=== PATIENT | female | born 1955 | race American Indian/Alaskan Native ===

== ENCOUNTER 2019-11-03 02:06 | Emergency (ER) | payer MEDICARE ==
[2019-11-03] MEDS ORDERED: ASPIRIN 325 MG TAB PO ONE (02:16)
--- NOTE | 2019-11-03 02:51 | XRay Report ---
CHEST 1 VIEW INDICATION: chest pain. COMPARISON: None. FINDINGS: Support devices: None. Heart: Normal. Lungs/Pleura: No consolidation is seen. There are mild interstitial opacities suggestive of lower air ways disease. No pleural abnormality. IMPRESSION: 1. Mild diffuse interstitial opacities are suggestive of lower airways disease. No pneumonia is seen. Signer Name: Jesus Clarke MD Signed: 11/03/2019 2:47 AM Workstation Name: [id number]
[2019-11-03] MEDS ORDERED: SUCRALFATE 1 GM/10 ML ORAL LIQD PO ONE (02:58)
[2019-11-03] MEDS ORDERED: diphenhydrAMINE 25 MG/10 ML ORAL LIQUID PO ONE (02:58)
[2019-11-03] MEDS ORDERED: FAMOTIDINE 20 MG TAB PO ONE (02:58)
--- NOTE | 2019-11-03 02:59 | Emergency Department Report ---
ED General Adult HPI - General Chief complaint: Chest Pain Stated complaint: CHEST PAIN Time Seen by Provider: 11/03/19 02:37 Source: patient, RN notes reviewed Mode of arrival: Ambulatory Limitations: No Limitations - History of Present Illness Initial comments: The patient is a 63-year-old female. She is not known to myself previously. She does not have a local primary care doctor or force adjustment supervisor that she is aware of. During the entire history and physical examination, I am metallurgical engineering technician and escorted by nurse HAO CASTELLANOS The patient presents to the ER with multiple complaints. Her first complaint is chest tightness. Her tightness is present for weeks, months and years. It is central. It does not radiate to the back, arms or neck. There is no vomiting. There is no diaphoresis. She indicates that she has occasional shortness of breath during physical exertion. This is neither new, worsened or different. She reports no DVT or pulmonary embolism risk factors. She reports significant psychosocial stressors. Apparently her significant other had committed suicide. This is very distressing to her. She has not gone to grief counseling. She is not homicidal or suicidal. She is very anxious and depressed. There is no complaint of headache, neck pain, abdominal pain, irritative or obstructive urinary symptoms, she has chronic back pain, and she denies focal extremity weakness and no numbness. She is not able to describe exacerbating or relieving factors, except as noted She is interested in speaking to a mental health person about outpatient bereavement resources. -: week(s), month(s), year(s) Location: chest Radiation: other Quality: other Consistency: other Improves with: other Worsens with: other Associated Symptoms: other - Related Data Previous Rx's Medication Instructions Recorded Last Taken Type Amlodipine Besylate [Norvasc] 5 mg PO QDAY #30 tablet 11/03/19 Unknown Rx Aspirin 325 mg PO ONCE #30 tablet 11/03/19 Unknown Rx Potassium Chloride 20 meq PO QDAY #30 packet 11/03/19 Unknown Rx Allergies Allergy/AdvReac Type Severity Reaction Status Date / Time No Known Allergies Allergy Unverified 05/12/13 17:50 ED Review of Systems ROS: Stated complaint: CHEST PAIN Other details as noted in HPI Constitutional: denies: fever ENT: as per HPI Respiratory: cough Cardiovascular: chest pain Gastrointestinal: denies: abdominal pain Genitourinary: denies: dysuria Musculoskeletal: back pain Neurological: as per HPI Psychiatric: anxiety, depression. denies: homicidal thoughts, suicidal thoughts Hematological/Lymphatic: as per HPI ED Past Medical Hx - Past Medical History Previous Medical History?: Yes Hx Hypertension: Yes Hx Heart Attack/AMI: Yes (x2 with unknown amt of stents) Hx Diabetes: Yes Additional medical history: high chol,. 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 - Surgical History Past Surgical History?: Yes Hx Coronary Stent: Yes (unknown amt) Additional Surgical History: bladder - Social History Smoking Status: Current Every Day Smoker Substance Use Type: Alcohol - Medications Home Medications: Home Medications Medication Instructions Recorded Confirmed Last Taken Type Amlodipine Besylate [Norvasc] 5 mg PO QDAY #30 tablet 11/03/19 Unknown Rx Aspirin 325 mg PO ONCE #30 tablet 11/03/19 Unknown Rx Potassium Chloride 20 meq PO QDAY #30 packet 11/03/19 Unknown Rx ED Physical Exam - General Limitations: No Limitations, Other (During the entire history and physical examination, escorted by HAO CASTELLANOS) General appearance: alert, in no apparent distress - Head Head exam: Present: atraumatic, normocephalic - Eye Eye exam: Present: normal appearance, EOMI. Absent: nystagmus - ENT ENT exam: Present: normal exam, normal orophraynx, mucous membranes moist, normal external ear exam - Neck Neck exam: Present: normal inspection, full ROM. Absent: tenderness, meningismus - Respiratory Respiratory exam: Present: normal lung sounds bilaterally, chest wall tenderness. Absent: respiratory distress - Cardiovascular Cardiovascular Exam: Present: regular rate, normal rhythm, normal heart sounds. Absent: bradycardia, tachycardia, irregular rhythm, systolic murmur, diastolic murmur, rubs, gallop - GI/Abdominal GI/Abdominal exam: Present: soft. Absent: distended, tenderness, guarding, rebound, rigid, pulsatile mass - Extremities Exam Extremities exam: Present: normal inspection, full ROM, other (2+ pulses noted in the bilateral upper and lower extremities. There is no palpable cord. negative Homans sign. Muscular compartments are soft. The pelvis is stable.). Absent: pedal edema, calf tenderness - Back Exam Back exam: Present: normal inspection, full ROM. Absent: tenderness, CVA tenderness (R), CVA tenderness (L), paraspinal tenderness, vertebral tenderness - Neurological Exam Neurological exam: Present: alert, oriented X3, normal gait, other (There is no facial droop. The tongue is midline. Extraocular movements are intact bilaterally. There is 5 out of 5 strength in bilateral upper and lower extre mities. Sensation is intact to light touch bilateral upper and lower extremities. There is a normal gait.). Absent: motor sensory deficit - Psychiatric Psychiatric exam: Present: depressed, agitated, anxious. Absent: homicidal ideation, suicidal ideation - Skin Skin exam: Present: warm, dry, intact, normal color. Absent: rash ED Course Vital Signs 11/03/19 11/03/19 11/03/19 02:10 03:00 04:16 Temperature 99.1 F 98.8 F Pulse Rate 86 75 67 Respiratory 19 20 20 Rate Blood Pressure 193/88 197/90 177/78 [Left] O2 Sat by Pulse 100 100 99 Oximetry - Reevaluation(s) Reevaluation #1: 11/03/19 04:53 Differential diagnosis, including but not limited to: Anxiety, conversion disorder, grief, bereavement, GERD, gastritis, hiatal hernia, pneumonia, acute coronary syndrome Assessment and plan: 63-year-old female with chronic chest pain for weeks, months and years, with a secondary complaint of anxiety, grief and bereavement after her significant other recently She is afebrile with reassuring vital signs and clinically sober. Elevated blood pressure is reviewed and appreciated, has equal pulses in upper and lower extremities, and has an unremarkable x-ray of the chest, this is very unlikely to be aortic disease. The patient is not homicidal suicidal, but she is distracted, anxious and appears depressed. Cardiovascular risk factor profile is reviewed and appreciated, however, given constellation of symptoms, duration of symptoms, objective testing thus far, including unremarkable EKG, unremarkable troponin, it is unlikely that the patient will benefit from admission to the medical service for accelerated cardiac rate stratification. Furthermore, this department in hospital have a protocol and policy whereby patients such as Ms. Higginbotham may obtain expedited outpatient follow-up with cardiology, to complete re-stratification. Her information will be sent to our local cardiology practice to complete this work- up, however, it is incumbent on the patient to follow-up. We will prescribe aspirin, Norvasc, and given her history of anxiety depression, we will obtain crisis consult/evaluation to provide the patient with outpatient resources. She is not homicidal suicidal, and while distracted, anxious and depressed, she does exhibit decision-making capacity, she is examinable, and she is directable. She therefore does not meet criteria for 1013 hold. Discussed plan of care with patient and nurse, patient has verbalized understanding. X-ray of the chest is reviewed and appreciated, do not clinically suspect pneumonia at this time. Reevaluation #2: 11/03/19 05:31 Patient resting comfortably in her stretcher, and in no acute distress at this time. She is reading the Bible at this time. Repeat troponin is pending. Care will be transferred to the oncoming physician, Dr. Chatman, to follow-up on psychiatry recommendations . Patient's paperwork has been transmitted over to our local cardiology practice, and I discussed her laboratory findings with her. 11/04/19 14:05 ED Medical Decision Making - Lab Data Result diagrams: 11/03/19 02:44 11/03/19 02:44 Vital Signs 11/03/19 11/03/19 11/03/19 02:10 03:00 04:16 Temperature 99.1 F 98.8 F Pulse Rate 86 75 67 Respiratory 19 20 20 Rate Blood Pressure 193/88 197/90 177/78 [Left] O2 Sat by Pulse 100 100 99 Oximetry Lab Results 11/03/19 11/03/19 11/03/19 Range/Units 02:44 02:44 03:37 WBC 9.0 (4.5-11.0) K/mm3 RBC 4.29 (3.65-5.03) M/mm3 Hgb 14.6 H (10.1-14.3) gm/dl Hct 42.2 (30.3-42.9) % MCV 98 H (79-97) fl MCH 34 H (28-32) pg MCHC 35 H (30-34) % RDW 13.6 (13.2-15.2) % Plt Count 307 (140-440) K/mm3 Lymph % (Auto) 37.2 H (13.4-35.0) % [place] % (Auto) 6.0 (0.0-7.3) % Eos % (Auto) 1.3 (0.0-4.3) % Baso % (Auto) 0.9 (0.0-1.8) % Lymph # 3.4 (1.2-5.4) K/mm3 [place] # 0.5 (0.0-0.8) K/mm3 Eos # 0.1 (0.0-0.4) K/mm3 Baso # 0.1 (0.0-0.1) K/mm3 Seg Neutrophils % 54.6 (40.0-70.0) % Seg Neutrophils # 4.9 (1.8-7.7) K/mm3 Sodium 139 (137-145) mmol/L Potassium 3.2 L (3.6-5.0) mmol/L Chloride 97.6 L (98-107) mmol/L Carbon Dioxide 21 L (22-30) mmol/L Anion Gap 24 mmol/L BUN 5 L (7-17) mg/dL Creatinine 0.6 L (0.7-1.2) mg/dL Estimated GFR > 60 ml/min BUN/Creatinine Ratio 8 % Glucose 158 H (65-100) mg/dL Calcium 9.9 (8.4-10.2) mg/dL Magnesium 2.00 (1.7-2.3) mg/dL Total Creatine Kinase 194 H (30-135) units/L Troponin T < 0.010 (0.00-0.029) ng/mL Salicylates (2.8-20.0) mg/dL Acetaminophen (10.0-30.0) ug/mL Plasma/Serum Alcohol (0-0.07) % 11/03/19 11/03/19 11/03/19 Range/Units 03:37 03:37 03:37 WBC (4.5-11.0) K/mm3 RBC (3.65-5.03) M/mm3 Hgb (10.1-14.3) gm/dl Hct (30.3-42.9) % MCV (79-97) fl MCH (28-32) pg MCHC (30-34) % RDW (13.2-15.2) % Plt Count (140-440) K/mm3 Lymph % (Auto) (13.4-35.0) % [place] % (Auto) (0.0-7.3) % Eos % (Auto) (0.0-4.3) % Baso % (Auto) (0.0-1.8) % Lymph # (1.2-5.4) K/mm3 [place] # (0.0-0.8) K/mm3 Eos # (0.0-0.4) K/mm3 Baso # (0.0-0.1) K/mm3 Seg Neutrophils % (40.0-70.0) % Seg Neutrophils # (1.8-7.7) K/mm3 Sodium (137-145) mmol/L Potassium (3.6-5.0) mmol/L Chloride (98-107) mmol/L Carbon Dioxide (22-30) mmol/L Anion Gap mmol/L BUN (7-17) mg/dL Creatinine (0.7-1.2) mg/dL Estimated GFR ml/min BUN/Creatinine Ratio % Glucose (65-100) mg/dL Calcium (8.4-10.2) mg/dL Magnesium (1.7-2.3) mg/dL Total Creatine Kinase (30-135) units/L Troponin T (0.00-0.029) ng/mL Salicylates 1.2 L (2.8-20.0) mg/dL Acetaminophen < 5.0 L (10.0-30.0) ug/mL Plasma/Serum Alcohol < 0.01 (0-0.07) % - EKG Data -: EKG Interpreted by Nv EKG shows normal: sinus rhythm Rate: normal - EKG Data When compared to previous EKG there are: previous EKG unavailable 11/03/19 04:52 There is no prior EKG available for comparison. Sinus rhythm, 69 bpm, normal axis, QTC within normal limits, nonspecific motion artifact, essentially unremarkable EKG however, there is no prior for comparison, its not a STEMI. - Radiology Data Radiology results: report reviewed, image reviewed Critical care attestation.: If time is entered above; I have spent that time in minutes in the direct care of this critically ill patient, excluding procedure time. ED Disposition Clinical Impression: History of chest pain, Bereavement care, Elevated blood pressure reading, Hypokalemia Disposition: ELOPED Is pt being admited?: No Does the pt Need Aspirin: No Condition: Good Additional Instructions: Avoid/minimize consumption of Motrin, ibuprofen, Naprosyn, Aleve, alcohol, heavy and/or spicy foods. Take the prescribed medications as directed. Follow-up with your primary care doctor or force adjustment supervisor within the next 5 days. Patient was found to have elevated blood pressure in the emergency room. Recommend diet modification, exercise, weight loss, and follow-up with primary care or cardiology for elevated blood pressure. Long-term complications of hypertension and elevated blood pressure include stroke, heart attack, disability, paralysis, loss of quality of life. Follow-up with outpatient resources that were provided to the patient by the mental health team. Please return to the emergency room right away with new, worsened or different symptoms, or symptoms not present on the initial emergency room evaluation. Prescriptions: Aspirin 325 mg PO ONCE #30 tablet Amlodipine Besylate [Norvasc] 5 mg PO QDAY #30 tablet Potassium Chloride 20 meq PO QDAY #30 packet Referrals: DUANE CADENA MD [Staff Physician] - 3-5 Days [facility] [Provider Group] - 3-5 Days [facility] [Provider Group] - 3-5 Days
[2019-11-03 03:06] LABS: Basophils # (Auto) 0.1 K/mm3 (0.0-0.1); Basophils % (Auto) 0.9 % (0.0-1.8); Eosinophils # (Auto) 0.1 K/mm3 (0.0-0.4); Eosinophils % (Auto) 1.3 % (0.0-4.3); Hematocrit 42.2 % (30.3-42.9); Hemoglobin 14.6 gm/dl (10.1-14.3); Lymphocytes # (Auto) 3.4 K/mm3 (1.2-5.4); Lymphocytes % (Auto) 37.2 % (13.4-35.0); Mean Corpuscular HGB Conc 35 % (30-34); Mean Corpuscular Volume 98 fl (79-97); Monocytes # (Auto) 0.5 K/mm3 (0.0-0.8); Platelet Count 307 K/mm3 (140-440); Red Blood Count 4.29 M/mm3 (3.65-5.03); Red Cell Distribution Width 13.6 % (13.2-15.2)
[2019-11-03 03:23] LABS: BUN/Creatinine Ratio 8; Blood Urea Nitrogen 5 mg/dL (7-17); Calcium 9.9 mg/dL (8.4-10.2); Hemolysis Index 12
[2019-11-03 04:17] VITALS: BP 177/78
[2019-11-03] MEDS ORDERED: POTASSIUM CHLORIDE ER 20 MEQ TAB PO ONE (04:46)
== END 2019-11-03 06:00 | disposition left against medical advice (07) ==
LOC: ED 02:06
DX: E87.6 Hypokalemia (principal); I10 Essential (primary) hypertension; Z63.4 Disappearance and death of family member; I25.2 Old myocardial infarction; E11.9 Type 2 diabetes mellitus without complications; E78.00 Pure hypercholesterolemia, unspecified; F17.200 Nicotine dependence, unspecified, uncomplicated; Z79.899 Other long term (current) drug therapy; Z79.82 Long term (current) use of aspirin
CPT/HCPCS: 36415; 71045; 80048; 80320; 82550; 83735; 84484; 85025; 93005; 93010; G0480; Q0163

== ENCOUNTER 2021-02-25 13:58 | Observation (INO) | payer MEDICARE ==
[2021-02-25] MEDS ORDERED: LORazepam 2 MG/ML VIAL ONE (14:07)
--- NOTE | 2021-02-25 14:19 | Emergency Department Report ---
<ABDI VILLAGOMEZ - Last Filed: 02/25/21 21:39> ED Seizure HPI - General Stated Complaint: SEIZURE Time Seen by Provider: 02/25/21 14:11 - Related Data Previous Rx's Medication Instructions Recorded Last Taken Type Aspirin EC [Halfprin EC] 81 mg PO QDAY #30 tablet. 05/16/20 Unknown Rx AtorvaSTATin [Lipitor] 40 mg PO QHS #60 tablet 05/16/20 Unknown Rx Citalopram [Celexa] 20 mg PO QDAY #60 tablet 05/16/20 Unknown Rx Metoprolol [Lopressor TAB] 25 mg PO BID #120 tablet 05/16/20 Unknown Rx Valsartan [Diovan] 80 mg PO BID #60 tablet 05/16/20 Unknown Rx amLODIPine 10 mg PO DAILY #60 tablet 05/16/20 Unknown Rx Allergies Allergy/AdvReac Type Severity Reaction Status Date / Time No Known Allergies Allergy Unverified 05/11/20 05:28 ED Past Medical Hx - Medications Home Medications: Home Medications Medication Instructions Recorded Confirmed Last Taken Type Aspirin EC [Halfprin EC] 81 mg PO QDAY #30 tablet. 05/16/20 Unknown Rx AtorvaSTATin [Lipitor] 40 mg PO QHS #60 tablet 05/16/20 Unknown Rx Citalopram [Celexa] 20 mg PO QDAY #60 tablet 05/16/20 Unknown Rx Metoprolol [Lopressor TAB] 25 mg PO BID #120 tablet 05/16/20 Unknown Rx Valsartan [Diovan] 80 mg PO BID #60 tablet 05/16/20 Unknown Rx amLODIPine 10 mg PO DAILY #60 tablet 05/16/20 Unknown Rx ED Course - Reevaluation(s) Reevaluation #2: 02/25/21 21:39 Patient remains postictal. Hospitalist notified ED Medical Decision Making - Lab Data Result diagrams: 02/25/21 14:29 02/25/21 14:29 - Radiology Data Radiology results: report reviewed (Chest x-ray, CT head), image reviewed (Chest x-ray, CT head) interpreted by me: Chest x-ray-no definite focal infiltrates, no pneumothorax. [facility] [address] [place] [address] XRay Report Signed Patient: KRANTHI VELASCO MR#: [id number] 33 : 1955 Acct:[id number] Age/Sex: 65 / F ADM Date: 02/25/21 Loc: ED Attending Dr: Ordering Physician: JRAED ORTIZ MD Date of Service: 02/25/21 Procedure(s ): XR chest 1V ap Accession Number(s): [id number] cc: JARED ORTIZ MD Fluoro Time In Minutes: CHEST 1 VIEW INDICATION: seizure, AMS COMPARISON: 05/11/2020 FINDINGS: SUPPORT DEVICES: None. HEART / MEDIASTINUM: No significant abnormality. LUNGS / PLEURA: No significant pulmonary or pleural abnormality. No pneumothorax. ADDITIONAL FINDINGS: IMPRESSION: 1. No acute cardiopulmonary disease Signer Name: Bobby Vieira MD Signed: 02/25/2021 4:53 PM Workstation Name: [id number] Transcribed By: WG Dictated By: Bobby Vieira MD Electronically Authenticated By: Bobby Vieira MD Signed Date/Time: 02/25/211652 DD/ 52 TD/TT: Print Cancel [facility] [address] [place] [address] Cat Scan Report Signed Patient: KRANTHI VELASCO MR#: [id number] [birth year] : 1955 Acct:[id number] Age/Sex: 65 / F ADM Date: 02/25/21 Loc: ED Attending Dr: Ordering Physician: JARED ORTIZ MD Date of Service: 02/25/21 Procedure(s): CT head/brain wo con Accession Number(s): [id number] cc: JARED ORTIZ MD NONENHANCED CT SCAN OF THE HEAD: INDICATION / CLINICAL INFORMATION: 65 years Female; seizure, AMS. TECHNIQUE: Routine CT head without contrast. All CT scans at this location are performed using CT dose reduction for ALARA by means of automated exposure control. COMPARISON: CT scan of the head from May 2020 FINDINGS: BRAIN / INTRACRANIAL CONTENTS: No acute hemorrhage, mass effect, midline shift, hydrocephalus, or acute, large territorial infarct. No chronic infarct or focal atrophy. Normal brain volume and ventricular/sulcal size for age. No significant white matter abnormality. 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 ORBITS: No significant abnormality of visualized orbits. SINUSES / MASTOIDS: No significant abnormality of the visualized paranasal sinuses or mastoid air cells. ADDITIONAL FINDINGS: None. IMPRESSION: No focal mass, hemorrhage, hydrocephalus, or acute, large terr itorial infarct. Signer Name: Marianne Whaley MD Signed: 02/25/2021 7:32 PM Workstation Name: [email or web address] Transcribed By: BS Dictated By: Marianne Jhonson MD Electronically Authenticated By: Marianne Johnson MD Signed Date/Time: 02/25/211931 DD/ 22 TD/TT: Print Cancel ED Disposition Clinical Impression: Seizure, Altered mental status, Postictal state Disposition: DC-09 OP ADMIT IP TO THIS HOSP Is pt being admited?: Yes Does the pt Need Aspirin: No Condition: Fair Time of Disposition: 21:19 (Hospitalist paged (Dr Jiménez)) <JARED ORTIZ - Last Filed: 02/26/21 06:56> ED Seizure HPI - General Source: EMS - History of Present Illness Initial Comments: 65-year-old female, history of seizure disorder, CAD, hypertension, diabetes, presents to ED following seizure at home. EMS presents to ED with patient yelling, screaming, cursing. This is, apparently, patient's postictal state. Per family on scene, patient had multiple seizures today. She does not take any seizure medication. Alcohol and drug use unknown. EMS did not give any m edications en route. In ED, patient is uncooperative with exam and questioning. Will give Ativan 2 mg. Complaint: seizure -: This afternoon Description of Episode: post-event confusion Witnessed:: Yes Seizure History: known seizure disorder Place: home Treatments Prior to Arrival: none ED Review of Systems ROS: Stated complaint: SEIZURE Other details as noted in HPI Comment: Unobtainable due to pts medical conditions ED Past Medical Hx - Past Medical History Hx Hypertension: Yes Hx Heart Attack/AMI: Yes (x2 with unknown amt of stents) Hx Diabetes: Yes Additional medical history: high chol,. 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 Absent: respiratory distress - Cardiovascular Cardiovascular Exam: Present: normal rhythm, tachycardia - GI/Abdominal GI/Abdominal exam: Absent: distended - Extremities Exam Extremities exam: Present: normal inspection - Neurological Exam Neurological exam: Present: alert, CN II-XII intact. Absent: motor sensory deficit - Psychiatric Psychiatric exam: Present: agitated - Skin Skin exam: Present: warm, dry, intact, normal color ED Course Vital Signs 02/25/21 02/25/21 02/25/21 14:04 14:15 14:29 Temperature 99.6 F Pulse Rate 110 H 101 H Respiratory 28 H 22 26 H Rate Blood Pressure 167/74 Blood Pressure 167/74 [Left] O2 Sat by Pulse 88 93 Oximetry 02/25/21 02/25/21 02/25/21 16:45 17:31 18:01 Temperature Pulse Rate Respiratory Rate Blood Pressure 109/53 138/64 120/58 Blood Pressure [Left] O2 Sat by Pulse 97 97 93 Oximetry 02/25/21 02/25/21 02/25/21 18:02 19:01 20:01 Temperature Pulse Rate 106 H 101 H Respiratory 20 26 H Rate Blood Pressure 138/64 116/54 Blood Pressure 133/66 [Left] O2 Sat by Pulse 97 88 Oximetry 02/25/21 02/25/21 02/25/21 21:01 22:01 23:01 Temperature Pulse Rate 104 H 108 H 103 H Respiratory 27 H 31 H 25 H Rate Blood Pressure 146/68 134/58 136/63 Blood Pressure [Left] O2 Sat by Pulse 95 93 94 Oximetry 02/25/21 02/25/21 02/26/21 23:21 23:22 00:01 Temperature 100.8 F H Pulse Rate 106 H 103 H Respiratory 23 23 Rate Blood Pressure 136/63 161/74 Blood Pressure [Left] O2 Sat by Pulse 92 94 Oximetry - Reevaluation(s) Reevaluation #1: 02/25/21 15:20 X-ray tech attempted to obtain chest x-ray, however patient uncooperative and combative. I asked patient multiple times to turn over. Patient had covers over her head. I remove the covers from over her head, patient responded," Give me back my covers you stupid bitch! Leave me the fuck alone!" Patient continues to be verbally abusive and uncooperative. Patient has already received Ativan. Will order Geodon so that we will be able to obtain CT and x- ray. Attempted to call patient's family to establish what her baseline is using numbers listed in the chart, however those numbers were disconnected. It is unclear if patient has underlying psychiatric history. ED Medical Decision Making - Lab Data Result diagrams: 02/25/21 14:29 02/25/21 14:29 - Medical Decision Making 65-year-old male presents to ED following seizure at home. Patient is belligerent and combative. Apparently this is her postictal state, per son, according to EMS. Patient was given Ativan upon arrival. Patient did calm down, however when attempting to obtain CT and x-rays, patient became agitated and uncooperative again. Geodon has been ordered so that we may be able to obtain radiological studies. Keppra and IV fluids has been ordered. Patient has WBCs of 18, no bandemia present. Rocephin ordered as well, however this leukocytosis may be in response to the seizure itself. Patient will be signed out to Dr. Villagomez to follow-up on her CT head and chest x-ray. If patient remains postictal and does not return to her baseline, she may require admission. - Differential Diagnosis Seizure, prolonged postictal state, intracranial abnormality, intoxication Critical care attestation.: If time is entered above; I have spent that time in minutes in the direct care of this critically ill patient, excluding procedure time.
[2021-02-25] MEDS ORDERED: LORazepam 2 MG/ML VIAL IV ONE (14:20)
[2021-02-25] MEDS ORDERED: SODIUM CHLORIDE 0.9% 1000 ML 1,000 ML IV ONE (14:20)
[2021-02-25 14:52] LABS: Bilirubin,Urine NEG (Negative); Blood,Urine MOD (Negative); Color,Urine Straw (Yellow); Urobilinogen,Urine < 2.0 mg/dL (<2.0)
[2021-02-25 14:57] LABS: Hematocrit 41.9 % (30.3-42.9); Hemoglobin 14.5 gm/dl (10.1-14.3); Red Blood Count 4.16 M/mm3 (3.65-5.03)
[2021-02-25 14:58] LABS: Mean Corpuscular HGB Conc 35 % (30-34); Mean Corpuscular Volume 101 fl (79-97); Platelet Count 301 K/mm3 (140-440); Red Cell Distribution Width 14.3 % (13.2-15.2)
[2021-02-25 15:00] LABS: Amphetamine Screen,Urine PRESUMPTIVE NEGATIVE; Benzodiazepines Screen,Urine PRESUMPTIVE NEGATIVE; Cannabinoid Screen,Urine PRESUMPTIVE POSITIVE; Cocaine Screen,Urine PRESUMPTIVE NEGATIVE; Methadone Screen,Urine PRESUMPTIVE NEGATIVE; Opiate Screen,Urine PRESUMPTIVE NEGATIVE
[2021-02-25 15:13] LABS: Alanine Aminotransferase 16 units/L (7-56); Albumin 4.5 g/dL (3.9-5); Blood Urea Nitrogen 8 mg/dL (7-17); Calcium 9.1 mg/dL (8.4-10.2); Hemolysis Index 99
[2021-02-25] MEDS ORDERED: ZIPRASIDONE MESYLATE 20 MG VIAL IM ONE (15:20)
[2021-02-25] MEDS ORDERED: levETIRAcetam 1,000 MG in SODIUM CHLORIDE 0.9% 100 ML IV ONE (15:23)
[2021-02-25 15:25] LABS: BUN/Creatinine Ratio 11; Bilirubin,Direct < 0.2 mg/dL (0-0.2)
[2021-02-25 15:27] LABS: Total Cells Counted 100
[2021-02-25 15:28] LABS: Platelet Estimate Consistent w Auto; RBC Morphology Normal
[2021-02-25] MEDS ORDERED: cefTRIAXone/NS 2 GM/100 ML 2 GM/100 ML BAG IV ONE (15:29)
[2021-02-25] MEDS ORDERED: levETIRAcetam 1000 MG/NS 0.75% 1,000 MG/100 ML BAG IV ONE ×2 (15:30→18:38)
--- NOTE | 2021-02-25 16:58 | XRay Report ---
CHEST 1 VIEW INDICATION: seizure, AMS COMPARISON: 05/11/2020 FINDINGS: SUPPORT DEVICES: None. HEART / MEDIASTINUM: No significant abnormality. LUNGS / PLEURA: No significant pulmonary or pleural abnormality. No pneumothorax. ADDITIONAL FINDINGS: IMPRESSION: 1. No acute cardiopulmonary disease Signer Name: Bobby Vieira MD Signed: 02/25/2021 4:53 PM Workstation Name: [id number]
--- NOTE | 2021-02-25 19:36 | Cat Scan Report ---
NONENHANCED CT SCAN OF THE HEAD: INDICATION / CLINICAL INFORMATION: 65 years Female; seizure, AMS. TECHNIQUE: Routine CT head without contrast. All CT scans at this location are performed using CT dos e reduction for ALARA by means of automated exposure control. COMPARISON: CT scan of the head from May 2020 FINDINGS: BRAIN / INTRACRANIAL CONTENTS: No acute hemorrhage, mass effect, midline shift, hydrocephalus, or acu te, large territorial infarct. No chronic infarct or focal atrophy. Normal brain volume and ventricul ar/sulcal size for age. No significant white matter abnormality. 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 ORBITS: No significant abnormality of visualized orbits. SINUSES / MASTOIDS: No significant abnormality of the visualized paranasal sinuses or mastoid air erich ls. ADDITIONAL FINDINGS: None. IMPRESSION: No focal mass, hemorrhage, hydrocephalus, or acute, large territorial infarct. Signer Name: Marianne Whaley MD Signed: 02/25/2021 7:32 PM Workstation Name: [id number]
[2021-02-25] MEDS ORDERED: ALBUTEROL 2.5 MG/3 ML NEBU IH PRN (22:04)
[2021-02-25] MEDS ORDERED: ONDANSETRON 4 MG/2 ML INJ IV PRN (22:04)
[2021-02-25] MEDS ORDERED: DEXTROSE 50% IN WATER (25GM) 50 ML SYRINGE IV PRN (22:04)
--- NOTE | 2021-02-25 22:12 | History and Physical Report ---
History of Present Illness Date of examination: 02/25/21 Date of admission: 02/25/21 Chief complaint: Seizure History of present illness: 65-year-old female with past medical history of CAD seizure disorder hypertension diabetes was brought to the emergency room because of seizure multiple times at home today. EMS presents to ED with patient yelling, screaming, cursing. This is, apparently, patient's postictal state. Per family on scene, patient had multiple seizures today. She does not take any seizure medication. Alcohol and drug use unknown. EMS did not give any medications en route. Initial CT scan of the head shows no acute intracranial abnormality Past History Past Medical History: CAD, diabetes, hypertension, seizures Medications and Allergies Allergies Allergy/AdvReac Type Severity Reaction Status Date / Time No Known Allergies Allergy Unverified 05/11/20 05:28 Home Medications Medication Instructions Recorded Confirmed Last Taken Type Aspirin EC [Halfprin EC] 81 mg PO QDAY #30 tablet. 05/16/20 Unknown Rx AtorvaSTATin [Lipitor] 40 mg PO QHS #60 tablet 05/16/20 Unknown Rx Citalopram [Celexa] 20 mg PO QDAY #60 tablet 05/16/20 Unknown Rx Metoprolol [Lopressor TAB] 25 mg PO BID #120 tablet 05/16/20 Unknown Rx Valsartan [Diovan] 80 mg PO BID #60 tablet 05/16/20 Unknown Rx amLODIPine 10 mg PO DAILY #60 tablet 05/16/20 Unknown Rx Active Meds: Active Medications Acetaminophen (Acetaminophen 325 Mg Tab) 650 mg PO Q4H PRN PRN Reason: Pain MILD(1-3)/Fever >100.5/SOTOMAYOR Albuterol (Albuterol 2.5 Mg/3 Ml Nebu) 2.5 mg IH Q3HRT PRN PRN Reason: Shortness Of Breath Albuterol/Ipratropium (Ipratropium/Albuterol Sulfate 3 Ml Ampul.Neb) 1 ampul IH Q6HRT [facility] Amlodipine Besylate (Amlodipine 10 Mg Tab) 10 mg PO DAILY A[facility] Aspirin (Aspirin Ec 81 Mg Tab) 81 mg PO QDAY [facility] Dextrose (Dextrose 50% In Water (25gm) 50 Ml Syringe) 50 ml IV Q30MIN PRN; Protocol PRN Reason: Hypoglycemia Famotidine (Famotidine 20 Mg/2 Ml Inj) 20 mg IV BID A[facility] Heparin Sodium (Porcine) (Heparin 5,000 Unit/1 Ml Vial) 5,000 unit SUB-Q Q8HR [facility] Hydralazine HCl (Hydralazine 20 Mg/1 Ml Inj) 10 mg IV Q6H PRN PRN Reason: htn Sodium Chloride (Nacl 0.9% 1000 Ml) 1,000 mls @ 100 mls/hr IV DIRECT [facility]MAN Levetiracetam 500 mg/ Dextrose 105 mls @ 400 mls/hr IV Q12HR [facility] Insulin Human Lispro (Insulin Lispro 100 Unit/Ml) 0 unit SUB-Q Q6HR A[facility]MAN; Protocol Ondansetron HCl (Ondansetron 4 Mg/2 Ml Inj) 4 mg IV Q8H PRN PRN Reason: Nausea And Vomiting Sodium Chloride (Sodium Chloride 0.9% 10 Ml Flush Syringe) 10 ml IV BID ABD[facility]MAN Sodium Chloride (Sodium Chloride 0.9% 10 Ml Flush Syringe) 10 ml IV PRN PRN PRN Reason: LINE FLUSH Review of Systems Neurological: seizures Exam - Constitutional Vitals: Temp Pulse Resp BP Pulse Ox 99.6 F 104 H 27 H 146/68 95 02/25/21 14:29 02/25/21 21:01 02/25/21 21:01 02/25/21 21:01 02/25/21 21:01 General appearance: Present: no acute distress, well-nourished - EENT Eyes: Present: PERRL ENT: hearing intact, clear oral mucosa - Neck Neck: Present: supple, normal ROM - Respiratory Respiratory effort: normal Respiratory: bilateral: CTA - Cardiovascular Heart Sounds: Present: S1 & S2. Absent: rub, click - Extremities Extremities: pulses symmetrical, No edema Peripheral Pulses: within normal limits - Abdominal General gastrointestinal: Present: soft, non-tender, non-distended, normal bowel sounds Female genitourinary: Present: normal - Integumentary Integumentary: Present: clear, warm, dry - Musculoskeletal Musculoskeletal: gait normal, strength equal bilaterally - Psychiatric Psychiatric: appropriate mood/affect, intact judgment & insight - Neurologic Neurologic: CNII-XII intact, moves all extremities Results - Labs CBC & Chem 7: 02/25/21 14:29 02/25/21 14:29 Labs: Laboratory Last Values WBC 18.5 K/mm3 (4.5-11.0) H 02/25/21 14:29 RBC 4.16 M/mm3 (3.65-5.03) 02/25/21 14:29 Hgb 14.5 gm/dl (10.1-14.3) H 02/25/21 14:29 Hct 41.9 % (30.3-42.9) 02/25/21 14:29 MCV 101 fl (79-97) H 02/25/21 14:29 MCH 35 pg (28-32) H 02/25/21 14:29 MCHC 35 % (30-34) H 02/25/21 14:29 RDW 14.3 % (13.2-15.2) 02/25/21 14:29 Plt Count 301 K/mm3 (140-440) 02/25/21 14:29 Lymph % (Auto) [employer] 02/25/21 14:29 [place] % (Auto) [employer] 02/25/21 14:29 Eos % (Auto) [employer] 02/25/21 14:29 Baso % (Auto) [employer] 02/25/21 14:29 Lymph # (Auto) [employer] 02/25/21 14:29 [place] # (Auto) [employer] 02/25/21 14:29 Eos # (Auto) [employer] 02/25/21 14:29 Baso # (Auto) [employer] 02/25/21 14:29 Add Manual Diff Complete 02/25/21 14:29 Total Counted 100 02/25/21 14:29 Seg Neutrophils % [employer] 02/25/21 14:29 Seg Neuts % (Manual) 94.0 % (40.0-70.0) H 02/25/21 14:29 Lymphocytes % (Manual) 2.0 % (13.4-35.0) L 02/25/21 14:29 Monocytes % (Manual) 4.0 % (0.0-7.3) 02/25/21 14:29 Nucleated RBC % Not Reportable 02/25/21 14:29 Seg Neutrophils # [employer]her 02/25/21 14:29 Seg Neutrophils # Man 17.4 K/mm3 (1.8-7.7) H 02/25/21 14:29 Band Neutrophils # 0.0 K/mm3 02/25/21 14:29 Lymphocytes # (Manual) 0.4 K/mm3 (1.2-5.4) L 02/25/21 14:29 Abs React Lymphs (Man) 0.0 K/mm3 02/25/21 14:29 Monocytes # (Manual) 0.7 K/mm3 (0.0-0.8) 02/25/21 14:29 Eosinophils # (Manual) 0.0 K/mm3 (0.0-0.4) 02/25/21 14:29 Basophils # (Manual) 0.0 K/mm3 (0.0-0.1) 02/25/21 14:29 Metamyelocytes # 0.0 K/mm3 02/25/21 14:29 Myelocytes # 0.0 K/mm3 02/25/21 14:29 Promyelocytes # 0.0 K/mm3 02/25/21 14:29 Blast Cells # 0.0 K/mm3 02/25/21 14:29 WBC Morphology Not Reportable 02/25/21 14:29 WBC Morphology TNR 02/25/21 14:29 Hypersegmented Neuts Not Reportable 02/25/21 14:29 Hyposegmented Neuts Not Reportable 02/25/21 14:29 Hypogranular Neuts Not Reportable 02/25/21 14:29 Smudge Cells Not Reportable 02/25/21 14:29 Toxic Granulation Not Reportable 02/25/21 14:29 Toxic Vacuolation Not Reportable 02/25/21 14:29 Dohle Bodies Not Reportable 02/25/21 14:29 Pelger-Huet Anomaly Not Reportable 02/25/21 14:29 Peter Rods Not Reportable 02/25/21 14:29 Platelet Estimate Consistent w auto 02/25/21 14:29 Clumped Platelets Not Reportable 02/25/21 14:29 Plt Clumps, EDTA Not Reportable 02/25/21 14:29 Large Platelets Not Reportable 02/25/21 14:29 Giant Platelets Not Reportable 02/25/21 14:29 Platelet Satelliting Not Reportable 02/25/21 14:29 Plt Morphology Comment Not Reportable 02/25/21 14:29 RBC Morphology Normal 02/25/21 14:29 Dimorphic RBCs Not Reportable 02/25/21 14:29 Polychromasia Not Reportable 02/25/21 14:29 Hypochromasia Not Reportable 02/25/21 14:29 Poikilocytosis Not Reportable 02/25/21 14:29 Anisocytosis Not Reportable 02/25/21 14:29 Microcytosis Not Reportable 02/25/21 14:29 Macrocytosis Not Reportable 02/25/21 14:29 Spherocytes Not Reportable 02/25/21 14:29 Pappenheimer Bodies Not Reportable 02/25/21 14:29 Sickle Cells Not Reportable 02/25/21 14:29 Target Cells Not Reportable 02/25/21 14:29 Tear Drop Cells Not Reportable 02/25/21 14:29 Ovalocytes Not Reportable 02/25/21 14:29 Helmet Cells Not Reportable 02/25/21 14:29 Toribio-Blawnox Bodies Not Reportable 02/25/21 14:29 [place] Rings Not Reportable 02/25/21 14:29 [place] Cells Not Reportable 02/25/21 14:29 Bite Cells Not Reportable 02/25/21 14:29 Crenated Cell Not Reportable 02/25/21 14:29 Elliptocytes Not Reportable 02/25/21 14:29 Acanthocytes (Spur) Not Reportable 02/25/21 14:29 Rouleaux Not Reportable 02/25/21 14:29 Hemoglobin C Crystals Not Reportable 02/25/21 14:29 Schistocytes Not Reportable 02/25/21 14:29 Malaria parasites Not Reportable 02/25/21 14:29 Shravan Bodies Not Reportable 02/25/21 14:29 Hem Pathologist Commnt No 02/25/21 14:29 Sodium 136 mmol/L (137-145) L 02/25/21 14:29 Potassium 4.4 mmol/L (3.6-5.0) 02/25/21 14:29 Chloride 99.3 mmol/L (98-107) 02/25/21 14:29 Carbon Dioxide 15 mmol/L (22-30) L 02/25/21 14:29 Anion Gap 26 mmol/L 02/25/21 14:29 BUN 8 mg/dL (7-17) 02/25/21 14:29 Creatinine 0.7 mg/dL (0.6-1.2) 02/25/21 14:29 Estimated GFR > 60 ml/min 02/25/21 14:29 BUN/Creatinine Ratio 11 % 02/25/21 14:29 Glucose 234 mg/dL (65-100) H 02/25/21 14:29 Calcium 9.1 mg/dL (8.4-10.2) 02/25/21 14:29 Total Bilirubin 0.80 mg/dL (0.1-1.2) 02/25/21 14:29 Direct Bilirubin < 0.2 mg/dL (0-0.2) 02/25/21 14:29 Indirect Bilirubin 0.6 mg/dL 02/25/21 14:29 AST 34 units/L (5-40) 02/25/21 14:29 ALT 16 units/L (7-56) 02/25/21 14:29 Alkaline Phosphatase 98 units/L (35-129) 02/25/21 14:29 Total Protein 7.6 g/dL (6.3-8.2) 02/25/21 14:29 Albumin 4.5 g/dL (3.9-5) 02/25/21 14:29 Albumin/Globulin Ratio 1.5 % 02/25/21 14:29 Urine Color Straw (Yellow) 02/25/21 Unknown Urine Turbidity Clear (Clear) 02/25/21 Unknown Urine pH 5.0 (5.0-7.0) 02/25/21 Unknown Ur Specific [place] 1.012 (1.003-1.030) 02/25/21 Unknown Urine Protein 100 mg/dl mg/dL (Negative) 02/25/21 Unknown Urine Glucose (UA) >=500 mg/dL (Negative) 02/25/21 Unknown Urine Ketones 20 mg/dL (Negative) 02/25/21 Unknown Urine Blood Mod (Negative) 02/25/21 Unknown Urine Nitrite Neg (Negative) 02/25/21 Unknown Urine Bilirubin Neg (Negative) 02/25/21 Unknown Urine Urobilinogen < 2.0 mg/dL (<2.0) 02/25/21 Unknown Ur Leukocyte Esterase Neg (Negative) 02/25/21 Unknown Urine WBC (Auto) 1.0 /HPF (0.0-6.0) 02/25/21 Unknown Urine RBC (Auto) 2.0 /HPF (0.0-6.0) 02/25/21 Unknown U Epithel Cells (Auto) < 1.0 /HPF (0-13.0) 02/25/21 Unknown Urine Opiates Screen Presumptive negative 02/25/21 Unknown Urine Methadone Screen Presumptive negative 02/25/21 Unknown Ur Barbiturates Screen Presumptive negative 02/25/21 Unknown Ur Phencyclidine Scrn Presumptive negative 02/25/21 Unknown Ur Amphetamines Screen Presumptive negative 02/25/21 Unknown U Benzodiazepines Scrn Presumptive negative 02/25/21 Unknown Urine Cocaine Screen Presumptive negative 02/25/21 Unknown U Marijuana (THC) Screen Presumptive positive 02/25/21 Unknown Drugs of Abuse Note Disclamer 02/25/21 Unknown Plasma/Serum Alcohol < 0.01 % (0-0.07) 02/25/21 14:29 Microbiology: Microbiology 02/25/21 15:56 Peripheral/Venous Blood Culture - Preliminary Culture in Progress 02/25/21 15:56 Peripheral/Venous Blood Culture - Preliminary Culture in Progress - Imaging and Cardiology CT Scan - head: report reviewed Assessment and Plan VTE prophylaxis?: Chemical Plan of care discussed with patient/family: Yes - Patient Problems (1) Seizure Current Visit: Yes Status: Acute Plan to address problem: Admit the patient to the medical telemetry. Patient is on seizure precaution. N.p.o. normal saline at the rate of 100 cc/h Keppra 500 mg IV every 12 hours. Ativan as needed.. We order EEG. We also consult neurology to see the patient. Patient advised to compliant with the medication (2) Postictal state Current Visit: Yes Status: Acute Plan to address problem: Patient is on seizure precaution. N.p.o. normal saline at the rate of 100 cc/h Keppra 500 mg IV every 12 hours. Ativan as needed.. We order EEG. We also consult neurology to see the patient. Patient advised to compliant with the medication (3) Hypertension Current Visit: Yes Status: Acute Plan to address problem: Diovan 80 mg p.o. twice daily amlodipine 10 mg p.o. daily. Hydralazine 10 mg IV every 6 hours as needed. We will monitor the blood pressure closely (4) Diabetes Current Visit: Yes Status: Acute Plan to address problem: We will put the patient on Humalog sliding scale Accu-Chek every 6 hours with moderate dose coverage. We also consult for diabetic education (5) CAD (coronary artery disease) Current Visit: Yes Status: Acute Plan to address problem: Stable we will put the patient on aspirin 81 mg p.o. daily metoprolol 25 mg p.o. twice daily. Lipitor 40 mg p.o. nightly (6) DVT prophylaxis Current Visit: Yes Status: Acute Plan to address problem: Heparin 5000 units subcu every 8 hours for DVT prophylaxis. Pepcid 20 mg p.o. twice daily for GI prophylaxis. Patient is a full code
[2021-02-25] MEDS ORDERED: ACETAMINOPHEN 650 MG RECT SUPP PR PRN (23:15)
[2021-02-25] MEDS: levETIRAcetam 500 MG in DEXTROSE 5% IN WATER 100 ML IV SCH (23:33)
[2021-02-26] MEDS: INSULIN LISPRO 100 UNIT/ML SUB-Q SCH ×4 (00:01→17:57)
[2021-02-26] MEDS: SODIUM CHLORIDE 0.9% 1000 ML 1,000 ML IV SCH ×2 (01:25→13:20)
[2021-02-26] MEDS ORDERED: IPRATROPIUM/ALBUTEROL SULFATE 3 ML AMPUL.NEB IH SCH (02:00)
[2021-02-26] MEDS: HEPARIN 5,000 UNIT/1 ML VIAL SUB-Q SCH ×3 (06:39→21:38)
--- NOTE | 2021-02-26 07:34 | Consultation ---
History of Present Illness Consult date: 02/26/21 Reason for Consult: recurrent seizure History of present illness: Seizure History of present illness: 65-year-old female with past medical history of CAD ,seizure disorder possibly as per family she was diagnosed with possible anxiety and no real seizure !!, hypertension diabetes was brought to the emergency room because of seizure multiple times at home today. EMS presents to ED with patient yelling, screaming, cursing. Per family on scene, patient had multiple seizures today. She does not take any seizure medication. Alcohol and drug use unknown. EMS did not give any medications en route. per son his mom started feeling funny had HV spell then she started shacking for 15 seconds followed by confusion and yelling ,pt. bit her tongue she does not recall event , according to son pt. 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 According to family all started after pt. . Initial CT scan of the head shows no acute intracranial abnormality Past History Past Medical History: CAD, diabetes, hypertension, seizures Medications and Allergies Allergies Allergy/AdvReac Type Severity Reaction Status Date / Time No Known Allergies Allergy Unverified 05/11/20 05:28 Home Medications Medication Instructions Recorded Confirmed Last Taken Type Aspirin EC [Halfprin EC] 81 mg PO QDAY #30 tablet. 05/16/20 Unknown Rx AtorvaSTATin [Lipitor] 40 mg PO QHS #60 tablet 05/16/20 Unknown Rx Citalopram [Celexa] 20 mg PO QDAY #60 tablet 05/16/20 Unknown Rx Metoprolol [Lopressor TAB] 25 mg PO BID #120 tablet 05/16/20 Unknown Rx Valsartan [Diovan] 80 mg PO BID #60 tablet 05/16/20 Unknown Rx amLODIPine 10 mg PO DAILY #60 tablet 05/16/20 Unknown Rx Active Meds: Active Medications Acetaminophen (Acetaminophen 325 Mg Tab) 650 mg PO Q4H PRN PRN Reason: Pain MILD(1-3)/Fever >100.5/SOTOMAYOR Albuterol (Albuterol 2.5 Mg/3 Ml Nebu) 2.5 mg IH Q3HRT PRN PRN Reason: Shortness Of Breath Albuterol/Ipratropium (Ipratropium/Albuterol Sulfate 3 Ml Ampul.Neb) 1 ampul IH Q6HRT [facility] Amlodipine Besylate (Amlodipine 10 Mg Tab) 10 mg PO DAILY [facility] Aspirin (Aspirin Ec 81 Mg Tab) 81 mg PO QDAY [facility] Dextrose (Dextrose 50% In Water (25gm) 50 Ml Syringe) 50 ml IV Q30MIN PRN; Protocol PRN Reason: Hypoglycemia Famotidine (Famotidine 20 Mg/2 Ml Inj) 20 mg IV BID [facility] Heparin Sodium (Porcine) (Heparin 5,000 Unit/1 Ml Vial) 5,000 unit SUB-Q Q8HR [facility] Hydralazine HCl (Hydralazine 20 Mg/1 Ml Inj) 10 mg IV Q6H PRN PRN Reason: htn Sodium Chloride (Nacl 0.9% 1000 Ml) 1,000 mls @ 100 mls/hr IV DIRECT ABDIRAHMAN Levetiracetam 500 mg/ Dextrose 105 mls @ 400 mls/hr IV Q12HR [facility] Insulin Human Lispro (Insulin Lispro 100 Unit/Ml) 0 unit SUB-Q Q6HR [facility]; Protocol Ondansetron HCl (Ondansetron 4 Mg/2 Ml Inj) 4 mg IV Q8H PRN PRN Reason: Nausea And Vomiting Sodium Chloride (Sodium Chloride 0.9% 10 Ml Flush Syringe) 10 ml IV BID [facility] Sodium Chloride (Sodium Chloride 0.9% 10 Ml Flush Syringe) 10 ml IV PRN PRN PRN Reason: LINE FLUSH Review of Systems Neurological: seizures Past History Past Medical History: CAD, diabetes, hypertension, seizures Medications and Allergies Allergies Allergy/AdvReac Type Severity Reaction Status Date / Time No Known Allergies Allergy Unverified 05/11/20 05:28 Home Medications Medication Instructions Recorded Confirmed Last Taken Type Aspirin EC [Halfprin EC] 81 mg PO QDAY #30 tablet. 05/16/20 Unknown Rx AtorvaSTATin [Lipitor] 40 mg PO QHS #60 tablet 05/16/20 Unknown Rx Citalopram [Celexa] 20 mg PO QDAY #60 tablet 05/16/20 Unknown Rx Metoprolol [Lopressor TAB] 25 mg PO BID #120 tablet 05/16/20 Unknown Rx Valsartan [Diovan] 80 mg PO BID #60 tablet 05/16/20 Unknown Rx amLODIPine 10 mg PO DAILY #60 tablet 05/16/20 Unknown Rx Active Meds: Active Medications Acetaminophen (Acetaminophen 325 Mg Tab) 650 mg PO Q4H PRN PRN Reason: Pain MILD(1-3)/Fever >100.5/SOTOMAYOR Acetaminophen (Acetaminophen 650 Mg Rect Supp) 650 mg IN Q4H PRN PRN Reason: Pain, Mild (1-3) Last Admin: 02/25/21 23:25 Dose: 650 mg Documented by: Albuterol (Albuterol 2.5 Mg/3 Ml Nebu) 2.5 mg IH Q3HRT PRN PRN Reason: Shortness Of Breath Amlodipine Besylate (Amlodipine 10 Mg Tab) 10 mg PO DAILY A[facility] Aspirin (Aspirin Ec 81 Mg Tab) 81 mg PO QDAY [facility] Atorvastatin Calcium (Atorvastatin 40 Mg Tab) 40 mg PO QHS A[facility]AHMAN Citalopram Hydrobromide (Citalopram 20 Mg Tab) 20 mg PO QDAY [facility] Dextrose (Dextrose 50% In Water (25gm) 50 Ml Syringe) 50 ml IV Q30MIN PRN; Protocol PRN Reason: Hypoglycemia Famotidine (Famotidine 20 Mg/2 Ml Inj) 20 mg IV BID [facility] Heparin Sodium (Porcine) (Heparin 5,000 Unit/1 Ml Vial) 5,000 unit SUB-Q Q8HR ABDIRAHMAN Last Admin: 02/26/21 06:39 Dose: 5,000 unit Documented by: Hydralazine HCl (Hydralazine 20 Mg/1 Ml Inj) 10 mg IV Q6H PRN PRN Reason: htn Sodium Chloride (Nacl 0.9% 1000 Ml) 1,000 mls @ 100 mls/hr IV DIRECT ABDIRAHMAN Last Admin: 02/26/21 01:25 Dose: 100 mls/hr Documented by: Levetiracetam 500 mg/ Dextrose 105 mls @ 400 mls/hr IV Q12HR ABDIRAHMAN Last Admin: 02/25/21 23:33 Dose: 400 mls/hr Documented by: Insulin Human Lispro (Insulin Lispro 100 Unit/Ml) 0 unit SUB-Q Q6HR [facility]; Protocol Last Admin: 02/26/21 06:24 Dose: Not Given Documented by: Metoprolol Tartrate (Metoprolol Tartrate 25 Mg Tab) 25 mg PO BID ABDIRAHMAN Ondansetron HCl (Ondansetron 4 Mg/2 Ml Inj) 4 mg IV Q8H PRN PRN Reason: Nausea And Vomiting Sodium Chloride (Sodium Chloride 0.9% 10 Ml Flush Syringe) 10 ml IV BID [facility] Sodium Chloride (Sodium Chloride 0.9% 10 Ml Flush Syringe) 10 ml IV PRN PRN PRN Reason: LINE FLUSH Valsartan (Valsartan 40 Mg Tab) 80 mg PO BID [facility] Physical Examination - Vital Signs Vital Signs: Vital Signs Resp Pulse Ox 28 H 88 02/25/21 14:04 02/25/21 14:04 - Constitutional General appearance: comfortable - EENT EENT: Present: PERRL, mucous membranes moist - Respiratory Respiratory: Present: chest non-tender, lungs clear, rhonchi - Cardiovascular Cardiovascular: Present: regular rate, normal S1, normal S2 Extremities: Present: no peripheral edema bilatateraly, no clubbing, cyanosis - Gastrointestinal Gastrointestinal: Present: normoactive bowel sounds - Integumentary Integumentary: Present: normal - Neurologic Cranial nerve examination: PERRL, EOMI, intact, other (tongue is sore on left side ) Speech examination: intact Sensorimotor examination: intact Detailed motor examination: grossly full strength in Results - Laboratory Findings CBC and BMP: 02/25/21 14:29 02/25/21 14:29 Abnormal Lab Findings: Abnormal Labs 02/25/21 02/25/21 02/25/21 14:29 14:29 22:43 WBC 18.5 H Hgb 14.5 H MCV 101 H MCH 35 H MCHC 35 H Seg Neuts % (Manual) 94.0 H Lymphocytes % (Manual) 2.0 L Seg Neutrophils # Man 17.4 H Lymphocytes # (Manual) 0.4 L Sodium 136 L Carbon Dioxide 15 L Glucose 234 H POC Glucose 185 H Assessment and Plan Assessment and Plan VTE prophylaxis?: Chemical Plan of care discussed with patient/family: Yes # Seizure can not be excluded -Hx of spells since last july X3 event pt. told it isnot seizure -Underlying recurrent spells of anxiety and HV --she is on Celexa -pt. bit her tongue during the event -- possibility of frontal lobe epilepsy can not be exclueded - last year ? triggered those event -Admit the patient to the medical telemetry. - Patient is on seizure precaution. - N.p.o. normal saline at the rate of 100 cc/h Keppra 500 mg IV every 12 hours. - Ativan as needed.. - We order EEG. - Patient advised to compliant with the medication -MRI brain with Qd -Neurology follow up maintain Keppra 500 mg bid and celexa to increase to 40 mg daily -consider Psychiatry evaluation # Hypertension -Diovan 80 mg p.o. twice daily amlodipine 10 mg p.o. daily. - Hydralazine 10 mg IV every 6 hours as needed. - -We will monitor the blood pressure closely # Diabetes -We will put the patient on Humalog sliding scale Accu-Chek every 6 hours with moderate dose coverage. - We also consult for diabetic education #CAD (coronary artery disease) -Stable we will put the patient on aspirin 81 mg p.o. daily metoprolol 25 mg p.o. twice daily. - Lipitor 40 mg p.o. nightly #DVT prophylaxis -Heparin 5000 units subcu every 8 hours for DVT prophylaxis. - Pepcid 20 mg p.o. twice daily for GI prophylaxis. - Patient is a full code will follow as needed
--- NOTE | 2021-02-26 09:57 | Progress Note ---
Assessment and Plan Assessment and plan: 65-year-old -[place] female who presents with acute seizures - Patient Problems Seizure Current Visit: Yes Status: Acute Plan to address problem: Patient has a history of having seizures about 1 to 2 months ago Keppra 500 mg every 12 EEG pending Neurology following Postictal state Current Visit: Yes Status: Acute Plan to address problem: Patient has a history of having seizures about 1 to 2 months ago Keppra 500 mg every 12 hours EEG pending Neurology following Mild right upper extremity weakness Patient has a history of TIAs We will obtain MRI of brain without contrast Hypertension Current Visit: Yes Status: Acute Plan to address problem: Valsartan 80 mg p.o. twice daily amlodipine 10 mg p.o. daily. Hydralazine 10 mg IV every 6 hours as needed. Diabetes Current Visit: Yes Status: Acute Plan to address problem: Insulin sliding scale CAD (coronary artery disease) Current Visit: Yes Status: Acute Plan to address problem: Continue aspirin, metoprolol 12 5 mg twice daily and Lipitor. DVT prophylaxis Current Visit: Yes Status: Acute Plan to address problem: Heparin 5000 units subcu every 8 hours for DVT prophylaxis. Pepcid 20 mg p.o. twice daily for GI prophylaxis. CODE STATUS: Full Disposition: Pending MRI of the brain, pending EEG, continue Keppra, neurology recommendations pending. I attempted to call the family, however the phone number is not working. History Interval history: 02/26/2021: Patient seen and examined, lethargic, complains of tongue pain. Hospitalist Physical - Physical exam Narrative exam: General appearance: no acute distress, well-nourished EENT: PERRL, EOM intact, hearing intact, clear oral mucosa, tongue on lateral sides swollen Neck: Present: supple, normal ROM Respiratory: bilateral CTA, negative: rales, rhonchi, wheezing Cardiovascular: Regular rate/rhythm, Normal S1 & S2. No gallop, rub Extremities: no ischemia, No edema, normal temperature, normal color, Full ROM Abdominal: soft, no tenderness, non-distended, normal bowel sounds Integumentary: Present: clear, warm, dry no wounds, no erythema noted Psychiatric: appropriate mood/affect, intact judgment & insight Neurologic: CNII-XII intact, upper right extremity weakness, 4/5 strength, 5/5 upper left extremity strength. 5/5 lower extremity strength bilaterally. No loss of sensation bilaterally - Constitutional Vitals: Temp Pulse Resp BP Pulse Ox 100.8 F H 103 H 23 161/74 95 02/25/21 23:22 02/26/21 00:01 02/26/21 00:01 02/26/21 00:01 02/26/21 08:20 Results - Labs CBC & Chem 7: 02/25/21 14:29 02/25/21 14:29 Labs: Laboratory Last Values WBC 18.5 K/mm3 (4.5-11.0) H 02/25/21 14:29 RBC 4.16 M/mm3 (3.65-5.03) 02/25/21 14:29 Hgb 14.5 gm/dl (10.1-14.3) H 02/25/21 14:29 Hct 41.9 % (30.3-42.9) 02/25/21 14:29 MCV 101 fl (79-97) H 02/25/21 14:29 MCH 35 pg (28-32) H 02/25/21 14:29 MCHC 35 % (30-34) H 02/25/21 14:29 RDW 14.3 % (13.2-15.2) 02/25/21 14:29 Plt Count 301 K/mm3 (140-440) 02/25/21 14:29 Lymph % (Auto) [employer] 02/25/21 14:29 [place] % (Auto) [employer] 02/25/21 14:29 Eos % (Auto) [employer] 02/25/21 14:29 Baso % (Auto) [employer] 02/25/21 14:29 Lymph # (Auto) [employer] 02/25/21 14:29 [place] # (Auto) [employer] 02/25/21 14:29 Eos # (Auto) [employer] 02/25/21 14:29 Baso # (Auto) [employer] 02/25/21 14:29 Add Manual Diff Complete 02/25/21 14:29 Total Counted 100 02/25/21 14:29 Seg Neutrophils % [employer] 02/25/21 14:29 Seg Neuts % (Manual) 94.0 % (40.0-70.0) H 02/25/21 14:29 Lymphocytes % (Manual) 2.0 % (13.4-35.0) L 02/25/21 14:29 Monocytes % (Manual) 4.0 % (0.0-7.3) 02/25/21 14:29 Nucleated RBC % Not Reportable 02/25/21 14:29 Seg Neutrophils # Video Network Engineer 02/25/21 14:29 Seg Neutrophils # Man 17.4 K/mm3 (1.8-7.7) H 02/25/21 14:29 Band Neutrophils # 0.0 K/mm3 02/25/21 14:29 Lymphocytes # (Manual) 0.4 K/mm3 (1.2-5.4) L 02/25/21 14:29 Abs React Lymphs (Man) 0.0 K/mm3 02/25/21 14:29 Monocytes # (Manual) 0.7 K/mm3 (0.0-0.8) 02/25/21 14:29 Eosinophils # (Manual) 0.0 K/mm3 (0.0-0.4) 02/25/21 14:29 Basophils # (Manual) 0.0 K/mm3 (0.0-0.1) 02/25/21 14:29 Metamyelocytes # 0.0 K/mm3 02/25/21 14:29 Myelocytes # 0.0 K/mm3 02/25/21 14:29 Promyelocytes # 0.0 K/mm3 02/25/21 14:29 Blast Cells # 0.0 K/mm3 02/25/21 14:29 WBC Morphology Not Reportable 02/25/21 14:29 WBC Morphology TNR 02/25/21 14:29 Hypersegmented Neuts Not Reportable 02/25/21 14:29 Hyposegmented Neuts Not Reportable 02/25/21 14:29 Hypogranular Neuts Not Reportable 02/25/21 14:29 Smudge Cells Not Reportable 02/25/21 14:29 Toxic Granulation Not Reportable 02/25/21 14:29 Toxic Vacuolation Not Reportable 02/25/21 14:29 Dohle Bodies Not Reportable 02/25/21 14:29 Pelger-Huet Anomaly Not Reportable 02/25/21 14:29 Peter Rods Not Reportable 02/25/21 14:29 Platelet Estimate Consistent w auto 02/25/21 14:29 Clumped Platelets Not Reportable 02/25/21 14:29 Plt Clumps, EDTA Not Reportable 02/25/21 14:29 Large Platelets Not Reportable 02/25/21 14:29 Giant Platelets Not Reportable 02/25/21 14:29 Platelet Satelliting Not Reportable 02/25/21 14:29 Plt Morphology Comment Not Reportable 02/25/21 14:29 RBC Morphology Normal 02/25/21 14:29 Dimorphic RBCs Not Reportable 02/25/21 14:29 Polychromasia Not Reportable 02/25/21 14:29 Hypochromasia Not Reportable 02/25/21 14:29 Poikilocytosis Not Reportable 02/25/21 14:29 Anisocytosis Not Reportable 02/25/21 14:29 Microcytosis Not Reportable 02/25/21 14:29 Macrocytosis Not Reportable 02/25/21 14:29 Spherocytes Not Reportable 02/25/21 14:29 Pappenheimer Bodies Not Reportable 02/25/21 14:29 Sickle Cells Not Reportable 02/25/21 14:29 Target Cells Not Reportable 02/25/21 14:29 Tear Drop Cells Not Reportable 02/25/21 14:29 Ovalocytes Not Reportable 02/25/21 14:29 Helmet Cells Not Reportable 02/25/21 14:29 [place]ib[place] Bodies Not Reportable 02/25/21 14:29 [place] Rings Not Reportable 02/25/21 14:29 Lin Cells Not Reportable 02/25/21 14:29 Bite Cells Not Reportable 02/25/21 14:29 Crenated Cell Not Reportable 02/25/21 14:29 Elliptocytes Not Reportable 02/25/21 14:29 Acanthocytes (Spur) Not Reportable 02/25/21 14:29 Rouleaux Not Reportable 02/25/21 14:29 Hemoglobin C Crystals Not Reportable 02/25/21 14:29 Schistocytes Not Reportable 02/25/21 14:29 Malaria parasites Not Reportable 02/25/21 14:29 Shravan Bodies Not Reportable 02/25/21 14:29 Hem Pathologist Commnt No 02/25/21 14:29 Sodium 136 mmol/L (137-145) L 02/25/21 14:29 Potassium 4.4 mmol/L (3.6-5.0) 02/25/21 14:29 Chloride 99.3 mmol/L (98-107) 02/25/21 14:29 Carbon Dioxide 15 mmol/L (22-30) L 02/25/21 14:29 Anion Gap 26 mmol/L 02/25/21 14:29 BUN 8 mg/dL (7-17) 02/25/21 14:29 Creatinine 0.7 mg/dL (0.6-1.2) 02/25/21 14:29 Estimated GFR > 60 ml/min 02/25/21 14:29 BUN/Creatinine Ratio 11 % 02/25/21 14:29 Glucose 234 mg/dL (65-100) H 02/25/21 14:29 POC Glucose 137 mg/dL (70-105) H 02/26/21 06: Calcium 9.1 mg/dL (8.4-10.2) 02/25/21 14:29 Total Bilirubin 0.80 mg/dL (0.1-1.2) 02/25/21 14:29 Direct Bilirubin < 0.2 mg/dL (0-0.2) 02/25/21 14:29 Indirect Bilirubin 0.6 mg/dL 02/25/21 14:29 AST 34 units/L (5-40) 02/25/21 14:29 ALT 16 units/L (7-56) 02/25/21 14:29 Alkaline Phosphatase 98 units/L (35-129) 02/25/21 14:29 Total Protein 7.6 g/dL (6.3-8.2) 02/25/21 14:29 Albumin 4.5 g/dL (3.9-5) 02/25/21 14:29 Albumin/Globulin Ratio 1.5 % 02/25/21 14:29 Urine Color Straw (Yellow) 02/25/21 Unknown Urine Turbidity Clear (Clear) 02/25/21 Unknown Urine pH 5.0 (5.0-7.0) 02/25/21 Unknown Ur Specific [place] 1.012 (1.003-1.030) 02/25/21 Unknown Urine Protein 100 mg/dl mg/dL (Negative) 02/25/21 Unknown Urine Glucose (UA) >=500 mg/dL (Negative) 02/25/21 Unknown Urine Ketones 20 mg/dL (Negative) 02/25/21 Unknown Urine Blood Mod (Negative) 02/25/21 Unknown Urine Nitrite Neg (Negative) 02/25/21 Unknown Urine Bilirubin Neg (Negative) 02/25/21 Unknown Urine Urobilinogen < 2.0 mg/dL (<2.0) 02/25/21 Unknown Ur Leukocyte Esterase Neg (Negative) 02/25/21 Unknown Urine WBC (Auto) 1.0 /HPF (0.0-6.0) 02/25/21 Unknown Urine RBC (Auto) 2.0 /HPF (0.0-6.0) 02/25/21 Unknown U Epithel Cells (Auto) < 1.0 /HPF (0-13.0) 02/25/21 Unknown Urine Opiates Screen Presumptive negative 02/25/21 Unknown Urine Methadone Screen Presumptive negative 02/25/21 Unknown Ur Barbiturates Screen Presumptive negative 02/25/21 Unknown Ur Phencyclidine Scrn Presumptive negative 02/25/21 Unknown Ur Amphetamines Screen Presumptive negative 02/25/21 Unknown U Benzodiazepines Scrn Presumptive negative 02/25/21 Unknown Urine Cocaine Screen Presumptive negative 02/25/21 Unknown U Marijuana (THC) Screen Presumptive positive 02/25/21 Unknown Drugs of Abuse Note Disclamer 02/25/21 Unknown Plasma/Serum Alcohol < 0.01 % (0-0.07) 02/25/21 14:29 Microbiology: Microbiology 02/25/21 15:56 Peripheral/Venous Blood Culture - Preliminary Culture in Progress 02/25/21 15:56 Peripheral/Venous Blood Culture - Preliminary Culture in Progress Tan/IV: Voiding Method Incontinent Active Medications - Current Medications Current Medications: Generic Name Dose Route Start Last Admin Trade Name Freq PRN Reason Stop Dose Admin Acetaminophen 650 mg 02/25/21 22:04 Acetaminophen 325 Mg Tab PO Q4H PRN Pain MILD(1-3)/Fever >100.5/SOTOMAYOR Acetaminophen 650 mg 02/25/21 23:15 02/25/21 23:25 Acetaminophen 650 Mg Rect Supp [place] 650 mg Q4H PRN Administration Pain, Mild (1-3) Albuterol 2.5 mg 02/25/21 22:04 Albuterol 2.5 Mg/3 Ml Nebu IH Q3HRT PRN Shortness Of Breath Amlodipine Besylate 10 mg 02/26/21 10:00 Amlodipine 10 Mg Tab PO DAILY [facility] Aspirin 81 mg 02/26/21 10:00 Aspirin Ec 81 Mg Tab PO QDAY [facility] Atorvastatin Calcium 40 mg 02/26/21 22:00 Atorvastatin 40 Mg Tab PO QHS [facility] Citalopram Hydrobromide 20 mg 02/26/21 10:00 Citalopram 20 Mg Tab PO QDAY [facility] Dextrose 50 ml 02/25/21 22:04 Dextrose 50% In Water (25gm) 50 Ml Syringe IV Q30MIN PRN Hypoglycemia Protocol Famotidine 20 mg 02/26/21 10:00 Famotidine 20 Mg/2 Ml Inj IV BID [facility] Heparin Sodium (Porcine) 5,000 unit 02/26/21 06:00 02/26/21 06:39 Heparin 5,000 Unit/1 Ml Vial SUB-Q 5,000 unit Q8HR ABDIRAHMAN Administration Hydralazine HCl 10 mg 02/25/21 22:04 Hydralazine 20 Mg/1 Ml Inj IV Q6H PRN htn Sodium Chloride 1,000 mls @ 100 mls/hr 02/25/21 22:15 02/26/21 01:25 Nacl 0.9% 1000 Ml IV 100 mls/hr DIRECT ABDIRAHMAN Administration Levetiracetam 500 mg/ Dextrose 105 mls @ 400 mls/hr 02/25/21 23:00 02/25/21 23:33 IV 400 mls/hr Q12HR ABDIRAHMAN Administration Insulin Human Lispro 0 unit 02/26/21 00:00 02/26/21 06:24 Insulin Lispro 100 Unit/Ml SUB-Q Not Given Q6HR [facility] Protocol Lidocaine HCl 15 ml 02/26/21 09:52 Lidocaine Viscous 2% 15 Ml Oral Liqd PO Q8HR PRN Mouth Pain Lidocaine HCl 15 ml 02/26/21 09:53 Lidocaine Viscous 2% 15 Ml Oral Liqd PO 02/26/21 09:54 ONCE ONE Metoprolol Tartrate 25 mg 02/26/21 10:00 Metoprolol Tartrate 25 Mg Tab PO BID [facility] Ondansetron HCl 4 mg 02/25/21 22:04 Ondansetron 4 Mg/2 Ml Inj IV Q8H PRN Nausea And Vomiting Sodium Chloride 10 ml 02/26/21 10:00 Sodium Chloride 0.9% 10 Ml Flush Syringe IV BID ABDIRAHMAN Sodium Chloride 10 ml 02/25/21 22:04 Sodium Chloride 0.9% 10 Ml Flush Syringe IV PRN PRN LINE FLUSH Valsartan 80 mg 02/26/21 10:00 Valsartan 40 Mg Tab PO BID ABDIRAHMAN
[2021-02-26] MEDS ORDERED: CITALOPRAM 20 MG TAB PO SCH (10:00)
[2021-02-26] MEDS ORDERED: LIDOCAINE VISCOUS 2% 15 ML ORAL LIQD PO ONE (10:30)
[2021-02-26] MEDS: FAMOTIDINE 20 MG/2 ML INJ IV SCH ×2 (13:36→21:40)
[2021-02-26] MEDS: ASPIRIN EC 81 MG TAB PO SCH (13:50)
[2021-02-26] MEDS: VALSARTAN 40 MG TAB PO SCH ×2 (14:01→21:38)
[2021-02-26] MEDS: amLODIPine 10 MG TAB PO SCH (14:01)
[2021-02-26] MEDS: METOPROLOL TARTRATE 25 MG TAB PO SCH ×2 (14:01→21:38)
[2021-02-26] MEDS: levETIRAcetam 500 MG in DEXTROSE 5% IN WATER 100 ML IV SCH ×2 (14:18→22:20)
[2021-02-26] MEDS: CITALOPRAM 20 MG TAB PO SCH (14:48)
[2021-02-26] MEDS: ACETAMINOPHEN 325 MG TAB PO PRN (18:20)
[2021-02-27] MEDS: INSULIN LISPRO 100 UNIT/ML SUB-Q SCH ×3 (06:21→16:30)
[2021-02-27] MEDS: HEPARIN 5,000 UNIT/1 ML VIAL SUB-Q SCH ×3 (06:25→22:23)
[2021-02-27 07:45] LABS: Basophils % (Auto) 0.6 % (0.0-1.8); Eosinophils # (Auto) 0.1 K/mm3 (0.0-0.4); Eosinophils % (Auto) 0.7 % (0.0-4.3); Hematocrit 33.6 % (30.3-42.9); Hemoglobin 11.4 gm/dl (10.1-14.3); Lymphocytes # (Auto) 2.9 K/mm3 (1.2-5.4); Lymphocytes % (Auto) 35.3 % (13.4-35.0); Mean Corpuscular HGB Conc 34 % (30-34); Mean Corpuscular Volume 100 fl (79-97); Monocytes # (Auto) 0.7 K/mm3 (0.0-0.8); Monocytes % (Auto) 9.1 % (0.0-7.3); Platelet Count 229 K/mm3 (140-440); Red Blood Count 3.36 M/mm3 (3.65-5.03); Red Cell Distribution Width 14.1 % (13.2-15.2)
[2021-02-27 07:55] LABS: Blood Urea Nitrogen 13 mg/dL (7-17); Calcium 8.5 mg/dL (8.4-10.2); Hemolysis Index 1
[2021-02-27 08:15] LABS: BUN/Creatinine Ratio 26
[2021-02-27 08:37] LABS: Bilirubin,Urine NEG (Negative); Blood,Urine SM (Negative); Color,Urine Yellow (Yellow); Protein,Urine <15 mg/dL mg/dL (Negative); Urobilinogen,Urine < 2.0 mg/dL (<2.0)
--- NOTE | 2021-02-27 10:09 | Progress Note ---
Assessment and Plan Assessment and plan: 65-year-old -[place] female who presents with acute seizures - Patient Problems Seizure Current Visit: Yes Status: Acute Plan to address problem: Patient has a history of having seizures about 1 to 2 months ago Keppra 500 mg every 12 EEG pending Neurology following Postictal state Current Visit: Yes Status: Acute Plan to address problem: Patient has a history of having seizures about 1 to 2 months ago? Pseudoseizures? Postictal state has resolved Keppra 500 mg every 12 hours EEG pending Neurology following Mild right upper extremity weakness Patient has a history of TIAs We will obtain MRI of brain without contrast Hypertension Current Visit: Yes Status: Acute Plan to address problem: Valsartan 80 mg p.o. twice daily amlodipine 10 mg p.o. daily. Hydralazine 10 mg IV every 6 hours as needed. Diabetes Current Visit: Yes Status: Acute Plan to address problem: Insulin sliding scale CAD (coronary artery disease) Current Visit: Yes Status: Acute Plan to address problem: Continue aspirin, metoprolol 12 5 mg twice daily and Lipitor. DVT prophylaxis Current Visit: Yes Status: Acute Plan to address problem: Heparin 5000 units subcu every 8 hours for DVT prophylaxis. Pepcid 20 mg p.o. twice daily for GI prophylaxis. CODE STATUS: Full Disposition: Pending MRI of the brain, pending EEG, continue Keppra, will attempt to call the family later today. History Interval history: 02/26/2021: Patient seen and examined, lethargic, complains of tongue pain. 02/27/2021: Patient seen and examined, more awake, having a conversation, patient states that she is diabetic, has a past history of seizures but not sure after p gene. At attempted to call the son, could not leave a message. Patient denies any nausea vomiting fevers or chills. Hospitalist Physical - Physical exam Narrative exam: General appearance: no acute distress, well-nourished EENT: PERRL, EOM intact, hearing intact, clear oral mucosa, tongue on lateral sides swollen Neck: Present: supple, normal ROM Respiratory: bilateral CTA, negative: rales, rhonchi, wheezing Cardiovascular: Regular rate/rhythm, Normal S1 & S2. No gallop, rub Extremities: no ischemia, No edema, normal temperature, normal color, Full ROM Abdominal: soft, no tenderness, non-distended, normal bowel sounds Integumentary: Present: clear, warm, dry no wounds, no erythema noted Psychiatric: appropriate mood/affect, intact judgment & insight Neurologic: CNII-XII intact, upper right extremity weakness, 4/5 strength, 5/5 upper left extremity strength. 5/5 lower extremity strength bilaterally. No loss of sensation bilaterally - Constitutional Vitals: Temp Pulse Resp BP Pulse Ox 98.2 F 77 20 162/77 94 02/26/21 21:25 02/26/21 21:38 02/26/21 21:25 02/26/21 21:38 02/26/21 21:25 General appearance: Present: no acute distress, well-nourished Results - Labs CBC & Chem 7: 02/27/21 07:19 02/27/21 07:19 Labs: Laboratory Last Values WBC 8.2 K/mm3 (4.5-11.0) 02/27/21 07:19 RBC 3.36 M/mm3 (3.65-5.03) L 02/27/21 07:19 Hgb 11.4 gm/dl (10.1-14.3) D 02/27/21 07:19 Hct 33.6 % (30.3-42.9) D 02/27/21 07:19 MCV 100 fl (79-97) H 02/27/21 07:19 MCH 34 pg (28-32) H 02/27/21 07:19 MCHC 34 % (30-34) 02/27/21 07:19 RDW 14.1 % (13.2-15.2) 02/27/21 07:19 Plt Count 229 K/mm3 (140-440) 02/27/21 07:19 Lymph % (Auto) 35.3 % (13.4-35.0) H 02/27/21 07:19 [place] % (Auto) 9.1 % (0.0-7.3) H 02/27/21 07:19 Eos % (Auto) 0.7 % (0.0-4.3) 02/27/21 07:19 Baso % (Auto) 0.6 % (0.0-1.8) 02/27/21 07:19 Lymph # (Auto) 2.9 K/mm3 (1.2-5.4) 02/27/21 07:19 [place] # (Auto) 0.7 K/mm3 (0.0-0.8) 02/27/21 07:19 Eos # (Auto) 0.1 K/mm3 (0.0-0.4) 02/27/21 07:19 Baso # (Auto) 0.0 K/mm3 (0.0-0.1) 02/27/21 07:19 Add Manual Diff Complete 02/25/21 14:29 Total Counted 100 02/25/21 14:29 Seg Neutrophils % 54.3 % (40.0-70.0) 02/27/21 07:19 Seg Neuts % (Manual) 94.0 % (40.0-70.0) H 02/25/21 14:29 Lymphocytes % (Manual) 2.0 % (13.4-35.0) L 02/25/21 14:29 Monocytes % (Manual) 4.0 % (0.0-7.3) 02/25/21 14:29 Nucleated RBC % Not Reportable 02/25/21 14:29 Seg Neutrophils # 4.5 K/mm3 (1.8-7.7) 02/27/21 07:19 Seg Neutrophils # Man 17.4 K/mm3 (1.8-7.7) H 02/25/21 14:29 Band Neutrophils # 0.0 K/mm3 02/25/21 14:29 Lymphocytes # (Manual) 0.4 K/mm3 (1.2-5.4) L 02/25/21 14:29 Abs React Lymphs (Man) 0.0 K/mm3 02/25/21 14:29 Monocytes # (Manual) 0.7 K/mm3 (0.0-0.8) 02/25/21 14:29 Eosinophils # (Manual) 0.0 K/mm3 (0.0-0.4) 02/25/21 14:29 Basophils # (Manual) 0.0 K/mm3 (0.0-0.1) 02/25/21 14:29 Metamyelocytes # 0.0 K/mm3 02/25/21 14:29 Myelocytes # 0.0 K/mm3 02/25/21 14:29 Promyelocytes # 0.0 K/mm3 02/25/21 14:29 Blast Cells # 0.0 K/mm3 02/25/21 14:29 WBC Morphology Not Reportable 02/25/21 14:29 WBC Morphology TNR 02/25/21 14:29 Hypersegmented Neuts Not Reportable 02/25/21 14:29 Hyposegmented Neuts Not Reportable 02/25/21 14:29 Hypogranular Neuts Not Reportable 02/25/21 14:29 Smudge Cells Not Reportable 02/25/21 14:29 Toxic Granulation Not Reportable 02/25/21 14:29 Toxic Vacuolation Not Reportable 02/25/21 14:29 Dohle Bodies Not Reportable 02/25/21 14:29 Pelger-Huet Anomaly Not Reportable 02/25/21 14:29 Peter Rods Not Reportable 02/25/21 14:29 Platelet Estimate Consistent w auto 02/25/21 14:29 Clumped Platelets Not Reportable 02/25/21 14:29 Plt Clumps, EDTA Not Reportable 02/25/21 14:29 Large Platelets Not Reportable 02/25/21 14:29 Giant Platelets Not Reportable 02/25/21 14:29 Platelet Satelliting Not Reportable 02/25/21 14:29 Plt Morphology Comment Not Reportable 02/25/21 14:29 RBC Morphology Normal 02/25/21 14:29 Dimorphic RBCs Not Reportable 02/25/21 14:29 Polychromasia Not Reportable 02/25/21 14:29 Hypochromasia Not Reportable 02/25/21 14:29 Poikilocytosis Not Reportable 02/25/21 14:29 Anisocytosis Not Reportable 02/25/21 14:29 Microcytosis Not Reportable 02/25/21 14:29 Macrocytosis Not Reportable 02/25/21 14:29 Spherocytes Not Reportable 02/25/21 14:29 Pappenheimer Bodies Not Reportable 02/25/21 14:29 Sickle Cells Not Reportable 02/25/21 14:29 Target Cells Not Reportable 02/25/21 14:29 Tear Drop Cells Not Reportable 02/25/21 14:29 Ovalocytes Not Reportable 02/25/21 14:29 Helmet Cells Not Reportable 02/25/21 14:29 Torib[place] Bodies Not Reportable 02/25/21 14:29 [place] Rings Not Reportable 02/25/21 14:29 [place] Cells Not Reportable 02/25/21 14:29 Bite Cells Not Reportable 02/25/21 14:29 Crenated Cell Not Reportable 02/25/21 14:29 Elliptocytes Not Reportable 02/25/21 14:29 Acanthocytes (Spur) Not Reportable 02/25/21 14:29 Rouleaux Not Reportable 02/25/21 14:29 Hemoglobin C Crystals Not Reportable 02/25/21 14:29 Schistocytes Not Reportable 02/25/21 14:29 Malaria parasites Not Reportable 02/25/21 14:29 Shravan Bodies Not Reportable 02/25/21 14:29 Hem Pathologist Commnt No 02/25/21 14:29 Sodium 140 mmol/L (137-145) 02/27/21 07:19 Potassium 3.9 mmol/L (3.6-5.0) 02/27/21 07:19 Chloride 107.4 mmol/L (98-107) H 02/27/21 07:19 Carbon Dioxide 20 mmol/L (22-30) L 02/27/21 07:19 Anion Gap 17 mmol/L 02/27/21 07:19 BUN 13 mg/dL (7-17) 02/27/21 07:19 Creatinine 0.5 mg/dL (0.6-1.2) L 02/27/21 07:19 Estimated GFR > 60 ml/min 02/27/21 07:19 BUN/Creatinine Ratio 26 % 02/27/21 07:19 Glucose 101 mg/dL (65-100) H 02/27/21 07:19 POC Glucose 101 mg/dL (70-105) 02/27/21 06:19 Calcium 8.5 mg/dL (8.4-10.2) 02/27/21 07:19 Total Bilirubin 0.80 mg/dL (0.1-1.2) 02/25/21 14:29 Direct Bilirubin < 0.2 mg/dL (0-0.2) 02/25/21 14:29 Indirect Bilirubin 0.6 mg/dL 02/25/21 14:29 AST 34 units/L (5-40) 02/25/21 14:29 ALT 16 units/L (7-56) 02/25/21 14:29 Alkaline Phosphatase 98 units/L (35-129) 02/25/21 14:29 Total Protein 7.6 g/dL (6.3-8.2) 02/25/21 14:29 Albumin 4.5 g/dL (3.9-5) 02/25/21 14:29 Albumin/Globulin Ratio 1.5 % 02/25/21 14:29 Urine Color Yellow (Yellow) 02/27/21 07:21 Urine Turbidity Clear (Clear) 02/27/21 07:21 Urine pH 5.0 (5.0-7.0) 02/27/21 07:21 Ur Specific [place] 1.025 (1.003-1.030) 02/27/21 07:21 Urine Protein <15 mg/dl mg/dL (Negative) 02/27/21 07:21 Urine Glucose (UA) Neg mg/dL (Negative) 02/27/21 07: Urine Ketones 80 mg/dL (Negative) 02/27/21 07:21 Urine Blood Sm (Negative) 02/27/21 07:21 Urine Nitrite Neg (Negative) 02/27/21 07:21 Urine Bilirubin Neg (Negative) 02/27/21 07:21 Urine Urobilinogen < 2.0 mg/dL (<2.0) 02/27/21 07:21 Ur Leukocyte Esterase Neg (Negative) 02/27/21 07:21 Urine WBC (Auto) 3.0 /HPF (0.0-6.0) 02/27/21 07:21 Urine RBC (Auto) 15.0 /HPF (0.0-6.0) 02/27/21 07:21 U Epithel Cells (Auto) 2.0 /HPF (0-13.0) 02/27/21 07:21 Urine Opiates Screen Presumptive negative 02/25/21 Unknown Urine Methadone Screen Presumptive negative 02/25/21 Unknown Ur Barbiturates Screen Presumptive negative 02/25/21 Unknown Ur Phencyclidine Scrn Presumptive negative 02/25/21 Unknown Ur Amphetamines Screen Presumptive negative 02/25/21 Unknown U Benzodiazepines Scrn Presumptive negative 02/25/21 Unknown Urine Cocaine Screen Presumptive negative 02/25/21 Unknown U Marijuana (THC) Screen Presumptive positive 02/25/21 Unknown Drugs of Abuse Note Disclamer 02/25/21 Unknown Plasma/Serum Alcohol < 0.01 % (0-0.07) 02/25/21 14:29 Microbiology: Microbiology 02/25/21 15:56 Peripheral/Venous Blood Culture - Preliminary NO GROWTH AFTER 24 HOURS 02/25/21 15:56 Peripheral/Venous Blood Culture - Preliminary NO GROWTH AFTER 24 HOURS Tan/IV: Voiding Method Incontinent Active Medications - Current Medications Current Medications: Generic Name Dose Route Start Last Admin Trade Name Freq PRN Reason Stop Dose Admin Acetaminophen 650 mg 02/25/21 22:04 02/26/21 18:20 Acetaminophen 325 Mg Tab PO 650 mg Q4H PRN Administration Pain MILD(1-3)/Fever >100.5/SOTOMAYOR Acetaminophen 650 mg 02/25/21 23:15 02/25/21 23:25 Acetaminophen 650 Mg Rect Supp [place] 650 mg Q4H PRN Administration Pain, Mild (1-3) Albuterol 2.5 mg 02/25/21 22:04 Albuterol 2.5 Mg/3 Ml Nebu IH Q3HRT PRN Shortness Of Breath Amlodipine Besylate 10 mg 02/26/21 10:00 02/26/21 14:01 Amlodipine 10 Mg Tab PO Not Given DAILY ABDIRAHMAN Aspirin 81 mg 02/26/21 10:00 02/26/21 13:50 Aspirin Ec 81 Mg Tab PO 81 mg QDAY ABDIRAHMAN Administration Atorvastatin Calcium 40 mg 02/26/21 22:00 02/26/21 21:40 Atorvastatin 40 Mg Tab PO 40 mg QHS ABDIRAHMAN Administration Citalopram Hydrobromide 40 mg 02/26/21 15:00 02/26/21 14:48 Citalopram 20 Mg Tab PO Not Given QDAY ABDIRAHMAN Dextrose 50 ml 02/25/21 22:04 Dextrose 50% In Water (25gm) 50 Ml Syringe IV Q30MIN PRN Hypoglycemia Protocol Famotidine 20 mg 02/26/21 10:00 02/26/21 21:40 Famotidine 20 Mg/2 Ml Inj IV 20 mg BID ABDRIAHMAN Administration Heparin Sodium (Porcine) 5,000 unit 02/26/21 06:00 02/27/21 06:25 Heparin 5,000 Unit/1 Ml Vial SUB-Q 5,000 unit Q8HR ABDIRAHMAN Administration Hydralazine HCl 10 mg 02/25/21 22:04 Hydralazine 20 Mg/1 Ml Inj IV Q6H PRN htn Sodium Chloride 1,000 mls @ 100 mls/hr 02/25/21 22:15 02/27/21 00:13 Nacl 0.9% 1000 Ml IV Infused DIRECT ABDIRAHMAN Infusion Levetiracetam 500 mg/ Dextrose 105 mls @ 400 mls/hr 02/25/21 23:00 02/26/21 23:17 IV Infused Q12HR ABDIRAHMAN Infusion Insulin Human Lispro 0 unit 02/26/21 00:00 02/27/21 06:21 Insulin Lispro 100 Unit/Ml SUB-Q Not Given Q6HR [facility] Protocol Lidocaine HCl 15 ml 02/26/21 18:00 Lidocaine Viscous 2% 15 Ml Oral Liqd PO Q8H PRN Mouth Pain Metoprolol Tartrate 25 mg 02/26/21 10:00 02/26/21 21:38 Metoprolol Tartrate 25 Mg Tab PO 25 mg BID ABDIRAHMAN Administration Ondansetron HCl 4 mg 02/25/21 22:04 Ondansetron 4 Mg/2 Ml Inj IV Q8H PRN Nausea And Vomiting Sodium Chloride 10 ml 02/26/21 10:00 02/26/21 21:48 Sodium Chloride 0.9% 10 Ml Flush Syringe IV 10 ml BID ABDIRAHMAN Administration Sodium Chloride 10 ml 02/25/21 22:04 Sodium Chloride 0.9% 10 Ml Flush Syringe IV PRN PRN LINE FLUSH Valsartan 80 mg 02/26/21 10:00 02/26/21 21:38 Valsartan 40 Mg Tab PO 80 mg BID ABDIRAHMAN Administration
[2021-02-27] MEDS: ASPIRIN EC 81 MG TAB PO SCH (10:33)
[2021-02-27] MEDS: CITALOPRAM 20 MG TAB PO SCH ×2 (10:37→10:39)
[2021-02-27] MEDS: levETIRAcetam 500 MG in DEXTROSE 5% IN WATER 100 ML IV SCH (10:38)
[2021-02-27] MEDS: METOPROLOL TARTRATE 25 MG TAB PO SCH ×2 (10:39→22:46)
[2021-02-27] MEDS: amLODIPine 10 MG TAB PO SCH (10:39)
[2021-02-27] MEDS: VALSARTAN 40 MG TAB PO SCH ×2 (10:40→22:44)
[2021-02-27] MEDS: FAMOTIDINE 20 MG/2 ML INJ IV SCH ×2 (10:40→22:24)
[2021-02-27] MEDS: levETIRAcetam 500 MG TAB PO SCH ×2 (12:40→22:23)
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
--- NOTE | 2021-02-27 13:10 | Magnetic Resonance Report ---
. MR brain wo/w con INDICATION / CLINICAL INFORMATION: 65 years Female; Seizure disorder, IDALIA. ARM NUMBNESS. TECHNIQUE: Multiplanar, multisequence MR images of the brain were obtained. Motion artifact is present. COMPARISON: CT-02/25/2021 FINDINGS: BRAIN / INTRACRANIAL CONTENTS: No acute hemorrhage, mass effect, midline shift, hydrocephalus, or acu te, large territorial infarct. No chronic infarct or atrophy. Mild, nonspecific white matter disease noted. Hippocampal regions are grossly normal in appearance. Normal venous anomaly seen in the posterior frontal lobe on the right, which should be of no clinical significance. CRANIOCERVICAL JUNCTION: No significant abnormality. VASCULAR FLOW-VOIDS: No significant abnormality. ORBITS: No significant abnormality of visualized orbits. SINUSES / MASTOIDS: No significant abnormality in the visualized paranasal sinuses or mastoid air erich ls. ADDITIONAL FINDINGS: None. IMPRESSION: 1. No focal mass, hemorrhage, hydrocephalus, or acute ischemia. Signer Name: Dustin Lerma MD, III Signed: 02/27/2021 1:06 PM Workstation Name: [id number]
[2021-02-27] MEDS: hydrALAZINE 20 MG/1 ML INJ IV PRN (17:27)
[2021-02-27] MEDS: ACETAMINOPHEN 325 MG TAB PO PRN (17:30)
[2021-02-27] MEDS ORDERED: PANTOPRAZOLE 40 MG TAB PO ONE (18:35)
[2021-02-27] MEDS ORDERED: diphenhydrAMINE 25 MG CAP PO ONE (20:00)
[2021-02-27] MEDS: LIDOCAINE VISCOUS 2% 15 ML ORAL LIQD PO PRN (20:28)
[2021-02-28] MEDS: HEPARIN 5,000 UNIT/1 ML VIAL SUB-Q SCH ×3 (06:36→22:30)
[2021-02-28] MEDS: INSULIN LISPRO 100 UNIT/ML SUB-Q SCH ×4 (06:36→17:21)
[2021-02-28] MEDS: FAMOTIDINE 20 MG/2 ML INJ IV SCH ×2 (10:02→22:31)
[2021-02-28] MEDS: CITALOPRAM 20 MG TAB PO SCH (10:02)
[2021-02-28] MEDS: ASPIRIN EC 81 MG TAB PO SCH (10:03)
[2021-02-28] MEDS: amLODIPine 10 MG TAB PO SCH (10:03)
[2021-02-28] MEDS: levETIRAcetam 500 MG TAB PO SCH ×2 (10:03→22:30)
[2021-02-28] MEDS: VALSARTAN 40 MG TAB PO SCH ×2 (10:03→22:38)
[2021-02-28] MEDS: METOPROLOL TARTRATE 25 MG TAB PO SCH ×2 (10:03→22:31)
[2021-02-28] MEDS: LIDOCAINE VISCOUS 2% 15 ML ORAL LIQD PO PRN (13:50)
--- NOTE | 2021-02-28 14:53 | Progress Note ---
Assessment and Plan 65-year-old -[place] female who presents with acute seizures/? Pseudoseizure, hallucination and now complaining of chest pain -- Seizure disorder versus convulsive syncope Presenting complaint and also Noted to have seizure-like activity during her prior admission to this hospital in the ER Doubt if patient is having pseudoseizure due to severe anxiety and panic attack Continue Keppra 500 mg every 12h EEG pending Neurology following --Postictal state/acute metabolic encephalopathy resolved Continue Keppra 500 mg every 12 hours EEG pending Neurology following Atypical chest pain -Patient had a recent stress test 8 months ago which was essentially normal -Complaining of chest pain today, EKG troponin ordered -Continue aspirin beta-cristina and NTG as needed Mild right upper extremity weakness/physical debility Patient has a history of TIAs MRI of brain without contrast showed no acute infarct --Hypertension Metoprolol 25 mg twice daily Valsartan 80 mg p.o. twice daily amlodipine 10 mg p.o. daily. Hydralazine 10 mg IV every 6 hours as needed. --Diabetes Insulin sliding scale, A1c 7.1, continue consistent carb diet --CAD (coronary artery disease) Continue aspirin, metoprolol 25 mg twice daily and Lipitor. --Bipolar disorder, patient meets criteria for inpatient psych placement but family refusing Psych following, will follow recommendation --DVT prophylaxis Heparin 5000 units subcu every 8 hours for DVT prophylaxis. Pepcid 20 mg p.o. twice daily for GI prophylaxis. CODE STATUS: Full Disposition: pending EEG, continue Keppra, follow psychiatry recommendation Daily clinical course: 02/26/2021: Patient seen and examined, lethargic, complains of tongue pain. 02/27/2021: Patient seen and examined, more awake, having a conversation, patient states that she is diabetic, has a past history of seizures but not sure after pseudoseizures. At attempted to call the son, could not leave a message. Patient denies any nausea vomiting fevers or chills. 02/28/21; EEG pending, wait for final neurology recommendation. Also pending psychiatric recommendations. Patient complains of chest pain today. Ordered stat EKG and troponin. We will also consult cardiology. Patient did have a negative stress test 8 months ago. Subjective Date of service: 02/28/21 Interval history: Patient seen and examined. Medical records and medication list reviewed. No acute event overnight noted by the RN. Patient complains of midsternal chest pain . Patient is tolerating diet. Discussed plan of care at bedside with patient. Objective - Exam Narrative Exam: General appearance: no acute distress, well-nourished EENT: PERRL, EOM intact, hearing intact, clear oral mucosa, tongue on lateral sides swollen Neck: Present: supple, normal ROM Respiratory: bilateral CTA, negative: rales, rhonchi, wheezing Cardiovascular: Regular rate/rhythm, Normal S1 & S2. No gallop, rub Extremities: no ischemia, No edema, normal temperature, normal color, Full ROM Abdominal: soft, no tenderness, non-distended, normal bowel sounds Integumentary: Present: clear, warm, dry no wounds, no erythema noted Psychiatric: appropriate mood/affect, intact judgment & insight Neurologic: CNII-XII intact, upper right extremity weakness, 4/5 strength, 5/5 upper left extremity strength. 5/5 lower extremity strength bilaterally. No loss of sensation bilaterally - Constitutional Vitals: Vital Signs - 12hr 02/28/21 02/28/21 04:47 10:03 Temperature 98.8 F Pulse Rate 71 60 Respiratory 18 Rate Blood Pressure 146/60 159/59 O2 Sat by Pulse 98 Oximetry - Labs CBC & Chem 7: 02/27/21 07:19 02/27/21 07:19 Labs: Abnormal lab results 02/27/21 02/27/21 02/28/21 Range/Units 16:21 22:25 06:30 POC Glucose 152 H 190 H 108 H (70-105) mg/dL 02/28/21 Range/Units 07:21 POC Glucose 113 H (70-105) mg/dL
--- NOTE | 2021-02-28 15:26 | Consultation ---
History of Present Illness Consult date: 02/28/21 Reason for Consult: Seizure Chief complaint: Seizure History of present illness: 65 yo female with Past History Past Medical History: CAD, diabetes, hypertension, seizures Medications and Allergies Allergies Allergy/AdvReac Type Severity Reaction Status Date / Time No Known Allergies Allergy Unverified 05/11/20 05:28 Home Medications Medication Instructions Recorded Confirmed Last Taken Type Aspirin EC [Halfprin EC] 81 mg PO QDAY #30 tablet. 05/16/20 02/27/21 02/26/21 22:00 Rx AtorvaSTATin [Lipitor] 40 mg PO QHS #60 tablet 05/16/20 02/27/21 02/26/21 22:00 Rx Citalopram [Celexa] 20 mg PO QDAY #60 tablet 05/16/20 02/27/21 02/26/21 22:00 Rx Metoprolol [Lopressor TAB] 25 mg PO BID #120 tablet 05/16/20 02/27/21 02/26/21 22:00 Rx Valsartan [Diovan] 80 mg PO BID #60 tablet 05/16/20 02/27/21 02/26/21 Rx amLODIPine 10 mg PO DAILY #60 tablet 05/16/20 02/27/21 02/26/21 22:00 Rx Active Meds: Active Medications Acetaminophen (Acetaminophen 325 Mg Tab) 650 mg PO Q4H PRN PRN Reason: Pain MILD(1-3)/Fever >100.5/[facility] Last Admin: 02/27/21 17:30 Dose: 650 mg Documented by: Acetaminophen (Acetaminophen 650 Mg Rect Supp) 650 mg [place] Q4H PRN PRN Reason: Pain, Mild (1-3) Last Admin: 02/25/21 23:25 Dose: 650 mg Documented by: Albuterol (Albuterol 2.5 Mg/3 Ml Nebu) 2.5 mg IH Q3HRT PRN PRN Reason: Shortness Of Breath Amlodipine Besylate (Amlodipine 10 Mg Tab) 10 mg PO DAILY [facility] Last Admin: 02/28/21 10:03 Dose: 10 mg Documented by: Aspirin (Aspirin Ec 81 Mg Tab) 81 mg PO QDAY [facility] Last Admin: 02/28/21 10:03 Dose: 81 mg Documented by: Atorvastatin Calcium (Atorvastatin 40 Mg Tab) 40 mg PO QHS [facility] Last Admin: 02/27/21 22:24 Dose: 40 mg Documented by: Citalopram Hydrobromide (Citalopram 20 Mg Tab) 40 mg PO QDAY [facility] Last Admin: 02/28/21 10:02 Dose: 40 mg Documented by: Dextrose (Dextrose 50% In Water (25gm) 50 Ml Syringe) 50 ml IV Q30MIN PRN; Protocol PRN Reason: Hypoglycemia Famotidine (Famotidine 20 Mg/2 Ml Inj) 20 mg IV BID [facility] Last Admin: 02/28/21 10:02 Dose: 20 mg Documented by: Heparin Sodium (Porcine) (Heparin 5,000 Unit/1 Ml Vial) 5,000 unit SUB-Q Q8HR [facility] Last Admin: 02/28/21 13:49 Dose: 5,000 unit Documented by: Hydralazine HCl (Hydralazine 20 Mg/1 Ml Inj) 10 mg IV Q6H PRN PRN Reason: htn Last Admin: 02/27/21 17:27 Dose: 10 mg Documented by: Insulin Human Lispro (Insulin Lispro 100 Unit/Ml) 0 unit SUB-Q Q6HR [facility]; Protocol Last Admin: 02/28/21 11:51 Dose: Not Given Documented by: Levetiracetam (Levetiracetam 500 Mg Tab) 500 mg PO BID [facility] Last Admin: 02/28/21 10:03 Dose: 500 mg Documented by: Lidocaine HCl (Lidocaine Viscous 2% 15 Ml Oral Liqd) 15 ml PO Q8H PRN PRN Reason: Mouth Pain Last Admin: 02/28/21 13:50 Dose: 15 ml Documented by: Metoprolol Tartrate (Metoprolol Tartrate 25 Mg Tab) 25 mg PO BID [facility] Last Admin: 02/28/21 10:03 Dose: 25 mg Documented by: Ondansetron HCl (Ondansetron 4 Mg/2 Ml Inj) 4 mg IV Q8H PRN PRN Reason: Nausea And Vomiting Last Admin: 02/27/21 13:58 Dose: 4 mg Documented by: Sodium Chloride (Sodium Chloride 0.9% 10 Ml Flush Syringe) 10 ml IV BID [facility] Last Admin: 02/28/21 10:03 Dose: 10 ml Documented by: Sodium Chloride (Sodium Chloride 0.9% 10 Ml Flush Syringe) 10 ml IV PRN PRN PRN Reason: LINE FLUSH Valsartan (Valsartan 40 Mg Tab) 80 mg PO BID [facility] Last Admin: 02/28/21 10:03 Dose: 80 mg Documented by: Physical Examination - Vital Signs Vital Signs: Vital Signs Resp Pulse Ox 28 H 88 02/25/21 14:04 02/25/21 14:04 Results - Laboratory Findings CBC and BMP: 02/27/21 07:19 02/27/21 07:19 Abnormal Lab Findings: Abnormal Labs 02/25/21 02/25/21 02/25/21 14:29 14:29 22:43 WBC 18.5 H RBC Hgb 14.5 H MCV 101 H MCH 35 H MCHC 35 H Lymph % (Auto) [place] % (Auto) Seg Neuts % (Manual) 94.0 H Lymphocytes % (Manual) 2.0 L Seg Neutrophils # Man 17.4 H Lymphocytes # (Manual) 0.4 L Sodium 136 L Chloride Carbon Dioxide 15 L Creatinine Glucose 234 H POC Glucose 185 H Hemoglobin A1c 02/26/21 02/26/21 02/26/21 06:23 14:18 17:54 WBC RBC Hgb MCV MCH MCHC Lymph % (Auto) [place] % (Auto) Seg Neuts % (Manual) Lymphocytes % (Manual) Seg Neutrophils # Man Lymphocytes # (Manual) Sodium Chloride Carbon Dioxide Creatinine Glucose POC Glucose 137 H 127 H 124 H Hemoglobin A1c 02/27/21 02/27/21 02/27/21 07:19 07:19 09:49 WBC RBC 3.36 L Hgb MCV 100 H MCH 34 H MCHC Lymph % (Auto) 35.3 H [place] % (Auto) 9.1 H Seg Neuts % (Manual) Lymphocytes % (Manual) Seg Neutrophils # Man Lymphocytes # (Manual) Sodium Chloride 107.4 H Carbon Dioxide 20 L Creatinine 0.5 L Glucose 101 H POC Glucose Hemoglobin A1c 7.0 H 02/27/21 02/27/21 02/28/21 16:21 22:25 06:30 WBC RBC Hgb MCV MCH MCHC Lymph % (Auto) [place] % (Auto) Seg Neuts % (Manual) Lymphocytes % (Manual) Seg Neutrophils # Man Lymphocytes # (Manual) Sodium Chloride Carbon Dioxide Creatinine Glucose POC Glucose 152 H 190 H 108 H Hemoglobin A1c 02/28/21 02/28/21 07:21 11:01 WBC RBC Hgb MCV MCH MCHC Lymph % (Auto) [place] % (Auto) Seg Neuts % (Manual) Lymphocytes % (Manual) Seg Neutrophils # Man Lymphocytes # (Manual) Sodium Chloride Carbon Dioxide Creatinine Glucose POC Glucose 113 H 123 H Hemoglobin A1c
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
[2021-02-28] MEDS: ACETAMINOPHEN 325 MG TAB PO PRN (22:29)
[2021-03-01] MEDS: INSULIN LISPRO 100 UNIT/ML SUB-Q SCH ×4 (00:05→18:00)
[2021-03-01] MEDS: HEPARIN 5,000 UNIT/1 ML VIAL SUB-Q SCH ×2 (06:14→14:17)
[2021-03-01] MEDS: hydrALAZINE 20 MG/1 ML INJ IV PRN (06:17)
[2021-03-01] MEDS ORDERED: FAMOTIDINE 20 MG TAB PO SCH (10:00)
[2021-03-01] MEDS: hydrALAZINE 25 MG TAB PO SCH ×2 (10:34→14:17)
[2021-03-01] MEDS: ASPIRIN EC 81 MG TAB PO SCH (10:34)
[2021-03-01] MEDS: METOPROLOL TARTRATE 25 MG TAB PO SCH (10:35)
[2021-03-01] MEDS: CITALOPRAM 20 MG TAB PO SCH (10:35)
[2021-03-01] MEDS: levETIRAcetam 500 MG TAB PO SCH (10:35)
[2021-03-01] MEDS: amLODIPine 10 MG TAB PO SCH (10:35)
--- NOTE | 2021-03-01 10:47 | Consultation ---
History of Present Illness Consult date: 03/01/21 Consult reason: chest pain History of present illness: This is a 65-year old F whom is admitted with postictal seizure. Neurology workup is in progress. A cardiology consultation has been requested for atypical chest pain. Chest pain is poorly described and non-exertional. Denies unusual shortness of breath and denies palpitations. Troponin measurements were normal and her ECG is benign. No acute ischemic changes. 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 Most recent cardiac workup was done at this hospital 8 months ago. A dobutamine thallium stress test showed normal perfusion study. Normal left ventricular systolic function by echocardiogram. Co- morbidities includes Hypertension, Diabetes, and tobacco abuse. Past History Past Medical History: CAD, diabetes, hypertension, seizures Social history: smoking Medications and Allergies Allergies Allergy/AdvReac Type Severity Reaction Status Date / Time No Known Allergies Allergy Unverified 05/11/20 05:28 Home Medications Medication Instructions Recorded Confirmed Last Taken Type Aspirin EC [Halfprin EC] 81 mg PO QDAY #30 tablet. 05/16/20 02/27/21 02/26/21 22:00 Rx AtorvaSTATin [Lipitor] 40 mg PO QHS #60 tablet 05/16/20 02/27/21 02/26/21 22:00 Rx Citalopram [Celexa] 20 mg PO QDAY #60 tablet 05/16/20 02/27/21 02/26/21 22:00 Rx Metoprolol [Lopressor TAB] 25 mg PO BID #120 tablet 05/16/20 02/27/21 02/26/21 22:00 Rx Valsartan [Diovan] 80 mg PO BID #60 tablet 05/16/20 02/27/21 02/26/21 Rx amLODIPine 10 mg PO DAILY #60 tablet 05/16/20 02/27/21 02/26/21 22:00 Rx Active Meds: Active Medications Acetaminophen (Acetaminophen 325 Mg Tab) 650 mg PO Q4H PRN PRN Reason: Pain MILD(1-3)/Fever >100.5/SOTOMAYOR Last Admin: 02/28/21 22:29 Dose: 650 mg Documented by: Albuterol (Albuterol 2.5 Mg/3 Ml Nebu) 2.5 mg IH Q3HRT PRN PRN Reason: Shortness Of Breath Amlodipine Besylate (Amlodipine 10 Mg Tab) 10 mg PO DAILY [facility] Last Admin: 03/01/21 10:35 Dose: 10 mg Documented by: Aspirin (Aspirin Ec 81 Mg Tab) 81 mg PO QDAY [facility] Last Admin: 03/01/21 10:34 Dose: 81 mg Documented by: Atorvastatin Calcium (Atorvastatin 40 Mg Tab) 40 mg PO QHS [facility] Last Admin: 02/28/21 22:30 Dose: 40 mg Documented by: Citalopram Hydrobromide (Citalopram 20 Mg Tab) 40 mg PO QDAY [facility] Last Admin: 03/01/21 10:35 Dose: 40 mg Documented by: Dextrose (Dextrose 50% In Water (25gm) 50 Ml Syringe) 50 ml IV Q30MIN PRN; Protocol PRN Reason: Hypoglycemia Famotidine (Famotidine 20 Mg Tab) 20 mg PO BID [facility] Last Admin: 03/01/21 10:35 Dose: 20 mg Documented by: Heparin Sodium (Porcine) (Heparin 5,000 Unit/1 Ml Vial) 5,000 unit SUB-Q Q8HR [facility] Last Admin: 03/01/21 06:14 Dose: 5,000 unit Documented by: Hydralazine HCl (Hydralazine 20 Mg/1 Ml Inj) 10 mg IV Q6H PRN PRN Reason: htn Last Admin: 03/01/21 06:17 Dose: 10 mg Documented by: Hydralazine HCl (Hydralazine 25 Mg Tab) 50 mg PO Q8HR [facility] Last Admin: 03/01/21 10:34 Dose: 50 mg Documented by: Insulin Human Lispro (Insulin Lispro 100 Unit/Ml) 0 unit SUB-Q Q6HR [facility]; Protocol Last Admin: 03/01/21 06:50 Dose: Not Given Documented by: Levetiracetam (Levetiracetam 500 Mg Tab) 500 mg PO BID [facility] Last Admin: 03/01/21 10:35 Dose: 500 mg Documented by: Lidocaine HCl (Lidocaine Viscous 2% 15 Ml Oral Liqd) 15 ml PO Q8H PRN PRN Reason: Mouth Pain Last Admin: 02/28/21 13:50 Dose: 15 ml Documented by: Metoprolol Tartrate (Metoprolol Tartrate 25 Mg Tab) 25 mg PO BID [facility] Last Admin: 03/01/21 10:35 Dose: 25 mg Documented by: Ondansetron HCl (Ondansetron 4 Mg/2 Ml Inj) 4 mg IV Q8H PRN PRN Reason: Nausea And Vomiting Last Admin: 02/27/21 13:58 Dose: 4 mg Documented by: Sodium Chloride (Sodium Chloride 0.9% 10 Ml Flush Syringe) 10 ml IV BID [facility] Last Admin: 03/01/21 10:35 Dose: 10 ml Documented by: Sodium Chloride (Sodium Chloride 0.9% 10 Ml Flush Syringe) 10 ml IV PRN PRN PRN Reason: LINE FLUSH Valsartan (Valsartan 40 Mg Tab) 80 mg PO BID [facility] Last Admin: 02/28/21 22:38 Dose: 80 mg Documented by: Review of Systems Cardiovascular: chest pain, shortness of breath, no palpitations, no edema Physical Examination Vital Signs Resp Pulse Ox 28 H 88 02/25/21 14:04 02/25/21 14:04 General appearance: no acute distress HEENT: Positive: PERRL Neck: Positive: trachea midline Cardiac: Positive: Reg Rate and Rhythm Lungs: Positive: Normal Breath Sounds Neuro: Positive: Grossly Intact Extremities: Absent: edema Results 02/27/21 07:19 02/27/21 07:19 Assessment and Plan Atypical chest pain 05/2020 dobutamine thallium stress test showed normal perfusion study. 05/2020 echo showed normal left ventricular systolic function. Postictal state seizure -reason for admission as per Neurology Hx of coronary artery disease Hypertension Diabetes Continued tobacco abuse Continue medical therapy for coronary artery disease. Otherwise, conservative cardiac management.
[2021-03-01] MEDS: VALSARTAN 40 MG TAB PO SCH (14:17)
--- NOTE | 2021-03-01 14:56 | Discharge Summary ---
Providers - Providers Date of Admission: 02/25/21 23:20 Date of discharge: 03/01/21 Attending physician: KASHIF MOORE 02/25/21 22:04 Consult to Dietitian/Nutrition [CONS] Routine Physician Instructions: Reason For Exam: Reason for Consult: Diet education 02/25/21 22:06 Consult to Physician [CONS] Routine Comment: Consulting Provider: KEVIN WILSON Physician Instructions: Reason For Exam: Seizure 02/27/21 07:18 Consult to Mental Health [CONS] Routine Reason For Exam: depression/conversion disorder? 02/27/21 12:08 Physical Therapy Evaluation and Treat [CONS] Routine Comment: Reason For Exam: weakness 02/28/21 11:56 Consult to Physician [CONS] Routine Comment: Consulting Provider: MATEUS PENA Physician Instructions: Reason For Exam: seizure 02/28/21 13:18 Consult to Physician [CONS] Routine Comment: Consulting Provider: LASHELL ALLAN Physician Instructions: Reason For Exam: chest pain Primary care physician: LEANNE FOWLER Hospitalization Condition: Good Hospital course: 65-year-old -[place] female who presents with acute seizures/? Pseudoseizure, hallucination and then complaining of chest pain. Daily clinical course: 02/26/2021: Patient seen and examined, lethargic, complains of tongue pain. 02/27/2021: Patient seen and examined, more awake, having a conversation, patient states that she is diabetic, has a past history of seizures but not sure about pseudoseizures. At attempted to call the son, could not leave a message. Patient denies any nausea vomiting fevers or chills. 02/28/21; EEG pending, wait for final neurology recommendation. Psychiatry recommended inpatient psych placement but family refused. Patient complains of chest pain today. Ordered stat EKG and troponin. We will also consult cardiology. Patient did have a negative stress test 8 months ago. 03/01/21; cardiology recommended medical management. Reconsulted neurology. Patient will continue with AED for now, recommended to follow-up outpatient with neurology in 1 to 2 weeks with outpatient EEG. Per neurology: pt has already been initiated on Keppra 500 mg bid per Neurology evaluation on 02/26/21; MRI Brain w/ wo contrast is unremarkable; EEG results pending (EEG was done while pt is on Keppra); hyperventialtion is an ultra rare manifestation of seizure and more common with anxiety/panic attacks w/ hyperventilation associated syncope or convulsive syncope being more common. Patient was explained discharge planning management and she was agreeable. Patient will be discharged home with family support with outpatient follow-up. Disposition: DC-01 TO HOME OR SELFCARE Final Discharge Diagnosis (Prints w/discharge instructions): --Seizure disorder versus convulsive syncope. Continue antiseizure medicine for now, further follow-up as outpatient. MRI brain negative for any acute findings. --P ostictal state/acute metabolic encephalopathy. --Atypical chest pain. --Mild right upper extremity weakness/physical debility, cleared by PT for discharge. --Hypertension, moderately controlled. --Diabetes mellitus type 2, A1c 7.1. --Coronary artery disease,. --Bipolar disorder, patient met inpatient psych criteria but family refused, will follow with outpatient Time spent for discharge: 34 minutes Core Measure Documentation - Palliative Care Palliative Care/ Comfort Measures: Not Applicable - Core Measures Any of the following diagnoses?: none Exam - Physical Exam Narrative exam: General appearance: no acute distress, well-nourished EENT: PERRL, EOM intact, hearing intact, clear oral mucosa, tongue on lateral sides swollen Neck: Present: supple, normal ROM Respiratory: bilateral CTA, negative: rales, rhonchi, wheezing Cardiovascular: Regular rate/rhythm, Normal S1 & S2. No gallop, rub Extremities: no ischemia, No edema, normal temperature, normal color, Full ROM Abdominal: soft, no tenderness, non-distended, normal bowel sounds Integumentary: Present: clear, warm, dry no wounds, no erythema noted Psychiatric: appropriate mood/affect, intact judgment & insight Neurologic: CNII-XII intact, upper right extremity weakness, 4/5 strength, 5/5 upper left extremity strength. 5/5 lower extremity strength bilaterally. No loss of sensation bilaterally - Constitutional Vitals: Temp Pulse Resp BP Pulse Ox 98.5 F 65 22 141/56 98 03/01/21 11:25 03/01/21 11:25 03/01/21 11:25 03/01/21 11:25 03/01/21 11:25 Plan Activity: advance as tolerated Weight Bearing Status: Weight Bear as Tolerated Diet: diabetic Additional Instructions: Please continue Keppra 500 twice daily for now, no driving until cleared by PCP. Follow-up with neurology in 1 week about continuation of antiseizure medicine. Also follow-up with psychiatry outpatient in 1 week for bipolar disorder. Please be compliant with the medications and outpatient follow-up. Follow up with: LEANNE FOWLER MD [Primary Care Provider] - 3-5 Days Prescriptions: hydrALAZINE [Apresoline TAB] 50 mg PO Q8HR #90 tablet levETIRAcetam [Keppra TAB] 500 mg PO BID #60 tablet
[2021-03-01 18:14] VITALS: BP 154/73
--- NOTE | 2021-03-02 14:07 | Electrocardiograph Report ---
[facility] Test Date: 2021-03-01 Test Time: 08:00:15 Pat Name: KRANTHI VELASCO Department: Room: A374 1 Gender: F Driver Engineer: VERONICA : 1955 Requested By: RICKY QUAN Order Number: [id number] Reading MD: Armen Franco Measurements Intervals [place] Rate: 58 P: 69 [place]: 169 QRS: 57 QRSD: 101 T: 75 QT: 438 QTc: 430 Interpretive Statements Sinus rhythm No previous ECG available for comparison Electronically Signed On 03-02-2021 14:07:27 EDT by Armen Franco
== END 2021-03-01 20:00 | disposition home or self-care (01) ==
LOC: ED 13:58 → 3A 23:20
PROVIDERS: ADMIT Hospitalist; ATTEND Internal Medicine
DX: G40.419 Other generalized epilepsy and epileptic syndromes, intractable, without status epilepticus (principal); I10 Essential (primary) hypertension; I25.10 Atherosclerotic heart disease of native coronary artery without angina pectoris; E11.9 Type 2 diabetes mellitus without complications; E78.00 Pure hypercholesterolemia, unspecified; H40.9 Unspecified glaucoma; F41.9 Anxiety disorder, unspecified; M62.81 Muscle weakness (generalized); F31.9 Bipolar disorder, unspecified; Z79.82 Long term (current) use of aspirin; Z79.4 Long term (current) use of insulin; Z95.1 Presence of aortocoronary bypass graft
CPT/HCPCS: 36415; 70450; 70553; 71045; 80048; 80076; 80307; 81001; 82962; 83036; 84484; 85025; 87040; 87086; 93005; 95819; 96361; 96365; 96366; 96367; 96372; 96375; 96376; 97161; 97535; 99285; A9270; A9575; G0378; J0360; J0696; J1644; J1953; J2060; J2405; J3486; J7030; 80320; 85007; G0480; J1815

== ENCOUNTER 2021-05-25 08:40 | Inpatient (IN) | payer MEDICARE ==
[~2021-05-25 08:40] MED LIST: CALCIUM CHLORIDE 1,000 MG/10 ML SYRINGE IV ONE; EPINEPHrine 1 MG/10 ML SYRINGE ONE
[2021-05-25] MEDS ORDERED: NORepinephrine/NS 8 MG-250 ML 8 MG/250 ML INFUS..BTL IV ONE (08:53)
[2021-05-25] MEDS ORDERED: SODIUM CHLORIDE 0.9% 1000 ML 1,000 ML ONE (08:55)
--- NOTE | 2021-05-25 09:03 | Emergency Department Report ---
ED CPR HPI - General Stated Complaint: CARDIAC ARREST Time Seen by Provider: 05/25/21 08:51 - History of Present Illness Initial Comments: 65-year-old female, history of nonepileptic spells, PTSD, closed head injury, hypertension, diabetes, CAD, presents to the ED following cardiac arrest. EMS states they were called out for difficulty in breathing to patient's home. When they arrived, patient did appear to be in some respiratory distress, however she did not want to ride in the ambulance. Patient insisted on going to a private vehicle. Patient then collapsed and became unresponsive. Patient was pulseless and apneic. Rhythm was asystole. Patient was intubated by EMS. She was given epi x2. ACLS times approximately 10 minutes followed by return of pulses. Accu-Chek in the 200s. With initial rhythm check here in ED, patient is pulseless, so ACLS restarted. I spoke with son, Antwon Hope ([phone]), who states patient was not compl aining of difficulty breathing. Patient initially thought that patient was having "one of her pseudoseizures." States patient appears anxious and began hyperventilating and screaming, "Help me! Help me!" Son states this is usually what happens prior to her having a pseudoseizure. Son states patient wanted to avoid another ambulance ride due to all of the ambulance bills associated with her ambulance rides secondary to her hospital visits for seizures. MD Complaint: stopped breathing Place: home Shock Advised: No Downtime Before ACLS Arrival (mins): 0 Initial Findings in the Field: other rhythm (Asystole) ROSC in the Field: Yes Associated Symptoms: shortness of breath Treatments Prior to Arrival: intubation, chest compressions, epinephrine mgs # (2) - Related Data Previous Rx's Medication Instructions Recorded Last Taken Type Aspirin EC [Halfprin EC] 81 mg PO QDAY #30 tablet. 05/16/20 02/26/21 22:00 Rx AtorvaSTATin [Lipitor] 40 mg PO QHS #60 tablet 05/16/20 02/26/21 22:00 Rx Citalopram [Celexa] 20 mg PO QDAY #60 tablet 05/16/20 02/26/21 22:00 Rx Metoprolol [Lopressor TAB] 25 mg PO BID #120 tablet 05/16/20 02/26/21 22:00 Rx Valsartan [Diovan] 80 mg PO BID #60 tablet 05/16/20 02/26/21 Rx amLODIPine 10 mg PO DAILY #60 tablet 05/16/20 02/26/21 22:00 Rx hydrALAZINE [Apresoline TAB] 50 mg PO Q8HR #90 tablet 03/01/21 Unknown Rx levETIRAcetam [Keppra TAB] 500 mg PO BID #60 tablet 03/01/21 Unknown Rx Allergies Allergy/AdvReac Type Severity Reaction Status Date / Time No Known Allergies Allergy Unverified 05/11/20 05:28 ED Review of Systems ROS: Stated complaint: CARDIAC ARREST Other details as noted in HPI Comment: Unobtainable due to pts medical conditions Respiratory: shortness of breath ED Past Medical Hx - Past Medical History Hx Hypertension: Yes Hx Heart Attack/AMI: Yes (x2 with unknown amt of stents) Hx Diabetes: Yes Hx Seizures: Yes Additional medical history: high chol,. 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 05/16/20 02/27/21 02/26/21 22:00 Rx AtorvaSTATin [Lipitor] 40 mg PO QHS #60 tablet 05/16/20 02/27/21 02/26/21 22:00 Rx Citalopram [Celexa] 20 mg PO QDAY #60 tablet 05/16/20 02/27/21 02/26/21 22:00 Rx Metoprolol [Lopressor TAB] 25 mg PO BID #120 tablet 05/16/20 02/27/21 02/26/21 22:00 Rx Valsartan [Diovan] 80 mg PO BID #60 tablet 05/16/20 02/27/21 02/26/21 Rx amLODIPine 10 mg PO DAILY #60 tablet 05/16/20 02/27/21 02/26/21 22:00 Rx hydrALAZINE [Apresoline TAB] 50 mg PO Q8HR #90 tablet 03/01/21 Unknown Rx levETIRAcetam [Keppra TAB] 500 mg PO BID #60 tablet 03/01/21 Unknown Rx ED Physical Exam - Head Head exam: Present: atraumatic, normocephalic - Eye Pupils: Present: other (Dilated bilaterally) - ENT ENT exam: Present: other (ET tube in place) - Neck Neck exam: Present: normal inspection - Respiratory Respiratory exam: Present: other (Breath sounds greater in the right lung field versus left lung field) - Cardiovascular Cardiovascular Exam: Present: other (Pulseless) - GI/Abdominal GI/Abdominal exam: Present: soft. Absent: distended - Extremities Exam Extremities exam: Present: normal inspection - Neurological Exam Neurological exam: Present: other (GCS 3) - Skin Skin exam: Present: warm, dry, intact, normal color ED Course Vital Signs 05/25/21 05/25/21 05/25/21 08:48 08:55 09:00 Pulse Rate 120 H 111 H Respiratory 15 14 Rate Blood Pressure 134/57 106/46 Blood Pressure 57/33 [Left] O2 Sat by Pulse 96 94 Oximetry 05/25/21 05/25/21 05/25/21 09:05 09:16 09:30 Pulse Rate 130 H 127 H Respiratory 19 18 Rate Blood Pressure 196/98 190/103 Blood Pressure 134/57 [Left] O2 Sat by Pulse 100 100 Oximetry 05/25/21 05/25/21 05/25/21 09:46 10:00 10:16 Pulse Rate 136 H 143 H 147 H Respiratory 25 H 26 H 19 Rate Blood Pressure 168/58 148/85 138/72 Blood Pressure [Left] O2 Sat by Pulse 99 100 100 Oximetry 05/25/21 05/25/21 05/25/21 10:18 10:30 11:00 Pulse Rate 134 H 150 H Respiratory 30 H 22 35 H Rate Blood Pressure 117/80 116/65 Blood Pressure [Left] O2 Sat by Pulse 98 98 97 Oximetry 05/25/21 05/25/21 05/25/21 11:30 11:56 12:00 Pulse Rate 132 H 150 H 90 Respiratory 23 16 Rate Blood Pressure 117/66 88/56 Blood Pressure [Left] O2 Sat by Pulse 97 95 Oximetry 05/25/21 05/25/21 05/25/21 12:55 13:00 13:12 Pulse Rate 80 81 79 Respiratory 12 13 Rate Blood Pressure 105/55 108/60 110/65 Blood Pressure [Left] O2 Sat by Pulse 98 98 98 Oximetry 05/25/21 05/25/21 13:30 14:00 Pulse Rate 80 78 Respiratory 13 13 Rate Blood Pressure 110/65 116/69 Blood Pressure [Left] O2 Sat by Pulse 99 98 Oximetry - Reevaluation(s) Reevaluation #1: 05/25/21 08:59 Upon ED arrival, patient was found to be pulseless and in PEA. Epi and bicarb were given. One round of ACLS was performed and ROSC was achieved. Reevaluation #2: 05/25/21 09:37 Patient received Levophed peripherally for approximately 30 minutes. Blood pressure improved and Levophed has been discontinued. Reevaluation #3: 05/25/21 12:00 Son at bedside. Consent given by him for placement of central line. - Consultations Consultation #1: 05/25/21 11:29 Heparin drip advised per Dr Franco. - Central Line Placement Right Femoral Consent Obtained: verbal consent Time Out Performed: Yes Patient Placed on Monitor/Pulse Ox: Yes MD Prep: mask, gown, gloves Central Line Prep: Chlorhexidine scrub Ultrasound Used for Placement: Yes Central Line Lumen Inserted: triple Bloods Obtained for Lab: No Central Line Position: good blood return, all ports aspirated, flus, sutured in place with 2-0 Dressing Applied: Tegaderm Patient Tolerated Procedure: well Complications: none ED Medical Decision Making - Lab Data Result diagrams: 05/25/21 09:21 05/25/21 09:21 - EKG Data -: EKG Interpreted by Me EKG shows normal: QRS complexes Rate: tachycardia - EKG Data When compared to previous EKG there are: changes noted Interpretation: other (Atrial fibrillation; diffuse ST depressions) - Radiology Data Radiology results: report reviewed, image reviewed - Medical Decision Making 65-year-old female presents to ED status post cardiac arrest. Patient was intubated in the field, currently on the ventilator. Patient has no purposeful movements, she has intermittent, full body, jerking that lasted only 1 second. History of seizure vs pseudoseizure in the past. Patient was given Ativan for this. She is afebrile. She has WBCs of 17. Blood cultures drawn, vancomycin and cefepime given. Initial lactic acid of 16. Patient given IV fluid bolus of 30 cc/kg. Repeat lactic acid improved to 7.7. Bicarb is 10 and pH is 7.11. Patient was placed on a sodium bicarb drip. Patient was initially in A. fib with RVR following ROSC. EKG shows some ST depressions. Cardiology was consulted. Heparin was recommended. Initial troponin is normal. Metoprolol 5 mg given for rate control. Heart rate improved to the 80s. Patient has actually ended up converting to normal sinus rhythm. CT head negative for any acute findings. CTA chest negative for PE and showed dense dependent consolidation/atelectasis bilaterally. Covid markers and Covid PCR sent. Patient will be admitted by hospitalist, Dr. Major, for further management. - Differential Diagnosis ACS, PE, CVA, arrhythmia Critical Care Time: Yes Critical care time in (mins) excluding proc time.: 35 Critical care attestation.: If time is entered above; I have spent that time in minutes in the direct care of this critically ill patient, excluding procedure time. Critical Care Time: 35 min ED Disposition Clinical Impression: Cardiac arrest, ACS (acute coronary syndrome), Metabolic acidosis, Hyperglycemia, Atrial fibrillation with RVR Disposition: ADMITTED INPATIENT Is pt being admited?: Yes Condition: Critical Referrals: PRIMARY CARE, [Primary Care Provider] - 3-5 Days
[2021-05-25] MEDS ORDERED: SODIUM CHLORIDE 0.9% 1000 ML IV SOLN IV ONE (09:23)
[2021-05-25] MEDS ORDERED: NORepinephrine/NS 8 MG-250 ML 8 MG/250 ML INFUS..BTL IV SCH (09:30)
[2021-05-25 09:41] LABS: Hematocrit 39.9 % (30.3-42.9); Hemoglobin 12.4 gm/dl (10.1-14.3); Mean Corpuscular HGB Conc 31 % (30-34); Mean Corpuscular Volume 106 fl (79-97); Platelet Count 272 K/mm3 (140-440); Red Blood Count 3.76 M/mm3 (3.65-5.03); Red Cell Distribution Width 15.6 % (13.2-15.2)
[2021-05-25 09:52] LABS: INR 1.13 (0.87-1.13)
[2021-05-25 09:53] LABS: Partial Thromboplastin Time 44.3 Sec. (24.2-36.6)
--- NOTE | 2021-05-25 09:58 | XRay Report ---
CHEST 1 VIEW 05/25/2021 8:51 AM INDICATION / CLINICAL INFORMATION: post arrest. COMPARISON: 02/25/2021 FINDINGS: SUPPORT DEVICES: Endotracheal tube and NG tube in satisfactory position. HEART / MEDIASTINUM: No significant abnormality. LUNGS / PLEURA: Moderate bilateral interstitial opacity greatest at the right upper zone. No pleural fluid. No pneumothorax. ADDITIONAL FINDINGS: No significant additional findings. IMPRESSION: 1. Lines and tubes in satisfactory position. 2. Suspected bilateral edema. Signer Name: Alvin Rascon MD Signed: 05/25/2021 9:54 AM Workstation Name: [id number]
[2021-05-25 10:00] LABS: Alanine Aminotransferase 119 units/L (7-56); Albumin 3.2 g/dL (3.9-5); BUN/Creatinine Ratio 11; Blood Urea Nitrogen 11 mg/dL (7-17); Calcium 8.2 mg/dL (8.4-10.2); Hemolysis Index 15
[2021-05-25] MEDS ORDERED: NORepinephrine/NS 4 MG-250 ML 4 MG/250 ML BAG IV SCH (10:00)
[2021-05-25] MEDS ORDERED: CEFEPIME/NS 1 GM/100 ML 1 GM/100 ML BAG IV ONE (10:00)
[2021-05-25 10:01] LABS: C-Reactive Protein 0.2 mg/dL (0.00-1.30)
[2021-05-25] MEDS ORDERED: VANCOMYCIN 1,250 MG in SODIUM CHLORIDE 0.9% 250ML 250 ML IV ONE (10:30)
[2021-05-25] MEDS ORDERED: VANCOMYCIN 1,250 MG in SODIUM CHLORIDE 0.9% 500 ML 500 ML IV NR (10:30)
[2021-05-25 10:35] LABS: Bilirubin,Direct < 0.2 mg/dL (0-0.2)
[2021-05-25] MEDS ORDERED: INSULIN REGULAR, HUMAN 100 UNITS/1 ML IV ONE (11:12)
[2021-05-25] MEDS ORDERED: LORazepam 2 MG/ML VIAL IV ONE (11:15)
[2021-05-25] MEDS ORDERED: METOPROLOL TARTRATE 5 MG/5 ML INJ IV ONE (11:27)
--- NOTE | 2021-05-25 12:43 | Consultation ---
History of Present Illness Consult date: 05/25/21 Consult reason: atrial fibrillation History of present illness: The patient is a 65-year-old woman with a history of hypertension and chronic seizure disorder. She was hospitalized here just 2 months ago, with seizures associated with noncompliance with her Keppra treatment. Today, she was said to have had a syncopal episode which occurred as iron piler arrived to provide assisted medical care. Her rhythm was said to have been asystole, following which they commenced ACLS protocol. By her arrival to the emergency room, the patient had regained rhythm and a pulse, but was in atrial fibrillation. Cardiology consultation was requested in the emergency room. Patient is currently unresponsive, on the vent in the emergency room. She exhibits intermittent tonic clonic seizure activity, which is being managed by the emergency room staff with Ativan. On her rhythm monitor, she has an atrial fibrillation with ventricular rate in the 120s, and blood pressure is 120 systolic. EKG is rapid atrial fibrillation with ST depressions in the anterolateral leads, questionable rate related ST depression versus ischemia. It will be noted that on her previous admission 2 months ago, she was in a stable sinus rhythm. Past History Past Medical History: hypertension, seizures Medications and Allergies Allergies Allergy/AdvReac Type Severity Reaction Status Date / Time No Known Allergies Allergy Unverified 05/11/20 05:28 Home Medications Medication Instructions Recorded Confirmed Last Taken Type Aspirin EC [Halfprin EC] 81 mg PO QDAY #30 tablet. 05/16/20 02/27/21 02/26/21 22:00 Rx AtorvaSTATin [Lipitor] 40 mg PO QHS #60 tablet 05/16/20 02/27/21 02/26/21 22:00 Rx Citalopram [Celexa] 20 mg PO QDAY #60 tablet 05/16/20 02/27/21 02/26/21 22:00 Rx Metoprolol [Lopressor TAB] 25 mg PO BID #120 tablet 05/16/20 02/27/21 02/26/21 22:00 Rx Valsartan [Diovan] 80 mg PO BID #60 tablet 05/16/20 02/27/21 02/26/21 Rx amLODIPine 10 mg PO DAILY #60 tablet 05/16/20 02/27/21 02/26/21 22:00 Rx hydrALAZINE [Apresoline TAB] 50 mg PO Q8HR #90 tablet 03/01/21 Unknown Rx levETIRAcetam [Keppra TAB] 500 mg PO BID #60 tablet 03/01/21 Unknown Rx Active Meds: Active Medications Propofol (Diprivan 10 Mg/Ml) 1,000 mg in 100 mls @ 2.028 mls/hr IV TITR ABDIRAHMAN; Protocol NORepinephrine/NS 8 MG-250 ML (Norepinephrine/Ns 8 Mg-250 Ml (Double Conc)) 8 mg in 250 mls @ 3.75 mls/hr IV TITRATE ABDIRAHMAN; Protocol Sodium Bicarbonate 150 meq/ (Dextrose) 1,150 mls @ 125 mls/hr IV DIRECT ABDIRAHMAN Review of Systems ROS unobtainable: due to endotracheal tube, due to mental status Physical Examination Vital Signs Resp 15 05/25/21 08:48 General appearance: other (Unresponsive on the vent, having active seizures) HEENT: Positive: Other (Pupils for) Neck: Positive: neck supple Cardiac: Positive: irregularly irregular Lungs: Positive: Decreased Breath Sounds Neuro: Positive: Weakness (Unresponsive, on the vent, with active seizures) Abdomen: Positive: Soft Female genitourinary: deferred Skin: Positive: Clear Extremities: Absent: edema Results 05/25/21 09:21 05/25/21 09:21 Cardiac Enzymes 05/25/21 05/25/21 Range/Units 09:21 09:21 AST 162 H (5-40) units/L Lactate Dehydrogenase 445 H (91-180) units/L Coagulation 05/25/21 Range/Units 09:21 PT 15.0 H (12.2-14.9) Sec. INR 1.13 (0.87-1.13) APTT 44.3 H (24.2-36.6) Sec. CBC 05/25/21 Range/Units 09:21 WBC 17.1 H (4.5-11.0) K/mm3 RBC 3.76 (3.65-5.03) M/mm3 Hgb 12.4 (10.1-14.3) gm/dl Hct 39.9 (30.3-42.9) % Plt Count 272 (140-440) K/mm3 Lymph # (Auto) Operations Administrator Comprehensive Metabolic Panel 05/25/21 05/25/21 Range/Units 09:21 09:21 Sodium 144 (137-145) mmol/L Potassium 4.3 (3.6-5.0) mmol/L Chloride 105.5 (98-107) mmol/L Carbon Dioxide 10 L (22-30) mmol/L BUN 11 (7-17) mg/dL Creatinine 1.0 (0.6-1.2) mg/dL Glucose 423 H 424 H (65-100) mg/dL Calcium 8.2 L (8.4-10.2) mg/dL Direct Bilirubin < 0.2 (0-0.2) mg/dL Indirect Bilirubin 0.2 mg/dL AST 162 H (5-40) units/L ALT 119 H (7-56) units/L Alkaline Phosphatase 120 (35-129) units/L Total Protein 5.6 L (6.3-8.2) g/dL Albumin 3.2 L (3.9-5) g/dL EKG interpretations - Telemetry EKG Rhythm: Atrial Fibrillation Assessment and Plan - Patient Problems (1) Respiratory failure Current Visit: Yes Status: Acute Plan to address problem: Patient has an out of hospital syncopal episode, brought in with respiratory failure. Her initial rhythm was asystole, unclear if this was a primary cardiac event. However, patient has a history of seizure disorder, with active ongoing seizure activity in the emergency room. We will recommend heparin therapy, beta-blockers, and CT angio for PE protocol, and optimal treatment of seizure activity. Further cardiac evaluation and management will depend on clinical course. (2) Atrial fibrillation Current Visit: Yes Status: Acute Plan to address problem: Atrial fibrillation is new, and following ACLS resuscitative protocol including adrenergic agents. Patient's abnormal ST segments may be rate related or may indicate ischemia. We have recommended heparin therapy, further cardiac evaluation will depend on clinical course.
[2021-05-25 12:55] LABS: Mucus,Urine FEW /HPF
--- NOTE | 2021-05-25 13:11 | Cat Scan Report ---
CT head/brain wo con INDICATION / CLINICAL INFORMATION: 65 years Female; cardiac arrest. TECHNIQUE: Routine CT head without contrast. All CT scans at this location are performed using CT dos e reduction for ALARA by means of automated exposure control. COMPARISON: 02/25/2021 FINDINGS: BRAIN / INTRACRANIAL CONTENTS: No acute hemorrhage, mass effect, midline shift, hydrocephalus, or acu te, large territorial infarct. No signs of significant atrophy or chronic infarct. Minimal, nonspecif ic white matter disease suggested. CRANIOCERVICAL JUNCTION: No significant abnormality. ORBITS: No significant abnormality of visualized orbits. SINUSES / MASTOIDS: Patient appears be intubated or OG tube is in place. Mild mucosal thickening seen in the ethmoids. ADDITIONAL FINDINGS: Mild temporomandibular joint disease noted. IMPRESSION: 1. No focal mass, hemorrhage, hydrocephalus, or acute, large territorial infarct. Signer Name: Dustin Lerma MD, III Signed: 05/25/2021 1:07 PM Workstation Name: [id number]
--- NOTE | 2021-05-25 13:14 | Cat Scan Report ---
CTA chest with contrast CT abdomen and pelvis with contrast INDICATION : cardiac arrest 100 ml omni 350 . TECHNIQUE: Axial imaging performed through the chest, with contrast bolus timing set to maximize opa cification of the pulmonary arteries. 3-plane MIP reformatted images were obtained. Axial imaging als o performed through the abdomen and pelvis with the use of intravenous contrast. All CT scans at this location are performed using CT dose reduction for ALARA by means of automated exposure control. 100 mL of intravenous contrast administered. COMPARISON: None FINDINGS: CTA chest: Contrast bolus timing is adequate with no filling defect present to suggest PTE. Heart size is normal . Great vessels are unremarkable. Endotracheal tube is near the level the pari and should be retrac claus 3 cm. NG tube tip terminates in the mid stomach. There is dense bibasilar consolidation/effusion which is dependent. Other areas of mild edema/streaky atelectasis are seen in the lungs. There are degenerative changes in the spine with nothing acute. CT abdomen/pelvis: The liver, gallbladder, spleen, pancreas, adrenals, kidneys, and proximal GI tract appear unremarkabl e. Urinary bladder is collapsed with a Tan catheter in place. No pelvic free fluid or acute colonic ab normality identified. There is colonic diverticulosis with mild mucosal enhancement and fluid-filled appearance of the proximal colon and distal small bowel. No bowel obstruction. IMPRESSION: 1. Negative for PTE. 2. Dense dependent consolidation/atelectasis in the lungs. 3. Proximal colonic and distal small bowel findings as outlined above, nonspecific but could be seen in the setting of hypotension (i.e. shock bowel). Follow-up and correlation with lactic acid level re commended. 4. Endotracheal tube should be retracted 3 cm. Signer Name: Rios Garcia MD Signed: 05/25/2021 1:10 PM Workstation Name: [id number]
[2021-05-25] MEDS ORDERED: HEPARIN 10,000 UNITS/10 ML VIAL IV ONE (13:41)
[2021-05-25] MEDS ORDERED: HYDROmorphone 1 MG/1 ML INJ IV PRN (13:48)
[2021-05-25] MEDS ORDERED: oxyCODONE /ACETAMINOPHEN 5-325MG TAB PO PRN (13:48)
[2021-05-25] MEDS: SODIUM BICARBONATE 150 MEQ in DEXTROSE 5% IN WATER 1,000 ML IV SCH ×2 (13:50→22:20)
[2021-05-25] MEDS ORDERED: ACETAMINOPHEN 325 MG TAB PO PRN (13:54)
--- NOTE | 2021-05-25 13:54 | History and Physical Report ---
History of Present Illness Chief complaint: Unresponsive History of present illness: 65 YO Female with HTN, PA, CAD S/P Stent Placement, Nicotine Dependence, DM, HLD, Seizure Disorder presents to ED for evaluation. Patient is intubated and ambulatory support at the time my evaluation is unable to provide history. Jo ent agitated when EMS staff, ED staff, as well as the patient's son who was made available by telephone for interview. As per son the patient was in her usual state of health on the day prior to admission. 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 Patient son reports that patient began hyperventilating and screaming "help me, help me. EMS was notified and upon arrival the patient was found to be in distress and subsequently lost consciousness and was found to have asystole on classroom monitor. Patient was treated" with ACLS protocol with return of perfusing cardiac rhythm. The patient was transported to [facility] for further care and evaluation of the aforementioned symptoms. The patient was seen and evaluated in the emergency department and shortly upon arrival to the emergency department the patient experienced repeated asystole. Patient was again treated" with ACLS protocol with eventual return of perfusing cardiac rhythm. Patient was found to have acute hypoxemic respiratory failure and was unable to protect her airway and was subsequently intubated while in the emergency department. The patient was also found to have atrial fibrillation with rapid ventricular response, metabolic acidosis, sepsis, toxic metabolic encephalopathy and suspected anoxic brain injury. Patient admitted to ICU and initiated on sepsis protocol. Cardiology team consulted in ED. Critical care team consulted in ED. prior admission on 02/25/2021 reviewed. All medication listed at time of admission has been reconciled. Advanced care planning conducted in ED. Past History Past Medical History: CAD, hypertension, seizures, other (See HPI) Past Surgical History: Other (Cardiac stent placement, bladder surgery.) Social history: , smoking. denies: alcohol abuse, prescription drug abuse Family history: diabetes, hypertension Medications and Allergies Allergies Allergy/AdvReac Type Severity Reaction Status Date / Time No Known Allergies Allergy Unverified 05/11/20 05:28 Home Medications Medication Instructions Recorded Confirmed Last Taken Type Aspirin EC [Halfprin EC] 81 mg PO QDAY #30 tablet. 05/16/20 02/27/21 02/26/21 22:00 Rx AtorvaSTATin [Lipitor] 40 mg PO QHS #60 tablet 05/16/20 02/27/21 02/26/21 22:00 Rx Citalopram [Celexa] 20 mg PO QDAY #60 tablet 05/16/20 02/27/21 02/26/21 22:00 Rx Metoprolol [Lopressor TAB] 25 mg PO BID #120 tablet 05/16/20 02/27/21 02/26/21 22:00 Rx Valsartan [Diovan] 80 mg PO BID #60 tablet 05/16/20 02/27/21 02/26/21 Rx amLODIPine 10 mg PO DAILY #60 tablet 05/16/20 02/27/21 02/26/21 22:00 Rx hydrALAZINE [Apresoline TAB] 50 mg PO Q8HR #90 tablet 03/01/21 Unknown Rx levETIRAcetam [Keppra TAB] 500 mg PO BID #60 tablet 03/01/21 Unknown Rx Active Meds: Active Medications Acetaminophen (Acetaminophen 325 Mg Tab) 650 mg PO Q6H PRN PRN Reason: Pain MILD(1-3)/Fever >100.5/SOTOMAYOR Heparin Sodium (Porcine) (Heparin 10,000 Units/10 Ml Vial) 2,700 unit 40 unit/kg (2700 unit) IV Q6H PRN PRN Reason: Anti-Xa Assay < 0.1 units/ml Hydromorphone HCl (Hydromorphone 1 Mg/1 Ml Inj) 0.25 mg IV Q24H PRN PRN Reason: Pain, Moderate (4-6) Propofol (Diprivan 10 Mg/Ml) 1,000 mg in 100 mls @ 2.028 mls/hr IV TITR ABDIRAHMAN; Protocol NORepinephrine/NS 8 MG-250 ML (Norepinephrine/Ns 8 Mg-250 Ml (Double Conc)) 8 mg in 250 mls @ 3.75 mls/hr IV TITRATE ABDIRAHMAN; Protocol Sodium Bicarbonate 150 meq/ (Dextrose) 1,150 mls @ 125 mls/hr IV DIRECT ABDIRAHMAN Heparin Sodium/Sodium Chloride (Heparin/ 0.45% Nacl-25,000 Unit/500 Ml) 25,000 unit in 500 mls @ 20.276 mls/hr IV TITRATE ABDIRAHMAN; Protocol Oxycodone/Acetaminophen (Oxycodone /Acetaminophen 5-325mg Tab) 1 tab PO Q12H PRN PRN Reason: Pain, Moderate (4-6) Sodium Chloride (Sodium Chloride 0.9% 10 Ml Flush Syringe) 10 ml IV BID ABDIRAHMAN Sodium Chloride (Sodium Chloride 0.9% 10 Ml Flush Syringe) 10 ml IV PRN PRN PRN Reason: LINE FLUSH Review of Systems ROS unobtainable: due to endotracheal tube, due to mental status Exam - Constitutional Vitals: Temp Pulse Resp BP Pulse Ox 79 30 H 110/65 98 05/25/21 13:12 05/25/21 10:18 05/25/21 13:12 05/25/21 13:12 General appearance: Present: mild distress - EENT Eyes: Present: miosis ENT: hearing decreased - Neck Neck: Present: supple, normal ROM - Respiratory Respiratory effort: labored Respiratory: bilateral: diminished, rhonchi - Cardiovascular Rhythm: irregularly irregular - Extremities Extremities: pulses symmetrical, No edema Extremity abnormal: edema Peripheral Pulses: abnormal (Capillary refill greater than 3.5 seconds) - Integumentary Integumentary: Present: clear, warm, dry - Musculoskeletal Musculoskeletal: generalized weakness - Psychiatric Psychiatric: no appropriate mood/affect, no intact judgment & insight, no memory intact - Neurologic Neurologic: CNII-XII intact, no focal deficits, moves all extremities, no gait normal HEART Score - HEART Score Troponin: Troponin T < 0.010 ng/mL (0.00-0.029) 05/25/21 09:21 Results - Labs CBC & Chem 7: 05/25/21 09:21 05/25/21 09:21 Labs: Abnormal lab results 05/25/21 05/25/21 05/25/21 Range/Units 09:07 09:21 09:21 WBC 17.1 H (4.5-11.0) K/mm3 MCV 106 H (79-97) fl MCH 33 H (28-32) pg RDW 15.6 H (13.2-15.2) % PT 15.0 H (12.2-14.9) Sec. APTT 44.3 H (24.2-36.6) Sec. D-Dimer > 25790 H (0-234) ng/mlDDU ABG pH 7.116 L (7.320-7.450) ABG Oxyhemoglobin 93.7 L (94-98) ABG Glucose 395 H (65-95) mg/dL Carbon Dioxide (22-30) mmol/L Glucose (65-100) mg/dL Lactic Acid (0.7-2.0) mmol/L Calcium (8.4-10.2) mg/dL Ferritin (10.0-200.0) ng/mL AST (5-40) units/L ALT (7-56) units/L Lactate Dehydrogenase (91-180) units/L Total Protein (6.3-8.2) g/dL Albumin (3.9-5) g/dL Arterial Blood Glucose 395 H (65-95) mg/dL Arterial Blood Ionized Calcium 4.4 L (4.6-5.3) mg/dL 05/25/21 05/25/21 05/25/21 Range/Units : 09: 09:21 WBC (4.5-11.0) K/mm3 MCV (79-97) fl MCH (28-32) pg RDW (13.2-15.2) % PT (12.2-14.9) Sec. APTT (24.2-36.6) Sec. D-Dimer (0-234) ng/mlDDU ABG pH (7.320-7.450) ABG Oxyhemoglobin (94-98) ABG Glucose (65-95) mg/dL Carbon Dioxide 10 L (22-30) mmol/L Glucose 423 H 424 H (65-100) mg/dL Lactic Acid (0.7-2.0) mmol/L Calcium 8.2 L (8.4-10.2) mg/dL Ferritin 321.6 H (10.0-200.0) ng/mL AST 162 H (5-40) units/L ALT 119 H (7-56) units/L Lactate Dehydrogenase 445 H (91-180) units/L Total Protein 5.6 L (6.3-8.2) g/dL Albumin 3.2 L (3.9-5) g/dL Arterial Blood Glucose (65-95) mg/dL Arterial Blood Ionized Calcium (4.6-5.3) mg/dL 05/25/21 05/25/21 Range/Units 09:35 11:12 WBC (4.5-11.0) K/mm3 MCV (79-97) fl MCH (28-32) pg RDW (13.2-15.2) % PT (12.2-14.9) Sec. APTT (24.2-36.6) Sec. D-Dimer (0-234) ng/mlDDU ABG pH (7.320-7.450) ABG Oxyhemoglobin (94-98) ABG Glucose (65-95) mg/dL Carbon Dioxide (22-30) mmol/L Glucose (65-100) mg/dL Lactic Acid 16.70 H* 7.70 H* (0.7-2.0) mmol/L Calcium (8.4-10.2) mg/dL Ferritin (10.0-200.0) ng/mL AST (5-40) units/L ALT (7-56) units/L Lactate Dehydrogenase (91-180) units/L Total Protein (6.3-8.2) g/dL Albumin (3.9-5) g/dL Arterial Blood Glucose (65-95) mg/dL Arterial Blood Ionized Calcium (4.6-5.3) mg/dL Assessment and Plan - Patient Problems (1) Sepsis Current Visit: Yes Status: Acute Qualifiers: Acute respiratory failure type: with hypoxia Plan to address problem: Sepsis protocol: Chest x-ray, CBC, CMP, urinalysis, blood culture, monitor urine output every shift, monitor fluid balance, IV fluid resuscitation therapy, maintain mean arterial pressure greater than or equal to 65, IV pressor support as clinically indicated to maintain mean arterial pressure, serial lactic acid level. The high probability of a clinically significant, sudden or life threatening deterioration of the [cardiac, pulmonary, neuro, renal] system(s) required my full and direct attention, intervention and personal management. The aggregate critical care time was [65] minutes. This time is in addition to time spent performing reported procedures but includes the following: [x] Data Review and interpretation [x] Patient assessment and monitoring of vital signs [x] Documentation [x] Medication orders and management (2) Acute hypoxemic respiratory failure Current Visit: Yes Status: Acute Plan to address problem: Patient intubated and on ventilatory support. Critical care team consulted. Wean vent as tolerated, daily spontaneous breathing trial, sedation holiday, supportive care, arterial blood gas. (3) Toxic metabolic encephalopathy Current Visit: Yes Status: Acute Plan to address problem: Supportive care, neuro check, CT scan head, treat sepsis, (4) Anoxic brain injury Current Visit: Yes Status: Acute Plan to address problem: Supportive care, neuro check, repeat CT scan brain when medically stable. (5) Cardiac arrest Current Visit: Yes Status: Acute Plan to address problem: Patient treated" with ACLS protocol with return of perfusing cardiac rhythm. (6) Atrial fibrillation with RVR Current Visit: Yes Status: Acute Plan to address problem: Cardiology team consulted, continue therapeutic anticoagulation as per cardiology team, supportive care., Rate control. (7) Metabolic acidosis Current Visit: Yes Status: Acute Plan to address problem: IV fluid resuscitation therapy, bicarbonate drip. (8) Seizure Current Visit: No Status: Acute Plan to address problem: Neuro check, antiepileptic therapy with Keppra, (9) DVT prophylaxis Current Visit: Yes Status: Acute Plan to address problem: SCD to bilateral lower extremities while in bed, continue therapeutic anticoagulation (10) Advance care planning Current Visit: Yes Status: Acute Plan to address problem: Disease education conducted, care plan discussed, diagnoses discussed, poor prognosis discussed, patient is full code, patient son Antwon Higginbotham acknowledges understanding and agreement with care plan, +30 minutes.
[2021-05-25] MEDS: HEPARIN/ 0.45% NACL DRIP 25,000 UNIT/500 ML BAG IV SCH (14:53)
[2021-05-25 16:41] LABS: Chol/HDL Ratio 3.09 %
[2021-05-25 18:38] LABS: Bacteria,Urine 4+ /HPF (Negative); Bilirubin,Urine NEG (Negative); Blood,Urine MOD (Negative); Color,Urine Straw (Yellow); Urobilinogen,Urine < 2.0 mg/dL (<2.0)
--- NOTE | 2021-05-25 18:50 | Consultation ---
History of Present Illness Consult date: 05/25/21 Requesting physician: TOAN NAVARRETE Reason for consult: other (Cardiac Arrest with ROSC; Acute Hypoxemic Respiratory Failure ) History of present illness: PCCM Consult Note (Full dictation # [id number]) Please see dictated notes for full details Past History Past Medical History: CAD, hypertension, seizures, other (See HPI) Past Surgical History: Other (Cardiac stent placement, bladder surgery.) Social history: , smoking. denies: alcohol abuse, prescription drug abuse Family history: diabetes, hypertension Medications and Allergies Allergies Allergy/AdvReac Type Severity Reaction Status Date / Time No Known Allergies Allergy Unverified 05/11/20 05:28 Home Medications Medication Instructions Recorded Confirmed Last Taken Type Aspirin EC [Halfprin EC] 81 mg PO QDAY #30 tablet. 05/16/20 02/27/21 02/26/21 22:00 Rx AtorvaSTATin [Lipitor] 40 mg PO QHS #60 tablet 05/16/20 02/27/21 02/26/21 22:00 Rx Citalopram [Celexa] 20 mg PO QDAY #60 tablet 05/16/20 02/27/21 02/26/21 22:00 Rx Metoprolol [Lopressor TAB] 25 mg PO BID #120 tablet 05/16/20 02/27/21 02/26/21 22:00 Rx Valsartan [Diovan] 80 mg PO BID #60 tablet 05/16/20 02/27/21 02/26/21 Rx amLODIPine 10 mg PO DAILY #60 tablet 05/16/20 02/27/21 02/26/21 22:00 Rx hydrALAZINE [Apresoline TAB] 50 mg PO Q8HR #90 tablet 03/01/21 Unknown Rx levETIRAcetam [Keppra TAB] 500 mg PO BID #60 tablet 03/01/21 Unknown Rx Active Meds: Active Medications Acetaminophen (Acetaminophen 325 Mg Tab) 650 mg PO Q6H PRN PRN Reason: Pain MILD(1-3)/Fever >100.5/SOTOMAYOR Heparin Sodium (Porcine) (Heparin 10,000 Units/10 Ml Vial) 2,700 unit 40 unit/kg (2700 unit) IV Q6H PRN PRN Reason: Anti-Xa Assay < 0.1 units/ml Hydromorphone HCl (Hydromorphone 1 Mg/1 Ml Inj) 0.25 mg IV Q24H PRN PRN Reason: Pain, Moderate (4-6) Propofol (Diprivan 10 Mg/Ml) 1,000 mg in 100 mls @ 2.028 mls/hr IV TITR ABDIRAHMAN; Protocol Last Titration: 05/25/21 17:48 Dose: 20 mcg/kg/min, 8.11 mls/hr Documented by: NORepinephrine/NS 8 MG-250 ML (Norepinephrine/Ns 8 Mg-250 Ml (Double Conc)) 8 mg in 250 mls @ 3.75 mls/hr IV TITRATE ABDIRAHMAN; Protocol Sodium Bicarbonate 150 meq/ (Dextrose) 1,150 mls @ 125 mls/hr IV DIRECT ABDIRAHMAN Last Admin: 05/25/21 13:50 Dose: 125 mls/hr Documented by: Heparin Sodium/Sodium Chloride (Heparin/ 0.45% Nacl-25,000 Unit/500 Ml) 25,000 unit in 500 mls @ 20 mls/hr IV TITRATE ABDIRAHMAN; Protocol Last Admin: 05/25/21 14:53 Dose: 1,000 units/hr, 20 mls/hr Documented by: Cefepime HCl (Cefepime/Ns 2 Gm/100 Ml) 2 gm in 100 mls @ 200 mls/hr IV Q12H ABDIRAHMAN; Protocol Oxycodone/Acetaminophen (Oxycodone /Acetaminophen 5-325mg Tab) 1 tab PO Q12H PRN PRN Reason: Pain, Moderate (4-6) Sodium Chloride (Sodium Chloride 0.9% 10 Ml Flush Syringe) 10 ml IV BID ABDIRAHMAN Sodium Chloride (Sodium Chloride 0.9% 10 Ml Flush Syringe) 10 ml IV PRN PRN PRN Reason: LINE FLUSH Physical Examination Vital signs: Vital Signs Resp 15 05/25/21 08:48 Results - Laboratory Findings CBC and BMP: 05/25/21 09:21 05/25/21 09:21 ABG ABG pH 7.116 (7.320-7.450) L 05/25/21 09:07 POC ABG pCO2 41.1 mmHg (32.0-48.0) 05/25/21 09:07 POC ABG pO2 106.2 mmHg (83-108) 05/25/21 09:07 POC ABG HCO3 12.9 05/25/21 09:07 ABG O2 Saturation 94.9 (0-100) 05/25/21 09:07 PT/INR, D-dimer PT 15.0 Sec. (12.2-14.9) H 05/25/21 09:21 INR 1.13 (0.87-1.13) 05/25/21 09:21 D-Dimer > 73860 ng/mlDDU (0-234) H 05/25/21 09:21 Abnormal lab findings: Abnormal Labs 05/25/21 05/25/21 05/25/21 09:07 09:21 09:21 WBC 17.1 H MCV 106 H MCH 33 H RDW 15.6 H PT 15.0 H APTT 44.3 H D-Dimer > 54334 H ABG pH 7.116 L ABG Oxyhemoglobin 93.7 L ABG Glucose 395 H Carbon Dioxide Glucose Lactic Acid Calcium Ferritin AST ALT Lactate Dehydrogenase Troponin T Total Protein Albumin HDL Cholesterol Arterial Blood Glucose 395 H Arterial Blood Ionized Calcium 4.4 L 05/25/21 05/25/21 05/25/21 09:21 09:21 09:21 WBC MCV MCH RDW PT APTT D-Dimer ABG pH ABG Oxyhemoglobin ABG Glucose Carbon Dioxide 10 L Glucose 423 H 424 H Lactic Acid Calcium 8.2 L Ferritin 321.6 H AST 162 H ALT 119 H Lactate Dehydrogenase 445 H Troponin T Total Protein 5.6 L Albumin 3.2 L HDL Cholesterol Arterial Blood Glucose Arterial Blood Ionized Calcium 05/25/21 05/25/21 05/25/21 09:35 11:12 14:07 WBC MCV MCH RDW PT APTT D-Dimer ABG pH ABG Oxyhemoglobin ABG Glucose Carbon Dioxide Glucose Lactic Acid 16.70 H* 7.70 H* 3.90 H* Calcium Ferritin AST ALT Lactate Dehydrogenase Troponin T Total Protein Albumin HDL Cholesterol Arterial Blood Glucose Arterial Blood Ionized Calcium 05/25/21 15:19 WBC MCV MCH RDW PT APTT D-Dimer ABG pH ABG Oxyhemoglobin ABG Glucose Carbon Dioxide Glucose Lactic Acid Calcium Ferritin AST ALT Lactate Dehydrogenase Troponin T 0.226 H* D Total Protein Albumin HDL Cholesterol 64 H Arterial Blood Glucose Arterial Blood Ionized Calcium
[2021-05-25] MEDS ORDERED: LIP THERAPY VASELINE TP PRN (19:04)
[2021-05-25] MEDS ORDERED: MINERAL OIL/PETROLATUM, WHITE OPHTH OINT 3.5 GM OU PRN (19:04)
[2021-05-25] MEDS ORDERED: MIDAZOLAM 2 MG/2 ML INJ IV PRN (19:04)
[2021-05-25 19:43] LABS: Band Neutrophils # (Manual) 0.9 K/mm3; Myelocytes # (Manual) 0.2 K/mm3; Total Cells Counted 100
[2021-05-25] MEDS ORDERED: levETIRAcetam 500 MG in SODIUM CHLORIDE 0.9% 100 ML IV SCH ×2 (20:00→22:00)
[2021-05-25] MEDS: levETIRAcetam 500 MG in DEXTROSE 5% IN WATER 100 ML IV SCH (21:12)
[2021-05-25] MEDS: MIDAZOLAM 100 MG in SODIUM CHLORIDE 0.9% 80 ML IV SCH (21:38)
[2021-05-25] MEDS: FAMOTIDINE 20 MG/2 ML INJ IV SCH (21:38)
[2021-05-25] MEDS: CEFEPIME/NS 2 GM/100 ML 2 GM/100 ML BAG IV SCH (23:57)
[2021-05-25] MEDS: SENNOSIDES/DOCUSATE SODIUM 8.6/50 MG TAB FEEDTUBE SCH (23:58)
--- NOTE | 2021-05-26 01:02 | XRay Report ---
CHEST 1 VIEW 05/25/2021 11:48 PM INDICATION / CLINICAL INFORMATION: follow up respiratory failure. COMPARISON: None available. FINDINGS: SUPPORT DEVICES: Stable, satisfactory device positioning. HEART / MEDIASTINUM: No significant abnormality. LUNGS / PLEURA: Bilateral perihilar and pulmonary opacities. Left lower lung opacity appears new No p neumothorax. ADDITIONAL FINDINGS: No significant additional findings. IMPRESSION: 1. Worsening bilateral pulmonary opacities with new left lower lung opacity Signer Name: Flo Brown MD Signed: 05/26/2021 12:57 AM Workstation Name: [id number]
[2021-05-26 06:42] LABS: Alanine Aminotransferase 97 units/L (7-56); Albumin 3.3 g/dL (3.9-5); BUN/Creatinine Ratio 15; Blood Urea Nitrogen 9 mg/dL (7-17); Calcium 7.2 mg/dL (8.4-10.2); Hemolysis Index 125
[2021-05-26] MEDS: SODIUM BICARBONATE 150 MEQ in DEXTROSE 5% IN WATER 1,000 ML IV SCH ×2 (07:02→16:21)
[2021-05-26] MEDS: levETIRAcetam 500 MG in DEXTROSE 5% IN WATER 100 ML IV SCH ×2 (08:10→21:05)
[2021-05-26] MEDS: SENNOSIDES/DOCUSATE SODIUM 8.6/50 MG TAB FEEDTUBE SCH ×2 (09:45→22:12)
[2021-05-26] MEDS ORDERED: SODIUM BICARBONATE 325 MG TAB FEEDTUBE PRN (10:00)
[2021-05-26] MEDS ORDERED: LIPASE 10,500/PROTEASE 25,000/AMYLASE 43,750 (UNITS) DR CAP FEEDTUBE PRN (10:00)
[2021-05-26] MEDS ORDERED: SIMPLE SYRUP 15 ML FEEDTUBE PRN ×2 (10:00)
[2021-05-26] MEDS: FAMOTIDINE 20 MG/2 ML INJ IV SCH ×2 (10:09→22:12)
--- NOTE | 2021-05-26 10:18 | Progress Note ---
Assessment and Plan Acute hypoxemic respiratory failure on MVS s/p Cardiopulmonary arrest wtih ROSC h/o Seizure disorder Sepsis Toxic metabolic encephalopathy, possible anoxia Atrial fibrillation with RVR Metabolic acidosis Bilateral lower lobe infiltrates on imaging -Sepsis protocol: Chest x-ray, CBC, CMP, urinalysis, blood culture, monitor urine output every shift, monitor fluid balance, IV fluid resuscitation therapy, maintain mean arterial pressure greater than or equal to 65, IV vasopressor support as clinically indicated to maintain mean arterial pressure >65, serial lactic acid level. - continue to titrate supplemental oxygen to keep SpO2 88-90% - VAP bundle addressed, aspiration precautions HOB >30 - continue lung protective strategies - continue bronchodilators (MARY & LABA) with pulmonary hygiene per RT - daily assessment for readiness to wean, SAT and SBT -EEG ordered and Neurology consult per hospitalist service -Accuchecks with glycemic control per SSI (While critically ill target blood glucose of 140-180 mg/dL; avoid hypoglycemia) -Place OGT/NGT fro enteric nutritional support - sedation prn for target RASS 0 to -1 - avoid nephrotoxins, renally dose all medications -Conservative fluid management, currently on bicarbonate infusions -ABG in am, CXR in am -Stop bicarbonate infusion - Empiric antibiotics ( Cefepime) for sepsis. De-escalate based on culture data and clinical response -Follow cultures( no growth to date, Sputum GPC in pairs) - prn analgesia per CPOT score - Maintenance of sleep-wake cycle, avoid delirium - Stress ulcer prophyalxis- Famotidine -VTE prophylaxis, on therapeutic heparin fro Atrial fibrillation - mobility, off loading, frequent turning per facility protocol for pressure ulcer prevention - Monitor hemodynamics closely - continue other care per attending / other consultants COVID SPECIFIC INTERVENTIONS -Negative CONDITION: CRITICAL PROGNOSIS: GUARDED CODE STATUS: FULL CODE Discussed extensively with the son at the bedside and answered all his questions Discussed with hospitalist service The high probability of a clinically significant, sudden or life-threatening deterioration of the [respiratory, cardiovascular, neurologic] system(s) required my full and direct attention, intervention and personal management. The aggregate critical care time was [75] minutes without overlap. Time includes spent on; [x] Data Review and interpretation [x] Patient assessment and monitoring of vital signs [x] Documentation [x] Medication orders and management Subjective Date of service: 05/26/21 Interval history: Summary per medical records. Information verified at the bedside with her son 65 YO Female with HTN, VT, CAD S/P Stent Placement, Nicotine Dependence, DM, HLD, Seizure Disorder presents to ED for evaluation. Patient is intubated and ambulatory support at the time my evaluation is unable to provide history. Patient agitated when EMS staff, ED staff, as well as the patient's son who was made available by telephone for interview. As per son the patient was in her usual state of health on the day prior to admission. 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 Patient son reports that patient began hyperventilating and screaming "help me, help me. EMS was notified and upon arrival the patient was found to be in distress and subsequently lost consciousness and was found to have asystole on media monitor. Patient was treated" with ACLS protocol with return of perfusing cardiac rhythm. The patient was transported to [facility] for further care and evaluation of the aforementioned symptoms. The patient was seen and evaluated in the emergency department and shortly upon arrival to the emergency department the patient experienced repeated asystole. Patient was again treated" with ACLS protocol with eventual return of perfusing cardiac rhythm. Patient was found to have acute hypoxemic respiratory failure and was unable to protect her airway and was subsequently intubated while in the emergency department. The patient was also found to have atrial fibrillation with rapid ventricular response, metabolic acidosis, sepsis, toxic metabolic encephalopathy and suspected anoxic brain injury. Patient admitted to ICU and initiated on sepsis protocol. Follow up for: acute hypoxemic resp failure; s/p cardiopulmonary arrest with ROSC; Seizure disorder Patient seen and examined. Vitals, labs, medications, cahrt reviewed. Son at the bedside. No fevers, no vomiting. Orally intubated on MVS, OGT in place Sedated on Midazolam and Propofol, just received one dose of Lorazepam for witnessed seizure by RN On bicarbonate infusion Discussed with respiratory and nursing Objective Vital Signs - 12hr 05/25/21 05/25/21 05/25/21 22:20 22:30 22:40 Temperature Pulse Rate 86 87 87 Respiratory 20 22 21 Rate Blood Pressure 124/85 131/71 136/74 Blood Pressure [Left] O2 Sat by Pulse 100 100 100 Oximetry 05/25/21 05/25/21 05/25/21 22:50 23:00 23:10 Temperature Pulse Rate 88 88 87 Respiratory 20 21 21 Rate Blood Pressure 136/74 135/70 140/70 Blood Pressure [Left] O2 Sat by Pulse 100 100 100 Oximetry 05/25/21 05/25/21 05/25/21 23:20 23:30 23:40 Temperature Pulse Rate 88 89 91 H Respiratory 20 20 20 Rate Blood Pressure 140/70 139/70 134/74 Blood Pressure [Left] O2 Sat by Pulse 100 100 100 Oximetry 05/25/21 05/26/21 05/26/21 23:50 00:00 00:10 Temperature Pulse Rate 90 90 89 Respiratory 20 20 20 Rate Blood Pressure 134/74 139/69 134/74 Blood Pressure [Left] O2 Sat by Pulse 100 100 100 Oximetry 05/26/21 05/26/21 05/26/21 00:20 00:30 00:40 Temperature Pulse Rate 90 89 88 Respiratory 20 20 20 Rate Blood Pressure 134/74 147/80 142/68 Blood Pressure [Left] O2 Sat by Pulse 100 100 100 Oximetry 05/26/21 05/26/21 05/26/21 00:50 01:00 01:10 Temperature Pulse Rate 89 90 90 Respiratory 20 20 20 Rate Blood Pressure 142/68 144/68 145/70 Blood Pressure [Left] O2 Sat by Pulse 100 100 100 Oximetry 05/26/21 05/26/21 05/26/21 01:20 01:30 01:40 Temperature Pulse Rate 93 H 92 H 92 H Respiratory 21 20 20 Rate Blood Pressure 145/70 150/77 144/68 Blood Pressure [Left] O2 Sat by Pulse 100 100 100 Oximetry 05/26/21 05/26/21 05/26/21 01:50 02:00 02:10 Temperature Pulse Rate 92 H 90 92 H Respiratory 20 19 20 Rate Blood Pressure 144/68 142/71 148/74 Blood Pressure [Left] O2 Sat by Pulse 100 100 100 Oximetry 05/26/21 05/26/21 05/26/21 02:20 02:30 02:32 Temperature Pulse Rate 91 H 91 H Respiratory 20 20 20 Rate Blood Pressure 148/74 141/73 Blood Pressure [Left] O2 Sat by Pulse 100 100 98 Oximetry 05/26/21 05/26/21 05/26/21 02:40 02:50 03:00 Temperature Pulse Rate 91 H 91 H 91 H Respiratory 20 19 20 Rate Blood Pressure 141/72 141/72 141/70 Blood Pressure [Left] O2 Sat by Pulse 100 100 100 Oximetry 05/26/21 05/26/21 05/26/21 03:10 03:20 03:30 Temperature Pulse Rate 90 92 H 91 H Respiratory 20 19 20 Rate Blood Pressure 136/68 136/68 135/70 Blood Pressure [Left] O2 Sat by Pulse 100 100 100 Oximetry 05/26/21 05/26/21 05/26/21 03:40 03:41 03:50 Temperature Pulse Rate 91 H 91 H 91 H Respiratory 20 20 Rate Blood Pressure 134/66 134/66 134/66 Blood Pressure [Left] O2 Sat by Pulse 100 100 100 Oximetry 05/26/21 05/26/21 05/26/21 04:00 04:10 04:20 Temperature Pulse Rate 92 H 89 90 Respiratory 20 20 20 Rate Blood Pressure 139/69 143/67 143/67 Blood Pressure [Left] O2 Sat by Pulse 100 100 100 Oximetry 05/26/21 05/26/21 05/26/21 04:30 04:40 04:50 Temperature Pulse Rate 90 90 90 Respiratory 20 20 20 Rate Blood Pressure 135/67 131/68 131/68 Blood Pressure [Left] O2 Sat by Pulse 100 100 100 Oximetry 05/26/21 05/26/21 05/26/21 05:00 05:10 05:20 Temperature Pulse Rate 90 90 89 Respiratory 20 20 20 Rate Blood Pressure 140/71 137/70 137/70 Blood Pressure [Left] O2 Sat by Pulse 100 100 100 Oximetry 05/26/21 05/26/21 05/26/21 05:30 05:40 05:50 Temperature Pulse Rate 90 89 91 H Respiratory 20 20 20 Rate Blood Pressure 141/68 136/69 141/68 Blood Pressure [Left] O2 Sat by Pulse 100 100 100 Oximetry 05/26/21 05/26/21 05/26/21 06:00 06:10 06:20 Temperature Pulse Rate 93 H 92 H 90 Respiratory 20 20 20 Rate Blood Pressure 143/71 150/73 136/69 Blood Pressure [Left] O2 Sat by Pulse 100 100 100 Oximetry 05/26/21 05/26/21 05/26/21 06:30 06:40 06:50 Temperature Pulse Rate 91 H 92 H 91 H Respiratory 20 20 20 Rate Blood Pressure 147/74 149/72 149/72 Blood Pressure [Left] O2 Sat by Pulse 100 100 100 Oximetry 05/26/21 05/26/21 05/26/21 07:00 07:06 07:10 Temperature 99.6 F Pulse Rate 92 H 90 Respiratory 20 20 Rate Blood Pressure 140/68 141/71 Blood Pressure [Left] O2 Sat by Pulse 100 100 Oximetry 05/26/21 05/26/21 05/26/21 07:20 08:20 08:38 Temperature 98.7 F Pulse Rate 93 H 97 H 91 H Respiratory 20 20 Rate Blood Pressure 141/71 158/107 Blood Pressure 141/88 [Left] O2 Sat by Pulse 100 99 99 Oximetry 05/26/21 05/26/21 09:11 10:14 Temperature Pulse Rate 88 88 Respiratory 19 19 Rate Blood Pressure Blood Pressure 141/76 126/78 [Left] O2 Sat by Pulse 99 100 Oximetry Constitutional: no acute distress, other (sedated, orally intubated, no distress) Eyes: non-icteric ENT: oropharynx moist, other (ETT at 23cm CHAPIN) Neck: supple, no lymphadenopathy Effort: normal Ascultation: Bilateral: diminished breath sounds, rhonchi (lung bases anteriorly) Cardiovascular: irregular rhythm, other (S1,S2) Gastrointestinal: normoactive bowel sounds, soft, non-tender, non-distended Integumentary: normal Extremities: pink and warm, pulses normal Neurologic: other (sedated) Psychiatric: other (unable to assess) CBC and BMP: 05/27/21 02:11 05/27/21 02:11 ABG, PT/INR, D-dimer: ABG ABG pH 7.547 (7.320-7.450) H 05/26/21 04:00 POC ABG pCO2 32.2 mmHg (32.0-48.0) 05/26/21 04:00 POC ABG pO2 97.8 mmHg (83-108) 05/26/21 04:00 POC ABG HCO3 27.4 05/26/21 04:00 ABG O2 Saturation 97.9 (0-100) 05/26/21 04:00 PT/INR, D-dimer PT 15.0 Sec. (12.2-14.9) H 05/25/21 09:21 INR 1.13 (0.87-1.13) 05/25/21 09:21 D-Dimer > 83341 ng/mlDDU (0-234) H 05/25/21 09:21 Abnormal lab findings: Abnormal Labs 05/25/21 05/25/21 05/25/21 09:07 09:21 09:21 WBC 17.1 H MCV 106 H MCH 33 H RDW 15.6 H Seg Neutrophils # Man 10.1 H Lymphocytes # (Manual) 5.6 H PT 15.0 H APTT 44.3 H D-Dimer > 61019 H Heparin Anti-Xa Level ABG pH 7.116 L POC ABG pO2 ABG Hemoglobin ABG Oxyhemoglobin 93.7 L ABG Sodium ABG Potassium ABG Glucose 395 H Carboxyhemoglobin Carbon Dioxide Glucose Lactic Acid Calcium Ferritin AST ALT Lactate Dehydrogenase Troponin T Total Protein Albumin HDL Cholesterol Arterial Blood Glucose 395 H Arterial Blood Ionized Calcium 4.4 L Urine WBC (Auto) 05/25/21 05/25/21 05/25/21 09:21 09:21 09:21 WBC MCV MCH RDW Seg Neutrophils # Man Lymphocytes # (Manual) PT APTT D-Dimer Heparin Anti-Xa Level ABG pH POC ABG pO2 ABG Hemoglobin ABG Oxyhemoglobin ABG Sodium ABG Potassium ABG Glucose Carboxyhemoglobin Carbon Dioxide 10 L Glucose 423 H 424 H Lactic Acid Calcium 8.2 L Ferritin 321.6 H AST 162 H ALT 119 H Lactate Dehydrogenase 445 H Troponin T Total Protein 5.6 L Albumin 3.2 L HDL Cholesterol Arterial Blood Glucose Arterial Blood Ionized Calcium Urine WBC (Auto) 05/25/21 05/25/21 05/25/21 09:35 10:42 11:12 WBC MCV MCH RDW Seg Neutrophils # Man Lymphocytes # (Manual) PT APTT D-Dimer Heparin Anti-Xa Level ABG pH POC ABG pO2 ABG Hemoglobin ABG Oxyhemoglobin ABG Sodium ABG Potassium ABG Glucose Carboxyhemoglobin Carbon Dioxide Glucose Lactic Acid 16.70 H* 7.70 H* Calcium Ferritin AST ALT Lactate Dehydrogenase Troponin T Total Protein Albumin HDL Cholesterol Arterial Blood Glucose Arterial Blood Ionized Calcium Urine WBC (Auto) 11.0 H 05/25/21 05/25/21 05/25/21 14:07 15:19 19:04 WBC MCV MCH RDW Seg Neutrophils # Man Lymphocytes # (Manual) PT APTT D-Dimer Heparin Anti-Xa Level ABG pH POC ABG pO2 172.2 H ABG Hemoglobin ABG Oxyhemoglobin 98.7 H ABG Sodium 135.7 L ABG Potassium ABG Glucose 255 H Carboxyhemoglobin 0.3 L Carbon Dioxide Glucose Lactic Acid 3.90 H* Calcium Ferritin AST ALT Lactate Dehydrogenase Troponin T 0.226 H* D Total Protein Albumin HDL Cholesterol 64 H Arterial Blood Glucose 255 H Arterial Blood Ionized Calcium 3.8 L Urine WBC (Auto) 05/25/21 05/25/21 05/26/21 21:16 21:16 04:00 WBC MCV MCH RDW Seg Neutrophils # Man Lymphocytes # (Manual) PT APTT D-Dimer Heparin Anti-Xa Level 1.19 H ABG pH 7.547 H POC ABG pO2 ABG Hemoglobin 11.9 L ABG Oxyhemoglobin ABG Sodium 133.2 L ABG Potassium 3.1 L ABG Glucose 243 H Carboxyhemoglobin 0.3 L Carbon Dioxide Glucose Lactic Acid 2.50 H* Calcium Ferritin AST ALT Lactate Dehydrogenase Troponin T Total Protein Albumin HDL Cholesterol Arterial Blood Glucose 243 H Arterial Blood Ionized Calcium Urine WBC (Auto) 05/26/21 05/26/21 05:49 05:49 WBC MCV MCH RDW Seg Neutrophils # Man Lymphocytes # (Manual) PT APTT D-Dimer Heparin Anti-Xa Level ABG pH POC ABG pO2 ABG Hemoglobin ABG Oxyhemoglobin ABG Sodium ABG Potassium ABG Glucose Carboxyhemoglobin Carbon Dioxide Glucose 226 H Lactic Acid 2.30 H* Calcium 7.2 L Ferritin AST 111 H ALT 97 H Lactate Dehydrogenase Troponin T Total Protein 5.4 L Albumin 3.3 L HDL Cholesterol Arterial Blood Glucose Arterial Blood Ionized Calcium Urine WBC (Auto) Chest x-ray: image reviewed (Bilateral lower infiltrates) CT scan - chest: image reviewed (Bilateral infilatrates, no PE) Additional Studies: Microbiology-Gram stain- GPC in sputum Urine NGTD Blood cultures -NGTD Allied health notes reviewed: RT
[2021-05-26] MEDS: CEFEPIME/NS 2 GM/100 ML 2 GM/100 ML BAG IV SCH ×2 (11:25→23:34)
--- NOTE | 2021-05-26 12:22 | Progress Note ---
Assessment and Plan Respiratory failure chest CTA: no evidence of PE negative COVID serology Atrial fibrillation, paroxysmal pt has revered to sinus rhythm on IV heparin Syncope Out of the hospital asystolic arrest Hypertension Chronic seizure disorder Diabetes 05/2020 dobutamine thallium stress test showed normal perfusion study. 05/2020 echo showed normal left ventricular systolic function. Further cardiac evaluation will depend on clinical course. Subjective Date of service: 05/26/21 Interval history: Patient is intubated on the vent. Currently, surveillance monitor shows sinus rhythm, rate 86. Objective Vital Signs Temp Pulse Resp BP BP Pulse Ox 05/26/21 10:14 88 19 126/78 100 05/26/21 09:11 88 19 141/76 99 05/26/21 08:38 91 H 158/107 99 05/26/21 08:20 98.7 F 97 H 20 141/88 99 05/26/21 07:20 93 H 20 141/71 05/26/21 07:10 90 20 141/71 05/26/21 07:06 99.6 F 05/26/21 07:00 92 H 20 140/68 05/26/21 06:50 91 H 20 149/72 05/26/21 06:40 92 H 20 149/72 05/26/21 06:30 91 H 20 147/74 05/26/21 06:20 90 20 136/69 05/26/21 06:10 92 H 20 150/73 05/26/21 06:00 93 H 20 143/71 05/26/21 05:50 91 H 20 141/68 05/26/21 05:40 89 20 136/69 05/26/21 05:30 90 20 141/68 05/26/21 05:20 89 20 137/70 05/26/21 05:10 90 20 137/70 05/26/21 05:00 90 20 140/71 05/26/21 04:50 90 20 131/68 05/26/21 04:40 90 20 131/68 05/26/21 04:30 90 20 135/67 100 05/26/21 04:20 90 20 143/67 05/26/21 04:10 89 20 143/67 05/26/21 04:00 92 H 20 139/69 05/26/21 03:50 91 H 20 134/66 100 05/26/21 03:41 91 H 134/66 05/26/21 03:40 91 H 20 134/66 05/26/21 03:30 91 H 20 135/70 05/26/21 03:20 92 H 19 136/68 05/26/21 03:10 90 20 136/68 05/26/21 03:00 91 H 20 141/70 05/26/21 02:50 91 H 19 141/72 05/26/21 02:40 91 H 20 141/72 05/26/21 02:32 20 98 05/26/21 02:30 91 H 20 141/73 05/26/21 02:20 91 H 20 148/74 05/26/21 02:10 92 H 20 148/74 05/26/21 02:00 90 19 142/71 05/26/21 01:50 92 H 20 144/68 05/26/21 01:40 92 H 20 144/68 05/26/21 01:30 92 H 20 150/77 05/26/21 01:20 93 H 21 145/70 05/26/21 01:10 90 20 145/70 05/26/21 01:00 90 20 144/68 05/26/21 00:50 89 20 142/68 05/26/21 00:40 88 20 142/68 05/26/21 00:30 89 20 147/80 05/26/21 00:20 90 20 134/74 05/26/21 00:10 89 20 134/74 05/26/21 00:00 90 20 139/69 05/25/21 23:50 90 20 134/74 05/25/21 23:40 91 H 20 134/74 05/25/21 23:30 89 20 139/70 100 05/25/21 23:20 88 20 140/70 100 05/25/21 23:10 87 21 140/70 05/25/21 23:00 88 21 135/70 05/25/21 22:50 88 20 136/74 05/25/21 22:40 87 21 136/74 05/25/21 22:30 87 22 131/71 100 05/25/21 22:20 86 20 124/85 05/25/21 22:10 84 23 124/85 05/25/21 22:00 83 21 136/69 05/25/21 21:50 84 21 150/73 100 05/25/21 21:40 84 19 150/73 05/25/21 21:30 85 22 124/85 05/25/21 21:20 87 20 156/80 100 05/25/21 21:10 85 17 156/80 05/25/21 21:00 85 19 137/74 05/25/21 20:50 84 21 132/77 05/25/21 20:40 84 19 132/77 05/25/21 20:30 85 20 149/75 05/25/21 20:20 84 20 141/72 05/25/21 20:12 83 140/72 05/25/21 20:10 83 25 H 141/72 05/25/21 20:00 83 19 136/71 05/25/21 19:50 82 17 139/73 05/25/21 19:40 82 20 139/73 05/25/21 19:30 82 17 142/73 05/25/21 19:20 82 13 138/72 05/25/21 19:10 83 20 143/69 05/25/21 19:02 82 21 137/67 05/25/21 19:00 82 20 144/72 05/25/21 18:53 83 20 147/75 05/25/21 18:50 83 17 146/73 05/25/21 18:40 83 18 144/78 05/25/21 18:30 81 18 135/75 05/25/21 18:16 82 17 137/72 05/25/21 18:00 81 18 142/75 05/25/21 17:45 82 19 165/76 05/25/21 17:30 81 21 150/77 05/25/21 17:16 79 21 150/76 05/25/21 17:00 79 16 140/74 100 05/25/21 16:46 77 17 137/75 05/25/21 16:41 76 134/69 05/25/21 16:30 76 15 134/69 05/25/21 16:16 76 14 142/71 100 05/25/21 16:00 75 13 136/71 100 05/25/21 15:46 76 12 138/71 100 05/25/21 15:30 75 12 125/71 100 05/25/21 15:16 77 10 L 129/68 99 05/25/21 15:00 77 12 127/71 99 05/25/21 14:46 76 12 121/67 99 05/25/21 14:30 76 11 L 118/65 99 05/25/21 14:16 76 12 108/61 98 05/25/21 14:00 78 13 116/69 98 05/25/21 13:30 80 13 110/65 99 05/25/21 13:12 79 110/65 98 05/25/21 13:00 81 13 108/60 98 05/25/21 12:55 80 12 105/55 98 - Physical Examination General: Other (intubated on the vent) Cardiac: Positive: Reg Rate and Rhythm Extremities: Absent: edema - Labs and Meds Cardiac Enzymes 05/26/21 Range/Units 05:49 AST 111 H (5-40) units/L Lipids 05/25/21 Range/Units 15:19 Triglycerides 72 (2-149) mg/dL Cholesterol 198 (50-199) mg/dL HDL Cholesterol 64 H (40-59) mg/dL Cholesterol/HDL Ratio 3.09 % Comprehensive Metabolic Panel 05/26/21 Range/Units 05:49 Sodium 140 (137-145) mmol/L Potassium 3.9 (3.6-5.0) mmol/L Chloride 100.4 (98-107) mmol/L Carbon Dioxide 30 D (22-30) mmol/L BUN 9 (7-17) mg/dL Creatinine 0.6 (0.6-1.2) mg/dL Glucose 226 H (65-100) mg/dL Calcium 7.2 L (8.4-10.2) mg/dL AST 111 H (5-40) units/L ALT 97 H (7-56) units/L Alkaline Phosphatase 88 (35-129) units/L Total Protein 5.4 L (6.3-8.2) g/dL Albumin 3.3 L (3.9-5) g/dL
[2021-05-26] MEDS: LORazepam 2 MG/ML VIAL IV PRN (12:50)
--- NOTE | 2021-05-26 13:30 | Electrocardiograph Report ---
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
--- NOTE | 2021-05-26 13:31 | Electrocardiograph Report ---
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
--- NOTE | 2021-05-26 14:39 | Progress Note ---
Assessment and Plan 65-year-old female, history of nonepileptic spells, PTSD, closed head injury, hypertension, diabetes, CAD, presents to the ED following cardiac arrest. EMS states Patient collapsed and became unresponsive. Patient was pulseless and apneic. Rhythm was asystole. Patient was intubated by EMS. She was given epi x2. ACLS times approximately 10 minutes followed by return of pulses. Accu- Chek in the 200s. With initial rhythm check here in ED, patient was pulseless, so ACLS restarted. Patient has return of pulse and noted to be in atrial fib, initiated on iv keppra and heparin drip. Assessment and plan -- s/p cardiac arrest Pt on NSR on tele, cardiology consulted, ordered 2d echo -- Acute hypoxemic respiratory failure Patient intubated and on ventilatory support. Critical care team consulted. Wean vent as tolerated, daily spontaneous breathing trial, sedation holiday, supportive care, arterial blood gas per protocol. --SIRS, likely from cardiac arrest and seizure s/p abx, all Cx so far neg, monitor off abx --COVID PUI, r/o with negative test --Possible Anoxic brain injury Supportive care, neuro check, repeat CT scan brain when medically stable. Consulted Neurology -- Atrial fibrillation with RVR, paroxysmal Cardiology team consulted, continue therapeutic anticoagulation as per car diology team with heparin drip, supportive care., Rate control. -- Metabolic acidosis IV fluid resuscitation therapy, follow BMP --Tonic clonic Seizure Neuro check, antiepileptic therapy with Keppra, neuro consult, EEG ordered -- DVT prophylaxis SCD to bilateral lower extremities while in bed, continue therapeutic anticoagulation -- patient is full code, patient son Antwon Higginbotham acknowledges understanding and agreement with care plan, The high probability of a clinically significant, sudden or life threatening deterioration of the [multiple] system(s) required my full and direct attention, intervention and personal management. The aggregate critical care time was [40] minutes. This time is in addition to time spent performing reported procedures but includes the following: [x] Data Review and interpretation [x] Patient assessment and monitoring of vital signs [x] Documentation [x] Medication orders and management Daily clinical course: 05/26/21: Updated family at the bedside, Covid test is negative. Will order EEG and neuro consult. Remains intubated, follow clinically. Sedated on Midazolam and Propofol, just received one dose of Lorazepam for witnessed seizure by RN. NSR now, on heparin drip Subjective Date of service: 05/26/21 Interval history: Patient seen and examined. Medical records and medication list reviewed. Pt intubated and sedated Sons at bedside - updated negative for COVID Discussed plan of care at bedside with patient.s RN and CC attending. Objective - Exam Narrative Exam: GENERAL: well-developed elderly -[place] female lying on bed intubated and sedated HEENT: Normocephalic. Atraumatic. No conjunctival congestion or icterus. Patie nt has moist mucous membranes. NECK: Supple. Trachea midline. CHEST/LUNGS: Clear to auscultated bilaterally, breathing nonlabored. No wheezes crackles or rhonchi. HEART/CARDIOVASCULAR: Regular in rate and rhythm. S1 and S2 positive. ABDOMEN: Abdomen is soft, nontender. Patient has normal bowel sounds. SKIN: There is no rash. Warm and dry. NEURO: Sedated MUSCULOSKELETAL: No joint effusion or tenderness. EXTRIMITY: No edema, no cyanosis or clubbing. PSYCH: Sedated - Constitutional Vitals: Vital Signs - 12hr 05/26/21 05/26/21 05/26/21 02:40 02:50 03:00 Temperature Pulse Rate 91 H 91 H 91 H Respiratory 20 19 20 Rate Blood Pressure 141/72 141/72 141/70 Blood Pressure [Left] O2 Sat by Pulse 100 100 100 Oximetry 05/26/21 05/26/21 05/26/21 03:10 03:20 03:30 Temperature Pulse Rate 90 92 H 91 H Respiratory 20 19 20 Rate Blood Pressure 136/68 136/68 135/70 Blood Pressure [Left] O2 Sat by Pulse 100 100 100 Oximetry 05/26/21 05/26/21 05/26/21 03:40 03:41 03:50 Temperature Pulse Rate 91 H 91 H 91 H Respiratory 20 20 Rate Blood Pressure 134/66 134/66 134/66 Blood Pressure [Left] O2 Sat by Pulse 100 100 100 Oximetry 05/26/21 05/26/21 05/26/21 04:00 04:10 04:20 Temperature Pulse Rate 92 H 89 90 Respiratory 20 20 20 Rate Blood Pressure 139/69 143/67 143/67 Blood Pressure [Left] O2 Sat by Pulse 100 100 100 Oximetry 05/26/21 05/26/21 05/26/21 04:30 04:40 04:50 Temperature Pulse Rate 90 90 90 Respiratory 20 20 20 Rate Blood Pressure 135/67 131/68 131/68 Blood Pressure [Left] O2 Sat by Pulse 100 100 100 Oximetry 05/26/21 05/26/21 05/26/21 05:00 05:10 05:20 Temperature Pulse Rate 90 90 89 Respiratory 20 20 20 Rate Blood Pressure 140/71 137/70 137/70 Blood Pressure [Left] O2 Sat by Pulse 100 100 100 Oximetry 05/26/21 05/26/21 05/26/21 05:30 05:40 05:50 Temperature Pulse Rate 90 89 91 H Respiratory 20 20 20 Rate Blood Pressure 141/68 136/69 141/68 Blood Pressure [Left] O2 Sat by Pulse 100 100 100 Oximetry 05/26/21 05/26/21 05/26/21 06:00 06:10 06:20 Temperature Pulse Rate 93 H 92 H 90 Respiratory 20 20 20 Rate Blood Pressure 143/71 150/73 136/69 Blood Pressure [Left] O2 Sat by Pulse 100 100 100 Oximetry 05/26/21 05/26/21 05/26/21 06:30 06:40 06:50 Temperature Pulse Rate 91 H 92 H 91 H Respiratory 20 20 20 Rate Blood Pressure 147/74 149/72 149/72 Blood Pressure [Left] O2 Sat by Pulse 100 100 100 Oximetry 05/26/21 05/26/21 05/26/21 07:00 07:06 07:10 Temperature 99.6 F Pulse Rate 92 H 90 Respiratory 20 20 Rate Blood Pressure 140/68 141/71 Blood Pressure [Left] O2 Sat by Pulse 100 100 Oximetry 05/26/21 05/26/21 05/26/21 07:20 08:20 08:38 Temperature 98.7 F Pulse Rate 93 H 97 H 91 H Respiratory 20 20 Rate Blood Pressure 141/71 158/107 Blood Pressure 141/88 [Left] O2 Sat by Pulse 100 99 99 Oximetry 05/26/21 05/26/21 05/26/21 09:11 10:14 11:41 Temperature Pulse Rate 88 88 87 Respiratory 19 19 Rate Blood Pressure 159/75 Blood Pressure 141/76 126/78 [Left] O2 Sat by Pulse 99 100 99 Oximetry 05/26/21 05/26/21 12:21 14:09 Temperature Pulse Rate 88 88 Respiratory 19 98 H Rate Blood Pressure Blood Pressure 137/87 137/81 [Left] O2 Sat by Pulse 99 Oximetry - Labs CBC & Chem 7: 06/01/21 04:58 06/01/21 04:58 Labs: Abnormal lab results 05/25/21 05/25/21 05/25/21 Range/Units 09:21 10:42 14:07 Seg Neutrophils # Man 10.1 H (1.8-7.7) K/mm3 Lymphocytes # (Manual) 5.6 H (1.2-5.4) K/mm3 Heparin Anti-Xa Level (0.3-0.7) U.I./ml ABG pH (7.320-7.450) POC ABG pO2 (83-108) mmHg ABG Hemoglobin (12.0-17.5) ABG Oxyhemoglobin (94-98) ABG Sodium (136.0-145.0) mmol/L ABG Potassium (3.40-4.50) mmol/L ABG Glucose (65-95) mg/dL Carboxyhemoglobin (0.5-1.5) Glucose (65-100) mg/dL Lactic Acid 3.90 H* (0.7-2.0) mmol/L Calcium (8.4-10.2) mg/dL AST (5-40) units/L ALT (7-56) units/L Troponin T (0.00-0.029) ng/mL Total Protein (6.3-8.2) g/dL Albumin (3.9-5) g/dL HDL Cholesterol (40-59) mg/dL Arterial Blood Glucose (65-95) mg/dL Arterial Blood Ionized Calcium (4.6-5.3) mg/dL Urine WBC (Auto) 11.0 H (0.0-6.0) /HPF 05/25/21 05/25/21 05/25/21 Range/Units 15:19 19:04 21:16 Seg Neutrophils # Man (1.8-7.7) K/mm3 Lymphocytes # (Manual) (1.2-5.4) K/mm3 Heparin Anti-Xa Level (0.3-0.7) U.I./ml ABG pH (7.320-7.450) POC ABG pO2 172.2 H (83-108) mmHg ABG Hemoglobin (12.0-17.5) ABG Oxyhemoglobin 98.7 H (94-98) ABG Sodium 135.7 L (136.0-145.0) mmol/L ABG Potassium (3.40-4.50) mmol/L ABG Glucose 255 H (65-95) mg/dL Carboxyhemoglobin 0.3 L (0.5-1.5) Glucose (65-100) mg/dL Lactic Acid 2.50 H* (0.7-2.0) mmol/L Calcium (8.4-10.2) mg/dL AST (5-40) units/L ALT (7-56) units/L Troponin T 0.226 H* D (0.00-0.029) ng/mL Total Protein (6.3-8.2) g/dL Albumin (3.9-5) g/dL HDL Cholesterol 64 H (40-59) mg/dL Arterial Blood Glucose 255 H (65-95) mg/dL Arterial Blood Ionized Calcium 3.8 L (4.6-5.3) mg/dL Urine WBC (Auto) (0.0-6.0) /HPF 05/25/21 05/26/21 05/26/21 Range/Units 21:16 04:00 05:49 Seg Neutrophils # Man (1.8-7.7) K/mm3 Lymphocytes # (Manual) (1.2-5.4) K/mm3 Heparin Anti-Xa Level 1.19 H (0.3-0.7) U.I./ml ABG pH 7.547 H (7.320-7.450) POC ABG pO2 (83-108) mmHg ABG Hemoglobin 11.9 L (12.0-17.5) ABG Oxyhemoglobin (94-98) ABG Sodium 133.2 L (136.0-145.0) mmol/L ABG Potassium 3.1 L (3.40-4.50) mmol/L ABG Glucose 243 H (65-95) mg/dL Carboxyhemoglobin 0.3 L (0.5-1.5) Glucose (65-100) mg/dL Lactic Acid 2.30 H* (0.7-2.0) mmol/L Calcium (8.4-10.2) mg/dL AST (5-40) units/L ALT (7-56) units/L Troponin T (0.00-0.029) ng/mL Total Protein (6.3-8.2) g/dL Albumin (3.9-5) g/dL HDL Cholesterol (40-59) mg/dL Arterial Blood Glucose 243 H (65-95) mg/dL Arterial Blood Ionized Calcium (4.6-5.3) mg/dL Urine WBC (Auto) (0.0-6.0) /HPF 05/26/21 Range/Units 05:49 Seg Neutrophils # Man (1.8-7.7) K/mm3 Lymphocytes # (Manual) (1.2-5.4) K/mm3 Heparin Anti-Xa Level (0.3-0.7) U.I./ml ABG pH (7.320-7.450) POC ABG pO2 (83-108) mmHg ABG Hemoglobin (12.0-17.5) ABG Oxyhemoglobin (94-98) ABG Sodium (136.0-145.0) mmol/L ABG Potassium (3.40-4.50) mmol/L ABG Glucose (65-95) mg/dL Carboxyhemoglobin (0.5-1.5) Glucose 226 H (65-100) mg/dL Lactic Acid (0.7-2.0) mmol/L Calcium 7.2 L (8.4-10.2) mg/dL AST 111 H (5-40) units/L ALT 97 H (7-56) units/L Troponin T (0.00-0.029) ng/mL Total Protein 5.4 L (6.3-8.2) g/dL Albumin 3.3 L (3.9-5) g/dL HDL Cholesterol (40-59) mg/dL Arterial Blood Glucose (65-95) mg/dL Arterial Blood Ionized Calcium (4.6-5.3) mg/dL Urine WBC (Auto) (0.0-6.0) /HPF HEART Score - HEART Score Troponin: Troponin T 0.226 ng/mL (0.00-0.029) H* D 05/25/21 15:19
--- NOTE | 2021-05-26 15:39 | Consultation ---
DATE OF CONSULTATION: 05/25/2021 CONSULTING PHYSICIAN: Dr. Jus Major. REASON FOR CONSULTATION: Cardiac arrest with return of spontaneous circulation, acute respiratory failure, on mechanical ventilatory support. CHIEF COMPLAINT AND HISTORY OF PRESENT ILLNESS: The patient is a now 65-year-old female with past medical history significant amongst other things for a diagnosis of coronary artery disease, nicotine dependence, and seizure disorder, who presented to the Emergency Room for evaluation. According to the patient's son, based on the records, she was in her usual state of health on the day prior to admission. She woke up from sleep on the morning of admission complaining that she had experienced one of her pseudoseizures. Her son reports that she began hyperventilating, screaming "help me." EMS was notified. When they arrived, they found her in distress. She subsequently lost consciousness. She was found to have had an asystolic cardiac arrest. ACLS protocol was started. CPR was started. There was return of perfusion and the breathing. She was brought into the Emergency Room at [facility]. In the Emergency Room, she suffered another asystole arrest. Again, they were able to get her back. She was intubated, found to have acute hypoxemic respiratory failure, unable to protect her airway prior to intubation. Post-intubation, she was found to be in fibrillation with rapid ventricular response. She had severe sepsis. She had a significant toxic metabolic encephalopathy and we are asked to assist with management. When I stopped by to see her, she was on mechanical ventilatory support on the assist control mode of mechanical ventilation, tidal volume set at 450, rate of 20 and PEEP of 10 on 100% FIO2. She was having myoclonic type jerks/seizure activity intermittently during my quick evaluation in the Emergency Room. I do not have any history of vomiting or overt aspiration, although I cannot rule that out. This really is as much of the history of presentation as I have. PAST MEDICAL HISTORY: Again, hypertension, coronary artery disease, nicotine dependence, diabetes, seizure disorder, hyperlipidemia. PAST SURGICAL HISTORY: She has had bladder surgery and she has had coronary artery stents placed. MEDICATIONS: She was on at the time I stopped by to see her according to the medication administration record included the following: Tylenol 650 mg p.o. q. 6 hours p.r.n. mild pain or fevers. All p.o. meds via the feeding tube, cefepime 2 grams IV q. 12 hours. Heparin was going ACS protocol, IV heparin, Dilaudid 0.25 mg IV p.r.n. moderate pain. Levophed drip had been ordered earlier to start at 2 mcg per minute, Percocet 5/325 one tablet p.o. q. 12 hours p.r.n. moderate pain. Propofol drip was going at 5 mcg per kilogram per minute. She was on a D5W with 3 amps of bicarbonate liter drip at 125 mL per hour. ALLERGIES: No known drug allergies. DIET: Well built lady. Acute weight loss or gain history is unknown. SOCIAL HISTORY: Lives in the community. Described as being nicotine dependent. Further history is unobtainable. According to records, she is . FAMILY HISTORY: There is a family history of diabetes and hypertension. REVIEW OF SYSTEMS: Unobtainable secondary to patient's medical and mental condition. PHYSICAL EXAMINATION: VITAL SIGNS: At presentation in the Emergency Room, review of vital signs show that I have no temperature for my review here. Her pulse at presentation was 120, respiratory rate is 15, blood pressure 134/57, O2 sats were 96%, inspired oxygen concentration at that time was not recorded. When I saw her, her O2 sats were 100% on 100% FIO2. GENERAL: She is an elderly looking lady. Normocephalic, atraumatic. Resting in bed with intermittent myoclonic type jerks/seizures at the time of my evaluation. HEAD, EYES, EARS, NOSE AND THROAT: Anicteric. No conjunctival erythema. Oropharynx was moist. Endotracheal tube was placed around 23 cm at the lips. NECK: No gross jugular venous distention, no thyromegaly. Grossly, there were no palpable lymph nodes in the supraclavicular or submandibular lymph node chains. LUNGS: Auscultation of both lung mason are mostly clear. Scant rhonchi, no wheezing. HEART: Sounds 1 and 2 are heard at the time of my evaluation, regular rate and rhythm at the time of my evaluation without overt rubs or murmurs. ABDOMEN: Soft, full, protuberant. Bowel sounds are positive, nontender, no palpable hepatosplenomegaly. EXTREMITIES: Without overt digital clubbing or cyanosis. She does have trace pedal edema. Pedal pulses are 2+ bilaterally. NEUROLOGIC: Pupils were equal, round, about 3 mm, sluggishly reactive to light. Extraocular muscle movements cannot be assessed. She had intermittent myoclonic type jerks. She was not responsive to verbal or tactile stimuli except to have occasional myoclonic type jerks. SKIN: Normal turgor in the areas I examined without overt cellulitis or rash. Please see the wound care nurses' notes for full description of the skin. PSYCHIATRIC: Mood and affect could not be assessed. She was sedated and encephalopathic. LABORATORY DATA: From my review are as follows: Admission white cell count 17,100, hemoglobin 12.4, hematocrit 39.9, platelet count 272. Manual differential is pending. INR 1.13. D-dimer was greater than 10,000. Arterial blood gas showed a pH of 7.12, pCO2 of 41, pO2 of 106 on 100% FiO2 presumably on the above-mentioned vent settings. Serum sodium was 144, potassium 4.3, chloride 106, bicarbonate was 10, BUN was 11, creatinine was 1.0, glucose was 424. Lactic acid level was 7.7, now within normal limits. Ferritin 322, AST was up at 162, ALT 119, albumin 3.2. Troponin initially within normal limits, peaked at 0.226 for now. LDH was elevated. Urinalysis showed negative for nitrites and leukocyte esterase, moderate blood. Coronavirus PCR has come back negative. Two sets of blood cultures are no growth to date. Chest x-ray was done. It shows diffuse infiltrates, probably in an early pulmonary edema pattern. Endotracheal tube tip is in good position, borderline cardiomegaly. She has some clips over the right axilla, may suggest some surgical intervention over there. No gross pneumothorax, no gross bony fractures that I can see. Mild interstitial edema bilaterally. A CT scan was also done of her head. I have reviewed the radiologist's interpretation. No focal mass, hemorrhage, no acute process. A CT of the chest was done. It is a contrast CT scan, appears to be a CT angiogram, no gross filling defects that I can see consistent with pulmonary edema. She has dense consolidation dependent, really atelectasis involving both lungs, right greater than left. Lung windows do show diffuse ground-glass opacification consistent with pulmonary edema. No gross pneumothorax, no gross bony fracture that I can see. Official read, same thing. At the time of that CT angio, ET tube is above the pari, but barely perhaps about 2 cm above the pari. ASSESSMENT: 1. Acute hypoxemic respiratory failure. 2. Bilateral pneumonia. 3. Bilateral atelectasis. 4. Acute toxic metabolic encephalopathy. 5. Possible status epilepticus. 6. History of diabetes. 7. Coronary artery disease. 8. Cardiac arrest with return of spontaneous circulation. 9. Hyperlipidemia. 10. History of seizures. 11. Severe metabolic acidosis. 12. Leukocytosis. 13. Lactic acidosis at presentation. 14. Elevated serum transaminases. 15. Non-ST elevation myocardial infarction. 16. Tobacco use disorder. PLAN: We will keep her on full mechanical ventilatory support. I will repeat the arterial blood gases and make changes from that point. Oxygen will be weaned to keep sats greater than or equal to about 90%. Aspiration precautions, ventilator-associated pneumonia bundle has been introduced. Bronchodilators, routine pulmonary hygiene will be per the respiratory therapy. Glycemic control will be for target blood glucose of 140-180 mg/dL while critically ill. We will continue with empiric cefepime therapy. I will; however, add azithromycin for possible community-acquired pneumonia. I do feel that there may be an element of aspiration there or perhaps just atelectasis from her cardiac arrest. I will defer to Cardiology in terms of management of the acute coronary syndrome. Vasopressors will be ordered as necessary to keep mean arterial pressures greater than or equal to about 65 mmHg. She is fully anticoagulated. I will be putting her on PPI therapy for gastrointestinal prophylaxis. Enteral nutrition will be the feeding modality of choice. Analgesia will be per the CPOT score. Flu and pneumonia vaccination will be addressed per protocol. Thank you very much for the consult, Dr. Major. We will follow along and make further recommendations. As she is critically ill at very high risk of from cardiopulmonary system decompensation, neurology evaluation is appropriate. At this time, I spent about 35-40 minutes of critical care time without overlap and excluding any procedural time that may be necessary. TID: [id number] RECEIPT: [id number] VICENTE/DANA/SHERRILL
[2021-05-26] MEDS: HEPARIN/ 0.45% NACL DRIP 25,000 UNIT/500 ML BAG IV SCH (18:04)
--- NOTE | 2021-05-26 20:49 | XRay Report ---
ABDOMEN 1 VIEW(S) INDICATION / CLINICAL INFORMATION: feeding tube placement. COMPARISON: None available. FINDINGS: TUBES / LINES: There is an NG tube with tip in the proximal to mid stomach. An incompletely visualize d right femoral line is also noted with tip near the inferior aspect of the right SI joint. BOWEL GAS PATTERN: No significant abnormality. FREE AIR / EXTRALUMINAL GAS: None seen. ADDITIONAL FINDINGS: No significant additional findings. IMPRESSION: 1. Support devices as above. Signer Name: Rios Garcia MD Signed: 05/26/2021 8:45 PM Workstation Name: [id number]
[2021-05-26] MEDS: ACETAMINOPHEN 325 MG TAB PO PRN (23:35)
[2021-05-27 02:33] LABS: Basophils % (Auto) 0.2 % (0.0-1.8); Eosinophils % (Auto) 0.1 % (0.0-4.3); Hematocrit 32.2 % (30.3-42.9); Hemoglobin 10.9 gm/dl (10.1-14.3); Lymphocytes # (Auto) 3.2 K/mm3 (1.2-5.4); Lymphocytes % (Auto) 22.7 % (13.4-35.0); Mean Corpuscular HGB Conc 34 % (30-34); Mean Corpuscular Volume 99 fl (79-97); Platelet Count 195 K/mm3 (140-440); Red Blood Count 3.27 M/mm3 (3.65-5.03); Red Cell Distribution Width 15.3 % (13.2-15.2)
[2021-05-27] MEDS: SODIUM BICARBONATE 150 MEQ in DEXTROSE 5% IN WATER 1,000 ML IV SCH (02:50)
[2021-05-27 02:57] LABS: Blood Urea Nitrogen 6 mg/dL (7-17); Calcium 8.1 mg/dL (8.4-10.2); Hemolysis Index 2
[2021-05-27 03:11] LABS: BUN/Creatinine Ratio 10
--- NOTE | 2021-05-27 03:16 | XRay Report ---
XR chest 1V ap INDICATION / CLINICAL INFORMATION: follow up respiratory failure. COMPARISON: Radiograph from yesterday. FINDINGS: SUPPORT DEVICES: Unchanged. HEART /PULMONARY VASCULATURE: Unchanged. LUNGS / PLEURA: Lung parenchyma is not significantly changed. No pneumothorax. IMPRESSION: 1. No significant interval change. Signer Name: Tyrese Farfan MD Signed: 05/27/2021 3:12 AM Workstation Name: [id number]
[2021-05-27] MEDS ORDERED: POTASSIUM CHLORIDE 20 MEQ PACKET FEEDTUBE ONE (03:30)
[2021-05-27] MEDS: POTASSIUM CHLORIDE 20 MEQ 20 MEQ/100 ML BAG IV SCH ×2 (06:09→07:10)
[2021-05-27] MEDS: levETIRAcetam 500 MG in DEXTROSE 5% IN WATER 100 ML IV SCH ×2 (07:56→20:28)
[2021-05-27] MEDS: ACETAMINOPHEN 325 MG TAB PO PRN (07:56)
[2021-05-27] MEDS: MIDAZOLAM 100 MG in SODIUM CHLORIDE 0.9% 80 ML IV SCH (08:43)
[2021-05-27] MEDS: FAMOTIDINE 20 MG/2 ML INJ IV SCH ×2 (09:25→21:36)
[2021-05-27] MEDS: SENNOSIDES/DOCUSATE SODIUM 8.6/50 MG TAB FEEDTUBE SCH ×2 (09:26→21:36)
--- NOTE | 2021-05-27 09:52 | Progress Note ---
Assessment and Plan Acute hypoxemic respiratory failure on MVS s/p Cardiopulmonary arrest wtih ROSC h/o Seizure disorder Sepsis Toxic metabolic encephalopathy, possible anoxia Atrial fibrillation with RVR Metabolic acidosis Bilateral lower lobe infiltrates on imaging -daily SAt and SBT -Start antihypertensives, IV Labatelol prn - continue to titrate supplemental oxygen to keep SpO2 88-90% - VAP bundle addressed, aspiration precautions HOB >30 - continue lung protective strategies - continue bronchodilators (MARY & LABA) with pulmonary hygiene per RT - daily assessment for readiness to wean, SAT and SBT -EEG ordered and Neurology consult per hospitalist service -Accuchecks with glycemic control per SSI (While critically ill target blood glucose of 140-180 mg/dL; avoid hypoglycemia) -Enteric nutritional support - sedation prn for target RASS 0 to -1 - avoid nephrotoxins, renally dose all medications -Conservative fluid management, currently on bicarbonate infusions -ABG, CXR as clinically indicated - Empiric antibiotics ( Cefepime) for sepsis. De-escalate based on culture data and clinical response -Follow cultures( no growth to date, Sputum GPC in pairs) - prn analgesia per CPOT score - Maintenance of sleep-wake cycle, avoid delirium - Stress ulcer prophyalxis- Famotidine -VTE prophylaxis, on therapeutic heparin fro Atrial fibrillation - mobility, off loading, frequent turning per facility protocol for pressure ulcer prevention - Monitor hemodynamics closely - continue other care per attending / other consultants COVID SPECIFIC INTERVENTIONS -Negative CONDITION: CRITICAL PROGNOSIS: GUARDED CODE STATUS: FULL CODE Discussed extensively with the son at the bedside and answered all his questions Discussed with hospitalist service The high probability of a clinically significant, sudden or life-threatening deterioration of the [respiratory, cardiovascular, neurologic] system(s) required my full and direct attention, intervention and personal management. The aggregate critical care time was [35] minutes without overlap. Time includes spent on; [x] Data Review and interpretation [x] Patient assessment and monitoring of vital signs [x] Documentation [x] Medication orders and management Subjective Date of service: 05/27/21 Interval history: Summary per medical records. Information verified at the bedside with her son 65 YO Female with HTN, MN, CAD S/P Stent Placement, Nicotine Dependence, DM, HLD, Seizure Disorder presents to ED for evaluation. Patient is intubated and ambulatory support at the time my evaluation is unable to provide history. Patient agitated when EMS staff, ED staff, as well as the patient's son who was made available by telephone for interview. As per son the patient was in her usual state of health on the day prior to admission. 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 Patient son reports that patient began hyperventilating and screaming "help me, help me. EMS was notified and upon arrival the patient was found to be in distress and subsequently lost consciousness and was found to have asystole on janitor head. Patient was treated" with ACLS protocol with return of perfusing cardiac rhythm. The patient was transported to [facility] for further care and evaluation of the aforementioned symptoms. The patient was seen and evaluated in the emergency department and sh ortly upon arrival to the emergency department the patient experienced repeated asystole. Patient was again treated" with ACLS protocol with eventual return of perfusing cardiac rhythm. Patient was found to have acute hypoxemic respiratory failure and was unable to protect her airway and was subsequently intubated while in the emergency department. The patient was also found to have atrial fibrillation with rapid ventricular response, metabolic acidosis, sepsis, toxic metabolic encephalopathy and suspected anoxic brain injury. Patient admitted to ICU and initiated on sepsis protocol. Follow up for: acute hypoxemic resp failure; s/p cardiopulmonary arrest with ROSC; Seizure disorder Patient seen and examined. Vitals, labs, medications, chart reviewed. Son at the bedside. No fevers, no vomiting. 05/26/2021 Orally intubated on MVS, OGT in place Sedated on Midazolam and Propofol, just received one dose of Lorazepam for witnessed seizure by RN On bicarbonate infusion Discussed with respiratory and nursing 05/27/2021 Remains on MVS ACVC 20/450/+10/40% ABG 7.35/32/97.8/27.4 Gets hypertensive when sedation is weaned down. Remains on heparin infusion for Afib On Cefepime Discussed with respiratory and nursing staff Objective Vital Signs - 12hr 05/26/21 05/26/21 05/26/21 22:00 22:21 22:30 Temperature Pulse Rate 88 Pulse Rate [ From Monitor] Pulse Rate [ 84 None] Respiratory 20 20 Rate Blood Pressure 161/69 128/76 174/76 O2 Sat by Pulse 98 99 Oximetry 05/26/21 05/26/21 05/26/21 22:45 23:00 23:15 Temperature Pulse Rate 85 82 81 Pulse Rate [ From Monitor] Pulse Rate [ None] Respiratory 20 20 20 Rate Blood Pressure 174/76 155/69 155/69 O2 Sat by Pulse 99 100 100 Oximetry 05/26/21 05/26/21 05/26/21 23:30 23:33 23:45 Temperature 101.5 F H Pulse Rate 78 83 Pulse Rate [ From Monitor] Pulse Rate [ None] Respiratory 20 20 Rate Blood Pressure 156/71 156/71 O2 Sat by Pulse 100 99 Oximetry 05/26/21 05/27/21 05/27/21 23:49 00:00 00:04 Temperature Pulse Rate 80 77 75 Pulse Rate [ From Monitor] Pulse Rate [ None] Respiratory 20 20 Rate Blood Pressure 156/71 160/68 160/68 O2 Sat by Pulse 100 100 100 Oximetry 05/27/21 05/27/21 05/27/21 00:15 00:30 00:45 Temperature Pulse Rate 76 77 71 Pulse Rate [ From Monitor] Pulse Rate [ None] Respiratory 20 20 20 Rate Blood Pressure 160/68 145/61 145/61 O2 Sat by Pulse 99 98 98 Oximetry 05/27/21 05/27/21 05/27/21 00:58 01:00 01:15 Temperature Pulse Rate 75 72 71 Pulse Rate [ From Monitor] Pulse Rate [ None] Respiratory 20 20 Rate Blood Pressure 150/64 O2 Sat by Pulse 98 98 Oximetry 05/27/21 05/27/21 05/27/21 01:30 01:45 02:00 Temperature Pulse Rate 74 81 81 Pulse Rate [ From Monitor] Pulse Rate [ None] Respiratory 20 20 20 Rate Blood Pressure 161/68 161/68 169/70 O2 Sat by Pulse 98 98 98 Oximetry 05/27/21 05/27/21 05/27/21 02:15 02:30 02:45 Temperature Pulse Rate 88 86 98 H Pulse Rate [ From Monitor] Pulse Rate [ None] Respiratory 20 20 25 H Rate Blood Pressure 169/70 170/74 170/74 O2 Sat by Pulse 99 99 99 Oximetry 05/27/21 05/27/21 05/27/21 03:00 03:15 03:19 Temperature 99.9 F H Pulse Rate 84 84 Pulse Rate [ From Monitor] Pulse Rate [ None] Respiratory 20 20 Rate Blood Pressure 168/67 168/67 O2 Sat by Pulse 98 98 Oximetry 05/27/21 05/27/21 05/27/21 03:31 03:45 03:56 Temperature Pulse Rate 108 H 95 H 85 Pulse Rate [ From Monitor] Pulse Rate [ None] Respiratory 27 H 20 Rate Blood Pressure 210/87 210/87 210/87 O2 Sat by Pulse 98 97 97 Oximetry 05/27/21 05/27/21 05/27/21 04:00 04:15 04:30 Temperature Pulse Rate 83 85 86 Pulse Rate [ From Monitor] Pulse Rate [ None] Respiratory 20 20 20 Rate Blood Pressure 167/69 167/69 183/75 O2 Sat by Pulse 97 97 98 Oximetry 05/27/21 05/27/21 05/27/21 04:45 05:01 05:15 Temperature Pulse Rate 88 109 H 89 Pulse Rate [ From Monitor] Pulse Rate [ None] Respiratory 20 32 H 20 Rate Blood Pressure 183/75 204/93 204/93 O2 Sat by Pulse 98 97 99 Oximetry 05/27/21 05/27/21 05/27/21 05:30 05:45 06:00 Temperature Pulse Rate 85 87 87 Pulse Rate [ From Monitor] Pulse Rate [ None] Respiratory 20 20 20 Rate Blood Pressure 176/75 176/75 164/72 O2 Sat by Pulse 98 98 98 Oximetry 05/27/21 05/27/21 05/27/21 06:15 06:30 06:45 Temperature Pulse Rate 84 86 89 Pulse Rate [ From Monitor] Pulse Rate [ None] Respiratory 20 20 20 Rate Blood Pressure 164/72 173/77 173/77 O2 Sat by Pulse 98 98 98 Oximetry 05/27/21 05/27/21 05/27/21 07:00 07:15 07:30 Temperature 100.3 F H Pulse Rate 90 87 85 Pulse Rate [ From Monitor] Pulse Rate [ None] Respiratory 20 20 20 Rate Blood Pressure 169/79 169/79 181/80 O2 Sat by Pulse 99 100 100 Oximetry 05/27/21 05/27/21 05/27/21 07:45 08:00 08:15 Temperature 100.2 F H Pulse Rate 88 85 85 Pulse Rate [ 86 From Monitor] Pulse Rate [ 86 None] Respiratory 20 20 20 Rate Blood Pressure 181/80 185/80 185/80 O2 Sat by Pulse 100 100 100 Oximetry 05/27/21 05/27/21 05/27/21 08:30 08:43 08:45 Temperature Pulse Rate 87 82 84 Pulse Rate [ From Monitor] Pulse Rate [ None] Respiratory 20 20 Rate Blood Pressure 180/75 180/75 181/80 O2 Sat by Pulse 100 100 Oximetry 05/27/21 09:00 Temperature Pulse Rate 80 Pulse Rate [ From Monitor] Pulse Rate [ None] Respiratory 20 Rate Blood Pressure 159/65 O2 Sat by Pulse 99 Oximetry Constitutional: no acute distress, other (sedated, orally intubated, no distress) Eyes: non-icteric ENT: oropharynx moist, other (ETT at 23cm [place]) Neck: supple, no lymphadenopathy Effort: normal Ascultation: Bilateral: diminished breath sounds, rhonchi (lung bases anteriorly) Cardiovascular: irregular rhythm, other (S1,S2) Gastrointestinal: normoactive bowel sounds, soft, non-tender, non-distended Integumentary: normal Extremities: pink and warm, pulses normal Neurologic: other (sedated) Psychiatric: other (unable to assess) CBC and BMP: 05/28/21 04:00 05/28/21 04:00 ABG, PT/INR, D-dimer: ABG ABG pH 7.547 (7.320-7.450) H 05/26/21 04:00 POC ABG pCO2 32.2 mmHg (32.0-48.0) 05/26/21 04:00 POC ABG pO2 97.8 mmHg (83-108) 05/26/21 04:00 POC ABG HCO3 27.4 05/26/21 04:00 ABG O2 Saturation 97.9 (0-100) 05/26/21 04:00 PT/INR, D-dimer PT 15.0 Sec. (12.2-14.9) H 05/25/21 09:21 INR 1.13 (0.87-1.13) 05/25/21 09:21 D-Dimer > 30418 ng/mlDDU (0-234) H 05/25/21 09:21 Abnormal lab findings: Abnormal Labs 05/25/21 05/25/21 05/25/21 09:07 09:21 09:21 WBC 17.1 H RBC MCV 106 H MCH 33 H RDW 15.6 H [place] # (Auto) Seg Neutrophils # Seg Neutrophils # Man 10.1 H Lymphocytes # (Manual) 5.6 H PT 15.0 H APTT 44.3 H D-Dimer > 70152 H Heparin Anti-Xa Level ABG pH 7.116 L POC ABG pO2 ABG Hemoglobin ABG Oxyhemoglobin 93.7 L ABG Sodium ABG Potassium ABG Glucose 395 H Carboxyhemoglobin Potassium Carbon Dioxide BUN Glucose POC Glucose Lactic Acid Calcium Ferritin AST ALT Lactate Dehydrogenase Troponin T Total Protein Albumin HDL Cholesterol Arterial Blood Glucose 395 H Arterial Blood Ionized Calcium 4.4 L Urine WBC (Auto) 05/25/21 05/25/21 05/25/21 09:21 09:21 09:21 WBC RBC MCV MCH RDW [place] # (Auto) Seg Neutrophils # Seg Neutrophils # Man Lymphocytes # (Manual) PT APTT D-Dimer Heparin Anti-Xa Level ABG pH POC ABG pO2 ABG Hemoglobin ABG Oxyhemoglobin ABG Sodium ABG Potassium ABG Glucose Carboxyhemoglobin Potassium Carbon Dioxide 10 L BUN Glucose 423 H 424 H POC Glucose Lactic Acid Calcium 8.2 L Ferritin 321.6 H AST 162 H ALT 119 H Lactate Dehydrogenase 445 H Troponin T Total Protein 5.6 L Albumin 3.2 L HDL Cholesterol Arterial Blood Glucose Arterial Blood Ionized Calcium Urine WBC (Auto) 05/25/21 05/25/21 05/25/21 09:35 10:42 11:12 WBC RBC MCV MCH RDW [place] # (Auto) Seg Neutrophils # Seg Neutrophils # Man Lymphocytes # (Manual) PT APTT D-Dimer Heparin Anti-Xa Level ABG pH POC ABG pO2 ABG Hemoglobin ABG Oxyhemoglobin ABG Sodium ABG Potassium ABG Glucose Carboxyhemoglobin Potassium Carbon Dioxide BUN Glucose POC Glucose Lactic Acid 16.70 H* 7.70 H* Calcium Ferritin AST ALT Lactate Dehydrogenase Troponin T Total Protein Albumin HDL Cholesterol Arterial Blood Glucose Arterial Blood Ionized Calcium Urine WBC (Auto) 11.0 H 05/25/21 05/25/21 05/25/21 14:07 15:19 19:04 WBC RBC MCV MCH RDW [place] # (Auto) Seg Neutrophils # Seg Neutrophils # Man Lymphocytes # (Manual) PT APTT D-Dimer Heparin Anti-Xa Level ABG pH POC ABG pO2 172.2 H ABG Hemoglobin ABG Oxyhemoglobin 98.7 H ABG Sodium 135.7 L ABG Potassium ABG Glucose 255 H Carboxyhemoglobin 0.3 L Potassium Carbon Dioxide BUN Glucose POC Glucose Lactic Acid 3.90 H* Calcium Ferritin AST ALT Lactate Dehydrogenase Troponin T 0.226 H* D Total Protein Albumin HDL Cholesterol 64 H Arterial Blood Glucose 255 H Arterial Blood Ionized Calcium 3.8 L Urine WBC (Auto) 05/25/21 05/25/21 05/26/21 21:16 21:16 04:00 WBC RBC MCV MCH RDW [place] # (Auto) Seg Neutrophils # Seg Neutrophils # Man Lymphocytes # (Manual) PT APTT D-Dimer Heparin Anti-Xa Level 1.19 H ABG pH 7.547 H POC ABG pO2 ABG Hemoglobin 11.9 L ABG Oxyhemoglobin ABG Sodium 133.2 L ABG Potassium 3.1 L ABG Glucose 243 H Carboxyhemoglobin 0.3 L Potassium Carbon Dioxide BUN Glucose POC Glucose Lactic Acid 2.50 H* Calcium Ferritin AST ALT Lactate Dehydrogenase Troponin T Total Protein Albumin HDL Cholesterol Arterial Blood Glucose 243 H Arterial Blood Ionized Calcium Urine WBC (Auto) 05/26/21 05/26/21 05/26/21 05:49 05:49 17:33 WBC RBC MCV MCH RDW [place] # (Auto) Seg Neutrophils # Seg Neutrophils # Man Lymphocytes # (Manual) PT APTT D-Dimer Heparin Anti-Xa Level ABG pH POC ABG pO2 ABG Hemoglobin ABG Oxyhemoglobin ABG Sodium ABG Potassium ABG Glucose Carboxyhemoglobin Potassium Carbon Dioxide BUN Glucose 226 H POC Glucose 156 H Lactic Acid 2.30 H* Calcium 7.2 L Ferritin AST 111 H ALT 97 H Lactate Dehydrogenase Troponin T Total Protein 5.4 L Albumin 3.3 L HDL Cholesterol Arterial Blood Glucose Arterial Blood Ionized Calcium Urine WBC (Auto) 05/27/21 05/27/21 05/27/21 02:11 02:11 02:11 WBC 14.3 H RBC 3.27 L MCV 99 H MCH 33 H RDW 15.3 H [place] # (Auto) 1.0 H Seg Neutrophils # 10.0 H Seg Neutrophils # Man Lymphocytes # (Manual) PT APTT D-Dimer Heparin Anti-Xa Level 0.80 H ABG pH POC ABG pO2 ABG Hemoglobin ABG Oxyhemoglobin ABG Sodium ABG Potassium ABG Glucose Carboxyhemoglobin Potassium 2.9 L* D Carbon Dioxide 31 H BUN 6 L Glucose 215 H POC Glucose Lactic Acid Calcium 8.1 L Ferritin AST ALT Lactate Dehydrogenase Troponin T Total Protein Albumin HDL Cholesterol Arterial Blood Glucose Arterial Blood Ionized Calcium Urine WBC (Auto) [facility] notes reviewed: RT
[2021-05-27] MEDS: CEFEPIME/NS 2 GM/100 ML 2 GM/100 ML BAG IV SCH ×2 (10:57→23:33)
--- NOTE | 2021-05-27 12:09 | Progress Note ---
Assessment and Plan 65-year-old female, history of nonepileptic spells, PTSD, closed head injury, hypertension, diabetes, CAD, presents to the ED following cardiac arrest. EMS states Patient collapsed and became unresponsive. Patient was pulseless and apneic. Rhythm was asystole. Patient was intubated by EMS. She was given epi x2. ACLS times approximately 10 minutes followed by return of pulses. Accu- Chek in the 200s. With initial rhythm check here in ED, patient was pulseless, so ACLS restarted. Patient has return of pulse and noted to be in atrial fib, initiated on iv keppra and heparin drip. Assessment and plan -- s/p cardiac arrest Pt on NSR on tele, cardiology consulted, ordered 2d echo -- Acute hypoxemic respiratory failure Patient intubated and on ventilatory support. Critical care team consulted. Wean vent as tolerated, daily spontaneous breathing trial, sedation holiday, supportive care, arterial blood gas per protocol. --SIRS, likely from cardiac arrest and seizure s/p abx, all Cx so far neg, monitor off abx --COVID PUI, r/o with negative test --Possible Anoxic brain injury Supportive care, neuro check, repeat CT scan brain when medically stable. Consulted Neurology -- Atrial fibrillation with RVR, paroxysmal Cardiology team consulted, continue therapeutic anticoagulation as per car diology team with heparin drip, supportive care., Rate control. -- Metabolic acidosis IV fluid resuscitation therapy, follow BMP --Hypertension, initiated on antihypertensive, iv hydralazine as needed --Tonic clonic Seizure Neuro check, antiepileptic therapy with Keppra, neuro consult, EEG ordered -- DVT prophylaxis SCD to bilateral lower extremities while in bed, continue therapeutic ant icoagulation -- patient is full code, patient son Antwon Higginbotham acknowledges understanding and agreement with care plan, The high probability of a clinically significant, sudden or life threatening deterioration of the [multiple] system(s) required my full and direct attention, intervention and personal management. The aggregate critical care time was [30] minutes. This time is in addition to time spent performing reported procedures but includes the following: [x] Data Review and interpretation [x] Patient assessment and monitoring of vital signs [x] Documentation [x] Medication orders and management Daily clinical course: 05/26/21: Updated family at the bedside, Covid test is negative. Will order EEG and neuro consult. Remains intubated, follow clinically. Sedated on Midazolam and Propofol, just received one dose of Lorazepam for witnessed seizure by RN. NSR now, on heparin drip 05/27/21; remains intubated. pending EEG and neuro eval. wean off vent as tolerated. Continue heparin drip per cardiology, replete potassium yesterday, follow BMP. BP noted to be elevated, next started on antihypertensives. Subjective Date of service: 05/27/21 Interval history: Patient seen and examined. Medical records and medication list reviewed. Pt intubated and sedated negative for COVID Discussed plan of care at bedside with patient.s RN Pending EEG and neurology eval Objective - Exam Narrative Exam: GENERAL: well-developed elderly -Emirati female lying on bed intubated and sedated HEENT: Normocephalic. Atraumatic. No conjunctival congestion or icterus. Patient has moist mucous membranes. NECK: Supple. Trachea midline. CHEST/LUNGS: Clear to auscultated bilaterally, breathing nonlabored. No wheezes crackles or rhonchi. HEART/CARDIOVASCULAR: Regular in rate and rhythm. S1 and S2 positive. ABDOMEN: Abdomen is soft, nontender. Patient has normal bowel sounds. SKIN: There is no rash. Warm and dry. NEURO: Sedated MUSCULOSKELETAL: No joint effusion or tenderness. EXTRIMITY: No edema, no cyanosis or clubbing. PSYCH: Sedated - Constitutional Vitals: Vital Signs - 12hr 05/27/21 05/27/21 05/27/21 00:15 00:30 00:45 Temperature Pulse Rate 76 77 71 Pulse Rate [ From Monitor] Pulse Rate [ None] Respiratory 20 20 20 Rate Blood Pressure 160/68 145/61 145/61 O2 Sat by Pulse 99 98 98 Oximetry 05/27/21 05/27/21 05/27/21 00:58 01:00 01:15 Temperature Pulse Rate 75 72 71 Pulse Rate [ From Monitor] Pulse Rate [ None] Respiratory 20 20 Rate Blood Pressure 150/64 O2 Sat by Pulse 98 98 Oximetry 05/27/21 05/27/21 05/27/21 01:30 01:45 02:00 Temperature Pulse Rate 74 81 81 Pulse Rate [ From Monitor] Pulse Rate [ None] Respiratory 20 20 20 Rate Blood Pressure 161/68 161/68 169/70 O2 Sat by Pulse 98 98 98 Oximetry 05/27/21 05/27/21 05/27/21 02:15 02:30 02:45 Temperature Pulse Rate 88 86 98 H Pulse Rate [ From Monitor] Pulse Rate [ None] Respiratory 20 20 25 H Rate Blood Pressure 169/70 170/74 170/74 O2 Sat by Pulse 99 99 99 Oximetry 05/27/21 05/27/21 05/27/21 03:00 03:15 03:19 Temperature 99.9 F H Pulse Rate 84 84 Pulse Rate [ From Monitor] Pulse Rate [ None] Respiratory 20 20 Rate Blood Pressure 168/67 168/67 O2 Sat by Pulse 98 98 Oximetry 05/27/21 05/27/21 05/27/21 03:31 03:45 03:56 Temperature Pulse Rate 108 H 95 H 85 Pulse Rate [ From Monitor] Pulse Rate [ None] Respiratory 27 H 20 Rate Blood Pressure 210/87 210/87 210/87 O2 Sat by Pulse 98 97 97 Oximetry 05/27/21 05/27/21 05/27/21 04:00 04:15 04:30 Temperature Pulse Rate 83 85 86 Pulse Rate [ From Monitor] Pulse Rate [ None] Respiratory 20 20 20 Rate Blood Pressure 167/69 167/69 183/75 O2 Sat by Pulse 97 97 98 Oximetry 05/27/21 05/27/21 05/27/21 04:45 05:01 05:15 Temperature Pulse Rate 88 109 H 89 Pulse Rate [ From Monitor] Pulse Rate [ None] Respiratory 20 32 H 20 Rate Blood Pressure 183/75 204/93 204/93 O2 Sat by Pulse 98 97 99 Oximetry 05/27/21 05/27/21 05/27/21 05:30 05:45 06:00 Temperature Pulse Rate 85 87 87 Pulse Rate [ From Monitor] Pulse Rate [ None] Respiratory 20 20 20 Rate Blood Pressure 176/75 176/75 164/72 O2 Sat by Pulse 98 98 98 Oximetry 05/27/21 05/27/21 05/27/21 06:15 06:30 06:45 Temperature Pulse Rate 84 86 89 Pulse Rate [ From Monitor] Pulse Rate [ None] Respiratory 20 20 20 Rate Blood Pressure 164/72 173/77 173/77 O2 Sat by Pulse 98 98 98 Oximetry 05/27/21 05/27/21 05/27/21 07:00 07:15 07:30 Temperature 100.3 F H Pulse Rate 90 87 85 Pulse Rate [ From Monitor] Pulse Rate [ None] Respiratory 20 20 20 Rate Blood Pressure 169/79 169/79 181/80 O2 Sat by Pulse 99 100 100 Oximetry 05/27/21 05/27/21 05/27/21 07:45 08:00 08:15 Temperature 100.2 F H Pulse Rate 88 85 85 Pulse Rate [ 86 From Monitor] Pulse Rate [ 86 None] Respiratory 20 20 20 Rate Blood Pressure 181/80 185/80 185/80 O2 Sat by Pulse 100 100 100 Oximetry 05/27/21 05/27/21 05/27/21 08:30 08:43 08:45 Temperature Pulse Rate 86 82 84 Pulse Rate [ From Monitor] Pulse Rate [ None] Respiratory 20 20 Rate Blood Pressure 155/64 180/75 181/80 O2 Sat by Pulse 99 100 Oximetry 05/27/21 05/27/21 05/27/21 09:00 09:15 09:30 Temperature Pulse Rate 80 77 77 Pulse Rate [ From Monitor] Pulse Rate [ None] Respiratory 20 20 20 Rate Blood Pressure 159/65 159/65 155/64 O2 Sat by Pulse 99 100 100 Oximetry 05/27/21 05/27/21 05/27/21 09:45 10:00 10:15 Temperature Pulse Rate 86 79 78 Pulse Rate [ From Monitor] Pulse Rate [ None] Respiratory 20 20 20 Rate Blood Pressure 155/64 165/69 165/69 O2 Sat by Pulse 99 100 100 Oximetry 05/27/21 05/27/21 05/27/21 10:30 10:45 11:00 Temperature Pulse Rate 79 76 82 Pulse Rate [ From Monitor] Pulse Rate [ None] Respiratory 20 20 20 Rate Blood Pressure 164/71 165/74 177/78 O2 Sat by Pulse 100 100 100 Oximetry 05/27/21 11:42 Temperature 100.0 F H Pulse Rate Pulse Rate [ From Monitor] Pulse Rate [ None] Respiratory Rate Blood Pressure O2 Sat by Pulse Oximetry - Labs CBC & Chem 7: 06/01/21 04:58 06/01/21 04:58 Labs: Abnormal lab results 05/26/21 05/27/21 05/27/21 Range/Units 17:33 02:11 02:11 WBC 14.3 H (4.5-11.0) K/mm3 RBC 3.27 L (3.65-5.03) M/mm3 MCV 99 H (79-97) fl MCH 33 H (28-32) pg RDW 15.3 H (13.2-15.2) % [place] # (Auto) 1.0 H (0.0-0.8) K/mm3 Seg Neutrophils # 10.0 H (1.8-7.7) K/mm3 Heparin Anti-Xa Level (0.3-0.7) U.I./ml Potassium 2.9 L* D (3.6-5.0) mmol/L Carbon Dioxide 31 H (22-30) mmol/L BUN 6 L (7-17) mg/dL Glucose 215 H (65-100) mg/dL POC Glucose 156 H (70-105) mg/dL Calcium 8.1 L (8.4-10.2) mg/dL 05/27/21 05/27/21 Range/Units 02:11 11:24 WBC (4.5-11.0) K/mm3 RBC (3.65-5.03) M/mm3 MCV (79-97) fl MCH (28-32) pg RDW (13.2-15.2) % [place] # (Auto) (0.0-0.8) K/mm3 Seg Neutrophils # (1.8-7.7) K/mm3 Heparin Anti-Xa Level 0.80 H (0.3-0.7) U.I./ml Potassium (3.6-5.0) mmol/L Carbon Dioxide (22-30) mmol/L BUN (7-17) mg/dL Glucose (65-100) mg/dL POC Glucose 151 H (70-105) mg/dL Calcium (8.4-10.2) mg/dL HEART Score - HEART Score Troponin: Troponin T 0.226 ng/mL (0.00-0.029) H* D 05/25/21 15:19
[2021-05-27] MEDS: POTASSIUM CHLORIDE 10 MEQ 10 MEQ/100 ML BAG IV SCH ×3 (13:22→15:37)
--- NOTE | 2021-05-27 14:06 | Progress Note ---
Assessment and Plan Respiratory failure chest CTA: no evidence of PE negative COVID serology Atrial fibrillation, paroxysmal pt has revered to sinus rhythm on IV heparin Syncope Out of the hospital cardio-pulmonary arrest (initial documented rhythm was asystole) Hypertension Chronic seizure disorder Diabetes Recommend: Continue supportive care Subjective Date of service: 05/27/21 Interval history: No acute events Objective Vital Signs Temp Pulse Pulse Pulse Resp BP BP 05/27/21 13:30 90 19 189/84 05/27/21 13:15 89 20 173/71 05/27/21 13:00 86 20 173/71 05/27/21 12:45 89 20 173/78 05/27/21 12:30 87 20 179/77 05/27/21 12:15 86 20 173/78 05/27/21 12:00 99 F 85 86 86 20 173/78 05/27/21 11:45 84 20 188/87 05/27/21 11:42 100.0 F H 05/27/21 11:40 84 188/87 05/27/21 11:31 85 20 188/87 05/27/21 11:15 90 21 177/78 05/27/21 11:00 82 20 177/78 05/27/21 10:45 76 20 165/74 05/27/21 10:30 79 20 164/71 05/27/21 10:15 78 20 165/69 05/27/21 10:00 79 20 165/69 05/27/21 09:45 86 20 155/64 05/27/21 09:30 77 20 155/64 05/27/21 09:15 77 20 159/65 05/27/21 09:00 80 20 159/65 05/27/21 08:45 84 20 181/80 05/27/21 08:43 82 180/75 05/27/21 08:30 86 20 155/64 05/27/21 08:15 85 20 185/80 05/27/21 08:00 100.2 F H 85 86 86 20 185/80 05/27/21 07:45 88 20 181/80 05/27/21 07:30 85 20 181/80 05/27/21 07:15 87 20 169/79 05/27/21 07:00 100.3 F H 90 20 169/79 05/27/21 06:45 89 20 173/77 05/27/21 06:30 86 20 173/77 05/27/21 06:15 84 20 164/72 05/27/21 06:00 87 20 164/72 05/27/21 05:45 87 20 176/75 05/27/21 05:30 85 20 176/75 05/27/21 05:15 89 20 204/93 05/27/21 05:01 109 H 32 H 204/93 05/27/21 04:45 88 20 183/75 05/27/21 04:30 86 20 183/75 05/27/21 04:15 85 20 167/69 05/27/21 04:00 83 20 167/69 05/27/21 03:56 85 210/87 05/27/21 03:45 95 H 20 210/87 05/27/21 03:31 108 H 27 H 210/87 05/27/21 03:19 99.9 F H 05/27/21 03:15 84 20 168/67 05/27/21 03:00 84 20 168/67 05/27/21 02:45 98 H 25 H 170/74 05/27/21 02:30 86 20 170/74 05/27/21 02:15 88 20 169/70 05/27/21 02:00 81 20 169/70 05/27/21 01:45 81 20 161/68 05/27/21 01:30 74 20 161/68 05/27/21 01:15 71 20 05/27/21 01:00 72 20 150/64 05/27/21 00:58 75 05/27/21 00:45 71 20 145/61 05/27/21 00:30 77 20 145/61 05/27/21 00:15 76 20 160/68 05/27/21 00:04 75 160/68 05/27/21 00:00 77 20 160/68 05/26/21 23:49 80 20 156/71 05/26/21 23:45 83 20 156/71 05/26/21 23:33 101.5 F H 05/26/21 23:30 78 20 156/71 05/26/21 23:15 81 20 155/69 05/26/21 23:00 82 20 155/69 05/26/21 22:45 85 20 174/76 05/26/21 22:30 88 20 174/76 05/26/21 22:21 128/76 05/26/21 22:00 84 20 161/69 05/26/21 21:51 129/69 05/26/21 21:36 116/77 05/26/21 21:30 84 20 158/63 05/26/21 21:26 129/72 05/26/21 21:00 84 20 162/67 05/26/21 20:37 84 149/80 05/26/21 20:30 88 18 149/80 05/26/21 20:00 99.4 F 86 87 20 158/68 05/26/21 19:00 87 20 168/72 05/26/21 16:27 93 H 176/75 05/26/21 16:00 92 H 20 05/26/21 14:09 88 98 H 137/81 Pulse Ox 05/27/21 13:30 100 05/27/21 13:15 100 05/27/21 13:00 99 05/27/21 12:45 100 05/27/21 12:30 100 05/27/21 12:15 100 05/27/21 12:00 100 05/27/21 11:45 99 05/27/21 11:42 05/27/21 11:40 99 05/27/21 11:31 99 05/27/21 11:15 99 05/27/21 11:00 100 05/27/21 10:45 100 05/27/21 10:30 100 05/27/21 10:15 100 05/27/21 10:00 100 05/27/21 09:45 99 05/27/21 09:30 100 05/27/21 09:15 100 05/27/21 09:00 99 05/27/21 08:45 100 05/27/21 08:43 05/27/21 08:30 99 05/27/21 08:15 100 05/27/21 08:00 100 05/27/21 07:45 100 05/27/21 07:30 100 05/27/21 07:15 100 05/27/21 07:00 99 05/27/21 06:45 98 05/27/21 06:30 98 05/27/21 06:15 98 05/27/21 06:00 98 05/27/21 05:45 98 05/27/21 05:30 98 05/27/21 05:15 99 05/27/21 05:01 97 05/27/21 04:45 98 05/27/21 04:30 98 05/27/21 04:15 97 05/27/21 04:00 97 05/27/21 03:56 97 05/27/21 03:45 97 05/27/21 03:31 98 05/27/21 03:19 05/27/21 03:15 98 05/27/21 03:00 98 05/27/21 02:45 99 05/27/21 02:30 99 05/27/21 02:15 99 05/27/21 02:00 98 05/27/21 01:45 98 05/27/21 01:30 98 05/27/21 01:15 98 05/27/21 01:00 98 05/27/21 00:58 05/27/21 00:45 98 05/27/21 00:30 98 05/27/21 00:15 99 05/27/21 00:04 100 05/27/21 00:00 100 05/26/21 23:49 100 05/26/21 23:45 99 05/26/21 23:33 05/26/21 23:30 100 05/26/21 23:15 100 05/26/21 23:00 100 05/26/21 22:45 99 05/26/21 22:30 99 05/26/21 22:21 05/26/21 22:00 98 05/26/21 21:51 05/26/21 21:36 05/26/21 21:30 98 05/26/21 21:26 05/26/21 21:00 98 05/26/21 20:37 100 05/26/21 20:30 99 05/26/21 20:00 99 05/26/21 19:00 100 05/26/21 16:27 99 05/26/21 16:00 98 05/26/21 14:09 - Physical Examination General: Other (intubated on the vent) HEENT: Positive: Other (Pupils for) Neck: Positive: neck supple Cardiac: Positive: Reg Rate and Rhythm Lungs: Positive: clear to auscultation Neuro: Positive: Weakness (Unresponsive, on the vent) Skin: Positive: Clear Extremities: Absent: edema - Labs and Meds CBC 05/27/21 Range/Units 02:11 WBC 14.3 H (4.5-11.0) K/mm3 RBC 3.27 L (3.65-5.03) M/mm3 Hgb 10.9 (10.1-14.3) gm/dl Hct 32.2 D (30.3-42.9) % Plt Count 195 (140-440) K/mm3 Lymph # (Auto) 3.2 (1.2-5.4) K/mm3 [place] # (Auto) 1.0 H (0.0-0.8) K/mm3 Eos # (Auto) 0.0 (0.0-0.4) K/mm3 Baso # (Auto) 0.0 (0.0-0.1) K/mm3 Comprehensive Metabolic Panel 05/27/21 Range/Units 02:11 Sodium 144 (137-145) mmol/L Potassium 2.9 L* D (3.6-5.0) mmol/L Chloride 101.5 (98-107) mmol/L Carbon Dioxide 31 H (22-30) mmol/L BUN 6 L (7-17) mg/dL Creatinine 0.6 (0.6-1.2) mg/dL Glucose 215 H (65-100) mg/dL Calcium 8.1 L (8.4-10.2) mg/dL - Allied health notes Allied health notes reviewed: RT
[2021-05-27] MEDS: METOPROLOL TARTRATE 50 MG TAB FEEDTUBE SCH ×2 (15:36→21:36)
[2021-05-27] MEDS: amLODIPine 10 MG TAB PO SCH (15:36)
[2021-05-27] MEDS: LOSARTAN 50 MG TAB PO SCH (15:37)
[2021-05-27] MEDS: HEPARIN/ 0.45% NACL DRIP 25,000 UNIT/500 ML BAG IV SCH (20:40)
[2021-05-28] MEDS: ACETAMINOPHEN 325 MG TAB PO PRN (04:14)
[2021-05-28 05:28] LABS: Basophils # (Auto) 0.1 K/mm3 (0.0-0.1); Basophils % (Auto) 0.5 % (0.0-1.8); Eosinophils % (Auto) 0.1 % (0.0-4.3); Hematocrit 30.6 % (30.3-42.9); Hemoglobin 10.3 gm/dl (10.1-14.3); Lymphocytes # (Auto) 1.9 K/mm3 (1.2-5.4); Lymphocytes % (Auto) 14.3 % (13.4-35.0); Mean Corpuscular HGB Conc 34 % (30-34); Mean Corpuscular Volume 100 fl (79-97); Monocytes # (Auto) 0.9 K/mm3 (0.0-0.8); Monocytes % (Auto) 6.9 % (0.0-7.3); Platelet Count 182 K/mm3 (140-440); Red Blood Count 3.05 M/mm3 (3.65-5.03); Red Cell Distribution Width 15.1 % (13.2-15.2)
[2021-05-28 05:48] LABS: Blood Urea Nitrogen 10 mg/dL (7-17); Calcium 8.4 mg/dL (8.4-10.2); Hemolysis Index 0
[2021-05-28 05:58] LABS: BUN/Creatinine Ratio 17
--- NOTE | 2021-05-28 07:46 | XRay Report ---
XR chest 1V ap INDICATION / CLINICAL INFORMATION: follow up respiratory failure. COMPARISON: Radiograph from yesterday. FINDINGS: SUPPORT DEVICES: Unchanged. HEART /PULMONARY VASCULATURE: Unchanged. LUNGS / PLEURA: Lung parenchyma is not significantly changed. No pneumothorax. IMPRESSION: 1. No significant interval change. Signer Name: Tyrese Farfan MD Signed: 05/28/2021 7:42 AM Workstation Name: [id number]
[2021-05-28] MEDS: levETIRAcetam 500 MG in DEXTROSE 5% IN WATER 100 ML IV SCH ×2 (08:03→20:15)
[2021-05-28] MEDS: SENNOSIDES/DOCUSATE SODIUM 8.6/50 MG TAB FEEDTUBE SCH ×2 (09:46→22:43)
[2021-05-28] MEDS: METOPROLOL TARTRATE 50 MG TAB FEEDTUBE SCH ×2 (09:46→22:43)
[2021-05-28] MEDS: FAMOTIDINE 20 MG/2 ML INJ IV SCH ×2 (09:46→22:44)
[2021-05-28] MEDS: LOSARTAN 50 MG TAB PO SCH (09:47)
[2021-05-28] MEDS: amLODIPine 10 MG TAB PO SCH (09:47)
[2021-05-28] MEDS: CEFEPIME/NS 2 GM/100 ML 2 GM/100 ML BAG IV SCH ×2 (10:35→22:43)
--- NOTE | 2021-05-28 13:09 | Electrocardiograph Report ---
[facility] Test Date: 2021-05-27 Test Time: 11:20:07 Pat Name: KRANTHI VELASCO Department: Room: A255 1 Gender: F [employer]: EDWINA : [id number] Requested By: LASHELL ALLAN Order Number: [id number] Reading MD: Baltazar Shin Measurements Intervals [place] Rate: 91 P: 72 TN: 194 QRS: 63 QRSD: 95 T: 62 QT: 374 QTc: 460 Interpretive Statements Sinus rhythm Low voltage, extremity leads Compared to ECG 05/25/2021 09:42:04 Low QRS voltage now present Atrial fibrillation no longer present Early repolarization no longer present Possible ischemia no longer present Electronically Signed On 05-28-2021 13:08:49 EDT by Baltazar Shin
--- NOTE | 2021-05-28 13:50 | Progress Note ---
Assessment and Plan Respiratory failure chest CTA: no evidence of PE negative COVID serology Atrial fibrillation, paroxysmal pt has revered to sinus rhythm on IV heparin Syncope Out of the hospital cardio-pulmonary arrest (initial documented rhythm was asystole) Hypertension Chronic seizure disorder Diabetes Recommend: Continue supportive care Continue IV heparin for now Subjective Date of service: 05/28/21 Interval history: No acute events Objective Vital Signs Temp Pulse Pulse Pulse Resp BP Pulse Ox 05/28/21 13:20 80 220/87 05/28/21 12:45 79 24 147/71 94 05/28/21 12:31 78 22 134/80 93 05/28/21 12:20 93 H 220/87 93 05/28/21 12:15 72 20 147/71 97 05/28/21 12:00 83 68 42 H 185/71 91 05/28/21 11:45 69 20 135/62 98 05/28/21 11:41 98.1 F 05/28/21 11:30 70 20 137/64 98 05/28/21 11:15 71 20 137/63 98 05/28/21 11:00 73 20 146/67 97 05/28/21 10:45 74 20 147/68 97 05/28/21 10:30 76 20 158/69 97 05/28/21 10:15 76 20 157/72 96 05/28/21 10:00 75 20 154/71 96 05/28/21 09:47 78 154/72 05/28/21 09:46 77 154/72 05/28/21 09:45 76 20 154/72 96 05/28/21 09:30 76 20 151/68 95 05/28/21 09:15 84 20 174/85 97 05/28/21 09:00 78 20 165/72 100 05/28/21 08:45 80 20 163/75 100 05/28/21 08:30 78 20 163/71 100 05/28/21 08:15 83 20 163/81 100 05/28/21 08:00 78 78 20 152/71 100 05/28/21 07:45 78 20 153/71 100 05/28/21 07:30 77 20 153/68 100 05/28/21 07:15 79 20 155/72 99 05/28/21 07:07 99.8 F H 05/28/21 07:00 80 22 156/71 100 05/28/21 06:45 82 20 157/72 100 05/28/21 06:30 84 20 164/75 100 05/28/21 06:15 84 20 169/80 99 05/28/21 06:00 83 20 169/75 100 05/28/21 05:45 84 20 178/82 99 05/28/21 05:30 85 21 182/79 100 05/28/21 05:15 87 17 181/82 100 05/28/21 05:00 88 22 182/86 99 05/28/21 04:45 89 22 178/80 98 05/28/21 04:31 101 H 25 H 224/116 96 05/28/21 04:15 90 20 171/76 98 05/28/21 04:01 88 13 151/97 99 05/28/21 04:00 102.1 F H 88 16 99 05/28/21 03:45 86 20 141/66 98 05/28/21 03:38 92 H 176/86 98 05/28/21 03:31 84 20 130/58 97 05/28/21 03:26 87 178/80 05/28/21 03:15 92 H 22 178/80 98 05/28/21 03:00 91 H 21 176/86 98 05/28/21 02:45 89 20 168/75 98 05/28/21 02:30 89 20 163/74 99 05/28/21 02:15 86 21 168/76 99 05/28/21 02:00 88 20 175/76 100 05/28/21 01:45 88 21 170/74 100 05/28/21 01:30 87 24 172/80 100 05/28/21 01:15 87 25 H 175/82 100 05/28/21 01:00 88 29 H 174/77 100 05/28/21 00:45 89 27 H 183/90 99 05/28/21 00:30 84 20 163/71 100 05/28/21 00:15 84 20 152/64 100 05/28/21 00:00 85 20 168/75 100 05/27/21 23:48 100.3 F H 05/27/21 23:45 84 20 153/66 99 05/27/21 23:30 86 20 165/73 100 05/27/21 23:21 86 166/78 100 05/27/21 23:15 86 20 167/72 100 05/27/21 23:00 88 20 166/78 100 05/27/21 22:45 85 23 165/73 100 05/27/21 22:41 87 20 167/76 100 05/27/21 22:30 90 20 167/76 05/27/21 22:15 92 H 19 169/79 100 05/27/21 22:00 91 H 20 161/76 100 05/27/21 21:45 91 H 20 168/71 05/27/21 21:36 87 163/73 05/27/21 21:30 88 20 163/73 100 05/27/21 21:15 85 20 157/72 100 05/27/21 21:00 85 20 158/70 05/27/21 20:45 86 20 163/70 100 05/27/21 20:30 85 20 161/78 05/27/21 20:15 85 20 159/72 05/27/21 20:00 99.7 F H 87 20 156/72 05/27/21 19:45 87 20 158/73 05/27/21 19:40 86 154/72 100 05/27/21 19:30 87 20 161/77 99 05/27/21 19:15 90 20 167/79 100 05/27/21 19:00 86 20 154/72 05/27/21 18:45 86 20 157/72 05/27/21 18:30 86 20 155/72 100 05/27/21 18:15 85 20 158/76 05/27/21 18:00 85 20 153/72 05/27/21 17:45 86 20 153/74 05/27/21 17:30 86 20 163/76 05/27/21 17:15 84 20 150/69 100 05/27/21 17:00 85 20 150/69 100 05/27/21 16:45 84 20 158/75 05/27/21 16:30 88 20 158/75 100 05/27/21 16:15 88 20 172/72 05/27/21 16:00 98.7 F 94 H 88 84 20 172/72 05/27/21 15:51 100.7 F H 05/27/21 15:45 97 H 20 180/76 05/27/21 15:30 96 H 20 180/76 05/27/21 15:15 93 H 20 17905/27/21 15:00 92 H 20 05/27/21 14:45 95 H 20 198/87 05/27/21 14:30 91 H 20 186/80 05/27/21 14:15 92 H 20 [id number] 05/27/21 14:00 89 22 187 100 - Physical Examination General: Other (intubated on the vent) Neck: Positive: neck supple Cardiac: Positive: Reg Rate and Rhythm Neuro: Positive: Weakness (Unresponsive, on the vent) Abdomen: Positive: Soft Skin: Positive: Clear Extremities: Absent: edema - Labs and Meds CBC 05/28/21 Range/Units 04:00 WBC 13.5 H (4.5-11.0) K/mm3 RBC 3.05 L (3.65-5.03) M/mm3 Hgb 10.3 (10.1-14.3) gm/dl Hct 30.6 (30.3-42.9) % Plt Count 182 (140-440) K/mm3 Lymph # (Auto) 1.9 (1.2-5.4) K/mm3 [place] # (Auto) 0.9 H (0.0-0.8) K/mm3 Eos # (Auto) 0.0 (0.0-0.4) K/mm3 Baso # (Auto) 0.1 (0.0-0.1) K/mm3 Comprehensive Metabolic Panel 05/28/21 Range/Units 04:00 Sodium 136 L D (137-145) mmol/L Potassium 3.7 D (3.6-5.0) mmol/L Chloride 98.4 (98-107) mmol/L Carbon Dioxide 27 (22-30) mmol/L BUN 10 (7-17) mg/dL Creatinine 0.6 (0.6-1.2) mg/dL Glucose 215 H (65-100) mg/dL Calcium 8.4 (8.4-10.2) mg/dL - Allied health notes Allied health notes reviewed: RT
--- NOTE | 2021-05-28 14:19 | Progress Note ---
Assessment and Plan Acute hypoxemic respiratory failure on MVS s/p Cardiopulmonary arrest wtih ROSC h/o Seizure disorder Sepsis Toxic metabolic encephalopathy, possible anoxia Atrial fibrillation with RVR Metabolic acidosis Bilateral lower lobe infiltrates on imaging Discontinue Femoral CVL SAT,SBT today Start Antihypertensives Start Seroquel while monitoring QTc Follow cultures and continue antibiotics for ongoing fevers Critical care bundles addressed ABG, CXR in am -daily SAT and SBT - continue to titrate supplemental oxygen to keep SpO2 88-90% - VAP bundle addressed, aspiration precautions HOB >30 - continue lung protective strategies - continue bronchodilators (MARY & LABA) with pulmonary hygiene per RT - daily assessment for readiness to wean, SAT and SBT -EEG ordered and Neurology consult per hospitalist service( awaiting consult and EEG) -Accuchecks with glycemic control per SSI (While critically ill target blood glucose of 140-180 mg/dL; avoid hypoglycemia) -Enteric nutritional support at goal - sedation prn for target RASS 0 to -1 - avoid nephrotoxins, renally dose all medications -Conservative fluid management - Empiric antibiotics ( Cefepime) for sepsis. De-escalate based on culture data and clinical response -Follow cultures( no growth to date, Sputum GPC in pairs) - prn analgesia per CPOT score - Maintenance of sleep-wake cycle, avoid delirium - Stress ulcer prophylaxis- Famotidine - Continue VTE prophylaxis, on therapeutic heparin for Atrial fibrillation - mobility, off loading, frequent turning per facility protocol for pressure ulcer prevention - Monitor hemodynamics closely - continue other care per attending / other consultants COVID SPECIFIC INTERVENTIONS -Negative CONDITION: CRITICAL PROGNOSIS: GUARDED CODE STATUS: FULL CODE Discussed extensively with the son at the bedside and answered all his questions Discussed with hospitalist service The high probability of a clinically significant, sudden or life-threatening deterioration of the [respiratory, cardiovascular, neurologic] system(s) required my full and direct attention, intervention and personal management. The aggregate critical care time was [35] minutes without overlap. Time includes spent on; [x] Data Review and interpretation [x] Patient assessment and monitoring of vital signs [x] Documentation [x] Medication orders and management Subjective Date of service: 05/28/21 Interval history: Summary per medical records. Information verified at the bedside with her son 65 YO Female with HTN, SD, CAD S/P Stent Placement, Nicotine Dependence, DM, HLD, Seizure Disorder presents to ED for evaluation. Patient is intubated and ambulatory support at the time my evaluation is unable to provide history. Patient agitated when EMS staff, ED staff, as well as the patient's son who was made available by telephone for interview. As per son the patient was in her usual state of health on the day prior to admission. 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 Patient son reports that patient began hyperventilating and screaming "help me, help me. 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 Patient was treated" with ACLS protocol with return of perfusing cardiac rhythm. The patient was transported to [facility] for further care and evaluation of the aforementioned symptoms. The patient was seen and evaluated in the emergency department and shortly upon arrival to the emergency department the patient experienced repeated asystole. Patient was again treated" with ACLS protocol with eventual return of perfusing cardiac rhythm. Patient was found to have acute hypoxemic respiratory failure and was unable to protect her airway and was subsequently intubated while in the emergency department. The patient was also found to have atrial fibrillation with rapid ventricular response, metabolic acidosis, sepsis, toxic metabolic encephalopathy and suspected anoxic brain injury. Patient admitted to ICU and initiated on sepsis protocol. Follow up for: acute hypoxemic resp failure; s/p cardiopulmonary arrest with ROSC; Seizure disorder Patient seen and examined. Vitals, labs, medications, chart reviewed. Son at the bedside. No fevers, no vomiting. 05/26/2021 Orally intubated on MVS, OGT in place Sedated on Midazolam and Propofol, just received one dose of Lorazepam for witnessed seizure by RN On bicarbonate infusion Discussed with respiratory and nursing 05/27/2021 Remains on MVS ACVC 20/450/+10/40% ABG 7.35/32/97.8/27.4 Gets hypertensive when sedation is weaned down. Remains on heparin infusion for Afib On Cefepime Discussed with respiratory and nursing staff 05/28/2021 Remains on MVS: ETT 7.0 at 23 cm ACVC 20/450/+8/40% Hypertension when sedation is titrated down. High grade fevers with Tmax 102 Remains on Propofol and Midazolam Objective Vital Signs - 12hr 05/28/21 05/28/21 05/28/21 02:30 02:45 03:00 Temperature Pulse Rate 89 89 91 H Pulse Rate [ From Monitor] Respiratory 20 20 21 Rate Blood Pressure 163/74 168/75 176/86 O2 Sat by Pulse 99 98 98 Oximetry 05/28/21 05/28/21 05/28/21 03:15 03:26 03:31 Temperature Pulse Rate 92 H 87 84 Pulse Rate [ From Monitor] Respiratory 22 20 Rate Blood Pressure 178/80 178/80 130/58 O2 Sat by Pulse 98 97 Oximetry 05/28/21 05/28/21 05/28/21 03:38 03:45 04:00 Temperature 102.1 F H Pulse Rate 92 H 86 88 Pulse Rate [ From Monitor] Respiratory 20 16 Rate Blood Pressure 176/86 141/66 O2 Sat by Pulse 98 98 99 Oximetry 05/28/21 05/28/21 05/28/21 04:01 04:15 04:31 Temperature Pulse Rate 88 90 101 H Pulse Rate [ From Monitor] Respiratory 13 20 25 H Rate Blood Pressure 151/97 171/76 224/116 O2 Sat by Pulse 99 98 96 Oximetry 05/28/21 05/28/21 05/28/21 04:45 05:00 05:15 Temperature Pulse Rate 89 88 87 Pulse Rate [ From Monitor] Respiratory 22 22 17 Rate Blood Pressure 178/80 182/86 181/82 O2 Sat by Pulse 98 99 100 Oximetry 05/28/21 05/28/21 05/28/21 05:30 05:45 06:00 Temperature Pulse Rate 85 84 83 Pulse Rate [ From Monitor] Respiratory 21 20 20 Rate Blood Pressure 182/79 178/82 169/75 O2 Sat by Pulse 100 99 100 Oximetry 05/28/21 05/28/21 05/28/21 06:15 06:30 06:45 Temperature Pulse Rate 84 84 82 Pulse Rate [ From Monitor] Respiratory 20 20 20 Rate Blood Pressure 169/80 164/75 157/72 O2 Sat by Pulse 99 100 100 Oximetry 05/28/21 05/28/21 05/28/21 07:00 07:07 07:15 Temperature 99.8 F H Pulse Rate 80 79 Pulse Rate [ From Monitor] Respiratory 22 20 Rate Blood Pressure 156/71 155/72 O2 Sat by Pulse 100 99 Oximetry 05/28/21 05/28/21 05/28/21 07:30 07:45 08:00 Temperature Pulse Rate 77 78 78 Pulse Rate [ 78 From Monitor] Respiratory 20 20 20 Rate Blood Pressure 153/68 153/71 152/71 O2 Sat by Pulse 100 100 100 Oximetry 05/28/21 05/28/21 05/28/21 08:15 08:30 08:45 Temperature Pulse Rate 83 78 80 Pulse Rate [ From Monitor] Respiratory 20 20 20 Rate Blood Pressure 163/81 163/71 163/75 O2 Sat by Pulse 100 100 100 Oximetry 05/28/21 05/28/21 05/28/21 09:00 09:15 09:30 Temperature Pulse Rate 78 84 76 Pulse Rate [ From Monitor] Respiratory 20 20 20 Rate Blood Pressure 165/72 174/85 151/68 O2 Sat by Pulse 100 97 95 Oximetry 05/28/21 05/28/21 05/28/21 09:45 09:46 09:47 Temperature Pulse Rate 76 77 78 Pulse Rate [ From Monitor] Respiratory 20 Rate Blood Pressure 154/72 154/72 154/72 O2 Sat by Pulse 96 Oximetry 05/28/21 05/28/21 05/28/21 10:00 10:15 10:30 Temperature Pulse Rate 75 76 76 Pulse Rate [ From Monitor] Respiratory 20 20 20 Rate Blood Pressure 154/71 157/72 158/69 O2 Sat by Pulse 96 96 97 Oximetry 05/28/21 05/28/21 05/28/21 10:45 11:00 11:15 Temperature Pulse Rate 74 73 71 Pulse Rate [ From Monitor] Respiratory 20 20 20 Rate Blood Pressure 147/68 146/67 137/63 O2 Sat by Pulse 97 97 98 Oximetry 05/28/21 05/28/21 05/28/21 11:30 11:41 11:45 Temperature 98.1 F Pulse Rate 70 69 Pulse Rate [ From Monitor] Respiratory 20 20 Rate Blood Pressure 137/64 135/62 O2 Sat by Pulse 98 98 Oximetry 05/28/21 05/28/21 05/28/21 12:00 12:15 12:20 Temperature Pulse Rate 83 72 93 H Pulse Rate [ 68 From Monitor] Respiratory 42 H 20 Rate Blood Pressure 185/71 147/71 220/87 O2 Sat by Pulse 91 97 93 Oximetry 05/28/21 05/28/21 05/28/21 12:31 12:45 13:20 Temperature Pulse Rate 78 79 80 Pulse Rate [ From Monitor] Respiratory 22 24 Rate Blood Pressure 134/80 147/71 220/87 O2 Sat by Pulse 93 94 Oximetry Constitutional: no acute distress, other (sedated, orally intubated, no distress) Eyes: non-icteric ENT: oropharynx moist, other (ETT at 23cm CHAPIN) Neck: supple, no lymphadenopathy Effort: normal Ascultation: Bilateral: diminished breath sounds, rhonchi (lung bases ant eriorly) Cardiovascular: irregular rhythm, other (S1,S2) Gastrointestinal: normoactive bowel sounds, soft, non-tender, non-distended Integumentary: normal Extremities: pink and warm, pulses normal Neurologic: other (sedated) Psychiatric: other (unable to assess) CBC and BMP: 06/01/21 04:58 06/01/21 04:58 ABG, PT/INR, D-dimer: ABG ABG pH 7.507 (7.320-7.450) H 05/28/21 06:02 POC ABG pCO2 33.4 mmHg (32.0-48.0) 05/28/21 06:02 POC ABG pO2 89.8 mmHg (83-108) 05/28/21 06:02 POC ABG HCO3 25.9 05/28/21 06:02 ABG O2 Saturation 97.3 (0-100) 05/28/21 06:02 PT/INR, D-dimer PT 15.0 Sec. (12.2-14.9) H 05/25/21 09:21 INR 1.13 (0.87-1.13) 05/25/21 09:21 D-Dimer > 06273 ng/mlDDU (0-234) H 05/25/21 09:21 Abnormal lab findings: Abnormal Labs 05/25/21 05/25/21 05/25/21 09:07 09:21 09:21 WBC 17.1 H RBC MCV 106 H MCH 33 H RDW 15.6 H Dyer # (Auto) Seg Neutrophils % Seg Neutrophils # Seg Neutrophils # Man 10.1 H Lymphocytes # (Manual) 5.6 H PT 15.0 H APTT 44.3 H D-Dimer > 97495 H Heparin Anti-Xa Level ABG pH 7.116 L POC ABG pO2 ABG Hemoglobin ABG Oxyhemoglobin 93.7 L ABG Sodium ABG Potassium ABG Glucose 395 H Carboxyhemoglobin Sodium Potassium Carbon Dioxide BUN Glucose POC Glucose Lactic Acid Calcium Ferritin AST ALT Lactate Dehydrogenase Troponin T Total Protein Albumin HDL Cholesterol Arterial Blood Glucose 395 H Arterial Blood Ionized Calcium 4.4 L Urine WBC (Auto) 05/25/21 05/25/21 05/25/21 09:21 09:21 09:21 WBC RBC MCV MCH RDW Dyer # (Auto) Seg Neutrophils % Seg Neutrophils # Seg Neutrophils # Man Lymphocytes # (Manual) PT APTT D-Dimer Heparin Anti-Xa Level ABG pH POC ABG pO2 ABG Hemoglobin ABG Oxyhemoglobin ABG Sodium ABG Potassium ABG Glucose Carboxyhemoglobin Sodium Potassium Carbon Dioxide 10 L BUN Glucose 423 H 424 H POC Glucose Lactic Acid Calcium 8.2 L Ferritin 321.6 H AST 162 H ALT 119 H Lactate Dehydrogenase 445 H Troponin T Total Protein 5.6 L Albumin 3.2 L HDL Cholesterol Arterial Blood Glucose Arterial Blood Ionized Calcium Urine WBC (Auto) 05/25/21 05/25/21 05/25/21 09:35 10:42 11:12 WBC RBC MCV MCH RDW Dyer # (Auto) Seg Neutrophils % Seg Neutrophils # Seg Neutrophils # Man Lymphocytes # (Manual) PT APTT D-Dimer Heparin Anti-Xa Level ABG pH POC ABG pO2 ABG Hemoglobin ABG Oxyhemoglobin ABG Sodium ABG Potassium ABG Glucose Carboxyhemoglobin Sodium Potassium Carbon Dioxide BUN Glucose POC Glucose Lactic Acid 16.70 H* 7.70 H* Calcium Ferritin AST ALT Lactate Dehydrogenase Troponin T Total Protein Albumin HDL Cholesterol Arterial Blood Glucose Arterial Blood Ionized Calcium Urine WBC (Auto) 11.0 H 05/25/21 05/25/21 05/25/21 14:07 15:19 19:04 WBC RBC MCV MCH RDW Dyer # (Auto) Seg Neutrophils % Seg Neutrophils # Seg Neutrophils # Man Lymphocytes # (Manual) PT APTT D-Dimer Heparin Anti-Xa Level ABG pH POC ABG pO2 172.2 H ABG Hemoglobin ABG Oxyhemoglobin 98.7 H ABG Sodium 135.7 L ABG Potassium ABG Glucose 255 H Carboxyhemoglobin 0.3 L Sodium Potassium Carbon Dioxide BUN Glucose POC Glucose Lactic Acid 3.90 H* Calcium Ferritin AST ALT Lactate Dehydrogenase Troponin T 0.226 H* D Total Protein Albumin HDL Cholesterol 64 H Arterial Blood Glucose 255 H Arterial Blood Ionized Calcium 3.8 L Urine WBC (Auto) 05/25/21 05/25/21 05/26/21 21:16 21:16 04:00 WBC RBC MCV MCH RDW Dyer # (Auto) Seg Neutrophils % Seg Neutrophils # Seg Neutrophils # Man Lymphocytes # (Manual) PT APTT D-Dimer Heparin Anti-Xa Level 1.19 H ABG pH 7.547 H POC ABG pO2 ABG Hemoglobin 11.9 L ABG Oxyhemoglobin ABG Sodium 133.2 L ABG Potassium 3.1 L ABG Glucose 243 H Carboxyhemoglobin 0.3 L Sodium Potassium Carbon Dioxide BUN Glucose POC Glucose Lactic Acid 2.50 H* Calcium Ferritin AST ALT Lactate Dehydrogenase Troponin T Total Protein Albumin HDL Cholesterol Arterial Blood Glucose 243 H Arterial Blood Ionized Calcium Urine WBC (Auto) 05/26/21 05/26/21 05/26/21 05:49 05:49 17:33 WBC RBC MCV MCH RDW Dyer # (Auto) Seg Neutrophils % Seg Neutrophils # Seg Neutrophils # Man Lymphocytes # (Manual) PT APTT D-Dimer Heparin Anti-Xa Level ABG pH POC ABG pO2 ABG Hemoglobin ABG Oxyhemoglobin ABG Sodium ABG Potassium ABG Glucose Carboxyhemoglobin Sodium Potassium Carbon Dioxide BUN Glucose 226 H POC Glucose 156 H Lactic Acid 2.30 H* Calcium 7.2 L Ferritin AST 111 H ALT 97 H Lactate Dehydrogenase Troponin T Total Protein 5.4 L Albumin 3.3 L HDL Cholesterol Arterial Blood Glucose Arterial Blood Ionized Calcium Urine WBC (Auto) 05/27/21 05/27/21 05/27/21 02:11 02:11 02:11 WBC 14.3 H RBC 3.27 L MCV 99 H MCH 33 H RDW 15.3 H Dyer # (Auto) 1.0 H Seg Neutrophils % Seg Neutrophils # 10.0 H Seg Neutrophils # Man Lymphocytes # (Manual) PT APTT D-Dimer Heparin Anti-Xa Level 0.80 H ABG pH POC ABG pO2 ABG Hemoglobin ABG Oxyhemoglobin ABG Sodium ABG Potassium ABG Glucose Carboxyhemoglobin Sodium Potassium 2.9 L* D Carbon Dioxide 31 H BUN 6 L Glucose 215 H POC Glucose Lactic Acid Calcium 8.1 L Ferritin AST ALT Lactate Dehydrogenase Troponin T Total Protein Albumin HDL Cholesterol Arterial Blood Glucose Arterial Blood Ionized Calcium Urine WBC (Auto) 05/27/21 05/27/21 05/27/21 11:24 12:49 18:06 WBC RBC MCV MCH RDW Dyer # (Auto) Seg Neutrophils % Seg Neutrophils # Seg Neutrophils # Man Lymphocytes # (Manual) PT APTT D-Dimer Heparin Anti-Xa Level ABG pH POC ABG pO2 ABG Hemoglobin ABG Oxyhemoglobin ABG Sodium ABG Potassium ABG Glucose Carboxyhemoglobin Sodium Potassium Carbon Dioxide BUN Glucose POC Glucose 151 H 165 H 137 H Lactic Acid Calcium Ferritin AST ALT Lactate Dehydrogenase Troponin T Total Protein Albumin HDL Cholesterol Arterial Blood Glucose Arterial Blood Ionized Calcium Urine WBC (Auto) 05/28/21 05/28/21 05/28/21 04:00 04:00 06:02 WBC 13.5 H RBC 3.05 L MCV 100 H MCH 34 H RDW Dyer # (Auto) 0.9 H Seg Neutrophils % 78.2 H Seg Neutrophils # 10.6 H Seg Neutrophils # Man Lymphocytes # (Manual) PT APTT D-Dimer Heparin Anti-Xa Level ABG pH 7.507 H POC ABG pO2 ABG Hemoglobin 10.6 L ABG Oxyhemoglobin ABG Sodium 129.4 L ABG Potassium ABG Glucose 243 H Carboxyhemoglobin 0.2 L Sodium 136 L D Potassium Carbon Dioxide BUN Glucose 215 H POC Glucose Lactic Acid Calcium Ferritin AST ALT Lactate Dehydrogenase Troponin T Total Protein Albumin HDL Cholesterol Arterial Blood Glucose 243 H Arterial Blood Ionized Calcium 4.1 L Urine WBC (Auto) 05/28/21 11:27 WBC RBC MCV MCH RDW Dyer # (Auto) Seg Neutrophils % Seg Neutrophils # Seg Neutrophils # Man Lymphocytes # (Manual) PT APTT D-Dimer Heparin Anti-Xa Level ABG pH POC ABG pO2 ABG Hemoglobin ABG Oxyhemoglobin ABG Sodium ABG Potassium ABG Glucose Carboxyhemoglobin Sodium Potassium Carbon Dioxide BUN Glucose POC Glucose 220 H Lactic Acid Calcium Ferritin AST ALT Lactate Dehydrogenase Troponin T Total Protein Albumin HDL Cholesterol Arterial Blood Glucose Arterial Blood Ionized Calcium Urine WBC (Auto) Chest x-ray: image reviewed Allied health notes reviewed: RT
[2021-05-28] MEDS ORDERED: DEXTROSE 50% IN WATER (25GM) 50 ML SYRINGE IV PRN (14:28)
--- NOTE | 2021-05-28 15:58 | Progress Note ---
Assessment and Plan 65-year-old female, history of nonepileptic spells, PTSD, closed head injury, hypertension, diabetes, CAD, presents to the ED following cardiac arrest. EMS states Patient collapsed and became unresponsive. Patient was pulseless and apneic. Rhythm was asystole. Patient was intubated by EMS. She was given epi x2. ACLS times approximately 10 minutes followed by return of pulses. Accu- Chek in the 200s. With initial rhythm check here in ED, patient was pulseless, so ACLS restarted. Patient has return of pulse and noted to be in atrial fib, initiated on iv keppra and heparin drip. Assessment and plan -- s/p cardiac arrest Pt on NSR on tele, cardiology consulted, ordered 2d echo -- Acute hypoxemic respiratory failure Patient intubated and on ventilatory support. Critical care team consulted. Wean vent as tolerated, daily spontaneous breathing trial, sedation holiday, supportive care, arterial blood gas per protocol. --SIRS, likely from cardiac arrest and seizure s/p abx, all Cx so far neg, monitor off abx --COVID PUI, r/o with negative test --Possible Anoxic brain injury Supportive care, neuro check, repeat CT scan brain when medically stable. Consulted Neurology -- Atrial fibrillation with RVR, paroxysmal Cardiology team consulted, continue therapeutic anticoagulation as per car diology team with heparin drip, supportive care., Rate control. -- Metabolic acidosis IV fluid resuscitation therapy, follow BMP --Hypertension, initiated on antihypertensive, iv hydralazine as needed --Tonic clonic Seizure Neuro check, antiepileptic therapy with Keppra, neuro consult, EEG ordered -- DVT prophylaxis SCD to bilateral lower extremities while in bed, continue therapeutic ant icoagulation -- patient is full code, patient son Antwon Higginbotham acknowledges understanding and agreement with care plan, The high probability of a clinically significant, sudden or life threatening deterioration of the [multiple] system(s) required my full and direct attention, intervention and personal management. The aggregate critical care time was [30] minutes. This time is in addition to time spent performing reported procedures but includes the following: [x] Data Review and interpretation [x] Patient assessment and monitoring of vital signs [x] Documentation [x] Medication orders and management Daily clinical course: 05/26/21: Updated family at the bedside, Covid test is negative. Will order EEG and neuro consult. Remains intubated, follow clinically. Sedated on Midazolam and Propofol, just received one dose of Lorazepam for witnessed seizure by RN. NSR now, on heparin drip 05/27/21; remains intubated. pending EEG and neuro eval. wean off vent as tolerated. Continue heparin drip per cardiology, replete potassium yesterday, follow BMP. BP noted to be elevated, next started on antihypertensives. 05/28/21; BP noted to be elevated, initiated on antihypertensive, remains intubated. Pending neurology evaluation and EEG. Continue supportive care, follow BMP. Subjective Date of service: 05/28/21 Interval history: Patient seen and examined. Medical records and medication list reviewed. Pt intubated and sedated Discussed plan of care at bedside with patient.s RN Pending EEG and neurology eval Objective - Exam Narrative Exam: GENERAL: well-developed elderly -N[place]alese female lying on bed intubated and sedated HEENT: Normocephalic. Atraumatic. No conjunctival congestion or icterus. Patient has moist mucous membranes. NECK: Supple. Trachea midline. CHEST/LUNGS: Clear to auscultated bilaterally, breathing nonlabored. No wheezes crackles or rhonchi. HEART/CARDIOVASCULAR: Regular in rate and rhythm. S1 and S2 positive. ABDOMEN: Abdomen is soft, nontender. Patient has normal bowel sounds. SKIN: There is no rash. Warm and dry. NEURO: Sedated MUSCULOSKELETAL: No joint effusion or tenderness. EXTRIMITY: No edema, no cyanosis or clubbing. PSYCH: Sedated - Constitutional Vitals: Vital Signs - 12hr 05/28/21 05/28/21 05/28/21 04:00 04:01 04:15 Temperature 102.1 F H Pulse Rate 88 88 90 Pulse Rate [ From Monitor] Respiratory 16 13 20 Rate Blood Pressure 151/97 171/76 O2 Sat by Pulse 99 99 98 Oximetry 05/28/21 05/28/21 05/28/21 04:31 04:45 05:00 Temperature Pulse Rate 101 H 89 88 Pulse Rate [ From Monitor] Respiratory 25 H 22 22 Rate Blood Pressure 224/116 178/80 182/86 O2 Sat by Pulse 96 98 99 Oximetry 05/28/21 05/28/21 05/28/21 05:15 05:30 05:45 Temperature Pulse Rate 87 85 84 Pulse Rate [ From Monitor] Respiratory 17 21 20 Rate Blood Pressure 181/82 182/79 178/82 O2 Sat by Pulse 100 100 99 Oximetry 05/28/21 05/28/21 05/28/21 06:00 06:15 06:30 Temperature Pulse Rate 83 84 84 Pulse Rate [ From Monitor] Respiratory 20 20 20 Rate Blood Pressure 169/75 169/80 164/75 O2 Sat by Pulse 100 99 100 Oximetry 05/28/21 05/28/21 05/28/21 06:45 07:00 07:07 Temperature 99.8 F H Pulse Rate 82 80 Pulse Rate [ From Monitor] Respiratory 20 22 Rate Blood Pressure 157/72 156/71 O2 Sat by Pulse 100 100 Oximetry 05/28/21 05/28/21 05/28/21 07:15 07:30 07:45 Temperature Pulse Rate 79 77 78 Pulse Rate [ From Monitor] Respiratory 20 20 20 Rate Blood Pressure 155/72 153/68 153/71 O2 Sat by Pulse 99 100 100 Oximetry 05/28/21 05/28/21 05/28/21 08:00 08:15 08:30 Temperature Pulse Rate 78 83 78 Pulse Rate [ 78 From Monitor] Respiratory 20 20 20 Rate Blood Pressure 152/71 163/81 163/71 O2 Sat by Pulse 100 100 100 Oximetry 05/28/21 05/28/21 05/28/21 08:45 09:00 09:15 Temperature Pulse Rate 80 78 84 Pulse Rate [ From Monitor] Respiratory 20 20 20 Rate Blood Pressure 163/75 165/72 174/85 O2 Sat by Pulse 100 100 97 Oximetry 05/28/21 05/28/21 05/28/21 09:30 09:45 09:46 Temperature Pulse Rate 76 76 77 Pulse Rate [ From Monitor] Respiratory 20 20 Rate Blood Pressure 151/68 154/72 154/72 O2 Sat by Pulse 95 96 Oximetry 05/28/21 05/28/21 05/28/21 09:47 10:00 10:15 Temperature Pulse Rate 78 75 76 Pulse Rate [ From Monitor] Respiratory 20 20 Rate Blood Pressure 154/72 154/71 157/72 O2 Sat by Pulse 96 96 Oximetry 05/28/21 05/28/21 05/28/21 10:30 10:45 11:00 Temperature Pulse Rate 76 74 73 Pulse Rate [ From Monitor] Respiratory 20 20 20 Rate Blood Pressure 158/69 147/68 146/67 O2 Sat by Pulse 97 97 97 Oximetry 05/28/21 05/28/21 05/28/21 11:15 11:30 11:41 Temperature 98.1 F Pulse Rate 71 70 Pulse Rate [ From Monitor] Respiratory 20 20 Rate Blood Pressure 137/63 137/64 O2 Sat by Pulse 98 98 Oximetry 05/28/21 05/28/21 05/28/21 11:45 12:00 12:15 Temperature Pulse Rate 69 83 72 Pulse Rate [ 68 From Monitor] Respiratory 20 42 H 20 Rate Blood Pressure 135/62 185/71 147/71 O2 Sat by Pulse 98 91 97 Oximetry 05/28/21 05/28/21 05/28/21 12:20 12:31 12:45 Temperature Pulse Rate 93 H 78 79 Pulse Rate [ From Monitor] Respiratory 22 24 Rate Blood Pressure 220/87 134/80 147/71 O2 Sat by Pulse 93 93 94 Oximetry 05/28/21 05/28/21 13:20 15:37 Temperature Pulse Rate 80 88 Pulse Rate [ From Monitor] Respiratory Rate Blood Pressure 220/87 171/77 O2 Sat by Pulse 95 Oximetry - Labs CBC & Chem 7: 06/01/21 04:58 06/01/21 04:58 Labs: Abnormal lab results 05/27/21 05/28/21 05/28/21 Range/Units 18:06 04:00 04:00 WBC 13.5 H (4.5-11.0) K/mm3 RBC 3.05 L (3.65-5.03) M/mm3 MCV 100 H (79-97) fl MCH 34 H (28-32) pg Garrard # (Auto) 0.9 H (0.0-0.8) K/mm3 Seg Neutrophils % 78.2 H (40.0-70.0) % Seg Neutrophils # 10.6 H (1.8-7.7) K/mm3 ABG pH (7.320-7.450) ABG Hemoglobin (12.0-17.5) ABG Sodium (136.0-145.0) mmol/L ABG Glucose (65-95) mg/dL Carboxyhemoglobin (0.5-1.5) Sodium 136 L D (137-145) mmol/L Glucose 215 H (65-100) mg/dL POC Glucose 137 H (70-105) mg/dL Arterial Blood Glucose (65-95) mg/dL Arterial Blood Ionized Calcium (4.6-5.3) mg/dL 05/28/21 05/28/21 Range/Units 06:02 11:27 WBC (4.5-11.0) K/mm3 RBC (3.65-5.03) M/mm3 MCV (79-97) fl MCH (28-32) pg G[place]ard # (Auto) (0.0-0.8) K/mm3 Seg Neutrophils % (40.0-70.0) % Seg Neutrophils # (1.8-7.7) K/mm3 ABG pH 7.507 H (7.320-7.450) ABG Hemoglobin 10.6 L (12.0-17.5) ABG Sodium 129.4 L (136.0-145.0) mmol/L ABG Glucose 243 H (65-95) mg/dL Carboxyhemoglobin 0.2 L (0.5-1.5) Sodium (137-145) mmol/L Glucose (65-100) mg/dL POC Glucose 220 H (70-105) mg/dL Arterial Blood Glucose 243 H (65-95) mg/dL Arterial Blood Ionized Calcium 4.1 L (4.6-5.3) mg/dL HEART Score - HEART Score Troponin: Troponin T 0.226 ng/mL (0.00-0.029) H* D 05/25/21 15:19
[2021-05-28] MEDS ORDERED: INSULIN LISPRO 100 UNIT/ML SUB-Q SCH (22:00)
[2021-05-29] MEDS: HEPARIN/ 0.45% NACL DRIP 25,000 UNIT/500 ML BAG IV SCH (00:31)
--- NOTE | 2021-05-29 02:44 | XRay Report ---
XR chest 1V ap INDICATION / CLINICAL INFORMATION: follow up respiratory failure. COMPARISON: 05/28/2021 FINDINGS: SUPPORT DEVICES: Unchanged. HEART /PULMONARY VASCULATURE: Stable. LUNGS / PLEURA: Improved lung aeration. Perihilar and left basilar airspace opacities persist. No pne umothorax. ADDITIONAL FINDINGS: No significant additional findings. IMPRESSION: Improved lung aeration. Signer Name: Tyrese Farfan MD Signed: 05/29/2021 2:40 AM Workstation Name: [id number]
[2021-05-29 06:07] LABS: Hematocrit 26.7 % (30.3-42.9); Hemoglobin 9.3 gm/dl (10.1-14.3)
[2021-05-29 06:23] LABS: ABG Base Excess 1.2 mmol/L (-2.0-3.0); ABG Methemoglobin 0.4 % (0.0-1.5); ABG Oxygen Saturation 97.8 % (95.0-99.0); ABG PCO2 30.3 mm Hg; ABG PH 7.516 pH Units (7.350-7.450); ABG PO2 96.2 mm Hg (80.0-90.0)
--- NOTE | 2021-05-29 09:21 | Consultation ---
History of Present Illness Consult date: 05/29/21 Reason for Consult: Post cardiac arrest,asystole intubated History of present illness: Unresponsive History of present illness: 65 YO Female with HTN, DE, CAD S/P Stent Placement, Nicotine Dependence, DM, HLD, Seizure Disorder presents to ED for evaluation. Patient is intubated and ambulatory support at the time my evaluation is unable to provide history. Patient agitated when EMS staff, ED staff, as well as the patient's son who was made available by telephone for interview. As per son the patient was in her [facility] state of health on the day prior to admission. 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 Patient son reports that patient began hyperventilating and screaming "help me, help me. EMS was notified and upon arrival the patient was found to be in distress and subsequently lost consciousness and was found to have asystole on ekg monitor tech. Patient was treated" with ACLS protocol with return of perfusing cardiac rhythm. The patient was transported to [facility] for further care and evaluation of the aforementioned symptoms. The patient was seen and evaluated in the emergency department and shortly upon arrival to the emergency department the patient experienced repe ated asystole. Patient was again treated" with ACLS protocol with eventual return of perfusing cardiac rhythm. Patient was found to have acute hypoxemic respiratory failure and was unable to protect her airway and was subsequently intubated while in the emergency department. The patient was also found to have atrial fibrillation with rapid ventricular response, metabolic acidosis, sepsis, toxic metabolic encephalopathy and suspected anoxic brain injury. Patient admitted to ICU and initiated on sepsis protocol. Cardiology team consulted in ED. Critical care team consulted in ED. prior admission on 02/25/2021 reviewed. All medication listed at time of admission has been reconciled. Advanced care planning conducted in ED. currently pt. is on Propofol #15 -EEG is pending -MRI brain is pending -she is not on Keppra currently Past History Past Medical History: CAD, hypertension, seizures, other (See HPI) Past Surgical History: Other (Cardiac stent placement, bladder surgery.) Social history: , smoking. denies: alcohol abuse, prescription drug abuse Family history: diabetes, hypertension Medications and Allergies Allergies Allergy/AdvReac Type Severity Reaction Status Date / Time No Known Allergies Allergy Unverified 05/11/20 05:28 Home Medications Medication Instructions Recorded Confirmed Last Taken Type Aspirin EC [Halfprin EC] 81 mg PO QDAY #30 tablet. 05/16/20 02/27/21 02/26/21 22:00 Rx AtorvaSTATin [Lipitor] 40 mg PO QHS #60 tablet 05/16/20 02/27/21 02/26/21 22:00 Rx Citalopram [Celexa] 20 mg PO QDAY #60 tablet 05/16/20 02/27/21 02/26/21 22:00 Rx Metoprolol [Lopressor TAB] 25 mg PO BID #120 tablet 05/16/20 02/27/21 02/26/21 22:00 Rx Valsartan [Diovan] 80 mg PO BID #60 tablet 05/16/20 02/27/21 02/26/21 Rx amLODIPine 10 mg PO DAILY #60 tablet 05/16/20 02/27/21 02/26/21 22:00 Rx hydrALAZINE [Apresoline TAB] 50 mg PO Q8HR #90 tablet 03/01/21 Unknown Rx levETIRAcetam [Keppra TAB] 500 mg PO BID #60 tablet 03/01/21 Unknown Rx Active Meds: Active Medications Acetaminophen (Acetaminophen 325 Mg Tab) 650 mg PO Q6H PRN PRN Reason: Pain MILD(1-3)/Fever >100.5/SOTOMAYOR Heparin Sodium (Porcine) (Heparin 10,000 Units/10 Ml Vial) 2,700 unit 40 unit/kg (2700 unit) IV Q6H PRN PRN Reason: Anti-Xa Assay < 0.1 units/ml Hydromorphone HCl (Hydromorphone 1 Mg/1 Ml Inj) 0.25 mg IV Q24H PRN PRN Reason: Pain, Moderate (4-6) Propofol (Diprivan 10 Mg/Ml) 1,000 mg in 100 mls @ 2.028 mls/hr IV TITR ABDIRAHMAN; Protocol NORepinephrine/NS 8 MG-250 ML (Norepinephrine/Ns 8 Mg-250 Ml (Double Conc)) 8 mg in 250 mls @ 3.75 mls/hr IV TITRATE ABDIRAHMAN; Protocol Sodium Bicarbonate 150 meq/ (Dextrose) 1,150 mls @ 125 mls/hr IV DIRECT ABDIRAHMAN Heparin Sodium/Sodium Chloride (Heparin/ 0.45% Nacl-25,000 Unit/500 Ml) 25,000 unit in 500 mls @ 20.276 mls/hr IV TITRATE ABDIRAHMAN; Protocol Oxycodone/Acetaminophen (Oxycodone /Acetaminophen 5-325mg Tab) 1 tab PO Q12H PRN PRN Reason: Pain, Moderate (4-6) Sodium Chloride (Sodium Chloride 0.9% 10 Ml Flush Syringe) 10 ml IV BID ABDIRAHMAN Sodium Chloride (Sodium Chloride 0.9% 10 Ml Flush Syringe) 10 ml IV PRN PRN PRN Reason: LINE FLUSH Review of Systems ROS unobtainable: due to endotracheal tube, due to mental status Past History Past Medical History: CAD, hypertension, seizures, other (See HPI) Past Surgical History: Other (Cardiac stent placement, bladder surgery.) Social history: , smoking. denies: alcohol abuse, prescription drug abuse Family history: diabetes, hypertension Medications and Allergies Allergies Allergy/AdvReac Type Severity Reaction Status Date / Time No Known Allergies Allergy Unverified 05/11/20 05:28 Home Medications Medication Instructions Recorded Confirmed Last Taken Type Aspirin EC [Halfprin EC] 81 mg PO QDAY #30 tablet. 05/16/20 05/29/21 02/26/21 22:00 Rx AtorvaSTATin [Lipitor] 40 mg PO QHS #60 tablet 05/16/20 05/29/21 02/26/21 22:00 Rx Citalopram [Celexa] 20 mg PO QDAY #60 tablet 05/16/20 05/29/21 02/26/21 22:00 Rx Metoprolol [Lopressor TAB] 25 mg PO BID #120 tablet 05/16/20 05/29/21 02/26/21 22:00 Rx Valsartan [Diovan] 80 mg PO BID #60 tablet 05/16/20 05/29/21 02/26/21 Rx amLODIPine 10 mg PO DAILY #60 tablet 05/16/20 05/29/21 02/26/21 22:00 Rx hydrALAZINE [Apresoline TAB] 50 mg PO Q8HR #90 tablet 03/01/21 05/29/21 Unknown Rx levETIRAcetam [Keppra TAB] 500 mg PO BID #60 tablet 03/01/21 05/29/21 Unknown Rx Active Meds: Active Medications Acetaminophen (Acetaminophen 325 Mg Tab) 650 mg PO Q6H PRN PRN Reason: Pain MILD(1-3)/Fever >100.5/SOTOMAYOR Last Admin: 05/28/21 04:14 Dose: 650 mg Documented by: Amlodipine Besylate (Amlodipine 10 Mg Tab) 10 mg PO QDAY ABDIRAHMAN Last Admin: 05/28/21 09:47 Dose: 10 mg Documented by: Lipase/Protease/Amylase (Lipase 10,500/Protease 25,000/Amylase 43,750 (Units) Dr Munguia) 1 each FEEDTUBE PRN PRN PRN Reason: For Clogged Feeding Tube Dextrose (Dextrose 50% In Water (25gm) 50 Ml Syringe) 50 ml IV Q30MIN PRN; Protocol PRN Reason: Hypoglycemia Famotidine (Famotidine 20 Mg Tab) 20 mg FEEDTUBE BID ABDIRAHMAN Heparin Sodium (Porcine) (Heparin 10,000 Units/10 Ml Vial) 2,700 unit 40 unit/kg (2700 unit) IV Q6H PRN PRN Reason: Anti-Xa Assay < 0.1 units/ml Hydromorphone HCl (Hydromorphone 1 Mg/1 Ml Inj) 0.25 mg IV Q24H PRN PRN Reason: Pain, Moderate (4-6) Hydrophilic Ointment (Lip Therapy Vaseline) 1 applic TP Q2HR PRN PRN Reason: Dry Lips Propofol (Diprivan 10 Mg/Ml) 1,000 mg in 100 mls @ 2.028 mls/hr IV TITR ABDIRAHMAN; Protocol Last Admin: 05/29/21 04:19 Dose: 15 mcg/kg/min, 6.083 mls/hr Documented by: NORepinephrine/NS 8 MG-250 ML (Norepinephrine/Ns 8 Mg-250 Ml (Double Conc)) 8 mg in 250 mls @ 3.75 mls/hr IV TITRATE ABDIRAHMAN; Protocol Heparin Sodium/Sodium Chloride (Heparin/ 0.45% Nacl-25,000 Unit/500 Ml) 25,000 unit in 500 mls @ 20 mls/hr IV TITRATE ABDIRAHMAN; Protocol Last Admin: 05/29/21 00:31 Dose: 950 units/hr, 19 mls/hr Documented by: Cefepime HCl (Cefepime/Ns 2 Gm/100 Ml) 2 gm in 100 mls @ 200 mls/hr IV Q12H ABDIRAHMAN; Protocol Stop: 05/30/21 11:59 Last Admin: 05/28/21 22:43 Dose: 200 mls/hr Documented by: Midazolam HCl 100 mg/ Sodium (Chloride) 100 mls @ 2 mls/hr IV TITR [facility]; Protocol Last Titration: 05/28/21 20:29 Dose: 2 mg/hr, 2 mls/hr Documented by: Levetiracetam 500 mg/ Dextrose 105 mls @ 400 mls/hr IV Q12H [facility] Last Admin: 05/28/21 20:15 Dose: 400 mls/hr Documented by: Insulin Human Lispro (Insulin Lispro 100 Unit/Ml) 0 unit SUB-Q Q6HR [facility]; Protocol Labetalol HCl (Labetalol 20 Mg/4 Ml Inj) 20 mg IV Q4HR PRN PRN Reason: Hypertension Last Admin: 05/28/21 13:20 Dose: 20 mg Documented by: Lorazepam (Lorazepam 2 Mg/Ml Vial) 2 mg IV ONCE PRN PRN Reason: Seizure Last Admin: 05/26/21 12:50 Dose: 2 mg Documented by: Losartan Potassium (Losartan 50 Mg Tab) 100 mg PO QDAY [facility] Last Admin: 05/28/21 09:47 Dose: 100 mg Documented by: Metoprolol Tartrate (Metoprolol Tartrate 50 Mg Tab) 50 mg FEEDTUBE BID [facility] Last Admin: 05/28/21 22:43 Dose: 50 mg Documented by: Midazolam HCl (Midazolam 2 Mg/2 Ml Inj) 2 mg IV Q10MIN PRN PRN Reason: Sedation Multi-Ingred Cream/Lotion/Oil/Oint (Mineral Oil/Petrolatum, White Ophth Oint 3.5 Gm) 1 applic OU Q4HR PRN PRN Reason: Dry Eye(s) Oxycodone/Acetaminophen (Oxycodone /Acetaminophen 5-325mg Tab) 1 tab PO Q12H PRN PRN Reason: Pain, Moderate (4-6) Senna/Docusate Sodium (Sennosides/Docusate Sodium 8.6/50 Mg Tab) 1 tab FEEDTUBE BID [facility] Last Admin: 05/28/21 22:43 Dose: 1 tab Documented by: Simple Syrup (Simple Syrup 15 Ml) 15 ml FEEDTUBE PRN PRN PRN Reason: Hypoglycemia Simple Syrup (Simple Syrup 15 Ml) 30 ml FEEDTUBE PRN PRN PRN Reason: Hypoglycemia Sodium Bicarbonate (Sodium Bicarbonate 325 Mg Tab) 325 mg FEEDTUBE PRN PRN PRN Reason: For Clogged Feeding Tube Sodium Chloride (Sodium Chloride 0.9% 10 Ml Flush Syringe) 10 ml IV BID ABDIRAHMAN Last Admin: 05/28/21 22:44 Dose: 10 ml Documented by: Sodium Chloride (Sodium Chloride 0.9% 10 Ml Flush Syringe) 10 ml IV PRN PRN PRN Reason: LINE FLUSH Physical Examination - Vital Signs Vital Signs: Vital Signs Resp 15 05/25/21 08:48 - Constitutional General appearance: comfortable - EENT EENT: Present: PERRL, mucous membranes moist - Respiratory Respiratory: Present: chest non-tender, lungs clear, rhonchi - Cardiovascular Cardiovascular: Present: regular rate, normal S1, normal S2 Extremities: Present: no peripheral edema bilatateraly, no clubbing, cyanosis - Gastrointestinal Gastrointestinal: Present: normoactive bowel sounds - Integumentary Integumentary: Present: normal - Neurologic Cranial nerve examination: PERRL, EOMI, face symmetric, other (abset corneal reflexes bilateral.) Speech examination: other (intubated and sedated) Detailed motor examination: other (no response to sternal rub no movment is not ed) Results - Laboratory Findings CBC and BMP: 05/29/21 04:30 05/28/21 04:00 Abnormal Lab Findings: Abnormal Labs 05/25/21 05/25/21 05/25/21 09:07 09:21 09:21 WBC 17.1 H RBC Hgb Hct MCV 106 H MCH 33 H RDW 15.6 H Mcmullen # (Auto) Seg Neutrophils % Seg Neutrophils # Seg Neutrophils # Man 10.1 H Lymphocytes # (Manual) 5.6 H PT 15.0 H APTT 44.3 H D-Dimer > 31851 H Heparin Anti-Xa Level ABG pH 7.116 L POC ABG pO2 ABG pO2 ABG Hemoglobin ABG Oxyhemoglobin 93.7 L ABG Sodium ABG Potassium ABG Glucose 395 H Carboxyhemoglobin Sodium Potassium Carbon Dioxide BUN Glucose POC Glucose Lactic Acid Calcium Ferritin AST ALT Lactate Dehydrogenase Troponin T Total Protein Albumin HDL Cholesterol Arterial Blood Glucose 395 H Arterial Blood Ionized Calcium 4.4 L Urine WBC (Auto) 09/16/21 09/16/21 09/16/21 09:21 09:21 09:21 WBC RBC Hgb Hct MCV MCH RDW Mcmullen # (Auto) Seg Neutrophils % Seg Neutrophils # Seg Neutrophils # Man Lymphocytes # (Manual) PT APTT D-Dimer Heparin Anti-Xa Level ABG pH POC ABG pO2 ABG pO2 ABG Hemoglobin ABG Oxyhemoglobin ABG Sodium ABG Potassium ABG Glucose Carboxyhemoglobin Sodium Potassium Carbon Dioxide 10 L BUN Glucose 423 H 424 H POC Glucose Lactic Acid Calcium 8.2 L Ferritin 321.6 H AST 162 H ALT 119 H Lactate Dehydrogenase 445 H Troponin T Total Protein 5.6 L Albumin 3.2 L HDL Cholesterol Arterial Blood Glucose Arterial Blood Ionized Calcium Urine WBC (Auto) 05/25/21 05/25/21 05/25/21 09:35 10:42 11:12 WBC RBC Hgb Hct MCV MCH RDW Mcmullen # (Auto) Seg Neutrophils % Seg Neutrophils # Seg Neutrophils # Man Lymphocytes # (Manual) PT APTT D-Dimer Heparin Anti-Xa Level ABG pH POC ABG pO2 ABG pO2 ABG Hemoglobin ABG Oxyhemoglobin ABG Sodium ABG Potassium ABG Glucose Carboxyhemoglobin Sodium Potassium Carbon Dioxide BUN Glucose POC Glucose Lactic Acid 16.70 H* 7.70 H* Calcium Ferritin AST ALT Lactate Dehydrogenase Troponin T Total Protein Albumin HDL Cholesterol Arterial Blood Glucose Arterial Blood Ionized Calcium Urine WBC (Auto) 11.0 H 05/25/21 05/25/21 05/25/21 14:07 15:19 19:04 WBC RBC Hgb Hct MCV MCH RDW Mcmullen # (Auto) Seg Neutrophils % Seg Neutrophils # Seg Neutrophils # Man Lymphocytes # (Manual) PT APTT D-Dimer Heparin Anti-Xa Level ABG pH POC ABG pO2 172.2 H ABG pO2 ABG Hemoglobin ABG Oxyhemoglobin 98.7 H ABG Sodium 135.7 L ABG Potassium ABG Glucose 255 H Carboxyhemoglobin 0.3 L Sodium Potassium Carbon Dioxide BUN Glucose POC Glucose Lactic Acid 3.90 H* Calcium Ferritin AST ALT Lactate Dehydrogenase Troponin T 0.226 H* D Total Protein Albumin HDL Cholesterol 64 H Arterial Blood Glucose 255 H Arterial Blood Ionized Calcium 3.8 L Urine WBC (Auto) 05/25/21 05/25/21 05/26/21 21:16 21:16 04:00 WBC RBC Hgb Hct MCV MCH RDW Mcmullen # (Auto) Seg Neutrophils % Seg Neutrophils # Seg Neutrophils # Man Lymphocytes # (Manual) PT APTT D-Dimer Heparin Anti-Xa Level 1.19 H ABG pH 7.547 H POC ABG pO2 ABG pO2 ABG Hemoglobin 11.9 L ABG Oxyhemoglobin ABG Sodium 133.2 L ABG Potassium 3.1 L ABG Glucose 243 H Carboxyhemoglobin 0.3 L Sodium Potassium Carbon Dioxide BUN Glucose POC Glucose Lactic Acid 2.50 H* Calcium Ferritin AST ALT Lactate Dehydrogenase Troponin T Total Protein Albumin HDL Cholesterol Arterial Blood Glucose 243 H Arterial Blood Ionized Calcium Urine WBC (Auto) 05/26/21 05/26/21 05/26/21 05:49 05:49 17:33 WBC RBC Hgb Hct MCV MCH RDW Mcmullen # (Auto) Seg Neutrophils % Seg Neutrophils # Seg Neutrophils # Man Lymphocytes # (Manual) PT APTT D-Dimer Heparin Anti-Xa Level ABG pH POC ABG pO2 ABG pO2 ABG Hemoglobin ABG Oxyhemoglobin ABG Sodium ABG Potassium ABG Glucose Carboxyhemoglobin Sodium Potassium Carbon Dioxide BUN Glucose 226 H POC Glucose 156 H Lactic Acid 2.30 H* Calcium 7.2 L Ferritin AST 111 H ALT 97 H Lactate Dehydrogenase Troponin T Total Protein 5.4 L Albumin 3.3 L HDL Cholesterol Arterial Blood Glucose Arterial Blood Ionized Calcium Urine WBC (Auto) 05/27/21 05/27/21 05/27/21 02:11 02:11 02:11 WBC 14.3 H RBC 3.27 L Hgb Hct MCV 99 H MCH 33 H RDW 15.3 H Mcmullen # (Auto) 1.0 H Seg Neutrophils % Seg Neutrophils # 10.0 H Seg Neutrophils # Man Lymphocytes # (Manual) PT APTT D-Dimer Heparin Anti-Xa Level 0.80 H ABG pH POC ABG pO2 ABG pO2 ABG Hemoglobin ABG Oxyhemoglobin ABG Sodium ABG Potassium ABG Glucose Carboxyhemoglobin Sodium Potassium 2.9 L* D Carbon Dioxide 31 H BUN 6 L Glucose 215 H POC Glucose Lactic Acid Calcium 8.1 L Ferritin AST ALT Lactate Dehydrogenase Troponin T Total Protein Albumin HDL Cholesterol Arterial Blood Glucose Arterial Blood Ionized Calcium Urine WBC (Auto) 05/27/21 05/27/21 05/27/21 11:24 12:49 18:06 WBC RBC Hgb Hct MCV MCH RDW Mcmullen # (Auto) Seg Neutrophils % Seg Neutrophils # Seg Neutrophils # Man Lymphocytes # (Manual) PT APTT D-Dimer Heparin Anti-Xa Level ABG pH POC ABG pO2 ABG pO2 ABG Hemoglobin ABG Oxyhemoglobin ABG Sodium ABG Potassium ABG Glucose Carboxyhemoglobin Sodium Potassium Carbon Dioxide BUN Glucose POC Glucose 151 H 165 H 137 H Lactic Acid Calcium Ferritin AST ALT Lactate Dehydrogenase Troponin T Total Protein Albumin HDL Cholesterol Arterial Blood Glucose Arterial Blood Ionized Calcium Urine WBC (Auto) 05/28/21 05/28/21 05/28/21 04:00 04:00 06:02 WBC 13.5 H RBC 3.05 L Hgb Hct MCV 100 H MCH 34 H RDW Mcmullen # (Auto) 0.9 H Seg Neutrophils % 78.2 H Seg Neutrophils # 10.6 H Seg Neutrophils # Man Lymphocytes # (Manual) PT APTT D-Dimer Heparin Anti-Xa Level ABG pH 7.507 H POC ABG pO2 ABG pO2 ABG Hemoglobin 10.6 L ABG Oxyhemoglobin ABG Sodium 129.4 L ABG Potassium ABG Glucose 243 H Carboxyhemoglobin 0.2 L Sodium 136 L D Potassium Carbon Dioxide BUN Glucose 215 H POC Glucose Lactic Acid Calcium Ferritin AST ALT Lactate Dehydrogenase Troponin T Total Protein Albumin HDL Cholesterol Arterial Blood Glucose 243 H Arterial Blood Ionized Calcium 4.1 L Urine WBC (Auto) 05/28/21 05/28/21 05/29/21 11:27 23:02 04:30 WBC RBC Hgb 9.3 L Hct 26.7 L MCV MCH RDW Mcmullen # (Auto) Seg Neutrophils % Seg Neutrophils # Seg Neutrophils # Man Lymphocytes # (Manual) PT APTT D-Dimer Heparin Anti-Xa Level ABG pH POC ABG pO2 ABG pO2 ABG Hemoglobin ABG Oxyhemoglobin ABG Sodium ABG Potassium ABG Glucose Carboxyhemoglobin Sodium Potassium Carbon Dioxide BUN Glucose POC Glucose 220 H 212 H Lactic Acid Calcium Ferritin AST ALT Lactate Dehydrogenase Troponin T Total Protein Albumin HDL Cholesterol Arterial Blood Glucose Arterial Blood Ionized Calcium Urine WBC (Auto) 05/29/21 05/29/21 05:02 05:28 WBC RBC Hgb Hct MCV MCH RDW Mcmullen # (Auto) Seg Neutrophils % Seg Neutrophils # Seg Neutrophils # Man Lymphocytes # (Manual) PT APTT D-Dimer Heparin Anti-Xa Level ABG pH 7.516 H POC ABG pO2 ABG pO2 96.2 H ABG Hemoglobin 7.5 L ABG Oxyhemoglobin ABG Sodium ABG Potassium ABG Glucose Carboxyhemoglobin Sodium Potassium Carbon Dioxide BUN Glucose POC Glucose 197 H Lactic Acid Calcium Ferritin AST ALT Lactate Dehydrogenase Troponin T Total Protein Albumin HDL Cholesterol Arterial Blood Glucose Arterial Blood Ionized Calcium Urine WBC (Auto) Assessment and Plan Assessment and Plan - Patient Problems # Sepsis -Sepsis protocol: Chest x-ray, CBC, CMP, urinalysis, blood culture, monitor urine output every shift, monitor fluid balance, IV fluid resuscitation therapy, maintain mean arterial pressure greater than or equal to 65, IV pressor support as clinically indicated to maintain mean arterial pressure, serial lactic acid level. # Acute hypoxemic respiratory failure -Patient intubated and on ventilatory support. Critical care team consulted. Wean vent as tolerated, daily spontaneous breathing trial, sedation holiday, supportive care, arterial blood gas. # Toxic metabolic encephalopathy -Supportive care, neuro check, CT scan head, treat sepsis, # Anoxic brain injury Supportive care, neuro check, repeat CT scan brain when medically stable. # Cardiac arrest -Patient treated" with ACLS protocol with return of perfusing cardiac rhythm. # Atrial fibrillation with RVR -Cardiology team consulted, continue therapeutic anticoagulation as per cardiology team, supportive care., Rate control. # Metabolic acidosis -IV fluid resuscitation therapy, bicarbonate drip. # Seizure -Neuro check, antiepileptic therapy with [id number] mg Iv bid -EEG today r/o status -MRI brain # DVT prophylaxis -SCD to bilateral lower extremities while in bed, continue therapeutic anticoagulation # Advance care planning -Disease education conducted, care plan discussed, diagnoses discussed, poor prognosis discussed, patient is full code, patient son Antwon Higginbotham acknowledges understanding and agreement with care plan, +30 minutes. The high probability of a clinically significant, sudden or life threatening deterioration of the [cardiac, pulmonary, neuro, renal] system(s) required my full and direct attention, intervention and personal management. The aggregate critical care time was [65] minutes. This time is in addition to time spent performing reported procedures but includes the following: [x] Data Review and interpretation [x] Patient assessment and monitoring of vital signs [x] Documentation [x] Medication orders and management PLAN 1- MRI brain when possible 2- STAT EEG r/o status epilepticus 3- Keppra 1000 mg IV bid will follow
[2021-05-29] MEDS: LOSARTAN 50 MG TAB PO SCH (10:02)
[2021-05-29] MEDS: amLODIPine 10 MG TAB PO SCH (10:02)
[2021-05-29] MEDS: SENNOSIDES/DOCUSATE SODIUM 8.6/50 MG TAB FEEDTUBE SCH ×2 (10:02→22:08)
[2021-05-29] MEDS: METOPROLOL TARTRATE 50 MG TAB FEEDTUBE SCH ×2 (10:03→22:08)
[2021-05-29] MEDS: FAMOTIDINE 20 MG TAB FEEDTUBE SCH ×2 (10:03→22:08)
[2021-05-29] MEDS: levETIRAcetam 500 MG in DEXTROSE 5% IN WATER 100 ML IV SCH (10:06)
--- NOTE | 2021-05-29 10:33 | Progress Note ---
Assessment and Plan Acute hypoxemic respiratory failure on MVS s/p Cardiopulmonary arrest wtih ROSC h/o Seizure disorder Sepsis Toxic metabolic encephalopathy, possible anoxia Atrial fibrillation with RVR Metabolic acidosis Bilateral lower lobe infiltrates on imaging Discontinue Femoral CVL SAT,SBT today Await Neurology recommendations Critical care bundles addressed ABG, CXR in am -daily SAT and SBT - continue to titrate supplemental oxygen to keep SpO2 88-90% - VAP bundle addressed, aspiration precautions HOB >30 - continue lung protective strategies - continue bronchodilators (MARY & LABA) with pulmonary hygiene per RT - daily assessment for readiness to wean, SAT and SBT -EEG ordered and Neurology consult per hospitalist service -Accuchecks with glycemic control per SSI (While critically ill target blood glucose of 140-180 mg/dL; avoid hypoglycemia) -Enteric nutritional support. Was started on sliding scale insulin yesterday. Monitor blood sugar - sedation prn for target RASS 0 to -1 - avoid nephrotoxins, renally dose all medications -Conservative fluid management - Empiric antibiotics ( Cefepime) for sepsis. De-escalate based on culture data and clinical response -Follow cultures( no growth to date, Sputum GPC in pairs) - prn analgesia per CPOT score - Maintenance of sleep-wake cycle, avoid delirium - Stress ulcer prophylaxis- Famotidine -VTE prophylaxis, on therapeutic heparin for Atrial fibrillation - mobility, off loading, frequent turning per facility protocol for pressure ulcer prevention - Monitor hemodynamics closely - continue other care per attending / other consultants COVID SPECIFIC INTERVENTIONS -Negative CONDITION: CRITICAL PROGNOSIS: GUARDED CODE STATUS: FULL CODE Discussed extensively with the son at the bedside and answered all his questions Discussed with hospitalist service The high probability of a clinically significant, sudden or life-threatening deterioration of the [respiratory, cardiovascular, neurologic] system(s) required my full and direct attention, intervention and personal management. The aggregate critical care time was [35] minutes without overlap. Time includes spent on; [x] Data Review and interpretation [x] Patient assessment and monitoring of vital signs [x] Documentation [x] Medication orders and management Subjective Date of service: 05/29/21 Interval history: Summary per medical records. Information verified at the bedside with her son 65 YO Female with HTN, CA, CAD S/P Stent Placement, Nicotine Dependence, DM, HLD, Seizure Disorder presents to ED for evaluation. Patient is intubated and ambulatory support at the time my evaluation is unable to provide history. Patient agitated when EMS staff, ED staff, as well as the patient's son who was made available by telephone for interview. As per son the patient was in her usual state of health on the day prior to admission. 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 Patient son reports that patient began hyperventilating and screaming "help me, help me. EMS was notified and upon arrival the patient was found to be in distress and subsequently lost consciousness and was found to have asystole on monitoring manager. Patient was treated" with ACLS protocol with return of perfusing cardiac rhythm. The patient was transported to [facility] for further care and evaluation of the aforementioned symptoms. The patient was seen and evaluated in the emergency department and shortly upon arrival to the emergency department the patient experienced repeated asystole. Patient was again treated" with ACLS protocol with eventual return of perfusing cardiac rhythm. Patient was found to have acute hypoxemic respiratory failure and was unable to protect her airway and was subsequently intubated while in the emergency department. The patient was also found to have atrial fibrillation with rapid ventricular response, metabolic acidosis, sepsis, toxic metabolic encephalopathy and suspected anoxic brain injury. Patient admitted to ICU and initiated on sepsis protocol. Follow up for: acute hypoxemic resp failure; s/p cardiopulmonary arrest with ROSC; Seizure disorder Patient seen and examined. Vitals, labs, medications, chart reviewed. Son at the bedside. No fevers, no vom iting. 05/26/2021 Orally intubated on MVS, OGT in place Sedated on Midazolam and Propofol, just received one dose of Lorazepam for witnessed seizure by RN On bicarbonate infusion Discussed with respiratory and nursing 05/27/2021 Remains on MVS ACVC 20/450/+10/40% ABG 7.35/32/97.8/27.4 Gets hypertensive when sedation is weaned down. Remains on heparin infusion for Afib On Cefepime Discussed with respiratory and nursing staff 05/29/21 Remains on MVS ACVC- 20/450/+8/30% Midazolam at 2mg and Propofol at 15. Has a cough and gag reflex, pupils reactive to light. Tolerating tube feedings, glycemic control remains sub-optimal On Cefepime D5/5 EEG pending, Neurology consult pending No fevers, no diarrhea, no vomiting reported Discussed with respiratory, nursing and pharmacy during IDT rounds Objective Vital Signs - 12hr 05/28/21 05/28/21 05/28/21 22:30 22:43 22:45 Temperature Pulse Rate 70 71 72 Pulse Rate [ From Monitor] Pulse Rate [ Left Dorsalis Pedis] Pulse Rate [ Right Dorsalis Pedis] Respiratory 20 20 Rate Blood Pressure 138/65 138/65 143/68 O2 Sat by Pulse 99 99 Oximetry 05/28/21 05/28/21 05/28/21 23:00 23:10 23:15 Temperature Pulse Rate 70 71 71 Pulse Rate [ From Monitor] Pulse Rate [ Left Dorsalis Pedis] Pulse Rate [ Right Dorsalis Pedis] Respiratory 20 20 Rate Blood Pressure 141/68 143/68 142/67 O2 Sat by Pulse 99 99 99 Oximetry 05/28/21 05/28/21 05/28/21 23:30 23:45 23:59 Temperature Pulse Rate 72 70 71 Pulse Rate [ From Monitor] Pulse Rate [ Left Dorsalis Pedis] Pulse Rate [ Right Dorsalis Pedis] Respiratory 20 20 20 Rate Blood Pressure 140/67 139/68 139/68 O2 Sat by Pulse 99 99 99 Oximetry 05/29/21 05/29/21 05/29/21 00:00 00:15 00:30 Temperature 97.0 F L Pulse Rate 71 70 71 Pulse Rate [ 71 From Monitor] Pulse Rate [ 71 Left Dorsalis Pedis] Pulse Rate [ 71 Right Dorsalis Pedis] Respiratory 20 20 20 Rate Blood Pressure 140/65 141/64 142/71 O2 Sat by Pulse 99 99 99 Oximetry 05/29/21 05/29/21 05/29/21 00:45 01:00 01:15 Temperature Pulse Rate 75 73 73 Pulse Rate [ From Monitor] Pulse Rate [ Left Dorsalis Pedis] Pulse Rate [ Right Dorsalis Pedis] Respiratory 20 20 20 Rate Blood Pressure 161/74 148/64 149/71 O2 Sat by Pulse 100 100 99 Oximetry 05/29/21 05/29/21 05/29/21 01:30 01:45 02:00 Temperature Pulse Rate 72 72 72 Pulse Rate [ From Monitor] Pulse Rate [ Left Dorsalis Pedis] Pulse Rate [ Right Dorsalis Pedis] Respiratory 20 20 20 Rate Blood Pressure 147/72 144/70 148/70 O2 Sat by Pulse 100 99 99 Oximetry 09/05/29/21 05/29/21 02:15 02:30 02:45 Temperature Pulse Rate 73 71 Pulse Rate [ From Monitor] Pulse Rate [ Left Dorsalis Pedis] Pulse Rate [ Right Dorsalis Pedis] Respiratory 20 20 Rate Blood Pressure 159/76 154/72 147/70 O2 Sat by Pulse 100 100 99 Oximetry 05/29/21 05/29/21 05/29/21 03:00 03:15 03:21 Temperature 97.1 F L Pulse Rate 70 70 Pulse Rate [ From Monitor] Pulse Rate [ Left Dorsalis Pedis] Pulse Rate [ Right Dorsalis Pedis] Respiratory 20 20 Rate Blood Pressure 150/73 149/69 O2 Sat by Pulse 99 99 Oximetry 05/29/21 05/29/21 05/29/21 03:22 03:30 03:45 Temperature 97.1 F L Pulse Rate 69 69 Pulse Rate [ From Monitor] Pulse Rate [ Left Dorsalis Pedis] Pulse Rate [ Right Dorsalis Pedis] Respiratory 20 20 Rate Blood Pressure 149/69 151/73 O2 Sat by Pulse 100 100 Oximetry 05/29/21 05/29/21 05/29/21 04:00 04:15 04:30 Temperature Pulse Rate 69 73 70 Pulse Rate [ From Monitor] Pulse Rate [ Left Dorsalis Pedis] Pulse Rate [ Right Dorsalis Pedis] Respiratory 20 20 20 Rate Blood Pressure 147/67 159/76 153/71 O2 Sat by Pulse 100 100 100 Oximetry 05/29/21 05/29/21 05/29/21 04:45 05:00 05:10 Temperature Pulse Rate 70 70 69 Pulse Rate [ From Monitor] Pulse Rate [ Left Dorsalis Pedis] Pulse Rate [ Right Dorsalis Pedis] Respiratory 20 20 Rate Blood Pressure 151/71 150/70 151/71 O2 Sat by Pulse 100 100 100 Oximetry 05/29/21 05/29/21 05/29/21 05:15 05:30 05:45 Temperature Pulse Rate 70 71 72 Pulse Rate [ From Monitor] Pulse Rate [ Left Dorsalis Pedis] Pulse Rate [ Right Dorsalis Pedis] Respiratory 20 20 20 Rate Blood Pressure 152/72 160/75 168/82 O2 Sat by Pulse 100 100 100 Oximetry 05/29/21 05/29/21 05/29/21 06:00 06:15 06:30 Temperature Pulse Rate 72 72 73 Pulse Rate [ From Monitor] Pulse Rate [ Left Dorsalis Pedis] Pulse Rate [ Right Dorsalis Pedis] Respiratory 20 20 20 Rate Blood Pressure 171/82 161/79 166/81 O2 Sat by Pulse 100 100 100 Oximetry 05/29/21 05/29/21 05/29/21 06:45 07:00 07:15 Temperature Pulse Rate 71 72 70 Pulse Rate [ From Monitor] Pulse Rate [ Left Dorsalis Pedis] Pulse Rate [ Right Dorsalis Pedis] Respiratory 20 20 20 Rate Blood Pressure 159/75 160/79 159/77 O2 Sat by Pulse 100 100 100 Oximetry 05/29/21 05/29/21 05/29/21 07:30 07:45 08:00 Temperature 97.7 F Pulse Rate 71 70 73 Pulse Rate [ From Monitor] Pulse Rate [ Left Dorsalis Pedis] Pulse Rate [ Right Dorsalis Pedis] Respiratory 20 20 20 Rate Blood Pressure 159/72 157/73 161/79 O2 Sat by Pulse 100 100 100 Oximetry 05/29/21 05/29/21 05/29/21 08:15 08:28 08:30 Temperature Pulse Rate 70 69 70 Pulse Rate [ From Monitor] Pulse Rate [ Left Dorsalis Pedis] Pulse Rate [ Right Dorsalis Pedis] Respiratory 20 20 Rate Blood Pressure 160/76 165/77 165/77 O2 Sat by Pulse 100 100 100 Oximetry 05/29/21 05/29/21 05/29/21 08:45 09:00 09:15 Temperature Pulse Rate 71 73 73 Pulse Rate [ From Monitor] Pulse Rate [ Left Dorsalis Pedis] Pulse Rate [ Right Dorsalis Pedis] Respiratory 20 20 20 Rate Blood Pressure 155/70 160/75 163/75 O2 Sat by Pulse 100 100 100 Oximetry 05/29/21 05/29/21 05/29/21 09:30 09:45 10:00 Temperature Pulse Rate 73 72 73 Pulse Rate [ From Monitor] Pulse Rate [ Left Dorsalis Pedis] Pulse Rate [ Right Dorsalis Pedis] Respiratory 20 20 20 Rate Blood Pressure 163/78 158/75 160/75 O2 Sat by Pulse 100 100 100 Oximetry 05/29/21 05/29/21 10:02 10:03 Temperature Pulse Rate 73 73 Pulse Rate [ From Monitor] Pulse Rate [ Left Dorsalis Pedis] Pulse Rate [ Right Dorsalis Pedis] Respiratory Rate Blood Pressure 160/75 160/75 O2 Sat by Pulse Oximetry Constitutional: no acute distress, other (sedated, orally intubated, no distress) Eyes: non-icteric ENT: oropharynx moist, other (ETT at 23cm [place]IN) Neck: supple, no lymphadenopathy Effort: normal Ascultation: Bilateral: diminished breath sounds, rhonchi (lung bases anteriorly) Cardiovascular: irregular rhythm, other (S1,S2) Gastrointestinal: normoactive bowel sounds, soft, non-tender, non-distended Integumentary: normal Extremities: no cyanosis, pink and warm, pulses normal, other (Right femoral CVL) Neurologic: pupils equal and round, other (sedated) Psychiatric: other (unable to assess) CBC and BMP: 05/29/21 04:30 05/28/21 04:00 ABG, PT/INR, D-dimer: ABG ABG pH 7.516 pH Units (7.350-7.450) H 05/29/21 05:28 POC ABG pCO2 33.4 mmHg (32.0-48.0) 05/28/21 06:02 ABG pCO2 30.3 mm Hg 05/29/21 05:28 POC ABG pO2 89.8 mmHg (83-108) 05/28/21 06:02 ABG pO2 96.2 mm Hg (80.0-90.0) H 05/29/21 05:28 POC ABG HCO3 25.9 05/28/21 06:02 ABG O2 Saturation 97.8 % (95.0-99.0) 05/29/21 05:28 PT/INR, D-dimer PT 15.0 Sec. (12.2-14.9) H 05/25/21 09:21 INR 1.13 (0.87-1.13) 05/25/21 09:21 D-Dimer > 74028 ng/mlDDU (0-234) H 05/25/21 09:21 Abnormal lab findings: Abnormal Labs 05/25/21 05/25/21 05/25/21 09:07 09: 09:21 WBC 17.1 H RBC Hgb Hct MCV 106 H MCH 33 H RDW 15.6 H [place] # (Auto) Seg Neutrophils % Seg Neutrophils # Seg Neutrophils # Man 10.1 H Lymphocytes # (Manual) 5.6 H PT 15.0 H APTT 44.3 H D-Dimer > 75570 H Heparin Anti-Xa Level ABG pH 7.116 L POC ABG pO2 ABG pO2 ABG Hemoglobin ABG Oxyhemoglobin 93.7 L ABG Sodium ABG Potassium ABG Glucose 395 H Carboxyhemoglobin Sodium Potassium Carbon Dioxide BUN Glucose POC Glucose Lactic Acid Calcium Ferritin AST ALT Lactate Dehydrogenase Troponin T Total Protein Albumin HDL Cholesterol Arterial Blood Glucose 395 H Arterial Blood Ionized Calcium 4.4 L Urine WBC (Auto) 05/25/21 05/25/21 05/25/21 09:21 09:21 09:21 WBC RBC Hgb Hct MCV MCH RDW [place] # (Auto) Seg Neutrophils % Seg Neutrophils # Seg Neutrophils # Man Lymphocytes # (Manual) PT APTT D-Dimer Heparin Anti-Xa Level ABG pH POC ABG pO2 ABG pO2 ABG Hemoglobin ABG Oxyhemoglobin ABG Sodium ABG Potassium ABG Glucose Carboxyhemoglobin Sodium Potassium Carbon Dioxide 10 L BUN Glucose 423 H 424 H POC Glucose Lactic Acid Calcium 8.2 L Ferritin 321.6 H AST 162 H ALT 119 H Lactate Dehydrogenase 445 H Troponin T Total Protein 5.6 L Albumin 3.2 L HDL Cholesterol Arterial Blood Glucose Arterial Blood Ionized Calcium Urine WBC (Auto) 05/25/21 05/25/21 05/25/21 09:35 10:42 11:12 WBC RBC Hgb Hct MCV MCH RDW [place] # (Auto) Seg Neutrophils % Seg Neutrophils # Seg Neutrophils # Man Lymphocytes # (Manual) PT APTT D-Dimer Heparin Anti-Xa Level ABG pH POC ABG pO2 ABG pO2 ABG Hemoglobin ABG Oxyhemoglobin ABG Sodium ABG Potassium ABG Glucose Carboxyhemoglobin Sodium Potassium Carbon Dioxide BUN Glucose POC Glucose Lactic Acid 16.70 H* 7.70 H* Calcium Ferritin AST ALT Lactate Dehydrogenase Troponin T Total Protein Albumin HDL Cholesterol Arterial Blood Glucose Arterial Blood Ionized Calcium Urine WBC (Auto) 11.0 H 05/25/21 05/25/21 05/25/21 14:07 15:19 19:04 WBC RBC Hgb Hct MCV MCH RDW [place] # (Auto) Seg Neutrophils % Seg Neutrophils # Seg Neutrophils # Man Lymphocytes # (Manual) PT APTT D-Dimer Heparin Anti-Xa Level ABG pH POC ABG pO2 172.2 H ABG pO2 ABG Hemoglobin ABG Oxyhemoglobin 98.7 H ABG Sodium 135.7 L ABG Potassium ABG Glucose 255 H Carboxyhemoglobin 0.3 L Sodium Potassium Carbon Dioxide BUN Glucose POC Glucose Lactic Acid 3.90 H* Calcium Ferritin AST ALT Lactate Dehydrogenase Troponin T 0.226 H* D Total Protein Albumin HDL Cholesterol 64 H Arterial Blood Glucose 255 H Arterial Blood Ionized Calcium 3.8 L Urine WBC (Auto) 05/25/21 05/25/21 05/26/21 21:16 21:16 04:00 WBC RBC Hgb Hct MCV MCH RDW [place] # (Auto) Seg Neutrophils % Seg Neutrophils # Seg Neutrophils # Man Lymphocytes # (Manual) PT APTT D-Dimer Heparin Anti-Xa Level 1.19 H ABG pH 7.547 H POC ABG pO2 ABG pO2 ABG Hemoglobin 11.9 L ABG Oxyhemoglobin ABG Sodium 133.2 L ABG Potassium 3.1 L ABG Glucose 243 H Carboxyhemoglobin 0.3 L Sodium Potassium Carbon Dioxide BUN Glucose POC Glucose Lactic Acid 2.50 H* Calcium Ferritin AST ALT Lactate Dehydrogenase Troponin T Total Protein Albumin HDL Cholesterol Arterial Blood Glucose 243 H Arterial Blood Ionized Calcium Urine WBC (Auto) 05/26/21 05/26/21 05/26/21 05:49 05:49 17:33 WBC RBC Hgb Hct MCV MCH RDW [place] # (Auto) Seg Neutrophils % Seg Neutrophils # Seg Neutrophils # Man Lymphocytes # (Manual) PT APTT D-Dimer Heparin Anti-Xa Level ABG pH POC ABG pO2 ABG pO2 ABG Hemoglobin ABG Oxyhemoglobin ABG Sodium ABG Potassium ABG Glucose Carboxyhemoglobin Sodium Potassium Carbon Dioxide BUN Glucose 226 H POC Glucose 156 H Lactic Acid 2.30 H* Calcium 7.2 L Ferritin AST 111 H ALT 97 H Lactate Dehydrogenase Troponin T Total Protein 5.4 L Albumin 3.3 L HDL Cholesterol Arterial Blood Glucose Arterial Blood Ionized Calcium Urine WBC (Auto) 05/27/21 05/27/21 05/27/21 02:11 02:11 02:11 WBC 14.3 H RBC 3.27 L Hgb Hct MCV 99 H MCH 33 H RDW 15.3 H [place] # (Auto) 1.0 H Seg Neutrophils % Seg Neutrophils # 10.0 H Seg Neutrophils # Man Lymphocytes # (Manual) PT APTT D-Dimer Heparin Anti-Xa Level 0.80 H ABG pH POC ABG pO2 ABG pO2 ABG Hemoglobin ABG Oxyhemoglobin ABG Sodium ABG Potassium ABG Glucose Carboxyhemoglobin Sodium Potassium 2.9 L* D Carbon Dioxide 31 H BUN 6 L Glucose 215 H POC Glucose Lactic Acid Calcium 8.1 L Ferritin AST ALT Lactate Dehydrogenase Troponin T Total Protein Albumin HDL Cholesterol Arterial Blood Glucose Arterial Blood Ionized Calcium Urine WBC (Auto) 05/27/21 05/27/21 05/27/21 11:24 12:49 18:06 WBC RBC Hgb Hct MCV MCH RDW [place] # (Auto) Seg Neutrophils % Seg Neutrophils # Seg Neutrophils # Man Lymphocytes # (Manual) PT APTT D-Dimer Heparin Anti-Xa Level ABG pH POC ABG pO2 ABG pO2 ABG Hemoglobin ABG Oxyhemoglobin ABG Sodium ABG Potassium ABG Glucose Carboxyhemoglobin Sodium Potassium Carbon Dioxide BUN Glucose POC Glucose 151 H 165 H 137 H Lactic Acid Calcium Ferritin AST ALT Lactate Dehydrogenase Troponin T Total Protein Albumin HDL Cholesterol Arterial Blood Glucose Arterial Blood Ionized Calcium Urine WBC (Auto) 05/28/21 05/28/21 05/28/21 04:00 04:00 06:02 WBC 13.5 H RBC 3.05 L Hgb Hct MCV 100 H MCH 34 H RDW [place] # (Auto) 0.9 H Seg Neutrophils % 78.2 H Seg Neutrophils # 10.6 H Seg Neutrophils # Man Lymphocytes # (Manual) PT APTT D-Dimer Heparin Anti-Xa Level ABG pH 7.507 H POC ABG pO2 ABG pO2 ABG Hemoglobin 10.6 L ABG Oxyhemoglobin ABG Sodium 129.4 L ABG Potassium ABG Glucose 243 H Carboxyhemoglobin 0.2 L Sodium 136 L D Potassium Carbon Dioxide BUN Glucose 215 H POC Glucose Lactic Acid Calcium Ferritin AST ALT Lactate Dehydrogenase Troponin T Total Protein Albumin HDL Cholesterol Arterial Blood Glucose 243 H Arterial Blood Ionized Calcium 4.1 L Urine WBC (Auto) 05/28/21 05/28/21 05/29/21 11:27 23:02 04:30 WBC RBC Hgb 9.3 L Hct 26.7 L MCV MCH RDW [place] # (Auto) Seg Neutrophils % Seg Neutrophils # Seg Neutrophils # Man Lymphocytes # (Manual) PT APTT D-Dimer Heparin Anti-Xa Level ABG pH POC ABG pO2 ABG pO2 ABG Hemoglobin ABG Oxyhemoglobin ABG Sodium ABG Potassium ABG Glucose Carboxyhemoglobin Sodium Potassium Carbon Dioxide BUN Glucose POC Glucose 220 H 212 H Lactic Acid Calcium Ferritin AST ALT Lactate Dehydrogenase Troponin T Total Protein Albumin HDL Cholesterol Arterial Blood Glucose Arterial Blood Ionized Calcium Urine WBC (Auto) 05/29/21 05/29/21 05:02 05:28 WBC RBC Hgb Hct MCV MCH RDW [place] # (Auto) Seg Neutrophils % Seg Neutrophils # Seg Neutrophils # Man Lymphocytes # (Manual) PT APTT D-Dimer Heparin Anti-Xa Level ABG pH 7.516 H POC ABG pO2 ABG pO2 96.2 H ABG Hemoglobin 7.5 L ABG Oxyhemoglobin ABG Sodium ABG Potassium ABG Glucose Carboxyhemoglobin Sodium Potassium Carbon Dioxide BUN Glucose POC Glucose 197 H Lactic Acid Calcium Ferritin AST ALT Lactate Dehydrogenase Troponin T Total Protein Albumin HDL Cholesterol Arterial Blood Glucose Arterial Blood Ionized Calcium Urine WBC (Auto) Chest x-ray: image reviewed Allied health notes reviewed: RT
--- NOTE | 2021-05-29 11:24 | Progress Note ---
Assessment and Plan - Patient Problems (1) Respiratory failure Current Visit: Yes Status: Acute Plan to address problem: Admitted with syncope and cardiopulmonary arrest, suspect that syncope was initiated by a prolonged seizure episode. (2) Atrial fibrillation Current Visit: Yes Status: Acute Plan to address problem: Transient atrial fibrillation occurred during resuscitative measures for the patient's syncope and asystolic cardiopulmonary arrest. Subjective Date of service: 05/29/21 Interval history: Patient is unresponsive on the vent. 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 Blood pressure is 150 systolic. Objective Vital Signs Temp Pulse Pulse Pulse Pulse Resp BP 05/29/21 10:03 73 160/75 05/29/21 10:02 73 160/75 05/29/21 10:00 73 20 160/75 05/29/21 09:45 72 20 158/75 05/29/21 09:30 73 20 163/78 05/29/21 09:15 73 20 163/75 05/29/21 09:00 73 20 160/75 05/29/21 08:45 71 20 155/70 05/29/21 08:30 70 20 165/77 05/29/21 08:28 69 165/77 05/29/21 08:15 70 20 160/76 05/29/21 08:00 97.7 F 73 20 161/79 05/29/21 07:45 70 20 157/73 05/29/21 07:30 71 20 159/72 05/29/21 07:15 70 20 159/77 05/29/21 07:00 72 20 160/79 05/29/21 06:45 71 20 159/75 05/29/21 06:30 73 20 166/81 05/29/21 06:15 72 20 161/79 05/29/21 06:00 72 20 171/82 05/29/21 05:45 72 20 168/82 05/29/21 05:30 71 20 160/75 05/29/21 05:15 70 20 152/72 05/29/21 05:10 69 151/71 05/29/21 05:00 70 20 150/70 05/29/21 04:45 70 20 151/71 05/29/21 04:30 70 20 153/71 05/29/21 04:15 73 20 159/76 05/29/21 04:00 69 20 147/67 05/29/21 03:45 69 20 151/73 05/29/21 03:30 69 20 149/69 05/29/21 03:22 97.1 F L 05/29/21 03:21 97.1 F L 05/29/21 03:15 70 20 149/69 05/29/21 03:00 70 20 150/73 05/29/21 02:45 71 20 147/70 05/29/21 02:30 73 20 154/72 05/29/21 02:15 159/76 05/29/21 02:00 72 20 148/70 05/29/21 01:45 72 20 144/70 05/29/21 01:30 72 20 147/72 05/29/21 01:15 73 20 149/71 05/29/21 01:00 73 20 148/64 05/29/21 00:45 75 20 161/74 05/29/21 00:30 71 20 142/71 05/29/21 00:15 70 20 141/64 05/29/21 00:00 97.0 F L 71 71 71 71 20 140/65 05/28/21 23:59 71 20 139/68 05/28/21 23:45 70 20 139/68 05/28/21 23:30 72 20 140/67 05/28/21 23:15 71 20 142/67 05/28/21 23:10 71 143/68 05/28/21 23:00 70 20 141/68 05/28/21 22:45 72 20 143/68 05/28/21 22:43 71 138/65 05/28/21 22:30 70 20 138/65 05/28/21 22:15 70 20 143/65 05/28/21 22:00 71 21 137/63 05/28/21 21:45 70 20 135/66 05/28/21 21:30 70 20 138/65 05/28/21 21:15 70 20 137/66 05/28/21 21:00 70 20 138/64 05/28/21 20:45 83 20 05/28/21 20:30 72 20 147/70 05/28/21 20:15 75 20 147/70 05/28/21 20:00 99.1 F 74 72 72 72 14 134/58 05/28/21 19:45 74 20 129/59 05/28/21 19:33 99.1 F 05/28/21 19:30 75 20 131/57 05/28/21 19:28 76 127/56 05/28/21 19:15 76 20 130/58 05/28/21 19:00 75 20 127/56 05/28/21 18:45 78 20 132/56 05/28/21 18:30 78 20 132/59 05/28/21 18:15 80 20 138/59 05/28/21 18:00 82 20 138/66 05/28/21 17:45 82 20 143/62 05/28/21 17:30 82 20 147/62 05/28/21 17:19 100.7 F H 05/28/21 17:15 84 20 152/66 05/28/21 17:00 85 23 151/71 05/28/21 16:45 86 17 164/73 05/28/21 16:30 86 16 160/72 05/28/21 16:15 86 24 154/66 05/28/21 16:01 92 H 14 185/101 05/28/21 16:00 93 H 92 H 14 05/28/21 15:45 86 26 H 171/79 05/28/21 15:37 88 171/77 05/28/21 15:30 86 30 H 171/77 05/28/21 15:15 88 31 H 167/77 05/28/21 15:00 84 27 H 165/73 05/28/21 14:45 83 31 H 168/83 05/28/21 14:30 82 28 H 160/78 05/28/21 14:15 80 22 160/69 05/28/21 14:00 79 22 158/74 05/28/21 13:45 80 19 157/75 05/28/21 13:31 81 31 H 160/76 05/28/21 13:20 80 220/87 05/28/21 13:15 84 36 H 220/87 05/28/21 13:01 83 42 H 185/71 05/28/21 12:45 79 24 147/71 05/28/21 12:31 78 22 134/80 05/28/21 12:20 93 H 220/87 05/28/21 12:15 72 20 147/71 05/28/21 12:00 83 68 42 H 185/71 05/28/21 11:45 69 20 135/62 05/28/21 11:41 98.1 F 05/28/21 11:30 70 20 137/64 Pulse Ox 05/29/21 10:03 05/29/21 10:02 05/29/21 10:00 100 05/29/21 09:45 100 05/29/21 09:30 100 05/29/21 09:15 100 05/29/21 09:00 100 05/29/21 08:45 100 05/29/21 08:30 100 05/29/21 08:28 100 05/29/21 08:15 100 05/29/21 08:00 100 05/29/21 07:45 100 05/29/21 07:30 100 05/29/21 07:15 100 05/29/21 07:00 100 05/29/21 06:45 100 05/29/21 06:30 100 05/29/21 06:15 100 05/29/21 06:00 100 05/29/21 05:45 100 05/29/21 05:30 100 05/29/21 05:15 100 05/29/21 05:10 100 05/29/21 05:00 100 05/29/21 04:45 100 05/29/21 04:30 100 05/29/21 04:15 100 05/29/21 04:00 100 05/29/21 03:45 100 05/29/21 03:30 100 05/29/21 03:22 05/29/21 03:21 05/29/21 03:15 99 05/29/21 03:00 99 05/29/21 02:45 99 05/29/21 02:30 100 05/29/21 02:15 100 05/29/21 02:00 99 05/29/21 01:45 99 05/29/21 01:30 100 05/29/21 01:15 99 05/29/21 01:00 100 05/29/21 00:45 100 05/29/21 00:30 99 05/29/21 00:15 99 05/29/21 00:00 99 05/28/21 23:59 99 05/28/21 23:45 99 05/28/21 23:30 99 05/28/21 23:15 99 05/28/21 23:10 99 05/28/21 23:00 99 05/28/21 22:45 99 05/28/21 22:43 05/28/21 22:30 99 05/28/21 22:15 99 05/28/21 22:00 98 05/28/21 21:45 98 05/28/21 21:30 98 05/28/21 21:15 98 05/28/21 21:00 98 05/28/21 20:45 94 05/28/21 20:30 96 05/28/21 20:15 96 05/28/21 20:00 96 05/28/21 19:45 97 05/28/21 19:33 05/28/21 19:30 97 05/28/21 19:28 97 05/28/21 19:15 97 05/28/21 19:00 97 05/28/21 18:45 96 05/28/21 18:30 96 05/28/21 18:15 96 05/28/21 18:00 95 05/28/21 17:45 94 05/28/21 17:30 95 05/28/21 17:19 05/28/21 17:15 95 05/28/21 17:00 95 05/28/21 16:45 97 05/28/21 16:30 96 05/28/21 16:15 95 05/28/21 16:01 95 05/28/21 16:00 95 05/28/21 15:45 96 05/28/21 15:37 95 05/28/21 15:30 95 05/28/21 15:15 96 05/28/21 15:00 96 05/28/21 14:45 96 05/28/21 14:30 96 05/28/21 14:15 96 05/28/21 14:00 96 05/28/21 13:45 95 05/28/21 13:31 91 05/28/21 13:20 05/28/21 13:15 93 05/28/21 13:01 91 05/28/21 12:45 94 05/28/21 12:31 93 05/28/21 12:20 93 05/28/21 12:15 97 05/28/21 12:00 91 05/28/21 11:45 98 05/28/21 11:41 05/28/21 11:30 98 - Physical Examination General: Other (intubated on the vent) HEENT: Positive: Other (Pupils for) Neck: Positive: neck supple Cardiac: Positive: Reg Rate and Rhythm Lungs: Positive: Decreased Breath Sounds Neuro: Positive: Weakness (Unresponsive, on the vent) Abdomen: Positive: Soft Skin: Positive: Clear Extremities: Absent: edema - Labs and Meds CBC 05/29/21 Range/Units 04:30 Hgb 9.3 L (10.1-14.3) gm/dl Hct 26.7 L (30.3-42.9) % Plt Count 158 (140-440) K/mm3 - Allied health notes Allied health notes reviewed: RT
[2021-05-29] MEDS: INSULIN LISPRO 100 UNIT/ML SUB-Q SCH ×3 (13:05→23:36)
[2021-05-29] MEDS: CEFEPIME/NS 2 GM/100 ML 2 GM/100 ML BAG IV SCH ×2 (15:19→23:27)
--- NOTE | 2021-05-29 17:50 | Progress Note ---
Assessment and Plan 65-year-old female, history of nonepileptic spells, PTSD, closed head injury, hypertension, diabetes, CAD, presents to the ED following cardiac arrest. EMS states Patient collapsed and became unresponsive. Patient was pulseless and apneic. Rhythm was asystole. Patient was intubated by EMS. She was given epi x2. ACLS times approximately 10 minutes followed by return of pulses. Accu- Chek in the 200s. With initial rhythm check here in ED, patient was pulseless, so ACLS restarted. Patient has return of pulse and noted to be in atrial fib, initiated on iv keppra and heparin drip. Assessment and plan -- s/p cardiac arrest Pt on NSR on tele, cardiology consulted, ordered 2d echo -- Acute hypoxemic respiratory failure Patient intubated and on ventilatory support. Critical care team consulted. Wean vent as tolerated, daily spontaneous breathing trial, sedation holiday, supportive care, arterial blood gas per protocol. --SIRS, likely from cardiac arrest and seizure s/p abx, all Cx so far neg, monitor off abx --COVID PUI, r/o with negative test --Possible Anoxic brain injury Supportive care, neuro check, repeat CT scan brain when medically stable. Consulted Neurology -- Atrial fibrillation with RVR, paroxysmal Cardiology team consulted, continue therapeutic anticoagulation as per car diology team with heparin drip, supportive care., Rate control. -- Metabolic acidosis IV fluid resuscitation therapy, follow BMP --Hypertension, initiated on antihypertensive, iv hydralazine as needed --Tonic clonic Seizure Neuro check, antiepileptic therapy with Keppra, neuro consult, EEG ordered -- DVT prophylaxis SCD to bilateral lower extremities while in bed, continue therapeutic ant icoagulation -- patient is full code, patient son Antwon Higginbotham acknowledges understanding and agreement with care plan, The high probability of a clinically significant, sudden or life threatening deterioration of the [multiple] system(s) required my full and direct attention, intervention and personal management. The aggregate critical care time was [30] minutes. This time is in addition to time spent performing reported procedures but includes the following: [x] Data Review and interpretation [x] Patient assessment and monitoring of vital signs [x] Documentation [x] Medication orders and management Daily clinical course: 05/26/21: Updated family at the bedside, Covid test is negative. Will order EEG and neuro consult. Remains intubated, follow clinically. Sedated on Midazolam and Propofol, just received one dose of Lorazepam for witnessed seizure by RN. NSR now, on heparin drip 05/27/21; remains intubated. pending EEG and neuro eval. wean off vent as tolerated. Continue heparin drip per cardiology, replete potassium yesterday, follow BMP. BP noted to be elevated, next started on antihypertensives. 05/28/21; BP noted to be elevated, initiated on antihypertensive, remains intubated. Pending neurology evaluation and EEG. Continue supportive care, follow BMP. 05/29/21: Ordered for MRI brain, continue Keppra, pending EEG. Appreciate neuro recommendation. follow BMP, tolerating TF Subjective Date of service: 05/29/21 Interval history: Patient seen and examined. Medical records and medication list reviewed. Pt intubated and sedated Discussed plan of care at bedside with patient.s RN Pending EEG, ordered for MRI brain Objective - Exam Narrative Exam: GENERAL: well-developed elderly -[place]ese female lying on bed intubated and sedated HEENT: Normocephalic. Atraumatic. No conjunctival congestion or icterus. Patient has moist mucous membranes. NECK: Supple. Trachea midline. CHEST/LUNGS: Clear to auscultated bilaterally, breathing nonlabored. No wheezes crackles or rhonchi. HEART/CARDIOVASCULAR: Regular in rate and rhythm. S1 and S2 positive. ABDOMEN: Abdomen is soft, nontender. Patient has normal bowel sounds. SKIN: There is no rash. Warm and dry. NEURO: Sedated MUSCULOSKELETAL: No joint effusion or tenderness. EXTRIMITY: No edema, no cyanosis or clubbing. PSYCH: Sedated - Constitutional Vitals: Vital Signs - 12hr 05/29/21 05/29/21 05/29/21 06:00 06:15 06:30 Temperature Pulse Rate 72 72 73 Respiratory 20 20 20 Rate Blood Pressure 171/82 161/79 166/81 O2 Sat by Pulse 100 100 100 Oximetry 05/29/21 05/29/21 05/29/21 06:45 07:00 07:15 Temperature Pulse Rate 71 72 70 Respiratory 20 20 20 Rate Blood Pressure 159/75 160/79 159/77 O2 Sat by Pulse 100 100 100 Oximetry 05/29/21 05/29/21 05/29/21 07:30 07:45 08:00 Temperature 97.7 F Pulse Rate 71 70 73 Respiratory 20 20 20 Rate Blood Pressure 159/72 157/73 161/79 O2 Sat by Pulse 100 100 100 Oximetry 05/29/21 05/29/21 05/29/21 08:15 08:28 08:30 Temperature Pulse Rate 70 69 70 Respiratory 20 20 Rate Blood Pressure 160/76 165/77 165/77 O2 Sat by Pulse 100 100 100 Oximetry 05/29/21 05/29/21 05/29/21 08:45 09:00 09:15 Temperature Pulse Rate 71 73 73 Respiratory 20 20 20 Rate Blood Pressure 155/70 160/75 163/75 O2 Sat by Pulse 100 100 100 Oximetry 05/29/21 05/29/21 05/29/21 09:30 09:45 10:00 Temperature Pulse Rate 73 72 73 Respiratory 20 20 20 Rate Blood Pressure 163/78 158/75 160/75 O2 Sat by Pulse 100 100 100 Oximetry 05/29/21 05/29/21 05/29/21 10:02 10:03 10:15 Temperature Pulse Rate 73 73 73 Respiratory 20 Rate Blood Pressure 160/75 160/75 159/76 O2 Sat by Pulse 100 Oximetry 05/29/21 05/29/21 05/29/21 10:30 10:45 11:00 Temperature Pulse Rate 75 75 73 Respiratory 20 20 20 Rate Blood Pressure 161/72 160/72 157/73 O2 Sat by Pulse 100 100 97 Oximetry 05/29/21 05/29/21 05/29/21 11:15 11:30 11:45 Temperature Pulse Rate 73 73 71 Respiratory 20 20 20 Rate Blood Pressure 159/78 160/81 157/73 O2 Sat by Pulse 97 96 99 Oximetry 05/29/21 05/29/21 05/29/21 12:00 12:15 12:26 Temperature 97.7 F Pulse Rate 71 71 72 Respiratory 20 20 Rate Blood Pressure 158/75 160/72 160/72 O2 Sat by Pulse 97 97 99 Oximetry 05/29/21 05/29/21 05/29/21 12:30 12:45 13:00 Temperature Pulse Rate 73 73 75 Respiratory 20 20 20 Rate Blood Pressure 158/75 158/79 163/78 O2 Sat by Pulse 97 97 97 Oximetry 05/29/21 05/29/21 05/29/21 13:15 13:30 13:45 Temperature Pulse Rate 74 75 75 Respiratory 20 20 20 Rate Blood Pressure 158/79 170/76 160/79 O2 Sat by Pulse 99 97 96 Oximetry 05/29/21 05/29/21 05/29/21 14:00 14:15 14:30 Temperature Pulse Rate 75 Respiratory 20 20 19 Rate Blood Pressure 163/74 159/76 161/76 O2 Sat by Pulse 96 97 96 Oximetry 05/29/21 05/29/21 05/29/21 14:45 15:00 15:15 Temperature Pulse Rate 113 H 64 Respiratory 21 20 20 Rate Blood Pressure 165/74 165/78 163/79 O2 Sat by Pulse 96 96 96 Oximetry 05/29/21 05/29/21 15:30 15:45 Temperature Pulse Rate 77 76 Respiratory 20 20 Rate Blood Pressure 166/80 170/76 O2 Sat by Pulse 96 96 Oximetry - Labs CBC & Chem 7: 06/01/21 04:58 06/01/21 04:58 Labs: Abnormal lab results 05/28/21 05/29/21 05/29/21 Range/Units 23:02 04:30 05:02 Hgb 9.3 L (10.1-14.3) gm/dl Hct 26.7 L (30.3-42.9) % ABG pH (7.350-7.450) pH Units ABG pO2 (80.0-90.0) mm Hg ABG Hemoglobin (12.0-16.0) gm/dl POC Glucose 212 H 197 H (70-105) mg/dL 05/29/21 05/29/21 Range/Units 05:28 12:55 Hgb (10.1-14.3) gm/dl Hct (30.3-42.9) % ABG pH 7.516 H (7.350-7.450) pH Units ABG pO2 96.2 H (80.0-90.0) mm Hg ABG Hemoglobin 7.5 L (12.0-16.0) gm/dl POC Glucose 251 H (70-105) mg/dL HEART Score - HEART Score Troponin: Troponin T 0.226 ng/mL (0.00-0.029) H* D 05/25/21 15:19
[2021-05-29] MEDS ORDERED: levETIRAcetam 500 MG/5 ML ORAL LIQD FEEDTUBE SCH (22:00)
[2021-05-29] MEDS: levETIRAcetam 500 MG/5 ML ORAL LIQD FEEDTUBE SCH (22:07)
[2021-05-30] MEDS: HEPARIN/ 0.45% NACL DRIP 25,000 UNIT/500 ML BAG IV SCH (01:12)
[2021-05-30] MEDS: INSULIN LISPRO 100 UNIT/ML SUB-Q SCH ×3 (05:19→17:36)
[2021-05-30] MEDS ORDERED: hydrALAZINE 20 MG/1 ML INJ IV ONE (06:00)
[2021-05-30 07:05] LABS: Blood Urea Nitrogen 17 mg/dL (7-17); Calcium 9.3 mg/dL (8.4-10.2); Hemolysis Index 51
[2021-05-30 07:09] LABS: BUN/Creatinine Ratio 43
[2021-05-30] MEDS: levETIRAcetam 500 MG/5 ML ORAL LIQD FEEDTUBE SCH ×2 (10:08→21:16)
[2021-05-30] MEDS: LOSARTAN 50 MG TAB PO SCH (10:09)
[2021-05-30] MEDS: amLODIPine 10 MG TAB PO SCH (10:09)
[2021-05-30] MEDS: METOPROLOL TARTRATE 100 MG TAB FEEDTUBE SCH ×2 (10:12→21:16)
[2021-05-30] MEDS: SENNOSIDES/DOCUSATE SODIUM 8.6/50 MG TAB FEEDTUBE SCH ×2 (10:12→21:16)
[2021-05-30] MEDS: FAMOTIDINE 20 MG TAB FEEDTUBE SCH ×2 (10:13→21:16)
[2021-05-30] MEDS: INSULIN GLARGINE 100 UNITS/ML SUB-Q SCH (10:13)
--- NOTE | 2021-05-30 11:36 | Progress Note ---
Assessment and Plan - Patient Problems (1) Respiratory failure Current Visit: Yes Status: Acute Plan to address problem: Admitted with syncope and cardiopulmonary arrest, suspect that syncope was initiated by a prolonged seizure episode. (2) Atrial fibrillation Current Visit: Yes Status: Acute Plan to address problem: Transient atrial fibrillation occurred during resuscitative measures for the patient's syncope and asystolic cardiopulmonary arrest. Subjective Date of service: 05/30/21 Interval history: Patient is unresponsive, on the vent. There is normal sinus rhythm at 85. No new cardiac complaints. Objective Vital Signs Temp Pulse Pulse Pulse Resp BP Pulse Ox 05/30/21 11:30 97.5 F L 05/30/21 10:12 89 186/84 05/30/21 10:09 88 186/84 05/30/21 10:00 89 20 186/84 94 05/30/21 09:45 88 20 183/82 94 05/30/21 09:30 89 19 184/80 94 05/30/21 09:15 89 19 193/81 94 05/30/21 09:10 90 187/81 97 05/30/21 09:00 89 19 180/79 95 05/30/21 08:45 89 20 186/83 95 05/30/21 08:30 89 20 185/83 95 05/30/21 08:15 88 19 186/84 95 05/30/21 08:00 87 88 20 184/80 96 05/30/21 07:45 87 20 183/84 94 05/30/21 07:30 85 20 181/84 94 05/30/21 07:15 84 20 179/81 94 05/30/21 07:09 97.9 F 05/30/21 07:00 83 19 181/84 94 05/30/21 06:45 85 20 176/81 94 05/30/21 06:30 82 20 179/78 94 05/30/21 06:15 83 20 181/78 94 05/30/21 06:00 82 20 181/77 94 05/30/21 05:45 80 20 182/81 95 05/30/21 05:30 77 20 175/78 95 05/30/21 05:18 72 187/88 05/30/21 05:15 72 19 174/75 96 05/30/21 05:00 72 19 187/88 96 05/30/21 04:50 72 16 96 05/30/21 04:45 72 19 188/88 97 05/30/21 04:30 72 19 187/85 97 05/30/21 04:15 72 19 186/83 97 05/30/21 04:00 71 18 185/87 97 05/30/21 03:46 72 179/84 99 05/30/21 03:45 71 19 187/85 97 05/30/21 03:30 71 19 179/84 97 05/30/21 03:15 71 19 180/84 97 05/30/21 03:00 97.7 F 70 20 180/84 96 05/30/21 02:45 74 20 188/91 96 05/30/21 02:30 73 20 189/87 98 05/30/21 02:15 73 20 179/82 98 05/30/21 02:00 73 20 182/89 98 05/30/21 01:45 73 20 180/86 98 05/30/21 01:30 72 20 187/84 98 05/30/21 01:15 73 20 179/83 98 05/30/21 01:01 79 18 147/90 99 05/30/21 00:45 72 19 127/82 98 05/30/21 00:31 71 20 142/82 96 05/30/21 00:15 72 19 139/79 98 05/30/21 00:01 71 21 139/79 96 05/30/21 00:00 77 72 16 96 05/29/21 23:55 98.2 F 05/29/21 23:45 70 20 135/72 97 21 23:40 72 21 23:31 71 20 135/72 95 21 23:17 72 184/78 99 21 23:15 72 20 167/78 98 20/21 23:01 72 20 167/78 95 20/21 22:45 83 20 167/85 94 20/21 22:31 76 20 167/85 96 20/21 22:15 74 20 194/81 99 20/21 22:08 74 194/81 20/21 22:01 75 20 194/81 97 20/21 21:45 74 72 20 166/84 100 2021 21:31 73 20 166/84 98 09/20/21 21:15 71 20 175/81 99 09/20/21 21:01 73 20 175/81 97 /20/21 20:45 73 20 174/81 97 /20/21 20:43 74 175/80 09/20/21 20:31 76 20 175/80 96 /20/21 20:24 77 179/79 99 09/20/21 20:16 78 20 186/81 96 20/21 20:15 77 20 179/79 99 /20/21 20:01 75 20 179/79 97 09/20/21 20:00 98.7 F 20/21 19:45 75 20 175/83 98 /20/21 19:40 77 75 16 96 /20/21 19:31 77 20 182/80 97 20/21 19:15 76 20 174/83 97 /20/21 19:00 76 20 177/85 97 /20/21 18:45 77 20 178/83 99 20/21 18:30 77 20 178/83 97 20/21 18:15 81 20 178/83 99 /20/21 18:01 79 20 178/83 97 /20/21 18:00 78 178/83 99 20/21 17:45 81 21 173/93 97 /20/21 17:31 80 20 185/85 97 20/21 17:15 78 20 176/81 97 /20/21 17:00 78 20 176/81 97 /20/21 16:45 78 20 180/83 97 /20/21 16:31 79 20 182/84 96 20/21 16:15 80 20 173/81 96 /20/21 16:00 98.2 F 82 73 20 183/90 96 /20/21 15:45 76 20 170/76 96 /20/21 15:30 77 20 166/80 96 /20/21 15:15 20 163/79 96 /20/21 15:00 64 20 165/78 96 /20/21 14:45 113 H 21 165/74 96 /20/21 14:30 19 161/76 96 /20/21 14:15 20 159/76 97 /20/21 14:00 75 20 163/74 96 09/20/21 13:45 75 20 160/79 96 05/29/21 13:30 75 20 170/76 97 05/29/21 13:15 74 20 158/79 99 05/29/21 13:00 75 20 163/78 97 05/29/21 12:45 73 20 158/79 97 05/29/21 12:30 73 20 158/75 97 05/29/21 12:26 72 160/72 99 05/29/21 12:15 71 20 160/72 97 05/29/21 12:00 97.7 F 71 70 14 158/75 96 05/29/21 11:45 71 20 157/73 99 - Physical Examination General: Other (Unresponsive, on the vent) HEENT: Positive: Other (Pupils for) Neck: Positive: neck supple Cardiac: Positive: Reg Rate and Rhythm Lungs: Positive: Decreased Breath Sounds Neuro: Positive: Weakness (Unresponsive, on the vent) Abdomen: Positive: Soft Skin: Positive: Clear Extremities: Absent: edema - Labs and Meds Comprehensive Metabolic Panel 05/30/21 Range/Units 06:23 Sodium 126 L D (137-145) mmol/L Potassium 4.2 (3.6-5.0) mmol/L Chloride 91.9 L (98-107) mmol/L Carbon Dioxide 20 L D (22-30) mmol/L BUN 17 (7-17) mg/dL Creatinine 0.4 L (0.6-1.2) mg/dL Glucose 274 H (65-100) mg/dL Calcium 9.3 (8.4-10.2) mg/dL - Allied health notes Allied health notes reviewed: RT
[2021-05-30 11:47] LABS: Hematocrit 34.2 % (30.3-42.9); Hemoglobin 11.1 gm/dl (10.1-14.3); Mean Corpuscular HGB Conc 33 % (30-34); Mean Corpuscular Volume 102 fl (79-97); Platelet Count 272 K/mm3 (140-440); Red Blood Count 3.36 M/mm3 (3.65-5.03); Red Cell Distribution Width 15.5 % (13.2-15.2)
--- NOTE | 2021-05-30 11:54 | Progress Note ---
Assessment and Plan Acute hypoxemic respiratory failure on MVS Cardiopulmonary arrest wtih ROSC Seizure disorder Sepsis Toxic metabolic encephalopathy, possible anoxia Atrial fibrillation with RVR Metabolic acidosis Bilateral lower lobe infiltrates - reduced set rate to 16/min - follow EEG & MRI - continue care as below otherwise; - daily SAT and SBT assessment as tolerated - continue to wean supplemental oxygen for target O2 sat's > 90% acutely - VAP bundle addressed - continue lung protective strategies - continue bronchodilators with pulmonary hygiene per RT - wean per pulmonary driven protocols otherwise - continue accuchecks with glycemic control per SSI (While critically ill target blood glucose of 140-180 mg/dL; avoid hypoglycemia) - sedation prn for target RASS 0 to -1 - avoid nephrotoxins, renally dose all medications - continue to avoid benzodiazepine's, reduce the possibility of delirium - AB's per ID rec's - prn analgesia per CPOT score - Maintenance of sleep-wake cycle, avoid delirium - continue enteral nutritional support at goal rate as tolerated - G.I. & VTE prophylaxis - PT/OT/ROM exercises - continue mobility protocols for pressure ulcer prophylaxis - Monitor hemodynamics closely - continue other care per attending / other consultants - discharge planning ongoing concurrently COVID SPECIFIC INTERVENTIONS - COVID-19 PCR negative .... Re-evaluate in am & prn CONDITION: CRITICAL PROGNOSIS: GUARDED CODE STATUS: FULL CODE The high probability of a clinically significant, sudden or life-threatening d eterioration of the [respiratory, cardiovascular & neurologic] system(s) required my full and direct attention, intervention and personal management. The aggregate critical care time was [33] minutes without overlap. Time includes spent on; [x] Data Review and interpretation [x] Patient assessment and monitoring of vital signs [x] Documentation [x] Medication orders and management Subjective Date of service: 05/30/21 Principal diagnosis: Ac hypoxemic resp failure; Cardiac arrest; Seizures; Sepsis; AMS; A-Fib RVR Interval history: Patient is seen today for: Acute hypoxemic respiratory failure; Cardiac arrest wtih ROSC; Seizure disorder; Sepsis; AMS; A-Fib with RVR Seen and examined at bedside; 24hour events reviewed; nursing and respiratory care staff consulted; no adverse overnight events reported to me; resting in bed; remains on MVS; AMS is persistent; for MRI today; await EEG report; no high grade fevers or gross seizures Objective Vital Signs - 12hr 05/29/21 05/30/21 05/30/21 23:55 00:00 00:01 Temperature 98.2 F Pulse Rate 77 71 Pulse Rate [ 72 From Monitor] Respiratory 16 21 Rate Blood Pressure 139/79 O2 Sat by Pulse 96 96 Oximetry 05/30/21 05/30/21 05/30/21 00:15 00:31 00:45 Temperature Pulse Rate 72 71 72 Pulse Rate [ From Monitor] Respiratory 19 20 19 Rate Blood Pressure 139/79 142/82 127/82 O2 Sat by Pulse 98 96 98 Oximetry 05/30/21 05/30/21 05/30/21 01:01 01:15 01:30 Temperature Pulse Rate 79 73 72 Pulse Rate [ From Monitor] Respiratory 18 20 20 Rate Blood Pressure 147/90 179/83 187/84 O2 Sat by Pulse 99 98 98 Oximetry 05/30/21 05/30/21 05/30/21 01:45 02:00 02:15 Temperature Pulse Rate 73 73 73 Pulse Rate [ From Monitor] Respiratory 20 20 20 Rate Blood Pressure 180/86 182/89 179/82 O2 Sat by Pulse 98 98 98 Oximetry 05/30/21 05/30/21 05/30/21 02:30 02:45 03:00 Temperature 97.7 F Pulse Rate 73 74 70 Pulse Rate [ From Monitor] Respiratory 20 20 20 Rate Blood Pressure 189/87 188/91 180/84 O2 Sat by Pulse 98 96 96 Oximetry 05/30/21 05/30/21 05/30/21 03:15 03:30 03:45 Temperature Pulse Rate 71 71 71 Pulse Rate [ From Monitor] Respiratory 19 19 19 Rate Blood Pressure 180/84 179/84 187/85 O2 Sat by Pulse 97 97 97 Oximetry 05/30/21 05/30/21 05/30/21 03:46 04:00 04:15 Temperature Pulse Rate 72 71 72 Pulse Rate [ From Monitor] Respiratory 18 19 Rate Blood Pressure 179/84 185/87 186/83 O2 Sat by Pulse 99 97 97 Oximetry 05/30/21 05/30/21 05/30/21 04:30 04:45 04:50 Temperature Pulse Rate 72 72 72 Pulse Rate [ From Monitor] Respiratory 19 19 16 Rate Blood Pressure 187/85 188/88 O2 Sat by Pulse 97 97 96 Oximetry 05/30/21 05/30/21 05/30/21 05:00 05:15 05:18 Temperature Pulse Rate 72 72 72 Pulse Rate [ From Monitor] Respiratory 19 19 Rate Blood Pressure 187/88 174/75 187/88 O2 Sat by Pulse 96 96 Oximetry 05/30/21 05/30/21 05/30/21 05:30 05:45 06:00 Temperature Pulse Rate 77 80 82 Pulse Rate [ From Monitor] Respiratory 20 20 20 Rate Blood Pressure 175/78 182/81 181/77 O2 Sat by Pulse 95 95 94 Oximetry 05/30/21 05/30/21 05/30/21 06:15 06:30 06:45 Temperature Pulse Rate 83 82 85 Pulse Rate [ From Monitor] Respiratory 20 20 20 Rate Blood Pressure 181/78 179/78 176/81 O2 Sat by Pulse 94 94 94 Oximetry 05/30/21 05/30/21 05/30/21 07:00 07:09 07:15 Temperature 97.9 F Pulse Rate 83 84 Pulse Rate [ From Monitor] Respiratory 19 20 Rate Blood Pressure 181/84 179/81 O2 Sat by Pulse 94 94 Oximetry 05/30/21 05/30/21 05/30/21 07:30 07:45 08:00 Temperature Pulse Rate 85 87 87 Pulse Rate [ 88 From Monitor] Respiratory 20 20 20 Rate Blood Pressure 181/84 183/84 184/80 O2 Sat by Pulse 94 94 96 Oximetry 05/30/21 05/30/21 05/30/21 08:15 08:30 08:45 Temperature Pulse Rate 88 89 89 Pulse Rate [ From Monitor] Respiratory 19 20 20 Rate Blood Pressure 186/84 185/83 186/83 O2 Sat by Pulse 95 95 95 Oximetry 05/30/21 05/30/21 05/30/21 09:00 09:10 09:15 Temperature Pulse Rate 89 90 89 Pulse Rate [ From Monitor] Respiratory 19 19 Rate Blood Pressure 180/79 187/81 193/81 O2 Sat by Pulse 95 97 94 Oximetry 05/30/21 05/30/21 05/30/21 09:30 09:45 10:00 Temperature Pulse Rate 89 88 89 Pulse Rate [ From Monitor] Respiratory 19 20 20 Rate Blood Pressure 184/80 183/82 186/84 O2 Sat by Pulse 94 94 94 Oximetry 05/30/21 05/30/21 05/30/21 10:09 10:12 11:30 Temperature 97.5 F L Pulse Rate 88 89 Pulse Rate [ From Monitor] Respiratory Rate Blood Pressure 186/84 186/84 O2 Sat by Pulse Oximetry Constitutional: no acute distress, other (elderly female with m,ildly increased respiratory effort at rest on MVS) Eyes: non-icteric ENT: oropharynx moist, other (ETT at 23cm [place]) Neck: supple, no lymphadenopathy Effort: mildly labored Ascultation: Bilateral: diminished breath sounds, rhonchi Percussion: Bilateral: not dull Cardiovascular: irregular rhythm, other (S1,S2) Gastrointestinal: normoactive bowel sounds, soft, non-tender, non-distended Integumentary: normal Extremities: no cyanosis, pink and warm, pulses normal, other (Right femoral CVL) Neurologic: pupils equal and round, other (encephalopathic; sedated) Psychiatric: other (unable to assess) CBC and BMP: 05/30/21 11:19 05/30/21 11:19 ABG, PT/INR, D-dimer: ABG ABG pH 7.532 (7.320-7.450) H 05/30/21 04:10 POC ABG pCO2 30.0 mmHg (32.0-48.0) L 05/30/21 04:10 ABG pCO2 30.3 mm Hg 05/29/21 05:28 POC ABG pO2 78.5 mmHg (83-108) L 05/30/21 04:10 ABG pO2 96.2 mm Hg (80.0-90.0) H 05/29/21 05:28 POC ABG HCO3 24.6 05/30/21 04:10 ABG O2 Saturation 96.2 (0-100) 05/30/21 04:10 PT/INR, D-dimer PT 15.0 Sec. (12.2-14.9) H 05/25/21 09:21 INR 1.13 (0.87-1.13) 05/25/21 09:21 D-Dimer > 88149 ng/mlDDU (0-234) H 05/25/21 09:21 Abnormal lab findings: Abnormal Labs 05/25/21 05/25/21 05/25/21 09:07 09:21 09:21 WBC 17.1 H RBC Hgb Hct MCV 106 H MCH 33 H RDW 15.6 H [place] # (Auto) Seg Neutrophils % Seg Neutrophils # Seg Neutrophils # Man 10.1 H Lymphocytes # (Manual) 5.6 H PT 15.0 H APTT 44.3 H D-Dimer > 64654 H Heparin Anti-Xa Level ABG pH 7.116 L POC ABG pCO2 POC ABG pO2 ABG pO2 ABG Hemoglobin ABG Oxyhemoglobin 93.7 L ABG Sodium ABG Potassium ABG Chloride ABG Glucose 395 H Carboxyhemoglobin Sodium Potassium Chloride Carbon Dioxide BUN Creatinine Glucose POC Glucose Lactic Acid Calcium Ferritin AST ALT Lactate Dehydrogenase Troponin T Total Protein Albumin HDL Cholesterol Arterial Blood Glucose 395 H Arterial Blood Ionized Calcium 4.4 L Urine WBC (Auto) 05/25/21 05/25/21 05/25/21 09:21 09:21 09:21 WBC RBC Hgb Hct MCV MCH RDW [place] # (Auto) Seg Neutrophils % Seg Neutrophils # Seg Neutrophils # Man Lymphocytes # (Manual) PT APTT D-Dimer Heparin Anti-Xa Level ABG pH POC ABG pCO2 POC ABG pO2 ABG pO2 ABG Hemoglobin ABG Oxyhemoglobin ABG Sodium ABG Potassium ABG Chloride ABG Glucose Carboxyhemoglobin Sodium Potassium Chloride Carbon Dioxide 10 L BUN Creatinine Glucose 423 H 424 H POC Glucose Lactic Acid Calcium 8.2 L Ferritin 321.6 H AST 162 H ALT 119 H Lactate Dehydrogenase 445 H Troponin T Total Protein 5.6 L Albumin 3.2 L HDL Cholesterol Arterial Blood Glucose Arterial Blood Ionized Calcium Urine WBC (Auto) 05/25/21 05/25/21 05/25/21 09:35 10:42 11:12 WBC RBC Hgb Hct MCV MCH RDW [place] # (Auto) Seg Neutrophils % Seg Neutrophils # Seg Neutrophils # Man Lymphocytes # (Manual) PT APTT D-Dimer Heparin Anti-Xa Level ABG pH POC ABG pCO2 POC ABG pO2 ABG pO2 ABG Hemoglobin ABG Oxyhemoglobin ABG Sodium ABG Potassium ABG Chloride ABG Glucose Carboxyhemoglobin Sodium Potassium Chloride Carbon Dioxide BUN Creatinine Glucose POC Glucose Lactic Acid 16.70 H* 7.70 H* Calcium Ferritin AST ALT Lactate Dehydrogenase Troponin T Total Protein Albumin HDL Cholesterol Arterial Blood Glucose Arterial Blood Ionized Calcium Urine WBC (Auto) 11.0 H 05/25/21 05/25/21 05/25/21 14:07 15:19 19:04 WBC RBC Hgb Hct MCV MCH RDW [place] # (Auto) Seg Neutrophils % Seg Neutrophils # Seg Neutrophils # Man Lymphocytes # (Manual) PT APTT D-Dimer Heparin Anti-Xa Level ABG pH POC ABG pCO2 POC ABG pO2 172.2 H ABG pO2 ABG Hemoglobin ABG Oxyhemoglobin 98.7 H ABG Sodium 135.7 L ABG Potassium ABG Chloride ABG Glucose 255 H Carboxyhemoglobin 0.3 L Sodium Potassium Chloride Carbon Dioxide BUN Creatinine Glucose POC Glucose Lactic Acid 3.90 H* Calcium Ferritin AST ALT Lactate Dehydrogenase Troponin T 0.226 H* D Total Protein Albumin HDL Cholesterol 64 H Arterial Blood Glucose 255 H Arterial Blood Ionized Calcium 3.8 L Urine WBC (Auto) 05/25/21 05/25/21 05/26/21 21:16 21:16 04:00 WBC RBC Hgb Hct MCV MCH RDW [place] # (Auto) Seg Neutrophils % Seg Neutrophils # Seg Neutrophils # Man Lymphocytes # (Manual) PT APTT D-Dimer Heparin Anti-Xa Level 1.19 H ABG pH 7.547 H POC ABG pCO2 POC ABG pO2 ABG pO2 ABG Hemoglobin 11.9 L ABG Oxyhemoglobin ABG Sodium 133.2 L ABG Potassium 3.1 L ABG Chloride ABG Glucose 243 H Carboxyhemoglobin 0.3 L Sodium Potassium Chloride Carbon Dioxide BUN Creatinine Glucose POC Glucose Lactic Acid 2.50 H* Calcium Ferritin AST ALT Lactate Dehydrogenase Troponin T Total Protein Albumin HDL Cholesterol Arterial Blood Glucose 243 H Arterial Blood Ionized Calcium Urine WBC (Auto) 05/26/21 05/26/21 05/26/21 05:49 05:49 17:33 WBC RBC Hgb Hct MCV MCH RDW [place] # (Auto) Seg Neutrophils % Seg Neutrophils # Seg Neutrophils # Man Lymphocytes # (Manual) PT APTT D-Dimer Heparin Anti-Xa Level ABG pH POC ABG pCO2 POC ABG pO2 ABG pO2 ABG Hemoglobin ABG Oxyhemoglobin ABG Sodium ABG Potassium ABG Chloride ABG Glucose Carboxyhemoglobin Sodium Potassium Chloride Carbon Dioxide BUN Creatinine Glucose 226 H POC Glucose 156 H Lactic Acid 2.30 H* Calcium 7.2 L Ferritin AST 111 H ALT 97 H Lactate Dehydrogenase Troponin T Total Protein 5.4 L Albumin 3.3 L HDL Cholesterol Arterial Blood Glucose Arterial Blood Ionized Calcium Urine WBC (Auto) 05/27/21 05/27/21 05/27/21 02:11 02:11 02:11 WBC 14.3 H RBC 3.27 L Hgb Hct MCV 99 H MCH 33 H RDW 15.3 H [place] # (Auto) 1.0 H Seg Neutrophils % Seg Neutrophils # 10.0 H Seg Neutrophils # Man Lymphocytes # (Manual) PT APTT D-Dimer Heparin Anti-Xa Level 0.80 H ABG pH POC ABG pCO2 POC ABG pO2 ABG pO2 ABG Hemoglobin ABG Oxyhemoglobin ABG Sodium ABG Potassium ABG Chloride ABG Glucose Carboxyhemoglobin Sodium Potassium 2.9 L* D Chloride Carbon Dioxide 31 H BUN 6 L Creatinine Glucose 215 H POC Glucose Lactic Acid Calcium 8.1 L Ferritin AST ALT Lactate Dehydrogenase Troponin T Total Protein Albumin HDL Cholesterol Arterial Blood Glucose Arterial Blood Ionized Calcium Urine WBC (Auto) 05/27/21 05/27/21 05/27/21 11:24 12:49 18:06 WBC RBC Hgb Hct MCV MCH RDW [place] # (Auto) Seg Neutrophils % Seg Neutrophils # Seg Neutrophils # Man Lymphocytes # (Manual) PT APTT D-Dimer Heparin Anti-Xa Level ABG pH POC ABG pCO2 POC ABG pO2 ABG pO2 ABG Hemoglobin ABG Oxyhemoglobin ABG Sodium ABG Potassium ABG Chloride ABG Glucose Carboxyhemoglobin Sodium Potassium Chloride Carbon Dioxide BUN Creatinine Glucose POC Glucose 151 H 165 H 137 H Lactic Acid Calcium Ferritin AST ALT Lactate Dehydrogenase Troponin T Total Protein Albumin HDL Cholesterol Arterial Blood Glucose Arterial Blood Ionized Calcium Urine WBC (Auto) 05/28/21 05/28/21 05/28/21 04:00 04:00 06:02 WBC 13.5 H RBC 3.05 L Hgb Hct MCV 100 H MCH 34 H RDW [place] # (Auto) 0.9 H Seg Neutrophils % 78.2 H Seg Neutrophils # 10.6 H Seg Neutrophils # Man Lymphocytes # (Manual) PT APTT D-Dimer Heparin Anti-Xa Level ABG pH 7.507 H POC ABG pCO2 POC ABG pO2 ABG pO2 ABG Hemoglobin 10.6 L ABG Oxyhemoglobin ABG Sodium 129.4 L ABG Potassium ABG Chloride ABG Glucose 243 H Carboxyhemoglobin 0.2 L Sodium 136 L D Potassium Chloride Carbon Dioxide BUN Creatinine Glucose 215 H POC Glucose Lactic Acid Calcium Ferritin AST ALT Lactate Dehydrogenase Troponin T Total Protein Albumin HDL Cholesterol Arterial Blood Glucose 243 H Arterial Blood Ionized Calcium 4.1 L Urine WBC (Auto) 05/28/21 05/28/21 05/29/21 11:27 23:02 04:30 WBC RBC Hgb 9.3 L Hct 26.7 L MCV MCH RDW [place] # (Auto) Seg Neutrophils % Seg Neutrophils # Seg Neutrophils # Man Lymphocytes # (Manual) PT APTT D-Dimer Heparin Anti-Xa Level ABG pH POC ABG pCO2 POC ABG pO2 ABG pO2 ABG Hemoglobin ABG Oxyhemoglobin ABG Sodium ABG Potassium ABG Chloride ABG Glucose Carboxyhemoglobin Sodium Potassium Chloride Carbon Dioxide BUN Creatinine Glucose POC Glucose 220 H 212 H Lactic Acid Calcium Ferritin AST ALT Lactate Dehydrogenase Troponin T Total Protein Albumin HDL Cholesterol Arterial Blood Glucose Arterial Blood Ionized Calcium Urine WBC (Auto) 05/29/21 05/29/21 05/29/21 05:02 05:28 12:55 WBC RBC Hgb Hct MCV MCH RDW [place] # (Auto) Seg Neutrophils % Seg Neutrophils # Seg Neutrophils # Man Lymphocytes # (Manual) PT APTT D-Dimer Heparin Anti-Xa Level ABG pH 7.516 H POC ABG pCO2 POC ABG pO2 ABG pO2 96.2 H ABG Hemoglobin 7.5 L ABG Oxyhemoglobin ABG Sodium ABG Potassium ABG Chloride ABG Glucose Carboxyhemoglobin Sodium Potassium Chloride Carbon Dioxide BUN Creatinine Glucose POC Glucose 197 H 251 H Lactic Acid Calcium Ferritin AST ALT Lactate Dehydrogenase Troponin T Total Protein Albumin HDL Cholesterol Arterial Blood Glucose Arterial Blood Ionized Calcium Urine WBC (Auto) 05/29/21 05/29/21 05/30/21 18:23 23:31 04:10 WBC RBC Hgb Hct MCV MCH RDW [place] # (Auto) Seg Neutrophils % Seg Neutrophils # Seg Neutrophils # Man Lymphocytes # (Manual) PT APTT D-Dimer Heparin Anti-Xa Level ABG pH 7.532 H POC ABG pCO2 30.0 L POC ABG pO2 78.5 L ABG pO2 ABG Hemoglobin 11.3 L ABG Oxyhemoglobin ABG Sodium 126.7 L ABG Potassium ABG Chloride 94.0 L ABG Glucose 270 H Carboxyhemoglobin 0.4 L Sodium Potassium Chloride Carbon Dioxide BUN Creatinine Glucose POC Glucose 236 H 252 H Lactic Acid Calcium Ferritin AST ALT Lactate Dehydrogenase Troponin T Total Protein Albumin HDL Cholesterol Arterial Blood Glucose 270 H Arterial Blood Ionized Calcium 4.4 L Urine WBC (Auto) 05/30/21 05/30/21 05/30/21 05:06 06:23 11:15 WBC RBC Hgb Hct MCV MCH RDW [place] # (Auto) Seg Neutrophils % Seg Neutrophils # Seg Neutrophils # Man Lymphocytes # (Manual) PT APTT D-Dimer Heparin Anti-Xa Level ABG pH POC ABG pCO2 POC ABG pO2 ABG pO2 ABG Hemoglobin ABG Oxyhemoglobin ABG Sodium ABG Potassium ABG Chloride ABG Glucose Carboxyhemoglobin Sodium 126 L D Potassium Chloride 91.9 L Carbon Dioxide 20 L D BUN Creatinine 0.4 L Glucose 274 H POC Glucose 242 H 346 H Lactic Acid Calcium Ferritin AST ALT Lactate Dehydrogenase Troponin T Total Protein Albumin HDL Cholesterol Arterial Blood Glucose Arterial Blood Ionized Calcium Urine WBC (Auto) 05/30/21 11:19 WBC 18.9 H RBC 3.36 L Hgb Hct MCV 102 H MCH 33 H RDW 15.5 H [place] # (Auto) Seg Neutrophils % Seg Neutrophils # Seg Neutrophils # Man Lymphocytes # (Manual) PT APTT D-Dimer Heparin Anti-Xa Level ABG pH POC ABG pCO2 POC ABG pO2 ABG pO2 ABG Hemoglobin ABG Oxyhemoglobin ABG Sodium ABG Potassium ABG Chloride ABG Glucose Carboxyhemoglobin Sodium Potassium Chloride Carbon Dioxide BUN Creatinine Glucose POC Glucose Lactic Acid Calcium Ferritin AST ALT Lactate Dehydrogenase Troponin T Total Protein Albumin HDL Cholesterol Arterial Blood Glucose Arterial Blood Ionized Calcium Urine WBC (Auto) Chest x-ray: image reviewed (ETT in good position) Allied health notes reviewed: nursing
[2021-05-30] MEDS: CEFEPIME/NS 2 GM/100 ML 2 GM/100 ML BAG IV SCH (11:55)
--- NOTE | 2021-05-30 13:09 | Progress Note ---
Assessment and Plan Assessment and Plan - Patient Problems # Sepsis -Sepsis protocol: Chest x-ray, CBC, CMP, urinalysis, blood culture, monitor urine output every shift, monitor fluid balance, IV fluid resuscitation therapy, maintain mean arterial pressure greater than or equal to 65, IV pressor support as clinically indicated to maintain mean arterial pressure, serial lactic acid level. # Acute hypoxemic respiratory failure -Patient intubated and on ventilatory support. Critical care team consulted. Wean vent as tolerated, daily spontaneous breathing trial, sedation holiday, supportive care, arterial blood gas. # Toxic metabolic encephalopathy -Supportive care, neuro check, CT scan head, treat sepsis, # Anoxic brain injury Supportive care, neuro check, repeat CT scan brain when medically stable. # Cardiac arrest -Patient treated" with ACLS protocol with return of perfusing cardiac rhythm. # Atrial fibrillation with RVR -Cardiology team consulted, continue therapeutic anticoagulation as per cardiology team, supportive care., Rate control. # Metabolic acidosis -IV fluid resuscitation therapy, bicarbonate drip. # Seizure -Neuro check, antiepileptic therapy with [id number] mg Iv bid -EEG showed no sign of seizure -MRI brain is pending # DVT prophylaxis -SCD to bilateral lower extremities while in bed, continue therapeutic anticoagulation # Advance care planning -Disease education conducted, care plan discussed, diagnoses discussed, poor prognosis discussed, patient is full code, patient son Antwon Higginbotham acknowledges understanding and agreement with care plan, +30 minutes. The high probability of a clinically significant, sudden or life threatening deterioration of the [cardiac, pulmonary, neuro, renal] system(s) required my full and direct attention, intervention and personal management. The aggregate c ritical care time was [30] minutes. This time is in addition to time spent performing reported procedures but includes the following: [x] Data Review and interpretation [x] Patient assessment and monitoring of vital signs [x] Documentation [x] Medication orders and management PLAN 1- MRI brain for today 2- Keppra 1000 mg IV bid maintain for now 3- Better control of BP 4- Stop sedation if possible will follow over all prognosis is quarded to poor Subjective Date of service: 05/30/21 Principal diagnosis: Ac hypoxemic resp failure; Cardiac arrest; Seizures; Sepsis; AMS; A-Fib RVR Interval history: status is unchanged she is with poorly controlled HTN and is with AF on IV heparine recurrent eye twitching not follow command no movement to sternal rub , eyes are wondering around No reported seizure EEG showed no clear epileptic activity Objective - Vital Sign Vital Signs - 12hr 05/30/21 05/30/21 05/30/21 01:15 01:30 01:45 Temperature Pulse Rate 73 72 73 Pulse Rate [ From Monitor] Respiratory 20 20 20 Rate Blood Pressure 179/83 187/84 180/86 O2 Sat by Pulse 98 98 98 Oximetry 05/30/21 05/30/21 05/30/21 02:00 02:15 02:30 Temperature Pulse Rate 73 73 73 Pulse Rate [ From Monitor] Respiratory 20 20 20 Rate Blood Pressure 182/89 179/82 189/87 O2 Sat by Pulse 98 98 98 Oximetry 05/30/21 05/30/21 05/30/21 02:45 03:00 03:15 Temperature 97.7 F Pulse Rate 74 70 71 Pulse Rate [ From Monitor] Respiratory 20 20 19 Rate Blood Pressure 188/91 180/84 180/84 O2 Sat by Pulse 96 96 97 Oximetry 05/30/21 05/30/21 05/30/21 03:30 03:45 03:46 Temperature Pulse Rate 71 71 72 Pulse Rate [ From Monitor] Respiratory 19 19 Rate Blood Pressure 179/84 187/85 179/84 O2 Sat by Pulse 97 97 99 Oximetry 05/30/21 05/30/21 05/30/21 04:00 04:15 04:30 Temperature Pulse Rate 71 72 72 Pulse Rate [ From Monitor] Respiratory 18 19 19 Rate Blood Pressure 185/87 186/83 187/85 O2 Sat by Pulse 97 97 97 Oximetry 05/30/21 05/30/21 05/30/21 04:45 04:50 05:00 Temperature Pulse Rate 72 72 72 Pulse Rate [ From Monitor] Respiratory 19 16 19 Rate Blood Pressure 188/88 187/88 O2 Sat by Pulse 97 96 96 Oximetry 05/30/21 05/30/21 05/30/21 05:15 05:18 05:30 Temperature Pulse Rate 72 72 77 Pulse Rate [ From Monitor] Respiratory 19 20 Rate Blood Pressure 174/75 187/88 175/78 O2 Sat by Pulse 96 95 Oximetry 05/30/21 05/30/21 05/30/21 05:45 06:00 06:15 Temperature Pulse Rate 80 82 83 Pulse Rate [ From Monitor] Respiratory 20 20 20 Rate Blood Pressure 182/81 181/77 181/78 O2 Sat by Pulse 95 94 94 Oximetry 05/30/21 05/30/21 05/30/21 06:30 06:45 07:00 Temperature Pulse Rate 82 85 83 Pulse Rate [ From Monitor] Respiratory 20 20 19 Rate Blood Pressure 179/78 176/81 181/84 O2 Sat by Pulse 94 94 94 Oximetry 05/30/21 05/30/21 05/30/21 07:09 07:15 07:30 Temperature 97.9 F Pulse Rate 84 85 Pulse Rate [ From Monitor] Respiratory 20 20 Rate Blood Pressure 179/81 181/84 O2 Sat by Pulse 94 94 Oximetry 05/30/21 05/30/21 05/30/21 07:45 08:00 08:15 Temperature Pulse Rate 87 87 88 Pulse Rate [ 88 From Monitor] Respiratory 20 20 19 Rate Blood Pressure 183/84 184/80 186/84 O2 Sat by Pulse 94 96 95 Oximetry 05/30/21 05/30/21 05/30/21 08:30 08:45 09:00 Temperature Pulse Rate 89 89 89 Pulse Rate [ From Monitor] Respiratory 20 20 19 Rate Blood Pressure 185/83 186/83 180/79 O2 Sat by Pulse 95 95 95 Oximetry 05/30/21 05/30/21 05/30/21 09:10 09:15 09:30 Temperature Pulse Rate 90 89 89 Pulse Rate [ From Monitor] Respiratory 19 19 Rate Blood Pressure 187/81 193/81 184/80 O2 Sat by Pulse 97 94 94 Oximetry 05/30/21 05/30/21 05/30/21 09:45 10:00 10:09 Temperature Pulse Rate 88 89 88 Pulse Rate [ From Monitor] Respiratory 20 20 Rate Blood Pressure 183/82 186/84 186/84 O2 Sat by Pulse 94 94 Oximetry 05/30/21 05/30/21 05/30/21 10:12 11:30 12:45 Temperature 97.5 F L Pulse Rate 89 76 Pulse Rate [ From Monitor] Respiratory Rate Blood Pressure 186/84 165/82 O2 Sat by Pulse 99 Oximetry - Laboratory Findings CBC and BMP: 05/30/21 11:19 05/30/21 11:19 Abnormal Lab Findings: Abnormal Labs 05/25/21 05/25/21 05/25/21 09:07 09:21 09:21 WBC 17.1 H RBC Hgb Hct MCV 106 H MCH 33 H RDW 15.6 H Ray # (Auto) Seg Neutrophils % Seg Neutrophils # Seg Neutrophils # Man 10.1 H Lymphocytes # (Manual) 5.6 H PT 15.0 H APTT 44.3 H D-Dimer > 24498 H Heparin Anti-Xa Level ABG pH 7.116 L POC ABG pCO2 POC ABG pO2 ABG pO2 ABG Hemoglobin ABG Oxyhemoglobin 93.7 L ABG Sodium ABG Potassium ABG Chloride ABG Glucose 395 H Carboxyhemoglobin Sodium Potassium Chloride Carbon Dioxide BUN Creatinine Glucose POC Glucose Lactic Acid Calcium Ferritin AST ALT Lactate Dehydrogenase Troponin T Total Protein Albumin HDL Cholesterol Arterial Blood Glucose 395 H Arterial Blood Ionized Calcium 4.4 L Urine WBC (Auto) 05/25/21 05/25/21 05/25/21 09:21 09:21 09:21 WBC RBC Hgb Hct MCV MCH RDW Ray # (Auto) Seg Neutrophils % Seg Neutrophils # Seg Neutrophils # Man Lymphocytes # (Manual) PT APTT D-Dimer Heparin Anti-Xa Level ABG pH POC ABG pCO2 POC ABG pO2 ABG pO2 ABG Hemoglobin ABG Oxyhemoglobin ABG Sodium ABG Potassium ABG Chloride ABG Glucose Carboxyhemoglobin Sodium Potassium Chloride Carbon Dioxide 10 L BUN Creatinine Glucose 423 H 424 H POC Glucose Lactic Acid Calcium 8.2 L Ferritin 321.6 H AST 162 H ALT 119 H Lactate Dehydrogenase 445 H Troponin T Total Protein 5.6 L Albumin 3.2 L HDL Cholesterol Arterial Blood Glucose Arterial Blood Ionized Calcium Urine WBC (Auto) 05/25/21 05/25/21 05/25/21 09:35 10:42 11:12 WBC RBC Hgb Hct MCV MCH RDW Ray # (Auto) Seg Neutrophils % Seg Neutrophils # Seg Neutrophils # Man Lymphocytes # (Manual) PT APTT D-Dimer Heparin Anti-Xa Level ABG pH POC ABG pCO2 POC ABG pO2 ABG pO2 ABG Hemoglobin ABG Oxyhemoglobin ABG Sodium ABG Potassium ABG Chloride ABG Glucose Carboxyhemoglobin Sodium Potassium Chloride Carbon Dioxide BUN Creatinine Glucose POC Glucose Lactic Acid 16.70 H* 7.70 H* Calcium Ferritin AST ALT Lactate Dehydrogenase Troponin T Total Protein Albumin HDL Cholesterol Arterial Blood Glucose Arterial Blood Ionized Calcium Urine WBC (Auto) 11.0 H 05/25/21 05/25/21 05/25/21 14:07 15:19 19:04 WBC RBC Hgb Hct MCV MCH RDW Ray # (Auto) Seg Neutrophils % Seg Neutrophils # Seg Neutrophils # Man Lymphocytes # (Manual) PT APTT D-Dimer Heparin Anti-Xa Level ABG pH POC ABG pCO2 POC ABG pO2 172.2 H ABG pO2 ABG Hemoglobin ABG Oxyhemoglobin 98.7 H ABG Sodium 135.7 L ABG Potassium ABG Chloride ABG Glucose 255 H Carboxyhemoglobin 0.3 L Sodium Potassium Chloride Carbon Dioxide BUN Creatinine Glucose POC Glucose Lactic Acid 3.90 H* Calcium Ferritin AST ALT Lactate Dehydrogenase Troponin T 0.226 H* D Total Protein Albumin HDL Cholesterol 64 H Arterial Blood Glucose 255 H Arterial Blood Ionized Calcium 3.8 L Urine WBC (Auto) 05/25/21 05/25/21 05/26/21 21:16 21:16 04:00 WBC RBC Hgb Hct MCV MCH RDW Ray # (Auto) Seg Neutrophils % Seg Neutrophils # Seg Neutrophils # Man Lymphocytes # (Manual) PT APTT D-Dimer Heparin Anti-Xa Level 1.19 H ABG pH 7.547 H POC ABG pCO2 POC ABG pO2 ABG pO2 ABG Hemoglobin 11.9 L ABG Oxyhemoglobin ABG Sodium 133.2 L ABG Potassium 3.1 L ABG Chloride ABG Glucose 243 H Carboxyhemoglobin 0.3 L Sodium Potassium Chloride Carbon Dioxide BUN Creatinine Glucose POC Glucose Lactic Acid 2.50 H* Calcium Ferritin AST ALT Lactate Dehydrogenase Troponin T Total Protein Albumin HDL Cholesterol Arterial Blood Glucose 243 H Arterial Blood Ionized Calcium Urine WBC (Auto) 05/26/21 05/26/21 05/26/21 05:49 05:49 17:33 WBC RBC Hgb Hct MCV MCH RDW Ray # (Auto) Seg Neutrophils % Seg Neutrophils # Seg Neutrophils # Man Lymphocytes # (Manual) PT APTT D-Dimer Heparin Anti-Xa Level ABG pH POC ABG pCO2 POC ABG pO2 ABG pO2 ABG Hemoglobin ABG Oxyhemoglobin ABG Sodium ABG Potassium ABG Chloride ABG Glucose Carboxyhemoglobin Sodium Potassium Chloride Carbon Dioxide BUN Creatinine Glucose 226 H POC Glucose 156 H Lactic Acid 2.30 H* Calcium 7.2 L Ferritin AST 111 H ALT 97 H Lactate Dehydrogenase Troponin T Total Protein 5.4 L Albumin 3.3 L HDL Cholesterol Arterial Blood Glucose Arterial Blood Ionized Calcium Urine WBC (Auto) 05/27/21 05/27/21 05/27/21 02:11 02:11 02:11 WBC 14.3 H RBC 3.27 L Hgb Hct MCV 99 H MCH 33 H RDW 15.3 H Ray # (Auto) 1.0 H Seg Neutrophils % Seg Neutrophils # 10.0 H Seg Neutrophils # Man Lymphocytes # (Manual) PT APTT D-Dimer Heparin Anti-Xa Level 0.80 H ABG pH POC ABG pCO2 POC ABG pO2 ABG pO2 ABG Hemoglobin ABG Oxyhemoglobin ABG Sodium ABG Potassium ABG Chloride ABG Glucose Carboxyhemoglobin Sodium Potassium 2.9 L* D Chloride Carbon Dioxide 31 H BUN 6 L Creatinine Glucose 215 H POC Glucose Lactic Acid Calcium 8.1 L Ferritin AST ALT Lactate Dehydrogenase Troponin T Total Protein Albumin HDL Cholesterol Arterial Blood Glucose Arterial Blood Ionized Calcium Urine WBC (Auto) 05/27/21 05/27/21 05/27/21 11:24 12:49 18:06 WBC RBC Hgb Hct MCV MCH RDW Ray # (Auto) Seg Neutrophils % Seg Neutrophils # Seg Neutrophils # Man Lymphocytes # (Manual) PT APTT D-Dimer Heparin Anti-Xa Level ABG pH POC ABG pCO2 POC ABG pO2 ABG pO2 ABG Hemoglobin ABG Oxyhemoglobin ABG Sodium ABG Potassium ABG Chloride ABG Glucose Carboxyhemoglobin Sodium Potassium Chloride Carbon Dioxide BUN Creatinine Glucose POC Glucose 151 H 165 H 137 H Lactic Acid Calcium Ferritin AST ALT Lactate Dehydrogenase Troponin T Total Protein Albumin HDL Cholesterol Arterial Blood Glucose Arterial Blood Ionized Calcium Urine WBC (Auto) 05/28/21 05/28/21 05/28/21 04:00 04:00 06:02 WBC 13.5 H RBC 3.05 L Hgb Hct MCV 100 H MCH 34 H RDW Ray # (Auto) 0.9 H Seg Neutrophils % 78.2 H Seg Neutrophils # 10.6 H Seg Neutrophils # Man Lymphocytes # (Manual) PT APTT D-Dimer Heparin Anti-Xa Level ABG pH 7.507 H POC ABG pCO2 POC ABG pO2 ABG pO2 ABG Hemoglobin 10.6 L ABG Oxyhemoglobin ABG Sodium 129.4 L ABG Potassium ABG Chloride ABG Glucose 243 H Carboxyhemoglobin 0.2 L Sodium 136 L D Potassium Chloride Carbon Dioxide BUN Creatinine Glucose 215 H POC Glucose Lactic Acid Calcium Ferritin AST ALT Lactate Dehydrogenase Troponin T Total Protein Albumin HDL Cholesterol Arterial Blood Glucose 243 H Arterial Blood Ionized Calcium 4.1 L Urine WBC (Auto) 05/28/21 05/28/21 05/29/21 11:27 23:02 04:30 WBC RBC Hgb 9.3 L Hct 26.7 L MCV MCH RDW Ray # (Auto) Seg Neutrophils % Seg Neutrophils # Seg Neutrophils # Man Lymphocytes # (Manual) PT APTT D-Dimer Heparin Anti-Xa Level ABG pH POC ABG pCO2 POC ABG pO2 ABG pO2 ABG Hemoglobin ABG Oxyhemoglobin ABG Sodium ABG Potassium ABG Chloride ABG Glucose Carboxyhemoglobin Sodium Potassium Chloride Carbon Dioxide BUN Creatinine Glucose POC Glucose 220 H 212 H Lactic Acid Calcium Ferritin AST ALT Lactate Dehydrogenase Troponin T Total Protein Albumin HDL Cholesterol Arterial Blood Glucose Arterial Blood Ionized Calcium Urine WBC (Auto) 05/29/21 05/29/21 05/29/21 05:02 05:28 12:55 WBC RBC Hgb Hct MCV MCH RDW Ray # (Auto) Seg Neutrophils % Seg Neutrophils # Seg Neutrophils # Man Lymphocytes # (Manual) PT APTT D-Dimer Heparin Anti-Xa Level ABG pH 7.516 H POC ABG pCO2 POC ABG pO2 ABG pO2 96.2 H ABG Hemoglobin 7.5 L ABG Oxyhemoglobin ABG Sodium ABG Potassium ABG Chloride ABG Glucose Carboxyhemoglobin Sodium Potassium Chloride Carbon Dioxide BUN Creatinine Glucose POC Glucose 197 H 251 H Lactic Acid Calcium Ferritin AST ALT Lactate Dehydrogenase Troponin T Total Protein Albumin HDL Cholesterol Arterial Blood Glucose Arterial Blood Ionized Calcium Urine WBC (Auto) 05/29/21 05/29/21 05/30/21 18:23 23:31 04:10 WBC RBC Hgb Hct MCV MCH RDW Ray # (Auto) Seg Neutrophils % Seg Neutrophils # Seg Neutrophils # Man Lymphocytes # (Manual) PT APTT D-Dimer Heparin Anti-Xa Level ABG pH 7.532 H POC ABG pCO2 30.0 L POC ABG pO2 78.5 L ABG pO2 ABG Hemoglobin 11.3 L ABG Oxyhemoglobin ABG Sodium 126.7 L ABG Potassium ABG Chloride 94.0 L ABG Glucose 270 H Carboxyhemoglobin 0.4 L Sodium Potassium Chloride Carbon Dioxide BUN Creatinine Glucose POC Glucose 236 H 252 H Lactic Acid Calcium Ferritin AST ALT Lactate Dehydrogenase Troponin T Total Protein Albumin HDL Cholesterol Arterial Blood Glucose 270 H Arterial Blood Ionized Calcium 4.4 L Urine WBC (Auto) 05/30/21 05/30/21 05/30/21 05:06 06:23 11:15 WBC RBC Hgb Hct MCV MCH RDW Ray # (Auto) Seg Neutrophils % Seg Neutrophils # Seg Neutrophils # Man Lymphocytes # (Manual) PT APTT D-Dimer Heparin Anti-Xa Level ABG pH POC ABG pCO2 POC ABG pO2 ABG pO2 ABG Hemoglobin ABG Oxyhemoglobin ABG Sodium ABG Potassium ABG Chloride ABG Glucose Carboxyhemoglobin Sodium 126 L D Potassium Chloride 91.9 L Carbon Dioxide 20 L D BUN Creatinine 0.4 L Glucose 274 H POC Glucose 242 H 346 H Lactic Acid Calcium Ferritin AST ALT Lactate Dehydrogenase Troponin T Total Protein Albumin HDL Cholesterol Arterial Blood Glucose Arterial Blood Ionized Calcium Urine WBC (Auto) 05/30/21 05/30/21 05/30/21 11:19 11:19 11:19 WBC 18.9 H RBC 3.36 L Hgb Hct MCV 102 H MCH 33 H RDW 15.5 H Ray # (Auto) Seg Neutrophils % Seg Neutrophils # Seg Neutrophils # Man Lymphocytes # (Manual) PT APTT D-Dimer Heparin Anti-Xa Level < 0.10 L ABG pH POC ABG pCO2 POC ABG pO2 ABG pO2 ABG Hemoglobin ABG Oxyhemoglobin ABG Sodium ABG Potassium ABG Chloride ABG Glucose Carboxyhemoglobin Sodium 124 L Potassium Chloride Carbon Dioxide BUN Creatinine Glucose POC Glucose Lactic Acid Calcium Ferritin AST ALT Lactate Dehydrogenase Troponin T Total Protein Albumin HDL Cholesterol Arterial Blood Glucose Arterial Blood Ionized Calcium Urine WBC (Auto)
--- NOTE | 2021-05-30 16:31 | Progress Note ---
Assessment and Plan 65-year-old female, history of nonepileptic spells, PTSD, closed head injury, hypertension, diabetes, CAD, presents to the ED following cardiac arrest. EMS states Patient collapsed and became unresponsive. Patient was pulseless and apneic. Rhythm was asystole. Patient was intubated by EMS. She was given epi x2. ACLS times approximately 10 minutes followed by return of pulses. Accu- Chek in the 200s. With initial rhythm check here in ED, patient was pulseless, so ACLS restarted. Patient has return of pulse and noted to be in atrial fib, initiated on iv keppra and heparin drip. Assessment and plan -- s/p cardiac arrest Pt on NSR on tele, cardiology consulted, ordered 2d echo -- Acute hypoxemic respiratory failure Patient intubated and on ventilatory support. Critical care team consulted. Wean vent as tolerated, daily spontaneous breathing trial, sedation holiday, supportive care, arterial blood gas per protocol. --SIRS, likely from cardiac arrest and seizure s/p abx, all Cx so far neg, monitor off abx --COVID PUI, r/o with negative test --Possible Anoxic brain injury Supportive care, neuro check, ordered MRI brain Consulted Neurology -- Atrial fibrillation with RVR, paroxysmal Cardiology team consulted, continue therapeutic anticoagulation as per cardiology team with heparin drip, supportive care., Rate control. -- Metabolic acidosis IV fluid resuscitation therapy, follow BMP --Hypertension, initiated on antihypertensive, iv hydralazine as needed --Tonic clonic Seizure Neuro check, antiepileptic therapy with Keppra, neuro consult, EEG ordered -- DVT prophylaxis SCD to bilateral lower extremities while in bed, continue therapeutic anticoagulation -- patient is full code, patient son Antwon Higginbotham acknowledges understanding and agreement with care plan, The high probability of a clinically significant, sudden or life threatening de terioration of the [multiple] system(s) required my full and direct attention, intervention and personal management. The aggregate critical care time was [30] minutes. This time is in addition to time spent performing reported procedures but includes the following: [x] Data Review and interpretation [x] Patient assessment and monitoring of vital signs [x] Documentation [x] Medication orders and management Daily clinical course: 05/26/21: Updated family at the bedside, Covid test is negative. Will order EEG and neuro consult. Remains intubated, follow clinically. Sedated on Midazolam and Propofol, just received one dose of Lorazepam for witnessed seizure by RN. NSR now, on heparin drip 05/27/21; remains intubated. pending EEG and neuro eval. wean off vent as tolerated. Continue heparin drip per cardiology, replete potassium yesterday, follow BMP. BP noted to be elevated, next started on antihypertensives. 05/28/21; BP noted to be elevated, initiated on antihypertensive, remains intubated. Pending neurology evaluation and EEG. Continue supportive care, follow BMP. 05/29/21: Ordered for MRI brain, continue Keppra, pending EEG. Appreciate neuro recommendation. follow BMP, tolerating TF 05/30/21: Patient remains intubated, pending MRI brain, follow neurology recommendation. EEG showed diffuse slowing. Subjective Date of service: 05/30/21 Principal diagnosis: Ac hypoxemic resp failure; Cardiac arrest; Seizures; Sepsis; AMS; A-Fib RVR Interval history: Patient seen and examined. Medical records and medication list reviewed. Pt intubated and sedated Discussed plan of care at bedside with patient.s RN Pending MRI brain Objective - Exam Narrative Exam: GENERAL: well-developed elderly -[place] female lying on bed intubated and sedated HEENT: Normocephalic. Atraumatic. No conjunctival congestion or icterus. Patient has moist mucous membranes. NECK: Supple. Trachea midline. CHEST/LUNGS: Clear to auscultated bilaterally, breathing nonlabored. No wheezes crackles or rhonchi. HEART/CARDIOVASCULAR: Regular in rate and rhythm. S1 and S2 positive. ABDOMEN: Abdomen is soft, nontender. Patient has normal bowel sounds. SKIN: There is no rash. Warm and dry. NEURO: Sedated MUSCULOSKELETAL: No joint effusion or tenderness. EXTRIMITY: No edema, no cyanosis or clubbing. PSYCH: Sedated - Constitutional Vitals: Vital Signs - 12hr 05/30/21 05/30/21 05/30/21 04:45 04:50 05:00 Temperature Pulse Rate 72 72 72 Pulse Rate [ From Monitor] Respiratory 19 16 19 Rate Blood Pressure 188/88 187/88 O2 Sat by Pulse 97 96 96 Oximetry 05/30/21 05/30/21 05/30/21 05:15 05:18 05:30 Temperature Pulse Rate 72 72 77 Pulse Rate [ From Monitor] Respiratory 19 20 Rate Blood Pressure 174/75 187/88 175/78 O2 Sat by Pulse 96 95 Oximetry 05/30/21 05/30/21 05/30/21 05:45 06:00 06:15 Temperature Pulse Rate 80 82 83 Pulse Rate [ From Monitor] Respiratory 20 20 20 Rate Blood Pressure 182/81 181/77 181/78 O2 Sat by Pulse 95 94 94 Oximetry 05/30/21 05/30/21 05/30/21 06:30 06:45 07:00 Temperature Pulse Rate 82 85 83 Pulse Rate [ From Monitor] Respiratory 20 20 19 Rate Blood Pressure 179/78 176/81 181/84 O2 Sat by Pulse 94 94 94 Oximetry 05/30/21 05/30/21 05/30/21 07:09 07:15 07:30 Temperature 97.9 F Pulse Rate 84 85 Pulse Rate [ From Monitor] Respiratory 20 20 Rate Blood Pressure 179/81 181/84 O2 Sat by Pulse 94 94 Oximetry 05/30/21 05/30/21 05/30/21 07:45 08:00 08:15 Temperature Pulse Rate 87 87 88 Pulse Rate [ 88 From Monitor] Respiratory 20 20 19 Rate Blood Pressure 183/84 184/80 186/84 O2 Sat by Pulse 94 96 95 Oximetry 05/30/21 05/30/21 05/30/21 08:30 08:45 09:00 Temperature Pulse Rate 89 89 89 Pulse Rate [ From Monitor] Respiratory 20 20 19 Rate Blood Pressure 185/83 186/83 180/79 O2 Sat by Pulse 95 95 95 Oximetry 05/30/21 05/30/21 05/30/21 09:10 09:15 09:30 Temperature Pulse Rate 90 89 89 Pulse Rate [ From Monitor] Respiratory 19 19 Rate Blood Pressure 187/81 193/81 184/80 O2 Sat by Pulse 97 94 94 Oximetry 05/30/21 05/30/21 05/30/21 09:45 10:00 10:09 Temperature Pulse Rate 88 89 88 Pulse Rate [ From Monitor] Respiratory 20 20 Rate Blood Pressure 183/82 186/84 186/84 O2 Sat by Pulse 94 94 Oximetry 05/30/21 05/30/21 05/30/21 10:12 10:15 10:30 Temperature Pulse Rate 89 89 89 Pulse Rate [ From Monitor] Respiratory 20 20 Rate Blood Pressure 186/84 188/83 190/83 O2 Sat by Pulse 95 94 Oximetry 05/30/21 05/30/21 05/30/21 10:45 11:00 11:15 Temperature Pulse Rate 84 82 81 Pulse Rate [ From Monitor] Respiratory 19 19 20 Rate Blood Pressure 174/81 168/82 170/80 O2 Sat by Pulse 95 95 95 Oximetry 05/30/21 05/30/21 05/30/21 11:30 11:45 12:00 Temperature 97.5 F L Pulse Rate 80 78 77 Pulse Rate [ 75 From Monitor] Respiratory 19 19 19 Rate Blood Pressure 169/79 164/80 162/78 O2 Sat by Pulse 95 95 96 Oximetry 05/30/21 05/30/21 05/30/21 12:15 12:30 12:45 Temperature Pulse Rate 77 77 75 Pulse Rate [ From Monitor] Respiratory 20 20 20 Rate Blood Pressure 170/82 170/83 165/82 O2 Sat by Pulse 97 97 97 Oximetry 05/30/21 05/30/21 05/30/21 13:00 13:15 13:31 Temperature Pulse Rate 74 75 82 Pulse Rate [ From Monitor] Respiratory 20 16 16 Rate Blood Pressure 173/78 181/87 200/86 O2 Sat by Pulse 97 97 93 Oximetry 05/30/21 05/30/21 05/30/21 13:45 13:50 15:47 Temperature Pulse Rate 77 77 72 Pulse Rate [ From Monitor] Respiratory 16 Rate Blood Pressure 186/82 186/82 169/81 O2 Sat by Pulse 94 96 95 Oximetry - Labs CBC & Chem 7: 06/01/21 04:58 06/01/21 04:58 Labs: Abnormal lab results 05/29/21 05/29/21 05/30/21 Range/Units 18:23 23:31 04:10 WBC (4.5-11.0) K/mm3 RBC (3.65-5.03) M/mm3 MCV (79-97) fl MCH (28-32) pg RDW (13.2-15.2) % Heparin Anti-Xa Level (0.3-0.7) U.I./ml ABG pH 7.532 H (7.320-7.450) POC ABG pCO2 30.0 L (32.0-48.0) mmHg POC ABG pO2 78.5 L (83-108) mmHg ABG Hemoglobin 11.3 L (12.0-17.5) ABG Sodium 126.7 L (136.0-145.0) mmol/L ABG Chloride 94.0 L (98-107) mmol/L ABG Glucose 270 H (65-95) mg/dL Carboxyhemoglobin 0.4 L (0.5-1.5) Sodium (137-145) mmol/L Chloride (98-107) mmol/L Carbon Dioxide (22-30) mmol/L Creatinine (0.6-1.2) mg/dL Glucose (65-100) mg/dL POC Glucose 236 H 252 H (70-105) mg/dL Arterial Blood Glucose 270 H (65-95) mg/dL Arterial Blood Ionized Calcium 4.4 L (4.6-5.3) mg/dL 05/30/21 05/30/21 05/30/21 Range/Units 05:06 06:23 11:15 WBC (4.5-11.0) K/mm3 RBC (3.65-5.03) M/mm3 MCV (79-97) fl MCH (28-32) pg RDW (13.2-15.2) % Heparin Anti-Xa Level (0.3-0.7) U.I./ml ABG pH (7.320-7.450) POC ABG pCO2 (32.0-48.0) mmHg POC ABG pO2 (83-108) mmHg ABG Hemoglobin (12.0-17.5) ABG Sodium (136.0-145.0) mmol/L ABG Chloride (98-107) mmol/L ABG Glucose (65-95) mg/dL Carboxyhemoglobin (0.5-1.5) Sodium 126 L D (137-145) mmol/L Chloride 91.9 L (98-107) mmol/L Carbon Dioxide 20 L D (22-30) mmol/L Creatinine 0.4 L (0.6-1.2) mg/dL Glucose 274 H (65-100) mg/dL POC Glucose 242 H 346 H (70-105) mg/dL Arterial Blood Glucose (65-95) mg/dL Arterial Blood Ionized Calcium (4.6-5.3) mg/dL 05/30/21 05/30/21 05/30/21 Range/Units 11:19 11:19 11:19 WBC 18.9 H (4.5-11.0) K/mm3 RBC 3.36 L (3.65-5.03) M/mm3 MCV 102 H (79-97) fl MCH 33 H (28-32) pg RDW 15.5 H (13.2-15.2) % Heparin Anti-Xa Level < 0.10 L (0.3-0.7) U.I./ml ABG pH (7.320-7.450) POC ABG pCO2 (32.0-48.0) mmHg POC ABG pO2 (83-108) mmHg ABG Hemoglobin (12.0-17.5) ABG Sodium (136.0-145.0) mmol/L ABG Chloride (98-107) mmol/L ABG Glucose (65-95) mg/dL Carboxyhemoglobin (0.5-1.5) Sodium 124 L (137-145) mmol/L Chloride (98-107) mmol/L Carbon Dioxide (22-30) mmol/L Creatinine (0.6-1.2) mg/dL Glucose (65-100) mg/dL POC Glucose (70-105) mg/dL Arterial Blood Glucose (65-95) mg/dL Arterial Blood Ionized Calcium (4.6-5.3) mg/dL HEART Score - HEART Score Troponin: Troponin T 0.226 ng/mL (0.00-0.029) H* D 05/25/21 15:19
[2021-05-30] MEDS: GLYCOPYRROLATE 2 MG TAB PO SCH ×2 (17:36→21:16)
[2021-05-30] MEDS: HEPARIN 10,000 UNITS/10 ML VIAL IV PRN (17:46)
[2021-05-30] MEDS: hydrALAZINE 25 MG TAB PO SCH ×2 (18:35→21:19)
[2021-05-30] MEDS: LORazepam 2 MG/ML VIAL IV PRN (20:46)
[2021-05-30] MEDS: hydrALAZINE 20 MG/1 ML INJ IV PRN (20:46)
--- NOTE | 2021-05-30 21:10 | Magnetic Resonance Report ---
MR brain wo con INDICATION / CLINICAL INFORMATION: 65 years Female; seizure. TECHNIQUE: Multiplanar, multisequence MR images of the brain were obtained. COMPARISON: CT-05/25/2021; MRI-02/27/2021 FINDINGS: BRAIN / INTRACRANIAL CONTENTS: Scattered areas of subtle increased diffusion signal are seen in the c ortex of both cerebral hemispheres. Most prevalent finding appears to involve the the junction of the middle frontal gyrus with the precentral gyrus on the right. Some of these areas may be positive on diffusion imaging. These findings are largely in a watershed distribution in both cerebral hemisphere s. Would question hypoperfusion episode resulting in acute/subacute ischemia. Post ictal change might be a consideration as well. Postcontrast imaging be helpful for further evaluation to ensure there i s no evidence of a leptomeningeal process, which might cause similar type findings-note, I do not see evidence of leptomeningeal disease on any other sequence. Otherwise, no acute hemorrhage, mass effect, midline shift, hydrocephalus, or acute, large territoria l infarct. No chronic infarct or atrophy. No significant white matter abnormality. CRANIOCERVICAL JUNCTION: No significant abnormality. VASCULAR FLOW-VOIDS: No significant abnormality. ORBITS: No significant abnormality of visualized orbits. SINUSES / MASTOIDS: Mild to moderate mucosal thickening seen throughout the paranasal sinuses. Air-fl uid level seen in the maxillary antra, as well as the sphenoid sinuses, which are partially opacified . There is also near-complete opacification the mastoids with air-fluid levels noted. These findings may be related to the patient being intubated. ADDITIONAL FINDINGS: None. IMPRESSION: 1. Changes on diffusion imaging as described above in detail. Postcontrast imaging may be of benefit. 2. Otherwise, no focal mass, hemorrhage, hydrocephalus, or large territorial infarct seen. 3. Sinus disease as described above. Signer Name: Dustin Lerma MD, III Signed: 05/30/2021 9:05 PM Workstation Name: [id number]
[2021-05-31] MEDS: INSULIN LISPRO 100 UNIT/ML SUB-Q SCH ×4 (00:55→19:06)
[2021-05-31] MEDS: hydrALAZINE 20 MG/1 ML INJ IV PRN ×2 (03:43→19:29)
[2021-05-31] MEDS: LORazepam 2 MG/ML VIAL IV PRN (03:44)
[2021-05-31 04:30] LABS: Hematocrit 31.1 % (30.3-42.9); Hemoglobin 10.6 gm/dl (10.1-14.3); Mean Corpuscular HGB Conc 34 % (30-34); Mean Corpuscular Volume 99 fl (79-97); Platelet Count 249 K/mm3 (140-440); Red Blood Count 3.13 M/mm3 (3.65-5.03)
[2021-05-31 04:51] LABS: Blood Urea Nitrogen 30 mg/dL (7-17); Calcium 8.6 mg/dL (8.4-10.2); Hemolysis Index 15
[2021-05-31 04:53] LABS: BUN/Creatinine Ratio 60
[2021-05-31] MEDS: hydrALAZINE 25 MG TAB PO SCH ×3 (05:22→21:49)
[2021-05-31] MEDS: HEPARIN/ 0.45% NACL DRIP 25,000 UNIT/500 ML BAG IV SCH (05:28)
[2021-05-31 08:14] LABS: Myelocytes # (Manual) 0.4 K/mm3; Total Cells Counted 100
[2021-05-31 08:16] LABS: Platelet Clumps Few; Toxic Granulation 1+
[2021-05-31 08:17] LABS: Platelet Estimate Consistent w Auto; Spherocytes Few
[2021-05-31] MEDS: GLYCOPYRROLATE 2 MG TAB PO SCH ×2 (09:56→21:47)
[2021-05-31] MEDS: METOPROLOL TARTRATE 100 MG TAB FEEDTUBE SCH ×2 (09:57→21:49)
[2021-05-31] MEDS: levETIRAcetam 500 MG/5 ML ORAL LIQD FEEDTUBE SCH ×2 (09:57→21:50)
[2021-05-31] MEDS: LOSARTAN 50 MG TAB PO SCH (09:57)
[2021-05-31] MEDS: amLODIPine 10 MG TAB PO SCH (09:57)
[2021-05-31] MEDS: FAMOTIDINE 20 MG TAB FEEDTUBE SCH ×2 (09:57→21:49)
[2021-05-31] MEDS: SENNOSIDES/DOCUSATE SODIUM 8.6/50 MG TAB FEEDTUBE SCH ×2 (09:58→21:47)
[2021-05-31] MEDS: INSULIN GLARGINE 100 UNITS/ML SUB-Q SCH (09:58)
--- NOTE | 2021-05-31 10:03 | Progress Note ---
Assessment and Plan Respiratory failure chest CTA: no evidence of PE negative COVID serology Atrial fibrillation, paroxysmal pt has reverted to sinus rhythm on IV heparin Sepsis Syncope Out of the hospital asystolic cardiopulmonary arrest Hypertension Chronic seizure disorder Diabetes 05/2020 dobutamine thallium stress test showed normal perfusion study. 05/2020 echo showed normal left ventricular systolic function. Supportive cardiac management. Subjective Date of service: 05/31/21 Principal diagnosis: Ac hypoxemic resp failure; Cardiac arrest; Seizures; Sepsis; AMS; A-Fib RVR Interval history: Patient remains unresponsive on the vent. Currently, property assessment monitor shows normal sinus rhythm. Objective Vital Signs Temp Pulse Pulse Resp BP Pulse Ox 05/31/21 09:57 82 169/71 05/31/21 09:48 79 169/71 98 05/31/21 07:00 97.6 F 68 16 140/66 98 05/31/21 06:45 70 15 146/67 98 05/31/21 06:30 75 16 153/84 98 05/31/21 06:15 69 16 142/65 98 05/31/21 06:00 73 17 151/62 98 05/31/21 05:45 76 18 160/66 98 05/31/21 05:30 76 16 149/68 98 05/31/21 05:22 77 148/66 05/31/21 05:15 76 16 148/66 98 05/31/21 05:00 76 16 139/67 98 05/31/21 04:45 77 16 152/63 99 05/31/21 04:30 75 16 140/62 98 05/31/21 04:15 74 16 142/64 98 05/31/21 04:00 74 16 143/62 98 05/31/21 03:45 73 16 165/74 99 05/31/21 03:43 74 168/73 05/31/21 03:37 74 05/31/21 03:30 74 16 168/73 99 05/31/21 03:15 73 16 163/74 98 05/31/21 03:13 98.0 F 05/31/21 03:00 73 16 167/72 99 05/31/21 02:45 72 16 161/72 99 05/31/21 02:30 72 16 162/72 98 05/31/21 02:15 73 16 170/72 99 05/31/21 02:00 73 16 165/69 99 09/22/21 01:45 72 16 162/71 98 09/22/21 01:30 73 16 166/72 99 09/22/21 01:15 73 16 160/74 98 09/22/21 01:00 73 16 162/70 98 09/22/21 00:45 73 16 166/72 98 09/22/21 00:30 75 16 165/73 98 09/22/21 00:15 75 15 176/85 98 09/22/21 00:00 97.9 F 72 16 161/74 96 09/21/21 23:45 72 16 154/71 98 09/21/21 23:30 73 16 156/72 98 09/21/21 23:15 74 16 167/75 98 09/21/21 23:10 74 165/73 98 09/21/21 23:00 73 16 153/70 98 09/21/21 22:57 74 16 159/72 98 09/21/21 22:45 74 16 159/72 97 09/21/21 22:30 75 16 162/73 98 09/21/21 22:15 75 16 151/70 98 09/21/21 22:00 76 16 144/65 98 09/21/21 21:45 77 16 142/63 97 09/21/21 21:30 79 16 157/69 98 09/21/21 21:19 75 143/60 09/21/21 21:16 75 143/60 09/21/21 21:15 75 16 158/68 97 09/21/21 21:00 70 16 158/68 97 09/21/21 20:58 71 182/86 97 09/21/21 20:46 72 182/86 09/21/21 20:45 73 16 182/86 98 09/21/21 20:30 72 16 183/80 98 09/21/21 20:15 71 16 182/83 98 09/21/21 20:00 97.7 F 70 16 184/79 96 09/21/21 19:45 70 16 174/77 98 09/21/21 19:30 70 16 181/77 98 09/21/21 19:15 70 16 173/80 98 09/21/21 19:00 70 16 168/79 98 09/21/21 18:15 72 16 173/83 98 09/21/21 18:12 73 177/80 05/30/21 18:00 72 16 177/80 98 05/30/21 17:45 76 20 178/79 98 05/30/21 17:30 72 16 172/74 97 05/30/21 17:15 73 16 171/74 96 05/30/21 17:00 74 16 171/76 96 05/30/21 16:45 74 16 176/76 96 05/30/21 16:30 74 16 171/73 96 05/30/21 16:15 73 16 171/71 95 05/30/21 16:00 97.8 F 74 85 14 166/71 97 05/30/21 15:47 72 169/81 95 05/30/21 15:45 73 16 169/81 95 05/30/21 15:30 73 18 171/80 05/30/21 15:23 74 15 184/84 74 L 05/30/21 14:00 77 16 184/84 95 05/30/21 13:50 77 186/82 96 05/30/21 13:45 77 16 186/82 94 05/30/21 13:31 82 16 200/86 93 05/30/21 13:15 75 16 181/87 97 05/30/21 13:00 74 20 173/78 97 05/30/21 12:45 75 20 165/82 97 05/30/21 12:30 77 20 170/83 97 05/30/21 12:15 77 20 170/82 97 05/30/21 12:00 77 75 19 162/78 96 05/30/21 11:45 78 19 164/80 95 05/30/21 11:30 97.5 F L 80 19 169/79 95 05/30/21 11:15 81 20 170/80 95 05/30/21 11:00 82 19 168/82 95 05/30/21 10:45 84 19 174/81 95 05/30/21 10:30 89 20 190/83 94 05/30/21 10:15 89 20 188/83 95 05/30/21 10:12 89 186/84 05/30/21 10:09 88 186/84 - Physical Examination General: Other (Unresponsive, on the vent) Cardiac: Positive: Reg Rate and Rhythm Neuro: Positive: Weakness (Unresponsive, on the vent) Abdomen: Positive: Soft Skin: Positive: Clear Extremities: Absent: edema - Labs and Meds Lipids 05/30/21 Range/Units 11:19 Triglycerides 124 (2-149) mg/dL CBC 05/30/21 05/31/21 Range/Units 11:19 04:00 WBC 18.9 H 20.9 H (4.5-11.0) K/mm3 RBC 3.36 L 3.13 L (3.65-5.03) M/mm3 Hgb 11.1 10.6 (10.1-14.3) gm/dl Hct 34.2 D 31.1 (30.3-42.9) % Plt Count 272 249 (140-440) K/mm3 Comprehensive Metabolic Panel 05/30/21 05/31/21 Range/Units 11:19 04:00 Sodium 124 L 133 L D (137-145) mmol/L Potassium 3.8 (3.6-5.0) mmol/L Chloride 95.4 L (98-107) mmol/L Carbon Dioxide 21 L (22-30) mmol/L BUN 30 H (7-17) mg/dL Creatinine 0.5 L (0.6-1.2) mg/dL Glucose 305 H (65-100) mg/dL Calcium 8.6 (8.4-10.2) mg/dL - Allied health notes Allied health notes reviewed: nursing
--- NOTE | 2021-05-31 12:45 | XRay Report ---
ABDOMEN 1 VIEW INDICATION / CLINICAL INFORMATION: check og tube placement. COMPARISON: KUB performed on 05/26/2021. FINDINGS: TUBES / LINES: An orogastric tube terminates over the gastric body. The sidehole of the tube projects over the distal GE junction/proximal gastric fundus. BOWEL GAS PATTERN: No significant abnormality. FREE AIR / EXTRALUMINAL GAS: None seen. ADDITIONAL FINDINGS: No significant additional findings. IMPRESSION: OG tube as above. No acute abnormality of the abdomen. Signer Name: Javier Wharton MD Signed: 05/31/2021 12:40 PM Workstation Name: [id number]
--- NOTE | 2021-05-31 12:48 | Progress Note ---
Assessment and Plan Acute hypoxemic respiratory failure on MVS Cardiopulmonary arrest wtih ROSC Seizure disorder Sepsis Toxic metabolic encephalopathy, possible anoxia Atrial fibrillation with RVR Metabolic acidosis Bilateral lower lobe infiltrates - reduced set rate to 12/min - MRI compatible with hypoperfussion injury - will likely need trach for safe liberation from MVS except there is significant improvement in mental status scopolamine patch added - magnesium citrate 300 mls p.o. X 1 - continue Keppra as AED - continue care as below otherwise; - daily SAT and SBT assessment as tolerated - continue to wean supplemental oxygen for target O2 sat's > 90% acutely - VAP bundle addressed - continue lung protective strategies - continue bronchodilators with pulmonary hygiene per RT - wean per pulmonary driven protocols otherwise - continue accuchecks with glycemic control per SSI (While critically ill target blood glucose of 140-180 mg/dL; avoid hypoglycemia) - sedation prn for target RASS 0 to -1 - avoid nephrotoxins, renally dose all medications - continue to avoid benzodiazepine's, reduce the possibility of delirium - AB's per ID rec's - prn analgesia per CPOT score - Maintenance of sleep-wake cycle, avoid delirium - continue enteral nutritional support at goal rate as tolerated - G.I. & VTE prophylaxis - PT/OT/ROM exercises - continue mobility protocols for pressure ulcer prophylaxis - Monitor hemodynamics closely - continue other care per attending / other consultants - discharge planning ongoing concurrently COVID SPECIFIC INTERVENTIONS - COVID-19 PCR negative .... Re-evaluate in am & prn CONDITION: CRITICAL PROGNOSIS: GUARDED CODE STATUS: FULL CODE The high probability of a clinically significant, sudden or life-threatening deterioration of the [respiratory, cardiovascular & neurologic] system(s) requ ired my full and direct attention, intervention and personal management. The aggregate critical care time was [36] minutes without overlap. Time includes spent on; [x] Data Review and interpretation [x] Patient assessment and monitoring of vital signs [x] Documentation [x] Medication orders and management Subjective Date of service: 05/31/21 Principal diagnosis: Ac hypoxemic resp failure; Cardiac arrest; Seizures; Sepsis; AMS; A-Fib RVR Interval history: Patient is seen today for: Acute hypoxemic respiratory failure; Cardiac arrest wtih ROSC; Seizure disorder; Sepsis; AMS; A-Fib with RVR Seen and examined at bedside; 24hour events reviewed; nursing and respiratory care staff consulted; no adverse overnight events reported to me; resting in bed; remains on MVS; AMS is persistent; no grand mal seizures; constipated; also oropharyngeal secretions large today Objective Vital Signs - 12hr 05/31/21 05/31/21 05/31/21 01:00 01:15 01:30 Temperature Pulse Rate 73 73 73 Respiratory 16 16 16 Rate Blood Pressure 162/70 160/74 166/72 O2 Sat by Pulse 98 98 99 Oximetry 05/31/21 05/31/21 05/31/21 01:45 02:00 02:15 Temperature Pulse Rate 72 73 73 Respiratory 16 16 16 Rate Blood Pressure 162/71 165/69 170/72 O2 Sat by Pulse 98 99 99 Oximetry 05/31/21 05/31/21 05/31/21 02:30 02:45 03:00 Temperature Pulse Rate 72 72 73 Respiratory 16 16 16 Rate Blood Pressure 162/72 161/72 167/72 O2 Sat by Pulse 98 99 99 Oximetry 05/31/21 05/31/21 05/31/21 03:13 03:15 03:30 Temperature 98.0 F Pulse Rate 73 74 Respiratory 16 16 Rate Blood Pressure 163/74 168/73 O2 Sat by Pulse 98 99 Oximetry 05/31/21 05/31/21 05/31/21 03:37 03:43 03:45 Temperature Pulse Rate 74 74 73 Respiratory 16 Rate Blood Pressure 168/73 165/74 O2 Sat by Pulse 99 Oximetry 05/31/21 05/31/21 05/31/21 04:00 04:15 04:30 Temperature Pulse Rate 74 74 75 Respiratory 16 16 16 Rate Blood Pressure 143/62 142/64 140/62 O2 Sat by Pulse 98 98 98 Oximetry 05/31/21 05/31/21 05/31/21 04:45 05:00 05:15 Temperature Pulse Rate 77 76 76 Respiratory 16 16 16 Rate Blood Pressure 152/63 139/67 148/66 O2 Sat by Pulse 99 98 98 Oximetry 05/31/21 05/31/21 05/31/21 05:22 05:30 05:45 Temperature Pulse Rate 77 76 76 Respiratory 16 18 Rate Blood Pressure 148/66 149/68 160/66 O2 Sat by Pulse 98 98 Oximetry 05/31/21 05/31/21 05/31/21 06:00 06:15 06:30 Temperature Pulse Rate 73 69 75 Respiratory 17 16 16 Rate Blood Pressure 151/62 142/65 153/84 O2 Sat by Pulse 98 98 98 Oximetry 05/31/21 05/31/21 05/31/21 06:45 07:00 07:15 Temperature 97.6 F Pulse Rate 70 68 67 Respiratory 15 16 15 Rate Blood Pressure 146/67 140/66 147/65 O2 Sat by Pulse 98 98 99 Oximetry 05/31/21 05/31/21 05/31/21 07:30 07:45 08:00 Temperature Pulse Rate 68 72 72 Respiratory 16 16 13 Rate Blood Pressure 148/62 155/67 153/67 O2 Sat by Pulse 98 99 99 Oximetry 05/31/21 05/31/21 05/31/21 08:15 08:30 08:45 Temperature Pulse Rate 73 75 76 Respiratory 19 15 16 Rate Blood Pressure 155/70 159/72 166/69 O2 Sat by Pulse 99 99 99 Oximetry 05/31/21 05/31/21 05/31/21 09:00 09:15 09:30 Temperature Pulse Rate 76 76 79 Respiratory 14 14 17 Rate Blood Pressure 164/70 175/78 168/72 O2 Sat by Pulse 99 99 99 Oximetry 05/31/21 05/31/21 05/31/21 09:45 09:48 09:57 Temperature Pulse Rate 78 79 82 Respiratory 16 Rate Blood Pressure 169/71 169/71 169/71 O2 Sat by Pulse 98 98 Oximetry 05/31/21 05/31/21 05/31/21 10:00 10:15 10:30 Temperature Pulse Rate 80 76 74 Respiratory 18 15 15 Rate Blood Pressure 178/69 154/64 145/66 O2 Sat by Pulse 98 98 99 Oximetry 05/31/21 05/31/21 05/31/21 10:45 11:00 11:15 Temperature Pulse Rate 69 68 67 Respiratory 14 16 19 Rate Blood Pressure 130/58 130/59 129/60 O2 Sat by Pulse 99 100 100 Oximetry 05/31/21 05/31/21 11:30 11:51 Temperature 97.0 F L Pulse Rate 64 Respiratory 15 Rate Blood Pressure 136/56 O2 Sat by Pulse 99 Oximetry Constitutional: no acute distress, other (elderly female with mildly increased respiratory effort at rest on MVS) Eyes: non-icteric ENT: oropharynx moist, oropharyngeal exudate pre (clear), other (ETT at 23cm [place]AP[place]) Neck: supple, no lymphadenopathy Effort: mildly labored Ascultation: Bilateral: diminished breath sounds, rhonchi Percussion: Bilateral: not dull Cardiovascular: irregular rhythm, other (S1,S2) Gastrointestinal: normoactive bowel sounds, soft, non-tender, non-distended Integumentary: normal Extremities: no cyanosis, pink and warm, pulses normal, other (Right femoral CVL) Neurologic: pupils equal and round, other (encephalopathic; sedated) Psychiatric: other (unable to assess) CBC and BMP: 05/31/21 04:00 05/31/21 04:00 ABG, PT/INR, D-dimer: ABG ABG pH 7.448 (7.320-7.450) 05/31/21 03:37 POC ABG pCO2 32.0 mmHg (32.0-48.0) 05/31/21 03:37 ABG pCO2 30.3 mm Hg 05/29/21 05:28 POC ABG pO2 101.1 mmHg (83-108) 05/31/21 03:37 ABG pO2 96.2 mm Hg (80.0-90.0) H 05/29/21 05:28 POC ABG HCO3 21.6 05/31/21 03:37 ABG O2 Saturation 97.7 (0-100) 05/31/21 03:37 PT/INR, D-dimer PT 15.0 Sec. (12.2-14.9) H 05/25/21 09:21 INR 1.13 (0.87-1.13) 05/25/21 09:21 D-Dimer > 87659 ng/mlDDU (0-234) H 05/25/21 09:21 Abnormal lab findings: Abnormal Labs 05/25/21 05/25/21 05/25/21 09:07 09:21 09:21 WBC 17.1 H RBC Hgb Hct MCV 106 H MCH 33 H RDW 15.6 H [place] # (Auto) Seg Neutrophils % Seg Neuts % (Manual) Lymphocytes % (Manual) Monocytes % (Manual) Seg Neutrophils # Seg Neutrophils # Man 10.1 H Lymphocytes # (Manual) 5.6 H Monocytes # (Manual) PT 15.0 H APTT 44.3 H D-Dimer > 25468 H Heparin Anti-Xa Level ABG pH 7.116 L POC ABG pCO2 POC ABG pO2 ABG pO2 ABG Hemoglobin ABG Oxyhemoglobin 93.7 L ABG Sodium ABG Potassium ABG Chloride ABG Glucose 395 H Carboxyhemoglobin Sodium Potassium Chloride Carbon Dioxide BUN Creatinine Glucose POC Glucose Lactic Acid Calcium Ferritin AST ALT Lactate Dehydrogenase Troponin T Total Protein Albumin HDL Cholesterol Arterial Blood Glucose 395 H Arterial Blood Ionized Calcium 4.4 L Urine WBC (Auto) 05/25/21 05/25/21 05/25/21 09:21 09:21 09:21 WBC RBC Hgb Hct MCV MCH RDW [place] # (Auto) Seg Neutrophils % Seg Neuts % (Manual) Lymphocytes % (Manual) Monocytes % (Manual) Seg Neutrophils # Seg Neutrophils # Man Lymphocytes # (Manual) Monocytes # (Manual) PT APTT D-Dimer Heparin Anti-Xa Level ABG pH POC ABG pCO2 POC ABG pO2 ABG pO2 ABG Hemoglobin ABG Oxyhemoglobin ABG Sodium ABG Potassium ABG Chloride ABG Glucose Carboxyhemoglobin Sodium Potassium Chloride Carbon Dioxide 10 L BUN Creatinine Glucose 423 H 424 H POC Glucose Lactic Acid Calcium 8.2 L Ferritin 321.6 H AST 162 H ALT 119 H Lactate Dehydrogenase 445 H Troponin T Total Protein 5.6 L Albumin 3.2 L HDL Cholesterol Arterial Blood Glucose Arterial Blood Ionized Calcium Urine WBC (Auto) 05/25/21 05/25/21 05/25/21 09:35 10:42 11:12 WBC RBC Hgb Hct MCV MCH RDW [place] # (Auto) Seg Neutrophils % Seg Neuts % (Manual) Lymphocytes % (Manual) Monocytes % (Manual) Seg Neutrophils # Seg Neutrophils # Man Lymphocytes # (Manual) Monocytes # (Manual) PT APTT D-Dimer Heparin Anti-Xa Level ABG pH POC ABG pCO2 POC ABG pO2 ABG pO2 ABG Hemoglobin ABG Oxyhemoglobin ABG Sodium ABG Potassium ABG Chloride ABG Glucose Carboxyhemoglobin Sodium Potassium Chloride Carbon Dioxide BUN Creatinine Glucose POC Glucose Lactic Acid 16.70 H* 7.70 H* Calcium Ferritin AST ALT Lactate Dehydrogenase Troponin T Total Protein Albumin HDL Cholesterol Arterial Blood Glucose Arterial Blood Ionized Calcium Urine WBC (Auto) 11.0 H 05/25/21 05/25/21 05/25/21 14:07 15:19 19:04 WBC RBC Hgb Hct MCV MCH RDW [place] # (Auto) Seg Neutrophils % Seg Neuts % (Manual) Lymphocytes % (Manual) Monocytes % (Manual) Seg Neutrophils # Seg Neutrophils # Man Lymphocytes # (Manual) Monocytes # (Manual) PT APTT D-Dimer Heparin Anti-Xa Level ABG pH POC ABG pCO2 POC ABG pO2 172.2 H ABG pO2 ABG Hemoglobin ABG Oxyhemoglobin 98.7 H ABG Sodium 135.7 L ABG Potassium ABG Chloride ABG Glucose 255 H Carboxyhemoglobin 0.3 L Sodium Potassium Chloride Carbon Dioxide BUN Creatinine Glucose POC Glucose Lactic Acid 3.90 H* Calcium Ferritin AST ALT Lactate Dehydrogenase Troponin T 0.226 H* D Total Protein Albumin HDL Cholesterol 64 H Arterial Blood Glucose 255 H Arterial Blood Ionized Calcium 3.8 L Urine WBC (Auto) 05/25/21 05/25/21 05/26/21 21:16 21:16 04:00 WBC RBC Hgb Hct MCV MCH RDW [place] # (Auto) Seg Neutrophils % Seg Neuts % (Manual) Lymphocytes % (Manual) Monocytes % (Manual) Seg Neutrophils # Seg Neutrophils # Man Lymphocytes # (Manual) Monocytes # (Manual) PT APTT D-Dimer Heparin Anti-Xa Level 1.19 H ABG pH 7.547 H POC ABG pCO2 POC ABG pO2 ABG pO2 ABG Hemoglobin 11.9 L ABG Oxyhemoglobin ABG Sodium 133.2 L ABG Potassium 3.1 L ABG Chloride ABG Glucose 243 H Carboxyhemoglobin 0.3 L Sodium Potassium Chloride Carbon Dioxide BUN Creatinine Glucose POC Glucose Lactic Acid 2.50 H* Calcium Ferritin AST ALT Lactate Dehydrogenase Troponin T Total Protein Albumin HDL Cholesterol Arterial Blood Glucose 243 H Arterial Blood Ionized Calcium Urine WBC (Auto) 05/26/21 05/26/21 05/26/21 05:49 05:49 17:33 WBC RBC Hgb Hct MCV MCH RDW [place] # (Auto) Seg Neutrophils % Seg Neuts % (Manual) Lymphocytes % (Manual) Monocytes % (Manual) Seg Neutrophils # Seg Neutrophils # Man Lymphocytes # (Manual) Monocytes # (Manual) PT APTT D-Dimer Heparin Anti-Xa Level ABG pH POC ABG pCO2 POC ABG pO2 ABG pO2 ABG Hemoglobin ABG Oxyhemoglobin ABG Sodium ABG Potassium ABG Chloride ABG Glucose Carboxyhemoglobin Sodium Potassium Chloride Carbon Dioxide BUN Creatinine Glucose 226 H POC Glucose 156 H Lactic Acid 2.30 H* Calcium 7.2 L Ferritin AST 111 H ALT 97 H Lactate Dehydrogenase Troponin T Total Protein 5.4 L Albumin 3.3 L HDL Cholesterol Arterial Blood Glucose Arterial Blood Ionized Calcium Urine WBC (Auto) 05/27/21 05/27/21 05/27/21 02:11 02:11 02:11 WBC 14.3 H RBC 3.27 L Hgb Hct MCV 99 H MCH 33 H RDW 15.3 H [place] # (Auto) 1.0 H Seg Neutrophils % Seg Neuts % (Manual) Lymphocytes % (Manual) Monocytes % (Manual) Seg Neutrophils # 10.0 H Seg Neutrophils # Man Lymphocytes # (Manual) Monocytes # (Manual) PT APTT D-Dimer Heparin Anti-Xa Level 0.80 H ABG pH POC ABG pCO2 POC ABG pO2 ABG pO2 ABG Hemoglobin ABG Oxyhemoglobin ABG Sodium ABG Potassium ABG Chloride ABG Glucose Carboxyhemoglobin Sodium Potassium 2.9 L* D Chloride Carbon Dioxide 31 H BUN 6 L Creatinine Glucose 215 H POC Glucose Lactic Acid Calcium 8.1 L Ferritin AST ALT Lactate Dehydrogenase Troponin T Total Protein Albumin HDL Cholesterol Arterial Blood Glucose Arterial Blood Ionized Calcium Urine WBC (Auto) 05/27/21 05/27/21 05/27/21 11:24 12:49 18:06 WBC RBC Hgb Hct MCV MCH RDW [place] # (Auto) Seg Neutrophils % Seg Neuts % (Manual) Lymphocytes % (Manual) Monocytes % (Manual) Seg Neutrophils # Seg Neutrophils # Man Lymphocytes # (Manual) Monocytes # (Manual) PT APTT D-Dimer Heparin Anti-Xa Level ABG pH POC ABG pCO2 POC ABG pO2 ABG pO2 ABG Hemoglobin ABG Oxyhemoglobin ABG Sodium ABG Potassium ABG Chloride ABG Glucose Carboxyhemoglobin Sodium Potassium Chloride Carbon Dioxide BUN Creatinine Glucose POC Glucose 151 H 165 H 137 H Lactic Acid Calcium Ferritin AST ALT Lactate Dehydrogenase Troponin T Total Protein Albumin HDL Cholesterol Arterial Blood Glucose Arterial Blood Ionized Calcium Urine WBC (Auto) 05/28/21 05/28/21 05/28/21 04:00 04:00 06:02 WBC 13.5 H RBC 3.05 L Hgb Hct MCV 100 H MCH 34 H RDW [place] # (Auto) 0.9 H Seg Neutrophils % 78.2 H Seg Neuts % (Manual) Lymphocytes % (Manual) Monocytes % (Manual) Seg Neutrophils # 10.6 H Seg Neutrophils # Man Lymphocytes # (Manual) Monocytes # (Manual) PT APTT D-Dimer Heparin Anti-Xa Level ABG pH 7.507 H POC ABG pCO2 POC ABG pO2 ABG pO2 ABG Hemoglobin 10.6 L ABG Oxyhemoglobin ABG Sodium 129.4 L ABG Potassium ABG Chloride ABG Glucose 243 H Carboxyhemoglobin 0.2 L Sodium 136 L D Potassium Chloride Carbon Dioxide BUN Creatinine Glucose 215 H POC Glucose Lactic Acid Calcium Ferritin AST ALT Lactate Dehydrogenase Troponin T Total Protein Albumin HDL Cholesterol Arterial Blood Glucose 243 H Arterial Blood Ionized Calcium 4.1 L Urine WBC (Auto) 05/28/21 05/28/21 05/29/21 11:27 23:02 04:30 WBC RBC Hgb 9.3 L Hct 26.7 L MCV MCH RDW [place] # (Auto) Seg Neutrophils % Seg Neuts % (Manual) Lymphocytes % (Manual) Monocytes % (Manual) Seg Neutrophils # Seg Neutrophils # Man Lymphocytes # (Manual) Monocytes # (Manual) PT APTT D-Dimer Heparin Anti-Xa Level ABG pH POC ABG pCO2 POC ABG pO2 ABG pO2 ABG Hemoglobin ABG Oxyhemoglobin ABG Sodium ABG Potassium ABG Chloride ABG Glucose Carboxyhemoglobin Sodium Potassium Chloride Carbon Dioxide BUN Creatinine Glucose POC Glucose 220 H 212 H Lactic Acid Calcium Ferritin AST ALT Lactate Dehydrogenase Troponin T Total Protein Albumin HDL Cholesterol Arterial Blood Glucose Arterial Blood Ionized Calcium Urine WBC (Auto) 05/29/21 05/29/21 05/29/21 05:02 05:28 12:55 WBC RBC Hgb Hct MCV MCH RDW [place] # (Auto) Seg Neutrophils % Seg Neuts % (Manual) Lymphocytes % (Manual) Monocytes % (Manual) Seg Neutrophils # Seg Neutrophils # Man Lymphocytes # (Manual) Monocytes # (Manual) PT APTT D-Dimer Heparin Anti-Xa Level ABG pH 7.516 H POC ABG pCO2 POC ABG pO2 ABG pO2 96.2 H ABG Hemoglobin 7.5 L ABG Oxyhemoglobin ABG Sodium ABG Potassium ABG Chloride ABG Glucose Carboxyhemoglobin Sodium Potassium Chloride Carbon Dioxide BUN Creatinine Glucose POC Glucose 197 H 251 H Lactic Acid Calcium Ferritin AST ALT Lactate Dehydrogenase Troponin T Total Protein Albumin HDL Cholesterol Arterial Blood Glucose Arterial Blood Ionized Calcium Urine WBC (Auto) 05/29/21 05/29/21 05/30/21 18:23 23:31 04:10 WBC RBC Hgb Hct MCV MCH RDW [place] # (Auto) Seg Neutrophils % Seg Neuts % (Manual) Lymphocytes % (Manual) Monocytes % (Manual) Seg Neutrophils # Seg Neutrophils # Man Lymphocytes # (Manual) Monocytes # (Manual) PT APTT D-Dimer Heparin Anti-Xa Level ABG pH 7.532 H POC ABG pCO2 30.0 L POC ABG pO2 78.5 L ABG pO2 ABG Hemoglobin 11.3 L ABG Oxyhemoglobin ABG Sodium 126.7 L ABG Potassium ABG Chloride 94.0 L ABG Glucose 270 H Carboxyhemoglobin 0.4 L Sodium Potassium Chloride Carbon Dioxide BUN Creatinine Glucose POC Glucose 236 H 252 H Lactic Acid Calcium Ferritin AST ALT Lactate Dehydrogenase Troponin T Total Protein Albumin HDL Cholesterol Arterial Blood Glucose 270 H Arterial Blood Ionized Calcium 4.4 L Urine WBC (Auto) 05/30/21 05/30/21 05/30/21 05:06 06:23 11:15 WBC RBC Hgb Hct MCV MCH RDW [place] # (Auto) Seg Neutrophils % Seg Neuts % (Manual) Lymphocytes % (Manual) Monocytes % (Manual) Seg Neutrophils # Seg Neutrophils # Man Lymphocytes # (Manual) Monocytes # (Manual) PT APTT D-Dimer Heparin Anti-Xa Level ABG pH POC ABG pCO2 POC ABG pO2 ABG pO2 ABG Hemoglobin ABG Oxyhemoglobin ABG Sodium ABG Potassium ABG Chloride ABG Glucose Carboxyhemoglobin Sodium 126 L D Potassium Chloride 91.9 L Carbon Dioxide 20 L D BUN Creatinine 0.4 L Glucose 274 H POC Glucose 242 H 346 H Lactic Acid Calcium Ferritin AST ALT Lactate Dehydrogenase Troponin T Total Protein Albumin HDL Cholesterol Arterial Blood Glucose Arterial Blood Ionized Calcium Urine WBC (Auto) 05/30/21 05/30/21 05/30/21 11:19 11:19 11:19 WBC 18.9 H RBC 3.36 L Hgb Hct MCV 102 H MCH 33 H RDW 15.5 H [place] # (Auto) Seg Neutrophils % Seg Neuts % (Manual) Lymphocytes % (Manual) Monocytes % (Manual) Seg Neutrophils # Seg Neutrophils # Man Lymphocytes # (Manual) Monocytes # (Manual) PT APTT D-Dimer Heparin Anti-Xa Level < 0.10 L ABG pH POC ABG pCO2 POC ABG pO2 ABG pO2 ABG Hemoglobin ABG Oxyhemoglobin ABG Sodium ABG Potassium ABG Chloride ABG Glucose Carboxyhemoglobin Sodium 124 L Potassium Chloride Carbon Dioxide BUN Creatinine Glucose POC Glucose Lactic Acid Calcium Ferritin AST ALT Lactate Dehydrogenase Troponin T Total Protein Albumin HDL Cholesterol Arterial Blood Glucose Arterial Blood Ionized Calcium Urine WBC (Auto) 05/30/21 05/30/21 05/31/21 17:02 23:27 03:37 WBC RBC Hgb Hct MCV MCH RDW [place] # (Auto) Seg Neutrophils % Seg Neuts % (Manual) Lymphocytes % (Manual) Monocytes % (Manual) Seg Neutrophils # Seg Neutrophils # Man Lymphocytes # (Manual) Monocytes # (Manual) PT APTT D-Dimer Heparin Anti-Xa Level ABG pH POC ABG pCO2 POC ABG pO2 ABG pO2 ABG Hemoglobin 11.6 L ABG Oxyhemoglobin ABG Sodium 130.0 L ABG Potassium ABG Chloride 95.0 L ABG Glucose 292 H Carboxyhemoglobin Sodium Potassium Chloride Carbon Dioxide BUN Creatinine Glucose POC Glucose 270 H 237 H Lactic Acid Calcium Ferritin AST ALT Lactate Dehydrogenase Troponin T Total Protein Albumin HDL Cholesterol Arterial Blood Glucose 292 H Arterial Blood Ionized Calcium Urine WBC (Auto) 05/31/21 05/31/21 05/31/21 04:00 04:00 05:20 WBC 20.9 H RBC 3.13 L Hgb Hct MCV 99 H MCH 34 H RDW [place] # (Auto) Seg Neutrophils % Seg Neuts % (Manual) 81.0 H Lymphocytes % (Manual) 8.0 L Monocytes % (Manual) 9.0 H Seg Neutrophils # Seg Neutrophils # Man 16.9 H Lymphocytes # (Manual) Monocytes # (Manual) 1.9 H PT APTT D-Dimer Heparin Anti-Xa Level ABG pH POC ABG pCO2 POC ABG pO2 ABG pO2 ABG Hemoglobin ABG Oxyhemoglobin ABG Sodium ABG Potassium ABG Chloride ABG Glucose Carboxyhemoglobin Sodium 133 L D Potassium Chloride 95.4 L Carbon Dioxide 21 L BUN 30 H Creatinine 0.5 L Glucose 305 H POC Glucose 269 H Lactic Acid Calcium Ferritin AST ALT Lactate Dehydrogenase Troponin T Total Protein Albumin HDL Cholesterol Arterial Blood Glucose Arterial Blood Ionized Calcium Urine WBC (Auto) 05/31/21 11:40 WBC RBC Hgb Hct MCV MCH RDW [place] # (Auto) Seg Neutrophils % Seg Neuts % (Manual) Lymphocytes % (Manual) Monocytes % (Manual) Seg Neutrophils # Seg Neutrophils # Man Lymphocytes # (Manual) Monocytes # (Manual) PT APTT D-Dimer Heparin Anti-Xa Level ABG pH POC ABG pCO2 POC ABG pO2 ABG pO2 ABG Hemoglobin ABG Oxyhemoglobin ABG Sodium ABG Potassium ABG Chloride ABG Glucose Carboxyhemoglobin Sodium Potassium Chloride Carbon Dioxide BUN Creatinine Glucose POC Glucose 364 H Lactic Acid Calcium Ferritin AST ALT Lactate Dehydrogenase Troponin T Total Protein Albumin HDL Cholesterol Arterial Blood Glucose Arterial Blood Ionized Calcium Urine WBC (Auto) Chest x-ray: pending Allied health notes reviewed: nursing
--- NOTE | 2021-05-31 13:36 | Progress Note ---
Assessment and Plan Assessment and Plan - Patient Problems # Anoxic brain injury -Supportive care, -neuro check, -MRI brain is suggestive of water shed Infarct Bilateral -- mostly related to H ypoperfusion -will repeat MRI with Gd !! -Over all prognosis is quarded -Off all sedation # Sepsis -Sepsis protocol: Chest x-ray, CBC, CMP, urinalysis, blood culture, monitor urine output every shift, monitor fluid balance, IV fluid resuscitation therapy, maintain mean arterial pressure greater than or equal to 65, IV pressor support as clinically indicated to maintain mean arterial pressure, serial lactic acid level. # Acute hypoxemic respiratory failure -Patient intubated and on ventilatory support. Critical care team consulted. Wean vent as tolerated, daily spontaneous breathing trial, sedation holiday, supportive care, arterial blood gas. # Toxic metabolic encephalopathy -Supportive care, neuro check, CT scan head, treat sepsis, # Cardiac arrest -Patient treated" with ACLS protocol with return of perfusing cardiac rhythm. # Atrial fibrillation with RVR -Cardiology team consulted, continue therapeutic anticoagulation as per cardiology team, supportive care., Rate control. # Metabolic acidosis -IV fluid resuscitation therapy, bicarbonate drip. # Seizure -Neuro check, -antiepileptic therapy with Keppradecrese to 500 IV BID -EEG showed no sign of seizure -MRI brain is noted # DVT prophylaxis -SCD to bilateral lower extremities while in bed, continue therapeutic anticoagulation # Advance care planning -Disease education conducted, care plan discussed, diagnoses discussed, poor prognosis discussed, patient is full code, patient son Antwon Higginbotham acknowledges understanding and agreement with care plan, +30 minutes. The high probability of a clinically significant, sudden or life threatening deterioration of the [cardiac, pulmonary, neuro, renal] system(s) required my full and direct attention, intervention and personal management. The aggregate critical care time was [30] minutes. This time is in addition to time spent performing reported procedures but includes the following: [x] Data Review and interpretation [x] Patient assessment and monitoring of vital signs [x] Documentation [x] Medication orders and management will follow over all prognosis is quarded Subjective Date of service: 05/31/21 Principal diagnosis: Ac hypoxemic resp failure; Cardiac arrest; Seizures; Sepsis; AMS; A-Fib RVR Interval history: status is unchanged she is with poorly controlled HTN and is with AF on IV heparine no more eye twitching ,not follow command eyes are wondering around may be fixate on when name called ? No reported seizure EEG showed no clear epileptic activity MRI is remarkable for water shed infarct bilateral -- will repeat with gd as per radiology Objective - Vital Sign Vital Signs - 12hr 05/31/21 05/31/21 05/31/21 01:45 02:00 02:15 Temperature Pulse Rate 72 73 73 Respiratory 16 16 16 Rate Blood Pressure 162/71 165/69 170/72 O2 Sat by Pulse 98 99 99 Oximetry 05/31/21 05/31/21 05/31/21 02:30 02:45 03:00 Temperature Pulse Rate 72 72 73 Respiratory 16 16 16 Rate Blood Pressure 162/72 161/72 167/72 O2 Sat by Pulse 98 99 99 Oximetry 05/31/21 05/31/21 05/31/21 03:13 03:15 03:30 Temperature 98.0 F Pulse Rate 73 74 Respiratory 16 16 Rate Blood Pressure 163/74 168/73 O2 Sat by Pulse 98 99 Oximetry 05/31/21 05/31/21 05/31/21 03:37 03:43 03:45 Temperature Pulse Rate 74 74 73 Respiratory 16 Rate Blood Pressure 168/73 165/74 O2 Sat by Pulse 99 Oximetry 05/31/21 05/31/21 05/31/21 04:00 04:15 04:30 Temperature Pulse Rate 74 74 75 Respiratory 16 16 16 Rate Blood Pressure 143/62 142/64 140/62 O2 Sat by Pulse 98 98 98 Oximetry 05/31/21 05/31/21 05/31/21 04:45 05:00 05:15 Temperature Pulse Rate 77 76 76 Respiratory 16 16 16 Rate Blood Pressure 152/63 139/67 148/66 O2 Sat by Pulse 99 98 98 Oximetry 05/31/21 05/31/21 05/31/21 05:22 05:30 05:45 Temperature Pulse Rate 77 76 76 Respiratory 16 18 Rate Blood Pressure 148/66 149/68 160/66 O2 Sat by Pulse 98 98 Oximetry 05/31/21 05/31/21 05/31/21 06:00 06:15 06:30 Temperature Pulse Rate 73 69 75 Respiratory 17 16 16 Rate Blood Pressure 151/62 142/65 153/84 O2 Sat by Pulse 98 98 98 Oximetry 05/31/21 05/31/21 05/31/21 06:45 07:00 07:15 Temperature 97.6 F Pulse Rate 70 68 67 Respiratory 15 16 15 Rate Blood Pressure 146/67 140/66 147/65 O2 Sat by Pulse 98 98 99 Oximetry 05/31/21 05/31/21 05/31/21 07:30 07:45 08:00 Temperature Pulse Rate 68 72 72 Respiratory 16 16 13 Rate Blood Pressure 148/62 155/67 153/67 O2 Sat by Pulse 98 99 99 Oximetry 05/31/21 05/31/21 05/31/21 08:15 08:30 08:45 Temperature Pulse Rate 73 75 76 Respiratory 19 15 16 Rate Blood Pressure 155/70 159/72 166/69 O2 Sat by Pulse 99 99 99 Oximetry 05/31/21 05/31/21 05/31/21 09:00 09:15 09:30 Temperature Pulse Rate 76 76 79 Respiratory 14 14 17 Rate Blood Pressure 164/70 175/78 168/72 O2 Sat by Pulse 99 99 99 Oximetry 05/31/21 05/31/21 05/31/21 09:45 09:48 09:57 Temperature Pulse Rate 78 79 82 Respiratory 16 Rate Blood Pressure 169/71 169/71 169/71 O2 Sat by Pulse 98 98 Oximetry 05/31/21 05/31/21 05/31/21 10:00 10:15 10:30 Temperature Pulse Rate 80 76 74 Respiratory 18 15 15 Rate Blood Pressure 178/69 154/64 145/66 O2 Sat by Pulse 98 98 99 Oximetry 05/31/21 05/31/21 05/31/21 10:45 11:00 11:15 Temperature Pulse Rate 69 68 67 Respiratory 14 16 19 Rate Blood Pressure 130/58 130/59 129/60 O2 Sat by Pulse 99 100 100 Oximetry 05/31/21 05/31/21 11:30 11:51 Temperature 97.0 F L Pulse Rate 64 Respiratory 15 Rate Blood Pressure 136/56 O2 Sat by Pulse 99 Oximetry - General Apperance Constitutional: comfortable - EENT EENT: PERRL, mucous membranes moist - Respiratory Respiratory: chest non-tender, lungs clear, rhonchi - Cardiovascular Cardiovascular: other (AF) Extremities: no peripheral edema bilat, no clubbing, cyanosis - Gastrointestinal Gastrointestinal: normoactive bowel sounds - Integumentary Integumentary: normal - Neurologic Cranial nerve examination: PERRL, other (eyes wondr around no corneal reflexes pupil reactive no clear facial asymmetry ) Detailed motor examination: other (no movment to stimuli) - Laboratory Findings CBC and BMP: 05/31/21 04:00 05/31/21 04:00 Abnormal Lab Findings: Abnormal Labs 05/25/21 05/25/21 05/25/21 09:07 09:21 09:21 WBC 17.1 H RBC Hgb Hct MCV 106 H MCH 33 H RDW 15.6 H Emanuel # (Auto) Seg Neutrophils % Seg Neuts % (Manual) Lymphocytes % (Manual) Monocytes % (Manual) Seg Neutrophils # Seg Neutrophils # Man 10.1 H Lymphocytes # (Manual) 5.6 H Monocytes # (Manual) PT 15.0 H APTT 44.3 H D-Dimer > 35625 H Heparin Anti-Xa Level ABG pH 7.116 L POC ABG pCO2 POC ABG pO2 ABG pO2 ABG Hemoglobin ABG Oxyhemoglobin 93.7 L ABG Sodium ABG Potassium ABG Chloride ABG Glucose 395 H Carboxyhemoglobin Sodium Potassium Chloride Carbon Dioxide BUN Creatinine Glucose POC Glucose Lactic Acid Calcium Ferritin AST ALT Lactate Dehydrogenase Troponin T Total Protein Albumin HDL Cholesterol Arterial Blood Glucose 395 H Arterial Blood Ionized Calcium 4.4 L Urine WBC (Auto) 05/25/21 05/25/21 05/25/21 09:21 09:21 09:21 WBC RBC Hgb Hct MCV MCH RDW Emanuel # (Auto) Seg Neutrophils % Seg Neuts % (Manual) Lymphocytes % (Manual) Monocytes % (Manual) Seg Neutrophils # Seg Neutrophils # Man Lymphocytes # (Manual) Monocytes # (Manual) PT APTT D-Dimer Heparin Anti-Xa Level ABG pH POC ABG pCO2 POC ABG pO2 ABG pO2 ABG Hemoglobin ABG Oxyhemoglobin ABG Sodium ABG Potassium ABG Chloride ABG Glucose Carboxyhemoglobin Sodium Potassium Chloride Carbon Dioxide 10 L BUN Creatinine Glucose 423 H 424 H POC Glucose Lactic Acid Calcium 8.2 L Ferritin 321.6 H AST 162 H ALT 119 H Lactate Dehydrogenase 445 H Troponin T Total Protein 5.6 L Albumin 3.2 L HDL Cholesterol Arterial Blood Glucose Arterial Blood Ionized Calcium Urine WBC (Auto) 05/25/21 05/25/21 05/25/21 09:35 10:42 11:12 WBC RBC Hgb Hct MCV MCH RDW Emanuel # (Auto) Seg Neutrophils % Seg Neuts % (Manual) Lymphocytes % (Manual) Monocytes % (Manual) Seg Neutrophils # Seg Neutrophils # Man Lymphocytes # (Manual) Monocytes # (Manual) PT APTT D-Dimer Heparin Anti-Xa Level ABG pH POC ABG pCO2 POC ABG pO2 ABG pO2 ABG Hemoglobin ABG Oxyhemoglobin ABG Sodium ABG Potassium ABG Chloride ABG Glucose Carboxyhemoglobin Sodium Potassium Chloride Carbon Dioxide BUN Creatinine Glucose POC Glucose Lactic Acid 16.70 H* 7.70 H* Calcium Ferritin AST ALT Lactate Dehydrogenase Troponin T Total Protein Albumin HDL Cholesterol Arterial Blood Glucose Arterial Blood Ionized Calcium Urine WBC (Auto) 11.0 H 05/25/21 05/25/21 05/25/21 14:07 15:19 19:04 WBC RBC Hgb Hct MCV MCH RDW Emanuel # (Auto) Seg Neutrophils % Seg Neuts % (Manual) Lymphocytes % (Manual) Monocytes % (Manual) Seg Neutrophils # Seg Neutrophils # Man Lymphocytes # (Manual) Monocytes # (Manual) PT APTT D-Dimer Heparin Anti-Xa Level ABG pH POC ABG pCO2 POC ABG pO2 172.2 H ABG pO2 ABG Hemoglobin ABG Oxyhemoglobin 98.7 H ABG Sodium 135.7 L ABG Potassium ABG Chloride ABG Glucose 255 H Carboxyhemoglobin 0.3 L Sodium Potassium Chloride Carbon Dioxide BUN Creatinine Glucose POC Glucose Lactic Acid 3.90 H* Calcium Ferritin AST ALT Lactate Dehydrogenase Troponin T 0.226 H* D Total Protein Albumin HDL Cholesterol 64 H Arterial Blood Glucose 255 H Arterial Blood Ionized Calcium 3.8 L Urine WBC (Auto) 05/25/21 05/25/21 05/26/21 21:16 21:16 04:00 WBC RBC Hgb Hct MCV MCH RDW Emanuel # (Auto) Seg Neutrophils % Seg Neuts % (Manual) Lymphocytes % (Manual) Monocytes % (Manual) Seg Neutrophils # Seg Neutrophils # Man Lymphocytes # (Manual) Monocytes # (Manual) PT APTT D-Dimer Heparin Anti-Xa Level 1.19 H ABG pH 7.547 H POC ABG pCO2 POC ABG pO2 ABG pO2 ABG Hemoglobin 11.9 L ABG Oxyhemoglobin ABG Sodium 133.2 L ABG Potassium 3.1 L ABG Chloride ABG Glucose 243 H Carboxyhemoglobin 0.3 L Sodium Potassium Chloride Carbon Dioxide BUN Creatinine Glucose POC Glucose Lactic Acid 2.50 H* Calcium Ferritin AST ALT Lactate Dehydrogenase Troponin T Total Protein Albumin HDL Cholesterol Arterial Blood Glucose 243 H Arterial Blood Ionized Calcium Urine WBC (Auto) 05/26/21 05/26/21 05/26/21 05:49 05:49 17:33 WBC RBC Hgb Hct MCV MCH RDW Emanuel # (Auto) Seg Neutrophils % Seg Neuts % (Manual) Lymphocytes % (Manual) Monocytes % (Manual) Seg Neutrophils # Seg Neutrophils # Man Lymphocytes # (Manual) Monocytes # (Manual) PT APTT D-Dimer Heparin Anti-Xa Level ABG pH POC ABG pCO2 POC ABG pO2 ABG pO2 ABG Hemoglobin ABG Oxyhemoglobin ABG Sodium ABG Potassium ABG Chloride ABG Glucose Carboxyhemoglobin Sodium Potassium Chloride Carbon Dioxide BUN Creatinine Glucose 226 H POC Glucose 156 H Lactic Acid 2.30 H* Calcium 7.2 L Ferritin AST 111 H ALT 97 H Lactate Dehydrogenase Troponin T Total Protein 5.4 L Albumin 3.3 L HDL Cholesterol Arterial Blood Glucose Arterial Blood Ionized Calcium Urine WBC (Auto) 05/27/21 05/27/21 05/27/21 02:11 02:11 02:11 WBC 14.3 H RBC 3.27 L Hgb Hct MCV 99 H MCH 33 H RDW 15.3 H Emanuel # (Auto) 1.0 H Seg Neutrophils % Seg Neuts % (Manual) Lymphocytes % (Manual) Monocytes % (Manual) Seg Neutrophils # 10.0 H Seg Neutrophils # Man Lymphocytes # (Manual) Monocytes # (Manual) PT APTT D-Dimer Heparin Anti-Xa Level 0.80 H ABG pH POC ABG pCO2 POC ABG pO2 ABG pO2 ABG Hemoglobin ABG Oxyhemoglobin ABG Sodium ABG Potassium ABG Chloride ABG Glucose Carboxyhemoglobin Sodium Potassium 2.9 L* D Chloride Carbon Dioxide 31 H BUN 6 L Creatinine Glucose 215 H POC Glucose Lactic Acid Calcium 8.1 L Ferritin AST ALT Lactate Dehydrogenase Troponin T Total Protein Albumin HDL Cholesterol Arterial Blood Glucose Arterial Blood Ionized Calcium Urine WBC (Auto) 05/27/21 05/27/21 05/27/21 11:24 12:49 18:06 WBC RBC Hgb Hct MCV MCH RDW Emanuel # (Auto) Seg Neutrophils % Seg Neuts % (Manual) Lymphocytes % (Manual) Monocytes % (Manual) Seg Neutrophils # Seg Neutrophils # Man Lymphocytes # (Manual) Monocytes # (Manual) PT APTT D-Dimer Heparin Anti-Xa Level ABG pH POC ABG pCO2 POC ABG pO2 ABG pO2 ABG Hemoglobin ABG Oxyhemoglobin ABG Sodium ABG Potassium ABG Chloride ABG Glucose Carboxyhemoglobin Sodium Potassium Chloride Carbon Dioxide BUN Creatinine Glucose POC Glucose 151 H 165 H 137 H Lactic Acid Calcium Ferritin AST ALT Lactate Dehydrogenase Troponin T Total Protein Albumin HDL Cholesterol Arterial Blood Glucose Arterial Blood Ionized Calcium Urine WBC (Auto) 05/28/21 05/28/21 05/28/21 04:00 04:00 06:02 WBC 13.5 H RBC 3.05 L Hgb Hct MCV 100 H MCH 34 H RDW Emanuel # (Auto) 0.9 H Seg Neutrophils % 78.2 H Seg Neuts % (Manual) Lymphocytes % (Manual) Monocytes % (Manual) Seg Neutrophils # 10.6 H Seg Neutrophils # Man Lymphocytes # (Manual) Monocytes # (Manual) PT APTT D-Dimer Heparin Anti-Xa Level ABG pH 7.507 H POC ABG pCO2 POC ABG pO2 ABG pO2 ABG Hemoglobin 10.6 L ABG Oxyhemoglobin ABG Sodium 129.4 L ABG Potassium ABG Chloride ABG Glucose 243 H Carboxyhemoglobin 0.2 L Sodium 136 L D Potassium Chloride Carbon Dioxide BUN Creatinine Glucose 215 H POC Glucose Lactic Acid Calcium Ferritin AST ALT Lactate Dehydrogenase Troponin T Total Protein Albumin HDL Cholesterol Arterial Blood Glucose 243 H Arterial Blood Ionized Calcium 4.1 L Urine WBC (Auto) 05/28/21 05/28/21 05/29/21 11:27 23:02 04:30 WBC RBC Hgb 9.3 L Hct 26.7 L MCV MCH RDW Emanuel # (Auto) Seg Neutrophils % Seg Neuts % (Manual) Lymphocytes % (Manual) Monocytes % (Manual) Seg Neutrophils # Seg Neutrophils # Man Lymphocytes # (Manual) Monocytes # (Manual) PT APTT D-Dimer Heparin Anti-Xa Level ABG pH POC ABG pCO2 POC ABG pO2 ABG pO2 ABG Hemoglobin ABG Oxyhemoglobin ABG Sodium ABG Potassium ABG Chloride ABG Glucose Carboxyhemoglobin Sodium Potassium Chloride Carbon Dioxide BUN Creatinine Glucose POC Glucose 220 H 212 H Lactic Acid Calcium Ferritin AST ALT Lactate Dehydrogenase Troponin T Total Protein Albumin HDL Cholesterol Arterial Blood Glucose Arterial Blood Ionized Calcium Urine WBC (Auto) 05/29/21 05/29/21 05/29/21 05:02 05:28 12:55 WBC RBC Hgb Hct MCV MCH RDW Emanuel # (Auto) Seg Neutrophils % Seg Neuts % (Manual) Lymphocytes % (Manual) Monocytes % (Manual) Seg Neutrophils # Seg Neutrophils # Man Lymphocytes # (Manual) Monocytes # (Manual) PT APTT D-Dimer Heparin Anti-Xa Level ABG pH 7.516 H POC ABG pCO2 POC ABG pO2 ABG pO2 96.2 H ABG Hemoglobin 7.5 L ABG Oxyhemoglobin ABG Sodium ABG Potassium ABG Chloride ABG Glucose Carboxyhemoglobin Sodium Potassium Chloride Carbon Dioxide BUN Creatinine Glucose POC Glucose 197 H 251 H Lactic Acid Calcium Ferritin AST ALT Lactate Dehydrogenase Troponin T Total Protein Albumin HDL Cholesterol Arterial Blood Glucose Arterial Blood Ionized Calcium Urine WBC (Auto) 05/29/21 05/29/21 05/30/21 18:23 23:31 04:10 WBC RBC Hgb Hct MCV MCH RDW Emanuel # (Auto) Seg Neutrophils % Seg Neuts % (Manual) Lymphocytes % (Manual) Monocytes % (Manual) Seg Neutrophils # Seg Neutrophils # Man Lymphocytes # (Manual) Monocytes # (Manual) PT APTT D-Dimer Heparin Anti-Xa Level ABG pH 7.532 H POC ABG pCO2 30.0 L POC ABG pO2 78.5 L ABG pO2 ABG Hemoglobin 11.3 L ABG Oxyhemoglobin ABG Sodium 126.7 L ABG Potassium ABG Chloride 94.0 L ABG Glucose 270 H Carboxyhemoglobin 0.4 L Sodium Potassium Chloride Carbon Dioxide BUN Creatinine Glucose POC Glucose 236 H 252 H Lactic Acid Calcium Ferritin AST ALT Lactate Dehydrogenase Troponin T Total Protein Albumin HDL Cholesterol Arterial Blood Glucose 270 H Arterial Blood Ionized Calcium 4.4 L Urine WBC (Auto) 05/30/21 05/30/21 05/30/21 05:06 06:23 11:15 WBC RBC Hgb Hct MCV MCH RDW Emanuel # (Auto) Seg Neutrophils % Seg Neuts % (Manual) Lymphocytes % (Manual) Monocytes % (Manual) Seg Neutrophils # Seg Neutrophils # Man Lymphocytes # (Manual) Monocytes # (Manual) PT APTT D-Dimer Heparin Anti-Xa Level ABG pH POC ABG pCO2 POC ABG pO2 ABG pO2 ABG Hemoglobin ABG Oxyhemoglobin ABG Sodium ABG Potassium ABG Chloride ABG Glucose Carboxyhemoglobin Sodium 126 L D Potassium Chloride 91.9 L Carbon Dioxide 20 L D BUN Creatinine 0.4 L Glucose 274 H POC Glucose 242 H 346 H Lactic Acid Calcium Ferritin AST ALT Lactate Dehydrogenase Troponin T Total Protein Albumin HDL Cholesterol Arterial Blood Glucose Arterial Blood Ionized Calcium Urine WBC (Auto) 05/30/21 05/30/21 05/30/21 11:19 11:19 11:19 WBC 18.9 H RBC 3.36 L Hgb Hct MCV 102 H MCH 33 H RDW 15.5 H Emanuel # (Auto) Seg Neutrophils % Seg Neuts % (Manual) Lymphocytes % (Manual) Monocytes % (Manual) Seg Neutrophils # Seg Neutrophils # Man Lymphocytes # (Manual) Monocytes # (Manual) PT APTT D-Dimer Heparin Anti-Xa Level < 0.10 L ABG pH POC ABG pCO2 POC ABG pO2 ABG pO2 ABG Hemoglobin ABG Oxyhemoglobin ABG Sodium ABG Potassium ABG Chloride ABG Glucose Carboxyhemoglobin Sodium 124 L Potassium Chloride Carbon Dioxide BUN Creatinine Glucose POC Glucose Lactic Acid Calcium Ferritin AST ALT Lactate Dehydrogenase Troponin T Total Protein Albumin HDL Cholesterol Arterial Blood Glucose Arterial Blood Ionized Calcium Urine WBC (Auto) 05/30/21 05/30/21 05/31/21 17:02 23:27 03:37 WBC RBC Hgb Hct MCV MCH RDW Emanuel # (Auto) Seg Neutrophils % Seg Neuts % (Manual) Lymphocytes % (Manual) Monocytes % (Manual) Seg Neutrophils # Seg Neutrophils # Man Lymphocytes # (Manual) Monocytes # (Manual) PT APTT D-Dimer Heparin Anti-Xa Level ABG pH POC ABG pCO2 POC ABG pO2 ABG pO2 ABG Hemoglobin 11.6 L ABG Oxyhemoglobin ABG Sodium 130.0 L ABG Potassium ABG Chloride 95.0 L ABG Glucose 292 H Carboxyhemoglobin Sodium Potassium Chloride Carbon Dioxide BUN Creatinine Glucose POC Glucose 270 H 237 H Lactic Acid Calcium Ferritin AST ALT Lactate Dehydrogenase Troponin T Total Protein Albumin HDL Cholesterol Arterial Blood Glucose 292 H Arterial Blood Ionized Calcium Urine WBC (Auto) 05/31/21 05/31/21 05/31/21 04:00 04:00 05:20 WBC 20.9 H RBC 3.13 L Hgb Hct MCV 99 H MCH 34 H RDW Emanuel # (Auto) Seg Neutrophils % Seg Neuts % (Manual) 81.0 H Lymphocytes % (Manual) 8.0 L Monocytes % (Manual) 9.0 H Seg Neutrophils # Seg Neutrophils # Man 16.9 H Lymphocytes # (Manual) Monocytes # (Manual) 1.9 H PT APTT D-Dimer Heparin Anti-Xa Level ABG pH POC ABG pCO2 POC ABG pO2 ABG pO2 ABG Hemoglobin ABG Oxyhemoglobin ABG Sodium ABG Potassium ABG Chloride ABG Glucose Carboxyhemoglobin Sodium 133 L D Potassium Chloride 95.4 L Carbon Dioxide 21 L BUN 30 H Creatinine 0.5 L Glucose 305 H POC Glucose 269 H Lactic Acid Calcium Ferritin AST ALT Lactate Dehydrogenase Troponin T Total Protein Albumin HDL Cholesterol Arterial Blood Glucose Arterial Blood Ionized Calcium Urine WBC (Auto) 05/31/21 11:40 WBC RBC Hgb Hct MCV MCH RDW Emanuel # (Auto) Seg Neutrophils % Seg Neuts % (Manual) Lymphocytes % (Manual) Monocytes % (Manual) Seg Neutrophils # Seg Neutrophils # Man Lymphocytes # (Manual) Monocytes # (Manual) PT APTT D-Dimer Heparin Anti-Xa Level ABG pH POC ABG pCO2 POC ABG pO2 ABG pO2 ABG Hemoglobin ABG Oxyhemoglobin ABG Sodium ABG Potassium ABG Chloride ABG Glucose Carboxyhemoglobin Sodium Potassium Chloride Carbon Dioxide BUN Creatinine Glucose POC Glucose 364 H Lactic Acid Calcium Ferritin AST ALT Lactate Dehydrogenase Troponin T Total Protein Albumin HDL Cholesterol Arterial Blood Glucose Arterial Blood Ionized Calcium Urine WBC (Auto)
--- NOTE | 2021-05-31 14:13 | Progress Note ---
Assessment and Plan 65-year-old female, history of nonepileptic spells, PTSD, closed head injury, hypertension, diabetes, CAD, presents to the ED following cardiac arrest. EMS states Patient collapsed and became unresponsive. Patient was pulseless and apneic. Rhythm was asystole. Patient was intubated by EMS. She was given epi x2. ACLS times approximately 10 minutes followed by return of pulses. Accu- Chek in the 200s. With initial rhythm check here in ED, patient was pulseless, so ACLS restarted. Patient has return of pulse and noted to be in atrial fib, initiated on iv keppra and heparin drip. Assessment and plan -- s/p cardiac arrest Pt on NSR on tele, cardiology consulted, ordered 2d echo -- Acute hypoxemic respiratory failure Patient intubated and on ventilatory support. Critical care team consulted. Wean vent as tolerated, daily spontaneous breathing trial, sedation holiday, supportive care, arterial blood gas per protocol. --SIRS, likely from cardiac arrest and seizure s/p abx, all Cx so far neg, monitor off abx --COVID PUI, r/o with negative test --Possible Anoxic brain injury due to cardiac arrest, cont Supportive care, neuro check, ordered MRI brain Consulted Neurology -- Atrial fibrillation with RVR, paroxysmal Cardiology team consulted, continue therapeutic anticoagulation as per c ardiology team with heparin drip, supportive care., Rate control. -- Metabolic acidosis IV fluid resuscitation therapy, follow BMP --Hypertension, initiated on antihypertensive, iv hydralazine as needed --Tonic clonic Seizure Neuro check, antiepileptic therapy with Keppra, neuro consult, EEG ordered -- DVT prophylaxis SCD to bilateral lower extremities while in bed, continue therapeutic a nticoagulation -- patient is full code, patient son Antwon Higginbotham acknowledges understanding and agreement with care plan, The high probability of a clinically significant, sudden or life threatening deterioration of the [multiple] system(s) required my full and direct attention, intervention and personal management. The aggregate critical care time was [30] minutes. This time is in addition to time spent performing reported procedures but includes the following: [x] Data Review and interpretation [x] Patient assessment and monitoring of vital signs [x] Documentation [x] Medication orders and management Daily clinical course: 05/26/21: Updated family at the bedside, Covid test is negative. Will order EEG and neuro consult. Remains intubated, follow clinically. Sedated on Midazolam and Propofol, just received one dose of Lorazepam for witnessed seizure by RN. NSR now, on heparin drip 05/27/21; remains intubated. pending EEG and neuro eval. wean off vent as tolerated. Continue heparin drip per cardiology, replete potassium yesterday, follow BMP. BP noted to be elevated, next started on antihypertensives. 05/28/21; BP noted to be elevated, initiated on antihypertensive, remains intubated. Pending neurology evaluation and EEG. Continue supportive care, follow BMP. 05/29/21: Ordered for MRI brain, continue Keppra, pending EEG. Appreciate neuro recommendation. follow BMP, tolerating TF 05/30/21: Patient remains intubated, pending MRI brain, follow neurology recommendation. EEG showed diffuse slowing. 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 off sedation now, cont to follow. gurded prognosis Subjective Date of service: 05/31/21 Principal diagnosis: Ac hypoxemic resp failure; Cardiac arrest; Seizures; Sepsis; AMS; A-Fib RVR Interval history: Patient seen and examined. Medical records and medication list reviewed. Pt intubated, off sedation, on TF Discussed plan of care at bedside with patient.s RN MRI brain suggestive of b/l infract Objective - Exam Narrative Exam: GENERAL: well-developed elderly -[place] female lying on bed intubated HEENT: Normocephalic. Atraumatic. No conjunctival congestion or icterus. Patient has moist mucous membranes. NECK: Supple. Trachea midline. CHEST/LUNGS: Clear to auscultated bilaterally, breathing nonlabored. No wheezes crackles or rhonchi. HEART/CARDIOVASCULAR: Regular in rate and rhythm. S1 and S2 positive. ABDOMEN: Abdomen is soft, nontender. Patient has normal bowel sounds. SKIN: There is no rash. Warm and dry. NEURO: unresponsive MUSCULOSKELETAL: No joint effusion or tenderness. EXTRIMITY: No edema, no cyanosis or clubbing. PSYCH: co-operative - Constitutional Vitals: Vital Signs - 12hr 05/31/21 05/31/21 05/31/21 02:15 02:30 02:45 Temperature Pulse Rate 73 72 72 Respiratory 16 16 16 Rate Blood Pressure 170/72 162/72 161/72 O2 Sat by Pulse 99 98 99 Oximetry 05/31/21 05/31/21 05/31/21 03:00 03:13 03:15 Temperature 98.0 F Pulse Rate 73 73 Respiratory 16 16 Rate Blood Pressure 167/72 163/74 O2 Sat by Pulse 99 98 Oximetry 05/31/21 05/31/21 05/31/21 03:30 03:37 03:43 Temperature Pulse Rate 74 74 74 Respiratory 16 Rate Blood Pressure 168/73 168/73 O2 Sat by Pulse 99 Oximetry 05/31/21 05/31/21 05/31/21 03:45 04:00 04:15 Temperature Pulse Rate 73 74 74 Respiratory 16 16 16 Rate Blood Pressure 165/74 143/62 142/64 O2 Sat by Pulse 99 98 98 Oximetry 05/31/21 05/31/21 05/31/21 04:30 04:45 05:00 Temperature Pulse Rate 75 77 76 Respiratory 16 16 16 Rate Blood Pressure 140/62 152/63 139/67 O2 Sat by Pulse 98 99 98 Oximetry 05/31/21 05/31/21 05/31/21 05:15 05:22 05:30 Temperature Pulse Rate 76 77 76 Respiratory 16 16 Rate Blood Pressure 148/66 148/66 149/68 O2 Sat by Pulse 98 98 Oximetry 05/31/21 05/31/21 05/31/21 05:45 06:00 06:15 Temperature Pulse Rate 76 73 69 Respiratory 18 17 16 Rate Blood Pressure 160/66 151/62 142/65 O2 Sat by Pulse 98 98 98 Oximetry 05/31/21 05/31/21 05/31/21 06:30 06:45 07:00 Temperature 97.6 F Pulse Rate 75 70 68 Respiratory 16 15 16 Rate Blood Pressure 153/84 146/67 140/66 O2 Sat by Pulse 98 98 98 Oximetry 05/31/21 05/31/21 05/31/21 07:15 07:30 07:45 Temperature Pulse Rate 67 68 72 Respiratory 15 16 16 Rate Blood Pressure 147/65 148/62 155/67 O2 Sat by Pulse 99 98 99 Oximetry 05/31/21 05/31/21 05/31/21 08:00 08:15 08:30 Temperature Pulse Rate 72 73 75 Respiratory 13 19 15 Rate Blood Pressure 153/67 155/70 159/72 O2 Sat by Pulse 99 99 99 Oximetry 05/31/21 05/31/21 05/31/21 08:45 09:00 09:15 Temperature Pulse Rate 76 76 76 Respiratory 16 14 14 Rate Blood Pressure 166/69 164/70 175/78 O2 Sat by Pulse 99 99 99 Oximetry 05/31/21 05/31/21 05/31/21 09:30 09:45 09:48 Temperature Pulse Rate 79 78 79 Respiratory 17 16 Rate Blood Pressure 168/72 169/71 169/71 O2 Sat by Pulse 99 98 98 Oximetry 05/31/21 05/31/21 05/31/21 09:57 10:00 10:15 Temperature Pulse Rate 82 80 76 Respiratory 18 15 Rate Blood Pressure 169/71 178/69 154/64 O2 Sat by Pulse 98 98 Oximetry 05/31/21 05/31/21 05/31/21 10:30 10:45 11:00 Temperature Pulse Rate 74 69 68 Respiratory 15 14 16 Rate Blood Pressure 145/66 130/58 130/59 O2 Sat by Pulse 99 99 100 Oximetry 05/31/21 05/31/21 05/31/21 11:15 11:30 11:51 Temperature 97.0 F L Pulse Rate 67 64 Respiratory 19 15 Rate Blood Pressure 129/60 136/56 O2 Sat by Pulse 100 99 Oximetry 05/31/21 13:53 Temperature Pulse Rate 73 Respiratory Rate Blood Pressure 164/64 O2 Sat by Pulse 99 Oximetry - Labs CBC & Chem 7: 06/01/21 04:58 06/01/21 04:58 Labs: Abnormal lab results 05/30/21 05/30/21 05/31/21 Range/Units 17:02 23:27 03:37 WBC (4.5-11.0) K/mm3 RBC (3.65-5.03) M/mm3 MCV (79-97) fl MCH (28-32) pg Seg Neuts % (Manual) (40.0-70.0) % Lymphocytes % (Manual) (13.4-35.0) % Monocytes % (Manual) (0.0-7.3) % Seg Neutrophils # Man (1.8-7.7) K/mm3 Monocytes # (Manual) (0.0-0.8) K/mm3 ABG Hemoglobin 11.6 L (12.0-17.5) ABG Sodium 130.0 L (136.0-145.0) mmol/L ABG Chloride 95.0 L (98-107) mmol/L ABG Glucose 292 H (65-95) mg/dL Sodium (137-145) mmol/L Chloride (98-107) mmol/L Carbon Dioxide (22-30) mmol/L BUN (7-17) mg/dL Creatinine (0.6-1.2) mg/dL Glucose (65-100) mg/dL POC Glucose 270 H 237 H (70-105) mg/dL Arterial Blood Glucose 292 H (65-95) mg/dL 05/31/21 05/31/21 05/31/21 Range/Units 04:00 04:00 05:20 WBC 20.9 H (4.5-11.0) K/mm3 RBC 3.13 L (3.65-5.03) M/mm3 MCV 99 H (79-97) fl MCH 34 H (28-32) pg Seg Neuts % (Manual) 81.0 H (40.0-70.0) % Lymphocytes % (Manual) 8.0 L (13.4-35.0) % Monocytes % (Manual) 9.0 H (0.0-7.3) % Seg Neutrophils # Man 16.9 H (1.8-7.7) K/mm3 Monocytes # (Manual) 1.9 H (0.0-0.8) K/mm3 ABG Hemoglobin (12.0-17.5) ABG Sodium (136.0-145.0) mmol/L ABG Chloride (98-107) mmol/L ABG Glucose (65-95) mg/dL Sodium 133 L D (137-145) mmol/L Chloride 95.4 L (98-107) mmol/L Carbon Dioxide 21 L (22-30) mmol/L BUN 30 H (7-17) mg/dL Creatinine 0.5 L (0.6-1.2) mg/dL Glucose 305 H (65-100) mg/dL POC Glucose 269 H (70-105) mg/dL Arterial Blood Glucose (65-95) mg/dL 05/31/21 Range/Units 11:40 WBC (4.5-11.0) K/mm3 RBC (3.65-5.03) M/mm3 MCV (79-97) fl MCH (28-32) pg Seg Neuts % (Manual) (40.0-70.0) % Lymphocytes % (Manual) (13.4-35.0) % Monocytes % (Manual) (0.0-7.3) % Seg Neutrophils # Man (1.8-7.7) K/mm3 Monocytes # (Manual) (0.0-0.8) K/mm3 ABG Hemoglobin (12.0-17.5) ABG Sodium (136.0-145.0) mmol/L ABG Chloride (98-107) mmol/L ABG Glucose (65-95) mg/dL Sodium (137-145) mmol/L Chloride (98-107) mmol/L Carbon Dioxide (22-30) mmol/L BUN (7-17) mg/dL Creatinine (0.6-1.2) mg/dL Glucose (65-100) mg/dL POC Glucose 364 H (70-105) mg/dL Arterial Blood Glucose (65-95) mg/dL HEART Score - HEART Score Troponin: Troponin T 0.226 ng/mL (0.00-0.029) H* D 05/25/21 15:19
[2021-05-31] MEDS ORDERED: MAGNESIUM CITRATE 300 ML ORAL LIQD PO SCH (15:00)
[2021-05-31] MEDS ORDERED: SCOPOLAMINE TRANSDERMAL PATCH 72 HR TD SCH (18:00)
[2021-06-01] MEDS: INSULIN LISPRO 100 UNIT/ML SUB-Q SCH ×4 (00:01→18:37)
[2021-06-01] MEDS: HEPARIN/ 0.45% NACL DRIP 25,000 UNIT/500 ML BAG IV SCH (00:02)
[2021-06-01 06:01] LABS: Hematocrit 31.8 % (30.3-42.9); Hemoglobin 10.9 gm/dl (10.1-14.3); Mean Corpuscular HGB Conc 34 % (30-34); Mean Corpuscular Volume 99 fl (79-97); Platelet Count 278 K/mm3 (140-440); Red Cell Distribution Width 15.1 % (13.2-15.2)
[2021-06-01 06:11] LABS: Blood Urea Nitrogen 30 mg/dL (7-17); Calcium 9.2 mg/dL (8.4-10.2); Hemolysis Index 20
[2021-06-01 06:16] LABS: BUN/Creatinine Ratio 60
[2021-06-01] MEDS: hydrALAZINE 25 MG TAB PO SCH (06:25)
[2021-06-01 07:15] LABS: Band Neutrophils # (Manual) 0.4 K/mm3; Total Cells Counted 100
[2021-06-01 07:16] LABS: Platelet Estimate Consistent w Auto; RBC Morphology Normal
--- NOTE | 2021-06-01 09:52 | Progress Note ---
Assessment and Plan Assessment and plan: 65-year-old female, history of nonepileptic spells, PTSD, closed head injury, hypertension, diabetes, CAD, presents to the ED following cardiac arrest. EMS states Patient collapsed and became unresponsive. Patient was pulseless and apneic. Rhythm was asystole. Patient was intubated by EMS. She was given epi x2. ACLS times approximately 10 minutes followed by return of pulses. Accu- Chek in the 200s. With initial rhythm check here in ED, patient was pulseless, so ACLS restarted. Patient has return of pulse and noted to be in atrial fib, initiated on iv keppra and heparin drip. Assessment and plan -- s/p cardiac arrest Pt on NSR on tele, cardiology consulted, ordered 2d echo -- Acute hypoxemic respiratory failure Patient intubated and on ventilatory support. Critical care team consulted. Wean vent as tolerated, daily spontaneous breathing trial, sedation holiday, supportive care, arterial blood gas per protocol. --SIRS, likely from cardiac arrest and seizure s/p abx, all Cx so far neg, monitor off abx --COVID PUI, r/o with negative test --Possible Anoxic brain injury due to cardiac arrest, cont Supportive care, neuro check, ordered MRI brain Consulted Neurology -- Atrial fibrillation with RVR, paroxysmal Cardiology team consulted, continue therapeutic anticoagulation as per cardiology team with heparin drip, supportive care., Rate control. -- Metabolic acidosis IV fluid resuscitation therapy, follow BMP --Hypertension, initiated on antihypertensive, iv hydralazine as needed --Tonic clonic Seizure Neuro check, antiepileptic therapy with Keppra, neuro consult, EEG ordered -- DVT prophylaxis SCD to bilateral lower extremities while in bed, continue therapeutic anticoagulation -- patient is full code, patient son Antwon Higginbotham acknowledges understanding and agreement with care plan, The high probability of a clinically significant, sudden or life threatening deterioration of the [multiple] system(s) required my full and direct attention, intervention and personal management. The aggregate critical care time was [30] minutes. This time is in addition to time spent performing reported procedures but includes the following: [x] Data Review and interpretation [x] Patient assessment and monitoring of vital signs [x] Documentation [x] Medication orders and management Daily clinical course: 05/26/21: Updated family at the bedside, Covid test is negative. Will order EEG and neuro consult. Remains intubated, follow clinically. Sedated on Midazolam and Propofol, just received one dose of Lorazepam for witnessed seizure by RN. NSR now, on heparin drip 05/27/21; remains intubated. pending EEG and neuro eval. wean off vent as tolerated. Continue heparin drip per cardiology, replete potassium yesterday, follow BMP. BP noted to be elevated, next started on antihypertensives. 05/28/21; BP noted to be elevated, initiated on antihypertensive, remains intu bated. Pending neurology evaluation and EEG. Continue supportive care, follow BMP. 05/29/21: Ordered for MRI brain, continue Keppra, pending EEG. Appreciate neuro recommendation. follow BMP, tolerating TF 05/30/21: Patient remains intubated, pending MRI brain, follow neurology recommendation. EEG showed diffuse slowing. 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 off sedation now, cont to follow. gurded prognosis 06/01 -MRI was suggestive of watershed infarct bilaterally and was seen by neurology and recommend to do MRI with gadolinium. Patient is off sedation and still unresponsive. Prognosis is guarded. History Interval history: Patient was seen and evaluated this morning Nursing issues reported overnight Patient was unresponsive Hospitalist Physical - Physical exam Narrative exam: Intubated and on mechanical ventilation. On tube feeding The patient appeared well nourished and normally developed. Vital signs as documented. Head exam is unremarkable. No scleral icterus . Neck is without jugular venous distension, thyromegaly, or carotid bruits. Lungs are clear to auscultation. Cardiac exam reveals regular rate and Rhythm. Abdominal exam reveals normal bowel sounds, nontender, no organomegaly. Extremities are nonedematous and both femoral and pedal pulses are normal. 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 - Constitutional Vitals: Temp Pulse Resp BP Pulse Ox 97 F L 80 17 166/71 98 06/01/21 07:00 06/01/21 08:45 06/01/21 06:00 06/01/21 08:45 06/01/21 08:45 General appearance: Present: mild distress HEART Score - HEART Score Troponin: Troponin T 0.226 ng/mL (0.00-0.029) H* D 05/25/21 15:19 Results - Labs CBC & Chem 7: 06/01/21 04:58 06/01/21 04:58 Labs: Laboratory Last Values WBC 20.7 K/mm3 (4.5-11.0) H 06/01/21 04:58 RBC 3.20 M/mm3 (3.65-5.03) L 06/01/21 04:58 Hgb 10.9 gm/dl (10.1-14.3) 06/01/21 04:58 Hct 31.8 % (30.3-42.9) 06/01/21 04:58 MCV 99 fl (79-97) H 06/01/21 04:58 MCH 34 pg (28-32) H 06/01/21 04:58 MCHC 34 % (30-34) 06/01/21 04:58 RDW 15.1 % (13.2-15.2) 06/01/21 04:58 Plt Count 278 K/mm3 (140-440) 06/01/21 04:58 Lymph % (Auto) 14.3 % (13.4-35.0) 05/28/21 04:00 [place] % (Auto) 6.9 % (0.0-7.3) 05/28/21 04:00 Eos % (Auto) 0.1 % (0.0-4.3) 05/28/21 04:00 Baso % (Auto) 0.5 % (0.0-1.8) 05/28/21 04:00 Lymph # (Auto) 1.9 K/mm3 (1.2-5.4) 05/28/21 04:00 [place] # (Auto) 0.9 K/mm3 (0.0-0.8) H 05/28/21 04:00 Eos # (Auto) 0.0 K/mm3 (0.0-0.4) 05/28/21 04:00 Baso # (Auto) 0.1 K/mm3 (0.0-0.1) 05/28/21 04:00 Add Manual Diff Complete 06/01/21 04:58 Total Counted 100 06/01/21 04:58 Seg Neutrophils % 78.2 % (40.0-70.0) H 05/28/21 04:00 Seg Neuts % (Manual) 82.0 % (40.0-70.0) H 06/01/21 04:58 Band Neutrophils % 2.0 % 06/01/21 04:58 Lymphocytes % (Manual) 9.0 % (13.4-35.0) L 06/01/21 04:58 Monocytes % (Manual) 7.0 % (0.0-7.3) 06/01/21 04:58 Eosinophils % (Manual) 1.0 % (0.0-4.3) 05/25/21 09: Metamyelocytes % 1.0 % 05/25/21 09: Myelocytes % 2.0 % 05/31/21 04:00 Nucleated RBC % Not Reportable 06/01/21 04:58 Seg Neutrophils # 10.6 K/mm3 (1.8-7.7) H 05/28/21 04:00 Seg Neutrophils # Man 17.0 K/mm3 (1.8-7.7) H 06/01/21 04:58 Band Neutrophils # 0.4 K/mm3 06/01/21 04:58 Lymphocytes # (Manual) 1.9 K/mm3 (1.2-5.4) 06/01/21 04:58 Abs React Lymphs (Man) 0.0 K/mm3 06/01/21 04:58 Monocytes # (Manual) 1.4 K/mm3 (0.0-0.8) H 06/01/21 04:58 Eosinophils # (Manual) 0.0 K/mm3 (0.0-0.4) 06/01/21 04:58 Basophils # (Manual) 0.0 K/mm3 (0.0-0.1) 06/01/21 04:58 Metamyelocytes # 0.0 K/mm3 06/01/21 04:58 Myelocytes # 0.0 K/mm3 06/01/21 04:58 Promyelocytes # 0.0 K/mm3 06/01/21 04:58 Blast Cells # 0.0 K/mm3 06/01/21 04:58 WBC Morphology Not Reportable 06/01/21 04:58 Hypersegmented Neuts Not Reportable 06/01/21 04:58 Hyposegmented Neuts Not Reportable 06/01/21 04:58 Hypogranular Neuts Not Reportable 06/01/21 04:58 Smudge Cells Not Reportable 06/01/21 04:58 Toxic Granulation Not Reportable 06/01/21 04:58 Toxic Vacuolation Not Reportable 06/01/21 04:58 Dohle Bodies Not Reportable 06/01/21 04:58 Pelger-Huet Anomaly Not Reportable 06/01/21 04:58 Peter Rods Not Reportable 06/01/21 04:58 Platelet Estimate Consistent w auto 06/01/21 04:58 Clumped Platelets Not Reportable 06/01/21 04:58 Plt Clumps, EDTA Not Reportable 06/01/21 04:58 Large Platelets Not Reportable 06/01/21 04:58 Giant Platelets Not Reportable 06/01/21 04:58 Platelet Satelliting Not Reportable 06/01/21 04:58 Plt Morphology Comment Not Reportable 06/01/21 04:58 RBC Morphology Normal 06/01/21 04:58 Dimorphic RBCs Not Reportable 06/01/21 04:58 Polychromasia Not Reportable 06/01/21 04:58 Hypochromasia Not Reportable 06/01/21 04:58 Poikilocytosis Not Reportable 06/01/21 04:58 Anisocytosis Not Reportable 06/01/21 04:58 Microcytosis Not Reportable 06/01/21 04:58 Macrocytosis Not Reportable 06/01/21 04:58 Spherocytes Not Reportable 06/01/21 04:58 Pappenheimer Bodies Not Reportable 06/01/21 04:58 Sickle Cells Not Reportable 06/01/21 04:58 Target Cells Not Reportable 06/01/21 04:58 Tear Drop Cells Not Reportable 06/01/21 04:58 Ovalocytes Not Reportable 06/01/21 04:58 Helmet Cells Not Reportable 06/01/21 04:58 Toribio-Buda Bodies Not Reportable 06/01/21 04:58 [place] Rings Not Reportable 06/01/21 04:58 Lin Cells Not Reportable 06/01/21 04:58 Bite Cells Not Reportable 06/01/21 04:58 Crenated Cell Not Reportable 06/01/21 04:58 Elliptocytes Not Reportable 06/01/21 04:58 Acanthocytes (Spur) Not Reportable 06/01/21 04:58 Rouleaux Not Reportable 06/01/21 04:58 Hemoglobin C Crystals Not Reportable 06/01/21 04:58 Schistocytes Not Reportable 06/01/21 04:58 Malaria parasites Not Reportable 06/01/21 04:58 Shravan Bodies Not Reportable 06/01/21 04:58 Hem Pathologist Commnt No 06/01/21 04:58 PT 15.0 Sec. (12.2-14.9) H 05/25/21 09:21 INR 1.13 (0.87-1.13) 05/25/21 09: APTT 44.3 Sec. (24.2-36.6) H 05/25/21 09:21 D-Dimer > 60517 ng/mlDDU (0-234) H 05/25/21 09:21 Heparin Anti-Xa Level 1.18 U.I./ml (0.3-0.7) H 06/01/21 04:58 ABG pH 7.520 (7.320-7.450) H 06/01/21 04:03 POC ABG pCO2 34.5 mmHg (32.0-48.0) 06/01/21 04:03 ABG pCO2 30.3 mm Hg 05/29/21 05:28 POC ABG pO2 66.0 mmHg (83-108) L 06/01/21 04:03 ABG pO2 96.2 mm Hg (80.0-90.0) H 05/29/21 05:28 POC ABG HCO3 27.5 06/01/21 04:03 ABG HCO3 24.0 mmol/L (20.0-26.0) 05/29/21 05:28 ABG O2 Saturation 93.4 (0-100) 06/01/21 04:03 ABG O2 Content 10.3 (0.0-44) 05/29/21 05:28 POC ABG Base Excess 4.8 06/01/21 04:03 ABG Base Excess 1.2 mmol/L (-2.0-3.0) 05/29/21 05:28 ABG Hemoglobin 12.0 (12.0-17.5) 06/01/21 04:03 ABG Oxyhemoglobin 92.5 (94-98) L 06/01/21 04:03 ABG Carboxyhemoglobin 1.6 % (0.0-5.0) 05/29/21 05:28 ABG Methemoglobin 0.3 (0.0-1.5) 06/01/21 04:03 ABG Sodium 133.6 mmol/L (136.0-145.0) L 06/01/21 04:03 ABG Potassium 3.9 mmol/L (3.40-4.50) 06/01/21 04:03 ABG Chloride 98.0 mmol/L (98-107) 06/01/21 04:03 ABG Glucose 250 mg/dL (65-95) H 06/01/21 04:03 Oxyhemoglobin 96.0 % (95.0-99.0) 05/29/21 05:28 Carboxyhemoglobin 0.7 (0.5-1.5) 06/01/21 04:03 FiO2 30 % 05/29/21 05:28 FiO2 % 30.0 06/01/21 04:03 Sodium 131 mmol/L (137-145) L 06/01/21 04:58 Potassium 4.0 mmol/L (3.6-5.0) 06/01/21 04:58 Chloride 95.7 mmol/L (98-107) L 06/01/21 04:58 Carbon Dioxide 23 mmol/L (22-30) 06/01/21 04:58 Anion Gap 16 mmol/L 06/01/21 04:58 BUN 30 mg/dL (7-17) H 06/01/21 04:58 Creatinine 0.5 mg/dL (0.6-1.2) L 06/01/21 04:58 Estimated GFR > 60 ml/min 06/01/21 04:58 BUN/Creatinine Ratio 60 % 06/01/21 04:58 Glucose 241 mg/dL (65-100) H 06/01/21 04:58 POC Glucose 215 mg/dL (70-105) H 06/01/21 05:29 Lactic Acid 2.30 mmol/L (0.7-2.0) H* 05/26/21 05:49 Calcium 9.2 mg/dL (8.4-10.2) 06/01/21 04:58 Ferritin 321.6 ng/mL (10.0-200.0) H 05/25/21 09:21 Total Bilirubin 0.70 mg/dL (0.1-1.2) 05/26/21 05:49 Direct Bilirubin < 0.2 mg/dL (0-0.2) 05/25/21 09:21 Indirect Bilirubin 0.2 mg/dL 05/25/21 09:21 AST 111 units/L (5-40) H 05/26/21 05:49 ALT 97 units/L (7-56) H 05/26/21 05:49 Alkaline Phosphatase 88 units/L (35-129) 05/26/21 05:49 Lactate Dehydrogenase 445 units/L (91-180) H 05/25/21 09:21 Troponin T 0.226 ng/mL (0.00-0.029) H* D 05/25/21 15:19 C-Reactive Protein 0.20 mg/dL (0.00-1.30) 05/25/21 09:21 NT-Pro-B Natriuret Pep 173.2 pg/mL (0-900) 05/25/21 09: Total Protein 5.4 g/dL (6.3-8.2) L 05/26/21 05:49 Albumin 3.3 g/dL (3.9-5) L 05/26/21 05:49 Albumin/Globulin Ratio 1.6 % 05/26/21 05:49 Triglycerides 124 mg/dL (2-149) 05/30/21 11:19 Cholesterol 198 mg/dL (50-199) 05/25/21 15:19 LDL Cholesterol Direct 80 mg/dL (50-130) 05/25/21 15:19 HDL Cholesterol 64 mg/dL (40-59) H 05/25/21 15:19 Cholesterol/HDL Ratio 3.09 % 05/25/21 15:19 Procalcitonin < 0.05 ng/mL (<0.15) 05/25/21 09:21 Arterial Blood Glucose 250 mg/dL (65-95) H 06/01/21 04:03 Arterial Blood Ionized Calcium 4.4 mg/dL (4.6-5.3) L 06/01/21 04:03 Urine Color Straw (Yellow) 05/25/21 10:42 Urine Turbidity Clear (Clear) 05/25/21 10:42 Urine pH 6.0 (5.0-7.0) 05/25/21 10:42 Ur Specific [place] 1.007 (1.003-1.030) 05/25/21 10:42 Urine Protein 100 mg/dl mg/dL (Negative) 05/25/21 10:42 Urine Glucose (UA) >=500 mg/dL (Negative) 05/25/21 10:42 Urine Ketones Neg mg/dL (Negative) 05/25/21 10:42 Urine Blood Mod (Negative) 05/25/21 10:42 Urine Nitrite Neg (Negative) 05/25/21 10:42 Ur Reducing Substances Not Reportable 05/25/21 10:42 Urine Bilirubin Neg (Negative) 05/25/21 10:42 Urine Ictotest Not Reportable 05/25/21 10:42 Urine Urobilinogen < 2.0 mg/dL (<2.0) 05/25/21 10:42 Ur Leukocyte Esterase Neg (Negative) 05/25/21 10:42 Urine WBC (Auto) 11.0 /HPF (0.0-6.0) H 05/25/21 10:42 Urine RBC (Auto) 1.0 /HPF (0.0-6.0) 05/25/21 10:42 U Epithel Cells (Auto) < 1.0 /HPF (0-13.0) 05/25/21 10:42 Urine Bacteria (Auto) 4+ /HPF (Negative) 05/25/21 10:42 Urine Mucus Few /HPF 05/25/21 10:42 Coronavirus (PCR) Negative (Negative) 05/30/21 08:15 Blood Type O POSITIVE 05/25/21 14:07 Antibody Screen Negative 05/25/21 14:07 Tan/IV: Voiding Method External Female Catheter Active Medications - Current Medications Current Medications: Generic Name Dose Route Start Last Admin Trade Name Freq PRN Reason Stop Dose Admin Acetaminophen 650 mg 05/25/21 13:48 05/28/21 04:14 Acetaminophen 325 Mg Tab PO 650 mg Q6H PRN Administration Pain MILD(1-3)/Fever >100.5/SOTOMAYOR Amlodipine Besylate 10 mg 05/27/21 16:00 05/31/21 09:57 Amlodipine 10 Mg Tab PO 10 mg QDAY ABDIRAHMAN Administration Lipase/Protease/Amylase 1 each 05/26/21 10:00 Lipase 10,500/Protease 25,000/Amylase 43,750 (Units) Dr Cap FEEDTUBE PRN PRN For Clogged Feeding Tube Dextrose 50 ml 05/28/21 14:28 Dextrose 50% In Water (25gm) 50 Ml Syringe IV Q30MIN PRN Hypoglycemia Protocol Famotidine 20 mg 05/29/21 10:00 05/31/21 21:49 Famotidine 20 Mg Tab FEEDTUBE 20 mg BID ABDIRAHMAN Administration Glycopyrrolate 2 mg 06/01/21 09:00 Glycopyrrolate 2 Mg Tab PO TID [facility] Heparin Sodium (Porcine) 2,700 unit 05/25/21 13:41 05/30/21 17:46 Heparin 10,000 Units/10 Ml Vial 40 unit/kg (2700 unit) 2,520 unit IV Administration Q6H PRN Anti-Xa Assay < 0.1 units/ml Hydralazine HCl 10 mg 05/30/21 10:38 05/31/21 19:29 Hydralazine 20 Mg/1 Ml Inj IV 10 mg Q4HR PRN Administration Hypertension Hydralazine HCl 100 mg 06/01/21 14:00 Hydralazine 100 Mg Tab PO TID [facility] Hydrophilic Ointment 1 applic 05/25/21 19:04 Lip Therapy Vaseline TP Q2HR PRN Dry Lips Propofol 1,000 mg in 100 mls @ 2.028 mls/hr 05/25/21 09:30 05/30/21 11:00 Diprivan 10 Mg/Ml IV 0 mcg/kg/min TITR ABDIRAHMAN 0 mls/hr Titration Protocol 5 MCG/KG/MIN NORepinephrine/NS 8 MG-250 ML 8 mg in 250 mls @ 3.75 mls/hr 05/25/21 09:30 Norepinephrine/Ns 8 Mg-250 Ml (Double Conc) IV TITRATE ABDIRAHMAN Protocol 2 MCG/MIN Heparin Sodium/Sodium Chloride 25,000 unit in 500 mls @ 20 mls/hr 05/25/21 15:00 06/01/21 08:56 Heparin/ 0.45% Nacl-25,000 Unit/500 Ml IV 1,150 units/hr TITRATE ABDIRAHMAN 23 mls/hr Titration Protocol 1,000 UNITS/HR Insulin Glargine 10 units 06/01/21 10:00 Insulin Glargine 100 Units/Ml SUB-Q DAILY [facility] Insulin Human Lispro 0 unit 05/29/21 12:00 06/01/21 06:25 Insulin Lispro 100 Unit/Ml SUB-Q 4 unit Q6HR ABDIRAHMAN Administration Protocol Labetalol HCl 20 mg 05/27/21 08:18 06/01/21 06:39 Labetalol 20 Mg/4 Ml Inj IV 20 mg Q4HR PRN Administration Hypertension Levetiracetam 500 mg 05/31/21 22:00 05/31/21 21:50 Levetiracetam 500 Mg/5 Ml Oral Liqd FEEDTUBE 500 mg Q12HR ABDIRAHMAN Administration Lorazepam 2 mg 05/25/21 19:46 05/31/21 03:44 Lorazepam 2 Mg/Ml Vial IV 2 mg ONCE PRN Administration Seizure Losartan Potassium 100 mg 05/27/21 16:00 05/31/21 09:57 Losartan 50 Mg Tab PO 100 mg QDAY ABDIRAHMAN Administration Metoprolol Tartrate 100 mg 05/30/21 10:00 05/31/21 21:49 Metoprolol Tartrate 100 Mg Tab FEEDTUBE 100 mg BID ABDIRAHMAN Administration Multi-Ingred Cream/Lotion/Oil/Oint 1 applic 05/25/21 19:04 Mineral Oil/Petrolatum, White Ophth Oint 3.5 Gm OU Q4HR PRN Dry Eye(s) Scopolamine 1 each 05/31/21 18:00 05/31/21 19:31 Scopolamine Transdermal Patch 72 Hr TD 1 each Q3D ABDIRAHMAN Administration Senna/Docusate Sodium 1 tab 05/25/21 22:00 05/31/21 21:47 Sennosides/Docusate Sodium 8.6/50 Mg Tab FEEDTUBE 1 tab BID ABDIRAHMAN Administration Simple Syrup 15 ml 05/26/21 10:00 Simple Syrup 15 Ml FEEDTUBE PRN PRN Hypoglycemia Simple Syrup 30 ml 05/26/21 10:00 Simple Syrup 15 Ml FEEDTUBE PRN PRN Hypoglycemia Sodium Bicarbonate 325 mg 05/26/21 10:00 Sodium Bicarbonate 325 Mg Tab FEEDTUBE PRN PRN For Clogged Feeding Tube Sodium Chloride 10 ml 05/25/21 22:00 06/01/21 08:54 Sodium Chloride 0.9% 10 Ml Flush Syringe IV Not Given BID ABDIRAHMAN Sodium Chloride 10 ml 05/25/21 13:48 05/30/21 02:45 Sodium Chloride 0.9% 10 Ml Flush Syringe IV 10 ml PRN PRN Administration LINE FLUSH Nutrition/Malnutrition Assess - Dietary Evaluation Nutrition/Malnutrition Findings: Nutrition Notes Start: 05/26/21 09:00 Freq: Status: Active Protocol: Document 05/31/21 12:37 SG (Rec: 05/31/21 12:44 SG [id number]) Nutrition Notes Need for Assessment generated from: MD Order Initial or Follow up Reassessment Current Diagnosis COPD,Diabetes,Sepsis, Hypertension,Respiratory Failure Other Pertinent Diagnosis cardiac arrest, seizure disorder Current Diet Tube feeding Labs/Tests Na 133 BG 305 Pertinent Medications Reviewed Height 5 ft 4 in Weight 63 kg [place] Body Weight (kg) 54.54 BMI 23.8 Weight Status Appropriate Subjective/Other Information Pt TF not running. Nurse reports pt vomiting and xray referral in process. Nurse reports TF will be restarted later today Burn Absent Trauma Absent Current % PO Negligible Minimum of two criteria No #1 Nutrition Diagnosis Inadequate oral intake Etiology ARF As Evidenced by Signs and Symptoms pt on vent and unable to consume PO Is patient on ventilator? Yes Is Patient Ambulatory and/or Out of Bed No REE-([facility]-confined to bed) 1385.676 Calculation Used for Recommendations [facility] Additional Notes Protein: (1.2-2g/kg) 81-135g Fluid: 1 ml/kcal or per MD Nutrition Intervention Change Diet Order: Start TF Nutrition Support: Vital AF 1.2 at 50 ml/hr Flush 75 ml q4h Kcal 1,440 Protein (gm) 90 Fluid (mL) 973 Goal #1 Meet at least 75% of protein and energy needs via TF Anticipated Discharge Needs: Unable to determine at this time Follow-Up By: 06/01/21 Additional Comments F/U: TF restart, tolerance.
[2021-06-01] MEDS ORDERED: INSULIN GLARGINE 100 UNITS/ML SUB-Q SCH (10:00)
[2021-06-01] MEDS: levETIRAcetam 500 MG/5 ML ORAL LIQD FEEDTUBE SCH ×2 (10:22→21:05)
[2021-06-01] MEDS: SENNOSIDES/DOCUSATE SODIUM 8.6/50 MG TAB FEEDTUBE SCH ×2 (10:22→21:03)
[2021-06-01] MEDS: amLODIPine 10 MG TAB PO SCH (10:23)
[2021-06-01] MEDS: METOPROLOL TARTRATE 100 MG TAB FEEDTUBE SCH (10:23)
[2021-06-01] MEDS: LOSARTAN 50 MG TAB PO SCH (10:23)
[2021-06-01] MEDS: FAMOTIDINE 20 MG TAB FEEDTUBE SCH ×2 (10:24→21:03)
[2021-06-01] MEDS: GLYCOPYRROLATE 2 MG TAB PO SCH ×3 (10:28→20:57)
--- NOTE | 2021-06-01 11:03 | Progress Note ---
Assessment and Plan Assessment and plan: This is a 65 year old female with HTN, nonepileptic spells, PTSD< close head injury, DM, CAD s/p stents and [place], independence, hyperlipidemia admitted with sepsis, pneumonia, acute proximal respiratory failure, toxic metabolic encephalopathy, suspected anoxic brain injury, metabolic acidosis Neuro: Toxic metabolic encephalopathy, likely anoxic brain injury, tonic-cloninc seziure; h/o nonepileptic spells, PTSD, closed head injury -Neurology consulted, appreciate recommendations -CT head completed->see results, without acute or large territorial infarct -Per neurology: MRI brain is suggestive of water shed Infarct Bilateral -- mostly related to Hypoperfusion -Off sedation -Intact cough/gag, pupils sluggish -Keppra -EEG showed no signs of seizure -Repeat MRI with contrast pending -prn ativan Cardio: S/p cardiac arrest, A. fib with RVR, h/o HTN -Cardiology consulted, apprecaite recommendations -Currently on losartan, hydralazine, amlodipine and metoprolol, titrate as needed -PRN hydral IV -Cardiology added nifidepine today -05/2020 dobutamine thallium stress test showed normal perfusion study. -05/2020 echo showed normal left ventricular systolic function. -NIBP per protocol -IV heparin Resp: Acute hypoxic respiratory failure -CCM consulted, apprecaite recommendations -Intubated 05/25 with 7.0 oett at 23 lip -AM vent settings: AC TV 450, R 12, PEEP 8, 30% FiO2 -ABG/CXR -Continuous SP02 monitoring -Scopalamine and robinul for secretions -VAP bundle GI: Constipation, protein -aspen malnutrition -Ntr consult for TF -PPI -24hr -1780 -BR: senokot -BM: 06/01 -Mag citrate 05/31 : Metabolic acidosis, hyponatremia, hypochloremia -purwick -Trend BMP -Monitor and replete electrolytes as needed Endo: Hyperglycemia, h/o DM -SSI -Lantus -Avoid hypoglycemia Heme: Leukocytosis -CTA chest without evidence of PE -IV heparin d/t afib -Trend CBC ID: Sepsis -COVID 19 PCR (-) -s/p cefepime 05/25-05/29 -admit cxr with infiltrate, CTA chest with dense dependent consolidation/atelectasis in lungs -Monitor temp and WBC curve -BC/UC/Tracheal aspirate NGTD from 05/25 -Covid 19 PCR negative The high probability of a clinically significant, sudden or life threatening deterioration of the [multiple] system(s) required my full and direct attention, intervention and personal management. The aggregate critical care time was [60] minutes. This time is in addition to time spent performing reported procedures but includes the following: [x] Data Review and interpretation [x] Patient assessment and monitoring of vital signs [x] Documentation [x] Medication orders and management Disposition Plan: icu Total Time Spent with Patient (Minutes): 60 History Interval history: 65-year-old female, history of nonepileptic spells, PTSD, closed head injury, hypertension, diabetes, CAD, presents to the ED following cardiac arrest. EMS states Patient collapsed and became unresponsive. Patient was pulseless and apneic. Rhythm was asystole. Patient was intubated by EMS. She was given epi x2. ACLS times approximately 10 minutes followed by return of pulses. Accu- Chek in the 200s. With initial rhythm check here in ED, patient was pulseless, so ACLS restarted. Patient has return of pulse and noted to be in atrial fib, initiated on iv keppra and heparin drip. 05/26/21: Updated family at the bedside, Covid test is negative. Will order EEG and neuro consult. Remains intubated, follow clinically. Sedated on Midazolam and Propofol, just received one dose of Lorazepam for witnessed seizure by RN. NSR now, on heparin drip 05/27/21; remains intubated. pending EEG and neuro eval. wean off vent as tolerated. Continue heparin drip per cardiology, replete potassium yesterday, follow BMP. BP noted to be elevated, next started on antihypertensives. 05/28/21; BP noted to be elevated, initiated on antihypertensive, remains intubated. Pending neurology evaluation and EEG. Continue supportive care, follow BMP. 05/29/21: Ordered for MRI brain, continue Keppra, pending EEG. Appreciate neuro recommendation. follow BMP, tolerating TF 05/30/21: Patient remains intubated, pending MRI brain, follow neurology recommendation. EEG showed diffuse slowing. 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 off sedation now, cont to follow. gurded prognosis 06/01 -MRI was suggestive of watershed infarct bilaterally and was seen by neurology and recommend to do MRI with gadolinium. Patient is off sedation and still unresponsive. Prognosis is guarded. Hospitalist Physical - Constitutional Vitals: Temp Pulse Resp BP Pulse Ox 97 F L 79 15 181/73 100 06/01/21 07:00 06/01/21 10:23 06/01/21 10:15 06/01/21 10:23 06/01/21 10:15 General appearance: Present: no acute distress, other (not responsive) - EENT Eyes: Present: PERRL (sluggish) ENT: dentition normal - Neck Neck: Present: normal ROM - Respiratory Respiratory effort: normal Respiratory: bilateral: diminished - Cardiovascular Rhythm: regular Heart Sounds: Present: S1 & S2 - Extremities Extremities: no ischemia, pulses intact, pulses symmetrical, No edema, normal temperature, normal color Peripheral Pulses: within normal limits - Abdominal General gastrointestinal: soft, non-tender, non-distended, hypoactive bowel sounds - Integumentary Integumentary: Present: warm, dry - Psychiatric Psychiatric: other - Neurologic Neurologic: other (open eyes spontanously, intact cough/ gag, no response to painful stimuli) - Allied Health Allied health notes reviewed: nursing, RT, social work HEART Score - HEART Score Troponin: Troponin T 0.226 ng/mL (0.00-0.029) H* D 05/25/21 15:19 Results - Labs CBC & Chem 7: 06/01/21 04:58 06/01/21 04:58 Labs: Laboratory Last Values WBC 20.7 K/mm3 (4.5-11.0) H 06/01/21 04:58 RBC 3.20 M/mm3 (3.65-5.03) L 06/01/21 04:58 Hgb 10.9 gm/dl (10.1-14.3) 06/01/21 04:58 Hct 31.8 % (30.3-42.9) 06/01/21 04:58 MCV 99 fl (79-97) H 06/01/21 04:58 MCH 34 pg (28-32) H 06/01/21 04:58 MCHC 34 % (30-34) 06/01/21 04:58 RDW 15.1 % (13.2-15.2) 06/01/21 04:58 Plt Count 278 K/mm3 (140-440) 06/01/21 04:58 Lymph % (Auto) 14.3 % (13.4-35.0) 05/28/21 04:00 [place] % (Auto) 6.9 % (0.0-7.3) 05/28/21 04:00 Eos % (Auto) 0.1 % (0.0-4.3) 05/28/21 04:00 Baso % (Auto) 0.5 % (0.0-1.8) 05/28/21 04:00 Lymph # (Auto) 1.9 K/mm3 (1.2-5.4) 05/28/21 04:00 [place] # (Auto) 0.9 K/mm3 (0.0-0.8) H 05/28/21 04:00 Eos # (Auto) 0.0 K/mm3 (0.0-0.4) 05/28/21 04:00 Baso # (Auto) 0.1 K/mm3 (0.0-0.1) 05/28/21 04:00 Add Manual Diff Complete 06/01/21 04:58 Total Counted 100 06/01/21 04:58 Seg Neutrophils % 78.2 % (40.0-70.0) H 05/28/21 04:00 Seg Neuts % (Manual) 82.0 % (40.0-70.0) H 06/01/21 04:58 Band Neutrophils % 2.0 % 06/01/21 04:58 Lymphocytes % (Manual) 9.0 % (13.4-35.0) L 06/01/21 04:58 Monocytes % (Manual) 7.0 % (0.0-7.3) 06/01/21 04:58 Eosinophils % (Manual) 1.0 % (0.0-4.3) 05/25/21 09:21 Metamyelocytes % 1.0 % 05/25/21 09:21 Myelocytes % 2.0 % 05/31/21 04:00 Nucleated RBC % Not Reportable 06/01/21 04:58 Seg Neutrophils # 10.6 K/mm3 (1.8-7.7) H 05/28/21 04:00 Seg Neutrophils # Man 17.0 K/mm3 (1.8-7.7) H 06/01/21 04:58 Band Neutrophils # 0.4 K/mm3 06/01/21 04:58 Lymphocytes # (Manual) 1.9 K/mm3 (1.2-5.4) 06/01/21 04:58 Abs React Lymphs (Man) 0.0 K/mm3 06/01/21 04:58 Monocytes # (Manual) 1.4 K/mm3 (0.0-0.8) H 06/01/21 04:58 Eosinophils # (Manual) 0.0 K/mm3 (0.0-0.4) 06/01/21 04:58 Basophils # (Manual) 0.0 K/mm3 (0.0-0.1) 06/01/21 04:58 Metamyelocytes # 0.0 K/mm3 06/01/21 04:58 Myelocytes # 0.0 K/mm3 06/01/21 04:58 Promyelocytes # 0.0 K/mm3 06/01/21 04:58 Blast Cells # 0.0 K/mm3 06/01/21 04:58 WBC Morphology Not Reportable 06/01/21 04:58 Hypersegmented Neuts Not Reportable 06/01/21 04:58 Hyposegmented Neuts Not Reportable 06/01/21 04:58 Hypogranular Neuts Not Reportable 06/01/21 04:58 Smudge Cells Not Reportable 06/01/21 04:58 Toxic Granulation Not Reportable 06/01/21 04:58 Toxic Vacuolation Not Reportable 06/01/21 04:58 Dohle Bodies Not Reportable 06/01/21 04:58 Pelger-Huet Anomaly Not Reportable 06/01/21 04:58 Peter Rods Not Reportable 06/01/21 04:58 Platelet Estimate Consistent w auto 06/01/21 04:58 Clumped Platelets Not Reportable 06/01/21 04:58 Plt Clumps, EDTA Not Reportable 06/01/21 04:58 Large Platelets Not Reportable 06/01/21 04:58 Giant Platelets Not Reportable 06/01/21 04:58 Platelet Satelliting Not Reportable 06/01/21 04:58 Plt Morphology Comment Not Reportable 06/01/21 04:58 RBC Morphology Normal 06/01/21 04:58 Dimorphic RBCs Not Reportable 06/01/21 04:58 Polychromasia Not Reportable 06/01/21 04:58 Hypochromasia Not Reportable 06/01/21 04:58 Poikilocytosis Not Reportable 06/01/21 04:58 Anisocytosis Not Reportable 06/01/21 04:58 Microcytosis Not Reportable 06/01/21 04:58 Macrocytosis Not Reportable 06/01/21 04:58 Spherocytes Not Reportable 06/01/21 04:58 Pappenheimer Bodies Not Reportable 06/01/21 04:58 Sickle Cells Not Reportable 06/01/21 04:58 Target Cells Not Reportable 06/01/21 04:58 Tear Drop Cells Not Reportable 06/01/21 04:58 Ovalocytes Not Reportable 06/01/21 04:58 Helmet Cells Not Reportable 06/01/21 04:58 [place] Bodies Not Reportable 06/01/21 04:58 [place] Rings Not Reportable 06/01/21 04:58 Lin Cells Not Reportable 06/01/21 04:58 Bite Cells Not Reportable 06/01/21 04:58 Crenated Cell Not Reportable 06/01/21 04:58 Elliptocytes Not Reportable 06/01/21 04:58 Acanthocytes (Spur) Not Reportable 06/01/21 04:58 Rouleaux Not Reportable 06/01/21 04:58 Hemoglobin C Crystals Not Reportable 06/01/21 04:58 Schistocytes Not Reportable 06/01/21 04:58 Malaria parasites Not Reportable 06/01/21 04:58 Shravan Bodies Not Reportable 06/01/21 04:58 Hem Pathologist Commnt No 06/01/21 04:58 PT 15.0 Sec. (12.2-14.9) H 05/25/21 09:21 INR 1.13 (0.87-1.13) 05/25/21 09:21 APTT 44.3 Sec. (24.2-36.6) H 05/25/21 09:21 D-Dimer > 54237 ng/mlDDU (0-234) H 05/25/21 09:21 Heparin Anti-Xa Level 1.18 U.I./ml (0.3-0.7) H 06/01/21 04:58 ABG pH 7.520 (7.320-7.450) H 06/01/21 04:03 POC ABG pCO2 34.5 mmHg (32.0-48.0) 06/01/21 04:03 ABG pCO2 30.3 mm Hg 05/29/21 05:28 POC ABG pO2 66.0 mmHg (83-108) L 06/01/21 04:03 ABG pO2 96.2 mm Hg (80.0-90.0) H 05/29/21 05:28 POC ABG HCO3 27.5 06/01/21 04:03 ABG HCO3 24.0 mmol/L (20.0-26.0) 05/29/21 05:28 ABG O2 Saturation 93.4 (0-100) 06/01/21 04:03 ABG O2 Content 10.3 (0.0-44) 05/29/21 05:28 POC ABG Base Excess 4.8 06/01/21 04:03 ABG Base Excess 1.2 mmol/L (-2.0-3.0) 05/29/21 05:28 ABG Hemoglobin 12.0 (12.0-17.5) 06/01/21 04:03 ABG Oxyhemoglobin 92.5 (94-98) L 06/01/21 04:03 ABG Carboxyhemoglobin 1.6 % (0.0-5.0) 05/29/21 05:28 ABG Methemoglobin 0.3 (0.0-1.5) 06/01/21 04:03 ABG Sodium 133.6 mmol/L (136.0-145.0) L 06/01/21 04:03 ABG Potassium 3.9 mmol/L (3.40-4.50) 06/01/21 04:03 ABG Chloride 98.0 mmol/L (98-107) 06/01/21 04:03 ABG Glucose 250 mg/dL (65-95) H 06/01/21 04:03 Oxyhemoglobin 96.0 % (95.0-99.0) 05/29/21 05:28 Carboxyhemoglobin 0.7 (0.5-1.5) 06/01/21 04:03 FiO2 30 % 05/29/21 05:28 FiO2 % 30.0 06/01/21 04:03 Sodium 131 mmol/L (137-145) L 06/01/21 04:58 Potassium 4.0 mmol/L (3.6-5.0) 06/01/21 04:58 Chloride 95.7 mmol/L (98-107) L 06/01/21 04:58 Carbon Dioxide 23 mmol/L (22-30) 06/01/21 04:58 Anion Gap 16 mmol/L 06/01/21 04:58 BUN 30 mg/dL (7-17) H 06/01/21 04:58 Creatinine 0.5 mg/dL (0.6-1.2) L 06/01/21 04:58 Estimated GFR > 60 ml/min 06/01/21 04:58 BUN/Creatinine Ratio 60 % 06/01/21 04:58 Glucose 241 mg/dL (65-100) H 06/01/21 04:58 POC Glucose 215 mg/dL (70-105) H 06/01/21 05:29 Lactic Acid 2.30 mmol/L (0.7-2.0) H* 05/26/21 05:49 Calcium 9.2 mg/dL (8.4-10.2) 06/01/21 04:58 Ferritin 321.6 ng/mL (10.0-200.0) H 05/25/21 09:21 Total Bilirubin 0.70 mg/dL (0.1-1.2) 05/26/21 05:49 Direct Bilirubin < 0.2 mg/dL (0-0.2) 05/25/21 09:21 Indirect Bilirubin 0.2 mg/dL 05/25/21 09:21 AST 111 units/L (5-40) H 05/26/21 05:49 ALT 97 units/L (7-56) H 05/26/21 05:49 Alkaline Phosphatase 88 units/L (35-129) 05/26/21 05:49 Lactate Dehydrogenase 445 units/L (91-180) H 05/25/21 09:21 Troponin T 0.226 ng/mL (0.00-0.029) H* D 05/25/21 15:19 C-Reactive Protein 0.20 mg/dL (0.00-1.30) 05/25/21 09:21 NT-Pro-B Natriuret Pep 173.2 pg/mL (0-900) 05/25/21 09:21 Total Protein 5.4 g/dL (6.3-8.2) L 05/26/21 05:49 Albumin 3.3 g/dL (3.9-5) L 05/26/21 05:49 Albumin/Globulin Ratio 1.6 % 05/26/21 05:49 Triglycerides 124 mg/dL (2-149) 05/30/21 11:19 Cholesterol 198 mg/dL (50-199) 05/25/21 15:19 LDL Cholesterol Direct 80 mg/dL (50-130) 05/25/21 15:19 HDL Cholesterol 64 mg/dL (40-59) H 05/25/21 15:19 Cholesterol/HDL Ratio 3.09 % 05/25/21 15:19 Procalcitonin < 0.05 ng/mL (<0.15) 05/25/21 09:21 Arterial Blood Glucose 250 mg/dL (65-95) H 06/01/21 04:03 Arterial Blood Ionized Calcium 4.4 mg/dL (4.6-5.3) L 06/01/21 04:03 Urine Color Straw (Yellow) 05/25/21 10:42 Urine Turbidity Clear (Clear) 05/25/21 10:42 Urine pH 6.0 (5.0-7.0) 05/25/21 10:42 Ur Specific [place] 1.007 (1.003-1.030) 05/25/21 10:42 Urine Protein 100 mg/dl mg/dL (Negative) 05/25/21 10:42 Urine Glucose (UA) >=500 mg/dL (Negative) 05/25/21 10:42 Urine Ketones Neg mg/dL (Negative) 05/25/21 10:42 Urine Blood Mod (Negative) 05/25/21 10:42 Urine Nitrite Neg (Negative) 05/25/21 10:42 Ur Reducing Substances Not Reportable 05/25/21 10:42 Urine Bilirubin Neg (Negative) 05/25/21 10:42 Urine Ictotest Not Reportable 05/25/21 10:42 Urine Urobilinogen < 2.0 mg/dL (<2.0) 05/25/21 10:42 Ur Leukocyte Esterase Neg (Negative) 05/25/21 10:42 Urine WBC (Auto) 11.0 /HPF (0.0-6.0) H 05/25/21 10:42 Urine RBC (Auto) 1.0 /HPF (0.0-6.0) 05/25/21 10:42 U Epithel Cells (Auto) < 1.0 /HPF (0-13.0) 05/25/21 10:42 Urine Bacteria (Auto) 4+ /HPF (Negative) 05/25/21 10:42 Urine Mucus Few /HPF 05/25/21 10:42 Coronavirus (PCR) Negative (Negative) 05/30/21 08:15 Blood Type O POSITIVE 05/25/21 14:07 Antibody Screen Negative 05/25/21 14:07 Tan/IV: Voiding Method External Female Catheter Active Medications - Current Medications Current Medications: Generic Name Dose Route Start Last Admin Trade Name Freq PRN Reason Stop Dose Admin Acetaminophen 650 mg 05/25/21 13:48 05/28/21 04:14 Acetaminophen 325 Mg Tab PO 650 mg Q6H PRN Administration Pain MILD(1-3)/Fever >100.5/SOTOMAYOR Amlodipine Besylate 10 mg 05/27/21 16:00 06/01/21 10:23 Amlodipine 10 Mg Tab PO 10 mg QDAY ABDIRAHMAN Administration Lipase/Protease/Amylase 1 each 05/26/21 10:00 Lipase 10,500/Protease 25,000/Amylase 43,750 (Units) Dr Munguia FEEDTUBE PRN PRN For Clogged Feeding Tube Dextrose 50 ml 05/28/21 14:28 Dextrose 50% In Water (25gm) 50 Ml Syringe IV Q30MIN PRN Hypoglycemia Protocol Famotidine 20 mg 05/29/21 10:00 06/01/21 10:24 Famotidine 20 Mg Tab FEEDTUBE 20 mg BID ABDIRAHMAN Administration Glycopyrrolate 2 mg 06/01/21 09:00 06/01/21 10:28 Glycopyrrolate 2 Mg Tab PO 2 mg TID ABDIRAHMAN Administration Heparin Sodium (Porcine) 2,700 unit 05/25/21 13:41 05/30/21 17:46 Heparin 10,000 Units/10 Ml Vial 40 unit/kg (2700 unit) 2,520 unit IV Administration Q6H PRN Anti-Xa Assay < 0.1 units/ml Hydralazine HCl 10 mg 05/30/21 10:38 05/31/21 19:29 Hydralazine 20 Mg/1 Ml Inj IV 10 mg Q4HR PRN Administration Hypertension Hydralazine HCl 100 mg 06/01/21 14:00 Hydralazine 100 Mg Tab PO TID ABDIRAHMAN Hydrophilic Ointment 1 applic 05/25/21 19:04 Lip Therapy Vaseline TP Q2HR PRN Dry Lips Propofol 1,000 mg in 100 mls @ 2.028 mls/hr 05/25/21 09:30 05/30/21 11:00 Diprivan 10 Mg/Ml IV 0 mcg/kg/min TITR ABDIRAHMAN 0 mls/hr Titration Protocol 5 MCG/KG/MIN NORepinephrine/NS 8 MG-250 ML 8 mg in 250 mls @ 3.75 mls/hr 05/25/21 09:30 Norepinephrine/Ns 8 Mg-250 Ml (Double Conc) IV TITRATE ABDIRAHMAN Protocol 2 MCG/MIN Heparin Sodium/Sodium Chloride 25,000 unit in 500 mls @ 20 mls/hr 05/25/21 15:00 06/01/21 08:56 Heparin/ 0.45% Nacl-25,000 Unit/500 Ml IV 1,150 units/hr TITRATE ABDIRAHMAN 23 mls/hr Titration Protocol 1,000 UNITS/HR Insulin Glargine 10 units 06/01/21 10:00 06/01/21 10:24 Insulin Glargine 100 Units/Ml SUB-Q 10 units DAILY ABDIRAHMAN Administration Insulin Human Lispro 0 unit 05/29/21 12:00 06/01/21 06:25 Insulin Lispro 100 Unit/Ml SUB-Q 4 unit Q6HR ABDIRAHMAN Administration Protocol Labetalol HCl 20 mg 05/27/21 08:18 06/01/21 06:39 Labetalol 20 Mg/4 Ml Inj IV 20 mg Q4HR PRN Administration Hypertension Levetiracetam 500 mg 05/31/21 22:00 06/01/21 10:22 Levetiracetam 500 Mg/5 Ml Oral Liqd FEEDTUBE 500 mg Q12HR ABDIRAHMAN Administration Lorazepam 2 mg 05/25/21 19:46 05/31/21 03:44 Lorazepam 2 Mg/Ml Vial IV 2 mg ONCE PRN Administration Seizure Losartan Potassium 100 mg 05/27/21 16:00 06/01/21 10:23 Losartan 50 Mg Tab PO 100 mg QDAY ABDIRAHMAN Administration Metoprolol Tartrate 100 mg 05/30/21 10:00 06/01/21 10:23 Metoprolol Tartrate 100 Mg Tab FEEDTUBE 100 mg BID ABDIRAHMAN Administration Multi-Ingred Cream/Lotion/Oil/Oint 1 applic 05/25/21 19:04 Mineral Oil/Petrolatum, White Ophth Oint 3.5 Gm OU Q4HR PRN Dry Eye(s) Scopolamine 1 each 05/31/21 18:00 05/31/21 19:31 Scopolamine Transdermal Patch 72 Hr TD 1 each Q3D ABDIRAHMAN Administration Senna/Docusate Sodium 1 tab 05/25/21 22:00 06/01/21 10:22 Sennosides/Docusate Sodium 8.6/50 Mg Tab FEEDTUBE 1 tab BID ABDIRAHMAN Administration Simple Syrup 15 ml 05/26/21 10:00 Simple Syrup 15 Ml FEEDTUBE PRN PRN Hypoglycemia Simple Syrup 30 ml 05/26/21 10:00 Simple Syrup 15 Ml FEEDTUBE PRN PRN Hypoglycemia Sodium Bicarbonate 325 mg 05/26/21 10:00 Sodium Bicarbonate 325 Mg Tab FEEDTUBE PRN PRN For Clogged Feeding Tube Sodium Chloride 10 ml 05/25/21 22:00 06/01/21 10:24 Sodium Chloride 0.9% 10 Ml Flush Syringe IV 10 ml BID ABDIRAHMAN Administration Sodium Chloride 10 ml 05/25/21 13:48 05/30/21 02:45 Sodium Chloride 0.9% 10 Ml Flush Syringe IV 10 ml PRN PRN Administration LINE FLUSH Nutrition/Malnutrition Assess - Dietary Evaluation Nutrition/Malnutrition Findings: Nutrition Notes Start: 05/26/21 09:00 Freq: Status: Active Protocol: Document 05/31/21 12:37 SG (Rec: 05/31/21 12:44 SG [id number]) Nutrition Notes Need for Assessment generated from: MD Order Initial or Follow up Reassessment Current Diagnosis COPD,Diabetes,Sepsis, Hypertension,Respiratory Failure Other Pertinent Diagnosis cardiac arrest, seizure disorder Current Diet Tube feeding Labs/Tests Na 133 BG 305 Pertinent Medications Reviewed Height 5 ft 4 in Weight 63 kg [place] Body Weight (kg) 54.54 BMI 23.8 Weight Status Appropriate Subjective/Other Information Pt TF not running. Nurse reports pt vomiting and xray referral in process. Nurse reports TF will be restarted later today Burn Absent Trauma Absent Current % PO Negligible Minimum of two criteria No #1 Nutrition Diagnosis Inadequate oral intake Etiology ARF As Evidenced by Signs and Symptoms pt on vent and unable to consume PO Is patient on ventilator? Yes Is Patient Ambulatory and/or Out of Bed No REE-([facility]-confined to bed) 3064.359 Calculation Used for Recommendations [facility] Additional Notes Protein: (1.2-2g/kg) 81-135g Fluid: 1 ml/kcal or per MD Nutrition Intervention Change Diet Order: Start TF Nutrition Support: Vital AF 1.2 at 50 ml/hr Flush 75 ml q4h Kcal 1,440 Protein (gm) 90 Fluid (mL) 973 Goal #1 Meet at least 75% of protein and energy needs via TF Anticipated Discharge Needs: Unable to determine at this time Follow-Up By: 06/01/21 Additional Comments F/U: TF restart, tolerance.
--- NOTE | 2021-06-01 11:39 | Progress Note ---
Assessment and Plan - Patient Problems (1) Uncontrolled hypertension Current Visit: Yes Status: Acute Plan to address problem: We will use a combination of valsartan and nifedipine for blood pressure management. (2) Respiratory failure Current Visit: Yes Status: Acute Plan to address problem: Admitted with syncope and cardiopulmonary arrest, suspect that syncope was initiated by a prolonged seizure episode. (3) Atrial fibrillation Current Visit: Yes Status: Acute Plan to address problem: Transient atrial fibrillation occurred during resuscitative measures for the patient's syncope and asystolic cardiopulmonary arrest. Subjective Date of service: 06/01/21 Principal diagnosis: Ac hypoxemic resp failure; Cardiac arrest; Seizures; Sepsis; AMS; A-Fib RVR Interval history: Patient is unresponsive, on the ventilator, stable sinus rhythm at 79. Blood pressure remains persistently elevated, 170s to 180s systolic. Objective Vital Signs Temp Pulse Pulse Pulse Pulse Pulse Pulse 06/01/21 11:00 71 06/01/21 10:45 76 06/01/21 10:30 80 06/01/21 10:23 79 06/01/21 10:15 80 06/01/21 10:00 80 06/01/21 09:45 78 06/01/21 09:30 80 06/01/21 09:15 78 06/01/21 09:00 79 06/01/21 08:45 84 06/01/21 08:30 76 06/01/21 08:15 78 06/01/21 08:00 79 79 06/01/21 07:45 72 06/01/21 07:30 74 06/01/21 07:15 78 06/01/21 07:00 97 F L 75 06/01/21 06:45 73 06/01/21 06:30 83 06/01/21 06:15 83 06/01/21 06:00 83 06/01/21 05:45 83 06/01/21 05:30 83 06/01/21 05:15 87 06/01/21 05:00 82 06/01/21 04:45 78 06/01/21 04:30 81 06/01/21 04:15 80 06/01/21 04:00 83 78 78 78 78 78 06/01/21 03:56 78 06/01/21 03:45 79 06/01/21 03:30 78 06/01/21 03:22 97.7 F 06/01/21 03:15 80 06/01/21 03:00 76 06/01/21 02:45 80 06/01/21 02:30 78 06/01/21 02:15 80 06/01/21 02:00 80 06/01/21 01:45 82 06/01/21 01:30 84 06/01/21 01:15 84 06/01/21 01:00 83 06/01/21 00:45 80 06/01/21 00:30 80 06/01/21 00:15 77 06/01/21 00:00 77 83 83 83 83 83 05/31/21 23:59 76 05/31/21 23:49 97.9 F 05/31/21 23:45 76 05/31/21 23:36 78 05/31/21 23:30 76 05/31/21 23:15 75 05/31/21 23:00 76 05/31/21 22:45 75 05/31/21 22:30 77 05/31/21 22:15 79 05/31/21 22:00 82 05/31/21 21:49 81 05/31/21 21:45 79 05/31/21 21:30 78 05/31/21 21:15 77 05/31/21 21:07 92 H 05/31/21 21:00 91 H 05/31/21 20:45 90 05/31/21 20:43 90 05/31/21 20:30 91 H 05/31/21 20:15 89 05/31/21 20:00 78 88 88 88 88 88 05/31/21 19:45 87 05/31/21 19:31 84 05/31/21 19:29 98 F 86 05/31/21 19:15 86 05/31/21 19:00 82 05/31/21 18:45 83 05/31/21 18:30 81 05/31/21 18:15 84 05/31/21 18:00 85 05/31/21 17:45 85 05/31/21 17:30 79 05/31/21 17:15 78 05/31/21 17:00 79 05/31/21 16:45 80 05/31/21 16:30 76 05/31/21 16:17 76 05/31/21 16:15 75 05/31/21 16:00 77 82 05/31/21 15:50 97.6 F 05/31/21 15:45 74 05/31/21 15:30 74 05/31/21 15:15 73 05/31/21 15:00 73 05/31/21 14:45 71 05/31/21 14:30 71 05/31/21 14:24 73 05/31/21 14:15 72 05/31/21 14:00 73 05/31/21 13:53 73 05/31/21 13:45 75 05/31/21 13:30 72 05/31/21 13:15 70 05/31/21 13:00 71 05/31/21 12:45 70 05/31/21 12:30 71 05/31/21 12:15 71 05/31/21 12:00 73 86 05/31/21 11:51 97.0 F L 05/31/21 11:45 73 Resp BP Pulse Ox 06/01/21 11:00 13 174/77 98 06/01/21 10:45 17 184/81 99 06/01/21 10:30 18 184/78 100 06/01/21 10:23 181/73 06/01/21 10:15 15 181/73 100 06/01/21 10:00 16 186/77 100 06/01/21 09:45 19 175/80 98 06/01/21 09:30 19 179/80 98 06/01/21 09:15 17 188/81 100 06/01/21 09:00 17 182/72 99 06/01/21 08:45 20 196/85 98 06/01/21 08:30 14 166/71 98 06/01/21 08:15 15 177/81 98 06/01/21 08:00 16 170/70 93 06/01/21 07:45 15 162/77 98 06/01/21 07:30 15 170/75 97 06/01/21 07:15 15 202/81 97 06/01/21 07:00 15 178/81 97 06/01/21 06:45 13 154/68 97 06/01/21 06:30 16 192/82 97 06/01/21 06:15 18 184/82 97 06/01/21 06:00 17 188/84 97 06/01/21 05:45 16 192/79 97 09/23/21 05:30 15 185/80 96 06/01/21 05:15 16 204/82 96 06/01/21 05:00 15 180/83 95 06/01/21 04:45 14 168/76 96 06/01/21 04:30 16 181/84 96 06/01/21 04:15 20 182/87 96 06/01/21 04:00 17 181/87 96 06/01/ 03:56 178/81 95 06/01/21 03:45 15 178/81 96 06/01/21 03:30 15 168/75 95 06/01/21 03:22 06/01/21 03:15 21 181/85 96 06/01/21 03:00 15 165/79 95 06/01/ 02:45 17 167/80 95 06/01/21 02:30 14 164/80 95 06/01/ 02:15 14 170/80 94 06/01/21 02:00 14 168/79 94 06/01/ 01:45 16 179/76 94 06/01/ 01:30 17 179/77 93 06/01/ 01:15 17 194/85 95 06/01/21 01:00 14 183/84 95 06/01/21 00:45 17 172/75 94 23/21 00:30 16 175/79 94 06/01/21 00:15 17 173/73 94 23/21 00:00 17 170/75 96 22/21 23:59 170/75 95 22/21 23:49 0922/21 23:45 15 168/74 95 22/21 23:36 15 162/74 94 0922/21 23:30 16 162/74 94 22/21 23:15 17 170/77 92 0922/21 23:00 17 169/82 94 0922/21 22:45 19 165/74 94 09/22/21 22:30 21 177/85 95 0922/21 22:15 17 171/86 95 0922/21 22:00 18 178/82 95 09/22/21 21:49 160/73 09/22/21 21:45 18 160/73 94 09/22/21 21:30 17 161/78 93 09/22/21 21:15 17 147/73 92 05/31/21 21:07 178/80 05/31/21 21:00 24 178/80 94 05/31/21 20:45 21 184/75 94 05/31/21 20:43 184/75 95 05/31/21 20:30 23 184/78 94 05/31/21 20:15 19 186/82 94 05/31/21 20:00 15 184/85 97 05/31/21 19:45 18 192/78 95 05/31/21 19:31 18 182/83 95 05/31/21 19:29 194/87 05/31/21 19:15 18 194/87 95 05/31/21 19:00 18 178/77 95 05/31/21 18:45 19 182/81 94 05/31/21 18:30 18 170/72 93 05/31/21 18:15 19 173/73 93 05/31/21 18:00 20 186/80 92 05/31/21 17:45 21 172/72 90 05/31/21 17:30 18 172/72 91 05/31/21 17:15 19 174/73 91 05/31/21 17:00 20 177/75 92 05/31/21 16:45 20 180/77 91 05/31/21 16:30 21 174/105 99 05/31/21 16:17 169/73 99 05/31/21 16:15 19 169/73 99 05/31/21 16:00 15 169/73 99 05/31/21 15:50 05/31/21 15:45 14 163/68 99 05/31/21 15:30 16 155/71 99 05/31/21 15:15 18 153/71 99 05/31/21 15:00 16 141/69 98 05/31/21 14:45 15 155/71 98 05/31/21 14:30 16 143/64 98 05/31/21 14:24 147/70 05/31/21 14:15 17 147/70 99 05/31/21 14:00 15 149/68 99 05/31/21 13:53 164/64 99 05/31/21 13:45 15 164/64 98 05/31/21 13:30 16 150/66 100 05/31/21 13:15 16 149/62 100 05/31/21 13:00 17 145/66 99 05/31/21 12:45 16 140/59 99 05/31/21 12:30 15 150/63 99 05/31/21 12:15 15 145/65 99 05/31/21 12:00 21 159/66 96 05/31/21 11:51 05/31/21 11:45 16 136/56 98 - Physical Examination General: Other (Unresponsive, on the vent) HEENT: Positive: Other (Pupils for) Neck: Positive: neck supple Cardiac: Positive: Reg Rate and Rhythm Lungs: Positive: Decreased Breath Sounds Neuro: Positive: Weakness (Unresponsive, on the vent) Abdomen: Positive: Soft Skin: Positive: Clear Extremities: Absent: edema - Labs and Meds CBC 06/01/21 Range/Units 04:58 WBC 20.7 H (4.5-11.0) K/mm3 RBC 3.20 L (3.65-5.03) M/mm3 Hgb 10.9 (10.1-14.3) gm/dl Hct 31.8 (30.3-42.9) % Plt Count 278 (140-440) K/mm3 Comprehensive Metabolic Panel 06/01/21 Range/Units 04:58 Sodium 131 L (137-145) mmol/L Potassium 4.0 (3.6-5.0) mmol/L Chloride 95.7 L (98-107) mmol/L Carbon Dioxide 23 (22-30) mmol/L BUN 30 H (7-17) mg/dL Creatinine 0.5 L (0.6-1.2) mg/dL Glucose 241 H (65-100) mg/dL Calcium 9.2 (8.4-10.2) mg/dL - Allied health notes Allied health notes reviewed: nursing
[2021-06-01] MEDS ORDERED: hydrALAZINE 20 MG/1 ML INJ IV PRN (11:43)
--- NOTE | 2021-06-01 13:14 | Progress Note ---
Assessment and Plan Assessment and Plan - Patient Problems # Anoxic brain injury -Supportive care, -neuro check, -MRI brain is suggestive of water shed Infarct Bilateral -- mostly related to H ypoperfusion -will repeat MRI with Gd !! -Over all prognosis is quarded -Off all sedation # Sepsis -Sepsis protocol: Chest x-ray, CBC, CMP, urinalysis, blood culture, monitor urine output every shift, monitor fluid balance, IV fluid resuscitation therapy, maintain mean arterial pressure greater than or equal to 65, IV pressor support as clinically indicated to maintain mean arterial pressure, serial lactic acid level. # Acute hypoxemic respiratory failure -Patient intubated and on ventilatory support. Critical care team consulted. Wean vent as tolerated, daily spontaneous breathing trial, sedation holiday, supportive care, arterial blood gas. # Toxic metabolic encephalopathy -Supportive care, neuro check, CT scan head, treat sepsis, # Cardiac arrest -Patient treated" with ACLS protocol with return of perfusing cardiac rhythm. # Atrial fibrillation with RVR -Cardiology team consulted, continue therapeutic anticoagulation as per cardiology team, supportive care., Rate control. # Metabolic acidosis -IV fluid resuscitation therapy, bicarbonate drip. # Seizure -Neuro check, -antiepileptic therapy with Keppra decrese to 250 IV BID -EEG showed no sign of seizure -MRI brain is noted # DVT prophylaxis -SCD to bilateral lower extremities while in bed, continue therapeutic anticoagulation # Advance care planning -Disease education conducted, care plan discussed, diagnoses discussed, poor prognosis discussed, patient is full code, patient son Antwon Higginbotham acknowledges understanding and agreement with care plan, +30 minutes. The high probability of a clinically significant, sudden or life threatening deterioration of the [cardiac, pulmonary, neuro, renal] system(s) required my full and direct attention, intervention and personal management. The aggregate critical care time was [30] minutes. This time is in addition to time spent performing reported procedures but includes the following: [x] Data Review and interpretation [x] Patient assessment and monitoring of vital signs [x] Documentation [x] Medication orders and management will follow over all prognosis is quarded Subjective Date of service: 06/01/21 Principal diagnosis: Ac hypoxemic resp failure; Cardiac arrest; Seizures; Sepsis; AMS; A-Fib RVR Interval history: status is unchanged she is with poorly controlled HTN and is with AF on IV heparine no more eye twitching ,not follow command eyes are wondering around may be fixate on when name called ? No reported seizure EEG showed no clear epileptic activity MRI is remarkable for water shed infarct bilateral -- will repeat with gd as per radiology still pending Objective - Vital Sign Vital Signs - 12hr 06/01/21 06/01/21 06/01/21 01:15 01:30 01:45 Temperature Pulse Rate 84 84 82 Pulse Rate [ From Monitor] Pulse Rate [ Left Dorsalis Pedis] Pulse Rate [ Left Radial] Pulse Rate [ Right Dorsalis Pedis] Pulse Rate [ Right Radial] Respiratory 17 17 16 Rate Blood Pressure 194/85 179/77 179/76 O2 Sat by Pulse 95 93 94 Oximetry 06/01/21 06/01/21 06/01/21 02:00 02:15 02:30 Temperature Pulse Rate 80 80 78 Pulse Rate [ From Monitor] Pulse Rate [ Left Dorsalis Pedis] Pulse Rate [ Left Radial] Pulse Rate [ Right Dorsalis Pedis] Pulse Rate [ Right Radial] Respiratory 14 14 14 Rate Blood Pressure 168/79 170/80 164/80 O2 Sat by Pulse 94 94 95 Oximetry 06/01/21 06/01/21 06/01/21 02:45 03:00 03:15 Temperature Pulse Rate 80 76 80 Pulse Rate [ From Monitor] Pulse Rate [ Left Dorsalis Pedis] Pulse Rate [ Left Radial] Pulse Rate [ Right Dorsalis Pedis] Pulse Rate [ Right Radial] Respiratory 17 15 21 Rate Blood Pressure 167/80 165/79 181/85 O2 Sat by Pulse 95 95 96 Oximetry 06/01/21 06/01/21 06/01/21 03:22 03:30 03:45 Temperature 97.7 F Pulse Rate 78 79 Pulse Rate [ From Monitor] Pulse Rate [ Left Dorsalis Pedis] Pulse Rate [ Left Radial] Pulse Rate [ Right Dorsalis Pedis] Pulse Rate [ Right Radial] Respiratory 15 15 Rate Blood Pressure 168/75 178/81 O2 Sat by Pulse 95 96 Oximetry 06/01/21 06/01/21 06/01/21 03:56 04:00 04:15 Temperature Pulse Rate 78 83 80 Pulse Rate [ 78 From Monitor] Pulse Rate [ 78 Left Dorsalis Pedis] Pulse Rate [ 78 Left Radial] Pulse Rate [ 78 Right Dorsalis Pedis] Pulse Rate [ 78 Right Radial] Respiratory 17 20 Rate Blood Pressure 178/81 181/87 182/87 O2 Sat by Pulse 95 96 96 Oximetry 06/01/21 06/01/21 06/01/21 04:30 04:45 05:00 Temperature Pulse Rate 81 78 82 Pulse Rate [ From Monitor] Pulse Rate [ Left Dorsalis Pedis] Pulse Rate [ Left Radial] Pulse Rate [ Right Dorsalis Pedis] Pulse Rate [ Right Radial] Respiratory 16 14 15 Rate Blood Pressure 181/84 168/76 180/83 O2 Sat by Pulse 96 96 95 Oximetry 06/01/21 06/01/21 06/01/21 05:15 05:30 05:45 Temperature Pulse Rate 87 83 83 Pulse Rate [ From Monitor] Pulse Rate [ Left Dorsalis Pedis] Pulse Rate [ Left Radial] Pulse Rate [ Right Dorsalis Pedis] Pulse Rate [ Right Radial] Respiratory 16 15 16 Rate Blood Pressure 204/82 185/80 192/79 O2 Sat by Pulse 96 96 97 Oximetry 06/01/21 06/01/21 06/01/21 06:00 06:15 06:30 Temperature Pulse Rate 83 83 83 Pulse Rate [ From Monitor] Pulse Rate [ Left Dorsalis Pedis] Pulse Rate [ Left Radial] Pulse Rate [ Right Dorsalis Pedis] Pulse Rate [ Right Radial] Respiratory 17 18 16 Rate Blood Pressure 188/84 184/82 192/82 O2 Sat by Pulse 97 97 97 Oximetry 06/01/21 06/01/21 06/01/21 06:45 07:00 07:15 Temperature 97 F L Pulse Rate 73 75 78 Pulse Rate [ From Monitor] Pulse Rate [ Left Dorsalis Pedis] Pulse Rate [ Left Radial] Pulse Rate [ Right Dorsalis Pedis] Pulse Rate [ Right Radial] Respiratory 13 15 15 Rate Blood Pressure 154/68 178/81 202/81 O2 Sat by Pulse 97 97 97 Oximetry 06/01/21 06/01/21 06/01/21 07:30 07:45 08:00 Temperature Pulse Rate 74 72 79 Pulse Rate [ 79 From Monitor] Pulse Rate [ Left Dorsalis Pedis] Pulse Rate [ Left Radial] Pulse Rate [ Right Dorsalis Pedis] Pulse Rate [ Right Radial] Respiratory 15 15 16 Rate Blood Pressure 170/75 162/77 170/70 O2 Sat by Pulse 97 98 93 Oximetry 06/01/21 06/01/21 06/01/21 08:15 08:30 08:45 Temperature Pulse Rate 78 76 84 Pulse Rate [ From Monitor] Pulse Rate [ Left Dorsalis Pedis] Pulse Rate [ Left Radial] Pulse Rate [ Right Dorsalis Pedis] Pulse Rate [ Right Radial] Respiratory 15 14 20 Rate Blood Pressure 177/81 166/71 196/85 O2 Sat by Pulse 98 98 98 Oximetry 06/01/21 06/01/21 06/01/21 09:00 09:15 09:30 Temperature Pulse Rate 79 78 80 Pulse Rate [ From Monitor] Pulse Rate [ Left Dorsalis Pedis] Pulse Rate [ Left Radial] Pulse Rate [ Right Dorsalis Pedis] Pulse Rate [ Right Radial] Respiratory 17 17 19 Rate Blood Pressure 182/72 188/81 179/80 O2 Sat by Pulse 99 100 98 Oximetry 06/01/21 06/01/21 06/01/21 09:45 10:00 10:15 Temperature Pulse Rate 78 80 80 Pulse Rate [ From Monitor] Pulse Rate [ Left Dorsalis Pedis] Pulse Rate [ Left Radial] Pulse Rate [ Right Dorsalis Pedis] Pulse Rate [ Right Radial] Respiratory 19 16 15 Rate Blood Pressure 175/80 186/77 181/73 O2 Sat by Pulse 98 100 100 Oximetry 06/01/21 06/01/21 06/01/21 10:23 10:30 10:45 Temperature Pulse Rate 79 80 76 Pulse Rate [ From Monitor] Pulse Rate [ Left Dorsalis Pedis] Pulse Rate [ Left Radial] Pulse Rate [ Right Dorsalis Pedis] Pulse Rate [ Right Radial] Respiratory 18 17 Rate Blood Pressure 181/73 184/78 184/81 O2 Sat by Pulse 100 99 Oximetry 06/01/21 06/01/21 11:00 11:54 Temperature 97.9 F Pulse Rate 71 Pulse Rate [ From Monitor] Pulse Rate [ Left Dorsalis Pedis] Pulse Rate [ Left Radial] Pulse Rate [ Right Dorsalis Pedis] Pulse Rate [ Right Radial] Respiratory 13 Rate Blood Pressure 174/77 O2 Sat by Pulse 98 Oximetry - General Apperance Constitutional: comfortable - EENT EENT: PERRL, mucous membranes moist - Respiratory Respiratory: lungs clear, rhonchi - Cardiovascular Cardiovascular: other (AF) Extremities: no peripheral edema bilat, no clubbing, cyanosis - Gastrointestinal Gastrointestinal: normoactive bowel sounds - Integumentary Integumentary: normal - Neurologic Cranial nerve examination: PERRL, EOMI, intact Speech examination: other (intubated off sedation) Detailed motor examination: other (no movment to stimuli) - Laboratory Findings CBC and BMP: 06/01/21 04:58 06/01/21 04:58 Abnormal Lab Findings: Abnormal Labs 05/25/21 05/25/21 05/25/21 09:07 09:21 09:21 WBC 17.1 H RBC Hgb Hct MCV 106 H MCH 33 H RDW 15.6 H Dawson # (Auto) Seg Neutrophils % Seg Neuts % (Manual) Lymphocytes % (Manual) Monocytes % (Manual) Seg Neutrophils # Seg Neutrophils # Man 10.1 H Lymphocytes # (Manual) 5.6 H Monocytes # (Manual) PT 15.0 H APTT 44.3 H D-Dimer > 56601 H Heparin Anti-Xa Level ABG pH 7.116 L POC ABG pCO2 POC ABG pO2 ABG pO2 ABG Hemoglobin ABG Oxyhemoglobin 93.7 L ABG Sodium ABG Potassium ABG Chloride ABG Glucose 395 H Carboxyhemoglobin Sodium Potassium Chloride Carbon Dioxide BUN Creatinine Glucose POC Glucose Lactic Acid Calcium Ferritin AST ALT Lactate Dehydrogenase Troponin T Total Protein Albumin HDL Cholesterol Arterial Blood Glucose 395 H Arterial Blood Ionized Calcium 4.4 L Urine WBC (Auto) 05/25/21 05/25/21 05/25/21 09:21 09:21 09:21 WBC RBC Hgb Hct MCV MCH RDW [place] # (Auto) Seg Neutrophils % Seg Neuts % (Manual) Lymphocytes % (Manual) Monocytes % (Manual) Seg Neutrophils # Seg Neutrophils # Man Lymphocytes # (Manual) Monocytes # (Manual) PT APTT D-Dimer Heparin Anti-Xa Level ABG pH POC ABG pCO2 POC ABG pO2 ABG pO2 ABG Hemoglobin ABG Oxyhemoglobin ABG Sodium ABG Potassium ABG Chloride ABG Glucose Carboxyhemoglobin Sodium Potassium Chloride Carbon Dioxide 10 L BUN Creatinine Glucose 423 H 424 H POC Glucose Lactic Acid Calcium 8.2 L Ferritin 321.6 H AST 162 H ALT 119 H Lactate Dehydrogenase 445 H Troponin T Total Protein 5.6 L Albumin 3.2 L HDL Cholesterol Arterial Blood Glucose Arterial Blood Ionized Calcium Urine WBC (Auto) 05/25/21 05/25/21 05/25/21 09:35 10:42 11:12 WBC RBC Hgb Hct MCV MCH RDW [place] # (Auto) Seg Neutrophils % Seg Neuts % (Manual) Lymphocytes % (Manual) Monocytes % (Manual) Seg Neutrophils # Seg Neutrophils # Man Lymphocytes # (Manual) Monocytes # (Manual) PT APTT D-Dimer Heparin Anti-Xa Level ABG pH POC ABG pCO2 POC ABG pO2 ABG pO2 ABG Hemoglobin ABG Oxyhemoglobin ABG Sodium ABG Potassium ABG Chloride ABG Glucose Carboxyhemoglobin Sodium Potassium Chloride Carbon Dioxide BUN Creatinine Glucose POC Glucose Lactic Acid 16.70 H* 7.70 H* Calcium Ferritin AST ALT Lactate Dehydrogenase Troponin T Total Protein Albumin HDL Cholesterol Arterial Blood Glucose Arterial Blood Ionized Calcium Urine WBC (Auto) 11.0 H 05/25/21 05/25/21 05/25/21 14:07 15:19 19:04 WBC RBC Hgb Hct MCV MCH RDW [place] # (Auto) Seg Neutrophils % Seg Neuts % (Manual) Lymphocytes % (Manual) Monocytes % (Manual) Seg Neutrophils # Seg Neutrophils # Man Lymphocytes # (Manual) Monocytes # (Manual) PT APTT D-Dimer Heparin Anti-Xa Level ABG pH POC ABG pCO2 POC ABG pO2 172.2 H ABG pO2 ABG Hemoglobin ABG Oxyhemoglobin 98.7 H ABG Sodium 135.7 L ABG Potassium ABG Chloride ABG Glucose 255 H Carboxyhemoglobin 0.3 L Sodium Potassium Chloride Carbon Dioxide BUN Creatinine Glucose POC Glucose Lactic Acid 3.90 H* Calcium Ferritin AST ALT Lactate Dehydrogenase Troponin T 0.226 H* D Total Protein Albumin HDL Cholesterol 64 H Arterial Blood Glucose 255 H Arterial Blood Ionized Calcium 3.8 L Urine WBC (Auto) 05/25/21 05/25/21 05/26/21 21:16 21:16 04:00 WBC RBC Hgb Hct MCV MCH RDW [place] # (Auto) Seg Neutrophils % Seg Neuts % (Manual) Lymphocytes % (Manual) Monocytes % (Manual) Seg Neutrophils # Seg Neutrophils # Man Lymphocytes # (Manual) Monocytes # (Manual) PT APTT D-Dimer Heparin Anti-Xa Level 1.19 H ABG pH 7.547 H POC ABG pCO2 POC ABG pO2 ABG pO2 ABG Hemoglobin 11.9 L ABG Oxyhemoglobin ABG Sodium 133.2 L ABG Potassium 3.1 L ABG Chloride ABG Glucose 243 H Carboxyhemoglobin 0.3 L Sodium Potassium Chloride Carbon Dioxide BUN Creatinine Glucose POC Glucose Lactic Acid 2.50 H* Calcium Ferritin AST ALT Lactate Dehydrogenase Troponin T Total Protein Albumin HDL Cholesterol Arterial Blood Glucose 243 H Arterial Blood Ionized Calcium Urine WBC (Auto) 05/26/21 05/26/21 05/26/21 05:49 05:49 17:33 WBC RBC Hgb Hct MCV MCH RDW [place] # (Auto) Seg Neutrophils % Seg Neuts % (Manual) Lymphocytes % (Manual) Monocytes % (Manual) Seg Neutrophils # Seg Neutrophils # Man Lymphocytes # (Manual) Monocytes # (Manual) PT APTT D-Dimer Heparin Anti-Xa Level ABG pH POC ABG pCO2 POC ABG pO2 ABG pO2 ABG Hemoglobin ABG Oxyhemoglobin ABG Sodium ABG Potassium ABG Chloride ABG Glucose Carboxyhemoglobin Sodium Potassium Chloride Carbon Dioxide BUN Creatinine Glucose 226 H POC Glucose 156 H Lactic Acid 2.30 H* Calcium 7.2 L Ferritin AST 111 H ALT 97 H Lactate Dehydrogenase Troponin T Total Protein 5.4 L Albumin 3.3 L HDL Cholesterol Arterial Blood Glucose Arterial Blood Ionized Calcium Urine WBC (Auto) 05/27/21 05/27/21 05/27/21 02:11 02:11 02:11 WBC 14.3 H RBC 3.27 L Hgb Hct MCV 99 H MCH 33 H RDW 15.3 H Dawson # (Auto) 1.0 H Seg Neutrophils % Seg Neuts % (Manual) Lymphocytes % (Manual) Monocytes % (Manual) Seg Neutrophils # 10.0 H Seg Neutrophils # Man Lymphocytes # (Manual) Monocytes # (Manual) PT APTT D-Dimer Heparin Anti-Xa Level 0.80 H ABG pH POC ABG pCO2 POC ABG pO2 ABG pO2 ABG Hemoglobin ABG Oxyhemoglobin ABG Sodium ABG Potassium ABG Chloride ABG Glucose Carboxyhemoglobin Sodium Potassium 2.9 L* D Chloride Carbon Dioxide 31 H BUN 6 L Creatinine Glucose 215 H POC Glucose Lactic Acid Calcium 8.1 L Ferritin AST ALT Lactate Dehydrogenase Troponin T Total Protein Albumin HDL Cholesterol Arterial Blood Glucose Arterial Blood Ionized Calcium Urine WBC (Auto) 05/27/21 05/27/21 05/27/21 11:24 12:49 18:06 WBC RBC Hgb Hct MCV MCH RDW [place] # (Auto) Seg Neutrophils % Seg Neuts % (Manual) Lymphocytes % (Manual) Monocytes % (Manual) Seg Neutrophils # Seg Neutrophils # Man Lymphocytes # (Manual) Monocytes # (Manual) PT APTT D-Dimer Heparin Anti-Xa Level ABG pH POC ABG pCO2 POC ABG pO2 ABG pO2 ABG Hemoglobin ABG Oxyhemoglobin ABG Sodium ABG Potassium ABG Chloride ABG Glucose Carboxyhemoglobin Sodium Potassium Chloride Carbon Dioxide BUN Creatinine Glucose POC Glucose 151 H 165 H 137 H Lactic Acid Calcium Ferritin AST ALT Lactate Dehydrogenase Troponin T Total Protein Albumin HDL Cholesterol Arterial Blood Glucose Arterial Blood Ionized Calcium Urine WBC (Auto) 05/28/21 05/28/21 05/28/21 04:00 04:00 06:02 WBC 13.5 H RBC 3.05 L Hgb Hct MCV 100 H MCH 34 H RDW [place] # (Auto) 0.9 H Seg Neutrophils % 78.2 H Seg Neuts % (Manual) Lymphocytes % (Manual) Monocytes % (Manual) Seg Neutrophils # 10.6 H Seg Neutrophils # Man Lymphocytes # (Manual) Monocytes # (Manual) PT APTT D-Dimer Heparin Anti-Xa Level ABG pH 7.507 H POC ABG pCO2 POC ABG pO2 ABG pO2 ABG Hemoglobin 10.6 L ABG Oxyhemoglobin ABG Sodium 129.4 L ABG Potassium ABG Chloride ABG Glucose 243 H Carboxyhemoglobin 0.2 L Sodium 136 L D Potassium Chloride Carbon Dioxide BUN Creatinine Glucose 215 H POC Glucose Lactic Acid Calcium Ferritin AST ALT Lactate Dehydrogenase Troponin T Total Protein Albumin HDL Cholesterol Arterial Blood Glucose 243 H Arterial Blood Ionized Calcium 4.1 L Urine WBC (Auto) 05/28/21 05/28/21 05/29/21 11:27 23:02 04:30 WBC RBC Hgb 9.3 L Hct 26.7 L MCV MCH RDW [place] # (Auto) Seg Neutrophils % Seg Neuts % (Manual) Lymphocytes % (Manual) Monocytes % (Manual) Seg Neutrophils # Seg Neutrophils # Man Lymphocytes # (Manual) Monocytes # (Manual) PT APTT D-Dimer Heparin Anti-Xa Level ABG pH POC ABG pCO2 POC ABG pO2 ABG pO2 ABG Hemoglobin ABG Oxyhemoglobin ABG Sodium ABG Potassium ABG Chloride ABG Glucose Carboxyhemoglobin Sodium Potassium Chloride Carbon Dioxide BUN Creatinine Glucose POC Glucose 220 H 212 H Lactic Acid Calcium Ferritin AST ALT Lactate Dehydrogenase Troponin T Total Protein Albumin HDL Cholesterol Arterial Blood Glucose Arterial Blood Ionized Calcium Urine WBC (Auto) 05/29/21 05/29/21 05/29/21 05:02 05:28 12:55 WBC RBC Hgb Hct MCV MCH RDW [place] # (Auto) Seg Neutrophils % Seg Neuts % (Manual) Lymphocytes % (Manual) Monocytes % (Manual) Seg Neutrophils # Seg Neutrophils # Man Lymphocytes # (Manual) Monocytes # (Manual) PT APTT D-Dimer Heparin Anti-Xa Level ABG pH 7.516 H POC ABG pCO2 POC ABG pO2 ABG pO2 96.2 H ABG Hemoglobin 7.5 L ABG Oxyhemoglobin ABG Sodium ABG Potassium ABG Chloride ABG Glucose Carboxyhemoglobin Sodium Potassium Chloride Carbon Dioxide BUN Creatinine Glucose POC Glucose 197 H 251 H Lactic Acid Calcium Ferritin AST ALT Lactate Dehydrogenase Troponin T Total Protein Albumin HDL Cholesterol Arterial Blood Glucose Arterial Blood Ionized Calcium Urine WBC (Auto) 05/29/21 05/29/21 05/30/21 18:23 23:31 04:10 WBC RBC Hgb Hct MCV MCH RDW [place] # (Auto) Seg Neutrophils % Seg Neuts % (Manual) Lymphocytes % (Manual) Monocytes % (Manual) Seg Neutrophils # Seg Neutrophils # Man Lymphocytes # (Manual) Monocytes # (Manual) PT APTT D-Dimer Heparin Anti-Xa Level ABG pH 7.532 H POC ABG pCO2 30.0 L POC ABG pO2 78.5 L ABG pO2 ABG Hemoglobin 11.3 L ABG Oxyhemoglobin ABG Sodium 126.7 L ABG Potassium ABG Chloride 94.0 L ABG Glucose 270 H Carboxyhemoglobin 0.4 L Sodium Potassium Chloride Carbon Dioxide BUN Creatinine Glucose POC Glucose 236 H 252 H Lactic Acid Calcium Ferritin AST ALT Lactate Dehydrogenase Troponin T Total Protein Albumin HDL Cholesterol Arterial Blood Glucose 270 H Arterial Blood Ionized Calcium 4.4 L Urine WBC (Auto) 05/30/21 05/30/21 05/30/21 05:06 06:23 11:15 WBC RBC Hgb Hct MCV MCH RDW [place] # (Auto) Seg Neutrophils % Seg Neuts % (Manual) Lymphocytes % (Manual) Monocytes % (Manual) Seg Neutrophils # Seg Neutrophils # Man Lymphocytes # (Manual) Monocytes # (Manual) PT APTT D-Dimer Heparin Anti-Xa Level ABG pH POC ABG pCO2 POC ABG pO2 ABG pO2 ABG Hemoglobin ABG Oxyhemoglobin ABG Sodium ABG Potassium ABG Chloride ABG Glucose Carboxyhemoglobin Sodium 126 L D Potassium Chloride 91.9 L Carbon Dioxide 20 L D BUN Creatinine 0.4 L Glucose 274 H POC Glucose 242 H 346 H Lactic Acid Calcium Ferritin AST ALT Lactate Dehydrogenase Troponin T Total Protein Albumin HDL Cholesterol Arterial Blood Glucose Arterial Blood Ionized Calcium Urine WBC (Auto) 0905/30/21 05/30/21 11:19 11:19 11:19 WBC 18.9 H RBC 3.36 L Hgb Hct MCV 102 H MCH 33 H RDW 15.5 H Dawson # (Auto) Seg Neutrophils % Seg Neuts % (Manual) Lymphocytes % (Manual) Monocytes % (Manual) Seg Neutrophils # Seg Neutrophils # Man Lymphocytes # (Manual) Monocytes # (Manual) PT APTT D-Dimer Heparin Anti-Xa Level < 0.10 L ABG pH POC ABG pCO2 POC ABG pO2 ABG pO2 ABG Hemoglobin ABG Oxyhemoglobin ABG Sodium ABG Potassium ABG Chloride ABG Glucose Carboxyhemoglobin Sodium 124 L Potassium Chloride Carbon Dioxide BUN Creatinine Glucose POC Glucose Lactic Acid Calcium Ferritin AST ALT Lactate Dehydrogenase Troponin T Total Protein Albumin HDL Cholesterol Arterial Blood Glucose Arterial Blood Ionized Calcium Urine WBC (Auto) 05/30/21 05/30/21 05/31/21 17:02 23:27 03:37 WBC RBC Hgb Hct MCV MCH RDW [place] # (Auto) Seg Neutrophils % Seg Neuts % (Manual) Lymphocytes % (Manual) Monocytes % (Manual) Seg Neutrophils # Seg Neutrophils # Man Lymphocytes # (Manual) Monocytes # (Manual) PT APTT D-Dimer Heparin Anti-Xa Level ABG pH POC ABG pCO2 POC ABG pO2 ABG pO2 ABG Hemoglobin 11.6 L ABG Oxyhemoglobin ABG Sodium 130.0 L ABG Potassium ABG Chloride 95.0 L ABG Glucose 292 H Carboxyhemoglobin Sodium Potassium Chloride Carbon Dioxide BUN Creatinine Glucose POC Glucose 270 H 237 H Lactic Acid Calcium Ferritin AST ALT Lactate Dehydrogenase Troponin T Total Protein Albumin HDL Cholesterol Arterial Blood Glucose 292 H Arterial Blood Ionized Calcium Urine WBC (Auto) 05/31/21 05/31/21 05/31/21 04:00 04:00 05:20 WBC 20.9 H RBC 3.13 L Hgb Hct MCV 99 H MCH 34 H RDW [place] # (Auto) Seg Neutrophils % Seg Neuts % (Manual) 81.0 H Lymphocytes % (Manual) 8.0 L Monocytes % (Manual) 9.0 H Seg Neutrophils # Seg Neutrophils # Man 16.9 H Lymphocytes # (Manual) Monocytes # (Manual) 1.9 H PT APTT D-Dimer Heparin Anti-Xa Level ABG pH POC ABG pCO2 POC ABG pO2 ABG pO2 ABG Hemoglobin ABG Oxyhemoglobin ABG Sodium ABG Potassium ABG Chloride ABG Glucose Carboxyhemoglobin Sodium 133 L D Potassium Chloride 95.4 L Carbon Dioxide 21 L BUN 30 H Creatinine 0.5 L Glucose 305 H POC Glucose 269 H Lactic Acid Calcium Ferritin AST ALT Lactate Dehydrogenase Troponin T Total Protein Albumin HDL Cholesterol Arterial Blood Glucose Arterial Blood Ionized Calcium Urine WBC (Auto) 05/31/21 05/31/21 05/31/21 11:40 18:16 23:25 WBC RBC Hgb Hct MCV MCH RDW [place] # (Auto) Seg Neutrophils % Seg Neuts % (Manual) Lymphocytes % (Manual) Monocytes % (Manual) Seg Neutrophils # Seg Neutrophils # Man Lymphocytes # (Manual) Monocytes # (Manual) PT APTT D-Dimer Heparin Anti-Xa Level ABG pH POC ABG pCO2 POC ABG pO2 ABG pO2 ABG Hemoglobin ABG Oxyhemoglobin ABG Sodium ABG Potassium ABG Chloride ABG Glucose Carboxyhemoglobin Sodium Potassium Chloride Carbon Dioxide BUN Creatinine Glucose POC Glucose 364 H 250 H 231 H Lactic Acid Calcium Ferritin AST ALT Lactate Dehydrogenase Troponin T Total Protein Albumin HDL Cholesterol Arterial Blood Glucose Arterial Blood Ionized Calcium Urine WBC (Auto) 06/01/21 06/01/21 06/01/21 04:03 04:58 04:58 WBC 20.7 H RBC 3.20 L Hgb Hct MCV 99 H MCH 34 H RDW [place] # (Auto) Seg Neutrophils % Seg Neuts % (Manual) 82.0 H Lymphocytes % (Manual) 9.0 L Monocytes % (Manual) Seg Neutrophils # Seg Neutrophils # Man 17.0 H Lymphocytes # (Manual) Monocytes # (Manual) 1.4 H PT APTT D-Dimer Heparin Anti-Xa Level 1.18 H ABG pH 7.520 H POC ABG pCO2 POC ABG pO2 66.0 L ABG pO2 ABG Hemoglobin ABG Oxyhemoglobin 92.5 L ABG Sodium 133.6 L ABG Potassium ABG Chloride ABG Glucose 250 H Carboxyhemoglobin Sodium Potassium Chloride Carbon Dioxide BUN Creatinine Glucose POC Glucose Lactic Acid Calcium Ferritin AST ALT Lactate Dehydrogenase Troponin T Total Protein Albumin HDL Cholesterol Arterial Blood Glucose 250 H Arterial Blood Ionized Calcium 4.4 L Urine WBC (Auto) 06/01/21 06/01/21 06/01/21 04:58 05:29 11:39 WBC RBC Hgb Hct MCV MCH RDW [place] # (Auto) Seg Neutrophils % Seg Neuts % (Manual) Lymphocytes % (Manual) Monocytes % (Manual) Seg Neutrophils # Seg Neutrophils # Man Lymphocytes # (Manual) Monocytes # (Manual) PT APTT D-Dimer Heparin Anti-Xa Level ABG pH POC ABG pCO2 POC ABG pO2 ABG pO2 ABG Hemoglobin ABG Oxyhemoglobin ABG Sodium ABG Potassium ABG Chloride ABG Glucose Carboxyhemoglobin Sodium 131 L Potassium Chloride 95.7 L Carbon Dioxide BUN 30 H Creatinine 0.5 L Glucose 241 H POC Glucose 215 H 299 H Lactic Acid Calcium Ferritin AST ALT Lactate Dehydrogenase Troponin T Total Protein Albumin HDL Cholesterol Arterial Blood Glucose Arterial Blood Ionized Calcium Urine WBC (Auto)
--- NOTE | 2021-06-01 13:24 | Progress Note ---
Assessment and Plan Acute hypoxemic respiratory failure on MVS Cardiopulmonary arrest wtih ROSC Seizure disorder Sepsis Toxic metabolic encephalopathy, possible anoxia Atrial fibrillation with RVR Metabolic acidosis Bilateral lower lobe infiltrates - Hydralazine and Nifedipine added for better BP control - neurology evaluation ongoing; for MRI with contrast - will likely need trach for safe liberation from MVS except there is significant improvement in mental status - continue scopolamine for secretion control - Lantus increased for better glycemic control - continue Keppra as AED - continue care as below otherwise; - daily SAT and SBT assessment as tolerated - continue to wean supplemental oxygen for target O2 sat's > 90% acutely - VAP bundle addressed - continue lung protective strategies - continue bronchodilators with pulmonary hygiene per RT - wean per pulmonary driven protocols otherwise - continue accuchecks with glycemic control per SSI (While critically ill target blood glucose of 140-180 mg/dL; avoid hypoglycemia) - sedation prn for target RASS 0 to -1 - avoid nephrotoxins, renally dose all medications - continue to avoid benzodiazepine's, reduce the possibility of delirium - AB's per ID rec's - prn analgesia per CPOT score - Maintenance of sleep-wake cycle, avoid delirium - continue enteral nutritional support at goal rate as tolerated - G.I. & VTE prophylaxis - PT/OT/ROM exercises - continue mobility protocols for pressure ulcer prophylaxis - Monitor hemodynamics closely - continue other care per attending / other consultants - discharge planning ongoing concurrently COVID SPECIFIC INTERVENTIONS - COVID-19 PCR negative .... Re-evaluate in am & prn CONDITION: CRITICAL PROGNOSIS: GUARDED CODE STATUS: FULL CODE The high probability of a clinically significant, sudden or life-threatening deterioration of the [respiratory, cardiovascular & neurologic] system(s) required my full and direct attention, intervention and personal management. The aggregate critical care time was [36] minutes without overlap. Time includes spent on; [x] Data Review and interpretation [x] Patient assessment and monitoring of vital signs [x] Documentation [x] Medication orders and management Subjective Date of service: 06/01/21 Principal diagnosis: Ac hypoxemic resp failure; Cardiac arrest; Seizures; Sepsis; AMS; A-Fib RVR Interval history: Patient is seen today for: Acute hypoxemic respiratory failure; Cardiac arrest wtih ROSC; Seizure disorder; Sepsis; AMS; A-Fib with RVR Seen and examined at bedside; 24hour events reviewed; nursing and respiratory care staff consulted; no adverse overnight events reported to me; resting in bed; remains on MVS; AMS is persistent; BP's on high side; noemesis or overt aspiration Objective Vital Signs - 12hr 06/01/21 06/01/21 06/01/21 01:30 01:45 02:00 Temperature Pulse Rate 84 82 80 Pulse Rate [ From Monitor] Pulse Rate [ Left Dorsalis Pedis] Pulse Rate [ Left Radial] Pulse Rate [ Right Dorsalis Pedis] Pulse Rate [ Right Radial] Respiratory 17 16 14 Rate Blood Pressure 179/77 179/76 168/79 O2 Sat by Pulse 93 94 94 Oximetry 06/01/21 06/01/21 06/01/21 02:15 02:30 02:45 Temperature Pulse Rate 80 78 80 Pulse Rate [ From Monitor] Pulse Rate [ Left Dorsalis Pedis] Pulse Rate [ Left Radial] Pulse Rate [ Right Dorsalis Pedis] Pulse Rate [ Right Radial] Respiratory 14 14 17 Rate Blood Pressure 170/80 164/80 167/80 O2 Sat by Pulse 94 95 95 Oximetry 06/01/21 06/01/21 06/01/21 03:00 03:15 03:22 Temperature 97.7 F Pulse Rate 76 80 Pulse Rate [ From Monitor] Pulse Rate [ Left Dorsalis Pedis] Pulse Rate [ Left Radial] Pulse Rate [ Right Dorsalis Pedis] Pulse Rate [ Right Radial] Respiratory 15 21 Rate Blood Pressure 165/79 181/85 O2 Sat by Pulse 95 96 Oximetry 06/01/21 06/01/21 06/01/21 03:30 03:45 03:56 Temperature Pulse Rate 78 79 78 Pulse Rate [ From Monitor] Pulse Rate [ Left Dorsalis Pedis] Pulse Rate [ Left Radial] Pulse Rate [ Right Dorsalis Pedis] Pulse Rate [ Right Radial] Respiratory 15 15 Rate Blood Pressure 168/75 178/81 178/81 O2 Sat by Pulse 95 96 95 Oximetry 06/01/21 06/01/21 06/01/21 04:00 04:15 04:30 Temperature Pulse Rate 83 80 81 Pulse Rate [ 78 From Monitor] Pulse Rate [ 78 Left Dorsalis Pedis] Pulse Rate [ 78 Left Radial] Pulse Rate [ 78 Right Dorsalis Pedis] Pulse Rate [ 78 Right Radial] Respiratory 17 20 16 Rate Blood Pressure 181/87 182/87 181/84 O2 Sat by Pulse 96 96 96 Oximetry 06/01/21 06/01/21 06/01/21 04:45 05:00 05:15 Temperature Pulse Rate 78 82 87 Pulse Rate [ From Monitor] Pulse Rate [ Left Dorsalis Pedis] Pulse Rate [ Left Radial] Pulse Rate [ Right Dorsalis Pedis] Pulse Rate [ Right Radial] Respiratory 14 15 16 Rate Blood Pressure 168/76 180/83 204/82 O2 Sat by Pulse 96 95 96 Oximetry 06/01/21 06/01/21 06/01/21 05:30 05:45 06:00 Temperature Pulse Rate 83 83 83 Pulse Rate [ From Monitor] Pulse Rate [ Left Dorsalis Pedis] Pulse Rate [ Left Radial] Pulse Rate [ Right Dorsalis Pedis] Pulse Rate [ Right Radial] Respiratory 15 16 17 Rate Blood Pressure 185/80 192/79 188/84 O2 Sat by Pulse 96 97 97 Oximetry 06/01/21 06/01/21 06/01/21 06:15 06:30 06:45 Temperature Pulse Rate 83 83 73 Pulse Rate [ From Monitor] Pulse Rate [ Left Dorsalis Pedis] Pulse Rate [ Left Radial] Pulse Rate [ Right Dorsalis Pedis] Pulse Rate [ Right Radial] Respiratory 18 16 13 Rate Blood Pressure 184/82 192/82 154/68 O2 Sat by Pulse 97 97 97 Oximetry 06/01/21 06/01/21 06/01/21 07:00 07:15 07:30 Temperature 97 F L Pulse Rate 75 78 74 Pulse Rate [ From Monitor] Pulse Rate [ Left Dorsalis Pedis] Pulse Rate [ Left Radial] Pulse Rate [ Right Dorsalis Pedis] Pulse Rate [ Right Radial] Respiratory 15 15 15 Rate Blood Pressure 178/81 202/81 170/75 O2 Sat by Pulse 97 97 97 Oximetry 06/01/21 06/01/21 06/01/21 07:45 08:00 08:15 Temperature Pulse Rate 72 79 78 Pulse Rate [ 79 From Monitor] Pulse Rate [ Left Dorsalis Pedis] Pulse Rate [ Left Radial] Pulse Rate [ Right Dorsalis Pedis] Pulse Rate [ Right Radial] Respiratory 15 16 15 Rate Blood Pressure 162/77 170/70 177/81 O2 Sat by Pulse 98 93 98 Oximetry 06/01/21 06/01/21 06/01/21 08:30 08:45 09:00 Temperature Pulse Rate 76 84 79 Pulse Rate [ From Monitor] Pulse Rate [ Left Dorsalis Pedis] Pulse Rate [ Left Radial] Pulse Rate [ Right Dorsalis Pedis] Pulse Rate [ Right Radial] Respiratory 14 20 17 Rate Blood Pressure 166/71 196/85 182/72 O2 Sat by Pulse 98 98 99 Oximetry 06/01/21 06/01/21 06/01/21 09:15 09:30 09:45 Temperature Pulse Rate 78 80 78 Pulse Rate [ From Monitor] Pulse Rate [ Left Dorsalis Pedis] Pulse Rate [ Left Radial] Pulse Rate [ Right Dorsalis Pedis] Pulse Rate [ Right Radial] Respiratory 17 19 19 Rate Blood Pressure 188/81 179/80 175/80 O2 Sat by Pulse 100 98 98 Oximetry 06/01/21 06/01/21 06/01/21 10:00 10:15 10:23 Temperature Pulse Rate 80 80 79 Pulse Rate [ From Monitor] Pulse Rate [ Left Dorsalis Pedis] Pulse Rate [ Left Radial] Pulse Rate [ Right Dorsalis Pedis] Pulse Rate [ Right Radial] Respiratory 16 15 Rate Blood Pressure 186/77 181/73 181/73 O2 Sat by Pulse 100 100 Oximetry 06/01/21 06/01/21 06/01/21 10:30 10:45 11:00 Temperature Pulse Rate 80 76 71 Pulse Rate [ From Monitor] Pulse Rate [ Left Dorsalis Pedis] Pulse Rate [ Left Radial] Pulse Rate [ Right Dorsalis Pedis] Pulse Rate [ Right Radial] Respiratory 18 17 13 Rate Blood Pressure 184/78 184/81 174/77 O2 Sat by Pulse 100 99 98 Oximetry 06/01/21 11:54 Temperature 97.9 F Pulse Rate Pulse Rate [ From Monitor] Pulse Rate [ Left Dorsalis Pedis] Pulse Rate [ Left Radial] Pulse Rate [ Right Dorsalis Pedis] Pulse Rate [ Right Radial] Respiratory Rate Blood Pressure O2 Sat by Pulse Oximetry Constitutional: no acute distress, other (elderly female with mildly increased respiratory effort at rest on MVS) Eyes: non-icteric ENT: oropharynx moist, oropharyngeal exudate pre (clear), other (ETT at 23cm [place]AP[place]) Neck: supple, no lymphadenopathy Effort: mildly labored Ascultation: Bilateral: diminished breath sounds, rhonchi Percussion: Bilateral: not dull Cardiovascular: irregular rhythm, other (S1,S2) Gastrointestinal: normoactive bowel sounds Integumentary: normal Extremities: no cyanosis, pink and warm, pulses normal, other (Right femoral CVL) Neurologic: pupils equal and round, other (encephalopathic; sedated) Psychiatric: other (unable to assess) CBC and BMP: 06/01/21 04:58 06/01/21 04:58 ABG, PT/INR, D-dimer: ABG ABG pH 7.520 (7.320-7.450) H 06/01/21 04:03 POC ABG pCO2 34.5 mmHg (32.0-48.0) 06/01/21 04:03 ABG pCO2 30.3 mm Hg 05/29/21 05:28 POC ABG pO2 66.0 mmHg (83-108) L 06/01/21 04:03 ABG pO2 96.2 mm Hg (80.0-90.0) H 05/29/21 05:28 POC ABG HCO3 27.5 06/01/21 04:03 ABG O2 Saturation 93.4 (0-100) 06/01/21 04:03 PT/INR, D-dimer PT 15.0 Sec. (12.2-14.9) H 05/25/21 09:21 INR 1.13 (0.87-1.13) 05/25/21 09:21 D-Dimer > 39321 ng/mlDDU (0-234) H 05/25/21 09:21 Abnormal lab findings: Abnormal Labs 05/25/21 05/25/21 05/25/21 09:07 09:21 09:21 WBC 17.1 H RBC Hgb Hct MCV 106 H MCH 33 H RDW 15.6 H [place] # (Auto) Seg Neutrophils % Seg Neuts % (Manual) Lymphocytes % (Manual) Monocytes % (Manual) Seg Neutrophils # Seg Neutrophils # Man 10.1 H Lymphocytes # (Manual) 5.6 H Monocytes # (Manual) PT 15.0 H APTT 44.3 H D-Dimer > 04627 H Heparin Anti-Xa Level ABG pH 7.116 L POC ABG pCO2 POC ABG pO2 ABG pO2 ABG Hemoglobin ABG Oxyhemoglobin 93.7 L ABG Sodium ABG Potassium ABG Chloride ABG Glucose 395 H Carboxyhemoglobin Sodium Potassium Chloride Carbon Dioxide BUN Creatinine Glucose POC Glucose Lactic Acid Calcium Ferritin AST ALT Lactate Dehydrogenase Troponin T Total Protein Albumin HDL Cholesterol Arterial Blood Glucose 395 H Arterial Blood Ionized Calcium 4.4 L Urine WBC (Auto) 05/25/21 05/25/21 05/25/21 09:21 09:21 09:21 WBC RBC Hgb Hct MCV MCH RDW [place] # (Auto) Seg Neutrophils % Seg Neuts % (Manual) Lymphocytes % (Manual) Monocytes % (Manual) Seg Neutrophils # Seg Neutrophils # Man Lymphocytes # (Manual) Monocytes # (Manual) PT APTT D-Dimer Heparin Anti-Xa Level ABG pH POC ABG pCO2 POC ABG pO2 ABG pO2 ABG Hemoglobin ABG Oxyhemoglobin ABG Sodium ABG Potassium ABG Chloride ABG Glucose Carboxyhemoglobin Sodium Potassium Chloride Carbon Dioxide 10 L BUN Creatinine Glucose 423 H 424 H POC Glucose Lactic Acid Calcium 8.2 L Ferritin 321.6 H AST 162 H ALT 119 H Lactate Dehydrogenase 445 H Troponin T Total Protein 5.6 L Albumin 3.2 L HDL Cholesterol Arterial Blood Glucose Arterial Blood Ionized Calcium Urine WBC (Auto) 05/25/21 05/25/21 05/25/21 09:35 10:42 11:12 WBC RBC Hgb Hct MCV MCH RDW [place] # (Auto) Seg Neutrophils % Seg Neuts % (Manual) Lymphocytes % (Manual) Monocytes % (Manual) Seg Neutrophils # Seg Neutrophils # Man Lymphocytes # (Manual) Monocytes # (Manual) PT APTT D-Dimer Heparin Anti-Xa Level ABG pH POC ABG pCO2 POC ABG pO2 ABG pO2 ABG Hemoglobin ABG Oxyhemoglobin ABG Sodium ABG Potassium ABG Chloride ABG Glucose Carboxyhemoglobin Sodium Potassium Chloride Carbon Dioxide BUN Creatinine Glucose POC Glucose Lactic Acid 16.70 H* 7.70 H* Calcium Ferritin AST ALT Lactate Dehydrogenase Troponin T Total Protein Albumin HDL Cholesterol Arterial Blood Glucose Arterial Blood Ionized Calcium Urine WBC (Auto) 11.0 H 05/25/21 05/25/21 05/25/21 14:07 15:19 19:04 WBC RBC Hgb Hct MCV MCH RDW [place] # (Auto) Seg Neutrophils % Seg Neuts % (Manual) Lymphocytes % (Manual) Monocytes % (Manual) Seg Neutrophils # Seg Neutrophils # Man Lymphocytes # (Manual) Monocytes # (Manual) PT APTT D-Dimer Heparin Anti-Xa Level ABG pH POC ABG pCO2 POC ABG pO2 172.2 H ABG pO2 ABG Hemoglobin ABG Oxyhemoglobin 98.7 H ABG Sodium 135.7 L ABG Potassium ABG Chloride ABG Glucose 255 H Carboxyhemoglobin 0.3 L Sodium Potassium Chloride Carbon Dioxide BUN Creatinine Glucose POC Glucose Lactic Acid 3.90 H* Calcium Ferritin AST ALT Lactate Dehydrogenase Troponin T 0.226 H* D Total Protein Albumin HDL Cholesterol 64 H Arterial Blood Glucose 255 H Arterial Blood Ionized Calcium 3.8 L Urine WBC (Auto) 05/25/21 05/25/21 05/26/21 21:16 21:16 04:00 WBC RBC Hgb Hct MCV MCH RDW [place] # (Auto) Seg Neutrophils % Seg Neuts % (Manual) Lymphocytes % (Manual) Monocytes % (Manual) Seg Neutrophils # Seg Neutrophils # Man Lymphocytes # (Manual) Monocytes # (Manual) PT APTT D-Dimer Heparin Anti-Xa Level 1.19 H ABG pH 7.547 H POC ABG pCO2 POC ABG pO2 ABG pO2 ABG Hemoglobin 11.9 L ABG Oxyhemoglobin ABG Sodium 133.2 L ABG Potassium 3.1 L ABG Chloride ABG Glucose 243 H Carboxyhemoglobin 0.3 L Sodium Potassium Chloride Carbon Dioxide BUN Creatinine Glucose POC Glucose Lactic Acid 2.50 H* Calcium Ferritin AST ALT Lactate Dehydrogenase Troponin T Total Protein Albumin HDL Cholesterol Arterial Blood Glucose 243 H Arterial Blood Ionized Calcium Urine WBC (Auto) 05/26/21 05/26/21 05/26/21 05:49 05:49 17:33 WBC RBC Hgb Hct MCV MCH RDW [place] # (Auto) Seg Neutrophils % Seg Neuts % (Manual) Lymphocytes % (Manual) Monocytes % (Manual) Seg Neutrophils # Seg Neutrophils # Man Lymphocytes # (Manual) Monocytes # (Manual) PT APTT D-Dimer Heparin Anti-Xa Level ABG pH POC ABG pCO2 POC ABG pO2 ABG pO2 ABG Hemoglobin ABG Oxyhemoglobin ABG Sodium ABG Potassium ABG Chloride ABG Glucose Carboxyhemoglobin Sodium Potassium Chloride Carbon Dioxide BUN Creatinine Glucose 226 H POC Glucose 156 H Lactic Acid 2.30 H* Calcium 7.2 L Ferritin AST 111 H ALT 97 H Lactate Dehydrogenase Troponin T Total Protein 5.4 L Albumin 3.3 L HDL Cholesterol Arterial Blood Glucose Arterial Blood Ionized Calcium Urine WBC (Auto) 05/27/21 05/27/21 05/27/21 02:11 02:11 02:11 WBC 14.3 H RBC 3.27 L Hgb Hct MCV 99 H MCH 33 H RDW 15.3 H [place] # (Auto) 1.0 H Seg Neutrophils % Seg Neuts % (Manual) Lymphocytes % (Manual) Monocytes % (Manual) Seg Neutrophils # 10.0 H Seg Neutrophils # Man Lymphocytes # (Manual) Monocytes # (Manual) PT APTT D-Dimer Heparin Anti-Xa Level 0.80 H ABG pH POC ABG pCO2 POC ABG pO2 ABG pO2 ABG Hemoglobin ABG Oxyhemoglobin ABG Sodium ABG Potassium ABG Chloride ABG Glucose Carboxyhemoglobin Sodium Potassium 2.9 L* D Chloride Carbon Dioxide 31 H BUN 6 L Creatinine Glucose 215 H POC Glucose Lactic Acid Calcium 8.1 L Ferritin AST ALT Lactate Dehydrogenase Troponin T Total Protein Albumin HDL Cholesterol Arterial Blood Glucose Arterial Blood Ionized Calcium Urine WBC (Auto) 05/27/21 05/27/21 05/27/21 11:24 12:49 18:06 WBC RBC Hgb Hct MCV MCH RDW [place] # (Auto) Seg Neutrophils % Seg Neuts % (Manual) Lymphocytes % (Manual) Monocytes % (Manual) Seg Neutrophils # Seg Neutrophils # Man Lymphocytes # (Manual) Monocytes # (Manual) PT APTT D-Dimer Heparin Anti-Xa Level ABG pH POC ABG pCO2 POC ABG pO2 ABG pO2 ABG Hemoglobin ABG Oxyhemoglobin ABG Sodium ABG Potassium ABG Chloride ABG Glucose Carboxyhemoglobin Sodium Potassium Chloride Carbon Dioxide BUN Creatinine Glucose POC Glucose 151 H 165 H 137 H Lactic Acid Calcium Ferritin AST ALT Lactate Dehydrogenase Troponin T Total Protein Albumin HDL Cholesterol Arterial Blood Glucose Arterial Blood Ionized Calcium Urine WBC (Auto) 05/28/21 05/28/21 05/28/21 04:00 04:00 06:02 WBC 13.5 H RBC 3.05 L Hgb Hct MCV 100 H MCH 34 H RDW [place] # (Auto) 0.9 H Seg Neutrophils % 78.2 H Seg Neuts % (Manual) Lymphocytes % (Manual) Monocytes % (Manual) Seg Neutrophils # 10.6 H Seg Neutrophils # Man Lymphocytes # (Manual) Monocytes # (Manual) PT APTT D-Dimer Heparin Anti-Xa Level ABG pH 7.507 H POC ABG pCO2 POC ABG pO2 ABG pO2 ABG Hemoglobin 10.6 L ABG Oxyhemoglobin ABG Sodium 129.4 L ABG Potassium ABG Chloride ABG Glucose 243 H Carboxyhemoglobin 0.2 L Sodium 136 L D Potassium Chloride Carbon Dioxide BUN Creatinine Glucose 215 H POC Glucose Lactic Acid Calcium Ferritin AST ALT Lactate Dehydrogenase Troponin T Total Protein Albumin HDL Cholesterol Arterial Blood Glucose 243 H Arterial Blood Ionized Calcium 4.1 L Urine WBC (Auto) 05/28/21 05/28/21 05/29/21 11:27 23:02 04:30 WBC RBC Hgb 9.3 L Hct 26.7 L MCV MCH RDW [place] # (Auto) Seg Neutrophils % Seg Neuts % (Manual) Lymphocytes % (Manual) Monocytes % (Manual) Seg Neutrophils # Seg Neutrophils # Man Lymphocytes # (Manual) Monocytes # (Manual) PT APTT D-Dimer Heparin Anti-Xa Level ABG pH POC ABG pCO2 POC ABG pO2 ABG pO2 ABG Hemoglobin ABG Oxyhemoglobin ABG Sodium ABG Potassium ABG Chloride ABG Glucose Carboxyhemoglobin Sodium Potassium Chloride Carbon Dioxide BUN Creatinine Glucose POC Glucose 220 H 212 H Lactic Acid Calcium Ferritin AST ALT Lactate Dehydrogenase Troponin T Total Protein Albumin HDL Cholesterol Arterial Blood Glucose Arterial Blood Ionized Calcium Urine WBC (Auto) 05/29/21 05/29/21 05/29/21 05:02 05:28 12:55 WBC RBC Hgb Hct MCV MCH RDW [place] # (Auto) Seg Neutrophils % Seg Neuts % (Manual) Lymphocytes % (Manual) Monocytes % (Manual) Seg Neutrophils # Seg Neutrophils # Man Lymphocytes # (Manual) Monocytes # (Manual) PT APTT D-Dimer Heparin Anti-Xa Level ABG pH 7.516 H POC ABG pCO2 POC ABG pO2 ABG pO2 96.2 H ABG Hemoglobin 7.5 L ABG Oxyhemoglobin ABG Sodium ABG Potassium ABG Chloride ABG Glucose Carboxyhemoglobin Sodium Potassium Chloride Carbon Dioxide BUN Creatinine Glucose POC Glucose 197 H 251 H Lactic Acid Calcium Ferritin AST ALT Lactate Dehydrogenase Troponin T Total Protein Albumin HDL Cholesterol Arterial Blood Glucose Arterial Blood Ionized Calcium Urine WBC (Auto) 05/29/21 05/29/21 05/30/21 18:23 23:31 04:10 WBC RBC Hgb Hct MCV MCH RDW [place] # (Auto) Seg Neutrophils % Seg Neuts % (Manual) Lymphocytes % (Manual) Monocytes % (Manual) Seg Neutrophils # Seg Neutrophils # Man Lymphocytes # (Manual) Monocytes # (Manual) PT APTT D-Dimer Heparin Anti-Xa Level ABG pH 7.532 H POC ABG pCO2 30.0 L POC ABG pO2 78.5 L ABG pO2 ABG Hemoglobin 11.3 L ABG Oxyhemoglobin ABG Sodium 126.7 L ABG Potassium ABG Chloride 94.0 L ABG Glucose 270 H Carboxyhemoglobin 0.4 L Sodium Potassium Chloride Carbon Dioxide BUN Creatinine Glucose POC Glucose 236 H 252 H Lactic Acid Calcium Ferritin AST ALT Lactate Dehydrogenase Troponin T Total Protein Albumin HDL Cholesterol Arterial Blood Glucose 270 H Arterial Blood Ionized Calcium 4.4 L Urine WBC (Auto) 05/30/21 05/30/21 05/30/21 05:06 06:23 11:15 WBC RBC Hgb Hct MCV MCH RDW [place] # (Auto) Seg Neutrophils % Seg Neuts % (Manual) Lymphocytes % (Manual) Monocytes % (Manual) Seg Neutrophils # Seg Neutrophils # Man Lymphocytes # (Manual) Monocytes # (Manual) PT APTT D-Dimer Heparin Anti-Xa Level ABG pH POC ABG pCO2 POC ABG pO2 ABG pO2 ABG Hemoglobin ABG Oxyhemoglobin ABG Sodium ABG Potassium ABG Chloride ABG Glucose Carboxyhemoglobin Sodium 126 L D Potassium Chloride 91.9 L Carbon Dioxide 20 L D BUN Creatinine 0.4 L Glucose 274 H POC Glucose 242 H 346 H Lactic Acid Calcium Ferritin AST ALT Lactate Dehydrogenase Troponin T Total Protein Albumin HDL Cholesterol Arterial Blood Glucose Arterial Blood Ionized Calcium Urine WBC (Auto) 05/30/21 05/30/21 05/30/21 11:19 11:19 11:19 WBC 18.9 H RBC 3.36 L Hgb Hct MCV 102 H MCH 33 H RDW 15.5 H [place] # (Auto) Seg Neutrophils % Seg Neuts % (Manual) Lymphocytes % (Manual) Monocytes % (Manual) Seg Neutrophils # Seg Neutrophils # Man Lymphocytes # (Manual) Monocytes # (Manual) PT APTT D-Dimer Heparin Anti-Xa Level < 0.10 L ABG pH POC ABG pCO2 POC ABG pO2 ABG pO2 ABG Hemoglobin ABG Oxyhemoglobin ABG Sodium ABG Potassium ABG Chloride ABG Glucose Carboxyhemoglobin Sodium 124 L Potassium Chloride Carbon Dioxide BUN Creatinine Glucose POC Glucose Lactic Acid Calcium Ferritin AST ALT Lactate Dehydrogenase Troponin T Total Protein Albumin HDL Cholesterol Arterial Blood Glucose Arterial Blood Ionized Calcium Urine WBC (Auto) 05/30/21 05/30/21 05/31/21 17:02 23:27 03:37 WBC RBC Hgb Hct MCV MCH RDW [place] # (Auto) Seg Neutrophils % Seg Neuts % (Manual) Lymphocytes % (Manual) Monocytes % (Manual) Seg Neutrophils # Seg Neutrophils # Man Lymphocytes # (Manual) Monocytes # (Manual) PT APTT D-Dimer Heparin Anti-Xa Level ABG pH POC ABG pCO2 POC ABG pO2 ABG pO2 ABG Hemoglobin 11.6 L ABG Oxyhemoglobin ABG Sodium 130.0 L ABG Potassium ABG Chloride 95.0 L ABG Glucose 292 H Carboxyhemoglobin Sodium Potassium Chloride Carbon Dioxide BUN Creatinine Glucose POC Glucose 270 H 237 H Lactic Acid Calcium Ferritin AST ALT Lactate Dehydrogenase Troponin T Total Protein Albumin HDL Cholesterol Arterial Blood Glucose 292 H Arterial Blood Ionized Calcium Urine WBC (Auto) 05/31/21 05/31/21 05/31/21 04:00 04:00 05:20 WBC 20.9 H RBC 3.13 L Hgb Hct MCV 99 H MCH 34 H RDW [place] # (Auto) Seg Neutrophils % Seg Neuts % (Manual) 81.0 H Lymphocytes % (Manual) 8.0 L Monocytes % (Manual) 9.0 H Seg Neutrophils # Seg Neutrophils # Man 16.9 H Lymphocytes # (Manual) Monocytes # (Manual) 1.9 H PT APTT D-Dimer Heparin Anti-Xa Level ABG pH POC ABG pCO2 POC ABG pO2 ABG pO2 ABG Hemoglobin ABG Oxyhemoglobin ABG Sodium ABG Potassium ABG Chloride ABG Glucose Carboxyhemoglobin Sodium 133 L D Potassium Chloride 95.4 L Carbon Dioxide 21 L BUN 30 H Creatinine 0.5 L Glucose 305 H POC Glucose 269 H Lactic Acid Calcium Ferritin AST ALT Lactate Dehydrogenase Troponin T Total Protein Albumin HDL Cholesterol Arterial Blood Glucose Arterial Blood Ionized Calcium Urine WBC (Auto) 05/31/21 05/31/21 05/31/21 11:40 18:16 23:25 WBC RBC Hgb Hct MCV MCH RDW [place] # (Auto) Seg Neutrophils % Seg Neuts % (Manual) Lymphocytes % (Manual) Monocytes % (Manual) Seg Neutrophils # Seg Neutrophils # Man Lymphocytes # (Manual) Monocytes # (Manual) PT APTT D-Dimer Heparin Anti-Xa Level ABG pH POC ABG pCO2 POC ABG pO2 ABG pO2 ABG Hemoglobin ABG Oxyhemoglobin ABG Sodium ABG Potassium ABG Chloride ABG Glucose Carboxyhemoglobin Sodium Potassium Chloride Carbon Dioxide BUN Creatinine Glucose POC Glucose 364 H 250 H 231 H Lactic Acid Calcium Ferritin AST ALT Lactate Dehydrogenase Troponin T Total Protein Albumin HDL Cholesterol Arterial Blood Glucose Arterial Blood Ionized Calcium Urine WBC (Auto) 06/01/21 06/01/21 06/01/21 04:03 04:58 04:58 WBC 20.7 H RBC 3.20 L Hgb Hct MCV 99 H MCH 34 H RDW [place] # (Auto) Seg Neutrophils % Seg Neuts % (Manual) 82.0 H Lymphocytes % (Manual) 9.0 L Monocytes % (Manual) Seg Neutrophils # Seg Neutrophils # Man 17.0 H Lymphocytes # (Manual) Monocytes # (Manual) 1.4 H PT APTT D-Dimer Heparin Anti-Xa Level 1.18 H ABG pH 7.520 H POC ABG pCO2 POC ABG pO2 66.0 L ABG pO2 ABG Hemoglobin ABG Oxyhemoglobin 92.5 L ABG Sodium 133.6 L ABG Potassium ABG Chloride ABG Glucose 250 H Carboxyhemoglobin Sodium Potassium Chloride Carbon Dioxide BUN Creatinine Glucose POC Glucose Lactic Acid Calcium Ferritin AST ALT Lactate Dehydrogenase Troponin T Total Protein Albumin HDL Cholesterol Arterial Blood Glucose 250 H Arterial Blood Ionized Calcium 4.4 L Urine WBC (Auto) 06/01/21 06/01/21 06/01/21 04:58 05:29 11:39 WBC RBC Hgb Hct MCV MCH RDW [place] # (Auto) Seg Neutrophils % Seg Neuts % (Manual) Lymphocytes % (Manual) Monocytes % (Manual) Seg Neutrophils # Seg Neutrophils # Man Lymphocytes # (Manual) Monocytes # (Manual) PT APTT D-Dimer Heparin Anti-Xa Level ABG pH POC ABG pCO2 POC ABG pO2 ABG pO2 ABG Hemoglobin ABG Oxyhemoglobin ABG Sodium ABG Potassium ABG Chloride ABG Glucose Carboxyhemoglobin Sodium 131 L Potassium Chloride 95.7 L Carbon Dioxide BUN 30 H Creatinine 0.5 L Glucose 241 H POC Glucose 215 H 299 H Lactic Acid Calcium Ferritin AST ALT Lactate Dehydrogenase Troponin T Total Protein Albumin HDL Cholesterol Arterial Blood Glucose Arterial Blood Ionized Calcium Urine WBC (Auto) Chest x-ray: other (none today) Allied health notes reviewed: nursing
[2021-06-01] MEDS: VALSARTAN 160MG TAB PO SCH ×2 (13:38→21:04)
[2021-06-01] MEDS: DOXAZOSIN 1 MG TAB PO SCH ×2 (13:39→21:03)
[2021-06-01] MEDS ORDERED: hydrALAZINE 100 MG TAB PO SCH (14:00)
--- NOTE | 2021-06-01 17:06 | Magnetic Resonance Report ---
MR brain w con INDICATION / CLINICAL INFORMATION: 65 years Female; Seizure disorder. TECHNIQUE: Multiplanar, multisequence MR images of the brain were obtained. COMPARISON: The study is compared to previous MRI of 05/29/2021. FINDINGS: BRAIN / INTRACRANIAL CONTENTS: On the earlier precontrast MRI, subtle foci of increased diffusion sig nal signal was seen along the cortical regions of the cerebral hemispheres bilaterally. There is yohana esponding subtle enhancement within these regions, particularly along the posterior right frontal seg ments including the precentral gyri. Furthermore, fairly symmetric at enhancement is seen involving t he basal ganglia and thalami as well as the tectum and the findings may be seen with postsurgical chandan nges given the history of seizure disorder. Enhancement may also be seen with this pattern with subac [place] ischemic changes and correlation would be needed, particularly regarding any evidence of hypoperf usion. The findings remain neck compatible with incidental enhancing developmental venous anomaly within the posterior right frontal lobe. There is continued cerebral atrophy with mild prominence of the ventri cular system which appears unchanged. CRANIOCERVICAL JUNCTION: No significant abnormality. Sinuses: There is mild mucosal thickening within the ethmoid and sphenoid sinuses. ADDITIONAL FINDINGS: None. IMPRESSION: 1. Additional postcontrast imaging demonstrates fairly symmetric enhancement involving the basal gang darline, thalami, tectum and posterior frontal cortical regions as detailed above which may be seen with postsurgical changes given the history. Enhancement and this pattern may also be seen with subacute i schemic changes and correlation would be needed, particularly regarding any history of hypoperfusion. Signer Name: Lopez Eldridge MD Signed: 06/01/2021 5:01 PM Workstation Name: [id number]
[2021-06-02] MEDS: INSULIN LISPRO 100 UNIT/ML SUB-Q SCH ×4 (00:31→17:59)
[2021-06-02 02:44] LABS: Hematocrit 31.3 % (30.3-42.9); Hemoglobin 10.6 gm/dl (10.1-14.3); Mean Corpuscular HGB Conc 34 % (30-34); Mean Corpuscular Volume 101 fl (79-97); Platelet Count 235 K/mm3 (140-440); Red Blood Count 3.09 M/mm3 (3.65-5.03); Red Cell Distribution Width 15.5 % (13.2-15.2)
[2021-06-02 03:06] LABS: Blood Urea Nitrogen 31 mg/dL (7-17); Calcium 8.7 mg/dL (8.4-10.2); Hemolysis Index 11
[2021-06-02 03:08] LABS: BUN/Creatinine Ratio 62
[2021-06-02] MEDS: HEPARIN/ 0.45% NACL DRIP 25,000 UNIT/500 ML BAG IV SCH (03:14)
--- NOTE | 2021-06-02 09:02 | Progress Note ---
Assessment and Plan Assessment and plan: 65-year-old female, history of nonepileptic spells, PTSD, closed head injury, hypertension, diabetes, CAD, presents to the ED following cardiac arrest. EMS states Patient collapsed and became unresponsive. Patient was pulseless and apneic. Rhythm was asystole. Patient was intubated by EMS. She was given epi x2. ACLS times approximately 10 minutes followed by return of pulses. Accu- Chek in the 200s. With initial rhythm check here in ED, patient was pulseless, so ACLS restarted. Patient has return of pulse and noted to be in atrial fib, initiated on iv keppra and heparin drip. Assessment and plan -- s/p cardiac arrest Pt on NSR on tele, cardiology consulted, ordered 2d echo -- Acute hypoxemic respiratory failure Patient intubated and on ventilatory support. Critical care team consulted. Wean vent as tolerated, daily spontaneous breathing trial, sedation holiday, supportive care, arterial blood gas per protocol. --SIRS, likely from cardiac arrest and seizure s/p abx, all Cx so far neg, monitor off abx --COVID PUI, r/o with negative test --Possible Anoxic brain injury due to cardiac arrest, cont Supportive care, neuro check, ordered MRI brain Consulted Neurology -- Atrial fibrillation with RVR, paroxysmal Cardiology team consulted, continue therapeutic anticoagulation as per cardiology team with heparin drip, supportive care., Rate control. -- Metabolic acidosis IV fluid resuscitation therapy, follow BMP --Hypertension, initiated on antihypertensive, iv hydralazine as needed --Tonic clonic Seizure Neuro check, antiepileptic therapy with Keppra, neuro consult, EEG ordered -- DVT prophylaxis SCD to bilateral lower extremities while in bed, continue therapeutic anticoagulation -- patient is full code, patient son Antwon Higginbotham acknowledges understanding and agreement with care plan, The high probability of a clinically significant, sudden or life threatening deterioration of the [multiple] system(s) required my full and direct attention, intervention and personal management. The aggregate critical care time was [30] minutes. This time is in addition to time spent performing reported procedures but includes the following: [x] Data Review and interpretation [x] Patient assessment and monitoring of vital signs [x] Documentation [x] Medication orders and management Daily clinical course: 05/26/21: Updated family at the bedside, Covid test is negative. Will order EEG and neuro consult. Remains intubated, follow clinically. Sedated on Midazolam and Propofol, just received one dose of Lorazepam for witnessed seizure by RN. NSR now, on heparin drip 05/27/21; remains intubated. pending EEG and neuro eval. wean off vent as tolerated. Continue heparin drip per cardiology, replete potassium yesterday, follow BMP. BP noted to be elevated, next started on antihypertensives. 05/28/21; BP noted to be elevated, initiated on antihypertensive, remains intu bated. Pending neurology evaluation and EEG. Continue supportive care, follow BMP. 05/29/21: Ordered for MRI brain, continue Keppra, pending EEG. Appreciate neuro recommendation. follow BMP, tolerating TF 05/30/21: Patient remains intubated, pending MRI brain, follow neurology recommendation. EEG showed diffuse slowing. 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 off sedation now, cont to follow. gurded prognosis 06/01 -MRI was suggestive of watershed infarct bilaterally and was seen by neurology and recommend to do MRI with gadolinium. Patient is off sedation and still unresponsive. Prognosis is guarded. 06/02 -Continue current management. Prognosis is guarded. Patient needs trach. History Interval history: Patient was seen and evaluated this morning Nursing issues reported overnight Patient was unresponsive Hospitalist Physical - Physical exam Narrative exam: Intubated and on mechanical ventilation. On tube feeding The patient appeared well nourished and normally developed. Vital signs as documented. Head exam is unremarkable. No scleral icterus . Neck is without jugular venous distension, thyromegaly, or carotid bruits. Lungs are clear to auscultation. Cardiac exam reveals regular rate and Rhythm. Abdominal exam reveals normal bowel sounds, nontender, no organomegaly. Extremities are nonedematous and both femoral and pedal pulses are normal. 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 MANAGEMENT COORDINATOR: Unresponsive - Constitutional Vitals: Temp Pulse Resp BP Pulse Ox 97.4 F L 85 27 H 168/73 100 06/02/21 08:00 06/02/21 07:47 06/02/21 07:47 06/02/21 07:47 06/02/21 07:47 General appearance: Present: mild distress HEART Score - HEART Score Troponin: Troponin T 0.226 ng/mL (0.00-0.029) H* D 05/25/21 15:19 Results - Labs CBC & Chem 7: 06/02/21 02:25 06/02/21 02:25 Labs: Laboratory Last Values WBC 17.4 K/mm3 (4.5-11.0) H 06/02/21 02:25 RBC 3.09 M/mm3 (3.65-5.03) L 06/02/21 02:25 Hgb 10.6 gm/dl (10.1-14.3) 06/02/21 02:25 Hct 31.3 % (30.3-42.9) 06/02/21 02:25 MCV 101 fl (79-97) H 06/02/21 02:25 MCH 34 pg (28-32) H 06/02/21 02:25 MCHC 34 % (30-34) 06/02/21 02:25 RDW 15.5 % (13.2-15.2) H 06/02/21 02:25 Plt Count 235 K/mm3 (140-440) 06/02/21 02:25 Lymph % (Auto) 14.3 % (13.4-35.0) 05/28/21 04:00 Cameron % (Auto) 6.9 % (0.0-7.3) 05/28/21 04:00 Eos % (Auto) 0.1 % (0.0-4.3) 05/28/21 04:00 Baso % (Auto) 0.5 % (0.0-1.8) 05/28/21 04:00 Lymph # (Auto) 1.9 K/mm3 (1.2-5.4) 05/28/21 04:00 Cameron # (Auto) 0.9 K/mm3 (0.0-0.8) H 05/28/21 04:00 Eos # (Auto) 0.0 K/mm3 (0.0-0.4) 05/28/21 04:00 Baso # (Auto) 0.1 K/mm3 (0.0-0.1) 05/28/21 04:00 Add Manual Diff Complete 06/01/21 04:58 Total Counted 100 06/01/21 04:58 Seg Neutrophils % 78.2 % (40.0-70.0) H 05/28/21 04:00 Seg Neuts % (Manual) 82.0 % (40.0-70.0) H 06/01/21 04:58 Band Neutrophils % 2.0 % 06/01/21 04:58 Lymphocytes % (Manual) 9.0 % (13.4-35.0) L 06/01/21 04:58 Monocytes % (Manual) 7.0 % (0.0-7.3) 06/01/21 04:58 Eosinophils % (Manual) 1.0 % (0.0-4.3) 05/25/21 09:21 Metamyelocytes % 1.0 % 05/25/21 09: Myelocytes % 2.0 % 05/31/21 04:00 Nucleated RBC % Not Reportable 06/01/21 04:58 Seg Neutrophils # 10.6 K/mm3 (1.8-7.7) H 05/28/21 04:00 Seg Neutrophils # Man 17.0 K/mm3 (1.8-7.7) H 06/01/21 04:58 Band Neutrophils # 0.4 K/mm3 06/01/21 04:58 Lymphocytes # (Manual) 1.9 K/mm3 (1.2-5.4) 06/01/21 04:58 Abs React Lymphs (Man) 0.0 K/mm3 06/01/21 04:58 Monocytes # (Manual) 1.4 K/mm3 (0.0-0.8) H 06/01/21 04:58 Eosinophils # (Manual) 0.0 K/mm3 (0.0-0.4) 06/01/21 04:58 Basophils # (Manual) 0.0 K/mm3 (0.0-0.1) 06/01/21 04:58 Metamyelocytes # 0.0 K/mm3 06/01/21 04:58 Myelocytes # 0.0 K/mm3 06/01/21 04:58 Promyelocytes # 0.0 K/mm3 06/01/21 04:58 Blast Cells # 0.0 K/mm3 06/01/21 04:58 WBC Morphology Not Reportable 06/01/21 04:58 Hypersegmented Neuts Not Reportable 06/01/21 04:58 Hyposegmented Neuts Not Reportable 06/01/21 04:58 Hypogranular Neuts Not Reportable 06/01/21 04:58 Smudge Cells Not Reportable 06/01/21 04:58 Toxic Granulation Not Reportable 06/01/21 04:58 Toxic Vacuolation Not Reportable 06/01/21 04:58 Dohle Bodies Not Reportable 06/01/21 04:58 Pelger-Huet Anomaly Not Reportable 06/01/21 04:58 Peter Rods Not Reportable 06/01/21 04:58 Platelet Estimate Consistent w auto 06/01/21 04:58 Clumped Platelets Not Reportable 06/01/21 04:58 Plt Clumps, EDTA Not Reportable 06/01/21 04:58 Large Platelets Not Reportable 06/01/21 04:58 Giant Platelets Not Reportable 06/01/21 04:58 Platelet Satelliting Not Reportable 06/01/21 04:58 Plt Morphology Comment Not Reportable 06/01/21 04:58 RBC Morphology Normal 06/01/21 04:58 Dimorphic RBCs Not Reportable 06/01/21 04:58 Polychromasia Not Reportable 06/01/21 04:58 Hypochromasia Not Reportable 06/01/21 04:58 Poikilocytosis Not Reportable 06/01/21 04:58 Anisocytosis Not Reportable 06/01/21 04:58 Microcytosis Not Reportable 06/01/21 04:58 Macrocytosis Not Reportable 06/01/21 04:58 Spherocytes Not Reportable 06/01/21 04:58 Pappenheimer Bodies Not Reportable 06/01/21 04:58 Sickle Cells Not Reportable 06/01/21 04:58 Target Cells Not Reportable 06/01/21 04:58 Tear Drop Cells Not Reportable 06/01/21 04:58 Ovalocytes Not Reportable 06/01/21 04:58 Helmet Cells Not Reportable 06/01/21 04:58 Toribio-[place] Bodies Not Reportable 06/01/21 04:58 [place] Rings Not Reportable 06/01/21 04:58 Lin Cells Not Reportable 06/01/21 04:58 Bite Cells Not Reportable 06/01/21 04:58 Crenated Cell Not Reportable 06/01/21 04:58 Elliptocytes Not Reportable 06/01/21 04:58 Acanthocytes (Spur) Not Reportable 06/01/21 04:58 Rouleaux Not Reportable 06/01/21 04:58 Hemoglobin C Crystals Not Reportable 06/01/21 04:58 Schistocytes Not Reportable 06/01/21 04:58 Malaria parasites Not Reportable 06/01/21 04:58 Shravan Bodies Not Reportable 06/01/21 04:58 Hem Pathologist Commnt No 06/01/21 04:58 PT 15.0 Sec. (12.2-14.9) H 05/25/21 09:21 INR 1.13 (0.87-1.13) 05/25/21 09:21 APTT 44.3 Sec. (24.2-36.6) H 05/25/21 09:21 D-Dimer > 70250 ng/mlDDU (0-234) H 05/25/21 09:21 Heparin Anti-Xa Level 0.39 U.I./ml (0.3-0.7) 06/01/21 23:41 ABG pH 7.481 (7.320-7.450) H 06/02/21 04:13 POC ABG pCO2 36.9 mmHg (32.0-48.0) 06/02/21 04:13 ABG pCO2 30.3 mm Hg 05/29/21 05:28 POC ABG pO2 80.0 mmHg (83-108) L 06/02/21 04:13 ABG pO2 96.2 mm Hg (80.0-90.0) H 05/29/21 05:28 POC ABG HCO3 26.9 06/02/21 04:13 ABG HCO3 24.0 mmol/L (20.0-26.0) 05/29/21 05:28 ABG O2 Saturation 95.7 (0-100) 06/02/21 04:13 ABG O2 Content 10.3 (0.0-44) 05/29/21 05:28 POC ABG Base Excess 3.4 06/02/21 04:13 ABG Base Excess 1.2 mmol/L (-2.0-3.0) 05/29/21 05:28 ABG Hemoglobin 11.1 (12.0-17.5) L 06/02/21 04:13 ABG Oxyhemoglobin 95.2 (94-98) 06/02/21 04:13 ABG Carboxyhemoglobin 1.6 % (0.0-5.0) 05/29/21 05:28 ABG Methemoglobin 0.3 (0.0-1.5) 06/02/21 04:13 ABG Sodium 131.9 mmol/L (136.0-145.0) L 06/02/21 04:13 ABG Potassium 3.8 mmol/L (3.40-4.50) 06/02/21 04:13 ABG Chloride 98.0 mmol/L (98-107) 06/02/21 04:13 ABG Glucose 231 mg/dL (65-95) H 06/02/21 04:13 Oxyhemoglobin 96.0 % (95.0-99.0) 05/29/21 05:28 Carboxyhemoglobin 0.2 (0.5-1.5) L 06/02/21 04:13 FiO2 30 % 05/29/21 05:28 FiO2 % 30.0 06/02/21 04:13 Sodium 134 mmol/L (137-145) L 06/02/21 02:25 Potassium 3.9 mmol/L (3.6-5.0) 06/02/21 02:25 Chloride 95.8 mmol/L (98-107) L 06/02/21 02:25 Carbon Dioxide 24 mmol/L (22-30) 06/02/21 02:25 Anion Gap 18 mmol/L 06/02/21 02:25 BUN 31 mg/dL (7-17) H 06/02/21 02:25 Creatinine 0.5 mg/dL (0.6-1.2) L 06/02/21 02:25 Estimated GFR > 60 ml/min 06/02/21 02:25 BUN/Creatinine Ratio 62 % 06/02/21 02:25 Glucose 168 mg/dL (65-100) H 06/02/21 02:25 POC Glucose 230 mg/dL (70-105) H 06/02/21 04:58 Lactic Acid 2.30 mmol/L (0.7-2.0) H* 05/26/21 05:49 Calcium 8.7 mg/dL (8.4-10.2) 06/02/21 02:25 Ferritin 321.6 ng/mL (10.0-200.0) H 05/25/21 09:21 Total Bilirubin 0.70 mg/dL (0.1-1.2) 05/26/21 05:49 Direct Bilirubin < 0.2 mg/dL (0-0.2) 05/25/21 09:21 Indirect Bilirubin 0.2 mg/dL 05/25/21 09:21 AST 111 units/L (5-40) H 05/26/21 05:49 ALT 97 units/L (7-56) H 05/26/21 05:49 Alkaline Phosphatase 88 units/L (35-129) 05/26/21 05:49 Lactate Dehydrogenase 445 units/L (91-180) H 05/25/21 09:21 Troponin T 0.226 ng/mL (0.00-0.029) H* D 05/25/21 15:19 C-Reactive Protein 0.20 mg/dL (0.00-1.30) 05/25/21 09:21 NT-Pro-B Natriuret Pep 173.2 pg/mL (0-900) 05/25/21 09:21 Total Protein 5.4 g/dL (6.3-8.2) L 05/26/21 05:49 Albumin 3.3 g/dL (3.9-5) L 05/26/21 05:49 Albumin/Globulin Ratio 1.6 % 05/26/21 05:49 Triglycerides 124 mg/dL (2-149) 05/30/21 11:19 Cholesterol 198 mg/dL (50-199) 05/25/21 15:19 LDL Cholesterol Direct 80 mg/dL (50-130) 05/25/21 15:19 HDL Cholesterol 64 mg/dL (40-59) H 05/25/21 15:19 Cholesterol/HDL Ratio 3.09 % 05/25/21 15:19 Procalcitonin < 0.05 ng/mL (<0.15) 05/25/21 09:21 Arterial Blood Glucose 231 mg/dL (65-95) H 06/02/21 04:13 Arterial Blood Ionized Calcium 4.6 mg/dL (4.6-5.3) 06/02/21 04:13 Urine Color Straw (Yellow) 05/25/21 10:42 Urine Turbidity Clear (Clear) 05/25/21 10:42 Urine pH 6.0 (5.0-7.0) 05/25/21 10:42 Ur Specific [place] 1.007 (1.003-1.030) 05/25/21 10:42 Urine Protein 100 mg/dl mg/dL (Negative) 05/25/21 10:42 Urine Glucose (UA) >=500 mg/dL (Negative) 05/25/21 10:42 Urine Ketones Neg mg/dL (Negative) 05/25/21 10:42 Urine Blood Mod (Negative) 05/25/21 10:42 Urine Nitrite Neg (Negative) 05/25/21 10:42 Ur Reducing Substances Not Reportable 05/25/21 10:42 Urine Bilirubin Neg (Negative) 05/25/21 10:42 Urine Ictotest Not Reportable 05/25/21 10:42 Urine Urobilinogen < 2.0 mg/dL (<2.0) 05/25/21 10:42 Ur Leukocyte Esterase Neg (Negative) 05/25/21 10:42 Urine WBC (Auto) 11.0 /HPF (0.0-6.0) H 05/25/21 10:42 Urine RBC (Auto) 1.0 /HPF (0.0-6.0) 05/25/21 10:42 U Epithel Cells (Auto) < 1.0 /HPF (0-13.0) 05/25/21 10:42 Urine Bacteria (Auto) 4+ /HPF (Negative) 05/25/21 10:42 Urine Mucus Few /HPF 05/25/21 10:42 Coronavirus (PCR) Negative (Negative) 05/30/21 08:15 Blood Type O POSITIVE 05/25/21 14:07 Antibody Screen Negative 05/25/21 14:07 Tan/IV: Voiding Method External Female Catheter Active Medications - Current Medications Current Medications: Generic Name Dose Route Start Last Admin Trade Name Freq PRN Reason Stop Dose Admin Acetaminophen 650 mg 05/25/21 13:48 05/28/21 04:14 Acetaminophen 325 Mg Tab PO 650 mg Q6H PRN Administration Pain MILD(1-3)/Fever >100.5/SOTOMAYOR Lipase/Protease/Amylase 1 each 05/26/21 10:00 Lipase 10,500/Protease 25,000/Amylase 43,750 (Units) Dr Munguia FEEDTUBE PRN PRN For Clogged Feeding Tube Dextrose 50 ml 05/28/21 14:28 Dextrose 50% In Water (25gm) 50 Ml Syringe IV Q30MIN PRN Hypoglycemia Protocol Doxazosin Mesylate 2 mg 06/01/21 12:00 06/01/21 21:03 Doxazosin 1 Mg Tab PO 2 mg BID ABDIRAHMAN Administration Famotidine 20 mg 05/29/21 10:00 06/01/21 21:03 Famotidine 20 Mg Tab FEEDTUBE 20 mg BID ABDIRAHMAN Administration Glycopyrrolate 2 mg 06/01/21 09:00 06/01/21 20:57 Glycopyrrolate 2 Mg Tab PO 2 mg TID ABDIRAHMAN Administration Heparin Sodium (Porcine) 2,700 unit 05/25/21 13:41 05/30/21 17:46 Heparin 10,000 Units/10 Ml Vial 40 unit/kg (2700 unit) 2,520 unit IV Administration Q6H PRN Anti-Xa Assay < 0.1 units/ml Hydralazine HCl 10 mg 06/01/21 11:43 Hydralazine 20 Mg/1 Ml Inj IV Q4HR PRN SBP >160 Hydrophilic Ointment 1 applic 05/25/21 19:04 Lip Therapy Vaseline TP Q2HR PRN Dry Lips NORepinephrine/NS 8 MG-250 ML 8 mg in 250 mls @ 3.75 mls/hr 05/25/21 09:30 Norepinephrine/Ns 8 Mg-250 Ml (Double Conc) IV TITRATE ABDIRAHMAN Protocol 2 MCG/MIN Heparin Sodium/Sodium Chloride 25,000 unit in 500 mls @ 20 mls/hr 05/25/21 15:00 06/02/21 03:14 Heparin/ 0.45% Nacl-25,000 Unit/500 Ml IV 1,150 units/hr TITRATE ABDIRAHMAN 23 mls/hr Administration Protocol 1,000 UNITS/HR Insulin Glargine 15 units 06/02/21 10:00 Insulin Glargine 100 Units/Ml SUB-Q DAILY ABDIRAHMAN Insulin Human Lispro 0 unit 05/29/21 12:00 06/02/21 05:53 Insulin Lispro 100 Unit/Ml SUB-Q 4 unit Q6HR ABDIRAHMAN Administration Protocol Labetalol HCl 200 mg 06/01/21 12:00 06/01/21 21:02 Labetalol 200 Mg Tab PO 200 mg BID ABDIRAHMAN Administration Levetiracetam 250 mg 06/01/21 22:00 06/01/21 21:05 Levetiracetam 500 Mg/5 Ml Oral Liqd FEEDTUBE 250 mg Q12HR ABDIRAHMAN Administration Lorazepam 2 mg 05/25/21 19:46 05/31/21 03:44 Lorazepam 2 Mg/Ml Vial IV 2 mg ONCE PRN Administration Seizure Multi-Ingred Cream/Lotion/Oil/Oint 1 applic 05/25/21 19:04 Mineral Oil/Petrolatum, White Ophth Oint 3.5 Gm OU Q4HR PRN Dry Eye(s) Senna/Docusate Sodium 1 tab 05/25/21 22:00 06/01/21 21:03 Sennosides/Docusate Sodium 8.6/50 Mg Tab FEEDTUBE 1 tab BID ABDIRAHMAN Administration Simple Syrup 15 ml 05/26/21 10:00 Simple Syrup 15 Ml FEEDTUBE PRN PRN Hypoglycemia Simple Syrup 30 ml 05/26/21 10:00 Simple Syrup 15 Ml FEEDTUBE PRN PRN Hypoglycemia Sodium Bicarbonate 325 mg 05/26/21 10:00 Sodium Bicarbonate 325 Mg Tab FEEDTUBE PRN PRN For Clogged Feeding Tube Sodium Chloride 10 ml 05/25/21 22:00 06/01/21 21:06 Sodium Chloride 0.9% 10 Ml Flush Syringe IV 10 ml BID ABDIRAHMAN Administration Sodium Chloride 10 ml 05/25/21 13:48 05/30/21 02:45 Sodium Chloride 0.9% 10 Ml Flush Syringe IV 10 ml PRN PRN Administration LINE FLUSH Valsartan 160 mg 06/01/21 12:00 06/01/21 21:04 Valsartan 160mg Tab PO 160 mg BID ABDIRAHMAN Administration Nutrition/Malnutrition Assess - Dietary Evaluation Nutrition/Malnutrition Findings: Nutrition Notes Start: 05/26/21 09:00 Freq: Status: Active Protocol: Document 05/31/21 12:37 SG (Rec: 05/31/21 12:44 SG [id number]) Nutrition Notes Need for Assessment generated from: MD Order Initial or Follow up Reassessment Current Diagnosis COPD,Diabetes,Sepsis, Hypertension,Respiratory Failure Other Pertinent Diagnosis cardiac arrest, seizure disorder Current Diet Tube feeding Labs/Tests Na 133 BG 305 Pertinent Medications Reviewed Height 5 ft 4 in Weight 63 kg [place] Body Weight (kg) 54.54 BMI 23.8 Weight Status Appropriate Subjective/Other Information Pt TF not running. Nurse reports pt vomiting and xray referral in process. Nurse reports TF will be restarted later today Burn Absent Trauma Absent Current % PO Negligible Minimum of two criteria No #1 Nutrition Diagnosis Inadequate oral intake Etiology ARF As Evidenced by Signs and Symptoms pt on vent and unable to consume PO Is patient on ventilator? Yes Is Patient Ambulatory and/or Out of Bed No REE-([facility]-confined to bed) 1385.676 Calculation Used for Recommendations [facility] Additional Notes Protein: (1.2-2g/kg) 81-135g Fluid: 1 ml/kcal or per MD Nutrition Intervention Change Diet Order: Start TF Nutrition Support: Vital AF 1.2 at 50 ml/hr Flush 75 ml q4h Kcal 1,440 Protein (gm) 90 Fluid (mL) 973 Goal #1 Meet at least 75% of protein and energy needs via TF Anticipated Discharge Needs: Unable to determine at this time Follow-Up By: 06/01/21 Additional Comments F/U: TF restart, tolerance.
[2021-06-02] MEDS: GLYCOPYRROLATE 2 MG TAB PO SCH ×2 (09:28→13:08)
[2021-06-02] MEDS: SENNOSIDES/DOCUSATE SODIUM 8.6/50 MG TAB FEEDTUBE SCH ×2 (09:28→21:52)
[2021-06-02] MEDS: VALSARTAN 160MG TAB PO SCH ×2 (09:28→21:58)
[2021-06-02] MEDS: levETIRAcetam 500 MG/5 ML ORAL LIQD FEEDTUBE SCH ×2 (09:28→21:52)
[2021-06-02] MEDS: DOXAZOSIN 1 MG TAB PO SCH ×2 (09:28→21:53)
[2021-06-02] MEDS: INSULIN GLARGINE 100 UNITS/ML SUB-Q SCH (09:29)
[2021-06-02] MEDS: FAMOTIDINE 20 MG TAB FEEDTUBE SCH ×2 (09:29→21:53)
--- NOTE | 2021-06-02 12:34 | Progress Note ---
Assessment and Plan Assessment and Plan - Patient Problems # Anoxic brain injury -Supportive care, -neuro check, -MRI brain is suggestive of water shed Infarct Bilateral -- mostly related to H ypoperfusion -Over all prognosis is quarded to poor. -Off all sedation # Sepsis -Sepsis protocol: Chest x-ray, CBC, CMP, urinalysis, blood culture, monitor urine output every shift, monitor fluid balance, IV fluid resuscitation therapy, maintain mean arterial pressure greater than or equal to 65, IV pressor support as clinically indicated to maintain mean arterial pressure, serial lactic acid level. # Acute hypoxemic respiratory failure -Patient intubated and on ventilatory support. Critical care team consulted. Wean vent as tolerated, daily spontaneous breathing trial, sedation holiday, supportive care, arterial blood gas. # Toxic metabolic encephalopathy -Supportive care, neuro check, CT scan head, treat sepsis, # Cardiac arrest -Patient treated" with ACLS protocol with return of perfusing cardiac rhythm. # Atrial fibrillation with RVR -Cardiology team consulted, continue therapeutic anticoagulation as per cardiology team, supportive care., Rate control. # Metabolic acidosis -IV fluid resuscitation therapy, bicarbonate drip. # Seizure -Neuro check, -antiepileptic therapy with Keppra decrese to 250 IV BID -EEG showed no sign of seizure -MRI brain is noted # DVT prophylaxis -SCD to bilateral lower extremities while in bed, continue therapeutic anticoagulation # Advance care planning -Disease education conducted, care plan discussed, diagnoses discussed, poor prognosis discussed, patient is full code, patient son Antwon Higginbotham acknowledges understanding and agreement with care plan, +30 minutes. The high probability of a clinically significant, sudden or life threatening deterioration of the [cardiac, pulmonary, neuro, renal] system(s) required my full and direct attention, intervention and personal management. The aggregate critical care time was [30] minutes. This time is in addition to time spent performing reported procedures but includes the following: [x] Data Review and interpretation [x] Patient assessment and monitoring of vital signs [x] Documentation [x] Medication orders and management will follow over all prognosis is quarded to poor Subjective Date of service: 06/02/21 Principal diagnosis: Ac hypoxemic resp failure; Cardiac arrest; Seizures; Sepsis; AMS; A-Fib RVR Interval history: status is unchanged she is with poorly controlled HTN and is with AF on IV heparine no more eye twitching ,not follow command eyes are wondering around may be fixate on when name called ? No reported seizure EEG showed no clear epileptic activity MRI is remarkable for water shed infarct bilateral -- will repeat with gd as per radiology still pending Objective - Vital Sign Vital Signs - 12hr 06/02/21 06/02/21 06/02/21 00:45 01:00 01:15 Temperature Pulse Rate 75 77 76 Respiratory 20 18 18 Rate Blood Pressure 150/73 149/70 152/65 O2 Sat by Pulse 97 97 96 Oximetry 06/02/21 06/02/21 06/02/21 01:30 01:45 02:00 Temperature Pulse Rate 77 80 75 Respiratory 16 17 17 Rate Blood Pressure 163/68 163/73 139/65 O2 Sat by Pulse 96 96 96 Oximetry 06/02/21 06/02/21 06/02/21 02:15 02:30 02:45 Temperature Pulse Rate 74 78 76 Respiratory 17 14 14 Rate Blood Pressure 143/67 148/64 143/69 O2 Sat by Pulse 96 96 98 Oximetry 06/02/21 06/02/21 06/02/21 03:00 03:15 03:30 Temperature Pulse Rate 77 76 79 Respiratory 15 14 15 Rate Blood Pressure 161/70 138/65 153/70 O2 Sat by Pulse 96 98 98 Oximetry 06/02/21 06/02/21 06/02/21 03:45 03:55 04:00 Temperature 97.7 F Pulse Rate 78 77 Respiratory 17 16 Rate Blood Pressure 147/67 145/67 O2 Sat by Pulse 97 98 Oximetry 06/02/21 06/02/21 06/02/21 04:15 04:20 04:30 Temperature Pulse Rate 85 79 79 Respiratory 15 17 Rate Blood Pressure 140/77 152/67 152/67 O2 Sat by Pulse 97 99 97 Oximetry 06/02/21 06/02/21 06/02/21 04:45 05:00 05:15 Temperature Pulse Rate 87 86 82 Respiratory 19 15 16 Rate Blood Pressure 145/67 158/73 146/64 O2 Sat by Pulse 100 96 96 Oximetry 06/02/21 06/02/21 06/02/21 05:30 05:45 06:00 Temperature Pulse Rate 80 77 80 Respiratory 15 17 12 Rate Blood Pressure 147/70 145/63 160/69 O2 Sat by Pulse 97 96 98 Oximetry 06/02/21 06/02/21 06/02/21 06:15 06:30 06:45 Temperature Pulse Rate 79 82 84 Respiratory 16 18 16 Rate Blood Pressure 146/66 166/73 162/75 O2 Sat by Pulse 98 98 97 Oximetry 06/02/21 06/02/21 06/02/21 07:00 07:15 07:30 Temperature Pulse Rate 81 83 79 Respiratory 15 17 18 Rate Blood Pressure 155/69 168/77 150/71 O2 Sat by Pulse 98 97 98 Oximetry 06/02/21 06/02/21 06/02/21 07:43 07:45 07:47 Temperature Pulse Rate 87 85 85 Respiratory 16 27 H Rate Blood Pressure 150/71 168/73 168/73 O2 Sat by Pulse 100 98 100 Oximetry 06/02/21 06/02/21 06/02/21 08:00 08:15 08:30 Temperature 97.4 F L Pulse Rate 82 80 86 Respiratory 21 20 25 H Rate Blood Pressure 150/70 152/69 168/73 O2 Sat by Pulse 98 97 99 Oximetry 06/02/21 06/02/21 06/02/21 08:45 09:00 09:15 Temperature Pulse Rate 87 89 83 Respiratory 27 H 31 H 24 Rate Blood Pressure 165/73 176/82 159/69 O2 Sat by Pulse 98 98 98 Oximetry 06/02/21 06/02/21 06/02/21 09:28 09:30 09:45 Temperature Pulse Rate 87 86 85 Respiratory 18 33 H Rate Blood Pressure 159/69 172/79 164/80 O2 Sat by Pulse 99 99 Oximetry 06/02/21 06/02/21 06/02/21 10:00 10:15 10:30 Temperature Pulse Rate 78 75 73 Respiratory 28 H 19 17 Rate Blood Pressure 160/77 148/74 144/70 O2 Sat by Pulse 98 99 100 Oximetry 06/02/21 06/02/21 06/02/21 10:45 11:00 11:15 Temperature Pulse Rate 73 77 77 Respiratory 16 24 33 H Rate Blood Pressure 144/69 159/79 155/76 O2 Sat by Pulse 99 99 98 Oximetry 06/02/21 11:36 Temperature Pulse Rate 77 Respiratory 28 H Rate Blood Pressure 157/72 O2 Sat by Pulse 100 Oximetry - General Apperance Constitutional: comfortable - EENT EENT: PERRL, mucous membranes moist - Respiratory Respiratory: lungs clear, rhonchi - Cardiovascular Cardiovascular: regular rate, normal S1, normal S2 Extremities: no peripheral edema bilat, no clubbing, cyanosis - Gastrointestinal Gastrointestinal: normoactive bowel sounds - Integumentary Integumentary: normal - Neurologic Cranial nerve examination: EOMI, VFF, anisocoria, nystagmus, V1/V2/V3 grossly intact, intact, other (eyes wondering no corneal ,intact weak gag , eomi, ) Detailed motor examination: other (no movment to sternal rub ) - Laboratory Findings CBC and BMP: 06/02/21 02:25 06/02/21 02:25 Abnormal Lab Findings: Abnormal Labs 05/25/21 05/25/21 05/25/21 09:07 09:21 09:21 WBC 17.1 H RBC Hgb Hct MCV 106 H MCH 33 H RDW 15.6 H Harper # (Auto) Seg Neutrophils % Seg Neuts % (Manual) Lymphocytes % (Manual) Monocytes % (Manual) Seg Neutrophils # Seg Neutrophils # Man 10.1 H Lymphocytes # (Manual) 5.6 H Monocytes # (Manual) PT 15.0 H APTT 44.3 H D-Dimer > 61122 H Heparin Anti-Xa Level ABG pH 7.116 L POC ABG pCO2 POC ABG pO2 ABG pO2 ABG Hemoglobin ABG Oxyhemoglobin 93.7 L ABG Sodium ABG Potassium ABG Chloride ABG Glucose 395 H Carboxyhemoglobin Sodium Potassium Chloride Carbon Dioxide BUN Creatinine Glucose POC Glucose Lactic Acid Calcium Ferritin AST ALT Lactate Dehydrogenase Troponin T Total Protein Albumin HDL Cholesterol Arterial Blood Glucose 395 H Arterial Blood Ionized Calcium 4.4 L Urine WBC (Auto) 05/25/21 05/25/21 05/25/21 09:21 09:21 09:21 WBC RBC Hgb Hct MCV MCH RDW Harper # (Auto) Seg Neutrophils % Seg Neuts % (Manual) Lymphocytes % (Manual) Monocytes % (Manual) Seg Neutrophils # Seg Neutrophils # Man Lymphocytes # (Manual) Monocytes # (Manual) PT APTT D-Dimer Heparin Anti-Xa Level ABG pH POC ABG pCO2 POC ABG pO2 ABG pO2 ABG Hemoglobin ABG Oxyhemoglobin ABG Sodium ABG Potassium ABG Chloride ABG Glucose Carboxyhemoglobin Sodium Potassium Chloride Carbon Dioxide 10 L BUN Creatinine Glucose 423 H 424 H POC Glucose Lactic Acid Calcium 8.2 L Ferritin 321.6 H AST 162 H ALT 119 H Lactate Dehydrogenase 445 H Troponin T Total Protein 5.6 L Albumin 3.2 L HDL Cholesterol Arterial Blood Glucose Arterial Blood Ionized Calcium Urine WBC (Auto) 05/25/21 05/25/21 05/25/21 09:35 10:42 11:12 WBC RBC Hgb Hct MCV MCH RDW Harper # (Auto) Seg Neutrophils % Seg Neuts % (Manual) Lymphocytes % (Manual) Monocytes % (Manual) Seg Neutrophils # Seg Neutrophils # Man Lymphocytes # (Manual) Monocytes # (Manual) PT APTT D-Dimer Heparin Anti-Xa Level ABG pH POC ABG pCO2 POC ABG pO2 ABG pO2 ABG Hemoglobin ABG Oxyhemoglobin ABG Sodium ABG Potassium ABG Chloride ABG Glucose Carboxyhemoglobin Sodium Potassium Chloride Carbon Dioxide BUN Creatinine Glucose POC Glucose Lactic Acid 16.70 H* 7.70 H* Calcium Ferritin AST ALT Lactate Dehydrogenase Troponin T Total Protein Albumin HDL Cholesterol Arterial Blood Glucose Arterial Blood Ionized Calcium Urine WBC (Auto) 11.0 H 05/25/21 05/25/21 05/25/21 14:07 15:19 19:04 WBC RBC Hgb Hct MCV MCH RDW Harper # (Auto) Seg Neutrophils % Seg Neuts % (Manual) Lymphocytes % (Manual) Monocytes % (Manual) Seg Neutrophils # Seg Neutrophils # Man Lymphocytes # (Manual) Monocytes # (Manual) PT APTT D-Dimer Heparin Anti-Xa Level ABG pH POC ABG pCO2 POC ABG pO2 172.2 H ABG pO2 ABG Hemoglobin ABG Oxyhemoglobin 98.7 H ABG Sodium 135.7 L ABG Potassium ABG Chloride ABG Glucose 255 H Carboxyhemoglobin 0.3 L Sodium Potassium Chloride Carbon Dioxide BUN Creatinine Glucose POC Glucose Lactic Acid 3.90 H* Calcium Ferritin AST ALT Lactate Dehydrogenase Troponin T 0.226 H* D Total Protein Albumin HDL Cholesterol 64 H Arterial Blood Glucose 255 H Arterial Blood Ionized Calcium 3.8 L Urine WBC (Auto) 05/25/21 05/25/21 05/26/21 21:16 21:16 04:00 WBC RBC Hgb Hct MCV MCH RDW Harper # (Auto) Seg Neutrophils % Seg Neuts % (Manual) Lymphocytes % (Manual) Monocytes % (Manual) Seg Neutrophils # Seg Neutrophils # Man Lymphocytes # (Manual) Monocytes # (Manual) PT APTT D-Dimer Heparin Anti-Xa Level 1.19 H ABG pH 7.547 H POC ABG pCO2 POC ABG pO2 ABG pO2 ABG Hemoglobin 11.9 L ABG Oxyhemoglobin ABG Sodium 133.2 L ABG Potassium 3.1 L ABG Chloride ABG Glucose 243 H Carboxyhemoglobin 0.3 L Sodium Potassium Chloride Carbon Dioxide BUN Creatinine Glucose POC Glucose Lactic Acid 2.50 H* Calcium Ferritin AST ALT Lactate Dehydrogenase Troponin T Total Protein Albumin HDL Cholesterol Arterial Blood Glucose 243 H Arterial Blood Ionized Calcium Urine WBC (Auto) 05/26/21 05/26/21 05/26/21 05:49 05:49 17:33 WBC RBC Hgb Hct MCV MCH RDW Harper # (Auto) Seg Neutrophils % Seg Neuts % (Manual) Lymphocytes % (Manual) Monocytes % (Manual) Seg Neutrophils # Seg Neutrophils # Man Lymphocytes # (Manual) Monocytes # (Manual) PT APTT D-Dimer Heparin Anti-Xa Level ABG pH POC ABG pCO2 POC ABG pO2 ABG pO2 ABG Hemoglobin ABG Oxyhemoglobin ABG Sodium ABG Potassium ABG Chloride ABG Glucose Carboxyhemoglobin Sodium Potassium Chloride Carbon Dioxide BUN Creatinine Glucose 226 H POC Glucose 156 H Lactic Acid 2.30 H* Calcium 7.2 L Ferritin AST 111 H ALT 97 H Lactate Dehydrogenase Troponin T Total Protein 5.4 L Albumin 3.3 L HDL Cholesterol Arterial Blood Glucose Arterial Blood Ionized Calcium Urine WBC (Auto) 05/27/21 05/27/21 05/27/21 02:11 02:11 02:11 WBC 14.3 H RBC 3.27 L Hgb Hct MCV 99 H MCH 33 H RDW 15.3 H Harper # (Auto) 1.0 H Seg Neutrophils % Seg Neuts % (Manual) Lymphocytes % (Manual) Monocytes % (Manual) Seg Neutrophils # 10.0 H Seg Neutrophils # Man Lymphocytes # (Manual) Monocytes # (Manual) PT APTT D-Dimer Heparin Anti-Xa Level 0.80 H ABG pH POC ABG pCO2 POC ABG pO2 ABG pO2 ABG Hemoglobin ABG Oxyhemoglobin ABG Sodium ABG Potassium ABG Chloride ABG Glucose Carboxyhemoglobin Sodium Potassium 2.9 L* D Chloride Carbon Dioxide 31 H BUN 6 L Creatinine Glucose 215 H POC Glucose Lactic Acid Calcium 8.1 L Ferritin AST ALT Lactate Dehydrogenase Troponin T Total Protein Albumin HDL Cholesterol Arterial Blood Glucose Arterial Blood Ionized Calcium Urine WBC (Auto) 05/27/21 05/27/21 05/27/21 11:24 12:49 18:06 WBC RBC Hgb Hct MCV MCH RDW Harper # (Auto) Seg Neutrophils % Seg Neuts % (Manual) Lymphocytes % (Manual) Monocytes % (Manual) Seg Neutrophils # Seg Neutrophils # Man Lymphocytes # (Manual) Monocytes # (Manual) PT APTT D-Dimer Heparin Anti-Xa Level ABG pH POC ABG pCO2 POC ABG pO2 ABG pO2 ABG Hemoglobin ABG Oxyhemoglobin ABG Sodium ABG Potassium ABG Chloride ABG Glucose Carboxyhemoglobin Sodium Potassium Chloride Carbon Dioxide BUN Creatinine Glucose POC Glucose 151 H 165 H 137 H Lactic Acid Calcium Ferritin AST ALT Lactate Dehydrogenase Troponin T Total Protein Albumin HDL Cholesterol Arterial Blood Glucose Arterial Blood Ionized Calcium Urine WBC (Auto) 05/28/21 05/28/21 05/28/21 04:00 04:00 06:02 WBC 13.5 H RBC 3.05 L Hgb Hct MCV 100 H MCH 34 H RDW Harper # (Auto) 0.9 H Seg Neutrophils % 78.2 H Seg Neuts % (Manual) Lymphocytes % (Manual) Monocytes % (Manual) Seg Neutrophils # 10.6 H Seg Neutrophils # Man Lymphocytes # (Manual) Monocytes # (Manual) PT APTT D-Dimer Heparin Anti-Xa Level ABG pH 7.507 H POC ABG pCO2 POC ABG pO2 ABG pO2 ABG Hemoglobin 10.6 L ABG Oxyhemoglobin ABG Sodium 129.4 L ABG Potassium ABG Chloride ABG Glucose 243 H Carboxyhemoglobin 0.2 L Sodium 136 L D Potassium Chloride Carbon Dioxide BUN Creatinine Glucose 215 H POC Glucose Lactic Acid Calcium Ferritin AST ALT Lactate Dehydrogenase Troponin T Total Protein Albumin HDL Cholesterol Arterial Blood Glucose 243 H Arterial Blood Ionized Calcium 4.1 L Urine WBC (Auto) 05/28/21 05/28/21 05/29/21 11:27 23:02 04:30 WBC RBC Hgb 9.3 L Hct 26.7 L MCV MCH RDW Harper # (Auto) Seg Neutrophils % Seg Neuts % (Manual) Lymphocytes % (Manual) Monocytes % (Manual) Seg Neutrophils # Seg Neutrophils # Man Lymphocytes # (Manual) Monocytes # (Manual) PT APTT D-Dimer Heparin Anti-Xa Level ABG pH POC ABG pCO2 POC ABG pO2 ABG pO2 ABG Hemoglobin ABG Oxyhemoglobin ABG Sodium ABG Potassium ABG Chloride ABG Glucose Carboxyhemoglobin Sodium Potassium Chloride Carbon Dioxide BUN Creatinine Glucose POC Glucose 220 H 212 H Lactic Acid Calcium Ferritin AST ALT Lactate Dehydrogenase Troponin T Total Protein Albumin HDL Cholesterol Arterial Blood Glucose Arterial Blood Ionized Calcium Urine WBC (Auto) 05/29/21 05/29/21 05/29/21 05:02 05:28 12:55 WBC RBC Hgb Hct MCV MCH RDW Harper # (Auto) Seg Neutrophils % Seg Neuts % (Manual) Lymphocytes % (Manual) Monocytes % (Manual) Seg Neutrophils # Seg Neutrophils # Man Lymphocytes # (Manual) Monocytes # (Manual) PT APTT D-Dimer Heparin Anti-Xa Level ABG pH 7.516 H POC ABG pCO2 POC ABG pO2 ABG pO2 96.2 H ABG Hemoglobin 7.5 L ABG Oxyhemoglobin ABG Sodium ABG Potassium ABG Chloride ABG Glucose Carboxyhemoglobin Sodium Potassium Chloride Carbon Dioxide BUN Creatinine Glucose POC Glucose 197 H 251 H Lactic Acid Calcium Ferritin AST ALT Lactate Dehydrogenase Troponin T Total Protein Albumin HDL Cholesterol Arterial Blood Glucose Arterial Blood Ionized Calcium Urine WBC (Auto) 05/29/21 05/29/21 05/30/21 18:23 23:31 04:10 WBC RBC Hgb Hct MCV MCH RDW Harper # (Auto) Seg Neutrophils % Seg Neuts % (Manual) Lymphocytes % (Manual) Monocytes % (Manual) Seg Neutrophils # Seg Neutrophils # Man Lymphocytes # (Manual) Monocytes # (Manual) PT APTT D-Dimer Heparin Anti-Xa Level ABG pH 7.532 H POC ABG pCO2 30.0 L POC ABG pO2 78.5 L ABG pO2 ABG Hemoglobin 11.3 L ABG Oxyhemoglobin ABG Sodium 126.7 L ABG Potassium ABG Chloride 94.0 L ABG Glucose 270 H Carboxyhemoglobin 0.4 L Sodium Potassium Chloride Carbon Dioxide BUN Creatinine Glucose POC Glucose 236 H 252 H Lactic Acid Calcium Ferritin AST ALT Lactate Dehydrogenase Troponin T Total Protein Albumin HDL Cholesterol Arterial Blood Glucose 270 H Arterial Blood Ionized Calcium 4.4 L Urine WBC (Auto) 05/30/21 05/30/21 05/30/21 05:06 06:23 11:15 WBC RBC Hgb Hct MCV MCH RDW Harper # (Auto) Seg Neutrophils % Seg Neuts % (Manual) Lymphocytes % (Manual) Monocytes % (Manual) Seg Neutrophils # Seg Neutrophils # Man Lymphocytes # (Manual) Monocytes # (Manual) PT APTT D-Dimer Heparin Anti-Xa Level ABG pH POC ABG pCO2 POC ABG pO2 ABG pO2 ABG Hemoglobin ABG Oxyhemoglobin ABG Sodium ABG Potassium ABG Chloride ABG Glucose Carboxyhemoglobin Sodium 126 L D Potassium Chloride 91.9 L Carbon Dioxide 20 L D BUN Creatinine 0.4 L Glucose 274 H POC Glucose 242 H 346 H Lactic Acid Calcium Ferritin AST ALT Lactate Dehydrogenase Troponin T Total Protein Albumin HDL Cholesterol Arterial Blood Glucose Arterial Blood Ionized Calcium Urine WBC (Auto) 05/30/21 05/30/21 05/30/21 11:19 11:19 11:19 WBC 18.9 H RBC 3.36 L Hgb Hct MCV 102 H MCH 33 H RDW 15.5 H Harper # (Auto) Seg Neutrophils % Seg Neuts % (Manual) Lymphocytes % (Manual) Monocytes % (Manual) Seg Neutrophils # Seg Neutrophils # Man Lymphocytes # (Manual) Monocytes # (Manual) PT APTT D-Dimer Heparin Anti-Xa Level < 0.10 L ABG pH POC ABG pCO2 POC ABG pO2 ABG pO2 ABG Hemoglobin ABG Oxyhemoglobin ABG Sodium ABG Potassium ABG Chloride ABG Glucose Carboxyhemoglobin Sodium 124 L Potassium Chloride Carbon Dioxide BUN Creatinine Glucose POC Glucose Lactic Acid Calcium Ferritin AST ALT Lactate Dehydrogenase Troponin T Total Protein Albumin HDL Cholesterol Arterial Blood Glucose Arterial Blood Ionized Calcium Urine WBC (Auto) 05/30/21 05/30/21 05/31/21 17:02 23:27 03:37 WBC RBC Hgb Hct MCV MCH RDW Harper # (Auto) Seg Neutrophils % Seg Neuts % (Manual) Lymphocytes % (Manual) Monocytes % (Manual) Seg Neutrophils # Seg Neutrophils # Man Lymphocytes # (Manual) Monocytes # (Manual) PT APTT D-Dimer Heparin Anti-Xa Level ABG pH POC ABG pCO2 POC ABG pO2 ABG pO2 ABG Hemoglobin 11.6 L ABG Oxyhemoglobin ABG Sodium 130.0 L ABG Potassium ABG Chloride 95.0 L ABG Glucose 292 H Carboxyhemoglobin Sodium Potassium Chloride Carbon Dioxide BUN Creatinine Glucose POC Glucose 270 H 237 H Lactic Acid Calcium Ferritin AST ALT Lactate Dehydrogenase Troponin T Total Protein Albumin HDL Cholesterol Arterial Blood Glucose 292 H Arterial Blood Ionized Calcium Urine WBC (Auto) 05/31/21 05/31/21 05/31/21 04:00 04:00 05:20 WBC 20.9 H RBC 3.13 L Hgb Hct MCV 99 H MCH 34 H RDW Harper # (Auto) Seg Neutrophils % Seg Neuts % (Manual) 81.0 H Lymphocytes % (Manual) 8.0 L Monocytes % (Manual) 9.0 H Seg Neutrophils # Seg Neutrophils # Man 16.9 H Lymphocytes # (Manual) Monocytes # (Manual) 1.9 H PT APTT D-Dimer Heparin Anti-Xa Level ABG pH POC ABG pCO2 POC ABG pO2 ABG pO2 ABG Hemoglobin ABG Oxyhemoglobin ABG Sodium ABG Potassium ABG Chloride ABG Glucose Carboxyhemoglobin Sodium 133 L D Potassium Chloride 95.4 L Carbon Dioxide 21 L BUN 30 H Creatinine 0.5 L Glucose 305 H POC Glucose 269 H Lactic Acid Calcium Ferritin AST ALT Lactate Dehydrogenase Troponin T Total Protein Albumin HDL Cholesterol Arterial Blood Glucose Arterial Blood Ionized Calcium Urine WBC (Auto) 05/31/21 05/31/21 05/31/21 11:40 18:16 23:25 WBC RBC Hgb Hct MCV MCH RDW Harper # (Auto) Seg Neutrophils % Seg Neuts % (Manual) Lymphocytes % (Manual) Monocytes % (Manual) Seg Neutrophils # Seg Neutrophils # Man Lymphocytes # (Manual) Monocytes # (Manual) PT APTT D-Dimer Heparin Anti-Xa Level ABG pH POC ABG pCO2 POC ABG pO2 ABG pO2 ABG Hemoglobin ABG Oxyhemoglobin ABG Sodium ABG Potassium ABG Chloride ABG Glucose Carboxyhemoglobin Sodium Potassium Chloride Carbon Dioxide BUN Creatinine Glucose POC Glucose 364 H 250 H 231 H Lactic Acid Calcium Ferritin AST ALT Lactate Dehydrogenase Troponin T Total Protein Albumin HDL Cholesterol Arterial Blood Glucose Arterial Blood Ionized Calcium Urine WBC (Auto) 06/01/21 06/01/21 06/01/21 04:03 04:58 04:58 WBC 20.7 H RBC 3.20 L Hgb Hct MCV 99 H MCH 34 H RDW Harper # (Auto) Seg Neutrophils % Seg Neuts % (Manual) 82.0 H Lymphocytes % (Manual) 9.0 L Monocytes % (Manual) Seg Neutrophils # Seg Neutrophils # Man 17.0 H Lymphocytes # (Manual) Monocytes # (Manual) 1.4 H PT APTT D-Dimer Heparin Anti-Xa Level 1.18 H ABG pH 7.520 H POC ABG pCO2 POC ABG pO2 66.0 L ABG pO2 ABG Hemoglobin ABG Oxyhemoglobin 92.5 L ABG Sodium 133.6 L ABG Potassium ABG Chloride ABG Glucose 250 H Carboxyhemoglobin Sodium Potassium Chloride Carbon Dioxide BUN Creatinine Glucose POC Glucose Lactic Acid Calcium Ferritin AST ALT Lactate Dehydrogenase Troponin T Total Protein Albumin HDL Cholesterol Arterial Blood Glucose 250 H Arterial Blood Ionized Calcium 4.4 L Urine WBC (Auto) 06/01/21 06/01/21 06/01/21 04:58 05:29 11:39 WBC RBC Hgb Hct MCV MCH RDW Harper # (Auto) Seg Neutrophils % Seg Neuts % (Manual) Lymphocytes % (Manual) Monocytes % (Manual) Seg Neutrophils # Seg Neutrophils # Man Lymphocytes # (Manual) Monocytes # (Manual) PT APTT D-Dimer Heparin Anti-Xa Level ABG pH POC ABG pCO2 POC ABG pO2 ABG pO2 ABG Hemoglobin ABG Oxyhemoglobin ABG Sodium ABG Potassium ABG Chloride ABG Glucose Carboxyhemoglobin Sodium 131 L Potassium Chloride 95.7 L Carbon Dioxide BUN 30 H Creatinine 0.5 L Glucose 241 H POC Glucose 215 H 299 H Lactic Acid Calcium Ferritin AST ALT Lactate Dehydrogenase Troponin T Total Protein Albumin HDL Cholesterol Arterial Blood Glucose Arterial Blood Ionized Calcium Urine WBC (Auto) 06/01/21 06/02/21 06/02/21 18:14 00:12 02:25 WBC 17.4 H RBC 3.09 L Hgb Hct MCV 101 H MCH 34 H RDW 15.5 H Harper # (Auto) Seg Neutrophils % Seg Neuts % (Manual) Lymphocytes % (Manual) Monocytes % (Manual) Seg Neutrophils # Seg Neutrophils # Man Lymphocytes # (Manual) Monocytes # (Manual) PT APTT D-Dimer Heparin Anti-Xa Level ABG pH POC ABG pCO2 POC ABG pO2 ABG pO2 ABG Hemoglobin ABG Oxyhemoglobin ABG Sodium ABG Potassium ABG Chloride ABG Glucose Carboxyhemoglobin Sodium Potassium Chloride Carbon Dioxide BUN Creatinine Glucose POC Glucose 215 H 175 H Lactic Acid Calcium Ferritin AST ALT Lactate Dehydrogenase Troponin T Total Protein Albumin HDL Cholesterol Arterial Blood Glucose Arterial Blood Ionized Calcium Urine WBC (Auto) 06/02/21 06/02/21 06/02/21 02:25 04:13 04:58 WBC RBC Hgb Hct MCV MCH RDW Harper # (Auto) Seg Neutrophils % Seg Neuts % (Manual) Lymphocytes % (Manual) Monocytes % (Manual) Seg Neutrophils # Seg Neutrophils # Man Lymphocytes # (Manual) Monocytes # (Manual) PT APTT D-Dimer Heparin Anti-Xa Level ABG pH 7.481 H POC ABG pCO2 POC ABG pO2 80.0 L ABG pO2 ABG Hemoglobin 11.1 L ABG Oxyhemoglobin ABG Sodium 131.9 L ABG Potassium ABG Chloride ABG Glucose 231 H Carboxyhemoglobin 0.2 L Sodium 134 L Potassium Chloride 95.8 L Carbon Dioxide BUN 31 H Creatinine 0.5 L Glucose 168 H POC Glucose 230 H Lactic Acid Calcium Ferritin AST ALT Lactate Dehydrogenase Troponin T Total Protein Albumin HDL Cholesterol Arterial Blood Glucose 231 H Arterial Blood Ionized Calcium Urine WBC (Auto) 06/02/21 11:27 WBC RBC Hgb Hct MCV MCH RDW Harper # (Auto) Seg Neutrophils % Seg Neuts % (Manual) Lymphocytes % (Manual) Monocytes % (Manual) Seg Neutrophils # Seg Neutrophils # Man Lymphocytes # (Manual) Monocytes # (Manual) PT APTT D-Dimer Heparin Anti-Xa Level ABG pH POC ABG pCO2 POC ABG pO2 ABG pO2 ABG Hemoglobin ABG Oxyhemoglobin ABG Sodium ABG Potassium ABG Chloride ABG Glucose Carboxyhemoglobin Sodium Potassium Chloride Carbon Dioxide BUN Creatinine Glucose POC Glucose 259 H Lactic Acid Calcium Ferritin AST ALT Lactate Dehydrogenase Troponin T Total Protein Albumin HDL Cholesterol Arterial Blood Glucose Arterial Blood Ionized Calcium Urine WBC (Auto)
--- NOTE | 2021-06-02 13:44 | Progress Note ---
Assessment and Plan - Patient Problems (1) Uncontrolled hypertension Current Visit: Yes Status: Acute Plan to address problem: Blood pressure control is improved with Cardura, labetalol and valsartan, will continue this regimen. (2) Respiratory failure Current Visit: Yes Status: Acute Plan to address problem: Patient admitted with respiratory failure which appeared to follow a prolonged seizure episode. Continue supportive management. (3) Atrial fibrillation Current Visit: Yes Status: Acute Plan to address problem: Transient atrial fibrillation was only seen during ACLS resuscitative measures in the field. Subjective Date of service: 06/02/21 Principal diagnosis: Ac hypoxemic resp failure; Cardiac arrest; Seizures; Sepsis; AMS; A-Fib RVR Interval history: Patient is unresponsive, on the vent. On air sampling and monitoring, there is normal sinus rhythm at 81. Blood pressure management has improved with the new regimen of valsartan, labetalol and Cardura. Objective Vital Signs Temp Pulse Resp BP Pulse Ox 06/02/21 12:30 78 25 H 155/82 100 06/02/21 12:15 75 21 154/72 99 06/02/21 12:00 97.7 F 75 22 160/73 98 06/02/21 11:45 77 27 H 163/74 98 06/02/21 11:36 77 28 H 157/72 100 06/02/21 11:30 76 24 157/72 97 06/02/21 11:15 77 33 H 155/76 98 06/02/21 11:00 77 24 159/79 99 06/02/21 10:45 73 16 144/69 99 06/02/21 10:30 73 17 144/70 100 06/02/21 10:15 75 19 148/74 99 06/02/21 10:00 78 28 H 160/77 98 06/02/21 09:45 85 33 H 164/80 99 06/02/21 09:30 86 18 172/79 99 06/02/21 09:28 87 159/69 06/02/21 09:15 83 24 159/69 98 06/02/21 09:00 89 31 H 176/82 98 06/02/21 08:45 87 27 H 165/73 98 06/02/21 08:30 86 25 H 168/73 99 06/02/21 08:15 80 20 152/69 97 06/02/21 08:00 97.4 F L 82 21 150/70 98 06/02/21 07:47 85 27 H 168/73 100 06/02/21 07:45 85 16 168/73 98 06/02/21 07:43 87 150/71 100 06/02/21 07:30 79 18 150/71 98 06/02/21 07:15 83 17 168/77 97 06/02/21 07:00 81 15 155/69 98 06/02/21 06:45 84 16 162/75 97 06/02/21 06:30 82 18 166/73 98 06/02/21 06:15 79 16 146/66 98 06/02/21 06:00 80 12 160/69 98 06/02/21 05:45 77 17 145/63 96 06/02/21 05:30 80 15 147/70 97 06/02/21 05:15 82 16 146/64 96 06/02/21 05:00 86 15 158/73 96 06/02/21 04:45 87 19 145/67 100 06/02/21 04:30 79 17 152/67 97 06/02/21 04:20 79 152/67 99 06/02/21 04:15 85 15 140/77 97 06/02/21 04:00 77 16 145/67 98 06/02/21 03:55 97.7 F 06/02/21 03:45 78 17 147/67 97 06/02/21 03:30 79 15 153/70 98 06/02/21 03:15 76 14 138/65 98 06/02/21 03:00 77 15 161/70 96 06/02/21 02:45 76 14 143/69 98 06/02/21 02:30 78 14 148/64 96 06/02/21 02:15 74 17 143/67 96 06/02/21 02:00 75 17 139/65 96 06/02/21 01:45 80 17 163/73 96 06/02/21 01:30 77 16 163/68 96 06/02/21 01:15 76 18 152/65 96 06/02/21 01:00 77 18 149/70 97 06/02/21 00:45 75 20 150/73 97 06/02/21 00:30 78 22 155/81 99 06/02/21 00:20 86 99 09/24/21 00:15 76 14 155/71 99 06/02/21 00:00 97.8 F 78 16 140/71 100 06/01/21 23:45 76 16 155/71 98 06/01/21 23:31 79 19 165/75 95 06/01/21 23:15 76 15 151/68 97 06/01/21 23:00 74 16 154/67 98 06/01/21 22:45 74 16 141/64 97 06/01/21 22:30 74 19 148/67 96 06/01/21 22:15 75 19 151/69 96 06/01/21 22:00 74 17 140/67 97 06/01/21 21:45 76 17 153/68 98 06/01/21 21:30 83 22 171/78 99 06/01/21 21:15 79 18 156/69 100 06/01/21 21:04 84 164/73 06/01/21 21:03 81 164/73 06/01/21 21:02 80 164/83 06/01/21 21:00 80 16 164/73 99 06/01/21 20:45 83 19 152/80 100 06/01/21 20:30 85 19 152/80 99 06/01/21 20:28 87 166/74 100 06/01/21 20:15 82 26 H 166/74 97 06/01/21 20:00 97.7 F 79 17 153/61 96 06/01/21 19:45 76 18 146/61 99 06/01/21 19:30 79 19 164/72 98 06/01/21 19:15 79 20 161/69 98 06/01/21 19:00 78 20 160/69 97 06/01/21 18:45 74 17 154/63 99 06/01/21 18:30 72 18 163/64 100 06/01/21 18:15 77 18 159/74 100 06/01/21 18:00 74 17 144/66 100 06/01/21 17:45 73 18 143/65 100 06/01/21 17:30 77 14 161/74 100 06/01/21 17:15 72 17 144/66 100 06/01/21 17:00 75 20 144/63 99 06/01/21 16:45 75 22 144/63 96 06/01/21 16:33 79 145/68 91 06/01/21 16:30 75 21 145/68 88 06/01/21 16:15 73 17 138/64 91 06/01/21 16:00 98.9 F 75 20 150/64 96 06/01/21 15:47 74 155/68 06/01/21 14:45 73 17 155/68 100 06/01/21 14:30 75 13 152/68 96 06/01/21 14:15 73 16 184/78 97 06/01/21 14:00 78 17 184/78 97 06/01/21 13:45 77 17 182/82 98 - Physical Examination General: Other (Unresponsive, on the vent) HEENT: Positive: Other (Pupils for) Neck: Positive: neck supple Cardiac: Positive: Reg Rate and Rhythm Lungs: Positive: Decreased Breath Sounds Neuro: Positive: Weakness (Unresponsive, on the vent) Abdomen: Positive: Soft Skin: Positive: Clear Extremities: Absent: edema - Labs and Meds CBC 06/02/21 Range/Units 02:25 WBC 17.4 H (4.5-11.0) K/mm3 RBC 3.09 L (3.65-5.03) M/mm3 Hgb 10.6 (10.1-14.3) gm/dl Hct 31.3 (30.3-42.9) % Plt Count 235 (140-440) K/mm3 Comprehensive Metabolic Panel 06/02/21 Range/Units 02:25 Sodium 134 L (137-145) mmol/L Potassium 3.9 (3.6-5.0) mmol/L Chloride 95.8 L (98-107) mmol/L Carbon Dioxide 24 (22-30) mmol/L BUN 31 H (7-17) mg/dL Creatinine 0.5 L (0.6-1.2) mg/dL Glucose 168 H (65-100) mg/dL Calcium 8.7 (8.4-10.2) mg/dL - Allied health notes Allied health notes reviewed: nursing
--- NOTE | 2021-06-02 13:46 | Progress Note ---
Assessment and Plan Acute hypoxemic respiratory failure on MVS Cardiopulmonary arrest wtih ROSC Seizure disorder Sepsis Toxic metabolic encephalopathy, possible anoxia Atrial fibrillation with RVR Metabolic acidosis Bilateral lower lobe infiltrates - repeat MRI consistent with hypoperfussion injury (s/p Cardiac Arrest) - uyen Hydralazine and Nifedipine for better BP control - continue care as below otherwise; - will likely need trach for safe liberation from MVS except there is significant improvement in mental status - continue scopolamine for secretion control - continue Keppra as AED - daily SAT and SBT assessment as tolerated - continue to wean supplemental oxygen for target O2 sat's > 90% acutely - VAP bundle addressed - continue lung protective strategies - continue bronchodilators with pulmonary hygiene per RT - wean per pulmonary driven protocols otherwise - continue accuchecks with glycemic control per SSI (While critically ill target blood glucose of 140-180 mg/dL; avoid hypoglycemia) - sedation prn for target RASS 0 to -1 - avoid nephrotoxins, renally dose all medications - continue to avoid benzodiazepine's, reduce the possibility of delirium - AB's per ID rec's - prn analgesia per CPOT score - Maintenance of sleep-wake cycle, avoid delirium - continue enteral nutritional support at goal rate as tolerated - G.I. & VTE prophylaxis - PT/OT/ROM exercises - continue mobility protocols for pressure ulcer prophylaxis - Monitor hemodynamics closely - continue other care per attending / other consultants - discharge planning ongoing concurrently COVID SPECIFIC INTERVENTIONS - COVID-19 PCR negative .... Re-evaluate in am & prn CONDITION: CRITICAL PROGNOSIS: GUARDED CODE STATUS: FULL CODE The high probability of a clinically significant, sudden or life-threatening deterioration of the [respiratory, cardiovascular & neurologic] system(s) required my full and direct attention, intervention and personal management. The aggregate critical care time was [32] minutes without overlap. Time includes sp ent on; [x] Data Review and interpretation [x] Patient assessment and monitoring of vital signs [x] Documentation [x] Medication orders and management Subjective Date of service: 06/02/21 Principal diagnosis: Ac hypoxemic resp failure; Cardiac arrest; Seizures; Sepsis; AMS; A-Fib RVR Interval history: Patient is seen today for: Acute hypoxemic respiratory failure; Cardiac arrest wtih ROSC; Seizure disorder; Sepsis; AMS; A-Fib with RVR Seen and examined at bedside; 24hour events reviewed; nursing and respiratory care staff consulted; no adverse overnight events reported to me; resting in bed; remains on MVS; now tolerating SBT with p-supp at 16 cm H2O; AMS is persistent; no emesis or overt aspiration Objective Vital Signs - 12hr 06/02/21 06/02/21 06/02/21 02:00 02:15 02:30 Temperature Pulse Rate 75 74 78 Respiratory 17 17 14 Rate Blood Pressure 139/65 143/67 148/64 O2 Sat by Pulse 96 96 96 Oximetry 06/02/21 06/02/21 06/02/21 02:45 03:00 03:15 Temperature Pulse Rate 76 77 76 Respiratory 14 15 14 Rate Blood Pressure 143/69 161/70 138/65 O2 Sat by Pulse 98 96 98 Oximetry 06/02/21 06/02/21 06/02/21 03:30 03:45 03:55 Temperature 97.7 F Pulse Rate 79 78 Respiratory 15 17 Rate Blood Pressure 153/70 147/67 O2 Sat by Pulse 98 97 Oximetry 06/02/21 06/02/21 06/02/21 04:00 04:15 04:20 Temperature Pulse Rate 77 85 79 Respiratory 16 15 Rate Blood Pressure 145/67 140/77 152/67 O2 Sat by Pulse 98 97 99 Oximetry 06/02/21 06/02/21 06/02/21 04:30 04:45 05:00 Temperature Pulse Rate 79 87 86 Respiratory 17 19 15 Rate Blood Pressure 152/67 145/67 158/73 O2 Sat by Pulse 97 100 96 Oximetry 06/02/21 06/02/21 06/02/21 05:15 05:30 05:45 Temperature Pulse Rate 82 80 77 Respiratory 16 15 17 Rate Blood Pressure 146/64 147/70 145/63 O2 Sat by Pulse 96 97 96 Oximetry 06/02/21 06/02/21 06/02/21 06:00 06:15 06:30 Temperature Pulse Rate 80 79 82 Respiratory 12 16 18 Rate Blood Pressure 160/69 146/66 166/73 O2 Sat by Pulse 98 98 98 Oximetry 06/02/21 06/02/21 06/02/21 06:45 07:00 07:15 Temperature Pulse Rate 84 81 83 Respiratory 16 15 17 Rate Blood Pressure 162/75 155/69 168/77 O2 Sat by Pulse 97 98 97 Oximetry 06/02/21 06/02/21 06/02/21 07:30 07:43 07:45 Temperature Pulse Rate 79 87 85 Respiratory 18 16 Rate Blood Pressure 150/71 150/71 168/73 O2 Sat by Pulse 98 100 98 Oximetry 06/02/21 06/02/21 06/02/21 07:47 08:00 08:15 Temperature 97.4 F L Pulse Rate 85 82 80 Respiratory 27 H 21 20 Rate Blood Pressure 168/73 150/70 152/69 O2 Sat by Pulse 100 98 97 Oximetry 06/02/21 06/02/21 06/02/21 08:30 08:45 09:00 Temperature Pulse Rate 86 87 89 Respiratory 25 H 27 H 31 H Rate Blood Pressure 168/73 165/73 176/82 O2 Sat by Pulse 99 98 98 Oximetry 06/02/21 06/02/21 06/02/21 09:15 09:28 09:30 Temperature Pulse Rate 83 87 86 Respiratory 24 18 Rate Blood Pressure 159/69 159/69 172/79 O2 Sat by Pulse 98 99 Oximetry 06/02/21 06/02/21 06/02/21 09:45 10:00 10:15 Temperature Pulse Rate 85 78 75 Respiratory 33 H 28 H 19 Rate Blood Pressure 164/80 160/77 148/74 O2 Sat by Pulse 99 98 99 Oximetry 06/02/21 06/02/21 06/02/21 10:30 10:45 11:00 Temperature Pulse Rate 73 73 77 Respiratory 17 16 24 Rate Blood Pressure 144/70 144/69 159/79 O2 Sat by Pulse 100 99 99 Oximetry 06/02/21 06/02/21 06/02/21 11:15 11:30 11:36 Temperature Pulse Rate 77 76 77 Respiratory 33 H 24 28 H Rate Blood Pressure 155/76 157/72 157/72 O2 Sat by Pulse 98 97 100 Oximetry 06/02/21 06/02/21 06/02/21 11:45 12:00 12:15 Temperature 97.7 F Pulse Rate 77 75 75 Respiratory 27 H 22 21 Rate Blood Pressure 163/74 160/73 154/72 O2 Sat by Pulse 98 98 99 Oximetry 06/02/21 12:30 Temperature Pulse Rate 78 Respiratory 25 H Rate Blood Pressure 155/82 O2 Sat by Pulse 100 Oximetry Constitutional: no acute distress, other (elderly female with mildly increased respiratory effort at rest on MVS) Eyes: non-icteric ENT: oropharynx moist, oropharyngeal exudate pre (clear), other (ETT at 23cm [place]) Neck: supple, no lymphadenopathy Effort: mildly labored Ascultation: Bilateral: diminished breath sounds, rhonchi Percussion: Bilateral: not dull Cardiovascular: irregular rhythm, other (S1,S2) Gastrointestinal: normoactive bowel sounds Integumentary: normal Extremities: no cyanosis, pink and warm, pulses normal, other (Right femoral CVL) Neurologic: pupils equal and round, other (encephalopathic; sedated) Psychiatric: other (unable to assess) CBC and BMP: 06/02/21 02:25 06/02/21 02:25 ABG, PT/INR, D-dimer: ABG ABG pH 7.481 (7.320-7.450) H 06/02/21 04:13 POC ABG pCO2 36.9 mmHg (32.0-48.0) 06/02/21 04:13 ABG pCO2 30.3 mm Hg 05/29/21 05:28 POC ABG pO2 80.0 mmHg (83-108) L 06/02/21 04:13 ABG pO2 96.2 mm Hg (80.0-90.0) H 05/29/21 05:28 POC ABG HCO3 26.9 06/02/21 04:13 ABG O2 Saturation 95.7 (0-100) 06/02/21 04:13 PT/INR, D-dimer PT 15.0 Sec. (12.2-14.9) H 05/25/21 09:21 INR 1.13 (0.87-1.13) 05/25/21 09:21 D-Dimer > 68134 ng/mlDDU (0-234) H 05/25/21 09:21 Abnormal lab findings: Abnormal Labs 05/25/21 05/25/21 05/25/21 09:07 09:21 09:21 WBC 17.1 H RBC Hgb Hct MCV 106 H MCH 33 H RDW 15.6 H [place] # (Auto) Seg Neutrophils % Seg Neuts % (Manual) Lymphocytes % (Manual) Monocytes % (Manual) Seg Neutrophils # Seg Neutrophils # Man 10.1 H Lymphocytes # (Manual) 5.6 H Monocytes # (Manual) PT 15.0 H APTT 44.3 H D-Dimer > 55398 H Heparin Anti-Xa Level ABG pH 7.116 L POC ABG pCO2 POC ABG pO2 ABG pO2 ABG Hemoglobin ABG Oxyhemoglobin 93.7 L ABG Sodium ABG Potassium ABG Chloride ABG Glucose 395 H Carboxyhemoglobin Sodium Potassium Chloride Carbon Dioxide BUN Creatinine Glucose POC Glucose Lactic Acid Calcium Ferritin AST ALT Lactate Dehydrogenase Troponin T Total Protein Albumin HDL Cholesterol Arterial Blood Glucose 395 H Arterial Blood Ionized Calcium 4.4 L Urine WBC (Auto) 05/25/21 05/25/21 05/25/21 09:21 09:21 09:21 WBC RBC Hgb Hct MCV MCH RDW [place] # (Auto) Seg Neutrophils % Seg Neuts % (Manual) Lymphocytes % (Manual) Monocytes % (Manual) Seg Neutrophils # Seg Neutrophils # Man Lymphocytes # (Manual) Monocytes # (Manual) PT APTT D-Dimer Heparin Anti-Xa Level ABG pH POC ABG pCO2 POC ABG pO2 ABG pO2 ABG Hemoglobin ABG Oxyhemoglobin ABG Sodium ABG Potassium ABG Chloride ABG Glucose Carboxyhemoglobin Sodium Potassium Chloride Carbon Dioxide 10 L BUN Creatinine Glucose 423 H 424 H POC Glucose Lactic Acid Calcium 8.2 L Ferritin 321.6 H AST 162 H ALT 119 H Lactate Dehydrogenase 445 H Troponin T Total Protein 5.6 L Albumin 3.2 L HDL Cholesterol Arterial Blood Glucose Arterial Blood Ionized Calcium Urine WBC (Auto) 05/25/21 05/25/21 05/25/21 09:35 10:42 11:12 WBC RBC Hgb Hct MCV MCH RDW [place] # (Auto) Seg Neutrophils % Seg Neuts % (Manual) Lymphocytes % (Manual) Monocytes % (Manual) Seg Neutrophils # Seg Neutrophils # Man Lymphocytes # (Manual) Monocytes # (Manual) PT APTT D-Dimer Heparin Anti-Xa Level ABG pH POC ABG pCO2 POC ABG pO2 ABG pO2 ABG Hemoglobin ABG Oxyhemoglobin ABG Sodium ABG Potassium ABG Chloride ABG Glucose Carboxyhemoglobin Sodium Potassium Chloride Carbon Dioxide BUN Creatinine Glucose POC Glucose Lactic Acid 16.70 H* 7.70 H* Calcium Ferritin AST ALT Lactate Dehydrogenase Troponin T Total Protein Albumin HDL Cholesterol Arterial Blood Glucose Arterial Blood Ionized Calcium Urine WBC (Auto) 11.0 H 05/25/21 05/25/21 05/25/21 14:07 15:19 19:04 WBC RBC Hgb Hct MCV MCH RDW [place] # (Auto) Seg Neutrophils % Seg Neuts % (Manual) Lymphocytes % (Manual) Monocytes % (Manual) Seg Neutrophils # Seg Neutrophils # Man Lymphocytes # (Manual) Monocytes # (Manual) PT APTT D-Dimer Heparin Anti-Xa Level ABG pH POC ABG pCO2 POC ABG pO2 172.2 H ABG pO2 ABG Hemoglobin ABG Oxyhemoglobin 98.7 H ABG Sodium 135.7 L ABG Potassium ABG Chloride ABG Glucose 255 H Carboxyhemoglobin 0.3 L Sodium Potassium Chloride Carbon Dioxide BUN Creatinine Glucose POC Glucose Lactic Acid 3.90 H* Calcium Ferritin AST ALT Lactate Dehydrogenase Troponin T 0.226 H* D Total Protein Albumin HDL Cholesterol 64 H Arterial Blood Glucose 255 H Arterial Blood Ionized Calcium 3.8 L Urine WBC (Auto) 05/25/21 05/25/21 05/26/21 21:16 21:16 04:00 WBC RBC Hgb Hct MCV MCH RDW [place] # (Auto) Seg Neutrophils % Seg Neuts % (Manual) Lymphocytes % (Manual) Monocytes % (Manual) Seg Neutrophils # Seg Neutrophils # Man Lymphocytes # (Manual) Monocytes # (Manual) PT APTT D-Dimer Heparin Anti-Xa Level 1.19 H ABG pH 7.547 H POC ABG pCO2 POC ABG pO2 ABG pO2 ABG Hemoglobin 11.9 L ABG Oxyhemoglobin ABG Sodium 133.2 L ABG Potassium 3.1 L ABG Chloride ABG Glucose 243 H Carboxyhemoglobin 0.3 L Sodium Potassium Chloride Carbon Dioxide BUN Creatinine Glucose POC Glucose Lactic Acid 2.50 H* Calcium Ferritin AST ALT Lactate Dehydrogenase Troponin T Total Protein Albumin HDL Cholesterol Arterial Blood Glucose 243 H Arterial Blood Ionized Calcium Urine WBC (Auto) 05/26/21 05/26/21 05/26/21 05:49 05:49 17:33 WBC RBC Hgb Hct MCV MCH RDW [place] # (Auto) Seg Neutrophils % Seg Neuts % (Manual) Lymphocytes % (Manual) Monocytes % (Manual) Seg Neutrophils # Seg Neutrophils # Man Lymphocytes # (Manual) Monocytes # (Manual) PT APTT D-Dimer Heparin Anti-Xa Level ABG pH POC ABG pCO2 POC ABG pO2 ABG pO2 ABG Hemoglobin ABG Oxyhemoglobin ABG Sodium ABG Potassium ABG Chloride ABG Glucose Carboxyhemoglobin Sodium Potassium Chloride Carbon Dioxide BUN Creatinine Glucose 226 H POC Glucose 156 H Lactic Acid 2.30 H* Calcium 7.2 L Ferritin AST 111 H ALT 97 H Lactate Dehydrogenase Troponin T Total Protein 5.4 L Albumin 3.3 L HDL Cholesterol Arterial Blood Glucose Arterial Blood Ionized Calcium Urine WBC (Auto) 05/27/21 05/27/21 05/27/21 02:11 02:11 02:11 WBC 14.3 H RBC 3.27 L Hgb Hct MCV 99 H MCH 33 H RDW 15.3 H [place] # (Auto) 1.0 H Seg Neutrophils % Seg Neuts % (Manual) Lymphocytes % (Manual) Monocytes % (Manual) Seg Neutrophils # 10.0 H Seg Neutrophils # Man Lymphocytes # (Manual) Monocytes # (Manual) PT APTT D-Dimer Heparin Anti-Xa Level 0.80 H ABG pH POC ABG pCO2 POC ABG pO2 ABG pO2 ABG Hemoglobin ABG Oxyhemoglobin ABG Sodium ABG Potassium ABG Chloride ABG Glucose Carboxyhemoglobin Sodium Potassium 2.9 L* D Chloride Carbon Dioxide 31 H BUN 6 L Creatinine Glucose 215 H POC Glucose Lactic Acid Calcium 8.1 L Ferritin AST ALT Lactate Dehydrogenase Troponin T Total Protein Albumin HDL Cholesterol Arterial Blood Glucose Arterial Blood Ionized Calcium Urine WBC (Auto) 05/27/21 05/27/21 05/27/21 11:24 12:49 18:06 WBC RBC Hgb Hct MCV MCH RDW [place] # (Auto) Seg Neutrophils % Seg Neuts % (Manual) Lymphocytes % (Manual) Monocytes % (Manual) Seg Neutrophils # Seg Neutrophils # Man Lymphocytes # (Manual) Monocytes # (Manual) PT APTT D-Dimer Heparin Anti-Xa Level ABG pH POC ABG pCO2 POC ABG pO2 ABG pO2 ABG Hemoglobin ABG Oxyhemoglobin ABG Sodium ABG Potassium ABG Chloride ABG Glucose Carboxyhemoglobin Sodium Potassium Chloride Carbon Dioxide BUN Creatinine Glucose POC Glucose 151 H 165 H 137 H Lactic Acid Calcium Ferritin AST ALT Lactate Dehydrogenase Troponin T Total Protein Albumin HDL Cholesterol Arterial Blood Glucose Arterial Blood Ionized Calcium Urine WBC (Auto) 05/28/21 05/28/21 05/28/21 04:00 04:00 06:02 WBC 13.5 H RBC 3.05 L Hgb Hct MCV 100 H MCH 34 H RDW [place] # (Auto) 0.9 H Seg Neutrophils % 78.2 H Seg Neuts % (Manual) Lymphocytes % (Manual) Monocytes % (Manual) Seg Neutrophils # 10.6 H Seg Neutrophils # Man Lymphocytes # (Manual) Monocytes # (Manual) PT APTT D-Dimer Heparin Anti-Xa Level ABG pH 7.507 H POC ABG pCO2 POC ABG pO2 ABG pO2 ABG Hemoglobin 10.6 L ABG Oxyhemoglobin ABG Sodium 129.4 L ABG Potassium ABG Chloride ABG Glucose 243 H Carboxyhemoglobin 0.2 L Sodium 136 L D Potassium Chloride Carbon Dioxide BUN Creatinine Glucose 215 H POC Glucose Lactic Acid Calcium Ferritin AST ALT Lactate Dehydrogenase Troponin T Total Protein Albumin HDL Cholesterol Arterial Blood Glucose 243 H Arterial Blood Ionized Calcium 4.1 L Urine WBC (Auto) 05/28/21 05/28/21 05/29/21 11:27 23:02 04:30 WBC RBC Hgb 9.3 L Hct 26.7 L MCV MCH RDW [place] # (Auto) Seg Neutrophils % Seg Neuts % (Manual) Lymphocytes % (Manual) Monocytes % (Manual) Seg Neutrophils # Seg Neutrophils # Man Lymphocytes # (Manual) Monocytes # (Manual) PT APTT D-Dimer Heparin Anti-Xa Level ABG pH POC ABG pCO2 POC ABG pO2 ABG pO2 ABG Hemoglobin ABG Oxyhemoglobin ABG Sodium ABG Potassium ABG Chloride ABG Glucose Carboxyhemoglobin Sodium Potassium Chloride Carbon Dioxide BUN Creatinine Glucose POC Glucose 220 H 212 H Lactic Acid Calcium Ferritin AST ALT Lactate Dehydrogenase Troponin T Total Protein Albumin HDL Cholesterol Arterial Blood Glucose Arterial Blood Ionized Calcium Urine WBC (Auto) 05/29/21 05/29/21 05/29/21 05:02 05:28 12:55 WBC RBC Hgb Hct MCV MCH RDW [place] # (Auto) Seg Neutrophils % Seg Neuts % (Manual) Lymphocytes % (Manual) Monocytes % (Manual) Seg Neutrophils # Seg Neutrophils # Man Lymphocytes # (Manual) Monocytes # (Manual) PT APTT D-Dimer Heparin Anti-Xa Level ABG pH 7.516 H POC ABG pCO2 POC ABG pO2 ABG pO2 96.2 H ABG Hemoglobin 7.5 L ABG Oxyhemoglobin ABG Sodium ABG Potassium ABG Chloride ABG Glucose Carboxyhemoglobin Sodium Potassium Chloride Carbon Dioxide BUN Creatinine Glucose POC Glucose 197 H 251 H Lactic Acid Calcium Ferritin AST ALT Lactate Dehydrogenase Troponin T Total Protein Albumin HDL Cholesterol Arterial Blood Glucose Arterial Blood Ionized Calcium Urine WBC (Auto) 05/29/21 05/29/21 05/30/21 18:23 23:31 04:10 WBC RBC Hgb Hct MCV MCH RDW [place] # (Auto) Seg Neutrophils % Seg Neuts % (Manual) Lymphocytes % (Manual) Monocytes % (Manual) Seg Neutrophils # Seg Neutrophils # Man Lymphocytes # (Manual) Monocytes # (Manual) PT APTT D-Dimer Heparin Anti-Xa Level ABG pH 7.532 H POC ABG pCO2 30.0 L POC ABG pO2 78.5 L ABG pO2 ABG Hemoglobin 11.3 L ABG Oxyhemoglobin ABG Sodium 126.7 L ABG Potassium ABG Chloride 94.0 L ABG Glucose 270 H Carboxyhemoglobin 0.4 L Sodium Potassium Chloride Carbon Dioxide BUN Creatinine Glucose POC Glucose 236 H 252 H Lactic Acid Calcium Ferritin AST ALT Lactate Dehydrogenase Troponin T Total Protein Albumin HDL Cholesterol Arterial Blood Glucose 270 H Arterial Blood Ionized Calcium 4.4 L Urine WBC (Auto) 05/30/21 05/30/21 05/30/21 05:06 06:23 11:15 WBC RBC Hgb Hct MCV MCH RDW [place] # (Auto) Seg Neutrophils % Seg Neuts % (Manual) Lymphocytes % (Manual) Monocytes % (Manual) Seg Neutrophils # Seg Neutrophils # Man Lymphocytes # (Manual) Monocytes # (Manual) PT APTT D-Dimer Heparin Anti-Xa Level ABG pH POC ABG pCO2 POC ABG pO2 ABG pO2 ABG Hemoglobin ABG Oxyhemoglobin ABG Sodium ABG Potassium ABG Chloride ABG Glucose Carboxyhemoglobin Sodium 126 L D Potassium Chloride 91.9 L Carbon Dioxide 20 L D BUN Creatinine 0.4 L Glucose 274 H POC Glucose 242 H 346 H Lactic Acid Calcium Ferritin AST ALT Lactate Dehydrogenase Troponin T Total Protein Albumin HDL Cholesterol Arterial Blood Glucose Arterial Blood Ionized Calcium Urine WBC (Auto) 05/30/21 05/30/21 05/30/21 11:19 11:19 11:19 WBC 18.9 H RBC 3.36 L Hgb Hct MCV 102 H MCH 33 H RDW 15.5 H [place] # (Auto) Seg Neutrophils % Seg Neuts % (Manual) Lymphocytes % (Manual) Monocytes % (Manual) Seg Neutrophils # Seg Neutrophils # Man Lymphocytes # (Manual) Monocytes # (Manual) PT APTT D-Dimer Heparin Anti-Xa Level < 0.10 L ABG pH POC ABG pCO2 POC ABG pO2 ABG pO2 ABG Hemoglobin ABG Oxyhemoglobin ABG Sodium ABG Potassium ABG Chloride ABG Glucose Carboxyhemoglobin Sodium 124 L Potassium Chloride Carbon Dioxide BUN Creatinine Glucose POC Glucose Lactic Acid Calcium Ferritin AST ALT Lactate Dehydrogenase Troponin T Total Protein Albumin HDL Cholesterol Arterial Blood Glucose Arterial Blood Ionized Calcium Urine WBC (Auto) 05/30/21 05/30/21 05/31/21 17:02 23:27 03:37 WBC RBC Hgb Hct MCV MCH RDW [place] # (Auto) Seg Neutrophils % Seg Neuts % (Manual) Lymphocytes % (Manual) Monocytes % (Manual) Seg Neutrophils # Seg Neutrophils # Man Lymphocytes # (Manual) Monocytes # (Manual) PT APTT D-Dimer Heparin Anti-Xa Level ABG pH POC ABG pCO2 POC ABG pO2 ABG pO2 ABG Hemoglobin 11.6 L ABG Oxyhemoglobin ABG Sodium 130.0 L ABG Potassium ABG Chloride 95.0 L ABG Glucose 292 H Carboxyhemoglobin Sodium Potassium Chloride Carbon Dioxide BUN Creatinine Glucose POC Glucose 270 H 237 H Lactic Acid Calcium Ferritin AST ALT Lactate Dehydrogenase Troponin T Total Protein Albumin HDL Cholesterol Arterial Blood Glucose 292 H Arterial Blood Ionized Calcium Urine WBC (Auto) 05/31/21 05/31/21 05/31/21 04:00 04:00 05:20 WBC 20.9 H RBC 3.13 L Hgb Hct MCV 99 H MCH 34 H RDW [place] # (Auto) Seg Neutrophils % Seg Neuts % (Manual) 81.0 H Lymphocytes % (Manual) 8.0 L Monocytes % (Manual) 9.0 H Seg Neutrophils # Seg Neutrophils # Man 16.9 H Lymphocytes # (Manual) Monocytes # (Manual) 1.9 H PT APTT D-Dimer Heparin Anti-Xa Level ABG pH POC ABG pCO2 POC ABG pO2 ABG pO2 ABG Hemoglobin ABG Oxyhemoglobin ABG Sodium ABG Potassium ABG Chloride ABG Glucose Carboxyhemoglobin Sodium 133 L D Potassium Chloride 95.4 L Carbon Dioxide 21 L BUN 30 H Creatinine 0.5 L Glucose 305 H POC Glucose 269 H Lactic Acid Calcium Ferritin AST ALT Lactate Dehydrogenase Troponin T Total Protein Albumin HDL Cholesterol Arterial Blood Glucose Arterial Blood Ionized Calcium Urine WBC (Auto) 05/31/21 05/31/21 05/31/21 11:40 18:16 23:25 WBC RBC Hgb Hct MCV MCH RDW [place] # (Auto) Seg Neutrophils % Seg Neuts % (Manual) Lymphocytes % (Manual) Monocytes % (Manual) Seg Neutrophils # Seg Neutrophils # Man Lymphocytes # (Manual) Monocytes # (Manual) PT APTT D-Dimer Heparin Anti-Xa Level ABG pH POC ABG pCO2 POC ABG pO2 ABG pO2 ABG Hemoglobin ABG Oxyhemoglobin ABG Sodium ABG Potassium ABG Chloride ABG Glucose Carboxyhemoglobin Sodium Potassium Chloride Carbon Dioxide BUN Creatinine Glucose POC Glucose 364 H 250 H 231 H Lactic Acid Calcium Ferritin AST ALT Lactate Dehydrogenase Troponin T Total Protein Albumin HDL Cholesterol Arterial Blood Glucose Arterial Blood Ionized Calcium Urine WBC (Auto) 06/01/21 06/01/21 06/01/21 04:03 04:58 04:58 WBC 20.7 H RBC 3.20 L Hgb Hct MCV 99 H MCH 34 H RDW [place] # (Auto) Seg Neutrophils % Seg Neuts % (Manual) 82.0 H Lymphocytes % (Manual) 9.0 L Monocytes % (Manual) Seg Neutrophils # Seg Neutrophils # Man 17.0 H Lymphocytes # (Manual) Monocytes # (Manual) 1.4 H PT APTT D-Dimer Heparin Anti-Xa Level 1.18 H ABG pH 7.520 H POC ABG pCO2 POC ABG pO2 66.0 L ABG pO2 ABG Hemoglobin ABG Oxyhemoglobin 92.5 L ABG Sodium 133.6 L ABG Potassium ABG Chloride ABG Glucose 250 H Carboxyhemoglobin Sodium Potassium Chloride Carbon Dioxide BUN Creatinine Glucose POC Glucose Lactic Acid Calcium Ferritin AST ALT Lactate Dehydrogenase Troponin T Total Protein Albumin HDL Cholesterol Arterial Blood Glucose 250 H Arterial Blood Ionized Calcium 4.4 L Urine WBC (Auto) 06/01/21 06/01/21 06/01/21 04:58 05:29 11:39 WBC RBC Hgb Hct MCV MCH RDW [place] # (Auto) Seg Neutrophils % Seg Neuts % (Manual) Lymphocytes % (Manual) Monocytes % (Manual) Seg Neutrophils # Seg Neutrophils # Man Lymphocytes # (Manual) Monocytes # (Manual) PT APTT D-Dimer Heparin Anti-Xa Level ABG pH POC ABG pCO2 POC ABG pO2 ABG pO2 ABG Hemoglobin ABG Oxyhemoglobin ABG Sodium ABG Potassium ABG Chloride ABG Glucose Carboxyhemoglobin Sodium 131 L Potassium Chloride 95.7 L Carbon Dioxide BUN 30 H Creatinine 0.5 L Glucose 241 H POC Glucose 215 H 299 H Lactic Acid Calcium Ferritin AST ALT Lactate Dehydrogenase Troponin T Total Protein Albumin HDL Cholesterol Arterial Blood Glucose Arterial Blood Ionized Calcium Urine WBC (Auto) 06/01/21 06/02/21 06/02/21 18:14 00:12 02:25 WBC 17.4 H RBC 3.09 L Hgb Hct MCV 101 H MCH 34 H RDW 15.5 H [place] # (Auto) Seg Neutrophils % Seg Neuts % (Manual) Lymphocytes % (Manual) Monocytes % (Manual) Seg Neutrophils # Seg Neutrophils # Man Lymphocytes # (Manual) Monocytes # (Manual) PT APTT D-Dimer Heparin Anti-Xa Level ABG pH POC ABG pCO2 POC ABG pO2 ABG pO2 ABG Hemoglobin ABG Oxyhemoglobin ABG Sodium ABG Potassium ABG Chloride ABG Glucose Carboxyhemoglobin Sodium Potassium Chloride Carbon Dioxide BUN Creatinine Glucose POC Glucose 215 H 175 H Lactic Acid Calcium Ferritin AST ALT Lactate Dehydrogenase Troponin T Total Protein Albumin HDL Cholesterol Arterial Blood Glucose Arterial Blood Ionized Calcium Urine WBC (Auto) 06/02/21 06/02/21 06/02/21 02:25 04:13 04:58 WBC RBC Hgb Hct MCV MCH RDW [place] # (Auto) Seg Neutrophils % Seg Neuts % (Manual) Lymphocytes % (Manual) Monocytes % (Manual) Seg Neutrophils # Seg Neutrophils # Man Lymphocytes # (Manual) Monocytes # (Manual) PT APTT D-Dimer Heparin Anti-Xa Level ABG pH 7.481 H POC ABG pCO2 POC ABG pO2 80.0 L ABG pO2 ABG Hemoglobin 11.1 L ABG Oxyhemoglobin ABG Sodium 131.9 L ABG Potassium ABG Chloride ABG Glucose 231 H Carboxyhemoglobin 0.2 L Sodium 134 L Potassium Chloride 95.8 L Carbon Dioxide BUN 31 H Creatinine 0.5 L Glucose 168 H POC Glucose 230 H Lactic Acid Calcium Ferritin AST ALT Lactate Dehydrogenase Troponin T Total Protein Albumin HDL Cholesterol Arterial Blood Glucose 231 H Arterial Blood Ionized Calcium Urine WBC (Auto) 06/02/21 11:27 WBC RBC Hgb Hct MCV MCH RDW [place] # (Auto) Seg Neutrophils % Seg Neuts % (Manual) Lymphocytes % (Manual) Monocytes % (Manual) Seg Neutrophils # Seg Neutrophils # Man Lymphocytes # (Manual) Monocytes # (Manual) PT APTT D-Dimer Heparin Anti-Xa Level ABG pH POC ABG pCO2 POC ABG pO2 ABG pO2 ABG Hemoglobin ABG Oxyhemoglobin ABG Sodium ABG Potassium ABG Chloride ABG Glucose Carboxyhemoglobin Sodium Potassium Chloride Carbon Dioxide BUN Creatinine Glucose POC Glucose 259 H Lactic Acid Calcium Ferritin AST ALT Lactate Dehydrogenase Troponin T Total Protein Albumin HDL Cholesterol Arterial Blood Glucose Arterial Blood Ionized Calcium Urine WBC (Auto) Chest x-ray: pending Allied health notes reviewed: nursing
[2021-06-03] MEDS: GLYCOPYRROLATE 2 MG TAB PO SCH ×4 (00:49→20:32)
[2021-06-03] MEDS: INSULIN LISPRO 100 UNIT/ML SUB-Q SCH ×5 (00:49→23:44)
[2021-06-03] MEDS ORDERED: MORPHINE 2 MG/1 ML INJ ONE (01:50)
[2021-06-03] MEDS: HEPARIN/ 0.45% NACL DRIP 25,000 UNIT/500 ML BAG IV SCH (02:52)
[2021-06-03] MEDS ORDERED: MORPHINE 2 MG/1 ML INJ IV ONE (05:00)
--- NOTE | 2021-06-03 10:07 | Progress Note ---
Assessment and Plan Assessment and Plan - Patient Problems # Anoxic brain injury -Supportive care, -neuro check, -MRI brain is suggestive of water shed Infarct Bilateral -- mostly related to H ypoperfusion -Over all prognosis is quarded to poor. -Off all sedation # Sepsis -Sepsis protocol: Chest x-ray, CBC, CMP, urinalysis, blood culture, monitor urine output every shift, monitor fluid balance, IV fluid resuscitation therapy, maintain mean arterial pressure greater than or equal to 65, IV pressor support as clinically indicated to maintain mean arterial pressure, serial lactic acid level. # Acute hypoxemic respiratory failure -Patient intubated and on ventilatory support. Critical care team consulted. Wean vent as tolerated, daily spontaneous breathing trial, sedation holiday, supportive care, arterial blood gas. # Toxic metabolic encephalopathy -Supportive care, neuro check, CT scan head, treat sepsis, # Cardiac arrest -Patient treated" with ACLS protocol with return of perfusing cardiac rhythm. # Atrial fibrillation with RVR -Cardiology team consulted, continue therapeutic anticoagulation as per cardiology team, supportive care., Rate control. # Metabolic acidosis -IV fluid resuscitation therapy, bicarbonate drip. # Seizure -Neuro check, -antiepileptic therapy with Keppra decrese to 250 IV BID -EEG showed no sign of seizure -MRI brain is noted # DVT prophylaxis -SCD to bilateral lower extremities while in bed, continue therapeutic anticoagulation +++ So far no significant change in status she is off alal sedationX3 days at least prognosis is poor # Advance care planning -Disease education conducted, care plan discussed, diagnoses discussed, poor prognosis discussed, patient is full code, patient son Antwon Higginbotham acknowledges understanding and agreement with care plan, +30 minutes. will sign off Subjective Date of service: 06/03/21 Principal diagnosis: Ac hypoxemic resp failure; Cardiac arrest; Seizures; Sepsis; AMS; A-Fib RVR Interval history: status is unchanged she is with poorly controlled HTN and is with AF on IV heparine no more eye twitching ,not follow command eyes are wondering around may be fixate on when name called ? No reported seizure EEG showed no clear epileptic activity MRI is remarkable for water shed infarct bilateral -- will repeat with gd as per radiology still pending Heparine Ab is elevated Objective - Vital Sign Vital Signs - 12hr 06/02/21 06/02/21 06/02/21 22:15 22:30 22:41 Temperature Pulse Rate 84 81 81 Respiratory 18 21 18 Rate Blood Pressure 147/63 147/61 147/61 O2 Sat by Pulse 95 94 97 Oximetry 06/02/21 06/02/21 06/02/21 22:45 23:00 23:15 Temperature Pulse Rate 82 79 82 Respiratory 15 17 22 Rate Blood Pressure 145/66 142/69 160/69 O2 Sat by Pulse 98 100 95 Oximetry 06/02/21 06/02/21 06/02/21 23:28 23:30 23:45 Temperature Pulse Rate 84 82 82 Respiratory 20 29 H Rate Blood Pressure 142/69 149/66 145/68 O2 Sat by Pulse 98 95 95 Oximetry 06/03/21 06/03/21 06/03/21 00:00 00:15 00:30 Temperature 97.6 F Pulse Rate 81 82 82 Respiratory 17 14 19 Rate Blood Pressure 156/69 162/75 162/74 O2 Sat by Pulse 98 96 95 Oximetry 06/03/21 06/03/21 06/03/21 00:45 01:01 01:15 Temperature Pulse Rate 82 80 82 Respiratory 25 H 19 30 H Rate Blood Pressure 162/74 157/73 157/77 O2 Sat by Pulse 100 98 98 Oximetry 06/03/21 06/03/21 06/03/21 01:30 01:45 02:00 Temperature Pulse Rate 82 86 90 Respiratory 31 H 31 H 34 H Rate Blood Pressure 155/68 155/68 161/75 O2 Sat by Pulse 98 100 99 Oximetry 06/03/21 06/03/21 06/03/21 02:15 02:31 02:45 Temperature Pulse Rate 90 93 H 95 H Respiratory 18 32 H 37 H Rate Blood Pressure 138/65 177/64 177/64 O2 Sat by Pulse 94 88 89 Oximetry 06/03/21 06/03/21 06/03/21 03:00 03:15 03:30 Temperature Pulse Rate 102 H 95 H 95 H Respiratory 30 H 61 H 50 H Rate Blood Pressure 177/66 111/56 121/59 O2 Sat by Pulse 91 96 90 Oximetry 06/03/21 06/03/21 06/03/21 03:45 04:00 04:15 Temperature 97.8 F Pulse Rate 93 H 92 H 90 Respiratory 17 16 26 H Rate Blood Pressure 142/65 141/62 143/61 O2 Sat by Pulse 95 100 97 Oximetry 06/03/21 06/03/21 06/03/21 04:16 04:30 04:45 Temperature Pulse Rate 94 H 91 H 88 Respiratory 21 17 Rate Blood Pressure 143/61 149/65 143/60 O2 Sat by Pulse 100 98 98 Oximetry 06/03/21 06/03/21 06/03/21 05:00 05:15 05:28 Temperature Pulse Rate 88 87 Respiratory 15 14 38 H Rate Blood Pressure 144/60 139/60 O2 Sat by Pulse 99 99 Oximetry 06/03/21 06/03/21 06/03/21 05:30 05:45 06:00 Temperature Pulse Rate 85 85 84 Respiratory 14 14 14 Rate Blood Pressure 139/58 140/56 133/61 O2 Sat by Pulse 99 99 98 Oximetry 06/03/21 06/03/21 08:00 08:48 Temperature 97.6 F Pulse Rate 84 Respiratory 27 H Rate Blood Pressure 149/66 O2 Sat by Pulse 98 Oximetry - General Apperance Constitutional: comfortable - EENT EENT: PERRL, mucous membranes moist - Respiratory Respiratory: lungs clear, rhonchi - Cardiovascular Cardiovascular: other (irregular) Extremities: no peripheral edema bilat, no clubbing, cyanosis - Gastrointestinal Gastrointestinal: normoactive bowel sounds - Integumentary Integumentary: normal - Neurologic Cranial nerve examination: PERRL, EOMI, intact, other (corneal suppressed eyes wondering in all dirrection , slight gag is noted) Speech examination: other (Intubated off sedation) Detailed motor examination: other (no movment to stimuli ) - Laboratory Findings CBC and BMP: 06/02/21 02:25 06/02/21 02:25 Abnormal Lab Findings: Abnormal Labs 05/25/21 05/25/21 05/25/21 09:07 09:21 09:21 WBC 17.1 H RBC Hgb Hct MCV 106 H MCH 33 H RDW 15.6 H [place] # (Auto) Seg Neutrophils % Seg Neuts % (Manual) Lymphocytes % (Manual) Monocytes % (Manual) Seg Neutrophils # Seg Neutrophils # Man 10.1 H Lymphocytes # (Manual) 5.6 H Monocytes # (Manual) PT 15.0 H APTT 44.3 H D-Dimer > 85915 H Heparin Anti-Xa Level ABG pH 7.116 L POC ABG pCO2 POC ABG pO2 ABG pO2 ABG Hemoglobin ABG Oxyhemoglobin 93.7 L ABG Sodium ABG Potassium ABG Chloride ABG Glucose 395 H Carboxyhemoglobin Sodium Potassium Chloride Carbon Dioxide BUN Creatinine Glucose POC Glucose Lactic Acid Calcium Ferritin AST ALT Lactate Dehydrogenase Troponin T Total Protein Albumin HDL Cholesterol Arterial Blood Glucose 395 H Arterial Blood Ionized Calcium 4.4 L Urine WBC (Auto) 05/25/21 05/25/21 05/25/21 09:21 09:21 09:21 WBC RBC Hgb Hct MCV MCH RDW [place] # (Auto) Seg Neutrophils % Seg Neuts % (Manual) Lymphocytes % (Manual) Monocytes % (Manual) Seg Neutrophils # Seg Neutrophils # Man Lymphocytes # (Manual) Monocytes # (Manual) PT APTT D-Dimer Heparin Anti-Xa Level ABG pH POC ABG pCO2 POC ABG pO2 ABG pO2 ABG Hemoglobin ABG Oxyhemoglobin ABG Sodium ABG Potassium ABG Chloride ABG Glucose Carboxyhemoglobin Sodium Potassium Chloride Carbon Dioxide 10 L BUN Creatinine Glucose 423 H 424 H POC Glucose Lactic Acid Calcium 8.2 L Ferritin 321.6 H AST 162 H ALT 119 H Lactate Dehydrogenase 445 H Troponin T Total Protein 5.6 L Albumin 3.2 L HDL Cholesterol Arterial Blood Glucose Arterial Blood Ionized Calcium Urine WBC (Auto) 05/25/21 05/25/21 05/25/21 09:35 10:42 11:12 WBC RBC Hgb Hct MCV MCH RDW [place] # (Auto) Seg Neutrophils % Seg Neuts % (Manual) Lymphocytes % (Manual) Monocytes % (Manual) Seg Neutrophils # Seg Neutrophils # Man Lymphocytes # (Manual) Monocytes # (Manual) PT APTT D-Dimer Heparin Anti-Xa Level ABG pH POC ABG pCO2 POC ABG pO2 ABG pO2 ABG Hemoglobin ABG Oxyhemoglobin ABG Sodium ABG Potassium ABG Chloride ABG Glucose Carboxyhemoglobin Sodium Potassium Chloride Carbon Dioxide BUN Creatinine Glucose POC Glucose Lactic Acid 16.70 H* 7.70 H* Calcium Ferritin AST ALT Lactate Dehydrogenase Troponin T Total Protein Albumin HDL Cholesterol Arterial Blood Glucose Arterial Blood Ionized Calcium Urine WBC (Auto) 11.0 H 05/25/21 05/25/21 05/25/21 14:07 15:19 19:04 WBC RBC Hgb Hct MCV MCH RDW [place] # (Auto) Seg Neutrophils % Seg Neuts % (Manual) Lymphocytes % (Manual) Monocytes % (Manual) Seg Neutrophils # Seg Neutrophils # Man Lymphocytes # (Manual) Monocytes # (Manual) PT APTT D-Dimer Heparin Anti-Xa Level ABG pH POC ABG pCO2 POC ABG pO2 172.2 H ABG pO2 ABG Hemoglobin ABG Oxyhemoglobin 98.7 H ABG Sodium 135.7 L ABG Potassium ABG Chloride ABG Glucose 255 H Carboxyhemoglobin 0.3 L Sodium Potassium Chloride Carbon Dioxide BUN Creatinine Glucose POC Glucose Lactic Acid 3.90 H* Calcium Ferritin AST ALT Lactate Dehydrogenase Troponin T 0.226 H* D Total Protein Albumin HDL Cholesterol 64 H Arterial Blood Glucose 255 H Arterial Blood Ionized Calcium 3.8 L Urine WBC (Auto) 05/25/21 05/25/21 05/26/21 21:16 21:16 04:00 WBC RBC Hgb Hct MCV MCH RDW [place] # (Auto) Seg Neutrophils % Seg Neuts % (Manual) Lymphocytes % (Manual) Monocytes % (Manual) Seg Neutrophils # Seg Neutrophils # Man Lymphocytes # (Manual) Monocytes # (Manual) PT APTT D-Dimer Heparin Anti-Xa Level 1.19 H ABG pH 7.547 H POC ABG pCO2 POC ABG pO2 ABG pO2 ABG Hemoglobin 11.9 L ABG Oxyhemoglobin ABG Sodium 133.2 L ABG Potassium 3.1 L ABG Chloride ABG Glucose 243 H Carboxyhemoglobin 0.3 L Sodium Potassium Chloride Carbon Dioxide BUN Creatinine Glucose POC Glucose Lactic Acid 2.50 H* Calcium Ferritin AST ALT Lactate Dehydrogenase Troponin T Total Protein Albumin HDL Cholesterol Arterial Blood Glucose 243 H Arterial Blood Ionized Calcium Urine WBC (Auto) 05/26/21 05/26/21 05/26/21 05:49 05:49 17:33 WBC RBC Hgb Hct MCV MCH RDW [place] # (Auto) Seg Neutrophils % Seg Neuts % (Manual) Lymphocytes % (Manual) Monocytes % (Manual) Seg Neutrophils # Seg Neutrophils # Man Lymphocytes # (Manual) Monocytes # (Manual) PT APTT D-Dimer Heparin Anti-Xa Level ABG pH POC ABG pCO2 POC ABG pO2 ABG pO2 ABG Hemoglobin ABG Oxyhemoglobin ABG Sodium ABG Potassium ABG Chloride ABG Glucose Carboxyhemoglobin Sodium Potassium Chloride Carbon Dioxide BUN Creatinine Glucose 226 H POC Glucose 156 H Lactic Acid 2.30 H* Calcium 7.2 L Ferritin AST 111 H ALT 97 H Lactate Dehydrogenase Troponin T Total Protein 5.4 L Albumin 3.3 L HDL Cholesterol Arterial Blood Glucose Arterial Blood Ionized Calcium Urine WBC (Auto) 09/05/27/21 05/27/21 02:11 02:11 02:11 WBC 14.3 H RBC 3.27 L Hgb Hct MCV 99 H MCH 33 H RDW 15.3 H [place] # (Auto) 1.0 H Seg Neutrophils % Seg Neuts % (Manual) Lymphocytes % (Manual) Monocytes % (Manual) Seg Neutrophils # 10.0 H Seg Neutrophils # Man Lymphocytes # (Manual) Monocytes # (Manual) PT APTT D-Dimer Heparin Anti-Xa Level 0.80 H ABG pH POC ABG pCO2 POC ABG pO2 ABG pO2 ABG Hemoglobin ABG Oxyhemoglobin ABG Sodium ABG Potassium ABG Chloride ABG Glucose Carboxyhemoglobin Sodium Potassium 2.9 L* D Chloride Carbon Dioxide 31 H BUN 6 L Creatinine Glucose 215 H POC Glucose Lactic Acid Calcium 8.1 L Ferritin AST ALT Lactate Dehydrogenase Troponin T Total Protein Albumin HDL Cholesterol Arterial Blood Glucose Arterial Blood Ionized Calcium Urine WBC (Auto) 05/27/21 05/27/21 05/27/21 11:24 12:49 18:06 WBC RBC Hgb Hct MCV MCH RDW [place] # (Auto) Seg Neutrophils % Seg Neuts % (Manual) Lymphocytes % (Manual) Monocytes % (Manual) Seg Neutrophils # Seg Neutrophils # Man Lymphocytes # (Manual) Monocytes # (Manual) PT APTT D-Dimer Heparin Anti-Xa Level ABG pH POC ABG pCO2 POC ABG pO2 ABG pO2 ABG Hemoglobin ABG Oxyhemoglobin ABG Sodium ABG Potassium ABG Chloride ABG Glucose Carboxyhemoglobin Sodium Potassium Chloride Carbon Dioxide BUN Creatinine Glucose POC Glucose 151 H 165 H 137 H Lactic Acid Calcium Ferritin AST ALT Lactate Dehydrogenase Troponin T Total Protein Albumin HDL Cholesterol Arterial Blood Glucose Arterial Blood Ionized Calcium Urine WBC (Auto) 05/28/21 05/28/21 05/28/21 04:00 04:00 06:02 WBC 13.5 H RBC 3.05 L Hgb Hct MCV 100 H MCH 34 H RDW [place] # (Auto) 0.9 H Seg Neutrophils % 78.2 H Seg Neuts % (Manual) Lymphocytes % (Manual) Monocytes % (Manual) Seg Neutrophils # 10.6 H Seg Neutrophils # Man Lymphocytes # (Manual) Monocytes # (Manual) PT APTT D-Dimer Heparin Anti-Xa Level ABG pH 7.507 H POC ABG pCO2 POC ABG pO2 ABG pO2 ABG Hemoglobin 10.6 L ABG Oxyhemoglobin ABG Sodium 129.4 L ABG Potassium ABG Chloride ABG Glucose 243 H Carboxyhemoglobin 0.2 L Sodium 136 L D Potassium Chloride Carbon Dioxide BUN Creatinine Glucose 215 H POC Glucose Lactic Acid Calcium Ferritin AST ALT Lactate Dehydrogenase Troponin T Total Protein Albumin HDL Cholesterol Arterial Blood Glucose 243 H Arterial Blood Ionized Calcium 4.1 L Urine WBC (Auto) 05/28/21 05/28/21 05/29/21 11:27 23:02 04:30 WBC RBC Hgb 9.3 L Hct 26.7 L MCV MCH RDW [place] # (Auto) Seg Neutrophils % Seg Neuts % (Manual) Lymphocytes % (Manual) Monocytes % (Manual) Seg Neutrophils # Seg Neutrophils # Man Lymphocytes # (Manual) Monocytes # (Manual) PT APTT D-Dimer Heparin Anti-Xa Level ABG pH POC ABG pCO2 POC ABG pO2 ABG pO2 ABG Hemoglobin ABG Oxyhemoglobin ABG Sodium ABG Potassium ABG Chloride ABG Glucose Carboxyhemoglobin Sodium Potassium Chloride Carbon Dioxide BUN Creatinine Glucose POC Glucose 220 H 212 H Lactic Acid Calcium Ferritin AST ALT Lactate Dehydrogenase Troponin T Total Protein Albumin HDL Cholesterol Arterial Blood Glucose Arterial Blood Ionized Calcium Urine WBC (Auto) 05/29/21 05/29/21 05/29/21 05:02 05:28 12:55 WBC RBC Hgb Hct MCV MCH RDW [place] # (Auto) Seg Neutrophils % Seg Neuts % (Manual) Lymphocytes % (Manual) Monocytes % (Manual) Seg Neutrophils # Seg Neutrophils # Man Lymphocytes # (Manual) Monocytes # (Manual) PT APTT D-Dimer Heparin Anti-Xa Level ABG pH 7.516 H POC ABG pCO2 POC ABG pO2 ABG pO2 96.2 H ABG Hemoglobin 7.5 L ABG Oxyhemoglobin ABG Sodium ABG Potassium ABG Chloride ABG Glucose Carboxyhemoglobin Sodium Potassium Chloride Carbon Dioxide BUN Creatinine Glucose POC Glucose 197 H 251 H Lactic Acid Calcium Ferritin AST ALT Lactate Dehydrogenase Troponin T Total Protein Albumin HDL Cholesterol Arterial Blood Glucose Arterial Blood Ionized Calcium Urine WBC (Auto) 05/29/21 05/29/21 05/30/21 18:23 23:31 04:10 WBC RBC Hgb Hct MCV MCH RDW [place] # (Auto) Seg Neutrophils % Seg Neuts % (Manual) Lymphocytes % (Manual) Monocytes % (Manual) Seg Neutrophils # Seg Neutrophils # Man Lymphocytes # (Manual) Monocytes # (Manual) PT APTT D-Dimer Heparin Anti-Xa Level ABG pH 7.532 H POC ABG pCO2 30.0 L POC ABG pO2 78.5 L ABG pO2 ABG Hemoglobin 11.3 L ABG Oxyhemoglobin ABG Sodium 126.7 L ABG Potassium ABG Chloride 94.0 L ABG Glucose 270 H Carboxyhemoglobin 0.4 L Sodium Potassium Chloride Carbon Dioxide BUN Creatinine Glucose POC Glucose 236 H 252 H Lactic Acid Calcium Ferritin AST ALT Lactate Dehydrogenase Troponin T Total Protein Albumin HDL Cholesterol Arterial Blood Glucose 270 H Arterial Blood Ionized Calcium 4.4 L Urine WBC (Auto) 05/30/21 05/30/21 05/30/21 05:06 06:23 11:15 WBC RBC Hgb Hct MCV MCH RDW [place] # (Auto) Seg Neutrophils % Seg Neuts % (Manual) Lymphocytes % (Manual) Monocytes % (Manual) Seg Neutrophils # Seg Neutrophils # Man Lymphocytes # (Manual) Monocytes # (Manual) PT APTT D-Dimer Heparin Anti-Xa Level ABG pH POC ABG pCO2 POC ABG pO2 ABG pO2 ABG Hemoglobin ABG Oxyhemoglobin ABG Sodium ABG Potassium ABG Chloride ABG Glucose Carboxyhemoglobin Sodium 126 L D Potassium Chloride 91.9 L Carbon Dioxide 20 L D BUN Creatinine 0.4 L Glucose 274 H POC Glucose 242 H 346 H Lactic Acid Calcium Ferritin AST ALT Lactate Dehydrogenase Troponin T Total Protein Albumin HDL Cholesterol Arterial Blood Glucose Arterial Blood Ionized Calcium Urine WBC (Auto) 05/30/21 05/30/21 05/30/21 11:19 11:19 11:19 WBC 18.9 H RBC 3.36 L Hgb Hct MCV 102 H MCH 33 H RDW 15.5 H [place] # (Auto) Seg Neutrophils % Seg Neuts % (Manual) Lymphocytes % (Manual) Monocytes % (Manual) Seg Neutrophils # Seg Neutrophils # Man Lymphocytes # (Manual) Monocytes # (Manual) PT APTT D-Dimer Heparin Anti-Xa Level < 0.10 L ABG pH POC ABG pCO2 POC ABG pO2 ABG pO2 ABG Hemoglobin ABG Oxyhemoglobin ABG Sodium ABG Potassium ABG Chloride ABG Glucose Carboxyhemoglobin Sodium 124 L Potassium Chloride Carbon Dioxide BUN Creatinine Glucose POC Glucose Lactic Acid Calcium Ferritin AST ALT Lactate Dehydrogenase Troponin T Total Protein Albumin HDL Cholesterol Arterial Blood Glucose Arterial Blood Ionized Calcium Urine WBC (Auto) 05/30/21 05/30/21 05/31/21 17:02 23:27 03:37 WBC RBC Hgb Hct MCV MCH RDW [place] # (Auto) Seg Neutrophils % Seg Neuts % (Manual) Lymphocytes % (Manual) Monocytes % (Manual) Seg Neutrophils # Seg Neutrophils # Man Lymphocytes # (Manual) Monocytes # (Manual) PT APTT D-Dimer Heparin Anti-Xa Level ABG pH POC ABG pCO2 POC ABG pO2 ABG pO2 ABG Hemoglobin 11.6 L ABG Oxyhemoglobin ABG Sodium 130.0 L ABG Potassium ABG Chloride 95.0 L ABG Glucose 292 H Carboxyhemoglobin Sodium Potassium Chloride Carbon Dioxide BUN Creatinine Glucose POC Glucose 270 H 237 H Lactic Acid Calcium Ferritin AST ALT Lactate Dehydrogenase Troponin T Total Protein Albumin HDL Cholesterol Arterial Blood Glucose 292 H Arterial Blood Ionized Calcium Urine WBC (Auto) 05/31/21 05/31/21 05/31/21 04:00 04:00 05:20 WBC 20.9 H RBC 3.13 L Hgb Hct MCV 99 H MCH 34 H RDW [place] # (Auto) Seg Neutrophils % Seg Neuts % (Manual) 81.0 H Lymphocytes % (Manual) 8.0 L Monocytes % (Manual) 9.0 H Seg Neutrophils # Seg Neutrophils # Man 16.9 H Lymphocytes # (Manual) Monocytes # (Manual) 1.9 H PT APTT D-Dimer Heparin Anti-Xa Level ABG pH POC ABG pCO2 POC ABG pO2 ABG pO2 ABG Hemoglobin ABG Oxyhemoglobin ABG Sodium ABG Potassium ABG Chloride ABG Glucose Carboxyhemoglobin Sodium 133 L D Potassium Chloride 95.4 L Carbon Dioxide 21 L BUN 30 H Creatinine 0.5 L Glucose 305 H POC Glucose 269 H Lactic Acid Calcium Ferritin AST ALT Lactate Dehydrogenase Troponin T Total Protein Albumin HDL Cholesterol Arterial Blood Glucose Arterial Blood Ionized Calcium Urine WBC (Auto) 05/31/21 05/31/21 05/31/21 11:40 18:16 23:25 WBC RBC Hgb Hct MCV MCH RDW [place] # (Auto) Seg Neutrophils % Seg Neuts % (Manual) Lymphocytes % (Manual) Monocytes % (Manual) Seg Neutrophils # Seg Neutrophils # Man Lymphocytes # (Manual) Monocytes # (Manual) PT APTT D-Dimer Heparin Anti-Xa Level ABG pH POC ABG pCO2 POC ABG pO2 ABG pO2 ABG Hemoglobin ABG Oxyhemoglobin ABG Sodium ABG Potassium ABG Chloride ABG Glucose Carboxyhemoglobin Sodium Potassium Chloride Carbon Dioxide BUN Creatinine Glucose POC Glucose 364 H 250 H 231 H Lactic Acid Calcium Ferritin AST ALT Lactate Dehydrogenase Troponin T Total Protein Albumin HDL Cholesterol Arterial Blood Glucose Arterial Blood Ionized Calcium Urine WBC (Auto) 06/01/21 06/01/21 06/01/21 04:03 04:58 04:58 WBC 20.7 H RBC 3.20 L Hgb Hct MCV 99 H MCH 34 H RDW [place] # (Auto) Seg Neutrophils % Seg Neuts % (Manual) 82.0 H Lymphocytes % (Manual) 9.0 L Monocytes % (Manual) Seg Neutrophils # Seg Neutrophils # Man 17.0 H Lymphocytes # (Manual) Monocytes # (Manual) 1.4 H PT APTT D-Dimer Heparin Anti-Xa Level 1.18 H ABG pH 7.520 H POC ABG pCO2 POC ABG pO2 66.0 L ABG pO2 ABG Hemoglobin ABG Oxyhemoglobin 92.5 L ABG Sodium 133.6 L ABG Potassium ABG Chloride ABG Glucose 250 H Carboxyhemoglobin Sodium Potassium Chloride Carbon Dioxide BUN Creatinine Glucose POC Glucose Lactic Acid Calcium Ferritin AST ALT Lactate Dehydrogenase Troponin T Total Protein Albumin HDL Cholesterol Arterial Blood Glucose 250 H Arterial Blood Ionized Calcium 4.4 L Urine WBC (Auto) 06/01/21 06/01/21 06/01/21 04:58 05:29 11:39 WBC RBC Hgb Hct MCV MCH RDW [place] # (Auto) Seg Neutrophils % Seg Neuts % (Manual) Lymphocytes % (Manual) Monocytes % (Manual) Seg Neutrophils # Seg Neutrophils # Man Lymphocytes # (Manual) Monocytes # (Manual) PT APTT D-Dimer Heparin Anti-Xa Level ABG pH POC ABG pCO2 POC ABG pO2 ABG pO2 ABG Hemoglobin ABG Oxyhemoglobin ABG Sodium ABG Potassium ABG Chloride ABG Glucose Carboxyhemoglobin Sodium 131 L Potassium Chloride 95.7 L Carbon Dioxide BUN 30 H Creatinine 0.5 L Glucose 241 H POC Glucose 215 H 299 H Lactic Acid Calcium Ferritin AST ALT Lactate Dehydrogenase Troponin T Total Protein Albumin HDL Cholesterol Arterial Blood Glucose Arterial Blood Ionized Calcium Urine WBC (Auto) 06/01/21 06/02/21 06/02/21 18:14 00:12 02:25 WBC 17.4 H RBC 3.09 L Hgb Hct MCV 101 H MCH 34 H RDW 15.5 H [place] # (Auto) Seg Neutrophils % Seg Neuts % (Manual) Lymphocytes % (Manual) Monocytes % (Manual) Seg Neutrophils # Seg Neutrophils # Man Lymphocytes # (Manual) Monocytes # (Manual) PT APTT D-Dimer Heparin Anti-Xa Level ABG pH POC ABG pCO2 POC ABG pO2 ABG pO2 ABG Hemoglobin ABG Oxyhemoglobin ABG Sodium ABG Potassium ABG Chloride ABG Glucose Carboxyhemoglobin Sodium Potassium Chloride Carbon Dioxide BUN Creatinine Glucose POC Glucose 215 H 175 H Lactic Acid Calcium Ferritin AST ALT Lactate Dehydrogenase Troponin T Total Protein Albumin HDL Cholesterol Arterial Blood Glucose Arterial Blood Ionized Calcium Urine WBC (Auto) 06/02/21 06/02/21 06/02/21 02:25 04:13 04:58 WBC RBC Hgb Hct MCV MCH RDW [place] # (Auto) Seg Neutrophils % Seg Neuts % (Manual) Lymphocytes % (Manual) Monocytes % (Manual) Seg Neutrophils # Seg Neutrophils # Man Lymphocytes # (Manual) Monocytes # (Manual) PT APTT D-Dimer Heparin Anti-Xa Level ABG pH 7.481 H POC ABG pCO2 POC ABG pO2 80.0 L ABG pO2 ABG Hemoglobin 11.1 L ABG Oxyhemoglobin ABG Sodium 131.9 L ABG Potassium ABG Chloride ABG Glucose 231 H Carboxyhemoglobin 0.2 L Sodium 134 L Potassium Chloride 95.8 L Carbon Dioxide BUN 31 H Creatinine 0.5 L Glucose 168 H POC Glucose 230 H Lactic Acid Calcium Ferritin AST ALT Lactate Dehydrogenase Troponin T Total Protein Albumin HDL Cholesterol Arterial Blood Glucose 231 H Arterial Blood Ionized Calcium Urine WBC (Auto) 06/02/21 06/02/21 06/02/21 11:27 17:47 23:53 WBC RBC Hgb Hct MCV MCH RDW [place] # (Auto) Seg Neutrophils % Seg Neuts % (Manual) Lymphocytes % (Manual) Monocytes % (Manual) Seg Neutrophils # Seg Neutrophils # Man Lymphocytes # (Manual) Monocytes # (Manual) PT APTT D-Dimer Heparin Anti-Xa Level 0.80 H ABG pH POC ABG pCO2 POC ABG pO2 ABG pO2 ABG Hemoglobin ABG Oxyhemoglobin ABG Sodium ABG Potassium ABG Chloride ABG Glucose Carboxyhemoglobin Sodium Potassium Chloride Carbon Dioxide BUN Creatinine Glucose POC Glucose 259 H 297 H Lactic Acid Calcium Ferritin AST ALT Lactate Dehydrogenase Troponin T Total Protein Albumin HDL Cholesterol Arterial Blood Glucose Arterial Blood Ionized Calcium Urine WBC (Auto) 06/03/21 06/03/21 06/03/21 00:05 05:23 09:10 WBC RBC Hgb Hct MCV MCH RDW [place] # (Auto) Seg Neutrophils % Seg Neuts % (Manual) Lymphocytes % (Manual) Monocytes % (Manual) Seg Neutrophils # Seg Neutrophils # Man Lymphocytes # (Manual) Monocytes # (Manual) PT APTT D-Dimer Heparin Anti-Xa Level 0.84 H ABG pH POC ABG pCO2 POC ABG pO2 ABG pO2 ABG Hemoglobin ABG Oxyhemoglobin ABG Sodium ABG Potassium ABG Chloride ABG Glucose Carboxyhemoglobin Sodium Potassium Chloride Carbon Dioxide BUN Creatinine Glucose POC Glucose 268 H 170 H Lactic Acid Calcium Ferritin AST ALT Lactate Dehydrogenase Troponin T Total Protein Albumin HDL Cholesterol Arterial Blood Glucose Arterial Blood Ionized Calcium Urine WBC (Auto)
[2021-06-03] MEDS: SENNOSIDES/DOCUSATE SODIUM 8.6/50 MG TAB FEEDTUBE SCH ×3 (10:59→23:02)
[2021-06-03] MEDS: FAMOTIDINE 20 MG TAB FEEDTUBE SCH ×3 (10:59→23:02)
[2021-06-03] MEDS: INSULIN GLARGINE 100 UNITS/ML SUB-Q SCH (10:59)
[2021-06-03] MEDS: VALSARTAN 160MG TAB PO SCH ×3 (10:59→23:01)
[2021-06-03] MEDS: DOXAZOSIN 1 MG TAB PO SCH ×3 (10:59→23:00)
[2021-06-03] MEDS: levETIRAcetam 500 MG/5 ML ORAL LIQD FEEDTUBE SCH ×3 (10:59→23:01)
--- NOTE | 2021-06-03 11:46 | Progress Note ---
Assessment and Plan Assessment and plan: 65-year-old female, history of nonepileptic spells, PTSD, closed head injury, hypertension, diabetes, CAD, presents to the ED following cardiac arrest. EMS states Patient collapsed and became unresponsive. Patient was pulseless and apneic. Rhythm was asystole. Patient was intubated by EMS. She was given epi x2. ACLS times approximately 10 minutes followed by return of pulses. Accu- Chek in the 200s. With initial rhythm check here in ED, patient was pulseless, so ACLS restarted. Patient has return of pulse and noted to be in atrial fib, initiated on iv keppra and heparin drip. Assessment and plan -- s/p cardiac arrest Pt on NSR on tele, cardiology consulted, ordered 2d echo -- Acute hypoxemic respiratory failure Patient intubated and on ventilatory support. Critical care team consulted. Wean vent as tolerated, daily spontaneous breathing trial, sedation holiday, supportive care, arterial blood gas per protocol. --SIRS, likely from cardiac arrest and seizure s/p abx, all Cx so far neg, monitor off abx --COVID PUI, r/o with negative test --Possible Anoxic brain injury due to cardiac arrest, cont Supportive care, neuro check, ordered MRI brain Consulted Neurology -- Atrial fibrillation with RVR, paroxysmal Cardiology team consulted, continue therapeutic anticoagulation as per cardiology team with heparin drip, supportive care., Rate control. -- Metabolic acidosis IV fluid resuscitation therapy, follow BMP --Hypertension, initiated on antihypertensive, iv hydralazine as needed --Tonic clonic Seizure Neuro check, antiepileptic therapy with Keppra, neuro consult, EEG ordered -- DVT prophylaxis SCD to bilateral lower extremities while in bed, continue therapeutic anticoagulation -- patient is full code, patient son Antwon Higginbotham acknowledges understanding and agreement with care plan, The high probability of a clinically significant, sudden or life threatening deterioration of the [multiple] system(s) required my full and direct attention, intervention and personal management. The aggregate critical care time was [30] minutes. This time is in addition to time spent performing reported procedures but includes the following: [x] Data Review and interpretation [x] Patient assessment and monitoring of vital signs [x] Documentation [x] Medication orders and management Daily clinical course: 05/26/21: Updated family at the bedside, Covid test is negative. Will order EEG and neuro consult. Remains intubated, follow clinically. Sedated on Midazolam and Propofol, just received one dose of Lorazepam for witnessed seizure by RN. NSR now, on heparin drip 05/27/21; remains intubated. pending EEG and neuro eval. wean off vent as tolerated. Continue heparin drip per cardiology, replete potassium yesterday, follow BMP. BP noted to be elevated, next started on antihypertensives. 05/28/21; BP noted to be elevated, initiated on antihypertensive, remains intu bated. Pending neurology evaluation and EEG. Continue supportive care, follow BMP. 05/29/21: Ordered for MRI brain, continue Keppra, pending EEG. Appreciate neuro recommendation. follow BMP, tolerating TF 05/30/21: Patient remains intubated, pending MRI brain, follow neurology recommendation. EEG showed diffuse slowing. 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 off sedation now, cont to follow. gurded prognosis 06/01 -MRI was suggestive of watershed infarct bilaterally and was seen by neurology and recommend to do MRI with gadolinium. Patient is off sedation and still unresponsive. Prognosis is guarded. 06/02 -Continue current management. Prognosis is guarded. Patient needs trach. 06/03 -Patient is unresponsive spite of all sedatives. Prognosis is guarded to poor. Neurology consult appreciated. History Interval history: Patient was seen and evaluated this morning Nursing issues reported overnight Patient was unresponsive Hospitalist Physical - Physical exam Narrative exam: Intubated and on mechanical ventilation. On tube feeding The patient appeared well nourished and normally developed. Vital signs as documented. Head exam is unremarkable. No scleral icterus . Neck is without jugular venous distension, thyromegaly, or carotid bruits. Lungs are clear to auscultation. Cardiac exam reveals regular rate and Rhythm. Abdominal exam reveals normal bowel sounds, nontender, no organomegaly. Extremities are nonedematous and both femoral and pedal pulses are normal. ASSESSMENT RN: Unresponsive - Constitutional Vitals: Temp Pulse Resp BP Pulse Ox 97.6 F 85 23 165/73 100 06/03/21 08:00 06/03/21 11:35 06/03/21 11:35 06/03/21 11:35 06/03/21 11:35 General appearance: Present: mild distress HEART Score - HEART Score Troponin: Troponin T 0.226 ng/mL (0.00-0.029) H* D 05/25/21 15:19 Results - Labs CBC & Chem 7: 06/02/21 02:25 06/02/21 02:25 Labs: Laboratory Last Values WBC 17.4 K/mm3 (4.5-11.0) H 06/02/21 02:25 RBC 3.09 M/mm3 (3.65-5.03) L 06/02/21 02:25 Hgb 10.6 gm/dl (10.1-14.3) 06/02/21 02:25 Hct 31.3 % (30.3-42.9) 06/02/21 02:25 MCV 101 fl (79-97) H 06/02/21 02:25 MCH 34 pg (28-32) H 06/02/21 02:25 MCHC 34 % (30-34) 06/02/21 02:25 RDW 15.5 % (13.2-15.2) H 06/02/21 02:25 Plt Count 235 K/mm3 (140-440) 06/02/21 02:25 Lymph % (Auto) 14.3 % (13.4-35.0) 05/28/21 04:00 Saline % (Auto) 6.9 % (0.0-7.3) 05/28/21 04:00 Eos % (Auto) 0.1 % (0.0-4.3) 05/28/21 04:00 Baso % (Auto) 0.5 % (0.0-1.8) 05/28/21 04:00 Lymph # (Auto) 1.9 K/mm3 (1.2-5.4) 05/28/21 04:00 Saline # (Auto) 0.9 K/mm3 (0.0-0.8) H 05/28/21 04:00 Eos # (Auto) 0.0 K/mm3 (0.0-0.4) 05/28/21 04:00 Baso # (Auto) 0.1 K/mm3 (0.0-0.1) 05/28/21 04:00 Add Manual Diff Complete 06/01/21 04:58 Total Counted 100 06/01/21 04:58 Seg Neutrophils % 78.2 % (40.0-70.0) H 05/28/21 04:00 Seg Neuts % (Manual) 82.0 % (40.0-70.0) H 06/01/21 04:58 Band Neutrophils % 2.0 % 06/01/21 04:58 Lymphocytes % (Manual) 9.0 % (13.4-35.0) L 06/01/21 04:58 Monocytes % (Manual) 7.0 % (0.0-7.3) 06/01/21 04:58 Eosinophils % (Manual) 1.0 % (0.0-4.3) 05/25/21 09: Metamyelocytes % 1.0 % 05/25/21 09: Myelocytes % 2.0 % 05/31/21 04:00 Nucleated RBC % Not Reportable 06/01/21 04:58 Seg Neutrophils # 10.6 K/mm3 (1.8-7.7) H 05/28/21 04:00 Seg Neutrophils # Man 17.0 K/mm3 (1.8-7.7) H 06/01/21 04:58 Band Neutrophils # 0.4 K/mm3 06/01/21 04:58 Lymphocytes # (Manual) 1.9 K/mm3 (1.2-5.4) 06/01/21 04:58 Abs React Lymphs (Man) 0.0 K/mm3 06/01/21 04:58 Monocytes # (Manual) 1.4 K/mm3 (0.0-0.8) H 06/01/21 04:58 Eosinophils # (Manual) 0.0 K/mm3 (0.0-0.4) 06/01/21 04:58 Basophils # (Manual) 0.0 K/mm3 (0.0-0.1) 06/01/21 04:58 Metamyelocytes # 0.0 K/mm3 06/01/21 04:58 Myelocytes # 0.0 K/mm3 06/01/21 04:58 Promyelocytes # 0.0 K/mm3 06/01/21 04:58 Blast Cells # 0.0 K/mm3 06/01/21 04:58 WBC Morphology Not Reportable 06/01/21 04:58 Hypersegmented Neuts Not Reportable 06/01/21 04:58 Hyposegmented Neuts Not Reportable 06/01/21 04:58 Hypogranular Neuts Not Reportable 06/01/21 04:58 Smudge Cells Not Reportable 06/01/21 04:58 Toxic Granulation Not Reportable 06/01/21 04:58 Toxic Vacuolation Not Reportable 06/01/21 04:58 Dohle Bodies Not Reportable 06/01/21 04:58 Pelger-Huet Anomaly Not Reportable 06/01/21 04:58 Peter Rods Not Reportable 06/01/21 04:58 Platelet Estimate Consistent w auto 06/01/21 04:58 Clumped Platelets Not Reportable 06/01/21 04:58 Plt Clumps, EDTA Not Reportable 06/01/21 04:58 Large Platelets Not Reportable 06/01/21 04:58 Giant Platelets Not Reportable 06/01/21 04:58 Platelet Satelliting Not Reportable 06/01/21 04:58 Plt Morphology Comment Not Reportable 06/01/21 04:58 RBC Morphology Normal 06/01/21 04:58 Dimorphic RBCs Not Reportable 06/01/21 04:58 Polychromasia Not Reportable 06/01/21 04:58 Hypochromasia Not Reportable 06/01/21 04:58 Poikilocytosis Not Reportable 06/01/21 04:58 Anisocytosis Not Reportable 06/01/21 04:58 Microcytosis Not Reportable 06/01/21 04:58 Macrocytosis Not Reportable 06/01/21 04:58 Spherocytes Not Reportable 06/01/21 04:58 Pappenheimer Bodies Not Reportable 06/01/21 04:58 Sickle Cells Not Reportable 06/01/21 04:58 Target Cells Not Reportable 06/01/21 04:58 Tear Drop Cells Not Reportable 06/01/21 04:58 Ovalocytes Not Reportable 06/01/21 04:58 Helmet Cells Not Reportable 06/01/21 04:58 [place] Bodies Not Reportable 06/01/21 04:58 [place] Rings Not Reportable 06/01/21 04:58 [place] Cells Not Reportable 06/01/21 04:58 Bite Cells Not Reportable 06/01/21 04:58 Crenated Cell Not Reportable 06/01/21 04:58 Elliptocytes Not Reportable 06/01/21 04:58 Acanthocytes (Spur) Not Reportable 06/01/21 04:58 Rouleaux Not Reportable 06/01/21 04:58 Hemoglobin C Crystals Not Reportable 06/01/21 04:58 Schistocytes Not Reportable 06/01/21 04:58 Malaria parasites Not Reportable 06/01/21 04:58 Shravan Bodies Not Reportable 06/01/21 04:58 Hem Pathologist Commnt No 06/01/21 04:58 PT 15.0 Sec. (12.2-14.9) H 05/25/21 09:21 INR 1.13 (0.87-1.13) 05/25/21 09:21 APTT 44.3 Sec. (24.2-36.6) H 05/25/21 09:21 D-Dimer > 70260 ng/mlDDU (0-234) H 05/25/21 09:21 Heparin Anti-Xa Level 0.84 U.I./ml (0.3-0.7) H 06/03/21 09:10 ABG pH 7.481 (7.320-7.450) H 06/02/21 04:13 POC ABG pCO2 36.9 mmHg (32.0-48.0) 06/02/21 04:13 ABG pCO2 30.3 mm Hg 05/29/21 05:28 POC ABG pO2 80.0 mmHg (83-108) L 06/02/21 04:13 ABG pO2 96.2 mm Hg (80.0-90.0) H 05/29/21 05:28 POC ABG HCO3 26.9 06/02/21 04:13 ABG HCO3 24.0 mmol/L (20.0-26.0) 05/29/21 05:28 ABG O2 Saturation 95.7 (0-100) 06/02/21 04:13 ABG O2 Content 10.3 (0.0-44) 05/29/21 05:28 POC ABG Base Excess 3.4 06/02/21 04:13 ABG Base Excess 1.2 mmol/L (-2.0-3.0) 05/29/21 05:28 ABG Hemoglobin 11.1 (12.0-17.5) L 06/02/21 04:13 ABG Oxyhemoglobin 95.2 (94-98) 06/02/21 04:13 ABG Carboxyhemoglobin 1.6 % (0.0-5.0) 05/29/21 05:28 ABG Methemoglobin 0.3 (0.0-1.5) 06/02/21 04:13 ABG Sodium 131.9 mmol/L (136.0-145.0) L 06/02/21 04:13 ABG Potassium 3.8 mmol/L (3.40-4.50) 06/02/21 04:13 ABG Chloride 98.0 mmol/L (98-107) 06/02/21 04:13 ABG Glucose 231 mg/dL (65-95) H 06/02/21 04:13 Oxyhemoglobin 96.0 % (95.0-99.0) 05/29/21 05:28 Carboxyhemoglobin 0.2 (0.5-1.5) L 06/02/21 04:13 FiO2 30 % 05/29/21 05:28 FiO2 % 30.0 06/02/21 04:13 Sodium 134 mmol/L (137-145) L 06/02/21 02:25 Potassium 3.9 mmol/L (3.6-5.0) 06/02/21 02:25 Chloride 95.8 mmol/L (98-107) L 06/02/21 02:25 Carbon Dioxide 24 mmol/L (22-30) 06/02/21 02:25 Anion Gap 18 mmol/L 06/02/21 02:25 BUN 31 mg/dL (7-17) H 06/02/21 02:25 Creatinine 0.5 mg/dL (0.6-1.2) L 06/02/21 02:25 Estimated GFR > 60 ml/min 06/02/21 02:25 BUN/Creatinine Ratio 62 % 06/02/21 02:25 Glucose 168 mg/dL (65-100) H 06/02/21 02:25 POC Glucose 170 mg/dL (70-105) H 06/03/21 05:23 Lactic Acid 2.30 mmol/L (0.7-2.0) H* 05/26/21 05:49 Calcium 8.7 mg/dL (8.4-10.2) 06/02/21 02:25 Ferritin 321.6 ng/mL (10.0-200.0) H 05/25/21 09:21 Total Bilirubin 0.70 mg/dL (0.1-1.2) 05/26/21 05:49 Direct Bilirubin < 0.2 mg/dL (0-0.2) 05/25/21 09:21 Indirect Bilirubin 0.2 mg/dL 05/25/21 09:21 AST 111 units/L (5-40) H 05/26/21 05:49 ALT 97 units/L (7-56) H 05/26/21 05:49 Alkaline Phosphatase 88 units/L (35-129) 05/26/21 05:49 Lactate Dehydrogenase 445 units/L (91-180) H 05/25/21 09:21 Troponin T 0.226 ng/mL (0.00-0.029) H* D 05/25/21 15:19 C-Reactive Protein 0.20 mg/dL (0.00-1.30) 05/25/21 09:21 NT-Pro-B Natriuret Pep 173.2 pg/mL (0-900) 05/25/21 09:21 Total Protein 5.4 g/dL (6.3-8.2) L 05/26/21 05:49 Albumin 3.3 g/dL (3.9-5) L 05/26/21 05:49 Albumin/Globulin Ratio 1.6 % 05/26/21 05:49 Triglycerides 124 mg/dL (2-149) 05/30/21 11:19 Cholesterol 198 mg/dL (50-199) 05/25/21 15:19 LDL Cholesterol Direct 80 mg/dL (50-130) 05/25/21 15:19 HDL Cholesterol 64 mg/dL (40-59) H 05/25/21 15:19 Cholesterol/HDL Ratio 3.09 % 05/25/21 15:19 Procalcitonin < 0.05 ng/mL (<0.15) 05/25/21 09:21 Arterial Blood Glucose 231 mg/dL (65-95) H 06/02/21 04:13 Arterial Blood Ionized Calcium 4.6 mg/dL (4.6-5.3) 06/02/21 04:13 Urine Color Straw (Yellow) 05/25/21 10:42 Urine Turbidity Clear (Clear) 05/25/21 10:42 Urine pH 6.0 (5.0-7.0) 05/25/21 10:42 Ur Specific [place] 1.007 (1.003-1.030) 05/25/21 10:42 Urine Protein 100 mg/dl mg/dL (Negative) 05/25/21 10:42 Urine Glucose (UA) >=500 mg/dL (Negative) 05/25/21 10:42 Urine Ketones Neg mg/dL (Negative) 05/25/21 10:42 Urine Blood Mod (Negative) 05/25/21 10:42 Urine Nitrite Neg (Negative) 05/25/21 10:42 Ur Reducing Substances Not Reportable 05/25/21 10:42 Urine Bilirubin Neg (Negative) 05/25/21 10:42 Urine Ictotest Not Reportable 05/25/21 10:42 Urine Urobilinogen < 2.0 mg/dL (<2.0) 05/25/21 10:42 Ur Leukocyte Esterase Neg (Negative) 05/25/21 10:42 Urine WBC (Auto) 11.0 /HPF (0.0-6.0) H 05/25/21 10:42 Urine RBC (Auto) 1.0 /HPF (0.0-6.0) 05/25/21 10:42 U Epithel Cells (Auto) < 1.0 /HPF (0-13.0) 05/25/21 10:42 Urine Bacteria (Auto) 4+ /HPF (Negative) 05/25/21 10:42 Urine Mucus Few /HPF 05/25/21 10:42 Coronavirus (PCR) Negative (Negative) 05/30/21 08:15 Blood Type O POSITIVE 05/25/21 14:07 Antibody Screen Negative 05/25/21 14:07 Tan/IV: Voiding Method External Female Catheter Active Medications - Current Medications Current Medications: Generic Name Dose Route Start Last Admin Trade Name Freq PRN Reason Stop Dose Admin Acetaminophen 650 mg 05/25/21 13:48 05/28/21 04:14 Acetaminophen 325 Mg Tab PO 650 mg Q6H PRN Administration Pain MILD(1-3)/Fever >100.5/SOTOMAYOR Lipase/Protease/Amylase 1 each 05/26/21 10:00 Lipase 10,500/Protease 25,000/Amylase 43,750 (Units) Dr Munguia FEEDTUBE PRN PRN For Clogged Feeding Tube Dextrose 50 ml 05/28/21 14:28 Dextrose 50% In Water (25gm) 50 Ml Syringe IV Q30MIN PRN Hypoglycemia Protocol Doxazosin Mesylate 2 mg 06/01/21 12:00 06/02/21 21:53 Doxazosin 1 Mg Tab PO 2 mg BID ABDIRAHMAN Administration Famotidine 20 mg 05/29/21 10:00 06/02/21 21:53 Famotidine 20 Mg Tab FEEDTUBE 20 mg BID ABDIRAHMAN Administration Glycopyrrolate 2 mg 06/01/21 09:00 06/03/21 08:33 Glycopyrrolate 2 Mg Tab PO 2 mg TID ABDIRAHMAN Administration Heparin Sodium (Porcine) 2,700 unit 05/25/21 13:41 05/30/21 17:46 Heparin 10,000 Units/10 Ml Vial 40 unit/kg (2700 unit) 2,520 unit IV Administration Q6H PRN Anti-Xa Assay < 0.1 units/ml Hydralazine HCl 10 mg 06/01/21 11:43 Hydralazine 20 Mg/1 Ml Inj IV Q4HR PRN SBP >160 Hydrophilic Ointment 1 applic 05/25/21 19:04 Lip Therapy Vaseline TP Q2HR PRN Dry Lips NORepinephrine/NS 8 MG-250 ML 8 mg in 250 mls @ 3.75 mls/hr 05/25/21 09:30 Norepinephrine/Ns 8 Mg-250 Ml (Double Conc) IV TITRATE ABDIRAHMAN Protocol 2 MCG/MIN Heparin Sodium/Sodium Chloride 25,000 unit in 500 mls @ 20 mls/hr 05/25/21 15:00 06/03/21 07:00 Heparin/ 0.45% Nacl-25,000 Unit/500 Ml IV 1,150 units/hr TITRATE ABDIRAHMAN 23 mls/hr Titration Protocol 1,000 UNITS/HR Propofol 1,000 mg in 100 mls @ 1.89 mls/hr 06/03/21 05:00 06/03/21 08:32 Diprivan 10 Mg/Ml IV 0 mcg/kg/min TITR ABDIRAHMAN 0 mls/hr Titration Protocol 5 MCG/KG/MIN Insulin Glargine 15 units 06/02/21 10:00 06/02/21 09:29 Insulin Glargine 100 Units/Ml SUB-Q 15 units DAILY ABDIRAHMAN Administration Insulin Human Lispro 0 unit 05/29/21 12:00 06/03/21 00:49 Insulin Lispro 100 Unit/Ml SUB-Q 6 unit Q6HR ABDIRAHMAN Administration Protocol Labetalol HCl 200 mg 06/01/21 12:00 06/02/21 21:55 Labetalol 200 Mg Tab PO 200 mg BID ABDIRAHMAN Administration Levetiracetam 250 mg 06/01/21 22:00 06/02/21 21:52 Levetiracetam 500 Mg/5 Ml Oral Liqd FEEDTUBE 250 mg Q12HR ABDIRAHMAN Administration Lorazepam 2 mg 05/25/21 19:46 05/31/21 03:44 Lorazepam 2 Mg/Ml Vial IV 2 mg ONCE PRN Administration Seizure Multi-Ingred Cream/Lotion/Oil/Oint 1 applic 05/25/21 19:04 Mineral Oil/Petrolatum, White Ophth Oint 3.5 Gm OU Q4HR PRN Dry Eye(s) Senna/Docusate Sodium 1 tab 05/25/21 22:00 06/02/21 21:52 Sennosides/Docusate Sodium 8.6/50 Mg Tab FEEDTUBE 1 tab BID ABDIRAHMAN Administration Simple Syrup 15 ml 05/26/21 10:00 Simple Syrup 15 Ml FEEDTUBE PRN PRN Hypoglycemia Simple Syrup 30 ml 05/26/21 10:00 Simple Syrup 15 Ml FEEDTUBE PRN PRN Hypoglycemia Sodium Bicarbonate 325 mg 05/26/21 10:00 Sodium Bicarbonate 325 Mg Tab FEEDTUBE PRN PRN For Clogged Feeding Tube Sodium Chloride 10 ml 05/25/21 22:00 06/02/21 21:55 Sodium Chloride 0.9% 10 Ml Flush Syringe IV 10 ml BID ABDIRAHMAN Administration Sodium Chloride 10 ml 05/25/21 13:48 05/30/21 02:45 Sodium Chloride 0.9% 10 Ml Flush Syringe IV 10 ml PRN PRN Administration LINE FLUSH Valsartan 160 mg 06/01/21 12:00 06/02/21 21:58 Valsartan 160mg Tab PO 160 mg BID ABDIRAHMAN Administration Nutrition/Malnutrition Assess - Dietary Evaluation Nutrition/Malnutrition Findings: Nutrition Notes Start: 05/26/21 09:00 Freq: Status: Active Protocol: Document 06/02/21 11:57 GB (Rec: 06/02/21 12:04 GB [id number]) Nutrition Notes Initial or Follow up Reassessment Current Diagnosis COPD,Diabetes,Sepsis, Hypertension,Respiratory Failure Other Pertinent Diagnosis cardiac arrest, seizure disorder Current Diet NPO, Tube feeding Labs/Tests 06/02: Na 134, BUN 31, Creatinine 0.5, glucose 168 Pertinent Medications NaCl, off sedation 06/01 Height 5 ft 4 in Weight 63 kg [place] Body Weight (kg) 54.54 BMI 23.8 Weight change and time frame 05/25: 67.585kg 05/31: 63 kg change: -4.585kg for -6.7% loss Weight Status Appropriate Subjective/Other Information Vent continues. Daily spontaneous breathing checks for weaning. TF continues. Percent of energy/protein needs met: TF meets 100% estimated energy needs. Burn Absent Trauma Absent GI Symptoms None Food Allergy No Current % PO Other Minimum of two criteria No #1 Nutrition Diagnosis Inadequate oral intake Comments: 06/02: On vent. TF continues. Etiology ARF As Evidenced by Signs and Symptoms pt on vent and unable to consume PO Diagnosis Progress(for reassessment Continues documentation) Is patient on ventilator? Yes Is Patient Ambulatory and/or Out of Bed No REE-([facility]-confined to bed) 1385.676 Kcal/Kg value to use for calculation 23 Approximate Energy Requirements Using 1449 kcal/Kg Calculation Used for Recommendations Kcal/kg Additional Notes Protein: (1-1.5g/kg @63kg) 63- 95g Fluid: 1 ml/kcal or per MD Nutrition Intervention Change Diet Order: Continue NPO Nutrition Support: Vital AF 1.2 at 50 ml/hr Flush 75 ml q4h 06/02: continues Kcal 1,440 Protein (gm) 90 Fat (gm) 65 Fluid (mL) 973 Goal #1 Meet 75% or greater of protein and energy needs via TF Follow-Up By: 06/07/21 Additional Comments Vent status
--- NOTE | 2021-06-03 13:36 | Progress Note ---
Assessment and Plan #Uncontrolled hypertension #Brief sinus pauses on telemetryin setting of sedation and acute illness, do not appear to be hemodynamically significant #Respiratory failure requiring mechanical ventilation #Reported history of atrial fibrillation during ACLS resuscitative effortsno arrhythmia subsequently detected on telemetry #Diabetes BP still elevated. Will increase labetalol. Continue valsartan and doxazosin. Continue telemetry monitoring. Continue supportive care for respiratory failure. Subjective Date of service: 06/03/21 Principal diagnosis: Ac hypoxemic resp failure; Cardiac arrest; Seizures; Sepsis; AMS; A-Fib RVR Interval history: Patient remains intubated and sedated. No cardiac events. Telemetry is reviewed, sinus rhythm, occasional brief sinus pauses Objective Vital Signs Temp Pulse Pulse Pulse Pulse Pulse Pulse 06/03/21 12:00 97.7 F 06/03/21 11:35 85 06/03/21 11:00 82 06/03/21 10:45 82 06/03/21 10:30 83 06/03/21 10:15 83 06/03/21 10:00 84 06/03/21 09:45 83 06/03/21 09:30 85 06/03/21 09:15 85 06/03/21 09:00 86 06/03/21 08:48 84 06/03/21 08:45 82 06/03/21 08:30 78 06/03/21 08:15 79 06/03/21 08:00 97.6 F 78 87 87 87 87 87 06/03/21 07:45 79 06/03/21 07:30 81 06/03/21 07:15 84 06/03/21 07:00 81 06/03/21 06:45 82 06/03/21 06:30 85 06/03/21 06:15 82 06/03/21 06:00 84 06/03/21 05:45 85 06/03/21 05:30 85 06/03/21 05:28 06/03/21 05:15 87 06/03/21 05:00 88 06/03/21 04:45 88 06/03/21 04:30 91 H 06/03/21 04:16 94 H 06/03/21 04:15 90 06/03/21 04:00 97.8 F 92 H 06/03/21 03:45 93 H 06/03/21 03:30 95 H 06/03/21 03:15 95 H 06/03/21 03:00 102 H 06/03/21 02:45 95 H 06/03/21 02:31 93 H 06/03/21 02:15 90 06/03/21 02:00 90 06/03/21 01:45 86 06/03/21 01:30 82 06/03/21 01:15 82 06/03/21 01:01 80 06/03/21 00:45 82 06/03/21 00:30 82 06/03/21 00:15 82 06/03/21 00:00 97.6 F 81 06/02/21 23:45 82 06/02/21 23:30 82 06/02/21 23:28 84 06/02/21 23:15 82 06/02/21 23:00 79 06/02/21 22:45 82 06/02/21 22:41 81 06/02/21 22:30 81 06/02/21 22:15 84 06/02/21 22:00 91 H 06/02/21 21:45 90 06/02/21 21:30 91 H 06/02/21 21:15 89 06/02/21 21:00 90 06/02/21 20:45 89 06/02/21 20:30 90 06/02/21 20:15 88 06/02/21 20:00 86 06/02/21 19:52 86 06/02/21 19:45 86 06/02/21 19:36 97.7 F 06/02/21 19:30 85 06/02/21 19:15 86 06/02/21 19:00 86 06/02/21 18:45 84 06/02/21 18:30 88 06/02/21 18:15 85 06/02/21 18:00 88 06/02/21 17:45 88 06/02/21 17:30 87 06/02/21 17:15 85 06/02/21 17:00 86 06/02/21 16:45 87 06/02/21 16:30 85 06/02/21 16:15 86 06/02/21 16:00 97.4 F L 82 06/02/21 15:52 85 06/02/21 15:45 83 06/02/21 15:30 81 06/02/21 15:15 82 06/02/21 15:00 82 06/02/21 14:45 80 06/02/21 14:30 81 06/02/21 14:15 82 06/02/21 14:00 78 06/02/21 13:45 82 Resp BP Pulse Ox 06/03/21 12:00 06/03/21 11:35 23 165/73 100 06/03/21 11:00 22 163/63 97 06/03/21 10:45 25 H 164/66 97 06/03/21 10:30 24 156/63 96 06/03/21 10:15 22 151/63 96 06/03/21 10:00 25 H 156/62 97 06/03/21 09:45 15 150/62 96 06/03/21 09:30 27 H 153/61 95 06/03/21 09:15 25 H 150/62 95 06/03/21 09:00 26 H 153/65 96 06/03/21 08:48 27 H 149/66 98 06/03/21 08:45 15 149/66 97 06/03/21 08:30 12 139/60 99 06/03/21 08:15 12 141/58 98 06/03/21 08:00 12 143/60 98 06/03/21 07:45 12 138/60 99 06/03/21 07:30 12 133/59 98 06/03/21 07:15 14 136/59 100 06/03/21 07:00 13 136/59 98 06/03/21 06:45 14 129/54 98 06/03/21 06:30 13 140/58 97 06/03/21 06:15 14 137/54 98 06/03/21 06:00 14 133/61 98 06/03/21 05:45 14 140/56 99 06/03/21 05:30 14 139/58 99 06/03/21 05:28 38 H 06/03/21 05:15 14 139/60 99 06/03/21 05:00 15 144/60 99 06/03/21 04:45 17 143/60 98 06/03/21 04:30 21 149/65 98 06/03/21 04:16 143/61 100 06/03/21 04:15 26 H 143/61 97 06/03/21 04:00 16 141/62 100 09/25/21 03:45 17 142/65 95 06/03/21 03:30 50 H 121/59 90 06/03/21 03:15 61 H 111/56 96 06/03/21 03:00 30 H 177/66 91 06/03/21 02:45 37 H 177/64 89 06/03/21 02:31 32 H 177/64 88 06/03/21 02:15 18 138/65 94 06/03/21 02:00 34 H 161/75 99 06/03/21 01:45 31 H 155/68 100 06/03/21 01:30 31 H 155/68 98 06/03/21 01:15 30 H 157/77 98 06/03/21 01:01 19 157/73 98 06/03/21 00:45 25 H 162/74 100 06/03/21 00:30 19 162/74 95 06/03/21 00:15 14 162/75 96 06/03/21 00:00 17 156/69 98 06/02/21 23:45 29 H 145/68 95 06/02/21 23:30 20 149/66 95 06/02/21 23:28 142/69 98 06/02/21 23:15 22 160/69 95 06/02/21 23:00 17 142/69 100 06/02/21 22:45 15 145/66 98 06/02/21 22:41 18 147/61 97 06/02/21 22:30 21 147/61 94 06/02/21 22:15 18 147/63 95 06/02/21 22:00 15 100 06/02/21 21:45 14 162/66 99 06/02/21 21:30 16 166/68 99 06/02/21 21:15 11 L 158/67 99 06/02/21 21:00 17 176/69 99 06/02/21 20:45 16 164/73 99 06/02/21 20:30 18 169/70 99 06/02/21 20:15 16 164/69 99 06/02/21 20:00 15 176/71 95 06/02/21 19:52 165/69 100 06/02/21 19:45 16 165/69 99 06/02/21 19:36 06/02/21 19:30 17 161/68 99 06/02/21 19:15 19 164/72 100 06/02/21 19:00 16 159/75 99 06/02/21 18:45 14 152/65 99 06/02/21 18:30 17 163/70 100 06/02/21 18:15 13 154/66 100 06/02/21 18:00 18 174/70 100 06/02/21 17:45 19 153/75 99 06/02/21 17:30 19 165/72 99 06/02/21 17:15 19 164/76 99 06/02/21 17:00 16 165/71 99 06/02/21 16:45 20 173/74 98 06/02/21 16:30 20 162/75 99 06/02/21 16:15 19 178/70 98 06/02/21 16:00 13 177/72 100 06/02/21 15:52 167/77 100 06/02/21 15:45 26 H 167/77 98 06/02/21 15:30 21 166/74 98 06/02/21 15:15 25 H 167/75 98 06/02/21 15:00 25 H 161/74 98 06/02/21 14:45 29 H 170/77 98 06/02/21 14:30 18 166/74 99 06/02/21 14:15 24 161/75 99 06/02/21 14:00 22 154/71 99 06/02/21 13:45 29 H 162/77 99 - Physical Examination Narrative exam: Gen-intubated and sedated MouthET tube in place Neck-supple, no JVD CV-RRR, no murmurs Lungs-mechanical breath sounds bilaterally Abd-soft/nt/nd, obese Ext-warm to touch, trace pedal edema Neuro-eyes open but noncommunicative, sedated Psych-not tested General: Other (Unresponsive, on the vent) HEENT: Positive: Other (Pupils for) Neck: Positive: neck supple Neuro: Positive: Weakness (Unresponsive, on the vent) Abdomen: Positive: Soft Skin: Positive: Clear Extremities: Absent: edema - Allied health notes Allied health notes reviewed: nursing
--- NOTE | 2021-06-03 14:47 | Progress Note ---
Assessment and Plan Acute hypoxemic respiratory failure on MVS Cardiopulmonary arrest wtih ROSC Seizure disorder Sepsis Toxic metabolic encephalopathy, possible anoxia Atrial fibrillation with RVR Metabolic acidosis Bilateral lower lobe infiltrates - Reglan added (low dose) - get KUB - RT asked to place bite-block - scheduled oral Hydralazine in addition to prn IV - continue care as below otherwise; - will likely need trach for safe liberation from MVS except there is significant improvement in mental status - continue scopolamine for secretion control - continue Keppra as AED - daily SAT and SBT assessment as tolerated - continue to wean supplemental oxygen for target O2 sat's > 90% acutely - VAP bundle addressed - continue lung protective strategies - continue bronchodilators with pulmonary hygiene per RT - wean per pulmonary driven protocols otherwise - continue accuchecks with glycemic control per SSI (While critically ill target blood glucose of 140-180 mg/dL; avoid hypoglycemia) - sedation prn for target RASS 0 to -1 - avoid nephrotoxins, renally dose all medications - continue to avoid benzodiazepine's, reduce the possibility of delirium - AB's per ID rec's - prn analgesia per CPOT score - Maintenance of sleep-wake cycle, avoid delirium - continue enteral nutritional support at goal rate as tolerated - G.I. & VTE prophylaxis - PT/OT/ROM exercises - continue mobility protocols for pressure ulcer prophylaxis - Monitor hemodynamics closely - continue other care per attending / other consultants - discharge planning ongoing concurrently COVID SPECIFIC INTERVENTIONS - COVID-19 PCR negative .... Re-evaluate in am & prn CONDITION: CRITICAL PROGNOSIS: GUARDED CODE STATUS: FULL CODE The high probability of a clinically significant, sudden or life-threatening deterioration of the [respiratory, cardiovascular & neurologic] system(s) required my full and direct attention, intervention and personal management. The aggregate critical care time was [37] minutes without overlap. Time includes spent on; [x] Data Review and interpretation [x] Patient assessment and monitoring of vital signs [x] Documentation [x] Medication orders and management Subjective Date of service: 06/03/21 Principal diagnosis: Ac hypoxemic resp failure; Cardiac arrest; Seizures; Sepsis; AMS; A-Fib RVR Interval history: Patient is seen today for: Acute hypoxemic respiratory failure; Cardiac arrest wtih ROSC; Seizure disorder; Sepsis; AMS; A-Fib with RVR Seen and examined at bedside; 24hour events reviewed; nursing and respiratory care staff consulted; no adverse overnight events reported to me; resting in bed; remains on MVS; tube feeds held overnight re: high residuals per RN; No emesis reported; no high grade fevers Objective Vital Signs - 12hr 06/03/21 06/03/21 06/03/21 02:45 03:00 03:15 Temperature Pulse Rate 95 H 102 H 95 H Pulse Rate [ From Monitor] Pulse Rate [ Left Dorsalis Pedis] Pulse Rate [ Left Radial] Pulse Rate [ Right Dorsalis Pedis] Pulse Rate [ Right Radial] Respiratory 37 H 30 H 61 H Rate Blood Pressure 177/64 177/66 111/56 O2 Sat by Pulse 89 91 96 Oximetry 06/03/21 06/03/21 06/03/21 03:30 03:45 04:00 Temperature 97.8 F Pulse Rate 95 H 93 H 92 H Pulse Rate [ From Monitor] Pulse Rate [ Left Dorsalis Pedis] Pulse Rate [ Left Radial] Pulse Rate [ Right Dorsalis Pedis] Pulse Rate [ Right Radial] Respiratory 50 H 17 16 Rate Blood Pressure 121/59 142/65 141/62 O2 Sat by Pulse 90 95 100 Oximetry 06/03/21 06/03/21 06/03/21 04:15 04:16 04:30 Temperature Pulse Rate 90 94 H 91 H Pulse Rate [ From Monitor] Pulse Rate [ Left Dorsalis Pedis] Pulse Rate [ Left Radial] Pulse Rate [ Right Dorsalis Pedis] Pulse Rate [ Right Radial] Respiratory 26 H 21 Rate Blood Pressure 143/61 143/61 149/65 O2 Sat by Pulse 97 100 98 Oximetry 06/03/21 06/03/21 06/03/21 04:45 05:00 05:15 Temperature Pulse Rate 88 88 87 Pulse Rate [ From Monitor] Pulse Rate [ Left Dorsalis Pedis] Pulse Rate [ Left Radial] Pulse Rate [ Right Dorsalis Pedis] Pulse Rate [ Right Radial] Respiratory 17 15 14 Rate Blood Pressure 143/60 144/60 139/60 O2 Sat by Pulse 98 99 99 Oximetry 06/03/21 06/03/21 06/03/21 05:28 05:30 05:45 Temperature Pulse Rate 85 85 Pulse Rate [ From Monitor] Pulse Rate [ Left Dorsalis Pedis] Pulse Rate [ Left Radial] Pulse Rate [ Right Dorsalis Pedis] Pulse Rate [ Right Radial] Respiratory 38 H 14 14 Rate Blood Pressure 139/58 140/56 O2 Sat by Pulse 99 99 Oximetry 06/03/21 06/03/21 06/03/21 06:00 06:15 06:30 Temperature Pulse Rate 84 82 85 Pulse Rate [ From Monitor] Pulse Rate [ Left Dorsalis Pedis] Pulse Rate [ Left Radial] Pulse Rate [ Right Dorsalis Pedis] Pulse Rate [ Right Radial] Respiratory 14 14 13 Rate Blood Pressure 133/61 137/54 140/58 O2 Sat by Pulse 98 98 97 Oximetry 06/03/21 06/03/21 06/03/21 06:45 07:00 07:15 Temperature Pulse Rate 82 81 84 Pulse Rate [ From Monitor] Pulse Rate [ Left Dorsalis Pedis] Pulse Rate [ Left Radial] Pulse Rate [ Right Dorsalis Pedis] Pulse Rate [ Right Radial] Respiratory 14 13 14 Rate Blood Pressure 129/54 136/59 136/59 O2 Sat by Pulse 98 98 100 Oximetry 06/03/21 06/03/21 06/03/21 07:30 07:45 08:00 Temperature 97.6 F Pulse Rate 81 79 78 Pulse Rate [ 87 From Monitor] Pulse Rate [ 87 Left Dorsalis Pedis] Pulse Rate [ 87 Left Radial] Pulse Rate [ 87 Right Dorsalis Pedis] Pulse Rate [ 87 Right Radial] Respiratory 12 12 12 Rate Blood Pressure 133/59 138/60 143/60 O2 Sat by Pulse 98 99 98 Oximetry 06/03/21 06/03/21 06/03/21 08:15 08:30 08:45 Temperature Pulse Rate 79 78 82 Pulse Rate [ From Monitor] Pulse Rate [ Left Dorsalis Pedis] Pulse Rate [ Left Radial] Pulse Rate [ Right Dorsalis Pedis] Pulse Rate [ Right Radial] Respiratory 12 12 15 Rate Blood Pressure 141/58 139/60 149/66 O2 Sat by Pulse 98 99 97 Oximetry 06/03/21 06/03/21 06/03/21 08:48 09:00 09:15 Temperature Pulse Rate 84 86 85 Pulse Rate [ From Monitor] Pulse Rate [ Left Dorsalis Pedis] Pulse Rate [ Left Radial] Pulse Rate [ Right Dorsalis Pedis] Pulse Rate [ Right Radial] Respiratory 27 H 26 H 25 H Rate Blood Pressure 149/66 153/65 150/62 O2 Sat by Pulse 98 96 95 Oximetry 06/03/21 06/03/21 06/03/21 09:30 09:45 10:00 Temperature Pulse Rate 85 83 84 Pulse Rate [ From Monitor] Pulse Rate [ Left Dorsalis Pedis] Pulse Rate [ Left Radial] Pulse Rate [ Right Dorsalis Pedis] Pulse Rate [ Right Radial] Respiratory 27 H 15 25 H Rate Blood Pressure 153/61 150/62 156/62 O2 Sat by Pulse 95 96 97 Oximetry 06/03/21 06/03/21 06/03/21 10:15 10:30 10:45 Temperature Pulse Rate 83 83 82 Pulse Rate [ From Monitor] Pulse Rate [ Left Dorsalis Pedis] Pulse Rate [ Left Radial] Pulse Rate [ Right Dorsalis Pedis] Pulse Rate [ Right Radial] Respiratory 22 24 25 H Rate Blood Pressure 151/63 156/63 164/66 O2 Sat by Pulse 96 96 97 Oximetry 06/03/21 06/03/21 06/03/21 10:59 11:00 11:35 Temperature Pulse Rate 84 82 85 Pulse Rate [ From Monitor] Pulse Rate [ Left Dorsalis Pedis] Pulse Rate [ Left Radial] Pulse Rate [ Right Dorsalis Pedis] Pulse Rate [ Right Radial] Respiratory 22 23 Rate Blood Pressure 163/66 163/63 165/73 O2 Sat by Pulse 97 100 Oximetry 06/03/21 12:00 Temperature 97.7 F Pulse Rate Pulse Rate [ From Monitor] Pulse Rate [ Left Dorsalis Pedis] Pulse Rate [ Left Radial] Pulse Rate [ Right Dorsalis Pedis] Pulse Rate [ Right Radial] Respiratory Rate Blood Pressure O2 Sat by Pulse Oximetry Constitutional: no acute distress, other (elderly female with mildly increased respiratory effort at rest on MVS) Eyes: non-icteric ENT: oropharynx moist, oropharyngeal exudate pre (clear), other (ETT at 23cm CHAPIN) Neck: supple, no lymphadenopathy Effort: mildly labored Ascultation: Bilateral: diminished breath sounds, rhonchi Percussion: Bilateral: not dull Cardiovascular: irregular rhythm, other (S1,S2) Gastrointestinal: normoactive bowel sounds Integumentary: normal Extremities: no cyanosis, pink and warm, pulses normal, other (Right femoral CVL) Neurologic: pupils equal and round, other (encephalopathic; sedated) Psychiatric: other (unable to assess) CBC and BMP: 06/04/21 05:57 06/04/21 05:57 ABG, PT/INR, D-dimer: ABG ABG pH 7.481 (7.320-7.450) H 06/02/21 04:13 POC ABG pCO2 36.9 mmHg (32.0-48.0) 06/02/21 04:13 ABG pCO2 30.3 mm Hg 05/29/21 05:28 POC ABG pO2 80.0 mmHg (83-108) L 06/02/21 04:13 ABG pO2 96.2 mm Hg (80.0-90.0) H 05/29/21 05:28 POC ABG HCO3 26.9 06/02/21 04:13 ABG O2 Saturation 95.7 (0-100) 06/02/21 04:13 PT/INR, D-dimer PT 15.0 Sec. (12.2-14.9) H 05/25/21 09:21 INR 1.13 (0.87-1.13) 05/25/21 09:21 D-Dimer > 35042 ng/mlDDU (0-234) H 05/25/21 09:21 Abnormal lab findings: Abnormal Labs 05/25/21 05/25/21 05/25/21 09:07 09:21 09:21 WBC 17.1 H RBC Hgb Hct MCV 106 H MCH 33 H RDW 15.6 H Jay # (Auto) Seg Neutrophils % Seg Neuts % (Manual) Lymphocytes % (Manual) Monocytes % (Manual) Seg Neutrophils # Seg Neutrophils # Man 10.1 H Lymphocytes # (Manual) 5.6 H Monocytes # (Manual) PT 15.0 H APTT 44.3 H D-Dimer > 88978 H Heparin Anti-Xa Level ABG pH 7.116 L POC ABG pCO2 POC ABG pO2 ABG pO2 ABG Hemoglobin ABG Oxyhemoglobin 93.7 L ABG Sodium ABG Potassium ABG Chloride ABG Glucose 395 H Carboxyhemoglobin Sodium Potassium Chloride Carbon Dioxide BUN Creatinine Glucose POC Glucose Lactic Acid Calcium Ferritin AST ALT Lactate Dehydrogenase Troponin T Total Protein Albumin HDL Cholesterol Arterial Blood Glucose 395 H Arterial Blood Ionized Calcium 4.4 L Urine WBC (Auto) 05/25/21 05/25/21 05/25/21 09:21 09:21 09:21 WBC RBC Hgb Hct MCV MCH RDW Jay # (Auto) Seg Neutrophils % Seg Neuts % (Manual) Lymphocytes % (Manual) Monocytes % (Manual) Seg Neutrophils # Seg Neutrophils # Man Lymphocytes # (Manual) Monocytes # (Manual) PT APTT D-Dimer Heparin Anti-Xa Level ABG pH POC ABG pCO2 POC ABG pO2 ABG pO2 ABG Hemoglobin ABG Oxyhemoglobin ABG Sodium ABG Potassium ABG Chloride ABG Glucose Carboxyhemoglobin Sodium Potassium Chloride Carbon Dioxide 10 L BUN Creatinine Glucose 423 H 424 H POC Glucose Lactic Acid Calcium 8.2 L Ferritin 321.6 H AST 162 H ALT 119 H Lactate Dehydrogenase 445 H Troponin T Total Protein 5.6 L Albumin 3.2 L HDL Cholesterol Arterial Blood Glucose Arterial Blood Ionized Calcium Urine WBC (Auto) 05/25/21 05/25/21 05/25/21 09:35 10:42 11:12 WBC RBC Hgb Hct MCV MCH RDW Jay # (Auto) Seg Neutrophils % Seg Neuts % (Manual) Lymphocytes % (Manual) Monocytes % (Manual) Seg Neutrophils # Seg Neutrophils # Man Lymphocytes # (Manual) Monocytes # (Manual) PT APTT D-Dimer Heparin Anti-Xa Level ABG pH POC ABG pCO2 POC ABG pO2 ABG pO2 ABG Hemoglobin ABG Oxyhemoglobin ABG Sodium ABG Potassium ABG Chloride ABG Glucose Carboxyhemoglobin Sodium Potassium Chloride Carbon Dioxide BUN Creatinine Glucose POC Glucose Lactic Acid 16.70 H* 7.70 H* Calcium Ferritin AST ALT Lactate Dehydrogenase Troponin T Total Protein Albumin HDL Cholesterol Arterial Blood Glucose Arterial Blood Ionized Calcium Urine WBC (Auto) 11.0 H 05/25/21 05/25/21 05/25/21 14:07 15:19 19:04 WBC RBC Hgb Hct MCV MCH RDW Jay # (Auto) Seg Neutrophils % Seg Neuts % (Manual) Lymphocytes % (Manual) Monocytes % (Manual) Seg Neutrophils # Seg Neutrophils # Man Lymphocytes # (Manual) Monocytes # (Manual) PT APTT D-Dimer Heparin Anti-Xa Level ABG pH POC ABG pCO2 POC ABG pO2 172.2 H ABG pO2 ABG Hemoglobin ABG Oxyhemoglobin 98.7 H ABG Sodium 135.7 L ABG Potassium ABG Chloride ABG Glucose 255 H Carboxyhemoglobin 0.3 L Sodium Potassium Chloride Carbon Dioxide BUN Creatinine Glucose POC Glucose Lactic Acid 3.90 H* Calcium Ferritin AST ALT Lactate Dehydrogenase Troponin T 0.226 H* D Total Protein Albumin HDL Cholesterol 64 H Arterial Blood Glucose 255 H Arterial Blood Ionized Calcium 3.8 L Urine WBC (Auto) 05/25/21 05/25/21 05/26/21 21:16 21:16 04:00 WBC RBC Hgb Hct MCV MCH RDW Jay # (Auto) Seg Neutrophils % Seg Neuts % (Manual) Lymphocytes % (Manual) Monocytes % (Manual) Seg Neutrophils # Seg Neutrophils # Man Lymphocytes # (Manual) Monocytes # (Manual) PT APTT D-Dimer Heparin Anti-Xa Level 1.19 H ABG pH 7.547 H POC ABG pCO2 POC ABG pO2 ABG pO2 ABG Hemoglobin 11.9 L ABG Oxyhemoglobin ABG Sodium 133.2 L ABG Potassium 3.1 L ABG Chloride ABG Glucose 243 H Carboxyhemoglobin 0.3 L Sodium Potassium Chloride Carbon Dioxide BUN Creatinine Glucose POC Glucose Lactic Acid 2.50 H* Calcium Ferritin AST ALT Lactate Dehydrogenase Troponin T Total Protein Albumin HDL Cholesterol Arterial Blood Glucose 243 H Arterial Blood Ionized Calcium Urine WBC (Auto) 05/26/21 05/26/21 05/26/21 05:49 05:49 17:33 WBC RBC Hgb Hct MCV MCH RDW Jay # (Auto) Seg Neutrophils % Seg Neuts % (Manual) Lymphocytes % (Manual) Monocytes % (Manual) Seg Neutrophils # Seg Neutrophils # Man Lymphocytes # (Manual) Monocytes # (Manual) PT APTT D-Dimer Heparin Anti-Xa Level ABG pH POC ABG pCO2 POC ABG pO2 ABG pO2 ABG Hemoglobin ABG Oxyhemoglobin ABG Sodium ABG Potassium ABG Chloride ABG Glucose Carboxyhemoglobin Sodium Potassium Chloride Carbon Dioxide BUN Creatinine Glucose 226 H POC Glucose 156 H Lactic Acid 2.30 H* Calcium 7.2 L Ferritin AST 111 H ALT 97 H Lactate Dehydrogenase Troponin T Total Protein 5.4 L Albumin 3.3 L HDL Cholesterol Arterial Blood Glucose Arterial Blood Ionized Calcium Urine WBC (Auto) 05/27/21 05/27/21 05/27/21 02:11 02:11 02:11 WBC 14.3 H RBC 3.27 L Hgb Hct MCV 99 H MCH 33 H RDW 15.3 H Jay # (Auto) 1.0 H Seg Neutrophils % Seg Neuts % (Manual) Lymphocytes % (Manual) Monocytes % (Manual) Seg Neutrophils # 10.0 H Seg Neutrophils # Man Lymphocytes # (Manual) Monocytes # (Manual) PT APTT D-Dimer Heparin Anti-Xa Level 0.80 H ABG pH POC ABG pCO2 POC ABG pO2 ABG pO2 ABG Hemoglobin ABG Oxyhemoglobin ABG Sodium ABG Potassium ABG Chloride ABG Glucose Carboxyhemoglobin Sodium Potassium 2.9 L* D Chloride Carbon Dioxide 31 H BUN 6 L Creatinine Glucose 215 H POC Glucose Lactic Acid Calcium 8.1 L Ferritin AST ALT Lactate Dehydrogenase Troponin T Total Protein Albumin HDL Cholesterol Arterial Blood Glucose Arterial Blood Ionized Calcium Urine WBC (Auto) 05/27/21 05/27/21 05/27/21 11:24 12:49 18:06 WBC RBC Hgb Hct MCV MCH RDW Jay # (Auto) Seg Neutrophils % Seg Neuts % (Manual) Lymphocytes % (Manual) Monocytes % (Manual) Seg Neutrophils # Seg Neutrophils # Man Lymphocytes # (Manual) Monocytes # (Manual) PT APTT D-Dimer Heparin Anti-Xa Level ABG pH POC ABG pCO2 POC ABG pO2 ABG pO2 ABG Hemoglobin ABG Oxyhemoglobin ABG Sodium ABG Potassium ABG Chloride ABG Glucose Carboxyhemoglobin Sodium Potassium Chloride Carbon Dioxide BUN Creatinine Glucose POC Glucose 151 H 165 H 137 H Lactic Acid Calcium Ferritin AST ALT Lactate Dehydrogenase Troponin T Total Protein Albumin HDL Cholesterol Arterial Blood Glucose Arterial Blood Ionized Calcium Urine WBC (Auto) 05/28/21 05/28/21 05/28/21 04:00 04:00 06:02 WBC 13.5 H RBC 3.05 L Hgb Hct MCV 100 H MCH 34 H RDW Jay # (Auto) 0.9 H Seg Neutrophils % 78.2 H Seg Neuts % (Manual) Lymphocytes % (Manual) Monocytes % (Manual) Seg Neutrophils # 10.6 H Seg Neutrophils # Man Lymphocytes # (Manual) Monocytes # (Manual) PT APTT D-Dimer Heparin Anti-Xa Level ABG pH 7.507 H POC ABG pCO2 POC ABG pO2 ABG pO2 ABG Hemoglobin 10.6 L ABG Oxyhemoglobin ABG Sodium 129.4 L ABG Potassium ABG Chloride ABG Glucose 243 H Carboxyhemoglobin 0.2 L Sodium 136 L D Potassium Chloride Carbon Dioxide BUN Creatinine Glucose 215 H POC Glucose Lactic Acid Calcium Ferritin AST ALT Lactate Dehydrogenase Troponin T Total Protein Albumin HDL Cholesterol Arterial Blood Glucose 243 H Arterial Blood Ionized Calcium 4.1 L Urine WBC (Auto) 05/28/21 05/28/21 05/29/21 11:27 23:02 04:30 WBC RBC Hgb 9.3 L Hct 26.7 L MCV MCH RDW Jay # (Auto) Seg Neutrophils % Seg Neuts % (Manual) Lymphocytes % (Manual) Monocytes % (Manual) Seg Neutrophils # Seg Neutrophils # Man Lymphocytes # (Manual) Monocytes # (Manual) PT APTT D-Dimer Heparin Anti-Xa Level ABG pH POC ABG pCO2 POC ABG pO2 ABG pO2 ABG Hemoglobin ABG Oxyhemoglobin ABG Sodium ABG Potassium ABG Chloride ABG Glucose Carboxyhemoglobin Sodium Potassium Chloride Carbon Dioxide BUN Creatinine Glucose POC Glucose 220 H 212 H Lactic Acid Calcium Ferritin AST ALT Lactate Dehydrogenase Troponin T Total Protein Albumin HDL Cholesterol Arterial Blood Glucose Arterial Blood Ionized Calcium Urine WBC (Auto) 05/29/21 05/29/21 05/29/21 05:02 05:28 12:55 WBC RBC Hgb Hct MCV MCH RDW Jay # (Auto) Seg Neutrophils % Seg Neuts % (Manual) Lymphocytes % (Manual) Monocytes % (Manual) Seg Neutrophils # Seg Neutrophils # Man Lymphocytes # (Manual) Monocytes # (Manual) PT APTT D-Dimer Heparin Anti-Xa Level ABG pH 7.516 H POC ABG pCO2 POC ABG pO2 ABG pO2 96.2 H ABG Hemoglobin 7.5 L ABG Oxyhemoglobin ABG Sodium ABG Potassium ABG Chloride ABG Glucose Carboxyhemoglobin Sodium Potassium Chloride Carbon Dioxide BUN Creatinine Glucose POC Glucose 197 H 251 H Lactic Acid Calcium Ferritin AST ALT Lactate Dehydrogenase Troponin T Total Protein Albumin HDL Cholesterol Arterial Blood Glucose Arterial Blood Ionized Calcium Urine WBC (Auto) 05/29/21 05/29/21 05/30/21 18:23 23:31 04:10 WBC RBC Hgb Hct MCV MCH RDW Jay # (Auto) Seg Neutrophils % Seg Neuts % (Manual) Lymphocytes % (Manual) Monocytes % (Manual) Seg Neutrophils # Seg Neutrophils # Man Lymphocytes # (Manual) Monocytes # (Manual) PT APTT D-Dimer Heparin Anti-Xa Level ABG pH 7.532 H POC ABG pCO2 30.0 L POC ABG pO2 78.5 L ABG pO2 ABG Hemoglobin 11.3 L ABG Oxyhemoglobin ABG Sodium 126.7 L ABG Potassium ABG Chloride 94.0 L ABG Glucose 270 H Carboxyhemoglobin 0.4 L Sodium Potassium Chloride Carbon Dioxide BUN Creatinine Glucose POC Glucose 236 H 252 H Lactic Acid Calcium Ferritin AST ALT Lactate Dehydrogenase Troponin T Total Protein Albumin HDL Cholesterol Arterial Blood Glucose 270 H Arterial Blood Ionized Calcium 4.4 L Urine WBC (Auto) 05/30/21 05/30/21 05/30/21 05:06 06:23 11:15 WBC RBC Hgb Hct MCV MCH RDW Jay # (Auto) Seg Neutrophils % Seg Neuts % (Manual) Lymphocytes % (Manual) Monocytes % (Manual) Seg Neutrophils # Seg Neutrophils # Man Lymphocytes # (Manual) Monocytes # (Manual) PT APTT D-Dimer Heparin Anti-Xa Level ABG pH POC ABG pCO2 POC ABG pO2 ABG pO2 ABG Hemoglobin ABG Oxyhemoglobin ABG Sodium ABG Potassium ABG Chloride ABG Glucose Carboxyhemoglobin Sodium 126 L D Potassium Chloride 91.9 L Carbon Dioxide 20 L D BUN Creatinine 0.4 L Glucose 274 H POC Glucose 242 H 346 H Lactic Acid Calcium Ferritin AST ALT Lactate Dehydrogenase Troponin T Total Protein Albumin HDL Cholesterol Arterial Blood Glucose Arterial Blood Ionized Calcium Urine WBC (Auto) 05/30/21 05/30/21 05/30/21 11:19 11:19 11:19 WBC 18.9 H RBC 3.36 L Hgb Hct MCV 102 H MCH 33 H RDW 15.5 H Jay # (Auto) Seg Neutrophils % Seg Neuts % (Manual) Lymphocytes % (Manual) Monocytes % (Manual) Seg Neutrophils # Seg Neutrophils # Man Lymphocytes # (Manual) Monocytes # (Manual) PT APTT D-Dimer Heparin Anti-Xa Level < 0.10 L ABG pH POC ABG pCO2 POC ABG pO2 ABG pO2 ABG Hemoglobin ABG Oxyhemoglobin ABG Sodium ABG Potassium ABG Chloride ABG Glucose Carboxyhemoglobin Sodium 124 L Potassium Chloride Carbon Dioxide BUN Creatinine Glucose POC Glucose Lactic Acid Calcium Ferritin AST ALT Lactate Dehydrogenase Troponin T Total Protein Albumin HDL Cholesterol Arterial Blood Glucose Arterial Blood Ionized Calcium Urine WBC (Auto) 05/30/21 05/30/21 05/31/21 17:02 23:27 03:37 WBC RBC Hgb Hct MCV MCH RDW Jay # (Auto) Seg Neutrophils % Seg Neuts % (Manual) Lymphocytes % (Manual) Monocytes % (Manual) Seg Neutrophils # Seg Neutrophils # Man Lymphocytes # (Manual) Monocytes # (Manual) PT APTT D-Dimer Heparin Anti-Xa Level ABG pH POC ABG pCO2 POC ABG pO2 ABG pO2 ABG Hemoglobin 11.6 L ABG Oxyhemoglobin ABG Sodium 130.0 L ABG Potassium ABG Chloride 95.0 L ABG Glucose 292 H Carboxyhemoglobin Sodium Potassium Chloride Carbon Dioxide BUN Creatinine Glucose POC Glucose 270 H 237 H Lactic Acid Calcium Ferritin AST ALT Lactate Dehydrogenase Troponin T Total Protein Albumin HDL Cholesterol Arterial Blood Glucose 292 H Arterial Blood Ionized Calcium Urine WBC (Auto) 05/31/21 05/31/21 05/31/21 04:00 04:00 05:20 WBC 20.9 H RBC 3.13 L Hgb Hct MCV 99 H MCH 34 H RDW Jay # (Auto) Seg Neutrophils % Seg Neuts % (Manual) 81.0 H Lymphocytes % (Manual) 8.0 L Monocytes % (Manual) 9.0 H Seg Neutrophils # Seg Neutrophils # Man 16.9 H Lymphocytes # (Manual) Monocytes # (Manual) 1.9 H PT APTT D-Dimer Heparin Anti-Xa Level ABG pH POC ABG pCO2 POC ABG pO2 ABG pO2 ABG Hemoglobin ABG Oxyhemoglobin ABG Sodium ABG Potassium ABG Chloride ABG Glucose Carboxyhemoglobin Sodium 133 L D Potassium Chloride 95.4 L Carbon Dioxide 21 L BUN 30 H Creatinine 0.5 L Glucose 305 H POC Glucose 269 H Lactic Acid Calcium Ferritin AST ALT Lactate Dehydrogenase Troponin T Total Protein Albumin HDL Cholesterol Arterial Blood Glucose Arterial Blood Ionized Calcium Urine WBC (Auto) 05/31/21 05/31/21 05/31/21 11:40 18:16 23:25 WBC RBC Hgb Hct MCV MCH RDW Jay # (Auto) Seg Neutrophils % Seg Neuts % (Manual) Lymphocytes % (Manual) Monocytes % (Manual) Seg Neutrophils # Seg Neutrophils # Man Lymphocytes # (Manual) Monocytes # (Manual) PT APTT D-Dimer Heparin Anti-Xa Level ABG pH POC ABG pCO2 POC ABG pO2 ABG pO2 ABG Hemoglobin ABG Oxyhemoglobin ABG Sodium ABG Potassium ABG Chloride ABG Glucose Carboxyhemoglobin Sodium Potassium Chloride Carbon Dioxide BUN Creatinine Glucose POC Glucose 364 H 250 H 231 H Lactic Acid Calcium Ferritin AST ALT Lactate Dehydrogenase Troponin T Total Protein Albumin HDL Cholesterol Arterial Blood Glucose Arterial Blood Ionized Calcium Urine WBC (Auto) 06/01/21 06/01/21 06/01/21 04:03 04:58 04:58 WBC 20.7 H RBC 3.20 L Hgb Hct MCV 99 H MCH 34 H RDW Jay # (Auto) Seg Neutrophils % Seg Neuts % (Manual) 82.0 H Lymphocytes % (Manual) 9.0 L Monocytes % (Manual) Seg Neutrophils # Seg Neutrophils # Man 17.0 H Lymphocytes # (Manual) Monocytes # (Manual) 1.4 H PT APTT D-Dimer Heparin Anti-Xa Level 1.18 H ABG pH 7.520 H POC ABG pCO2 POC ABG pO2 66.0 L ABG pO2 ABG Hemoglobin ABG Oxyhemoglobin 92.5 L ABG Sodium 133.6 L ABG Potassium ABG Chloride ABG Glucose 250 H Carboxyhemoglobin Sodium Potassium Chloride Carbon Dioxide BUN Creatinine Glucose POC Glucose Lactic Acid Calcium Ferritin AST ALT Lactate Dehydrogenase Troponin T Total Protein Albumin HDL Cholesterol Arterial Blood Glucose 250 H Arterial Blood Ionized Calcium 4.4 L Urine WBC (Auto) 06/01/21 06/01/21 06/01/21 04:58 05:29 11:39 WBC RBC Hgb Hct MCV MCH RDW Jay # (Auto) Seg Neutrophils % Seg Neuts % (Manual) Lymphocytes % (Manual) Monocytes % (Manual) Seg Neutrophils # Seg Neutrophils # Man Lymphocytes # (Manual) Monocytes # (Manual) PT APTT D-Dimer Heparin Anti-Xa Level ABG pH POC ABG pCO2 POC ABG pO2 ABG pO2 ABG Hemoglobin ABG Oxyhemoglobin ABG Sodium ABG Potassium ABG Chloride ABG Glucose Carboxyhemoglobin Sodium 131 L Potassium Chloride 95.7 L Carbon Dioxide BUN 30 H Creatinine 0.5 L Glucose 241 H POC Glucose 215 H 299 H Lactic Acid Calcium Ferritin AST ALT Lactate Dehydrogenase Troponin T Total Protein Albumin HDL Cholesterol Arterial Blood Glucose Arterial Blood Ionized Calcium Urine WBC (Auto) 06/01/21 06/02/21 06/02/21 18:14 00:12 02:25 WBC 17.4 H RBC 3.09 L Hgb Hct MCV 101 H MCH 34 H RDW 15.5 H Jay # (Auto) Seg Neutrophils % Seg Neuts % (Manual) Lymphocytes % (Manual) Monocytes % (Manual) Seg Neutrophils # Seg Neutrophils # Man Lymphocytes # (Manual) Monocytes # (Manual) PT APTT D-Dimer Heparin Anti-Xa Level ABG pH POC ABG pCO2 POC ABG pO2 ABG pO2 ABG Hemoglobin ABG Oxyhemoglobin ABG Sodium ABG Potassium ABG Chloride ABG Glucose Carboxyhemoglobin Sodium Potassium Chloride Carbon Dioxide BUN Creatinine Glucose POC Glucose 215 H 175 H Lactic Acid Calcium Ferritin AST ALT Lactate Dehydrogenase Troponin T Total Protein Albumin HDL Cholesterol Arterial Blood Glucose Arterial Blood Ionized Calcium Urine WBC (Auto) 06/02/21 06/02/21 06/02/21 02:25 04:13 04:58 WBC RBC Hgb Hct MCV MCH RDW Jay # (Auto) Seg Neutrophils % Seg Neuts % (Manual) Lymphocytes % (Manual) Monocytes % (Manual) Seg Neutrophils # Seg Neutrophils # Man Lymphocytes # (Manual) Monocytes # (Manual) PT APTT D-Dimer Heparin Anti-Xa Level ABG pH 7.481 H POC ABG pCO2 POC ABG pO2 80.0 L ABG pO2 ABG Hemoglobin 11.1 L ABG Oxyhemoglobin ABG Sodium 131.9 L ABG Potassium ABG Chloride ABG Glucose 231 H Carboxyhemoglobin 0.2 L Sodium 134 L Potassium Chloride 95.8 L Carbon Dioxide BUN 31 H Creatinine 0.5 L Glucose 168 H POC Glucose 230 H Lactic Acid Calcium Ferritin AST ALT Lactate Dehydrogenase Troponin T Total Protein Albumin HDL Cholesterol Arterial Blood Glucose 231 H Arterial Blood Ionized Calcium Urine WBC (Auto) 06/02/21 06/02/21 06/02/21 11:27 17:47 23:53 WBC RBC Hgb Hct MCV MCH RDW Jay # (Auto) Seg Neutrophils % Seg Neuts % (Manual) Lymphocytes % (Manual) Monocytes % (Manual) Seg Neutrophils # Seg Neutrophils # Man Lymphocytes # (Manual) Monocytes # (Manual) PT APTT D-Dimer Heparin Anti-Xa Level 0.80 H ABG pH POC ABG pCO2 POC ABG pO2 ABG pO2 ABG Hemoglobin ABG Oxyhemoglobin ABG Sodium ABG Potassium ABG Chloride ABG Glucose Carboxyhemoglobin Sodium Potassium Chloride Carbon Dioxide BUN Creatinine Glucose POC Glucose 259 H 297 H Lactic Acid Calcium Ferritin AST ALT Lactate Dehydrogenase Troponin T Total Protein Albumin HDL Cholesterol Arterial Blood Glucose Arterial Blood Ionized Calcium Urine WBC (Auto) 06/03/21 06/03/21 06/03/21 00:05 05:23 09:10 WBC RBC Hgb Hct MCV MCH RDW Jay # (Auto) Seg Neutrophils % Seg Neuts % (Manual) Lymphocytes % (Manual) Monocytes % (Manual) Seg Neutrophils # Seg Neutrophils # Man Lymphocytes # (Manual) Monocytes # (Manual) PT APTT D-Dimer Heparin Anti-Xa Level 0.84 H ABG pH POC ABG pCO2 POC ABG pO2 ABG pO2 ABG Hemoglobin ABG Oxyhemoglobin ABG Sodium ABG Potassium ABG Chloride ABG Glucose Carboxyhemoglobin Sodium Potassium Chloride Carbon Dioxide BUN Creatinine Glucose POC Glucose 268 H 170 H Lactic Acid Calcium Ferritin AST ALT Lactate Dehydrogenase Troponin T Total Protein Albumin HDL Cholesterol Arterial Blood Glucose Arterial Blood Ionized Calcium Urine WBC (Auto) 06/03/21 12:06 WBC RBC Hgb Hct MCV MCH RDW Jay # (Auto) Seg Neutrophils % Seg Neuts % (Manual) Lymphocytes % (Manual) Monocytes % (Manual) Seg Neutrophils # Seg Neutrophils # Man Lymphocytes # (Manual) Monocytes # (Manual) PT APTT D-Dimer Heparin Anti-Xa Level ABG pH POC ABG pCO2 POC ABG pO2 ABG pO2 ABG Hemoglobin ABG Oxyhemoglobin ABG Sodium ABG Potassium ABG Chloride ABG Glucose Carboxyhemoglobin Sodium Potassium Chloride Carbon Dioxide BUN Creatinine Glucose POC Glucose 275 H Lactic Acid Calcium Ferritin AST ALT Lactate Dehydrogenase Troponin T Total Protein Albumin HDL Cholesterol Arterial Blood Glucose Arterial Blood Ionized Calcium Urine WBC (Auto) Chest x-ray: other (none today) Allied health notes reviewed: nursing
--- NOTE | 2021-06-03 16:02 | XRay Report ---
ABDOMEN 1 VIEW INDICATION / CLINICAL INFORMATION: distention. COMPARISON: 05/31/2021 FINDINGS: TUBES / LINES: Enteric tube with tip in the distal stomach.. BOWEL GAS PATTERN: No significant abnormality. FREE AIR / EXTRALUMINAL GAS: None seen. ADDITIONAL FINDINGS: No significant additional findings. IMPRESSION: 1. No significant abnormality. Signer Name: Gorge Ballesteros MD Signed: 06/03/2021 3:57 PM Workstation Name: [id number]
[2021-06-03] MEDS: hydrALAZINE 25 MG TAB PO SCH ×2 (20:32→23:00)
[2021-06-04] MEDS: HEPARIN/ 0.45% NACL DRIP 25,000 UNIT/500 ML BAG IV SCH (01:45)
[2021-06-04] MEDS: METOCLOPRAMIDE 10 MG/2 ML INJ IV SCH ×3 (03:55→15:56)
[2021-06-04] MEDS: hydrALAZINE 25 MG TAB PO SCH ×4 (03:55→22:53)
[2021-06-04] MEDS: INSULIN LISPRO 100 UNIT/ML SUB-Q SCH ×5 (05:04→18:10)
[2021-06-04 06:24] LABS: Hematocrit 28.4 % (30.3-42.9); Hemoglobin 9.6 gm/dl (10.1-14.3); Mean Corpuscular HGB Conc 34 % (30-34); Mean Corpuscular Volume 100 fl (79-97); Platelet Count 262 K/mm3 (140-440); Red Blood Count 2.83 M/mm3 (3.65-5.03); Red Cell Distribution Width 15.5 % (13.2-15.2)
[2021-06-04 06:46] LABS: BUN/Creatinine Ratio 64; Blood Urea Nitrogen 51 mg/dL (7-17); Calcium 8.6 mg/dL (8.4-10.2); Hemolysis Index 10
[2021-06-04 08:34] LABS: Band Neutrophils # (Manual) 0.7 K/mm3; Myelocytes # (Manual) 0.2 K/mm3; Platelet Estimate Consistent w Auto; RBC Morphology Normal; Total Cells Counted 100
--- NOTE | 2021-06-04 09:42 | Progress Note ---
Assessment and Plan Assessment and plan: 65-year-old female, history of nonepileptic spells, PTSD, closed head injury, hypertension, diabetes, CAD, presents to the ED following cardiac arrest. EMS states Patient collapsed and became unresponsive. Patient was pulseless and apneic. Rhythm was asystole. Patient was intubated by EMS. She was given epi x2. ACLS times approximately 10 minutes followed by return of pulses. Accu- Chek in the 200s. With initial rhythm check here in ED, patient was pulseless, so ACLS restarted. Patient has return of pulse and noted to be in atrial fib, initiated on iv keppra and heparin drip. Assessment and plan -- s/p cardiac arrest Pt on NSR on tele, cardiology consulted, ordered 2d echo -- Acute hypoxemic respiratory failure Patient intubated and on ventilatory support. Critical care team consulted. Wean vent as tolerated, daily spontaneous breathing trial, sedation holiday, supportive care, arterial blood gas per protocol. --SIRS, likely from cardiac arrest and seizure s/p abx, all Cx so far neg, monitor off abx --COVID PUI, r/o with negative test --Possible Anoxic brain injury due to cardiac arrest, cont Supportive care, neuro check, ordered MRI brain Consulted Neurology -- Atrial fibrillation with RVR, paroxysmal Cardiology team consulted, continue therapeutic anticoagulation as per cardiology team with heparin drip, supportive care., Rate control. -- Metabolic acidosis IV fluid resuscitation therapy, follow BMP --Hypertension, initiated on antihypertensive, iv hydralazine as needed --Tonic clonic Seizure Neuro check, antiepileptic therapy with Keppra, neuro consult, EEG ordered -- DVT prophylaxis SCD to bilateral lower extremities while in bed, continue therapeutic anticoagulation -- patient is full code, patient son Antwon Higginbotham acknowledges understanding and agreement with care plan, The high probability of a clinically significant, sudden or life threatening deterioration of the [multiple] system(s) required my full and direct attention, intervention and personal management. The aggregate critical care time was [30] minutes. This time is in addition to time spent performing reported procedures but includes the following: [x] Data Review and interpretation [x] Patient assessment and monitoring of vital signs [x] Documentation [x] Medication orders and management Daily clinical course: 05/26/21: Updated family at the bedside, Covid test is negative. Will order EEG and neuro consult. Remains intubated, follow clinically. Sedated on Midazolam and Propofol, just received one dose of Lorazepam for witnessed seizure by RN. NSR now, on heparin drip 05/27/21; remains intubated. pending EEG and neuro eval. wean off vent as tolerated. Continue heparin drip per cardiology, replete potassium yesterday, follow BMP. BP noted to be elevated, next started on antihypertensives. 05/28/21; BP noted to be elevated, initiated on antihypertensive, remains intu bated. Pending neurology evaluation and EEG. Continue supportive care, follow BMP. 05/29/21: Ordered for MRI brain, continue Keppra, pending EEG. Appreciate neuro recommendation. follow BMP, tolerating TF 05/30/21: Patient remains intubated, pending MRI brain, follow neurology recommendation. EEG showed diffuse slowing. 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 off sedation now, cont to follow. gurded prognosis 06/01 -MRI was suggestive of watershed infarct bilaterally and was seen by neurology and recommend to do MRI with gadolinium. Patient is off sedation and still unresponsive. Prognosis is guarded. 06/02 -Continue current management. Prognosis is guarded. Patient needs trach. 06/03 -Patient is unresponsive despite off all sedatives. Prognosis is guarded to poor. Neurology consult appreciated. 06/04 -Patient is unresponsive. Patient is off sedatives. Blood sugar is uncontrolled and I adjusted her insulin. Neurology consult appreciated. Prognosis is guarded to poor. History Interval history: Patient was seen and evaluated this morning Nursing issues reported overnight Patient was unresponsive Hospitalist Physical - Physical exam Narrative exam: Intubated and on mechanical ventilation. On tube feeding The patient appeared well nourished and normally developed. Vital signs as documented. Head exam is unremarkable. No scleral icterus . Neck is without jugular venous distension, thyromegaly, or carotid bruits. Lungs are clear to auscultation. Cardiac exam reveals regular rate and Rhythm. Abdominal exam reveals normal bowel sounds, nontender, no organomegaly. Extremities are nonedematous and both femoral and pedal pulses are normal. [employer]: Unresponsive - Constitutional Vitals: Temp Pulse Resp BP Pulse Ox 97.9 F 85 23 151/58 99 06/04/21 08:00 06/04/21 08:20 06/04/21 08:20 06/04/21 08:20 06/04/21 08:20 General appearance: Present: mild distress HEART Score - HEART Score Troponin: Troponin T 0.226 ng/mL (0.00-0.029) H* D 05/25/21 15:19 Results - Labs CBC & Chem 7: 06/04/21 05:57 06/04/21 05:57 Labs: Laboratory Last Values WBC 17.8 K/mm3 (4.5-11.0) H 06/04/21 05:57 RBC 2.83 M/mm3 (3.65-5.03) L 06/04/21 05:57 Hgb 9.6 gm/dl (10.1-14.3) L 06/04/21 05:57 Hct 28.4 % (30.3-42.9) L 06/04/21 05:57 MCV 100 fl (79-97) H 06/04/21 05:57 MCH 34 pg (28-32) H 06/04/21 05:57 MCHC 34 % (30-34) 06/04/21 05:57 RDW 15.5 % (13.2-15.2) H 06/04/21 05:57 Plt Count 262 K/mm3 (140-440) 06/04/21 05:57 Lymph % (Auto) 14.3 % (13.4-35.0) 05/28/21 04:00 [place] % (Auto) 6.9 % (0.0-7.3) 05/28/21 04:00 Eos % (Auto) 0.1 % (0.0-4.3) 05/28/21 04:00 Baso % (Auto) 0.5 % (0.0-1.8) 05/28/21 04:00 Lymph # (Auto) 1.9 K/mm3 (1.2-5.4) 05/28/21 04:00 [place] # (Auto) 0.9 K/mm3 (0.0-0.8) H 05/28/21 04:00 Eos # (Auto) 0.0 K/mm3 (0.0-0.4) 05/28/21 04:00 Baso # (Auto) 0.1 K/mm3 (0.0-0.1) 05/28/21 04:00 Add Manual Diff Complete 06/04/21 05:57 Total Counted 100 06/04/21 05:57 Seg Neutrophils % 78.2 % (40.0-70.0) H 05/28/21 04:00 Seg Neuts % (Manual) 83.0 % (40.0-70.0) H 06/04/21 05:57 Band Neutrophils % 4.0 % 06/04/21 05:57 Lymphocytes % (Manual) 4.0 % (13.4-35.0) L 06/04/21 05:57 Monocytes % (Manual) 6.0 % (0.0-7.3) 06/04/21 05:57 Eosinophils % (Manual) 2.0 % (0.0-4.3) 06/04/21 05:57 Metamyelocytes % 1.0 % 05/25/21 09: Myelocytes % 1.0 % 06/04/21 05:57 Nucleated RBC % Not Reportable 06/04/21 05:57 Seg Neutrophils # 10.6 K/mm3 (1.8-7.7) H 05/28/21 04:00 Seg Neutrophils # Man 14.8 K/mm3 (1.8-7.7) H 06/04/21 05:57 Band Neutrophils # 0.7 K/mm3 06/04/21 05:57 Lymphocytes # (Manual) 0.7 K/mm3 (1.2-5.4) L 06/04/21 05:57 Abs React Lymphs (Man) 0.0 K/mm3 06/04/21 05:57 Monocytes # (Manual) 1.1 K/mm3 (0.0-0.8) H 06/04/21 05:57 Eosinophils # (Manual) 0.4 K/mm3 (0.0-0.4) 06/04/21 05:57 Basophils # (Manual) 0.0 K/mm3 (0.0-0.1) 06/04/21 05:57 Metamyelocytes # 0.0 K/mm3 06/04/21 05:57 Myelocytes # 0.2 K/mm3 06/04/21 05:57 Promyelocytes # 0.0 K/mm3 06/04/21 05:57 Blast Cells # 0.0 K/mm3 06/04/21 05:57 WBC Morphology Not Reportable 06/04/21 05:57 Hypersegmented Neuts Not Reportable 06/04/21 05:57 Hyposegmented Neuts Not Reportable 06/04/21 05:57 Hypogranular Neuts Not Reportable 06/04/21 05:57 Smudge Cells Not Reportable 06/04/21 05:57 Toxic Granulation Not Reportable 06/04/21 05:57 Toxic Vacuolation Not Reportable 06/04/21 05:57 Dohle Bodies Not Reportable 06/04/21 05:57 Pelger-Huet Anomaly Not Reportable 06/04/21 05:57 Peter Rods Not Reportable 06/04/21 05:57 Platelet Estimate Consistent w auto 06/04/21 05:57 Clumped Platelets Not Reportable 06/04/21 05:57 Plt Clumps, EDTA Not Reportable 06/04/21 05:57 Large Platelets Not Reportable 06/04/21 05:57 Giant Platelets Not Reportable 06/04/21 05:57 Platelet Satelliting Not Reportable 06/04/21 05:57 Plt Morphology Comment Not Reportable 06/04/21 05:57 RBC Morphology Normal 06/04/21 05:57 Dimorphic RBCs Not Reportable 06/04/21 05:57 Polychromasia Not Reportable 06/04/21 05:57 Hypochromasia Not Reportable 06/04/21 05:57 Poikilocytosis Not Reportable 06/04/21 05:57 Anisocytosis Not Reportable 06/04/21 05:57 Microcytosis Not Reportable 06/04/21 05:57 Macrocytosis Not Reportable 06/04/21 05:57 Spherocytes Not Reportable 06/04/21 05:57 Pappenheimer Bodies Not Reportable 06/04/21 05:57 Sickle Cells Not Reportable 06/04/21 05:57 Target Cells Not Reportable 06/04/21 05:57 Tear Drop Cells Not Reportable 06/04/21 05:57 Ovalocytes Not Reportable 06/04/21 05:57 Helmet Cells Not Reportable 06/04/21 05:57 Toribio-Villalba Bodies Not Reportable 06/04/21 05:57 [place] Rings Not Reportable 06/04/21 05:57 Candor Cells Not Reportable 06/04/21 05:57 Bite Cells Not Reportable 06/04/21 05:57 Crenated Cell Not Reportable 06/04/21 05:57 Elliptocytes Not Reportable 06/04/21 05:57 Acanthocytes (Spur) Not Reportable 06/04/21 05:57 Rouleaux Not Reportable 06/04/21 05:57 Hemoglobin C Crystals Not Reportable 06/04/21 05:57 Schistocytes Not Reportable 06/04/21 05:57 Malaria parasites Not Reportable 06/04/21 05:57 Shravan Bodies Not Reportable 06/04/21 05:57 Hem Pathologist Commnt No 06/04/21 05:57 PT 15.0 Sec. (12.2-14.9) H 05/25/21 09:21 INR 1.13 (0.87-1.13) 05/25/21 09:21 APTT 44.3 Sec. (24.2-36.6) H 05/25/21 09:21 D-Dimer > 12983 ng/mlDDU (0-234) H 05/25/21 09:21 Heparin Anti-Xa Level 0.61 U.I./ml (0.3-0.7) 06/03/21 20:48 ABG pH 7.481 (7.320-7.450) H 06/02/21 04:13 POC ABG pCO2 36.9 mmHg (32.0-48.0) 06/02/21 04:13 ABG pCO2 30.3 mm Hg 05/29/21 05:28 POC ABG pO2 80.0 mmHg (83-108) L 06/02/21 04:13 ABG pO2 96.2 mm Hg (80.0-90.0) H 05/29/21 05:28 POC ABG HCO3 26.9 06/02/21 04:13 ABG HCO3 24.0 mmol/L (20.0-26.0) 05/29/21 05:28 ABG O2 Saturation 95.7 (0-100) 06/02/21 04:13 ABG O2 Content 10.3 (0.0-44) 05/29/21 05:28 POC ABG Base Excess 3.4 06/02/21 04:13 ABG Base Excess 1.2 mmol/L (-2.0-3.0) 05/29/21 05:28 ABG Hemoglobin 11.1 (12.0-17.5) L 06/02/21 04:13 ABG Oxyhemoglobin 95.2 (94-98) 06/02/21 04:13 ABG Carboxyhemoglobin 1.6 % (0.0-5.0) 05/29/21 05:28 ABG Methemoglobin 0.3 (0.0-1.5) 06/02/21 04:13 ABG Sodium 131.9 mmol/L (136.0-145.0) L 06/02/21 04:13 ABG Potassium 3.8 mmol/L (3.40-4.50) 06/02/21 04:13 ABG Chloride 98.0 mmol/L (98-107) 06/02/21 04:13 ABG Glucose 231 mg/dL (65-95) H 06/02/21 04:13 Oxyhemoglobin 96.0 % (95.0-99.0) 05/29/21 05:28 Carboxyhemoglobin 0.2 (0.5-1.5) L 06/02/21 04:13 FiO2 30 % 05/29/21 05:28 FiO2 % 30.0 06/02/21 04:13 Sodium 135 mmol/L (137-145) L 06/04/21 05:57 Potassium 4.8 mmol/L (3.6-5.0) D 06/04/21 05:57 Chloride 96.3 mmol/L (98-107) L 06/04/21 05:57 Carbon Dioxide 26 mmol/L (22-30) 06/04/21 05:57 Anion Gap 18 mmol/L 06/04/21 05:57 BUN 51 mg/dL (7-17) H 06/04/21 05:57 Creatinine 0.8 mg/dL (0.6-1.2) D 06/04/21 05:57 Estimated GFR > 60 ml/min 06/04/21 05:57 BUN/Creatinine Ratio 64 % 06/04/21 05:57 Glucose 275 mg/dL (65-100) H 06/04/21 05:57 POC Glucose 257 mg/dL (70-105) H 06/04/21 05:03 Lactic Acid 2.30 mmol/L (0.7-2.0) H* 05/26/21 05:49 Calcium 8.6 mg/dL (8.4-10.2) 06/04/21 05:57 Ferritin 321.6 ng/mL (10.0-200.0) H 05/25/21 09:21 Total Bilirubin 0.70 mg/dL (0.1-1.2) 05/26/21 05:49 Direct Bilirubin < 0.2 mg/dL (0-0.2) 05/25/21 09:21 Indirect Bilirubin 0.2 mg/dL 05/25/21 09:21 AST 111 units/L (5-40) H 05/26/21 05:49 ALT 97 units/L (7-56) H 05/26/21 05:49 Alkaline Phosphatase 88 units/L (35-129) 05/26/21 05:49 Lactate Dehydrogenase 445 units/L (91-180) H 05/25/21 09:21 Troponin T 0.226 ng/mL (0.00-0.029) H* D 05/25/21 15:19 C-Reactive Protein 0.20 mg/dL (0.00-1.30) 05/25/21 09:21 NT-Pro-B Natriuret Pep 173.2 pg/mL (0-900) 05/25/21 09: Total Protein 5.4 g/dL (6.3-8.2) L 05/26/21 05:49 Albumin 3.3 g/dL (3.9-5) L 05/26/21 05:49 Albumin/Globulin Ratio 1.6 % 05/26/21 05:49 Triglycerides 124 mg/dL (2-149) 05/30/21 11:19 Cholesterol 198 mg/dL (50-199) 05/25/21 15:19 LDL Cholesterol Direct 80 mg/dL (50-130) 05/25/21 15:19 HDL Cholesterol 64 mg/dL (40-59) H 05/25/21 15:19 Cholesterol/HDL Ratio 3.09 % 05/25/21 15:19 Procalcitonin < 0.05 ng/mL (<0.15) 05/25/21 09:21 Arterial Blood Glucose 231 mg/dL (65-95) H 06/02/21 04:13 Arterial Blood Ionized Calcium 4.6 mg/dL (4.6-5.3) 06/02/21 04:13 Urine Color Straw (Yellow) 05/25/21 10:42 Urine Turbidity Clear (Clear) 05/25/21 10:42 Urine pH 6.0 (5.0-7.0) 05/25/21 10:42 Ur Specific [place] 1.007 (1.003-1.030) 05/25/21 10:42 Urine Protein 100 mg/dl mg/dL (Negative) 05/25/21 10:42 Urine Glucose (UA) >=500 mg/dL (Negative) 05/25/21 10:42 Urine Ketones Neg mg/dL (Negative) 05/25/21 10:42 Urine Blood Mod (Negative) 05/25/21 10:42 Urine Nitrite Neg (Negative) 05/25/21 10:42 Ur Reducing Substances Not Reportable 05/25/21 10:42 Urine Bilirubin Neg (Negative) 05/25/21 10:42 Urine Ictotest Not Reportable 05/25/21 10:42 Urine Urobilinogen < 2.0 mg/dL (<2.0) 05/25/21 10:42 Ur Leukocyte Esterase Neg (Negative) 05/25/21 10:42 Urine WBC (Auto) 11.0 /HPF (0.0-6.0) H 05/25/21 10:42 Urine RBC (Auto) 1.0 /HPF (0.0-6.0) 05/25/21 10:42 U Epithel Cells (Auto) < 1.0 /HPF (0-13.0) 05/25/21 10:42 Urine Bacteria (Auto) 4+ /HPF (Negative) 05/25/21 10:42 Urine Mucus Few /HPF 05/25/21 10:42 Coronavirus (PCR) Negative (Negative) 05/30/21 08:15 Blood Type O POSITIVE 05/25/21 14:07 Antibody Screen Negative 05/25/21 14:07 Tan/IV: Voiding Method External Female Catheter Active Medications - Current Medications Current Medications: Generic Name Dose Route Start Last Admin Trade Name Freq PRN Reason Stop Dose Admin Acetaminophen 650 mg 05/25/21 13:48 05/28/21 04:14 Acetaminophen 325 Mg Tab PO 650 mg Q6H PRN Administration Pain MILD(1-3)/Fever >100.5/SOTOMAYOR Lipase/Protease/Amylase 1 each 05/26/21 10:00 Lipase 10,500/Protease 25,000/Amylase 43,750 (Units) Dr Munguia FEEDTUBE PRN PRN For Clogged Feeding Tube Dextrose 50 ml 05/28/21 14:28 Dextrose 50% In Water (25gm) 50 Ml Syringe IV Q30MIN PRN Hypoglycemia Protocol Doxazosin Mesylate 2 mg 06/01/21 12:00 06/03/21 23:00 Doxazosin 1 Mg Tab PO Not Given BID ABDIRAHMAN Famotidine 20 mg 05/29/21 10:00 06/03/21 23:02 Famotidine 20 Mg Tab FEEDTUBE Not Given BID ABDIRAHMAN Glycopyrrolate 2 mg 06/01/21 09:00 06/03/21 20:32 Glycopyrrolate 2 Mg Tab PO 2 mg TID ABDIRAHMAN Administration Heparin Sodium (Porcine) 2,700 unit 05/25/21 13:41 05/30/21 17:46 Heparin 10,000 Units/10 Ml Vial 40 unit/kg (2700 unit) 2,520 unit IV Administration Q6H PRN Anti-Xa Assay < 0.1 units/ml Hydralazine HCl 10 mg 06/01/21 11:43 Hydralazine 20 Mg/1 Ml Inj IV Q4HR PRN SBP >160 Hydralazine HCl 50 mg 06/03/21 22:00 06/04/21 05:27 Hydralazine 25 Mg Tab PO Not Given Q8HR ABDIRAHMAN Hydrophilic Ointment 1 applic 05/25/21 19:04 Lip Therapy Vaseline TP Q2HR PRN Dry Lips NORepinephrine/NS 8 MG-250 ML 8 mg in 250 mls @ 3.75 mls/hr 05/25/21 09:30 Norepinephrine/Ns 8 Mg-250 Ml (Double Conc) IV TITRATE ABDIRAHMAN Protocol 2 MCG/MIN Heparin Sodium/Sodium Chloride 25,000 unit in 500 mls @ 20 mls/hr 05/25/21 15:00 06/04/21 01:45 Heparin/ 0.45% Nacl-25,000 Unit/500 Ml IV 1,050 units/hr TITRATE ABDIRAHMAN 21 mls/hr Administration Protocol 1,000 UNITS/HR Propofol 1,000 mg in 100 mls @ 1.89 mls/hr 06/03/21 05:00 06/04/21 07:39 Diprivan 10 Mg/Ml IV 0 mcg/kg/min TITR ABDIRAHMAN 0 mls/hr Titration Protocol 5 MCG/KG/MIN Insulin Glargine 15 units 06/02/21 10:00 06/03/21 10:59 Insulin Glargine 100 Units/Ml SUB-Q 15 units DAILY ABDIRAHMAN Administration Insulin Human Lispro 0 unit 05/29/21 12:00 06/04/21 05:04 Insulin Lispro 100 Unit/Ml SUB-Q 6 unit Q6HR [facility] Administration Protocol Insulin Human Lispro 10 unit 06/04/21 11:30 Insulin Lispro 100 Unit/Ml SUB-Q AC ABDIRAHMAN Labetalol HCl 300 mg 06/03/21 13:40 06/03/21 22:40 Labetalol 100 Mg Tab PO Not Given BID ABDIRAHMAN Levetiracetam 250 mg 06/01/21 22:00 06/03/21 23:01 Levetiracetam 500 Mg/5 Ml Oral Liqd FEEDTUBE Not Given Q12HR ABDIRAHMAN Lorazepam 2 mg 05/25/21 19:46 05/31/21 03:44 Lorazepam 2 Mg/Ml Vial IV 2 mg ONCE PRN Administration Seizure Metoclopramide HCl 5 mg 06/03/21 15:00 06/04/21 03:55 Metoclopramide 10 Mg/2 Ml Inj IV 5 mg Q12H [facility] Administration Multi-Ingred Cream/Lotion/Oil/Oint 1 applic 05/25/21 19:04 Mineral Oil/Petrolatum, White Ophth Oint 3.5 Gm OU Q4HR PRN Dry Eye(s) Senna/Docusate Sodium 1 tab 05/25/21 22:00 06/03/21 23:02 Sennosides/Docusate Sodium 8.6/50 Mg Tab FEEDTUBE Not Given BID ABDIRAHMAN Simple Syrup 15 ml 05/26/21 10:00 Simple Syrup 15 Ml FEEDTUBE PRN PRN Hypoglycemia Simple Syrup 30 ml 05/26/21 10:00 Simple Syrup 15 Ml FEEDTUBE PRN PRN Hypoglycemia Sodium Bicarbonate 325 mg 05/26/21 10:00 Sodium Bicarbonate 325 Mg Tab FEEDTUBE PRN PRN For Clogged Feeding Tube Sodium Chloride 10 ml 05/25/21 22:00 06/03/21 23:00 Sodium Chloride 0.9% 10 Ml Flush Syringe IV Not Given BID ABDIRAHMAN Sodium Chloride 10 ml 05/25/21 13:48 06/04/21 03:57 Sodium Chloride 0.9% 10 Ml Flush Syringe IV 10 ml PRN PRN Administration LINE FLUSH Valsartan 160 mg 06/01/21 12:00 06/03/21 23:01 Valsartan 160mg Tab PO Not Given BID ABDIRAHMAN Nutrition/Malnutrition Assess - Dietary Evaluation Nutrition/Malnutrition Findings: Nutrition Notes Start: 05/26/21 09:00 Freq: Status: Active Protocol: Document 06/02/21 11:57 GB (Rec: 06/02/21 12:04 GB [email or web address]) Nutrition Notes Initial or Follow up Reassessment Current Diagnosis COPD,Diabetes,Sepsis, Hypertension,Respiratory Failure Other Pertinent Diagnosis cardiac arrest, seizure disorder Current Diet NPO, Tube feeding Labs/Tests 06/02: Na 134, BUN 31, Creatinine 0.5, glucose 168 Pertinent Medications NaCl, off sedation 06/01 Height 5 ft 4 in Weight 63 kg [place] Body Weight (kg) 54.54 BMI 23.8 Weight change and time frame 05/25: 67.585kg 05/31: 63 kg change: -4.585kg for -6.7% loss Weight Status Appropriate Subjective/Other Information Vent continues. Daily spontaneous breathing checks for weaning. TF continues. Percent of energy/protein needs met: TF meets 100% estimated energy needs. Burn Absent Trauma Absent GI Symptoms None Food Allergy No Current % PO Other Minimum of two criteria No #1 Nutrition Diagnosis Inadequate oral intake Comments: 06/02: On vent. TF continues. Etiology ARF As Evidenced by Signs and Symptoms pt on vent and unable to consume PO Diagnosis Progress(for reassessment Continues documentation) Is patient on ventilator? Yes Is Patient Ambulatory and/or Out of Bed No REE-([facility]-confined to bed) 1385.676 Kcal/Kg value to use for calculation 23 Approximate Energy Requirements Using 1449 kcal/Kg Calculation Used for Recommendations Kcal/kg Additional Notes Protein: (1-1.5g/kg @63kg) 63- 95g Fluid: 1 ml/kcal or per MD Nutrition Intervention Change Diet Order: Continue NPO Nutrition Support: Vital AF 1.2 at 50 ml/hr Flush 75 ml q4h 06/02: continues Kcal 1,440 Protein (gm) 90 Fat (gm) 65 Fluid (mL) 973 Goal #1 Meet 75% or greater of protein and energy needs via TF Follow-Up By: 06/07/21 Additional Comments Vent status
[2021-06-04] MEDS: DOXAZOSIN 1 MG TAB PO SCH ×2 (09:43→22:52)
[2021-06-04] MEDS: levETIRAcetam 500 MG/5 ML ORAL LIQD FEEDTUBE SCH ×2 (09:43→22:53)
[2021-06-04] MEDS: FAMOTIDINE 20 MG TAB FEEDTUBE SCH ×2 (09:44→22:53)
[2021-06-04] MEDS: GLYCOPYRROLATE 2 MG TAB PO SCH ×3 (09:44→22:52)
[2021-06-04] MEDS: VALSARTAN 160MG TAB PO SCH ×2 (09:44→22:53)
[2021-06-04] MEDS: SENNOSIDES/DOCUSATE SODIUM 8.6/50 MG TAB FEEDTUBE SCH ×2 (09:44→22:53)
[2021-06-04] MEDS: INSULIN GLARGINE 100 UNITS/ML SUB-Q SCH (09:49)
--- NOTE | 2021-06-04 10:02 | Progress Note ---
Assessment and Plan Assessment and Plan - Patient Problems # Anoxic brain injury -Supportive care, -neuro check, -MRI brain is suggestive of water shed Infarct Bilateral -- mostly related to H ypoperfusion -Over all prognosis is quarded to poor. -Off all sedation -today slight improvment in corneal reflex eyes are wonderning in all direction , pupil reactive -still no respond to command no movment is noted to stimuli # Sepsis -Sepsis protocol: Chest x-ray, CBC, CMP, urinalysis, blood culture, monitor urine output every shift, monitor fluid balance, IV fluid resuscitation therapy, maintain mean arterial pressure greater than or equal to 65, IV pressor support as clinically indicated to maintain mean arterial pressure, serial lactic acid level. # Acute hypoxemic respiratory failure -Patient intubated and on ventilatory support. Critical care team consulted. Wean vent as tolerated, daily spontaneous breathing trial, sedation holiday, supportive care, arterial blood gas. # Toxic metabolic encephalopathy -Supportive care, neuro check, CT scan head, treat sepsis, # Cardiac arrest -Patient treated" with ACLS protocol with return of perfusing cardiac rhythm. # Atrial fibrillation with RVR -Cardiology team consulted, continue therapeutic anticoagulation as per cardiology team, supportive care., Rate control. # Metabolic acidosis -IV fluid resuscitation therapy, bicarbonate drip. # Seizure -Neuro check, -antiepileptic therapy with Keppra decrese to 250 IV BID -EEG showed no sign of seizure -MRI brain is noted # DVT prophylaxis -SCD to bilateral lower extremities while in bed, continue therapeutic anticoagulation +++ So far no significant change in status she is off all sedation +++ today corneal reflex is improved bilateral no movement is noted in upper or lower to stimuli prognosis is poor # Advance care planning -Disease education conducted, care plan discussed, diagnoses discussed, poor prognosis discussed, patient is full code, patient son Antwon Higginbotham acknowledges understanding and agreement with care plan, +30 minutes. will sign off Subjective Date of service: 06/04/21 Principal diagnosis: Ac hypoxemic resp failure; Cardiac arrest; Seizures; Sepsis; AMS; A-Fib RVR Interval history: status is unchanged she is with poorly controlled HTN and is with AF on IV heparine no more eye twitching ,not follow command eyes are wondering around may be fixate on when name called ? No reported seizure EEG showed no clear epileptic activity MRI is remarkable for water shed infarct bilateral -- Heparine Ab is elevated Objective - Vital Sign Vital Signs - 12hr 06/03/21 06/03/21 06/03/21 22:00 22:15 22:30 Temperature Pulse Rate 74 77 77 Pulse Rate [ From Monitor] Respiratory 13 14 14 Rate Blood Pressure 129/60 146/63 134/53 O2 Sat by Pulse 99 100 99 Oximetry 06/03/21 06/03/21 06/03/21 22:45 23:00 23:15 Temperature Pulse Rate 76 77 78 Pulse Rate [ From Monitor] Respiratory 14 15 15 Rate Blood Pressure 138/62 141/60 142/63 O2 Sat by Pulse 99 99 99 Oximetry 06/03/21 06/03/21 06/03/21 23:30 23:43 23:45 Temperature Pulse Rate 75 77 79 Pulse Rate [ From Monitor] Respiratory 15 14 Rate Blood Pressure 150/60 150/60 150/63 O2 Sat by Pulse 99 100 99 Oximetry 06/03/21 06/04/21 06/04/21 23:50 00:00 00:07 Temperature 98.3 F Pulse Rate 74 78 82 Pulse Rate [ From Monitor] Respiratory 17 14 18 Rate Blood Pressure 147/61 147/61 O2 Sat by Pulse 100 99 100 Oximetry 06/04/21 06/04/21 06/04/21 00:15 00:30 00:45 Temperature Pulse Rate 80 77 78 Pulse Rate [ From Monitor] Respiratory 14 14 13 Rate Blood Pressure 150/62 142/64 149/62 O2 Sat by Pulse 100 99 98 Oximetry 06/04/21 06/04/21 06/04/21 01:00 01:15 01:30 Temperature Pulse Rate 82 80 81 Pulse Rate [ From Monitor] Respiratory 23 14 14 Rate Blood Pressure 163/66 151/60 148/61 O2 Sat by Pulse 97 98 97 Oximetry 06/04/21 06/04/21 06/04/21 01:40 01:45 02:00 Temperature Pulse Rate 81 81 78 Pulse Rate [ From Monitor] Respiratory 17 16 16 Rate Blood Pressure 151/64 149/60 O2 Sat by Pulse 100 97 98 Oximetry 06/04/21 06/04/21 06/04/21 02:15 02:30 02:45 Temperature Pulse Rate 81 81 79 Pulse Rate [ From Monitor] Respiratory 15 16 14 Rate Blood Pressure 155/66 154/62 144/62 O2 Sat by Pulse 98 97 97 Oximetry 06/04/21 06/04/21 06/04/21 03:00 03:15 03:30 Temperature Pulse Rate 81 80 81 Pulse Rate [ From Monitor] Respiratory 14 14 15 Rate Blood Pressure 154/63 151/60 155/62 O2 Sat by Pulse 97 97 97 Oximetry 06/04/21 06/04/21 06/04/21 03:42 03:45 03:55 Temperature Pulse Rate 81 80 79 Pulse Rate [ 79 From Monitor] Respiratory 19 14 Rate Blood Pressure 153/60 153/60 O2 Sat by Pulse 100 97 Oximetry 06/04/21 06/04/21 06/04/21 04:00 04:15 04:30 Temperature 97.6 F Pulse Rate 78 78 77 Pulse Rate [ From Monitor] Respiratory 15 15 15 Rate Blood Pressure 149/60 145/61 145/62 O2 Sat by Pulse 98 98 99 Oximetry 06/04/21 06/04/21 06/04/21 04:35 04:45 05:00 Temperature Pulse Rate 76 82 78 Pulse Rate [ From Monitor] Respiratory 13 14 Rate Blood Pressure 145/62 148/62 143/58 O2 Sat by Pulse 100 99 98 Oximetry 06/04/21 06/04/21 06/04/21 05:15 05:30 05:45 Temperature Pulse Rate 79 78 78 Pulse Rate [ From Monitor] Respiratory 14 13 14 Rate Blood Pressure 144/57 144/58 145/62 O2 Sat by Pulse 98 98 99 Oximetry 06/04/21 06/04/21 06/04/21 06:00 06:15 06:31 Temperature Pulse Rate 77 76 76 Pulse Rate [ From Monitor] Respiratory 14 14 35 H Rate Blood Pressure 141/56 142/59 140/84 O2 Sat by Pulse 99 99 99 Oximetry 06/04/21 06/04/21 06/04/21 06:40 06:45 07:00 Temperature Pulse Rate 81 78 76 Pulse Rate [ From Monitor] Respiratory 19 15 15 Rate Blood Pressure 153/58 145/57 O2 Sat by Pulse 100 100 99 Oximetry 06/04/21 06/04/21 06/04/21 07:15 07:30 07:45 Temperature Pulse Rate 74 78 80 Pulse Rate [ From Monitor] Respiratory 15 14 15 Rate Blood Pressure 146/58 148/61 156/60 O2 Sat by Pulse 99 99 99 Oximetry 06/04/21 06/04/21 06/04/21 08:00 08:20 09:43 Temperature 97.9 F Pulse Rate 77 85 78 Pulse Rate [ 79 From Monitor] Respiratory 14 23 Rate Blood Pressure 149/63 151/58 158/63 O2 Sat by Pulse 99 99 Oximetry - General Apperance Constitutional: comfortable - EENT EENT: PERRL, mucous membranes moist - Respiratory Respiratory: chest non-tender, lungs clear, rhonchi - Cardiovascular Cardiovascular: other (AF) Extremities: no peripheral edema bilat, no clubbing, cyanosis - Gastrointestinal Gastrointestinal: normoactive bowel sounds - Integumentary Integumentary: normal - Neurologic Cranial nerve examination: PERRL, EOMI, other (eyes wondering around not fixate , pupils reactive , corneal reflex improved today !!!!) Detailed motor examination: other (still with no movment to stimuli ) - Laboratory Findings CBC and BMP: 06/04/21 05:57 06/04/21 05:57 Abnormal Lab Findings: Abnormal Labs 05/25/21 05/25/21 05/25/21 09:07 09:21 09:21 WBC 17.1 H RBC Hgb Hct MCV 106 H MCH 33 H RDW 15.6 H [place] # (Auto) Seg Neutrophils % Seg Neuts % (Manual) Lymphocytes % (Manual) Monocytes % (Manual) Seg Neutrophils # Seg Neutrophils # Man 10.1 H Lymphocytes # (Manual) 5.6 H Monocytes # (Manual) PT 15.0 H APTT 44.3 H D-Dimer > 41797 H Heparin Anti-Xa Level ABG pH 7.116 L POC ABG pCO2 POC ABG pO2 ABG pO2 ABG Hemoglobin ABG Oxyhemoglobin 93.7 L ABG Sodium ABG Potassium ABG Chloride ABG Glucose 395 H Carboxyhemoglobin Sodium Potassium Chloride Carbon Dioxide BUN Creatinine Glucose POC Glucose Lactic Acid Calcium Ferritin AST ALT Lactate Dehydrogenase Troponin T Total Protein Albumin HDL Cholesterol Arterial Blood Glucose 395 H Arterial Blood Ionized Calcium 4.4 L Urine WBC (Auto) 05/25/21 05/25/21 05/25/21 09:21 09:21 09:21 WBC RBC Hgb Hct MCV MCH RDW [place] # (Auto) Seg Neutrophils % Seg Neuts % (Manual) Lymphocytes % (Manual) Monocytes % (Manual) Seg Neutrophils # Seg Neutrophils # Man Lymphocytes # (Manual) Monocytes # (Manual) PT APTT D-Dimer Heparin Anti-Xa Level ABG pH POC ABG pCO2 POC ABG pO2 ABG pO2 ABG Hemoglobin ABG Oxyhemoglobin ABG Sodium ABG Potassium ABG Chloride ABG Glucose Carboxyhemoglobin Sodium Potassium Chloride Carbon Dioxide 10 L BUN Creatinine Glucose 423 H 424 H POC Glucose Lactic Acid Calcium 8.2 L Ferritin 321.6 H AST 162 H ALT 119 H Lactate Dehydrogenase 445 H Troponin T Total Protein 5.6 L Albumin 3.2 L HDL Cholesterol Arterial Blood Glucose Arterial Blood Ionized Calcium Urine WBC (Auto) 05/25/21 05/25/21 05/25/21 09:35 10:42 11:12 WBC RBC Hgb Hct MCV MCH RDW [place] # (Auto) Seg Neutrophils % Seg Neuts % (Manual) Lymphocytes % (Manual) Monocytes % (Manual) Seg Neutrophils # Seg Neutrophils # Man Lymphocytes # (Manual) Monocytes # (Manual) PT APTT D-Dimer Heparin Anti-Xa Level ABG pH POC ABG pCO2 POC ABG pO2 ABG pO2 ABG Hemoglobin ABG Oxyhemoglobin ABG Sodium ABG Potassium ABG Chloride ABG Glucose Carboxyhemoglobin Sodium Potassium Chloride Carbon Dioxide BUN Creatinine Glucose POC Glucose Lactic Acid 16.70 H* 7.70 H* Calcium Ferritin AST ALT Lactate Dehydrogenase Troponin T Total Protein Albumin HDL Cholesterol Arterial Blood Glucose Arterial Blood Ionized Calcium Urine WBC (Auto) 11.0 H 05/25/21 05/25/21 05/25/21 14:07 15:19 19:04 WBC RBC Hgb Hct MCV MCH RDW [place] # (Auto) Seg Neutrophils % Seg Neuts % (Manual) Lymphocytes % (Manual) Monocytes % (Manual) Seg Neutrophils # Seg Neutrophils # Man Lymphocytes # (Manual) Monocytes # (Manual) PT APTT D-Dimer Heparin Anti-Xa Level ABG pH POC ABG pCO2 POC ABG pO2 172.2 H ABG pO2 ABG Hemoglobin ABG Oxyhemoglobin 98.7 H ABG Sodium 135.7 L ABG Potassium ABG Chloride ABG Glucose 255 H Carboxyhemoglobin 0.3 L Sodium Potassium Chloride Carbon Dioxide BUN Creatinine Glucose POC Glucose Lactic Acid 3.90 H* Calcium Ferritin AST ALT Lactate Dehydrogenase Troponin T 0.226 H* D Total Protein Albumin HDL Cholesterol 64 H Arterial Blood Glucose 255 H Arterial Blood Ionized Calcium 3.8 L Urine WBC (Auto) 05/25/21 05/25/21 05/26/21 21:16 21:16 04:00 WBC RBC Hgb Hct MCV MCH RDW [place] # (Auto) Seg Neutrophils % Seg Neuts % (Manual) Lymphocytes % (Manual) Monocytes % (Manual) Seg Neutrophils # Seg Neutrophils # Man Lymphocytes # (Manual) Monocytes # (Manual) PT APTT D-Dimer Heparin Anti-Xa Level 1.19 H ABG pH 7.547 H POC ABG pCO2 POC ABG pO2 ABG pO2 ABG Hemoglobin 11.9 L ABG Oxyhemoglobin ABG Sodium 133.2 L ABG Potassium 3.1 L ABG Chloride ABG Glucose 243 H Carboxyhemoglobin 0.3 L Sodium Potassium Chloride Carbon Dioxide BUN Creatinine Glucose POC Glucose Lactic Acid 2.50 H* Calcium Ferritin AST ALT Lactate Dehydrogenase Troponin T Total Protein Albumin HDL Cholesterol Arterial Blood Glucose 243 H Arterial Blood Ionized Calcium Urine WBC (Auto) 05/26/21 05/26/21 05/26/21 05:49 05:49 17:33 WBC RBC Hgb Hct MCV MCH RDW [place] # (Auto) Seg Neutrophils % Seg Neuts % (Manual) Lymphocytes % (Manual) Monocytes % (Manual) Seg Neutrophils # Seg Neutrophils # Man Lymphocytes # (Manual) Monocytes # (Manual) PT APTT D-Dimer Heparin Anti-Xa Level ABG pH POC ABG pCO2 POC ABG pO2 ABG pO2 ABG Hemoglobin ABG Oxyhemoglobin ABG Sodium ABG Potassium ABG Chloride ABG Glucose Carboxyhemoglobin Sodium Potassium Chloride Carbon Dioxide BUN Creatinine Glucose 226 H POC Glucose 156 H Lactic Acid 2.30 H* Calcium 7.2 L Ferritin AST 111 H ALT 97 H Lactate Dehydrogenase Troponin T Total Protein 5.4 L Albumin 3.3 L HDL Cholesterol Arterial Blood Glucose Arterial Blood Ionized Calcium Urine WBC (Auto) 05/27/21 05/27/21 05/27/21 02:11 02:11 02:11 WBC 14.3 H RBC 3.27 L Hgb Hct MCV 99 H MCH 33 H RDW 15.3 H [place] # (Auto) 1.0 H Seg Neutrophils % Seg Neuts % (Manual) Lymphocytes % (Manual) Monocytes % (Manual) Seg Neutrophils # 10.0 H Seg Neutrophils # Man Lymphocytes # (Manual) Monocytes # (Manual) PT APTT D-Dimer Heparin Anti-Xa Level 0.80 H ABG pH POC ABG pCO2 POC ABG pO2 ABG pO2 ABG Hemoglobin ABG Oxyhemoglobin ABG Sodium ABG Potassium ABG Chloride ABG Glucose Carboxyhemoglobin Sodium Potassium 2.9 L* D Chloride Carbon Dioxide 31 H BUN 6 L Creatinine Glucose 215 H POC Glucose Lactic Acid Calcium 8.1 L Ferritin AST ALT Lactate Dehydrogenase Troponin T Total Protein Albumin HDL Cholesterol Arterial Blood Glucose Arterial Blood Ionized Calcium Urine WBC (Auto) 05/27/21 05/27/21 05/27/21 11:24 12:49 18:06 WBC RBC Hgb Hct MCV MCH RDW [place] # (Auto) Seg Neutrophils % Seg Neuts % (Manual) Lymphocytes % (Manual) Monocytes % (Manual) Seg Neutrophils # Seg Neutrophils # Man Lymphocytes # (Manual) Monocytes # (Manual) PT APTT D-Dimer Heparin Anti-Xa Level ABG pH POC ABG pCO2 POC ABG pO2 ABG pO2 ABG Hemoglobin ABG Oxyhemoglobin ABG Sodium ABG Potassium ABG Chloride ABG Glucose Carboxyhemoglobin Sodium Potassium Chloride Carbon Dioxide BUN Creatinine Glucose POC Glucose 151 H 165 H 137 H Lactic Acid Calcium Ferritin AST ALT Lactate Dehydrogenase Troponin T Total Protein Albumin HDL Cholesterol Arterial Blood Glucose Arterial Blood Ionized Calcium Urine WBC (Auto) 05/28/21 05/28/21 05/28/21 04:00 04:00 06:02 WBC 13.5 H RBC 3.05 L Hgb Hct MCV 100 H MCH 34 H RDW [place] # (Auto) 0.9 H Seg Neutrophils % 78.2 H Seg Neuts % (Manual) Lymphocytes % (Manual) Monocytes % (Manual) Seg Neutrophils # 10.6 H Seg Neutrophils # Man Lymphocytes # (Manual) Monocytes # (Manual) PT APTT D-Dimer Heparin Anti-Xa Level ABG pH 7.507 H POC ABG pCO2 POC ABG pO2 ABG pO2 ABG Hemoglobin 10.6 L ABG Oxyhemoglobin ABG Sodium 129.4 L ABG Potassium ABG Chloride ABG Glucose 243 H Carboxyhemoglobin 0.2 L Sodium 136 L D Potassium Chloride Carbon Dioxide BUN Creatinine Glucose 215 H POC Glucose Lactic Acid Calcium Ferritin AST ALT Lactate Dehydrogenase Troponin T Total Protein Albumin HDL Cholesterol Arterial Blood Glucose 243 H Arterial Blood Ionized Calcium 4.1 L Urine WBC (Auto) 05/28/21 05/28/21 05/29/21 11:27 23:02 04:30 WBC RBC Hgb 9.3 L Hct 26.7 L MCV MCH RDW [place] # (Auto) Seg Neutrophils % Seg Neuts % (Manual) Lymphocytes % (Manual) Monocytes % (Manual) Seg Neutrophils # Seg Neutrophils # Man Lymphocytes # (Manual) Monocytes # (Manual) PT APTT D-Dimer Heparin Anti-Xa Level ABG pH POC ABG pCO2 POC ABG pO2 ABG pO2 ABG Hemoglobin ABG Oxyhemoglobin ABG Sodium ABG Potassium ABG Chloride ABG Glucose Carboxyhemoglobin Sodium Potassium Chloride Carbon Dioxide BUN Creatinine Glucose POC Glucose 220 H 212 H Lactic Acid Calcium Ferritin AST ALT Lactate Dehydrogenase Troponin T Total Protein Albumin HDL Cholesterol Arterial Blood Glucose Arterial Blood Ionized Calcium Urine WBC (Auto) 05/29/21 05/29/21 05/29/21 05:02 05:28 12:55 WBC RBC Hgb Hct MCV MCH RDW [place] # (Auto) Seg Neutrophils % Seg Neuts % (Manual) Lymphocytes % (Manual) Monocytes % (Manual) Seg Neutrophils # Seg Neutrophils # Man Lymphocytes # (Manual) Monocytes # (Manual) PT APTT D-Dimer Heparin Anti-Xa Level ABG pH 7.516 H POC ABG pCO2 POC ABG pO2 ABG pO2 96.2 H ABG Hemoglobin 7.5 L ABG Oxyhemoglobin ABG Sodium ABG Potassium ABG Chloride ABG Glucose Carboxyhemoglobin Sodium Potassium Chloride Carbon Dioxide BUN Creatinine Glucose POC Glucose 197 H 251 H Lactic Acid Calcium Ferritin AST ALT Lactate Dehydrogenase Troponin T Total Protein Albumin HDL Cholesterol Arterial Blood Glucose Arterial Blood Ionized Calcium Urine WBC (Auto) 05/29/21 05/29/21 05/30/21 18:23 23:31 04:10 WBC RBC Hgb Hct MCV MCH RDW [place] # (Auto) Seg Neutrophils % Seg Neuts % (Manual) Lymphocytes % (Manual) Monocytes % (Manual) Seg Neutrophils # Seg Neutrophils # Man Lymphocytes # (Manual) Monocytes # (Manual) PT APTT D-Dimer Heparin Anti-Xa Level ABG pH 7.532 H POC ABG pCO2 30.0 L POC ABG pO2 78.5 L ABG pO2 ABG Hemoglobin 11.3 L ABG Oxyhemoglobin ABG Sodium 126.7 L ABG Potassium ABG Chloride 94.0 L ABG Glucose 270 H Carboxyhemoglobin 0.4 L Sodium Potassium Chloride Carbon Dioxide BUN Creatinine Glucose POC Glucose 236 H 252 H Lactic Acid Calcium Ferritin AST ALT Lactate Dehydrogenase Troponin T Total Protein Albumin HDL Cholesterol Arterial Blood Glucose 270 H Arterial Blood Ionized Calcium 4.4 L Urine WBC (Auto) 05/30/21 05/30/21 05/30/21 05:06 06:23 11:15 WBC RBC Hgb Hct MCV MCH RDW [place] # (Auto) Seg Neutrophils % Seg Neuts % (Manual) Lymphocytes % (Manual) Monocytes % (Manual) Seg Neutrophils # Seg Neutrophils # Man Lymphocytes # (Manual) Monocytes # (Manual) PT APTT D-Dimer Heparin Anti-Xa Level ABG pH POC ABG pCO2 POC ABG pO2 ABG pO2 ABG Hemoglobin ABG Oxyhemoglobin ABG Sodium ABG Potassium ABG Chloride ABG Glucose Carboxyhemoglobin Sodium 126 L D Potassium Chloride 91.9 L Carbon Dioxide 20 L D BUN Creatinine 0.4 L Glucose 274 H POC Glucose 242 H 346 H Lactic Acid Calcium Ferritin AST ALT Lactate Dehydrogenase Troponin T Total Protein Albumin HDL Cholesterol Arterial Blood Glucose Arterial Blood Ionized Calcium Urine WBC (Auto) 05/30/21 05/30/21 05/30/21 11:19 11:19 11:19 WBC 18.9 H RBC 3.36 L Hgb Hct MCV 102 H MCH 33 H RDW 15.5 H [place] # (Auto) Seg Neutrophils % Seg Neuts % (Manual) Lymphocytes % (Manual) Monocytes % (Manual) Seg Neutrophils # Seg Neutrophils # Man Lymphocytes # (Manual) Monocytes # (Manual) PT APTT D-Dimer Heparin Anti-Xa Level < 0.10 L ABG pH POC ABG pCO2 POC ABG pO2 ABG pO2 ABG Hemoglobin ABG Oxyhemoglobin ABG Sodium ABG Potassium ABG Chloride ABG Glucose Carboxyhemoglobin Sodium 124 L Potassium Chloride Carbon Dioxide BUN Creatinine Glucose POC Glucose Lactic Acid Calcium Ferritin AST ALT Lactate Dehydrogenase Troponin T Total Protein Albumin HDL Cholesterol Arterial Blood Glucose Arterial Blood Ionized Calcium Urine WBC (Auto) 05/30/21 05/30/21 05/31/21 17:02 23:27 03:37 WBC RBC Hgb Hct MCV MCH RDW [place] # (Auto) Seg Neutrophils % Seg Neuts % (Manual) Lymphocytes % (Manual) Monocytes % (Manual) Seg Neutrophils # Seg Neutrophils # Man Lymphocytes # (Manual) Monocytes # (Manual) PT APTT D-Dimer Heparin Anti-Xa Level ABG pH POC ABG pCO2 POC ABG pO2 ABG pO2 ABG Hemoglobin 11.6 L ABG Oxyhemoglobin ABG Sodium 130.0 L ABG Potassium ABG Chloride 95.0 L ABG Glucose 292 H Carboxyhemoglobin Sodium Potassium Chloride Carbon Dioxide BUN Creatinine Glucose POC Glucose 270 H 237 H Lactic Acid Calcium Ferritin AST ALT Lactate Dehydrogenase Troponin T Total Protein Albumin HDL Cholesterol Arterial Blood Glucose 292 H Arterial Blood Ionized Calcium Urine WBC (Auto) 05/31/21 05/31/21 05/31/21 04:00 04:00 05:20 WBC 20.9 H RBC 3.13 L Hgb Hct MCV 99 H MCH 34 H RDW [place] # (Auto) Seg Neutrophils % Seg Neuts % (Manual) 81.0 H Lymphocytes % (Manual) 8.0 L Monocytes % (Manual) 9.0 H Seg Neutrophils # Seg Neutrophils # Man 16.9 H Lymphocytes # (Manual) Monocytes # (Manual) 1.9 H PT APTT D-Dimer Heparin Anti-Xa Level ABG pH POC ABG pCO2 POC ABG pO2 ABG pO2 ABG Hemoglobin ABG Oxyhemoglobin ABG Sodium ABG Potassium ABG Chloride ABG Glucose Carboxyhemoglobin Sodium 133 L D Potassium Chloride 95.4 L Carbon Dioxide 21 L BUN 30 H Creatinine 0.5 L Glucose 305 H POC Glucose 269 H Lactic Acid Calcium Ferritin AST ALT Lactate Dehydrogenase Troponin T Total Protein Albumin HDL Cholesterol Arterial Blood Glucose Arterial Blood Ionized Calcium Urine WBC (Auto) 05/31/21 05/31/21 05/31/21 11:40 18:16 23:25 WBC RBC Hgb Hct MCV MCH RDW [place] # (Auto) Seg Neutrophils % Seg Neuts % (Manual) Lymphocytes % (Manual) Monocytes % (Manual) Seg Neutrophils # Seg Neutrophils # Man Lymphocytes # (Manual) Monocytes # (Manual) PT APTT D-Dimer Heparin Anti-Xa Level ABG pH POC ABG pCO2 POC ABG pO2 ABG pO2 ABG Hemoglobin ABG Oxyhemoglobin ABG Sodium ABG Potassium ABG Chloride ABG Glucose Carboxyhemoglobin Sodium Potassium Chloride Carbon Dioxide BUN Creatinine Glucose POC Glucose 364 H 250 H 231 H Lactic Acid Calcium Ferritin AST ALT Lactate Dehydrogenase Troponin T Total Protein Albumin HDL Cholesterol Arterial Blood Glucose Arterial Blood Ionized Calcium Urine WBC (Auto) 06/01/21 06/01/21 06/01/21 04:03 04:58 04:58 WBC 20.7 H RBC 3.20 L Hgb Hct MCV 99 H MCH 34 H RDW [place] # (Auto) Seg Neutrophils % Seg Neuts % (Manual) 82.0 H Lymphocytes % (Manual) 9.0 L Monocytes % (Manual) Seg Neutrophils # Seg Neutrophils # Man 17.0 H Lymphocytes # (Manual) Monocytes # (Manual) 1.4 H PT APTT D-Dimer Heparin Anti-Xa Level 1.18 H ABG pH 7.520 H POC ABG pCO2 POC ABG pO2 66.0 L ABG pO2 ABG Hemoglobin ABG Oxyhemoglobin 92.5 L ABG Sodium 133.6 L ABG Potassium ABG Chloride ABG Glucose 250 H Carboxyhemoglobin Sodium Potassium Chloride Carbon Dioxide BUN Creatinine Glucose POC Glucose Lactic Acid Calcium Ferritin AST ALT Lactate Dehydrogenase Troponin T Total Protein Albumin HDL Cholesterol Arterial Blood Glucose 250 H Arterial Blood Ionized Calcium 4.4 L Urine WBC (Auto) 06/01/21 06/01/21 06/01/21 04:58 05:29 11:39 WBC RBC Hgb Hct MCV MCH RDW [place] # (Auto) Seg Neutrophils % Seg Neuts % (Manual) Lymphocytes % (Manual) Monocytes % (Manual) Seg Neutrophils # Seg Neutrophils # Man Lymphocytes # (Manual) Monocytes # (Manual) PT APTT D-Dimer Heparin Anti-Xa Level ABG pH POC ABG pCO2 POC ABG pO2 ABG pO2 ABG Hemoglobin ABG Oxyhemoglobin ABG Sodium ABG Potassium ABG Chloride ABG Glucose Carboxyhemoglobin Sodium 131 L Potassium Chloride 95.7 L Carbon Dioxide BUN 30 H Creatinine 0.5 L Glucose 241 H POC Glucose 215 H 299 H Lactic Acid Calcium Ferritin AST ALT Lactate Dehydrogenase Troponin T Total Protein Albumin HDL Cholesterol Arterial Blood Glucose Arterial Blood Ionized Calcium Urine WBC (Auto) 06/01/21 06/02/21 06/02/21 18:14 00:12 02:25 WBC 17.4 H RBC 3.09 L Hgb Hct MCV 101 H MCH 34 H RDW 15.5 H [place] # (Auto) Seg Neutrophils % Seg Neuts % (Manual) Lymphocytes % (Manual) Monocytes % (Manual) Seg Neutrophils # Seg Neutrophils # Man Lymphocytes # (Manual) Monocytes # (Manual) PT APTT D-Dimer Heparin Anti-Xa Level ABG pH POC ABG pCO2 POC ABG pO2 ABG pO2 ABG Hemoglobin ABG Oxyhemoglobin ABG Sodium ABG Potassium ABG Chloride ABG Glucose Carboxyhemoglobin Sodium Potassium Chloride Carbon Dioxide BUN Creatinine Glucose POC Glucose 215 H 175 H Lactic Acid Calcium Ferritin AST ALT Lactate Dehydrogenase Troponin T Total Protein Albumin HDL Cholesterol Arterial Blood Glucose Arterial Blood Ionized Calcium Urine WBC (Auto) 06/02/21 06/02/21 06/02/21 02:25 04:13 04:58 WBC RBC Hgb Hct MCV MCH RDW [place] # (Auto) Seg Neutrophils % Seg Neuts % (Manual) Lymphocytes % (Manual) Monocytes % (Manual) Seg Neutrophils # Seg Neutrophils # Man Lymphocytes # (Manual) Monocytes # (Manual) PT APTT D-Dimer Heparin Anti-Xa Level ABG pH 7.481 H POC ABG pCO2 POC ABG pO2 80.0 L ABG pO2 ABG Hemoglobin 11.1 L ABG Oxyhemoglobin ABG Sodium 131.9 L ABG Potassium ABG Chloride ABG Glucose 231 H Carboxyhemoglobin 0.2 L Sodium 134 L Potassium Chloride 95.8 L Carbon Dioxide BUN 31 H Creatinine 0.5 L Glucose 168 H POC Glucose 230 H Lactic Acid Calcium Ferritin AST ALT Lactate Dehydrogenase Troponin T Total Protein Albumin HDL Cholesterol Arterial Blood Glucose 231 H Arterial Blood Ionized Calcium Urine WBC (Auto) 06/02/21 06/02/21 06/02/21 11:27 17:47 23:53 WBC RBC Hgb Hct MCV MCH RDW [place] # (Auto) Seg Neutrophils % Seg Neuts % (Manual) Lymphocytes % (Manual) Monocytes % (Manual) Seg Neutrophils # Seg Neutrophils # Man Lymphocytes # (Manual) Monocytes # (Manual) PT APTT D-Dimer Heparin Anti-Xa Level 0.80 H ABG pH POC ABG pCO2 POC ABG pO2 ABG pO2 ABG Hemoglobin ABG Oxyhemoglobin ABG Sodium ABG Potassium ABG Chloride ABG Glucose Carboxyhemoglobin Sodium Potassium Chloride Carbon Dioxide BUN Creatinine Glucose POC Glucose 259 H 297 H Lactic Acid Calcium Ferritin AST ALT Lactate Dehydrogenase Troponin T Total Protein Albumin HDL Cholesterol Arterial Blood Glucose Arterial Blood Ionized Calcium Urine WBC (Auto) 06/03/21 06/03/21 06/03/21 00:05 05:23 09:10 WBC RBC Hgb Hct MCV MCH RDW [place] # (Auto) Seg Neutrophils % Seg Neuts % (Manual) Lymphocytes % (Manual) Monocytes % (Manual) Seg Neutrophils # Seg Neutrophils # Man Lymphocytes # (Manual) Monocytes # (Manual) PT APTT D-Dimer Heparin Anti-Xa Level 0.84 H ABG pH POC ABG pCO2 POC ABG pO2 ABG pO2 ABG Hemoglobin ABG Oxyhemoglobin ABG Sodium ABG Potassium ABG Chloride ABG Glucose Carboxyhemoglobin Sodium Potassium Chloride Carbon Dioxide BUN Creatinine Glucose POC Glucose 268 H 170 H Lactic Acid Calcium Ferritin AST ALT Lactate Dehydrogenase Troponin T Total Protein Albumin HDL Cholesterol Arterial Blood Glucose Arterial Blood Ionized Calcium Urine WBC (Auto) 06/03/21 06/03/21 06/03/21 12:06 20:22 23:30 WBC RBC Hgb Hct MCV MCH RDW [place] # (Auto) Seg Neutrophils % Seg Neuts % (Manual) Lymphocytes % (Manual) Monocytes % (Manual) Seg Neutrophils # Seg Neutrophils # Man Lymphocytes # (Manual) Monocytes # (Manual) PT APTT D-Dimer Heparin Anti-Xa Level ABG pH POC ABG pCO2 POC ABG pO2 ABG pO2 ABG Hemoglobin ABG Oxyhemoglobin ABG Sodium ABG Potassium ABG Chloride ABG Glucose Carboxyhemoglobin Sodium Potassium Chloride Carbon Dioxide BUN Creatinine Glucose POC Glucose 275 H 260 H 215 H Lactic Acid Calcium Ferritin AST ALT Lactate Dehydrogenase Troponin T Total Protein Albumin HDL Cholesterol Arterial Blood Glucose Arterial Blood Ionized Calcium Urine WBC (Auto) 06/04/21 06/04/21 06/04/21 05:03 05:57 05:57 WBC 17.8 H RBC 2.83 L Hgb 9.6 L Hct 28.4 L MCV 100 H MCH 34 H RDW 15.5 H [place] # (Auto) Seg Neutrophils % Seg Neuts % (Manual) 83.0 H Lymphocytes % (Manual) 4.0 L Monocytes % (Manual) Seg Neutrophils # Seg Neutrophils # Man 14.8 H Lymphocytes # (Manual) 0.7 L Monocytes # (Manual) 1.1 H PT APTT D-Dimer Heparin Anti-Xa Level ABG pH POC ABG pCO2 POC ABG pO2 ABG pO2 ABG Hemoglobin ABG Oxyhemoglobin ABG Sodium ABG Potassium ABG Chloride ABG Glucose Carboxyhemoglobin Sodium 135 L Potassium Chloride 96.3 L Carbon Dioxide BUN 51 H Creatinine Glucose 275 H POC Glucose 257 H Lactic Acid Calcium Ferritin AST ALT Lactate Dehydrogenase Troponin T Total Protein Albumin HDL Cholesterol Arterial Blood Glucose Arterial Blood Ionized Calcium Urine WBC (Auto) 06/04/21 09:48 WBC RBC Hgb Hct MCV MCH RDW [place] # (Auto) Seg Neutrophils % Seg Neuts % (Manual) Lymphocytes % (Manual) Monocytes % (Manual) Seg Neutrophils # Seg Neutrophils # Man Lymphocytes # (Manual) Monocytes # (Manual) PT APTT D-Dimer Heparin Anti-Xa Level ABG pH POC ABG pCO2 POC ABG pO2 ABG pO2 ABG Hemoglobin ABG Oxyhemoglobin ABG Sodium ABG Potassium ABG Chloride ABG Glucose Carboxyhemoglobin Sodium Potassium Chloride Carbon Dioxide BUN Creatinine Glucose POC Glucose 198 H Lactic Acid Calcium Ferritin AST ALT Lactate Dehydrogenase Troponin T Total Protein Albumin HDL Cholesterol Arterial Blood Glucose Arterial Blood Ionized Calcium Urine WBC (Auto)
--- NOTE | 2021-06-04 12:18 | Progress Note ---
Assessment and Plan Acute hypoxemic respiratory failure on MVS Cardiopulmonary arrest wtih ROSC Seizure disorder Sepsis Toxic metabolic encephalopathy, possible anoxia Atrial fibrillation with RVR Metabolic acidosis Bilateral lower lobe infiltrates - with persistent AMS she will need a tracheostomy for continued weaning - will discuss with NOK in am - continue hydralazine for BP control - prn CXR's & ABG's at this point - continue care as below otherwise; - continue scopolamine for secretion control - continue Keppra as AED - daily SAT and SBT assessment as tolerated - continue to wean supplemental oxygen for target O2 sat's > 90% acutely - VAP bundle addressed - continue lung protective strategies - continue bronchodilators with pulmonary hygiene per RT - wean per pulmonary driven protocols otherwise - continue accuchecks with glycemic control per SSI (While critically ill target blood glucose of 140-180 mg/dL; avoid hypoglycemia) - sedation prn for target RASS 0 to -1 - avoid nephrotoxins, renally dose all medications - continue to avoid benzodiazepine's, reduce the possibility of delirium - AB's per ID rec's - prn analgesia per CPOT score - Maintenance of sleep-wake cycle, avoid delirium - continue enteral nutritional support at goal rate as tolerated - G.I. & VTE prophylaxis - PT/OT/ROM exercises - continue mobility protocols for pressure ulcer prophylaxis - Monitor hemodynamics closely - continue other care per attending / other consultants - discharge planning ongoing concurrently COVID SPECIFIC INTERVENTIONS - COVID-19 PCR negative .... Re-evaluate in am & prn CONDITION: CRITICAL PROGNOSIS: GUARDED CODE STATUS: FULL CODE The high probability of a clinically significant, sudden or life-threatening deterioration of the [respiratory, cardiovascular & neurologic] system(s) required my full and direct attention, intervention and personal management. The aggregate critical care time was [33] minutes without overlap. Time includes spent on; [x] Data Review and interpretation [x] Patient assessment and monitoring of vital signs [x] Documentation [x] Medication orders and management Subjective Date of service: 06/04/21 Principal diagnosis: Ac hypoxemic resp failure; Cardiac arrest; Seizures; Sepsis; AMS; A-Fib RVR Interval history: Patient is seen today for: Acute hypoxemic respiratory failure; Cardiac arrest wtih ROSC; Seizure disorder; Sepsis; AMS; A-Fib with RVR Seen and examined at bedside; 24hour events reviewed; nursing and respiratory care staff consulted; no adverse overnight events reported to me; resting in bed; remains on MVS; AMS is persistent; no emesis or overt aspiration; no high grade fevers; weaning tenuously Objective Vital Signs - 12hr 06/04/21 06/04/21 06/04/21 00:30 00:45 01:00 Temperature Pulse Rate 77 78 82 Pulse Rate [ From Monitor] Respiratory 14 13 23 Rate Blood Pressure 142/64 149/62 163/66 O2 Sat by Pulse 99 98 97 Oximetry 06/04/21 06/04/21 06/04/21 01:15 01:30 01:40 Temperature Pulse Rate 80 81 81 Pulse Rate [ From Monitor] Respiratory 14 14 17 Rate Blood Pressure 151/60 148/61 O2 Sat by Pulse 98 97 100 Oximetry 06/04/21 06/04/21 06/04/21 01:45 02:00 02:15 Temperature Pulse Rate 81 78 81 Pulse Rate [ From Monitor] Respiratory 16 16 15 Rate Blood Pressure 151/64 149/60 155/66 O2 Sat by Pulse 97 98 98 Oximetry 06/04/21 06/04/21 06/04/21 02:30 02:45 03:00 Temperature Pulse Rate 81 79 81 Pulse Rate [ From Monitor] Respiratory 16 14 14 Rate Blood Pressure 154/62 144/62 154/63 O2 Sat by Pulse 97 97 97 Oximetry 06/04/21 06/04/21 06/04/21 03:15 03:30 03:42 Temperature Pulse Rate 80 81 81 Pulse Rate [ 79 From Monitor] Respiratory 14 15 19 Rate Blood Pressure 151/60 155/62 O2 Sat by Pulse 97 97 100 Oximetry 06/04/21 06/04/21 06/04/21 03:45 03:55 04:00 Temperature 97.6 F Pulse Rate 80 79 78 Pulse Rate [ From Monitor] Respiratory 14 15 Rate Blood Pressure 153/60 153/60 149/60 O2 Sat by Pulse 97 98 Oximetry 06/04/21 06/04/21 06/04/21 04:15 04:30 04:35 Temperature Pulse Rate 78 77 76 Pulse Rate [ From Monitor] Respiratory 15 15 Rate Blood Pressure 145/61 145/62 145/62 O2 Sat by Pulse 98 99 100 Oximetry 06/04/21 06/04/21 06/04/21 04:45 05:00 05:15 Temperature Pulse Rate 82 78 79 Pulse Rate [ From Monitor] Respiratory 13 14 14 Rate Blood Pressure 148/62 143/58 144/57 O2 Sat by Pulse 99 98 98 Oximetry 06/04/21 06/04/21 06/04/21 05:30 05:45 06:00 Temperature Pulse Rate 78 78 77 Pulse Rate [ From Monitor] Respiratory 13 14 14 Rate Blood Pressure 144/58 145/62 141/56 O2 Sat by Pulse 98 99 99 Oximetry 06/04/21 06/04/21 06/04/21 06:15 06:31 06:40 Temperature Pulse Rate 76 76 81 Pulse Rate [ From Monitor] Respiratory 14 35 H 19 Rate Blood Pressure 142/59 140/84 O2 Sat by Pulse 99 99 100 Oximetry 06/04/21 06/04/21 06/04/21 06:45 07:00 07:15 Temperature Pulse Rate 78 76 74 Pulse Rate [ From Monitor] Respiratory 15 15 15 Rate Blood Pressure 153/58 145/57 146/58 O2 Sat by Pulse 100 99 99 Oximetry 06/04/21 06/04/21 06/04/21 07:30 07:45 08:00 Temperature 97.9 F Pulse Rate 78 80 77 Pulse Rate [ 79 From Monitor] Respiratory 14 15 14 Rate Blood Pressure 148/61 156/60 149/63 O2 Sat by Pulse 99 99 99 Oximetry 06/04/21 06/04/21 06/04/21 08:15 08:20 08:30 Temperature Pulse Rate 79 85 79 Pulse Rate [ From Monitor] Respiratory 15 23 21 Rate Blood Pressure 151/58 151/58 149/60 O2 Sat by Pulse 99 99 100 Oximetry 06/04/21 06/04/21 06/04/21 08:45 09:00 09:15 Temperature Pulse Rate 80 80 75 Pulse Rate [ From Monitor] Respiratory 20 19 16 Rate Blood Pressure 155/64 154/60 146/58 O2 Sat by Pulse 97 97 98 Oximetry 06/04/21 06/04/21 06/04/21 09:30 09:43 09:45 Temperature Pulse Rate 81 78 77 Pulse Rate [ From Monitor] Respiratory 22 17 Rate Blood Pressure 158/63 158/63 158/63 O2 Sat by Pulse 97 99 Oximetry 06/04/21 06/04/21 06/04/21 10:00 10:15 10:30 Temperature Pulse Rate 79 73 72 Pulse Rate [ From Monitor] Respiratory 19 18 13 Rate Blood Pressure 150/63 137/61 138/65 O2 Sat by Pulse 98 99 100 Oximetry 06/04/21 06/04/21 10:45 11:00 Temperature Pulse Rate 71 69 Pulse Rate [ From Monitor] Respiratory 17 16 Rate Blood Pressure 126/60 122/57 O2 Sat by Pulse 100 100 Oximetry Constitutional: no acute distress, other (elderly female with mildly increased respiratory effort at rest on MVS) Eyes: non-icteric ENT: oropharynx moist, oropharyngeal exudate pre (clear), other (ETT at 23cm [place]APIN) Neck: supple, no lymphadenopathy Effort: mildly labored Ascultation: Bilateral: diminished breath sounds, rhonchi Percussion: Bilateral: not dull Cardiovascular: irregular rhythm, other (S1,S2) Gastrointestinal: normoactive bowel sounds Integumentary: normal Extremities: no cyanosis, pink and warm, pulses normal, other (Right femoral CVL) Neurologic: pupils equal and round, other (encephalopathic; sedated) Psychiatric: other (unable to assess) CBC and BMP: 06/04/21 05:57 06/04/21 05:57 ABG, PT/INR, D-dimer: ABG ABG pH 7.481 (7.320-7.450) H 06/02/21 04:13 POC ABG pCO2 36.9 mmHg (32.0-48.0) 06/02/21 04:13 ABG pCO2 30.3 mm Hg 05/29/21 05:28 POC ABG pO2 80.0 mmHg (83-108) L 06/02/21 04:13 ABG pO2 96.2 mm Hg (80.0-90.0) H 05/29/21 05:28 POC ABG HCO3 26.9 06/02/21 04:13 ABG O2 Saturation 95.7 (0-100) 06/02/21 04:13 PT/INR, D-dimer PT 15.0 Sec. (12.2-14.9) H 05/25/21 09: INR 1.13 (0.87-1.13) 05/25/21 09:21 D-Dimer > 48639 ng/mlDDU (0-234) H 05/25/21 09:21 Abnormal lab findings: Abnormal Labs 05/25/21 05/25/21 05/25/21 09:07 09: 09:21 WBC 17.1 H RBC Hgb Hct MCV 106 H MCH 33 H RDW 15.6 H [place] # (Auto) Seg Neutrophils % Seg Neuts % (Manual) Lymphocytes % (Manual) Monocytes % (Manual) Seg Neutrophils # Seg Neutrophils # Man 10.1 H Lymphocytes # (Manual) 5.6 H Monocytes # (Manual) PT 15.0 H APTT 44.3 H D-Dimer > 62888 H Heparin Anti-Xa Level ABG pH 7.116 L POC ABG pCO2 POC ABG pO2 ABG pO2 ABG Hemoglobin ABG Oxyhemoglobin 93.7 L ABG Sodium ABG Potassium ABG Chloride ABG Glucose 395 H Carboxyhemoglobin Sodium Potassium Chloride Carbon Dioxide BUN Creatinine Glucose POC Glucose Lactic Acid Calcium Ferritin AST ALT Lactate Dehydrogenase Troponin T Total Protein Albumin HDL Cholesterol Arterial Blood Glucose 395 H Arterial Blood Ionized Calcium 4.4 L Urine WBC (Auto) 05/25/21 05/25/21 05/25/21 09:21 09:21 09:21 WBC RBC Hgb Hct MCV MCH RDW [place] # (Auto) Seg Neutrophils % Seg Neuts % (Manual) Lymphocytes % (Manual) Monocytes % (Manual) Seg Neutrophils # Seg Neutrophils # Man Lymphocytes # (Manual) Monocytes # (Manual) PT APTT D-Dimer Heparin Anti-Xa Level ABG pH POC ABG pCO2 POC ABG pO2 ABG pO2 ABG Hemoglobin ABG Oxyhemoglobin ABG Sodium ABG Potassium ABG Chloride ABG Glucose Carboxyhemoglobin Sodium Potassium Chloride Carbon Dioxide 10 L BUN Creatinine Glucose 423 H 424 H POC Glucose Lactic Acid Calcium 8.2 L Ferritin 321.6 H AST 162 H ALT 119 H Lactate Dehydrogenase 445 H Troponin T Total Protein 5.6 L Albumin 3.2 L HDL Cholesterol Arterial Blood Glucose Arterial Blood Ionized Calcium Urine WBC (Auto) 05/25/21 05/25/21 05/25/21 09:35 10:42 11:12 WBC RBC Hgb Hct MCV MCH RDW [place] # (Auto) Seg Neutrophils % Seg Neuts % (Manual) Lymphocytes % (Manual) Monocytes % (Manual) Seg Neutrophils # Seg Neutrophils # Man Lymphocytes # (Manual) Monocytes # (Manual) PT APTT D-Dimer Heparin Anti-Xa Level ABG pH POC ABG pCO2 POC ABG pO2 ABG pO2 ABG Hemoglobin ABG Oxyhemoglobin ABG Sodium ABG Potassium ABG Chloride ABG Glucose Carboxyhemoglobin Sodium Potassium Chloride Carbon Dioxide BUN Creatinine Glucose POC Glucose Lactic Acid 16.70 H* 7.70 H* Calcium Ferritin AST ALT Lactate Dehydrogenase Troponin T Total Protein Albumin HDL Cholesterol Arterial Blood Glucose Arterial Blood Ionized Calcium Urine WBC (Auto) 11.0 H 05/25/21 05/25/21 05/25/21 14:07 15:19 19:04 WBC RBC Hgb Hct MCV MCH RDW [place] # (Auto) Seg Neutrophils % Seg Neuts % (Manual) Lymphocytes % (Manual) Monocytes % (Manual) Seg Neutrophils # Seg Neutrophils # Man Lymphocytes # (Manual) Monocytes # (Manual) PT APTT D-Dimer Heparin Anti-Xa Level ABG pH POC ABG pCO2 POC ABG pO2 172.2 H ABG pO2 ABG Hemoglobin ABG Oxyhemoglobin 98.7 H ABG Sodium 135.7 L ABG Potassium ABG Chloride ABG Glucose 255 H Carboxyhemoglobin 0.3 L Sodium Potassium Chloride Carbon Dioxide BUN Creatinine Glucose POC Glucose Lactic Acid 3.90 H* Calcium Ferritin AST ALT Lactate Dehydrogenase Troponin T 0.226 H* D Total Protein Albumin HDL Cholesterol 64 H Arterial Blood Glucose 255 H Arterial Blood Ionized Calcium 3.8 L Urine WBC (Auto) 05/25/21 05/25/21 05/26/21 21:16 21:16 04:00 WBC RBC Hgb Hct MCV MCH RDW [place] # (Auto) Seg Neutrophils % Seg Neuts % (Manual) Lymphocytes % (Manual) Monocytes % (Manual) Seg Neutrophils # Seg Neutrophils # Man Lymphocytes # (Manual) Monocytes # (Manual) PT APTT D-Dimer Heparin Anti-Xa Level 1.19 H ABG pH 7.547 H POC ABG pCO2 POC ABG pO2 ABG pO2 ABG Hemoglobin 11.9 L ABG Oxyhemoglobin ABG Sodium 133.2 L ABG Potassium 3.1 L ABG Chloride ABG Glucose 243 H Carboxyhemoglobin 0.3 L Sodium Potassium Chloride Carbon Dioxide BUN Creatinine Glucose POC Glucose Lactic Acid 2.50 H* Calcium Ferritin AST ALT Lactate Dehydrogenase Troponin T Total Protein Albumin HDL Cholesterol Arterial Blood Glucose 243 H Arterial Blood Ionized Calcium Urine WBC (Auto) 05/26/21 05/26/21 05/26/21 05:49 05:49 17:33 WBC RBC Hgb Hct MCV MCH RDW [place] # (Auto) Seg Neutrophils % Seg Neuts % (Manual) Lymphocytes % (Manual) Monocytes % (Manual) Seg Neutrophils # Seg Neutrophils # Man Lymphocytes # (Manual) Monocytes # (Manual) PT APTT D-Dimer Heparin Anti-Xa Level ABG pH POC ABG pCO2 POC ABG pO2 ABG pO2 ABG Hemoglobin ABG Oxyhemoglobin ABG Sodium ABG Potassium ABG Chloride ABG Glucose Carboxyhemoglobin Sodium Potassium Chloride Carbon Dioxide BUN Creatinine Glucose 226 H POC Glucose 156 H Lactic Acid 2.30 H* Calcium 7.2 L Ferritin AST 111 H ALT 97 H Lactate Dehydrogenase Troponin T Total Protein 5.4 L Albumin 3.3 L HDL Cholesterol Arterial Blood Glucose Arterial Blood Ionized Calcium Urine WBC (Auto) 05/27/21 05/27/21 05/27/21 02:11 02:11 02:11 WBC 14.3 H RBC 3.27 L Hgb Hct MCV 99 H MCH 33 H RDW 15.3 H [place] # (Auto) 1.0 H Seg Neutrophils % Seg Neuts % (Manual) Lymphocytes % (Manual) Monocytes % (Manual) Seg Neutrophils # 10.0 H Seg Neutrophils # Man Lymphocytes # (Manual) Monocytes # (Manual) PT APTT D-Dimer Heparin Anti-Xa Level 0.80 H ABG pH POC ABG pCO2 POC ABG pO2 ABG pO2 ABG Hemoglobin ABG Oxyhemoglobin ABG Sodium ABG Potassium ABG Chloride ABG Glucose Carboxyhemoglobin Sodium Potassium 2.9 L* D Chloride Carbon Dioxide 31 H BUN 6 L Creatinine Glucose 215 H POC Glucose Lactic Acid Calcium 8.1 L Ferritin AST ALT Lactate Dehydrogenase Troponin T Total Protein Albumin HDL Cholesterol Arterial Blood Glucose Arterial Blood Ionized Calcium Urine WBC (Auto) 05/27/21 05/27/21 05/27/21 11:24 12:49 18:06 WBC RBC Hgb Hct MCV MCH RDW [place] # (Auto) Seg Neutrophils % Seg Neuts % (Manual) Lymphocytes % (Manual) Monocytes % (Manual) Seg Neutrophils # Seg Neutrophils # Man Lymphocytes # (Manual) Monocytes # (Manual) PT APTT D-Dimer Heparin Anti-Xa Level ABG pH POC ABG pCO2 POC ABG pO2 ABG pO2 ABG Hemoglobin ABG Oxyhemoglobin ABG Sodium ABG Potassium ABG Chloride ABG Glucose Carboxyhemoglobin Sodium Potassium Chloride Carbon Dioxide BUN Creatinine Glucose POC Glucose 151 H 165 H 137 H Lactic Acid Calcium Ferritin AST ALT Lactate Dehydrogenase Troponin T Total Protein Albumin HDL Cholesterol Arterial Blood Glucose Arterial Blood Ionized Calcium Urine WBC (Auto) 05/28/21 05/28/21 05/28/21 04:00 04:00 06:02 WBC 13.5 H RBC 3.05 L Hgb Hct MCV 100 H MCH 34 H RDW [place] # (Auto) 0.9 H Seg Neutrophils % 78.2 H Seg Neuts % (Manual) Lymphocytes % (Manual) Monocytes % (Manual) Seg Neutrophils # 10.6 H Seg Neutrophils # Man Lymphocytes # (Manual) Monocytes # (Manual) PT APTT D-Dimer Heparin Anti-Xa Level ABG pH 7.507 H POC ABG pCO2 POC ABG pO2 ABG pO2 ABG Hemoglobin 10.6 L ABG Oxyhemoglobin ABG Sodium 129.4 L ABG Potassium ABG Chloride ABG Glucose 243 H Carboxyhemoglobin 0.2 L Sodium 136 L D Potassium Chloride Carbon Dioxide BUN Creatinine Glucose 215 H POC Glucose Lactic Acid Calcium Ferritin AST ALT Lactate Dehydrogenase Troponin T Total Protein Albumin HDL Cholesterol Arterial Blood Glucose 243 H Arterial Blood Ionized Calcium 4.1 L Urine WBC (Auto) 05/28/21 05/28/21 05/29/21 11:27 23:02 04:30 WBC RBC Hgb 9.3 L Hct 26.7 L MCV MCH RDW [place] # (Auto) Seg Neutrophils % Seg Neuts % (Manual) Lymphocytes % (Manual) Monocytes % (Manual) Seg Neutrophils # Seg Neutrophils # Man Lymphocytes # (Manual) Monocytes # (Manual) PT APTT D-Dimer Heparin Anti-Xa Level ABG pH POC ABG pCO2 POC ABG pO2 ABG pO2 ABG Hemoglobin ABG Oxyhemoglobin ABG Sodium ABG Potassium ABG Chloride ABG Glucose Carboxyhemoglobin Sodium Potassium Chloride Carbon Dioxide BUN Creatinine Glucose POC Glucose 220 H 212 H Lactic Acid Calcium Ferritin AST ALT Lactate Dehydrogenase Troponin T Total Protein Albumin HDL Cholesterol Arterial Blood Glucose Arterial Blood Ionized Calcium Urine WBC (Auto) 05/29/21 05/29/21 05/29/21 05:02 05:28 12:55 WBC RBC Hgb Hct MCV MCH RDW [place] # (Auto) Seg Neutrophils % Seg Neuts % (Manual) Lymphocytes % (Manual) Monocytes % (Manual) Seg Neutrophils # Seg Neutrophils # Man Lymphocytes # (Manual) Monocytes # (Manual) PT APTT D-Dimer Heparin Anti-Xa Level ABG pH 7.516 H POC ABG pCO2 POC ABG pO2 ABG pO2 96.2 H ABG Hemoglobin 7.5 L ABG Oxyhemoglobin ABG Sodium ABG Potassium ABG Chloride ABG Glucose Carboxyhemoglobin Sodium Potassium Chloride Carbon Dioxide BUN Creatinine Glucose POC Glucose 197 H 251 H Lactic Acid Calcium Ferritin AST ALT Lactate Dehydrogenase Troponin T Total Protein Albumin HDL Cholesterol Arterial Blood Glucose Arterial Blood Ionized Calcium Urine WBC (Auto) 05/29/21 05/29/21 05/30/21 18:23 23:31 04:10 WBC RBC Hgb Hct MCV MCH RDW [place] # (Auto) Seg Neutrophils % Seg Neuts % (Manual) Lymphocytes % (Manual) Monocytes % (Manual) Seg Neutrophils # Seg Neutrophils # Man Lymphocytes # (Manual) Monocytes # (Manual) PT APTT D-Dimer Heparin Anti-Xa Level ABG pH 7.532 H POC ABG pCO2 30.0 L POC ABG pO2 78.5 L ABG pO2 ABG Hemoglobin 11.3 L ABG Oxyhemoglobin ABG Sodium 126.7 L ABG Potassium ABG Chloride 94.0 L ABG Glucose 270 H Carboxyhemoglobin 0.4 L Sodium Potassium Chloride Carbon Dioxide BUN Creatinine Glucose POC Glucose 236 H 252 H Lactic Acid Calcium Ferritin AST ALT Lactate Dehydrogenase Troponin T Total Protein Albumin HDL Cholesterol Arterial Blood Glucose 270 H Arterial Blood Ionized Calcium 4.4 L Urine WBC (Auto) 05/30/21 05/30/21 05/30/21 05:06 06:23 11:15 WBC RBC Hgb Hct MCV MCH RDW [place] # (Auto) Seg Neutrophils % Seg Neuts % (Manual) Lymphocytes % (Manual) Monocytes % (Manual) Seg Neutrophils # Seg Neutrophils # Man Lymphocytes # (Manual) Monocytes # (Manual) PT APTT D-Dimer Heparin Anti-Xa Level ABG pH POC ABG pCO2 POC ABG pO2 ABG pO2 ABG Hemoglobin ABG Oxyhemoglobin ABG Sodium ABG Potassium ABG Chloride ABG Glucose Carboxyhemoglobin Sodium 126 L D Potassium Chloride 91.9 L Carbon Dioxide 20 L D BUN Creatinine 0.4 L Glucose 274 H POC Glucose 242 H 346 H Lactic Acid Calcium Ferritin AST ALT Lactate Dehydrogenase Troponin T Total Protein Albumin HDL Cholesterol Arterial Blood Glucose Arterial Blood Ionized Calcium Urine WBC (Auto) 05/30/21 05/30/21 05/30/21 11:19 11:19 11:19 WBC 18.9 H RBC 3.36 L Hgb Hct MCV 102 H MCH 33 H RDW 15.5 H [place] # (Auto) Seg Neutrophils % Seg Neuts % (Manual) Lymphocytes % (Manual) Monocytes % (Manual) Seg Neutrophils # Seg Neutrophils # Man Lymphocytes # (Manual) Monocytes # (Manual) PT APTT D-Dimer Heparin Anti-Xa Level < 0.10 L ABG pH POC ABG pCO2 POC ABG pO2 ABG pO2 ABG Hemoglobin ABG Oxyhemoglobin ABG Sodium ABG Potassium ABG Chloride ABG Glucose Carboxyhemoglobin Sodium 124 L Potassium Chloride Carbon Dioxide BUN Creatinine Glucose POC Glucose Lactic Acid Calcium Ferritin AST ALT Lactate Dehydrogenase Troponin T Total Protein Albumin HDL Cholesterol Arterial Blood Glucose Arterial Blood Ionized Calcium Urine WBC (Auto) 05/30/21 05/30/21 05/31/21 17:02 23:27 03:37 WBC RBC Hgb Hct MCV MCH RDW [place] # (Auto) Seg Neutrophils % Seg Neuts % (Manual) Lymphocytes % (Manual) Monocytes % (Manual) Seg Neutrophils # Seg Neutrophils # Man Lymphocytes # (Manual) Monocytes # (Manual) PT APTT D-Dimer Heparin Anti-Xa Level ABG pH POC ABG pCO2 POC ABG pO2 ABG pO2 ABG Hemoglobin 11.6 L ABG Oxyhemoglobin ABG Sodium 130.0 L ABG Potassium ABG Chloride 95.0 L ABG Glucose 292 H Carboxyhemoglobin Sodium Potassium Chloride Carbon Dioxide BUN Creatinine Glucose POC Glucose 270 H 237 H Lactic Acid Calcium Ferritin AST ALT Lactate Dehydrogenase Troponin T Total Protein Albumin HDL Cholesterol Arterial Blood Glucose 292 H Arterial Blood Ionized Calcium Urine WBC (Auto) 05/31/21 05/31/21 05/31/21 04:00 04:00 05:20 WBC 20.9 H RBC 3.13 L Hgb Hct MCV 99 H MCH 34 H RDW [place] # (Auto) Seg Neutrophils % Seg Neuts % (Manual) 81.0 H Lymphocytes % (Manual) 8.0 L Monocytes % (Manual) 9.0 H Seg Neutrophils # Seg Neutrophils # Man 16.9 H Lymphocytes # (Manual) Monocytes # (Manual) 1.9 H PT APTT D-Dimer Heparin Anti-Xa Level ABG pH POC ABG pCO2 POC ABG pO2 ABG pO2 ABG Hemoglobin ABG Oxyhemoglobin ABG Sodium ABG Potassium ABG Chloride ABG Glucose Carboxyhemoglobin Sodium 133 L D Potassium Chloride 95.4 L Carbon Dioxide 21 L BUN 30 H Creatinine 0.5 L Glucose 305 H POC Glucose 269 H Lactic Acid Calcium Ferritin AST ALT Lactate Dehydrogenase Troponin T Total Protein Albumin HDL Cholesterol Arterial Blood Glucose Arterial Blood Ionized Calcium Urine WBC (Auto) 05/31/21 05/31/21 05/31/21 11:40 18:16 23:25 WBC RBC Hgb Hct MCV MCH RDW [place] # (Auto) Seg Neutrophils % Seg Neuts % (Manual) Lymphocytes % (Manual) Monocytes % (Manual) Seg Neutrophils # Seg Neutrophils # Man Lymphocytes # (Manual) Monocytes # (Manual) PT APTT D-Dimer Heparin Anti-Xa Level ABG pH POC ABG pCO2 POC ABG pO2 ABG pO2 ABG Hemoglobin ABG Oxyhemoglobin ABG Sodium ABG Potassium ABG Chloride ABG Glucose Carboxyhemoglobin Sodium Potassium Chloride Carbon Dioxide BUN Creatinine Glucose POC Glucose 364 H 250 H 231 H Lactic Acid Calcium Ferritin AST ALT Lactate Dehydrogenase Troponin T Total Protein Albumin HDL Cholesterol Arterial Blood Glucose Arterial Blood Ionized Calcium Urine WBC (Auto) 06/01/21 06/01/21 06/01/21 04:03 04:58 04:58 WBC 20.7 H RBC 3.20 L Hgb Hct MCV 99 H MCH 34 H RDW [place] # (Auto) Seg Neutrophils % Seg Neuts % (Manual) 82.0 H Lymphocytes % (Manual) 9.0 L Monocytes % (Manual) Seg Neutrophils # Seg Neutrophils # Man 17.0 H Lymphocytes # (Manual) Monocytes # (Manual) 1.4 H PT APTT D-Dimer Heparin Anti-Xa Level 1.18 H ABG pH 7.520 H POC ABG pCO2 POC ABG pO2 66.0 L ABG pO2 ABG Hemoglobin ABG Oxyhemoglobin 92.5 L ABG Sodium 133.6 L ABG Potassium ABG Chloride ABG Glucose 250 H Carboxyhemoglobin Sodium Potassium Chloride Carbon Dioxide BUN Creatinine Glucose POC Glucose Lactic Acid Calcium Ferritin AST ALT Lactate Dehydrogenase Troponin T Total Protein Albumin HDL Cholesterol Arterial Blood Glucose 250 H Arterial Blood Ionized Calcium 4.4 L Urine WBC (Auto) 06/01/21 06/01/21 06/01/21 04:58 05:29 11:39 WBC RBC Hgb Hct MCV MCH RDW [place] # (Auto) Seg Neutrophils % Seg Neuts % (Manual) Lymphocytes % (Manual) Monocytes % (Manual) Seg Neutrophils # Seg Neutrophils # Man Lymphocytes # (Manual) Monocytes # (Manual) PT APTT D-Dimer Heparin Anti-Xa Level ABG pH POC ABG pCO2 POC ABG pO2 ABG pO2 ABG Hemoglobin ABG Oxyhemoglobin ABG Sodium ABG Potassium ABG Chloride ABG Glucose Carboxyhemoglobin Sodium 131 L Potassium Chloride 95.7 L Carbon Dioxide BUN 30 H Creatinine 0.5 L Glucose 241 H POC Glucose 215 H 299 H Lactic Acid Calcium Ferritin AST ALT Lactate Dehydrogenase Troponin T Total Protein Albumin HDL Cholesterol Arterial Blood Glucose Arterial Blood Ionized Calcium Urine WBC (Auto) 06/01/21 06/02/21 06/02/21 18:14 00:12 02:25 WBC 17.4 H RBC 3.09 L Hgb Hct MCV 101 H MCH 34 H RDW 15.5 H [place] # (Auto) Seg Neutrophils % Seg Neuts % (Manual) Lymphocytes % (Manual) Monocytes % (Manual) Seg Neutrophils # Seg Neutrophils # Man Lymphocytes # (Manual) Monocytes # (Manual) PT APTT D-Dimer Heparin Anti-Xa Level ABG pH POC ABG pCO2 POC ABG pO2 ABG pO2 ABG Hemoglobin ABG Oxyhemoglobin ABG Sodium ABG Potassium ABG Chloride ABG Glucose Carboxyhemoglobin Sodium Potassium Chloride Carbon Dioxide BUN Creatinine Glucose POC Glucose 215 H 175 H Lactic Acid Calcium Ferritin AST ALT Lactate Dehydrogenase Troponin T Total Protein Albumin HDL Cholesterol Arterial Blood Glucose Arterial Blood Ionized Calcium Urine WBC (Auto) 06/02/21 06/02/21 06/02/21 02:25 04:13 04:58 WBC RBC Hgb Hct MCV MCH RDW [place] # (Auto) Seg Neutrophils % Seg Neuts % (Manual) Lymphocytes % (Manual) Monocytes % (Manual) Seg Neutrophils # Seg Neutrophils # Man Lymphocytes # (Manual) Monocytes # (Manual) PT APTT D-Dimer Heparin Anti-Xa Level ABG pH 7.481 H POC ABG pCO2 POC ABG pO2 80.0 L ABG pO2 ABG Hemoglobin 11.1 L ABG Oxyhemoglobin ABG Sodium 131.9 L ABG Potassium ABG Chloride ABG Glucose 231 H Carboxyhemoglobin 0.2 L Sodium 134 L Potassium Chloride 95.8 L Carbon Dioxide BUN 31 H Creatinine 0.5 L Glucose 168 H POC Glucose 230 H Lactic Acid Calcium Ferritin AST ALT Lactate Dehydrogenase Troponin T Total Protein Albumin HDL Cholesterol Arterial Blood Glucose 231 H Arterial Blood Ionized Calcium Urine WBC (Auto) 06/02/21 06/02/21 06/02/21 11:27 17:47 23:53 WBC RBC Hgb Hct MCV MCH RDW [place] # (Auto) Seg Neutrophils % Seg Neuts % (Manual) Lymphocytes % (Manual) Monocytes % (Manual) Seg Neutrophils # Seg Neutrophils # Man Lymphocytes # (Manual) Monocytes # (Manual) PT APTT D-Dimer Heparin Anti-Xa Level 0.80 H ABG pH POC ABG pCO2 POC ABG pO2 ABG pO2 ABG Hemoglobin ABG Oxyhemoglobin ABG Sodium ABG Potassium ABG Chloride ABG Glucose Carboxyhemoglobin Sodium Potassium Chloride Carbon Dioxide BUN Creatinine Glucose POC Glucose 259 H 297 H Lactic Acid Calcium Ferritin AST ALT Lactate Dehydrogenase Troponin T Total Protein Albumin HDL Cholesterol Arterial Blood Glucose Arterial Blood Ionized Calcium Urine WBC (Auto) 06/03/21 06/03/21 06/03/21 00:05 05:23 09:10 WBC RBC Hgb Hct MCV MCH RDW [place] # (Auto) Seg Neutrophils % Seg Neuts % (Manual) Lymphocytes % (Manual) Monocytes % (Manual) Seg Neutrophils # Seg Neutrophils # Man Lymphocytes # (Manual) Monocytes # (Manual) PT APTT D-Dimer Heparin Anti-Xa Level 0.84 H ABG pH POC ABG pCO2 POC ABG pO2 ABG pO2 ABG Hemoglobin ABG Oxyhemoglobin ABG Sodium ABG Potassium ABG Chloride ABG Glucose Carboxyhemoglobin Sodium Potassium Chloride Carbon Dioxide BUN Creatinine Glucose POC Glucose 268 H 170 H Lactic Acid Calcium Ferritin AST ALT Lactate Dehydrogenase Troponin T Total Protein Albumin HDL Cholesterol Arterial Blood Glucose Arterial Blood Ionized Calcium Urine WBC (Auto) 06/03/21 06/03/21 06/03/21 12:06 20:22 23:30 WBC RBC Hgb Hct MCV MCH RDW [place] # (Auto) Seg Neutrophils % Seg Neuts % (Manual) Lymphocytes % (Manual) Monocytes % (Manual) Seg Neutrophils # Seg Neutrophils # Man Lymphocytes # (Manual) Monocytes # (Manual) PT APTT D-Dimer Heparin Anti-Xa Level ABG pH POC ABG pCO2 POC ABG pO2 ABG pO2 ABG Hemoglobin ABG Oxyhemoglobin ABG Sodium ABG Potassium ABG Chloride ABG Glucose Carboxyhemoglobin Sodium Potassium Chloride Carbon Dioxide BUN Creatinine Glucose POC Glucose 275 H 260 H 215 H Lactic Acid Calcium Ferritin AST ALT Lactate Dehydrogenase Troponin T Total Protein Albumin HDL Cholesterol Arterial Blood Glucose Arterial Blood Ionized Calcium Urine WBC (Auto) 06/04/21 06/04/21 06/04/21 05:03 05:57 05:57 WBC 17.8 H RBC 2.83 L Hgb 9.6 L Hct 28.4 L MCV 100 H MCH 34 H RDW 15.5 H [place] # (Auto) Seg Neutrophils % Seg Neuts % (Manual) 83.0 H Lymphocytes % (Manual) 4.0 L Monocytes % (Manual) Seg Neutrophils # Seg Neutrophils # Man 14.8 H Lymphocytes # (Manual) 0.7 L Monocytes # (Manual) 1.1 H PT APTT D-Dimer Heparin Anti-Xa Level ABG pH POC ABG pCO2 POC ABG pO2 ABG pO2 ABG Hemoglobin ABG Oxyhemoglobin ABG Sodium ABG Potassium ABG Chloride ABG Glucose Carboxyhemoglobin Sodium 135 L Potassium Chloride 96.3 L Carbon Dioxide BUN 51 H Creatinine Glucose 275 H POC Glucose 257 H Lactic Acid Calcium Ferritin AST ALT Lactate Dehydrogenase Troponin T Total Protein Albumin HDL Cholesterol Arterial Blood Glucose Arterial Blood Ionized Calcium Urine WBC (Auto) 06/04/21 06/04/21 09:48 11:08 WBC RBC Hgb Hct MCV MCH RDW [place] # (Auto) Seg Neutrophils % Seg Neuts % (Manual) Lymphocytes % (Manual) Monocytes % (Manual) Seg Neutrophils # Seg Neutrophils # Man Lymphocytes # (Manual) Monocytes # (Manual) PT APTT D-Dimer Heparin Anti-Xa Level ABG pH POC ABG pCO2 POC ABG pO2 ABG pO2 ABG Hemoglobin ABG Oxyhemoglobin ABG Sodium ABG Potassium ABG Chloride ABG Glucose Carboxyhemoglobin Sodium Potassium Chloride Carbon Dioxide BUN Creatinine Glucose POC Glucose 198 H 234 H Lactic Acid Calcium Ferritin AST ALT Lactate Dehydrogenase Troponin T Total Protein Albumin HDL Cholesterol Arterial Blood Glucose Arterial Blood Ionized Calcium Urine WBC (Auto) Chest x-ray: other (none today) Allied health notes reviewed: nursing
--- NOTE | 2021-06-04 17:03 | Progress Note ---
Assessment and Plan #Hypertension #Brief sinus pauses on telemetryin setting of sedation and acute illness, do not appear to be hemodynamically significant #Respiratory failure requiring mechanical ventilation #Reported history of atrial fibrillation during ACLS resuscitative effortsno arrhythmia subsequently detected on telemetry #Diabetes No further pauses noted on telemetry. BP control improved. Continue labetalol, valsartan, and doxazosin. Continue supportive care for respiratory failure. Subjective Date of service: 06/04/21 Principal diagnosis: Ac hypoxemic resp failure; Cardiac arrest; Seizures; Sepsis; AMS; A-Fib RVR Interval history: Patient remains intubated. Nonresponsive to voice/touch. No cardiac events. Telemetryreviewed, sinus rhythm, no events Objective Vital Signs Temp Pulse Pulse Resp BP Pulse Ox 06/04/21 16:50 76 17 137/61 100 06/04/21 16:30 77 17 140/63 06/04/21 16:15 81 26 H 145/67 99 06/04/21 16:00 73 80 15 139/59 99 06/04/21 15:45 75 18 140/60 06/04/21 15:30 75 19 139/59 06/04/21 15:15 72 15 133/57 06/04/21 15:00 71 14 128/58 06/04/21 14:45 72 14 131/59 06/04/21 14:30 74 18 132/57 06/04/21 14:15 70 14 127/58 06/04/21 14:00 75 17 130/56 06/04/21 13:45 75 19 137/57 99 06/04/21 13:30 71 13 131/58 06/04/21 13:15 70 14 134/57 06/04/21 13:00 70 15 135/58 06/04/21 12:45 71 14 136/60 06/04/21 12:30 71 16 132/59 06/04/21 12:17 75 23 129/59 100 06/04/21 12:15 73 16 129/59 06/04/21 12:00 97.7 F 82 75 16 140/69 06/04/21 11:45 71 20 133/61 06/04/21 11:30 70 17 127/58 100 09/26/21 11:15 73 19 131/60 100 06/04/21 11:00 69 16 122/57 100 06/04/21 10:45 71 17 126/60 100 06/04/21 10:30 72 13 138/65 100 06/04/21 10:15 73 18 137/61 99 06/04/21 10:00 79 19 150/63 98 06/04/21 09:45 77 17 158/63 99 06/04/21 09:43 78 158/63 06/04/21 09:30 81 22 158/63 97 06/04/21 09:15 75 16 146/58 98 06/04/21 09:00 80 19 154/60 97 06/04/21 08:45 80 20 155/64 97 06/04/21 08:30 79 21 149/60 100 06/04/21 08:20 85 23 151/58 99 06/04/21 08:15 79 15 151/58 99 06/04/21 08:00 97.9 F 77 79 14 149/63 99 06/04/21 07:45 80 15 156/60 99 06/04/21 07:30 78 14 148/61 99 06/04/21 07:15 74 15 146/58 99 06/04/21 07:00 76 15 145/57 99 06/04/21 06:45 78 15 153/58 100 06/04/21 06:40 81 19 100 06/04/21 06:31 76 35 H 140/84 99 06/04/21 06:15 76 14 142/59 99 06/04/21 06:00 77 14 141/56 99 06/04/21 05:45 78 14 145/62 99 06/04/21 05:30 78 13 144/58 98 06/04/21 05:15 79 14 144/57 98 06/04/21 05:00 78 14 143/58 98 06/04/21 04:45 82 13 148/62 99 06/04/21 04:35 76 145/62 100 06/04/21 04:30 77 15 145/62 99 06/04/21 04:15 78 15 145/61 98 06/04/21 04:00 97.6 F 78 15 149/60 98 06/04/21 03:55 79 153/60 06/04/21 03:45 80 14 153/60 97 06/04/21 03:42 81 79 19 100 06/04/21 03:30 81 15 155/62 97 06/04/21 03:15 80 14 151/60 97 06/04/21 03:00 81 14 154/63 97 06/04/21 02:45 79 14 144/62 97 06/04/21 02:30 81 16 154/62 97 06/04/21 02:15 81 15 155/66 98 06/04/21 02:00 78 16 149/60 98 06/04/21 01:45 81 16 151/64 97 06/04/21 01:40 81 17 100 06/04/21 01:30 81 14 148/61 97 06/04/21 01:15 80 14 151/60 98 06/04/21 01:00 82 23 163/66 97 06/04/21 00:45 78 13 149/62 98 06/04/21 00:30 77 14 142/64 99 06/04/21 00:15 80 14 150/62 100 06/04/21 00:07 82 18 147/61 100 06/04/21 00:00 98.3 F 78 14 147/61 99 06/03/21 23:50 74 17 100 06/03/21 23:45 79 14 150/63 99 06/03/21 23:43 77 150/60 100 06/03/21 23:30 75 15 150/60 99 06/03/21 23:15 78 15 142/63 99 06/03/21 23:00 77 15 141/60 99 06/03/21 22:45 76 14 138/62 99 06/03/21 22:30 77 14 134/53 99 06/03/21 22:15 77 14 146/63 100 06/03/21 22:00 74 13 129/60 99 06/03/21 21:45 77 13 136/60 100 06/03/21 21:30 76 13 134/58 100 06/03/21 21:15 77 13 142/63 100 06/03/21 21:00 79 15 146/65 100 06/03/21 20:45 83 11 L 162/68 100 06/03/21 20:35 81 162/68 21 20:34 81 162/68 21 20:32 81 162/68 21 20:31 81 162/68 09/25/21 20:30 82 14 162/68 06/03/21 20:15 81 14 156/65 06/03/21 20:00 98.2 F 82 14 158/67 06/03/21 19:45 85 18 163/69 06/03/21 19:30 87 17 170/70 06/03/21 19:26 84 157/68 06/03/21 19:15 84 14 157/68 06/03/21 19:00 84 82 15 156/69 06/03/21 18:45 82 15 156/69 06/03/21 18:30 80 14 154/64 06/03/21 18:15 81 14 166/74 06/03/21 18:00 81 14 161/68 06/03/21 17:45 82 15 150/64 99 06/03/21 17:30 86 20 166/74 06/03/21 17:15 83 15 165/68 100 - Physical Examination Narrative exam: Gen-intubated and sedated, unresponsive to voice/touch MouthET tube in place Neck-supple, no JVD CV-RRR, no murmurs Lungs-mechanical breath sounds bilaterally Abd-soft/nt/nd, obese Ext-warm to touch, no pedal edema Neuro-unresponsive to voice/touch, sedated Psych-not tested - Labs and Meds CBC 06/04/21 Range/Units 05:57 WBC 17.8 H (4.5-11.0) K/mm3 RBC 2.83 L (3.65-5.03) M/mm3 Hgb 9.6 L (10.1-14.3) gm/dl Hct 28.4 L (30.3-42.9) % Plt Count 262 (140-440) K/mm3 Comprehensive Metabolic Panel 06/04/21 Range/Units 05:57 Sodium 135 L (137-145) mmol/L Potassium 4.8 D (3.6-5.0) mmol/L Chloride 96.3 L (98-107) mmol/L Carbon Dioxide 26 (22-30) mmol/L BUN 51 H (7-17) mg/dL Creatinine 0.8 D (0.6-1.2) mg/dL Glucose 275 H (65-100) mg/dL Calcium 8.6 (8.4-10.2) mg/dL
[2021-06-05] MEDS: HEPARIN/ 0.45% NACL DRIP 25,000 UNIT/500 ML BAG IV SCH (01:14)
[2021-06-05] MEDS: INSULIN LISPRO 100 UNIT/ML SUB-Q SCH ×4 (01:16→18:07)
[2021-06-05] MEDS: METOCLOPRAMIDE 10 MG/2 ML INJ IV SCH ×2 (06:49→15:28)
[2021-06-05] MEDS: hydrALAZINE 25 MG TAB PO SCH ×3 (06:49→21:19)
[2021-06-05] MEDS: GLYCOPYRROLATE 2 MG TAB PO SCH ×3 (08:41→20:32)
[2021-06-05] MEDS: DOXAZOSIN 1 MG TAB PO SCH ×2 (10:07→21:20)
[2021-06-05] MEDS: levETIRAcetam 500 MG/5 ML ORAL LIQD FEEDTUBE SCH ×2 (10:07→21:21)
[2021-06-05] MEDS: SENNOSIDES/DOCUSATE SODIUM 8.6/50 MG TAB FEEDTUBE SCH ×2 (10:07→21:23)
[2021-06-05] MEDS: VALSARTAN 160MG TAB PO SCH ×2 (10:09→21:20)
[2021-06-05] MEDS: FAMOTIDINE 20 MG TAB FEEDTUBE SCH ×2 (10:12→21:22)
[2021-06-05] MEDS: INSULIN GLARGINE 100 UNITS/ML SUB-Q SCH (10:15)
--- NOTE | 2021-06-05 11:27 | Progress Note ---
Assessment and Plan Acute hypoxemic respiratory failure on MVS Cardiopulmonary arrest wtih ROSC Seizure disorder Sepsis Toxic metabolic encephalopathy, possible anoxia Atrial fibrillation with RVR Metabolic acidosis Bilateral lower lobe infiltrates - LTAC consult placed - talked to son at length and he needs to spend time at her bedside and assess her before they can make a decision on tracheostomy / PEG placement - KUB with NGT in place and non-specific bowel gas pattern; may be consistent with constipation al;so - continue care as below otherwise; - will likely need trach for safe liberation from MVS except there is significant improvement in mental status - continue scopolamine for secretion control - continue Keppra as AED - daily SAT and SBT assessment as tolerated - continue to wean supplemental oxygen for target O2 sat's > 90% acutely - VAP bundle addressed - continue lung protective strategies - continue bronchodilators with pulmonary hygiene per RT - wean per pulmonary driven protocols otherwise - continue accuchecks with glycemic control per SSI (While critically ill target blood glucose of 140-180 mg/dL; avoid hypoglycemia) - sedation prn for target RASS 0 to -1 - avoid nephrotoxins, renally dose all medications - continue to avoid benzodiazepine's, reduce the possibility of delirium - AB's per ID rec's - prn analgesia per CPOT score - Maintenance of sleep-wake cycle, avoid delirium - continue enteral nutritional support at goal rate as tolerated - G.I. & VTE prophylaxis - PT/OT/ROM exercises - continue mobility protocols for pressure ulcer prophylaxis - Monitor hemodynamics closely - continue other care per attending / other consultants - discharge planning ongoing concurrently COVID SPECIFIC INTERVENTIONS - COVID-19 PCR negative .... Re-evaluate in am & prn CONDITION: CRITICAL PROGNOSIS: GUARDED CODE STATUS: FULL CODE The high probability of a clinically significant, sudden or life-threatening deterioration of the [respiratory, cardiovascular & neurologic] system(s) required my full and direct attention, intervention and personal management. The aggregate critical care time was [31] minutes without overlap. Time includes spent on; [x] Data Review and interpretation [x] Patient assessment and monitoring of vital signs [x] Documentation [x] Medication orders and management Subjective Date of service: 06/05/21 Principal diagnosis: Ac hypoxemic resp failure; Cardiac arrest; Seizures; Sepsis; AMS; A-Fib RVR Interval history: Patient is seen today for: Acute hypoxemic respiratory failure; Cardiac arrest wtih ROSC; Seizure disorder; Sepsis; AMS; A-Fib with RVR Seen and examined at bedside; 24hour events reviewed; nursing and respiratory care staff consulted; no adverse overnight events reported to me; resting in bed; remains on MVS; weaning tenuously; no emesis or overt aspiration; AMS is persistent Objective Vital Signs - 12hr 06/04/21 06/04/21 06/04/21 23:31 23:45 23:55 Temperature 98.1 F Pulse Rate 74 74 Pulse Rate [ From Monitor] Respiratory 17 17 Rate Blood Pressure 131/57 118/52 O2 Sat by Pulse 98 99 Oximetry 06/05/21 06/05/21 06/05/21 00:00 00:15 00:30 Temperature Pulse Rate 74 72 73 Pulse Rate [ 73 From Monitor] Respiratory 22 25 H 14 Rate Blood Pressure 123/56 126/54 125/55 O2 Sat by Pulse 100 100 100 Oximetry 06/05/21 06/05/21 06/05/21 00:45 01:00 01:15 Temperature Pulse Rate 74 73 77 Pulse Rate [ From Monitor] Respiratory 15 13 14 Rate Blood Pressure 126/54 133/55 128/55 O2 Sat by Pulse 100 100 100 Oximetry 06/05/21 06/05/21 06/05/21 01:30 01:45 02:00 Temperature Pulse Rate 75 74 75 Pulse Rate [ From Monitor] Respiratory 14 13 13 Rate Blood Pressure 119/49 130/50 129/51 O2 Sat by Pulse 98 99 99 Oximetry 06/05/21 06/05/21 06/05/21 02:15 02:30 02:45 Temperature Pulse Rate 77 75 76 Pulse Rate [ From Monitor] Respiratory 16 13 16 Rate Blood Pressure 136/51 135/49 129/51 O2 Sat by Pulse 99 98 92 Oximetry 06/05/21 06/05/21 06/05/21 03:00 03:15 03:30 Temperature Pulse Rate 75 79 76 Pulse Rate [ From Monitor] Respiratory 16 20 14 Rate Blood Pressure 125/49 145/56 127/50 O2 Sat by Pulse 91 93 92 Oximetry 06/05/21 06/05/21 06/05/21 03:36 03:45 04:00 Temperature 97.8 F Pulse Rate 76 82 Pulse Rate [ 79 From Monitor] Respiratory 14 16 Rate Blood Pressure 130/51 154/58 O2 Sat by Pulse 94 97 Oximetry 09/06/05/21 06/05/21 04:16 04:30 04:45 Temperature Pulse Rate 79 81 78 Pulse Rate [ From Monitor] Respiratory 16 16 14 Rate Blood Pressure 171/51 153/63 140/68 O2 Sat by Pulse 100 100 98 Oximetry 06/05/21 06/05/21 06/05/21 04:47 05:00 05:15 Temperature Pulse Rate 79 77 78 Pulse Rate [ From Monitor] Respiratory 15 22 Rate Blood Pressure 140/68 151/64 165/63 O2 Sat by Pulse 100 96 95 Oximetry 06/05/21 06/05/21 06/05/21 05:30 05:45 06:00 Temperature Pulse Rate 81 82 80 Pulse Rate [ From Monitor] Respiratory 14 15 14 Rate Blood Pressure 154/74 149/64 151/63 O2 Sat by Pulse 96 94 95 Oximetry 06/05/21 06/05/21 06/05/21 06:15 06:30 06:45 Temperature Pulse Rate 84 79 77 Pulse Rate [ From Monitor] Respiratory 19 16 15 Rate Blood Pressure 159/69 148/65 141/59 O2 Sat by Pulse 95 95 93 Oximetry 06/05/21 06/05/21 06/05/21 06:49 07:00 07:15 Temperature Pulse Rate 77 79 80 Pulse Rate [ From Monitor] Respiratory 15 17 Rate Blood Pressure 141/59 156/60 157/67 O2 Sat by Pulse 95 95 Oximetry 06/05/21 06/05/21 06/05/21 07:30 07:45 08:00 Temperature 98 F Pulse Rate 77 75 78 Pulse Rate [ 84 From Monitor] Respiratory 15 17 13 Rate Blood Pressure 145/57 124/58 146/66 O2 Sat by Pulse 94 93 96 Oximetry 06/05/21 06/05/21 06/05/21 08:04 08:08 08:15 Temperature Pulse Rate 84 80 68 Pulse Rate [ From Monitor] Respiratory 23 23 Rate Blood Pressure 146/66 146/66 153/67 O2 Sat by Pulse 100 100 99 Oximetry 06/05/21 06/05/21 06/05/21 08:30 08:45 09:00 Temperature Pulse Rate 83 80 83 Pulse Rate [ From Monitor] Respiratory 25 H 20 22 Rate Blood Pressure 159/59 154/60 157/65 O2 Sat by Pulse 98 98 97 Oximetry 09/27/21 09/27/21 09/27/21 09:15 09:30 09:45 Temperature Pulse Rate 82 82 80 Pulse Rate [ From Monitor] Respiratory 20 17 17 Rate Blood Pressure 151/65 146/63 144/61 O2 Sat by Pulse 98 98 98 Oximetry 06/05/21 10:00 Temperature Pulse Rate 82 Pulse Rate [ From Monitor] Respiratory 20 Rate Blood Pressure 164/65 O2 Sat by Pulse 98 Oximetry Constitutional: appears uncomfortable, other (elderly female with mildly increased respiratory effort at rest on MVS) Eyes: non-icteric ENT: oropharynx moist, oropharyngeal exudate pre (clear), other (ETT at 23cm CHAPIN) Neck: supple, no lymphadenopathy Effort: mildly labored Ascultation: Bilateral: diminished breath sounds, rhonchi Percussion: Bilateral: not dull Cardiovascular: irregular rhythm, other (S1,S2) Gastrointestinal: normoactive bowel sounds Integumentary: normal Extremities: no cyanosis, pink and warm, pulses normal, other (Right femoral CVL) Neurologic: pupils equal and round, other (encephalopathic; sedated) Psychiatric: other (unable to assess) CBC and BMP: 06/06/21 04:57 06/06/21 04:57 ABG, PT/INR, D-dimer: ABG ABG pH 7.481 (7.320-7.450) H 06/02/21 04:13 POC ABG pCO2 36.9 mmHg (32.0-48.0) 06/02/21 04:13 ABG pCO2 30.3 mm Hg 05/29/21 05:28 POC ABG pO2 80.0 mmHg (83-108) L 06/02/21 04:13 ABG pO2 96.2 mm Hg (80.0-90.0) H 05/29/21 05:28 POC ABG HCO3 26.9 06/02/21 04:13 ABG O2 Saturation 95.7 (0-100) 06/02/21 04:13 PT/INR, D-dimer PT 15.0 Sec. (12.2-14.9) H 05/25/21 09:21 INR 1.13 (0.87-1.13) 05/25/21 09:21 D-Dimer > 55946 ng/mlDDU (0-234) H 05/25/21 09:21 Abnormal lab findings: Abnormal Labs 05/25/21 05/25/21 05/25/21 09:07 09:21 09:21 WBC 17.1 H RBC Hgb Hct MCV 106 H MCH 33 H RDW 15.6 H [place] # (Auto) Seg Neutrophils % Seg Neuts % (Manual) Lymphocytes % (Manual) Monocytes % (Manual) Seg Neutrophils # Seg Neutrophils # Man 10.1 H Lymphocytes # (Manual) 5.6 H Monocytes # (Manual) PT 15.0 H APTT 44.3 H D-Dimer > 30122 H Heparin Anti-Xa Level ABG pH 7.116 L POC ABG pCO2 POC ABG pO2 ABG pO2 ABG Hemoglobin ABG Oxyhemoglobin 93.7 L ABG Sodium ABG Potassium ABG Chloride ABG Glucose 395 H Carboxyhemoglobin Sodium Potassium Chloride Carbon Dioxide BUN Creatinine Glucose POC Glucose Lactic Acid Calcium Ferritin AST ALT Lactate Dehydrogenase Troponin T Total Protein Albumin HDL Cholesterol Arterial Blood Glucose 395 H Arterial Blood Ionized Calcium 4.4 L Urine WBC (Auto) 05/25/21 05/25/21 05/25/21 09:21 09:21 09:21 WBC RBC Hgb Hct MCV MCH RDW [place] # (Auto) Seg Neutrophils % Seg Neuts % (Manual) Lymphocytes % (Manual) Monocytes % (Manual) Seg Neutrophils # Seg Neutrophils # Man Lymphocytes # (Manual) Monocytes # (Manual) PT APTT D-Dimer Heparin Anti-Xa Level ABG pH POC ABG pCO2 POC ABG pO2 ABG pO2 ABG Hemoglobin ABG Oxyhemoglobin ABG Sodium ABG Potassium ABG Chloride ABG Glucose Carboxyhemoglobin Sodium Potassium Chloride Carbon Dioxide 10 L BUN Creatinine Glucose 423 H 424 H POC Glucose Lactic Acid Calcium 8.2 L Ferritin 321.6 H AST 162 H ALT 119 H Lactate Dehydrogenase 445 H Troponin T Total Protein 5.6 L Albumin 3.2 L HDL Cholesterol Arterial Blood Glucose Arterial Blood Ionized Calcium Urine WBC (Auto) 05/25/21 05/25/21 05/25/21 09:35 10:42 11:12 WBC RBC Hgb Hct MCV MCH RDW [place] # (Auto) Seg Neutrophils % Seg Neuts % (Manual) Lymphocytes % (Manual) Monocytes % (Manual) Seg Neutrophils # Seg Neutrophils # Man Lymphocytes # (Manual) Monocytes # (Manual) PT APTT D-Dimer Heparin Anti-Xa Level ABG pH POC ABG pCO2 POC ABG pO2 ABG pO2 ABG Hemoglobin ABG Oxyhemoglobin ABG Sodium ABG Potassium ABG Chloride ABG Glucose Carboxyhemoglobin Sodium Potassium Chloride Carbon Dioxide BUN Creatinine Glucose POC Glucose Lactic Acid 16.70 H* 7.70 H* Calcium Ferritin AST ALT Lactate Dehydrogenase Troponin T Total Protein Albumin HDL Cholesterol Arterial Blood Glucose Arterial Blood Ionized Calcium Urine WBC (Auto) 11.0 H 05/25/21 05/25/21 05/25/21 14:07 15:19 19:04 WBC RBC Hgb Hct MCV MCH RDW [place] # (Auto) Seg Neutrophils % Seg Neuts % (Manual) Lymphocytes % (Manual) Monocytes % (Manual) Seg Neutrophils # Seg Neutrophils # Man Lymphocytes # (Manual) Monocytes # (Manual) PT APTT D-Dimer Heparin Anti-Xa Level ABG pH POC ABG pCO2 POC ABG pO2 172.2 H ABG pO2 ABG Hemoglobin ABG Oxyhemoglobin 98.7 H ABG Sodium 135.7 L ABG Potassium ABG Chloride ABG Glucose 255 H Carboxyhemoglobin 0.3 L Sodium Potassium Chloride Carbon Dioxide BUN Creatinine Glucose POC Glucose Lactic Acid 3.90 H* Calcium Ferritin AST ALT Lactate Dehydrogenase Troponin T 0.226 H* D Total Protein Albumin HDL Cholesterol 64 H Arterial Blood Glucose 255 H Arterial Blood Ionized Calcium 3.8 L Urine WBC (Auto) 05/25/21 05/25/21 05/26/21 21:16 21:16 04:00 WBC RBC Hgb Hct MCV MCH RDW [place] # (Auto) Seg Neutrophils % Seg Neuts % (Manual) Lymphocytes % (Manual) Monocytes % (Manual) Seg Neutrophils # Seg Neutrophils # Man Lymphocytes # (Manual) Monocytes # (Manual) PT APTT D-Dimer Heparin Anti-Xa Level 1.19 H ABG pH 7.547 H POC ABG pCO2 POC ABG pO2 ABG pO2 ABG Hemoglobin 11.9 L ABG Oxyhemoglobin ABG Sodium 133.2 L ABG Potassium 3.1 L ABG Chloride ABG Glucose 243 H Carboxyhemoglobin 0.3 L Sodium Potassium Chloride Carbon Dioxide BUN Creatinine Glucose POC Glucose Lactic Acid 2.50 H* Calcium Ferritin AST ALT Lactate Dehydrogenase Troponin T Total Protein Albumin HDL Cholesterol Arterial Blood Glucose 243 H Arterial Blood Ionized Calcium Urine WBC (Auto) 05/26/21 05/26/21 05/26/21 05:49 05:49 17:33 WBC RBC Hgb Hct MCV MCH RDW [place] # (Auto) Seg Neutrophils % Seg Neuts % (Manual) Lymphocytes % (Manual) Monocytes % (Manual) Seg Neutrophils # Seg Neutrophils # Man Lymphocytes # (Manual) Monocytes # (Manual) PT APTT D-Dimer Heparin Anti-Xa Level ABG pH POC ABG pCO2 POC ABG pO2 ABG pO2 ABG Hemoglobin ABG Oxyhemoglobin ABG Sodium ABG Potassium ABG Chloride ABG Glucose Carboxyhemoglobin Sodium Potassium Chloride Carbon Dioxide BUN Creatinine Glucose 226 H POC Glucose 156 H Lactic Acid 2.30 H* Calcium 7.2 L Ferritin AST 111 H ALT 97 H Lactate Dehydrogenase Troponin T Total Protein 5.4 L Albumin 3.3 L HDL Cholesterol Arterial Blood Glucose Arterial Blood Ionized Calcium Urine WBC (Auto) 05/27/21 05/27/21 05/27/21 02:11 02:11 02:11 WBC 14.3 H RBC 3.27 L Hgb Hct MCV 99 H MCH 33 H RDW 15.3 H [place] # (Auto) 1.0 H Seg Neutrophils % Seg Neuts % (Manual) Lymphocytes % (Manual) Monocytes % (Manual) Seg Neutrophils # 10.0 H Seg Neutrophils # Man Lymphocytes # (Manual) Monocytes # (Manual) PT APTT D-Dimer Heparin Anti-Xa Level 0.80 H ABG pH POC ABG pCO2 POC ABG pO2 ABG pO2 ABG Hemoglobin ABG Oxyhemoglobin ABG Sodium ABG Potassium ABG Chloride ABG Glucose Carboxyhemoglobin Sodium Potassium 2.9 L* D Chloride Carbon Dioxide 31 H BUN 6 L Creatinine Glucose 215 H POC Glucose Lactic Acid Calcium 8.1 L Ferritin AST ALT Lactate Dehydrogenase Troponin T Total Protein Albumin HDL Cholesterol Arterial Blood Glucose Arterial Blood Ionized Calcium Urine WBC (Auto) 05/27/21 05/27/21 05/27/21 11:24 12:49 18:06 WBC RBC Hgb Hct MCV MCH RDW [place] # (Auto) Seg Neutrophils % Seg Neuts % (Manual) Lymphocytes % (Manual) Monocytes % (Manual) Seg Neutrophils # Seg Neutrophils # Man Lymphocytes # (Manual) Monocytes # (Manual) PT APTT D-Dimer Heparin Anti-Xa Level ABG pH POC ABG pCO2 POC ABG pO2 ABG pO2 ABG Hemoglobin ABG Oxyhemoglobin ABG Sodium ABG Potassium ABG Chloride ABG Glucose Carboxyhemoglobin Sodium Potassium Chloride Carbon Dioxide BUN Creatinine Glucose POC Glucose 151 H 165 H 137 H Lactic Acid Calcium Ferritin AST ALT Lactate Dehydrogenase Troponin T Total Protein Albumin HDL Cholesterol Arterial Blood Glucose Arterial Blood Ionized Calcium Urine WBC (Auto) 05/28/21 05/28/21 05/28/21 04:00 04:00 06:02 WBC 13.5 H RBC 3.05 L Hgb Hct MCV 100 H MCH 34 H RDW [place] # (Auto) 0.9 H Seg Neutrophils % 78.2 H Seg Neuts % (Manual) Lymphocytes % (Manual) Monocytes % (Manual) Seg Neutrophils # 10.6 H Seg Neutrophils # Man Lymphocytes # (Manual) Monocytes # (Manual) PT APTT D-Dimer Heparin Anti-Xa Level ABG pH 7.507 H POC ABG pCO2 POC ABG pO2 ABG pO2 ABG Hemoglobin 10.6 L ABG Oxyhemoglobin ABG Sodium 129.4 L ABG Potassium ABG Chloride ABG Glucose 243 H Carboxyhemoglobin 0.2 L Sodium 136 L D Potassium Chloride Carbon Dioxide BUN Creatinine Glucose 215 H POC Glucose Lactic Acid Calcium Ferritin AST ALT Lactate Dehydrogenase Troponin T Total Protein Albumin HDL Cholesterol Arterial Blood Glucose 243 H Arterial Blood Ionized Calcium 4.1 L Urine WBC (Auto) 05/28/21 05/28/21 05/29/21 11:27 23:02 04:30 WBC RBC Hgb 9.3 L Hct 26.7 L MCV MCH RDW [place] # (Auto) Seg Neutrophils % Seg Neuts % (Manual) Lymphocytes % (Manual) Monocytes % (Manual) Seg Neutrophils # Seg Neutrophils # Man Lymphocytes # (Manual) Monocytes # (Manual) PT APTT D-Dimer Heparin Anti-Xa Level ABG pH POC ABG pCO2 POC ABG pO2 ABG pO2 ABG Hemoglobin ABG Oxyhemoglobin ABG Sodium ABG Potassium ABG Chloride ABG Glucose Carboxyhemoglobin Sodium Potassium Chloride Carbon Dioxide BUN Creatinine Glucose POC Glucose 220 H 212 H Lactic Acid Calcium Ferritin AST ALT Lactate Dehydrogenase Troponin T Total Protein Albumin HDL Cholesterol Arterial Blood Glucose Arterial Blood Ionized Calcium Urine WBC (Auto) 05/29/21 05/29/21 05/29/21 05:02 05:28 12:55 WBC RBC Hgb Hct MCV MCH RDW [place] # (Auto) Seg Neutrophils % Seg Neuts % (Manual) Lymphocytes % (Manual) Monocytes % (Manual) Seg Neutrophils # Seg Neutrophils # Man Lymphocytes # (Manual) Monocytes # (Manual) PT APTT D-Dimer Heparin Anti-Xa Level ABG pH 7.516 H POC ABG pCO2 POC ABG pO2 ABG pO2 96.2 H ABG Hemoglobin 7.5 L ABG Oxyhemoglobin ABG Sodium ABG Potassium ABG Chloride ABG Glucose Carboxyhemoglobin Sodium Potassium Chloride Carbon Dioxide BUN Creatinine Glucose POC Glucose 197 H 251 H Lactic Acid Calcium Ferritin AST ALT Lactate Dehydrogenase Troponin T Total Protein Albumin HDL Cholesterol Arterial Blood Glucose Arterial Blood Ionized Calcium Urine WBC (Auto) 05/29/21 05/29/21 05/30/21 18:23 23:31 04:10 WBC RBC Hgb Hct MCV MCH RDW [place] # (Auto) Seg Neutrophils % Seg Neuts % (Manual) Lymphocytes % (Manual) Monocytes % (Manual) Seg Neutrophils # Seg Neutrophils # Man Lymphocytes # (Manual) Monocytes # (Manual) PT APTT D-Dimer Heparin Anti-Xa Level ABG pH 7.532 H POC ABG pCO2 30.0 L POC ABG pO2 78.5 L ABG pO2 ABG Hemoglobin 11.3 L ABG Oxyhemoglobin ABG Sodium 126.7 L ABG Potassium ABG Chloride 94.0 L ABG Glucose 270 H Carboxyhemoglobin 0.4 L Sodium Potassium Chloride Carbon Dioxide BUN Creatinine Glucose POC Glucose 236 H 252 H Lactic Acid Calcium Ferritin AST ALT Lactate Dehydrogenase Troponin T Total Protein Albumin HDL Cholesterol Arterial Blood Glucose 270 H Arterial Blood Ionized Calcium 4.4 L Urine WBC (Auto) 05/30/21 05/30/21 05/30/21 05:06 06:23 11:15 WBC RBC Hgb Hct MCV MCH RDW [place] # (Auto) Seg Neutrophils % Seg Neuts % (Manual) Lymphocytes % (Manual) Monocytes % (Manual) Seg Neutrophils # Seg Neutrophils # Man Lymphocytes # (Manual) Monocytes # (Manual) PT APTT D-Dimer Heparin Anti-Xa Level ABG pH POC ABG pCO2 POC ABG pO2 ABG pO2 ABG Hemoglobin ABG Oxyhemoglobin ABG Sodium ABG Potassium ABG Chloride ABG Glucose Carboxyhemoglobin Sodium 126 L D Potassium Chloride 91.9 L Carbon Dioxide 20 L D BUN Creatinine 0.4 L Glucose 274 H POC Glucose 242 H 346 H Lactic Acid Calcium Ferritin AST ALT Lactate Dehydrogenase Troponin T Total Protein Albumin HDL Cholesterol Arterial Blood Glucose Arterial Blood Ionized Calcium Urine WBC (Auto) 05/30/21 05/30/21 05/30/21 11:19 11:19 11:19 WBC 18.9 H RBC 3.36 L Hgb Hct MCV 102 H MCH 33 H RDW 15.5 H [place] # (Auto) Seg Neutrophils % Seg Neuts % (Manual) Lymphocytes % (Manual) Monocytes % (Manual) Seg Neutrophils # Seg Neutrophils # Man Lymphocytes # (Manual) Monocytes # (Manual) PT APTT D-Dimer Heparin Anti-Xa Level < 0.10 L ABG pH POC ABG pCO2 POC ABG pO2 ABG pO2 ABG Hemoglobin ABG Oxyhemoglobin ABG Sodium ABG Potassium ABG Chloride ABG Glucose Carboxyhemoglobin Sodium 124 L Potassium Chloride Carbon Dioxide BUN Creatinine Glucose POC Glucose Lactic Acid Calcium Ferritin AST ALT Lactate Dehydrogenase Troponin T Total Protein Albumin HDL Cholesterol Arterial Blood Glucose Arterial Blood Ionized Calcium Urine WBC (Auto) 05/30/21 05/30/21 05/31/21 17:02 23:27 03:37 WBC RBC Hgb Hct MCV MCH RDW [place] # (Auto) Seg Neutrophils % Seg Neuts % (Manual) Lymphocytes % (Manual) Monocytes % (Manual) Seg Neutrophils # Seg Neutrophils # Man Lymphocytes # (Manual) Monocytes # (Manual) PT APTT D-Dimer Heparin Anti-Xa Level ABG pH POC ABG pCO2 POC ABG pO2 ABG pO2 ABG Hemoglobin 11.6 L ABG Oxyhemoglobin ABG Sodium 130.0 L ABG Potassium ABG Chloride 95.0 L ABG Glucose 292 H Carboxyhemoglobin Sodium Potassium Chloride Carbon Dioxide BUN Creatinine Glucose POC Glucose 270 H 237 H Lactic Acid Calcium Ferritin AST ALT Lactate Dehydrogenase Troponin T Total Protein Albumin HDL Cholesterol Arterial Blood Glucose 292 H Arterial Blood Ionized Calcium Urine WBC (Auto) 05/31/21 05/31/21 05/31/21 04:00 04:00 05:20 WBC 20.9 H RBC 3.13 L Hgb Hct MCV 99 H MCH 34 H RDW [place] # (Auto) Seg Neutrophils % Seg Neuts % (Manual) 81.0 H Lymphocytes % (Manual) 8.0 L Monocytes % (Manual) 9.0 H Seg Neutrophils # Seg Neutrophils # Man 16.9 H Lymphocytes # (Manual) Monocytes # (Manual) 1.9 H PT APTT D-Dimer Heparin Anti-Xa Level ABG pH POC ABG pCO2 POC ABG pO2 ABG pO2 ABG Hemoglobin ABG Oxyhemoglobin ABG Sodium ABG Potassium ABG Chloride ABG Glucose Carboxyhemoglobin Sodium 133 L D Potassium Chloride 95.4 L Carbon Dioxide 21 L BUN 30 H Creatinine 0.5 L Glucose 305 H POC Glucose 269 H Lactic Acid Calcium Ferritin AST ALT Lactate Dehydrogenase Troponin T Total Protein Albumin HDL Cholesterol Arterial Blood Glucose Arterial Blood Ionized Calcium Urine WBC (Auto) 05/31/21 05/31/21 05/31/21 11:40 18:16 23:25 WBC RBC Hgb Hct MCV MCH RDW [place] # (Auto) Seg Neutrophils % Seg Neuts % (Manual) Lymphocytes % (Manual) Monocytes % (Manual) Seg Neutrophils # Seg Neutrophils # Man Lymphocytes # (Manual) Monocytes # (Manual) PT APTT D-Dimer Heparin Anti-Xa Level ABG pH POC ABG pCO2 POC ABG pO2 ABG pO2 ABG Hemoglobin ABG Oxyhemoglobin ABG Sodium ABG Potassium ABG Chloride ABG Glucose Carboxyhemoglobin Sodium Potassium Chloride Carbon Dioxide BUN Creatinine Glucose POC Glucose 364 H 250 H 231 H Lactic Acid Calcium Ferritin AST ALT Lactate Dehydrogenase Troponin T Total Protein Albumin HDL Cholesterol Arterial Blood Glucose Arterial Blood Ionized Calcium Urine WBC (Auto) 06/01/21 06/01/21 06/01/21 04:03 04:58 04:58 WBC 20.7 H RBC 3.20 L Hgb Hct MCV 99 H MCH 34 H RDW [place] # (Auto) Seg Neutrophils % Seg Neuts % (Manual) 82.0 H Lymphocytes % (Manual) 9.0 L Monocytes % (Manual) Seg Neutrophils # Seg Neutrophils # Man 17.0 H Lymphocytes # (Manual) Monocytes # (Manual) 1.4 H PT APTT D-Dimer Heparin Anti-Xa Level 1.18 H ABG pH 7.520 H POC ABG pCO2 POC ABG pO2 66.0 L ABG pO2 ABG Hemoglobin ABG Oxyhemoglobin 92.5 L ABG Sodium 133.6 L ABG Potassium ABG Chloride ABG Glucose 250 H Carboxyhemoglobin Sodium Potassium Chloride Carbon Dioxide BUN Creatinine Glucose POC Glucose Lactic Acid Calcium Ferritin AST ALT Lactate Dehydrogenase Troponin T Total Protein Albumin HDL Cholesterol Arterial Blood Glucose 250 H Arterial Blood Ionized Calcium 4.4 L Urine WBC (Auto) 06/01/21 06/01/21 06/01/21 04:58 05:29 11:39 WBC RBC Hgb Hct MCV MCH RDW [place] # (Auto) Seg Neutrophils % Seg Neuts % (Manual) Lymphocytes % (Manual) Monocytes % (Manual) Seg Neutrophils # Seg Neutrophils # Man Lymphocytes # (Manual) Monocytes # (Manual) PT APTT D-Dimer Heparin Anti-Xa Level ABG pH POC ABG pCO2 POC ABG pO2 ABG pO2 ABG Hemoglobin ABG Oxyhemoglobin ABG Sodium ABG Potassium ABG Chloride ABG Glucose Carboxyhemoglobin Sodium 131 L Potassium Chloride 95.7 L Carbon Dioxide BUN 30 H Creatinine 0.5 L Glucose 241 H POC Glucose 215 H 299 H Lactic Acid Calcium Ferritin AST ALT Lactate Dehydrogenase Troponin T Total Protein Albumin HDL Cholesterol Arterial Blood Glucose Arterial Blood Ionized Calcium Urine WBC (Auto) 06/01/21 06/02/21 06/02/21 18:14 00:12 02:25 WBC 17.4 H RBC 3.09 L Hgb Hct MCV 101 H MCH 34 H RDW 15.5 H [place] # (Auto) Seg Neutrophils % Seg Neuts % (Manual) Lymphocytes % (Manual) Monocytes % (Manual) Seg Neutrophils # Seg Neutrophils # Man Lymphocytes # (Manual) Monocytes # (Manual) PT APTT D-Dimer Heparin Anti-Xa Level ABG pH POC ABG pCO2 POC ABG pO2 ABG pO2 ABG Hemoglobin ABG Oxyhemoglobin ABG Sodium ABG Potassium ABG Chloride ABG Glucose Carboxyhemoglobin Sodium Potassium Chloride Carbon Dioxide BUN Creatinine Glucose POC Glucose 215 H 175 H Lactic Acid Calcium Ferritin AST ALT Lactate Dehydrogenase Troponin T Total Protein Albumin HDL Cholesterol Arterial Blood Glucose Arterial Blood Ionized Calcium Urine WBC (Auto) 06/02/21 06/02/21 06/02/21 02:25 04:13 04:58 WBC RBC Hgb Hct MCV MCH RDW [place] # (Auto) Seg Neutrophils % Seg Neuts % (Manual) Lymphocytes % (Manual) Monocytes % (Manual) Seg Neutrophils # Seg Neutrophils # Man Lymphocytes # (Manual) Monocytes # (Manual) PT APTT D-Dimer Heparin Anti-Xa Level ABG pH 7.481 H POC ABG pCO2 POC ABG pO2 80.0 L ABG pO2 ABG Hemoglobin 11.1 L ABG Oxyhemoglobin ABG Sodium 131.9 L ABG Potassium ABG Chloride ABG Glucose 231 H Carboxyhemoglobin 0.2 L Sodium 134 L Potassium Chloride 95.8 L Carbon Dioxide BUN 31 H Creatinine 0.5 L Glucose 168 H POC Glucose 230 H Lactic Acid Calcium Ferritin AST ALT Lactate Dehydrogenase Troponin T Total Protein Albumin HDL Cholesterol Arterial Blood Glucose 231 H Arterial Blood Ionized Calcium Urine WBC (Auto) 06/02/21 06/02/21 06/02/21 11:27 17:47 23:53 WBC RBC Hgb Hct MCV MCH RDW [place] # (Auto) Seg Neutrophils % Seg Neuts % (Manual) Lymphocytes % (Manual) Monocytes % (Manual) Seg Neutrophils # Seg Neutrophils # Man Lymphocytes # (Manual) Monocytes # (Manual) PT APTT D-Dimer Heparin Anti-Xa Level 0.80 H ABG pH POC ABG pCO2 POC ABG pO2 ABG pO2 ABG Hemoglobin ABG Oxyhemoglobin ABG Sodium ABG Potassium ABG Chloride ABG Glucose Carboxyhemoglobin Sodium Potassium Chloride Carbon Dioxide BUN Creatinine Glucose POC Glucose 259 H 297 H Lactic Acid Calcium Ferritin AST ALT Lactate Dehydrogenase Troponin T Total Protein Albumin HDL Cholesterol Arterial Blood Glucose Arterial Blood Ionized Calcium Urine WBC (Auto) 06/03/21 06/03/21 06/03/21 00:05 05:23 09:10 WBC RBC Hgb Hct MCV MCH RDW [place] # (Auto) Seg Neutrophils % Seg Neuts % (Manual) Lymphocytes % (Manual) Monocytes % (Manual) Seg Neutrophils # Seg Neutrophils # Man Lymphocytes # (Manual) Monocytes # (Manual) PT APTT D-Dimer Heparin Anti-Xa Level 0.84 H ABG pH POC ABG pCO2 POC ABG pO2 ABG pO2 ABG Hemoglobin ABG Oxyhemoglobin ABG Sodium ABG Potassium ABG Chloride ABG Glucose Carboxyhemoglobin Sodium Potassium Chloride Carbon Dioxide BUN Creatinine Glucose POC Glucose 268 H 170 H Lactic Acid Calcium Ferritin AST ALT Lactate Dehydrogenase Troponin T Total Protein Albumin HDL Cholesterol Arterial Blood Glucose Arterial Blood Ionized Calcium Urine WBC (Auto) 06/03/21 06/03/21 06/03/21 12:06 20:22 23:30 WBC RBC Hgb Hct MCV MCH RDW [place] # (Auto) Seg Neutrophils % Seg Neuts % (Manual) Lymphocytes % (Manual) Monocytes % (Manual) Seg Neutrophils # Seg Neutrophils # Man Lymphocytes # (Manual) Monocytes # (Manual) PT APTT D-Dimer Heparin Anti-Xa Level ABG pH POC ABG pCO2 POC ABG pO2 ABG pO2 ABG Hemoglobin ABG Oxyhemoglobin ABG Sodium ABG Potassium ABG Chloride ABG Glucose Carboxyhemoglobin Sodium Potassium Chloride Carbon Dioxide BUN Creatinine Glucose POC Glucose 275 H 260 H 215 H Lactic Acid Calcium Ferritin AST ALT Lactate Dehydrogenase Troponin T Total Protein Albumin HDL Cholesterol Arterial Blood Glucose Arterial Blood Ionized Calcium Urine WBC (Auto) 06/04/21 06/04/21 06/04/21 05:03 05:57 05:57 WBC 17.8 H RBC 2.83 L Hgb 9.6 L Hct 28.4 L MCV 100 H MCH 34 H RDW 15.5 H [place] # (Auto) Seg Neutrophils % Seg Neuts % (Manual) 83.0 H Lymphocytes % (Manual) 4.0 L Monocytes % (Manual) Seg Neutrophils # Seg Neutrophils # Man 14.8 H Lymphocytes # (Manual) 0.7 L Monocytes # (Manual) 1.1 H PT APTT D-Dimer Heparin Anti-Xa Level ABG pH POC ABG pCO2 POC ABG pO2 ABG pO2 ABG Hemoglobin ABG Oxyhemoglobin ABG Sodium ABG Potassium ABG Chloride ABG Glucose Carboxyhemoglobin Sodium 135 L Potassium Chloride 96.3 L Carbon Dioxide BUN 51 H Creatinine Glucose 275 H POC Glucose 257 H Lactic Acid Calcium Ferritin AST ALT Lactate Dehydrogenase Troponin T Total Protein Albumin HDL Cholesterol Arterial Blood Glucose Arterial Blood Ionized Calcium Urine WBC (Auto) 06/04/21 06/04/21 06/04/21 09:48 11:08 17:33 WBC RBC Hgb Hct MCV MCH RDW [place] # (Auto) Seg Neutrophils % Seg Neuts % (Manual) Lymphocytes % (Manual) Monocytes % (Manual) Seg Neutrophils # Seg Neutrophils # Man Lymphocytes # (Manual) Monocytes # (Manual) PT APTT D-Dimer Heparin Anti-Xa Level ABG pH POC ABG pCO2 POC ABG pO2 ABG pO2 ABG Hemoglobin ABG Oxyhemoglobin ABG Sodium ABG Potassium ABG Chloride ABG Glucose Carboxyhemoglobin Sodium Potassium Chloride Carbon Dioxide BUN Creatinine Glucose POC Glucose 198 H 234 H 247 H Lactic Acid Calcium Ferritin AST ALT Lactate Dehydrogenase Troponin T Total Protein Albumin HDL Cholesterol Arterial Blood Glucose Arterial Blood Ionized Calcium Urine WBC (Auto) 06/04/21 06/05/21 06/05/21 23:30 05:38 11:24 WBC RBC Hgb Hct MCV MCH RDW [place] # (Auto) Seg Neutrophils % Seg Neuts % (Manual) Lymphocytes % (Manual) Monocytes % (Manual) Seg Neutrophils # Seg Neutrophils # Man Lymphocytes # (Manual) Monocytes # (Manual) PT APTT D-Dimer Heparin Anti-Xa Level ABG pH POC ABG pCO2 POC ABG pO2 ABG pO2 ABG Hemoglobin ABG Oxyhemoglobin ABG Sodium ABG Potassium ABG Chloride ABG Glucose Carboxyhemoglobin Sodium Potassium Chloride Carbon Dioxide BUN Creatinine Glucose POC Glucose 192 H 192 H 287 H Lactic Acid Calcium Ferritin AST ALT Lactate Dehydrogenase Troponin T Total Protein Albumin HDL Cholesterol Arterial Blood Glucose Arterial Blood Ionized Calcium Urine WBC (Auto) Chest x-ray: pending Allied health notes reviewed: nursing
--- NOTE | 2021-06-05 11:51 | Progress Note ---
<TOBIAS QUIROS - Last Filed: 06/05/21 14:57> Assessment and Plan Assessment and plan: 65-year-old female with PmHx of nonepileptic spells, PTSD, closed head injury, hypertension, diabetes, CAD, who came in s/p cardiac arrest Hospital Course to Date: 06/05/21- Patient remains ETT and on vent support. Off sedation with some improvement in neuro status, but is not following commands. Patient is tolerating SBT trial this am, still on the heparin gtt. AM labs is pending. Patient is still hyperglycemic, increased Qhs lantus. Continue supportive care. 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 - Per Neuro 05/29 EEG no sign of seizures - Patient is off sedation, open eyes spontaneously, pupils reactive, with +gag and cough. - Not following commands, no movement to stimuli - Continue Keppra and PRN ativan for seizure - Continue Supportive care #CV: s/p Cardiac Arrest #AFIB with RVR- resolved #Hypertension - Remains SR on the monitor - Normotensive - Continue antihypertensives: Labetalol, Hydralazine, valsartan, & Doxazosin - PRN hydralazine for SBP> 160 - Continue AC- Heparin gtt per protocol - Cardio is following #Resp.: Acute Hypoxemic Respitaroy Failure s/p cardiac Arrest #Bilateral Lower Lobe Infiltrates- improved - 05/25 ETT- Vent setting: SBT: 30%, 04/20 - 05/29 CXR- improved lung aeration - Patient is tolerating breathing trial, continue daily SBT - ABG per [facility] - Continue supplemental O2 for SPO2 goal>90% - D/w [facility] rec Trach and PEG. - [facility] spoke with Patient's son- family not ready for trach at this time - Case management for LTACH placement #GI: Abdominal distention possibly due to Constipation #Vomitting- resolved - last documented BM 06/01 - 06/03 KUB showed no sign. abnormality - Bowel Regimen- senokot, Miralax added - TF at goal - Continue PPI- pecid reglan #: NAP - Purewick in placed - Net - 955ml in last 24hrs - Continue strict I&Os - Continue to monitor renal function, am labs ordered #ID: Leukocytosis #Sepsis- resolved #Bilateral Lower Lobe Infiltrates- improved - 05/25 Bcultx2-neg; 05/25 Tracheal aspirate-neg; 05/25 Urine cult- neg - 05/29 CXR- improved lung aeration - WBCs trending down; Wbcs 17.8 0n 06/04, today lab is pending - Afebrile TMAX 98.1, not on pressors - Continue to monitor- AM labs ordered #Endo: Hyperglycemia; H/o DM - SSI Q6hrs - Lantus increased - If hyperglycemia persist consider more frequent coverage, SSI Q4hrs #DVT prophylaxis - SCDs to bilateral lower extremities while in bed - Continue AC- heparin gtt The high probability of a clinically significant, sudden or life threatening deterioration of the [neuro, Pulmo, Endo] system(s) required my full and direct attention, intervention and personal management. The aggregate critical care time was [60] minutes. This time is in addition to time spent performing reported procedures but includes the following: [x] Data Review and interpretation [x] Patient assessment and monitoring of vital signs [x] Documentation [x] Medication orders and management I saw and evaluated the patient. Discussed with the nurse practitioner and agree with their findings and plan as documented in this note. Disposition Plan: ICU Total Time Spent with Patient (Minutes): 60 History Interval history: Patient seen and examined at the bedside. Remains on vent, tolerating SBT trial. Awake and opening eyes spontaneously, however she is not following any commands, no movement to pain stimuli, +gag and cough. Per RN no significant events overnight Hospitalist Physical - Constitutional Vitals: Temp Pulse Resp BP Pulse Ox 98 F 74 19 127/60 94 06/05/21 08:00 06/05/21 11:45 06/05/21 11:45 06/05/21 11:45 06/05/21 11:45 General appearance: Present: no acute distress - EENT Eyes: Present: PERRL - Respiratory Respiratory effort: normal Respiratory: bilateral: diminished - Cardiovascular Rhythm: regular Heart Sounds: Present: S1 & S2 - Extremities Extremities: no ischemia, pulses intact, pulses symmetrical Extremity abnormal: edema - Peripheral Assessment Generalized Edema Type: Non-pitting Edema Degree: 1+ Capillary Refill: < 3 seconds Skin Temperature: Warm Peripheral Pulses: within normal limits - Abdominal General gastrointestinal: soft, non-tender, normal bowel sounds - Integumentary Integumentary: Present: warm, dry - Neurologic Neurologic: other (Awake, open and close eyes spontaneously, +gag and cough, Not following commands) - Allied Health Allied health notes reviewed: nursing HEART Score - HEART Score Troponin: Troponin T 0.226 ng/mL (0.00-0.029) H* D 05/25/21 15:19 Results - Labs CBC & Chem 7: 06/05/21 12:20 06/05/21 12:20 Labs: Laboratory Last Values WBC 17.8 K/mm3 (4.5-11.0) H 06/04/21 05:57 RBC 2.83 M/mm3 (3.65-5.03) L 06/04/21 05:57 Hgb 9.6 gm/dl (10.1-14.3) L 06/04/21 05:57 Hct 28.4 % (30.3-42.9) L 06/04/21 05:57 MCV 100 fl (79-97) H 06/04/21 05:57 MCH 34 pg (28-32) H 06/04/21 05:57 MCHC 34 % (30-34) 06/04/21 05:57 RDW 15.5 % (13.2-15.2) H 06/04/21 05:57 Plt Count 262 K/mm3 (140-440) 06/04/21 05:57 Lymph % (Auto) 14.3 % (13.4-35.0) 05/28/21 04:00 [place] % (Auto) 6.9 % (0.0-7.3) 05/28/21 04:00 Eos % (Auto) 0.1 % (0.0-4.3) 05/28/21 04:00 Baso % (Auto) 0.5 % (0.0-1.8) 05/28/21 04:00 Lymph # (Auto) 1.9 K/mm3 (1.2-5.4) 05/28/21 04:00 [place] # (Auto) 0.9 K/mm3 (0.0-0.8) H 05/28/21 04:00 Eos # (Auto) 0.0 K/mm3 (0.0-0.4) 05/28/21 04:00 Baso # (Auto) 0.1 K/mm3 (0.0-0.1) 05/28/21 04:00 Add Manual Diff Complete 06/04/21 05:57 Total Counted 100 06/04/21 05:57 Seg Neutrophils % 78.2 % (40.0-70.0) H 05/28/21 04:00 Seg Neuts % (Manual) 83.0 % (40.0-70.0) H 06/04/21 05:57 Band Neutrophils % 4.0 % 06/04/21 05:57 Lymphocytes % (Manual) 4.0 % (13.4-35.0) L 06/04/21 05:57 Monocytes % (Manual) 6.0 % (0.0-7.3) 06/04/21 05:57 Eosinophils % (Manual) 2.0 % (0.0-4.3) 06/04/21 05:57 Metamyelocytes % 1.0 % 05/25/21 09: Myelocytes % 1.0 % 06/04/21 05:57 Nucleated RBC % Not Reportable 06/04/21 05:57 Seg Neutrophils # 10.6 K/mm3 (1.8-7.7) H 05/28/21 04:00 Seg Neutrophils # Man 14.8 K/mm3 (1.8-7.7) H 06/04/21 05:57 Band Neutrophils # 0.7 K/mm3 06/04/21 05:57 Lymphocytes # (Manual) 0.7 K/mm3 (1.2-5.4) L 06/04/21 05:57 Abs React Lymphs (Man) 0.0 K/mm3 06/04/21 05:57 Monocytes # (Manual) 1.1 K/mm3 (0.0-0.8) H 06/04/21 05:57 Eosinophils # (Manual) 0.4 K/mm3 (0.0-0.4) 06/04/21 05:57 Basophils # (Manual) 0.0 K/mm3 (0.0-0.1) 06/04/21 05:57 Metamyelocytes # 0.0 K/mm3 06/04/21 05:57 Myelocytes # 0.2 K/mm3 06/04/21 05:57 Promyelocytes # 0.0 K/mm3 06/04/21 05:57 Blast Cells # 0.0 K/mm3 06/04/21 05:57 WBC Morphology Not Reportable 06/04/21 05:57 Hypersegmented Neuts Not Reportable 06/04/21 05:57 Hyposegmented Neuts Not Reportable 06/04/21 05:57 Hypogranular Neuts Not Reportable 06/04/21 05:57 Smudge Cells Not Reportable 06/04/21 05:57 Toxic Granulation Not Reportable 06/04/21 05:57 Toxic Vacuolation Not Reportable 06/04/21 05:57 Dohle Bodies Not Reportable 06/04/21 05:57 Pelger-Huet Anomaly Not Reportable 06/04/21 05:57 Peter Rods Not Reportable 06/04/21 05:57 Platelet Estimate Consistent w auto 06/04/21 05:57 Clumped Platelets Not Reportable 06/04/21 05:57 Plt Clumps, EDTA Not Reportable 06/04/21 05:57 Large Platelets Not Reportable 06/04/21 05:57 Giant Platelets Not Reportable 06/04/21 05:57 Platelet Satelliting Not Reportable 06/04/21 05:57 Plt Morphology Comment Not Reportable 06/04/21 05:57 RBC Morphology Normal 06/04/21 05:57 Dimorphic RBCs Not Reportable 06/04/21 05:57 Polychromasia Not Reportable 06/04/21 05:57 Hypochromasia Not Reportable 06/04/21 05:57 Poikilocytosis Not Reportable 06/04/21 05:57 Anisocytosis Not Reportable 06/04/21 05:57 Microcytosis Not Reportable 06/04/21 05:57 Macrocytosis Not Reportable 06/04/21 05:57 Spherocytes Not Reportable 06/04/21 05:57 Pappenheimer Bodies Not Reportable 06/04/21 05:57 Sickle Cells Not Reportable 06/04/21 05:57 Target Cells Not Reportable 06/04/21 05:57 Tear Drop Cells Not Reportable 06/04/21 05:57 Ovalocytes Not Reportable 06/04/21 05:57 Helmet Cells Not Reportable 06/04/21 05:57 Toribio-Mccracken Bodies Not Reportable 06/04/21 05:57 [place] Rings Not Reportable 06/04/21 05:57 Lin Cells Not Reportable 06/04/21 05:57 Bite Cells Not Reportable 06/04/21 05:57 Crenated Cell Not Reportable 06/04/21 05:57 Elliptocytes Not Reportable 06/04/21 05:57 Acanthocytes (Spur) Not Reportable 06/04/21 05:57 Rouleaux Not Reportable 06/04/21 05:57 Hemoglobin C Crystals Not Reportable 06/04/21 05:57 Schistocytes Not Reportable 06/04/21 05:57 Malaria parasites Not Reportable 06/04/21 05:57 Shravan Bodies Not Reportable 06/04/21 05:57 Hem Pathologist Commnt No 06/04/21 05:57 PT 15.0 Sec. (12.2-14.9) H 05/25/21 09: INR 1.13 (0.87-1.13) 05/25/21 09:21 APTT 44.3 Sec. (24.2-36.6) H 05/25/21 09:21 D-Dimer > 52849 ng/mlDDU (0-234) H 05/25/21 09:21 Heparin Anti-Xa Level 0.41 U.I./ml (0.3-0.7) 06/04/21 23:21 ABG pH 7.481 (7.320-7.450) H 06/02/21 04:13 POC ABG pCO2 36.9 mmHg (32.0-48.0) 06/02/21 04:13 ABG pCO2 30.3 mm Hg 05/29/21 05:28 POC ABG pO2 80.0 mmHg (83-108) L 06/02/21 04:13 ABG pO2 96.2 mm Hg (80.0-90.0) H 05/29/21 05:28 POC ABG HCO3 26.9 06/02/21 04:13 ABG HCO3 24.0 mmol/L (20.0-26.0) 05/29/21 05:28 ABG O2 Saturation 95.7 (0-100) 06/02/21 04:13 ABG O2 Content 10.3 (0.0-44) 05/29/21 05:28 POC ABG Base Excess 3.4 06/02/21 04:13 ABG Base Excess 1.2 mmol/L (-2.0-3.0) 05/29/21 05:28 ABG Hemoglobin 11.1 (12.0-17.5) L 06/02/21 04:13 ABG Oxyhemoglobin 95.2 (94-98) 06/02/21 04:13 ABG Carboxyhemoglobin 1.6 % (0.0-5.0) 05/29/21 05:28 ABG Methemoglobin 0.3 (0.0-1.5) 06/02/21 04:13 ABG Sodium 131.9 mmol/L (136.0-145.0) L 06/02/21 04:13 ABG Potassium 3.8 mmol/L (3.40-4.50) 06/02/21 04:13 ABG Chloride 98.0 mmol/L (98-107) 06/02/21 04:13 ABG Glucose 231 mg/dL (65-95) H 06/02/21 04:13 Oxyhemoglobin 96.0 % (95.0-99.0) 05/29/21 05:28 Carboxyhemoglobin 0.2 (0.5-1.5) L 06/02/21 04:13 FiO2 30 % 05/29/21 05:28 FiO2 % 30.0 06/02/21 04:13 Sodium 135 mmol/L (137-145) L 06/04/21 05:57 Potassium 4.8 mmol/L (3.6-5.0) D 06/04/21 05:57 Chloride 96.3 mmol/L (98-107) L 06/04/21 05:57 Carbon Dioxide 26 mmol/L (22-30) 06/04/21 05:57 Anion Gap 18 mmol/L 06/04/21 05:57 BUN 51 mg/dL (7-17) H 06/04/21 05:57 Creatinine 0.8 mg/dL (0.6-1.2) D 06/04/21 05:57 Estimated GFR > 60 ml/min 06/04/21 05:57 BUN/Creatinine Ratio 64 % 06/04/21 05:57 Glucose 275 mg/dL (65-100) H 06/04/21 05:57 POC Glucose 287 mg/dL (70-105) H 06/05/21 11:24 Lactic Acid 2.30 mmol/L (0.7-2.0) H* 05/26/21 05:49 Calcium 8.6 mg/dL (8.4-10.2) 06/04/21 05:57 Ferritin 321.6 ng/mL (10.0-200.0) H 05/25/21 09:21 Total Bilirubin 0.70 mg/dL (0.1-1.2) 05/26/21 05:49 Direct Bilirubin < 0.2 mg/dL (0-0.2) 05/25/21 09:21 Indirect Bilirubin 0.2 mg/dL 05/25/21 09:21 AST 111 units/L (5-40) H 05/26/21 05:49 ALT 97 units/L (7-56) H 05/26/21 05:49 Alkaline Phosphatase 88 units/L (35-129) 05/26/21 05:49 Lactate Dehydrogenase 445 units/L (91-180) H 05/25/21 09:21 Troponin T 0.226 ng/mL (0.00-0.029) H* D 05/25/21 15:19 C-Reactive Protein 0.20 mg/dL (0.00-1.30) 05/25/21 09:21 NT-Pro-B Natriuret Pep 173.2 pg/mL (0-900) 05/25/21 09:21 Total Protein 5.4 g/dL (6.3-8.2) L 05/26/21 05:49 Albumin 3.3 g/dL (3.9-5) L 05/26/21 05:49 Albumin/Globulin Ratio 1.6 % 05/26/21 05:49 Triglycerides 124 mg/dL (2-149) 05/30/21 11:19 Cholesterol 198 mg/dL (50-199) 05/25/21 15:19 LDL Cholesterol Direct 80 mg/dL (50-130) 05/25/21 15:19 HDL Cholesterol 64 mg/dL (40-59) H 05/25/21 15:19 Cholesterol/HDL Ratio 3.09 % 05/25/21 15:19 Procalcitonin < 0.05 ng/mL (<0.15) 05/25/21 09:21 Arterial Blood Glucose 231 mg/dL (65-95) H 06/02/21 04:13 Arterial Blood Ionized Calcium 4.6 mg/dL (4.6-5.3) 06/02/21 04:13 Urine Color Straw (Yellow) 05/25/21 10:42 Urine Turbidity Clear (Clear) 05/25/21 10:42 Urine pH 6.0 (5.0-7.0) 05/25/21 10:42 Ur Specific [place] 1.007 (1.003-1.030) 05/25/21 10:42 Urine Protein 100 mg/dl mg/dL (Negative) 05/25/21 10:42 Urine Glucose (UA) >=500 mg/dL (Negative) 05/25/21 10:42 Urine Ketones Neg mg/dL (Negative) 05/25/21 10:42 Urine Blood Mod (Negative) 05/25/21 10:42 Urine Nitrite Neg (Negative) 05/25/21 10:42 Ur Reducing Substances Not Reportable 05/25/21 10:42 Urine Bilirubin Neg (Negative) 05/25/21 10:42 Urine Ictotest Not Reportable 05/25/21 10:42 Urine Urobilinogen < 2.0 mg/dL (<2.0) 05/25/21 10:42 Ur Leukocyte Esterase Neg (Negative) 05/25/21 10:42 Urine WBC (Auto) 11.0 /HPF (0.0-6.0) H 05/25/21 10:42 Urine RBC (Auto) 1.0 /HPF (0.0-6.0) 05/25/21 10:42 U Epithel Cells (Auto) < 1.0 /HPF (0-13.0) 05/25/21 10:42 Urine Bacteria (Auto) 4+ /HPF (Negative) 05/25/21 10:42 Urine Mucus Few /HPF 05/25/21 10:42 Coronavirus (PCR) Negative (Negative) 05/30/21 08:15 Blood Type O POSITIVE 05/25/21 14:07 Antibody Screen Negative 05/25/21 14:07 Tan/IV: Voiding Method External Female Catheter Active Medications - Current Medications Current Medications: Generic Name Dose Route Start Last Admin Trade Name Freq PRN Reason Stop Dose Admin Acetaminophen 650 mg 05/25/21 13:48 05/28/21 04:14 Acetaminophen 325 Mg Tab PO 650 mg Q6H PRN Administration Pain MILD(1-3)/Fever >100.5/SOTOMAYOR Lipase/Protease/Amylase 1 each 05/26/21 10:00 Lipase 10,500/Protease 25,000/Amylase 43,750 (Units) Dr Munguia FEEDTUBE PRN PRN For Clogged Feeding Tube Dextrose 50 ml 05/28/21 14:28 Dextrose 50% In Water (25gm) 50 Ml Syringe IV Q30MIN PRN Hypoglycemia Protocol Doxazosin Mesylate 2 mg 06/01/21 12:00 06/05/21 10:07 Doxazosin 1 Mg Tab PO 2 mg BID ABDIRAHMAN Administration Famotidine 20 mg 05/29/21 10:00 06/05/21 10:12 Famotidine 20 Mg Tab FEEDTUBE 20 mg BID ABDIRAHMAN Administration Glycopyrrolate 2 mg 06/01/21 09:00 06/05/21 08:41 Glycopyrrolate 2 Mg Tab PO 2 mg TID ABDIRAHMAN Administration Heparin Sodium (Porcine) 2,700 unit 05/25/21 13:41 05/30/21 17:46 Heparin 10,000 Units/10 Ml Vial 40 unit/kg (2700 unit) 2,520 unit IV Administration Q6H PRN Anti-Xa Assay < 0.1 units/ml Hydralazine HCl 10 mg 06/01/21 11:43 Hydralazine 20 Mg/1 Ml Inj IV Q4HR PRN SBP >160 Hydralazine HCl 50 mg 06/03/21 22:00 06/05/21 06:49 Hydralazine 25 Mg Tab PO 50 mg Q8HR ABDIRAHMAN Administration Hydrophilic Ointment 1 applic 05/25/21 19:04 Lip Therapy Vaseline TP Q2HR PRN Dry Lips NORepinephrine/NS 8 MG-250 ML 8 mg in 250 mls @ 3.75 mls/hr 05/25/21 09:30 Norepinephrine/Ns 8 Mg-250 Ml (Double Conc) IV TITRATE ABDIRAHMAN Protocol 2 MCG/MIN Heparin Sodium/Sodium Chloride 25,000 unit in 500 mls @ 20 mls/hr 05/25/21 15:00 06/05/21 01:14 Heparin/ 0.45% Nacl-25,000 Unit/500 Ml IV 1,050 units/hr TITRATE ABDIRAHMAN 21 mls/hr Administration Protocol 1,000 UNITS/HR Propofol 1,000 mg in 100 mls @ 1.89 mls/hr 06/03/21 05:00 06/04/21 07:39 Diprivan 10 Mg/Ml IV 0 mcg/kg/min TITR ABDIRAHMAN 0 mls/hr Titration Protocol 5 MCG/KG/MIN Insulin Glargine 20 units 06/05/21 10:00 06/05/21 10:15 Insulin Glargine 100 Units/Ml SUB-Q 20 units DAILY ABDIRAHMAN Administration Insulin Human Lispro 0 unit 05/29/21 12:00 06/05/21 01:16 Insulin Lispro 100 Unit/Ml SUB-Q 3 unit Q6HR ABDIRAHMAN Administration Protocol Labetalol HCl 300 mg 06/03/21 13:40 06/05/21 10:08 Labetalol 100 Mg Tab PO 300 mg BID ABDIRAHMAN Administration Levetiracetam 250 mg 06/01/21 22:00 06/05/21 10:07 Levetiracetam 500 Mg/5 Ml Oral Liqd FEEDTUBE 250 mg Q12HR ABDIRAHMAN Administration Lorazepam 2 mg 05/25/21 19:46 05/31/21 03:44 Lorazepam 2 Mg/Ml Vial IV 2 mg ONCE PRN Administration Seizure Metoclopramide HCl 5 mg 06/03/21 15:00 06/05/21 06:49 Metoclopramide 10 Mg/2 Ml Inj IV 5 mg Q12H ABDIRAHMAN Administration Multi-Ingred Cream/Lotion/Oil/Oint 1 applic 05/25/21 19:04 Mineral Oil/Petrolatum, White Ophth Oint 3.5 Gm OU Q4HR PRN Dry Eye(s) Polyethylene Glycol 17 gm 06/05/21 11:00 Polyethylene Glycol 3350 17 Gm Powder PO QDAY ABDIRAHMAN Senna/Docusate Sodium 1 tab 05/25/21 22:00 06/05/21 10:07 Sennosides/Docusate Sodium 8.6/50 Mg Tab FEEDTUBE 1 tab BID ABDIRAHMAN Administration Simple Syrup 15 ml 05/26/21 10:00 Simple Syrup 15 Ml FEEDTUBE PRN PRN Hypoglycemia Simple Syrup 30 ml 05/26/21 10:00 Simple Syrup 15 Ml FEEDTUBE PRN PRN Hypoglycemia Sodium Bicarbonate 325 mg 05/26/21 10:00 Sodium Bicarbonate 325 Mg Tab FEEDTUBE PRN PRN For Clogged Feeding Tube Sodium Chloride 10 ml 05/25/21 22:00 06/05/21 10:06 Sodium Chloride 0.9% 10 Ml Flush Syringe IV 10 ml BID ABDIRAHMAN Administration Sodium Chloride 10 ml 05/25/21 13:48 06/04/21 03:57 Sodium Chloride 0.9% 10 Ml Flush Syringe IV 10 ml PRN PRN Administration LINE FLUSH Valsartan 160 mg 06/01/21 12:00 06/05/21 10:09 Valsartan 160mg Tab PO 160 mg BID ABDIRAHMAN Administration Nutrition/Malnutrition Assess - Dietary Evaluation Nutrition/Malnutrition Findings: Nutrition Notes Start: 05/26/21 09:00 Freq: Status: Active Protocol: Document 06/02/21 11:57 GB (Rec: 06/02/21 12:04 GB [id number]) Nutrition Notes Initial or Follow up Reassessment Current Diagnosis COPD,Diabetes,Sepsis, Hypertension,Respiratory Failure Other Pertinent Diagnosis cardiac arrest, seizure disorder Current Diet NPO, Tube feeding Labs/Tests 06/02: Na 134, BUN 31, Creatinine 0.5, glucose 168 Pertinent Medications NaCl, off sedation 06/01 Height 5 ft 4 in Weight 63 kg [place] Body Weight (kg) 54.54 BMI 23.8 Weight change and time frame 05/25: 67.585kg 05/31: 63 kg change: -4.585kg for -6.7% loss Weight Status Appropriate Subjective/Other Information Vent continues. Daily spontaneous breathing checks for weaning. TF continues. Percent of energy/protein needs met: TF meets 100% estimated energy needs. Burn Absent Trauma Absent GI Symptoms None Food Allergy No Current % PO Other Minimum of two criteria No #1 Nutrition Diagnosis Inadequate oral intake Comments: 06/02: On vent. TF continues. Etiology ARF As Evidenced by Signs and Symptoms pt on vent and unable to consume PO Diagnosis Progress(for reassessment Continues documentation) Is patient on ventilator? Yes Is Patient Ambulatory and/or Out of Bed No REE-([facility] [place]-confined to bed) 1385.676 Kcal/Kg value to use for calculation 23 Approximate Energy Requirements Using 1449 kcal/Kg Calculation Used for Recommendations Kcal/kg Additional Notes Protein: (1-1.5g/kg @63kg) 63- 95g Fluid: 1 ml/kcal or per MD Nutrition Intervention Change Diet Order: Continue NPO Nutrition Support: Vital AF 1.2 at 50 ml/hr Flush 75 ml q4h 06/02: continues Kcal 1,440 Protein (gm) 90 Fat (gm) 65 Fluid (mL) 973 Goal #1 Meet 75% or greater of protein and energy needs via TF Follow-Up By: 06/07/21 Additional Comments Vent status <GABRIELLA VILLA - Last Filed: 06/05/21 20:46> Assessment and Plan Assessment and plan: I saw and evaluated the patient. I agree with the findings and the plan of care as documented in the Nurse Practitioner's~note, with the following corrections and additions. Hospitalist Physical - Constitutional Vitals: Temp Pulse Resp BP Pulse Ox 98.3 F 79 16 154/64 100 06/05/21 20:00 06/05/21 19:49 06/05/21 18:15 06/05/21 19:49 06/05/21 19:49 HEART Score - HEART Score Troponin: Troponin T 0.226 ng/mL (0.00-0.029) H* D 05/25/21 15:19 Results - Labs CBC & Chem 7: 06/05/21 12:20 06/05/21 12:20 Labs: Laboratory Last Values WBC 16.2 K/mm3 (4.5-11.0) H 06/05/21 12:20 RBC 2.56 M/mm3 (3.65-5.03) L 06/05/21 12:20 Hgb 8.8 gm/dl (10.1-14.3) L 06/05/21 12:20 Hct 25.2 % (30.3-42.9) L 06/05/21 12:20 MCV 98 fl (79-97) H 06/05/21 12:20 MCH 35 pg (28-32) H 06/05/21 12:20 MCHC 35 % (30-34) H 06/05/21 12:20 RDW 15.3 % (13.2-15.2) H 06/05/21 12:20 Plt Count 280 K/mm3 (140-440) 06/05/21 12:20 Lymph % (Auto) 14.3 % (13.4-35.0) 05/28/21 04:00 [place] % (Auto) 6.9 % (0.0-7.3) 05/28/21 04:00 Eos % (Auto) 0.1 % (0.0-4.3) 05/28/21 04:00 Baso % (Auto) 0.5 % (0.0-1.8) 05/28/21 04:00 Lymph # (Auto) 1.9 K/mm3 (1.2-5.4) 05/28/21 04:00 [place] # (Auto) 0.9 K/mm3 (0.0-0.8) H 05/28/21 04:00 Eos # (Auto) 0.0 K/mm3 (0.0-0.4) 05/28/21 04:00 Baso # (Auto) 0.1 K/mm3 (0.0-0.1) 05/28/21 04:00 Add Manual Diff Complete 06/04/21 05:57 Total Counted 100 06/04/21 05:57 Seg Neutrophils % 78.2 % (40.0-70.0) H 05/28/21 04:00 Seg Neuts % (Manual) 83.0 % (40.0-70.0) H 06/04/21 05:57 Band Neutrophils % 4.0 % 06/04/21 05:57 Lymphocytes % (Manual) 4.0 % (13.4-35.0) L 06/04/21 05:57 Monocytes % (Manual) 6.0 % (0.0-7.3) 06/04/21 05:57 Eosinophils % (Manual) 2.0 % (0.0-4.3) 06/04/21 05:57 Metamyelocytes % 1.0 % 05/25/21 09:21 Myelocytes % 1.0 % 06/04/21 05:57 Nucleated RBC % Not Reportable 06/04/21 05:57 Seg Neutrophils # 10.6 K/mm3 (1.8-7.7) H 05/28/21 04:00 Seg Neutrophils # Man 14.8 K/mm3 (1.8-7.7) H 06/04/21 05:57 Band Neutrophils # 0.7 K/mm3 06/04/21 05:57 Lymphocytes # (Manual) 0.7 K/mm3 (1.2-5.4) L 06/04/21 05:57 Abs React Lymphs (Man) 0.0 K/mm3 06/04/21 05:57 Monocytes # (Manual) 1.1 K/mm3 (0.0-0.8) H 06/04/21 05:57 Eosinophils # (Manual) 0.4 K/mm3 (0.0-0.4) 06/04/21 05:57 Basophils # (Manual) 0.0 K/mm3 (0.0-0.1) 06/04/21 05:57 Metamyelocytes # 0.0 K/mm3 06/04/21 05:57 Myelocytes # 0.2 K/mm3 06/04/21 05:57 Promyelocytes # 0.0 K/mm3 06/04/21 05:57 Blast Cells # 0.0 K/mm3 06/04/21 05:57 WBC Morphology Not Reportable 06/04/21 05:57 Hypersegmented Neuts Not Reportable 06/04/21 05:57 Hyposegmented Neuts Not Reportable 06/04/21 05:57 Hypogranular Neuts Not Reportable 06/04/21 05:57 Smudge Cells Not Reportable 06/04/21 05:57 Toxic Granulation Not Reportable 06/04/21 05:57 Toxic Vacuolation Not Reportable 06/04/21 05:57 Dohle Bodies Not Reportable 06/04/21 05:57 Pelger-Huet Anomaly Not Reportable 06/04/21 05:57 Peter Rods Not Reportable 06/04/21 05:57 Platelet Estimate Consistent w auto 06/04/21 05:57 Clumped Platelets Not Reportable 06/04/21 05:57 Plt Clumps, EDTA Not Reportable 06/04/21 05:57 Large Platelets Not Reportable 06/04/21 05:57 Giant Platelets Not Reportable 06/04/21 05:57 Platelet Satelliting Not Reportable 06/04/21 05:57 Plt Morphology Comment Not Reportable 06/04/21 05:57 RBC Morphology Normal 06/04/21 05:57 Dimorphic RBCs Not Reportable 06/04/21 05:57 Polychromasia Not Reportable 06/04/21 05:57 Hypochromasia Not Reportable 06/04/21 05:57 Poikilocytosis Not Reportable 06/04/21 05:57 Anisocytosis Not Reportable 06/04/21 05:57 Microcytosis Not Reportable 06/04/21 05:57 Macrocytosis Not Reportable 06/04/21 05:57 Spherocytes Not Reportable 06/04/21 05:57 Pappenheimer Bodies Not Reportable 06/04/21 05:57 Sickle Cells Not Reportable 06/04/21 05:57 Target Cells Not Reportable 06/04/21 05:57 Tear Drop Cells Not Reportable 06/04/21 05:57 Ovalocytes Not Reportable 06/04/21 05:57 Helmet Cells Not Reportable 06/04/21 05:57 Toribio-Mccracken Bodies Not Reportable 06/04/21 05:57 [place] Rings Not Reportable 06/04/21 05:57 [place] Cells Not Reportable 06/04/21 05:57 Bite Cells Not Reportable 06/04/21 05:57 Crenated Cell Not Reportable 06/04/21 05:57 Elliptocytes Not Reportable 06/04/21 05:57 Acanthocytes (Spur) Not Reportable 06/04/21 05:57 Rouleaux Not Reportable 06/04/21 05:57 Hemoglobin C Crystals Not Reportable 06/04/21 05:57 Schistocytes Not Reportable 06/04/21 05:57 Malaria parasites Not Reportable 06/04/21 05:57 Shravan Bodies Not Reportable 06/04/21 05:57 Hem Pathologist Commnt No 06/04/21 05:57 PT 15.0 Sec. (12.2-14.9) H 05/25/21 09:21 INR 1.13 (0.87-1.13) 05/25/21 09:21 APTT 72.2 Sec. (24.2-36.6) H* 06/05/21 12:20 D-Dimer > 52142 ng/mlDDU (0-234) H 05/25/21 09:21 Heparin Anti-Xa Level 0.41 U.I./ml (0.3-0.7) 06/04/21 23:21 ABG pH 7.481 (7.320-7.450) H 06/02/21 04:13 POC ABG pCO2 36.9 mmHg (32.0-48.0) 06/02/21 04:13 ABG pCO2 30.3 mm Hg 05/29/21 05:28 POC ABG pO2 80.0 mmHg (83-108) L 06/02/21 04:13 ABG pO2 96.2 mm Hg (80.0-90.0) H 05/29/21 05:28 POC ABG HCO3 26.9 06/02/21 04:13 ABG HCO3 24.0 mmol/L (20.0-26.0) 05/29/21 05:28 ABG O2 Saturation 95.7 (0-100) 06/02/21 04:13 ABG O2 Content 10.3 (0.0-44) 05/29/21 05:28 POC ABG Base Excess 3.4 06/02/21 04:13 ABG Base Excess 1.2 mmol/L (-2.0-3.0) 05/29/21 05:28 ABG Hemoglobin 11.1 (12.0-17.5) L 06/02/21 04:13 ABG Oxyhemoglobin 95.2 (94-98) 06/02/21 04:13 ABG Carboxyhemoglobin 1.6 % (0.0-5.0) 05/29/21 05:28 ABG Methemoglobin 0.3 (0.0-1.5) 06/02/21 04:13 ABG Sodium 131.9 mmol/L (136.0-145.0) L 06/02/21 04:13 ABG Potassium 3.8 mmol/L (3.40-4.50) 06/02/21 04:13 ABG Chloride 98.0 mmol/L (98-107) 06/02/21 04:13 ABG Glucose 231 mg/dL (65-95) H 06/02/21 04:13 Oxyhemoglobin 96.0 % (95.0-99.0) 05/29/21 05:28 Carboxyhemoglobin 0.2 (0.5-1.5) L 06/02/21 04:13 FiO2 30 % 05/29/21 05:28 FiO2 % 30.0 06/02/21 04:13 Sodium 133 mmol/L (137-145) L 06/05/21 12:20 Potassium 4.9 mmol/L (3.6-5.0) 06/05/21 12:20 Chloride 95.3 mmol/L (98-107) L 06/05/21 12:20 Carbon Dioxide 27 mmol/L (22-30) 06/05/21 12:20 Anion Gap 16 mmol/L 06/05/21 12:20 BUN 57 mg/dL (7-17) H 06/05/21 12:20 Creatinine 0.7 mg/dL (0.6-1.2) 06/05/21 12:20 Estimated GFR > 60 ml/min 06/05/21 12:20 BUN/Creatinine Ratio 81 % 06/05/21 12:20 Glucose 313 mg/dL (65-100) H 06/05/21 12:20 POC Glucose 275 mg/dL (70-105) H 06/05/21 17:50 Lactic Acid 2.30 mmol/L (0.7-2.0) H* 05/26/21 05:49 Calcium 8.5 mg/dL (8.4-10.2) 06/05/21 12:20 Ferritin 321.6 ng/mL (10.0-200.0) H 05/25/21 09:21 Total Bilirubin 0.20 mg/dL (0.1-1.2) 06/05/21 12:20 Direct Bilirubin < 0.2 mg/dL (0-0.2) 05/25/21 09:21 Indirect Bilirubin 0.2 mg/dL 05/25/21 09:21 AST 90 units/L (5-40) H 06/05/21 12:20 ALT 79 units/L (7-56) H 06/05/21 12:20 Alkaline Phosphatase 262 units/L (35-129) H 06/05/21 12:20 Lactate Dehydrogenase 445 units/L (91-180) H 05/25/21 09:21 Troponin T 0.226 ng/mL (0.00-0.029) H* D 05/25/21 15:19 C-Reactive Protein 0.20 mg/dL (0.00-1.30) 05/25/21 09:21 NT-Pro-B Natriuret Pep 173.2 pg/mL (0-900) 05/25/21 09:21 Total Protein 6.6 g/dL (6.3-8.2) 06/05/21 12:20 Albumin 2.7 g/dL (3.9-5) L 06/05/21 12:20 Albumin/Globulin Ratio 0.7 % 06/05/21 12:20 Triglycerides 124 mg/dL (2-149) 05/30/21 11:19 Cholesterol 198 mg/dL (50-199) 05/25/21 15:19 LDL Cholesterol Direct 80 mg/dL (50-130) 05/25/21 15:19 HDL Cholesterol 64 mg/dL (40-59) H 05/25/21 15:19 Cholesterol/HDL Ratio 3.09 % 05/25/21 15:19 Procalcitonin < 0.05 ng/mL (<0.15) 05/25/21 09:21 Arterial Blood Glucose 231 mg/dL (65-95) H 06/02/21 04:13 Arterial Blood Ionized Calcium 4.6 mg/dL (4.6-5.3) 06/02/21 04:13 Urine Color Straw (Yellow) 05/25/21 10:42 Urine Turbidity Clear (Clear) 05/25/21 10:42 Urine pH 6.0 (5.0-7.0) 05/25/21 10:42 Ur Specific [place] 1.007 (1.003-1.030) 05/25/21 10:42 Urine Protein 100 mg/dl mg/dL (Negative) 05/25/21 10:42 Urine Glucose (UA) >=500 mg/dL (Negative) 05/25/21 10:42 Urine Ketones Neg mg/dL (Negative) 05/25/21 10:42 Urine Blood Mod (Negative) 05/25/21 10:42 Urine Nitrite Neg (Negative) 05/25/21 10:42 Ur Reducing Substances Not Reportable 05/25/21 10:42 Urine Bilirubin Neg (Negative) 05/25/21 10:42 Urine Ictotest Not Reportable 05/25/21 10:42 Urine Urobilinogen < 2.0 mg/dL (<2.0) 05/25/21 10:42 Ur Leukocyte Esterase Neg (Negative) 05/25/21 10:42 Urine WBC (Auto) 11.0 /HPF (0.0-6.0) H 05/25/21 10:42 Urine RBC (Auto) 1.0 /HPF (0.0-6.0) 05/25/21 10:42 U Epithel Cells (Auto) < 1.0 /HPF (0-13.0) 05/25/21 10:42 Urine Bacteria (Auto) 4+ /HPF (Negative) 05/25/21 10:42 Urine Mucus Few /HPF 05/25/21 10:42 Coronavirus (PCR) Negative (Negative) 05/30/21 08:15 Blood Type O POSITIVE 05/25/21 14:07 Antibody Screen Negative 05/25/21 14:07 Tan/IV: Voiding Method External Female Catheter Active Medications - Current Medications Current Medications: Generic Name Dose Route Start Last Admin Trade Name Freq PRN Reason Stop Dose Admin Acetaminophen 650 mg 05/25/21 13:48 05/28/21 04:14 Acetaminophen 325 Mg Tab PO 650 mg Q6H PRN Administration Pain MILD(1-3)/Fever >100.5/SOTOMAYOR Lipase/Protease/Amylase 1 each 05/26/21 10:00 Lipase 10,500/Protease 25,000/Amylase 43,750 (Units) Dr Munguia FEEDTUBE PRN PRN For Clogged Feeding Tube Dextrose 50 ml 05/28/21 14:28 Dextrose 50% In Water (25gm) 50 Ml Syringe IV Q30MIN PRN Hypoglycemia Protocol Doxazosin Mesylate 2 mg 06/01/21 12:00 06/05/21 10:07 Doxazosin 1 Mg Tab PO 2 mg BID ABDIRAHMAN Administration Famotidine 20 mg 05/29/21 10:00 06/05/21 10:12 Famotidine 20 Mg Tab FEEDTUBE 20 mg BID ABDIRAHMAN Administration Glycopyrrolate 2 mg 06/01/21 09:00 06/05/21 20:32 Glycopyrrolate 2 Mg Tab PO 2 mg TID ABDIRAHMAN Administration Heparin Sodium (Porcine) 2,700 unit 05/25/21 13:41 05/30/21 17:46 Heparin 10,000 Units/10 Ml Vial 40 unit/kg (2700 unit) 2,520 unit IV Administration Q6H PRN Anti-Xa Assay < 0.1 units/ml Hydralazine HCl 10 mg 06/01/21 11:43 Hydralazine 20 Mg/1 Ml Inj IV Q4HR PRN SBP >160 Hydralazine HCl 50 mg 06/03/21 22:00 06/05/21 13:20 Hydralazine 25 Mg Tab PO 50 mg Q8HR ABDIRAHMAN Administration Hydrophilic Ointment 1 applic 05/25/21 19:04 Lip Therapy Vaseline TP Q2HR PRN Dry Lips NORepinephrine/NS 8 MG-250 ML 8 mg in 250 mls @ 3.75 mls/hr 05/25/21 09:30 Norepinephrine/Ns 8 Mg-250 Ml (Double Conc) IV TITRATE ABDIRAHMAN Protocol 2 MCG/MIN Heparin Sodium/Sodium Chloride 25,000 unit in 500 mls @ 20 mls/hr 05/25/21 15:00 06/05/21 01:14 Heparin/ 0.45% Nacl-25,000 Unit/500 Ml IV 1,050 units/hr TITRATE ABDIRAHMAN 21 mls/hr Administration Protocol 1,000 UNITS/HR Propofol 1,000 mg in 100 mls @ 1.89 mls/hr 06/03/21 05:00 06/04/21 07:39 Diprivan 10 Mg/Ml IV 0 mcg/kg/min TITR ABDIRAHMAN 0 mls/hr Titration Protocol 5 MCG/KG/MIN Insulin Glargine 20 units 06/05/21 10:00 06/05/21 10:15 Insulin Glargine 100 Units/Ml SUB-Q 20 units DAILY ABDIRAHMAN Administration Insulin Human Lispro 0 unit 05/29/21 12:00 06/05/21 18:07 Insulin Lispro 100 Unit/Ml SUB-Q 6 unit Q6HR ABDIRAHMAN Administration Protocol Labetalol HCl 300 mg 06/03/21 13:40 06/05/21 10:08 Labetalol 100 Mg Tab PO 300 mg BID ABDIRAHMAN Administration Levetiracetam 250 mg 06/01/21 22:00 06/05/21 10:07 Levetiracetam 500 Mg/5 Ml Oral Liqd FEEDTUBE 250 mg Q12HR ABDIRAHMAN Administration Lorazepam 2 mg 05/25/21 19:46 05/31/21 03:44 Lorazepam 2 Mg/Ml Vial IV 2 mg ONCE PRN Administration Seizure Metoclopramide HCl 5 mg 06/03/21 15:00 06/05/21 15:28 Metoclopramide 10 Mg/2 Ml Inj IV 5 mg Q12H ABDIRAHMAN Administration Multi-Ingred Cream/Lotion/Oil/Oint 1 applic 05/25/21 19:04 Mineral Oil/Petrolatum, White Ophth Oint 3.5 Gm OU Q4HR PRN Dry Eye(s) Polyethylene Glycol 17 gm 06/05/21 11:00 06/05/21 13:20 Polyethylene Glycol 3350 17 Gm Powder PO 17 gm QDAY ABDIRAHMAN Administration Senna/Docusate Sodium 1 tab 05/25/21 22:00 06/05/21 10:07 Sennosides/Docusate Sodium 8.6/50 Mg Tab FEEDTUBE 1 tab BID ABDIRAHMAN Administration Simple Syrup 15 ml 05/26/21 10:00 Simple Syrup 15 Ml FEEDTUBE PRN PRN Hypoglycemia Simple Syrup 30 ml 05/26/21 10:00 Simple Syrup 15 Ml FEEDTUBE PRN PRN Hypoglycemia Sodium Bicarbonate 325 mg 05/26/21 10:00 Sodium Bicarbonate 325 Mg Tab FEEDTUBE PRN PRN For Clogged Feeding Tube Sodium Chloride 10 ml 05/25/21 22:00 06/05/21 13:12 Sodium Chloride 0.9% 10 Ml Flush Syringe IV 10 ml BID ABDIRAHMAN Administration Sodium Chloride 10 ml 05/25/21 13:48 06/04/21 03:57 Sodium Chloride 0.9% 10 Ml Flush Syringe IV 10 ml PRN PRN Administration LINE FLUSH Valsartan 160 mg 06/01/21 12:00 06/05/21 10:09 Valsartan 160mg Tab PO 160 mg BID ABDIRAHMAN Administration Nutrition/Malnutrition Assess - Dietary Evaluation Nutrition/Malnutrition Findings: Nutrition Notes Start: 05/26/21 09:00 Freq: Status: Active Protocol: Document 06/02/21 11:57 GB (Rec: 06/02/21 12:04 GB [id number]) Nutrition Notes Initial or Follow up Reassessment Current Diagnosis COPD,Diabetes,Sepsis, Hypertension,Respiratory Failure Other Pertinent Diagnosis cardiac arrest, seizure disorder Current Diet NPO, Tube feeding Labs/Tests 06/02: Na 134, BUN 31, Creatinine 0.5, glucose 168 Pertinent Medications NaCl, off sedation 06/01 Height 5 ft 4 in Weight 63 kg [place] Body Weight (kg) 54.54 BMI 23.8 Weight change and time frame 05/25: 67.585kg 05/31: 63 kg change: -4.585kg for -6.7% loss Weight Status Appropriate Subjective/Other Information Vent continues. Daily spontaneous breathing checks for weaning. TF continues. Percent of energy/protein needs met: TF meets 100% estimated energy needs. Burn Absent Trauma Absent GI Symptoms None Food Allergy No Current % PO Other Minimum of two criteria No #1 Nutrition Diagnosis Inadequate oral intake Comments: 06/02: On vent. TF continues. Etiology ARF As Evidenced by Signs and Symptoms pt on vent and unable to consume PO Diagnosis Progress(for reassessment Continues documentation) Is patient on ventilator? Yes Is Patient Ambulatory and/or Out of Bed No REE-([facility]-confined to bed) 1385.676 Kcal/Kg value to use for calculation 23 Approximate Energy Requirements Using 1449 kcal/Kg Calculation Used for Recommendations Kcal/kg Additional Notes Protein: (1-1.5g/kg @63kg) 63- 95g Fluid: 1 ml/kcal or per MD Nutrition Intervention Change Diet Order: Continue NPO Nutrition Support: Vital AF 1.2 at 50 ml/hr Flush 75 ml q4h 06/02: continues Kcal 1,440 Protein (gm) 90 Fat (gm) 65 Fluid (mL) 973 Goal #1 Meet 75% or greater of protein and energy needs via TF Follow-Up By: 06/07/21 Additional Comments Vent status
[2021-06-05 12:37] LABS: Hematocrit 25.2 % (30.3-42.9); Hemoglobin 8.8 gm/dl (10.1-14.3); Mean Corpuscular HGB Conc 35 % (30-34); Mean Corpuscular Volume 98 fl (79-97); Platelet Count 280 K/mm3 (140-440); Red Blood Count 2.56 M/mm3 (3.65-5.03); Red Cell Distribution Width 15.3 % (13.2-15.2)
[2021-06-05 13:05] LABS: Alanine Aminotransferase 79 units/L (7-56); Albumin 2.7 g/dL (3.9-5); Blood Urea Nitrogen 57 mg/dL (7-17); Calcium 8.5 mg/dL (8.4-10.2); Hemolysis Index 2
[2021-06-05 13:08] LABS: BUN/Creatinine Ratio 81
[2021-06-05] MEDS: POLYETHYLENE GLYCOL 3350 17 GM POWDER PO SCH (13:20)
[2021-06-05] MEDS ORDERED: INSULIN LISPRO 100 UNIT/ML SUB-Q SCH (14:00)
[2021-06-06] MEDS: HEPARIN/ 0.45% NACL DRIP 25,000 UNIT/500 ML BAG IV SCH (00:01)
[2021-06-06] MEDS: INSULIN LISPRO 100 UNIT/ML SUB-Q SCH ×4 (00:06→17:59)
[2021-06-06] MEDS: METOCLOPRAMIDE 10 MG/2 ML INJ IV SCH (03:01)
[2021-06-06 05:22] LABS: Hematocrit 27.2 % (30.3-42.9); Hemoglobin 9.4 gm/dl (10.1-14.3); Mean Corpuscular HGB Conc 34 % (30-34); Mean Corpuscular Volume 98 fl (79-97); Platelet Count 323 K/mm3 (140-440); Red Blood Count 2.77 M/mm3 (3.65-5.03); Red Cell Distribution Width 15.4 % (13.2-15.2)
[2021-06-06 05:41] LABS: Alanine Aminotransferase 136 units/L (7-56); Albumin 3.1 g/dL (3.9-5); BUN/Creatinine Ratio 71; Blood Urea Nitrogen 57 mg/dL (7-17); Calcium 8.6 mg/dL (8.4-10.2); Hemolysis Index 18
[2021-06-06] MEDS: POLYETHYLENE GLYCOL 3350 17 GM POWDER PO SCH (09:01)
[2021-06-06] MEDS: INSULIN GLARGINE 100 UNITS/ML SUB-Q SCH (09:01)
[2021-06-06] MEDS: levETIRAcetam 500 MG/5 ML ORAL LIQD FEEDTUBE SCH ×2 (09:01→22:32)
[2021-06-06] MEDS: SENNOSIDES/DOCUSATE SODIUM 8.6/50 MG TAB FEEDTUBE SCH ×2 (09:02→22:32)
[2021-06-06] MEDS: DOXAZOSIN 1 MG TAB PO SCH ×2 (09:03→22:32)
[2021-06-06] MEDS: FAMOTIDINE 20 MG TAB FEEDTUBE SCH ×2 (09:03→22:32)
[2021-06-06] MEDS: VALSARTAN 160MG TAB PO SCH ×2 (09:04→22:32)
[2021-06-06] MEDS: GLYCOPYRROLATE 2 MG TAB PO SCH ×3 (09:05→22:34)
[2021-06-06] MEDS ORDERED: SODIUM POLYSTYRENE 15 GM/60 ML ORAL LIQD PO ONE (09:15)
[2021-06-06] MEDS ORDERED: SODIUM POLYSTYRENE 15 GM/60 ML ORAL LIQD ONE (11:20)
--- NOTE | 2021-06-06 11:21 | Progress Note ---
<TOBIAS QUIROS - Last Filed: 06/06/21 15:40> Assessment and Plan Assessment and plan: 65-year-old female with PmHx of nonepileptic spells, PTSD, closed head injury, hypertension, diabetes, CAD, who came in s/p cardiac arrest Hospital Course to Date: 06/05/21- Patient remains ETT and on vent support. Off sedation with some improvement in neuro status, but is not following commands. Patient is tolerating SBT trial this am, still on the heparin gtt. AM labs is pending. Patient is still hyperglycemic, increased Qhs lantus. Continue supportive care. 06/06/21- Patient is intubated and on the vent. No longer on sedation, awake but unresponsive, tolerating SBT. Hyperglycemia this am, X1 dose of kayaxalate orderd. Persistent hyperglycemia, insulin adjusted. 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 - Per Neuro 05/29 EEG no sign of seizures - Patient is off sedation, open eyes spontaneously, pupils reactive, with +gag and cough. - Not following commands, no movement to stimuli - Continue Keppra and PRN ativan for seizure - Continue Supportive care #CV: s/p Cardiac Arrest #AFIB with RVR- resolved #Hypertension - Remains SR on the monitor - Normotensive - Continue antihypertensives: Labetalol, Hydralazine, valsartan, & Doxazosin - PRN hydralazine for SBP> 160 - Continue AC- Heparin gtt per protocol - Cardio is following #Resp.: Acute Hypoxemic Respitaroy Failure s/p cardiac Arrest #Bilateral Lower Lobe Infiltrates- improved - 05/25 ETT- Vent setting: SBT: 30%, 04/20 - 05/29 CXR- improved lung aeration - Patient is tolerating breathing trial, continue daily SBT - ABG per CCM - F/U CXR in the am - Continue supplemental O2 for SPO2 goal>90% - D/w CCM rec Trach and PEG-Family at bedside CCM discussed plan with family - CCM spoke with Patient's son- family not ready for trach at this time - Case management for LTACH placement #GI: Abdominal distention possibly due to Constipation #Vomitting- resolved - last documented BM 06/01 - 06/03 KUB showed no sign. abnormality - Bowel Regimen- senokot, Miralax added - TF at goal - Continue PPI- gustavo regholli #: Hyperkalemia - 06/06 K 5.7; X1 dose of kayexalate via NGT - Purewick in placed - Net -681ml in last 24hrs - Continue strict I&Os - Continue to monitor renal function, am labs ordered #ID: Leukocytosis #Sepsis- resolved #Bilateral Lower Lobe Infiltrates- improved - 05/25 Bcultx2-neg; 05/25 Tracheal aspirate-neg; 05/25 Urine cult- neg - 05/29 CXR- improved lung aeration - WBCs trending down; 06/06 Wbcs 15.7 - Afebrile TMAX 98.4, not on pressors - Continue to monitor- AM labs ordered #Endo: Hyperglycemia; H/o DM - Remains hyperglycemic - On high dose SSI Q6hrs and Lantus - added 5units humilin R- Will reassess in the am #DVT prophylaxis - SCDs to bilateral lower extremities while in bed - Continue AC- heparin gtt The high probability of a clinically significant, sudden or life threatening deterioration of the [neuro, Pulmo, Endo] system(s) required my full and direct attention, intervention and personal management. The aggregate critical care time was [60] minutes. This time is in addition to time spent performing reported procedures but includes the following: [x] Data Review and interpretation [x] Patient assessment and monitoring of vital signs [x] Documentation [x] Medication orders and management I saw and evaluated the patient. Discussed with the nurse practitioner and agree with their findings and plan as documented in this note. Disposition Plan: ICU Total Time Spent with Patient (Minutes): 60 History Interval history: Patient seen and examined at the bedside. Remains on vent, tolerating SBT trial. Awake and opening eyes spontaneously, however she is not following any commands, no movement to pain stimuli, +gag and cough. Per RN no significant events overnight Hospitalist Physical - Constitutional Vitals: Temp Pulse Resp BP Pulse Ox 97.7 F 80 18 139/47 98 06/06/21 07:00 06/06/21 09:04 06/06/21 08:00 06/06/21 09:04 06/06/21 08:00 General appearance: Present: no acute distress - EENT Eyes: Present: PERRL - Respiratory Respiratory effort: normal Respiratory: bilateral: diminished - Cardiovascular Rhythm: regular Heart Sounds: Present: S1 & S2 - Extremities Extremities: pulses intact, pulses symmetrical Extremity abnormal: edema - Peripheral Assessment Generalized Edema Type: Non-pitting Edema Degree: 1+ Capillary Refill: < 3 seconds Skin Temperature: Warm Peripheral Pulses: within normal limits - Abdominal General gastrointestinal: soft, non-tender, non-distended, normal bowel sounds - Integumentary Integumentary: Present: warm, dry - Psychiatric Psychiatric: other (BJ) - Neurologic Neurologic: other (Pupils are eacrive, Open eyes spontaneously, + gag and cough, does not follow commands) - Allied Health Allied health notes reviewed: nursing HEART Score - HEART Score Troponin: Troponin T 0.226 ng/mL (0.00-0.029) H* D 05/25/21 15:19 Results - Labs CBC & Chem 7: 06/06/21 04:57 06/06/21 04:57 Labs: Laboratory Last Values WBC 15.7 K/mm3 (4.5-11.0) H 06/06/21 04:57 RBC 2.77 M/mm3 (3.65-5.03) L 06/06/21 04:57 Hgb 9.4 gm/dl (10.1-14.3) L 06/06/21 04:57 Hct 27.2 % (30.3-42.9) L 06/06/21 04:57 MCV 98 fl (79-97) H 06/06/21 04:57 MCH 34 pg (28-32) H 06/06/21 04:57 MCHC 34 % (30-34) 06/06/21 04:57 RDW 15.4 % (13.2-15.2) H 06/06/21 04:57 Plt Count 323 K/mm3 (140-440) 06/06/21 04:57 Lymph % (Auto) 14.3 % (13.4-35.0) 05/28/21 04:00 [place] % (Auto) 6.9 % (0.0-7.3) 05/28/21 04:00 Eos % (Auto) 0.1 % (0.0-4.3) 05/28/21 04:00 Baso % (Auto) 0.5 % (0.0-1.8) 05/28/21 04:00 Lymph # (Auto) 1.9 K/mm3 (1.2-5.4) 05/28/21 04:00 [place] # (Auto) 0.9 K/mm3 (0.0-0.8) H 05/28/21 04:00 Eos # (Auto) 0.0 K/mm3 (0.0-0.4) 05/28/21 04:00 Baso # (Auto) 0.1 K/mm3 (0.0-0.1) 05/28/21 04:00 Add Manual Diff Complete 06/04/21 05:57 Total Counted 100 06/04/21 05:57 Seg Neutrophils % 78.2 % (40.0-70.0) H 05/28/21 04:00 Seg Neuts % (Manual) 83.0 % (40.0-70.0) H 06/04/21 05:57 Band Neutrophils % 4.0 % 06/04/21 05:57 Lymphocytes % (Manual) 4.0 % (13.4-35.0) L 06/04/21 05:57 Monocytes % (Manual) 6.0 % (0.0-7.3) 06/04/21 05:57 Eosinophils % (Manual) 2.0 % (0.0-4.3) 06/04/21 05:57 Metamyelocytes % 1.0 % 05/25/21 09:21 Myelocytes % 1.0 % 06/04/21 05:57 Nucleated RBC % Not Reportable 06/04/21 05:57 Seg Neutrophils # 10.6 K/mm3 (1.8-7.7) H 05/28/21 04:00 Seg Neutrophils # Man 14.8 K/mm3 (1.8-7.7) H 06/04/21 05:57 Band Neutrophils # 0.7 K/mm3 06/04/21 05:57 Lymphocytes # (Manual) 0.7 K/mm3 (1.2-5.4) L 06/04/21 05:57 Abs React Lymphs (Man) 0.0 K/mm3 06/04/21 05:57 Monocytes # (Manual) 1.1 K/mm3 (0.0-0.8) H 06/04/21 05:57 Eosinophils # (Manual) 0.4 K/mm3 (0.0-0.4) 06/04/21 05:57 Basophils # (Manual) 0.0 K/mm3 (0.0-0.1) 06/04/21 05:57 Metamyelocytes # 0.0 K/mm3 06/04/21 05:57 Myelocytes # 0.2 K/mm3 06/04/21 05:57 Promyelocytes # 0.0 K/mm3 06/04/21 05:57 Blast Cells # 0.0 K/mm3 06/04/21 05:57 WBC Morphology Not Reportable 06/04/21 05:57 Hypersegmented Neuts Not Reportable 06/04/21 05:57 Hyposegmented Neuts Not Reportable 06/04/21 05:57 Hypogranular Neuts Not Reportable 06/04/21 05:57 Smudge Cells Not Reportable 06/04/21 05:57 Toxic Granulation Not Reportable 06/04/21 05:57 Toxic Vacuolation Not Reportable 06/04/21 05:57 Dohle Bodies Not Reportable 06/04/21 05:57 Pelger-Huet Anomaly Not Reportable 06/04/21 05:57 Peter Rods Not Reportable 06/04/21 05:57 Platelet Estimate Consistent w auto 06/04/21 05:57 Clumped Platelets Not Reportable 06/04/21 05:57 Plt Clumps, EDTA Not Reportable 06/04/21 05:57 Large Platelets Not Reportable 06/04/21 05:57 Giant Platelets Not Reportable 06/04/21 05:57 Platelet Satelliting Not Reportable 06/04/21 05:57 Plt Morphology Comment Not Reportable 06/04/21 05:57 RBC Morphology Normal 06/04/21 05:57 Dimorphic RBCs Not Reportable 06/04/21 05:57 Polychromasia Not Reportable 06/04/21 05:57 Hypochromasia Not Reportable 06/04/21 05:57 Poikilocytosis Not Reportable 06/04/21 05:57 Anisocytosis Not Reportable 06/04/21 05:57 Microcytosis Not Reportable 06/04/21 05:57 Macrocytosis Not Reportable 06/04/21 05:57 Spherocytes Not Reportable 06/04/21 05:57 Pappenheimer Bodies Not Reportable 06/04/21 05:57 Sickle Cells Not Reportable 06/04/21 05:57 Target Cells Not Reportable 06/04/21 05:57 Tear Drop Cells Not Reportable 06/04/21 05:57 Ovalocytes Not Reportable 06/04/21 05:57 Helmet Cells Not Reportable 06/04/21 05:57 [place] Bodies Not Reportable 06/04/21 05:57 [place] Rings Not Reportable 06/04/21 05:57 Lin Cells Not Reportable 06/04/21 05:57 Bite Cells Not Reportable 06/04/21 05:57 Crenated Cell Not Reportable 06/04/21 05:57 Elliptocytes Not Reportable 06/04/21 05:57 Acanthocytes (Spur) Not Reportable 06/04/21 05:57 Rouleaux Not Reportable 06/04/21 05:57 Hemoglobin C Crystals Not Reportable 06/04/21 05:57 Schistocytes Not Reportable 06/04/21 05:57 Malaria parasites Not Reportable 06/04/21 05:57 Shravan Bodies Not Reportable 06/04/21 05:57 Hem Pathologist Commnt No 06/04/21 05:57 PT 15.0 Sec. (12.2-14.9) H 05/25/21 09:21 INR 1.13 (0.87-1.13) 05/25/21 09:21 APTT 72.2 Sec. (24.2-36.6) H* 06/05/21 12:20 D-Dimer > 56716 ng/mlDDU (0-234) H 05/25/21 09:21 Heparin Anti-Xa Level 0.46 U.I./ml (0.3-0.7) 06/06/21 04:57 ABG pH 7.481 (7.320-7.450) H 06/02/21 04:13 POC ABG pCO2 36.9 mmHg (32.0-48.0) 06/02/21 04:13 ABG pCO2 30.3 mm Hg 05/29/21 05:28 POC ABG pO2 80.0 mmHg (83-108) L 06/02/21 04:13 ABG pO2 96.2 mm Hg (80.0-90.0) H 05/29/21 05:28 POC ABG HCO3 26.9 06/02/21 04:13 ABG HCO3 24.0 mmol/L (20.0-26.0) 05/29/21 05:28 ABG O2 Saturation 95.7 (0-100) 06/02/21 04:13 ABG O2 Content 10.3 (0.0-44) 05/29/21 05:28 POC ABG Base Excess 3.4 06/02/21 04:13 ABG Base Excess 1.2 mmol/L (-2.0-3.0) 05/29/21 05:28 ABG Hemoglobin 11.1 (12.0-17.5) L 06/02/21 04:13 ABG Oxyhemoglobin 95.2 (94-98) 06/02/21 04:13 ABG Carboxyhemoglobin 1.6 % (0.0-5.0) 05/29/21 05:28 ABG Methemoglobin 0.3 (0.0-1.5) 06/02/21 04:13 ABG Sodium 131.9 mmol/L (136.0-145.0) L 06/02/21 04:13 ABG Potassium 3.8 mmol/L (3.40-4.50) 06/02/21 04:13 ABG Chloride 98.0 mmol/L (98-107) 06/02/21 04:13 ABG Glucose 231 mg/dL (65-95) H 06/02/21 04:13 Oxyhemoglobin 96.0 % (95.0-99.0) 05/29/21 05:28 Carboxyhemoglobin 0.2 (0.5-1.5) L 06/02/21 04:13 FiO2 30 % 05/29/21 05:28 FiO2 % 30.0 06/02/21 04:13 Sodium 139 mmol/L (137-145) 06/06/21 04:57 Potassium 5.7 mmol/L (3.6-5.0) H 06/06/21 04:57 Chloride 99.5 mmol/L (98-107) 06/06/21 04:57 Carbon Dioxide 29 mmol/L (22-30) 06/06/21 04:57 Anion Gap 16 mmol/L 06/06/21 04:57 BUN 57 mg/dL (7-17) H 06/06/21 04:57 Creatinine 0.8 mg/dL (0.6-1.2) 06/06/21 04:57 Estimated GFR > 60 ml/min 06/06/21 04:57 BUN/Creatinine Ratio 71 % 06/06/21 04:57 Glucose 245 mg/dL (65-100) H 06/06/21 04:57 POC Glucose 217 mg/dL (70-105) H 06/06/21 05:02 Lactic Acid 2.30 mmol/L (0.7-2.0) H* 05/26/21 05:49 Calcium 8.6 mg/dL (8.4-10.2) 06/06/21 04:57 Ferritin 321.6 ng/mL (10.0-200.0) H 05/25/21 09:21 Total Bilirubin 0.30 mg/dL (0.1-1.2) 06/06/21 04:57 Direct Bilirubin < 0.2 mg/dL (0-0.2) 05/25/21 09:21 Indirect Bilirubin 0.2 mg/dL 05/25/21 09:21 AST 99 units/L (5-40) H 06/06/21 04:57 ALT 136 units/L (7-56) H 06/06/21 04:57 Alkaline Phosphatase 312 units/L (35-129) H 06/06/21 04:57 Lactate Dehydrogenase 445 units/L (91-180) H 05/25/21 09:21 Troponin T 0.226 ng/mL (0.00-0.029) H* D 05/25/21 15:19 C-Reactive Protein 0.20 mg/dL (0.00-1.30) 05/25/21 09:21 NT-Pro-B Natriuret Pep 173.2 pg/mL (0-900) 05/25/21 09:21 Total Protein 6.1 g/dL (6.3-8.2) L 06/06/21 04:57 Albumin 3.1 g/dL (3.9-5) L 06/06/21 04:57 Albumin/Globulin Ratio 1.0 % 06/06/21 04:57 Triglycerides 124 mg/dL (2-149) 05/30/21 11:19 Cholesterol 198 mg/dL (50-199) 05/25/21 15:19 LDL Cholesterol Direct 80 mg/dL (50-130) 05/25/21 15:19 HDL Cholesterol 64 mg/dL (40-59) H 05/25/21 15:19 Cholesterol/HDL Ratio 3.09 % 05/25/21 15:19 Procalcitonin < 0.05 ng/mL (<0.15) 05/25/21 09:21 Arterial Blood Glucose 231 mg/dL (65-95) H 06/02/21 04:13 Arterial Blood Ionized Calcium 4.6 mg/dL (4.6-5.3) 06/02/21 04:13 Urine Color Straw (Yellow) 05/25/21 10:42 Urine Turbidity Clear (Clear) 05/25/21 10:42 Urine pH 6.0 (5.0-7.0) 05/25/21 10:42 Ur Specific [place] 1.007 (1.003-1.030) 05/25/21 10:42 Urine Protein 100 mg/dl mg/dL (Negative) 05/25/21 10:42 Urine Glucose (UA) >=500 mg/dL (Negative) 05/25/21 10:42 Urine Ketones Neg mg/dL (Negative) 05/25/21 10:42 Urine Blood Mod (Negative) 05/25/21 10:42 Urine Nitrite Neg (Negative) 05/25/21 10:42 Ur Reducing Substances Not Reportable 05/25/21 10:42 Urine Bilirubin Neg (Negative) 05/25/21 10:42 Urine Ictotest Not Reportable 05/25/21 10:42 Urine Urobilinogen < 2.0 mg/dL (<2.0) 05/25/21 10:42 Ur Leukocyte Esterase Neg (Negative) 05/25/21 10:42 Urine WBC (Auto) 11.0 /HPF (0.0-6.0) H 05/25/21 10:42 Urine RBC (Auto) 1.0 /HPF (0.0-6.0) 05/25/21 10:42 U Epithel Cells (Auto) < 1.0 /HPF (0-13.0) 05/25/21 10:42 Urine Bacteria (Auto) 4+ /HPF (Negative) 05/25/21 10:42 Urine Mucus Few /HPF 05/25/21 10:42 Coronavirus (PCR) Negative (Negative) 05/30/21 08:15 Blood Type O POSITIVE 05/25/21 14:07 Antibody Screen Negative 05/25/21 14:07 Tan/IV: Voiding Method External Female Catheter Active Medications - Current Medications Current Medications: Generic Name Dose Route Start Last Admin Trade Name Freq PRN Reason Stop Dose Admin Acetaminophen 650 mg 05/25/21 13:48 05/28/21 04:14 Acetaminophen 325 Mg Tab PO 650 mg Q6H PRN Administration Pain MILD(1-3)/Fever >100.5/SOTOMAYOR Lipase/Protease/Amylase 1 each 05/26/21 10:00 Lipase 10,500/Protease 25,000/Amylase 43,750 (Units) Dr Munguia FEEDTUBE PRN PRN For Clogged Feeding Tube Dextrose 50 ml 05/28/21 14:28 Dextrose 50% In Water (25gm) 50 Ml Syringe IV Q30MIN PRN Hypoglycemia Protocol Doxazosin Mesylate 2 mg 06/01/21 12:00 06/06/21 09:03 Doxazosin 1 Mg Tab PO 2 mg BID ABDIRAHMAN Administration Famotidine 20 mg 05/29/21 10:00 06/06/21 09:03 Famotidine 20 Mg Tab FEEDTUBE 20 mg BID ABDIRAHMAN Administration Glycopyrrolate 2 mg 06/01/21 09:00 06/06/21 09:05 Glycopyrrolate 2 Mg Tab PO 2 mg TID ABDIRAHMAN Administration Heparin Sodium (Porcine) 2,700 unit 05/25/21 13:41 05/30/21 17:46 Heparin 10,000 Units/10 Ml Vial 40 unit/kg (2700 unit) 2,520 unit IV Administration Q6H PRN Anti-Xa Assay < 0.1 units/ml Hydralazine HCl 10 mg 06/01/21 11:43 Hydralazine 20 Mg/1 Ml Inj IV Q4HR PRN SBP >160 Hydralazine HCl 50 mg 06/03/21 22:00 06/05/21 21:19 Hydralazine 25 Mg Tab PO 50 mg Q8HR ABDIRAHMAN Administration Hydrophilic Ointment 1 applic 05/25/21 19:04 Lip Therapy Vaseline TP Q2HR PRN Dry Lips NORepinephrine/NS 8 MG-250 ML 8 mg in 250 mls @ 3.75 mls/hr 05/25/21 09:30 Norepinephrine/Ns 8 Mg-250 Ml (Double Conc) IV TITRATE ABDIRAHMAN Protocol 2 MCG/MIN Heparin Sodium/Sodium Chloride 25,000 unit in 500 mls @ 20 mls/hr 05/25/21 15:00 06/06/21 00:03 Heparin/ 0.45% Nacl-25,000 Unit/500 Ml IV 1,100 units/hr TITRATE ABDIRAHMAN 22 mls/hr Titration Protocol 1,000 UNITS/HR Propofol 1,000 mg in 100 mls @ 1.89 mls/hr 06/03/21 05:00 06/04/21 07:39 Diprivan 10 Mg/Ml IV 0 mcg/kg/min TITR ABDIRAHMAN 0 mls/hr Titration Protocol 5 MCG/KG/MIN Insulin Glargine 20 units 06/05/21 10:00 06/06/21 09:01 Insulin Glargine 100 Units/Ml SUB-Q 20 units DAILY ABDIRAHMAN Administration Insulin Human Lispro 0 unit 05/29/21 12:00 06/06/21 05:54 Insulin Lispro 100 Unit/Ml SUB-Q 4 unit Q6HR ABDIRAHMAN Administration Protocol Insulin Human Regular 5 units 06/06/21 12:00 Insulin Regular, Human 100 Units/1 Ml SUB-Q Q6H ABDIRAHMAN Labetalol HCl 300 mg 06/03/21 13:40 06/06/21 09:26 Labetalol 100 Mg Tab PO 300 mg BID ABDIRAHMAN Administration Levetiracetam 250 mg 06/01/21 22:00 06/06/21 09:01 Levetiracetam 500 Mg/5 Ml Oral Liqd FEEDTUBE 250 mg Q12HR ABDIRAHMAN Administration Lorazepam 2 mg 05/25/21 19:46 05/31/21 03:44 Lorazepam 2 Mg/Ml Vial IV 2 mg ONCE PRN Administration Seizure Metoclopramide HCl 5 mg 06/03/21 15:00 06/06/21 03:01 Metoclopramide 10 Mg/2 Ml Inj IV 5 mg Q12H ABDIRAHMAN Administration Multi-Ingred Cream/Lotion/Oil/Oint 1 applic 05/25/21 19:04 Mineral Oil/Petrolatum, White Ophth Oint 3.5 Gm OU Q4HR PRN Dry Eye(s) Polyethylene Glycol 17 gm 06/05/21 11:00 06/06/21 09:01 Polyethylene Glycol 3350 17 Gm Powder PO 17 gm QDAY ABDIRAHMAN Administration Senna/Docusate Sodium 1 tab 05/25/21 22:00 06/06/21 09:02 Sennosides/Docusate Sodium 8.6/50 Mg Tab FEEDTUBE 1 tab BID ABDIRAHMAN Administration Simple Syrup 15 ml 05/26/21 10:00 Simple Syrup 15 Ml FEEDTUBE PRN PRN Hypoglycemia Simple Syrup 30 ml 05/26/21 10:00 Simple Syrup 15 Ml FEEDTUBE PRN PRN Hypoglycemia Sodium Bicarbonate 325 mg 05/26/21 10:00 Sodium Bicarbonate 325 Mg Tab FEEDTUBE PRN PRN For Clogged Feeding Tube Sodium Chloride 10 ml 05/25/21 22:00 06/05/21 21:23 Sodium Chloride 0.9% 10 Ml Flush Syringe IV 10 ml BID ABDIRAHMAN Administration Sodium Chloride 10 ml 05/25/21 13:48 06/04/21 03:57 Sodium Chloride 0.9% 10 Ml Flush Syringe IV 10 ml PRN PRN Administration LINE FLUSH Valsartan 160 mg 06/01/21 12:00 06/06/21 09:04 Valsartan 160mg Tab PO 160 mg BID ABDIRAHMAN Administration Nutrition/Malnutrition Assess - Dietary Evaluation Nutrition/Malnutrition Findings: Nutrition Notes Start: 05/26/21 09:00 Freq: Status: Active Protocol: Document 06/02/21 11:57 GB (Rec: 06/02/21 12:04 GB [id number]) Nutrition Notes Initial or Follow up Reassessment Current Diagnosis COPD,Diabetes,Sepsis, Hypertension,Respiratory Failure Other Pertinent Diagnosis cardiac arrest, seizure disorder Current Diet NPO, Tube feeding Labs/Tests 06/02: Na 134, BUN 31, Creatinine 0.5, glucose 168 Pertinent Medications NaCl, off sedation 06/01 Height 5 ft 4 in Weight 63 kg [place] Body Weight (kg) 54.54 BMI 23.8 Weight change and time frame 05/25: 67.585kg 05/31: 63 kg change: -4.585kg for -6.7% loss Weight Status Appropriate Subjective/Other Information Vent continues. Daily spontaneous breathing checks for weaning. TF continues. Percent of energy/protein needs met: TF meets 100% estimated energy needs. Burn Absent Trauma Absent GI Symptoms None Food Allergy No Current % PO Other Minimum of two criteria No #1 Nutrition Diagnosis Inadequate oral intake Comments: 06/02: On vent. TF continues. Etiology ARF As Evidenced by Signs and Symptoms pt on vent and unable to consume PO Diagnosis Progress(for reassessment Continues documentation) Is patient on ventilator? Yes Is Patient Ambulatory and/or Out of Bed No REE-([facility] Jeco-confined to bed) 1385.676 Kcal/Kg value to use for calculation 23 Approximate Energy Requirements Using 1449 kcal/Kg Calculation Used for Recommendations Kcal/kg Additional Notes Protein: (1-1.5g/kg @63kg) 63- 95g Fluid: 1 ml/kcal or per MD Nutrition Intervention Change Diet Order: Continue NPO Nutrition Support: Vital AF 1.2 at 50 ml/hr Flush 75 ml q4h 06/02: continues Kcal 1,440 Protein (gm) 90 Fat (gm) 65 Fluid (mL) 973 Goal #1 Meet 75% or greater of protein and energy needs via TF Follow-Up By: 06/07/21 Additional Comments Vent status <GABRIELLA VILLA - Last Filed: 06/07/21 07:24> Assessment and Plan Assessment and plan: I saw and evaluated the patient. I agree with the findings and the plan of care as documented in the Nurse Practitioner's~note, with the following corrections and additions. Hospitalist Physical - Constitutional Vitals: Temp Pulse Resp BP Pulse Ox 99.2 F 85 18 148/53 97 06/07/21 07:17 06/07/21 06:30 06/07/21 04:00 06/07/21 06:30 06/07/21 06:30 HEART Score - HEART Score Troponin: Troponin T 0.226 ng/mL (0.00-0.029) H* D 05/25/21 15:19 Results - Labs CBC & Chem 7: 06/07/21 04:45 06/07/21 04:45 Labs: Laboratory Last Values WBC 21.5 K/mm3 (4.5-11.0) H 06/07/21 04:45 RBC 2.71 M/mm3 (3.65-5.03) L 06/07/21 04:45 Hgb 9.0 gm/dl (10.1-14.3) L 06/07/21 04:45 Hct 26.9 % (30.3-42.9) L 06/07/21 04:45 MCV 99 fl (79-97) H 06/07/21 04:45 MCH 33 pg (28-32) H 06/07/21 04:45 MCHC 33 % (30-34) 06/07/21 04:45 RDW 15.3 % (13.2-15.2) H 06/07/21 04:45 Plt Count 264 K/mm3 (140-440) 06/07/21 04:45 Lymph % (Auto) 14.3 % (13.4-35.0) 05/28/21 04:00 [place] % (Auto) 6.9 % (0.0-7.3) 05/28/21 04:00 Eos % (Auto) 0.1 % (0.0-4.3) 05/28/21 04:00 Baso % (Auto) 0.5 % (0.0-1.8) 05/28/21 04:00 Lymph # (Auto) 1.9 K/mm3 (1.2-5.4) 05/28/21 04:00 [place] # (Auto) 0.9 K/mm3 (0.0-0.8) H 05/28/21 04:00 Eos # (Auto) 0.0 K/mm3 (0.0-0.4) 05/28/21 04:00 Baso # (Auto) 0.1 K/mm3 (0.0-0.1) 05/28/21 04:00 Add Manual Diff Complete 06/04/21 05:57 Total Counted 100 06/04/21 05:57 Seg Neutrophils % 78.2 % (40.0-70.0) H 05/28/21 04:00 Seg Neuts % (Manual) 83.0 % (40.0-70.0) H 06/04/21 05:57 Band Neutrophils % 4.0 % 06/04/21 05:57 Lymphocytes % (Manual) 4.0 % (13.4-35.0) L 06/04/21 05:57 Monocytes % (Manual) 6.0 % (0.0-7.3) 06/04/21 05:57 Eosinophils % (Manual) 2.0 % (0.0-4.3) 06/04/21 05:57 Metamyelocytes % 1.0 % 05/25/21 09: Myelocytes % 1.0 % 06/04/21 05:57 Nucleated RBC % Not Reportable 06/04/21 05:57 Seg Neutrophils # 10.6 K/mm3 (1.8-7.7) H 05/28/21 04:00 Seg Neutrophils # Man 14.8 K/mm3 (1.8-7.7) H 06/04/21 05:57 Band Neutrophils # 0.7 K/mm3 06/04/21 05:57 Lymphocytes # (Manual) 0.7 K/mm3 (1.2-5.4) L 06/04/21 05:57 Abs React Lymphs (Man) 0.0 K/mm3 06/04/21 05:57 Monocytes # (Manual) 1.1 K/mm3 (0.0-0.8) H 06/04/21 05:57 Eosinophils # (Manual) 0.4 K/mm3 (0.0-0.4) 06/04/21 05:57 Basophils # (Manual) 0.0 K/mm3 (0.0-0.1) 06/04/21 05:57 Metamyelocytes # 0.0 K/mm3 06/04/21 05:57 Myelocytes # 0.2 K/mm3 06/04/21 05:57 Promyelocytes # 0.0 K/mm3 06/04/21 05:57 Blast Cells # 0.0 K/mm3 06/04/21 05:57 WBC Morphology Not Reportable 06/04/21 05:57 Hypersegmented Neuts Not Reportable 06/04/21 05:57 Hyposegmented Neuts Not Reportable 06/04/21 05:57 Hypogranular Neuts Not Reportable 06/04/21 05:57 Smudge Cells Not Reportable 06/04/21 05:57 Toxic Granulation Not Reportable 06/04/21 05:57 Toxic Vacuolation Not Reportable 06/04/21 05:57 Dohle Bodies Not Reportable 06/04/21 05:57 Pelger-Huet Anomaly Not Reportable 06/04/21 05:57 Peter Rods Not Reportable 06/04/21 05:57 Platelet Estimate Consistent w auto 06/04/21 05:57 Clumped Platelets Not Reportable 06/04/21 05:57 Plt Clumps, EDTA Not Reportable 06/04/21 05:57 Large Platelets Not Reportable 06/04/21 05:57 Giant Platelets Not Reportable 06/04/21 05:57 Platelet Satelliting Not Reportable 06/04/21 05:57 Plt Morphology Comment Not Reportable 06/04/21 05:57 RBC Morphology Normal 06/04/21 05:57 Dimorphic RBCs Not Reportable 06/04/21 05:57 Polychromasia Not Reportable 06/04/21 05:57 Hypochromasia Not Reportable 06/04/21 05:57 Poikilocytosis Not Reportable 06/04/21 05:57 Anisocytosis Not Reportable 06/04/21 05:57 Microcytosis Not Reportable 06/04/21 05:57 Macrocytosis Not Reportable 06/04/21 05:57 Spherocytes Not Reportable 06/04/21 05:57 Pappenheimer Bodies Not Reportable 06/04/21 05:57 Sickle Cells Not Reportable 06/04/21 05:57 Target Cells Not Reportable 06/04/21 05:57 Tear Drop Cells Not Reportable 06/04/21 05:57 Ovalocytes Not Reportable 06/04/21 05:57 Helmet Cells Not Reportable 06/04/21 05:57 [place] Bodies Not Reportable 06/04/21 05:57 [place] Rings Not Reportable 06/04/21 05:57 [place] Cells Not Reportable 06/04/21 05:57 Bite Cells Not Reportable 06/04/21 05:57 Crenated Cell Not Reportable 06/04/21 05:57 Elliptocytes Not Reportable 06/04/21 05:57 Acanthocytes (Spur) Not Reportable 06/04/21 05:57 Rouleaux Not Reportable 06/04/21 05:57 Hemoglobin C Crystals Not Reportable 06/04/21 05:57 Schistocytes Not Reportable 06/04/21 05:57 Malaria parasites Not Reportable 06/04/21 05:57 Shravan Bodies Not Reportable 06/04/21 05:57 Hem Pathologist Commnt No 06/04/21 05:57 PT 15.0 Sec. (12.2-14.9) H 05/25/21 09: INR 1.13 (0.87-1.13) 05/25/21 09:21 APTT 72.2 Sec. (24.2-36.6) H* 06/05/21 12:20 D-Dimer > 00523 ng/mlDDU (0-234) H 05/25/21 09:21 Heparin Anti-Xa Level 0.10 U.I./ml (0.3-0.7) L 06/07/21 04:45 ABG pH 7.481 (7.320-7.450) H 06/02/21 04:13 POC ABG pCO2 36.9 mmHg (32.0-48.0) 06/02/21 04:13 ABG pCO2 30.3 mm Hg 05/29/21 05:28 POC ABG pO2 80.0 mmHg (83-108) L 06/02/21 04:13 ABG pO2 96.2 mm Hg (80.0-90.0) H 05/29/21 05:28 POC ABG HCO3 26.9 06/02/21 04:13 ABG HCO3 24.0 mmol/L (20.0-26.0) 05/29/21 05:28 ABG O2 Saturation 95.7 (0-100) 06/02/21 04:13 ABG O2 Content 10.3 (0.0-44) 05/29/21 05:28 POC ABG Base Excess 3.4 06/02/21 04:13 ABG Base Excess 1.2 mmol/L (-2.0-3.0) 05/29/21 05:28 ABG Hemoglobin 11.1 (12.0-17.5) L 06/02/21 04:13 ABG Oxyhemoglobin 95.2 (94-98) 06/02/21 04:13 ABG Carboxyhemoglobin 1.6 % (0.0-5.0) 05/29/21 05:28 ABG Methemoglobin 0.3 (0.0-1.5) 06/02/21 04:13 ABG Sodium 131.9 mmol/L (136.0-145.0) L 06/02/21 04:13 ABG Potassium 3.8 mmol/L (3.40-4.50) 06/02/21 04:13 ABG Chloride 98.0 mmol/L (98-107) 06/02/21 04:13 ABG Glucose 231 mg/dL (65-95) H 06/02/21 04:13 Oxyhemoglobin 96.0 % (95.0-99.0) 05/29/21 05:28 Carboxyhemoglobin 0.2 (0.5-1.5) L 06/02/21 04:13 FiO2 30 % 05/29/21 05:28 FiO2 % 30.0 06/02/21 04:13 Sodium 138 mmol/L (137-145) 06/07/21 04:45 Potassium 5.4 mmol/L (3.6-5.0) H 06/07/21 04:45 Chloride 99.8 mmol/L (98-107) 06/07/21 04:45 Carbon Dioxide 27 mmol/L (22-30) 06/07/21 04:45 Anion Gap 17 mmol/L 06/07/21 04:45 BUN 55 mg/dL (7-17) H 06/07/21 04:45 Creatinine 0.8 mg/dL (0.6-1.2) 06/07/21 04:45 Estimated GFR > 60 ml/min 06/07/21 04:45 BUN/Creatinine Ratio 69 % 06/07/21 04:45 Glucose 178 mg/dL (65-100) H 06/07/21 04:45 POC Glucose 156 mg/dL (70-105) H 06/07/21 05:11 Lactic Acid 2.30 mmol/L (0.7-2.0) H* 05/26/21 05:49 Calcium 8.6 mg/dL (8.4-10.2) 06/07/21 04:45 Ferritin 321.6 ng/mL (10.0-200.0) H 05/25/21 09:21 Total Bilirubin 0.30 mg/dL (0.1-1.2) 06/06/21 04:57 Direct Bilirubin < 0.2 mg/dL (0-0.2) 05/25/21 09:21 Indirect Bilirubin 0.2 mg/dL 05/25/21 09:21 AST 99 units/L (5-40) H 06/06/21 04:57 ALT 136 units/L (7-56) H 06/06/21 04:57 Alkaline Phosphatase 312 units/L (35-129) H 06/06/21 04:57 Lactate Dehydrogenase 445 units/L (91-180) H 05/25/21 09:21 Troponin T 0.226 ng/mL (0.00-0.029) H* D 05/25/21 15:19 C-Reactive Protein 0.20 mg/dL (0.00-1.30) 05/25/21 09:21 NT-Pro-B Natriuret Pep 173.2 pg/mL (0-900) 05/25/21 09: Total Protein 6.1 g/dL (6.3-8.2) L 06/06/21 04:57 Albumin 3.1 g/dL (3.9-5) L 06/06/21 04:57 Albumin/Globulin Ratio 1.0 % 06/06/21 04:57 Triglycerides 124 mg/dL (2-149) 05/30/21 11:19 Cholesterol 198 mg/dL (50-199) 05/25/21 15:19 LDL Cholesterol Direct 80 mg/dL (50-130) 05/25/21 15:19 HDL Cholesterol 64 mg/dL (40-59) H 05/25/21 15:19 Cholesterol/HDL Ratio 3.09 % 05/25/21 15:19 Procalcitonin < 0.05 ng/mL (<0.15) 05/25/21 09:21 Arterial Blood Glucose 231 mg/dL (65-95) H 06/02/21 04:13 Arterial Blood Ionized Calcium 4.6 mg/dL (4.6-5.3) 06/02/21 04:13 Urine Color Straw (Yellow) 05/25/21 10:42 Urine Turbidity Clear (Clear) 05/25/21 10:42 Urine pH 6.0 (5.0-7.0) 05/25/21 10:42 Ur Specific [place] 1.007 (1.003-1.030) 05/25/21 10:42 Urine Protein 100 mg/dl mg/dL (Negative) 05/25/21 10:42 Urine Glucose (UA) >=500 mg/dL (Negative) 05/25/21 10:42 Urine Ketones Neg mg/dL (Negative) 05/25/21 10:42 Urine Blood Mod (Negative) 05/25/21 10:42 Urine Nitrite Neg (Negative) 05/25/21 10:42 Ur Reducing Substances Not Reportable 05/25/21 10:42 Urine Bilirubin Neg (Negative) 05/25/21 10:42 Urine Ictotest Not Reportable 05/25/21 10:42 Urine Urobilinogen < 2.0 mg/dL (<2.0) 05/25/21 10:42 Ur Leukocyte Esterase Neg (Negative) 05/25/21 10:42 Urine WBC (Auto) 11.0 /HPF (0.0-6.0) H 05/25/21 10:42 Urine RBC (Auto) 1.0 /HPF (0.0-6.0) 05/25/21 10:42 U Epithel Cells (Auto) < 1.0 /HPF (0-13.0) 05/25/21 10:42 Urine Bacteria (Auto) 4+ /HPF (Negative) 05/25/21 10:42 Urine Mucus Few /HPF 05/25/21 10:42 Coronavirus (PCR) Negative (Negative) 05/30/21 08:15 Blood Type O POSITIVE 05/25/21 14:07 Antibody Screen Negative 05/25/21 14:07 Tan/IV: Voiding Method External Female Catheter Active Medications - Current Medications Current Medications: Generic Name Dose Route Start Last Admin Trade Name Freq PRN Reason Stop Dose Admin Acetaminophen 650 mg 05/25/21 13:48 05/28/21 04:14 Acetaminophen 325 Mg Tab PO 650 mg Q6H PRN Administration Pain MILD(1-3)/Fever >100.5/SOTOMAYOR Lipase/Protease/Amylase 1 each 05/26/21 10:00 Lipase 10,500/Protease 25,000/Amylase 43,750 (Units) Dr Munguia FEEDTUBE PRN PRN For Clogged Feeding Tube Dextrose 50 ml 05/28/21 14:28 Dextrose 50% In Water (25gm) 50 Ml Syringe IV Q30MIN PRN Hypoglycemia Protocol Doxazosin Mesylate 2 mg 06/01/21 12:00 06/06/21 22:32 Doxazosin 1 Mg Tab PO 2 mg BID ABDIRAHMAN Administration Famotidine 20 mg 05/29/21 10:00 06/06/21 22:32 Famotidine 20 Mg Tab FEEDTUBE 20 mg BID ABDIRAHMAN Administration Glycopyrrolate 2 mg 06/01/21 09:00 06/06/21 22:34 Glycopyrrolate 2 Mg Tab PO 2 mg TID ABDIRAHMAN Administration Heparin Sodium (Porcine) 2,700 unit 05/25/21 13:41 05/30/21 17:46 Heparin 10,000 Units/10 Ml Vial 40 unit/kg (2700 unit) 2,520 unit IV Administration Q6H PRN Anti-Xa Assay < 0.1 units/ml Hydralazine HCl 10 mg 06/01/21 11:43 Hydralazine 20 Mg/1 Ml Inj IV Q4HR PRN SBP >160 Hydralazine HCl 50 mg 06/03/21 22:00 06/07/21 05:18 Hydralazine 25 Mg Tab PO 50 mg Q8HR ABDIRAHMAN Administration Hydrophilic Ointment 1 applic 05/25/21 19:04 Lip Therapy Vaseline TP Q2HR PRN Dry Lips NORepinephrine/NS 8 MG-250 ML 8 mg in 250 mls @ 3.75 mls/hr 05/25/21 09:30 Norepinephrine/Ns 8 Mg-250 Ml (Double Conc) IV TITRATE ABDIRAHMAN Protocol 2 MCG/MIN Heparin Sodium/Sodium Chloride 25,000 unit in 500 mls @ 20 mls/hr 05/25/21 15:00 06/07/21 07:09 Heparin/ 0.45% Nacl-25,000 Unit/500 Ml IV 1,200 units/hr TITRATE ABDIRAHMAN 24 mls/hr Titration Protocol 1,000 UNITS/HR Propofol 1,000 mg in 100 mls @ 1.89 mls/hr 06/03/21 05:00 06/04/21 07:39 Diprivan 10 Mg/Ml IV 0 mcg/kg/min TITR ABDIRAHMAN 0 mls/hr Titration Protocol 5 MCG/KG/MIN Insulin Glargine 20 units 06/05/21 10:00 06/06/21 09:01 Insulin Glargine 100 Units/Ml SUB-Q 20 units DAILY ABDIRAHMAN Administration Insulin Human Lispro 0 unit 05/29/21 12:00 06/07/21 05:58 Insulin Lispro 100 Unit/Ml SUB-Q 3 unit Q6HR ABDIRAHMAN Administration Protocol Insulin Human Regular 5 units 06/06/21 12:00 06/07/21 06:02 Insulin Regular, Human 100 Units/1 Ml SUB-Q 5 units Q6H ABDIRAHMAN Administration Labetalol HCl 300 mg 06/03/21 13:40 06/06/21 22:32 Labetalol 100 Mg Tab PO 300 mg BID ABDIRAHMAN Administration Levetiracetam 250 mg 06/01/21 22:00 06/06/21 22:32 Levetiracetam 500 Mg/5 Ml Oral Liqd FEEDTUBE 250 mg Q12HR ABDIRAHMAN Administration Lorazepam 2 mg 05/25/21 19:46 05/31/21 03:44 Lorazepam 2 Mg/Ml Vial IV 2 mg ONCE PRN Administration Seizure Metoclopramide HCl 5 mg 06/03/21 15:00 06/07/21 03:09 Metoclopramide 10 Mg/2 Ml Inj IV 5 mg Q12H ABDIRAHMAN Administration Multi-Ingred Cream/Lotion/Oil/Oint 1 applic 05/25/21 19:04 Mineral Oil/Petrolatum, White Ophth Oint 3.5 Gm OU Q4HR PRN Dry Eye(s) Polyethylene Glycol 17 gm 06/05/21 11:00 06/06/21 09:01 Polyethylene Glycol 3350 17 Gm Powder PO 17 gm QDAY ABDIRAHMAN Administration Senna/Docusate Sodium 1 tab 05/25/21 22:00 06/06/21 22:32 Sennosides/Docusate Sodium 8.6/50 Mg Tab FEEDTUBE 1 tab BID ABDIRAHMAN Administration Simple Syrup 15 ml 05/26/21 10:00 Simple Syrup 15 Ml FEEDTUBE PRN PRN Hypoglycemia Simple Syrup 30 ml 05/26/21 10:00 Simple Syrup 15 Ml FEEDTUBE PRN PRN Hypoglycemia Sodium Bicarbonate 325 mg 05/26/21 10:00 Sodium Bicarbonate 325 Mg Tab FEEDTUBE PRN PRN For Clogged Feeding Tube Sodium Chloride 10 ml 05/25/21 22:00 06/06/21 22:34 Sodium Chloride 0.9% 10 Ml Flush Syringe IV 10 ml BID ABDIRAHMAN Administration Sodium Chloride 10 ml 05/25/21 13:48 06/04/21 03:57 Sodium Chloride 0.9% 10 Ml Flush Syringe IV 10 ml PRN PRN Administration LINE FLUSH Valsartan 160 mg 06/01/21 12:00 06/06/21 22:32 Valsartan 160mg Tab PO 160 mg BID ABDIRAHMAN Administration Nutrition/Malnutrition Assess - Dietary Evaluation Nutrition/Malnutrition Findings: Nutrition Notes Start: 05/26/21 09:00 Freq: Status: Active Protocol: Document 06/02/21 11:57 GB (Rec: 06/02/21 12:04 GB [id number]) Nutrition Notes Initial or Follow up Reassessment Current Diagnosis COPD,Diabetes,Sepsis, Hypertension,Respiratory Failure Other Pertinent Diagnosis cardiac arrest, seizure disorder Current Diet NPO, Tube feeding Labs/Tests 06/02: Na 134, BUN 31, Creatinine 0.5, glucose 168 Pertinent Medications NaCl, off sedation 06/01 Height 5 ft 4 in Weight 63 kg [place] Body Weight (kg) 54.54 BMI 23.8 Weight change and time frame 05/25: 67.585kg 05/31: 63 kg change: -4.585kg for -6.7% loss Weight Status Appropriate Subjective/Other Information Vent continues. Daily spontaneous breathing checks for weaning. TF continues. Percent of energy/protein needs met: TF meets 100% estimated energy needs. Burn Absent Trauma Absent GI Symptoms None Food Allergy No Current % PO Other Minimum of two criteria No #1 Nutrition Diagnosis Inadequate oral intake Comments: 06/02: On vent. TF continues. Etiology ARF As Evidenced by Signs and Symptoms pt on vent and unable to consume PO Diagnosis Progress(for reassessment Continues documentation) Is patient on ventilator? Yes Is Patient Ambulatory and/or Out of Bed No REE-([facility], [place]-confined to bed) 1385.676 Kcal/Kg value to use for calculation 23 Approximate Energy Requirements Using 1449 kcal/Kg Calculation Used for Recommendations Kcal/kg Additional Notes Protein: (1-1.5g/kg @63kg) 63- 95g Fluid: 1 ml/kcal or per Nutrition Intervention Change Diet Order: Continue NPO Nutrition Support: Vital AF 1.2 at 50 ml/hr Flush 75 ml q4h 06/02: continues Kcal 1,440 Protein (gm) 90 Fat (gm) 65 Fluid (mL) 973 Goal #1 Meet 75% or greater of protein and energy needs via TF Follow-Up By: 06/07/21 Additional Comments Vent status
--- NOTE | 2021-06-06 11:27 | Progress Note ---
Assessment and Plan Acute hypoxemic respiratory failure on MVS Cardiopulmonary arrest wtih ROSC Seizure disorder Sepsis Toxic metabolic encephalopathy, possible anoxia Atrial fibrillation with RVR Metabolic acidosis Bilateral lower lobe infiltrates - await families decision re: trach and PEG - received kayexalate for hyperkalemia - repeat CXR in am - continue care as below otherwise; - will likely need trach for safe liberation from MVS except there is significant improvement in mental status - continue scopolamine for secretion control - continue Keppra as AED - daily SAT and SBT assessment as tolerated - continue to wean supplemental oxygen for target O2 sat's > 90% acutely - VAP bundle addressed - continue lung protective strategies - continue bronchodilators with pulmonary hygiene per RT - wean per pulmonary driven protocols otherwise - continue accuchecks with glycemic control per SSI (While critically ill target blood glucose of 140-180 mg/dL; avoid hypoglycemia) - sedation prn for target RASS 0 to -1 - avoid nephrotoxins, renally dose all medications - continue to avoid benzodiazepine's, reduce the possibility of delirium - AB's per ID rec's - prn analgesia per CPOT score - Maintenance of sleep-wake cycle, avoid delirium - continue enteral nutritional support at goal rate as tolerated - G.I. & VTE prophylaxis - PT/OT/ROM exercises - continue mobility protocols for pressure ulcer prophylaxis - Monitor hemodynamics closely - continue other care per attending / other consultants - discharge planning ongoing concurrently COVID SPECIFIC INTERVENTIONS - COVID-19 PCR negative .... Re-evaluate in am & prn CONDITION: CRITICAL PROGNOSIS: GUARDED CODE STATUS: FULL CODE The high probability of a clinically significant, sudden or life-threatening deterioration of the [respiratory, cardiovascular & neurologic] system(s) required my full and direct attention, intervention and personal management. The aggregate critical care time was [33] minutes without overlap. Time includes spent on; [x] Data Review and interpretation [x] Patient assessment and monitoring of vital signs [x] Documentation [x] Medication orders and management Subjective Date of service: 06/06/21 Principal diagnosis: Ac hypoxemic resp failure; Cardiac arrest; Seizures; Sepsis; AMS; A-Fib RVR Interval history: Patient is seen today for: Acute hypoxemic respiratory failure; Cardiac arrest wtih ROSC; Seizure disorder; Sepsis; AMS; A-Fib with RVR Seen and examined at bedside; 24hour events reviewed; nursing and respiratory care staff consulted; no adverse overnight events reported to me; resting in bed; remains on MVS; family visited today; she is tolerating SBT's but AMS precludes safe extubation acutely Objective Vital Signs - 12hr 06/05/21 06/05/21 06/05/21 23:30 23:45 23:51 Temperature 98.1 F Pulse Rate 78 78 Pulse Rate [ From Monitor] Respiratory 12 12 Rate Blood Pressure 138/61 136/61 O2 Sat by Pulse 98 99 Oximetry 06/06/21 06/06/21 06/06/21 00:00 00:15 00:30 Temperature Pulse Rate 78 76 79 Pulse Rate [ 77 From Monitor] Respiratory 13 13 15 Rate Blood Pressure 141/63 153/67 146/69 O2 Sat by Pulse 99 98 100 Oximetry 06/06/21 06/06/21 06/06/21 00:45 01:00 01:15 Temperature Pulse Rate 77 76 78 Pulse Rate [ From Monitor] Respiratory 13 15 15 Rate Blood Pressure 147/69 152/66 141/54 O2 Sat by Pulse 99 99 99 Oximetry 06/06/21 06/06/21 06/06/21 01:30 01:45 02:00 Temperature Pulse Rate 75 73 76 Pulse Rate [ From Monitor] Respiratory 13 13 14 Rate Blood Pressure 139/53 141/53 138/56 O2 Sat by Pulse 99 99 99 Oximetry 06/06/21 06/06/21 06/06/21 02:15 02:30 02:45 Temperature Pulse Rate 75 77 74 Pulse Rate [ From Monitor] Respiratory 12 15 13 Rate Blood Pressure 140/52 138/55 137/49 O2 Sat by Pulse 99 99 99 Oximetry 06/06/21 06/06/21 06/06/21 03:00 03:15 03:30 Temperature Pulse Rate 77 73 75 Pulse Rate [ From Monitor] Respiratory 14 13 15 Rate Blood Pressure 142/52 131/50 147/55 O2 Sat by Pulse 99 99 98 Oximetry 06/06/21 06/06/21 06/06/21 03:31 03:45 04:00 Temperature 98.4 F Pulse Rate 79 75 Pulse Rate [ 79 From Monitor] Respiratory 16 13 Rate Blood Pressure 157/54 132/48 O2 Sat by Pulse 99 99 Oximetry 06/06/21 06/06/21 06/06/21 04:15 04:30 04:45 Temperature Pulse Rate 78 80 75 Pulse Rate [ From Monitor] Respiratory 17 13 20 Rate Blood Pressure 158/54 146/54 146/48 O2 Sat by Pulse 100 100 97 Oximetry 06/06/21 06/06/21 06/06/21 05:00 05:15 05:30 Temperature Pulse Rate 78 79 82 Pulse Rate [ From Monitor] Respiratory 17 18 18 Rate Blood Pressure 135/47 146/51 143/51 O2 Sat by Pulse 90 90 90 Oximetry 06/06/21 06/06/21 06/06/21 05:45 06:00 06:15 Temperature Pulse Rate 81 80 78 Pulse Rate [ From Monitor] Respiratory 16 15 16 Rate Blood Pressure 147/51 163/58 150/52 O2 Sat by Pulse 91 100 99 Oximetry 06/06/21 06/06/21 06/06/21 06:30 06:45 07:00 Temperature 97.7 F Pulse Rate 80 81 85 Pulse Rate [ From Monitor] Respiratory 15 15 20 Rate Blood Pressure 147/52 162/55 162/63 O2 Sat by Pulse 99 100 99 Oximetry 06/06/21 06/06/21 06/06/21 07:15 07:33 07:36 Temperature Pulse Rate 80 86 83 Pulse Rate [ From Monitor] Respiratory 15 19 Rate Blood Pressure 150/57 170/79 170/79 O2 Sat by Pulse 99 100 100 Oximetry 06/06/21 06/06/21 06/06/21 08:00 09:03 09:04 Temperature Pulse Rate 80 80 Pulse Rate [ 79 From Monitor] Respiratory 18 Rate Blood Pressure 139/47 139/47 O2 Sat by Pulse 98 Oximetry Constitutional: appears uncomfortable, other (elderly female with mildly increased respiratory effort at rest on MVS) Eyes: non-icteric ENT: oropharynx moist, oropharyngeal exudate pre (clear), other (ETT at 23cm [place]) Neck: supple, no lymphadenopathy Effort: mildly labored Ascultation: Bilateral: diminished breath sounds, rhonchi Percussion: Bilateral: not dull Cardiovascular: irregular rhythm, other (S1,S2) Gastrointestinal: normoactive bowel sounds Integumentary: normal Extremities: no cyanosis, pink and warm, pulses normal, other (Right femoral CVL) Neurologic: pupils equal and round, other (encephalopathic; sedated) Psychiatric: other (unable to assess) CBC and BMP: 06/07/21 04:45 06/07/21 04:45 ABG, PT/INR, D-dimer: ABG ABG pH 7.481 (7.320-7.450) H 06/02/21 04:13 POC ABG pCO2 36.9 mmHg (32.0-48.0) 06/02/21 04:13 ABG pCO2 30.3 mm Hg 05/29/21 05:28 POC ABG pO2 80.0 mmHg (83-108) L 06/02/21 04:13 ABG pO2 96.2 mm Hg (80.0-90.0) H 05/29/21 05:28 POC ABG HCO3 26.9 06/02/21 04:13 ABG O2 Saturation 95.7 (0-100) 06/02/21 04:13 PT/INR, D-dimer PT 15.0 Sec. (12.2-14.9) H 05/25/21 09:21 INR 1.13 (0.87-1.13) 05/25/21 09:21 D-Dimer > 40139 ng/mlDDU (0-234) H 05/25/21 09:21 Abnormal lab findings: Abnormal Labs 05/25/21 05/25/21 05/25/21 09:07 09:21 09:21 WBC 17.1 H RBC Hgb Hct MCV 106 H MCH 33 H MCHC RDW 15.6 H [place] # (Auto) Seg Neutrophils % Seg Neuts % (Manual) Lymphocytes % (Manual) Monocytes % (Manual) Seg Neutrophils # Seg Neutrophils # Man 10.1 H Lymphocytes # (Manual) 5.6 H Monocytes # (Manual) PT 15.0 H APTT 44.3 H D-Dimer > 02243 H Heparin Anti-Xa Level ABG pH 7.116 L POC ABG pCO2 POC ABG pO2 ABG pO2 ABG Hemoglobin ABG Oxyhemoglobin 93.7 L ABG Sodium ABG Potassium ABG Chloride ABG Glucose 395 H Carboxyhemoglobin Sodium Potassium Chloride Carbon Dioxide BUN Creatinine Glucose POC Glucose Lactic Acid Calcium Ferritin AST ALT Alkaline Phosphatase Lactate Dehydrogenase Troponin T Total Protein Albumin HDL Cholesterol Arterial Blood Glucose 395 H Arterial Blood Ionized Calcium 4.4 L Urine WBC (Auto) 05/25/21 05/25/21 05/25/21 09:21 09:21 09:21 WBC RBC Hgb Hct MCV MCH MCHC RDW [place] # (Auto) Seg Neutrophils % Seg Neuts % (Manual) Lymphocytes % (Manual) Monocytes % (Manual) Seg Neutrophils # Seg Neutrophils # Man Lymphocytes # (Manual) Monocytes # (Manual) PT APTT D-Dimer Heparin Anti-Xa Level ABG pH POC ABG pCO2 POC ABG pO2 ABG pO2 ABG Hemoglobin ABG Oxyhemoglobin ABG Sodium ABG Potassium ABG Chloride ABG Glucose Carboxyhemoglobin Sodium Potassium Chloride Carbon Dioxide 10 L BUN Creatinine Glucose 423 H 424 H POC Glucose Lactic Acid Calcium 8.2 L Ferritin 321.6 H AST 162 H ALT 119 H Alkaline Phosphatase Lactate Dehydrogenase 445 H Troponin T Total Protein 5.6 L Albumin 3.2 L HDL Cholesterol Arterial Blood Glucose Arterial Blood Ionized Calcium Urine WBC (Auto) 05/25/21 05/25/21 05/25/21 09:35 10:42 11:12 WBC RBC Hgb Hct MCV MCH MCHC RDW [place] # (Auto) Seg Neutrophils % Seg Neuts % (Manual) Lymphocytes % (Manual) Monocytes % (Manual) Seg Neutrophils # Seg Neutrophils # Man Lymphocytes # (Manual) Monocytes # (Manual) PT APTT D-Dimer Heparin Anti-Xa Level ABG pH POC ABG pCO2 POC ABG pO2 ABG pO2 ABG Hemoglobin ABG Oxyhemoglobin ABG Sodium ABG Potassium ABG Chloride ABG Glucose Carboxyhemoglobin Sodium Potassium Chloride Carbon Dioxide BUN Creatinine Glucose POC Glucose Lactic Acid 16.70 H* 7.70 H* Calcium Ferritin AST ALT Alkaline Phosphatase Lactate Dehydrogenase Troponin T Total Protein Albumin HDL Cholesterol Arterial Blood Glucose Arterial Blood Ionized Calcium Urine WBC (Auto) 11.0 H 05/25/21 05/25/21 05/25/21 14:07 15:19 19:04 WBC RBC Hgb Hct MCV MCH MCHC RDW [place] # (Auto) Seg Neutrophils % Seg Neuts % (Manual) Lymphocytes % (Manual) Monocytes % (Manual) Seg Neutrophils # Seg Neutrophils # Man Lymphocytes # (Manual) Monocytes # (Manual) PT APTT D-Dimer Heparin Anti-Xa Level ABG pH POC ABG pCO2 POC ABG pO2 172.2 H ABG pO2 ABG Hemoglobin ABG Oxyhemoglobin 98.7 H ABG Sodium 135.7 L ABG Potassium ABG Chloride ABG Glucose 255 H Carboxyhemoglobin 0.3 L Sodium Potassium Chloride Carbon Dioxide BUN Creatinine Glucose POC Glucose Lactic Acid 3.90 H* Calcium Ferritin AST ALT Alkaline Phosphatase Lactate Dehydrogenase Troponin T 0.226 H* D Total Protein Albumin HDL Cholesterol 64 H Arterial Blood Glucose 255 H Arterial Blood Ionized Calcium 3.8 L Urine WBC (Auto) 05/25/21 05/25/21 05/26/21 21:16 21:16 04:00 WBC RBC Hgb Hct MCV MCH MCHC RDW [place] # (Auto) Seg Neutrophils % Seg Neuts % (Manual) Lymphocytes % (Manual) Monocytes % (Manual) Seg Neutrophils # Seg Neutrophils # Man Lymphocytes # (Manual) Monocytes # (Manual) PT APTT D-Dimer Heparin Anti-Xa Level 1.19 H ABG pH 7.547 H POC ABG pCO2 POC ABG pO2 ABG pO2 ABG Hemoglobin 11.9 L ABG Oxyhemoglobin ABG Sodium 133.2 L ABG Potassium 3.1 L ABG Chloride ABG Glucose 243 H Carboxyhemoglobin 0.3 L Sodium Potassium Chloride Carbon Dioxide BUN Creatinine Glucose POC Glucose Lactic Acid 2.50 H* Calcium Ferritin AST ALT Alkaline Phosphatase Lactate Dehydrogenase Troponin T Total Protein Albumin HDL Cholesterol Arterial Blood Glucose 243 H Arterial Blood Ionized Calcium Urine WBC (Auto) 05/26/21 05/26/21 05/26/21 05:49 05:49 17:33 WBC RBC Hgb Hct MCV MCH MCHC RDW [place] # (Auto) Seg Neutrophils % Seg Neuts % (Manual) Lymphocytes % (Manual) Monocytes % (Manual) Seg Neutrophils # Seg Neutrophils # Man Lymphocytes # (Manual) Monocytes # (Manual) PT APTT D-Dimer Heparin Anti-Xa Level ABG pH POC ABG pCO2 POC ABG pO2 ABG pO2 ABG Hemoglobin ABG Oxyhemoglobin ABG Sodium ABG Potassium ABG Chloride ABG Glucose Carboxyhemoglobin Sodium Potassium Chloride Carbon Dioxide BUN Creatinine Glucose 226 H POC Glucose 156 H Lactic Acid 2.30 H* Calcium 7.2 L Ferritin AST 111 H ALT 97 H Alkaline Phosphatase Lactate Dehydrogenase Troponin T Total Protein 5.4 L Albumin 3.3 L HDL Cholesterol Arterial Blood Glucose Arterial Blood Ionized Calcium Urine WBC (Auto) 05/27/21 05/27/21 05/27/21 02:11 02:11 02:11 WBC 14.3 H RBC 3.27 L Hgb Hct MCV 99 H MCH 33 H MCHC RDW 15.3 H [place] # (Auto) 1.0 H Seg Neutrophils % Seg Neuts % (Manual) Lymphocytes % (Manual) Monocytes % (Manual) Seg Neutrophils # 10.0 H Seg Neutrophils # Man Lymphocytes # (Manual) Monocytes # (Manual) PT APTT D-Dimer Heparin Anti-Xa Level 0.80 H ABG pH POC ABG pCO2 POC ABG pO2 ABG pO2 ABG Hemoglobin ABG Oxyhemoglobin ABG Sodium ABG Potassium ABG Chloride ABG Glucose Carboxyhemoglobin Sodium Potassium 2.9 L* D Chloride Carbon Dioxide 31 H BUN 6 L Creatinine Glucose 215 H POC Glucose Lactic Acid Calcium 8.1 L Ferritin AST ALT Alkaline Phosphatase Lactate Dehydrogenase Troponin T Total Protein Albumin HDL Cholesterol Arterial Blood Glucose Arterial Blood Ionized Calcium Urine WBC (Auto) 05/27/21 05/27/21 05/27/21 11:24 12:49 18:06 WBC RBC Hgb Hct MCV MCH MCHC RDW [place] # (Auto) Seg Neutrophils % Seg Neuts % (Manual) Lymphocytes % (Manual) Monocytes % (Manual) Seg Neutrophils # Seg Neutrophils # Man Lymphocytes # (Manual) Monocytes # (Manual) PT APTT D-Dimer Heparin Anti-Xa Level ABG pH POC ABG pCO2 POC ABG pO2 ABG pO2 ABG Hemoglobin ABG Oxyhemoglobin ABG Sodium ABG Potassium ABG Chloride ABG Glucose Carboxyhemoglobin Sodium Potassium Chloride Carbon Dioxide BUN Creatinine Glucose POC Glucose 151 H 165 H 137 H Lactic Acid Calcium Ferritin AST ALT Alkaline Phosphatase Lactate Dehydrogenase Troponin T Total Protein Albumin HDL Cholesterol Arterial Blood Glucose Arterial Blood Ionized Calcium Urine WBC (Auto) 05/28/21 05/28/21 05/28/21 04:00 04:00 06:02 WBC 13.5 H RBC 3.05 L Hgb Hct MCV 100 H MCH 34 H MCHC RDW [place] # (Auto) 0.9 H Seg Neutrophils % 78.2 H Seg Neuts % (Manual) Lymphocytes % (Manual) Monocytes % (Manual) Seg Neutrophils # 10.6 H Seg Neutrophils # Man Lymphocytes # (Manual) Monocytes # (Manual) PT APTT D-Dimer Heparin Anti-Xa Level ABG pH 7.507 H POC ABG pCO2 POC ABG pO2 ABG pO2 ABG Hemoglobin 10.6 L ABG Oxyhemoglobin ABG Sodium 129.4 L ABG Potassium ABG Chloride ABG Glucose 243 H Carboxyhemoglobin 0.2 L Sodium 136 L D Potassium Chloride Carbon Dioxide BUN Creatinine Glucose 215 H POC Glucose Lactic Acid Calcium Ferritin AST ALT Alkaline Phosphatase Lactate Dehydrogenase Troponin T Total Protein Albumin HDL Cholesterol Arterial Blood Glucose 243 H Arterial Blood Ionized Calcium 4.1 L Urine WBC (Auto) 05/28/21 05/28/21 05/29/21 11:27 23:02 04:30 WBC RBC Hgb 9.3 L Hct 26.7 L MCV MCH MCHC RDW [place] # (Auto) Seg Neutrophils % Seg Neuts % (Manual) Lymphocytes % (Manual) Monocytes % (Manual) Seg Neutrophils # Seg Neutrophils # Man Lymphocytes # (Manual) Monocytes # (Manual) PT APTT D-Dimer Heparin Anti-Xa Level ABG pH POC ABG pCO2 POC ABG pO2 ABG pO2 ABG Hemoglobin ABG Oxyhemoglobin ABG Sodium ABG Potassium ABG Chloride ABG Glucose Carboxyhemoglobin Sodium Potassium Chloride Carbon Dioxide BUN Creatinine Glucose POC Glucose 220 H 212 H Lactic Acid Calcium Ferritin AST ALT Alkaline Phosphatase Lactate Dehydrogenase Troponin T Total Protein Albumin HDL Cholesterol Arterial Blood Glucose Arterial Blood Ionized Calcium Urine WBC (Auto) 05/29/21 05/29/21 05/29/21 05:02 05:28 12:55 WBC RBC Hgb Hct MCV MCH MCHC RDW [place] # (Auto) Seg Neutrophils % Seg Neuts % (Manual) Lymphocytes % (Manual) Monocytes % (Manual) Seg Neutrophils # Seg Neutrophils # Man Lymphocytes # (Manual) Monocytes # (Manual) PT APTT D-Dimer Heparin Anti-Xa Level ABG pH 7.516 H POC ABG pCO2 POC ABG pO2 ABG pO2 96.2 H ABG Hemoglobin 7.5 L ABG Oxyhemoglobin ABG Sodium ABG Potassium ABG Chloride ABG Glucose Carboxyhemoglobin Sodium Potassium Chloride Carbon Dioxide BUN Creatinine Glucose POC Glucose 197 H 251 H Lactic Acid Calcium Ferritin AST ALT Alkaline Phosphatase Lactate Dehydrogenase Troponin T Total Protein Albumin HDL Cholesterol Arterial Blood Glucose Arterial Blood Ionized Calcium Urine WBC (Auto) 05/29/21 05/29/21 05/30/21 18:23 23:31 04:10 WBC RBC Hgb Hct MCV MCH MCHC RDW [place] # (Auto) Seg Neutrophils % Seg Neuts % (Manual) Lymphocytes % (Manual) Monocytes % (Manual) Seg Neutrophils # Seg Neutrophils # Man Lymphocytes # (Manual) Monocytes # (Manual) PT APTT D-Dimer Heparin Anti-Xa Level ABG pH 7.532 H POC ABG pCO2 30.0 L POC ABG pO2 78.5 L ABG pO2 ABG Hemoglobin 11.3 L ABG Oxyhemoglobin ABG Sodium 126.7 L ABG Potassium ABG Chloride 94.0 L ABG Glucose 270 H Carboxyhemoglobin 0.4 L Sodium Potassium Chloride Carbon Dioxide BUN Creatinine Glucose POC Glucose 236 H 252 H Lactic Acid Calcium Ferritin AST ALT Alkaline Phosphatase Lactate Dehydrogenase Troponin T Total Protein Albumin HDL Cholesterol Arterial Blood Glucose 270 H Arterial Blood Ionized Calcium 4.4 L Urine WBC (Auto) 05/30/21 05/30/21 05/30/21 05:06 06:23 11:15 WBC RBC Hgb Hct MCV MCH MCHC RDW [place] # (Auto) Seg Neutrophils % Seg Neuts % (Manual) Lymphocytes % (Manual) Monocytes % (Manual) Seg Neutrophils # Seg Neutrophils # Man Lymphocytes # (Manual) Monocytes # (Manual) PT APTT D-Dimer Heparin Anti-Xa Level ABG pH POC ABG pCO2 POC ABG pO2 ABG pO2 ABG Hemoglobin ABG Oxyhemoglobin ABG Sodium ABG Potassium ABG Chloride ABG Glucose Carboxyhemoglobin Sodium 126 L D Potassium Chloride 91.9 L Carbon Dioxide 20 L D BUN Creatinine 0.4 L Glucose 274 H POC Glucose 242 H 346 H Lactic Acid Calcium Ferritin AST ALT Alkaline Phosphatase Lactate Dehydrogenase Troponin T Total Protein Albumin HDL Cholesterol Arterial Blood Glucose Arterial Blood Ionized Calcium Urine WBC (Auto) 05/30/21 05/30/21 05/30/21 11:19 11:19 11:19 WBC 18.9 H RBC 3.36 L Hgb Hct MCV 102 H MCH 33 H MCHC RDW 15.5 H [place] # (Auto) Seg Neutrophils % Seg Neuts % (Manual) Lymphocytes % (Manual) Monocytes % (Manual) Seg Neutrophils # Seg Neutrophils # Man Lymphocytes # (Manual) Monocytes # (Manual) PT APTT D-Dimer Heparin Anti-Xa Level < 0.10 L ABG pH POC ABG pCO2 POC ABG pO2 ABG pO2 ABG Hemoglobin ABG Oxyhemoglobin ABG Sodium ABG Potassium ABG Chloride ABG Glucose Carboxyhemoglobin Sodium 124 L Potassium Chloride Carbon Dioxide BUN Creatinine Glucose POC Glucose Lactic Acid Calcium Ferritin AST ALT Alkaline Phosphatase Lactate Dehydrogenase Troponin T Total Protein Albumin HDL Cholesterol Arterial Blood Glucose Arterial Blood Ionized Calcium Urine WBC (Auto) 05/30/21 05/30/21 05/31/21 17:02 23:27 03:37 WBC RBC Hgb Hct MCV MCH MCHC RDW [place] # (Auto) Seg Neutrophils % Seg Neuts % (Manual) Lymphocytes % (Manual) Monocytes % (Manual) Seg Neutrophils # Seg Neutrophils # Man Lymphocytes # (Manual) Monocytes # (Manual) PT APTT D-Dimer Heparin Anti-Xa Level ABG pH POC ABG pCO2 POC ABG pO2 ABG pO2 ABG Hemoglobin 11.6 L ABG Oxyhemoglobin ABG Sodium 130.0 L ABG Potassium ABG Chloride 95.0 L ABG Glucose 292 H Carboxyhemoglobin Sodium Potassium Chloride Carbon Dioxide BUN Creatinine Glucose POC Glucose 270 H 237 H Lactic Acid Calcium Ferritin AST ALT Alkaline Phosphatase Lactate Dehydrogenase Troponin T Total Protein Albumin HDL Cholesterol Arterial Blood Glucose 292 H Arterial Blood Ionized Calcium Urine WBC (Auto) 05/31/21 05/31/21 05/31/21 04:00 04:00 05:20 WBC 20.9 H RBC 3.13 L Hgb Hct MCV 99 H MCH 34 H MCHC RDW [place] # (Auto) Seg Neutrophils % Seg Neuts % (Manual) 81.0 H Lymphocytes % (Manual) 8.0 L Monocytes % (Manual) 9.0 H Seg Neutrophils # Seg Neutrophils # Man 16.9 H Lymphocytes # (Manual) Monocytes # (Manual) 1.9 H PT APTT D-Dimer Heparin Anti-Xa Level ABG pH POC ABG pCO2 POC ABG pO2 ABG pO2 ABG Hemoglobin ABG Oxyhemoglobin ABG Sodium ABG Potassium ABG Chloride ABG Glucose Carboxyhemoglobin Sodium 133 L D Potassium Chloride 95.4 L Carbon Dioxide 21 L BUN 30 H Creatinine 0.5 L Glucose 305 H POC Glucose 269 H Lactic Acid Calcium Ferritin AST ALT Alkaline Phosphatase Lactate Dehydrogenase Troponin T Total Protein Albumin HDL Cholesterol Arterial Blood Glucose Arterial Blood Ionized Calcium Urine WBC (Auto) 05/31/21 05/31/21 05/31/21 11:40 18:16 23:25 WBC RBC Hgb Hct MCV MCH MCHC RDW [place] # (Auto) Seg Neutrophils % Seg Neuts % (Manual) Lymphocytes % (Manual) Monocytes % (Manual) Seg Neutrophils # Seg Neutrophils # Man Lymphocytes # (Manual) Monocytes # (Manual) PT APTT D-Dimer Heparin Anti-Xa Level ABG pH POC ABG pCO2 POC ABG pO2 ABG pO2 ABG Hemoglobin ABG Oxyhemoglobin ABG Sodium ABG Potassium ABG Chloride ABG Glucose Carboxyhemoglobin Sodium Potassium Chloride Carbon Dioxide BUN Creatinine Glucose POC Glucose 364 H 250 H 231 H Lactic Acid Calcium Ferritin AST ALT Alkaline Phosphatase Lactate Dehydrogenase Troponin T Total Protein Albumin HDL Cholesterol Arterial Blood Glucose Arterial Blood Ionized Calcium Urine WBC (Auto) 06/01/21 06/01/21 06/01/21 04:03 04:58 04:58 WBC 20.7 H RBC 3.20 L Hgb Hct MCV 99 H MCH 34 H MCHC RDW [place] # (Auto) Seg Neutrophils % Seg Neuts % (Manual) 82.0 H Lymphocytes % (Manual) 9.0 L Monocytes % (Manual) Seg Neutrophils # Seg Neutrophils # Man 17.0 H Lymphocytes # (Manual) Monocytes # (Manual) 1.4 H PT APTT D-Dimer Heparin Anti-Xa Level 1.18 H ABG pH 7.520 H POC ABG pCO2 POC ABG pO2 66.0 L ABG pO2 ABG Hemoglobin ABG Oxyhemoglobin 92.5 L ABG Sodium 133.6 L ABG Potassium ABG Chloride ABG Glucose 250 H Carboxyhemoglobin Sodium Potassium Chloride Carbon Dioxide BUN Creatinine Glucose POC Glucose Lactic Acid Calcium Ferritin AST ALT Alkaline Phosphatase Lactate Dehydrogenase Troponin T Total Protein Albumin HDL Cholesterol Arterial Blood Glucose 250 H Arterial Blood Ionized Calcium 4.4 L Urine WBC (Auto) 06/01/21 06/01/21 06/01/21 04:58 05:29 11:39 WBC RBC Hgb Hct MCV MCH MCHC RDW [place] # (Auto) Seg Neutrophils % Seg Neuts % (Manual) Lymphocytes % (Manual) Monocytes % (Manual) Seg Neutrophils # Seg Neutrophils # Man Lymphocytes # (Manual) Monocytes # (Manual) PT APTT D-Dimer Heparin Anti-Xa Level ABG pH POC ABG pCO2 POC ABG pO2 ABG pO2 ABG Hemoglobin ABG Oxyhemoglobin ABG Sodium ABG Potassium ABG Chloride ABG Glucose Carboxyhemoglobin Sodium 131 L Potassium Chloride 95.7 L Carbon Dioxide BUN 30 H Creatinine 0.5 L Glucose 241 H POC Glucose 215 H 299 H Lactic Acid Calcium Ferritin AST ALT Alkaline Phosphatase Lactate Dehydrogenase Troponin T Total Protein Albumin HDL Cholesterol Arterial Blood Glucose Arterial Blood Ionized Calcium Urine WBC (Auto) 06/01/21 06/02/21 06/02/21 18:14 00:12 02:25 WBC 17.4 H RBC 3.09 L Hgb Hct MCV 101 H MCH 34 H MCHC RDW 15.5 H [place] # (Auto) Seg Neutrophils % Seg Neuts % (Manual) Lymphocytes % (Manual) Monocytes % (Manual) Seg Neutrophils # Seg Neutrophils # Man Lymphocytes # (Manual) Monocytes # (Manual) PT APTT D-Dimer Heparin Anti-Xa Level ABG pH POC ABG pCO2 POC ABG pO2 ABG pO2 ABG Hemoglobin ABG Oxyhemoglobin ABG Sodium ABG Potassium ABG Chloride ABG Glucose Carboxyhemoglobin Sodium Potassium Chloride Carbon Dioxide BUN Creatinine Glucose POC Glucose 215 H 175 H Lactic Acid Calcium Ferritin AST ALT Alkaline Phosphatase Lactate Dehydrogenase Troponin T Total Protein Albumin HDL Cholesterol Arterial Blood Glucose Arterial Blood Ionized Calcium Urine WBC (Auto) 06/02/21 06/02/21 06/02/21 02:25 04:13 04:58 WBC RBC Hgb Hct MCV MCH MCHC RDW [place] # (Auto) Seg Neutrophils % Seg Neuts % (Manual) Lymphocytes % (Manual) Monocytes % (Manual) Seg Neutrophils # Seg Neutrophils # Man Lymphocytes # (Manual) Monocytes # (Manual) PT APTT D-Dimer Heparin Anti-Xa Level ABG pH 7.481 H POC ABG pCO2 POC ABG pO2 80.0 L ABG pO2 ABG Hemoglobin 11.1 L ABG Oxyhemoglobin ABG Sodium 131.9 L ABG Potassium ABG Chloride ABG Glucose 231 H Carboxyhemoglobin 0.2 L Sodium 134 L Potassium Chloride 95.8 L Carbon Dioxide BUN 31 H Creatinine 0.5 L Glucose 168 H POC Glucose 230 H Lactic Acid Calcium Ferritin AST ALT Alkaline Phosphatase Lactate Dehydrogenase Troponin T Total Protein Albumin HDL Cholesterol Arterial Blood Glucose 231 H Arterial Blood Ionized Calcium Urine WBC (Auto) 06/02/21 06/02/21 06/02/21 11:27 17:47 23:53 WBC RBC Hgb Hct MCV MCH MCHC RDW [place] # (Auto) Seg Neutrophils % Seg Neuts % (Manual) Lymphocytes % (Manual) Monocytes % (Manual) Seg Neutrophils # Seg Neutrophils # Man Lymphocytes # (Manual) Monocytes # (Manual) PT APTT D-Dimer Heparin Anti-Xa Level 0.80 H ABG pH POC ABG pCO2 POC ABG pO2 ABG pO2 ABG Hemoglobin ABG Oxyhemoglobin ABG Sodium ABG Potassium ABG Chloride ABG Glucose Carboxyhemoglobin Sodium Potassium Chloride Carbon Dioxide BUN Creatinine Glucose POC Glucose 259 H 297 H Lactic Acid Calcium Ferritin AST ALT Alkaline Phosphatase Lactate Dehydrogenase Troponin T Total Protein Albumin HDL Cholesterol Arterial Blood Glucose Arterial Blood Ionized Calcium Urine WBC (Auto) 06/03/21 06/03/21 06/03/21 00:05 05:23 09:10 WBC RBC Hgb Hct MCV MCH MCHC RDW [place] # (Auto) Seg Neutrophils % Seg Neuts % (Manual) Lymphocytes % (Manual) Monocytes % (Manual) Seg Neutrophils # Seg Neutrophils # Man Lymphocytes # (Manual) Monocytes # (Manual) PT APTT D-Dimer Heparin Anti-Xa Level 0.84 H ABG pH POC ABG pCO2 POC ABG pO2 ABG pO2 ABG Hemoglobin ABG Oxyhemoglobin ABG Sodium ABG Potassium ABG Chloride ABG Glucose Carboxyhemoglobin Sodium Potassium Chloride Carbon Dioxide BUN Creatinine Glucose POC Glucose 268 H 170 H Lactic Acid Calcium Ferritin AST ALT Alkaline Phosphatase Lactate Dehydrogenase Troponin T Total Protein Albumin HDL Cholesterol Arterial Blood Glucose Arterial Blood Ionized Calcium Urine WBC (Auto) 06/03/21 06/03/21 06/03/21 12:06 20:22 23:30 WBC RBC Hgb Hct MCV MCH MCHC RDW [place] # (Auto) Seg Neutrophils % Seg Neuts % (Manual) Lymphocytes % (Manual) Monocytes % (Manual) Seg Neutrophils # Seg Neutrophils # Man Lymphocytes # (Manual) Monocytes # (Manual) PT APTT D-Dimer Heparin Anti-Xa Level ABG pH POC ABG pCO2 POC ABG pO2 ABG pO2 ABG Hemoglobin ABG Oxyhemoglobin ABG Sodium ABG Potassium ABG Chloride ABG Glucose Carboxyhemoglobin Sodium Potassium Chloride Carbon Dioxide BUN Creatinine Glucose POC Glucose 275 H 260 H 215 H Lactic Acid Calcium Ferritin AST ALT Alkaline Phosphatase Lactate Dehydrogenase Troponin T Total Protein Albumin HDL Cholesterol Arterial Blood Glucose Arterial Blood Ionized Calcium Urine WBC (Auto) 06/04/21 06/04/21 06/04/21 05:03 05:57 05:57 WBC 17.8 H RBC 2.83 L Hgb 9.6 L Hct 28.4 L MCV 100 H MCH 34 H MCHC RDW 15.5 H [place] # (Auto) Seg Neutrophils % Seg Neuts % (Manual) 83.0 H Lymphocytes % (Manual) 4.0 L Monocytes % (Manual) Seg Neutrophils # Seg Neutrophils # Man 14.8 H Lymphocytes # (Manual) 0.7 L Monocytes # (Manual) 1.1 H PT APTT D-Dimer Heparin Anti-Xa Level ABG pH POC ABG pCO2 POC ABG pO2 ABG pO2 ABG Hemoglobin ABG Oxyhemoglobin ABG Sodium ABG Potassium ABG Chloride ABG Glucose Carboxyhemoglobin Sodium 135 L Potassium Chloride 96.3 L Carbon Dioxide BUN 51 H Creatinine Glucose 275 H POC Glucose 257 H Lactic Acid Calcium Ferritin AST ALT Alkaline Phosphatase Lactate Dehydrogenase Troponin T Total Protein Albumin HDL Cholesterol Arterial Blood Glucose Arterial Blood Ionized Calcium Urine WBC (Auto) 06/04/21 06/04/21 06/04/21 09:48 11:08 17:33 WBC RBC Hgb Hct MCV MCH MCHC RDW [place] # (Auto) Seg Neutrophils % Seg Neuts % (Manual) Lymphocytes % (Manual) Monocytes % (Manual) Seg Neutrophils # Seg Neutrophils # Man Lymphocytes # (Manual) Monocytes # (Manual) PT APTT D-Dimer Heparin Anti-Xa Level ABG pH POC ABG pCO2 POC ABG pO2 ABG pO2 ABG Hemoglobin ABG Oxyhemoglobin ABG Sodium ABG Potassium ABG Chloride ABG Glucose Carboxyhemoglobin Sodium Potassium Chloride Carbon Dioxide BUN Creatinine Glucose POC Glucose 198 H 234 H 247 H Lactic Acid Calcium Ferritin AST ALT Alkaline Phosphatase Lactate Dehydrogenase Troponin T Total Protein Albumin HDL Cholesterol Arterial Blood Glucose Arterial Blood Ionized Calcium Urine WBC (Auto) 06/04/21 06/05/21 06/05/21 23:30 05:38 11:24 WBC RBC Hgb Hct MCV MCH MCHC RDW [place] # (Auto) Seg Neutrophils % Seg Neuts % (Manual) Lymphocytes % (Manual) Monocytes % (Manual) Seg Neutrophils # Seg Neutrophils # Man Lymphocytes # (Manual) Monocytes # (Manual) PT APTT D-Dimer Heparin Anti-Xa Level ABG pH POC ABG pCO2 POC ABG pO2 ABG pO2 ABG Hemoglobin ABG Oxyhemoglobin ABG Sodium ABG Potassium ABG Chloride ABG Glucose Carboxyhemoglobin Sodium Potassium Chloride Carbon Dioxide BUN Creatinine Glucose POC Glucose 192 H 192 H 287 H Lactic Acid Calcium Ferritin AST ALT Alkaline Phosphatase Lactate Dehydrogenase Troponin T Total Protein Albumin HDL Cholesterol Arterial Blood Glucose Arterial Blood Ionized Calcium Urine WBC (Auto) 06/05/21 06/05/21 06/05/21 12:20 12:20 12:20 WBC 16.2 H RBC 2.56 L Hgb 8.8 L Hct 25.2 L MCV 98 H MCH 35 H MCHC 35 H RDW 15.3 H [place] # (Auto) Seg Neutrophils % Seg Neuts % (Manual) Lymphocytes % (Manual) Monocytes % (Manual) Seg Neutrophils # Seg Neutrophils # Man Lymphocytes # (Manual) Monocytes # (Manual) PT APTT 72.2 H* D-Dimer Heparin Anti-Xa Level ABG pH POC ABG pCO2 POC ABG pO2 ABG pO2 ABG Hemoglobin ABG Oxyhemoglobin ABG Sodium ABG Potassium ABG Chloride ABG Glucose Carboxyhemoglobin Sodium 133 L Potassium Chloride 95.3 L Carbon Dioxide BUN 57 H Creatinine Glucose 313 H POC Glucose Lactic Acid Calcium Ferritin AST 90 H ALT 79 H Alkaline Phosphatase 262 H Lactate Dehydrogenase Troponin T Total Protein Albumin 2.7 L HDL Cholesterol Arterial Blood Glucose Arterial Blood Ionized Calcium Urine WBC (Auto) 06/05/21 06/05/21 06/05/21 17:50 22:57 23:36 WBC RBC Hgb Hct MCV MCH MCHC RDW [place] # (Auto) Seg Neutrophils % Seg Neuts % (Manual) Lymphocytes % (Manual) Monocytes % (Manual) Seg Neutrophils # Seg Neutrophils # Man Lymphocytes # (Manual) Monocytes # (Manual) PT APTT D-Dimer Heparin Anti-Xa Level 0.28 L ABG pH POC ABG pCO2 POC ABG pO2 ABG pO2 ABG Hemoglobin ABG Oxyhemoglobin ABG Sodium ABG Potassium ABG Chloride ABG Glucose Carboxyhemoglobin Sodium Potassium Chloride Carbon Dioxide BUN Creatinine Glucose POC Glucose 275 H 223 H Lactic Acid Calcium Ferritin AST ALT Alkaline Phosphatase Lactate Dehydrogenase Troponin T Total Protein Albumin HDL Cholesterol Arterial Blood Glucose Arterial Blood Ionized Calcium Urine WBC (Auto) 06/06/21 06/06/21 06/06/21 04:57 04:57 05:02 WBC 15.7 H RBC 2.77 L Hgb 9.4 L Hct 27.2 L MCV 98 H MCH 34 H MCHC RDW 15.4 H [place] # (Auto) Seg Neutrophils % Seg Neuts % (Manual) Lymphocytes % (Manual) Monocytes % (Manual) Seg Neutrophils # Seg Neutrophils # Man Lymphocytes # (Manual) Monocytes # (Manual) PT APTT D-Dimer Heparin Anti-Xa Level ABG pH POC ABG pCO2 POC ABG pO2 ABG pO2 ABG Hemoglobin ABG Oxyhemoglobin ABG Sodium ABG Potassium ABG Chloride ABG Glucose Carboxyhemoglobin Sodium Potassium 5.7 H Chloride Carbon Dioxide BUN 57 H Creatinine Glucose 245 H POC Glucose 217 H Lactic Acid Calcium Ferritin AST 99 H ALT 136 H Alkaline Phosphatase 312 H Lactate Dehydrogenase Troponin T Total Protein 6.1 L Albumin 3.1 L HDL Cholesterol Arterial Blood Glucose Arterial Blood Ionized Calcium Urine WBC (Auto) Chest x-ray: other (none today) Allied health notes reviewed: nursing
[2021-06-06] MEDS: INSULIN REGULAR, HUMAN 100 UNITS/1 ML SUB-Q SCH ×2 (11:43→18:01)
--- NOTE | 2021-06-06 13:14 | Progress Note ---
Assessment and Plan Respiratory failure chest CTA: no evidence of PE negative COVID serology Atrial fibrillation, transient pt is currently in sinus rhythm Sepsis Syncope Out of the hospital asystolic cardiopulmonary arrest Hypertension Chronic seizure disorder Diabetes Normal left ventricular systolic function by echo this admission. 05/2020 dobutamine thallium stress test showed normal perfusion study. 05/2020 echo showed normal left ventricular systolic function. Supportive cardiac management. Subjective Date of service: 06/06/21 Principal diagnosis: Ac hypoxemic resp failure; Cardiac arrest; Seizures; Sepsis; AMS; A-Fib RVR Interval history: Patient remains unresponsive on the vent. Currently, lunchroom monitor shows normal sinus rhythm. Objective Vital Signs Temp Pulse Pulse Pulse Resp BP Pulse Ox 06/06/21 12:07 77 24 134/54 100 06/06/21 11:47 98.6 F 06/06/21 09:04 80 139/47 06/06/21 09:03 80 139/47 06/06/21 08:00 79 18 98 06/06/21 07:36 83 19 170/79 100 06/06/21 07:33 86 170/79 100 06/06/21 07:15 80 15 150/57 99 06/06/21 07:00 97.7 F 85 20 162/63 99 06/06/21 06:45 81 15 162/55 100 06/06/21 06:30 80 15 147/52 99 06/06/21 06:15 78 16 150/52 99 06/06/21 06:00 80 15 163/58 100 06/06/21 05:45 81 16 147/51 91 06/06/21 05:30 82 18 143/51 90 06/06/21 05:15 79 18 146/51 90 06/06/21 05:00 78 17 135/47 90 06/06/21 04:45 75 20 146/48 97 06/06/21 04:30 80 13 146/54 100 06/06/21 04:15 78 17 158/54 100 06/06/21 04:00 75 79 13 132/48 99 06/06/21 03:45 79 16 157/54 99 06/06/21 03:31 98.4 F 06/06/21 03:30 75 15 147/55 98 06/06/21 03:15 73 13 131/50 99 06/06/21 03:00 77 14 142/52 99 06/06/21 02:45 74 13 137/49 99 06/06/21 02:30 77 15 138/55 99 06/06/21 02:15 75 12 140/52 99 06/06/21 02:00 76 14 138/56 99 06/06/21 01:45 73 13 141/53 99 06/06/21 01:30 75 13 139/53 99 06/06/21 01:15 78 15 141/54 99 06/06/21 01:00 76 15 152/66 99 06/06/21 00:45 77 13 147/69 99 06/06/21 00:30 79 15 146/69 100 06/06/21 00:15 76 13 153/67 98 06/06/21 00:00 78 77 13 141/63 99 06/05/21 23:51 98.1 F 06/05/21 23:45 78 12 136/61 99 06/05/21 23:30 78 12 138/61 98 06/05/21 23:15 76 15 152/63 98 06/05/21 23:14 77 162/54 100 06/05/21 23:00 78 12 142/61 97 06/05/21 22:45 77 14 137/58 98 06/05/21 22:30 79 16 140/66 98 06/05/21 22:15 77 15 146/66 99 06/05/21 22:00 78 14 135/68 100 06/05/21 21:45 80 15 159/62 99 06/05/21 21:30 84 14 154/66 99 06/05/21 21:22 85 163/67 06/05/21 21:20 85 163/67 06/05/21 21:19 85 163/67 06/05/21 21:15 84 14 163/67 99 06/05/21 21:00 84 14 159/67 99 06/05/21 20:45 83 16 169/75 99 06/05/21 20:30 83 15 173/68 99 06/05/21 20:15 81 17 166/68 98 06/05/21 20:00 98.3 F 79 79 16 178/73 98 06/05/21 19:49 79 154/64 100 06/05/21 19:45 82 14 154/64 98 06/05/21 19:30 80 14 147/63 99 06/05/21 19:15 83 14 154/61 98 06/05/21 19:00 82 13 142/59 99 06/05/21 18:45 82 13 144/59 99 06/05/21 18:30 81 14 139/60 99 06/05/21 18:28 81 12 158/66 100 06/05/21 18:15 85 16 158/66 99 06/05/21 18:00 84 18 160/69 99 06/05/21 17:45 81 14 152/63 99 06/05/21 17:30 82 16 156/67 99 06/05/21 17:15 81 16 159/64 99 06/05/21 17:07 81 161/67 100 06/05/21 17:00 79 22 161/67 98 06/05/21 16:45 80 23 161/68 98 06/05/21 16:30 80 23 160/69 99 06/05/21 16:15 79 16 159/65 99 06/05/21 16:00 97.5 F L 78 75 77 17 156/67 99 06/05/21 15:45 78 17 159/62 98 06/05/21 15:30 77 15 157/66 98 06/05/21 15:15 78 15 153/66 98 06/05/21 15:00 77 15 149/63 98 06/05/21 14:45 80 19 143/67 98 06/05/21 14:30 78 15 152/61 98 06/05/21 14:15 77 15 152/65 98 06/05/21 14:00 77 14 153/67 98 06/05/21 13:45 74 14 156/68 97 06/05/21 13:30 75 14 150/65 98 06/05/21 13:15 75 22 146/71 98 - Physical Examination General: Other (Unresponsive, on the vent) Cardiac: Positive: Reg Rate and Rhythm - Labs and Meds Cardiac Enzymes 06/06/21 Range/Units 04:57 AST 99 H (5-40) units/L Coagulation 06/05/21 Range/Units 12:20 APTT 72.2 H* (24.2-36.6) Sec. CBC 06/06/21 Range/Units 04:57 WBC 15.7 H (4.5-11.0) K/mm3 RBC 2.77 L (3.65-5.03) M/mm3 Hgb 9.4 L (10.1-14.3) gm/dl Hct 27.2 L (30.3-42.9) % Plt Count 323 (140-440) K/mm3 Comprehensive Metabolic Panel 06/06/21 Range/Units 04:57 Sodium 139 (137-145) mmol/L Potassium 5.7 H (3.6-5.0) mmol/L Chloride 99.5 (98-107) mmol/L Carbon Dioxide 29 (22-30) mmol/L BUN 57 H (7-17) mg/dL Creatinine 0.8 (0.6-1.2) mg/dL Glucose 245 H (65-100) mg/dL Calcium 8.6 (8.4-10.2) mg/dL AST 99 H (5-40) units/L ALT 136 H (7-56) units/L Alkaline Phosphatase 312 H (35-129) units/L Total Protein 6.1 L (6.3-8.2) g/dL Albumin 3.1 L (3.9-5) g/dL - Allied health notes Allied health notes reviewed: nursing
[2021-06-06] MEDS: hydrALAZINE 25 MG TAB PO SCH ×2 (15:32→22:35)
[2021-06-06 18:39] LABS: Blood Urea Nitrogen 48 mg/dL (7-17); Calcium 8.5 mg/dL (8.4-10.2); Hemolysis Index 44
[2021-06-06 18:44] LABS: BUN/Creatinine Ratio 80
[2021-06-07] MEDS: INSULIN LISPRO 100 UNIT/ML SUB-Q SCH ×5 (00:20→23:59)
[2021-06-07] MEDS: INSULIN REGULAR, HUMAN 100 UNITS/1 ML SUB-Q SCH ×3 (00:20→12:14)
[2021-06-07] MEDS: hydrALAZINE 25 MG TAB PO SCH ×4 (02:25→21:26)
[2021-06-07] MEDS: METOCLOPRAMIDE 10 MG/2 ML INJ IV SCH ×2 (02:26→03:09)
[2021-06-07] MEDS: HEPARIN/ 0.45% NACL DRIP 25,000 UNIT/500 ML BAG IV SCH ×2 (03:48→23:59)
[2021-06-07 05:08] LABS: Hematocrit 26.9 % (30.3-42.9); Mean Corpuscular HGB Conc 33 % (30-34); Mean Corpuscular Volume 99 fl (79-97); Red Blood Count 2.71 M/mm3 (3.65-5.03); Red Cell Distribution Width 15.3 % (13.2-15.2)
[2021-06-07 05:11] LABS: Platelet Count 264 K/mm3 (140-440)
[2021-06-07 05:31] LABS: BUN/Creatinine Ratio 69; Blood Urea Nitrogen 55 mg/dL (7-17); Calcium 8.6 mg/dL (8.4-10.2); Hemolysis Index 81
--- NOTE | 2021-06-07 06:18 | XRay Report ---
CHEST 1 VIEW INDICATION / CLINICAL INFORMATION: F/U patient is intubated STUDY TIME: 445 COMPARISON: 05/29/2021 FINDINGS: SUPPORT DEVICES: Stable HEART / MEDIASTINUM: Stable LUNGS / PLEURA: Perihilar infiltrate continues. Mild atelectatic changes are again seen. No pneumotho rax. ADDITIONAL FINDINGS: No significant additional findings. Signer Name: Wolfgang Cao MD Signed: 06/07/2021 6:13 AM Workstation Name: [id number]
[2021-06-07] MEDS: GLYCOPYRROLATE 2 MG TAB PO SCH ×3 (08:24→21:40)
[2021-06-07] MEDS ORDERED: SODIUM POLYSTYRENE 15 GM/60 ML ORAL LIQD PO NR (10:00)
[2021-06-07] MEDS: POLYETHYLENE GLYCOL 3350 17 GM POWDER PO SCH (10:34)
[2021-06-07] MEDS: levETIRAcetam 500 MG/5 ML ORAL LIQD FEEDTUBE SCH ×2 (10:35→21:24)
[2021-06-07] MEDS: SENNOSIDES/DOCUSATE SODIUM 8.6/50 MG TAB FEEDTUBE SCH ×2 (10:36→21:28)
[2021-06-07] MEDS: VALSARTAN 160MG TAB PO SCH ×2 (10:37→21:33)
[2021-06-07] MEDS: FAMOTIDINE 20 MG TAB FEEDTUBE SCH ×2 (10:37→21:26)
[2021-06-07] MEDS: DOXAZOSIN 1 MG TAB PO SCH ×2 (10:38→21:25)
[2021-06-07] MEDS: INSULIN GLARGINE 100 UNITS/ML SUB-Q SCH (10:49)
--- NOTE | 2021-06-07 12:10 | Progress Note ---
<TOBIAS QUIROS - Last Filed: 06/07/21 16:21> Assessment and Plan Assessment and plan: 65-year-old female with PmHx of nonepileptic spells, PTSD, closed head injury, hypertension, diabetes, CAD, who came in s/p cardiac arrest Hospital Course to Date: 06/05/21- Patient remains ETT and on vent support. Off sedation with some improvement in neuro status, but is not following commands. Patient is tolerating SBT trial this am, still on the heparin gtt. AM labs is pending. Patient is still hyperglycemic, increased Qhs lantus. Continue supportive care. 06/06/21- Patient is intubated and on the vent. No longer on sedation, awake but unresponsive, tolerating SBT. Hyperglycemia this am, X1 dose of kayaxalate orderd. Persistent hyperglycemia, insulin adjusted. Continue to monitor elec trolytes, repeat BMP this afternoon and am labs ordered. 06/07/21- Patient remains intubated and on the vent. Neuro status is unchanged, spontaneously open yes but is not following commands. SBT trial again, plan to place back on a rate overnight. Leukocytosis noted from this morning lab, stat procalc and CRP ordered, d/w CCM no abx at this time. K 5.4 today, kayalalxate given. Continue to monitor leukocytosis and electrolytes. 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 - Per Neuro 05/29 EEG no sign of seizures - Patient is off sedation, open eyes spontaneously, pupils reactive, with +gag and cough. - Not following commands, no movement to stimuli - Continue Keppra and PRN ativan for seizure - Continue Supportive care #CV: s/p Cardiac Arrest #AFIB with RVR- resolved #Hypertension - Remains SR on the monitor - Normotensive - Continue antihypertensives: Labetalol, Hydralazine, valsartan, & Doxazosin - PRN hydralazine for SBP> 160 - Continue AC- Heparin gtt per protocol - Cardio is following #Resp.: Acute Hypoxemic Respitaroy Failure s/p cardiac Arrest #Bilateral Lower Lobe Infiltrates- improved - 05/25 ETT- Vent setting: SBT: 30%, 04/20 - 05/29 CXR- improved lung aeration - Patient is tolerating breathing trial, continue daily SBT - ABG per [facility] - F/U CXR in the am - Continue supplemental O2 for SPO2 goal>90% - D/w [facility] rec Trach and PEG-Family at bedside [facility] discussed plan with family - [facility] spoke with Patient's son- family not ready for trach at this time - Case management for LTACH placement #GI: Abdominal distention possibly due to Constipation #Vomitting- resolved - last documented BM 06/01 - 06/03 KUB showed no sign. abnormality - Bowel Regimen- senokot, Miralax added - TF at goal - Continue PPI- peccaitlin reglan #: Hyperkalemia - 06/06 K 5.7; X1 dose of kayexalate via NGT - Purewick in placed - Net -681ml in last 24hrs - Continue strict I&Os - Continue to monitor renal function, am labs ordered #ID: Leukocytosis #Sepsis- resolved #Bilateral Lower Lobe Infiltrates- improved - 05/25 Bcultx2-neg; 05/25 Tracheal aspirate-neg; 05/25 Urine cult- neg - 05/29 CXR- improved lung aeration - WBCs trending down; 06/06 Wbcs 15.7 06/07 Wbcs 21.5 - CRP and procal pending - Afebrile TMAX 99.6, not on pressors - d/w [facility] no abx at this time. - Continue to monitor- AM labs ordered #Endo: Hyperglycemia; H/o DM - Remains hyperglycemic - On high dose SSI Q6hrs and Lantus - added 5units humilin R- Will reassess in the am #DVT prophylaxis - SCDs to bilateral lower extremities while in bed - Continue AC- heparin gtt The high probability of a clinically significant, sudden or life threatening deterioration of the [neuro, Pulmo, Endo] system(s) required my full and direct attention, intervention and personal management. The aggregate critical care time was [60] minutes. This time is in addition to time spent performing reported procedures but includes the following: [x] Data Review and interpretation [x] Patient assessment and monitoring of vital signs [x] Documentation [x] Medication orders and management I saw and evaluated the patient. Discussed with the nurse practitioner and agree with their findings and plan as documented in this note. Disposition Plan: ICU Total Time Spent with Patient (Minutes): 60 History Interval history: Patient seen and examined at the bedside. Remains on vent, tolerating SBT trial. Awake and opening eyes spontaneously. No significant events overnight Hospitalist Physical - Constitutional Vitals: Temp Pulse Resp BP Pulse Ox 99.2 F 81 14 167/69 96 06/07/21 07:17 06/07/21 11:15 06/07/21 11:15 06/07/21 11:15 06/07/21 11:15 General appearance: Present: no acute distress - Respiratory Respiratory effort: normal Respiratory: bilateral: diminished - Cardiovascular Rhythm: regular Heart Sounds: Present: S1 & S2 - Extremities Extremities: pulses intact, pulses symmetrical Extremity abnormal: edema - Peripheral Assessment Generalized Edema Type: Non-pitting Edema Degree: 1+ Capillary Refill: < 3 seconds Skin Temperature: Warm Peripheral Pulses: within normal limits - Abdominal General gastrointestinal: soft, non-tender, normal bowel sounds - Integumentary Integumentary: Present: warm, dry - Neurologic Neurologic: focal deficits - Allied Health Allied health notes reviewed: nursing HEART Score - HEART Score Troponin: Troponin T 0.226 ng/mL (0.00-0.029) H* D 05/25/21 15:19 Results - Labs CBC & Chem 7: 06/07/21 04:45 06/07/21 04:45 Labs: Laboratory Last Values WBC 21.5 K/mm3 (4.5-11.0) H 06/07/21 04:45 RBC 2.71 M/mm3 (3.65-5.03) L 06/07/21 04:45 Hgb 9.0 gm/dl (10.1-14.3) L 06/07/21 04:45 Hct 26.9 % (30.3-42.9) L 06/07/21 04:45 MCV 99 fl (79-97) H 06/07/21 04:45 MCH 33 pg (28-32) H 06/07/21 04:45 MCHC 33 % (30-34) 06/07/21 04:45 RDW 15.3 % (13.2-15.2) H 06/07/21 04:45 Plt Count 264 K/mm3 (140-440) 06/07/21 04:45 Lymph % (Auto) 14.3 % (13.4-35.0) 05/28/21 04:00 Barren % (Auto) 6.9 % (0.0-7.3) 05/28/21 04:00 Eos % (Auto) 0.1 % (0.0-4.3) 05/28/21 04:00 Baso % (Auto) 0.5 % (0.0-1.8) 05/28/21 04:00 Lymph # (Auto) 1.9 K/mm3 (1.2-5.4) 05/28/21 04:00 Barren # (Auto) 0.9 K/mm3 (0.0-0.8) H 05/28/21 04:00 Eos # (Auto) 0.0 K/mm3 (0.0-0.4) 05/28/21 04:00 Baso # (Auto) 0.1 K/mm3 (0.0-0.1) 05/28/21 04:00 Add Manual Diff Complete 06/04/21 05:57 Total Counted 100 06/04/21 05:57 Seg Neutrophils % 78.2 % (40.0-70.0) H 05/28/21 04:00 Seg Neuts % (Manual) 83.0 % (40.0-70.0) H 06/04/21 05:57 Band Neutrophils % 4.0 % 06/04/21 05:57 Lymphocytes % (Manual) 4.0 % (13.4-35.0) L 06/04/21 05:57 Monocytes % (Manual) 6.0 % (0.0-7.3) 06/04/21 05:57 Eosinophils % (Manual) 2.0 % (0.0-4.3) 06/04/21 05:57 Metamyelocytes % 1.0 % 05/25/21 09: Myelocytes % 1.0 % 06/04/21 05:57 Nucleated RBC % Not Reportable 06/04/21 05:57 Seg Neutrophils # 10.6 K/mm3 (1.8-7.7) H 05/28/21 04:00 Seg Neutrophils # Man 14.8 K/mm3 (1.8-7.7) H 06/04/21 05:57 Band Neutrophils # 0.7 K/mm3 06/04/21 05:57 Lymphocytes # (Manual) 0.7 K/mm3 (1.2-5.4) L 06/04/21 05:57 Abs React Lymphs (Man) 0.0 K/mm3 06/04/21 05:57 Monocytes # (Manual) 1.1 K/mm3 (0.0-0.8) H 06/04/21 05:57 Eosinophils # (Manual) 0.4 K/mm3 (0.0-0.4) 06/04/21 05:57 Basophils # (Manual) 0.0 K/mm3 (0.0-0.1) 06/04/21 05:57 Metamyelocytes # 0.0 K/mm3 06/04/21 05:57 Myelocytes # 0.2 K/mm3 06/04/21 05:57 Promyelocytes # 0.0 K/mm3 06/04/21 05:57 Blast Cells # 0.0 K/mm3 06/04/21 05:57 WBC Morphology Not Reportable 06/04/21 05:57 Hypersegmented Neuts Not Reportable 06/04/21 05:57 Hyposegmented Neuts Not Reportable 06/04/21 05:57 Hypogranular Neuts Not Reportable 06/04/21 05:57 Smudge Cells Not Reportable 06/04/21 05:57 Toxic Granulation Not Reportable 06/04/21 05:57 Toxic Vacuolation Not Reportable 06/04/21 05:57 Dohle Bodies Not Reportable 06/04/21 05:57 Pelger-Huet Anomaly Not Reportable 06/04/21 05:57 Peter Rods Not Reportable 06/04/21 05:57 Platelet Estimate Consistent w auto 06/04/21 05:57 Clumped Platelets Not Reportable 06/04/21 05:57 Plt Clumps, EDTA Not Reportable 06/04/21 05:57 Large Platelets Not Reportable 06/04/21 05:57 Giant Platelets Not Reportable 06/04/21 05:57 Platelet Satelliting Not Reportable 06/04/21 05:57 Plt Morphology Comment Not Reportable 06/04/21 05:57 RBC Morphology Normal 06/04/21 05:57 Dimorphic RBCs Not Reportable 06/04/21 05:57 Polychromasia Not Reportable 06/04/21 05:57 Hypochromasia Not Reportable 06/04/21 05:57 Poikilocytosis Not Reportable 06/04/21 05:57 Anisocytosis Not Reportable 06/04/21 05:57 Microcytosis Not Reportable 06/04/21 05:57 Macrocytosis Not Reportable 06/04/21 05:57 Spherocytes Not Reportable 06/04/21 05:57 Pappenheimer Bodies Not Reportable 06/04/21 05:57 Sickle Cells Not Reportable 06/04/21 05:57 Target Cells Not Reportable 06/04/21 05:57 Tear Drop Cells Not Reportable 06/04/21 05:57 Ovalocytes Not Reportable 06/04/21 05:57 Helmet Cells Not Reportable 06/04/21 05:57 Toribio-Pluckemin Bodies Not Reportable 06/04/21 05:57 [place] Rings Not Reportable 06/04/21 05:57 Lin Cells Not Reportable 06/04/21 05:57 Bite Cells Not Reportable 06/04/21 05:57 Crenated Cell Not Reportable 06/04/21 05:57 Elliptocytes Not Reportable 06/04/21 05:57 Acanthocytes (Spur) Not Reportable 06/04/21 05:57 Rouleaux Not Reportable 06/04/21 05:57 Hemoglobin C Crystals Not Reportable 06/04/21 05:57 Schistocytes Not Reportable 06/04/21 05:57 Malaria parasites Not Reportable 06/04/21 05:57 Shravan Bodies Not Reportable 06/04/21 05:57 Hem Pathologist Commnt No 06/04/21 05:57 PT 15.0 Sec. (12.2-14.9) H 05/25/21 09:21 INR 1.13 (0.87-1.13) 05/25/21 09:21 APTT 72.2 Sec. (24.2-36.6) H* 06/05/21 12:20 D-Dimer > 43082 ng/mlDDU (0-234) H 05/25/21 09:21 Heparin Anti-Xa Level 0.10 U.I./ml (0.3-0.7) L 06/07/21 04:45 ABG pH 7.481 (7.320-7.450) H 06/02/21 04:13 POC ABG pCO2 36.9 mmHg (32.0-48.0) 06/02/21 04:13 ABG pCO2 30.3 mm Hg 05/29/21 05:28 POC ABG pO2 80.0 mmHg (83-108) L 06/02/21 04:13 ABG pO2 96.2 mm Hg (80.0-90.0) H 05/29/21 05:28 POC ABG HCO3 26.9 06/02/21 04:13 ABG HCO3 24.0 mmol/L (20.0-26.0) 05/29/21 05:28 ABG O2 Saturation 95.7 (0-100) 06/02/21 04:13 ABG O2 Content 10.3 (0.0-44) 05/29/21 05:28 POC ABG Base Excess 3.4 06/02/21 04:13 ABG Base Excess 1.2 mmol/L (-2.0-3.0) 05/29/21 05:28 ABG Hemoglobin 11.1 (12.0-17.5) L 06/02/21 04:13 ABG Oxyhemoglobin 95.2 (94-98) 06/02/21 04:13 ABG Carboxyhemoglobin 1.6 % (0.0-5.0) 05/29/21 05:28 ABG Methemoglobin 0.3 (0.0-1.5) 06/02/21 04:13 ABG Sodium 131.9 mmol/L (136.0-145.0) L 06/02/21 04:13 ABG Potassium 3.8 mmol/L (3.40-4.50) 06/02/21 04:13 ABG Chloride 98.0 mmol/L (98-107) 06/02/21 04:13 ABG Glucose 231 mg/dL (65-95) H 06/02/21 04:13 Oxyhemoglobin 96.0 % (95.0-99.0) 05/29/21 05:28 Carboxyhemoglobin 0.2 (0.5-1.5) L 06/02/21 04:13 FiO2 30 % 05/29/21 05:28 FiO2 % 30.0 06/02/21 04:13 Sodium 138 mmol/L (137-145) 06/07/21 04:45 Potassium 5.4 mmol/L (3.6-5.0) H 06/07/21 04:45 Chloride 99.8 mmol/L (98-107) 06/07/21 04:45 Carbon Dioxide 27 mmol/L (22-30) 06/07/21 04:45 Anion Gap 17 mmol/L 06/07/21 04:45 BUN 55 mg/dL (7-17) H 06/07/21 04:45 Creatinine 0.8 mg/dL (0.6-1.2) 06/07/21 04:45 Estimated GFR > 60 ml/min 06/07/21 04:45 BUN/Creatinine Ratio 69 % 06/07/21 04:45 Glucose 178 mg/dL (65-100) H 06/07/21 04:45 POC Glucose 156 mg/dL (70-105) H 06/07/21 05:11 Lactic Acid 2.30 mmol/L (0.7-2.0) H* 05/26/21 05:49 Calcium 8.6 mg/dL (8.4-10.2) 06/07/21 04:45 Ferritin 321.6 ng/mL (10.0-200.0) H 05/25/21 09:21 Total Bilirubin 0.30 mg/dL (0.1-1.2) 06/06/21 04:57 Direct Bilirubin < 0.2 mg/dL (0-0.2) 05/25/21 09:21 Indirect Bilirubin 0.2 mg/dL 05/25/21 09:21 AST 99 units/L (5-40) H 06/06/21 04:57 ALT 136 units/L (7-56) H 06/06/21 04:57 Alkaline Phosphatase 312 units/L (35-129) H 06/06/21 04:57 Lactate Dehydrogenase 445 units/L (91-180) H 05/25/21 09:21 Troponin T 0.226 ng/mL (0.00-0.029) H* D 05/25/21 15:19 C-Reactive Protein 0.20 mg/dL (0.00-1.30) 05/25/21 09:21 NT-Pro-B Natriuret Pep 173.2 pg/mL (0-900) 05/25/21 09: Total Protein 6.1 g/dL (6.3-8.2) L 06/06/21 04:57 Albumin 3.1 g/dL (3.9-5) L 06/06/21 04:57 Albumin/Globulin Ratio 1.0 % 06/06/21 04:57 Triglycerides 124 mg/dL (2-149) 05/30/21 11:19 Cholesterol 198 mg/dL (50-199) 05/25/21 15:19 LDL Cholesterol Direct 80 mg/dL (50-130) 05/25/21 15:19 HDL Cholesterol 64 mg/dL (40-59) H 05/25/21 15:19 Cholesterol/HDL Ratio 3.09 % 05/25/21 15:19 Procalcitonin < 0.05 ng/mL (<0.15) 05/25/21 09: Arterial Blood Glucose 231 mg/dL (65-95) H 06/02/21 04:13 Arterial Blood Ionized Calcium 4.6 mg/dL (4.6-5.3) 06/02/21 04:13 Urine Color Straw (Yellow) 05/25/21 10:42 Urine Turbidity Clear (Clear) 05/25/21 10:42 Urine pH 6.0 (5.0-7.0) 05/25/21 10:42 Ur Specific [place] 1.007 (1.003-1.030) 05/25/21 10:42 Urine Protein 100 mg/dl mg/dL (Negative) 05/25/21 10:42 Urine Glucose (UA) >=500 mg/dL (Negative) 05/25/21 10:42 Urine Ketones Neg mg/dL (Negative) 05/25/21 10:42 Urine Blood Mod (Negative) 05/25/21 10:42 Urine Nitrite Neg (Negative) 05/25/21 10:42 Ur Reducing Substances Not Reportable 05/25/21 10:42 Urine Bilirubin Neg (Negative) 05/25/21 10:42 Urine Ictotest Not Reportable 05/25/21 10:42 Urine Urobilinogen < 2.0 mg/dL (<2.0) 05/25/21 10:42 Ur Leukocyte Esterase Neg (Negative) 05/25/21 10:42 Urine WBC (Auto) 11.0 /HPF (0.0-6.0) H 05/25/21 10:42 Urine RBC (Auto) 1.0 /HPF (0.0-6.0) 05/25/21 10:42 U Epithel Cells (Auto) < 1.0 /HPF (0-13.0) 05/25/21 10:42 Urine Bacteria (Auto) 4+ /HPF (Negative) 05/25/21 10:42 Urine Mucus Few /HPF 05/25/21 10:42 Coronavirus (PCR) Negative (Negative) 05/30/21 08:15 Blood Type O POSITIVE 05/25/21 14:07 Antibody Screen Negative 05/25/21 14:07 Tan/IV: Voiding Method External Female Catheter Active Medications - Current Medications Current Medications: Generic Name Dose Route Start Last Admin Trade Name Freq PRN Reason Stop Dose Admin Acetaminophen 650 mg 05/25/21 13:48 05/28/21 04:14 Acetaminophen 325 Mg Tab PO 650 mg Q6H PRN Administration Pain MILD(1-3)/Fever >100.5/SOTOMAYOR Lipase/Protease/Amylase 1 each 05/26/21 10:00 Lipase 10,500/Protease 25,000/Amylase 43,750 (Units) Dr Munguia FEEDTUBE PRN PRN For Clogged Feeding Tube Dextrose 50 ml 05/28/21 14:28 Dextrose 50% In Water (25gm) 50 Ml Syringe IV Q30MIN PRN Hypoglycemia Protocol Doxazosin Mesylate 2 mg 06/01/21 12:00 06/07/21 10:38 Doxazosin 1 Mg Tab PO 2 mg BID ABDIRAHMAN Administration Famotidine 20 mg 05/29/21 10:00 06/07/21 10:37 Famotidine 20 Mg Tab FEEDTUBE 20 mg BID ABDIRAHMAN Administration Glycopyrrolate 2 mg 06/01/21 09:00 06/07/21 08:24 Glycopyrrolate 2 Mg Tab PO 2 mg TID ABDIRAHMAN Administration Heparin Sodium (Porcine) 2,700 unit 05/25/21 13:41 05/30/21 17:46 Heparin 10,000 Units/10 Ml Vial 40 unit/kg (2700 unit) 2,520 unit IV Administration Q6H PRN Anti-Xa Assay < 0.1 units/ml Hydralazine HCl 10 mg 06/01/21 11:43 Hydralazine 20 Mg/1 Ml Inj IV Q4HR PRN SBP >160 Hydralazine HCl 50 mg 06/03/21 22:00 06/07/21 05:18 Hydralazine 25 Mg Tab PO 50 mg Q8HR ABDIRAHMAN Administration Hydrophilic Ointment 1 applic 05/25/21 19:04 Lip Therapy Vaseline TP Q2HR PRN Dry Lips NORepinephrine/NS 8 MG-250 ML 8 mg in 250 mls @ 3.75 mls/hr 05/25/21 09:30 Norepinephrine/Ns 8 Mg-250 Ml (Double Conc) IV TITRATE ABDIRAHMAN Protocol 2 MCG/MIN Heparin Sodium/Sodium Chloride 25,000 unit in 500 mls @ 20 mls/hr 05/25/21 15:00 06/07/21 07:09 Heparin/ 0.45% Nacl-25,000 Unit/500 Ml IV 1,200 units/hr TITRATE ABDIRAHMAN 24 mls/hr Titration Protocol 1,000 UNITS/HR Propofol 1,000 mg in 100 mls @ 1.89 mls/hr 06/03/21 05:00 06/04/21 07:39 Diprivan 10 Mg/Ml IV 0 mcg/kg/min TITR ABDIRAHMAN 0 mls/hr Titration Protocol 5 MCG/KG/MIN Insulin Glargine 20 units 06/05/21 10:00 06/07/21 10:49 Insulin Glargine 100 Units/Ml SUB-Q 20 units DAILY ABDIRAHMAN Administration Insulin Human Lispro 0 unit 05/29/21 12:00 06/07/21 05:58 Insulin Lispro 100 Unit/Ml SUB-Q 3 unit Q6HR ABDIRAHMAN Administration Protocol Insulin Human Regular 5 units 06/06/21 12:00 06/07/21 06:02 Insulin Regular, Human 100 Units/1 Ml SUB-Q 5 units Q6H ABDIRAHMAN Administration Labetalol HCl 300 mg 06/03/21 13:40 06/07/21 10:39 Labetalol 100 Mg Tab PO 300 mg BID ABDIRAHMAN Administration Levetiracetam 250 mg 06/01/21 22:00 06/07/21 10:35 Levetiracetam 500 Mg/5 Ml Oral Liqd FEEDTUBE 250 mg Q12HR ABDIRAHMAN Administration Lorazepam 2 mg 05/25/21 19:46 05/31/21 03:44 Lorazepam 2 Mg/Ml Vial IV 2 mg ONCE PRN Administration Seizure Multi-Ingred Cream/Lotion/Oil/Oint 1 applic 05/25/21 19:04 Mineral Oil/Petrolatum, White Ophth Oint 3.5 Gm OU Q4HR PRN Dry Eye(s) Polyethylene Glycol 17 gm 06/05/21 11:00 06/07/21 10:34 Polyethylene Glycol 3350 17 Gm Powder PO 17 gm QDAY ABDIRAHMAN Administration Senna/Docusate Sodium 1 tab 05/25/21 22:00 06/07/21 10:36 Sennosides/Docusate Sodium 8.6/50 Mg Tab FEEDTUBE 1 tab BID ABDIRAHMAN Administration Simple Syrup 15 ml 05/26/21 10:00 Simple Syrup 15 Ml FEEDTUBE PRN PRN Hypoglycemia Simple Syrup 30 ml 05/26/21 10:00 Simple Syrup 15 Ml FEEDTUBE PRN PRN Hypoglycemia Sodium Bicarbonate 325 mg 05/26/21 10:00 Sodium Bicarbonate 325 Mg Tab FEEDTUBE PRN PRN For Clogged Feeding Tube Sodium Chloride 10 ml 05/25/21 22:00 06/06/21 22:34 Sodium Chloride 0.9% 10 Ml Flush Syringe IV 10 ml BID ABDIRAHMAN Administration Sodium Chloride 10 ml 05/25/21 13:48 06/04/21 03:57 Sodium Chloride 0.9% 10 Ml Flush Syringe IV 10 ml PRN PRN Administration LINE FLUSH Sodium Polystyrene Sulfonate 30 gm 06/07/21 10:00 06/07/21 10:40 Sodium Polystyrene 15 Gm/60 Ml Oral Liqd PO 06/07/21 14:00 30 gm ONCE@1000 NR Administration Valsartan 160 mg 06/01/21 12:00 06/07/21 10:37 Valsartan 160mg Tab PO 160 mg BID ABDIRAHMAN Administration Nutrition/Malnutrition Assess - Dietary Evaluation Nutrition/Malnutrition Findings: Nutrition Notes Start: 05/26/21 09:00 Freq: Status: Active Protocol: Document 06/02/21 11:57 GB (Rec: 06/02/21 12:04 GB [id number]) Nutrition Notes Initial or Follow up Reassessment Current Diagnosis COPD,Diabetes,Sepsis, Hypertension,Respiratory Failure Other Pertinent Diagnosis cardiac arrest, seizure disorder Current Diet NPO, Tube feeding Labs/Tests 06/02: Na 134, BUN 31, Creatinine 0.5, glucose 168 Pertinent Medications NaCl, off sedation 06/01 Height 5 ft 4 in Weight 63 kg [place] Body Weight (kg) 54.54 BMI 23.8 Weight change and time frame 05/25: 67.585kg 05/31: 63 kg change: -4.585kg for -6.7% loss Weight Status Appropriate Subjective/Other Information Vent continues. Daily spontaneous breathing checks for weaning. TF continues. Percent of energy/protein needs met: TF meets 100% estimated energy needs. Burn Absent Trauma Absent GI Symptoms None Food Allergy No Current % PO Other Minimum of two criteria No #1 Nutrition Diagnosis Inadequate oral intake Comments: 06/02: On vent. TF continues. Etiology ARF As Evidenced by Signs and Symptoms pt on vent and unable to consume PO Diagnosis Progress(for reassessment Continues documentation) Is patient on ventilator? Yes Is Patient Ambulatory and/or Out of Bed No [facility] 1385.676 Kcal/Kg value to use for calculation 23 Approximate Energy Requirements Using 1449 kcal/Kg Calculation Used for Recommendations Kcal/kg Additional Notes Protein: (1-1.5g/kg @63kg) 63- 95g Fluid: 1 ml/kcal or per MD Nutrition Intervention Change Diet Order: Continue NPO Nutrition Support: Vital AF 1.2 at 50 ml/hr Flush 75 ml q4h 06/02: continues Kcal 1,440 Protein (gm) 90 Fat (gm) 65 Fluid (mL) 973 Goal #1 Meet 75% or greater of protein and energy needs via TF Follow-Up By: 06/07/21 Additional Comments Vent status <GABRIELLA VILLA - Last Filed: 06/08/21 07:28> Assessment and Plan Assessment and plan: I saw and evaluated the patient. I agree with the findings and the plan of care as documented in the Nurse Practitioner's~note, with the following corrections and additions. Hospitalist Physical - Constitutional Vitals: Temp Pulse Resp BP Pulse Ox 98.4 F 80 24 149/56 100 06/08/21 07:20 06/08/21 07:00 06/08/21 07:00 06/08/21 07:00 06/08/21 07:00 HEART Score - HEART Score Troponin: Troponin T 0.226 ng/mL (0.00-0.029) H* D 05/25/21 15:19 Results - Labs CBC & Chem 7: 06/08/21 04:25 06/08/21 04:25 Labs: Laboratory Last Values WBC 15.8 K/mm3 (4.5-11.0) H 06/08/21 04:25 RBC 2.58 M/mm3 (3.65-5.03) L 06/08/21 04:25 Hgb 8.6 gm/dl (10.1-14.3) L 06/08/21 04:25 Hct 25.7 % (30.3-42.9) L 06/08/21 04:25 MCV 100 fl (79-97) H 06/08/21 04:25 MCH 33 pg (28-32) H 06/08/21 04:25 MCHC 33 % (30-34) 06/08/21 04:25 RDW 15.2 % (13.2-15.2) 06/08/21 04:25 Plt Count 298 K/mm3 (140-440) 06/08/21 04:25 Lymph % (Auto) 14.3 % (13.4-35.0) 05/28/21 04:00 Barren % (Auto) 6.9 % (0.0-7.3) 05/28/21 04:00 Eos % (Auto) 0.1 % (0.0-4.3) 05/28/21 04:00 Baso % (Auto) 0.5 % (0.0-1.8) 05/28/21 04:00 Lymph # (Auto) 1.9 K/mm3 (1.2-5.4) 05/28/21 04:00 Barren # (Auto) 0.9 K/mm3 (0.0-0.8) H 05/28/21 04:00 Eos # (Auto) 0.0 K/mm3 (0.0-0.4) 05/28/21 04:00 Baso # (Auto) 0.1 K/mm3 (0.0-0.1) 05/28/21 04:00 Add Manual Diff Complete 06/08/21 04:25 Total Counted 100 06/08/21 04:25 Seg Neutrophils % 78.2 % (40.0-70.0) H 05/28/21 04:00 Seg Neuts % (Manual) 76.0 % (40.0-70.0) H 06/08/21 04:25 Band Neutrophils % 4.0 % 06/08/21 04:25 Lymphocytes % (Manual) 6.0 % (13.4-35.0) L 06/08/21 04:25 Monocytes % (Manual) 8.0 % (0.0-7.3) H 06/08/21 04:25 Eosinophils % (Manual) 1.0 % (0.0-4.3) 06/08/21 04:25 Metamyelocytes % 3.0 % 06/08/21 04:25 Myelocytes % 2.0 % 06/08/21 04:25 Nucleated RBC % Not Reportable 06/08/21 04:25 Seg Neutrophils # 10.6 K/mm3 (1.8-7.7) H 05/28/21 04:00 Seg Neutrophils # Man 12.0 K/mm3 (1.8-7.7) H 06/08/21 04:25 Band Neutrophils # 0.6 K/mm3 06/08/21 04:25 Lymphocytes # (Manual) 0.9 K/mm3 (1.2-5.4) L 06/08/21 04:25 Abs React Lymphs (Man) 0.0 K/mm3 06/08/21 04:25 Monocytes # (Manual) 1.3 K/mm3 (0.0-0.8) H 06/08/21 04:25 Eosinophils # (Manual) 0.2 K/mm3 (0.0-0.4) 06/08/21 04:25 Basophils # (Manual) 0.0 K/mm3 (0.0-0.1) 06/08/21 04:25 Metamyelocytes # 0.5 K/mm3 06/08/21 04:25 Myelocytes # 0.3 K/mm3 06/08/21 04:25 Promyelocytes # 0.0 K/mm3 06/08/21 04:25 Blast Cells # 0.0 K/mm3 06/08/21 04:25 WBC Morphology Not Reportable 06/08/21 04:25 Hypersegmented Neuts Not Reportable 06/08/21 04:25 Hyposegmented Neuts Not Reportable 06/08/21 04:25 Hypogranular Neuts Not Reportable 06/08/21 04:25 Smudge Cells Not Reportable 06/08/21 04:25 Toxic Granulation Not Reportable 06/08/21 04:25 Toxic Vacuolation Not Reportable 06/08/21 04:25 Dohle Bodies Not Reportable 06/08/21 04:25 Pelger-Huet Anomaly Not Reportable 06/08/21 04:25 Peter Rods Not Reportable 06/08/21 04:25 Platelet Estimate Consistent w auto 06/08/21 04:25 Clumped Platelets Not Reportable 06/08/21 04:25 Plt Clumps, EDTA Not Reportable 06/08/21 04:25 Large Platelets Not Reportable 06/08/21 04:25 Giant Platelets Not Reportable 06/08/21 04:25 Platelet Satelliting Not Reportable 06/08/21 04:25 Plt Morphology Comment Not Reportable 06/08/21 04:25 RBC Morphology Not Reportable 06/08/21 04:25 Dimorphic RBCs Not Reportable 06/08/21 04:25 Polychromasia Not Reportable 06/08/21 04:25 Hypochromasia Not Reportable 06/08/21 04:25 Poikilocytosis Not Reportable 06/08/21 04:25 Anisocytosis Not Reportable 06/08/21 04:25 Microcytosis Not Reportable 06/08/21 04:25 Macrocytosis Not Reportable 06/08/21 04:25 Spherocytes Not Reportable 06/08/21 04:25 Pappenheimer Bodies Not Reportable 06/08/21 04:25 Sickle Cells Not Reportable 06/08/21 04:25 Target Cells Not Reportable 06/08/21 04:25 Tear Drop Cells Not Reportable 06/08/21 04:25 Ovalocytes Not Reportable 06/08/21 04:25 Helmet Cells Not Reportable 06/08/21 04:25 Toribio-Pluckemin Bodies Not Reportable 06/08/21 04:25 [place] Rings Not Reportable 06/08/21 04:25 Lin Cells Not Reportable 06/08/21 04:25 Bite Cells Not Reportable 06/08/21 04:25 Crenated Cell Not Reportable 06/08/21 04:25 Elliptocytes Not Reportable 06/08/21 04:25 Acanthocytes (Spur) Not Reportable 06/08/21 04:25 Rouleaux Not Reportable 06/08/21 04:25 Hemoglobin C Crystals Not Reportable 06/08/21 04:25 Schistocytes Not Reportable 06/08/21 04:25 Malaria parasites Not Reportable 06/08/21 04:25 Shravan Bodies Not Reportable 06/08/21 04:25 Hem Pathologist Commnt No 06/08/21 04:25 PT 15.0 Sec. (12.2-14.9) H 05/25/21 09: INR 1.13 (0.87-1.13) 05/25/21 09: APTT 72.2 Sec. (24.2-36.6) H* 06/05/21 12:20 D-Dimer > 74155 ng/mlDDU (0-234) H 05/25/21 09: Heparin Anti-Xa Level 0.56 U.I./ml (0.3-0.7) 06/08/21 04:25 ABG pH 7.481 (7.320-7.450) H 06/02/21 04:13 POC ABG pCO2 36.9 mmHg (32.0-48.0) 06/02/21 04:13 ABG pCO2 30.3 mm Hg 05/29/21 05:28 POC ABG pO2 80.0 mmHg (83-108) L 06/02/21 04:13 ABG pO2 96.2 mm Hg (80.0-90.0) H 05/29/21 05:28 POC ABG HCO3 26.9 06/02/21 04:13 ABG HCO3 24.0 mmol/L (20.0-26.0) 05/29/21 05:28 ABG O2 Saturation 95.7 (0-100) 06/02/21 04:13 ABG O2 Content 10.3 (0.0-44) 05/29/21 05:28 POC ABG Base Excess 3.4 06/02/21 04:13 ABG Base Excess 1.2 mmol/L (-2.0-3.0) 05/29/21 05:28 ABG Hemoglobin 11.1 (12.0-17.5) L 06/02/21 04:13 ABG Oxyhemoglobin 95.2 (94-98) 06/02/21 04:13 ABG Carboxyhemoglobin 1.6 % (0.0-5.0) 05/29/21 05:28 ABG Methemoglobin 0.3 (0.0-1.5) 06/02/21 04:13 ABG Sodium 131.9 mmol/L (136.0-145.0) L 06/02/21 04:13 ABG Potassium 3.8 mmol/L (3.40-4.50) 06/02/21 04:13 ABG Chloride 98.0 mmol/L (98-107) 06/02/21 04:13 ABG Glucose 231 mg/dL (65-95) H 06/02/21 04:13 Oxyhemoglobin 96.0 % (95.0-99.0) 05/29/21 05:28 Carboxyhemoglobin 0.2 (0.5-1.5) L 06/02/21 04:13 FiO2 30 % 05/29/21 05:28 FiO2 % 30.0 06/02/21 04:13 Sodium 139 mmol/L (137-145) 06/08/21 04:25 Potassium 4.5 mmol/L (3.6-5.0) 06/08/21 04:25 Chloride 98.2 mmol/L (98-107) 06/08/21 04:25 Carbon Dioxide 30 mmol/L (22-30) 06/08/21 04:25 Anion Gap 15 mmol/L 06/08/21 04:25 BUN 65 mg/dL (7-17) H 06/08/21 04:25 Creatinine 1.1 mg/dL (0.6-1.2) 06/08/21 04:25 Estimated GFR 60 ml/min 06/08/21 04:25 BUN/Creatinine Ratio 59 % 06/08/21 04:25 Glucose 205 mg/dL (65-100) H 06/08/21 04:25 POC Glucose 185 mg/dL (70-105) H 06/08/21 05:36 Lactic Acid 2.30 mmol/L (0.7-2.0) H* 05/26/21 05:49 Calcium 8.5 mg/dL (8.4-10.2) 06/08/21 04:25 Ferritin 321.6 ng/mL (10.0-200.0) H 05/25/21 09:21 Total Bilirubin 0.30 mg/dL (0.1-1.2) 06/06/21 04:57 Direct Bilirubin < 0.2 mg/dL (0-0.2) 05/25/21 09:21 Indirect Bilirubin 0.2 mg/dL 05/25/21 09:21 AST 99 units/L (5-40) H 06/06/21 04:57 ALT 136 units/L (7-56) H 06/06/21 04:57 Alkaline Phosphatase 312 units/L (35-129) H 06/06/21 04:57 Lactate Dehydrogenase 445 units/L (91-180) H 05/25/21 09:21 Troponin T 0.226 ng/mL (0.00-0.029) H* D 05/25/21 15:19 C-Reactive Protein 28.90 mg/dL (0.00-1.30) H 06/07/21 14:52 NT-Pro-B Natriuret Pep 173.2 pg/mL (0-900) 05/25/21 09:21 Total Protein 6.1 g/dL (6.3-8.2) L 06/06/21 04:57 Albumin 3.1 g/dL (3.9-5) L 06/06/21 04:57 Albumin/Globulin Ratio 1.0 % 06/06/21 04:57 Triglycerides 124 mg/dL (2-149) 05/30/21 11:19 Cholesterol 198 mg/dL (50-199) 05/25/21 15:19 LDL Cholesterol Direct 80 mg/dL (50-130) 05/25/21 15:19 HDL Cholesterol 64 mg/dL (40-59) H 05/25/21 15:19 Cholesterol/HDL Ratio 3.09 % 05/25/21 15:19 Procalcitonin < 0.05 ng/mL (<0.15) 05/25/21 09:21 Arterial Blood Glucose 231 mg/dL (65-95) H 06/02/21 04:13 Arterial Blood Ionized Calcium 4.6 mg/dL (4.6-5.3) 06/02/21 04:13 Urine Color Straw (Yellow) 05/25/21 10:42 Urine Turbidity Clear (Clear) 05/25/21 10:42 Urine pH 6.0 (5.0-7.0) 05/25/21 10:42 Ur Specific [place] 1.007 (1.003-1.030) 05/25/21 10:42 Urine Protein 100 mg/dl mg/dL (Negative) 05/25/21 10:42 Urine Glucose (UA) >=500 mg/dL (Negative) 05/25/21 10:42 Urine Ketones Neg mg/dL (Negative) 05/25/21 10:42 Urine Blood Mod (Negative) 05/25/21 10:42 Urine Nitrite Neg (Negative) 05/25/21 10:42 Ur Reducing Substances Not Reportable 05/25/21 10:42 Urine Bilirubin Neg (Negative) 05/25/21 10:42 Urine Ictotest Not Reportable 05/25/21 10:42 Urine Urobilinogen < 2.0 mg/dL (<2.0) 05/25/21 10:42 Ur Leukocyte Esterase Neg (Negative) 05/25/21 10:42 Urine WBC (Auto) 11.0 /HPF (0.0-6.0) H 05/25/21 10:42 Urine RBC (Auto) 1.0 /HPF (0.0-6.0) 05/25/21 10:42 U Epithel Cells (Auto) < 1.0 /HPF (0-13.0) 05/25/21 10:42 Urine Bacteria (Auto) 4+ /HPF (Negative) 05/25/21 10:42 Urine Mucus Few /HPF 05/25/21 10:42 Coronavirus (PCR) Negative (Negative) 05/30/21 08:15 Blood Type O POSITIVE 05/25/21 14:07 Antibody Screen Negative 05/25/21 14:07 Tan/IV: Voiding Method External Female Catheter Active Medications - Current Medications Current Medications: Generic Name Dose Route Start Last Admin Trade Name Freq PRN Reason Stop Dose Admin Acetaminophen 650 mg 05/25/21 13:48 05/28/21 04:14 Acetaminophen 325 Mg Tab PO 650 mg Q6H PRN Administration Pain MILD(1-3)/Fever >100.5/SOTOMAYOR Lipase/Protease/Amylase 1 each 05/26/21 10:00 Lipase 10,500/Protease 25,000/Amylase 43,750 (Units) Cap FEEDTUBE PRN PRN For Clogged Feeding Tube Dextrose 50 ml 05/28/21 14:28 Dextrose 50% In Water (25gm) 50 Ml Syringe IV Q30MIN PRN Hypoglycemia Protocol Doxazosin Mesylate 2 mg 06/01/21 12:00 06/07/21 21:25 Doxazosin 1 Mg Tab PO 2 mg BID ABDIRAHMAN Administration Famotidine 20 mg 05/29/21 10:00 06/07/21 21:26 Famotidine 20 Mg Tab FEEDTUBE 20 mg BID ABDIRAHMAN Administration Glycopyrrolate 2 mg 06/01/21 09:00 06/07/21 21:40 Glycopyrrolate 2 Mg Tab PO 2 mg TID ABDIRAHMAN Administration Heparin Sodium (Porcine) 2,700 unit 05/25/21 13:41 05/30/21 17:46 Heparin 10,000 Units/10 Ml Vial 40 unit/kg (2700 unit) 2,520 unit IV Administration Q6H PRN Anti-Xa Assay < 0.1 units/ml Hydralazine HCl 10 mg 06/01/21 11:43 06/07/21 17:23 Hydralazine 20 Mg/1 Ml Inj IV 10 mg Q4HR PRN Administration SBP >160 Hydralazine HCl 50 mg 06/03/21 22:00 06/08/21 06:07 Hydralazine 25 Mg Tab PO 50 mg Q8HR ABDIRAHMAN Administration Hydrophilic Ointment 1 applic 05/25/21 19:04 Lip Therapy Vaseline TP Q2HR PRN Dry Lips Heparin Sodium/Sodium Chloride 25,000 unit in 500 mls @ 20 mls/hr 05/25/21 15:00 06/08/21 06:09 Heparin/ 0.45% Nacl-25,000 Unit/500 Ml IV 1,150 units/hr TITRATE ABDIRAHMAN 23 mls/hr Titration Protocol 1,000 UNITS/HR Insulin Glargine 20 units 06/05/21 10:00 06/07/21 10:49 Insulin Glargine 100 Units/Ml SUB-Q 20 units DAILY ABDIRAHMAN Administration Insulin Human Lispro 0 unit 05/29/21 12:00 06/08/21 06:05 Insulin Lispro 100 Unit/Ml SUB-Q 3 unit Q6HR ABDIRAHMAN Administration Protocol Labetalol HCl 300 mg 06/03/21 13:40 06/07/21 21:25 Labetalol 100 Mg Tab PO 300 mg BID ABDIRAHMAN Administration Levetiracetam 250 mg 06/01/21 22:00 06/07/21 21:24 Levetiracetam 500 Mg/5 Ml Oral Liqd FEEDTUBE 250 mg Q12HR ABDIRAHMAN Administration Lorazepam 2 mg 05/25/21 19:46 05/31/21 03:44 Lorazepam 2 Mg/Ml Vial IV 2 mg ONCE PRN Administration Seizure Multi-Ingred Cream/Lotion/Oil/Oint 1 applic 05/25/21 19:04 Mineral Oil/Petrolatum, White Ophth Oint 3.5 Gm OU Q4HR PRN Dry Eye(s) Polyethylene Glycol 17 gm 06/05/21 11:00 06/07/21 10:34 Polyethylene Glycol 3350 17 Gm Powder PO 17 gm QDAY ABDIRAHMAN Administration Senna/Docusate Sodium 1 tab 05/25/21 22:00 06/07/21 21:28 Sennosides/Docusate Sodium 8.6/50 Mg Tab FEEDTUBE 1 tab BID ABDIRAHMAN Administration Simple Syrup 15 ml 05/26/21 10:00 Simple Syrup 15 Ml FEEDTUBE PRN PRN Hypoglycemia Simple Syrup 30 ml 05/26/21 10:00 Simple Syrup 15 Ml FEEDTUBE PRN PRN Hypoglycemia Sodium Bicarbonate 325 mg 05/26/21 10:00 Sodium Bicarbonate 325 Mg Tab FEEDTUBE PRN PRN For Clogged Feeding Tube Sodium Chloride 10 ml 05/25/21 22:00 06/07/21 22:00 Sodium Chloride 0.9% 10 Ml Flush Syringe IV 10 ml BID ABDIRAHMAN Administration Sodium Chloride 10 ml 05/25/21 13:48 06/04/21 03:57 Sodium Chloride 0.9% 10 Ml Flush Syringe IV 10 ml PRN PRN Administration LINE FLUSH Valsartan 160 mg 06/01/21 12:00 06/07/21 21:33 Valsartan 160mg Tab PO 160 mg BID ABDIRAHMAN Administration Nutrition/Malnutrition Assess - Dietary Evaluation Nutrition/Malnutrition Findings: Nutrition Notes Start: 05/26/21 09:00 Freq: Status: Active Protocol: Document 06/07/21 12:09 GB (Rec: 06/07/21 12:24 GB [id number]) Nutrition Notes Initial or Follow up Reassessment Current Diagnosis COPD,Diabetes,Sepsis, Hypertension,Respiratory Failure Other Pertinent Diagnosis cardiac arrest, seizure disorder Current Diet NPO, Tube feeding Vital 1.2 @ 50 Labs/Tests 06/07: K 5.4, BUN 55, (glucose 178 -showing improvement) Pertinent Medications NaCl, Na Polystyrene Sulfaonate Height 5 ft 4 in Weight 63 kg [place] Body Weight (kg) 54.54 BMI 23.8 Weight change and time frame -6.6% since admission Weight Status Appropriate Subjective/Other Information Ventilation continues, TF continues, Son(s) approved to visit today Percent of energy/protein needs met: TF goal rate meets 75% or greater of estimated energy needs Burn Absent Trauma Absent GI Symptoms None Food Allergy No Current % PO Other Minimum of two criteria No #1 Nutrition Diagnosis Inadequate oral intake Comments: 06/02: On vent. TF continues. 06/07: Ventilation continues, TF continues. Etiology ARF As Evidenced by Signs and Symptoms pt on vent and unable to consume PO Diagnosis Progress(for reassessment Continues documentation) Is patient on ventilator? Yes Is Patient Ambulatory and/or Out of Bed No REE-([facility]-confined to bed) 1385.676 Kcal/Kg value to use for calculation 23 Approximate Energy Requirements Using 1449 kcal/Kg Calculation Used for Recommendations Kcal/kg Additional Notes Protein: (1-1.5g/kg @63kg) 63- 95g Fluid: 1 ml/kcal or per MD Nutrition Intervention Change Diet Order: Continue NPO Nutrition Support: Vital AF 1.2 at 50 ml/hr Flush 75 ml q4h 06/02: continues 06/07: continues Kcal 1,440 Protein (gm) 90 Fat (gm) 65 Fluid (mL) 973 Goal #1 Meet 75% or greater of protein and energy needs via TF Follow-Up By: 06/14/21 Additional Comments son(s) approved to visit mom today. Pt trach/PEG
--- NOTE | 2021-06-07 12:53 | Progress Note ---
Assessment and Plan Acute hypoxemic respiratory failure on MVS Cardiopulmonary arrest wtih ROSC Seizure disorder Sepsis Toxic metabolic encephalopathy, possible anoxia Atrial fibrillation with RVR Metabolic acidosis Bilateral lower lobe infiltrates - repeat CRP X Procalcitonin to aid clinical decision making - get stat CXR re: ? VAP - hold on empiric AB's till above reviewed - 2 sets of BC's for feevr > 101F - await families decision re: trach and PEG - continue care as below otherwise; - will likely need trach for safe liberation from MVS except there is significant improvement in mental status - continue scopolamine for secretion control - continue Keppra as AED - daily SAT and SBT assessment as tolerated - continue to wean supplemental oxygen for target O2 sat's > 90% acutely - VAP bundle addressed - continue lung protective strategies - continue bronchodilators with pulmonary hygiene per RT - wean per pulmonary driven protocols otherwise - continue accuchecks with glycemic control per SSI (While critically ill target blood glucose of 140-180 mg/dL; avoid hypoglycemia) - sedation prn for target RASS 0 to -1 - avoid nephrotoxins, renally dose all medications - continue to avoid benzodiazepine's, reduce the possibility of delirium - AB's per ID rec's - prn analgesia per CPOT score - Maintenance of sleep-wake cycle, avoid delirium - continue enteral nutritional support at goal rate as tolerated - G.I. & VTE prophylaxis - PT/OT/ROM exercises - continue mobility protocols for pressure ulcer prophylaxis - Monitor hemodynamics closely - continue other care per attending / other consultants - discharge planning ongoing concurrently COVID SPECIFIC INTERVENTIONS - COVID-19 PCR negative .... Re-evaluate in am & prn CONDITION: CRITICAL PROGNOSIS: GUARDED CODE STATUS: FULL CODE The high probability of a clinically significant, sudden or life-threatening deterioration of the [respiratory, cardiovascular & neurologic] system(s) required my full and direct attention, intervention and personal management. The aggregate critical care time was [36] minutes without overlap. Time includes spent on; [x] Data Review and interpretation [x] Patient assessment and monitoring of vital signs [x] Documentation [x] Medication orders and management Subjective Date of service: 06/07/21 Principal diagnosis: Ac hypoxemic resp failure; Cardiac arrest; Seizures; Sepsis; AMS; A-Fib RVR Interval history: Patient is seen today for: Acute hypoxemic respiratory failure; Cardiac arrest wtih ROSC; Seizure disorder; Sepsis; AMS; A-Fib with RVR Seen and examined at bedside; 24hour events reviewed; nursing and respiratory care staff consulted; no adverse overnight events reported to me; resting in bed; remains on MVS; WBC spiked to 21.5K; + mild hyperkalemia; AMS is persistent; tolerating SBT Objective Vital Signs - 12hr 06/07/21 06/07/21 06/07/21 01:00 01:15 01:30 Temperature Pulse Rate 80 83 82 Pulse Rate [ From Monitor] Respiratory 16 17 18 Rate Blood Pressure 150/59 160/60 152/61 O2 Sat by Pulse 95 93 94 Oximetry 06/07/21 06/07/21 06/07/21 01:45 02:00 02:15 Temperature Pulse Rate 79 81 84 Pulse Rate [ From Monitor] Respiratory 19 17 16 Rate Blood Pressure 164/68 152/56 163/57 O2 Sat by Pulse 95 94 95 Oximetry 06/07/21 06/07/21 06/07/21 02:30 02:45 03:00 Temperature Pulse Rate 87 86 82 Pulse Rate [ From Monitor] Respiratory 18 19 17 Rate Blood Pressure 152/61 166/63 142/49 O2 Sat by Pulse 94 94 96 Oximetry 06/07/21 06/07/21 06/07/21 03:15 03:30 03:45 Temperature Pulse Rate 79 86 84 Pulse Rate [ From Monitor] Respiratory 16 29 H Rate Blood Pressure 143/54 166/67 167/62 O2 Sat by Pulse 96 97 97 Oximetry 06/07/21 06/07/21 06/07/21 03:47 04:00 04:15 Temperature 99.4 F Pulse Rate 85 88 Pulse Rate [ 87 From Monitor] Respiratory 18 Rate Blood Pressure 152/61 166/62 O2 Sat by Pulse 97 97 Oximetry 06/07/21 06/07/21 06/07/21 04:30 04:34 04:45 Temperature Pulse Rate 83 82 87 Pulse Rate [ From Monitor] Respiratory Rate Blood Pressure 139/56 139/56 164/64 O2 Sat by Pulse 98 100 97 Oximetry 06/07/21 06/07/21 06/07/21 05:00 05:15 05:30 Temperature Pulse Rate 85 83 88 Pulse Rate [ From Monitor] Respiratory Rate Blood Pressure 146/56 140/51 160/66 O2 Sat by Pulse 97 98 97 Oximetry 06/07/21 06/07/21 06/07/21 05:45 06:00 06:15 Temperature Pulse Rate 88 87 86 Pulse Rate [ From Monitor] Respiratory Rate Blood Pressure 156/59 157/62 156/59 O2 Sat by Pulse 97 97 96 Oximetry 06/07/21 06/07/21 06/07/21 06:30 06:45 07:00 Temperature Pulse Rate 85 81 82 Pulse Rate [ From Monitor] Respiratory Rate Blood Pressure 148/53 150/57 142/54 O2 Sat by Pulse 97 97 97 Oximetry 06/07/21 06/07/21 06/07/21 07:15 07:17 07:30 Temperature 99.2 F Pulse Rate 85 85 Pulse Rate [ From Monitor] Respiratory Rate Blood Pressure 157/60 158/58 O2 Sat by Pulse 97 96 Oximetry 06/07/21 06/07/21 06/07/21 07:45 08:00 08:15 Temperature Pulse Rate 87 96 H 84 Pulse Rate [ 80 From Monitor] Respiratory 39 H 21 Rate Blood Pressure 155/58 167/61 163/63 O2 Sat by Pulse 97 98 98 Oximetry 06/07/21 06/07/21 06/07/21 08:30 08:45 09:00 Temperature Pulse Rate 86 82 84 Pulse Rate [ From Monitor] Respiratory 31 H 27 H 28 H Rate Blood Pressure 158/68 153/60 170/69 O2 Sat by Pulse 98 98 97 Oximetry 06/07/21 06/07/21 06/07/21 09:15 09:30 09:45 Temperature Pulse Rate 83 83 82 Pulse Rate [ From Monitor] Respiratory 15 16 14 Rate Blood Pressure 159/62 162/62 155/61 O2 Sat by Pulse 96 97 97 Oximetry 06/07/21 06/07/21 06/07/21 10:00 10:15 10:30 Temperature Pulse Rate 84 82 82 Pulse Rate [ From Monitor] Respiratory 15 14 14 Rate Blood Pressure 145/64 127/67 127/67 O2 Sat by Pulse 98 98 Oximetry 06/07/21 06/07/21 06/07/21 10:37 10:38 10:39 Temperature Pulse Rate 82 81 83 Pulse Rate [ From Monitor] Respiratory Rate Blood Pressure 165/65 165/65 165/65 O2 Sat by Pulse Oximetry 06/07/21 06/07/21 06/07/21 10:45 11:00 11:15 Temperature Pulse Rate 82 83 81 Pulse Rate [ From Monitor] Respiratory 13 13 14 Rate Blood Pressure 161/63 162/66 167/69 O2 Sat by Pulse 98 97 96 Oximetry 06/07/21 11:59 Temperature 97.5 F L Pulse Rate Pulse Rate [ From Monitor] Respiratory Rate Blood Pressure O2 Sat by Pulse Oximetry Constitutional: no acute distress, other (elderly female with mildly increased respiratory effort at rest on MVS) Eyes: non-icteric ENT: oropharynx moist, oropharyngeal exudate pre (clear), other (ETT at 23cm CHAPIN; + old bite muhammad on tongue with some macroglossia) Neck: supple, no lymphadenopathy Effort: mildly labored Ascultation: Bilateral: diminished breath sounds, rhonchi Percussion: Bilateral: not dull Cardiovascular: irregular rhythm, other (S1,S2) Gastrointestinal: normoactive bowel sounds, soft, non-tender, non-distended (protuberant) Integumentary: normal Extremities: no cyanosis, pulses normal, no ischemia or petechiae, other (Right femoral CVL) Neurologic: pupils equal and round, other (encephalopathic) Psychiatric: other (unable to assess) CBC and BMP: 06/08/21 04:25 06/08/21 04:25 ABG, PT/INR, D-dimer: ABG ABG pH 7.481 (7.320-7.450) H 06/02/21 04:13 POC ABG pCO2 36.9 mmHg (32.0-48.0) 06/02/21 04:13 ABG pCO2 30.3 mm Hg 05/29/21 05:28 POC ABG pO2 80.0 mmHg (83-108) L 06/02/21 04:13 ABG pO2 96.2 mm Hg (80.0-90.0) H 05/29/21 05:28 POC ABG HCO3 26.9 06/02/21 04:13 ABG O2 Saturation 95.7 (0-100) 06/02/21 04:13 PT/INR, D-dimer PT 15.0 Sec. (12.2-14.9) H 05/25/21 09:21 INR 1.13 (0.87-1.13) 05/25/21 09:21 D-Dimer > 02436 ng/mlDDU (0-234) H 05/25/21 09:21 Abnormal lab findings: Abnormal Labs 05/25/21 05/25/21 05/25/21 09:07 09:21 09:21 WBC 17.1 H RBC Hgb Hct MCV 106 H MCH 33 H MCHC RDW 15.6 H Graves # (Auto) Seg Neutrophils % Seg Neuts % (Manual) Lymphocytes % (Manual) Monocytes % (Manual) Seg Neutrophils # Seg Neutrophils # Man 10.1 H Lymphocytes # (Manual) 5.6 H Monocytes # (Manual) PT 15.0 H APTT 44.3 H D-Dimer > 22920 H Heparin Anti-Xa Level ABG pH 7.116 L POC ABG pCO2 POC ABG pO2 ABG pO2 ABG Hemoglobin ABG Oxyhemoglobin 93.7 L ABG Sodium ABG Potassium ABG Chloride ABG Glucose 395 H Carboxyhemoglobin Sodium Potassium Chloride Carbon Dioxide BUN Creatinine Glucose POC Glucose Lactic Acid Calcium Ferritin AST ALT Alkaline Phosphatase Lactate Dehydrogenase Troponin T Total Protein Albumin HDL Cholesterol Arterial Blood Glucose 395 H Arterial Blood Ionized Calcium 4.4 L Urine WBC (Auto) 05/25/21 05/25/21 05/25/21 09:21 09:21 09:21 WBC RBC Hgb Hct MCV MCH MCHC RDW Graves # (Auto) Seg Neutrophils % Seg Neuts % (Manual) Lymphocytes % (Manual) Monocytes % (Manual) Seg Neutrophils # Seg Neutrophils # Man Lymphocytes # (Manual) Monocytes # (Manual) PT APTT D-Dimer Heparin Anti-Xa Level ABG pH POC ABG pCO2 POC ABG pO2 ABG pO2 ABG Hemoglobin ABG Oxyhemoglobin ABG Sodium ABG Potassium ABG Chloride ABG Glucose Carboxyhemoglobin Sodium Potassium Chloride Carbon Dioxide 10 L BUN Creatinine Glucose 423 H 424 H POC Glucose Lactic Acid Calcium 8.2 L Ferritin 321.6 H AST 162 H ALT 119 H Alkaline Phosphatase Lactate Dehydrogenase 445 H Troponin T Total Protein 5.6 L Albumin 3.2 L HDL Cholesterol Arterial Blood Glucose Arterial Blood Ionized Calcium Urine WBC (Auto) 05/25/21 05/25/21 05/25/21 09:35 10:42 11:12 WBC RBC Hgb Hct MCV MCH MCHC RDW Graves # (Auto) Seg Neutrophils % Seg Neuts % (Manual) Lymphocytes % (Manual) Monocytes % (Manual) Seg Neutrophils # Seg Neutrophils # Man Lymphocytes # (Manual) Monocytes # (Manual) PT APTT D-Dimer Heparin Anti-Xa Level ABG pH POC ABG pCO2 POC ABG pO2 ABG pO2 ABG Hemoglobin ABG Oxyhemoglobin ABG Sodium ABG Potassium ABG Chloride ABG Glucose Carboxyhemoglobin Sodium Potassium Chloride Carbon Dioxide BUN Creatinine Glucose POC Glucose Lactic Acid 16.70 H* 7.70 H* Calcium Ferritin AST ALT Alkaline Phosphatase Lactate Dehydrogenase Troponin T Total Protein Albumin HDL Cholesterol Arterial Blood Glucose Arterial Blood Ionized Calcium Urine WBC (Auto) 11.0 H 05/25/21 05/25/21 05/25/21 14:07 15:19 19:04 WBC RBC Hgb Hct MCV MCH MCHC RDW Graves # (Auto) Seg Neutrophils % Seg Neuts % (Manual) Lymphocytes % (Manual) Monocytes % (Manual) Seg Neutrophils # Seg Neutrophils # Man Lymphocytes # (Manual) Monocytes # (Manual) PT APTT D-Dimer Heparin Anti-Xa Level ABG pH POC ABG pCO2 POC ABG pO2 172.2 H ABG pO2 ABG Hemoglobin ABG Oxyhemoglobin 98.7 H ABG Sodium 135.7 L ABG Potassium ABG Chloride ABG Glucose 255 H Carboxyhemoglobin 0.3 L Sodium Potassium Chloride Carbon Dioxide BUN Creatinine Glucose POC Glucose Lactic Acid 3.90 H* Calcium Ferritin AST ALT Alkaline Phosphatase Lactate Dehydrogenase Troponin T 0.226 H* D Total Protein Albumin HDL Cholesterol 64 H Arterial Blood Glucose 255 H Arterial Blood Ionized Calcium 3.8 L Urine WBC (Auto) 05/25/21 05/25/21 05/26/21 21:16 21:16 04:00 WBC RBC Hgb Hct MCV MCH MCHC RDW Graves # (Auto) Seg Neutrophils % Seg Neuts % (Manual) Lymphocytes % (Manual) Monocytes % (Manual) Seg Neutrophils # Seg Neutrophils # Man Lymphocytes # (Manual) Monocytes # (Manual) PT APTT D-Dimer Heparin Anti-Xa Level 1.19 H ABG pH 7.547 H POC ABG pCO2 POC ABG pO2 ABG pO2 ABG Hemoglobin 11.9 L ABG Oxyhemoglobin ABG Sodium 133.2 L ABG Potassium 3.1 L ABG Chloride ABG Glucose 243 H Carboxyhemoglobin 0.3 L Sodium Potassium Chloride Carbon Dioxide BUN Creatinine Glucose POC Glucose Lactic Acid 2.50 H* Calcium Ferritin AST ALT Alkaline Phosphatase Lactate Dehydrogenase Troponin T Total Protein Albumin HDL Cholesterol Arterial Blood Glucose 243 H Arterial Blood Ionized Calcium Urine WBC (Auto) 05/26/21 05/26/21 05/26/21 05:49 05:49 17:33 WBC RBC Hgb Hct MCV MCH MCHC RDW Graves # (Auto) Seg Neutrophils % Seg Neuts % (Manual) Lymphocytes % (Manual) Monocytes % (Manual) Seg Neutrophils # Seg Neutrophils # Man Lymphocytes # (Manual) Monocytes # (Manual) PT APTT D-Dimer Heparin Anti-Xa Level ABG pH POC ABG pCO2 POC ABG pO2 ABG pO2 ABG Hemoglobin ABG Oxyhemoglobin ABG Sodium ABG Potassium ABG Chloride ABG Glucose Carboxyhemoglobin Sodium Potassium Chloride Carbon Dioxide BUN Creatinine Glucose 226 H POC Glucose 156 H Lactic Acid 2.30 H* Calcium 7.2 L Ferritin AST 111 H ALT 97 H Alkaline Phosphatase Lactate Dehydrogenase Troponin T Total Protein 5.4 L Albumin 3.3 L HDL Cholesterol Arterial Blood Glucose Arterial Blood Ionized Calcium Urine WBC (Auto) 05/27/21 05/27/21 05/27/21 02:11 02:11 02:11 WBC 14.3 H RBC 3.27 L Hgb Hct MCV 99 H MCH 33 H MCHC RDW 15.3 H Graves # (Auto) 1.0 H Seg Neutrophils % Seg Neuts % (Manual) Lymphocytes % (Manual) Monocytes % (Manual) Seg Neutrophils # 10.0 H Seg Neutrophils # Man Lymphocytes # (Manual) Monocytes # (Manual) PT APTT D-Dimer Heparin Anti-Xa Level 0.80 H ABG pH POC ABG pCO2 POC ABG pO2 ABG pO2 ABG Hemoglobin ABG Oxyhemoglobin ABG Sodium ABG Potassium ABG Chloride ABG Glucose Carboxyhemoglobin Sodium Potassium 2.9 L* D Chloride Carbon Dioxide 31 H BUN 6 L Creatinine Glucose 215 H POC Glucose Lactic Acid Calcium 8.1 L Ferritin AST ALT Alkaline Phosphatase Lactate Dehydrogenase Troponin T Total Protein Albumin HDL Cholesterol Arterial Blood Glucose Arterial Blood Ionized Calcium Urine WBC (Auto) 05/27/21 05/27/21 05/27/21 11:24 12:49 18:06 WBC RBC Hgb Hct MCV MCH MCHC RDW Graves # (Auto) Seg Neutrophils % Seg Neuts % (Manual) Lymphocytes % (Manual) Monocytes % (Manual) Seg Neutrophils # Seg Neutrophils # Man Lymphocytes # (Manual) Monocytes # (Manual) PT APTT D-Dimer Heparin Anti-Xa Level ABG pH POC ABG pCO2 POC ABG pO2 ABG pO2 ABG Hemoglobin ABG Oxyhemoglobin ABG Sodium ABG Potassium ABG Chloride ABG Glucose Carboxyhemoglobin Sodium Potassium Chloride Carbon Dioxide BUN Creatinine Glucose POC Glucose 151 H 165 H 137 H Lactic Acid Calcium Ferritin AST ALT Alkaline Phosphatase Lactate Dehydrogenase Troponin T Total Protein Albumin HDL Cholesterol Arterial Blood Glucose Arterial Blood Ionized Calcium Urine WBC (Auto) 05/28/21 05/28/21 05/28/21 04:00 04:00 06:02 WBC 13.5 H RBC 3.05 L Hgb Hct MCV 100 H MCH 34 H MCHC RDW Graves # (Auto) 0.9 H Seg Neutrophils % 78.2 H Seg Neuts % (Manual) Lymphocytes % (Manual) Monocytes % (Manual) Seg Neutrophils # 10.6 H Seg Neutrophils # Man Lymphocytes # (Manual) Monocytes # (Manual) PT APTT D-Dimer Heparin Anti-Xa Level ABG pH 7.507 H POC ABG pCO2 POC ABG pO2 ABG pO2 ABG Hemoglobin 10.6 L ABG Oxyhemoglobin ABG Sodium 129.4 L ABG Potassium ABG Chloride ABG Glucose 243 H Carboxyhemoglobin 0.2 L Sodium 136 L D Potassium Chloride Carbon Dioxide BUN Creatinine Glucose 215 H POC Glucose Lactic Acid Calcium Ferritin AST ALT Alkaline Phosphatase Lactate Dehydrogenase Troponin T Total Protein Albumin HDL Cholesterol Arterial Blood Glucose 243 H Arterial Blood Ionized Calcium 4.1 L Urine WBC (Auto) 05/28/21 05/28/21 05/29/21 11:27 23:02 04:30 WBC RBC Hgb 9.3 L Hct 26.7 L MCV MCH MCHC RDW Graves # (Auto) Seg Neutrophils % Seg Neuts % (Manual) Lymphocytes % (Manual) Monocytes % (Manual) Seg Neutrophils # Seg Neutrophils # Man Lymphocytes # (Manual) Monocytes # (Manual) PT APTT D-Dimer Heparin Anti-Xa Level ABG pH POC ABG pCO2 POC ABG pO2 ABG pO2 ABG Hemoglobin ABG Oxyhemoglobin ABG Sodium ABG Potassium ABG Chloride ABG Glucose Carboxyhemoglobin Sodium Potassium Chloride Carbon Dioxide BUN Creatinine Glucose POC Glucose 220 H 212 H Lactic Acid Calcium Ferritin AST ALT Alkaline Phosphatase Lactate Dehydrogenase Troponin T Total Protein Albumin HDL Cholesterol Arterial Blood Glucose Arterial Blood Ionized Calcium Urine WBC (Auto) 05/29/21 05/29/21 05/29/21 05:02 05:28 12:55 WBC RBC Hgb Hct MCV MCH MCHC RDW Graves # (Auto) Seg Neutrophils % Seg Neuts % (Manual) Lymphocytes % (Manual) Monocytes % (Manual) Seg Neutrophils # Seg Neutrophils # Man Lymphocytes # (Manual) Monocytes # (Manual) PT APTT D-Dimer Heparin Anti-Xa Level ABG pH 7.516 H POC ABG pCO2 POC ABG pO2 ABG pO2 96.2 H ABG Hemoglobin 7.5 L ABG Oxyhemoglobin ABG Sodium ABG Potassium ABG Chloride ABG Glucose Carboxyhemoglobin Sodium Potassium Chloride Carbon Dioxide BUN Creatinine Glucose POC Glucose 197 H 251 H Lactic Acid Calcium Ferritin AST ALT Alkaline Phosphatase Lactate Dehydrogenase Troponin T Total Protein Albumin HDL Cholesterol Arterial Blood Glucose Arterial Blood Ionized Calcium Urine WBC (Auto) 05/29/21 05/29/21 05/30/21 18:23 23:31 04:10 WBC RBC Hgb Hct MCV MCH MCHC RDW Graves # (Auto) Seg Neutrophils % Seg Neuts % (Manual) Lymphocytes % (Manual) Monocytes % (Manual) Seg Neutrophils # Seg Neutrophils # Man Lymphocytes # (Manual) Monocytes # (Manual) PT APTT D-Dimer Heparin Anti-Xa Level ABG pH 7.532 H POC ABG pCO2 30.0 L POC ABG pO2 78.5 L ABG pO2 ABG Hemoglobin 11.3 L ABG Oxyhemoglobin ABG Sodium 126.7 L ABG Potassium ABG Chloride 94.0 L ABG Glucose 270 H Carboxyhemoglobin 0.4 L Sodium Potassium Chloride Carbon Dioxide BUN Creatinine Glucose POC Glucose 236 H 252 H Lactic Acid Calcium Ferritin AST ALT Alkaline Phosphatase Lactate Dehydrogenase Troponin T Total Protein Albumin HDL Cholesterol Arterial Blood Glucose 270 H Arterial Blood Ionized Calcium 4.4 L Urine WBC (Auto) 05/30/21 05/30/21 05/30/21 05:06 06:23 11:15 WBC RBC Hgb Hct MCV MCH MCHC RDW Graves # (Auto) Seg Neutrophils % Seg Neuts % (Manual) Lymphocytes % (Manual) Monocytes % (Manual) Seg Neutrophils # Seg Neutrophils # Man Lymphocytes # (Manual) Monocytes # (Manual) PT APTT D-Dimer Heparin Anti-Xa Level ABG pH POC ABG pCO2 POC ABG pO2 ABG pO2 ABG Hemoglobin ABG Oxyhemoglobin ABG Sodium ABG Potassium ABG Chloride ABG Glucose Carboxyhemoglobin Sodium 126 L D Potassium Chloride 91.9 L Carbon Dioxide 20 L D BUN Creatinine 0.4 L Glucose 274 H POC Glucose 242 H 346 H Lactic Acid Calcium Ferritin AST ALT Alkaline Phosphatase Lactate Dehydrogenase Troponin T Total Protein Albumin HDL Cholesterol Arterial Blood Glucose Arterial Blood Ionized Calcium Urine WBC (Auto) 05/30/21 05/30/21 05/30/21 11:19 11:19 11:19 WBC 18.9 H RBC 3.36 L Hgb Hct MCV 102 H MCH 33 H MCHC RDW 15.5 H Graves # (Auto) Seg Neutrophils % Seg Neuts % (Manual) Lymphocytes % (Manual) Monocytes % (Manual) Seg Neutrophils # Seg Neutrophils # Man Lymphocytes # (Manual) Monocytes # (Manual) PT APTT D-Dimer Heparin Anti-Xa Level < 0.10 L ABG pH POC ABG pCO2 POC ABG pO2 ABG pO2 ABG Hemoglobin ABG Oxyhemoglobin ABG Sodium ABG Potassium ABG Chloride ABG Glucose Carboxyhemoglobin Sodium 124 L Potassium Chloride Carbon Dioxide BUN Creatinine Glucose POC Glucose Lactic Acid Calcium Ferritin AST ALT Alkaline Phosphatase Lactate Dehydrogenase Troponin T Total Protein Albumin HDL Cholesterol Arterial Blood Glucose Arterial Blood Ionized Calcium Urine WBC (Auto) 05/30/21 05/30/21 05/31/21 17:02 23:27 03:37 WBC RBC Hgb Hct MCV MCH MCHC RDW Graves # (Auto) Seg Neutrophils % Seg Neuts % (Manual) Lymphocytes % (Manual) Monocytes % (Manual) Seg Neutrophils # Seg Neutrophils # Man Lymphocytes # (Manual) Monocytes # (Manual) PT APTT D-Dimer Heparin Anti-Xa Level ABG pH POC ABG pCO2 POC ABG pO2 ABG pO2 ABG Hemoglobin 11.6 L ABG Oxyhemoglobin ABG Sodium 130.0 L ABG Potassium ABG Chloride 95.0 L ABG Glucose 292 H Carboxyhemoglobin Sodium Potassium Chloride Carbon Dioxide BUN Creatinine Glucose POC Glucose 270 H 237 H Lactic Acid Calcium Ferritin AST ALT Alkaline Phosphatase Lactate Dehydrogenase Troponin T Total Protein Albumin HDL Cholesterol Arterial Blood Glucose 292 H Arterial Blood Ionized Calcium Urine WBC (Auto) 05/31/21 05/31/21 05/31/21 04:00 04:00 05:20 WBC 20.9 H RBC 3.13 L Hgb Hct MCV 99 H MCH 34 H MCHC RDW Graves # (Auto) Seg Neutrophils % Seg Neuts % (Manual) 81.0 H Lymphocytes % (Manual) 8.0 L Monocytes % (Manual) 9.0 H Seg Neutrophils # Seg Neutrophils # Man 16.9 H Lymphocytes # (Manual) Monocytes # (Manual) 1.9 H PT APTT D-Dimer Heparin Anti-Xa Level ABG pH POC ABG pCO2 POC ABG pO2 ABG pO2 ABG Hemoglobin ABG Oxyhemoglobin ABG Sodium ABG Potassium ABG Chloride ABG Glucose Carboxyhemoglobin Sodium 133 L D Potassium Chloride 95.4 L Carbon Dioxide 21 L BUN 30 H Creatinine 0.5 L Glucose 305 H POC Glucose 269 H Lactic Acid Calcium Ferritin AST ALT Alkaline Phosphatase Lactate Dehydrogenase Troponin T Total Protein Albumin HDL Cholesterol Arterial Blood Glucose Arterial Blood Ionized Calcium Urine WBC (Auto) 05/31/21 05/31/21 05/31/21 11:40 18:16 23:25 WBC RBC Hgb Hct MCV MCH MCHC RDW Graves # (Auto) Seg Neutrophils % Seg Neuts % (Manual) Lymphocytes % (Manual) Monocytes % (Manual) Seg Neutrophils # Seg Neutrophils # Man Lymphocytes # (Manual) Monocytes # (Manual) PT APTT D-Dimer Heparin Anti-Xa Level ABG pH POC ABG pCO2 POC ABG pO2 ABG pO2 ABG Hemoglobin ABG Oxyhemoglobin ABG Sodium ABG Potassium ABG Chloride ABG Glucose Carboxyhemoglobin Sodium Potassium Chloride Carbon Dioxide BUN Creatinine Glucose POC Glucose 364 H 250 H 231 H Lactic Acid Calcium Ferritin AST ALT Alkaline Phosphatase Lactate Dehydrogenase Troponin T Total Protein Albumin HDL Cholesterol Arterial Blood Glucose Arterial Blood Ionized Calcium Urine WBC (Auto) 06/01/21 06/01/21 06/01/21 04:03 04:58 04:58 WBC 20.7 H RBC 3.20 L Hgb Hct MCV 99 H MCH 34 H MCHC RDW Graves # (Auto) Seg Neutrophils % Seg Neuts % (Manual) 82.0 H Lymphocytes % (Manual) 9.0 L Monocytes % (Manual) Seg Neutrophils # Seg Neutrophils # Man 17.0 H Lymphocytes # (Manual) Monocytes # (Manual) 1.4 H PT APTT D-Dimer Heparin Anti-Xa Level 1.18 H ABG pH 7.520 H POC ABG pCO2 POC ABG pO2 66.0 L ABG pO2 ABG Hemoglobin ABG Oxyhemoglobin 92.5 L ABG Sodium 133.6 L ABG Potassium ABG Chloride ABG Glucose 250 H Carboxyhemoglobin Sodium Potassium Chloride Carbon Dioxide BUN Creatinine Glucose POC Glucose Lactic Acid Calcium Ferritin AST ALT Alkaline Phosphatase Lactate Dehydrogenase Troponin T Total Protein Albumin HDL Cholesterol Arterial Blood Glucose 250 H Arterial Blood Ionized Calcium 4.4 L Urine WBC (Auto) 06/01/21 06/01/21 06/01/21 04:58 05:29 11:39 WBC RBC Hgb Hct MCV MCH MCHC RDW Graves # (Auto) Seg Neutrophils % Seg Neuts % (Manual) Lymphocytes % (Manual) Monocytes % (Manual) Seg Neutrophils # Seg Neutrophils # Man Lymphocytes # (Manual) Monocytes # (Manual) PT APTT D-Dimer Heparin Anti-Xa Level ABG pH POC ABG pCO2 POC ABG pO2 ABG pO2 ABG Hemoglobin ABG Oxyhemoglobin ABG Sodium ABG Potassium ABG Chloride ABG Glucose Carboxyhemoglobin Sodium 131 L Potassium Chloride 95.7 L Carbon Dioxide BUN 30 H Creatinine 0.5 L Glucose 241 H POC Glucose 215 H 299 H Lactic Acid Calcium Ferritin AST ALT Alkaline Phosphatase Lactate Dehydrogenase Troponin T Total Protein Albumin HDL Cholesterol Arterial Blood Glucose Arterial Blood Ionized Calcium Urine WBC (Auto) 06/01/21 06/02/21 06/02/21 18:14 00:12 02:25 WBC 17.4 H RBC 3.09 L Hgb Hct MCV 101 H MCH 34 H MCHC RDW 15.5 H Graves # (Auto) Seg Neutrophils % Seg Neuts % (Manual) Lymphocytes % (Manual) Monocytes % (Manual) Seg Neutrophils # Seg Neutrophils # Man Lymphocytes # (Manual) Monocytes # (Manual) PT APTT D-Dimer Heparin Anti-Xa Level ABG pH POC ABG pCO2 POC ABG pO2 ABG pO2 ABG Hemoglobin ABG Oxyhemoglobin ABG Sodium ABG Potassium ABG Chloride ABG Glucose Carboxyhemoglobin Sodium Potassium Chloride Carbon Dioxide BUN Creatinine Glucose POC Glucose 215 H 175 H Lactic Acid Calcium Ferritin AST ALT Alkaline Phosphatase Lactate Dehydrogenase Troponin T Total Protein Albumin HDL Cholesterol Arterial Blood Glucose Arterial Blood Ionized Calcium Urine WBC (Auto) 06/02/21 06/02/21 06/02/21 02:25 04:13 04:58 WBC RBC Hgb Hct MCV MCH MCHC RDW Graves # (Auto) Seg Neutrophils % Seg Neuts % (Manual) Lymphocytes % (Manual) Monocytes % (Manual) Seg Neutrophils # Seg Neutrophils # Man Lymphocytes # (Manual) Monocytes # (Manual) PT APTT D-Dimer Heparin Anti-Xa Level ABG pH 7.481 H POC ABG pCO2 POC ABG pO2 80.0 L ABG pO2 ABG Hemoglobin 11.1 L ABG Oxyhemoglobin ABG Sodium 131.9 L ABG Potassium ABG Chloride ABG Glucose 231 H Carboxyhemoglobin 0.2 L Sodium 134 L Potassium Chloride 95.8 L Carbon Dioxide BUN 31 H Creatinine 0.5 L Glucose 168 H POC Glucose 230 H Lactic Acid Calcium Ferritin AST ALT Alkaline Phosphatase Lactate Dehydrogenase Troponin T Total Protein Albumin HDL Cholesterol Arterial Blood Glucose 231 H Arterial Blood Ionized Calcium Urine WBC (Auto) 06/02/21 06/02/21 06/02/21 11:27 17:47 23:53 WBC RBC Hgb Hct MCV MCH MCHC RDW Graves # (Auto) Seg Neutrophils % Seg Neuts % (Manual) Lymphocytes % (Manual) Monocytes % (Manual) Seg Neutrophils # Seg Neutrophils # Man Lymphocytes # (Manual) Monocytes # (Manual) PT APTT D-Dimer Heparin Anti-Xa Level 0.80 H ABG pH POC ABG pCO2 POC ABG pO2 ABG pO2 ABG Hemoglobin ABG Oxyhemoglobin ABG Sodium ABG Potassium ABG Chloride ABG Glucose Carboxyhemoglobin Sodium Potassium Chloride Carbon Dioxide BUN Creatinine Glucose POC Glucose 259 H 297 H Lactic Acid Calcium Ferritin AST ALT Alkaline Phosphatase Lactate Dehydrogenase Troponin T Total Protein Albumin HDL Cholesterol Arterial Blood Glucose Arterial Blood Ionized Calcium Urine WBC (Auto) 06/03/21 06/03/21 06/03/21 00:05 05:23 09:10 WBC RBC Hgb Hct MCV MCH MCHC RDW Graves # (Auto) Seg Neutrophils % Seg Neuts % (Manual) Lymphocytes % (Manual) Monocytes % (Manual) Seg Neutrophils # Seg Neutrophils # Man Lymphocytes # (Manual) Monocytes # (Manual) PT APTT D-Dimer Heparin Anti-Xa Level 0.84 H ABG pH POC ABG pCO2 POC ABG pO2 ABG pO2 ABG Hemoglobin ABG Oxyhemoglobin ABG Sodium ABG Potassium ABG Chloride ABG Glucose Carboxyhemoglobin Sodium Potassium Chloride Carbon Dioxide BUN Creatinine Glucose POC Glucose 268 H 170 H Lactic Acid Calcium Ferritin AST ALT Alkaline Phosphatase Lactate Dehydrogenase Troponin T Total Protein Albumin HDL Cholesterol Arterial Blood Glucose Arterial Blood Ionized Calcium Urine WBC (Auto) 06/03/21 06/03/21 06/03/21 12:06 20:22 23:30 WBC RBC Hgb Hct MCV MCH MCHC RDW Graves # (Auto) Seg Neutrophils % Seg Neuts % (Manual) Lymphocytes % (Manual) Monocytes % (Manual) Seg Neutrophils # Seg Neutrophils # Man Lymphocytes # (Manual) Monocytes # (Manual) PT APTT D-Dimer Heparin Anti-Xa Level ABG pH POC ABG pCO2 POC ABG pO2 ABG pO2 ABG Hemoglobin ABG Oxyhemoglobin ABG Sodium ABG Potassium ABG Chloride ABG Glucose Carboxyhemoglobin Sodium Potassium Chloride Carbon Dioxide BUN Creatinine Glucose POC Glucose 275 H 260 H 215 H Lactic Acid Calcium Ferritin AST ALT Alkaline Phosphatase Lactate Dehydrogenase Troponin T Total Protein Albumin HDL Cholesterol Arterial Blood Glucose Arterial Blood Ionized Calcium Urine WBC (Auto) 06/04/21 06/04/21 06/04/21 05:03 05:57 05:57 WBC 17.8 H RBC 2.83 L Hgb 9.6 L Hct 28.4 L MCV 100 H MCH 34 H MCHC RDW 15.5 H Graves # (Auto) Seg Neutrophils % Seg Neuts % (Manual) 83.0 H Lymphocytes % (Manual) 4.0 L Monocytes % (Manual) Seg Neutrophils # Seg Neutrophils # Man 14.8 H Lymphocytes # (Manual) 0.7 L Monocytes # (Manual) 1.1 H PT APTT D-Dimer Heparin Anti-Xa Level ABG pH POC ABG pCO2 POC ABG pO2 ABG pO2 ABG Hemoglobin ABG Oxyhemoglobin ABG Sodium ABG Potassium ABG Chloride ABG Glucose Carboxyhemoglobin Sodium 135 L Potassium Chloride 96.3 L Carbon Dioxide BUN 51 H Creatinine Glucose 275 H POC Glucose 257 H Lactic Acid Calcium Ferritin AST ALT Alkaline Phosphatase Lactate Dehydrogenase Troponin T Total Protein Albumin HDL Cholesterol Arterial Blood Glucose Arterial Blood Ionized Calcium Urine WBC (Auto) 06/04/21 06/04/21 06/04/21 09:48 11:08 17:33 WBC RBC Hgb Hct MCV MCH MCHC RDW Graves # (Auto) Seg Neutrophils % Seg Neuts % (Manual) Lymphocytes % (Manual) Monocytes % (Manual) Seg Neutrophils # Seg Neutrophils # Man Lymphocytes # (Manual) Monocytes # (Manual) PT APTT D-Dimer Heparin Anti-Xa Level ABG pH POC ABG pCO2 POC ABG pO2 ABG pO2 ABG Hemoglobin ABG Oxyhemoglobin ABG Sodium ABG Potassium ABG Chloride ABG Glucose Carboxyhemoglobin Sodium Potassium Chloride Carbon Dioxide BUN Creatinine Glucose POC Glucose 198 H 234 H 247 H Lactic Acid Calcium Ferritin AST ALT Alkaline Phosphatase Lactate Dehydrogenase Troponin T Total Protein Albumin HDL Cholesterol Arterial Blood Glucose Arterial Blood Ionized Calcium Urine WBC (Auto) 06/04/21 06/05/21 06/05/21 23:30 05:38 11:24 WBC RBC Hgb Hct MCV MCH MCHC RDW Graves # (Auto) Seg Neutrophils % Seg Neuts % (Manual) Lymphocytes % (Manual) Monocytes % (Manual) Seg Neutrophils # Seg Neutrophils # Man Lymphocytes # (Manual) Monocytes # (Manual) PT APTT D-Dimer Heparin Anti-Xa Level ABG pH POC ABG pCO2 POC ABG pO2 ABG pO2 ABG Hemoglobin ABG Oxyhemoglobin ABG Sodium ABG Potassium ABG Chloride ABG Glucose Carboxyhemoglobin Sodium Potassium Chloride Carbon Dioxide BUN Creatinine Glucose POC Glucose 192 H 192 H 287 H Lactic Acid Calcium Ferritin AST ALT Alkaline Phosphatase Lactate Dehydrogenase Troponin T Total Protein Albumin HDL Cholesterol Arterial Blood Glucose Arterial Blood Ionized Calcium Urine WBC (Auto) 06/05/21 06/05/21 06/05/21 12:20 12:20 12:20 WBC 16.2 H RBC 2.56 L Hgb 8.8 L Hct 25.2 L MCV 98 H MCH 35 H MCHC 35 H RDW 15.3 H Graves # (Auto) Seg Neutrophils % Seg Neuts % (Manual) Lymphocytes % (Manual) Monocytes % (Manual) Seg Neutrophils # Seg Neutrophils # Man Lymphocytes # (Manual) Monocytes # (Manual) PT APTT 72.2 H* D-Dimer Heparin Anti-Xa Level ABG pH POC ABG pCO2 POC ABG pO2 ABG pO2 ABG Hemoglobin ABG Oxyhemoglobin ABG Sodium ABG Potassium ABG Chloride ABG Glucose Carboxyhemoglobin Sodium 133 L Potassium Chloride 95.3 L Carbon Dioxide BUN 57 H Creatinine Glucose 313 H POC Glucose Lactic Acid Calcium Ferritin AST 90 H ALT 79 H Alkaline Phosphatase 262 H Lactate Dehydrogenase Troponin T Total Protein Albumin 2.7 L HDL Cholesterol Arterial Blood Glucose Arterial Blood Ionized Calcium Urine WBC (Auto) 06/05/21 06/05/21 06/05/21 17:50 22:57 23:36 WBC RBC Hgb Hct MCV MCH MCHC RDW Graves # (Auto) Seg Neutrophils % Seg Neuts % (Manual) Lymphocytes % (Manual) Monocytes % (Manual) Seg Neutrophils # Seg Neutrophils # Man Lymphocytes # (Manual) Monocytes # (Manual) PT APTT D-Dimer Heparin Anti-Xa Level 0.28 L ABG pH POC ABG pCO2 POC ABG pO2 ABG pO2 ABG Hemoglobin ABG Oxyhemoglobin ABG Sodium ABG Potassium ABG Chloride ABG Glucose Carboxyhemoglobin Sodium Potassium Chloride Carbon Dioxide BUN Creatinine Glucose POC Glucose 275 H 223 H Lactic Acid Calcium Ferritin AST ALT Alkaline Phosphatase Lactate Dehydrogenase Troponin T Total Protein Albumin HDL Cholesterol Arterial Blood Glucose Arterial Blood Ionized Calcium Urine WBC (Auto) 06/06/21 06/06/21 06/06/21 04:57 04:57 05:02 WBC 15.7 H RBC 2.77 L Hgb 9.4 L Hct 27.2 L MCV 98 H MCH 34 H MCHC RDW 15.4 H Graves # (Auto) Seg Neutrophils % Seg Neuts % (Manual) Lymphocytes % (Manual) Monocytes % (Manual) Seg Neutrophils # Seg Neutrophils # Man Lymphocytes # (Manual) Monocytes # (Manual) PT APTT D-Dimer Heparin Anti-Xa Level ABG pH POC ABG pCO2 POC ABG pO2 ABG pO2 ABG Hemoglobin ABG Oxyhemoglobin ABG Sodium ABG Potassium ABG Chloride ABG Glucose Carboxyhemoglobin Sodium Potassium 5.7 H Chloride Carbon Dioxide BUN 57 H Creatinine Glucose 245 H POC Glucose 217 H Lactic Acid Calcium Ferritin AST 99 H ALT 136 H Alkaline Phosphatase 312 H Lactate Dehydrogenase Troponin T Total Protein 6.1 L Albumin 3.1 L HDL Cholesterol Arterial Blood Glucose Arterial Blood Ionized Calcium Urine WBC (Auto) 06/06/21 06/06/21 06/06/21 11:37 17:34 18:09 WBC RBC Hgb Hct MCV MCH MCHC RDW Graves # (Auto) Seg Neutrophils % Seg Neuts % (Manual) Lymphocytes % (Manual) Monocytes % (Manual) Seg Neutrophils # Seg Neutrophils # Man Lymphocytes # (Manual) Monocytes # (Manual) PT APTT D-Dimer Heparin Anti-Xa Level ABG pH POC ABG pCO2 POC ABG pO2 ABG pO2 ABG Hemoglobin ABG Oxyhemoglobin ABG Sodium ABG Potassium ABG Chloride ABG Glucose Carboxyhemoglobin Sodium Potassium 5.2 H Chloride Carbon Dioxide BUN 48 H Creatinine Glucose 245 H POC Glucose 251 H 217 H Lactic Acid Calcium Ferritin AST ALT Alkaline Phosphatase Lactate Dehydrogenase Troponin T Total Protein Albumin HDL Cholesterol Arterial Blood Glucose Arterial Blood Ionized Calcium Urine WBC (Auto) 06/06/21 06/07/21 06/07/21 23:53 04:45 04:45 WBC 21.5 H RBC 2.71 L Hgb 9.0 L Hct 26.9 L MCV 99 H MCH 33 H MCHC RDW 15.3 H Graves # (Auto) Seg Neutrophils % Seg Neuts % (Manual) Lymphocytes % (Manual) Monocytes % (Manual) Seg Neutrophils # Seg Neutrophils # Man Lymphocytes # (Manual) Monocytes # (Manual) PT APTT D-Dimer Heparin Anti-Xa Level 0.10 L ABG pH POC ABG pCO2 POC ABG pO2 ABG pO2 ABG Hemoglobin ABG Oxyhemoglobin ABG Sodium ABG Potassium ABG Chloride ABG Glucose Carboxyhemoglobin Sodium Potassium Chloride Carbon Dioxide BUN Creatinine Glucose POC Glucose 224 H Lactic Acid Calcium Ferritin AST ALT Alkaline Phosphatase Lactate Dehydrogenase Troponin T Total Protein Albumin HDL Cholesterol Arterial Blood Glucose Arterial Blood Ionized Calcium Urine WBC (Auto) 06/07/21 06/07/21 06/07/21 04:45 05:11 11:50 WBC RBC Hgb Hct MCV MCH MCHC RDW Graves # (Auto) Seg Neutrophils % Seg Neuts % (Manual) Lymphocytes % (Manual) Monocytes % (Manual) Seg Neutrophils # Seg Neutrophils # Man Lymphocytes # (Manual) Monocytes # (Manual) PT APTT D-Dimer Heparin Anti-Xa Level ABG pH POC ABG pCO2 POC ABG pO2 ABG pO2 ABG Hemoglobin ABG Oxyhemoglobin ABG Sodium ABG Potassium ABG Chloride ABG Glucose Carboxyhemoglobin Sodium Potassium 5.4 H Chloride Carbon Dioxide BUN 55 H Creatinine Glucose 178 H POC Glucose 156 H 118 H Lactic Acid Calcium Ferritin AST ALT Alkaline Phosphatase Lactate Dehydrogenase Troponin T Total Protein Albumin HDL Cholesterol Arterial Blood Glucose Arterial Blood Ionized Calcium Urine WBC (Auto) Chest x-ray: image reviewed (no new infiltrate) Allied health notes reviewed: nursing
[2021-06-08 05:17] LABS: Hematocrit 25.7 % (30.3-42.9); Hemoglobin 8.6 gm/dl (10.1-14.3); Mean Corpuscular HGB Conc 33 % (30-34); Mean Corpuscular Volume 100 fl (79-97); Platelet Count 298 K/mm3 (140-440); Red Blood Count 2.58 M/mm3 (3.65-5.03); Red Cell Distribution Width 15.2 % (13.2-15.2)
[2021-06-08 05:30] LABS: Calcium 8.5 mg/dL (8.4-10.2)
[2021-06-08] MEDS: INSULIN LISPRO 100 UNIT/ML SUB-Q SCH ×3 (06:05→18:17)
[2021-06-08] MEDS: hydrALAZINE 25 MG TAB PO SCH ×3 (06:07→21:06)
[2021-06-08 06:24] LABS: Band Neutrophils # (Manual) 0.6 K/mm3; Myelocytes # (Manual) 0.3 K/mm3; Total Cells Counted 100
[2021-06-08 06:25] LABS: Platelet Estimate Consistent w Auto
[2021-06-08] MEDS: POLYETHYLENE GLYCOL 3350 17 GM POWDER PO SCH (09:41)
[2021-06-08] MEDS: VALSARTAN 160MG TAB PO SCH ×2 (09:41→21:05)
[2021-06-08] MEDS: levETIRAcetam 500 MG/5 ML ORAL LIQD FEEDTUBE SCH ×2 (09:41→21:06)
[2021-06-08] MEDS: DOXAZOSIN 1 MG TAB PO SCH ×2 (09:42→21:04)
[2021-06-08] MEDS: SENNOSIDES/DOCUSATE SODIUM 8.6/50 MG TAB FEEDTUBE SCH ×2 (09:42→21:04)
[2021-06-08] MEDS: GLYCOPYRROLATE 2 MG TAB PO SCH ×3 (09:43→21:06)
[2021-06-08] MEDS: FAMOTIDINE 20 MG TAB FEEDTUBE SCH ×2 (09:43→21:06)
[2021-06-08] MEDS: DOCUSATE SODIUM 100 MG/10 ML ORAL LIQD PO SCH ×2 (09:58→21:06)
[2021-06-08] MEDS ORDERED: INSULIN GLARGINE 100 UNITS/ML SUB-Q SCH (10:00)
--- NOTE | 2021-06-08 15:23 | Progress Note ---
Assessment and Plan Acute hypoxemic respiratory failure on MVS Cardiopulmonary arrest wtih ROSC Seizure disorder Sepsis Toxic metabolic encephalopathy, possible anoxia Atrial fibrillation with RVR Metabolic acidosis Bilateral lower lobe infiltrates - trach & PEG ordered - repeat CXR without new infiltrate - trend CBC prn while following clinically - continue care as below otherwise; - continue scopolamine for secretion control - continue Keppra as AED - daily SAT and SBT assessment as tolerated - continue to wean supplemental oxygen for target O2 sat's > 90% acutely - VAP bundle addressed - continue lung protective strategies - continue bronchodilators with pulmonary hygiene per RT - wean per pulmonary driven protocols otherwise - continue accuchecks with glycemic control per SSI (While critically ill target blood glucose of 140-180 mg/dL; avoid hypoglycemia) - sedation prn for target RASS 0 to -1 - avoid nephrotoxins, renally dose all medications - continue to avoid benzodiazepine's, reduce the possibility of delirium - AB's per ID rec's - prn analgesia per CPOT score - Maintenance of sleep-wake cycle, avoid delirium - continue enteral nutritional support at goal rate as tolerated - G.I. & VTE prophylaxis - PT/OT/ROM exercises - continue mobility protocols for pressure ulcer prophylaxis - Monitor hemodynamics closely - continue other care per attending / other consultants - discharge planning ongoing concurrently COVID SPECIFIC INTERVENTIONS - COVID-19 PCR negative .... Re-evaluate in am & prn CONDITION: CRITICAL PROGNOSIS: GUARDED CODE STATUS: FULL CODE The high probability of a clinically significant, sudden or life-threatening deterioration of the [respiratory, cardiovascular & neurologic] system(s) required my full and direct attention, intervention and personal management. The aggregate critical care time was [32] minutes without overlap. Time includes spent on; [x] Data Review and interpretation [x] Patient assessment and monitoring of vital signs [x] Documentation [x] Medication orders and management Subjective Date of service: 06/08/21 Principal diagnosis: Ac hypoxemic resp failure; Cardiac arrest; Seizures; Sepsis; AMS; A-Fib RVR Interval history: Patient is seen today for: Acute hypoxemic respiratory failure; Cardiac arrest wtih ROSC; Seizure disorder; Sepsis; AMS; A-Fib with RVR Seen and examined at bedside; 24hour events reviewed; nursing and respiratory care staff consulted; no adverse overnight events reported to me; resting in bed; remains on MVS; WBC down to 15k; no fever spikes or hemodynamic inst ability; family has decided on trach & PEG placement Objective Vital Signs - 12hr 06/08/21 06/08/21 06/08/21 03:30 03:45 04:00 Temperature 99.3 F Pulse Rate 86 79 Pulse Rate [ 80 From Monitor] Respiratory 18 13 Rate Blood Pressure 137/71 146/53 134/46 O2 Sat by Pulse 99 100 99 Oximetry 06/08/21 06/08/21 06/08/21 04:13 04:15 04:30 Temperature Pulse Rate 81 80 84 Pulse Rate [ From Monitor] Respiratory 13 15 Rate Blood Pressure 132/46 132/46 166/69 O2 Sat by Pulse 100 99 100 Oximetry 06/08/21 06/08/21 06/08/21 04:45 05:00 05:15 Temperature Pulse Rate 77 74 74 Pulse Rate [ From Monitor] Respiratory 13 12 14 Rate Blood Pressure 149/56 140/56 143/53 O2 Sat by Pulse 100 100 100 Oximetry 06/08/21 06/08/21 06/08/21 05:30 05:46 06:00 Temperature Pulse Rate 75 83 82 Pulse Rate [ From Monitor] Respiratory 13 16 15 Rate Blood Pressure 149/57 169/65 169/61 O2 Sat by Pulse 100 100 100 Oximetry 06/08/21 06/08/21 06/08/21 06:07 06:15 06:30 Temperature Pulse Rate 82 84 86 Pulse Rate [ From Monitor] Respiratory 18 16 Rate Blood Pressure 169/61 162/68 152/66 O2 Sat by Pulse 100 100 Oximetry 06/08/21 06/08/21 06/08/21 06:45 07:00 07:15 Temperature Pulse Rate 84 80 82 Pulse Rate [ From Monitor] Respiratory 15 24 17 Rate Blood Pressure 176/64 149/56 163/60 O2 Sat by Pulse 100 100 100 Oximetry 06/08/21 06/08/21 06/08/21 07:20 07:30 07:45 Temperature 98.4 F Pulse Rate 78 78 Pulse Rate [ From Monitor] Respiratory 17 13 Rate Blood Pressure 145/54 135/51 O2 Sat by Pulse 100 100 Oximetry 06/08/21 06/08/21 06/08/21 08:00 08:16 08:20 Temperature Pulse Rate 75 84 Pulse Rate [ From Monitor] Respiratory 14 35 H Rate Blood Pressure 145/56 185/83 O2 Sat by Pulse 100 100 97 Oximetry 06/08/21 06/08/21 06/08/21 08:23 08:30 08:45 Temperature Pulse Rate 87 87 85 Pulse Rate [ From Monitor] Respiratory 25 H 21 20 Rate Blood Pressure 175/63 172/63 169/64 O2 Sat by Pulse 100 99 100 Oximetry 06/08/21 06/08/21 06/08/21 09:00 09:15 09:30 Temperature Pulse Rate 84 85 83 Pulse Rate [ From Monitor] Respiratory 16 20 20 Rate Blood Pressure 164/63 168/64 167/61 O2 Sat by Pulse 100 100 100 Oximetry 06/08/21 06/08/21 06/08/21 09:41 09:42 09:43 Temperature Pulse Rate 82 82 82 Pulse Rate [ From Monitor] Respiratory Rate Blood Pressure 167/61 167/61 167/61 O2 Sat by Pulse Oximetry 06/08/21 06/08/21 06/08/21 09:45 10:00 10:15 Temperature Pulse Rate 86 88 85 Pulse Rate [ From Monitor] Respiratory 21 15 17 Rate Blood Pressure 166/61 177/68 168/65 O2 Sat by Pulse 99 100 99 Oximetry 06/08/21 06/08/21 06/08/21 10:30 10:45 11:00 Temperature Pulse Rate 78 76 80 Pulse Rate [ From Monitor] Respiratory 17 16 18 Rate Blood Pressure 152/60 137/54 150/63 O2 Sat by Pulse 99 99 99 Oximetry 06/08/21 06/08/21 06/08/21 11:15 11:30 12:05 Temperature 98.3 F Pulse Rate 75 77 Pulse Rate [ From Monitor] Respiratory 16 21 Rate Blood Pressure 133/53 131/52 O2 Sat by Pulse 100 99 Oximetry 06/08/21 06/08/21 12:20 13:01 Temperature Pulse Rate 75 78 Pulse Rate [ From Monitor] Respiratory 17 Rate Blood Pressure 116/59 153/59 O2 Sat by Pulse 99 Oximetry Constitutional: no acute distress, other (elderly female with mildly increased respiratory effort at rest on MVS) Eyes: non-icteric ENT: oropharynx moist, oropharyngeal exudate pre (clear), other (ETT at 23cm CHAPIN; + old bite muhammad on tongue with some macroglossia) Neck: supple, no lymphadenopathy Effort: mildly labored Ascultation: Bilateral: diminished breath sounds, rhonchi Percussion: Bilateral: not dull Cardiovascular: irregular rhythm, other (S1,S2) Gastrointestinal: normoactive bowel sounds, soft, non-tender, non-distended (protuberant) Integumentary: normal Extremities: no cyanosis, pulses normal, no ischemia or petechiae, other (Right femoral CVL) Neurologic: pupils equal and round, other (encephalopathic) Psychiatric: other (unable to assess) CBC and BMP: 06/09/21 05:20 06/09/21 05:20 ABG, PT/INR, D-dimer: ABG ABG pH 7.481 (7.320-7.450) H 06/02/21 04:13 POC ABG pCO2 36.9 mmHg (32.0-48.0) 06/02/21 04:13 ABG pCO2 30.3 mm Hg 05/29/21 05:28 POC ABG pO2 80.0 mmHg (83-108) L 06/02/21 04:13 ABG pO2 96.2 mm Hg (80.0-90.0) H 05/29/21 05:28 POC ABG HCO3 26.9 06/02/21 04:13 ABG O2 Saturation 95.7 (0-100) 06/02/21 04:13 PT/INR, D-dimer PT 15.0 Sec. (12.2-14.9) H 05/25/21 09:21 INR 1.13 (0.87-1.13) 05/25/21 09:21 D-Dimer > 24463 ng/mlDDU (0-234) H 05/25/21 09:21 Abnormal lab findings: Abnormal Labs 05/25/21 05/25/21 05/25/21 09:07 09:21 09:21 WBC 17.1 H RBC Hgb Hct MCV 106 H MCH 33 H MCHC RDW 15.6 H Gregory # (Auto) Seg Neutrophils % Seg Neuts % (Manual) Lymphocytes % (Manual) Monocytes % (Manual) Seg Neutrophils # Seg Neutrophils # Man 10.1 H Lymphocytes # (Manual) 5.6 H Monocytes # (Manual) PT 15.0 H APTT 44.3 H D-Dimer > 49013 H Heparin Anti-Xa Level ABG pH 7.116 L POC ABG pCO2 POC ABG pO2 ABG pO2 ABG Hemoglobin ABG Oxyhemoglobin 93.7 L ABG Sodium ABG Potassium ABG Chloride ABG Glucose 395 H Carboxyhemoglobin Sodium Potassium Chloride Carbon Dioxide BUN Creatinine Glucose POC Glucose Lactic Acid Calcium Ferritin AST ALT Alkaline Phosphatase Lactate Dehydrogenase Troponin T C-Reactive Protein Total Protein Albumin HDL Cholesterol Arterial Blood Glucose 395 H Arterial Blood Ionized Calcium 4.4 L Urine WBC (Auto) 05/25/21 05/25/21 05/25/21 09:21 09:21 09:21 WBC RBC Hgb Hct MCV MCH MCHC RDW Gregory # (Auto) Seg Neutrophils % Seg Neuts % (Manual) Lymphocytes % (Manual) Monocytes % (Manual) Seg Neutrophils # Seg Neutrophils # Man Lymphocytes # (Manual) Monocytes # (Manual) PT APTT D-Dimer Heparin Anti-Xa Level ABG pH POC ABG pCO2 POC ABG pO2 ABG pO2 ABG Hemoglobin ABG Oxyhemoglobin ABG Sodium ABG Potassium ABG Chloride ABG Glucose Carboxyhemoglobin Sodium Potassium Chloride Carbon Dioxide 10 L BUN Creatinine Glucose 423 H 424 H POC Glucose Lactic Acid Calcium 8.2 L Ferritin 321.6 H AST 162 H ALT 119 H Alkaline Phosphatase Lactate Dehydrogenase 445 H Troponin T C-Reactive Protein Total Protein 5.6 L Albumin 3.2 L HDL Cholesterol Arterial Blood Glucose Arterial Blood Ionized Calcium Urine WBC (Auto) 05/25/21 05/25/21 05/25/21 09:35 10:42 11:12 WBC RBC Hgb Hct MCV MCH MCHC RDW Gregory # (Auto) Seg Neutrophils % Seg Neuts % (Manual) Lymphocytes % (Manual) Monocytes % (Manual) Seg Neutrophils # Seg Neutrophils # Man Lymphocytes # (Manual) Monocytes # (Manual) PT APTT D-Dimer Heparin Anti-Xa Level ABG pH POC ABG pCO2 POC ABG pO2 ABG pO2 ABG Hemoglobin ABG Oxyhemoglobin ABG Sodium ABG Potassium ABG Chloride ABG Glucose Carboxyhemoglobin Sodium Potassium Chloride Carbon Dioxide BUN Creatinine Glucose POC Glucose Lactic Acid 16.70 H* 7.70 H* Calcium Ferritin AST ALT Alkaline Phosphatase Lactate Dehydrogenase Troponin T C-Reactive Protein Total Protein Albumin HDL Cholesterol Arterial Blood Glucose Arterial Blood Ionized Calcium Urine WBC (Auto) 11.0 H 05/25/21 05/25/21 05/25/21 14:07 15:19 19:04 WBC RBC Hgb Hct MCV MCH MCHC RDW Gregory # (Auto) Seg Neutrophils % Seg Neuts % (Manual) Lymphocytes % (Manual) Monocytes % (Manual) Seg Neutrophils # Seg Neutrophils # Man Lymphocytes # (Manual) Monocytes # (Manual) PT APTT D-Dimer Heparin Anti-Xa Level ABG pH POC ABG pCO2 POC ABG pO2 172.2 H ABG pO2 ABG Hemoglobin ABG Oxyhemoglobin 98.7 H ABG Sodium 135.7 L ABG Potassium ABG Chloride ABG Glucose 255 H Carboxyhemoglobin 0.3 L Sodium Potassium Chloride Carbon Dioxide BUN Creatinine Glucose POC Glucose Lactic Acid 3.90 H* Calcium Ferritin AST ALT Alkaline Phosphatase Lactate Dehydrogenase Troponin T 0.226 H* D C-Reactive Protein Total Protein Albumin HDL Cholesterol 64 H Arterial Blood Glucose 255 H Arterial Blood Ionized Calcium 3.8 L Urine WBC (Auto) 05/25/21 05/25/21 05/26/21 21:16 21:16 04:00 WBC RBC Hgb Hct MCV MCH MCHC RDW Gregory # (Auto) Seg Neutrophils % Seg Neuts % (Manual) Lymphocytes % (Manual) Monocytes % (Manual) Seg Neutrophils # Seg Neutrophils # Man Lymphocytes # (Manual) Monocytes # (Manual) PT APTT D-Dimer Heparin Anti-Xa Level 1.19 H ABG pH 7.547 H POC ABG pCO2 POC ABG pO2 ABG pO2 ABG Hemoglobin 11.9 L ABG Oxyhemoglobin ABG Sodium 133.2 L ABG Potassium 3.1 L ABG Chloride ABG Glucose 243 H Carboxyhemoglobin 0.3 L Sodium Potassium Chloride Carbon Dioxide BUN Creatinine Glucose POC Glucose Lactic Acid 2.50 H* Calcium Ferritin AST ALT Alkaline Phosphatase Lactate Dehydrogenase Troponin T C-Reactive Protein Total Protein Albumin HDL Cholesterol Arterial Blood Glucose 243 H Arterial Blood Ionized Calcium Urine WBC (Auto) 05/26/21 05/26/21 05/26/21 05:49 05:49 17:33 WBC RBC Hgb Hct MCV MCH MCHC RDW Gregory # (Auto) Seg Neutrophils % Seg Neuts % (Manual) Lymphocytes % (Manual) Monocytes % (Manual) Seg Neutrophils # Seg Neutrophils # Man Lymphocytes # (Manual) Monocytes # (Manual) PT APTT D-Dimer Heparin Anti-Xa Level ABG pH POC ABG pCO2 POC ABG pO2 ABG pO2 ABG Hemoglobin ABG Oxyhemoglobin ABG Sodium ABG Potassium ABG Chloride ABG Glucose Carboxyhemoglobin Sodium Potassium Chloride Carbon Dioxide BUN Creatinine Glucose 226 H POC Glucose 156 H Lactic Acid 2.30 H* Calcium 7.2 L Ferritin AST 111 H ALT 97 H Alkaline Phosphatase Lactate Dehydrogenase Troponin T C-Reactive Protein Total Protein 5.4 L Albumin 3.3 L HDL Cholesterol Arterial Blood Glucose Arterial Blood Ionized Calcium Urine WBC (Auto) 05/27/21 05/27/21 05/27/21 02:11 02:11 02:11 WBC 14.3 H RBC 3.27 L Hgb Hct MCV 99 H MCH 33 H MCHC RDW 15.3 H Gregory # (Auto) 1.0 H Seg Neutrophils % Seg Neuts % (Manual) Lymphocytes % (Manual) Monocytes % (Manual) Seg Neutrophils # 10.0 H Seg Neutrophils # Man Lymphocytes # (Manual) Monocytes # (Manual) PT APTT D-Dimer Heparin Anti-Xa Level 0.80 H ABG pH POC ABG pCO2 POC ABG pO2 ABG pO2 ABG Hemoglobin ABG Oxyhemoglobin ABG Sodium ABG Potassium ABG Chloride ABG Glucose Carboxyhemoglobin Sodium Potassium 2.9 L* D Chloride Carbon Dioxide 31 H BUN 6 L Creatinine Glucose 215 H POC Glucose Lactic Acid Calcium 8.1 L Ferritin AST ALT Alkaline Phosphatase Lactate Dehydrogenase Troponin T C-Reactive Protein Total Protein Albumin HDL Cholesterol Arterial Blood Glucose Arterial Blood Ionized Calcium Urine WBC (Auto) 05/27/21 05/27/21 05/27/21 11:24 12:49 18:06 WBC RBC Hgb Hct MCV MCH MCHC RDW Gregory # (Auto) Seg Neutrophils % Seg Neuts % (Manual) Lymphocytes % (Manual) Monocytes % (Manual) Seg Neutrophils # Seg Neutrophils # Man Lymphocytes # (Manual) Monocytes # (Manual) PT APTT D-Dimer Heparin Anti-Xa Level ABG pH POC ABG pCO2 POC ABG pO2 ABG pO2 ABG Hemoglobin ABG Oxyhemoglobin ABG Sodium ABG Potassium ABG Chloride ABG Glucose Carboxyhemoglobin Sodium Potassium Chloride Carbon Dioxide BUN Creatinine Glucose POC Glucose 151 H 165 H 137 H Lactic Acid Calcium Ferritin AST ALT Alkaline Phosphatase Lactate Dehydrogenase Troponin T C-Reactive Protein Total Protein Albumin HDL Cholesterol Arterial Blood Glucose Arterial Blood Ionized Calcium Urine WBC (Auto) 05/28/21 05/28/21 05/28/21 04:00 04:00 06:02 WBC 13.5 H RBC 3.05 L Hgb Hct MCV 100 H MCH 34 H MCHC RDW Gregory # (Auto) 0.9 H Seg Neutrophils % 78.2 H Seg Neuts % (Manual) Lymphocytes % (Manual) Monocytes % (Manual) Seg Neutrophils # 10.6 H Seg Neutrophils # Man Lymphocytes # (Manual) Monocytes # (Manual) PT APTT D-Dimer Heparin Anti-Xa Level ABG pH 7.507 H POC ABG pCO2 POC ABG pO2 ABG pO2 ABG Hemoglobin 10.6 L ABG Oxyhemoglobin ABG Sodium 129.4 L ABG Potassium ABG Chloride ABG Glucose 243 H Carboxyhemoglobin 0.2 L Sodium 136 L D Potassium Chloride Carbon Dioxide BUN Creatinine Glucose 215 H POC Glucose Lactic Acid Calcium Ferritin AST ALT Alkaline Phosphatase Lactate Dehydrogenase Troponin T C-Reactive Protein Total Protein Albumin HDL Cholesterol Arterial Blood Glucose 243 H Arterial Blood Ionized Calcium 4.1 L Urine WBC (Auto) 05/28/21 05/28/21 05/29/21 11:27 23:02 04:30 WBC RBC Hgb 9.3 L Hct 26.7 L MCV MCH MCHC RDW Gregory # (Auto) Seg Neutrophils % Seg Neuts % (Manual) Lymphocytes % (Manual) Monocytes % (Manual) Seg Neutrophils # Seg Neutrophils # Man Lymphocytes # (Manual) Monocytes # (Manual) PT APTT D-Dimer Heparin Anti-Xa Level ABG pH POC ABG pCO2 POC ABG pO2 ABG pO2 ABG Hemoglobin ABG Oxyhemoglobin ABG Sodium ABG Potassium ABG Chloride ABG Glucose Carboxyhemoglobin Sodium Potassium Chloride Carbon Dioxide BUN Creatinine Glucose POC Glucose 220 H 212 H Lactic Acid Calcium Ferritin AST ALT Alkaline Phosphatase Lactate Dehydrogenase Troponin T C-Reactive Protein Total Protein Albumin HDL Cholesterol Arterial Blood Glucose Arterial Blood Ionized Calcium Urine WBC (Auto) 05/29/21 05/29/21 05/29/21 05:02 05:28 12:55 WBC RBC Hgb Hct MCV MCH MCHC RDW Gregory # (Auto) Seg Neutrophils % Seg Neuts % (Manual) Lymphocytes % (Manual) Monocytes % (Manual) Seg Neutrophils # Seg Neutrophils # Man Lymphocytes # (Manual) Monocytes # (Manual) PT APTT D-Dimer Heparin Anti-Xa Level ABG pH 7.516 H POC ABG pCO2 POC ABG pO2 ABG pO2 96.2 H ABG Hemoglobin 7.5 L ABG Oxyhemoglobin ABG Sodium ABG Potassium ABG Chloride ABG Glucose Carboxyhemoglobin Sodium Potassium Chloride Carbon Dioxide BUN Creatinine Glucose POC Glucose 197 H 251 H Lactic Acid Calcium Ferritin AST ALT Alkaline Phosphatase Lactate Dehydrogenase Troponin T C-Reactive Protein Total Protein Albumin HDL Cholesterol Arterial Blood Glucose Arterial Blood Ionized Calcium Urine WBC (Auto) 05/29/21 05/29/21 05/30/21 18:23 23:31 04:10 WBC RBC Hgb Hct MCV MCH MCHC RDW Gregory # (Auto) Seg Neutrophils % Seg Neuts % (Manual) Lymphocytes % (Manual) Monocytes % (Manual) Seg Neutrophils # Seg Neutrophils # Man Lymphocytes # (Manual) Monocytes # (Manual) PT APTT D-Dimer Heparin Anti-Xa Level ABG pH 7.532 H POC ABG pCO2 30.0 L POC ABG pO2 78.5 L ABG pO2 ABG Hemoglobin 11.3 L ABG Oxyhemoglobin ABG Sodium 126.7 L ABG Potassium ABG Chloride 94.0 L ABG Glucose 270 H Carboxyhemoglobin 0.4 L Sodium Potassium Chloride Carbon Dioxide BUN Creatinine Glucose POC Glucose 236 H 252 H Lactic Acid Calcium Ferritin AST ALT Alkaline Phosphatase Lactate Dehydrogenase Troponin T C-Reactive Protein Total Protein Albumin HDL Cholesterol Arterial Blood Glucose 270 H Arterial Blood Ionized Calcium 4.4 L Urine WBC (Auto) 05/30/21 05/30/21 05/30/21 05:06 06:23 11:15 WBC RBC Hgb Hct MCV MCH MCHC RDW Gregory # (Auto) Seg Neutrophils % Seg Neuts % (Manual) Lymphocytes % (Manual) Monocytes % (Manual) Seg Neutrophils # Seg Neutrophils # Man Lymphocytes # (Manual) Monocytes # (Manual) PT APTT D-Dimer Heparin Anti-Xa Level ABG pH POC ABG pCO2 POC ABG pO2 ABG pO2 ABG Hemoglobin ABG Oxyhemoglobin ABG Sodium ABG Potassium ABG Chloride ABG Glucose Carboxyhemoglobin Sodium 126 L D Potassium Chloride 91.9 L Carbon Dioxide 20 L D BUN Creatinine 0.4 L Glucose 274 H POC Glucose 242 H 346 H Lactic Acid Calcium Ferritin AST ALT Alkaline Phosphatase Lactate Dehydrogenase Troponin T C-Reactive Protein Total Protein Albumin HDL Cholesterol Arterial Blood Glucose Arterial Blood Ionized Calcium Urine WBC (Auto) 05/30/21 05/30/21 05/30/21 11:19 11:19 11:19 WBC 18.9 H RBC 3.36 L Hgb Hct MCV 102 H MCH 33 H MCHC RDW 15.5 H Gregory # (Auto) Seg Neutrophils % Seg Neuts % (Manual) Lymphocytes % (Manual) Monocytes % (Manual) Seg Neutrophils # Seg Neutrophils # Man Lymphocytes # (Manual) Monocytes # (Manual) PT APTT D-Dimer Heparin Anti-Xa Level < 0.10 L ABG pH POC ABG pCO2 POC ABG pO2 ABG pO2 ABG Hemoglobin ABG Oxyhemoglobin ABG Sodium ABG Potassium ABG Chloride ABG Glucose Carboxyhemoglobin Sodium 124 L Potassium Chloride Carbon Dioxide BUN Creatinine Glucose POC Glucose Lactic Acid Calcium Ferritin AST ALT Alkaline Phosphatase Lactate Dehydrogenase Troponin T C-Reactive Protein Total Protein Albumin HDL Cholesterol Arterial Blood Glucose Arterial Blood Ionized Calcium Urine WBC (Auto) 05/30/21 05/30/21 05/31/21 17:02 23:27 03:37 WBC RBC Hgb Hct MCV MCH MCHC RDW Gregory # (Auto) Seg Neutrophils % Seg Neuts % (Manual) Lymphocytes % (Manual) Monocytes % (Manual) Seg Neutrophils # Seg Neutrophils # Man Lymphocytes # (Manual) Monocytes # (Manual) PT APTT D-Dimer Heparin Anti-Xa Level ABG pH POC ABG pCO2 POC ABG pO2 ABG pO2 ABG Hemoglobin 11.6 L ABG Oxyhemoglobin ABG Sodium 130.0 L ABG Potassium ABG Chloride 95.0 L ABG Glucose 292 H Carboxyhemoglobin Sodium Potassium Chloride Carbon Dioxide BUN Creatinine Glucose POC Glucose 270 H 237 H Lactic Acid Calcium Ferritin AST ALT Alkaline Phosphatase Lactate Dehydrogenase Troponin T C-Reactive Protein Total Protein Albumin HDL Cholesterol Arterial Blood Glucose 292 H Arterial Blood Ionized Calcium Urine WBC (Auto) 05/31/21 05/31/21 05/31/21 04:00 04:00 05:20 WBC 20.9 H RBC 3.13 L Hgb Hct MCV 99 H MCH 34 H MCHC RDW Gregory # (Auto) Seg Neutrophils % Seg Neuts % (Manual) 81.0 H Lymphocytes % (Manual) 8.0 L Monocytes % (Manual) 9.0 H Seg Neutrophils # Seg Neutrophils # Man 16.9 H Lymphocytes # (Manual) Monocytes # (Manual) 1.9 H PT APTT D-Dimer Heparin Anti-Xa Level ABG pH POC ABG pCO2 POC ABG pO2 ABG pO2 ABG Hemoglobin ABG Oxyhemoglobin ABG Sodium ABG Potassium ABG Chloride ABG Glucose Carboxyhemoglobin Sodium 133 L D Potassium Chloride 95.4 L Carbon Dioxide 21 L BUN 30 H Creatinine 0.5 L Glucose 305 H POC Glucose 269 H Lactic Acid Calcium Ferritin AST ALT Alkaline Phosphatase Lactate Dehydrogenase Troponin T C-Reactive Protein Total Protein Albumin HDL Cholesterol Arterial Blood Glucose Arterial Blood Ionized Calcium Urine WBC (Auto) 05/31/21 05/31/21 05/31/21 11:40 18:16 23:25 WBC RBC Hgb Hct MCV MCH MCHC RDW Gregory # (Auto) Seg Neutrophils % Seg Neuts % (Manual) Lymphocytes % (Manual) Monocytes % (Manual) Seg Neutrophils # Seg Neutrophils # Man Lymphocytes # (Manual) Monocytes # (Manual) PT APTT D-Dimer Heparin Anti-Xa Level ABG pH POC ABG pCO2 POC ABG pO2 ABG pO2 ABG Hemoglobin ABG Oxyhemoglobin ABG Sodium ABG Potassium ABG Chloride ABG Glucose Carboxyhemoglobin Sodium Potassium Chloride Carbon Dioxide BUN Creatinine Glucose POC Glucose 364 H 250 H 231 H Lactic Acid Calcium Ferritin AST ALT Alkaline Phosphatase Lactate Dehydrogenase Troponin T C-Reactive Protein Total Protein Albumin HDL Cholesterol Arterial Blood Glucose Arterial Blood Ionized Calcium Urine WBC (Auto) 06/01/21 06/01/21 06/01/21 04:03 04:58 04:58 WBC 20.7 H RBC 3.20 L Hgb Hct MCV 99 H MCH 34 H MCHC RDW Gregory # (Auto) Seg Neutrophils % Seg Neuts % (Manual) 82.0 H Lymphocytes % (Manual) 9.0 L Monocytes % (Manual) Seg Neutrophils # Seg Neutrophils # Man 17.0 H Lymphocytes # (Manual) Monocytes # (Manual) 1.4 H PT APTT D-Dimer Heparin Anti-Xa Level 1.18 H ABG pH 7.520 H POC ABG pCO2 POC ABG pO2 66.0 L ABG pO2 ABG Hemoglobin ABG Oxyhemoglobin 92.5 L ABG Sodium 133.6 L ABG Potassium ABG Chloride ABG Glucose 250 H Carboxyhemoglobin Sodium Potassium Chloride Carbon Dioxide BUN Creatinine Glucose POC Glucose Lactic Acid Calcium Ferritin AST ALT Alkaline Phosphatase Lactate Dehydrogenase Troponin T C-Reactive Protein Total Protein Albumin HDL Cholesterol Arterial Blood Glucose 250 H Arterial Blood Ionized Calcium 4.4 L Urine WBC (Auto) 06/01/21 06/01/21 06/01/21 04:58 05:29 11:39 WBC RBC Hgb Hct MCV MCH MCHC RDW Gregory # (Auto) Seg Neutrophils % Seg Neuts % (Manual) Lymphocytes % (Manual) Monocytes % (Manual) Seg Neutrophils # Seg Neutrophils # Man Lymphocytes # (Manual) Monocytes # (Manual) PT APTT D-Dimer Heparin Anti-Xa Level ABG pH POC ABG pCO2 POC ABG pO2 ABG pO2 ABG Hemoglobin ABG Oxyhemoglobin ABG Sodium ABG Potassium ABG Chloride ABG Glucose Carboxyhemoglobin Sodium 131 L Potassium Chloride 95.7 L Carbon Dioxide BUN 30 H Creatinine 0.5 L Glucose 241 H POC Glucose 215 H 299 H Lactic Acid Calcium Ferritin AST ALT Alkaline Phosphatase Lactate Dehydrogenase Troponin T C-Reactive Protein Total Protein Albumin HDL Cholesterol Arterial Blood Glucose Arterial Blood Ionized Calcium Urine WBC (Auto) 06/01/21 06/02/21 06/02/21 18:14 00:12 02:25 WBC 17.4 H RBC 3.09 L Hgb Hct MCV 101 H MCH 34 H MCHC RDW 15.5 H Gregory # (Auto) Seg Neutrophils % Seg Neuts % (Manual) Lymphocytes % (Manual) Monocytes % (Manual) Seg Neutrophils # Seg Neutrophils # Man Lymphocytes # (Manual) Monocytes # (Manual) PT APTT D-Dimer Heparin Anti-Xa Level ABG pH POC ABG pCO2 POC ABG pO2 ABG pO2 ABG Hemoglobin ABG Oxyhemoglobin ABG Sodium ABG Potassium ABG Chloride ABG Glucose Carboxyhemoglobin Sodium Potassium Chloride Carbon Dioxide BUN Creatinine Glucose POC Glucose 215 H 175 H Lactic Acid Calcium Ferritin AST ALT Alkaline Phosphatase Lactate Dehydrogenase Troponin T C-Reactive Protein Total Protein Albumin HDL Cholesterol Arterial Blood Glucose Arterial Blood Ionized Calcium Urine WBC (Auto) 06/02/21 06/02/21 06/02/21 02:25 04:13 04:58 WBC RBC Hgb Hct MCV MCH MCHC RDW Gregory # (Auto) Seg Neutrophils % Seg Neuts % (Manual) Lymphocytes % (Manual) Monocytes % (Manual) Seg Neutrophils # Seg Neutrophils # Man Lymphocytes # (Manual) Monocytes # (Manual) PT APTT D-Dimer Heparin Anti-Xa Level ABG pH 7.481 H POC ABG pCO2 POC ABG pO2 80.0 L ABG pO2 ABG Hemoglobin 11.1 L ABG Oxyhemoglobin ABG Sodium 131.9 L ABG Potassium ABG Chloride ABG Glucose 231 H Carboxyhemoglobin 0.2 L Sodium 134 L Potassium Chloride 95.8 L Carbon Dioxide BUN 31 H Creatinine 0.5 L Glucose 168 H POC Glucose 230 H Lactic Acid Calcium Ferritin AST ALT Alkaline Phosphatase Lactate Dehydrogenase Troponin T C-Reactive Protein Total Protein Albumin HDL Cholesterol Arterial Blood Glucose 231 H Arterial Blood Ionized Calcium Urine WBC (Auto) 06/02/21 06/02/21 06/02/21 11:27 17:47 23:53 WBC RBC Hgb Hct MCV MCH MCHC RDW Gregory # (Auto) Seg Neutrophils % Seg Neuts % (Manual) Lymphocytes % (Manual) Monocytes % (Manual) Seg Neutrophils # Seg Neutrophils # Man Lymphocytes # (Manual) Monocytes # (Manual) PT APTT D-Dimer Heparin Anti-Xa Level 0.80 H ABG pH POC ABG pCO2 POC ABG pO2 ABG pO2 ABG Hemoglobin ABG Oxyhemoglobin ABG Sodium ABG Potassium ABG Chloride ABG Glucose Carboxyhemoglobin Sodium Potassium Chloride Carbon Dioxide BUN Creatinine Glucose POC Glucose 259 H 297 H Lactic Acid Calcium Ferritin AST ALT Alkaline Phosphatase Lactate Dehydrogenase Troponin T C-Reactive Protein Total Protein Albumin HDL Cholesterol Arterial Blood Glucose Arterial Blood Ionized Calcium Urine WBC (Auto) 06/03/21 06/03/21 06/03/21 00:05 05:23 09:10 WBC RBC Hgb Hct MCV MCH MCHC RDW Gregory # (Auto) Seg Neutrophils % Seg Neuts % (Manual) Lymphocytes % (Manual) Monocytes % (Manual) Seg Neutrophils # Seg Neutrophils # Man Lymphocytes # (Manual) Monocytes # (Manual) PT APTT D-Dimer Heparin Anti-Xa Level 0.84 H ABG pH POC ABG pCO2 POC ABG pO2 ABG pO2 ABG Hemoglobin ABG Oxyhemoglobin ABG Sodium ABG Potassium ABG Chloride ABG Glucose Carboxyhemoglobin Sodium Potassium Chloride Carbon Dioxide BUN Creatinine Glucose POC Glucose 268 H 170 H Lactic Acid Calcium Ferritin AST ALT Alkaline Phosphatase Lactate Dehydrogenase Troponin T C-Reactive Protein Total Protein Albumin HDL Cholesterol Arterial Blood Glucose Arterial Blood Ionized Calcium Urine WBC (Auto) 06/03/21 06/03/21 06/03/21 12:06 20:22 23:30 WBC RBC Hgb Hct MCV MCH MCHC RDW Gregory # (Auto) Seg Neutrophils % Seg Neuts % (Manual) Lymphocytes % (Manual) Monocytes % (Manual) Seg Neutrophils # Seg Neutrophils # Man Lymphocytes # (Manual) Monocytes # (Manual) PT APTT D-Dimer Heparin Anti-Xa Level ABG pH POC ABG pCO2 POC ABG pO2 ABG pO2 ABG Hemoglobin ABG Oxyhemoglobin ABG Sodium ABG Potassium ABG Chloride ABG Glucose Carboxyhemoglobin Sodium Potassium Chloride Carbon Dioxide BUN Creatinine Glucose POC Glucose 275 H 260 H 215 H Lactic Acid Calcium Ferritin AST ALT Alkaline Phosphatase Lactate Dehydrogenase Troponin T C-Reactive Protein Total Protein Albumin HDL Cholesterol Arterial Blood Glucose Arterial Blood Ionized Calcium Urine WBC (Auto) 06/04/21 06/04/21 06/04/21 05:03 05:57 05:57 WBC 17.8 H RBC 2.83 L Hgb 9.6 L Hct 28.4 L MCV 100 H MCH 34 H MCHC RDW 15.5 H Gregory # (Auto) Seg Neutrophils % Seg Neuts % (Manual) 83.0 H Lymphocytes % (Manual) 4.0 L Monocytes % (Manual) Seg Neutrophils # Seg Neutrophils # Man 14.8 H Lymphocytes # (Manual) 0.7 L Monocytes # (Manual) 1.1 H PT APTT D-Dimer Heparin Anti-Xa Level ABG pH POC ABG pCO2 POC ABG pO2 ABG pO2 ABG Hemoglobin ABG Oxyhemoglobin ABG Sodium ABG Potassium ABG Chloride ABG Glucose Carboxyhemoglobin Sodium 135 L Potassium Chloride 96.3 L Carbon Dioxide BUN 51 H Creatinine Glucose 275 H POC Glucose 257 H Lactic Acid Calcium Ferritin AST ALT Alkaline Phosphatase Lactate Dehydrogenase Troponin T C-Reactive Protein Total Protein Albumin HDL Cholesterol Arterial Blood Glucose Arterial Blood Ionized Calcium Urine WBC (Auto) 06/04/21 06/04/21 06/04/21 09:48 11:08 17:33 WBC RBC Hgb Hct MCV MCH MCHC RDW Gregory # (Auto) Seg Neutrophils % Seg Neuts % (Manual) Lymphocytes % (Manual) Monocytes % (Manual) Seg Neutrophils # Seg Neutrophils # Man Lymphocytes # (Manual) Monocytes # (Manual) PT APTT D-Dimer Heparin Anti-Xa Level ABG pH POC ABG pCO2 POC ABG pO2 ABG pO2 ABG Hemoglobin ABG Oxyhemoglobin ABG Sodium ABG Potassium ABG Chloride ABG Glucose Carboxyhemoglobin Sodium Potassium Chloride Carbon Dioxide BUN Creatinine Glucose POC Glucose 198 H 234 H 247 H Lactic Acid Calcium Ferritin AST ALT Alkaline Phosphatase Lactate Dehydrogenase Troponin T C-Reactive Protein Total Protein Albumin HDL Cholesterol Arterial Blood Glucose Arterial Blood Ionized Calcium Urine WBC (Auto) 06/04/21 06/05/21 06/05/21 23:30 05:38 11:24 WBC RBC Hgb Hct MCV MCH MCHC RDW Gregory # (Auto) Seg Neutrophils % Seg Neuts % (Manual) Lymphocytes % (Manual) Monocytes % (Manual) Seg Neutrophils # Seg Neutrophils # Man Lymphocytes # (Manual) Monocytes # (Manual) PT APTT D-Dimer Heparin Anti-Xa Level ABG pH POC ABG pCO2 POC ABG pO2 ABG pO2 ABG Hemoglobin ABG Oxyhemoglobin ABG Sodium ABG Potassium ABG Chloride ABG Glucose Carboxyhemoglobin Sodium Potassium Chloride Carbon Dioxide BUN Creatinine Glucose POC Glucose 192 H 192 H 287 H Lactic Acid Calcium Ferritin AST ALT Alkaline Phosphatase Lactate Dehydrogenase Troponin T C-Reactive Protein Total Protein Albumin HDL Cholesterol Arterial Blood Glucose Arterial Blood Ionized Calcium Urine WBC (Auto) 06/05/21 06/05/21 06/05/21 12:20 12:20 12:20 WBC 16.2 H RBC 2.56 L Hgb 8.8 L Hct 25.2 L MCV 98 H MCH 35 H MCHC 35 H RDW 15.3 H Gregory # (Auto) Seg Neutrophils % Seg Neuts % (Manual) Lymphocytes % (Manual) Monocytes % (Manual) Seg Neutrophils # Seg Neutrophils # Man Lymphocytes # (Manual) Monocytes # (Manual) PT APTT 72.2 H* D-Dimer Heparin Anti-Xa Level ABG pH POC ABG pCO2 POC ABG pO2 ABG pO2 ABG Hemoglobin ABG Oxyhemoglobin ABG Sodium ABG Potassium ABG Chloride ABG Glucose Carboxyhemoglobin Sodium 133 L Potassium Chloride 95.3 L Carbon Dioxide BUN 57 H Creatinine Glucose 313 H POC Glucose Lactic Acid Calcium Ferritin AST 90 H ALT 79 H Alkaline Phosphatase 262 H Lactate Dehydrogenase Troponin T C-Reactive Protein Total Protein Albumin 2.7 L HDL Cholesterol Arterial Blood Glucose Arterial Blood Ionized Calcium Urine WBC (Auto) 06/05/21 06/05/21 06/05/21 17:50 22:57 23:36 WBC RBC Hgb Hct MCV MCH MCHC RDW Gregory # (Auto) Seg Neutrophils % Seg Neuts % (Manual) Lymphocytes % (Manual) Monocytes % (Manual) Seg Neutrophils # Seg Neutrophils # Man Lymphocytes # (Manual) Monocytes # (Manual) PT APTT D-Dimer Heparin Anti-Xa Level 0.28 L ABG pH POC ABG pCO2 POC ABG pO2 ABG pO2 ABG Hemoglobin ABG Oxyhemoglobin ABG Sodium ABG Potassium ABG Chloride ABG Glucose Carboxyhemoglobin Sodium Potassium Chloride Carbon Dioxide BUN Creatinine Glucose POC Glucose 275 H 223 H Lactic Acid Calcium Ferritin AST ALT Alkaline Phosphatase Lactate Dehydrogenase Troponin T C-Reactive Protein Total Protein Albumin HDL Cholesterol Arterial Blood Glucose Arterial Blood Ionized Calcium Urine WBC (Auto) 06/06/21 06/06/21 06/06/21 04:57 04:57 05:02 WBC 15.7 H RBC 2.77 L Hgb 9.4 L Hct 27.2 L MCV 98 H MCH 34 H MCHC RDW 15.4 H Gregory # (Auto) Seg Neutrophils % Seg Neuts % (Manual) Lymphocytes % (Manual) Monocytes % (Manual) Seg Neutrophils # Seg Neutrophils # Man Lymphocytes # (Manual) Monocytes # (Manual) PT APTT D-Dimer Heparin Anti-Xa Level ABG pH POC ABG pCO2 POC ABG pO2 ABG pO2 ABG Hemoglobin ABG Oxyhemoglobin ABG Sodium ABG Potassium ABG Chloride ABG Glucose Carboxyhemoglobin Sodium Potassium 5.7 H Chloride Carbon Dioxide BUN 57 H Creatinine Glucose 245 H POC Glucose 217 H Lactic Acid Calcium Ferritin AST 99 H ALT 136 H Alkaline Phosphatase 312 H Lactate Dehydrogenase Troponin T C-Reactive Protein Total Protein 6.1 L Albumin 3.1 L HDL Cholesterol Arterial Blood Glucose Arterial Blood Ionized Calcium Urine WBC (Auto) 06/06/21 06/06/21 06/06/21 11:37 17:34 18:09 WBC RBC Hgb Hct MCV MCH MCHC RDW Gregory # (Auto) Seg Neutrophils % Seg Neuts % (Manual) Lymphocytes % (Manual) Monocytes % (Manual) Seg Neutrophils # Seg Neutrophils # Man Lymphocytes # (Manual) Monocytes # (Manual) PT APTT D-Dimer Heparin Anti-Xa Level ABG pH POC ABG pCO2 POC ABG pO2 ABG pO2 ABG Hemoglobin ABG Oxyhemoglobin ABG Sodium ABG Potassium ABG Chloride ABG Glucose Carboxyhemoglobin Sodium Potassium 5.2 H Chloride Carbon Dioxide BUN 48 H Creatinine Glucose 245 H POC Glucose 251 H 217 H Lactic Acid Calcium Ferritin AST ALT Alkaline Phosphatase Lactate Dehydrogenase Troponin T C-Reactive Protein Total Protein Albumin HDL Cholesterol Arterial Blood Glucose Arterial Blood Ionized Calcium Urine WBC (Auto) 06/06/21 06/07/21 06/07/21 23:53 04:45 04:45 WBC 21.5 H RBC 2.71 L Hgb 9.0 L Hct 26.9 L MCV 99 H MCH 33 H MCHC RDW 15.3 H Gregory # (Auto) Seg Neutrophils % Seg Neuts % (Manual) Lymphocytes % (Manual) Monocytes % (Manual) Seg Neutrophils # Seg Neutrophils # Man Lymphocytes # (Manual) Monocytes # (Manual) PT APTT D-Dimer Heparin Anti-Xa Level 0.10 L ABG pH POC ABG pCO2 POC ABG pO2 ABG pO2 ABG Hemoglobin ABG Oxyhemoglobin ABG Sodium ABG Potassium ABG Chloride ABG Glucose Carboxyhemoglobin Sodium Potassium Chloride Carbon Dioxide BUN Creatinine Glucose POC Glucose 224 H Lactic Acid Calcium Ferritin AST ALT Alkaline Phosphatase Lactate Dehydrogenase Troponin T C-Reactive Protein Total Protein Albumin HDL Cholesterol Arterial Blood Glucose Arterial Blood Ionized Calcium Urine WBC (Auto) 06/07/21 06/07/21 06/07/21 04:45 05:11 11:50 WBC RBC Hgb Hct MCV MCH MCHC RDW Gregory # (Auto) Seg Neutrophils % Seg Neuts % (Manual) Lymphocytes % (Manual) Monocytes % (Manual) Seg Neutrophils # Seg Neutrophils # Man Lymphocytes # (Manual) Monocytes # (Manual) PT APTT D-Dimer Heparin Anti-Xa Level ABG pH POC ABG pCO2 POC ABG pO2 ABG pO2 ABG Hemoglobin ABG Oxyhemoglobin ABG Sodium ABG Potassium ABG Chloride ABG Glucose Carboxyhemoglobin Sodium Potassium 5.4 H Chloride Carbon Dioxide BUN 55 H Creatinine Glucose 178 H POC Glucose 156 H 118 H Lactic Acid Calcium Ferritin AST ALT Alkaline Phosphatase Lactate Dehydrogenase Troponin T C-Reactive Protein Total Protein Albumin HDL Cholesterol Arterial Blood Glucose Arterial Blood Ionized Calcium Urine WBC (Auto) 06/07/21 06/07/21 06/07/21 14:52 17:45 20:43 WBC RBC Hgb Hct MCV MCH MCHC RDW Gregory # (Auto) Seg Neutrophils % Seg Neuts % (Manual) Lymphocytes % (Manual) Monocytes % (Manual) Seg Neutrophils # Seg Neutrophils # Man Lymphocytes # (Manual) Monocytes # (Manual) PT APTT D-Dimer Heparin Anti-Xa Level 0.73 H ABG pH POC ABG pCO2 POC ABG pO2 ABG pO2 ABG Hemoglobin ABG Oxyhemoglobin ABG Sodium ABG Potassium ABG Chloride ABG Glucose Carboxyhemoglobin Sodium Potassium Chloride Carbon Dioxide BUN Creatinine Glucose POC Glucose 164 H Lactic Acid Calcium Ferritin AST ALT Alkaline Phosphatase Lactate Dehydrogenase Troponin T C-Reactive Protein 28.90 H Total Protein Albumin HDL Cholesterol Arterial Blood Glucose Arterial Blood Ionized Calcium Urine WBC (Auto) 06/07/21 06/08/21 06/08/21 23:15 04:25 04:25 WBC 15.8 H RBC 2.58 L Hgb 8.6 L Hct 25.7 L MCV 100 H MCH 33 H MCHC RDW Gregory # (Auto) Seg Neutrophils % Seg Neuts % (Manual) 76.0 H Lymphocytes % (Manual) 6.0 L Monocytes % (Manual) 8.0 H Seg Neutrophils # Seg Neutrophils # Man 12.0 H Lymphocytes # (Manual) 0.9 L Monocytes # (Manual) 1.3 H PT APTT D-Dimer Heparin Anti-Xa Level ABG pH POC ABG pCO2 POC ABG pO2 ABG pO2 ABG Hemoglobin ABG Oxyhemoglobin ABG Sodium ABG Potassium ABG Chloride ABG Glucose Carboxyhemoglobin Sodium Potassium Chloride Carbon Dioxide BUN 65 H Creatinine Glucose 205 H POC Glucose 236 H Lactic Acid Calcium Ferritin AST ALT Alkaline Phosphatase Lactate Dehydrogenase Troponin T C-Reactive Protein Total Protein Albumin HDL Cholesterol Arterial Blood Glucose Arterial Blood Ionized Calcium Urine WBC (Auto) 06/08/21 06/08/21 05:36 11:18 WBC RBC Hgb Hct MCV MCH MCHC RDW Gregory # (Auto) Seg Neutrophils % Seg Neuts % (Manual) Lymphocytes % (Manual) Monocytes % (Manual) Seg Neutrophils # Seg Neutrophils # Man Lymphocytes # (Manual) Monocytes # (Manual) PT APTT D-Dimer Heparin Anti-Xa Level ABG pH POC ABG pCO2 POC ABG pO2 ABG pO2 ABG Hemoglobin ABG Oxyhemoglobin ABG Sodium ABG Potassium ABG Chloride ABG Glucose Carboxyhemoglobin Sodium Potassium Chloride Carbon Dioxide BUN Creatinine Glucose POC Glucose 185 H 203 H Lactic Acid Calcium Ferritin AST ALT Alkaline Phosphatase Lactate Dehydrogenase Troponin T C-Reactive Protein Total Protein Albumin HDL Cholesterol Arterial Blood Glucose Arterial Blood Ionized Calcium Urine WBC (Auto) Allied health notes reviewed: nursing
--- NOTE | 2021-06-08 16:44 | Progress Note ---
Assessment and Plan Assessment and plan: 65-year-old female with PmHx of nonepileptic spells, PTSD, closed head injury, hypertension, diabetes, CAD, who came in s/p cardiac arrest Hospital Course to Date: 06/05/21- Patient remains ETT and on vent support. Off sedation with some improvement in neuro status, but is not following commands. Patient is tolerating SBT trial this am, still on the heparin gtt. AM labs is pending. Patient is still hyperglycemic, increased Qhs lantus. Continue supportive care. 06/06/21- Patient is intubated and on the vent. No longer on sedation, awake but unresponsive, tolerating SBT. Hyperglycemia this am, X1 dose of kayaxalate orderd. Persistent hyperglycemia, insulin adjusted. Continue to monitor electrolytes, repeat BMP this afternoon and am labs ordered. 06/07/21- Patient remains intubated and on the vent. Neuro status is unchanged, spontaneously open yes but is not following commands. SBT trial again, plan to place back on a rate overnight. Leukocytosis noted from this morning lab, stat procalc and CRP ordered, d/w CCM no abx at this time. K 5.4 today, kayalalxate given. Continue to monitor leukocytosis and electrolytes. Am labs ordered 06/08/21- Patient remains intubated and on the vent with no significant change in her neuro status. Patient with no BM in 7days, abdominal soft with positive bowel sounds, colace added and PRN ducolax Supp PRN. Continue to monitor leukocytosis and electrolytes, am labs ordered. Plan for trach and PEG, surgery consulted. 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 - Per Neuro 05/29 EEG no sign of seizures - Patient is off sedation, open eyes spontaneously, pupils reactive, with +gag and cough. - Not following commands, no movement to stimuli - Continue Keppra and PRN ativan for seizure - Continue Supportive care #CV: s/p Cardiac Arrest #AFIB with RVR- resolved #Hypertension - Remains SR on the monitor - Normotensive - Continue antihypertensives: Labetalol, Hydralazine, valsartan, & Doxazosin - PRN hydralazine for SBP> 160 - Continue AC- Heparin gtt per protocol - Cardio is following #Resp.: Acute Hypoxemic Respitaroy Failure s/p cardiac Arrest #Bilateral Lower Lobe Infiltrates- improved - 05/25 ETT- Vent setting: PRVC- 30%,8,12,400 - 05/29 CXR- improved lung aeration - Patient is tolerating breathing trial, continue daily SBT - ABG per [facility] - F/U CXR in the am - Continue supplemental O2 for SPO2 goal>90% - D/w [facility] rec Trach and PEG-Family at bedside [facility] discussed plan with family - [facility] spoke with Patient's son- Plan for Trach and PEG - Surgery consulted - Case management for LTACH placement #GI: Abdominal distention possibly due to Constipation #Vomitting- resolved - last documented BM 06/01 - 06/03 KUB showed no sign. abnormality - Bowel Regimen- senokot, Miralax - Added Colace, and PRN Ducolax supp - TF at goal - Continue PPI- pecid #: Hyperkalemia-improved - 06/06 K 5.7; X1 dose of kayexalate via NGT - 06/08 K 4.5 today - Purewick in placed - Continue strict I&Os - Continue to monitor renal function and electrolytes, am labs ordered #ID: Leukocytosis #Sepsis- resolved #Bilateral Lower Lobe Infiltrates- improved - 05/25 Bcultx2-neg; 05/25 Tracheal aspirate-neg; 05/25 Urine cult- neg - 05/29 CXR- improved lung aeration - WBCs trending down; 06/06 Wbcs 15.7 06/07 Wbcs 21.5 - Leukocytosis down trending 15.8 today - 06/07 CRP 28.90 and procal 0.36 - Afebrile TMAX 99.6, not on pressors - d/w [facility] no abx at this time. - Continue to monitor- AM labs ordered #Endo: Hyperglycemia; H/o DM - Remains hyperglycemic - On high dose SSI Q6hrs - increased Lantus to 25units- Will reassess in the am #DVT prophylaxis - SCDs to bilateral lower extremities while in bed - Continue AC- heparin gtt The high probability of a clinically significant, sudden or life threatening deterioration of the [neuro, Pulmo, GI, Endo] system(s) required my full and direct attention, intervention and personal management. The aggregate critical care time was [60] minutes. This time is in addition to time spent performing reported procedures but includes the following: [x] Data Review and interpretation [x] Patient assessment and monitoring of vital signs [x] Documentation [x] Medication orders and management I saw and evaluated the patient. Discussed with the nurse practitioner and agree with their findings and plan as documented in this note. Disposition Plan: ICU Total Time Spent with Patient (Minutes): 60 History Interval history: Patient seen and examined at the bedside. Remains on vent, tolerating SBT trial. Awake and opening eyes spontaneously. No significant events overnight Hospitalist Physical - Constitutional Vitals: Temp Pulse Resp BP Pulse Ox 98.3 F 86 16 154/65 98 06/08/21 16:12 06/08/21 16:35 06/08/21 16:00 06/08/21 16:35 06/08/21 16:35 General appearance: Present: no acute distress - EENT Eyes: Present: PERRL - Respiratory Respiratory effort: normal Respiratory: bilateral: diminished - Cardiovascular Rhythm: regular Heart Sounds: Present: S1 & S2 - Extremities Extremities: pulses intact, pulses symmetrical Extremity abnormal: edema - Peripheral Assessment Generalized Edema Type: Non-pitting Edema Degree: 1+ Capillary Refill: < 3 seconds Skin Temperature: Warm Peripheral Pulses: within normal limits - Abdominal General gastrointestinal: soft, non-tender, normal bowel sounds HEART Score - HEART Score Troponin: Troponin T 0.226 ng/mL (0.00-0.029) H* D 05/25/21 15:19 Results - Labs CBC & Chem 7: 06/08/21 04:25 06/08/21 04:25 Labs: Laboratory Last Values WBC 15.8 K/mm3 (4.5-11.0) H 06/08/21 04:25 RBC 2.58 M/mm3 (3.65-5.03) L 06/08/21 04:25 Hgb 8.6 gm/dl (10.1-14.3) L 06/08/21 04:25 Hct 25.7 % (30.3-42.9) L 06/08/21 04:25 MCV 100 fl (79-97) H 06/08/21 04:25 MCH 33 pg (28-32) H 06/08/21 04:25 MCHC 33 % (30-34) 06/08/21 04:25 RDW 15.2 % (13.2-15.2) 06/08/21 04:25 Plt Count 298 K/mm3 (140-440) 06/08/21 04:25 Lymph % (Auto) 14.3 % (13.4-35.0) 05/28/21 04:00 [place] % (Auto) 6.9 % (0.0-7.3) 05/28/21 04:00 Eos % (Auto) 0.1 % (0.0-4.3) 05/28/21 04:00 Baso % (Auto) 0.5 % (0.0-1.8) 05/28/21 04:00 Lymph # (Auto) 1.9 K/mm3 (1.2-5.4) 05/28/21 04:00 [place] # (Auto) 0.9 K/mm3 (0.0-0.8) H 05/28/21 04:00 Eos # (Auto) 0.0 K/mm3 (0.0-0.4) 05/28/21 04:00 Baso # (Auto) 0.1 K/mm3 (0.0-0.1) 05/28/21 04:00 Add Manual Diff Complete 06/08/21 04:25 Total Counted 100 06/08/21 04:25 Seg Neutrophils % 78.2 % (40.0-70.0) H 05/28/21 04:00 Seg Neuts % (Manual) 76.0 % (40.0-70.0) H 06/08/21 04:25 Band Neutrophils % 4.0 % 06/08/21 04:25 Lymphocytes % (Manual) 6.0 % (13.4-35.0) L 06/08/21 04:25 Monocytes % (Manual) 8.0 % (0.0-7.3) H 06/08/21 04:25 Eosinophils % (Manual) 1.0 % (0.0-4.3) 06/08/21 04:25 Metamyelocytes % 3.0 % 06/08/21 04:25 Myelocytes % 2.0 % 06/08/21 04:25 Nucleated RBC % Not Reportable 06/08/21 04:25 Seg Neutrophils # 10.6 K/mm3 (1.8-7.7) H 05/28/21 04:00 Seg Neutrophils # Man 12.0 K/mm3 (1.8-7.7) H 06/08/21 04:25 Band Neutrophils # 0.6 K/mm3 06/08/21 04:25 Lymphocytes # (Manual) 0.9 K/mm3 (1.2-5.4) L 06/08/21 04:25 Abs React Lymphs (Man) 0.0 K/mm3 06/08/21 04:25 Monocytes # (Manual) 1.3 K/mm3 (0.0-0.8) H 06/08/21 04:25 Eosinophils # (Manual) 0.2 K/mm3 (0.0-0.4) 06/08/21 04:25 Basophils # (Manual) 0.0 K/mm3 (0.0-0.1) 06/08/21 04:25 Metamyelocytes # 0.5 K/mm3 06/08/21 04:25 Myelocytes # 0.3 K/mm3 06/08/21 04:25 Promyelocytes # 0.0 K/mm3 06/08/21 04:25 Blast Cells # 0.0 K/mm3 06/08/21 04:25 WBC Morphology Not Reportable 06/08/21 04:25 Hypersegmented Neuts Not Reportable 06/08/21 04:25 Hyposegmented Neuts Not Reportable 06/08/21 04:25 Hypogranular Neuts Not Reportable 06/08/21 04:25 Smudge Cells Not Reportable 06/08/21 04:25 Toxic Granulation Not Reportable 06/08/21 04:25 Toxic Vacuolation Not Reportable 06/08/21 04:25 Dohle Bodies Not Reportable 06/08/21 04:25 Pelger-Huet Anomaly Not Reportable 06/08/21 04:25 Peter Rods Not Reportable 06/08/21 04:25 Platelet Estimate Consistent w auto 06/08/21 04:25 Clumped Platelets Not Reportable 06/08/21 04:25 Plt Clumps, EDTA Not Reportable 06/08/21 04:25 Large Platelets Not Reportable 06/08/21 04:25 Giant Platelets Not Reportable 06/08/21 04:25 Platelet Satelliting Not Reportable 06/08/21 04:25 Plt Morphology Comment Not Reportable 06/08/21 04:25 RBC Morphology Not Reportable 06/08/21 04:25 Dimorphic RBCs Not Reportable 06/08/21 04:25 Polychromasia Not Reportable 06/08/21 04:25 Hypochromasia Not Reportable 06/08/21 04:25 Poikilocytosis Not Reportable 06/08/21 04:25 Anisocytosis Not Reportable 06/08/21 04:25 Microcytosis Not Reportable 06/08/21 04:25 Macrocytosis Not Reportable 06/08/21 04:25 Spherocytes Not Reportable 06/08/21 04:25 Pappenheimer Bodies Not Reportable 06/08/21 04:25 Sickle Cells Not Reportable 06/08/21 04:25 Target Cells Not Reportable 06/08/21 04:25 Tear Drop Cells Not Reportable 06/08/21 04:25 Ovalocytes Not Reportable 06/08/21 04:25 Helmet Cells Not Reportable 06/08/21 04:25 [place] Bodies Not Reportable 06/08/21 04:25 [place] Rings Not Reportable 06/08/21 04:25 [place] Cells Not Reportable 06/08/21 04:25 Bite Cells Not Reportable 06/08/21 04:25 Crenated Cell Not Reportable 06/08/21 04:25 Elliptocytes Not Reportable 06/08/21 04:25 Acanthocytes (Spur) Not Reportable 06/08/21 04:25 Rouleaux Not Reportable 06/08/21 04:25 Hemoglobin C Crystals Not Reportable 06/08/21 04:25 Schistocytes Not Reportable 06/08/21 04:25 Malaria parasites Not Reportable 06/08/21 04:25 Shravan Bodies Not Reportable 06/08/21 04:25 Hem Pathologist Commnt No 06/08/21 04:25 PT 15.0 Sec. (12.2-14.9) H 05/25/21 09:21 INR 1.13 (0.87-1.13) 05/25/21 09:21 APTT 72.2 Sec. (24.2-36.6) H* 06/05/21 12:20 D-Dimer > 10116 ng/mlDDU (0-234) H 05/25/21 09:21 Heparin Anti-Xa Level 0.56 U.I./ml (0.3-0.7) 06/08/21 04:25 ABG pH 7.481 (7.320-7.450) H 06/02/21 04:13 POC ABG pCO2 36.9 mmHg (32.0-48.0) 06/02/21 04:13 ABG pCO2 30.3 mm Hg 05/29/21 05:28 POC ABG pO2 80.0 mmHg (83-108) L 06/02/21 04:13 ABG pO2 96.2 mm Hg (80.0-90.0) H 05/29/21 05:28 POC ABG HCO3 26.9 06/02/21 04:13 ABG HCO3 24.0 mmol/L (20.0-26.0) 05/29/21 05:28 ABG O2 Saturation 95.7 (0-100) 06/02/21 04:13 ABG O2 Content 10.3 (0.0-44) 05/29/21 05:28 POC ABG Base Excess 3.4 06/02/21 04:13 ABG Base Excess 1.2 mmol/L (-2.0-3.0) 05/29/21 05:28 ABG Hemoglobin 11.1 (12.0-17.5) L 06/02/21 04:13 ABG Oxyhemoglobin 95.2 (94-98) 06/02/21 04:13 ABG Carboxyhemoglobin 1.6 % (0.0-5.0) 05/29/21 05:28 ABG Methemoglobin 0.3 (0.0-1.5) 06/02/21 04:13 ABG Sodium 131.9 mmol/L (136.0-145.0) L 06/02/21 04:13 ABG Potassium 3.8 mmol/L (3.40-4.50) 06/02/21 04:13 ABG Chloride 98.0 mmol/L (98-107) 06/02/21 04:13 ABG Glucose 231 mg/dL (65-95) H 06/02/21 04:13 Oxyhemoglobin 96.0 % (95.0-99.0) 05/29/21 05:28 Carboxyhemoglobin 0.2 (0.5-1.5) L 06/02/21 04:13 FiO2 30 % 05/29/21 05:28 FiO2 % 30.0 06/02/21 04:13 Sodium 139 mmol/L (137-145) 06/08/21 04:25 Potassium 4.5 mmol/L (3.6-5.0) 06/08/21 04:25 Chloride 98.2 mmol/L (98-107) 06/08/21 04:25 Carbon Dioxide 30 mmol/L (22-30) 06/08/21 04:25 Anion Gap 15 mmol/L 06/08/21 04:25 BUN 65 mg/dL (7-17) H 06/08/21 04:25 Creatinine 1.1 mg/dL (0.6-1.2) 06/08/21 04:25 Estimated GFR 60 ml/min 06/08/21 04:25 BUN/Creatinine Ratio 59 % 06/08/21 04:25 Glucose 205 mg/dL (65-100) H 06/08/21 04:25 POC Glucose 203 mg/dL (70-105) H 06/08/21 11:18 Lactic Acid 2.30 mmol/L (0.7-2.0) H* 05/26/21 05:49 Calcium 8.5 mg/dL (8.4-10.2) 06/08/21 04:25 Ferritin 321.6 ng/mL (10.0-200.0) H 05/25/21 09:21 Total Bilirubin 0.30 mg/dL (0.1-1.2) 06/06/21 04:57 Direct Bilirubin < 0.2 mg/dL (0-0.2) 05/25/21 09:21 Indirect Bilirubin 0.2 mg/dL 05/25/21 09:21 AST 99 units/L (5-40) H 06/06/21 04:57 ALT 136 units/L (7-56) H 06/06/21 04:57 Alkaline Phosphatase 312 units/L (35-129) H 06/06/21 04:57 Lactate Dehydrogenase 445 units/L (91-180) H 05/25/21 09:21 Troponin T 0.226 ng/mL (0.00-0.029) H* D 05/25/21 15:19 C-Reactive Protein 28.90 mg/dL (0.00-1.30) H 06/07/21 14:52 NT-Pro-B Natriuret Pep 173.2 pg/mL (0-900) 05/25/21 09:21 Total Protein 6.1 g/dL (6.3-8.2) L 06/06/21 04:57 Albumin 3.1 g/dL (3.9-5) L 06/06/21 04:57 Albumin/Globulin Ratio 1.0 % 06/06/21 04:57 Triglycerides 124 mg/dL (2-149) 05/30/21 11:19 Cholesterol 198 mg/dL (50-199) 05/25/21 15:19 LDL Cholesterol Direct 80 mg/dL (50-130) 05/25/21 15:19 HDL Cholesterol 64 mg/dL (40-59) H 05/25/21 15:19 Cholesterol/HDL Ratio 3.09 % 05/25/21 15:19 Procalcitonin 0.36 ng/mL (<0.15) 06/07/21 14:52 Arterial Blood Glucose 231 mg/dL (65-95) H 06/02/21 04:13 Arterial Blood Ionized Calcium 4.6 mg/dL (4.6-5.3) 06/02/21 04:13 Urine Color Straw (Yellow) 05/25/21 10:42 Urine Turbidity Clear (Clear) 05/25/21 10:42 Urine pH 6.0 (5.0-7.0) 05/25/21 10:42 Ur Specific [place] 1.007 (1.003-1.030) 05/25/21 10:42 Urine Protein 100 mg/dl mg/dL (Negative) 05/25/21 10:42 Urine Glucose (UA) >=500 mg/dL (Negative) 05/25/21 10:42 Urine Ketones Neg mg/dL (Negative) 05/25/21 10:42 Urine Blood Mod (Negative) 05/25/21 10:42 Urine Nitrite Neg (Negative) 05/25/21 10:42 Ur Reducing Substances Not Reportable 05/25/21 10:42 Urine Bilirubin Neg (Negative) 05/25/21 10:42 Urine Ictotest Not Reportable 05/25/21 10:42 Urine Urobilinogen < 2.0 mg/dL (<2.0) 05/25/21 10:42 Ur Leukocyte Esterase Neg (Negative) 05/25/21 10:42 Urine WBC (Auto) 11.0 /HPF (0.0-6.0) H 05/25/21 10:42 Urine RBC (Auto) 1.0 /HPF (0.0-6.0) 05/25/21 10:42 U Epithel Cells (Auto) < 1.0 /HPF (0-13.0) 05/25/21 10:42 Urine Bacteria (Auto) 4+ /HPF (Negative) 05/25/21 10:42 Urine Mucus Few /HPF 05/25/21 10:42 Coronavirus (PCR) Negative (Negative) 05/30/21 08:15 Blood Type O POSITIVE 05/25/21 14:07 Antibody Screen Negative 05/25/21 14:07 Tan/IV: Voiding Method External Female Catheter Active Medications - Current Medications Current Medications: Generic Name Dose Route Start Last Admin Trade Name Freq PRN Reason Stop Dose Admin Acetaminophen 650 mg 05/25/21 13:48 05/28/21 04:14 Acetaminophen 325 Mg Tab PO 650 mg Q6H PRN Administration Pain MILD(1-3)/Fever >100.5/SOTOMAYOR Lipase/Protease/Amylase 1 each 05/26/21 10:00 Lipase 10,500/Protease 25,000/Amylase 43,750 (Units) Dr Munguia FEEDTUBE PRN PRN For Clogged Feeding Tube Bisacodyl 10 mg 06/08/21 10:00 Bisacodyl 10 Mg Rect Supp NC QDAY PRN Constipation Dextrose 50 ml 05/28/21 14:28 Dextrose 50% In Water (25gm) 50 Ml Syringe IV Q30MIN PRN Hypoglycemia Protocol Docusate Sodium 100 mg 06/08/21 10:00 06/08/21 09:58 Docusate Sodium 100 Mg/10 Ml Oral Liqd PO 100 mg BID ABDIRAHMAN Administration Doxazosin Mesylate 2 mg 06/01/21 12:00 06/08/21 09:42 Doxazosin 1 Mg Tab PO 2 mg BID ABDIRAHMAN Administration Famotidine 20 mg 05/29/21 10:00 06/08/21 09:43 Famotidine 20 Mg Tab FEEDTUBE 20 mg BID ABDIRAHMAN Administration Glycopyrrolate 2 mg 06/01/21 09:00 06/08/21 13:01 Glycopyrrolate 2 Mg Tab PO 2 mg TID ABDIRAHMAN Administration Heparin Sodium (Porcine) 2,700 unit 05/25/21 13:41 05/30/21 17:46 Heparin 10,000 Units/10 Ml Vial 40 unit/kg (2700 unit) 2,520 unit IV Administration Q6H PRN Anti-Xa Assay < 0.1 units/ml Hydralazine HCl 10 mg 06/01/21 11:43 06/07/21 17:23 Hydralazine 20 Mg/1 Ml Inj IV 10 mg Q4HR PRN Administration SBP >160 Hydralazine HCl 50 mg 06/03/21 22:00 06/08/21 13:01 Hydralazine 25 Mg Tab PO 50 mg Q8HR ABDIRAHMAN Administration Hydrophilic Ointment 1 applic 05/25/21 19:04 Lip Therapy Vaseline TP Q2HR PRN Dry Lips Heparin Sodium/Sodium Chloride 25,000 unit in 500 mls @ 20 mls/hr 05/25/21 15:00 06/08/21 06:09 Heparin/ 0.45% Nacl-25,000 Unit/500 Ml IV 1,150 units/hr TITRATE ABDIRAHMAN 23 mls/hr Titration Protocol 1,000 UNITS/HR Insulin Glargine 25 units 06/09/21 10:00 Insulin Glargine 100 Units/Ml SUB-Q DAILY [facility] Insulin Human Lispro 0 unit 05/29/21 12:00 06/08/21 13:00 Insulin Lispro 100 Unit/Ml SUB-Q 4 unit Q6HR ABDIRAHMAN Administration Protocol Labetalol HCl 300 mg 06/03/21 13:40 06/08/21 09:43 Labetalol 100 Mg Tab PO 300 mg BID ABDIRAHMAN Administration Levetiracetam 250 mg 06/01/21 22:00 06/08/21 09:41 Levetiracetam 500 Mg/5 Ml Oral Liqd FEEDTUBE 250 mg Q12HR [facility] Administration Lorazepam 2 mg 05/25/21 19:46 05/31/21 03:44 Lorazepam 2 Mg/Ml Vial IV 2 mg ONCE PRN Administration Seizure Multi-Ingred Cream/Lotion/Oil/Oint 1 applic 05/25/21 19:04 Mineral Oil/Petrolatum, White Ophth Oint 3.5 Gm OU Q4HR PRN Dry Eye(s) Polyethylene Glycol 17 gm 06/05/21 11:00 06/08/21 09:41 Polyethylene Glycol 3350 17 Gm Powder PO 17 gm QDAY ABDIRAHMAN Administration Senna/Docusate Sodium 1 tab 05/25/21 22:00 06/08/21 09:42 Sennosides/Docusate Sodium 8.6/50 Mg Tab FEEDTUBE 1 tab BID ABDIRAHMAN Administration Simple Syrup 15 ml 05/26/21 10:00 Simple Syrup 15 Ml FEEDTUBE PRN PRN Hypoglycemia Simple Syrup 30 ml 05/26/21 10:00 Simple Syrup 15 Ml FEEDTUBE PRN PRN Hypoglycemia Sodium Bicarbonate 325 mg 05/26/21 10:00 Sodium Bicarbonate 325 Mg Tab FEEDTUBE PRN PRN For Clogged Feeding Tube Sodium Chloride 10 ml 05/25/21 22:00 06/08/21 09:44 Sodium Chloride 0.9% 10 Ml Flush Syringe IV 10 ml BID ABDIRAHMAN Administration Sodium Chloride 10 ml 05/25/21 13:48 06/04/21 03:57 Sodium Chloride 0.9% 10 Ml Flush Syringe IV 10 ml PRN PRN Administration LINE FLUSH Valsartan 160 mg 06/01/21 12:00 06/08/21 09:41 Valsartan 160mg Tab PO 160 mg BID ABDIRAHMAN Administration Nutrition/Malnutrition Assess - Dietary Evaluation Nutrition/Malnutrition Findings: Nutrition Notes Start: 05/26/21 09:00 Freq: Status: Active Protocol: Document 06/07/21 12:09 GB (Rec: 06/07/21 12:24 GB [email or web address]) Nutrition Notes Initial or Follow up Reassessment Current Diagnosis COPD,Diabetes,Sepsis, Hypertension,Respiratory Failure Other Pertinent Diagnosis cardiac arrest, seizure disorder Current Diet NPO, Tube feeding Vital 1.2 @ 50 Labs/Tests 06/07: K 5.4, BUN 55, (glucose 178 -showing improvement) Pertinent Medications NaCl, Na Polystyrene Sulfaonate Height 5 ft 4 in Weight 63 kg [place] Body Weight (kg) 54.54 BMI 23.8 Weight change and time frame -6.6% since admission Weight Status Appropriate Subjective/Other Information Ventilation continues, TF continues, Son(s) approved to visit today Percent of energy/protein needs met: TF goal rate meets 75% or greater of estimated energy needs Burn Absent Trauma Absent GI Symptoms None Food Allergy No Current % PO Other Minimum of two criteria No #1 Nutrition Diagnosis Inadequate oral intake Comments: 06/02: On vent. TF continues. 06/07: Ventilation continues, TF continues. Etiology ARF As Evidenced by Signs and Symptoms pt on vent and unable to consume PO Diagnosis Progress(for reassessment Continues documentation) Is patient on ventilator? Yes Is Patient Ambulatory and/or Out of Bed No REE-([facility]-confined to bed) 1385.676 Kcal/Kg value to use for calculation 23 Approximate Energy Requirements Using 1449 kcal/Kg Calculation Used for Recommendations Kcal/kg Additional Notes Protein: (1-1.5g/kg @63kg) 63- 95g Fluid: 1 ml/kcal or per MD Nutrition Intervention Change Diet Order: Continue NPO Nutrition Support: Vital AF 1.2 at 50 ml/hr Flush 75 ml q4h 06/02: continues 06/07: continues Kcal 1,440 Protein (gm) 90 Fat (gm) 65 Fluid (mL) 973 Goal #1 Meet 75% or greater of protein and energy needs via TF Follow-Up By: 06/14/21 Additional Comments son(s) approved to visit mom today. Pt trach/PEG
--- NOTE | 2021-06-08 17:39 | Consultation ---
History of Present Illness Consult date: 06/08/21 Chief complaint: Chronic respiratory failure - History of present illness History of present illness: 65 yo female with chronic respiratory failure after a cardiac arrest. Past History Past Medical History: CAD, hypertension, seizures, other (See HPI) Past Surgical History: Other (Cardiac stent placement, bladder surgery.) Social history: , smoking. denies: alcohol abuse, prescription drug abuse Family history: diabetes, hypertension Medications and Allergies Allergies Allergy/AdvReac Type Severity Reaction Status Date / Time No Known Allergies Allergy Unverified 05/11/20 05:28 Home Medications Medication Instructions Recorded Confirmed Last Taken Type Aspirin EC [Halfprin EC] 81 mg PO QDAY #30 tablet. 05/16/20 05/29/21 02/26/21 22:00 Rx AtorvaSTATin [Lipitor] 40 mg PO QHS #60 tablet 05/16/20 05/29/21 02/26/21 22:00 Rx Citalopram [Celexa] 20 mg PO QDAY #60 tablet 05/16/20 05/29/21 02/26/21 22:00 Rx Metoprolol [Lopressor TAB] 25 mg PO BID #120 tablet 05/16/20 05/29/21 02/26/21 22:00 Rx Valsartan [Diovan] 80 mg PO BID #60 tablet 05/16/20 05/29/21 02/26/21 Rx amLODIPine 10 mg PO DAILY #60 tablet 05/16/20 05/29/21 02/26/21 22:00 Rx hydrALAZINE [Apresoline TAB] 50 mg PO Q8HR #90 tablet 03/01/21 05/29/21 Unknown Rx levETIRAcetam [Keppra TAB] 500 mg PO BID #60 tablet 03/01/21 05/29/21 Unknown Rx Active Meds: Active Medications Acetaminophen (Acetaminophen 325 Mg Tab) 650 mg PO Q6H PRN PRN Reason: Pain MILD(1-3)/Fever >100.5/SOTOMAYOR Last Admin: 05/28/21 04:14 Dose: 650 mg Documented by: Lipase/Protease/Amylase (Lipase 10,500/Protease 25,000/Amylase 43,750 (Units) Dr Munguia) 1 each FEEDTUBE PRN PRN PRN Reason: For Clogged Feeding Tube Bisacodyl (Bisacodyl 10 Mg Rect Supp) 10 mg OR QDAY PRN PRN Reason: Constipation Dextrose (Dextrose 50% In Water (25gm) 50 Ml Syringe) 50 ml IV Q30MIN PRN; Protocol PRN Reason: Hypoglycemia Docusate Sodium (Docusate Sodium 100 Mg/10 Ml Oral Liqd) 100 mg PO BID [facility] Last Admin: 06/08/21 09:58 Dose: 100 mg Documented by: Doxazosin Mesylate (Doxazosin 1 Mg Tab) 2 mg PO BID [facility] Last Admin: 06/08/21 09:42 Dose: 2 mg Documented by: Famotidine (Famotidine 20 Mg Tab) 20 mg FEEDTUBE BID [facility] Last Admin: 06/08/21 09:43 Dose: 20 mg Documented by: Glycopyrrolate (Glycopyrrolate 2 Mg Tab) 2 mg PO TID [facility] Last Admin: 06/08/21 13:01 Dose: 2 mg Documented by: Heparin Sodium (Porcine) (Heparin 10,000 Units/10 Ml Vial) 2,700 unit 40 unit/kg (2700 unit) IV Q6H PRN PRN Reason: Anti-Xa Assay < 0.1 units/ml Last Admin: 05/30/21 17:46 Dose: 2,520 unit Documented by: Hydralazine HCl (Hydralazine 20 Mg/1 Ml Inj) 10 mg IV Q4HR PRN PRN Reason: SBP >160 Last Admin: 06/07/21 17:23 Dose: 10 mg Documented by: Hydralazine HCl (Hydralazine 25 Mg Tab) 50 mg PO Q8HR [facility] Last Admin: 06/08/21 13:01 Dose: 50 mg Documented by: Hydrophilic Ointment (Lip Therapy Vaseline) 1 applic TP Q2HR PRN PRN Reason: Dry Lips Heparin Sodium/Sodium Chloride (Heparin/ 0.45% Nacl-25,000 Unit/500 Ml) 25,000 unit in 500 mls @ 20 mls/hr IV TITRATE [facility]; Protocol Last Titration: 06/08/21 06:09 Dose: 1,150 units/hr, 23 mls/hr Documented by: Insulin Glargine (Insulin Glargine 100 Units/Ml) 25 units SUB-Q DAILY [facility] Insulin Human Lispro (Insulin Lispro 100 Unit/Ml) 0 unit SUB-Q Q6HR [facility]; Protocol Last Admin: 06/08/21 13:00 Dose: 4 unit Documented by: Labetalol HCl (Labetalol 100 Mg Tab) 300 mg PO BID [facility] Last Admin: 06/08/21 09:43 Dose: 300 mg Documented by: Levetiracetam (Levetiracetam 500 Mg/5 Ml Oral Liqd) 250 mg FEEDTUBE Q12HR [facility] Last Admin: 06/08/21 09:41 Dose: 250 mg Documented by: Lorazepam (Lorazepam 2 Mg/Ml Vial) 2 mg IV ONCE PRN PRN Reason: Seizure Last Admin: 05/31/21 03:44 Dose: 2 mg Documented by: Multi-Ingred Cream/Lotion/Oil/Oint (Mineral Oil/Petrolatum, White Ophth Oint 3.5 Gm) 1 applic OU Q4HR PRN PRN Reason: Dry Eye(s) Polyethylene Glycol (Polyethylene Glycol 3350 17 Gm Powder) 17 gm PO QDAY [facility] Last Admin: 06/08/21 09:41 Dose: 17 gm Documented by: Senna/Docusate Sodium (Sennosides/Docusate Sodium 8.6/50 Mg Tab) 1 tab FEEDTUBE BID [facility] Last Admin: 06/08/21 09:42 Dose: 1 tab Documented by: Simple Syrup (Simple Syrup 15 Ml) 15 ml FEEDTUBE PRN PRN PRN Reason: Hypoglycemia Simple Syrup (Simple Syrup 15 Ml) 30 ml FEEDTUBE PRN PRN PRN Reason: Hypoglycemia Sodium Bicarbonate (Sodium Bicarbonate 325 Mg Tab) 325 mg FEEDTUBE PRN PRN PRN Reason: For Clogged Feeding Tube Sodium Chloride (Sodium Chloride 0.9% 10 Ml Flush Syringe) 10 ml IV BID [facility] Last Admin: 06/08/21 09:44 Dose: 10 ml Documented by: Sodium Chloride (Sodium Chloride 0.9% 10 Ml Flush Syringe) 10 ml IV PRN PRN PRN Reason: LINE FLUSH Last Admin: 06/04/21 03:57 Dose: 10 ml Documented by: Valsartan (Valsartan 160mg Tab) 160 mg PO BID [facility] Last Admin: 06/08/21 09:41 Dose: 160 mg Documented by: Review of Systems ROS unobtainable: due to endotracheal tube Exam Vital Signs Resp 15 05/25/21 08:48 - General physical appearance Positive: well developed, well nourished, no distress - Eyes Positive: PERRL, normal occular movement - ENT Positive: normal pinna, normal nares, normal mucosa, no hearing loss, no congestion - Neck Positive: no masses, no bruits, trachea midline, no venous distension - Respiratory Positive: normal expansion, normal respiratory effort, clear to auscultation - Cardiovascular Rhythm: regular Heart Sounds: Present: S1 & S2. Absent: rub, click - Extremities Extremities: no ischemia, pulses symmetrical, No edema - Breasts Breasts: normal, no mass, no skin changes - Abdomen Abdomen: Present: soft, bowel sounds normal. Absent: tender, distended Hernia: none - Genitourinary Male Genitourinary: normal Female Genitourinary: normal - Integumentary no rash, no growths, no abnormal pigmentation Results - Labs 06/08/21 04:25 06/08/21 04:25 Abnormal lab results 06/07/21 06/07/21 06/07/21 Range/Units 17:45 20:43 23:15 WBC (4.5-11.0) K/mm3 RBC (3.65-5.03) M/mm3 Hgb (10.1-14.3) gm/dl Hct (30.3-42.9) % MCV (79-97) fl MCH (28-32) pg Seg Neuts % (Manual) (40.0-70.0) % Lymphocytes % (Manual) (13.4-35.0) % Monocytes % (Manual) (0.0-7.3) % Seg Neutrophils # Man (1.8-7.7) K/mm3 Lymphocytes # (Manual) (1.2-5.4) K/mm3 Monocytes # (Manual) (0.0-0.8) K/mm3 Heparin Anti-Xa Level 0.73 H (0.3-0.7) U.I./ml BUN (7-17) mg/dL Glucose (65-100) mg/dL POC Glucose 164 H 236 H (70-105) mg/dL 06/08/21 06/08/21 06/08/21 Range/Units 04:25 04:25 05:36 WBC 15.8 H (4.5-11.0) K/mm3 RBC 2.58 L (3.65-5.03) M/mm3 Hgb 8.6 L (10.1-14.3) gm/dl Hct 25.7 L (30.3-42.9) % MCV 100 H (79-97) fl MCH 33 H (28-32) pg Seg Neuts % (Manual) 76.0 H (40.0-70.0) % Lymphocytes % (Manual) 6.0 L (13.4-35.0) % Monocytes % (Manual) 8.0 H (0.0-7.3) % Seg Neutrophils # Man 12.0 H (1.8-7.7) K/mm3 Lymphocytes # (Manual) 0.9 L (1.2-5.4) K/mm3 Monocytes # (Manual) 1.3 H (0.0-0.8) K/mm3 Heparin Anti-Xa Level (0.3-0.7) U.I./ml BUN 65 H (7-17) mg/dL Glucose 205 H (65-100) mg/dL POC Glucose 185 H (70-105) mg/dL 06/08/21 Range/Units 11:18 WBC (4.5-11.0) K/mm3 RBC (3.65-5.03) M/mm3 Hgb (10.1-14.3) gm/dl Hct (30.3-42.9) % MCV (79-97) fl MCH (28-32) pg Seg Neuts % (Manual) (40.0-70.0) % Lymphocytes % (Manual) (13.4-35.0) % Monocytes % (Manual) (0.0-7.3) % Seg Neutrophils # Man (1.8-7.7) K/mm3 Lymphocytes # (Manual) (1.2-5.4) K/mm3 Monocytes # (Manual) (0.0-0.8) K/mm3 Heparin Anti-Xa Level (0.3-0.7) U.I./ml BUN (7-17) mg/dL Glucose (65-100) mg/dL POC Glucose 203 H (70-105) mg/dL Diabetes panel 06/08/21 Range/Units 04:25 Sodium 139 (137-145) mmol/L Potassium 4.5 (3.6-5.0) mmol/L Chloride 98.2 (98-107) mmol/L Carbon Dioxide 30 (22-30) mmol/L BUN 65 H (7-17) mg/dL Creatinine 1.1 (0.6-1.2) mg/dL Glucose 205 H (65-100) mg/dL Calcium 8.5 (8.4-10.2) mg/dL Calcium panel 06/08/21 Range/Units 04:25 Calcium 8.5 (8.4-10.2) mg/dL Pituitary panel 06/08/21 Range/Units 04:25 Sodium 139 (137-145) mmol/L Potassium 4.5 (3.6-5.0) mmol/L Chloride 98.2 (98-107) mmol/L Carbon Dioxide 30 (22-30) mmol/L BUN 65 H (7-17) mg/dL Creatinine 1.1 (0.6-1.2) mg/dL Glucose 205 H (65-100) mg/dL Calcium 8.5 (8.4-10.2) mg/dL Adrenal panel 06/08/21 Range/Units 04:25 Sodium 139 (137-145) mmol/L Potassium 4.5 (3.6-5.0) mmol/L Chloride 98.2 (98-107) mmol/L Carbon Dioxide 30 (22-30) mmol/L BUN 65 H (7-17) mg/dL Creatinine 1.1 (0.6-1.2) mg/dL Glucose 205 H (65-100) mg/dL Calcium 8.5 (8.4-10.2) mg/dL Assessment and Plan - Patient Problems (1) Anoxic brain injury Current Visit: Yes Status: Acute Plan to address problem: 1) Open tracheostomy and PEG tomorrow 2) Hold IV Heparin 4 hours before #1 3) NPO after MN
[2021-06-09] MEDS: INSULIN LISPRO 100 UNIT/ML SUB-Q SCH ×3 (05:45→18:17)
[2021-06-09 06:15] LABS: Hematocrit 25.2 % (30.3-42.9); Hemoglobin 8.5 gm/dl (10.1-14.3); Mean Corpuscular HGB Conc 34 % (30-34); Mean Corpuscular Volume 99 fl (79-97); Platelet Count 309 K/mm3 (140-440); Red Blood Count 2.54 M/mm3 (3.65-5.03); Red Cell Distribution Width 14.9 % (13.2-15.2)
[2021-06-09 06:21] LABS: INR 1.09 (0.87-1.13)
[2021-06-09 06:28] LABS: Calcium 8.5 mg/dL (8.4-10.2)
[2021-06-09] MEDS: hydrALAZINE 25 MG TAB PO SCH ×3 (06:49→21:58)
[2021-06-09] MEDS ORDERED: SODIUM POLYSTYRENE 15 GM/60 ML ORAL LIQD PO SCH (09:00)
[2021-06-09] MEDS ORDERED: INSULIN GLARGINE 100 UNITS/ML SUB-Q SCH (10:00)
[2021-06-09] MEDS: POLYETHYLENE GLYCOL 3350 17 GM POWDER PO SCH (10:14)
[2021-06-09] MEDS: levETIRAcetam 500 MG/5 ML ORAL LIQD FEEDTUBE SCH ×2 (10:14→21:57)
[2021-06-09] MEDS: VALSARTAN 160MG TAB PO SCH ×2 (10:15→21:57)
[2021-06-09] MEDS: SENNOSIDES/DOCUSATE SODIUM 8.6/50 MG TAB FEEDTUBE SCH ×2 (10:15→22:00)
[2021-06-09] MEDS: DOXAZOSIN 1 MG TAB PO SCH ×2 (10:15→21:58)
[2021-06-09] MEDS: DOCUSATE SODIUM 100 MG/10 ML ORAL LIQD PO SCH ×2 (10:15→22:00)
[2021-06-09] MEDS: GLYCOPYRROLATE 2 MG TAB PO SCH ×3 (10:15→20:56)
[2021-06-09] MEDS: FAMOTIDINE 20 MG TAB FEEDTUBE SCH ×2 (10:16→21:58)
--- NOTE | 2021-06-09 11:52 | Progress Note ---
Assessment and Plan Acute hypoxemic respiratory failure on MVS Cardiopulmonary arrest wtih ROSC Seizure disorder Sepsis Toxic metabolic encephalopathy, possible anoxia Atrial fibrillation with RVR Metabolic acidosis Bilateral lower lobe infiltrates - repeat CXR in am - LTAC evaluation - gentle hydration re: azotemia - continue care as below otherwise; - continue scopolamine for secretion control - continue Keppra as AED - daily SAT and SBT assessment as tolerated - continue to wean supplemental oxygen for target O2 sat's > 90% acutely - VAP bundle addressed - continue lung protective strategies - continue bronchodilators with pulmonary hygiene per RT - wean per pulmonary driven protocols otherwise - continue accuchecks with glycemic control per SSI (While critically ill target blood glucose of 140-180 mg/dL; avoid hypoglycemia) - sedation prn for target RASS 0 to -1 - avoid nephrotoxins, renally dose all medications - continue to avoid benzodiazepine's, reduce the possibility of delirium - AB's per ID rec's - prn analgesia per CPOT score - Maintenance of sleep-wake cycle, avoid delirium - continue enteral nutritional support at goal rate as tolerated - G.I. & VTE prophylaxis - PT/OT/ROM exercises - continue mobility protocols for pressure ulcer prophylaxis - Monitor hemodynamics closely - continue other care per attending / other consultants - discharge planning ongoing concurrently COVID SPECIFIC INTERVENTIONS - COVID-19 PCR negative .... Re-evaluate in am & prn CONDITION: CRITICAL PROGNOSIS: GUARDED CODE STATUS: FULL CODE The high probability of a clinically significant, sudden or life-threatening deterioration of the [respiratory, cardiovascular & neurologic] system(s) required my full and direct attention, intervention and personal management. The aggregate critical care time was [35] minutes without overlap. Time includes spent on; [x] Data Review and interpretation [x] Patient assessment and monitoring of vital signs [x] Documentation [x] Medication orders and management Subjective Date of service: 06/09/21 Principal diagnosis: Ac hypoxemic resp failure; Cardiac arrest; Seizures; Se psis; AMS; A-Fib RVR Interval history: Patient is seen today for: Acute hypoxemic respiratory failure; Cardiac arrest wtih ROSC; Seizure disorder; Sepsis; AMS; A-Fib with RVR Seen and examined at bedside; 24hour events reviewed; nursing and respiratory care staff consulted; no adverse overnight events reported to me; resting in bed; remains on MVS; s/p trach yesterday; on SBT and tolerating well; no emesis or overt aspiration; AMS is persistent Objective Vital Signs - 12hr 06/08/21 06/08/21 06/09/21 23:53 23:56 00:00 Temperature 99.1 F Pulse Rate 75 77 Respiratory 12 Rate Blood Pressure 113/50 135/51 O2 Sat by Pulse 100 100 Oximetry 06/09/21 06/09/21 06/09/21 00:16 00:30 00:45 Temperature Pulse Rate 80 90 81 Respiratory 14 16 14 Rate Blood Pressure 143/54 170/68 145/56 O2 Sat by Pulse 100 100 100 Oximetry 06/09/21 06/09/21 06/09/21 01:00 01:15 01:30 Temperature Pulse Rate 76 73 72 Respiratory 13 12 12 Rate Blood Pressure 144/53 123/47 123/48 O2 Sat by Pulse 99 99 100 Oximetry 06/09/21 06/09/21 06/09/21 01:45 02:00 02:15 Temperature Pulse Rate 71 80 79 Respiratory 12 14 13 Rate Blood Pressure 128/52 123/48 151/61 O2 Sat by Pulse 100 98 99 Oximetry 06/09/21 06/09/21 06/09/21 02:30 02:45 03:00 Temperature Pulse Rate 76 79 79 Respiratory 12 12 13 Rate Blood Pressure 148/57 154/60 146/57 O2 Sat by Pulse 99 98 99 Oximetry 06/09/21 06/09/21 06/09/21 03:15 03:27 03:30 Temperature 99.1 F Pulse Rate 79 75 Respiratory 14 17 Rate Blood Pressure 164/62 138/52 O2 Sat by Pulse 99 99 Oximetry 06/09/21 06/09/21 06/09/21 03:46 03:52 04:00 Temperature Pulse Rate 73 73 78 Respiratory 12 12 Rate Blood Pressure 125/51 125/51 116/59 O2 Sat by Pulse 99 99 100 Oximetry 06/09/21 06/09/21 06/09/21 04:16 04:30 04:45 Temperature Pulse Rate 78 74 72 Respiratory 18 11 L 12 Rate Blood Pressure 117/57 133/55 127/52 O2 Sat by Pulse 99 98 97 Oximetry 06/09/21 06/09/21 06/09/21 05:00 05:15 05:30 Temperature Pulse Rate 73 71 78 Respiratory 11 L 12 14 Rate Blood Pressure 127/52 137/51 144/58 O2 Sat by Pulse 97 100 100 Oximetry 06/09/21 06/09/21 06/09/21 05:45 06:00 06:15 Temperature Pulse Rate 77 77 80 Respiratory 12 12 28 H Rate Blood Pressure 141/56 154/58 141/57 O2 Sat by Pulse 98 100 99 Oximetry 06/09/21 06/09/21 06/09/21 06:30 06:49 07:31 Temperature 97.8 F Pulse Rate 73 67 Respiratory 12 Rate Blood Pressure 127/49 134/48 O2 Sat by Pulse 100 Oximetry 06/09/21 06/09/21 06/09/21 07:55 10:15 10:16 Temperature Pulse Rate 79 81 78 Respiratory 17 Rate Blood Pressure 114/47 149/58 174/78 O2 Sat by Pulse 99 Oximetry Constitutional: no acute distress, other (elderly female with mildly increased respiratory effort at rest on MVS) Eyes: non-icteric ENT: oropharynx moist, oropharyngeal exudate pre (clear), other (+ midline tracheostomy) Neck: supple, no lymphadenopathy Effort: mildly labored Ascultation: Bilateral: diminished breath sounds, rhonchi Percussion: Bilateral: not dull Cardiovascular: irregular rhythm, other (S1,S2) Gastrointestinal: normoactive bowel sounds, soft, non-tender, non-distended (protuberant), other (+ PEG tube) Integumentary: normal Extremities: no cyanosis, pulses normal, no ischemia or petechiae, other (Right femoral CVL) Neurologic: pupils equal and round, other (encephalopathic) Psychiatric: other (unable to assess) CBC and BMP: 06/09/21 05:20 06/09/21 05:20 ABG, PT/INR, D-dimer: ABG ABG pH 7.481 (7.320-7.450) H 06/02/21 04:13 POC ABG pCO2 36.9 mmHg (32.0-48.0) 06/02/21 04:13 ABG pCO2 30.3 mm Hg 05/29/21 05:28 POC ABG pO2 80.0 mmHg (83-108) L 06/02/21 04:13 ABG pO2 96.2 mm Hg (80.0-90.0) H 05/29/21 05:28 POC ABG HCO3 26.9 06/02/21 04:13 ABG O2 Saturation 95.7 (0-100) 06/02/21 04:13 PT/INR, D-dimer PT 14.6 Sec. (12.2-14.9) 06/09/21 05:20 INR 1.09 (0.87-1.13) 06/09/21 05:20 D-Dimer > 28322 ng/mlDDU (0-234) H 05/25/21 09:21 Abnormal lab findings: Abnormal Labs 05/25/21 05/25/21 05/25/21 09:07 09:21 09:21 WBC 17.1 H RBC Hgb Hct MCV 106 H MCH 33 H MCHC RDW 15.6 H [place] # (Auto) Seg Neutrophils % Seg Neuts % (Manual) Lymphocytes % (Manual) Monocytes % (Manual) Seg Neutrophils # Seg Neutrophils # Man 10.1 H Lymphocytes # (Manual) 5.6 H Monocytes # (Manual) PT 15.0 H APTT 44.3 H D-Dimer > 75831 H Heparin Anti-Xa Level ABG pH 7.116 L POC ABG pCO2 POC ABG pO2 ABG pO2 ABG Hemoglobin ABG Oxyhemoglobin 93.7 L ABG Sodium ABG Potassium ABG Chloride ABG Glucose 395 H Carboxyhemoglobin Sodium Potassium Chloride Carbon Dioxide BUN Creatinine Glucose POC Glucose Lactic Acid Calcium Ferritin AST ALT Alkaline Phosphatase Lactate Dehydrogenase Troponin T C-Reactive Protein Total Protein Albumin HDL Cholesterol Arterial Blood Glucose 395 H Arterial Blood Ionized Calcium 4.4 L Urine WBC (Auto) 05/25/21 05/25/21 05/25/21 09:21 09:21 09:21 WBC RBC Hgb Hct MCV MCH MCHC RDW [place] # (Auto) Seg Neutrophils % Seg Neuts % (Manual) Lymphocytes % (Manual) Monocytes % (Manual) Seg Neutrophils # Seg Neutrophils # Man Lymphocytes # (Manual) Monocytes # (Manual) PT APTT D-Dimer Heparin Anti-Xa Level ABG pH POC ABG pCO2 POC ABG pO2 ABG pO2 ABG Hemoglobin ABG Oxyhemoglobin ABG Sodium ABG Potassium ABG Chloride ABG Glucose Carboxyhemoglobin Sodium Potassium Chloride Carbon Dioxide 10 L BUN Creatinine Glucose 423 H 424 H POC Glucose Lactic Acid Calcium 8.2 L Ferritin 321.6 H AST 162 H ALT 119 H Alkaline Phosphatase Lactate Dehydrogenase 445 H Troponin T C-Reactive Protein Total Protein 5.6 L Albumin 3.2 L HDL Cholesterol Arterial Blood Glucose Arterial Blood Ionized Calcium Urine WBC (Auto) 05/25/21 05/25/21 05/25/21 09:35 10:42 11:12 WBC RBC Hgb Hct MCV MCH MCHC RDW [place] # (Auto) Seg Neutrophils % Seg Neuts % (Manual) Lymphocytes % (Manual) Monocytes % (Manual) Seg Neutrophils # Seg Neutrophils # Man Lymphocytes # (Manual) Monocytes # (Manual) PT APTT D-Dimer Heparin Anti-Xa Level ABG pH POC ABG pCO2 POC ABG pO2 ABG pO2 ABG Hemoglobin ABG Oxyhemoglobin ABG Sodium ABG Potassium ABG Chloride ABG Glucose Carboxyhemoglobin Sodium Potassium Chloride Carbon Dioxide BUN Creatinine Glucose POC Glucose Lactic Acid 16.70 H* 7.70 H* Calcium Ferritin AST ALT Alkaline Phosphatase Lactate Dehydrogenase Troponin T C-Reactive Protein Total Protein Albumin HDL Cholesterol Arterial Blood Glucose Arterial Blood Ionized Calcium Urine WBC (Auto) 11.0 H 05/25/21 05/25/21 05/25/21 14:07 15:19 19:04 WBC RBC Hgb Hct MCV MCH MCHC RDW [place] # (Auto) Seg Neutrophils % Seg Neuts % (Manual) Lymphocytes % (Manual) Monocytes % (Manual) Seg Neutrophils # Seg Neutrophils # Man Lymphocytes # (Manual) Monocytes # (Manual) PT APTT D-Dimer Heparin Anti-Xa Level ABG pH POC ABG pCO2 POC ABG pO2 172.2 H ABG pO2 ABG Hemoglobin ABG Oxyhemoglobin 98.7 H ABG Sodium 135.7 L ABG Potassium ABG Chloride ABG Glucose 255 H Carboxyhemoglobin 0.3 L Sodium Potassium Chloride Carbon Dioxide BUN Creatinine Glucose POC Glucose Lactic Acid 3.90 H* Calcium Ferritin AST ALT Alkaline Phosphatase Lactate Dehydrogenase Troponin T 0.226 H* D C-Reactive Protein Total Protein Albumin HDL Cholesterol 64 H Arterial Blood Glucose 255 H Arterial Blood Ionized Calcium 3.8 L Urine WBC (Auto) 05/25/21 05/25/21 05/26/21 21:16 21:16 04:00 WBC RBC Hgb Hct MCV MCH MCHC RDW [place] # (Auto) Seg Neutrophils % Seg Neuts % (Manual) Lymphocytes % (Manual) Monocytes % (Manual) Seg Neutrophils # Seg Neutrophils # Man Lymphocytes # (Manual) Monocytes # (Manual) PT APTT D-Dimer Heparin Anti-Xa Level 1.19 H ABG pH 7.547 H POC ABG pCO2 POC ABG pO2 ABG pO2 ABG Hemoglobin 11.9 L ABG Oxyhemoglobin ABG Sodium 133.2 L ABG Potassium 3.1 L ABG Chloride ABG Glucose 243 H Carboxyhemoglobin 0.3 L Sodium Potassium Chloride Carbon Dioxide BUN Creatinine Glucose POC Glucose Lactic Acid 2.50 H* Calcium Ferritin AST ALT Alkaline Phosphatase Lactate Dehydrogenase Troponin T C-Reactive Protein Total Protein Albumin HDL Cholesterol Arterial Blood Glucose 243 H Arterial Blood Ionized Calcium Urine WBC (Auto) 05/26/21 05/26/21 05/26/21 05:49 05:49 17:33 WBC RBC Hgb Hct MCV MCH MCHC RDW [place] # (Auto) Seg Neutrophils % Seg Neuts % (Manual) Lymphocytes % (Manual) Monocytes % (Manual) Seg Neutrophils # Seg Neutrophils # Man Lymphocytes # (Manual) Monocytes # (Manual) PT APTT D-Dimer Heparin Anti-Xa Level ABG pH POC ABG pCO2 POC ABG pO2 ABG pO2 ABG Hemoglobin ABG Oxyhemoglobin ABG Sodium ABG Potassium ABG Chloride ABG Glucose Carboxyhemoglobin Sodium Potassium Chloride Carbon Dioxide BUN Creatinine Glucose 226 H POC Glucose 156 H Lactic Acid 2.30 H* Calcium 7.2 L Ferritin AST 111 H ALT 97 H Alkaline Phosphatase Lactate Dehydrogenase Troponin T C-Reactive Protein Total Protein 5.4 L Albumin 3.3 L HDL Cholesterol Arterial Blood Glucose Arterial Blood Ionized Calcium Urine WBC (Auto) 05/27/21 05/27/21 05/27/21 02:11 02:11 02:11 WBC 14.3 H RBC 3.27 L Hgb Hct MCV 99 H MCH 33 H MCHC RDW 15.3 H [place] # (Auto) 1.0 H Seg Neutrophils % Seg Neuts % (Manual) Lymphocytes % (Manual) Monocytes % (Manual) Seg Neutrophils # 10.0 H Seg Neutrophils # Man Lymphocytes # (Manual) Monocytes # (Manual) PT APTT D-Dimer Heparin Anti-Xa Level 0.80 H ABG pH POC ABG pCO2 POC ABG pO2 ABG pO2 ABG Hemoglobin ABG Oxyhemoglobin ABG Sodium ABG Potassium ABG Chloride ABG Glucose Carboxyhemoglobin Sodium Potassium 2.9 L* D Chloride Carbon Dioxide 31 H BUN 6 L Creatinine Glucose 215 H POC Glucose Lactic Acid Calcium 8.1 L Ferritin AST ALT Alkaline Phosphatase Lactate Dehydrogenase Troponin T C-Reactive Protein Total Protein Albumin HDL Cholesterol Arterial Blood Glucose Arterial Blood Ionized Calcium Urine WBC (Auto) 05/27/21 05/27/21 05/27/21 11:24 12:49 18:06 WBC RBC Hgb Hct MCV MCH MCHC RDW [place] # (Auto) Seg Neutrophils % Seg Neuts % (Manual) Lymphocytes % (Manual) Monocytes % (Manual) Seg Neutrophils # Seg Neutrophils # Man Lymphocytes # (Manual) Monocytes # (Manual) PT APTT D-Dimer Heparin Anti-Xa Level ABG pH POC ABG pCO2 POC ABG pO2 ABG pO2 ABG Hemoglobin ABG Oxyhemoglobin ABG Sodium ABG Potassium ABG Chloride ABG Glucose Carboxyhemoglobin Sodium Potassium Chloride Carbon Dioxide BUN Creatinine Glucose POC Glucose 151 H 165 H 137 H Lactic Acid Calcium Ferritin AST ALT Alkaline Phosphatase Lactate Dehydrogenase Troponin T C-Reactive Protein Total Protein Albumin HDL Cholesterol Arterial Blood Glucose Arterial Blood Ionized Calcium Urine WBC (Auto) 05/28/21 05/28/21 05/28/21 04:00 04:00 06:02 WBC 13.5 H RBC 3.05 L Hgb Hct MCV 100 H MCH 34 H MCHC RDW [place] # (Auto) 0.9 H Seg Neutrophils % 78.2 H Seg Neuts % (Manual) Lymphocytes % (Manual) Monocytes % (Manual) Seg Neutrophils # 10.6 H Seg Neutrophils # Man Lymphocytes # (Manual) Monocytes # (Manual) PT APTT D-Dimer Heparin Anti-Xa Level ABG pH 7.507 H POC ABG pCO2 POC ABG pO2 ABG pO2 ABG Hemoglobin 10.6 L ABG Oxyhemoglobin ABG Sodium 129.4 L ABG Potassium ABG Chloride ABG Glucose 243 H Carboxyhemoglobin 0.2 L Sodium 136 L D Potassium Chloride Carbon Dioxide BUN Creatinine Glucose 215 H POC Glucose Lactic Acid Calcium Ferritin AST ALT Alkaline Phosphatase Lactate Dehydrogenase Troponin T C-Reactive Protein Total Protein Albumin HDL Cholesterol Arterial Blood Glucose 243 H Arterial Blood Ionized Calcium 4.1 L Urine WBC (Auto) 05/28/21 05/28/21 05/29/21 11:27 23:02 04:30 WBC RBC Hgb 9.3 L Hct 26.7 L MCV MCH MCHC RDW [place] # (Auto) Seg Neutrophils % Seg Neuts % (Manual) Lymphocytes % (Manual) Monocytes % (Manual) Seg Neutrophils # Seg Neutrophils # Man Lymphocytes # (Manual) Monocytes # (Manual) PT APTT D-Dimer Heparin Anti-Xa Level ABG pH POC ABG pCO2 POC ABG pO2 ABG pO2 ABG Hemoglobin ABG Oxyhemoglobin ABG Sodium ABG Potassium ABG Chloride ABG Glucose Carboxyhemoglobin Sodium Potassium Chloride Carbon Dioxide BUN Creatinine Glucose POC Glucose 220 H 212 H Lactic Acid Calcium Ferritin AST ALT Alkaline Phosphatase Lactate Dehydrogenase Troponin T C-Reactive Protein Total Protein Albumin HDL Cholesterol Arterial Blood Glucose Arterial Blood Ionized Calcium Urine WBC (Auto) 05/29/21 05/29/21 05/29/21 05:02 05:28 12:55 WBC RBC Hgb Hct MCV MCH MCHC RDW [place] # (Auto) Seg Neutrophils % Seg Neuts % (Manual) Lymphocytes % (Manual) Monocytes % (Manual) Seg Neutrophils # Seg Neutrophils # Man Lymphocytes # (Manual) Monocytes # (Manual) PT APTT D-Dimer Heparin Anti-Xa Level ABG pH 7.516 H POC ABG pCO2 POC ABG pO2 ABG pO2 96.2 H ABG Hemoglobin 7.5 L ABG Oxyhemoglobin ABG Sodium ABG Potassium ABG Chloride ABG Glucose Carboxyhemoglobin Sodium Potassium Chloride Carbon Dioxide BUN Creatinine Glucose POC Glucose 197 H 251 H Lactic Acid Calcium Ferritin AST ALT Alkaline Phosphatase Lactate Dehydrogenase Troponin T C-Reactive Protein Total Protein Albumin HDL Cholesterol Arterial Blood Glucose Arterial Blood Ionized Calcium Urine WBC (Auto) 05/29/21 05/29/21 05/30/21 18:23 23:31 04:10 WBC RBC Hgb Hct MCV MCH MCHC RDW [place] # (Auto) Seg Neutrophils % Seg Neuts % (Manual) Lymphocytes % (Manual) Monocytes % (Manual) Seg Neutrophils # Seg Neutrophils # Man Lymphocytes # (Manual) Monocytes # (Manual) PT APTT D-Dimer Heparin Anti-Xa Level ABG pH 7.532 H POC ABG pCO2 30.0 L POC ABG pO2 78.5 L ABG pO2 ABG Hemoglobin 11.3 L ABG Oxyhemoglobin ABG Sodium 126.7 L ABG Potassium ABG Chloride 94.0 L ABG Glucose 270 H Carboxyhemoglobin 0.4 L Sodium Potassium Chloride Carbon Dioxide BUN Creatinine Glucose POC Glucose 236 H 252 H Lactic Acid Calcium Ferritin AST ALT Alkaline Phosphatase Lactate Dehydrogenase Troponin T C-Reactive Protein Total Protein Albumin HDL Cholesterol Arterial Blood Glucose 270 H Arterial Blood Ionized Calcium 4.4 L Urine WBC (Auto) 05/30/21 05/30/21 05/30/21 05:06 06:23 11:15 WBC RBC Hgb Hct MCV MCH MCHC RDW [place] # (Auto) Seg Neutrophils % Seg Neuts % (Manual) Lymphocytes % (Manual) Monocytes % (Manual) Seg Neutrophils # Seg Neutrophils # Man Lymphocytes # (Manual) Monocytes # (Manual) PT APTT D-Dimer Heparin Anti-Xa Level ABG pH POC ABG pCO2 POC ABG pO2 ABG pO2 ABG Hemoglobin ABG Oxyhemoglobin ABG Sodium ABG Potassium ABG Chloride ABG Glucose Carboxyhemoglobin Sodium 126 L D Potassium Chloride 91.9 L Carbon Dioxide 20 L D BUN Creatinine 0.4 L Glucose 274 H POC Glucose 242 H 346 H Lactic Acid Calcium Ferritin AST ALT Alkaline Phosphatase Lactate Dehydrogenase Troponin T C-Reactive Protein Total Protein Albumin HDL Cholesterol Arterial Blood Glucose Arterial Blood Ionized Calcium Urine WBC (Auto) 05/30/21 05/30/21 05/30/21 11:19 11:19 11:19 WBC 18.9 H RBC 3.36 L Hgb Hct MCV 102 H MCH 33 H MCHC RDW 15.5 H [place] # (Auto) Seg Neutrophils % Seg Neuts % (Manual) Lymphocytes % (Manual) Monocytes % (Manual) Seg Neutrophils # Seg Neutrophils # Man Lymphocytes # (Manual) Monocytes # (Manual) PT APTT D-Dimer Heparin Anti-Xa Level < 0.10 L ABG pH POC ABG pCO2 POC ABG pO2 ABG pO2 ABG Hemoglobin ABG Oxyhemoglobin ABG Sodium ABG Potassium ABG Chloride ABG Glucose Carboxyhemoglobin Sodium 124 L Potassium Chloride Carbon Dioxide BUN Creatinine Glucose POC Glucose Lactic Acid Calcium Ferritin AST ALT Alkaline Phosphatase Lactate Dehydrogenase Troponin T C-Reactive Protein Total Protein Albumin HDL Cholesterol Arterial Blood Glucose Arterial Blood Ionized Calcium Urine WBC (Auto) 05/30/21 05/30/21 05/31/21 17:02 23:27 03:37 WBC RBC Hgb Hct MCV MCH MCHC RDW [place] # (Auto) Seg Neutrophils % Seg Neuts % (Manual) Lymphocytes % (Manual) Monocytes % (Manual) Seg Neutrophils # Seg Neutrophils # Man Lymphocytes # (Manual) Monocytes # (Manual) PT APTT D-Dimer Heparin Anti-Xa Level ABG pH POC ABG pCO2 POC ABG pO2 ABG pO2 ABG Hemoglobin 11.6 L ABG Oxyhemoglobin ABG Sodium 130.0 L ABG Potassium ABG Chloride 95.0 L ABG Glucose 292 H Carboxyhemoglobin Sodium Potassium Chloride Carbon Dioxide BUN Creatinine Glucose POC Glucose 270 H 237 H Lactic Acid Calcium Ferritin AST ALT Alkaline Phosphatase Lactate Dehydrogenase Troponin T C-Reactive Protein Total Protein Albumin HDL Cholesterol Arterial Blood Glucose 292 H Arterial Blood Ionized Calcium Urine WBC (Auto) 05/31/21 05/31/21 05/31/21 04:00 04:00 05:20 WBC 20.9 H RBC 3.13 L Hgb Hct MCV 99 H MCH 34 H MCHC RDW [place] # (Auto) Seg Neutrophils % Seg Neuts % (Manual) 81.0 H Lymphocytes % (Manual) 8.0 L Monocytes % (Manual) 9.0 H Seg Neutrophils # Seg Neutrophils # Man 16.9 H Lymphocytes # (Manual) Monocytes # (Manual) 1.9 H PT APTT D-Dimer Heparin Anti-Xa Level ABG pH POC ABG pCO2 POC ABG pO2 ABG pO2 ABG Hemoglobin ABG Oxyhemoglobin ABG Sodium ABG Potassium ABG Chloride ABG Glucose Carboxyhemoglobin Sodium 133 L D Potassium Chloride 95.4 L Carbon Dioxide 21 L BUN 30 H Creatinine 0.5 L Glucose 305 H POC Glucose 269 H Lactic Acid Calcium Ferritin AST ALT Alkaline Phosphatase Lactate Dehydrogenase Troponin T C-Reactive Protein Total Protein Albumin HDL Cholesterol Arterial Blood Glucose Arterial Blood Ionized Calcium Urine WBC (Auto) 05/31/21 05/31/21 05/31/21 11:40 18:16 23:25 WBC RBC Hgb Hct MCV MCH MCHC RDW [place] # (Auto) Seg Neutrophils % Seg Neuts % (Manual) Lymphocytes % (Manual) Monocytes % (Manual) Seg Neutrophils # Seg Neutrophils # Man Lymphocytes # (Manual) Monocytes # (Manual) PT APTT D-Dimer Heparin Anti-Xa Level ABG pH POC ABG pCO2 POC ABG pO2 ABG pO2 ABG Hemoglobin ABG Oxyhemoglobin ABG Sodium ABG Potassium ABG Chloride ABG Glucose Carboxyhemoglobin Sodium Potassium Chloride Carbon Dioxide BUN Creatinine Glucose POC Glucose 364 H 250 H 231 H Lactic Acid Calcium Ferritin AST ALT Alkaline Phosphatase Lactate Dehydrogenase Troponin T C-Reactive Protein Total Protein Albumin HDL Cholesterol Arterial Blood Glucose Arterial Blood Ionized Calcium Urine WBC (Auto) 06/01/21 06/01/21 06/01/21 04:03 04:58 04:58 WBC 20.7 H RBC 3.20 L Hgb Hct MCV 99 H MCH 34 H MCHC RDW [place] # (Auto) Seg Neutrophils % Seg Neuts % (Manual) 82.0 H Lymphocytes % (Manual) 9.0 L Monocytes % (Manual) Seg Neutrophils # Seg Neutrophils # Man 17.0 H Lymphocytes # (Manual) Monocytes # (Manual) 1.4 H PT APTT D-Dimer Heparin Anti-Xa Level 1.18 H ABG pH 7.520 H POC ABG pCO2 POC ABG pO2 66.0 L ABG pO2 ABG Hemoglobin ABG Oxyhemoglobin 92.5 L ABG Sodium 133.6 L ABG Potassium ABG Chloride ABG Glucose 250 H Carboxyhemoglobin Sodium Potassium Chloride Carbon Dioxide BUN Creatinine Glucose POC Glucose Lactic Acid Calcium Ferritin AST ALT Alkaline Phosphatase Lactate Dehydrogenase Troponin T C-Reactive Protein Total Protein Albumin HDL Cholesterol Arterial Blood Glucose 250 H Arterial Blood Ionized Calcium 4.4 L Urine WBC (Auto) 06/01/21 06/01/21 06/01/21 04:58 05:29 11:39 WBC RBC Hgb Hct MCV MCH MCHC RDW [place] # (Auto) Seg Neutrophils % Seg Neuts % (Manual) Lymphocytes % (Manual) Monocytes % (Manual) Seg Neutrophils # Seg Neutrophils # Man Lymphocytes # (Manual) Monocytes # (Manual) PT APTT D-Dimer Heparin Anti-Xa Level ABG pH POC ABG pCO2 POC ABG pO2 ABG pO2 ABG Hemoglobin ABG Oxyhemoglobin ABG Sodium ABG Potassium ABG Chloride ABG Glucose Carboxyhemoglobin Sodium 131 L Potassium Chloride 95.7 L Carbon Dioxide BUN 30 H Creatinine 0.5 L Glucose 241 H POC Glucose 215 H 299 H Lactic Acid Calcium Ferritin AST ALT Alkaline Phosphatase Lactate Dehydrogenase Troponin T C-Reactive Protein Total Protein Albumin HDL Cholesterol Arterial Blood Glucose Arterial Blood Ionized Calcium Urine WBC (Auto) 06/01/21 06/02/21 06/02/21 18:14 00:12 02:25 WBC 17.4 H RBC 3.09 L Hgb Hct MCV 101 H MCH 34 H MCHC RDW 15.5 H [place] # (Auto) Seg Neutrophils % Seg Neuts % (Manual) Lymphocytes % (Manual) Monocytes % (Manual) Seg Neutrophils # Seg Neutrophils # Man Lymphocytes # (Manual) Monocytes # (Manual) PT APTT D-Dimer Heparin Anti-Xa Level ABG pH POC ABG pCO2 POC ABG pO2 ABG pO2 ABG Hemoglobin ABG Oxyhemoglobin ABG Sodium ABG Potassium ABG Chloride ABG Glucose Carboxyhemoglobin Sodium Potassium Chloride Carbon Dioxide BUN Creatinine Glucose POC Glucose 215 H 175 H Lactic Acid Calcium Ferritin AST ALT Alkaline Phosphatase Lactate Dehydrogenase Troponin T C-Reactive Protein Total Protein Albumin HDL Cholesterol Arterial Blood Glucose Arterial Blood Ionized Calcium Urine WBC (Auto) 06/02/21 06/02/21 06/02/21 02:25 04:13 04:58 WBC RBC Hgb Hct MCV MCH MCHC RDW [place] # (Auto) Seg Neutrophils % Seg Neuts % (Manual) Lymphocytes % (Manual) Monocytes % (Manual) Seg Neutrophils # Seg Neutrophils # Man Lymphocytes # (Manual) Monocytes # (Manual) PT APTT D-Dimer Heparin Anti-Xa Level ABG pH 7.481 H POC ABG pCO2 POC ABG pO2 80.0 L ABG pO2 ABG Hemoglobin 11.1 L ABG Oxyhemoglobin ABG Sodium 131.9 L ABG Potassium ABG Chloride ABG Glucose 231 H Carboxyhemoglobin 0.2 L Sodium 134 L Potassium Chloride 95.8 L Carbon Dioxide BUN 31 H Creatinine 0.5 L Glucose 168 H POC Glucose 230 H Lactic Acid Calcium Ferritin AST ALT Alkaline Phosphatase Lactate Dehydrogenase Troponin T C-Reactive Protein Total Protein Albumin HDL Cholesterol Arterial Blood Glucose 231 H Arterial Blood Ionized Calcium Urine WBC (Auto) 06/02/21 06/02/21 06/02/21 11:27 17:47 23:53 WBC RBC Hgb Hct MCV MCH MCHC RDW [place] # (Auto) Seg Neutrophils % Seg Neuts % (Manual) Lymphocytes % (Manual) Monocytes % (Manual) Seg Neutrophils # Seg Neutrophils # Man Lymphocytes # (Manual) Monocytes # (Manual) PT APTT D-Dimer Heparin Anti-Xa Level 0.80 H ABG pH POC ABG pCO2 POC ABG pO2 ABG pO2 ABG Hemoglobin ABG Oxyhemoglobin ABG Sodium ABG Potassium ABG Chloride ABG Glucose Carboxyhemoglobin Sodium Potassium Chloride Carbon Dioxide BUN Creatinine Glucose POC Glucose 259 H 297 H Lactic Acid Calcium Ferritin AST ALT Alkaline Phosphatase Lactate Dehydrogenase Troponin T C-Reactive Protein Total Protein Albumin HDL Cholesterol Arterial Blood Glucose Arterial Blood Ionized Calcium Urine WBC (Auto) 06/03/21 06/03/21 06/03/21 00:05 05:23 09:10 WBC RBC Hgb Hct MCV MCH MCHC RDW [place] # (Auto) Seg Neutrophils % Seg Neuts % (Manual) Lymphocytes % (Manual) Monocytes % (Manual) Seg Neutrophils # Seg Neutrophils # Man Lymphocytes # (Manual) Monocytes # (Manual) PT APTT D-Dimer Heparin Anti-Xa Level 0.84 H ABG pH POC ABG pCO2 POC ABG pO2 ABG pO2 ABG Hemoglobin ABG Oxyhemoglobin ABG Sodium ABG Potassium ABG Chloride ABG Glucose Carboxyhemoglobin Sodium Potassium Chloride Carbon Dioxide BUN Creatinine Glucose POC Glucose 268 H 170 H Lactic Acid Calcium Ferritin AST ALT Alkaline Phosphatase Lactate Dehydrogenase Troponin T C-Reactive Protein Total Protein Albumin HDL Cholesterol Arterial Blood Glucose Arterial Blood Ionized Calcium Urine WBC (Auto) 06/03/21 06/03/21 06/03/21 12:06 20:22 23:30 WBC RBC Hgb Hct MCV MCH MCHC RDW [place] # (Auto) Seg Neutrophils % Seg Neuts % (Manual) Lymphocytes % (Manual) Monocytes % (Manual) Seg Neutrophils # Seg Neutrophils # Man Lymphocytes # (Manual) Monocytes # (Manual) PT APTT D-Dimer Heparin Anti-Xa Level ABG pH POC ABG pCO2 POC ABG pO2 ABG pO2 ABG Hemoglobin ABG Oxyhemoglobin ABG Sodium ABG Potassium ABG Chloride ABG Glucose Carboxyhemoglobin Sodium Potassium Chloride Carbon Dioxide BUN Creatinine Glucose POC Glucose 275 H 260 H 215 H Lactic Acid Calcium Ferritin AST ALT Alkaline Phosphatase Lactate Dehydrogenase Troponin T C-Reactive Protein Total Protein Albumin HDL Cholesterol Arterial Blood Glucose Arterial Blood Ionized Calcium Urine WBC (Auto) 06/04/21 06/04/21 06/04/21 05:03 05:57 05:57 WBC 17.8 H RBC 2.83 L Hgb 9.6 L Hct 28.4 L MCV 100 H MCH 34 H MCHC RDW 15.5 H [place] # (Auto) Seg Neutrophils % Seg Neuts % (Manual) 83.0 H Lymphocytes % (Manual) 4.0 L Monocytes % (Manual) Seg Neutrophils # Seg Neutrophils # Man 14.8 H Lymphocytes # (Manual) 0.7 L Monocytes # (Manual) 1.1 H PT APTT D-Dimer Heparin Anti-Xa Level ABG pH POC ABG pCO2 POC ABG pO2 ABG pO2 ABG Hemoglobin ABG Oxyhemoglobin ABG Sodium ABG Potassium ABG Chloride ABG Glucose Carboxyhemoglobin Sodium 135 L Potassium Chloride 96.3 L Carbon Dioxide BUN 51 H Creatinine Glucose 275 H POC Glucose 257 H Lactic Acid Calcium Ferritin AST ALT Alkaline Phosphatase Lactate Dehydrogenase Troponin T C-Reactive Protein Total Protein Albumin HDL Cholesterol Arterial Blood Glucose Arterial Blood Ionized Calcium Urine WBC (Auto) 09/06/04/21 06/04/21 09:48 11:08 17:33 WBC RBC Hgb Hct MCV MCH MCHC RDW [place] # (Auto) Seg Neutrophils % Seg Neuts % (Manual) Lymphocytes % (Manual) Monocytes % (Manual) Seg Neutrophils # Seg Neutrophils # Man Lymphocytes # (Manual) Monocytes # (Manual) PT APTT D-Dimer Heparin Anti-Xa Level ABG pH POC ABG pCO2 POC ABG pO2 ABG pO2 ABG Hemoglobin ABG Oxyhemoglobin ABG Sodium ABG Potassium ABG Chloride ABG Glucose Carboxyhemoglobin Sodium Potassium Chloride Carbon Dioxide BUN Creatinine Glucose POC Glucose 198 H 234 H 247 H Lactic Acid Calcium Ferritin AST ALT Alkaline Phosphatase Lactate Dehydrogenase Troponin T C-Reactive Protein Total Protein Albumin HDL Cholesterol Arterial Blood Glucose Arterial Blood Ionized Calcium Urine WBC (Auto) 06/04/21 06/05/21 06/05/21 23:30 05:38 11:24 WBC RBC Hgb Hct MCV MCH MCHC RDW [place] # (Auto) Seg Neutrophils % Seg Neuts % (Manual) Lymphocytes % (Manual) Monocytes % (Manual) Seg Neutrophils # Seg Neutrophils # Man Lymphocytes # (Manual) Monocytes # (Manual) PT APTT D-Dimer Heparin Anti-Xa Level ABG pH POC ABG pCO2 POC ABG pO2 ABG pO2 ABG Hemoglobin ABG Oxyhemoglobin ABG Sodium ABG Potassium ABG Chloride ABG Glucose Carboxyhemoglobin Sodium Potassium Chloride Carbon Dioxide BUN Creatinine Glucose POC Glucose 192 H 192 H 287 H Lactic Acid Calcium Ferritin AST ALT Alkaline Phosphatase Lactate Dehydrogenase Troponin T C-Reactive Protein Total Protein Albumin HDL Cholesterol Arterial Blood Glucose Arterial Blood Ionized Calcium Urine WBC (Auto) 06/05/21 06/05/21 06/05/21 12:20 12:20 12:20 WBC 16.2 H RBC 2.56 L Hgb 8.8 L Hct 25.2 L MCV 98 H MCH 35 H MCHC 35 H RDW 15.3 H [place] # (Auto) Seg Neutrophils % Seg Neuts % (Manual) Lymphocytes % (Manual) Monocytes % (Manual) Seg Neutrophils # Seg Neutrophils # Man Lymphocytes # (Manual) Monocytes # (Manual) PT APTT 72.2 H* D-Dimer Heparin Anti-Xa Level ABG pH POC ABG pCO2 POC ABG pO2 ABG pO2 ABG Hemoglobin ABG Oxyhemoglobin ABG Sodium ABG Potassium ABG Chloride ABG Glucose Carboxyhemoglobin Sodium 133 L Potassium Chloride 95.3 L Carbon Dioxide BUN 57 H Creatinine Glucose 313 H POC Glucose Lactic Acid Calcium Ferritin AST 90 H ALT 79 H Alkaline Phosphatase 262 H Lactate Dehydrogenase Troponin T C-Reactive Protein Total Protein Albumin 2.7 L HDL Cholesterol Arterial Blood Glucose Arterial Blood Ionized Calcium Urine WBC (Auto) 06/05/21 06/05/21 06/05/21 17:50 22:57 23:36 WBC RBC Hgb Hct MCV MCH MCHC RDW [place] # (Auto) Seg Neutrophils % Seg Neuts % (Manual) Lymphocytes % (Manual) Monocytes % (Manual) Seg Neutrophils # Seg Neutrophils # Man Lymphocytes # (Manual) Monocytes # (Manual) PT APTT D-Dimer Heparin Anti-Xa Level 0.28 L ABG pH POC ABG pCO2 POC ABG pO2 ABG pO2 ABG Hemoglobin ABG Oxyhemoglobin ABG Sodium ABG Potassium ABG Chloride ABG Glucose Carboxyhemoglobin Sodium Potassium Chloride Carbon Dioxide BUN Creatinine Glucose POC Glucose 275 H 223 H Lactic Acid Calcium Ferritin AST ALT Alkaline Phosphatase Lactate Dehydrogenase Troponin T C-Reactive Protein Total Protein Albumin HDL Cholesterol Arterial Blood Glucose Arterial Blood Ionized Calcium Urine WBC (Auto) 06/06/21 06/06/21 06/06/21 04:57 04:57 05:02 WBC 15.7 H RBC 2.77 L Hgb 9.4 L Hct 27.2 L MCV 98 H MCH 34 H MCHC RDW 15.4 H [place] # (Auto) Seg Neutrophils % Seg Neuts % (Manual) Lymphocytes % (Manual) Monocytes % (Manual) Seg Neutrophils # Seg Neutrophils # Man Lymphocytes # (Manual) Monocytes # (Manual) PT APTT D-Dimer Heparin Anti-Xa Level ABG pH POC ABG pCO2 POC ABG pO2 ABG pO2 ABG Hemoglobin ABG Oxyhemoglobin ABG Sodium ABG Potassium ABG Chloride ABG Glucose Carboxyhemoglobin Sodium Potassium 5.7 H Chloride Carbon Dioxide BUN 57 H Creatinine Glucose 245 H POC Glucose 217 H Lactic Acid Calcium Ferritin AST 99 H ALT 136 H Alkaline Phosphatase 312 H Lactate Dehydrogenase Troponin T C-Reactive Protein Total Protein 6.1 L Albumin 3.1 L HDL Cholesterol Arterial Blood Glucose Arterial Blood Ionized Calcium Urine WBC (Auto) 06/06/21 06/06/21 06/06/21 11:37 17:34 18:09 WBC RBC Hgb Hct MCV MCH MCHC RDW [place] # (Auto) Seg Neutrophils % Seg Neuts % (Manual) Lymphocytes % (Manual) Monocytes % (Manual) Seg Neutrophils # Seg Neutrophils # Man Lymphocytes # (Manual) Monocytes # (Manual) PT APTT D-Dimer Heparin Anti-Xa Level ABG pH POC ABG pCO2 POC ABG pO2 ABG pO2 ABG Hemoglobin ABG Oxyhemoglobin ABG Sodium ABG Potassium ABG Chloride ABG Glucose Carboxyhemoglobin Sodium Potassium 5.2 H Chloride Carbon Dioxide BUN 48 H Creatinine Glucose 245 H POC Glucose 251 H 217 H Lactic Acid Calcium Ferritin AST ALT Alkaline Phosphatase Lactate Dehydrogenase Troponin T C-Reactive Protein Total Protein Albumin HDL Cholesterol Arterial Blood Glucose Arterial Blood Ionized Calcium Urine WBC (Auto) 06/06/21 06/07/21 06/07/21 23:53 04:45 04:45 WBC 21.5 H RBC 2.71 L Hgb 9.0 L Hct 26.9 L MCV 99 H MCH 33 H MCHC RDW 15.3 H [place] # (Auto) Seg Neutrophils % Seg Neuts % (Manual) Lymphocytes % (Manual) Monocytes % (Manual) Seg Neutrophils # Seg Neutrophils # Man Lymphocytes # (Manual) Monocytes # (Manual) PT APTT D-Dimer Heparin Anti-Xa Level 0.10 L ABG pH POC ABG pCO2 POC ABG pO2 ABG pO2 ABG Hemoglobin ABG Oxyhemoglobin ABG Sodium ABG Potassium ABG Chloride ABG Glucose Carboxyhemoglobin Sodium Potassium Chloride Carbon Dioxide BUN Creatinine Glucose POC Glucose 224 H Lactic Acid Calcium Ferritin AST ALT Alkaline Phosphatase Lactate Dehydrogenase Troponin T C-Reactive Protein Total Protein Albumin HDL Cholesterol Arterial Blood Glucose Arterial Blood Ionized Calcium Urine WBC (Auto) 06/07/21 06/07/21 06/07/21 04:45 05:11 11:50 WBC RBC Hgb Hct MCV MCH MCHC RDW [place] # (Auto) Seg Neutrophils % Seg Neuts % (Manual) Lymphocytes % (Manual) Monocytes % (Manual) Seg Neutrophils # Seg Neutrophils # Man Lymphocytes # (Manual) Monocytes # (Manual) PT APTT D-Dimer Heparin Anti-Xa Level ABG pH POC ABG pCO2 POC ABG pO2 ABG pO2 ABG Hemoglobin ABG Oxyhemoglobin ABG Sodium ABG Potassium ABG Chloride ABG Glucose Carboxyhemoglobin Sodium Potassium 5.4 H Chloride Carbon Dioxide BUN 55 H Creatinine Glucose 178 H POC Glucose 156 H 118 H Lactic Acid Calcium Ferritin AST ALT Alkaline Phosphatase Lactate Dehydrogenase Troponin T C-Reactive Protein Total Protein Albumin HDL Cholesterol Arterial Blood Glucose Arterial Blood Ionized Calcium Urine WBC (Auto) 06/07/21 06/07/21 06/07/21 14:52 17:45 20:43 WBC RBC Hgb Hct MCV MCH MCHC RDW [place] # (Auto) Seg Neutrophils % Seg Neuts % (Manual) Lymphocytes % (Manual) Monocytes % (Manual) Seg Neutrophils # Seg Neutrophils # Man Lymphocytes # (Manual) Monocytes # (Manual) PT APTT D-Dimer Heparin Anti-Xa Level 0.73 H ABG pH POC ABG pCO2 POC ABG pO2 ABG pO2 ABG Hemoglobin ABG Oxyhemoglobin ABG Sodium ABG Potassium ABG Chloride ABG Glucose Carboxyhemoglobin Sodium Potassium Chloride Carbon Dioxide BUN Creatinine Glucose POC Glucose 164 H Lactic Acid Calcium Ferritin AST ALT Alkaline Phosphatase Lactate Dehydrogenase Troponin T C-Reactive Protein 28.90 H Total Protein Albumin HDL Cholesterol Arterial Blood Glucose Arterial Blood Ionized Calcium Urine WBC (Auto) 06/07/21 06/08/21 06/08/21 23:15 04:25 04:25 WBC 15.8 H RBC 2.58 L Hgb 8.6 L Hct 25.7 L MCV 100 H MCH 33 H MCHC RDW [place] # (Auto) Seg Neutrophils % Seg Neuts % (Manual) 76.0 H Lymphocytes % (Manual) 6.0 L Monocytes % (Manual) 8.0 H Seg Neutrophils # Seg Neutrophils # Man 12.0 H Lymphocytes # (Manual) 0.9 L Monocytes # (Manual) 1.3 H PT APTT D-Dimer Heparin Anti-Xa Level ABG pH POC ABG pCO2 POC ABG pO2 ABG pO2 ABG Hemoglobin ABG Oxyhemoglobin ABG Sodium ABG Potassium ABG Chloride ABG Glucose Carboxyhemoglobin Sodium Potassium Chloride Carbon Dioxide BUN 65 H Creatinine Glucose 205 H POC Glucose 236 H Lactic Acid Calcium Ferritin AST ALT Alkaline Phosphatase Lactate Dehydrogenase Troponin T C-Reactive Protein Total Protein Albumin HDL Cholesterol Arterial Blood Glucose Arterial Blood Ionized Calcium Urine WBC (Auto) 06/08/21 06/08/21 06/08/21 05:36 11:18 17:41 WBC RBC Hgb Hct MCV MCH MCHC RDW [place] # (Auto) Seg Neutrophils % Seg Neuts % (Manual) Lymphocytes % (Manual) Monocytes % (Manual) Seg Neutrophils # Seg Neutrophils # Man Lymphocytes # (Manual) Monocytes # (Manual) PT APTT D-Dimer Heparin Anti-Xa Level ABG pH POC ABG pCO2 POC ABG pO2 ABG pO2 ABG Hemoglobin ABG Oxyhemoglobin ABG Sodium ABG Potassium ABG Chloride ABG Glucose Carboxyhemoglobin Sodium Potassium Chloride Carbon Dioxide BUN Creatinine Glucose POC Glucose 185 H 203 H 173 H Lactic Acid Calcium Ferritin AST ALT Alkaline Phosphatase Lactate Dehydrogenase Troponin T C-Reactive Protein Total Protein Albumin HDL Cholesterol Arterial Blood Glucose Arterial Blood Ionized Calcium Urine WBC (Auto) 06/08/21 06/09/21 06/09/21 23:34 05:16 05:20 WBC 15.0 H RBC 2.54 L Hgb 8.5 L Hct 25.2 L MCV 99 H MCH 33 H MCHC RDW [place] # (Auto) Seg Neutrophils % Seg Neuts % (Manual) Lymphocytes % (Manual) Monocytes % (Manual) Seg Neutrophils # Seg Neutrophils # Man Lymphocytes # (Manual) Monocytes # (Manual) PT APTT D-Dimer Heparin Anti-Xa Level ABG pH POC ABG pCO2 POC ABG pO2 ABG pO2 ABG Hemoglobin ABG Oxyhemoglobin ABG Sodium ABG Potassium ABG Chloride ABG Glucose Carboxyhemoglobin Sodium Potassium Chloride Carbon Dioxide BUN Creatinine Glucose POC Glucose 200 H 154 H Lactic Acid Calcium Ferritin AST ALT Alkaline Phosphatase Lactate Dehydrogenase Troponin T C-Reactive Protein Total Protein Albumin HDL Cholesterol Arterial Blood Glucose Arterial Blood Ionized Calcium Urine WBC (Auto) 06/09/21 06/09/21 05:20 11:40 WBC RBC Hgb Hct MCV MCH MCHC RDW [place] # (Auto) Seg Neutrophils % Seg Neuts % (Manual) Lymphocytes % (Manual) Monocytes % (Manual) Seg Neutrophils # Seg Neutrophils # Man Lymphocytes # (Manual) Monocytes # (Manual) PT APTT D-Dimer Heparin Anti-Xa Level ABG pH POC ABG pCO2 POC ABG pO2 ABG pO2 ABG Hemoglobin ABG Oxyhemoglobin ABG Sodium ABG Potassium ABG Chloride ABG Glucose Carboxyhemoglobin Sodium Potassium 5.2 H Chloride Carbon Dioxide BUN 69 H Creatinine Glucose 163 H POC Glucose 232 H Lactic Acid Calcium Ferritin AST ALT Alkaline Phosphatase Lactate Dehydrogenase Troponin T C-Reactive Protein Total Protein Albumin HDL Cholesterol Arterial Blood Glucose Arterial Blood Ionized Calcium Urine WBC (Auto) Chest x-ray: pending Allied health notes reviewed: nursing
--- NOTE | 2021-06-09 11:53 | Progress Note ---
Assessment and Plan Assessment and plan: 65-year-old female with PmHx of nonepileptic spells, PTSD, closed head injury, hypertension, diabetes, CAD, who came in s/p cardiac arrest Hospital Course to Date: 06/05/21- Patient remains ETT and on vent support. Off sedation with some improvement in neuro status, but is not following commands. Patient is tolerating SBT trial this am, still on the heparin gtt. AM labs is pending. Patient is still hyperglycemic, increased Qhs lantus. Continue supportive care. 06/06/21- Patient is intubated and on the vent. No longer on sedation, awake but unresponsive, tolerating SBT. Hyperglycemia this am, X1 dose of kayaxalate orderd. Persistent hyperglycemia, insulin adjusted. Continue to monitor electrolytes, repeat BMP this afternoon and am labs ordered. 06/07/21- Patient remains intubated and on the vent. Neuro status is unchanged, spontaneously open yes but is not following commands. SBT trial again, plan to place back on a rate overnight. Leukocytosis noted from this morning lab, stat procalc and CRP ordered, d/w CCM no abx at this time. K 5.4 today, kayalalxate given. Continue to monitor leukocytosis and electrolytes. Am labs ordered 06/08/21- Patient remains intubated and on the vent with no significant change in her neuro status. Patient with no BM in 7days, abdominal soft with positive bowel sounds, colace added and PRN ducolax Supp PRN. Continue to monitor leukocytosis and electrolytes, am labs ordered. Plan for trach and PEG, surgery consulted. 06/09/21- Patient remains stable, intubated with no significant change in neuro status. Trach and Peg cancelled for today. Plan for possibly next week. Hyperkalemia again today, chart review for possible meds interaction. X1 dose of kayexalate ordered. Still no BM today. Episode of emesis today, TF held and NGT to LIS until tommorrow. Orders place for KUB today and Chest XR for the morning. Morning labs ordered. 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 - Per Neuro 05/29 EEG no sign of seizures - Patient is off sedation, open eyes spontaneously, pupils reactive, with +gag and cough. - Not following commands, no movement to stimuli - Continue Keppra and PRN ativan for seizure - Continue Supportive care #CV: s/p Cardiac Arrest #AFIB with RVR- resolved #Hypertension - Remains SR on the monitor - Normotensive - Continue antihypertensives: Labetalol, Hydralazine, valsartan, & Doxazosin - PRN hydralazine for SBP> 160 - Continue AC- Heparin gtt per protocol - Cardio is following #Resp.: Acute Hypoxemic Respitaroy Failure s/p cardiac Arrest #Bilateral Lower Lobe Infiltrates- improved - 05/25 ETT- Vent setting: PRVC- 30%,8,12,400 - 05/29 CXR- improved lung aeration - Patient is tolerating breathing trial, continue daily SBT - ABG per [facility] - F/U CXR in the am - Continue supplemental O2 for SPO2 goal>90% - D/w [facility] rec Trach and PEG-Family at bedside [facility] discussed plan with family - [facility] spoke with Patient's son- Plan for Trach and PEG possibly next week - Surgery consulted - Case management for LTACH placement #GI: Abdominal distention possibly due to Constipation #Vomitting- resolved - last documented BM 06/01 - 06/03 KUB showed no sign. abnormality - Bowel Regimen- senokot, Miralax - Added Colace, and PRN Ducolax supp - TF at goal - Continue PPI- pecid #: Hyperkalemia- - 06/06 K 5.7; X1 dose of kayexalate via NGT - 06/08 K 4.5 today - 06/09 K 5.2- X1 dose of kayexalate - Purewick in placed - Continue strict I&Os - Continue to monitor renal function and electrolytes, am labs ordered #ID: Leukocytosis #Sepsis- resolved #Bilateral Lower Lobe Infiltrates- improved - 05/25 Bcultx2-neg; 05/25 Tracheal aspirate-neg; 05/25 Urine cult- neg - 05/29 CXR- improved lung aeration - WBCs trending down; 06/06 Wbcs 15.7 06/07 Wbcs 21.5 - Leukocytosis down trending 15 today - 06/07 CRP 28.90 and procal 0.36 - Afebrile TMAX 99.6, not on pressors - d/w CCM no abx at this time. - Continue to monitor- AM labs ordered #Endo: Hyperglycemia; H/o DM - Remains hyperglycemic - On high dose SSI Q6hrs - increased Lantus to 25units- Will reassess in the am #DVT prophylaxis - SCDs to bilateral lower extremities while in bed - Continue AC- heparin gtt The high probability of a clinically significant, sudden or life threatening deterioration of the [neuro, Pulmo, GI, Endo] system(s) required my full and direct attention, intervention and personal management. The aggregate critical care time was [60] minutes. This time is in addition to time spent performing reported procedures but includes the following: [x] Data Review and interpretation [x] Patient assessment and monitoring of vital signs [x] Documentation [x] Medication orders and management I saw and evaluated the patient. Discussed with the nurse practitioner and agree with their findings and plan as documented in this note. Disposition Plan: ICU Total Time Spent with Patient (Minutes): 60 History Interval history: Patient seen and examined at the bedside. Remains on vent, tolerating SBT trial. Awake and opening eyes spontaneously. No significant events overnight Hospitalist Physical - Constitutional Vitals: Temp Pulse Resp BP Pulse Ox 97.8 F 78 17 174/78 99 06/09/21 07:31 06/09/21 10:16 06/09/21 07:55 06/09/21 10:16 06/09/21 07:55 General appearance: Present: no acute distress - EENT Eyes: Present: PERRL - Respiratory Respiratory effort: normal Respiratory: bilateral: diminished - Cardiovascular Rhythm: regular Heart Sounds: Present: S1 & S2 - Extremities Extremities: pulses intact, pulses symmetrical Extremity abnormal: edema - Peripheral Assessment Generalized Edema Type: Non-pitting Edema Degree: 1+ Capillary Refill: < 3 seconds Skin Temperature: Warm Peripheral Pulses: within normal limits - Abdominal General gastrointestinal: soft, non-tender, normal bowel sounds - Integumentary Integumentary: Present: clear, warm, dry - Psychiatric Psychiatric: other ([facility]) - Neurologic Neurologic: other ([facility]) - Allied Health Allied health notes reviewed: nursing HEART Score - HEART Score Troponin: Troponin T 0.226 ng/mL (0.00-0.029) H* D 05/25/21 15:19 Results - Labs CBC & Chem 7: 06/09/21 05:20 06/09/21 05:20 Labs: Laboratory Last Values WBC 15.0 K/mm3 (4.5-11.0) H 06/09/21 05:20 RBC 2.54 M/mm3 (3.65-5.03) L 06/09/21 05:20 Hgb 8.5 gm/dl (10.1-14.3) L 06/09/21 05:20 Hct 25.2 % (30.3-42.9) L 06/09/21 05:20 MCV 99 fl (79-97) H 06/09/21 05:20 MCH 33 pg (28-32) H 06/09/21 05:20 MCHC 34 % (30-34) 06/09/21 05:20 RDW 14.9 % (13.2-15.2) 06/09/21 05:20 Plt Count 309 K/mm3 (140-440) 06/09/21 05:20 Lymph % (Auto) 14.3 % (13.4-35.0) 05/28/21 04:00 [place] % (Auto) 6.9 % (0.0-7.3) 05/28/21 04:00 Eos % (Auto) 0.1 % (0.0-4.3) 05/28/21 04:00 Baso % (Auto) 0.5 % (0.0-1.8) 05/28/21 04:00 Lymph # (Auto) 1.9 K/mm3 (1.2-5.4) 05/28/21 04:00 [place] # (Auto) 0.9 K/mm3 (0.0-0.8) H 05/28/21 04:00 Eos # (Auto) 0.0 K/mm3 (0.0-0.4) 05/28/21 04:00 Baso # (Auto) 0.1 K/mm3 (0.0-0.1) 05/28/21 04:00 Add Manual Diff Complete 06/08/21 04:25 Total Counted 100 06/08/21 04:25 Seg Neutrophils % 78.2 % (40.0-70.0) H 05/28/21 04:00 Seg Neuts % (Manual) 76.0 % (40.0-70.0) H 06/08/21 04:25 Band Neutrophils % 4.0 % 06/08/21 04:25 Lymphocytes % (Manual) 6.0 % (13.4-35.0) L 06/08/21 04:25 Monocytes % (Manual) 8.0 % (0.0-7.3) H 06/08/21 04:25 Eosinophils % (Manual) 1.0 % (0.0-4.3) 06/08/21 04:25 Metamyelocytes % 3.0 % 06/08/21 04:25 Myelocytes % 2.0 % 06/08/21 04:25 Nucleated RBC % Not Reportable 06/08/21 04:25 Seg Neutrophils # 10.6 K/mm3 (1.8-7.7) H 05/28/21 04:00 Seg Neutrophils # Man 12.0 K/mm3 (1.8-7.7) H 06/08/21 04:25 Band Neutrophils # 0.6 K/mm3 06/08/21 04:25 Lymphocytes # (Manual) 0.9 K/mm3 (1.2-5.4) L 06/08/21 04:25 Abs React Lymphs (Man) 0.0 K/mm3 06/08/21 04:25 Monocytes # (Manual) 1.3 K/mm3 (0.0-0.8) H 06/08/21 04:25 Eosinophils # (Manual) 0.2 K/mm3 (0.0-0.4) 06/08/21 04:25 Basophils # (Manual) 0.0 K/mm3 (0.0-0.1) 06/08/21 04:25 Metamyelocytes # 0.5 K/mm3 06/08/21 04:25 Myelocytes # 0.3 K/mm3 06/08/21 04:25 Promyelocytes # 0.0 K/mm3 06/08/21 04:25 Blast Cells # 0.0 K/mm3 06/08/21 04:25 WBC Morphology Not Reportable 06/08/21 04:25 Hypersegmented Neuts Not Reportable 06/08/21 04:25 Hyposegmented Neuts Not Reportable 06/08/21 04:25 Hypogranular Neuts Not Reportable 06/08/21 04:25 Smudge Cells Not Reportable 06/08/21 04:25 Toxic Granulation Not Reportable 06/08/21 04:25 Toxic Vacuolation Not Reportable 06/08/21 04:25 Dohle Bodies Not Reportable 06/08/21 04:25 Pelger-Huet Anomaly Not Reportable 06/08/21 04:25 Peter Rods Not Reportable 06/08/21 04:25 Platelet Estimate Consistent w auto 06/08/21 04:25 Clumped Platelets Not Reportable 06/08/21 04:25 Plt Clumps, EDTA Not Reportable 06/08/21 04:25 Large Platelets Not Reportable 06/08/21 04:25 Giant Platelets Not Reportable 06/08/21 04:25 Platelet Satelliting Not Reportable 06/08/21 04:25 Plt Morphology Comment Not Reportable 06/08/21 04:25 RBC Morphology Not Reportable 06/08/21 04:25 Dimorphic RBCs Not Reportable 06/08/21 04:25 Polychromasia Not Reportable 06/08/21 04:25 Hypochromasia Not Reportable 06/08/21 04:25 Poikilocytosis Not Reportable 06/08/21 04:25 Anisocytosis Not Reportable 06/08/21 04:25 Microcytosis Not Reportable 06/08/21 04:25 Macrocytosis Not Reportable 06/08/21 04:25 Spherocytes Not Reportable 06/08/21 04:25 Pappenheimer Bodies Not Reportable 06/08/21 04:25 Sickle Cells Not Reportable 06/08/21 04:25 Target Cells Not Reportable 06/08/21 04:25 Tear Drop Cells Not Reportable 06/08/21 04:25 Ovalocytes Not Reportable 06/08/21 04:25 Helmet Cells Not Reportable 06/08/21 04:25 Tor[place]io-[place] Bodies Not Reportable 06/08/21 04:25 [place] Rings Not Reportable 06/08/21 04:25 [place] Cells Not Reportable 06/08/21 04:25 Bite Cells Not Reportable 06/08/21 04:25 Crenated Cell Not Reportable 06/08/21 04:25 Elliptocytes Not Reportable 06/08/21 04:25 Acanthocytes (Spur) Not Reportable 06/08/21 04:25 Rouleaux Not Reportable 06/08/21 04:25 Hemoglobin C Crystals Not Reportable 06/08/21 04:25 Schistocytes Not Reportable 06/08/21 04:25 Malaria parasites Not Reportable 06/08/21 04:25 Shravan Bodies Not Reportable 06/08/21 04:25 Hem Pathologist Commnt No 06/08/21 04:25 PT 14.6 Sec. (12.2-14.9) 06/09/21 05:20 INR 1.09 (0.87-1.13) 06/09/21 05:20 APTT 72.2 Sec. (24.2-36.6) H* 06/05/21 12:20 D-Dimer > 65385 ng/mlDDU (0-234) H 05/25/21 09:21 Heparin Anti-Xa Level 0.65 U.I./ml (0.3-0.7) 06/09/21 05:20 ABG pH 7.481 (7.320-7.450) H 06/02/21 04:13 POC ABG pCO2 36.9 mmHg (32.0-48.0) 06/02/21 04:13 ABG pCO2 30.3 mm Hg 05/29/21 05:28 POC ABG pO2 80.0 mmHg (83-108) L 06/02/21 04:13 ABG pO2 96.2 mm Hg (80.0-90.0) H 05/29/21 05:28 POC ABG HCO3 26.9 06/02/21 04:13 ABG HCO3 24.0 mmol/L (20.0-26.0) 05/29/21 05:28 ABG O2 Saturation 95.7 (0-100) 06/02/21 04:13 ABG O2 Content 10.3 (0.0-44) 05/29/21 05:28 POC ABG Base Excess 3.4 06/02/21 04:13 ABG Base Excess 1.2 mmol/L (-2.0-3.0) 05/29/21 05:28 ABG Hemoglobin 11.1 (12.0-17.5) L 06/02/21 04:13 ABG Oxyhemoglobin 95.2 (94-98) 06/02/21 04:13 ABG Carboxyhemoglobin 1.6 % (0.0-5.0) 05/29/21 05:28 ABG Methemoglobin 0.3 (0.0-1.5) 06/02/21 04:13 ABG Sodium 131.9 mmol/L (136.0-145.0) L 06/02/21 04:13 ABG Potassium 3.8 mmol/L (3.40-4.50) 06/02/21 04:13 ABG Chloride 98.0 mmol/L (98-107) 06/02/21 04:13 ABG Glucose 231 mg/dL (65-95) H 06/02/21 04:13 Oxyhemoglobin 96.0 % (95.0-99.0) 05/29/21 05:28 Carboxyhemoglobin 0.2 (0.5-1.5) L 06/02/21 04:13 FiO2 30 % 05/29/21 05:28 FiO2 % 30.0 06/02/21 04:13 Sodium 138 mmol/L (137-145) 06/09/21 05:20 Potassium 5.2 mmol/L (3.6-5.0) H 06/09/21 05:20 Chloride 98.3 mmol/L (98-107) 06/09/21 05:20 Carbon Dioxide 27 mmol/L (22-30) 06/09/21 05:20 Anion Gap 18 mmol/L 06/09/21 05:20 BUN 69 mg/dL (7-17) H 06/09/21 05:20 Creatinine 1.1 mg/dL (0.6-1.2) 06/09/21 05:20 Estimated GFR 60 ml/min 06/09/21 05:20 BUN/Creatinine Ratio 63 % 06/09/21 05:20 Glucose 163 mg/dL (65-100) H 06/09/21 05:20 POC Glucose 154 mg/dL (70-105) H 06/09/21 05:16 Lactic Acid 2.30 mmol/L (0.7-2.0) H* 05/26/21 05:49 Calcium 8.5 mg/dL (8.4-10.2) 06/09/21 05:20 Ferritin 321.6 ng/mL (10.0-200.0) H 05/25/21 09:21 Total Bilirubin 0.30 mg/dL (0.1-1.2) 06/06/21 04:57 Direct Bilirubin < 0.2 mg/dL (0-0.2) 05/25/21 09:21 Indirect Bilirubin 0.2 mg/dL 05/25/21 09:21 AST 99 units/L (5-40) H 06/06/21 04:57 ALT 136 units/L (7-56) H 06/06/21 04:57 Alkaline Phosphatase 312 units/L (35-129) H 06/06/21 04:57 Lactate Dehydrogenase 445 units/L (91-180) H 05/25/21 09:21 Troponin T 0.226 ng/mL (0.00-0.029) H* D 05/25/21 15:19 C-Reactive Protein 28.90 mg/dL (0.00-1.30) H 06/07/21 14:52 NT-Pro-B Natriuret Pep 173.2 pg/mL (0-900) 05/25/21 09:21 Total Protein 6.1 g/dL (6.3-8.2) L 06/06/21 04:57 Albumin 3.1 g/dL (3.9-5) L 06/06/21 04:57 Albumin/Globulin Ratio 1.0 % 06/06/21 04:57 Triglycerides 124 mg/dL (2-149) 05/30/21 11:19 Cholesterol 198 mg/dL (50-199) 05/25/21 15:19 LDL Cholesterol Direct 80 mg/dL (50-130) 05/25/21 15:19 HDL Cholesterol 64 mg/dL (40-59) H 05/25/21 15:19 Cholesterol/HDL Ratio 3.09 % 05/25/21 15:19 Procalcitonin 0.36 ng/mL (<0.15) 06/07/21 14:52 Arterial Blood Glucose 231 mg/dL (65-95) H 06/02/21 04:13 Arterial Blood Ionized Calcium 4.6 mg/dL (4.6-5.3) 06/02/21 04:13 Urine Color Straw (Yellow) 05/25/21 10:42 Urine Turbidity Clear (Clear) 05/25/21 10:42 Urine pH 6.0 (5.0-7.0) 05/25/21 10:42 Ur Specific [place] 1.007 (1.003-1.030) 05/25/21 10:42 Urine Protein 100 mg/dl mg/dL (Negative) 05/25/21 10:42 Urine Glucose (UA) >=500 mg/dL (Negative) 05/25/21 10:42 Urine Ketones Neg mg/dL (Negative) 05/25/21 10:42 Urine Blood Mod (Negative) 05/25/21 10:42 Urine Nitrite Neg (Negative) 05/25/21 10:42 Ur Reducing Substances Not Reportable 05/25/21 10:42 Urine Bilirubin Neg (Negative) 05/25/21 10:42 Urine Ictotest Not Reportable 05/25/21 10:42 Urine Urobilinogen < 2.0 mg/dL (<2.0) 05/25/21 10:42 Ur Leukocyte Esterase Neg (Negative) 05/25/21 10:42 Urine WBC (Auto) 11.0 /HPF (0.0-6.0) H 05/25/21 10:42 Urine RBC (Auto) 1.0 /HPF (0.0-6.0) 05/25/21 10:42 U Epithel Cells (Auto) < 1.0 /HPF (0-13.0) 05/25/21 10:42 Urine Bacteria (Auto) 4+ /HPF (Negative) 05/25/21 10:42 Urine Mucus Few /HPF 05/25/21 10:42 Coronavirus (PCR) Negative (Negative) 05/30/21 08:15 Blood Type O POSITIVE 05/25/21 14:07 Antibody Screen Negative 05/25/21 14:07 Tan/IV: Voiding Method External Female Catheter Active Medications - Current Medications Current Medications: Generic Name Dose Route Start Last Admin Trade Name Freq PRN Reason Stop Dose Admin Acetaminophen 650 mg 05/25/21 13:48 05/28/21 04:14 Acetaminophen 325 Mg Tab PO 650 mg Q6H PRN Administration Pain MILD(1-3)/Fever >100.5/SOTOMAYOR Lipase/Protease/Amylase 1 each 05/26/21 10:00 Lipase 10,500/Protease 25,000/Amylase 43,750 (Units) Dr Munguia FEEDTUBE PRN PRN For Clogged Feeding Tube Bisacodyl 10 mg 06/08/21 10:00 Bisacodyl 10 Mg Rect Supp ME QDAY PRN Constipation Dextrose 50 ml 05/28/21 14:28 Dextrose 50% In Water (25gm) 50 Ml Syringe IV Q30MIN PRN Hypoglycemia Protocol Docusate Sodium 100 mg 06/08/21 10:00 06/09/21 10:15 Docusate Sodium 100 Mg/10 Ml Oral Liqd PO 100 mg BID ABDIRAHMAN Administration Doxazosin Mesylate 2 mg 06/01/21 12:00 06/09/21 10:15 Doxazosin 1 Mg Tab PO 2 mg BID ABDIRAHMAN Administration Famotidine 20 mg 05/29/21 10:00 06/09/21 10:16 Famotidine 20 Mg Tab FEEDTUBE 20 mg BID ABDIRAHMAN Administration Glycopyrrolate 2 mg 06/01/21 09:00 06/09/21 10:15 Glycopyrrolate 2 Mg Tab PO 2 mg TID ABDIRAHMAN Administration Heparin Sodium (Porcine) 2,700 unit 05/25/21 13:41 05/30/21 17:46 Heparin 10,000 Units/10 Ml Vial 40 unit/kg (2700 unit) 2,520 unit IV Administration Q6H PRN Anti-Xa Assay < 0.1 units/ml Hydralazine HCl 10 mg 06/01/21 11:43 06/07/21 17:23 Hydralazine 20 Mg/1 Ml Inj IV 10 mg Q4HR PRN Administration SBP >160 Hydralazine HCl 50 mg 06/03/21 22:00 06/09/21 06:49 Hydralazine 25 Mg Tab PO 50 mg Q8HR [facility] Administration Hydrophilic Ointment 1 applic 05/25/21 19:04 Lip Therapy Vaseline TP Q2HR PRN Dry Lips Heparin Sodium/Sodium Chloride 25,000 unit in 500 mls @ 20 mls/hr 05/25/21 15:00 06/08/21 06:09 Heparin/ 0.45% Nacl-25,000 Unit/500 Ml IV 1,150 units/hr TITRATE ABDIRAHMAN 23 mls/hr Titration Protocol 1,000 UNITS/HR Insulin Glargine 25 units 06/09/21 22:00 Insulin Glargine 100 Units/Ml SUB-Q DAILY [facility] Insulin Human Lispro 0 unit 05/29/21 12:00 06/09/21 05:45 Insulin Lispro 100 Unit/Ml SUB-Q Not Given Q6HR ABDIRAHMAN Protocol Labetalol HCl 300 mg 06/03/21 13:40 06/09/21 10:16 Labetalol 100 Mg Tab PO 300 mg BID ABDIRAHMAN Administration Levetiracetam 250 mg 06/01/21 22:00 06/09/21 10:14 Levetiracetam 500 Mg/5 Ml Oral Liqd FEEDTUBE 250 mg Q12HR ABDIRAHMAN Administration Lorazepam 2 mg 05/25/21 19:46 05/31/21 03:44 Lorazepam 2 Mg/Ml Vial IV 2 mg ONCE PRN Administration Seizure Multi-Ingred Cream/Lotion/Oil/Oint 1 applic 05/25/21 19:04 Mineral Oil/Petrolatum, White Ophth Oint 3.5 Gm OU Q4HR PRN Dry Eye(s) Polyethylene Glycol 17 gm 06/05/21 11:00 06/09/21 10:14 Polyethylene Glycol 3350 17 Gm Powder PO 17 gm QDAY ABDIRAHMAN Administration Senna/Docusate Sodium 1 tab 05/25/21 22:00 06/09/21 10:15 Sennosides/Docusate Sodium 8.6/50 Mg Tab FEEDTUBE 1 tab BID ABDIRAHMAN Administration Simple Syrup 15 ml 05/26/21 10:00 Simple Syrup 15 Ml FEEDTUBE PRN PRN Hypoglycemia Simple Syrup 30 ml 05/26/21 10:00 Simple Syrup 15 Ml FEEDTUBE PRN PRN Hypoglycemia Sodium Bicarbonate 325 mg 05/26/21 10:00 Sodium Bicarbonate 325 Mg Tab FEEDTUBE PRN PRN For Clogged Feeding Tube Sodium Chloride 10 ml 05/25/21 22:00 06/09/21 10:15 Sodium Chloride 0.9% 10 Ml Flush Syringe IV 10 ml BID ABDIRAHMAN Administration Sodium Chloride 10 ml 05/25/21 13:48 06/04/21 03:57 Sodium Chloride 0.9% 10 Ml Flush Syringe IV 10 ml PRN PRN Administration LINE FLUSH Sodium Polystyrene Sulfonate 30 gm 06/09/21 09:00 06/09/21 10:16 Sodium Polystyrene 15 Gm/60 Ml Oral Liqd PO 06/09/21 13:00 30 gm ONCE@0900 ABDIRAHMAN Administration Valsartan 160 mg 06/01/21 12:00 06/09/21 10:15 Valsartan 160mg Tab PO 160 mg BID ABDIRAHMAN Administration Nutrition/Malnutrition Assess - Dietary Evaluation Nutrition/Malnutrition Findings: Nutrition Notes Start: 05/26/21 09:00 Freq: Status: Active Protocol: Document 06/07/21 12:09 GB (Rec: 06/07/21 12:24 GB [id number]) Nutrition Notes Initial or Follow up Reassessment Current Diagnosis COPD,Diabetes,Sepsis, Hypertension,Respiratory Failure Other Pertinent Diagnosis cardiac arrest, seizure disorder Current Diet NPO, Tube feeding Vital 1.2 @ 50 Labs/Tests 06/07: K 5.4, BUN 55, (glucose 178 -showing improvement) Pertinent Medications NaCl, Na Polystyrene Sulfaonate Height 5 ft 4 in Weight 63 kg [place] Body Weight (kg) 54.54 BMI 23.8 Weight change and time frame -6.6% since admission Weight Status Appropriate Subjective/Other Information Ventilation continues, TF continues, Son(s) approved to visit today Percent of energy/protein needs met: TF goal rate meets 75% or greater of estimated energy needs Burn Absent Trauma Absent GI Symptoms None Food Allergy No Current % PO Other Minimum of two criteria No #1 Nutrition Diagnosis Inadequate oral intake Comments: 06/02: On vent. TF continues. 06/07: Ventilation continues, TF continues. Etiology ARF As Evidenced by Signs and Symptoms pt on vent and unable to consume PO Diagnosis Progress(for reassessment Continues documentation) Is patient on ventilator? Yes Is Patient Ambulatory and/or Out of Bed No REE-([facility]-confined to bed) 1385.676 Kcal/Kg value to use for calculation 23 Approximate Energy Requirements Using 1449 kcal/Kg Calculation Used for Recommendations Kcal/kg Additional Notes Protein: (1-1.5g/kg @63kg) 63- 95g Fluid: 1 ml/kcal or per MD Nutrition Intervention Change Diet Order: Continue NPO Nutrition Support: Vital AF 1.2 at 50 ml/hr Flush 75 ml q4h 06/02: continues 06/07: continues Kcal 1,440 Protein (gm) 90 Fat (gm) 65 Fluid (mL) 973 Goal #1 Meet 75% or greater of protein and energy needs via TF Follow-Up By: 06/14/21 Additional Comments son(s) approved to visit mom today. Pt trach/PEG
--- NOTE | 2021-06-09 15:35 | Progress Note ---
Assessment and Plan - Patient Problems (1) Anoxic brain injury Current Visit: Yes Status: Acute Plan to address problem: 1) Unable to proceed with trach/peg today b/o add on emergency cases. Will reschedule trach/peg for Saturday or Saturday of next week. Subjective Date of service: 06/09/21 Patient Reports: Positive: no new complaints Objective Vital Signs - 12hr 06/09/21 06/09/21 06/09/21 03:46 03:52 04:00 Temperature Pulse Rate 73 73 78 Respiratory 12 12 Rate Blood Pressure 125/51 125/51 116/59 O2 Sat by Pulse 99 99 100 Oximetry 06/09/21 06/09/21 06/09/21 04:16 04:30 04:45 Temperature Pulse Rate 78 74 72 Respiratory 18 11 L 12 Rate Blood Pressure 117/57 133/55 127/52 O2 Sat by Pulse 99 98 97 Oximetry 06/09/21 06/09/21 06/09/21 05:00 05:15 05:30 Temperature Pulse Rate 73 71 78 Respiratory 11 L 12 14 Rate Blood Pressure 127/52 137/51 144/58 O2 Sat by Pulse 97 100 100 Oximetry 06/09/21 06/09/21 06/09/21 05:45 06:00 06:15 Temperature Pulse Rate 77 77 80 Respiratory 12 12 28 H Rate Blood Pressure 141/56 154/58 141/57 O2 Sat by Pulse 98 100 99 Oximetry 06/09/21 06/09/21 06/09/21 06:30 06:49 07:31 Temperature 97.8 F Pulse Rate 73 67 Respiratory 12 Rate Blood Pressure 127/49 134/48 O2 Sat by Pulse 100 Oximetry 06/09/21 06/09/21 06/09/21 07:55 10:15 10:16 Temperature Pulse Rate 79 81 78 Respiratory 17 Rate Blood Pressure 114/47 149/58 174/78 O2 Sat by Pulse 99 Oximetry 06/09/21 06/09/21 06/09/21 12:00 12:06 13:03 Temperature 98.1 F Pulse Rate 80 82 Respiratory 22 Rate Blood Pressure 169/64 173/77 O2 Sat by Pulse 99 Oximetry - Labs 06/09/21 05:20 06/09/21 05:20 Diabetes panel 06/09/21 Range/Units 05:20 Sodium 138 (137-145) mmol/L Potassium 5.2 H (3.6-5.0) mmol/L Chloride 98.3 (98-107) mmol/L Carbon Dioxide 27 (22-30) mmol/L BUN 69 H (7-17) mg/dL Creatinine 1.1 (0.6-1.2) mg/dL Glucose 163 H (65-100) mg/dL Calcium 8.5 (8.4-10.2) mg/dL Calcium panel 06/09/21 Range/Units 05:20 Calcium 8.5 (8.4-10.2) mg/dL Pituitary panel 06/09/21 Range/Units 05:20 Sodium 138 (137-145) mmol/L Potassium 5.2 H (3.6-5.0) mmol/L Chloride 98.3 (98-107) mmol/L Carbon Dioxide 27 (22-30) mmol/L BUN 69 H (7-17) mg/dL Creatinine 1.1 (0.6-1.2) mg/dL Glucose 163 H (65-100) mg/dL Calcium 8.5 (8.4-10.2) mg/dL Adrenal panel 06/09/21 Range/Units 05:20 Sodium 138 (137-145) mmol/L Potassium 5.2 H (3.6-5.0) mmol/L Chloride 98.3 (98-107) mmol/L Carbon Dioxide 27 (22-30) mmol/L BUN 69 H (7-17) mg/dL Creatinine 1.1 (0.6-1.2) mg/dL Glucose 163 H (65-100) mg/dL Calcium 8.5 (8.4-10.2) mg/dL
[2021-06-09] MEDS: METOCLOPRAMIDE 10 MG/2 ML INJ IV SCH ×2 (16:10→22:01)
--- NOTE | 2021-06-09 16:39 | XRay Report ---
ABDOMEN 1 VIEW(S) INDICATION / CLINICAL INFORMATION: Vomiting. COMPARISON: 06/03/2021 FINDINGS: TUBES / LINES: Nasogastric tube terminates in the mid to distal stomach in adequate position. BOWEL GAS PATTERN: 2 limited images are presented. There is mild gaseous distention of what appears t o be the large bowel. No obvious small bowel dilatation. The stomach is decompressed. FREE AIR / EXTRALUMINAL GAS: None seen. ADDITIONAL FINDINGS: No significant additional findings. IMPRESSION: Mild gaseous distention of the colon but no definitive bowel obstruction. Follow-up is recommended. Signer Name: Fabrice Perez Jr, MD Signed: 06/09/2021 4:35 PM Workstation Name: [id number]
[2021-06-09] MEDS: HEPARIN/ 0.45% NACL DRIP 25,000 UNIT/500 ML BAG IV SCH (18:19)
[2021-06-09] MEDS: INSULIN GLARGINE 100 UNITS/ML SUB-Q SCH (23:59)
[2021-06-10] MEDS: INSULIN LISPRO 100 UNIT/ML SUB-Q SCH ×4 (00:01→18:42)
[2021-06-10] MEDS: METOCLOPRAMIDE 10 MG/2 ML INJ IV SCH ×4 (04:00→21:34)
--- NOTE | 2021-06-10 05:28 | XRay Report ---
Abdomen single view INDICATION: Abdominal pain IMPRESSION: The esophagogastric tube terminates within the upper stomach. Signer Name: Zach Onofre MD Signed: 06/10/2021 5:24 AM Workstation Name: [id number]
--- NOTE | 2021-06-10 05:38 | XRay Report ---
CHEST 1 VIEW INDICATION / CLINICAL INFORMATION: F/U, patient intubated. Respiratory distress FINDINGS: SUPPORT DEVICES: No significant change in position. HEART / MEDIASTINUM: The cardiomediastinal silhouette has not significantly changed in the interim. LUNGS / PLEURA: Small pleural parenchymal opacities unchanged from 06/07/2021 Signer Name: Zach Onofre MD Signed: 06/10/2021 5:33 AM Workstation Name: [id number]
[2021-06-10 06:45] LABS: Hemoglobin 8.2 gm/dl (10.1-14.3); Mean Corpuscular HGB Conc 34 % (30-34); Mean Corpuscular Volume 100 fl (79-97); Platelet Count 279 K/mm3 (140-440); Red Blood Count 2.41 M/mm3 (3.65-5.03); Red Cell Distribution Width 15.8 % (13.2-15.2)
[2021-06-10 07:01] LABS: Calcium 8.8 mg/dL (8.4-10.2)
[2021-06-10] MEDS: VALSARTAN 160MG TAB PO SCH (09:38)
[2021-06-10] MEDS: SENNOSIDES/DOCUSATE SODIUM 8.6/50 MG TAB FEEDTUBE SCH ×2 (09:38→21:32)
[2021-06-10] MEDS: GLYCOPYRROLATE 2 MG TAB PO SCH ×3 (09:38→21:32)
[2021-06-10] MEDS: DOXAZOSIN 1 MG TAB PO SCH ×2 (09:38→21:31)
[2021-06-10] MEDS: DOCUSATE SODIUM 100 MG/10 ML ORAL LIQD PO SCH ×2 (09:39→21:31)
[2021-06-10] MEDS: levETIRAcetam 500 MG/5 ML ORAL LIQD FEEDTUBE SCH ×2 (09:39→21:31)
[2021-06-10] MEDS: POLYETHYLENE GLYCOL 3350 17 GM POWDER PO SCH (09:40)
[2021-06-10] MEDS: INSULIN GLARGINE 100 UNITS/ML SUB-Q SCH (09:41)
[2021-06-10] MEDS: FAMOTIDINE 20 MG TAB FEEDTUBE SCH ×2 (09:41→21:31)
--- NOTE | 2021-06-10 11:05 | Progress Note ---
Assessment and Plan 1. Status post out of hospital cardiopulmonary arrest 2. Respiratory failure currently intubated on mechanical ventilator 3. Anoxic encephalopathy 4. Paroxysmal atrial fibrillation currently in sinus rhythm 4. Seizure disorder 5. Essential hypertension Plan. Patient is currently is hemodynamically stable continue supportive cardiac management. Subjective Date of service: 06/10/21 Principal diagnosis: Ac hypoxemic resp failure; Cardiac arrest; Seizures; Sepsis; AMS; A-Fib RVR Interval history: No change in clinical status Objective Vital Signs Temp Pulse Resp BP Pulse Ox 06/10/21 10:30 65 15 156/68 100 06/10/21 10:00 73 16 166/81 100 06/10/21 09:40 67 147/61 06/10/21 09:38 74 147/61 06/10/21 09:30 62 14 147/61 100 06/10/21 09:00 72 15 169/70 100 06/10/21 08:30 69 15 162/66 100 06/10/21 08:00 79 12 170/72 100 06/10/21 07:44 85 174/73 100 06/10/21 07:30 70 12 174/73 99 06/10/21 07:15 98.1 F 06/10/21 07:00 71 12 168/65 99 06/10/21 06:30 76 12 175/75 98 06/10/21 06:00 63 12 137/54 100 06/10/21 05:30 67 12 141/56 100 06/10/21 05:01 74 11 L 170/77 100 06/10/21 04:30 66 12 134/54 99 06/10/21 04:11 79 154/67 100 06/10/21 04:00 98.4 F 67 13 142/56 99 06/10/21 03:30 77 20 154/67 99 06/10/21 03:01 89 14 163/77 100 06/10/21 02:30 68 10 L 120/55 100 06/10/21 02:00 69 12 131/61 100 06/10/21 01:30 70 11 L 153/69 100 06/10/21 01:00 67 9 L 119/54 99 06/10/21 00:46 70 12 143/53 100 06/10/21 00:30 76 13 143/53 100 06/10/21 00:16 73 12 137/57 99 06/10/21 00:00 98.6 F 70 12 137/57 100 06/09/21 23:46 70 12 109/43 99 06/09/21 23:45 68 117/61 98 06/09/21 23:30 69 17 109/43 98 06/09/21 23:16 70 26 H 117/61 98 06/09/21 23:00 82 13 117/61 98 06/09/21 22:46 71 12 143/55 98 06/09/21 22:30 74 12 143/55 99 06/09/21 22:16 79 23 188/73 100 06/09/21 22:00 82 14 188/73 99 06/09/21 21:58 90 170/63 06/09/21 21:57 75 170/63 06/09/21 21:45 77 11 L 170/63 98 06/09/21 21:36 77 12 185/71 97 06/09/21 21:30 85 14 185/71 98 06/09/21 21:16 91 H 14 168/72 98 06/09/21 21:00 79 19 154/79 99 06/09/21 20:45 83 12 133/76 99 06/09/21 20:30 89 12 151/84 98 06/09/21 20:15 81 21 156/72 100 06/09/21 20:00 98.8 F 82 19 153/70 100 06/09/21 19:46 83 16 139/73 98 06/09/21 19:44 88 137/77 98 06/09/21 19:30 85 17 132/75 99 06/09/21 19:16 86 13 134/77 98 06/09/21 19:00 89 15 134/77 99 06/09/21 18:00 81 13 148/73 99 06/09/21 17:45 88 18 166/77 99 06/09/21 17:30 82 12 154/70 98 06/09/21 17:25 98.2 F 06/09/21 17:15 87 17 172/77 100 06/09/21 17:00 85 12 154/67 99 06/09/21 16:45 92 H 14 164/72 99 06/09/21 16:30 92 H 12 175/74 99 06/09/21 16:26 93 H 154/67 100 10/01/21 16:15 154/67 100 06/09/21 16:00 90 15 170/74 98 06/09/21 15:45 96 H 19 151/59 98 06/09/21 15:30 89 20 154/61 89 06/09/21 15:15 94 H 20 201/75 99 06/09/21 15:00 95 H 32 H 182/76 98 06/09/21 14:45 92 H 23 159/71 98 06/09/21 14:30 104 H 32 H 172/78 98 06/09/21 14:15 94 H 22 175/80 97 06/09/21 14:00 93 H 28 H 185/74 98 06/09/21 13:45 90 25 H 171/78 97 06/09/21 13:30 83 20 169/69 96 06/09/21 13:15 83 22 174/67 97 06/09/21 13:03 82 173/77 06/09/21 13:00 87 26 H 173/77 97 06/09/21 12:45 82 22 174/74 98 06/09/21 12:30 76 18 150/60 91 06/09/21 12:15 82 19 175/70 98 06/09/21 12:06 80 22 169/64 99 06/09/21 12:00 98.1 F 73 19 169/64 98 06/09/21 11:45 81 17 175/77 97 06/09/21 11:30 80 22 169/76 96 06/09/21 11:15 91 H 23 155/86 100 - Physical Examination General: Other (Unresponsive, on the vent) HEENT: Positive: Other (Pupils for) Neck: Positive: neck supple Cardiac: Positive: Regular Rate, S1/S2. Negative: S3, S4 Lungs: Positive: clear to auscultation, No Wheeze, Rales, Rhonchi Neuro: Positive: Weakness (Unresponsive, on the vent) Abdomen: Positive: Soft Skin: Positive: Clear Extremities: Absent: edema - Labs and Meds CBC 06/10/21 Range/Units 04:42 WBC 14.5 H (4.5-11.0) K/mm3 RBC 2.41 L (3.65-5.03) M/mm3 Hgb 8.2 L (10.1-14.3) gm/dl Hct 24.0 L (30.3-42.9) % Plt Count 279 (140-440) K/mm3 Comprehensive Metabolic Panel 06/10/21 Range/Units 04:42 Sodium 146 H D (137-145) mmol/L Potassium 3.4 L D (3.6-5.0) mmol/L Chloride 101.6 (98-107) mmol/L Carbon Dioxide 23 (22-30) mmol/L BUN 62 H (7-17) mg/dL Creatinine 1.1 (0.6-1.2) mg/dL Glucose 174 H (65-100) mg/dL Calcium 8.8 (8.4-10.2) mg/dL - Allied health notes Allied health notes reviewed: nursing
--- NOTE | 2021-06-10 11:07 | Progress Note ---
Assessment and Plan Assessment and plan: 65-year-old female with PmHx of nonepileptic spells, PTSD, closed head injury, hypertension, diabetes, CAD, who came in s/p cardiac arrest Hospital Course to Date: 06/05/21- Patient remains ETT and on vent support. Off sedation with some improvement in neuro status, but is not following commands. Patient is tolerating SBT trial this am, still on the heparin gtt. AM labs is pending. Patient is still hyperglycemic, increased Qhs lantus. Continue supportive care. 06/06/21- Patient is intubated and on the vent. No longer on sedation, awake but unresponsive, tolerating SBT. Hyperglycemia this am, X1 dose of kayaxalate orderd. Persistent hyperglycemia, insulin adjusted. Continue to monitor electrolytes, repeat BMP this afternoon and am labs ordered. 06/07/21- Patient remains intubated and on the vent. Neuro status is unchanged, spontaneously open yes but is not following commands. SBT trial again, plan to place back on a rate overnight. Leukocytosis noted from this morning lab, stat procalc and CRP ordered, d/w CCM no abx at this time. K 5.4 today, kayalalxate given. Continue to monitor leukocytosis and electrolytes. Am labs ordered 06/08/21- Patient remains intubated and on the vent with no significant change in her neuro status. Patient with no BM in 7days, abdominal soft with positive bowel sounds, colace added and PRN ducolax Supp PRN. Continue to monitor leukocytosis and electrolytes, am labs ordered. Plan for trach and PEG, surgery consulted. 06/09/21- Patient remains stable, intubated with no significant change in neuro status. Trach and Peg cancelled for today. Plan for possibly next week. Hyperkalemia again today, chart review for possible meds interaction. X1 dose of kayexalate ordered. Still no BM today. Episode of emesis today, TF held and NGT to LIS until tommorrow. Orders place for KUB today and Chest XR for the morning. Morning labs ordered. 06/10: Continue supportive care. Trach and PEG planned for early next week. KUB and x-ray with no significant change. Opacity still persist. Critical care management noted. Patient still persistent leukocytosis we will continue to monitor mild hypokalemia noted will replace with potassium. Also noted mild hypernatremia. 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 - Per Neuro 05/29 EEG no sign of seizures - Patient is off sedation, open eyes spontaneously, pupils reactive, with +gag and cough. - Not following commands, no movement to stimuli - Continue Keppra and PRN ativan for seizure - Continue Supportive care #CV: s/p Cardiac Arrest #AFIB with RVR- resolved #Hypertension - Remains SR on the monitor - Normotensive - Continue antihypertensives: Labetalol, Hydralazine, valsartan, & Doxazosin - PRN hydralazine for SBP> 160 - Continue AC- Heparin gtt per protocol - Cardio is following #Resp.: Acute Hypoxemic Respitaroy Failure s/p cardiac Arrest #Bilateral Lower Lobe Infiltrates- improved - 05/25 ETT- Vent setting: PRVC- 30%,8,12,400 - 05/29 CXR- improved lung aeration - Patient is tolerating breathing trial, continue daily SBT - ABG per [facility] - F/U CXR in the am - Continue supplemental O2 for SPO2 goal>90% - D/w [facility] rec Trach and PEG-Family at bedside CCM discussed plan with family - [facility] spoke with Patient's son- Plan for Trach and PEG possibly next week - Surgery consulted - Case management for LTACH placement #GI: Abdominal distention possibly due to Constipation #Vomitting- resolved - last documented BM 06/01 - 06/03 KUB showed no sign. abnormality - Bowel Regimen- senokot, Miralax - Added Colace, and PRN Ducolax supp - TF at goal - Continue PPI- pecid #: Hyperkalemia- - 06/06 K 5.7; X1 dose of kayexalate via NGT - 06/08 K 4.5 today - 06/09 K 5.2- X1 dose of kayexalate - Purewick in placed - Continue strict I&Os - Continue to monitor renal function and electrolytes, am labs ordered #ID: Leukocytosis #Sepsis- resolved #Bilateral Lower Lobe Infiltrates- improved - 05/25 Bcultx2-neg; 05/25 Tracheal aspirate-neg; 05/25 Urine cult- neg - 05/29 CXR- improved lung aeration - WBCs trending down; 06/06 Wbcs 15.7 06/07 Wbcs 21.5 - Leukocytosis down trending 15 today - 06/07 CRP 28.90 and procal 0.36 - Afebrile TMAX 99.6, not on pressors - d/w CCM no abx at this time. - Continue to monitor- AM labs ordered #Endo: Hyperglycemia; H/o DM - Remains hyperglycemic - On high dose SSI Q6hrs - increased Lantus to 25units- Will reassess in the am #DVT prophylaxis - SCDs to bilateral lower extremities while in bed - Continue AC- heparin gtt The high probability of a clinically significant, sudden or life threatening deterioration of the [neuro, Pulmo, GI, Endo] system(s) required my full and direct attention, intervention and personal management. The aggregate critical care time was [35] minutes. This time is in addition to time spent performing reported procedures but includes the following: [x] Data Review and interpretation [x] Patient assessment and monitoring of vital signs [x] Documentation [x] Medication orders and management Disposition Plan: ICU Total Time Spent with Patient (Minutes): 35 History Interval history: Patient seen and examined remains on full ventilatory support Unfortunately no clinical improvement. Had an episode of vomiting yesterday. Hospitalist Physical - Physical exam Narrative exam: VITAL SIGNS: Reviewed. GENERAL: The patient appears normally developed otherwise critically ill chronically on full ventilatory support via ET tube vital signs as documented. HEAD: No signs of head trauma. EYES: Pupils are equal. EARS: Hearing grossly intact. MOUTH: Tongue is protuberant, oropharynx is normal. NECK: No adenopathy, no JVD. CHEST: Chest with clear breath sounds bilaterally. No wheezes, rales, or r honchi. CARDIAC: Regular rate and rhythm. S1 and S2, without murmurs, gallops, or rubs. VASCULAR: No Edema. Peripheral pulses normal and equal in all extremities. ABDOMEN: Soft, non tender and non distended. No rebound or guarding, and no masses palpated. Bowel Sounds normal. MUSCULOSKELETAL: Good range of motion of all major joints. Extremities without clubbing, cyanosis. With trace edema. NEUROLOGIC EXAM: Markedly encephalopathic unable to examine despite no sedation PSYCHIATRIC: Unable to assess SKIN: detail exam as documented in skin assessment - Constitutional Vitals: Temp Pulse Resp BP Pulse Ox 98.1 F 65 15 156/68 100 06/10/21 07:15 06/10/21 10:30 06/10/21 10:30 06/10/21 10:30 06/10/21 10:30 General appearance: Present: no acute distress HEART Score - HEART Score Troponin: Troponin T 0.226 ng/mL (0.00-0.029) H* D 05/25/21 15:19 Results - Labs CBC & Chem 7: 06/10/21 04:42 06/10/21 04:42 Labs: Laboratory Last Values WBC 14.5 K/mm3 (4.5-11.0) H 06/10/21 04:42 RBC 2.41 M/mm3 (3.65-5.03) L 06/10/21 04:42 Hgb 8.2 gm/dl (10.1-14.3) L 06/10/21 04:42 Hct 24.0 % (30.3-42.9) L 06/10/21 04:42 MCV 100 fl (79-97) H 06/10/21 04:42 MCH 34 pg (28-32) H 06/10/21 04:42 MCHC 34 % (30-34) 06/10/21 04:42 RDW 15.8 % (13.2-15.2) H 06/10/21 04:42 Plt Count 279 K/mm3 (140-440) 06/10/21 04:42 Lymph % (Auto) 14.3 % (13.4-35.0) 05/28/21 04:00 Cecil % (Auto) 6.9 % (0.0-7.3) 05/28/21 04:00 Eos % (Auto) 0.1 % (0.0-4.3) 05/28/21 04:00 Baso % (Auto) 0.5 % (0.0-1.8) 05/28/21 04:00 Lymph # (Auto) 1.9 K/mm3 (1.2-5.4) 05/28/21 04:00 Cecil # (Auto) 0.9 K/mm3 (0.0-0.8) H 05/28/21 04:00 Eos # (Auto) 0.0 K/mm3 (0.0-0.4) 05/28/21 04:00 Baso # (Auto) 0.1 K/mm3 (0.0-0.1) 05/28/21 04:00 Add Manual Diff Complete 06/08/21 04:25 Total Counted 100 06/08/21 04:25 Seg Neutrophils % 78.2 % (40.0-70.0) H 05/28/21 04:00 Seg Neuts % (Manual) 76.0 % (40.0-70.0) H 06/08/21 04:25 Band Neutrophils % 4.0 % 06/08/21 04:25 Lymphocytes % (Manual) 6.0 % (13.4-35.0) L 06/08/21 04:25 Monocytes % (Manual) 8.0 % (0.0-7.3) H 06/08/21 04:25 Eosinophils % (Manual) 1.0 % (0.0-4.3) 06/08/21 04:25 Metamyelocytes % 3.0 % 06/08/21 04:25 Myelocytes % 2.0 % 06/08/21 04:25 Nucleated RBC % Not Reportable 06/08/21 04:25 Seg Neutrophils # 10.6 K/mm3 (1.8-7.7) H 05/28/21 04:00 Seg Neutrophils # Man 12.0 K/mm3 (1.8-7.7) H 06/08/21 04:25 Band Neutrophils # 0.6 K/mm3 06/08/21 04:25 Lymphocytes # (Manual) 0.9 K/mm3 (1.2-5.4) L 06/08/21 04:25 Abs React Lymphs (Man) 0.0 K/mm3 06/08/21 04:25 Monocytes # (Manual) 1.3 K/mm3 (0.0-0.8) H 06/08/21 04:25 Eosinophils # (Manual) 0.2 K/mm3 (0.0-0.4) 06/08/21 04:25 Basophils # (Manual) 0.0 K/mm3 (0.0-0.1) 06/08/21 04:25 Metamyelocytes # 0.5 K/mm3 06/08/21 04:25 Myelocytes # 0.3 K/mm3 06/08/21 04:25 Promyelocytes # 0.0 K/mm3 06/08/21 04:25 Blast Cells # 0.0 K/mm3 06/08/21 04:25 WBC Morphology Not Reportable 06/08/21 04:25 Hypersegmented Neuts Not Reportable 06/08/21 04:25 Hyposegmented Neuts Not Reportable 06/08/21 04:25 Hypogranular Neuts Not Reportable 06/08/21 04:25 Smudge Cells Not Reportable 06/08/21 04:25 Toxic Granulation Not Reportable 06/08/21 04:25 Toxic Vacuolation Not Reportable 06/08/21 04:25 Dohle Bodies Not Reportable 06/08/21 04:25 Pelger-Huet Anomaly Not Reportable 06/08/21 04:25 Peter Rods Not Reportable 06/08/21 04:25 Platelet Estimate Consistent w auto 06/08/21 04:25 Clumped Platelets Not Reportable 06/08/21 04:25 Plt Clumps, EDTA Not Reportable 06/08/21 04:25 Large Platelets Not Reportable 06/08/21 04:25 Giant Platelets Not Reportable 06/08/21 04:25 Platelet Satelliting Not Reportable 06/08/21 04:25 Plt Morphology Comment Not Reportable 06/08/21 04:25 RBC Morphology Not Reportable 06/08/21 04:25 Dimorphic RBCs Not Reportable 06/08/21 04:25 Polychromasia Not Reportable 06/08/21 04:25 Hypochromasia Not Reportable 06/08/21 04:25 Poikilocytosis Not Reportable 06/08/21 04:25 Anisocytosis Not Reportable 06/08/21 04:25 Microcytosis Not Reportable 06/08/21 04:25 Macrocytosis Not Reportable 06/08/21 04:25 Spherocytes Not Reportable 06/08/21 04:25 Pappenheimer Bodies Not Reportable 06/08/21 04:25 Sickle Cells Not Reportable 06/08/21 04:25 Target Cells Not Reportable 06/08/21 04:25 Tear Drop Cells Not Reportable 06/08/21 04:25 Ovalocytes Not Reportable 06/08/21 04:25 Helmet Cells Not Reportable 06/08/21 04:25 Toribio-Rose [place] Bodies Not Reportable 06/08/21 04:25 Watkins Rings Not Reportable 06/08/21 04:25 [place] Cells Not Reportable 06/08/21 04:25 Bite Cells Not Reportable 06/08/21 04:25 Crenated Cell Not Reportable 06/08/21 04:25 Elliptocytes Not Reportable 06/08/21 04:25 Acanthocytes (Spur) Not Reportable 06/08/21 04:25 Rouleaux Not Reportable 06/08/21 04:25 Hemoglobin C Crystals Not Reportable 06/08/21 04:25 Schistocytes Not Reportable 06/08/21 04:25 Malaria parasites Not Reportable 06/08/21 04:25 Shravan Bodies Not Reportable 06/08/21 04:25 Hem Pathologist Commnt No 06/08/21 04:25 PT 14.6 Sec. (12.2-14.9) 06/09/21 05:20 INR 1.09 (0.87-1.13) 06/09/21 05:20 APTT 72.2 Sec. (24.2-36.6) H* 06/05/21 12:20 D-Dimer > 41572 ng/mlDDU (0-234) H 05/25/21 09:21 Heparin Anti-Xa Level 0.69 U.I./ml (0.3-0.7) 06/10/21 04:42 ABG pH 7.481 (7.320-7.450) H 06/02/21 04:13 POC ABG pCO2 36.9 mmHg (32.0-48.0) 06/02/21 04:13 ABG pCO2 30.3 mm Hg 05/29/21 05:28 POC ABG pO2 80.0 mmHg (83-108) L 06/02/21 04:13 ABG pO2 96.2 mm Hg (80.0-90.0) H 05/29/21 05:28 POC ABG HCO3 26.9 06/02/21 04:13 ABG HCO3 24.0 mmol/L (20.0-26.0) 05/29/21 05:28 ABG O2 Saturation 95.7 (0-100) 06/02/21 04:13 ABG O2 Content 10.3 (0.0-44) 05/29/21 05:28 POC ABG Base Excess 3.4 06/02/21 04:13 ABG Base Excess 1.2 mmol/L (-2.0-3.0) 05/29/21 05:28 ABG Hemoglobin 11.1 (12.0-17.5) L 06/02/21 04:13 ABG Oxyhemoglobin 95.2 (94-98) 06/02/21 04:13 ABG Carboxyhemoglobin 1.6 % (0.0-5.0) 05/29/21 05:28 ABG Methemoglobin 0.3 (0.0-1.5) 06/02/21 04:13 ABG Sodium 131.9 mmol/L (136.0-145.0) L 06/02/21 04:13 ABG Potassium 3.8 mmol/L (3.40-4.50) 06/02/21 04:13 ABG Chloride 98.0 mmol/L (98-107) 06/02/21 04:13 ABG Glucose 231 mg/dL (65-95) H 06/02/21 04:13 Oxyhemoglobin 96.0 % (95.0-99.0) 05/29/21 05:28 Carboxyhemoglobin 0.2 (0.5-1.5) L 06/02/21 04:13 FiO2 30 % 05/29/21 05:28 FiO2 % 30.0 06/02/21 04:13 Sodium 146 mmol/L (137-145) H D 06/10/21 04:42 Potassium 3.4 mmol/L (3.6-5.0) L D 06/10/21 04:42 Chloride 101.6 mmol/L (98-107) 06/10/21 04:42 Carbon Dioxide 23 mmol/L (22-30) 06/10/21 04:42 Anion Gap 25 mmol/L 06/10/21 04:42 BUN 62 mg/dL (7-17) H 06/10/21 04:42 Creatinine 1.1 mg/dL (0.6-1.2) 06/10/21 04:42 Estimated GFR 60 ml/min 06/10/21 04:42 BUN/Creatinine Ratio 56 % 06/10/21 04:42 Glucose 174 mg/dL (65-100) H 06/10/21 04:42 POC Glucose 149 mg/dL (70-105) H 06/10/21 05:36 Lactic Acid 2.30 mmol/L (0.7-2.0) H* 05/26/21 05:49 Calcium 8.8 mg/dL (8.4-10.2) 06/10/21 04:42 Ferritin 321.6 ng/mL (10.0-200.0) H 05/25/21 09:21 Total Bilirubin 0.30 mg/dL (0.1-1.2) 06/06/21 04:57 Direct Bilirubin < 0.2 mg/dL (0-0.2) 05/25/21 09:21 Indirect Bilirubin 0.2 mg/dL 05/25/21 09:21 AST 99 units/L (5-40) H 06/06/21 04:57 ALT 136 units/L (7-56) H 06/06/21 04:57 Alkaline Phosphatase 312 units/L (35-129) H 06/06/21 04:57 Lactate Dehydrogenase 445 units/L (91-180) H 05/25/21 09:21 Troponin T 0.226 ng/mL (0.00-0.029) H* D 05/25/21 15:19 C-Reactive Protein 28.90 mg/dL (0.00-1.30) H 06/07/21 14:52 NT-Pro-B Natriuret Pep 173.2 pg/mL (0-900) 05/25/21 09:21 Total Protein 6.1 g/dL (6.3-8.2) L 06/06/21 04:57 Albumin 3.1 g/dL (3.9-5) L 06/06/21 04:57 Albumin/Globulin Ratio 1.0 % 06/06/21 04:57 Triglycerides 124 mg/dL (2-149) 05/30/21 11:19 Cholesterol 198 mg/dL (50-199) 05/25/21 15:19 LDL Cholesterol Direct 80 mg/dL (50-130) 05/25/21 15:19 HDL Cholesterol 64 mg/dL (40-59) H 05/25/21 15:19 Cholesterol/HDL Ratio 3.09 % 05/25/21 15:19 Procalcitonin 0.36 ng/mL (<0.15) 06/07/21 14:52 Arterial Blood Glucose 231 mg/dL (65-95) H 06/02/21 04:13 Arterial Blood Ionized Calcium 4.6 mg/dL (4.6-5.3) 06/02/21 04:13 Urine Color Straw (Yellow) 05/25/21 10:42 Urine Turbidity Clear (Clear) 05/25/21 10:42 Urine pH 6.0 (5.0-7.0) 05/25/21 10:[address] [place] 1.007 (1.003-1.030) 05/25/21 10:42 Urine Protein 100 mg/dl mg/dL (Negative) 05/25/21 10:42 Urine Glucose (UA) >=500 mg/dL (Negative) 05/25/21 10:42 Urine Ketones Neg mg/dL (Negative) 05/25/21 10:42 Urine Blood Mod (Negative) 05/25/21 10:42 Urine Nitrite Neg (Negative) 05/25/21 10:42 Ur Reducing Substances Not Reportable 05/25/21 10:42 Urine Bilirubin Neg (Negative) 05/25/21 10:42 Urine Ictotest Not Reportable 05/25/21 10:42 Urine Urobilinogen < 2.0 mg/dL (<2.0) 05/25/21 10:42 Ur Leukocyte Esterase Neg (Negative) 05/25/21 10:42 Urine WBC (Auto) 11.0 /HPF (0.0-6.0) H 05/25/21 10:42 Urine RBC (Auto) 1.0 /HPF (0.0-6.0) 05/25/21 10:42 U Epithel Cells (Auto) < 1.0 /HPF (0-13.0) 05/25/21 10:42 Urine Bacteria (Auto) 4+ /HPF (Negative) 05/25/21 10:42 Urine Mucus Few /HPF 05/25/21 10:42 Coronavirus (PCR) Negative (Negative) 05/30/21 08:15 Blood Type O POSITIVE 05/25/21 14:07 Antibody Screen Negative 05/25/21 14:07 Tan/IV: Voiding Method External Female Catheter Active Medications - Current Medications Current Medications: Generic Name Dose Route Start Last Admin Trade Name Freq PRN Reason Stop Dose Admin Acetaminophen 650 mg 05/25/21 13:48 05/28/21 04:14 Acetaminophen 325 Mg Tab PO 650 mg Q6H PRN Administration Pain MILD(1-3)/Fever >100.5/SOTOMAYOR Lipase/Protease/Amylase 1 each 05/26/21 10:00 Lipase 10,500/Protease 25,000/Amylase 43,750 (Units) Dr Munguia FEEDTUBE PRN PRN For Clogged Feeding Tube Bisacodyl 10 mg 06/08/21 10:00 Bisacodyl 10 Mg Rect Supp [place] QDAY PRN Constipation Dextrose 50 ml 05/28/21 14:28 Dextrose 50% In Water (25gm) 50 Ml Syringe IV Q30MIN PRN Hypoglycemia Protocol Docusate Sodium 100 mg 06/08/21 10:00 06/10/21 09:39 Docusate Sodium 100 Mg/10 Ml Oral Liqd PO 100 mg BID ABDIRAHMAN Administration Doxazosin Mesylate 2 mg 06/01/21 12:00 06/10/21 09:38 Doxazosin 1 Mg Tab PO 2 mg BID ABDIRAHMAN Administration Famotidine 20 mg 05/29/21 10:00 06/10/21 09:41 Famotidine 20 Mg Tab FEEDTUBE 20 mg BID ABDIRAHMAN Administration Glycopyrrolate 2 mg 06/01/21 09:00 06/10/21 09:38 Glycopyrrolate 2 Mg Tab PO 2 mg TID ABDIRAHMAN Administration Heparin Sodium (Porcine) 2,700 unit 05/25/21 13:41 05/30/21 17:46 Heparin 10,000 Units/10 Ml Vial 40 unit/kg (2700 unit) 2,520 unit IV Administration Q6H PRN Anti-Xa Assay < 0.1 units/ml Hydralazine HCl 10 mg 06/01/21 11:43 06/07/21 17:23 Hydralazine 20 Mg/1 Ml Inj IV 10 mg Q4HR PRN Administration SBP >160 Hydralazine HCl 50 mg 06/03/21 22:00 06/09/21 21:58 Hydralazine 25 Mg Tab PO 50 mg Q8HR ABDIRAHMAN Administration Hydrophilic Ointment 1 applic 05/25/21 19:04 Lip Therapy Vaseline TP Q2HR PRN Dry Lips Heparin Sodium/Sodium Chloride 25,000 unit in 500 mls @ 20 mls/hr 05/25/21 15:00 06/09/21 18:19 Heparin/ 0.45% Nacl-25,000 Unit/500 Ml IV 1,150 units/hr TITRATE ABDIRAHMAN 23 mls/hr Administration Protocol 1,000 UNITS/HR Insulin Glargine 25 units 06/09/21 22:00 06/10/21 09:41 Insulin Glargine 100 Units/Ml SUB-Q Not Given DAILY [facility] Insulin Human Lispro 0 unit 05/29/21 12:00 06/10/21 00:01 Insulin Lispro 100 Unit/Ml SUB-Q Not Given Q6HR [facility] Protocol Labetalol HCl 300 mg 06/03/21 13:40 06/10/21 09:40 Labetalol 100 Mg Tab PO 300 mg BID ABDIRAHMAN Administration Levetiracetam 250 mg 06/01/21 22:00 06/10/21 09:39 Levetiracetam 500 Mg/5 Ml Oral Liqd FEEDTUBE 250 mg Q12HR ABDIRAHMAN Administration Metoclopramide HCl 5 mg 06/09/21 16:00 06/10/21 09:41 Metoclopramide 10 Mg/2 Ml Inj IV 5 mg Q6H ABDIRAHMAN Administration Multi-Ingred Cream/Lotion/Oil/Oint 1 applic 05/25/21 19:04 Mineral Oil/Petrolatum, White Ophth Oint 3.5 Gm OU Q4HR PRN Dry Eye(s) Polyethylene Glycol 17 gm 06/05/21 11:00 06/10/21 09:40 Polyethylene Glycol 3350 17 Gm Powder PO 17 gm QDAY ABDIRAHMAN Administration Senna/Docusate Sodium 1 tab 05/25/21 22:00 06/10/21 09:38 Sennosides/Docusate Sodium 8.6/50 Mg Tab FEEDTUBE 1 tab BID ABDIRAHMAN Administration Simple Syrup 15 ml 05/26/21 10:00 Simple Syrup 15 Ml FEEDTUBE PRN PRN Hypoglycemia Simple Syrup 30 ml 05/26/21 10:00 Simple Syrup 15 Ml FEEDTUBE PRN PRN Hypoglycemia Sodium Bicarbonate 325 mg 05/26/21 10:00 Sodium Bicarbonate 325 Mg Tab FEEDTUBE PRN PRN For Clogged Feeding Tube Sodium Chloride 10 ml 05/25/21 22:00 06/10/21 09:40 Sodium Chloride 0.9% 10 Ml Flush Syringe IV 10 ml BID ABDIRAHMAN Administration Sodium Chloride 10 ml 05/25/21 13:48 06/04/21 03:57 Sodium Chloride 0.9% 10 Ml Flush Syringe IV 10 ml PRN PRN Administration LINE FLUSH Valsartan 160 mg 06/01/21 12:00 06/10/21 09:38 Valsartan 160mg Tab PO 160 mg BID ABDIRAHMAN Administration Nutrition/Malnutrition Assess - Dietary Evaluation Nutrition/Malnutrition Findings: Nutrition Notes Start: 05/26/21 09:00 Freq: Status: Active Protocol: Document 06/07/21 12:09 GB (Rec: 06/07/21 12:24 GB [id number]) Nutrition Notes Initial or Follow up Reassessment Current Diagnosis COPD,Diabetes,Sepsis, Hypertension,Respiratory Failure Other Pertinent Diagnosis cardiac arrest, seizure disorder Current Diet NPO, Tube feeding Vital 1.2 @ 50 Labs/Tests 06/07: K 5.4, BUN 55, (glucose 178 -showing improvement) Pertinent Medications NaCl, Na Polystyrene Sulfaonate Height 5 ft 4 in Weight 63 kg [place] Body Weight (kg) 54.54 BMI 23.8 Weight change and time frame -6.6% since admission Weight Status Appropriate Subjective/Other Information Ventilation continues, TF continues, Son(s) approved to visit today Percent of energy/protein needs met: TF goal rate meets 75% or greater of estimated energy needs Burn Absent Trauma Absent GI Symptoms None Food Allergy No Current % PO Other Minimum of two criteria No #1 Nutrition Diagnosis Inadequate oral intake Comments: 06/02: On vent. TF continues. 06/07: Ventilation continues, TF continues. Etiology ARF As Evidenced by Signs and Symptoms pt on vent and unable to consume PO Diagnosis Progress(for reassessment Continues documentation) Is patient on ventilator? Yes Is Patient Ambulatory and/or Out of Bed No REE-([facility]-confined to bed) 1385.676 Kcal/Kg value to use for calculation 23 Approximate Energy Requirements Using 1449 kcal/Kg Calculation Used for Recommendations Kcal/kg Additional Notes Protein: (1-1.5g/kg @63kg) 63- 95g Fluid: 1 ml/kcal or per MD Nutrition Intervention Change Diet Order: Continue NPO Nutrition Support: Vital AF 1.2 at 50 ml/hr Flush 75 ml q4h 06/02: continues 06/07: continues Kcal 1,440 Protein (gm) 90 Fat (gm) 65 Fluid (mL) 973 Goal #1 Meet 75% or greater of protein and energy needs via TF Follow-Up By: 06/14/21 Additional Comments son(s) approved to visit mom today. Pt trach/PEG
[2021-06-10] MEDS ORDERED: POTASSIUM CHLORIDE ER 20 MEQ TAB PO ONE (12:00)
[2021-06-10] MEDS: hydrALAZINE 25 MG TAB PO SCH ×2 (14:33→21:30)
--- NOTE | 2021-06-10 14:59 | Progress Note ---
Assessment and Plan Acute hypoxemic respiratory failure on MVS Cardiopulmonary arrest wtih ROSC Seizure disorder Sepsis Toxic metabolic encephalopathy, possible anoxia Atrial fibrillation with RVR Metabolic acidosis Bilateral lower lobe infiltrates - repeat CXR without new infiltrate - KUB with colonic distention no obvious SBO - LTAC evaluation ongoing - Reglan 5mg IV q6h - trickle feeds soon - continue care as below otherwise; - daily SAT and SBT assessment as tolerated - continue to wean supplemental oxygen for target O2 sat's > 90% acutely - VAP bundle addressed - continue lung protective strategies - continue bronchodilators with pulmonary hygiene per RT - wean per pulmonary driven protocols otherwise - continue accuchecks with glycemic control per SSI (While critically ill target blood glucose of 140-180 mg/dL; avoid hypoglycemia) - sedation prn for target RASS 0 to -1 - avoid nephrotoxins, renally dose all medications - continue scopolamine for secretion control - continue Keppra as AED - continue to avoid benzodiazepine's, reduce the possibility of delirium - AB's per ID rec's - prn analgesia per CPOT score - Maintenance of sleep-wake cycle, avoid delirium - continue enteral nutritional support at goal rate as tolerated - G.I. & VTE prophylaxis - PT/OT/ROM exercises - continue mobility protocols for pressure ulcer prophylaxis - Monitor hemodynamics closely - continue other care per attending / other consultants - discharge planning ongoing concurrently COVID SPECIFIC INTERVENTIONS - COVID-19 PCR negative .... Re-evaluate in am & prn CONDITION: CRITICAL PROGNOSIS: GUARDED CODE STATUS: FULL CODE The high probability of a clinically significant, sudden or life-threatening deterioration of the [respiratory, cardiovascular & neurologic] system(s) required my full and direct attention, intervention and personal management. The aggregate critical care time was [32] minutes without overlap. Time includes spent on; [x] Data Review and interpretation [x] Patient assessment and monitoring of vital signs [x] Documentation [x] Medication orders and management Subjective Date of service: 06/10/21 Principal diagnosis: Ac hypoxemic resp failure; Cardiac arrest; Seizures; Sepsis; AMS; A-Fib RVR Interval history: Patient is seen today for: Acute hypoxemic respiratory failure; Cardiac arrest wtih ROSC; Seizure disorder; Sepsis; AMS; A-Fib with RVR Seen and examined at bedside; 24hour events reviewed; nursing and respiratory care staff consulted; no adverse overnight events reported to me; resting in bed; remains on MVS; failed SBT's today; AMS is persistent; no emesis today; tongue swelling a little better Objective Vital Signs - 12hr 06/10/21 06/10/21 06/10/21 03:01 03:30 04:00 Temperature 98.4 F Pulse Rate 89 77 67 Respiratory 14 20 13 Rate Blood Pressure 163/77 154/67 142/56 O2 Sat by Pulse 100 99 99 Oximetry 06/10/21 06/10/21 06/10/21 04:11 04:30 05:01 Temperature Pulse Rate 79 66 74 Respiratory 12 11 L Rate Blood Pressure 154/67 134/54 170/77 O2 Sat by Pulse 100 99 100 Oximetry 06/10/21 06/10/21 06/10/21 05:30 06:00 06:30 Temperature Pulse Rate 67 63 76 Respiratory 12 12 12 Rate Blood Pressure 141/56 137/54 175/75 O2 Sat by Pulse 100 100 98 Oximetry 06/10/21 06/10/21 06/10/21 07:00 07:15 07:30 Temperature 98.1 F Pulse Rate 71 70 Respiratory 12 12 Rate Blood Pressure 168/65 174/73 O2 Sat by Pulse 99 99 Oximetry 06/10/21 06/10/21 06/10/21 07:44 08:00 08:30 Temperature Pulse Rate 85 79 69 Respiratory 12 15 Rate Blood Pressure 174/73 170/72 162/66 O2 Sat by Pulse 100 100 100 Oximetry 06/10/21 06/10/21 06/10/21 09:00 09:30 09:38 Temperature Pulse Rate 72 62 74 Respiratory 15 14 Rate Blood Pressure 169/70 147/61 147/61 O2 Sat by Pulse 100 100 Oximetry 06/10/21 06/10/21 06/10/21 09:40 10:00 10:30 Temperature Pulse Rate 67 73 65 Respiratory 16 15 Rate Blood Pressure 147/61 166/81 156/68 O2 Sat by Pulse 100 100 Oximetry 06/10/21 06/10/21 06/10/21 11:16 11:54 14:33 Temperature 97.7 F Pulse Rate 60 78 Respiratory 13 Rate Blood Pressure 136/60 175/80 O2 Sat by Pulse 100 Oximetry Constitutional: no acute distress, other (elderly female with mildly increased respiratory effort at rest on MVS) Eyes: non-icteric ENT: oropharynx moist, other (+ midline tracheostomy) Neck: supple, no lymphadenopathy Effort: mildly labored Ascultation: Bilateral: diminished breath sounds, rhonchi Percussion: Bilateral: not dull Cardiovascular: irregular rhythm, other (S1,S2) Gastrointestinal: normoactive bowel sounds, soft, non-tender, other (+ PEG tube; distended but soft) Integumentary: normal Extremities: no cyanosis, pulses normal, no ischemia or petechiae, other (Right femoral CVL) Neurologic: pupils equal and round, other (encephalopathic) Psychiatric: other (unable to assess) CBC and BMP: 06/10/21 04:42 06/10/21 04:42 ABG, PT/INR, D-dimer: ABG ABG pH 7.481 (7.320-7.450) H 06/02/21 04:13 POC ABG pCO2 36.9 mmHg (32.0-48.0) 06/02/21 04:13 ABG pCO2 30.3 mm Hg 05/29/21 05:28 POC ABG pO2 80.0 mmHg (83-108) L 06/02/21 04:13 ABG pO2 96.2 mm Hg (80.0-90.0) H 05/29/21 05:28 POC ABG HCO3 26.9 06/02/21 04:13 ABG O2 Saturation 95.7 (0-100) 06/02/21 04:13 PT/INR, D-dimer PT 14.6 Sec. (12.2-14.9) 06/09/21 05:20 INR 1.09 (0.87-1.13) 06/09/21 05:20 D-Dimer > 37561 ng/mlDDU (0-234) H 05/25/21 09:21 Abnormal lab findings: Abnormal Labs 05/25/21 05/25/21 05/25/21 09:07 09:21 09:21 WBC 17.1 H RBC Hgb Hct MCV 106 H MCH 33 H MCHC RDW 15.6 H [place] # (Auto) Seg Neutrophils % Seg Neuts % (Manual) Lymphocytes % (Manual) Monocytes % (Manual) Seg Neutrophils # Seg Neutrophils # Man 10.1 H Lymphocytes # (Manual) 5.6 H Monocytes # (Manual) PT 15.0 H APTT 44.3 H D-Dimer > 14544 H Heparin Anti-Xa Level ABG pH 7.116 L POC ABG pCO2 POC ABG pO2 ABG pO2 ABG Hemoglobin ABG Oxyhemoglobin 93.7 L ABG Sodium ABG Potassium ABG Chloride ABG Glucose 395 H Carboxyhemoglobin Sodium Potassium Chloride Carbon Dioxide BUN Creatinine Glucose POC Glucose Lactic Acid Calcium Ferritin AST ALT Alkaline Phosphatase Lactate Dehydrogenase Troponin T C-Reactive Protein Total Protein Albumin HDL Cholesterol Arterial Blood Glucose 395 H Arterial Blood Ionized Calcium 4.4 L Urine WBC (Auto) 05/25/21 05/25/21 05/25/21 09:21 09:21 09:21 WBC RBC Hgb Hct MCV MCH MCHC RDW [place] # (Auto) Seg Neutrophils % Seg Neuts % (Manual) Lymphocytes % (Manual) Monocytes % (Manual) Seg Neutrophils # Seg Neutrophils # Man Lymphocytes # (Manual) Monocytes # (Manual) PT APTT D-Dimer Heparin Anti-Xa Level ABG pH POC ABG pCO2 POC ABG pO2 ABG pO2 ABG Hemoglobin ABG Oxyhemoglobin ABG Sodium ABG Potassium ABG Chloride ABG Glucose Carboxyhemoglobin Sodium Potassium Chloride Carbon Dioxide 10 L BUN Creatinine Glucose 423 H 424 H POC Glucose Lactic Acid Calcium 8.2 L Ferritin 321.6 H AST 162 H ALT 119 H Alkaline Phosphatase Lactate Dehydrogenase 445 H Troponin T C-Reactive Protein Total Protein 5.6 L Albumin 3.2 L HDL Cholesterol Arterial Blood Glucose Arterial Blood Ionized Calcium Urine WBC (Auto) 05/25/21 05/25/21 05/25/21 09:35 10:42 11:12 WBC RBC Hgb Hct MCV MCH MCHC RDW [place] # (Auto) Seg Neutrophils % Seg Neuts % (Manual) Lymphocytes % (Manual) Monocytes % (Manual) Seg Neutrophils # Seg Neutrophils # Man Lymphocytes # (Manual) Monocytes # (Manual) PT APTT D-Dimer Heparin Anti-Xa Level ABG pH POC ABG pCO2 POC ABG pO2 ABG pO2 ABG Hemoglobin ABG Oxyhemoglobin ABG Sodium ABG Potassium ABG Chloride ABG Glucose Carboxyhemoglobin Sodium Potassium Chloride Carbon Dioxide BUN Creatinine Glucose POC Glucose Lactic Acid 16.70 H* 7.70 H* Calcium Ferritin AST ALT Alkaline Phosphatase Lactate Dehydrogenase Troponin T C-Reactive Protein Total Protein Albumin HDL Cholesterol Arterial Blood Glucose Arterial Blood Ionized Calcium Urine WBC (Auto) 11.0 H 05/25/21 05/25/21 05/25/21 14:07 15:19 19:04 WBC RBC Hgb Hct MCV MCH MCHC RDW [place] # (Auto) Seg Neutrophils % Seg Neuts % (Manual) Lymphocytes % (Manual) Monocytes % (Manual) Seg Neutrophils # Seg Neutrophils # Man Lymphocytes # (Manual) Monocytes # (Manual) PT APTT D-Dimer Heparin Anti-Xa Level ABG pH POC ABG pCO2 POC ABG pO2 172.2 H ABG pO2 ABG Hemoglobin ABG Oxyhemoglobin 98.7 H ABG Sodium 135.7 L ABG Potassium ABG Chloride ABG Glucose 255 H Carboxyhemoglobin 0.3 L Sodium Potassium Chloride Carbon Dioxide BUN Creatinine Glucose POC Glucose Lactic Acid 3.90 H* Calcium Ferritin AST ALT Alkaline Phosphatase Lactate Dehydrogenase Troponin T 0.226 H* D C-Reactive Protein Total Protein Albumin HDL Cholesterol 64 H Arterial Blood Glucose 255 H Arterial Blood Ionized Calcium 3.8 L Urine WBC (Auto) 05/25/21 05/25/21 05/26/21 21:16 21:16 04:00 WBC RBC Hgb Hct MCV MCH MCHC RDW [place] # (Auto) Seg Neutrophils % Seg Neuts % (Manual) Lymphocytes % (Manual) Monocytes % (Manual) Seg Neutrophils # Seg Neutrophils # Man Lymphocytes # (Manual) Monocytes # (Manual) PT APTT D-Dimer Heparin Anti-Xa Level 1.19 H ABG pH 7.547 H POC ABG pCO2 POC ABG pO2 ABG pO2 ABG Hemoglobin 11.9 L ABG Oxyhemoglobin ABG Sodium 133.2 L ABG Potassium 3.1 L ABG Chloride ABG Glucose 243 H Carboxyhemoglobin 0.3 L Sodium Potassium Chloride Carbon Dioxide BUN Creatinine Glucose POC Glucose Lactic Acid 2.50 H* Calcium Ferritin AST ALT Alkaline Phosphatase Lactate Dehydrogenase Troponin T C-Reactive Protein Total Protein Albumin HDL Cholesterol Arterial Blood Glucose 243 H Arterial Blood Ionized Calcium Urine WBC (Auto) 05/26/21 05/26/21 05/26/21 05:49 05:49 17:33 WBC RBC Hgb Hct MCV MCH MCHC RDW [place] # (Auto) Seg Neutrophils % Seg Neuts % (Manual) Lymphocytes % (Manual) Monocytes % (Manual) Seg Neutrophils # Seg Neutrophils # Man Lymphocytes # (Manual) Monocytes # (Manual) PT APTT D-Dimer Heparin Anti-Xa Level ABG pH POC ABG pCO2 POC ABG pO2 ABG pO2 ABG Hemoglobin ABG Oxyhemoglobin ABG Sodium ABG Potassium ABG Chloride ABG Glucose Carboxyhemoglobin Sodium Potassium Chloride Carbon Dioxide BUN Creatinine Glucose 226 H POC Glucose 156 H Lactic Acid 2.30 H* Calcium 7.2 L Ferritin AST 111 H ALT 97 H Alkaline Phosphatase Lactate Dehydrogenase Troponin T C-Reactive Protein Total Protein 5.4 L Albumin 3.3 L HDL Cholesterol Arterial Blood Glucose Arterial Blood Ionized Calcium Urine WBC (Auto) 05/27/21 05/27/21 05/27/21 02:11 02:11 02:11 WBC 14.3 H RBC 3.27 L Hgb Hct MCV 99 H MCH 33 H MCHC RDW 15.3 H [place] # (Auto) 1.0 H Seg Neutrophils % Seg Neuts % (Manual) Lymphocytes % (Manual) Monocytes % (Manual) Seg Neutrophils # 10.0 H Seg Neutrophils # Man Lymphocytes # (Manual) Monocytes # (Manual) PT APTT D-Dimer Heparin Anti-Xa Level 0.80 H ABG pH POC ABG pCO2 POC ABG pO2 ABG pO2 ABG Hemoglobin ABG Oxyhemoglobin ABG Sodium ABG Potassium ABG Chloride ABG Glucose Carboxyhemoglobin Sodium Potassium 2.9 L* D Chloride Carbon Dioxide 31 H BUN 6 L Creatinine Glucose 215 H POC Glucose Lactic Acid Calcium 8.1 L Ferritin AST ALT Alkaline Phosphatase Lactate Dehydrogenase Troponin T C-Reactive Protein Total Protein Albumin HDL Cholesterol Arterial Blood Glucose Arterial Blood Ionized Calcium Urine WBC (Auto) 05/27/21 05/27/21 05/27/21 11:24 12:49 18:06 WBC RBC Hgb Hct MCV MCH MCHC RDW [place] # (Auto) Seg Neutrophils % Seg Neuts % (Manual) Lymphocytes % (Manual) Monocytes % (Manual) Seg Neutrophils # Seg Neutrophils # Man Lymphocytes # (Manual) Monocytes # (Manual) PT APTT D-Dimer Heparin Anti-Xa Level ABG pH POC ABG pCO2 POC ABG pO2 ABG pO2 ABG Hemoglobin ABG Oxyhemoglobin ABG Sodium ABG Potassium ABG Chloride ABG Glucose Carboxyhemoglobin Sodium Potassium Chloride Carbon Dioxide BUN Creatinine Glucose POC Glucose 151 H 165 H 137 H Lactic Acid Calcium Ferritin AST ALT Alkaline Phosphatase Lactate Dehydrogenase Troponin T C-Reactive Protein Total Protein Albumin HDL Cholesterol Arterial Blood Glucose Arterial Blood Ionized Calcium Urine WBC (Auto) 05/28/21 05/28/21 05/28/21 04:00 04:00 06:02 WBC 13.5 H RBC 3.05 L Hgb Hct MCV 100 H MCH 34 H MCHC RDW [place] # (Auto) 0.9 H Seg Neutrophils % 78.2 H Seg Neuts % (Manual) Lymphocytes % (Manual) Monocytes % (Manual) Seg Neutrophils # 10.6 H Seg Neutrophils # Man Lymphocytes # (Manual) Monocytes # (Manual) PT APTT D-Dimer Heparin Anti-Xa Level ABG pH 7.507 H POC ABG pCO2 POC ABG pO2 ABG pO2 ABG Hemoglobin 10.6 L ABG Oxyhemoglobin ABG Sodium 129.4 L ABG Potassium ABG Chloride ABG Glucose 243 H Carboxyhemoglobin 0.2 L Sodium 136 L D Potassium Chloride Carbon Dioxide BUN Creatinine Glucose 215 H POC Glucose Lactic Acid Calcium Ferritin AST ALT Alkaline Phosphatase Lactate Dehydrogenase Troponin T C-Reactive Protein Total Protein Albumin HDL Cholesterol Arterial Blood Glucose 243 H Arterial Blood Ionized Calcium 4.1 L Urine WBC (Auto) 05/28/21 05/28/21 05/29/21 11:27 23:02 04:30 WBC RBC Hgb 9.3 L Hct 26.7 L MCV MCH MCHC RDW [place] # (Auto) Seg Neutrophils % Seg Neuts % (Manual) Lymphocytes % (Manual) Monocytes % (Manual) Seg Neutrophils # Seg Neutrophils # Man Lymphocytes # (Manual) Monocytes # (Manual) PT APTT D-Dimer Heparin Anti-Xa Level ABG pH POC ABG pCO2 POC ABG pO2 ABG pO2 ABG Hemoglobin ABG Oxyhemoglobin ABG Sodium ABG Potassium ABG Chloride ABG Glucose Carboxyhemoglobin Sodium Potassium Chloride Carbon Dioxide BUN Creatinine Glucose POC Glucose 220 H 212 H Lactic Acid Calcium Ferritin AST ALT Alkaline Phosphatase Lactate Dehydrogenase Troponin T C-Reactive Protein Total Protein Albumin HDL Cholesterol Arterial Blood Glucose Arterial Blood Ionized Calcium Urine WBC (Auto) 05/29/21 05/29/21 05/29/21 05:02 05:28 12:55 WBC RBC Hgb Hct MCV MCH MCHC RDW [place] # (Auto) Seg Neutrophils % Seg Neuts % (Manual) Lymphocytes % (Manual) Monocytes % (Manual) Seg Neutrophils # Seg Neutrophils # Man Lymphocytes # (Manual) Monocytes # (Manual) PT APTT D-Dimer Heparin Anti-Xa Level ABG pH 7.516 H POC ABG pCO2 POC ABG pO2 ABG pO2 96.2 H ABG Hemoglobin 7.5 L ABG Oxyhemoglobin ABG Sodium ABG Potassium ABG Chloride ABG Glucose Carboxyhemoglobin Sodium Potassium Chloride Carbon Dioxide BUN Creatinine Glucose POC Glucose 197 H 251 H Lactic Acid Calcium Ferritin AST ALT Alkaline Phosphatase Lactate Dehydrogenase Troponin T C-Reactive Protein Total Protein Albumin HDL Cholesterol Arterial Blood Glucose Arterial Blood Ionized Calcium Urine WBC (Auto) 05/29/21 05/29/21 05/30/21 18:23 23:31 04:10 WBC RBC Hgb Hct MCV MCH MCHC RDW [place] # (Auto) Seg Neutrophils % Seg Neuts % (Manual) Lymphocytes % (Manual) Monocytes % (Manual) Seg Neutrophils # Seg Neutrophils # Man Lymphocytes # (Manual) Monocytes # (Manual) PT APTT D-Dimer Heparin Anti-Xa Level ABG pH 7.532 H POC ABG pCO2 30.0 L POC ABG pO2 78.5 L ABG pO2 ABG Hemoglobin 11.3 L ABG Oxyhemoglobin ABG Sodium 126.7 L ABG Potassium ABG Chloride 94.0 L ABG Glucose 270 H Carboxyhemoglobin 0.4 L Sodium Potassium Chloride Carbon Dioxide BUN Creatinine Glucose POC Glucose 236 H 252 H Lactic Acid Calcium Ferritin AST ALT Alkaline Phosphatase Lactate Dehydrogenase Troponin T C-Reactive Protein Total Protein Albumin HDL Cholesterol Arterial Blood Glucose 270 H Arterial Blood Ionized Calcium 4.4 L Urine WBC (Auto) 05/30/21 05/30/21 05/30/21 05:06 06:23 11:15 WBC RBC Hgb Hct MCV MCH MCHC RDW [place] # (Auto) Seg Neutrophils % Seg Neuts % (Manual) Lymphocytes % (Manual) Monocytes % (Manual) Seg Neutrophils # Seg Neutrophils # Man Lymphocytes # (Manual) Monocytes # (Manual) PT APTT D-Dimer Heparin Anti-Xa Level ABG pH POC ABG pCO2 POC ABG pO2 ABG pO2 ABG Hemoglobin ABG Oxyhemoglobin ABG Sodium ABG Potassium ABG Chloride ABG Glucose Carboxyhemoglobin Sodium 126 L D Potassium Chloride 91.9 L Carbon Dioxide 20 L D BUN Creatinine 0.4 L Glucose 274 H POC Glucose 242 H 346 H Lactic Acid Calcium Ferritin AST ALT Alkaline Phosphatase Lactate Dehydrogenase Troponin T C-Reactive Protein Total Protein Albumin HDL Cholesterol Arterial Blood Glucose Arterial Blood Ionized Calcium Urine WBC (Auto) 05/30/21 05/30/21 05/30/21 11:19 11:19 11:19 WBC 18.9 H RBC 3.36 L Hgb Hct MCV 102 H MCH 33 H MCHC RDW 15.5 H [place] # (Auto) Seg Neutrophils % Seg Neuts % (Manual) Lymphocytes % (Manual) Monocytes % (Manual) Seg Neutrophils # Seg Neutrophils # Man Lymphocytes # (Manual) Monocytes # (Manual) PT APTT D-Dimer Heparin Anti-Xa Level < 0.10 L ABG pH POC ABG pCO2 POC ABG pO2 ABG pO2 ABG Hemoglobin ABG Oxyhemoglobin ABG Sodium ABG Potassium ABG Chloride ABG Glucose Carboxyhemoglobin Sodium 124 L Potassium Chloride Carbon Dioxide BUN Creatinine Glucose POC Glucose Lactic Acid Calcium Ferritin AST ALT Alkaline Phosphatase Lactate Dehydrogenase Troponin T C-Reactive Protein Total Protein Albumin HDL Cholesterol Arterial Blood Glucose Arterial Blood Ionized Calcium Urine WBC (Auto) 05/30/21 05/30/21 05/31/21 17:02 23:27 03:37 WBC RBC Hgb Hct MCV MCH MCHC RDW [place] # (Auto) Seg Neutrophils % Seg Neuts % (Manual) Lymphocytes % (Manual) Monocytes % (Manual) Seg Neutrophils # Seg Neutrophils # Man Lymphocytes # (Manual) Monocytes # (Manual) PT APTT D-Dimer Heparin Anti-Xa Level ABG pH POC ABG pCO2 POC ABG pO2 ABG pO2 ABG Hemoglobin 11.6 L ABG Oxyhemoglobin ABG Sodium 130.0 L ABG Potassium ABG Chloride 95.0 L ABG Glucose 292 H Carboxyhemoglobin Sodium Potassium Chloride Carbon Dioxide BUN Creatinine Glucose POC Glucose 270 H 237 H Lactic Acid Calcium Ferritin AST ALT Alkaline Phosphatase Lactate Dehydrogenase Troponin T C-Reactive Protein Total Protein Albumin HDL Cholesterol Arterial Blood Glucose 292 H Arterial Blood Ionized Calcium Urine WBC (Auto) 05/31/21 05/31/21 05/31/21 04:00 04:00 05:20 WBC 20.9 H RBC 3.13 L Hgb Hct MCV 99 H MCH 34 H MCHC RDW [place] # (Auto) Seg Neutrophils % Seg Neuts % (Manual) 81.0 H Lymphocytes % (Manual) 8.0 L Monocytes % (Manual) 9.0 H Seg Neutrophils # Seg Neutrophils # Man 16.9 H Lymphocytes # (Manual) Monocytes # (Manual) 1.9 H PT APTT D-Dimer Heparin Anti-Xa Level ABG pH POC ABG pCO2 POC ABG pO2 ABG pO2 ABG Hemoglobin ABG Oxyhemoglobin ABG Sodium ABG Potassium ABG Chloride ABG Glucose Carboxyhemoglobin Sodium 133 L D Potassium Chloride 95.4 L Carbon Dioxide 21 L BUN 30 H Creatinine 0.5 L Glucose 305 H POC Glucose 269 H Lactic Acid Calcium Ferritin AST ALT Alkaline Phosphatase Lactate Dehydrogenase Troponin T C-Reactive Protein Total Protein Albumin HDL Cholesterol Arterial Blood Glucose Arterial Blood Ionized Calcium Urine WBC (Auto) 05/31/21 05/31/21 05/31/21 11:40 18:16 23:25 WBC RBC Hgb Hct MCV MCH MCHC RDW [place] # (Auto) Seg Neutrophils % Seg Neuts % (Manual) Lymphocytes % (Manual) Monocytes % (Manual) Seg Neutrophils # Seg Neutrophils # Man Lymphocytes # (Manual) Monocytes # (Manual) PT APTT D-Dimer Heparin Anti-Xa Level ABG pH POC ABG pCO2 POC ABG pO2 ABG pO2 ABG Hemoglobin ABG Oxyhemoglobin ABG Sodium ABG Potassium ABG Chloride ABG Glucose Carboxyhemoglobin Sodium Potassium Chloride Carbon Dioxide BUN Creatinine Glucose POC Glucose 364 H 250 H 231 H Lactic Acid Calcium Ferritin AST ALT Alkaline Phosphatase Lactate Dehydrogenase Troponin T C-Reactive Protein Total Protein Albumin HDL Cholesterol Arterial Blood Glucose Arterial Blood Ionized Calcium Urine WBC (Auto) 06/01/21 06/01/21 06/01/21 04:03 04:58 04:58 WBC 20.7 H RBC 3.20 L Hgb Hct MCV 99 H MCH 34 H MCHC RDW [place] # (Auto) Seg Neutrophils % Seg Neuts % (Manual) 82.0 H Lymphocytes % (Manual) 9.0 L Monocytes % (Manual) Seg Neutrophils # Seg Neutrophils # Man 17.0 H Lymphocytes # (Manual) Monocytes # (Manual) 1.4 H PT APTT D-Dimer Heparin Anti-Xa Level 1.18 H ABG pH 7.520 H POC ABG pCO2 POC ABG pO2 66.0 L ABG pO2 ABG Hemoglobin ABG Oxyhemoglobin 92.5 L ABG Sodium 133.6 L ABG Potassium ABG Chloride ABG Glucose 250 H Carboxyhemoglobin Sodium Potassium Chloride Carbon Dioxide BUN Creatinine Glucose POC Glucose Lactic Acid Calcium Ferritin AST ALT Alkaline Phosphatase Lactate Dehydrogenase Troponin T C-Reactive Protein Total Protein Albumin HDL Cholesterol Arterial Blood Glucose 250 H Arterial Blood Ionized Calcium 4.4 L Urine WBC (Auto) 06/01/21 06/01/21 06/01/21 04:58 05:29 11:39 WBC RBC Hgb Hct MCV MCH MCHC RDW [place] # (Auto) Seg Neutrophils % Seg Neuts % (Manual) Lymphocytes % (Manual) Monocytes % (Manual) Seg Neutrophils # Seg Neutrophils # Man Lymphocytes # (Manual) Monocytes # (Manual) PT APTT D-Dimer Heparin Anti-Xa Level ABG pH POC ABG pCO2 POC ABG pO2 ABG pO2 ABG Hemoglobin ABG Oxyhemoglobin ABG Sodium ABG Potassium ABG Chloride ABG Glucose Carboxyhemoglobin Sodium 131 L Potassium Chloride 95.7 L Carbon Dioxide BUN 30 H Creatinine 0.5 L Glucose 241 H POC Glucose 215 H 299 H Lactic Acid Calcium Ferritin AST ALT Alkaline Phosphatase Lactate Dehydrogenase Troponin T C-Reactive Protein Total Protein Albumin HDL Cholesterol Arterial Blood Glucose Arterial Blood Ionized Calcium Urine WBC (Auto) 06/01/21 06/02/21 06/02/21 18:14 00:12 02:25 WBC 17.4 H RBC 3.09 L Hgb Hct MCV 101 H MCH 34 H MCHC RDW 15.5 H [place] # (Auto) Seg Neutrophils % Seg Neuts % (Manual) Lymphocytes % (Manual) Monocytes % (Manual) Seg Neutrophils # Seg Neutrophils # Man Lymphocytes # (Manual) Monocytes # (Manual) PT APTT D-Dimer Heparin Anti-Xa Level ABG pH POC ABG pCO2 POC ABG pO2 ABG pO2 ABG Hemoglobin ABG Oxyhemoglobin ABG Sodium ABG Potassium ABG Chloride ABG Glucose Carboxyhemoglobin Sodium Potassium Chloride Carbon Dioxide BUN Creatinine Glucose POC Glucose 215 H 175 H Lactic Acid Calcium Ferritin AST ALT Alkaline Phosphatase Lactate Dehydrogenase Troponin T C-Reactive Protein Total Protein Albumin HDL Cholesterol Arterial Blood Glucose Arterial Blood Ionized Calcium Urine WBC (Auto) 06/02/21 06/02/21 06/02/21 02:25 04:13 04:58 WBC RBC Hgb Hct MCV MCH MCHC RDW [place] # (Auto) Seg Neutrophils % Seg Neuts % (Manual) Lymphocytes % (Manual) Monocytes % (Manual) Seg Neutrophils # Seg Neutrophils # Man Lymphocytes # (Manual) Monocytes # (Manual) PT APTT D-Dimer Heparin Anti-Xa Level ABG pH 7.481 H POC ABG pCO2 POC ABG pO2 80.0 L ABG pO2 ABG Hemoglobin 11.1 L ABG Oxyhemoglobin ABG Sodium 131.9 L ABG Potassium ABG Chloride ABG Glucose 231 H Carboxyhemoglobin 0.2 L Sodium 134 L Potassium Chloride 95.8 L Carbon Dioxide BUN 31 H Creatinine 0.5 L Glucose 168 H POC Glucose 230 H Lactic Acid Calcium Ferritin AST ALT Alkaline Phosphatase Lactate Dehydrogenase Troponin T C-Reactive Protein Total Protein Albumin HDL Cholesterol Arterial Blood Glucose 231 H Arterial Blood Ionized Calcium Urine WBC (Auto) 06/02/21 06/02/21 06/02/21 11:27 17:47 23:53 WBC RBC Hgb Hct MCV MCH MCHC RDW [place] # (Auto) Seg Neutrophils % Seg Neuts % (Manual) Lymphocytes % (Manual) Monocytes % (Manual) Seg Neutrophils # Seg Neutrophils # Man Lymphocytes # (Manual) Monocytes # (Manual) PT APTT D-Dimer Heparin Anti-Xa Level 0.80 H ABG pH POC ABG pCO2 POC ABG pO2 ABG pO2 ABG Hemoglobin ABG Oxyhemoglobin ABG Sodium ABG Potassium ABG Chloride ABG Glucose Carboxyhemoglobin Sodium Potassium Chloride Carbon Dioxide BUN Creatinine Glucose POC Glucose 259 H 297 H Lactic Acid Calcium Ferritin AST ALT Alkaline Phosphatase Lactate Dehydrogenase Troponin T C-Reactive Protein Total Protein Albumin HDL Cholesterol Arterial Blood Glucose Arterial Blood Ionized Calcium Urine WBC (Auto) 06/03/21 06/03/21 06/03/21 00:05 05:23 09:10 WBC RBC Hgb Hct MCV MCH MCHC RDW [place] # (Auto) Seg Neutrophils % Seg Neuts % (Manual) Lymphocytes % (Manual) Monocytes % (Manual) Seg Neutrophils # Seg Neutrophils # Man Lymphocytes # (Manual) Monocytes # (Manual) PT APTT D-Dimer Heparin Anti-Xa Level 0.84 H ABG pH POC ABG pCO2 POC ABG pO2 ABG pO2 ABG Hemoglobin ABG Oxyhemoglobin ABG Sodium ABG Potassium ABG Chloride ABG Glucose Carboxyhemoglobin Sodium Potassium Chloride Carbon Dioxide BUN Creatinine Glucose POC Glucose 268 H 170 H Lactic Acid Calcium Ferritin AST ALT Alkaline Phosphatase Lactate Dehydrogenase Troponin T C-Reactive Protein Total Protein Albumin HDL Cholesterol Arterial Blood Glucose Arterial Blood Ionized Calcium Urine WBC (Auto) 06/03/21 06/03/21 06/03/21 12:06 20:22 23:30 WBC RBC Hgb Hct MCV MCH MCHC RDW [place] # (Auto) Seg Neutrophils % Seg Neuts % (Manual) Lymphocytes % (Manual) Monocytes % (Manual) Seg Neutrophils # Seg Neutrophils # Man Lymphocytes # (Manual) Monocytes # (Manual) PT APTT D-Dimer Heparin Anti-Xa Level ABG pH POC ABG pCO2 POC ABG pO2 ABG pO2 ABG Hemoglobin ABG Oxyhemoglobin ABG Sodium ABG Potassium ABG Chloride ABG Glucose Carboxyhemoglobin Sodium Potassium Chloride Carbon Dioxide BUN Creatinine Glucose POC Glucose 275 H 260 H 215 H Lactic Acid Calcium Ferritin AST ALT Alkaline Phosphatase Lactate Dehydrogenase Troponin T C-Reactive Protein Total Protein Albumin HDL Cholesterol Arterial Blood Glucose Arterial Blood Ionized Calcium Urine WBC (Auto) 06/04/21 06/04/21 06/04/21 05:03 05:57 05:57 WBC 17.8 H RBC 2.83 L Hgb 9.6 L Hct 28.4 L MCV 100 H MCH 34 H MCHC RDW 15.5 H [place] # (Auto) Seg Neutrophils % Seg Neuts % (Manual) 83.0 H Lymphocytes % (Manual) 4.0 L Monocytes % (Manual) Seg Neutrophils # Seg Neutrophils # Man 14.8 H Lymphocytes # (Manual) 0.7 L Monocytes # (Manual) 1.1 H PT APTT D-Dimer Heparin Anti-Xa Level ABG pH POC ABG pCO2 POC ABG pO2 ABG pO2 ABG Hemoglobin ABG Oxyhemoglobin ABG Sodium ABG Potassium ABG Chloride ABG Glucose Carboxyhemoglobin Sodium 135 L Potassium Chloride 96.3 L Carbon Dioxide BUN 51 H Creatinine Glucose 275 H POC Glucose 257 H Lactic Acid Calcium Ferritin AST ALT Alkaline Phosphatase Lactate Dehydrogenase Troponin T C-Reactive Protein Total Protein Albumin HDL Cholesterol Arterial Blood Glucose Arterial Blood Ionized Calcium Urine WBC (Auto) 06/04/21 06/04/21 06/04/21 09:48 11:08 17:33 WBC RBC Hgb Hct MCV MCH MCHC RDW [place] # (Auto) Seg Neutrophils % Seg Neuts % (Manual) Lymphocytes % (Manual) Monocytes % (Manual) Seg Neutrophils # Seg Neutrophils # Man Lymphocytes # (Manual) Monocytes # (Manual) PT APTT D-Dimer Heparin Anti-Xa Level ABG pH POC ABG pCO2 POC ABG pO2 ABG pO2 ABG Hemoglobin ABG Oxyhemoglobin ABG Sodium ABG Potassium ABG Chloride ABG Glucose Carboxyhemoglobin Sodium Potassium Chloride Carbon Dioxide BUN Creatinine Glucose POC Glucose 198 H 234 H 247 H Lactic Acid Calcium Ferritin AST ALT Alkaline Phosphatase Lactate Dehydrogenase Troponin T C-Reactive Protein Total Protein Albumin HDL Cholesterol Arterial Blood Glucose Arterial Blood Ionized Calcium Urine WBC (Auto) 06/04/21 06/05/21 06/05/21 23:30 05:38 11:24 WBC RBC Hgb Hct MCV MCH MCHC RDW [place] # (Auto) Seg Neutrophils % Seg Neuts % (Manual) Lymphocytes % (Manual) Monocytes % (Manual) Seg Neutrophils # Seg Neutrophils # Man Lymphocytes # (Manual) Monocytes # (Manual) PT APTT D-Dimer Heparin Anti-Xa Level ABG pH POC ABG pCO2 POC ABG pO2 ABG pO2 ABG Hemoglobin ABG Oxyhemoglobin ABG Sodium ABG Potassium ABG Chloride ABG Glucose Carboxyhemoglobin Sodium Potassium Chloride Carbon Dioxide BUN Creatinine Glucose POC Glucose 192 H 192 H 287 H Lactic Acid Calcium Ferritin AST ALT Alkaline Phosphatase Lactate Dehydrogenase Troponin T C-Reactive Protein Total Protein Albumin HDL Cholesterol Arterial Blood Glucose Arterial Blood Ionized Calcium Urine WBC (Auto) 06/05/21 06/05/21 06/05/21 12:20 12:20 12:20 WBC 16.2 H RBC 2.56 L Hgb 8.8 L Hct 25.2 L MCV 98 H MCH 35 H MCHC 35 H RDW 15.3 H [place] # (Auto) Seg Neutrophils % Seg Neuts % (Manual) Lymphocytes % (Manual) Monocytes % (Manual) Seg Neutrophils # Seg Neutrophils # Man Lymphocytes # (Manual) Monocytes # (Manual) PT APTT 72.2 H* D-Dimer Heparin Anti-Xa Level ABG pH POC ABG pCO2 POC ABG pO2 ABG pO2 ABG Hemoglobin ABG Oxyhemoglobin ABG Sodium ABG Potassium ABG Chloride ABG Glucose Carboxyhemoglobin Sodium 133 L Potassium Chloride 95.3 L Carbon Dioxide BUN 57 H Creatinine Glucose 313 H POC Glucose Lactic Acid Calcium Ferritin AST 90 H ALT 79 H Alkaline Phosphatase 262 H Lactate Dehydrogenase Troponin T C-Reactive Protein Total Protein Albumin 2.7 L HDL Cholesterol Arterial Blood Glucose Arterial Blood Ionized Calcium Urine WBC (Auto) 06/05/21 06/05/21 06/05/21 17:50 22:57 23:36 WBC RBC Hgb Hct MCV MCH MCHC RDW [place] # (Auto) Seg Neutrophils % Seg Neuts % (Manual) Lymphocytes % (Manual) Monocytes % (Manual) Seg Neutrophils # Seg Neutrophils # Man Lymphocytes # (Manual) Monocytes # (Manual) PT APTT D-Dimer Heparin Anti-Xa Level 0.28 L ABG pH POC ABG pCO2 POC ABG pO2 ABG pO2 ABG Hemoglobin ABG Oxyhemoglobin ABG Sodium ABG Potassium ABG Chloride ABG Glucose Carboxyhemoglobin Sodium Potassium Chloride Carbon Dioxide BUN Creatinine Glucose POC Glucose 275 H 223 H Lactic Acid Calcium Ferritin AST ALT Alkaline Phosphatase Lactate Dehydrogenase Troponin T C-Reactive Protein Total Protein Albumin HDL Cholesterol Arterial Blood Glucose Arterial Blood Ionized Calcium Urine WBC (Auto) 06/06/21 06/06/21 06/06/21 04:57 04:57 05:02 WBC 15.7 H RBC 2.77 L Hgb 9.4 L Hct 27.2 L MCV 98 H MCH 34 H MCHC RDW 15.4 H [place] # (Auto) Seg Neutrophils % Seg Neuts % (Manual) Lymphocytes % (Manual) Monocytes % (Manual) Seg Neutrophils # Seg Neutrophils # Man Lymphocytes # (Manual) Monocytes # (Manual) PT APTT D-Dimer Heparin Anti-Xa Level ABG pH POC ABG pCO2 POC ABG pO2 ABG pO2 ABG Hemoglobin ABG Oxyhemoglobin ABG Sodium ABG Potassium ABG Chloride ABG Glucose Carboxyhemoglobin Sodium Potassium 5.7 H Chloride Carbon Dioxide BUN 57 H Creatinine Glucose 245 H POC Glucose 217 H Lactic Acid Calcium Ferritin AST 99 H ALT 136 H Alkaline Phosphatase 312 H Lactate Dehydrogenase Troponin T C-Reactive Protein Total Protein 6.1 L Albumin 3.1 L HDL Cholesterol Arterial Blood Glucose Arterial Blood Ionized Calcium Urine WBC (Auto) 06/06/21 06/06/21 06/06/21 11:37 17:34 18:09 WBC RBC Hgb Hct MCV MCH MCHC RDW [place] # (Auto) Seg Neutrophils % Seg Neuts % (Manual) Lymphocytes % (Manual) Monocytes % (Manual) Seg Neutrophils # Seg Neutrophils # Man Lymphocytes # (Manual) Monocytes # (Manual) PT APTT D-Dimer Heparin Anti-Xa Level ABG pH POC ABG pCO2 POC ABG pO2 ABG pO2 ABG Hemoglobin ABG Oxyhemoglobin ABG Sodium ABG Potassium ABG Chloride ABG Glucose Carboxyhemoglobin Sodium Potassium 5.2 H Chloride Carbon Dioxide BUN 48 H Creatinine Glucose 245 H POC Glucose 251 H 217 H Lactic Acid Calcium Ferritin AST ALT Alkaline Phosphatase Lactate Dehydrogenase Troponin T C-Reactive Protein Total Protein Albumin HDL Cholesterol Arterial Blood Glucose Arterial Blood Ionized Calcium Urine WBC (Auto) 06/06/21 06/07/21 06/07/21 23:53 04:45 04:45 WBC 21.5 H RBC 2.71 L Hgb 9.0 L Hct 26.9 L MCV 99 H MCH 33 H MCHC RDW 15.3 H [place] # (Auto) Seg Neutrophils % Seg Neuts % (Manual) Lymphocytes % (Manual) Monocytes % (Manual) Seg Neutrophils # Seg Neutrophils # Man Lymphocytes # (Manual) Monocytes # (Manual) PT APTT D-Dimer Heparin Anti-Xa Level 0.10 L ABG pH POC ABG pCO2 POC ABG pO2 ABG pO2 ABG Hemoglobin ABG Oxyhemoglobin ABG Sodium ABG Potassium ABG Chloride ABG Glucose Carboxyhemoglobin Sodium Potassium Chloride Carbon Dioxide BUN Creatinine Glucose POC Glucose 224 H Lactic Acid Calcium Ferritin AST ALT Alkaline Phosphatase Lactate Dehydrogenase Troponin T C-Reactive Protein Total Protein Albumin HDL Cholesterol Arterial Blood Glucose Arterial Blood Ionized Calcium Urine WBC (Auto) 06/07/21 06/07/21 06/07/21 04:45 05:11 11:50 WBC RBC Hgb Hct MCV MCH MCHC RDW [place] # (Auto) Seg Neutrophils % Seg Neuts % (Manual) Lymphocytes % (Manual) Monocytes % (Manual) Seg Neutrophils # Seg Neutrophils # Man Lymphocytes # (Manual) Monocytes # (Manual) PT APTT D-Dimer Heparin Anti-Xa Level ABG pH POC ABG pCO2 POC ABG pO2 ABG pO2 ABG Hemoglobin ABG Oxyhemoglobin ABG Sodium ABG Potassium ABG Chloride ABG Glucose Carboxyhemoglobin Sodium Potassium 5.4 H Chloride Carbon Dioxide BUN 55 H Creatinine Glucose 178 H POC Glucose 156 H 118 H Lactic Acid Calcium Ferritin AST ALT Alkaline Phosphatase Lactate Dehydrogenase Troponin T C-Reactive Protein Total Protein Albumin HDL Cholesterol Arterial Blood Glucose Arterial Blood Ionized Calcium Urine WBC (Auto) 06/07/21 06/07/21 06/07/21 14:52 17:45 20:43 WBC RBC Hgb Hct MCV MCH MCHC RDW [place] # (Auto) Seg Neutrophils % Seg Neuts % (Manual) Lymphocytes % (Manual) Monocytes % (Manual) Seg Neutrophils # Seg Neutrophils # Man Lymphocytes # (Manual) Monocytes # (Manual) PT APTT D-Dimer Heparin Anti-Xa Level 0.73 H ABG pH POC ABG pCO2 POC ABG pO2 ABG pO2 ABG Hemoglobin ABG Oxyhemoglobin ABG Sodium ABG Potassium ABG Chloride ABG Glucose Carboxyhemoglobin Sodium Potassium Chloride Carbon Dioxide BUN Creatinine Glucose POC Glucose 164 H Lactic Acid Calcium Ferritin AST ALT Alkaline Phosphatase Lactate Dehydrogenase Troponin T C-Reactive Protein 28.90 H Total Protein Albumin HDL Cholesterol Arterial Blood Glucose Arterial Blood Ionized Calcium Urine WBC (Auto) 06/07/21 06/08/21 06/08/21 23:15 04:25 04:25 WBC 15.8 H RBC 2.58 L Hgb 8.6 L Hct 25.7 L MCV 100 H MCH 33 H MCHC RDW [place] # (Auto) Seg Neutrophils % Seg Neuts % (Manual) 76.0 H Lymphocytes % (Manual) 6.0 L Monocytes % (Manual) 8.0 H Seg Neutrophils # Seg Neutrophils # Man 12.0 H Lymphocytes # (Manual) 0.9 L Monocytes # (Manual) 1.3 H PT APTT D-Dimer Heparin Anti-Xa Level ABG pH POC ABG pCO2 POC ABG pO2 ABG pO2 ABG Hemoglobin ABG Oxyhemoglobin ABG Sodium ABG Potassium ABG Chloride ABG Glucose Carboxyhemoglobin Sodium Potassium Chloride Carbon Dioxide BUN 65 H Creatinine Glucose 205 H POC Glucose 236 H Lactic Acid Calcium Ferritin AST ALT Alkaline Phosphatase Lactate Dehydrogenase Troponin T C-Reactive Protein Total Protein Albumin HDL Cholesterol Arterial Blood Glucose Arterial Blood Ionized Calcium Urine WBC (Auto) 06/08/21 06/08/21 06/08/21 05:36 11:18 17:41 WBC RBC Hgb Hct MCV MCH MCHC RDW [place] # (Auto) Seg Neutrophils % Seg Neuts % (Manual) Lymphocytes % (Manual) Monocytes % (Manual) Seg Neutrophils # Seg Neutrophils # Man Lymphocytes # (Manual) Monocytes # (Manual) PT APTT D-Dimer Heparin Anti-Xa Level ABG pH POC ABG pCO2 POC ABG pO2 ABG pO2 ABG Hemoglobin ABG Oxyhemoglobin ABG Sodium ABG Potassium ABG Chloride ABG Glucose Carboxyhemoglobin Sodium Potassium Chloride Carbon Dioxide BUN Creatinine Glucose POC Glucose 185 H 203 H 173 H Lactic Acid Calcium Ferritin AST ALT Alkaline Phosphatase Lactate Dehydrogenase Troponin T C-Reactive Protein Total Protein Albumin HDL Cholesterol Arterial Blood Glucose Arterial Blood Ionized Calcium Urine WBC (Auto) 06/08/21 06/09/21 06/09/21 23:34 05:16 05:20 WBC 15.0 H RBC 2.54 L Hgb 8.5 L Hct 25.2 L MCV 99 H MCH 33 H MCHC RDW [place] # (Auto) Seg Neutrophils % Seg Neuts % (Manual) Lymphocytes % (Manual) Monocytes % (Manual) Seg Neutrophils # Seg Neutrophils # Man Lymphocytes # (Manual) Monocytes # (Manual) PT APTT D-Dimer Heparin Anti-Xa Level ABG pH POC ABG pCO2 POC ABG pO2 ABG pO2 ABG Hemoglobin ABG Oxyhemoglobin ABG Sodium ABG Potassium ABG Chloride ABG Glucose Carboxyhemoglobin Sodium Potassium Chloride Carbon Dioxide BUN Creatinine Glucose POC Glucose 200 H 154 H Lactic Acid Calcium Ferritin AST ALT Alkaline Phosphatase Lactate Dehydrogenase Troponin T C-Reactive Protein Total Protein Albumin HDL Cholesterol Arterial Blood Glucose Arterial Blood Ionized Calcium Urine WBC (Auto) 06/09/21 06/09/21 06/09/21 05:20 11:40 17:09 WBC RBC Hgb Hct MCV MCH MCHC RDW [place] # (Auto) Seg Neutrophils % Seg Neuts % (Manual) Lymphocytes % (Manual) Monocytes % (Manual) Seg Neutrophils # Seg Neutrophils # Man Lymphocytes # (Manual) Monocytes # (Manual) PT APTT D-Dimer Heparin Anti-Xa Level ABG pH POC ABG pCO2 POC ABG pO2 ABG pO2 ABG Hemoglobin ABG Oxyhemoglobin ABG Sodium ABG Potassium ABG Chloride ABG Glucose Carboxyhemoglobin Sodium Potassium 5.2 H Chloride Carbon Dioxide BUN 69 H Creatinine Glucose 163 H POC Glucose 232 H 137 H Lactic Acid Calcium Ferritin AST ALT Alkaline Phosphatase Lactate Dehydrogenase Troponin T C-Reactive Protein Total Protein Albumin HDL Cholesterol Arterial Blood Glucose Arterial Blood Ionized Calcium Urine WBC (Auto) 06/09/21 06/10/21 06/10/21 23:31 04:42 04:42 WBC 14.5 H RBC 2.41 L Hgb 8.2 L Hct 24.0 L MCV 100 H MCH 34 H MCHC RDW 15.8 H [place] # (Auto) Seg Neutrophils % Seg Neuts % (Manual) Lymphocytes % (Manual) Monocytes % (Manual) Seg Neutrophils # Seg Neutrophils # Man Lymphocytes # (Manual) Monocytes # (Manual) PT APTT D-Dimer Heparin Anti-Xa Level ABG pH POC ABG pCO2 POC ABG pO2 ABG pO2 ABG Hemoglobin ABG Oxyhemoglobin ABG Sodium ABG Potassium ABG Chloride ABG Glucose Carboxyhemoglobin Sodium 146 H D Potassium 3.4 L D Chloride Carbon Dioxide BUN 62 H Creatinine Glucose 174 H POC Glucose 162 H Lactic Acid Calcium Ferritin AST ALT Alkaline Phosphatase Lactate Dehydrogenase Troponin T C-Reactive Protein Total Protein Albumin HDL Cholesterol Arterial Blood Glucose Arterial Blood Ionized Calcium Urine WBC (Auto) 06/10/21 06/10/21 05:36 11:43 WBC RBC Hgb Hct MCV MCH MCHC RDW [place] # (Auto) Seg Neutrophils % Seg Neuts % (Manual) Lymphocytes % (Manual) Monocytes % (Manual) Seg Neutrophils # Seg Neutrophils # Man Lymphocytes # (Manual) Monocytes # (Manual) PT APTT D-Dimer Heparin Anti-Xa Level ABG pH POC ABG pCO2 POC ABG pO2 ABG pO2 ABG Hemoglobin ABG Oxyhemoglobin ABG Sodium ABG Potassium ABG Chloride ABG Glucose Carboxyhemoglobin Sodium Potassium Chloride Carbon Dioxide BUN Creatinine Glucose POC Glucose 149 H 183 H Lactic Acid Calcium Ferritin AST ALT Alkaline Phosphatase Lactate Dehydrogenase Troponin T C-Reactive Protein Total Protein Albumin HDL Cholesterol Arterial Blood Glucose Arterial Blood Ionized Calcium Urine WBC (Auto) Allied health notes reviewed: nursing
[2021-06-10] MEDS: HEPARIN/ 0.45% NACL DRIP 25,000 UNIT/500 ML BAG IV SCH (17:21)
[2021-06-10] MEDS ORDERED: VALSARTAN 40 MG TAB PO SCH (22:30)
[2021-06-11] MEDS: hydrALAZINE 25 MG TAB PO SCH ×3 (05:32→21:20)
[2021-06-11] MEDS: METOCLOPRAMIDE 10 MG/2 ML INJ IV SCH ×4 (05:33→22:00)
[2021-06-11] MEDS: INSULIN LISPRO 100 UNIT/ML SUB-Q SCH ×4 (05:34→18:04)
[2021-06-11] MEDS: GLYCOPYRROLATE 2 MG TAB PO SCH ×3 (08:40→21:18)
--- NOTE | 2021-06-11 08:50 | Progress Note ---
Assessment and Plan Assessment and plan: 65-year-old female with PmHx of nonepileptic spells, PTSD, closed head injury, hypertension, diabetes, CAD, who came in s/p cardiac arrest Hospital Course to Date: 06/05/21- Patient remains ETT and on vent support. Off sedation with some improvement in neuro status, but is not following commands. Patient is tolerating SBT trial this am, still on the heparin gtt. AM labs is pending. Patient is still hyperglycemic, increased Qhs lantus. Continue supportive care. 06/06/21- Patient is intubated and on the vent. No longer on sedation, awake but unresponsive, tolerating SBT. Hyperglycemia this am, X1 dose of kayaxalate orderd. Persistent hyperglycemia, insulin adjusted. Continue to monitor electrolytes, repeat BMP this afternoon and am labs ordered. 06/07/21- Patient remains intubated and on the vent. Neuro status is unchanged, spontaneously open yes but is not following commands. SBT trial again, plan to place back on a rate overnight. Leukocytosis noted from this morning lab, stat procalc and CRP ordered, d/w CCM no abx at this time. K 5.4 today, kayalalxate given. Continue to monitor leukocytosis and electrolytes. Am labs ordered 06/08/21- Patient remains intubated and on the vent with no significant change in her neuro status. Patient with no BM in 7days, abdominal soft with positive bowel sounds, colace added and PRN ducolax Supp PRN. Continue to monitor leukocytosis and electrolytes, am labs ordered. Plan for trach and PEG, surgery consulted. 06/09/21- Patient remains stable, intubated with no significant change in neuro status. Trach and Peg cancelled for today. Plan for possibly next week. Hyperkalemia again today, chart review for possible meds interaction. X1 dose of kayexalate ordered. Still no BM today. Episode of emesis today, TF held and NGT to LIS until tommorrow. Orders place for KUB today and Chest XR for the morning. Morning labs ordered. 06/10: Continue supportive care. Trach and PEG planned for early next week. KUB and x-ray with no significant change. Opacity still persist. Critical care management noted. Patient still persistent leukocytosis we will continue to monitor mild hypokalemia noted will replace with potassium. Also noted mild hypernatremia. Agree with holding tube feeds at this time 06/11: Discussed with nursing staff to change to history trickle feeds. Patient is planned for trach and PEG Saturday or Saturday. Continue current management als o discussed to hold heparin drip for planned procedure with noted timeframe. We will recheck labs to ensure correction of electrolytes. 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 - Per Neuro 05/29 EEG no sign of seizures - Patient is off sedation, open eyes spontaneously, pupils reactive, with +gag and cough. - Not following commands, no movement to stimuli - Continue Keppra and PRN ativan for seizure - Continue Supportive care #CV: s/p Cardiac Arrest #AFIB with RVR- resolved #Hypertension - Remains SR on the monitor - Normotensive - Continue antihypertensives: Labetalol, Hydralazine, valsartan, & Doxazosin - PRN hydralazine for SBP> 160 - Continue AC- Heparin gtt per protocol - Cardio is following #Resp.: Acute Hypoxemic Respitaroy Failure s/p cardiac Arrest #Bilateral Lower Lobe Infiltrates- improved - 05/25 ETT- Vent setting: PRVC- 30%,8,12,400 - 05/29 CXR- improved lung aeration - Patient is tolerating breathing trial, continue daily SBT - ABG per [facility] - F/U CXR in the am - Continue supplemental O2 for SPO2 goal>90% - D/w [facility] rec Trach and PEG-Family at bedside [facility] discussed plan with family - [facility] spoke with Patient's son- Plan for Trach and PEG possibly next week - Surgery consulted - Case management for LTACH placement #GI: Abdominal distention possibly due to Constipation #Vomitting- resolved - last documented BM 06/01 - 06/03 KUB showed no sign. abnormality - Bowel Regimen- senokot, Miralax - Added Colace, and PRN Ducolax supp - TF at goal - Continue PPI- pecid #: Hyperkalemia- - 06/06 K 5.7; X1 dose of kayexalate via NGT - 06/08 K 4.5 today - 06/09 K 5.2- X1 dose of kayexalate - Purewick in placed - Continue strict I&Os - Continue to monitor renal function and electrolytes, am labs ordered #ID: Leukocytosis #Sepsis- resolved #Bilateral Lower Lobe Infiltrates- improved - 05/25 Bcultx2-neg; 05/25 Tracheal aspirate-neg; 05/25 Urine cult- neg - 05/29 CXR- improved lung aeration - WBCs trending down; 06/06 Wbcs 15.7 06/07 Wbcs 21.5 - Leukocytosis down trending 15 today - 06/07 CRP 28.90 and procal 0.36 - Afebrile TMAX 99.6, not on pressors - d/w CCM no abx at this time. - Continue to monitor- AM labs ordered #Endo: Hyperglycemia; H/o DM - Remains hyperglycemic - On high dose SSI Q6hrs - increased Lantus to 25units- Will reassess in the am #DVT prophylaxis - SCDs to bilateral lower extremities while in bed - Continue AC- heparin gtt The high probability of a clinically significant, sudden or life threatening deterioration of the [neuro, Pulmo, GI, Endo] system(s) required my full and direct attention, intervention and personal management. The aggregate critical care time was [35] minutes. This time is in addition to time spent performing reported procedures but includes the following: [x] Data Review and interpretation [x] Patient assessment and monitoring of vital signs [x] Documentation [x] Medication orders and management Disposition Plan: ICU Total Time Spent with Patient (Minutes): 35 History Interval history: Patient seen and examined remains on full ventilatory support Unfortunately no clinical improvement. No further episode of vomiting since restarting of tube feeds Hospitalist Physical - Physical exam Narrative exam: VITAL SIGNS: Reviewed. GENERAL: The patient appears normally developed otherwise critically ill chronically on full ventilatory support via ET tube vital signs as documented. HEAD: No signs of head trauma. EYES: Pupils are equal. EARS: Hearing grossly intact. MOUTH: Tongue is protuberant, oropharynx is normal. NECK: No adenopathy, no JVD. CHEST: Chest with clear breath sounds bilaterally. No wheezes, rales, or rhonchi. CARDIAC: Regular rate and rhythm. S1 and S2, without murmurs, gallops, or rubs. VASCULAR: No Edema. Peripheral pulses normal and equal in all extremities. ABDOMEN: Soft, non tender. Mildly distended. No rebound or guarding, and no masses palpated. Bowel Sounds normal. MUSCULOSKELETAL: Good range of motion of all major joints. Extremities without clubbing, cyanosis. With trace edema. NEUROLOGIC EXAM: Markedly encephalopathic unable to examine despite no sedation PSYCHIATRIC: Unable to assess SKIN: detail exam as documented in skin assessment - Constitutional Vitals: Temp Pulse Resp BP Pulse Ox 98.3 F 93 H 21 184/76 99 06/11/21 07:01 06/11/21 08:01 06/11/21 08:01 06/11/21 08:01 06/11/21 08:20 General appearance: Present: no acute distress HEART Score - HEART Score Troponin: Troponin T 0.226 ng/mL (0.00-0.029) H* D 05/25/21 15:19 Results - Labs CBC & Chem 7: 06/10/21 04:42 06/10/21 04:42 Labs: Laboratory Last Values WBC 14.5 K/mm3 (4.5-11.0) H 06/10/21 04:42 RBC 2.41 M/mm3 (3.65-5.03) L 06/10/21 04:42 Hgb 8.2 gm/dl (10.1-14.3) L 06/10/21 04:42 Hct 24.0 % (30.3-42.9) L 06/10/21 04:42 MCV 100 fl (79-97) H 06/10/21 04:42 MCH 34 pg (28-32) H 06/10/21 04:42 MCHC 34 % (30-34) 06/10/21 04:42 RDW 15.8 % (13.2-15.2) H 06/10/21 04:42 Plt Count 279 K/mm3 (140-440) 06/10/21 04:42 Lymph % (Auto) 14.3 % (13.4-35.0) 05/28/21 04:00 [place] % (Auto) 6.9 % (0.0-7.3) 05/28/21 04:00 Eos % (Auto) 0.1 % (0.0-4.3) 05/28/21 04:00 Baso % (Auto) 0.5 % (0.0-1.8) 05/28/21 04:00 Lymph # (Auto) 1.9 K/mm3 (1.2-5.4) 05/28/21 04:00 [place] # (Auto) 0.9 K/mm3 (0.0-0.8) H 05/28/21 04:00 Eos # (Auto) 0.0 K/mm3 (0.0-0.4) 05/28/21 04:00 Baso # (Auto) 0.1 K/mm3 (0.0-0.1) 05/28/21 04:00 Add Manual Diff Complete 06/08/21 04:25 Total Counted 100 06/08/21 04:25 Seg Neutrophils % 78.2 % (40.0-70.0) H 05/28/21 04:00 Seg Neuts % (Manual) 76.0 % (40.0-70.0) H 06/08/21 04:25 Band Neutrophils % 4.0 % 06/08/21 04:25 Lymphocytes % (Manual) 6.0 % (13.4-35.0) L 06/08/21 04:25 Monocytes % (Manual) 8.0 % (0.0-7.3) H 06/08/21 04:25 Eosinophils % (Manual) 1.0 % (0.0-4.3) 06/08/21 04:25 Metamyelocytes % 3.0 % 06/08/21 04:25 Myelocytes % 2.0 % 06/08/21 04:25 Nucleated RBC % Not Reportable 06/08/21 04:25 Seg Neutrophils # 10.6 K/mm3 (1.8-7.7) H 05/28/21 04:00 Seg Neutrophils # Man 12.0 K/mm3 (1.8-7.7) H 06/08/21 04:25 Band Neutrophils # 0.6 K/mm3 06/08/21 04:25 Lymphocytes # (Manual) 0.9 K/mm3 (1.2-5.4) L 06/08/21 04:25 Abs React Lymphs (Man) 0.0 K/mm3 06/08/21 04:25 Monocytes # (Manual) 1.3 K/mm3 (0.0-0.8) H 06/08/21 04:25 Eosinophils # (Manual) 0.2 K/mm3 (0.0-0.4) 06/08/21 04:25 Basophils # (Manual) 0.0 K/mm3 (0.0-0.1) 06/08/21 04:25 Metamyelocytes # 0.5 K/mm3 06/08/21 04:25 Myelocytes # 0.3 K/mm3 06/08/21 04:25 Promyelocytes # 0.0 K/mm3 06/08/21 04:25 Blast Cells # 0.0 K/mm3 06/08/21 04:25 WBC Morphology Not Reportable 06/08/21 04:25 Hypersegmented Neuts Not Reportable 06/08/21 04:25 Hyposegmented Neuts Not Reportable 06/08/21 04:25 Hypogranular Neuts Not Reportable 06/08/21 04:25 Smudge Cells Not Reportable 06/08/21 04:25 Toxic Granulation Not Reportable 06/08/21 04:25 Toxic Vacuolation Not Reportable 06/08/21 04:25 Dohle Bodies Not Reportable 06/08/21 04:25 Pelger-Huet Anomaly Not Reportable 06/08/21 04:25 Peter Rods Not Reportable 06/08/21 04:25 Platelet Estimate Consistent w auto 06/08/21 04:25 Clumped Platelets Not Reportable 06/08/21 04:25 Plt Clumps, EDTA Not Reportable 06/08/21 04:25 Large Platelets Not Reportable 06/08/21 04:25 Giant Platelets Not Reportable 06/08/21 04:25 Platelet Satelliting Not Reportable 06/08/21 04:25 Plt Morphology Comment Not Reportable 06/08/21 04:25 RBC Morphology Not Reportable 06/08/21 04:25 Dimorphic RBCs Not Reportable 06/08/21 04:25 Polychromasia Not Reportable 06/08/21 04:25 Hypochromasia Not Reportable 06/08/21 04:25 Poikilocytosis Not Reportable 06/08/21 04:25 Anisocytosis Not Reportable 06/08/21 04:25 Microcytosis Not Reportable 06/08/21 04:25 Macrocytosis Not Reportable 06/08/21 04:25 Spherocytes Not Reportable 06/08/21 04:25 Pappenheimer Bodies Not Reportable 06/08/21 04:25 Sickle Cells Not Reportable 06/08/21 04:25 Target Cells Not Reportable 06/08/21 04:25 Tear Drop Cells Not Reportable 06/08/21 04:25 Ovalocytes Not Reportable 06/08/21 04:25 Helmet Cells Not Reportable 06/08/21 04:25 Toribio-Bol[place] Bodies Not Reportable 06/08/21 04:25 [place] Rings Not Reportable 06/08/21 04:25 Lin Cells Not Reportable 06/08/21 04:25 Bite Cells Not Reportable 06/08/21 04:25 Crenated Cell Not Reportable 06/08/21 04:25 Elliptocytes Not Reportable 06/08/21 04:25 Acanthocytes (Spur) Not Reportable 06/08/21 04:25 Rouleaux Not Reportable 06/08/21 04:25 Hemoglobin C Crystals Not Reportable 06/08/21 04:25 Schistocytes Not Reportable 06/08/21 04:25 Malaria parasites Not Reportable 06/08/21 04:25 Shravan Bodies Not Reportable 06/08/21 04:25 Hem Pathologist Commnt No 06/08/21 04:25 PT 14.6 Sec. (12.2-14.9) 06/09/21 05:20 INR 1.09 (0.87-1.13) 06/09/21 05:20 APTT 72.2 Sec. (24.2-36.6) H* 06/05/21 12:20 D-Dimer > 83480 ng/mlDDU (0-234) H 05/25/21 09:21 Heparin Anti-Xa Level 0.84 U.I./ml (0.3-0.7) H 06/11/21 04:17 ABG pH 7.481 (7.320-7.450) H 06/02/21 04:13 POC ABG pCO2 36.9 mmHg (32.0-48.0) 06/02/21 04:13 ABG pCO2 30.3 mm Hg 05/29/21 05:28 POC ABG pO2 80.0 mmHg (83-108) L 06/02/21 04:13 ABG pO2 96.2 mm Hg (80.0-90.0) H 05/29/21 05:28 POC ABG HCO3 26.9 06/02/21 04:13 ABG HCO3 24.0 mmol/L (20.0-26.0) 05/29/21 05:28 ABG O2 Saturation 95.7 (0-100) 06/02/21 04:13 ABG O2 Content 10.3 (0.0-44) 05/29/21 05:28 POC ABG Base Excess 3.4 06/02/21 04:13 ABG Base Excess 1.2 mmol/L (-2.0-3.0) 05/29/21 05:28 ABG Hemoglobin 11.1 (12.0-17.5) L 06/02/21 04:13 ABG Oxyhemoglobin 95.2 (94-98) 06/02/21 04:13 ABG Carboxyhemoglobin 1.6 % (0.0-5.0) 05/29/21 05:28 ABG Methemoglobin 0.3 (0.0-1.5) 06/02/21 04:13 ABG Sodium 131.9 mmol/L (136.0-145.0) L 06/02/21 04:13 ABG Potassium 3.8 mmol/L (3.40-4.50) 06/02/21 04:13 ABG Chloride 98.0 mmol/L (98-107) 06/02/21 04:13 ABG Glucose 231 mg/dL (65-95) H 06/02/21 04:13 Oxyhemoglobin 96.0 % (95.0-99.0) 05/29/21 05:28 Carboxyhemoglobin 0.2 (0.5-1.5) L 06/02/21 04:13 FiO2 30 % 05/29/21 05:28 FiO2 % 30.0 06/02/21 04:13 Sodium 146 mmol/L (137-145) H D 06/10/21 04:42 Potassium 3.4 mmol/L (3.6-5.0) L D 06/10/21 04:42 Chloride 101.6 mmol/L (98-107) 06/10/21 04:42 Carbon Dioxide 23 mmol/L (22-30) 06/10/21 04:42 Anion Gap 25 mmol/L 06/10/21 04:42 BUN 62 mg/dL (7-17) H 06/10/21 04:42 Creatinine 1.1 mg/dL (0.6-1.2) 06/10/21 04:42 Estimated GFR 60 ml/min 06/10/21 04:42 BUN/Creatinine Ratio 56 % 06/10/21 04:42 Glucose 174 mg/dL (65-100) H 06/10/21 04:42 POC Glucose 138 mg/dL (70-105) H 06/11/21 05:22 Lactic Acid 2.30 mmol/L (0.7-2.0) H* 05/26/21 05:49 Calcium 8.8 mg/dL (8.4-10.2) 06/10/21 04:42 Ferritin 321.6 ng/mL (10.0-200.0) H 05/25/21 09:21 Total Bilirubin 0.30 mg/dL (0.1-1.2) 06/06/21 04:57 Direct Bilirubin < 0.2 mg/dL (0-0.2) 05/25/21 09:21 Indirect Bilirubin 0.2 mg/dL 05/25/21 09:21 AST 99 units/L (5-40) H 06/06/21 04:57 ALT 136 units/L (7-56) H 06/06/21 04:57 Alkaline Phosphatase 312 units/L (35-129) H 06/06/21 04:57 Lactate Dehydrogenase 445 units/L (91-180) H 05/25/21 09:21 Troponin T 0.226 ng/mL (0.00-0.029) H* D 05/25/21 15:19 C-Reactive Protein 28.90 mg/dL (0.00-1.30) H 06/07/21 14:52 NT-Pro-B Natriuret Pep 173.2 pg/mL (0-900) 05/25/21 09:21 Total Protein 6.1 g/dL (6.3-8.2) L 06/06/21 04:57 Albumin 3.1 g/dL (3.9-5) L 06/06/21 04:57 Albumin/Globulin Ratio 1.0 % 06/06/21 04:57 Triglycerides 124 mg/dL (2-149) 05/30/21 11:19 Cholesterol 198 mg/dL (50-199) 05/25/21 15:19 LDL Cholesterol Direct 80 mg/dL (50-130) 05/25/21 15:19 HDL Cholesterol 64 mg/dL (40-59) H 05/25/21 15:19 Cholesterol/HDL Ratio 3.09 % 05/25/21 15:19 Procalcitonin 0.36 ng/mL (<0.15) 06/07/21 14:52 Arterial Blood Glucose 231 mg/dL (65-95) H 06/02/21 04:13 Arterial Blood Ionized Calcium 4.6 mg/dL (4.6-5.3) 06/02/21 04:13 Urine Color Straw (Yellow) 05/25/21 10:42 Urine Turbidity Clear (Clear) 05/25/21 10:42 Urine pH 6.0 (5.0-7.0) 05/25/21 10:42 Ur Specific [place] 1.007 (1.003-1.030) 05/25/21 10:42 Urine Protein 100 mg/dl mg/dL (Negative) 05/25/21 10:42 Urine Glucose (UA) >=500 mg/dL (Negative) 05/25/21 10:42 Urine Ketones Neg mg/dL (Negative) 05/25/21 10:42 Urine Blood Mod (Negative) 05/25/21 10:42 Urine Nitrite Neg (Negative) 05/25/21 10:42 Ur Reducing Substances Not Reportable 05/25/21 10:42 Urine Bilirubin Neg (Negative) 05/25/21 10:42 Urine Ictotest Not Reportable 05/25/21 10:42 Urine Urobilinogen < 2.0 mg/dL (<2.0) 05/25/21 10:42 Ur Leukocyte Esterase Neg (Negative) 05/25/21 10:42 Urine WBC (Auto) 11.0 /HPF (0.0-6.0) H 05/25/21 10:42 Urine RBC (Auto) 1.0 /HPF (0.0-6.0) 05/25/21 10:42 U Epithel Cells (Auto) < 1.0 /HPF (0-13.0) 05/25/21 10:42 Urine Bacteria (Auto) 4+ /HPF (Negative) 05/25/21 10:42 Urine Mucus Few /HPF 05/25/21 10:42 Coronavirus (PCR) Negative (Negative) 05/30/21 08:15 Blood Type O POSITIVE 05/25/21 14:07 Antibody Screen Negative 05/25/21 14:07 Tan/IV: Voiding Method External Female Catheter Active Medications - Current Medications Current Medications: Generic Name Dose Route Start Last Admin Trade Name Freq PRN Reason Stop Dose Admin Acetaminophen 650 mg 05/25/21 13:48 05/28/21 04:14 Acetaminophen 325 Mg Tab PO 650 mg Q6H PRN Administration Pain MILD(1-3)/Fever >100.5/SOTOMAYOR Lipase/Protease/Amylase 1 each 05/26/21 10:00 Lipase 10,500/Protease 25,000/Amylase 43,750 (Units) Dr Munguia FEEDTUBE PRN PRN For Clogged Feeding Tube Bisacodyl 10 mg 06/08/21 10:00 Bisacodyl 10 Mg Rect Supp AK QDAY PRN Constipation Dextrose 50 ml 05/28/21 14:28 Dextrose 50% In Water (25gm) 50 Ml Syringe IV Q30MIN PRN Hypoglycemia Protocol Docusate Sodium 100 mg 06/08/21 10:00 06/10/21 21:31 Docusate Sodium 100 Mg/10 Ml Oral Liqd PO 100 mg BID ABDIRAHMAN Administration Doxazosin Mesylate 2 mg 06/01/21 12:00 06/10/21 21:31 Doxazosin 1 Mg Tab PO 2 mg BID ABDIRAHMAN Administration Famotidine 20 mg 05/29/21 10:00 06/10/21 21:31 Famotidine 20 Mg Tab FEEDTUBE 20 mg BID ABDIRAHMAN Administration Glycopyrrolate 2 mg 06/01/21 09:00 06/10/21 21:32 Glycopyrrolate 2 Mg Tab PO 2 mg TID ABDIRAHMAN Administration Heparin Sodium (Porcine) 2,700 unit 05/25/21 13:41 05/30/21 17:46 Heparin 10,000 Units/10 Ml Vial 40 unit/kg (2700 unit) 2,520 unit IV Administration Q6H PRN Anti-Xa Assay < 0.1 units/ml Hydralazine HCl 10 mg 06/01/21 11:43 06/07/21 17:23 Hydralazine 20 Mg/1 Ml Inj IV 10 mg Q4HR PRN Administration SBP >160 Hydralazine HCl 50 mg 06/03/21 22:00 06/11/21 05:32 Hydralazine 25 Mg Tab PO 50 mg Q8HR ABDIRAHMAN Administration Hydrophilic Ointment 1 applic 05/25/21 19:04 Lip Therapy Vaseline TP Q2HR PRN Dry Lips Heparin Sodium/Sodium Chloride 25,000 unit in 500 mls @ 20 mls/hr 05/25/21 15:00 06/11/21 05:36 Heparin/ 0.45% Nacl-25,000 Unit/500 Ml IV 1,100 units/hr TITRATE ABDIRAHMAN 22 mls/hr Titration Protocol 1,000 UNITS/HR Insulin Glargine 25 units 06/09/21 22:00 06/10/21 09:41 Insulin Glargine 100 Units/Ml SUB-Q Not Given DAILY [facility] Insulin Human Lispro 0 unit 05/29/21 12:00 06/11/21 05:34 Insulin Lispro 100 Unit/Ml SUB-Q Not Given Q6HR [facility] Protocol Labetalol HCl 300 mg 06/03/21 13:40 06/10/21 21:31 Labetalol 100 Mg Tab PO 300 mg BID ABDIRAHMAN Administration Levetiracetam 250 mg 06/01/21 22:00 06/10/21 21:31 Levetiracetam 500 Mg/5 Ml Oral Liqd FEEDTUBE 250 mg Q12HR ABDIRAHMAN Administration Metoclopramide HCl 5 mg 06/09/21 16:00 06/11/21 05:33 Metoclopramide 10 Mg/2 Ml Inj IV Not Given Q6H [facility] Multi-Ingred Cream/Lotion/Oil/Oint 1 applic 05/25/21 19:04 Mineral Oil/Petrolatum, White Ophth Oint 3.5 Gm OU Q4HR PRN Dry Eye(s) Polyethylene Glycol 17 gm 06/05/21 11:00 06/10/21 09:40 Polyethylene Glycol 3350 17 Gm Powder PO 17 gm QDAY ABDIRAHMAN Administration Senna/Docusate Sodium 1 tab 05/25/21 22:00 06/10/21 21:32 Sennosides/Docusate Sodium 8.6/50 Mg Tab FEEDTUBE 1 tab BID ABDIRAHMAN Administration Simple Syrup 15 ml 05/26/21 10:00 Simple Syrup 15 Ml FEEDTUBE PRN PRN Hypoglycemia Simple Syrup 30 ml 05/26/21 10:00 Simple Syrup 15 Ml FEEDTUBE PRN PRN Hypoglycemia Sodium Bicarbonate 325 mg 05/26/21 10:00 Sodium Bicarbonate 325 Mg Tab FEEDTUBE PRN PRN For Clogged Feeding Tube Sodium Chloride 10 ml 05/25/21 22:00 06/10/21 21:31 Sodium Chloride 0.9% 10 Ml Flush Syringe IV 10 ml BID ABDIRAHMAN Administration Sodium Chloride 10 ml 05/25/21 13:48 06/04/21 03:57 Sodium Chloride 0.9% 10 Ml Flush Syringe IV 10 ml PRN PRN Administration LINE FLUSH Valsartan 160 mg 06/10/21 22:30 06/10/21 22:47 Valsartan 40 Mg Tab PO 160 mg BID ABDIRAHMAN Administration Nutrition/Malnutrition Assess - Dietary Evaluation Nutrition/Malnutrition Findings: Nutrition Notes Start: 05/26/21 09:00 Freq: Status: Active Protocol: Document 06/07/21 12:09 GB (Rec: 06/07/21 12:24 GB [email or web address]) Nutrition Notes Initial or Follow up Reassessment Current Diagnosis COPD,Diabetes,Sepsis, Hypertension,Respiratory Failure Other Pertinent Diagnosis cardiac arrest, seizure disorder Current Diet NPO, Tube feeding Vital 1.2 @ 50 Labs/Tests 06/07: K 5.4, BUN 55, (glucose 178 -showing improvement) Pertinent Medications NaCl, Na Polystyrene Sulfaonate Height 5 ft 4 in Weight 63 kg [place] Body Weight (kg) 54.54 BMI 23.8 Weight change and time frame -6.6% since admission Weight Status Appropriate Subjective/Other Information Ventilation continues, TF continues, Son(s) approved to visit today Percent of energy/protein needs met: TF goal rate meets 75% or greater of estimated energy needs Burn Absent Trauma Absent GI Symptoms None Food Allergy No Current % PO Other Minimum of two criteria No #1 Nutrition Diagnosis Inadequate oral intake Comments: 06/02: On vent. TF continues. 06/07: Ventilation continues, TF continues. Etiology ARF As Evidenced by Signs and Symptoms pt on vent and unable to consume PO Diagnosis Progress(for reassessment Continues documentation) Is patient on ventilator? Yes Is Patient Ambulatory and/or Out of Bed No REE-([facility]-confined to bed) 1385.676 Kcal/Kg value to use for calculation 23 Approximate Energy Requirements Using 1449 kcal/Kg Calculation Used for Recommendations Kcal/kg Additional Notes Protein: (1-1.5g/kg @63kg) 63- 95g Fluid: 1 ml/kcal or per MD Nutrition Intervention Change Diet Order: Continue NPO Nutrition Support: Vital AF 1.2 at 50 ml/hr Flush 75 ml q4h 06/02: continues 06/07: continues Kcal 1,440 Protein (gm) 90 Fat (gm) 65 Fluid (mL) 973 Goal #1 Meet 75% or greater of protein and energy needs via TF Follow-Up By: 06/14/21 Additional Comments son(s) approved to visit mom today. Pt trach/PEG
[2021-06-11] MEDS: SENNOSIDES/DOCUSATE SODIUM 8.6/50 MG TAB FEEDTUBE SCH ×2 (09:27→21:18)
[2021-06-11] MEDS: POLYETHYLENE GLYCOL 3350 17 GM POWDER PO SCH (09:27)
[2021-06-11] MEDS: DOCUSATE SODIUM 100 MG/10 ML ORAL LIQD PO SCH ×2 (09:27→21:18)
[2021-06-11] MEDS: levETIRAcetam 500 MG/5 ML ORAL LIQD FEEDTUBE SCH ×2 (09:28→22:00)
[2021-06-11] MEDS: DOXAZOSIN 1 MG TAB PO SCH ×2 (09:29→21:18)
--- NOTE | 2021-06-11 09:30 | Progress Note ---
Assessment and Plan - Patient Problems (1) Anoxic brain injury Current Visit: Yes Status: Acute Plan to address problem: 1) Tracheostomy and PEG tomorrow afternoon. 2) NPO after MN 3) Hold IV Heparin 4 hours before #1. Subjective Date of service: 06/11/21 Patient Reports: Positive: no new complaints Objective Vital Signs - 12hr 06/10/21 06/10/21 06/10/21 21:30 21:31 22:00 Temperature Pulse Rate 71 69 78 Respiratory 12 12 Rate Blood Pressure 154/59 154/59 161/63 O2 Sat by Pulse 100 100 Oximetry 06/10/21 06/10/21 06/10/21 22:30 22:47 23:01 Temperature Pulse Rate 64 89 87 Respiratory 12 16 Rate Blood Pressure 130/53 130/53 166/70 O2 Sat by Pulse 100 100 Oximetry 06/10/21 06/10/21 06/10/21 23:03 23:30 23:31 Temperature Pulse Rate 90 74 82 Respiratory 19 12 Rate Blood Pressure 166/70 153/62 166/70 O2 Sat by Pulse 100 100 100 Oximetry 06/11/21 06/11/21 06/11/21 00:00 00:01 00:30 Temperature Pulse Rate 65 66 64 Respiratory 12 12 Rate Blood Pressure 129/53 132/58 O2 Sat by Pulse 100 100 Oximetry 06/11/21 06/11/21 06/11/21 01:00 01:31 02:00 Temperature Pulse Rate 73 80 69 Respiratory 12 16 12 Rate Blood Pressure 121/67 127/67 121/64 O2 Sat by Pulse 100 100 100 Oximetry 06/11/21 06/11/21 06/11/21 02:30 03:01 03:30 Temperature Pulse Rate 69 73 69 Respiratory 12 12 12 Rate Blood Pressure 139/62 152/64 134/59 O2 Sat by Pulse 100 100 100 Oximetry 06/11/21 06/11/21 06/11/21 04:00 04:26 04:30 Temperature Pulse Rate 77 80 72 Respiratory 12 12 Rate Blood Pressure 159/66 159/66 165/70 O2 Sat by Pulse 100 100 100 Oximetry 06/11/21 06/11/21 06/11/21 05:00 05:10 05:31 Temperature Pulse Rate 72 71 Respiratory 12 17 16 Rate Blood Pressure 163/66 178/64 O2 Sat by Pulse 100 99 100 Oximetry 06/11/21 06/11/21 06/11/21 05:32 06:00 06:30 Temperature Pulse Rate 81 75 69 Respiratory 12 12 Rate Blood Pressure 178/64 165/68 140/60 O2 Sat by Pulse 100 100 Oximetry 06/11/21 06/11/21 06/11/21 07:00 07:01 07:30 Temperature 98.3 F Pulse Rate 68 69 Respiratory 12 12 Rate Blood Pressure 137/57 145/62 O2 Sat by Pulse 100 100 Oximetry 06/11/21 06/11/21 06/11/21 07:36 08:01 08:20 Temperature Pulse Rate 73 93 H Respiratory 21 Rate Blood Pressure 145/62 184/76 O2 Sat by Pulse 100 98 99 Oximetry - Labs 06/10/21 04:42 06/10/21 04:42
[2021-06-11] MEDS: INSULIN GLARGINE 100 UNITS/ML SUB-Q SCH ×2 (09:34→09:40)
[2021-06-11] MEDS: FAMOTIDINE 20 MG TAB FEEDTUBE SCH ×2 (09:35→21:18)
[2021-06-11] MEDS: VALSARTAN 160MG TAB PO SCH ×2 (09:49→21:19)
--- NOTE | 2021-06-11 10:01 | Progress Note ---
Assessment and Plan 1. Status post out of hospital cardiopulmonary arrest 2. Respiratory failure currently intubated on mechanical ventilator 3. Anoxic encephalopathy 4. Paroxysmal atrial fibrillation currently in sinus rhythm 4. Seizure disorder 5. Essential hypertension Plan. Patient is currently is hemodynamically stable continue supportive cardiac management. Subjective Date of service: 06/11/21 Principal diagnosis: Ac hypoxemic resp failure; Cardiac arrest; Seizures; Sepsis; AMS; A-Fib RVR Interval history: No change in clinical status Objective Vital Signs Temp Pulse Resp BP Pulse Ox 06/11/21 09:49 74 164/66 06/11/21 09:29 77 161/68 06/11/21 09:28 77 161/68 06/11/21 08:20 99 06/11/21 08:01 93 H 21 184/76 98 06/11/21 07:36 73 145/62 100 06/11/21 07:30 69 12 145/62 100 06/11/21 07:01 98.3 F 06/11/21 07:00 68 12 137/57 100 06/11/21 06:30 69 12 140/60 100 06/11/21 06:00 75 12 165/68 100 06/11/21 05:32 81 178/64 06/11/21 05:31 71 16 178/64 100 06/11/21 05:10 17 99 06/11/21 05:00 72 12 163/66 100 06/11/21 04:30 72 12 165/70 100 06/11/21 04:26 80 159/66 100 06/11/21 04:00 77 12 159/66 100 06/11/21 03:30 69 12 134/59 100 06/11/21 03:01 73 12 152/64 100 06/11/21 02:30 69 12 139/62 100 06/11/21 02:00 69 12 121/64 100 06/11/21 01:31 80 16 127/67 100 06/11/21 01:00 73 12 121/67 100 06/11/21 00:30 64 12 132/58 100 06/11/21 00:01 66 12 129/53 100 06/11/21 00:00 65 06/10/21 23:31 82 166/70 100 06/10/21 23:30 74 12 153/62 100 06/10/21 23:03 90 19 166/70 100 06/10/21 23:01 87 16 166/70 100 06/10/21 22:47 89 130/53 06/10/21 22:30 64 12 130/53 100 06/10/21 22:00 78 12 161/63 100 06/10/21 21:31 69 154/59 06/10/21 21:30 71 12 154/59 100 06/10/21 21:00 77 13 156/64 100 06/10/21 20:31 92 H 19 178/70 100 06/10/21 20:00 97.6 F 62 12 136/56 100 06/10/21 19:33 84 142/58 100 06/10/21 19:30 66 12 147/60 100 06/10/21 19:01 65 12 142/58 100 06/10/21 18:30 68 12 130/57 100 06/10/21 18:00 75 12 151/63 99 06/10/21 17:30 93 H 13 172/88 98 06/10/21 17:00 68 12 145/61 99 06/10/21 16:30 72 12 157/67 99 06/10/21 16:00 98.8 F 81 34 H 171/73 99 06/10/21 15:43 64 145/63 100 06/10/21 15:30 66 21 138/60 99 06/10/21 15:00 85 16 182/79 100 06/10/21 14:33 78 175/80 06/10/21 14:31 79 12 175/80 99 06/10/21 14:00 61 14 145/63 100 06/10/21 13:30 60 12 138/61 100 06/10/21 13:00 61 17 132/59 100 06/10/21 12:31 66 14 154/66 99 06/10/21 12:01 63 14 152/59 100 06/10/21 12:00 66 20 98 06/10/21 11:54 97.7 F 06/10/21 11:30 58 L 13 138/58 100 06/10/21 11:16 60 13 136/60 100 06/10/21 11:00 59 L 14 136/60 100 06/10/21 10:30 65 15 156/68 100 - Physical Examination General: Other (Unresponsive, on the vent) HEENT: Positive: Other (Pupils for) Neck: Positive: neck supple Cardiac: Positive: Regular Rate, S1/S2, PMI, Laterally Displaced. Negative: S3, S4 Lungs: Positive: Normal Breath Sounds, No Wheeze, Rales, Rhonchi Neuro: Positive: Weakness (Unresponsive, on the vent) Abdomen: Positive: Soft Skin: Positive: Clear Extremities: Absent: edema - Allied health notes Allied health notes reviewed: nursing
[2021-06-11] MEDS: HEPARIN/ 0.45% NACL DRIP 25,000 UNIT/500 ML BAG IV SCH (15:08)
--- NOTE | 2021-06-11 15:15 | Progress Note ---
Assessment and Plan Acute hypoxemic respiratory failure on MVS Cardiopulmonary arrest wtih ROSC Seizure disorder Sepsis Toxic metabolic encephalopathy, possible anoxia Atrial fibrillation with RVR Metabolic acidosis Bilateral lower lobe infiltrates - repeat KUB - Mag citrate 300 mls p.o. X 1 - advance tube feeds by 10 ml's every 12 hours till back at goal rate - continue Reglan - KCL 40 meq po X 1 - repeat BMP & Mg levels in am - continue care as below otherwise; - daily SAT and SBT assessment as tolerated - continue to wean supplemental oxygen for target O2 sat's > 90% acutely - VAP bundle addressed - continue lung protective strategies - continue bronchodilators with pulmonary hygiene per RT - wean per pulmonary driven protocols otherwise - continue accuchecks with glycemic control per SSI (While critically ill target blood glucose of 140-180 mg/dL; avoid hypoglycemia) - sedation prn for target RASS 0 to -1 - avoid nephrotoxins, renally dose all medications - continue scopolamine for secretion control - continue Keppra as AED - continue to avoid benzodiazepine's, reduce the possibility of delirium - AB's per ID rec's - prn analgesia per CPOT score - Maintenance of sleep-wake cycle, avoid delirium - continue enteral nutritional support at goal rate as tolerated - G.I. & VTE prophylaxis - PT/OT/ROM exercises - continue mobility protocols for pressure ulcer prophylaxis - Monitor hemodynamics closely - continue other care per attending / other consultants - discharge planning ongoing concurrently COVID SPECIFIC INTERVENTIONS - COVID-19 PCR negative .... Re-evaluate in am & prn CONDITION: CRITICAL PROGNOSIS: GUARDED CODE STATUS: FULL CODE The high probability of a clinically significant, sudden or life-threatening deterioration of the [respiratory, cardiovascular & neurologic] system(s) required my full and direct attention, intervention and personal management. The aggregate critical care time was [35] minutes without overlap. Time includes spent on; [x] Data Review and interpretation [x] Patient assessment and monitoring of vital signs [x] Documentation [x] Medication orders and management Subjective Date of service: 06/11/21 Principal diagnosis: Ac hypoxemic resp failure; Cardiac arrest; Seizures; Sepsis; AMS; A-Fib RVR Interval history: Patient is seen today for: Acute hypoxemic respiratory failure; Cardiac arrest wtih ROSC; Seizure disorder; Sepsis; AMS; A-Fib with RVR Seen and examined at bedside; 24hour events reviewed; nursing and respiratory care staff consulted; no adverse overnight events reported to me; resting in bed; remains on MVS; tolerating SBT better today; tolerating trickle feeds at 10 cc/hr; no emesis or overt aspiration; no high grade fevers Objective Vital Signs - 12hr 06/11/21 06/11/21 06/11/21 03:30 04:00 04:26 Temperature Pulse Rate 69 77 80 Respiratory 12 12 Rate Blood Pressure 134/59 159/66 159/66 O2 Sat by Pulse 100 100 100 Oximetry 06/11/21 06/11/21 06/11/21 04:30 05:00 05:10 Temperature Pulse Rate 72 72 Respiratory 12 12 17 Rate Blood Pressure 165/70 163/66 O2 Sat by Pulse 100 100 99 Oximetry 06/11/21 06/11/21 06/11/21 05:31 05:32 06:00 Temperature Pulse Rate 71 81 75 Respiratory 16 12 Rate Blood Pressure 178/64 178/64 165/68 O2 Sat by Pulse 100 100 Oximetry 06/11/21 06/11/21 06/11/21 06:30 07:00 07:01 Temperature 98.3 F Pulse Rate 69 68 Respiratory 12 12 Rate Blood Pressure 140/60 137/57 O2 Sat by Pulse 100 100 Oximetry 06/11/21 06/11/21 06/11/21 07:30 07:36 08:01 Temperature Pulse Rate 69 73 93 H Respiratory 12 21 Rate Blood Pressure 145/62 145/62 184/76 O2 Sat by Pulse 100 100 98 Oximetry 06/11/21 06/11/21 06/11/21 08:20 08:30 09:00 Temperature Pulse Rate 83 74 Respiratory 15 12 Rate Blood Pressure 166/66 161/68 O2 Sat by Pulse 99 98 99 Oximetry 06/11/21 06/11/21 06/11/21 09:28 09:29 09:30 Temperature Pulse Rate 77 77 75 Respiratory 12 Rate Blood Pressure 161/68 161/68 164/66 O2 Sat by Pulse 99 Oximetry 06/11/21 06/11/21 06/11/21 09:49 10:00 10:31 Temperature Pulse Rate 74 79 72 Respiratory 17 12 Rate Blood Pressure 164/66 165/68 135/54 O2 Sat by Pulse 100 93 Oximetry 06/11/21 06/11/21 06/11/21 11:00 11:30 12:01 Temperature Pulse Rate 73 71 83 Respiratory 13 12 21 Rate Blood Pressure 141/56 140/49 170/68 O2 Sat by Pulse 94 95 100 Oximetry 06/11/21 06/11/21 12:10 13:38 Temperature Pulse Rate 82 78 Respiratory 25 H Rate Blood Pressure 170/68 148/56 O2 Sat by Pulse 100 Oximetry Constitutional: no acute distress, other (elderly female with mildly increased respiratory effort at rest on MVS) Eyes: non-icteric ENT: oropharynx moist, other (+ midline tracheostomy) Neck: supple, no lymphadenopathy Effort: mildly labored Ascultation: Bilateral: diminished breath sounds, rhonchi Percussion: Bilateral: not dull Cardiovascular: regular rate and rhythm, other (S1,S2) Gastrointestinal: normoactive bowel sounds, soft, non-tender, other (+ PEG tube; distended but soft) Integumentary: normal Extremities: no cyanosis, pulses normal, no ischemia or petechiae, other (Right femoral CVL) Neurologic: pupils equal and round, unable to assess, other (encephalopathic) Psychiatric: other (unable to assess) CBC and BMP: 06/12/21 04:44 06/12/21 04:44 ABG, PT/INR, D-dimer: ABG ABG pH 7.481 (7.320-7.450) H 06/02/21 04:13 POC ABG pCO2 36.9 mmHg (32.0-48.0) 06/02/21 04:13 ABG pCO2 30.3 mm Hg 05/29/21 05:28 POC ABG pO2 80.0 mmHg (83-108) L 06/02/21 04:13 ABG pO2 96.2 mm Hg (80.0-90.0) H 05/29/21 05:28 POC ABG HCO3 26.9 06/02/21 04:13 ABG O2 Saturation 95.7 (0-100) 06/02/21 04:13 PT/INR, D-dimer PT 14.6 Sec. (12.2-14.9) 06/09/21 05:20 INR 1.09 (0.87-1.13) 06/09/21 05:20 D-Dimer > 72699 ng/mlDDU (0-234) H 05/25/21 09:21 Abnormal lab findings: Abnormal Labs 05/25/21 05/25/21 05/25/21 09:07 09:21 09:21 WBC 17.1 H RBC Hgb Hct MCV 106 H MCH 33 H MCHC RDW 15.6 H [place] # (Auto) Seg Neutrophils % Seg Neuts % (Manual) Lymphocytes % (Manual) Monocytes % (Manual) Seg Neutrophils # Seg Neutrophils # Man 10.1 H Lymphocytes # (Manual) 5.6 H Monocytes # (Manual) PT 15.0 H APTT 44.3 H D-Dimer > 17794 H Heparin Anti-Xa Level ABG pH 7.116 L POC ABG pCO2 POC ABG pO2 ABG pO2 ABG Hemoglobin ABG Oxyhemoglobin 93.7 L ABG Sodium ABG Potassium ABG Chloride ABG Glucose 395 H Carboxyhemoglobin Sodium Potassium Chloride Carbon Dioxide BUN Creatinine Glucose POC Glucose Lactic Acid Calcium Ferritin AST ALT Alkaline Phosphatase Lactate Dehydrogenase Troponin T C-Reactive Protein Total Protein Albumin HDL Cholesterol Arterial Blood Glucose 395 H Arterial Blood Ionized Calcium 4.4 L Urine WBC (Auto) 05/25/21 05/25/21 05/25/21 09:21 09:21 09:21 WBC RBC Hgb Hct MCV MCH MCHC RDW [place] # (Auto) Seg Neutrophils % Seg Neuts % (Manual) Lymphocytes % (Manual) Monocytes % (Manual) Seg Neutrophils # Seg Neutrophils # Man Lymphocytes # (Manual) Monocytes # (Manual) PT APTT D-Dimer Heparin Anti-Xa Level ABG pH POC ABG pCO2 POC ABG pO2 ABG pO2 ABG Hemoglobin ABG Oxyhemoglobin ABG Sodium ABG Potassium ABG Chloride ABG Glucose Carboxyhemoglobin Sodium Potassium Chloride Carbon Dioxide 10 L BUN Creatinine Glucose 423 H 424 H POC Glucose Lactic Acid Calcium 8.2 L Ferritin 321.6 H AST 162 H ALT 119 H Alkaline Phosphatase Lactate Dehydrogenase 445 H Troponin T C-Reactive Protein Total Protein 5.6 L Albumin 3.2 L HDL Cholesterol Arterial Blood Glucose Arterial Blood Ionized Calcium Urine WBC (Auto) 05/25/21 05/25/21 05/25/21 09:35 10:42 11:12 WBC RBC Hgb Hct MCV MCH MCHC RDW [place] # (Auto) Seg Neutrophils % Seg Neuts % (Manual) Lymphocytes % (Manual) Monocytes % (Manual) Seg Neutrophils # Seg Neutrophils # Man Lymphocytes # (Manual) Monocytes # (Manual) PT APTT D-Dimer Heparin Anti-Xa Level ABG pH POC ABG pCO2 POC ABG pO2 ABG pO2 ABG Hemoglobin ABG Oxyhemoglobin ABG Sodium ABG Potassium ABG Chloride ABG Glucose Carboxyhemoglobin Sodium Potassium Chloride Carbon Dioxide BUN Creatinine Glucose POC Glucose Lactic Acid 16.70 H* 7.70 H* Calcium Ferritin AST ALT Alkaline Phosphatase Lactate Dehydrogenase Troponin T C-Reactive Protein Total Protein Albumin HDL Cholesterol Arterial Blood Glucose Arterial Blood Ionized Calcium Urine WBC (Auto) 11.0 H 05/25/21 05/25/21 05/25/21 14:07 15:19 19:04 WBC RBC Hgb Hct MCV MCH MCHC RDW [place] # (Auto) Seg Neutrophils % Seg Neuts % (Manual) Lymphocytes % (Manual) Monocytes % (Manual) Seg Neutrophils # Seg Neutrophils # Man Lymphocytes # (Manual) Monocytes # (Manual) PT APTT D-Dimer Heparin Anti-Xa Level ABG pH POC ABG pCO2 POC ABG pO2 172.2 H ABG pO2 ABG Hemoglobin ABG Oxyhemoglobin 98.7 H ABG Sodium 135.7 L ABG Potassium ABG Chloride ABG Glucose 255 H Carboxyhemoglobin 0.3 L Sodium Potassium Chloride Carbon Dioxide BUN Creatinine Glucose POC Glucose Lactic Acid 3.90 H* Calcium Ferritin AST ALT Alkaline Phosphatase Lactate Dehydrogenase Troponin T 0.226 H* D C-Reactive Protein Total Protein Albumin HDL Cholesterol 64 H Arterial Blood Glucose 255 H Arterial Blood Ionized Calcium 3.8 L Urine WBC (Auto) 05/25/21 05/25/21 05/26/21 21:16 21:16 04:00 WBC RBC Hgb Hct MCV MCH MCHC RDW [place] # (Auto) Seg Neutrophils % Seg Neuts % (Manual) Lymphocytes % (Manual) Monocytes % (Manual) Seg Neutrophils # Seg Neutrophils # Man Lymphocytes # (Manual) Monocytes # (Manual) PT APTT D-Dimer Heparin Anti-Xa Level 1.19 H ABG pH 7.547 H POC ABG pCO2 POC ABG pO2 ABG pO2 ABG Hemoglobin 11.9 L ABG Oxyhemoglobin ABG Sodium 133.2 L ABG Potassium 3.1 L ABG Chloride ABG Glucose 243 H Carboxyhemoglobin 0.3 L Sodium Potassium Chloride Carbon Dioxide BUN Creatinine Glucose POC Glucose Lactic Acid 2.50 H* Calcium Ferritin AST ALT Alkaline Phosphatase Lactate Dehydrogenase Troponin T C-Reactive Protein Total Protein Albumin HDL Cholesterol Arterial Blood Glucose 243 H Arterial Blood Ionized Calcium Urine WBC (Auto) 05/26/21 05/26/21 05/26/21 05:49 05:49 17:33 WBC RBC Hgb Hct MCV MCH MCHC RDW [place] # (Auto) Seg Neutrophils % Seg Neuts % (Manual) Lymphocytes % (Manual) Monocytes % (Manual) Seg Neutrophils # Seg Neutrophils # Man Lymphocytes # (Manual) Monocytes # (Manual) PT APTT D-Dimer Heparin Anti-Xa Level ABG pH POC ABG pCO2 POC ABG pO2 ABG pO2 ABG Hemoglobin ABG Oxyhemoglobin ABG Sodium ABG Potassium ABG Chloride ABG Glucose Carboxyhemoglobin Sodium Potassium Chloride Carbon Dioxide BUN Creatinine Glucose 226 H POC Glucose 156 H Lactic Acid 2.30 H* Calcium 7.2 L Ferritin AST 111 H ALT 97 H Alkaline Phosphatase Lactate Dehydrogenase Troponin T C-Reactive Protein Total Protein 5.4 L Albumin 3.3 L HDL Cholesterol Arterial Blood Glucose Arterial Blood Ionized Calcium Urine WBC (Auto) 05/27/21 05/27/21 05/27/21 02:11 02:11 02:11 WBC 14.3 H RBC 3.27 L Hgb Hct MCV 99 H MCH 33 H MCHC RDW 15.3 H [place] # (Auto) 1.0 H Seg Neutrophils % Seg Neuts % (Manual) Lymphocytes % (Manual) Monocytes % (Manual) Seg Neutrophils # 10.0 H Seg Neutrophils # Man Lymphocytes # (Manual) Monocytes # (Manual) PT APTT D-Dimer Heparin Anti-Xa Level 0.80 H ABG pH POC ABG pCO2 POC ABG pO2 ABG pO2 ABG Hemoglobin ABG Oxyhemoglobin ABG Sodium ABG Potassium ABG Chloride ABG Glucose Carboxyhemoglobin Sodium Potassium 2.9 L* D Chloride Carbon Dioxide 31 H BUN 6 L Creatinine Glucose 215 H POC Glucose Lactic Acid Calcium 8.1 L Ferritin AST ALT Alkaline Phosphatase Lactate Dehydrogenase Troponin T C-Reactive Protein Total Protein Albumin HDL Cholesterol Arterial Blood Glucose Arterial Blood Ionized Calcium Urine WBC (Auto) 05/27/21 05/27/21 05/27/21 11:24 12:49 18:06 WBC RBC Hgb Hct MCV MCH MCHC RDW [place] # (Auto) Seg Neutrophils % Seg Neuts % (Manual) Lymphocytes % (Manual) Monocytes % (Manual) Seg Neutrophils # Seg Neutrophils # Man Lymphocytes # (Manual) Monocytes # (Manual) PT APTT D-Dimer Heparin Anti-Xa Level ABG pH POC ABG pCO2 POC ABG pO2 ABG pO2 ABG Hemoglobin ABG Oxyhemoglobin ABG Sodium ABG Potassium ABG Chloride ABG Glucose Carboxyhemoglobin Sodium Potassium Chloride Carbon Dioxide BUN Creatinine Glucose POC Glucose 151 H 165 H 137 H Lactic Acid Calcium Ferritin AST ALT Alkaline Phosphatase Lactate Dehydrogenase Troponin T C-Reactive Protein Total Protein Albumin HDL Cholesterol Arterial Blood Glucose Arterial Blood Ionized Calcium Urine WBC (Auto) 05/28/21 05/28/21 05/28/21 04:00 04:00 06:02 WBC 13.5 H RBC 3.05 L Hgb Hct MCV 100 H MCH 34 H MCHC RDW [place] # (Auto) 0.9 H Seg Neutrophils % 78.2 H Seg Neuts % (Manual) Lymphocytes % (Manual) Monocytes % (Manual) Seg Neutrophils # 10.6 H Seg Neutrophils # Man Lymphocytes # (Manual) Monocytes # (Manual) PT APTT D-Dimer Heparin Anti-Xa Level ABG pH 7.507 H POC ABG pCO2 POC ABG pO2 ABG pO2 ABG Hemoglobin 10.6 L ABG Oxyhemoglobin ABG Sodium 129.4 L ABG Potassium ABG Chloride ABG Glucose 243 H Carboxyhemoglobin 0.2 L Sodium 136 L D Potassium Chloride Carbon Dioxide BUN Creatinine Glucose 215 H POC Glucose Lactic Acid Calcium Ferritin AST ALT Alkaline Phosphatase Lactate Dehydrogenase Troponin T C-Reactive Protein Total Protein Albumin HDL Cholesterol Arterial Blood Glucose 243 H Arterial Blood Ionized Calcium 4.1 L Urine WBC (Auto) 05/28/21 05/28/21 05/29/21 11:27 23:02 04:30 WBC RBC Hgb 9.3 L Hct 26.7 L MCV MCH MCHC RDW [place] # (Auto) Seg Neutrophils % Seg Neuts % (Manual) Lymphocytes % (Manual) Monocytes % (Manual) Seg Neutrophils # Seg Neutrophils # Man Lymphocytes # (Manual) Monocytes # (Manual) PT APTT D-Dimer Heparin Anti-Xa Level ABG pH POC ABG pCO2 POC ABG pO2 ABG pO2 ABG Hemoglobin ABG Oxyhemoglobin ABG Sodium ABG Potassium ABG Chloride ABG Glucose Carboxyhemoglobin Sodium Potassium Chloride Carbon Dioxide BUN Creatinine Glucose POC Glucose 220 H 212 H Lactic Acid Calcium Ferritin AST ALT Alkaline Phosphatase Lactate Dehydrogenase Troponin T C-Reactive Protein Total Protein Albumin HDL Cholesterol Arterial Blood Glucose Arterial Blood Ionized Calcium Urine WBC (Auto) 05/29/21 05/29/21 05/29/21 05:02 05:28 12:55 WBC RBC Hgb Hct MCV MCH MCHC RDW [place] # (Auto) Seg Neutrophils % Seg Neuts % (Manual) Lymphocytes % (Manual) Monocytes % (Manual) Seg Neutrophils # Seg Neutrophils # Man Lymphocytes # (Manual) Monocytes # (Manual) PT APTT D-Dimer Heparin Anti-Xa Level ABG pH 7.516 H POC ABG pCO2 POC ABG pO2 ABG pO2 96.2 H ABG Hemoglobin 7.5 L ABG Oxyhemoglobin ABG Sodium ABG Potassium ABG Chloride ABG Glucose Carboxyhemoglobin Sodium Potassium Chloride Carbon Dioxide BUN Creatinine Glucose POC Glucose 197 H 251 H Lactic Acid Calcium Ferritin AST ALT Alkaline Phosphatase Lactate Dehydrogenase Troponin T C-Reactive Protein Total Protein Albumin HDL Cholesterol Arterial Blood Glucose Arterial Blood Ionized Calcium Urine WBC (Auto) 05/29/21 05/29/21 05/30/21 18:23 23:31 04:10 WBC RBC Hgb Hct MCV MCH MCHC RDW [place] # (Auto) Seg Neutrophils % Seg Neuts % (Manual) Lymphocytes % (Manual) Monocytes % (Manual) Seg Neutrophils # Seg Neutrophils # Man Lymphocytes # (Manual) Monocytes # (Manual) PT APTT D-Dimer Heparin Anti-Xa Level ABG pH 7.532 H POC ABG pCO2 30.0 L POC ABG pO2 78.5 L ABG pO2 ABG Hemoglobin 11.3 L ABG Oxyhemoglobin ABG Sodium 126.7 L ABG Potassium ABG Chloride 94.0 L ABG Glucose 270 H Carboxyhemoglobin 0.4 L Sodium Potassium Chloride Carbon Dioxide BUN Creatinine Glucose POC Glucose 236 H 252 H Lactic Acid Calcium Ferritin AST ALT Alkaline Phosphatase Lactate Dehydrogenase Troponin T C-Reactive Protein Total Protein Albumin HDL Cholesterol Arterial Blood Glucose 270 H Arterial Blood Ionized Calcium 4.4 L Urine WBC (Auto) 05/30/21 05/30/21 05/30/21 05:06 06:23 11:15 WBC RBC Hgb Hct MCV MCH MCHC RDW [place] # (Auto) Seg Neutrophils % Seg Neuts % (Manual) Lymphocytes % (Manual) Monocytes % (Manual) Seg Neutrophils # Seg Neutrophils # Man Lymphocytes # (Manual) Monocytes # (Manual) PT APTT D-Dimer Heparin Anti-Xa Level ABG pH POC ABG pCO2 POC ABG pO2 ABG pO2 ABG Hemoglobin ABG Oxyhemoglobin ABG Sodium ABG Potassium ABG Chloride ABG Glucose Carboxyhemoglobin Sodium 126 L D Potassium Chloride 91.9 L Carbon Dioxide 20 L D BUN Creatinine 0.4 L Glucose 274 H POC Glucose 242 H 346 H Lactic Acid Calcium Ferritin AST ALT Alkaline Phosphatase Lactate Dehydrogenase Troponin T C-Reactive Protein Total Protein Albumin HDL Cholesterol Arterial Blood Glucose Arterial Blood Ionized Calcium Urine WBC (Auto) 05/30/21 05/30/21 05/30/21 11:19 11:19 11:19 WBC 18.9 H RBC 3.36 L Hgb Hct MCV 102 H MCH 33 H MCHC RDW 15.5 H [place] # (Auto) Seg Neutrophils % Seg Neuts % (Manual) Lymphocytes % (Manual) Monocytes % (Manual) Seg Neutrophils # Seg Neutrophils # Man Lymphocytes # (Manual) Monocytes # (Manual) PT APTT D-Dimer Heparin Anti-Xa Level < 0.10 L ABG pH POC ABG pCO2 POC ABG pO2 ABG pO2 ABG Hemoglobin ABG Oxyhemoglobin ABG Sodium ABG Potassium ABG Chloride ABG Glucose Carboxyhemoglobin Sodium 124 L Potassium Chloride Carbon Dioxide BUN Creatinine Glucose POC Glucose Lactic Acid Calcium Ferritin AST ALT Alkaline Phosphatase Lactate Dehydrogenase Troponin T C-Reactive Protein Total Protein Albumin HDL Cholesterol Arterial Blood Glucose Arterial Blood Ionized Calcium Urine WBC (Auto) 05/30/21 05/30/21 05/31/21 17:02 23:27 03:37 WBC RBC Hgb Hct MCV MCH MCHC RDW [place] # (Auto) Seg Neutrophils % Seg Neuts % (Manual) Lymphocytes % (Manual) Monocytes % (Manual) Seg Neutrophils # Seg Neutrophils # Man Lymphocytes # (Manual) Monocytes # (Manual) PT APTT D-Dimer Heparin Anti-Xa Level ABG pH POC ABG pCO2 POC ABG pO2 ABG pO2 ABG Hemoglobin 11.6 L ABG Oxyhemoglobin ABG Sodium 130.0 L ABG Potassium ABG Chloride 95.0 L ABG Glucose 292 H Carboxyhemoglobin Sodium Potassium Chloride Carbon Dioxide BUN Creatinine Glucose POC Glucose 270 H 237 H Lactic Acid Calcium Ferritin AST ALT Alkaline Phosphatase Lactate Dehydrogenase Troponin T C-Reactive Protein Total Protein Albumin HDL Cholesterol Arterial Blood Glucose 292 H Arterial Blood Ionized Calcium Urine WBC (Auto) 05/31/21 05/31/21 05/31/21 04:00 04:00 05:20 WBC 20.9 H RBC 3.13 L Hgb Hct MCV 99 H MCH 34 H MCHC RDW [place] # (Auto) Seg Neutrophils % Seg Neuts % (Manual) 81.0 H Lymphocytes % (Manual) 8.0 L Monocytes % (Manual) 9.0 H Seg Neutrophils # Seg Neutrophils # Man 16.9 H Lymphocytes # (Manual) Monocytes # (Manual) 1.9 H PT APTT D-Dimer Heparin Anti-Xa Level ABG pH POC ABG pCO2 POC ABG pO2 ABG pO2 ABG Hemoglobin ABG Oxyhemoglobin ABG Sodium ABG Potassium ABG Chloride ABG Glucose Carboxyhemoglobin Sodium 133 L D Potassium Chloride 95.4 L Carbon Dioxide 21 L BUN 30 H Creatinine 0.5 L Glucose 305 H POC Glucose 269 H Lactic Acid Calcium Ferritin AST ALT Alkaline Phosphatase Lactate Dehydrogenase Troponin T C-Reactive Protein Total Protein Albumin HDL Cholesterol Arterial Blood Glucose Arterial Blood Ionized Calcium Urine WBC (Auto) 05/31/21 05/31/21 05/31/21 11:40 18:16 23:25 WBC RBC Hgb Hct MCV MCH MCHC RDW [place] # (Auto) Seg Neutrophils % Seg Neuts % (Manual) Lymphocytes % (Manual) Monocytes % (Manual) Seg Neutrophils # Seg Neutrophils # Man Lymphocytes # (Manual) Monocytes # (Manual) PT APTT D-Dimer Heparin Anti-Xa Level ABG pH POC ABG pCO2 POC ABG pO2 ABG pO2 ABG Hemoglobin ABG Oxyhemoglobin ABG Sodium ABG Potassium ABG Chloride ABG Glucose Carboxyhemoglobin Sodium Potassium Chloride Carbon Dioxide BUN Creatinine Glucose POC Glucose 364 H 250 H 231 H Lactic Acid Calcium Ferritin AST ALT Alkaline Phosphatase Lactate Dehydrogenase Troponin T C-Reactive Protein Total Protein Albumin HDL Cholesterol Arterial Blood Glucose Arterial Blood Ionized Calcium Urine WBC (Auto) 06/01/21 06/01/21 06/01/21 04:03 04:58 04:58 WBC 20.7 H RBC 3.20 L Hgb Hct MCV 99 H MCH 34 H MCHC RDW [place] # (Auto) Seg Neutrophils % Seg Neuts % (Manual) 82.0 H Lymphocytes % (Manual) 9.0 L Monocytes % (Manual) Seg Neutrophils # Seg Neutrophils # Man 17.0 H Lymphocytes # (Manual) Monocytes # (Manual) 1.4 H PT APTT D-Dimer Heparin Anti-Xa Level 1.18 H ABG pH 7.520 H POC ABG pCO2 POC ABG pO2 66.0 L ABG pO2 ABG Hemoglobin ABG Oxyhemoglobin 92.5 L ABG Sodium 133.6 L ABG Potassium ABG Chloride ABG Glucose 250 H Carboxyhemoglobin Sodium Potassium Chloride Carbon Dioxide BUN Creatinine Glucose POC Glucose Lactic Acid Calcium Ferritin AST ALT Alkaline Phosphatase Lactate Dehydrogenase Troponin T C-Reactive Protein Total Protein Albumin HDL Cholesterol Arterial Blood Glucose 250 H Arterial Blood Ionized Calcium 4.4 L Urine WBC (Auto) 06/01/21 06/01/21 06/01/21 04:58 05:29 11:39 WBC RBC Hgb Hct MCV MCH MCHC RDW [place] # (Auto) Seg Neutrophils % Seg Neuts % (Manual) Lymphocytes % (Manual) Monocytes % (Manual) Seg Neutrophils # Seg Neutrophils # Man Lymphocytes # (Manual) Monocytes # (Manual) PT APTT D-Dimer Heparin Anti-Xa Level ABG pH POC ABG pCO2 POC ABG pO2 ABG pO2 ABG Hemoglobin ABG Oxyhemoglobin ABG Sodium ABG Potassium ABG Chloride ABG Glucose Carboxyhemoglobin Sodium 131 L Potassium Chloride 95.7 L Carbon Dioxide BUN 30 H Creatinine 0.5 L Glucose 241 H POC Glucose 215 H 299 H Lactic Acid Calcium Ferritin AST ALT Alkaline Phosphatase Lactate Dehydrogenase Troponin T C-Reactive Protein Total Protein Albumin HDL Cholesterol Arterial Blood Glucose Arterial Blood Ionized Calcium Urine WBC (Auto) 06/01/21 06/02/21 06/02/21 18:14 00:12 02:25 WBC 17.4 H RBC 3.09 L Hgb Hct MCV 101 H MCH 34 H MCHC RDW 15.5 H [place] # (Auto) Seg Neutrophils % Seg Neuts % (Manual) Lymphocytes % (Manual) Monocytes % (Manual) Seg Neutrophils # Seg Neutrophils # Man Lymphocytes # (Manual) Monocytes # (Manual) PT APTT D-Dimer Heparin Anti-Xa Level ABG pH POC ABG pCO2 POC ABG pO2 ABG pO2 ABG Hemoglobin ABG Oxyhemoglobin ABG Sodium ABG Potassium ABG Chloride ABG Glucose Carboxyhemoglobin Sodium Potassium Chloride Carbon Dioxide BUN Creatinine Glucose POC Glucose 215 H 175 H Lactic Acid Calcium Ferritin AST ALT Alkaline Phosphatase Lactate Dehydrogenase Troponin T C-Reactive Protein Total Protein Albumin HDL Cholesterol Arterial Blood Glucose Arterial Blood Ionized Calcium Urine WBC (Auto) 06/02/21 06/02/21 06/02/21 02:25 04:13 04:58 WBC RBC Hgb Hct MCV MCH MCHC RDW [place] # (Auto) Seg Neutrophils % Seg Neuts % (Manual) Lymphocytes % (Manual) Monocytes % (Manual) Seg Neutrophils # Seg Neutrophils # Man Lymphocytes # (Manual) Monocytes # (Manual) PT APTT D-Dimer Heparin Anti-Xa Level ABG pH 7.481 H POC ABG pCO2 POC ABG pO2 80.0 L ABG pO2 ABG Hemoglobin 11.1 L ABG Oxyhemoglobin ABG Sodium 131.9 L ABG Potassium ABG Chloride ABG Glucose 231 H Carboxyhemoglobin 0.2 L Sodium 134 L Potassium Chloride 95.8 L Carbon Dioxide BUN 31 H Creatinine 0.5 L Glucose 168 H POC Glucose 230 H Lactic Acid Calcium Ferritin AST ALT Alkaline Phosphatase Lactate Dehydrogenase Troponin T C-Reactive Protein Total Protein Albumin HDL Cholesterol Arterial Blood Glucose 231 H Arterial Blood Ionized Calcium Urine WBC (Auto) 06/02/21 06/02/21 06/02/21 11:27 17:47 23:53 WBC RBC Hgb Hct MCV MCH MCHC RDW [place] # (Auto) Seg Neutrophils % Seg Neuts % (Manual) Lymphocytes % (Manual) Monocytes % (Manual) Seg Neutrophils # Seg Neutrophils # Man Lymphocytes # (Manual) Monocytes # (Manual) PT APTT D-Dimer Heparin Anti-Xa Level 0.80 H ABG pH POC ABG pCO2 POC ABG pO2 ABG pO2 ABG Hemoglobin ABG Oxyhemoglobin ABG Sodium ABG Potassium ABG Chloride ABG Glucose Carboxyhemoglobin Sodium Potassium Chloride Carbon Dioxide BUN Creatinine Glucose POC Glucose 259 H 297 H Lactic Acid Calcium Ferritin AST ALT Alkaline Phosphatase Lactate Dehydrogenase Troponin T C-Reactive Protein Total Protein Albumin HDL Cholesterol Arterial Blood Glucose Arterial Blood Ionized Calcium Urine WBC (Auto) 06/03/21 06/03/21 06/03/21 00:05 05:23 09:10 WBC RBC Hgb Hct MCV MCH MCHC RDW [place] # (Auto) Seg Neutrophils % Seg Neuts % (Manual) Lymphocytes % (Manual) Monocytes % (Manual) Seg Neutrophils # Seg Neutrophils # Man Lymphocytes # (Manual) Monocytes # (Manual) PT APTT D-Dimer Heparin Anti-Xa Level 0.84 H ABG pH POC ABG pCO2 POC ABG pO2 ABG pO2 ABG Hemoglobin ABG Oxyhemoglobin ABG Sodium ABG Potassium ABG Chloride ABG Glucose Carboxyhemoglobin Sodium Potassium Chloride Carbon Dioxide BUN Creatinine Glucose POC Glucose 268 H 170 H Lactic Acid Calcium Ferritin AST ALT Alkaline Phosphatase Lactate Dehydrogenase Troponin T C-Reactive Protein Total Protein Albumin HDL Cholesterol Arterial Blood Glucose Arterial Blood Ionized Calcium Urine WBC (Auto) 06/03/21 06/03/2121 12:06 20:22 23:30 WBC RBC Hgb Hct MCV MCH MCHC RDW [place] # (Auto) Seg Neutrophils % Seg Neuts % (Manual) Lymphocytes % (Manual) Monocytes % (Manual) Seg Neutrophils # Seg Neutrophils # Man Lymphocytes # (Manual) Monocytes # (Manual) PT APTT D-Dimer Heparin Anti-Xa Level ABG pH POC ABG pCO2 POC ABG pO2 ABG pO2 ABG Hemoglobin ABG Oxyhemoglobin ABG Sodium ABG Potassium ABG Chloride ABG Glucose Carboxyhemoglobin Sodium Potassium Chloride Carbon Dioxide BUN Creatinine Glucose POC Glucose 275 H 260 H 215 H Lactic Acid Calcium Ferritin AST ALT Alkaline Phosphatase Lactate Dehydrogenase Troponin T C-Reactive Protein Total Protein Albumin HDL Cholesterol Arterial Blood Glucose Arterial Blood Ionized Calcium Urine WBC (Auto) 06/04/21 06/04/21 06/04/21 05:03 05:57 05:57 WBC 17.8 H RBC 2.83 L Hgb 9.6 L Hct 28.4 L MCV 100 H MCH 34 H MCHC RDW 15.5 H [place] # (Auto) Seg Neutrophils % Seg Neuts % (Manual) 83.0 H Lymphocytes % (Manual) 4.0 L Monocytes % (Manual) Seg Neutrophils # Seg Neutrophils # Man 14.8 H Lymphocytes # (Manual) 0.7 L Monocytes # (Manual) 1.1 H PT APTT D-Dimer Heparin Anti-Xa Level ABG pH POC ABG pCO2 POC ABG pO2 ABG pO2 ABG Hemoglobin ABG Oxyhemoglobin ABG Sodium ABG Potassium ABG Chloride ABG Glucose Carboxyhemoglobin Sodium 135 L Potassium Chloride 96.3 L Carbon Dioxide BUN 51 H Creatinine Glucose 275 H POC Glucose 257 H Lactic Acid Calcium Ferritin AST ALT Alkaline Phosphatase Lactate Dehydrogenase Troponin T C-Reactive Protein Total Protein Albumin HDL Cholesterol Arterial Blood Glucose Arterial Blood Ionized Calcium Urine WBC (Auto) 06/04/21 06/04/21 06/04/21 09:48 11:08 17:33 WBC RBC Hgb Hct MCV MCH MCHC RDW [place] # (Auto) Seg Neutrophils % Seg Neuts % (Manual) Lymphocytes % (Manual) Monocytes % (Manual) Seg Neutrophils # Seg Neutrophils # Man Lymphocytes # (Manual) Monocytes # (Manual) PT APTT D-Dimer Heparin Anti-Xa Level ABG pH POC ABG pCO2 POC ABG pO2 ABG pO2 ABG Hemoglobin ABG Oxyhemoglobin ABG Sodium ABG Potassium ABG Chloride ABG Glucose Carboxyhemoglobin Sodium Potassium Chloride Carbon Dioxide BUN Creatinine Glucose POC Glucose 198 H 234 H 247 H Lactic Acid Calcium Ferritin AST ALT Alkaline Phosphatase Lactate Dehydrogenase Troponin T C-Reactive Protein Total Protein Albumin HDL Cholesterol Arterial Blood Glucose Arterial Blood Ionized Calcium Urine WBC (Auto) 06/04/21 06/05/21 06/05/21 23:30 05:38 11:24 WBC RBC Hgb Hct MCV MCH MCHC RDW [place] # (Auto) Seg Neutrophils % Seg Neuts % (Manual) Lymphocytes % (Manual) Monocytes % (Manual) Seg Neutrophils # Seg Neutrophils # Man Lymphocytes # (Manual) Monocytes # (Manual) PT APTT D-Dimer Heparin Anti-Xa Level ABG pH POC ABG pCO2 POC ABG pO2 ABG pO2 ABG Hemoglobin ABG Oxyhemoglobin ABG Sodium ABG Potassium ABG Chloride ABG Glucose Carboxyhemoglobin Sodium Potassium Chloride Carbon Dioxide BUN Creatinine Glucose POC Glucose 192 H 192 H 287 H Lactic Acid Calcium Ferritin AST ALT Alkaline Phosphatase Lactate Dehydrogenase Troponin T C-Reactive Protein Total Protein Albumin HDL Cholesterol Arterial Blood Glucose Arterial Blood Ionized Calcium Urine WBC (Auto) 06/05/21 06/05/21 06/05/21 12:20 12:20 12:20 WBC 16.2 H RBC 2.56 L Hgb 8.8 L Hct 25.2 L MCV 98 H MCH 35 H MCHC 35 H RDW 15.3 H [place] # (Auto) Seg Neutrophils % Seg Neuts % (Manual) Lymphocytes % (Manual) Monocytes % (Manual) Seg Neutrophils # Seg Neutrophils # Man Lymphocytes # (Manual) Monocytes # (Manual) PT APTT 72.2 H* D-Dimer Heparin Anti-Xa Level ABG pH POC ABG pCO2 POC ABG pO2 ABG pO2 ABG Hemoglobin ABG Oxyhemoglobin ABG Sodium ABG Potassium ABG Chloride ABG Glucose Carboxyhemoglobin Sodium 133 L Potassium Chloride 95.3 L Carbon Dioxide BUN 57 H Creatinine Glucose 313 H POC Glucose Lactic Acid Calcium Ferritin AST 90 H ALT 79 H Alkaline Phosphatase 262 H Lactate Dehydrogenase Troponin T C-Reactive Protein Total Protein Albumin 2.7 L HDL Cholesterol Arterial Blood Glucose Arterial Blood Ionized Calcium Urine WBC (Auto) 06/05/21 06/05/21 06/05/21 17:50 22:57 23:36 WBC RBC Hgb Hct MCV MCH MCHC RDW [place] # (Auto) Seg Neutrophils % Seg Neuts % (Manual) Lymphocytes % (Manual) Monocytes % (Manual) Seg Neutrophils # Seg Neutrophils # Man Lymphocytes # (Manual) Monocytes # (Manual) PT APTT D-Dimer Heparin Anti-Xa Level 0.28 L ABG pH POC ABG pCO2 POC ABG pO2 ABG pO2 ABG Hemoglobin ABG Oxyhemoglobin ABG Sodium ABG Potassium ABG Chloride ABG Glucose Carboxyhemoglobin Sodium Potassium Chloride Carbon Dioxide BUN Creatinine Glucose POC Glucose 275 H 223 H Lactic Acid Calcium Ferritin AST ALT Alkaline Phosphatase Lactate Dehydrogenase Troponin T C-Reactive Protein Total Protein Albumin HDL Cholesterol Arterial Blood Glucose Arterial Blood Ionized Calcium Urine WBC (Auto) 06/06/21 06/06/21 06/06/21 04:57 04:57 05:02 WBC 15.7 H RBC 2.77 L Hgb 9.4 L Hct 27.2 L MCV 98 H MCH 34 H MCHC RDW 15.4 H [place] # (Auto) Seg Neutrophils % Seg Neuts % (Manual) Lymphocytes % (Manual) Monocytes % (Manual) Seg Neutrophils # Seg Neutrophils # Man Lymphocytes # (Manual) Monocytes # (Manual) PT APTT D-Dimer Heparin Anti-Xa Level ABG pH POC ABG pCO2 POC ABG pO2 ABG pO2 ABG Hemoglobin ABG Oxyhemoglobin ABG Sodium ABG Potassium ABG Chloride ABG Glucose Carboxyhemoglobin Sodium Potassium 5.7 H Chloride Carbon Dioxide BUN 57 H Creatinine Glucose 245 H POC Glucose 217 H Lactic Acid Calcium Ferritin AST 99 H ALT 136 H Alkaline Phosphatase 312 H Lactate Dehydrogenase Troponin T C-Reactive Protein Total Protein 6.1 L Albumin 3.1 L HDL Cholesterol Arterial Blood Glucose Arterial Blood Ionized Calcium Urine WBC (Auto) 06/06/21 06/06/21 06/06/21 11:37 17:34 18:09 WBC RBC Hgb Hct MCV MCH MCHC RDW [place] # (Auto) Seg Neutrophils % Seg Neuts % (Manual) Lymphocytes % (Manual) Monocytes % (Manual) Seg Neutrophils # Seg Neutrophils # Man Lymphocytes # (Manual) Monocytes # (Manual) PT APTT D-Dimer Heparin Anti-Xa Level ABG pH POC ABG pCO2 POC ABG pO2 ABG pO2 ABG Hemoglobin ABG Oxyhemoglobin ABG Sodium ABG Potassium ABG Chloride ABG Glucose Carboxyhemoglobin Sodium Potassium 5.2 H Chloride Carbon Dioxide BUN 48 H Creatinine Glucose 245 H POC Glucose 251 H 217 H Lactic Acid Calcium Ferritin AST ALT Alkaline Phosphatase Lactate Dehydrogenase Troponin T C-Reactive Protein Total Protein Albumin HDL Cholesterol Arterial Blood Glucose Arterial Blood Ionized Calcium Urine WBC (Auto) 06/06/21 06/07/21 06/07/21 23:53 04:45 04:45 WBC 21.5 H RBC 2.71 L Hgb 9.0 L Hct 26.9 L MCV 99 H MCH 33 H MCHC RDW 15.3 H [place] # (Auto) Seg Neutrophils % Seg Neuts % (Manual) Lymphocytes % (Manual) Monocytes % (Manual) Seg Neutrophils # Seg Neutrophils # Man Lymphocytes # (Manual) Monocytes # (Manual) PT APTT D-Dimer Heparin Anti-Xa Level 0.10 L ABG pH POC ABG pCO2 POC ABG pO2 ABG pO2 ABG Hemoglobin ABG Oxyhemoglobin ABG Sodium ABG Potassium ABG Chloride ABG Glucose Carboxyhemoglobin Sodium Potassium Chloride Carbon Dioxide BUN Creatinine Glucose POC Glucose 224 H Lactic Acid Calcium Ferritin AST ALT Alkaline Phosphatase Lactate Dehydrogenase Troponin T C-Reactive Protein Total Protein Albumin HDL Cholesterol Arterial Blood Glucose Arterial Blood Ionized Calcium Urine WBC (Auto) 06/07/21 06/07/21 06/07/21 04:45 05:11 11:50 WBC RBC Hgb Hct MCV MCH MCHC RDW [place] # (Auto) Seg Neutrophils % Seg Neuts % (Manual) Lymphocytes % (Manual) Monocytes % (Manual) Seg Neutrophils # Seg Neutrophils # Man Lymphocytes # (Manual) Monocytes # (Manual) PT APTT D-Dimer Heparin Anti-Xa Level ABG pH POC ABG pCO2 POC ABG pO2 ABG pO2 ABG Hemoglobin ABG Oxyhemoglobin ABG Sodium ABG Potassium ABG Chloride ABG Glucose Carboxyhemoglobin Sodium Potassium 5.4 H Chloride Carbon Dioxide BUN 55 H Creatinine Glucose 178 H POC Glucose 156 H 118 H Lactic Acid Calcium Ferritin AST ALT Alkaline Phosphatase Lactate Dehydrogenase Troponin T C-Reactive Protein Total Protein Albumin HDL Cholesterol Arterial Blood Glucose Arterial Blood Ionized Calcium Urine WBC (Auto) 06/07/21 06/07/21 06/07/21 14:52 17:45 20:43 WBC RBC Hgb Hct MCV MCH MCHC RDW [place] # (Auto) Seg Neutrophils % Seg Neuts % (Manual) Lymphocytes % (Manual) Monocytes % (Manual) Seg Neutrophils # Seg Neutrophils # Man Lymphocytes # (Manual) Monocytes # (Manual) PT APTT D-Dimer Heparin Anti-Xa Level 0.73 H ABG pH POC ABG pCO2 POC ABG pO2 ABG pO2 ABG Hemoglobin ABG Oxyhemoglobin ABG Sodium ABG Potassium ABG Chloride ABG Glucose Carboxyhemoglobin Sodium Potassium Chloride Carbon Dioxide BUN Creatinine Glucose POC Glucose 164 H Lactic Acid Calcium Ferritin AST ALT Alkaline Phosphatase Lactate Dehydrogenase Troponin T C-Reactive Protein 28.90 H Total Protein Albumin HDL Cholesterol Arterial Blood Glucose Arterial Blood Ionized Calcium Urine WBC (Auto) 06/07/21 06/08/21 06/08/21 23:15 04:25 04:25 WBC 15.8 H RBC 2.58 L Hgb 8.6 L Hct 25.7 L MCV 100 H MCH 33 H MCHC RDW [place] # (Auto) Seg Neutrophils % Seg Neuts % (Manual) 76.0 H Lymphocytes % (Manual) 6.0 L Monocytes % (Manual) 8.0 H Seg Neutrophils # Seg Neutrophils # Man 12.0 H Lymphocytes # (Manual) 0.9 L Monocytes # (Manual) 1.3 H PT APTT D-Dimer Heparin Anti-Xa Level ABG pH POC ABG pCO2 POC ABG pO2 ABG pO2 ABG Hemoglobin ABG Oxyhemoglobin ABG Sodium ABG Potassium ABG Chloride ABG Glucose Carboxyhemoglobin Sodium Potassium Chloride Carbon Dioxide BUN 65 H Creatinine Glucose 205 H POC Glucose 236 H Lactic Acid Calcium Ferritin AST ALT Alkaline Phosphatase Lactate Dehydrogenase Troponin T C-Reactive Protein Total Protein Albumin HDL Cholesterol Arterial Blood Glucose Arterial Blood Ionized Calcium Urine WBC (Auto) 06/08/21 06/08/21 06/08/21 05:36 11:18 17:41 WBC RBC Hgb Hct MCV MCH MCHC RDW [place] # (Auto) Seg Neutrophils % Seg Neuts % (Manual) Lymphocytes % (Manual) Monocytes % (Manual) Seg Neutrophils # Seg Neutrophils # Man Lymphocytes # (Manual) Monocytes # (Manual) PT APTT D-Dimer Heparin Anti-Xa Level ABG pH POC ABG pCO2 POC ABG pO2 ABG pO2 ABG Hemoglobin ABG Oxyhemoglobin ABG Sodium ABG Potassium ABG Chloride ABG Glucose Carboxyhemoglobin Sodium Potassium Chloride Carbon Dioxide BUN Creatinine Glucose POC Glucose 185 H 203 H 173 H Lactic Acid Calcium Ferritin AST ALT Alkaline Phosphatase Lactate Dehydrogenase Troponin T C-Reactive Protein Total Protein Albumin HDL Cholesterol Arterial Blood Glucose Arterial Blood Ionized Calcium Urine WBC (Auto) 06/08/21 06/09/21 06/09/21 23:34 05:16 05:20 WBC 15.0 H RBC 2.54 L Hgb 8.5 L Hct 25.2 L MCV 99 H MCH 33 H MCHC RDW [place] # (Auto) Seg Neutrophils % Seg Neuts % (Manual) Lymphocytes % (Manual) Monocytes % (Manual) Seg Neutrophils # Seg Neutrophils # Man Lymphocytes # (Manual) Monocytes # (Manual) PT APTT D-Dimer Heparin Anti-Xa Level ABG pH POC ABG pCO2 POC ABG pO2 ABG pO2 ABG Hemoglobin ABG Oxyhemoglobin ABG Sodium ABG Potassium ABG Chloride ABG Glucose Carboxyhemoglobin Sodium Potassium Chloride Carbon Dioxide BUN Creatinine Glucose POC Glucose 200 H 154 H Lactic Acid Calcium Ferritin AST ALT Alkaline Phosphatase Lactate Dehydrogenase Troponin T C-Reactive Protein Total Protein Albumin HDL Cholesterol Arterial Blood Glucose Arterial Blood Ionized Calcium Urine WBC (Auto) 06/09/21 06/09/21 06/09/21 05:20 11:40 17:09 WBC RBC Hgb Hct MCV MCH MCHC RDW [place] # (Auto) Seg Neutrophils % Seg Neuts % (Manual) Lymphocytes % (Manual) Monocytes % (Manual) Seg Neutrophils # Seg Neutrophils # Man Lymphocytes # (Manual) Monocytes # (Manual) PT APTT D-Dimer Heparin Anti-Xa Level ABG pH POC ABG pCO2 POC ABG pO2 ABG pO2 ABG Hemoglobin ABG Oxyhemoglobin ABG Sodium ABG Potassium ABG Chloride ABG Glucose Carboxyhemoglobin Sodium Potassium 5.2 H Chloride Carbon Dioxide BUN 69 H Creatinine Glucose 163 H POC Glucose 232 H 137 H Lactic Acid Calcium Ferritin AST ALT Alkaline Phosphatase Lactate Dehydrogenase Troponin T C-Reactive Protein Total Protein Albumin HDL Cholesterol Arterial Blood Glucose Arterial Blood Ionized Calcium Urine WBC (Auto) 06/09/21 06/10/21 06/10/21 23:31 04:42 04:42 WBC 14.5 H RBC 2.41 L Hgb 8.2 L Hct 24.0 L MCV 100 H MCH 34 H MCHC RDW 15.8 H [place] # (Auto) Seg Neutrophils % Seg Neuts % (Manual) Lymphocytes % (Manual) Monocytes % (Manual) Seg Neutrophils # Seg Neutrophils # Man Lymphocytes # (Manual) Monocytes # (Manual) PT APTT D-Dimer Heparin Anti-Xa Level ABG pH POC ABG pCO2 POC ABG pO2 ABG pO2 ABG Hemoglobin ABG Oxyhemoglobin ABG Sodium ABG Potassium ABG Chloride ABG Glucose Carboxyhemoglobin Sodium 146 H D Potassium 3.4 L D Chloride Carbon Dioxide BUN 62 H Creatinine Glucose 174 H POC Glucose 162 H Lactic Acid Calcium Ferritin AST ALT Alkaline Phosphatase Lactate Dehydrogenase Troponin T C-Reactive Protein Total Protein Albumin HDL Cholesterol Arterial Blood Glucose Arterial Blood Ionized Calcium Urine WBC (Auto) 06/10/21 06/10/21 06/10/21 05:36 11:43 18:24 WBC RBC Hgb Hct MCV MCH MCHC RDW [place] # (Auto) Seg Neutrophils % Seg Neuts % (Manual) Lymphocytes % (Manual) Monocytes % (Manual) Seg Neutrophils # Seg Neutrophils # Man Lymphocytes # (Manual) Monocytes # (Manual) PT APTT D-Dimer Heparin Anti-Xa Level ABG pH POC ABG pCO2 POC ABG pO2 ABG pO2 ABG Hemoglobin ABG Oxyhemoglobin ABG Sodium ABG Potassium ABG Chloride ABG Glucose Carboxyhemoglobin Sodium Potassium Chloride Carbon Dioxide BUN Creatinine Glucose POC Glucose 149 H 183 H 139 H Lactic Acid Calcium Ferritin AST ALT Alkaline Phosphatase Lactate Dehydrogenase Troponin T C-Reactive Protein Total Protein Albumin HDL Cholesterol Arterial Blood Glucose Arterial Blood Ionized Calcium Urine WBC (Auto) 06/10/21 06/11/21 06/11/21 23:32 04:17 05:22 WBC RBC Hgb Hct MCV MCH MCHC RDW [place] # (Auto) Seg Neutrophils % Seg Neuts % (Manual) Lymphocytes % (Manual) Monocytes % (Manual) Seg Neutrophils # Seg Neutrophils # Man Lymphocytes # (Manual) Monocytes # (Manual) PT APTT D-Dimer Heparin Anti-Xa Level 0.84 H ABG pH POC ABG pCO2 POC ABG pO2 ABG pO2 ABG Hemoglobin ABG Oxyhemoglobin ABG Sodium ABG Potassium ABG Chloride ABG Glucose Carboxyhemoglobin Sodium Potassium Chloride Carbon Dioxide BUN Creatinine Glucose POC Glucose 149 H 138 H Lactic Acid Calcium Ferritin AST ALT Alkaline Phosphatase Lactate Dehydrogenase Troponin T C-Reactive Protein Total Protein Albumin HDL Cholesterol Arterial Blood Glucose Arterial Blood Ionized Calcium Urine WBC (Auto) 06/11/21 11:26 WBC RBC Hgb Hct MCV MCH MCHC RDW [place] # (Auto) Seg Neutrophils % Seg Neuts % (Manual) Lymphocytes % (Manual) Monocytes % (Manual) Seg Neutrophils # Seg Neutrophils # Man Lymphocytes # (Manual) Monocytes # (Manual) PT APTT D-Dimer Heparin Anti-Xa Level ABG pH POC ABG pCO2 POC ABG pO2 ABG pO2 ABG Hemoglobin ABG Oxyhemoglobin ABG Sodium ABG Potassium ABG Chloride ABG Glucose Carboxyhemoglobin Sodium Potassium Chloride Carbon Dioxide BUN Creatinine Glucose POC Glucose 198 H Lactic Acid Calcium Ferritin AST ALT Alkaline Phosphatase Lactate Dehydrogenase Troponin T C-Reactive Protein Total Protein Albumin HDL Cholesterol Arterial Blood Glucose Arterial Blood Ionized Calcium Urine WBC (Auto) Chest x-ray: pending Allied health notes reviewed: nursing
--- NOTE | 2021-06-11 16:22 | XRay Report ---
XR abdomen 1V ap INDICATION / CLINICAL INFORMATION: distension COMPARISON: 06/10/2021 FINDINGS/IMPRESSION: Nasogastric tube tip projects in the stomach with side port located at the GE junction. Consider slig ht advancement for more optimal placement. Small bowel is nondilated. Gas filled bowel loop in the r ight lower quadrant likely reflects colon. No free air. Signer Name: Tyrese Farfan MD Signed: 06/11/2021 4:18 PM Workstation Name: [id number]
[2021-06-11] MEDS ORDERED: POTASSIUM CHLORIDE 20 MEQ PACKET FEEDTUBE ONE (17:00)
[2021-06-11] MEDS ORDERED: MAGNESIUM CITRATE 300 ML ORAL LIQD PO ONE (18:30)
[2021-06-12] MEDS: INSULIN LISPRO 100 UNIT/ML SUB-Q SCH ×3 (00:05→12:40)
[2021-06-12] MEDS: METOCLOPRAMIDE 10 MG/2 ML INJ IV SCH ×3 (04:20→22:00)
[2021-06-12 05:33] LABS: Hematocrit 25.8 % (30.3-42.9); Hemoglobin 8.6 gm/dl (10.1-14.3); Mean Corpuscular HGB Conc 33 % (30-34); Mean Corpuscular Volume 100 fl (79-97); Platelet Count 309 K/mm3 (140-440); Red Blood Count 2.59 M/mm3 (3.65-5.03); Red Cell Distribution Width 15.3 % (13.2-15.2)
[2021-06-12 05:53] LABS: Albumin 3.2 g/dL (3.9-5)
[2021-06-12] MEDS: hydrALAZINE 25 MG TAB PO SCH (06:08)
[2021-06-12 06:15] LABS: Calcium 8.6 mg/dL (8.4-10.2)
[2021-06-12] MEDS: GLYCOPYRROLATE 2 MG TAB PO SCH (08:15)
[2021-06-12] MEDS ORDERED: WATER FOR IRRIG STERILE 1,000 ML BOTTLE ONE (10:37)
[2021-06-12] MEDS ORDERED: WATER FOR IRRIG STERILE 250 ML BOTTLE IR ONE (10:37)
[2021-06-12] MEDS ORDERED: LIDOCAINE 1%/EPINEPHRINE 1:100,000 VIAL (20 ML) INFILTRATI ONE ×2 (12:21→14:59)
--- NOTE | 2021-06-12 12:34 | Progress Note ---
<TOBIAS QUIROS - Last Filed: 06/12/21 12:24> Assessment and Plan Assessment and plan: 65-year-old female with PmHx of nonepileptic spells, PTSD, closed head injury, hypertension, diabetes, CAD, who came in s/p cardiac arrest Hospital Course to Date: 06/05/21- Patient remains ETT and on vent support. Off sedation with some improvement in neuro status, but is not following commands. Patient is tolerating SBT trial this am, still on the heparin gtt. AM labs is pending. Patient is still hyperglycemic, increased Qhs lantus. Continue supportive care. 06/06/21- Patient is intubated and on the vent. No longer on sedation, awake but unresponsive, tolerating SBT. Hyperglycemia this am, X1 dose of kayaxalate orderd. Persistent hyperglycemia, insulin adjusted. Continue to monitor elec trolytes, repeat BMP this afternoon and am labs ordered. 06/07/21- Patient remains intubated and on the vent. Neuro status is unchanged, spontaneously open yes but is not following commands. SBT trial again, plan to place back on a rate overnight. Leukocytosis noted from this morning lab, stat procalc and CRP ordered, d/w CCM no abx at this time. K 5.4 today, kayalalxate given. Continue to monitor leukocytosis and electrolytes. Am labs ordered 06/08/21- Patient remains intubated and on the vent with no significant change in her neuro status. Patient with no BM in 7days, abdominal soft with positive bowel sounds, colace added and PRN ducolax Supp PRN. Continue to monitor leukocytosis and electrolytes, am labs ordered. Plan for trach and PEG, surgery consulted. 06/09/21- Patient remains stable, intubated with no significant change in neuro status. Trach and Peg cancelled for today. Plan for possibly next week. Hyperkalemia again today, chart review for possible meds interaction. X1 dose of kayexalate ordered. Still no BM today. Episode of emesis today, TF held and NGT to LIS until tommorrow. Orders place for KUB today and Chest XR for the morning. Morning labs ordered. 06/10: Continue supportive care. Trach and PEG planned for early next week. KUB and x-ray with no significant change. Opacity still persist. Critical care management noted. Patient still persistent leukocytosis we will continue to monitor mild hypokalemia noted will replace with potassium. Also noted mild hypernatremia. Agree with holding tube feeds at this time 06/11: Discussed with nursing staff to change to history trickle feeds. Patient is planned for trach and PEG Saturday or Saturday. Continue current management also discussed to hold heparin drip for planned procedure with noted timeframe. We will recheck labs to ensure correction of electrolytes. 06/12/21- Patient's status is unchanged. No significant events overnight. Plan for trach and PEG today. TF and heparin gtt on hold. Continue supportive care. Continue to monitor electrolytes, am labs ordered. Assessment and Plan #Neuro: Metabolic encephalopathy post cardiac arrest #Seizure #Anoxic brain injury 2/ Hypoperfusion - 05/29 MRI brain is suggestive of water shed Infarct Bilateral -- mostly related to Hypoperfusion - 06/01 repeat MRI brain noted, possible subacute ischemic changes. - Per Neuro 05/29 EEG no sign of seizures - Patient is off sedation, open eyes spontaneously, pupils reactive, with +gag and cough. - Not following commands, no movement to stimuli - Continue Keppra and PRN ativan for seizure - Continue Supportive care #CV: s/p Cardiac Arrest #AFIB with RVR- resolved #Hypertension - Remains SR on the monitor - Normotensive - Continue antihypertensives: Labetalol, Hydralazine, valsartan, & Doxazosin - PRN hydralazine for SBP> 160 - Continue AC- Heparin gtt per protocol, on hold today due to possible procedure - Cardio is following #Resp.: Acute Hypoxemic Respitaroy Failure s/p cardiac Arrest #Bilateral Lower Lobe Infiltrates- improved - 05/25 ETT- Vent setting: PRVC- 30%,8,9,450 - 05/29 CXR- improved lung aeration - 06/10 CXR- unchanged small pleural parenchymal opacities - Patient is tolerating breathing trial, continue daily SBT - ABG per [facility] - Continue supplemental O2 for SPO2 goal>90% - D/w [facility] rec Trach and PEG- [facility] discussed plan with family - [facility] spoke with Patient's son- Plan for Trach and PEG today - Surgery on consult - Case management for LTACH placement #GI: Abdominal distention possibly due to Constipation #Vomitting- resolved #Transaminitis - last documented BM 06/10 - 06/03 KUB showed no sign. abnormality - 06/09 KUB- mild gaseous distention of cornelius colon but no definitive bowel obstruction - Bowel Regimen- senokot, Miralax, Colace, and PRN Ducolax supp - TF on hold today for possible Trach and PEG - LFTs downtrending, continue to trend LFTs - Continue PPI- pecid #: Hyperkalemia - 06/06 K 5.7; X1 dose of kayexalate via NGT - 06/08 K 4.5 today - 06/09 K 5.2- X1 dose of kayexalate - Purewick in placed - Continue strict I&Os - Continue to monitor renal function and electrolytes, am labs ordered #ID: Leukocytosis #Sepsis- resolved #Bilateral Lower Lobe Infiltrates- improved - 05/25 Bcultx2-neg; 05/25 Tracheal aspirate-neg; 05/25 Urine cult- neg - 05/29 CXR- improved lung aeration - WBCs trending down; 06/06 Wbcs 15.7 06/07 Wbcs 21.5 - Leukocytosis down trending 15.5 today - 06/07 CRP 28.90 and procal 0.36 - Afebrile TMAX 99.6, not on pressors - d/w CCM no abx at this time. - Continue to monitor- AM labs ordered #Endo: Hyperglycemia; H/o DM - Remains hyperglycemic - On high dose SSI Q6hrs - Continue Lantus QHS #DVT prophylaxis - SCDs to bilateral lower extremities while in bed - Continue AC- heparin gtt on hold today The high probability of a clinically significant, sudden or life threatening deterioration of the [neuro, Pulmo, GI, Endo] system(s) required my full and direct attention, intervention and personal management. The aggregate critical care time was [60] minutes. This time is in addition to time spent performing reported procedures but includes the following: [x] Data Review and interpretation [x] Patient assessment and monitoring of vital signs [x] Documentation [x] Medication orders and management Disposition Plan: ICU Total Time Spent with Patient (Minutes): 60 History Interval history: Patient seen and examined at the bedside. Remains on vent, awake and opening eyes spontaneously. No significant events overnight. Plan for trach and PEG today Hospitalist Physical - Constitutional Vitals: Temp Pulse Resp BP Pulse Ox 99.6 F 83 20 169/70 99 06/12/21 08:00 06/12/21 10:38 06/12/21 10:38 06/12/21 10:38 06/12/21 10:38 General appearance: Present: no acute distress - EENT Eyes: Present: PERRL - Respiratory Respiratory effort: normal Respiratory: bilateral: diminished - Cardiovascular Rhythm: regular Heart Sounds: Present: S1 & S2 - Extremities Extremities: pulses intact, pulses symmetrical Extremity abnormal: edema - Peripheral Assessment Generalized Edema Type: Non-pitting Edema Degree: 1+ Capillary Refill: < 3 seconds Skin Temperature: Warm Peripheral Pulses: within normal limits - Abdominal General gastrointestinal: non-tender, normal bowel sounds - Integumentary Integumentary: Present: clear, warm, dry - Psychiatric Psychiatric: other (Calm) - Neurologic Neurologic: other (BJ) - Allied Health Allied health notes reviewed: nursing HEART Score - HEART Score Troponin: Troponin T 0.226 ng/mL (0.00-0.029) H* D 05/25/21 15:19 Results - Labs CBC & Chem 7: 06/12/21 04:44 06/12/21 04:44 Labs: Laboratory Last Values WBC 15.5 K/mm3 (4.5-11.0) H 06/12/21 04:44 RBC 2.59 M/mm3 (3.65-5.03) L 06/12/21 04:44 Hgb 8.6 gm/dl (10.1-14.3) L 06/12/21 04:44 Hct 25.8 % (30.3-42.9) L 06/12/21 04:44 MCV 100 fl (79-97) H 06/12/21 04:44 MCH 33 pg (28-32) H 06/12/21 04:44 MCHC 33 % (30-34) 06/12/21 04:44 RDW 15.3 % (13.2-15.2) H 06/12/21 04:44 Plt Count 309 K/mm3 (140-440) 06/12/21 04:44 Lymph % (Auto) 14.3 % (13.4-35.0) 05/28/21 04:00 [place] % (Auto) 6.9 % (0.0-7.3) 05/28/21 04:00 Eos % (Auto) 0.1 % (0.0-4.3) 05/28/21 04:00 Baso % (Auto) 0.5 % (0.0-1.8) 05/28/21 04:00 Lymph # (Auto) 1.9 K/mm3 (1.2-5.4) 05/28/21 04:00 [place] # (Auto) 0.9 K/mm3 (0.0-0.8) H 05/28/21 04:00 Eos # (Auto) 0.0 K/mm3 (0.0-0.4) 05/28/21 04:00 Baso # (Auto) 0.1 K/mm3 (0.0-0.1) 05/28/21 04:00 Add Manual Diff Complete 06/08/21 04:25 Total Counted 100 06/08/21 04:25 Seg Neutrophils % 78.2 % (40.0-70.0) H 05/28/21 04:00 Seg Neuts % (Manual) 76.0 % (40.0-70.0) H 06/08/21 04:25 Band Neutrophils % 4.0 % 06/08/21 04:25 Lymphocytes % (Manual) 6.0 % (13.4-35.0) L 06/08/21 04:25 Monocytes % (Manual) 8.0 % (0.0-7.3) H 06/08/21 04:25 Eosinophils % (Manual) 1.0 % (0.0-4.3) 06/08/21 04:25 Metamyelocytes % 3.0 % 06/08/21 04:25 Myelocytes % 2.0 % 06/08/21 04:25 Nucleated RBC % Not Reportable 06/08/21 04:25 Seg Neutrophils # 10.6 K/mm3 (1.8-7.7) H 05/28/21 04:00 Seg Neutrophils # Man 12.0 K/mm3 (1.8-7.7) H 06/08/21 04:25 Band Neutrophils # 0.6 K/mm3 06/08/21 04:25 Lymphocytes # (Manual) 0.9 K/mm3 (1.2-5.4) L 06/08/21 04:25 Abs React Lymphs (Man) 0.0 K/mm3 06/08/21 04:25 Monocytes # (Manual) 1.3 K/mm3 (0.0-0.8) H 06/08/21 04:25 Eosinophils # (Manual) 0.2 K/mm3 (0.0-0.4) 06/08/21 04:25 Basophils # (Manual) 0.0 K/mm3 (0.0-0.1) 06/08/21 04:25 Metamyelocytes # 0.5 K/mm3 06/08/21 04:25 Myelocytes # 0.3 K/mm3 06/08/21 04:25 Promyelocytes # 0.0 K/mm3 06/08/21 04:25 Blast Cells # 0.0 K/mm3 06/08/21 04:25 WBC Morphology Not Reportable 06/08/21 04:25 Hypersegmented Neuts Not Reportable 06/08/21 04:25 Hyposegmented Neuts Not Reportable 06/08/21 04:25 Hypogranular Neuts Not Reportable 06/08/21 04:25 Smudge Cells Not Reportable 06/08/21 04:25 Toxic Granulation Not Reportable 06/08/21 04:25 Toxic Vacuolation Not Reportable 06/08/21 04:25 Dohle Bodies Not Reportable 06/08/21 04:25 Pelger-Huet Anomaly Not Reportable 06/08/21 04:25 Peter Rods Not Reportable 06/08/21 04:25 Platelet Estimate Consistent w auto 06/08/21 04:25 Clumped Platelets Not Reportable 06/08/21 04:25 Plt Clumps, EDTA Not Reportable 06/08/21 04:25 Large Platelets Not Reportable 06/08/21 04:25 Giant Platelets Not Reportable 06/08/21 04:25 Platelet Satelliting Not Reportable 06/08/21 04:25 Plt Morphology Comment Not Reportable 06/08/21 04:25 RBC Morphology Not Reportable 06/08/21 04:25 Dimorphic RBCs Not Reportable 06/08/21 04:25 Polychromasia Not Reportable 06/08/21 04:25 Hypochromasia Not Reportable 06/08/21 04:25 Poikilocytosis Not Reportable 06/08/21 04:25 Anisocytosis Not Reportable 06/08/21 04:25 Microcytosis Not Reportable 06/08/21 04:25 Macrocytosis Not Reportable 06/08/21 04:25 Spherocytes Not Reportable 06/08/21 04:25 Pappenheimer Bodies Not Reportable 06/08/21 04:25 Sickle Cells Not Reportable 06/08/21 04:25 Target Cells Not Reportable 06/08/21 04:25 Tear Drop Cells Not Reportable 06/08/21 04:25 Ovalocytes Not Reportable 06/08/21 04:25 Helmet Cells Not Reportable 06/08/21 04:25 [place] Bodies Not Reportable 06/08/21 04:25 [place] Rings Not Reportable 06/08/21 04:25 [place] Cells Not Reportable 06/08/21 04:25 Bite Cells Not Reportable 06/08/21 04:25 Crenated Cell Not Reportable 06/08/21 04:25 Elliptocytes Not Reportable 06/08/21 04:25 Acanthocytes (Spur) Not Reportable 06/08/21 04:25 Rouleaux Not Reportable 06/08/21 04:25 Hemoglobin C Crystals Not Reportable 06/08/21 04:25 Schistocytes Not Reportable 06/08/21 04:25 Malaria parasites Not Reportable 06/08/21 04:25 [place]ravan Bodies Not Reportable 06/08/21 04:25 Hem Pathologist Commnt No 06/08/21 04:25 PT 14.6 Sec. (12.2-14.9) 06/09/21 05:20 INR 1.09 (0.87-1.13) 06/09/21 05:20 APTT 72.2 Sec. (24.2-36.6) H* 06/05/21 12:20 D-Dimer > 23607 ng/mlDDU (0-234) H 05/25/21 09:21 Heparin Anti-Xa Level 0.69 U.I./ml (0.3-0.7) 06/12/21 04:44 ABG pH 7.481 (7.320-7.450) H 06/02/21 04:13 POC ABG pCO2 36.9 mmHg (32.0-48.0) 06/02/21 04:13 ABG pCO2 30.3 mm Hg 05/29/21 05:28 POC ABG pO2 80.0 mmHg (83-108) L 06/02/21 04:13 ABG pO2 96.2 mm Hg (80.0-90.0) H 05/29/21 05:28 POC ABG HCO3 26.9 06/02/21 04:13 ABG HCO3 24.0 mmol/L (20.0-26.0) 05/29/21 05:28 ABG O2 Saturation 95.7 (0-100) 06/02/21 04:13 ABG O2 Content 10.3 (0.0-44) 05/29/21 05:28 POC ABG Base Excess 3.4 06/02/21 04:13 ABG Base Excess 1.2 mmol/L (-2.0-3.0) 05/29/21 05:28 ABG Hemoglobin 11.1 (12.0-17.5) L 06/02/21 04:13 ABG Oxyhemoglobin 95.2 (94-98) 06/02/21 04:13 ABG Carboxyhemoglobin 1.6 % (0.0-5.0) 05/29/21 05:28 ABG Methemoglobin 0.3 (0.0-1.5) 06/02/21 04:13 ABG Sodium 131.9 mmol/L (136.0-145.0) L 06/02/21 04:13 ABG Potassium 3.8 mmol/L (3.40-4.50) 06/02/21 04:13 ABG Chloride 98.0 mmol/L (98-107) 06/02/21 04:13 ABG Glucose 231 mg/dL (65-95) H 06/02/21 04:13 Oxyhemoglobin 96.0 % (95.0-99.0) 05/29/21 05:28 Carboxyhemoglobin 0.2 (0.5-1.5) L 06/02/21 04:13 FiO2 30 % 05/29/21 05:28 FiO2 % 30.0 06/02/21 04:13 Sodium 145 mmol/L (137-145) 06/12/21 04:44 Sodium 148 mmol/L (137-145) H 06/12/21 04:44 Potassium 4.9 mmol/L (3.6-5.0) D 06/12/21 04:44 Potassium 5.0 mmol/L (3.6-5.0) 06/12/21 04:44 Chloride 102.2 mmol/L (98-107) 06/12/21 04:44 Chloride 104.9 mmol/L (98-107) 06/12/21 04:44 Carbon Dioxide 27 mmol/L (22-30) 06/12/21 04:44 Carbon Dioxide 28 mmol/L (22-30) 06/12/21 04:44 Anion Gap 20 mmol/L 06/12/21 04:44 Anion Gap 21 mmol/L 06/12/21 04:44 BUN 49 mg/dL (7-17) H 06/12/21 04:44 BUN 51 mg/dL (7-17) H 06/12/21 04:44 Creatinine 1.1 mg/dL (0.6-1.2) 06/12/21 04:44 Creatinine 1.2 mg/dL (0.6-1.2) 06/12/21 04:44 Estimated GFR 54 ml/min 06/12/21 04:44 Estimated GFR 60 ml/min 06/12/21 04:44 BUN/Creatinine Ratio 43 % 06/12/21 04:44 BUN/Creatinine Ratio 45 % 06/12/21 04:44 Glucose 222 mg/dL (65-100) H 06/12/21 04:44 Glucose 223 mg/dL (65-100) H 06/12/21 04:44 POC Glucose 185 mg/dL (70-105) H 06/12/21 11:21 Lactic Acid 2.30 mmol/L (0.7-2.0) H* 05/26/21 05:49 Calcium 8.6 mg/dL (8.4-10.2) 06/12/21 04:44 Calcium 9.0 mg/dL (8.4-10.2) 06/12/21 04:44 Magnesium 3.20 mg/dL (1.7-2.3) H 06/12/21 04:44 Ferritin 321.6 ng/mL (10.0-200.0) H 05/25/21 09:21 Total Bilirubin 0.50 mg/dL (0.1-1.2) 06/12/21 04:44 Direct Bilirubin < 0.2 mg/dL (0-0.2) 05/25/21 09:21 Indirect Bilirubin 0.2 mg/dL 05/25/21 09:21 AST 81 units/L (5-40) H 06/12/21 04:44 ALT 83 units/L (7-56) H 06/12/21 04:44 Alkaline Phosphatase 215 units/L (35-129) H 06/12/21 04:44 Lactate Dehydrogenase 445 units/L (91-180) H 05/25/21 09:21 Troponin T 0.226 ng/mL (0.00-0.029) H* D 05/25/21 15:19 C-Reactive Protein 28.90 mg/dL (0.00-1.30) H 06/07/21 14:52 NT-Pro-B Natriuret Pep 173.2 pg/mL (0-900) 05/25/21 09: Total Protein 7.4 g/dL (6.3-8.2) 06/12/21 04:44 Albumin 3.2 g/dL (3.9-5) L 06/12/21 04:44 Albumin/Globulin Ratio 0.8 % 06/12/21 04:44 Triglycerides 124 mg/dL (2-149) 05/30/21 11:19 Cholesterol 198 mg/dL (50-199) 05/25/21 15:19 LDL Cholesterol Direct 80 mg/dL (50-130) 05/25/21 15:19 HDL Cholesterol 64 mg/dL (40-59) H 05/25/21 15:19 Cholesterol/HDL Ratio 3.09 % 05/25/21 15:19 Procalcitonin 0.36 ng/mL (<0.15) 06/07/21 14:52 Arterial Blood Glucose 231 mg/dL (65-95) H 06/02/21 04:13 Arterial Blood Ionized Calcium 4.6 mg/dL (4.6-5.3) 06/02/21 04:13 Urine Color Straw (Yellow) 05/25/21 10:42 Urine Turbidity Clear (Clear) 05/25/21 10:42 Urine pH 6.0 (5.0-7.0) 05/25/21 10:42 Ur Specific [place] 1.007 (1.003-1.030) 05/25/21 10:42 Urine Protein 100 mg/dl mg/dL (Negative) 05/25/21 10:42 Urine Glucose (UA) >=500 mg/dL (Negative) 05/25/21 10:42 Urine Ketones Neg mg/dL (Negative) 05/25/21 10:42 Urine Blood Mod (Negative) 05/25/21 10:42 Urine Nitrite Neg (Negative) 05/25/21 10:42 Ur Reducing Substances Not Reportable 05/25/21 10:42 Urine Bilirubin Neg (Negative) 05/25/21 10:42 Urine Ictotest Not Reportable 05/25/21 10:42 Urine Urobilinogen < 2.0 mg/dL (<2.0) 05/25/21 10:42 Ur Leukocyte Esterase Neg (Negative) 05/25/21 10:42 Urine WBC (Auto) 11.0 /HPF (0.0-6.0) H 05/25/21 10:42 Urine RBC (Auto) 1.0 /HPF (0.0-6.0) 05/25/21 10:42 U Epithel Cells (Auto) < 1.0 /HPF (0-13.0) 05/25/21 10:42 Urine Bacteria (Auto) 4+ /HPF (Negative) 05/25/21 10:42 Urine Mucus Few /HPF 05/25/21 10:42 Coronavirus (PCR) Negative (Negative) 05/30/21 08:15 Blood Type O POSITIVE 05/25/21 14:07 Antibody Screen Negative 05/25/21 14:07 Tan/IV: Voiding Method External Female Catheter Active Medications - Current Medications Current Medications: Generic Name Dose Route Start Last Admin Trade Name Freq PRN Reason Stop Dose Admin Acetaminophen 650 mg 05/25/21 13:48 05/28/21 04:14 Acetaminophen 325 Mg Tab PO 650 mg Q6H PRN Administration Pain MILD(1-3)/Fever >100.5/SOTOMAYOR Lipase/Protease/Amylase 1 each 05/26/21 10:00 Lipase 10,500/Protease 25,000/Amylase 43,750 (Units) Dr Munguia FEEDTUBE PRN PRN For Clogged Feeding Tube Bisacodyl 10 mg 06/08/21 10:00 Bisacodyl 10 Mg Rect Supp MT QDAY PRN Constipation Dextrose 50 ml 05/28/21 14:28 Dextrose 50% In Water (25gm) 50 Ml Syringe IV Q30MIN PRN Hypoglycemia Protocol Docusate Sodium 100 mg 06/08/21 10:00 06/11/21 21:18 Docusate Sodium 100 Mg/10 Ml Oral Liqd PO 100 mg BID ABDIRAHMAN Administration Doxazosin Mesylate 2 mg 06/01/21 12:00 06/11/21 21:18 Doxazosin 1 Mg Tab PO 2 mg BID ABDIRAHMAN Administration Famotidine 20 mg 05/29/21 10:00 06/11/21 21:18 Famotidine 20 Mg Tab FEEDTUBE 20 mg BID ABDIRAHMAN Administration Glycopyrrolate 2 mg 06/01/21 09:00 06/12/21 08:15 Glycopyrrolate 2 Mg Tab PO Not Given TID [facility] Heparin Sodium (Porcine) 2,700 unit 05/25/21 13:41 05/30/21 17:46 Heparin 10,000 Units/10 Ml Vial 40 unit/kg (2700 unit) 2,520 unit IV Administration Q6H PRN Anti-Xa Assay < 0.1 units/ml Hydralazine HCl 10 mg 06/01/21 11:43 06/07/21 17:23 Hydralazine 20 Mg/1 Ml Inj IV 10 mg Q4HR PRN Administration SBP >160 Hydralazine HCl 50 mg 06/03/21 22:00 06/12/21 06:08 Hydralazine 25 Mg Tab PO 50 mg Q8HR [facility] Administration Hydrophilic Ointment 1 applic 05/25/21 19:04 Lip Therapy Vaseline TP Q2HR PRN Dry Lips Heparin Sodium/Sodium Chloride 25,000 unit in 500 mls @ 20 mls/hr 05/25/21 15:00 06/12/21 05:00 Heparin/ 0.45% Nacl-25,000 Unit/500 Ml IV 1,100 units/hr TITRATE ABDIRAHMAN 22 mls/hr Titration Protocol 1,000 UNITS/HR Insulin Glargine 25 units 06/09/21 22:00 06/11/21 09:40 Insulin Glargine 100 Units/Ml SUB-Q Not Given DAILY [facility] Insulin Human Lispro 0 unit 05/29/21 12:00 06/12/21 06:06 Insulin Lispro 100 Unit/Ml SUB-Q Not Given Q6HR [facility] Protocol Labetalol HCl 300 mg 06/03/21 13:40 06/11/21 21:19 Labetalol 100 Mg Tab PO 300 mg BID ABDIRAHMAN Administration Levetiracetam 250 mg 06/01/21 22:00 06/11/21 22:00 Levetiracetam 500 Mg/5 Ml Oral Liqd FEEDTUBE 250 mg Q12HR ABDIRAHMAN Administration Metoclopramide HCl 5 mg 06/09/21 16:00 06/12/21 04:20 Metoclopramide 10 Mg/2 Ml Inj IV 5 mg Q6H ABDIRAHMAN Administration Multi-Ingred Cream/Lotion/Oil/Oint 1 applic 05/25/21 19:04 Mineral Oil/Petrolatum, White Ophth Oint 3.5 Gm OU Q4HR PRN Dry Eye(s) Polyethylene Glycol 17 gm 06/05/21 11:00 06/11/21 09:27 Polyethylene Glycol 3350 17 Gm Powder PO 17 gm QDAY ABDIRAHMAN Administration Senna/Docusate Sodium 1 tab 05/25/21 22:00 06/11/21 21:18 Sennosides/Docusate Sodium 8.6/50 Mg Tab FEEDTUBE 1 tab BID ABDIRAHMAN Administration Simple Syrup 15 ml 05/26/21 10:00 Simple Syrup 15 Ml FEEDTUBE PRN PRN Hypoglycemia Simple Syrup 30 ml 05/26/21 10:00 Simple Syrup 15 Ml FEEDTUBE PRN PRN Hypoglycemia Sodium Bicarbonate 325 mg 05/26/21 10:00 Sodium Bicarbonate 325 Mg Tab FEEDTUBE PRN PRN For Clogged Feeding Tube Sodium Chloride 10 ml 05/25/21 22:00 06/11/21 21:22 Sodium Chloride 0.9% 10 Ml Flush Syringe IV 10 ml BID ABDIRAHMAN Administration Sodium Chloride 10 ml 05/25/21 13:48 06/04/21 03:57 Sodium Chloride 0.9% 10 Ml Flush Syringe IV 10 ml PRN PRN Administration LINE FLUSH Valsartan 160 mg 06/11/21 10:00 06/11/21 21:19 Valsartan 160mg Tab PO 160 mg BID ABDIRAHMAN Administration Nutrition/Malnutrition Assess - Dietary Evaluation Nutrition/Malnutrition Findings: Nutrition Notes Start: 05/26/21 0 9:00 Freq: Status: Active Protocol: Document 06/07/21 12:09 GB (Rec: 06/07/21 12:24 GB [email or web address]) Nutrition Notes Initial or Follow up Reassessment Current Diagnosis COPD,Diabetes,Sepsis, Hypertension,Respiratory Failure Other Pertinent Diagnosis cardiac arrest, seizure disorder Current Diet NPO, Tube feeding Vital 1.2 @ 50 Labs/Tests 06/07: K 5.4, BUN 55, (glucose 178 -showing improvement) Pertinent Medications NaCl, Na Polystyrene Sulfaonate Height 5 ft 4 in Weight 63 kg [place] Body Weight (kg) 54.54 BMI 23.8 Weight change and time frame -6.6% since admission Weight Status Appropriate Subjective/Other Information Ventilation continues, TF continues, Son(s) approved to visit today Percent of energy/protein needs met: TF goal rate meets 75% or greater of estimated energy needs Burn Absent Trauma Absent GI Symptoms None Food Allergy No Current % PO Other Minimum of two criteria No #1 Nutrition Diagnosis Inadequate oral intake Comments: 06/02: On vent. TF continues. 06/07: Ventilation continues, TF continues. Etiology ARF As Evidenced by Signs and Symptoms pt on vent and unable to consume PO Diagnosis Progress(for reassessment Continues documentation) Is patient on ventilator? Yes Is Patient Ambulatory and/or Out of Bed No REE-([facility]-confined to bed) 1385.676 Kcal/Kg value to use for calculation 23 Approximate Energy Requirements Using 1449 kcal/Kg Calculation Used for Recommendations Kcal/kg Additional Notes Protein: (1-1.5g/kg @63kg) 63- 95g Fluid: 1 ml/kcal or per Nutrition Intervention Change Diet Order: Continue NPO Nutrition Support: Vital AF 1.2 at 50 ml/hr Flush 75 ml q4h 06/02: continues 06/07: continues Kcal 1,440 Protein (gm) 90 Fat (gm) 65 Fluid (mL) 973 Goal #1 Meet 75% or greater of protein and energy needs via TF Follow-Up By: 06/14/21 Additional Comments son(s) approved to visit mom today. Pt trach/PEG <GABRIELLA VILLA - Last Filed: 06/13/21 08:15> Assessment and Plan Assessment and plan: I saw and evaluated the patient. I agree with the findings and the plan of care as documented in the Nurse Practitioner's~note, with the following corrections and additions. Hospitalist Physical - Constitutional Vitals: Temp Pulse Resp BP Pulse Ox 99.6 F 107 H 14 150/75 99 06/13/21 03:17 06/13/21 07:30 06/13/21 07:30 06/13/21 07:30 06/13/21 07:30 HEART Score - HEART Score Troponin: Troponin T 0.226 ng/mL (0.00-0.029) H* D 05/25/21 15:19 Results - Labs CBC & Chem 7: 06/13/21 04:34 06/13/21 04:34 Labs: Laboratory Last Values WBC 17.2 K/mm3 (4.5-11.0) H 06/13/21 04:34 RBC 2.56 M/mm3 (3.65-5.03) L 06/13/21 04:34 Hgb 8.6 gm/dl (10.1-14.3) L 06/13/21 04:34 Hct 26.1 % (30.3-42.9) L 06/13/21 04:34 MCV 102 fl (79-97) H 06/13/21 04:34 MCH 34 pg (28-32) H 06/13/21 04:34 MCHC 33 % (30-34) 06/13/21 04:34 RDW 14.9 % (13.2-15.2) 06/13/21 04:34 Plt Count 285 K/mm3 (140-440) 06/13/21 04:34 Lymph % (Auto) 14.3 % (13.4-35.0) 05/28/21 04:00 [place] % (Auto) 6.9 % (0.0-7.3) 05/28/21 04:00 Eos % (Auto) 0.1 % (0.0-4.3) 05/28/21 04:00 Baso % (Auto) 0.5 % (0.0-1.8) 05/28/21 04:00 Lymph # (Auto) 1.9 K/mm3 (1.2-5.4) 05/28/21 04:00 [place] # (Auto) 0.9 K/mm3 (0.0-0.8) H 05/28/21 04:00 Eos # (Auto) 0.0 K/mm3 (0.0-0.4) 05/28/21 04:00 Baso # (Auto) 0.1 K/mm3 (0.0-0.1) 05/28/21 04:00 Add Manual Diff Complete 06/08/21 04:25 Total Counted 100 06/08/21 04:25 Seg Neutrophils % 78.2 % (40.0-70.0) H 05/28/21 04:00 Seg Neuts % (Manual) 76.0 % (40.0-70.0) H 06/08/21 04:25 Band Neutrophils % 4.0 % 06/08/21 04:25 Lymphocytes % (Manual) 6.0 % (13.4-35.0) L 06/08/21 04:25 Monocytes % (Manual) 8.0 % (0.0-7.3) H 06/08/21 04:25 Eosinophils % (Manual) 1.0 % (0.0-4.3) 06/08/21 04:25 Metamyelocytes % 3.0 % 06/08/21 04:25 Myelocytes % 2.0 % 06/08/21 04:25 Nucleated RBC % Not Reportable 06/08/21 04:25 Seg Neutrophils # 10.6 K/mm3 (1.8-7.7) H 05/28/21 04:00 Seg Neutrophils # Man 12.0 K/mm3 (1.8-7.7) H 06/08/21 04:25 Band Neutrophils # 0.6 K/mm3 06/08/21 04:25 Lymphocytes # (Manual) 0.9 K/mm3 (1.2-5.4) L 06/08/21 04:25 Abs React Lymphs (Man) 0.0 K/mm3 06/08/21 04:25 Monocytes # (Manual) 1.3 K/mm3 (0.0-0.8) H 06/08/21 04:25 Eosinophils # (Manual) 0.2 K/mm3 (0.0-0.4) 06/08/21 04:25 Basophils # (Manual) 0.0 K/mm3 (0.0-0.1) 06/08/21 04:25 Metamyelocytes # 0.5 K/mm3 06/08/21 04:25 Myelocytes # 0.3 K/mm3 06/08/21 04:25 Promyelocytes # 0.0 K/mm3 06/08/21 04:25 Blast Cells # 0.0 K/mm3 06/08/21 04:25 WBC Morphology Not Reportable 06/08/21 04:25 Hypersegmented Neuts Not Reportable 06/08/21 04:25 Hyposegmented Neuts Not Reportable 06/08/21 04:25 Hypogranular Neuts Not Reportable 06/08/21 04:25 Smudge Cells Not Reportable 06/08/21 04:25 Toxic Granulation Not Reportable 06/08/21 04:25 Toxic Vacuolation Not Reportable 06/08/21 04:25 Dohle Bodies Not Reportable 06/08/21 04:25 Pelger-Huet Anomaly Not Reportable 06/08/21 04:25 Peter Rods Not Reportable 06/08/21 04:25 Platelet Estimate Consistent w auto 06/08/21 04:25 Clumped Platelets Not Reportable 06/08/21 04:25 Plt Clumps, EDTA Not Reportable 06/08/21 04:25 Large Platelets Not Reportable 06/08/21 04:25 Giant Platelets Not Reportable 06/08/21 04:25 Platelet Satelliting Not Reportable 06/08/21 04:25 Plt Morphology Comment Not Reportable 06/08/21 04:25 RBC Morphology Not Reportable 06/08/21 04:25 Dimorphic RBCs Not Reportable 06/08/21 04:25 Polychromasia Not Reportable 06/08/21 04:25 Hypochromasia Not Reportable 06/08/21 04:25 Poikilocytosis Not Reportable 06/08/21 04:25 Anisocytosis Not Reportable 06/08/21 04:25 Microcytosis Not Reportable 06/08/21 04:25 Macrocytosis Not Reportable 06/08/21 04:25 Spherocytes Not Reportable 06/08/21 04:25 Pappenheimer Bodies Not Reportable 06/08/21 04:25 Sickle Cells Not Reportable 06/08/21 04:25 Target Cells Not Reportable 06/08/21 04:25 Tear Drop Cells Not Reportable 06/08/21 04:25 Ovalocytes Not Reportable 06/08/21 04:25 Helmet Cells Not Reportable 06/08/21 04:25 Toribio-[place] Bodies Not Reportable 06/08/21 04:25 [place] Rings Not Reportable 06/08/21 04:25 Lin Cells Not Reportable 06/08/21 04:25 Bite Cells Not Reportable 06/08/21 04:25 Crenated Cell Not Reportable 06/08/21 04:25 Elliptocytes Not Reportable 06/08/21 04:25 Acanthocytes (Spur) Not Reportable 06/08/21 04:25 Rouleaux Not Reportable 06/08/21 04:25 Hemoglobin C Crystals Not Reportable 06/08/21 04:25 Schistocytes Not Reportable 06/08/21 04:25 Malaria parasites Not Reportable 06/08/21 04:25 Shravan Bodies Not Reportable 06/08/21 04:25 Hem Pathologist Commnt No 06/08/21 04:25 PT 14.6 Sec. (12.2-14.9) 06/09/21 05:20 INR 1.09 (0.87-1.13) 06/09/21 05:20 APTT 72.2 Sec. (24.2-36.6) H* 06/05/21 12:20 D-Dimer > 40285 ng/mlDDU (0-234) H 05/25/21 09:21 Heparin Anti-Xa Level 0.69 U.I./ml (0.3-0.7) 06/12/21 04:44 ABG pH 7.481 (7.320-7.450) H 06/02/21 04:13 POC ABG pCO2 36.9 mmHg (32.0-48.0) 06/02/21 04:13 ABG pCO2 30.3 mm Hg 05/29/21 05:28 POC ABG pO2 80.0 mmHg (83-108) L 06/02/21 04:13 ABG pO2 96.2 mm Hg (80.0-90.0) H 05/29/21 05:28 POC ABG HCO3 26.9 06/02/21 04:13 ABG HCO3 24.0 mmol/L (20.0-26.0) 05/29/21 05:28 ABG O2 Saturation 95.7 (0-100) 06/02/21 04:13 ABG O2 Content 10.3 (0.0-44) 05/29/21 05:28 POC ABG Base Excess 3.4 06/02/21 04:13 ABG Base Excess 1.2 mmol/L (-2.0-3.0) 05/29/21 05:28 ABG Hemoglobin 11.1 (12.0-17.5) L 06/02/21 04:13 ABG Oxyhemoglobin 95.2 (94-98) 06/02/21 04:13 ABG Carboxyhemoglobin 1.6 % (0.0-5.0) 05/29/21 05:28 ABG Methemoglobin 0.3 (0.0-1.5) 06/02/21 04:13 ABG Sodium 131.9 mmol/L (136.0-145.0) L 06/02/21 04:13 ABG Potassium 3.8 mmol/L (3.40-4.50) 06/02/21 04:13 ABG Chloride 98.0 mmol/L (98-107) 06/02/21 04:13 ABG Glucose 231 mg/dL (65-95) H 06/02/21 04:13 Oxyhemoglobin 96.0 % (95.0-99.0) 05/29/21 05:28 Carboxyhemoglobin 0.2 (0.5-1.5) L 06/02/21 04:13 FiO2 30 % 05/29/21 05:28 FiO2 % 30.0 06/02/21 04:13 Sodium 149 mmol/L (137-145) H 06/13/21 04:34 Potassium 5.1 mmol/L (3.6-5.0) H 06/13/21 04:34 Chloride 106.6 mmol/L (98-107) 06/13/21 04:34 Carbon Dioxide 23 mmol/L (22-30) 06/13/21 04:34 Anion Gap 25 mmol/L 06/13/21 04:34 BUN 52 mg/dL (7-17) H 06/13/21 04:34 Creatinine 1.6 mg/dL (0.6-1.2) H 06/13/21 04:34 Estimated GFR 39 ml/min 06/13/21 04:34 BUN/Creatinine Ratio 33 % 06/13/21 04:34 Glucose 231 mg/dL (65-100) H 06/13/21 04:34 POC Glucose 207 mg/dL (70-105) H 06/13/21 05:17 Lactic Acid 2.30 mmol/L (0.7-2.0) H* 05/26/21 05:49 Calcium 8.5 mg/dL (8.4-10.2) 06/13/21 04:34 Magnesium 3.20 mg/dL (1.7-2.3) H 06/12/21 04:44 Ferritin 321.6 ng/mL (10.0-200.0) H 05/25/21 09:21 Total Bilirubin 0.50 mg/dL (0.1-1.2) 06/13/21 04:34 Direct Bilirubin < 0.2 mg/dL (0-0.2) 05/25/21 09:21 Indirect Bilirubin 0.2 mg/dL 05/25/21 09:21 AST 69 units/L (5-40) H 06/13/21 04:34 ALT 74 units/L (7-56) H 06/13/21 04:34 Alkaline Phosphatase 197 units/L (35-129) H 06/13/21 04:34 Lactate Dehydrogenase 445 units/L (91-180) H 05/25/21 09:21 Troponin T 0.226 ng/mL (0.00-0.029) H* D 05/25/21 15:19 C-Reactive Protein 28.90 mg/dL (0.00-1.30) H 06/07/21 14:52 NT-Pro-B Natriuret Pep 173.2 pg/mL (0-900) 05/25/21 09:21 Total Protein 7.5 g/dL (6.3-8.2) 06/13/21 04:34 Albumin 3.0 g/dL (3.9-5) L 06/13/21 04:34 Albumin/Globulin Ratio 0.7 % 06/13/21 04:34 Triglycerides 124 mg/dL (2-149) 05/30/21 11:19 Cholesterol 198 mg/dL (50-199) 05/25/21 15:19 LDL Cholesterol Direct 80 mg/dL (50-130) 05/25/21 15:19 HDL Cholesterol 64 mg/dL (40-59) H 05/25/21 15:19 Cholesterol/HDL Ratio 3.09 % 05/25/21 15:19 Procalcitonin 0.36 ng/mL (<0.15) 06/07/21 14:52 Arterial Blood Glucose 231 mg/dL (65-95) H 06/02/21 04:13 Arterial Blood Ionized Calcium 4.6 mg/dL (4.6-5.3) 06/02/21 04:13 Urine Color Straw (Yellow) 05/25/21 10:42 Urine Turbidity Clear (Clear) 05/25/21 10:42 Urine pH 6.0 (5.0-7.0) 05/25/21 10:42 Ur Specific [place] 1.007 (1.003-1.030) 05/25/21 10:42 Urine Protein 100 mg/dl mg/dL (Negative) 05/25/21 10:42 Urine Glucose (UA) >=500 mg/dL (Negative) 05/25/21 10:42 Urine Ketones Neg mg/dL (Negative) 05/25/21 10:42 Urine Blood Mod (Negative) 05/25/21 10:42 Urine Nitrite Neg (Negative) 05/25/21 10:42 Ur Reducing Substances Not Reportable 05/25/21 10:42 Urine Bilirubin Neg (Negative) 05/25/21 10:42 Urine Ictotest Not Reportable 05/25/21 10:42 Urine Urobilinogen < 2.0 mg/dL (<2.0) 05/25/21 10:42 Ur Leukocyte Esterase Neg (Negative) 05/25/21 10:42 Urine WBC (Auto) 11.0 /HPF (0.0-6.0) H 05/25/21 10:42 Urine RBC (Auto) 1.0 /HPF (0.0-6.0) 05/25/21 10:42 U Epithel Cells (Auto) < 1.0 /HPF (0-13.0) 05/25/21 10:42 Urine Bacteria (Auto) 4+ /HPF (Negative) 05/25/21 10:42 Urine Mucus Few /HPF 05/25/21 10:42 Coronavirus (PCR) Negative (Negative) 05/30/21 08:15 Blood Type O POSITIVE 05/25/21 14:07 Antibody Screen Negative 05/25/21 14:07 Tan/IV: Voiding Method External Female Catheter Active Medications - Current Medications Current Medications: Generic Name Dose Route Start Last Admin Trade Name Freq PRN Reason Stop Dose Admin Acetaminophen 650 mg 05/25/21 13:48 05/28/21 04:14 Acetaminophen 325 Mg Tab PO 650 mg Q6H PRN Administration Pain MILD(1-3)/Fever >100.5/SOTOMAYOR Lipase/Protease/Amylase 1 each 05/26/21 10:00 Lipase 10,500/Protease 25,000/Amylase 43,750 (Units) Dr Munguia FEEDTUBE PRN PRN For Clogged Feeding Tube Bisacodyl 10 mg 06/08/21 10:00 Bisacodyl 10 Mg Rect Supp MT QDAY PRN Constipation Dextrose 50 ml 05/28/21 14:28 Dextrose 50% In Water (25gm) 50 Ml Syringe IV Q30MIN PRN Hypoglycemia Protocol Docusate Sodium 100 mg 06/08/21 10:00 06/12/21 21:24 Docusate Sodium 100 Mg/10 Ml Oral Liqd PO Not Given BID ABDIRAHMAN Doxazosin Mesylate 2 mg 06/01/21 12:00 06/12/21 21:23 Doxazosin 1 Mg Tab PO Not Given BID ABDIRAHMAN Famotidine 20 mg 05/29/21 10:00 06/12/21 21:26 Famotidine 20 Mg Tab FEEDTUBE Not Given BID ABDIRAHMAN Glycopyrrolate 2 mg 06/01/21 09:00 06/12/21 08:15 Glycopyrrolate 2 Mg Tab PO Not Given TID ABDIRAHMAN Heparin Sodium (Porcine) 2,700 unit 05/25/21 13:41 05/30/21 17:46 Heparin 10,000 Units/10 Ml Vial 40 unit/kg (2700 unit) 2,520 unit IV Administration Q6H PRN Anti-Xa Assay < 0.1 units/ml Hydralazine HCl 10 mg 06/01/21 11:43 06/07/21 17:23 Hydralazine 20 Mg/1 Ml Inj IV 10 mg Q4HR PRN Administration SBP >160 Hydralazine HCl 50 mg 06/03/21 22:00 06/12/21 06:08 Hydralazine 25 Mg Tab PO 50 mg Q8HR ABDIRAHMAN Administration Hydrophilic Ointment 1 applic 05/25/21 19:04 Lip Therapy Vaseline TP Q2HR PRN Dry Lips Heparin Sodium/Sodium Chloride 25,000 unit in 500 mls @ 20 mls/hr 05/25/21 15:00 06/12/21 07:20 Heparin/ 0.45% Nacl-25,000 Unit/500 Ml IV 0 units/hr TITRATE ABDIRAHMAN 0 mls/hr Titration Protocol 1,000 UNITS/HR Insulin Glargine 25 units 06/09/21 22:00 06/11/21 09:40 Insulin Glargine 100 Units/Ml SUB-Q Not Given DAILY ABDIRAHMAN Insulin Human Lispro 0 unit 05/29/21 12:00 06/13/21 06:06 Insulin Lispro 100 Unit/Ml SUB-Q Not Given Q6HR [facility] Protocol Labetalol HCl 300 mg 06/03/21 13:40 06/12/21 21:26 Labetalol 100 Mg Tab PO Not Given BID ABDIRAHMAN Levetiracetam 250 mg 06/01/21 22:00 06/12/21 21:25 Levetiracetam 500 Mg/5 Ml Oral Liqd FEEDTUBE Not Given Q12HR ABDIRAHMAN Metoclopramide HCl 5 mg 06/09/21 16:00 06/13/21 06:06 Metoclopramide 10 Mg/2 Ml Inj IV 5 mg Q6H ABDIRAHMAN Administration Multi-Ingred Cream/Lotion/Oil/Oint 1 applic 05/25/21 19:04 Mineral Oil/Petrolatum, White Ophth Oint 3.5 Gm OU Q4HR PRN Dry Eye(s) Polyethylene Glycol 17 gm 06/05/21 11:00 06/11/21 09:27 Polyethylene Glycol 3350 17 Gm Powder PO 17 gm QDAY ABDIRAHMAN Administration Senna/Docusate Sodium 1 tab 05/25/21 22:00 06/12/21 21:26 Sennosides/Docusate Sodium 8.6/50 Mg Tab FEEDTUBE Not Given BID ABDIRAHMAN Simple Syrup 15 ml 05/26/21 10:00 Simple Syrup 15 Ml FEEDTUBE PRN PRN Hypoglycemia Simple Syrup 30 ml 05/26/21 10:00 Simple Syrup 15 Ml FEEDTUBE PRN PRN Hypoglycemia Sodium Bicarbonate 325 mg 05/26/21 10:00 Sodium Bicarbonate 325 Mg Tab FEEDTUBE PRN PRN For Clogged Feeding Tube Sodium Chloride 10 ml 05/25/21 22:00 06/12/21 21:27 Sodium Chloride 0.9% 10 Ml Flush Syringe IV 10 ml BID ABDIRAHMAN Administration Sodium Chloride 10 ml 05/25/21 13:48 06/04/21 03:57 Sodium Chloride 0.9% 10 Ml Flush Syringe IV 10 ml PRN PRN Administration LINE FLUSH Valsartan 160 mg 06/11/21 10:00 06/12/21 21:24 Valsartan 160mg Tab PO Not Given BID ABDIRAHMAN Nutrition/Malnutrition Assess - Dietary Evaluation Nutrition/Malnutrition Findings: Nutrition Notes Start: 05/26/21 09:00 Freq: Status: Active Protocol: Document 06/07/21 12:09 GB (Rec: 06/07/21 12:24 GB [id number]) Nutrition Notes Initial or Follow up Reassessment Current Diagnosis COPD,Diabetes,Sepsis, Hypertension,Respiratory Failure Other Pertinent Diagnosis cardiac arrest, seizure disorder Current Diet NPO, Tube feeding Vital 1.2 @ 50 Labs/Tests 06/07: K 5.4, BUN 55, (glucose 178 -showing improvement) Pertinent Medications NaCl, Na Polystyrene Sulfaonate Height 5 ft 4 in Weight 63 kg [place] Body Weight (kg) 54.54 BMI 23.8 Weight change and time frame -6.6% since admission Weight Status Appropriate Subjective/Other Information Ventilation continues, TF continues, Son(s) approved to visit today Percent of energy/protein needs met: TF goal rate meets 75% or greater of estimated energy needs Burn Absent Trauma Absent GI Symptoms None Food Allergy No Current % PO Other Minimum of two criteria No #1 Nutrition Diagnosis Inadequate oral intake Comments: 06/02: On vent. TF continues. 06/07: Ventilation continues, TF continues. Etiology ARF As Evidenced by Signs and Symptoms pt on vent and unable to consume PO Diagnosis Progress(for reassessment Continues documentation) Is patient on ventilator? Yes Is Patient Ambulatory and/or Out of Bed No REE-([facility]-confined to bed) 1385.676 Kcal/Kg value to use for calculation 23 Approximate Energy Requirements Using 1449 kcal/Kg Calculation Used for Recommendations Kcal/kg Additional Notes Protein: (1-1.5g/kg @63kg) 63- 95g Fluid: 1 ml/kcal or per MD Nutrition Intervention Change Diet Order: Continue NPO Nutrition Support: Vital AF 1.2 at 50 ml/hr Flush 75 ml q4h 06/02: continues 06/07: continues Kcal 1,440 Protein (gm) 90 Fat (gm) 65 Fluid (mL) 973 Goal #1 Meet 75% or greater of protein and energy needs via TF Follow-Up By: 06/14/21 Additional Comments son(s) approved to visit mom today. Pt trach/PEG
--- NOTE | 2021-06-12 13:22 | Progress Note ---
Assessment and Plan Acute hypoxemic respiratory failure on MVS Cardiopulmonary arrest wtih ROSC Seizure disorder Sepsis Toxic metabolic encephalopathy, possible anoxia Atrial fibrillation with RVR Metabolic acidosis Bilateral lower lobe infiltrates - now s/p tracheostomy - repeat ABG in am - resume weaning in am - local wound care to trach site & other care as per surgeon - continue Reglan - azotemia per nephrology team - continue care as below otherwise; - daily SAT and SBT assessment as tolerated - continue to wean supplemental oxygen for target O2 sat's > 90% acutely - VAP bundle addressed - continue lung protective strategies - continue bronchodilators with pulmonary hygiene per RT - wean per pulmonary driven protocols otherwise - continue accuchecks with glycemic control per SSI (While critically ill target blood glucose of 140-180 mg/dL; avoid hypoglycemia) - sedation prn for target RASS 0 to -1 - avoid nephrotoxins, renally dose all medications - continue scopolamine for secretion control - continue Keppra as AED - continue to avoid benzodiazepine's, reduce the possibility of delirium - AB's per ID rec's - prn analgesia per CPOT score - Maintenance of sleep-wake cycle, avoid delirium - continue enteral nutritional support at goal rate as tolerated - G.I. & VTE prophylaxis - PT/OT/ROM exercises - continue mobility protocols for pressure ulcer prophylaxis - Monitor hemodynamics closely - continue other care per attending / other consultants - discharge planning ongoing concurrently COVID SPECIFIC INTERVENTIONS - COVID-19 PCR negative .... Re-evaluate in am & prn CONDITION: CRITICAL PROGNOSIS: GUARDED CODE STATUS: FULL CODE The high probability of a clinically significant, sudden or life-threatening deterioration of the [respiratory, cardiovascular & neurologic] system(s) required my full and direct attention, intervention and personal management. The aggregate critical care time was [34] minutes without overlap. Time includes spent on; [x] Data Review and interpretation [x] Patient assessment and monitoring of vital signs [x] Documentation [x] Medication orders and management Subjective Date of service: 06/12/21 Principal diagnosis: Ac hypoxemic resp failure; Cardiac arrest; Seizures; Sepsis; AMS; A-Fib RVR Interval history: Patient is seen today for: Acute hypoxemic respiratory failure; Cardiac arrest wtih ROSC; Seizure disorder; Sepsis; AMS; A-Fib with RVR Seen and examined at bedside; 24hour events reviewed; nursing and respiratory care staff consulted; no adverse overnight events reported to me; resting in bed; remains on MVS; for tracheostomy today; remains on MVS; no SBT's today; no gross bleeding Objective Vital Signs - 12hr 06/12/21 06/12/21 06/12/21 01:30 02:00 02:30 Temperature Pulse Rate 82 85 87 Pulse Rate [ From Monitor] Respiratory 33 H 32 H 29 H Rate Blood Pressure 156/65 153/62 149/60 O2 Sat by Pulse 99 95 99 Oximetry 06/12/21 06/12/21 06/12/21 03:00 03:10 03:30 Temperature Pulse Rate 81 76 76 Pulse Rate [ From Monitor] Respiratory 28 H 17 Rate Blood Pressure 145/65 149/60 131/49 O2 Sat by Pulse 100 99 98 Oximetry 06/12/21 06/12/21 06/12/21 04:00 04:01 04:30 Temperature 98.6 F Pulse Rate 94 H 80 85 Pulse Rate [ From Monitor] Respiratory 28 H 32 H Rate Blood Pressure 141/59 148/60 O2 Sat by Pulse 100 99 100 Oximetry 06/12/21 06/12/21 06/12/21 05:00 05:30 06:00 Temperature Pulse Rate 81 74 88 Pulse Rate [ From Monitor] Respiratory 14 12 11 L Rate Blood Pressure 159/70 151/61 170/82 O2 Sat by Pulse 99 99 100 Oximetry 06/12/21 06/12/21 06/12/21 06:08 06:30 07:00 Temperature Pulse Rate 80 78 83 Pulse Rate [ From Monitor] Respiratory 12 12 Rate Blood Pressure 170/82 158/67 171/78 O2 Sat by Pulse 100 100 Oximetry 06/12/21 06/12/21 06/12/21 07:30 08:00 08:30 Temperature 99.6 F Pulse Rate 82 90 85 Pulse Rate [ 79 From Monitor] Respiratory 12 11 L 12 Rate Blood Pressure 164/76 147/63 168/77 O2 Sat by Pulse 100 100 100 Oximetry 06/12/21 06/12/21 06/12/21 09:00 09:30 10:00 Temperature Pulse Rate 79 77 71 Pulse Rate [ From Monitor] Respiratory 12 12 12 Rate Blood Pressure 164/72 144/67 147/63 O2 Sat by Pulse 99 99 99 Oximetry 06/12/21 06/12/21 06/12/21 10:31 10:38 12:00 Temperature 98.4 F Pulse Rate 93 H 83 Pulse Rate [ From Monitor] Respiratory 12 20 Rate Blood Pressure 191/83 169/70 O2 Sat by Pulse 100 99 Oximetry Constitutional: no acute distress, other (elderly female with mildly increased respiratory effort at rest on MVS) Eyes: non-icteric ENT: oropharynx moist, other (+ midline tracheostomy) Neck: supple, no lymphadenopathy Effort: mildly labored Ascultation: Bilateral: diminished breath sounds, rhonchi Percussion: Bilateral: not dull Cardiovascular: regular rate and rhythm, other (S1,S2) Gastrointestinal: normoactive bowel sounds, soft, non-tender, other (+ PEG tube; distended but soft) Integumentary: normal Extremities: no cyanosis, pulses normal, no ischemia or petechiae, other (Right femoral CVL) Neurologic: pupils equal and round, unable to assess, other (encephalopathic) Psychiatric: other (unable to assess) CBC and BMP: 06/13/21 04:34 06/13/21 04:34 ABG, PT/INR, D-dimer: ABG ABG pH 7.481 (7.320-7.450) H 06/02/21 04:13 POC ABG pCO2 36.9 mmHg (32.0-48.0) 06/02/21 04:13 ABG pCO2 30.3 mm Hg 05/29/21 05:28 POC ABG pO2 80.0 mmHg (83-108) L 06/02/21 04:13 ABG pO2 96.2 mm Hg (80.0-90.0) H 05/29/21 05:28 POC ABG HCO3 26.9 06/02/21 04:13 ABG O2 Saturation 95.7 (0-100) 06/02/21 04:13 PT/INR, D-dimer PT 14.6 Sec. (12.2-14.9) 06/09/21 05:20 INR 1.09 (0.87-1.13) 06/09/21 05:20 D-Dimer > 46603 ng/mlDDU (0-234) H 05/25/21 09:21 Abnormal lab findings: Abnormal Labs 05/25/21 05/25/21 05/25/21 09:07 09: 09:21 WBC 17.1 H RBC Hgb Hct MCV 106 H MCH 33 H MCHC RDW 15.6 H Price # (Auto) Seg Neutrophils % Seg Neuts % (Manual) Lymphocytes % (Manual) Monocytes % (Manual) Seg Neutrophils # Seg Neutrophils # Man 10.1 H Lymphocytes # (Manual) 5.6 H Monocytes # (Manual) PT 15.0 H APTT 44.3 H D-Dimer > 01147 H Heparin Anti-Xa Level ABG pH 7.116 L POC ABG pCO2 POC ABG pO2 ABG pO2 ABG Hemoglobin ABG Oxyhemoglobin 93.7 L ABG Sodium ABG Potassium ABG Chloride ABG Glucose 395 H Carboxyhemoglobin Sodium Potassium Chloride Carbon Dioxide BUN Creatinine Glucose POC Glucose Lactic Acid Calcium Magnesium Ferritin AST ALT Alkaline Phosphatase Lactate Dehydrogenase Troponin T C-Reactive Protein Total Protein Albumin HDL Cholesterol Arterial Blood Glucose 395 H Arterial Blood Ionized Calcium 4.4 L Urine WBC (Auto) 05/25/21 05/25/21 05/25/21 09:21 09:21 09:21 WBC RBC Hgb Hct MCV MCH MCHC RDW Price # (Auto) Seg Neutrophils % Seg Neuts % (Manual) Lymphocytes % (Manual) Monocytes % (Manual) Seg Neutrophils # Seg Neutrophils # Man Lymphocytes # (Manual) Monocytes # (Manual) PT APTT D-Dimer Heparin Anti-Xa Level ABG pH POC ABG pCO2 POC ABG pO2 ABG pO2 ABG Hemoglobin ABG Oxyhemoglobin ABG Sodium ABG Potassium ABG Chloride ABG Glucose Carboxyhemoglobin Sodium Potassium Chloride Carbon Dioxide 10 L BUN Creatinine Glucose 423 H 424 H POC Glucose Lactic Acid Calcium 8.2 L Magnesium Ferritin 321.6 H AST 162 H ALT 119 H Alkaline Phosphatase Lactate Dehydrogenase 445 H Troponin T C-Reactive Protein Total Protein 5.6 L Albumin 3.2 L HDL Cholesterol Arterial Blood Glucose Arterial Blood Ionized Calcium Urine WBC (Auto) 05/25/21 05/25/21 05/25/21 09:35 10:42 11:12 WBC RBC Hgb Hct MCV MCH MCHC RDW Price # (Auto) Seg Neutrophils % Seg Neuts % (Manual) Lymphocytes % (Manual) Monocytes % (Manual) Seg Neutrophils # Seg Neutrophils # Man Lymphocytes # (Manual) Monocytes # (Manual) PT APTT D-Dimer Heparin Anti-Xa Level ABG pH POC ABG pCO2 POC ABG pO2 ABG pO2 ABG Hemoglobin ABG Oxyhemoglobin ABG Sodium ABG Potassium ABG Chloride ABG Glucose Carboxyhemoglobin Sodium Potassium Chloride Carbon Dioxide BUN Creatinine Glucose POC Glucose Lactic Acid 16.70 H* 7.70 H* Calcium Magnesium Ferritin AST ALT Alkaline Phosphatase Lactate Dehydrogenase Troponin T C-Reactive Protein Total Protein Albumin HDL Cholesterol Arterial Blood Glucose Arterial Blood Ionized Calcium Urine WBC (Auto) 11.0 H 05/25/21 05/25/21 05/25/21 14:07 15:19 19:04 WBC RBC Hgb Hct MCV MCH MCHC RDW Price # (Auto) Seg Neutrophils % Seg Neuts % (Manual) Lymphocytes % (Manual) Monocytes % (Manual) Seg Neutrophils # Seg Neutrophils # Man Lymphocytes # (Manual) Monocytes # (Manual) PT APTT D-Dimer Heparin Anti-Xa Level ABG pH POC ABG pCO2 POC ABG pO2 172.2 H ABG pO2 ABG Hemoglobin ABG Oxyhemoglobin 98.7 H ABG Sodium 135.7 L ABG Potassium ABG Chloride ABG Glucose 255 H Carboxyhemoglobin 0.3 L Sodium Potassium Chloride Carbon Dioxide BUN Creatinine Glucose POC Glucose Lactic Acid 3.90 H* Calcium Magnesium Ferritin AST ALT Alkaline Phosphatase Lactate Dehydrogenase Troponin T 0.226 H* D C-Reactive Protein Total Protein Albumin HDL Cholesterol 64 H Arterial Blood Glucose 255 H Arterial Blood Ionized Calcium 3.8 L Urine WBC (Auto) 05/25/21 05/25/21 05/26/21 21:16 21:16 04:00 WBC RBC Hgb Hct MCV MCH MCHC RDW Price # (Auto) Seg Neutrophils % Seg Neuts % (Manual) Lymphocytes % (Manual) Monocytes % (Manual) Seg Neutrophils # Seg Neutrophils # Man Lymphocytes # (Manual) Monocytes # (Manual) PT APTT D-Dimer Heparin Anti-Xa Level 1.19 H ABG pH 7.547 H POC ABG pCO2 POC ABG pO2 ABG pO2 ABG Hemoglobin 11.9 L ABG Oxyhemoglobin ABG Sodium 133.2 L ABG Potassium 3.1 L ABG Chloride ABG Glucose 243 H Carboxyhemoglobin 0.3 L Sodium Potassium Chloride Carbon Dioxide BUN Creatinine Glucose POC Glucose Lactic Acid 2.50 H* Calcium Magnesium Ferritin AST ALT Alkaline Phosphatase Lactate Dehydrogenase Troponin T C-Reactive Protein Total Protein Albumin HDL Cholesterol Arterial Blood Glucose 243 H Arterial Blood Ionized Calcium Urine WBC (Auto) 05/26/21 05/26/21 05/26/21 05:49 05:49 17:33 WBC RBC Hgb Hct MCV MCH MCHC RDW Price # (Auto) Seg Neutrophils % Seg Neuts % (Manual) Lymphocytes % (Manual) Monocytes % (Manual) Seg Neutrophils # Seg Neutrophils # Man Lymphocytes # (Manual) Monocytes # (Manual) PT APTT D-Dimer Heparin Anti-Xa Level ABG pH POC ABG pCO2 POC ABG pO2 ABG pO2 ABG Hemoglobin ABG Oxyhemoglobin ABG Sodium ABG Potassium ABG Chloride ABG Glucose Carboxyhemoglobin Sodium Potassium Chloride Carbon Dioxide BUN Creatinine Glucose 226 H POC Glucose 156 H Lactic Acid 2.30 H* Calcium 7.2 L Magnesium Ferritin AST 111 H ALT 97 H Alkaline Phosphatase Lactate Dehydrogenase Troponin T C-Reactive Protein Total Protein 5.4 L Albumin 3.3 L HDL Cholesterol Arterial Blood Glucose Arterial Blood Ionized Calcium Urine WBC (Auto) 05/27/21 05/27/21 05/27/21 02:11 02:11 02:11 WBC 14.3 H RBC 3.27 L Hgb Hct MCV 99 H MCH 33 H MCHC RDW 15.3 H Price # (Auto) 1.0 H Seg Neutrophils % Seg Neuts % (Manual) Lymphocytes % (Manual) Monocytes % (Manual) Seg Neutrophils # 10.0 H Seg Neutrophils # Man Lymphocytes # (Manual) Monocytes # (Manual) PT APTT D-Dimer Heparin Anti-Xa Level 0.80 H ABG pH POC ABG pCO2 POC ABG pO2 ABG pO2 ABG Hemoglobin ABG Oxyhemoglobin ABG Sodium ABG Potassium ABG Chloride ABG Glucose Carboxyhemoglobin Sodium Potassium 2.9 L* D Chloride Carbon Dioxide 31 H BUN 6 L Creatinine Glucose 215 H POC Glucose Lactic Acid Calcium 8.1 L Magnesium Ferritin AST ALT Alkaline Phosphatase Lactate Dehydrogenase Troponin T C-Reactive Protein Total Protein Albumin HDL Cholesterol Arterial Blood Glucose Arterial Blood Ionized Calcium Urine WBC (Auto) 05/27/21 05/27/21 05/27/21 11:24 12:49 18:06 WBC RBC Hgb Hct MCV MCH MCHC RDW Price # (Auto) Seg Neutrophils % Seg Neuts % (Manual) Lymphocytes % (Manual) Monocytes % (Manual) Seg Neutrophils # Seg Neutrophils # Man Lymphocytes # (Manual) Monocytes # (Manual) PT APTT D-Dimer Heparin Anti-Xa Level ABG pH POC ABG pCO2 POC ABG pO2 ABG pO2 ABG Hemoglobin ABG Oxyhemoglobin ABG Sodium ABG Potassium ABG Chloride ABG Glucose Carboxyhemoglobin Sodium Potassium Chloride Carbon Dioxide BUN Creatinine Glucose POC Glucose 151 H 165 H 137 H Lactic Acid Calcium Magnesium Ferritin AST ALT Alkaline Phosphatase Lactate Dehydrogenase Troponin T C-Reactive Protein Total Protein Albumin HDL Cholesterol Arterial Blood Glucose Arterial Blood Ionized Calcium Urine WBC (Auto) 05/28/21 05/28/21 05/28/21 04:00 04:00 06:02 WBC 13.5 H RBC 3.05 L Hgb Hct MCV 100 H MCH 34 H MCHC RDW Price # (Auto) 0.9 H Seg Neutrophils % 78.2 H Seg Neuts % (Manual) Lymphocytes % (Manual) Monocytes % (Manual) Seg Neutrophils # 10.6 H Seg Neutrophils # Man Lymphocytes # (Manual) Monocytes # (Manual) PT APTT D-Dimer Heparin Anti-Xa Level ABG pH 7.507 H POC ABG pCO2 POC ABG pO2 ABG pO2 ABG Hemoglobin 10.6 L ABG Oxyhemoglobin ABG Sodium 129.4 L ABG Potassium ABG Chloride ABG Glucose 243 H Carboxyhemoglobin 0.2 L Sodium 136 L D Potassium Chloride Carbon Dioxide BUN Creatinine Glucose 215 H POC Glucose Lactic Acid Calcium Magnesium Ferritin AST ALT Alkaline Phosphatase Lactate Dehydrogenase Troponin T C-Reactive Protein Total Protein Albumin HDL Cholesterol Arterial Blood Glucose 243 H Arterial Blood Ionized Calcium 4.1 L Urine WBC (Auto) 05/28/21 05/28/21 05/29/21 11:27 23:02 04:30 WBC RBC Hgb 9.3 L Hct 26.7 L MCV MCH MCHC RDW Price # (Auto) Seg Neutrophils % Seg Neuts % (Manual) Lymphocytes % (Manual) Monocytes % (Manual) Seg Neutrophils # Seg Neutrophils # Man Lymphocytes # (Manual) Monocytes # (Manual) PT APTT D-Dimer Heparin Anti-Xa Level ABG pH POC ABG pCO2 POC ABG pO2 ABG pO2 ABG Hemoglobin ABG Oxyhemoglobin ABG Sodium ABG Potassium ABG Chloride ABG Glucose Carboxyhemoglobin Sodium Potassium Chloride Carbon Dioxide BUN Creatinine Glucose POC Glucose 220 H 212 H Lactic Acid Calcium Magnesium Ferritin AST ALT Alkaline Phosphatase Lactate Dehydrogenase Troponin T C-Reactive Protein Total Protein Albumin HDL Cholesterol Arterial Blood Glucose Arterial Blood Ionized Calcium Urine WBC (Auto) 05/29/21 05/29/21 05/29/21 05:02 05:28 12:55 WBC RBC Hgb Hct MCV MCH MCHC RDW Price # (Auto) Seg Neutrophils % Seg Neuts % (Manual) Lymphocytes % (Manual) Monocytes % (Manual) Seg Neutrophils # Seg Neutrophils # Man Lymphocytes # (Manual) Monocytes # (Manual) PT APTT D-Dimer Heparin Anti-Xa Level ABG pH 7.516 H POC ABG pCO2 POC ABG pO2 ABG pO2 96.2 H ABG Hemoglobin 7.5 L ABG Oxyhemoglobin ABG Sodium ABG Potassium ABG Chloride ABG Glucose Carboxyhemoglobin Sodium Potassium Chloride Carbon Dioxide BUN Creatinine Glucose POC Glucose 197 H 251 H Lactic Acid Calcium Magnesium Ferritin AST ALT Alkaline Phosphatase Lactate Dehydrogenase Troponin T C-Reactive Protein Total Protein Albumin HDL Cholesterol Arterial Blood Glucose Arterial Blood Ionized Calcium Urine WBC (Auto) 05/29/21 05/29/21 05/30/21 18:23 23:31 04:10 WBC RBC Hgb Hct MCV MCH MCHC RDW Price # (Auto) Seg Neutrophils % Seg Neuts % (Manual) Lymphocytes % (Manual) Monocytes % (Manual) Seg Neutrophils # Seg Neutrophils # Man Lymphocytes # (Manual) Monocytes # (Manual) PT APTT D-Dimer Heparin Anti-Xa Level ABG pH 7.532 H POC ABG pCO2 30.0 L POC ABG pO2 78.5 L ABG pO2 ABG Hemoglobin 11.3 L ABG Oxyhemoglobin ABG Sodium 126.7 L ABG Potassium ABG Chloride 94.0 L ABG Glucose 270 H Carboxyhemoglobin 0.4 L Sodium Potassium Chloride Carbon Dioxide BUN Creatinine Glucose POC Glucose 236 H 252 H Lactic Acid Calcium Magnesium Ferritin AST ALT Alkaline Phosphatase Lactate Dehydrogenase Troponin T C-Reactive Protein Total Protein Albumin HDL Cholesterol Arterial Blood Glucose 270 H Arterial Blood Ionized Calcium 4.4 L Urine WBC (Auto) 05/30/21 05/30/21 05/30/21 05:06 06:23 11:15 WBC RBC Hgb Hct MCV MCH MCHC RDW Price # (Auto) Seg Neutrophils % Seg Neuts % (Manual) Lymphocytes % (Manual) Monocytes % (Manual) Seg Neutrophils # Seg Neutrophils # Man Lymphocytes # (Manual) Monocytes # (Manual) PT APTT D-Dimer Heparin Anti-Xa Level ABG pH POC ABG pCO2 POC ABG pO2 ABG pO2 ABG Hemoglobin ABG Oxyhemoglobin ABG Sodium ABG Potassium ABG Chloride ABG Glucose Carboxyhemoglobin Sodium 126 L D Potassium Chloride 91.9 L Carbon Dioxide 20 L D BUN Creatinine 0.4 L Glucose 274 H POC Glucose 242 H 346 H Lactic Acid Calcium Magnesium Ferritin AST ALT Alkaline Phosphatase Lactate Dehydrogenase Troponin T C-Reactive Protein Total Protein Albumin HDL Cholesterol Arterial Blood Glucose Arterial Blood Ionized Calcium Urine WBC (Auto) 05/30/21 05/30/21 05/30/21 11:19 11:19 11:19 WBC 18.9 H RBC 3.36 L Hgb Hct MCV 102 H MCH 33 H MCHC RDW 15.5 H Price # (Auto) Seg Neutrophils % Seg Neuts % (Manual) Lymphocytes % (Manual) Monocytes % (Manual) Seg Neutrophils # Seg Neutrophils # Man Lymphocytes # (Manual) Monocytes # (Manual) PT APTT D-Dimer Heparin Anti-Xa Level < 0.10 L ABG pH POC ABG pCO2 POC ABG pO2 ABG pO2 ABG Hemoglobin ABG Oxyhemoglobin ABG Sodium ABG Potassium ABG Chloride ABG Glucose Carboxyhemoglobin Sodium 124 L Potassium Chloride Carbon Dioxide BUN Creatinine Glucose POC Glucose Lactic Acid Calcium Magnesium Ferritin AST ALT Alkaline Phosphatase Lactate Dehydrogenase Troponin T C-Reactive Protein Total Protein Albumin HDL Cholesterol Arterial Blood Glucose Arterial Blood Ionized Calcium Urine WBC (Auto) 05/30/21 05/30/21 05/31/21 17:02 23:27 03:37 WBC RBC Hgb Hct MCV MCH MCHC RDW Price # (Auto) Seg Neutrophils % Seg Neuts % (Manual) Lymphocytes % (Manual) Monocytes % (Manual) Seg Neutrophils # Seg Neutrophils # Man Lymphocytes # (Manual) Monocytes # (Manual) PT APTT D-Dimer Heparin Anti-Xa Level ABG pH POC ABG pCO2 POC ABG pO2 ABG pO2 ABG Hemoglobin 11.6 L ABG Oxyhemoglobin ABG Sodium 130.0 L ABG Potassium ABG Chloride 95.0 L ABG Glucose 292 H Carboxyhemoglobin Sodium Potassium Chloride Carbon Dioxide BUN Creatinine Glucose POC Glucose 270 H 237 H Lactic Acid Calcium Magnesium Ferritin AST ALT Alkaline Phosphatase Lactate Dehydrogenase Troponin T C-Reactive Protein Total Protein Albumin HDL Cholesterol Arterial Blood Glucose 292 H Arterial Blood Ionized Calcium Urine WBC (Auto) 05/31/21 05/31/21 05/31/21 04:00 04:00 05:20 WBC 20.9 H RBC 3.13 L Hgb Hct MCV 99 H MCH 34 H MCHC RDW Price # (Auto) Seg Neutrophils % Seg Neuts % (Manual) 81.0 H Lymphocytes % (Manual) 8.0 L Monocytes % (Manual) 9.0 H Seg Neutrophils # Seg Neutrophils # Man 16.9 H Lymphocytes # (Manual) Monocytes # (Manual) 1.9 H PT APTT D-Dimer Heparin Anti-Xa Level ABG pH POC ABG pCO2 POC ABG pO2 ABG pO2 ABG Hemoglobin ABG Oxyhemoglobin ABG Sodium ABG Potassium ABG Chloride ABG Glucose Carboxyhemoglobin Sodium 133 L D Potassium Chloride 95.4 L Carbon Dioxide 21 L BUN 30 H Creatinine 0.5 L Glucose 305 H POC Glucose 269 H Lactic Acid Calcium Magnesium Ferritin AST ALT Alkaline Phosphatase Lactate Dehydrogenase Troponin T C-Reactive Protein Total Protein Albumin HDL Cholesterol Arterial Blood Glucose Arterial Blood Ionized Calcium Urine WBC (Auto) 05/31/21 05/31/21 05/31/21 11:40 18:16 23:25 WBC RBC Hgb Hct MCV MCH MCHC RDW Price # (Auto) Seg Neutrophils % Seg Neuts % (Manual) Lymphocytes % (Manual) Monocytes % (Manual) Seg Neutrophils # Seg Neutrophils # Man Lymphocytes # (Manual) Monocytes # (Manual) PT APTT D-Dimer Heparin Anti-Xa Level ABG pH POC ABG pCO2 POC ABG pO2 ABG pO2 ABG Hemoglobin ABG Oxyhemoglobin ABG Sodium ABG Potassium ABG Chloride ABG Glucose Carboxyhemoglobin Sodium Potassium Chloride Carbon Dioxide BUN Creatinine Glucose POC Glucose 364 H 250 H 231 H Lactic Acid Calcium Magnesium Ferritin AST ALT Alkaline Phosphatase Lactate Dehydrogenase Troponin T C-Reactive Protein Total Protein Albumin HDL Cholesterol Arterial Blood Glucose Arterial Blood Ionized Calcium Urine WBC (Auto) 06/01/21 06/01/21 06/01/21 04:03 04:58 04:58 WBC 20.7 H RBC 3.20 L Hgb Hct MCV 99 H MCH 34 H MCHC RDW Price # (Auto) Seg Neutrophils % Seg Neuts % (Manual) 82.0 H Lymphocytes % (Manual) 9.0 L Monocytes % (Manual) Seg Neutrophils # Seg Neutrophils # Man 17.0 H Lymphocytes # (Manual) Monocytes # (Manual) 1.4 H PT APTT D-Dimer Heparin Anti-Xa Level 1.18 H ABG pH 7.520 H POC ABG pCO2 POC ABG pO2 66.0 L ABG pO2 ABG Hemoglobin ABG Oxyhemoglobin 92.5 L ABG Sodium 133.6 L ABG Potassium ABG Chloride ABG Glucose 250 H Carboxyhemoglobin Sodium Potassium Chloride Carbon Dioxide BUN Creatinine Glucose POC Glucose Lactic Acid Calcium Magnesium Ferritin AST ALT Alkaline Phosphatase Lactate Dehydrogenase Troponin T C-Reactive Protein Total Protein Albumin HDL Cholesterol Arterial Blood Glucose 250 H Arterial Blood Ionized Calcium 4.4 L Urine WBC (Auto) 06/01/21 06/01/21 06/01/21 04:58 05:29 11:39 WBC RBC Hgb Hct MCV MCH MCHC RDW Price # (Auto) Seg Neutrophils % Seg Neuts % (Manual) Lymphocytes % (Manual) Monocytes % (Manual) Seg Neutrophils # Seg Neutrophils # Man Lymphocytes # (Manual) Monocytes # (Manual) PT APTT D-Dimer Heparin Anti-Xa Level ABG pH POC ABG pCO2 POC ABG pO2 ABG pO2 ABG Hemoglobin ABG Oxyhemoglobin ABG Sodium ABG Potassium ABG Chloride ABG Glucose Carboxyhemoglobin Sodium 131 L Potassium Chloride 95.7 L Carbon Dioxide BUN 30 H Creatinine 0.5 L Glucose 241 H POC Glucose 215 H 299 H Lactic Acid Calcium Magnesium Ferritin AST ALT Alkaline Phosphatase Lactate Dehydrogenase Troponin T C-Reactive Protein Total Protein Albumin HDL Cholesterol Arterial Blood Glucose Arterial Blood Ionized Calcium Urine WBC (Auto) 06/01/21 06/02/21 06/02/21 18:14 00:12 02:25 WBC 17.4 H RBC 3.09 L Hgb Hct MCV 101 H MCH 34 H MCHC RDW 15.5 H Price # (Auto) Seg Neutrophils % Seg Neuts % (Manual) Lymphocytes % (Manual) Monocytes % (Manual) Seg Neutrophils # Seg Neutrophils # Man Lymphocytes # (Manual) Monocytes # (Manual) PT APTT D-Dimer Heparin Anti-Xa Level ABG pH POC ABG pCO2 POC ABG pO2 ABG pO2 ABG Hemoglobin ABG Oxyhemoglobin ABG Sodium ABG Potassium ABG Chloride ABG Glucose Carboxyhemoglobin Sodium Potassium Chloride Carbon Dioxide BUN Creatinine Glucose POC Glucose 215 H 175 H Lactic Acid Calcium Magnesium Ferritin AST ALT Alkaline Phosphatase Lactate Dehydrogenase Troponin T C-Reactive Protein Total Protein Albumin HDL Cholesterol Arterial Blood Glucose Arterial Blood Ionized Calcium Urine WBC (Auto) 06/02/21 06/02/21 06/02/21 02:25 04:13 04:58 WBC RBC Hgb Hct MCV MCH MCHC RDW Price # (Auto) Seg Neutrophils % Seg Neuts % (Manual) Lymphocytes % (Manual) Monocytes % (Manual) Seg Neutrophils # Seg Neutrophils # Man Lymphocytes # (Manual) Monocytes # (Manual) PT APTT D-Dimer Heparin Anti-Xa Level ABG pH 7.481 H POC ABG pCO2 POC ABG pO2 80.0 L ABG pO2 ABG Hemoglobin 11.1 L ABG Oxyhemoglobin ABG Sodium 131.9 L ABG Potassium ABG Chloride ABG Glucose 231 H Carboxyhemoglobin 0.2 L Sodium 134 L Potassium Chloride 95.8 L Carbon Dioxide BUN 31 H Creatinine 0.5 L Glucose 168 H POC Glucose 230 H Lactic Acid Calcium Magnesium Ferritin AST ALT Alkaline Phosphatase Lactate Dehydrogenase Troponin T C-Reactive Protein Total Protein Albumin HDL Cholesterol Arterial Blood Glucose 231 H Arterial Blood Ionized Calcium Urine WBC (Auto) 06/02/21 06/02/21 06/02/21 11:27 17:47 23:53 WBC RBC Hgb Hct MCV MCH MCHC RDW Price # (Auto) Seg Neutrophils % Seg Neuts % (Manual) Lymphocytes % (Manual) Monocytes % (Manual) Seg Neutrophils # Seg Neutrophils # Man Lymphocytes # (Manual) Monocytes # (Manual) PT APTT D-Dimer Heparin Anti-Xa Level 0.80 H ABG pH POC ABG pCO2 POC ABG pO2 ABG pO2 ABG Hemoglobin ABG Oxyhemoglobin ABG Sodium ABG Potassium ABG Chloride ABG Glucose Carboxyhemoglobin Sodium Potassium Chloride Carbon Dioxide BUN Creatinine Glucose POC Glucose 259 H 297 H Lactic Acid Calcium Magnesium Ferritin AST ALT Alkaline Phosphatase Lactate Dehydrogenase Troponin T C-Reactive Protein Total Protein Albumin HDL Cholesterol Arterial Blood Glucose Arterial Blood Ionized Calcium Urine WBC (Auto) 06/03/21 06/03/21 06/03/21 00:05 05:23 09:10 WBC RBC Hgb Hct MCV MCH MCHC RDW Price # (Auto) Seg Neutrophils % Seg Neuts % (Manual) Lymphocytes % (Manual) Monocytes % (Manual) Seg Neutrophils # Seg Neutrophils # Man Lymphocytes # (Manual) Monocytes # (Manual) PT APTT D-Dimer Heparin Anti-Xa Level 0.84 H ABG pH POC ABG pCO2 POC ABG pO2 ABG pO2 ABG Hemoglobin ABG Oxyhemoglobin ABG Sodium ABG Potassium ABG Chloride ABG Glucose Carboxyhemoglobin Sodium Potassium Chloride Carbon Dioxide BUN Creatinine Glucose POC Glucose 268 H 170 H Lactic Acid Calcium Magnesium Ferritin AST ALT Alkaline Phosphatase Lactate Dehydrogenase Troponin T C-Reactive Protein Total Protein Albumin HDL Cholesterol Arterial Blood Glucose Arterial Blood Ionized Calcium Urine WBC (Auto) 06/03/21 06/03/21 06/03/21 12:06 20:22 23:30 WBC RBC Hgb Hct MCV MCH MCHC RDW Price # (Auto) Seg Neutrophils % Seg Neuts % (Manual) Lymphocytes % (Manual) Monocytes % (Manual) Seg Neutrophils # Seg Neutrophils # Man Lymphocytes # (Manual) Monocytes # (Manual) PT APTT D-Dimer Heparin Anti-Xa Level ABG pH POC ABG pCO2 POC ABG pO2 ABG pO2 ABG Hemoglobin ABG Oxyhemoglobin ABG Sodium ABG Potassium ABG Chloride ABG Glucose Carboxyhemoglobin Sodium Potassium Chloride Carbon Dioxide BUN Creatinine Glucose POC Glucose 275 H 260 H 215 H Lactic Acid Calcium Magnesium Ferritin AST ALT Alkaline Phosphatase Lactate Dehydrogenase Troponin T C-Reactive Protein Total Protein Albumin HDL Cholesterol Arterial Blood Glucose Arterial Blood Ionized Calcium Urine WBC (Auto) 06/04/21 06/04/21 06/04/21 05:03 05:57 05:57 WBC 17.8 H RBC 2.83 L Hgb 9.6 L Hct 28.4 L MCV 100 H MCH 34 H MCHC RDW 15.5 H Price # (Auto) Seg Neutrophils % Seg Neuts % (Manual) 83.0 H Lymphocytes % (Manual) 4.0 L Monocytes % (Manual) Seg Neutrophils # Seg Neutrophils # Man 14.8 H Lymphocytes # (Manual) 0.7 L Monocytes # (Manual) 1.1 H PT APTT D-Dimer Heparin Anti-Xa Level ABG pH POC ABG pCO2 POC ABG pO2 ABG pO2 ABG Hemoglobin ABG Oxyhemoglobin ABG Sodium ABG Potassium ABG Chloride ABG Glucose Carboxyhemoglobin Sodium 135 L Potassium Chloride 96.3 L Carbon Dioxide BUN 51 H Creatinine Glucose 275 H POC Glucose 257 H Lactic Acid Calcium Magnesium Ferritin AST ALT Alkaline Phosphatase Lactate Dehydrogenase Troponin T C-Reactive Protein Total Protein Albumin HDL Cholesterol Arterial Blood Glucose Arterial Blood Ionized Calcium Urine WBC (Auto) 06/04/21 06/04/21 06/04/21 09:48 11:08 17:33 WBC RBC Hgb Hct MCV MCH MCHC RDW Price # (Auto) Seg Neutrophils % Seg Neuts % (Manual) Lymphocytes % (Manual) Monocytes % (Manual) Seg Neutrophils # Seg Neutrophils # Man Lymphocytes # (Manual) Monocytes # (Manual) PT APTT D-Dimer Heparin Anti-Xa Level ABG pH POC ABG pCO2 POC ABG pO2 ABG pO2 ABG Hemoglobin ABG Oxyhemoglobin ABG Sodium ABG Potassium ABG Chloride ABG Glucose Carboxyhemoglobin Sodium Potassium Chloride Carbon Dioxide BUN Creatinine Glucose POC Glucose 198 H 234 H 247 H Lactic Acid Calcium Magnesium Ferritin AST ALT Alkaline Phosphatase Lactate Dehydrogenase Troponin T C-Reactive Protein Total Protein Albumin HDL Cholesterol Arterial Blood Glucose Arterial Blood Ionized Calcium Urine WBC (Auto) 06/04/21 06/05/21 06/05/21 23:30 05:38 11:24 WBC RBC Hgb Hct MCV MCH MCHC RDW Price # (Auto) Seg Neutrophils % Seg Neuts % (Manual) Lymphocytes % (Manual) Monocytes % (Manual) Seg Neutrophils # Seg Neutrophils # Man Lymphocytes # (Manual) Monocytes # (Manual) PT APTT D-Dimer Heparin Anti-Xa Level ABG pH POC ABG pCO2 POC ABG pO2 ABG pO2 ABG Hemoglobin ABG Oxyhemoglobin ABG Sodium ABG Potassium ABG Chloride ABG Glucose Carboxyhemoglobin Sodium Potassium Chloride Carbon Dioxide BUN Creatinine Glucose POC Glucose 192 H 192 H 287 H Lactic Acid Calcium Magnesium Ferritin AST ALT Alkaline Phosphatase Lactate Dehydrogenase Troponin T C-Reactive Protein Total Protein Albumin HDL Cholesterol Arterial Blood Glucose Arterial Blood Ionized Calcium Urine WBC (Auto) 06/05/21 06/05/21 06/05/21 12:20 12:20 12:20 WBC 16.2 H RBC 2.56 L Hgb 8.8 L Hct 25.2 L MCV 98 H MCH 35 H MCHC 35 H RDW 15.3 H Price # (Auto) Seg Neutrophils % Seg Neuts % (Manual) Lymphocytes % (Manual) Monocytes % (Manual) Seg Neutrophils # Seg Neutrophils # Man Lymphocytes # (Manual) Monocytes # (Manual) PT APTT 72.2 H* D-Dimer Heparin Anti-Xa Level ABG pH POC ABG pCO2 POC ABG pO2 ABG pO2 ABG Hemoglobin ABG Oxyhemoglobin ABG Sodium ABG Potassium ABG Chloride ABG Glucose Carboxyhemoglobin Sodium 133 L Potassium Chloride 95.3 L Carbon Dioxide BUN 57 H Creatinine Glucose 313 H POC Glucose Lactic Acid Calcium Magnesium Ferritin AST 90 H ALT 79 H Alkaline Phosphatase 262 H Lactate Dehydrogenase Troponin T C-Reactive Protein Total Protein Albumin 2.7 L HDL Cholesterol Arterial Blood Glucose Arterial Blood Ionized Calcium Urine WBC (Auto) 06/05/21 06/05/21 06/05/21 17:50 22:57 23:36 WBC RBC Hgb Hct MCV MCH MCHC RDW Price # (Auto) Seg Neutrophils % Seg Neuts % (Manual) Lymphocytes % (Manual) Monocytes % (Manual) Seg Neutrophils # Seg Neutrophils # Man Lymphocytes # (Manual) Monocytes # (Manual) PT APTT D-Dimer Heparin Anti-Xa Level 0.28 L ABG pH POC ABG pCO2 POC ABG pO2 ABG pO2 ABG Hemoglobin ABG Oxyhemoglobin ABG Sodium ABG Potassium ABG Chloride ABG Glucose Carboxyhemoglobin Sodium Potassium Chloride Carbon Dioxide BUN Creatinine Glucose POC Glucose 275 H 223 H Lactic Acid Calcium Magnesium Ferritin AST ALT Alkaline Phosphatase Lactate Dehydrogenase Troponin T C-Reactive Protein Total Protein Albumin HDL Cholesterol Arterial Blood Glucose Arterial Blood Ionized Calcium Urine WBC (Auto) 06/06/21 06/06/21 06/06/21 04:57 04:57 05:02 WBC 15.7 H RBC 2.77 L Hgb 9.4 L Hct 27.2 L MCV 98 H MCH 34 H MCHC RDW 15.4 H Price # (Auto) Seg Neutrophils % Seg Neuts % (Manual) Lymphocytes % (Manual) Monocytes % (Manual) Seg Neutrophils # Seg Neutrophils # Man Lymphocytes # (Manual) Monocytes # (Manual) PT APTT D-Dimer Heparin Anti-Xa Level ABG pH POC ABG pCO2 POC ABG pO2 ABG pO2 ABG Hemoglobin ABG Oxyhemoglobin ABG Sodium ABG Potassium ABG Chloride ABG Glucose Carboxyhemoglobin Sodium Potassium 5.7 H Chloride Carbon Dioxide BUN 57 H Creatinine Glucose 245 H POC Glucose 217 H Lactic Acid Calcium Magnesium Ferritin AST 99 H ALT 136 H Alkaline Phosphatase 312 H Lactate Dehydrogenase Troponin T C-Reactive Protein Total Protein 6.1 L Albumin 3.1 L HDL Cholesterol Arterial Blood Glucose Arterial Blood Ionized Calcium Urine WBC (Auto) 06/06/21 06/06/21 06/06/21 11:37 17:34 18:09 WBC RBC Hgb Hct MCV MCH MCHC RDW Price # (Auto) Seg Neutrophils % Seg Neuts % (Manual) Lymphocytes % (Manual) Monocytes % (Manual) Seg Neutrophils # Seg Neutrophils # Man Lymphocytes # (Manual) Monocytes # (Manual) PT APTT D-Dimer Heparin Anti-Xa Level ABG pH POC ABG pCO2 POC ABG pO2 ABG pO2 ABG Hemoglobin ABG Oxyhemoglobin ABG Sodium ABG Potassium ABG Chloride ABG Glucose Carboxyhemoglobin Sodium Potassium 5.2 H Chloride Carbon Dioxide BUN 48 H Creatinine Glucose 245 H POC Glucose 251 H 217 H Lactic Acid Calcium Magnesium Ferritin AST ALT Alkaline Phosphatase Lactate Dehydrogenase Troponin T C-Reactive Protein Total Protein Albumin HDL Cholesterol Arterial Blood Glucose Arterial Blood Ionized Calcium Urine WBC (Auto) 06/06/21 06/07/21 06/07/21 23:53 04:45 04:45 WBC 21.5 H RBC 2.71 L Hgb 9.0 L Hct 26.9 L MCV 99 H MCH 33 H MCHC RDW 15.3 H Price # (Auto) Seg Neutrophils % Seg Neuts % (Manual) Lymphocytes % (Manual) Monocytes % (Manual) Seg Neutrophils # Seg Neutrophils # Man Lymphocytes # (Manual) Monocytes # (Manual) PT APTT D-Dimer Heparin Anti-Xa Level 0.10 L ABG pH POC ABG pCO2 POC ABG pO2 ABG pO2 ABG Hemoglobin ABG Oxyhemoglobin ABG Sodium ABG Potassium ABG Chloride ABG Glucose Carboxyhemoglobin Sodium Potassium Chloride Carbon Dioxide BUN Creatinine Glucose POC Glucose 224 H Lactic Acid Calcium Magnesium Ferritin AST ALT Alkaline Phosphatase Lactate Dehydrogenase Troponin T C-Reactive Protein Total Protein Albumin HDL Cholesterol Arterial Blood Glucose Arterial Blood Ionized Calcium Urine WBC (Auto) 06/07/21 06/07/21 06/07/21 04:45 05:11 11:50 WBC RBC Hgb Hct MCV MCH MCHC RDW Price # (Auto) Seg Neutrophils % Seg Neuts % (Manual) Lymphocytes % (Manual) Monocytes % (Manual) Seg Neutrophils # Seg Neutrophils # Man Lymphocytes # (Manual) Monocytes # (Manual) PT APTT D-Dimer Heparin Anti-Xa Level ABG pH POC ABG pCO2 POC ABG pO2 ABG pO2 ABG Hemoglobin ABG Oxyhemoglobin ABG Sodium ABG Potassium ABG Chloride ABG Glucose Carboxyhemoglobin Sodium Potassium 5.4 H Chloride Carbon Dioxide BUN 55 H Creatinine Glucose 178 H POC Glucose 156 H 118 H Lactic Acid Calcium Magnesium Ferritin AST ALT Alkaline Phosphatase Lactate Dehydrogenase Troponin T C-Reactive Protein Total Protein Albumin HDL Cholesterol Arterial Blood Glucose Arterial Blood Ionized Calcium Urine WBC (Auto) 06/07/21 06/07/21 06/07/21 14:52 17:45 20:43 WBC RBC Hgb Hct MCV MCH MCHC RDW Price # (Auto) Seg Neutrophils % Seg Neuts % (Manual) Lymphocytes % (Manual) Monocytes % (Manual) Seg Neutrophils # Seg Neutrophils # Man Lymphocytes # (Manual) Monocytes # (Manual) PT APTT D-Dimer Heparin Anti-Xa Level 0.73 H ABG pH POC ABG pCO2 POC ABG pO2 ABG pO2 ABG Hemoglobin ABG Oxyhemoglobin ABG Sodium ABG Potassium ABG Chloride ABG Glucose Carboxyhemoglobin Sodium Potassium Chloride Carbon Dioxide BUN Creatinine Glucose POC Glucose 164 H Lactic Acid Calcium Magnesium Ferritin AST ALT Alkaline Phosphatase Lactate Dehydrogenase Troponin T C-Reactive Protein 28.90 H Total Protein Albumin HDL Cholesterol Arterial Blood Glucose Arterial Blood Ionized Calcium Urine WBC (Auto) 06/07/21 06/08/21 06/08/21 23:15 04:25 04:25 WBC 15.8 H RBC 2.58 L Hgb 8.6 L Hct 25.7 L MCV 100 H MCH 33 H MCHC RDW Price # (Auto) Seg Neutrophils % Seg Neuts % (Manual) 76.0 H Lymphocytes % (Manual) 6.0 L Monocytes % (Manual) 8.0 H Seg Neutrophils # Seg Neutrophils # Man 12.0 H Lymphocytes # (Manual) 0.9 L Monocytes # (Manual) 1.3 H PT APTT D-Dimer Heparin Anti-Xa Level ABG pH POC ABG pCO2 POC ABG pO2 ABG pO2 ABG Hemoglobin ABG Oxyhemoglobin ABG Sodium ABG Potassium ABG Chloride ABG Glucose Carboxyhemoglobin Sodium Potassium Chloride Carbon Dioxide BUN 65 H Creatinine Glucose 205 H POC Glucose 236 H Lactic Acid Calcium Magnesium Ferritin AST ALT Alkaline Phosphatase Lactate Dehydrogenase Troponin T C-Reactive Protein Total Protein Albumin HDL Cholesterol Arterial Blood Glucose Arterial Blood Ionized Calcium Urine WBC (Auto) 06/08/21 06/08/21 06/08/21 05:36 11:18 17:41 WBC RBC Hgb Hct MCV MCH MCHC RDW Price # (Auto) Seg Neutrophils % Seg Neuts % (Manual) Lymphocytes % (Manual) Monocytes % (Manual) Seg Neutrophils # Seg Neutrophils # Man Lymphocytes # (Manual) Monocytes # (Manual) PT APTT D-Dimer Heparin Anti-Xa Level ABG pH POC ABG pCO2 POC ABG pO2 ABG pO2 ABG Hemoglobin ABG Oxyhemoglobin ABG Sodium ABG Potassium ABG Chloride ABG Glucose Carboxyhemoglobin Sodium Potassium Chloride Carbon Dioxide BUN Creatinine Glucose POC Glucose 185 H 203 H 173 H Lactic Acid Calcium Magnesium Ferritin AST ALT Alkaline Phosphatase Lactate Dehydrogenase Troponin T C-Reactive Protein Total Protein Albumin HDL Cholesterol Arterial Blood Glucose Arterial Blood Ionized Calcium Urine WBC (Auto) 06/08/21 06/09/21 06/09/21 23:34 05:16 05:20 WBC 15.0 H RBC 2.54 L Hgb 8.5 L Hct 25.2 L MCV 99 H MCH 33 H MCHC RDW Price # (Auto) Seg Neutrophils % Seg Neuts % (Manual) Lymphocytes % (Manual) Monocytes % (Manual) Seg Neutrophils # Seg Neutrophils # Man Lymphocytes # (Manual) Monocytes # (Manual) PT APTT D-Dimer Heparin Anti-Xa Level ABG pH POC ABG pCO2 POC ABG pO2 ABG pO2 ABG Hemoglobin ABG Oxyhemoglobin ABG Sodium ABG Potassium ABG Chloride ABG Glucose Carboxyhemoglobin Sodium Potassium Chloride Carbon Dioxide BUN Creatinine Glucose POC Glucose 200 H 154 H Lactic Acid Calcium Magnesium Ferritin AST ALT Alkaline Phosphatase Lactate Dehydrogenase Troponin T C-Reactive Protein Total Protein Albumin HDL Cholesterol Arterial Blood Glucose Arterial Blood Ionized Calcium Urine WBC (Auto) 06/09/21 06/09/21 06/09/21 05:20 11:40 17:09 WBC RBC Hgb Hct MCV MCH MCHC RDW Price # (Auto) Seg Neutrophils % Seg Neuts % (Manual) Lymphocytes % (Manual) Monocytes % (Manual) Seg Neutrophils # Seg Neutrophils # Man Lymphocytes # (Manual) Monocytes # (Manual) PT APTT D-Dimer Heparin Anti-Xa Level ABG pH POC ABG pCO2 POC ABG pO2 ABG pO2 ABG Hemoglobin ABG Oxyhemoglobin ABG Sodium ABG Potassium ABG Chloride ABG Glucose Carboxyhemoglobin Sodium Potassium 5.2 H Chloride Carbon Dioxide BUN 69 H Creatinine Glucose 163 H POC Glucose 232 H 137 H Lactic Acid Calcium Magnesium Ferritin AST ALT Alkaline Phosphatase Lactate Dehydrogenase Troponin T C-Reactive Protein Total Protein Albumin HDL Cholesterol Arterial Blood Glucose Arterial Blood Ionized Calcium Urine WBC (Auto) 06/09/21 06/10/21 06/10/21 23:31 04:42 04:42 WBC 14.5 H RBC 2.41 L Hgb 8.2 L Hct 24.0 L MCV 100 H MCH 34 H MCHC RDW 15.8 H Price # (Auto) Seg Neutrophils % Seg Neuts % (Manual) Lymphocytes % (Manual) Monocytes % (Manual) Seg Neutrophils # Seg Neutrophils # Man Lymphocytes # (Manual) Monocytes # (Manual) PT APTT D-Dimer Heparin Anti-Xa Level ABG pH POC ABG pCO2 POC ABG pO2 ABG pO2 ABG Hemoglobin ABG Oxyhemoglobin ABG Sodium ABG Potassium ABG Chloride ABG Glucose Carboxyhemoglobin Sodium 146 H D Potassium 3.4 L D Chloride Carbon Dioxide BUN 62 H Creatinine Glucose 174 H POC Glucose 162 H Lactic Acid Calcium Magnesium Ferritin AST ALT Alkaline Phosphatase Lactate Dehydrogenase Troponin T C-Reactive Protein Total Protein Albumin HDL Cholesterol Arterial Blood Glucose Arterial Blood Ionized Calcium Urine WBC (Auto) 06/10/21 06/10/21 06/10/21 05:36 11:43 18:24 WBC RBC Hgb Hct MCV MCH MCHC RDW Price # (Auto) Seg Neutrophils % Seg Neuts % (Manual) Lymphocytes % (Manual) Monocytes % (Manual) Seg Neutrophils # Seg Neutrophils # Man Lymphocytes # (Manual) Monocytes # (Manual) PT APTT D-Dimer Heparin Anti-Xa Level ABG pH POC ABG pCO2 POC ABG pO2 ABG pO2 ABG Hemoglobin ABG Oxyhemoglobin ABG Sodium ABG Potassium ABG Chloride ABG Glucose Carboxyhemoglobin Sodium Potassium Chloride Carbon Dioxide BUN Creatinine Glucose POC Glucose 149 H 183 H 139 H Lactic Acid Calcium Magnesium Ferritin AST ALT Alkaline Phosphatase Lactate Dehydrogenase Troponin T C-Reactive Protein Total Protein Albumin HDL Cholesterol Arterial Blood Glucose Arterial Blood Ionized Calcium Urine WBC (Auto) 06/10/21 06/11/21 06/11/21 23:32 04:17 05:22 WBC RBC Hgb Hct MCV MCH MCHC RDW Price # (Auto) Seg Neutrophils % Seg Neuts % (Manual) Lymphocytes % (Manual) Monocytes % (Manual) Seg Neutrophils # Seg Neutrophils # Man Lymphocytes # (Manual) Monocytes # (Manual) PT APTT D-Dimer Heparin Anti-Xa Level 0.84 H ABG pH POC ABG pCO2 POC ABG pO2 ABG pO2 ABG Hemoglobin ABG Oxyhemoglobin ABG Sodium ABG Potassium ABG Chloride ABG Glucose Carboxyhemoglobin Sodium Potassium Chloride Carbon Dioxide BUN Creatinine Glucose POC Glucose 149 H 138 H Lactic Acid Calcium Magnesium Ferritin AST ALT Alkaline Phosphatase Lactate Dehydrogenase Troponin T C-Reactive Protein Total Protein Albumin HDL Cholesterol Arterial Blood Glucose Arterial Blood Ionized Calcium Urine WBC (Auto) 06/11/21 06/11/21 06/12/21 11:26 23:56 04:44 WBC 15.5 H RBC 2.59 L Hgb 8.6 L Hct 25.8 L MCV 100 H MCH 33 H MCHC RDW 15.3 H Price # (Auto) Seg Neutrophils % Seg Neuts % (Manual) Lymphocytes % (Manual) Monocytes % (Manual) Seg Neutrophils # Seg Neutrophils # Man Lymphocytes # (Manual) Monocytes # (Manual) PT APTT D-Dimer Heparin Anti-Xa Level ABG pH POC ABG pCO2 POC ABG pO2 ABG pO2 ABG Hemoglobin ABG Oxyhemoglobin ABG Sodium ABG Potassium ABG Chloride ABG Glucose Carboxyhemoglobin Sodium Potassium Chloride Carbon Dioxide BUN Creatinine Glucose POC Glucose 198 H 199 H Lactic Acid Calcium Magnesium Ferritin AST ALT Alkaline Phosphatase Lactate Dehydrogenase Troponin T C-Reactive Protein Total Protein Albumin HDL Cholesterol Arterial Blood Glucose Arterial Blood Ionized Calcium Urine WBC (Auto) 06/12/21 06/12/21 06/12/21 04:44 04:44 05:29 WBC RBC Hgb Hct MCV MCH MCHC RDW Price # (Auto) Seg Neutrophils % Seg Neuts % (Manual) Lymphocytes % (Manual) Monocytes % (Manual) Seg Neutrophils # Seg Neutrophils # Man Lymphocytes # (Manual) Monocytes # (Manual) PT APTT D-Dimer Heparin Anti-Xa Level ABG pH POC ABG pCO2 POC ABG pO2 ABG pO2 ABG Hemoglobin ABG Oxyhemoglobin ABG Sodium ABG Potassium ABG Chloride ABG Glucose Carboxyhemoglobin Sodium 148 H Potassium Chloride Carbon Dioxide BUN 49 H 51 H Creatinine Glucose 222 H 223 H POC Glucose 193 H Lactic Acid Calcium Magnesium 3.20 H Ferritin AST 81 H ALT 83 H Alkaline Phosphatase 215 H Lactate Dehydrogenase Troponin T C-Reactive Protein Total Protein Albumin 3.2 L HDL Cholesterol Arterial Blood Glucose Arterial Blood Ionized Calcium Urine WBC (Auto) 06/12/21 11:21 WBC RBC Hgb Hct MCV MCH MCHC RDW Price # (Auto) Seg Neutrophils % Seg Neuts % (Manual) Lymphocytes % (Manual) Monocytes % (Manual) Seg Neutrophils # Seg Neutrophils # Man Lymphocytes # (Manual) Monocytes # (Manual) PT APTT D-Dimer Heparin Anti-Xa Level ABG pH POC ABG pCO2 POC ABG pO2 ABG pO2 ABG Hemoglobin ABG Oxyhemoglobin ABG Sodium ABG Potassium ABG Chloride ABG Glucose Carboxyhemoglobin Sodium Potassium Chloride Carbon Dioxide BUN Creatinine Glucose POC Glucose 185 H Lactic Acid Calcium Magnesium Ferritin AST ALT Alkaline Phosphatase Lactate Dehydrogenase Troponin T C-Reactive Protein Total Protein Albumin HDL Cholesterol Arterial Blood Glucose Arterial Blood Ionized Calcium Urine WBC (Auto) Chest x-ray: pending Allied health notes reviewed: nursing
[2021-06-12] MEDS ORDERED: ceFAZolin 1 GM VIAL ONE (13:23)
[2021-06-12] MEDS ORDERED: ROCURONIUM 50 MG/5 ML INJ IV ONE (13:35)
[2021-06-12] MEDS ORDERED: ONDANSETRON 4 MG/2 ML INJ ONE (14:32)
--- NOTE | 2021-06-12 14:56 | Procedure Note ---
Date of procedure: 06/12/21 Pre-op diagnosis: Chronic respiratory failure Post-op diagnosis: same Procedure: 1) Open tracheostomy 2) PEG Description of procedure: Pt was placed supine on the OR table. GETA was administered. Bite block was placed between the pt's incisors. Endoscope was introduced into the pt's oropharynx and the esophagus intubated under direct vision. Scope was advanced into the stomach and the stomach maximally inflated. An appropriate location for PEG tube placement was selected. Skin and SQ tissue at this location were infiltrated with 5 ml of 1% Lidocaine. A small skin incision was made. Introducer needle was passed through this incision and into the stomach on the first pass. Guide wire was inserted into the stomach and the guide wire grasped with the snare. Scope and guide wire were removed via the oropharynx. PEG tubing was attached to the guide wire. External traction was applied to the guide wire via the LUQ until the internal bolster was snug up against the gastric and abdominal peck. The external bolster, clamp and PEG plug were placed. Repeat gastroscopy revealed the internal bolster to be in good position without bleeding from the gastric puncture site. External bolster final position was 4 cm at skin level. PEG exit site was dressed by the GI nurse. Pt's neck was then maximally extended in the midline. Neck was prepped and draped. A transverse collar incision was made 3 cm superior to the sternal notch. SQ tissue and platysma were divided with the Bovie. Deep cervical fascia was divided in the midline and the strap muscles dissected laterally. An "H" type incision was made in the 2nd tracheal ring. The endotracheal tube was slowly withdrawn to a position just above the tracheotomy. A #8 fenestrated, cuffed Shiley tracheostomy tube was inserted into the trachea without difficulty. Tracheostomy balloon was inflated. Deep cervical fascia and platysma were approximated with interrupted sutures of 3-0 Vicryl. Skin was approximated with interrupted, vertical mattress sutures of 3-0 Nylon. A slitted gauze was placed between the skin and the tracheostomy cuff. The tracheostomy cuff was secured about the neck with a Velcro strap. Pt tolerated both procedures well. Pt was taken immediately back to ICU in stable condition. Anesthesia: GETA Surgeon: HERMILA WILSON Estimated blood loss: minimal Pathology: none Condition: stable Disposition: ICU
[2021-06-12] MEDS ORDERED: SODIUM CHLORIDE 0.9% IRR 1,500 ML BOTTLE IR ONE (14:59)
--- NOTE | 2021-06-12 14:59 | Anesthesia Day of Surgery ---
Anesthesia Day of Surgery - Day of Surgery Patient Examined: Yes Patient H&P Reviewed: Yes Patient is NPO: Yes
--- NOTE | 2021-06-12 14:59 | Anesthesia Consultation ---
Anesthesia Consult and Med Hx Date of service: 06/12/21 - Airway Intubation Access Assessment: Possibly Difficult (oETT in situ) - Pre-Operative Health Status ASA Pre-Surgery Classification: ASA4 Proposed Anesthetic Plan: General - Pulmonary Hx Respiratory Symptoms: Yes (VDRF) - Cardiovascular System Hx Hypertension: Yes Hx Coronary Artery Disease: Yes (EF 60%) Hx Heart Attack/AMI: Yes (s/p stents; cardiac arrest prior to admission) Hx Percutaneous Transluminal Coronary Angioplasty (PTCA): Yes Hx Cardia Arrhythmia: Yes (a-fib) Hx Pacemaker: No Hx Internal Defibrillator: No Hx Valvular Heart Disease: Yes (mild MVP) - Central Nervous System Hx Neuromuscular Disorder: No (anoxic brain injury) Hx Seizures: Yes - Endocrine Hx Renal Disease: No Hx Liver Disease: No Hx Insulin Dependent Diabetes: Yes - Hematic Hx Anemia: Yes - Additional Comments Anesthesia Medical History Comments: Anesthetic plan discussed wih son/NOK and consent obtained.
--- NOTE | 2021-06-12 15:43 | Post Anesthesia Evaluation ---
- Post Anesthesia Evaluation Patient Participated: No (intubated) Airway Patent: Yes Stable Respiratory Function: Yes Nausea/Vomiting: No (unable to assess) Temp > 96.8F: Yes Pain Manageable: Yes (unable to assess) Adequeate Hydration: Yes Anesthesia Complications: No Patient on Ventilator: Yes Other Comments: Transport to ICU w/ monitors, AMBU. Handoff to RN at bedside.
[2021-06-12] MEDS: DOXAZOSIN 1 MG TAB PO SCH (21:23)
[2021-06-12] MEDS: DOCUSATE SODIUM 100 MG/10 ML ORAL LIQD PO SCH (21:24)
[2021-06-12] MEDS: VALSARTAN 160MG TAB PO SCH (21:24)
[2021-06-12] MEDS: levETIRAcetam 500 MG/5 ML ORAL LIQD FEEDTUBE SCH (21:25)
[2021-06-12] MEDS: FAMOTIDINE 20 MG TAB FEEDTUBE SCH (21:26)
[2021-06-12] MEDS: SENNOSIDES/DOCUSATE SODIUM 8.6/50 MG TAB FEEDTUBE SCH (21:26)
[2021-06-13 05:32] LABS: Hematocrit 26.1 % (30.3-42.9); Hemoglobin 8.6 gm/dl (10.1-14.3); Mean Corpuscular HGB Conc 33 % (30-34); Mean Corpuscular Volume 102 fl (79-97); Platelet Count 285 K/mm3 (140-440); Red Blood Count 2.56 M/mm3 (3.65-5.03); Red Cell Distribution Width 14.9 % (13.2-15.2)
[2021-06-13 06:02] LABS: Calcium 8.5 mg/dL (8.4-10.2)
[2021-06-13] MEDS: METOCLOPRAMIDE 10 MG/2 ML INJ IV SCH ×3 (06:06→22:20)
[2021-06-13] MEDS: INSULIN LISPRO 100 UNIT/ML SUB-Q SCH ×3 (06:06→13:09)
[2021-06-13] MEDS: VALSARTAN 160MG TAB PO SCH ×2 (10:05→21:55)
[2021-06-13] MEDS: FAMOTIDINE 20 MG TAB FEEDTUBE SCH ×2 (10:05→21:57)
[2021-06-13] MEDS: GLYCOPYRROLATE 2 MG TAB PO SCH ×3 (10:06→21:57)
[2021-06-13] MEDS: INSULIN GLARGINE 100 UNITS/ML SUB-Q SCH (10:06)
[2021-06-13] MEDS: levETIRAcetam 500 MG/5 ML ORAL LIQD FEEDTUBE SCH ×2 (10:06→23:00)
[2021-06-13] MEDS: DOXAZOSIN 1 MG TAB PO SCH ×2 (10:07→21:55)
[2021-06-13] MEDS ORDERED: SODIUM BICARBONATE 325 MG TAB FEEDTUBE PRN (10:48)
[2021-06-13] MEDS ORDERED: SIMPLE SYRUP 15 ML FEEDTUBE PRN ×2 (10:48)
[2021-06-13] MEDS ORDERED: LIPASE 10,500/PROTEASE 25,000/AMYLASE 43,750 (UNITS) DR CAP FEEDTUBE PRN (10:48)
[2021-06-13 11:33] LABS: Partial Thromboplastin Time 25.4 Sec. (24.2-36.6)
--- NOTE | 2021-06-13 12:21 | Progress Note ---
Assessment and Plan Acute hypoxemic respiratory failure on MVS Cardiopulmonary arrest wtih ROSC Seizure disorder Sepsis Toxic metabolic encephalopathy, possible anoxia Atrial fibrillation with RVR Metabolic acidosis Bilateral lower lobe infiltrates - continue SBT's as tolerated - LTAC evaluation is appropriate - continue local wound care to trach site & other care as per surgeon - continue full anticoagulation for A-fib - azotemia per nephrology team (non-oliguric) - continue care as below otherwise; - daily SAT and SBT assessment as tolerated - continue to wean supplemental oxygen for target O2 sat's > 90% acutely - VAP bundle addressed - continue lung protective strategies - continue bronchodilators with pulmonary hygiene per RT - wean per pulmonary driven protocols otherwise - continue accuchecks with glycemic control per SSI (While critically ill target blood glucose of 140-180 mg/dL; avoid hypoglycemia) - sedation prn for target RASS 0 to -1 - avoid nephrotoxins, renally dose all medications - continue scopolamine for secretion control - continue Keppra as AED - continue to avoid benzodiazepine's, reduce the possibility of delirium - AB's per ID rec's - prn analgesia per CPOT score - Maintenance of sleep-wake cycle, avoid delirium - continue enteral nutritional support at goal rate as tolerated - G.I. & VTE prophylaxis - PT/OT/ROM exercises - continue mobility protocols for pressure ulcer prophylaxis - Monitor hemodynamics closely - continue other care per attending / other consultants - discharge planning ongoing concurrently COVID SPECIFIC INTERVENTIONS - COVID-19 PCR negative .... Re-evaluate in am & prn CONDITION: CRITICAL PROGNOSIS: GUARDED CODE STATUS: FULL CODE The high probability of a clinically significant, sudden or life-threatening deterioration of the [respiratory, cardiovascular, renal & neurologic] system(s) required my full and direct attention, intervention and personal management. The aggregate critical care time was [37] minutes without overlap. Time includes spent on; [x] Data Review and interpretation [x] Patient assessment and monitoring of vital signs [x] Documentation [x] Medication orders and management Subjective Date of service: 06/13/21 Principal diagnosis: Ac hypoxemic resp failure; Cardiac arrest; Seizures; Sepsis; AMS; A-Fib RVR Interval history: Patient is seen today for: Acute hypoxemic respiratory failure; Cardiac arrest wtih ROSC; Seizure disorder; Sepsis; AMS; A-Fib with RVR Seen and examined at bedside; 24hour events reviewed; nursing and respiratory care staff consulted; no adverse overnight events reported to me; resting in bed; remains on MVS; on SBT and tolerating well; no gross bleeding; Hep assay sub-therapeutic and to receive bolus; no emesis or overt aspiration Objective Vital Signs - 12hr 06/13/21 06/13/21 06/13/21 00:30 01:00 01:30 Temperature Pulse Rate 102 H 106 H 105 H Pulse Rate [ From Monitor] Respiratory 12 17 14 Rate Blood Pressure 162/66 176/79 162/70 O2 Sat by Pulse 99 99 99 Oximetry O2 Sat by Pulse Oximetry [ Assessment] 06/13/21 06/13/21 06/13/21 02:00 02:30 03:00 Temperature Pulse Rate 104 H 101 H 99 H Pulse Rate [ From Monitor] Respiratory 14 13 12 Rate Blood Pressure 169/72 174/68 168/67 O2 Sat by Pulse 98 99 99 Oximetry O2 Sat by Pulse Oximetry [ Assessment] 06/13/21 06/13/21 06/13/21 03:17 03:30 03:57 Temperature 99.6 F Pulse Rate 109 H 111 H Pulse Rate [ From Monitor] Respiratory 15 Rate Blood Pressure 162/64 162/64 O2 Sat by Pulse 99 99 Oximetry O2 Sat by Pulse Oximetry [ Assessment] 06/13/21 06/13/21 06/13/21 04:00 04:30 05:00 Temperature Pulse Rate 112 H 109 H 104 H Pulse Rate [ 99 H From Monitor] Respiratory 12 15 13 Rate Blood Pressure 173/71 149/71 151/71 O2 Sat by Pulse 100 99 99 Oximetry O2 Sat by Pulse Oximetry [ Assessment] 06/13/21 06/13/21 06/13/21 05:30 06:00 06:30 Temperature Pulse Rate 109 H 108 H 104 H Pulse Rate [ From Monitor] Respiratory 13 12 12 Rate Blood Pressure 162/79 163/76 137/61 O2 Sat by Pulse 99 98 99 Oximetry O2 Sat by Pulse Oximetry [ Assessment] 06/13/21 06/13/21 06/13/21 07:00 07:30 08:00 Temperature 98.9 F Pulse Rate 109 H 107 H Pulse Rate [ From Monitor] Respiratory 13 14 Rate Blood Pressure 124/67 150/75 O2 Sat by Pulse 99 99 Oximetry O2 Sat by Pulse Oximetry [ Assessment] 06/13/21 06/13/21 06/13/21 09:00 09:20 10:05 Temperature Pulse Rate 108 H 112 H 110 H Pulse Rate [ From Monitor] Respiratory Rate Blood Pressure 165/77 165/77 171/82 O2 Sat by Pulse 98 98 Oximetry O2 Sat by Pulse 97 Oximetry [ Assessment] 06/13/21 06/13/21 10:07 11:44 Temperature Pulse Rate 111 H 79 Pulse Rate [ From Monitor] Respiratory 13 Rate Blood Pressure 172/81 130/62 O2 Sat by Pulse 99 Oximetry O2 Sat by Pulse Oximetry [ Assessment] Constitutional: appears uncomfortable, other (elderly female with mildly increased respiratory effort at rest on MVS) Eyes: non-icteric ENT: oropharynx moist, other (+ midline tracheostomy with mild secretions) Neck: supple, no lymphadenopathy Effort: mildly labored Ascultation: Bilateral: diminished breath sounds, rhonchi (scant) Percussion: Bilateral: not dull Cardiovascular: regular rate and rhythm, other (S1,S2) Gastrointestinal: normoactive bowel sounds, soft, non-tender, non-distended (protuberant), other (+ PEG tube) Integumentary: normal Extremities: no cyanosis, pulses normal, no ischemia or petechiae, other (Right femoral CVL) Neurologic: pupils equal and round, unable to assess, other (encephalopathic) Psychiatric: other (unable to assess) CBC and BMP: 06/13/21 04:34 06/13/21 04:34 ABG, PT/INR, D-dimer: ABG ABG pH 7.481 (7.320-7.450) H 06/02/21 04:13 POC ABG pCO2 36.9 mmHg (32.0-48.0) 06/02/21 04:13 ABG pCO2 30.3 mm Hg 05/29/21 05:28 POC ABG pO2 80.0 mmHg (83-108) L 06/02/21 04:13 ABG pO2 96.2 mm Hg (80.0-90.0) H 05/29/21 05:28 POC ABG HCO3 26.9 06/02/21 04:13 ABG O2 Saturation 95.7 (0-100) 06/02/21 04:13 PT/INR, D-dimer PT 14.6 Sec. (12.2-14.9) 10/01/21 05:20 INR 1.09 (0.87-1.13) 06/09/21 05:20 D-Dimer > 42785 ng/mlDDU (0-234) H 05/25/21 09:21 Abnormal lab findings: Abnormal Labs 05/25/21 05/25/21 05/25/21 09:07 09:21 09:21 WBC 17.1 H RBC Hgb Hct MCV 106 H MCH 33 H MCHC RDW 15.6 H [facility] # (Auto) Seg Neutrophils % Seg Neuts % (Manual) Lymphocytes % (Manual) Monocytes % (Manual) Seg Neutrophils # Seg Neutrophils # Man 10.1 H Lymphocytes # (Manual) 5.6 H Monocytes # (Manual) PT 15.0 H APTT 44.3 H D-Dimer > 17807 H Heparin Anti-Xa Level ABG pH 7.116 L POC ABG pCO2 POC ABG pO2 ABG pO2 ABG Hemoglobin ABG Oxyhemoglobin 93.7 L ABG Sodium ABG Potassium ABG Chloride ABG Glucose 395 H Carboxyhemoglobin Sodium Potassium Chloride Carbon Dioxide BUN Creatinine Glucose POC Glucose Lactic Acid Calcium Magnesium Ferritin AST ALT Alkaline Phosphatase Lactate Dehydrogenase Troponin T C-Reactive Protein Total Protein Albumin HDL Cholesterol Arterial Blood Glucose 395 H Arterial Blood Ionized Calcium 4.4 L Urine WBC (Auto) 05/25/21 05/25/21 05/25/21 09:21 09:21 09:21 WBC RBC Hgb Hct MCV MCH MCHC RDW [facility] # (Auto) Seg Neutrophils % Seg Neuts % (Manual) Lymphocytes % (Manual) Monocytes % (Manual) Seg Neutrophils # Seg Neutrophils # Man Lymphocytes # (Manual) Monocytes # (Manual) PT APTT D-Dimer Heparin Anti-Xa Level ABG pH POC ABG pCO2 POC ABG pO2 ABG pO2 ABG Hemoglobin ABG Oxyhemoglobin ABG Sodium ABG Potassium ABG Chloride ABG Glucose Carboxyhemoglobin Sodium Potassium Chloride Carbon Dioxide 10 L BUN Creatinine Glucose 423 H 424 H POC Glucose Lactic Acid Calcium 8.2 L Magnesium Ferritin 321.6 H AST 162 H ALT 119 H Alkaline Phosphatase Lactate Dehydrogenase 445 H Troponin T C-Reactive Protein Total Protein 5.6 L Albumin 3.2 L HDL Cholesterol Arterial Blood Glucose Arterial Blood Ionized Calcium Urine WBC (Auto) 05/25/21 05/25/21 05/25/21 09:35 10:42 11:12 WBC RBC Hgb Hct MCV MCH MCHC RDW [facility] # (Auto) Seg Neutrophils % Seg Neuts % (Manual) Lymphocytes % (Manual) Monocytes % (Manual) Seg Neutrophils # Seg Neutrophils # Man Lymphocytes # (Manual) Monocytes # (Manual) PT APTT D-Dimer Heparin Anti-Xa Level ABG pH POC ABG pCO2 POC ABG pO2 ABG pO2 ABG Hemoglobin ABG Oxyhemoglobin ABG Sodium ABG Potassium ABG Chloride ABG Glucose Carboxyhemoglobin Sodium Potassium Chloride Carbon Dioxide BUN Creatinine Glucose POC Glucose Lactic Acid 16.70 H* 7.70 H* Calcium Magnesium Ferritin AST ALT Alkaline Phosphatase Lactate Dehydrogenase Troponin T C-Reactive Protein Total Protein Albumin HDL Cholesterol Arterial Blood Glucose Arterial Blood Ionized Calcium Urine WBC (Auto) 11.0 H 05/25/21 05/25/21 05/25/21 14:07 15:19 19:04 WBC RBC Hgb Hct MCV MCH MCHC RDW [facility] # (Auto) Seg Neutrophils % Seg Neuts % (Manual) Lymphocytes % (Manual) Monocytes % (Manual) Seg Neutrophils # Seg Neutrophils # Man Lymphocytes # (Manual) Monocytes # (Manual) PT APTT D-Dimer Heparin Anti-Xa Level ABG pH POC ABG pCO2 POC ABG pO2 172.2 H ABG pO2 ABG Hemoglobin ABG Oxyhemoglobin 98.7 H ABG Sodium 135.7 L ABG Potassium ABG Chloride ABG Glucose 255 H Carboxyhemoglobin 0.3 L Sodium Potassium Chloride Carbon Dioxide BUN Creatinine Glucose POC Glucose Lactic Acid 3.90 H* Calcium Magnesium Ferritin AST ALT Alkaline Phosphatase Lactate Dehydrogenase Troponin T 0.226 H* D C-Reactive Protein Total Protein Albumin HDL Cholesterol 64 H Arterial Blood Glucose 255 H Arterial Blood Ionized Calcium 3.8 L Urine WBC (Auto) 05/25/21 05/25/21 05/26/21 21:16 21:16 04:00 WBC RBC Hgb Hct MCV MCH MCHC RDW [facility] # (Auto) Seg Neutrophils % Seg Neuts % (Manual) Lymphocytes % (Manual) Monocytes % (Manual) Seg Neutrophils # Seg Neutrophils # Man Lymphocytes # (Manual) Monocytes # (Manual) PT APTT D-Dimer Heparin Anti-Xa Level 1.19 H ABG pH 7.547 H POC ABG pCO2 POC ABG pO2 ABG pO2 ABG Hemoglobin 11.9 L ABG Oxyhemoglobin ABG Sodium 133.2 L ABG Potassium 3.1 L ABG Chloride ABG Glucose 243 H Carboxyhemoglobin 0.3 L Sodium Potassium Chloride Carbon Dioxide BUN Creatinine Glucose POC Glucose Lactic Acid 2.50 H* Calcium Magnesium Ferritin AST ALT Alkaline Phosphatase Lactate Dehydrogenase Troponin T C-Reactive Protein Total Protein Albumin HDL Cholesterol Arterial Blood Glucose 243 H Arterial Blood Ionized Calcium Urine WBC (Auto) 05/26/21 05/26/21 05/26/21 05:49 05:49 17:33 WBC RBC Hgb Hct MCV MCH MCHC RDW [facility] # (Auto) Seg Neutrophils % Seg Neuts % (Manual) Lymphocytes % (Manual) Monocytes % (Manual) Seg Neutrophils # Seg Neutrophils # Man Lymphocytes # (Manual) Monocytes # (Manual) PT APTT D-Dimer Heparin Anti-Xa Level ABG pH POC ABG pCO2 POC ABG pO2 ABG pO2 ABG Hemoglobin ABG Oxyhemoglobin ABG Sodium ABG Potassium ABG Chloride ABG Glucose Carboxyhemoglobin Sodium Potassium Chloride Carbon Dioxide BUN Creatinine Glucose 226 H POC Glucose 156 H Lactic Acid 2.30 H* Calcium 7.2 L Magnesium Ferritin AST 111 H ALT 97 H Alkaline Phosphatase Lactate Dehydrogenase Troponin T C-Reactive Protein Total Protein 5.4 L Albumin 3.3 L HDL Cholesterol Arterial Blood Glucose Arterial Blood Ionized Calcium Urine WBC (Auto) 05/27/21 05/27/21 05/27/21 02:11 02:11 02:11 WBC 14.3 H RBC 3.27 L Hgb Hct MCV 99 H MCH 33 H MCHC RDW 15.3 H [facility] # (Auto) 1.0 H Seg Neutrophils % Seg Neuts % (Manual) Lymphocytes % (Manual) Monocytes % (Manual) Seg Neutrophils # 10.0 H Seg Neutrophils # Man Lymphocytes # (Manual) Monocytes # (Manual) PT APTT D-Dimer Heparin Anti-Xa Level 0.80 H ABG pH POC ABG pCO2 POC ABG pO2 ABG pO2 ABG Hemoglobin ABG Oxyhemoglobin ABG Sodium ABG Potassium ABG Chloride ABG Glucose Carboxyhemoglobin Sodium Potassium 2.9 L* D Chloride Carbon Dioxide 31 H BUN 6 L Creatinine Glucose 215 H POC Glucose Lactic Acid Calcium 8.1 L Magnesium Ferritin AST ALT Alkaline Phosphatase Lactate Dehydrogenase Troponin T C-Reactive Protein Total Protein Albumin HDL Cholesterol Arterial Blood Glucose Arterial Blood Ionized Calcium Urine WBC (Auto) 05/27/21 05/27/21 05/27/21 11:24 12:49 18:06 WBC RBC Hgb Hct MCV MCH MCHC RDW [facility] # (Auto) Seg Neutrophils % Seg Neuts % (Manual) Lymphocytes % (Manual) Monocytes % (Manual) Seg Neutrophils # Seg Neutrophils # Man Lymphocytes # (Manual) Monocytes # (Manual) PT APTT D-Dimer Heparin Anti-Xa Level ABG pH POC ABG pCO2 POC ABG pO2 ABG pO2 ABG Hemoglobin ABG Oxyhemoglobin ABG Sodium ABG Potassium ABG Chloride ABG Glucose Carboxyhemoglobin Sodium Potassium Chloride Carbon Dioxide BUN Creatinine Glucose POC Glucose 151 H 165 H 137 H Lactic Acid Calcium Magnesium Ferritin AST ALT Alkaline Phosphatase Lactate Dehydrogenase Troponin T C-Reactive Protein Total Protein Albumin HDL Cholesterol Arterial Blood Glucose Arterial Blood Ionized Calcium Urine WBC (Auto) 05/28/21 05/28/21 05/28/21 04:00 04:00 06:02 WBC 13.5 H RBC 3.05 L Hgb Hct MCV 100 H MCH 34 H MCHC RDW [facility] # (Auto) 0.9 H Seg Neutrophils % 78.2 H Seg Neuts % (Manual) Lymphocytes % (Manual) Monocytes % (Manual) Seg Neutrophils # 10.6 H Seg Neutrophils # Man Lymphocytes # (Manual) Monocytes # (Manual) PT APTT D-Dimer Heparin Anti-Xa Level ABG pH 7.507 H POC ABG pCO2 POC ABG pO2 ABG pO2 ABG Hemoglobin 10.6 L ABG Oxyhemoglobin ABG Sodium 129.4 L ABG Potassium ABG Chloride ABG Glucose 243 H Carboxyhemoglobin 0.2 L Sodium 136 L D Potassium Chloride Carbon Dioxide BUN Creatinine Glucose 215 H POC Glucose Lactic Acid Calcium Magnesium Ferritin AST ALT Alkaline Phosphatase Lactate Dehydrogenase Troponin T C-Reactive Protein Total Protein Albumin HDL Cholesterol Arterial Blood Glucose 243 H Arterial Blood Ionized Calcium 4.1 L Urine WBC (Auto) 05/28/21 05/28/21 05/29/21 11:27 23:02 04:30 WBC RBC Hgb 9.3 L Hct 26.7 L MCV MCH MCHC RDW [facility] # (Auto) Seg Neutrophils % Seg Neuts % (Manual) Lymphocytes % (Manual) Monocytes % (Manual) Seg Neutrophils # Seg Neutrophils # Man Lymphocytes # (Manual) Monocytes # (Manual) PT APTT D-Dimer Heparin Anti-Xa Level ABG pH POC ABG pCO2 POC ABG pO2 ABG pO2 ABG Hemoglobin ABG Oxyhemoglobin ABG Sodium ABG Potassium ABG Chloride ABG Glucose Carboxyhemoglobin Sodium Potassium Chloride Carbon Dioxide BUN Creatinine Glucose POC Glucose 220 H 212 H Lactic Acid Calcium Magnesium Ferritin AST ALT Alkaline Phosphatase Lactate Dehydrogenase Troponin T C-Reactive Protein Total Protein Albumin HDL Cholesterol Arterial Blood Glucose Arterial Blood Ionized Calcium Urine WBC (Auto) 05/29/21 05/29/21 05/29/21 05:02 05:28 12:55 WBC RBC Hgb Hct MCV MCH MCHC RDW [facility] # (Auto) Seg Neutrophils % Seg Neuts % (Manual) Lymphocytes % (Manual) Monocytes % (Manual) Seg Neutrophils # Seg Neutrophils # Man Lymphocytes # (Manual) Monocytes # (Manual) PT APTT D-Dimer Heparin Anti-Xa Level ABG pH 7.516 H POC ABG pCO2 POC ABG pO2 ABG pO2 96.2 H ABG Hemoglobin 7.5 L ABG Oxyhemoglobin ABG Sodium ABG Potassium ABG Chloride ABG Glucose Carboxyhemoglobin Sodium Potassium Chloride Carbon Dioxide BUN Creatinine Glucose POC Glucose 197 H 251 H Lactic Acid Calcium Magnesium Ferritin AST ALT Alkaline Phosphatase Lactate Dehydrogenase Troponin T C-Reactive Protein Total Protein Albumin HDL Cholesterol Arterial Blood Glucose Arterial Blood Ionized Calcium Urine WBC (Auto) 05/29/21 05/29/21 05/30/21 18:23 23:31 04:10 WBC RBC Hgb Hct MCV MCH MCHC RDW [facility] # (Auto) Seg Neutrophils % Seg Neuts % (Manual) Lymphocytes % (Manual) Monocytes % (Manual) Seg Neutrophils # Seg Neutrophils # Man Lymphocytes # (Manual) Monocytes # (Manual) PT APTT D-Dimer Heparin Anti-Xa Level ABG pH 7.532 H POC ABG pCO2 30.0 L POC ABG pO2 78.5 L ABG pO2 ABG Hemoglobin 11.3 L ABG Oxyhemoglobin ABG Sodium 126.7 L ABG Potassium ABG Chloride 94.0 L ABG Glucose 270 H Carboxyhemoglobin 0.4 L Sodium Potassium Chloride Carbon Dioxide BUN Creatinine Glucose POC Glucose 236 H 252 H Lactic Acid Calcium Magnesium Ferritin AST ALT Alkaline Phosphatase Lactate Dehydrogenase Troponin T C-Reactive Protein Total Protein Albumin HDL Cholesterol Arterial Blood Glucose 270 H Arterial Blood Ionized Calcium 4.4 L Urine WBC (Auto) 05/30/21 05/30/21 05/30/21 05:06 06:23 11:15 WBC RBC Hgb Hct MCV MCH MCHC RDW [facility] # (Auto) Seg Neutrophils % Seg Neuts % (Manual) Lymphocytes % (Manual) Monocytes % (Manual) Seg Neutrophils # Seg Neutrophils # Man Lymphocytes # (Manual) Monocytes # (Manual) PT APTT D-Dimer Heparin Anti-Xa Level ABG pH POC ABG pCO2 POC ABG pO2 ABG pO2 ABG Hemoglobin ABG Oxyhemoglobin ABG Sodium ABG Potassium ABG Chloride ABG Glucose Carboxyhemoglobin Sodium 126 L D Potassium Chloride 91.9 L Carbon Dioxide 20 L D BUN Creatinine 0.4 L Glucose 274 H POC Glucose 242 H 346 H Lactic Acid Calcium Magnesium Ferritin AST ALT Alkaline Phosphatase Lactate Dehydrogenase Troponin T C-Reactive Protein Total Protein Albumin HDL Cholesterol Arterial Blood Glucose Arterial Blood Ionized Calcium Urine WBC (Auto) 05/30/21 05/30/21 05/30/21 11:19 11:19 11:19 WBC 18.9 H RBC 3.36 L Hgb Hct MCV 102 H MCH 33 H MCHC RDW 15.5 H [facility] # (Auto) Seg Neutrophils % Seg Neuts % (Manual) Lymphocytes % (Manual) Monocytes % (Manual) Seg Neutrophils # Seg Neutrophils # Man Lymphocytes # (Manual) Monocytes # (Manual) PT APTT D-Dimer Heparin Anti-Xa Level < 0.10 L ABG pH POC ABG pCO2 POC ABG pO2 ABG pO2 ABG Hemoglobin ABG Oxyhemoglobin ABG Sodium ABG Potassium ABG Chloride ABG Glucose Carboxyhemoglobin Sodium 124 L Potassium Chloride Carbon Dioxide BUN Creatinine Glucose POC Glucose Lactic Acid Calcium Magnesium Ferritin AST ALT Alkaline Phosphatase Lactate Dehydrogenase Troponin T C-Reactive Protein Total Protein Albumin HDL Cholesterol Arterial Blood Glucose Arterial Blood Ionized Calcium Urine WBC (Auto) 05/30/21 05/30/21 05/31/21 17:02 23:27 03:37 WBC RBC Hgb Hct MCV MCH MCHC RDW [facility] # (Auto) Seg Neutrophils % Seg Neuts % (Manual) Lymphocytes % (Manual) Monocytes % (Manual) Seg Neutrophils # Seg Neutrophils # Man Lymphocytes # (Manual) Monocytes # (Manual) PT APTT D-Dimer Heparin Anti-Xa Level ABG pH POC ABG pCO2 POC ABG pO2 ABG pO2 ABG Hemoglobin 11.6 L ABG Oxyhemoglobin ABG Sodium 130.0 L ABG Potassium ABG Chloride 95.0 L ABG Glucose 292 H Carboxyhemoglobin Sodium Potassium Chloride Carbon Dioxide BUN Creatinine Glucose POC Glucose 270 H 237 H Lactic Acid Calcium Magnesium Ferritin AST ALT Alkaline Phosphatase Lactate Dehydrogenase Troponin T C-Reactive Protein Total Protein Albumin HDL Cholesterol Arterial Blood Glucose 292 H Arterial Blood Ionized Calcium Urine WBC (Auto) 05/31/21 05/31/21 05/31/21 04:00 04:00 05:20 WBC 20.9 H RBC 3.13 L Hgb Hct MCV 99 H MCH 34 H MCHC RDW [facility] # (Auto) Seg Neutrophils % Seg Neuts % (Manual) 81.0 H Lymphocytes % (Manual) 8.0 L Monocytes % (Manual) 9.0 H Seg Neutrophils # Seg Neutrophils # Man 16.9 H Lymphocytes # (Manual) Monocytes # (Manual) 1.9 H PT APTT D-Dimer Heparin Anti-Xa Level ABG pH POC ABG pCO2 POC ABG pO2 ABG pO2 ABG Hemoglobin ABG Oxyhemoglobin ABG Sodium ABG Potassium ABG Chloride ABG Glucose Carboxyhemoglobin Sodium 133 L D Potassium Chloride 95.4 L Carbon Dioxide 21 L BUN 30 H Creatinine 0.5 L Glucose 305 H POC Glucose 269 H Lactic Acid Calcium Magnesium Ferritin AST ALT Alkaline Phosphatase Lactate Dehydrogenase Troponin T C-Reactive Protein Total Protein Albumin HDL Cholesterol Arterial Blood Glucose Arterial Blood Ionized Calcium Urine WBC (Auto) 05/31/21 05/31/21 05/31/21 11:40 18:16 23:25 WBC RBC Hgb Hct MCV MCH MCHC RDW [facility] # (Auto) Seg Neutrophils % Seg Neuts % (Manual) Lymphocytes % (Manual) Monocytes % (Manual) Seg Neutrophils # Seg Neutrophils # Man Lymphocytes # (Manual) Monocytes # (Manual) PT APTT D-Dimer Heparin Anti-Xa Level ABG pH POC ABG pCO2 POC ABG pO2 ABG pO2 ABG Hemoglobin ABG Oxyhemoglobin ABG Sodium ABG Potassium ABG Chloride ABG Glucose Carboxyhemoglobin Sodium Potassium Chloride Carbon Dioxide BUN Creatinine Glucose POC Glucose 364 H 250 H 231 H Lactic Acid Calcium Magnesium Ferritin AST ALT Alkaline Phosphatase Lactate Dehydrogenase Troponin T C-Reactive Protein Total Protein Albumin HDL Cholesterol Arterial Blood Glucose Arterial Blood Ionized Calcium Urine WBC (Auto) 06/01/21 06/01/21 06/01/21 04:03 04:58 04:58 WBC 20.7 H RBC 3.20 L Hgb Hct MCV 99 H MCH 34 H MCHC RDW [facility] # (Auto) Seg Neutrophils % Seg Neuts % (Manual) 82.0 H Lymphocytes % (Manual) 9.0 L Monocytes % (Manual) Seg Neutrophils # Seg Neutrophils # Man 17.0 H Lymphocytes # (Manual) Monocytes # (Manual) 1.4 H PT APTT D-Dimer Heparin Anti-Xa Level 1.18 H ABG pH 7.520 H POC ABG pCO2 POC ABG pO2 66.0 L ABG pO2 ABG Hemoglobin ABG Oxyhemoglobin 92.5 L ABG Sodium 133.6 L ABG Potassium ABG Chloride ABG Glucose 250 H Carboxyhemoglobin Sodium Potassium Chloride Carbon Dioxide BUN Creatinine Glucose POC Glucose Lactic Acid Calcium Magnesium Ferritin AST ALT Alkaline Phosphatase Lactate Dehydrogenase Troponin T C-Reactive Protein Total Protein Albumin HDL Cholesterol Arterial Blood Glucose 250 H Arterial Blood Ionized Calcium 4.4 L Urine WBC (Auto) 06/01/21 06/01/21 06/01/21 04:58 05:29 11:39 WBC RBC Hgb Hct MCV MCH MCHC RDW [facility] # (Auto) Seg Neutrophils % Seg Neuts % (Manual) Lymphocytes % (Manual) Monocytes % (Manual) Seg Neutrophils # Seg Neutrophils # Man Lymphocytes # (Manual) Monocytes # (Manual) PT APTT D-Dimer Heparin Anti-Xa Level ABG pH POC ABG pCO2 POC ABG pO2 ABG pO2 ABG Hemoglobin ABG Oxyhemoglobin ABG Sodium ABG Potassium ABG Chloride ABG Glucose Carboxyhemoglobin Sodium 131 L Potassium Chloride 95.7 L Carbon Dioxide BUN 30 H Creatinine 0.5 L Glucose 241 H POC Glucose 215 H 299 H Lactic Acid Calcium Magnesium Ferritin AST ALT Alkaline Phosphatase Lactate Dehydrogenase Troponin T C-Reactive Protein Total Protein Albumin HDL Cholesterol Arterial Blood Glucose Arterial Blood Ionized Calcium Urine WBC (Auto) 06/01/21 06/02/21 06/02/21 18:14 00:12 02:25 WBC 17.4 H RBC 3.09 L Hgb Hct MCV 101 H MCH 34 H MCHC RDW 15.5 H [facility] # (Auto) Seg Neutrophils % Seg Neuts % (Manual) Lymphocytes % (Manual) Monocytes % (Manual) Seg Neutrophils # Seg Neutrophils # Man Lymphocytes # (Manual) Monocytes # (Manual) PT APTT D-Dimer Heparin Anti-Xa Level ABG pH POC ABG pCO2 POC ABG pO2 ABG pO2 ABG Hemoglobin ABG Oxyhemoglobin ABG Sodium ABG Potassium ABG Chloride ABG Glucose Carboxyhemoglobin Sodium Potassium Chloride Carbon Dioxide BUN Creatinine Glucose POC Glucose 215 H 175 H Lactic Acid Calcium Magnesium Ferritin AST ALT Alkaline Phosphatase Lactate Dehydrogenase Troponin T C-Reactive Protein Total Protein Albumin HDL Cholesterol Arterial Blood Glucose Arterial Blood Ionized Calcium Urine WBC (Auto) 06/02/21 06/02/21 06/02/21 02:25 04:13 04:58 WBC RBC Hgb Hct MCV MCH MCHC RDW [facility] # (Auto) Seg Neutrophils % Seg Neuts % (Manual) Lymphocytes % (Manual) Monocytes % (Manual) Seg Neutrophils # Seg Neutrophils # Man Lymphocytes # (Manual) Monocytes # (Manual) PT APTT D-Dimer Heparin Anti-Xa Level ABG pH 7.481 H POC ABG pCO2 POC ABG pO2 80.0 L ABG pO2 ABG Hemoglobin 11.1 L ABG Oxyhemoglobin ABG Sodium 131.9 L ABG Potassium ABG Chloride ABG Glucose 231 H Carboxyhemoglobin 0.2 L Sodium 134 L Potassium Chloride 95.8 L Carbon Dioxide BUN 31 H Creatinine 0.5 L Glucose 168 H POC Glucose 230 H Lactic Acid Calcium Magnesium Ferritin AST ALT Alkaline Phosphatase Lactate Dehydrogenase Troponin T C-Reactive Protein Total Protein Albumin HDL Cholesterol Arterial Blood Glucose 231 H Arterial Blood Ionized Calcium Urine WBC (Auto) 06/02/21 06/02/21 06/02/21 11:27 17:47 23:53 WBC RBC Hgb Hct MCV MCH MCHC RDW [facility] # (Auto) Seg Neutrophils % Seg Neuts % (Manual) Lymphocytes % (Manual) Monocytes % (Manual) Seg Neutrophils # Seg Neutrophils # Man Lymphocytes # (Manual) Monocytes # (Manual) PT APTT D-Dimer Heparin Anti-Xa Level 0.80 H ABG pH POC ABG pCO2 POC ABG pO2 ABG pO2 ABG Hemoglobin ABG Oxyhemoglobin ABG Sodium ABG Potassium ABG Chloride ABG Glucose Carboxyhemoglobin Sodium Potassium Chloride Carbon Dioxide BUN Creatinine Glucose POC Glucose 259 H 297 H Lactic Acid Calcium Magnesium Ferritin AST ALT Alkaline Phosphatase Lactate Dehydrogenase Troponin T C-Reactive Protein Total Protein Albumin HDL Cholesterol Arterial Blood Glucose Arterial Blood Ionized Calcium Urine WBC (Auto) 06/03/21 06/03/21 06/03/21 00:05 05:23 09:10 WBC RBC Hgb Hct MCV MCH MCHC RDW [facility] # (Auto) Seg Neutrophils % Seg Neuts % (Manual) Lymphocytes % (Manual) Monocytes % (Manual) Seg Neutrophils # Seg Neutrophils # Man Lymphocytes # (Manual) Monocytes # (Manual) PT APTT D-Dimer Heparin Anti-Xa Level 0.84 H ABG pH POC ABG pCO2 POC ABG pO2 ABG pO2 ABG Hemoglobin ABG Oxyhemoglobin ABG Sodium ABG Potassium ABG Chloride ABG Glucose Carboxyhemoglobin Sodium Potassium Chloride Carbon Dioxide BUN Creatinine Glucose POC Glucose 268 H 170 H Lactic Acid Calcium Magnesium Ferritin AST ALT Alkaline Phosphatase Lactate Dehydrogenase Troponin T C-Reactive Protein Total Protein Albumin HDL Cholesterol Arterial Blood Glucose Arterial Blood Ionized Calcium Urine WBC (Auto) 06/03/21 06/03/21 06/03/21 12:06 20:22 23:30 WBC RBC Hgb Hct MCV MCH MCHC RDW [facility] # (Auto) Seg Neutrophils % Seg Neuts % (Manual) Lymphocytes % (Manual) Monocytes % (Manual) Seg Neutrophils # Seg Neutrophils # Man Lymphocytes # (Manual) Monocytes # (Manual) PT APTT D-Dimer Heparin Anti-Xa Level ABG pH POC ABG pCO2 POC ABG pO2 ABG pO2 ABG Hemoglobin ABG Oxyhemoglobin ABG Sodium ABG Potassium ABG Chloride ABG Glucose Carboxyhemoglobin Sodium Potassium Chloride Carbon Dioxide BUN Creatinine Glucose POC Glucose 275 H 260 H 215 H Lactic Acid Calcium Magnesium Ferritin AST ALT Alkaline Phosphatase Lactate Dehydrogenase Troponin T C-Reactive Protein Total Protein Albumin HDL Cholesterol Arterial Blood Glucose Arterial Blood Ionized Calcium Urine WBC (Auto) 06/04/21 06/04/21 06/04/21 05:03 05:57 05:57 WBC 17.8 H RBC 2.83 L Hgb 9.6 L Hct 28.4 L MCV 100 H MCH 34 H MCHC RDW 15.5 H [facility] # (Auto) Seg Neutrophils % Seg Neuts % (Manual) 83.0 H Lymphocytes % (Manual) 4.0 L Monocytes % (Manual) Seg Neutrophils # Seg Neutrophils # Man 14.8 H Lymphocytes # (Manual) 0.7 L Monocytes # (Manual) 1.1 H PT APTT D-Dimer Heparin Anti-Xa Level ABG pH POC ABG pCO2 POC ABG pO2 ABG pO2 ABG Hemoglobin ABG Oxyhemoglobin ABG Sodium ABG Potassium ABG Chloride ABG Glucose Carboxyhemoglobin Sodium 135 L Potassium Chloride 96.3 L Carbon Dioxide BUN 51 H Creatinine Glucose 275 H POC Glucose 257 H Lactic Acid Calcium Magnesium Ferritin AST ALT Alkaline Phosphatase Lactate Dehydrogenase Troponin T C-Reactive Protein Total Protein Albumin HDL Cholesterol Arterial Blood Glucose Arterial Blood Ionized Calcium Urine WBC (Auto) 06/04/21 06/04/21 06/04/21 09:48 11:08 17:33 WBC RBC Hgb Hct MCV MCH MCHC RDW [facility] # (Auto) Seg Neutrophils % Seg Neuts % (Manual) Lymphocytes % (Manual) Monocytes % (Manual) Seg Neutrophils # Seg Neutrophils # Man Lymphocytes # (Manual) Monocytes # (Manual) PT APTT D-Dimer Heparin Anti-Xa Level ABG pH POC ABG pCO2 POC ABG pO2 ABG pO2 ABG Hemoglobin ABG Oxyhemoglobin ABG Sodium ABG Potassium ABG Chloride ABG Glucose Carboxyhemoglobin Sodium Potassium Chloride Carbon Dioxide BUN Creatinine Glucose POC Glucose 198 H 234 H 247 H Lactic Acid Calcium Magnesium Ferritin AST ALT Alkaline Phosphatase Lactate Dehydrogenase Troponin T C-Reactive Protein Total Protein Albumin HDL Cholesterol Arterial Blood Glucose Arterial Blood Ionized Calcium Urine WBC (Auto) 06/04/21 06/05/21 06/05/21 23:30 05:38 11:24 WBC RBC Hgb Hct MCV MCH MCHC RDW [facility] # (Auto) Seg Neutrophils % Seg Neuts % (Manual) Lymphocytes % (Manual) Monocytes % (Manual) Seg Neutrophils # Seg Neutrophils # Man Lymphocytes # (Manual) Monocytes # (Manual) PT APTT D-Dimer Heparin Anti-Xa Level ABG pH POC ABG pCO2 POC ABG pO2 ABG pO2 ABG Hemoglobin ABG Oxyhemoglobin ABG Sodium ABG Potassium ABG Chloride ABG Glucose Carboxyhemoglobin Sodium Potassium Chloride Carbon Dioxide BUN Creatinine Glucose POC Glucose 192 H 192 H 287 H Lactic Acid Calcium Magnesium Ferritin AST ALT Alkaline Phosphatase Lactate Dehydrogenase Troponin T C-Reactive Protein Total Protein Albumin HDL Cholesterol Arterial Blood Glucose Arterial Blood Ionized Calcium Urine WBC (Auto) 06/05/21 06/05/21 06/05/21 12:20 12:20 12:20 WBC 16.2 H RBC 2.56 L Hgb 8.8 L Hct 25.2 L MCV 98 H MCH 35 H MCHC 35 H RDW 15.3 H [facility] # (Auto) Seg Neutrophils % Seg Neuts % (Manual) Lymphocytes % (Manual) Monocytes % (Manual) Seg Neutrophils # Seg Neutrophils # Man Lymphocytes # (Manual) Monocytes # (Manual) PT APTT 72.2 H* D-Dimer Heparin Anti-Xa Level ABG pH POC ABG pCO2 POC ABG pO2 ABG pO2 ABG Hemoglobin ABG Oxyhemoglobin ABG Sodium ABG Potassium ABG Chloride ABG Glucose Carboxyhemoglobin Sodium 133 L Potassium Chloride 95.3 L Carbon Dioxide BUN 57 H Creatinine Glucose 313 H POC Glucose Lactic Acid Calcium Magnesium Ferritin AST 90 H ALT 79 H Alkaline Phosphatase 262 H Lactate Dehydrogenase Troponin T C-Reactive Protein Total Protein Albumin 2.7 L HDL Cholesterol Arterial Blood Glucose Arterial Blood Ionized Calcium Urine WBC (Auto) 06/05/21 06/05/21 06/05/21 17:50 22:57 23:36 WBC RBC Hgb Hct MCV MCH MCHC RDW [facility] # (Auto) Seg Neutrophils % Seg Neuts % (Manual) Lymphocytes % (Manual) Monocytes % (Manual) Seg Neutrophils # Seg Neutrophils # Man Lymphocytes # (Manual) Monocytes # (Manual) PT APTT D-Dimer Heparin Anti-Xa Level 0.28 L ABG pH POC ABG pCO2 POC ABG pO2 ABG pO2 ABG Hemoglobin ABG Oxyhemoglobin ABG Sodium ABG Potassium ABG Chloride ABG Glucose Carboxyhemoglobin Sodium Potassium Chloride Carbon Dioxide BUN Creatinine Glucose POC Glucose 275 H 223 H Lactic Acid Calcium Magnesium Ferritin AST ALT Alkaline Phosphatase Lactate Dehydrogenase Troponin T C-Reactive Protein Total Protein Albumin HDL Cholesterol Arterial Blood Glucose Arterial Blood Ionized Calcium Urine WBC (Auto) 06/06/21 06/06/21 06/06/21 04:57 04:57 05:02 WBC 15.7 H RBC 2.77 L Hgb 9.4 L Hct 27.2 L MCV 98 H MCH 34 H MCHC RDW 15.4 H [facility] # (Auto) Seg Neutrophils % Seg Neuts % (Manual) Lymphocytes % (Manual) Monocytes % (Manual) Seg Neutrophils # Seg Neutrophils # Man Lymphocytes # (Manual) Monocytes # (Manual) PT APTT D-Dimer Heparin Anti-Xa Level ABG pH POC ABG pCO2 POC ABG pO2 ABG pO2 ABG Hemoglobin ABG Oxyhemoglobin ABG Sodium ABG Potassium ABG Chloride ABG Glucose Carboxyhemoglobin Sodium Potassium 5.7 H Chloride Carbon Dioxide BUN 57 H Creatinine Glucose 245 H POC Glucose 217 H Lactic Acid Calcium Magnesium Ferritin AST 99 H ALT 136 H Alkaline Phosphatase 312 H Lactate Dehydrogenase Troponin T C-Reactive Protein Total Protein 6.1 L Albumin 3.1 L HDL Cholesterol Arterial Blood Glucose Arterial Blood Ionized Calcium Urine WBC (Auto) 06/06/21 06/06/21 06/06/21 11:37 17:34 18:09 WBC RBC Hgb Hct MCV MCH MCHC RDW [facility] # (Auto) Seg Neutrophils % Seg Neuts % (Manual) Lymphocytes % (Manual) Monocytes % (Manual) Seg Neutrophils # Seg Neutrophils # Man Lymphocytes # (Manual) Monocytes # (Manual) PT APTT D-Dimer Heparin Anti-Xa Level ABG pH POC ABG pCO2 POC ABG pO2 ABG pO2 ABG Hemoglobin ABG Oxyhemoglobin ABG Sodium ABG Potassium ABG Chloride ABG Glucose Carboxyhemoglobin Sodium Potassium 5.2 H Chloride Carbon Dioxide BUN 48 H Creatinine Glucose 245 H POC Glucose 251 H 217 H Lactic Acid Calcium Magnesium Ferritin AST ALT Alkaline Phosphatase Lactate Dehydrogenase Troponin T C-Reactive Protein Total Protein Albumin HDL Cholesterol Arterial Blood Glucose Arterial Blood Ionized Calcium Urine WBC (Auto) 06/06/21 06/07/21 06/07/21 23:53 04:45 04:45 WBC 21.5 H RBC 2.71 L Hgb 9.0 L Hct 26.9 L MCV 99 H MCH 33 H MCHC RDW 15.3 H [facility] # (Auto) Seg Neutrophils % Seg Neuts % (Manual) Lymphocytes % (Manual) Monocytes % (Manual) Seg Neutrophils # Seg Neutrophils # Man Lymphocytes # (Manual) Monocytes # (Manual) PT APTT D-Dimer Heparin Anti-Xa Level 0.10 L ABG pH POC ABG pCO2 POC ABG pO2 ABG pO2 ABG Hemoglobin ABG Oxyhemoglobin ABG Sodium ABG Potassium ABG Chloride ABG Glucose Carboxyhemoglobin Sodium Potassium Chloride Carbon Dioxide BUN Creatinine Glucose POC Glucose 224 H Lactic Acid Calcium Magnesium Ferritin AST ALT Alkaline Phosphatase Lactate Dehydrogenase Troponin T C-Reactive Protein Total Protein Albumin HDL Cholesterol Arterial Blood Glucose Arterial Blood Ionized Calcium Urine WBC (Auto) 06/07/21 06/07/21 06/07/21 04:45 05:11 11:50 WBC RBC Hgb Hct MCV MCH MCHC RDW [facility] # (Auto) Seg Neutrophils % Seg Neuts % (Manual) Lymphocytes % (Manual) Monocytes % (Manual) Seg Neutrophils # Seg Neutrophils # Man Lymphocytes # (Manual) Monocytes # (Manual) PT APTT D-Dimer Heparin Anti-Xa Level ABG pH POC ABG pCO2 POC ABG pO2 ABG pO2 ABG Hemoglobin ABG Oxyhemoglobin ABG Sodium ABG Potassium ABG Chloride ABG Glucose Carboxyhemoglobin Sodium Potassium 5.4 H Chloride Carbon Dioxide BUN 55 H Creatinine Glucose 178 H POC Glucose 156 H 118 H Lactic Acid Calcium Magnesium Ferritin AST ALT Alkaline Phosphatase Lactate Dehydrogenase Troponin T C-Reactive Protein Total Protein Albumin HDL Cholesterol Arterial Blood Glucose Arterial Blood Ionized Calcium Urine WBC (Auto) 06/07/21 06/07/2121 14:52 17:45 20:43 WBC RBC Hgb Hct MCV MCH MCHC RDW [facility] # (Auto) Seg Neutrophils % Seg Neuts % (Manual) Lymphocytes % (Manual) Monocytes % (Manual) Seg Neutrophils # Seg Neutrophils # Man Lymphocytes # (Manual) Monocytes # (Manual) PT APTT D-Dimer Heparin Anti-Xa Level 0.73 H ABG pH POC ABG pCO2 POC ABG pO2 ABG pO2 ABG Hemoglobin ABG Oxyhemoglobin ABG Sodium ABG Potassium ABG Chloride ABG Glucose Carboxyhemoglobin Sodium Potassium Chloride Carbon Dioxide BUN Creatinine Glucose POC Glucose 164 H Lactic Acid Calcium Magnesium Ferritin AST ALT Alkaline Phosphatase Lactate Dehydrogenase Troponin T C-Reactive Protein 28.90 H Total Protein Albumin HDL Cholesterol Arterial Blood Glucose Arterial Blood Ionized Calcium Urine WBC (Auto) 06/07/21 06/08/21 06/08/21 23:15 04:25 04:25 WBC 15.8 H RBC 2.58 L Hgb 8.6 L Hct 25.7 L MCV 100 H MCH 33 H MCHC RDW [facility] # (Auto) Seg Neutrophils % Seg Neuts % (Manual) 76.0 H Lymphocytes % (Manual) 6.0 L Monocytes % (Manual) 8.0 H Seg Neutrophils # Seg Neutrophils # Man 12.0 H Lymphocytes # (Manual) 0.9 L Monocytes # (Manual) 1.3 H PT APTT D-Dimer Heparin Anti-Xa Level ABG pH POC ABG pCO2 POC ABG pO2 ABG pO2 ABG Hemoglobin ABG Oxyhemoglobin ABG Sodium ABG Potassium ABG Chloride ABG Glucose Carboxyhemoglobin Sodium Potassium Chloride Carbon Dioxide BUN 65 H Creatinine Glucose 205 H POC Glucose 236 H Lactic Acid Calcium Magnesium Ferritin AST ALT Alkaline Phosphatase Lactate Dehydrogenase Troponin T C-Reactive Protein Total Protein Albumin HDL Cholesterol Arterial Blood Glucose Arterial Blood Ionized Calcium Urine WBC (Auto) 06/08/21 06/08/21 06/08/21 05:36 11:18 17:41 WBC RBC Hgb Hct MCV MCH MCHC RDW [facility] # (Auto) Seg Neutrophils % Seg Neuts % (Manual) Lymphocytes % (Manual) Monocytes % (Manual) Seg Neutrophils # Seg Neutrophils # Man Lymphocytes # (Manual) Monocytes # (Manual) PT APTT D-Dimer Heparin Anti-Xa Level ABG pH POC ABG pCO2 POC ABG pO2 ABG pO2 ABG Hemoglobin ABG Oxyhemoglobin ABG Sodium ABG Potassium ABG Chloride ABG Glucose Carboxyhemoglobin Sodium Potassium Chloride Carbon Dioxide BUN Creatinine Glucose POC Glucose 185 H 203 H 173 H Lactic Acid Calcium Magnesium Ferritin AST ALT Alkaline Phosphatase Lactate Dehydrogenase Troponin T C-Reactive Protein Total Protein Albumin HDL Cholesterol Arterial Blood Glucose Arterial Blood Ionized Calcium Urine WBC (Auto) 06/08/21 06/09/21 06/09/21 23:34 05:16 05:20 WBC 15.0 H RBC 2.54 L Hgb 8.5 L Hct 25.2 L MCV 99 H MCH 33 H MCHC RDW [facility] # (Auto) Seg Neutrophils % Seg Neuts % (Manual) Lymphocytes % (Manual) Monocytes % (Manual) Seg Neutrophils # Seg Neutrophils # Man Lymphocytes # (Manual) Monocytes # (Manual) PT APTT D-Dimer Heparin Anti-Xa Level ABG pH POC ABG pCO2 POC ABG pO2 ABG pO2 ABG Hemoglobin ABG Oxyhemoglobin ABG Sodium ABG Potassium ABG Chloride ABG Glucose Carboxyhemoglobin Sodium Potassium Chloride Carbon Dioxide BUN Creatinine Glucose POC Glucose 200 H 154 H Lactic Acid Calcium Magnesium Ferritin AST ALT Alkaline Phosphatase Lactate Dehydrogenase Troponin T C-Reactive Protein Total Protein Albumin HDL Cholesterol Arterial Blood Glucose Arterial Blood Ionized Calcium Urine WBC (Auto) 06/09/21 06/09/21 06/09/21 05:20 11:40 17:09 WBC RBC Hgb Hct MCV MCH MCHC RDW [facility] # (Auto) Seg Neutrophils % Seg Neuts % (Manual) Lymphocytes % (Manual) Monocytes % (Manual) Seg Neutrophils # Seg Neutrophils # Man Lymphocytes # (Manual) Monocytes # (Manual) PT APTT D-Dimer Heparin Anti-Xa Level ABG pH POC ABG pCO2 POC ABG pO2 ABG pO2 ABG Hemoglobin ABG Oxyhemoglobin ABG Sodium ABG Potassium ABG Chloride ABG Glucose Carboxyhemoglobin Sodium Potassium 5.2 H Chloride Carbon Dioxide BUN 69 H Creatinine Glucose 163 H POC Glucose 232 H 137 H Lactic Acid Calcium Magnesium Ferritin AST ALT Alkaline Phosphatase Lactate Dehydrogenase Troponin T C-Reactive Protein Total Protein Albumin HDL Cholesterol Arterial Blood Glucose Arterial Blood Ionized Calcium Urine WBC (Auto) 06/09/21 06/10/21 06/10/21 23:31 04:42 04:42 WBC 14.5 H RBC 2.41 L Hgb 8.2 L Hct 24.0 L MCV 100 H MCH 34 H MCHC RDW 15.8 H [facility] # (Auto) Seg Neutrophils % Seg Neuts % (Manual) Lymphocytes % (Manual) Monocytes % (Manual) Seg Neutrophils # Seg Neutrophils # Man Lymphocytes # (Manual) Monocytes # (Manual) PT APTT D-Dimer Heparin Anti-Xa Level ABG pH POC ABG pCO2 POC ABG pO2 ABG pO2 ABG Hemoglobin ABG Oxyhemoglobin ABG Sodium ABG Potassium ABG Chloride ABG Glucose Carboxyhemoglobin Sodium 146 H D Potassium 3.4 L D Chloride Carbon Dioxide BUN 62 H Creatinine Glucose 174 H POC Glucose 162 H Lactic Acid Calcium Magnesium Ferritin AST ALT Alkaline Phosphatase Lactate Dehydrogenase Troponin T C-Reactive Protein Total Protein Albumin HDL Cholesterol Arterial Blood Glucose Arterial Blood Ionized Calcium Urine WBC (Auto) 06/10/21 06/10/21 06/10/21 05:36 11:43 18:24 WBC RBC Hgb Hct MCV MCH MCHC RDW [facility] # (Auto) Seg Neutrophils % Seg Neuts % (Manual) Lymphocytes % (Manual) Monocytes % (Manual) Seg Neutrophils # Seg Neutrophils # Man Lymphocytes # (Manual) Monocytes # (Manual) PT APTT D-Dimer Heparin Anti-Xa Level ABG pH POC ABG pCO2 POC ABG pO2 ABG pO2 ABG Hemoglobin ABG Oxyhemoglobin ABG Sodium ABG Potassium ABG Chloride ABG Glucose Carboxyhemoglobin Sodium Potassium Chloride Carbon Dioxide BUN Creatinine Glucose POC Glucose 149 H 183 H 139 H Lactic Acid Calcium Magnesium Ferritin AST ALT Alkaline Phosphatase Lactate Dehydrogenase Troponin T C-Reactive Protein Total Protein Albumin HDL Cholesterol Arterial Blood Glucose Arterial Blood Ionized Calcium Urine WBC (Auto) 06/10/21 06/11/21 06/11/21 23:32 04:17 05:22 WBC RBC Hgb Hct MCV MCH MCHC RDW [facility] # (Auto) Seg Neutrophils % Seg Neuts % (Manual) Lymphocytes % (Manual) Monocytes % (Manual) Seg Neutrophils # Seg Neutrophils # Man Lymphocytes # (Manual) Monocytes # (Manual) PT APTT D-Dimer Heparin Anti-Xa Level 0.84 H ABG pH POC ABG pCO2 POC ABG pO2 ABG pO2 ABG Hemoglobin ABG Oxyhemoglobin ABG Sodium ABG Potassium ABG Chloride ABG Glucose Carboxyhemoglobin Sodium Potassium Chloride Carbon Dioxide BUN Creatinine Glucose POC Glucose 149 H 138 H Lactic Acid Calcium Magnesium Ferritin AST ALT Alkaline Phosphatase Lactate Dehydrogenase Troponin T C-Reactive Protein Total Protein Albumin HDL Cholesterol Arterial Blood Glucose Arterial Blood Ionized Calcium Urine WBC (Auto) 06/11/21 06/11/21 06/12/21 11:26 23:56 04:44 WBC 15.5 H RBC 2.59 L Hgb 8.6 L Hct 25.8 L MCV 100 H MCH 33 H MCHC RDW 15.3 H [facility] # (Auto) Seg Neutrophils % Seg Neuts % (Manual) Lymphocytes % (Manual) Monocytes % (Manual) Seg Neutrophils # Seg Neutrophils # Man Lymphocytes # (Manual) Monocytes # (Manual) PT APTT D-Dimer Heparin Anti-Xa Level ABG pH POC ABG pCO2 POC ABG pO2 ABG pO2 ABG Hemoglobin ABG Oxyhemoglobin ABG Sodium ABG Potassium ABG Chloride ABG Glucose Carboxyhemoglobin Sodium Potassium Chloride Carbon Dioxide BUN Creatinine Glucose POC Glucose 198 H 199 H Lactic Acid Calcium Magnesium Ferritin AST ALT Alkaline Phosphatase Lactate Dehydrogenase Troponin T C-Reactive Protein Total Protein Albumin HDL Cholesterol Arterial Blood Glucose Arterial Blood Ionized Calcium Urine WBC (Auto) 06/12/21 06/12/21 06/12/21 04:44 04:44 05:29 WBC RBC Hgb Hct MCV MCH MCHC RDW [facility] # (Auto) Seg Neutrophils % Seg Neuts % (Manual) Lymphocytes % (Manual) Monocytes % (Manual) Seg Neutrophils # Seg Neutrophils # Man Lymphocytes # (Manual) Monocytes # (Manual) PT APTT D-Dimer Heparin Anti-Xa Level ABG pH POC ABG pCO2 POC ABG pO2 ABG pO2 ABG Hemoglobin ABG Oxyhemoglobin ABG Sodium ABG Potassium ABG Chloride ABG Glucose Carboxyhemoglobin Sodium 148 H Potassium Chloride Carbon Dioxide BUN 49 H 51 H Creatinine Glucose 222 H 223 H POC Glucose 193 H Lactic Acid Calcium Magnesium 3.20 H Ferritin AST 81 H ALT 83 H Alkaline Phosphatase 215 H Lactate Dehydrogenase Troponin T C-Reactive Protein Total Protein Albumin 3.2 L HDL Cholesterol Arterial Blood Glucose Arterial Blood Ionized Calcium Urine WBC (Auto) 06/12/21 06/12/21 06/12/21 11:21 17:55 23:23 WBC RBC Hgb Hct MCV MCH MCHC RDW [facility] # (Auto) Seg Neutrophils % Seg Neuts % (Manual) Lymphocytes % (Manual) Monocytes % (Manual) Seg Neutrophils # Seg Neutrophils # Man Lymphocytes # (Manual) Monocytes # (Manual) PT APTT D-Dimer Heparin Anti-Xa Level ABG pH POC ABG pCO2 POC ABG pO2 ABG pO2 ABG Hemoglobin ABG Oxyhemoglobin ABG Sodium ABG Potassium ABG Chloride ABG Glucose Carboxyhemoglobin Sodium Potassium Chloride Carbon Dioxide BUN Creatinine Glucose POC Glucose 185 H 210 H 211 H Lactic Acid Calcium Magnesium Ferritin AST ALT Alkaline Phosphatase Lactate Dehydrogenase Troponin T C-Reactive Protein Total Protein Albumin HDL Cholesterol Arterial Blood Glucose Arterial Blood Ionized Calcium Urine WBC (Auto) 06/13/21 06/13/21 06/13/21 04:34 04:34 05:17 WBC 17.2 H RBC 2.56 L Hgb 8.6 L Hct 26.1 L MCV 102 H MCH 34 H MCHC RDW [facility] # (Auto) Seg Neutrophils % Seg Neuts % (Manual) Lymphocytes % (Manual) Monocytes % (Manual) Seg Neutrophils # Seg Neutrophils # Man Lymphocytes # (Manual) Monocytes # (Manual) PT APTT D-Dimer Heparin Anti-Xa Level ABG pH POC ABG pCO2 POC ABG pO2 ABG pO2 ABG Hemoglobin ABG Oxyhemoglobin ABG Sodium ABG Potassium ABG Chloride ABG Glucose Carboxyhemoglobin Sodium 149 H Potassium 5.1 H Chloride Carbon Dioxide BUN 52 H Creatinine 1.6 H Glucose 231 H POC Glucose 207 H Lactic Acid Calcium Magnesium Ferritin AST 69 H ALT 74 H Alkaline Phosphatase 197 H Lactate Dehydrogenase Troponin T C-Reactive Protein Total Protein Albumin 3.0 L HDL Cholesterol Arterial Blood Glucose Arterial Blood Ionized Calcium Urine WBC (Auto) 06/13/21 06/13/21 10:44 12:07 WBC RBC Hgb Hct MCV MCH MCHC RDW [facility] # (Auto) Seg Neutrophils % Seg Neuts % (Manual) Lymphocytes % (Manual) Monocytes % (Manual) Seg Neutrophils # Seg Neutrophils # Man Lymphocytes # (Manual) Monocytes # (Manual) PT APTT D-Dimer Heparin Anti-Xa Level < 0.10 L ABG pH POC ABG pCO2 POC ABG pO2 ABG pO2 ABG Hemoglobin ABG Oxyhemoglobin ABG Sodium ABG Potassium ABG Chloride ABG Glucose Carboxyhemoglobin Sodium Potassium Chloride Carbon Dioxide BUN Creatinine Glucose POC Glucose 241 H Lactic Acid Calcium Magnesium Ferritin AST ALT Alkaline Phosphatase Lactate Dehydrogenase Troponin T C-Reactive Protein Total Protein Albumin HDL Cholesterol Arterial Blood Glucose Arterial Blood Ionized Calcium Urine WBC (Auto) Chest x-ray: pending Allied health notes reviewed: nursing
[2021-06-13] MEDS: hydrALAZINE 25 MG TAB PO SCH ×4 (13:05→21:54)
--- NOTE | 2021-06-13 14:46 | Progress Note ---
Assessment and Plan Assessment and plan: 65-year-old female with PmHx of nonepileptic spells, PTSD, closed head injury, hypertension, diabetes, CAD, who came in s/p cardiac arrest Hospital Course to Date: 06/05/21- Patient remains ETT and on vent support. Off sedation with some improvement in neuro status, but is not following commands. Patient is tolerating SBT trial this am, still on the heparin gtt. AM labs is pending. Patient is still hyperglycemic, increased Qhs lantus. Continue supportive care. 06/06/21- Patient is intubated and on the vent. No longer on sedation, awake but unresponsive, tolerating SBT. Hyperglycemia this am, X1 dose of kayaxalate orderd. Persistent hyperglycemia, insulin adjusted. Continue to monitor electrolytes, repeat BMP this afternoon and am labs ordered. 06/07/21- Patient remains intubated and on the vent. Neuro status is unchanged, spontaneously open yes but is not following commands. SBT trial again, plan to place back on a rate overnight. Leukocytosis noted from this morning lab, stat procalc and CRP ordered, d/w CCM no abx at this time. K 5.4 today, kayalalxate given. Continue to monitor leukocytosis and electrolytes. Am labs ordered 06/08/21- Patient remains intubated and on the vent with no significant change in her neuro status. Patient with no BM in 7days, abdominal soft with positive bowel sounds, colace added and PRN ducolax Supp PRN. Continue to monitor leukocytosis and electrolytes, am labs ordered. Plan for trach and PEG, surgery consulted. 06/09/21- Patient remains stable, intubated with no significant change in neuro status. Trach and Peg cancelled for today. Plan for possibly next week. Hyperkalemia again today, chart review for possible meds interaction. X1 dose of kayexalate ordered. Still no BM today. Episode of emesis today, TF held and NGT to LIS until tommorrow. Orders place for KUB today and Chest XR for the morning. Morning labs ordered. 06/10: Continue supportive care. Trach and PEG planned for early next week. KUB and x-ray with no significant change. Opacity still persist. Critical care management noted. Patient still persistent leukocytosis we will continue to monitor mild hypokalemia noted will replace with potassium. Also noted mild hypernatremia. Agree with holding tube feeds at this time 06/11: Discussed with nursing staff to change to history trickle feeds. Patient is planned for trach and PEG Saturday or Saturday. Continue current management als o discussed to hold heparin drip for planned procedure with noted timeframe. We will recheck labs to ensure correction of electrolytes. 06/12/21- Patient's status is unchanged. No significant events overnight. Plan for trach and PEG today. TF and heparin gtt on hold. Continue supportive care. Continue to monitor electrolytes, am labs ordered. 06/13/21- Patient is s/p trach and PEG. D/w surgery okay to use PEGTube and restart TF. Heparin gtt was also restarted per protocol. Persistent hypernat remia FWF increased for 48hrs, mild hyperkalemia noted no intervention at this time. Continue to monitor renal function and electrolytes, am labs ordered. 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 - Per Neuro 05/29 EEG no sign of seizures - Patient is off sedation, open eyes spontaneously, pupils reactive, with +gag and cough. - Not following commands, no movement to stimuli - Continue Keppra and PRN ativan for seizure - Continue Supportive care #CV: s/p Cardiac Arrest #AFIB with RVR- resolved #Hypertension - Remains SR on the monitor - Normotensive - Continue antihypertensives: Labetalol, Hydralazine, valsartan, & Doxazosin - PRN hydralazine for SBP> 160 - Continue AC- Heparin gtt per protocol, on hold today due to possible procedure - Cardio is following #Resp.: Acute Hypoxemic Respitaroy Failure s/p cardiac Arrest #Bilateral Lower Lobe Infiltrates- improved - 05/25 ETT- Vent setting: PRVC- 30%,8,9,450 - 05/29 CXR- improved lung aeration - 06/10 CXR- unchanged small pleural parenchymal opacities - Patient is tolerating breathing trial, continue daily SBT - ABG per [facility] - Continue supplemental O2 for SPO2 goal>90% - D/w [facility] rec Trach and PEG- [facility] discussed plan with family - [facility] spoke with Patient's son- Plan for Trach and PEG today - Surgery on consult - Case management for LTACH placement #GI: Abdominal distention possibly due to Constipation #Vomitting- resolved #Transaminitis - last documented BM 06/10 - 06/03 KUB showed no sign. abnormality - 06/09 KUB- mild gaseous distention of cornelius colon but no definitive bowel obstruction - Bowel Regimen- senokot, Miralax, Colace, and PRN Ducolax supp - TF on hold today for possible Trach and PEG - LFTs downtrending, continue to trend LFTs - Continue PPI- pecid #: Hyperkalemia - 06/06 K 5.7; X1 dose of kayexalate via NGT - 06/08 K 4.5 today - 06/09 K 5.2- X1 dose of kayexalate - Purewick in placed - Continue strict I&Os - Continue to monitor renal function and electrolytes, am labs ordered #ID: Leukocytosis #Sepsis- resolved #Bilateral Lower Lobe Infiltrates- improved - 05/25 Bcultx2-neg; 05/25 Tracheal aspirate-neg; 05/25 Urine cult- neg - 05/29 CXR- improved lung aeration - WBCs trending down; 06/06 Wbcs 15.7 06/07 Wbcs 21.5 - Leukocytosis down trending 15.5 today - 06/07 CRP 28.90 and procal 0.36 - Afebrile TMAX 99.6, not on pressors - d/w [facility] no abx at this time. - Continue to monitor- AM labs ordered #Endo: Hyperglycemia; H/o DM - Remains hyperglycemic - On high dose SSI Q6hrs - Continue Lantus QHS #DVT prophylaxis - SCDs to bilateral lower extremities while in bed - Continue AC- heparin gtt restarted The high probability of a clinically significant, sudden or life threatening deterioration of the [neuro, Pulmo, Respiratory] system(s) required my full and direct attention, intervention and personal management. The aggregate critical care time was [60] minutes. This time is in addition to time spent performing reported procedures but includes the following: [x] Data Review and interpretation [x] Patient assessment and monitoring of vital signs [x] Documentation [x] Medication orders and management Disposition Plan: ICU Total Time Spent with Patient (Minutes): 60 History Interval history: Patient seen and examined at the bedside. Remains on vent, awake and opening eyes spontaneously. S/p trach and PEG, no significant events overnight. Hospitalist Physical - Constitutional Vitals: Temp Pulse Resp BP Pulse Ox 99 F 80 13 131/63 99 06/13/21 12:00 06/13/21 13:05 06/13/21 11:44 06/13/21 13:05 06/13/21 11:44 General appearance: Present: no acute distress - EENT Eyes: Present: PERRL - Respiratory Respiratory effort: normal Respiratory: bilateral: diminished - Cardiovascular Rhythm: regular Heart Sounds: Present: S1 & S2 - Extremities Extremities: pulses intact, pulses symmetrical Extremity abnormal: edema - Peripheral Assessment Generalized Edema Type: Non-pitting Edema Degree: 1+ Capillary Refill: < 3 seconds Skin Temperature: Warm Peripheral Pulses: within normal limits - Abdominal General gastrointestinal: soft, non-tender, normal bowel sounds - Integumentary Integumentary: Present: warm, dry - Psychiatric Psychiatric: other (BJ) - Neurologic Neurologic: moves all extremities - Allied Health Allied health notes reviewed: nursing HEART Score - HEART Score Troponin: Troponin T 0.226 ng/mL (0.00-0.029) H* D 05/25/21 15:19 Results - Labs CBC & Chem 7: 06/13/21 04:34 06/13/21 04:34 Labs: Laboratory Last Values WBC 17.2 K/mm3 (4.5-11.0) H 06/13/21 04:34 RBC 2.56 M/mm3 (3.65-5.03) L 06/13/21 04:34 Hgb 8.6 gm/dl (10.1-14.3) L 06/13/21 04:34 Hct 26.1 % (30.3-42.9) L 06/13/21 04:34 MCV 102 fl (79-97) H 06/13/21 04:34 MCH 34 pg (28-32) H 06/13/21 04:34 MCHC 33 % (30-34) 06/13/21 04:34 RDW 14.9 % (13.2-15.2) 06/13/21 04:34 Plt Count 285 K/mm3 (140-440) 06/13/21 04:34 Lymph % (Auto) 14.3 % (13.4-35.0) 05/28/21 04:00 Otero % (Auto) 6.9 % (0.0-7.3) 05/28/21 04:00 Eos % (Auto) 0.1 % (0.0-4.3) 05/28/21 04:00 Baso % (Auto) 0.5 % (0.0-1.8) 05/28/21 04:00 Lymph # (Auto) 1.9 K/mm3 (1.2-5.4) 05/28/21 04:00 Otero # (Auto) 0.9 K/mm3 (0.0-0.8) H 05/28/21 04:00 Eos # (Auto) 0.0 K/mm3 (0.0-0.4) 05/28/21 04:00 Baso # (Auto) 0.1 K/mm3 (0.0-0.1) 05/28/21 04:00 Add Manual Diff Complete 06/08/21 04:25 Total Counted 100 06/08/21 04:25 Seg Neutrophils % 78.2 % (40.0-70.0) H 05/28/21 04:00 Seg Neuts % (Manual) 76.0 % (40.0-70.0) H 06/08/21 04:25 Band Neutrophils % 4.0 % 06/08/21 04:25 Lymphocytes % (Manual) 6.0 % (13.4-35.0) L 06/08/21 04:25 Monocytes % (Manual) 8.0 % (0.0-7.3) H 06/08/21 04:25 Eosinophils % (Manual) 1.0 % (0.0-4.3) 06/08/21 04:25 Metamyelocytes % 3.0 % 06/08/21 04:25 Myelocytes % 2.0 % 06/08/21 04:25 Nucleated RBC % Not Reportable 06/08/21 04:25 Seg Neutrophils # 10.6 K/mm3 (1.8-7.7) H 05/28/21 04:00 Seg Neutrophils # Man 12.0 K/mm3 (1.8-7.7) H 06/08/21 04:25 Band Neutrophils # 0.6 K/mm3 06/08/21 04:25 Lymphocytes # (Manual) 0.9 K/mm3 (1.2-5.4) L 06/08/21 04:25 Abs React Lymphs (Man) 0.0 K/mm3 06/08/21 04:25 Monocytes # (Manual) 1.3 K/mm3 (0.0-0.8) H 06/08/21 04:25 Eosinophils # (Manual) 0.2 K/mm3 (0.0-0.4) 06/08/21 04:25 Basophils # (Manual) 0.0 K/mm3 (0.0-0.1) 06/08/21 04:25 Metamyelocytes # 0.5 K/mm3 06/08/21 04:25 Myelocytes # 0.3 K/mm3 06/08/21 04:25 Promyelocytes # 0.0 K/mm3 06/08/21 04:25 Blast Cells # 0.0 K/mm3 06/08/21 04:25 WBC Morphology Not Reportable 06/08/21 04:25 Hypersegmented Neuts Not Reportable 06/08/21 04:25 Hyposegmented Neuts Not Reportable 06/08/21 04:25 Hypogranular Neuts Not Reportable 06/08/21 04:25 Smudge Cells Not Reportable 06/08/21 04:25 Toxic Granulation Not Reportable 06/08/21 04:25 Toxic Vacuolation Not Reportable 06/08/21 04:25 Dohle Bodies Not Reportable 06/08/21 04:25 Pelger-Huet Anomaly Not Reportable 06/08/21 04:25 Peter Rods Not Reportable 06/08/21 04:25 Platelet Estimate Consistent w auto 06/08/21 04:25 Clumped Platelets Not Reportable 06/08/21 04:25 Plt Clumps, EDTA Not Reportable 06/08/21 04:25 Large Platelets Not Reportable 06/08/21 04:25 Giant Platelets Not Reportable 06/08/21 04:25 Platelet Satelliting Not Reportable 06/08/21 04:25 Plt Morphology Comment Not Reportable 06/08/21 04:25 RBC Morphology Not Reportable 06/08/21 04:25 Dimorphic RBCs Not Reportable 06/08/21 04:25 Polychromasia Not Reportable 06/08/21 04:25 Hypochromasia Not Reportable 06/08/21 04:25 Poikilocytosis Not Reportable 06/08/21 04:25 Anisocytosis Not Reportable 06/08/21 04:25 Microcytosis Not Reportable 06/08/21 04:25 Macrocytosis Not Reportable 06/08/21 04:25 Spherocytes Not Reportable 06/08/21 04:25 Pappenheimer Bodies Not Reportable 06/08/21 04:25 Sickle Cells Not Reportable 06/08/21 04:25 Target Cells Not Reportable 06/08/21 04:25 Tear Drop Cells Not Reportable 06/08/21 04:25 Ovalocytes Not Reportable 06/08/21 04:25 Helmet Cells Not Reportable 06/08/21 04:25 [place] Bodies Not Reportable 06/08/21 04:25 [place] Rings Not Reportable 06/08/21 04:25 Lin Cells Not Reportable 06/08/21 04:25 Bite Cells Not Reportable 06/08/21 04:25 Crenated Cell Not Reportable 06/08/21 04:25 Elliptocytes Not Reportable 06/08/21 04:25 Acanthocytes (Spur) Not Reportable 06/08/21 04:25 Rouleaux Not Reportable 06/08/21 04:25 Hemoglobin C Crystals Not Reportable 06/08/21 04:25 Schistocytes Not Reportable 06/08/21 04:25 Malaria parasites Not Reportable 06/08/21 04:25 Shravan Bodies Not Reportable 06/08/21 04:25 Hem Pathologist Commnt No 06/08/21 04:25 PT 14.6 Sec. (12.2-14.9) 06/09/21 05:20 INR 1.09 (0.87-1.13) 06/09/21 05:20 APTT 25.4 Sec. (24.2-36.6) 06/13/21 10:44 D-Dimer > 16541 ng/mlDDU (0-234) H 05/25/21 09:21 Heparin Anti-Xa Level < 0.10 U.I./ml (0.3-0.7) L 06/13/21 10:44 ABG pH 7.455 (7.320-7.450) H 06/13/21 11:07 POC ABG pCO2 44.9 mmHg (32.0-48.0) 06/13/21 11:07 ABG pCO2 30.3 mm Hg 05/29/21 05:28 POC ABG pO2 85.2 mmHg (83-108) 06/13/21 11:07 ABG pO2 96.2 mm Hg (80.0-90.0) H 05/29/21 05:28 POC ABG HCO3 30.9 06/13/21 11:07 ABG HCO3 24.0 mmol/L (20.0-26.0) 05/29/21 05:28 ABG O2 Saturation 96.3 (0-100) 06/13/21 11:07 ABG O2 Content 10.3 (0.0-44) 05/29/21 05:28 POC ABG Base Excess 6.3 06/13/21 11:07 ABG Base Excess 1.2 mmol/L (-2.0-3.0) 05/29/21 05:28 ABG Hemoglobin 8.6 (12.0-17.5) L 06/13/21 11:07 ABG Oxyhemoglobin 94.9 (94-98) 06/13/21 11:07 ABG Carboxyhemoglobin 1.6 % (0.0-5.0) 05/29/21 05:28 ABG Methemoglobin 0.3 (0.0-1.5) 06/13/21 11:07 ABG Sodium 144.0 mmol/L (136.0-145.0) 06/13/21 11:07 ABG Potassium 4.7 mmol/L (3.40-4.50) H 06/13/21 11:07 ABG Chloride 107.0 mmol/L (98-107) 06/13/21 11:07 ABG Glucose 277 mg/dL (65-95) H 06/13/21 11:07 Oxyhemoglobin 96.0 % (95.0-99.0) 05/29/21 05: Carboxyhemoglobin 1.2 (0.5-1.5) 06/13/21 11:07 FiO2 30 % 05/29/21 05:28 FiO2 % 30 06/13/21 11:07 Sodium 149 mmol/L (137-145) H 06/13/21 04:34 Potassium 5.1 mmol/L (3.6-5.0) H 06/13/21 04:34 Chloride 106.6 mmol/L (98-107) 06/13/21 04:34 Carbon Dioxide 23 mmol/L (22-30) 06/13/21 04:34 Anion Gap 25 mmol/L 06/13/21 04:34 BUN 52 mg/dL (7-17) H 06/13/21 04:34 Creatinine 1.6 mg/dL (0.6-1.2) H 06/13/21 04:34 Estimated GFR 39 ml/min 06/13/21 04:34 BUN/Creatinine Ratio 33 % 06/13/21 04:34 Glucose 231 mg/dL (65-100) H 06/13/21 04:34 POC Glucose 241 mg/dL (70-105) H 06/13/21 12:07 Lactic Acid 2.30 mmol/L (0.7-2.0) H* 05/26/21 05:49 Calcium 8.5 mg/dL (8.4-10.2) 06/13/21 04:34 Magnesium 3.20 mg/dL (1.7-2.3) H 06/12/21 04:44 Ferritin 321.6 ng/mL (10.0-200.0) H 05/25/21 09:21 Total Bilirubin 0.50 mg/dL (0.1-1.2) 06/13/21 04:34 Direct Bilirubin < 0.2 mg/dL (0-0.2) 05/25/21 09:21 Indirect Bilirubin 0.2 mg/dL 05/25/21 09:21 AST 69 units/L (5-40) H 06/13/21 04:34 ALT 74 units/L (7-56) H 06/13/21 04:34 Alkaline Phosphatase 197 units/L (35-129) H 06/13/21 04:34 Lactate Dehydrogenase 445 units/L (91-180) H 05/25/21 09:21 Troponin T 0.226 ng/mL (0.00-0.029) H* D 05/25/21 15:19 C-Reactive Protein 28.90 mg/dL (0.00-1.30) H 06/07/21 14:52 NT-Pro-B Natriuret Pep 173.2 pg/mL (0-900) 05/25/21 09:21 Total Protein 7.5 g/dL (6.3-8.2) 06/13/21 04:34 Albumin 3.0 g/dL (3.9-5) L 06/13/21 04:34 Albumin/Globulin Ratio 0.7 % 06/13/21 04:34 Triglycerides 124 mg/dL (2-149) 05/30/21 11:19 Cholesterol 198 mg/dL (50-199) 05/25/21 15:19 LDL Cholesterol Direct 80 mg/dL (50-130) 05/25/21 15:19 HDL Cholesterol 64 mg/dL (40-59) H 05/25/21 15:19 Cholesterol/HDL Ratio 3.09 % 05/25/21 15:19 Procalcitonin 0.36 ng/mL (<0.15) 06/07/21 14:52 Arterial Blood Glucose 277 mg/dL (65-95) H 06/13/21 11:07 Arterial Blood Ionized Calcium 4.6 mg/dL (4.6-5.3) 06/02/21 04:13 Urine Color Straw (Yellow) 05/25/21 10:42 Urine Turbidity Clear (Clear) 05/25/21 10:42 Urine pH 6.0 (5.0-7.0) 05/25/21 10:42 Ur Specific [place] 1.007 (1.003-1.030) 05/25/21 10:42 Urine Protein 100 mg/dl mg/dL (Negative) 05/25/21 10:42 Urine Glucose (UA) >=500 mg/dL (Negative) 05/25/21 10:42 Urine Ketones Neg mg/dL (Negative) 05/25/21 10:42 Urine Blood Mod (Negative) 05/25/21 10:42 Urine Nitrite Neg (Negative) 05/25/21 10:42 Ur Reducing Substances Not Reportable 05/25/21 10:42 Urine Bilirubin Neg (Negative) 05/25/21 10:42 Urine Ictotest Not Reportable 05/25/21 10:42 Urine Urobilinogen < 2.0 mg/dL (<2.0) 05/25/21 10:42 Ur Leukocyte Esterase Neg (Negative) 05/25/21 10:42 Urine WBC (Auto) 11.0 /HPF (0.0-6.0) H 05/25/21 10:42 Urine RBC (Auto) 1.0 /HPF (0.0-6.0) 05/25/21 10:42 U Epithel Cells (Auto) < 1.0 /HPF (0-13.0) 05/25/21 10:42 Urine Bacteria (Auto) 4+ /HPF (Negative) 05/25/21 10:42 Urine Mucus Few /HPF 05/25/21 10:42 Coronavirus (PCR) Negative (Negative) 05/30/21 08:15 Blood Type O POSITIVE 05/25/21 14:07 Antibody Screen Negative 05/25/21 14:07 Tan/IV: Voiding Method External Female Catheter Active Medications - Current Medications Current Medications: Generic Name Dose Route Start Last Admin Trade Name Freq PRN Reason Stop Dose Admin Acetaminophen 650 mg 05/25/21 13:48 05/28/21 04:14 Acetaminophen 325 Mg Tab PO 650 mg Q6H PRN Administration Pain MILD(1-3)/Fever >100.5/SOTOMAYOR Lipase/Protease/Amylase 1 each 05/26/21 10:00 Lipase 10,500/Protease 25,000/Amylase 43,750 (Units) Dr Munguia FEEDTUBE PRN PRN For Clogged Feeding Tube Bisacodyl 10 mg 06/08/21 10:00 Bisacodyl 10 Mg Rect Supp VA QDAY PRN Constipation Dextrose 50 ml 05/28/21 14:28 Dextrose 50% In Water (25gm) 50 Ml Syringe IV Q30MIN PRN Hypoglycemia Protocol Docusate Sodium 100 mg 06/08/21 10:00 06/12/21 21:24 Docusate Sodium 100 Mg/10 Ml Oral Liqd PO Not Given BID ABDIRAHMAN Doxazosin Mesylate 2 mg 06/01/21 12:00 06/13/21 10:07 Doxazosin 1 Mg Tab PO 2 mg BID ABDIRAHMAN Administration Famotidine 20 mg 05/29/21 10:00 06/13/21 10:05 Famotidine 20 Mg Tab FEEDTUBE 20 mg BID ABDIRAHMAN Administration Glycopyrrolate 2 mg 06/01/21 09:00 06/13/21 13:04 Glycopyrrolate 2 Mg Tab PO 2 mg TID ABDIRAHMAN Administration Heparin Sodium (Porcine) 2,700 unit 05/25/21 13:41 05/30/21 17:46 Heparin 10,000 Units/10 Ml Vial 40 unit/kg (2700 unit) 2,520 unit IV Administration Q6H PRN Anti-Xa Assay < 0.1 units/ml Hydralazine HCl 10 mg 06/01/21 11:43 06/07/21 17:23 Hydralazine 20 Mg/1 Ml Inj IV 10 mg Q4HR PRN Administration SBP >160 Hydralazine HCl 50 mg 06/03/21 22:00 06/13/21 13:05 Hydralazine 25 Mg Tab PO 50 mg Q8HR ABDIRAHMAN Administration Hydrophilic Ointment 1 applic 05/25/21 19:04 Lip Therapy Vaseline TP Q2HR PRN Dry Lips Heparin Sodium/Sodium Chloride 25,000 unit in 500 mls @ 20 mls/hr 05/25/21 15:00 06/13/21 10:43 Heparin/ 0.45% Nacl-25,000 Unit/500 Ml IV 1,100 units/hr TITRATE ABDIRAHMAN 22 mls/hr Titration Protocol 1,000 UNITS/HR Insulin Glargine 25 units 06/09/21 22:00 06/13/21 10:06 Insulin Glargine 100 Units/Ml SUB-Q 25 units DAILY ABDIRAHMAN Administration Insulin Human Lispro 0 unit 05/29/21 12:00 06/13/21 13:09 Insulin Lispro 100 Unit/Ml SUB-Q 3 unit Q6HR ABDIRAHMAN Administration Protocol Labetalol HCl 300 mg 06/03/21 13:40 06/13/21 10:05 Labetalol 100 Mg Tab PO 300 mg BID ABDIRAHMAN Administration Levetiracetam 250 mg 06/01/21 22:00 06/13/21 10:06 Levetiracetam 500 Mg/5 Ml Oral Liqd FEEDTUBE 250 mg Q12HR ABDIRAHMAN Administration Metoclopramide HCl 5 mg 06/09/21 16:00 06/13/21 06:06 Metoclopramide 10 Mg/2 Ml Inj IV 5 mg Q6H ABDIRAHMAN Administration Multi-Ingred Cream/Lotion/Oil/Oint 1 applic 05/25/21 19:04 Mineral Oil/Petrolatum, White Ophth Oint 3.5 Gm OU Q4HR PRN Dry Eye(s) Polyethylene Glycol 17 gm 06/05/21 11:00 06/11/21 09:27 Polyethylene Glycol 3350 17 Gm Powder PO 17 gm QDAY ABDIRAHMAN Administration Senna/Docusate Sodium 1 tab 05/25/21 22:00 06/12/21 21:26 Sennosides/Docusate Sodium 8.6/50 Mg Tab FEEDTUBE Not Given BID ABDIRAHMAN Simple Syrup 15 ml 05/26/21 10:00 Simple Syrup 15 Ml FEEDTUBE PRN PRN Hypoglycemia Simple Syrup 30 ml 05/26/21 10:00 Simple Syrup 15 Ml FEEDTUBE PRN PRN Hypoglycemia Sodium Bicarbonate 325 mg 05/26/21 10:00 Sodium Bicarbonate 325 Mg Tab FEEDTUBE PRN PRN For Clogged Feeding Tube Sodium Chloride 10 ml 05/25/21 22:00 06/12/21 21:27 Sodium Chloride 0.9% 10 Ml Flush Syringe IV 10 ml BID ABDIRAHMAN Administration Sodium Chloride 10 ml 05/25/21 13:48 06/04/21 03:57 Sodium Chloride 0.9% 10 Ml Flush Syringe IV 10 ml PRN PRN Administration LINE FLUSH Valsartan 160 mg 06/11/21 10:00 06/13/21 10:05 Valsartan 160mg Tab PO 160 mg BID ABDIRAHMAN Administration Nutrition/Malnutrition Assess - Dietary Evaluation Nutrition/Malnutrition Findings: Nutrition Notes Start: 05/26/21 09:00 Freq: Status: Active Protocol: Document 06/13/21 10:34 GB (Rec: 06/13/21 10:47 GB [id number]) Nutrition Notes Need for Assessment generated from: MD Order Initial or Follow up Reassessment Current Diagnosis COPD,Diabetes,Sepsis, Hypertension,Respiratory Failure Other Pertinent Diagnosis cardiac arrest, seizure disorder, (06/12: Trach/PEG) Labs/Tests 06/13: Na 149, K 5.1, BUN 52, creatinine 1.6, glucose 231, AST 69, ALT 74, AlkP 197 Pertinent Medications NaCl Height 5 ft 4 in Weight 63 kg [place] Body Weight (kg) 54.54 BMI 23.8 Weight change and time frame -6.6% since admission No new weights after 06/07 Weight Status Appropriate Subjective/Other Information 06/12: Trach/PEG 06/12: TF formula changed to glucerna 1.2 r/t altered labs and now with trach/peg Last BM 10/2 Percent of energy/protein needs met: TF goal rate meets 75% or greater of estimated energy needs Burn Absent Trauma Absent GI Symptoms None Difficulty In Swallowing Food Allergy No Current % PO Other Minimum of two criteria No #1 Nutrition Diagnosis Inadequate oral intake Comments: 06/02: On vent. TF continues. 06/07: Ventilation continues, TF continues. 06/13: Trach/PEG on 06/12, change formula to glucerna 1.2 Etiology ARF As Evidenced by Signs and Symptoms pt on vent and unable to consume PO Diagnosis Progress(for reassessment Continues documentation) Is patient on ventilator? Yes Is Patient Ambulatory and/or Out of Bed No REE-([place]-confined to bed) 1385.676 Kcal/Kg value to use for calculation 23 Approximate Energy Requirements Using 1449 kcal/Kg Calculation Used for Recommendations Kcal/kg Additional Notes Protein: (1-1.5g/kg @63kg) 63- 95g Fluid: 1 ml/kcal or per MD Nutrition Intervention Change Diet Order: Continue NPO Nutrition Support: Vital AF 1.2 at 50 ml/hr Flush 75 ml q4h 06/07: continues 06/13: Trach/PEG on 06/12, change formula to glucerna 1.2 Kcal 1,440 Protein (gm) 72 Fat (gm) 72 Fluid (mL) 966 Goal #1 Meet 75% or greater of protein and energy needs via TF 06/13: TF at goal meets 100% estimated energy needs: met, continues Goal #2 Change TF formula. Complete current vital 1.2 bottle, change to glucerna 1.2 r/t DM and related lab results Follow-Up By: 06/19/21 Additional Comments f/u: formula change to glucerna 1.2, at goal 50ml/hr, weight, labs
[2021-06-13] MEDS: HEPARIN 10,000 UNITS/10 ML VIAL IV PRN (15:20)
[2021-06-13] MEDS: HEPARIN/ 0.45% NACL DRIP 25,000 UNIT/500 ML BAG IV SCH (17:12)
[2021-06-13] MEDS: POLYETHYLENE GLYCOL 3350 17 GM POWDER PO SCH (17:13)
[2021-06-13] MEDS: DOCUSATE SODIUM 100 MG/10 ML ORAL LIQD PO SCH ×2 (17:13→21:54)
[2021-06-13] MEDS: SENNOSIDES/DOCUSATE SODIUM 8.6/50 MG TAB FEEDTUBE SCH ×2 (17:14→21:57)
[2021-06-14] MEDS: INSULIN LISPRO 100 UNIT/ML SUB-Q SCH ×4 (01:05→17:18)
--- NOTE | 2021-06-14 04:05 | XRay Report ---
CHEST 1 VIEW INDICATION / CLINICAL INFORMATION: Pneumonia; Tracheostomy placement. FINDINGS: SUPPORT DEVICES: Interval placement of tracheostomy tube. The patient is rotated. HEART / MEDIASTINUM: The cardiomediastinal silhouette has not significantly changed in the interim. LUNGS / PLEURA: Bilateral airspace pneumonia unchanged from 06/10/2021 Signer Name: Zach Onofre MD Signed: 06/14/2021 4:00 AM Workstation Name: [id number]
[2021-06-14] MEDS: METOCLOPRAMIDE 10 MG/2 ML INJ IV SCH ×2 (04:30→09:26)
[2021-06-14 05:17] LABS: Hematocrit 22.9 % (30.3-42.9); Hemoglobin 7.6 gm/dl (10.1-14.3); Mean Corpuscular HGB Conc 33 % (30-34); Mean Corpuscular Volume 101 fl (79-97); Platelet Count 226 K/mm3 (140-440); Red Blood Count 2.26 M/mm3 (3.65-5.03); Red Cell Distribution Width 15.3 % (13.2-15.2)
[2021-06-14 05:30] LABS: Calcium 8.8 mg/dL (8.4-10.2)
[2021-06-14] MEDS: hydrALAZINE 25 MG TAB PO SCH ×3 (05:45→21:54)
[2021-06-14] MEDS: levETIRAcetam 500 MG/5 ML ORAL LIQD FEEDTUBE SCH ×2 (09:19→21:55)
[2021-06-14] MEDS: GLYCOPYRROLATE 2 MG TAB PO SCH ×4 (09:20→19:56)
[2021-06-14] MEDS: SENNOSIDES/DOCUSATE SODIUM 8.6/50 MG TAB FEEDTUBE SCH (09:20)
[2021-06-14] MEDS: POLYETHYLENE GLYCOL 3350 17 GM POWDER PO SCH (09:20)
[2021-06-14] MEDS: DOCUSATE SODIUM 100 MG/10 ML ORAL LIQD PO SCH (09:21)
[2021-06-14] MEDS: DOXAZOSIN 1 MG TAB PO SCH ×2 (09:21→21:55)
[2021-06-14] MEDS: FAMOTIDINE 20 MG TAB FEEDTUBE SCH ×2 (09:21→21:53)
[2021-06-14] MEDS: INSULIN GLARGINE 100 UNITS/ML SUB-Q SCH (09:22)
[2021-06-14] MEDS: VALSARTAN 160MG TAB PO SCH ×2 (09:31→21:55)
--- NOTE | 2021-06-14 12:47 | Progress Note ---
Assessment and Plan Acute hypoxemic respiratory failure on MVS Cardiopulmonary arrest wtih ROSC Seizure disorder Sepsis Toxic metabolic encephalopathy, possible anoxia Atrial fibrillation with RVR Metabolic acidosis Bilateral lower lobe infiltrates - continue SBT's as tolerated - begin t-piece trials in am as tolerated - transition to oral anticoagulation - continue care as below otherwise; - LTAC evaluation is appropriate - azotemia per nephrology team (non-oliguric) - daily SAT and SBT assessment as tolerated - continue to wean supplemental oxygen for target O2 sat's > 90% acutely - VAP bundle addressed - continue lung protective strategies - continue bronchodilators with pulmonary hygiene per RT - wean per pulmonary driven protocols otherwise - continue accuchecks with glycemic control per SSI (While critically ill target blood glucose of 140-180 mg/dL; avoid hypoglycemia) - sedation prn for target RASS 0 to -1 - avoid nephrotoxins, renally dose all medications - continue scopolamine for secretion control - continue Keppra as AED - continue to avoid benzodiazepine's, reduce the possibility of delirium - AB's per ID rec's - prn analgesia per CPOT score - Maintenance of sleep-wake cycle, avoid delirium - continue enteral nutritional support at goal rate as tolerated - G.I. & VTE prophylaxis - PT/OT/ROM exercises - continue mobility protocols for pressure ulcer prophylaxis - Monitor hemodynamics closely - continue other care per attending / other consultants - discharge planning ongoing concurrently COVID SPECIFIC INTERVENTIONS - COVID-19 PCR negative .... Re-evaluate in am & prn CONDITION: CRITICAL PROGNOSIS: GUARDED CODE STATUS: FULL CODE The high probability of a clinically significant, sudden or life-threatening deterioration of the [respiratory, cardiovascular, renal & neurologic] system(s) required my full and direct attention, intervention and personal management. The aggregate critical care time was [32] minutes without overlap. Time includes spent on; [x] Data Review and interpretation [x] Patient assessment and monitoring of vital signs [x] Documentation [x] Medication orders and management Subjective Date of service: 06/14/21 Principal diagnosis: Ac hypoxemic resp failure; Cardiac arrest; Seizures; Sepsis; AMS; A-Fib RVR Interval history: Patient is seen today for: Acute hypoxemic respiratory failure; Cardiac arrest wtih ROSC; Seizure disorder; Sepsis; AMS; A-Fib with RVR Seen and examined at bedside; 24hour events reviewed; nursing and respiratory care staff consulted; no adverse overnight events reported to me; resting in bed; remains on MVS; on SBT and tolerating well; AMS is persistent; no gross b leeding on IV heparin Objective Vital Signs - 12hr 06/14/21 06/14/21 06/14/21 01:00 01:31 02:01 Temperature Pulse Rate 86 85 79 Pulse Rate [ From Monitor] Respiratory 15 14 12 Rate Blood Pressure 137/66 133/63 107/47 O2 Sat by Pulse 100 100 99 Oximetry 06/14/21 06/14/21 06/14/21 02:30 03:00 03:30 Temperature Pulse Rate 92 H 87 88 Pulse Rate [ From Monitor] Respiratory 17 15 15 Rate Blood Pressure 140/65 136/59 134/57 O2 Sat by Pulse 100 100 99 Oximetry 06/14/21 06/14/21 06/14/21 03:51 04:00 04:30 Temperature 98.6 F Pulse Rate 85 98 H Pulse Rate [ 75 From Monitor] Respiratory 14 14 Rate Blood Pressure 134/60 145/77 O2 Sat by Pulse 98 100 Oximetry 06/14/21 06/14/21 06/14/21 05:01 05:30 05:45 Temperature Pulse Rate 95 H 82 81 Pulse Rate [ From Monitor] Respiratory 19 25 H Rate Blood Pressure 159/77 144/57 144/57 O2 Sat by Pulse 100 100 Oximetry 06/14/21 06/14/21 06/14/21 06:00 06:30 07:00 Temperature Pulse Rate 79 75 86 Pulse Rate [ From Monitor] Respiratory 13 12 18 Rate Blood Pressure 134/54 127/48 147/59 O2 Sat by Pulse 100 99 100 Oximetry 06/14/21 06/14/21 06/14/21 07:03 07:30 08:00 Temperature 100.0 F H Pulse Rate 89 81 Pulse Rate [ From Monitor] Respiratory 24 13 Rate Blood Pressure 126/63 128/53 O2 Sat by Pulse 99 99 Oximetry 06/14/21 06/14/21 06/14/21 08:09 08:10 08:30 Temperature Pulse Rate 94 H 84 Pulse Rate [ From Monitor] Respiratory 20 Rate Blood Pressure 128/53 151/60 O2 Sat by Pulse 100 98 100 Oximetry 06/14/21 06/14/21 06/14/21 09:00 09:20 09:21 Temperature Pulse Rate 85 79 79 Pulse Rate [ From Monitor] Respiratory 21 Rate Blood Pressure 148/59 148/59 148/59 O2 Sat by Pulse 100 Oximetry 06/14/21 06/14/21 06/14/21 09:31 10:00 10:30 Temperature Pulse Rate 91 H 86 85 Pulse Rate [ From Monitor] Respiratory 25 H 21 23 Rate Blood Pressure 164/60 170/67 156/64 O2 Sat by Pulse 100 100 99 Oximetry 06/14/21 12:31 Temperature 98.6 F Pulse Rate Pulse Rate [ From Monitor] Respiratory Rate Blood Pressure O2 Sat by Pulse Oximetry Constitutional: appears uncomfortable, other (elderly female with mildly increased respiratory effort at rest on MVS) Eyes: non-icteric ENT: oropharynx moist, other (+ midline tracheostomy with mild secretions) Neck: supple, no lymphadenopathy Effort: mildly labored Ascultation: Bilateral: diminished breath sounds, rhonchi (scant) Percussion: Bilateral: not dull Cardiovascular: regular rate and rhythm, other (S1,S2) Gastrointestinal: normoactive bowel sounds, soft, non-tender, non-distended (protuberant), other (+ PEG tube) Integumentary: normal Extremities: no cyanosis, pulses normal, no ischemia or petechiae, other (Right femoral CVL) Neurologic: pupils equal and round, unable to assess, other (encephalopathic) Psychiatric: other (unable to assess) CBC and BMP: 06/15/21 05:08 06/15/21 05:08 ABG, PT/INR, D-dimer: ABG ABG pH 7.455 (7.320-7.450) H 06/13/21 11:07 POC ABG pCO2 44.9 mmHg (32.0-48.0) 06/13/21 11:07 ABG pCO2 30.3 mm Hg 05/29/21 05:28 POC ABG pO2 85.2 mmHg (83-108) 06/13/21 11:07 ABG pO2 96.2 mm Hg (80.0-90.0) H 05/29/21 05:28 POC ABG HCO3 30.9 06/13/21 11:07 ABG O2 Saturation 96.3 (0-100) 06/13/21 11:07 PT/INR, D-dimer PT 14.6 Sec. (12.2-14.9) 06/09/21 05:20 INR 1.09 (0.87-1.13) 06/09/21 05:20 D-Dimer > 50942 ng/mlDDU (0-234) H 05/25/21 09:21 Abnormal lab findings: Abnormal Labs 05/25/21 05/25/21 05/25/21 09:07 09:21 09:21 WBC 17.1 H RBC Hgb Hct MCV 106 H MCH 33 H MCHC RDW 15.6 H [place] # (Auto) Seg Neutrophils % Seg Neuts % (Manual) Lymphocytes % (Manual) Monocytes % (Manual) Seg Neutrophils # Seg Neutrophils # Man 10.1 H Lymphocytes # (Manual) 5.6 H Monocytes # (Manual) PT 15.0 H APTT 44.3 H D-Dimer > 33784 H Heparin Anti-Xa Level ABG pH 7.116 L POC ABG pCO2 POC ABG pO2 ABG pO2 ABG Hemoglobin ABG Oxyhemoglobin 93.7 L ABG Sodium ABG Potassium ABG Chloride ABG Glucose 395 H Carboxyhemoglobin Sodium Potassium Chloride Carbon Dioxide BUN Creatinine Glucose POC Glucose Lactic Acid Calcium Magnesium Ferritin AST ALT Alkaline Phosphatase Lactate Dehydrogenase Troponin T C-Reactive Protein Total Protein Albumin HDL Cholesterol Arterial Blood Glucose 395 H Arterial Blood Ionized Calcium 4.4 L Urine WBC (Auto) 05/25/21 05/25/21 05/25/21 09:21 09:21 09:21 WBC RBC Hgb Hct MCV MCH MCHC RDW [place] # (Auto) Seg Neutrophils % Seg Neuts % (Manual) Lymphocytes % (Manual) Monocytes % (Manual) Seg Neutrophils # Seg Neutrophils # Man Lymphocytes # (Manual) Monocytes # (Manual) PT APTT D-Dimer Heparin Anti-Xa Level ABG pH POC ABG pCO2 POC ABG pO2 ABG pO2 ABG Hemoglobin ABG Oxyhemoglobin ABG Sodium ABG Potassium ABG Chloride ABG Glucose Carboxyhemoglobin Sodium Potassium Chloride Carbon Dioxide 10 L BUN Creatinine Glucose 423 H 424 H POC Glucose Lactic Acid Calcium 8.2 L Magnesium Ferritin 321.6 H AST 162 H ALT 119 H Alkaline Phosphatase Lactate Dehydrogenase 445 H Troponin T C-Reactive Protein Total Protein 5.6 L Albumin 3.2 L HDL Cholesterol Arterial Blood Glucose Arterial Blood Ionized Calcium Urine WBC (Auto) 05/25/21 05/25/21 05/25/21 09:35 10:42 11:12 WBC RBC Hgb Hct MCV MCH MCHC RDW [place] # (Auto) Seg Neutrophils % Seg Neuts % (Manual) Lymphocytes % (Manual) Monocytes % (Manual) Seg Neutrophils # Seg Neutrophils # Man Lymphocytes # (Manual) Monocytes # (Manual) PT APTT D-Dimer Heparin Anti-Xa Level ABG pH POC ABG pCO2 POC ABG pO2 ABG pO2 ABG Hemoglobin ABG Oxyhemoglobin ABG Sodium ABG Potassium ABG Chloride ABG Glucose Carboxyhemoglobin Sodium Potassium Chloride Carbon Dioxide BUN Creatinine Glucose POC Glucose Lactic Acid 16.70 H* 7.70 H* Calcium Magnesium Ferritin AST ALT Alkaline Phosphatase Lactate Dehydrogenase Troponin T C-Reactive Protein Total Protein Albumin HDL Cholesterol Arterial Blood Glucose Arterial Blood Ionized Calcium Urine WBC (Auto) 11.0 H 05/25/21 05/25/21 05/25/21 14:07 15:19 19:04 WBC RBC Hgb Hct MCV MCH MCHC RDW [place] # (Auto) Seg Neutrophils % Seg Neuts % (Manual) Lymphocytes % (Manual) Monocytes % (Manual) Seg Neutrophils # Seg Neutrophils # Man Lymphocytes # (Manual) Monocytes # (Manual) PT APTT D-Dimer Heparin Anti-Xa Level ABG pH POC ABG pCO2 POC ABG pO2 172.2 H ABG pO2 ABG Hemoglobin ABG Oxyhemoglobin 98.7 H ABG Sodium 135.7 L ABG Potassium ABG Chloride ABG Glucose 255 H Carboxyhemoglobin 0.3 L Sodium Potassium Chloride Carbon Dioxide BUN Creatinine Glucose POC Glucose Lactic Acid 3.90 H* Calcium Magnesium Ferritin AST ALT Alkaline Phosphatase Lactate Dehydrogenase Troponin T 0.226 H* D C-Reactive Protein Total Protein Albumin HDL Cholesterol 64 H Arterial Blood Glucose 255 H Arterial Blood Ionized Calcium 3.8 L Urine WBC (Auto) 05/25/21 05/25/21 05/26/21 21:16 21:16 04:00 WBC RBC Hgb Hct MCV MCH MCHC RDW [place] # (Auto) Seg Neutrophils % Seg Neuts % (Manual) Lymphocytes % (Manual) Monocytes % (Manual) Seg Neutrophils # Seg Neutrophils # Man Lymphocytes # (Manual) Monocytes # (Manual) PT APTT D-Dimer Heparin Anti-Xa Level 1.19 H ABG pH 7.547 H POC ABG pCO2 POC ABG pO2 ABG pO2 ABG Hemoglobin 11.9 L ABG Oxyhemoglobin ABG Sodium 133.2 L ABG Potassium 3.1 L ABG Chloride ABG Glucose 243 H Carboxyhemoglobin 0.3 L Sodium Potassium Chloride Carbon Dioxide BUN Creatinine Glucose POC Glucose Lactic Acid 2.50 H* Calcium Magnesium Ferritin AST ALT Alkaline Phosphatase Lactate Dehydrogenase Troponin T C-Reactive Protein Total Protein Albumin HDL Cholesterol Arterial Blood Glucose 243 H Arterial Blood Ionized Calcium Urine WBC (Auto) 05/26/21 05/26/21 05/26/21 05:49 05:49 17:33 WBC RBC Hgb Hct MCV MCH MCHC RDW [place] # (Auto) Seg Neutrophils % Seg Neuts % (Manual) Lymphocytes % (Manual) Monocytes % (Manual) Seg Neutrophils # Seg Neutrophils # Man Lymphocytes # (Manual) Monocytes # (Manual) PT APTT D-Dimer Heparin Anti-Xa Level ABG pH POC ABG pCO2 POC ABG pO2 ABG pO2 ABG Hemoglobin ABG Oxyhemoglobin ABG Sodium ABG Potassium ABG Chloride ABG Glucose Carboxyhemoglobin Sodium Potassium Chloride Carbon Dioxide BUN Creatinine Glucose 226 H POC Glucose 156 H Lactic Acid 2.30 H* Calcium 7.2 L Magnesium Ferritin AST 111 H ALT 97 H Alkaline Phosphatase Lactate Dehydrogenase Troponin T C-Reactive Protein Total Protein 5.4 L Albumin 3.3 L HDL Cholesterol Arterial Blood Glucose Arterial Blood Ionized Calcium Urine WBC (Auto) 05/27/21 05/27/21 05/27/21 02:11 02:11 02:11 WBC 14.3 H RBC 3.27 L Hgb Hct MCV 99 H MCH 33 H MCHC RDW 15.3 H [place] # (Auto) 1.0 H Seg Neutrophils % Seg Neuts % (Manual) Lymphocytes % (Manual) Monocytes % (Manual) Seg Neutrophils # 10.0 H Seg Neutrophils # Man Lymphocytes # (Manual) Monocytes # (Manual) PT APTT D-Dimer Heparin Anti-Xa Level 0.80 H ABG pH POC ABG pCO2 POC ABG pO2 ABG pO2 ABG Hemoglobin ABG Oxyhemoglobin ABG Sodium ABG Potassium ABG Chloride ABG Glucose Carboxyhemoglobin Sodium Potassium 2.9 L* D Chloride Carbon Dioxide 31 H BUN 6 L Creatinine Glucose 215 H POC Glucose Lactic Acid Calcium 8.1 L Magnesium Ferritin AST ALT Alkaline Phosphatase Lactate Dehydrogenase Troponin T C-Reactive Protein Total Protein Albumin HDL Cholesterol Arterial Blood Glucose Arterial Blood Ionized Calcium Urine WBC (Auto) 05/27/21 05/27/21 05/27/21 11:24 12:49 18:06 WBC RBC Hgb Hct MCV MCH MCHC RDW [place] # (Auto) Seg Neutrophils % Seg Neuts % (Manual) Lymphocytes % (Manual) Monocytes % (Manual) Seg Neutrophils # Seg Neutrophils # Man Lymphocytes # (Manual) Monocytes # (Manual) PT APTT D-Dimer Heparin Anti-Xa Level ABG pH POC ABG pCO2 POC ABG pO2 ABG pO2 ABG Hemoglobin ABG Oxyhemoglobin ABG Sodium ABG Potassium ABG Chloride ABG Glucose Carboxyhemoglobin Sodium Potassium Chloride Carbon Dioxide BUN Creatinine Glucose POC Glucose 151 H 165 H 137 H Lactic Acid Calcium Magnesium Ferritin AST ALT Alkaline Phosphatase Lactate Dehydrogenase Troponin T C-Reactive Protein Total Protein Albumin HDL Cholesterol Arterial Blood Glucose Arterial Blood Ionized Calcium Urine WBC (Auto) 05/28/21 05/28/21 05/28/21 04:00 04:00 06:02 WBC 13.5 H RBC 3.05 L Hgb Hct MCV 100 H MCH 34 H MCHC RDW [place] # (Auto) 0.9 H Seg Neutrophils % 78.2 H Seg Neuts % (Manual) Lymphocytes % (Manual) Monocytes % (Manual) Seg Neutrophils # 10.6 H Seg Neutrophils # Man Lymphocytes # (Manual) Monocytes # (Manual) PT APTT D-Dimer Heparin Anti-Xa Level ABG pH 7.507 H POC ABG pCO2 POC ABG pO2 ABG pO2 ABG Hemoglobin 10.6 L ABG Oxyhemoglobin ABG Sodium 129.4 L ABG Potassium ABG Chloride ABG Glucose 243 H Carboxyhemoglobin 0.2 L Sodium 136 L D Potassium Chloride Carbon Dioxide BUN Creatinine Glucose 215 H POC Glucose Lactic Acid Calcium Magnesium Ferritin AST ALT Alkaline Phosphatase Lactate Dehydrogenase Troponin T C-Reactive Protein Total Protein Albumin HDL Cholesterol Arterial Blood Glucose 243 H Arterial Blood Ionized Calcium 4.1 L Urine WBC (Auto) 05/28/21 05/28/21 05/29/21 11:27 23:02 04:30 WBC RBC Hgb 9.3 L Hct 26.7 L MCV MCH MCHC RDW [place] # (Auto) Seg Neutrophils % Seg Neuts % (Manual) Lymphocytes % (Manual) Monocytes % (Manual) Seg Neutrophils # Seg Neutrophils # Man Lymphocytes # (Manual) Monocytes # (Manual) PT APTT D-Dimer Heparin Anti-Xa Level ABG pH POC ABG pCO2 POC ABG pO2 ABG pO2 ABG Hemoglobin ABG Oxyhemoglobin ABG Sodium ABG Potassium ABG Chloride ABG Glucose Carboxyhemoglobin Sodium Potassium Chloride Carbon Dioxide BUN Creatinine Glucose POC Glucose 220 H 212 H Lactic Acid Calcium Magnesium Ferritin AST ALT Alkaline Phosphatase Lactate Dehydrogenase Troponin T C-Reactive Protein Total Protein Albumin HDL Cholesterol Arterial Blood Glucose Arterial Blood Ionized Calcium Urine WBC (Auto) 05/29/21 05/29/21 05/29/21 05:02 05:28 12:55 WBC RBC Hgb Hct MCV MCH MCHC RDW [place] # (Auto) Seg Neutrophils % Seg Neuts % (Manual) Lymphocytes % (Manual) Monocytes % (Manual) Seg Neutrophils # Seg Neutrophils # Man Lymphocytes # (Manual) Monocytes # (Manual) PT APTT D-Dimer Heparin Anti-Xa Level ABG pH 7.516 H POC ABG pCO2 POC ABG pO2 ABG pO2 96.2 H ABG Hemoglobin 7.5 L ABG Oxyhemoglobin ABG Sodium ABG Potassium ABG Chloride ABG Glucose Carboxyhemoglobin Sodium Potassium Chloride Carbon Dioxide BUN Creatinine Glucose POC Glucose 197 H 251 H Lactic Acid Calcium Magnesium Ferritin AST ALT Alkaline Phosphatase Lactate Dehydrogenase Troponin T C-Reactive Protein Total Protein Albumin HDL Cholesterol Arterial Blood Glucose Arterial Blood Ionized Calcium Urine WBC (Auto) 05/29/21 05/29/21 05/30/21 18:23 23:31 04:10 WBC RBC Hgb Hct MCV MCH MCHC RDW [place] # (Auto) Seg Neutrophils % Seg Neuts % (Manual) Lymphocytes % (Manual) Monocytes % (Manual) Seg Neutrophils # Seg Neutrophils # Man Lymphocytes # (Manual) Monocytes # (Manual) PT APTT D-Dimer Heparin Anti-Xa Level ABG pH 7.532 H POC ABG pCO2 30.0 L POC ABG pO2 78.5 L ABG pO2 ABG Hemoglobin 11.3 L ABG Oxyhemoglobin ABG Sodium 126.7 L ABG Potassium ABG Chloride 94.0 L ABG Glucose 270 H Carboxyhemoglobin 0.4 L Sodium Potassium Chloride Carbon Dioxide BUN Creatinine Glucose POC Glucose 236 H 252 H Lactic Acid Calcium Magnesium Ferritin AST ALT Alkaline Phosphatase Lactate Dehydrogenase Troponin T C-Reactive Protein Total Protein Albumin HDL Cholesterol Arterial Blood Glucose 270 H Arterial Blood Ionized Calcium 4.4 L Urine WBC (Auto) 05/30/21 05/30/21 05/30/21 05:06 06:23 11:15 WBC RBC Hgb Hct MCV MCH MCHC RDW [place] # (Auto) Seg Neutrophils % Seg Neuts % (Manual) Lymphocytes % (Manual) Monocytes % (Manual) Seg Neutrophils # Seg Neutrophils # Man Lymphocytes # (Manual) Monocytes # (Manual) PT APTT D-Dimer Heparin Anti-Xa Level ABG pH POC ABG pCO2 POC ABG pO2 ABG pO2 ABG Hemoglobin ABG Oxyhemoglobin ABG Sodium ABG Potassium ABG Chloride ABG Glucose Carboxyhemoglobin Sodium 126 L D Potassium Chloride 91.9 L Carbon Dioxide 20 L D BUN Creatinine 0.4 L Glucose 274 H POC Glucose 242 H 346 H Lactic Acid Calcium Magnesium Ferritin AST ALT Alkaline Phosphatase Lactate Dehydrogenase Troponin T C-Reactive Protein Total Protein Albumin HDL Cholesterol Arterial Blood Glucose Arterial Blood Ionized Calcium Urine WBC (Auto) 05/30/21 05/30/21 05/30/21 11:19 11:19 11:19 WBC 18.9 H RBC 3.36 L Hgb Hct MCV 102 H MCH 33 H MCHC RDW 15.5 H [place] # (Auto) Seg Neutrophils % Seg Neuts % (Manual) Lymphocytes % (Manual) Monocytes % (Manual) Seg Neutrophils # Seg Neutrophils # Man Lymphocytes # (Manual) Monocytes # (Manual) PT APTT D-Dimer Heparin Anti-Xa Level < 0.10 L ABG pH POC ABG pCO2 POC ABG pO2 ABG pO2 ABG Hemoglobin ABG Oxyhemoglobin ABG Sodium ABG Potassium ABG Chloride ABG Glucose Carboxyhemoglobin Sodium 124 L Potassium Chloride Carbon Dioxide BUN Creatinine Glucose POC Glucose Lactic Acid Calcium Magnesium Ferritin AST ALT Alkaline Phosphatase Lactate Dehydrogenase Troponin T C-Reactive Protein Total Protein Albumin HDL Cholesterol Arterial Blood Glucose Arterial Blood Ionized Calcium Urine WBC (Auto) 05/30/21 05/30/21 05/31/21 17:02 23:27 03:37 WBC RBC Hgb Hct MCV MCH MCHC RDW [place] # (Auto) Seg Neutrophils % Seg Neuts % (Manual) Lymphocytes % (Manual) Monocytes % (Manual) Seg Neutrophils # Seg Neutrophils # Man Lymphocytes # (Manual) Monocytes # (Manual) PT APTT D-Dimer Heparin Anti-Xa Level ABG pH POC ABG pCO2 POC ABG pO2 ABG pO2 ABG Hemoglobin 11.6 L ABG Oxyhemoglobin ABG Sodium 130.0 L ABG Potassium ABG Chloride 95.0 L ABG Glucose 292 H Carboxyhemoglobin Sodium Potassium Chloride Carbon Dioxide BUN Creatinine Glucose POC Glucose 270 H 237 H Lactic Acid Calcium Magnesium Ferritin AST ALT Alkaline Phosphatase Lactate Dehydrogenase Troponin T C-Reactive Protein Total Protein Albumin HDL Cholesterol Arterial Blood Glucose 292 H Arterial Blood Ionized Calcium Urine WBC (Auto) 05/31/21 05/31/21 05/31/21 04:00 04:00 05:20 WBC 20.9 H RBC 3.13 L Hgb Hct MCV 99 H MCH 34 H MCHC RDW [place] # (Auto) Seg Neutrophils % Seg Neuts % (Manual) 81.0 H Lymphocytes % (Manual) 8.0 L Monocytes % (Manual) 9.0 H Seg Neutrophils # Seg Neutrophils # Man 16.9 H Lymphocytes # (Manual) Monocytes # (Manual) 1.9 H PT APTT D-Dimer Heparin Anti-Xa Level ABG pH POC ABG pCO2 POC ABG pO2 ABG pO2 ABG Hemoglobin ABG Oxyhemoglobin ABG Sodium ABG Potassium ABG Chloride ABG Glucose Carboxyhemoglobin Sodium 133 L D Potassium Chloride 95.4 L Carbon Dioxide 21 L BUN 30 H Creatinine 0.5 L Glucose 305 H POC Glucose 269 H Lactic Acid Calcium Magnesium Ferritin AST ALT Alkaline Phosphatase Lactate Dehydrogenase Troponin T C-Reactive Protein Total Protein Albumin HDL Cholesterol Arterial Blood Glucose Arterial Blood Ionized Calcium Urine WBC (Auto) 05/31/21 05/31/21 05/31/21 11:40 18:16 23:25 WBC RBC Hgb Hct MCV MCH MCHC RDW [place] # (Auto) Seg Neutrophils % Seg Neuts % (Manual) Lymphocytes % (Manual) Monocytes % (Manual) Seg Neutrophils # Seg Neutrophils # Man Lymphocytes # (Manual) Monocytes # (Manual) PT APTT D-Dimer Heparin Anti-Xa Level ABG pH POC ABG pCO2 POC ABG pO2 ABG pO2 ABG Hemoglobin ABG Oxyhemoglobin ABG Sodium ABG Potassium ABG Chloride ABG Glucose Carboxyhemoglobin Sodium Potassium Chloride Carbon Dioxide BUN Creatinine Glucose POC Glucose 364 H 250 H 231 H Lactic Acid Calcium Magnesium Ferritin AST ALT Alkaline Phosphatase Lactate Dehydrogenase Troponin T C-Reactive Protein Total Protein Albumin HDL Cholesterol Arterial Blood Glucose Arterial Blood Ionized Calcium Urine WBC (Auto) 06/01/21 06/01/21 06/01/21 04:03 04:58 04:58 WBC 20.7 H RBC 3.20 L Hgb Hct MCV 99 H MCH 34 H MCHC RDW [place] # (Auto) Seg Neutrophils % Seg Neuts % (Manual) 82.0 H Lymphocytes % (Manual) 9.0 L Monocytes % (Manual) Seg Neutrophils # Seg Neutrophils # Man 17.0 H Lymphocytes # (Manual) Monocytes # (Manual) 1.4 H PT APTT D-Dimer Heparin Anti-Xa Level 1.18 H ABG pH 7.520 H POC ABG pCO2 POC ABG pO2 66.0 L ABG pO2 ABG Hemoglobin ABG Oxyhemoglobin 92.5 L ABG Sodium 133.6 L ABG Potassium ABG Chloride ABG Glucose 250 H Carboxyhemoglobin Sodium Potassium Chloride Carbon Dioxide BUN Creatinine Glucose POC Glucose Lactic Acid Calcium Magnesium Ferritin AST ALT Alkaline Phosphatase Lactate Dehydrogenase Troponin T C-Reactive Protein Total Protein Albumin HDL Cholesterol Arterial Blood Glucose 250 H Arterial Blood Ionized Calcium 4.4 L Urine WBC (Auto) 06/01/21 06/01/21 06/01/21 04:58 05:29 11:39 WBC RBC Hgb Hct MCV MCH MCHC RDW [place] # (Auto) Seg Neutrophils % Seg Neuts % (Manual) Lymphocytes % (Manual) Monocytes % (Manual) Seg Neutrophils # Seg Neutrophils # Man Lymphocytes # (Manual) Monocytes # (Manual) PT APTT D-Dimer Heparin Anti-Xa Level ABG pH POC ABG pCO2 POC ABG pO2 ABG pO2 ABG Hemoglobin ABG Oxyhemoglobin ABG Sodium ABG Potassium ABG Chloride ABG Glucose Carboxyhemoglobin Sodium 131 L Potassium Chloride 95.7 L Carbon Dioxide BUN 30 H Creatinine 0.5 L Glucose 241 H POC Glucose 215 H 299 H Lactic Acid Calcium Magnesium Ferritin AST ALT Alkaline Phosphatase Lactate Dehydrogenase Troponin T C-Reactive Protein Total Protein Albumin HDL Cholesterol Arterial Blood Glucose Arterial Blood Ionized Calcium Urine WBC (Auto) 06/01/21 06/02/21 06/02/21 18:14 00:12 02:25 WBC 17.4 H RBC 3.09 L Hgb Hct MCV 101 H MCH 34 H MCHC RDW 15.5 H [place] # (Auto) Seg Neutrophils % Seg Neuts % (Manual) Lymphocytes % (Manual) Monocytes % (Manual) Seg Neutrophils # Seg Neutrophils # Man Lymphocytes # (Manual) Monocytes # (Manual) PT APTT D-Dimer Heparin Anti-Xa Level ABG pH POC ABG pCO2 POC ABG pO2 ABG pO2 ABG Hemoglobin ABG Oxyhemoglobin ABG Sodium ABG Potassium ABG Chloride ABG Glucose Carboxyhemoglobin Sodium Potassium Chloride Carbon Dioxide BUN Creatinine Glucose POC Glucose 215 H 175 H Lactic Acid Calcium Magnesium Ferritin AST ALT Alkaline Phosphatase Lactate Dehydrogenase Troponin T C-Reactive Protein Total Protein Albumin HDL Cholesterol Arterial Blood Glucose Arterial Blood Ionized Calcium Urine WBC (Auto) 06/02/21 06/02/21 06/02/21 02:25 04:13 04:58 WBC RBC Hgb Hct MCV MCH MCHC RDW [place] # (Auto) Seg Neutrophils % Seg Neuts % (Manual) Lymphocytes % (Manual) Monocytes % (Manual) Seg Neutrophils # Seg Neutrophils # Man Lymphocytes # (Manual) Monocytes # (Manual) PT APTT D-Dimer Heparin Anti-Xa Level ABG pH 7.481 H POC ABG pCO2 POC ABG pO2 80.0 L ABG pO2 ABG Hemoglobin 11.1 L ABG Oxyhemoglobin ABG Sodium 131.9 L ABG Potassium ABG Chloride ABG Glucose 231 H Carboxyhemoglobin 0.2 L Sodium 134 L Potassium Chloride 95.8 L Carbon Dioxide BUN 31 H Creatinine 0.5 L Glucose 168 H POC Glucose 230 H Lactic Acid Calcium Magnesium Ferritin AST ALT Alkaline Phosphatase Lactate Dehydrogenase Troponin T C-Reactive Protein Total Protein Albumin HDL Cholesterol Arterial Blood Glucose 231 H Arterial Blood Ionized Calcium Urine WBC (Auto) 06/02/21 06/02/21 06/02/21 11:27 17:47 23:53 WBC RBC Hgb Hct MCV MCH MCHC RDW [place] # (Auto) Seg Neutrophils % Seg Neuts % (Manual) Lymphocytes % (Manual) Monocytes % (Manual) Seg Neutrophils # Seg Neutrophils # Man Lymphocytes # (Manual) Monocytes # (Manual) PT APTT D-Dimer Heparin Anti-Xa Level 0.80 H ABG pH POC ABG pCO2 POC ABG pO2 ABG pO2 ABG Hemoglobin ABG Oxyhemoglobin ABG Sodium ABG Potassium ABG Chloride ABG Glucose Carboxyhemoglobin Sodium Potassium Chloride Carbon Dioxide BUN Creatinine Glucose POC Glucose 259 H 297 H Lactic Acid Calcium Magnesium Ferritin AST ALT Alkaline Phosphatase Lactate Dehydrogenase Troponin T C-Reactive Protein Total Protein Albumin HDL Cholesterol Arterial Blood Glucose Arterial Blood Ionized Calcium Urine WBC (Auto) 06/03/21 06/03/21 06/03/21 00:05 05:23 09:10 WBC RBC Hgb Hct MCV MCH MCHC RDW [place] # (Auto) Seg Neutrophils % Seg Neuts % (Manual) Lymphocytes % (Manual) Monocytes % (Manual) Seg Neutrophils # Seg Neutrophils # Man Lymphocytes # (Manual) Monocytes # (Manual) PT APTT D-Dimer Heparin Anti-Xa Level 0.84 H ABG pH POC ABG pCO2 POC ABG pO2 ABG pO2 ABG Hemoglobin ABG Oxyhemoglobin ABG Sodium ABG Potassium ABG Chloride ABG Glucose Carboxyhemoglobin Sodium Potassium Chloride Carbon Dioxide BUN Creatinine Glucose POC Glucose 268 H 170 H Lactic Acid Calcium Magnesium Ferritin AST ALT Alkaline Phosphatase Lactate Dehydrogenase Troponin T C-Reactive Protein Total Protein Albumin HDL Cholesterol Arterial Blood Glucose Arterial Blood Ionized Calcium Urine WBC (Auto) 06/03/21 06/03/21 06/03/21 12:06 20:22 23:30 WBC RBC Hgb Hct MCV MCH MCHC RDW [place] # (Auto) Seg Neutrophils % Seg Neuts % (Manual) Lymphocytes % (Manual) Monocytes % (Manual) Seg Neutrophils # Seg Neutrophils # Man Lymphocytes # (Manual) Monocytes # (Manual) PT APTT D-Dimer Heparin Anti-Xa Level ABG pH POC ABG pCO2 POC ABG pO2 ABG pO2 ABG Hemoglobin ABG Oxyhemoglobin ABG Sodium ABG Potassium ABG Chloride ABG Glucose Carboxyhemoglobin Sodium Potassium Chloride Carbon Dioxide BUN Creatinine Glucose POC Glucose 275 H 260 H 215 H Lactic Acid Calcium Magnesium Ferritin AST ALT Alkaline Phosphatase Lactate Dehydrogenase Troponin T C-Reactive Protein Total Protein Albumin HDL Cholesterol Arterial Blood Glucose Arterial Blood Ionized Calcium Urine WBC (Auto) 06/04/21 06/04/21 06/04/21 05:03 05:57 05:57 WBC 17.8 H RBC 2.83 L Hgb 9.6 L Hct 28.4 L MCV 100 H MCH 34 H MCHC RDW 15.5 H [place] # (Auto) Seg Neutrophils % Seg Neuts % (Manual) 83.0 H Lymphocytes % (Manual) 4.0 L Monocytes % (Manual) Seg Neutrophils # Seg Neutrophils # Man 14.8 H Lymphocytes # (Manual) 0.7 L Monocytes # (Manual) 1.1 H PT APTT D-Dimer Heparin Anti-Xa Level ABG pH POC ABG pCO2 POC ABG pO2 ABG pO2 ABG Hemoglobin ABG Oxyhemoglobin ABG Sodium ABG Potassium ABG Chloride ABG Glucose Carboxyhemoglobin Sodium 135 L Potassium Chloride 96.3 L Carbon Dioxide BUN 51 H Creatinine Glucose 275 H POC Glucose 257 H Lactic Acid Calcium Magnesium Ferritin AST ALT Alkaline Phosphatase Lactate Dehydrogenase Troponin T C-Reactive Protein Total Protein Albumin HDL Cholesterol Arterial Blood Glucose Arterial Blood Ionized Calcium Urine WBC (Auto) 06/04/21 06/04/21 06/04/21 09:48 11:08 17:33 WBC RBC Hgb Hct MCV MCH MCHC RDW [place] # (Auto) Seg Neutrophils % Seg Neuts % (Manual) Lymphocytes % (Manual) Monocytes % (Manual) Seg Neutrophils # Seg Neutrophils # Man Lymphocytes # (Manual) Monocytes # (Manual) PT APTT D-Dimer Heparin Anti-Xa Level ABG pH POC ABG pCO2 POC ABG pO2 ABG pO2 ABG Hemoglobin ABG Oxyhemoglobin ABG Sodium ABG Potassium ABG Chloride ABG Glucose Carboxyhemoglobin Sodium Potassium Chloride Carbon Dioxide BUN Creatinine Glucose POC Glucose 198 H 234 H 247 H Lactic Acid Calcium Magnesium Ferritin AST ALT Alkaline Phosphatase Lactate Dehydrogenase Troponin T C-Reactive Protein Total Protein Albumin HDL Cholesterol Arterial Blood Glucose Arterial Blood Ionized Calcium Urine WBC (Auto) 06/04/21 06/05/21 06/05/21 23:30 05:38 11:24 WBC RBC Hgb Hct MCV MCH MCHC RDW [place] # (Auto) Seg Neutrophils % Seg Neuts % (Manual) Lymphocytes % (Manual) Monocytes % (Manual) Seg Neutrophils # Seg Neutrophils # Man Lymphocytes # (Manual) Monocytes # (Manual) PT APTT D-Dimer Heparin Anti-Xa Level ABG pH POC ABG pCO2 POC ABG pO2 ABG pO2 ABG Hemoglobin ABG Oxyhemoglobin ABG Sodium ABG Potassium ABG Chloride ABG Glucose Carboxyhemoglobin Sodium Potassium Chloride Carbon Dioxide BUN Creatinine Glucose POC Glucose 192 H 192 H 287 H Lactic Acid Calcium Magnesium Ferritin AST ALT Alkaline Phosphatase Lactate Dehydrogenase Troponin T C-Reactive Protein Total Protein Albumin HDL Cholesterol Arterial Blood Glucose Arterial Blood Ionized Calcium Urine WBC (Auto) 06/05/21 06/05/21 06/05/21 12:20 12:20 12:20 WBC 16.2 H RBC 2.56 L Hgb 8.8 L Hct 25.2 L MCV 98 H MCH 35 H MCHC 35 H RDW 15.3 H [place] # (Auto) Seg Neutrophils % Seg Neuts % (Manual) Lymphocytes % (Manual) Monocytes % (Manual) Seg Neutrophils # Seg Neutrophils # Man Lymphocytes # (Manual) Monocytes # (Manual) PT APTT 72.2 H* D-Dimer Heparin Anti-Xa Level ABG pH POC ABG pCO2 POC ABG pO2 ABG pO2 ABG Hemoglobin ABG Oxyhemoglobin ABG Sodium ABG Potassium ABG Chloride ABG Glucose Carboxyhemoglobin Sodium 133 L Potassium Chloride 95.3 L Carbon Dioxide BUN 57 H Creatinine Glucose 313 H POC Glucose Lactic Acid Calcium Magnesium Ferritin AST 90 H ALT 79 H Alkaline Phosphatase 262 H Lactate Dehydrogenase Troponin T C-Reactive Protein Total Protein Albumin 2.7 L HDL Cholesterol Arterial Blood Glucose Arterial Blood Ionized Calcium Urine WBC (Auto) 06/05/21 06/05/21 06/05/21 17:50 22:57 23:36 WBC RBC Hgb Hct MCV MCH MCHC RDW [place] # (Auto) Seg Neutrophils % Seg Neuts % (Manual) Lymphocytes % (Manual) Monocytes % (Manual) Seg Neutrophils # Seg Neutrophils # Man Lymphocytes # (Manual) Monocytes # (Manual) PT APTT D-Dimer Heparin Anti-Xa Level 0.28 L ABG pH POC ABG pCO2 POC ABG pO2 ABG pO2 ABG Hemoglobin ABG Oxyhemoglobin ABG Sodium ABG Potassium ABG Chloride ABG Glucose Carboxyhemoglobin Sodium Potassium Chloride Carbon Dioxide BUN Creatinine Glucose POC Glucose 275 H 223 H Lactic Acid Calcium Magnesium Ferritin AST ALT Alkaline Phosphatase Lactate Dehydrogenase Troponin T C-Reactive Protein Total Protein Albumin HDL Cholesterol Arterial Blood Glucose Arterial Blood Ionized Calcium Urine WBC (Auto) 06/06/21 06/06/21 06/06/21 04:57 04:57 05:02 WBC 15.7 H RBC 2.77 L Hgb 9.4 L Hct 27.2 L MCV 98 H MCH 34 H MCHC RDW 15.4 H [place] # (Auto) Seg Neutrophils % Seg Neuts % (Manual) Lymphocytes % (Manual) Monocytes % (Manual) Seg Neutrophils # Seg Neutrophils # Man Lymphocytes # (Manual) Monocytes # (Manual) PT APTT D-Dimer Heparin Anti-Xa Level ABG pH POC ABG pCO2 POC ABG pO2 ABG pO2 ABG Hemoglobin ABG Oxyhemoglobin ABG Sodium ABG Potassium ABG Chloride ABG Glucose Carboxyhemoglobin Sodium Potassium 5.7 H Chloride Carbon Dioxide BUN 57 H Creatinine Glucose 245 H POC Glucose 217 H Lactic Acid Calcium Magnesium Ferritin AST 99 H ALT 136 H Alkaline Phosphatase 312 H Lactate Dehydrogenase Troponin T C-Reactive Protein Total Protein 6.1 L Albumin 3.1 L HDL Cholesterol Arterial Blood Glucose Arterial Blood Ionized Calcium Urine WBC (Auto) 06/06/21 06/06/21 06/06/21 11:37 17:34 18:09 WBC RBC Hgb Hct MCV MCH MCHC RDW [place] # (Auto) Seg Neutrophils % Seg Neuts % (Manual) Lymphocytes % (Manual) Monocytes % (Manual) Seg Neutrophils # Seg Neutrophils # Man Lymphocytes # (Manual) Monocytes # (Manual) PT APTT D-Dimer Heparin Anti-Xa Level ABG pH POC ABG pCO2 POC ABG pO2 ABG pO2 ABG Hemoglobin ABG Oxyhemoglobin ABG Sodium ABG Potassium ABG Chloride ABG Glucose Carboxyhemoglobin Sodium Potassium 5.2 H Chloride Carbon Dioxide BUN 48 H Creatinine Glucose 245 H POC Glucose 251 H 217 H Lactic Acid Calcium Magnesium Ferritin AST ALT Alkaline Phosphatase Lactate Dehydrogenase Troponin T C-Reactive Protein Total Protein Albumin HDL Cholesterol Arterial Blood Glucose Arterial Blood Ionized Calcium Urine WBC (Auto) 06/06/21 06/07/21 06/07/21 23:53 04:45 04:45 WBC 21.5 H RBC 2.71 L Hgb 9.0 L Hct 26.9 L MCV 99 H MCH 33 H MCHC RDW 15.3 H [place] # (Auto) Seg Neutrophils % Seg Neuts % (Manual) Lymphocytes % (Manual) Monocytes % (Manual) Seg Neutrophils # Seg Neutrophils # Man Lymphocytes # (Manual) Monocytes # (Manual) PT APTT D-Dimer Heparin Anti-Xa Level 0.10 L ABG pH POC ABG pCO2 POC ABG pO2 ABG pO2 ABG Hemoglobin ABG Oxyhemoglobin ABG Sodium ABG Potassium ABG Chloride ABG Glucose Carboxyhemoglobin Sodium Potassium Chloride Carbon Dioxide BUN Creatinine Glucose POC Glucose 224 H Lactic Acid Calcium Magnesium Ferritin AST ALT Alkaline Phosphatase Lactate Dehydrogenase Troponin T C-Reactive Protein Total Protein Albumin HDL Cholesterol Arterial Blood Glucose Arterial Blood Ionized Calcium Urine WBC (Auto) 06/07/21 06/07/21 06/07/21 04:45 05:11 11:50 WBC RBC Hgb Hct MCV MCH MCHC RDW [place] # (Auto) Seg Neutrophils % Seg Neuts % (Manual) Lymphocytes % (Manual) Monocytes % (Manual) Seg Neutrophils # Seg Neutrophils # Man Lymphocytes # (Manual) Monocytes # (Manual) PT APTT D-Dimer Heparin Anti-Xa Level ABG pH POC ABG pCO2 POC ABG pO2 ABG pO2 ABG Hemoglobin ABG Oxyhemoglobin ABG Sodium ABG Potassium ABG Chloride ABG Glucose Carboxyhemoglobin Sodium Potassium 5.4 H Chloride Carbon Dioxide BUN 55 H Creatinine Glucose 178 H POC Glucose 156 H 118 H Lactic Acid Calcium Magnesium Ferritin AST ALT Alkaline Phosphatase Lactate Dehydrogenase Troponin T C-Reactive Protein Total Protein Albumin HDL Cholesterol Arterial Blood Glucose Arterial Blood Ionized Calcium Urine WBC (Auto) 06/07/21 06/07/21 06/07/21 14:52 17:45 20:43 WBC RBC Hgb Hct MCV MCH MCHC RDW [place] # (Auto) Seg Neutrophils % Seg Neuts % (Manual) Lymphocytes % (Manual) Monocytes % (Manual) Seg Neutrophils # Seg Neutrophils # Man Lymphocytes # (Manual) Monocytes # (Manual) PT APTT D-Dimer Heparin Anti-Xa Level 0.73 H ABG pH POC ABG pCO2 POC ABG pO2 ABG pO2 ABG Hemoglobin ABG Oxyhemoglobin ABG Sodium ABG Potassium ABG Chloride ABG Glucose Carboxyhemoglobin Sodium Potassium Chloride Carbon Dioxide BUN Creatinine Glucose POC Glucose 164 H Lactic Acid Calcium Magnesium Ferritin AST ALT Alkaline Phosphatase Lactate Dehydrogenase Troponin T C-Reactive Protein 28.90 H Total Protein Albumin HDL Cholesterol Arterial Blood Glucose Arterial Blood Ionized Calcium Urine WBC (Auto) 06/07/21 06/08/21 06/08/21 23:15 04:25 04:25 WBC 15.8 H RBC 2.58 L Hgb 8.6 L Hct 25.7 L MCV 100 H MCH 33 H MCHC RDW [place] # (Auto) Seg Neutrophils % Seg Neuts % (Manual) 76.0 H Lymphocytes % (Manual) 6.0 L Monocytes % (Manual) 8.0 H Seg Neutrophils # Seg Neutrophils # Man 12.0 H Lymphocytes # (Manual) 0.9 L Monocytes # (Manual) 1.3 H PT APTT D-Dimer Heparin Anti-Xa Level ABG pH POC ABG pCO2 POC ABG pO2 ABG pO2 ABG Hemoglobin ABG Oxyhemoglobin ABG Sodium ABG Potassium ABG Chloride ABG Glucose Carboxyhemoglobin Sodium Potassium Chloride Carbon Dioxide BUN 65 H Creatinine Glucose 205 H POC Glucose 236 H Lactic Acid Calcium Magnesium Ferritin AST ALT Alkaline Phosphatase Lactate Dehydrogenase Troponin T C-Reactive Protein Total Protein Albumin HDL Cholesterol Arterial Blood Glucose Arterial Blood Ionized Calcium Urine WBC (Auto) 06/08/21 06/08/21 06/08/21 05:36 11:18 17:41 WBC RBC Hgb Hct MCV MCH MCHC RDW [place] # (Auto) Seg Neutrophils % Seg Neuts % (Manual) Lymphocytes % (Manual) Monocytes % (Manual) Seg Neutrophils # Seg Neutrophils # Man Lymphocytes # (Manual) Monocytes # (Manual) PT APTT D-Dimer Heparin Anti-Xa Level ABG pH POC ABG pCO2 POC ABG pO2 ABG pO2 ABG Hemoglobin ABG Oxyhemoglobin ABG Sodium ABG Potassium ABG Chloride ABG Glucose Carboxyhemoglobin Sodium Potassium Chloride Carbon Dioxide BUN Creatinine Glucose POC Glucose 185 H 203 H 173 H Lactic Acid Calcium Magnesium Ferritin AST ALT Alkaline Phosphatase Lactate Dehydrogenase Troponin T C-Reactive Protein Total Protein Albumin HDL Cholesterol Arterial Blood Glucose Arterial Blood Ionized Calcium Urine WBC (Auto) 06/08/21 06/09/21 06/09/21 23:34 05:16 05:20 WBC 15.0 H RBC 2.54 L Hgb 8.5 L Hct 25.2 L MCV 99 H MCH 33 H MCHC RDW [place] # (Auto) Seg Neutrophils % Seg Neuts % (Manual) Lymphocytes % (Manual) Monocytes % (Manual) Seg Neutrophils # Seg Neutrophils # Man Lymphocytes # (Manual) Monocytes # (Manual) PT APTT D-Dimer Heparin Anti-Xa Level ABG pH POC ABG pCO2 POC ABG pO2 ABG pO2 ABG Hemoglobin ABG Oxyhemoglobin ABG Sodium ABG Potassium ABG Chloride ABG Glucose Carboxyhemoglobin Sodium Potassium Chloride Carbon Dioxide BUN Creatinine Glucose POC Glucose 200 H 154 H Lactic Acid Calcium Magnesium Ferritin AST ALT Alkaline Phosphatase Lactate Dehydrogenase Troponin T C-Reactive Protein Total Protein Albumin HDL Cholesterol Arterial Blood Glucose Arterial Blood Ionized Calcium Urine WBC (Auto) 06/09/21 06/09/21 06/09/21 05:20 11:40 17:09 WBC RBC Hgb Hct MCV MCH MCHC RDW [place] # (Auto) Seg Neutrophils % Seg Neuts % (Manual) Lymphocytes % (Manual) Monocytes % (Manual) Seg Neutrophils # Seg Neutrophils # Man Lymphocytes # (Manual) Monocytes # (Manual) PT APTT D-Dimer Heparin Anti-Xa Level ABG pH POC ABG pCO2 POC ABG pO2 ABG pO2 ABG Hemoglobin ABG Oxyhemoglobin ABG Sodium ABG Potassium ABG Chloride ABG Glucose Carboxyhemoglobin Sodium Potassium 5.2 H Chloride Carbon Dioxide BUN 69 H Creatinine Glucose 163 H POC Glucose 232 H 137 H Lactic Acid Calcium Magnesium Ferritin AST ALT Alkaline Phosphatase Lactate Dehydrogenase Troponin T C-Reactive Protein Total Protein Albumin HDL Cholesterol Arterial Blood Glucose Arterial Blood Ionized Calcium Urine WBC (Auto) 06/09/21 06/10/21 06/10/21 23:31 04:42 04:42 WBC 14.5 H RBC 2.41 L Hgb 8.2 L Hct 24.0 L MCV 100 H MCH 34 H MCHC RDW 15.8 H [place] # (Auto) Seg Neutrophils % Seg Neuts % (Manual) Lymphocytes % (Manual) Monocytes % (Manual) Seg Neutrophils # Seg Neutrophils # Man Lymphocytes # (Manual) Monocytes # (Manual) PT APTT D-Dimer Heparin Anti-Xa Level ABG pH POC ABG pCO2 POC ABG pO2 ABG pO2 ABG Hemoglobin ABG Oxyhemoglobin ABG Sodium ABG Potassium ABG Chloride ABG Glucose Carboxyhemoglobin Sodium 146 H D Potassium 3.4 L D Chloride Carbon Dioxide BUN 62 H Creatinine Glucose 174 H POC Glucose 162 H Lactic Acid Calcium Magnesium Ferritin AST ALT Alkaline Phosphatase Lactate Dehydrogenase Troponin T C-Reactive Protein Total Protein Albumin HDL Cholesterol Arterial Blood Glucose Arterial Blood Ionized Calcium Urine WBC (Auto) 06/10/21 06/10/21 06/10/21 05:36 11:43 18:24 WBC RBC Hgb Hct MCV MCH MCHC RDW [place] # (Auto) Seg Neutrophils % Seg Neuts % (Manual) Lymphocytes % (Manual) Monocytes % (Manual) Seg Neutrophils # Seg Neutrophils # Man Lymphocytes # (Manual) Monocytes # (Manual) PT APTT D-Dimer Heparin Anti-Xa Level ABG pH POC ABG pCO2 POC ABG pO2 ABG pO2 ABG Hemoglobin ABG Oxyhemoglobin ABG Sodium ABG Potassium ABG Chloride ABG Glucose Carboxyhemoglobin Sodium Potassium Chloride Carbon Dioxide BUN Creatinine Glucose POC Glucose 149 H 183 H 139 H Lactic Acid Calcium Magnesium Ferritin AST ALT Alkaline Phosphatase Lactate Dehydrogenase Troponin T C-Reactive Protein Total Protein Albumin HDL Cholesterol Arterial Blood Glucose Arterial Blood Ionized Calcium Urine WBC (Auto) 06/10/21 06/11/21 06/11/21 23:32 04:17 05:22 WBC RBC Hgb Hct MCV MCH MCHC RDW [place] # (Auto) Seg Neutrophils % Seg Neuts % (Manual) Lymphocytes % (Manual) Monocytes % (Manual) Seg Neutrophils # Seg Neutrophils # Man Lymphocytes # (Manual) Monocytes # (Manual) PT APTT D-Dimer Heparin Anti-Xa Level 0.84 H ABG pH POC ABG pCO2 POC ABG pO2 ABG pO2 ABG Hemoglobin ABG Oxyhemoglobin ABG Sodium ABG Potassium ABG Chloride ABG Glucose Carboxyhemoglobin Sodium Potassium Chloride Carbon Dioxide BUN Creatinine Glucose POC Glucose 149 H 138 H Lactic Acid Calcium Magnesium Ferritin AST ALT Alkaline Phosphatase Lactate Dehydrogenase Troponin T C-Reactive Protein Total Protein Albumin HDL Cholesterol Arterial Blood Glucose Arterial Blood Ionized Calcium Urine WBC (Auto) 06/11/21 06/11/21 06/12/21 11:26 23:56 04:44 WBC 15.5 H RBC 2.59 L Hgb 8.6 L Hct 25.8 L MCV 100 H MCH 33 H MCHC RDW 15.3 H [place] # (Auto) Seg Neutrophils % Seg Neuts % (Manual) Lymphocytes % (Manual) Monocytes % (Manual) Seg Neutrophils # Seg Neutrophils # Man Lymphocytes # (Manual) Monocytes # (Manual) PT APTT D-Dimer Heparin Anti-Xa Level ABG pH POC ABG pCO2 POC ABG pO2 ABG pO2 ABG Hemoglobin ABG Oxyhemoglobin ABG Sodium ABG Potassium ABG Chloride ABG Glucose Carboxyhemoglobin Sodium Potassium Chloride Carbon Dioxide BUN Creatinine Glucose POC Glucose 198 H 199 H Lactic Acid Calcium Magnesium Ferritin AST ALT Alkaline Phosphatase Lactate Dehydrogenase Troponin T C-Reactive Protein Total Protein Albumin HDL Cholesterol Arterial Blood Glucose Arterial Blood Ionized Calcium Urine WBC (Auto) 06/12/21 06/12/21 06/12/21 04:44 04:44 05:29 WBC RBC Hgb Hct MCV MCH MCHC RDW [place] # (Auto) Seg Neutrophils % Seg Neuts % (Manual) Lymphocytes % (Manual) Monocytes % (Manual) Seg Neutrophils # Seg Neutrophils # Man Lymphocytes # (Manual) Monocytes # (Manual) PT APTT D-Dimer Heparin Anti-Xa Level ABG pH POC ABG pCO2 POC ABG pO2 ABG pO2 ABG Hemoglobin ABG Oxyhemoglobin ABG Sodium ABG Potassium ABG Chloride ABG Glucose Carboxyhemoglobin Sodium 148 H Potassium Chloride Carbon Dioxide BUN 49 H 51 H Creatinine Glucose 222 H 223 H POC Glucose 193 H Lactic Acid Calcium Magnesium 3.20 H Ferritin AST 81 H ALT 83 H Alkaline Phosphatase 215 H Lactate Dehydrogenase Troponin T C-Reactive Protein Total Protein Albumin 3.2 L HDL Cholesterol Arterial Blood Glucose Arterial Blood Ionized Calcium Urine WBC (Auto) 06/12/21 06/12/21 06/12/21 11:21 17:55 23:23 WBC RBC Hgb Hct MCV MCH MCHC RDW [place] # (Auto) Seg Neutrophils % Seg Neuts % (Manual) Lymphocytes % (Manual) Monocytes % (Manual) Seg Neutrophils # Seg Neutrophils # Man Lymphocytes # (Manual) Monocytes # (Manual) PT APTT D-Dimer Heparin Anti-Xa Level ABG pH POC ABG pCO2 POC ABG pO2 ABG pO2 ABG Hemoglobin ABG Oxyhemoglobin ABG Sodium ABG Potassium ABG Chloride ABG Glucose Carboxyhemoglobin Sodium Potassium Chloride Carbon Dioxide BUN Creatinine Glucose POC Glucose 185 H 210 H 211 H Lactic Acid Calcium Magnesium Ferritin AST ALT Alkaline Phosphatase Lactate Dehydrogenase Troponin T C-Reactive Protein Total Protein Albumin HDL Cholesterol Arterial Blood Glucose Arterial Blood Ionized Calcium Urine WBC (Auto) 06/13/21 06/13/21 06/13/21 04:34 04:34 05:17 WBC 17.2 H RBC 2.56 L Hgb 8.6 L Hct 26.1 L MCV 102 H MCH 34 H MCHC RDW [place] # (Auto) Seg Neutrophils % Seg Neuts % (Manual) Lymphocytes % (Manual) Monocytes % (Manual) Seg Neutrophils # Seg Neutrophils # Man Lymphocytes # (Manual) Monocytes # (Manual) PT APTT D-Dimer Heparin Anti-Xa Level ABG pH POC ABG pCO2 POC ABG pO2 ABG pO2 ABG Hemoglobin ABG Oxyhemoglobin ABG Sodium ABG Potassium ABG Chloride ABG Glucose Carboxyhemoglobin Sodium 149 H Potassium 5.1 H Chloride Carbon Dioxide BUN 52 H Creatinine 1.6 H Glucose 231 H POC Glucose 207 H Lactic Acid Calcium Magnesium Ferritin AST 69 H ALT 74 H Alkaline Phosphatase 197 H Lactate Dehydrogenase Troponin T C-Reactive Protein Total Protein Albumin 3.0 L HDL Cholesterol Arterial Blood Glucose Arterial Blood Ionized Calcium Urine WBC (Auto) 06/13/21 06/13/21 06/13/21 10:44 11:07 12:07 WBC RBC Hgb Hct MCV MCH MCHC RDW [place] # (Auto) Seg Neutrophils % Seg Neuts % (Manual) Lymphocytes % (Manual) Monocytes % (Manual) Seg Neutrophils # Seg Neutrophils # Man Lymphocytes # (Manual) Monocytes # (Manual) PT APTT D-Dimer Heparin Anti-Xa Level < 0.10 L ABG pH 7.455 H POC ABG pCO2 POC ABG pO2 ABG pO2 ABG Hemoglobin 8.6 L ABG Oxyhemoglobin ABG Sodium ABG Potassium 4.7 H ABG Chloride ABG Glucose 277 H Carboxyhemoglobin Sodium Potassium Chloride Carbon Dioxide BUN Creatinine Glucose POC Glucose 241 H Lactic Acid Calcium Magnesium Ferritin AST ALT Alkaline Phosphatase Lactate Dehydrogenase Troponin T C-Reactive Protein Total Protein Albumin HDL Cholesterol Arterial Blood Glucose 277 H Arterial Blood Ionized Calcium Urine WBC (Auto) 06/13/21 06/13/21 06/13/21 17:35 21:13 23:19 WBC RBC Hgb Hct MCV MCH MCHC RDW [place] # (Auto) Seg Neutrophils % Seg Neuts % (Manual) Lymphocytes % (Manual) Monocytes % (Manual) Seg Neutrophils # Seg Neutrophils # Man Lymphocytes # (Manual) Monocytes # (Manual) PT APTT D-Dimer Heparin Anti-Xa Level 0.92 H ABG pH POC ABG pCO2 POC ABG pO2 ABG pO2 ABG Hemoglobin ABG Oxyhemoglobin ABG Sodium ABG Potassium ABG Chloride ABG Glucose Carboxyhemoglobin Sodium Potassium Chloride Carbon Dioxide BUN Creatinine Glucose POC Glucose 233 H 232 H Lactic Acid Calcium Magnesium Ferritin AST ALT Alkaline Phosphatase Lactate Dehydrogenase Troponin T C-Reactive Protein Total Protein Albumin HDL Cholesterol Arterial Blood Glucose Arterial Blood Ionized Calcium Urine WBC (Auto) 06/14/21 06/14/21 06/14/21 04:21 04:21 05:36 WBC 15.6 H RBC 2.26 L Hgb 7.6 L Hct 22.9 L MCV 101 H MCH 34 H MCHC RDW 15.3 H [place] # (Auto) Seg Neutrophils % Seg Neuts % (Manual) Lymphocytes % (Manual) Monocytes % (Manual) Seg Neutrophils # Seg Neutrophils # Man Lymphocytes # (Manual) Monocytes # (Manual) PT APTT D-Dimer Heparin Anti-Xa Level ABG pH POC ABG pCO2 POC ABG pO2 ABG pO2 ABG Hemoglobin ABG Oxyhemoglobin ABG Sodium ABG Potassium ABG Chloride ABG Glucose Carboxyhemoglobin Sodium 149 H Potassium Chloride 107.8 H Carbon Dioxide BUN 66 H Creatinine 1.8 H Glucose 192 H POC Glucose 166 H Lactic Acid Calcium Magnesium Ferritin AST ALT Alkaline Phosphatase Lactate Dehydrogenase Troponin T C-Reactive Protein Total Protein Albumin HDL Cholesterol Arterial Blood Glucose Arterial Blood Ionized Calcium Urine WBC (Auto) 06/14/21 12:21 WBC RBC Hgb Hct MCV MCH MCHC RDW [place] # (Auto) Seg Neutrophils % Seg Neuts % (Manual) Lymphocytes % (Manual) Monocytes % (Manual) Seg Neutrophils # Seg Neutrophils # Man Lymphocytes # (Manual) Monocytes # (Manual) PT APTT D-Dimer Heparin Anti-Xa Level ABG pH POC ABG pCO2 POC ABG pO2 ABG pO2 ABG Hemoglobin ABG Oxyhemoglobin ABG Sodium ABG Potassium ABG Chloride ABG Glucose Carboxyhemoglobin Sodium Potassium Chloride Carbon Dioxide BUN Creatinine Glucose POC Glucose 190 H Lactic Acid Calcium Magnesium Ferritin AST ALT Alkaline Phosphatase Lactate Dehydrogenase Troponin T C-Reactive Protein Total Protein Albumin HDL Cholesterol Arterial Blood Glucose Arterial Blood Ionized Calcium Urine WBC (Auto) Chest x-ray: pending Allied health notes reviewed: nursing
[2021-06-14] MEDS: HEPARIN/ 0.45% NACL DRIP 25,000 UNIT/500 ML BAG IV SCH (14:30)
[2021-06-14] MEDS: FREE WATER PO SCH ×4 (14:32→21:56)
--- NOTE | 2021-06-14 16:24 | Progress Note ---
Assessment and Plan Assessment and plan: This is a 65 year old female with HTN, nonepileptic spells, PTSD, close head injury, DM, CAD s/p stents and WA, independence, hyperlipidemia admitted with sepsis, pneumonia, acute proximal respiratory failure, toxic metabolic encephalopathy, suspected anoxic brain injury, metabolic acidosis Neuro: Toxic metabolic encephalopathy, likely anoxic brain injury, tonic-cloninc seziure; h/o nonepileptic spells, PTSD, closed head injury -Neurology consulted, appreciate recommendations -CT head completed->see results, without acute or large territorial infarct -Per neurology: MRI brain is suggestive of water shed Infarct Bilateral -- mostly related to Hypoperfusion -06/01 repeat MRI brain noted, possible subacute ischemic changes. -Off sedation -Intact cough/gag, pupils sluggish -Keppra -EEG showed no signs of seizure -Repeat MRI with contrast pending -prn ativan -Patient is off sedation, open eyes spontaneously, pupils reactive, with +gag and cough. -Not following commands, no movement to stimuli Cardio: S/p cardiac arrest, A. fib with RVR, h/o HTN -Currently on Labetalol, Hydralazine, valsartan, & Doxazosin -PRN hydral IV -Cardiology consulted, appreciate recommendations -05/2020 dobutamine thallium stress test showed normal perfusion study. -05/2020 echo showed normal left ventricular systolic function. -NIBP per protocol Resp: Acute hypoxic respiratory failure -[facility] consulted, appreciate recommendations -Intubated 05/25 with 7.0 oett at 23 lip, trach on 06/12 -AM vent settings: AC TV 450, R 12, PEEP 8, 30% FiO2 -CPAP trial today -to start t piece trials tomorrow -see RT notes for titration -ABG/CXR -Continuous SP02 monitoring -Scopalamine and robinul for secretions -VAP bundle GI: protein -aspen malnutrition -Ntr consult for TF -PEG placed 06/12 -PPI -24hr -189 -BR: senokot, maalox, colace -BM: 06/10 : Acute renal injury -purwick -Trend BMP -Monitor and replete electrolytes as needed -FWF increased Endo: Hyperglycemia, h/o DM -SSI -Lantus -Avoid hypoglycemia -accucheck q6 Heme: Leukocytosis -CTA chest without evidence of PE -IV heparin d/t afib -transition to PO tomorrow -CAMILO-VASC2 score 4 -Trend CBC ID: Sepsis, Bilateral Lower Lobe Infiltrates -COVID 19 PCR (-) -s/p cefepime 05/25-05/29 -admit cxr with infiltrates, CTA chest with dense dependent consolidation/at electasis in lungs -Monitor temp and WBC curve -BC/UC/Tracheal aspirate NGTD from 05/25 -Covid 19 PCR negative -06/07 CRP 28.90 and procal 0.36 Dispo: pending LTACH The high probability of a clinically significant, sudden or life threatening deterioration of the [multiple] system(s) required my full and direct attention, intervention and personal management. The aggregate critical care time was [60] minutes. This time is in addition to time spent performing reported procedures but includes the following: [x] Data Review and interpretation [x] Patient assessment and monitoring of vital signs [x] Documentation [x] Medication orders and management Disposition Plan: icu Total Time Spent with Patient (Minutes): 60 History Interval history: 65-year-old female, history of nonepileptic spells, PTSD, closed head injury, hypertension, diabetes, CAD, presents to the ED following cardiac arrest. EMS states Patient collapsed and became unresponsive. Patient was pulseless and apneic. Rhythm was asystole. Patient was intubated by EMS. She was given epi x2. ACLS times approximately 10 minutes followed by return of pulses. Accu- Chek in the 200s. With initial rhythm check here in ED, patient was pulseless, so ACLS restarted. Patient has return of pulse and noted to be in atrial fib, initiated on iv keppra and heparin drip. 05/26/21: Updated family at the bedside, Covid test is negative. Will order EEG and neuro consult. Remains intubated, follow clinically. Sedated on Midazolam and Propofol, just received one dose of Lorazepam for witnessed seizure by RN. NSR now, on heparin drip 05/27/21; remains intubated. pending EEG and neuro eval. wean off vent as tolerated. Continue heparin drip per cardiology, replete potassium yesterday, follow BMP. BP noted to be elevated, next started on antihypertensives. 05/28/21; BP noted to be elevated, initiated on antihypertensive, remains intubated. Pending neurology evaluation and EEG. Continue supportive care, follow BMP. 05/29/21: Ordered for MRI brain, continue Keppra, pending EEG. Appreciate neuro recommendation. follow BMP, tolerating TF 05/30/21: Patient remains intubated, pending MRI brain, follow neurology recommendation. EEG showed diffuse slowing. 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 off sedation now, cont to follow. gurded prognosis 06/01: MRI was suggestive of watershed infarct bilaterally and was seen by neurology and recommend to do MRI with gadolinium. Patient is off sedation and still unresponsive. Prognosis is guarded. 06/02: Continue current management. Prognosis is guarded. Patient needs trach. 06/03: Patient is unresponsive spite of all sedatives. Prognosis is guarded to poor. Neurology consult appreciated. 06/04: Patient is unresponsive. Patient is off sedatives. Blood sugar is uncontrolled and I adjusted her insulin. Neurology consult appreciated. Prognosis is guarded to poor. 06/05/21- Patient remains ETT and on vent support. Off sedation with some improvement in neuro status, but is not following commands. Patient is tolerating SBT trial this am, still on the heparin gtt. AM labs is pending. Patient is still hyperglycemic, increased Qhs lantus. Continue supportive care. 06/06/21- Patient is intubated and on the vent. No longer on sedation, awake but unresponsive, tolerating SBT. Hyperglycemia this am, X1 dose of kayaxalate orderd. Persistent hyperglycemia, insulin adjusted. Continue to monitor electrolytes, repeat BMP this afternoon and am labs ordered. 06/07/21- Patient remains intubated and on the vent. Neuro status is unchanged, spontaneously open yes but is not following commands. SBT trial again, plan to place back on a rate overnight. Leukocytosis noted from this morning lab, stat procalc and CRP ordered, d/w [facility] no abx at this time. K 5.4 today, kayalalxate given. Continue to monitor leukocytosis and electrolytes. Am labs ordered 06/08/21- Patient remains intubated and on the vent with no significant change in her neuro status. Patient with no BM in 7days, abdominal soft with positive bowel sounds, colace added and PRN ducolax Supp PRN. Continue to monitor leukocytosis and electrolytes, am labs ordered. Plan for trach and PEG, surgery consulted. 06/09/21- Patient remains stable, intubated with no significant change in neuro status. Trach and Peg cancelled for today. Plan for possibly next week. Hyperkalemia again today, chart review for possible meds interaction. X1 dose of kayexalate ordered. Still no BM today. Episode of emesis today, TF held and NGT to LIS until tommorrow. Orders place for KUB today and Chest XR for the m orning. Morning labs ordered. 06/10: Continue supportive care. Trach and PEG planned for early next week. KUB and x-ray with no significant change. Opacity still persist. Critical care management noted. Patient still persistent leukocytosis we will continue to monitor mild hypokalemia noted will replace with potassium. Also noted mild hypernatremia. Agree with holding tube feeds at this time 06/11: Discussed with nursing staff to change to history trickle feeds. Patient is planned for trach and PEG Saturday or Saturday. Continue current management also discussed to hold heparin drip for planned procedure with noted timeframe. We will recheck labs to ensure correction of electrolytes. 06/12/21- Patient's status is unchanged. No significant events overnight. Plan for trach and PEG today. TF and heparin gtt on hold. Continue supportive care. Continue to monitor electrolytes, am labs ordered. 06/13/21- Patient is s/p trach and PEG. D/w surgery okay to use PEGTube and restart TF. Heparin gtt was also restarted per protocol. Persistent hypernatremia FWF increased for 48hrs, mild hyperkalemia noted no intervention at this time. Continue to monitor renal function and electrolytes, am labs ordered. 06/14: Transition to PO anticoagulation from heparin gtt tomorrow. plan to place on tpiece tomorrow. Hospitalist Physical - Constitutional Vitals: Temp Pulse Resp BP Pulse Ox 98.6 F 80 19 132/53 99 06/14/21 12:31 06/14/21 15:59 06/14/21 15:59 06/14/21 15:59 06/14/21 15:59 General appearance: Present: no acute distress - EENT Eyes: Present: PERRL ENT: clear oral mucosa - Neck Neck: Present: normal ROM - Respiratory Respiratory effort: normal Respiratory: bilateral: diminished - Cardiovascular Rhythm: regular Heart Sounds: Present: S1 & S2. Absent: systolic murmur, diastolic murmur - Extremities Extremities: no ischemia, pulses intact, pulses symmetrical, No edema, normal temperature, normal color Peripheral Pulses: within normal limits - Abdominal General gastrointestinal: soft, non-tender, non-distended, normal bowel sounds - Integumentary Integumentary: Present: warm, dry - Psychiatric Psychiatric: other - Neurologic Neurologic: other (not interactive, intact cough/gag reflex, PERRL) - Allied Health Allied health notes reviewed: nursing, RT, social work HEART Score - HEART Score Troponin: Troponin T 0.226 ng/mL (0.00-0.029) H* D 05/25/21 15:19 Results - Labs CBC & Chem 7: 06/14/21 04:21 06/14/21 04:21 Labs: Laboratory Last Values WBC 15.6 K/mm3 (4.5-11.0) H 06/14/21 04:21 RBC 2.26 M/mm3 (3.65-5.03) L 06/14/21 04:21 Hgb 7.6 gm/dl (10.1-14.3) L 06/14/21 04:21 Hct 22.9 % (30.3-42.9) L 06/14/21 04:21 MCV 101 fl (79-97) H 06/14/21 04:21 MCH 34 pg (28-32) H 06/14/21 04:21 MCHC 33 % (30-34) 06/14/21 04:21 RDW 15.3 % (13.2-15.2) H 06/14/21 04:21 Plt Count 226 K/mm3 (140-440) 06/14/21 04:21 Lymph % (Auto) 14.3 % (13.4-35.0) 05/28/21 04:00 [place] % (Auto) 6.9 % (0.0-7.3) 05/28/21 04:00 Eos % (Auto) 0.1 % (0.0-4.3) 05/28/21 04:00 Baso % (Auto) 0.5 % (0.0-1.8) 05/28/21 04:00 Lymph # (Auto) 1.9 K/mm3 (1.2-5.4) 05/28/21 04:00 [place] # (Auto) 0.9 K/mm3 (0.0-0.8) H 05/28/21 04:00 Eos # (Auto) 0.0 K/mm3 (0.0-0.4) 05/28/21 04:00 Baso # (Auto) 0.1 K/mm3 (0.0-0.1) 05/28/21 04:00 Add Manual Diff Complete 06/08/21 04:25 Total Counted 100 06/08/21 04:25 Seg Neutrophils % 78.2 % (40.0-70.0) H 05/28/21 04:00 Seg Neuts % (Manual) 76.0 % (40.0-70.0) H 06/08/21 04:25 Band Neutrophils % 4.0 % 06/08/21 04:25 Lymphocytes % (Manual) 6.0 % (13.4-35.0) L 06/08/21 04:25 Monocytes % (Manual) 8.0 % (0.0-7.3) H 06/08/21 04:25 Eosinophils % (Manual) 1.0 % (0.0-4.3) 06/08/21 04:25 Metamyelocytes % 3.0 % 06/08/21 04:25 Myelocytes % 2.0 % 06/08/21 04:25 Nucleated RBC % Not Reportable 06/08/21 04:25 Seg Neutrophils # 10.6 K/mm3 (1.8-7.7) H 05/28/21 04:00 Seg Neutrophils # Man 12.0 K/mm3 (1.8-7.7) H 06/08/21 04:25 Band Neutrophils # 0.6 K/mm3 06/08/21 04:25 Lymphocytes # (Manual) 0.9 K/mm3 (1.2-5.4) L 06/08/21 04:25 Abs React Lymphs (Man) 0.0 K/mm3 06/08/21 04:25 Monocytes # (Manual) 1.3 K/mm3 (0.0-0.8) H 06/08/21 04:25 Eosinophils # (Manual) 0.2 K/mm3 (0.0-0.4) 06/08/21 04:25 Basophils # (Manual) 0.0 K/mm3 (0.0-0.1) 06/08/21 04:25 Metamyelocytes # 0.5 K/mm3 06/08/21 04:25 Myelocytes # 0.3 K/mm3 06/08/21 04:25 Promyelocytes # 0.0 K/mm3 06/08/21 04:25 Blast Cells # 0.0 K/mm3 06/08/21 04:25 WBC Morphology Not Reportable 06/08/21 04:25 Hypersegmented Neuts Not Reportable 06/08/21 04:25 Hyposegmented Neuts Not Reportable 06/08/21 04:25 Hypogranular Neuts Not Reportable 06/08/21 04:25 Smudge Cells Not Reportable 06/08/21 04:25 Toxic Granulation Not Reportable 06/08/21 04:25 Toxic Vacuolation Not Reportable 06/08/21 04:25 Dohle Bodies Not Reportable 06/08/21 04:25 Pelger-Huet Anomaly Not Reportable 06/08/21 04:25 Peter Rods Not Reportable 06/08/21 04:25 Platelet Estimate Consistent w auto 06/08/21 04:25 Clumped Platelets Not Reportable 06/08/21 04:25 Plt Clumps, EDTA Not Reportable 06/08/21 04:25 Large Platelets Not Reportable 06/08/21 04:25 Giant Platelets Not Reportable 06/08/21 04:25 Platelet Satelliting Not Reportable 06/08/21 04:25 Plt Morphology Comment Not Reportable 06/08/21 04:25 RBC Morphology Not Reportable 06/08/21 04:25 Dimorphic RBCs Not Reportable 06/08/21 04:25 Polychromasia Not Reportable 06/08/21 04:25 Hypochromasia Not Reportable 06/08/21 04:25 Poikilocytosis Not Reportable 06/08/21 04:25 Anisocytosis Not Reportable 06/08/21 04:25 Microcytosis Not Reportable 06/08/21 04:25 Macrocytosis Not Reportable 06/08/21 04:25 Spherocytes Not Reportable 06/08/21 04:25 Pappenheimer Bodies Not Reportable 06/08/21 04:25 Sickle Cells Not Reportable 06/08/21 04:25 Target Cells Not Reportable 06/08/21 04:25 Tear Drop Cells Not Reportable 06/08/21 04:25 Ovalocytes Not Reportable 06/08/21 04:25 Helmet Cells Not Reportable 06/08/21 04:25 Toribio-Peterson Bodies Not Reportable 06/08/21 04:25 [place]rington Rings Not Reportable 06/08/21 04:25 [place] Cells Not Reportable 06/08/21 04:25 Bite Cells Not Reportable 06/08/21 04:25 Crenated Cell Not Reportable 06/08/21 04:25 Elliptocytes Not Reportable 06/08/21 04:25 Acanthocytes (Spur) Not Reportable 06/08/21 04:25 Rouleaux Not Reportable 06/08/21 04:25 Hemoglobin C Crystals Not Reportable 06/08/21 04:25 Schistocytes Not Reportable 06/08/21 04:25 Malaria parasites Not Reportable 06/08/21 04:25 Shravan Bodies Not Reportable 06/08/21 04:25 Hem Pathologist Commnt No 06/08/21 04:25 PT 14.6 Sec. (12.2-14.9) 06/09/21 05:20 INR 1.09 (0.87-1.13) 06/09/21 05:20 APTT 25.4 Sec. (24.2-36.6) 06/13/21 10:44 D-Dimer > 36357 ng/mlDDU (0-234) H 05/25/21 09:21 Heparin Anti-Xa Level 0.64 U.I./ml (0.3-0.7) 06/14/21 04:21 ABG pH 7.455 (7.320-7.450) H 06/13/21 11:07 POC ABG pCO2 44.9 mmHg (32.0-48.0) 06/13/21 11:07 ABG pCO2 30.3 mm Hg 05/29/21 05:28 POC ABG pO2 85.2 mmHg (83-108) 06/13/21 11:07 ABG pO2 96.2 mm Hg (80.0-90.0) H 05/29/21 05:28 POC ABG HCO3 30.9 10/05/21 11:07 ABG HCO3 24.0 mmol/L (20.0-26.0) 05/29/21 05:28 ABG O2 Saturation 96.3 (0-100) 06/13/21 11:07 ABG O2 Content 10.3 (0.0-44) 05/29/21 05:28 POC ABG Base Excess 6.3 06/13/21 11:07 ABG Base Excess 1.2 mmol/L (-2.0-3.0) 05/29/21 05:28 ABG Hemoglobin 8.6 (12.0-17.5) L 06/13/21 11:07 ABG Oxyhemoglobin 94.9 (94-98) 06/13/21 11:07 ABG Carboxyhemoglobin 1.6 % (0.0-5.0) 05/29/21 05:28 ABG Methemoglobin 0.3 (0.0-1.5) 06/13/21 11:07 ABG Sodium 144.0 mmol/L (136.0-145.0) 06/13/21 11:07 ABG Potassium 4.7 mmol/L (3.40-4.50) H 06/13/21 11:07 ABG Chloride 107.0 mmol/L (98-107) 06/13/21 11:07 ABG Glucose 277 mg/dL (65-95) H 06/13/21 11:07 Oxyhemoglobin 96.0 % (95.0-99.0) 05/29/21 05:28 Carboxyhemoglobin 1.2 (0.5-1.5) 06/13/21 11:07 FiO2 30 % 05/29/21 05:28 FiO2 % 30 06/13/21 11:07 Sodium 149 mmol/L (137-145) H 06/14/21 04:21 Potassium 4.6 mmol/L (3.6-5.0) 06/14/21 04:21 Chloride 107.8 mmol/L (98-107) H 06/14/21 04:21 Carbon Dioxide 26 mmol/L (22-30) 06/14/21 04:21 Anion Gap 20 mmol/L 06/14/21 04:21 BUN 66 mg/dL (7-17) H 06/14/21 04:21 Creatinine 1.8 mg/dL (0.6-1.2) H 06/14/21 04:21 Estimated GFR 34 ml/min 06/14/21 04:21 BUN/Creatinine Ratio 37 % 06/14/21 04:21 Glucose 192 mg/dL (65-100) H 06/14/21 04:21 POC Glucose 190 mg/dL (70-105) H 06/14/21 12:21 Lactic Acid 2.30 mmol/L (0.7-2.0) H* 05/26/21 05:49 Calcium 8.8 mg/dL (8.4-10.2) 06/14/21 04:21 Magnesium 3.20 mg/dL (1.7-2.3) H 06/12/21 04:44 Ferritin 321.6 ng/mL (10.0-200.0) H 05/25/21 09:21 Total Bilirubin 0.50 mg/dL (0.1-1.2) 06/13/21 04:34 Direct Bilirubin < 0.2 mg/dL (0-0.2) 05/25/21 09:21 Indirect Bilirubin 0.2 mg/dL 05/25/21 09:21 AST 69 units/L (5-40) H 06/13/21 04:34 ALT 74 units/L (7-56) H 06/13/21 04:34 Alkaline Phosphatase 197 units/L (35-129) H 06/13/21 04:34 Lactate Dehydrogenase 445 units/L (91-180) H 05/25/21 09:21 Troponin T 0.226 ng/mL (0.00-0.029) H* D 05/25/21 15:19 C-Reactive Protein 28.90 mg/dL (0.00-1.30) H 06/07/21 14:52 NT-Pro-B Natriuret Pep 173.2 pg/mL (0-900) 05/25/21 09:21 Total Protein 7.5 g/dL (6.3-8.2) 06/13/21 04:34 Albumin 3.0 g/dL (3.9-5) L 06/13/21 04:34 Albumin/Globulin Ratio 0.7 % 06/13/21 04:34 Triglycerides 124 mg/dL (2-149) 05/30/21 11:19 Cholesterol 198 mg/dL (50-199) 05/25/21 15:19 LDL Cholesterol Direct 80 mg/dL (50-130) 05/25/21 15:19 HDL Cholesterol 64 mg/dL (40-59) H 05/25/21 15:19 Cholesterol/HDL Ratio 3.09 % 05/25/21 15:19 Procalcitonin 0.36 ng/mL (<0.15) 06/07/21 14:52 Arterial Blood Glucose 277 mg/dL (65-95) H 06/13/21 11:07 Arterial Blood Ionized Calcium 4.6 mg/dL (4.6-5.3) 06/02/21 04:13 Urine Color Straw (Yellow) 05/25/21 10:42 Urine Turbidity Clear (Clear) 05/25/21 10:42 Urine pH 6.0 (5.0-7.0) 05/25/21 10:42 Ur Specific [place] 1.007 (1.003-1.030) 05/25/21 10:42 Urine Protein 100 mg/dl mg/dL (Negative) 05/25/21 10:42 Urine Glucose (UA) >=500 mg/dL (Negative) 05/25/21 10:42 Urine Ketones Neg mg/dL (Negative) 05/25/21 10:42 Urine Blood Mod (Negative) 05/25/21 10:42 Urine Nitrite Neg (Negative) 05/25/21 10:42 Ur Reducing Substances Not Reportable 05/25/21 10:42 Urine Bilirubin Neg (Negative) 05/25/21 10:42 Urine Ictotest Not Reportable 05/25/21 10:42 Urine Urobilinogen < 2.0 mg/dL (<2.0) 05/25/21 10:42 Ur Leukocyte Esterase Neg (Negative) 05/25/21 10:42 Urine WBC (Auto) 11.0 /HPF (0.0-6.0) H 05/25/21 10:42 Urine RBC (Auto) 1.0 /HPF (0.0-6.0) 05/25/21 10:42 U Epithel Cells (Auto) < 1.0 /HPF (0-13.0) 05/25/21 10:42 Urine Bacteria (Auto) 4+ /HPF (Negative) 05/25/21 10:42 Urine Mucus Few /HPF 05/25/21 10:42 Coronavirus (PCR) Negative (Negative) 05/30/21 08:15 Blood Type O POSITIVE 05/25/21 14:07 Antibody Screen Negative 05/25/21 14:07 Tan/IV: Voiding Method External Female Catheter Active Medications - Current Medications Current Medications: Generic Name Dose Route Start Last Admin Trade Name Freq PRN Reason Stop Dose Admin Acetaminophen 650 mg 05/25/21 13:48 05/28/21 04:14 Acetaminophen 325 Mg Tab PO 650 mg Q6H PRN Administration Pain MILD(1-3)/Fever >100.5/SOTOMAYOR Lipase/Protease/Amylase 1 each 05/26/21 10:00 Lipase 10,500/Protease 25,000/Amylase 43,750 (Units) Dr Munguia FEEDTUBE PRN PRN For Clogged Feeding Tube Bisacodyl 10 mg 06/08/21 10:00 Bisacodyl 10 Mg Rect Supp PA QDAY PRN Constipation Dextrose 50 ml 05/28/21 14:28 Dextrose 50% In Water (25gm) 50 Ml Syringe IV Q30MIN PRN Hypoglycemia Protocol Docusate Sodium 100 mg 06/08/21 10:00 06/14/21 09:21 Docusate Sodium 100 Mg/10 Ml Oral Liqd PO 100 mg BID ABDIRAHMAN Administration Doxazosin Mesylate 2 mg 06/01/21 12:00 06/14/21 09:21 Doxazosin 1 Mg Tab PO 2 mg BID ABDIRAHMAN Administration Famotidine 20 mg 05/29/21 10:00 06/14/21 09:21 Famotidine 20 Mg Tab FEEDTUBE 20 mg BID ABDIRAHMAN Administration Glycopyrrolate 2 mg 06/01/21 09:00 06/14/21 14:31 Glycopyrrolate 2 Mg Tab PO 2 mg TID ABDIRAHMAN Administration Heparin Sodium (Porcine) 2,700 unit 05/25/21 13:41 06/13/21 15:20 Heparin 10,000 Units/10 Ml Vial 40 unit/kg (2700 unit) 2,700 unit IV Administration Q6H PRN Anti-Xa Assay < 0.1 units/ml Hydralazine HCl 10 mg 06/01/21 11:43 06/07/21 17:23 Hydralazine 20 Mg/1 Ml Inj IV 10 mg Q4HR PRN Administration SBP >160 Hydralazine HCl 50 mg 06/03/21 22:00 06/14/21 14:30 Hydralazine 25 Mg Tab PO 50 mg Q8HR ABDIRAHMAN Administration Hydrophilic Ointment 1 applic 05/25/21 19:04 Lip Therapy Vaseline TP Q2HR PRN Dry Lips Heparin Sodium/Sodium Chloride 25,000 unit in 500 mls @ 20 mls/hr 05/25/21 15:00 06/14/21 14:30 Heparin/ 0.45% Nacl-25,000 Unit/500 Ml IV 1,050 units/hr TITRATE ABDIRAHMAN 21 mls/hr Administration Protocol 1,000 UNITS/HR Insulin Glargine 30 units 06/15/21 22:00 Insulin Glargine 100 Units/Ml SUB-Q QHS ABDIRAHMAN Insulin Human Lispro 0 unit 05/29/21 12:00 06/14/21 13:00 Insulin Lispro 100 Unit/Ml SUB-Q 3 unit Q6HR ABDIRAHMAN Administration Protocol Labetalol HCl 300 mg 06/03/21 13:40 06/14/21 09:20 Labetalol 100 Mg Tab PO 300 mg BID ABDIRAHMAN Administration Levetiracetam 250 mg 06/01/21 22:00 06/14/21 09:19 Levetiracetam 500 Mg/5 Ml Oral Liqd FEEDTUBE 250 mg Q12HR ABDIRAHMAN Administration Multi-Ingred Cream/Lotion/Oil/Oint 1 applic 05/25/21 19:04 Mineral Oil/Petrolatum, White Ophth Oint 3.5 Gm OU Q4HR PRN Dry Eye(s) Polyethylene Glycol 17 gm 06/05/21 11:00 06/14/21 09:20 Polyethylene Glycol 3350 17 Gm Powder PO 17 gm QDAY ABDIRAHMAN Administration Senna/Docusate Sodium 1 tab 05/25/21 22:00 06/14/21 09:20 Sennosides/Docusate Sodium 8.6/50 Mg Tab FEEDTUBE 1 tab BID ABDIRAHMAN Administration Simple Syrup 15 ml 05/26/21 10:00 Simple Syrup 15 Ml FEEDTUBE PRN PRN Hypoglycemia Simple Syrup 30 ml 05/26/21 10:00 Simple Syrup 15 Ml FEEDTUBE PRN PRN Hypoglycemia Sodium Bicarbonate 325 mg 05/26/21 10:00 Sodium Bicarbonate 325 Mg Tab FEEDTUBE PRN PRN For Clogged Feeding Tube Sodium Chloride 10 ml 05/25/21 22:00 06/14/21 09:27 Sodium Chloride 0.9% 10 Ml Flush Syringe IV 10 ml BID ABDIRAHMAN Administration Sodium Chloride 10 ml 05/25/21 13:48 06/04/21 03:57 Sodium Chloride 0.9% 10 Ml Flush Syringe IV 10 ml PRN PRN Administration LINE FLUSH Valsartan 160 mg 06/11/21 10:00 06/14/21 09:31 Valsartan 160mg Tab PO 160 mg BID ABDIRAHMAN Administration Nutrition/Malnutrition Assess - Dietary Evaluation Nutrition/Malnutrition Findings: Nutrition Notes Start: 05/26/21 09:00 Freq: Status: Active Protocol: Document 06/13/21 10:34 GB (Rec: 06/13/21 10:47 GB [id number]) Nutrition Notes Need for Assessment generated from: MD Order Initial or Follow up Reassessment Current Diagnosis COPD,Diabetes,Sepsis, Hypertension,Respiratory Failure Other Pertinent Diagnosis cardiac arrest, seizure disorder, (06/12: Trach/PEG) Labs/Tests 06/13: Na 149, K 5.1, BUN 52, creatinine 1.6, glucose 231, AST 69, ALT 74, AlkP 197 Pertinent Medications NaCl Height 5 ft 4 in Weight 63 kg [place] Body Weight (kg) 54.54 BMI 23.8 Weight change and time frame -6.6% since admission No new weights after 06/07 Weight Status Appropriate Subjective/Other Information 06/12: Trach/PEG 06/12: TF formula changed to glucerna 1.2 r/t altered labs and now with trach/peg Last BM 06/10 Percent of energy/protein needs met: TF goal rate meets 75% or greater of estimated energy needs Burn Absent Trauma Absent GI Symptoms None Difficulty In Swallowing Food Allergy No Current % PO Other Minimum of two criteria No #1 Nutrition Diagnosis Inadequate oral intake Comments: 06/02: On vent. TF continues. 06/07: Ventilation continues, TF continues. 06/13: Trach/PEG on 06/12, change formula to glucerna 1.2 Etiology ARF As Evidenced by Signs and Symptoms pt on vent and unable to consume PO Diagnosis Progress(for reassessment Continues documentation) Is patient on ventilator? Yes Is Patient Ambulatory and/or Out of Bed No REE-([facility]-confined to bed) 1385.676 Kcal/Kg value to use for calculation 23 Approximate Energy Requirements Using 1449 kcal/Kg Calculation Used for Recommendations Kcal/kg Additional Notes Protein: (1-1.5g/kg @63kg) 63- 95g Fluid: 1 ml/kcal or per MD Nutrition Intervention Change Diet Order: Continue NPO Nutrition Support: Vital AF 1.2 at 50 ml/hr Flush 75 ml q4h 06/07: continues 06/13: Trach/PEG on 06/12, change formula to glucerna 1.2 Kcal 1,440 Protein (gm) 72 Fat (gm) 72 Fluid (mL) 966 Goal #1 Meet 75% or greater of protein and energy needs via TF 06/13: TF at goal meets 100% estimated energy needs: met, continues Goal #2 Change TF formula. Complete current vital 1.2 bottle, change to glucerna 1.2 r/t DM and related lab results Follow-Up By: 06/19/21 Additional Comments f/u: formula change to glucerna 1.2, at goal 50ml/hr, weight, labs
[2021-06-15] MEDS: INSULIN LISPRO 100 UNIT/ML SUB-Q SCH ×4 (00:49→18:03)
[2021-06-15 05:40] LABS: Hematocrit 22.5 % (30.3-42.9); Hemoglobin 7.3 gm/dl (10.1-14.3); Mean Corpuscular HGB Conc 32 % (30-34); Mean Corpuscular Volume 101 fl (79-97); Platelet Count 245 K/mm3 (140-440); Red Blood Count 2.23 M/mm3 (3.65-5.03)
[2021-06-15 05:55] LABS: Calcium 8.2 mg/dL (8.4-10.2)
[2021-06-15] MEDS: hydrALAZINE 25 MG TAB PO SCH ×3 (07:38→22:24)
--- NOTE | 2021-06-15 08:28 | XRay Report ---
CHEST 1 VIEW 06/15/2021 7:21 AM INDICATION / CLINICAL INFORMATION: fever. COMPARISON: 06/14/21 FINDINGS: SUPPORT DEVICES: Tracheostomy tube is unchanged. HEART / MEDIASTINUM: Stable. LUNGS / PLEURA: Patchy bilateral pulmonary opacities are unchanged. No pneumothorax. ADDITIONAL FINDINGS: No significant additional findings. IMPRESSION: 1. No significant change. Signer Name: Kyleigh Melo MD Signed: 06/15/2021 8:23 AM Workstation Name: [id number]
[2021-06-15] MEDS: levETIRAcetam 500 MG/5 ML ORAL LIQD FEEDTUBE SCH ×3 (11:25→22:24)
[2021-06-15] MEDS: FAMOTIDINE 20 MG TAB FEEDTUBE SCH ×3 (11:26→22:24)
[2021-06-15] MEDS: DOXAZOSIN 1 MG TAB PO SCH ×3 (11:26→22:24)
[2021-06-15] MEDS: POLYETHYLENE GLYCOL 3350 17 GM POWDER PO SCH ×2 (11:26→11:29)
[2021-06-15] MEDS: SENNOSIDES/DOCUSATE SODIUM 8.6/50 MG TAB FEEDTUBE SCH ×3 (11:26→22:00)
[2021-06-15] MEDS: DOCUSATE SODIUM 100 MG/10 ML ORAL LIQD PO SCH ×3 (11:26→22:00)
[2021-06-15] MEDS: VALSARTAN 160MG TAB PO SCH ×3 (11:26→22:23)
[2021-06-15] MEDS: FREE WATER PO SCH ×4 (11:30→22:00)
[2021-06-15] MEDS: GLYCOPYRROLATE 2 MG TAB PO SCH (11:31)
--- NOTE | 2021-06-15 12:25 | Progress Note ---
<JERAMY HERRING - Last Filed: 06/15/21 13:40> Assessment and Plan Assessment and plan: This is a 65 year old female with HTN, nonepileptic spells, PTSD, close head injury, DM, CAD s/p stents and OK, independence, hyperlipidemia admitted with sepsis, pneumonia, acute proximal respiratory failure, toxic metabolic enceph alopathy, suspected anoxic brain injury, metabolic acidosis Neuro: Toxic metabolic encephalopathy, likely anoxic brain injury, tonic-cloninc seziure; h/o nonepileptic spells, PTSD, closed head injury -Neurology consulted, appreciate recommendations -CT head completed->see results, without acute or large territorial infarct -Per neurology: MRI brain is suggestive of water shed Infarct Bilateral -- mostly related to Hypoperfusion -06/01 repeat MRI brain noted, possible subacute ischemic changes. -Off sedation -Intact cough/gag, pupils sluggish -Keppra -EEG showed no signs of seizure -prn ativan -Patient is off sedation, open eyes spontaneously, pupils reactive, with +gag and cough. -Not following commands, no movement to stimuli Cardio: S/p cardiac arrest, A. fib with RVR, h/o HTN -Currently on Labetalol, Hydralazine, valsartan, & Doxazosin -PRN hydral IV -Cardiology consulted, appreciate recommendations -05/2020 dobutamine thallium stress test showed normal perfusion study. -05/2020 echo showed normal left ventricular systolic function. -NIBP per protocol Resp: Acute hypoxic respiratory failure -CCM consulted, appreciate recommendations -Intubated 05/25 with 7.0 oett at 23 lip, trach on 06/12 -06/15 T piece trials started -see RT notes for titration -ABG/CXR -Continuous SP02 monitoring -Scopalamine and robinul for secretions -discontinued today -VAP bundle GI: protein -aspen malnutrition -Ntr consult for TF -PEG placed 06/12 -PPI -24hr +1630 -BR: senokot, maalox, colace; prn dulcolex -BM: 06/10 : Acute renal injury likely 2/2 to vasomotor nephrology -increase noted in bun/cr 06/13 -strict I&O -daily weights -urine lytes ordered -candie -Trend BMP -Monitor and replete electrolytes as needed -FWF 250 q 4hours -hypernatremia and Cr slightly improving Endo: Hyperglycemia, h/o DM -SSI -Lantus, titrate as needed -Avoid hypoglycemia -accucheck q6 Heme: Leukocytosis -CTA chest without evidence of PE -IV heparin d/t afib -transitioned to PO -CAMILO-VASC2 score 4 -Trend CBC -Transfuse for hgb<7 ID: Sepsis, Bilateral Lower Lobe Infiltrates -COVID 19 PCR (-) -s/p cefepime 05/25-05/29 -admit cxr with infiltrates, CTA chest with dense dependent consolidation/atelectasis in lungs -Monitor temp and WBC curve -noted spike in temp overnight -CXR, Blood culture, UA, Sputum culture ordered -BC/UC/Tracheal aspirate NGTD from 05/25 -Covid 19 PCR negative -06/07 CRP 28.90 and procal 0.36 Dispo: pending LTACH The high probability of a clinically significant, sudden or life threatening deterioration of the [multiple] system(s) required my full and direct attention, intervention and personal management. The aggregate critical care time was [60] minutes. This time is in addition to time spent performing reported procedures but includes the following: [x] Data Review and interpretation [x] Patient assessment and monitoring of vital signs [x] Documentation [x] Medication orders and management Disposition Plan: icu Total Time Spent with Patient (Minutes): 60 History Interval history: 65-year-old female, history of nonepileptic spells, PTSD, closed head injury, hypertension, diabetes, CAD, presents to the ED following cardiac arrest. EMS states Patient collapsed and became unresponsive. Patient was pulseless and apneic. Rhythm was asystole. Patient was intubated by EMS. She was given epi x2. ACLS times approximately 10 minutes followed by return of pulses. Accu- Chek in the 200s. With initial rhythm check here in ED, patient was pulseless, so ACLS restarted. Patient has return of pulse and noted to be in atrial fib, initiated on iv keppra and heparin drip. 05/26/21: Updated family at the bedside, Covid test is negative. Will order EEG and neuro consult. Remains intubated, follow clinically. Sedated on Midazolam a nd Propofol, just received one dose of Lorazepam for witnessed seizure by RN. NSR now, on heparin drip 05/27/21; remains intubated. pending EEG and neuro eval. wean off vent as tolerated. Continue heparin drip per cardiology, replete potassium yesterday, follow BMP. BP noted to be elevated, next started on antihypertensives. 05/28/21; BP noted to be elevated, initiated on antihypertensive, remains intubated. Pending neurology evaluation and EEG. Continue supportive care, follow BMP. 05/29/21: Ordered for MRI brain, continue Keppra, pending EEG. Appreciate neuro recommendation. follow BMP, tolerating TF 05/30/21: Patient remains intubated, pending MRI brain, follow neurology recommendation. EEG showed diffuse slowing. 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 off sedation now, cont to follow. gurded prognosis 06/01: MRI was suggestive of watershed infarct bilaterally and was seen by neurology and recommend to do MRI with gadolinium. Patient is off sedation and still unresponsive. Prognosis is guarded. 06/02: Continue current management. Prognosis is guarded. Patient needs trach. 06/03: Patient is unresponsive spite of all sedatives. Prognosis is guarded to poor. Neurology consult appreciated. 06/04: Patient is unresponsive. Patient is off sedatives. Blood sugar is uncontrolled and I adjusted her insulin. Neurology consult appreciated. Prognosis is guarded to poor. 06/05/21- Patient remains ETT and on vent support. Off sedation with some improvement in neuro status, but is not following commands. Patient is tolerating SBT trial this am, still on the heparin gtt. AM labs is pending. Patient is still hyperglycemic, increased Qhs lantus. Continue supportive care. 06/06/21- Patient is intubated and on the vent. No longer on sedation, awake but unresponsive, tolerating SBT. Hyperglycemia this am, X1 dose of kayaxalate orderd. Persistent hyperglycemia, insulin adjusted. Continue to monitor electrolytes, repeat BMP this afternoon and am labs ordered. 06/07/21- Patient remains intubated and on the vent. Neuro status is unchanged, spontaneously open yes but is not following commands. SBT trial again, plan to place back on a rate overnight. Leukocytosis noted from this morning lab, stat procalc and CRP ordered, d/w CCM no abx at this time. K 5.4 today, kayalalxate given. Continue to monitor leukocytosis and electrolytes. Am labs ordered 06/08/21- Patient remains intubated and on the vent with no significant change in her neuro status. Patient with no BM in 7days, abdominal soft with positive bowel sounds, colace added and PRN ducolax Supp PRN. Continue to monitor leuk ocytosis and electrolytes, am labs ordered. Plan for trach and PEG, surgery consulted. 06/09/21- Patient remains stable, intubated with no significant change in neuro status. Trach and Peg cancelled for today. Plan for possibly next week. Hyperkalemia again today, chart review for possible meds interaction. X1 dose of kayexalate ordered. Still no BM today. Episode of emesis today, TF held and NGT to LIS until tommorrow. Orders place for KUB today and Chest XR for the morning. Morning labs ordered. 06/10: Continue supportive care. Trach and PEG planned for early next week. KUB and x-ray with no significant change. Opacity still persist. Critical care management noted. Patient still persistent leukocytosis we will continue to monitor mild hypokalemia noted will replace with potassium. Also noted mild hypernatremia. Agree with holding tube feeds at this time 06/11: Discussed with nursing staff to change to history trickle feeds. Patient is planned for trach and PEG Saturday or Saturday. Continue current management also discussed to hold heparin drip for planned procedure with noted timeframe. We will recheck labs to ensure correction of electrolytes. 06/12/21- Patient's status is unchanged. No significant events overnight. Plan for trach and PEG today. TF and heparin gtt on hold. Continue supportive care. Continue to monitor electrolytes, am labs ordered. 06/13/21- Patient is s/p trach and PEG. D/w surgery okay to use PEGTube and restart TF. Heparin gtt was also restarted per protocol. Persistent hypernatremia and FWF increased for 48hrs, mild hyperkalemia noted no intervention at this time. Continue to monitor renal function and electrolytes, am labs ordered. 06/14: Transition to PO anticoagulation from heparin gtt tomorrow. plan to place on tpiece tomorrow. 06/15: Patient spiked a temp today and was root cultured, h/h decreasing and stool occult ordered. Increase in insulin. T piece trials today. Small volume emesis x2 Hospitalist Physical - Constitutional Vitals: Temp Pulse Resp BP Pulse Ox 98.7 F 74 25 H 135/53 100 06/15/21 07:54 06/15/21 12:00 06/15/21 12:00 06/15/21 12:00 06/15/21 12:00 General appearance: Present: no acute distress - EENT Eyes: Present: PERRL, EOM intact ENT: dentition normal - Neck Neck: Present: normal ROM - Respiratory Respiratory effort: normal Respiratory: bilateral: diminished - Cardiovascular Rhythm: regular Heart Sounds: Present: S1 & S2. Absent: systolic murmur, diastolic murmur - Extremities Extremities: no ischemia, pulses intact, pulses symmetrical, No edema, normal temperature, normal color Peripheral Pulses: within normal limits - Abdominal General gastrointestinal: soft, non-tender, non-distended, normal bowel sounds - Integumentary Integumentary: Present: warm, dry - Psychiatric Psychiatric: cooperative - Neurologic Neurologic: CNII-XII intact, no focal deficits, moves all extremities - Allied Health Allied health notes reviewed: nursing, RT, social work HEART Score - HEART Score Troponin: Troponin T 0.226 ng/mL (0.00-0.029) H* D 05/25/21 15:19 Results - Labs CBC & Chem 7: 06/15/21 05:08 06/15/21 05:08 Labs: Laboratory Last Values WBC 15.3 K/mm3 (4.5-11.0) H 06/15/21 05:08 RBC 2.23 M/mm3 (3.65-5.03) L 06/15/21 05:08 Hgb 7.3 gm/dl (10.1-14.3) L 06/15/21 05:08 Hct 22.5 % (30.3-42.9) L 06/15/21 05:08 MCV 101 fl (79-97) H 06/15/21 05:08 MCH 33 pg (28-32) H 06/15/21 05:08 MCHC 32 % (30-34) 06/15/21 05:08 RDW 15.0 % (13.2-15.2) 06/15/21 05:08 Plt Count 245 K/mm3 (140-440) 06/15/21 05:08 Lymph % (Auto) 14.3 % (13.4-35.0) 05/28/21 04:00 Mcdowell % (Auto) 6.9 % (0.0-7.3) 05/28/21 04:00 Eos % (Auto) 0.1 % (0.0-4.3) 05/28/21 04:00 Baso % (Auto) 0.5 % (0.0-1.8) 05/28/21 04:00 Lymph # (Auto) 1.9 K/mm3 (1.2-5.4) 05/28/21 04:00 [place]cdowell # (Auto) 0.9 K/mm3 (0.0-0.8) H 05/28/21 04:00 Eos # (Auto) 0.0 K/mm3 (0.0-0.4) 05/28/21 04:00 Baso # (Auto) 0.1 K/mm3 (0.0-0.1) 05/28/21 04:00 Add Manual Diff Complete 06/08/21 04:25 Total Counted 100 06/08/21 04:25 Seg Neutrophils % 78.2 % (40.0-70.0) H 05/28/21 04:00 Seg Neuts % (Manual) 76.0 % (40.0-70.0) H 06/08/21 04:25 Band Neutrophils % 4.0 % 06/08/21 04:25 Lymphocytes % (Manual) 6.0 % (13.4-35.0) L 06/08/21 04:25 Monocytes % (Manual) 8.0 % (0.0-7.3) H 06/08/21 04:25 Eosinophils % (Manual) 1.0 % (0.0-4.3) 06/08/21 04:25 Metamyelocytes % 3.0 % 06/08/21 04:25 Myelocytes % 2.0 % 06/08/21 04:25 Nucleated RBC % Not Reportable 06/08/21 04:25 Seg Neutrophils # 10.6 K/mm3 (1.8-7.7) H 05/28/21 04:00 Seg Neutrophils # Man 12.0 K/mm3 (1.8-7.7) H 06/08/21 04:25 Band Neutrophils # 0.6 K/mm3 06/08/21 04:25 Lymphocytes # (Manual) 0.9 K/mm3 (1.2-5.4) L 06/08/21 04:25 Abs React Lymphs (Man) 0.0 K/mm3 06/08/21 04:25 Monocytes # (Manual) 1.3 K/mm3 (0.0-0.8) H 06/08/21 04:25 Eosinophils # (Manual) 0.2 K/mm3 (0.0-0.4) 06/08/21 04:25 Basophils # (Manual) 0.0 K/mm3 (0.0-0.1) 06/08/21 04:25 Metamyelocytes # 0.5 K/mm3 06/08/21 04:25 Myelocytes # 0.3 K/mm3 06/08/21 04:25 Promyelocytes # 0.0 K/mm3 06/08/21 04:25 Blast Cells # 0.0 K/mm3 06/08/21 04:25 WBC Morphology Not Reportable 06/08/21 04:25 Hypersegmented Neuts Not Reportable 06/08/21 04:25 Hyposegmented Neuts Not Reportable 06/08/21 04:25 Hypogranular Neuts Not Reportable 06/08/21 04:25 Smudge Cells Not Reportable 06/08/21 04:25 Toxic Granulation Not Reportable 06/08/21 04:25 Toxic Vacuolation Not Reportable 06/08/21 04:25 Dohle Bodies Not Reportable 06/08/21 04:25 Pelger-Huet Anomaly Not Reportable 06/08/21 04:25 Peter Rods Not Reportable 06/08/21 04:25 Platelet Estimate Consistent w auto 06/08/21 04:25 Clumped Platelets Not Reportable 06/08/21 04:25 Plt Clumps, EDTA Not Reportable 06/08/21 04:25 Large Platelets Not Reportable 06/08/21 04:25 Giant Platelets Not Reportable 06/08/21 04:25 Platelet Satelliting Not Reportable 06/08/21 04:25 Plt Morphology Comment Not Reportable 06/08/21 04:25 RBC Morphology Not Reportable 06/08/21 04:25 Dimorphic RBCs Not Reportable 06/08/21 04:25 Polychromasia Not Reportable 06/08/21 04:25 Hypochromasia Not Reportable 06/08/21 04:25 Poikilocytosis Not Reportable 06/08/21 04:25 Anisocytosis Not Reportable 06/08/21 04:25 Microcytosis Not Reportable 06/08/21 04:25 Macrocytosis Not Reportable 06/08/21 04:25 Spherocytes Not Reportable 06/08/21 04:25 Pappenheimer Bodies Not Reportable 06/08/21 04:25 Sickle Cells Not Reportable 06/08/21 04:25 Target Cells Not Reportable 06/08/21 04:25 Tear Drop Cells Not Reportable 06/08/21 04:25 Ovalocytes Not Reportable 06/08/21 04:25 Helmet Cells Not Reportable 06/08/21 04:25 [place] Bodies Not Reportable 06/08/21 04:25 [place] Rings Not Reportable 06/08/21 04:25 Lin Cells Not Reportable 06/08/21 04:25 Bite Cells Not Reportable 06/08/21 04:25 Crenated Cell Not Reportable 06/08/21 04:25 Elliptocytes Not Reportable 06/08/21 04:25 Acanthocytes (Spur) Not Reportable 06/08/21 04:25 Rouleaux Not Reportable 06/08/21 04:25 Hemoglobin C Crystals Not Reportable 06/08/21 04:25 Schistocytes Not Reportable 06/08/21 04:25 Malaria parasites Not Reportable 06/08/21 04:25 Shravan Bodies Not Reportable 06/08/21 04:25 Hem Pathologist Commnt No 06/08/21 04:25 PT 14.6 Sec. (12.2-14.9) 06/09/21 05:20 INR 1.09 (0.87-1.13) 06/09/21 05:20 APTT 25.4 Sec. (24.2-36.6) 06/13/21 10:44 D-Dimer > 69445 ng/mlDDU (0-234) H 05/25/21 09:21 Heparin Anti-Xa Level 0.50 U.I./ml (0.3-0.7) 06/15/21 05:08 ABG pH 7.471 (7.320-7.450) H 06/15/21 10:19 POC ABG pCO2 40.4 mmHg (32.0-48.0) 06/15/21 10:19 ABG pCO2 30.3 mm Hg 05/29/21 05:28 POC ABG pO2 90.1 mmHg (83-108) 06/15/21 10:19 ABG pO2 96.2 mm Hg (80.0-90.0) H 05/29/21 05:28 POC ABG HCO3 28.8 06/15/21 10:19 ABG HCO3 24.0 mmol/L (20.0-26.0) 05/29/21 05:28 ABG O2 Saturation 97.4 (0-100) 06/15/21 10:19 ABG O2 Content 10.3 (0.0-44) 05/29/21 05:28 POC ABG Base Excess 4.8 06/15/21 10:19 ABG Base Excess 1.2 mmol/L (-2.0-3.0) 05/29/21 05:28 ABG Hemoglobin 8.6 (12.0-17.5) L 06/13/21 11:07 ABG Oxyhemoglobin 96.0 (94-98) 06/15/21 10:19 ABG Carboxyhemoglobin 1.6 % (0.0-5.0) 05/29/21 05:28 ABG Methemoglobin 0.3 (0.0-1.5) 06/13/21 11:07 ABG Sodium 144.0 mmol/L (136.0-145.0) 06/13/21 11:07 ABG Potassium 4.7 mmol/L (3.40-4.50) H 06/13/21 11:07 ABG Chloride 107.0 mmol/L (98-107) 06/13/21 11:07 ABG Glucose 277 mg/dL (65-95) H 06/13/21 11:07 Oxyhemoglobin 96.0 % (95.0-99.0) 05/29/21 05:28 Carboxyhemoglobin 1.5 (0.5-1.5) 06/15/21 10:19 FiO2 30 % 05/29/21 05:28 FiO2 % 40 10/07/21 10:19 Sodium 147 mmol/L (137-145) H 06/15/21 05:08 Potassium 4.7 mmol/L (3.6-5.0) 06/15/21 05:08 Chloride 104.9 mmol/L (98-107) 06/15/21 05:08 Carbon Dioxide 27 mmol/L (22-30) 06/15/21 05:08 Anion Gap 20 mmol/L 06/15/21 05:08 BUN 60 mg/dL (7-17) H 06/15/21 05:08 Creatinine 1.6 mg/dL (0.6-1.2) H 06/15/21 05:08 Estimated GFR 39 ml/min 06/15/21 05:08 BUN/Creatinine Ratio 38 % 06/15/21 05:08 Glucose 158 mg/dL (65-100) H 06/15/21 05:08 POC Glucose 133 mg/dL (70-105) H 06/15/21 11:25 Lactic Acid 2.30 mmol/L (0.7-2.0) H* 05/26/21 05:49 Calcium 8.2 mg/dL (8.4-10.2) L 06/15/21 05:08 Phosphorus 5.90 mg/dL (2.5-4.5) H 06/15/21 05:08 Magnesium 3.20 mg/dL (1.7-2.3) H 06/15/21 05:08 Ferritin 321.6 ng/mL (10.0-200.0) H 05/25/21 09:21 Total Bilirubin 0.50 mg/dL (0.1-1.2) 06/13/21 04:34 Direct Bilirubin < 0.2 mg/dL (0-0.2) 05/25/21 09:21 Indirect Bilirubin 0.2 mg/dL 05/25/21 09:21 AST 69 units/L (5-40) H 06/13/21 04:34 ALT 74 units/L (7-56) H 06/13/21 04:34 Alkaline Phosphatase 197 units/L (35-129) H 06/13/21 04:34 Lactate Dehydrogenase 445 units/L (91-180) H 05/25/21 09:21 Troponin T 0.226 ng/mL (0.00-0.029) H* D 05/25/21 15:19 C-Reactive Protein 28.90 mg/dL (0.00-1.30) H 06/07/21 14:52 NT-Pro-B Natriuret Pep 173.2 pg/mL (0-900) 05/25/21 09:21 Total Protein 7.5 g/dL (6.3-8.2) 06/13/21 04:34 Albumin 3.0 g/dL (3.9-5) L 06/13/21 04:34 Albumin/Globulin Ratio 0.7 % 06/13/21 04:34 Triglycerides 124 mg/dL (2-149) 05/30/21 11:19 Cholesterol 198 mg/dL (50-199) 05/25/21 15:19 LDL Cholesterol Direct 80 mg/dL (50-130) 05/25/21 15:19 HDL Cholesterol 64 mg/dL (40-59) H 05/25/21 15:19 Cholesterol/HDL Ratio 3.09 % 05/25/21 15:19 Procalcitonin 0.36 ng/mL (<0.15) 06/07/21 14:52 Arterial Blood Glucose 277 mg/dL (65-95) H 06/13/21 11:07 Arterial Blood Ionized Calcium 4.6 mg/dL (4.6-5.3) 06/02/21 04:13 Urine Color Straw (Yellow) 05/25/21 10:42 Urine Turbidity Clear (Clear) 05/25/21 10:42 Urine pH 6.0 (5.0-7.0) 05/25/21 10:42 Ur Specific [place] 1.007 (1.003-1.030) 05/25/21 10:42 Urine Protein 100 mg/dl mg/dL (Negative) 05/25/21 10:42 Urine Glucose (UA) >=500 mg/dL (Negative) 05/25/21 10:42 Urine Ketones Neg mg/dL (Negative) 05/25/21 10:42 Urine Blood Mod (Negative) 05/25/21 10:42 Urine Nitrite Neg (Negative) 05/25/21 10:42 Ur Reducing Substances Not Reportable 05/25/21 10:42 Urine Bilirubin Neg (Negative) 05/25/21 10:42 Urine Ictotest Not Reportable 05/25/21 10:42 Urine Urobilinogen < 2.0 mg/dL (<2.0) 05/25/21 10:42 Ur Leukocyte Esterase Neg (Negative) 05/25/21 10:42 Urine WBC (Auto) 11.0 /HPF (0.0-6.0) H 05/25/21 10:42 Urine RBC (Auto) 1.0 /HPF (0.0-6.0) 05/25/21 10:42 U Epithel Cells (Auto) < 1.0 /HPF (0-13.0) 05/25/21 10:42 Urine Bacteria (Auto) 4+ /HPF (Negative) 05/25/21 10:42 Urine Mucus Few /HPF 05/25/21 10:42 Coronavirus (PCR) Negative (Negative) 05/30/21 08:15 Blood Type O POSITIVE 06/15/21 08:00 Antibody Screen Negative 06/15/21 08:00 Microbiology: Microbiology 06/15/21 07:56 Peripheral/Venous Blood Culture - Preliminary Culture in Progress 06/15/21 07:56 Peripheral/Venous Blood Culture - Preliminary Culture in Progress Tan/IV: Voiding Method External Female Catheter Active Medications - Current Medications Current Medications: Generic Name Dose Route Start Last Admin Trade Name Freq PRN Reason Stop Dose Admin Acetaminophen 650 mg 05/25/21 13:48 05/28/21 04:14 Acetaminophen 325 Mg Tab PO 650 mg Q6H PRN Administration Pain MILD(1-3)/Fever >100.5/SOTOMAYOR Lipase/Protease/Amylase 1 each 05/26/21 10:00 Lipase 10,500/Protease 25,000/Amylase 43,750 (Units) Dr Munguia FEEDTUBE PRN PRN For Clogged Feeding Tube Bisacodyl 10 mg 06/08/21 10:00 Bisacodyl 10 Mg Rect Supp DC QDAY PRN Constipation Dextrose 50 ml 05/28/21 14:28 Dextrose 50% In Water (25gm) 50 Ml Syringe IV Q30MIN PRN Hypoglycemia Protocol Docusate Sodium 100 mg 06/08/21 10:00 06/15/21 11:29 Docusate Sodium 100 Mg/10 Ml Oral Liqd PO 100 mg BID ABDIRAHMAN Administration Doxazosin Mesylate 2 mg 06/01/21 12:00 06/15/21 11:30 Doxazosin 1 Mg Tab PO 2 mg BID ABDIRAHMAN Administration Famotidine 20 mg 05/29/21 10:00 06/15/21 11:30 Famotidine 20 Mg Tab FEEDTUBE 20 mg BID ABDIRAHMAN Administration Heparin Sodium (Porcine) 2,700 unit 05/25/21 13:41 06/13/21 15:20 Heparin 10,000 Units/10 Ml Vial 40 unit/kg (2700 unit) 2,700 unit IV Administration Q6H PRN Anti-Xa Assay < 0.1 units/ml Hydralazine HCl 10 mg 06/01/21 11:43 06/07/21 17:23 Hydralazine 20 Mg/1 Ml Inj IV 10 mg Q4HR PRN Administration SBP >160 Hydralazine HCl 50 mg 06/03/21 22:00 06/15/21 07:38 Hydralazine 25 Mg Tab PO 50 mg Q8HR ABDIRAHMAN Administration Hydrophilic Ointment 1 applic 05/25/21 19:04 Lip Therapy Vaseline TP Q2HR PRN Dry Lips Heparin Sodium/Sodium Chloride 25,000 unit in 500 mls @ 20 mls/hr 05/25/21 15:00 06/15/21 07:50 Heparin/ 0.45% Nacl-25,000 Unit/500 Ml IV 1,050 units/hr TITRATE ABDIRAHMAN 21 mls/hr Titration Protocol 1,000 UNITS/HR Insulin Glargine 30 units 06/15/21 22:00 Insulin Glargine 100 Units/Ml SUB-Q QHS [facility] Insulin Human Lispro 0 unit 05/29/21 12:00 06/15/21 11:32 Insulin Lispro 100 Unit/Ml SUB-Q Not Given Q6HR [facility] Protocol Labetalol HCl 300 mg 06/03/21 13:40 06/15/21 11:25 Labetalol 100 Mg Tab PO 300 mg BID ABDIRAHMAN Administration Levetiracetam 250 mg 06/01/21 22:00 06/15/21 11:30 Levetiracetam 500 Mg/5 Ml Oral Liqd FEEDTUBE 250 mg Q12HR ABDIRAHMAN Administration Multi-Ingred Cream/Lotion/Oil/Oint 1 applic 05/25/21 19:04 Mineral Oil/Petrolatum, White Ophth Oint 3.5 Gm OU Q4HR PRN Dry Eye(s) Polyethylene Glycol 17 gm 06/05/21 11:00 06/15/21 11:29 Polyethylene Glycol 3350 17 Gm Powder PO 17 gm QDAY ABDIRAHMAN Administration Senna/Docusate Sodium 1 tab 05/25/21 22:00 06/15/21 11:29 Sennosides/Docusate Sodium 8.6/50 Mg Tab FEEDTUBE 1 tab BID ABDIRAHMAN Administration Simple Syrup 15 ml 05/26/21 10:00 Simple Syrup 15 Ml FEEDTUBE PRN PRN Hypoglycemia Simple Syrup 30 ml 05/26/21 10:00 Simple Syrup 15 Ml FEEDTUBE PRN PRN Hypoglycemia Sodium Bicarbonate 325 mg 05/26/21 10:00 Sodium Bicarbonate 325 Mg Tab FEEDTUBE PRN PRN For Clogged Feeding Tube Sodium Chloride 10 ml 05/25/21 22:00 06/15/21 11:32 Sodium Chloride 0.9% 10 Ml Flush Syringe IV 10 ml BID ABDIRAHMAN Administration Sodium Chloride 10 ml 05/25/21 13:48 06/04/21 03:57 Sodium Chloride 0.9% 10 Ml Flush Syringe IV 10 ml PRN PRN Administration LINE FLUSH Valsartan 160 mg 06/11/21 10:00 06/15/21 11:29 Valsartan 160mg Tab PO 160 mg BID ABDIRAHMAN Administration Nutrition/Malnutrition Assess - Dietary Evaluation Nutrition/Malnutrition Findings: Nutrition Notes Start: 05/26/21 09:00 Freq: Status: Active Protocol: Document 06/13/21 10:34 GB (Rec: 06/13/21 10:47 GB [id number]) Nutrition Notes Need for Assessment generated from: MD Order Initial or Follow up Reassessment Current Diagnosis COPD,Diabetes,Sepsis, Hypertension,Respiratory Failure Other Pertinent Diagnosis cardiac arrest, seizure disorder, (06/12: Trach/PEG) Labs/Tests 06/13: Na 149, K 5.1, BUN 52, creatinine 1.6, glucose 231, AST 69, ALT 74, AlkP 197 Pertinent Medications NaCl Height 5 ft 4 in Weight 63 kg [place] Body Weight (kg) 54.54 BMI 23.8 Weight change and time frame -6.6% since admission No new weights after 06/07 Weight Status Appropriate Subjective/Other Information 06/12: Trach/PEG 06/12: TF formula changed to glucerna 1.2 r/t altered labs and now with trach/peg Last BM 10/2 Percent of energy/protein needs met: TF goal rate meets 75% or greater of estimated energy needs Burn Absent Trauma Absent GI Symptoms None Difficulty In Swallowing Food Allergy No Current % PO Other Minimum of two criteria No #1 Nutrition Diagnosis Inadequate oral intake Comments: 06/02: On vent. TF continues. 06/07: Ventilation continues, TF continues. 06/13: Trach/PEG on 06/12, change formula to glucerna 1.2 Etiology ARF As Evidenced by Signs and Symptoms pt on vent and unable to consume PO Diagnosis Progress(for reassessment Continues documentation) Is patient on ventilator? Yes Is Patient Ambulatory and/or Out of Bed No REE-([place] [facility]-confined to bed) 1385.676 Kcal/Kg value to use for calculation 23 Approximate Energy Requirements Using 1449 kcal/Kg Calculation Used for Recommendations Kcal/kg Additional Notes Protein: (1-1.5g/kg @63kg) 63- 95g Fluid: 1 ml/kcal or per MD Nutrition Intervention Change Diet Order: Continue NPO Nutrition Support: Vital AF 1.2 at 50 ml/hr Flush 75 ml q4h 06/07: continues 06/13: Trach/PEG on 06/12, change formula to glucerna 1.2 Kcal 1,440 Protein (gm) 72 Fat (gm) 72 Fluid (mL) 966 Goal #1 Meet 75% or greater of protein and energy needs via TF 06/13: TF at goal meets 100% estimated energy needs: met, continues Goal #2 Change TF formula. Complete current vital 1.2 bottle, change to glucerna 1.2 r/t DM and related lab results Follow-Up By: 06/19/21 Additional Comments f/u: formula change to glucerna 1.2, at goal 50ml/hr, weight, labs <BRANDON BACH - Last Filed: 06/15/21 17:47> History Interval history: I have seen and examined the patient this morning at the bedside patient status post trach and PEG placed on T-piece today Spiked fever, pancultures sent, mild decreasing H&H, stool for occult blood and closely monitor transfuse as needed. I reviewed the chart, tests and reports I also reviewed and agree with the evaluation, management and the below documentation by the nurse practitioner with few additions Closely monitor patient and adjust management as needed Consults and recommendations noted and appreciated Hospitalist Physical - Constitutional Vitals: Temp Pulse Resp BP Pulse Ox 98.2 F 84 20 129/57 100 06/15/21 12:00 06/15/21 16:29 06/15/21 16:00 06/15/21 16:29 06/15/21 16:29 HEART Score - HEART Score Troponin: Troponin T 0.226 ng/mL (0.00-0.029) H* D 05/25/21 15:19 Results - Labs CBC & Chem 7: 06/15/21 05:08 06/15/21 05:08 Labs: Laboratory Last Values WBC 15.3 K/mm3 (4.5-11.0) H 06/15/21 05:08 RBC 2.23 M/mm3 (3.65-5.03) L 06/15/21 05:08 Hgb 7.3 gm/dl (10.1-14.3) L 06/15/21 05:08 Hct 22.5 % (30.3-42.9) L 06/15/21 05:08 MCV 101 fl (79-97) H 06/15/21 05:08 MCH 33 pg (28-32) H 06/15/21 05:08 MCHC 32 % (30-34) 06/15/21 05:08 RDW 15.0 % (13.2-15.2) 06/15/21 05:08 Plt Count 245 K/mm3 (140-440) 06/15/21 05:08 Lymph % (Auto) 14.3 % (13.4-35.0) 05/28/21 04:00 [place] % (Auto) 6.9 % (0.0-7.3) 05/28/21 04:00 Eos % (Auto) 0.1 % (0.0-4.3) 05/28/21 04:00 Baso % (Auto) 0.5 % (0.0-1.8) 05/28/21 04:00 Lymph # (Auto) 1.9 K/mm3 (1.2-5.4) 05/28/21 04:00 [place] # (Auto) 0.9 K/mm3 (0.0-0.8) H 05/28/21 04:00 Eos # (Auto) 0.0 K/mm3 (0.0-0.4) 05/28/21 04:00 Baso # (Auto) 0.1 K/mm3 (0.0-0.1) 05/28/21 04:00 Add Manual Diff Complete 06/08/21 04:25 Total Counted 100 06/08/21 04:25 Seg Neutrophils % 78.2 % (40.0-70.0) H 05/28/21 04:00 Seg Neuts % (Manual) 76.0 % (40.0-70.0) H 06/08/21 04:25 Band Neutrophils % 4.0 % 06/08/21 04:25 Lymphocytes % (Manual) 6.0 % (13.4-35.0) L 06/08/21 04:25 Monocytes % (Manual) 8.0 % (0.0-7.3) H 06/08/21 04:25 Eosinophils % (Manual) 1.0 % (0.0-4.3) 06/08/21 04:25 Metamyelocytes % 3.0 % 06/08/21 04:25 Myelocytes % 2.0 % 06/08/21 04:25 Nucleated RBC % Not Reportable 06/08/21 04:25 Seg Neutrophils # 10.6 K/mm3 (1.8-7.7) H 05/28/21 04:00 Seg Neutrophils # Man 12.0 K/mm3 (1.8-7.7) H 06/08/21 04:25 Band Neutrophils # 0.6 K/mm3 06/08/21 04:25 Lymphocytes # (Manual) 0.9 K/mm3 (1.2-5.4) L 06/08/21 04:25 Abs React Lymphs (Man) 0.0 K/mm3 06/08/21 04:25 Monocytes # (Manual) 1.3 K/mm3 (0.0-0.8) H 06/08/21 04:25 Eosinophils # (Manual) 0.2 K/mm3 (0.0-0.4) 06/08/21 04:25 Basophils # (Manual) 0.0 K/mm3 (0.0-0.1) 06/08/21 04:25 Metamyelocytes # 0.5 K/mm3 06/08/21 04:25 Myelocytes # 0.3 K/mm3 06/08/21 04:25 Promyelocytes # 0.0 K/mm3 06/08/21 04:25 Blast Cells # 0.0 K/mm3 06/08/21 04:25 WBC Morphology Not Reportable 06/08/21 04:25 Hypersegmented Neuts Not Reportable 06/08/21 04:25 Hyposegmented Neuts Not Reportable 06/08/21 04:25 Hypogranular Neuts Not Reportable 06/08/21 04:25 Smudge Cells Not Reportable 06/08/21 04:25 Toxic Granulation Not Reportable 06/08/21 04:25 Toxic Vacuolation Not Reportable 06/08/21 04:25 Dohle Bodies Not Reportable 06/08/21 04:25 Pelger-Huet Anomaly Not Reportable 06/08/21 04:25 Peter Rods Not Reportable 06/08/21 04:25 Platelet Estimate Consistent w auto 06/08/21 04:25 Clumped Platelets Not Reportable 06/08/21 04:25 Plt Clumps, EDTA Not Reportable 06/08/21 04:25 Large Platelets Not Reportable 06/08/21 04:25 Giant Platelets Not Reportable 06/08/21 04:25 Platelet Satelliting Not Reportable 06/08/21 04:25 Plt Morphology Comment Not Reportable 06/08/21 04:25 RBC Morphology Not Reportable 06/08/21 04:25 Dimorphic RBCs Not Reportable 06/08/21 04:25 Polychromasia Not Reportable 06/08/21 04:25 Hypochromasia Not Reportable 06/08/21 04:25 Poikilocytosis Not Reportable 06/08/21 04:25 Anisocytosis Not Reportable 06/08/21 04:25 Microcytosis Not Reportable 06/08/21 04:25 Macrocytosis Not Reportable 06/08/21 04:25 Spherocytes Not Reportable 06/08/21 04:25 Pappenheimer Bodies Not Reportable 06/08/21 04:25 Sickle Cells Not Reportable 06/08/21 04:25 Target Cells Not Reportable 06/08/21 04:25 Tear Drop Cells Not Reportable 06/08/21 04:25 Ovalocytes Not Reportable 06/08/21 04:25 Helmet Cells Not Reportable 06/08/21 04:25 [place] Bodies Not Reportable 06/08/21 04:25 [place] Rings Not Reportable 06/08/21 04:25 [place] Cells Not Reportable 06/08/21 04:25 Bite Cells Not Reportable 06/08/21 04:25 Crenated Cell Not Reportable 06/08/21 04:25 Elliptocytes Not Reportable 06/08/21 04:25 Acanthocytes (Spur) Not Reportable 06/08/21 04:25 Rouleaux Not Reportable 06/08/21 04:25 Hemoglobin C Crystals Not Reportable 06/08/21 04:25 Schistocytes Not Reportable 06/08/21 04:25 Malaria parasites Not Reportable 06/08/21 04:25 Shravan Bodies Not Reportable 06/08/21 04:25 Hem Pathologist Commnt No 06/08/21 04:25 PT 14.6 Sec. (12.2-14.9) 06/09/21 05:20 INR 1.09 (0.87-1.13) 06/09/21 05:20 APTT 25.4 Sec. (24.2-36.6) 06/13/21 10:44 D-Dimer > 25664 ng/mlDDU (0-234) H 05/25/21 09:21 Heparin Anti-Xa Level 0.50 U.I./ml (0.3-0.7) 06/15/21 05:08 ABG pH 7.471 (7.320-7.450) H 06/15/21 10:19 POC ABG pCO2 40.4 mmHg (32.0-48.0) 06/15/21 10:19 ABG pCO2 30.3 mm Hg 05/29/21 05:28 POC ABG pO2 90.1 mmHg (83-108) 06/15/21 10:19 ABG pO2 96.2 mm Hg (80.0-90.0) H 05/29/21 05:28 POC ABG HCO3 28.8 06/15/21 10:19 ABG HCO3 24.0 mmol/L (20.0-26.0) 05/29/21 05:28 ABG O2 Saturation 97.4 (0-100) 06/15/21 10:19 ABG O2 Content 10.3 (0.0-44) 05/29/21 05:28 POC ABG Base Excess 4.8 06/15/21 10:19 ABG Base Excess 1.2 mmol/L (-2.0-3.0) 05/29/21 05:28 ABG Hemoglobin 8.6 (12.0-17.5) L 06/13/21 11:07 ABG Oxyhemoglobin 96.0 (94-98) 06/15/21 10:19 ABG Carboxyhemoglobin 1.6 % (0.0-5.0) 05/29/21 05:28 ABG Methemoglobin 0.3 (0.0-1.5) 06/13/21 11:07 ABG Sodium 144.0 mmol/L (136.0-145.0) 06/13/21 11:07 ABG Potassium 4.7 mmol/L (3.40-4.50) H 06/13/21 11:07 ABG Chloride 107.0 mmol/L (98-107) 06/13/21 11:07 ABG Glucose 277 mg/dL (65-95) H 06/13/21 11:07 Oxyhemoglobin 96.0 % (95.0-99.0) 05/29/21 05:28 Carboxyhemoglobin 1.5 (0.5-1.5) 06/15/21 10:19 FiO2 30 % 05/29/21 05:28 FiO2 % 40 06/15/21 10:19 Sodium 147 mmol/L (137-145) H 06/15/21 05:08 Potassium 4.7 mmol/L (3.6-5.0) 06/15/21 05:08 Chloride 104.9 mmol/L (98-107) 06/15/21 05:08 Carbon Dioxide 27 mmol/L (22-30) 06/15/21 05:08 Anion Gap 20 mmol/L 06/15/21 05:08 BUN 60 mg/dL (7-17) H 06/15/21 05:08 Creatinine 1.6 mg/dL (0.6-1.2) H 06/15/21 05:08 Estimated GFR 39 ml/min 06/15/21 05:08 BUN/Creatinine Ratio 38 % 06/15/21 05:08 Glucose 158 mg/dL (65-100) H 06/15/21 05:08 POC Glucose 133 mg/dL (70-105) H 06/15/21 11:25 Lactic Acid 2.30 mmol/L (0.7-2.0) H* 05/26/21 05:49 Calcium 8.2 mg/dL (8.4-10.2) L 06/15/21 05:08 Phosphorus 5.90 mg/dL (2.5-4.5) H 06/15/21 05:08 Magnesium 3.20 mg/dL (1.7-2.3) H 06/15/21 05:08 Ferritin 321.6 ng/mL (10.0-200.0) H 05/25/21 09:21 Total Bilirubin 0.50 mg/dL (0.1-1.2) 06/13/21 04:34 Direct Bilirubin < 0.2 mg/dL (0-0.2) 05/25/21 09: Indirect Bilirubin 0.2 mg/dL 05/25/21 09: AST 69 units/L (5-40) H 06/13/21 04:34 ALT 74 units/L (7-56) H 06/13/21 04:34 Alkaline Phosphatase 197 units/L (35-129) H 06/13/21 04:34 Lactate Dehydrogenase 445 units/L (91-180) H 05/25/21 09:21 Troponin T 0.226 ng/mL (0.00-0.029) H* D 05/25/21 15:19 C-Reactive Protein 28.90 mg/dL (0.00-1.30) H 06/07/21 14:52 NT-Pro-B Natriuret Pep 173.2 pg/mL (0-900) 05/25/21 09: Total Protein 7.5 g/dL (6.3-8.2) 06/13/21 04:34 Albumin 3.0 g/dL (3.9-5) L 06/13/21 04:34 Albumin/Globulin Ratio 0.7 % 06/13/21 04:34 Triglycerides 124 mg/dL (2-149) 05/30/21 11:19 Cholesterol 198 mg/dL (50-199) 05/25/21 15:19 LDL Cholesterol Direct 80 mg/dL (50-130) 05/25/21 15:19 HDL Cholesterol 64 mg/dL (40-59) H 05/25/21 15:19 Cholesterol/HDL Ratio 3.09 % 05/25/21 15:19 Procalcitonin 0.36 ng/mL (<0.15) 06/07/21 14:52 Arterial Blood Glucose 277 mg/dL (65-95) H 06/13/21 11:07 Arterial Blood Ionized Calcium 4.6 mg/dL (4.6-5.3) 06/02/21 04:13 Urine Color Straw (Yellow) 05/25/21 10:42 Urine Turbidity Clear (Clear) 05/25/21 10:42 Urine pH 6.0 (5.0-7.0) 05/25/21 10:42 Ur Specific [place] 1.007 (1.003-1.030) 05/25/21 10:42 Urine Protein 100 mg/dl mg/dL (Negative) 05/25/21 10:42 Urine Glucose (UA) >=500 mg/dL (Negative) 05/25/21 10:42 Urine Ketones Neg mg/dL (Negative) 05/25/21 10:42 Urine Blood Mod (Negative) 05/25/21 10:42 Urine Nitrite Neg (Negative) 05/25/21 10:42 Ur Reducing Substances Not Reportable 06/15/21 Unknown Urine Bilirubin Neg (Negative) 06/15/21 Unknown Urine Ictotest Not Reportable 06/15/21 Unknown Urine Urobilinogen < 2.0 mg/dL (<2.0) 05/25/21 10:42 Ur Leukocyte Esterase Neg (Negative) 05/25/21 10:42 Urine WBC (Auto) 11.0 /HPF (0.0-6.0) H 05/25/21 10:42 Urine RBC (Auto) 3.0 /HPF (0.0-6.0) 06/15/21 Unknown U Epithel Cells (Auto) 2.0 /HPF (0-13.0) 06/15/21 Unknown Urine Bacteria (Auto) 4+ /HPF (Negative) 05/25/21 10:42 Urine Mucus Few /HPF 05/25/21 10:42 Urine Osmolality 430 Mosm/kg 06/15/21 Unknown Urine Creatinine 74.7 mg/dL (0.1-20.0) H 06/15/21 Unknown Urine Sodium 14 mmol/L 06/15/21 Unknown Coronavirus (PCR) Negative (Negative) 05/30/21 08:15 Blood Type O POSITIVE 06/15/21 08:00 Antibody Screen Negative 06/15/21 08:00 Microbiology: Microbiology 06/15/21 07:56 Peripheral/Venous Blood Culture - Preliminary Culture in Progress 06/15/21 07:56 Peripheral/Venous Blood Culture - Preliminary Culture in Progress Tan/IV: Voiding Method External Female Catheter Active Medications - Current Medications Current Medications: Generic Name Dose Route Start Last Admin Trade Name Freq PRN Reason Stop Dose Admin Acetaminophen 650 mg 05/25/21 13:48 05/28/21 04:14 Acetaminophen 325 Mg Tab PO 650 mg Q6H PRN Administration Pain MILD(1-3)/Fever >100.5/SOTOMAYOR Lipase/Protease/Amylase 1 each 05/26/21 10:00 Lipase 10,500/Protease 25,000/Amylase 43,750 (Units) Dr Cap FEEDTUBE PRN PRN For Clogged Feeding Tube Bisacodyl 10 mg 06/08/21 10:00 Bisacodyl 10 Mg Rect Supp DC QDAY PRN Constipation Dextrose 50 ml 05/28/21 14:28 Dextrose 50% In Water (25gm) 50 Ml Syringe IV Q30MIN PRN Hypoglycemia Protocol Docusate Sodium 100 mg 06/08/21 10:00 06/15/21 11:29 Docusate Sodium 100 Mg/10 Ml Oral Liqd PO 100 mg BID ABDIRAHMAN Administration Doxazosin Mesylate 2 mg 06/01/21 12:00 06/15/21 11:30 Doxazosin 1 Mg Tab PO 2 mg BID ABDIRAHMAN Administration Famotidine 20 mg 05/29/21 10:00 06/15/21 11:30 Famotidine 20 Mg Tab FEEDTUBE 20 mg BID ABDIRAHMAN Administration Heparin Sodium (Porcine) 2,700 unit 05/25/21 13:41 06/13/21 15:20 Heparin 10,000 Units/10 Ml Vial 40 unit/kg (2700 unit) 2,700 unit IV Administration Q6H PRN Anti-Xa Assay < 0.1 units/ml Hydralazine HCl 10 mg 06/01/21 11:43 06/07/21 17:23 Hydralazine 20 Mg/1 Ml Inj IV 10 mg Q4HR PRN Administration SBP >160 Hydralazine HCl 50 mg 06/03/21 22:00 06/15/21 14:17 Hydralazine 25 Mg Tab PO 50 mg Q8HR ABDIRAHMAN Administration Hydrophilic Ointment 1 applic 05/25/21 19:04 Lip Therapy Vaseline TP Q2HR PRN Dry Lips Heparin Sodium/Sodium Chloride 25,000 unit in 500 mls @ 20 mls/hr 05/25/21 15:00 06/15/21 14:16 Heparin/ 0.45% Nacl-25,000 Unit/500 Ml IV 1,050 units/hr TITRATE ABDIRAHMAN 21 mls/hr Administration Protocol 1,000 UNITS/HR Insulin Glargine 30 units 06/15/21 22:00 Insulin Glargine 100 Units/Ml SUB-Q QHS ABDIRAHMAN Insulin Human Lispro 0 unit 05/29/21 12:00 06/15/21 11:32 Insulin Lispro 100 Unit/Ml SUB-Q Not Given Q6HR [facility] Protocol Labetalol HCl 300 mg 06/03/21 13:40 06/15/21 11:25 Labetalol 100 Mg Tab PO 300 mg BID ABDIRAHMAN Administration Levetiracetam 250 mg 06/01/21 22:00 06/15/21 11:30 Levetiracetam 500 Mg/5 Ml Oral Liqd FEEDTUBE 250 mg Q12HR ABDIRAHMAN Administration Multi-Ingred Cream/Lotion/Oil/Oint 1 applic 05/25/21 19:04 Mineral Oil/Petrolatum, White Ophth Oint 3.5 Gm OU Q4HR PRN Dry Eye(s) Polyethylene Glycol 17 gm 06/05/21 11:00 06/15/21 11:29 Polyethylene Glycol 3350 17 Gm Powder PO 17 gm QDAY ABDIRAHMAN Administration Senna/Docusate Sodium 1 tab 05/25/21 22:00 06/15/21 11:29 Sennosides/Docusate Sodium 8.6/50 Mg Tab FEEDTUBE 1 tab BID ABDIRAHMAN Administration Simple Syrup 15 ml 05/26/21 10:00 Simple Syrup 15 Ml FEEDTUBE PRN PRN Hypoglycemia Simple Syrup 30 ml 05/26/21 10:00 Simple Syrup 15 Ml FEEDTUBE PRN PRN Hypoglycemia Sodium Bicarbonate 325 mg 05/26/21 10:00 Sodium Bicarbonate 325 Mg Tab FEEDTUBE PRN PRN For Clogged Feeding Tube Sodium Chloride 10 ml 05/25/21 22:00 06/15/21 11:32 Sodium Chloride 0.9% 10 Ml Flush Syringe IV 10 ml BID ABDIRAHMAN Administration Sodium Chloride 10 ml 05/25/21 13:48 06/04/21 03:57 Sodium Chloride 0.9% 10 Ml Flush Syringe IV 10 ml PRN PRN Administration LINE FLUSH Valsartan 160 mg 06/11/21 10:00 06/15/21 11:29 Valsartan 160mg Tab PO 160 mg BID ABDIRAHMAN Administration Nutrition/Malnutrition Assess - Dietary Evaluation Nutrition/Malnutrition Findings: Nutrition Notes Start: 05/26/21 0 9:00 Freq: Status: Active Protocol: Document 06/13/21 10:34 GB (Rec: 06/13/21 10:47 GB [id number]) Nutrition Notes Need for Assessment generated from: MD Order Initial or Follow up Reassessment Current Diagnosis COPD,Diabetes,Sepsis, Hypertension,Respiratory Failure Other Pertinent Diagnosis cardiac arrest, seizure disorder, (06/12: Trach/PEG) Labs/Tests 06/13: Na 149, K 5.1, BUN 52, creatinine 1.6, glucose 231, AST 69, ALT 74, AlkP 197 Pertinent Medications NaCl Height 5 ft 4 in Weight 63 kg [place] Body Weight (kg) 54.54 BMI 23.8 Weight change and time frame -6.6% since admission No new weights after 06/07 Weight Status Appropriate Subjective/Other Information 06/12: Trach/PEG 06/12: TF formula changed to glucerna 1.2 r/t altered labs and now with trach/peg Last BM 06/10 Percent of energy/protein needs met: TF goal rate meets 75% or greater of estimated energy needs Burn Absent Trauma Absent GI Symptoms None Difficulty In Swallowing Food Allergy No Current % PO Other Minimum of two criteria No #1 Nutrition Diagnosis Inadequate oral intake Comments: 06/02: On vent. TF continues. 06/07: Ventilation continues, TF continues. 06/13: Trach/PEG on 06/12, change formula to glucerna 1.2 Etiology ARF As Evidenced by Signs and Symptoms pt on vent and unable to consume PO Diagnosis Progress(for reassessment Continues documentation) Is patient on ventilator? Yes Is Patient Ambulatory and/or Out of Bed No REE-([facility]-confined to bed) 1385.676 Kcal/Kg value to use for calculation 23 Approximate Energy Requirements Using 1449 kcal/Kg Calculation Used for Recommendations Kcal/kg Additional Notes Protein: (1-1.5g/kg @63kg) 63- 95g Fluid: 1 ml/kcal or per MD Nutrition Intervention Change Diet Order: Continue NPO Nutrition Support: Vital AF 1.2 at 50 ml/hr Flush 75 ml q4h 06/07: continues 06/13: Trach/PEG on 06/12, change formula to glucerna 1.2 Kcal 1,440 Protein (gm) 72 Fat (gm) 72 Fluid (mL) 966 Goal #1 Meet 75% or greater of protein and energy needs via TF 06/13: TF at goal meets 100% estimated energy needs: met, continues Goal #2 Change TF formula. Complete current vital 1.2 bottle, change to glucerna 1.2 r/t DM and related lab results Follow-Up By: 06/19/21 Additional Comments f/u: formula change to glucerna 1.2, at goal 50ml/hr, weight, labs
--- NOTE | 2021-06-15 13:04 | Progress Note ---
Assessment and Plan Acute hypoxemic respiratory failure on MVS Cardiopulmonary arrest wtih ROSC Seizure disorder Sepsis Toxic metabolic encephalopathy, possible anoxia Atrial fibrillation with RVR Metabolic acidosis Bilateral lower lobe infiltrates - begin t-piece trials as tolerated - transition to oral anticoagulation per cardiology - continue care as below otherwise; - LTAC evaluation is appropriate - azotemia per nephrology team (non-oliguric) - daily SAT and SBT assessment as tolerated - continue to wean supplemental oxygen for target O2 sat's > 90% acutely - VAP bundle addressed - continue lung protective strategies - continue bronchodilators with pulmonary hygiene per RT - wean per pulmonary driven protocols otherwise - continue accuchecks with glycemic control per SSI (While critically ill target blood glucose of 140-180 mg/dL; avoid hypoglycemia) - sedation prn for target RASS 0 to -1 - avoid nephrotoxins, renally dose all medications - continue scopolamine for secretion control - continue Keppra as AED - continue to avoid benzodiazepine's, reduce the possibility of delirium - AB's per ID rec's - prn analgesia per CPOT score - Maintenance of sleep-wake cycle, avoid delirium - continue enteral nutritional support at goal rate as tolerated - G.I. & VTE prophylaxis - PT/OT/ROM exercises - continue mobility protocols for pressure ulcer prophylaxis - Monitor hemodynamics closely - continue other care per attending / other consultants - discharge planning ongoing concurrently COVID SPECIFIC INTERVENTIONS - COVID-19 PCR negative .... Re-evaluate in am & prn CONDITION: CRITICAL PROGNOSIS: GUARDED CODE STATUS: FULL CODE The high probability of a clinically significant, sudden or life-threatening deterioration of the [respiratory, cardiovascular, renal & neurologic] system(s) required my full and direct attention, intervention and personal management. The aggregate critical care time was [34] minutes without overlap. Time includes spent on; [x] Data Review and interpretation [x] Patient assessment and monitoring of vital signs [x] Documentation [x] Medication orders and management Subjective Date of service: 06/15/21 Principal diagnosis: Ac hypoxemic resp failure; Cardiac arrest; Seizures; Sepsis; AMS; A-Fib RVR Interval history: Patient is seen today for: Acute hypoxemic respiratory failure; Cardiac arrest wtih ROSC; Seizure disorder; Sepsis; AMS; A-Fib with RVR Seen and examined at bedside; 24hour events reviewed; nursing and respiratory care staff consulted; no adverse overnight events reported to me; resting in bed; remains on MVS; on SDT via PSV at time of my exam; AMS is persistent; rested overnight on full MVS Objective Vital Signs - 12hr 06/15/21 06/15/21 06/15/21 01:30 02:00 02:30 Temperature Pulse Rate 81 86 77 Pulse Rate [ From Monitor] Respiratory 16 22 15 Rate Blood Pressure 145/62 158/65 132/58 O2 Sat by Pulse 99 100 100 Oximetry O2 Sat by Pulse Oximetry [ Assessment] 06/15/21 06/15/21 06/15/21 03:01 03:30 03:52 Temperature 101.0 F H Pulse Rate 89 82 Pulse Rate [ From Monitor] Respiratory 16 14 Rate Blood Pressure 166/74 153/70 O2 Sat by Pulse 99 98 Oximetry O2 Sat by Pulse Oximetry [ Assessment] 06/15/21 06/15/21 06/15/21 04:00 04:30 05:00 Temperature Pulse Rate 85 80 83 Pulse Rate [ 95 H From Monitor] Respiratory 14 14 11 L Rate Blood Pressure 157/72 136/60 158/69 O2 Sat by Pulse 98 98 97 Oximetry O2 Sat by Pulse Oximetry [ Assessment] 06/15/21 06/15/21 06/15/21 05:30 06:00 06:30 Temperature Pulse Rate 87 90 Pulse Rate [ From Monitor] Respiratory 13 14 Rate Blood Pressure 147/74 146/63 154/65 O2 Sat by Pulse 97 97 97 Oximetry O2 Sat by Pulse Oximetry [ Assessment] 06/15/21 06/15/21 06/15/21 07:00 07:09 07:30 Temperature Pulse Rate 97 H 84 Pulse Rate [ From Monitor] Respiratory 18 25 H Rate Blood Pressure 150/70 150/70 156/65 O2 Sat by Pulse 97 97 97 Oximetry O2 Sat by Pulse Oximetry [ Assessment] 06/15/21 06/15/21 06/15/21 07:38 07:54 08:00 Temperature 98.7 F Pulse Rate 90 93 H Pulse Rate [ 85 From Monitor] Respiratory 23 Rate Blood Pressure 156/65 O2 Sat by Pulse 100 Oximetry O2 Sat by Pulse 100 Oximetry [ Assessment] 06/15/21 06/15/21 06/15/21 08:01 08:31 09:01 Temperature Pulse Rate 105 H 84 80 Pulse Rate [ From Monitor] Respiratory 21 27 H 20 Rate Blood Pressure 156/65 156/65 156/65 O2 Sat by Pulse 100 98 98 Oximetry O2 Sat by Pulse Oximetry [ Assessment] 06/15/21 06/15/21 06/15/21 09:30 10:01 10:30 Temperature Pulse Rate 91 H 77 81 Pulse Rate [ From Monitor] Respiratory 22 21 22 Rate Blood Pressure 154/65 119/43 144/57 O2 Sat by Pulse 100 100 100 Oximetry O2 Sat by Pulse Oximetry [ Assessment] 06/15/21 06/15/21 06/15/21 11:00 11:25 11:26 Temperature Pulse Rate 78 78 77 Pulse Rate [ From Monitor] Respiratory 23 Rate Blood Pressure 141/47 141/47 141/47 O2 Sat by Pulse 100 Oximetry O2 Sat by Pulse Oximetry [ Assessment] 06/15/21 06/15/21 06/15/21 11:29 11:30 12:00 Temperature Pulse Rate 77 76 74 Pulse Rate [ 75 From Monitor] Respiratory 20 25 H Rate Blood Pressure 141/47 125/45 135/53 O2 Sat by Pulse 100 100 Oximetry O2 Sat by Pulse Oximetry [ Assessment] Constitutional: no acute distress, other (elderly female with mildly increased respiratory effort at rest on MVS) Eyes: non-icteric ENT: oropharynx moist, other (+ midline tracheostomy with mild secretions) Neck: supple, no lymphadenopathy Effort: mildly labored Ascultation: Bilateral: diminished breath sounds, rhonchi (scant) Percussion: Bilateral: not dull Cardiovascular: regular rate and rhythm, other (S1,S2) Gastrointestinal: normoactive bowel sounds, soft, non-tender, non-distended (protuberant), other (+ PEG tube) Integumentary: normal Extremities: no cyanosis, pulses normal, no ischemia or petechiae, other (Right femoral CVL) Neurologic: pupils equal and round, unable to assess, other (encephalopathic) Psychiatric: other (unable to assess) CBC and BMP: 06/16/21 04:31 06/16/21 04:31 ABG, PT/INR, D-dimer: ABG ABG pH 7.471 (7.320-7.450) H 06/15/21 10:19 POC ABG pCO2 40.4 mmHg (32.0-48.0) 06/15/21 10:19 ABG pCO2 30.3 mm Hg 05/29/21 05:28 POC ABG pO2 90.1 mmHg (83-108) 06/15/21 10:19 ABG pO2 96.2 mm Hg (80.0-90.0) H 05/29/21 05:28 POC ABG HCO3 28.8 06/15/21 10:19 ABG O2 Saturation 97.4 (0-100) 06/15/21 10:19 PT/INR, D-dimer PT 14.6 Sec. (12.2-14.9) 06/09/21 05:20 INR 1.09 (0.87-1.13) 06/09/21 05:20 D-Dimer > 53230 ng/mlDDU (0-234) H 05/25/21 09:21 Abnormal lab findings: Abnormal Labs 05/25/21 05/25/21 05/25/21 09:07 09:21 09:21 WBC 17.1 H RBC Hgb Hct MCV 106 H MCH 33 H MCHC RDW 15.6 H [place] # (Auto) Seg Neutrophils % Seg Neuts % (Manual) Lymphocytes % (Manual) Monocytes % (Manual) Seg Neutrophils # Seg Neutrophils # Man 10.1 H Lymphocytes # (Manual) 5.6 H Monocytes # (Manual) PT 15.0 H APTT 44.3 H D-Dimer > 40491 H Heparin Anti-Xa Level ABG pH 7.116 L POC ABG pCO2 POC ABG pO2 ABG pO2 ABG Hemoglobin ABG Oxyhemoglobin 93.7 L ABG Sodium ABG Potassium ABG Chloride ABG Glucose 395 H Carboxyhemoglobin Sodium Potassium Chloride Carbon Dioxide BUN Creatinine Glucose POC Glucose Lactic Acid Calcium Phosphorus Magnesium Ferritin AST ALT Alkaline Phosphatase Lactate Dehydrogenase Troponin T C-Reactive Protein Total Protein Albumin HDL Cholesterol Arterial Blood Glucose 395 H Arterial Blood Ionized Calcium 4.4 L Urine WBC (Auto) 05/25/21 05/25/21 05/25/21 09:21 09:21 09:21 WBC RBC Hgb Hct MCV MCH MCHC RDW [place] # (Auto) Seg Neutrophils % Seg Neuts % (Manual) Lymphocytes % (Manual) Monocytes % (Manual) Seg Neutrophils # Seg Neutrophils # Man Lymphocytes # (Manual) Monocytes # (Manual) PT APTT D-Dimer Heparin Anti-Xa Level ABG pH POC ABG pCO2 POC ABG pO2 ABG pO2 ABG Hemoglobin ABG Oxyhemoglobin ABG Sodium ABG Potassium ABG Chloride ABG Glucose Carboxyhemoglobin Sodium Potassium Chloride Carbon Dioxide 10 L BUN Creatinine Glucose 423 H 424 H POC Glucose Lactic Acid Calcium 8.2 L Phosphorus Magnesium Ferritin 321.6 H AST 162 H ALT 119 H Alkaline Phosphatase Lactate Dehydrogenase 445 H Troponin T C-Reactive Protein Total Protein 5.6 L Albumin 3.2 L HDL Cholesterol Arterial Blood Glucose Arterial Blood Ionized Calcium Urine WBC (Auto) 05/25/21 05/25/21 05/25/21 09:35 10:42 11:12 WBC RBC Hgb Hct MCV MCH MCHC RDW [place] # (Auto) Seg Neutrophils % Seg Neuts % (Manual) Lymphocytes % (Manual) Monocytes % (Manual) Seg Neutrophils # Seg Neutrophils # Man Lymphocytes # (Manual) Monocytes # (Manual) PT APTT D-Dimer Heparin Anti-Xa Level ABG pH POC ABG pCO2 POC ABG pO2 ABG pO2 ABG Hemoglobin ABG Oxyhemoglobin ABG Sodium ABG Potassium ABG Chloride ABG Glucose Carboxyhemoglobin Sodium Potassium Chloride Carbon Dioxide BUN Creatinine Glucose POC Glucose Lactic Acid 16.70 H* 7.70 H* Calcium Phosphorus Magnesium Ferritin AST ALT Alkaline Phosphatase Lactate Dehydrogenase Troponin T C-Reactive Protein Total Protein Albumin HDL Cholesterol Arterial Blood Glucose Arterial Blood Ionized Calcium Urine WBC (Auto) 11.0 H 05/25/21 05/25/21 05/25/21 14:07 15:19 19:04 WBC RBC Hgb Hct MCV MCH MCHC RDW [place] # (Auto) Seg Neutrophils % Seg Neuts % (Manual) Lymphocytes % (Manual) Monocytes % (Manual) Seg Neutrophils # Seg Neutrophils # Man Lymphocytes # (Manual) Monocytes # (Manual) PT APTT D-Dimer Heparin Anti-Xa Level ABG pH POC ABG pCO2 POC ABG pO2 172.2 H ABG pO2 ABG Hemoglobin ABG Oxyhemoglobin 98.7 H ABG Sodium 135.7 L ABG Potassium ABG Chloride ABG Glucose 255 H Carboxyhemoglobin 0.3 L Sodium Potassium Chloride Carbon Dioxide BUN Creatinine Glucose POC Glucose Lactic Acid 3.90 H* Calcium Phosphorus Magnesium Ferritin AST ALT Alkaline Phosphatase Lactate Dehydrogenase Troponin T 0.226 H* D C-Reactive Protein Total Protein Albumin HDL Cholesterol 64 H Arterial Blood Glucose 255 H Arterial Blood Ionized Calcium 3.8 L Urine WBC (Auto) 05/25/21 05/25/21 05/26/21 21:16 21:16 04:00 WBC RBC Hgb Hct MCV MCH MCHC RDW [place] # (Auto) Seg Neutrophils % Seg Neuts % (Manual) Lymphocytes % (Manual) Monocytes % (Manual) Seg Neutrophils # Seg Neutrophils # Man Lymphocytes # (Manual) Monocytes # (Manual) PT APTT D-Dimer Heparin Anti-Xa Level 1.19 H ABG pH 7.547 H POC ABG pCO2 POC ABG pO2 ABG pO2 ABG Hemoglobin 11.9 L ABG Oxyhemoglobin ABG Sodium 133.2 L ABG Potassium 3.1 L ABG Chloride ABG Glucose 243 H Carboxyhemoglobin 0.3 L Sodium Potassium Chloride Carbon Dioxide BUN Creatinine Glucose POC Glucose Lactic Acid 2.50 H* Calcium Phosphorus Magnesium Ferritin AST ALT Alkaline Phosphatase Lactate Dehydrogenase Troponin T C-Reactive Protein Total Protein Albumin HDL Cholesterol Arterial Blood Glucose 243 H Arterial Blood Ionized Calcium Urine WBC (Auto) 05/26/21 05/26/21 05/26/21 05:49 05:49 17:33 WBC RBC Hgb Hct MCV MCH MCHC RDW [place] # (Auto) Seg Neutrophils % Seg Neuts % (Manual) Lymphocytes % (Manual) Monocytes % (Manual) Seg Neutrophils # Seg Neutrophils # Man Lymphocytes # (Manual) Monocytes # (Manual) PT APTT D-Dimer Heparin Anti-Xa Level ABG pH POC ABG pCO2 POC ABG pO2 ABG pO2 ABG Hemoglobin ABG Oxyhemoglobin ABG Sodium ABG Potassium ABG Chloride ABG Glucose Carboxyhemoglobin Sodium Potassium Chloride Carbon Dioxide BUN Creatinine Glucose 226 H POC Glucose 156 H Lactic Acid 2.30 H* Calcium 7.2 L Phosphorus Magnesium Ferritin AST 111 H ALT 97 H Alkaline Phosphatase Lactate Dehydrogenase Troponin T C-Reactive Protein Total Protein 5.4 L Albumin 3.3 L HDL Cholesterol Arterial Blood Glucose Arterial Blood Ionized Calcium Urine WBC (Auto) 05/27/21 05/27/21 05/27/21 02:11 02:11 02:11 WBC 14.3 H RBC 3.27 L Hgb Hct MCV 99 H MCH 33 H MCHC RDW 15.3 H [place] # (Auto) 1.0 H Seg Neutrophils % Seg Neuts % (Manual) Lymphocytes % (Manual) Monocytes % (Manual) Seg Neutrophils # 10.0 H Seg Neutrophils # Man Lymphocytes # (Manual) Monocytes # (Manual) PT APTT D-Dimer Heparin Anti-Xa Level 0.80 H ABG pH POC ABG pCO2 POC ABG pO2 ABG pO2 ABG Hemoglobin ABG Oxyhemoglobin ABG Sodium ABG Potassium ABG Chloride ABG Glucose Carboxyhemoglobin Sodium Potassium 2.9 L* D Chloride Carbon Dioxide 31 H BUN 6 L Creatinine Glucose 215 H POC Glucose Lactic Acid Calcium 8.1 L Phosphorus Magnesium Ferritin AST ALT Alkaline Phosphatase Lactate Dehydrogenase Troponin T C-Reactive Protein Total Protein Albumin HDL Cholesterol Arterial Blood Glucose Arterial Blood Ionized Calcium Urine WBC (Auto) 05/27/21 05/27/21 05/27/21 11:24 12:49 18:06 WBC RBC Hgb Hct MCV MCH MCHC RDW [place] # (Auto) Seg Neutrophils % Seg Neuts % (Manual) Lymphocytes % (Manual) Monocytes % (Manual) Seg Neutrophils # Seg Neutrophils # Man Lymphocytes # (Manual) Monocytes # (Manual) PT APTT D-Dimer Heparin Anti-Xa Level ABG pH POC ABG pCO2 POC ABG pO2 ABG pO2 ABG Hemoglobin ABG Oxyhemoglobin ABG Sodium ABG Potassium ABG Chloride ABG Glucose Carboxyhemoglobin Sodium Potassium Chloride Carbon Dioxide BUN Creatinine Glucose POC Glucose 151 H 165 H 137 H Lactic Acid Calcium Phosphorus Magnesium Ferritin AST ALT Alkaline Phosphatase Lactate Dehydrogenase Troponin T C-Reactive Protein Total Protein Albumin HDL Cholesterol Arterial Blood Glucose Arterial Blood Ionized Calcium Urine WBC (Auto) 05/28/21 05/28/21 05/28/21 04:00 04:00 06:02 WBC 13.5 H RBC 3.05 L Hgb Hct MCV 100 H MCH 34 H MCHC RDW [place] # (Auto) 0.9 H Seg Neutrophils % 78.2 H Seg Neuts % (Manual) Lymphocytes % (Manual) Monocytes % (Manual) Seg Neutrophils # 10.6 H Seg Neutrophils # Man Lymphocytes # (Manual) Monocytes # (Manual) PT APTT D-Dimer Heparin Anti-Xa Level ABG pH 7.507 H POC ABG pCO2 POC ABG pO2 ABG pO2 ABG Hemoglobin 10.6 L ABG Oxyhemoglobin ABG Sodium 129.4 L ABG Potassium ABG Chloride ABG Glucose 243 H Carboxyhemoglobin 0.2 L Sodium 136 L D Potassium Chloride Carbon Dioxide BUN Creatinine Glucose 215 H POC Glucose Lactic Acid Calcium Phosphorus Magnesium Ferritin AST ALT Alkaline Phosphatase Lactate Dehydrogenase Troponin T C-Reactive Protein Total Protein Albumin HDL Cholesterol Arterial Blood Glucose 243 H Arterial Blood Ionized Calcium 4.1 L Urine WBC (Auto) 05/28/21 05/28/21 05/29/21 11:27 23:02 04:30 WBC RBC Hgb 9.3 L Hct 26.7 L MCV MCH MCHC RDW [place] # (Auto) Seg Neutrophils % Seg Neuts % (Manual) Lymphocytes % (Manual) Monocytes % (Manual) Seg Neutrophils # Seg Neutrophils # Man Lymphocytes # (Manual) Monocytes # (Manual) PT APTT D-Dimer Heparin Anti-Xa Level ABG pH POC ABG pCO2 POC ABG pO2 ABG pO2 ABG Hemoglobin ABG Oxyhemoglobin ABG Sodium ABG Potassium ABG Chloride ABG Glucose Carboxyhemoglobin Sodium Potassium Chloride Carbon Dioxide BUN Creatinine Glucose POC Glucose 220 H 212 H Lactic Acid Calcium Phosphorus Magnesium Ferritin AST ALT Alkaline Phosphatase Lactate Dehydrogenase Troponin T C-Reactive Protein Total Protein Albumin HDL Cholesterol Arterial Blood Glucose Arterial Blood Ionized Calcium Urine WBC (Auto) 05/29/21 05/29/21 05/29/21 05:02 05:28 12:55 WBC RBC Hgb Hct MCV MCH MCHC RDW [place] # (Auto) Seg Neutrophils % Seg Neuts % (Manual) Lymphocytes % (Manual) Monocytes % (Manual) Seg Neutrophils # Seg Neutrophils # Man Lymphocytes # (Manual) Monocytes # (Manual) PT APTT D-Dimer Heparin Anti-Xa Level ABG pH 7.516 H POC ABG pCO2 POC ABG pO2 ABG pO2 96.2 H ABG Hemoglobin 7.5 L ABG Oxyhemoglobin ABG Sodium ABG Potassium ABG Chloride ABG Glucose Carboxyhemoglobin Sodium Potassium Chloride Carbon Dioxide BUN Creatinine Glucose POC Glucose 197 H 251 H Lactic Acid Calcium Phosphorus Magnesium Ferritin AST ALT Alkaline Phosphatase Lactate Dehydrogenase Troponin T C-Reactive Protein Total Protein Albumin HDL Cholesterol Arterial Blood Glucose Arterial Blood Ionized Calcium Urine WBC (Auto) 05/29/21 05/29/21 05/30/21 18:23 23:31 04:10 WBC RBC Hgb Hct MCV MCH MCHC RDW [place] # (Auto) Seg Neutrophils % Seg Neuts % (Manual) Lymphocytes % (Manual) Monocytes % (Manual) Seg Neutrophils # Seg Neutrophils # Man Lymphocytes # (Manual) Monocytes # (Manual) PT APTT D-Dimer Heparin Anti-Xa Level ABG pH 7.532 H POC ABG pCO2 30.0 L POC ABG pO2 78.5 L ABG pO2 ABG Hemoglobin 11.3 L ABG Oxyhemoglobin ABG Sodium 126.7 L ABG Potassium ABG Chloride 94.0 L ABG Glucose 270 H Carboxyhemoglobin 0.4 L Sodium Potassium Chloride Carbon Dioxide BUN Creatinine Glucose POC Glucose 236 H 252 H Lactic Acid Calcium Phosphorus Magnesium Ferritin AST ALT Alkaline Phosphatase Lactate Dehydrogenase Troponin T C-Reactive Protein Total Protein Albumin HDL Cholesterol Arterial Blood Glucose 270 H Arterial Blood Ionized Calcium 4.4 L Urine WBC (Auto) 05/30/21 05/30/21 05/30/21 05:06 06:23 11:15 WBC RBC Hgb Hct MCV MCH MCHC RDW [place] # (Auto) Seg Neutrophils % Seg Neuts % (Manual) Lymphocytes % (Manual) Monocytes % (Manual) Seg Neutrophils # Seg Neutrophils # Man Lymphocytes # (Manual) Monocytes # (Manual) PT APTT D-Dimer Heparin Anti-Xa Level ABG pH POC ABG pCO2 POC ABG pO2 ABG pO2 ABG Hemoglobin ABG Oxyhemoglobin ABG Sodium ABG Potassium ABG Chloride ABG Glucose Carboxyhemoglobin Sodium 126 L D Potassium Chloride 91.9 L Carbon Dioxide 20 L D BUN Creatinine 0.4 L Glucose 274 H POC Glucose 242 H 346 H Lactic Acid Calcium Phosphorus Magnesium Ferritin AST ALT Alkaline Phosphatase Lactate Dehydrogenase Troponin T C-Reactive Protein Total Protein Albumin HDL Cholesterol Arterial Blood Glucose Arterial Blood Ionized Calcium Urine WBC (Auto) 05/30/21 05/30/21 05/30/21 11:19 11:19 11:19 WBC 18.9 H RBC 3.36 L Hgb Hct MCV 102 H MCH 33 H MCHC RDW 15.5 H [place] # (Auto) Seg Neutrophils % Seg Neuts % (Manual) Lymphocytes % (Manual) Monocytes % (Manual) Seg Neutrophils # Seg Neutrophils # Man Lymphocytes # (Manual) Monocytes # (Manual) PT APTT D-Dimer Heparin Anti-Xa Level < 0.10 L ABG pH POC ABG pCO2 POC ABG pO2 ABG pO2 ABG Hemoglobin ABG Oxyhemoglobin ABG Sodium ABG Potassium ABG Chloride ABG Glucose Carboxyhemoglobin Sodium 124 L Potassium Chloride Carbon Dioxide BUN Creatinine Glucose POC Glucose Lactic Acid Calcium Phosphorus Magnesium Ferritin AST ALT Alkaline Phosphatase Lactate Dehydrogenase Troponin T C-Reactive Protein Total Protein Albumin HDL Cholesterol Arterial Blood Glucose Arterial Blood Ionized Calcium Urine WBC (Auto) 05/30/21 05/30/21 05/31/21 17:02 23:27 03:37 WBC RBC Hgb Hct MCV MCH MCHC RDW [place] # (Auto) Seg Neutrophils % Seg Neuts % (Manual) Lymphocytes % (Manual) Monocytes % (Manual) Seg Neutrophils # Seg Neutrophils # Man Lymphocytes # (Manual) Monocytes # (Manual) PT APTT D-Dimer Heparin Anti-Xa Level ABG pH POC ABG pCO2 POC ABG pO2 ABG pO2 ABG Hemoglobin 11.6 L ABG Oxyhemoglobin ABG Sodium 130.0 L ABG Potassium ABG Chloride 95.0 L ABG Glucose 292 H Carboxyhemoglobin Sodium Potassium Chloride Carbon Dioxide BUN Creatinine Glucose POC Glucose 270 H 237 H Lactic Acid Calcium Phosphorus Magnesium Ferritin AST ALT Alkaline Phosphatase Lactate Dehydrogenase Troponin T C-Reactive Protein Total Protein Albumin HDL Cholesterol Arterial Blood Glucose 292 H Arterial Blood Ionized Calcium Urine WBC (Auto) 05/31/21 05/31/21 05/31/21 04:00 04:00 05:20 WBC 20.9 H RBC 3.13 L Hgb Hct MCV 99 H MCH 34 H MCHC RDW [place] # (Auto) Seg Neutrophils % Seg Neuts % (Manual) 81.0 H Lymphocytes % (Manual) 8.0 L Monocytes % (Manual) 9.0 H Seg Neutrophils # Seg Neutrophils # Man 16.9 H Lymphocytes # (Manual) Monocytes # (Manual) 1.9 H PT APTT D-Dimer Heparin Anti-Xa Level ABG pH POC ABG pCO2 POC ABG pO2 ABG pO2 ABG Hemoglobin ABG Oxyhemoglobin ABG Sodium ABG Potassium ABG Chloride ABG Glucose Carboxyhemoglobin Sodium 133 L D Potassium Chloride 95.4 L Carbon Dioxide 21 L BUN 30 H Creatinine 0.5 L Glucose 305 H POC Glucose 269 H Lactic Acid Calcium Phosphorus Magnesium Ferritin AST ALT Alkaline Phosphatase Lactate Dehydrogenase Troponin T C-Reactive Protein Total Protein Albumin HDL Cholesterol Arterial Blood Glucose Arterial Blood Ionized Calcium Urine WBC (Auto) 05/31/21 05/31/21 05/31/21 11:40 18:16 23:25 WBC RBC Hgb Hct MCV MCH MCHC RDW [place] # (Auto) Seg Neutrophils % Seg Neuts % (Manual) Lymphocytes % (Manual) Monocytes % (Manual) Seg Neutrophils # Seg Neutrophils # Man Lymphocytes # (Manual) Monocytes # (Manual) PT APTT D-Dimer Heparin Anti-Xa Level ABG pH POC ABG pCO2 POC ABG pO2 ABG pO2 ABG Hemoglobin ABG Oxyhemoglobin ABG Sodium ABG Potassium ABG Chloride ABG Glucose Carboxyhemoglobin Sodium Potassium Chloride Carbon Dioxide BUN Creatinine Glucose POC Glucose 364 H 250 H 231 H Lactic Acid Calcium Phosphorus Magnesium Ferritin AST ALT Alkaline Phosphatase Lactate Dehydrogenase Troponin T C-Reactive Protein Total Protein Albumin HDL Cholesterol Arterial Blood Glucose Arterial Blood Ionized Calcium Urine WBC (Auto) 06/01/21 06/01/21 06/01/21 04:03 04:58 04:58 WBC 20.7 H RBC 3.20 L Hgb Hct MCV 99 H MCH 34 H MCHC RDW [place] # (Auto) Seg Neutrophils % Seg Neuts % (Manual) 82.0 H Lymphocytes % (Manual) 9.0 L Monocytes % (Manual) Seg Neutrophils # Seg Neutrophils # Man 17.0 H Lymphocytes # (Manual) Monocytes # (Manual) 1.4 H PT APTT D-Dimer Heparin Anti-Xa Level 1.18 H ABG pH 7.520 H POC ABG pCO2 POC ABG pO2 66.0 L ABG pO2 ABG Hemoglobin ABG Oxyhemoglobin 92.5 L ABG Sodium 133.6 L ABG Potassium ABG Chloride ABG Glucose 250 H Carboxyhemoglobin Sodium Potassium Chloride Carbon Dioxide BUN Creatinine Glucose POC Glucose Lactic Acid Calcium Phosphorus Magnesium Ferritin AST ALT Alkaline Phosphatase Lactate Dehydrogenase Troponin T C-Reactive Protein Total Protein Albumin HDL Cholesterol Arterial Blood Glucose 250 H Arterial Blood Ionized Calcium 4.4 L Urine WBC (Auto) 06/01/21 06/01/21 06/01/21 04:58 05:29 11:39 WBC RBC Hgb Hct MCV MCH MCHC RDW [place] # (Auto) Seg Neutrophils % Seg Neuts % (Manual) Lymphocytes % (Manual) Monocytes % (Manual) Seg Neutrophils # Seg Neutrophils # Man Lymphocytes # (Manual) Monocytes # (Manual) PT APTT D-Dimer Heparin Anti-Xa Level ABG pH POC ABG pCO2 POC ABG pO2 ABG pO2 ABG Hemoglobin ABG Oxyhemoglobin ABG Sodium ABG Potassium ABG Chloride ABG Glucose Carboxyhemoglobin Sodium 131 L Potassium Chloride 95.7 L Carbon Dioxide BUN 30 H Creatinine 0.5 L Glucose 241 H POC Glucose 215 H 299 H Lactic Acid Calcium Phosphorus Magnesium Ferritin AST ALT Alkaline Phosphatase Lactate Dehydrogenase Troponin T C-Reactive Protein Total Protein Albumin HDL Cholesterol Arterial Blood Glucose Arterial Blood Ionized Calcium Urine WBC (Auto) 06/01/21 06/02/21 06/02/21 18:14 00:12 02:25 WBC 17.4 H RBC 3.09 L Hgb Hct MCV 101 H MCH 34 H MCHC RDW 15.5 H [place] # (Auto) Seg Neutrophils % Seg Neuts % (Manual) Lymphocytes % (Manual) Monocytes % (Manual) Seg Neutrophils # Seg Neutrophils # Man Lymphocytes # (Manual) Monocytes # (Manual) PT APTT D-Dimer Heparin Anti-Xa Level ABG pH POC ABG pCO2 POC ABG pO2 ABG pO2 ABG Hemoglobin ABG Oxyhemoglobin ABG Sodium ABG Potassium ABG Chloride ABG Glucose Carboxyhemoglobin Sodium Potassium Chloride Carbon Dioxide BUN Creatinine Glucose POC Glucose 215 H 175 H Lactic Acid Calcium Phosphorus Magnesium Ferritin AST ALT Alkaline Phosphatase Lactate Dehydrogenase Troponin T C-Reactive Protein Total Protein Albumin HDL Cholesterol Arterial Blood Glucose Arterial Blood Ionized Calcium Urine WBC (Auto) 06/02/21 06/02/21 06/02/21 02:25 04:13 04:58 WBC RBC Hgb Hct MCV MCH MCHC RDW [place] # (Auto) Seg Neutrophils % Seg Neuts % (Manual) Lymphocytes % (Manual) Monocytes % (Manual) Seg Neutrophils # Seg Neutrophils # Man Lymphocytes # (Manual) Monocytes # (Manual) PT APTT D-Dimer Heparin Anti-Xa Level ABG pH 7.481 H POC ABG pCO2 POC ABG pO2 80.0 L ABG pO2 ABG Hemoglobin 11.1 L ABG Oxyhemoglobin ABG Sodium 131.9 L ABG Potassium ABG Chloride ABG Glucose 231 H Carboxyhemoglobin 0.2 L Sodium 134 L Potassium Chloride 95.8 L Carbon Dioxide BUN 31 H Creatinine 0.5 L Glucose 168 H POC Glucose 230 H Lactic Acid Calcium Phosphorus Magnesium Ferritin AST ALT Alkaline Phosphatase Lactate Dehydrogenase Troponin T C-Reactive Protein Total Protein Albumin HDL Cholesterol Arterial Blood Glucose 231 H Arterial Blood Ionized Calcium Urine WBC (Auto) 06/02/21 06/02/21 06/02/21 11:27 17:47 23:53 WBC RBC Hgb Hct MCV MCH MCHC RDW [place] # (Auto) Seg Neutrophils % Seg Neuts % (Manual) Lymphocytes % (Manual) Monocytes % (Manual) Seg Neutrophils # Seg Neutrophils # Man Lymphocytes # (Manual) Monocytes # (Manual) PT APTT D-Dimer Heparin Anti-Xa Level 0.80 H ABG pH POC ABG pCO2 POC ABG pO2 ABG pO2 ABG Hemoglobin ABG Oxyhemoglobin ABG Sodium ABG Potassium ABG Chloride ABG Glucose Carboxyhemoglobin Sodium Potassium Chloride Carbon Dioxide BUN Creatinine Glucose POC Glucose 259 H 297 H Lactic Acid Calcium Phosphorus Magnesium Ferritin AST ALT Alkaline Phosphatase Lactate Dehydrogenase Troponin T C-Reactive Protein Total Protein Albumin HDL Cholesterol Arterial Blood Glucose Arterial Blood Ionized Calcium Urine WBC (Auto) 06/03/21 06/03/21 06/03/21 00:05 05:23 09:10 WBC RBC Hgb Hct MCV MCH MCHC RDW [place] # (Auto) Seg Neutrophils % Seg Neuts % (Manual) Lymphocytes % (Manual) Monocytes % (Manual) Seg Neutrophils # Seg Neutrophils # Man Lymphocytes # (Manual) Monocytes # (Manual) PT APTT D-Dimer Heparin Anti-Xa Level 0.84 H ABG pH POC ABG pCO2 POC ABG pO2 ABG pO2 ABG Hemoglobin ABG Oxyhemoglobin ABG Sodium ABG Potassium ABG Chloride ABG Glucose Carboxyhemoglobin Sodium Potassium Chloride Carbon Dioxide BUN Creatinine Glucose POC Glucose 268 H 170 H Lactic Acid Calcium Phosphorus Magnesium Ferritin AST ALT Alkaline Phosphatase Lactate Dehydrogenase Troponin T C-Reactive Protein Total Protein Albumin HDL Cholesterol Arterial Blood Glucose Arterial Blood Ionized Calcium Urine WBC (Auto) 06/03/21 06/03/21 06/03/21 12:06 20:22 23:30 WBC RBC Hgb Hct MCV MCH MCHC RDW [place] # (Auto) Seg Neutrophils % Seg Neuts % (Manual) Lymphocytes % (Manual) Monocytes % (Manual) Seg Neutrophils # Seg Neutrophils # Man Lymphocytes # (Manual) Monocytes # (Manual) PT APTT D-Dimer Heparin Anti-Xa Level ABG pH POC ABG pCO2 POC ABG pO2 ABG pO2 ABG Hemoglobin ABG Oxyhemoglobin ABG Sodium ABG Potassium ABG Chloride ABG Glucose Carboxyhemoglobin Sodium Potassium Chloride Carbon Dioxide BUN Creatinine Glucose POC Glucose 275 H 260 H 215 H Lactic Acid Calcium Phosphorus Magnesium Ferritin AST ALT Alkaline Phosphatase Lactate Dehydrogenase Troponin T C-Reactive Protein Total Protein Albumin HDL Cholesterol Arterial Blood Glucose Arterial Blood Ionized Calcium Urine WBC (Auto) 06/04/21 06/04/21 06/04/21 05:03 05:57 05:57 WBC 17.8 H RBC 2.83 L Hgb 9.6 L Hct 28.4 L MCV 100 H MCH 34 H MCHC RDW 15.5 H [place] # (Auto) Seg Neutrophils % Seg Neuts % (Manual) 83.0 H Lymphocytes % (Manual) 4.0 L Monocytes % (Manual) Seg Neutrophils # Seg Neutrophils # Man 14.8 H Lymphocytes # (Manual) 0.7 L Monocytes # (Manual) 1.1 H PT APTT D-Dimer Heparin Anti-Xa Level ABG pH POC ABG pCO2 POC ABG pO2 ABG pO2 ABG Hemoglobin ABG Oxyhemoglobin ABG Sodium ABG Potassium ABG Chloride ABG Glucose Carboxyhemoglobin Sodium 135 L Potassium Chloride 96.3 L Carbon Dioxide BUN 51 H Creatinine Glucose 275 H POC Glucose 257 H Lactic Acid Calcium Phosphorus Magnesium Ferritin AST ALT Alkaline Phosphatase Lactate Dehydrogenase Troponin T C-Reactive Protein Total Protein Albumin HDL Cholesterol Arterial Blood Glucose Arterial Blood Ionized Calcium Urine WBC (Auto) 06/04/21 06/04/21 06/04/21 09:48 11:08 17:33 WBC RBC Hgb Hct MCV MCH MCHC RDW [place] # (Auto) Seg Neutrophils % Seg Neuts % (Manual) Lymphocytes % (Manual) Monocytes % (Manual) Seg Neutrophils # Seg Neutrophils # Man Lymphocytes # (Manual) Monocytes # (Manual) PT APTT D-Dimer Heparin Anti-Xa Level ABG pH POC ABG pCO2 POC ABG pO2 ABG pO2 ABG Hemoglobin ABG Oxyhemoglobin ABG Sodium ABG Potassium ABG Chloride ABG Glucose Carboxyhemoglobin Sodium Potassium Chloride Carbon Dioxide BUN Creatinine Glucose POC Glucose 198 H 234 H 247 H Lactic Acid Calcium Phosphorus Magnesium Ferritin AST ALT Alkaline Phosphatase Lactate Dehydrogenase Troponin T C-Reactive Protein Total Protein Albumin HDL Cholesterol Arterial Blood Glucose Arterial Blood Ionized Calcium Urine WBC (Auto) 06/04/21 06/05/21 06/05/21 23:30 05:38 11:24 WBC RBC Hgb Hct MCV MCH MCHC RDW [place] # (Auto) Seg Neutrophils % Seg Neuts % (Manual) Lymphocytes % (Manual) Monocytes % (Manual) Seg Neutrophils # Seg Neutrophils # Man Lymphocytes # (Manual) Monocytes # (Manual) PT APTT D-Dimer Heparin Anti-Xa Level ABG pH POC ABG pCO2 POC ABG pO2 ABG pO2 ABG Hemoglobin ABG Oxyhemoglobin ABG Sodium ABG Potassium ABG Chloride ABG Glucose Carboxyhemoglobin Sodium Potassium Chloride Carbon Dioxide BUN Creatinine Glucose POC Glucose 192 H 192 H 287 H Lactic Acid Calcium Phosphorus Magnesium Ferritin AST ALT Alkaline Phosphatase Lactate Dehydrogenase Troponin T C-Reactive Protein Total Protein Albumin HDL Cholesterol Arterial Blood Glucose Arterial Blood Ionized Calcium Urine WBC (Auto) 06/05/21 06/05/21 06/05/21 12:20 12:20 12:20 WBC 16.2 H RBC 2.56 L Hgb 8.8 L Hct 25.2 L MCV 98 H MCH 35 H MCHC 35 H RDW 15.3 H [place] # (Auto) Seg Neutrophils % Seg Neuts % (Manual) Lymphocytes % (Manual) Monocytes % (Manual) Seg Neutrophils # Seg Neutrophils # Man Lymphocytes # (Manual) Monocytes # (Manual) PT APTT 72.2 H* D-Dimer Heparin Anti-Xa Level ABG pH POC ABG pCO2 POC ABG pO2 ABG pO2 ABG Hemoglobin ABG Oxyhemoglobin ABG Sodium ABG Potassium ABG Chloride ABG Glucose Carboxyhemoglobin Sodium 133 L Potassium Chloride 95.3 L Carbon Dioxide BUN 57 H Creatinine Glucose 313 H POC Glucose Lactic Acid Calcium Phosphorus Magnesium Ferritin AST 90 H ALT 79 H Alkaline Phosphatase 262 H Lactate Dehydrogenase Troponin T C-Reactive Protein Total Protein Albumin 2.7 L HDL Cholesterol Arterial Blood Glucose Arterial Blood Ionized Calcium Urine WBC (Auto) 06/05/21 06/05/21 06/05/21 17:50 22:57 23:36 WBC RBC Hgb Hct MCV MCH MCHC RDW [place] # (Auto) Seg Neutrophils % Seg Neuts % (Manual) Lymphocytes % (Manual) Monocytes % (Manual) Seg Neutrophils # Seg Neutrophils # Man Lymphocytes # (Manual) Monocytes # (Manual) PT APTT D-Dimer Heparin Anti-Xa Level 0.28 L ABG pH POC ABG pCO2 POC ABG pO2 ABG pO2 ABG Hemoglobin ABG Oxyhemoglobin ABG Sodium ABG Potassium ABG Chloride ABG Glucose Carboxyhemoglobin Sodium Potassium Chloride Carbon Dioxide BUN Creatinine Glucose POC Glucose 275 H 223 H Lactic Acid Calcium Phosphorus Magnesium Ferritin AST ALT Alkaline Phosphatase Lactate Dehydrogenase Troponin T C-Reactive Protein Total Protein Albumin HDL Cholesterol Arterial Blood Glucose Arterial Blood Ionized Calcium Urine WBC (Auto) 06/06/21 06/06/21 06/06/21 04:57 04:57 05:02 WBC 15.7 H RBC 2.77 L Hgb 9.4 L Hct 27.2 L MCV 98 H MCH 34 H MCHC RDW 15.4 H [place] # (Auto) Seg Neutrophils % Seg Neuts % (Manual) Lymphocytes % (Manual) Monocytes % (Manual) Seg Neutrophils # Seg Neutrophils # Man Lymphocytes # (Manual) Monocytes # (Manual) PT APTT D-Dimer Heparin Anti-Xa Level ABG pH POC ABG pCO2 POC ABG pO2 ABG pO2 ABG Hemoglobin ABG Oxyhemoglobin ABG Sodium ABG Potassium ABG Chloride ABG Glucose Carboxyhemoglobin Sodium Potassium 5.7 H Chloride Carbon Dioxide BUN 57 H Creatinine Glucose 245 H POC Glucose 217 H Lactic Acid Calcium Phosphorus Magnesium Ferritin AST 99 H ALT 136 H Alkaline Phosphatase 312 H Lactate Dehydrogenase Troponin T C-Reactive Protein Total Protein 6.1 L Albumin 3.1 L HDL Cholesterol Arterial Blood Glucose Arterial Blood Ionized Calcium Urine WBC (Auto) 06/06/21 06/06/21 06/06/21 11:37 17:34 18:09 WBC RBC Hgb Hct MCV MCH MCHC RDW [place] # (Auto) Seg Neutrophils % Seg Neuts % (Manual) Lymphocytes % (Manual) Monocytes % (Manual) Seg Neutrophils # Seg Neutrophils # Man Lymphocytes # (Manual) Monocytes # (Manual) PT APTT D-Dimer Heparin Anti-Xa Level ABG pH POC ABG pCO2 POC ABG pO2 ABG pO2 ABG Hemoglobin ABG Oxyhemoglobin ABG Sodium ABG Potassium ABG Chloride ABG Glucose Carboxyhemoglobin Sodium Potassium 5.2 H Chloride Carbon Dioxide BUN 48 H Creatinine Glucose 245 H POC Glucose 251 H 217 H Lactic Acid Calcium Phosphorus Magnesium Ferritin AST ALT Alkaline Phosphatase Lactate Dehydrogenase Troponin T C-Reactive Protein Total Protein Albumin HDL Cholesterol Arterial Blood Glucose Arterial Blood Ionized Calcium Urine WBC (Auto) 06/06/21 06/07/21 06/07/21 23:53 04:45 04:45 WBC 21.5 H RBC 2.71 L Hgb 9.0 L Hct 26.9 L MCV 99 H MCH 33 H MCHC RDW 15.3 H [place] # (Auto) Seg Neutrophils % Seg Neuts % (Manual) Lymphocytes % (Manual) Monocytes % (Manual) Seg Neutrophils # Seg Neutrophils # Man Lymphocytes # (Manual) Monocytes # (Manual) PT APTT D-Dimer Heparin Anti-Xa Level 0.10 L ABG pH POC ABG pCO2 POC ABG pO2 ABG pO2 ABG Hemoglobin ABG Oxyhemoglobin ABG Sodium ABG Potassium ABG Chloride ABG Glucose Carboxyhemoglobin Sodium Potassium Chloride Carbon Dioxide BUN Creatinine Glucose POC Glucose 224 H Lactic Acid Calcium Phosphorus Magnesium Ferritin AST ALT Alkaline Phosphatase Lactate Dehydrogenase Troponin T C-Reactive Protein Total Protein Albumin HDL Cholesterol Arterial Blood Glucose Arterial Blood Ionized Calcium Urine WBC (Auto) 06/07/21 06/07/21 06/07/21 04:45 05:11 11:50 WBC RBC Hgb Hct MCV MCH MCHC RDW [place] # (Auto) Seg Neutrophils % Seg Neuts % (Manual) Lymphocytes % (Manual) Monocytes % (Manual) Seg Neutrophils # Seg Neutrophils # Man Lymphocytes # (Manual) Monocytes # (Manual) PT APTT D-Dimer Heparin Anti-Xa Level ABG pH POC ABG pCO2 POC ABG pO2 ABG pO2 ABG Hemoglobin ABG Oxyhemoglobin ABG Sodium ABG Potassium ABG Chloride ABG Glucose Carboxyhemoglobin Sodium Potassium 5.4 H Chloride Carbon Dioxide BUN 55 H Creatinine Glucose 178 H POC Glucose 156 H 118 H Lactic Acid Calcium Phosphorus Magnesium Ferritin AST ALT Alkaline Phosphatase Lactate Dehydrogenase Troponin T C-Reactive Protein Total Protein Albumin HDL Cholesterol Arterial Blood Glucose Arterial Blood Ionized Calcium Urine WBC (Auto) 06/07/21 06/07/21 06/07/21 14:52 17:45 20:43 WBC RBC Hgb Hct MCV MCH MCHC RDW [place] # (Auto) Seg Neutrophils % Seg Neuts % (Manual) Lymphocytes % (Manual) Monocytes % (Manual) Seg Neutrophils # Seg Neutrophils # Man Lymphocytes # (Manual) Monocytes # (Manual) PT APTT D-Dimer Heparin Anti-Xa Level 0.73 H ABG pH POC ABG pCO2 POC ABG pO2 ABG pO2 ABG Hemoglobin ABG Oxyhemoglobin ABG Sodium ABG Potassium ABG Chloride ABG Glucose Carboxyhemoglobin Sodium Potassium Chloride Carbon Dioxide BUN Creatinine Glucose POC Glucose 164 H Lactic Acid Calcium Phosphorus Magnesium Ferritin AST ALT Alkaline Phosphatase Lactate Dehydrogenase Troponin T C-Reactive Protein 28.90 H Total Protein Albumin HDL Cholesterol Arterial Blood Glucose Arterial Blood Ionized Calcium Urine WBC (Auto) 06/07/21 06/08/21 06/08/21 23:15 04:25 04:25 WBC 15.8 H RBC 2.58 L Hgb 8.6 L Hct 25.7 L MCV 100 H MCH 33 H MCHC RDW [place] # (Auto) Seg Neutrophils % Seg Neuts % (Manual) 76.0 H Lymphocytes % (Manual) 6.0 L Monocytes % (Manual) 8.0 H Seg Neutrophils # Seg Neutrophils # Man 12.0 H Lymphocytes # (Manual) 0.9 L Monocytes # (Manual) 1.3 H PT APTT D-Dimer Heparin Anti-Xa Level ABG pH POC ABG pCO2 POC ABG pO2 ABG pO2 ABG Hemoglobin ABG Oxyhemoglobin ABG Sodium ABG Potassium ABG Chloride ABG Glucose Carboxyhemoglobin Sodium Potassium Chloride Carbon Dioxide BUN 65 H Creatinine Glucose 205 H POC Glucose 236 H Lactic Acid Calcium Phosphorus Magnesium Ferritin AST ALT Alkaline Phosphatase Lactate Dehydrogenase Troponin T C-Reactive Protein Total Protein Albumin HDL Cholesterol Arterial Blood Glucose Arterial Blood Ionized Calcium Urine WBC (Auto) 06/08/21 06/08/21 06/08/21 05:36 11:18 17:41 WBC RBC Hgb Hct MCV MCH MCHC RDW [place] # (Auto) Seg Neutrophils % Seg Neuts % (Manual) Lymphocytes % (Manual) Monocytes % (Manual) Seg Neutrophils # Seg Neutrophils # Man Lymphocytes # (Manual) Monocytes # (Manual) PT APTT D-Dimer Heparin Anti-Xa Level ABG pH POC ABG pCO2 POC ABG pO2 ABG pO2 ABG Hemoglobin ABG Oxyhemoglobin ABG Sodium ABG Potassium ABG Chloride ABG Glucose Carboxyhemoglobin Sodium Potassium Chloride Carbon Dioxide BUN Creatinine Glucose POC Glucose 185 H 203 H 173 H Lactic Acid Calcium Phosphorus Magnesium Ferritin AST ALT Alkaline Phosphatase Lactate Dehydrogenase Troponin T C-Reactive Protein Total Protein Albumin HDL Cholesterol Arterial Blood Glucose Arterial Blood Ionized Calcium Urine WBC (Auto) 06/08/21 06/09/21 06/09/21 23:34 05:16 05:20 WBC 15.0 H RBC 2.54 L Hgb 8.5 L Hct 25.2 L MCV 99 H MCH 33 H MCHC RDW [place] # (Auto) Seg Neutrophils % Seg Neuts % (Manual) Lymphocytes % (Manual) Monocytes % (Manual) Seg Neutrophils # Seg Neutrophils # Man Lymphocytes # (Manual) Monocytes # (Manual) PT APTT D-Dimer Heparin Anti-Xa Level ABG pH POC ABG pCO2 POC ABG pO2 ABG pO2 ABG Hemoglobin ABG Oxyhemoglobin ABG Sodium ABG Potassium ABG Chloride ABG Glucose Carboxyhemoglobin Sodium Potassium Chloride Carbon Dioxide BUN Creatinine Glucose POC Glucose 200 H 154 H Lactic Acid Calcium Phosphorus Magnesium Ferritin AST ALT Alkaline Phosphatase Lactate Dehydrogenase Troponin T C-Reactive Protein Total Protein Albumin HDL Cholesterol Arterial Blood Glucose Arterial Blood Ionized Calcium Urine WBC (Auto) 06/09/21 06/09/21 06/09/21 05:20 11:40 17:09 WBC RBC Hgb Hct MCV MCH MCHC RDW [place] # (Auto) Seg Neutrophils % Seg Neuts % (Manual) Lymphocytes % (Manual) Monocytes % (Manual) Seg Neutrophils # Seg Neutrophils # Man Lymphocytes # (Manual) Monocytes # (Manual) PT APTT D-Dimer Heparin Anti-Xa Level ABG pH POC ABG pCO2 POC ABG pO2 ABG pO2 ABG Hemoglobin ABG Oxyhemoglobin ABG Sodium ABG Potassium ABG Chloride ABG Glucose Carboxyhemoglobin Sodium Potassium 5.2 H Chloride Carbon Dioxide BUN 69 H Creatinine Glucose 163 H POC Glucose 232 H 137 H Lactic Acid Calcium Phosphorus Magnesium Ferritin AST ALT Alkaline Phosphatase Lactate Dehydrogenase Troponin T C-Reactive Protein Total Protein Albumin HDL Cholesterol Arterial Blood Glucose Arterial Blood Ionized Calcium Urine WBC (Auto) 06/09/21 06/10/21 06/10/21 23:31 04:42 04:42 WBC 14.5 H RBC 2.41 L Hgb 8.2 L Hct 24.0 L MCV 100 H MCH 34 H MCHC RDW 15.8 H [place] # (Auto) Seg Neutrophils % Seg Neuts % (Manual) Lymphocytes % (Manual) Monocytes % (Manual) Seg Neutrophils # Seg Neutrophils # Man Lymphocytes # (Manual) Monocytes # (Manual) PT APTT D-Dimer Heparin Anti-Xa Level ABG pH POC ABG pCO2 POC ABG pO2 ABG pO2 ABG Hemoglobin ABG Oxyhemoglobin ABG Sodium ABG Potassium ABG Chloride ABG Glucose Carboxyhemoglobin Sodium 146 H D Potassium 3.4 L D Chloride Carbon Dioxide BUN 62 H Creatinine Glucose 174 H POC Glucose 162 H Lactic Acid Calcium Phosphorus Magnesium Ferritin AST ALT Alkaline Phosphatase Lactate Dehydrogenase Troponin T C-Reactive Protein Total Protein Albumin HDL Cholesterol Arterial Blood Glucose Arterial Blood Ionized Calcium Urine WBC (Auto) 06/10/21 06/10/21 06/10/21 05:36 11:43 18:24 WBC RBC Hgb Hct MCV MCH MCHC RDW [place] # (Auto) Seg Neutrophils % Seg Neuts % (Manual) Lymphocytes % (Manual) Monocytes % (Manual) Seg Neutrophils # Seg Neutrophils # Man Lymphocytes # (Manual) Monocytes # (Manual) PT APTT D-Dimer Heparin Anti-Xa Level ABG pH POC ABG pCO2 POC ABG pO2 ABG pO2 ABG Hemoglobin ABG Oxyhemoglobin ABG Sodium ABG Potassium ABG Chloride ABG Glucose Carboxyhemoglobin Sodium Potassium Chloride Carbon Dioxide BUN Creatinine Glucose POC Glucose 149 H 183 H 139 H Lactic Acid Calcium Phosphorus Magnesium Ferritin AST ALT Alkaline Phosphatase Lactate Dehydrogenase Troponin T C-Reactive Protein Total Protein Albumin HDL Cholesterol Arterial Blood Glucose Arterial Blood Ionized Calcium Urine WBC (Auto) 06/10/21 06/11/21 06/11/21 23:32 04:17 05:22 WBC RBC Hgb Hct MCV MCH MCHC RDW [place] # (Auto) Seg Neutrophils % Seg Neuts % (Manual) Lymphocytes % (Manual) Monocytes % (Manual) Seg Neutrophils # Seg Neutrophils # Man Lymphocytes # (Manual) Monocytes # (Manual) PT APTT D-Dimer Heparin Anti-Xa Level 0.84 H ABG pH POC ABG pCO2 POC ABG pO2 ABG pO2 ABG Hemoglobin ABG Oxyhemoglobin ABG Sodium ABG Potassium ABG Chloride ABG Glucose Carboxyhemoglobin Sodium Potassium Chloride Carbon Dioxide BUN Creatinine Glucose POC Glucose 149 H 138 H Lactic Acid Calcium Phosphorus Magnesium Ferritin AST ALT Alkaline Phosphatase Lactate Dehydrogenase Troponin T C-Reactive Protein Total Protein Albumin HDL Cholesterol Arterial Blood Glucose Arterial Blood Ionized Calcium Urine WBC (Auto) 06/11/21 06/11/21 06/12/21 11:26 23:56 04:44 WBC 15.5 H RBC 2.59 L Hgb 8.6 L Hct 25.8 L MCV 100 H MCH 33 H MCHC RDW 15.3 H [place] # (Auto) Seg Neutrophils % Seg Neuts % (Manual) Lymphocytes % (Manual) Monocytes % (Manual) Seg Neutrophils # Seg Neutrophils # Man Lymphocytes # (Manual) Monocytes # (Manual) PT APTT D-Dimer Heparin Anti-Xa Level ABG pH POC ABG pCO2 POC ABG pO2 ABG pO2 ABG Hemoglobin ABG Oxyhemoglobin ABG Sodium ABG Potassium ABG Chloride ABG Glucose Carboxyhemoglobin Sodium Potassium Chloride Carbon Dioxide BUN Creatinine Glucose POC Glucose 198 H 199 H Lactic Acid Calcium Phosphorus Magnesium Ferritin AST ALT Alkaline Phosphatase Lactate Dehydrogenase Troponin T C-Reactive Protein Total Protein Albumin HDL Cholesterol Arterial Blood Glucose Arterial Blood Ionized Calcium Urine WBC (Auto) 06/12/21 06/12/21 06/12/21 04:44 04:44 05:29 WBC RBC Hgb Hct MCV MCH MCHC RDW [place] # (Auto) Seg Neutrophils % Seg Neuts % (Manual) Lymphocytes % (Manual) Monocytes % (Manual) Seg Neutrophils # Seg Neutrophils # Man Lymphocytes # (Manual) Monocytes # (Manual) PT APTT D-Dimer Heparin Anti-Xa Level ABG pH POC ABG pCO2 POC ABG pO2 ABG pO2 ABG Hemoglobin ABG Oxyhemoglobin ABG Sodium ABG Potassium ABG Chloride ABG Glucose Carboxyhemoglobin Sodium 148 H Potassium Chloride Carbon Dioxide BUN 49 H 51 H Creatinine Glucose 222 H 223 H POC Glucose 193 H Lactic Acid Calcium Phosphorus Magnesium 3.20 H Ferritin AST 81 H ALT 83 H Alkaline Phosphatase 215 H Lactate Dehydrogenase Troponin T C-Reactive Protein Total Protein Albumin 3.2 L HDL Cholesterol Arterial Blood Glucose Arterial Blood Ionized Calcium Urine WBC (Auto) 06/12/21 06/12/21 06/12/21 11:21 17:55 23:23 WBC RBC Hgb Hct MCV MCH MCHC RDW [place] # (Auto) Seg Neutrophils % Seg Neuts % (Manual) Lymphocytes % (Manual) Monocytes % (Manual) Seg Neutrophils # Seg Neutrophils # Man Lymphocytes # (Manual) Monocytes # (Manual) PT APTT D-Dimer Heparin Anti-Xa Level ABG pH POC ABG pCO2 POC ABG pO2 ABG pO2 ABG Hemoglobin ABG Oxyhemoglobin ABG Sodium ABG Potassium ABG Chloride ABG Glucose Carboxyhemoglobin Sodium Potassium Chloride Carbon Dioxide BUN Creatinine Glucose POC Glucose 185 H 210 H 211 H Lactic Acid Calcium Phosphorus Magnesium Ferritin AST ALT Alkaline Phosphatase Lactate Dehydrogenase Troponin T C-Reactive Protein Total Protein Albumin HDL Cholesterol Arterial Blood Glucose Arterial Blood Ionized Calcium Urine WBC (Auto) 06/13/21 06/13/21 06/13/21 04:34 04:34 05:17 WBC 17.2 H RBC 2.56 L Hgb 8.6 L Hct 26.1 L MCV 102 H MCH 34 H MCHC RDW [place] # (Auto) Seg Neutrophils % Seg Neuts % (Manual) Lymphocytes % (Manual) Monocytes % (Manual) Seg Neutrophils # Seg Neutrophils # Man Lymphocytes # (Manual) Monocytes # (Manual) PT APTT D-Dimer Heparin Anti-Xa Level ABG pH POC ABG pCO2 POC ABG pO2 ABG pO2 ABG Hemoglobin ABG Oxyhemoglobin ABG Sodium ABG Potassium ABG Chloride ABG Glucose Carboxyhemoglobin Sodium 149 H Potassium 5.1 H Chloride Carbon Dioxide BUN 52 H Creatinine 1.6 H Glucose 231 H POC Glucose 207 H Lactic Acid Calcium Phosphorus Magnesium Ferritin AST 69 H ALT 74 H Alkaline Phosphatase 197 H Lactate Dehydrogenase Troponin T C-Reactive Protein Total Protein Albumin 3.0 L HDL Cholesterol Arterial Blood Glucose Arterial Blood Ionized Calcium Urine WBC (Auto) 06/13/21 06/13/21 06/13/21 10:44 11:07 12:07 WBC RBC Hgb Hct MCV MCH MCHC RDW [place] # (Auto) Seg Neutrophils % Seg Neuts % (Manual) Lymphocytes % (Manual) Monocytes % (Manual) Seg Neutrophils # Seg Neutrophils # Man Lymphocytes # (Manual) Monocytes # (Manual) PT APTT D-Dimer Heparin Anti-Xa Level < 0.10 L ABG pH 7.455 H POC ABG pCO2 POC ABG pO2 ABG pO2 ABG Hemoglobin 8.6 L ABG Oxyhemoglobin ABG Sodium ABG Potassium 4.7 H ABG Chloride ABG Glucose 277 H Carboxyhemoglobin Sodium Potassium Chloride Carbon Dioxide BUN Creatinine Glucose POC Glucose 241 H Lactic Acid Calcium Phosphorus Magnesium Ferritin AST ALT Alkaline Phosphatase Lactate Dehydrogenase Troponin T C-Reactive Protein Total Protein Albumin HDL Cholesterol Arterial Blood Glucose 277 H Arterial Blood Ionized Calcium Urine WBC (Auto) 06/13/21 06/13/21 06/13/21 17:35 21:13 23:19 WBC RBC Hgb Hct MCV MCH MCHC RDW [place] # (Auto) Seg Neutrophils % Seg Neuts % (Manual) Lymphocytes % (Manual) Monocytes % (Manual) Seg Neutrophils # Seg Neutrophils # Man Lymphocytes # (Manual) Monocytes # (Manual) PT APTT D-Dimer Heparin Anti-Xa Level 0.92 H ABG pH POC ABG pCO2 POC ABG pO2 ABG pO2 ABG Hemoglobin ABG Oxyhemoglobin ABG Sodium ABG Potassium ABG Chloride ABG Glucose Carboxyhemoglobin Sodium Potassium Chloride Carbon Dioxide BUN Creatinine Glucose POC Glucose 233 H 232 H Lactic Acid Calcium Phosphorus Magnesium Ferritin AST ALT Alkaline Phosphatase Lactate Dehydrogenase Troponin T C-Reactive Protein Total Protein Albumin HDL Cholesterol Arterial Blood Glucose Arterial Blood Ionized Calcium Urine WBC (Auto) 06/14/21 06/14/21 06/14/21 04:21 04:21 05:36 WBC 15.6 H RBC 2.26 L Hgb 7.6 L Hct 22.9 L MCV 101 H MCH 34 H MCHC RDW 15.3 H [place] # (Auto) Seg Neutrophils % Seg Neuts % (Manual) Lymphocytes % (Manual) Monocytes % (Manual) Seg Neutrophils # Seg Neutrophils # Man Lymphocytes # (Manual) Monocytes # (Manual) PT APTT D-Dimer Heparin Anti-Xa Level ABG pH POC ABG pCO2 POC ABG pO2 ABG pO2 ABG Hemoglobin ABG Oxyhemoglobin ABG Sodium ABG Potassium ABG Chloride ABG Glucose Carboxyhemoglobin Sodium 149 H Potassium Chloride 107.8 H Carbon Dioxide BUN 66 H Creatinine 1.8 H Glucose 192 H POC Glucose 166 H Lactic Acid Calcium Phosphorus Magnesium Ferritin AST ALT Alkaline Phosphatase Lactate Dehydrogenase Troponin T C-Reactive Protein Total Protein Albumin HDL Cholesterol Arterial Blood Glucose Arterial Blood Ionized Calcium Urine WBC (Auto) 06/14/21 06/14/21 06/14/21 12:21 17:07 23:14 WBC RBC Hgb Hct MCV MCH MCHC RDW [place] # (Auto) Seg Neutrophils % Seg Neuts % (Manual) Lymphocytes % (Manual) Monocytes % (Manual) Seg Neutrophils # Seg Neutrophils # Man Lymphocytes # (Manual) Monocytes # (Manual) PT APTT D-Dimer Heparin Anti-Xa Level ABG pH POC ABG pCO2 POC ABG pO2 ABG pO2 ABG Hemoglobin ABG Oxyhemoglobin ABG Sodium ABG Potassium ABG Chloride ABG Glucose Carboxyhemoglobin Sodium Potassium Chloride Carbon Dioxide BUN Creatinine Glucose POC Glucose 190 H 172 H 195 H Lactic Acid Calcium Phosphorus Magnesium Ferritin AST ALT Alkaline Phosphatase Lactate Dehydrogenase Troponin T C-Reactive Protein Total Protein Albumin HDL Cholesterol Arterial Blood Glucose Arterial Blood Ionized Calcium Urine WBC (Auto) 06/15/21 06/15/21 06/15/21 05:08 05:08 05:47 WBC 15.3 H RBC 2.23 L Hgb 7.3 L Hct 22.5 L MCV 101 H MCH 33 H MCHC RDW [place] # (Auto) Seg Neutrophils % Seg Neuts % (Manual) Lymphocytes % (Manual) Monocytes % (Manual) Seg Neutrophils # Seg Neutrophils # Man Lymphocytes # (Manual) Monocytes # (Manual) PT APTT D-Dimer Heparin Anti-Xa Level ABG pH POC ABG pCO2 POC ABG pO2 ABG pO2 ABG Hemoglobin ABG Oxyhemoglobin ABG Sodium ABG Potassium ABG Chloride ABG Glucose Carboxyhemoglobin Sodium 147 H Potassium Chloride Carbon Dioxide BUN 60 H Creatinine 1.6 H Glucose 158 H POC Glucose 150 H Lactic Acid Calcium 8.2 L Phosphorus 5.90 H Magnesium 3.20 H Ferritin AST ALT Alkaline Phosphatase Lactate Dehydrogenase Troponin T C-Reactive Protein Total Protein Albumin HDL Cholesterol Arterial Blood Glucose Arterial Blood Ionized Calcium Urine WBC (Auto) 06/15/21 06/15/21 10:19 11:25 WBC RBC Hgb Hct MCV MCH MCHC RDW [place] # (Auto) Seg Neutrophils % Seg Neuts % (Manual) Lymphocytes % (Manual) Monocytes % (Manual) Seg Neutrophils # Seg Neutrophils # Man Lymphocytes # (Manual) Monocytes # (Manual) PT APTT D-Dimer Heparin Anti-Xa Level ABG pH 7.471 H POC ABG pCO2 POC ABG pO2 ABG pO2 ABG Hemoglobin ABG Oxyhemoglobin ABG Sodium ABG Potassium ABG Chloride ABG Glucose Carboxyhemoglobin Sodium Potassium Chloride Carbon Dioxide BUN Creatinine Glucose POC Glucose 133 H Lactic Acid Calcium Phosphorus Magnesium Ferritin AST ALT Alkaline Phosphatase Lactate Dehydrogenase Troponin T C-Reactive Protein Total Protein Albumin HDL Cholesterol Arterial Blood Glucose Arterial Blood Ionized Calcium Urine WBC (Auto) Allied health notes reviewed: nursing
[2021-06-15] MEDS: HEPARIN/ 0.45% NACL DRIP 25,000 UNIT/500 ML BAG IV SCH (14:16)
[2021-06-15 16:21] LABS: Creatinine,Urine 74.7 mg/dL (0.1-20.0)
[2021-06-15 17:29] LABS: Mucus,Urine FEW /HPF
[2021-06-15 17:32] LABS: Bacteria,Urine 1+ /HPF (Negative); Bilirubin,Urine NEG (Negative); Blood,Urine MOD (Negative); Color,Urine Yellow (Yellow); Protein,Urine <15 mg/dL mg/dL (Negative); Urobilinogen,Urine < 2.0 mg/dL (<2.0)
[2021-06-15] MEDS: INSULIN GLARGINE 100 UNITS/ML SUB-Q SCH (22:22)
[2021-06-16 05:47] LABS: Hematocrit 22.4 % (30.3-42.9); Hemoglobin 7.5 gm/dl (10.1-14.3); Mean Corpuscular HGB Conc 34 % (30-34); Mean Corpuscular Volume 101 fl (79-97); Platelet Count 227 K/mm3 (140-440); Red Blood Count 2.23 M/mm3 (3.65-5.03); Red Cell Distribution Width 14.8 % (13.2-15.2)
[2021-06-16] MEDS: FREE WATER PO SCH ×4 (05:59→18:12)
[2021-06-16] MEDS: hydrALAZINE 25 MG TAB PO SCH ×3 (06:02→22:32)
[2021-06-16 06:05] LABS: Calcium 8.6 mg/dL (8.4-10.2)
--- NOTE | 2021-06-16 08:46 | Progress Note ---
Assessment and Plan Assessment and plan: This is a 65 year old female with HTN, nonepileptic spells, PTSD, close head injury, DM, CAD s/p stents and CT, independence, hyperlipidemia admitted with sepsis, pneumonia, acute proximal respiratory failure, toxic metabolic encephalopathy, suspected anoxic brain injury, metabolic acidosis Neuro: Toxic metabolic encephalopathy, likely anoxic brain injury, tonic-cloninc seziure; h/o nonepileptic spells, PTSD, closed head injury -Neurology consulted, appreciate recommendations -CT head completed->see results, without acute or large territorial infarct -Per neurology: MRI brain is suggestive of water shed Infarct Bilateral -- mostly related to Hypoperfusion -06/01 repeat MRI brain noted, possible subacute ischemic changes. -Off sedation -Intact cough/gag, pupils sluggish -Keppra -EEG showed no signs of seizure -prn ativan -Patient is off sedation, open eyes spontaneously, pupils reactive, with +gag and cough. -Not following commands, no movement to stimuli Cardio: S/p cardiac arrest, A. fib with RVR, h/o HTN -Currently on Labetalol, Hydralazine, valsartan, & Doxazosin -PRN hydral IV -Cardiology consulted, appreciate recommendations -05/2020 dobutamine thallium stress test showed normal perfusion study. -05/2020 echo showed normal left ventricular systolic function. -NIBP per protocol Resp: Acute hypoxic respiratory failure -CCM consulted, appreciate recommendations -Intubated 05/25 with 7.0 oett at 23 lip, trach on 06/12 -06/15 T piece trials started, currently on T-piece -see RT notes for titration -ABG/CXR -Continuous SP02 monitoring -Scopalamine and robinul for secretions -discontinued today -VAP bundle GI: protein -aspen malnutrition -Ntr consult for TF -PEG placed 06/12 -PPI -24hr +1630 -BR: senokot, maalox, colace; prn dulcolex -BM: 06/10 : Acute renal injury likely 2/2 to vasomotor nephrology -increase noted in bun/cr 06/13 -strict I&O -daily weights -urine lytes ordered -candie -Trend BMP -Monitor and replete electrolytes as needed -FWF 250 q 4hours -hypernatremia and Cr slightly improving Endo: Hyperglycemia, h/o DM -SSI -Lantus, titrate as needed -Avoid hypoglycemia -accucheck q6 Heme: Leukocytosis -CTA chest without evidence of PE -IV heparin d/t afib -transitioned to PO -CAMILO-VASC2 score 4 -Trend CBC -Transfuse for hgb<7 ID: Sepsis, Bilateral Lower Lobe Infiltrates -COVID 19 PCR (-) -s/p cefepime 05/25-05/29 -admit cxr with infiltrates, CTA chest with dense dependent consolidation/atelectasis in lungs -Monitor temp and WBC curve -noted spike in temp overnight -CXR, Blood culture, UA, Sputum culture ordered -BC/UC/Tracheal aspirate NGTD from 05/25 -Covid 19 PCR negative -06/07 CRP 28.90 and procal 0.36 Dispo: pending LTACH We will closely monitor the patient and adjust management as needed Plan of care reviewed with the patient's nurse I also discussed with the spindle tester Dr. Burt The high probability of a clinically significant, sudden or life threatening deterioration of the [multiple] system(s) required my full and direct attention, intervention and personal management. The aggregate critical care time was [60] minutes. This time is in addition to time spent performing reported procedures but includes the following: [x] Data Review and interpretation [x] Patient assessment and monitoring of vital signs [x] Documentation [x] Medication orders and management Disposition Plan: icu Total Time Spent with Patient (Minutes): 60 History Interval history: 65-year-old female, history of nonepileptic spells, PTSD, closed head injury, hypertension, diabetes, CAD, presents to the ED following cardiac arrest. EMS states Patient collapsed and became unresponsive. Patient was pulseless and apneic. Rhythm was asystole. Patient was intubated by EMS. She was given epi x2. ACLS times approximately 10 minutes followed by return of pulses. Accu- Chek in the 200s. With initial rhythm check here in ED, patient was pulseless, so ACLS restarted. Patient has return of pulse and noted to be in atrial fib, initiated on iv keppra and heparin drip. 05/26/21: Updated family at the bedside, Covid test is negative. Will order EEG and neuro consult. Remains intubated, follow clinically. Sedated on Midazolam and Propofol, just received one dose of Lorazepam for witnessed seizure by RN. NSR now, on heparin drip 05/27/21; remains intubated. pending EEG and neuro eval. wean off vent as tolerated. Continue heparin drip per cardiology, replete potassium yesterday, follow BMP. BP noted to be elevated, next started on antihypertensives. 05/28/21; BP noted to be elevated, initiated on antihypertensive, remains intubated. Pending neurology evaluation and EEG. Continue supportive care, follow BMP. 05/29/21: Ordered for MRI brain, continue Keppra, pending EEG. Appreciate neuro recommendation. follow BMP, tolerating TF 05/30/21: Patient remains intubated, pending MRI brain, follow neurology recommendation. EEG showed diffuse slowing. 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 off sedation now, cont to follow. gurded prognosis 06/01: MRI was suggestive of watershed infarct bilaterally and was seen by neurology and recommend to do MRI with gadolinium. Patient is off sedation and still unresponsive. Prognosis is guarded. 06/02: Continue current management. Prognosis is guarded. Patient needs trach. 06/03: Patient is unresponsive spite of all sedatives. Prognosis is guarded to poor. Neurology consult appreciated. 06/04: Patient is unresponsive. Patient is off sedatives. Blood sugar is uncontrolled and I adjusted her insulin. Neurology consult appreciated. Prognosis is guarded to poor. 06/05/21- Patient remains ETT and on vent support. Off sedation with some improvement in neuro status, but is not following commands. Patient is tolerating SBT trial this am, still on the heparin gtt. AM labs is pending. Patient is still hyperglycemic, increased Qhs lantus. Continue supportive care. 06/06/21- Patient is intubated and on the vent. No longer on sedation, awake but unresponsive, tolerating SBT. Hyperglycemia this am, X1 dose of kayaxalate orderd. Persistent hyperglycemia, insulin adjusted. Continue to monitor electrolytes, repeat BMP this afternoon and am labs ordered. 06/07/21- Patient remains intubated and on the vent. Neuro status is unchanged, spontaneously open yes but is not following commands. SBT trial again, plan to place back on a rate overnight. Leukocytosis noted from this morning lab, stat procalc and CRP ordered, d/w CCM no abx at this time. K 5.4 today, kayalalxate given. Continue to monitor leukocytosis and electrolytes. Am labs ordered 06/08/21- Patient remains intubated and on the vent with no significant change in her neuro status. Patient with no BM in 7days, abdominal soft with positive bowel sounds, colace added and PRN ducolax Supp PRN. Continue to monitor leukocytosis and electrolytes, am labs ordered. Plan for trach and PEG, surgery consulted. 06/09/21- Patient remains stable, intubated with no significant change in neuro status. Trach and Peg cancelled for today. Plan for possibly next week. Hyperkalemia again today, chart review for possible meds interaction. X1 dose of kayexalate ordered. Still no BM today. Episode of emesis today, TF held and NGT to LIS until tommorrow. Orders place for KUB today and Chest XR for the morning. Morning labs ordered. 06/10: Continue supportive care. Trach and PEG planned for early next week. KUB and x-ray with no significant change. Opacity still persist. Critical care management noted. Patient still persistent leukocytosis we will continue to monitor mild hypokalemia noted will replace with potassium. Also noted mild hypernatremia. Agree with holding tube feeds at this time 06/11: Discussed with nursing staff to change to history trickle feeds. Patient is planned for trach and PEG Saturday or Saturday. Continue current management also discussed to hold heparin drip for planned procedure with noted timeframe. We will recheck labs to ensure correction of electrolytes. 06/12/21- Patient's status is unchanged. No significant events overnight. Plan for trach and PEG today. TF and heparin gtt on hold. Continue supportive care. Continue to monitor electrolytes, am labs ordered. 06/13/21- Patient is s/p trach and PEG. D/w surgery okay to use PEGTube and restart TF. Heparin gtt was also restarted per protocol. Persistent hypernatrem ia and FWF increased for 48hrs, mild hyperkalemia noted no intervention at this time. Continue to monitor renal function and electrolytes, am labs ordered. 06/14: Transition to PO anticoagulation from heparin gtt tomorrow. plan to place on tpiece tomorrow. 06/15: Patient spiked a temp today and was root cultured, h/h decreasing and stool occult ordered. Increase in insulin. T piece trials today. Small volume emesis x2 06/16; patient is on T-piece On heparin drip for A. fib, will transition to Eliquis I discussed the case with spindle tester History Interval history: I have seen and examined the patient in ICU this morning Patient's chart and medications reviewed Patient with cardiac arrest trach and PEG on T-piece No acute distress Hospitalist Physical - Constitutional Vitals: Temp Pulse Resp BP Pulse Ox 99.1 F 85 23 151/67 100 06/16/21 07:53 06/16/21 06:00 06/16/21 06:00 06/16/21 06:00 06/16/21 06:00 General appearance: Present: no acute distress, well-nourished, other (Trach and PEG on T-piece) - EENT Eyes: Present: PERRL, EOM intact ENT: other (Tracheostomy on T-piece) - Neck Neck: Present: supple, normal ROM - Respiratory Respiratory effort: normal Respiratory: bilateral: diminished, rhonchi, negative: rales, wheezing - Cardiovascular Rhythm: regular Heart Sounds: Present: S1 & S2 - Extremities Extremities: no ischemia, No edema - Abdominal General gastrointestinal: soft, non-tender, non-distended, normal bowel sounds - Integumentary Integumentary: Present: clear, warm - Psychiatric Psychiatric: other (Noncommunicative) - Neurologic Neurologic: other (Noncommunicative) HEART Score - HEART Score Troponin: Troponin T 0.226 ng/mL (0.00-0.029) H* D 05/25/21 15:19 Results - Labs CBC & Chem 7: 06/16/21 04:31 06/16/21 04:31 Labs: Laboratory Last Values WBC 13.8 K/mm3 (4.5-11.0) H 06/16/21 04:31 RBC 2.23 M/mm3 (3.65-5.03) L 06/16/21 04:31 Hgb 7.5 gm/dl (10.1-14.3) L 06/16/21 04:31 Hct 22.4 % (30.3-42.9) L 06/16/21 04:31 MCV 101 fl (79-97) H 06/16/21 04:31 MCH 34 pg (28-32) H 06/16/21 04:31 MCHC 34 % (30-34) 06/16/21 04:31 RDW 14.8 % (13.2-15.2) 06/16/21 04:31 Plt Count 227 K/mm3 (140-440) 06/16/21 04:31 Lymph % (Auto) 14.3 % (13.4-35.0) 05/28/21 04:00 [place] % (Auto) 6.9 % (0.0-7.3) 05/28/21 04:00 Eos % (Auto) 0.1 % (0.0-4.3) 05/28/21 04:00 Baso % (Auto) 0.5 % (0.0-1.8) 05/28/21 04:00 Lymph # (Auto) 1.9 K/mm3 (1.2-5.4) 05/28/21 04:00 [place] # (Auto) 0.9 K/mm3 (0.0-0.8) H 05/28/21 04:00 Eos # (Auto) 0.0 K/mm3 (0.0-0.4) 05/28/21 04:00 Baso # (Auto) 0.1 K/mm3 (0.0-0.1) 05/28/21 04:00 Add Manual Diff Complete 06/08/21 04:25 Total Counted 100 06/08/21 04:25 Seg Neutrophils % 78.2 % (40.0-70.0) H 05/28/21 04:00 Seg Neuts % (Manual) 76.0 % (40.0-70.0) H 06/08/21 04:25 Band Neutrophils % 4.0 % 06/08/21 04:25 Lymphocytes % (Manual) 6.0 % (13.4-35.0) L 06/08/21 04:25 Monocytes % (Manual) 8.0 % (0.0-7.3) H 06/08/21 04:25 Eosinophils % (Manual) 1.0 % (0.0-4.3) 06/08/21 04:25 Metamyelocytes % 3.0 % 06/08/21 04:25 Myelocytes % 2.0 % 06/08/21 04:25 Nucleated RBC % Not Reportable 06/08/21 04:25 Seg Neutrophils # 10.6 K/mm3 (1.8-7.7) H 05/28/21 04:00 Seg Neutrophils # Man 12.0 K/mm3 (1.8-7.7) H 06/08/21 04:25 Band Neutrophils # 0.6 K/mm3 06/08/21 04:25 Lymphocytes # (Manual) 0.9 K/mm3 (1.2-5.4) L 06/08/21 04:25 Abs React Lymphs (Man) 0.0 K/mm3 06/08/21 04:25 Monocytes # (Manual) 1.3 K/mm3 (0.0-0.8) H 06/08/21 04:25 Eosinophils # (Manual) 0.2 K/mm3 (0.0-0.4) 06/08/21 04:25 Basophils # (Manual) 0.0 K/mm3 (0.0-0.1) 06/08/21 04:25 Metamyelocytes # 0.5 K/mm3 06/08/21 04:25 Myelocytes # 0.3 K/mm3 06/08/21 04:25 Promyelocytes # 0.0 K/mm3 06/08/21 04:25 Blast Cells # 0.0 K/mm3 06/08/21 04:25 WBC Morphology Not Reportable 06/08/21 04:25 Hypersegmented Neuts Not Reportable 06/08/21 04:25 Hyposegmented Neuts Not Reportable 06/08/21 04:25 Hypogranular Neuts Not Reportable 06/08/21 04:25 Smudge Cells Not Reportable 06/08/21 04:25 Toxic Granulation Not Reportable 06/08/21 04:25 Toxic Vacuolation Not Reportable 06/08/21 04:25 Dohle Bodies Not Reportable 06/08/21 04:25 Pelger-Huet Anomaly Not Reportable 06/08/21 04:25 Peter Rods Not Reportable 06/08/21 04:25 Platelet Estimate Consistent w auto 06/08/21 04:25 Clumped Platelets Not Reportable 06/08/21 04:25 Plt Clumps, EDTA Not Reportable 06/08/21 04:25 Large Platelets Not Reportable 06/08/21 04:25 Giant Platelets Not Reportable 06/08/21 04:25 Platelet Satelliting Not Reportable 06/08/21 04:25 Plt Morphology Comment Not Reportable 06/08/21 04:25 RBC Morphology Not Reportable 06/08/21 04:25 Dimorphic RBCs Not Reportable 06/08/21 04:25 Polychromasia Not Reportable 06/08/21 04:25 Hypochromasia Not Reportable 06/08/21 04:25 Poikilocytosis Not Reportable 06/08/21 04:25 Anisocytosis Not Reportable 06/08/21 04:25 Microcytosis Not Reportable 06/08/21 04:25 Macrocytosis Not Reportable 06/08/21 04:25 Spherocytes Not Reportable 06/08/21 04:25 Pappenheimer Bodies Not Reportable 06/08/21 04:25 Sickle Cells Not Reportable 06/08/21 04:25 Target Cells Not Reportable 06/08/21 04:25 Tear Drop Cells Not Reportable 06/08/21 04:25 Ovalocytes Not Reportable 06/08/21 04:25 Helmet Cells Not Reportable 06/08/21 04:25 Toribio-Breaks Bodies Not Reportable 06/08/21 04:25 [place] Rings Not Reportable 06/08/21 04:25 [place] Cells Not Reportable 06/08/21 04:25 Bite Cells Not Reportable 06/08/21 04:25 Crenated Cell Not Reportable 06/08/21 04:25 Elliptocytes Not Reportable 06/08/21 04:25 Acanthocytes (Spur) Not Reportable 06/08/21 04:25 Rouleaux Not Reportable 06/08/21 04:25 Hemoglobin C Crystals Not Reportable 06/08/21 04:25 Schistocytes Not Reportable 06/08/21 04:25 Malaria parasites Not Reportable 06/08/21 04:25 Shravan Bodies Not Reportable 06/08/21 04:25 Hem Pathologist Commnt No 06/08/21 04:25 PT 14.6 Sec. (12.2-14.9) 06/09/21 05:20 INR 1.09 (0.87-1.13) 06/09/21 05:20 APTT 25.4 Sec. (24.2-36.6) 06/13/21 10:44 D-Dimer > 98629 ng/mlDDU (0-234) H 05/25/21 09:21 Heparin Anti-Xa Level 0.47 U.I./ml (0.3-0.7) 06/16/21 04:31 ABG pH 7.471 (7.320-7.450) H 06/15/21 10:19 POC ABG pCO2 40.4 mmHg (32.0-48.0) 06/15/21 10:19 ABG pCO2 30.3 mm Hg 05/29/21 05:28 POC ABG pO2 90.1 mmHg (83-108) 06/15/21 10:19 ABG pO2 96.2 mm Hg (80.0-90.0) H 05/29/21 05:28 POC ABG HCO3 28.8 06/15/21 10:19 ABG HCO3 24.0 mmol/L (20.0-26.0) 05/29/21 05:28 ABG O2 Saturation 97.4 (0-100) 06/15/21 10:19 ABG O2 Content 10.3 (0.0-44) 05/29/21 05:28 POC ABG Base Excess 4.8 06/15/21 10:19 ABG Base Excess 1.2 mmol/L (-2.0-3.0) 05/29/21 05:28 ABG Hemoglobin 8.6 (12.0-17.5) L 06/13/21 11:07 ABG Oxyhemoglobin 96.0 (94-98) 06/15/21 10:19 ABG Carboxyhemoglobin 1.6 % (0.0-5.0) 05/29/21 05:28 ABG Methemoglobin 0.3 (0.0-1.5) 06/13/21 11:07 ABG Sodium 144.0 mmol/L (136.0-145.0) 06/13/21 11:07 ABG Potassium 4.7 mmol/L (3.40-4.50) H 06/13/21 11:07 ABG Chloride 107.0 mmol/L (98-107) 06/13/21 11:07 ABG Glucose 277 mg/dL (65-95) H 06/13/21 11:07 Oxyhemoglobin 96.0 % (95.0-99.0) 05/29/21 05:28 Carboxyhemoglobin 1.5 (0.5-1.5) 06/15/21 10:19 FiO2 30 % 05/29/21 05:28 FiO2 % 40 06/15/21 10:19 Sodium 145 mmol/L (137-145) 06/16/21 04:31 Potassium 4.1 mmol/L (3.6-5.0) 06/16/21 04:31 Chloride 103.9 mmol/L (98-107) 06/16/21 04:31 Carbon Dioxide 27 mmol/L (22-30) 06/16/21 04:31 Anion Gap 18 mmol/L 06/16/21 04:31 BUN 49 mg/dL (7-17) H 06/16/21 04:31 Creatinine 1.3 mg/dL (0.6-1.2) H 06/16/21 04:31 Estimated GFR 49 ml/min 06/16/21 04:31 BUN/Creatinine Ratio 38 % 06/16/21 04:31 Glucose 194 mg/dL (65-100) H 06/16/21 04:31 POC Glucose 184 mg/dL (70-105) H 06/16/21 05:48 Lactic Acid 2.30 mmol/L (0.7-2.0) H* 05/26/21 05:49 Calcium 8.6 mg/dL (8.4-10.2) 06/16/21 04:31 Phosphorus 5.40 mg/dL (2.5-4.5) H 06/16/21 04:31 Magnesium 2.90 mg/dL (1.7-2.3) H 06/16/21 04:31 Ferritin 321.6 ng/mL (10.0-200.0) H 05/25/21 09:21 Total Bilirubin 0.50 mg/dL (0.1-1.2) 06/13/21 04:34 Direct Bilirubin < 0.2 mg/dL (0-0.2) 05/25/21 09:21 Indirect Bilirubin 0.2 mg/dL 05/25/21 09:21 AST 69 units/L (5-40) H 06/13/21 04:34 ALT 74 units/L (7-56) H 06/13/21 04:34 Alkaline Phosphatase 197 units/L (35-129) H 06/13/21 04:34 Lactate Dehydrogenase 445 units/L (91-180) H 05/25/21 09:21 Troponin T 0.226 ng/mL (0.00-0.029) H* D 05/25/21 15:19 C-Reactive Protein 28.90 mg/dL (0.00-1.30) H 06/07/21 14:52 NT-Pro-B Natriuret Pep 173.2 pg/mL (0-900) 05/25/21 09: Total Protein 7.5 g/dL (6.3-8.2) 06/13/21 04:34 Albumin 3.0 g/dL (3.9-5) L 06/13/21 04:34 Albumin/Globulin Ratio 0.7 % 06/13/21 04:34 Triglycerides 124 mg/dL (2-149) 05/30/21 11:19 Cholesterol 198 mg/dL (50-199) 05/25/21 15:19 LDL Cholesterol Direct 80 mg/dL (50-130) 05/25/21 15:19 HDL Cholesterol 64 mg/dL (40-59) H 05/25/21 15:19 Cholesterol/HDL Ratio 3.09 % 05/25/21 15:19 Procalcitonin 0.36 ng/mL (<0.15) 06/07/21 14:52 Arterial Blood Glucose 277 mg/dL (65-95) H 06/13/21 11:07 Arterial Blood Ionized Calcium 4.6 mg/dL (4.6-5.3) 06/02/21 04:13 Urine Color Yellow (Yellow) 06/15/21 Unknown Urine Turbidity Slightly-cloudy (Clear) 06/15/21 Unknown Urine pH 6.0 (5.0-7.0) 06/15/21 Unknown Ur Specific [place] 1.013 (1.003-1.030) 06/15/21 Unknown Urine Protein <15 mg/dl mg/dL (Negative) 06/15/21 Unknown Urine Glucose (UA) Neg mg/dL (Negative) 06/15/21 Unknown Urine Ketones Neg mg/dL (Negative) 06/15/21 Unknown Urine Blood Mod (Negative) 06/15/21 Unknown Urine Nitrite Neg (Negative) 06/15/21 Unknown Ur Reducing Substances Not Reportable 06/15/21 Unknown Urine Bilirubin Neg (Negative) 06/15/21 Unknown Urine Ictotest Not Reportable 06/15/21 Unknown Urine Urobilinogen < 2.0 mg/dL (<2.0) 06/15/21 Unknown Ur Leukocyte Esterase Mod (Negative) 06/15/21 Unknown Urine WBC (Auto) 3.0 /HPF (0.0-6.0) 06/15/21 Unknown Urine RBC (Auto) 3.0 /HPF (0.0-6.0) 06/15/21 Unknown U Epithel Cells (Auto) 2.0 /HPF (0-13.0) 06/15/21 Unknown Urine Bacteria (Auto) 1+ /HPF (Negative) 06/15/21 Unknown Urine Mucus Few /HPF 06/15/21 Unknown Urine Yeast (Budding) Few /HPF 06/15/21 Unknown Urine Osmolality 430 Mosm/kg 06/15/21 Unknown Urine Creatinine 74.7 mg/dL (0.1-20.0) H 06/15/21 Unknown Urine Sodium 14 mmol/L 06/15/21 Unknown Coronavirus (PCR) Negative (Negative) 05/30/21 08:15 Blood Type O POSITIVE 06/15/21 08:00 Antibody Screen Negative 06/15/21 08:00 Microbiology: Microbiology 06/15/21 05:50 Stool Stool Occult Blood (AVRIL) - Final 06/15/21 Unknown Gatric Aspirate Gastric Occult Blood - Final 06/15/21 07:56 Peripheral/Venous Blood Culture - Preliminary Culture in Progress 06/15/21 07:56 Peripheral/Venous Blood Culture - Preliminary Culture in Progress Tan/IV: Voiding Method External Female Catheter Active Medications - Current Medications Current Medications: Generic Name Dose Route Start Last Admin Trade Name Freq PRN Reason Stop Dose Admin Acetaminophen 650 mg 05/25/21 13:48 05/28/21 04:14 Acetaminophen 325 Mg Tab PO 650 mg Q6H PRN Administration Pain MILD(1-3)/Fever >100.5/SOTOMAYOR Lipase/Protease/Amylase 1 each 05/26/21 10:00 Lipase 10,500/Protease 25,000/Amylase 43,750 (Units) Dr Cap FEEDTUBE PRN PRN For Clogged Feeding Tube Bisacodyl 10 mg 06/08/21 10:00 Bisacodyl 10 Mg Rect Supp DC QDAY PRN Constipation Dextrose 50 ml 05/28/21 14:28 Dextrose 50% In Water (25gm) 50 Ml Syringe IV Q30MIN PRN Hypoglycemia Protocol Docusate Sodium 100 mg 06/08/21 10:00 06/15/21 22:00 Docusate Sodium 100 Mg/10 Ml Oral Liqd PO Not Given BID ABDIRAHMAN Doxazosin Mesylate 2 mg 06/01/21 12:00 06/15/21 22:24 Doxazosin 1 Mg Tab PO 2 mg BID ABDIRAHMAN Administration Famotidine 20 mg 05/29/21 10:00 06/15/21 22:24 Famotidine 20 Mg Tab FEEDTUBE 20 mg BID ABDIRAHMAN Administration Heparin Sodium (Porcine) 2,700 unit 05/25/21 13:41 06/13/21 15:20 Heparin 10,000 Units/10 Ml Vial 40 unit/kg (2700 unit) 2,700 unit IV Administration Q6H PRN Anti-Xa Assay < 0.1 units/ml Hydralazine HCl 10 mg 06/01/21 11:43 06/07/21 17:23 Hydralazine 20 Mg/1 Ml Inj IV 10 mg Q4HR PRN Administration SBP >160 Hydralazine HCl 50 mg 06/03/21 22:00 06/16/21 06:02 Hydralazine 25 Mg Tab PO Not Given Q8HR [facility] Hydrophilic Ointment 1 applic 05/25/21 19:04 Lip Therapy Vaseline TP Q2HR PRN Dry Lips Heparin Sodium/Sodium Chloride 25,000 unit in 500 mls @ 20 mls/hr 05/25/21 15:00 06/15/21 14:16 Heparin/ 0.45% Nacl-25,000 Unit/500 Ml IV 1,050 units/hr TITRATE ABDIRAHMAN 21 mls/hr Administration Protocol 1,000 UNITS/HR Insulin Glargine 30 units 06/15/21 22:00 06/15/21 22:22 Insulin Glargine 100 Units/Ml SUB-Q 30 units QHS ABDIRAHMAN Administration Insulin Human Lispro 0 unit 05/29/21 12:00 06/15/21 18:03 Insulin Lispro 100 Unit/Ml SUB-Q 4 unit Q6HR ABDIRAHMAN Administration Protocol Labetalol HCl 300 mg 06/03/21 13:40 06/15/21 22:23 Labetalol 100 Mg Tab PO 300 mg BID ABDIRAHMAN Administration Levetiracetam 250 mg 06/01/21 22:00 06/15/21 22:24 Levetiracetam 500 Mg/5 Ml Oral Liqd FEEDTUBE 250 mg Q12HR ABDIRAHMAN Administration Multi-Ingred Cream/Lotion/Oil/Oint 1 applic 05/25/21 19:04 Mineral Oil/Petrolatum, White Ophth Oint 3.5 Gm OU Q4HR PRN Dry Eye(s) Polyethylene Glycol 17 gm 06/05/21 11:00 06/15/21 11:29 Polyethylene Glycol 3350 17 Gm Powder PO 17 gm QDAY ABDIRAHMAN Administration Senna/Docusate Sodium 1 tab 05/25/21 22:00 06/15/21 22:00 Sennosides/Docusate Sodium 8.6/50 Mg Tab FEEDTUBE Not Given BID ABDIRAHMAN Simple Syrup 15 ml 05/26/21 10:00 Simple Syrup 15 Ml FEEDTUBE PRN PRN Hypoglycemia Simple Syrup 30 ml 05/26/21 10:00 Simple Syrup 15 Ml FEEDTUBE PRN PRN Hypoglycemia Sodium Bicarbonate 325 mg 05/26/21 10:00 Sodium Bicarbonate 325 Mg Tab FEEDTUBE PRN PRN For Clogged Feeding Tube Sodium Chloride 10 ml 05/25/21 22:00 06/15/21 11:32 Sodium Chloride 0.9% 10 Ml Flush Syringe IV 10 ml BID ABDIRAHMAN Administration Sodium Chloride 10 ml 05/25/21 13:48 06/04/21 03:57 Sodium Chloride 0.9% 10 Ml Flush Syringe IV 10 ml PRN PRN Administration LINE FLUSH Valsartan 160 mg 06/11/21 10:00 06/15/21 22:23 Valsartan 160mg Tab PO 160 mg BID ABDIRAHMAN Administration Nutrition/Malnutrition Assess - Dietary Evaluation Nutrition/Malnutrition Findings: Nutrition Notes Start: 05/26/21 09:00 Freq: Status: Active Protocol: Document 06/13/21 10:34 GB (Rec: 06/13/21 10:47 GB [id number]) Nutrition Notes Need for Assessment generated from: MD Order Initial or Follow up Reassessment Current Diagnosis COPD,Diabetes,Sepsis, Hypertension,Respiratory Failure Other Pertinent Diagnosis cardiac arrest, seizure disorder, (10/4: Trach/PEG) Labs/Tests 06/13: Na 149, K 5.1, BUN 52, creatinine 1.6, glucose 231, AST 69, ALT 74, AlkP 197 Pertinent Medications NaCl Height 5 ft 4 in Weight 63 kg [place] Body Weight (kg) 54.54 BMI 23.8 Weight change and time frame -6.6% since admission No new weights after 06/07 Weight Status Appropriate Subjective/Other Information 06/12: Trach/PEG 06/12: TF formula changed to glucerna 1.2 r/t altered labs and now with trach/peg Last BM 06/10 Percent of energy/protein needs met: TF goal rate meets 75% or greater of estimated energy needs Burn Absent Trauma Absent GI Symptoms None Difficulty In Swallowing Food Allergy No Current % PO Other Minimum of two criteria No #1 Nutrition Diagnosis Inadequate oral intake Comments: 06/02: On vent. TF continues. 06/07: Ventilation continues, TF continues. 06/13: Trach/PEG on 06/12, change formula to glucerna 1.2 Etiology ARF As Evidenced by Signs and Symptoms pt on vent and unable to consume PO Diagnosis Progress(for reassessment Continues documentation) Is patient on ventilator? Yes Is Patient Ambulatory and/or Out of Bed No REE-([facility]-confined to bed) 1385.676 Kcal/Kg value to use for calculation 23 Approximate Energy Requirements Using 1449 kcal/Kg Calculation Used for Recommendations Kcal/kg Additional Notes Protein: (1-1.5g/kg @63kg) 63- 95g Fluid: 1 ml/kcal or per MD Nutrition Intervention Change Diet Order: Continue NPO Nutrition Support: Vital AF 1.2 at 50 ml/hr Flush 75 ml q4h 06/07: continues 06/13: Trach/PEG on 06/12, change formula to glucerna 1.2 Kcal 1,440 Protein (gm) 72 Fat (gm) 72 Fluid (mL) 966 Goal #1 Meet 75% or greater of protein and energy needs via TF 06/13: TF at goal meets 100% estimated energy needs: met, continues Goal #2 Change TF formula. Complete current vital 1.2 bottle, change to glucerna 1.2 r/t DM and related lab results Follow-Up By: 06/19/21 Additional Comments f/u: formula change to glucerna 1.2, at goal 50ml/hr, weight, labs
[2021-06-16] MEDS: VALSARTAN 160MG TAB PO SCH ×2 (10:51→22:33)
[2021-06-16] MEDS: levETIRAcetam 500 MG/5 ML ORAL LIQD FEEDTUBE SCH ×2 (10:51→22:33)
[2021-06-16] MEDS: DOXAZOSIN 1 MG TAB PO SCH ×2 (10:51→22:34)
[2021-06-16] MEDS: FAMOTIDINE 20 MG TAB FEEDTUBE SCH ×2 (10:52→22:31)
[2021-06-16] MEDS: SENNOSIDES/DOCUSATE SODIUM 8.6/50 MG TAB FEEDTUBE SCH ×2 (10:53→22:33)
[2021-06-16] MEDS: DOCUSATE SODIUM 100 MG/10 ML ORAL LIQD PO SCH ×2 (10:53→22:33)
[2021-06-16] MEDS: POLYETHYLENE GLYCOL 3350 17 GM POWDER PO SCH (10:53)
[2021-06-16] MEDS: INSULIN LISPRO 100 UNIT/ML SUB-Q SCH ×2 (12:35→19:01)
[2021-06-16] MEDS: HEPARIN/ 0.45% NACL DRIP 25,000 UNIT/500 ML BAG IV SCH (13:16)
--- NOTE | 2021-06-16 14:15 | Progress Note ---
Assessment and Plan Acute hypoxemic respiratory failure on MVS Cardiopulmonary arrest wtih ROSC Seizure disorder Sepsis Toxic metabolic encephalopathy, possible anoxia Atrial fibrillation with RVR Metabolic acidosis Bilateral lower lobe infiltrates - continue t-piece trials as tolerated (8 hours today if tolerates) - transition to oral anticoagulation (Eliquis) - resume scopolamine patch - continue care as below otherwise; - LTAC evaluation is appropriate - azotemia per nephrology team (non-oliguric) - daily SAT and SBT assessment as tolerated - continue to wean supplemental oxygen for target O2 sat's > 90% acutely - VAP bundle addressed - continue lung protective strategies - continue bronchodilators with pulmonary hygiene per RT - wean per pulmonary driven protocols otherwise - continue accuchecks with glycemic control per SSI (While critically ill target blood glucose of 140-180 mg/dL; avoid hypoglycemia) - sedation prn for target RASS 0 to -1 - avoid nephrotoxins, renally dose all medications - continue scopolamine for secretion control - continue Keppra as AED - continue to avoid benzodiazepine's, reduce the possibility of delirium - AB's per ID rec's - prn analgesia per CPOT score - Maintenance of sleep-wake cycle, avoid delirium - continue enteral nutritional support at goal rate as tolerated - G.I. & VTE prophylaxis - PT/OT/ROM exercises - continue mobility protocols for pressure ulcer prophylaxis - Monitor hemodynamics closely - continue other care per attending / other consultants - discharge planning ongoing concurrently COVID SPECIFIC INTERVENTIONS - COVID-19 PCR negative .... Re-evaluate in am & prn CONDITION: CRITICAL PROGNOSIS: GUARDED CODE STATUS: FULL CODE The high probability of a clinically significant, sudden or life-threatening deterioration of the [respiratory, cardiovascular, renal & neurologic] system(s) required my full and direct attention, intervention and personal management. The aggregate critical care time was [32] minutes without overlap. Time includes spent on; [x] Data Review and interpretation [x] Patient assessment and monitoring of vital signs [x] Documentation [x] Medication orders and management Subjective Date of service: 06/16/21 Principal diagnosis: Ac hypoxemic resp failure; Cardiac arrest; Seizures; Sepsis; AMS; A-Fib RVR Interval history: Patient is seen today for: Acute hypoxemic respiratory failure; Cardiac arrest wtih ROSC; Seizure disorder; Sepsis; AMS; A-Fib with RVR Seen and examined at bedside; 24hour events reviewed; nursing and respiratory care staff consulted; no adverse overnight events reported to me; resting in bed; rested on MVS; shooting for 8 hours on t-piece today if tolerates; secretions moderate; no emesis or overt aspiration Objective Vital Signs - 12hr 06/16/21 06/16/21 06/16/21 02:30 03:00 03:30 Temperature Pulse Rate 84 94 H 78 Pulse Rate [ From Monitor] Respiratory 21 28 H 16 Rate Blood Pressure 128/63 142/58 135/50 O2 Sat by Pulse 100 100 100 Oximetry O2 Sat by Pulse Oximetry [ Assessment] 06/16/21 06/16/21 06/16/21 04:00 04:30 05:00 Temperature 98.9 F Pulse Rate 91 H 80 75 Pulse Rate [ 97 H From Monitor] Respiratory 17 16 13 Rate Blood Pressure 141/52 141/58 144/52 O2 Sat by Pulse 100 100 100 Oximetry O2 Sat by Pulse Oximetry [ Assessment] 06/16/21 06/16/21 06/16/21 05:08 05:31 06:00 Temperature Pulse Rate 91 H 85 Pulse Rate [ From Monitor] Respiratory 33 H 23 Rate Blood Pressure 182/73 151/67 O2 Sat by Pulse 100 100 Oximetry O2 Sat by Pulse 100 Oximetry [ Assessment] 06/16/21 06/16/21 06/16/21 06:30 07:00 07:31 Temperature Pulse Rate 79 76 89 Pulse Rate [ From Monitor] Respiratory 23 21 26 H Rate Blood Pressure 149/60 149/60 183/78 O2 Sat by Pulse 100 100 100 Oximetry O2 Sat by Pulse Oximetry [ Assessment] 06/16/21 06/16/21 06/16/21 07:53 08:00 08:30 Temperature 99.1 F Pulse Rate 90 88 Pulse Rate [ From Monitor] Respiratory 33 H 27 H Rate Blood Pressure 170/63 157/66 O2 Sat by Pulse 100 100 Oximetry O2 Sat by Pulse 98 Oximetry [ Assessment] 06/16/21 06/16/21 06/16/21 08:45 09:00 09:30 Temperature Pulse Rate 85 82 Pulse Rate [ From Monitor] Respiratory 17 24 Rate Blood Pressure 168/63 173/68 O2 Sat by Pulse 98 100 100 Oximetry O2 Sat by Pulse Oximetry [ Assessment] 06/16/21 06/16/21 06/16/21 10:00 10:30 10:51 Temperature Pulse Rate 73 93 H 78 Pulse Rate [ From Monitor] Respiratory 20 31 H Rate Blood Pressure 152/60 170/63 157/82 O2 Sat by Pulse 100 100 Oximetry O2 Sat by Pulse Oximetry [ Assessment] 06/16/21 06/16/21 06/16/21 10:52 11:00 11:30 Temperature Pulse Rate 78 82 81 Pulse Rate [ From Monitor] Respiratory 25 H 25 H Rate Blood Pressure 157/82 158/66 154/69 O2 Sat by Pulse 100 100 Oximetry O2 Sat by Pulse Oximetry [ Assessment] 06/16/21 06/16/21 06/16/21 12:00 14:04 14:05 Temperature 98.2 F Pulse Rate 81 Pulse Rate [ From Monitor] Respiratory 26 H Rate Blood Pressure 151/52 O2 Sat by Pulse 100 99 Oximetry O2 Sat by Pulse 99 Oximetry [ Assessment] 06/16/21 14:06 Temperature Pulse Rate 78 Pulse Rate [ From Monitor] Respiratory Rate Blood Pressure 153/62 O2 Sat by Pulse Oximetry O2 Sat by Pulse Oximetry [ Assessment] Constitutional: no acute distress, other (elderly female with mildly increased respiratory effort at rest on MVS) Eyes: non-icteric ENT: oropharynx moist, oropharyngeal exudate pre (clear), other (+ midline tracheostomy with mild secretions) Neck: supple, no lymphadenopathy Effort: mildly labored Ascultation: Bilateral: diminished breath sounds, rhonchi (scant) Percussion: Bilateral: not dull Cardiovascular: regular rate and rhythm, other (S1,S2) Gastrointestinal: normoactive bowel sounds, soft, non-tender, non-distended (protuberant), other (+ PEG tube) Integumentary: normal Extremities: no cyanosis, pulses normal, no ischemia or petechiae, other (Right femoral CVL) Neurologic: pupils equal and round, unable to assess, other (encephalopathic) Psychiatric: other (unable to assess) CBC and BMP: 06/16/21 18:51 06/16/21 18:51 ABG, PT/INR, D-dimer: ABG ABG pH 7.471 (7.320-7.450) H 06/15/21 10:19 POC ABG pCO2 40.4 mmHg (32.0-48.0) 06/15/21 10:19 ABG pCO2 30.3 mm Hg 05/29/21 05:28 POC ABG pO2 90.1 mmHg (83-108) 06/15/21 10:19 ABG pO2 96.2 mm Hg (80.0-90.0) H 05/29/21 05:28 POC ABG HCO3 28.8 06/15/21 10:19 ABG O2 Saturation 97.4 (0-100) 06/15/21 10:19 PT/INR, D-dimer PT 14.6 Sec. (12.2-14.9) 06/09/21 05:20 INR 1.09 (0.87-1.13) 06/09/21 05:20 D-Dimer > 23206 ng/mlDDU (0-234) H 05/25/21 09:21 Abnormal lab findings: Abnormal Labs 05/25/21 05/25/21 05/25/21 09:07 09:21 09:21 WBC 17.1 H RBC Hgb Hct MCV 106 H MCH 33 H MCHC RDW 15.6 H [place] # (Auto) Seg Neutrophils % Seg Neuts % (Manual) Lymphocytes % (Manual) Monocytes % (Manual) Seg Neutrophils # Seg Neutrophils # Man 10.1 H Lymphocytes # (Manual) 5.6 H Monocytes # (Manual) PT 15.0 H APTT 44.3 H D-Dimer > 07298 H Heparin Anti-Xa Level ABG pH 7.116 L POC ABG pCO2 POC ABG pO2 ABG pO2 ABG Hemoglobin ABG Oxyhemoglobin 93.7 L ABG Sodium ABG Potassium ABG Chloride ABG Glucose 395 H Carboxyhemoglobin Sodium Potassium Chloride Carbon Dioxide BUN Creatinine Glucose POC Glucose Lactic Acid Calcium Phosphorus Magnesium Ferritin AST ALT Alkaline Phosphatase Lactate Dehydrogenase Troponin T C-Reactive Protein Total Protein Albumin HDL Cholesterol Arterial Blood Glucose 395 H Arterial Blood Ionized Calcium 4.4 L Urine WBC (Auto) Urine Creatinine 05/25/21 05/25/21 05/25/21 09:21 09:21 09:21 WBC RBC Hgb Hct MCV MCH MCHC RDW [place] # (Auto) Seg Neutrophils % Seg Neuts % (Manual) Lymphocytes % (Manual) Monocytes % (Manual) Seg Neutrophils # Seg Neutrophils # Man Lymphocytes # (Manual) Monocytes # (Manual) PT APTT D-Dimer Heparin Anti-Xa Level ABG pH POC ABG pCO2 POC ABG pO2 ABG pO2 ABG Hemoglobin ABG Oxyhemoglobin ABG Sodium ABG Potassium ABG Chloride ABG Glucose Carboxyhemoglobin Sodium Potassium Chloride Carbon Dioxide 10 L BUN Creatinine Glucose 423 H 424 H POC Glucose Lactic Acid Calcium 8.2 L Phosphorus Magnesium Ferritin 321.6 H AST 162 H ALT 119 H Alkaline Phosphatase Lactate Dehydrogenase 445 H Troponin T C-Reactive Protein Total Protein 5.6 L Albumin 3.2 L HDL Cholesterol Arterial Blood Glucose Arterial Blood Ionized Calcium Urine WBC (Auto) Urine Creatinine 05/25/21 05/25/21 05/25/21 09:35 10:42 11:12 WBC RBC Hgb Hct MCV MCH MCHC RDW [place] # (Auto) Seg Neutrophils % Seg Neuts % (Manual) Lymphocytes % (Manual) Monocytes % (Manual) Seg Neutrophils # Seg Neutrophils # Man Lymphocytes # (Manual) Monocytes # (Manual) PT APTT D-Dimer Heparin Anti-Xa Level ABG pH POC ABG pCO2 POC ABG pO2 ABG pO2 ABG Hemoglobin ABG Oxyhemoglobin ABG Sodium ABG Potassium ABG Chloride ABG Glucose Carboxyhemoglobin Sodium Potassium Chloride Carbon Dioxide BUN Creatinine Glucose POC Glucose Lactic Acid 16.70 H* 7.70 H* Calcium Phosphorus Magnesium Ferritin AST ALT Alkaline Phosphatase Lactate Dehydrogenase Troponin T C-Reactive Protein Total Protein Albumin HDL Cholesterol Arterial Blood Glucose Arterial Blood Ionized Calcium Urine WBC (Auto) 11.0 H Urine Creatinine 05/25/21 05/25/21 05/25/21 14:07 15:19 19:04 WBC RBC Hgb Hct MCV MCH MCHC RDW [place] # (Auto) Seg Neutrophils % Seg Neuts % (Manual) Lymphocytes % (Manual) Monocytes % (Manual) Seg Neutrophils # Seg Neutrophils # Man Lymphocytes # (Manual) Monocytes # (Manual) PT APTT D-Dimer Heparin Anti-Xa Level ABG pH POC ABG pCO2 POC ABG pO2 172.2 H ABG pO2 ABG Hemoglobin ABG Oxyhemoglobin 98.7 H ABG Sodium 135.7 L ABG Potassium ABG Chloride ABG Glucose 255 H Carboxyhemoglobin 0.3 L Sodium Potassium Chloride Carbon Dioxide BUN Creatinine Glucose POC Glucose Lactic Acid 3.90 H* Calcium Phosphorus Magnesium Ferritin AST ALT Alkaline Phosphatase Lactate Dehydrogenase Troponin T 0.226 H* D C-Reactive Protein Total Protein Albumin HDL Cholesterol 64 H Arterial Blood Glucose 255 H Arterial Blood Ionized Calcium 3.8 L Urine WBC (Auto) Urine Creatinine 05/25/21 05/25/21 05/26/21 21:16 21:16 04:00 WBC RBC Hgb Hct MCV MCH MCHC RDW [place] # (Auto) Seg Neutrophils % Seg Neuts % (Manual) Lymphocytes % (Manual) Monocytes % (Manual) Seg Neutrophils # Seg Neutrophils # Man Lymphocytes # (Manual) Monocytes # (Manual) PT APTT D-Dimer Heparin Anti-Xa Level 1.19 H ABG pH 7.547 H POC ABG pCO2 POC ABG pO2 ABG pO2 ABG Hemoglobin 11.9 L ABG Oxyhemoglobin ABG Sodium 133.2 L ABG Potassium 3.1 L ABG Chloride ABG Glucose 243 H Carboxyhemoglobin 0.3 L Sodium Potassium Chloride Carbon Dioxide BUN Creatinine Glucose POC Glucose Lactic Acid 2.50 H* Calcium Phosphorus Magnesium Ferritin AST ALT Alkaline Phosphatase Lactate Dehydrogenase Troponin T C-Reactive Protein Total Protein Albumin HDL Cholesterol Arterial Blood Glucose 243 H Arterial Blood Ionized Calcium Urine WBC (Auto) Urine Creatinine 05/26/21 05/26/21 05/26/21 05:49 05:49 17:33 WBC RBC Hgb Hct MCV MCH MCHC RDW [place] # (Auto) Seg Neutrophils % Seg Neuts % (Manual) Lymphocytes % (Manual) Monocytes % (Manual) Seg Neutrophils # Seg Neutrophils # Man Lymphocytes # (Manual) Monocytes # (Manual) PT APTT D-Dimer Heparin Anti-Xa Level ABG pH POC ABG pCO2 POC ABG pO2 ABG pO2 ABG Hemoglobin ABG Oxyhemoglobin ABG Sodium ABG Potassium ABG Chloride ABG Glucose Carboxyhemoglobin Sodium Potassium Chloride Carbon Dioxide BUN Creatinine Glucose 226 H POC Glucose 156 H Lactic Acid 2.30 H* Calcium 7.2 L Phosphorus Magnesium Ferritin AST 111 H ALT 97 H Alkaline Phosphatase Lactate Dehydrogenase Troponin T C-Reactive Protein Total Protein 5.4 L Albumin 3.3 L HDL Cholesterol Arterial Blood Glucose Arterial Blood Ionized Calcium Urine WBC (Auto) Urine Creatinine 05/27/21 05/27/21 05/27/21 02:11 02:11 02:11 WBC 14.3 H RBC 3.27 L Hgb Hct MCV 99 H MCH 33 H MCHC RDW 15.3 H [place] # (Auto) 1.0 H Seg Neutrophils % Seg Neuts % (Manual) Lymphocytes % (Manual) Monocytes % (Manual) Seg Neutrophils # 10.0 H Seg Neutrophils # Man Lymphocytes # (Manual) Monocytes # (Manual) PT APTT D-Dimer Heparin Anti-Xa Level 0.80 H ABG pH POC ABG pCO2 POC ABG pO2 ABG pO2 ABG Hemoglobin ABG Oxyhemoglobin ABG Sodium ABG Potassium ABG Chloride ABG Glucose Carboxyhemoglobin Sodium Potassium 2.9 L* D Chloride Carbon Dioxide 31 H BUN 6 L Creatinine Glucose 215 H POC Glucose Lactic Acid Calcium 8.1 L Phosphorus Magnesium Ferritin AST ALT Alkaline Phosphatase Lactate Dehydrogenase Troponin T C-Reactive Protein Total Protein Albumin HDL Cholesterol Arterial Blood Glucose Arterial Blood Ionized Calcium Urine WBC (Auto) Urine Creatinine 05/27/21 05/27/21 05/27/21 11:24 12:49 18:06 WBC RBC Hgb Hct MCV MCH MCHC RDW [place] # (Auto) Seg Neutrophils % Seg Neuts % (Manual) Lymphocytes % (Manual) Monocytes % (Manual) Seg Neutrophils # Seg Neutrophils # Man Lymphocytes # (Manual) Monocytes # (Manual) PT APTT D-Dimer Heparin Anti-Xa Level ABG pH POC ABG pCO2 POC ABG pO2 ABG pO2 ABG Hemoglobin ABG Oxyhemoglobin ABG Sodium ABG Potassium ABG Chloride ABG Glucose Carboxyhemoglobin Sodium Potassium Chloride Carbon Dioxide BUN Creatinine Glucose POC Glucose 151 H 165 H 137 H Lactic Acid Calcium Phosphorus Magnesium Ferritin AST ALT Alkaline Phosphatase Lactate Dehydrogenase Troponin T C-Reactive Protein Total Protein Albumin HDL Cholesterol Arterial Blood Glucose Arterial Blood Ionized Calcium Urine WBC (Auto) Urine Creatinine 05/28/21 05/28/21 05/28/21 04:00 04:00 06:02 WBC 13.5 H RBC 3.05 L Hgb Hct MCV 100 H MCH 34 H MCHC RDW [place] # (Auto) 0.9 H Seg Neutrophils % 78.2 H Seg Neuts % (Manual) Lymphocytes % (Manual) Monocytes % (Manual) Seg Neutrophils # 10.6 H Seg Neutrophils # Man Lymphocytes # (Manual) Monocytes # (Manual) PT APTT D-Dimer Heparin Anti-Xa Level ABG pH 7.507 H POC ABG pCO2 POC ABG pO2 ABG pO2 ABG Hemoglobin 10.6 L ABG Oxyhemoglobin ABG Sodium 129.4 L ABG Potassium ABG Chloride ABG Glucose 243 H Carboxyhemoglobin 0.2 L Sodium 136 L D Potassium Chloride Carbon Dioxide BUN Creatinine Glucose 215 H POC Glucose Lactic Acid Calcium Phosphorus Magnesium Ferritin AST ALT Alkaline Phosphatase Lactate Dehydrogenase Troponin T C-Reactive Protein Total Protein Albumin HDL Cholesterol Arterial Blood Glucose 243 H Arterial Blood Ionized Calcium 4.1 L Urine WBC (Auto) Urine Creatinine 05/28/21 05/28/21 05/29/21 11:27 23:02 04:30 WBC RBC Hgb 9.3 L Hct 26.7 L MCV MCH MCHC RDW [place] # (Auto) Seg Neutrophils % Seg Neuts % (Manual) Lymphocytes % (Manual) Monocytes % (Manual) Seg Neutrophils # Seg Neutrophils # Man Lymphocytes # (Manual) Monocytes # (Manual) PT APTT D-Dimer Heparin Anti-Xa Level ABG pH POC ABG pCO2 POC ABG pO2 ABG pO2 ABG Hemoglobin ABG Oxyhemoglobin ABG Sodium ABG Potassium ABG Chloride ABG Glucose Carboxyhemoglobin Sodium Potassium Chloride Carbon Dioxide BUN Creatinine Glucose POC Glucose 220 H 212 H Lactic Acid Calcium Phosphorus Magnesium Ferritin AST ALT Alkaline Phosphatase Lactate Dehydrogenase Troponin T C-Reactive Protein Total Protein Albumin HDL Cholesterol Arterial Blood Glucose Arterial Blood Ionized Calcium Urine WBC (Auto) Urine Creatinine 05/29/21 05/29/21 05/29/21 05:02 05:28 12:55 WBC RBC Hgb Hct MCV MCH MCHC RDW [place] # (Auto) Seg Neutrophils % Seg Neuts % (Manual) Lymphocytes % (Manual) Monocytes % (Manual) Seg Neutrophils # Seg Neutrophils # Man Lymphocytes # (Manual) Monocytes # (Manual) PT APTT D-Dimer Heparin Anti-Xa Level ABG pH 7.516 H POC ABG pCO2 POC ABG pO2 ABG pO2 96.2 H ABG Hemoglobin 7.5 L ABG Oxyhemoglobin ABG Sodium ABG Potassium ABG Chloride ABG Glucose Carboxyhemoglobin Sodium Potassium Chloride Carbon Dioxide BUN Creatinine Glucose POC Glucose 197 H 251 H Lactic Acid Calcium Phosphorus Magnesium Ferritin AST ALT Alkaline Phosphatase Lactate Dehydrogenase Troponin T C-Reactive Protein Total Protein Albumin HDL Cholesterol Arterial Blood Glucose Arterial Blood Ionized Calcium Urine WBC (Auto) Urine Creatinine 05/29/21 05/29/21 05/30/21 18:23 23:31 04:10 WBC RBC Hgb Hct MCV MCH MCHC RDW [place] # (Auto) Seg Neutrophils % Seg Neuts % (Manual) Lymphocytes % (Manual) Monocytes % (Manual) Seg Neutrophils # Seg Neutrophils # Man Lymphocytes # (Manual) Monocytes # (Manual) PT APTT D-Dimer Heparin Anti-Xa Level ABG pH 7.532 H POC ABG pCO2 30.0 L POC ABG pO2 78.5 L ABG pO2 ABG Hemoglobin 11.3 L ABG Oxyhemoglobin ABG Sodium 126.7 L ABG Potassium ABG Chloride 94.0 L ABG Glucose 270 H Carboxyhemoglobin 0.4 L Sodium Potassium Chloride Carbon Dioxide BUN Creatinine Glucose POC Glucose 236 H 252 H Lactic Acid Calcium Phosphorus Magnesium Ferritin AST ALT Alkaline Phosphatase Lactate Dehydrogenase Troponin T C-Reactive Protein Total Protein Albumin HDL Cholesterol Arterial Blood Glucose 270 H Arterial Blood Ionized Calcium 4.4 L Urine WBC (Auto) Urine Creatinine 05/30/21 05/30/21 05/30/21 05:06 06:23 11:15 WBC RBC Hgb Hct MCV MCH MCHC RDW [place] # (Auto) Seg Neutrophils % Seg Neuts % (Manual) Lymphocytes % (Manual) Monocytes % (Manual) Seg Neutrophils # Seg Neutrophils # Man Lymphocytes # (Manual) Monocytes # (Manual) PT APTT D-Dimer Heparin Anti-Xa Level ABG pH POC ABG pCO2 POC ABG pO2 ABG pO2 ABG Hemoglobin ABG Oxyhemoglobin ABG Sodium ABG Potassium ABG Chloride ABG Glucose Carboxyhemoglobin Sodium 126 L D Potassium Chloride 91.9 L Carbon Dioxide 20 L D BUN Creatinine 0.4 L Glucose 274 H POC Glucose 242 H 346 H Lactic Acid Calcium Phosphorus Magnesium Ferritin AST ALT Alkaline Phosphatase Lactate Dehydrogenase Troponin T C-Reactive Protein Total Protein Albumin HDL Cholesterol Arterial Blood Glucose Arterial Blood Ionized Calcium Urine WBC (Auto) Urine Creatinine 05/30/21 05/30/21 05/30/21 11:19 11:19 11:19 WBC 18.9 H RBC 3.36 L Hgb Hct MCV 102 H MCH 33 H MCHC RDW 15.5 H [place] # (Auto) Seg Neutrophils % Seg Neuts % (Manual) Lymphocytes % (Manual) Monocytes % (Manual) Seg Neutrophils # Seg Neutrophils # Man Lymphocytes # (Manual) Monocytes # (Manual) PT APTT D-Dimer Heparin Anti-Xa Level < 0.10 L ABG pH POC ABG pCO2 POC ABG pO2 ABG pO2 ABG Hemoglobin ABG Oxyhemoglobin ABG Sodium ABG Potassium ABG Chloride ABG Glucose Carboxyhemoglobin Sodium 124 L Potassium Chloride Carbon Dioxide BUN Creatinine Glucose POC Glucose Lactic Acid Calcium Phosphorus Magnesium Ferritin AST ALT Alkaline Phosphatase Lactate Dehydrogenase Troponin T C-Reactive Protein Total Protein Albumin HDL Cholesterol Arterial Blood Glucose Arterial Blood Ionized Calcium Urine WBC (Auto) Urine Creatinine 05/30/21 05/30/21 05/31/21 17:02 23:27 03:37 WBC RBC Hgb Hct MCV MCH MCHC RDW [place] # (Auto) Seg Neutrophils % Seg Neuts % (Manual) Lymphocytes % (Manual) Monocytes % (Manual) Seg Neutrophils # Seg Neutrophils # Man Lymphocytes # (Manual) Monocytes # (Manual) PT APTT D-Dimer Heparin Anti-Xa Level ABG pH POC ABG pCO2 POC ABG pO2 ABG pO2 ABG Hemoglobin 11.6 L ABG Oxyhemoglobin ABG Sodium 130.0 L ABG Potassium ABG Chloride 95.0 L ABG Glucose 292 H Carboxyhemoglobin Sodium Potassium Chloride Carbon Dioxide BUN Creatinine Glucose POC Glucose 270 H 237 H Lactic Acid Calcium Phosphorus Magnesium Ferritin AST ALT Alkaline Phosphatase Lactate Dehydrogenase Troponin T C-Reactive Protein Total Protein Albumin HDL Cholesterol Arterial Blood Glucose 292 H Arterial Blood Ionized Calcium Urine WBC (Auto) Urine Creatinine 05/31/21 05/31/21 05/31/21 04:00 04:00 05:20 WBC 20.9 H RBC 3.13 L Hgb Hct MCV 99 H MCH 34 H MCHC RDW [place] # (Auto) Seg Neutrophils % Seg Neuts % (Manual) 81.0 H Lymphocytes % (Manual) 8.0 L Monocytes % (Manual) 9.0 H Seg Neutrophils # Seg Neutrophils # Man 16.9 H Lymphocytes # (Manual) Monocytes # (Manual) 1.9 H PT APTT D-Dimer Heparin Anti-Xa Level ABG pH POC ABG pCO2 POC ABG pO2 ABG pO2 ABG Hemoglobin ABG Oxyhemoglobin ABG Sodium ABG Potassium ABG Chloride ABG Glucose Carboxyhemoglobin Sodium 133 L D Potassium Chloride 95.4 L Carbon Dioxide 21 L BUN 30 H Creatinine 0.5 L Glucose 305 H POC Glucose 269 H Lactic Acid Calcium Phosphorus Magnesium Ferritin AST ALT Alkaline Phosphatase Lactate Dehydrogenase Troponin T C-Reactive Protein Total Protein Albumin HDL Cholesterol Arterial Blood Glucose Arterial Blood Ionized Calcium Urine WBC (Auto) Urine Creatinine 05/31/21 05/31/21 05/31/21 11:40 18:16 23:25 WBC RBC Hgb Hct MCV MCH MCHC RDW [place] # (Auto) Seg Neutrophils % Seg Neuts % (Manual) Lymphocytes % (Manual) Monocytes % (Manual) Seg Neutrophils # Seg Neutrophils # Man Lymphocytes # (Manual) Monocytes # (Manual) PT APTT D-Dimer Heparin Anti-Xa Level ABG pH POC ABG pCO2 POC ABG pO2 ABG pO2 ABG Hemoglobin ABG Oxyhemoglobin ABG Sodium ABG Potassium ABG Chloride ABG Glucose Carboxyhemoglobin Sodium Potassium Chloride Carbon Dioxide BUN Creatinine Glucose POC Glucose 364 H 250 H 231 H Lactic Acid Calcium Phosphorus Magnesium Ferritin AST ALT Alkaline Phosphatase Lactate Dehydrogenase Troponin T C-Reactive Protein Total Protein Albumin HDL Cholesterol Arterial Blood Glucose Arterial Blood Ionized Calcium Urine WBC (Auto) Urine Creatinine 06/01/21 06/01/21 06/01/21 04:03 04:58 04:58 WBC 20.7 H RBC 3.20 L Hgb Hct MCV 99 H MCH 34 H MCHC RDW [place] # (Auto) Seg Neutrophils % Seg Neuts % (Manual) 82.0 H Lymphocytes % (Manual) 9.0 L Monocytes % (Manual) Seg Neutrophils # Seg Neutrophils # Man 17.0 H Lymphocytes # (Manual) Monocytes # (Manual) 1.4 H PT APTT D-Dimer Heparin Anti-Xa Level 1.18 H ABG pH 7.520 H POC ABG pCO2 POC ABG pO2 66.0 L ABG pO2 ABG Hemoglobin ABG Oxyhemoglobin 92.5 L ABG Sodium 133.6 L ABG Potassium ABG Chloride ABG Glucose 250 H Carboxyhemoglobin Sodium Potassium Chloride Carbon Dioxide BUN Creatinine Glucose POC Glucose Lactic Acid Calcium Phosphorus Magnesium Ferritin AST ALT Alkaline Phosphatase Lactate Dehydrogenase Troponin T C-Reactive Protein Total Protein Albumin HDL Cholesterol Arterial Blood Glucose 250 H Arterial Blood Ionized Calcium 4.4 L Urine WBC (Auto) Urine Creatinine 06/01/21 06/01/21 06/01/21 04:58 05:29 11:39 WBC RBC Hgb Hct MCV MCH MCHC RDW [place] # (Auto) Seg Neutrophils % Seg Neuts % (Manual) Lymphocytes % (Manual) Monocytes % (Manual) Seg Neutrophils # Seg Neutrophils # Man Lymphocytes # (Manual) Monocytes # (Manual) PT APTT D-Dimer Heparin Anti-Xa Level ABG pH POC ABG pCO2 POC ABG pO2 ABG pO2 ABG Hemoglobin ABG Oxyhemoglobin ABG Sodium ABG Potassium ABG Chloride ABG Glucose Carboxyhemoglobin Sodium 131 L Potassium Chloride 95.7 L Carbon Dioxide BUN 30 H Creatinine 0.5 L Glucose 241 H POC Glucose 215 H 299 H Lactic Acid Calcium Phosphorus Magnesium Ferritin AST ALT Alkaline Phosphatase Lactate Dehydrogenase Troponin T C-Reactive Protein Total Protein Albumin HDL Cholesterol Arterial Blood Glucose Arterial Blood Ionized Calcium Urine WBC (Auto) Urine Creatinine 06/01/21 06/02/21 06/02/21 18:14 00:12 02:25 WBC 17.4 H RBC 3.09 L Hgb Hct MCV 101 H MCH 34 H MCHC RDW 15.5 H [place] # (Auto) Seg Neutrophils % Seg Neuts % (Manual) Lymphocytes % (Manual) Monocytes % (Manual) Seg Neutrophils # Seg Neutrophils # Man Lymphocytes # (Manual) Monocytes # (Manual) PT APTT D-Dimer Heparin Anti-Xa Level ABG pH POC ABG pCO2 POC ABG pO2 ABG pO2 ABG Hemoglobin ABG Oxyhemoglobin ABG Sodium ABG Potassium ABG Chloride ABG Glucose Carboxyhemoglobin Sodium Potassium Chloride Carbon Dioxide BUN Creatinine Glucose POC Glucose 215 H 175 H Lactic Acid Calcium Phosphorus Magnesium Ferritin AST ALT Alkaline Phosphatase Lactate Dehydrogenase Troponin T C-Reactive Protein Total Protein Albumin HDL Cholesterol Arterial Blood Glucose Arterial Blood Ionized Calcium Urine WBC (Auto) Urine Creatinine 06/02/21 06/02/21 06/02/21 02:25 04:13 04:58 WBC RBC Hgb Hct MCV MCH MCHC RDW [place] # (Auto) Seg Neutrophils % Seg Neuts % (Manual) Lymphocytes % (Manual) Monocytes % (Manual) Seg Neutrophils # Seg Neutrophils # Man Lymphocytes # (Manual) Monocytes # (Manual) PT APTT D-Dimer Heparin Anti-Xa Level ABG pH 7.481 H POC ABG pCO2 POC ABG pO2 80.0 L ABG pO2 ABG Hemoglobin 11.1 L ABG Oxyhemoglobin ABG Sodium 131.9 L ABG Potassium ABG Chloride ABG Glucose 231 H Carboxyhemoglobin 0.2 L Sodium 134 L Potassium Chloride 95.8 L Carbon Dioxide BUN 31 H Creatinine 0.5 L Glucose 168 H POC Glucose 230 H Lactic Acid Calcium Phosphorus Magnesium Ferritin AST ALT Alkaline Phosphatase Lactate Dehydrogenase Troponin T C-Reactive Protein Total Protein Albumin HDL Cholesterol Arterial Blood Glucose 231 H Arterial Blood Ionized Calcium Urine WBC (Auto) Urine Creatinine 06/02/21 06/02/21 06/02/21 11:27 17:47 23:53 WBC RBC Hgb Hct MCV MCH MCHC RDW [place] # (Auto) Seg Neutrophils % Seg Neuts % (Manual) Lymphocytes % (Manual) Monocytes % (Manual) Seg Neutrophils # Seg Neutrophils # Man Lymphocytes # (Manual) Monocytes # (Manual) PT APTT D-Dimer Heparin Anti-Xa Level 0.80 H ABG pH POC ABG pCO2 POC ABG pO2 ABG pO2 ABG Hemoglobin ABG Oxyhemoglobin ABG Sodium ABG Potassium ABG Chloride ABG Glucose Carboxyhemoglobin Sodium Potassium Chloride Carbon Dioxide BUN Creatinine Glucose POC Glucose 259 H 297 H Lactic Acid Calcium Phosphorus Magnesium Ferritin AST ALT Alkaline Phosphatase Lactate Dehydrogenase Troponin T C-Reactive Protein Total Protein Albumin HDL Cholesterol Arterial Blood Glucose Arterial Blood Ionized Calcium Urine WBC (Auto) Urine Creatinine 06/03/21 06/03/21 06/03/21 00:05 05:23 09:10 WBC RBC Hgb Hct MCV MCH MCHC RDW [place] # (Auto) Seg Neutrophils % Seg Neuts % (Manual) Lymphocytes % (Manual) Monocytes % (Manual) Seg Neutrophils # Seg Neutrophils # Man Lymphocytes # (Manual) Monocytes # (Manual) PT APTT D-Dimer Heparin Anti-Xa Level 0.84 H ABG pH POC ABG pCO2 POC ABG pO2 ABG pO2 ABG Hemoglobin ABG Oxyhemoglobin ABG Sodium ABG Potassium ABG Chloride ABG Glucose Carboxyhemoglobin Sodium Potassium Chloride Carbon Dioxide BUN Creatinine Glucose POC Glucose 268 H 170 H Lactic Acid Calcium Phosphorus Magnesium Ferritin AST ALT Alkaline Phosphatase Lactate Dehydrogenase Troponin T C-Reactive Protein Total Protein Albumin HDL Cholesterol Arterial Blood Glucose Arterial Blood Ionized Calcium Urine WBC (Auto) Urine Creatinine 06/03/21 06/03/21 06/03/21 12:06 20:22 23:30 WBC RBC Hgb Hct MCV MCH MCHC RDW [place] # (Auto) Seg Neutrophils % Seg Neuts % (Manual) Lymphocytes % (Manual) Monocytes % (Manual) Seg Neutrophils # Seg Neutrophils # Man Lymphocytes # (Manual) Monocytes # (Manual) PT APTT D-Dimer Heparin Anti-Xa Level ABG pH POC ABG pCO2 POC ABG pO2 ABG pO2 ABG Hemoglobin ABG Oxyhemoglobin ABG Sodium ABG Potassium ABG Chloride ABG Glucose Carboxyhemoglobin Sodium Potassium Chloride Carbon Dioxide BUN Creatinine Glucose POC Glucose 275 H 260 H 215 H Lactic Acid Calcium Phosphorus Magnesium Ferritin AST ALT Alkaline Phosphatase Lactate Dehydrogenase Troponin T C-Reactive Protein Total Protein Albumin HDL Cholesterol Arterial Blood Glucose Arterial Blood Ionized Calcium Urine WBC (Auto) Urine Creatinine 06/04/21 06/04/21 06/04/21 05:03 05:57 05:57 WBC 17.8 H RBC 2.83 L Hgb 9.6 L Hct 28.4 L MCV 100 H MCH 34 H MCHC RDW 15.5 H [place] # (Auto) Seg Neutrophils % Seg Neuts % (Manual) 83.0 H Lymphocytes % (Manual) 4.0 L Monocytes % (Manual) Seg Neutrophils # Seg Neutrophils # Man 14.8 H Lymphocytes # (Manual) 0.7 L Monocytes # (Manual) 1.1 H PT APTT D-Dimer Heparin Anti-Xa Level ABG pH POC ABG pCO2 POC ABG pO2 ABG pO2 ABG Hemoglobin ABG Oxyhemoglobin ABG Sodium ABG Potassium ABG Chloride ABG Glucose Carboxyhemoglobin Sodium 135 L Potassium Chloride 96.3 L Carbon Dioxide BUN 51 H Creatinine Glucose 275 H POC Glucose 257 H Lactic Acid Calcium Phosphorus Magnesium Ferritin AST ALT Alkaline Phosphatase Lactate Dehydrogenase Troponin T C-Reactive Protein Total Protein Albumin HDL Cholesterol Arterial Blood Glucose Arterial Blood Ionized Calcium Urine WBC (Auto) Urine Creatinine 06/04/21 06/04/21 06/04/21 09:48 11:08 17:33 WBC RBC Hgb Hct MCV MCH MCHC RDW [place] # (Auto) Seg Neutrophils % Seg Neuts % (Manual) Lymphocytes % (Manual) Monocytes % (Manual) Seg Neutrophils # Seg Neutrophils # Man Lymphocytes # (Manual) Monocytes # (Manual) PT APTT D-Dimer Heparin Anti-Xa Level ABG pH POC ABG pCO2 POC ABG pO2 ABG pO2 ABG Hemoglobin ABG Oxyhemoglobin ABG Sodium ABG Potassium ABG Chloride ABG Glucose Carboxyhemoglobin Sodium Potassium Chloride Carbon Dioxide BUN Creatinine Glucose POC Glucose 198 H 234 H 247 H Lactic Acid Calcium Phosphorus Magnesium Ferritin AST ALT Alkaline Phosphatase Lactate Dehydrogenase Troponin T C-Reactive Protein Total Protein Albumin HDL Cholesterol Arterial Blood Glucose Arterial Blood Ionized Calcium Urine WBC (Auto) Urine Creatinine 06/04/21 06/05/21 06/05/21 23:30 05:38 11:24 WBC RBC Hgb Hct MCV MCH MCHC RDW [place] # (Auto) Seg Neutrophils % Seg Neuts % (Manual) Lymphocytes % (Manual) Monocytes % (Manual) Seg Neutrophils # Seg Neutrophils # Man Lymphocytes # (Manual) Monocytes # (Manual) PT APTT D-Dimer Heparin Anti-Xa Level ABG pH POC ABG pCO2 POC ABG pO2 ABG pO2 ABG Hemoglobin ABG Oxyhemoglobin ABG Sodium ABG Potassium ABG Chloride ABG Glucose Carboxyhemoglobin Sodium Potassium Chloride Carbon Dioxide BUN Creatinine Glucose POC Glucose 192 H 192 H 287 H Lactic Acid Calcium Phosphorus Magnesium Ferritin AST ALT Alkaline Phosphatase Lactate Dehydrogenase Troponin T C-Reactive Protein Total Protein Albumin HDL Cholesterol Arterial Blood Glucose Arterial Blood Ionized Calcium Urine WBC (Auto) Urine Creatinine 06/05/21 06/05/21 06/05/21 12:20 12:20 12:20 WBC 16.2 H RBC 2.56 L Hgb 8.8 L Hct 25.2 L MCV 98 H MCH 35 H MCHC 35 H RDW 15.3 H [place] # (Auto) Seg Neutrophils % Seg Neuts % (Manual) Lymphocytes % (Manual) Monocytes % (Manual) Seg Neutrophils # Seg Neutrophils # Man Lymphocytes # (Manual) Monocytes # (Manual) PT APTT 72.2 H* D-Dimer Heparin Anti-Xa Level ABG pH POC ABG pCO2 POC ABG pO2 ABG pO2 ABG Hemoglobin ABG Oxyhemoglobin ABG Sodium ABG Potassium ABG Chloride ABG Glucose Carboxyhemoglobin Sodium 133 L Potassium Chloride 95.3 L Carbon Dioxide BUN 57 H Creatinine Glucose 313 H POC Glucose Lactic Acid Calcium Phosphorus Magnesium Ferritin AST 90 H ALT 79 H Alkaline Phosphatase 262 H Lactate Dehydrogenase Troponin T C-Reactive Protein Total Protein Albumin 2.7 L HDL Cholesterol Arterial Blood Glucose Arterial Blood Ionized Calcium Urine WBC (Auto) Urine Creatinine 06/05/21 06/05/21 06/05/21 17:50 22:57 23:36 WBC RBC Hgb Hct MCV MCH MCHC RDW [place] # (Auto) Seg Neutrophils % Seg Neuts % (Manual) Lymphocytes % (Manual) Monocytes % (Manual) Seg Neutrophils # Seg Neutrophils # Man Lymphocytes # (Manual) Monocytes # (Manual) PT APTT D-Dimer Heparin Anti-Xa Level 0.28 L ABG pH POC ABG pCO2 POC ABG pO2 ABG pO2 ABG Hemoglobin ABG Oxyhemoglobin ABG Sodium ABG Potassium ABG Chloride ABG Glucose Carboxyhemoglobin Sodium Potassium Chloride Carbon Dioxide BUN Creatinine Glucose POC Glucose 275 H 223 H Lactic Acid Calcium Phosphorus Magnesium Ferritin AST ALT Alkaline Phosphatase Lactate Dehydrogenase Troponin T C-Reactive Protein Total Protein Albumin HDL Cholesterol Arterial Blood Glucose Arterial Blood Ionized Calcium Urine WBC (Auto) Urine Creatinine 06/06/21 06/06/21 06/06/21 04:57 04:57 05:02 WBC 15.7 H RBC 2.77 L Hgb 9.4 L Hct 27.2 L MCV 98 H MCH 34 H MCHC RDW 15.4 H [place] # (Auto) Seg Neutrophils % Seg Neuts % (Manual) Lymphocytes % (Manual) Monocytes % (Manual) Seg Neutrophils # Seg Neutrophils # Man Lymphocytes # (Manual) Monocytes # (Manual) PT APTT D-Dimer Heparin Anti-Xa Level ABG pH POC ABG pCO2 POC ABG pO2 ABG pO2 ABG Hemoglobin ABG Oxyhemoglobin ABG Sodium ABG Potassium ABG Chloride ABG Glucose Carboxyhemoglobin Sodium Potassium 5.7 H Chloride Carbon Dioxide BUN 57 H Creatinine Glucose 245 H POC Glucose 217 H Lactic Acid Calcium Phosphorus Magnesium Ferritin AST 99 H ALT 136 H Alkaline Phosphatase 312 H Lactate Dehydrogenase Troponin T C-Reactive Protein Total Protein 6.1 L Albumin 3.1 L HDL Cholesterol Arterial Blood Glucose Arterial Blood Ionized Calcium Urine WBC (Auto) Urine Creatinine 06/06/21 06/06/21 06/06/21 11:37 17:34 18:09 WBC RBC Hgb Hct MCV MCH MCHC RDW [place] # (Auto) Seg Neutrophils % Seg Neuts % (Manual) Lymphocytes % (Manual) Monocytes % (Manual) Seg Neutrophils # Seg Neutrophils # Man Lymphocytes # (Manual) Monocytes # (Manual) PT APTT D-Dimer Heparin Anti-Xa Level ABG pH POC ABG pCO2 POC ABG pO2 ABG pO2 ABG Hemoglobin ABG Oxyhemoglobin ABG Sodium ABG Potassium ABG Chloride ABG Glucose Carboxyhemoglobin Sodium Potassium 5.2 H Chloride Carbon Dioxide BUN 48 H Creatinine Glucose 245 H POC Glucose 251 H 217 H Lactic Acid Calcium Phosphorus Magnesium Ferritin AST ALT Alkaline Phosphatase Lactate Dehydrogenase Troponin T C-Reactive Protein Total Protein Albumin HDL Cholesterol Arterial Blood Glucose Arterial Blood Ionized Calcium Urine WBC (Auto) Urine Creatinine 06/06/21 06/07/21 06/07/21 23:53 04:45 04:45 WBC 21.5 H RBC 2.71 L Hgb 9.0 L Hct 26.9 L MCV 99 H MCH 33 H MCHC RDW 15.3 H [place] # (Auto) Seg Neutrophils % Seg Neuts % (Manual) Lymphocytes % (Manual) Monocytes % (Manual) Seg Neutrophils # Seg Neutrophils # Man Lymphocytes # (Manual) Monocytes # (Manual) PT APTT D-Dimer Heparin Anti-Xa Level 0.10 L ABG pH POC ABG pCO2 POC ABG pO2 ABG pO2 ABG Hemoglobin ABG Oxyhemoglobin ABG Sodium ABG Potassium ABG Chloride ABG Glucose Carboxyhemoglobin Sodium Potassium Chloride Carbon Dioxide BUN Creatinine Glucose POC Glucose 224 H Lactic Acid Calcium Phosphorus Magnesium Ferritin AST ALT Alkaline Phosphatase Lactate Dehydrogenase Troponin T C-Reactive Protein Total Protein Albumin HDL Cholesterol Arterial Blood Glucose Arterial Blood Ionized Calcium Urine WBC (Auto) Urine Creatinine 06/07/21 06/07/21 06/07/21 04:45 05:11 11:50 WBC RBC Hgb Hct MCV MCH MCHC RDW [place] # (Auto) Seg Neutrophils % Seg Neuts % (Manual) Lymphocytes % (Manual) Monocytes % (Manual) Seg Neutrophils # Seg Neutrophils # Man Lymphocytes # (Manual) Monocytes # (Manual) PT APTT D-Dimer Heparin Anti-Xa Level ABG pH POC ABG pCO2 POC ABG pO2 ABG pO2 ABG Hemoglobin ABG Oxyhemoglobin ABG Sodium ABG Potassium ABG Chloride ABG Glucose Carboxyhemoglobin Sodium Potassium 5.4 H Chloride Carbon Dioxide BUN 55 H Creatinine Glucose 178 H POC Glucose 156 H 118 H Lactic Acid Calcium Phosphorus Magnesium Ferritin AST ALT Alkaline Phosphatase Lactate Dehydrogenase Troponin T C-Reactive Protein Total Protein Albumin HDL Cholesterol Arterial Blood Glucose Arterial Blood Ionized Calcium Urine WBC (Auto) Urine Creatinine 06/07/21 06/07/21 06/07/21 14:52 17:45 20:43 WBC RBC Hgb Hct MCV MCH MCHC RDW [place] # (Auto) Seg Neutrophils % Seg Neuts % (Manual) Lymphocytes % (Manual) Monocytes % (Manual) Seg Neutrophils # Seg Neutrophils # Man Lymphocytes # (Manual) Monocytes # (Manual) PT APTT D-Dimer Heparin Anti-Xa Level 0.73 H ABG pH POC ABG pCO2 POC ABG pO2 ABG pO2 ABG Hemoglobin ABG Oxyhemoglobin ABG Sodium ABG Potassium ABG Chloride ABG Glucose Carboxyhemoglobin Sodium Potassium Chloride Carbon Dioxide BUN Creatinine Glucose POC Glucose 164 H Lactic Acid Calcium Phosphorus Magnesium Ferritin AST ALT Alkaline Phosphatase Lactate Dehydrogenase Troponin T C-Reactive Protein 28.90 H Total Protein Albumin HDL Cholesterol Arterial Blood Glucose Arterial Blood Ionized Calcium Urine WBC (Auto) Urine Creatinine 06/07/21 06/08/21 06/08/21 23:15 04:25 04:25 WBC 15.8 H RBC 2.58 L Hgb 8.6 L Hct 25.7 L MCV 100 H MCH 33 H MCHC RDW [place] # (Auto) Seg Neutrophils % Seg Neuts % (Manual) 76.0 H Lymphocytes % (Manual) 6.0 L Monocytes % (Manual) 8.0 H Seg Neutrophils # Seg Neutrophils # Man 12.0 H Lymphocytes # (Manual) 0.9 L Monocytes # (Manual) 1.3 H PT APTT D-Dimer Heparin Anti-Xa Level ABG pH POC ABG pCO2 POC ABG pO2 ABG pO2 ABG Hemoglobin ABG Oxyhemoglobin ABG Sodium ABG Potassium ABG Chloride ABG Glucose Carboxyhemoglobin Sodium Potassium Chloride Carbon Dioxide BUN 65 H Creatinine Glucose 205 H POC Glucose 236 H Lactic Acid Calcium Phosphorus Magnesium Ferritin AST ALT Alkaline Phosphatase Lactate Dehydrogenase Troponin T C-Reactive Protein Total Protein Albumin HDL Cholesterol Arterial Blood Glucose Arterial Blood Ionized Calcium Urine WBC (Auto) Urine Creatinine 06/08/21 06/08/21 06/08/21 05:36 11:18 17:41 WBC RBC Hgb Hct MCV MCH MCHC RDW [place] # (Auto) Seg Neutrophils % Seg Neuts % (Manual) Lymphocytes % (Manual) Monocytes % (Manual) Seg Neutrophils # Seg Neutrophils # Man Lymphocytes # (Manual) Monocytes # (Manual) PT APTT D-Dimer Heparin Anti-Xa Level ABG pH POC ABG pCO2 POC ABG pO2 ABG pO2 ABG Hemoglobin ABG Oxyhemoglobin ABG Sodium ABG Potassium ABG Chloride ABG Glucose Carboxyhemoglobin Sodium Potassium Chloride Carbon Dioxide BUN Creatinine Glucose POC Glucose 185 H 203 H 173 H Lactic Acid Calcium Phosphorus Magnesium Ferritin AST ALT Alkaline Phosphatase Lactate Dehydrogenase Troponin T C-Reactive Protein Total Protein Albumin HDL Cholesterol Arterial Blood Glucose Arterial Blood Ionized Calcium Urine WBC (Auto) Urine Creatinine 06/08/21 06/09/21 06/09/21 23:34 05:16 05:20 WBC 15.0 H RBC 2.54 L Hgb 8.5 L Hct 25.2 L MCV 99 H MCH 33 H MCHC RDW [place] # (Auto) Seg Neutrophils % Seg Neuts % (Manual) Lymphocytes % (Manual) Monocytes % (Manual) Seg Neutrophils # Seg Neutrophils # Man Lymphocytes # (Manual) Monocytes # (Manual) PT APTT D-Dimer Heparin Anti-Xa Level ABG pH POC ABG pCO2 POC ABG pO2 ABG pO2 ABG Hemoglobin ABG Oxyhemoglobin ABG Sodium ABG Potassium ABG Chloride ABG Glucose Carboxyhemoglobin Sodium Potassium Chloride Carbon Dioxide BUN Creatinine Glucose POC Glucose 200 H 154 H Lactic Acid Calcium Phosphorus Magnesium Ferritin AST ALT Alkaline Phosphatase Lactate Dehydrogenase Troponin T C-Reactive Protein Total Protein Albumin HDL Cholesterol Arterial Blood Glucose Arterial Blood Ionized Calcium Urine WBC (Auto) Urine Creatinine 06/09/21 06/09/21 06/09/21 05:20 11:40 17:09 WBC RBC Hgb Hct MCV MCH MCHC RDW [place] # (Auto) Seg Neutrophils % Seg Neuts % (Manual) Lymphocytes % (Manual) Monocytes % (Manual) Seg Neutrophils # Seg Neutrophils # Man Lymphocytes # (Manual) Monocytes # (Manual) PT APTT D-Dimer Heparin Anti-Xa Level ABG pH POC ABG pCO2 POC ABG pO2 ABG pO2 ABG Hemoglobin ABG Oxyhemoglobin ABG Sodium ABG Potassium ABG Chloride ABG Glucose Carboxyhemoglobin Sodium Potassium 5.2 H Chloride Carbon Dioxide BUN 69 H Creatinine Glucose 163 H POC Glucose 232 H 137 H Lactic Acid Calcium Phosphorus Magnesium Ferritin AST ALT Alkaline Phosphatase Lactate Dehydrogenase Troponin T C-Reactive Protein Total Protein Albumin HDL Cholesterol Arterial Blood Glucose Arterial Blood Ionized Calcium Urine WBC (Auto) Urine Creatinine 06/09/21 06/10/21 06/10/21 23:31 04:42 04:42 WBC 14.5 H RBC 2.41 L Hgb 8.2 L Hct 24.0 L MCV 100 H MCH 34 H MCHC RDW 15.8 H [place] # (Auto) Seg Neutrophils % Seg Neuts % (Manual) Lymphocytes % (Manual) Monocytes % (Manual) Seg Neutrophils # Seg Neutrophils # Man Lymphocytes # (Manual) Monocytes # (Manual) PT APTT D-Dimer Heparin Anti-Xa Level ABG pH POC ABG pCO2 POC ABG pO2 ABG pO2 ABG Hemoglobin ABG Oxyhemoglobin ABG Sodium ABG Potassium ABG Chloride ABG Glucose Carboxyhemoglobin Sodium 146 H D Potassium 3.4 L D Chloride Carbon Dioxide BUN 62 H Creatinine Glucose 174 H POC Glucose 162 H Lactic Acid Calcium Phosphorus Magnesium Ferritin AST ALT Alkaline Phosphatase Lactate Dehydrogenase Troponin T C-Reactive Protein Total Protein Albumin HDL Cholesterol Arterial Blood Glucose Arterial Blood Ionized Calcium Urine WBC (Auto) Urine Creatinine 06/10/21 06/10/21 06/10/21 05:36 11:43 18:24 WBC RBC Hgb Hct MCV MCH MCHC RDW [place] # (Auto) Seg Neutrophils % Seg Neuts % (Manual) Lymphocytes % (Manual) Monocytes % (Manual) Seg Neutrophils # Seg Neutrophils # Man Lymphocytes # (Manual) Monocytes # (Manual) PT APTT D-Dimer Heparin Anti-Xa Level ABG pH POC ABG pCO2 POC ABG pO2 ABG pO2 ABG Hemoglobin ABG Oxyhemoglobin ABG Sodium ABG Potassium ABG Chloride ABG Glucose Carboxyhemoglobin Sodium Potassium Chloride Carbon Dioxide BUN Creatinine Glucose POC Glucose 149 H 183 H 139 H Lactic Acid Calcium Phosphorus Magnesium Ferritin AST ALT Alkaline Phosphatase Lactate Dehydrogenase Troponin T C-Reactive Protein Total Protein Albumin HDL Cholesterol Arterial Blood Glucose Arterial Blood Ionized Calcium Urine WBC (Auto) Urine Creatinine 06/10/21 06/11/21 06/11/21 23:32 04:17 05:22 WBC RBC Hgb Hct MCV MCH MCHC RDW [place] # (Auto) Seg Neutrophils % Seg Neuts % (Manual) Lymphocytes % (Manual) Monocytes % (Manual) Seg Neutrophils # Seg Neutrophils # Man Lymphocytes # (Manual) Monocytes # (Manual) PT APTT D-Dimer Heparin Anti-Xa Level 0.84 H ABG pH POC ABG pCO2 POC ABG pO2 ABG pO2 ABG Hemoglobin ABG Oxyhemoglobin ABG Sodium ABG Potassium ABG Chloride ABG Glucose Carboxyhemoglobin Sodium Potassium Chloride Carbon Dioxide BUN Creatinine Glucose POC Glucose 149 H 138 H Lactic Acid Calcium Phosphorus Magnesium Ferritin AST ALT Alkaline Phosphatase Lactate Dehydrogenase Troponin T C-Reactive Protein Total Protein Albumin HDL Cholesterol Arterial Blood Glucose Arterial Blood Ionized Calcium Urine WBC (Auto) Urine Creatinine 06/11/21 06/11/21 06/12/21 11:26 23:56 04:44 WBC 15.5 H RBC 2.59 L Hgb 8.6 L Hct 25.8 L MCV 100 H MCH 33 H MCHC RDW 15.3 H [place] # (Auto) Seg Neutrophils % Seg Neuts % (Manual) Lymphocytes % (Manual) Monocytes % (Manual) Seg Neutrophils # Seg Neutrophils # Man Lymphocytes # (Manual) Monocytes # (Manual) PT APTT D-Dimer Heparin Anti-Xa Level ABG pH POC ABG pCO2 POC ABG pO2 ABG pO2 ABG Hemoglobin ABG Oxyhemoglobin ABG Sodium ABG Potassium ABG Chloride ABG Glucose Carboxyhemoglobin Sodium Potassium Chloride Carbon Dioxide BUN Creatinine Glucose POC Glucose 198 H 199 H Lactic Acid Calcium Phosphorus Magnesium Ferritin AST ALT Alkaline Phosphatase Lactate Dehydrogenase Troponin T C-Reactive Protein Total Protein Albumin HDL Cholesterol Arterial Blood Glucose Arterial Blood Ionized Calcium Urine WBC (Auto) Urine Creatinine 06/12/21 06/12/21 06/12/21 04:44 04:44 05:29 WBC RBC Hgb Hct MCV MCH MCHC RDW [place] # (Auto) Seg Neutrophils % Seg Neuts % (Manual) Lymphocytes % (Manual) Monocytes % (Manual) Seg Neutrophils # Seg Neutrophils # Man Lymphocytes # (Manual) Monocytes # (Manual) PT APTT D-Dimer Heparin Anti-Xa Level ABG pH POC ABG pCO2 POC ABG pO2 ABG pO2 ABG Hemoglobin ABG Oxyhemoglobin ABG Sodium ABG Potassium ABG Chloride ABG Glucose Carboxyhemoglobin Sodium 148 H Potassium Chloride Carbon Dioxide BUN 49 H 51 H Creatinine Glucose 222 H 223 H POC Glucose 193 H Lactic Acid Calcium Phosphorus Magnesium 3.20 H Ferritin AST 81 H ALT 83 H Alkaline Phosphatase 215 H Lactate Dehydrogenase Troponin T C-Reactive Protein Total Protein Albumin 3.2 L HDL Cholesterol Arterial Blood Glucose Arterial Blood Ionized Calcium Urine WBC (Auto) Urine Creatinine 06/12/21 06/12/21 06/12/21 11:21 17:55 23:23 WBC RBC Hgb Hct MCV MCH MCHC RDW [place] # (Auto) Seg Neutrophils % Seg Neuts % (Manual) Lymphocytes % (Manual) Monocytes % (Manual) Seg Neutrophils # Seg Neutrophils # Man Lymphocytes # (Manual) Monocytes # (Manual) PT APTT D-Dimer Heparin Anti-Xa Level ABG pH POC ABG pCO2 POC ABG pO2 ABG pO2 ABG Hemoglobin ABG Oxyhemoglobin ABG Sodium ABG Potassium ABG Chloride ABG Glucose Carboxyhemoglobin Sodium Potassium Chloride Carbon Dioxide BUN Creatinine Glucose POC Glucose 185 H 210 H 211 H Lactic Acid Calcium Phosphorus Magnesium Ferritin AST ALT Alkaline Phosphatase Lactate Dehydrogenase Troponin T C-Reactive Protein Total Protein Albumin HDL Cholesterol Arterial Blood Glucose Arterial Blood Ionized Calcium Urine WBC (Auto) Urine Creatinine 06/13/21 06/13/21 06/13/21 04:34 04:34 05:17 WBC 17.2 H RBC 2.56 L Hgb 8.6 L Hct 26.1 L MCV 102 H MCH 34 H MCHC RDW [place] # (Auto) Seg Neutrophils % Seg Neuts % (Manual) Lymphocytes % (Manual) Monocytes % (Manual) Seg Neutrophils # Seg Neutrophils # Man Lymphocytes # (Manual) Monocytes # (Manual) PT APTT D-Dimer Heparin Anti-Xa Level ABG pH POC ABG pCO2 POC ABG pO2 ABG pO2 ABG Hemoglobin ABG Oxyhemoglobin ABG Sodium ABG Potassium ABG Chloride ABG Glucose Carboxyhemoglobin Sodium 149 H Potassium 5.1 H Chloride Carbon Dioxide BUN 52 H Creatinine 1.6 H Glucose 231 H POC Glucose 207 H Lactic Acid Calcium Phosphorus Magnesium Ferritin AST 69 H ALT 74 H Alkaline Phosphatase 197 H Lactate Dehydrogenase Troponin T C-Reactive Protein Total Protein Albumin 3.0 L HDL Cholesterol Arterial Blood Glucose Arterial Blood Ionized Calcium Urine WBC (Auto) Urine Creatinine 06/13/21 06/13/21 06/13/21 10:44 11:07 12:07 WBC RBC Hgb Hct MCV MCH MCHC RDW [place] # (Auto) Seg Neutrophils % Seg Neuts % (Manual) Lymphocytes % (Manual) Monocytes % (Manual) Seg Neutrophils # Seg Neutrophils # Man Lymphocytes # (Manual) Monocytes # (Manual) PT APTT D-Dimer Heparin Anti-Xa Level < 0.10 L ABG pH 7.455 H POC ABG pCO2 POC ABG pO2 ABG pO2 ABG Hemoglobin 8.6 L ABG Oxyhemoglobin ABG Sodium ABG Potassium 4.7 H ABG Chloride ABG Glucose 277 H Carboxyhemoglobin Sodium Potassium Chloride Carbon Dioxide BUN Creatinine Glucose POC Glucose 241 H Lactic Acid Calcium Phosphorus Magnesium Ferritin AST ALT Alkaline Phosphatase Lactate Dehydrogenase Troponin T C-Reactive Protein Total Protein Albumin HDL Cholesterol Arterial Blood Glucose 277 H Arterial Blood Ionized Calcium Urine WBC (Auto) Urine Creatinine 06/13/21 06/13/21 06/13/21 17:35 21:13 23:19 WBC RBC Hgb Hct MCV MCH MCHC RDW [place] # (Auto) Seg Neutrophils % Seg Neuts % (Manual) Lymphocytes % (Manual) Monocytes % (Manual) Seg Neutrophils # Seg Neutrophils # Man Lymphocytes # (Manual) Monocytes # (Manual) PT APTT D-Dimer Heparin Anti-Xa Level 0.92 H ABG pH POC ABG pCO2 POC ABG pO2 ABG pO2 ABG Hemoglobin ABG Oxyhemoglobin ABG Sodium ABG Potassium ABG Chloride ABG Glucose Carboxyhemoglobin Sodium Potassium Chloride Carbon Dioxide BUN Creatinine Glucose POC Glucose 233 H 232 H Lactic Acid Calcium Phosphorus Magnesium Ferritin AST ALT Alkaline Phosphatase Lactate Dehydrogenase Troponin T C-Reactive Protein Total Protein Albumin HDL Cholesterol Arterial Blood Glucose Arterial Blood Ionized Calcium Urine WBC (Auto) Urine Creatinine 06/14/21 06/14/21 06/14/21 04:21 04:21 05:36 WBC 15.6 H RBC 2.26 L Hgb 7.6 L Hct 22.9 L MCV 101 H MCH 34 H MCHC RDW 15.3 H [place] # (Auto) Seg Neutrophils % Seg Neuts % (Manual) Lymphocytes % (Manual) Monocytes % (Manual) Seg Neutrophils # Seg Neutrophils # Man Lymphocytes # (Manual) Monocytes # (Manual) PT APTT D-Dimer Heparin Anti-Xa Level ABG pH POC ABG pCO2 POC ABG pO2 ABG pO2 ABG Hemoglobin ABG Oxyhemoglobin ABG Sodium ABG Potassium ABG Chloride ABG Glucose Carboxyhemoglobin Sodium 149 H Potassium Chloride 107.8 H Carbon Dioxide BUN 66 H Creatinine 1.8 H Glucose 192 H POC Glucose 166 H Lactic Acid Calcium Phosphorus Magnesium Ferritin AST ALT Alkaline Phosphatase Lactate Dehydrogenase Troponin T C-Reactive Protein Total Protein Albumin HDL Cholesterol Arterial Blood Glucose Arterial Blood Ionized Calcium Urine WBC (Auto) Urine Creatinine 06/14/21 06/14/21 06/14/21 12:21 17:07 23:14 WBC RBC Hgb Hct MCV MCH MCHC RDW [place] # (Auto) Seg Neutrophils % Seg Neuts % (Manual) Lymphocytes % (Manual) Monocytes % (Manual) Seg Neutrophils # Seg Neutrophils # Man Lymphocytes # (Manual) Monocytes # (Manual) PT APTT D-Dimer Heparin Anti-Xa Level ABG pH POC ABG pCO2 POC ABG pO2 ABG pO2 ABG Hemoglobin ABG Oxyhemoglobin ABG Sodium ABG Potassium ABG Chloride ABG Glucose Carboxyhemoglobin Sodium Potassium Chloride Carbon Dioxide BUN Creatinine Glucose POC Glucose 190 H 172 H 195 H Lactic Acid Calcium Phosphorus Magnesium Ferritin AST ALT Alkaline Phosphatase Lactate Dehydrogenase Troponin T C-Reactive Protein Total Protein Albumin HDL Cholesterol Arterial Blood Glucose Arterial Blood Ionized Calcium Urine WBC (Auto) Urine Creatinine 06/15/21 06/15/21 06/15/21 05:08 05:08 05:47 WBC 15.3 H RBC 2.23 L Hgb 7.3 L Hct 22.5 L MCV 101 H MCH 33 H MCHC RDW [place] # (Auto) Seg Neutrophils % Seg Neuts % (Manual) Lymphocytes % (Manual) Monocytes % (Manual) Seg Neutrophils # Seg Neutrophils # Man Lymphocytes # (Manual) Monocytes # (Manual) PT APTT D-Dimer Heparin Anti-Xa Level ABG pH POC ABG pCO2 POC ABG pO2 ABG pO2 ABG Hemoglobin ABG Oxyhemoglobin ABG Sodium ABG Potassium ABG Chloride ABG Glucose Carboxyhemoglobin Sodium 147 H Potassium Chloride Carbon Dioxide BUN 60 H Creatinine 1.6 H Glucose 158 H POC Glucose 150 H Lactic Acid Calcium 8.2 L Phosphorus 5.90 H Magnesium 3.20 H Ferritin AST ALT Alkaline Phosphatase Lactate Dehydrogenase Troponin T C-Reactive Protein Total Protein Albumin HDL Cholesterol Arterial Blood Glucose Arterial Blood Ionized Calcium Urine WBC (Auto) Urine Creatinine 06/15/21 06/15/21 06/15/21 10:19 11:25 17:47 WBC RBC Hgb Hct MCV MCH MCHC RDW [place] # (Auto) Seg Neutrophils % Seg Neuts % (Manual) Lymphocytes % (Manual) Monocytes % (Manual) Seg Neutrophils # Seg Neutrophils # Man Lymphocytes # (Manual) Monocytes # (Manual) PT APTT D-Dimer Heparin Anti-Xa Level ABG pH 7.471 H POC ABG pCO2 POC ABG pO2 ABG pO2 ABG Hemoglobin ABG Oxyhemoglobin ABG Sodium ABG Potassium ABG Chloride ABG Glucose Carboxyhemoglobin Sodium Potassium Chloride Carbon Dioxide BUN Creatinine Glucose POC Glucose 133 H 201 H Lactic Acid Calcium Phosphorus Magnesium Ferritin AST ALT Alkaline Phosphatase Lactate Dehydrogenase Troponin T C-Reactive Protein Total Protein Albumin HDL Cholesterol Arterial Blood Glucose Arterial Blood Ionized Calcium Urine WBC (Auto) Urine Creatinine 06/15/21 06/15/21 06/16/21 23:43 Unknown 04:31 WBC 13.8 H RBC 2.23 L Hgb 7.5 L Hct 22.4 L MCV 101 H MCH 34 H MCHC RDW [place] # (Auto) Seg Neutrophils % Seg Neuts % (Manual) Lymphocytes % (Manual) Monocytes % (Manual) Seg Neutrophils # Seg Neutrophils # Man Lymphocytes # (Manual) Monocytes # (Manual) PT APTT D-Dimer Heparin Anti-Xa Level ABG pH POC ABG pCO2 POC ABG pO2 ABG pO2 ABG Hemoglobin ABG Oxyhemoglobin ABG Sodium ABG Potassium ABG Chloride ABG Glucose Carboxyhemoglobin Sodium Potassium Chloride Carbon Dioxide BUN Creatinine Glucose POC Glucose 148 H Lactic Acid Calcium Phosphorus Magnesium Ferritin AST ALT Alkaline Phosphatase Lactate Dehydrogenase Troponin T C-Reactive Protein Total Protein Albumin HDL Cholesterol Arterial Blood Glucose Arterial Blood Ionized Calcium Urine WBC (Auto) Urine Creatinine 74.7 H 06/16/21 06/16/21 06/16/21 04:31 05:48 11:47 WBC RBC Hgb Hct MCV MCH MCHC RDW [place] # (Auto) Seg Neutrophils % Seg Neuts % (Manual) Lymphocytes % (Manual) Monocytes % (Manual) Seg Neutrophils # Seg Neutrophils # Man Lymphocytes # (Manual) Monocytes # (Manual) PT APTT D-Dimer Heparin Anti-Xa Level ABG pH POC ABG pCO2 POC ABG pO2 ABG pO2 ABG Hemoglobin ABG Oxyhemoglobin ABG Sodium ABG Potassium ABG Chloride ABG Glucose Carboxyhemoglobin Sodium Potassium Chloride Carbon Dioxide BUN 49 H Creatinine 1.3 H Glucose 194 H POC Glucose 184 H 190 H Lactic Acid Calcium Phosphorus 5.40 H Magnesium 2.90 H Ferritin AST ALT Alkaline Phosphatase Lactate Dehydrogenase Troponin T C-Reactive Protein Total Protein Albumin HDL Cholesterol Arterial Blood Glucose Arterial Blood Ionized Calcium Urine WBC (Auto) Urine Creatinine Chest x-ray: pending Allied health notes reviewed: nursing
[2021-06-16 19:17] LABS: Hematocrit 22.4 % (30.3-42.9); Hemoglobin 7.3 gm/dl (10.1-14.3); Mean Corpuscular HGB Conc 33 % (30-34); Mean Corpuscular Volume 101 fl (79-97); Platelet Count 225 K/mm3 (140-440); Red Blood Count 2.22 M/mm3 (3.65-5.03); Red Cell Distribution Width 15.1 % (13.2-15.2)
[2021-06-16 19:31] LABS: INR 1.08 (0.87-1.13)
[2021-06-16 20:08] LABS: Partial Thromboplastin Time 64.1 Sec. (24.2-36.6)
[2021-06-16] MEDS: APIXABAN 5 MG TAB PO SCH (22:31)
[2021-06-16] MEDS: INSULIN GLARGINE 100 UNITS/ML SUB-Q SCH (22:36)
[2021-06-17] MEDS: FREE WATER PO SCH ×4 (00:37→18:00)
[2021-06-17] MEDS: hydrALAZINE 25 MG TAB PO SCH ×3 (06:00→22:47)
--- NOTE | 2021-06-17 07:40 | Progress Note ---
Assessment and Plan Assessment and plan: This is a 65 year old female with HTN, nonepileptic spells, PTSD, close head injury, DM, CAD s/p stents and MS, independence, hyperlipidemia admitted with sepsis, pneumonia, acute proximal respiratory failure, toxic metabolic encephalopathy, suspected anoxic brain injury, metabolic acidosis Tracheal aspirate gram-negative rods, empiric antibiotics cefepime ordered, follow culture sensitivities Consider ID evaluation if needed Neuro: Toxic metabolic encephalopathy, likely anoxic brain injury, tonic-cloninc seziure; h/o nonepileptic spells, PTSD, closed head injury -Neurology consulted, appreciate recommendations -CT head completed->see results, without acute or large territorial infarct -Per neurology: MRI brain is suggestive of water shed Infarct Bilateral -- mostly related to Hypoperfusion -06/01 repeat MRI brain noted, possible subacute ischemic changes. -Off sedation -Intact cough/gag, pupils sluggish -Keppra -EEG showed no signs of seizure -prn ativan -Patient is off sedation, open eyes spontaneously, pupils reactive, with +gag and cough. -Not following commands, no movement to stimuli Cardio: S/p cardiac arrest, A. fib with RVR, h/o HTN -Currently on Labetalol, Hydralazine, valsartan, & Doxazosin -PRN hydral IV -Cardiology consulted, appreciate recommendations -05/2020 dobutamine thallium stress test showed normal perfusion study. -05/2020 echo showed normal left ventricular systolic function. -NIBP per protocol Resp: Acute hypoxic respiratory failure -CCM consulted, appreciate recommendations -Intubated 05/25 with 7.0 oett at 23 lip, trach on 06/12 -06/15 T piece trials started, currently on T-piece -see RT notes for titration -ABG/CXR -Continuous SP02 monitoring -Scopalamine and robinul for secretions -discontinued today -VAP bundle GI: protein -aspen malnutrition -Ntr consult for TF -PEG placed 06/12 -PPI -24hr +1630 -BR: senokot, maalox, colace; prn dulcolex -BM: 06/10 : Acute renal injury likely 2/2 to vasomotor nephrology -increase noted in bun/cr 06/13 -strict I&O -daily weights -urine lytes ordered -candie -Trend BMP -Monitor and replete electrolytes as needed -FWF 250 q 4hours -hypernatremia and Cr slightly improving Endo: Hyperglycemia, h/o DM -SSI -Lantus, titrate as needed -Avoid hypoglycemia -accucheck q6 Heme: Leukocytosis -CTA chest without evidence of PE -IV heparin d/t afib -transitioned to PO -CAMILO-VASC2 score 4 -Trend CBC -Transfuse for hgb<7 ID: Sepsis, Bilateral Lower Lobe Infiltrates -COVID 19 PCR (-) -s/p cefepime 05/25-05/29 -admit cxr with infiltrates, CTA chest with dense dependent consolidation/atelectasis in lungs -Monitor temp and WBC curve -noted spike in temp overnight -CXR, Blood culture, UA, Sputum culture ordered -BC/UC/Tracheal aspirate NGTD from 05/25 -Covid 19 PCR negative -06/07 CRP 28.90 and procal 0.36 Dispo: pending LTACH We will closely monitor the patient and adjust management as needed Plan of care reviewed with the patient's nurse I also discussed with the athletic coordinator Dr. Burt The high probability of a clinically significant, sudden or life threatening deterioration of the [multiple] system(s) required my full and direct attention, intervention and personal management. The aggregate critical care time was [60] minutes. This time is in addition to time spent performing reported procedures but includes the following: [x] Data Review and interpretation [x] Patient assessment and monitoring of vital signs [x] Documentation [x] Medication orders and management Disposition Plan: icu Total Time Spent with Patient (Minutes): 60 History Interval history: 65-year-old female, history of nonepileptic spells, PTSD, closed head injury, hypertension, diabetes, CAD, presents to the ED following cardiac arrest. EMS states Patient collapsed and became unresponsive. Patient was pulseless and apneic. Rhythm was asystole. Patient was intubated by EMS. She was given epi x2. ACLS times approximately 10 minutes followed by return of pulses. Accu- Chek in the 200s. With initial rhythm check here in ED, patient was pulseless, so ACLS restarted. Patient has return of pulse and noted to be in atrial fib, initiated on iv keppra and heparin drip. 05/26/21: Updated family at the bedside, Covid test is negative. Will order EEG and neuro consult. Remains intubated, follow clinically. Sedated on Midazolam and Propofol, just received one dose of Lorazepam for witnessed seizure by RN. NSR now, on heparin drip 05/27/21; remains intubated. pending EEG and neuro eval. wean off vent as tolerated. Continue heparin drip per cardiology, replete potassium yesterday, follow BMP. BP noted to be elevated, next started on antihypertensives. 05/28/21; BP noted to be elevated, initiated on antihypertensive, remains intubated. Pending neurology evaluation and EEG. Continue supportive care, follow BMP. 05/29/21: Ordered for MRI brain, continue Keppra, pending EEG. Appreciate neuro recommendation. follow BMP, tolerating TF 05/30/21: Patient remains intubated, pending MRI brain, follow neurology recommendation. EEG showed diffuse slowing. 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 off sedation now, cont to follow. gurded prognosis 06/01: MRI was suggestive of watershed infarct bilaterally and was seen by neurology and recommend to do MRI with gadolinium. Patient is off sedation and still unresponsive. Prognosis is guarded. 06/02: Continue current management. Prognosis is guarded. Patient needs trach. 06/03: Patient is unresponsive spite of all sedatives. Prognosis is guarded to poor. Neurology consult appreciated. 06/04: Patient is unresponsive. Patient is off sedatives. Blood sugar is uncontrolled and I adjusted her insulin. Neurology consult appreciated. Prognosis is guarded to poor. 06/05/21- Patient remains ETT and on vent support. Off sedation with some improvement in neuro status, but is not following commands. Patient is tolerating SBT trial this am, still on the heparin gtt. AM labs is pending. Patient is still hyperglycemic, increased Qhs lantus. Continue supportive care. 06/06/21- Patient is intubated and on the vent. No longer on sedation, awake but unresponsive, tolerating SBT. Hyperglycemia this am, X1 dose of kayaxalate orderd. Persistent hyperglycemia, insulin adjusted. Continue to monitor electrolytes, repeat BMP this afternoon and am labs ordered. 06/07/21- Patient remains intubated and on the vent. Neuro status is unchanged, spontaneously open yes but is not following commands. SBT trial again, plan to place back on a rate overnight. Leukocytosis noted from this morning lab, stat procalc and CRP ordered, d/w CCM no abx at this time. K 5.4 today, kayalalxate given. Continue to monitor leukocytosis and electrolytes. Am labs ordered 06/08/21- Patient remains intubated and on the vent with no significant change in her neuro status. Patient with no BM in 7days, abdominal soft with positive bowel sounds, colace added and PRN ducolax Supp PRN. Continue to monitor leukocytosis and electrolytes, am labs ordered. Plan for trach and PEG, surgery consulted. 06/09/21- Patient remains stable, intubated with no significant change in neuro status. Trach and Peg cancelled for today. Plan for possibly next week. Hyperkalemia again today, chart review for possible meds interaction. X1 dose of kayexalate ordered. Still no BM today. Episode of emesis today, TF held and NGT to LIS until tommorrow. Orders place for KUB today and Chest XR for the morning. Morning labs ordered. 06/10: Continue supportive care. Trach and PEG planned for early next week. KUB and x-ray with no significant change. Opacity still persist. Critical care management noted. Patient still persistent leukocytosis we will continue to monitor mild hypokalemia noted will replace with potassium. Also noted mild hypernatremia. Agree with holding tube feeds at this time 06/11: Discussed with nursing staff to change to history trickle feeds. Patient is planned for trach and PEG Saturday or Saturday. Continue current management also discussed to hold heparin drip for planned procedure with noted timeframe. We will recheck labs to ensure correction of electrolytes. 06/12/21- Patient's status is unchanged. No significant events overnight. Plan for trach and PEG today. TF and heparin gtt on hold. Continue supportive care. Continue to monitor electrolytes, am labs ordered. 06/13/21- Patient is s/p trach and PEG. D/w surgery okay to use PEGTube and restart TF. Heparin gtt was also restarted per protocol. Persistent hypernatremia and FWF increased for 48hrs, mild hyperkalemia noted no i ntervention at this time. Continue to monitor renal function and electrolytes, am labs ordered. 06/14: Transition to PO anticoagulation from heparin gtt tomorrow. plan to place on tpiece tomorrow. 06/15: Patient spiked a temp today and was root cultured, h/h decreasing and stool occult ordered. Increase in insulin. T piece trials today. Small volume emesis x2 06/16; patient is on T-piece, On heparin drip for A. fib, will transition to Eliquis , I discussed the case with athletic coordinator 06/17; tracheal cultures positive for gram-negative rods, ordered cefepime, follow cultures Consider ID consult History Interval history: I have seen and examined the patient at the bedside Patient's chart and medications reviewed S/p tracheostomy on vent No new overnight events reported by the nursing Hospitalist Physical - Constitutional Vitals: Temp Pulse Resp BP Pulse Ox 97.4 F L 78 19 161/65 100 06/17/21 02:45 06/17/21 06:00 06/17/21 06:00 06/17/21 06:00 06/17/21 06:00 General appearance: Present: no acute distress, well-nourished, other (Trach on vent) - EENT Eyes: Present: PERRL, EOM intact ENT: other (Tracheostomy on T-piece) - Neck Neck: Present: other (Tracheostomy) - Respiratory Respiratory effort: normal Respiratory: bilateral: diminished, negative: rales, rhonchi, wheezing - Cardiovascular Rhythm: regular Heart Sounds: Present: S1 & S2 - Extremities Extremities: no ischemia, No edema - Abdominal General gastrointestinal: soft, non-tender, non-distended, normal bowel sounds - Integumentary Integumentary: Present: clear, warm - Psychiatric Psychiatric: other (Noncommunicative trach and PEG) - Neurologic Neurologic: other (Noncommunicative trach and PEG) HEART Score - HEART Score Troponin: Troponin T 0.226 ng/mL (0.00-0.029) H* D 05/25/21 15:19 Results - Labs CBC & Chem 7: 06/16/21 18:51 06/16/21 18:51 Labs: Laboratory Last Values WBC 12.4 K/mm3 (4.5-11.0) H 06/16/21 18:51 RBC 2.22 M/mm3 (3.65-5.03) L 06/16/21 18:51 Hgb 7.3 gm/dl (10.1-14.3) L 06/16/21 18:51 Hct 22.4 % (30.3-42.9) L 06/16/21 18:51 MCV 101 fl (79-97) H 06/16/21 18:51 MCH 33 pg (28-32) H 06/16/21 18:51 MCHC 33 % (30-34) 06/16/21 18:51 RDW 15.1 % (13.2-15.2) 06/16/21 18:51 Plt Count 225 K/mm3 (140-440) 06/16/21 18:51 Lymph % (Auto) 14.3 % (13.4-35.0) 05/28/21 04:00 [place]ney % (Auto) 6.9 % (0.0-7.3) 05/28/21 04:00 Eos % (Auto) 0.1 % (0.0-4.3) 05/28/21 04:00 Baso % (Auto) 0.5 % (0.0-1.8) 05/28/21 04:00 Lymph # (Auto) 1.9 K/mm3 (1.2-5.4) 05/28/21 04:00 [place]ney # (Auto) 0.9 K/mm3 (0.0-0.8) H 05/28/21 04:00 Eos # (Auto) 0.0 K/mm3 (0.0-0.4) 05/28/21 04:00 Baso # (Auto) 0.1 K/mm3 (0.0-0.1) 05/28/21 04:00 Add Manual Diff Complete 06/08/21 04:25 Total Counted 100 06/08/21 04:25 Seg Neutrophils % 78.2 % (40.0-70.0) H 05/28/21 04:00 Seg Neuts % (Manual) 76.0 % (40.0-70.0) H 06/08/21 04:25 Band Neutrophils % 4.0 % 06/08/21 04:25 Lymphocytes % (Manual) 6.0 % (13.4-35.0) L 06/08/21 04:25 Monocytes % (Manual) 8.0 % (0.0-7.3) H 06/08/21 04:25 Eosinophils % (Manual) 1.0 % (0.0-4.3) 06/08/21 04:25 Metamyelocytes % 3.0 % 06/08/21 04:25 Myelocytes % 2.0 % 06/08/21 04:25 Nucleated RBC % Not Reportable 06/08/21 04:25 Seg Neutrophils # 10.6 K/mm3 (1.8-7.7) H 05/28/21 04:00 Seg Neutrophils # Man 12.0 K/mm3 (1.8-7.7) H 06/08/21 04:25 Band Neutrophils # 0.6 K/mm3 06/08/21 04:25 Lymphocytes # (Manual) 0.9 K/mm3 (1.2-5.4) L 06/08/21 04:25 Abs React Lymphs (Man) 0.0 K/mm3 06/08/21 04:25 Monocytes # (Manual) 1.3 K/mm3 (0.0-0.8) H 06/08/21 04:25 Eosinophils # (Manual) 0.2 K/mm3 (0.0-0.4) 06/08/21 04:25 Basophils # (Manual) 0.0 K/mm3 (0.0-0.1) 06/08/21 04:25 Metamyelocytes # 0.5 K/mm3 06/08/21 04:25 Myelocytes # 0.3 K/mm3 06/08/21 04:25 Promyelocytes # 0.0 K/mm3 06/08/21 04:25 Blast Cells # 0.0 K/mm3 06/08/21 04:25 WBC Morphology Not Reportable 06/08/21 04:25 Hypersegmented Neuts Not Reportable 06/08/21 04:25 Hyposegmented Neuts Not Reportable 06/08/21 04:25 Hypogranular Neuts Not Reportable 06/08/21 04:25 Smudge Cells Not Reportable 06/08/21 04:25 Toxic Granulation Not Reportable 06/08/21 04:25 Toxic Vacuolation Not Reportable 06/08/21 04:25 Dohle Bodies Not Reportable 06/08/21 04:25 Pelger-Huet Anomaly Not Reportable 06/08/21 04:25 Peter Rods Not Reportable 06/08/21 04:25 Platelet Estimate Consistent w auto 06/08/21 04:25 Clumped Platelets Not Reportable 06/08/21 04:25 Plt Clumps, EDTA Not Reportable 06/08/21 04:25 Large Platelets Not Reportable 06/08/21 04:25 Giant Platelets Not Reportable 06/08/21 04:25 Platelet Satelliting Not Reportable 06/08/21 04:25 Plt Morphology Comment Not Reportable 06/08/21 04:25 RBC Morphology Not Reportable 06/08/21 04:25 Dimorphic RBCs Not Reportable 06/08/21 04:25 Polychromasia Not Reportable 06/08/21 04:25 Hypochromasia Not Reportable 06/08/21 04:25 Poikilocytosis Not Reportable 06/08/21 04:25 Anisocytosis Not Reportable 06/08/21 04:25 Microcytosis Not Reportable 06/08/21 04:25 Macrocytosis Not Reportable 06/08/21 04:25 Spherocytes Not Reportable 06/08/21 04:25 Pappenheimer Bodies Not Reportable 06/08/21 04:25 Sickle Cells Not Reportable 06/08/21 04:25 Target Cells Not Reportable 06/08/21 04:25 Tear Drop Cells Not Reportable 06/08/21 04:25 Ovalocytes Not Reportable 06/08/21 04:25 Helmet Cells Not Reportable 06/08/21 04:25 Toribio-Luke Bodies Not Reportable 06/08/21 04:25 [place] Rings Not Reportable 06/08/21 04:25 [place] Cells Not Reportable 06/08/21 04:25 Bite Cells Not Reportable 06/08/21 04:25 Crenated Cell Not Reportable 06/08/21 04:25 Elliptocytes Not Reportable 06/08/21 04:25 Acanthocytes (Spur) Not Reportable 06/08/21 04:25 Rouleaux Not Reportable 06/08/21 04:25 Hemoglobin C Crystals Not Reportable 06/08/21 04:25 Schistocytes Not Reportable 06/08/21 04:25 Malaria parasites Not Reportable 06/08/21 04:25 Shravan Bodies Not Reportable 06/08/21 04:25 Hem Pathologist Commnt No 06/08/21 04:25 PT 14.5 Sec. (12.2-14.9) 06/16/21 18:51 INR 1.08 (0.87-1.13) 06/16/21 18:51 APTT 64.1 Sec. (24.2-36.6) H* 06/16/21 18:51 D-Dimer > 99374 ng/mlDDU (0-234) H 05/25/21 09:21 Heparin Anti-Xa Level 1.53 U.I./ml (0.3-0.7) H 06/17/21 04:19 ABG pH 7.471 (7.320-7.450) H 06/15/21 10:19 POC ABG pCO2 40.4 mmHg (32.0-48.0) 06/15/21 10:19 ABG pCO2 30.3 mm Hg 05/29/21 05:28 POC ABG pO2 90.1 mmHg (83-108) 06/15/21 10:19 ABG pO2 96.2 mm Hg (80.0-90.0) H 05/29/21 05:28 POC ABG HCO3 28.8 06/15/21 10:19 ABG HCO3 24.0 mmol/L (20.0-26.0) 05/29/21 05:28 ABG O2 Saturation 97.4 (0-100) 06/15/21 10:19 ABG O2 Content 10.3 (0.0-44) 05/29/21 05:28 POC ABG Base Excess 4.8 06/15/21 10:19 ABG Base Excess 1.2 mmol/L (-2.0-3.0) 05/29/21 05:28 ABG Hemoglobin 8.6 (12.0-17.5) L 06/13/21 11:07 ABG Oxyhemoglobin 96.0 (94-98) 06/15/21 10:19 ABG Carboxyhemoglobin 1.6 % (0.0-5.0) 05/29/21 05:28 ABG Methemoglobin 0.3 (0.0-1.5) 06/13/21 11:07 ABG Sodium 144.0 mmol/L (136.0-145.0) 06/13/21 11:07 ABG Potassium 4.7 mmol/L (3.40-4.50) H 06/13/21 11:07 ABG Chloride 107.0 mmol/L (98-107) 06/13/21 11:07 ABG Glucose 277 mg/dL (65-95) H 06/13/21 11:07 Oxyhemoglobin 96.0 % (95.0-99.0) 05/29/21 05:28 Carboxyhemoglobin 1.5 (0.5-1.5) 06/15/21 10:19 FiO2 30 % 05/29/21 05:28 FiO2 % 40 06/15/21 10:19 Sodium 145 mmol/L (137-145) 06/16/21 04:31 Potassium 4.1 mmol/L (3.6-5.0) 06/16/21 04:31 Chloride 103.9 mmol/L (98-107) 06/16/21 04:31 Carbon Dioxide 27 mmol/L (22-30) 06/16/21 04:31 Anion Gap 18 mmol/L 06/16/21 04:31 BUN 49 mg/dL (7-17) H 06/16/21 04:31 Creatinine 1.1 mg/dL (0.6-1.2) 06/16/21 18:51 Estimated GFR 60 ml/min 06/16/21 18:51 BUN/Creatinine Ratio 38 % 06/16/21 04:31 Glucose 194 mg/dL (65-100) H 06/16/21 04:31 POC Glucose 167 mg/dL (70-105) H 06/17/21 05:02 Lactic Acid 2.30 mmol/L (0.7-2.0) H* 05/26/21 05:49 Calcium 8.6 mg/dL (8.4-10.2) 06/16/21 04:31 Phosphorus 5.40 mg/dL (2.5-4.5) H 06/16/21 04:31 Magnesium 2.90 mg/dL (1.7-2.3) H 06/16/21 04:31 Ferritin 321.6 ng/mL (10.0-200.0) H 05/25/21 09:21 Total Bilirubin 0.50 mg/dL (0.1-1.2) 06/13/21 04:34 Direct Bilirubin < 0.2 mg/dL (0-0.2) 05/25/21 09:21 Indirect Bilirubin 0.2 mg/dL 05/25/21 09:21 AST 69 units/L (5-40) H 06/13/21 04:34 ALT 74 units/L (7-56) H 06/13/21 04:34 Alkaline Phosphatase 197 units/L (35-129) H 06/13/21 04:34 Lactate Dehydrogenase 445 units/L (91-180) H 05/25/21 09:21 Troponin T 0.226 ng/mL (0.00-0.029) H* D 05/25/21 15:19 C-Reactive Protein 28.90 mg/dL (0.00-1.30) H 06/07/21 14:52 NT-Pro-B Natriuret Pep 173.2 pg/mL (0-900) 05/25/21 09: Total Protein 7.5 g/dL (6.3-8.2) 06/13/21 04:34 Albumin 3.0 g/dL (3.9-5) L 06/13/21 04:34 Albumin/Globulin Ratio 0.7 % 06/13/21 04:34 Triglycerides 124 mg/dL (2-149) 05/30/21 11:19 Cholesterol 198 mg/dL (50-199) 05/25/21 15:19 LDL Cholesterol Direct 80 mg/dL (50-130) 05/25/21 15:19 HDL Cholesterol 64 mg/dL (40-59) H 05/25/21 15:19 Cholesterol/HDL Ratio 3.09 % 05/25/21 15:19 Procalcitonin 0.36 ng/mL (<0.15) 06/07/21 14:52 Arterial Blood Glucose 277 mg/dL (65-95) H 06/13/21 11:07 Arterial Blood Ionized Calcium 4.6 mg/dL (4.6-5.3) 06/02/21 04:13 Urine Color Yellow (Yellow) 06/15/21 Unknown Urine Turbidity Slightly-cloudy (Clear) 06/15/21 Unknown Urine pH 6.0 (5.0-7.0) 06/15/21 Unknown Ur Specific [place] 1.013 (1.003-1.030) 06/15/21 Unknown Urine Protein <15 mg/dl mg/dL (Negative) 06/15/21 Unknown Urine Glucose (UA) Neg mg/dL (Negative) 06/15/21 Unknown Urine Ketones Neg mg/dL (Negative) 06/15/21 Unknown Urine Blood Mod (Negative) 06/15/21 Unknown Urine Nitrite Neg (Negative) 06/15/21 Unknown Ur Reducing Substances Not Reportable 06/15/21 Unknown Urine Bilirubin Neg (Negative) 06/15/21 Unknown Urine Ictotest Not Reportable 06/15/21 Unknown Urine Urobilinogen < 2.0 mg/dL (<2.0) 06/15/21 Unknown Ur Leukocyte Esterase Mod (Negative) 06/15/21 Unknown Urine WBC (Auto) 3.0 /HPF (0.0-6.0) 06/15/21 Unknown Urine RBC (Auto) 3.0 /HPF (0.0-6.0) 06/15/21 Unknown U Epithel Cells (Auto) 2.0 /HPF (0-13.0) 06/15/21 Unknown Urine Bacteria (Auto) 1+ /HPF (Negative) 06/15/21 Unknown Urine Mucus Few /HPF 06/15/21 Unknown Urine Yeast (Budding) Few /HPF 06/15/21 Unknown Urine Osmolality 430 Mosm/kg 06/15/21 Unknown Urine Creatinine 74.7 mg/dL (0.1-20.0) H 06/15/21 Unknown Urine Sodium 14 mmol/L 06/15/21 Unknown Coronavirus (PCR) Negative (Negative) 05/30/21 08:15 Blood Type O POSITIVE 06/15/21 08:00 Antibody Screen Negative 06/15/21 08:00 Microbiology: Microbiology 06/15/21 08:07 Tracheal Aspirate Sputum Culture - Preliminary Gram Negative Luis 06/15/21 07:56 Peripheral/Venous Blood Culture - Preliminary NO GROWTH AFTER 24 HOURS 06/15/21 07:56 Peripheral/Venous Blood Culture - Preliminary NO GROWTH AFTER 24 HOURS 06/15/21 05:50 Stool Stool Occult Blood (AVRIL) - Final Tan/IV: Voiding Method External Female Catheter Active Medications - Current Medications Current Medications: Generic Name Dose Route Start Last Admin Trade Name Freq PRN Reason Stop Dose Admin Acetaminophen 650 mg 05/25/21 13:48 05/28/21 04:14 Acetaminophen 325 Mg Tab PO 650 mg Q6H PRN Administration Pain MILD(1-3)/Fever >100.5/SOTOMAYOR Lipase/Protease/Amylase 1 each 05/26/21 10:00 Lipase 10,500/Protease 25,000/Amylase 43,750 (Units) Dr Munguia FEEDTUBE PRN PRN For Clogged Feeding Tube Apixaban 5 mg 06/16/21 22:00 06/16/21 22:31 Apixaban 5 Mg Tab PO 5 mg Q12HR ABDIRAHMAN Administration Protocol Bisacodyl 10 mg 06/08/21 10:00 Bisacodyl 10 Mg Rect Supp AR QDAY PRN Constipation Dextrose 50 ml 05/28/21 14:28 Dextrose 50% In Water (25gm) 50 Ml Syringe IV Q30MIN PRN Hypoglycemia Protocol Docusate Sodium 100 mg 06/08/21 10:00 06/16/21 22:33 Docusate Sodium 100 Mg/10 Ml Oral Liqd PO 100 mg BID ABDIRAHMAN Administration Doxazosin Mesylate 2 mg 06/01/21 12:00 06/16/21 22:34 Doxazosin 1 Mg Tab PO 2 mg BID ABDIRAHMAN Administration Famotidine 20 mg 05/29/21 10:00 06/16/21 22:31 Famotidine 20 Mg Tab FEEDTUBE 20 mg BID ABDIRAHMAN Administration Hydralazine HCl 10 mg 06/01/21 11:43 06/07/21 17:23 Hydralazine 20 Mg/1 Ml Inj IV 10 mg Q4HR PRN Administration SBP >160 Hydralazine HCl 50 mg 06/03/21 22:00 06/17/21 06:00 Hydralazine 25 Mg Tab PO 50 mg Q8HR ABDIRAHMAN Administration Hydrophilic Ointment 1 applic 05/25/21 19:04 Lip Therapy Vaseline TP Q2HR PRN Dry Lips Insulin Glargine 30 units 06/15/21 22:00 06/16/21 22:36 Insulin Glargine 100 Units/Ml SUB-Q 30 units QHS ABDIRAHMAN Administration Insulin Human Lispro 0 unit 05/29/21 12:00 06/16/21 19:01 Insulin Lispro 100 Unit/Ml SUB-Q 3 unit Q6HR ABDIRAHMAN Administration Protocol Labetalol HCl 300 mg 06/03/21 13:40 06/16/21 22:31 Labetalol 100 Mg Tab PO 300 mg BID ABDIRAHMAN Administration Levetiracetam 250 mg 06/01/21 22:00 06/16/21 22:33 Levetiracetam 500 Mg/5 Ml Oral Liqd FEEDTUBE 250 mg Q12HR ABDIRAHMAN Administration Multi-Ingred Cream/Lotion/Oil/Oint 1 applic 05/25/21 19:04 Mineral Oil/Petrolatum, White Ophth Oint 3.5 Gm OU Q4HR PRN Dry Eye(s) Polyethylene Glycol 17 gm 06/05/21 11:00 06/16/21 10:53 Polyethylene Glycol 3350 17 Gm Powder PO Not Given QDAY ABDIRAHMAN Senna/Docusate Sodium 1 tab 05/25/21 22:00 06/16/21 22:33 Sennosides/Docusate Sodium 8.6/50 Mg Tab FEEDTUBE 1 tab BID ABDIRAHMAN Administration Simple Syrup 15 ml 05/26/21 10:00 Simple Syrup 15 Ml FEEDTUBE PRN PRN Hypoglycemia Simple Syrup 30 ml 05/26/21 10:00 Simple Syrup 15 Ml FEEDTUBE PRN PRN Hypoglycemia Sodium Bicarbonate 325 mg 05/26/21 10:00 Sodium Bicarbonate 325 Mg Tab FEEDTUBE PRN PRN For Clogged Feeding Tube Sodium Chloride 10 ml 05/25/21 22:00 06/16/21 10:59 Sodium Chloride 0.9% 10 Ml Flush Syringe IV 10 ml BID ABDIRAHMAN Administration Sodium Chloride 10 ml 05/25/21 13:48 06/04/21 03:57 Sodium Chloride 0.9% 10 Ml Flush Syringe IV 10 ml PRN PRN Administration LINE FLUSH Valsartan 160 mg 06/11/21 10:00 06/16/21 22:33 Valsartan 160mg Tab PO 160 mg BID ABDIRAHMAN Administration Nutrition/Malnutrition Assess - Dietary Evaluation Nutrition/Malnutrition Findings: Nutrition Notes Start: 05/26/21 09:00 Freq: Status: Active Protocol: Document 06/13/21 10:34 GB (Rec: 06/13/21 10:47 GB [email or web address]) Nutrition Notes Need for Assessment generated from: MD Order Initial or Follow up Reassessment Current Diagnosis COPD,Diabetes,Sepsis, Hypertension,Respiratory Failure Other Pertinent Diagnosis cardiac arrest, seizure disorder, (06/12: Trach/PEG) Labs/Tests 06/13: Na 149, K 5.1, BUN 52, creatinine 1.6, glucose 231, AST 69, ALT 74, AlkP 197 Pertinent Medications NaCl Height 5 ft 4 in Weight 63 kg [place] Body Weight (kg) 54.54 BMI 23.8 Weight change and time frame -6.6% since admission No new weights after 06/07 Weight Status Appropriate Subjective/Other Information 06/12: Trach/PEG 06/12: TF formula changed to glucerna 1.2 r/t altered labs and now with trach/peg Last BM 06/10 Percent of energy/protein needs met: TF goal rate meets 75% or greater of estimated energy needs Burn Absent Trauma Absent GI Symptoms None Difficulty In Swallowing Food Allergy No Current % PO Other Minimum of two criteria No #1 Nutrition Diagnosis Inadequate oral intake Comments: 06/02: On vent. TF continues. 06/07: Ventilation continues, TF continues. 06/13: Trach/PEG on 06/12, change formula to glucerna 1.2 Etiology ARF As Evidenced by Signs and Symptoms pt on vent and unable to consume PO Diagnosis Progress(for reassessment Continues documentation) Is patient on ventilator? Yes Is Patient Ambulatory and/or Out of Bed No REE-([facility]-confined to bed) 1385.676 Kcal/Kg value to use for calculation 23 Approximate Energy Requirements Using 1449 kcal/Kg Calculation Used for Recommendations Kcal/kg Additional Notes Protein: (1-1.5g/kg @63kg) 63- 95g Fluid: 1 ml/kcal or per MD Nutrition Intervention Change Diet Order: Continue NPO Nutrition Support: Vital AF 1.2 at 50 ml/hr Flush 75 ml q4h 06/07: continues 06/13: Trach/PEG on 06/12, change formula to glucerna 1.2 Kcal 1,440 Protein (gm) 72 Fat (gm) 72 Fluid (mL) 966 Goal #1 Meet 75% or greater of protein and energy needs via TF 06/13: TF at goal meets 100% estimated energy needs: met, continues Goal #2 Change TF formula. Complete current vital 1.2 bottle, change to glucerna 1.2 r/t DM and related lab results Follow-Up By: 06/19/21 Additional Comments f/u: formula change to glucerna 1.2, at goal 50ml/hr, weight, labs
--- NOTE | 2021-06-17 10:46 | Event Note ---
Date: 06/17/21 Patient remains unresponsive, on the vent, telemetry shows a stable sinus rhythm and stable blood pressure. She was taken off heparin and placed on subcutaneous heparin. There are no active cardiac issues, we will sign off and follow on a as needed basis.
[2021-06-17] MEDS: VALSARTAN 160MG TAB PO SCH ×2 (11:37→22:47)
[2021-06-17] MEDS: DOXAZOSIN 1 MG TAB PO SCH ×2 (11:38→22:48)
[2021-06-17] MEDS: levETIRAcetam 500 MG/5 ML ORAL LIQD FEEDTUBE SCH ×2 (11:38→22:46)
[2021-06-17] MEDS: DOCUSATE SODIUM 100 MG/10 ML ORAL LIQD PO SCH ×2 (11:38→22:46)
[2021-06-17] MEDS: APIXABAN 5 MG TAB PO SCH ×2 (11:39→22:51)
[2021-06-17] MEDS: FAMOTIDINE 20 MG TAB FEEDTUBE SCH ×2 (11:39→22:48)
[2021-06-17] MEDS: POLYETHYLENE GLYCOL 3350 17 GM POWDER PO SCH (11:40)
[2021-06-17] MEDS: SENNOSIDES/DOCUSATE SODIUM 8.6/50 MG TAB FEEDTUBE SCH ×2 (11:40→22:46)
[2021-06-17] MEDS: INSULIN LISPRO 100 UNIT/ML SUB-Q SCH ×2 (12:20→18:09)
--- NOTE | 2021-06-17 14:42 | Progress Note ---
Assessment and Plan Acute hypoxemic respiratory failure on MVS Cardiopulmonary arrest wtih ROSC Seizure disorder Sepsis Toxic metabolic encephalopathy, possible anoxia Atrial fibrillation with RVR Metabolic acidosis Bilateral lower lobe infiltrates - continue t-piece trials as tolerated - transitioned to oral Eliquis - continue scopolamine patch - continue care as below otherwise; - LTAC evaluation is appropriate - azotemia per nephrology team (non-oliguric) - daily SAT and SBT assessment as tolerated - continue to wean supplemental oxygen for target O2 sat's > 90% acutely - VAP bundle addressed - continue lung protective strategies - continue bronchodilators with pulmonary hygiene per RT - wean per pulmonary driven protocols otherwise - continue accuchecks with glycemic control per SSI (While critically ill target blood glucose of 140-180 mg/dL; avoid hypoglycemia) - sedation prn for target RASS 0 to -1 - avoid nephrotoxins, renally dose all medications - continue scopolamine for secretion control - continue Keppra as AED - continue to avoid benzodiazepine's, reduce the possibility of delirium - AB's per ID rec's - prn analgesia per CPOT score - Maintenance of sleep-wake cycle, avoid delirium - continue enteral nutritional support at goal rate as tolerated - G.I. & VTE prophylaxis - PT/OT/ROM exercises - continue mobility protocols for pressure ulcer prophylaxis - Monitor hemodynamics closely - continue other care per attending / other consultants - discharge planning ongoing concurrently COVID SPECIFIC INTERVENTIONS - COVID-19 PCR negative .... Re-evaluate in am & prn CONDITION: CRITICAL PROGNOSIS: GUARDED CODE STATUS: FULL CODE The high probability of a clinically significant, sudden or life-threatening deterioration of the [respiratory, cardiovascular, renal & neurologic] system(s) required my full and direct attention, intervention and personal management. The aggregate critical care time was [34] minutes without overlap. Time includes spent on; [x] Data Review and interpretation [x] Patient assessment and monitoring of vital signs [x] Documentation [x] Medication orders and management Subjective Date of service: 06/17/21 Principal diagnosis: Ac hypoxemic resp failure; Cardiac arrest; Seizures; Sepsis; AMS; A-Fib RVR Interval history: Patient is seen today for: Acute hypoxemic respiratory failure; Cardiac arrest wtih ROSC; Seizure disorder; Sepsis; AMS; A-Fib with RVR Seen and examined at bedside; 24hour events reviewed; nursing and respiratory care staff consulted; no adverse overnight events reported to me; resting in bed; rested on MVS; on PSV trial and tolerating well; AMS is persistent; tolerated a few hours on t-piece earlier Objective Vital Signs - 12hr 06/17/21 06/17/21 06/17/21 02:45 03:00 03:30 Temperature 97.4 F L Pulse Rate 90 80 Pulse Rate [ From Monitor] Respiratory 21 14 Rate Blood Pressure 171/67 151/59 O2 Sat by Pulse 100 100 Oximetry O2 Sat by Pulse Oximetry [ Assessment] 06/17/21 06/17/21 06/17/21 03:58 04:00 04:30 Temperature Pulse Rate 94 H 82 93 H Pulse Rate [ 88 From Monitor] Respiratory 22 19 Rate Blood Pressure 150/60 150/60 158/75 O2 Sat by Pulse 100 95 100 Oximetry O2 Sat by Pulse Oximetry [ Assessment] 06/17/21 06/17/21 06/17/21 04:34 05:00 05:30 Temperature Pulse Rate 86 85 Pulse Rate [ From Monitor] Respiratory 21 17 Rate Blood Pressure 144/61 155/60 O2 Sat by Pulse 100 100 Oximetry O2 Sat by Pulse 100 Oximetry [ Assessment] 06/17/21 06/17/21 06/17/21 06:00 06:30 07:00 Temperature Pulse Rate 78 88 85 Pulse Rate [ From Monitor] Respiratory 19 23 21 Rate Blood Pressure 161/65 161/65 155/62 O2 Sat by Pulse 100 100 100 Oximetry O2 Sat by Pulse Oximetry [ Assessment] 06/17/21 06/17/21 06/17/21 07:30 07:53 07:57 Temperature 100.6 F H Pulse Rate 79 83 Pulse Rate [ From Monitor] Respiratory 17 Rate Blood Pressure 142/52 167/71 O2 Sat by Pulse 97 100 Oximetry O2 Sat by Pulse 100 Oximetry [ Assessment] 06/17/21 06/17/21 06/17/21 08:00 08:18 08:30 Temperature Pulse Rate 93 H 79 Pulse Rate [ From Monitor] Respiratory 17 25 H 23 Rate Blood Pressure 167/71 152/58 O2 Sat by Pulse 96 100 100 Oximetry O2 Sat by Pulse Oximetry [ Assessment] 06/17/21 06/17/21 06/17/21 09:00 09:30 10:00 Temperature Pulse Rate 87 78 84 Pulse Rate [ From Monitor] Respiratory 31 H 23 25 H Rate Blood Pressure 164/61 154/60 167/64 O2 Sat by Pulse 100 98 98 Oximetry O2 Sat by Pulse Oximetry [ Assessment] 06/17/21 06/17/21 06/17/21 10:30 11:00 11:30 Temperature Pulse Rate 79 86 81 Pulse Rate [ From Monitor] Respiratory 24 26 H 24 Rate Blood Pressure 158/62 175/72 159/67 O2 Sat by Pulse 100 100 97 Oximetry O2 Sat by Pulse Oximetry [ Assessment] 06/17/21 06/17/21 06/17/21 11:37 11:38 12:00 Temperature 100.4 F H Pulse Rate 85 85 Pulse Rate [ From Monitor] Respiratory Rate Blood Pressure 159/67 159/67 O2 Sat by Pulse Oximetry O2 Sat by Pulse Oximetry [ Assessment] 06/17/21 13:33 Temperature Pulse Rate 75 Pulse Rate [ From Monitor] Respiratory 23 Rate Blood Pressure 151/64 O2 Sat by Pulse 96 Oximetry O2 Sat by Pulse Oximetry [ Assessment] Constitutional: appears uncomfortable, other (elderly female with mildly increased respiratory effort at rest on MVS) Eyes: non-icteric ENT: oropharynx moist, other (+ midline tracheostomy with mild secretions) Neck: supple, no lymphadenopathy Effort: mildly labored Ascultation: Bilateral: diminished breath sounds, rhonchi (scant) Percussion: Bilateral: not dull Cardiovascular: regular rate and rhythm, other (S1,S2) Gastrointestinal: normoactive bowel sounds, soft, non-tender, non-distended (protuberant), other (+ PEG tube) Integumentary: normal Extremities: no cyanosis, pulses normal, no ischemia or petechiae, other (Right femoral CVL) Neurologic: pupils equal and round, unable to assess, other (encephalopathic) Psychiatric: other (unable to assess) CBC and BMP: 06/18/21 06:20 06/16/21 18:51 ABG, PT/INR, D-dimer: ABG ABG pH 7.471 (7.320-7.450) H 06/15/21 10:19 POC ABG pCO2 40.4 mmHg (32.0-48.0) 06/15/21 10:19 ABG pCO2 30.3 mm Hg 05/29/21 05:28 POC ABG pO2 90.1 mmHg (83-108) 10/07/21 10:19 ABG pO2 96.2 mm Hg (80.0-90.0) H 05/29/21 05:28 POC ABG HCO3 28.8 06/15/21 10:19 ABG O2 Saturation 97.4 (0-100) 06/15/21 10:19 PT/INR, D-dimer PT 14.5 Sec. (12.2-14.9) 06/16/21 18:51 INR 1.08 (0.87-1.13) 06/16/21 18:51 D-Dimer > 92829 ng/mlDDU (0-234) H 05/25/21 09:21 Abnormal lab findings: Abnormal Labs 05/25/21 05/25/21 05/25/21 09:07 09:21 09:21 WBC 17.1 H RBC Hgb Hct MCV 106 H MCH 33 H MCHC RDW 15.6 H [place] # (Auto) Seg Neutrophils % Seg Neuts % (Manual) Lymphocytes % (Manual) Monocytes % (Manual) Seg Neutrophils # Seg Neutrophils # Man 10.1 H Lymphocytes # (Manual) 5.6 H Monocytes # (Manual) PT 15.0 H APTT 44.3 H D-Dimer > 23891 H Heparin Anti-Xa Level ABG pH 7.116 L POC ABG pCO2 POC ABG pO2 ABG pO2 ABG Hemoglobin ABG Oxyhemoglobin 93.7 L ABG Sodium ABG Potassium ABG Chloride ABG Glucose 395 H Carboxyhemoglobin Sodium Potassium Chloride Carbon Dioxide BUN Creatinine Glucose POC Glucose Lactic Acid Calcium Phosphorus Magnesium Ferritin AST ALT Alkaline Phosphatase Lactate Dehydrogenase Troponin T C-Reactive Protein Total Protein Albumin HDL Cholesterol Arterial Blood Glucose 395 H Arterial Blood Ionized Calcium 4.4 L Urine WBC (Auto) Urine Creatinine 05/25/21 05/25/21 05/25/21 09:21 09:21 09:21 WBC RBC Hgb Hct MCV MCH MCHC RDW [place] # (Auto) Seg Neutrophils % Seg Neuts % (Manual) Lymphocytes % (Manual) Monocytes % (Manual) Seg Neutrophils # Seg Neutrophils # Man Lymphocytes # (Manual) Monocytes # (Manual) PT APTT D-Dimer Heparin Anti-Xa Level ABG pH POC ABG pCO2 POC ABG pO2 ABG pO2 ABG Hemoglobin ABG Oxyhemoglobin ABG Sodium ABG Potassium ABG Chloride ABG Glucose Carboxyhemoglobin Sodium Potassium Chloride Carbon Dioxide 10 L BUN Creatinine Glucose 423 H 424 H POC Glucose Lactic Acid Calcium 8.2 L Phosphorus Magnesium Ferritin 321.6 H AST 162 H ALT 119 H Alkaline Phosphatase Lactate Dehydrogenase 445 H Troponin T C-Reactive Protein Total Protein 5.6 L Albumin 3.2 L HDL Cholesterol Arterial Blood Glucose Arterial Blood Ionized Calcium Urine WBC (Auto) Urine Creatinine 05/25/21 05/25/21 05/25/21 09:35 10:42 11:12 WBC RBC Hgb Hct MCV MCH MCHC RDW [place] # (Auto) Seg Neutrophils % Seg Neuts % (Manual) Lymphocytes % (Manual) Monocytes % (Manual) Seg Neutrophils # Seg Neutrophils # Man Lymphocytes # (Manual) Monocytes # (Manual) PT APTT D-Dimer Heparin Anti-Xa Level ABG pH POC ABG pCO2 POC ABG pO2 ABG pO2 ABG Hemoglobin ABG Oxyhemoglobin ABG Sodium ABG Potassium ABG Chloride ABG Glucose Carboxyhemoglobin Sodium Potassium Chloride Carbon Dioxide BUN Creatinine Glucose POC Glucose Lactic Acid 16.70 H* 7.70 H* Calcium Phosphorus Magnesium Ferritin AST ALT Alkaline Phosphatase Lactate Dehydrogenase Troponin T C-Reactive Protein Total Protein Albumin HDL Cholesterol Arterial Blood Glucose Arterial Blood Ionized Calcium Urine WBC (Auto) 11.0 H Urine Creatinine 05/25/21 05/25/21 05/25/21 14:07 15:19 19:04 WBC RBC Hgb Hct MCV MCH MCHC RDW [place] # (Auto) Seg Neutrophils % Seg Neuts % (Manual) Lymphocytes % (Manual) Monocytes % (Manual) Seg Neutrophils # Seg Neutrophils # Man Lymphocytes # (Manual) Monocytes # (Manual) PT APTT D-Dimer Heparin Anti-Xa Level ABG pH POC ABG pCO2 POC ABG pO2 172.2 H ABG pO2 ABG Hemoglobin ABG Oxyhemoglobin 98.7 H ABG Sodium 135.7 L ABG Potassium ABG Chloride ABG Glucose 255 H Carboxyhemoglobin 0.3 L Sodium Potassium Chloride Carbon Dioxide BUN Creatinine Glucose POC Glucose Lactic Acid 3.90 H* Calcium Phosphorus Magnesium Ferritin AST ALT Alkaline Phosphatase Lactate Dehydrogenase Troponin T 0.226 H* D C-Reactive Protein Total Protein Albumin HDL Cholesterol 64 H Arterial Blood Glucose 255 H Arterial Blood Ionized Calcium 3.8 L Urine WBC (Auto) Urine Creatinine 05/25/21 05/25/21 05/26/21 21:16 21:16 04:00 WBC RBC Hgb Hct MCV MCH MCHC RDW [place] # (Auto) Seg Neutrophils % Seg Neuts % (Manual) Lymphocytes % (Manual) Monocytes % (Manual) Seg Neutrophils # Seg Neutrophils # Man Lymphocytes # (Manual) Monocytes # (Manual) PT APTT D-Dimer Heparin Anti-Xa Level 1.19 H ABG pH 7.547 H POC ABG pCO2 POC ABG pO2 ABG pO2 ABG Hemoglobin 11.9 L ABG Oxyhemoglobin ABG Sodium 133.2 L ABG Potassium 3.1 L ABG Chloride ABG Glucose 243 H Carboxyhemoglobin 0.3 L Sodium Potassium Chloride Carbon Dioxide BUN Creatinine Glucose POC Glucose Lactic Acid 2.50 H* Calcium Phosphorus Magnesium Ferritin AST ALT Alkaline Phosphatase Lactate Dehydrogenase Troponin T C-Reactive Protein Total Protein Albumin HDL Cholesterol Arterial Blood Glucose 243 H Arterial Blood Ionized Calcium Urine WBC (Auto) Urine Creatinine 05/26/21 05/26/21 05/26/21 05:49 05:49 17:33 WBC RBC Hgb Hct MCV MCH MCHC RDW [place] # (Auto) Seg Neutrophils % Seg Neuts % (Manual) Lymphocytes % (Manual) Monocytes % (Manual) Seg Neutrophils # Seg Neutrophils # Man Lymphocytes # (Manual) Monocytes # (Manual) PT APTT D-Dimer Heparin Anti-Xa Level ABG pH POC ABG pCO2 POC ABG pO2 ABG pO2 ABG Hemoglobin ABG Oxyhemoglobin ABG Sodium ABG Potassium ABG Chloride ABG Glucose Carboxyhemoglobin Sodium Potassium Chloride Carbon Dioxide BUN Creatinine Glucose 226 H POC Glucose 156 H Lactic Acid 2.30 H* Calcium 7.2 L Phosphorus Magnesium Ferritin AST 111 H ALT 97 H Alkaline Phosphatase Lactate Dehydrogenase Troponin T C-Reactive Protein Total Protein 5.4 L Albumin 3.3 L HDL Cholesterol Arterial Blood Glucose Arterial Blood Ionized Calcium Urine WBC (Auto) Urine Creatinine 05/27/21 05/27/21 05/27/21 02:11 02:11 02:11 WBC 14.3 H RBC 3.27 L Hgb Hct MCV 99 H MCH 33 H MCHC RDW 15.3 H [place] # (Auto) 1.0 H Seg Neutrophils % Seg Neuts % (Manual) Lymphocytes % (Manual) Monocytes % (Manual) Seg Neutrophils # 10.0 H Seg Neutrophils # Man Lymphocytes # (Manual) Monocytes # (Manual) PT APTT D-Dimer Heparin Anti-Xa Level 0.80 H ABG pH POC ABG pCO2 POC ABG pO2 ABG pO2 ABG Hemoglobin ABG Oxyhemoglobin ABG Sodium ABG Potassium ABG Chloride ABG Glucose Carboxyhemoglobin Sodium Potassium 2.9 L* D Chloride Carbon Dioxide 31 H BUN 6 L Creatinine Glucose 215 H POC Glucose Lactic Acid Calcium 8.1 L Phosphorus Magnesium Ferritin AST ALT Alkaline Phosphatase Lactate Dehydrogenase Troponin T C-Reactive Protein Total Protein Albumin HDL Cholesterol Arterial Blood Glucose Arterial Blood Ionized Calcium Urine WBC (Auto) Urine Creatinine 05/27/21 05/27/21 05/27/21 11:24 12:49 18:06 WBC RBC Hgb Hct MCV MCH MCHC RDW [place] # (Auto) Seg Neutrophils % Seg Neuts % (Manual) Lymphocytes % (Manual) Monocytes % (Manual) Seg Neutrophils # Seg Neutrophils # Man Lymphocytes # (Manual) Monocytes # (Manual) PT APTT D-Dimer Heparin Anti-Xa Level ABG pH POC ABG pCO2 POC ABG pO2 ABG pO2 ABG Hemoglobin ABG Oxyhemoglobin ABG Sodium ABG Potassium ABG Chloride ABG Glucose Carboxyhemoglobin Sodium Potassium Chloride Carbon Dioxide BUN Creatinine Glucose POC Glucose 151 H 165 H 137 H Lactic Acid Calcium Phosphorus Magnesium Ferritin AST ALT Alkaline Phosphatase Lactate Dehydrogenase Troponin T C-Reactive Protein Total Protein Albumin HDL Cholesterol Arterial Blood Glucose Arterial Blood Ionized Calcium Urine WBC (Auto) Urine Creatinine 05/28/21 05/28/21 05/28/21 04:00 04:00 06:02 WBC 13.5 H RBC 3.05 L Hgb Hct MCV 100 H MCH 34 H MCHC RDW [place] # (Auto) 0.9 H Seg Neutrophils % 78.2 H Seg Neuts % (Manual) Lymphocytes % (Manual) Monocytes % (Manual) Seg Neutrophils # 10.6 H Seg Neutrophils # Man Lymphocytes # (Manual) Monocytes # (Manual) PT APTT D-Dimer Heparin Anti-Xa Level ABG pH 7.507 H POC ABG pCO2 POC ABG pO2 ABG pO2 ABG Hemoglobin 10.6 L ABG Oxyhemoglobin ABG Sodium 129.4 L ABG Potassium ABG Chloride ABG Glucose 243 H Carboxyhemoglobin 0.2 L Sodium 136 L D Potassium Chloride Carbon Dioxide BUN Creatinine Glucose 215 H POC Glucose Lactic Acid Calcium Phosphorus Magnesium Ferritin AST ALT Alkaline Phosphatase Lactate Dehydrogenase Troponin T C-Reactive Protein Total Protein Albumin HDL Cholesterol Arterial Blood Glucose 243 H Arterial Blood Ionized Calcium 4.1 L Urine WBC (Auto) Urine Creatinine 05/28/21 05/28/21 05/29/21 11:27 23:02 04:30 WBC RBC Hgb 9.3 L Hct 26.7 L MCV MCH MCHC RDW [place] # (Auto) Seg Neutrophils % Seg Neuts % (Manual) Lymphocytes % (Manual) Monocytes % (Manual) Seg Neutrophils # Seg Neutrophils # Man Lymphocytes # (Manual) Monocytes # (Manual) PT APTT D-Dimer Heparin Anti-Xa Level ABG pH POC ABG pCO2 POC ABG pO2 ABG pO2 ABG Hemoglobin ABG Oxyhemoglobin ABG Sodium ABG Potassium ABG Chloride ABG Glucose Carboxyhemoglobin Sodium Potassium Chloride Carbon Dioxide BUN Creatinine Glucose POC Glucose 220 H 212 H Lactic Acid Calcium Phosphorus Magnesium Ferritin AST ALT Alkaline Phosphatase Lactate Dehydrogenase Troponin T C-Reactive Protein Total Protein Albumin HDL Cholesterol Arterial Blood Glucose Arterial Blood Ionized Calcium Urine WBC (Auto) Urine Creatinine 05/29/21 05/29/21 05/29/21 05:02 05:28 12:55 WBC RBC Hgb Hct MCV MCH MCHC RDW [place] # (Auto) Seg Neutrophils % Seg Neuts % (Manual) Lymphocytes % (Manual) Monocytes % (Manual) Seg Neutrophils # Seg Neutrophils # Man Lymphocytes # (Manual) Monocytes # (Manual) PT APTT D-Dimer Heparin Anti-Xa Level ABG pH 7.516 H POC ABG pCO2 POC ABG pO2 ABG pO2 96.2 H ABG Hemoglobin 7.5 L ABG Oxyhemoglobin ABG Sodium ABG Potassium ABG Chloride ABG Glucose Carboxyhemoglobin Sodium Potassium Chloride Carbon Dioxide BUN Creatinine Glucose POC Glucose 197 H 251 H Lactic Acid Calcium Phosphorus Magnesium Ferritin AST ALT Alkaline Phosphatase Lactate Dehydrogenase Troponin T C-Reactive Protein Total Protein Albumin HDL Cholesterol Arterial Blood Glucose Arterial Blood Ionized Calcium Urine WBC (Auto) Urine Creatinine 05/29/21 05/29/21 05/30/21 18:23 23:31 04:10 WBC RBC Hgb Hct MCV MCH MCHC RDW [place] # (Auto) Seg Neutrophils % Seg Neuts % (Manual) Lymphocytes % (Manual) Monocytes % (Manual) Seg Neutrophils # Seg Neutrophils # Man Lymphocytes # (Manual) Monocytes # (Manual) PT APTT D-Dimer Heparin Anti-Xa Level ABG pH 7.532 H POC ABG pCO2 30.0 L POC ABG pO2 78.5 L ABG pO2 ABG Hemoglobin 11.3 L ABG Oxyhemoglobin ABG Sodium 126.7 L ABG Potassium ABG Chloride 94.0 L ABG Glucose 270 H Carboxyhemoglobin 0.4 L Sodium Potassium Chloride Carbon Dioxide BUN Creatinine Glucose POC Glucose 236 H 252 H Lactic Acid Calcium Phosphorus Magnesium Ferritin AST ALT Alkaline Phosphatase Lactate Dehydrogenase Troponin T C-Reactive Protein Total Protein Albumin HDL Cholesterol Arterial Blood Glucose 270 H Arterial Blood Ionized Calcium 4.4 L Urine WBC (Auto) Urine Creatinine 05/30/21 05/30/21 05/30/21 05:06 06:23 11:15 WBC RBC Hgb Hct MCV MCH MCHC RDW [place] # (Auto) Seg Neutrophils % Seg Neuts % (Manual) Lymphocytes % (Manual) Monocytes % (Manual) Seg Neutrophils # Seg Neutrophils # Man Lymphocytes # (Manual) Monocytes # (Manual) PT APTT D-Dimer Heparin Anti-Xa Level ABG pH POC ABG pCO2 POC ABG pO2 ABG pO2 ABG Hemoglobin ABG Oxyhemoglobin ABG Sodium ABG Potassium ABG Chloride ABG Glucose Carboxyhemoglobin Sodium 126 L D Potassium Chloride 91.9 L Carbon Dioxide 20 L D BUN Creatinine 0.4 L Glucose 274 H POC Glucose 242 H 346 H Lactic Acid Calcium Phosphorus Magnesium Ferritin AST ALT Alkaline Phosphatase Lactate Dehydrogenase Troponin T C-Reactive Protein Total Protein Albumin HDL Cholesterol Arterial Blood Glucose Arterial Blood Ionized Calcium Urine WBC (Auto) Urine Creatinine 05/30/21 05/30/21 05/30/21 11:19 11:19 11:19 WBC 18.9 H RBC 3.36 L Hgb Hct MCV 102 H MCH 33 H MCHC RDW 15.5 H [place] # (Auto) Seg Neutrophils % Seg Neuts % (Manual) Lymphocytes % (Manual) Monocytes % (Manual) Seg Neutrophils # Seg Neutrophils # Man Lymphocytes # (Manual) Monocytes # (Manual) PT APTT D-Dimer Heparin Anti-Xa Level < 0.10 L ABG pH POC ABG pCO2 POC ABG pO2 ABG pO2 ABG Hemoglobin ABG Oxyhemoglobin ABG Sodium ABG Potassium ABG Chloride ABG Glucose Carboxyhemoglobin Sodium 124 L Potassium Chloride Carbon Dioxide BUN Creatinine Glucose POC Glucose Lactic Acid Calcium Phosphorus Magnesium Ferritin AST ALT Alkaline Phosphatase Lactate Dehydrogenase Troponin T C-Reactive Protein Total Protein Albumin HDL Cholesterol Arterial Blood Glucose Arterial Blood Ionized Calcium Urine WBC (Auto) Urine Creatinine 05/30/21 05/30/21 05/31/21 17:02 23:27 03:37 WBC RBC Hgb Hct MCV MCH MCHC RDW [place] # (Auto) Seg Neutrophils % Seg Neuts % (Manual) Lymphocytes % (Manual) Monocytes % (Manual) Seg Neutrophils # Seg Neutrophils # Man Lymphocytes # (Manual) Monocytes # (Manual) PT APTT D-Dimer Heparin Anti-Xa Level ABG pH POC ABG pCO2 POC ABG pO2 ABG pO2 ABG Hemoglobin 11.6 L ABG Oxyhemoglobin ABG Sodium 130.0 L ABG Potassium ABG Chloride 95.0 L ABG Glucose 292 H Carboxyhemoglobin Sodium Potassium Chloride Carbon Dioxide BUN Creatinine Glucose POC Glucose 270 H 237 H Lactic Acid Calcium Phosphorus Magnesium Ferritin AST ALT Alkaline Phosphatase Lactate Dehydrogenase Troponin T C-Reactive Protein Total Protein Albumin HDL Cholesterol Arterial Blood Glucose 292 H Arterial Blood Ionized Calcium Urine WBC (Auto) Urine Creatinine 05/31/21 05/31/21 05/31/21 04:00 04:00 05:20 WBC 20.9 H RBC 3.13 L Hgb Hct MCV 99 H MCH 34 H MCHC RDW [place] # (Auto) Seg Neutrophils % Seg Neuts % (Manual) 81.0 H Lymphocytes % (Manual) 8.0 L Monocytes % (Manual) 9.0 H Seg Neutrophils # Seg Neutrophils # Man 16.9 H Lymphocytes # (Manual) Monocytes # (Manual) 1.9 H PT APTT D-Dimer Heparin Anti-Xa Level ABG pH POC ABG pCO2 POC ABG pO2 ABG pO2 ABG Hemoglobin ABG Oxyhemoglobin ABG Sodium ABG Potassium ABG Chloride ABG Glucose Carboxyhemoglobin Sodium 133 L D Potassium Chloride 95.4 L Carbon Dioxide 21 L BUN 30 H Creatinine 0.5 L Glucose 305 H POC Glucose 269 H Lactic Acid Calcium Phosphorus Magnesium Ferritin AST ALT Alkaline Phosphatase Lactate Dehydrogenase Troponin T C-Reactive Protein Total Protein Albumin HDL Cholesterol Arterial Blood Glucose Arterial Blood Ionized Calcium Urine WBC (Auto) Urine Creatinine 05/31/21 05/31/21 05/31/21 11:40 18:16 23:25 WBC RBC Hgb Hct MCV MCH MCHC RDW [place] # (Auto) Seg Neutrophils % Seg Neuts % (Manual) Lymphocytes % (Manual) Monocytes % (Manual) Seg Neutrophils # Seg Neutrophils # Man Lymphocytes # (Manual) Monocytes # (Manual) PT APTT D-Dimer Heparin Anti-Xa Level ABG pH POC ABG pCO2 POC ABG pO2 ABG pO2 ABG Hemoglobin ABG Oxyhemoglobin ABG Sodium ABG Potassium ABG Chloride ABG Glucose Carboxyhemoglobin Sodium Potassium Chloride Carbon Dioxide BUN Creatinine Glucose POC Glucose 364 H 250 H 231 H Lactic Acid Calcium Phosphorus Magnesium Ferritin AST ALT Alkaline Phosphatase Lactate Dehydrogenase Troponin T C-Reactive Protein Total Protein Albumin HDL Cholesterol Arterial Blood Glucose Arterial Blood Ionized Calcium Urine WBC (Auto) Urine Creatinine 06/01/21 06/01/21 06/01/21 04:03 04:58 04:58 WBC 20.7 H RBC 3.20 L Hgb Hct MCV 99 H MCH 34 H MCHC RDW [place] # (Auto) Seg Neutrophils % Seg Neuts % (Manual) 82.0 H Lymphocytes % (Manual) 9.0 L Monocytes % (Manual) Seg Neutrophils # Seg Neutrophils # Man 17.0 H Lymphocytes # (Manual) Monocytes # (Manual) 1.4 H PT APTT D-Dimer Heparin Anti-Xa Level 1.18 H ABG pH 7.520 H POC ABG pCO2 POC ABG pO2 66.0 L ABG pO2 ABG Hemoglobin ABG Oxyhemoglobin 92.5 L ABG Sodium 133.6 L ABG Potassium ABG Chloride ABG Glucose 250 H Carboxyhemoglobin Sodium Potassium Chloride Carbon Dioxide BUN Creatinine Glucose POC Glucose Lactic Acid Calcium Phosphorus Magnesium Ferritin AST ALT Alkaline Phosphatase Lactate Dehydrogenase Troponin T C-Reactive Protein Total Protein Albumin HDL Cholesterol Arterial Blood Glucose 250 H Arterial Blood Ionized Calcium 4.4 L Urine WBC (Auto) Urine Creatinine 06/01/21 06/01/21 06/01/21 04:58 05:29 11:39 WBC RBC Hgb Hct MCV MCH MCHC RDW [place] # (Auto) Seg Neutrophils % Seg Neuts % (Manual) Lymphocytes % (Manual) Monocytes % (Manual) Seg Neutrophils # Seg Neutrophils # Man Lymphocytes # (Manual) Monocytes # (Manual) PT APTT D-Dimer Heparin Anti-Xa Level ABG pH POC ABG pCO2 POC ABG pO2 ABG pO2 ABG Hemoglobin ABG Oxyhemoglobin ABG Sodium ABG Potassium ABG Chloride ABG Glucose Carboxyhemoglobin Sodium 131 L Potassium Chloride 95.7 L Carbon Dioxide BUN 30 H Creatinine 0.5 L Glucose 241 H POC Glucose 215 H 299 H Lactic Acid Calcium Phosphorus Magnesium Ferritin AST ALT Alkaline Phosphatase Lactate Dehydrogenase Troponin T C-Reactive Protein Total Protein Albumin HDL Cholesterol Arterial Blood Glucose Arterial Blood Ionized Calcium Urine WBC (Auto) Urine Creatinine 06/01/21 06/02/21 06/02/21 18:14 00:12 02:25 WBC 17.4 H RBC 3.09 L Hgb Hct MCV 101 H MCH 34 H MCHC RDW 15.5 H [place] # (Auto) Seg Neutrophils % Seg Neuts % (Manual) Lymphocytes % (Manual) Monocytes % (Manual) Seg Neutrophils # Seg Neutrophils # Man Lymphocytes # (Manual) Monocytes # (Manual) PT APTT D-Dimer Heparin Anti-Xa Level ABG pH POC ABG pCO2 POC ABG pO2 ABG pO2 ABG Hemoglobin ABG Oxyhemoglobin ABG Sodium ABG Potassium ABG Chloride ABG Glucose Carboxyhemoglobin Sodium Potassium Chloride Carbon Dioxide BUN Creatinine Glucose POC Glucose 215 H 175 H Lactic Acid Calcium Phosphorus Magnesium Ferritin AST ALT Alkaline Phosphatase Lactate Dehydrogenase Troponin T C-Reactive Protein Total Protein Albumin HDL Cholesterol Arterial Blood Glucose Arterial Blood Ionized Calcium Urine WBC (Auto) Urine Creatinine 06/02/21 06/02/21 06/02/21 02:25 04:13 04:58 WBC RBC Hgb Hct MCV MCH MCHC RDW [place] # (Auto) Seg Neutrophils % Seg Neuts % (Manual) Lymphocytes % (Manual) Monocytes % (Manual) Seg Neutrophils # Seg Neutrophils # Man Lymphocytes # (Manual) Monocytes # (Manual) PT APTT D-Dimer Heparin Anti-Xa Level ABG pH 7.481 H POC ABG pCO2 POC ABG pO2 80.0 L ABG pO2 ABG Hemoglobin 11.1 L ABG Oxyhemoglobin ABG Sodium 131.9 L ABG Potassium ABG Chloride ABG Glucose 231 H Carboxyhemoglobin 0.2 L Sodium 134 L Potassium Chloride 95.8 L Carbon Dioxide BUN 31 H Creatinine 0.5 L Glucose 168 H POC Glucose 230 H Lactic Acid Calcium Phosphorus Magnesium Ferritin AST ALT Alkaline Phosphatase Lactate Dehydrogenase Troponin T C-Reactive Protein Total Protein Albumin HDL Cholesterol Arterial Blood Glucose 231 H Arterial Blood Ionized Calcium Urine WBC (Auto) Urine Creatinine 06/02/21 06/02/21 06/02/21 11:27 17:47 23:53 WBC RBC Hgb Hct MCV MCH MCHC RDW [place] # (Auto) Seg Neutrophils % Seg Neuts % (Manual) Lymphocytes % (Manual) Monocytes % (Manual) Seg Neutrophils # Seg Neutrophils # Man Lymphocytes # (Manual) Monocytes # (Manual) PT APTT D-Dimer Heparin Anti-Xa Level 0.80 H ABG pH POC ABG pCO2 POC ABG pO2 ABG pO2 ABG Hemoglobin ABG Oxyhemoglobin ABG Sodium ABG Potassium ABG Chloride ABG Glucose Carboxyhemoglobin Sodium Potassium Chloride Carbon Dioxide BUN Creatinine Glucose POC Glucose 259 H 297 H Lactic Acid Calcium Phosphorus Magnesium Ferritin AST ALT Alkaline Phosphatase Lactate Dehydrogenase Troponin T C-Reactive Protein Total Protein Albumin HDL Cholesterol Arterial Blood Glucose Arterial Blood Ionized Calcium Urine WBC (Auto) Urine Creatinine 06/03/21 06/03/21 06/03/21 00:05 05:23 09:10 WBC RBC Hgb Hct MCV MCH MCHC R[place] # (Auto) Seg Neutrophils % Seg Neuts % (Manual) Lymphocytes % (Manual) Monocytes % (Manual) Seg Neutrophils # Seg Neutrophils # Man Lymphocytes # (Manual) Monocytes # (Manual) PT APTT D-Dimer Heparin Anti-Xa Level 0.84 H ABG pH POC ABG pCO2 POC ABG pO2 ABG pO2 ABG Hemoglobin ABG Oxyhemoglobin ABG Sodium ABG Potassium ABG Chloride ABG Glucose Carboxyhemoglobin Sodium Potassium Chloride Carbon Dioxide BUN Creatinine Glucose POC Glucose 268 H 170 H Lactic Acid Calcium Phosphorus Magnesium Ferritin AST ALT Alkaline Phosphatase Lactate Dehydrogenase Troponin T C-Reactive Protein Total Protein Albumin HDL Cholesterol Arterial Blood Glucose Arterial Blood Ionized Calcium Urine WBC (Auto) Urine Creatinine 06/03/21 06/03/21 06/03/21 12:06 20:22 23:30 WBC RBC Hgb Hct MCV MCH MCHC [place] # (Auto) Seg Neutrophils % Seg Neuts % (Manual) Lymphocytes % (Manual) Monocytes % (Manual) Seg Neutrophils # Seg Neutrophils # Man Lymphocytes # (Manual) Monocytes # (Manual) PT APTT D-Dimer Heparin Anti-Xa Level ABG pH POC ABG pCO2 POC ABG pO2 ABG pO2 ABG Hemoglobin ABG Oxyhemoglobin ABG Sodium ABG Potassium ABG Chloride ABG Glucose Carboxyhemoglobin Sodium Potassium Chloride Carbon Dioxide BUN Creatinine Glucose POC Glucose 275 H 260 H 215 H Lactic Acid Calcium Phosphorus Magnesium Ferritin AST ALT Alkaline Phosphatase Lactate Dehydrogenase Troponin T C-Reactive Protein Total Protein Albumin HDL Cholesterol Arterial Blood Glucose Arterial Blood Ionized Calcium Urine WBC (Auto) Urine Creatinine 06/04/21 06/04/21 06/04/21 05:03 05:57 05:57 WBC 17.8 H RBC 2.83 L Hgb 9.6 L Hct 28.4 L MCV 100 H MCH 34 H MCHC RDW 15.5 H [place] # (Auto) Seg Neutrophils % Seg Neuts % (Manual) 83.0 H Lymphocytes % (Manual) 4.0 L Monocytes % (Manual) Seg Neutrophils # Seg Neutrophils # Man 14.8 H Lymphocytes # (Manual) 0.7 L Monocytes # (Manual) 1.1 H PT APTT D-Dimer Heparin Anti-Xa Level ABG pH POC ABG pCO2 POC ABG pO2 ABG pO2 ABG Hemoglobin ABG Oxyhemoglobin ABG Sodium ABG Potassium ABG Chloride ABG Glucose Carboxyhemoglobin Sodium 135 L Potassium Chloride 96.3 L Carbon Dioxide BUN 51 H Creatinine Glucose 275 H POC Glucose 257 H Lactic Acid Calcium Phosphorus Magnesium Ferritin AST ALT Alkaline Phosphatase Lactate Dehydrogenase Troponin T C-Reactive Protein Total Protein Albumin HDL Cholesterol Arterial Blood Glucose Arterial Blood Ionized Calcium Urine WBC (Auto) Urine Creatinine 06/04/21 06/04/21 06/04/21 09:48 11:08 17:33 WBC RBC Hgb Hct MCV MCH MCHC [place] # (Auto) Seg Neutrophils % Seg Neuts % (Manual) Lymphocytes % (Manual) Monocytes % (Manual) Seg Neutrophils # Seg Neutrophils # Man Lymphocytes # (Manual) Monocytes # (Manual) PT APTT D-Dimer Heparin Anti-Xa Level ABG pH POC ABG pCO2 POC ABG pO2 ABG pO2 ABG Hemoglobin ABG Oxyhemoglobin ABG Sodium ABG Potassium ABG Chloride ABG Glucose Carboxyhemoglobin Sodium Potassium Chloride Carbon Dioxide BUN Creatinine Glucose POC Glucose 198 H 234 H 247 H Lactic Acid Calcium Phosphorus Magnesium Ferritin AST ALT Alkaline Phosphatase Lactate Dehydrogenase Troponin T C-Reactive Protein Total Protein Albumin HDL Cholesterol Arterial Blood Glucose Arterial Blood Ionized Calcium Urine WBC (Auto) Urine Creatinine 06/04/21 06/05/21 06/05/21 23:30 05:38 11:24 WBC RBC Hgb Hct MCV MCH MCHC [place] # (Auto) Seg Neutrophils % Seg Neuts % (Manual) Lymphocytes % (Manual) Monocytes % (Manual) Seg Neutrophils # Seg Neutrophils # Man Lymphocytes # (Manual) Monocytes # (Manual) PT APTT D-Dimer Heparin Anti-Xa Level ABG pH POC ABG pCO2 POC ABG pO2 ABG pO2 ABG Hemoglobin ABG Oxyhemoglobin ABG Sodium ABG Potassium ABG Chloride ABG Glucose Carboxyhemoglobin Sodium Potassium Chloride Carbon Dioxide BUN Creatinine Glucose POC Glucose 192 H 192 H 287 H Lactic Acid Calcium Phosphorus Magnesium Ferritin AST ALT Alkaline Phosphatase Lactate Dehydrogenase Troponin T C-Reactive Protein Total Protein Albumin HDL Cholesterol Arterial Blood Glucose Arterial Blood Ionized Calcium Urine WBC (Auto) Urine Creatinine 06/05/21 06/05/21 06/05/21 12:20 12:20 12:20 WBC 16.2 H RBC 2.56 L Hgb 8.8 L Hct 25.2 L MCV 98 H MCH 35 H MCHC 35 H RDW 15.3 H [place] # (Auto) Seg Neutrophils % Seg Neuts % (Manual) Lymphocytes % (Manual) Monocytes % (Manual) Seg Neutrophils # Seg Neutrophils # Man Lymphocytes # (Manual) Monocytes # (Manual) PT APTT 72.2 H* D-Dimer Heparin Anti-Xa Level ABG pH POC ABG pCO2 POC ABG pO2 ABG pO2 ABG Hemoglobin ABG Oxyhemoglobin ABG Sodium ABG Potassium ABG Chloride ABG Glucose Carboxyhemoglobin Sodium 133 L Potassium Chloride 95.3 L Carbon Dioxide BUN 57 H Creatinine Glucose 313 H POC Glucose Lactic Acid Calcium Phosphorus Magnesium Ferritin AST 90 H ALT 79 H Alkaline Phosphatase 262 H Lactate Dehydrogenase Troponin T C-Reactive Protein Total Protein Albumin 2.7 L HDL Cholesterol Arterial Blood Glucose Arterial Blood Ionized Calcium Urine WBC (Auto) Urine Creatinine 06/05/21 06/05/21 06/05/21 17:50 22:57 23:36 WBC RBC Hgb Hct MCV MCH MCHC [place] # (Auto) Seg Neutrophils % Seg Neuts % (Manual) Lymphocytes % (Manual) Monocytes % (Manual) Seg Neutrophils # Seg Neutrophils # Man Lymphocytes # (Manual) Monocytes # (Manual) PT APTT D-Dimer Heparin Anti-Xa Level 0.28 L ABG pH POC ABG pCO2 POC ABG pO2 ABG pO2 ABG Hemoglobin ABG Oxyhemoglobin ABG Sodium ABG Potassium ABG Chloride ABG Glucose Carboxyhemoglobin Sodium Potassium Chloride Carbon Dioxide BUN Creatinine Glucose POC Glucose 275 H 223 H Lactic Acid Calcium Phosphorus Magnesium Ferritin AST ALT Alkaline Phosphatase Lactate Dehydrogenase Troponin T C-Reactive Protein Total Protein Albumin HDL Cholesterol Arterial Blood Glucose Arterial Blood Ionized Calcium Urine WBC (Auto) Urine Creatinine 06/06/21 06/06/21 06/06/21 04:57 04:57 05:02 WBC 15.7 H RBC 2.77 L Hgb 9.4 L Hct 27.2 L MCV 98 H MCH 34 H MCHC RDW 15.4 H [place] # (Auto) Seg Neutrophils % Seg Neuts % (Manual) Lymphocytes % (Manual) Monocytes % (Manual) Seg Neutrophils # Seg Neutrophils # Man Lymphocytes # (Manual) Monocytes # (Manual) PT APTT D-Dimer Heparin Anti-Xa Level ABG pH POC ABG pCO2 POC ABG pO2 ABG pO2 ABG Hemoglobin ABG Oxyhemoglobin ABG Sodium ABG Potassium ABG Chloride ABG Glucose Carboxyhemoglobin Sodium Potassium 5.7 H Chloride Carbon Dioxide BUN 57 H Creatinine Glucose 245 H POC Glucose 217 H Lactic Acid Calcium Phosphorus Magnesium Ferritin AST 99 H ALT 136 H Alkaline Phosphatase 312 H Lactate Dehydrogenase Troponin T C-Reactive Protein Total Protein 6.1 L Albumin 3.1 L HDL Cholesterol Arterial Blood Glucose Arterial Blood Ionized Calcium Urine WBC (Auto) Urine Creatinine 06/06/21 06/06/21 06/06/21 11:37 17:34 18:09 WBC RBC Hgb Hct MCV MCH MCHC R[place] # (Auto) Seg Neutrophils % Seg Neuts % (Manual) Lymphocytes % (Manual) Monocytes % (Manual) Seg Neutrophils # Seg Neutrophils # Man Lymphocytes # (Manual) Monocytes # (Manual) PT APTT D-Dimer Heparin Anti-Xa Level ABG pH POC ABG pCO2 POC ABG pO2 ABG pO2 ABG Hemoglobin ABG Oxyhemoglobin ABG Sodium ABG Potassium ABG Chloride ABG Glucose Carboxyhemoglobin Sodium Potassium 5.2 H Chloride Carbon Dioxide BUN 48 H Creatinine Glucose 245 H POC Glucose 251 H 217 H Lactic Acid Calcium Phosphorus Magnesium Ferritin AST ALT Alkaline Phosphatase Lactate Dehydrogenase Troponin T C-Reactive Protein Total Protein Albumin HDL Cholesterol Arterial Blood Glucose Arterial Blood Ionized Calcium Urine WBC (Auto) Urine Creatinine 06/06/21 06/07/21 06/07/21 23:53 04:45 04:45 WBC 21.5 H RBC 2.71 L Hgb 9.0 L Hct 26.9 L MCV 99 H MCH 33 H MCHC RDW 15.3 H [place] # (Auto) Seg Neutrophils % Seg Neuts % (Manual) Lymphocytes % (Manual) Monocytes % (Manual) Seg Neutrophils # Seg Neutrophils # Man Lymphocytes # (Manual) Monocytes # (Manual) PT APTT D-Dimer Heparin Anti-Xa Level 0.10 L ABG pH POC ABG pCO2 POC ABG pO2 ABG pO2 ABG Hemoglobin ABG Oxyhemoglobin ABG Sodium ABG Potassium ABG Chloride ABG Glucose Carboxyhemoglobin Sodium Potassium Chloride Carbon Dioxide BUN Creatinine Glucose POC Glucose 224 H Lactic Acid Calcium Phosphorus Magnesium Ferritin AST ALT Alkaline Phosphatase Lactate Dehydrogenase Troponin T C-Reactive Protein Total Protein Albumin HDL Cholesterol Arterial Blood Glucose Arterial Blood Ionized Calcium Urine WBC (Auto) Urine Creatinine 06/07/21 06/07/21 06/07/21 04:45 05:11 11:50 WBC RBC Hgb Hct MCV MCH MCHC R[place] # (Auto) Seg Neutrophils % Seg Neuts % (Manual) Lymphocytes % (Manual) Monocytes % (Manual) Seg Neutrophils # Seg Neutrophils # Man Lymphocytes # (Manual) Monocytes # (Manual) PT APTT D-Dimer Heparin Anti-Xa Level ABG pH POC ABG pCO2 POC ABG pO2 ABG pO2 ABG Hemoglobin ABG Oxyhemoglobin ABG Sodium ABG Potassium ABG Chloride ABG Glucose Carboxyhemoglobin Sodium Potassium 5.4 H Chloride Carbon Dioxide BUN 55 H Creatinine Glucose 178 H POC Glucose 156 H 118 H Lactic Acid Calcium Phosphorus Magnesium Ferritin AST ALT Alkaline Phosphatase Lactate Dehydrogenase Troponin T C-Reactive Protein Total Protein Albumin HDL Cholesterol Arterial Blood Glucose Arterial Blood Ionized Calcium Urine WBC (Auto) Urine Creatinine 06/07/21 06/07/21 06/07/21 14:52 17:45 20:43 WBC RBC Hgb Hct MCV MCH MCHC [place] # (Auto) Seg Neutrophils % Seg Neuts % (Manual) Lymphocytes % (Manual) Monocytes % (Manual) Seg Neutrophils # Seg Neutrophils # Man Lymphocytes # (Manual) Monocytes # (Manual) PT APTT D-Dimer Heparin Anti-Xa Level 0.73 H ABG pH POC ABG pCO2 POC ABG pO2 ABG pO2 ABG Hemoglobin ABG Oxyhemoglobin ABG Sodium ABG Potassium ABG Chloride ABG Glucose Carboxyhemoglobin Sodium Potassium Chloride Carbon Dioxide BUN Creatinine Glucose POC Glucose 164 H Lactic Acid Calcium Phosphorus Magnesium Ferritin AST ALT Alkaline Phosphatase Lactate Dehydrogenase Troponin T C-Reactive Protein 28.90 H Total Protein Albumin HDL Cholesterol Arterial Blood Glucose Arterial Blood Ionized Calcium Urine WBC (Auto) Urine Creatinine 06/07/21 06/08/21 06/08/21 23:15 04:25 04:25 WBC 15.8 H RBC 2.58 L Hgb 8.6 L Hct 25.7 L MCV 100 H MCH 33 H MCHC R[place] # (Auto) Seg Neutrophils % Seg Neuts % (Manual) 76.0 H Lymphocytes % (Manual) 6.0 L Monocytes % (Manual) 8.0 H Seg Neutrophils # Seg Neutrophils # Man 12.0 H Lymphocytes # (Manual) 0.9 L Monocytes # (Manual) 1.3 H PT APTT D-Dimer Heparin Anti-Xa Level ABG pH POC ABG pCO2 POC ABG pO2 ABG pO2 ABG Hemoglobin ABG Oxyhemoglobin ABG Sodium ABG Potassium ABG Chloride ABG Glucose Carboxyhemoglobin Sodium Potassium Chloride Carbon Dioxide BUN 65 H Creatinine Glucose 205 H POC Glucose 236 H Lactic Acid Calcium Phosphorus Magnesium Ferritin AST ALT Alkaline Phosphatase Lactate Dehydrogenase Troponin T C-Reactive Protein Total Protein Albumin HDL Cholesterol Arterial Blood Glucose Arterial Blood Ionized Calcium Urine WBC (Auto) Urine Creatinine 06/08/21 06/08/21 06/08/21 05:36 11:18 17:41 WBC RBC Hgb Hct MCV MCH MCHC R[place] # (Auto) Seg Neutrophils % Seg Neuts % (Manual) Lymphocytes % (Manual) Monocytes % (Manual) Seg Neutrophils # Seg Neutrophils # Man Lymphocytes # (Manual) Monocytes # (Manual) PT APTT D-Dimer Heparin Anti-Xa Level ABG pH POC ABG pCO2 POC ABG pO2 ABG pO2 ABG Hemoglobin ABG Oxyhemoglobin ABG Sodium ABG Potassium ABG Chloride ABG Glucose Carboxyhemoglobin Sodium Potassium Chloride Carbon Dioxide BUN Creatinine Glucose POC Glucose 185 H 203 H 173 H Lactic Acid Calcium Phosphorus Magnesium Ferritin AST ALT Alkaline Phosphatase Lactate Dehydrogenase Troponin T C-Reactive Protein Total Protein Albumin HDL Cholesterol Arterial Blood Glucose Arterial Blood Ionized Calcium Urine WBC (Auto) Urine Creatinine 06/08/21 06/09/21 06/09/21 23:34 05:16 05:20 WBC 15.0 H RBC 2.54 L Hgb 8.5 L Hct 25.2 L MCV 99 H MCH 33 H MCHC R[place] # (Auto) Seg Neutrophils % Seg Neuts % (Manual) Lymphocytes % (Manual) Monocytes % (Manual) Seg Neutrophils # Seg Neutrophils # Man Lymphocytes # (Manual) Monocytes # (Manual) PT APTT D-Dimer Heparin Anti-Xa Level ABG pH POC ABG pCO2 POC ABG pO2 ABG pO2 ABG Hemoglobin ABG Oxyhemoglobin ABG Sodium ABG Potassium ABG Chloride ABG Glucose Carboxyhemoglobin Sodium Potassium Chloride Carbon Dioxide BUN Creatinine Glucose POC Glucose 200 H 154 H Lactic Acid Calcium Phosphorus Magnesium Ferritin AST ALT Alkaline Phosphatase Lactate Dehydrogenase Troponin T C-Reactive Protein Total Protein Albumin HDL Cholesterol Arterial Blood Glucose Arterial Blood Ionized Calcium Urine WBC (Auto) Urine Creatinine 06/09/21 06/09/21 06/09/21 05:20 11:40 17:09 WBC RBC Hgb Hct MCV MCH MCHC R[place] # (Auto) Seg Neutrophils % Seg Neuts % (Manual) Lymphocytes % (Manual) Monocytes % (Manual) Seg Neutrophils # Seg Neutrophils # Man Lymphocytes # (Manual) Monocytes # (Manual) PT APTT D-Dimer Heparin Anti-Xa Level ABG pH POC ABG pCO2 POC ABG pO2 ABG pO2 ABG Hemoglobin ABG Oxyhemoglobin ABG Sodium ABG Potassium ABG Chloride ABG Glucose Carboxyhemoglobin Sodium Potassium 5.2 H Chloride Carbon Dioxide BUN 69 H Creatinine Glucose 163 H POC Glucose 232 H 137 H Lactic Acid Calcium Phosphorus Magnesium Ferritin AST ALT Alkaline Phosphatase Lactate Dehydrogenase Troponin T C-Reactive Protein Total Protein Albumin HDL Cholesterol Arterial Blood Glucose Arterial Blood Ionized Calcium Urine WBC (Auto) Urine Creatinine 06/09/21 06/10/21 06/10/21 23:31 04:42 04:42 WBC 14.5 H RBC 2.41 L Hgb 8.2 L Hct 24.0 L MCV 100 H MCH 34 H MCHC RDW 15.8 H [place] # (Auto) Seg Neutrophils % Seg Neuts % (Manual) Lymphocytes % (Manual) Monocytes % (Manual) Seg Neutrophils # Seg Neutrophils # Man Lymphocytes # (Manual) Monocytes # (Manual) PT APTT D-Dimer Heparin Anti-Xa Level ABG pH POC ABG pCO2 POC ABG pO2 ABG pO2 ABG Hemoglobin ABG Oxyhemoglobin ABG Sodium ABG Potassium ABG Chloride ABG Glucose Carboxyhemoglobin Sodium 146 H D Potassium 3.4 L D Chloride Carbon Dioxide BUN 62 H Creatinine Glucose 174 H POC Glucose 162 H Lactic Acid Calcium Phosphorus Magnesium Ferritin AST ALT Alkaline Phosphatase Lactate Dehydrogenase Troponin T C-Reactive Protein Total Protein Albumin HDL Cholesterol Arterial Blood Glucose Arterial Blood Ionized Calcium Urine WBC (Auto) Urine Creatinine 06/10/21 06/10/21 06/10/21 05:36 11:43 18:24 WBC RBC Hgb Hct MCV MCH MCHC RDW [place] # (Auto) Seg Neutrophils % Seg Neuts % (Manual) Lymphocytes % (Manual) Monocytes % (Manual) Seg Neutrophils # Seg Neutrophils # Man Lymphocytes # (Manual) Monocytes # (Manual) PT APTT D-Dimer Heparin Anti-Xa Level ABG pH POC ABG pCO2 POC ABG pO2 ABG pO2 ABG Hemoglobin ABG Oxyhemoglobin ABG Sodium ABG Potassium ABG Chloride ABG Glucose Carboxyhemoglobin Sodium Potassium Chloride Carbon Dioxide BUN Creatinine Glucose POC Glucose 149 H 183 H 139 H Lactic Acid Calcium Phosphorus Magnesium Ferritin AST ALT Alkaline Phosphatase Lactate Dehydrogenase Troponin T C-Reactive Protein Total Protein Albumin HDL Cholesterol Arterial Blood Glucose Arterial Blood Ionized Calcium Urine WBC (Auto) Urine Creatinine 06/10/21 06/11/21 06/11/21 23:32 04:17 05:22 WBC RBC Hgb Hct MCV MCH MCHC RDW [place] # (Auto) Seg Neutrophils % Seg Neuts % (Manual) Lymphocytes % (Manual) Monocytes % (Manual) Seg Neutrophils # Seg Neutrophils # Man Lymphocytes # (Manual) Monocytes # (Manual) PT APTT D-Dimer Heparin Anti-Xa Level 0.84 H ABG pH POC ABG pCO2 POC ABG pO2 ABG pO2 ABG Hemoglobin ABG Oxyhemoglobin ABG Sodium ABG Potassium ABG Chloride ABG Glucose Carboxyhemoglobin Sodium Potassium Chloride Carbon Dioxide BUN Creatinine Glucose POC Glucose 149 H 138 H Lactic Acid Calcium Phosphorus Magnesium Ferritin AST ALT Alkaline Phosphatase Lactate Dehydrogenase Troponin T C-Reactive Protein Total Protein Albumin HDL Cholesterol Arterial Blood Glucose Arterial Blood Ionized Calcium Urine WBC (Auto) Urine Creatinine 06/11/21 06/11/21 06/12/21 11:26 23:56 04:44 WBC 15.5 H RBC 2.59 L Hgb 8.6 L Hct 25.8 L MCV 100 H MCH 33 H MCHC RDW 15.3 H [place] # (Auto) Seg Neutrophils % Seg Neuts % (Manual) Lymphocytes % (Manual) Monocytes % (Manual) Seg Neutrophils # Seg Neutrophils # Man Lymphocytes # (Manual) Monocytes # (Manual) PT APTT D-Dimer Heparin Anti-Xa Level ABG pH POC ABG pCO2 POC ABG pO2 ABG pO2 ABG Hemoglobin ABG Oxyhemoglobin ABG Sodium ABG Potassium ABG Chloride ABG Glucose Carboxyhemoglobin Sodium Potassium Chloride Carbon Dioxide BUN Creatinine Glucose POC Glucose 198 H 199 H Lactic Acid Calcium Phosphorus Magnesium Ferritin AST ALT Alkaline Phosphatase Lactate Dehydrogenase Troponin T C-Reactive Protein Total Protein Albumin HDL Cholesterol Arterial Blood Glucose Arterial Blood Ionized Calcium Urine WBC (Auto) Urine Creatinine 06/12/21 06/12/21 06/12/21 04:44 04:44 05:29 WBC RBC Hgb Hct MCV MCH MCHC RDW [place] # (Auto) Seg Neutrophils % Seg Neuts % (Manual) Lymphocytes % (Manual) Monocytes % (Manual) Seg Neutrophils # Seg Neutrophils # Man Lymphocytes # (Manual) Monocytes # (Manual) PT APTT D-Dimer Heparin Anti-Xa Level ABG pH POC ABG pCO2 POC ABG pO2 ABG pO2 ABG Hemoglobin ABG Oxyhemoglobin ABG Sodium ABG Potassium ABG Chloride ABG Glucose Carboxyhemoglobin Sodium 148 H Potassium Chloride Carbon Dioxide BUN 49 H 51 H Creatinine Glucose 222 H 223 H POC Glucose 193 H Lactic Acid Calcium Phosphorus Magnesium 3.20 H Ferritin AST 81 H ALT 83 H Alkaline Phosphatase 215 H Lactate Dehydrogenase Troponin T C-Reactive Protein Total Protein Albumin 3.2 L HDL Cholesterol Arterial Blood Glucose Arterial Blood Ionized Calcium Urine WBC (Auto) Urine Creatinine 06/12/21 06/12/21 06/12/21 11:21 17:55 23:23 WBC RBC Hgb Hct MCV MCH MCHC RDW [place] # (Auto) Seg Neutrophils % Seg Neuts % (Manual) Lymphocytes % (Manual) Monocytes % (Manual) Seg Neutrophils # Seg Neutrophils # Man Lymphocytes # (Manual) Monocytes # (Manual) PT APTT D-Dimer Heparin Anti-Xa Level ABG pH POC ABG pCO2 POC ABG pO2 ABG pO2 ABG Hemoglobin ABG Oxyhemoglobin ABG Sodium ABG Potassium ABG Chloride ABG Glucose Carboxyhemoglobin Sodium Potassium Chloride Carbon Dioxide BUN Creatinine Glucose POC Glucose 185 H 210 H 211 H Lactic Acid Calcium Phosphorus Magnesium Ferritin AST ALT Alkaline Phosphatase Lactate Dehydrogenase Troponin T C-Reactive Protein Total Protein Albumin HDL Cholesterol Arterial Blood Glucose Arterial Blood Ionized Calcium Urine WBC (Auto) Urine Creatinine 06/13/21 06/13/21 06/13/21 04:34 04:34 05:17 WBC 17.2 H RBC 2.56 L Hgb 8.6 L Hct 26.1 L MCV 102 H MCH 34 H MCHC R[place] # (Auto) Seg Neutrophils % Seg Neuts % (Manual) Lymphocytes % (Manual) Monocytes % (Manual) Seg Neutrophils # Seg Neutrophils # Man Lymphocytes # (Manual) Monocytes # (Manual) PT APTT D-Dimer Heparin Anti-Xa Level ABG pH POC ABG pCO2 POC ABG pO2 ABG pO2 ABG Hemoglobin ABG Oxyhemoglobin ABG Sodium ABG Potassium ABG Chloride ABG Glucose Carboxyhemoglobin Sodium 149 H Potassium 5.1 H Chloride Carbon Dioxide BUN 52 H Creatinine 1.6 H Glucose 231 H POC Glucose 207 H Lactic Acid Calcium Phosphorus Magnesium Ferritin AST 69 H ALT 74 H Alkaline Phosphatase 197 H Lactate Dehydrogenase Troponin T C-Reactive Protein Total Protein Albumin 3.0 L HDL Cholesterol Arterial Blood Glucose Arterial Blood Ionized Calcium Urine WBC (Auto) Urine Creatinine 06/13/21 06/13/21 06/13/21 10:44 11:07 12:07 WBC RBC Hgb Hct MCV MCH MCHC R[place] # (Auto) Seg Neutrophils % Seg Neuts % (Manual) Lymphocytes % (Manual) Monocytes % (Manual) Seg Neutrophils # Seg Neutrophils # Man Lymphocytes # (Manual) Monocytes # (Manual) PT APTT D-Dimer Heparin Anti-Xa Level < 0.10 L ABG pH 7.455 H POC ABG pCO2 POC ABG pO2 ABG pO2 ABG Hemoglobin 8.6 L ABG Oxyhemoglobin ABG Sodium ABG Potassium 4.7 H ABG Chloride ABG Glucose 277 H Carboxyhemoglobin Sodium Potassium Chloride Carbon Dioxide BUN Creatinine Glucose POC Glucose 241 H Lactic Acid Calcium Phosphorus Magnesium Ferritin AST ALT Alkaline Phosphatase Lactate Dehydrogenase Troponin T C-Reactive Protein Total Protein Albumin HDL Cholesterol Arterial Blood Glucose 277 H Arterial Blood Ionized Calcium Urine WBC (Auto) Urine Creatinine 06/13/21 06/13/21 06/13/21 17:35 21:13 23:19 WBC RBC Hgb Hct MCV MCH MCHC RDW [place] # (Auto) Seg Neutrophils % Seg Neuts % (Manual) Lymphocytes % (Manual) Monocytes % (Manual) Seg Neutrophils # Seg Neutrophils # Man Lymphocytes # (Manual) Monocytes # (Manual) PT APTT D-Dimer Heparin Anti-Xa Level 0.92 H ABG pH POC ABG pCO2 POC ABG pO2 ABG pO2 ABG Hemoglobin ABG Oxyhemoglobin ABG Sodium ABG Potassium ABG Chloride ABG Glucose Carboxyhemoglobin Sodium Potassium Chloride Carbon Dioxide BUN Creatinine Glucose POC Glucose 233 H 232 H Lactic Acid Calcium Phosphorus Magnesium Ferritin AST ALT Alkaline Phosphatase Lactate Dehydrogenase Troponin T C-Reactive Protein Total Protein Albumin HDL Cholesterol Arterial Blood Glucose Arterial Blood Ionized Calcium Urine WBC (Auto) Urine Creatinine 06/14/21 06/14/21 06/14/21 04:21 04:21 05:36 WBC 15.6 H RBC 2.26 L Hgb 7.6 L Hct 22.9 L MCV 101 H MCH 34 H MCHC RDW 15.3 [place] # (Auto) Seg Neutrophils % Seg Neuts % (Manual) Lymphocytes % (Manual) Monocytes % (Manual) Seg Neutrophils # Seg Neutrophils # Man Lymphocytes # (Manual) Monocytes # (Manual) PT APTT D-Dimer Heparin Anti-Xa Level ABG pH POC ABG pCO2 POC ABG pO2 ABG pO2 ABG Hemoglobin ABG Oxyhemoglobin ABG Sodium ABG Potassium ABG Chloride ABG Glucose Carboxyhemoglobin Sodium 149 H Potassium Chloride 107.8 H Carbon Dioxide BUN 66 H Creatinine 1.8 H Glucose 192 H POC Glucose 166 H Lactic Acid Calcium Phosphorus Magnesium Ferritin AST ALT Alkaline Phosphatase Lactate Dehydrogenase Troponin T C-Reactive Protein Total Protein Albumin HDL Cholesterol Arterial Blood Glucose Arterial Blood Ionized Calcium Urine WBC (Auto) Urine Creatinine 06/14/21 06/14/21 06/14/21 12:21 17:07 23:14 WBC RBC Hgb Hct MCV MCH MCHC R[place] # (Auto) Seg Neutrophils % Seg Neuts % (Manual) Lymphocytes % (Manual) Monocytes % (Manual) Seg Neutrophils # Seg Neutrophils # Man Lymphocytes # (Manual) Monocytes # (Manual) PT APTT D-Dimer Heparin Anti-Xa Level ABG pH POC ABG pCO2 POC ABG pO2 ABG pO2 ABG Hemoglobin ABG Oxyhemoglobin ABG Sodium ABG Potassium ABG Chloride ABG Glucose Carboxyhemoglobin Sodium Potassium Chloride Carbon Dioxide BUN Creatinine Glucose POC Glucose 190 H 172 H 195 H Lactic Acid Calcium Phosphorus Magnesium Ferritin AST ALT Alkaline Phosphatase Lactate Dehydrogenase Troponin T C-Reactive Protein Total Protein Albumin HDL Cholesterol Arterial Blood Glucose Arterial Blood Ionized Calcium Urine WBC (Auto) Urine Creatinine 06/15/21 06/15/21 06/15/21 05:08 05:08 05:47 WBC 15.3 H RBC 2.23 L Hgb 7.3 L Hct 22.5 L MCV 101 H MCH 33 H MCHC R[place] # (Auto) Seg Neutrophils % Seg Neuts % (Manual) Lymphocytes % (Manual) Monocytes % (Manual) Seg Neutrophils # Seg Neutrophils # Man Lymphocytes # (Manual) Monocytes # (Manual) PT APTT D-Dimer Heparin Anti-Xa Level ABG pH POC ABG pCO2 POC ABG pO2 ABG pO2 ABG Hemoglobin ABG Oxyhemoglobin ABG Sodium ABG Potassium ABG Chloride ABG Glucose Carboxyhemoglobin Sodium 147 H Potassium Chloride Carbon Dioxide BUN 60 H Creatinine 1.6 H Glucose 158 H POC Glucose 150 H Lactic Acid Calcium 8.2 L Phosphorus 5.90 H Magnesium 3.20 H Ferritin AST ALT Alkaline Phosphatase Lactate Dehydrogenase Troponin T C-Reactive Protein Total Protein Albumin HDL Cholesterol Arterial Blood Glucose Arterial Blood Ionized Calcium Urine WBC (Auto) Urine Creatinine 06/15/21 06/15/21 06/15/21 10:19 11:25 17:47 WBC RBC Hgb Hct MCV MCH MCHC R[place] # (Auto) Seg Neutrophils % Seg Neuts % (Manual) Lymphocytes % (Manual) Monocytes % (Manual) Seg Neutrophils # Seg Neutrophils # Man Lymphocytes # (Manual) Monocytes # (Manual) PT APTT D-Dimer Heparin Anti-Xa Level ABG pH 7.471 H POC ABG pCO2 POC ABG pO2 ABG pO2 ABG Hemoglobin ABG Oxyhemoglobin ABG Sodium ABG Potassium ABG Chloride ABG Glucose Carboxyhemoglobin Sodium Potassium Chloride Carbon Dioxide BUN Creatinine Glucose POC Glucose 133 H 201 H Lactic Acid Calcium Phosphorus Magnesium Ferritin AST ALT Alkaline Phosphatase Lactate Dehydrogenase Troponin T C-Reactive Protein Total Protein Albumin HDL Cholesterol Arterial Blood Glucose Arterial Blood Ionized Calcium Urine WBC (Auto) Urine Creatinine 06/15/21 06/15/21 06/16/21 23:43 Unknown 04:31 WBC 13.8 H RBC 2.23 L Hgb 7.5 L Hct 22.4 L MCV 101 H MCH 34 H MCHC [place]DW [place] # (Auto) Seg Neutrophils % Seg Neuts % (Manual) Lymphocytes % (Manual) Monocytes % (Manual) Seg Neutrophils # Seg Neutrophils # Man Lymphocytes # (Manual) Monocytes # (Manual) PT APTT D-Dimer Heparin Anti-Xa Level ABG pH POC ABG pCO2 POC ABG pO2 ABG pO2 ABG Hemoglobin ABG Oxyhemoglobin ABG Sodium ABG Potassium ABG Chloride ABG Glucose Carboxyhemoglobin Sodium Potassium Chloride Carbon Dioxide BUN Creatinine Glucose POC Glucose 148 H Lactic Acid Calcium Phosphorus Magnesium Ferritin AST ALT Alkaline Phosphatase Lactate Dehydrogenase Troponin T C-Reactive Protein Total Protein Albumin HDL Cholesterol Arterial Blood Glucose Arterial Blood Ionized Calcium Urine WBC (Auto) Urine Creatinine 74.7 H 06/16/21 06/16/21 06/16/21 04:31 05:48 11:47 WBC RBC Hgb Hct MCV MCH MCHC [place]DW [place] # (Auto) Seg Neutrophils % Seg Neuts % (Manual) Lymphocytes % (Manual) Monocytes % (Manual) Seg Neutrophils # Seg Neutrophils # Man Lymphocytes # (Manual) Monocytes # (Manual) PT APTT D-Dimer Heparin Anti-Xa Level ABG pH POC ABG pCO2 POC ABG pO2 ABG pO2 ABG Hemoglobin ABG Oxyhemoglobin ABG Sodium ABG Potassium ABG Chloride ABG Glucose Carboxyhemoglobin Sodium Potassium Chloride Carbon Dioxide BUN 49 H Creatinine 1.3 H Glucose 194 H POC Glucose 184 H 190 H Lactic Acid Calcium Phosphorus 5.40 H Magnesium 2.90 H Ferritin AST ALT Alkaline Phosphatase Lactate Dehydrogenase Troponin T C-Reactive Protein Total Protein Albumin HDL Cholesterol Arterial Blood Glucose Arterial Blood Ionized Calcium Urine WBC (Auto) Urine Creatinine 06/16/21 06/16/21 06/16/21 18:51 18:51 23:13 WBC 12.4 H RBC 2.22 L Hgb 7.3 L Hct 22.4 L MCV 101 H MCH 33 H MCHC [place]DW [place] # (Auto) Seg Neutrophils % Seg Neuts % (Manual) Lymphocytes % (Manual) Monocytes % (Manual) Seg Neutrophils # Seg Neutrophils # Man Lymphocytes # (Manual) Monocytes # (Manual) PT APTT 64.1 H* D-Dimer Heparin Anti-Xa Level ABG pH POC ABG pCO2 POC ABG pO2 ABG pO2 ABG Hemoglobin ABG Oxyhemoglobin ABG Sodium ABG Potassium ABG Chloride ABG Glucose Carboxyhemoglobin Sodium Potassium Chloride Carbon Dioxide BUN Creatinine Glucose POC Glucose 160 H Lactic Acid Calcium Phosphorus Magnesium Ferritin AST ALT Alkaline Phosphatase Lactate Dehydrogenase Troponin T C-Reactive Protein Total Protein Albumin HDL Cholesterol Arterial Blood Glucose Arterial Blood Ionized Calcium Urine WBC (Auto) Urine Creatinine 06/17/21 06/17/21 06/17/21 04:19 05:02 11:56 WBC RBC Hgb Hct MCV MCH MCHC RDW [place] # (Auto) Seg Neutrophils % Seg Neuts % (Manual) Lymphocytes % (Manual) Monocytes % (Manual) Seg Neutrophils # Seg Neutrophils # Man Lymphocytes # (Manual) Monocytes # (Manual) PT APTT D-Dimer Heparin Anti-Xa Level 1.53 H ABG pH POC ABG pCO2 POC ABG pO2 ABG pO2 ABG Hemoglobin ABG Oxyhemoglobin ABG Sodium ABG Potassium ABG Chloride ABG Glucose Carboxyhemoglobin Sodium Potassium Chloride Carbon Dioxide BUN Creatinine Glucose POC Glucose 167 H 166 H Lactic Acid Calcium Phosphorus Magnesium Ferritin AST ALT Alkaline Phosphatase Lactate Dehydrogenase Troponin T C-Reactive Protein Total Protein Albumin HDL Cholesterol Arterial Blood Glucose Arterial Blood Ionized Calcium Urine WBC (Auto) Urine Creatinine Chest x-ray: pending Allied health notes reviewed: nursing
[2021-06-17] MEDS ORDERED: CEFEPIME/NS 2 GM/100 ML 2 GM/100 ML BAG IV SCH (16:00)
[2021-06-17] MEDS: INSULIN GLARGINE 100 UNITS/ML SUB-Q SCH (22:45)
[2021-06-18] MEDS: CEFEPIME/NS 2 GM/100 ML 2 GM/100 ML BAG IV SCH (04:00)
[2021-06-18] MEDS: hydrALAZINE 25 MG TAB PO SCH ×3 (05:47→21:21)
[2021-06-18] MEDS: INSULIN LISPRO 100 UNIT/ML SUB-Q SCH (05:48)
[2021-06-18 06:45] LABS: Hematocrit 21.9 % (30.3-42.9); Hemoglobin 7.3 gm/dl (10.1-14.3); Mean Corpuscular HGB Conc 33 % (30-34); Mean Corpuscular Volume 100 fl (79-97); Platelet Count 257 K/mm3 (140-440); Red Blood Count 2.19 M/mm3 (3.65-5.03)
[2021-06-18] MEDS: levETIRAcetam 500 MG/5 ML ORAL LIQD FEEDTUBE SCH ×2 (09:14→21:54)
[2021-06-18] MEDS: FAMOTIDINE 20 MG TAB FEEDTUBE SCH ×2 (09:14→21:22)
[2021-06-18] MEDS: DOCUSATE SODIUM 100 MG/10 ML ORAL LIQD PO SCH (09:14)
[2021-06-18] MEDS: APIXABAN 5 MG TAB PO SCH ×2 (09:15→21:22)
[2021-06-18] MEDS: VALSARTAN 160MG TAB PO SCH ×2 (09:15→21:54)
[2021-06-18] MEDS: POLYETHYLENE GLYCOL 3350 17 GM POWDER PO SCH (09:16)
[2021-06-18] MEDS: DOXAZOSIN 1 MG TAB PO SCH ×2 (09:16→21:20)
[2021-06-18] MEDS: SENNOSIDES/DOCUSATE SODIUM 8.6/50 MG TAB FEEDTUBE SCH ×2 (09:16→21:20)
[2021-06-18] MEDS: FREE WATER PO SCH ×2 (09:46→09:47)
--- NOTE | 2021-06-18 10:50 | Progress Note ---
Assessment and Plan Assessment and plan: This is a 65 year old female with HTN, nonepileptic spells, PTSD, close head injury, DM, CAD s/p stents and PA, independence, hyperlipidemia admitted with sepsis, pneumonia, acute proximal respiratory failure, toxic metabolic encephalopathy, suspected anoxic brain injury, metabolic acidosis Tracheal aspirate gram-negative rods, empiric antibiotics cefepime ordered, follow culture sensitivities Consider ID evaluation if needed Neuro: Toxic metabolic encephalopathy, likely anoxic brain injury, tonic-cloninc seziure; h/o nonepileptic spells, PTSD, closed head injury -Neurology consulted, appreciate recommendations -CT head completed->see results, without acute or large territorial infarct -Per neurology: MRI brain is suggestive of water shed Infarct Bilateral -- mostly related to Hypoperfusion -06/01 repeat MRI brain noted, possible subacute ischemic changes. -Off sedation -Intact cough/gag, pupils sluggish -Keppra -EEG showed no signs of seizure -prn ativan -Patient is off sedation, open eyes spontaneously, pupils reactive, with +gag and cough. -Not following commands, no movement to stimuli Cardio: S/p cardiac arrest, A. fib with RVR, h/o HTN -Currently on Labetalol, Hydralazine, valsartan, & Doxazosin -PRN hydral IV -Cardiology consulted, appreciate recommendations -05/2020 dobutamine thallium stress test showed normal perfusion study. -05/2020 echo showed normal left ventricular systolic function. -NIBP per protocol Resp: Acute hypoxic respiratory failure -CCM consulted, appreciate recommendations -Intubated 05/25 with 7.0 oett at 23 lip, trach on 06/12 -06/15 T piece trials started, currently on T-piece -see RT notes for titration -ABG/CXR -Continuous SP02 monitoring -Scopalamine and robinul for secretions -discontinued today -VAP bundle GI: protein -aspen malnutrition -Ntr consult for TF -PEG placed 06/12 -PPI -24hr +1630 -BR: senokot, maalox, colace; prn dulcolex -BM: 06/10 : Acute renal injury likely 2/2 to vasomotor nephrology -increase noted in bun/cr 06/13 -strict I&O -daily weights -urine lytes ordered -candie -Trend BMP -Monitor and replete electrolytes as needed -FWF 250 q 4hours -hypernatremia and Cr slightly improving Endo: Hyperglycemia, h/o DM -SSI -Lantus, titrate as needed -Avoid hypoglycemia -accucheck q6 Heme: Leukocytosis -CTA chest without evidence of PE -IV heparin d/t afib -transitioned to PO -CAMILO-VASC2 score 4 -Trend CBC -Transfuse for hgb<7 ID: Sepsis, Bilateral Lower Lobe Infiltrates -COVID 19 PCR (-) -s/p cefepime 05/25-05/29 -admit cxr with infiltrates, CTA chest with dense dependent consolidation/atelectasis in lungs -Monitor temp and WBC curve -noted spike in temp overnight -CXR, Blood culture, UA, Sputum culture ordered -BC/UC/Tracheal aspirate NGTD from 05/25 -Covid 19 PCR negative -06/07 CRP 28.90 and procal 0.36 Dispo: pending LTACH We will closely monitor the patient and adjust management as needed Plan of care reviewed with the patient's nurse I also discussed with the wardrobe technician Dr. Burt The high probability of a clinically significant, sudden or life threatening deterioration of the [multiple] system(s) required my full and direct attention, intervention and personal management. The aggregate critical care time was [60] minutes. This time is in addition to time spent performing reported procedures but includes the following: [x] Data Review and interpretation [x] Patient assessment and monitoring of vital signs [x] Documentation [x] Medication orders and management Disposition Plan: icu Total Time Spent with Patient (Minutes): 60 History Interval history: 65-year-old female, history of nonepileptic spells, PTSD, closed head injury, hypertension, diabetes, CAD, presents to the ED following cardiac arrest. EMS states Patient collapsed and became unresponsive. Patient was pulseless and apneic. Rhythm was asystole. Patient was intubated by EMS. She was given epi x2. ACLS times approximately 10 minutes followed by return of pulses. Accu- Chek in the 200s. With initial rhythm check here in ED, patient was pulseless, so ACLS restarted. Patient has return of pulse and noted to be in atrial fib, initiated on iv keppra and heparin drip. 05/26/21: Updated family at the bedside, Covid test is negative. Will order EEG and neuro consult. Remains intubated, follow clinically. Sedated on Midazolam and Propofol, just received one dose of Lorazepam for witnessed seizure by RN. NSR now, on heparin drip 05/27/21; remains intubated. pending EEG and neuro eval. wean off vent as tolerated. Continue heparin drip per cardiology, replete potassium yesterday, follow BMP. BP noted to be elevated, next started on antihypertensives. 05/28/21; BP noted to be elevated, initiated on antihypertensive, remains intubated. Pending neurology evaluation and EEG. Continue supportive care, follow BMP. 05/29/21: Ordered for MRI brain, continue Keppra, pending EEG. Appreciate neuro recommendation. follow BMP, tolerating TF 05/30/21: Patient remains intubated, pending MRI brain, follow neurology recommendation. EEG showed diffuse slowing. 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 off sedation now, cont to follow. gurded prognosis 06/01: MRI was suggestive of watershed infarct bilaterally and was seen by neurology and recommend to do MRI with gadolinium. Patient is off sedation and still unresponsive. Prognosis is guarded. 06/02: Continue current management. Prognosis is guarded. Patient needs trach. 06/03: Patient is unresponsive spite of all sedatives. Prognosis is guarded to poor. Neurology consult appreciated. 06/04: Patient is unresponsive. Patient is off sedatives. Blood sugar is uncontrolled and I adjusted her insulin. Neurology consult appreciated. Prognosis is guarded to poor. 06/05/21- Patient remains ETT and on vent support. Off sedation with some improvement in neuro status, but is not following commands. Patient is tolerating SBT trial this am, still on the heparin gtt. AM labs is pending. Patient is still hyperglycemic, increased Qhs lantus. Continue supportive care. 06/06/21- Patient is intubated and on the vent. No longer on sedation, awake but unresponsive, tolerating SBT. Hyperglycemia this am, X1 dose of kayaxalate orderd. Persistent hyperglycemia, insulin adjusted. Continue to monitor electrolytes, repeat BMP this afternoon and am labs ordered. 06/07/21- Patient remains intubated and on the vent. Neuro status is unchanged, spontaneously open yes but is not following commands. SBT trial again, plan to place back on a rate overnight. Leukocytosis noted from this morning lab, stat procalc and CRP ordered, d/w CCM no abx at this time. K 5.4 today, kayalalxate given. Continue to monitor leukocytosis and electrolytes. Am labs ordered 06/08/21- Patient remains intubated and on the vent with no significant change in her neuro status. Patient with no BM in 7days, abdominal soft with positive bowel sounds, colace added and PRN ducolax Supp PRN. Continue to monitor leukocytosis and electrolytes, am labs ordered. Plan for trach and PEG, surgery consulted. 06/09/21- Patient remains stable, intubated with no significant change in neuro status. Trach and Peg cancelled for today. Plan for possibly next week. Hyperkalemia again today, chart review for possible meds interaction. X1 dose of kayexalate ordered. Still no BM today. Episode of emesis today, TF held and NGT to LIS until tommorrow. Orders place for KUB today and Chest XR for the morning. Morning labs ordered. 06/10: Continue supportive care. Trach and PEG planned for early next week. KUB and x-ray with no significant change. Opacity still persist. Critical care management noted. Patient still persistent leukocytosis we will continue to monitor mild hypokalemia noted will replace with potassium. Also noted mild hypernatremia. Agree with holding tube feeds at this time 06/11: Discussed with nursing staff to change to history trickle feeds. Patient is planned for trach and PEG Saturday or Saturday. Continue current management also discussed to hold heparin drip for planned procedure with noted timeframe. We will recheck labs to ensure correction of electrolytes. 06/12/21- Patient's status is unchanged. No significant events overnight. Plan for trach and PEG today. TF and heparin gtt on hold. Continue supportive care. Continue to monitor electrolytes, am labs ordered. 06/13/21- Patient is s/p trach and PEG. D/w surgery okay to use PEGTube and restart TF. Heparin gtt was also restarted per protocol. Persistent hypernatremia and FWF increased for 48hrs, mild hyperkalemia noted no i ntervention at this time. Continue to monitor renal function and electrolytes, am labs ordered. 06/14: Transition to PO anticoagulation from heparin gtt tomorrow. plan to place on tpiece tomorrow. 06/15: Patient spiked a temp today and was root cultured, h/h decreasing and stool occult ordered. Increase in insulin. T piece trials today. Small volume emesis x2 06/16; patient is on T-piece, On heparin drip for A. fib, will transition to Eliquis , I discussed the case with wardrobe technician 06/17; tracheal cultures positive for gram-negative rods, ordered cefepime, follow cultures Consider ID consult 06/18 no significant change, patient receiving cefepime[sputum cultures gram- negative rods] Follow sensitivities, ID if needed History Interval history: I have seen and examined in ICU this morning Patient is unresponsive status post trach and PEG Vital signs noted No new events reported by nursing Hospitalist Physical - Constitutional Vitals: Temp Pulse Resp BP Pulse Ox 99.5 F 88 12 161/74 100 06/18/21 04:00 06/18/21 09:16 06/18/21 06:00 06/18/21 09:16 06/18/21 06:00 General appearance: Present: no acute distress, well-nourished, other (Trach on vent) - EENT Eyes: Present: PERRL, EOM intact - Neck Neck: Present: supple, normal ROM - Respiratory Respiratory effort: normal Respiratory: bilateral: diminished, rhonchi, negative: rales, wheezing - Cardiovascular Rhythm: regular Heart Sounds: Present: S1 & S2 - Extremities Extremities: no ischemia, No edema - Abdominal General gastrointestinal: soft, non-tender, non-distended, normal bowel sounds - Integumentary Integumentary: Present: clear, warm - Psychiatric Psychiatric: other (Tracheostomy on T-piece) - Neurologic Neurologic: other (Tracheostomy on T-piece) HEART Score - HEART Score Troponin: Troponin T 0.226 ng/mL (0.00-0.029) H* D 05/25/21 15:19 Results - Labs CBC & Chem 7: 06/18/21 06:20 06/16/21 18:51 Labs: Laboratory Last Values WBC 8.5 K/mm3 (4.5-11.0) 06/18/21 06:20 RBC 2.19 M/mm3 (3.65-5.03) L 06/18/21 06:20 Hgb 7.3 gm/dl (10.1-14.3) L 06/18/21 06:20 Hct 21.9 % (30.3-42.9) L 06/18/21 06:20 MCV 100 fl (79-97) H 06/18/21 06:20 MCH 33 pg (28-32) H 06/18/21 06:20 MCHC 33 % (30-34) 06/18/21 06:20 RDW 15.0 % (13.2-15.2) 06/18/21 06:20 Plt Count 257 K/mm3 (140-440) 06/18/21 06:20 Lymph % (Auto) 14.3 % (13.4-35.0) 05/28/21 04:00 [place] % (Auto) 6.9 % (0.0-7.3) 05/28/21 04:00 Eos % (Auto) 0.1 % (0.0-4.3) 05/28/21 04:00 Baso % (Auto) 0.5 % (0.0-1.8) 05/28/21 04:00 Lymph # (Auto) 1.9 K/mm3 (1.2-5.4) 05/28/21 04:00 [place] # (Auto) 0.9 K/mm3 (0.0-0.8) H 05/28/21 04:00 Eos # (Auto) 0.0 K/mm3 (0.0-0.4) 05/28/21 04:00 Baso # (Auto) 0.1 K/mm3 (0.0-0.1) 05/28/21 04:00 Add Manual Diff Complete 06/08/21 04:25 Total Counted 100 06/08/21 04:25 Seg Neutrophils % 78.2 % (40.0-70.0) H 05/28/21 04:00 Seg Neuts % (Manual) 76.0 % (40.0-70.0) H 06/08/21 04:25 Band Neutrophils % 4.0 % 06/08/21 04:25 Lymphocytes % (Manual) 6.0 % (13.4-35.0) L 06/08/21 04:25 Monocytes % (Manual) 8.0 % (0.0-7.3) H 06/08/21 04:25 Eosinophils % (Manual) 1.0 % (0.0-4.3) 06/08/21 04:25 Metamyelocytes % 3.0 % 06/08/21 04:25 Myelocytes % 2.0 % 06/08/21 04:25 Nucleated RBC % Not Reportable 06/08/21 04:25 Seg Neutrophils # 10.6 K/mm3 (1.8-7.7) H 05/28/21 04:00 Seg Neutrophils # Man 12.0 K/mm3 (1.8-7.7) H 06/08/21 04:25 Band Neutrophils # 0.6 K/mm3 06/08/21 04:25 Lymphocytes # (Manual) 0.9 K/mm3 (1.2-5.4) L 06/08/21 04:25 Abs React Lymphs (Man) 0.0 K/mm3 06/08/21 04:25 Monocytes # (Manual) 1.3 K/mm3 (0.0-0.8) H 06/08/21 04:25 Eosinophils # (Manual) 0.2 K/mm3 (0.0-0.4) 06/08/21 04:25 Basophils # (Manual) 0.0 K/mm3 (0.0-0.1) 06/08/21 04:25 Metamyelocytes # 0.5 K/mm3 06/08/21 04:25 Myelocytes # 0.3 K/mm3 06/08/21 04:25 Promyelocytes # 0.0 K/mm3 06/08/21 04:25 Blast Cells # 0.0 K/mm3 06/08/21 04:25 WBC Morphology Not Reportable 06/08/21 04:25 Hypersegmented Neuts Not Reportable 06/08/21 04:25 Hyposegmented Neuts Not Reportable 06/08/21 04:25 Hypogranular Neuts Not Reportable 06/08/21 04:25 Smudge Cells Not Reportable 06/08/21 04:25 Toxic Granulation Not Reportable 06/08/21 04:25 Toxic Vacuolation Not Reportable 06/08/21 04:25 Dohle Bodies Not Reportable 06/08/21 04:25 Pelger-Huet Anomaly Not Reportable 06/08/21 04:25 Peter Rods Not Reportable 06/08/21 04:25 Platelet Estimate Consistent w auto 06/08/21 04:25 Clumped Platelets Not Reportable 06/08/21 04:25 Plt Clumps, EDTA Not Reportable 06/08/21 04:25 Large Platelets Not Reportable 06/08/21 04:25 Giant Platelets Not Reportable 06/08/21 04:25 Platelet Satelliting Not Reportable 06/08/21 04:25 Plt Morphology Comment Not Reportable 06/08/21 04:25 RBC Morphology Not Reportable 06/08/21 04:25 Dimorphic RBCs Not Reportable 06/08/21 04:25 Polychromasia Not Reportable 06/08/21 04:25 Hypochromasia Not Reportable 06/08/21 04:25 Poikilocytosis Not Reportable 06/08/21 04:25 Anisocytosis Not Reportable 06/08/21 04:25 Microcytosis Not Reportable 06/08/21 04:25 Macrocytosis Not Reportable 06/08/21 04:25 Spherocytes Not Reportable 06/08/21 04:25 Pappenheimer Bodies Not Reportable 06/08/21 04:25 Sickle Cells Not Reportable 06/08/21 04:25 Target Cells Not Reportable 06/08/21 04:25 Tear Drop Cells Not Reportable 06/08/21 04:25 Ovalocytes Not Reportable 06/08/21 04:25 Helmet Cells Not Reportable 06/08/21 04:25 [place] Bodies Not Reportable 06/08/21 04:25 [place] Rings Not Reportable 06/08/21 04:25 [place] Cells Not Reportable 06/08/21 04:25 Bite Cells Not Reportable 06/08/21 04:25 Crenated Cell Not Reportable 06/08/21 04:25 Elliptocytes Not Reportable 06/08/21 04:25 Acanthocytes (Spur) Not Reportable 06/08/21 04:25 Rouleaux Not Reportable 06/08/21 04:25 Hemoglobin C Crystals Not Reportable 06/08/21 04:25 Schistocytes Not Reportable 06/08/21 04:25 Malaria parasites Not Reportable 06/08/21 04:25 Shravan Bodies Not Reportable 06/08/21 04:25 Hem Pathologist Commnt No 06/08/21 04:25 PT 14.5 Sec. (12.2-14.9) 06/16/21 18:51 INR 1.08 (0.87-1.13) 06/16/21 18:51 APTT 64.1 Sec. (24.2-36.6) H* 06/16/21 18:51 D-Dimer > 26540 ng/mlDDU (0-234) H 05/25/21 09:21 Heparin Anti-Xa Level 1.53 U.I./ml (0.3-0.7) H 06/17/21 04:19 ABG pH 7.471 (7.320-7.450) H 06/15/21 10:19 POC ABG pCO2 40.4 mmHg (32.0-48.0) 06/15/21 10:19 ABG pCO2 30.3 mm Hg 05/29/21 05:28 POC ABG pO2 90.1 mmHg (83-108) 06/15/21 10:19 ABG pO2 96.2 mm Hg (80.0-90.0) H 05/29/21 05:28 POC ABG HCO3 28.8 06/15/21 10:19 ABG HCO3 24.0 mmol/L (20.0-26.0) 05/29/21 05:28 ABG O2 Saturation 97.4 (0-100) 06/15/21 10:19 ABG O2 Content 10.3 (0.0-44) 05/29/21 05:28 POC ABG Base Excess 4.8 06/15/21 10:19 ABG Base Excess 1.2 mmol/L (-2.0-3.0) 05/29/21 05:28 ABG Hemoglobin 8.6 (12.0-17.5) L 06/13/21 11:07 ABG Oxyhemoglobin 96.0 (94-98) 06/15/21 10:19 ABG Carboxyhemoglobin 1.6 % (0.0-5.0) 05/29/21 05:28 ABG Methemoglobin 0.3 (0.0-1.5) 06/13/21 11:07 ABG Sodium 144.0 mmol/L (136.0-145.0) 06/13/21 11:07 ABG Potassium 4.7 mmol/L (3.40-4.50) H 06/13/21 11:07 ABG Chloride 107.0 mmol/L (98-107) 06/13/21 11:07 ABG Glucose 277 mg/dL (65-95) H 06/13/21 11:07 Oxyhemoglobin 96.0 % (95.0-99.0) 05/29/21 05:28 Carboxyhemoglobin 1.5 (0.5-1.5) 06/15/21 10:19 FiO2 30 % 05/29/21 05:28 FiO2 % 40 06/15/21 10:19 Sodium 145 mmol/L (137-145) 06/16/21 04:31 Potassium 4.1 mmol/L (3.6-5.0) 06/16/21 04:31 Chloride 103.9 mmol/L (98-107) 06/16/21 04:31 Carbon Dioxide 27 mmol/L (22-30) 06/16/21 04:31 Anion Gap 18 mmol/L 06/16/21 04:31 BUN 49 mg/dL (7-17) H 06/16/21 04:31 Creatinine 1.1 mg/dL (0.6-1.2) 06/16/21 18:51 Estimated GFR 60 ml/min 06/16/21 18:51 BUN/Creatinine Ratio 38 % 06/16/21 04:31 Glucose 194 mg/dL (65-100) H 06/16/21 04:31 POC Glucose 174 mg/dL (70-105) H 06/18/21 05:40 Lactic Acid 2.30 mmol/L (0.7-2.0) H* 05/26/21 05:49 Calcium 8.6 mg/dL (8.4-10.2) 06/16/21 04:31 Phosphorus 5.40 mg/dL (2.5-4.5) H 06/16/21 04:31 Magnesium 2.90 mg/dL (1.7-2.3) H 06/16/21 04:31 Ferritin 321.6 ng/mL (10.0-200.0) H 05/25/21 09:21 Total Bilirubin 0.50 mg/dL (0.1-1.2) 06/13/21 04:34 Direct Bilirubin < 0.2 mg/dL (0-0.2) 05/25/21 09:21 Indirect Bilirubin 0.2 mg/dL 05/25/21 09:21 AST 69 units/L (5-40) H 06/13/21 04:34 ALT 74 units/L (7-56) H 06/13/21 04:34 Alkaline Phosphatase 197 units/L (35-129) H 06/13/21 04:34 Lactate Dehydrogenase 445 units/L (91-180) H 05/25/21 09:21 Troponin T 0.226 ng/mL (0.00-0.029) H* D 05/25/21 15:19 C-Reactive Protein 28.90 mg/dL (0.00-1.30) H 06/07/21 14:52 NT-Pro-B Natriuret Pep 173.2 pg/mL (0-900) 05/25/21 09: Total Protein 7.5 g/dL (6.3-8.2) 06/13/21 04:34 Albumin 3.0 g/dL (3.9-5) L 06/13/21 04:34 Albumin/Globulin Ratio 0.7 % 06/13/21 04:34 Triglycerides 124 mg/dL (2-149) 05/30/21 11:19 Cholesterol 198 mg/dL (50-199) 05/25/21 15:19 LDL Cholesterol Direct 80 mg/dL (50-130) 05/25/21 15:19 HDL Cholesterol 64 mg/dL (40-59) H 05/25/21 15:19 Cholesterol/HDL Ratio 3.09 % 05/25/21 15:19 Procalcitonin 0.36 ng/mL (<0.15) 06/07/21 14:52 Arterial Blood Glucose 277 mg/dL (65-95) H 06/13/21 11:07 Arterial Blood Ionized Calcium 4.6 mg/dL (4.6-5.3) 06/02/21 04:13 Urine Color Yellow (Yellow) 06/15/21 Unknown Urine Turbidity Slightly-cloudy (Clear) 06/15/21 Unknown Urine pH 6.0 (5.0-7.0) 06/15/21 Unknown Ur Specific [place] 1.013 (1.003-1.030) 06/15/21 Unknown Urine Protein <15 mg/dl mg/dL (Negative) 06/15/21 Unknown Urine Glucose (UA) Neg mg/dL (Negative) 06/15/21 Unknown Urine Ketones Neg mg/dL (Negative) 06/15/21 Unknown Urine Blood Mod (Negative) 06/15/21 Unknown Urine Nitrite Neg (Negative) 06/15/21 Unknown Ur Reducing Substances Not Reportable 06/15/21 Unknown Urine Bilirubin Neg (Negative) 06/15/21 Unknown Urine Ictotest Not Reportable 06/15/21 Unknown Urine Urobilinogen < 2.0 mg/dL (<2.0) 06/15/21 Unknown Ur Leukocyte Esterase Mod (Negative) 06/15/21 Unknown Urine WBC (Auto) 3.0 /HPF (0.0-6.0) 06/15/21 Unknown Urine RBC (Auto) 3.0 /HPF (0.0-6.0) 06/15/21 Unknown U Epithel Cells (Auto) 2.0 /HPF (0-13.0) 06/15/21 Unknown Urine Bacteria (Auto) 1+ /HPF (Negative) 06/15/21 Unknown Urine Mucus Few /HPF 06/15/21 Unknown Urine Yeast (Budding) Few /HPF 06/15/21 Unknown Urine Osmolality 430 Mosm/kg 06/15/21 Unknown Urine Creatinine 74.7 mg/dL (0.1-20.0) H 06/15/21 Unknown Urine Sodium 14 mmol/L 06/15/21 Unknown Coronavirus (PCR) Negative (Negative) 05/30/21 08:15 Blood Type O POSITIVE 06/15/21 08:00 Antibody Screen Negative 06/15/21 08:00 Microbiology: Microbiology 06/15/21 07:56 Peripheral/Venous Blood Culture - Preliminary NO GROWTH AFTER 72 HOURS 06/15/21 07:56 Peripheral/Venous Blood Culture - Preliminary NO GROWTH AFTER 72 HOURS 06/15/21 08:07 Tracheal Aspirate Sputum Culture - Preliminary Gram Negative Luis Tan/IV: Voiding Method External Female Catheter Active Medications - Current Medications Current Medications: Generic Name Dose Route Start Last Admin Trade Name Freq PRN Reason Stop Dose Admin Acetaminophen 650 mg 05/25/21 13:48 05/28/21 04:14 Acetaminophen 325 Mg Tab PO 650 mg Q6H PRN Administration Pain MILD(1-3)/Fever >100.5/SOTOMAYOR Lipase/Protease/Amylase 1 each 05/26/21 10:00 Lipase 10,500/Protease 25,000/Amylase 43,750 (Units) Dr Munguia FEEDTUBE PRN PRN For Clogged Feeding Tube Apixaban 5 mg 06/16/21 22:00 06/18/21 09:15 Apixaban 5 Mg Tab PO 5 mg Q12HR ABDIRAHMAN Administration Protocol Bisacodyl 10 mg 06/08/21 10:00 Bisacodyl 10 Mg Rect Supp SC QDAY PRN Constipation Dextrose 50 ml 05/28/21 14:28 Dextrose 50% In Water (25gm) 50 Ml Syringe IV Q30MIN PRN Hypoglycemia Protocol Docusate Sodium 100 mg 06/08/21 10:00 06/18/21 09:14 Docusate Sodium 100 Mg/10 Ml Oral Liqd PO 100 mg BID ABDIRAHMAN Administration Doxazosin Mesylate 2 mg 06/01/21 12:00 06/18/21 09:16 Doxazosin 1 Mg Tab PO 2 mg BID ABDIRAHMAN Administration Famotidine 20 mg 05/29/21 10:00 06/18/21 09:14 Famotidine 20 Mg Tab FEEDTUBE 20 mg BID ABDIRAHMAN Administration Hydralazine HCl 10 mg 06/01/21 11:43 06/07/21 17:23 Hydralazine 20 Mg/1 Ml Inj IV 10 mg Q4HR PRN Administration SBP >160 Hydralazine HCl 50 mg 06/03/21 22:00 06/18/21 05:47 Hydralazine 25 Mg Tab PO 50 mg Q8HR ABDIRAHMAN Administration Hydrophilic Ointment 1 applic 05/25/21 19:04 Lip Therapy Vaseline TP Q2HR PRN Dry Lips Cefepime HCl 2 gm in 100 mls @ 200 mls/hr 06/17/21 16:00 06/18/21 04:00 Cefepime/Ns 2 Gm/100 Ml IV 200 mls/hr Q12H ABDIRAHMAN Administration Insulin Glargine 30 units 06/15/21 22:00 06/17/21 22:45 Insulin Glargine 100 Units/Ml SUB-Q 30 units QHS ABDIRAHMAN Administration Insulin Human Lispro 0 unit 05/29/21 12:00 06/18/21 05:48 Insulin Lispro 100 Unit/Ml SUB-Q 3 unit Q6HR ABDIRAHMAN Administration Protocol Labetalol HCl 300 mg 06/03/21 13:40 06/18/21 09:15 Labetalol 100 Mg Tab PO 300 mg BID ABDIRAHMAN Administration Levetiracetam 250 mg 06/01/21 22:00 06/18/21 09:14 Levetiracetam 500 Mg/5 Ml Oral Liqd FEEDTUBE 250 mg Q12HR ABDIRAHMAN Administration Multi-Ingred Cream/Lotion/Oil/Oint 1 applic 05/25/21 19:04 Mineral Oil/Petrolatum, White Ophth Oint 3.5 Gm OU Q4HR PRN Dry Eye(s) Polyethylene Glycol 17 gm 06/05/21 11:00 06/18/21 09:16 Polyethylene Glycol 3350 17 Gm Powder PO 17 gm QDAY ABDIRAHMAN Administration Scopolamine 1 each 06/20/21 10:00 Scopolamine Transdermal Patch 72 Hr TD Q3D ABDIRAHMAN Senna/Docusate Sodium 1 tab 05/25/21 22:00 06/18/21 09:16 Sennosides/Docusate Sodium 8.6/50 Mg Tab FEEDTUBE 1 tab BID ABDIRAHMAN Administration Simple Syrup 15 ml 05/26/21 10:00 Simple Syrup 15 Ml FEEDTUBE PRN PRN Hypoglycemia Simple Syrup 30 ml 05/26/21 10:00 Simple Syrup 15 Ml FEEDTUBE PRN PRN Hypoglycemia Sodium Bicarbonate 325 mg 05/26/21 10:00 Sodium Bicarbonate 325 Mg Tab FEEDTUBE PRN PRN For Clogged Feeding Tube Sodium Chloride 10 ml 05/25/21 22:00 06/17/21 11:40 Sodium Chloride 0.9% 10 Ml Flush Syringe IV 10 ml BID ABDIRAHMAN Administration Sodium Chloride 10 ml 05/25/21 13:48 06/04/21 03:57 Sodium Chloride 0.9% 10 Ml Flush Syringe IV 10 ml PRN PRN Administration LINE FLUSH Valsartan 160 mg 06/11/21 10:00 06/18/21 09:15 Valsartan 160mg Tab PO 160 mg BID ABDIRAHMAN Administration Nutrition/Malnutrition Assess - Dietary Evaluation Nutrition/Malnutrition Findings: Nutrition Notes Start: 05/26/21 09:00 Freq: Status: Active Protocol: Document 06/13/21 10:34 GB (Rec: 06/13/21 10:47 GB [email or web address]) Nutrition Notes Need for Assessment generated from: MD Order Initial or Follow up Reassessment Current Diagnosis COPD,Diabetes,Sepsis, Hypertension,Respiratory Failure Other Pertinent Diagnosis cardiac arrest, seizure disorder, (06/12: Trach/PEG) Labs/Tests 06/13: Na 149, K 5.1, BUN 52, creatinine 1.6, glucose 231, AST 69, ALT 74, AlkP 197 Pertinent Medications NaCl Height 5 ft 4 in Weight 63 kg [place] Body Weight (kg) 54.54 BMI 23.8 Weight change and time frame -6.6% since admission No new weights after 06/07 Weight Status Appropriate Subjective/Other Information 06/12: Trach/PEG 06/12: TF formula changed to glucerna 1.2 r/t altered labs and now with trach/peg Last BM 06/10 Percent of energy/protein needs met: TF goal rate meets 75% or greater of estimated energy needs Burn Absent Trauma Absent GI Symptoms None Difficulty In Swallowing Food Allergy No Current % PO Other Minimum of two criteria No #1 Nutrition Diagnosis Inadequate oral intake Comments: 06/02: On vent. TF continues. 06/07: Ventilation continues, TF continues. 06/13: Trach/PEG on 06/12, change formula to glucerna 1.2 Etiology ARF As Evidenced by Signs and Symptoms pt on vent and unable to consume PO Diagnosis Progress(for reassessment Continues documentation) Is patient on ventilator? Yes Is Patient Ambulatory and/or Out of Bed No REE-([facility]-confined to bed) 1385.676 Kcal/Kg value to use for calculation 23 Approximate Energy Requirements Using 1449 kcal/Kg Calculation Used for Recommendations Kcal/kg Additional Notes Protein: (1-1.5g/kg @63kg) 63- 95g Fluid: 1 ml/kcal or per MD Nutrition Intervention Change Diet Order: Continue NPO Nutrition Support: Vital AF 1.2 at 50 ml/hr Flush 75 ml q4h 06/07: continues 06/13: Trach/PEG on 06/12, change formula to glucerna 1.2 Kcal 1,440 Protein (gm) 72 Fat (gm) 72 Fluid (mL) 966 Goal #1 Meet 75% or greater of protein and energy needs via TF 06/13: TF at goal meets 100% estimated energy needs: met, continues Goal #2 Change TF formula. Complete current vital 1.2 bottle, change to glucerna 1.2 r/t DM and related lab results Follow-Up By: 06/19/21 Additional Comments f/u: formula change to glucerna 1.2, at goal 50ml/hr, weight, labs
--- NOTE | 2021-06-18 14:57 | Progress Note ---
Assessment and Plan Acute hypoxemic respiratory failure on MVS Cardiopulmonary arrest wtih ROSC Seizure disorder Sepsis Toxic metabolic encephalopathy, possible anoxia Atrial fibrillation with RVR Metabolic acidosis Bilateral lower lobe infiltrates - continue t-piece trials as tolerated (shooting for 12 hours today) - CBC reviewed and addressed - continue anticoagulation with Eliquis - continue care as below otherwise; - LTAC evaluation is appropriate - continue scopolamine patch for secretions - azotemia per nephrology team (non-oliguric) - daily SAT and SBT assessment as tolerated - continue to wean supplemental oxygen for target O2 sat's > 90% acutely - VAP bundle addressed - continue lung protective strategies - continue bronchodilators with pulmonary hygiene per RT - wean per pulmonary driven protocols otherwise - continue accuchecks with glycemic control per SSI (While critically ill target blood glucose of 140-180 mg/dL; avoid hypoglycemia) - sedation prn for target RASS 0 to -1 - avoid nephrotoxins, renally dose all medications - continue scopolamine for secretion control - continue Keppra as AED - continue to avoid benzodiazepine's, reduce the possibility of delirium - AB's per ID rec's - prn analgesia per CPOT score - Maintenance of sleep-wake cycle, avoid delirium - continue enteral nutritional support at goal rate as tolerated - G.I. & VTE prophylaxis - PT/OT/ROM exercises - continue mobility protocols for pressure ulcer prophylaxis - Monitor hemodynamics closely - continue other care per attending / other consultants - discharge planning ongoing concurrently COVID SPECIFIC INTERVENTIONS - COVID-19 PCR negative .... Re-evaluate in am & prn CONDITION: CRITICAL PROGNOSIS: GUARDED CODE STATUS: FULL CODE The high probability of a clinically significant, sudden or life-threatening deterioration of the [respiratory, cardiovascular, renal & neurologic] system(s) required my full and direct attention, intervention and personal management. The aggregate critical care time was [32] minutes without overlap. Time includes spent on; [x] Data Review and interpretation [x] Patient assessment and monitoring of vital signs [x] Documentation [x] Medication orders and management Subjective Date of service: 06/18/21 Principal diagnosis: Ac hypoxemic resp failure; Cardiac arrest; Seizures; Sepsis; AMS; A-Fib RVR Interval history: Patient is seen today for: Acute hypoxemic respiratory failure; Cardiac arrest wtih ROSC; Seizure disorder; Sepsis; AMS; A-Fib with RVR Seen and examined at bedside; 24hour events reviewed; nursing and respiratory care staff consulted; no adverse overnight events reported to me; resting in bed; rested on MVS; on t-piece trial and tolerating well so far today; no new i ssues otherwise Objective Vital Signs - 12hr 06/18/21 06/18/21 06/18/21 03:00 03:30 04:00 Temperature 99.5 F Pulse Rate 78 78 85 Pulse Rate [ 72 From Monitor] Respiratory 16 16 18 Rate Blood Pressure 160/62 139/70 150/63 O2 Sat by Pulse 100 100 96 Oximetry O2 Sat by Pulse Oximetry [ Assessment] 06/18/21 06/18/21 06/18/21 04:13 04:30 04:45 Temperature Pulse Rate 76 77 Pulse Rate [ From Monitor] Respiratory 14 Rate Blood Pressure 150/63 162/55 O2 Sat by Pulse 100 100 Oximetry O2 Sat by Pulse 100 Oximetry [ Assessment] 06/18/21 06/18/21 06/18/21 05:00 05:30 05:47 Temperature Pulse Rate 81 81 79 Pulse Rate [ From Monitor] Respiratory 19 15 Rate Blood Pressure 166/62 173/68 184/73 O2 Sat by Pulse 100 100 Oximetry O2 Sat by Pulse Oximetry [ Assessment] 06/18/21 06/18/21 06/18/21 06:00 06:30 07:00 Temperature Pulse Rate 74 87 84 Pulse Rate [ From Monitor] Respiratory 12 22 20 Rate Blood Pressure 159/64 163/75 163/71 O2 Sat by Pulse 100 100 100 Oximetry O2 Sat by Pulse Oximetry [ Assessment] 06/18/21 06/18/21 06/18/21 07:30 08:00 08:30 Temperature 99.1 F Pulse Rate 83 80 86 Pulse Rate [ 89 From Monitor] Respiratory 19 18 19 Rate Blood Pressure 159/67 151/71 171/70 O2 Sat by Pulse 100 100 100 Oximetry O2 Sat by Pulse 100 Oximetry [ Assessment] 06/18/21 06/18/21 06/18/21 09:00 09:15 09:16 Temperature Pulse Rate 88 90 88 Pulse Rate [ From Monitor] Respiratory 21 Rate Blood Pressure 170/74 161/74 161/74 O2 Sat by Pulse 100 Oximetry O2 Sat by Pulse Oximetry [ Assessment] 06/18/21 06/18/21 06/18/21 09:30 10:00 10:30 Temperature Pulse Rate 89 82 75 Pulse Rate [ From Monitor] Respiratory 27 H 25 H 15 Rate Blood Pressure 165/66 144/68 141/63 O2 Sat by Pulse 100 100 100 Oximetry O2 Sat by Pulse Oximetry [ Assessment] 06/18/21 06/18/21 06/18/21 11:00 11:02 11:30 Temperature Pulse Rate 79 77 78 Pulse Rate [ From Monitor] Respiratory 14 18 28 H Rate Blood Pressure 145/64 145/34 132/63 O2 Sat by Pulse 100 100 100 Oximetry O2 Sat by Pulse Oximetry [ Assessment] 06/18/21 06/18/21 12:00 13:13 Temperature 99.2 F Pulse Rate 76 78 Pulse Rate [ 75 From Monitor] Respiratory 26 H 26 H Rate Blood Pressure 141/60 120/54 O2 Sat by Pulse 100 100 Oximetry O2 Sat by Pulse Oximetry [ Assessment] Constitutional: no acute distress, other (elderly female with mildly increased respiratory effort at rest on MVS) Eyes: non-icteric ENT: oropharynx moist, other (+ midline tracheostomy with mild secretions) Neck: supple, no lymphadenopathy Effort: mildly labored Ascultation: Bilateral: diminished breath sounds, rhonchi (scant) Percussion: Bilateral: not dull Cardiovascular: regular rate and rhythm, other (S1,S2) Gastrointestinal: normoactive bowel sounds, soft, non-tender, non-distended (protuberant), other (+ PEG tube) Integumentary: normal Extremities: no cyanosis, pulses normal, no ischemia or petechiae, other (Right femoral CVL) Neurologic: pupils equal and round, unable to assess, other (encephalopathic) Psychiatric: other (unable to assess) CBC and BMP: 06/19/21 06:20 06/19/21 06:20 ABG, PT/INR, D-dimer: ABG ABG pH 7.471 (7.320-7.450) H 06/15/21 10:19 POC ABG pCO2 40.4 mmHg (32.0-48.0) 06/15/21 10:19 ABG pCO2 30.3 mm Hg 05/29/21 05:28 POC ABG pO2 90.1 mmHg (83-108) 06/15/21 10:19 ABG pO2 96.2 mm Hg (80.0-90.0) H 05/29/21 05:28 POC ABG HCO3 28.8 10/07/21 10:19 ABG O2 Saturation 97.4 (0-100) 06/15/21 10:19 PT/INR, D-dimer PT 14.5 Sec. (12.2-14.9) 06/16/21 18:51 INR 1.08 (0.87-1.13) 06/16/21 18:51 D-Dimer > 98132 ng/mlDDU (0-234) H 05/25/21 09:21 Abnormal lab findings: Abnormal Labs 05/25/21 05/25/21 05/25/21 09:07 09:21 09:21 WBC 17.1 H RBC Hgb Hct MCV 106 H MCH 33 H MCHC RDW 15.6 H Russell # (Auto) Seg Neutrophils % Seg Neuts % (Manual) Lymphocytes % (Manual) Monocytes % (Manual) Seg Neutrophils # Seg Neutrophils # Man 10.1 H Lymphocytes # (Manual) 5.6 H Monocytes # (Manual) PT 15.0 H APTT 44.3 H D-Dimer > 32667 H Heparin Anti-Xa Level ABG pH 7.116 L POC ABG pCO2 POC ABG pO2 ABG pO2 ABG Hemoglobin ABG Oxyhemoglobin 93.7 L ABG Sodium ABG Potassium ABG Chloride ABG Glucose 395 H Carboxyhemoglobin Sodium Potassium Chloride Carbon Dioxide BUN Creatinine Glucose POC Glucose Lactic Acid Calcium Phosphorus Magnesium Ferritin AST ALT Alkaline Phosphatase Lactate Dehydrogenase Troponin T C-Reactive Protein Total Protein Albumin HDL Cholesterol Arterial Blood Glucose 395 H Arterial Blood Ionized Calcium 4.4 L Urine WBC (Auto) Urine Creatinine 05/25/21 05/25/21 05/25/21 09:21 09:21 09:21 WBC RBC Hgb Hct MCV MCH MCHC RDW Russell # (Auto) Seg Neutrophils % Seg Neuts % (Manual) Lymphocytes % (Manual) Monocytes % (Manual) Seg Neutrophils # Seg Neutrophils # Man Lymphocytes # (Manual) Monocytes # (Manual) PT APTT D-Dimer Heparin Anti-Xa Level ABG pH POC ABG pCO2 POC ABG pO2 ABG pO2 ABG Hemoglobin ABG Oxyhemoglobin ABG Sodium ABG Potassium ABG Chloride ABG Glucose Carboxyhemoglobin Sodium Potassium Chloride Carbon Dioxide 10 L BUN Creatinine Glucose 423 H 424 H POC Glucose Lactic Acid Calcium 8.2 L Phosphorus Magnesium Ferritin 321.6 H AST 162 H ALT 119 H Alkaline Phosphatase Lactate Dehydrogenase 445 H Troponin T C-Reactive Protein Total Protein 5.6 L Albumin 3.2 L HDL Cholesterol Arterial Blood Glucose Arterial Blood Ionized Calcium Urine WBC (Auto) Urine Creatinine 05/25/21 05/25/21 05/25/21 09:35 10:42 11:12 WBC RBC Hgb Hct MCV MCH MCHC RDW Russell # (Auto) Seg Neutrophils % Seg Neuts % (Manual) Lymphocytes % (Manual) Monocytes % (Manual) Seg Neutrophils # Seg Neutrophils # Man Lymphocytes # (Manual) Monocytes # (Manual) PT APTT D-Dimer Heparin Anti-Xa Level ABG pH POC ABG pCO2 POC ABG pO2 ABG pO2 ABG Hemoglobin ABG Oxyhemoglobin ABG Sodium ABG Potassium ABG Chloride ABG Glucose Carboxyhemoglobin Sodium Potassium Chloride Carbon Dioxide BUN Creatinine Glucose POC Glucose Lactic Acid 16.70 H* 7.70 H* Calcium Phosphorus Magnesium Ferritin AST ALT Alkaline Phosphatase Lactate Dehydrogenase Troponin T C-Reactive Protein Total Protein Albumin HDL Cholesterol Arterial Blood Glucose Arterial Blood Ionized Calcium Urine WBC (Auto) 11.0 H Urine Creatinine 05/25/21 05/25/21 05/25/21 14:07 15:19 19:04 WBC RBC Hgb Hct MCV MCH MCHC RDW Russell # (Auto) Seg Neutrophils % Seg Neuts % (Manual) Lymphocytes % (Manual) Monocytes % (Manual) Seg Neutrophils # Seg Neutrophils # Man Lymphocytes # (Manual) Monocytes # (Manual) PT APTT D-Dimer Heparin Anti-Xa Level ABG pH POC ABG pCO2 POC ABG pO2 172.2 H ABG pO2 ABG Hemoglobin ABG Oxyhemoglobin 98.7 H ABG Sodium 135.7 L ABG Potassium ABG Chloride ABG Glucose 255 H Carboxyhemoglobin 0.3 L Sodium Potassium Chloride Carbon Dioxide BUN Creatinine Glucose POC Glucose Lactic Acid 3.90 H* Calcium Phosphorus Magnesium Ferritin AST ALT Alkaline Phosphatase Lactate Dehydrogenase Troponin T 0.226 H* D C-Reactive Protein Total Protein Albumin HDL Cholesterol 64 H Arterial Blood Glucose 255 H Arterial Blood Ionized Calcium 3.8 L Urine WBC (Auto) Urine Creatinine 05/25/21 05/25/21 05/26/21 21:16 21:16 04:00 WBC RBC Hgb Hct MCV MCH MCHC RDW Russell # (Auto) Seg Neutrophils % Seg Neuts % (Manual) Lymphocytes % (Manual) Monocytes % (Manual) Seg Neutrophils # Seg Neutrophils # Man Lymphocytes # (Manual) Monocytes # (Manual) PT APTT D-Dimer Heparin Anti-Xa Level 1.19 H ABG pH 7.547 H POC ABG pCO2 POC ABG pO2 ABG pO2 ABG Hemoglobin 11.9 L ABG Oxyhemoglobin ABG Sodium 133.2 L ABG Potassium 3.1 L ABG Chloride ABG Glucose 243 H Carboxyhemoglobin 0.3 L Sodium Potassium Chloride Carbon Dioxide BUN Creatinine Glucose POC Glucose Lactic Acid 2.50 H* Calcium Phosphorus Magnesium Ferritin AST ALT Alkaline Phosphatase Lactate Dehydrogenase Troponin T C-Reactive Protein Total Protein Albumin HDL Cholesterol Arterial Blood Glucose 243 H Arterial Blood Ionized Calcium Urine WBC (Auto) Urine Creatinine 05/26/21 05/26/21 05/26/21 05:49 05:49 17:33 WBC RBC Hgb Hct MCV MCH MCHC RDW Russell # (Auto) Seg Neutrophils % Seg Neuts % (Manual) Lymphocytes % (Manual) Monocytes % (Manual) Seg Neutrophils # Seg Neutrophils # Man Lymphocytes # (Manual) Monocytes # (Manual) PT APTT D-Dimer Heparin Anti-Xa Level ABG pH POC ABG pCO2 POC ABG pO2 ABG pO2 ABG Hemoglobin ABG Oxyhemoglobin ABG Sodium ABG Potassium ABG Chloride ABG Glucose Carboxyhemoglobin Sodium Potassium Chloride Carbon Dioxide BUN Creatinine Glucose 226 H POC Glucose 156 H Lactic Acid 2.30 H* Calcium 7.2 L Phosphorus Magnesium Ferritin AST 111 H ALT 97 H Alkaline Phosphatase Lactate Dehydrogenase Troponin T C-Reactive Protein Total Protein 5.4 L Albumin 3.3 L HDL Cholesterol Arterial Blood Glucose Arterial Blood Ionized Calcium Urine WBC (Auto) Urine Creatinine 05/27/21 05/27/21 05/27/21 02:11 02:11 02:11 WBC 14.3 H RBC 3.27 L Hgb Hct MCV 99 H MCH 33 H MCHC RDW 15.3 H Russell # (Auto) 1.0 H Seg Neutrophils % Seg Neuts % (Manual) Lymphocytes % (Manual) Monocytes % (Manual) Seg Neutrophils # 10.0 H Seg Neutrophils # Man Lymphocytes # (Manual) Monocytes # (Manual) PT APTT D-Dimer Heparin Anti-Xa Level 0.80 H ABG pH POC ABG pCO2 POC ABG pO2 ABG pO2 ABG Hemoglobin ABG Oxyhemoglobin ABG Sodium ABG Potassium ABG Chloride ABG Glucose Carboxyhemoglobin Sodium Potassium 2.9 L* D Chloride Carbon Dioxide 31 H BUN 6 L Creatinine Glucose 215 H POC Glucose Lactic Acid Calcium 8.1 L Phosphorus Magnesium Ferritin AST ALT Alkaline Phosphatase Lactate Dehydrogenase Troponin T C-Reactive Protein Total Protein Albumin HDL Cholesterol Arterial Blood Glucose Arterial Blood Ionized Calcium Urine WBC (Auto) Urine Creatinine 05/27/21 05/27/21 05/27/21 11:24 12:49 18:06 WBC RBC Hgb Hct MCV MCH MCHC RDW Russell # (Auto) Seg Neutrophils % Seg Neuts % (Manual) Lymphocytes % (Manual) Monocytes % (Manual) Seg Neutrophils # Seg Neutrophils # Man Lymphocytes # (Manual) Monocytes # (Manual) PT APTT D-Dimer Heparin Anti-Xa Level ABG pH POC ABG pCO2 POC ABG pO2 ABG pO2 ABG Hemoglobin ABG Oxyhemoglobin ABG Sodium ABG Potassium ABG Chloride ABG Glucose Carboxyhemoglobin Sodium Potassium Chloride Carbon Dioxide BUN Creatinine Glucose POC Glucose 151 H 165 H 137 H Lactic Acid Calcium Phosphorus Magnesium Ferritin AST ALT Alkaline Phosphatase Lactate Dehydrogenase Troponin T C-Reactive Protein Total Protein Albumin HDL Cholesterol Arterial Blood Glucose Arterial Blood Ionized Calcium Urine WBC (Auto) Urine Creatinine 05/28/21 05/28/21 05/28/21 04:00 04:00 06:02 WBC 13.5 H RBC 3.05 L Hgb Hct MCV 100 H MCH 34 H MCHC RDW Russell # (Auto) 0.9 H Seg Neutrophils % 78.2 H Seg Neuts % (Manual) Lymphocytes % (Manual) Monocytes % (Manual) Seg Neutrophils # 10.6 H Seg Neutrophils # Man Lymphocytes # (Manual) Monocytes # (Manual) PT APTT D-Dimer Heparin Anti-Xa Level ABG pH 7.507 H POC ABG pCO2 POC ABG pO2 ABG pO2 ABG Hemoglobin 10.6 L ABG Oxyhemoglobin ABG Sodium 129.4 L ABG Potassium ABG Chloride ABG Glucose 243 H Carboxyhemoglobin 0.2 L Sodium 136 L D Potassium Chloride Carbon Dioxide BUN Creatinine Glucose 215 H POC Glucose Lactic Acid Calcium Phosphorus Magnesium Ferritin AST ALT Alkaline Phosphatase Lactate Dehydrogenase Troponin T C-Reactive Protein Total Protein Albumin HDL Cholesterol Arterial Blood Glucose 243 H Arterial Blood Ionized Calcium 4.1 L Urine WBC (Auto) Urine Creatinine 05/28/21 05/28/21 05/29/21 11:27 23:02 04:30 WBC RBC Hgb 9.3 L Hct 26.7 L MCV MCH MCHC RDW Russell # (Auto) Seg Neutrophils % Seg Neuts % (Manual) Lymphocytes % (Manual) Monocytes % (Manual) Seg Neutrophils # Seg Neutrophils # Man Lymphocytes # (Manual) Monocytes # (Manual) PT APTT D-Dimer Heparin Anti-Xa Level ABG pH POC ABG pCO2 POC ABG pO2 ABG pO2 ABG Hemoglobin ABG Oxyhemoglobin ABG Sodium ABG Potassium ABG Chloride ABG Glucose Carboxyhemoglobin Sodium Potassium Chloride Carbon Dioxide BUN Creatinine Glucose POC Glucose 220 H 212 H Lactic Acid Calcium Phosphorus Magnesium Ferritin AST ALT Alkaline Phosphatase Lactate Dehydrogenase Troponin T C-Reactive Protein Total Protein Albumin HDL Cholesterol Arterial Blood Glucose Arterial Blood Ionized Calcium Urine WBC (Auto) Urine Creatinine 05/29/21 05/29/21 05/29/21 05:02 05:28 12:55 WBC RBC Hgb Hct MCV MCH MCHC RDW Russell # (Auto) Seg Neutrophils % Seg Neuts % (Manual) Lymphocytes % (Manual) Monocytes % (Manual) Seg Neutrophils # Seg Neutrophils # Man Lymphocytes # (Manual) Monocytes # (Manual) PT APTT D-Dimer Heparin Anti-Xa Level ABG pH 7.516 H POC ABG pCO2 POC ABG pO2 ABG pO2 96.2 H ABG Hemoglobin 7.5 L ABG Oxyhemoglobin ABG Sodium ABG Potassium ABG Chloride ABG Glucose Carboxyhemoglobin Sodium Potassium Chloride Carbon Dioxide BUN Creatinine Glucose POC Glucose 197 H 251 H Lactic Acid Calcium Phosphorus Magnesium Ferritin AST ALT Alkaline Phosphatase Lactate Dehydrogenase Troponin T C-Reactive Protein Total Protein Albumin HDL Cholesterol Arterial Blood Glucose Arterial Blood Ionized Calcium Urine WBC (Auto) Urine Creatinine 05/29/21 05/29/21 05/30/21 18:23 23:31 04:10 WBC RBC Hgb Hct MCV MCH MCHC RDW Russell # (Auto) Seg Neutrophils % Seg Neuts % (Manual) Lymphocytes % (Manual) Monocytes % (Manual) Seg Neutrophils # Seg Neutrophils # Man Lymphocytes # (Manual) Monocytes # (Manual) PT APTT D-Dimer Heparin Anti-Xa Level ABG pH 7.532 H POC ABG pCO2 30.0 L POC ABG pO2 78.5 L ABG pO2 ABG Hemoglobin 11.3 L ABG Oxyhemoglobin ABG Sodium 126.7 L ABG Potassium ABG Chloride 94.0 L ABG Glucose 270 H Carboxyhemoglobin 0.4 L Sodium Potassium Chloride Carbon Dioxide BUN Creatinine Glucose POC Glucose 236 H 252 H Lactic Acid Calcium Phosphorus Magnesium Ferritin AST ALT Alkaline Phosphatase Lactate Dehydrogenase Troponin T C-Reactive Protein Total Protein Albumin HDL Cholesterol Arterial Blood Glucose 270 H Arterial Blood Ionized Calcium 4.4 L Urine WBC (Auto) Urine Creatinine 05/30/21 05/30/21 05/30/21 05:06 06:23 11:15 WBC RBC Hgb Hct MCV MCH MCHC RDW Russell # (Auto) Seg Neutrophils % Seg Neuts % (Manual) Lymphocytes % (Manual) Monocytes % (Manual) Seg Neutrophils # Seg Neutrophils # Man Lymphocytes # (Manual) Monocytes # (Manual) PT APTT D-Dimer Heparin Anti-Xa Level ABG pH POC ABG pCO2 POC ABG pO2 ABG pO2 ABG Hemoglobin ABG Oxyhemoglobin ABG Sodium ABG Potassium ABG Chloride ABG Glucose Carboxyhemoglobin Sodium 126 L D Potassium Chloride 91.9 L Carbon Dioxide 20 L D BUN Creatinine 0.4 L Glucose 274 H POC Glucose 242 H 346 H Lactic Acid Calcium Phosphorus Magnesium Ferritin AST ALT Alkaline Phosphatase Lactate Dehydrogenase Troponin T C-Reactive Protein Total Protein Albumin HDL Cholesterol Arterial Blood Glucose Arterial Blood Ionized Calcium Urine WBC (Auto) Urine Creatinine 05/30/21 05/30/21 05/30/21 11:19 11:19 11:19 WBC 18.9 H RBC 3.36 L Hgb Hct MCV 102 H MCH 33 H MCHC RDW 15.5 H Russell # (Auto) Seg Neutrophils % Seg Neuts % (Manual) Lymphocytes % (Manual) Monocytes % (Manual) Seg Neutrophils # Seg Neutrophils # Man Lymphocytes # (Manual) Monocytes # (Manual) PT APTT D-Dimer Heparin Anti-Xa Level < 0.10 L ABG pH POC ABG pCO2 POC ABG pO2 ABG pO2 ABG Hemoglobin ABG Oxyhemoglobin ABG Sodium ABG Potassium ABG Chloride ABG Glucose Carboxyhemoglobin Sodium 124 L Potassium Chloride Carbon Dioxide BUN Creatinine Glucose POC Glucose Lactic Acid Calcium Phosphorus Magnesium Ferritin AST ALT Alkaline Phosphatase Lactate Dehydrogenase Troponin T C-Reactive Protein Total Protein Albumin HDL Cholesterol Arterial Blood Glucose Arterial Blood Ionized Calcium Urine WBC (Auto) Urine Creatinine 05/30/21 05/30/21 05/31/21 17:02 23:27 03:37 WBC RBC Hgb Hct MCV MCH MCHC RDW Russell # (Auto) Seg Neutrophils % Seg Neuts % (Manual) Lymphocytes % (Manual) Monocytes % (Manual) Seg Neutrophils # Seg Neutrophils # Man Lymphocytes # (Manual) Monocytes # (Manual) PT APTT D-Dimer Heparin Anti-Xa Level ABG pH POC ABG pCO2 POC ABG pO2 ABG pO2 ABG Hemoglobin 11.6 L ABG Oxyhemoglobin ABG Sodium 130.0 L ABG Potassium ABG Chloride 95.0 L ABG Glucose 292 H Carboxyhemoglobin Sodium Potassium Chloride Carbon Dioxide BUN Creatinine Glucose POC Glucose 270 H 237 H Lactic Acid Calcium Phosphorus Magnesium Ferritin AST ALT Alkaline Phosphatase Lactate Dehydrogenase Troponin T C-Reactive Protein Total Protein Albumin HDL Cholesterol Arterial Blood Glucose 292 H Arterial Blood Ionized Calcium Urine WBC (Auto) Urine Creatinine 05/31/21 05/31/21 05/31/21 04:00 04:00 05:20 WBC 20.9 H RBC 3.13 L Hgb Hct MCV 99 H MCH 34 H MCHC RDW Russell # (Auto) Seg Neutrophils % Seg Neuts % (Manual) 81.0 H Lymphocytes % (Manual) 8.0 L Monocytes % (Manual) 9.0 H Seg Neutrophils # Seg Neutrophils # Man 16.9 H Lymphocytes # (Manual) Monocytes # (Manual) 1.9 H PT APTT D-Dimer Heparin Anti-Xa Level ABG pH POC ABG pCO2 POC ABG pO2 ABG pO2 ABG Hemoglobin ABG Oxyhemoglobin ABG Sodium ABG Potassium ABG Chloride ABG Glucose Carboxyhemoglobin Sodium 133 L D Potassium Chloride 95.4 L Carbon Dioxide 21 L BUN 30 H Creatinine 0.5 L Glucose 305 H POC Glucose 269 H Lactic Acid Calcium Phosphorus Magnesium Ferritin AST ALT Alkaline Phosphatase Lactate Dehydrogenase Troponin T C-Reactive Protein Total Protein Albumin HDL Cholesterol Arterial Blood Glucose Arterial Blood Ionized Calcium Urine WBC (Auto) Urine Creatinine 05/31/21 05/31/21 05/31/21 11:40 18:16 23:25 WBC RBC Hgb Hct MCV MCH MCHC RDW Russell # (Auto) Seg Neutrophils % Seg Neuts % (Manual) Lymphocytes % (Manual) Monocytes % (Manual) Seg Neutrophils # Seg Neutrophils # Man Lymphocytes # (Manual) Monocytes # (Manual) PT APTT D-Dimer Heparin Anti-Xa Level ABG pH POC ABG pCO2 POC ABG pO2 ABG pO2 ABG Hemoglobin ABG Oxyhemoglobin ABG Sodium ABG Potassium ABG Chloride ABG Glucose Carboxyhemoglobin Sodium Potassium Chloride Carbon Dioxide BUN Creatinine Glucose POC Glucose 364 H 250 H 231 H Lactic Acid Calcium Phosphorus Magnesium Ferritin AST ALT Alkaline Phosphatase Lactate Dehydrogenase Troponin T C-Reactive Protein Total Protein Albumin HDL Cholesterol Arterial Blood Glucose Arterial Blood Ionized Calcium Urine WBC (Auto) Urine Creatinine 06/01/21 06/01/21 06/01/21 04:03 04:58 04:58 WBC 20.7 H RBC 3.20 L Hgb Hct MCV 99 H MCH 34 H MCHC RDW Russell # (Auto) Seg Neutrophils % Seg Neuts % (Manual) 82.0 H Lymphocytes % (Manual) 9.0 L Monocytes % (Manual) Seg Neutrophils # Seg Neutrophils # Man 17.0 H Lymphocytes # (Manual) Monocytes # (Manual) 1.4 H PT APTT D-Dimer Heparin Anti-Xa Level 1.18 H ABG pH 7.520 H POC ABG pCO2 POC ABG pO2 66.0 L ABG pO2 ABG Hemoglobin ABG Oxyhemoglobin 92.5 L ABG Sodium 133.6 L ABG Potassium ABG Chloride ABG Glucose 250 H Carboxyhemoglobin Sodium Potassium Chloride Carbon Dioxide BUN Creatinine Glucose POC Glucose Lactic Acid Calcium Phosphorus Magnesium Ferritin AST ALT Alkaline Phosphatase Lactate Dehydrogenase Troponin T C-Reactive Protein Total Protein Albumin HDL Cholesterol Arterial Blood Glucose 250 H Arterial Blood Ionized Calcium 4.4 L Urine WBC (Auto) Urine Creatinine 06/01/21 06/01/21 06/01/21 04:58 05:29 11:39 WBC RBC Hgb Hct MCV MCH MCHC RDW Russell # (Auto) Seg Neutrophils % Seg Neuts % (Manual) Lymphocytes % (Manual) Monocytes % (Manual) Seg Neutrophils # Seg Neutrophils # Man Lymphocytes # (Manual) Monocytes # (Manual) PT APTT D-Dimer Heparin Anti-Xa Level ABG pH POC ABG pCO2 POC ABG pO2 ABG pO2 ABG Hemoglobin ABG Oxyhemoglobin ABG Sodium ABG Potassium ABG Chloride ABG Glucose Carboxyhemoglobin Sodium 131 L Potassium Chloride 95.7 L Carbon Dioxide BUN 30 H Creatinine 0.5 L Glucose 241 H POC Glucose 215 H 299 H Lactic Acid Calcium Phosphorus Magnesium Ferritin AST ALT Alkaline Phosphatase Lactate Dehydrogenase Troponin T C-Reactive Protein Total Protein Albumin HDL Cholesterol Arterial Blood Glucose Arterial Blood Ionized Calcium Urine WBC (Auto) Urine Creatinine 06/01/21 06/02/21 06/02/21 18:14 00:12 02:25 WBC 17.4 H RBC 3.09 L Hgb Hct MCV 101 H MCH 34 H MCHC RDW 15.5 H Russell # (Auto) Seg Neutrophils % Seg Neuts % (Manual) Lymphocytes % (Manual) Monocytes % (Manual) Seg Neutrophils # Seg Neutrophils # Man Lymphocytes # (Manual) Monocytes # (Manual) PT APTT D-Dimer Heparin Anti-Xa Level ABG pH POC ABG pCO2 POC ABG pO2 ABG pO2 ABG Hemoglobin ABG Oxyhemoglobin ABG Sodium ABG Potassium ABG Chloride ABG Glucose Carboxyhemoglobin Sodium Potassium Chloride Carbon Dioxide BUN Creatinine Glucose POC Glucose 215 H 175 H Lactic Acid Calcium Phosphorus Magnesium Ferritin AST ALT Alkaline Phosphatase Lactate Dehydrogenase Troponin T C-Reactive Protein Total Protein Albumin HDL Cholesterol Arterial Blood Glucose Arterial Blood Ionized Calcium Urine WBC (Auto) Urine Creatinine 06/02/21 06/02/21 06/02/21 02:25 04:13 04:58 WBC RBC Hgb Hct MCV MCH MCHC RDW Russell # (Auto) Seg Neutrophils % Seg Neuts % (Manual) Lymphocytes % (Manual) Monocytes % (Manual) Seg Neutrophils # Seg Neutrophils # Man Lymphocytes # (Manual) Monocytes # (Manual) PT APTT D-Dimer Heparin Anti-Xa Level ABG pH 7.481 H POC ABG pCO2 POC ABG pO2 80.0 L ABG pO2 ABG Hemoglobin 11.1 L ABG Oxyhemoglobin ABG Sodium 131.9 L ABG Potassium ABG Chloride ABG Glucose 231 H Carboxyhemoglobin 0.2 L Sodium 134 L Potassium Chloride 95.8 L Carbon Dioxide BUN 31 H Creatinine 0.5 L Glucose 168 H POC Glucose 230 H Lactic Acid Calcium Phosphorus Magnesium Ferritin AST ALT Alkaline Phosphatase Lactate Dehydrogenase Troponin T C-Reactive Protein Total Protein Albumin HDL Cholesterol Arterial Blood Glucose 231 H Arterial Blood Ionized Calcium Urine WBC (Auto) Urine Creatinine 06/02/21 06/02/21 06/02/21 11:27 17:47 23:53 WBC RBC Hgb Hct MCV MCH MCHC RDW Russell # (Auto) Seg Neutrophils % Seg Neuts % (Manual) Lymphocytes % (Manual) Monocytes % (Manual) Seg Neutrophils # Seg Neutrophils # Man Lymphocytes # (Manual) Monocytes # (Manual) PT APTT D-Dimer Heparin Anti-Xa Level 0.80 H ABG pH POC ABG pCO2 POC ABG pO2 ABG pO2 ABG Hemoglobin ABG Oxyhemoglobin ABG Sodium ABG Potassium ABG Chloride ABG Glucose Carboxyhemoglobin Sodium Potassium Chloride Carbon Dioxide BUN Creatinine Glucose POC Glucose 259 H 297 H Lactic Acid Calcium Phosphorus Magnesium Ferritin AST ALT Alkaline Phosphatase Lactate Dehydrogenase Troponin T C-Reactive Protein Total Protein Albumin HDL Cholesterol Arterial Blood Glucose Arterial Blood Ionized Calcium Urine WBC (Auto) Urine Creatinine 06/03/21 06/03/21 06/03/21 00:05 05:23 09:10 WBC RBC Hgb Hct MCV MCH MCHC RDW Russell # (Auto) Seg Neutrophils % Seg Neuts % (Manual) Lymphocytes % (Manual) Monocytes % (Manual) Seg Neutrophils # Seg Neutrophils # Man Lymphocytes # (Manual) Monocytes # (Manual) PT APTT D-Dimer Heparin Anti-Xa Level 0.84 H ABG pH POC ABG pCO2 POC ABG pO2 ABG pO2 ABG Hemoglobin ABG Oxyhemoglobin ABG Sodium ABG Potassium ABG Chloride ABG Glucose Carboxyhemoglobin Sodium Potassium Chloride Carbon Dioxide BUN Creatinine Glucose POC Glucose 268 H 170 H Lactic Acid Calcium Phosphorus Magnesium Ferritin AST ALT Alkaline Phosphatase Lactate Dehydrogenase Troponin T C-Reactive Protein Total Protein Albumin HDL Cholesterol Arterial Blood Glucose Arterial Blood Ionized Calcium Urine WBC (Auto) Urine Creatinine 06/03/21 06/03/21 06/03/21 12:06 20:22 23:30 WBC RBC Hgb Hct MCV MCH MCHC RDW [place] # (Auto) Seg Neutrophils % Seg Neuts % (Manual) Lymphocytes % (Manual) Monocytes % (Manual) Seg Neutrophils # Seg Neutrophils # Man Lymphocytes # (Manual) Monocytes # (Manual) PT APTT D-Dimer Heparin Anti-Xa Level ABG pH POC ABG pCO2 POC ABG pO2 ABG pO2 ABG Hemoglobin ABG Oxyhemoglobin ABG Sodium ABG Potassium ABG Chloride ABG Glucose Carboxyhemoglobin Sodium Potassium Chloride Carbon Dioxide BUN Creatinine Glucose POC Glucose 275 H 260 H 215 H Lactic Acid Calcium Phosphorus Magnesium Ferritin AST ALT Alkaline Phosphatase Lactate Dehydrogenase Troponin T C-Reactive Protein Total Protein Albumin HDL Cholesterol Arterial Blood Glucose Arterial Blood Ionized Calcium Urine WBC (Auto) Urine Creatinine 06/04/21 06/04/21 06/04/21 05:03 05:57 05:57 WBC 17.8 H RBC 2.83 L Hgb 9.6 L Hct 28.4 L MCV 100 H MCH 34 H MCHC RDW 15.5 H Russell # (Auto) Seg Neutrophils % Seg Neuts % (Manual) 83.0 H Lymphocytes % (Manual) 4.0 L Monocytes % (Manual) Seg Neutrophils # Seg Neutrophils # Man 14.8 H Lymphocytes # (Manual) 0.7 L Monocytes # (Manual) 1.1 H PT APTT D-Dimer Heparin Anti-Xa Level ABG pH POC ABG pCO2 POC ABG pO2 ABG pO2 ABG Hemoglobin ABG Oxyhemoglobin ABG Sodium ABG Potassium ABG Chloride ABG Glucose Carboxyhemoglobin Sodium 135 L Potassium Chloride 96.3 L Carbon Dioxide BUN 51 H Creatinine Glucose 275 H POC Glucose 257 H Lactic Acid Calcium Phosphorus Magnesium Ferritin AST ALT Alkaline Phosphatase Lactate Dehydrogenase Troponin T C-Reactive Protein Total Protein Albumin HDL Cholesterol Arterial Blood Glucose Arterial Blood Ionized Calcium Urine WBC (Auto) Urine Creatinine 06/04/21 06/04/21 06/04/21 09:48 11:08 17:33 WBC RBC Hgb Hct MCV MCH MCHC RDW [place] # (Auto) Seg Neutrophils % Seg Neuts % (Manual) Lymphocytes % (Manual) Monocytes % (Manual) Seg Neutrophils # Seg Neutrophils # Man Lymphocytes # (Manual) Monocytes # (Manual) PT APTT D-Dimer Heparin Anti-Xa Level ABG pH POC ABG pCO2 POC ABG pO2 ABG pO2 ABG Hemoglobin ABG Oxyhemoglobin ABG Sodium ABG Potassium ABG Chloride ABG Glucose Carboxyhemoglobin Sodium Potassium Chloride Carbon Dioxide BUN Creatinine Glucose POC Glucose 198 H 234 H 247 H Lactic Acid Calcium Phosphorus Magnesium Ferritin AST ALT Alkaline Phosphatase Lactate Dehydrogenase Troponin T C-Reactive Protein Total Protein Albumin HDL Cholesterol Arterial Blood Glucose Arterial Blood Ionized Calcium Urine WBC (Auto) Urine Creatinine 06/04/21 06/05/21 06/05/21 23:30 05:38 11:24 WBC RBC Hgb Hct MCV MCH MCHC RDW [place] # (Auto) Seg Neutrophils % Seg Neuts % (Manual) Lymphocytes % (Manual) Monocytes % (Manual) Seg Neutrophils # Seg Neutrophils # Man Lymphocytes # (Manual) Monocytes # (Manual) PT APTT D-Dimer Heparin Anti-Xa Level ABG pH POC ABG pCO2 POC ABG pO2 ABG pO2 ABG Hemoglobin ABG Oxyhemoglobin ABG Sodium ABG Potassium ABG Chloride ABG Glucose Carboxyhemoglobin Sodium Potassium Chloride Carbon Dioxide BUN Creatinine Glucose POC Glucose 192 H 192 H 287 H Lactic Acid Calcium Phosphorus Magnesium Ferritin AST ALT Alkaline Phosphatase Lactate Dehydrogenase Troponin T C-Reactive Protein Total Protein Albumin HDL Cholesterol Arterial Blood Glucose Arterial Blood Ionized Calcium Urine WBC (Auto) Urine Creatinine 06/05/21 06/05/21 06/05/21 12:20 12:20 12:20 WBC 16.2 H RBC 2.56 L Hgb 8.8 L Hct 25.2 L MCV 98 H MCH 35 H MCHC 35 H RDW 15.3 H Russell # (Auto) Seg Neutrophils % Seg Neuts % (Manual) Lymphocytes % (Manual) Monocytes % (Manual) Seg Neutrophils # Seg Neutrophils # Man Lymphocytes # (Manual) Monocytes # (Manual) PT APTT 72.2 H* D-Dimer Heparin Anti-Xa Level ABG pH POC ABG pCO2 POC ABG pO2 ABG pO2 ABG Hemoglobin ABG Oxyhemoglobin ABG Sodium ABG Potassium ABG Chloride ABG Glucose Carboxyhemoglobin Sodium 133 L Potassium Chloride 95.3 L Carbon Dioxide BUN 57 H Creatinine Glucose 313 H POC Glucose Lactic Acid Calcium Phosphorus Magnesium Ferritin AST 90 H ALT 79 H Alkaline Phosphatase 262 H Lactate Dehydrogenase Troponin T C-Reactive Protein Total Protein Albumin 2.7 L HDL Cholesterol Arterial Blood Glucose Arterial Blood Ionized Calcium Urine WBC (Auto) Urine Creatinine 06/05/21 06/05/21 06/05/21 17:50 22:57 23:36 WBC RBC Hgb Hct MCV MCH MCHC RDW [place] # (Auto) Seg Neutrophils % Seg Neuts % (Manual) Lymphocytes % (Manual) Monocytes % (Manual) Seg Neutrophils # Seg Neutrophils # Man Lymphocytes # (Manual) Monocytes # (Manual) PT APTT D-Dimer Heparin Anti-Xa Level 0.28 L ABG pH POC ABG pCO2 POC ABG pO2 ABG pO2 ABG Hemoglobin ABG Oxyhemoglobin ABG Sodium ABG Potassium ABG Chloride ABG Glucose Carboxyhemoglobin Sodium Potassium Chloride Carbon Dioxide BUN Creatinine Glucose POC Glucose 275 H 223 H Lactic Acid Calcium Phosphorus Magnesium Ferritin AST ALT Alkaline Phosphatase Lactate Dehydrogenase Troponin T C-Reactive Protein Total Protein Albumin HDL Cholesterol Arterial Blood Glucose Arterial Blood Ionized Calcium Urine WBC (Auto) Urine Creatinine 06/06/21 06/06/21 06/06/21 04:57 04:57 05:02 WBC 15.7 H RBC 2.77 L Hgb 9.4 L Hct 27.2 L MCV 98 H MCH 34 H MCHC RDW 15.4 H Russell # (Auto) Seg Neutrophils % Seg Neuts % (Manual) Lymphocytes % (Manual) Monocytes % (Manual) Seg Neutrophils # Seg Neutrophils # Man Lymphocytes # (Manual) Monocytes # (Manual) PT APTT D-Dimer Heparin Anti-Xa Level ABG pH POC ABG pCO2 POC ABG pO2 ABG pO2 ABG Hemoglobin ABG Oxyhemoglobin ABG Sodium ABG Potassium ABG Chloride ABG Glucose Carboxyhemoglobin Sodium Potassium 5.7 H Chloride Carbon Dioxide BUN 57 H Creatinine Glucose 245 H POC Glucose 217 H Lactic Acid Calcium Phosphorus Magnesium Ferritin AST 99 H ALT 136 H Alkaline Phosphatase 312 H Lactate Dehydrogenase Troponin T C-Reactive Protein Total Protein 6.1 L Albumin 3.1 L HDL Cholesterol Arterial Blood Glucose Arterial Blood Ionized Calcium Urine WBC (Auto) Urine Creatinine 06/06/21 06/06/21 06/06/21 11:37 17:34 18:09 WBC RBC Hgb Hct MCV MCH MCHC RDW [place] # (Auto) Seg Neutrophils % Seg Neuts % (Manual) Lymphocytes % (Manual) Monocytes % (Manual) Seg Neutrophils # Seg Neutrophils # Man Lymphocytes # (Manual) Monocytes # (Manual) PT APTT D-Dimer Heparin Anti-Xa Level ABG pH POC ABG pCO2 POC ABG pO2 ABG pO2 ABG Hemoglobin ABG Oxyhemoglobin ABG Sodium ABG Potassium ABG Chloride ABG Glucose Carboxyhemoglobin Sodium Potassium 5.2 H Chloride Carbon Dioxide BUN 48 H Creatinine Glucose 245 H POC Glucose 251 H 217 H Lactic Acid Calcium Phosphorus Magnesium Ferritin AST ALT Alkaline Phosphatase Lactate Dehydrogenase Troponin T C-Reactive Protein Total Protein Albumin HDL Cholesterol Arterial Blood Glucose Arterial Blood Ionized Calcium Urine WBC (Auto) Urine Creatinine 06/06/21 06/07/21 06/07/21 23:53 04:45 04:45 WBC 21.5 H RBC 2.71 L Hgb 9.0 L Hct 26.9 L MCV 99 H MCH 33 H MCHC RDW 15.3 H Russell # (Auto) Seg Neutrophils % Seg Neuts % (Manual) Lymphocytes % (Manual) Monocytes % (Manual) Seg Neutrophils # Seg Neutrophils # Man Lymphocytes # (Manual) Monocytes # (Manual) PT APTT D-Dimer Heparin Anti-Xa Level 0.10 L ABG pH POC ABG pCO2 POC ABG pO2 ABG pO2 ABG Hemoglobin ABG Oxyhemoglobin ABG Sodium ABG Potassium ABG Chloride ABG Glucose Carboxyhemoglobin Sodium Potassium Chloride Carbon Dioxide BUN Creatinine Glucose POC Glucose 224 H Lactic Acid Calcium Phosphorus Magnesium Ferritin AST ALT Alkaline Phosphatase Lactate Dehydrogenase Troponin T C-Reactive Protein Total Protein Albumin HDL Cholesterol Arterial Blood Glucose Arterial Blood Ionized Calcium Urine WBC (Auto) Urine Creatinine 06/07/21 06/07/21 06/07/21 04:45 05:11 11:50 WBC RBC Hgb Hct MCV MCH MCHC RDW [place] # (Auto) Seg Neutrophils % Seg Neuts % (Manual) Lymphocytes % (Manual) Monocytes % (Manual) Seg Neutrophils # Seg Neutrophils # Man Lymphocytes # (Manual) Monocytes # (Manual) PT APTT D-Dimer Heparin Anti-Xa Level ABG pH POC ABG pCO2 POC ABG pO2 ABG pO2 ABG Hemoglobin ABG Oxyhemoglobin ABG Sodium ABG Potassium ABG Chloride ABG Glucose Carboxyhemoglobin Sodium Potassium 5.4 H Chloride Carbon Dioxide BUN 55 H Creatinine Glucose 178 H POC Glucose 156 H 118 H Lactic Acid Calcium Phosphorus Magnesium Ferritin AST ALT Alkaline Phosphatase Lactate Dehydrogenase Troponin T C-Reactive Protein Total Protein Albumin HDL Cholesterol Arterial Blood Glucose Arterial Blood Ionized Calcium Urine WBC (Auto) Urine Creatinine 06/07/21 06/07/21 06/07/21 14:52 17:45 20:43 WBC RBC Hgb Hct MCV MCH MCHC RDW [place] # (Auto) Seg Neutrophils % Seg Neuts % (Manual) Lymphocytes % (Manual) Monocytes % (Manual) Seg Neutrophils # Seg Neutrophils # Man Lymphocytes # (Manual) Monocytes # (Manual) PT APTT D-Dimer Heparin Anti-Xa Level 0.73 H ABG pH POC ABG pCO2 POC ABG pO2 ABG pO2 ABG Hemoglobin ABG Oxyhemoglobin ABG Sodium ABG Potassium ABG Chloride ABG Glucose Carboxyhemoglobin Sodium Potassium Chloride Carbon Dioxide BUN Creatinine Glucose POC Glucose 164 H Lactic Acid Calcium Phosphorus Magnesium Ferritin AST ALT Alkaline Phosphatase Lactate Dehydrogenase Troponin T C-Reactive Protein 28.90 H Total Protein Albumin HDL Cholesterol Arterial Blood Glucose Arterial Blood Ionized Calcium Urine WBC (Auto) Urine Creatinine 06/07/21 06/08/21 06/08/21 23:15 04:25 04:25 WBC 15.8 H RBC 2.58 L Hgb 8.6 L Hct 25.7 L MCV 100 H MCH 33 H MCHC RDW [place] # (Auto) Seg Neutrophils % Seg Neuts % (Manual) 76.0 H Lymphocytes % (Manual) 6.0 L Monocytes % (Manual) 8.0 H Seg Neutrophils # Seg Neutrophils # Man 12.0 H Lymphocytes # (Manual) 0.9 L Monocytes # (Manual) 1.3 H PT APTT D-Dimer Heparin Anti-Xa Level ABG pH POC ABG pCO2 POC ABG pO2 ABG pO2 ABG Hemoglobin ABG Oxyhemoglobin ABG Sodium ABG Potassium ABG Chloride ABG Glucose Carboxyhemoglobin Sodium Potassium Chloride Carbon Dioxide BUN 65 H Creatinine Glucose 205 H POC Glucose 236 H Lactic Acid Calcium Phosphorus Magnesium Ferritin AST ALT Alkaline Phosphatase Lactate Dehydrogenase Troponin T C-Reactive Protein Total Protein Albumin HDL Cholesterol Arterial Blood Glucose Arterial Blood Ionized Calcium Urine WBC (Auto) Urine Creatinine 06/08/21 06/08/21 06/08/21 05:36 11:18 17:41 WBC RBC Hgb Hct MCV MCH MCHC RDW [place] # (Auto) Seg Neutrophils % Seg Neuts % (Manual) Lymphocytes % (Manual) Monocytes % (Manual) Seg Neutrophils # Seg Neutrophils # Man Lymphocytes # (Manual) Monocytes # (Manual) PT APTT D-Dimer Heparin Anti-Xa Level ABG pH POC ABG pCO2 POC ABG pO2 ABG pO2 ABG Hemoglobin ABG Oxyhemoglobin ABG Sodium ABG Potassium ABG Chloride ABG Glucose Carboxyhemoglobin Sodium Potassium Chloride Carbon Dioxide BUN Creatinine Glucose POC Glucose 185 H 203 H 173 H Lactic Acid Calcium Phosphorus Magnesium Ferritin AST ALT Alkaline Phosphatase Lactate Dehydrogenase Troponin T C-Reactive Protein Total Protein Albumin HDL Cholesterol Arterial Blood Glucose Arterial Blood Ionized Calcium Urine WBC (Auto) Urine Creatinine 06/08/21 06/09/21 06/09/21 23:34 05:16 05:20 WBC 15.0 H RBC 2.54 L Hgb 8.5 L Hct 25.2 L MCV 99 H MCH 33 H MCHC RDW [place] # (Auto) Seg Neutrophils % Seg Neuts % (Manual) Lymphocytes % (Manual) Monocytes % (Manual) Seg Neutrophils # Seg Neutrophils # Man Lymphocytes # (Manual) Monocytes # (Manual) PT APTT D-Dimer Heparin Anti-Xa Level ABG pH POC ABG pCO2 POC ABG pO2 ABG pO2 ABG Hemoglobin ABG Oxyhemoglobin ABG Sodium ABG Potassium ABG Chloride ABG Glucose Carboxyhemoglobin Sodium Potassium Chloride Carbon Dioxide BUN Creatinine Glucose POC Glucose 200 H 154 H Lactic Acid Calcium Phosphorus Magnesium Ferritin AST ALT Alkaline Phosphatase Lactate Dehydrogenase Troponin T C-Reactive Protein Total Protein Albumin HDL Cholesterol Arterial Blood Glucose Arterial Blood Ionized Calcium Urine WBC (Auto) Urine Creatinine 06/09/21 06/09/21 06/09/21 05:20 11:40 17:09 WBC RBC Hgb Hct MCV MCH MCHC RDW [place] # (Auto) Seg Neutrophils % Seg Neuts % (Manual) Lymphocytes % (Manual) Monocytes % (Manual) Seg Neutrophils # Seg Neutrophils # Man Lymphocytes # (Manual) Monocytes # (Manual) PT APTT D-Dimer Heparin Anti-Xa Level ABG pH POC ABG pCO2 POC ABG pO2 ABG pO2 ABG Hemoglobin ABG Oxyhemoglobin ABG Sodium ABG Potassium ABG Chloride ABG Glucose Carboxyhemoglobin Sodium Potassium 5.2 H Chloride Carbon Dioxide BUN 69 H Creatinine Glucose 163 H POC Glucose 232 H 137 H Lactic Acid Calcium Phosphorus Magnesium Ferritin AST ALT Alkaline Phosphatase Lactate Dehydrogenase Troponin T C-Reactive Protein Total Protein Albumin HDL Cholesterol Arterial Blood Glucose Arterial Blood Ionized Calcium Urine WBC (Auto) Urine Creatinine 06/09/21 06/10/21 06/10/21 23:31 04:42 04:42 WBC 14.5 H RBC 2.41 L Hgb 8.2 L Hct 24.0 L MCV 100 H MCH 34 H MCHC RDW 15.8 H Russell # (Auto) Seg Neutrophils % Seg Neuts % (Manual) Lymphocytes % (Manual) Monocytes % (Manual) Seg Neutrophils # Seg Neutrophils # Man Lymphocytes # (Manual) Monocytes # (Manual) PT APTT D-Dimer Heparin Anti-Xa Level ABG pH POC ABG pCO2 POC ABG pO2 ABG pO2 ABG Hemoglobin ABG Oxyhemoglobin ABG Sodium ABG Potassium ABG Chloride ABG Glucose Carboxyhemoglobin Sodium 146 H D Potassium 3.4 L D Chloride Carbon Dioxide BUN 62 H Creatinine Glucose 174 H POC Glucose 162 H Lactic Acid Calcium Phosphorus Magnesium Ferritin AST ALT Alkaline Phosphatase Lactate Dehydrogenase Troponin T C-Reactive Protein Total Protein Albumin HDL Cholesterol Arterial Blood Glucose Arterial Blood Ionized Calcium Urine WBC (Auto) Urine Creatinine 06/10/21 06/10/21 06/10/21 05:36 11:43 18:24 WBC RBC Hgb Hct MCV MCH MCHC RDW [place] # (Auto) Seg Neutrophils % Seg Neuts % (Manual) Lymphocytes % (Manual) Monocytes % (Manual) Seg Neutrophils # Seg Neutrophils # Man Lymphocytes # (Manual) Monocytes # (Manual) PT APTT D-Dimer Heparin Anti-Xa Level ABG pH POC ABG pCO2 POC ABG pO2 ABG pO2 ABG Hemoglobin ABG Oxyhemoglobin ABG Sodium ABG Potassium ABG Chloride ABG Glucose Carboxyhemoglobin Sodium Potassium Chloride Carbon Dioxide BUN Creatinine Glucose POC Glucose 149 H 183 H 139 H Lactic Acid Calcium Phosphorus Magnesium Ferritin AST ALT Alkaline Phosphatase Lactate Dehydrogenase Troponin T C-Reactive Protein Total Protein Albumin HDL Cholesterol Arterial Blood Glucose Arterial Blood Ionized Calcium Urine WBC (Auto) Urine Creatinine 06/10/21 06/11/21 06/11/21 23:32 04:17 05:22 WBC RBC Hgb Hct MCV MCH MCHC RDW [place] # (Auto) Seg Neutrophils % Seg Neuts % (Manual) Lymphocytes % (Manual) Monocytes % (Manual) Seg Neutrophils # Seg Neutrophils # Man Lymphocytes # (Manual) Monocytes # (Manual) PT APTT D-Dimer Heparin Anti-Xa Level 0.84 H ABG pH POC ABG pCO2 POC ABG pO2 ABG pO2 ABG Hemoglobin ABG Oxyhemoglobin ABG Sodium ABG Potassium ABG Chloride ABG Glucose Carboxyhemoglobin Sodium Potassium Chloride Carbon Dioxide BUN Creatinine Glucose POC Glucose 149 H 138 H Lactic Acid Calcium Phosphorus Magnesium Ferritin AST ALT Alkaline Phosphatase Lactate Dehydrogenase Troponin T C-Reactive Protein Total Protein Albumin HDL Cholesterol Arterial Blood Glucose Arterial Blood Ionized Calcium Urine WBC (Auto) Urine Creatinine 06/11/21 06/11/21 06/12/21 11:26 23:56 04:44 WBC 15.5 H RBC 2.59 L Hgb 8.6 L Hct 25.8 L MCV 100 H MCH 33 H MCHC RDW 15.3 H Russell # (Auto) Seg Neutrophils % Seg Neuts % (Manual) Lymphocytes % (Manual) Monocytes % (Manual) Seg Neutrophils # Seg Neutrophils # Man Lymphocytes # (Manual) Monocytes # (Manual) PT APTT D-Dimer Heparin Anti-Xa Level ABG pH POC ABG pCO2 POC ABG pO2 ABG pO2 ABG Hemoglobin ABG Oxyhemoglobin ABG Sodium ABG Potassium ABG Chloride ABG Glucose Carboxyhemoglobin Sodium Potassium Chloride Carbon Dioxide BUN Creatinine Glucose POC Glucose 198 H 199 H Lactic Acid Calcium Phosphorus Magnesium Ferritin AST ALT Alkaline Phosphatase Lactate Dehydrogenase Troponin T C-Reactive Protein Total Protein Albumin HDL Cholesterol Arterial Blood Glucose Arterial Blood Ionized Calcium Urine WBC (Auto) Urine Creatinine 06/12/21 06/12/21 06/12/21 04:44 04:44 05:29 WBC RBC Hgb Hct MCV MCH MCHC RDW [place] # (Auto) Seg Neutrophils % Seg Neuts % (Manual) Lymphocytes % (Manual) Monocytes % (Manual) Seg Neutrophils # Seg Neutrophils # Man Lymphocytes # (Manual) Monocytes # (Manual) PT APTT D-Dimer Heparin Anti-Xa Level ABG pH POC ABG pCO2 POC ABG pO2 ABG pO2 ABG Hemoglobin ABG Oxyhemoglobin ABG Sodium ABG Potassium ABG Chloride ABG Glucose Carboxyhemoglobin Sodium 148 H Potassium Chloride Carbon Dioxide BUN 49 H 51 H Creatinine Glucose 222 H 223 H POC Glucose 193 H Lactic Acid Calcium Phosphorus Magnesium 3.20 H Ferritin AST 81 H ALT 83 H Alkaline Phosphatase 215 H Lactate Dehydrogenase Troponin T C-Reactive Protein Total Protein Albumin 3.2 L HDL Cholesterol Arterial Blood Glucose Arterial Blood Ionized Calcium Urine WBC (Auto) Urine Creatinine 06/12/21 06/12/21 06/12/21 11:21 17:55 23:23 WBC RBC Hgb Hct MCV MCH MCHC RDW [place] # (Auto) Seg Neutrophils % Seg Neuts % (Manual) Lymphocytes % (Manual) Monocytes % (Manual) Seg Neutrophils # Seg Neutrophils # Man Lymphocytes # (Manual) Monocytes # (Manual) PT APTT D-Dimer Heparin Anti-Xa Level ABG pH POC ABG pCO2 POC ABG pO2 ABG pO2 ABG Hemoglobin ABG Oxyhemoglobin ABG Sodium ABG Potassium ABG Chloride ABG Glucose Carboxyhemoglobin Sodium Potassium Chloride Carbon Dioxide BUN Creatinine Glucose POC Glucose 185 H 210 H 211 H Lactic Acid Calcium Phosphorus Magnesium Ferritin AST ALT Alkaline Phosphatase Lactate Dehydrogenase Troponin T C-Reactive Protein Total Protein Albumin HDL Cholesterol Arterial Blood Glucose Arterial Blood Ionized Calcium Urine WBC (Auto) Urine Creatinine 06/13/21 06/13/21 06/13/21 04:34 04:34 05:17 WBC 17.2 H RBC 2.56 L Hgb 8.6 L Hct 26.1 L MCV 102 H MCH 34 H MCHC RDW [place] # (Auto) Seg Neutrophils % Seg Neuts % (Manual) Lymphocytes % (Manual) Monocytes % (Manual) Seg Neutrophils # Seg Neutrophils # Man Lymphocytes # (Manual) Monocytes # (Manual) PT APTT D-Dimer Heparin Anti-Xa Level ABG pH POC ABG pCO2 POC ABG pO2 ABG pO2 ABG Hemoglobin ABG Oxyhemoglobin ABG Sodium ABG Potassium ABG Chloride ABG Glucose Carboxyhemoglobin Sodium 149 H Potassium 5.1 H Chloride Carbon Dioxide BUN 52 H Creatinine 1.6 H Glucose 231 H POC Glucose 207 H Lactic Acid Calcium Phosphorus Magnesium Ferritin AST 69 H ALT 74 H Alkaline Phosphatase 197 H Lactate Dehydrogenase Troponin T C-Reactive Protein Total Protein Albumin 3.0 L HDL Cholesterol Arterial Blood Glucose Arterial Blood Ionized Calcium Urine WBC (Auto) Urine Creatinine 06/13/21 06/13/21 06/13/21 10:44 11:07 12:07 WBC RBC Hgb Hct MCV MCH MCHC RDW [place] # (Auto) Seg Neutrophils % Seg Neuts % (Manual) Lymphocytes % (Manual) Monocytes % (Manual) Seg Neutrophils # Seg Neutrophils # Man Lymphocytes # (Manual) Monocytes # (Manual) PT APTT D-Dimer Heparin Anti-Xa Level < 0.10 L ABG pH 7.455 H POC ABG pCO2 POC ABG pO2 ABG pO2 ABG Hemoglobin 8.6 L ABG Oxyhemoglobin ABG Sodium ABG Potassium 4.7 H ABG Chloride ABG Glucose 277 H Carboxyhemoglobin Sodium Potassium Chloride Carbon Dioxide BUN Creatinine Glucose POC Glucose 241 H Lactic Acid Calcium Phosphorus Magnesium Ferritin AST ALT Alkaline Phosphatase Lactate Dehydrogenase Troponin T C-Reactive Protein Total Protein Albumin HDL Cholesterol Arterial Blood Glucose 277 H Arterial Blood Ionized Calcium Urine WBC (Auto) Urine Creatinine 06/13/21 06/13/21 06/13/21 17:35 21:13 23:19 WBC RBC Hgb Hct MCV MCH MCHC RDW [place] # (Auto) Seg Neutrophils % Seg Neuts % (Manual) Lymphocytes % (Manual) Monocytes % (Manual) Seg Neutrophils # Seg Neutrophils # Man Lymphocytes # (Manual) Monocytes # (Manual) PT APTT D-Dimer Heparin Anti-Xa Level 0.92 H ABG pH POC ABG pCO2 POC ABG pO2 ABG pO2 ABG Hemoglobin ABG Oxyhemoglobin ABG Sodium ABG Potassium ABG Chloride ABG Glucose Carboxyhemoglobin Sodium Potassium Chloride Carbon Dioxide BUN Creatinine Glucose POC Glucose 233 H 232 H Lactic Acid Calcium Phosphorus Magnesium Ferritin AST ALT Alkaline Phosphatase Lactate Dehydrogenase Troponin T C-Reactive Protein Total Protein Albumin HDL Cholesterol Arterial Blood Glucose Arterial Blood Ionized Calcium Urine WBC (Auto) Urine Creatinine 06/14/21 06/14/21 06/14/21 04:21 04:21 05:36 WBC 15.6 H RBC 2.26 L Hgb 7.6 L Hct 22.9 L MCV 101 H MCH 34 H MCHC RDW 15.3 H Russell # (Auto) Seg Neutrophils % Seg Neuts % (Manual) Lymphocytes % (Manual) Monocytes % (Manual) Seg Neutrophils # Seg Neutrophils # Man Lymphocytes # (Manual) Monocytes # (Manual) PT APTT D-Dimer Heparin Anti-Xa Level ABG pH POC ABG pCO2 POC ABG pO2 ABG pO2 ABG Hemoglobin ABG Oxyhemoglobin ABG Sodium ABG Potassium ABG Chloride ABG Glucose Carboxyhemoglobin Sodium 149 H Potassium Chloride 107.8 H Carbon Dioxide BUN 66 H Creatinine 1.8 H Glucose 192 H POC Glucose 166 H Lactic Acid Calcium Phosphorus Magnesium Ferritin AST ALT Alkaline Phosphatase Lactate Dehydrogenase Troponin T C-Reactive Protein Total Protein Albumin HDL Cholesterol Arterial Blood Glucose Arterial Blood Ionized Calcium Urine WBC (Auto) Urine Creatinine 06/14/21 06/14/21 06/14/21 12:21 17:07 23:14 WBC RBC Hgb Hct MCV MCH MCHC RDW [place] # (Auto) Seg Neutrophils % Seg Neuts % (Manual) Lymphocytes % (Manual) Monocytes % (Manual) Seg Neutrophils # Seg Neutrophils # Man Lymphocytes # (Manual) Monocytes # (Manual) PT APTT D-Dimer Heparin Anti-Xa Level ABG pH POC ABG pCO2 POC ABG pO2 ABG pO2 ABG Hemoglobin ABG Oxyhemoglobin ABG Sodium ABG Potassium ABG Chloride ABG Glucose Carboxyhemoglobin Sodium Potassium Chloride Carbon Dioxide BUN Creatinine Glucose POC Glucose 190 H 172 H 195 H Lactic Acid Calcium Phosphorus Magnesium Ferritin AST ALT Alkaline Phosphatase Lactate Dehydrogenase Troponin T C-Reactive Protein Total Protein Albumin HDL Cholesterol Arterial Blood Glucose Arterial Blood Ionized Calcium Urine WBC (Auto) Urine Creatinine 06/15/21 06/15/21 06/15/21 05:08 05:08 05:47 WBC 15.3 H RBC 2.23 L Hgb 7.3 L Hct 22.5 L MCV 101 H MCH 33 H MCHC RDW [place] # (Auto) Seg Neutrophils % Seg Neuts % (Manual) Lymphocytes % (Manual) Monocytes % (Manual) Seg Neutrophils # Seg Neutrophils # Man Lymphocytes # (Manual) Monocytes # (Manual) PT APTT D-Dimer Heparin Anti-Xa Level ABG pH POC ABG pCO2 POC ABG pO2 ABG pO2 ABG Hemoglobin ABG Oxyhemoglobin ABG Sodium ABG Potassium ABG Chloride ABG Glucose Carboxyhemoglobin Sodium 147 H Potassium Chloride Carbon Dioxide BUN 60 H Creatinine 1.6 H Glucose 158 H POC Glucose 150 H Lactic Acid Calcium 8.2 L Phosphorus 5.90 H Magnesium 3.20 H Ferritin AST ALT Alkaline Phosphatase Lactate Dehydrogenase Troponin T C-Reactive Protein Total Protein Albumin HDL Cholesterol Arterial Blood Glucose Arterial Blood Ionized Calcium Urine WBC (Auto) Urine Creatinine 06/15/21 06/15/21 06/15/21 10:19 11:25 17:47 WBC RBC Hgb Hct MCV MCH MCHC RDW [place] # (Auto) Seg Neutrophils % Seg Neuts % (Manual) Lymphocytes % (Manual) Monocytes % (Manual) Seg Neutrophils # Seg Neutrophils # Man Lymphocytes # (Manual) Monocytes # (Manual) PT APTT D-Dimer Heparin Anti-Xa Level ABG pH 7.471 H POC ABG pCO2 POC ABG pO2 ABG pO2 ABG Hemoglobin ABG Oxyhemoglobin ABG Sodium ABG Potassium ABG Chloride ABG Glucose Carboxyhemoglobin Sodium Potassium Chloride Carbon Dioxide BUN Creatinine Glucose POC Glucose 133 H 201 H Lactic Acid Calcium Phosphorus Magnesium Ferritin AST ALT Alkaline Phosphatase Lactate Dehydrogenase Troponin T C-Reactive Protein Total Protein Albumin HDL Cholesterol Arterial Blood Glucose Arterial Blood Ionized Calcium Urine WBC (Auto) Urine Creatinine 06/15/21 06/15/21 06/16/21 23:43 Unknown 04:31 WBC 13.8 H RBC 2.23 L Hgb 7.5 L Hct 22.4 L MCV 101 H MCH 34 H MCHC RDW Russell # (Auto) Seg Neutrophils % Seg Neuts % (Manual) Lymphocytes % (Manual) Monocytes % (Manual) Seg Neutrophils # Seg Neutrophils # Man Lymphocytes # (Manual) Monocytes # (Manual) PT APTT D-Dimer Heparin Anti-Xa Level ABG pH POC ABG pCO2 POC ABG pO2 ABG pO2 ABG Hemoglobin ABG Oxyhemoglobin ABG Sodium ABG Potassium ABG Chloride ABG Glucose Carboxyhemoglobin Sodium Potassium Chloride Carbon Dioxide BUN Creatinine Glucose POC Glucose 148 H Lactic Acid Calcium Phosphorus Magnesium Ferritin AST ALT Alkaline Phosphatase Lactate Dehydrogenase Troponin T C-Reactive Protein Total Protein Albumin HDL Cholesterol Arterial Blood Glucose Arterial Blood Ionized Calcium Urine WBC (Auto) Urine Creatinine 74.7 H 06/16/21 06/16/21 06/16/21 04:31 05:48 11:47 WBC RBC Hgb Hct MCV MCH MCHC RDW Russell # (Auto) Seg Neutrophils % Seg Neuts % (Manual) Lymphocytes % (Manual) Monocytes % (Manual) Seg Neutrophils # Seg Neutrophils # Man Lymphocytes # (Manual) Monocytes # (Manual) PT APTT D-Dimer Heparin Anti-Xa Level ABG pH POC ABG pCO2 POC ABG pO2 ABG pO2 ABG Hemoglobin ABG Oxyhemoglobin ABG Sodium ABG Potassium ABG Chloride ABG Glucose Carboxyhemoglobin Sodium Potassium Chloride Carbon Dioxide BUN 49 H Creatinine 1.3 H Glucose 194 H POC Glucose 184 H 190 H Lactic Acid Calcium Phosphorus 5.40 H Magnesium 2.90 H Ferritin AST ALT Alkaline Phosphatase Lactate Dehydrogenase Troponin T C-Reactive Protein Total Protein Albumin HDL Cholesterol Arterial Blood Glucose Arterial Blood Ionized Calcium Urine WBC (Auto) Urine Creatinine 06/16/21 06/16/21 06/16/21 18:51 18:51 23:13 WBC 12.4 H RBC 2.22 L Hgb 7.3 L Hct 22.4 L MCV 101 H MCH 33 H MCHC RDW Russell # (Auto) Seg Neutrophils % Seg Neuts % (Manual) Lymphocytes % (Manual) Monocytes % (Manual) Seg Neutrophils # Seg Neutrophils # Man Lymphocytes # (Manual) Monocytes # (Manual) PT APTT 64.1 H* D-Dimer Heparin Anti-Xa Level ABG pH POC ABG pCO2 POC ABG pO2 ABG pO2 ABG Hemoglobin ABG Oxyhemoglobin ABG Sodium ABG Potassium ABG Chloride ABG Glucose Carboxyhemoglobin Sodium Potassium Chloride Carbon Dioxide BUN Creatinine Glucose POC Glucose 160 H Lactic Acid Calcium Phosphorus Magnesium Ferritin AST ALT Alkaline Phosphatase Lactate Dehydrogenase Troponin T C-Reactive Protein Total Protein Albumin HDL Cholesterol Arterial Blood Glucose Arterial Blood Ionized Calcium Urine WBC (Auto) Urine Creatinine 06/17/21 06/17/21 06/17/21 04:19 05:02 11:56 WBC RBC Hgb Hct MCV MCH MCHC RDW Russell # (Auto) Seg Neutrophils % Seg Neuts % (Manual) Lymphocytes % (Manual) Monocytes % (Manual) Seg Neutrophils # Seg Neutrophils # Man Lymphocytes # (Manual) Monocytes # (Manual) PT APTT D-Dimer Heparin Anti-Xa Level 1.53 H ABG pH POC ABG pCO2 POC ABG pO2 ABG pO2 ABG Hemoglobin ABG Oxyhemoglobin ABG Sodium ABG Potassium ABG Chloride ABG Glucose Carboxyhemoglobin Sodium Potassium Chloride Carbon Dioxide BUN Creatinine Glucose POC Glucose 167 H 166 H Lactic Acid Calcium Phosphorus Magnesium Ferritin AST ALT Alkaline Phosphatase Lactate Dehydrogenase Troponin T C-Reactive Protein Total Protein Albumin HDL Cholesterol Arterial Blood Glucose Arterial Blood Ionized Calcium Urine WBC (Auto) Urine Creatinine 06/17/21 06/17/21 06/17/21 17:48 22:42 23:08 WBC RBC Hgb Hct MCV MCH MCHC RDW Russell # (Auto) Seg Neutrophils % Seg Neuts % (Manual) Lymphocytes % (Manual) Monocytes % (Manual) Seg Neutrophils # Seg Neutrophils # Man Lymphocytes # (Manual) Monocytes # (Manual) PT APTT D-Dimer Heparin Anti-Xa Level ABG pH POC ABG pCO2 POC ABG pO2 ABG pO2 ABG Hemoglobin ABG Oxyhemoglobin ABG Sodium ABG Potassium ABG Chloride ABG Glucose Carboxyhemoglobin Sodium Potassium Chloride Carbon Dioxide BUN Creatinine Glucose POC Glucose 159 H 122 H 114 H Lactic Acid Calcium Phosphorus Magnesium Ferritin AST ALT Alkaline Phosphatase Lactate Dehydrogenase Troponin T C-Reactive Protein Total Protein Albumin HDL Cholesterol Arterial Blood Glucose Arterial Blood Ionized Calcium Urine WBC (Auto) Urine Creatinine 06/18/21 06/18/21 06/18/21 05:40 06:20 13:11 WBC RBC 2.19 L Hgb 7.3 L Hct 21.9 L MCV 100 H MCH 33 H MCHC RDW Russell # (Auto) Seg Neutrophils % Seg Neuts % (Manual) Lymphocytes % (Manual) Monocytes % (Manual) Seg Neutrophils # Seg Neutrophils # Man Lymphocytes # (Manual) Monocytes # (Manual) PT APTT D-Dimer Heparin Anti-Xa Level ABG pH POC ABG pCO2 POC ABG pO2 ABG pO2 ABG Hemoglobin ABG Oxyhemoglobin ABG Sodium ABG Potassium ABG Chloride ABG Glucose Carboxyhemoglobin Sodium Potassium Chloride Carbon Dioxide BUN Creatinine Glucose POC Glucose 174 H 149 H Lactic Acid Calcium Phosphorus Magnesium Ferritin AST ALT Alkaline Phosphatase Lactate Dehydrogenase Troponin T C-Reactive Protein Total Protein Albumin HDL Cholesterol Arterial Blood Glucose Arterial Blood Ionized Calcium Urine WBC (Auto) Urine Creatinine Chest x-ray: pending Allied health notes reviewed: nursing
[2021-06-18] MEDS: INSULIN GLARGINE 100 UNITS/ML SUB-Q SCH (21:55)
[2021-06-19] MEDS: DOCUSATE SODIUM 100 MG/10 ML ORAL LIQD PO SCH ×3 (02:02→21:50)
[2021-06-19] MEDS: CEFEPIME/NS 2 GM/100 ML 2 GM/100 ML BAG IV SCH ×6 (04:32→17:11)
[2021-06-19] MEDS: INSULIN LISPRO 100 UNIT/ML SUB-Q SCH ×3 (06:38→17:29)
[2021-06-19] MEDS: hydrALAZINE 25 MG TAB PO SCH ×3 (06:48→21:52)
[2021-06-19 06:52] LABS: Basophils % (Auto) 0.5 % (0.0-1.8); Eosinophils # (Auto) 0.2 K/mm3 (0.0-0.4); Eosinophils % (Auto) 2.8 % (0.0-4.3); Hematocrit 22.2 % (30.3-42.9); Hemoglobin 7.4 gm/dl (10.1-14.3); Lymphocytes # (Auto) 1.5 K/mm3 (1.2-5.4); Lymphocytes % (Auto) 17.6 % (13.4-35.0); Mean Corpuscular HGB Conc 33 % (30-34); Mean Corpuscular Volume 102 fl (79-97); Monocytes % (Auto) 11.3 % (0.0-7.3); Platelet Count 269 K/mm3 (140-440); Red Blood Count 2.19 M/mm3 (3.65-5.03); Red Cell Distribution Width 14.8 % (13.2-15.2)
[2021-06-19 07:07] LABS: BUN/Creatinine Ratio 26; Blood Urea Nitrogen 26 mg/dL (7-17); Calcium 8.6 mg/dL (8.4-10.2); Hemolysis Index 13
[2021-06-19] MEDS: levETIRAcetam 500 MG/5 ML ORAL LIQD FEEDTUBE SCH ×2 (09:42→21:49)
[2021-06-19] MEDS: FAMOTIDINE 20 MG TAB FEEDTUBE SCH ×2 (09:42→21:51)
[2021-06-19] MEDS: VALSARTAN 160MG TAB PO SCH ×2 (09:43→21:51)
[2021-06-19] MEDS: DOXAZOSIN 1 MG TAB PO SCH ×2 (09:43→21:50)
[2021-06-19] MEDS: APIXABAN 5 MG TAB PO SCH ×2 (09:43→21:50)
[2021-06-19] MEDS: FREE WATER PO SCH ×3 (09:47→21:53)
[2021-06-19] MEDS: SENNOSIDES/DOCUSATE SODIUM 8.6/50 MG TAB FEEDTUBE SCH ×2 (10:00→21:48)
[2021-06-19] MEDS: POLYETHYLENE GLYCOL 3350 17 GM POWDER PO SCH (10:00)
--- NOTE | 2021-06-19 14:53 | Progress Note ---
Assessment and Plan Acute hypoxemic respiratory failure on MVS Cardiopulmonary arrest wtih ROSC Seizure disorder Sepsis Toxic metabolic encephalopathy, possible anoxia Atrial fibrillation with RVR Metabolic acidosis Bilateral lower lobe infiltrates - repeat CXR in am; ? aspiration PNA post recent emesis - begin Mucomyst nebs - continue empiric Cefepime and follow sensitivities - continue t-piece trials as tolerated (shooting for 16 hours today) - continue anticoagulation with Eliquis - continue care as below otherwise; - LTAC evaluation is appropriate - continue scopolamine patch for secretions - azotemia per nephrology team (non-oliguric) - daily SAT and SBT assessment as tolerated - continue to wean supplemental oxygen for target O2 sat's > 90% acutely - VAP bundle addressed - continue lung protective strategies - continue bronchodilators with pulmonary hygiene per RT - wean per pulmonary driven protocols otherwise - continue accuchecks with glycemic control per SSI (While critically ill target blood glucose of 140-180 mg/dL; avoid hypoglycemia) - sedation prn for target RASS 0 to -1 - avoid nephrotoxins, renally dose all medications - continue scopolamine for secretion control - continue Keppra as AED - continue to avoid benzodiazepine's, reduce the possibility of delirium - AB's per ID rec's - prn analgesia per CPOT score - Maintenance of sleep-wake cycle, avoid delirium - continue enteral nutritional support at goal rate as tolerated - G.I. & VTE prophylaxis - PT/OT/ROM exercises - continue mobility protocols for pressure ulcer prophylaxis - Monitor hemodynamics closely - continue other care per attending / other consultants - discharge planning ongoing concurrently COVID SPECIFIC INTERVENTIONS - COVID-19 PCR negative .... Re-evaluate in am & prn CONDITION: CRITICAL PROGNOSIS: GUARDED CODE STATUS: FULL CODE The high probability of a clinically significant, sudden or life-threatening deterioration of the [respiratory, cardiovascular, renal & neurologic] system(s) required my full and direct attention, intervention and personal management. The aggregate critical care time was [36] minutes without overlap. Time includes spent on; [x] Data Review and interpretation [x] Patient assessment and monitoring of vital signs [x] Documentation [x] Medication orders and management Subjective Date of service: 06/19/21 Principal diagnosis: Ac hypoxemic resp failure; Cardiac arrest; Seizures; Sepsis; AMS; A-Fib RVR Interval history: Patient is seen today for: Acute hypoxemic respiratory failure; Cardiac arrest wtih ROSC; Seizure disorder; Sepsis; AMS; A-Fib with RVR Seen and examined at bedside; 24hour events reviewed; nursing and respiratory care staff consulted; no adverse overnight events reported to me; resting in bed; rested on MVS; on t-piece trial now but did not meet yesterdays goal so s hooting for 12 hours today; secretions thick but mild; growing E. Coli in trach aspirate culture Objective Vital Signs - 12hr 06/19/21 06/19/21 06/19/21 03:01 03:30 03:46 Temperature 99.2 F Pulse Rate 84 83 Pulse Rate [ From Monitor] Respiratory 21 18 Rate Blood Pressure 115/61 144/66 O2 Sat by Pulse 100 100 Oximetry O2 Sat by Pulse Oximetry [ Assessment] 06/19/21 06/19/21 06/19/21 03:57 03:59 04:00 Temperature Pulse Rate 84 82 Pulse Rate [ 85 From Monitor] Respiratory 17 Rate Blood Pressure 155/59 142/57 O2 Sat by Pulse 100 99 Oximetry O2 Sat by Pulse 100 Oximetry [ Assessment] 06/19/21 06/19/21 06/19/21 04:30 05:00 05:31 Temperature Pulse Rate 80 86 78 Pulse Rate [ From Monitor] Respiratory 12 15 24 Rate Blood Pressure 145/56 154/128 124/54 O2 Sat by Pulse 99 100 98 Oximetry O2 Sat by Pulse Oximetry [ Assessment] 06/19/21 06/19/21 06/19/21 06:00 06:31 06:48 Temperature Pulse Rate 76 83 79 Pulse Rate [ From Monitor] Respiratory 21 20 Rate Blood Pressure 120/48 160/61 160/61 O2 Sat by Pulse 100 100 Oximetry O2 Sat by Pulse Oximetry [ Assessment] 06/19/21 06/19/21 06/19/21 07:00 07:31 08:00 Temperature 99.5 F 100.1 F H Pulse Rate 82 84 81 Pulse Rate [ 82 From Monitor] Respiratory 21 27 H 24 Rate Blood Pressure 149/64 149/64 136/57 O2 Sat by Pulse 98 98 98 Oximetry O2 Sat by Pulse 100 Oximetry [ Assessment] 06/19/21 06/19/21 06/19/21 08:14 08:29 08:31 Temperature Pulse Rate 83 88 88 Pulse Rate [ From Monitor] Respiratory 26 H Rate Blood Pressure 136/57 136/57 136/57 O2 Sat by Pulse 99 100 100 Oximetry O2 Sat by Pulse Oximetry [ Assessment] 06/19/21 06/19/21 06/19/21 09:00 09:31 09:42 Temperature Pulse Rate 90 93 H 90 Pulse Rate [ From Monitor] Respiratory 30 H 35 H Rate Blood Pressure 150/63 150/63 150/63 O2 Sat by Pulse 100 100 Oximetry O2 Sat by Pulse Oximetry [ Assessment] 06/19/21 06/19/21 06/19/21 09:43 10:00 10:31 Temperature Pulse Rate 90 88 81 Pulse Rate [ From Monitor] Respiratory 35 H 27 H Rate Blood Pressure 150/63 162/66 162/66 O2 Sat by Pulse 100 100 Oximetry O2 Sat by Pulse Oximetry [ Assessment] 06/19/21 06/19/21 06/19/21 11:00 11:31 11:58 Temperature 98.2 F Pulse Rate 80 78 Pulse Rate [ From Monitor] Respiratory 31 H 29 H Rate Blood Pressure 146/64 146/64 O2 Sat by Pulse 100 100 Oximetry O2 Sat by Pulse Oximetry [ Assessment] 06/19/21 06/19/21 06/19/21 12:00 12:31 13:00 Temperature Pulse Rate 82 81 81 Pulse Rate [ From Monitor] Respiratory 33 H 36 H 28 H Rate Blood Pressure 154/71 154/71 153/70 O2 Sat by Pulse 100 100 100 Oximetry O2 Sat by Pulse Oximetry [ Assessment] 06/19/21 06/19/21 06/19/21 13:31 14:00 14:31 Temperature Pulse Rate 81 82 78 Pulse Rate [ From Monitor] Respiratory 28 H 32 H 24 Rate Blood Pressure 153/70 150/69 150/69 O2 Sat by Pulse 100 100 100 Oximetry O2 Sat by Pulse Oximetry [ Assessment] Constitutional: no acute distress, other (elderly female with mildly increased respiratory effort at rest on MVS) Eyes: non-icteric ENT: oropharynx moist, other (+ midline tracheostomy with mild tenacious secret ions) Neck: supple, no lymphadenopathy Effort: mildly labored Ascultation: Bilateral: diminished breath sounds, rhonchi (scant) Percussion: Bilateral: not dull Cardiovascular: regular rate and rhythm, other (S1,S2) Gastrointestinal: normoactive bowel sounds, soft, non-tender, non-distended (protuberant), other (+ PEG tube) Integumentary: normal Extremities: no cyanosis, pulses normal, no ischemia or petechiae, other (Right femoral CVL) Neurologic: pupils equal and round, unable to assess, other (encephalopathic) Psychiatric: other (unable to assess) CBC and BMP: 06/20/21 04:18 06/20/21 13:30 ABG, PT/INR, D-dimer: ABG ABG pH 7.471 (7.320-7.450) H 06/15/21 10:19 POC ABG pCO2 40.4 mmHg (32.0-48.0) 06/15/21 10:19 ABG pCO2 30.3 mm Hg 05/29/21 05:28 POC ABG pO2 90.1 mmHg (83-108) 06/15/21 10:19 ABG pO2 96.2 mm Hg (80.0-90.0) H 05/29/21 05:28 POC ABG HCO3 28.8 06/15/21 10:19 ABG O2 Saturation 97.4 (0-100) 06/15/21 10:19 PT/INR, D-dimer PT 14.5 Sec. (12.2-14.9) 06/16/21 18:51 INR 1.08 (0.87-1.13) 06/16/21 18:51 D-Dimer > 05611 ng/mlDDU (0-234) H 05/25/21 09:21 Abnormal lab findings: Abnormal Labs 05/25/21 05/25/21 05/25/21 09:07 09:21 09:21 WBC 17.1 H RBC Hgb Hct MCV 106 H MCH 33 H MCHC RDW 15.6 H [place] % (Auto) [place] # (Auto) Seg Neutrophils % Seg Neuts % (Manual) Lymphocytes % (Manual) Monocytes % (Manual) Seg Neutrophils # Seg Neutrophils # Man 10.1 H Lymphocytes # (Manual) 5.6 H Monocytes # (Manual) PT 15.0 H APTT 44.3 H D-Dimer > 84851 H Heparin Anti-Xa Level ABG pH 7.116 L POC ABG pCO2 POC ABG pO2 ABG pO2 ABG Hemoglobin ABG Oxyhemoglobin 93.7 L ABG Sodium ABG Potassium ABG Chloride ABG Glucose 395 H Carboxyhemoglobin Sodium Potassium Chloride Carbon Dioxide BUN Creatinine Glucose POC Glucose Lactic Acid Calcium Phosphorus Magnesium Ferritin AST ALT Alkaline Phosphatase Lactate Dehydrogenase Troponin T C-Reactive Protein Total Protein Albumin HDL Cholesterol Arterial Blood Glucose 395 H Arterial Blood Ionized Calcium 4.4 L Urine WBC (Auto) Urine Creatinine 05/25/21 05/25/21 05/25/21 09:21 09:21 09:21 WBC RBC Hgb Hct MCV MCH MCHC RDW [place] % (Auto) [place] # (Auto) Seg Neutrophils % Seg Neuts % (Manual) Lymphocytes % (Manual) Monocytes % (Manual) Seg Neutrophils # Seg Neutrophils # Man Lymphocytes # (Manual) Monocytes # (Manual) PT APTT D-Dimer Heparin Anti-Xa Level ABG pH POC ABG pCO2 POC ABG pO2 ABG pO2 ABG Hemoglobin ABG Oxyhemoglobin ABG Sodium ABG Potassium ABG Chloride ABG Glucose Carboxyhemoglobin Sodium Potassium Chloride Carbon Dioxide 10 L BUN Creatinine Glucose 423 H 424 H POC Glucose Lactic Acid Calcium 8.2 L Phosphorus Magnesium Ferritin 321.6 H AST 162 H ALT 119 H Alkaline Phosphatase Lactate Dehydrogenase 445 H Troponin T C-Reactive Protein Total Protein 5.6 L Albumin 3.2 L HDL Cholesterol Arterial Blood Glucose Arterial Blood Ionized Calcium Urine WBC (Auto) Urine Creatinine 05/25/21 05/25/21 05/25/21 09:35 10:42 11:12 WBC RBC Hgb Hct MCV MCH MCHC RDW [place] % (Auto) [place] # (Auto) Seg Neutrophils % Seg Neuts % (Manual) Lymphocytes % (Manual) Monocytes % (Manual) Seg Neutrophils # Seg Neutrophils # Man Lymphocytes # (Manual) Monocytes # (Manual) PT APTT D-Dimer Heparin Anti-Xa Level ABG pH POC ABG pCO2 POC ABG pO2 ABG pO2 ABG Hemoglobin ABG Oxyhemoglobin ABG Sodium ABG Potassium ABG Chloride ABG Glucose Carboxyhemoglobin Sodium Potassium Chloride Carbon Dioxide BUN Creatinine Glucose POC Glucose Lactic Acid 16.70 H* 7.70 H* Calcium Phosphorus Magnesium Ferritin AST ALT Alkaline Phosphatase Lactate Dehydrogenase Troponin T C-Reactive Protein Total Protein Albumin HDL Cholesterol Arterial Blood Glucose Arterial Blood Ionized Calcium Urine WBC (Auto) 11.0 H Urine Creatinine 05/25/21 05/25/21 05/25/21 14:07 15:19 19:04 WBC RBC Hgb Hct MCV MCH MCHC RDW [place] % (Auto) [place] # (Auto) Seg Neutrophils % Seg Neuts % (Manual) Lymphocytes % (Manual) Monocytes % (Manual) Seg Neutrophils # Seg Neutrophils # Man Lymphocytes # (Manual) Monocytes # (Manual) PT APTT D-Dimer Heparin Anti-Xa Level ABG pH POC ABG pCO2 POC ABG pO2 172.2 H ABG pO2 ABG Hemoglobin ABG Oxyhemoglobin 98.7 H ABG Sodium 135.7 L ABG Potassium ABG Chloride ABG Glucose 255 H Carboxyhemoglobin 0.3 L Sodium Potassium Chloride Carbon Dioxide BUN Creatinine Glucose POC Glucose Lactic Acid 3.90 H* Calcium Phosphorus Magnesium Ferritin AST ALT Alkaline Phosphatase Lactate Dehydrogenase Troponin T 0.226 H* D C-Reactive Protein Total Protein Albumin HDL Cholesterol 64 H Arterial Blood Glucose 255 H Arterial Blood Ionized Calcium 3.8 L Urine WBC (Auto) Urine Creatinine 05/25/21 05/25/21 05/26/21 21:16 21:16 04:00 WBC RBC Hgb Hct MCV MCH MCHC RDW [place] % (Auto) [place] # (Auto) Seg Neutrophils % Seg Neuts % (Manual) Lymphocytes % (Manual) Monocytes % (Manual) Seg Neutrophils # Seg Neutrophils # Man Lymphocytes # (Manual) Monocytes # (Manual) PT APTT D-Dimer Heparin Anti-Xa Level 1.19 H ABG pH 7.547 H POC ABG pCO2 POC ABG pO2 ABG pO2 ABG Hemoglobin 11.9 L ABG Oxyhemoglobin ABG Sodium 133.2 L ABG Potassium 3.1 L ABG Chloride ABG Glucose 243 H Carboxyhemoglobin 0.3 L Sodium Potassium Chloride Carbon Dioxide BUN Creatinine Glucose POC Glucose Lactic Acid 2.50 H* Calcium Phosphorus Magnesium Ferritin AST ALT Alkaline Phosphatase Lactate Dehydrogenase Troponin T C-Reactive Protein Total Protein Albumin HDL Cholesterol Arterial Blood Glucose 243 H Arterial Blood Ionized Calcium Urine WBC (Auto) Urine Creatinine 05/26/21 05/26/21 05/26/21 05:49 05:49 17:33 WBC RBC Hgb Hct MCV MCH MCHC RDW [place] % (Auto) [place] # (Auto) Seg Neutrophils % Seg Neuts % (Manual) Lymphocytes % (Manual) Monocytes % (Manual) Seg Neutrophils # Seg Neutrophils # Man Lymphocytes # (Manual) Monocytes # (Manual) PT APTT D-Dimer Heparin Anti-Xa Level ABG pH POC ABG pCO2 POC ABG pO2 ABG pO2 ABG Hemoglobin ABG Oxyhemoglobin ABG Sodium ABG Potassium ABG Chloride ABG Glucose Carboxyhemoglobin Sodium Potassium Chloride Carbon Dioxide BUN Creatinine Glucose 226 H POC Glucose 156 H Lactic Acid 2.30 H* Calcium 7.2 L Phosphorus Magnesium Ferritin AST 111 H ALT 97 H Alkaline Phosphatase Lactate Dehydrogenase Troponin T C-Reactive Protein Total Protein 5.4 L Albumin 3.3 L HDL Cholesterol Arterial Blood Glucose Arterial Blood Ionized Calcium Urine WBC (Auto) Urine Creatinine 05/27/21 05/27/21 05/27/21 02:11 02:11 02:11 WBC 14.3 H RBC 3.27 L Hgb Hct MCV 99 H MCH 33 H MCHC RDW 15.3 H [place] % (Auto) [place] # (Auto) 1.0 H Seg Neutrophils % Seg Neuts % (Manual) Lymphocytes % (Manual) Monocytes % (Manual) Seg Neutrophils # 10.0 H Seg Neutrophils # Man Lymphocytes # (Manual) Monocytes # (Manual) PT APTT D-Dimer Heparin Anti-Xa Level 0.80 H ABG pH POC ABG pCO2 POC ABG pO2 ABG pO2 ABG Hemoglobin ABG Oxyhemoglobin ABG Sodium ABG Potassium ABG Chloride ABG Glucose Carboxyhemoglobin Sodium Potassium 2.9 L* D Chloride Carbon Dioxide 31 H BUN 6 L Creatinine Glucose 215 H POC Glucose Lactic Acid Calcium 8.1 L Phosphorus Magnesium Ferritin AST ALT Alkaline Phosphatase Lactate Dehydrogenase Troponin T C-Reactive Protein Total Protein Albumin HDL Cholesterol Arterial Blood Glucose Arterial Blood Ionized Calcium Urine WBC (Auto) Urine Creatinine 05/27/21 05/27/21 05/27/21 11:24 12:49 18:06 WBC RBC Hgb Hct MCV MCH MCHC RDW [place] % (Auto) [place] # (Auto) Seg Neutrophils % Seg Neuts % (Manual) Lymphocytes % (Manual) Monocytes % (Manual) Seg Neutrophils # Seg Neutrophils # Man Lymphocytes # (Manual) Monocytes # (Manual) PT APTT D-Dimer Heparin Anti-Xa Level ABG pH POC ABG pCO2 POC ABG pO2 ABG pO2 ABG Hemoglobin ABG Oxyhemoglobin ABG Sodium ABG Potassium ABG Chloride ABG Glucose Carboxyhemoglobin Sodium Potassium Chloride Carbon Dioxide BUN Creatinine Glucose POC Glucose 151 H 165 H 137 H Lactic Acid Calcium Phosphorus Magnesium Ferritin AST ALT Alkaline Phosphatase Lactate Dehydrogenase Troponin T C-Reactive Protein Total Protein Albumin HDL Cholesterol Arterial Blood Glucose Arterial Blood Ionized Calcium Urine WBC (Auto) Urine Creatinine 05/28/21 05/28/21 05/28/21 04:00 04:00 06:02 WBC 13.5 H RBC 3.05 L Hgb Hct MCV 100 H MCH 34 H MCHC RDW [place] % (Auto) [place] # (Auto) 0.9 H Seg Neutrophils % 78.2 H Seg Neuts % (Manual) Lymphocytes % (Manual) Monocytes % (Manual) Seg Neutrophils # 10.6 H Seg Neutrophils # Man Lymphocytes # (Manual) Monocytes # (Manual) PT APTT D-Dimer Heparin Anti-Xa Level ABG pH 7.507 H POC ABG pCO2 POC ABG pO2 ABG pO2 ABG Hemoglobin 10.6 L ABG Oxyhemoglobin ABG Sodium 129.4 L ABG Potassium ABG Chloride ABG Glucose 243 H Carboxyhemoglobin 0.2 L Sodium 136 L D Potassium Chloride Carbon Dioxide BUN Creatinine Glucose 215 H POC Glucose Lactic Acid Calcium Phosphorus Magnesium Ferritin AST ALT Alkaline Phosphatase Lactate Dehydrogenase Troponin T C-Reactive Protein Total Protein Albumin HDL Cholesterol Arterial Blood Glucose 243 H Arterial Blood Ionized Calcium 4.1 L Urine WBC (Auto) Urine Creatinine 05/28/21 05/28/21 05/29/21 11:27 23:02 04:30 WBC RBC Hgb 9.3 L Hct 26.7 L MCV MCH MCHC RDW [place] % (Auto) [place] # (Auto) Seg Neutrophils % Seg Neuts % (Manual) Lymphocytes % (Manual) Monocytes % (Manual) Seg Neutrophils # Seg Neutrophils # Man Lymphocytes # (Manual) Monocytes # (Manual) PT APTT D-Dimer Heparin Anti-Xa Level ABG pH POC ABG pCO2 POC ABG pO2 ABG pO2 ABG Hemoglobin ABG Oxyhemoglobin ABG Sodium ABG Potassium ABG Chloride ABG Glucose Carboxyhemoglobin Sodium Potassium Chloride Carbon Dioxide BUN Creatinine Glucose POC Glucose 220 H 212 H Lactic Acid Calcium Phosphorus Magnesium Ferritin AST ALT Alkaline Phosphatase Lactate Dehydrogenase Troponin T C-Reactive Protein Total Protein Albumin HDL Cholesterol Arterial Blood Glucose Arterial Blood Ionized Calcium Urine WBC (Auto) Urine Creatinine 05/29/21 05/29/21 05/29/21 05:02 05:28 12:55 WBC RBC Hgb Hct MCV MCH MCHC RDW [place] % (Auto) [place] # (Auto) Seg Neutrophils % Seg Neuts % (Manual) Lymphocytes % (Manual) Monocytes % (Manual) Seg Neutrophils # Seg Neutrophils # Man Lymphocytes # (Manual) Monocytes # (Manual) PT APTT D-Dimer Heparin Anti-Xa Level ABG pH 7.516 H POC ABG pCO2 POC ABG pO2 ABG pO2 96.2 H ABG Hemoglobin 7.5 L ABG Oxyhemoglobin ABG Sodium ABG Potassium ABG Chloride ABG Glucose Carboxyhemoglobin Sodium Potassium Chloride Carbon Dioxide BUN Creatinine Glucose POC Glucose 197 H 251 H Lactic Acid Calcium Phosphorus Magnesium Ferritin AST ALT Alkaline Phosphatase Lactate Dehydrogenase Troponin T C-Reactive Protein Total Protein Albumin HDL Cholesterol Arterial Blood Glucose Arterial Blood Ionized Calcium Urine WBC (Auto) Urine Creatinine 05/29/21 05/29/21 05/30/21 18:23 23:31 04:10 WBC RBC Hgb Hct MCV MCH MCHC RDW [place] % (Auto) [place] # (Auto) Seg Neutrophils % Seg Neuts % (Manual) Lymphocytes % (Manual) Monocytes % (Manual) Seg Neutrophils # Seg Neutrophils # Man Lymphocytes # (Manual) Monocytes # (Manual) PT APTT D-Dimer Heparin Anti-Xa Level ABG pH 7.532 H POC ABG pCO2 30.0 L POC ABG pO2 78.5 L ABG pO2 ABG Hemoglobin 11.3 L ABG Oxyhemoglobin ABG Sodium 126.7 L ABG Potassium ABG Chloride 94.0 L ABG Glucose 270 H Carboxyhemoglobin 0.4 L Sodium Potassium Chloride Carbon Dioxide BUN Creatinine Glucose POC Glucose 236 H 252 H Lactic Acid Calcium Phosphorus Magnesium Ferritin AST ALT Alkaline Phosphatase Lactate Dehydrogenase Troponin T C-Reactive Protein Total Protein Albumin HDL Cholesterol Arterial Blood Glucose 270 H Arterial Blood Ionized Calcium 4.4 L Urine WBC (Auto) Urine Creatinine 05/30/21 05/30/21 05/30/21 05:06 06:23 11:15 WBC RBC Hgb Hct MCV MCH MCHC RDW [place] % (Auto) [place] # (Auto) Seg Neutrophils % Seg Neuts % (Manual) Lymphocytes % (Manual) Monocytes % (Manual) Seg Neutrophils # Seg Neutrophils # Man Lymphocytes # (Manual) Monocytes # (Manual) PT APTT D-Dimer Heparin Anti-Xa Level ABG pH POC ABG pCO2 POC ABG pO2 ABG pO2 ABG Hemoglobin ABG Oxyhemoglobin ABG Sodium ABG Potassium ABG Chloride ABG Glucose Carboxyhemoglobin Sodium 126 L D Potassium Chloride 91.9 L Carbon Dioxide 20 L D BUN Creatinine 0.4 L Glucose 274 H POC Glucose 242 H 346 H Lactic Acid Calcium Phosphorus Magnesium Ferritin AST ALT Alkaline Phosphatase Lactate Dehydrogenase Troponin T C-Reactive Protein Total Protein Albumin HDL Cholesterol Arterial Blood Glucose Arterial Blood Ionized Calcium Urine WBC (Auto) Urine Creatinine 09/05/30/21 05/30/21 11:19 11:19 11:19 WBC 18.9 H RBC 3.36 L Hgb Hct MCV 102 H MCH 33 H MCHC RDW 15.5 H [place] % (Auto) [place] # (Auto) Seg Neutrophils % Seg Neuts % (Manual) Lymphocytes % (Manual) Monocytes % (Manual) Seg Neutrophils # Seg Neutrophils # Man Lymphocytes # (Manual) Monocytes # (Manual) PT APTT D-Dimer Heparin Anti-Xa Level < 0.10 L ABG pH POC ABG pCO2 POC ABG pO2 ABG pO2 ABG Hemoglobin ABG Oxyhemoglobin ABG Sodium ABG Potassium ABG Chloride ABG Glucose Carboxyhemoglobin Sodium 124 L Potassium Chloride Carbon Dioxide BUN Creatinine Glucose POC Glucose Lactic Acid Calcium Phosphorus Magnesium Ferritin AST ALT Alkaline Phosphatase Lactate Dehydrogenase Troponin T C-Reactive Protein Total Protein Albumin HDL Cholesterol Arterial Blood Glucose Arterial Blood Ionized Calcium Urine WBC (Auto) Urine Creatinine 05/30/21 05/30/21 05/31/21 17:02 23:27 03:37 WBC RBC Hgb Hct MCV MCH MCHC RDW [place] % (Auto) [place] # (Auto) Seg Neutrophils % Seg Neuts % (Manual) Lymphocytes % (Manual) Monocytes % (Manual) Seg Neutrophils # Seg Neutrophils # Man Lymphocytes # (Manual) Monocytes # (Manual) PT APTT D-Dimer Heparin Anti-Xa Level ABG pH POC ABG pCO2 POC ABG pO2 ABG pO2 ABG Hemoglobin 11.6 L ABG Oxyhemoglobin ABG Sodium 130.0 L ABG Potassium ABG Chloride 95.0 L ABG Glucose 292 H Carboxyhemoglobin Sodium Potassium Chloride Carbon Dioxide BUN Creatinine Glucose POC Glucose 270 H 237 H Lactic Acid Calcium Phosphorus Magnesium Ferritin AST ALT Alkaline Phosphatase Lactate Dehydrogenase Troponin T C-Reactive Protein Total Protein Albumin HDL Cholesterol Arterial Blood Glucose 292 H Arterial Blood Ionized Calcium Urine WBC (Auto) Urine Creatinine 05/31/21 05/31/21 05/31/21 04:00 04:00 05:20 WBC 20.9 H RBC 3.13 L Hgb Hct MCV 99 H MCH 34 H MCHC RDW [place] % (Auto) [place] # (Auto) Seg Neutrophils % Seg Neuts % (Manual) 81.0 H Lymphocytes % (Manual) 8.0 L Monocytes % (Manual) 9.0 H Seg Neutrophils # Seg Neutrophils # Man 16.9 H Lymphocytes # (Manual) Monocytes # (Manual) 1.9 H PT APTT D-Dimer Heparin Anti-Xa Level ABG pH POC ABG pCO2 POC ABG pO2 ABG pO2 ABG Hemoglobin ABG Oxyhemoglobin ABG Sodium ABG Potassium ABG Chloride ABG Glucose Carboxyhemoglobin Sodium 133 L D Potassium Chloride 95.4 L Carbon Dioxide 21 L BUN 30 H Creatinine 0.5 L Glucose 305 H POC Glucose 269 H Lactic Acid Calcium Phosphorus Magnesium Ferritin AST ALT Alkaline Phosphatase Lactate Dehydrogenase Troponin T C-Reactive Protein Total Protein Albumin HDL Cholesterol Arterial Blood Glucose Arterial Blood Ionized Calcium Urine WBC (Auto) Urine Creatinine 05/31/21 05/31/21 05/31/21 11:40 18:16 23:25 WBC RBC Hgb Hct MCV MCH MCHC RDW [place] % (Auto) [place] # (Auto) Seg Neutrophils % Seg Neuts % (Manual) Lymphocytes % (Manual) Monocytes % (Manual) Seg Neutrophils # Seg Neutrophils # Man Lymphocytes # (Manual) Monocytes # (Manual) PT APTT D-Dimer Heparin Anti-Xa Level ABG pH POC ABG pCO2 POC ABG pO2 ABG pO2 ABG Hemoglobin ABG Oxyhemoglobin ABG Sodium ABG Potassium ABG Chloride ABG Glucose Carboxyhemoglobin Sodium Potassium Chloride Carbon Dioxide BUN Creatinine Glucose POC Glucose 364 H 250 H 231 H Lactic Acid Calcium Phosphorus Magnesium Ferritin AST ALT Alkaline Phosphatase Lactate Dehydrogenase Troponin T C-Reactive Protein Total Protein Albumin HDL Cholesterol Arterial Blood Glucose Arterial Blood Ionized Calcium Urine WBC (Auto) Urine Creatinine 06/01/21 06/01/21 06/01/21 04:03 04:58 04:58 WBC 20.7 H RBC 3.20 L Hgb Hct MCV 99 H MCH 34 H MCHC RDW [place] % (Auto) [place] # (Auto) Seg Neutrophils % Seg Neuts % (Manual) 82.0 H Lymphocytes % (Manual) 9.0 L Monocytes % (Manual) Seg Neutrophils # Seg Neutrophils # Man 17.0 H Lymphocytes # (Manual) Monocytes # (Manual) 1.4 H PT APTT D-Dimer Heparin Anti-Xa Level 1.18 H ABG pH 7.520 H POC ABG pCO2 POC ABG pO2 66.0 L ABG pO2 ABG Hemoglobin ABG Oxyhemoglobin 92.5 L ABG Sodium 133.6 L ABG Potassium ABG Chloride ABG Glucose 250 H Carboxyhemoglobin Sodium Potassium Chloride Carbon Dioxide BUN Creatinine Glucose POC Glucose Lactic Acid Calcium Phosphorus Magnesium Ferritin AST ALT Alkaline Phosphatase Lactate Dehydrogenase Troponin T C-Reactive Protein Total Protein Albumin HDL Cholesterol Arterial Blood Glucose 250 H Arterial Blood Ionized Calcium 4.4 L Urine WBC (Auto) Urine Creatinine 06/01/21 06/01/21 06/01/21 04:58 05:29 11:39 WBC RBC Hgb Hct MCV MCH MCHC RDW [place] % (Auto) [place] # (Auto) Seg Neutrophils % Seg Neuts % (Manual) Lymphocytes % (Manual) Monocytes % (Manual) Seg Neutrophils # Seg Neutrophils # Man Lymphocytes # (Manual) Monocytes # (Manual) PT APTT D-Dimer Heparin Anti-Xa Level ABG pH POC ABG pCO2 POC ABG pO2 ABG pO2 ABG Hemoglobin ABG Oxyhemoglobin ABG Sodium ABG Potassium ABG Chloride ABG Glucose Carboxyhemoglobin Sodium 131 L Potassium Chloride 95.7 L Carbon Dioxide BUN 30 H Creatinine 0.5 L Glucose 241 H POC Glucose 215 H 299 H Lactic Acid Calcium Phosphorus Magnesium Ferritin AST ALT Alkaline Phosphatase Lactate Dehydrogenase Troponin T C-Reactive Protein Total Protein Albumin HDL Cholesterol Arterial Blood Glucose Arterial Blood Ionized Calcium Urine WBC (Auto) Urine Creatinine 06/01/21 06/02/21 06/02/21 18:14 00:12 02:25 WBC 17.4 H RBC 3.09 L Hgb Hct MCV 101 H MCH 34 H MCHC RDW 15.5 H [place] % (Auto) [place] # (Auto) Seg Neutrophils % Seg Neuts % (Manual) Lymphocytes % (Manual) Monocytes % (Manual) Seg Neutrophils # Seg Neutrophils # Man Lymphocytes # (Manual) Monocytes # (Manual) PT APTT D-Dimer Heparin Anti-Xa Level ABG pH POC ABG pCO2 POC ABG pO2 ABG pO2 ABG Hemoglobin ABG Oxyhemoglobin ABG Sodium ABG Potassium ABG Chloride ABG Glucose Carboxyhemoglobin Sodium Potassium Chloride Carbon Dioxide BUN Creatinine Glucose POC Glucose 215 H 175 H Lactic Acid Calcium Phosphorus Magnesium Ferritin AST ALT Alkaline Phosphatase Lactate Dehydrogenase Troponin T C-Reactive Protein Total Protein Albumin HDL Cholesterol Arterial Blood Glucose Arterial Blood Ionized Calcium Urine WBC (Auto) Urine Creatinine 06/02/21 06/02/21 06/02/21 02:25 04:13 04:58 WBC RBC Hgb Hct MCV MCH MCHC RDW [place] % (Auto) [place] # (Auto) Seg Neutrophils % Seg Neuts % (Manual) Lymphocytes % (Manual) Monocytes % (Manual) Seg Neutrophils # Seg Neutrophils # Man Lymphocytes # (Manual) Monocytes # (Manual) PT APTT D-Dimer Heparin Anti-Xa Level ABG pH 7.481 H POC ABG pCO2 POC ABG pO2 80.0 L ABG pO2 ABG Hemoglobin 11.1 L ABG Oxyhemoglobin ABG Sodium 131.9 L ABG Potassium ABG Chloride ABG Glucose 231 H Carboxyhemoglobin 0.2 L Sodium 134 L Potassium Chloride 95.8 L Carbon Dioxide BUN 31 H Creatinine 0.5 L Glucose 168 H POC Glucose 230 H Lactic Acid Calcium Phosphorus Magnesium Ferritin AST ALT Alkaline Phosphatase Lactate Dehydrogenase Troponin T C-Reactive Protein Total Protein Albumin HDL Cholesterol Arterial Blood Glucose 231 H Arterial Blood Ionized Calcium Urine WBC (Auto) Urine Creatinine 06/02/21 06/02/21 06/02/21 11:27 17:47 23:53 WBC RBC Hgb Hct MCV MCH MCHC RDW [place] % (Auto) [place] # (Auto) Seg Neutrophils % Seg Neuts % (Manual) Lymphocytes % (Manual) Monocytes % (Manual) Seg Neutrophils # Seg Neutrophils # Man Lymphocytes # (Manual) Monocytes # (Manual) PT APTT D-Dimer Heparin Anti-Xa Level 0.80 H ABG pH POC ABG pCO2 POC ABG pO2 ABG pO2 ABG Hemoglobin ABG Oxyhemoglobin ABG Sodium ABG Potassium ABG Chloride ABG Glucose Carboxyhemoglobin Sodium Potassium Chloride Carbon Dioxide BUN Creatinine Glucose POC Glucose 259 H 297 H Lactic Acid Calcium Phosphorus Magnesium Ferritin AST ALT Alkaline Phosphatase Lactate Dehydrogenase Troponin T C-Reactive Protein Total Protein Albumin HDL Cholesterol Arterial Blood Glucose Arterial Blood Ionized Calcium Urine WBC (Auto) Urine Creatinine 06/03/21 06/03/21 06/03/21 00:05 05:23 09:10 WBC RBC Hgb Hct MCV MCH MCHC RDW [place] % (Auto) [place] # (Auto) Seg Neutrophils % Seg Neuts % (Manual) Lymphocytes % (Manual) Monocytes % (Manual) Seg Neutrophils # Seg Neutrophils # Man Lymphocytes # (Manual) Monocytes # (Manual) PT APTT D-Dimer Heparin Anti-Xa Level 0.84 H ABG pH POC ABG pCO2 POC ABG pO2 ABG pO2 ABG Hemoglobin ABG Oxyhemoglobin ABG Sodium ABG Potassium ABG Chloride ABG Glucose Carboxyhemoglobin Sodium Potassium Chloride Carbon Dioxide BUN Creatinine Glucose POC Glucose 268 H 170 H Lactic Acid Calcium Phosphorus Magnesium Ferritin AST ALT Alkaline Phosphatase Lactate Dehydrogenase Troponin T C-Reactive Protein Total Protein Albumin HDL Cholesterol Arterial Blood Glucose Arterial Blood Ionized Calcium Urine WBC (Auto) Urine Creatinine 06/03/21 06/03/21 06/03/21 12:06 20:22 23:30 WBC RBC Hgb Hct MCV MCH MCHC RDW [place] % (Auto) [place] # (Auto) Seg Neutrophils % Seg Neuts % (Manual) Lymphocytes % (Manual) Monocytes % (Manual) Seg Neutrophils # Seg Neutrophils # Man Lymphocytes # (Manual) Monocytes # (Manual) PT APTT D-Dimer Heparin Anti-Xa Level ABG pH POC ABG pCO2 POC ABG pO2 ABG pO2 ABG Hemoglobin ABG Oxyhemoglobin ABG Sodium ABG Potassium ABG Chloride ABG Glucose Carboxyhemoglobin Sodium Potassium Chloride Carbon Dioxide BUN Creatinine Glucose POC Glucose 275 H 260 H 215 H Lactic Acid Calcium Phosphorus Magnesium Ferritin AST ALT Alkaline Phosphatase Lactate Dehydrogenase Troponin T C-Reactive Protein Total Protein Albumin HDL Cholesterol Arterial Blood Glucose Arterial Blood Ionized Calcium Urine WBC (Auto) Urine Creatinine 06/04/21 06/04/21 06/04/21 05:03 05:57 05:57 WBC 17.8 H RBC 2.83 L Hgb 9.6 L Hct 28.4 L MCV 100 H MCH 34 H MCHC RDW 15.5 H [place] % (Auto) [place] # (Auto) Seg Neutrophils % Seg Neuts % (Manual) 83.0 H Lymphocytes % (Manual) 4.0 L Monocytes % (Manual) Seg Neutrophils # Seg Neutrophils # Man 14.8 H Lymphocytes # (Manual) 0.7 L Monocytes # (Manual) 1.1 H PT APTT D-Dimer Heparin Anti-Xa Level ABG pH POC ABG pCO2 POC ABG pO2 ABG pO2 ABG Hemoglobin ABG Oxyhemoglobin ABG Sodium ABG Potassium ABG Chloride ABG Glucose Carboxyhemoglobin Sodium 135 L Potassium Chloride 96.3 L Carbon Dioxide BUN 51 H Creatinine Glucose 275 H POC Glucose 257 H Lactic Acid Calcium Phosphorus Magnesium Ferritin AST ALT Alkaline Phosphatase Lactate Dehydrogenase Troponin T C-Reactive Protein Total Protein Albumin HDL Cholesterol Arterial Blood Glucose Arterial Blood Ionized Calcium Urine WBC (Auto) Urine Creatinine 06/04/21 06/04/21 06/04/21 09:48 11:08 17:33 WBC RBC Hgb Hct MCV MCH MCHC RDW [place] % (Auto) [place] # (Auto) Seg Neutrophils % Seg Neuts % (Manual) Lymphocytes % (Manual) Monocytes % (Manual) Seg Neutrophils # Seg Neutrophils # Man Lymphocytes # (Manual) Monocytes # (Manual) PT APTT D-Dimer Heparin Anti-Xa Level ABG pH POC ABG pCO2 POC ABG pO2 ABG pO2 ABG Hemoglobin ABG Oxyhemoglobin ABG Sodium ABG Potassium ABG Chloride ABG Glucose Carboxyhemoglobin Sodium Potassium Chloride Carbon Dioxide BUN Creatinine Glucose POC Glucose 198 H 234 H 247 H Lactic Acid Calcium Phosphorus Magnesium Ferritin AST ALT Alkaline Phosphatase Lactate Dehydrogenase Troponin T C-Reactive Protein Total Protein Albumin HDL Cholesterol Arterial Blood Glucose Arterial Blood Ionized Calcium Urine WBC (Auto) Urine Creatinine 06/04/21 06/05/21 06/05/21 23:30 05:38 11:24 WBC RBC Hgb Hct MCV MCH MCHC RDW [place] % (Auto) [place] # (Auto) Seg Neutrophils % Seg Neuts % (Manual) Lymphocytes % (Manual) Monocytes % (Manual) Seg Neutrophils # Seg Neutrophils # Man Lymphocytes # (Manual) Monocytes # (Manual) PT APTT D-Dimer Heparin Anti-Xa Level ABG pH POC ABG pCO2 POC ABG pO2 ABG pO2 ABG Hemoglobin ABG Oxyhemoglobin ABG Sodium ABG Potassium ABG Chloride ABG Glucose Carboxyhemoglobin Sodium Potassium Chloride Carbon Dioxide BUN Creatinine Glucose POC Glucose 192 H 192 H 287 H Lactic Acid Calcium Phosphorus Magnesium Ferritin AST ALT Alkaline Phosphatase Lactate Dehydrogenase Troponin T C-Reactive Protein Total Protein Albumin HDL Cholesterol Arterial Blood Glucose Arterial Blood Ionized Calcium Urine WBC (Auto) Urine Creatinine 06/05/21 06/05/21 06/05/21 12:20 12:20 12:20 WBC 16.2 H RBC 2.56 L Hgb 8.8 L Hct 25.2 L MCV 98 H MCH 35 H MCHC 35 H RDW 15.3 H [place] % (Auto) [place] # (Auto) Seg Neutrophils % Seg Neuts % (Manual) Lymphocytes % (Manual) Monocytes % (Manual) Seg Neutrophils # Seg Neutrophils # Man Lymphocytes # (Manual) Monocytes # (Manual) PT APTT 72.2 H* D-Dimer Heparin Anti-Xa Level ABG pH POC ABG pCO2 POC ABG pO2 ABG pO2 ABG Hemoglobin ABG Oxyhemoglobin ABG Sodium ABG Potassium ABG Chloride ABG Glucose Carboxyhemoglobin Sodium 133 L Potassium Chloride 95.3 L Carbon Dioxide BUN 57 H Creatinine Glucose 313 H POC Glucose Lactic Acid Calcium Phosphorus Magnesium Ferritin AST 90 H ALT 79 H Alkaline Phosphatase 262 H Lactate Dehydrogenase Troponin T C-Reactive Protein Total Protein Albumin 2.7 L HDL Cholesterol Arterial Blood Glucose Arterial Blood Ionized Calcium Urine WBC (Auto) Urine Creatinine 06/05/21 06/05/21 06/05/21 17:50 22:57 23:36 WBC RBC Hgb Hct MCV MCH MCHC RDW [place] % (Auto) [place] # (Auto) Seg Neutrophils % Seg Neuts % (Manual) Lymphocytes % (Manual) Monocytes % (Manual) Seg Neutrophils # Seg Neutrophils # Man Lymphocytes # (Manual) Monocytes # (Manual) PT APTT D-Dimer Heparin Anti-Xa Level 0.28 L ABG pH POC ABG pCO2 POC ABG pO2 ABG pO2 ABG Hemoglobin ABG Oxyhemoglobin ABG Sodium ABG Potassium ABG Chloride ABG Glucose Carboxyhemoglobin Sodium Potassium Chloride Carbon Dioxide BUN Creatinine Glucose POC Glucose 275 H 223 H Lactic Acid Calcium Phosphorus Magnesium Ferritin AST ALT Alkaline Phosphatase Lactate Dehydrogenase Troponin T C-Reactive Protein Total Protein Albumin HDL Cholesterol Arterial Blood Glucose Arterial Blood Ionized Calcium Urine WBC (Auto) Urine Creatinine 06/06/21 06/06/21 06/06/21 04:57 04:57 05:02 WBC 15.7 H RBC 2.77 L Hgb 9.4 L Hct 27.2 L MCV 98 H MCH 34 H MCHC RDW 15.4 H [place] % (Auto) [place] # (Auto) Seg Neutrophils % Seg Neuts % (Manual) Lymphocytes % (Manual) Monocytes % (Manual) Seg Neutrophils # Seg Neutrophils # Man Lymphocytes # (Manual) Monocytes # (Manual) PT APTT D-Dimer Heparin Anti-Xa Level ABG pH POC ABG pCO2 POC ABG pO2 ABG pO2 ABG Hemoglobin ABG Oxyhemoglobin ABG Sodium ABG Potassium ABG Chloride ABG Glucose Carboxyhemoglobin Sodium Potassium 5.7 H Chloride Carbon Dioxide BUN 57 H Creatinine Glucose 245 H POC Glucose 217 H Lactic Acid Calcium Phosphorus Magnesium Ferritin AST 99 H ALT 136 H Alkaline Phosphatase 312 H Lactate Dehydrogenase Troponin T C-Reactive Protein Total Protein 6.1 L Albumin 3.1 L HDL Cholesterol Arterial Blood Glucose Arterial Blood Ionized Calcium Urine WBC (Auto) Urine Creatinine 06/06/21 06/06/21 06/06/21 11:37 17:34 18:09 WBC RBC Hgb Hct MCV MCH MCHC RDW [place] % (Auto) [place] # (Auto) Seg Neutrophils % Seg Neuts % (Manual) Lymphocytes % (Manual) Monocytes % (Manual) Seg Neutrophils # Seg Neutrophils # Man Lymphocytes # (Manual) Monocytes # (Manual) PT APTT D-Dimer Heparin Anti-Xa Level ABG pH POC ABG pCO2 POC ABG pO2 ABG pO2 ABG Hemoglobin ABG Oxyhemoglobin ABG Sodium ABG Potassium ABG Chloride ABG Glucose Carboxyhemoglobin Sodium Potassium 5.2 H Chloride Carbon Dioxide BUN 48 H Creatinine Glucose 245 H POC Glucose 251 H 217 H Lactic Acid Calcium Phosphorus Magnesium Ferritin AST ALT Alkaline Phosphatase Lactate Dehydrogenase Troponin T C-Reactive Protein Total Protein Albumin HDL Cholesterol Arterial Blood Glucose Arterial Blood Ionized Calcium Urine WBC (Auto) Urine Creatinine 06/06/21 06/07/21 06/07/21 23:53 04:45 04:45 WBC 21.5 H RBC 2.71 L Hgb 9.0 L Hct 26.9 L MCV 99 H MCH 33 H MCHC RDW 15.3 H [place] % (Auto) [place] # (Auto) Seg Neutrophils % Seg Neuts % (Manual) Lymphocytes % (Manual) Monocytes % (Manual) Seg Neutrophils # Seg Neutrophils # Man Lymphocytes # (Manual) Monocytes # (Manual) PT APTT D-Dimer Heparin Anti-Xa Level 0.10 L ABG pH POC ABG pCO2 POC ABG pO2 ABG pO2 ABG Hemoglobin ABG Oxyhemoglobin ABG Sodium ABG Potassium ABG Chloride ABG Glucose Carboxyhemoglobin Sodium Potassium Chloride Carbon Dioxide BUN Creatinine Glucose POC Glucose 224 H Lactic Acid Calcium Phosphorus Magnesium Ferritin AST ALT Alkaline Phosphatase Lactate Dehydrogenase Troponin T C-Reactive Protein Total Protein Albumin HDL Cholesterol Arterial Blood Glucose Arterial Blood Ionized Calcium Urine WBC (Auto) Urine Creatinine 06/07/21 06/07/21 06/07/21 04:45 05:11 11:50 WBC RBC Hgb Hct MCV MCH MCHC RDW [place] % (Auto) [place] # (Auto) Seg Neutrophils % Seg Neuts % (Manual) Lymphocytes % (Manual) Monocytes % (Manual) Seg Neutrophils # Seg Neutrophils # Man Lymphocytes # (Manual) Monocytes # (Manual) PT APTT D-Dimer Heparin Anti-Xa Level ABG pH POC ABG pCO2 POC ABG pO2 ABG pO2 ABG Hemoglobin ABG Oxyhemoglobin ABG Sodium ABG Potassium ABG Chloride ABG Glucose Carboxyhemoglobin Sodium Potassium 5.4 H Chloride Carbon Dioxide BUN 55 H Creatinine Glucose 178 H POC Glucose 156 H 118 H Lactic Acid Calcium Phosphorus Magnesium Ferritin AST ALT Alkaline Phosphatase Lactate Dehydrogenase Troponin T C-Reactive Protein Total Protein Albumin HDL Cholesterol Arterial Blood Glucose Arterial Blood Ionized Calcium Urine WBC (Auto) Urine Creatinine 06/07/21 06/07/21 06/07/21 14:52 17:45 20:43 WBC RBC Hgb Hct MCV MCH MCHC RDW [place] % (Auto) [place] # (Auto) Seg Neutrophils % Seg Neuts % (Manual) Lymphocytes % (Manual) Monocytes % (Manual) Seg Neutrophils # Seg Neutrophils # Man Lymphocytes # (Manual) Monocytes # (Manual) PT APTT D-Dimer Heparin Anti-Xa Level 0.73 H ABG pH POC ABG pCO2 POC ABG pO2 ABG pO2 ABG Hemoglobin ABG Oxyhemoglobin ABG Sodium ABG Potassium ABG Chloride ABG Glucose Carboxyhemoglobin Sodium Potassium Chloride Carbon Dioxide BUN Creatinine Glucose POC Glucose 164 H Lactic Acid Calcium Phosphorus Magnesium Ferritin AST ALT Alkaline Phosphatase Lactate Dehydrogenase Troponin T C-Reactive Protein 28.90 H Total Protein Albumin HDL Cholesterol Arterial Blood Glucose Arterial Blood Ionized Calcium Urine WBC (Auto) Urine Creatinine 06/07/21 06/08/21 06/08/21 23:15 04:25 04:25 WBC 15.8 H RBC 2.58 L Hgb 8.6 L Hct 25.7 L MCV 100 H MCH 33 H MCHC RDW [place] % (Auto) [place] # (Auto) Seg Neutrophils % Seg Neuts % (Manual) 76.0 H Lymphocytes % (Manual) 6.0 L Monocytes % (Manual) 8.0 H Seg Neutrophils # Seg Neutrophils # Man 12.0 H Lymphocytes # (Manual) 0.9 L Monocytes # (Manual) 1.3 H PT APTT D-Dimer Heparin Anti-Xa Level ABG pH POC ABG pCO2 POC ABG pO2 ABG pO2 ABG Hemoglobin ABG Oxyhemoglobin ABG Sodium ABG Potassium ABG Chloride ABG Glucose Carboxyhemoglobin Sodium Potassium Chloride Carbon Dioxide BUN 65 H Creatinine Glucose 205 H POC Glucose 236 H Lactic Acid Calcium Phosphorus Magnesium Ferritin AST ALT Alkaline Phosphatase Lactate Dehydrogenase Troponin T C-Reactive Protein Total Protein Albumin HDL Cholesterol Arterial Blood Glucose Arterial Blood Ionized Calcium Urine WBC (Auto) Urine Creatinine 06/08/21 06/08/21 06/08/21 05:36 11:18 17:41 WBC RBC Hgb Hct MCV MCH MCHC RDW [place] % (Auto) [place] # (Auto) Seg Neutrophils % Seg Neuts % (Manual) Lymphocytes % (Manual) Monocytes % (Manual) Seg Neutrophils # Seg Neutrophils # Man Lymphocytes # (Manual) Monocytes # (Manual) PT APTT D-Dimer Heparin Anti-Xa Level ABG pH POC ABG pCO2 POC ABG pO2 ABG pO2 ABG Hemoglobin ABG Oxyhemoglobin ABG Sodium ABG Potassium ABG Chloride ABG Glucose Carboxyhemoglobin Sodium Potassium Chloride Carbon Dioxide BUN Creatinine Glucose POC Glucose 185 H 203 H 173 H Lactic Acid Calcium Phosphorus Magnesium Ferritin AST ALT Alkaline Phosphatase Lactate Dehydrogenase Troponin T C-Reactive Protein Total Protein Albumin HDL Cholesterol Arterial Blood Glucose Arterial Blood Ionized Calcium Urine WBC (Auto) Urine Creatinine 06/08/21 06/09/21 06/09/21 23:34 05:16 05:20 WBC 15.0 H RBC 2.54 L Hgb 8.5 L Hct 25.2 L MCV 99 H MCH 33 H MCHC RDW [place] % (Auto) [place] # (Auto) Seg Neutrophils % Seg Neuts % (Manual) Lymphocytes % (Manual) Monocytes % (Manual) Seg Neutrophils # Seg Neutrophils # Man Lymphocytes # (Manual) Monocytes # (Manual) PT APTT D-Dimer Heparin Anti-Xa Level ABG pH POC ABG pCO2 POC ABG pO2 ABG pO2 ABG Hemoglobin ABG Oxyhemoglobin ABG Sodium ABG Potassium ABG Chloride ABG Glucose Carboxyhemoglobin Sodium Potassium Chloride Carbon Dioxide BUN Creatinine Glucose POC Glucose 200 H 154 H Lactic Acid Calcium Phosphorus Magnesium Ferritin AST ALT Alkaline Phosphatase Lactate Dehydrogenase Troponin T C-Reactive Protein Total Protein Albumin HDL Cholesterol Arterial Blood Glucose Arterial Blood Ionized Calcium Urine WBC (Auto) Urine Creatinine 06/09/21 06/09/21 06/09/21 05:20 11:40 17:09 WBC RBC Hgb Hct MCV MCH MCHC RDW [place] % (Auto) [place] # (Auto) Seg Neutrophils % Seg Neuts % (Manual) Lymphocytes % (Manual) Monocytes % (Manual) Seg Neutrophils # Seg Neutrophils # Man Lymphocytes # (Manual) Monocytes # (Manual) PT APTT D-Dimer Heparin Anti-Xa Level ABG pH POC ABG pCO2 POC ABG pO2 ABG pO2 ABG Hemoglobin ABG Oxyhemoglobin ABG Sodium ABG Potassium ABG Chloride ABG Glucose Carboxyhemoglobin Sodium Potassium 5.2 H Chloride Carbon Dioxide BUN 69 H Creatinine Glucose 163 H POC Glucose 232 H 137 H Lactic Acid Calcium Phosphorus Magnesium Ferritin AST ALT Alkaline Phosphatase Lactate Dehydrogenase Troponin T C-Reactive Protein Total Protein Albumin HDL Cholesterol Arterial Blood Glucose Arterial Blood Ionized Calcium Urine WBC (Auto) Urine Creatinine 06/09/21 06/10/21 06/10/21 23:31 04:42 04:42 WBC 14.5 H RBC 2.41 L Hgb 8.2 L Hct 24.0 L MCV 100 H MCH 34 H MCHC RDW 15.8 H [place] % (Auto) [place] # (Auto) Seg Neutrophils % Seg Neuts % (Manual) Lymphocytes % (Manual) Monocytes % (Manual) Seg Neutrophils # Seg Neutrophils # Man Lymphocytes # (Manual) Monocytes # (Manual) PT APTT D-Dimer Heparin Anti-Xa Level ABG pH POC ABG pCO2 POC ABG pO2 ABG pO2 ABG Hemoglobin ABG Oxyhemoglobin ABG Sodium ABG Potassium ABG Chloride ABG Glucose Carboxyhemoglobin Sodium 146 H D Potassium 3.4 L D Chloride Carbon Dioxide BUN 62 H Creatinine Glucose 174 H POC Glucose 162 H Lactic Acid Calcium Phosphorus Magnesium Ferritin AST ALT Alkaline Phosphatase Lactate Dehydrogenase Troponin T C-Reactive Protein Total Protein Albumin HDL Cholesterol Arterial Blood Glucose Arterial Blood Ionized Calcium Urine WBC (Auto) Urine Creatinine 06/10/21 06/10/21 06/10/21 05:36 11:43 18:24 WBC RBC Hgb Hct MCV MCH MCHC RDW [place] % (Auto) [place] # (Auto) Seg Neutrophils % Seg Neuts % (Manual) Lymphocytes % (Manual) Monocytes % (Manual) Seg Neutrophils # Seg Neutrophils # Man Lymphocytes # (Manual) Monocytes # (Manual) PT APTT D-Dimer Heparin Anti-Xa Level ABG pH POC ABG pCO2 POC ABG pO2 ABG pO2 ABG Hemoglobin ABG Oxyhemoglobin ABG Sodium ABG Potassium ABG Chloride ABG Glucose Carboxyhemoglobin Sodium Potassium Chloride Carbon Dioxide BUN Creatinine Glucose POC Glucose 149 H 183 H 139 H Lactic Acid Calcium Phosphorus Magnesium Ferritin AST ALT Alkaline Phosphatase Lactate Dehydrogenase Troponin T C-Reactive Protein Total Protein Albumin HDL Cholesterol Arterial Blood Glucose Arterial Blood Ionized Calcium Urine WBC (Auto) Urine Creatinine 06/10/21 06/11/21 06/11/21 23:32 04:17 05:22 WBC RBC Hgb Hct MCV MCH MCHC RDW [place] % (Auto) [place] # (Auto) Seg Neutrophils % Seg Neuts % (Manual) Lymphocytes % (Manual) Monocytes % (Manual) Seg Neutrophils # Seg Neutrophils # Man Lymphocytes # (Manual) Monocytes # (Manual) PT APTT D-Dimer Heparin Anti-Xa Level 0.84 H ABG pH POC ABG pCO2 POC ABG pO2 ABG pO2 ABG Hemoglobin ABG Oxyhemoglobin ABG Sodium ABG Potassium ABG Chloride ABG Glucose Carboxyhemoglobin Sodium Potassium Chloride Carbon Dioxide BUN Creatinine Glucose POC Glucose 149 H 138 H Lactic Acid Calcium Phosphorus Magnesium Ferritin AST ALT Alkaline Phosphatase Lactate Dehydrogenase Troponin T C-Reactive Protein Total Protein Albumin HDL Cholesterol Arterial Blood Glucose Arterial Blood Ionized Calcium Urine WBC (Auto) Urine Creatinine 06/11/21 06/11/21 06/12/21 11:26 23:56 04:44 WBC 15.5 H RBC 2.59 L Hgb 8.6 L Hct 25.8 L MCV 100 H MCH 33 H MCHC RDW 15.3 H [place] % (Auto) [place] # (Auto) Seg Neutrophils % Seg Neuts % (Manual) Lymphocytes % (Manual) Monocytes % (Manual) Seg Neutrophils # Seg Neutrophils # Man Lymphocytes # (Manual) Monocytes # (Manual) PT APTT D-Dimer Heparin Anti-Xa Level ABG pH POC ABG pCO2 POC ABG pO2 ABG pO2 ABG Hemoglobin ABG Oxyhemoglobin ABG Sodium ABG Potassium ABG Chloride ABG Glucose Carboxyhemoglobin Sodium Potassium Chloride Carbon Dioxide BUN Creatinine Glucose POC Glucose 198 H 199 H Lactic Acid Calcium Phosphorus Magnesium Ferritin AST ALT Alkaline Phosphatase Lactate Dehydrogenase Troponin T C-Reactive Protein Total Protein Albumin HDL Cholesterol Arterial Blood Glucose Arterial Blood Ionized Calcium Urine WBC (Auto) Urine Creatinine 06/12/21 06/12/21 06/12/21 04:44 04:44 05:29 WBC RBC Hgb Hct MCV MCH MCHC RDW [place] % (Auto) [place] # (Auto) Seg Neutrophils % Seg Neuts % (Manual) Lymphocytes % (Manual) Monocytes % (Manual) Seg Neutrophils # Seg Neutrophils # Man Lymphocytes # (Manual) Monocytes # (Manual) PT APTT D-Dimer Heparin Anti-Xa Level ABG pH POC ABG pCO2 POC ABG pO2 ABG pO2 ABG Hemoglobin ABG Oxyhemoglobin ABG Sodium ABG Potassium ABG Chloride ABG Glucose Carboxyhemoglobin Sodium 148 H Potassium Chloride Carbon Dioxide BUN 49 H 51 H Creatinine Glucose 222 H 223 H POC Glucose 193 H Lactic Acid Calcium Phosphorus Magnesium 3.20 H Ferritin AST 81 H ALT 83 H Alkaline Phosphatase 215 H Lactate Dehydrogenase Troponin T C-Reactive Protein Total Protein Albumin 3.2 L HDL Cholesterol Arterial Blood Glucose Arterial Blood Ionized Calcium Urine WBC (Auto) Urine Creatinine 06/12/21 06/12/21 06/12/21 11:21 17:55 23:23 WBC RBC Hgb Hct MCV MCH MCHC RDW [place] % (Auto) [place] # (Auto) Seg Neutrophils % Seg Neuts % (Manual) Lymphocytes % (Manual) Monocytes % (Manual) Seg Neutrophils # Seg Neutrophils # Man Lymphocytes # (Manual) Monocytes # (Manual) PT APTT D-Dimer Heparin Anti-Xa Level ABG pH POC ABG pCO2 POC ABG pO2 ABG pO2 ABG Hemoglobin ABG Oxyhemoglobin ABG Sodium ABG Potassium ABG Chloride ABG Glucose Carboxyhemoglobin Sodium Potassium Chloride Carbon Dioxide BUN Creatinine Glucose POC Glucose 185 H 210 H 211 H Lactic Acid Calcium Phosphorus Magnesium Ferritin AST ALT Alkaline Phosphatase Lactate Dehydrogenase Troponin T C-Reactive Protein Total Protein Albumin HDL Cholesterol Arterial Blood Glucose Arterial Blood Ionized Calcium Urine WBC (Auto) Urine Creatinine 06/13/21 06/13/21 06/13/21 04:34 04:34 05:17 WBC 17.2 H RBC 2.56 L Hgb 8.6 L Hct 26.1 L MCV 102 H MCH 34 H MCHC RDW [place] % (Auto) [place] # (Auto) Seg Neutrophils % Seg Neuts % (Manual) Lymphocytes % (Manual) Monocytes % (Manual) Seg Neutrophils # Seg Neutrophils # Man Lymphocytes # (Manual) Monocytes # (Manual) PT APTT D-Dimer Heparin Anti-Xa Level ABG pH POC ABG pCO2 POC ABG pO2 ABG pO2 ABG Hemoglobin ABG Oxyhemoglobin ABG Sodium ABG Potassium ABG Chloride ABG Glucose Carboxyhemoglobin Sodium 149 H Potassium 5.1 H Chloride Carbon Dioxide BUN 52 H Creatinine 1.6 H Glucose 231 H POC Glucose 207 H Lactic Acid Calcium Phosphorus Magnesium Ferritin AST 69 H ALT 74 H Alkaline Phosphatase 197 H Lactate Dehydrogenase Troponin T C-Reactive Protein Total Protein Albumin 3.0 L HDL Cholesterol Arterial Blood Glucose Arterial Blood Ionized Calcium Urine WBC (Auto) Urine Creatinine 06/13/21 06/13/21 06/13/21 10:44 11:07 12:07 WBC RBC Hgb Hct MCV MCH MCHC RDW [place] % (Auto) [place] # (Auto) Seg Neutrophils % Seg Neuts % (Manual) Lymphocytes % (Manual) Monocytes % (Manual) Seg Neutrophils # Seg Neutrophils # Man Lymphocytes # (Manual) Monocytes # (Manual) PT APTT D-Dimer Heparin Anti-Xa Level < 0.10 L ABG pH 7.455 H POC ABG pCO2 POC ABG pO2 ABG pO2 ABG Hemoglobin 8.6 L ABG Oxyhemoglobin ABG Sodium ABG Potassium 4.7 H ABG Chloride ABG Glucose 277 H Carboxyhemoglobin Sodium Potassium Chloride Carbon Dioxide BUN Creatinine Glucose POC Glucose 241 H Lactic Acid Calcium Phosphorus Magnesium Ferritin AST ALT Alkaline Phosphatase Lactate Dehydrogenase Troponin T C-Reactive Protein Total Protein Albumin HDL Cholesterol Arterial Blood Glucose 277 H Arterial Blood Ionized Calcium Urine WBC (Auto) Urine Creatinine 06/13/21 06/13/21 06/13/21 17:35 21:13 23:19 WBC RBC Hgb Hct MCV MCH MCHC RDW [place] % (Auto) [place] # (Auto) Seg Neutrophils % Seg Neuts % (Manual) Lymphocytes % (Manual) Monocytes % (Manual) Seg Neutrophils # Seg Neutrophils # Man Lymphocytes # (Manual) Monocytes # (Manual) PT APTT D-Dimer Heparin Anti-Xa Level 0.92 H ABG pH POC ABG pCO2 POC ABG pO2 ABG pO2 ABG Hemoglobin ABG Oxyhemoglobin ABG Sodium ABG Potassium ABG Chloride ABG Glucose Carboxyhemoglobin Sodium Potassium Chloride Carbon Dioxide BUN Creatinine Glucose POC Glucose 233 H 232 H Lactic Acid Calcium Phosphorus Magnesium Ferritin AST ALT Alkaline Phosphatase Lactate Dehydrogenase Troponin T C-Reactive Protein Total Protein Albumin HDL Cholesterol Arterial Blood Glucose Arterial Blood Ionized Calcium Urine WBC (Auto) Urine Creatinine 06/14/21 06/14/21 06/14/21 04:21 04:21 05:36 WBC 15.6 H RBC 2.26 L Hgb 7.6 L Hct 22.9 L MCV 101 H MCH 34 H MCHC RDW 15.3 H [place] % (Auto) [place] # (Auto) Seg Neutrophils % Seg Neuts % (Manual) Lymphocytes % (Manual) Monocytes % (Manual) Seg Neutrophils # Seg Neutrophils # Man Lymphocytes # (Manual) Monocytes # (Manual) PT APTT D-Dimer Heparin Anti-Xa Level ABG pH POC ABG pCO2 POC ABG pO2 ABG pO2 ABG Hemoglobin ABG Oxyhemoglobin ABG Sodium ABG Potassium ABG Chloride ABG Glucose Carboxyhemoglobin Sodium 149 H Potassium Chloride 107.8 H Carbon Dioxide BUN 66 H Creatinine 1.8 H Glucose 192 H POC Glucose 166 H Lactic Acid Calcium Phosphorus Magnesium Ferritin AST ALT Alkaline Phosphatase Lactate Dehydrogenase Troponin T C-Reactive Protein Total Protein Albumin HDL Cholesterol Arterial Blood Glucose Arterial Blood Ionized Calcium Urine WBC (Auto) Urine Creatinine 06/14/21 06/14/21 06/14/21 12:21 17:07 23:14 WBC RBC Hgb Hct MCV MCH MCHC RDW [place] % (Auto) [place] # (Auto) Seg Neutrophils % Seg Neuts % (Manual) Lymphocytes % (Manual) Monocytes % (Manual) Seg Neutrophils # Seg Neutrophils # Man Lymphocytes # (Manual) Monocytes # (Manual) PT APTT D-Dimer Heparin Anti-Xa Level ABG pH POC ABG pCO2 POC ABG pO2 ABG pO2 ABG Hemoglobin ABG Oxyhemoglobin ABG Sodium ABG Potassium ABG Chloride ABG Glucose Carboxyhemoglobin Sodium Potassium Chloride Carbon Dioxide BUN Creatinine Glucose POC Glucose 190 H 172 H 195 H Lactic Acid Calcium Phosphorus Magnesium Ferritin AST ALT Alkaline Phosphatase Lactate Dehydrogenase Troponin T C-Reactive Protein Total Protein Albumin HDL Cholesterol Arterial Blood Glucose Arterial Blood Ionized Calcium Urine WBC (Auto) Urine Creatinine 06/15/21 06/15/21 06/15/21 05:08 05:08 05:47 WBC 15.3 H RBC 2.23 L Hgb 7.3 L Hct 22.5 L MCV 101 H MCH 33 H MCHC RDW [place] % (Auto) [place] # (Auto) Seg Neutrophils % Seg Neuts % (Manual) Lymphocytes % (Manual) Monocytes % (Manual) Seg Neutrophils # Seg Neutrophils # Man Lymphocytes # (Manual) Monocytes # (Manual) PT APTT D-Dimer Heparin Anti-Xa Level ABG pH POC ABG pCO2 POC ABG pO2 ABG pO2 ABG Hemoglobin ABG Oxyhemoglobin ABG Sodium ABG Potassium ABG Chloride ABG Glucose Carboxyhemoglobin Sodium 147 H Potassium Chloride Carbon Dioxide BUN 60 H Creatinine 1.6 H Glucose 158 H POC Glucose 150 H Lactic Acid Calcium 8.2 L Phosphorus 5.90 H Magnesium 3.20 H Ferritin AST ALT Alkaline Phosphatase Lactate Dehydrogenase Troponin T C-Reactive Protein Total Protein Albumin HDL Cholesterol Arterial Blood Glucose Arterial Blood Ionized Calcium Urine WBC (Auto) Urine Creatinine 06/15/21 06/15/21 06/15/21 10:19 11:25 17:47 WBC RBC Hgb Hct MCV MCH MCHC RDW [place] % (Auto) [place] # (Auto) Seg Neutrophils % Seg Neuts % (Manual) Lymphocytes % (Manual) Monocytes % (Manual) Seg Neutrophils # Seg Neutrophils # Man Lymphocytes # (Manual) Monocytes # (Manual) PT APTT D-Dimer Heparin Anti-Xa Level ABG pH 7.471 H POC ABG pCO2 POC ABG pO2 ABG pO2 ABG Hemoglobin ABG Oxyhemoglobin ABG Sodium ABG Potassium ABG Chloride ABG Glucose Carboxyhemoglobin Sodium Potassium Chloride Carbon Dioxide BUN Creatinine Glucose POC Glucose 133 H 201 H Lactic Acid Calcium Phosphorus Magnesium Ferritin AST ALT Alkaline Phosphatase Lactate Dehydrogenase Troponin T C-Reactive Protein Total Protein Albumin HDL Cholesterol Arterial Blood Glucose Arterial Blood Ionized Calcium Urine WBC (Auto) Urine Creatinine 06/15/21 06/15/21 06/16/21 23:43 Unknown 04:31 WBC 13.8 H RBC 2.23 L Hgb 7.5 L Hct 22.4 L MCV 101 H MCH 34 H MCHC RDW [place] % (Auto) [place] # (Auto) Seg Neutrophils % Seg Neuts % (Manual) Lymphocytes % (Manual) Monocytes % (Manual) Seg Neutrophils # Seg Neutrophils # Man Lymphocytes # (Manual) Monocytes # (Manual) PT APTT D-Dimer Heparin Anti-Xa Level ABG pH POC ABG pCO2 POC ABG pO2 ABG pO2 ABG Hemoglobin ABG Oxyhemoglobin ABG Sodium ABG Potassium ABG Chloride ABG Glucose Carboxyhemoglobin Sodium Potassium Chloride Carbon Dioxide BUN Creatinine Glucose POC Glucose 148 H Lactic Acid Calcium Phosphorus Magnesium Ferritin AST ALT Alkaline Phosphatase Lactate Dehydrogenase Troponin T C-Reactive Protein Total Protein Albumin HDL Cholesterol Arterial Blood Glucose Arterial Blood Ionized Calcium Urine WBC (Auto) Urine Creatinine 74.7 H 06/16/21 06/16/21 06/16/21 04:31 05:48 11:47 WBC RBC Hgb Hct MCV MCH MCHC RDW [place] % (Auto) [place] # (Auto) Seg Neutrophils % Seg Neuts % (Manual) Lymphocytes % (Manual) Monocytes % (Manual) Seg Neutrophils # Seg Neutrophils # Man Lymphocytes # (Manual) Monocytes # (Manual) PT APTT D-Dimer Heparin Anti-Xa Level ABG pH POC ABG pCO2 POC ABG pO2 ABG pO2 ABG Hemoglobin ABG Oxyhemoglobin ABG Sodium ABG Potassium ABG Chloride ABG Glucose Carboxyhemoglobin Sodium Potassium Chloride Carbon Dioxide BUN 49 H Creatinine 1.3 H Glucose 194 H POC Glucose 184 H 190 H Lactic Acid Calcium Phosphorus 5.40 H Magnesium 2.90 H Ferritin AST ALT Alkaline Phosphatase Lactate Dehydrogenase Troponin T C-Reactive Protein Total Protein Albumin HDL Cholesterol Arterial Blood Glucose Arterial Blood Ionized Calcium Urine WBC (Auto) Urine Creatinine 10/04/2906/16/21 06/16/21 18:51 18:51 23:13 WBC 12.4 H RBC 2.22 L Hgb 7.3 L Hct 22.4 L MCV 101 H MCH 33 H MCHC RDW [place] % (Auto) [place] # (Auto) Seg Neutrophils % Seg Neuts % (Manual) Lymphocytes % (Manual) Monocytes % (Manual) Seg Neutrophils # Seg Neutrophils # Man Lymphocytes # (Manual) Monocytes # (Manual) PT APTT 64.1 H* D-Dimer Heparin Anti-Xa Level ABG pH POC ABG pCO2 POC ABG pO2 ABG pO2 ABG Hemoglobin ABG Oxyhemoglobin ABG Sodium ABG Potassium ABG Chloride ABG Glucose Carboxyhemoglobin Sodium Potassium Chloride Carbon Dioxide BUN Creatinine Glucose POC Glucose 160 H Lactic Acid Calcium Phosphorus Magnesium Ferritin AST ALT Alkaline Phosphatase Lactate Dehydrogenase Troponin T C-Reactive Protein Total Protein Albumin HDL Cholesterol Arterial Blood Glucose Arterial Blood Ionized Calcium Urine WBC (Auto) Urine Creatinine 06/17/21 06/17/21 06/17/21 04:19 05:02 11:56 WBC RBC Hgb Hct MCV MCH MCHC RDW [place] % (Auto) [place] # (Auto) Seg Neutrophils % Seg Neuts % (Manual) Lymphocytes % (Manual) Monocytes % (Manual) Seg Neutrophils # Seg Neutrophils # Man Lymphocytes # (Manual) Monocytes # (Manual) PT APTT D-Dimer Heparin Anti-Xa Level 1.53 H ABG pH POC ABG pCO2 POC ABG pO2 ABG pO2 ABG Hemoglobin ABG Oxyhemoglobin ABG Sodium ABG Potassium ABG Chloride ABG Glucose Carboxyhemoglobin Sodium Potassium Chloride Carbon Dioxide BUN Creatinine Glucose POC Glucose 167 H 166 H Lactic Acid Calcium Phosphorus Magnesium Ferritin AST ALT Alkaline Phosphatase Lactate Dehydrogenase Troponin T C-Reactive Protein Total Protein Albumin HDL Cholesterol Arterial Blood Glucose Arterial Blood Ionized Calcium Urine WBC (Auto) Urine Creatinine 06/17/21 06/17/21 06/17/21 17:48 22:42 23:08 WBC RBC Hgb Hct MCV MCH MCHC RDW [place] % (Auto) [place] # (Auto) Seg Neutrophils % Seg Neuts % (Manual) Lymphocytes % (Manual) Monocytes % (Manual) Seg Neutrophils # Seg Neutrophils # Man Lymphocytes # (Manual) Monocytes # (Manual) PT APTT D-Dimer Heparin Anti-Xa Level ABG pH POC ABG pCO2 POC ABG pO2 ABG pO2 ABG Hemoglobin ABG Oxyhemoglobin ABG Sodium ABG Potassium ABG Chloride ABG Glucose Carboxyhemoglobin Sodium Potassium Chloride Carbon Dioxide BUN Creatinine Glucose POC Glucose 159 H 122 H 114 H Lactic Acid Calcium Phosphorus Magnesium Ferritin AST ALT Alkaline Phosphatase Lactate Dehydrogenase Troponin T C-Reactive Protein Total Protein Albumin HDL Cholesterol Arterial Blood Glucose Arterial Blood Ionized Calcium Urine WBC (Auto) Urine Creatinine 06/18/21 06/18/21 06/18/21 05:40 06:20 13:11 WBC RBC 2.19 L Hgb 7.3 L Hct 21.9 L MCV 100 H MCH 33 H MCHC RDW [place] % (Auto) [place] # (Auto) Seg Neutrophils % Seg Neuts % (Manual) Lymphocytes % (Manual) Monocytes % (Manual) Seg Neutrophils # Seg Neutrophils # Man Lymphocytes # (Manual) Monocytes # (Manual) PT APTT D-Dimer Heparin Anti-Xa Level ABG pH POC ABG pCO2 POC ABG pO2 ABG pO2 ABG Hemoglobin ABG Oxyhemoglobin ABG Sodium ABG Potassium ABG Chloride ABG Glucose Carboxyhemoglobin Sodium Potassium Chloride Carbon Dioxide BUN Creatinine Glucose POC Glucose 174 H 149 H Lactic Acid Calcium Phosphorus Magnesium Ferritin AST ALT Alkaline Phosphatase Lactate Dehydrogenase Troponin T C-Reactive Protein Total Protein Albumin HDL Cholesterol Arterial Blood Glucose Arterial Blood Ionized Calcium Urine WBC (Auto) Urine Creatinine 06/18/21 06/18/21 06/18/21 18:50 21:45 23:12 WBC RBC Hgb Hct MCV MCH MCHC RDW [place] % (Auto) [place] # (Auto) Seg Neutrophils % Seg Neuts % (Manual) Lymphocytes % (Manual) Monocytes % (Manual) Seg Neutrophils # Seg Neutrophils # Man Lymphocytes # (Manual) Monocytes # (Manual) PT APTT D-Dimer Heparin Anti-Xa Level ABG pH POC ABG pCO2 POC ABG pO2 ABG pO2 ABG Hemoglobin ABG Oxyhemoglobin ABG Sodium ABG Potassium ABG Chloride ABG Glucose Carboxyhemoglobin Sodium Potassium Chloride Carbon Dioxide BUN Creatinine Glucose POC Glucose 152 H 151 H 178 H Lactic Acid Calcium Phosphorus Magnesium Ferritin AST ALT Alkaline Phosphatase Lactate Dehydrogenase Troponin T C-Reactive Protein Total Protein Albumin HDL Cholesterol Arterial Blood Glucose Arterial Blood Ionized Calcium Urine WBC (Auto) Urine Creatinine 06/19/21 06/19/21 06/19/21 06:20 06:20 11:54 WBC RBC 2.19 L Hgb 7.4 L Hct 22.2 L MCV 102 H MCH 34 H MCHC RDW [place] % (Auto) 11.3 H [place] # (Auto) 1.0 H Seg Neutrophils % Seg Neuts % (Manual) Lymphocytes % (Manual) Monocytes % (Manual) Seg Neutrophils # Seg Neutrophils # Man Lymphocytes # (Manual) Monocytes # (Manual) PT APTT D-Dimer Heparin Anti-Xa Level ABG pH POC ABG pCO2 POC ABG pO2 ABG pO2 ABG Hemoglobin ABG Oxyhemoglobin ABG Sodium ABG Potassium ABG Chloride ABG Glucose Carboxyhemoglobin Sodium 148 H Potassium Chloride 109.4 H Carbon Dioxide BUN 26 H Creatinine Glucose 109 H POC Glucose 131 H Lactic Acid Calcium Phosphorus Magnesium 2.40 H Ferritin AST ALT Alkaline Phosphatase Lactate Dehydrogenase Troponin T C-Reactive Protein Total Protein Albumin HDL Cholesterol Arterial Blood Glucose Arterial Blood Ionized Calcium Urine WBC (Auto) Urine Creatinine Chest x-ray: pending Allied health notes reviewed: nursing
--- NOTE | 2021-06-19 18:48 | Progress Note ---
Assessment and Plan Assessment and plan: Assessment and plan: This is a 65 year old female with HTN, nonepileptic spells, PTSD, close head injury, DM, CAD s/p stents and [place], independence, hyperlipidemia admitted with sepsis, pneumonia, acute proximal respiratory failure, toxic metabolic encephalopathy, suspected anoxic brain injury, metabolic acidosis Hospital Course to Date: 05/26/21: Updated family at the bedside, Covid test is negative. Will order EEG and neuro consult. Remains intubated, follow clinically. Sedated on Midazolam and Propofol, just received one dose of Lorazepam for witnessed seizure by RN. NSR now, on heparin drip 05/27/21; remains intubated. pending EEG and neuro eval. wean off vent as tolerated. Continue heparin drip per cardiology, replete potassium yesterday, follow BMP. BP noted to be elevated, next started on antihypertensives. 05/28/21; BP noted to be elevated, initiated on antihypertensive, remains intubated. Pending neurology evaluation and EEG. Continue supportive care, follow BMP. 05/29/21: Ordered for MRI brain, continue Keppra, pending EEG. Appreciate neuro recommendation. follow BMP, tolerating TF 05/30/21: Patient remains intubated, pending MRI brain, follow neurology recommendation. EEG showed diffuse slowing. 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 off sedation now, cont to follow. gurded prognosis 06/01: MRI was suggestive of watershed infarct bilaterally and was seen by neurology and recommend to do MRI with gadolinium. Patient is off sedation and still unresponsive. Prognosis is guarded. 06/02: Continue current management. Prognosis is guarded. Patient needs trach. 06/03: Patient is unresponsive spite of all sedatives. Prognosis is guarded to poor. Neurology consult appreciated. 06/04: Patient is unresponsive. Patient is off sedatives. Blood sugar is uncontrolled and I adjusted her insulin. Neurology consult appreciated. Prognosis is guarded to poor. 06/05/21- Patient remains ETT and on vent support. Off sedation with some improvement in neuro status, but is not following commands. Patient is tolerating SBT trial this am, still on the heparin gtt. AM labs is pending. Patient is still hyperglycemic, increased Qhs lantus. Continue supportive care. 06/06/21- Patient is intubated and on the vent. No longer on sedation, awake but unresponsive, tolerating SBT. Hyperglycemia this am, X1 dose of kayaxalate orderd. Persistent hyperglycemia, insulin adjusted. Continue to monitor electrolytes, repeat BMP this afternoon and am labs ordered. 06/07/21- Patient remains intubated and on the vent. Neuro status is unchanged, spontaneously open yes but is not following commands. SBT trial again, plan to place back on a rate overnight. Leukocytosis noted from this morning lab, stat procalc and CRP ordered, d/w CCM no abx at this time. K 5.4 today, kayalalxate given. Continue to monitor leukocytosis and electrolytes. Am labs ordered 06/08/21- Patient remains intubated and on the vent with no significant change in her neuro status. Patient with no BM in 7days, abdominal soft with positive bowel sounds, colace added and PRN ducolax Supp PRN. Continue to monitor leukocytosis and electrolytes, am labs ordered. Plan for trach and PEG, surgery consulted. 06/09/21- Patient remains stable, intubated with no significant change in neuro status. Trach and Peg cancelled for today. Plan for possibly next week. Hyperkalemia again today, chart review for possible meds interaction. X1 dose of kayexalate ordered. Still no BM today. Episode of emesis today, TF held and NGT to LIS until tommorrow. Orders place for KUB today and Chest XR for the morning. Morning labs ordered. 06/10: Continue supportive care. Trach and PEG planned for early next week. KUB and x-ray with no significant change. Opacity still persist. Critical care management noted. Patient still persistent leukocytosis we will continue to monitor mild hypokalemia noted will replace with potassium. Also noted mild hypernatremia. Agree with holding tube feeds at this time 06/11: Discussed with nursing staff to change to history trickle feeds. Patient is planned for trach and PEG Saturday or Saturday. Continue current management also discussed to hold heparin drip for planned procedure with noted timeframe. We will recheck labs to ensure correction of electrolytes. 06/12/21- Patient's status is unchanged. No significant events overnight. Plan for trach and PEG today. TF and heparin gtt on hold. Continue supportive care. Continue to monitor electrolytes, am labs ordered. 06/13/21- Patient is s/p trach and PEG. D/w surgery okay to use PEGTube and restart TF. Heparin gtt was also restarted per protocol. Persistent hypernatremia and FWF increased for 48hrs, mild hyperkalemia noted no intervention at this time. Continue to monitor renal function and electrolytes, am labs ordered. 06/14: Transition to PO anticoagulation from heparin gtt tomorrow. plan to place on tpiece tomorrow. 06/15: Patient spiked a temp today and was root cultured, h/h decreasing and stool occult ordered. Increase in insulin. T piece trials today. Small volume emesis x2 06/16; patient is on T-piece, On heparin drip for A. fib, will transition to Eliquis , I discussed the case with cutter operator brick 06/17; tracheal cultures positive for gram-negative rods, ordered cefepime, follow cultures Consider ID consult 06/18 no significant change, patient receiving cefepime[sputum cultures gram- negative rods] Follow sensitivities, ID if needed 06/19- Patient was place on Tpiece this morning, plan for Tpiece for 12hrs and rest on the vent overnight. Patient remains afebrile, leukocytosis improved, and patient remains on empiric IV abx. D/W CCM possible ID consult if worsen. Assessment and Plan Neuro: Toxic metabolic encephalopathy, likely anoxic brain injury, tonic-cloninc seziure; h/o nonepileptic spells, PTSD, closed head injury -Neurology consulted, appreciate recommendations -CT head completed->see results, without acute or large territorial infarct -Per neurology: MRI brain is suggestive of water shed Infarct Bilateral -- mostly related to Hypoperfusion -06/01 repeat MRI brain noted, possible subacute ischemic changes. -Intact cough/gag, pupils sluggish -Keppra -EEG showed no signs of seizure -prn ativan -Patient is off sedation, open eyes spontaneously, pupils reactive, with +gag and cough. -Not following commands, no movement to stimuli Cardio: S/p cardiac arrest, A. fib with RVR, h/o HTN -Currently on Labetalol, Hydralazine, valsartan, & Doxazosin -PRN hydral IV -Cardiology consulted, appreciate recommendations -05/2020 dobutamine thallium stress test showed normal perfusion study. -05/2020 echo showed normal left ventricular systolic function. -NIBP per protocol Resp: Acute hypoxic respiratory failure -CCM consulted, appreciate recommendations - s/p trach on 06/12 -06/15 T piece trials started, currently on T-piece -see RT notes for titration -ABG/CXR -Continuous SP02 monitoring -Scopalamine and robinul for secretions -discontinued today -VAP bundle GI: protein -aspen malnutrition -Ntr consult for TF -PEG placed 06/12 -PPI -24hr +1630 -BR: senokot, maalox, colace; prn dulcolex -BM: 06/10 : Acute renal injury likely / to vasomotor nephrology -increase noted in bun/cr 06/13 -strict I&O -daily weights -urine lytes ordered -purwick -Trend BMP -Monitor and replete electrolytes as needed -FWF 250 q 4hours -hypernatremia and Cr slightly improving Endo: Hyperglycemia, h/o DM -SSI -Lantus, titrate as needed -Avoid hypoglycemia -accucheck q6 Heme: Leukocytosis -CTA chest without evidence of PE -IV heparin d/t afib -transitioned to PO -CAMILO-VASC2 score 4 -Trend CBC -Transfuse for hgb<7 ID: Sepsis, Bilateral Lower Lobe Infiltrates -COVID 19 PCR (-) -s/p cefepime 05/25-05/29 -admit cxr with infiltrates, CTA chest with dense dependent consolidation/atelectasis in lungs -Monitor temp and WBC curve -noted spike in temp overnight -CXR, Blood culture, UA, Sputum culture ordered -BC/UC/Tracheal aspirate NGTD from 05/25 -Covid 19 PCR negative -06/07 CRP 28.90 and procal 0.36 -Tracheal aspirate gram-negative rods, empiric antibiotics cefepime ordered, follow culture sensitivities -Consider ID evaluation if needed The high probability of a clinically significant, sudden or life threatening deterioration of the [multiple] system(s) required my full and direct attention, intervention and personal management. The aggregate critical care time was [60] minutes. This time is in addition to time spent performing reported procedures but includes the following: [x] Data Review and interpretation [x] Patient assessment and monitoring of vital signs [x] Documentation [x] Medication orders and management Disposition Plan: LTACH pending Total Time Spent with Patient (Minutes): 60 History Interval history: Patient seen and examined at the bedside. Neuro status unchanged, awake and opening eyes spontaneously, but not following any commands. No significant events overnight. Hospitalist Physical - Constitutional Vitals: Temp Pulse Resp BP Pulse Ox 99.2 F 83 27 H 157/67 100 06/19/21 16:00 06/19/21 18:00 06/19/21 18:00 06/19/21 18:00 06/19/21 18:00 General appearance: Present: no acute distress, well-nourished - EENT Eyes: Present: PERRL - Respiratory Respiratory effort: normal Respiratory: bilateral: rhonchi - Cardiovascular Rhythm: regular Heart Sounds: Present: S1 & S2 - Extremities Extremities: pulses intact Extremity abnormal: edema - Peripheral Assessment Generalized Edema Degree: 1+ Capillary Refill: < 3 seconds Skin Temperature: Warm Peripheral Pulses: within normal limits - Abdominal General gastrointestinal: soft, non-tender, normal bowel sounds - Integumentary Integumentary: Present: warm, dry - Psychiatric Psychiatric: other ([facility]) - Neurologic Neurologic: other ([facility]) - Allied Health Allied health notes reviewed: nursing HEART Score - HEART Score Troponin: Troponin T 0.226 ng/mL (0.00-0.029) H* D 05/25/21 15:19 Results - Labs CBC & Chem 7: 06/19/21 06:20 06/19/21 06:20 Labs: Laboratory Last Values WBC 8.5 K/mm3 (4.5-11.0) 06/19/21 06:20 RBC 2.19 M/mm3 (3.65-5.03) L 06/19/21 06:20 Hgb 7.4 gm/dl (10.1-14.3) L 06/19/21 06:20 Hct 22.2 % (30.3-42.9) L 06/19/21 06:20 MCV 102 fl (79-97) H 06/19/21 06:20 MCH 34 pg (28-32) H 06/19/21 06:20 MCHC 33 % (30-34) 06/19/21 06:20 RDW 14.8 % (13.2-15.2) 06/19/21 06:20 Plt Count 269 K/mm3 (140-440) 06/19/21 06:20 Lymph % (Auto) 17.6 % (13.4-35.0) 06/19/21 06:20 [place] % (Auto) 11.3 % (0.0-7.3) H 06/19/21 06:20 Eos % (Auto) 2.8 % (0.0-4.3) 06/19/21 06:20 Baso % (Auto) 0.5 % (0.0-1.8) 06/19/21 06:20 Lymph # (Auto) 1.5 K/mm3 (1.2-5.4) 06/19/21 06:20 [place] # (Auto) 1.0 K/mm3 (0.0-0.8) H 06/19/21 06:20 Eos # (Auto) 0.2 K/mm3 (0.0-0.4) 06/19/21 06:20 Baso # (Auto) 0.0 K/mm3 (0.0-0.1) 06/19/21 06:20 Add Manual Diff Complete 06/08/21 04:25 Total Counted 100 06/08/21 04:25 Seg Neutrophils % 67.8 % (40.0-70.0) 06/19/21 06:20 Seg Neuts % (Manual) 76.0 % (40.0-70.0) H 06/08/21 04:25 Band Neutrophils % 4.0 % 06/08/21 04:25 Lymphocytes % (Manual) 6.0 % (13.4-35.0) L 06/08/21 04:25 Monocytes % (Manual) 8.0 % (0.0-7.3) H 06/08/21 04:25 Eosinophils % (Manual) 1.0 % (0.0-4.3) 06/08/21 04:25 Metamyelocytes % 3.0 % 06/08/21 04:25 Myelocytes % 2.0 % 06/08/21 04:25 Nucleated RBC % Not Reportable 06/08/21 04:25 Seg Neutrophils # 5.7 K/mm3 (1.8-7.7) 06/19/21 06:20 Seg Neutrophils # Man 12.0 K/mm3 (1.8-7.7) H 06/08/21 04:25 Band Neutrophils # 0.6 K/mm3 06/08/21 04:25 Lymphocytes # (Manual) 0.9 K/mm3 (1.2-5.4) L 06/08/21 04:25 Abs React Lymphs (Man) 0.0 K/mm3 06/08/21 04:25 Monocytes # (Manual) 1.3 K/mm3 (0.0-0.8) H 06/08/21 04:25 Eosinophils # (Manual) 0.2 K/mm3 (0.0-0.4) 06/08/21 04:25 Basophils # (Manual) 0.0 K/mm3 (0.0-0.1) 06/08/21 04:25 Metamyelocytes # 0.5 K/mm3 06/08/21 04:25 Myelocytes # 0.3 K/mm3 06/08/21 04:25 Promyelocytes # 0.0 K/mm3 06/08/21 04:25 Blast Cells # 0.0 K/mm3 06/08/21 04:25 WBC Morphology Not Reportable 06/08/21 04:25 Hypersegmented Neuts Not Reportable 06/08/21 04:25 Hyposegmented Neuts Not Reportable 06/08/21 04:25 Hypogranular Neuts Not Reportable 06/08/21 04:25 Smudge Cells Not Reportable 06/08/21 04:25 Toxic Granulation Not Reportable 06/08/21 04:25 Toxic Vacuolation Not Reportable 06/08/21 04:25 Dohle Bodies Not Reportable 06/08/21 04:25 Pelger-Huet Anomaly Not Reportable 06/08/21 04:25 Peter Rods Not Reportable 06/08/21 04:25 Platelet Estimate Consistent w auto 06/08/21 04:25 Clumped Platelets Not Reportable 06/08/21 04:25 Plt Clumps, EDTA Not Reportable 06/08/21 04:25 Large Platelets Not Reportable 06/08/21 04:25 Giant Platelets Not Reportable 06/08/21 04:25 Platelet Satelliting Not Reportable 06/08/21 04:25 Plt Morphology Comment Not Reportable 06/08/21 04:25 RBC Morphology Not Reportable 06/08/21 04:25 Dimorphic RBCs Not Reportable 06/08/21 04:25 Polychromasia Not Reportable 06/08/21 04:25 Hypochromasia Not Reportable 06/08/21 04:25 Poikilocytosis Not Reportable 06/08/21 04:25 Anisocytosis Not Reportable 06/08/21 04:25 Microcytosis Not Reportable 06/08/21 04:25 Macrocytosis Not Reportable 06/08/21 04:25 Spherocytes Not Reportable 06/08/21 04:25 Pappenheimer Bodies Not Reportable 06/08/21 04:25 Sickle Cells Not Reportable 06/08/21 04:25 Target Cells Not Reportable 06/08/21 04:25 Tear Drop Cells Not Reportable 06/08/21 04:25 Ovalocytes Not Reportable 06/08/21 04:25 Helmet Cells Not Reportable 06/08/21 04:25 [place] Bodies Not Reportable 06/08/21 04:25 [place] Rings Not Reportable 06/08/21 04:25 Lin Cells Not Reportable 06/08/21 04:25 Bite Cells Not Reportable 06/08/21 04:25 Crenated Cell Not Reportable 06/08/21 04:25 Elliptocytes Not Reportable 06/08/21 04:25 Acanthocytes (Spur) Not Reportable 06/08/21 04:25 Rouleaux Not Reportable 06/08/21 04:25 Hemoglobin C Crystals Not Reportable 06/08/21 04:25 Schistocytes Not Reportable 06/08/21 04:25 Malaria parasites Not Reportable 06/08/21 04:25 Shravan Bodies Not Reportable 06/08/21 04:25 Hem Pathologist Commnt No 06/08/21 04:25 PT 14.5 Sec. (12.2-14.9) 06/16/21 18:51 INR 1.08 (0.87-1.13) 06/16/21 18:51 APTT 64.1 Sec. (24.2-36.6) H* 06/16/21 18:51 D-Dimer > 82544 ng/mlDDU (0-234) H 05/25/21 09:21 Heparin Anti-Xa Level 1.53 U.I./ml (0.3-0.7) H 06/17/21 04:19 ABG pH 7.471 (7.320-7.450) H 06/15/21 10:19 POC ABG pCO2 40.4 mmHg (32.0-48.0) 06/15/21 10:19 ABG pCO2 30.3 mm Hg 05/29/21 05:28 POC ABG pO2 90.1 mmHg (83-108) 06/15/21 10:19 ABG pO2 96.2 mm Hg (80.0-90.0) H 05/29/21 05:28 POC ABG HCO3 28.8 06/15/21 10:19 ABG HCO3 24.0 mmol/L (20.0-26.0) 05/29/21 05:28 ABG O2 Saturation 97.4 (0-100) 06/15/21 10:19 ABG O2 Content 10.3 (0.0-44) 05/29/21 05:28 POC ABG Base Excess 4.8 06/15/21 10:19 ABG Base Excess 1.2 mmol/L (-2.0-3.0) 05/29/21 05:28 ABG Hemoglobin 8.6 (12.0-17.5) L 06/13/21 11:07 ABG Oxyhemoglobin 96.0 (94-98) 06/15/21 10:19 ABG Carboxyhemoglobin 1.6 % (0.0-5.0) 05/29/21 05:28 ABG Methemoglobin 0.3 (0.0-1.5) 06/13/21 11:07 ABG Sodium 144.0 mmol/L (136.0-145.0) 06/13/21 11:07 ABG Potassium 4.7 mmol/L (3.40-4.50) H 06/13/21 11:07 ABG Chloride 107.0 mmol/L (98-107) 06/13/21 11:07 ABG Glucose 277 mg/dL (65-95) H 06/13/21 11:07 Oxyhemoglobin 96.0 % (95.0-99.0) 05/29/21 05:28 Carboxyhemoglobin 1.5 (0.5-1.5) 06/15/21 10:19 FiO2 30 % 05/29/21 05:28 FiO2 % 40 06/15/21 10:19 Sodium 148 mmol/L (137-145) H 06/19/21 06:20 Potassium 4.2 mmol/L (3.6-5.0) 06/19/21 06:20 Chloride 109.4 mmol/L (98-107) H 06/19/21 06:20 Carbon Dioxide 27 mmol/L (22-30) 06/19/21 06:20 Anion Gap 16 mmol/L 06/19/21 06:20 BUN 26 mg/dL (7-17) H 06/19/21 06:20 Creatinine 1.0 mg/dL (0.6-1.2) 06/19/21 06:20 Estimated GFR > 60 ml/min 06/19/21 06:20 BUN/Creatinine Ratio 26 % 06/19/21 06:20 Glucose 109 mg/dL (65-100) H 06/19/21 06:20 POC Glucose 178 mg/dL (70-105) H 06/19/21 17:21 Lactic Acid 2.30 mmol/L (0.7-2.0) H* 05/26/21 05:49 Calcium 8.6 mg/dL (8.4-10.2) 06/19/21 06:20 Phosphorus 5.40 mg/dL (2.5-4.5) H 06/16/21 04:31 Magnesium 2.40 mg/dL (1.7-2.3) H 06/19/21 06:20 Ferritin 321.6 ng/mL (10.0-200.0) H 05/25/21 09:21 Total Bilirubin 0.50 mg/dL (0.1-1.2) 06/13/21 04:34 Direct Bilirubin < 0.2 mg/dL (0-0.2) 05/25/21 09:21 Indirect Bilirubin 0.2 mg/dL 05/25/21 09:21 AST 69 units/L (5-40) H 06/13/21 04:34 ALT 74 units/L (7-56) H 06/13/21 04:34 Alkaline Phosphatase 197 units/L (35-129) H 06/13/21 04:34 Lactate Dehydrogenase 445 units/L (91-180) H 05/25/21 09:21 Troponin T 0.226 ng/mL (0.00-0.029) H* D 05/25/21 15:19 C-Reactive Protein 28.90 mg/dL (0.00-1.30) H 06/07/21 14:52 NT-Pro-B Natriuret Pep 173.2 pg/mL (0-900) 05/25/21 09: Total Protein 7.5 g/dL (6.3-8.2) 06/13/21 04:34 Albumin 3.0 g/dL (3.9-5) L 06/13/21 04:34 Albumin/Globulin Ratio 0.7 % 06/13/21 04:34 Triglycerides 124 mg/dL (2-149) 05/30/21 11:19 Cholesterol 198 mg/dL (50-199) 05/25/21 15:19 LDL Cholesterol Direct 80 mg/dL (50-130) 05/25/21 15:19 HDL Cholesterol 64 mg/dL (40-59) H 05/25/21 15:19 Cholesterol/HDL Ratio 3.09 % 05/25/21 15:19 Procalcitonin 0.36 ng/mL (<0.15) 06/07/21 14:52 Arterial Blood Glucose 277 mg/dL (65-95) H 06/13/21 11:07 Arterial Blood Ionized Calcium 4.6 mg/dL (4.6-5.3) 06/02/21 04:13 Urine Color Yellow (Yellow) 06/15/21 Unknown Urine Turbidity Slightly-cloudy (Clear) 06/15/21 Unknown Urine pH 6.0 (5.0-7.0) 06/15/21 Unknown Ur Specific [place] 1.013 (1.003-1.030) 06/15/21 Unknown Urine Protein <15 mg/dl mg/dL (Negative) 06/15/21 Unknown Urine Glucose (UA) Neg mg/dL (Negative) 06/15/21 Unknown Urine Ketones Neg mg/dL (Negative) 06/15/21 Unknown Urine Blood Mod (Negative) 06/15/21 Unknown Urine Nitrite Neg (Negative) 06/15/21 Unknown Ur Reducing Substances Not Reportable 06/15/21 Unknown Urine Bilirubin Neg (Negative) 06/15/21 Unknown Urine Ictotest Not Reportable 06/15/21 Unknown Urine Urobilinogen < 2.0 mg/dL (<2.0) 06/15/21 Unknown Ur Leukocyte Esterase Mod (Negative) 06/15/21 Unknown Urine WBC (Auto) 3.0 /HPF (0.0-6.0) 06/15/21 Unknown Urine RBC (Auto) 3.0 /HPF (0.0-6.0) 06/15/21 Unknown U Epithel Cells (Auto) 2.0 /HPF (0-13.0) 06/15/21 Unknown Urine Bacteria (Auto) 1+ /HPF (Negative) 06/15/21 Unknown Urine Mucus Few /HPF 06/15/21 Unknown Urine Yeast (Budding) Few /HPF 06/15/21 Unknown Urine Osmolality 430 Mosm/kg 06/15/21 Unknown Urine Creatinine 74.7 mg/dL (0.1-20.0) H 06/15/21 Unknown Urine Sodium 14 mmol/L 06/15/21 Unknown Coronavirus (PCR) Negative (Negative) 05/30/21 08:15 Blood Type O POSITIVE 06/15/21 08:00 Antibody Screen Negative 06/15/21 08:00 Microbiology: Microbiology 06/15/21 08:07 Tracheal Aspirate Sputum Culture - Final Escherichia Coli 06/15/21 07:56 Peripheral/Venous Blood Culture - Preliminary NO GROWTH AFTER 4 DAYS 06/15/21 07:56 Peripheral/Venous Blood Culture - Preliminary NO GROWTH AFTER 4 DAYS Tan/IV: Voiding Method External Female Catheter Active Medications - Current Medications Current Medications: Generic Name Dose Route Start Last Admin Trade Name Freq PRN Reason Stop Dose Admin Acetaminophen 650 mg 05/25/21 13:48 05/28/21 04:14 Acetaminophen 325 Mg Tab PO 650 mg Q6H PRN Administration Pain MILD(1-3)/Fever >100.5/SOTOMAYOR Lipase/Protease/Amylase 1 each 05/26/21 10:00 Lipase 10,500/Protease 25,000/Amylase 43,750 (Units) Dr Munguia FEEDTUBE PRN PRN For Clogged Feeding Tube Apixaban 5 mg 06/16/21 22:00 06/19/21 09:43 Apixaban 5 Mg Tab PO 5 mg Q12HR ABDIRAHMAN Administration Protocol Bisacodyl 10 mg 06/08/21 10:00 Bisacodyl 10 Mg Rect Supp [place] QDAY PRN Constipation Dextrose 50 ml 05/28/21 14:28 Dextrose 50% In Water (25gm) 50 Ml Syringe IV Q30MIN PRN Hypoglycemia Protocol Docusate Sodium 100 mg 06/08/21 10:00 06/19/21 09:42 Docusate Sodium 100 Mg/10 Ml Oral Liqd PO 100 mg BID ABDIRAHMAN Administration Doxazosin Mesylate 2 mg 06/01/21 12:00 06/19/21 09:43 Doxazosin 1 Mg Tab PO 2 mg BID ABDIRAHMAN Administration Famotidine 20 mg 05/29/21 10:00 06/19/21 09:42 Famotidine 20 Mg Tab FEEDTUBE 20 mg BID ABDIRAHMAN Administration Hydralazine HCl 10 mg 06/01/21 11:43 06/07/21 17:23 Hydralazine 20 Mg/1 Ml Inj IV 10 mg Q4HR PRN Administration SBP >160 Hydralazine HCl 50 mg 06/03/21 22:00 06/19/21 17:06 Hydralazine 25 Mg Tab PO 50 mg Q8HR ABDIRAHMAN Administration Hydrophilic Ointment 1 applic 05/25/21 19:04 Lip Therapy Vaseline TP Q2HR PRN Dry Lips Cefepime HCl 2 gm in 100 mls @ 200 mls/hr 06/17/21 16:00 06/19/21 17:11 Cefepime/Ns 2 Gm/100 Ml IV 200 mls/hr Q12H ABDIRAHMAN Administration Insulin Glargine 30 units 06/15/21 22:00 06/18/21 21:55 Insulin Glargine 100 Units/Ml SUB-Q 30 units QHS ABDIRAHMAN Administration Insulin Human Lispro 0 unit 05/29/21 12:00 06/19/21 17:29 Insulin Lispro 100 Unit/Ml SUB-Q 3 unit Q6HR ABDIRAHMAN Administration Protocol Labetalol HCl 300 mg 06/03/21 13:40 06/19/21 09:42 Labetalol 100 Mg Tab PO 300 mg BID ABDIRAHMAN Administration Levetiracetam 250 mg 06/01/21 22:00 06/19/21 09:42 Levetiracetam 500 Mg/5 Ml Oral Liqd FEEDTUBE 250 mg Q12HR ABDIRAHMAN Administration Multi-Ingred Cream/Lotion/Oil/Oint 1 applic 05/25/21 19:04 Mineral Oil/Petrolatum, White Ophth Oint 3.5 Gm OU Q4HR PRN Dry Eye(s) Polyethylene Glycol 17 gm 06/05/21 11:00 06/19/21 10:00 Polyethylene Glycol 3350 17 Gm Powder PO 17 gm QDAY ABDIRAHMAN Administration Scopolamine 1 each 06/20/21 10:00 Scopolamine Transdermal Patch 72 Hr TD Q3D ABDIRAHMAN Senna/Docusate Sodium 1 tab 05/25/21 22:00 06/19/21 10:00 Sennosides/Docusate Sodium 8.6/50 Mg Tab FEEDTUBE 1 tab BID ABDIRAHMAN Administration Simple Syrup 15 ml 05/26/21 10:00 Simple Syrup 15 Ml FEEDTUBE PRN PRN Hypoglycemia Simple Syrup 30 ml 05/26/21 10:00 Simple Syrup 15 Ml FEEDTUBE PRN PRN Hypoglycemia Sodium Bicarbonate 325 mg 05/26/21 10:00 Sodium Bicarbonate 325 Mg Tab FEEDTUBE PRN PRN For Clogged Feeding Tube Sodium Chloride 10 ml 05/25/21 22:00 06/19/21 09:44 Sodium Chloride 0.9% 10 Ml Flush Syringe IV 10 ml BID ABDIRAHMAN Administration Sodium Chloride 10 ml 05/25/21 13:48 06/04/21 03:57 Sodium Chloride 0.9% 10 Ml Flush Syringe IV 10 ml PRN PRN Administration LINE FLUSH Valsartan 160 mg 06/11/21 10:00 06/19/21 09:43 Valsartan 160mg Tab PO 160 mg BID ABDIRAHMAN Administration Nutrition/Malnutrition Assess - Dietary Evaluation Nutrition/Malnutrition Findings: Nutrition Notes Start: 05/26/21 09:00 Freq: Status: Active Protocol: Document 06/19/21 15:49 GB (Rec: 06/19/21 15:57 GB [id number]) Nutrition Notes Initial or Follow up Reassessment Current Diagnosis COPD,Diabetes,Sepsis, Hypertension,Respiratory Failure Other Pertinent Diagnosis cardiac arrest, seizure disorder, (06/12: Trach/PEG) Current Diet NPO, Tube feeding glucerna 1.2 @50 Labs/Tests 06/19: Na 148, BUN 26, glucose 109, Mg 2.4 Pertinent Medications reviewed Height 5 ft 4 in Weight 63 kg [place] Body Weight (kg) 54.54 BMI 23.8 Weight change and time frame -6.6% since admission No new weights after 05/30 Weight Status Appropriate Subjective/Other Information 10/4: Trach/PEG 06/12: TF formula changed to glucerna 1.2 r/t altered labs and now with trach/peg Last BM 06/17 06/19: waiting for placement SNF vs Home w/home health depending on T-piece tolerance Percent of energy/protein needs met: TF goal rate meets 75% or greater of estimated energy needs Burn Absent Trauma Absent GI Symptoms None Difficulty In Swallowing Food Allergy No Current % PO Other Minimum of two criteria No #1 Nutrition Diagnosis Inadequate oral intake Comments: 06/02: On vent. TF continues. 06/07: Ventilation continues, TF continues. 06/13: Trach/PEG on 06/12, change formula to glucerna 1.2 06/19: T/P continues, TF glucerna 1.2 @50ml/hr Etiology ARF As Evidenced by Signs and Symptoms pt on vent and unable to consume PO Diagnosis Progress(for reassessment Continues documentation) Is patient on ventilator? Yes Is Patient Ambulatory and/or Out of Bed No REE-([facility]-confined to bed) 1385.676 Kcal/Kg value to use for calculation 23 Approximate Energy Requirements Using 1449 kcal/Kg Calculation Used for Recommendations Kcal/kg Additional Notes Protein: (1-1.5g/kg @63kg) 63- 95g Fluid: 1 ml/kcal or per MD Nutrition Intervention Change Diet Order: Continue NPO Nutrition Support: Glucerna 1.2 at 50 ml/hr Flush 75 ml q4h 06/07: continues 06/13: Trach/PEG on 06/12, change formula to glucerna 1.2 06/19: Glucerna 1.2 at 50ml/hr continues Kcal 1,440 Protein (gm) 72 Goal #1 Meet 75% or greater of protein and energy needs via TF 06/13: TF at goal meets 100% estimated energy needs: met, continues 06/19: met continues Goal #2 Change TF formula. Complete current vital 1.2 bottle, change to glucerna 1.2 r/t DM and related lab results 06/19: met, resolved Follow-Up By: 06/26/21 Additional Comments f/u: TF tolerance, new weights available
[2021-06-19] MEDS: INSULIN GLARGINE 100 UNITS/ML SUB-Q SCH (21:49)
[2021-06-20] MEDS: INSULIN LISPRO 100 UNIT/ML SUB-Q SCH ×4 (00:19→18:03)
[2021-06-20] MEDS: FREE WATER PO SCH ×7 (00:28→22:13)
[2021-06-20 05:20] LABS: Hematocrit 22.9 % (30.3-42.9); Hemoglobin 7.7 gm/dl (10.1-14.3); Mean Corpuscular HGB Conc 34 % (30-34); Mean Corpuscular Volume 101 fl (79-97); Platelet Count 291 K/mm3 (140-440); Red Blood Count 2.26 M/mm3 (3.65-5.03); Red Cell Distribution Width 14.7 % (13.2-15.2)
[2021-06-20] MEDS: CEFEPIME/NS 2 GM/100 ML 2 GM/100 ML BAG IV SCH (05:24)
[2021-06-20] MEDS: hydrALAZINE 25 MG TAB PO SCH ×3 (05:25→22:04)
[2021-06-20] MEDS: cefTRIAXone/NS 2 GM/100 ML 2 GM/100 ML BAG IV SCH (09:43)
[2021-06-20] MEDS: VALSARTAN 160MG TAB PO SCH ×2 (09:46→22:02)
[2021-06-20] MEDS: DOCUSATE SODIUM 100 MG/10 ML ORAL LIQD PO SCH ×2 (09:47→22:01)
[2021-06-20] MEDS: SENNOSIDES/DOCUSATE SODIUM 8.6/50 MG TAB FEEDTUBE SCH ×2 (09:47→22:02)
[2021-06-20] MEDS: DOXAZOSIN 1 MG TAB PO SCH ×2 (09:47→22:05)
[2021-06-20] MEDS: APIXABAN 5 MG TAB PO SCH ×2 (09:47→22:04)
[2021-06-20] MEDS: SCOPOLAMINE TRANSDERMAL PATCH 72 HR TD SCH (09:48)
[2021-06-20] MEDS: levETIRAcetam 500 MG/5 ML ORAL LIQD FEEDTUBE SCH ×2 (09:49→22:00)
[2021-06-20] MEDS: POLYETHYLENE GLYCOL 3350 17 GM POWDER PO SCH (09:49)
[2021-06-20] MEDS: FAMOTIDINE 20 MG TAB FEEDTUBE SCH ×2 (09:50→22:05)
[2021-06-20 14:06] LABS: Calcium 8.4 mg/dL (8.4-10.2)
--- NOTE | 2021-06-20 14:23 | Progress Note ---
Assessment and Plan Acute hypoxemic respiratory failure on MVS Cardiopulmonary arrest wtih ROSC Seizure disorder E. Coli Pneumonia Sepsis Toxic metabolic encephalopathy, possible anoxia Atrial fibrillation with RVR Metabolic acidosis Bilateral lower lobe infiltrates - de-escalated to Rocephin - ID consult placed - follow repeat CXR in am; ? aspiration PNA post recent emesis - continue Mucomyst nebs - continue t-piece trials as tolerated - continue anticoagulation with Eliquis - continue care as below otherwise; - LTAC evaluation is appropriate - continue scopolamine patch for secretions - azotemia per nephrology team (non-oliguric) - daily SAT and SBT assessment as tolerated - continue to wean supplemental oxygen for target O2 sat's > 90% acutely - VAP bundle addressed - continue lung protective strategies - continue bronchodilators with pulmonary hygiene per RT - wean per pulmonary driven protocols otherwise - continue accuchecks with glycemic control per SSI (While critically ill target blood glucose of 140-180 mg/dL; avoid hypoglycemia) - sedation prn for target RASS 0 to -1 - avoid nephrotoxins, renally dose all medications - continue scopolamine for secretion control - continue Keppra as AED - continue to avoid benzodiazepine's, reduce the possibility of delirium - AB's per ID rec's - prn analgesia per CPOT score - Maintenance of sleep-wake cycle, avoid delirium - continue enteral nutritional support at goal rate as tolerated - G.I. & VTE prophylaxis - PT/OT/ROM exercises - continue mobility protocols for pressure ulcer prophylaxis - Monitor hemodynamics closely - continue other care per attending / other consultants - discharge planning ongoing concurrently COVID SPECIFIC INTERVENTIONS - COVID-19 PCR negative .... Re-evaluate in am & prn CONDITION: CRITICAL PROGNOSIS: GUARDED CODE STATUS: FULL CODE The high probability of a clinically significant, sudden or life-threatening deterioration of the [respiratory, cardiovascular, renal & neurologic] system(s) required my full and direct attention, intervention and personal management. The aggregate critical care time was [32] minutes without overlap. Time includes spent on; [x] Data Review and interpretation [x] Patient assessment and monitoring of vital signs [x] Documentation [x] Medication orders and management Subjective Date of service: 06/20/21 Principal diagnosis: Ac hypoxemic resp failure; Cardiac arrest; Seizures; Sepsis; AMS; A-Fib RVR Interval history: Patient is seen today for: Acute hypoxemic respiratory failure; Cardiac arrest wtih ROSC; Seizure disorder; Sepsis; AMS; A-Fib with RVR Seen and examined at bedside; 24hour events reviewed; nursing and respiratory care staff consulted; no adverse overnight events reported to me; resting in bed; rested on MVS; E. Coli sensitive to Rocephin; no high grade fevers; no emesis or overt aspiration Objective Vital Signs - 12hr 06/20/21 06/20/21 06/20/21 02:31 03:00 03:25 Temperature Pulse Rate 85 89 Pulse Rate [ From Monitor] Respiratory 16 13 Rate Blood Pressure 149/64 144/64 144/64 O2 Sat by Pulse 100 100 100 Oximetry O2 Sat by Pulse Oximetry [ Assessment] 06/20/21 06/20/21 06/20/21 03:31 03:37 04:00 Temperature 99.4 F Pulse Rate 91 H 86 Pulse Rate [ 86 From Monitor] Respiratory 22 20 Rate Blood Pressure 144/64 O2 Sat by Pulse 100 100 Oximetry O2 Sat by Pulse Oximetry [ Assessment] 06/20/21 06/20/21 06/20/21 04:01 04:31 05:00 Temperature Pulse Rate 87 82 88 Pulse Rate [ From Monitor] Respiratory 17 21 16 Rate Blood Pressure 144/64 132/50 135/52 O2 Sat by Pulse 100 100 100 Oximetry O2 Sat by Pulse Oximetry [ Assessment] 06/20/21 06/20/21 06/20/21 05:25 05:31 06:00 Temperature Pulse Rate 84 82 88 Pulse Rate [ From Monitor] Respiratory 16 20 Rate Blood Pressure 135/52 135/52 141/54 O2 Sat by Pulse 100 100 Oximetry O2 Sat by Pulse Oximetry [ Assessment] 06/20/21 06/20/21 06/20/21 06:31 07:00 07:27 Temperature Pulse Rate 84 86 Pulse Rate [ From Monitor] Respiratory 15 16 Rate Blood Pressure 141/54 127/51 127/51 O2 Sat by Pulse 100 100 100 Oximetry O2 Sat by Pulse Oximetry [ Assessment] 06/20/21 06/20/21 06/20/21 07:31 07:41 07:46 Temperature 100.2 F H Pulse Rate 87 89 Pulse Rate [ From Monitor] Respiratory 15 Rate Blood Pressure 127/51 127/51 O2 Sat by Pulse 100 100 Oximetry O2 Sat by Pulse 100 Oximetry [ Assessment] 06/20/21 06/20/2121 08:00 08:15 08:31 Temperature Pulse Rate 88 87 Pulse Rate [ From Monitor] Respiratory 22 29 H Rate Blood Pressure 136/53 136/53 O2 Sat by Pulse 100 100 100 Oximetry O2 Sat by Pulse Oximetry [ Assessment] 06/20/21 06/20/21 06/20/21 09:00 09:31 09:46 Temperature Pulse Rate 87 87 87 Pulse Rate [ From Monitor] Respiratory 27 H 27 H Rate Blood Pressure 139/53 139/53 139/53 O2 Sat by Pulse 100 100 Oximetry O2 Sat by Pulse Oximetry [ Assessment] 06/20/21 06/20/21 06/20/21 09:47 10:00 10:31 Temperature Pulse Rate 89 91 H 87 Pulse Rate [ From Monitor] Respiratory 31 H 28 H Rate Blood Pressure 139/53 145/57 145/57 O2 Sat by Pulse 100 100 Oximetry O2 Sat by Pulse Oximetry [ Assessment] 06/20/21 06/20/21 06/20/21 11:00 11:56 11:58 Temperature 97.5 F L Pulse Rate 84 88 Pulse Rate [ From Monitor] Respiratory 29 H Rate Blood Pressure 129/55 126/52 O2 Sat by Pulse 100 100 Oximetry O2 Sat by Pulse Oximetry [ Assessment] 06/20/21 14:04 Temperature Pulse Rate 82 Pulse Rate [ From Monitor] Respiratory Rate Blood Pressure 137/55 O2 Sat by Pulse Oximetry O2 Sat by Pulse Oximetry [ Assessment] Constitutional: appears uncomfortable, other (elderly female with mildly increased respiratory effort at rest on MVS) Eyes: non-icteric ENT: oropharynx moist, other (+ midline tracheostomy with mild secretions) Neck: supple, no lymphadenopathy Effort: mildly labored Ascultation: Bilateral: diminished breath sounds, rhonchi (scant) Percussion: Bilateral: not dull Cardiovascular: regular rate and rhythm, other (S1,S2) Gastrointestinal: normoactive bowel sounds, soft, non-tender, non-distended (protuberant), other (+ PEG tube) Integumentary: normal Extremities: no cyanosis, pulses normal, no ischemia or petechiae, other (Right femoral CVL) Neurologic: pupils equal and round, unable to assess, other (encephalopathic) Psychiatric: other (unable to assess) CBC and BMP: 06/21/21 08:10 06/21/21 04:07 ABG, PT/INR, D-dimer: ABG ABG pH 7.471 (7.320-7.450) H 06/15/21 10:19 POC ABG pCO2 40.4 mmHg (32.0-48.0) 06/15/21 10:19 ABG pCO2 30.3 mm Hg 05/29/21 05:28 POC ABG pO2 90.1 mmHg (83-108) 06/15/21 10:19 ABG pO2 96.2 mm Hg (80.0-90.0) H 05/29/21 05:28 POC ABG HCO3 28.8 06/15/21 10:19 ABG O2 Saturation 97.4 (0-100) 06/15/21 10:19 PT/INR, D-dimer PT 14.5 Sec. (12.2-14.9) 06/16/21 18:51 INR 1.08 (0.87-1.13) 06/16/21 18:51 D-Dimer > 38045 ng/mlDDU (0-234) H 05/25/21 09:21 Abnormal lab findings: Abnormal Labs 05/25/21 05/25/21 05/25/21 09:07 09:21 09:21 WBC 17.1 H RBC Hgb Hct MCV 106 H MCH 33 H MCHC RDW 15.6 H [place] % (Auto) [place] # (Auto) Seg Neutrophils % Seg Neuts % (Manual) Lymphocytes % (Manual) Monocytes % (Manual) Seg Neutrophils # Seg Neutrophils # Man 10.1 H Lymphocytes # (Manual) 5.6 H Monocytes # (Manual) PT 15.0 H APTT 44.3 H D-Dimer > 57308 H Heparin Anti-Xa Level ABG pH 7.116 L POC ABG pCO2 POC ABG pO2 ABG pO2 ABG Hemoglobin ABG Oxyhemoglobin 93.7 L ABG Sodium ABG Potassium ABG Chloride ABG Glucose 395 H Carboxyhemoglobin Sodium Potassium Chloride Carbon Dioxide BUN Creatinine Glucose POC Glucose Lactic Acid Calcium Phosphorus Magnesium Ferritin AST ALT Alkaline Phosphatase Lactate Dehydrogenase Troponin T C-Reactive Protein Total Protein Albumin HDL Cholesterol Arterial Blood Glucose 395 H Arterial Blood Ionized Calcium 4.4 L Urine WBC (Auto) Urine Creatinine 05/25/21 05/25/21 05/25/21 09:21 09:21 09:21 WBC RBC Hgb Hct MCV MCH MCHC RDW [place] % (Auto) [place] # (Auto) Seg Neutrophils % Seg Neuts % (Manual) Lymphocytes % (Manual) Monocytes % (Manual) Seg Neutrophils # Seg Neutrophils # Man Lymphocytes # (Manual) Monocytes # (Manual) PT APTT D-Dimer Heparin Anti-Xa Level ABG pH POC ABG pCO2 POC ABG pO2 ABG pO2 ABG Hemoglobin ABG Oxyhemoglobin ABG Sodium ABG Potassium ABG Chloride ABG Glucose Carboxyhemoglobin Sodium Potassium Chloride Carbon Dioxide 10 L BUN Creatinine Glucose 423 H 424 H POC Glucose Lactic Acid Calcium 8.2 L Phosphorus Magnesium Ferritin 321.6 H AST 162 H ALT 119 H Alkaline Phosphatase Lactate Dehydrogenase 445 H Troponin T C-Reactive Protein Total Protein 5.6 L Albumin 3.2 L HDL Cholesterol Arterial Blood Glucose Arterial Blood Ionized Calcium Urine WBC (Auto) Urine Creatinine 05/25/21 05/25/21 05/25/21 09:35 10:42 11:12 WBC RBC Hgb Hct MCV MCH MCHC RDW [place] % (Auto) [place] # (Auto) Seg Neutrophils % Seg Neuts % (Manual) Lymphocytes % (Manual) Monocytes % (Manual) Seg Neutrophils # Seg Neutrophils # Man Lymphocytes # (Manual) Monocytes # (Manual) PT APTT D-Dimer Heparin Anti-Xa Level ABG pH POC ABG pCO2 POC ABG pO2 ABG pO2 ABG Hemoglobin ABG Oxyhemoglobin ABG Sodium ABG Potassium ABG Chloride ABG Glucose Carboxyhemoglobin Sodium Potassium Chloride Carbon Dioxide BUN Creatinine Glucose POC Glucose Lactic Acid 16.70 H* 7.70 H* Calcium Phosphorus Magnesium Ferritin AST ALT Alkaline Phosphatase Lactate Dehydrogenase Troponin T C-Reactive Protein Total Protein Albumin HDL Cholesterol Arterial Blood Glucose Arterial Blood Ionized Calcium Urine WBC (Auto) 11.0 H Urine Creatinine 05/25/21 05/25/21 05/25/21 14:07 15:19 19:04 WBC RBC Hgb Hct MCV MCH MCHC RDW [place] % (Auto) [place] # (Auto) Seg Neutrophils % Seg Neuts % (Manual) Lymphocytes % (Manual) Monocytes % (Manual) Seg Neutrophils # Seg Neutrophils # Man Lymphocytes # (Manual) Monocytes # (Manual) PT APTT D-Dimer Heparin Anti-Xa Level ABG pH POC ABG pCO2 POC ABG pO2 172.2 H ABG pO2 ABG Hemoglobin ABG Oxyhemoglobin 98.7 H ABG Sodium 135.7 L ABG Potassium ABG Chloride ABG Glucose 255 H Carboxyhemoglobin 0.3 L Sodium Potassium Chloride Carbon Dioxide BUN Creatinine Glucose POC Glucose Lactic Acid 3.90 H* Calcium Phosphorus Magnesium Ferritin AST ALT Alkaline Phosphatase Lactate Dehydrogenase Troponin T 0.226 H* D C-Reactive Protein Total Protein Albumin HDL Cholesterol 64 H Arterial Blood Glucose 255 H Arterial Blood Ionized Calcium 3.8 L Urine WBC (Auto) Urine Creatinine 05/25/21 05/25/21 05/26/21 21:16 21:16 04:00 WBC RBC Hgb Hct MCV MCH MCHC RDW [place] % (Auto) [place] # (Auto) Seg Neutrophils % Seg Neuts % (Manual) Lymphocytes % (Manual) Monocytes % (Manual) Seg Neutrophils # Seg Neutrophils # Man Lymphocytes # (Manual) Monocytes # (Manual) PT APTT D-Dimer Heparin Anti-Xa Level 1.19 H ABG pH 7.547 H POC ABG pCO2 POC ABG pO2 ABG pO2 ABG Hemoglobin 11.9 L ABG Oxyhemoglobin ABG Sodium 133.2 L ABG Potassium 3.1 L ABG Chloride ABG Glucose 243 H Carboxyhemoglobin 0.3 L Sodium Potassium Chloride Carbon Dioxide BUN Creatinine Glucose POC Glucose Lactic Acid 2.50 H* Calcium Phosphorus Magnesium Ferritin AST ALT Alkaline Phosphatase Lactate Dehydrogenase Troponin T C-Reactive Protein Total Protein Albumin HDL Cholesterol Arterial Blood Glucose 243 H Arterial Blood Ionized Calcium Urine WBC (Auto) Urine Creatinine 05/26/21 05/26/21 05/26/21 05:49 05:49 17:33 WBC RBC Hgb Hct MCV MCH MCHC RDW [place] % (Auto) [place] # (Auto) Seg Neutrophils % Seg Neuts % (Manual) Lymphocytes % (Manual) Monocytes % (Manual) Seg Neutrophils # Seg Neutrophils # Man Lymphocytes # (Manual) Monocytes # (Manual) PT APTT D-Dimer Heparin Anti-Xa Level ABG pH POC ABG pCO2 POC ABG pO2 ABG pO2 ABG Hemoglobin ABG Oxyhemoglobin ABG Sodium ABG Potassium ABG Chloride ABG Glucose Carboxyhemoglobin Sodium Potassium Chloride Carbon Dioxide BUN Creatinine Glucose 226 H POC Glucose 156 H Lactic Acid 2.30 H* Calcium 7.2 L Phosphorus Magnesium Ferritin AST 111 H ALT 97 H Alkaline Phosphatase Lactate Dehydrogenase Troponin T C-Reactive Protein Total Protein 5.4 L Albumin 3.3 L HDL Cholesterol Arterial Blood Glucose Arterial Blood Ionized Calcium Urine WBC (Auto) Urine Creatinine 05/27/21 05/27/2105/27/21 02:11 02:11 02:11 WBC 14.3 H RBC 3.27 L Hgb Hct MCV 99 H MCH 33 H MCHC RDW 15.3 H [place] % (Auto) [place] # (Auto) 1.0 H Seg Neutrophils % Seg Neuts % (Manual) Lymphocytes % (Manual) Monocytes % (Manual) Seg Neutrophils # 10.0 H Seg Neutrophils # Man Lymphocytes # (Manual) Monocytes # (Manual) PT APTT D-Dimer Heparin Anti-Xa Level 0.80 H ABG pH POC ABG pCO2 POC ABG pO2 ABG pO2 ABG Hemoglobin ABG Oxyhemoglobin ABG Sodium ABG Potassium ABG Chloride ABG Glucose Carboxyhemoglobin Sodium Potassium 2.9 L* D Chloride Carbon Dioxide 31 H BUN 6 L Creatinine Glucose 215 H POC Glucose Lactic Acid Calcium 8.1 L Phosphorus Magnesium Ferritin AST ALT Alkaline Phosphatase Lactate Dehydrogenase Troponin T C-Reactive Protein Total Protein Albumin HDL Cholesterol Arterial Blood Glucose Arterial Blood Ionized Calcium Urine WBC (Auto) Urine Creatinine 05/27/21 05/27/21 05/27/21 11:24 12:49 18:06 WBC RBC Hgb Hct MCV MCH MCHC RDW [place] % (Auto) [place] # (Auto) Seg Neutrophils % Seg Neuts % (Manual) Lymphocytes % (Manual) Monocytes % (Manual) Seg Neutrophils # Seg Neutrophils # Man Lymphocytes # (Manual) Monocytes # (Manual) PT APTT D-Dimer Heparin Anti-Xa Level ABG pH POC ABG pCO2 POC ABG pO2 ABG pO2 ABG Hemoglobin ABG Oxyhemoglobin ABG Sodium ABG Potassium ABG Chloride ABG Glucose Carboxyhemoglobin Sodium Potassium Chloride Carbon Dioxide BUN Creatinine Glucose POC Glucose 151 H 165 H 137 H Lactic Acid Calcium Phosphorus Magnesium Ferritin AST ALT Alkaline Phosphatase Lactate Dehydrogenase Troponin T C-Reactive Protein Total Protein Albumin HDL Cholesterol Arterial Blood Glucose Arterial Blood Ionized Calcium Urine WBC (Auto) Urine Creatinine 05/28/21 05/28/21 05/28/21 04:00 04:00 06:02 WBC 13.5 H RBC 3.05 L Hgb Hct MCV 100 H MCH 34 H MCHC RDW [place] % (Auto) [place] # (Auto) 0.9 H Seg Neutrophils % 78.2 H Seg Neuts % (Manual) Lymphocytes % (Manual) Monocytes % (Manual) Seg Neutrophils # 10.6 H Seg Neutrophils # Man Lymphocytes # (Manual) Monocytes # (Manual) PT APTT D-Dimer Heparin Anti-Xa Level ABG pH 7.507 H POC ABG pCO2 POC ABG pO2 ABG pO2 ABG Hemoglobin 10.6 L ABG Oxyhemoglobin ABG Sodium 129.4 L ABG Potassium ABG Chloride ABG Glucose 243 H Carboxyhemoglobin 0.2 L Sodium 136 L D Potassium Chloride Carbon Dioxide BUN Creatinine Glucose 215 H POC Glucose Lactic Acid Calcium Phosphorus Magnesium Ferritin AST ALT Alkaline Phosphatase Lactate Dehydrogenase Troponin T C-Reactive Protein Total Protein Albumin HDL Cholesterol Arterial Blood Glucose 243 H Arterial Blood Ionized Calcium 4.1 L Urine WBC (Auto) Urine Creatinine 05/28/21 05/28/21 05/29/21 11:27 23:02 04:30 WBC RBC Hgb 9.3 L Hct 26.7 L MCV MCH MCHC RDW [place] % (Auto) [place] # (Auto) Seg Neutrophils % Seg Neuts % (Manual) Lymphocytes % (Manual) Monocytes % (Manual) Seg Neutrophils # Seg Neutrophils # Man Lymphocytes # (Manual) Monocytes # (Manual) PT APTT D-Dimer Heparin Anti-Xa Level ABG pH POC ABG pCO2 POC ABG pO2 ABG pO2 ABG Hemoglobin ABG Oxyhemoglobin ABG Sodium ABG Potassium ABG Chloride ABG Glucose Carboxyhemoglobin Sodium Potassium Chloride Carbon Dioxide BUN Creatinine Glucose POC Glucose 220 H 212 H Lactic Acid Calcium Phosphorus Magnesium Ferritin AST ALT Alkaline Phosphatase Lactate Dehydrogenase Troponin T C-Reactive Protein Total Protein Albumin HDL Cholesterol Arterial Blood Glucose Arterial Blood Ionized Calcium Urine WBC (Auto) Urine Creatinine 05/29/21 05/29/21 05/29/21 05:02 05:28 12:55 WBC RBC Hgb Hct MCV MCH MCHC RDW [place] % (Auto) [place] # (Auto) Seg Neutrophils % Seg Neuts % (Manual) Lymphocytes % (Manual) Monocytes % (Manual) Seg Neutrophils # Seg Neutrophils # Man Lymphocytes # (Manual) Monocytes # (Manual) PT APTT D-Dimer Heparin Anti-Xa Level ABG pH 7.516 H POC ABG pCO2 POC ABG pO2 ABG pO2 96.2 H ABG Hemoglobin 7.5 L ABG Oxyhemoglobin ABG Sodium ABG Potassium ABG Chloride ABG Glucose Carboxyhemoglobin Sodium Potassium Chloride Carbon Dioxide BUN Creatinine Glucose POC Glucose 197 H 251 H Lactic Acid Calcium Phosphorus Magnesium Ferritin AST ALT Alkaline Phosphatase Lactate Dehydrogenase Troponin T C-Reactive Protein Total Protein Albumin HDL Cholesterol Arterial Blood Glucose Arterial Blood Ionized Calcium Urine WBC (Auto) Urine Creatinine 05/29/21 05/29/21 05/30/21 18:23 23:31 04:10 WBC RBC Hgb Hct MCV MCH MCHC RDW [place] % (Auto) [place] # (Auto) Seg Neutrophils % Seg Neuts % (Manual) Lymphocytes % (Manual) Monocytes % (Manual) Seg Neutrophils # Seg Neutrophils # Man Lymphocytes # (Manual) Monocytes # (Manual) PT APTT D-Dimer Heparin Anti-Xa Level ABG pH 7.532 H POC ABG pCO2 30.0 L POC ABG pO2 78.5 L ABG pO2 ABG Hemoglobin 11.3 L ABG Oxyhemoglobin ABG Sodium 126.7 L ABG Potassium ABG Chloride 94.0 L ABG Glucose 270 H Carboxyhemoglobin 0.4 L Sodium Potassium Chloride Carbon Dioxide BUN Creatinine Glucose POC Glucose 236 H 252 H Lactic Acid Calcium Phosphorus Magnesium Ferritin AST ALT Alkaline Phosphatase Lactate Dehydrogenase Troponin T C-Reactive Protein Total Protein Albumin HDL Cholesterol Arterial Blood Glucose 270 H Arterial Blood Ionized Calcium 4.4 L Urine WBC (Auto) Urine Creatinine 05/30/21 05/30/21 05/30/21 05:06 06:23 11:15 WBC RBC Hgb Hct MCV MCH MCHC RDW [place] % (Auto) [place] # (Auto) Seg Neutrophils % Seg Neuts % (Manual) Lymphocytes % (Manual) Monocytes % (Manual) Seg Neutrophils # Seg Neutrophils # Man Lymphocytes # (Manual) Monocytes # (Manual) PT APTT D-Dimer Heparin Anti-Xa Level ABG pH POC ABG pCO2 POC ABG pO2 ABG pO2 ABG Hemoglobin ABG Oxyhemoglobin ABG Sodium ABG Potassium ABG Chloride ABG Glucose Carboxyhemoglobin Sodium 126 L D Potassium Chloride 91.9 L Carbon Dioxide 20 L D BUN Creatinine 0.4 L Glucose 274 H POC Glucose 242 H 346 H Lactic Acid Calcium Phosphorus Magnesium Ferritin AST ALT Alkaline Phosphatase Lactate Dehydrogenase Troponin T C-Reactive Protein Total Protein Albumin HDL Cholesterol Arterial Blood Glucose Arterial Blood Ionized Calcium Urine WBC (Auto) Urine Creatinine 05/30/21 05/30/21 05/30/21 11:19 11:19 11:19 WBC 18.9 H RBC 3.36 L Hgb Hct MCV 102 H MCH 33 H MCHC RDW 15.5 H [place] % (Auto) [place] # (Auto) Seg Neutrophils % Seg Neuts % (Manual) Lymphocytes % (Manual) Monocytes % (Manual) Seg Neutrophils # Seg Neutrophils # Man Lymphocytes # (Manual) Monocytes # (Manual) PT APTT D-Dimer Heparin Anti-Xa Level < 0.10 L ABG pH POC ABG pCO2 POC ABG pO2 ABG pO2 ABG Hemoglobin ABG Oxyhemoglobin ABG Sodium ABG Potassium ABG Chloride ABG Glucose Carboxyhemoglobin Sodium 124 L Potassium Chloride Carbon Dioxide BUN Creatinine Glucose POC Glucose Lactic Acid Calcium Phosphorus Magnesium Ferritin AST ALT Alkaline Phosphatase Lactate Dehydrogenase Troponin T C-Reactive Protein Total Protein Albumin HDL Cholesterol Arterial Blood Glucose Arterial Blood Ionized Calcium Urine WBC (Auto) Urine Creatinine 05/30/21 05/30/21 05/31/21 17:02 23:27 03:37 WBC RBC Hgb Hct MCV MCH MCHC RDW [place] % (Auto) [place] # (Auto) Seg Neutrophils % Seg Neuts % (Manual) Lymphocytes % (Manual) Monocytes % (Manual) Seg Neutrophils # Seg Neutrophils # Man Lymphocytes # (Manual) Monocytes # (Manual) PT APTT D-Dimer Heparin Anti-Xa Level ABG pH POC ABG pCO2 POC ABG pO2 ABG pO2 ABG Hemoglobin 11.6 L ABG Oxyhemoglobin ABG Sodium 130.0 L ABG Potassium ABG Chloride 95.0 L ABG Glucose 292 H Carboxyhemoglobin Sodium Potassium Chloride Carbon Dioxide BUN Creatinine Glucose POC Glucose 270 H 237 H Lactic Acid Calcium Phosphorus Magnesium Ferritin AST ALT Alkaline Phosphatase Lactate Dehydrogenase Troponin T C-Reactive Protein Total Protein Albumin HDL Cholesterol Arterial Blood Glucose 292 H Arterial Blood Ionized Calcium Urine WBC (Auto) Urine Creatinine 05/31/21 05/31/21 05/31/21 04:00 04:00 05:20 WBC 20.9 H RBC 3.13 L Hgb Hct MCV 99 H MCH 34 H MCHC RDW [place] % (Auto) [place] # (Auto) Seg Neutrophils % Seg Neuts % (Manual) 81.0 H Lymphocytes % (Manual) 8.0 L Monocytes % (Manual) 9.0 H Seg Neutrophils # Seg Neutrophils # Man 16.9 H Lymphocytes # (Manual) Monocytes # (Manual) 1.9 H PT APTT D-Dimer Heparin Anti-Xa Level ABG pH POC ABG pCO2 POC ABG pO2 ABG pO2 ABG Hemoglobin ABG Oxyhemoglobin ABG Sodium ABG Potassium ABG Chloride ABG Glucose Carboxyhemoglobin Sodium 133 L D Potassium Chloride 95.4 L Carbon Dioxide 21 L BUN 30 H Creatinine 0.5 L Glucose 305 H POC Glucose 269 H Lactic Acid Calcium Phosphorus Magnesium Ferritin AST ALT Alkaline Phosphatase Lactate Dehydrogenase Troponin T C-Reactive Protein Total Protein Albumin HDL Cholesterol Arterial Blood Glucose Arterial Blood Ionized Calcium Urine WBC (Auto) Urine Creatinine 05/31/21 05/31/21 05/31/21 11:40 18:16 23:25 WBC RBC Hgb Hct MCV MCH MCHC RDW [place] % (Auto) [place] # (Auto) Seg Neutrophils % Seg Neuts % (Manual) Lymphocytes % (Manual) Monocytes % (Manual) Seg Neutrophils # Seg Neutrophils # Man Lymphocytes # (Manual) Monocytes # (Manual) PT APTT D-Dimer Heparin Anti-Xa Level ABG pH POC ABG pCO2 POC ABG pO2 ABG pO2 ABG Hemoglobin ABG Oxyhemoglobin ABG Sodium ABG Potassium ABG Chloride ABG Glucose Carboxyhemoglobin Sodium Potassium Chloride Carbon Dioxide BUN Creatinine Glucose POC Glucose 364 H 250 H 231 H Lactic Acid Calcium Phosphorus Magnesium Ferritin AST ALT Alkaline Phosphatase Lactate Dehydrogenase Troponin T C-Reactive Protein Total Protein Albumin HDL Cholesterol Arterial Blood Glucose Arterial Blood Ionized Calcium Urine WBC (Auto) Urine Creatinine 06/01/21 06/01/21 06/01/21 04:03 04:58 04:58 WBC 20.7 H RBC 3.20 L Hgb Hct MCV 99 H MCH 34 H MCHC RDW [place] % (Auto) [place] # (Auto) Seg Neutrophils % Seg Neuts % (Manual) 82.0 H Lymphocytes % (Manual) 9.0 L Monocytes % (Manual) Seg Neutrophils # Seg Neutrophils # Man 17.0 H Lymphocytes # (Manual) Monocytes # (Manual) 1.4 H PT APTT D-Dimer Heparin Anti-Xa Level 1.18 H ABG pH 7.520 H POC ABG pCO2 POC ABG pO2 66.0 L ABG pO2 ABG Hemoglobin ABG Oxyhemoglobin 92.5 L ABG Sodium 133.6 L ABG Potassium ABG Chloride ABG Glucose 250 H Carboxyhemoglobin Sodium Potassium Chloride Carbon Dioxide BUN Creatinine Glucose POC Glucose Lactic Acid Calcium Phosphorus Magnesium Ferritin AST ALT Alkaline Phosphatase Lactate Dehydrogenase Troponin T C-Reactive Protein Total Protein Albumin HDL Cholesterol Arterial Blood Glucose 250 H Arterial Blood Ionized Calcium 4.4 L Urine WBC (Auto) Urine Creatinine 06/01/21 06/01/21 06/01/21 04:58 05:29 11:39 WBC RBC Hgb Hct MCV MCH MCHC RDW [place] % (Auto) [place] # (Auto) Seg Neutrophils % Seg Neuts % (Manual) Lymphocytes % (Manual) Monocytes % (Manual) Seg Neutrophils # Seg Neutrophils # Man Lymphocytes # (Manual) Monocytes # (Manual) PT APTT D-Dimer Heparin Anti-Xa Level ABG pH POC ABG pCO2 POC ABG pO2 ABG pO2 ABG Hemoglobin ABG Oxyhemoglobin ABG Sodium ABG Potassium ABG Chloride ABG Glucose Carboxyhemoglobin Sodium 131 L Potassium Chloride 95.7 L Carbon Dioxide BUN 30 H Creatinine 0.5 L Glucose 241 H POC Glucose 215 H 299 H Lactic Acid Calcium Phosphorus Magnesium Ferritin AST ALT Alkaline Phosphatase Lactate Dehydrogenase Troponin T C-Reactive Protein Total Protein Albumin HDL Cholesterol Arterial Blood Glucose Arterial Blood Ionized Calcium Urine WBC (Auto) Urine Creatinine 06/01/21 06/02/21 06/02/21 18:14 00:12 02:25 WBC 17.4 H RBC 3.09 L Hgb Hct MCV 101 H MCH 34 H MCHC RDW 15.5 H [place] % (Auto) [place] # (Auto) Seg Neutrophils % Seg Neuts % (Manual) Lymphocytes % (Manual) Monocytes % (Manual) Seg Neutrophils # Seg Neutrophils # Man Lymphocytes # (Manual) Monocytes # (Manual) PT APTT D-Dimer Heparin Anti-Xa Level ABG pH POC ABG pCO2 POC ABG pO2 ABG pO2 ABG Hemoglobin ABG Oxyhemoglobin ABG Sodium ABG Potassium ABG Chloride ABG Glucose Carboxyhemoglobin Sodium Potassium Chloride Carbon Dioxide BUN Creatinine Glucose POC Glucose 215 H 175 H Lactic Acid Calcium Phosphorus Magnesium Ferritin AST ALT Alkaline Phosphatase Lactate Dehydrogenase Troponin T C-Reactive Protein Total Protein Albumin HDL Cholesterol Arterial Blood Glucose Arterial Blood Ionized Calcium Urine WBC (Auto) Urine Creatinine 06/02/21 06/02/21 06/02/21 02:25 04:13 04:58 WBC RBC Hgb Hct MCV MCH MCHC RDW [place] % (Auto) [place] # (Auto) Seg Neutrophils % Seg Neuts % (Manual) Lymphocytes % (Manual) Monocytes % (Manual) Seg Neutrophils # Seg Neutrophils # Man Lymphocytes # (Manual) Monocytes # (Manual) PT APTT D-Dimer Heparin Anti-Xa Level ABG pH 7.481 H POC ABG pCO2 POC ABG pO2 80.0 L ABG pO2 ABG Hemoglobin 11.1 L ABG Oxyhemoglobin ABG Sodium 131.9 L ABG Potassium ABG Chloride ABG Glucose 231 H Carboxyhemoglobin 0.2 L Sodium 134 L Potassium Chloride 95.8 L Carbon Dioxide BUN 31 H Creatinine 0.5 L Glucose 168 H POC Glucose 230 H Lactic Acid Calcium Phosphorus Magnesium Ferritin AST ALT Alkaline Phosphatase Lactate Dehydrogenase Troponin T C-Reactive Protein Total Protein Albumin HDL Cholesterol Arterial Blood Glucose 231 H Arterial Blood Ionized Calcium Urine WBC (Auto) Urine Creatinine 06/02/21 06/02/21 06/02/21 11:27 17:47 23:53 WBC RBC Hgb Hct MCV MCH MCHC RDW [place] % (Auto) [place] # (Auto) Seg Neutrophils % Seg Neuts % (Manual) Lymphocytes % (Manual) Monocytes % (Manual) Seg Neutrophils # Seg Neutrophils # Man Lymphocytes # (Manual) Monocytes # (Manual) PT APTT D-Dimer Heparin Anti-Xa Level 0.80 H ABG pH POC ABG pCO2 POC ABG pO2 ABG pO2 ABG Hemoglobin ABG Oxyhemoglobin ABG Sodium ABG Potassium ABG Chloride ABG Glucose Carboxyhemoglobin Sodium Potassium Chloride Carbon Dioxide BUN Creatinine Glucose POC Glucose 259 H 297 H Lactic Acid Calcium Phosphorus Magnesium Ferritin AST ALT Alkaline Phosphatase Lactate Dehydrogenase Troponin T C-Reactive Protein Total Protein Albumin HDL Cholesterol Arterial Blood Glucose Arterial Blood Ionized Calcium Urine WBC (Auto) Urine Creatinine 06/03/21 06/03/21 06/03/21 00:05 05:23 09:10 WBC RBC Hgb Hct MCV MCH MCHC RDW [place] % (Auto) [place] # (Auto) Seg Neutrophils % Seg Neuts % (Manual) Lymphocytes % (Manual) Monocytes % (Manual) Seg Neutrophils # Seg Neutrophils # Man Lymphocytes # (Manual) Monocytes # (Manual) PT APTT D-Dimer Heparin Anti-Xa Level 0.84 H ABG pH POC ABG pCO2 POC ABG pO2 ABG pO2 ABG Hemoglobin ABG Oxyhemoglobin ABG Sodium ABG Potassium ABG Chloride ABG Glucose Carboxyhemoglobin Sodium Potassium Chloride Carbon Dioxide BUN Creatinine Glucose POC Glucose 268 H 170 H Lactic Acid Calcium Phosphorus Magnesium Ferritin AST ALT Alkaline Phosphatase Lactate Dehydrogenase Troponin T C-Reactive Protein Total Protein Albumin HDL Cholesterol Arterial Blood Glucose Arterial Blood Ionized Calcium Urine WBC (Auto) Urine Creatinine 06/03/21 06/03/21 06/03/21 12:06 20:22 23:30 WBC RBC Hgb Hct MCV MCH MCHC RDW [place] % (Auto) [place] # (Auto) Seg Neutrophils % Seg Neuts % (Manual) Lymphocytes % (Manual) Monocytes % (Manual) Seg Neutrophils # Seg Neutrophils # Man Lymphocytes # (Manual) Monocytes # (Manual) PT APTT D-Dimer Heparin Anti-Xa Level ABG pH POC ABG pCO2 POC ABG pO2 ABG pO2 ABG Hemoglobin ABG Oxyhemoglobin ABG Sodium ABG Potassium ABG Chloride ABG Glucose Carboxyhemoglobin Sodium Potassium Chloride Carbon Dioxide BUN Creatinine Glucose POC Glucose 275 H 260 H 215 H Lactic Acid Calcium Phosphorus Magnesium Ferritin AST ALT Alkaline Phosphatase Lactate Dehydrogenase Troponin T C-Reactive Protein Total Protein Albumin HDL Cholesterol Arterial Blood Glucose Arterial Blood Ionized Calcium Urine WBC (Auto) Urine Creatinine 06/04/21 06/04/21 06/04/21 05:03 05:57 05:57 WBC 17.8 H RBC 2.83 L Hgb 9.6 L Hct 28.4 L MCV 100 H MCH 34 H MCHC RDW 15.5 H [place] % (Auto) [place] # (Auto) Seg Neutrophils % Seg Neuts % (Manual) 83.0 H Lymphocytes % (Manual) 4.0 L Monocytes % (Manual) Seg Neutrophils # Seg Neutrophils # Man 14.8 H Lymphocytes # (Manual) 0.7 L Monocytes # (Manual) 1.1 H PT APTT D-Dimer Heparin Anti-Xa Level ABG pH POC ABG pCO2 POC ABG pO2 ABG pO2 ABG Hemoglobin ABG Oxyhemoglobin ABG Sodium ABG Potassium ABG Chloride ABG Glucose Carboxyhemoglobin Sodium 135 L Potassium Chloride 96.3 L Carbon Dioxide BUN 51 H Creatinine Glucose 275 H POC Glucose 257 H Lactic Acid Calcium Phosphorus Magnesium Ferritin AST ALT Alkaline Phosphatase Lactate Dehydrogenase Troponin T C-Reactive Protein Total Protein Albumin HDL Cholesterol Arterial Blood Glucose Arterial Blood Ionized Calcium Urine WBC (Auto) Urine Creatinine 06/04/21 06/04/21 06/04/21 09:48 11:08 17:33 WBC RBC Hgb Hct MCV MCH MCHC RDW [place] % (Auto) [place] # (Auto) Seg Neutrophils % Seg Neuts % (Manual) Lymphocytes % (Manual) Monocytes % (Manual) Seg Neutrophils # Seg Neutrophils # Man Lymphocytes # (Manual) Monocytes # (Manual) PT APTT D-Dimer Heparin Anti-Xa Level ABG pH POC ABG pCO2 POC ABG pO2 ABG pO2 ABG Hemoglobin ABG Oxyhemoglobin ABG Sodium ABG Potassium ABG Chloride ABG Glucose Carboxyhemoglobin Sodium Potassium Chloride Carbon Dioxide BUN Creatinine Glucose POC Glucose 198 H 234 H 247 H Lactic Acid Calcium Phosphorus Magnesium Ferritin AST ALT Alkaline Phosphatase Lactate Dehydrogenase Troponin T C-Reactive Protein Total Protein Albumin HDL Cholesterol Arterial Blood Glucose Arterial Blood Ionized Calcium Urine WBC (Auto) Urine Creatinine 06/04/21 06/05/21 06/05/21 23:30 05:38 11:24 WBC RBC Hgb Hct MCV MCH MCHC RDW [place] % (Auto) [place] # (Auto) Seg Neutrophils % Seg Neuts % (Manual) Lymphocytes % (Manual) Monocytes % (Manual) Seg Neutrophils # Seg Neutrophils # Man Lymphocytes # (Manual) Monocytes # (Manual) PT APTT D-Dimer Heparin Anti-Xa Level ABG pH POC ABG pCO2 POC ABG pO2 ABG pO2 ABG Hemoglobin ABG Oxyhemoglobin ABG Sodium ABG Potassium ABG Chloride ABG Glucose Carboxyhemoglobin Sodium Potassium Chloride Carbon Dioxide BUN Creatinine Glucose POC Glucose 192 H 192 H 287 H Lactic Acid Calcium Phosphorus Magnesium Ferritin AST ALT Alkaline Phosphatase Lactate Dehydrogenase Troponin T C-Reactive Protein Total Protein Albumin HDL Cholesterol Arterial Blood Glucose Arterial Blood Ionized Calcium Urine WBC (Auto) Urine Creatinine 06/05/21 06/05/21 06/05/21 12:20 12:20 12:20 WBC 16.2 H RBC 2.56 L Hgb 8.8 L Hct 25.2 L MCV 98 H MCH 35 H MCHC 35 H RDW 15.3 H [place] % (Auto) [place] # (Auto) Seg Neutrophils % Seg Neuts % (Manual) Lymphocytes % (Manual) Monocytes % (Manual) Seg Neutrophils # Seg Neutrophils # Man Lymphocytes # (Manual) Monocytes # (Manual) PT APTT 72.2 H* D-Dimer Heparin Anti-Xa Level ABG pH POC ABG pCO2 POC ABG pO2 ABG pO2 ABG Hemoglobin ABG Oxyhemoglobin ABG Sodium ABG Potassium ABG Chloride ABG Glucose Carboxyhemoglobin Sodium 133 L Potassium Chloride 95.3 L Carbon Dioxide BUN 57 H Creatinine Glucose 313 H POC Glucose Lactic Acid Calcium Phosphorus Magnesium Ferritin AST 90 H ALT 79 H Alkaline Phosphatase 262 H Lactate Dehydrogenase Troponin T C-Reactive Protein Total Protein Albumin 2.7 L HDL Cholesterol Arterial Blood Glucose Arterial Blood Ionized Calcium Urine WBC (Auto) Urine Creatinine 06/05/21 06/05/21 06/05/21 17:50 22:57 23:36 WBC RBC Hgb Hct MCV MCH MCHC RDW [place] % (Auto) [place] # (Auto) Seg Neutrophils % Seg Neuts % (Manual) Lymphocytes % (Manual) Monocytes % (Manual) Seg Neutrophils # Seg Neutrophils # Man Lymphocytes # (Manual) Monocytes # (Manual) PT APTT D-Dimer Heparin Anti-Xa Level 0.28 L ABG pH POC ABG pCO2 POC ABG pO2 ABG pO2 ABG Hemoglobin ABG Oxyhemoglobin ABG Sodium ABG Potassium ABG Chloride ABG Glucose Carboxyhemoglobin Sodium Potassium Chloride Carbon Dioxide BUN Creatinine Glucose POC Glucose 275 H 223 H Lactic Acid Calcium Phosphorus Magnesium Ferritin AST ALT Alkaline Phosphatase Lactate Dehydrogenase Troponin T C-Reactive Protein Total Protein Albumin HDL Cholesterol Arterial Blood Glucose Arterial Blood Ionized Calcium Urine WBC (Auto) Urine Creatinine 06/06/21 06/06/21 06/06/21 04:57 04:57 05:02 WBC 15.7 H RBC 2.77 L Hgb 9.4 L Hct 27.2 L MCV 98 H MCH 34 H MCHC RDW 15.4 H [place] % (Auto) [place] # (Auto) Seg Neutrophils % Seg Neuts % (Manual) Lymphocytes % (Manual) Monocytes % (Manual) Seg Neutrophils # Seg Neutrophils # Man Lymphocytes # (Manual) Monocytes # (Manual) PT APTT D-Dimer Heparin Anti-Xa Level ABG pH POC ABG pCO2 POC ABG pO2 ABG pO2 ABG Hemoglobin ABG Oxyhemoglobin ABG Sodium ABG Potassium ABG Chloride ABG Glucose Carboxyhemoglobin Sodium Potassium 5.7 H Chloride Carbon Dioxide BUN 57 H Creatinine Glucose 245 H POC Glucose 217 H Lactic Acid Calcium Phosphorus Magnesium Ferritin AST 99 H ALT 136 H Alkaline Phosphatase 312 H Lactate Dehydrogenase Troponin T C-Reactive Protein Total Protein 6.1 L Albumin 3.1 L HDL Cholesterol Arterial Blood Glucose Arterial Blood Ionized Calcium Urine WBC (Auto) Urine Creatinine 06/06/21 06/06/21 06/06/21 11:37 17:34 18:09 WBC RBC Hgb Hct MCV MCH MCHC RDW [place] % (Auto) [place] # (Auto) Seg Neutrophils % Seg Neuts % (Manual) Lymphocytes % (Manual) Monocytes % (Manual) Seg Neutrophils # Seg Neutrophils # Man Lymphocytes # (Manual) Monocytes # (Manual) PT APTT D-Dimer Heparin Anti-Xa Level ABG pH POC ABG pCO2 POC ABG pO2 ABG pO2 ABG Hemoglobin ABG Oxyhemoglobin ABG Sodium ABG Potassium ABG Chloride ABG Glucose Carboxyhemoglobin Sodium Potassium 5.2 H Chloride Carbon Dioxide BUN 48 H Creatinine Glucose 245 H POC Glucose 251 H 217 H Lactic Acid Calcium Phosphorus Magnesium Ferritin AST ALT Alkaline Phosphatase Lactate Dehydrogenase Troponin T C-Reactive Protein Total Protein Albumin HDL Cholesterol Arterial Blood Glucose Arterial Blood Ionized Calcium Urine WBC (Auto) Urine Creatinine 06/06/21 06/07/21 06/07/21 23:53 04:45 04:45 WBC 21.5 H RBC 2.71 L Hgb 9.0 L Hct 26.9 L MCV 99 H MCH 33 H MCHC RDW 15.3 H [place] % (Auto) [place] # (Auto) Seg Neutrophils % Seg Neuts % (Manual) Lymphocytes % (Manual) Monocytes % (Manual) Seg Neutrophils # Seg Neutrophils # Man Lymphocytes # (Manual) Monocytes # (Manual) PT APTT D-Dimer Heparin Anti-Xa Level 0.10 L ABG pH POC ABG pCO2 POC ABG pO2 ABG pO2 ABG Hemoglobin ABG Oxyhemoglobin ABG Sodium ABG Potassium ABG Chloride ABG Glucose Carboxyhemoglobin Sodium Potassium Chloride Carbon Dioxide BUN Creatinine Glucose POC Glucose 224 H Lactic Acid Calcium Phosphorus Magnesium Ferritin AST ALT Alkaline Phosphatase Lactate Dehydrogenase Troponin T C-Reactive Protein Total Protein Albumin HDL Cholesterol Arterial Blood Glucose Arterial Blood Ionized Calcium Urine WBC (Auto) Urine Creatinine 06/07/21 06/07/21 06/07/21 04:45 05:11 11:50 WBC RBC Hgb Hct MCV MCH MCHC RDW [place] % (Auto) [place] # (Auto) Seg Neutrophils % Seg Neuts % (Manual) Lymphocytes % (Manual) Monocytes % (Manual) Seg Neutrophils # Seg Neutrophils # Man Lymphocytes # (Manual) Monocytes # (Manual) PT APTT D-Dimer Heparin Anti-Xa Level ABG pH POC ABG pCO2 POC ABG pO2 ABG pO2 ABG Hemoglobin ABG Oxyhemoglobin ABG Sodium ABG Potassium ABG Chloride ABG Glucose Carboxyhemoglobin Sodium Potassium 5.4 H Chloride Carbon Dioxide BUN 55 H Creatinine Glucose 178 H POC Glucose 156 H 118 H Lactic Acid Calcium Phosphorus Magnesium Ferritin AST ALT Alkaline Phosphatase Lactate Dehydrogenase Troponin T C-Reactive Protein Total Protein Albumin HDL Cholesterol Arterial Blood Glucose Arterial Blood Ionized Calcium Urine WBC (Auto) Urine Creatinine 06/07/21 06/07/21 06/07/21 14:52 17:45 20:43 WBC RBC Hgb Hct MCV MCH MCHC RDW [place] % (Auto) [place] # (Auto) Seg Neutrophils % Seg Neuts % (Manual) Lymphocytes % (Manual) Monocytes % (Manual) Seg Neutrophils # Seg Neutrophils # Man Lymphocytes # (Manual) Monocytes # (Manual) PT APTT D-Dimer Heparin Anti-Xa Level 0.73 H ABG pH POC ABG pCO2 POC ABG pO2 ABG pO2 ABG Hemoglobin ABG Oxyhemoglobin ABG Sodium ABG Potassium ABG Chloride ABG Glucose Carboxyhemoglobin Sodium Potassium Chloride Carbon Dioxide BUN Creatinine Glucose POC Glucose 164 H Lactic Acid Calcium Phosphorus Magnesium Ferritin AST ALT Alkaline Phosphatase Lactate Dehydrogenase Troponin T C-Reactive Protein 28.90 H Total Protein Albumin HDL Cholesterol Arterial Blood Glucose Arterial Blood Ionized Calcium Urine WBC (Auto) Urine Creatinine 06/07/21 06/08/21 06/08/21 23:15 04:25 04:25 WBC 15.8 H RBC 2.58 L Hgb 8.6 L Hct 25.7 L MCV 100 H MCH 33 H MCHC RDW [place] % (Auto) [place] # (Auto) Seg Neutrophils % Seg Neuts % (Manual) 76.0 H Lymphocytes % (Manual) 6.0 L Monocytes % (Manual) 8.0 H Seg Neutrophils # Seg Neutrophils # Man 12.0 H Lymphocytes # (Manual) 0.9 L Monocytes # (Manual) 1.3 H PT APTT D-Dimer Heparin Anti-Xa Level ABG pH POC ABG pCO2 POC ABG pO2 ABG pO2 ABG Hemoglobin ABG Oxyhemoglobin ABG Sodium ABG Potassium ABG Chloride ABG Glucose Carboxyhemoglobin Sodium Potassium Chloride Carbon Dioxide BUN 65 H Creatinine Glucose 205 H POC Glucose 236 H Lactic Acid Calcium Phosphorus Magnesium Ferritin AST ALT Alkaline Phosphatase Lactate Dehydrogenase Troponin T C-Reactive Protein Total Protein Albumin HDL Cholesterol Arterial Blood Glucose Arterial Blood Ionized Calcium Urine WBC (Auto) Urine Creatinine 06/08/21 06/08/21 06/08/21 05:36 11:18 17:41 WBC RBC Hgb Hct MCV MCH MCHC RDW [place] % (Auto) [place] # (Auto) Seg Neutrophils % Seg Neuts % (Manual) Lymphocytes % (Manual) Monocytes % (Manual) Seg Neutrophils # Seg Neutrophils # Man Lymphocytes # (Manual) Monocytes # (Manual) PT APTT D-Dimer Heparin Anti-Xa Level ABG pH POC ABG pCO2 POC ABG pO2 ABG pO2 ABG Hemoglobin ABG Oxyhemoglobin ABG Sodium ABG Potassium ABG Chloride ABG Glucose Carboxyhemoglobin Sodium Potassium Chloride Carbon Dioxide BUN Creatinine Glucose POC Glucose 185 H 203 H 173 H Lactic Acid Calcium Phosphorus Magnesium Ferritin AST ALT Alkaline Phosphatase Lactate Dehydrogenase Troponin T C-Reactive Protein Total Protein Albumin HDL Cholesterol Arterial Blood Glucose Arterial Blood Ionized Calcium Urine WBC (Auto) Urine Creatinine 06/08/21 06/09/21 06/09/21 23:34 05:16 05:20 WBC 15.0 H RBC 2.54 L Hgb 8.5 L Hct 25.2 L MCV 99 H MCH 33 H MCHC RDW [place] % (Auto) [place] # (Auto) Seg Neutrophils % Seg Neuts % (Manual) Lymphocytes % (Manual) Monocytes % (Manual) Seg Neutrophils # Seg Neutrophils # Man Lymphocytes # (Manual) Monocytes # (Manual) PT APTT D-Dimer Heparin Anti-Xa Level ABG pH POC ABG pCO2 POC ABG pO2 ABG pO2 ABG Hemoglobin ABG Oxyhemoglobin ABG Sodium ABG Potassium ABG Chloride ABG Glucose Carboxyhemoglobin Sodium Potassium Chloride Carbon Dioxide BUN Creatinine Glucose POC Glucose 200 H 154 H Lactic Acid Calcium Phosphorus Magnesium Ferritin AST ALT Alkaline Phosphatase Lactate Dehydrogenase Troponin T C-Reactive Protein Total Protein Albumin HDL Cholesterol Arterial Blood Glucose Arterial Blood Ionized Calcium Urine WBC (Auto) Urine Creatinine 06/09/21 06/09/21 06/09/21 05:20 11:40 17:09 WBC RBC Hgb Hct MCV MCH MCHC RDW [place] % (Auto) [place] # (Auto) Seg Neutrophils % Seg Neuts % (Manual) Lymphocytes % (Manual) Monocytes % (Manual) Seg Neutrophils # Seg Neutrophils # Man Lymphocytes # (Manual) Monocytes # (Manual) PT APTT D-Dimer Heparin Anti-Xa Level ABG pH POC ABG pCO2 POC ABG pO2 ABG pO2 ABG Hemoglobin ABG Oxyhemoglobin ABG Sodium ABG Potassium ABG Chloride ABG Glucose Carboxyhemoglobin Sodium Potassium 5.2 H Chloride Carbon Dioxide BUN 69 H Creatinine Glucose 163 H POC Glucose 232 H 137 H Lactic Acid Calcium Phosphorus Magnesium Ferritin AST ALT Alkaline Phosphatase Lactate Dehydrogenase Troponin T C-Reactive Protein Total Protein Albumin HDL Cholesterol Arterial Blood Glucose Arterial Blood Ionized Calcium Urine WBC (Auto) Urine Creatinine 06/09/21 06/10/21 06/10/21 23:31 04:42 04:42 WBC 14.5 H RBC 2.41 L Hgb 8.2 L Hct 24.0 L MCV 100 H MCH 34 H MCHC RDW 15.8 H [place] % (Auto) [place] # (Auto) Seg Neutrophils % Seg Neuts % (Manual) Lymphocytes % (Manual) Monocytes % (Manual) Seg Neutrophils # Seg Neutrophils # Man Lymphocytes # (Manual) Monocytes # (Manual) PT APTT D-Dimer Heparin Anti-Xa Level ABG pH POC ABG pCO2 POC ABG pO2 ABG pO2 ABG Hemoglobin ABG Oxyhemoglobin ABG Sodium ABG Potassium ABG Chloride ABG Glucose Carboxyhemoglobin Sodium 146 H D Potassium 3.4 L D Chloride Carbon Dioxide BUN 62 H Creatinine Glucose 174 H POC Glucose 162 H Lactic Acid Calcium Phosphorus Magnesium Ferritin AST ALT Alkaline Phosphatase Lactate Dehydrogenase Troponin T C-Reactive Protein Total Protein Albumin HDL Cholesterol Arterial Blood Glucose Arterial Blood Ionized Calcium Urine WBC (Auto) Urine Creatinine 06/10/21 06/10/21 06/10/21 05:36 11:43 18:24 WBC RBC Hgb Hct MCV MCH MCHC RDW [place] % (Auto) [place] # (Auto) Seg Neutrophils % Seg Neuts % (Manual) Lymphocytes % (Manual) Monocytes % (Manual) Seg Neutrophils # Seg Neutrophils # Man Lymphocytes # (Manual) Monocytes # (Manual) PT APTT D-Dimer Heparin Anti-Xa Level ABG pH POC ABG pCO2 POC ABG pO2 ABG pO2 ABG Hemoglobin ABG Oxyhemoglobin ABG Sodium ABG Potassium ABG Chloride ABG Glucose Carboxyhemoglobin Sodium Potassium Chloride Carbon Dioxide BUN Creatinine Glucose POC Glucose 149 H 183 H 139 H Lactic Acid Calcium Phosphorus Magnesium Ferritin AST ALT Alkaline Phosphatase Lactate Dehydrogenase Troponin T C-Reactive Protein Total Protein Albumin HDL Cholesterol Arterial Blood Glucose Arterial Blood Ionized Calcium Urine WBC (Auto) Urine Creatinine 06/10/21 06/11/21 06/11/21 23:32 04:17 05:22 WBC RBC Hgb Hct MCV MCH MCHC RDW [place] % (Auto) [place] # (Auto) Seg Neutrophils % Seg Neuts % (Manual) Lymphocytes % (Manual) Monocytes % (Manual) Seg Neutrophils # Seg Neutrophils # Man Lymphocytes # (Manual) Monocytes # (Manual) PT APTT D-Dimer Heparin Anti-Xa Level 0.84 H ABG pH POC ABG pCO2 POC ABG pO2 ABG pO2 ABG Hemoglobin ABG Oxyhemoglobin ABG Sodium ABG Potassium ABG Chloride ABG Glucose Carboxyhemoglobin Sodium Potassium Chloride Carbon Dioxide BUN Creatinine Glucose POC Glucose 149 H 138 H Lactic Acid Calcium Phosphorus Magnesium Ferritin AST ALT Alkaline Phosphatase Lactate Dehydrogenase Troponin T C-Reactive Protein Total Protein Albumin HDL Cholesterol Arterial Blood Glucose Arterial Blood Ionized Calcium Urine WBC (Auto) Urine Creatinine 06/11/21 06/11/21 06/12/21 11:26 23:56 04:44 WBC 15.5 H RBC 2.59 L Hgb 8.6 L Hct 25.8 L MCV 100 H MCH 33 H MCHC RDW 15.3 H [place] % (Auto) [place] # (Auto) Seg Neutrophils % Seg Neuts % (Manual) Lymphocytes % (Manual) Monocytes % (Manual) Seg Neutrophils # Seg Neutrophils # Man Lymphocytes # (Manual) Monocytes # (Manual) PT APTT D-Dimer Heparin Anti-Xa Level ABG pH POC ABG pCO2 POC ABG pO2 ABG pO2 ABG Hemoglobin ABG Oxyhemoglobin ABG Sodium ABG Potassium ABG Chloride ABG Glucose Carboxyhemoglobin Sodium Potassium Chloride Carbon Dioxide BUN Creatinine Glucose POC Glucose 198 H 199 H Lactic Acid Calcium Phosphorus Magnesium Ferritin AST ALT Alkaline Phosphatase Lactate Dehydrogenase Troponin T C-Reactive Protein Total Protein Albumin HDL Cholesterol Arterial Blood Glucose Arterial Blood Ionized Calcium Urine WBC (Auto) Urine Creatinine 06/12/21 06/12/21 06/12/21 04:44 04:44 05:29 WBC RBC Hgb Hct MCV MCH MCHC RDW [place] % (Auto) [place] # (Auto) Seg Neutrophils % Seg Neuts % (Manual) Lymphocytes % (Manual) Monocytes % (Manual) Seg Neutrophils # Seg Neutrophils # Man Lymphocytes # (Manual) Monocytes # (Manual) PT APTT D-Dimer Heparin Anti-Xa Level ABG pH POC ABG pCO2 POC ABG pO2 ABG pO2 ABG Hemoglobin ABG Oxyhemoglobin ABG Sodium ABG Potassium ABG Chloride ABG Glucose Carboxyhemoglobin Sodium 148 H Potassium Chloride Carbon Dioxide BUN 49 H 51 H Creatinine Glucose 222 H 223 H POC Glucose 193 H Lactic Acid Calcium Phosphorus Magnesium 3.20 H Ferritin AST 81 H ALT 83 H Alkaline Phosphatase 215 H Lactate Dehydrogenase Troponin T C-Reactive Protein Total Protein Albumin 3.2 L HDL Cholesterol Arterial Blood Glucose Arterial Blood Ionized Calcium Urine WBC (Auto) Urine Creatinine 06/12/21 06/12/21 06/12/21 11:21 17:55 23:23 WBC RBC Hgb Hct MCV MCH MCHC RDW [place] % (Auto) [place] # (Auto) Seg Neutrophils % Seg Neuts % (Manual) Lymphocytes % (Manual) Monocytes % (Manual) Seg Neutrophils # Seg Neutrophils # Man Lymphocytes # (Manual) Monocytes # (Manual) PT APTT D-Dimer Heparin Anti-Xa Level ABG pH POC ABG pCO2 POC ABG pO2 ABG pO2 ABG Hemoglobin ABG Oxyhemoglobin ABG Sodium ABG Potassium ABG Chloride ABG Glucose Carboxyhemoglobin Sodium Potassium Chloride Carbon Dioxide BUN Creatinine Glucose POC Glucose 185 H 210 H 211 H Lactic Acid Calcium Phosphorus Magnesium Ferritin AST ALT Alkaline Phosphatase Lactate Dehydrogenase Troponin T C-Reactive Protein Total Protein Albumin HDL Cholesterol Arterial Blood Glucose Arterial Blood Ionized Calcium Urine WBC (Auto) Urine Creatinine 06/13/21 06/13/21 06/13/21 04:34 04:34 05:17 WBC 17.2 H RBC 2.56 L Hgb 8.6 L Hct 26.1 L MCV 102 H MCH 34 H MCHC RDW [place] % (Auto) [place] # (Auto) Seg Neutrophils % Seg Neuts % (Manual) Lymphocytes % (Manual) Monocytes % (Manual) Seg Neutrophils # Seg Neutrophils # Man Lymphocytes # (Manual) Monocytes # (Manual) PT APTT D-Dimer Heparin Anti-Xa Level ABG pH POC ABG pCO2 POC ABG pO2 ABG pO2 ABG Hemoglobin ABG Oxyhemoglobin ABG Sodium ABG Potassium ABG Chloride ABG Glucose Carboxyhemoglobin Sodium 149 H Potassium 5.1 H Chloride Carbon Dioxide BUN 52 H Creatinine 1.6 H Glucose 231 H POC Glucose 207 H Lactic Acid Calcium Phosphorus Magnesium Ferritin AST 69 H ALT 74 H Alkaline Phosphatase 197 H Lactate Dehydrogenase Troponin T C-Reactive Protein Total Protein Albumin 3.0 L HDL Cholesterol Arterial Blood Glucose Arterial Blood Ionized Calcium Urine WBC (Auto) Urine Creatinine 06/13/21 06/13/21 06/13/21 10:44 11:07 12:07 WBC RBC Hgb Hct MCV MCH MCHC RDW [place] % (Auto) [place] # (Auto) Seg Neutrophils % Seg Neuts % (Manual) Lymphocytes % (Manual) Monocytes % (Manual) Seg Neutrophils # Seg Neutrophils # Man Lymphocytes # (Manual) Monocytes # (Manual) PT APTT D-Dimer Heparin Anti-Xa Level < 0.10 L ABG pH 7.455 H POC ABG pCO2 POC ABG pO2 ABG pO2 ABG Hemoglobin 8.6 L ABG Oxyhemoglobin ABG Sodium ABG Potassium 4.7 H ABG Chloride ABG Glucose 277 H Carboxyhemoglobin Sodium Potassium Chloride Carbon Dioxide BUN Creatinine Glucose POC Glucose 241 H Lactic Acid Calcium Phosphorus Magnesium Ferritin AST ALT Alkaline Phosphatase Lactate Dehydrogenase Troponin T C-Reactive Protein Total Protein Albumin HDL Cholesterol Arterial Blood Glucose 277 H Arterial Blood Ionized Calcium Urine WBC (Auto) Urine Creatinine 06/13/21 06/13/21 06/13/21 17:35 21:13 23:19 WBC RBC Hgb Hct MCV MCH MCHC RDW [place] % (Auto) [place] # (Auto) Seg Neutrophils % Seg Neuts % (Manual) Lymphocytes % (Manual) Monocytes % (Manual) Seg Neutrophils # Seg Neutrophils # Man Lymphocytes # (Manual) Monocytes # (Manual) PT APTT D-Dimer Heparin Anti-Xa Level 0.92 H ABG pH POC ABG pCO2 POC ABG pO2 ABG pO2 ABG Hemoglobin ABG Oxyhemoglobin ABG Sodium ABG Potassium ABG Chloride ABG Glucose Carboxyhemoglobin Sodium Potassium Chloride Carbon Dioxide BUN Creatinine Glucose POC Glucose 233 H 232 H Lactic Acid Calcium Phosphorus Magnesium Ferritin AST ALT Alkaline Phosphatase Lactate Dehydrogenase Troponin T C-Reactive Protein Total Protein Albumin HDL Cholesterol Arterial Blood Glucose Arterial Blood Ionized Calcium Urine WBC (Auto) Urine Creatinine 06/14/21 06/14/21 06/14/21 04:21 04:21 05:36 WBC 15.6 H RBC 2.26 L Hgb 7.6 L Hct 22.9 L MCV 101 H MCH 34 H MCHC RDW 15.3 H [place] % (Auto) [place] # (Auto) Seg Neutrophils % Seg Neuts % (Manual) Lymphocytes % (Manual) Monocytes % (Manual) Seg Neutrophils # Seg Neutrophils # Man Lymphocytes # (Manual) Monocytes # (Manual) PT APTT D-Dimer Heparin Anti-Xa Level ABG pH POC ABG pCO2 POC ABG pO2 ABG pO2 ABG Hemoglobin ABG Oxyhemoglobin ABG Sodium ABG Potassium ABG Chloride ABG Glucose Carboxyhemoglobin Sodium 149 H Potassium Chloride 107.8 H Carbon Dioxide BUN 66 H Creatinine 1.8 H Glucose 192 H POC Glucose 166 H Lactic Acid Calcium Phosphorus Magnesium Ferritin AST ALT Alkaline Phosphatase Lactate Dehydrogenase Troponin T C-Reactive Protein Total Protein Albumin HDL Cholesterol Arterial Blood Glucose Arterial Blood Ionized Calcium Urine WBC (Auto) Urine Creatinine 06/14/21 06/14/21 06/14/21 12:21 17:07 23:14 WBC RBC Hgb Hct MCV MCH MCHC RDW [place] % (Auto) [place] # (Auto) Seg Neutrophils % Seg Neuts % (Manual) Lymphocytes % (Manual) Monocytes % (Manual) Seg Neutrophils # Seg Neutrophils # Man Lymphocytes # (Manual) Monocytes # (Manual) PT APTT D-Dimer Heparin Anti-Xa Level ABG pH POC ABG pCO2 POC ABG pO2 ABG pO2 ABG Hemoglobin ABG Oxyhemoglobin ABG Sodium ABG Potassium ABG Chloride ABG Glucose Carboxyhemoglobin Sodium Potassium Chloride Carbon Dioxide BUN Creatinine Glucose POC Glucose 190 H 172 H 195 H Lactic Acid Calcium Phosphorus Magnesium Ferritin AST ALT Alkaline Phosphatase Lactate Dehydrogenase Troponin T C-Reactive Protein Total Protein Albumin HDL Cholesterol Arterial Blood Glucose Arterial Blood Ionized Calcium Urine WBC (Auto) Urine Creatinine 06/15/21 06/15/21 06/15/21 05:08 05:08 05:47 WBC 15.3 H RBC 2.23 L Hgb 7.3 L Hct 22.5 L MCV 101 H MCH 33 H MCHC RDW [place] % (Auto) [place] # (Auto) Seg Neutrophils % Seg Neuts % (Manual) Lymphocytes % (Manual) Monocytes % (Manual) Seg Neutrophils # Seg Neutrophils # Man Lymphocytes # (Manual) Monocytes # (Manual) PT APTT D-Dimer Heparin Anti-Xa Level ABG pH POC ABG pCO2 POC ABG pO2 ABG pO2 ABG Hemoglobin ABG Oxyhemoglobin ABG Sodium ABG Potassium ABG Chloride ABG Glucose Carboxyhemoglobin Sodium 147 H Potassium Chloride Carbon Dioxide BUN 60 H Creatinine 1.6 H Glucose 158 H POC Glucose 150 H Lactic Acid Calcium 8.2 L Phosphorus 5.90 H Magnesium 3.20 H Ferritin AST ALT Alkaline Phosphatase Lactate Dehydrogenase Troponin T C-Reactive Protein Total Protein Albumin HDL Cholesterol Arterial Blood Glucose Arterial Blood Ionized Calcium Urine WBC (Auto) Urine Creatinine 06/15/21 06/15/21 06/15/21 10:19 11:25 17:47 WBC RBC Hgb Hct MCV MCH MCHC RDW [place] % (Auto) [place] # (Auto) Seg Neutrophils % Seg Neuts % (Manual) Lymphocytes % (Manual) Monocytes % (Manual) Seg Neutrophils # Seg Neutrophils # Man Lymphocytes # (Manual) Monocytes # (Manual) PT APTT D-Dimer Heparin Anti-Xa Level ABG pH 7.471 H POC ABG pCO2 POC ABG pO2 ABG pO2 ABG Hemoglobin ABG Oxyhemoglobin ABG Sodium ABG Potassium ABG Chloride ABG Glucose Carboxyhemoglobin Sodium Potassium Chloride Carbon Dioxide BUN Creatinine Glucose POC Glucose 133 H 201 H Lactic Acid Calcium Phosphorus Magnesium Ferritin AST ALT Alkaline Phosphatase Lactate Dehydrogenase Troponin T C-Reactive Protein Total Protein Albumin HDL Cholesterol Arterial Blood Glucose Arterial Blood Ionized Calcium Urine WBC (Auto) Urine Creatinine 06/15/21 06/15/21 06/16/21 23:43 Unknown 04:31 WBC 13.8 H RBC 2.23 L Hgb 7.5 L Hct 22.4 L MCV 101 H MCH 34 H MCHC RDW [place] % (Auto) [place] # (Auto) Seg Neutrophils % Seg Neuts % (Manual) Lymphocytes % (Manual) Monocytes % (Manual) Seg Neutrophils # Seg Neutrophils # Man Lymphocytes # (Manual) Monocytes # (Manual) PT APTT D-Dimer Heparin Anti-Xa Level ABG pH POC ABG pCO2 POC ABG pO2 ABG pO2 ABG Hemoglobin ABG Oxyhemoglobin ABG Sodium ABG Potassium ABG Chloride ABG Glucose Carboxyhemoglobin Sodium Potassium Chloride Carbon Dioxide BUN Creatinine Glucose POC Glucose 148 H Lactic Acid Calcium Phosphorus Magnesium Ferritin AST ALT Alkaline Phosphatase Lactate Dehydrogenase Troponin T C-Reactive Protein Total Protein Albumin HDL Cholesterol Arterial Blood Glucose Arterial Blood Ionized Calcium Urine WBC (Auto) Urine Creatinine 74.7 H 06/16/21 06/16/21 06/16/21 04:31 05:48 11:47 WBC RBC Hgb Hct MCV MCH MCHC RDW [place] % (Auto) [place] # (Auto) Seg Neutrophils % Seg Neuts % (Manual) Lymphocytes % (Manual) Monocytes % (Manual) Seg Neutrophils # Seg Neutrophils # Man Lymphocytes # (Manual) Monocytes # (Manual) PT APTT D-Dimer Heparin Anti-Xa Level ABG pH POC ABG pCO2 POC ABG pO2 ABG pO2 ABG Hemoglobin ABG Oxyhemoglobin ABG Sodium ABG Potassium ABG Chloride ABG Glucose Carboxyhemoglobin Sodium Potassium Chloride Carbon Dioxide BUN 49 H Creatinine 1.3 H Glucose 194 H POC Glucose 184 H 190 H Lactic Acid Calcium Phosphorus 5.40 H Magnesium 2.90 H Ferritin AST ALT Alkaline Phosphatase Lactate Dehydrogenase Troponin T C-Reactive Protein Total Protein Albumin HDL Cholesterol Arterial Blood Glucose Arterial Blood Ionized Calcium Urine WBC (Auto) Urine Creatinine 06/16/21 06/16/21 06/16/21 18:51 18:51 23:13 WBC 12.4 H RBC 2.22 L Hgb 7.3 L Hct 22.4 L MCV 101 H MCH 33 H MCHC RDW [place] % (Auto) [place] # (Auto) Seg Neutrophils % Seg Neuts % (Manual) Lymphocytes % (Manual) Monocytes % (Manual) Seg Neutrophils # Seg Neutrophils # Man Lymphocytes # (Manual) Monocytes # (Manual) PT APTT 64.1 H* D-Dimer Heparin Anti-Xa Level ABG pH POC ABG pCO2 POC ABG pO2 ABG pO2 ABG Hemoglobin ABG Oxyhemoglobin ABG Sodium ABG Potassium ABG Chloride ABG Glucose Carboxyhemoglobin Sodium Potassium Chloride Carbon Dioxide BUN Creatinine Glucose POC Glucose 160 H Lactic Acid Calcium Phosphorus Magnesium Ferritin AST ALT Alkaline Phosphatase Lactate Dehydrogenase Troponin T C-Reactive Protein Total Protein Albumin HDL Cholesterol Arterial Blood Glucose Arterial Blood Ionized Calcium Urine WBC (Auto) Urine Creatinine 06/17/21 06/17/21 06/17/21 04:19 05:02 11:56 WBC RBC Hgb Hct MCV MCH MCHC RDW [place] % (Auto) [place] # (Auto) Seg Neutrophils % Seg Neuts % (Manual) Lymphocytes % (Manual) Monocytes % (Manual) Seg Neutrophils # Seg Neutrophils # Man Lymphocytes # (Manual) Monocytes # (Manual) PT APTT D-Dimer Heparin Anti-Xa Level 1.53 H ABG pH POC ABG pCO2 POC ABG pO2 ABG pO2 ABG Hemoglobin ABG Oxyhemoglobin ABG Sodium ABG Potassium ABG Chloride ABG Glucose Carboxyhemoglobin Sodium Potassium Chloride Carbon Dioxide BUN Creatinine Glucose POC Glucose 167 H 166 H Lactic Acid Calcium Phosphorus Magnesium Ferritin AST ALT Alkaline Phosphatase Lactate Dehydrogenase Troponin T C-Reactive Protein Total Protein Albumin HDL Cholesterol Arterial Blood Glucose Arterial Blood Ionized Calcium Urine WBC (Auto) Urine Creatinine 06/17/21 06/17/21 06/17/21 17:48 22:42 23:08 WBC RBC Hgb Hct MCV MCH MCHC RDW [place] % (Auto) [place] # (Auto) Seg Neutrophils % Seg Neuts % (Manual) Lymphocytes % (Manual) Monocytes % (Manual) Seg Neutrophils # Seg Neutrophils # Man Lymphocytes # (Manual) Monocytes # (Manual) PT APTT D-Dimer Heparin Anti-Xa Level ABG pH POC ABG pCO2 POC ABG pO2 ABG pO2 ABG Hemoglobin ABG Oxyhemoglobin ABG Sodium ABG Potassium ABG Chloride ABG Glucose Carboxyhemoglobin Sodium Potassium Chloride Carbon Dioxide BUN Creatinine Glucose POC Glucose 159 H 122 H 114 H Lactic Acid Calcium Phosphorus Magnesium Ferritin AST ALT Alkaline Phosphatase Lactate Dehydrogenase Troponin T C-Reactive Protein Total Protein Albumin HDL Cholesterol Arterial Blood Glucose Arterial Blood Ionized Calcium Urine WBC (Auto) Urine Creatinine 06/18/21 06/18/21 06/18/21 05:40 06:20 13:11 WBC RBC 2.19 L Hgb 7.3 L Hct 21.9 L MCV 100 H MCH 33 H MCHC RDW [place] % (Auto) [place] # (Auto) Seg Neutrophils % Seg Neuts % (Manual) Lymphocytes % (Manual) Monocytes % (Manual) Seg Neutrophils # Seg Neutrophils # Man Lymphocytes # (Manual) Monocytes # (Manual) PT APTT D-Dimer Heparin Anti-Xa Level ABG pH POC ABG pCO2 POC ABG pO2 ABG pO2 ABG Hemoglobin ABG Oxyhemoglobin ABG Sodium ABG Potassium ABG Chloride ABG Glucose Carboxyhemoglobin Sodium Potassium Chloride Carbon Dioxide BUN Creatinine Glucose POC Glucose 174 H 149 H Lactic Acid Calcium Phosphorus Magnesium Ferritin AST ALT Alkaline Phosphatase Lactate Dehydrogenase Troponin T C-Reactive Protein Total Protein Albumin HDL Cholesterol Arterial Blood Glucose Arterial Blood Ionized Calcium Urine WBC (Auto) Urine Creatinine 06/18/21 06/18/21 06/18/21 18:50 21:45 23:12 WBC RBC Hgb Hct MCV MCH MCHC RDW [place] % (Auto) [place] # (Auto) Seg Neutrophils % Seg Neuts % (Manual) Lymphocytes % (Manual) Monocytes % (Manual) Seg Neutrophils # Seg Neutrophils # Man Lymphocytes # (Manual) Monocytes # (Manual) PT APTT D-Dimer Heparin Anti-Xa Level ABG pH POC ABG pCO2 POC ABG pO2 ABG pO2 ABG Hemoglobin ABG Oxyhemoglobin ABG Sodium ABG Potassium ABG Chloride ABG Glucose Carboxyhemoglobin Sodium Potassium Chloride Carbon Dioxide BUN Creatinine Glucose POC Glucose 152 H 151 H 178 H Lactic Acid Calcium Phosphorus Magnesium Ferritin AST ALT Alkaline Phosphatase Lactate Dehydrogenase Troponin T C-Reactive Protein Total Protein Albumin HDL Cholesterol Arterial Blood Glucose Arterial Blood Ionized Calcium Urine WBC (Auto) Urine Creatinine 06/19/21 06/19/21 06/19/21 06:20 06:20 11:54 WBC RBC 2.19 L Hgb 7.4 L Hct 22.2 L MCV 102 H MCH 34 H MCHC RDW [place] % (Auto) 11.3 H [place] # (Auto) 1.0 H Seg Neutrophils % Seg Neuts % (Manual) Lymphocytes % (Manual) Monocytes % (Manual) Seg Neutrophils # Seg Neutrophils # Man Lymphocytes # (Manual) Monocytes # (Manual) PT APTT D-Dimer Heparin Anti-Xa Level ABG pH POC ABG pCO2 POC ABG pO2 ABG pO2 ABG Hemoglobin ABG Oxyhemoglobin ABG Sodium ABG Potassium ABG Chloride ABG Glucose Carboxyhemoglobin Sodium 148 H Potassium Chloride 109.4 H Carbon Dioxide BUN 26 H Creatinine Glucose 109 H POC Glucose 131 H Lactic Acid Calcium Phosphorus Magnesium 2.40 H Ferritin AST ALT Alkaline Phosphatase Lactate Dehydrogenase Troponin T C-Reactive Protein Total Protein Albumin HDL Cholesterol Arterial Blood Glucose Arterial Blood Ionized Calcium Urine WBC (Auto) Urine Creatinine 06/19/21 06/19/21 06/19/21 17:21 21:31 23:13 WBC RBC Hgb Hct MCV MCH MCHC RDW [place] % (Auto) [place] # (Auto) Seg Neutrophils % Seg Neuts % (Manual) Lymphocytes % (Manual) Monocytes % (Manual) Seg Neutrophils # Seg Neutrophils # Man Lymphocytes # (Manual) Monocytes # (Manual) PT APTT D-Dimer Heparin Anti-Xa Level ABG pH POC ABG pCO2 POC ABG pO2 ABG pO2 ABG Hemoglobin ABG Oxyhemoglobin ABG Sodium ABG Potassium ABG Chloride ABG Glucose Carboxyhemoglobin Sodium Potassium Chloride Carbon Dioxide BUN Creatinine Glucose POC Glucose 178 H 174 H 216 H Lactic Acid Calcium Phosphorus Magnesium Ferritin AST ALT Alkaline Phosphatase Lactate Dehydrogenase Troponin T C-Reactive Protein Total Protein Albumin HDL Cholesterol Arterial Blood Glucose Arterial Blood Ionized Calcium Urine WBC (Auto) Urine Creatinine 06/20/21 06/20/21 06/20/21 04:18 05:15 11:22 WBC RBC 2.26 L Hgb 7.7 L Hct 22.9 L MCV 101 H MCH 34 H MCHC RDW [place] % (Auto) [place] # (Auto) Seg Neutrophils % Seg Neuts % (Manual) Lymphocytes % (Manual) Monocytes % (Manual) Seg Neutrophils # Seg Neutrophils # Man Lymphocytes # (Manual) Monocytes # (Manual) PT APTT D-Dimer Heparin Anti-Xa Level ABG pH POC ABG pCO2 POC ABG pO2 ABG pO2 ABG Hemoglobin ABG Oxyhemoglobin ABG Sodium ABG Potassium ABG Chloride ABG Glucose Carboxyhemoglobin Sodium Potassium Chloride Carbon Dioxide BUN Creatinine Glucose POC Glucose 119 H 177 H Lactic Acid Calcium Phosphorus Magnesium Ferritin AST ALT Alkaline Phosphatase Lactate Dehydrogenase Troponin T C-Reactive Protein Total Protein Albumin HDL Cholesterol Arterial Blood Glucose Arterial Blood Ionized Calcium Urine WBC (Auto) Urine Creatinine 06/20/21 13:30 WBC RBC Hgb Hct MCV MCH MCHC RDW [place] % (Auto) [place] # (Auto) Seg Neutrophils % Seg Neuts % (Manual) Lymphocytes % (Manual) Monocytes % (Manual) Seg Neutrophils # Seg Neutrophils # Man Lymphocytes # (Manual) Monocytes # (Manual) PT APTT D-Dimer Heparin Anti-Xa Level ABG pH POC ABG pCO2 POC ABG pO2 ABG pO2 ABG Hemoglobin ABG Oxyhemoglobin ABG Sodium ABG Potassium ABG Chloride ABG Glucose Carboxyhemoglobin Sodium Potassium Chloride Carbon Dioxide BUN 31 H Creatinine Glucose 196 H POC Glucose Lactic Acid Calcium Phosphorus Magnesium Ferritin AST ALT Alkaline Phosphatase Lactate Dehydrogenase Troponin T C-Reactive Protein Total Protein Albumin HDL Cholesterol Arterial Blood Glucose Arterial Blood Ionized Calcium Urine WBC (Auto) Urine Creatinine Chest x-ray: pending Allied health notes reviewed: nursing
--- NOTE | 2021-06-20 16:00 | Progress Note ---
<TOBIAS QUIROS - Last Filed: 06/20/21 17:03> Assessment and Plan Assessment and plan: This is a 65 year old female with HTN, nonepileptic spells, PTSD, close head injury, DM, CAD s/p stents and NV, independence, hyperlipidemia admitted with sepsis, pneumonia, acute proximal respiratory failure, toxic metabolic encephalo jaky, suspected anoxic brain injury, metabolic acidosis Hospital Course to Date: 05/26/21: Updated family at the bedside, Covid test is negative. Will order EEG and neuro consult. Remains intubated, follow clinically. Sedated on Midazolam and Propofol, just received one dose of Lorazepam for witnessed seizure by RN. NSR now, on heparin drip 05/27/21; remains intubated. pending EEG and neuro eval. wean off vent as tolerated. Continue heparin drip per cardiology, replete potassium yesterday, follow BMP. BP noted to be elevated, next started on antihypertensives. 05/28/21; BP noted to be elevated, initiated on antihypertensive, remains intubated. Pending neurology evaluation and EEG. Continue supportive care, follow BMP. 05/29/21: Ordered for MRI brain, continue Keppra, pending EEG. Appreciate neuro recommendation. follow BMP, tolerating TF 05/30/21: Patient remains intubated, pending MRI brain, follow neurology recommendation. EEG showed diffuse slowing. 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 off sedation now, cont to follow. gurded prognosis 06/01: MRI was suggestive of watershed infarct bilaterally and was seen by neurology and recommend to do MRI with gadolinium. Patient is off sedation and still unresponsive. Prognosis is guarded. 06/02: Continue current management. Prognosis is guarded. Patient needs trach. 06/03: Patient is unresponsive spite of all sedatives. Prognosis is guarded to poor. Neurology consult appreciated. 06/04: Patient is unresponsive. Patient is off sedatives. Blood sugar is uncontrolled and I adjusted her insulin. Neurology consult appreciated. Prognosis is guarded to poor. 06/05/21- Patient remains ETT and on vent support. Off sedation with some improvement in neuro status, but is not following commands. Patient is tolerating SBT trial this am, still on the heparin gtt. AM labs is pending. Patient is still hyperglycemic, increased Qhs lantus. Continue supportive care. 06/06/21- Patient is intubated and on the vent. No longer on sedation, awake but unresponsive, tolerating SBT. Hyperglycemia this am, X1 dose of kayaxalate orderd. Persistent hyperglycemia, insulin adjusted. Continue to monitor electrolytes, repeat BMP this afternoon and am labs ordered. 06/07/21- Patient remains intubated and on the vent. Neuro status is unchanged, spontaneously open yes but is not following commands. SBT trial again, plan to place back on a rate overnight. Leukocytosis noted from this morning lab, stat procalc and CRP ordered, d/w CCM no abx at this time. K 5.4 today, kayalalxate given. Continue to monitor leukocytosis and electrolytes. Am labs ordered 06/08/21- Patient remains intubated and on the vent with no significant change in her neuro status. Patient with no BM in 7days, abdominal soft with positive bowel sounds, colace added and PRN ducolax Supp PRN. Continue to monitor leukocytosis and electrolytes, am labs ordered. Plan for trach and PEG, surgery consulted. 06/09/21- Patient remains stable, intubated with no significant change in neuro status. Trach and Peg cancelled for today. Plan for possibly next week. Hyperkalemia again today, chart review for possible meds interaction. X1 dose of kayexalate ordered. Still no BM today. Episode of emesis today, TF held and NGT to LIS until tommorrow. Orders place for KUB today and Chest XR for the morning. Morning labs ordered. 06/10: Continue supportive care. Trach and PEG planned for early next week. KUB and x-ray with no significant change. Opacity still persist. Critical care management noted. Patient still persistent leukocytosis we will continue to monitor mild hypokalemia noted will replace with potassium. Also noted mild hypernatremia. Agree with holding tube feeds at this time 06/11: Discussed with nursing staff to change to history trickle feeds. Patient is planned for trach and PEG Saturday or Saturday. Continue current management also discussed to hold heparin drip for planned procedure with noted timeframe. We will recheck labs to ensure correction of electrolytes. 06/12/21- Patient's status is unchanged. No significant events overnight. Plan for trach and PEG today. TF and heparin gtt on hold. Continue supportive care. Continue to monitor electrolytes, am labs ordered. 06/13/21- Patient is s/p trach and PEG. D/w surgery okay to use PEGTube and restart TF. Heparin gtt was also restarted per protocol. Persistent hypernatremia and FWF increased for 48hrs, mild hyperkalemia noted no intervention at this time. Continue to monitor renal function and electrolytes, am labs ordered. 06/14: Transition to PO anticoagulation from heparin gtt tomorrow. plan to place on tpiece tomorrow. 06/15: Patient spiked a temp today and was root cultured, h/h decreasing and stool occult ordered. Increase in insulin. T piece trials today. Small volume emesis x2 06/16; patient is on T-piece, On heparin drip for A. fib, will transition to Eliquis , I discussed the case with medical collections specialist 06/17; tracheal cultures positive for gram-negative rods, ordered cefepime, f ollow cultures Consider ID consult 06/18 no significant change, patient receiving cefepime[sputum cultures gram- negative rods] Follow sensitivities, ID if needed 06/19- Patient was place on Tpiece this morning, plan for Tpiece for 12hrs and rest on the vent overnight. Patient remains afebrile, leukocytosis improved, and patient remains on empiric IV abx. D/W CCM possible ID consult if worsen. 06/20- No significant change in patient status. Patient is tolerating Tpiece, plan to rest on the vent overnight. Patient TMAX 99.8, leukocytosis remains stable, cefepine transition to Rocephin for +Ecoli in sputum. Consider ID consult if febrile. Will continue to monitor, am labs ordered Assessment and Plan Neuro: Toxic metabolic encephalopathy, likely anoxic brain injury, tonic-cloninc seziure; h/o nonepileptic spells, PTSD, closed head injury -Neurology consulted, appreciate recommendations -CT head completed->see results, without acute or large territorial infarct -Per neurology: MRI brain is suggestive of water shed Infarct Bilateral -- mostly related to Hypoperfusion -06/01 repeat MRI brain noted, possible subacute ischemic changes. -Intact cough/gag, pupils sluggish -Keppra -EEG showed no signs of seizure -prn ativan -Patient is off sedation, open eyes spontaneously, pupils reactive, with +gag an d cough. -Not following commands, no movement to stimuli Cardio: S/p cardiac arrest, A. fib with RVR, h/o HTN -Currently on Labetalol, Hydralazine, valsartan, & Doxazosin -PRN hydral IV -Cardiology consulted, appreciate recommendations -05/2020 dobutamine thallium stress test showed normal perfusion study. -05/2020 echo showed normal left ventricular systolic function. -NIBP per protocol Resp: Acute hypoxic respiratory failure -CCM consulted, appreciate recommendations - s/p trach on 06/12 -06/15 T piece trials started, currently on T-piece -see RT notes for titration -ABG/CXR -Continuous SP02 monitoring -Scopalamine and robinul for secretions -VAP bundle GI: protein -aspen malnutrition -Ntr consult for TF -PEG placed 06/12 -PPI- Pepcid -BR: senokot, maalox, colace; prn dulcolex -BM: 06/16 : Acute renal injury likely 2/2 to vasomotor nephrology -Renal function remains stable -strict I&O -daily weights -purwick -Trend BMP -Monitor and replete electrolytes as needed -FWF 250 q 4hours -hypernatremia and Cr slightly improving Endo: Hyperglycemia, h/o DM -SSI -Lantus, titrate as needed -Avoid hypoglycemia -accucheck q6 Heme: Leukocytosis -CTA chest without evidence of PE -IV heparin d/t afib -transitioned to PO Eliquis -Trend CBC -Transfuse for hgb<7 ID: Sepsis, Bilateral Lower Lobe Infiltrates -COVID 19 PCR (-) -s/p cefepime 05/25-05/29 -admit cxr with infiltrates, CTA chest with dense dependent con solidation/atelectasis in lungs -Monitor temp and WBC curve -noted spike in temp overnight -CXR, Blood culture, UA, 06/19Sputum culture pos. Ecoli -BC/UC/Tracheal aspirate NGTD from 05/25 -Covid 19 PCR negative -06/07 CRP 28.90 and procal 0.36 -Tracheal aspirate gram-negative rods, empiric antibiotics cefepime ordered, follow culture sensitivities - Cefepine switch to rocephin per sensitivity -Consider ID evaluation if febrile The high probability of a clinically significant, sudden or life threatening deterioration of the [multiple] system(s) required my full and direct attention, intervention and personal management. The aggregate critical care time was [60] minutes. This time is in addition to time spent performing reported procedures but includes the following: [x] Data Review and interpretation [x] Patient assessment and monitoring of vital signs [x] Documentation [x] Medication orders and management Disposition Plan: LTACH pending Total Time Spent with Patient (Minutes): 60 History Interval history: Patient seen and examined at the bedside. Neuro status unchanged, awake and opening eyes spontaneously, but not following any commands. No significant events overnight. Hospitalist Physical - Constitutional Vitals: Temp Pulse Resp BP Pulse Ox 97.5 F L 82 29 H 137/55 100 06/20/21 11:56 06/20/21 14:04 06/20/21 11:00 06/20/21 14:04 06/20/21 11:58 General appearance: Present: no acute distress, well-nourished - EENT Eyes: Present: PERRL - Respiratory Respiratory effort: normal Respiratory: bilateral: rhonchi - Cardiovascular Rhythm: regular Heart Sounds: Present: S1 & S2 - Extremities Extremities: pulses intact, pulses symmetrical Extremity abnormal: edema - Peripheral Assessment Generalized Edema Type: Non-pitting Edema Degree: 1+ Capillary Refill: < 3 seconds Skin Temperature: Warm Peripheral Pulses: within normal limits - Abdominal General gastrointestinal: soft, non-tender, normal bowel sounds - Integumentary Integumentary: Present: clear, warm, dry - Psychiatric Psychiatric: other ([facility]) - Neurologic Neurologic: other ([facility]) - Allied Health Allied health notes reviewed: nursing HEART Score - HEART Score Troponin: Troponin T 0.226 ng/mL (0.00-0.029) H* D 05/25/21 15:19 Results - Labs CBC & Chem 7: 06/20/21 04:18 06/20/21 13:30 Labs: Laboratory Last Values WBC 9.3 K/mm3 (4.5-11.0) 06/20/21 04:18 RBC 2.26 M/mm3 (3.65-5.03) L 06/20/21 04:18 Hgb 7.7 gm/dl (10.1-14.3) L 06/20/21 04:18 Hct 22.9 % (30.3-42.9) L 06/20/21 04:18 MCV 101 fl (79-97) H 06/20/21 04:18 MCH 34 pg (28-32) H 06/20/21 04:18 MCHC 34 % (30-34) 06/20/21 04:18 RDW 14.7 % (13.2-15.2) 06/20/21 04:18 Plt Count 291 K/mm3 (140-440) 06/20/21 04:18 Lymph % (Auto) 17.6 % (13.4-35.0) 06/19/21 06:20 [place] % (Auto) 11.3 % (0.0-7.3) H 06/19/21 06:20 Eos % (Auto) 2.8 % (0.0-4.3) 06/19/21 06:20 Baso % (Auto) 0.5 % (0.0-1.8) 06/19/21 06:20 Lymph # (Auto) 1.5 K/mm3 (1.2-5.4) 06/19/21 06:20 [place] # (Auto) 1.0 K/mm3 (0.0-0.8) H 06/19/21 06:20 Eos # (Auto) 0.2 K/mm3 (0.0-0.4) 06/19/21 06:20 Baso # (Auto) 0.0 K/mm3 (0.0-0.1) 06/19/21 06:20 Add Manual Diff Complete 06/08/21 04:25 Total Counted 100 06/08/21 04:25 Seg Neutrophils % 67.8 % (40.0-70.0) 06/19/21 06:20 Seg Neuts % (Manual) 76.0 % (40.0-70.0) H 06/08/21 04:25 Band Neutrophils % 4.0 % 06/08/21 04:25 Lymphocytes % (Manual) 6.0 % (13.4-35.0) L 06/08/21 04:25 Monocytes % (Manual) 8.0 % (0.0-7.3) H 06/08/21 04:25 Eosinophils % (Manual) 1.0 % (0.0-4.3) 06/08/21 04:25 Metamyelocytes % 3.0 % 06/08/21 04:25 Myelocytes % 2.0 % 06/08/21 04:25 Nucleated RBC % Not Reportable 06/08/21 04:25 Seg Neutrophils # 5.7 K/mm3 (1.8-7.7) 06/19/21 06:20 Seg Neutrophils # Man 12.0 K/mm3 (1.8-7.7) H 06/08/21 04:25 Band Neutrophils # 0.6 K/mm3 06/08/21 04:25 Lymphocytes # (Manual) 0.9 K/mm3 (1.2-5.4) L 06/08/21 04:25 Abs React Lymphs (Man) 0.0 K/mm3 06/08/21 04:25 Monocytes # (Manual) 1.3 K/mm3 (0.0-0.8) H 06/08/21 04:25 Eosinophils # (Manual) 0.2 K/mm3 (0.0-0.4) 06/08/21 04:25 Basophils # (Manual) 0.0 K/mm3 (0.0-0.1) 06/08/21 04:25 Metamyelocytes # 0.5 K/mm3 06/08/21 04:25 Myelocytes # 0.3 K/mm3 06/08/21 04:25 Promyelocytes # 0.0 K/mm3 06/08/21 04:25 Blast Cells # 0.0 K/mm3 06/08/21 04:25 WBC Morphology Not Reportable 06/08/21 04:25 Hypersegmented Neuts Not Reportable 06/08/21 04:25 Hyposegmented Neuts Not Reportable 06/08/21 04:25 Hypogranular Neuts Not Reportable 06/08/21 04:25 Smudge Cells Not Reportable 06/08/21 04:25 Toxic Granulation Not Reportable 06/08/21 04:25 Toxic Vacuolation Not Reportable 06/08/21 04:25 Dohle Bodies Not Reportable 06/08/21 04:25 Pelger-Huet Anomaly Not Reportable 06/08/21 04:25 Peter Rods Not Reportable 06/08/21 04:25 Platelet Estimate Consistent w auto 06/08/21 04:25 Clumped Platelets Not Reportable 06/08/21 04:25 Plt Clumps, EDTA Not Reportable 06/08/21 04:25 Large Platelets Not Reportable 06/08/21 04:25 Giant Platelets Not Reportable 06/08/21 04:25 Platelet Satelliting Not Reportable 06/08/21 04:25 Plt Morphology Comment Not Reportable 06/08/21 04:25 RBC Morphology Not Reportable 06/08/21 04:25 Dimorphic RBCs Not Reportable 06/08/21 04:25 Polychromasia Not Reportable 06/08/21 04:25 Hypochromasia Not Reportable 06/08/21 04:25 Poikilocytosis Not Reportable 06/08/21 04:25 Anisocytosis Not Reportable 06/08/21 04:25 Microcytosis Not Reportable 06/08/21 04:25 Macrocytosis Not Reportable 06/08/21 04:25 Spherocytes Not Reportable 06/08/21 04:25 Pappenheimer Bodies Not Reportable 06/08/21 04:25 Sickle Cells Not Reportable 06/08/21 04:25 Target Cells Not Reportable 06/08/21 04:25 Tear Drop Cells Not Reportable 06/08/21 04:25 Ovalocytes Not Reportable 06/08/21 04:25 Helmet Cells Not Reportable 06/08/21 04:25 [place]ib[place] Bodies Not Reportable 06/08/21 04:25 [place] Rings Not Reportable 06/08/21 04:25 [place] Cells Not Reportable 06/08/21 04:25 Bite Cells Not Reportable 06/08/21 04:25 Crenated Cell Not Reportable 06/08/21 04:25 Elliptocytes Not Reportable 06/08/21 04:25 Acanthocytes (Spur) Not Reportable 06/08/21 04:25 Rouleaux Not Reportable 06/08/21 04:25 Hemoglobin C Crystals Not Reportable 06/08/21 04:25 Schistocytes Not Reportable 06/08/21 04:25 Malaria parasites Not Reportable 06/08/21 04:25 Shravan Bodies Not Reportable 06/08/21 04:25 Hem Pathologist Commnt No 06/08/21 04:25 PT 14.5 Sec. (12.2-14.9) 06/16/21 18:51 INR 1.08 (0.87-1.13) 06/16/21 18:51 APTT 64.1 Sec. (24.2-36.6) H* 06/16/21 18:51 D-Dimer > 95738 ng/mlDDU (0-234) H 05/25/21 09:21 Heparin Anti-Xa Level 1.53 U.I./ml (0.3-0.7) H 06/17/21 04:19 ABG pH 7.471 (7.320-7.450) H 06/15/21 10:19 POC ABG pCO2 40.4 mmHg (32.0-48.0) 06/15/21 10:19 ABG pCO2 30.3 mm Hg 05/29/21 05:28 POC ABG pO2 90.1 mmHg (83-108) 06/15/21 10:19 ABG pO2 96.2 mm Hg (80.0-90.0) H 05/29/21 05:28 POC ABG HCO3 28.8 06/15/21 10:19 ABG HCO3 24.0 mmol/L (20.0-26.0) 05/29/21 05:28 ABG O2 Saturation 97.4 (0-100) 06/15/21 10:19 ABG O2 Content 10.3 (0.0-44) 05/29/21 05:28 POC ABG Base Excess 4.8 06/15/21 10:19 ABG Base Excess 1.2 mmol/L (-2.0-3.0) 05/29/21 05:28 ABG Hemoglobin 8.6 (12.0-17.5) L 06/13/21 11:07 ABG Oxyhemoglobin 96.0 (94-98) 06/15/21 10:19 ABG Carboxyhemoglobin 1.6 % (0.0-5.0) 05/29/21 05:28 ABG Methemoglobin 0.3 (0.0-1.5) 06/13/21 11:07 ABG Sodium 144.0 mmol/L (136.0-145.0) 06/13/21 11:07 ABG Potassium 4.7 mmol/L (3.40-4.50) H 06/13/21 11:07 ABG Chloride 107.0 mmol/L (98-107) 06/13/21 11:07 ABG Glucose 277 mg/dL (65-95) H 06/13/21 11:07 Oxyhemoglobin 96.0 % (95.0-99.0) 05/29/21 05:28 Carboxyhemoglobin 1.5 (0.5-1.5) 06/15/21 10:19 FiO2 30 % 05/29/21 05:28 FiO2 % 40 06/15/21 10:19 Sodium 142 mmol/L (137-145) 06/20/21 13:30 Potassium 4.8 mmol/L (3.6-5.0) 06/20/21 13:30 Chloride 105.0 mmol/L (98-107) 06/20/21 13:30 Carbon Dioxide 24 mmol/L (22-30) 06/20/21 13:30 Anion Gap 18 mmol/L 06/20/21 13:30 BUN 31 mg/dL (7-17) H 06/20/21 13:30 Creatinine 1.1 mg/dL (0.6-1.2) 06/20/21 13:30 Estimated GFR 60 ml/min 06/20/21 13:30 BUN/Creatinine Ratio 28 % 06/20/21 13:30 Glucose 196 mg/dL (65-100) H 06/20/21 13:30 POC Glucose 177 mg/dL (70-105) H 06/20/21 11:22 Lactic Acid 2.30 mmol/L (0.7-2.0) H* 05/26/21 05:49 Calcium 8.4 mg/dL (8.4-10.2) 06/20/21 13:30 Phosphorus 5.40 mg/dL (2.5-4.5) H 06/16/21 04:31 Magnesium 2.40 mg/dL (1.7-2.3) H 06/19/21 06:20 Ferritin 321.6 ng/mL (10.0-200.0) H 05/25/21 09:21 Total Bilirubin 0.50 mg/dL (0.1-1.2) 06/13/21 04:34 Direct Bilirubin < 0.2 mg/dL (0-0.2) 05/25/21 09:21 Indirect Bilirubin 0.2 mg/dL 05/25/21 09:21 AST 69 units/L (5-40) H 06/13/21 04:34 ALT 74 units/L (7-56) H 06/13/21 04:34 Alkaline Phosphatase 197 units/L (35-129) H 06/13/21 04:34 Lactate Dehydrogenase 445 units/L (91-180) H 05/25/21 09:21 Troponin T 0.226 ng/mL (0.00-0.029) H* D 05/25/21 15:19 C-Reactive Protein 28.90 mg/dL (0.00-1.30) H 06/07/21 14:52 NT-Pro-B Natriuret Pep 173.2 pg/mL (0-900) 05/25/21 09: Total Protein 7.5 g/dL (6.3-8.2) 06/13/21 04:34 Albumin 3.0 g/dL (3.9-5) L 06/13/21 04:34 Albumin/Globulin Ratio 0.7 % 06/13/21 04:34 Triglycerides 124 mg/dL (2-149) 05/30/21 11:19 Cholesterol 198 mg/dL (50-199) 05/25/21 15:19 LDL Cholesterol Direct 80 mg/dL (50-130) 05/25/21 15:19 HDL Cholesterol 64 mg/dL (40-59) H 05/25/21 15:19 Cholesterol/HDL Ratio 3.09 % 05/25/21 15:19 Procalcitonin 0.36 ng/mL (<0.15) 06/07/21 14:52 Arterial Blood Glucose 277 mg/dL (65-95) H 06/13/21 11:07 Arterial Blood Ionized Calcium 4.6 mg/dL (4.6-5.3) 06/02/21 04:13 Urine Color Yellow (Yellow) 06/15/21 Unknown Urine Turbidity Slightly-cloudy (Clear) 06/15/21 Unknown Urine pH 6.0 (5.0-7.0) 06/15/21 Unknown Ur Specific [place] 1.013 (1.003-1.030) 06/15/21 Unknown Urine Protein <15 mg/dl mg/dL (Negative) 06/15/21 Unknown Urine Glucose (UA) Neg mg/dL (Negative) 06/15/21 Unknown Urine Ketones Neg mg/dL (Negative) 06/15/21 Unknown Urine Blood Mod (Negative) 06/15/21 Unknown Urine Nitrite Neg (Negative) 06/15/21 Unknown Ur Reducing Substances Not Reportable 06/15/21 Unknown Urine Bilirubin Neg (Negative) 06/15/21 Unknown Urine Ictotest Not Reportable 06/15/21 Unknown Urine Urobilinogen < 2.0 mg/dL (<2.0) 06/15/21 Unknown Ur Leukocyte Esterase Mod (Negative) 06/15/21 Unknown Urine WBC (Auto) 3.0 /HPF (0.0-6.0) 06/15/21 Unknown Urine RBC (Auto) 3.0 /HPF (0.0-6.0) 06/15/21 Unknown U Epithel Cells (Auto) 2.0 /HPF (0-13.0) 06/15/21 Unknown Urine Bacteria (Auto) 1+ /HPF (Negative) 06/15/21 Unknown Urine Mucus Few /HPF 06/15/21 Unknown Urine Yeast (Budding) Few /HPF 06/15/21 Unknown Urine Osmolality 430 Mosm/kg 06/15/21 Unknown Urine Creatinine 74.7 mg/dL (0.1-20.0) H 06/15/21 Unknown Urine Sodium 14 mmol/L 06/15/21 Unknown Coronavirus (PCR) Negative (Negative) 05/30/21 08:15 Blood Type O POSITIVE 06/15/21 08:00 Antibody Screen Negative 06/15/21 08:00 Microbiology: Microbiology 06/15/21 07:56 Peripheral/Venous Blood Culture - Final NO GROWTH AFTER 5 DAYS 06/15/21 07:56 Peripheral/Venous Blood Culture - Final NO GROWTH AFTER 5 DAYS Tan/IV: Voiding Method External Female Catheter Active Medications - Current Medications Current Medications: Generic Name Dose Route Start Last Admin Trade Name Freq PRN Reason Stop Dose Admin Acetaminophen 650 mg 05/25/21 13:48 05/28/21 04:14 Acetaminophen 325 Mg Tab PO 650 mg Q6H PRN Administration Pain MILD(1-3)/Fever >100.5/SOTOMAYOR Acetylcysteine 200 mg 06/20/21 16:00 Acetylcysteine 20% 200 Mg/1 Ml *For Inhalation Use* INHALATION 06/25/21 15:59 Q8HRT ABDIRAHMAN Lipase/Protease/Amylase 1 each 05/26/21 10:00 Lipase 10,500/Protease 25,000/Amylase 43,750 (Units) Dr Munguia FEEDTUBE PRN PRN For Clogged Feeding Tube Apixaban 5 mg 06/16/21 22:00 06/20/21 09:47 Apixaban 5 Mg Tab PO 5 mg Q12HR ABDIRAHMAN Administration Protocol Bisacodyl 10 mg 06/08/21 10:00 Bisacodyl 10 Mg Rect Supp DE QDAY PRN Constipation Dextrose 50 ml 05/28/21 14:28 Dextrose 50% In Water (25gm) 50 Ml Syringe IV Q30MIN PRN Hypoglycemia Protocol Docusate Sodium 100 mg 06/08/21 10:00 06/20/21 09:47 Docusate Sodium 100 Mg/10 Ml Oral Liqd PO 100 mg BID ABDIRAHMAN Administration Doxazosin Mesylate 2 mg 06/01/21 12:00 06/20/21 09:47 Doxazosin 1 Mg Tab PO 2 mg BID ABDIRAHMAN Administration Famotidine 20 mg 05/29/21 10:00 06/20/21 09:50 Famotidine 20 Mg Tab FEEDTUBE 20 mg BID ABDIRAHMAN Administration Hydralazine HCl 10 mg 06/01/21 11:43 06/07/21 17:23 Hydralazine 20 Mg/1 Ml Inj IV 10 mg Q4HR PRN Administration SBP >160 Hydralazine HCl 50 mg 06/03/21 22:00 06/20/21 14:04 Hydralazine 25 Mg Tab PO 50 mg Q8HR ABDIRAHMAN Administration Hydrophilic Ointment 1 applic 05/25/21 19:04 Lip Therapy Vaseline TP Q2HR PRN Dry Lips Ceftriaxone Sodium 2 gm in 100 mls @ 200 mls/hr 06/20/21 10:00 06/20/21 09:43 Rocephin/Ns 2 Gm/100 Ml IV 06/23/21 10:29 200 mls/hr Q24H ABDIRAHMAN Administration Protocol Insulin Glargine 30 units 06/15/21 22:00 06/19/21 21:49 Insulin Glargine 100 Units/Ml SUB-Q 30 units QHS ABDIRAHMAN Administration Insulin Human Lispro 0 unit 05/29/21 12:00 06/20/21 11:58 Insulin Lispro 100 Unit/Ml SUB-Q 3 unit Q6HR ABDIRAHMAN Administration Protocol Labetalol HCl 300 mg 06/03/21 13:40 06/20/21 09:47 Labetalol 100 Mg Tab PO 300 mg BID ABDIRAHMAN Administration Levetiracetam 250 mg 06/01/21 22:00 06/20/21 09:49 Levetiracetam 500 Mg/5 Ml Oral Liqd FEEDTUBE 250 mg Q12HR ABDIRAHMAN Administration Multi-Ingred Cream/Lotion/Oil/Oint 1 applic 05/25/21 19:04 Mineral Oil/Petrolatum, White Ophth Oint 3.5 Gm OU Q4HR PRN Dry Eye(s) Polyethylene Glycol 17 gm 06/05/21 11:00 06/20/21 09:49 Polyethylene Glycol 3350 17 Gm Powder PO 17 gm QDAY ABDIRAHMAN Administration Scopolamine 1 each 06/20/21 10:00 06/20/21 09:48 Scopolamine Transdermal Patch 72 Hr TD 1 each Q3D ABDIRAHMAN Administration Senna/Docusate Sodium 1 tab 05/25/21 22:00 06/20/21 09:47 Sennosides/Docusate Sodium 8.6/50 Mg Tab FEEDTUBE 1 tab BID ABDIRAHMAN Administration Simple Syrup 15 ml 05/26/21 10:00 Simple Syrup 15 Ml FEEDTUBE PRN PRN Hypoglycemia Simple Syrup 30 ml 05/26/21 10:00 Simple Syrup 15 Ml FEEDTUBE PRN PRN Hypoglycemia Sodium Bicarbonate 325 mg 05/26/21 10:00 Sodium Bicarbonate 325 Mg Tab FEEDTUBE PRN PRN For Clogged Feeding Tube Sodium Chloride 10 ml 05/25/21 22:00 06/20/21 09:49 Sodium Chloride 0.9% 10 Ml Flush Syringe IV 10 ml BID ABDIRAHMAN Administration Sodium Chloride 10 ml 05/25/21 13:48 06/04/21 03:57 Sodium Chloride 0.9% 10 Ml Flush Syringe IV 10 ml PRN PRN Administration LINE FLUSH Valsartan 160 mg 06/11/21 10:00 06/20/21 09:46 Valsartan 160mg Tab PO 160 mg BID ABDIRAHMAN Administration Nutrition/Malnutrition Assess - Dietary Evaluation Nutrition/Malnutrition Findings: Nutrition Notes Start: 05/26/21 09:00 Freq: Status: Active Protocol: Document 06/19/21 15:49 GB (Rec: 06/19/21 15:57 GB [id number]) Nutrition Notes Initial or Follow up Reassessment Current Diagnosis COPD,Diabetes,Sepsis, Hypertension,Respiratory Failure Other Pertinent Diagnosis cardiac arrest, seizure disorder, (06/12: Trach/PEG) Current Diet NPO, Tube feeding glucerna 1.2 @50 Labs/Tests 06/19: Na 148, BUN 26, glucose 109, Mg 2.4 Pertinent Medications reviewed Height 5 ft 4 in Weight 63 kg [place] Body Weight (kg) 54.54 BMI 23.8 Weight change and time frame -6.6% since admission No new weights after 05/30 Weight Status Appropriate Subjective/Other Information 06/12: Trach/PEG 06/12: TF formula changed to glucerna 1.2 r/t altered labs and now with trach/peg Last BM 06/17 06/19: waiting for placement SNF vs Home w/home health depending on T-piece tolerance Percent of energy/protein needs met: TF goal rate meets 75% or greater of estimated energy needs Burn Absent Trauma Absent GI Symptoms None Difficulty In Swallowing Food Allergy No Current % PO Other Minimum of two criteria No #1 Nutrition Diagnosis Inadequate oral intake Comments: 06/02: On vent. TF continues. 06/07: Ventilation continues, TF continues. 06/13: Trach/PEG on 06/12, change formula to glucerna 1.2 06/19: T/P continues, TF glucerna 1.2 @50ml/hr Etiology ARF As Evidenced by Signs and Symptoms pt on vent and unable to consume PO Diagnosis Progress(for reassessment Continues documentation) Is patient on ventilator? Yes Is Patient Ambulatory and/or Out of Bed No REE-([facility]-confined to bed) 1385.676 Kcal/Kg value to use for calculation 23 Approximate Energy Requirements Using 1449 kcal/Kg Calculation Used for Recommendations Kcal/kg Additional Notes Protein: (1-1.5g/kg @63kg) 63- 95g Fluid: 1 ml/kcal or per MD Nutrition Intervention Change Diet Order: Continue NPO Nutrition Support: Glucerna 1.2 at 50 ml/hr Flush 75 ml q4h 06/07: continues 06/13: Trach/PEG on 06/12, change formula to glucerna 1.2 06/19: Glucerna 1.2 at 50ml/hr continues Kcal 1,440 Protein (gm) 72 Goal #1 Meet 75% or greater of protein and energy needs via TF 06/13: TF at goal meets 100% estimated energy needs: met, continues 06/19: met continues Goal #2 Change TF formula. Complete current vital 1.2 bottle, change to glucerna 1.2 r/t DM and related lab results 06/19: met, resolved Follow-Up By: 06/26/21 Additional Comments f/u: TF tolerance, new weights available <KASHIF MOORE R - Last Filed: 06/22/21 09:49> Assessment and Plan Assessment and plan: I saw and evaluated the patient on 06/20/21. I agree with the findings and the plan of care as documented in the Nurse Practitioner's~note, patient waiting on pending LTAC placement. Guarded prognosis. Hospitalist Physical - Constitutional Vitals: Temp Pulse Resp BP Pulse Ox 100.0 F H 94 H 18 151/66 100 06/22/21 08:00 06/22/21 08:10 06/22/21 08:10 06/22/21 08:10 06/22/21 08:10 HEART Score - HEART Score Troponin: Troponin T 0.226 ng/mL (0.00-0.029) H* D 05/25/21 15:19 Results - Labs CBC & Chem 7: 06/22/21 04:36 06/22/21 04:36 Labs: Laboratory Last Values WBC 8.9 K/mm3 (4.5-11.0) 06/22/21 04:36 RBC 2.38 M/mm3 (3.65-5.03) L 06/22/21 04:36 Hgb 8.0 gm/dl (10.1-14.3) L 06/22/21 04:36 Hct 23.7 % (30.3-42.9) L 06/22/21 04:36 MCV 100 fl (79-97) H 06/22/21 04:36 MCH 33 pg (28-32) H 06/22/21 04:36 MCHC 34 % (30-34) 06/22/21 04:36 RDW 14.7 % (13.2-15.2) 06/22/21 04:36 Plt Count 348 K/mm3 (140-440) 06/22/21 04:36 Lymph % (Auto) 18.7 % (13.4-35.0) 06/21/21 08:10 [place] % (Auto) 9.3 % (0.0-7.3) H 06/21/21 08:10 Eos % (Auto) 2.0 % (0.0-4.3) 06/21/21 08:10 Baso % (Auto) 0.3 % (0.0-1.8) 06/21/21 08:10 Lymph # (Auto) 1.9 K/mm3 (1.2-5.4) 06/21/21 08:10 [place] # (Auto) 0.9 K/mm3 (0.0-0.8) H 06/21/21 08:10 Eos # (Auto) 0.2 K/mm3 (0.0-0.4) 06/21/21 08:10 Baso # (Auto) 0.0 K/mm3 (0.0-0.1) 06/21/21 08:10 Add Manual Diff Complete 06/08/21 04:25 Total Counted 100 06/08/21 04:25 Seg Neutrophils % 69.7 % (40.0-70.0) 06/21/21 08:10 Seg Neuts % (Manual) 76.0 % (40.0-70.0) H 06/08/21 04:25 Band Neutrophils % 4.0 % 06/08/21 04:25 Lymphocytes % (Manual) 6.0 % (13.4-35.0) L 06/08/21 04:25 Monocytes % (Manual) 8.0 % (0.0-7.3) H 06/08/21 04:25 Eosinophils % (Manual) 1.0 % (0.0-4.3) 06/08/21 04:25 Metamyelocytes % 3.0 % 06/08/21 04:25 Myelocytes % 2.0 % 06/08/21 04:25 Nucleated RBC % Not Reportable 06/08/21 04:25 Seg Neutrophils # 7.0 K/mm3 (1.8-7.7) 06/21/21 08:10 Seg Neutrophils # Man 12.0 K/mm3 (1.8-7.7) H 06/08/21 04:25 Band Neutrophils # 0.6 K/mm3 06/08/21 04:25 Lymphocytes # (Manual) 0.9 K/mm3 (1.2-5.4) L 06/08/21 04:25 Abs React Lymphs (Man) 0.0 K/mm3 06/08/21 04:25 Monocytes # (Manual) 1.3 K/mm3 (0.0-0.8) H 06/08/21 04:25 Eosinophils # (Manual) 0.2 K/mm3 (0.0-0.4) 06/08/21 04:25 Basophils # (Manual) 0.0 K/mm3 (0.0-0.1) 06/08/21 04:25 Metamyelocytes # 0.5 K/mm3 06/08/21 04:25 Myelocytes # 0.3 K/mm3 06/08/21 04:25 Promyelocytes # 0.0 K/mm3 06/08/21 04:25 Blast Cells # 0.0 K/mm3 06/08/21 04:25 WBC Morphology Not Reportable 06/08/21 04:25 Hypersegmented Neuts Not Reportable 06/08/21 04:25 Hyposegmented Neuts Not Reportable 06/08/21 04:25 Hypogranular Neuts Not Reportable 06/08/21 04:25 Smudge Cells Not Reportable 06/08/21 04:25 Toxic Granulation Not Reportable 06/08/21 04:25 Toxic Vacuolation Not Reportable 06/08/21 04:25 Dohle Bodies Not Reportable 06/08/21 04:25 Pelger-Huet Anomaly Not Reportable 06/08/21 04:25 Peter Rods Not Reportable 06/08/21 04:25 Platelet Estimate Consistent w auto 06/08/21 04:25 Clumped Platelets Not Reportable 06/08/21 04:25 Plt Clumps, EDTA Not Reportable 06/08/21 04:25 Large Platelets Not Reportable 06/08/21 04:25 Giant Platelets Not Reportable 06/08/21 04:25 Platelet Satelliting Not Reportable 06/08/21 04:25 Plt Morphology Comment Not Reportable 06/08/21 04:25 RBC Morphology Not Reportable 06/08/21 04:25 Dimorphic RBCs Not Reportable 06/08/21 04:25 Polychromasia Not Reportable 06/08/21 04:25 Hypochromasia Not Reportable 06/08/21 04:25 Poikilocytosis Not Reportable 06/08/21 04:25 Anisocytosis Not Reportable 06/08/21 04:25 Microcytosis Not Reportable 06/08/21 04:25 Macrocytosis Not Reportable 06/08/21 04:25 Spherocytes Not Reportable 06/08/21 04:25 Pappenheimer Bodies Not Reportable 06/08/21 04:25 Sickle Cells Not Reportable 06/08/21 04:25 Target Cells Not Reportable 06/08/21 04:25 Tear Drop Cells Not Reportable 06/08/21 04:25 Ovalocytes Not Reportable 06/08/21 04:25 Helmet Cells Not Reportable 06/08/21 04:25 Toribio-[place] Bodies Not Reportable 06/08/21 04:25 [place] Rings Not Reportable 06/08/21 04:25 Lin Cells Not Reportable 06/08/21 04:25 Bite Cells Not Reportable 06/08/21 04:25 Crenated Cell Not Reportable 06/08/21 04:25 Elliptocytes Not Reportable 06/08/21 04:25 Acanthocytes (Spur) Not Reportable 06/08/21 04:25 Rouleaux Not Reportable 06/08/21 04:25 Hemoglobin C Crystals Not Reportable 06/08/21 04:25 Schistocytes Not Reportable 06/08/21 04:25 Malaria parasites Not Reportable 06/08/21 04:25 Shravan Bodies Not Reportable 06/08/21 04:25 Hem Pathologist Commnt No 06/08/21 04:25 PT 14.5 Sec. (12.2-14.9) 06/16/21 18:51 INR 1.08 (0.87-1.13) 06/16/21 18:51 APTT 64.1 Sec. (24.2-36.6) H* 06/16/21 18:51 D-Dimer > 43487 ng/mlDDU (0-234) H 05/25/21 09:21 Heparin Anti-Xa Level 1.53 U.I./ml (0.3-0.7) H 06/17/21 04:19 ABG pH 7.471 (7.320-7.450) H 06/15/21 10:19 POC ABG pCO2 40.4 mmHg (32.0-48.0) 06/15/21 10:19 ABG pCO2 30.3 mm Hg 05/29/21 05:28 POC ABG pO2 90.1 mmHg (83-108) 06/15/21 10:19 ABG pO2 96.2 mm Hg (80.0-90.0) H 05/29/21 05:28 POC ABG HCO3 28.8 06/15/21 10:19 ABG HCO3 24.0 mmol/L (20.0-26.0) 05/29/21 05:28 ABG O2 Saturation 97.4 (0-100) 06/15/21 10:19 ABG O2 Content 10.3 (0.0-44) 05/29/21 05:28 POC ABG Base Excess 4.8 06/15/21 10:19 ABG Base Excess 1.2 mmol/L (-2.0-3.0) 05/29/21 05:28 ABG Hemoglobin 8.6 (12.0-17.5) L 06/13/21 11:07 ABG Oxyhemoglobin 96.0 (94-98) 06/15/21 10:19 ABG Carboxyhemoglobin 1.6 % (0.0-5.0) 05/29/21 05:28 ABG Methemoglobin 0.3 (0.0-1.5) 06/13/21 11:07 ABG Sodium 144.0 mmol/L (136.0-145.0) 06/13/21 11:07 ABG Potassium 4.7 mmol/L (3.40-4.50) H 06/13/21 11:07 ABG Chloride 107.0 mmol/L (98-107) 06/13/21 11:07 ABG Glucose 277 mg/dL (65-95) H 06/13/21 11:07 Oxyhemoglobin 96.0 % (95.0-99.0) 05/29/21 05:28 Carboxyhemoglobin 1.5 (0.5-1.5) 06/15/21 10:19 FiO2 30 % 05/29/21 05:28 FiO2 % 40 06/15/21 10:19 Sodium 143 mmol/L (137-145) 06/22/21 04:36 Potassium 4.7 mmol/L (3.6-5.0) 06/22/21 04:36 Chloride 104.6 mmol/L (98-107) 06/22/21 04:36 Carbon Dioxide 24 mmol/L (22-30) 06/22/21 04:36 Anion Gap 19 mmol/L 06/22/21 04:36 BUN 36 mg/dL (7-17) H 06/22/21 04:36 Creatinine 1.0 mg/dL (0.6-1.2) 06/22/21 04:36 Estimated GFR > 60 ml/min 06/22/21 04:36 BUN/Creatinine Ratio 36 % 06/22/21 04:36 Glucose 167 mg/dL (65-100) H 06/22/21 04:36 POC Glucose 160 mg/dL (70-105) H 06/22/21 05:22 Lactic Acid 2.30 mmol/L (0.7-2.0) H* 05/26/21 05:49 Calcium 8.5 mg/dL (8.4-10.2) 06/22/21 04:36 Phosphorus 5.40 mg/dL (2.5-4.5) H 06/16/21 04:31 Magnesium 2.40 mg/dL (1.7-2.3) H 06/19/21 06:20 Ferritin 321.6 ng/mL (10.0-200.0) H 05/25/21 09:21 Total Bilirubin 0.20 mg/dL (0.1-1.2) 06/21/21 04:07 Direct Bilirubin < 0.2 mg/dL (0-0.2) 05/25/21 09:21 Indirect Bilirubin 0.2 mg/dL 05/25/21 09:21 AST 79 units/L (5-40) H 06/21/21 04:07 ALT 79 units/L (7-56) H 06/21/21 04:07 Alkaline Phosphatase 159 units/L (35-129) H 06/21/21 04:07 Lactate Dehydrogenase 445 units/L (91-180) H 05/25/21 09:21 Troponin T 0.226 ng/mL (0.00-0.029) H* D 05/25/21 15:19 C-Reactive Protein 28.90 mg/dL (0.00-1.30) H 06/07/21 14:52 NT-Pro-B Natriuret Pep 173.2 pg/mL (0-900) 05/25/21 09:21 Total Protein 6.5 g/dL (6.3-8.2) 06/21/21 04:07 Albumin 2.6 g/dL (3.9-5) L 06/21/21 04:07 Albumin/Globulin Ratio 0.7 % 06/21/21 04:07 Triglycerides 124 mg/dL (2-149) 05/30/21 11:19 Cholesterol 198 mg/dL (50-199) 05/25/21 15:19 LDL Cholesterol Direct 80 mg/dL (50-130) 05/25/21 15:19 HDL Cholesterol 64 mg/dL (40-59) H 05/25/21 15:19 Cholesterol/HDL Ratio 3.09 % 05/25/21 15:19 Procalcitonin 0.36 ng/mL (<0.15) 06/07/21 14:52 Arterial Blood Glucose 277 mg/dL (65-95) H 06/13/21 11:07 Arterial Blood Ionized Calcium 4.6 mg/dL (4.6-5.3) 06/02/21 04:13 Urine Color Yellow (Yellow) 06/15/21 Unknown Urine Turbidity Slightly-cloudy (Clear) 06/15/21 Unknown Urine pH 6.0 (5.0-7.0) 06/15/21 Unknown Ur Specific [place] 1.013 (1.003-1.030) 06/15/21 Unknown Urine Protein <15 mg/dl mg/dL (Negative) 06/15/21 Unknown Urine Glucose (UA) Neg mg/dL (Negative) 06/15/21 Unknown Urine Ketones Neg mg/dL (Negative) 06/15/21 Unknown Urine Blood Mod (Negative) 06/15/21 Unknown Urine Nitrite Neg (Negative) 06/15/21 Unknown Ur Reducing Substances Not Reportable 06/15/21 Unknown Urine Bilirubin Neg (Negative) 06/15/21 Unknown Urine Ictotest Not Reportable 06/15/21 Unknown Urine Urobilinogen < 2.0 mg/dL (<2.0) 06/15/21 Unknown Ur Leukocyte Esterase Mod (Negative) 06/15/21 Unknown Urine WBC (Auto) 3.0 /HPF (0.0-6.0) 06/15/21 Unknown Urine RBC (Auto) 3.0 /HPF (0.0-6.0) 06/15/21 Unknown U Epithel Cells (Auto) 2.0 /HPF (0-13.0) 06/15/21 Unknown Urine Bacteria (Auto) 1+ /HPF (Negative) 06/15/21 Unknown Urine Mucus Few /HPF 06/15/21 Unknown Urine Yeast (Budding) Few /HPF 06/15/21 Unknown Urine Osmolality 430 Mosm/kg 06/15/21 Unknown Urine Creatinine 74.7 mg/dL (0.1-20.0) H 06/15/21 Unknown Urine Sodium 14 mmol/L 06/15/21 Unknown Coronavirus (PCR) Negative (Negative) 05/30/21 08:15 Blood Type O POSITIVE 06/15/21 08:00 Antibody Screen Negative 06/15/21 08:00 Tan/IV: Voiding Method External Female Catheter Active Medications - Current Medications Current Medications: Generic Name Dose Route Start Last Admin Trade Name Freq PRN Reason Stop Dose Admin Acetaminophen 650 mg 05/25/21 13:48 05/28/21 04:14 Acetaminophen 325 Mg Tab PO 650 mg Q6H PRN Administration Pain MILD(1-3)/Fever >100.5/SOTOMAYOR Acetylcysteine 200 mg 06/20/21 16:00 06/22/21 08:27 Acetylcysteine 20% 200 Mg/1 Ml *For Inhalation Use* INHALATION 06/25/21 15:59 Not Given Q8HRT ABDIRAHMAN Lipase/Protease/Amylase 1 each 05/26/21 10:00 Lipase 10,500/Protease 25,000/Amylase 43,750 (Units) Dr Munguia FEEDTUBE PRN PRN For Clogged Feeding Tube Apixaban 5 mg 06/16/21 22:00 06/21/21 21:25 Apixaban 5 Mg Tab PO 5 mg Q12HR ABDIRAHMAN Administration Protocol Bisacodyl 10 mg 06/08/21 10:00 Bisacodyl 10 Mg Rect Supp DE QDAY PRN Constipation Dextrose 50 ml 05/28/21 14:28 Dextrose 50% In Water (25gm) 50 Ml Syringe IV Q30MIN PRN Hypoglycemia Protocol Docusate Sodium 100 mg 06/08/21 10:00 06/21/21 21:27 Docusate Sodium 100 Mg/10 Ml Oral Liqd PO Not Given BID ABDIRAHMAN Doxazosin Mesylate 2 mg 06/01/21 12:00 06/21/21 21:40 Doxazosin 1 Mg Tab PO Not Given BID ABDIRAHMAN Famotidine 20 mg 05/29/21 10:00 06/21/21 21:25 Famotidine 20 Mg Tab FEEDTUBE 20 mg BID ABDIRAHMAN Administration Hydralazine HCl 10 mg 06/01/21 11:43 06/07/21 17:23 Hydralazine 20 Mg/1 Ml Inj IV 10 mg Q4HR PRN Administration SBP >160 Hydralazine HCl 50 mg 06/03/21 22:00 06/22/21 05:00 Hydralazine 25 Mg Tab PO 50 mg Q8HR ABDIRAHMAN Administration Hydrophilic Ointment 1 applic 05/25/21 19:04 Lip Therapy Vaseline TP Q2HR PRN Dry Lips Ceftriaxone Sodium 2 gm in 100 mls @ 200 mls/hr 06/20/21 10:00 06/21/21 10:51 Rocephin/Ns 2 Gm/100 Ml IV 06/23/21 10:29 200 mls/hr Q24H ABDIRAHMAN Administration Protocol Insulin Glargine 30 units 06/15/21 22:00 06/21/21 23:11 Insulin Glargine 100 Units/Ml SUB-Q Not Given QHS ABDIRAHMAN Insulin Human Lispro 0 unit 05/29/21 12:00 06/22/21 05:42 Insulin Lispro 100 Unit/Ml SUB-Q 3 unit Q6HR ABDIRAHMAN Administration Protocol Labetalol HCl 300 mg 06/03/21 13:40 06/21/21 21:41 Labetalol 100 Mg Tab PO Not Given BID ABDIRAHMAN Levetiracetam 250 mg 06/01/21 22:00 06/21/21 21:24 Levetiracetam 500 Mg/5 Ml Oral Liqd FEEDTUBE 250 mg Q12HR ABDIRAHMAN Administration Multi-Ingred Cream/Lotion/Oil/Oint 1 applic 05/25/21 19:04 Mineral Oil/Petrolatum, White Ophth Oint 3.5 Gm OU Q4HR PRN Dry Eye(s) Polyethylene Glycol 17 gm 06/05/21 11:00 06/21/21 14:38 Polyethylene Glycol 3350 17 Gm Powder PO Not Given QDAY ABDIRAHMAN Scopolamine 1 each 06/20/21 10:00 06/20/21 09:48 Scopolamine Transdermal Patch 72 Hr TD 1 each Q3D ABDIRAHMAN Administration Senna/Docusate Sodium 1 tab 05/25/21 22:00 06/21/21 21:27 Sennosides/Docusate Sodium 8.6/50 Mg Tab FEEDTUBE Not Given BID ABDIRAHMAN Simple Syrup 15 ml 05/26/21 10:00 Simple Syrup 15 Ml FEEDTUBE PRN PRN Hypoglycemia Simple Syrup 30 ml 05/26/21 10:00 Simple Syrup 15 Ml FEEDTUBE PRN PRN Hypoglycemia Sodium Bicarbonate 325 mg 05/26/21 10:00 Sodium Bicarbonate 325 Mg Tab FEEDTUBE PRN PRN For Clogged Feeding Tube Sodium Chloride 10 ml 05/25/21 22:00 06/21/21 21:20 Sodium Chloride 0.9% 10 Ml Flush Syringe IV 10 ml BID ABDIRAHMAN Administration Sodium Chloride 10 ml 05/25/21 13:48 06/04/21 03:57 Sodium Chloride 0.9% 10 Ml Flush Syringe IV 10 ml PRN PRN Administration LINE FLUSH Valsartan 160 mg 06/11/21 10:00 06/21/21 21:40 Valsartan 160mg Tab PO Not Given BID ABDIRAHMAN Nutrition/Malnutrition Assess - Dietary Evaluation Nutrition/Malnutrition Findings: Nutrition Notes Start: 05/26/21 09:00 Freq: Status: Active Protocol: Document 06/19/21 15:49 GB (Rec: 06/19/21 15:57 GB [id number]) Nutrition Notes Initial or Follow up Reassessment Current Diagnosis COPD,Diabetes,Sepsis, Hypertension,Respiratory Failure Other Pertinent Diagnosis cardiac arrest, seizure disorder, (06/12: Trach/PEG) Current Diet NPO, Tube feeding glucerna 1.2 @50 Labs/Tests 06/19: Na 148, BUN 26, glucose 109, Mg 2.4 Pertinent Medications reviewed Height 5 ft 4 in Weight 63 kg [place] Body Weight (kg) 54.54 BMI 23.8 Weight change and time frame -6.6% since admission No new weights after 05/30 Weight Status Appropriate Subjective/Other Information 06/12: Trach/PEG 06/12: TF formula changed to glucerna 1.2 r/t altered labs and now with trach/peg Last BM 06/17 06/19: waiting for placement SNF vs Home w/home health depending on T-piece tolerance Percent of energy/protein needs met: TF goal rate meets 75% or greater of estimated energy needs Burn Absent Trauma Absent GI Symptoms None Difficulty In Swallowing Food Allergy No Current % PO Other Minimum of two criteria No #1 Nutrition Diagnosis Inadequate oral intake Comments: 06/02: On vent. TF continues. 06/07: Ventilation continues, TF continues. 06/13: Trach/PEG on 06/12, change formula to glucerna 1.2 06/19: T/P continues, TF glucerna 1.2 @50ml/hr Etiology ARF As Evidenced by Signs and Symptoms pt on vent and unable to consume PO Diagnosis Progress(for reassessment Continues documentation) Is patient on ventilator? Yes Is Patient Ambulatory and/or Out of Bed No REE-([facility]-confined to bed) 1385.676 Kcal/Kg value to use for calculation 23 Approximate Energy Requirements Using 1449 kcal/Kg Calculation Used for Recommendations Kcal/kg Additional Notes Protein: (1-1.5g/kg @63kg) 63- 95g Fluid: 1 ml/kcal or per MD Nutrition Intervention Change Diet Order: Continue NPO Nutrition Support: Glucerna 1.2 at 50 ml/hr Flush 75 ml q4h 06/07: continues 06/13: Trach/PEG on 06/12, change formula to glucerna 1.2 06/19: Glucerna 1.2 at 50ml/hr continues Kcal 1,440 Protein (gm) 72 Goal #1 Meet 75% or greater of protein and energy needs via TF 06/13: TF at goal meets 100% estimated energy needs: met, continues 06/19: met continues Goal #2 Change TF formula. Complete current vital 1.2 bottle, change to glucerna 1.2 r/t DM and related lab results 06/19: met, resolved Follow-Up By: 06/26/21 Additional Comments f/u: TF tolerance, new weights available
[2021-06-20] MEDS: INSULIN GLARGINE 100 UNITS/ML SUB-Q SCH (22:06)
[2021-06-21] MEDS: INSULIN LISPRO 100 UNIT/ML SUB-Q SCH ×4 (02:50→18:31)
[2021-06-21] MEDS: FREE WATER PO SCH ×6 (02:55→21:26)
[2021-06-21 05:16] LABS: Albumin 2.6 g/dL (3.9-5); Calcium 8.5 mg/dL (8.4-10.2)
[2021-06-21] MEDS: hydrALAZINE 25 MG TAB PO SCH ×3 (05:21→21:40)
[2021-06-21] MEDS: ACETYLCYSTEINE 20% 200 MG/1 ML *FOR INHALATION USE INHALATION SCH ×2 (05:27→05:28)
[2021-06-21 08:51] LABS: Basophils % (Auto) 0.3 % (0.0-1.8); Eosinophils # (Auto) 0.2 K/mm3 (0.0-0.4); Hematocrit 21.1 % (30.3-42.9); Hemoglobin 7.4 gm/dl (10.1-14.3); Lymphocytes # (Auto) 1.9 K/mm3 (1.2-5.4); Lymphocytes % (Auto) 18.7 % (13.4-35.0); Mean Corpuscular HGB Conc 35 % (30-34); Mean Corpuscular Volume 99 fl (79-97); Monocytes # (Auto) 0.9 K/mm3 (0.0-0.8); Monocytes % (Auto) 9.3 % (0.0-7.3); Red Blood Count 2.13 M/mm3 (3.65-5.03); Red Cell Distribution Width 14.6 % (13.2-15.2)
[2021-06-21 08:52] LABS: Platelet Count 302 K/mm3 (140-440)
[2021-06-21] MEDS: levETIRAcetam 500 MG/5 ML ORAL LIQD FEEDTUBE SCH ×2 (10:50→21:24)
[2021-06-21] MEDS: FAMOTIDINE 20 MG TAB FEEDTUBE SCH ×2 (10:50→21:25)
[2021-06-21] MEDS: APIXABAN 5 MG TAB PO SCH ×2 (10:50→21:25)
[2021-06-21] MEDS: cefTRIAXone/NS 2 GM/100 ML 2 GM/100 ML BAG IV SCH (10:51)
[2021-06-21] MEDS: VALSARTAN 160MG TAB PO SCH ×2 (10:53→21:40)
[2021-06-21] MEDS: DOXAZOSIN 1 MG TAB PO SCH ×2 (10:53→21:40)
[2021-06-21] MEDS: DOCUSATE SODIUM 100 MG/10 ML ORAL LIQD PO SCH ×2 (10:53→21:27)
[2021-06-21] MEDS: SENNOSIDES/DOCUSATE SODIUM 8.6/50 MG TAB FEEDTUBE SCH ×2 (10:54→21:27)
--- NOTE | 2021-06-21 12:59 | Progress Note ---
Assessment and Plan Acute hypoxemic respiratory failure on MVS Cardiopulmonary arrest wtih ROSC Seizure disorder E. Coli Pneumonia Sepsis Toxic metabolic encephalopathy, possible anoxia Atrial fibrillation with RVR Metabolic acidosis Bilateral lower lobe infiltrates - de-escalated to Rocephin - ID consult placed - follow repeat CXR in am; ? aspiration PNA post recent emesis - continue Mucomyst nebs - continue t-piece trials as tolerated - continue anticoagulation with Eliquis - continue care as below otherwise; - LTAC evaluation is appropriate - continue scopolamine patch for secretions - azotemia per nephrology team (non-oliguric) - continue to wean supplemental oxygen for target O2 sat's > 90% acutely - aspiration precautions - continue lung protective strategies - continue bronchodilators with pulmonary hygiene per RT - wean per pulmonary driven protocols otherwise - continue accuchecks with glycemic control per SSI (While critically ill target blood glucose of 140-180 mg/dL; avoid hypoglycemia) - avoid nephrotoxins, renally dose all medications - continue scopolamine for secretion control - continue Keppra as AED - continue to avoid benzodiazepine's, reduce the possibility of delirium - AB's per ID rec's - prn analgesia per CPOT score - Maintenance of sleep-wake cycle, avoid delirium - continue enteral nutritional support at goal rate as tolerated - G.I. & VTE prophylaxis - PT/OT/ROM exercises - continue mobility protocols for pressure ulcer prophylaxis - Monitor hemodynamics closely - continue other care per attending / other consultants - discharge planning ongoing concurrently COVID SPECIFIC INTERVENTIONS - COVID-19 PCR negative .... Re-evaluate in am & prn CONDITION: CRITICAL PROGNOSIS: GUARDED CODE STATUS: FULL CODE The high probability of a clinically significant, sudden or life-threatening deterioration of the [respiratory, cardiovascular, renal & neurologic] system(s) required my full and direct attention, intervention and personal management. The aggregate critical care time was [32] minutes without overlap. Time includes spent on; [x] Data Review and interpretation [x] Patient assessment and monitoring of vital signs [x] Documentation [x] Medication orders and management Subjective Date of service: 06/21/21 Principal diagnosis: Ac hypoxemic resp failure; Cardiac arrest; Seizures; Sepsis; AMS; A-Fib RVR Interval history: Patient is seen today for: Acute hypoxemic respiratory failure; Cardiac arrest wtih ROSC; Seizure disorder; Sepsis; AMS; A-Fib with RVR Seen and examined at bedside; 24hour events reviewed; nursing and respiratory care staff consulted; no adverse overnight events reported to me; resting in bed; rested on MVS; Objective Vital Signs - 12hr 06/21/21 06/21/21 06/21/21 01:00 01:31 02:00 Temperature Pulse Rate 83 81 82 Pulse Rate [ From Monitor] Respiratory 25 H 16 17 Rate Blood Pressure 152/66 137/60 142/62 O2 Sat by Pulse 100 100 100 Oximetry O2 Sat by Pulse Oximetry [ Assessment] 06/21/21 06/21/21 06/21/21 02:31 02:34 03:00 Temperature Pulse Rate 83 82 82 Pulse Rate [ From Monitor] Respiratory 26 H 21 Rate Blood Pressure 142/62 142/62 145/65 O2 Sat by Pulse 100 100 100 Oximetry O2 Sat by Pulse Oximetry [ Assessment] 06/21/21 06/21/21 06/21/21 03:31 04:00 04:31 Temperature 99.0 F Pulse Rate 90 87 78 Pulse Rate [ 80 From Monitor] Respiratory 24 20 17 Rate Blood Pressure 145/65 130/64 145/65 O2 Sat by Pulse 100 100 99 Oximetry O2 Sat by Pulse Oximetry [ Assessment] 06/21/21 06/21/21 06/21/21 05:00 05:21 05:31 Temperature Pulse Rate 85 87 80 Pulse Rate [ From Monitor] Respiratory 19 13 Rate Blood Pressure 135/63 135/65 135/63 O2 Sat by Pulse 100 99 Oximetry O2 Sat by Pulse Oximetry [ Assessment] 06/21/21 06/21/21 06/21/21 06:00 06:31 07:01 Temperature Pulse Rate 84 81 82 Pulse Rate [ From Monitor] Respiratory 19 15 21 Rate Blood Pressure 132/64 135/63 107/46 O2 Sat by Pulse 100 100 99 Oximetry O2 Sat by Pulse Oximetry [ Assessment] 06/21/21 06/21/21 06/21/21 07:31 07:47 08:00 Temperature Pulse Rate 90 82 82 Pulse Rate [ From Monitor] Respiratory 28 H 5 L 16 Rate Blood Pressure 107/46 107/46 105/48 O2 Sat by Pulse 99 99 98 Oximetry O2 Sat by Pulse 100 Oximetry [ Assessment] 06/21/21 06/21/21 06/21/21 08:03 08:06 08:20 Temperature 100.3 F H Pulse Rate Pulse Rate [ From Monitor] Respiratory Rate Blood Pressure O2 Sat by Pulse 98 100 Oximetry O2 Sat by Pulse Oximetry [ Assessment] 06/21/21 06/21/21 06/21/21 08:31 09:00 09:31 Temperature Pulse Rate 83 91 H 87 Pulse Rate [ From Monitor] Respiratory 14 19 25 H Rate Blood Pressure 107/46 140/64 140/64 O2 Sat by Pulse 99 100 100 Oximetry O2 Sat by Pulse Oximetry [ Assessment] 06/21/21 06/21/21 06/21/21 10:00 10:31 10:53 Temperature Pulse Rate 81 86 Pulse Rate [ From Monitor] Respiratory 13 18 Rate Blood Pressure 94/45 100/43 94/45 O2 Sat by Pulse 100 100 Oximetry O2 Sat by Pulse Oximetry [ Assessment] 06/21/21 06/21/21 06/21/21 10:54 11:00 11:31 Temperature Pulse Rate 83 84 Pulse Rate [ From Monitor] Respiratory 22 18 Rate Blood Pressure 94/45 119/63 119/63 O2 Sat by Pulse 100 100 Oximetry O2 Sat by Pulse Oximetry [ Assessment] 06/21/21 06/21/21 11:59 12:00 Temperature 99.8 F H Pulse Rate 84 Pulse Rate [ From Monitor] Respiratory 17 Rate Blood Pressure 120/58 O2 Sat by Pulse 100 Oximetry O2 Sat by Pulse Oximetry [ Assessment] Constitutional: appears uncomfortable, other (elderly female with mildly increased respiratory effort at rest on MVS) Eyes: non-icteric ENT: oropharynx moist, other (+ midline tracheostomy with mild secretions) Neck: supple, no lymphadenopathy Effort: mildly labored Ascultation: Bilateral: diminished breath sounds, rhonchi (scant) Percussion: Bilateral: not dull Cardiovascular: regular rate and rhythm, other (S1,S2) Gastrointestinal: normoactive bowel sounds, soft, non-tender, non-distended (protuberant), other (+ PEG tube) Integumentary: normal Extremities: no cyanosis, pulses normal, no ischemia or petechiae, other (Right femoral CVL) Neurologic: pupils equal and round, unable to assess, other (encephalopathic) Psychiatric: other (unable to assess) CBC and BMP: 06/24/21 04:40 06/24/21 04:40 ABG, PT/INR, D-dimer: ABG ABG pH 7.471 (7.320-7.450) H 06/15/21 10:19 POC ABG pCO2 40.4 mmHg (32.0-48.0) 06/15/21 10:19 ABG pCO2 30.3 mm Hg 05/29/21 05:28 POC ABG pO2 90.1 mmHg (83-108) 06/15/21 10:19 ABG pO2 96.2 mm Hg (80.0-90.0) H 05/29/21 05:28 POC ABG HCO3 28.8 06/15/21 10:19 ABG O2 Saturation 97.4 (0-100) 06/15/21 10:19 PT/INR, D-dimer PT 14.5 Sec. (12.2-14.9) 06/16/21 18:51 INR 1.08 (0.87-1.13) 06/16/21 18:51 D-Dimer > 40108 ng/mlDDU (0-234) H 05/25/21 09:21 Abnormal lab findings: Abnormal Labs 05/25/21 05/25/21 05/25/21 09:07 09:21 09:21 WBC 17.1 H RBC Hgb Hct MCV 106 H MCH 33 H MCHC RDW 15.6 H [place] % (Auto) [place] # (Auto) Seg Neutrophils % Seg Neuts % (Manual) Lymphocytes % (Manual) Monocytes % (Manual) Seg Neutrophils # Seg Neutrophils # Man 10.1 H Lymphocytes # (Manual) 5.6 H Monocytes # (Manual) PT 15.0 H APTT 44.3 H D-Dimer > 75039 H Heparin Anti-Xa Level ABG pH 7.116 L POC ABG pCO2 POC ABG pO2 ABG pO2 ABG Hemoglobin ABG Oxyhemoglobin 93.7 L ABG Sodium ABG Potassium ABG Chloride ABG Glucose 395 H Carboxyhemoglobin Sodium Potassium Chloride Carbon Dioxide BUN Creatinine Glucose POC Glucose Lactic Acid Calcium Phosphorus Magnesium Ferritin AST ALT Alkaline Phosphatase Lactate Dehydrogenase Troponin T C-Reactive Protein Total Protein Albumin HDL Cholesterol Arterial Blood Glucose 395 H Arterial Blood Ionized Calcium 4.4 L Urine WBC (Auto) Urine Creatinine 05/25/21 05/25/21 05/25/21 09:21 09:21 09:21 WBC RBC Hgb Hct MCV MCH MCHC RDW [place] % (Auto) [place] # (Auto) Seg Neutrophils % Seg Neuts % (Manual) Lymphocytes % (Manual) Monocytes % (Manual) Seg Neutrophils # Seg Neutrophils # Man Lymphocytes # (Manual) Monocytes # (Manual) PT APTT D-Dimer Heparin Anti-Xa Level ABG pH POC ABG pCO2 POC ABG pO2 ABG pO2 ABG Hemoglobin ABG Oxyhemoglobin ABG Sodium ABG Potassium ABG Chloride ABG Glucose Carboxyhemoglobin Sodium Potassium Chloride Carbon Dioxide 10 L BUN Creatinine Glucose 423 H 424 H POC Glucose Lactic Acid Calcium 8.2 L Phosphorus Magnesium Ferritin 321.6 H AST 162 H ALT 119 H Alkaline Phosphatase Lactate Dehydrogenase 445 H Troponin T C-Reactive Protein Total Protein 5.6 L Albumin 3.2 L HDL Cholesterol Arterial Blood Glucose Arterial Blood Ionized Calcium Urine WBC (Auto) Urine Creatinine 05/25/21 05/25/21 05/25/21 09:35 10:42 11:12 WBC RBC Hgb Hct MCV MCH MCHC RDW [place] % (Auto) [place] # (Auto) Seg Neutrophils % Seg Neuts % (Manual) Lymphocytes % (Manual) Monocytes % (Manual) Seg Neutrophils # Seg Neutrophils # Man Lymphocytes # (Manual) Monocytes # (Manual) PT APTT D-Dimer Heparin Anti-Xa Level ABG pH POC ABG pCO2 POC ABG pO2 ABG pO2 ABG Hemoglobin ABG Oxyhemoglobin ABG Sodium ABG Potassium ABG Chloride ABG Glucose Carboxyhemoglobin Sodium Potassium Chloride Carbon Dioxide BUN Creatinine Glucose POC Glucose Lactic Acid 16.70 H* 7.70 H* Calcium Phosphorus Magnesium Ferritin AST ALT Alkaline Phosphatase Lactate Dehydrogenase Troponin T C-Reactive Protein Total Protein Albumin HDL Cholesterol Arterial Blood Glucose Arterial Blood Ionized Calcium Urine WBC (Auto) 11.0 H Urine Creatinine 05/25/21 05/25/21 05/25/21 14:07 15:19 19:04 WBC RBC Hgb Hct MCV MCH MCHC RDW [place] % (Auto) [place] # (Auto) Seg Neutrophils % Seg Neuts % (Manual) Lymphocytes % (Manual) Monocytes % (Manual) Seg Neutrophils # Seg Neutrophils # Man Lymphocytes # (Manual) Monocytes # (Manual) PT APTT D-Dimer Heparin Anti-Xa Level ABG pH POC ABG pCO2 POC ABG pO2 172.2 H ABG pO2 ABG Hemoglobin ABG Oxyhemoglobin 98.7 H ABG Sodium 135.7 L ABG Potassium ABG Chloride ABG Glucose 255 H Carboxyhemoglobin 0.3 L Sodium Potassium Chloride Carbon Dioxide BUN Creatinine Glucose POC Glucose Lactic Acid 3.90 H* Calcium Phosphorus Magnesium Ferritin AST ALT Alkaline Phosphatase Lactate Dehydrogenase Troponin T 0.226 H* D C-Reactive Protein Total Protein Albumin HDL Cholesterol 64 H Arterial Blood Glucose 255 H Arterial Blood Ionized Calcium 3.8 L Urine WBC (Auto) Urine Creatinine 05/25/21 05/25/21 05/26/21 21:16 21:16 04:00 WBC RBC Hgb Hct MCV MCH MCHC RDW [place] % (Auto) [place] # (Auto) Seg Neutrophils % Seg Neuts % (Manual) Lymphocytes % (Manual) Monocytes % (Manual) Seg Neutrophils # Seg Neutrophils # Man Lymphocytes # (Manual) Monocytes # (Manual) PT APTT D-Dimer Heparin Anti-Xa Level 1.19 H ABG pH 7.547 H POC ABG pCO2 POC ABG pO2 ABG pO2 ABG Hemoglobin 11.9 L ABG Oxyhemoglobin ABG Sodium 133.2 L ABG Potassium 3.1 L ABG Chloride ABG Glucose 243 H Carboxyhemoglobin 0.3 L Sodium Potassium Chloride Carbon Dioxide BUN Creatinine Glucose POC Glucose Lactic Acid 2.50 H* Calcium Phosphorus Magnesium Ferritin AST ALT Alkaline Phosphatase Lactate Dehydrogenase Troponin T C-Reactive Protein Total Protein Albumin HDL Cholesterol Arterial Blood Glucose 243 H Arterial Blood Ionized Calcium Urine WBC (Auto) Urine Creatinine 05/26/21 05/26/21 05/26/21 05:49 05:49 17:33 WBC RBC Hgb Hct MCV MCH MCHC RDW [place] % (Auto) [place] # (Auto) Seg Neutrophils % Seg Neuts % (Manual) Lymphocytes % (Manual) Monocytes % (Manual) Seg Neutrophils # Seg Neutrophils # Man Lymphocytes # (Manual) Monocytes # (Manual) PT APTT D-Dimer Heparin Anti-Xa Level ABG pH POC ABG pCO2 POC ABG pO2 ABG pO2 ABG Hemoglobin ABG Oxyhemoglobin ABG Sodium ABG Potassium ABG Chloride ABG Glucose Carboxyhemoglobin Sodium Potassium Chloride Carbon Dioxide BUN Creatinine Glucose 226 H POC Glucose 156 H Lactic Acid 2.30 H* Calcium 7.2 L Phosphorus Magnesium Ferritin AST 111 H ALT 97 H Alkaline Phosphatase Lactate Dehydrogenase Troponin T C-Reactive Protein Total Protein 5.4 L Albumin 3.3 L HDL Cholesterol Arterial Blood Glucose Arterial Blood Ionized Calcium Urine WBC (Auto) Urine Creatinine 05/27/21 05/27/21 05/27/21 02:11 02:11 02:11 WBC 14.3 H RBC 3.27 L Hgb Hct MCV 99 H MCH 33 H MCHC RDW 15.3 H [place] % (Auto) [place] # (Auto) 1.0 H Seg Neutrophils % Seg Neuts % (Manual) Lymphocytes % (Manual) Monocytes % (Manual) Seg Neutrophils # 10.0 H Seg Neutrophils # Man Lymphocytes # (Manual) Monocytes # (Manual) PT APTT D-Dimer Heparin Anti-Xa Level 0.80 H ABG pH POC ABG pCO2 POC ABG pO2 ABG pO2 ABG Hemoglobin ABG Oxyhemoglobin ABG Sodium ABG Potassium ABG Chloride ABG Glucose Carboxyhemoglobin Sodium Potassium 2.9 L* D Chloride Carbon Dioxide 31 H BUN 6 L Creatinine Glucose 215 H POC Glucose Lactic Acid Calcium 8.1 L Phosphorus Magnesium Ferritin AST ALT Alkaline Phosphatase Lactate Dehydrogenase Troponin T C-Reactive Protein Total Protein Albumin HDL Cholesterol Arterial Blood Glucose Arterial Blood Ionized Calcium Urine WBC (Auto) Urine Creatinine 05/27/21 05/27/21 05/27/21 11:24 12:49 18:06 WBC RBC Hgb Hct MCV MCH MCHC RDW [place] % (Auto) [place] # (Auto) Seg Neutrophils % Seg Neuts % (Manual) Lymphocytes % (Manual) Monocytes % (Manual) Seg Neutrophils # Seg Neutrophils # Man Lymphocytes # (Manual) Monocytes # (Manual) PT APTT D-Dimer Heparin Anti-Xa Level ABG pH POC ABG pCO2 POC ABG pO2 ABG pO2 ABG Hemoglobin ABG Oxyhemoglobin ABG Sodium ABG Potassium ABG Chloride ABG Glucose Carboxyhemoglobin Sodium Potassium Chloride Carbon Dioxide BUN Creatinine Glucose POC Glucose 151 H 165 H 137 H Lactic Acid Calcium Phosphorus Magnesium Ferritin AST ALT Alkaline Phosphatase Lactate Dehydrogenase Troponin T C-Reactive Protein Total Protein Albumin HDL Cholesterol Arterial Blood Glucose Arterial Blood Ionized Calcium Urine WBC (Auto) Urine Creatinine 05/28/21 05/28/21 05/28/21 04:00 04:00 06:02 WBC 13.5 H RBC 3.05 L Hgb Hct MCV 100 H MCH 34 H MCHC RDW [place] % (Auto) [place] # (Auto) 0.9 H Seg Neutrophils % 78.2 H Seg Neuts % (Manual) Lymphocytes % (Manual) Monocytes % (Manual) Seg Neutrophils # 10.6 H Seg Neutrophils # Man Lymphocytes # (Manual) Monocytes # (Manual) PT APTT D-Dimer Heparin Anti-Xa Level ABG pH 7.507 H POC ABG pCO2 POC ABG pO2 ABG pO2 ABG Hemoglobin 10.6 L ABG Oxyhemoglobin ABG Sodium 129.4 L ABG Potassium ABG Chloride ABG Glucose 243 H Carboxyhemoglobin 0.2 L Sodium 136 L D Potassium Chloride Carbon Dioxide BUN Creatinine Glucose 215 H POC Glucose Lactic Acid Calcium Phosphorus Magnesium Ferritin AST ALT Alkaline Phosphatase Lactate Dehydrogenase Troponin T C-Reactive Protein Total Protein Albumin HDL Cholesterol Arterial Blood Glucose 243 H Arterial Blood Ionized Calcium 4.1 L Urine WBC (Auto) Urine Creatinine 05/28/21 05/28/21 05/29/21 11:27 23:02 04:30 WBC RBC Hgb 9.3 L Hct 26.7 L MCV MCH MCHC RDW [place] % (Auto) [place] # (Auto) Seg Neutrophils % Seg Neuts % (Manual) Lymphocytes % (Manual) Monocytes % (Manual) Seg Neutrophils # Seg Neutrophils # Man Lymphocytes # (Manual) Monocytes # (Manual) PT APTT D-Dimer Heparin Anti-Xa Level ABG pH POC ABG pCO2 POC ABG pO2 ABG pO2 ABG Hemoglobin ABG Oxyhemoglobin ABG Sodium ABG Potassium ABG Chloride ABG Glucose Carboxyhemoglobin Sodium Potassium Chloride Carbon Dioxide BUN Creatinine Glucose POC Glucose 220 H 212 H Lactic Acid Calcium Phosphorus Magnesium Ferritin AST ALT Alkaline Phosphatase Lactate Dehydrogenase Troponin T C-Reactive Protein Total Protein Albumin HDL Cholesterol Arterial Blood Glucose Arterial Blood Ionized Calcium Urine WBC (Auto) Urine Creatinine 05/29/21 05/29/21 05/29/21 05:02 05:28 12:55 WBC RBC Hgb Hct MCV MCH MCHC RDW [place] % (Auto) [place] # (Auto) Seg Neutrophils % Seg Neuts % (Manual) Lymphocytes % (Manual) Monocytes % (Manual) Seg Neutrophils # Seg Neutrophils # Man Lymphocytes # (Manual) Monocytes # (Manual) PT APTT D-Dimer Heparin Anti-Xa Level ABG pH 7.516 H POC ABG pCO2 POC ABG pO2 ABG pO2 96.2 H ABG Hemoglobin 7.5 L ABG Oxyhemoglobin ABG Sodium ABG Potassium ABG Chloride ABG Glucose Carboxyhemoglobin Sodium Potassium Chloride Carbon Dioxide BUN Creatinine Glucose POC Glucose 197 H 251 H Lactic Acid Calcium Phosphorus Magnesium Ferritin AST ALT Alkaline Phosphatase Lactate Dehydrogenase Troponin T C-Reactive Protein Total Protein Albumin HDL Cholesterol Arterial Blood Glucose Arterial Blood Ionized Calcium Urine WBC (Auto) Urine Creatinine 05/29/21 05/29/21 05/30/21 18:23 23:31 04:10 WBC RBC Hgb Hct MCV MCH MCHC RDW [place] % (Auto) [place] # (Auto) Seg Neutrophils % Seg Neuts % (Manual) Lymphocytes % (Manual) Monocytes % (Manual) Seg Neutrophils # Seg Neutrophils # Man Lymphocytes # (Manual) Monocytes # (Manual) PT APTT D-Dimer Heparin Anti-Xa Level ABG pH 7.532 H POC ABG pCO2 30.0 L POC ABG pO2 78.5 L ABG pO2 ABG Hemoglobin 11.3 L ABG Oxyhemoglobin ABG Sodium 126.7 L ABG Potassium ABG Chloride 94.0 L ABG Glucose 270 H Carboxyhemoglobin 0.4 L Sodium Potassium Chloride Carbon Dioxide BUN Creatinine Glucose POC Glucose 236 H 252 H Lactic Acid Calcium Phosphorus Magnesium Ferritin AST ALT Alkaline Phosphatase Lactate Dehydrogenase Troponin T C-Reactive Protein Total Protein Albumin HDL Cholesterol Arterial Blood Glucose 270 H Arterial Blood Ionized Calcium 4.4 L Urine WBC (Auto) Urine Creatinine 05/30/21 05/30/21 05/30/21 05:06 06:23 11:15 WBC RBC Hgb Hct MCV MCH MCHC RDW [place] % (Auto) [place] # (Auto) Seg Neutrophils % Seg Neuts % (Manual) Lymphocytes % (Manual) Monocytes % (Manual) Seg Neutrophils # Seg Neutrophils # Man Lymphocytes # (Manual) Monocytes # (Manual) PT APTT D-Dimer Heparin Anti-Xa Level ABG pH POC ABG pCO2 POC ABG pO2 ABG pO2 ABG Hemoglobin ABG Oxyhemoglobin ABG Sodium ABG Potassium ABG Chloride ABG Glucose Carboxyhemoglobin Sodium 126 L D Potassium Chloride 91.9 L Carbon Dioxide 20 L D BUN Creatinine 0.4 L Glucose 274 H POC Glucose 242 H 346 H Lactic Acid Calcium Phosphorus Magnesium Ferritin AST ALT Alkaline Phosphatase Lactate Dehydrogenase Troponin T C-Reactive Protein Total Protein Albumin HDL Cholesterol Arterial Blood Glucose Arterial Blood Ionized Calcium Urine WBC (Auto) Urine Creatinine 05/30/21 05/30/21 05/30/21 11:19 11:19 11:19 WBC 18.9 H RBC 3.36 L Hgb Hct MCV 102 H MCH 33 H MCHC RDW 15.5 H [place] % (Auto) [place] # (Auto) Seg Neutrophils % Seg Neuts % (Manual) Lymphocytes % (Manual) Monocytes % (Manual) Seg Neutrophils # Seg Neutrophils # Man Lymphocytes # (Manual) Monocytes # (Manual) PT APTT D-Dimer Heparin Anti-Xa Level < 0.10 L ABG pH POC ABG pCO2 POC ABG pO2 ABG pO2 ABG Hemoglobin ABG Oxyhemoglobin ABG Sodium ABG Potassium ABG Chloride ABG Glucose Carboxyhemoglobin Sodium 124 L Potassium Chloride Carbon Dioxide BUN Creatinine Glucose POC Glucose Lactic Acid Calcium Phosphorus Magnesium Ferritin AST ALT Alkaline Phosphatase Lactate Dehydrogenase Troponin T C-Reactive Protein Total Protein Albumin HDL Cholesterol Arterial Blood Glucose Arterial Blood Ionized Calcium Urine WBC (Auto) Urine Creatinine 05/30/21 05/30/21 05/31/21 17:02 23:27 03:37 WBC RBC Hgb Hct MCV MCH MCHC RDW [place] % (Auto) [place] # (Auto) Seg Neutrophils % Seg Neuts % (Manual) Lymphocytes % (Manual) Monocytes % (Manual) Seg Neutrophils # Seg Neutrophils # Man Lymphocytes # (Manual) Monocytes # (Manual) PT APTT D-Dimer Heparin Anti-Xa Level ABG pH POC ABG pCO2 POC ABG pO2 ABG pO2 ABG Hemoglobin 11.6 L ABG Oxyhemoglobin ABG Sodium 130.0 L ABG Potassium ABG Chloride 95.0 L ABG Glucose 292 H Carboxyhemoglobin Sodium Potassium Chloride Carbon Dioxide BUN Creatinine Glucose POC Glucose 270 H 237 H Lactic Acid Calcium Phosphorus Magnesium Ferritin AST ALT Alkaline Phosphatase Lactate Dehydrogenase Troponin T C-Reactive Protein Total Protein Albumin HDL Cholesterol Arterial Blood Glucose 292 H Arterial Blood Ionized Calcium Urine WBC (Auto) Urine Creatinine 05/31/21 05/31/21 05/31/21 04:00 04:00 05:20 WBC 20.9 H RBC 3.13 L Hgb Hct MCV 99 H MCH 34 H MCHC RDW [place] % (Auto) [place] # (Auto) Seg Neutrophils % Seg Neuts % (Manual) 81.0 H Lymphocytes % (Manual) 8.0 L Monocytes % (Manual) 9.0 H Seg Neutrophils # Seg Neutrophils # Man 16.9 H Lymphocytes # (Manual) Monocytes # (Manual) 1.9 H PT APTT D-Dimer Heparin Anti-Xa Level ABG pH POC ABG pCO2 POC ABG pO2 ABG pO2 ABG Hemoglobin ABG Oxyhemoglobin ABG Sodium ABG Potassium ABG Chloride ABG Glucose Carboxyhemoglobin Sodium 133 L D Potassium Chloride 95.4 L Carbon Dioxide 21 L BUN 30 H Creatinine 0.5 L Glucose 305 H POC Glucose 269 H Lactic Acid Calcium Phosphorus Magnesium Ferritin AST ALT Alkaline Phosphatase Lactate Dehydrogenase Troponin T C-Reactive Protein Total Protein Albumin HDL Cholesterol Arterial Blood Glucose Arterial Blood Ionized Calcium Urine WBC (Auto) Urine Creatinine 05/31/21 05/31/21 05/31/21 11:40 18:16 23:25 WBC RBC Hgb Hct MCV MCH MCHC RDW [place] % (Auto) [place] # (Auto) Seg Neutrophils % Seg Neuts % (Manual) Lymphocytes % (Manual) Monocytes % (Manual) Seg Neutrophils # Seg Neutrophils # Man Lymphocytes # (Manual) Monocytes # (Manual) PT APTT D-Dimer Heparin Anti-Xa Level ABG pH POC ABG pCO2 POC ABG pO2 ABG pO2 ABG Hemoglobin ABG Oxyhemoglobin ABG Sodium ABG Potassium ABG Chloride ABG Glucose Carboxyhemoglobin Sodium Potassium Chloride Carbon Dioxide BUN Creatinine Glucose POC Glucose 364 H 250 H 231 H Lactic Acid Calcium Phosphorus Magnesium Ferritin AST ALT Alkaline Phosphatase Lactate Dehydrogenase Troponin T C-Reactive Protein Total Protein Albumin HDL Cholesterol Arterial Blood Glucose Arterial Blood Ionized Calcium Urine WBC (Auto) Urine Creatinine 06/01/21 06/01/21 06/01/21 04:03 04:58 04:58 WBC 20.7 H RBC 3.20 L Hgb Hct MCV 99 H MCH 34 H MCHC RDW [place] % (Auto) [place] # (Auto) Seg Neutrophils % Seg Neuts % (Manual) 82.0 H Lymphocytes % (Manual) 9.0 L Monocytes % (Manual) Seg Neutrophils # Seg Neutrophils # Man 17.0 H Lymphocytes # (Manual) Monocytes # (Manual) 1.4 H PT APTT D-Dimer Heparin Anti-Xa Level 1.18 H ABG pH 7.520 H POC ABG pCO2 POC ABG pO2 66.0 L ABG pO2 ABG Hemoglobin ABG Oxyhemoglobin 92.5 L ABG Sodium 133.6 L ABG Potassium ABG Chloride ABG Glucose 250 H Carboxyhemoglobin Sodium Potassium Chloride Carbon Dioxide BUN Creatinine Glucose POC Glucose Lactic Acid Calcium Phosphorus Magnesium Ferritin AST ALT Alkaline Phosphatase Lactate Dehydrogenase Troponin T C-Reactive Protein Total Protein Albumin HDL Cholesterol Arterial Blood Glucose 250 H Arterial Blood Ionized Calcium 4.4 L Urine WBC (Auto) Urine Creatinine 06/01/21 06/01/21 06/01/21 04:58 05:29 11:39 WBC RBC Hgb Hct MCV MCH MCHC RDW [place] % (Auto) [place] # (Auto) Seg Neutrophils % Seg Neuts % (Manual) Lymphocytes % (Manual) Monocytes % (Manual) Seg Neutrophils # Seg Neutrophils # Man Lymphocytes # (Manual) Monocytes # (Manual) PT APTT D-Dimer Heparin Anti-Xa Level ABG pH POC ABG pCO2 POC ABG pO2 ABG pO2 ABG Hemoglobin ABG Oxyhemoglobin ABG Sodium ABG Potassium ABG Chloride ABG Glucose Carboxyhemoglobin Sodium 131 L Potassium Chloride 95.7 L Carbon Dioxide BUN 30 H Creatinine 0.5 L Glucose 241 H POC Glucose 215 H 299 H Lactic Acid Calcium Phosphorus Magnesium Ferritin AST ALT Alkaline Phosphatase Lactate Dehydrogenase Troponin T C-Reactive Protein Total Protein Albumin HDL Cholesterol Arterial Blood Glucose Arterial Blood Ionized Calcium Urine WBC (Auto) Urine Creatinine 06/01/21 06/02/21 06/02/21 18:14 00:12 02:25 WBC 17.4 H RBC 3.09 L Hgb Hct MCV 101 H MCH 34 H MCHC RDW 15.5 H [place] % (Auto) [place] # (Auto) Seg Neutrophils % Seg Neuts % (Manual) Lymphocytes % (Manual) Monocytes % (Manual) Seg Neutrophils # Seg Neutrophils # Man Lymphocytes # (Manual) Monocytes # (Manual) PT APTT D-Dimer Heparin Anti-Xa Level ABG pH POC ABG pCO2 POC ABG pO2 ABG pO2 ABG Hemoglobin ABG Oxyhemoglobin ABG Sodium ABG Potassium ABG Chloride ABG Glucose Carboxyhemoglobin Sodium Potassium Chloride Carbon Dioxide BUN Creatinine Glucose POC Glucose 215 H 175 H Lactic Acid Calcium Phosphorus Magnesium Ferritin AST ALT Alkaline Phosphatase Lactate Dehydrogenase Troponin T C-Reactive Protein Total Protein Albumin HDL Cholesterol Arterial Blood Glucose Arterial Blood Ionized Calcium Urine WBC (Auto) Urine Creatinine 06/02/21 06/02/21 06/02/21 02:25 04:13 04:58 WBC RBC Hgb Hct MCV MCH MCHC RDW [place] % (Auto) [place] # (Auto) Seg Neutrophils % Seg Neuts % (Manual) Lymphocytes % (Manual) Monocytes % (Manual) Seg Neutrophils # Seg Neutrophils # Man Lymphocytes # (Manual) Monocytes # (Manual) PT APTT D-Dimer Heparin Anti-Xa Level ABG pH 7.481 H POC ABG pCO2 POC ABG pO2 80.0 L ABG pO2 ABG Hemoglobin 11.1 L ABG Oxyhemoglobin ABG Sodium 131.9 L ABG Potassium ABG Chloride ABG Glucose 231 H Carboxyhemoglobin 0.2 L Sodium 134 L Potassium Chloride 95.8 L Carbon Dioxide BUN 31 H Creatinine 0.5 L Glucose 168 H POC Glucose 230 H Lactic Acid Calcium Phosphorus Magnesium Ferritin AST ALT Alkaline Phosphatase Lactate Dehydrogenase Troponin T C-Reactive Protein Total Protein Albumin HDL Cholesterol Arterial Blood Glucose 231 H Arterial Blood Ionized Calcium Urine WBC (Auto) Urine Creatinine 06/02/21 06/02/21 06/02/21 11:27 17:47 23:53 WBC RBC Hgb Hct MCV MCH MCHC [place] % (Auto) [place] # (Auto) Seg Neutrophils % Seg Neuts % (Manual) Lymphocytes % (Manual) Monocytes % (Manual) Seg Neutrophils # Seg Neutrophils # Man Lymphocytes # (Manual) Monocytes # (Manual) PT APTT D-Dimer Heparin Anti-Xa Level 0.80 H ABG pH POC ABG pCO2 POC ABG pO2 ABG pO2 ABG Hemoglobin ABG Oxyhemoglobin ABG Sodium ABG Potassium ABG Chloride ABG Glucose Carboxyhemoglobin Sodium Potassium Chloride Carbon Dioxide BUN Creatinine Glucose POC Glucose 259 H 297 H Lactic Acid Calcium Phosphorus Magnesium Ferritin AST ALT Alkaline Phosphatase Lactate Dehydrogenase Troponin T C-Reactive Protein Total Protein Albumin HDL Cholesterol Arterial Blood Glucose Arterial Blood Ionized Calcium Urine WBC (Auto) Urine Creatinine 06/03/21 06/03/21 06/03/21 00:05 05:23 09:10 WBC RBC Hgb Hct MCV MCH MCHC [place] % (Auto) [place] # (Auto) Seg Neutrophils % Seg Neuts % (Manual) Lymphocytes % (Manual) Monocytes % (Manual) Seg Neutrophils # Seg Neutrophils # Man Lymphocytes # (Manual) Monocytes # (Manual) PT APTT D-Dimer Heparin Anti-Xa Level 0.84 H ABG pH POC ABG pCO2 POC ABG pO2 ABG pO2 ABG Hemoglobin ABG Oxyhemoglobin ABG Sodium ABG Potassium ABG Chloride ABG Glucose Carboxyhemoglobin Sodium Potassium Chloride Carbon Dioxide BUN Creatinine Glucose POC Glucose 268 H 170 H Lactic Acid Calcium Phosphorus Magnesium Ferritin AST ALT Alkaline Phosphatase Lactate Dehydrogenase Troponin T C-Reactive Protein Total Protein Albumin HDL Cholesterol Arterial Blood Glucose Arterial Blood Ionized Calcium Urine WBC (Auto) Urine Creatinine 06/03/21 06/03/21 06/03/21 12:06 20:22 23:30 WBC RBC Hgb Hct MCV MCH MCHC [place] % (Auto) [place] # (Auto) Seg Neutrophils % Seg Neuts % (Manual) Lymphocytes % (Manual) Monocytes % (Manual) Seg Neutrophils # Seg Neutrophils # Man Lymphocytes # (Manual) Monocytes # (Manual) PT APTT D-Dimer Heparin Anti-Xa Level ABG pH POC ABG pCO2 POC ABG pO2 ABG pO2 ABG Hemoglobin ABG Oxyhemoglobin ABG Sodium ABG Potassium ABG Chloride ABG Glucose Carboxyhemoglobin Sodium Potassium Chloride Carbon Dioxide BUN Creatinine Glucose POC Glucose 275 H 260 H 215 H Lactic Acid Calcium Phosphorus Magnesium Ferritin AST ALT Alkaline Phosphatase Lactate Dehydrogenase Troponin T C-Reactive Protein Total Protein Albumin HDL Cholesterol Arterial Blood Glucose Arterial Blood Ionized Calcium Urine WBC (Auto) Urine Creatinine 06/04/21 06/04/21 06/04/21 05:03 05:57 05:57 WBC 17.8 H RBC 2.83 L Hgb 9.6 L Hct 28.4 L MCV 100 H MCH 34 H MCHC RDW 15.5 H [place] % (Auto) [place] # (Auto) Seg Neutrophils % Seg Neuts % (Manual) 83.0 H Lymphocytes % (Manual) 4.0 L Monocytes % (Manual) Seg Neutrophils # Seg Neutrophils # Man 14.8 H Lymphocytes # (Manual) 0.7 L Monocytes # (Manual) 1.1 H PT APTT D-Dimer Heparin Anti-Xa Level ABG pH POC ABG pCO2 POC ABG pO2 ABG pO2 ABG Hemoglobin ABG Oxyhemoglobin ABG Sodium ABG Potassium ABG Chloride ABG Glucose Carboxyhemoglobin Sodium 135 L Potassium Chloride 96.3 L Carbon Dioxide BUN 51 H Creatinine Glucose 275 H POC Glucose 257 H Lactic Acid Calcium Phosphorus Magnesium Ferritin AST ALT Alkaline Phosphatase Lactate Dehydrogenase Troponin T C-Reactive Protein Total Protein Albumin HDL Cholesterol Arterial Blood Glucose Arterial Blood Ionized Calcium Urine WBC (Auto) Urine Creatinine 06/04/21 06/04/21 06/04/21 09:48 11:08 17:33 WBC RBC Hgb Hct MCV MCH MCHC [place] % (Auto) [place] # (Auto) Seg Neutrophils % Seg Neuts % (Manual) Lymphocytes % (Manual) Monocytes % (Manual) Seg Neutrophils # Seg Neutrophils # Man Lymphocytes # (Manual) Monocytes # (Manual) PT APTT D-Dimer Heparin Anti-Xa Level ABG pH POC ABG pCO2 POC ABG pO2 ABG pO2 ABG Hemoglobin ABG Oxyhemoglobin ABG Sodium ABG Potassium ABG Chloride ABG Glucose Carboxyhemoglobin Sodium Potassium Chloride Carbon Dioxide BUN Creatinine Glucose POC Glucose 198 H 234 H 247 H Lactic Acid Calcium Phosphorus Magnesium Ferritin AST ALT Alkaline Phosphatase Lactate Dehydrogenase Troponin T C-Reactive Protein Total Protein Albumin HDL Cholesterol Arterial Blood Glucose Arterial Blood Ionized Calcium Urine WBC (Auto) Urine Creatinine 06/04/21 06/05/21 06/05/21 23:30 05:38 11:24 WBC RBC Hgb Hct MCV MCH MCHC [place] % (Auto) [place] # (Auto) Seg Neutrophils % Seg Neuts % (Manual) Lymphocytes % (Manual) Monocytes % (Manual) Seg Neutrophils # Seg Neutrophils # Man Lymphocytes # (Manual) Monocytes # (Manual) PT APTT D-Dimer Heparin Anti-Xa Level ABG pH POC ABG pCO2 POC ABG pO2 ABG pO2 ABG Hemoglobin ABG Oxyhemoglobin ABG Sodium ABG Potassium ABG Chloride ABG Glucose Carboxyhemoglobin Sodium Potassium Chloride Carbon Dioxide BUN Creatinine Glucose POC Glucose 192 H 192 H 287 H Lactic Acid Calcium Phosphorus Magnesium Ferritin AST ALT Alkaline Phosphatase Lactate Dehydrogenase Troponin T C-Reactive Protein Total Protein Albumin HDL Cholesterol Arterial Blood Glucose Arterial Blood Ionized Calcium Urine WBC (Auto) Urine Creatinine 06/05/21 06/05/21 06/05/21 12:20 12:20 12:20 WBC 16.2 H RBC 2.56 L Hgb 8.8 L Hct 25.2 L MCV 98 H MCH 35 H MCHC 35 H RDW 15.3 H [place] % (Auto) [place] # (Auto) Seg Neutrophils % Seg Neuts % (Manual) Lymphocytes % (Manual) Monocytes % (Manual) Seg Neutrophils # Seg Neutrophils # Man Lymphocytes # (Manual) Monocytes # (Manual) PT APTT 72.2 H* D-Dimer Heparin Anti-Xa Level ABG pH POC ABG pCO2 POC ABG pO2 ABG pO2 ABG Hemoglobin ABG Oxyhemoglobin ABG Sodium ABG Potassium ABG Chloride ABG Glucose Carboxyhemoglobin Sodium 133 L Potassium Chloride 95.3 L Carbon Dioxide BUN 57 H Creatinine Glucose 313 H POC Glucose Lactic Acid Calcium Phosphorus Magnesium Ferritin AST 90 H ALT 79 H Alkaline Phosphatase 262 H Lactate Dehydrogenase Troponin T C-Reactive Protein Total Protein Albumin 2.7 L HDL Cholesterol Arterial Blood Glucose Arterial Blood Ionized Calcium Urine WBC (Auto) Urine Creatinine 06/05/21 06/05/21 06/05/21 17:50 22:57 23:36 WBC RBC Hgb Hct MCV MCH MCHC [place] % (Auto) [place] # (Auto) Seg Neutrophils % Seg Neuts % (Manual) Lymphocytes % (Manual) Monocytes % (Manual) Seg Neutrophils # Seg Neutrophils # Man Lymphocytes # (Manual) Monocytes # (Manual) PT APTT D-Dimer Heparin Anti-Xa Level 0.28 L ABG pH POC ABG pCO2 POC ABG pO2 ABG pO2 ABG Hemoglobin ABG Oxyhemoglobin ABG Sodium ABG Potassium ABG Chloride ABG Glucose Carboxyhemoglobin Sodium Potassium Chloride Carbon Dioxide BUN Creatinine Glucose POC Glucose 275 H 223 H Lactic Acid Calcium Phosphorus Magnesium Ferritin AST ALT Alkaline Phosphatase Lactate Dehydrogenase Troponin T C-Reactive Protein Total Protein Albumin HDL Cholesterol Arterial Blood Glucose Arterial Blood Ionized Calcium Urine WBC (Auto) Urine Creatinine 06/06/21 06/06/21 06/06/21 04:57 04:57 05:02 WBC 15.7 H RBC 2.77 L Hgb 9.4 L Hct 27.2 L MCV 98 H MCH 34 H MCHC RDW 15.4 H [place] % (Auto) [place] # (Auto) Seg Neutrophils % Seg Neuts % (Manual) Lymphocytes % (Manual) Monocytes % (Manual) Seg Neutrophils # Seg Neutrophils # Man Lymphocytes # (Manual) Monocytes # (Manual) PT APTT D-Dimer Heparin Anti-Xa Level ABG pH POC ABG pCO2 POC ABG pO2 ABG pO2 ABG Hemoglobin ABG Oxyhemoglobin ABG Sodium ABG Potassium ABG Chloride ABG Glucose Carboxyhemoglobin Sodium Potassium 5.7 H Chloride Carbon Dioxide BUN 57 H Creatinine Glucose 245 H POC Glucose 217 H Lactic Acid Calcium Phosphorus Magnesium Ferritin AST 99 H ALT 136 H Alkaline Phosphatase 312 H Lactate Dehydrogenase Troponin T C-Reactive Protein Total Protein 6.1 L Albumin 3.1 L HDL Cholesterol Arterial Blood Glucose Arterial Blood Ionized Calcium Urine WBC (Auto) Urine Creatinine 06/06/21 06/06/21 06/06/21 11:37 17:34 18:09 WBC RBC Hgb Hct MCV MCH MCHC [place] % (Auto) [place] # (Auto) Seg Neutrophils % Seg Neuts % (Manual) Lymphocytes % (Manual) Monocytes % (Manual) Seg Neutrophils # Seg Neutrophils # Man Lymphocytes # (Manual) Monocytes # (Manual) PT APTT D-Dimer Heparin Anti-Xa Level ABG pH POC ABG pCO2 POC ABG pO2 ABG pO2 ABG Hemoglobin ABG Oxyhemoglobin ABG Sodium ABG Potassium ABG Chloride ABG Glucose Carboxyhemoglobin Sodium Potassium 5.2 H Chloride Carbon Dioxide BUN 48 H Creatinine Glucose 245 H POC Glucose 251 H 217 H Lactic Acid Calcium Phosphorus Magnesium Ferritin AST ALT Alkaline Phosphatase Lactate Dehydrogenase Troponin T C-Reactive Protein Total Protein Albumin HDL Cholesterol Arterial Blood Glucose Arterial Blood Ionized Calcium Urine WBC (Auto) Urine Creatinine 06/06/21 06/07/21 06/07/21 23:53 04:45 04:45 WBC 21.5 H RBC 2.71 L Hgb 9.0 L Hct 26.9 L MCV 99 H MCH 33 H MCHC RDW 15.3 H [place] % (Auto) [place] # (Auto) Seg Neutrophils % Seg Neuts % (Manual) Lymphocytes % (Manual) Monocytes % (Manual) Seg Neutrophils # Seg Neutrophils # Man Lymphocytes # (Manual) Monocytes # (Manual) PT APTT D-Dimer Heparin Anti-Xa Level 0.10 L ABG pH POC ABG pCO2 POC ABG pO2 ABG pO2 ABG Hemoglobin ABG Oxyhemoglobin ABG Sodium ABG Potassium ABG Chloride ABG Glucose Carboxyhemoglobin Sodium Potassium Chloride Carbon Dioxide BUN Creatinine Glucose POC Glucose 224 H Lactic Acid Calcium Phosphorus Magnesium Ferritin AST ALT Alkaline Phosphatase Lactate Dehydrogenase Troponin T C-Reactive Protein Total Protein Albumin HDL Cholesterol Arterial Blood Glucose Arterial Blood Ionized Calcium Urine WBC (Auto) Urine Creatinine 06/07/21 06/07/21 06/07/21 04:45 05:11 11:50 WBC RBC Hgb Hct MCV MCH MCHC [place] % (Auto) [place] # (Auto) Seg Neutrophils % Seg Neuts % (Manual) Lymphocytes % (Manual) Monocytes % (Manual) Seg Neutrophils # Seg Neutrophils # Man Lymphocytes # (Manual) Monocytes # (Manual) PT APTT D-Dimer Heparin Anti-Xa Level ABG pH POC ABG pCO2 POC ABG pO2 ABG pO2 ABG Hemoglobin ABG Oxyhemoglobin ABG Sodium ABG Potassium ABG Chloride ABG Glucose Carboxyhemoglobin Sodium Potassium 5.4 H Chloride Carbon Dioxide BUN 55 H Creatinine Glucose 178 H POC Glucose 156 H 118 H Lactic Acid Calcium Phosphorus Magnesium Ferritin AST ALT Alkaline Phosphatase Lactate Dehydrogenase Troponin T C-Reactive Protein Total Protein Albumin HDL Cholesterol Arterial Blood Glucose Arterial Blood Ionized Calcium Urine WBC (Auto) Urine Creatinine 06/07/21 06/07/21 06/07/21 14:52 17:45 20:43 WBC RBC Hgb Hct MCV MCH MCHC [place] % (Auto) [place] # (Auto) Seg Neutrophils % Seg Neuts % (Manual) Lymphocytes % (Manual) Monocytes % (Manual) Seg Neutrophils # Seg Neutrophils # Man Lymphocytes # (Manual) Monocytes # (Manual) PT APTT D-Dimer Heparin Anti-Xa Level 0.73 H ABG pH POC ABG pCO2 POC ABG pO2 ABG pO2 ABG Hemoglobin ABG Oxyhemoglobin ABG Sodium ABG Potassium ABG Chloride ABG Glucose Carboxyhemoglobin Sodium Potassium Chloride Carbon Dioxide BUN Creatinine Glucose POC Glucose 164 H Lactic Acid Calcium Phosphorus Magnesium Ferritin AST ALT Alkaline Phosphatase Lactate Dehydrogenase Troponin T C-Reactive Protein 28.90 H Total Protein Albumin HDL Cholesterol Arterial Blood Glucose Arterial Blood Ionized Calcium Urine WBC (Auto) Urine Creatinine 06/07/21 06/08/21 06/08/21 23:15 04:25 04:25 WBC 15.8 H RBC 2.58 L Hgb 8.6 L Hct 25.7 L MCV 100 H MCH 33 H MCHC [place] % (Auto) [place] # (Auto) Seg Neutrophils % Seg Neuts % (Manual) 76.0 H Lymphocytes % (Manual) 6.0 L Monocytes % (Manual) 8.0 H Seg Neutrophils # Seg Neutrophils # Man 12.0 H Lymphocytes # (Manual) 0.9 L Monocytes # (Manual) 1.3 H PT APTT D-Dimer Heparin Anti-Xa Level ABG pH POC ABG pCO2 POC ABG pO2 ABG pO2 ABG Hemoglobin ABG Oxyhemoglobin ABG Sodium ABG Potassium ABG Chloride ABG Glucose Carboxyhemoglobin Sodium Potassium Chloride Carbon Dioxide BUN 65 H Creatinine Glucose 205 H POC Glucose 236 H Lactic Acid Calcium Phosphorus Magnesium Ferritin AST ALT Alkaline Phosphatase Lactate Dehydrogenase Troponin T C-Reactive Protein Total Protein Albumin HDL Cholesterol Arterial Blood Glucose Arterial Blood Ionized Calcium Urine WBC (Auto) Urine Creatinine 06/08/21 06/08/21 06/08/21 05:36 11:18 17:41 WBC RBC Hgb Hct MCV MCH MCHC [place] % (Auto) [place] # (Auto) Seg Neutrophils % Seg Neuts % (Manual) Lymphocytes % (Manual) Monocytes % (Manual) Seg Neutrophils # Seg Neutrophils # Man Lymphocytes # (Manual) Monocytes # (Manual) PT APTT D-Dimer Heparin Anti-Xa Level ABG pH POC ABG pCO2 POC ABG pO2 ABG pO2 ABG Hemoglobin ABG Oxyhemoglobin ABG Sodium ABG Potassium ABG Chloride ABG Glucose Carboxyhemoglobin Sodium Potassium Chloride Carbon Dioxide BUN Creatinine Glucose POC Glucose 185 H 203 H 173 H Lactic Acid Calcium Phosphorus Magnesium Ferritin AST ALT Alkaline Phosphatase Lactate Dehydrogenase Troponin T C-Reactive Protein Total Protein Albumin HDL Cholesterol Arterial Blood Glucose Arterial Blood Ionized Calcium Urine WBC (Auto) Urine Creatinine 06/08/21 06/09/21 06/09/21 23:34 05:16 05:20 WBC 15.0 H RBC 2.54 L Hgb 8.5 L Hct 25.2 L MCV 99 H MCH 33 H MCHC [place] % (Auto) [place] # (Auto) Seg Neutrophils % Seg Neuts % (Manual) Lymphocytes % (Manual) Monocytes % (Manual) Seg Neutrophils # Seg Neutrophils # Man Lymphocytes # (Manual) Monocytes # (Manual) PT APTT D-Dimer Heparin Anti-Xa Level ABG pH POC ABG pCO2 POC ABG pO2 ABG pO2 ABG Hemoglobin ABG Oxyhemoglobin ABG Sodium ABG Potassium ABG Chloride ABG Glucose Carboxyhemoglobin Sodium Potassium Chloride Carbon Dioxide BUN Creatinine Glucose POC Glucose 200 H 154 H Lactic Acid Calcium Phosphorus Magnesium Ferritin AST ALT Alkaline Phosphatase Lactate Dehydrogenase Troponin T C-Reactive Protein Total Protein Albumin HDL Cholesterol Arterial Blood Glucose Arterial Blood Ionized Calcium Urine WBC (Auto) Urine Creatinine 06/09/21 06/09/21 06/09/21 05:20 11:40 17:09 WBC RBC Hgb Hct MCV MCH MCHC [place] % (Auto) [place] # (Auto) Seg Neutrophils % Seg Neuts % (Manual) Lymphocytes % (Manual) Monocytes % (Manual) Seg Neutrophils # Seg Neutrophils # Man Lymphocytes # (Manual) Monocytes # (Manual) PT APTT D-Dimer Heparin Anti-Xa Level ABG pH POC ABG pCO2 POC ABG pO2 ABG pO2 ABG Hemoglobin ABG Oxyhemoglobin ABG Sodium ABG Potassium ABG Chloride ABG Glucose Carboxyhemoglobin Sodium Potassium 5.2 H Chloride Carbon Dioxide BUN 69 H Creatinine Glucose 163 H POC Glucose 232 H 137 H Lactic Acid Calcium Phosphorus Magnesium Ferritin AST ALT Alkaline Phosphatase Lactate Dehydrogenase Troponin T C-Reactive Protein Total Protein Albumin HDL Cholesterol Arterial Blood Glucose Arterial Blood Ionized Calcium Urine WBC (Auto) Urine Creatinine 06/09/21 06/10/21 06/10/21 23:31 04:42 04:42 WBC 14.5 H RBC 2.41 L Hgb 8.2 L Hct 24.0 L MCV 100 H MCH 34 H MCHC RDW 15.8 H [place] % (Auto) [place] # (Auto) Seg Neutrophils % Seg Neuts % (Manual) Lymphocytes % (Manual) Monocytes % (Manual) Seg Neutrophils # Seg Neutrophils # Man Lymphocytes # (Manual) Monocytes # (Manual) PT APTT D-Dimer Heparin Anti-Xa Level ABG pH POC ABG pCO2 POC ABG pO2 ABG pO2 ABG Hemoglobin ABG Oxyhemoglobin ABG Sodium ABG Potassium ABG Chloride ABG Glucose Carboxyhemoglobin Sodium 146 H D Potassium 3.4 L D Chloride Carbon Dioxide BUN 62 H Creatinine Glucose 174 H POC Glucose 162 H Lactic Acid Calcium Phosphorus Magnesium Ferritin AST ALT Alkaline Phosphatase Lactate Dehydrogenase Troponin T C-Reactive Protein Total Protein Albumin HDL Cholesterol Arterial Blood Glucose Arterial Blood Ionized Calcium Urine WBC (Auto) Urine Creatinine 06/10/21 06/10/21 06/10/21 05:36 11:43 18:24 WBC RBC Hgb Hct MCV MCH MCHC [place] % (Auto) [place] # (Auto) Seg Neutrophils % Seg Neuts % (Manual) Lymphocytes % (Manual) Monocytes % (Manual) Seg Neutrophils # Seg Neutrophils # Man Lymphocytes # (Manual) Monocytes # (Manual) PT APTT D-Dimer Heparin Anti-Xa Level ABG pH POC ABG pCO2 POC ABG pO2 ABG pO2 ABG Hemoglobin ABG Oxyhemoglobin ABG Sodium ABG Potassium ABG Chloride ABG Glucose Carboxyhemoglobin Sodium Potassium Chloride Carbon Dioxide BUN Creatinine Glucose POC Glucose 149 H 183 H 139 H Lactic Acid Calcium Phosphorus Magnesium Ferritin AST ALT Alkaline Phosphatase Lactate Dehydrogenase Troponin T C-Reactive Protein Total Protein Albumin HDL Cholesterol Arterial Blood Glucose Arterial Blood Ionized Calcium Urine WBC (Auto) Urine Creatinine 06/10/21 06/11/21 06/11/21 23:32 04:17 05:22 WBC RBC Hgb Hct MCV MCH MCHC [place] % (Auto) [place] # (Auto) Seg Neutrophils % Seg Neuts % (Manual) Lymphocytes % (Manual) Monocytes % (Manual) Seg Neutrophils # Seg Neutrophils # Man Lymphocytes # (Manual) Monocytes # (Manual) PT APTT D-Dimer Heparin Anti-Xa Level 0.84 H ABG pH POC ABG pCO2 POC ABG pO2 ABG pO2 ABG Hemoglobin ABG Oxyhemoglobin ABG Sodium ABG Potassium ABG Chloride ABG Glucose Carboxyhemoglobin Sodium Potassium Chloride Carbon Dioxide BUN Creatinine Glucose POC Glucose 149 H 138 H Lactic Acid Calcium Phosphorus Magnesium Ferritin AST ALT Alkaline Phosphatase Lactate Dehydrogenase Troponin T C-Reactive Protein Total Protein Albumin HDL Cholesterol Arterial Blood Glucose Arterial Blood Ionized Calcium Urine WBC (Auto) Urine Creatinine 06/11/21 06/11/21 06/12/21 11:26 23:56 04:44 WBC 15.5 H RBC 2.59 L Hgb 8.6 L Hct 25.8 L MCV 100 H MCH 33 H MCHC RDW 15.3 H [place] % (Auto) [place] # (Auto) Seg Neutrophils % Seg Neuts % (Manual) Lymphocytes % (Manual) Monocytes % (Manual) Seg Neutrophils # Seg Neutrophils # Man Lymphocytes # (Manual) Monocytes # (Manual) PT APTT D-Dimer Heparin Anti-Xa Level ABG pH POC ABG pCO2 POC ABG pO2 ABG pO2 ABG Hemoglobin ABG Oxyhemoglobin ABG Sodium ABG Potassium ABG Chloride ABG Glucose Carboxyhemoglobin Sodium Potassium Chloride Carbon Dioxide BUN Creatinine Glucose POC Glucose 198 H 199 H Lactic Acid Calcium Phosphorus Magnesium Ferritin AST ALT Alkaline Phosphatase Lactate Dehydrogenase Troponin T C-Reactive Protein Total Protein Albumin HDL Cholesterol Arterial Blood Glucose Arterial Blood Ionized Calcium Urine WBC (Auto) Urine Creatinine 06/12/21 06/12/21 06/12/21 04:44 04:44 05:29 WBC RBC Hgb Hct MCV MCH MCHC [place] % (Auto) [place] # (Auto) Seg Neutrophils % Seg Neuts % (Manual) Lymphocytes % (Manual) Monocytes % (Manual) Seg Neutrophils # Seg Neutrophils # Man Lymphocytes # (Manual) Monocytes # (Manual) PT APTT D-Dimer Heparin Anti-Xa Level ABG pH POC ABG pCO2 POC ABG pO2 ABG pO2 ABG Hemoglobin ABG Oxyhemoglobin ABG Sodium ABG Potassium ABG Chloride ABG Glucose Carboxyhemoglobin Sodium 148 H Potassium Chloride Carbon Dioxide BUN 49 H 51 H Creatinine Glucose 222 H 223 H POC Glucose 193 H Lactic Acid Calcium Phosphorus Magnesium 3.20 H Ferritin AST 81 H ALT 83 H Alkaline Phosphatase 215 H Lactate Dehydrogenase Troponin T C-Reactive Protein Total Protein Albumin 3.2 L HDL Cholesterol Arterial Blood Glucose Arterial Blood Ionized Calcium Urine WBC (Auto) Urine Creatinine 06/12/21 06/12/21 06/12/21 11:21 17:55 23:23 WBC RBC Hgb Hct MCV MCH MCHC [place] % (Auto) [place] # (Auto) Seg Neutrophils % Seg Neuts % (Manual) Lymphocytes % (Manual) Monocytes % (Manual) Seg Neutrophils # Seg Neutrophils # Man Lymphocytes # (Manual) Monocytes # (Manual) PT APTT D-Dimer Heparin Anti-Xa Level ABG pH POC ABG pCO2 POC ABG pO2 ABG pO2 ABG Hemoglobin ABG Oxyhemoglobin ABG Sodium ABG Potassium ABG Chloride ABG Glucose Carboxyhemoglobin Sodium Potassium Chloride Carbon Dioxide BUN Creatinine Glucose POC Glucose 185 H 210 H 211 H Lactic Acid Calcium Phosphorus Magnesium Ferritin AST ALT Alkaline Phosphatase Lactate Dehydrogenase Troponin T C-Reactive Protein Total Protein Albumin HDL Cholesterol Arterial Blood Glucose Arterial Blood Ionized Calcium Urine WBC (Auto) Urine Creatinine 06/13/21 06/13/21 06/13/21 04:34 04:34 05:17 WBC 17.2 H RBC 2.56 L Hgb 8.6 L Hct 26.1 L MCV 102 H MCH 34 H MCHC [place] % (Auto) [place] # (Auto) Seg Neutrophils % Seg Neuts % (Manual) Lymphocytes % (Manual) Monocytes % (Manual) Seg Neutrophils # Seg Neutrophils # Man Lymphocytes # (Manual) Monocytes # (Manual) PT APTT D-Dimer Heparin Anti-Xa Level ABG pH POC ABG pCO2 POC ABG pO2 ABG pO2 ABG Hemoglobin ABG Oxyhemoglobin ABG Sodium ABG Potassium ABG Chloride ABG Glucose Carboxyhemoglobin Sodium 149 H Potassium 5.1 H Chloride Carbon Dioxide BUN 52 H Creatinine 1.6 H Glucose 231 H POC Glucose 207 H Lactic Acid Calcium Phosphorus Magnesium Ferritin AST 69 H ALT 74 H Alkaline Phosphatase 197 H Lactate Dehydrogenase Troponin T C-Reactive Protein Total Protein Albumin 3.0 L HDL Cholesterol Arterial Blood Glucose Arterial Blood Ionized Calcium Urine WBC (Auto) Urine Creatinine 06/13/21 06/13/21 06/13/21 10:44 11:07 12:07 WBC RBC Hgb Hct MCV MCH MCHC [place] % (Auto) [place] # (Auto) Seg Neutrophils % Seg Neuts % (Manual) Lymphocytes % (Manual) Monocytes % (Manual) Seg Neutrophils # Seg Neutrophils # Man Lymphocytes # (Manual) Monocytes # (Manual) PT APTT D-Dimer Heparin Anti-Xa Level < 0.10 L ABG pH 7.455 H POC ABG pCO2 POC ABG pO2 ABG pO2 ABG Hemoglobin 8.6 L ABG Oxyhemoglobin ABG Sodium ABG Potassium 4.7 H ABG Chloride ABG Glucose 277 H Carboxyhemoglobin Sodium Potassium Chloride Carbon Dioxide BUN Creatinine Glucose POC Glucose 241 H Lactic Acid Calcium Phosphorus Magnesium Ferritin AST ALT Alkaline Phosphatase Lactate Dehydrogenase Troponin T C-Reactive Protein Total Protein Albumin HDL Cholesterol Arterial Blood Glucose 277 H Arterial Blood Ionized Calcium Urine WBC (Auto) Urine Creatinine 06/13/21 06/13/21 06/13/21 17:35 21:13 23:19 WBC RBC Hgb Hct MCV MCH MCHC [place] % (Auto) [place] # (Auto) Seg Neutrophils % Seg Neuts % (Manual) Lymphocytes % (Manual) Monocytes % (Manual) Seg Neutrophils # Seg Neutrophils # Man Lymphocytes # (Manual) Monocytes # (Manual) PT APTT D-Dimer Heparin Anti-Xa Level 0.92 H ABG pH POC ABG pCO2 POC ABG pO2 ABG pO2 ABG Hemoglobin ABG Oxyhemoglobin ABG Sodium ABG Potassium ABG Chloride ABG Glucose Carboxyhemoglobin Sodium Potassium Chloride Carbon Dioxide BUN Creatinine Glucose POC Glucose 233 H 232 H Lactic Acid Calcium Phosphorus Magnesium Ferritin AST ALT Alkaline Phosphatase Lactate Dehydrogenase Troponin T C-Reactive Protein Total Protein Albumin HDL Cholesterol Arterial Blood Glucose Arterial Blood Ionized Calcium Urine WBC (Auto) Urine Creatinine 06/14/21 06/14/21 06/14/21 04:21 04:21 05:36 WBC 15.6 H RBC 2.26 L Hgb 7.6 L Hct 22.9 L MCV 101 H MCH 34 H MCHC RDW 15.3 H [place] % (Auto) [place] # (Auto) Seg Neutrophils % Seg Neuts % (Manual) Lymphocytes % (Manual) Monocytes % (Manual) Seg Neutrophils # Seg Neutrophils # Man Lymphocytes # (Manual) Monocytes # (Manual) PT APTT D-Dimer Heparin Anti-Xa Level ABG pH POC ABG pCO2 POC ABG pO2 ABG pO2 ABG Hemoglobin ABG Oxyhemoglobin ABG Sodium ABG Potassium ABG Chloride ABG Glucose Carboxyhemoglobin Sodium 149 H Potassium Chloride 107.8 H Carbon Dioxide BUN 66 H Creatinine 1.8 H Glucose 192 H POC Glucose 166 H Lactic Acid Calcium Phosphorus Magnesium Ferritin AST ALT Alkaline Phosphatase Lactate Dehydrogenase Troponin T C-Reactive Protein Total Protein Albumin HDL Cholesterol Arterial Blood Glucose Arterial Blood Ionized Calcium Urine WBC (Auto) Urine Creatinine 06/14/21 06/14/21 06/14/21 12:21 17:07 23:14 WBC RBC Hgb Hct MCV MCH MCHC [place] % (Auto) [place] # (Auto) Seg Neutrophils % Seg Neuts % (Manual) Lymphocytes % (Manual) Monocytes % (Manual) Seg Neutrophils # Seg Neutrophils # Man Lymphocytes # (Manual) Monocytes # (Manual) PT APTT D-Dimer Heparin Anti-Xa Level ABG pH POC ABG pCO2 POC ABG pO2 ABG pO2 ABG Hemoglobin ABG Oxyhemoglobin ABG Sodium ABG Potassium ABG Chloride ABG Glucose Carboxyhemoglobin Sodium Potassium Chloride Carbon Dioxide BUN Creatinine Glucose POC Glucose 190 H 172 H 195 H Lactic Acid Calcium Phosphorus Magnesium Ferritin AST ALT Alkaline Phosphatase Lactate Dehydrogenase Troponin T C-Reactive Protein Total Protein Albumin HDL Cholesterol Arterial Blood Glucose Arterial Blood Ionized Calcium Urine WBC (Auto) Urine Creatinine 06/15/21 06/15/21 06/15/21 05:08 05:08 05:47 WBC 15.3 H RBC 2.23 L Hgb 7.3 L Hct 22.5 L MCV 101 H MCH 33 H MCHC [place] % (Auto) [place] # (Auto) Seg Neutrophils % Seg Neuts % (Manual) Lymphocytes % (Manual) Monocytes % (Manual) Seg Neutrophils # Seg Neutrophils # Man Lymphocytes # (Manual) Monocytes # (Manual) PT APTT D-Dimer Heparin Anti-Xa Level ABG pH POC ABG pCO2 POC ABG pO2 ABG pO2 ABG Hemoglobin ABG Oxyhemoglobin ABG Sodium ABG Potassium ABG Chloride ABG Glucose Carboxyhemoglobin Sodium 147 H Potassium Chloride Carbon Dioxide BUN 60 H Creatinine 1.6 H Glucose 158 H POC Glucose 150 H Lactic Acid Calcium 8.2 L Phosphorus 5.90 H Magnesium 3.20 H Ferritin AST ALT Alkaline Phosphatase Lactate Dehydrogenase Troponin T C-Reactive Protein Total Protein Albumin HDL Cholesterol Arterial Blood Glucose Arterial Blood Ionized Calcium Urine WBC (Auto) Urine Creatinine 06/15/21 06/15/21 06/15/21 10:19 11:25 17:47 WBC RBC Hgb Hct MCV MCH MCHC [place] % (Auto) [place] # (Auto) Seg Neutrophils % Seg Neuts % (Manual) Lymphocytes % (Manual) Monocytes % (Manual) Seg Neutrophils # Seg Neutrophils # Man Lymphocytes # (Manual) Monocytes # (Manual) PT APTT D-Dimer Heparin Anti-Xa Level ABG pH 7.471 H POC ABG pCO2 POC ABG pO2 ABG pO2 ABG Hemoglobin ABG Oxyhemoglobin ABG Sodium ABG Potassium ABG Chloride ABG Glucose Carboxyhemoglobin Sodium Potassium Chloride Carbon Dioxide BUN Creatinine Glucose POC Glucose 133 H 201 H Lactic Acid Calcium Phosphorus Magnesium Ferritin AST ALT Alkaline Phosphatase Lactate Dehydrogenase Troponin T C-Reactive Protein Total Protein Albumin HDL Cholesterol Arterial Blood Glucose Arterial Blood Ionized Calcium Urine WBC (Auto) Urine Creatinine 10/07/21 10/07/21 10/08/21 23:43 Unknown 04:31 WBC 13.8 H RBC 2.23 L Hgb 7.5 L Hct 22.4 L MCV 101 H MCH 34 H MCHC [place] % (Auto) [place] # (Auto) Seg Neutrophils % Seg Neuts % (Manual) Lymphocytes % (Manual) Monocytes % (Manual) Seg Neutrophils # Seg Neutrophils # Man Lymphocytes # (Manual) Monocytes # (Manual) PT APTT D-Dimer Heparin Anti-Xa Level ABG pH POC ABG pCO2 POC ABG pO2 ABG pO2 ABG Hemoglobin ABG Oxyhemoglobin ABG Sodium ABG Potassium ABG Chloride ABG Glucose Carboxyhemoglobin Sodium Potassium Chloride Carbon Dioxide BUN Creatinine Glucose POC Glucose 148 H Lactic Acid Calcium Phosphorus Magnesium Ferritin AST ALT Alkaline Phosphatase Lactate Dehydrogenase Troponin T C-Reactive Protein Total Protein Albumin HDL Cholesterol Arterial Blood Glucose Arterial Blood Ionized Calcium Urine WBC (Auto) Urine Creatinine 74.7 H 06/16/21 06/16/21 06/16/21 04:31 05:48 11:47 WBC RBC Hgb Hct MCV MCH MCHC [place] % (Auto) [place] # (Auto) Seg Neutrophils % Seg Neuts % (Manual) Lymphocytes % (Manual) Monocytes % (Manual) Seg Neutrophils # Seg Neutrophils # Man Lymphocytes # (Manual) Monocytes # (Manual) PT APTT D-Dimer Heparin Anti-Xa Level ABG pH POC ABG pCO2 POC ABG pO2 ABG pO2 ABG Hemoglobin ABG Oxyhemoglobin ABG Sodium ABG Potassium ABG Chloride ABG Glucose Carboxyhemoglobin Sodium Potassium Chloride Carbon Dioxide BUN 49 H Creatinine 1.3 H Glucose 194 H POC Glucose 184 H 190 H Lactic Acid Calcium Phosphorus 5.40 H Magnesium 2.90 H Ferritin AST ALT Alkaline Phosphatase Lactate Dehydrogenase Troponin T C-Reactive Protein Total Protein Albumin HDL Cholesterol Arterial Blood Glucose Arterial Blood Ionized Calcium Urine WBC (Auto) Urine Creatinine 06/16/21 06/16/21 06/16/21 18:51 18:51 23:13 WBC 12.4 H RBC 2.22 L Hgb 7.3 L Hct 22.4 L MCV 101 H MCH 33 H MCHC [place] % (Auto) [place] # (Auto) Seg Neutrophils % Seg Neuts % (Manual) Lymphocytes % (Manual) Monocytes % (Manual) Seg Neutrophils # Seg Neutrophils # Man Lymphocytes # (Manual) Monocytes # (Manual) PT APTT 64.1 H* D-Dimer Heparin Anti-Xa Level ABG pH POC ABG pCO2 POC ABG pO2 ABG pO2 ABG Hemoglobin ABG Oxyhemoglobin ABG Sodium ABG Potassium ABG Chloride ABG Glucose Carboxyhemoglobin Sodium Potassium Chloride Carbon Dioxide BUN Creatinine Glucose POC Glucose 160 H Lactic Acid Calcium Phosphorus Magnesium Ferritin AST ALT Alkaline Phosphatase Lactate Dehydrogenase Troponin T C-Reactive Protein Total Protein Albumin HDL Cholesterol Arterial Blood Glucose Arterial Blood Ionized Calcium Urine WBC (Auto) Urine Creatinine 06/17/21 06/17/21 06/17/21 04:19 05:02 11:56 WBC RBC Hgb Hct MCV MCH MCHC [place] % (Auto) [place] # (Auto) Seg Neutrophils % Seg Neuts % (Manual) Lymphocytes % (Manual) Monocytes % (Manual) Seg Neutrophils # Seg Neutrophils # Man Lymphocytes # (Manual) Monocytes # (Manual) PT APTT D-Dimer Heparin Anti-Xa Level 1.53 H ABG pH POC ABG pCO2 POC ABG pO2 ABG pO2 ABG Hemoglobin ABG Oxyhemoglobin ABG Sodium ABG Potassium ABG Chloride ABG Glucose Carboxyhemoglobin Sodium Potassium Chloride Carbon Dioxide BUN Creatinine Glucose POC Glucose 167 H 166 H Lactic Acid Calcium Phosphorus Magnesium Ferritin AST ALT Alkaline Phosphatase Lactate Dehydrogenase Troponin T C-Reactive Protein Total Protein Albumin HDL Cholesterol Arterial Blood Glucose Arterial Blood Ionized Calcium Urine WBC (Auto) Urine Creatinine 06/17/21 06/17/21 06/17/21 17:48 22:42 23:08 WBC RBC Hgb Hct MCV MCH MCHC [place] % (Auto) [place] # (Auto) Seg Neutrophils % Seg Neuts % (Manual) Lymphocytes % (Manual) Monocytes % (Manual) Seg Neutrophils # Seg Neutrophils # Man Lymphocytes # (Manual) Monocytes # (Manual) PT APTT D-Dimer Heparin Anti-Xa Level ABG pH POC ABG pCO2 POC ABG pO2 ABG pO2 ABG Hemoglobin ABG Oxyhemoglobin ABG Sodium ABG Potassium ABG Chloride ABG Glucose Carboxyhemoglobin Sodium Potassium Chloride Carbon Dioxide BUN Creatinine Glucose POC Glucose 159 H 122 H 114 H Lactic Acid Calcium Phosphorus Magnesium Ferritin AST ALT Alkaline Phosphatase Lactate Dehydrogenase Troponin T C-Reactive Protein Total Protein Albumin HDL Cholesterol Arterial Blood Glucose Arterial Blood Ionized Calcium Urine WBC (Auto) Urine Creatinine 06/18/21 06/18/21 06/18/21 05:40 06:20 13:11 WBC RBC 2.19 L Hgb 7.3 L Hct 21.9 L MCV 100 H MCH 33 H MCHC [place] % (Auto) [place] # (Auto) Seg Neutrophils % Seg Neuts % (Manual) Lymphocytes % (Manual) Monocytes % (Manual) Seg Neutrophils # Seg Neutrophils # Man Lymphocytes # (Manual) Monocytes # (Manual) PT APTT D-Dimer Heparin Anti-Xa Level ABG pH POC ABG pCO2 POC ABG pO2 ABG pO2 ABG Hemoglobin ABG Oxyhemoglobin ABG Sodium ABG Potassium ABG Chloride ABG Glucose Carboxyhemoglobin Sodium Potassium Chloride Carbon Dioxide BUN Creatinine Glucose POC Glucose 174 H 149 H Lactic Acid Calcium Phosphorus Magnesium Ferritin AST ALT Alkaline Phosphatase Lactate Dehydrogenase Troponin T C-Reactive Protein Total Protein Albumin HDL Cholesterol Arterial Blood Glucose Arterial Blood Ionized Calcium Urine WBC (Auto) Urine Creatinine 06/18/21 06/18/21 06/18/21 18:50 21:45 23:12 WBC RBC Hgb Hct MCV MCH MCHC [place] % (Auto) [place] # (Auto) Seg Neutrophils % Seg Neuts % (Manual) Lymphocytes % (Manual) Monocytes % (Manual) Seg Neutrophils # Seg Neutrophils # Man Lymphocytes # (Manual) Monocytes # (Manual) PT APTT D-Dimer Heparin Anti-Xa Level ABG pH POC ABG pCO2 POC ABG pO2 ABG pO2 ABG Hemoglobin ABG Oxyhemoglobin ABG Sodium ABG Potassium ABG Chloride ABG Glucose Carboxyhemoglobin Sodium Potassium Chloride Carbon Dioxide BUN Creatinine Glucose POC Glucose 152 H 151 H 178 H Lactic Acid Calcium Phosphorus Magnesium Ferritin AST ALT Alkaline Phosphatase Lactate Dehydrogenase Troponin T C-Reactive Protein Total Protein Albumin HDL Cholesterol Arterial Blood Glucose Arterial Blood Ionized Calcium Urine WBC (Auto) Urine Creatinine 06/19/21 06/19/21 06/19/21 06:20 06:20 11:54 WBC RBC 2.19 L Hgb 7.4 L Hct 22.2 L MCV 102 H MCH 34 H MCHC [place] % (Auto) 11.3 H [place] # (Auto) 1.0 H Seg Neutrophils % Seg Neuts % (Manual) Lymphocytes % (Manual) Monocytes % (Manual) Seg Neutrophils # Seg Neutrophils # Man Lymphocytes # (Manual) Monocytes # (Manual) PT APTT D-Dimer Heparin Anti-Xa Level ABG pH POC ABG pCO2 POC ABG pO2 ABG pO2 ABG Hemoglobin ABG Oxyhemoglobin ABG Sodium ABG Potassium ABG Chloride ABG Glucose Carboxyhemoglobin Sodium 148 H Potassium Chloride 109.4 H Carbon Dioxide BUN 26 H Creatinine Glucose 109 H POC Glucose 131 H Lactic Acid Calcium Phosphorus Magnesium 2.40 H Ferritin AST ALT Alkaline Phosphatase Lactate Dehydrogenase Troponin T C-Reactive Protein Total Protein Albumin HDL Cholesterol Arterial Blood Glucose Arterial Blood Ionized Calcium Urine WBC (Auto) Urine Creatinine 06/19/21 06/19/21 06/19/21 17:21 21:31 23:13 WBC RBC Hgb Hct MCV MCH MCHC [place] % (Auto) [place] # (Auto) Seg Neutrophils % Seg Neuts % (Manual) Lymphocytes % (Manual) Monocytes % (Manual) Seg Neutrophils # Seg Neutrophils # Man Lymphocytes # (Manual) Monocytes # (Manual) PT APTT D-Dimer Heparin Anti-Xa Level ABG pH POC ABG pCO2 POC ABG pO2 ABG pO2 ABG Hemoglobin ABG Oxyhemoglobin ABG Sodium ABG Potassium ABG Chloride ABG Glucose Carboxyhemoglobin Sodium Potassium Chloride Carbon Dioxide BUN Creatinine Glucose POC Glucose 178 H 174 H 216 H Lactic Acid Calcium Phosphorus Magnesium Ferritin AST ALT Alkaline Phosphatase Lactate Dehydrogenase Troponin T C-Reactive Protein Total Protein Albumin HDL Cholesterol Arterial Blood Glucose Arterial Blood Ionized Calcium Urine WBC (Auto) Urine Creatinine 06/20/21 06/20/21 06/20/21 04:18 05:15 11:22 WBC RBC 2.26 L Hgb 7.7 L Hct 22.9 L MCV 101 H MCH 34 H MCHC [place] % (Auto) [place] # (Auto) Seg Neutrophils % Seg Neuts % (Manual) Lymphocytes % (Manual) Monocytes % (Manual) Seg Neutrophils # Seg Neutrophils # Man Lymphocytes # (Manual) Monocytes # (Manual) PT APTT D-Dimer Heparin Anti-Xa Level ABG pH POC ABG pCO2 POC ABG pO2 ABG pO2 ABG Hemoglobin ABG Oxyhemoglobin ABG Sodium ABG Potassium ABG Chloride ABG Glucose Carboxyhemoglobin Sodium Potassium Chloride Carbon Dioxide BUN Creatinine Glucose POC Glucose 119 H 177 H Lactic Acid Calcium Phosphorus Magnesium Ferritin AST ALT Alkaline Phosphatase Lactate Dehydrogenase Troponin T C-Reactive Protein Total Protein Albumin HDL Cholesterol Arterial Blood Glucose Arterial Blood Ionized Calcium Urine WBC (Auto) Urine Creatinine 06/20/21 06/20/21 06/20/21 13:30 17:58 21:24 WBC RBC Hgb Hct MCV MCH MCHC [place] % (Auto) [place] # (Auto) Seg Neutrophils % Seg Neuts % (Manual) Lymphocytes % (Manual) Monocytes % (Manual) Seg Neutrophils # Seg Neutrophils # Man Lymphocytes # (Manual) Monocytes # (Manual) PT APTT D-Dimer Heparin Anti-Xa Level ABG pH POC ABG pCO2 POC ABG pO2 ABG pO2 ABG Hemoglobin ABG Oxyhemoglobin ABG Sodium ABG Potassium ABG Chloride ABG Glucose Carboxyhemoglobin Sodium Potassium Chloride Carbon Dioxide BUN 31 H Creatinine Glucose 196 H POC Glucose 151 H 141 H Lactic Acid Calcium Phosphorus Magnesium Ferritin AST ALT Alkaline Phosphatase Lactate Dehydrogenase Troponin T C-Reactive Protein Total Protein Albumin HDL Cholesterol Arterial Blood Glucose Arterial Blood Ionized Calcium Urine WBC (Auto) Urine Creatinine 06/20/21 06/21/21 06/21/21 23:46 04:07 04:59 WBC RBC Hgb Hct MCV MCH MCHC [place] % (Auto) [place] # (Auto) Seg Neutrophils % Seg Neuts % (Manual) Lymphocytes % (Manual) Monocytes % (Manual) Seg Neutrophils # Seg Neutrophils # Man Lymphocytes # (Manual) Monocytes # (Manual) PT APTT D-Dimer Heparin Anti-Xa Level ABG pH POC ABG pCO2 POC ABG pO2 ABG pO2 ABG Hemoglobin ABG Oxyhemoglobin ABG Sodium ABG Potassium ABG Chloride ABG Glucose Carboxyhemoglobin Sodium Potassium Chloride Carbon Dioxide BUN 36 H Creatinine Glucose 220 H POC Glucose 137 H 213 H Lactic Acid Calcium Phosphorus Magnesium Ferritin AST 79 H ALT 79 H Alkaline Phosphatase 159 H Lactate Dehydrogenase Troponin T C-Reactive Protein Total Protein Albumin 2.6 L HDL Cholesterol Arterial Blood Glucose Arterial Blood Ionized Calcium Urine WBC (Auto) Urine Creatinine 06/21/21 06/21/21 08:10 11:45 WBC RBC 2.13 L Hgb 7.4 L Hct 21.1 L MCV 99 H MCH 35 H MCHC 35 H [place] % (Auto) 9.3 H [place] # (Auto) 0.9 H Seg Neutrophils % Seg Neuts % (Manual) Lymphocytes % (Manual) Monocytes % (Manual) Seg Neutrophils # Seg Neutrophils # Man Lymphocytes # (Manual) Monocytes # (Manual) PT APTT D-Dimer Heparin Anti-Xa Level ABG pH POC ABG pCO2 POC ABG pO2 ABG pO2 ABG Hemoglobin ABG Oxyhemoglobin ABG Sodium ABG Potassium ABG Chloride ABG Glucose Carboxyhemoglobin Sodium Potassium Chloride Carbon Dioxide BUN Creatinine Glucose POC Glucose 176 H Lactic Acid Calcium Phosphorus Magnesium Ferritin AST ALT Alkaline Phosphatase Lactate Dehydrogenase Troponin T C-Reactive Protein Total Protein Albumin HDL Cholesterol Arterial Blood Glucose Arterial Blood Ionized Calcium Urine WBC (Auto) Urine Creatinine Allied health notes reviewed: nursing
--- NOTE | 2021-06-21 13:21 | Progress Note ---
<TOBIAS QUIROS - Last Filed: 06/21/21 16:26> Assessment and Plan Assessment and plan: This is a 65 year old female with HTN, nonepileptic spells, PTSD, close head injury, DM, CAD s/p stents and NM, independence, hyperlipidemia admitted with sepsis, pneumonia, acute proximal respiratory failure, toxic metabolic encephalo jaky, suspected anoxic brain injury, metabolic acidosis Hospital Course to Date: 05/26/21: Updated family at the bedside, Covid test is negative. Will order EEG and neuro consult. Remains intubated, follow clinically. Sedated on Midazolam and Propofol, just received one dose of Lorazepam for witnessed seizure by RN. NSR now, on heparin drip 05/27/21; remains intubated. pending EEG and neuro eval. wean off vent as tolerated. Continue heparin drip per cardiology, replete potassium yesterday, follow BMP. BP noted to be elevated, next started on antihypertensives. 05/28/21; BP noted to be elevated, initiated on antihypertensive, remains intubated. Pending neurology evaluation and EEG. Continue supportive care, follow BMP. 05/29/21: Ordered for MRI brain, continue Keppra, pending EEG. Appreciate neuro recommendation. follow BMP, tolerating TF 05/30/21: Patient remains intubated, pending MRI brain, follow neurology recommendation. EEG showed diffuse slowing. 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 off sedation now, cont to follow. gurded prognosis 06/01: MRI was suggestive of watershed infarct bilaterally and was seen by neurology and recommend to do MRI with gadolinium. Patient is off sedation and still unresponsive. Prognosis is guarded. 06/02: Continue current management. Prognosis is guarded. Patient needs trach. 06/03: Patient is unresponsive spite of all sedatives. Prognosis is guarded to poor. Neurology consult appreciated. 06/04: Patient is unresponsive. Patient is off sedatives. Blood sugar is uncontrolled and I adjusted her insulin. Neurology consult appreciated. Prognosis is guarded to poor. 06/05/21- Patient remains ETT and on vent support. Off sedation with some improvement in neuro status, but is not following commands. Patient is tolerating SBT trial this am, still on the heparin gtt. AM labs is pending. Patient is still hyperglycemic, increased Qhs lantus. Continue supportive care. 06/06/21- Patient is intubated and on the vent. No longer on sedation, awake but unresponsive, tolerating SBT. Hyperglycemia this am, X1 dose of kayaxalate orderd. Persistent hyperglycemia, insulin adjusted. Continue to monitor electrolytes, repeat BMP this afternoon and am labs ordered. 06/07/21- Patient remains intubated and on the vent. Neuro status is unchanged, spontaneously open yes but is not following commands. SBT trial again, plan to place back on a rate overnight. Leukocytosis noted from this morning lab, stat procalc and CRP ordered, d/w CCM no abx at this time. K 5.4 today, kayalalxate given. Continue to monitor leukocytosis and electrolytes. Am labs ordered 06/08/21- Patient remains intubated and on the vent with no significant change in her neuro status. Patient with no BM in 7days, abdominal soft with positive bowel sounds, colace added and PRN ducolax Supp PRN. Continue to monitor leukocytosis and electrolytes, am labs ordered. Plan for trach and PEG, surgery consulted. 06/09/21- Patient remains stable, intubated with no significant change in neuro status. Trach and Peg cancelled for today. Plan for possibly next week. Hyperkalemia again today, chart review for possible meds interaction. X1 dose of kayexalate ordered. Still no BM today. Episode of emesis today, TF held and NGT to LIS until tommorrow. Orders place for KUB today and Chest XR for the morning. Morning labs ordered. 06/10: Continue supportive care. Trach and PEG planned for early next week. KUB and x-ray with no significant change. Opacity still persist. Critical care management noted. Patient still persistent leukocytosis we will continue to monitor mild hypokalemia noted will replace with potassium. Also noted mild hypernatremia. Agree with holding tube feeds at this time 06/11: Discussed with nursing staff to change to history trickle feeds. Patient is planned for trach and PEG Saturday or Saturday. Continue current management also discussed to hold heparin drip for planned procedure with noted timeframe. We will recheck labs to ensure correction of electrolytes. 06/12/21- Patient's status is unchanged. No significant events overnight. Plan for trach and PEG today. TF and heparin gtt on hold. Continue supportive care. Continue to monitor electrolytes, am labs ordered. 06/13/21- Patient is s/p trach and PEG. D/w surgery okay to use PEGTube and restart TF. Heparin gtt was also restarted per protocol. Persistent hypernatremia and FWF increased for 48hrs, mild hyperkalemia noted no intervention at this time. Continue to monitor renal function and electrolytes, am labs ordered. 06/14: Transition to PO anticoagulation from heparin gtt tomorrow. plan to place on tpiece tomorrow. 06/15: Patient spiked a temp today and was root cultured, h/h decreasing and stool occult ordered. Increase in insulin. T piece trials today. Small volume emesis x2 06/16; patient is on T-piece, On heparin drip for A. fib, will transition to Eliquis , I discussed the case with material manager 06/17; tracheal cultures positive for gram-negative rods, ordered cefepime, f ollow cultures Consider ID consult 06/18 no significant change, patient receiving cefepime[sputum cultures gram- negative rods] Follow sensitivities, ID if needed 06/19- Patient was place on Tpiece this morning, plan for Tpiece for 12hrs and rest on the vent overnight. Patient remains afebrile, leukocytosis improved, and patient remains on empiric IV abx. D/W [facility] possible ID consult if worsen. 06/20- No significant change in patient status. Patient is tolerating Tpiece, plan to rest on the vent overnight. Patient TMAX 99.8, leukocytosis remains stable, cefepine transition to Rocephin for +Ecoli in sputum. Consider ID consult if febrile. Will continue to monitor, am labs ordered 06/21- Patient remains stable on the vent, continue daily tpiece trial for 12 hrs then rest on the vent at night. Low grade temp noted TMAx 100.7, d/w [facility] ID consult placed for further recommendations. Continue current IV abx for now. Will continue to monitor, am labs ordered. Assessment and Plan Neuro: Toxic metabolic encephalopathy, likely anoxic brain injury, tonic-cloninc seziure; h/o nonepileptic spells, PTSD, closed head injury -Neurology consulted, appreciate recommendations -CT head completed->see results, without acute or large territorial infarct -Per neurology: MRI brain is suggestive of water shed Infarct Bilateral -- mostly related to Hypoperfusion -06/01 repeat MRI brain noted, possible subacute ischemic changes. -Intact cough/gag, pupils sluggish -Keppra -EEG showed no signs of seizure -prn ativan -Patient is off sedation, open eyes spontaneously, pupils reactive, with +gag and cough. -Not following commands, no movement to stimuli Cardio: S/p cardiac arrest, A. fib with RVR, h/o HTN -Currently on Labetalol, Hydralazine, valsartan, & Doxazosin -PRN hydral IV -Cardiology consulted, appreciate recommendations -05/2020 dobutamine thallium stress test showed normal perfusion study. -05/2020 echo showed normal left ventricular systolic function. -NIBP per protocol Resp: Acute hypoxic respiratory failure -CCM consulted, appreciate recommendations - s/p trach on 06/12 -06/15 T piece trials started, currently on T-piece -see RT notes for titration -ABG/CXR -Continuous SP02 monitoring -Scopalamine and robinul for secretions -VAP bundle GI: protein -aspen malnutrition -Ntr consult for TF -PEG placed 06/12 -PPI- Pepcid -BR: senokot, maalox, colace; prn dulcolex -BM: 06/16 : Acute renal injury likely 2/2 to vasomotor nephrology -Renal function remains stable -strict I&O -daily weights -purwick -Trend BMP -Monitor and replete electrolytes as needed -FWF 250 q 4hours -hypernatremia and Cr slightly improving Endo: Hyperglycemia, h/o DM -SSI -Lantus, titrate as needed -Avoid hypoglycemia -accucheck q6 Heme: Leukocytosis -CTA chest without evidence of PE -IV heparin d/t afib -transitioned to PO Eliquis -Trend CBC -Transfuse for hgb<7 ID: Sepsis, Bilateral Lower Lobe Infiltrates -COVID 19 PCR (-) -s/p cefepime 05/25-05/29 -admit cxr with infiltrates, CTA chest with dense dependent consolidation/atelectasis in lungs -Monitor temp and WBC curve -noted spike in temp overnight -CXR, Blood culture, UA, 06/19Sputum culture pos. Ecoli -BC/UC/Tracheal aspirate NGTD from 05/25 -Covid 19 PCR negative -06/07 CRP 28.90 and procal 0.36 -Tracheal aspirate gram-negative rods, empiric antibiotics cefepime ordered, follow culture sensitivities - Cefepine switch to rocephin per sensitivity -Consider ID evaluation if febrile The high probability of a clinically significant, sudden or life threatening deterioration of the [multiple] system(s) required my full and direct attention, intervention and personal management. The aggregate critical care time was [60] minutes. This time is in addition to time spent performing reported procedures but includes the following: [x] Data Review and interpretation [x] Patient assessment and monitoring of vital signs [x] Documentation [x] Medication orders and management Disposition Plan: LTACH pending Total Time Spent with Patient (Minutes): 60 History Interval history: Patient seen and examined at the bedside. Neuro status unchanged, awake and opening eyes spontaneously, but not following any commands. No significant events overnight. Hospitalist Physical - Constitutional Vitals: Temp Pulse Resp BP Pulse Ox 99.8 F H 84 17 120/58 100 06/21/21 11:59 06/21/21 12:00 06/21/21 12:00 06/21/21 12:00 06/21/21 12:00 General appearance: Present: no acute distress, well-nourished - EENT Eyes: Present: PERRL - Neck Neck: Present: normal ROM - Respiratory Respiratory effort: normal Respiratory: bilateral: diminished - Cardiovascular Rhythm: regular Heart Sounds: Present: S1 & S2 - Extremities Extremities: pulses intact, pulses symmetrical Extremity abnormal: edema - Peripheral Assessment Generalized Edema Type: Non-pitting Edema Degree: 1+ Capillary Refill: < 3 seconds Skin Temperature: Warm Peripheral Pulses: within normal limits - Abdominal General gastrointestinal: soft, non-tender, normal bowel sounds - Integumentary Integumentary: Present: clear, warm, dry - Psychiatric Psychiatric: other ([facility]) - Neurologic Neurologic: other ([facility]) - Allied Health Allied health notes reviewed: nursing HEART Score - HEART Score Troponin: Troponin T 0.226 ng/mL (0.00-0.029) H* D 05/25/21 15:19 Results - Labs CBC & Chem 7: 06/21/21 08:10 06/21/21 04:07 Labs: Laboratory Last Values WBC 10.1 K/mm3 (4.5-11.0) 06/21/21 08:10 RBC 2.13 M/mm3 (3.65-5.03) L 06/21/21 08:10 Hgb 7.4 gm/dl (10.1-14.3) L 06/21/21 08:10 Hct 21.1 % (30.3-42.9) L 06/21/21 08:10 MCV 99 fl (79-97) H 06/21/21 08:10 MCH 35 pg (28-32) H 06/21/21 08:10 MCHC 35 % (30-34) H 06/21/21 08:10 RDW 14.6 % (13.2-15.2) 06/21/21 08:10 Plt Count 302 K/mm3 (140-440) 06/21/21 08:10 Lymph % (Auto) 18.7 % (13.4-35.0) 06/21/21 08:10 [place] % (Auto) 9.3 % (0.0-7.3) H 06/21/21 08:10 Eos % (Auto) 2.0 % (0.0-4.3) 06/21/21 08:10 Baso % (Auto) 0.3 % (0.0-1.8) 06/21/21 08:10 Lymph # (Auto) 1.9 K/mm3 (1.2-5.4) 06/21/21 08:10 [place] # (Auto) 0.9 K/mm3 (0.0-0.8) H 06/21/21 08:10 Eos # (Auto) 0.2 K/mm3 (0.0-0.4) 06/21/21 08:10 Baso # (Auto) 0.0 K/mm3 (0.0-0.1) 06/21/21 08:10 Add Manual Diff Complete 06/08/21 04:25 Total Counted 100 06/08/21 04:25 Seg Neutrophils % 69.7 % (40.0-70.0) 06/21/21 08:10 Seg Neuts % (Manual) 76.0 % (40.0-70.0) H 06/08/21 04:25 Band Neutrophils % 4.0 % 06/08/21 04:25 Lymphocytes % (Manual) 6.0 % (13.4-35.0) L 06/08/21 04:25 Monocytes % (Manual) 8.0 % (0.0-7.3) H 06/08/21 04:25 Eosinophils % (Manual) 1.0 % (0.0-4.3) 06/08/21 04:25 Metamyelocytes % 3.0 % 06/08/21 04:25 Myelocytes % 2.0 % 06/08/21 04:25 Nucleated RBC % Not Reportable 06/08/21 04:25 Seg Neutrophils # 7.0 K/mm3 (1.8-7.7) 06/21/21 08:10 Seg Neutrophils # Man 12.0 K/mm3 (1.8-7.7) H 06/08/21 04:25 Band Neutrophils # 0.6 K/mm3 06/08/21 04:25 Lymphocytes # (Manual) 0.9 K/mm3 (1.2-5.4) L 06/08/21 04:25 Abs React Lymphs (Man) 0.0 K/mm3 06/08/21 04:25 Monocytes # (Manual) 1.3 K/mm3 (0.0-0.8) H 06/08/21 04:25 Eosinophils # (Manual) 0.2 K/mm3 (0.0-0.4) 06/08/21 04:25 Basophils # (Manual) 0.0 K/mm3 (0.0-0.1) 06/08/21 04:25 Metamyelocytes # 0.5 K/mm3 06/08/21 04:25 Myelocytes # 0.3 K/mm3 06/08/21 04:25 Promyelocytes # 0.0 K/mm3 06/08/21 04:25 Blast Cells # 0.0 K/mm3 06/08/21 04:25 WBC Morphology Not Reportable 06/08/21 04:25 Hypersegmented Neuts Not Reportable 06/08/21 04:25 Hyposegmented Neuts Not Reportable 06/08/21 04:25 Hypogranular Neuts Not Reportable 06/08/21 04:25 Smudge Cells Not Reportable 06/08/21 04:25 Toxic Granulation Not Reportable 06/08/21 04:25 Toxic Vacuolation Not Reportable 06/08/21 04:25 Dohle Bodies Not Reportable 06/08/21 04:25 Pelger-Huet Anomaly Not Reportable 06/08/21 04:25 Peter Rods Not Reportable 06/08/21 04:25 Platelet Estimate Consistent w auto 06/08/21 04:25 Clumped Platelets Not Reportable 06/08/21 04:25 Plt Clumps, EDTA Not Reportable 06/08/21 04:25 Large Platelets Not Reportable 06/08/21 04:25 Giant Platelets Not Reportable 06/08/21 04:25 Platelet Satelliting Not Reportable 06/08/21 04:25 Plt Morphology Comment Not Reportable 06/08/21 04:25 RBC Morphology Not Reportable 06/08/21 04:25 Dimorphic RBCs Not Reportable 06/08/21 04:25 Polychromasia Not Reportable 06/08/21 04:25 Hypochromasia Not Reportable 06/08/21 04:25 Poikilocytosis Not Reportable 06/08/21 04:25 Anisocytosis Not Reportable 06/08/21 04:25 Microcytosis Not Reportable 06/08/21 04:25 Macrocytosis Not Reportable 06/08/21 04:25 Spherocytes Not Reportable 06/08/21 04:25 Pappenheimer Bodies Not Reportable 06/08/21 04:25 Sickle Cells Not Reportable 06/08/21 04:25 Target Cells Not Reportable 06/08/21 04:25 Tear Drop Cells Not Reportable 06/08/21 04:25 Ovalocytes Not Reportable 06/08/21 04:25 Helmet Cells Not Reportable 06/08/21 04:25 [place] Bodies Not Reportable 06/08/21 04:25 [place] Rings Not Reportable 06/08/21 04:25 Lin Cells Not Reportable 06/08/21 04:25 Bite Cells Not Reportable 06/08/21 04:25 Crenated Cell Not Reportable 06/08/21 04:25 Elliptocytes Not Reportable 06/08/21 04:25 Acanthocytes (Spur) Not Reportable 06/08/21 04:25 Rouleaux Not Reportable 06/08/21 04:25 Hemoglobin C Crystals Not Reportable 06/08/21 04:25 Schistocytes Not Reportable 06/08/21 04:25 Malaria parasites Not Reportable 06/08/21 04:25 Shravan Bodies Not Reportable 06/08/21 04:25 Hem Pathologist Commnt No 06/08/21 04:25 PT 14.5 Sec. (12.2-14.9) 06/16/21 18:51 INR 1.08 (0.87-1.13) 06/16/21 18:51 APTT 64.1 Sec. (24.2-36.6) H* 06/16/21 18:51 D-Dimer > 52903 ng/mlDDU (0-234) H 05/25/21 09: Heparin Anti-Xa Level 1.53 U.I./ml (0.3-0.7) H 06/17/21 04:19 ABG pH 7.471 (7.320-7.450) H 06/15/21 10:19 POC ABG pCO2 40.4 mmHg (32.0-48.0) 06/15/21 10:19 ABG pCO2 30.3 mm Hg 05/29/21 05:28 POC ABG pO2 90.1 mmHg (83-108) 06/15/21 10:19 ABG pO2 96.2 mm Hg (80.0-90.0) H 05/29/21 05:28 POC ABG HCO3 28.8 06/15/21 10:19 ABG HCO3 24.0 mmol/L (20.0-26.0) 05/29/21 05:28 ABG O2 Saturation 97.4 (0-100) 06/15/21 10:19 ABG O2 Content 10.3 (0.0-44) 05/29/21 05:28 POC ABG Base Excess 4.8 06/15/21 10:19 ABG Base Excess 1.2 mmol/L (-2.0-3.0) 05/29/21 05:28 ABG Hemoglobin 8.6 (12.0-17.5) L 06/13/21 11:07 ABG Oxyhemoglobin 96.0 (94-98) 06/15/21 10:19 ABG Carboxyhemoglobin 1.6 % (0.0-5.0) 05/29/21 05:28 ABG Methemoglobin 0.3 (0.0-1.5) 06/13/21 11:07 ABG Sodium 144.0 mmol/L (136.0-145.0) 06/13/21 11:07 ABG Potassium 4.7 mmol/L (3.40-4.50) H 06/13/21 11:07 ABG Chloride 107.0 mmol/L (98-107) 06/13/21 11:07 ABG Glucose 277 mg/dL (65-95) H 06/13/21 11:07 Oxyhemoglobin 96.0 % (95.0-99.0) 05/29/21 05:28 Carboxyhemoglobin 1.5 (0.5-1.5) 06/15/21 10:19 FiO2 30 % 05/29/21 05:28 FiO2 % 40 06/15/21 10:19 Sodium 143 mmol/L (137-145) 06/21/21 04:07 Potassium 4.7 mmol/L (3.6-5.0) 06/21/21 04:07 Chloride 104.7 mmol/L (98-107) 06/21/21 04:07 Carbon Dioxide 25 mmol/L (22-30) 06/21/21 04:07 Anion Gap 18 mmol/L 06/21/21 04:07 BUN 36 mg/dL (7-17) H 06/21/21 04:07 Creatinine 1.2 mg/dL (0.6-1.2) 06/21/21 04:07 Estimated GFR 54 ml/min 06/21/21 04:07 BUN/Creatinine Ratio 30 % 06/21/21 04:07 Glucose 220 mg/dL (65-100) H 06/21/21 04:07 POC Glucose 176 mg/dL (70-105) H 06/21/21 11:45 Lactic Acid 2.30 mmol/L (0.7-2.0) H* 05/26/21 05:49 Calcium 8.5 mg/dL (8.4-10.2) 06/21/21 04:07 Phosphorus 5.40 mg/dL (2.5-4.5) H 06/16/21 04:31 Magnesium 2.40 mg/dL (1.7-2.3) H 06/19/21 06:20 Ferritin 321.6 ng/mL (10.0-200.0) H 05/25/21 09:21 Total Bilirubin 0.20 mg/dL (0.1-1.2) 06/21/21 04:07 Direct Bilirubin < 0.2 mg/dL (0-0.2) 05/25/21 09:21 Indirect Bilirubin 0.2 mg/dL 05/25/21 09:21 AST 79 units/L (5-40) H 06/21/21 04:07 ALT 79 units/L (7-56) H 06/21/21 04:07 Alkaline Phosphatase 159 units/L (35-129) H 06/21/21 04:07 Lactate Dehydrogenase 445 units/L (91-180) H 05/25/21 09:21 Troponin T 0.226 ng/mL (0.00-0.029) H* D 05/25/21 15:19 C-Reactive Protein 28.90 mg/dL (0.00-1.30) H 06/07/21 14:52 NT-Pro-B Natriuret Pep 173.2 pg/mL (0-900) 05/25/21 09: Total Protein 6.5 g/dL (6.3-8.2) 06/21/21 04:07 Albumin 2.6 g/dL (3.9-5) L 06/21/21 04:07 Albumin/Globulin Ratio 0.7 % 06/21/21 04:07 Triglycerides 124 mg/dL (2-149) 05/30/21 11:19 Cholesterol 198 mg/dL (50-199) 05/25/21 15:19 LDL Cholesterol Direct 80 mg/dL (50-130) 05/25/21 15:19 HDL Cholesterol 64 mg/dL (40-59) H 05/25/21 15:19 Cholesterol/HDL Ratio 3.09 % 05/25/21 15:19 Procalcitonin 0.36 ng/mL (<0.15) 06/07/21 14:52 Arterial Blood Glucose 277 mg/dL (65-95) H 06/13/21 11:07 Arterial Blood Ionized Calcium 4.6 mg/dL (4.6-5.3) 06/02/21 04:13 Urine Color Yellow (Yellow) 06/15/21 Unknown Urine Turbidity Slightly-cloudy (Clear) 06/15/21 Unknown Urine pH 6.0 (5.0-7.0) 06/15/21 Unknown Ur Specific [place] 1.013 (1.003-1.030) 06/15/21 Unknown Urine Protein <15 mg/dl mg/dL (Negative) 06/15/21 Unknown Urine Glucose (UA) Neg mg/dL (Negative) 06/15/21 Unknown Urine Ketones Neg mg/dL (Negative) 06/15/21 Unknown Urine Blood Mod (Negative) 06/15/21 Unknown Urine Nitrite Neg (Negative) 06/15/21 Unknown Ur Reducing Substances Not Reportable 06/15/21 Unknown Urine Bilirubin Neg (Negative) 06/15/21 Unknown Urine Ictotest Not Reportable 06/15/21 Unknown Urine Urobilinogen < 2.0 mg/dL (<2.0) 06/15/21 Unknown Ur Leukocyte Esterase Mod (Negative) 06/15/21 Unknown Urine WBC (Auto) 3.0 /HPF (0.0-6.0) 06/15/21 Unknown Urine RBC (Auto) 3.0 /HPF (0.0-6.0) 06/15/21 Unknown U Epithel Cells (Auto) 2.0 /HPF (0-13.0) 06/15/21 Unknown Urine Bacteria (Auto) 1+ /HPF (Negative) 06/15/21 Unknown Urine Mucus Few /HPF 06/15/21 Unknown Urine Yeast (Budding) Few /HPF 06/15/21 Unknown Urine Osmolality 430 Mosm/kg 06/15/21 Unknown Urine Creatinine 74.7 mg/dL (0.1-20.0) H 06/15/21 Unknown Urine Sodium 14 mmol/L 06/15/21 Unknown Coronavirus (PCR) Negative (Negative) 05/30/21 08:15 Blood Type O POSITIVE 06/15/21 08:00 Antibody Screen Negative 06/15/21 08:00 Tan/IV: Voiding Method External Female Catheter Active Medications - Current Medications Current Medications: Generic Name Dose Route Start Last Admin Trade Name Freq PRN Reason Stop Dose Admin Acetaminophen 650 mg 05/25/21 13:48 05/28/21 04:14 Acetaminophen 325 Mg Tab PO 650 mg Q6H PRN Administration Pain MILD(1-3)/Fever >100.5/SOTOMAYOR Acetylcysteine 200 mg 06/20/21 16:00 06/21/21 05:28 Acetylcysteine 20% 200 Mg/1 Ml *For Inhalation Use* INHALATION 06/25/21 15:59 Not Given Q8HRT ABDIRAHMAN Lipase/Protease/Amylase 1 each 05/26/21 10:00 Lipase 10,500/Protease 25,000/Amylase 43,750 (Units) Dr Munguia FEEDTUBE PRN PRN For Clogged Feeding Tube Apixaban 5 mg 06/16/21 22:00 06/21/21 10:50 Apixaban 5 Mg Tab PO 5 mg Q12HR ABDIRAHMAN Administration Protocol Bisacodyl 10 mg 06/08/21 10:00 Bisacodyl 10 Mg Rect Supp NM QDAY PRN Constipation Dextrose 50 ml 05/28/21 14:28 Dextrose 50% In Water (25gm) 50 Ml Syringe IV Q30MIN PRN Hypoglycemia Protocol Docusate Sodium 100 mg 06/08/21 10:00 06/21/21 10:53 Docusate Sodium 100 Mg/10 Ml Oral Liqd PO Not Given BID ABDIRAHMAN Doxazosin Mesylate 2 mg 06/01/21 12:00 06/21/21 10:53 Doxazosin 1 Mg Tab PO Not Given BID ABDIRAHMAN Famotidine 20 mg 05/29/21 10:00 06/21/21 10:50 Famotidine 20 Mg Tab FEEDTUBE 20 mg BID ABDIRAHMAN Administration Hydralazine HCl 10 mg 06/01/21 11:43 06/07/21 17:23 Hydralazine 20 Mg/1 Ml Inj IV 10 mg Q4HR PRN Administration SBP >160 Hydralazine HCl 50 mg 06/03/21 22:00 06/21/21 05:21 Hydralazine 25 Mg Tab PO 50 mg Q8HR ABDIRAHMAN Administration Hydrophilic Ointment 1 applic 05/25/21 19:04 Lip Therapy Vaseline TP Q2HR PRN Dry Lips Ceftriaxone Sodium 2 gm in 100 mls @ 200 mls/hr 06/20/21 10:00 06/21/21 10:51 Rocephin/Ns 2 Gm/100 Ml IV 06/23/21 10:29 200 mls/hr Q24H ABDIRAHMAN Administration Protocol Insulin Glargine 30 units 06/15/21 22:00 06/20/21 22:06 Insulin Glargine 100 Units/Ml SUB-Q 30 units QHS ABDIRAHMAN Administration Insulin Human Lispro 0 unit 05/29/21 12:00 06/21/21 05:21 Insulin Lispro 100 Unit/Ml SUB-Q 4 unit Q6HR ABDIRAHMAN Administration Protocol Labetalol HCl 300 mg 06/03/21 13:40 06/21/21 10:54 Labetalol 100 Mg Tab PO Not Given BID ABDIRAHMAN Levetiracetam 250 mg 06/01/21 22:00 06/21/21 10:50 Levetiracetam 500 Mg/5 Ml Oral Liqd FEEDTUBE 250 mg Q12HR ABDIRAHMAN Administration Multi-Ingred Cream/Lotion/Oil/Oint 1 applic 05/25/21 19:04 Mineral Oil/Petrolatum, White Ophth Oint 3.5 Gm OU Q4HR PRN Dry Eye(s) Polyethylene Glycol 17 gm 06/05/21 11:00 06/20/21 09:49 Polyethylene Glycol 3350 17 Gm Powder PO 17 gm QDAY ABDIRAHMAN Administration Scopolamine 1 each 06/20/21 10:00 06/20/21 09:48 Scopolamine Transdermal Patch 72 Hr TD 1 each Q3D ABDIRAHMAN Administration Senna/Docusate Sodium 1 tab 05/25/21 22:00 06/21/21 10:54 Sennosides/Docusate Sodium 8.6/50 Mg Tab FEEDTUBE Not Given BID ABDIRAHMAN Simple Syrup 15 ml 05/26/21 10:00 Simple Syrup 15 Ml FEEDTUBE PRN PRN Hypoglycemia Simple Syrup 30 ml 05/26/21 10:00 Simple Syrup 15 Ml FEEDTUBE PRN PRN Hypoglycemia Sodium Bicarbonate 325 mg 05/26/21 10:00 Sodium Bicarbonate 325 Mg Tab FEEDTUBE PRN PRN For Clogged Feeding Tube Sodium Chloride 10 ml 05/25/21 22:00 06/21/21 10:52 Sodium Chloride 0.9% 10 Ml Flush Syringe IV 10 ml BID ABDIRAHMAN Administration Sodium Chloride 10 ml 05/25/21 13:48 06/04/21 03:57 Sodium Chloride 0.9% 10 Ml Flush Syringe IV 10 ml PRN PRN Administration LINE FLUSH Valsartan 160 mg 06/11/21 10:00 06/21/21 10:53 Valsartan 160mg Tab PO Not Given BID ABDIRAHMAN Nutrition/Malnutrition Assess - Dietary Evaluation Nutrition/Malnutrition Findings: Nutrition Notes Start: 05/26/21 09:00 Freq: Status: Active Protocol: Document 06/19/21 15:49 GB (Rec: 06/19/21 15:57 GB [id number]) Nutrition Notes Initial or Follow up Reassessment Current Diagnosis COPD,Diabetes,Sepsis, Hypertension,Respiratory Failure Other Pertinent Diagnosis cardiac arrest, seizure disorder, (06/12: Trach/PEG) Current Diet NPO, Tube feeding glucerna 1.2 @50 Labs/Tests 06/19: Na 148, BUN 26, glucose 109, Mg 2.4 Pertinent Medications reviewed Height 5 ft 4 in Weight 63 kg [place] Body Weight (kg) 54.54 BMI 23.8 Weight change and time frame -6.6% since admission No new weights after 05/30 Weight Status Appropriate Subjective/Other Information 06/12: Trach/PEG 06/12: TF formula changed to glucerna 1.2 r/t altered labs and now with trach/peg Last BM 06/17 06/19: waiting for placement SNF vs Home w/home health depending on T-piece tolerance Percent of energy/protein needs met: TF goal rate meets 75% or greater of estimated energy needs Burn Absent Trauma Absent GI Symptoms None Difficulty In Swallowing Food Allergy No Current % PO Other Minimum of two criteria No #1 Nutrition Diagnosis Inadequate oral intake Comments: 06/02: On vent. TF continues. 06/07: Ventilation continues, TF continues. 06/13: Trach/PEG on 06/12, change formula to glucerna 1.2 06/19: T/P continues, TF glucerna 1.2 @50ml/hr Etiology ARF As Evidenced by Signs and Symptoms pt on vent and unable to consume PO Diagnosis Progress(for reassessment Continues documentation) Is patient on ventilator? Yes Is Patient Ambulatory and/or Out of Bed No [facility] 1385.676 Kcal/Kg value to use for calculation 23 Approximate Energy Requirements Using 1449 kcal/Kg Calculation Used for Recommendations Kcal/kg Additional Notes Protein: (1-1.5g/kg @63kg) 63- 95g Fluid: 1 ml/kcal or per MD Nutrition Intervention Change Diet Order: Continue NPO Nutrition Support: Glucerna 1.2 at 50 ml/hr Flush 75 ml q4h 06/07: continues 06/13: Trach/PEG on 06/12, change formula to glucerna 1.2 06/19: Glucerna 1.2 at 50ml/hr continues Kcal 1,440 Protein (gm) 72 Goal #1 Meet 75% or greater of protein and energy needs via TF 06/13: TF at goal meets 100% estimated energy needs: met, continues 06/19: met continues Goal #2 Change TF formula. Complete current vital 1.2 bottle, change to glucerna 1.2 r/t DM and related lab results 06/19: met, resolved Follow-Up By: 06/26/21 Additional Comments f/u: TF tolerance, new weights available <KASHIF MOORE R - Last Filed: 06/22/21 09:49> Assessment and Plan Assessment and plan: I saw and evaluated the patient on 06/21/21. I agree with the findings and the plan of care as documented in the Nurse Practitioner's~note, Hospitalist Physical - Constitutional Vitals: Temp Pulse Resp BP Pulse Ox 100.0 F H 94 H 18 151/66 100 06/22/21 08:00 06/22/21 08:10 06/22/21 08:10 06/22/21 08:10 06/22/21 08:10 HEART Score - HEART Score Troponin: Troponin T 0.226 ng/mL (0.00-0.029) H* D 05/25/21 15:19 Results - Labs CBC & Chem 7: 06/22/21 04:36 06/22/21 04:36 Labs: Laboratory Last Values WBC 8.9 K/mm3 (4.5-11.0) 06/22/21 04:36 RBC 2.38 M/mm3 (3.65-5.03) L 06/22/21 04:36 Hgb 8.0 gm/dl (10.1-14.3) L 06/22/21 04:36 Hct 23.7 % (30.3-42.9) L 06/22/21 04:36 MCV 100 fl (79-97) H 06/22/21 04:36 MCH 33 pg (28-32) H 06/22/21 04:36 MCHC 34 % (30-34) 06/22/21 04:36 RDW 14.7 % (13.2-15.2) 06/22/21 04:36 Plt Count 348 K/mm3 (140-440) 06/22/21 04:36 Lymph % (Auto) 18.7 % (13.4-35.0) 06/21/21 08:10 [place] % (Auto) 9.3 % (0.0-7.3) H 06/21/21 08:10 Eos % (Auto) 2.0 % (0.0-4.3) 06/21/21 08:10 Baso % (Auto) 0.3 % (0.0-1.8) 06/21/21 08:10 Lymph # (Auto) 1.9 K/mm3 (1.2-5.4) 06/21/21 08:10 [place] # (Auto) 0.9 K/mm3 (0.0-0.8) H 06/21/21 08:10 Eos # (Auto) 0.2 K/mm3 (0.0-0.4) 06/21/21 08:10 Baso # (Auto) 0.0 K/mm3 (0.0-0.1) 06/21/21 08:10 Add Manual Diff Complete 06/08/21 04:25 Total Counted 100 06/08/21 04:25 Seg Neutrophils % 69.7 % (40.0-70.0) 06/21/21 08:10 Seg Neuts % (Manual) 76.0 % (40.0-70.0) H 06/08/21 04:25 Band Neutrophils % 4.0 % 06/08/21 04:25 Lymphocytes % (Manual) 6.0 % (13.4-35.0) L 06/08/21 04:25 Monocytes % (Manual) 8.0 % (0.0-7.3) H 06/08/21 04:25 Eosinophils % (Manual) 1.0 % (0.0-4.3) 06/08/21 04:25 Metamyelocytes % 3.0 % 06/08/21 04:25 Myelocytes % 2.0 % 06/08/21 04:25 Nucleated RBC % Not Reportable 06/08/21 04:25 Seg Neutrophils # 7.0 K/mm3 (1.8-7.7) 06/21/21 08:10 Seg Neutrophils # Man 12.0 K/mm3 (1.8-7.7) H 06/08/21 04:25 Band Neutrophils # 0.6 K/mm3 06/08/21 04:25 Lymphocytes # (Manual) 0.9 K/mm3 (1.2-5.4) L 06/08/21 04:25 Abs React Lymphs (Man) 0.0 K/mm3 06/08/21 04:25 Monocytes # (Manual) 1.3 K/mm3 (0.0-0.8) H 06/08/21 04:25 Eosinophils # (Manual) 0.2 K/mm3 (0.0-0.4) 06/08/21 04:25 Basophils # (Manual) 0.0 K/mm3 (0.0-0.1) 06/08/21 04:25 Metamyelocytes # 0.5 K/mm3 06/08/21 04:25 Myelocytes # 0.3 K/mm3 06/08/21 04:25 Promyelocytes # 0.0 K/mm3 06/08/21 04:25 Blast Cells # 0.0 K/mm3 06/08/21 04:25 WBC Morphology Not Reportable 06/08/21 04:25 Hypersegmented Neuts Not Reportable 06/08/21 04:25 Hyposegmented Neuts Not Reportable 06/08/21 04:25 Hypogranular Neuts Not Reportable 06/08/21 04:25 Smudge Cells Not Reportable 06/08/21 04:25 Toxic Granulation Not Reportable 06/08/21 04:25 Toxic Vacuolation Not Reportable 06/08/21 04:25 Dohle Bodies Not Reportable 06/08/21 04:25 Pelger-Huet Anomaly Not Reportable 06/08/21 04:25 Peter Rods Not Reportable 06/08/21 04:25 Platelet Estimate Consistent w auto 06/08/21 04:25 Clumped Platelets Not Reportable 06/08/21 04:25 Plt Clumps, EDTA Not Reportable 06/08/21 04:25 Large Platelets Not Reportable 06/08/21 04:25 Giant Platelets Not Reportable 06/08/21 04:25 Platelet Satelliting Not Reportable 06/08/21 04:25 Plt Morphology Comment Not Reportable 06/08/21 04:25 RBC Morphology Not Reportable 06/08/21 04:25 Dimorphic RBCs Not Reportable 06/08/21 04:25 Polychromasia Not Reportable 06/08/21 04:25 Hypochromasia Not Reportable 06/08/21 04:25 Poikilocytosis Not Reportable 06/08/21 04:25 Anisocytosis Not Reportable 06/08/21 04:25 Microcytosis Not Reportable 06/08/21 04:25 Macrocytosis Not Reportable 06/08/21 04:25 Spherocytes Not Reportable 06/08/21 04:25 Pappenheimer Bodies Not Reportable 06/08/21 04:25 Sickle Cells Not Reportable 06/08/21 04:25 Target Cells Not Reportable 06/08/21 04:25 Tear Drop Cells Not Reportable 06/08/21 04:25 Ovalocytes Not Reportable 06/08/21 04:25 Helmet Cells Not Reportable 06/08/21 04:25 [place] Bodies Not Reportable 06/08/21 04:25 [place] Rings Not Reportable 06/08/21 04:25 [place] Cells Not Reportable 06/08/21 04:25 Bite Cells Not Reportable 06/08/21 04:25 Crenated Cell Not Reportable 06/08/21 04:25 Elliptocytes Not Reportable 06/08/21 04:25 Acanthocytes (Spur) Not Reportable 06/08/21 04:25 Rouleaux Not Reportable 06/08/21 04:25 Hemoglobin C Crystals Not Reportable 06/08/21 04:25 Schistocytes Not Reportable 06/08/21 04:25 Malaria parasites Not Reportable 06/08/21 04:25 Shravan Bodies Not Reportable 06/08/21 04:25 Hem Pathologist Commnt No 06/08/21 04:25 PT 14.5 Sec. (12.2-14.9) 06/16/21 18:51 INR 1.08 (0.87-1.13) 06/16/21 18:51 APTT 64.1 Sec. (24.2-36.6) H* 06/16/21 18:51 D-Dimer > 58999 ng/mlDDU (0-234) H 05/25/21 09:21 Heparin Anti-Xa Level 1.53 U.I./ml (0.3-0.7) H 06/17/21 04:19 ABG pH 7.471 (7.320-7.450) H 06/15/21 10:19 POC ABG pCO2 40.4 mmHg (32.0-48.0) 06/15/21 10:19 ABG pCO2 30.3 mm Hg 05/29/21 05:28 POC ABG pO2 90.1 mmHg (83-108) 06/15/21 10:19 ABG pO2 96.2 mm Hg (80.0-90.0) H 05/29/21 05:28 POC ABG HCO3 28.8 06/15/21 10:19 ABG HCO3 24.0 mmol/L (20.0-26.0) 05/29/21 05:28 ABG O2 Saturation 97.4 (0-100) 06/15/21 10:19 ABG O2 Content 10.3 (0.0-44) 05/29/21 05:28 POC ABG Base Excess 4.8 06/15/21 10:19 ABG Base Excess 1.2 mmol/L (-2.0-3.0) 05/29/21 05:28 ABG Hemoglobin 8.6 (12.0-17.5) L 06/13/21 11:07 ABG Oxyhemoglobin 96.0 (94-98) 06/15/21 10:19 ABG Carboxyhemoglobin 1.6 % (0.0-5.0) 05/29/21 05:28 ABG Methemoglobin 0.3 (0.0-1.5) 06/13/21 11:07 ABG Sodium 144.0 mmol/L (136.0-145.0) 06/13/21 11:07 ABG Potassium 4.7 mmol/L (3.40-4.50) H 06/13/21 11:07 ABG Chloride 107.0 mmol/L (98-107) 06/13/21 11:07 ABG Glucose 277 mg/dL (65-95) H 06/13/21 11:07 Oxyhemoglobin 96.0 % (95.0-99.0) 05/29/21 05:28 Carboxyhemoglobin 1.5 (0.5-1.5) 06/15/21 10:19 FiO2 30 % 05/29/21 05:28 FiO2 % 40 06/15/21 10:19 Sodium 143 mmol/L (137-145) 06/22/21 04:36 Potassium 4.7 mmol/L (3.6-5.0) 06/22/21 04:36 Chloride 104.6 mmol/L (98-107) 06/22/21 04:36 Carbon Dioxide 24 mmol/L (22-30) 06/22/21 04:36 Anion Gap 19 mmol/L 06/22/21 04:36 BUN 36 mg/dL (7-17) H 06/22/21 04:36 Creatinine 1.0 mg/dL (0.6-1.2) 06/22/21 04:36 Estimated GFR > 60 ml/min 06/22/21 04:36 BUN/Creatinine Ratio 36 % 06/22/21 04:36 Glucose 167 mg/dL (65-100) H 06/22/21 04:36 POC Glucose 160 mg/dL (70-105) H 06/22/21 05:22 Lactic Acid 2.30 mmol/L (0.7-2.0) H* 05/26/21 05:49 Calcium 8.5 mg/dL (8.4-10.2) 06/22/21 04:36 Phosphorus 5.40 mg/dL (2.5-4.5) H 06/16/21 04:31 Magnesium 2.40 mg/dL (1.7-2.3) H 06/19/21 06:20 Ferritin 321.6 ng/mL (10.0-200.0) H 05/25/21 09:21 Total Bilirubin 0.20 mg/dL (0.1-1.2) 06/21/21 04:07 Direct Bilirubin < 0.2 mg/dL (0-0.2) 05/25/21 09:21 Indirect Bilirubin 0.2 mg/dL 05/25/21 09:21 AST 79 units/L (5-40) H 06/21/21 04:07 ALT 79 units/L (7-56) H 06/21/21 04:07 Alkaline Phosphatase 159 units/L (35-129) H 06/21/21 04:07 Lactate Dehydrogenase 445 units/L (91-180) H 05/25/21 09:21 Troponin T 0.226 ng/mL (0.00-0.029) H* D 05/25/21 15:19 C-Reactive Protein 28.90 mg/dL (0.00-1.30) H 06/07/21 14:52 NT-Pro-B Natriuret Pep 173.2 pg/mL (0-900) 05/25/21 09:21 Total Protein 6.5 g/dL (6.3-8.2) 06/21/21 04:07 Albumin 2.6 g/dL (3.9-5) L 06/21/21 04:07 Albumin/Globulin Ratio 0.7 % 06/21/21 04:07 Triglycerides 124 mg/dL (2-149) 05/30/21 11:19 Cholesterol 198 mg/dL (50-199) 05/25/21 15:19 LDL Cholesterol Direct 80 mg/dL (50-130) 05/25/21 15:19 HDL Cholesterol 64 mg/dL (40-59) H 05/25/21 15:19 Cholesterol/HDL Ratio 3.09 % 05/25/21 15:19 Procalcitonin 0.36 ng/mL (<0.15) 06/07/21 14:52 Arterial Blood Glucose 277 mg/dL (65-95) H 06/13/21 11:07 Arterial Blood Ionized Calcium 4.6 mg/dL (4.6-5.3) 06/02/21 04:13 Urine Color Yellow (Yellow) 06/15/21 Unknown Urine Turbidity Slightly-cloudy (Clear) 06/15/21 Unknown Urine pH 6.0 (5.0-7.0) 06/15/21 Unknown Ur Specific [place] 1.013 (1.003-1.030) 06/15/21 Unknown Urine Protein <15 mg/dl mg/dL (Negative) 06/15/21 Unknown Urine Glucose (UA) Neg mg/dL (Negative) 06/15/21 Unknown Urine Ketones Neg mg/dL (Negative) 06/15/21 Unknown Urine Blood Mod (Negative) 06/15/21 Unknown Urine Nitrite Neg (Negative) 06/15/21 Unknown Ur Reducing Substances Not Reportable 06/15/21 Unknown Urine Bilirubin Neg (Negative) 06/15/21 Unknown Urine Ictotest Not Reportable 06/15/21 Unknown Urine Urobilinogen < 2.0 mg/dL (<2.0) 06/15/21 Unknown Ur Leukocyte Esterase Mod (Negative) 06/15/21 Unknown Urine WBC (Auto) 3.0 /HPF (0.0-6.0) 06/15/21 Unknown Urine RBC (Auto) 3.0 /HPF (0.0-6.0) 06/15/21 Unknown U Epithel Cells (Auto) 2.0 /HPF (0-13.0) 06/15/21 Unknown Urine Bacteria (Auto) 1+ /HPF (Negative) 06/15/21 Unknown Urine Mucus Few /HPF 06/15/21 Unknown Urine Yeast (Budding) Few /HPF 06/15/21 Unknown Urine Osmolality 430 Mosm/kg 06/15/21 Unknown Urine Creatinine 74.7 mg/dL (0.1-20.0) H 06/15/21 Unknown Urine Sodium 14 mmol/L 06/15/21 Unknown Coronavirus (PCR) Negative (Negative) 05/30/21 08:15 Blood Type O POSITIVE 06/15/21 08:00 Antibody Screen Negative 06/15/21 08:00 Tan/IV: Voiding Method External Female Catheter Active Medications - Current Medications Current Medications: Generic Name Dose Route Start Last Admin Trade Name Freq PRN Reason Stop Dose Admin Acetaminophen 650 mg 05/25/21 13:48 05/28/21 04:14 Acetaminophen 325 Mg Tab PO 650 mg Q6H PRN Administration Pain MILD(1-3)/Fever >100.5/SOTOMAYOR Acetylcysteine 200 mg 06/20/21 16:00 06/22/21 08:27 Acetylcysteine 20% 200 Mg/1 Ml *For Inhalation Use* INHALATION 06/25/21 15:59 Not Given Q8HRT [facility] Lipase/Protease/Amylase 1 each 05/26/21 10:00 Lipase 10,500/Protease 25,000/Amylase 43,750 (Units) Dr Munguia FEEDTUBE PRN PRN For Clogged Feeding Tube Apixaban 5 mg 06/16/21 22:00 06/21/21 21:25 Apixaban 5 Mg Tab PO 5 mg Q12HR ABDIRAHMAN Administration Protocol Bisacodyl 10 mg 06/08/21 10:00 Bisacodyl 10 Mg Rect Supp NM QDAY PRN Constipation Dextrose 50 ml 05/28/21 14:28 Dextrose 50% In Water (25gm) 50 Ml Syringe IV Q30MIN PRN Hypoglycemia Protocol Docusate Sodium 100 mg 06/08/21 10:00 06/21/21 21:27 Docusate Sodium 100 Mg/10 Ml Oral Liqd PO Not Given BID [facility] Doxazosin Mesylate 2 mg 06/01/21 12:00 06/21/21 21:40 Doxazosin 1 Mg Tab PO Not Given BID [facility] Famotidine 20 mg 05/29/21 10:00 06/21/21 21:25 Famotidine 20 Mg Tab FEEDTUBE 20 mg BID ABDIRAHMAN Administration Hydralazine HCl 10 mg 06/01/21 11:43 06/07/21 17:23 Hydralazine 20 Mg/1 Ml Inj IV 10 mg Q4HR PRN Administration SBP >160 Hydralazine HCl 50 mg 06/03/21 22:00 06/22/21 05:00 Hydralazine 25 Mg Tab PO 50 mg Q8HR [facility] Administration Hydrophilic Ointment 1 applic 05/25/21 19:04 Lip Therapy Vaseline TP Q2HR PRN Dry Lips Ceftriaxone Sodium 2 gm in 100 mls @ 200 mls/hr 06/20/21 10:00 06/21/21 10:51 Rocephin/Ns 2 Gm/100 Ml IV 06/23/21 10:29 200 mls/hr Q24H [facility] Administration Protocol Insulin Glargine 30 units 06/15/21 22:00 06/21/21 23:11 Insulin Glargine 100 Units/Ml SUB-Q Not Given QHS [facility] Insulin Human Lispro 0 unit 05/29/21 12:00 06/22/21 05:42 Insulin Lispro 100 Unit/Ml SUB-Q 3 unit Q6HR [facility] Administration Protocol Labetalol HCl 300 mg 06/03/21 13:40 06/21/21 21:41 Labetalol 100 Mg Tab PO Not Given BID [facility] Levetiracetam 250 mg 06/01/21 22:00 06/21/21 21:24 Levetiracetam 500 Mg/5 Ml Oral Liqd FEEDTUBE 250 mg Q12HR [facility] Administration Multi-Ingred Cream/Lotion/Oil/Oint 1 applic 05/25/21 19:04 Mineral Oil/Petrolatum, White Ophth Oint 3.5 Gm OU Q4HR PRN Dry Eye(s) Polyethylene Glycol 17 gm 06/05/21 11:00 06/21/21 14:38 Polyethylene Glycol 3350 17 Gm Powder PO Not Given QDAY ABDIRAHMAN Scopolamine 1 each 06/20/21 10:00 06/20/21 09:48 Scopolamine Transdermal Patch 72 Hr TD 1 each Q3D ABDIRAHMAN Administration Senna/Docusate Sodium 1 tab 05/25/21 22:00 06/21/21 21:27 Sennosides/Docusate Sodium 8.6/50 Mg Tab FEEDTUBE Not Given BID ABDIRAHMAN Simple Syrup 15 ml 05/26/21 10:00 Simple Syrup 15 Ml FEEDTUBE PRN PRN Hypoglycemia Simple Syrup 30 ml 05/26/21 10:00 Simple Syrup 15 Ml FEEDTUBE PRN PRN Hypoglycemia Sodium Bicarbonate 325 mg 05/26/21 10:00 Sodium Bicarbonate 325 Mg Tab FEEDTUBE PRN PRN For Clogged Feeding Tube Sodium Chloride 10 ml 05/25/21 22:00 06/21/21 21:20 Sodium Chloride 0.9% 10 Ml Flush Syringe IV 10 ml BID ABDIRAHMAN Administration Sodium Chloride 10 ml 05/25/21 13:48 06/04/21 03:57 Sodium Chloride 0.9% 10 Ml Flush Syringe IV 10 ml PRN PRN Administration LINE FLUSH Valsartan 160 mg 06/11/21 10:00 06/21/21 21:40 Valsartan 160mg Tab PO Not Given BID ABDIRAHMAN Nutrition/Malnutrition Assess - Dietary Evaluation Nutrition/Malnutrition Findings: Nutrition Notes Start: 05/26/21 09:00 Freq: Status: Active Protocol: Document 06/19/21 15:49 GB (Rec: 06/19/21 15:57 GB [id number]) Nutrition Notes Initial or Follow up Reassessment Current Diagnosis COPD,Diabetes,Sepsis, Hypertension,Respiratory Failure Other Pertinent Diagnosis cardiac arrest, seizure disorder, (06/12: Trach/PEG) Current Diet NPO, Tube feeding glucerna 1.2 @50 Labs/Tests 06/19: Na 148, BUN 26, glucose 109, Mg 2.4 Pertinent Medications reviewed Height 5 ft 4 in Weight 63 kg [place] Body Weight (kg) 54.54 BMI 23.8 Weight change and time frame -6.6% since admission No new weights after 05/30 Weight Status Appropriate Subjective/Other Information 06/12: Trach/PEG 06/12: TF formula changed to glucerna 1.2 r/t altered labs and now with trach/peg Last BM 06/17 06/19: waiting for placement SNF vs Home w/home health depending on T-piece tolerance Percent of energy/protein needs met: TF goal rate meets 75% or greater of estimated energy needs Burn Absent Trauma Absent GI Symptoms None Difficulty In Swallowing Food Allergy No Current % PO Other Minimum of two criteria No #1 Nutrition Diagnosis Inadequate oral intake Comments: 06/02: On vent. TF continues. 06/07: Ventilation continues, TF continues. 06/13: Trach/PEG on 06/12, change formula to glucerna 1.2 06/19: T/P continues, TF glucerna 1.2 @50ml/hr Etiology ARF As Evidenced by Signs and Symptoms pt on vent and unable to consume PO Diagnosis Progress(for reassessment Continues documentation) Is patient on ventilator? Yes Is Patient Ambulatory and/or Out of Bed No REE-([place]-confined to bed) 1385.676 Kcal/Kg value to use for calculation 23 Approximate Energy Requirements Using 1449 kcal/Kg Calculation Used for Recommendations Kcal/kg Additional Notes Protein: (1-1.5g/kg @63kg) 63- 95g Fluid: 1 ml/kcal or per MD Nutrition Intervention Change Diet Order: Continue NPO Nutrition Support: Glucerna 1.2 at 50 ml/hr Flush 75 ml q4h 06/07: continues 06/13: Trach/PEG on 06/12, change formula to glucerna 1.2 06/19: Glucerna 1.2 at 50ml/hr continues Kcal 1,440 Protein (gm) 72 Goal #1 Meet 75% or greater of protein and energy needs via TF 06/13: TF at goal meets 100% estimated energy needs: met, continues 06/19: met continues Goal #2 Change TF formula. Complete current vital 1.2 bottle, change to glucerna 1.2 r/t DM and related lab results 06/19: met, resolved Follow-Up By: 06/26/21 Additional Comments f/u: TF tolerance, new weights available
[2021-06-21] MEDS: POLYETHYLENE GLYCOL 3350 17 GM POWDER PO SCH (14:38)
--- NOTE | 2021-06-21 17:59 | XRay Report ---
CHEST 1 VIEW 06/21/2021 4:17 PM INDICATION / CLINICAL INFORMATION: Pneumonia. COMPARISON: 06/15/21 FINDINGS: SUPPORT DEVICES: Tracheostomy tube is unchanged. HEART / MEDIASTINUM: No significant abnormality. LUNGS / PLEURA: Minimal patchy bilateral pulmonary opacities are stable. No pneumothorax. ADDITIONAL FINDINGS: No significant additional findings. IMPRESSION: 1. No significant change. Signer Name: Kyleigh Melo MD Signed: 06/21/2021 5:55 PM Workstation Name: [email or web address] [id number]
--- NOTE | 2021-06-21 18:04 | XRay Report ---
ABDOMEN 1 VIEW 06/21/2021 4:17 PM INDICATION / CLINICAL INFORMATION: Vomiting. COMPARISON: 06/11/21. FINDINGS: TUBES / LINES: A nasogastric tube has been removed. There is a new gastrostomy tube overlying the lef t upper quadrant. BOWEL GAS PATTERN: There is no evidence of bowel obstruction or mass effect. FREE AIR / EXTRALUMINAL GAS: None. ADDITIONAL FINDINGS: No significant additional findings. IMPRESSION: No acute abnormality Signer Name: Keith Kumar MD Signed: 06/21/2021 6:00 PM Workstation Name: [email or web address]
[2021-06-21] MEDS ORDERED: ALBUTEROL 2.5 MG/3 ML NEBU IH ONE (22:07)
[2021-06-21] MEDS: INSULIN GLARGINE 100 UNITS/ML SUB-Q SCH (23:11)
[2021-06-22] MEDS: INSULIN LISPRO 100 UNIT/ML SUB-Q SCH ×4 (00:01→14:23)
[2021-06-22] MEDS: FREE WATER PO SCH ×4 (01:58→18:04)
[2021-06-22] MEDS: ACETYLCYSTEINE 20% 200 MG/1 ML *FOR INHALATION USE INHALATION SCH ×3 (04:06→18:04)
[2021-06-22] MEDS: hydrALAZINE 25 MG TAB PO SCH ×3 (05:00→21:22)
[2021-06-22 05:15] LABS: Hematocrit 23.7 % (30.3-42.9); Mean Corpuscular HGB Conc 34 % (30-34); Mean Corpuscular Volume 100 fl (79-97); Platelet Count 348 K/mm3 (140-440); Red Blood Count 2.38 M/mm3 (3.65-5.03); Red Cell Distribution Width 14.7 % (13.2-15.2)
[2021-06-22 05:21] LABS: BUN/Creatinine Ratio 36; Blood Urea Nitrogen 36 mg/dL (7-17); Calcium 8.5 mg/dL (8.4-10.2); Hemolysis Index 3
[2021-06-22] MEDS: DOCUSATE SODIUM 100 MG/10 ML ORAL LIQD PO SCH ×2 (09:48→21:26)
[2021-06-22] MEDS: levETIRAcetam 500 MG/5 ML ORAL LIQD FEEDTUBE SCH (09:48)
[2021-06-22] MEDS: APIXABAN 5 MG TAB PO SCH ×2 (09:49→21:23)
[2021-06-22] MEDS: FAMOTIDINE 20 MG TAB FEEDTUBE SCH ×2 (09:49→21:23)
[2021-06-22] MEDS: DOXAZOSIN 1 MG TAB PO SCH ×2 (09:49→21:25)
[2021-06-22] MEDS: SENNOSIDES/DOCUSATE SODIUM 8.6/50 MG TAB FEEDTUBE SCH ×2 (09:50→21:26)
[2021-06-22] MEDS: POLYETHYLENE GLYCOL 3350 17 GM POWDER PO SCH (09:50)
[2021-06-22] MEDS: VALSARTAN 160MG TAB PO SCH ×2 (09:50→21:25)
--- NOTE | 2021-06-22 13:09 | Progress Note ---
Assessment and Plan Acute hypoxemic respiratory failure on MVS Cardiopulmonary arrest wtih ROSC Seizure disorder E. Coli Pneumonia Sepsis Toxic metabolic encephalopathy, possible anoxia Atrial fibrillation with RVR Metabolic acidosis Bilateral lower lobe infiltrates - continue t-piece trials as tolerated - continue anticoagulation with Eliquis - continue care as below otherwise; - LTAC evaluation is appropriate - continue scopolamine patch for secretions - azotemia per nephrology team (non-oliguric) - daily SAT and SBT assessment as tolerated - continue to wean supplemental oxygen for target O2 sat's > 90% acutely - VAP bundle addressed - continue lung protective strategies - continue bronchodilators with pulmonary hygiene per RT - wean per pulmonary driven protocols otherwise - continue accuchecks with glycemic control per SSI (While critically ill target blood glucose of 140-180 mg/dL; avoid hypoglycemia) - sedation prn for target RASS 0 to -1 - avoid nephrotoxins, renally dose all medications - continue scopolamine for secretion control - continue Keppra as AED - continue to avoid benzodiazepine's, reduce the possibility of delirium - AB's per ID rec's - prn analgesia per CPOT score - Maintenance of sleep-wake cycle, avoid delirium - continue enteral nutritional support at goal rate as tolerated - G.I. & VTE prophylaxis - PT/OT/ROM exercises - continue mobility protocols for pressure ulcer prophylaxis - Monitor hemodynamics closely - continue other care per attending / other consultants - discharge planning ongoing concurrently COVID SPECIFIC INTERVENTIONS - COVID-19 PCR negative .... Re-evaluate in am & prn CONDITION: CRITICAL PROGNOSIS: GUARDED CODE STATUS: FULL CODE The high probability of a clinically significant, sudden or life-threatening deterioration of the [respiratory, cardiovascular, renal & neurologic] system(s) required my full and direct attention, intervention and personal management. The aggregate critical care time was [34] minutes without overlap. Time includes spent on; [x] Data Review and interpretation [x] Patient assessment and monitoring of vital signs [x] Documentation [x] Medication orders and management Subjective Date of service: 06/22/21 Principal diagnosis: Ac hypoxemic resp failure; Cardiac arrest; Seizures; Sepsis; AMS; A-Fib RVR Interval history: Patient is seen today for: Acute hypoxemic respiratory failure; Cardiac arrest wtih ROSC; Seizure disorder; Sepsis; AMS; A-Fib with RVR Seen and examined at bedside; 24hour events reviewed; nursing and respiratory care staff consulted; no adverse overnight events reported to me; resting in bed; Objective Vital Signs - 12hr 06/22/21 06/22/21 06/22/21 01:31 02:00 02:31 Temperature Pulse Rate 80 79 88 Pulse Rate [ From Monitor] Respiratory 15 18 17 Rate Blood Pressure 156/69 161/71 161/71 O2 Sat by Pulse 100 100 100 Oximetry 06/22/21 06/22/21 06/22/21 03:00 03:15 03:31 Temperature Pulse Rate 89 81 76 Pulse Rate [ From Monitor] Respiratory 22 8 L 14 Rate Blood Pressure 171/76 156/69 171/76 O2 Sat by Pulse 100 100 100 Oximetry 06/22/21 06/22/21 06/22/21 04:00 04:31 05:00 Temperature 99.3 F Pulse Rate 86 88 80 Pulse Rate [ 87 From Monitor] Respiratory 24 19 Rate Blood Pressure 154/69 154/69 154/69 O2 Sat by Pulse 100 97 Oximetry 06/22/21 06/22/21 06/22/21 05:01 05:31 06:00 Temperature Pulse Rate 80 89 90 Pulse Rate [ From Monitor] Respiratory 15 26 H 19 Rate Blood Pressure 120/47 120/47 160/70 O2 Sat by Pulse 98 100 100 Oximetry 06/22/21 06/22/21 06/22/21 06:31 07:00 07:31 Temperature Pulse Rate 95 H 83 91 H Pulse Rate [ From Monitor] Respiratory 27 H 16 24 Rate Blood Pressure 160/70 123/50 123/50 O2 Sat by Pulse 100 100 100 Oximetry 06/22/21 06/22/21 06/22/21 07:54 08:00 08:10 Temperature 100.0 F H Pulse Rate 87 89 94 H Pulse Rate [ From Monitor] Respiratory 18 18 Rate Blood Pressure 151/66 151/66 151/66 O2 Sat by Pulse 100 100 100 Oximetry 06/22/21 06/22/21 06/22/21 08:31 09:00 09:31 Temperature Pulse Rate 94 H 86 88 Pulse Rate [ From Monitor] Respiratory 17 28 H 22 Rate Blood Pressure 151/66 140/59 151/66 O2 Sat by Pulse 100 99 100 Oximetry 06/22/21 06/22/21 06/22/21 09:49 09:50 10:00 Temperature Pulse Rate 88 88 88 Pulse Rate [ From Monitor] Respiratory 29 H Rate Blood Pressure 140/59 140/59 147/65 O2 Sat by Pulse 100 Oximetry 06/22/21 06/22/21 06/22/21 10:31 11:00 11:24 Temperature Pulse Rate 86 79 80 Pulse Rate [ From Monitor] Respiratory 23 23 19 Rate Blood Pressure 147/65 130/60 130/62 O2 Sat by Pulse 100 100 100 Oximetry 06/22/21 06/22/21 11:31 12:00 Temperature Pulse Rate 78 82 Pulse Rate [ From Monitor] Respiratory 24 23 Rate Blood Pressure 147/65 124/58 O2 Sat by Pulse 100 95 Oximetry Constitutional: appears uncomfortable, other (elderly female with mildly increased respiratory effort at rest on MVS) Eyes: non-icteric ENT: oropharynx moist, other (+ midline tracheostomy with mild secretions) Neck: supple, no lymphadenopathy Effort: mildly labored Ascultation: Bilateral: diminished breath sounds, rhonchi (scant) Percussion: Bilateral: not dull Cardiovascular: regular rate and rhythm, other (S1,S2) Gastrointestinal: normoactive bowel sounds, soft, non-tender, non-distended (protuberant), other (+ PEG tube) Integumentary: normal Extremities: no cyanosis, pulses normal, no ischemia or petechiae, other (Right femoral CVL) Neurologic: pupils equal and round, unable to assess, other (encephalopathic) Psychiatric: other (unable to assess) CBC and BMP: 06/24/21 04:40 06/24/21 04:40 ABG, PT/INR, D-dimer: ABG ABG pH 7.471 (7.320-7.450) H 06/15/21 10:19 POC ABG pCO2 40.4 mmHg (32.0-48.0) 06/15/21 10:19 ABG pCO2 30.3 mm Hg 05/29/21 05:28 POC ABG pO2 90.1 mmHg (83-108) 06/15/21 10:19 ABG pO2 96.2 mm Hg (80.0-90.0) H 05/29/21 05:28 POC ABG HCO3 28.8 06/15/21 10:19 ABG O2 Saturation 97.4 (0-100) 06/15/21 10:19 PT/INR, D-dimer PT 14.5 Sec. (12.2-14.9) 06/16/21 18:51 INR 1.08 (0.87-1.13) 06/16/21 18:51 D-Dimer > 06825 ng/mlDDU (0-234) H 05/25/21 09:21 Abnormal lab findings: Abnormal Labs 05/25/21 05/25/21 05/25/21 09:07 09:21 09:21 WBC 17.1 H RBC Hgb Hct MCV 106 H MCH 33 H MCHC RDW 15.6 H Esmeralda % (Auto) Esmeralda # (Auto) Seg Neutrophils % Seg Neuts % (Manual) Lymphocytes % (Manual) Monocytes % (Manual) Seg Neutrophils # Seg Neutrophils # Man 10.1 H Lymphocytes # (Manual) 5.6 H Monocytes # (Manual) PT 15.0 H APTT 44.3 H D-Dimer > 56628 H Heparin Anti-Xa Level ABG pH 7.116 L POC ABG pCO2 POC ABG pO2 ABG pO2 ABG Hemoglobin ABG Oxyhemoglobin 93.7 L ABG Sodium ABG Potassium ABG Chloride ABG Glucose 395 H Carboxyhemoglobin Sodium Potassium Chloride Carbon Dioxide BUN Creatinine Glucose POC Glucose Lactic Acid Calcium Phosphorus Magnesium Ferritin AST ALT Alkaline Phosphatase Lactate Dehydrogenase Troponin T C-Reactive Protein Total Protein Albumin HDL Cholesterol Arterial Blood Glucose 395 H Arterial Blood Ionized Calcium 4.4 L Urine WBC (Auto) Urine Creatinine 05/25/21 05/25/21 05/25/21 09:21 09:21 09:21 WBC RBC Hgb Hct MCV MCH MCHC RDW Esmeralda % (Auto) Esmeralda # (Auto) Seg Neutrophils % Seg Neuts % (Manual) Lymphocytes % (Manual) Monocytes % (Manual) Seg Neutrophils # Seg Neutrophils # Man Lymphocytes # (Manual) Monocytes # (Manual) PT APTT D-Dimer Heparin Anti-Xa Level ABG pH POC ABG pCO2 POC ABG pO2 ABG pO2 ABG Hemoglobin ABG Oxyhemoglobin ABG Sodium ABG Potassium ABG Chloride ABG Glucose Carboxyhemoglobin Sodium Potassium Chloride Carbon Dioxide 10 L BUN Creatinine Glucose 423 H 424 H POC Glucose Lactic Acid Calcium 8.2 L Phosphorus Magnesium Ferritin 321.6 H AST 162 H ALT 119 H Alkaline Phosphatase Lactate Dehydrogenase 445 H Troponin T C-Reactive Protein Total Protein 5.6 L Albumin 3.2 L HDL Cholesterol Arterial Blood Glucose Arterial Blood Ionized Calcium Urine WBC (Auto) Urine Creatinine 09/05/25/21 05/25/21 09:35 10:42 11:12 WBC RBC Hgb Hct MCV MCH MCHC RDW Esmeralda % (Auto) Esmeralda # (Auto) Seg Neutrophils % Seg Neuts % (Manual) Lymphocytes % (Manual) Monocytes % (Manual) Seg Neutrophils # Seg Neutrophils # Man Lymphocytes # (Manual) Monocytes # (Manual) PT APTT D-Dimer Heparin Anti-Xa Level ABG pH POC ABG pCO2 POC ABG pO2 ABG pO2 ABG Hemoglobin ABG Oxyhemoglobin ABG Sodium ABG Potassium ABG Chloride ABG Glucose Carboxyhemoglobin Sodium Potassium Chloride Carbon Dioxide BUN Creatinine Glucose POC Glucose Lactic Acid 16.70 H* 7.70 H* Calcium Phosphorus Magnesium Ferritin AST ALT Alkaline Phosphatase Lactate Dehydrogenase Troponin T C-Reactive Protein Total Protein Albumin HDL Cholesterol Arterial Blood Glucose Arterial Blood Ionized Calcium Urine WBC (Auto) 11.0 H Urine Creatinine 05/25/21 05/25/21 05/25/21 14:07 15:19 19:04 WBC RBC Hgb Hct MCV MCH MCHC RDW Esmeralda % (Auto) Esmeralda # (Auto) Seg Neutrophils % Seg Neuts % (Manual) Lymphocytes % (Manual) Monocytes % (Manual) Seg Neutrophils # Seg Neutrophils # Man Lymphocytes # (Manual) Monocytes # (Manual) PT APTT D-Dimer Heparin Anti-Xa Level ABG pH POC ABG pCO2 POC ABG pO2 172.2 H ABG pO2 ABG Hemoglobin ABG Oxyhemoglobin 98.7 H ABG Sodium 135.7 L ABG Potassium ABG Chloride ABG Glucose 255 H Carboxyhemoglobin 0.3 L Sodium Potassium Chloride Carbon Dioxide BUN Creatinine Glucose POC Glucose Lactic Acid 3.90 H* Calcium Phosphorus Magnesium Ferritin AST ALT Alkaline Phosphatase Lactate Dehydrogenase Troponin T 0.226 H* D C-Reactive Protein Total Protein Albumin HDL Cholesterol 64 H Arterial Blood Glucose 255 H Arterial Blood Ionized Calcium 3.8 L Urine WBC (Auto) Urine Creatinine 05/25/21 05/25/21 05/26/21 21:16 21:16 04:00 WBC RBC Hgb Hct MCV MCH MCHC RDW Esmeralda % (Auto) Esmeralda # (Auto) Seg Neutrophils % Seg Neuts % (Manual) Lymphocytes % (Manual) Monocytes % (Manual) Seg Neutrophils # Seg Neutrophils # Man Lymphocytes # (Manual) Monocytes # (Manual) PT APTT D-Dimer Heparin Anti-Xa Level 1.19 H ABG pH 7.547 H POC ABG pCO2 POC ABG pO2 ABG pO2 ABG Hemoglobin 11.9 L ABG Oxyhemoglobin ABG Sodium 133.2 L ABG Potassium 3.1 L ABG Chloride ABG Glucose 243 H Carboxyhemoglobin 0.3 L Sodium Potassium Chloride Carbon Dioxide BUN Creatinine Glucose POC Glucose Lactic Acid 2.50 H* Calcium Phosphorus Magnesium Ferritin AST ALT Alkaline Phosphatase Lactate Dehydrogenase Troponin T C-Reactive Protein Total Protein Albumin HDL Cholesterol Arterial Blood Glucose 243 H Arterial Blood Ionized Calcium Urine WBC (Auto) Urine Creatinine 05/26/21 05/26/21 05/26/21 05:49 05:49 17:33 WBC RBC Hgb Hct MCV MCH MCHC RDW Esmeralda % (Auto) Esmeralda # (Auto) Seg Neutrophils % Seg Neuts % (Manual) Lymphocytes % (Manual) Monocytes % (Manual) Seg Neutrophils # Seg Neutrophils # Man Lymphocytes # (Manual) Monocytes # (Manual) PT APTT D-Dimer Heparin Anti-Xa Level ABG pH POC ABG pCO2 POC ABG pO2 ABG pO2 ABG Hemoglobin ABG Oxyhemoglobin ABG Sodium ABG Potassium ABG Chloride ABG Glucose Carboxyhemoglobin Sodium Potassium Chloride Carbon Dioxide BUN Creatinine Glucose 226 H POC Glucose 156 H Lactic Acid 2.30 H* Calcium 7.2 L Phosphorus Magnesium Ferritin AST 111 H ALT 97 H Alkaline Phosphatase Lactate Dehydrogenase Troponin T C-Reactive Protein Total Protein 5.4 L Albumin 3.3 L HDL Cholesterol Arterial Blood Glucose Arterial Blood Ionized Calcium Urine WBC (Auto) Urine Creatinine 05/27/21 05/27/21 05/27/21 02:11 02:11 02:11 WBC 14.3 H RBC 3.27 L Hgb Hct MCV 99 H MCH 33 H MCHC RDW 15.3 H Esmeralda % (Auto) Esmeralda # (Auto) 1.0 H Seg Neutrophils % Seg Neuts % (Manual) Lymphocytes % (Manual) Monocytes % (Manual) Seg Neutrophils # 10.0 H Seg Neutrophils # Man Lymphocytes # (Manual) Monocytes # (Manual) PT APTT D-Dimer Heparin Anti-Xa Level 0.80 H ABG pH POC ABG pCO2 POC ABG pO2 ABG pO2 ABG Hemoglobin ABG Oxyhemoglobin ABG Sodium ABG Potassium ABG Chloride ABG Glucose Carboxyhemoglobin Sodium Potassium 2.9 L* D Chloride Carbon Dioxide 31 H BUN 6 L Creatinine Glucose 215 H POC Glucose Lactic Acid Calcium 8.1 L Phosphorus Magnesium Ferritin AST ALT Alkaline Phosphatase Lactate Dehydrogenase Troponin T C-Reactive Protein Total Protein Albumin HDL Cholesterol Arterial Blood Glucose Arterial Blood Ionized Calcium Urine WBC (Auto) Urine Creatinine 05/27/21 05/27/21 05/27/21 11:24 12:49 18:06 WBC RBC Hgb Hct MCV MCH MCHC RDW Esmeralda % (Auto) Esmeralda # (Auto) Seg Neutrophils % Seg Neuts % (Manual) Lymphocytes % (Manual) Monocytes % (Manual) Seg Neutrophils # Seg Neutrophils # Man Lymphocytes # (Manual) Monocytes # (Manual) PT APTT D-Dimer Heparin Anti-Xa Level ABG pH POC ABG pCO2 POC ABG pO2 ABG pO2 ABG Hemoglobin ABG Oxyhemoglobin ABG Sodium ABG Potassium ABG Chloride ABG Glucose Carboxyhemoglobin Sodium Potassium Chloride Carbon Dioxide BUN Creatinine Glucose POC Glucose 151 H 165 H 137 H Lactic Acid Calcium Phosphorus Magnesium Ferritin AST ALT Alkaline Phosphatase Lactate Dehydrogenase Troponin T C-Reactive Protein Total Protein Albumin HDL Cholesterol Arterial Blood Glucose Arterial Blood Ionized Calcium Urine WBC (Auto) Urine Creatinine 05/28/21 05/28/21 05/28/21 04:00 04:00 06:02 WBC 13.5 H RBC 3.05 L Hgb Hct MCV 100 H MCH 34 H MCHC RDW Esmeralda % (Auto) Esmeralda # (Auto) 0.9 H Seg Neutrophils % 78.2 H Seg Neuts % (Manual) Lymphocytes % (Manual) Monocytes % (Manual) Seg Neutrophils # 10.6 H Seg Neutrophils # Man Lymphocytes # (Manual) Monocytes # (Manual) PT APTT D-Dimer Heparin Anti-Xa Level ABG pH 7.507 H POC ABG pCO2 POC ABG pO2 ABG pO2 ABG Hemoglobin 10.6 L ABG Oxyhemoglobin ABG Sodium 129.4 L ABG Potassium ABG Chloride ABG Glucose 243 H Carboxyhemoglobin 0.2 L Sodium 136 L D Potassium Chloride Carbon Dioxide BUN Creatinine Glucose 215 H POC Glucose Lactic Acid Calcium Phosphorus Magnesium Ferritin AST ALT Alkaline Phosphatase Lactate Dehydrogenase Troponin T C-Reactive Protein Total Protein Albumin HDL Cholesterol Arterial Blood Glucose 243 H Arterial Blood Ionized Calcium 4.1 L Urine WBC (Auto) Urine Creatinine 05/28/21 05/28/21 05/29/21 11:27 23:02 04:30 WBC RBC Hgb 9.3 L Hct 26.7 L MCV MCH MCHC RDW Esmeralda % (Auto) Esmeralda # (Auto) Seg Neutrophils % Seg Neuts % (Manual) Lymphocytes % (Manual) Monocytes % (Manual) Seg Neutrophils # Seg Neutrophils # Man Lymphocytes # (Manual) Monocytes # (Manual) PT APTT D-Dimer Heparin Anti-Xa Level ABG pH POC ABG pCO2 POC ABG pO2 ABG pO2 ABG Hemoglobin ABG Oxyhemoglobin ABG Sodium ABG Potassium ABG Chloride ABG Glucose Carboxyhemoglobin Sodium Potassium Chloride Carbon Dioxide BUN Creatinine Glucose POC Glucose 220 H 212 H Lactic Acid Calcium Phosphorus Magnesium Ferritin AST ALT Alkaline Phosphatase Lactate Dehydrogenase Troponin T C-Reactive Protein Total Protein Albumin HDL Cholesterol Arterial Blood Glucose Arterial Blood Ionized Calcium Urine WBC (Auto) Urine Creatinine 05/29/21 05/29/21 05/29/21 05:02 05:28 12:55 WBC RBC Hgb Hct MCV MCH MCHC RDW Esmeralda % (Auto) Esmeralda # (Auto) Seg Neutrophils % Seg Neuts % (Manual) Lymphocytes % (Manual) Monocytes % (Manual) Seg Neutrophils # Seg Neutrophils # Man Lymphocytes # (Manual) Monocytes # (Manual) PT APTT D-Dimer Heparin Anti-Xa Level ABG pH 7.516 H POC ABG pCO2 POC ABG pO2 ABG pO2 96.2 H ABG Hemoglobin 7.5 L ABG Oxyhemoglobin ABG Sodium ABG Potassium ABG Chloride ABG Glucose Carboxyhemoglobin Sodium Potassium Chloride Carbon Dioxide BUN Creatinine Glucose POC Glucose 197 H 251 H Lactic Acid Calcium Phosphorus Magnesium Ferritin AST ALT Alkaline Phosphatase Lactate Dehydrogenase Troponin T C-Reactive Protein Total Protein Albumin HDL Cholesterol Arterial Blood Glucose Arterial Blood Ionized Calcium Urine WBC (Auto) Urine Creatinine 05/29/21 05/29/21 05/30/21 18:23 23:31 04:10 WBC RBC Hgb Hct MCV MCH MCHC RDW Esmeralda % (Auto) Esmeralda # (Auto) Seg Neutrophils % Seg Neuts % (Manual) Lymphocytes % (Manual) Monocytes % (Manual) Seg Neutrophils # Seg Neutrophils # Man Lymphocytes # (Manual) Monocytes # (Manual) PT APTT D-Dimer Heparin Anti-Xa Level ABG pH 7.532 H POC ABG pCO2 30.0 L POC ABG pO2 78.5 L ABG pO2 ABG Hemoglobin 11.3 L ABG Oxyhemoglobin ABG Sodium 126.7 L ABG Potassium ABG Chloride 94.0 L ABG Glucose 270 H Carboxyhemoglobin 0.4 L Sodium Potassium Chloride Carbon Dioxide BUN Creatinine Glucose POC Glucose 236 H 252 H Lactic Acid Calcium Phosphorus Magnesium Ferritin AST ALT Alkaline Phosphatase Lactate Dehydrogenase Troponin T C-Reactive Protein Total Protein Albumin HDL Cholesterol Arterial Blood Glucose 270 H Arterial Blood Ionized Calcium 4.4 L Urine WBC (Auto) Urine Creatinine 05/30/21 05/30/21 05/30/21 05:06 06:23 11:15 WBC RBC Hgb Hct MCV MCH MCHC RDW Esmeralda % (Auto) Esmeralda # (Auto) Seg Neutrophils % Seg Neuts % (Manual) Lymphocytes % (Manual) Monocytes % (Manual) Seg Neutrophils # Seg Neutrophils # Man Lymphocytes # (Manual) Monocytes # (Manual) PT APTT D-Dimer Heparin Anti-Xa Level ABG pH POC ABG pCO2 POC ABG pO2 ABG pO2 ABG Hemoglobin ABG Oxyhemoglobin ABG Sodium ABG Potassium ABG Chloride ABG Glucose Carboxyhemoglobin Sodium 126 L D Potassium Chloride 91.9 L Carbon Dioxide 20 L D BUN Creatinine 0.4 L Glucose 274 H POC Glucose 242 H 346 H Lactic Acid Calcium Phosphorus Magnesium Ferritin AST ALT Alkaline Phosphatase Lactate Dehydrogenase Troponin T C-Reactive Protein Total Protein Albumin HDL Cholesterol Arterial Blood Glucose Arterial Blood Ionized Calcium Urine WBC (Auto) Urine Creatinine 05/30/21 05/30/21 05/30/21 11:19 11:19 11:19 WBC 18.9 H RBC 3.36 L Hgb Hct MCV 102 H MCH 33 H MCHC RDW 15.5 H Esmeralda % (Auto) Esmeralda # (Auto) Seg Neutrophils % Seg Neuts % (Manual) Lymphocytes % (Manual) Monocytes % (Manual) Seg Neutrophils # Seg Neutrophils # Man Lymphocytes # (Manual) Monocytes # (Manual) PT APTT D-Dimer Heparin Anti-Xa Level < 0.10 L ABG pH POC ABG pCO2 POC ABG pO2 ABG pO2 ABG Hemoglobin ABG Oxyhemoglobin ABG Sodium ABG Potassium ABG Chloride ABG Glucose Carboxyhemoglobin Sodium 124 L Potassium Chloride Carbon Dioxide BUN Creatinine Glucose POC Glucose Lactic Acid Calcium Phosphorus Magnesium Ferritin AST ALT Alkaline Phosphatase Lactate Dehydrogenase Troponin T C-Reactive Protein Total Protein Albumin HDL Cholesterol Arterial Blood Glucose Arterial Blood Ionized Calcium Urine WBC (Auto) Urine Creatinine 05/30/21 05/30/21 05/31/21 17:02 23:27 03:37 WBC RBC Hgb Hct MCV MCH MCHC RDW Esmeralda % (Auto) Esmeralda # (Auto) Seg Neutrophils % Seg Neuts % (Manual) Lymphocytes % (Manual) Monocytes % (Manual) Seg Neutrophils # Seg Neutrophils # Man Lymphocytes # (Manual) Monocytes # (Manual) PT APTT D-Dimer Heparin Anti-Xa Level ABG pH POC ABG pCO2 POC ABG pO2 ABG pO2 ABG Hemoglobin 11.6 L ABG Oxyhemoglobin ABG Sodium 130.0 L ABG Potassium ABG Chloride 95.0 L ABG Glucose 292 H Carboxyhemoglobin Sodium Potassium Chloride Carbon Dioxide BUN Creatinine Glucose POC Glucose 270 H 237 H Lactic Acid Calcium Phosphorus Magnesium Ferritin AST ALT Alkaline Phosphatase Lactate Dehydrogenase Troponin T C-Reactive Protein Total Protein Albumin HDL Cholesterol Arterial Blood Glucose 292 H Arterial Blood Ionized Calcium Urine WBC (Auto) Urine Creatinine 05/31/21 05/31/21 05/31/21 04:00 04:00 05:20 WBC 20.9 H RBC 3.13 L Hgb Hct MCV 99 H MCH 34 H MCHC RDW Esmeralda % (Auto) Esmeralda # (Auto) Seg Neutrophils % Seg Neuts % (Manual) 81.0 H Lymphocytes % (Manual) 8.0 L Monocytes % (Manual) 9.0 H Seg Neutrophils # Seg Neutrophils # Man 16.9 H Lymphocytes # (Manual) Monocytes # (Manual) 1.9 H PT APTT D-Dimer Heparin Anti-Xa Level ABG pH POC ABG pCO2 POC ABG pO2 ABG pO2 ABG Hemoglobin ABG Oxyhemoglobin ABG Sodium ABG Potassium ABG Chloride ABG Glucose Carboxyhemoglobin Sodium 133 L D Potassium Chloride 95.4 L Carbon Dioxide 21 L BUN 30 H Creatinine 0.5 L Glucose 305 H POC Glucose 269 H Lactic Acid Calcium Phosphorus Magnesium Ferritin AST ALT Alkaline Phosphatase Lactate Dehydrogenase Troponin T C-Reactive Protein Total Protein Albumin HDL Cholesterol Arterial Blood Glucose Arterial Blood Ionized Calcium Urine WBC (Auto) Urine Creatinine 05/31/21 05/31/21 05/31/21 11:40 18:16 23:25 WBC RBC Hgb Hct MCV MCH MCHC RDW Esmeralda % (Auto) Esmeralda # (Auto) Seg Neutrophils % Seg Neuts % (Manual) Lymphocytes % (Manual) Monocytes % (Manual) Seg Neutrophils # Seg Neutrophils # Man Lymphocytes # (Manual) Monocytes # (Manual) PT APTT D-Dimer Heparin Anti-Xa Level ABG pH POC ABG pCO2 POC ABG pO2 ABG pO2 ABG Hemoglobin ABG Oxyhemoglobin ABG Sodium ABG Potassium ABG Chloride ABG Glucose Carboxyhemoglobin Sodium Potassium Chloride Carbon Dioxide BUN Creatinine Glucose POC Glucose 364 H 250 H 231 H Lactic Acid Calcium Phosphorus Magnesium Ferritin AST ALT Alkaline Phosphatase Lactate Dehydrogenase Troponin T C-Reactive Protein Total Protein Albumin HDL Cholesterol Arterial Blood Glucose Arterial Blood Ionized Calcium Urine WBC (Auto) Urine Creatinine 06/01/21 06/01/21 06/01/21 04:03 04:58 04:58 WBC 20.7 H RBC 3.20 L Hgb Hct MCV 99 H MCH 34 H MCHC RDW Esmeralda % (Auto) Esmeralda # (Auto) Seg Neutrophils % Seg Neuts % (Manual) 82.0 H Lymphocytes % (Manual) 9.0 L Monocytes % (Manual) Seg Neutrophils # Seg Neutrophils # Man 17.0 H Lymphocytes # (Manual) Monocytes # (Manual) 1.4 H PT APTT D-Dimer Heparin Anti-Xa Level 1.18 H ABG pH 7.520 H POC ABG pCO2 POC ABG pO2 66.0 L ABG pO2 ABG Hemoglobin ABG Oxyhemoglobin 92.5 L ABG Sodium 133.6 L ABG Potassium ABG Chloride ABG Glucose 250 H Carboxyhemoglobin Sodium Potassium Chloride Carbon Dioxide BUN Creatinine Glucose POC Glucose Lactic Acid Calcium Phosphorus Magnesium Ferritin AST ALT Alkaline Phosphatase Lactate Dehydrogenase Troponin T C-Reactive Protein Total Protein Albumin HDL Cholesterol Arterial Blood Glucose 250 H Arterial Blood Ionized Calcium 4.4 L Urine WBC (Auto) Urine Creatinine 06/01/21 06/01/21 06/01/21 04:58 05:29 11:39 WBC RBC Hgb Hct MCV MCH MCHC RDW Esmeralda % (Auto) Esmeralda # (Auto) Seg Neutrophils % Seg Neuts % (Manual) Lymphocytes % (Manual) Monocytes % (Manual) Seg Neutrophils # Seg Neutrophils # Man Lymphocytes # (Manual) Monocytes # (Manual) PT APTT D-Dimer Heparin Anti-Xa Level ABG pH POC ABG pCO2 POC ABG pO2 ABG pO2 ABG Hemoglobin ABG Oxyhemoglobin ABG Sodium ABG Potassium ABG Chloride ABG Glucose Carboxyhemoglobin Sodium 131 L Potassium Chloride 95.7 L Carbon Dioxide BUN 30 H Creatinine 0.5 L Glucose 241 H POC Glucose 215 H 299 H Lactic Acid Calcium Phosphorus Magnesium Ferritin AST ALT Alkaline Phosphatase Lactate Dehydrogenase Troponin T C-Reactive Protein Total Protein Albumin HDL Cholesterol Arterial Blood Glucose Arterial Blood Ionized Calcium Urine WBC (Auto) Urine Creatinine 06/01/21 06/02/21 06/02/21 18:14 00:12 02:25 WBC 17.4 H RBC 3.09 L Hgb Hct MCV 101 H MCH 34 H MCHC RDW 15.5 H Esmeralda % (Auto) Esmeralda # (Auto) Seg Neutrophils % Seg Neuts % (Manual) Lymphocytes % (Manual) Monocytes % (Manual) Seg Neutrophils # Seg Neutrophils # Man Lymphocytes # (Manual) Monocytes # (Manual) PT APTT D-Dimer Heparin Anti-Xa Level ABG pH POC ABG pCO2 POC ABG pO2 ABG pO2 ABG Hemoglobin ABG Oxyhemoglobin ABG Sodium ABG Potassium ABG Chloride ABG Glucose Carboxyhemoglobin Sodium Potassium Chloride Carbon Dioxide BUN Creatinine Glucose POC Glucose 215 H 175 H Lactic Acid Calcium Phosphorus Magnesium Ferritin AST ALT Alkaline Phosphatase Lactate Dehydrogenase Troponin T C-Reactive Protein Total Protein Albumin HDL Cholesterol Arterial Blood Glucose Arterial Blood Ionized Calcium Urine WBC (Auto) Urine Creatinine 06/02/21 06/02/21 06/02/21 02:25 04:13 04:58 WBC RBC Hgb Hct MCV MCH MCHC RDW Esmeralda % (Auto) Esmeralda # (Auto) Seg Neutrophils % Seg Neuts % (Manual) Lymphocytes % (Manual) Monocytes % (Manual) Seg Neutrophils # Seg Neutrophils # Man Lymphocytes # (Manual) Monocytes # (Manual) PT APTT D-Dimer Heparin Anti-Xa Level ABG pH 7.481 H POC ABG pCO2 POC ABG pO2 80.0 L ABG pO2 ABG Hemoglobin 11.1 L ABG Oxyhemoglobin ABG Sodium 131.9 L ABG Potassium ABG Chloride ABG Glucose 231 H Carboxyhemoglobin 0.2 L Sodium 134 L Potassium Chloride 95.8 L Carbon Dioxide BUN 31 H Creatinine 0.5 L Glucose 168 H POC Glucose 230 H Lactic Acid Calcium Phosphorus Magnesium Ferritin AST ALT Alkaline Phosphatase Lactate Dehydrogenase Troponin T C-Reactive Protein Total Protein Albumin HDL Cholesterol Arterial Blood Glucose 231 H Arterial Blood Ionized Calcium Urine WBC (Auto) Urine Creatinine 06/02/21 06/02/21 06/02/21 11:27 17:47 23:53 WBC RBC Hgb Hct MCV MCH MCHC RDW Esmer[place]da % (Auto) Esmer[place]da # (Auto) Seg Neutrophils % Seg Neuts % (Manual) Lymphocytes % (Manual) Monocytes % (Manual) Seg Neutrophils # Seg Neutrophils # Man Lymphocytes # (Manual) Monocytes # (Manual) PT APTT D-Dimer Heparin Anti-Xa Level 0.80 H ABG pH POC ABG pCO2 POC ABG pO2 ABG pO2 ABG Hemoglobin ABG Oxyhemoglobin ABG Sodium ABG Potassium ABG Chloride ABG Glucose Carboxyhemoglobin Sodium Potassium Chloride Carbon Dioxide BUN Creatinine Glucose POC Glucose 259 H 297 H Lactic Acid Calcium Phosphorus Magnesium Ferritin AST ALT Alkaline Phosphatase Lactate Dehydrogenase Troponin T C-Reactive Protein Total Protein Albumin HDL Cholesterol Arterial Blood Glucose Arterial Blood Ionized Calcium Urine WBC (Auto) Urine Creatinine 06/03/21 06/03/21 06/03/21 00:05 05:23 09:10 WBC RBC Hgb Hct MCV MCH MCHC RDW [place]mer[place]da % (Auto) [place]mer[place]da # (Auto) Seg Neutrophils % Seg Neuts % (Manual) Lymphocytes % (Manual) Monocytes % (Manual) Seg Neutrophils # Seg Neutrophils # Man Lymphocytes # (Manual) Monocytes # (Manual) PT APTT D-Dimer Heparin Anti-Xa Level 0.84 H ABG pH POC ABG pCO2 POC ABG pO2 ABG pO2 ABG Hemoglobin ABG Oxyhemoglobin ABG Sodium ABG Potassium ABG Chloride ABG Glucose Carboxyhemoglobin Sodium Potassium Chloride Carbon Dioxide BUN Creatinine Glucose POC Glucose 268 H 170 H Lactic Acid Calcium Phosphorus Magnesium Ferritin AST ALT Alkaline Phosphatase Lactate Dehydrogenase Troponin T C-Reactive Protein Total Protein Albumin HDL Cholesterol Arterial Blood Glucose Arterial Blood Ionized Calcium Urine WBC (Auto) Urine Creatinine 06/03/21 06/03/21 06/03/21 12:06 20:22 23:30 WBC RBC Hgb Hct MCV MCH MCHC RDW [place] % (Auto) [place]da # (Auto) Seg Neutrophils % Seg Neuts % (Manual) Lymphocytes % (Manual) Monocytes % (Manual) Seg Neutrophils # Seg Neutrophils # Man Lymphocytes # (Manual) Monocytes # (Manual) PT APTT D-Dimer Heparin Anti-Xa Level ABG pH POC ABG pCO2 POC ABG pO2 ABG pO2 ABG Hemoglobin ABG Oxyhemoglobin ABG Sodium ABG Potassium ABG Chloride ABG Glucose Carboxyhemoglobin Sodium Potassium Chloride Carbon Dioxide BUN Creatinine Glucose POC Glucose 275 H 260 H 215 H Lactic Acid Calcium Phosphorus Magnesium Ferritin AST ALT Alkaline Phosphatase Lactate Dehydrogenase Troponin T C-Reactive Protein Total Protein Albumin HDL Cholesterol Arterial Blood Glucose Arterial Blood Ionized Calcium Urine WBC (Auto) Urine Creatinine 06/04/21 06/04/21 06/04/21 05:03 05:57 05:57 WBC 17.8 H RBC 2.83 L Hgb 9.6 L Hct 28.4 L MCV 100 H MCH 34 H MCHC RDW 15.5 H [place]mer[place]da % (Auto) [place]mer[place]da # (Auto) Seg Neutrophils % Seg Neuts % (Manual) 83.0 H Lymphocytes % (Manual) 4.0 L Monocytes % (Manual) Seg Neutrophils # Seg Neutrophils # Man 14.8 H Lymphocytes # (Manual) 0.7 L Monocytes # (Manual) 1.1 H PT APTT D-Dimer Heparin Anti-Xa Level ABG pH POC ABG pCO2 POC ABG pO2 ABG pO2 ABG Hemoglobin ABG Oxyhemoglobin ABG Sodium ABG Potassium ABG Chloride ABG Glucose Carboxyhemoglobin Sodium 135 L Potassium Chloride 96.3 L Carbon Dioxide BUN 51 H Creatinine Glucose 275 H POC Glucose 257 H Lactic Acid Calcium Phosphorus Magnesium Ferritin AST ALT Alkaline Phosphatase Lactate Dehydrogenase Troponin T C-Reactive Protein Total Protein Albumin HDL Cholesterol Arterial Blood Glucose Arterial Blood Ionized Calcium Urine WBC (Auto) Urine Creatinine 06/04/21 06/04/21 06/04/21 09:48 11:08 17:33 WBC RBC Hgb Hct MCV MCH MCHC RDW [place] % (Auto) [place]da # (Auto) Seg Neutrophils % Seg Neuts % (Manual) Lymphocytes % (Manual) Monocytes % (Manual) Seg Neutrophils # Seg Neutrophils # Man Lymphocytes # (Manual) Monocytes # (Manual) PT APTT D-Dimer Heparin Anti-Xa Level ABG pH POC ABG pCO2 POC ABG pO2 ABG pO2 ABG Hemoglobin ABG Oxyhemoglobin ABG Sodium ABG Potassium ABG Chloride ABG Glucose Carboxyhemoglobin Sodium Potassium Chloride Carbon Dioxide BUN Creatinine Glucose POC Glucose 198 H 234 H 247 H Lactic Acid Calcium Phosphorus Magnesium Ferritin AST ALT Alkaline Phosphatase Lactate Dehydrogenase Troponin T C-Reactive Protein Total Protein Albumin HDL Cholesterol Arterial Blood Glucose Arterial Blood Ionized Calcium Urine WBC (Auto) Urine Creatinine 06/04/21 06/05/21 06/05/21 23:30 05:38 11:24 WBC RBC Hgb Hct MCV MCH MCHC RDW [place] % (Auto) [place]da # (Auto) Seg Neutrophils % Seg Neuts % (Manual) Lymphocytes % (Manual) Monocytes % (Manual) Seg Neutrophils # Seg Neutrophils # Man Lymphocytes # (Manual) Monocytes # (Manual) PT APTT D-Dimer Heparin Anti-Xa Level ABG pH POC ABG pCO2 POC ABG pO2 ABG pO2 ABG Hemoglobin ABG Oxyhemoglobin ABG Sodium ABG Potassium ABG Chloride ABG Glucose Carboxyhemoglobin Sodium Potassium Chloride Carbon Dioxide BUN Creatinine Glucose POC Glucose 192 H 192 H 287 H Lactic Acid Calcium Phosphorus Magnesium Ferritin AST ALT Alkaline Phosphatase Lactate Dehydrogenase Troponin T C-Reactive Protein Total Protein Albumin HDL Cholesterol Arterial Blood Glucose Arterial Blood Ionized Calcium Urine WBC (Auto) Urine Creatinine 06/05/21 06/05/21 06/05/21 12:20 12:20 12:20 WBC 16.2 H RBC 2.56 L Hgb 8.8 L Hct 25.2 L MCV 98 H MCH 35 H MCHC 35 H RDW 15.3 H [place]da % (Auto) [place]mer[place]da # (Auto) Seg Neutrophils % Seg Neuts % (Manual) Lymphocytes % (Manual) Monocytes % (Manual) Seg Neutrophils # Seg Neutrophils # Man Lymphocytes # (Manual) Monocytes # (Manual) PT APTT 72.2 H* D-Dimer Heparin Anti-Xa Level ABG pH POC ABG pCO2 POC ABG pO2 ABG pO2 ABG Hemoglobin ABG Oxyhemoglobin ABG Sodium ABG Potassium ABG Chloride ABG Glucose Carboxyhemoglobin Sodium 133 L Potassium Chloride 95.3 L Carbon Dioxide BUN 57 H Creatinine Glucose 313 H POC Glucose Lactic Acid Calcium Phosphorus Magnesium Ferritin AST 90 H ALT 79 H Alkaline Phosphatase 262 H Lactate Dehydrogenase Troponin T C-Reactive Protein Total Protein Albumin 2.7 L HDL Cholesterol Arterial Blood Glucose Arterial Blood Ionized Calcium Urine WBC (Auto) Urine Creatinine 06/05/21 06/05/21 06/05/21 17:50 22:57 23:36 WBC RBC Hgb Hct MCV MCH MCHC RDW [place] % (Auto) [place]mer[place]da # (Auto) Seg Neutrophils % Seg Neuts % (Manual) Lymphocytes % (Manual) Monocytes % (Manual) Seg Neutrophils # Seg Neutrophils # Man Lymphocytes # (Manual) Monocytes # (Manual) PT APTT D-Dimer Heparin Anti-Xa Level 0.28 L ABG pH POC ABG pCO2 POC ABG pO2 ABG pO2 ABG Hemoglobin ABG Oxyhemoglobin ABG Sodium ABG Potassium ABG Chloride ABG Glucose Carboxyhemoglobin Sodium Potassium Chloride Carbon Dioxide BUN Creatinine Glucose POC Glucose 275 H 223 H Lactic Acid Calcium Phosphorus Magnesium Ferritin AST ALT Alkaline Phosphatase Lactate Dehydrogenase Troponin T C-Reactive Protein Total Protein Albumin HDL Cholesterol Arterial Blood Glucose Arterial Blood Ionized Calcium Urine WBC (Auto) Urine Creatinine 06/06/21 06/06/21 06/06/21 04:57 04:57 05:02 WBC 15.7 H RBC 2.77 L Hgb 9.4 L Hct 27.2 L MCV 98 H MCH 34 H MCHC RDW 15.4 H [place]da % (Auto) [place]mer[place]da # (Auto) Seg Neutrophils % Seg Neuts % (Manual) Lymphocytes % (Manual) Monocytes % (Manual) Seg Neutrophils # Seg Neutrophils # Man Lymphocytes # (Manual) Monocytes # (Manual) PT APTT D-Dimer Heparin Anti-Xa Level ABG pH POC ABG pCO2 POC ABG pO2 ABG pO2 ABG Hemoglobin ABG Oxyhemoglobin ABG Sodium ABG Potassium ABG Chloride ABG Glucose Carboxyhemoglobin Sodium Potassium 5.7 H Chloride Carbon Dioxide BUN 57 H Creatinine Glucose 245 H POC Glucose 217 H Lactic Acid Calcium Phosphorus Magnesium Ferritin AST 99 H ALT 136 H Alkaline Phosphatase 312 H Lactate Dehydrogenase Troponin T C-Reactive Protein Total Protein 6.1 L Albumin 3.1 L HDL Cholesterol Arterial Blood Glucose Arterial Blood Ionized Calcium Urine WBC (Auto) Urine Creatinine 06/06/21 06/06/21 06/06/21 11:37 17:34 18:09 WBC RBC Hgb Hct MCV MCH MCHC RDW [place]da % (Auto) [place]da # (Auto) Seg Neutrophils % Seg Neuts % (Manual) Lymphocytes % (Manual) Monocytes % (Manual) Seg Neutrophils # Seg Neutrophils # Man Lymphocytes # (Manual) Monocytes # (Manual) PT APTT D-Dimer Heparin Anti-Xa Level ABG pH POC ABG pCO2 POC ABG pO2 ABG pO2 ABG Hemoglobin ABG Oxyhemoglobin ABG Sodium ABG Potassium ABG Chloride ABG Glucose Carboxyhemoglobin Sodium Potassium 5.2 H Chloride Carbon Dioxide BUN 48 H Creatinine Glucose 245 H POC Glucose 251 H 217 H Lactic Acid Calcium Phosphorus Magnesium Ferritin AST ALT Alkaline Phosphatase Lactate Dehydrogenase Troponin T C-Reactive Protein Total Protein Albumin HDL Cholesterol Arterial Blood Glucose Arterial Blood Ionized Calcium Urine WBC (Auto) Urine Creatinine 06/06/21 06/07/21 06/07/21 23:53 04:45 04:45 WBC 21.5 H RBC 2.71 L Hgb 9.0 L Hct 26.9 L MCV 99 H MCH 33 H MCHC RDW 15.3 H [place]da % (Auto) [place]da # (Auto) Seg Neutrophils % Seg Neuts % (Manual) Lymphocytes % (Manual) Monocytes % (Manual) Seg Neutrophils # Seg Neutrophils # Man Lymphocytes # (Manual) Monocytes # (Manual) PT APTT D-Dimer Heparin Anti-Xa Level 0.10 L ABG pH POC ABG pCO2 POC ABG pO2 ABG pO2 ABG Hemoglobin ABG Oxyhemoglobin ABG Sodium ABG Potassium ABG Chloride ABG Glucose Carboxyhemoglobin Sodium Potassium Chloride Carbon Dioxide BUN Creatinine Glucose POC Glucose 224 H Lactic Acid Calcium Phosphorus Magnesium Ferritin AST ALT Alkaline Phosphatase Lactate Dehydrogenase Troponin T C-Reactive Protein Total Protein Albumin HDL Cholesterol Arterial Blood Glucose Arterial Blood Ionized Calcium Urine WBC (Auto) Urine Creatinine 06/07/21 06/07/21 06/07/21 04:45 05:11 11:50 WBC RBC Hgb Hct MCV MCH MCHC RDW [place] % (Auto) [place]da # (Auto) Seg Neutrophils % Seg Neuts % (Manual) Lymphocytes % (Manual) Monocytes % (Manual) Seg Neutrophils # Seg Neutrophils # Man Lymphocytes # (Manual) Monocytes # (Manual) PT APTT D-Dimer Heparin Anti-Xa Level ABG pH POC ABG pCO2 POC ABG pO2 ABG pO2 ABG Hemoglobin ABG Oxyhemoglobin ABG Sodium ABG Potassium ABG Chloride ABG Glucose Carboxyhemoglobin Sodium Potassium 5.4 H Chloride Carbon Dioxide BUN 55 H Creatinine Glucose 178 H POC Glucose 156 H 118 H Lactic Acid Calcium Phosphorus Magnesium Ferritin AST ALT Alkaline Phosphatase Lactate Dehydrogenase Troponin T C-Reactive Protein Total Protein Albumin HDL Cholesterol Arterial Blood Glucose Arterial Blood Ionized Calcium Urine WBC (Auto) Urine Creatinine 06/07/21 06/07/21 06/07/21 14:52 17:45 20:43 WBC RBC Hgb Hct MCV MCH MCHC RDW [place]da % (Auto) [place]da # (Auto) Seg Neutrophils % Seg Neuts % (Manual) Lymphocytes % (Manual) Monocytes % (Manual) Seg Neutrophils # Seg Neutrophils # Man Lymphocytes # (Manual) Monocytes # (Manual) PT APTT D-Dimer Heparin Anti-Xa Level 0.73 H ABG pH POC ABG pCO2 POC ABG pO2 ABG pO2 ABG Hemoglobin ABG Oxyhemoglobin ABG Sodium ABG Potassium ABG Chloride ABG Glucose Carboxyhemoglobin Sodium Potassium Chloride Carbon Dioxide BUN Creatinine Glucose POC Glucose 164 H Lactic Acid Calcium Phosphorus Magnesium Ferritin AST ALT Alkaline Phosphatase Lactate Dehydrogenase Troponin T C-Reactive Protein 28.90 H Total Protein Albumin HDL Cholesterol Arterial Blood Glucose Arterial Blood Ionized Calcium Urine WBC (Auto) Urine Creatinine 06/07/21 06/08/21 06/08/21 23:15 04:25 04:25 WBC 15.8 H RBC 2.58 L Hgb 8.6 L Hct 25.7 L MCV 100 H MCH 33 H MCHC RDW [place]mer[place]da % (Auto) [place]mer[place]da # (Auto) Seg Neutrophils % Seg Neuts % (Manual) 76.0 H Lymphocytes % (Manual) 6.0 L Monocytes % (Manual) 8.0 H Seg Neutrophils # Seg Neutrophils # Man 12.0 H Lymphocytes # (Manual) 0.9 L Monocytes # (Manual) 1.3 H PT APTT D-Dimer Heparin Anti-Xa Level ABG pH POC ABG pCO2 POC ABG pO2 ABG pO2 ABG Hemoglobin ABG Oxyhemoglobin ABG Sodium ABG Potassium ABG Chloride ABG Glucose Carboxyhemoglobin Sodium Potassium Chloride Carbon Dioxide BUN 65 H Creatinine Glucose 205 H POC Glucose 236 H Lactic Acid Calcium Phosphorus Magnesium Ferritin AST ALT Alkaline Phosphatase Lactate Dehydrogenase Troponin T C-Reactive Protein Total Protein Albumin HDL Cholesterol Arterial Blood Glucose Arterial Blood Ionized Calcium Urine WBC (Auto) Urine Creatinine 06/08/21 06/08/21 06/08/21 05:36 11:18 17:41 WBC RBC Hgb Hct MCV MCH MCHC RDW [place] % (Auto) [place]da # (Auto) Seg Neutrophils % Seg Neuts % (Manual) Lymphocytes % (Manual) Monocytes % (Manual) Seg Neutrophils # Seg Neutrophils # Man Lymphocytes # (Manual) Monocytes # (Manual) PT APTT D-Dimer Heparin Anti-Xa Level ABG pH POC ABG pCO2 POC ABG pO2 ABG pO2 ABG Hemoglobin ABG Oxyhemoglobin ABG Sodium ABG Potassium ABG Chloride ABG Glucose Carboxyhemoglobin Sodium Potassium Chloride Carbon Dioxide BUN Creatinine Glucose POC Glucose 185 H 203 H 173 H Lactic Acid Calcium Phosphorus Magnesium Ferritin AST ALT Alkaline Phosphatase Lactate Dehydrogenase Troponin T C-Reactive Protein Total Protein Albumin HDL Cholesterol Arterial Blood Glucose Arterial Blood Ionized Calcium Urine WBC (Auto) Urine Creatinine 06/08/21 06/09/21 06/09/21 23:34 05:16 05:20 WBC 15.0 H RBC 2.54 L Hgb 8.5 L Hct 25.2 L MCV 99 H MCH 33 H MCHC RDW [place]mer[place]da % (Auto) [place]da # (Auto) Seg Neutrophils % Seg Neuts % (Manual) Lymphocytes % (Manual) Monocytes % (Manual) Seg Neutrophils # Seg Neutrophils # Man Lymphocytes # (Manual) Monocytes # (Manual) PT APTT D-Dimer Heparin Anti-Xa Level ABG pH POC ABG pCO2 POC ABG pO2 ABG pO2 ABG Hemoglobin ABG Oxyhemoglobin ABG Sodium ABG Potassium ABG Chloride ABG Glucose Carboxyhemoglobin Sodium Potassium Chloride Carbon Dioxide BUN Creatinine Glucose POC Glucose 200 H 154 H Lactic Acid Calcium Phosphorus Magnesium Ferritin AST ALT Alkaline Phosphatase Lactate Dehydrogenase Troponin T C-Reactive Protein Total Protein Albumin HDL Cholesterol Arterial Blood Glucose Arterial Blood Ionized Calcium Urine WBC (Auto) Urine Creatinine 06/09/21 06/09/21 06/09/21 05:20 11:40 17:09 WBC RBC Hgb Hct MCV MCH MCHC RDW [place] % (Auto) [place]mer[place]da # (Auto) Seg Neutrophils % Seg Neuts % (Manual) Lymphocytes % (Manual) Monocytes % (Manual) Seg Neutrophils # Seg Neutrophils # Man Lymphocytes # (Manual) Monocytes # (Manual) PT APTT D-Dimer Heparin Anti-Xa Level ABG pH POC ABG pCO2 POC ABG pO2 ABG pO2 ABG Hemoglobin ABG Oxyhemoglobin ABG Sodium ABG Potassium ABG Chloride ABG Glucose Carboxyhemoglobin Sodium Potassium 5.2 H Chloride Carbon Dioxide BUN 69 H Creatinine Glucose 163 H POC Glucose 232 H 137 H Lactic Acid Calcium Phosphorus Magnesium Ferritin AST ALT Alkaline Phosphatase Lactate Dehydrogenase Troponin T C-Reactive Protein Total Protein Albumin HDL Cholesterol Arterial Blood Glucose Arterial Blood Ionized Calcium Urine WBC (Auto) Urine Creatinine 06/09/21 06/10/21 06/10/21 23:31 04:42 04:42 WBC 14.5 H RBC 2.41 L Hgb 8.2 L Hct 24.0 L MCV 100 H MCH 34 H MCHC RDW 15.8 H [place] % (Auto) [place] # (Auto) Seg Neutrophils % Seg Neuts % (Manual) Lymphocytes % (Manual) Monocytes % (Manual) Seg Neutrophils # Seg Neutrophils # Man Lymphocytes # (Manual) Monocytes # (Manual) PT APTT D-Dimer Heparin Anti-Xa Level ABG pH POC ABG pCO2 POC ABG pO2 ABG pO2 ABG Hemoglobin ABG Oxyhemoglobin ABG Sodium ABG Potassium ABG Chloride ABG Glucose Carboxyhemoglobin Sodium 146 H D Potassium 3.4 L D Chloride Carbon Dioxide BUN 62 H Creatinine Glucose 174 H POC Glucose 162 H Lactic Acid Calcium Phosphorus Magnesium Ferritin AST ALT Alkaline Phosphatase Lactate Dehydrogenase Troponin T C-Reactive Protein Total Protein Albumin HDL Cholesterol Arterial Blood Glucose Arterial Blood Ionized Calcium Urine WBC (Auto) Urine Creatinine 06/10/21 06/10/21 06/10/21 05:36 11:43 18:24 WBC RBC Hgb Hct MCV MCH MCHC RDW [place]mer[place]da % (Auto) [place]mer[place]da # (Auto) Seg Neutrophils % Seg Neuts % (Manual) Lymphocytes % (Manual) Monocytes % (Manual) Seg Neutrophils # Seg Neutrophils # Man Lymphocytes # (Manual) Monocytes # (Manual) PT APTT D-Dimer Heparin Anti-Xa Level ABG pH POC ABG pCO2 POC ABG pO2 ABG pO2 ABG Hemoglobin ABG Oxyhemoglobin ABG Sodium ABG Potassium ABG Chloride ABG Glucose Carboxyhemoglobin Sodium Potassium Chloride Carbon Dioxide BUN Creatinine Glucose POC Glucose 149 H 183 H 139 H Lactic Acid Calcium Phosphorus Magnesium Ferritin AST ALT Alkaline Phosphatase Lactate Dehydrogenase Troponin T C-Reactive Protein Total Protein Albumin HDL Cholesterol Arterial Blood Glucose Arterial Blood Ionized Calcium Urine WBC (Auto) Urine Creatinine 06/10/21 06/11/21 06/11/21 23:32 04:17 05:22 WBC RBC Hgb Hct MCV MCH MCHC RDW [place]mer[place] % (Auto) [place]mer[place]da # (Auto) Seg Neutrophils % Seg Neuts % (Manual) Lymphocytes % (Manual) Monocytes % (Manual) Seg Neutrophils # Seg Neutrophils # Man Lymphocytes # (Manual) Monocytes # (Manual) PT APTT D-Dimer Heparin Anti-Xa Level 0.84 H ABG pH POC ABG pCO2 POC ABG pO2 ABG pO2 ABG Hemoglobin ABG Oxyhemoglobin ABG Sodium ABG Potassium ABG Chloride ABG Glucose Carboxyhemoglobin Sodium Potassium Chloride Carbon Dioxide BUN Creatinine Glucose POC Glucose 149 H 138 H Lactic Acid Calcium Phosphorus Magnesium Ferritin AST ALT Alkaline Phosphatase Lactate Dehydrogenase Troponin T C-Reactive Protein Total Protein Albumin HDL Cholesterol Arterial Blood Glucose Arterial Blood Ionized Calcium Urine WBC (Auto) Urine Creatinine 06/11/21 06/11/21 06/12/21 11:26 23:56 04:44 WBC 15.5 H RBC 2.59 L Hgb 8.6 L Hct 25.8 L MCV 100 H MCH 33 H MCHC RDW 15.3 H [place] % (Auto) [place]mer[place]da # (Auto) Seg Neutrophils % Seg Neuts % (Manual) Lymphocytes % (Manual) Monocytes % (Manual) Seg Neutrophils # Seg Neutrophils # Man Lymphocytes # (Manual) Monocytes # (Manual) PT APTT D-Dimer Heparin Anti-Xa Level ABG pH POC ABG pCO2 POC ABG pO2 ABG pO2 ABG Hemoglobin ABG Oxyhemoglobin ABG Sodium ABG Potassium ABG Chloride ABG Glucose Carboxyhemoglobin Sodium Potassium Chloride Carbon Dioxide BUN Creatinine Glucose POC Glucose 198 H 199 H Lactic Acid Calcium Phosphorus Magnesium Ferritin AST ALT Alkaline Phosphatase Lactate Dehydrogenase Troponin T C-Reactive Protein Total Protein Albumin HDL Cholesterol Arterial Blood Glucose Arterial Blood Ionized Calcium Urine WBC (Auto) Urine Creatinine 06/12/21 06/12/21 06/12/21 04:44 04:44 05:29 WBC RBC Hgb Hct MCV MCH MCHC RDW [place]mer[place]da % (Auto) [place]mer[place]da # (Auto) Seg Neutrophils % Seg Neuts % (Manual) Lymphocytes % (Manual) Monocytes % (Manual) Seg Neutrophils # Seg Neutrophils # Man Lymphocytes # (Manual) Monocytes # (Manual) PT APTT D-Dimer Heparin Anti-Xa Level ABG pH POC ABG pCO2 POC ABG pO2 ABG pO2 ABG Hemoglobin ABG Oxyhemoglobin ABG Sodium ABG Potassium ABG Chloride ABG Glucose Carboxyhemoglobin Sodium 148 H Potassium Chloride Carbon Dioxide BUN 49 H 51 H Creatinine Glucose 222 H 223 H POC Glucose 193 H Lactic Acid Calcium Phosphorus Magnesium 3.20 H Ferritin AST 81 H ALT 83 H Alkaline Phosphatase 215 H Lactate Dehydrogenase Troponin T C-Reactive Protein Total Protein Albumin 3.2 L HDL Cholesterol Arterial Blood Glucose Arterial Blood Ionized Calcium Urine WBC (Auto) Urine Creatinine 06/12/21 06/12/21 06/12/21 11:21 17:55 23:23 WBC RBC Hgb Hct MCV MCH MCHC RDW [place]mer[place]da % (Auto) [place]da # (Auto) Seg Neutrophils % Seg Neuts % (Manual) Lymphocytes % (Manual) Monocytes % (Manual) Seg Neutrophils # Seg Neutrophils # Man Lymphocytes # (Manual) Monocytes # (Manual) PT APTT D-Dimer Heparin Anti-Xa Level ABG pH POC ABG pCO2 POC ABG pO2 ABG pO2 ABG Hemoglobin ABG Oxyhemoglobin ABG Sodium ABG Potassium ABG Chloride ABG Glucose Carboxyhemoglobin Sodium Potassium Chloride Carbon Dioxide BUN Creatinine Glucose POC Glucose 185 H 210 H 211 H Lactic Acid Calcium Phosphorus Magnesium Ferritin AST ALT Alkaline Phosphatase Lactate Dehydrogenase Troponin T C-Reactive Protein Total Protein Albumin HDL Cholesterol Arterial Blood Glucose Arterial Blood Ionized Calcium Urine WBC (Auto) Urine Creatinine 06/13/21 06/13/21 06/13/21 04:34 04:34 05:17 WBC 17.2 H RBC 2.56 L Hgb 8.6 L Hct 26.1 L MCV 102 H MCH 34 H MCHC RDW [place]mer[place]da % (Auto) [place]da # (Auto) Seg Neutrophils % Seg Neuts % (Manual) Lymphocytes % (Manual) Monocytes % (Manual) Seg Neutrophils # Seg Neutrophils # Man Lymphocytes # (Manual) Monocytes # (Manual) PT APTT D-Dimer Heparin Anti-Xa Level ABG pH POC ABG pCO2 POC ABG pO2 ABG pO2 ABG Hemoglobin ABG Oxyhemoglobin ABG Sodium ABG Potassium ABG Chloride ABG Glucose Carboxyhemoglobin Sodium 149 H Potassium 5.1 H Chloride Carbon Dioxide BUN 52 H Creatinine 1.6 H Glucose 231 H POC Glucose 207 H Lactic Acid Calcium Phosphorus Magnesium Ferritin AST 69 H ALT 74 H Alkaline Phosphatase 197 H Lactate Dehydrogenase Troponin T C-Reactive Protein Total Protein Albumin 3.0 L HDL Cholesterol Arterial Blood Glucose Arterial Blood Ionized Calcium Urine WBC (Auto) Urine Creatinine 06/13/21 06/13/21 06/13/21 10:44 11:07 12:07 WBC RBC Hgb Hct MCV MCH MCHC RDW [place]mer[place]da % (Auto) [place]da # (Auto) Seg Neutrophils % Seg Neuts % (Manual) Lymphocytes % (Manual) Monocytes % (Manual) Seg Neutrophils # Seg Neutrophils # Man Lymphocytes # (Manual) Monocytes # (Manual) PT APTT D-Dimer Heparin Anti-Xa Level < 0.10 L ABG pH 7.455 H POC ABG pCO2 POC ABG pO2 ABG pO2 ABG Hemoglobin 8.6 L ABG Oxyhemoglobin ABG Sodium ABG Potassium 4.7 H ABG Chloride ABG Glucose 277 H Carboxyhemoglobin Sodium Potassium Chloride Carbon Dioxide BUN Creatinine Glucose POC Glucose 241 H Lactic Acid Calcium Phosphorus Magnesium Ferritin AST ALT Alkaline Phosphatase Lactate Dehydrogenase Troponin T C-Reactive Protein Total Protein Albumin HDL Cholesterol Arterial Blood Glucose 277 H Arterial Blood Ionized Calcium Urine WBC (Auto) Urine Creatinine 06/13/21 06/13/21 06/13/21 17:35 21:13 23:19 WBC RBC Hgb Hct MCV MCH MCHC RDW [place]mer[place] % (Auto) [place]da # (Auto) Seg Neutrophils % Seg Neuts % (Manual) Lymphocytes % (Manual) Monocytes % (Manual) Seg Neutrophils # Seg Neutrophils # Man Lymphocytes # (Manual) Monocytes # (Manual) PT APTT D-Dimer Heparin Anti-Xa Level 0.92 H ABG pH POC ABG pCO2 POC ABG pO2 ABG pO2 ABG Hemoglobin ABG Oxyhemoglobin ABG Sodium ABG Potassium ABG Chloride ABG Glucose Carboxyhemoglobin Sodium Potassium Chloride Carbon Dioxide BUN Creatinine Glucose POC Glucose 233 H 232 H Lactic Acid Calcium Phosphorus Magnesium Ferritin AST ALT Alkaline Phosphatase Lactate Dehydrogenase Troponin T C-Reactive Protein Total Protein Albumin HDL Cholesterol Arterial Blood Glucose Arterial Blood Ionized Calcium Urine WBC (Auto) Urine Creatinine 06/14/21 06/14/21 06/14/21 04:21 04:21 05:36 WBC 15.6 H RBC 2.26 L Hgb 7.6 L Hct 22.9 L MCV 101 H MCH 34 H MCHC RDW 15.3 H [place] % (Auto) [place]mer[place]da # (Auto) Seg Neutrophils % Seg Neuts % (Manual) Lymphocytes % (Manual) Monocytes % (Manual) Seg Neutrophils # Seg Neutrophils # Man Lymphocytes # (Manual) Monocytes # (Manual) PT APTT D-Dimer Heparin Anti-Xa Level ABG pH POC ABG pCO2 POC ABG pO2 ABG pO2 ABG Hemoglobin ABG Oxyhemoglobin ABG Sodium ABG Potassium ABG Chloride ABG Glucose Carboxyhemoglobin Sodium 149 H Potassium Chloride 107.8 H Carbon Dioxide BUN 66 H Creatinine 1.8 H Glucose 192 H POC Glucose 166 H Lactic Acid Calcium Phosphorus Magnesium Ferritin AST ALT Alkaline Phosphatase Lactate Dehydrogenase Troponin T C-Reactive Protein Total Protein Albumin HDL Cholesterol Arterial Blood Glucose Arterial Blood Ionized Calcium Urine WBC (Auto) Urine Creatinine 06/14/21 06/14/21 06/14/21 12:21 17:07 23:14 WBC RBC Hgb Hct MCV MCH MCHC RDW [place]mer[place]da % (Auto) [place]mer[place]da # (Auto) Seg Neutrophils % Seg Neuts % (Manual) Lymphocytes % (Manual) Monocytes % (Manual) Seg Neutrophils # Seg Neutrophils # Man Lymphocytes # (Manual) Monocytes # (Manual) PT APTT D-Dimer Heparin Anti-Xa Level ABG pH POC ABG pCO2 POC ABG pO2 ABG pO2 ABG Hemoglobin ABG Oxyhemoglobin ABG Sodium ABG Potassium ABG Chloride ABG Glucose Carboxyhemoglobin Sodium Potassium Chloride Carbon Dioxide BUN Creatinine Glucose POC Glucose 190 H 172 H 195 H Lactic Acid Calcium Phosphorus Magnesium Ferritin AST ALT Alkaline Phosphatase Lactate Dehydrogenase Troponin T C-Reactive Protein Total Protein Albumin HDL Cholesterol Arterial Blood Glucose Arterial Blood Ionized Calcium Urine WBC (Auto) Urine Creatinine 06/15/21 06/15/21 06/15/21 05:08 05:08 05:47 WBC 15.3 H RBC 2.23 L Hgb 7.3 L Hct 22.5 L MCV 101 H MCH 33 H MCHC RDW [place]mer[place]da % (Auto) [place] # (Auto) Seg Neutrophils % Seg Neuts % (Manual) Lymphocytes % (Manual) Monocytes % (Manual) Seg Neutrophils # Seg Neutrophils # Man Lymphocytes # (Manual) Monocytes # (Manual) PT APTT D-Dimer Heparin Anti-Xa Level ABG pH POC ABG pCO2 POC ABG pO2 ABG pO2 ABG Hemoglobin ABG Oxyhemoglobin ABG Sodium ABG Potassium ABG Chloride ABG Glucose Carboxyhemoglobin Sodium 147 H Potassium Chloride Carbon Dioxide BUN 60 H Creatinine 1.6 H Glucose 158 H POC Glucose 150 H Lactic Acid Calcium 8.2 L Phosphorus 5.90 H Magnesium 3.20 H Ferritin AST ALT Alkaline Phosphatase Lactate Dehydrogenase Troponin T C-Reactive Protein Total Protein Albumin HDL Cholesterol Arterial Blood Glucose Arterial Blood Ionized Calcium Urine WBC (Auto) Urine Creatinine 06/15/21 06/15/21 06/15/21 10:19 11:25 17:47 WBC RBC Hgb Hct MCV MCH MCHC RDW Esmeralda % (Auto) Esmeralda # (Auto) Seg Neutrophils % Seg Neuts % (Manual) Lymphocytes % (Manual) Monocytes % (Manual) Seg Neutrophils # Seg Neutrophils # Man Lymphocytes # (Manual) Monocytes # (Manual) PT APTT D-Dimer Heparin Anti-Xa Level ABG pH 7.471 H POC ABG pCO2 POC ABG pO2 ABG pO2 ABG Hemoglobin ABG Oxyhemoglobin ABG Sodium ABG Potassium ABG Chloride ABG Glucose Carboxyhemoglobin Sodium Potassium Chloride Carbon Dioxide BUN Creatinine Glucose POC Glucose 133 H 201 H Lactic Acid Calcium Phosphorus Magnesium Ferritin AST ALT Alkaline Phosphatase Lactate Dehydrogenase Troponin T C-Reactive Protein Total Protein Albumin HDL Cholesterol Arterial Blood Glucose Arterial Blood Ionized Calcium Urine WBC (Auto) Urine Creatinine 06/15/21 06/15/21 06/16/21 23:43 Unknown 04:31 WBC 13.8 H RBC 2.23 L Hgb 7.5 L Hct 22.4 L MCV 101 H MCH 34 H MCHC RDW Esmeralda % (Auto) Esmeralda # (Auto) Seg Neutrophils % Seg Neuts % (Manual) Lymphocytes % (Manual) Monocytes % (Manual) Seg Neutrophils # Seg Neutrophils # Man Lymphocytes # (Manual) Monocytes # (Manual) PT APTT D-Dimer Heparin Anti-Xa Level ABG pH POC ABG pCO2 POC ABG pO2 ABG pO2 ABG Hemoglobin ABG Oxyhemoglobin ABG Sodium ABG Potassium ABG Chloride ABG Glucose Carboxyhemoglobin Sodium Potassium Chloride Carbon Dioxide BUN Creatinine Glucose POC Glucose 148 H Lactic Acid Calcium Phosphorus Magnesium Ferritin AST ALT Alkaline Phosphatase Lactate Dehydrogenase Troponin T C-Reactive Protein Total Protein Albumin HDL Cholesterol Arterial Blood Glucose Arterial Blood Ionized Calcium Urine WBC (Auto) Urine Creatinine 74.7 H 06/16/21 06/16/21 06/16/21 04:31 05:48 11:47 WBC RBC Hgb Hct MCV MCH MCHC RDW Esmer[place]da % (Auto) Esmeralda # (Auto) Seg Neutrophils % Seg Neuts % (Manual) Lymphocytes % (Manual) Monocytes % (Manual) Seg Neutrophils # Seg Neutrophils # Man Lymphocytes # (Manual) Monocytes # (Manual) PT APTT D-Dimer Heparin Anti-Xa Level ABG pH POC ABG pCO2 POC ABG pO2 ABG pO2 ABG Hemoglobin ABG Oxyhemoglobin ABG Sodium ABG Potassium ABG Chloride ABG Glucose Carboxyhemoglobin Sodium Potassium Chloride Carbon Dioxide BUN 49 H Creatinine 1.3 H Glucose 194 H POC Glucose 184 H 190 H Lactic Acid Calcium Phosphorus 5.40 H Magnesium 2.90 H Ferritin AST ALT Alkaline Phosphatase Lactate Dehydrogenase Troponin T C-Reactive Protein Total Protein Albumin HDL Cholesterol Arterial Blood Glucose Arterial Blood Ionized Calcium Urine WBC (Auto) Urine Creatinine 06/16/21 06/16/21 06/16/21 18:51 18:51 23:13 WBC 12.4 H RBC 2.22 L Hgb 7.3 L Hct 22.4 L MCV 101 H MCH 33 H MCHC RDW Esmer[place]da % (Auto) Esmeralda # (Auto) Seg Neutrophils % Seg Neuts % (Manual) Lymphocytes % (Manual) Monocytes % (Manual) Seg Neutrophils # Seg Neutrophils # Man Lymphocytes # (Manual) Monocytes # (Manual) PT APTT 64.1 H* D-Dimer Heparin Anti-Xa Level ABG pH POC ABG pCO2 POC ABG pO2 ABG pO2 ABG Hemoglobin ABG Oxyhemoglobin ABG Sodium ABG Potassium ABG Chloride ABG Glucose Carboxyhemoglobin Sodium Potassium Chloride Carbon Dioxide BUN Creatinine Glucose POC Glucose 160 H Lactic Acid Calcium Phosphorus Magnesium Ferritin AST ALT Alkaline Phosphatase Lactate Dehydrogenase Troponin T C-Reactive Protein Total Protein Albumin HDL Cholesterol Arterial Blood Glucose Arterial Blood Ionized Calcium Urine WBC (Auto) Urine Creatinine 06/17/21 06/17/21 06/17/21 04:19 05:02 11:56 WBC RBC Hgb Hct MCV MCH MCHC RDW Esmer[place]da % (Auto) Esmeralda # (Auto) Seg Neutrophils % Seg Neuts % (Manual) Lymphocytes % (Manual) Monocytes % (Manual) Seg Neutrophils # Seg Neutrophils # Man Lymphocytes # (Manual) Monocytes # (Manual) PT APTT D-Dimer Heparin Anti-Xa Level 1.53 H ABG pH POC ABG pCO2 POC ABG pO2 ABG pO2 ABG Hemoglobin ABG Oxyhemoglobin ABG Sodium ABG Potassium ABG Chloride ABG Glucose Carboxyhemoglobin Sodium Potassium Chloride Carbon Dioxide BUN Creatinine Glucose POC Glucose 167 H 166 H Lactic Acid Calcium Phosphorus Magnesium Ferritin AST ALT Alkaline Phosphatase Lactate Dehydrogenase Troponin T C-Reactive Protein Total Protein Albumin HDL Cholesterol Arterial Blood Glucose Arterial Blood Ionized Calcium Urine WBC (Auto) Urine Creatinine 06/17/21 06/17/21 06/17/21 17:48 22:42 23:08 WBC RBC Hgb Hct MCV MCH MCHC RDW Esmer[place]da % (Auto) Esmeralda # (Auto) Seg Neutrophils % Seg Neuts % (Manual) Lymphocytes % (Manual) Monocytes % (Manual) Seg Neutrophils # Seg Neutrophils # Man Lymphocytes # (Manual) Monocytes # (Manual) PT APTT D-Dimer Heparin Anti-Xa Level ABG pH POC ABG pCO2 POC ABG pO2 ABG pO2 ABG Hemoglobin ABG Oxyhemoglobin ABG Sodium ABG Potassium ABG Chloride ABG Glucose Carboxyhemoglobin Sodium Potassium Chloride Carbon Dioxide BUN Creatinine Glucose POC Glucose 159 H 122 H 114 H Lactic Acid Calcium Phosphorus Magnesium Ferritin AST ALT Alkaline Phosphatase Lactate Dehydrogenase Troponin T C-Reactive Protein Total Protein Albumin HDL Cholesterol Arterial Blood Glucose Arterial Blood Ionized Calcium Urine WBC (Auto) Urine Creatinine 06/18/21 06/18/21 06/18/21 05:40 06:20 13:11 WBC RBC 2.19 L Hgb 7.3 L Hct 21.9 L MCV 100 H MCH 33 H MCHC RDW Esmer[place]da % (Auto) Esmeralda # (Auto) Seg Neutrophils % Seg Neuts % (Manual) Lymphocytes % (Manual) Monocytes % (Manual) Seg Neutrophils # Seg Neutrophils # Man Lymphocytes # (Manual) Monocytes # (Manual) PT APTT D-Dimer Heparin Anti-Xa Level ABG pH POC ABG pCO2 POC ABG pO2 ABG pO2 ABG Hemoglobin ABG Oxyhemoglobin ABG Sodium ABG Potassium ABG Chloride ABG Glucose Carboxyhemoglobin Sodium Potassium Chloride Carbon Dioxide BUN Creatinine Glucose POC Glucose 174 H 149 H Lactic Acid Calcium Phosphorus Magnesium Ferritin AST ALT Alkaline Phosphatase Lactate Dehydrogenase Troponin T C-Reactive Protein Total Protein Albumin HDL Cholesterol Arterial Blood Glucose Arterial Blood Ionized Calcium Urine WBC (Auto) Urine Creatinine 06/18/21 06/18/21 06/18/21 18:50 21:45 23:12 WBC RBC Hgb Hct MCV MCH MCHC RDW Esmer[place]da % (Auto) Esmeralda # (Auto) Seg Neutrophils % Seg Neuts % (Manual) Lymphocytes % (Manual) Monocytes % (Manual) Seg Neutrophils # Seg Neutrophils # Man Lymphocytes # (Manual) Monocytes # (Manual) PT APTT D-Dimer Heparin Anti-Xa Level ABG pH POC ABG pCO2 POC ABG pO2 ABG pO2 ABG Hemoglobin ABG Oxyhemoglobin ABG Sodium ABG Potassium ABG Chloride ABG Glucose Carboxyhemoglobin Sodium Potassium Chloride Carbon Dioxide BUN Creatinine Glucose POC Glucose 152 H 151 H 178 H Lactic Acid Calcium Phosphorus Magnesium Ferritin AST ALT Alkaline Phosphatase Lactate Dehydrogenase Troponin T C-Reactive Protein Total Protein Albumin HDL Cholesterol Arterial Blood Glucose Arterial Blood Ionized Calcium Urine WBC (Auto) Urine Creatinine 06/19/21 06/19/21 06/19/21 06:20 06:20 11:54 WBC RBC 2.19 L Hgb 7.4 L Hct 22.2 L MCV 102 H MCH 34 H MCHC RDW Esmer[place]da % (Auto) 11.3 H Esmer[place]da # (Auto) 1.0 H Seg Neutrophils % Seg Neuts % (Manual) Lymphocytes % (Manual) Monocytes % (Manual) Seg Neutrophils # Seg Neutrophils # Man Lymphocytes # (Manual) Monocytes # (Manual) PT APTT D-Dimer Heparin Anti-Xa Level ABG pH POC ABG pCO2 POC ABG pO2 ABG pO2 ABG Hemoglobin ABG Oxyhemoglobin ABG Sodium ABG Potassium ABG Chloride ABG Glucose Carboxyhemoglobin Sodium 148 H Potassium Chloride 109.4 H Carbon Dioxide BUN 26 H Creatinine Glucose 109 H POC Glucose 131 H Lactic Acid Calcium Phosphorus Magnesium 2.40 H Ferritin AST ALT Alkaline Phosphatase Lactate Dehydrogenase Troponin T C-Reactive Protein Total Protein Albumin HDL Cholesterol Arterial Blood Glucose Arterial Blood Ionized Calcium Urine WBC (Auto) Urine Creatinine 06/19/21 06/19/21 06/19/21 17:21 21:31 23:13 WBC RBC Hgb Hct MCV MCH MCHC RDW Esmer[place]da % (Auto) Esmeralda # (Auto) Seg Neutrophils % Seg Neuts % (Manual) Lymphocytes % (Manual) Monocytes % (Manual) Seg Neutrophils # Seg Neutrophils # Man Lymphocytes # (Manual) Monocytes # (Manual) PT APTT D-Dimer Heparin Anti-Xa Level ABG pH POC ABG pCO2 POC ABG pO2 ABG pO2 ABG Hemoglobin ABG Oxyhemoglobin ABG Sodium ABG Potassium ABG Chloride ABG Glucose Carboxyhemoglobin Sodium Potassium Chloride Carbon Dioxide BUN Creatinine Glucose POC Glucose 178 H 174 H 216 H Lactic Acid Calcium Phosphorus Magnesium Ferritin AST ALT Alkaline Phosphatase Lactate Dehydrogenase Troponin T C-Reactive Protein Total Protein Albumin HDL Cholesterol Arterial Blood Glucose Arterial Blood Ionized Calcium Urine WBC (Auto) Urine Creatinine 06/20/21 06/20/21 06/20/21 04:18 05:15 11:22 WBC RBC 2.26 L Hgb 7.7 L Hct 22.9 L MCV 101 H MCH 34 H MCHC RDW Esmer[place]da % (Auto) [place]meralda # (Auto) Seg Neutrophils % Seg Neuts % (Manual) Lymphocytes % (Manual) Monocytes % (Manual) Seg Neutrophils # Seg Neutrophils # Man Lymphocytes # (Manual) Monocytes # (Manual) PT APTT D-Dimer Heparin Anti-Xa Level ABG pH POC ABG pCO2 POC ABG pO2 ABG pO2 ABG Hemoglobin ABG Oxyhemoglobin ABG Sodium ABG Potassium ABG Chloride ABG Glucose Carboxyhemoglobin Sodium Potassium Chloride Carbon Dioxide BUN Creatinine Glucose POC Glucose 119 H 177 H Lactic Acid Calcium Phosphorus Magnesium Ferritin AST ALT Alkaline Phosphatase Lactate Dehydrogenase Troponin T C-Reactive Protein Total Protein Albumin HDL Cholesterol Arterial Blood Glucose Arterial Blood Ionized Calcium Urine WBC (Auto) Urine Creatinine 06/20/21 06/20/21 06/20/21 13:30 17:58 21:24 WBC RBC Hgb Hct MCV MCH MCHC RDW Esmer[place]da % (Auto) Esmeralda # (Auto) Seg Neutrophils % Seg Neuts % (Manual) Lymphocytes % (Manual) Monocytes % (Manual) Seg Neutrophils # Seg Neutrophils # Man Lymphocytes # (Manual) Monocytes # (Manual) PT APTT D-Dimer Heparin Anti-Xa Level ABG pH POC ABG pCO2 POC ABG pO2 ABG pO2 ABG Hemoglobin ABG Oxyhemoglobin ABG Sodium ABG Potassium ABG Chloride ABG Glucose Carboxyhemoglobin Sodium Potassium Chloride Carbon Dioxide BUN 31 H Creatinine Glucose 196 H POC Glucose 151 H 141 H Lactic Acid Calcium Phosphorus Magnesium Ferritin AST ALT Alkaline Phosphatase Lactate Dehydrogenase Troponin T C-Reactive Protein Total Protein Albumin HDL Cholesterol Arterial Blood Glucose Arterial Blood Ionized Calcium Urine WBC (Auto) Urine Creatinine 06/20/21 06/21/21 06/21/21 23:46 04:07 04:59 WBC RBC Hgb Hct MCV MCH MCHC RDW [place]mer[place]da % (Auto) [place]mer[place]da # (Auto) Seg Neutrophils % Seg Neuts % (Manual) Lymphocytes % (Manual) Monocytes % (Manual) Seg Neutrophils # Seg Neutrophils # Man Lymphocytes # (Manual) Monocytes # (Manual) PT APTT D-Dimer Heparin Anti-Xa Level ABG pH POC ABG pCO2 POC ABG pO2 ABG pO2 ABG Hemoglobin ABG Oxyhemoglobin ABG Sodium ABG Potassium ABG Chloride ABG Glucose Carboxyhemoglobin Sodium Potassium Chloride Carbon Dioxide BUN 36 H Creatinine Glucose 220 H POC Glucose 137 H 213 H Lactic Acid Calcium Phosphorus Magnesium Ferritin AST 79 H ALT 79 H Alkaline Phosphatase 159 H Lactate Dehydrogenase Troponin T C-Reactive Protein Total Protein Albumin 2.6 L HDL Cholesterol Arterial Blood Glucose Arterial Blood Ionized Calcium Urine WBC (Auto) Urine Creatinine 06/21/21 06/21/21 06/21/21 08:10 11:45 17:18 WBC RBC 2.13 L Hgb 7.4 L Hct 21.1 L MCV 99 H MCH 35 H MCHC 35 H RDW Esmer[place]da % (Auto) 9.3 H [place]mer[place]da # (Auto) 0.9 H Seg Neutrophils % Seg Neuts % (Manual) Lymphocytes % (Manual) Monocytes % (Manual) Seg Neutrophils # Seg Neutrophils # Man Lymphocytes # (Manual) Monocytes # (Manual) PT APTT D-Dimer Heparin Anti-Xa Level ABG pH POC ABG pCO2 POC ABG pO2 ABG pO2 ABG Hemoglobin ABG Oxyhemoglobin ABG Sodium ABG Potassium ABG Chloride ABG Glucose Carboxyhemoglobin Sodium Potassium Chloride Carbon Dioxide BUN Creatinine Glucose POC Glucose 176 H 129 H Lactic Acid Calcium Phosphorus Magnesium Ferritin AST ALT Alkaline Phosphatase Lactate Dehydrogenase Troponin T C-Reactive Protein Total Protein Albumin HDL Cholesterol Arterial Blood Glucose Arterial Blood Ionized Calcium Urine WBC (Auto) Urine Creatinine 06/21/21 06/22/21 06/22/21 23:02 04:36 04:36 WBC RBC 2.38 L Hgb 8.0 L Hct 23.7 L MCV 100 H MCH 33 H MCHC RDW [place]mer[place]da % (Auto) [place]mer[place]da # (Auto) Seg Neutrophils % Seg Neuts % (Manual) Lymphocytes % (Manual) Monocytes % (Manual) Seg Neutrophils # Seg Neutrophils # Man Lymphocytes # (Manual) Monocytes # (Manual) PT APTT D-Dimer Heparin Anti-Xa Level ABG pH POC ABG pCO2 POC ABG pO2 ABG pO2 ABG Hemoglobin ABG Oxyhemoglobin ABG Sodium ABG Potassium ABG Chloride ABG Glucose Carboxyhemoglobin Sodium Potassium Chloride Carbon Dioxide BUN 36 H Creatinine Glucose 167 H POC Glucose 111 H Lactic Acid Calcium Phosphorus Magnesium Ferritin AST ALT Alkaline Phosphatase Lactate Dehydrogenase Troponin T C-Reactive Protein Total Protein Albumin HDL Cholesterol Arterial Blood Glucose Arterial Blood Ionized Calcium Urine WBC (Auto) Urine Creatinine 06/22/21 06/22/21 05:22 12:12 WBC RBC Hgb Hct MCV MCH MCHC RDW [place]mer[place]da % (Auto) [place]mer[place]da # (Auto) Seg Neutrophils % Seg Neuts % (Manual) Lymphocytes % (Manual) Monocytes % (Manual) Seg Neutrophils # Seg Neutrophils # Man Lymphocytes # (Manual) Monocytes # (Manual) PT APTT D-Dimer Heparin Anti-Xa Level ABG pH POC ABG pCO2 POC ABG pO2 ABG pO2 ABG Hemoglobin ABG Oxyhemoglobin ABG Sodium ABG Potassium ABG Chloride ABG Glucose Carboxyhemoglobin Sodium Potassium Chloride Carbon Dioxide BUN Creatinine Glucose POC Glucose 160 H 176 H Lactic Acid Calcium Phosphorus Magnesium Ferritin AST ALT Alkaline Phosphatase Lactate Dehydrogenase Troponin T C-Reactive Protein Total Protein Albumin HDL Cholesterol Arterial Blood Glucose Arterial Blood Ionized Calcium Urine WBC (Auto) Urine Creatinine Allied health notes reviewed: nursing
--- NOTE | 2021-06-22 17:15 | Progress Note ---
<TOBIAS QUIROS - Last Filed: 06/22/21 17:43> Assessment and Plan Assessment and plan: This is a 65 year old female with HTN, nonepileptic spells, PTSD, close head injury, DM, CAD s/p stents and GA, independence, hyperlipidemia admitted with sepsis, pneumonia, acute proximal respiratory failure, toxic metabolic encephalo jaky, suspected anoxic brain injury, metabolic acidosis Hospital Course to Date: 05/26/21: Updated family at the bedside, Covid test is negative. Will order EEG and neuro consult. Remains intubated, follow clinically. Sedated on Midazolam and Propofol, just received one dose of Lorazepam for witnessed seizure by RN. NSR now, on heparin drip 05/27/21; remains intubated. pending EEG and neuro eval. wean off vent as tolerated. Continue heparin drip per cardiology, replete potassium yesterday, follow BMP. BP noted to be elevated, next started on antihypertensives. 05/28/21; BP noted to be elevated, initiated on antihypertensive, remains intubated. Pending neurology evaluation and EEG. Continue supportive care, follow BMP. 05/29/21: Ordered for MRI brain, continue Keppra, pending EEG. Appreciate neuro recommendation. follow BMP, tolerating TF 05/30/21: Patient remains intubated, pending MRI brain, follow neurology recommendation. EEG showed diffuse slowing. 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 off sedation now, cont to follow. gurded prognosis 06/01: MRI was suggestive of watershed infarct bilaterally and was seen by neurology and recommend to do MRI with gadolinium. Patient is off sedation and still unresponsive. Prognosis is guarded. 06/02: Continue current management. Prognosis is guarded. Patient needs trach. 06/03: Patient is unresponsive spite of all sedatives. Prognosis is guarded to poor. Neurology consult appreciated. 06/04: Patient is unresponsive. Patient is off sedatives. Blood sugar is uncontrolled and I adjusted her insulin. Neurology consult appreciated. Prognosis is guarded to poor. 06/05/21- Patient remains ETT and on vent support. Off sedation with some improvement in neuro status, but is not following commands. Patient is tolerating SBT trial this am, still on the heparin gtt. AM labs is pending. Patient is still hyperglycemic, increased Qhs lantus. Continue supportive care. 06/06/21- Patient is intubated and on the vent. No longer on sedation, awake but unresponsive, tolerating SBT. Hyperglycemia this am, X1 dose of kayaxalate orderd. Persistent hyperglycemia, insulin adjusted. Continue to monitor electrolytes, repeat BMP this afternoon and am labs ordered. 06/07/21- Patient remains intubated and on the vent. Neuro status is unchanged, spontaneously open yes but is not following commands. SBT trial again, plan to place back on a rate overnight. Leukocytosis noted from this morning lab, stat procalc and CRP ordered, d/w CCM no abx at this time. K 5.4 today, kayalalxate given. Continue to monitor leukocytosis and electrolytes. Am labs ordered 06/08/21- Patient remains intubated and on the vent with no significant change in her neuro status. Patient with no BM in 7days, abdominal soft with positive bowel sounds, colace added and PRN ducolax Supp PRN. Continue to monitor leukocytosis and electrolytes, am labs ordered. Plan for trach and PEG, surgery consulted. 06/09/21- Patient remains stable, intubated with no significant change in neuro status. Trach and Peg cancelled for today. Plan for possibly next week. Hyperkalemia again today, chart review for possible meds interaction. X1 dose of kayexalate ordered. Still no BM today. Episode of emesis today, TF held and NGT to LIS until tommorrow. Orders place for KUB today and Chest XR for the morning. Morning labs ordered. 06/10: Continue supportive care. Trach and PEG planned for early next week. KUB and x-ray with no significant change. Opacity still persist. Critical care management noted. Patient still persistent leukocytosis we will continue to monitor mild hypokalemia noted will replace with potassium. Also noted mild hypernatremia. Agree with holding tube feeds at this time 06/11: Discussed with nursing staff to change to history trickle feeds. Patient is planned for trach and PEG Saturday or Saturday. Continue current management also discussed to hold heparin drip for planned procedure with noted timeframe. We will recheck labs to ensure correction of electrolytes. 06/12/21- Patient's status is unchanged. No significant events overnight. Plan for trach and PEG today. TF and heparin gtt on hold. Continue supportive care. Continue to monitor electrolytes, am labs ordered. 06/13/21- Patient is s/p trach and PEG. D/w surgery okay to use PEGTube and restart TF. Heparin gtt was also restarted per protocol. Persistent hypernatremia and FWF increased for 48hrs, mild hyperkalemia noted no intervention at this time. Continue to monitor renal function and electrolytes, am labs ordered. 06/14: Transition to PO anticoagulation from heparin gtt tomorrow. plan to place on tpiece tomorrow. 06/15: Patient spiked a temp today and was root cultured, h/h decreasing and stool occult ordered. Increase in insulin. T piece trials today. Small volume emesis x2 06/16; patient is on T-piece, On heparin drip for A. fib, will transition to Eliquis , I discussed the case with insert molding operator 06/17; tracheal cultures positive for gram-negative rods, ordered cefepime, f ollow cultures Consider ID consult 06/18 no significant change, patient receiving cefepime[sputum cultures gram- negative rods] Follow sensitivities, ID if needed 06/19- Patient was place on Tpiece this morning, plan for Tpiece for 12hrs and rest on the vent overnight. Patient remains afebrile, leukocytosis improved, and patient remains on empiric IV abx. D/W CCM possible ID consult if worsen. 06/20- No significant change in patient status. Patient is tolerating Tpiece, plan to rest on the vent overnight. Patient TMAX 99.8, leukocytosis remains stable, cefepine transition to Rocephin for +Ecoli in sputum. Consider ID consult if febrile. Will continue to monitor, am labs ordered 06/21- Patient remains stable on the vent, continue daily tpiece trial for 12 hrs then rest on the vent at night. Low grade temp noted TMAx 100.7, d/w CCM ID consult placed for further recommendations. Continue current IV abx for now. Will continue to monitor, am labs ordered. 06/22- Patient is tolerating tpiece @28% and 6L, SPO2 @100%. Vomited yesterday, KUB and CXR are unremarkable, reglan added Q8hrs. Plan to stay on Tpiece overnight, repeat ABG at 2100. Will continue to monitor Assessment and Plan Neuro: Toxic metabolic encephalopathy, likely anoxic brain injury, tonic-cloninc seziure; h/o nonepileptic spells, PTSD, closed head injury -Neurology consulted, appreciate recommendations -CT head completed->see results, without acute or large territorial infarct -Per neurology: MRI brain is suggestive of water shed Infarct Bilateral -- mostly related to Hypoperfusion -06/01 repeat MRI brain noted, possible subacute ischemic changes. -Intact cough/gag, pupils sluggish -Keppra -EEG showed no signs of seizure -prn ativan -Patient is off sedation, open eyes spontaneously, pupils reactive, with +gag and cough. -Not following commands, no movement to stimuli Cardio: S/p cardiac arrest, A. fib with RVR, h/o HTN -Currently on Labetalol, Hydralazine, valsartan, & Doxazosin -PRN hydral IV -Cardiology consulted, appreciate recommendations -05/2020 dobutamine thallium stress test showed normal perfusion study. -05/2020 echo showed normal left ventricular systolic function. -NIBP per protocol Resp: Acute hypoxic respiratory failure -CCM consulted, appreciate recommendations - s/p trach on 06/12 -06/15 T piece trials started, currently on T-piece -see RT notes for titration -ABG/CXR -Continuous SP02 monitoring -Scopalamine and robinul for secretions -VAP bundle GI: Vomiting; protein -aspen malnutrition -Ntr consult for TF -PEG placed 06/12 - 06/22 KUB with no acute abnormality -PPI- Pepcid -BR: senokot, maalox, colace; prn dulcolex -BM: 06/22 : Acute renal injury likely 2/2 to vasomotor nephrology -Renal function remains stable -strict I&O -daily weights -purwick -Trend BMP -Monitor and replete electrolytes as needed -FWF 250 q 4hours -hypernatremia and Cr slightly improving Endo: Hyperglycemia, h/o DM -SSI -Lantus, titrate as needed -Avoid hypoglycemia -accucheck q6 Heme: Leukocytosis -CTA chest without evidence of PE -IV heparin d/t afib -transitioned to PO Eliquis -Trend CBC -Transfuse for hgb<7 ID: Sepsis, Bilateral Lower Lobe Infiltrates -COVID 19 PCR (-) -s/p cefepime 05/25-05/29 -admit cxr with infiltrates, CTA chest with dense dependent consolidation/atelectasis in lungs -Monitor temp and WBC curve -noted spike in temp overnight -CXR, Blood culture, UA, 06/19Sputum culture pos. Ecoli -BC/UC/Tracheal aspirate NGTD from 05/25 -Covid 19 PCR negative -06/07 CRP 28.90 and procal 0.36 -Tracheal aspirate gram-negative rods, empiric antibiotics cefepime ordered, follow culture sensitivities - Cefepine switch to rocephin per sensitivity -Consider ID evaluation if febrile The high probability of a clinically significant, sudden or life threatening deterioration of the [multiple] system(s) required my full and direct attention, intervention and personal management. The aggregate critical care time was [60] minutes. This time is in addition to time spent performing reported procedures but includes the following: [x] Data Review and interpretation [x] Patient assessment and monitoring of vital signs [x] Documentation [x] Medication orders and management Disposition Plan: LTACH pending Total Time Spent with Patient (Minutes): 60 History Interval history: Patient seen and examined at the bedside. Neuro status unchanged, awake and opening eyes spontaneously, but not following any commands. Pt. vomitted TF contents yesterday, TF was hold for few hours but was restarted overnight Hospitalist Physical - Constitutional Vitals: Temp Pulse Resp BP Pulse Ox 99.8 F H 81 24 150/67 98 06/22/21 12:00 06/22/21 16:31 06/22/21 16:31 06/22/21 16:31 06/22/21 16:31 General appearance: Present: no acute distress, well-nourished - EENT Eyes: Present: PERRL - Respiratory Respiratory effort: normal Respiratory: bilateral: diminished - Cardiovascular Rhythm: regular Heart Sounds: Present: S1 & S2 - Extremities Extremities: no ischemia, pulses intact, pulses symmetrical Extremity abnormal: edema - Peripheral Assessment Generalized Edema Type: Non-pitting Edema Degree: 1+ Capillary Refill: < 3 seconds Skin Temperature: Warm Peripheral Pulses: within normal limits - Abdominal General gastrointestinal: soft, non-tender, normal bowel sounds - Integumentary Integumentary: Present: clear, warm, dry - Psychiatric Psychiatric: other ([facility]) - Neurologic Neurologic: other ([facility]) - Allied Health Allied health notes reviewed: nursing HEART Score - HEART Score Troponin: Troponin T 0.226 ng/mL (0.00-0.029) H* D 05/25/21 15:19 Results - Labs CBC & Chem 7: 06/22/21 04:36 06/22/21 04:36 Labs: Laboratory Last Values WBC 8.9 K/mm3 (4.5-11.0) 06/22/21 04:36 RBC 2.38 M/mm3 (3.65-5.03) L 06/22/21 04:36 Hgb 8.0 gm/dl (10.1-14.3) L 06/22/21 04:36 Hct 23.7 % (30.3-42.9) L 06/22/21 04:36 MCV 100 fl (79-97) H 06/22/21 04:36 MCH 33 pg (28-32) H 06/22/21 04:36 MCHC 34 % (30-34) 06/22/21 04:36 RDW 14.7 % (13.2-15.2) 06/22/21 04:36 Plt Count 348 K/mm3 (140-440) 06/22/21 04:36 Lymph % (Auto) 18.7 % (13.4-35.0) 06/21/21 08:10 Miner % (Auto) 9.3 % (0.0-7.3) H 06/21/21 08:10 Eos % (Auto) 2.0 % (0.0-4.3) 06/21/21 08:10 Baso % (Auto) 0.3 % (0.0-1.8) 06/21/21 08:10 Lymph # (Auto) 1.9 K/mm3 (1.2-5.4) 06/21/21 08:10 Miner # (Auto) 0.9 K/mm3 (0.0-0.8) H 06/21/21 08:10 Eos # (Auto) 0.2 K/mm3 (0.0-0.4) 06/21/21 08:10 Baso # (Auto) 0.0 K/mm3 (0.0-0.1) 06/21/21 08:10 Add Manual Diff Complete 06/08/21 04:25 Total Counted 100 06/08/21 04:25 Seg Neutrophils % 69.7 % (40.0-70.0) 06/21/21 08:10 Seg Neuts % (Manual) 76.0 % (40.0-70.0) H 06/08/21 04:25 Band Neutrophils % 4.0 % 06/08/21 04:25 Lymphocytes % (Manual) 6.0 % (13.4-35.0) L 06/08/21 04:25 Monocytes % (Manual) 8.0 % (0.0-7.3) H 06/08/21 04:25 Eosinophils % (Manual) 1.0 % (0.0-4.3) 06/08/21 04:25 Metamyelocytes % 3.0 % 06/08/21 04:25 Myelocytes % 2.0 % 06/08/21 04:25 Nucleated RBC % Not Reportable 06/08/21 04:25 Seg Neutrophils # 7.0 K/mm3 (1.8-7.7) 06/21/21 08:10 Seg Neutrophils # Man 12.0 K/mm3 (1.8-7.7) H 06/08/21 04:25 Band Neutrophils # 0.6 K/mm3 06/08/21 04:25 Lymphocytes # (Manual) 0.9 K/mm3 (1.2-5.4) L 06/08/21 04:25 Abs React Lymphs (Man) 0.0 K/mm3 06/08/21 04:25 Monocytes # (Manual) 1.3 K/mm3 (0.0-0.8) H 06/08/21 04:25 Eosinophils # (Manual) 0.2 K/mm3 (0.0-0.4) 06/08/21 04:25 Basophils # (Manual) 0.0 K/mm3 (0.0-0.1) 06/08/21 04:25 Metamyelocytes # 0.5 K/mm3 06/08/21 04:25 Myelocytes # 0.3 K/mm3 06/08/21 04:25 Promyelocytes # 0.0 K/mm3 06/08/21 04:25 Blast Cells # 0.0 K/mm3 06/08/21 04:25 WBC Morphology Not Reportable 06/08/21 04:25 Hypersegmented Neuts Not Reportable 06/08/21 04:25 Hyposegmented Neuts Not Reportable 06/08/21 04:25 Hypogranular Neuts Not Reportable 06/08/21 04:25 Smudge Cells Not Reportable 06/08/21 04:25 Toxic Granulation Not Reportable 06/08/21 04:25 Toxic Vacuolation Not Reportable 06/08/21 04:25 Dohle Bodies Not Reportable 06/08/21 04:25 Pelger-Huet Anomaly Not Reportable 06/08/21 04:25 Peter Rods Not Reportable 06/08/21 04:25 Platelet Estimate Consistent w auto 06/08/21 04:25 Clumped Platelets Not Reportable 06/08/21 04:25 Plt Clumps, EDTA Not Reportable 06/08/21 04:25 Large Platelets Not Reportable 06/08/21 04:25 Giant Platelets Not Reportable 06/08/21 04:25 Platelet Satelliting Not Reportable 06/08/21 04:25 Plt Morphology Comment Not Reportable 06/08/21 04:25 RBC Morphology Not Reportable 06/08/21 04:25 Dimorphic RBCs Not Reportable 06/08/21 04:25 Polychromasia Not Reportable 06/08/21 04:25 Hypochromasia Not Reportable 06/08/21 04:25 Poikilocytosis Not Reportable 06/08/21 04:25 Anisocytosis Not Reportable 06/08/21 04:25 Microcytosis Not Reportable 06/08/21 04:25 Macrocytosis Not Reportable 06/08/21 04:25 Spherocytes Not Reportable 06/08/21 04:25 Pappenheimer Bodies Not Reportable 06/08/21 04:25 Sickle Cells Not Reportable 06/08/21 04:25 Target Cells Not Reportable 06/08/21 04:25 Tear Drop Cells Not Reportable 06/08/21 04:25 Ovalocytes Not Reportable 06/08/21 04:25 Helmet Cells Not Reportable 06/08/21 04:25 Toribio-Fox Bodies Not Reportable 06/08/21 04:25 [place] Rings Not Reportable 06/08/21 04:25 [place] Cells Not Reportable 06/08/21 04:25 Bite Cells Not Reportable 06/08/21 04:25 Crenated Cell Not Reportable 06/08/21 04:25 Elliptocytes Not Reportable 06/08/21 04:25 Acanthocytes (Spur) Not Reportable 06/08/21 04:25 Rouleaux Not Reportable 06/08/21 04:25 Hemoglobin C Crystals Not Reportable 06/08/21 04:25 Schistocytes Not Reportable 06/08/21 04:25 Malaria parasites Not Reportable 06/08/21 04:25 Shravan Bodies Not Reportable 06/08/21 04:25 Hem Pathologist Commnt No 06/08/21 04:25 PT 14.5 Sec. (12.2-14.9) 06/16/21 18:51 INR 1.08 (0.87-1.13) 06/16/21 18:51 APTT 64.1 Sec. (24.2-36.6) H* 06/16/21 18:51 D-Dimer > 63253 ng/mlDDU (0-234) H 05/25/21 09:21 Heparin Anti-Xa Level 1.53 U.I./ml (0.3-0.7) H 06/17/21 04:19 ABG pH 7.471 (7.320-7.450) H 06/15/21 10:19 POC ABG pCO2 40.4 mmHg (32.0-48.0) 06/15/21 10:19 ABG pCO2 30.3 mm Hg 05/29/21 05:28 POC ABG pO2 90.1 mmHg (83-108) 06/15/21 10:19 ABG pO2 96.2 mm Hg (80.0-90.0) H 05/29/21 05:28 POC ABG HCO3 28.8 06/15/21 10:19 ABG HCO3 24.0 mmol/L (20.0-26.0) 05/29/21 05:28 ABG O2 Saturation 97.4 (0-100) 06/15/21 10:19 ABG O2 Content 10.3 (0.0-44) 05/29/21 05:28 POC ABG Base Excess 4.8 06/15/21 10:19 ABG Base Excess 1.2 mmol/L (-2.0-3.0) 05/29/21 05:28 ABG Hemoglobin 8.6 (12.0-17.5) L 06/13/21 11:07 ABG Oxyhemoglobin 96.0 (94-98) 06/15/21 10:19 ABG Carboxyhemoglobin 1.6 % (0.0-5.0) 05/29/21 05:28 ABG Methemoglobin 0.3 (0.0-1.5) 06/13/21 11:07 ABG Sodium 144.0 mmol/L (136.0-145.0) 06/13/21 11:07 ABG Potassium 4.7 mmol/L (3.40-4.50) H 06/13/21 11:07 ABG Chloride 107.0 mmol/L (98-107) 06/13/21 11:07 ABG Glucose 277 mg/dL (65-95) H 06/13/21 11:07 Oxyhemoglobin 96.0 % (95.0-99.0) 05/29/21 05:28 Carboxyhemoglobin 1.5 (0.5-1.5) 06/15/21 10:19 FiO2 30 % 05/29/21 05:28 FiO2 % 40 06/15/21 10:19 Sodium 143 mmol/L (137-145) 06/22/21 04:36 Potassium 4.7 mmol/L (3.6-5.0) 06/22/21 04:36 Chloride 104.6 mmol/L (98-107) 06/22/21 04:36 Carbon Dioxide 24 mmol/L (22-30) 06/22/21 04:36 Anion Gap 19 mmol/L 06/22/21 04:36 BUN 36 mg/dL (7-17) H 06/22/21 04:36 Creatinine 1.0 mg/dL (0.6-1.2) 06/22/21 04:36 Estimated GFR > 60 ml/min 06/22/21 04:36 BUN/Creatinine Ratio 36 % 06/22/21 04:36 Glucose 167 mg/dL (65-100) H 06/22/21 04:36 POC Glucose 176 mg/dL (70-105) H 06/22/21 12:12 Lactic Acid 2.30 mmol/L (0.7-2.0) H* 05/26/21 05:49 Calcium 8.5 mg/dL (8.4-10.2) 06/22/21 04:36 Phosphorus 5.40 mg/dL (2.5-4.5) H 06/16/21 04:31 Magnesium 2.40 mg/dL (1.7-2.3) H 06/19/21 06:20 Ferritin 321.6 ng/mL (10.0-200.0) H 05/25/21 09:21 Total Bilirubin 0.20 mg/dL (0.1-1.2) 06/21/21 04:07 Direct Bilirubin < 0.2 mg/dL (0-0.2) 05/25/21 09:21 Indirect Bilirubin 0.2 mg/dL 05/25/21 09:21 AST 79 units/L (5-40) H 06/21/21 04:07 ALT 79 units/L (7-56) H 06/21/21 04:07 Alkaline Phosphatase 159 units/L (35-129) H 06/21/21 04:07 Lactate Dehydrogenase 445 units/L (91-180) H 05/25/21 09:21 Troponin T 0.226 ng/mL (0.00-0.029) H* D 05/25/21 15:19 C-Reactive Protein 28.90 mg/dL (0.00-1.30) H 06/07/21 14:52 NT-Pro-B Natriuret Pep 173.2 pg/mL (0-900) 05/25/21 09: Total Protein 6.5 g/dL (6.3-8.2) 06/21/21 04:07 Albumin 2.6 g/dL (3.9-5) L 06/21/21 04:07 Albumin/Globulin Ratio 0.7 % 06/21/21 04:07 Triglycerides 124 mg/dL (2-149) 05/30/21 11:19 Cholesterol 198 mg/dL (50-199) 05/25/21 15:19 LDL Cholesterol Direct 80 mg/dL (50-130) 05/25/21 15:19 HDL Cholesterol 64 mg/dL (40-59) H 05/25/21 15:19 Cholesterol/HDL Ratio 3.09 % 05/25/21 15:19 Procalcitonin 0.36 ng/mL (<0.15) 06/07/21 14:52 Arterial Blood Glucose 277 mg/dL (65-95) H 06/13/21 11:07 Arterial Blood Ionized Calcium 4.6 mg/dL (4.6-5.3) 06/02/21 04:13 Urine Color Yellow (Yellow) 06/15/21 Unknown Urine Turbidity Slightly-cloudy (Clear) 06/15/21 Unknown Urine pH 6.0 (5.0-7.0) 06/15/21 Unknown Ur Specific Nunez 1.013 (1.003-1.030) 06/15/21 Unknown Urine Protein <15 mg/dl mg/dL (Negative) 06/15/21 Unknown Urine Glucose (UA) Neg mg/dL (Negative) 06/15/21 Unknown Urine Ketones Neg mg/dL (Negative) 06/15/21 Unknown Urine Blood Mod (Negative) 06/15/21 Unknown Urine Nitrite Neg (Negative) 06/15/21 Unknown Ur Reducing Substances Not Reportable 06/15/21 Unknown Urine Bilirubin Neg (Negative) 06/15/21 Unknown Urine Ictotest Not Reportable 06/15/21 Unknown Urine Urobilinogen < 2.0 mg/dL (<2.0) 06/15/21 Unknown Ur Leukocyte Esterase Mod (Negative) 06/15/21 Unknown Urine WBC (Auto) 3.0 /HPF (0.0-6.0) 06/15/21 Unknown Urine RBC (Auto) 3.0 /HPF (0.0-6.0) 06/15/21 Unknown U Epithel Cells (Auto) 2.0 /HPF (0-13.0) 06/15/21 Unknown Urine Bacteria (Auto) 1+ /HPF (Negative) 06/15/21 Unknown Urine Mucus Few /HPF 06/15/21 Unknown Urine Yeast (Budding) Few /HPF 06/15/21 Unknown Urine Osmolality 430 Mosm/kg 06/15/21 Unknown Urine Creatinine 74.7 mg/dL (0.1-20.0) H 06/15/21 Unknown Urine Sodium 14 mmol/L 06/15/21 Unknown Coronavirus (PCR) Negative (Negative) 05/30/21 08:15 Blood Type O POSITIVE 06/15/21 08:00 Antibody Screen Negative 06/15/21 08:00 Tan/IV: Voiding Method External Female Catheter Active Medications - Current Medications Current Medications: Generic Name Dose Route Start Last Admin Trade Name Freq PRN Reason Stop Dose Admin Acetaminophen 650 mg 05/25/21 13:48 05/28/21 04:14 Acetaminophen 325 Mg Tab PO 650 mg Q6H PRN Administration Pain MILD(1-3)/Fever >100.5/SOTOMAYOR Acetylcysteine 200 mg 06/20/21 16:00 06/22/21 08:27 Acetylcysteine 20% 200 Mg/1 Ml *For Inhalation Use* INHALATION 06/25/21 15:59 Not Given Q8HRT ABDIRAHMAN Lipase/Protease/Amylase 1 each 05/26/21 10:00 Lipase 10,500/Protease 25,000/Amylase 43,750 (Units) Dr Munguia FEEDTUBE PRN PRN For Clogged Feeding Tube Apixaban 5 mg 06/16/21 22:00 06/22/21 09:49 Apixaban 5 Mg Tab PO 5 mg Q12HR ABDIRAHMAN Administration Protocol Bisacodyl 10 mg 06/08/21 10:00 Bisacodyl 10 Mg Rect Supp [place] QDAY PRN Constipation Dextrose 50 ml 05/28/21 14:28 Dextrose 50% In Water (25gm) 50 Ml Syringe IV Q30MIN PRN Hypoglycemia Protocol Docusate Sodium 100 mg 06/08/21 10:00 06/22/21 09:48 Docusate Sodium 100 Mg/10 Ml Oral Liqd PO 100 mg BID ABDIRAHMAN Administration Doxazosin Mesylate 2 mg 06/01/21 12:00 06/22/21 09:49 Doxazosin 1 Mg Tab PO 2 mg BID ABDIRAHMAN Administration Famotidine 20 mg 05/29/21 10:00 06/22/21 09:49 Famotidine 20 Mg Tab FEEDTUBE 20 mg BID ABDIRAHMAN Administration Glycopyrrolate 2 mg 06/22/21 22:00 Glycopyrrolate 2 Mg Tab PO Q8HR ABDIRAHMAN Hydralazine HCl 10 mg 06/01/21 11:43 06/07/21 17:23 Hydralazine 20 Mg/1 Ml Inj IV 10 mg Q4HR PRN Administration SBP >160 Hydralazine HCl 50 mg 06/03/21 22:00 06/22/21 14:18 Hydralazine 25 Mg Tab PO 50 mg Q8HR ABDIRAHMAN Administration Hydrophilic Ointment 1 applic 05/25/21 19:04 Lip Therapy Vaseline TP Q2HR PRN Dry Lips Ceftriaxone Sodium 2 gm in 100 mls @ 200 mls/hr 06/20/21 10:00 06/21/21 10:51 Rocephin/Ns 2 Gm/100 Ml IV 06/23/21 10:29 200 mls/hr Q24H ABDIRAHMAN Administration Protocol Insulin Glargine 30 units 06/15/21 22:00 06/21/21 23:11 Insulin Glargine 100 Units/Ml SUB-Q Not Given QHS [facility] Insulin Human Lispro 0 unit 05/29/21 12:00 06/22/21 14:23 Insulin Lispro 100 Unit/Ml SUB-Q 3 unit Q6HR ABDIRAHMAN Administration Protocol Labetalol HCl 300 mg 06/03/21 13:40 06/22/21 09:49 Labetalol 100 Mg Tab PO 300 mg BID ABDIRAHMAN Administration Levetiracetam 250 mg 06/01/21 22:00 06/22/21 09:48 Levetiracetam 500 Mg/5 Ml Oral Liqd FEEDTUBE 250 mg Q12HR ABDIRAHMAN Administration Metoclopramide HCl 5 mg 06/22/21 22:00 Metoclopramide 10 Mg/2 Ml Inj IV Q8HR [facility] Multi-Ingred Cream/Lotion/Oil/Oint 1 applic 05/25/21 19:04 Mineral Oil/Petrolatum, White Ophth Oint 3.5 Gm OU Q4HR PRN Dry Eye(s) Polyethylene Glycol 17 gm 06/05/21 11:00 06/22/21 09:50 Polyethylene Glycol 3350 17 Gm Powder PO 17 gm QDAY ABDIRAHMAN Administration Scopolamine 1 each 06/20/21 10:00 06/20/21 09:48 Scopolamine Transdermal Patch 72 Hr TD 1 each Q3D ABDIRAHMAN Administration Senna/Docusate Sodium 1 tab 05/25/21 22:00 06/22/21 09:50 Sennosides/Docusate Sodium 8.6/50 Mg Tab FEEDTUBE 1 tab BID ABDIRAHMAN Administration Simple Syrup 15 ml 05/26/21 10:00 Simple Syrup 15 Ml FEEDTUBE PRN PRN Hypoglycemia Simple Syrup 30 ml 05/26/21 10:00 Simple Syrup 15 Ml FEEDTUBE PRN PRN Hypoglycemia Sodium Bicarbonate 325 mg 05/26/21 10:00 Sodium Bicarbonate 325 Mg Tab FEEDTUBE PRN PRN For Clogged Feeding Tube Sodium Chloride 10 ml 05/25/21 22:00 06/22/21 14:15 Sodium Chloride 0.9% 10 Ml Flush Syringe IV 10 ml BID ABDIRAHMAN Administration Sodium Chloride 10 ml 05/25/21 13:48 06/04/21 03:57 Sodium Chloride 0.9% 10 Ml Flush Syringe IV 10 ml PRN PRN Administration LINE FLUSH Valsartan 160 mg 06/11/21 10:00 06/22/21 09:50 Valsartan 160mg Tab PO 160 mg BID ABDIRAHMAN Administration Nutrition/Malnutrition Assess - Dietary Evaluation Nutrition/Malnutrition Findings: Nutrition Notes Start: 05/26/21 09:00 Freq: Status: Active Protocol: Document 06/19/21 15:49 GB (Rec: 06/19/21 15:57 GB [id number]) Nutrition Notes Initial or Follow up Reassessment Current Diagnosis COPD,Diabetes,Sepsis, Hypertension,Respiratory Failure Other Pertinent Diagnosis cardiac arrest, seizure disorder, (06/12: Trach/PEG) Current Diet NPO, Tube feeding glucerna 1.2 @50 Labs/Tests 06/19: Na 148, BUN 26, glucose 109, Mg 2.4 Pertinent Medications reviewed Height 5 ft 4 in Weight 63 kg Childs Body Weight (kg) 54.54 BMI 23.8 Weight change and time frame -6.6% since admission No new weights after 05/30 Weight Status Appropriate Subjective/Other Information 06/12: Trach/PEG 06/12: TF formula changed to glucerna 1.2 r/t altered labs and now with trach/peg Last 06/17 06/19: waiting for placement SNF vs Home w/home health depending on T-piece tolerance Percent of energy/protein needs met: TF goal rate meets 75% or greater of estimated energy needs Burn Absent Trauma Absent GI Symptoms None Difficulty In Swallowing Food Allergy No Current % PO Other Minimum of two criteria No #1 Nutrition Diagnosis Inadequate oral intake Comments: 06/02: On vent. TF continues. 06/07: Ventilation continues, TF continues. 06/13: Trach/PEG on 06/12, change formula to glucerna 1.2 06/19: T/P continues, TF glucerna 1.2 @50ml/hr Etiology ARF As Evidenced by Signs and Symptoms pt on vent and unable to consume PO Diagnosis Progress(for reassessment Continues documentation) Is patient on ventilator? Yes Is Patient Ambulatory and/or Out of Bed No REE-([place]-confined to bed) 1385.676 Kcal/Kg value to use for calculation 23 Approximate Energy Requirements Using 1449 kcal/Kg Calculation Used for Recommendations Kcal/kg Additional Notes Protein: (1-1.5g/kg @63kg) 63- 95g Fluid: 1 ml/kcal or per MD Nutrition Intervention Change Diet Order: Continue NPO Nutrition Support: Glucerna 1.2 at 50 ml/hr Flush 75 ml q4h 06/07: continues 06/13: Trach/PEG on 06/12, change formula to glucerna 1.2 06/19: Glucerna 1.2 at 50ml/hr continues Kcal 1,440 Protein (gm) 72 Goal #1 Meet 75% or greater of protein and energy needs via TF 06/13: TF at goal meets 100% estimated energy needs: met, continues 06/19: met continues Goal #2 Change TF formula. Complete current vital 1.2 bottle, change to glucerna 1.2 r/t DM and related lab results 06/19: met, resolved Follow-Up By: 06/26/21 Additional Comments f/u: TF tolerance, new weights available <KASHIF MOORE R - Last Filed: 06/24/21 09:01> Assessment and Plan Assessment and plan: I saw and evaluated the patienton . I agree with the findings and the plan of care as documented in the Nurse Practitioner's~note, Hospitalist Physical - Constitutional Vitals: Temp Pulse Resp BP Pulse Ox 97.4 F L 81 16 134/60 100 06/24/21 08:40 06/24/21 08:40 06/24/21 08:40 06/24/21 08:40 06/24/21 08:40 HEART Score - HEART Score Troponin: Troponin T 0.226 ng/mL (0.00-0.029) H* D 05/25/21 15:19 Results - Labs CBC & Chem 7: 06/24/21 04:40 06/24/21 04:40 Labs: Laboratory Last Values WBC 9.7 K/mm3 (4.5-11.0) 06/24/21 04:40 RBC 2.07 M/mm3 (3.65-5.03) L 06/24/21 04:40 Hgb 7.1 gm/dl (10.1-14.3) L 06/24/21 04:40 Hct 20.4 % (30.3-42.9) L 06/24/21 04:40 MCV 99 fl (79-97) H 06/24/21 04:40 MCH 34 pg (28-32) H 06/24/21 04:40 MCHC 35 % (30-34) H 06/24/21 04:40 RDW 14.7 % (13.2-15.2) 06/24/21 04:40 Plt Count 412 K/mm3 (140-440) 06/24/21 04:40 Lymph % (Auto) 18.7 % (13.4-35.0) 06/21/21 08:10 Miner % (Auto) 9.3 % (0.0-7.3) H 06/21/21 08:10 Eos % (Auto) 2.0 % (0.0-4.3) 06/21/21 08:10 Baso % (Auto) 0.3 % (0.0-1.8) 06/21/21 08:10 Lymph # (Auto) 1.9 K/mm3 (1.2-5.4) 06/21/21 08:10 Miner # (Auto) 0.9 K/mm3 (0.0-0.8) H 06/21/21 08:10 Eos # (Auto) 0.2 K/mm3 (0.0-0.4) 06/21/21 08:10 Baso # (Auto) 0.0 K/mm3 (0.0-0.1) 06/21/21 08:10 Add Manual Diff Complete 06/08/21 04:25 Total Counted 100 06/08/21 04:25 Seg Neutrophils % 69.7 % (40.0-70.0) 06/21/21 08:10 Seg Neuts % (Manual) 76.0 % (40.0-70.0) H 06/08/21 04:25 Band Neutrophils % 4.0 % 06/08/21 04:25 Lymphocytes % (Manual) 6.0 % (13.4-35.0) L 06/08/21 04:25 Monocytes % (Manual) 8.0 % (0.0-7.3) H 06/08/21 04:25 Eosinophils % (Manual) 1.0 % (0.0-4.3) 06/08/21 04:25 Metamyelocytes % 3.0 % 06/08/21 04:25 Myelocytes % 2.0 % 06/08/21 04:25 Nucleated RBC % Not Reportable 06/08/21 04:25 Seg Neutrophils # 7.0 K/mm3 (1.8-7.7) 06/21/21 08:10 Seg Neutrophils # Man 12.0 K/mm3 (1.8-7.7) H 06/08/21 04:25 Band Neutrophils # 0.6 K/mm3 06/08/21 04:25 Lymphocytes # (Manual) 0.9 K/mm3 (1.2-5.4) L 06/08/21 04:25 Abs React Lymphs (Man) 0.0 K/mm3 06/08/21 04:25 Monocytes # (Manual) 1.3 K/mm3 (0.0-0.8) H 06/08/21 04:25 Eosinophils # (Manual) 0.2 K/mm3 (0.0-0.4) 06/08/21 04:25 Basophils # (Manual) 0.0 K/mm3 (0.0-0.1) 06/08/21 04:25 Metamyelocytes # 0.5 K/mm3 06/08/21 04:25 Myelocytes # 0.3 K/mm3 06/08/21 04:25 Promyelocytes # 0.0 K/mm3 06/08/21 04:25 Blast Cells # 0.0 K/mm3 06/08/21 04:25 WBC Morphology Not Reportable 06/08/21 04:25 Hypersegmented Neuts Not Reportable 06/08/21 04:25 Hyposegmented Neuts Not Reportable 06/08/21 04:25 Hypogranular Neuts Not Reportable 06/08/21 04:25 Smudge Cells Not Reportable 06/08/21 04:25 Toxic Granulation Not Reportable 06/08/21 04:25 Toxic Vacuolation Not Reportable 06/08/21 04:25 Dohle Bodies Not Reportable 06/08/21 04:25 Pelger-Huet Anomaly Not Reportable 06/08/21 04:25 Peter Rods Not Reportable 06/08/21 04:25 Platelet Estimate Consistent w auto 06/08/21 04:25 Clumped Platelets Not Reportable 06/08/21 04:25 Plt Clumps, EDTA Not Reportable 06/08/21 04:25 Large Platelets Not Reportable 06/08/21 04:25 Giant Platelets Not Reportable 06/08/21 04:25 Platelet Satelliting Not Reportable 06/08/21 04:25 Plt Morphology Comment Not Reportable 06/08/21 04:25 RBC Morphology Not Reportable 06/08/21 04:25 Dimorphic RBCs Not Reportable 06/08/21 04:25 Polychromasia Not Reportable 06/08/21 04:25 Hypochromasia Not Reportable 06/08/21 04:25 Poikilocytosis Not Reportable 06/08/21 04:25 Anisocytosis Not Reportable 06/08/21 04:25 Microcytosis Not Reportable 06/08/21 04:25 Macrocytosis Not Reportable 06/08/21 04:25 Spherocytes Not Reportable 06/08/21 04:25 Pappenheimer Bodies Not Reportable 06/08/21 04:25 Sickle Cells Not Reportable 06/08/21 04:25 Target Cells Not Reportable 06/08/21 04:25 Tear Drop Cells Not Reportable 06/08/21 04:25 Ovalocytes Not Reportable 06/08/21 04:25 Helmet Cells Not Reportable 06/08/21 04:25 Toribio-Fox Bodies Not Reportable 06/08/21 04:25 [place] Rings Not Reportable 06/08/21 04:25 [place] Cells Not Reportable 06/08/21 04:25 Bite Cells Not Reportable 06/08/21 04:25 Crenated Cell Not Reportable 06/08/21 04:25 Elliptocytes Not Reportable 06/08/21 04:25 Acanthocytes (Spur) Not Reportable 06/08/21 04:25 Rouleaux Not Reportable 06/08/21 04:25 Hemoglobin C Crystals Not Reportable 06/08/21 04:25 Schistocytes Not Reportable 06/08/21 04:25 Malaria parasites Not Reportable 06/08/21 04:25 Shravan Bodies Not Reportable 06/08/21 04:25 Hem Pathologist Commnt No 06/08/21 04:25 PT 14.5 Sec. (12.2-14.9) 06/16/21 18:51 INR 1.08 (0.87-1.13) 06/16/21 18:51 APTT 64.1 Sec. (24.2-36.6) H* 06/16/21 18:51 D-Dimer > 32745 ng/mlDDU (0-234) H 05/25/21 09:21 Heparin Anti-Xa Level 1.53 U.I./ml (0.3-0.7) H 06/17/21 04:19 ABG pH 7.484 (7.320-7.450) H 06/23/21 10:50 POC ABG pCO2 39.0 mmHg (32.0-48.0) 06/23/21 10:50 ABG pCO2 30.3 mm Hg 05/29/21 05:28 POC ABG pO2 96.2 mmHg (83-108) 06/23/21 10:50 ABG pO2 96.2 mm Hg (80.0-90.0) H 05/29/21 05:28 POC ABG HCO3 28.7 06/23/21 10:50 ABG HCO3 24.0 mmol/L (20.0-26.0) 05/29/21 05:28 ABG O2 Saturation 97.5 (0-100) 06/23/21 10:50 ABG O2 Content 10.3 (0.0-44) 05/29/21 05:28 POC ABG Base Excess 4.8 06/23/21 10:50 ABG Base Excess 1.2 mmol/L (-2.0-3.0) 05/29/21 05:28 ABG Hemoglobin 7.1 (12.0-17.5) L 06/23/21 10:50 ABG Oxyhemoglobin 96 (94-98) 06/23/21 10:50 ABG Carboxyhemoglobin 1.6 % (0.0-5.0) 05/29/21 05:28 ABG Methemoglobin 0.3 (0.0-1.5) 06/23/21 10:50 ABG Sodium 141.4 mmol/L (136.0-145.0) 06/23/21 10:50 ABG Potassium 4.6 mmol/L (3.40-4.50) H 06/23/21 10:50 ABG Chloride 106.0 mmol/L (98-107) 06/23/21 10:50 ABG Glucose 158 mg/dL (65-95) H 06/23/21 10:50 Oxyhemoglobin 96.0 % (95.0-99.0) 05/29/21 05:28 Carboxyhemoglobin 1.2 (0.5-1.5) 06/23/21 10:50 FiO2 30 % 05/29/21 05:28 FiO2 % 28 06/23/21 10:50 Sodium 145 mmol/L (137-145) 06/24/21 04:40 Potassium 4.8 mmol/L (3.6-5.0) 06/24/21 04:40 Chloride 104.6 mmol/L (98-107) 06/24/21 04:40 Carbon Dioxide 26 mmol/L (22-30) 06/24/21 04:40 Anion Gap 19 mmol/L 06/24/21 04:40 BUN 45 mg/dL (7-17) H 06/24/21 04:40 Creatinine 1.2 mg/dL (0.6-1.2) 06/24/21 04:40 Estimated GFR 54 ml/min 06/24/21 04:40 BUN/Creatinine Ratio 38 % 06/24/21 04:40 Glucose 229 mg/dL (65-100) H 06/24/21 04:40 POC Glucose 192 mg/dL (70-105) H 06/24/21 05:21 Lactic Acid 2.30 mmol/L (0.7-2.0) H* 05/26/21 05:49 Calcium 8.6 mg/dL (8.4-10.2) 06/24/21 04:40 Phosphorus 5.40 mg/dL (2.5-4.5) H 06/16/21 04:31 Magnesium 2.40 mg/dL (1.7-2.3) H 06/19/21 06:20 Ferritin 321.6 ng/mL (10.0-200.0) H 05/25/21 09:21 Total Bilirubin 0.20 mg/dL (0.1-1.2) 06/24/21 04:40 Direct Bilirubin < 0.2 mg/dL (0-0.2) 05/25/21 09:21 Indirect Bilirubin 0.2 mg/dL 05/25/21 09:21 AST 83 units/L (5-40) H 06/24/21 04:40 ALT 80 units/L (7-56) H 06/24/21 04:40 Alkaline Phosphatase 142 units/L (35-129) H 06/24/21 04:40 Lactate Dehydrogenase 445 units/L (91-180) H 05/25/21 09:21 Troponin T 0.226 ng/mL (0.00-0.029) H* D 05/25/21 15:19 C-Reactive Protein 28.90 mg/dL (0.00-1.30) H 06/07/21 14:52 NT-Pro-B Natriuret Pep 173.2 pg/mL (0-900) 05/25/21 09: Total Protein 7.0 g/dL (6.3-8.2) 06/24/21 04:40 Albumin 2.8 g/dL (3.9-5) L 06/24/21 04:40 Albumin/Globulin Ratio 0.7 % 06/24/21 04:40 Triglycerides 124 mg/dL (2-149) 05/30/21 11:19 Cholesterol 198 mg/dL (50-199) 05/25/21 15:19 LDL Cholesterol Direct 80 mg/dL (50-130) 05/25/21 15:19 HDL Cholesterol 64 mg/dL (40-59) H 05/25/21 15:19 Cholesterol/HDL Ratio 3.09 % 05/25/21 15:19 Procalcitonin 0.36 ng/mL (<0.15) 06/07/21 14:52 Arterial Blood Glucose 158 mg/dL (65-95) H 06/23/21 10:50 Arterial Blood Ionized Calcium 4.3 mg/dL (4.6-5.3) L 06/23/21 10:50 Urine Color Yellow (Yellow) 06/15/21 Unknown Urine Turbidity Slightly-cloudy (Clear) 06/15/21 Unknown Urine pH 6.0 (5.0-7.0) 06/15/21 Unknown Ur Specific Nunez 1.013 (1.003-1.030) 06/15/21 Unknown Urine Protein <15 mg/dl mg/dL (Negative) 06/15/21 Unknown Urine Glucose (UA) Neg mg/dL (Negative) 06/15/21 Unknown Urine Ketones Neg mg/dL (Negative) 06/15/21 Unknown Urine Blood Mod (Negative) 06/15/21 Unknown Urine Nitrite Neg (Negative) 06/15/21 Unknown Ur Reducing Substances Not Reportable 06/15/21 Unknown Urine Bilirubin Neg (Negative) 06/15/21 Unknown Urine Ictotest Not Reportable 06/15/21 Unknown Urine Urobilinogen < 2.0 mg/dL (<2.0) 06/15/21 Unknown Ur Leukocyte Esterase Mod (Negative) 06/15/21 Unknown Urine WBC (Auto) 3.0 /HPF (0.0-6.0) 06/15/21 Unknown Urine RBC (Auto) 3.0 /HPF (0.0-6.0) 06/15/21 Unknown U Epithel Cells (Auto) 2.0 /HPF (0-13.0) 06/15/21 Unknown Urine Bacteria (Auto) 1+ /HPF (Negative) 06/15/21 Unknown Urine Mucus Few /HPF 06/15/21 Unknown Urine Yeast (Budding) Few /HPF 06/15/21 Unknown Urine Osmolality 430 Mosm/kg 06/15/21 Unknown Urine Creatinine 74.7 mg/dL (0.1-20.0) H 06/15/21 Unknown Urine Sodium 14 mmol/L 06/15/21 Unknown Coronavirus (PCR) Negative (Negative) 05/30/21 08:15 Blood Type O POSITIVE 06/15/21 08:00 Antibody Screen Negative 06/15/21 08:00 Tan/IV: Voiding Method Incontinent Active Medications - Current Medications Current Medications: Generic Name Dose Route Start Last Admin Trade Name Freq PRN Reason Stop Dose Admin Acetaminophen 650 mg 05/25/21 13:48 05/28/21 04:14 Acetaminophen 325 Mg Tab PO 650 mg Q6H PRN Administration Pain MILD(1-3)/Fever >100.5/SOTOMAYOR Acetylcysteine 200 mg 06/20/21 16:00 06/24/21 00:55 Acetylcysteine 20% 200 Mg/1 Ml *For Inhalation Use* INHALATION 06/25/21 15:59 Not Given Q8HRT ABDIRAHMAN Lipase/Protease/Amylase 1 each 05/26/21 10:00 Lipase 10,500/Protease 25,000/Amylase 43,750 (Units) Dr Munguia FEEDTUBE PRN PRN For Clogged Feeding Tube Apixaban 5 mg 06/16/21 22:00 06/23/21 23:06 Apixaban 5 Mg Tab PO 5 mg Q12HR ABDIRAHMAN Administration Protocol Bisacodyl 10 mg 06/08/21 10:00 Bisacodyl 10 Mg Rect Supp [place] QDAY PRN Constipation Dextrose 50 ml 05/28/21 14:28 Dextrose 50% In Water (25gm) 50 Ml Syringe IV Q30MIN PRN Hypoglycemia Protocol Docusate Sodium 100 mg 06/08/21 10:00 06/24/21 01:12 Docusate Sodium 100 Mg/10 Ml Oral Liqd PO Not Given BID [facility] Doxazosin Mesylate 2 mg 06/01/21 12:00 06/23/21 23:05 Doxazosin 1 Mg Tab PO 2 mg BID ABDIRAHMAN Administration Famotidine 20 mg 05/29/21 10:00 06/23/21 23:05 Famotidine 20 Mg Tab FEEDTUBE 20 mg BID ABDIRAHMAN Administration Glycopyrrolate 2 mg 06/22/21 22:00 06/24/21 06:36 Glycopyrrolate 2 Mg Tab PO Not Given Q8HR [facility] Hydralazine HCl 10 mg 06/01/21 11:43 06/07/21 17:23 Hydralazine 20 Mg/1 Ml Inj IV 10 mg Q4HR PRN Administration SBP >160 Hydralazine HCl 50 mg 06/03/21 22:00 06/24/21 06:22 Hydralazine 25 Mg Tab PO 50 mg Q8HR [facility] Administration Hydrophilic Ointment 1 applic 05/25/21 19:04 Lip Therapy Vaseline TP Q2HR PRN Dry Lips Insulin Glargine 30 units 06/15/21 22:00 06/24/21 01:13 Insulin Glargine 100 Units/Ml SUB-Q Not Given QHS [facility] Insulin Human Lispro 0 unit 05/29/21 12:00 06/24/21 06:38 Insulin Lispro 100 Unit/Ml SUB-Q 1 unit Q6HR ABDIRAHMAN Administration Protocol Labetalol HCl 300 mg 06/03/21 13:40 06/23/21 23:09 Labetalol 100 Mg Tab PO 300 mg BID ABDIRAHMAN Administration Levetiracetam 250 mg 06/01/21 22:00 06/23/21 23:05 Levetiracetam 500 Mg/5 Ml Oral Liqd FEEDTUBE 250 mg Q12HR ABDIRAHMAN Administration Metoclopramide HCl 5 mg 06/22/21 22:00 06/24/21 06:22 Metoclopramide 10 Mg/2 Ml Inj IV 5 mg Q8HR ABDIRAHMAN Administration Multi-Ingred Cream/Lotion/Oil/Oint 1 applic 05/25/21 19:04 Mineral Oil/Petrolatum, White Ophth Oint 3.5 Gm OU Q4HR PRN Dry Eye(s) Polyethylene Glycol 17 gm 06/05/21 11:00 06/23/21 09:30 Polyethylene Glycol 3350 17 Gm Powder PO 17 gm QDAY ABDIRAHMAN Administration Scopolamine 1 each 06/20/21 10:00 06/23/21 09:32 Scopolamine Transdermal Patch 72 Hr TD 1 each Q3D ABDIRAHMAN Administration Senna/Docusate Sodium 1 tab 05/25/21 22:00 06/24/21 01:12 Sennosides/Docusate Sodium 8.6/50 Mg Tab FEEDTUBE Not Given BID ABDIRAHMAN Simple Syrup 15 ml 05/26/21 10:00 Simple Syrup 15 Ml FEEDTUBE PRN PRN Hypoglycemia Simple Syrup 30 ml 05/26/21 10:00 Simple Syrup 15 Ml FEEDTUBE PRN PRN Hypoglycemia Sodium Bicarbonate 325 mg 05/26/21 10:00 Sodium Bicarbonate 325 Mg Tab FEEDTUBE PRN PRN For Clogged Feeding Tube Sodium Chloride 10 ml 05/25/21 22:00 06/24/21 01:21 Sodium Chloride 0.9% 10 Ml Flush Syringe IV 10 ml BID ABDIRAHMAN Administration Sodium Chloride 10 ml 05/25/21 13:48 06/04/21 03:57 Sodium Chloride 0.9% 10 Ml Flush Syringe IV 10 ml PRN PRN Administration LINE FLUSH Valsartan 160 mg 06/11/21 10:00 06/23/21 23:06 Valsartan 160mg Tab PO 160 mg BID ABDIRAHMAN Administration Nutrition/Malnutrition Assess - Dietary Evaluation Nutrition/Malnutrition Findings: Nutrition Notes Start: 05/26/21 09:00 Freq: Status: Active Protocol: Document 06/19/21 15:49 GB (Rec: 06/19/21 15:57 GB [id number]) Nutrition Notes Initial or Follow up Reassessment Current Diagnosis COPD,Diabetes,Sepsis, Hypertension,Respiratory Failure Other Pertinent Diagnosis cardiac arrest, seizure disorder, (06/12: Trach/PEG) Current Diet NPO, Tube feeding glucerna 1.2 @50 Labs/Tests 06/19: Na 148, BUN 26, glucose 109, Mg 2.4 Pertinent Medications reviewed Height 5 ft 4 in Weight 63 kg Childs Body Weight (kg) 54.54 BMI 23.8 Weight change and time frame -6.6% since admission No new weights after 05/30 Weight Status Appropriate Subjective/Other Information 06/12: Trach/PEG 06/12: TF formula changed to glucerna 1.2 r/t altered labs and now with trach/peg Last BM 06/17 06/19: waiting for placement SNF vs Home w/home health depending on T-piece tolerance Percent of energy/protein needs met: TF goal rate meets 75% or greater of estimated energy needs Burn Absent Trauma Absent GI Symptoms None Difficulty In Swallowing Food Allergy No Current % PO Other Minimum of two criteria No #1 Nutrition Diagnosis Inadequate oral intake Comments: 06/02: On vent. TF continues. 06/07: Ventilation continues, TF continues. 06/13: Trach/PEG on 06/12, change formula to glucerna 1.2 06/19: T/P continues, TF glucerna 1.2 @50ml/hr Etiology ARF As Evidenced by Signs and Symptoms pt on vent and unable to consume PO Diagnosis Progress(for reassessment Continues documentation) Is patient on ventilator? Yes Is Patient Ambulatory and/or Out of Bed No REE-([facility]-confined to bed) 1385.676 Kcal/Kg value to use for calculation 23 Approximate Energy Requirements Using 1449 kcal/Kg Calculation Used for Recommendations Kcal/kg Additional Notes Protein: (1-1.5g/kg @63kg) 63- 95g Fluid: 1 ml/kcal or per MD Nutrition Intervention Change Diet Order: Continue NPO Nutrition Support: Glucerna 1.2 at 50 ml/hr Flush 75 ml q4h 06/07: continues 06/13: Trach/PEG on 06/12, change formula to glucerna 1.2 06/19: Glucerna 1.2 at 50ml/hr continues Kcal 1,440 Protein (gm) 72 Goal #1 Meet 75% or greater of protein and energy needs via TF 06/13: TF at goal meets 100% estimated energy needs: met, continues 06/19: met continues Goal #2 Change TF formula. Complete current vital 1.2 bottle, change to glucerna 1.2 r/t DM and related lab results 06/19: met, resolved Follow-Up By: 06/26/21 Additional Comments f/u: TF tolerance, new weights available
[2021-06-22] MEDS: cefTRIAXone/NS 2 GM/100 ML 2 GM/100 ML BAG IV SCH (18:03)
[2021-06-22] MEDS: GLYCOPYRROLATE 2 MG TAB PO SCH (21:24)
[2021-06-22] MEDS: INSULIN GLARGINE 100 UNITS/ML SUB-Q SCH (21:31)
[2021-06-22] MEDS: METOCLOPRAMIDE 10 MG/2 ML INJ IV SCH (21:43)
[2021-06-23] MEDS: ACETYLCYSTEINE 20% 200 MG/1 ML *FOR INHALATION USE INHALATION SCH ×3 (02:20→16:25)
[2021-06-23 05:05] LABS: Hematocrit 22.4 % (30.3-42.9); Hemoglobin 7.5 gm/dl (10.1-14.3); Mean Corpuscular HGB Conc 33 % (30-34); Mean Corpuscular Volume 101 fl (79-97); Platelet Count 380 K/mm3 (140-440); Red Blood Count 2.22 M/mm3 (3.65-5.03); Red Cell Distribution Width 14.7 % (13.2-15.2)
[2021-06-23 05:24] LABS: Calcium 8.5 mg/dL (8.4-10.2)
[2021-06-23] MEDS: hydrALAZINE 25 MG TAB PO SCH ×3 (05:55→23:05)
[2021-06-23] MEDS: METOCLOPRAMIDE 10 MG/2 ML INJ IV SCH ×3 (05:55→23:06)
[2021-06-23] MEDS: GLYCOPYRROLATE 2 MG TAB PO SCH ×3 (05:55→23:05)
[2021-06-23] MEDS: INSULIN LISPRO 100 UNIT/ML SUB-Q SCH ×4 (06:03→18:08)
[2021-06-23] MEDS: levETIRAcetam 500 MG/5 ML ORAL LIQD FEEDTUBE SCH ×3 (09:30→23:05)
[2021-06-23] MEDS: SENNOSIDES/DOCUSATE SODIUM 8.6/50 MG TAB FEEDTUBE SCH (09:30)
[2021-06-23] MEDS: DOXAZOSIN 1 MG TAB PO SCH ×2 (09:30→23:05)
[2021-06-23] MEDS: DOCUSATE SODIUM 100 MG/10 ML ORAL LIQD PO SCH (09:30)
[2021-06-23] MEDS: POLYETHYLENE GLYCOL 3350 17 GM POWDER PO SCH (09:30)
[2021-06-23] MEDS: cefTRIAXone/NS 2 GM/100 ML 2 GM/100 ML BAG IV SCH (09:31)
[2021-06-23] MEDS: APIXABAN 5 MG TAB PO SCH ×2 (09:31→23:06)
[2021-06-23] MEDS: FAMOTIDINE 20 MG TAB FEEDTUBE SCH ×2 (09:31→23:05)
[2021-06-23] MEDS: VALSARTAN 160MG TAB PO SCH ×2 (09:31→23:06)
[2021-06-23] MEDS: SCOPOLAMINE TRANSDERMAL PATCH 72 HR TD SCH (09:32)
[2021-06-23] MEDS: FREE WATER PO SCH ×4 (10:10→22:25)
--- NOTE | 2021-06-23 12:22 | Progress Note ---
Assessment and Plan Acute hypoxemic respiratory failure s/p trach to ATP s/p Cardiopulmonary arrest wtih ROSC h/o Seizure disorder Sepsis Toxic metabolic encephalopathy, possible anoxia Atrial fibrillation with RVR Metabolic acidosis Bilateral lower lobe infiltrates on imaging Hyperkalemia - continue to titrate supplemental oxygen to keep SpO2 88-90% - Aspiration precautions HOB >30 -trach car, airway clearance, secretion management - continue bronchodilators (MARY & LABA) with pulmonary hygiene per RT -Accuchecks with glycemic control per SSI (While critically ill target blood glucose of 140-180 mg/dL; avoid hypoglycemia) -Enteric nutritional support at goal - Maintenance of sleep-wake cycle, avoid delirium - Stress ulcer prophylaxis- Famotidine - Continue VTE prophylaxis, on therapeutic anticoagulation - mobility, off loading, frequent turning per facility protocol for pressure ulcer prevention - Monitor hemodynamics closely -Kayexalate for hyperkalemia -OK to transfer telemetry - continue other care per attending / other consultants -Discharge planning COVID SPECIFIC INTERVENTIONS -Negative CONDITION: FAIR PROGNOSIS: POOR RUBBER PROCESS HAND CODE STATUS: FULL CODE Subjective Date of service: 06/23/21 Principal diagnosis: Ac hypoxemic resp failure; Cardiac arrest; Seizures; Sepsis; AMS; A-Fib RVR Interval history: Summary per medical records. Information verified at the bedside with her son 65 YO Female with HTN, NH, CAD S/P Stent Placement, Nicotine Dependence, DM, HLD, Seizure Disorder presents to ED for evaluation. Patient is intubated and ambulatory support at the time my evaluation is unable to provide history. Patient agitated when EMS staff, ED staff, as well as the patient's son who was made available by telephone for interview. As per son the patient was in her usual state of health on the day prior to admission. 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 Patient son reports that patient began hyperventilating and screaming "help me, help me. EMS was notified and upon arrival the patient was found to be in distress and subsequently lost consciousness and was found to have asystole on short order cook. Patient was treated" with ACLS protocol with return of perfusing cardiac rhythm. The patient was transported to [facility] for further care and evaluation of the aforementioned symptoms. The patient was seen and evaluated in the emergency department and shortly upon arrival to the emergency department the patient experienced repeated asystole. Patient was again treated" with ACLS protocol with eventual return of perfusing cardiac rhythm. Patient was found to have acute hypoxemic respiratory failure and was unable to protect her airway and was subsequently intubated while in the emergency department. The patient was also found to have atrial fibrillation with rapid ventricular response, metabolic acidosis, sepsis, toxic metabolic encephalopathy and suspected anoxic brain injury. Patient admitted to ICU and initiated on sepsis protocol. Follow up for: acute hypoxemic resp failure; s/p cardiopulmonary arrest with ROSC; Seizure disorder Patient seen and examined. Vitals, labs, medications, chart reviewed. No fevers, no vomiting. Discussed with nursing and resp staff in interdisciplinary rounds She is s/p trach and has been off MVS overnight Mental status changes persist Objective Vital Signs - 12hr 06/23/21 06/23/21 06/23/21 00:31 01:00 01:31 Temperature Pulse Rate 84 84 81 Pulse Rate [ From Monitor] Respiratory 28 H 16 21 Rate Blood Pressure 154/64 144/78 144/78 O2 Sat by Pulse 100 99 99 Oximetry O2 Sat by Pulse Oximetry [ Assessment] 06/23/21 06/23/21 06/23/21 02:00 02:31 03:00 Temperature Pulse Rate 87 83 86 Pulse Rate [ From Monitor] Respiratory 27 H 22 23 Rate Blood Pressure 140/75 144/78 145/68 O2 Sat by Pulse 100 99 100 Oximetry O2 Sat by Pulse Oximetry [ Assessment] 06/23/21 06/23/21 06/23/21 03:31 03:33 04:00 Temperature 99.5 F Pulse Rate 84 82 Pulse Rate [ From Monitor] Respiratory 23 17 Rate Blood Pressure 145/68 138/74 O2 Sat by Pulse 100 100 Oximetry O2 Sat by Pulse Oximetry [ Assessment] 06/23/21 06/23/21 06/23/21 04:31 05:00 05:31 Temperature Pulse Rate 82 86 94 H Pulse Rate [ From Monitor] Respiratory 21 25 H 18 Rate Blood Pressure 138/74 138/81 138/81 O2 Sat by Pulse 100 100 100 Oximetry O2 Sat by Pulse Oximetry [ Assessment] 06/23/21 06/23/21 06/23/21 05:55 06:00 06:31 Temperature Pulse Rate 90 92 H 89 Pulse Rate [ From Monitor] Respiratory Rate Blood Pressure 138/81 138/71 138/71 O2 Sat by Pulse 100 100 Oximetry O2 Sat by Pulse Oximetry [ Assessment] 06/23/21 06/23/21 06/23/21 07:00 07:24 07:31 Temperature 98.6 F Pulse Rate 92 H 83 Pulse Rate [ From Monitor] Respiratory Rate Blood Pressure 147/67 147/67 O2 Sat by Pulse 100 100 Oximetry O2 Sat by Pulse Oximetry [ Assessment] 06/23/21 06/23/21 06/23/21 08:00 08:31 09:00 Temperature Pulse Rate 91 H 87 91 H Pulse Rate [ 81 From Monitor] Respiratory 22 25 H 27 H Rate Blood Pressure 152/64 152/64 154/61 O2 Sat by Pulse 100 100 100 Oximetry O2 Sat by Pulse 100 Oximetry [ Assessment] 06/23/21 06/23/21 06/23/21 09:31 10:00 10:31 Temperature Pulse Rate 85 91 H 79 Pulse Rate [ From Monitor] Respiratory 22 35 H 24 Rate Blood Pressure 154/61 147/63 147/63 O2 Sat by Pulse 100 100 100 Oximetry O2 Sat by Pulse Oximetry [ Assessment] 06/23/21 06/23/21 06/23/21 11:00 11:31 12:00 Temperature Pulse Rate 82 76 85 Pulse Rate [ 81 From Monitor] Respiratory 27 H 22 22 Rate Blood Pressure 142/65 147/63 O2 Sat by Pulse 100 100 96 Oximetry O2 Sat by Pulse Oximetry [ Assessment] 06/23/21 12:01 Temperature Pulse Rate 74 Pulse Rate [ From Monitor] Respiratory 21 Rate Blood Pressure 109/45 O2 Sat by Pulse 100 Oximetry O2 Sat by Pulse Oximetry [ Assessment] Constitutional: appears uncomfortable, other (elderly female with normal respiratory effort at rest , trach to ATP) Eyes: non-icteric ENT: oropharynx moist, other (+ midline tracheostomy with mild secretions) Neck: supple, no lymphadenopathy Effort: mildly labored Ascultation: Bilateral: diminished breath sounds, rhonchi (scant) Percussion: Bilateral: not dull Cardiovascular: regular rate and rhythm, other (S1,S2) Gastrointestinal: normoactive bowel sounds, soft, non-tender, non-distended (protuberant), other (+ PEG tube) Integumentary: normal Extremities: no cyanosis, pulses normal, no ischemia or petechiae, other (Right femoral CVL) Neurologic: pupils equal and round, unable to assess, other (encephalopathic) Psychiatric: other (unable to assess) CBC and BMP: 06/24/21 04:40 06/24/21 04:40 ABG, PT/INR, D-dimer: ABG ABG pH 7.484 (7.320-7.450) H 06/23/21 10:50 POC ABG pCO2 39.0 mmHg (32.0-48.0) 06/23/21 10:50 ABG pCO2 30.3 mm Hg 05/29/21 05:28 POC ABG pO2 96.2 mmHg (83-108) 06/23/21 10:50 ABG pO2 96.2 mm Hg (80.0-90.0) H 05/29/21 05:28 POC ABG HCO3 28.7 06/23/21 10:50 ABG O2 Saturation 97.5 (0-100) 06/23/21 10:50 PT/INR, D-dimer PT 14.5 Sec. (12.2-14.9) 06/16/21 18:51 INR 1.08 (0.87-1.13) 06/16/21 18:51 D-Dimer > 50688 ng/mlDDU (0-234) H 05/25/21 09:21 Abnormal lab findings: Abnormal Labs 05/25/21 05/25/21 05/25/21 09:07 09:21 09:21 WBC 17.1 H RBC Hgb Hct MCV 106 H MCH 33 H MCHC RDW 15.6 H Burt % (Auto) Burt # (Auto) Seg Neutrophils % Seg Neuts % (Manual) Lymphocytes % (Manual) Monocytes % (Manual) Seg Neutrophils # Seg Neutrophils # Man 10.1 H Lymphocytes # (Manual) 5.6 H Monocytes # (Manual) PT 15.0 H APTT 44.3 H D-Dimer > 55837 H Heparin Anti-Xa Level ABG pH 7.116 L POC ABG pCO2 POC ABG pO2 ABG pO2 ABG Hemoglobin ABG Oxyhemoglobin 93.7 L ABG Sodium ABG Potassium ABG Chloride ABG Glucose 395 H Carboxyhemoglobin Sodium Potassium Chloride Carbon Dioxide BUN Creatinine Glucose POC Glucose Lactic Acid Calcium Phosphorus Magnesium Ferritin AST ALT Alkaline Phosphatase Lactate Dehydrogenase Troponin T C-Reactive Protein Total Protein Albumin HDL Cholesterol Arterial Blood Glucose 395 H Arterial Blood Ionized Calcium 4.4 L Urine WBC (Auto) Urine Creatinine 05/25/21 05/25/21 05/25/21 09:21 09:21 09:21 WBC RBC Hgb Hct MCV MCH MCHC RDW Burt % (Auto) Burt # (Auto) Seg Neutrophils % Seg Neuts % (Manual) Lymphocytes % (Manual) Monocytes % (Manual) Seg Neutrophils # Seg Neutrophils # Man Lymphocytes # (Manual) Monocytes # (Manual) PT APTT D-Dimer Heparin Anti-Xa Level ABG pH POC ABG pCO2 POC ABG pO2 ABG pO2 ABG Hemoglobin ABG Oxyhemoglobin ABG Sodium ABG Potassium ABG Chloride ABG Glucose Carboxyhemoglobin Sodium Potassium Chloride Carbon Dioxide 10 L BUN Creatinine Glucose 423 H 424 H POC Glucose Lactic Acid Calcium 8.2 L Phosphorus Magnesium Ferritin 321.6 H AST 162 H ALT 119 H Alkaline Phosphatase Lactate Dehydrogenase 445 H Troponin T C-Reactive Protein Total Protein 5.6 L Albumin 3.2 L HDL Cholesterol Arterial Blood Glucose Arterial Blood Ionized Calcium Urine WBC (Auto) Urine Creatinine 05/25/21 05/25/21 05/25/21 09:35 10:42 11:12 WBC RBC Hgb Hct MCV MCH MCHC RDW Burt % (Auto) Burt # (Auto) Seg Neutrophils % Seg Neuts % (Manual) Lymphocytes % (Manual) Monocytes % (Manual) Seg Neutrophils # Seg Neutrophils # Man Lymphocytes # (Manual) Monocytes # (Manual) PT APTT D-Dimer Heparin Anti-Xa Level ABG pH POC ABG pCO2 POC ABG pO2 ABG pO2 ABG Hemoglobin ABG Oxyhemoglobin ABG Sodium ABG Potassium ABG Chloride ABG Glucose Carboxyhemoglobin Sodium Potassium Chloride Carbon Dioxide BUN Creatinine Glucose POC Glucose Lactic Acid 16.70 H* 7.70 H* Calcium Phosphorus Magnesium Ferritin AST ALT Alkaline Phosphatase Lactate Dehydrogenase Troponin T C-Reactive Protein Total Protein Albumin HDL Cholesterol Arterial Blood Glucose Arterial Blood Ionized Calcium Urine WBC (Auto) 11.0 H Urine Creatinine 05/25/21 05/25/21 05/25/21 14:07 15:19 19:04 WBC RBC Hgb Hct MCV MCH MCHC RDW Burt % (Auto) Burt # (Auto) Seg Neutrophils % Seg Neuts % (Manual) Lymphocytes % (Manual) Monocytes % (Manual) Seg Neutrophils # Seg Neutrophils # Man Lymphocytes # (Manual) Monocytes # (Manual) PT APTT D-Dimer Heparin Anti-Xa Level ABG pH POC ABG pCO2 POC ABG pO2 172.2 H ABG pO2 ABG Hemoglobin ABG Oxyhemoglobin 98.7 H ABG Sodium 135.7 L ABG Potassium ABG Chloride ABG Glucose 255 H Carboxyhemoglobin 0.3 L Sodium Potassium Chloride Carbon Dioxide BUN Creatinine Glucose POC Glucose Lactic Acid 3.90 H* Calcium Phosphorus Magnesium Ferritin AST ALT Alkaline Phosphatase Lactate Dehydrogenase Troponin T 0.226 H* D C-Reactive Protein Total Protein Albumin HDL Cholesterol 64 H Arterial Blood Glucose 255 H Arterial Blood Ionized Calcium 3.8 L Urine WBC (Auto) Urine Creatinine 05/25/21 05/25/21 05/26/21 21:16 21:16 04:00 WBC RBC Hgb Hct MCV MCH MCHC RDW Burt % (Auto) Burt # (Auto) Seg Neutrophils % Seg Neuts % (Manual) Lymphocytes % (Manual) Monocytes % (Manual) Seg Neutrophils # Seg Neutrophils # Man Lymphocytes # (Manual) Monocytes # (Manual) PT APTT D-Dimer Heparin Anti-Xa Level 1.19 H ABG pH 7.547 H POC ABG pCO2 POC ABG pO2 ABG pO2 ABG Hemoglobin 11.9 L ABG Oxyhemoglobin ABG Sodium 133.2 L ABG Potassium 3.1 L ABG Chloride ABG Glucose 243 H Carboxyhemoglobin 0.3 L Sodium Potassium Chloride Carbon Dioxide BUN Creatinine Glucose POC Glucose Lactic Acid 2.50 H* Calcium Phosphorus Magnesium Ferritin AST ALT Alkaline Phosphatase Lactate Dehydrogenase Troponin T C-Reactive Protein Total Protein Albumin HDL Cholesterol Arterial Blood Glucose 243 H Arterial Blood Ionized Calcium Urine WBC (Auto) Urine Creatinine 05/26/21 05/26/21 05/26/21 05:49 05:49 17:33 WBC RBC Hgb Hct MCV MCH MCHC RDW Burt % (Auto) Burt # (Auto) Seg Neutrophils % Seg Neuts % (Manual) Lymphocytes % (Manual) Monocytes % (Manual) Seg Neutrophils # Seg Neutrophils # Man Lymphocytes # (Manual) Monocytes # (Manual) PT APTT D-Dimer Heparin Anti-Xa Level ABG pH POC ABG pCO2 POC ABG pO2 ABG pO2 ABG Hemoglobin ABG Oxyhemoglobin ABG Sodium ABG Potassium ABG Chloride ABG Glucose Carboxyhemoglobin Sodium Potassium Chloride Carbon Dioxide BUN Creatinine Glucose 226 H POC Glucose 156 H Lactic Acid 2.30 H* Calcium 7.2 L Phosphorus Magnesium Ferritin AST 111 H ALT 97 H Alkaline Phosphatase Lactate Dehydrogenase Troponin T C-Reactive Protein Total Protein 5.4 L Albumin 3.3 L HDL Cholesterol Arterial Blood Glucose Arterial Blood Ionized Calcium Urine WBC (Auto) Urine Creatinine 05/27/21 05/27/21 05/27/21 02:11 02:11 02:11 WBC 14.3 H RBC 3.27 L Hgb Hct MCV 99 H MCH 33 H MCHC RDW 15.3 H Burt % (Auto) Burt # (Auto) 1.0 H Seg Neutrophils % Seg Neuts % (Manual) Lymphocytes % (Manual) Monocytes % (Manual) Seg Neutrophils # 10.0 H Seg Neutrophils # Man Lymphocytes # (Manual) Monocytes # (Manual) PT APTT D-Dimer Heparin Anti-Xa Level 0.80 H ABG pH POC ABG pCO2 POC ABG pO2 ABG pO2 ABG Hemoglobin ABG Oxyhemoglobin ABG Sodium ABG Potassium ABG Chloride ABG Glucose Carboxyhemoglobin Sodium Potassium 2.9 L* D Chloride Carbon Dioxide 31 H BUN 6 L Creatinine Glucose 215 H POC Glucose Lactic Acid Calcium 8.1 L Phosphorus Magnesium Ferritin AST ALT Alkaline Phosphatase Lactate Dehydrogenase Troponin T C-Reactive Protein Total Protein Albumin HDL Cholesterol Arterial Blood Glucose Arterial Blood Ionized Calcium Urine WBC (Auto) Urine Creatinine 05/27/21 05/27/21 05/27/21 11:24 12:49 18:06 WBC RBC Hgb Hct MCV MCH MCHC RDW Burt % (Auto) Burt # (Auto) Seg Neutrophils % Seg Neuts % (Manual) Lymphocytes % (Manual) Monocytes % (Manual) Seg Neutrophils # Seg Neutrophils # Man Lymphocytes # (Manual) Monocytes # (Manual) PT APTT D-Dimer Heparin Anti-Xa Level ABG pH POC ABG pCO2 POC ABG pO2 ABG pO2 ABG Hemoglobin ABG Oxyhemoglobin ABG Sodium ABG Potassium ABG Chloride ABG Glucose Carboxyhemoglobin Sodium Potassium Chloride Carbon Dioxide BUN Creatinine Glucose POC Glucose 151 H 165 H 137 H Lactic Acid Calcium Phosphorus Magnesium Ferritin AST ALT Alkaline Phosphatase Lactate Dehydrogenase Troponin T C-Reactive Protein Total Protein Albumin HDL Cholesterol Arterial Blood Glucose Arterial Blood Ionized Calcium Urine WBC (Auto) Urine Creatinine 05/28/21 05/28/21 05/28/21 04:00 04:00 06:02 WBC 13.5 H RBC 3.05 L Hgb Hct MCV 100 H MCH 34 H MCHC RDW Burt % (Auto) Burt # (Auto) 0.9 H Seg Neutrophils % 78.2 H Seg Neuts % (Manual) Lymphocytes % (Manual) Monocytes % (Manual) Seg Neutrophils # 10.6 H Seg Neutrophils # Man Lymphocytes # (Manual) Monocytes # (Manual) PT APTT D-Dimer Heparin Anti-Xa Level ABG pH 7.507 H POC ABG pCO2 POC ABG pO2 ABG pO2 ABG Hemoglobin 10.6 L ABG Oxyhemoglobin ABG Sodium 129.4 L ABG Potassium ABG Chloride ABG Glucose 243 H Carboxyhemoglobin 0.2 L Sodium 136 L D Potassium Chloride Carbon Dioxide BUN Creatinine Glucose 215 H POC Glucose Lactic Acid Calcium Phosphorus Magnesium Ferritin AST ALT Alkaline Phosphatase Lactate Dehydrogenase Troponin T C-Reactive Protein Total Protein Albumin HDL Cholesterol Arterial Blood Glucose 243 H Arterial Blood Ionized Calcium 4.1 L Urine WBC (Auto) Urine Creatinine 05/28/21 05/28/21 05/29/21 11:27 23:02 04:30 WBC RBC Hgb 9.3 L Hct 26.7 L MCV MCH MCHC RDW Burt % (Auto) Burt # (Auto) Seg Neutrophils % Seg Neuts % (Manual) Lymphocytes % (Manual) Monocytes % (Manual) Seg Neutrophils # Seg Neutrophils # Man Lymphocytes # (Manual) Monocytes # (Manual) PT APTT D-Dimer Heparin Anti-Xa Level ABG pH POC ABG pCO2 POC ABG pO2 ABG pO2 ABG Hemoglobin ABG Oxyhemoglobin ABG Sodium ABG Potassium ABG Chloride ABG Glucose Carboxyhemoglobin Sodium Potassium Chloride Carbon Dioxide BUN Creatinine Glucose POC Glucose 220 H 212 H Lactic Acid Calcium Phosphorus Magnesium Ferritin AST ALT Alkaline Phosphatase Lactate Dehydrogenase Troponin T C-Reactive Protein Total Protein Albumin HDL Cholesterol Arterial Blood Glucose Arterial Blood Ionized Calcium Urine WBC (Auto) Urine Creatinine 05/29/21 05/29/21 05/29/21 05:02 05:28 12:55 WBC RBC Hgb Hct MCV MCH MCHC RDW Burt % (Auto) Burt # (Auto) Seg Neutrophils % Seg Neuts % (Manual) Lymphocytes % (Manual) Monocytes % (Manual) Seg Neutrophils # Seg Neutrophils # Man Lymphocytes # (Manual) Monocytes # (Manual) PT APTT D-Dimer Heparin Anti-Xa Level ABG pH 7.516 H POC ABG pCO2 POC ABG pO2 ABG pO2 96.2 H ABG Hemoglobin 7.5 L ABG Oxyhemoglobin ABG Sodium ABG Potassium ABG Chloride ABG Glucose Carboxyhemoglobin Sodium Potassium Chloride Carbon Dioxide BUN Creatinine Glucose POC Glucose 197 H 251 H Lactic Acid Calcium Phosphorus Magnesium Ferritin AST ALT Alkaline Phosphatase Lactate Dehydrogenase Troponin T C-Reactive Protein Total Protein Albumin HDL Cholesterol Arterial Blood Glucose Arterial Blood Ionized Calcium Urine WBC (Auto) Urine Creatinine 05/29/21 05/29/21 05/30/21 18:23 23:31 04:10 WBC RBC Hgb Hct MCV MCH MCHC RDW Burt % (Auto) Burt # (Auto) Seg Neutrophils % Seg Neuts % (Manual) Lymphocytes % (Manual) Monocytes % (Manual) Seg Neutrophils # Seg Neutrophils # Man Lymphocytes # (Manual) Monocytes # (Manual) PT APTT D-Dimer Heparin Anti-Xa Level ABG pH 7.532 H POC ABG pCO2 30.0 L POC ABG pO2 78.5 L ABG pO2 ABG Hemoglobin 11.3 L ABG Oxyhemoglobin ABG Sodium 126.7 L ABG Potassium ABG Chloride 94.0 L ABG Glucose 270 H Carboxyhemoglobin 0.4 L Sodium Potassium Chloride Carbon Dioxide BUN Creatinine Glucose POC Glucose 236 H 252 H Lactic Acid Calcium Phosphorus Magnesium Ferritin AST ALT Alkaline Phosphatase Lactate Dehydrogenase Troponin T C-Reactive Protein Total Protein Albumin HDL Cholesterol Arterial Blood Glucose 270 H Arterial Blood Ionized Calcium 4.4 L Urine WBC (Auto) Urine Creatinine 05/30/21 05/30/21 05/30/21 05:06 06:23 11:15 WBC RBC Hgb Hct MCV MCH MCHC RDW Burt % (Auto) Burt # (Auto) Seg Neutrophils % Seg Neuts % (Manual) Lymphocytes % (Manual) Monocytes % (Manual) Seg Neutrophils # Seg Neutrophils # Man Lymphocytes # (Manual) Monocytes # (Manual) PT APTT D-Dimer Heparin Anti-Xa Level ABG pH POC ABG pCO2 POC ABG pO2 ABG pO2 ABG Hemoglobin ABG Oxyhemoglobin ABG Sodium ABG Potassium ABG Chloride ABG Glucose Carboxyhemoglobin Sodium 126 L D Potassium Chloride 91.9 L Carbon Dioxide 20 L D BUN Creatinine 0.4 L Glucose 274 H POC Glucose 242 H 346 H Lactic Acid Calcium Phosphorus Magnesium Ferritin AST ALT Alkaline Phosphatase Lactate Dehydrogenase Troponin T C-Reactive Protein Total Protein Albumin HDL Cholesterol Arterial Blood Glucose Arterial Blood Ionized Calcium Urine WBC (Auto) Urine Creatinine 05/30/21 05/30/21 05/30/21 11:19 11:19 11:19 WBC 18.9 H RBC 3.36 L Hgb Hct MCV 102 H MCH 33 H MCHC RDW 15.5 H Burt % (Auto) Burt # (Auto) Seg Neutrophils % Seg Neuts % (Manual) Lymphocytes % (Manual) Monocytes % (Manual) Seg Neutrophils # Seg Neutrophils # Man Lymphocytes # (Manual) Monocytes # (Manual) PT APTT D-Dimer Heparin Anti-Xa Level < 0.10 L ABG pH POC ABG pCO2 POC ABG pO2 ABG pO2 ABG Hemoglobin ABG Oxyhemoglobin ABG Sodium ABG Potassium ABG Chloride ABG Glucose Carboxyhemoglobin Sodium 124 L Potassium Chloride Carbon Dioxide BUN Creatinine Glucose POC Glucose Lactic Acid Calcium Phosphorus Magnesium Ferritin AST ALT Alkaline Phosphatase Lactate Dehydrogenase Troponin T C-Reactive Protein Total Protein Albumin HDL Cholesterol Arterial Blood Glucose Arterial Blood Ionized Calcium Urine WBC (Auto) Urine Creatinine 05/30/21 05/30/21 05/31/21 17:02 23:27 03:37 WBC RBC Hgb Hct MCV MCH MCHC RDW Burt % (Auto) Burt # (Auto) Seg Neutrophils % Seg Neuts % (Manual) Lymphocytes % (Manual) Monocytes % (Manual) Seg Neutrophils # Seg Neutrophils # Man Lymphocytes # (Manual) Monocytes # (Manual) PT APTT D-Dimer Heparin Anti-Xa Level ABG pH POC ABG pCO2 POC ABG pO2 ABG pO2 ABG Hemoglobin 11.6 L ABG Oxyhemoglobin ABG Sodium 130.0 L ABG Potassium ABG Chloride 95.0 L ABG Glucose 292 H Carboxyhemoglobin Sodium Potassium Chloride Carbon Dioxide BUN Creatinine Glucose POC Glucose 270 H 237 H Lactic Acid Calcium Phosphorus Magnesium Ferritin AST ALT Alkaline Phosphatase Lactate Dehydrogenase Troponin T C-Reactive Protein Total Protein Albumin HDL Cholesterol Arterial Blood Glucose 292 H Arterial Blood Ionized Calcium Urine WBC (Auto) Urine Creatinine 05/31/21 05/31/21 05/31/21 04:00 04:00 05:20 WBC 20.9 H RBC 3.13 L Hgb Hct MCV 99 H MCH 34 H MCHC RDW Burt % (Auto) Burt # (Auto) Seg Neutrophils % Seg Neuts % (Manual) 81.0 H Lymphocytes % (Manual) 8.0 L Monocytes % (Manual) 9.0 H Seg Neutrophils # Seg Neutrophils # Man 16.9 H Lymphocytes # (Manual) Monocytes # (Manual) 1.9 H PT APTT D-Dimer Heparin Anti-Xa Level ABG pH POC ABG pCO2 POC ABG pO2 ABG pO2 ABG Hemoglobin ABG Oxyhemoglobin ABG Sodium ABG Potassium ABG Chloride ABG Glucose Carboxyhemoglobin Sodium 133 L D Potassium Chloride 95.4 L Carbon Dioxide 21 L BUN 30 H Creatinine 0.5 L Glucose 305 H POC Glucose 269 H Lactic Acid Calcium Phosphorus Magnesium Ferritin AST ALT Alkaline Phosphatase Lactate Dehydrogenase Troponin T C-Reactive Protein Total Protein Albumin HDL Cholesterol Arterial Blood Glucose Arterial Blood Ionized Calcium Urine WBC (Auto) Urine Creatinine 05/31/21 05/31/21 05/31/21 11:40 18:16 23:25 WBC RBC Hgb Hct MCV MCH MCHC RDW Burt % (Auto) Burt # (Auto) Seg Neutrophils % Seg Neuts % (Manual) Lymphocytes % (Manual) Monocytes % (Manual) Seg Neutrophils # Seg Neutrophils # Man Lymphocytes # (Manual) Monocytes # (Manual) PT APTT D-Dimer Heparin Anti-Xa Level ABG pH POC ABG pCO2 POC ABG pO2 ABG pO2 ABG Hemoglobin ABG Oxyhemoglobin ABG Sodium ABG Potassium ABG Chloride ABG Glucose Carboxyhemoglobin Sodium Potassium Chloride Carbon Dioxide BUN Creatinine Glucose POC Glucose 364 H 250 H 231 H Lactic Acid Calcium Phosphorus Magnesium Ferritin AST ALT Alkaline Phosphatase Lactate Dehydrogenase Troponin T C-Reactive Protein Total Protein Albumin HDL Cholesterol Arterial Blood Glucose Arterial Blood Ionized Calcium Urine WBC (Auto) Urine Creatinine 06/01/21 06/01/21 06/01/21 04:03 04:58 04:58 WBC 20.7 H RBC 3.20 L Hgb Hct MCV 99 H MCH 34 H MCHC RDW Burt % (Auto) Burt # (Auto) Seg Neutrophils % Seg Neuts % (Manual) 82.0 H Lymphocytes % (Manual) 9.0 L Monocytes % (Manual) Seg Neutrophils # Seg Neutrophils # Man 17.0 H Lymphocytes # (Manual) Monocytes # (Manual) 1.4 H PT APTT D-Dimer Heparin Anti-Xa Level 1.18 H ABG pH 7.520 H POC ABG pCO2 POC ABG pO2 66.0 L ABG pO2 ABG Hemoglobin ABG Oxyhemoglobin 92.5 L ABG Sodium 133.6 L ABG Potassium ABG Chloride ABG Glucose 250 H Carboxyhemoglobin Sodium Potassium Chloride Carbon Dioxide BUN Creatinine Glucose POC Glucose Lactic Acid Calcium Phosphorus Magnesium Ferritin AST ALT Alkaline Phosphatase Lactate Dehydrogenase Troponin T C-Reactive Protein Total Protein Albumin HDL Cholesterol Arterial Blood Glucose 250 H Arterial Blood Ionized Calcium 4.4 L Urine WBC (Auto) Urine Creatinine 06/01/21 06/01/21 06/01/21 04:58 05:29 11:39 WBC RBC Hgb Hct MCV MCH MCHC RDW Burt % (Auto) Burt # (Auto) Seg Neutrophils % Seg Neuts % (Manual) Lymphocytes % (Manual) Monocytes % (Manual) Seg Neutrophils # Seg Neutrophils # Man Lymphocytes # (Manual) Monocytes # (Manual) PT APTT D-Dimer Heparin Anti-Xa Level ABG pH POC ABG pCO2 POC ABG pO2 ABG pO2 ABG Hemoglobin ABG Oxyhemoglobin ABG Sodium ABG Potassium ABG Chloride ABG Glucose Carboxyhemoglobin Sodium 131 L Potassium Chloride 95.7 L Carbon Dioxide BUN 30 H Creatinine 0.5 L Glucose 241 H POC Glucose 215 H 299 H Lactic Acid Calcium Phosphorus Magnesium Ferritin AST ALT Alkaline Phosphatase Lactate Dehydrogenase Troponin T C-Reactive Protein Total Protein Albumin HDL Cholesterol Arterial Blood Glucose Arterial Blood Ionized Calcium Urine WBC (Auto) Urine Creatinine 06/01/21 06/02/21 06/02/21 18:14 00:12 02:25 WBC 17.4 H RBC 3.09 L Hgb Hct MCV 101 H MCH 34 H MCHC RDW 15.5 H Burt % (Auto) Burt # (Auto) Seg Neutrophils % Seg Neuts % (Manual) Lymphocytes % (Manual) Monocytes % (Manual) Seg Neutrophils # Seg Neutrophils # Man Lymphocytes # (Manual) Monocytes # (Manual) PT APTT D-Dimer Heparin Anti-Xa Level ABG pH POC ABG pCO2 POC ABG pO2 ABG pO2 ABG Hemoglobin ABG Oxyhemoglobin ABG Sodium ABG Potassium ABG Chloride ABG Glucose Carboxyhemoglobin Sodium Potassium Chloride Carbon Dioxide BUN Creatinine Glucose POC Glucose 215 H 175 H Lactic Acid Calcium Phosphorus Magnesium Ferritin AST ALT Alkaline Phosphatase Lactate Dehydrogenase Troponin T C-Reactive Protein Total Protein Albumin HDL Cholesterol Arterial Blood Glucose Arterial Blood Ionized Calcium Urine WBC (Auto) Urine Creatinine 06/02/21 06/02/21 06/02/21 02:25 04:13 04:58 WBC RBC Hgb Hct MCV MCH MCHC RDW Burt % (Auto) Burt # (Auto) Seg Neutrophils % Seg Neuts % (Manual) Lymphocytes % (Manual) Monocytes % (Manual) Seg Neutrophils # Seg Neutrophils # Man Lymphocytes # (Manual) Monocytes # (Manual) PT APTT D-Dimer Heparin Anti-Xa Level ABG pH 7.481 H POC ABG pCO2 POC ABG pO2 80.0 L ABG pO2 ABG Hemoglobin 11.1 L ABG Oxyhemoglobin ABG Sodium 131.9 L ABG Potassium ABG Chloride ABG Glucose 231 H Carboxyhemoglobin 0.2 L Sodium 134 L Potassium Chloride 95.8 L Carbon Dioxide BUN 31 H Creatinine 0.5 L Glucose 168 H POC Glucose 230 H Lactic Acid Calcium Phosphorus Magnesium Ferritin AST ALT Alkaline Phosphatase Lactate Dehydrogenase Troponin T C-Reactive Protein Total Protein Albumin HDL Cholesterol Arterial Blood Glucose 231 H Arterial Blood Ionized Calcium Urine WBC (Auto) Urine Creatinine 06/02/21 06/02/21 06/02/21 11:27 17:47 23:53 WBC RBC Hgb Hct MCV MCH MCHC RDW Burt % (Auto) Burt # (Auto) Seg Neutrophils % Seg Neuts % (Manual) Lymphocytes % (Manual) Monocytes % (Manual) Seg Neutrophils # Seg Neutrophils # Man Lymphocytes # (Manual) Monocytes # (Manual) PT APTT D-Dimer Heparin Anti-Xa Level 0.80 H ABG pH POC ABG pCO2 POC ABG pO2 ABG pO2 ABG Hemoglobin ABG Oxyhemoglobin ABG Sodium ABG Potassium ABG Chloride ABG Glucose Carboxyhemoglobin Sodium Potassium Chloride Carbon Dioxide BUN Creatinine Glucose POC Glucose 259 H 297 H Lactic Acid Calcium Phosphorus Magnesium Ferritin AST ALT Alkaline Phosphatase Lactate Dehydrogenase Troponin T C-Reactive Protein Total Protein Albumin HDL Cholesterol Arterial Blood Glucose Arterial Blood Ionized Calcium Urine WBC (Auto) Urine Creatinine 06/03/21 06/03/21 06/03/21 00:05 05:23 09:10 WBC RBC Hgb Hct MCV MCH MCHC RDW Burt % (Auto) Burt # (Auto) Seg Neutrophils % Seg Neuts % (Manual) Lymphocytes % (Manual) Monocytes % (Manual) Seg Neutrophils # Seg Neutrophils # Man Lymphocytes # (Manual) Monocytes # (Manual) PT APTT D-Dimer Heparin Anti-Xa Level 0.84 H ABG pH POC ABG pCO2 POC ABG pO2 ABG pO2 ABG Hemoglobin ABG Oxyhemoglobin ABG Sodium ABG Potassium ABG Chloride ABG Glucose Carboxyhemoglobin Sodium Potassium Chloride Carbon Dioxide BUN Creatinine Glucose POC Glucose 268 H 170 H Lactic Acid Calcium Phosphorus Magnesium Ferritin AST ALT Alkaline Phosphatase Lactate Dehydrogenase Troponin T C-Reactive Protein Total Protein Albumin HDL Cholesterol Arterial Blood Glucose Arterial Blood Ionized Calcium Urine WBC (Auto) Urine Creatinine 06/03/21 06/03/21 06/03/21 12:06 20:22 23:30 WBC RBC Hgb Hct MCV MCH MCHC RDW Burt % (Auto) Burt # (Auto) Seg Neutrophils % Seg Neuts % (Manual) Lymphocytes % (Manual) Monocytes % (Manual) Seg Neutrophils # Seg Neutrophils # Man Lymphocytes # (Manual) Monocytes # (Manual) PT APTT D-Dimer Heparin Anti-Xa Level ABG pH POC ABG pCO2 POC ABG pO2 ABG pO2 ABG Hemoglobin ABG Oxyhemoglobin ABG Sodium ABG Potassium ABG Chloride ABG Glucose Carboxyhemoglobin Sodium Potassium Chloride Carbon Dioxide BUN Creatinine Glucose POC Glucose 275 H 260 H 215 H Lactic Acid Calcium Phosphorus Magnesium Ferritin AST ALT Alkaline Phosphatase Lactate Dehydrogenase Troponin T C-Reactive Protein Total Protein Albumin HDL Cholesterol Arterial Blood Glucose Arterial Blood Ionized Calcium Urine WBC (Auto) Urine Creatinine 06/04/21 06/04/21 06/04/21 05:03 05:57 05:57 WBC 17.8 H RBC 2.83 L Hgb 9.6 L Hct 28.4 L MCV 100 H MCH 34 H MCHC RDW 15.5 H Burt % (Auto) Burt # (Auto) Seg Neutrophils % Seg Neuts % (Manual) 83.0 H Lymphocytes % (Manual) 4.0 L Monocytes % (Manual) Seg Neutrophils # Seg Neutrophils # Man 14.8 H Lymphocytes # (Manual) 0.7 L Monocytes # (Manual) 1.1 H PT APTT D-Dimer Heparin Anti-Xa Level ABG pH POC ABG pCO2 POC ABG pO2 ABG pO2 ABG Hemoglobin ABG Oxyhemoglobin ABG Sodium ABG Potassium ABG Chloride ABG Glucose Carboxyhemoglobin Sodium 135 L Potassium Chloride 96.3 L Carbon Dioxide BUN 51 H Creatinine Glucose 275 H POC Glucose 257 H Lactic Acid Calcium Phosphorus Magnesium Ferritin AST ALT Alkaline Phosphatase Lactate Dehydrogenase Troponin T C-Reactive Protein Total Protein Albumin HDL Cholesterol Arterial Blood Glucose Arterial Blood Ionized Calcium Urine WBC (Auto) Urine Creatinine 06/04/21 06/04/21 06/04/21 09:48 11:08 17:33 WBC RBC Hgb Hct MCV MCH MCHC RDW Burt % (Auto) Burt # (Auto) Seg Neutrophils % Seg Neuts % (Manual) Lymphocytes % (Manual) Monocytes % (Manual) Seg Neutrophils # Seg Neutrophils # Man Lymphocytes # (Manual) Monocytes # (Manual) PT APTT D-Dimer Heparin Anti-Xa Level ABG pH POC ABG pCO2 POC ABG pO2 ABG pO2 ABG Hemoglobin ABG Oxyhemoglobin ABG Sodium ABG Potassium ABG Chloride ABG Glucose Carboxyhemoglobin Sodium Potassium Chloride Carbon Dioxide BUN Creatinine Glucose POC Glucose 198 H 234 H 247 H Lactic Acid Calcium Phosphorus Magnesium Ferritin AST ALT Alkaline Phosphatase Lactate Dehydrogenase Troponin T C-Reactive Protein Total Protein Albumin HDL Cholesterol Arterial Blood Glucose Arterial Blood Ionized Calcium Urine WBC (Auto) Urine Creatinine 06/04/21 06/05/21 06/05/21 23:30 05:38 11:24 WBC RBC Hgb Hct MCV MCH MCHC RDW Burt % (Auto) Burt # (Auto) Seg Neutrophils % Seg Neuts % (Manual) Lymphocytes % (Manual) Monocytes % (Manual) Seg Neutrophils # Seg Neutrophils # Man Lymphocytes # (Manual) Monocytes # (Manual) PT APTT D-Dimer Heparin Anti-Xa Level ABG pH POC ABG pCO2 POC ABG pO2 ABG pO2 ABG Hemoglobin ABG Oxyhemoglobin ABG Sodium ABG Potassium ABG Chloride ABG Glucose Carboxyhemoglobin Sodium Potassium Chloride Carbon Dioxide BUN Creatinine Glucose POC Glucose 192 H 192 H 287 H Lactic Acid Calcium Phosphorus Magnesium Ferritin AST ALT Alkaline Phosphatase Lactate Dehydrogenase Troponin T C-Reactive Protein Total Protein Albumin HDL Cholesterol Arterial Blood Glucose Arterial Blood Ionized Calcium Urine WBC (Auto) Urine Creatinine 06/05/21 06/05/21 06/05/21 12:20 12:20 12:20 WBC 16.2 H RBC 2.56 L Hgb 8.8 L Hct 25.2 L MCV 98 H MCH 35 H MCHC 35 H RDW 15.3 H Burt % (Auto) Burt # (Auto) Seg Neutrophils % Seg Neuts % (Manual) Lymphocytes % (Manual) Monocytes % (Manual) Seg Neutrophils # Seg Neutrophils # Man Lymphocytes # (Manual) Monocytes # (Manual) PT APTT 72.2 H* D-Dimer Heparin Anti-Xa Level ABG pH POC ABG pCO2 POC ABG pO2 ABG pO2 ABG Hemoglobin ABG Oxyhemoglobin ABG Sodium ABG Potassium ABG Chloride ABG Glucose Carboxyhemoglobin Sodium 133 L Potassium Chloride 95.3 L Carbon Dioxide BUN 57 H Creatinine Glucose 313 H POC Glucose Lactic Acid Calcium Phosphorus Magnesium Ferritin AST 90 H ALT 79 H Alkaline Phosphatase 262 H Lactate Dehydrogenase Troponin T C-Reactive Protein Total Protein Albumin 2.7 L HDL Cholesterol Arterial Blood Glucose Arterial Blood Ionized Calcium Urine WBC (Auto) Urine Creatinine 06/05/21 06/05/21 06/05/21 17:50 22:57 23:36 WBC RBC Hgb Hct MCV MCH MCHC RDW Burt % (Auto) Burt # (Auto) Seg Neutrophils % Seg Neuts % (Manual) Lymphocytes % (Manual) Monocytes % (Manual) Seg Neutrophils # Seg Neutrophils # Man Lymphocytes # (Manual) Monocytes # (Manual) PT APTT D-Dimer Heparin Anti-Xa Level 0.28 L ABG pH POC ABG pCO2 POC ABG pO2 ABG pO2 ABG Hemoglobin ABG Oxyhemoglobin ABG Sodium ABG Potassium ABG Chloride ABG Glucose Carboxyhemoglobin Sodium Potassium Chloride Carbon Dioxide BUN Creatinine Glucose POC Glucose 275 H 223 H Lactic Acid Calcium Phosphorus Magnesium Ferritin AST ALT Alkaline Phosphatase Lactate Dehydrogenase Troponin T C-Reactive Protein Total Protein Albumin HDL Cholesterol Arterial Blood Glucose Arterial Blood Ionized Calcium Urine WBC (Auto) Urine Creatinine 06/06/21 06/06/21 06/06/21 04:57 04:57 05:02 WBC 15.7 H RBC 2.77 L Hgb 9.4 L Hct 27.2 L MCV 98 H MCH 34 H MCHC RDW 15.4 H Burt % (Auto) Burt # (Auto) Seg Neutrophils % Seg Neuts % (Manual) Lymphocytes % (Manual) Monocytes % (Manual) Seg Neutrophils # Seg Neutrophils # Man Lymphocytes # (Manual) Monocytes # (Manual) PT APTT D-Dimer Heparin Anti-Xa Level ABG pH POC ABG pCO2 POC ABG pO2 ABG pO2 ABG Hemoglobin ABG Oxyhemoglobin ABG Sodium ABG Potassium ABG Chloride ABG Glucose Carboxyhemoglobin Sodium Potassium 5.7 H Chloride Carbon Dioxide BUN 57 H Creatinine Glucose 245 H POC Glucose 217 H Lactic Acid Calcium Phosphorus Magnesium Ferritin AST 99 H ALT 136 H Alkaline Phosphatase 312 H Lactate Dehydrogenase Troponin T C-Reactive Protein Total Protein 6.1 L Albumin 3.1 L HDL Cholesterol Arterial Blood Glucose Arterial Blood Ionized Calcium Urine WBC (Auto) Urine Creatinine 06/06/21 06/06/21 06/06/21 11:37 17:34 18:09 WBC RBC Hgb Hct MCV MCH MCHC RDW Burt % (Auto) Burt # (Auto) Seg Neutrophils % Seg Neuts % (Manual) Lymphocytes % (Manual) Monocytes % (Manual) Seg Neutrophils # Seg Neutrophils # Man Lymphocytes # (Manual) Monocytes # (Manual) PT APTT D-Dimer Heparin Anti-Xa Level ABG pH POC ABG pCO2 POC ABG pO2 ABG pO2 ABG Hemoglobin ABG Oxyhemoglobin ABG Sodium ABG Potassium ABG Chloride ABG Glucose Carboxyhemoglobin Sodium Potassium 5.2 H Chloride Carbon Dioxide BUN 48 H Creatinine Glucose 245 H POC Glucose 251 H 217 H Lactic Acid Calcium Phosphorus Magnesium Ferritin AST ALT Alkaline Phosphatase Lactate Dehydrogenase Troponin T C-Reactive Protein Total Protein Albumin HDL Cholesterol Arterial Blood Glucose Arterial Blood Ionized Calcium Urine WBC (Auto) Urine Creatinine 06/06/21 06/07/21 06/07/21 23:53 04:45 04:45 WBC 21.5 H RBC 2.71 L Hgb 9.0 L Hct 26.9 L MCV 99 H MCH 33 H MCHC RDW 15.3 H Burt % (Auto) Burt # (Auto) Seg Neutrophils % Seg Neuts % (Manual) Lymphocytes % (Manual) Monocytes % (Manual) Seg Neutrophils # Seg Neutrophils # Man Lymphocytes # (Manual) Monocytes # (Manual) PT APTT D-Dimer Heparin Anti-Xa Level 0.10 L ABG pH POC ABG pCO2 POC ABG pO2 ABG pO2 ABG Hemoglobin ABG Oxyhemoglobin ABG Sodium ABG Potassium ABG Chloride ABG Glucose Carboxyhemoglobin Sodium Potassium Chloride Carbon Dioxide BUN Creatinine Glucose POC Glucose 224 H Lactic Acid Calcium Phosphorus Magnesium Ferritin AST ALT Alkaline Phosphatase Lactate Dehydrogenase Troponin T C-Reactive Protein Total Protein Albumin HDL Cholesterol Arterial Blood Glucose Arterial Blood Ionized Calcium Urine WBC (Auto) Urine Creatinine 06/07/21 06/07/21 06/07/21 04:45 05:11 11:50 WBC RBC Hgb Hct MCV MCH MCHC RDW Burt % (Auto) Burt # (Auto) Seg Neutrophils % Seg Neuts % (Manual) Lymphocytes % (Manual) Monocytes % (Manual) Seg Neutrophils # Seg Neutrophils # Man Lymphocytes # (Manual) Monocytes # (Manual) PT APTT D-Dimer Heparin Anti-Xa Level ABG pH POC ABG pCO2 POC ABG pO2 ABG pO2 ABG Hemoglobin ABG Oxyhemoglobin ABG Sodium ABG Potassium ABG Chloride ABG Glucose Carboxyhemoglobin Sodium Potassium 5.4 H Chloride Carbon Dioxide BUN 55 H Creatinine Glucose 178 H POC Glucose 156 H 118 H Lactic Acid Calcium Phosphorus Magnesium Ferritin AST ALT Alkaline Phosphatase Lactate Dehydrogenase Troponin T C-Reactive Protein Total Protein Albumin HDL Cholesterol Arterial Blood Glucose Arterial Blood Ionized Calcium Urine WBC (Auto) Urine Creatinine 06/07/21 06/07/21 06/07/21 14:52 17:45 20:43 WBC RBC Hgb Hct MCV MCH MCHC RDW Burt % (Auto) Burt # (Auto) Seg Neutrophils % Seg Neuts % (Manual) Lymphocytes % (Manual) Monocytes % (Manual) Seg Neutrophils # Seg Neutrophils # Man Lymphocytes # (Manual) Monocytes # (Manual) PT APTT D-Dimer Heparin Anti-Xa Level 0.73 H ABG pH POC ABG pCO2 POC ABG pO2 ABG pO2 ABG Hemoglobin ABG Oxyhemoglobin ABG Sodium ABG Potassium ABG Chloride ABG Glucose Carboxyhemoglobin Sodium Potassium Chloride Carbon Dioxide BUN Creatinine Glucose POC Glucose 164 H Lactic Acid Calcium Phosphorus Magnesium Ferritin AST ALT Alkaline Phosphatase Lactate Dehydrogenase Troponin T C-Reactive Protein 28.90 H Total Protein Albumin HDL Cholesterol Arterial Blood Glucose Arterial Blood Ionized Calcium Urine WBC (Auto) Urine Creatinine 06/07/21 06/08/21 06/08/21 23:15 04:25 04:25 WBC 15.8 H RBC 2.58 L Hgb 8.6 L Hct 25.7 L MCV 100 H MCH 33 H MCHC RDW Burt % (Auto) Burt # (Auto) Seg Neutrophils % Seg Neuts % (Manual) 76.0 H Lymphocytes % (Manual) 6.0 L Monocytes % (Manual) 8.0 H Seg Neutrophils # Seg Neutrophils # Man 12.0 H Lymphocytes # (Manual) 0.9 L Monocytes # (Manual) 1.3 H PT APTT D-Dimer Heparin Anti-Xa Level ABG pH POC ABG pCO2 POC ABG pO2 ABG pO2 ABG Hemoglobin ABG Oxyhemoglobin ABG Sodium ABG Potassium ABG Chloride ABG Glucose Carboxyhemoglobin Sodium Potassium Chloride Carbon Dioxide BUN 65 H Creatinine Glucose 205 H POC Glucose 236 H Lactic Acid Calcium Phosphorus Magnesium Ferritin AST ALT Alkaline Phosphatase Lactate Dehydrogenase Troponin T C-Reactive Protein Total Protein Albumin HDL Cholesterol Arterial Blood Glucose Arterial Blood Ionized Calcium Urine WBC (Auto) Urine Creatinine 06/08/21 06/08/21 06/08/21 05:36 11:18 17:41 WBC RBC Hgb Hct MCV MCH MCHC RDW Burt % (Auto) Burt # (Auto) Seg Neutrophils % Seg Neuts % (Manual) Lymphocytes % (Manual) Monocytes % (Manual) Seg Neutrophils # Seg Neutrophils # Man Lymphocytes # (Manual) Monocytes # (Manual) PT APTT D-Dimer Heparin Anti-Xa Level ABG pH POC ABG pCO2 POC ABG pO2 ABG pO2 ABG Hemoglobin ABG Oxyhemoglobin ABG Sodium ABG Potassium ABG Chloride ABG Glucose Carboxyhemoglobin Sodium Potassium Chloride Carbon Dioxide BUN Creatinine Glucose POC Glucose 185 H 203 H 173 H Lactic Acid Calcium Phosphorus Magnesium Ferritin AST ALT Alkaline Phosphatase Lactate Dehydrogenase Troponin T C-Reactive Protein Total Protein Albumin HDL Cholesterol Arterial Blood Glucose Arterial Blood Ionized Calcium Urine WBC (Auto) Urine Creatinine 06/08/21 06/09/21 06/09/21 23:34 05:16 05:20 WBC 15.0 H RBC 2.54 L Hgb 8.5 L Hct 25.2 L MCV 99 H MCH 33 H MCHC RDW Burt % (Auto) Burt # (Auto) Seg Neutrophils % Seg Neuts % (Manual) Lymphocytes % (Manual) Monocytes % (Manual) Seg Neutrophils # Seg Neutrophils # Man Lymphocytes # (Manual) Monocytes # (Manual) PT APTT D-Dimer Heparin Anti-Xa Level ABG pH POC ABG pCO2 POC ABG pO2 ABG pO2 ABG Hemoglobin ABG Oxyhemoglobin ABG Sodium ABG Potassium ABG Chloride ABG Glucose Carboxyhemoglobin Sodium Potassium Chloride Carbon Dioxide BUN Creatinine Glucose POC Glucose 200 H 154 H Lactic Acid Calcium Phosphorus Magnesium Ferritin AST ALT Alkaline Phosphatase Lactate Dehydrogenase Troponin T C-Reactive Protein Total Protein Albumin HDL Cholesterol Arterial Blood Glucose Arterial Blood Ionized Calcium Urine WBC (Auto) Urine Creatinine 06/09/21 06/09/21 06/09/21 05:20 11:40 17:09 WBC RBC Hgb Hct MCV MCH MCHC RDW Burt % (Auto) Burt # (Auto) Seg Neutrophils % Seg Neuts % (Manual) Lymphocytes % (Manual) Monocytes % (Manual) Seg Neutrophils # Seg Neutrophils # Man Lymphocytes # (Manual) Monocytes # (Manual) PT APTT D-Dimer Heparin Anti-Xa Level ABG pH POC ABG pCO2 POC ABG pO2 ABG pO2 ABG Hemoglobin ABG Oxyhemoglobin ABG Sodium ABG Potassium ABG Chloride ABG Glucose Carboxyhemoglobin Sodium Potassium 5.2 H Chloride Carbon Dioxide BUN 69 H Creatinine Glucose 163 H POC Glucose 232 H 137 H Lactic Acid Calcium Phosphorus Magnesium Ferritin AST ALT Alkaline Phosphatase Lactate Dehydrogenase Troponin T C-Reactive Protein Total Protein Albumin HDL Cholesterol Arterial Blood Glucose Arterial Blood Ionized Calcium Urine WBC (Auto) Urine Creatinine 06/09/21 06/10/21 06/10/21 23:31 04:42 04:42 WBC 14.5 H RBC 2.41 L Hgb 8.2 L Hct 24.0 L MCV 100 H MCH 34 H MCHC RDW 15.8 H Burt % (Auto) Burt # (Auto) Seg Neutrophils % Seg Neuts % (Manual) Lymphocytes % (Manual) Monocytes % (Manual) Seg Neutrophils # Seg Neutrophils # Man Lymphocytes # (Manual) Monocytes # (Manual) PT APTT D-Dimer Heparin Anti-Xa Level ABG pH POC ABG pCO2 POC ABG pO2 ABG pO2 ABG Hemoglobin ABG Oxyhemoglobin ABG Sodium ABG Potassium ABG Chloride ABG Glucose Carboxyhemoglobin Sodium 146 H D Potassium 3.4 L D Chloride Carbon Dioxide BUN 62 H Creatinine Glucose 174 H POC Glucose 162 H Lactic Acid Calcium Phosphorus Magnesium Ferritin AST ALT Alkaline Phosphatase Lactate Dehydrogenase Troponin T C-Reactive Protein Total Protein Albumin HDL Cholesterol Arterial Blood Glucose Arterial Blood Ionized Calcium Urine WBC (Auto) Urine Creatinine 06/10/21 06/10/21 06/10/21 05:36 11:43 18:24 WBC RBC Hgb Hct MCV MCH MCHC RDW Burt % (Auto) Burt # (Auto) Seg Neutrophils % Seg Neuts % (Manual) Lymphocytes % (Manual) Monocytes % (Manual) Seg Neutrophils # Seg Neutrophils # Man Lymphocytes # (Manual) Monocytes # (Manual) PT APTT D-Dimer Heparin Anti-Xa Level ABG pH POC ABG pCO2 POC ABG pO2 ABG pO2 ABG Hemoglobin ABG Oxyhemoglobin ABG Sodium ABG Potassium ABG Chloride ABG Glucose Carboxyhemoglobin Sodium Potassium Chloride Carbon Dioxide BUN Creatinine Glucose POC Glucose 149 H 183 H 139 H Lactic Acid Calcium Phosphorus Magnesium Ferritin AST ALT Alkaline Phosphatase Lactate Dehydrogenase Troponin T C-Reactive Protein Total Protein Albumin HDL Cholesterol Arterial Blood Glucose Arterial Blood Ionized Calcium Urine WBC (Auto) Urine Creatinine 06/10/21 06/11/21 06/11/21 23:32 04:17 05:22 WBC RBC Hgb Hct MCV MCH MCHC RDW Burt % (Auto) Burt # (Auto) Seg Neutrophils % Seg Neuts % (Manual) Lymphocytes % (Manual) Monocytes % (Manual) Seg Neutrophils # Seg Neutrophils # Man Lymphocytes # (Manual) Monocytes # (Manual) PT APTT D-Dimer Heparin Anti-Xa Level 0.84 H ABG pH POC ABG pCO2 POC ABG pO2 ABG pO2 ABG Hemoglobin ABG Oxyhemoglobin ABG Sodium ABG Potassium ABG Chloride ABG Glucose Carboxyhemoglobin Sodium Potassium Chloride Carbon Dioxide BUN Creatinine Glucose POC Glucose 149 H 138 H Lactic Acid Calcium Phosphorus Magnesium Ferritin AST ALT Alkaline Phosphatase Lactate Dehydrogenase Troponin T C-Reactive Protein Total Protein Albumin HDL Cholesterol Arterial Blood Glucose Arterial Blood Ionized Calcium Urine WBC (Auto) Urine Creatinine 06/11/21 06/11/21 06/12/21 11:26 23:56 04:44 WBC 15.5 H RBC 2.59 L Hgb 8.6 L Hct 25.8 L MCV 100 H MCH 33 H MCHC RDW 15.3 H Burt % (Auto) Burt # (Auto) Seg Neutrophils % Seg Neuts % (Manual) Lymphocytes % (Manual) Monocytes % (Manual) Seg Neutrophils # Seg Neutrophils # Man Lymphocytes # (Manual) Monocytes # (Manual) PT APTT D-Dimer Heparin Anti-Xa Level ABG pH POC ABG pCO2 POC ABG pO2 ABG pO2 ABG Hemoglobin ABG Oxyhemoglobin ABG Sodium ABG Potassium ABG Chloride ABG Glucose Carboxyhemoglobin Sodium Potassium Chloride Carbon Dioxide BUN Creatinine Glucose POC Glucose 198 H 199 H Lactic Acid Calcium Phosphorus Magnesium Ferritin AST ALT Alkaline Phosphatase Lactate Dehydrogenase Troponin T C-Reactive Protein Total Protein Albumin HDL Cholesterol Arterial Blood Glucose Arterial Blood Ionized Calcium Urine WBC (Auto) Urine Creatinine 06/12/21 06/12/21 06/12/21 04:44 04:44 05:29 WBC RBC Hgb Hct MCV MCH MCHC RDW Burt % (Auto) Burt # (Auto) Seg Neutrophils % Seg Neuts % (Manual) Lymphocytes % (Manual) Monocytes % (Manual) Seg Neutrophils # Seg Neutrophils # Man Lymphocytes # (Manual) Monocytes # (Manual) PT APTT D-Dimer Heparin Anti-Xa Level ABG pH POC ABG pCO2 POC ABG pO2 ABG pO2 ABG Hemoglobin ABG Oxyhemoglobin ABG Sodium ABG Potassium ABG Chloride ABG Glucose Carboxyhemoglobin Sodium 148 H Potassium Chloride Carbon Dioxide BUN 49 H 51 H Creatinine Glucose 222 H 223 H POC Glucose 193 H Lactic Acid Calcium Phosphorus Magnesium 3.20 H Ferritin AST 81 H ALT 83 H Alkaline Phosphatase 215 H Lactate Dehydrogenase Troponin T C-Reactive Protein Total Protein Albumin 3.2 L HDL Cholesterol Arterial Blood Glucose Arterial Blood Ionized Calcium Urine WBC (Auto) Urine Creatinine 06/12/21 06/12/21 06/12/21 11:21 17:55 23:23 WBC RBC Hgb Hct MCV MCH MCHC RDW Burt % (Auto) Burt # (Auto) Seg Neutrophils % Seg Neuts % (Manual) Lymphocytes % (Manual) Monocytes % (Manual) Seg Neutrophils # Seg Neutrophils # Man Lymphocytes # (Manual) Monocytes # (Manual) PT APTT D-Dimer Heparin Anti-Xa Level ABG pH POC ABG pCO2 POC ABG pO2 ABG pO2 ABG Hemoglobin ABG Oxyhemoglobin ABG Sodium ABG Potassium ABG Chloride ABG Glucose Carboxyhemoglobin Sodium Potassium Chloride Carbon Dioxide BUN Creatinine Glucose POC Glucose 185 H 210 H 211 H Lactic Acid Calcium Phosphorus Magnesium Ferritin AST ALT Alkaline Phosphatase Lactate Dehydrogenase Troponin T C-Reactive Protein Total Protein Albumin HDL Cholesterol Arterial Blood Glucose Arterial Blood Ionized Calcium Urine WBC (Auto) Urine Creatinine 06/13/21 06/13/21 06/13/21 04:34 04:34 05:17 WBC 17.2 H RBC 2.56 L Hgb 8.6 L Hct 26.1 L MCV 102 H MCH 34 H MCHC RDW Burt % (Auto) Burt # (Auto) Seg Neutrophils % Seg Neuts % (Manual) Lymphocytes % (Manual) Monocytes % (Manual) Seg Neutrophils # Seg Neutrophils # Man Lymphocytes # (Manual) Monocytes # (Manual) PT APTT D-Dimer Heparin Anti-Xa Level ABG pH POC ABG pCO2 POC ABG pO2 ABG pO2 ABG Hemoglobin ABG Oxyhemoglobin ABG Sodium ABG Potassium ABG Chloride ABG Glucose Carboxyhemoglobin Sodium 149 H Potassium 5.1 H Chloride Carbon Dioxide BUN 52 H Creatinine 1.6 H Glucose 231 H POC Glucose 207 H Lactic Acid Calcium Phosphorus Magnesium Ferritin AST 69 H ALT 74 H Alkaline Phosphatase 197 H Lactate Dehydrogenase Troponin T C-Reactive Protein Total Protein Albumin 3.0 L HDL Cholesterol Arterial Blood Glucose Arterial Blood Ionized Calcium Urine WBC (Auto) Urine Creatinine 06/13/21 06/13/21 06/13/21 10:44 11:07 12:07 WBC RBC Hgb Hct MCV MCH MCHC RDW Burt % (Auto) Burt # (Auto) Seg Neutrophils % Seg Neuts % (Manual) Lymphocytes % (Manual) Monocytes % (Manual) Seg Neutrophils # Seg Neutrophils # Man Lymphocytes # (Manual) Monocytes # (Manual) PT APTT D-Dimer Heparin Anti-Xa Level < 0.10 L ABG pH 7.455 H POC ABG pCO2 POC ABG pO2 ABG pO2 ABG Hemoglobin 8.6 L ABG Oxyhemoglobin ABG Sodium ABG Potassium 4.7 H ABG Chloride ABG Glucose 277 H Carboxyhemoglobin Sodium Potassium Chloride Carbon Dioxide BUN Creatinine Glucose POC Glucose 241 H Lactic Acid Calcium Phosphorus Magnesium Ferritin AST ALT Alkaline Phosphatase Lactate Dehydrogenase Troponin T C-Reactive Protein Total Protein Albumin HDL Cholesterol Arterial Blood Glucose 277 H Arterial Blood Ionized Calcium Urine WBC (Auto) Urine Creatinine 06/13/21 06/13/21 06/13/21 17:35 21:13 23:19 WBC RBC Hgb Hct MCV MCH MCHC RDW Burt % (Auto) Burt # (Auto) Seg Neutrophils % Seg Neuts % (Manual) Lymphocytes % (Manual) Monocytes % (Manual) Seg Neutrophils # Seg Neutrophils # Man Lymphocytes # (Manual) Monocytes # (Manual) PT APTT D-Dimer Heparin Anti-Xa Level 0.92 H ABG pH POC ABG pCO2 POC ABG pO2 ABG pO2 ABG Hemoglobin ABG Oxyhemoglobin ABG Sodium ABG Potassium ABG Chloride ABG Glucose Carboxyhemoglobin Sodium Potassium Chloride Carbon Dioxide BUN Creatinine Glucose POC Glucose 233 H 232 H Lactic Acid Calcium Phosphorus Magnesium Ferritin AST ALT Alkaline Phosphatase Lactate Dehydrogenase Troponin T C-Reactive Protein Total Protein Albumin HDL Cholesterol Arterial Blood Glucose Arterial Blood Ionized Calcium Urine WBC (Auto) Urine Creatinine 06/14/21 06/14/21 06/14/21 04:21 04:21 05:36 WBC 15.6 H RBC 2.26 L Hgb 7.6 L Hct 22.9 L MCV 101 H MCH 34 H MCHC RDW 15.3 H Burt % (Auto) Burt # (Auto) Seg Neutrophils % Seg Neuts % (Manual) Lymphocytes % (Manual) Monocytes % (Manual) Seg Neutrophils # Seg Neutrophils # Man Lymphocytes # (Manual) Monocytes # (Manual) PT APTT D-Dimer Heparin Anti-Xa Level ABG pH POC ABG pCO2 POC ABG pO2 ABG pO2 ABG Hemoglobin ABG Oxyhemoglobin ABG Sodium ABG Potassium ABG Chloride ABG Glucose Carboxyhemoglobin Sodium 149 H Potassium Chloride 107.8 H Carbon Dioxide BUN 66 H Creatinine 1.8 H Glucose 192 H POC Glucose 166 H Lactic Acid Calcium Phosphorus Magnesium Ferritin AST ALT Alkaline Phosphatase Lactate Dehydrogenase Troponin T C-Reactive Protein Total Protein Albumin HDL Cholesterol Arterial Blood Glucose Arterial Blood Ionized Calcium Urine WBC (Auto) Urine Creatinine 06/14/21 06/14/21 06/14/21 12:21 17:07 23:14 WBC RBC Hgb Hct MCV MCH MCHC RDW Burt % (Auto) Burt # (Auto) Seg Neutrophils % Seg Neuts % (Manual) Lymphocytes % (Manual) Monocytes % (Manual) Seg Neutrophils # Seg Neutrophils # Man Lymphocytes # (Manual) Monocytes # (Manual) PT APTT D-Dimer Heparin Anti-Xa Level ABG pH POC ABG pCO2 POC ABG pO2 ABG pO2 ABG Hemoglobin ABG Oxyhemoglobin ABG Sodium ABG Potassium ABG Chloride ABG Glucose Carboxyhemoglobin Sodium Potassium Chloride Carbon Dioxide BUN Creatinine Glucose POC Glucose 190 H 172 H 195 H Lactic Acid Calcium Phosphorus Magnesium Ferritin AST ALT Alkaline Phosphatase Lactate Dehydrogenase Troponin T C-Reactive Protein Total Protein Albumin HDL Cholesterol Arterial Blood Glucose Arterial Blood Ionized Calcium Urine WBC (Auto) Urine Creatinine 06/15/21 06/15/21 06/15/21 05:08 05:08 05:47 WBC 15.3 H RBC 2.23 L Hgb 7.3 L Hct 22.5 L MCV 101 H MCH 33 H MCHC RDW Burt % (Auto) Burt # (Auto) Seg Neutrophils % Seg Neuts % (Manual) Lymphocytes % (Manual) Monocytes % (Manual) Seg Neutrophils # Seg Neutrophils # Man Lymphocytes # (Manual) Monocytes # (Manual) PT APTT D-Dimer Heparin Anti-Xa Level ABG pH POC ABG pCO2 POC ABG pO2 ABG pO2 ABG Hemoglobin ABG Oxyhemoglobin ABG Sodium ABG Potassium ABG Chloride ABG Glucose Carboxyhemoglobin Sodium 147 H Potassium Chloride Carbon Dioxide BUN 60 H Creatinine 1.6 H Glucose 158 H POC Glucose 150 H Lactic Acid Calcium 8.2 L Phosphorus 5.90 H Magnesium 3.20 H Ferritin AST ALT Alkaline Phosphatase Lactate Dehydrogenase Troponin T C-Reactive Protein Total Protein Albumin HDL Cholesterol Arterial Blood Glucose Arterial Blood Ionized Calcium Urine WBC (Auto) Urine Creatinine 06/15/21 06/15/21 06/15/21 10:19 11:25 17:47 WBC RBC Hgb Hct MCV MCH MCHC RDW Burt % (Auto) Burt # (Auto) Seg Neutrophils % Seg Neuts % (Manual) Lymphocytes % (Manual) Monocytes % (Manual) Seg Neutrophils # Seg Neutrophils # Man Lymphocytes # (Manual) Monocytes # (Manual) PT APTT D-Dimer Heparin Anti-Xa Level ABG pH 7.471 H POC ABG pCO2 POC ABG pO2 ABG pO2 ABG Hemoglobin ABG Oxyhemoglobin ABG Sodium ABG Potassium ABG Chloride ABG Glucose Carboxyhemoglobin Sodium Potassium Chloride Carbon Dioxide BUN Creatinine Glucose POC Glucose 133 H 201 H Lactic Acid Calcium Phosphorus Magnesium Ferritin AST ALT Alkaline Phosphatase Lactate Dehydrogenase Troponin T C-Reactive Protein Total Protein Albumin HDL Cholesterol Arterial Blood Glucose Arterial Blood Ionized Calcium Urine WBC (Auto) Urine Creatinine 06/15/21 06/15/21 06/16/21 23:43 Unknown 04:31 WBC 13.8 H RBC 2.23 L Hgb 7.5 L Hct 22.4 L MCV 101 H MCH 34 H MCHC RDW Burt % (Auto) Burt # (Auto) Seg Neutrophils % Seg Neuts % (Manual) Lymphocytes % (Manual) Monocytes % (Manual) Seg Neutrophils # Seg Neutrophils # Man Lymphocytes # (Manual) Monocytes # (Manual) PT APTT D-Dimer Heparin Anti-Xa Level ABG pH POC ABG pCO2 POC ABG pO2 ABG pO2 ABG Hemoglobin ABG Oxyhemoglobin ABG Sodium ABG Potassium ABG Chloride ABG Glucose Carboxyhemoglobin Sodium Potassium Chloride Carbon Dioxide BUN Creatinine Glucose POC Glucose 148 H Lactic Acid Calcium Phosphorus Magnesium Ferritin AST ALT Alkaline Phosphatase Lactate Dehydrogenase Troponin T C-Reactive Protein Total Protein Albumin HDL Cholesterol Arterial Blood Glucose Arterial Blood Ionized Calcium Urine WBC (Auto) Urine Creatinine 74.7 H 06/16/21 06/16/21 06/16/21 04:31 05:48 11:47 WBC RBC Hgb Hct MCV MCH MCHC RDW Burt % (Auto) Burt # (Auto) Seg Neutrophils % Seg Neuts % (Manual) Lymphocytes % (Manual) Monocytes % (Manual) Seg Neutrophils # Seg Neutrophils # Man Lymphocytes # (Manual) Monocytes # (Manual) PT APTT D-Dimer Heparin Anti-Xa Level ABG pH POC ABG pCO2 POC ABG pO2 ABG pO2 ABG Hemoglobin ABG Oxyhemoglobin ABG Sodium ABG Potassium ABG Chloride ABG Glucose Carboxyhemoglobin Sodium Potassium Chloride Carbon Dioxide BUN 49 H Creatinine 1.3 H Glucose 194 H POC Glucose 184 H 190 H Lactic Acid Calcium Phosphorus 5.40 H Magnesium 2.90 H Ferritin AST ALT Alkaline Phosphatase Lactate Dehydrogenase Troponin T C-Reactive Protein Total Protein Albumin HDL Cholesterol Arterial Blood Glucose Arterial Blood Ionized Calcium Urine WBC (Auto) Urine Creatinine 06/16/21 06/16/21 06/16/21 18:51 18:51 23:13 WBC 12.4 H RBC 2.22 L Hgb 7.3 L Hct 22.4 L MCV 101 H MCH 33 H MCHC RDW Burt % (Auto) Burt # (Auto) Seg Neutrophils % Seg Neuts % (Manual) Lymphocytes % (Manual) Monocytes % (Manual) Seg Neutrophils # Seg Neutrophils # Man Lymphocytes # (Manual) Monocytes # (Manual) PT APTT 64.1 H* D-Dimer Heparin Anti-Xa Level ABG pH POC ABG pCO2 POC ABG pO2 ABG pO2 ABG Hemoglobin ABG Oxyhemoglobin ABG Sodium ABG Potassium ABG Chloride ABG Glucose Carboxyhemoglobin Sodium Potassium Chloride Carbon Dioxide BUN Creatinine Glucose POC Glucose 160 H Lactic Acid Calcium Phosphorus Magnesium Ferritin AST ALT Alkaline Phosphatase Lactate Dehydrogenase Troponin T C-Reactive Protein Total Protein Albumin HDL Cholesterol Arterial Blood Glucose Arterial Blood Ionized Calcium Urine WBC (Auto) Urine Creatinine 06/17/21 06/17/21 06/17/21 04:19 05:02 11:56 WBC RBC Hgb Hct MCV MCH MCHC RDW Burt % (Auto) Burt # (Auto) Seg Neutrophils % Seg Neuts % (Manual) Lymphocytes % (Manual) Monocytes % (Manual) Seg Neutrophils # Seg Neutrophils # Man Lymphocytes # (Manual) Monocytes # (Manual) PT APTT D-Dimer Heparin Anti-Xa Level 1.53 H ABG pH POC ABG pCO2 POC ABG pO2 ABG pO2 ABG Hemoglobin ABG Oxyhemoglobin ABG Sodium ABG Potassium ABG Chloride ABG Glucose Carboxyhemoglobin Sodium Potassium Chloride Carbon Dioxide BUN Creatinine Glucose POC Glucose 167 H 166 H Lactic Acid Calcium Phosphorus Magnesium Ferritin AST ALT Alkaline Phosphatase Lactate Dehydrogenase Troponin T C-Reactive Protein Total Protein Albumin HDL Cholesterol Arterial Blood Glucose Arterial Blood Ionized Calcium Urine WBC (Auto) Urine Creatinine 06/17/21 06/17/21 06/17/21 17:48 22:42 23:08 WBC RBC Hgb Hct MCV MCH MCHC RDW Burt % (Auto) Burt # (Auto) Seg Neutrophils % Seg Neuts % (Manual) Lymphocytes % (Manual) Monocytes % (Manual) Seg Neutrophils # Seg Neutrophils # Man Lymphocytes # (Manual) Monocytes # (Manual) PT APTT D-Dimer Heparin Anti-Xa Level ABG pH POC ABG pCO2 POC ABG pO2 ABG pO2 ABG Hemoglobin ABG Oxyhemoglobin ABG Sodium ABG Potassium ABG Chloride ABG Glucose Carboxyhemoglobin Sodium Potassium Chloride Carbon Dioxide BUN Creatinine Glucose POC Glucose 159 H 122 H 114 H Lactic Acid Calcium Phosphorus Magnesium Ferritin AST ALT Alkaline Phosphatase Lactate Dehydrogenase Troponin T C-Reactive Protein Total Protein Albumin HDL Cholesterol Arterial Blood Glucose Arterial Blood Ionized Calcium Urine WBC (Auto) Urine Creatinine 06/18/21 06/18/21 06/18/21 05:40 06:20 13:11 WBC RBC 2.19 L Hgb 7.3 L Hct 21.9 L MCV 100 H MCH 33 H MCHC RDW Burt % (Auto) Burt # (Auto) Seg Neutrophils % Seg Neuts % (Manual) Lymphocytes % (Manual) Monocytes % (Manual) Seg Neutrophils # Seg Neutrophils # Man Lymphocytes # (Manual) Monocytes # (Manual) PT APTT D-Dimer Heparin Anti-Xa Level ABG pH POC ABG pCO2 POC ABG pO2 ABG pO2 ABG Hemoglobin ABG Oxyhemoglobin ABG Sodium ABG Potassium ABG Chloride ABG Glucose Carboxyhemoglobin Sodium Potassium Chloride Carbon Dioxide BUN Creatinine Glucose POC Glucose 174 H 149 H Lactic Acid Calcium Phosphorus Magnesium Ferritin AST ALT Alkaline Phosphatase Lactate Dehydrogenase Troponin T C-Reactive Protein Total Protein Albumin HDL Cholesterol Arterial Blood Glucose Arterial Blood Ionized Calcium Urine WBC (Auto) Urine Creatinine 06/18/21 06/18/21 06/18/21 18:50 21:45 23:12 WBC RBC Hgb Hct MCV MCH MCHC RDW Burt % (Auto) Burt # (Auto) Seg Neutrophils % Seg Neuts % (Manual) Lymphocytes % (Manual) Monocytes % (Manual) Seg Neutrophils # Seg Neutrophils # Man Lymphocytes # (Manual) Monocytes # (Manual) PT APTT D-Dimer Heparin Anti-Xa Level ABG pH POC ABG pCO2 POC ABG pO2 ABG pO2 ABG Hemoglobin ABG Oxyhemoglobin ABG Sodium ABG Potassium ABG Chloride ABG Glucose Carboxyhemoglobin Sodium Potassium Chloride Carbon Dioxide BUN Creatinine Glucose POC Glucose 152 H 151 H 178 H Lactic Acid Calcium Phosphorus Magnesium Ferritin AST ALT Alkaline Phosphatase Lactate Dehydrogenase Troponin T C-Reactive Protein Total Protein Albumin HDL Cholesterol Arterial Blood Glucose Arterial Blood Ionized Calcium Urine WBC (Auto) Urine Creatinine 06/19/21 06/19/21 06/19/21 06:20 06:20 11:54 WBC RBC 2.19 L Hgb 7.4 L Hct 22.2 L MCV 102 H MCH 34 H MCHC RDW Burt % (Auto) 11.3 H Burt # (Auto) 1.0 H Seg Neutrophils % Seg Neuts % (Manual) Lymphocytes % (Manual) Monocytes % (Manual) Seg Neutrophils # Seg Neutrophils # Man Lymphocytes # (Manual) Monocytes # (Manual) PT APTT D-Dimer Heparin Anti-Xa Level ABG pH POC ABG pCO2 POC ABG pO2 ABG pO2 ABG Hemoglobin ABG Oxyhemoglobin ABG Sodium ABG Potassium ABG Chloride ABG Glucose Carboxyhemoglobin Sodium 148 H Potassium Chloride 109.4 H Carbon Dioxide BUN 26 H Creatinine Glucose 109 H POC Glucose 131 H Lactic Acid Calcium Phosphorus Magnesium 2.40 H Ferritin AST ALT Alkaline Phosphatase Lactate Dehydrogenase Troponin T C-Reactive Protein Total Protein Albumin HDL Cholesterol Arterial Blood Glucose Arterial Blood Ionized Calcium Urine WBC (Auto) Urine Creatinine 06/19/21 06/19/21 06/19/21 17:21 21:31 23:13 WBC RBC Hgb Hct MCV MCH MCHC RDW Burt % (Auto) Burt # (Auto) Seg Neutrophils % Seg Neuts % (Manual) Lymphocytes % (Manual) Monocytes % (Manual) Seg Neutrophils # Seg Neutrophils # Man Lymphocytes # (Manual) Monocytes # (Manual) PT APTT D-Dimer Heparin Anti-Xa Level ABG pH POC ABG pCO2 POC ABG pO2 ABG pO2 ABG Hemoglobin ABG Oxyhemoglobin ABG Sodium ABG Potassium ABG Chloride ABG Glucose Carboxyhemoglobin Sodium Potassium Chloride Carbon Dioxide BUN Creatinine Glucose POC Glucose 178 H 174 H 216 H Lactic Acid Calcium Phosphorus Magnesium Ferritin AST ALT Alkaline Phosphatase Lactate Dehydrogenase Troponin T C-Reactive Protein Total Protein Albumin HDL Cholesterol Arterial Blood Glucose Arterial Blood Ionized Calcium Urine WBC (Auto) Urine Creatinine 06/20/21 06/20/21 06/20/21 04:18 05:15 11:22 WBC RBC 2.26 L Hgb 7.7 L Hct 22.9 L MCV 101 H MCH 34 H MCHC RDW Burt % (Auto) Burt # (Auto) Seg Neutrophils % Seg Neuts % (Manual) Lymphocytes % (Manual) Monocytes % (Manual) Seg Neutrophils # Seg Neutrophils # Man Lymphocytes # (Manual) Monocytes # (Manual) PT APTT D-Dimer Heparin Anti-Xa Level ABG pH POC ABG pCO2 POC ABG pO2 ABG pO2 ABG Hemoglobin ABG Oxyhemoglobin ABG Sodium ABG Potassium ABG Chloride ABG Glucose Carboxyhemoglobin Sodium Potassium Chloride Carbon Dioxide BUN Creatinine Glucose POC Glucose 119 H 177 H Lactic Acid Calcium Phosphorus Magnesium Ferritin AST ALT Alkaline Phosphatase Lactate Dehydrogenase Troponin T C-Reactive Protein Total Protein Albumin HDL Cholesterol Arterial Blood Glucose Arterial Blood Ionized Calcium Urine WBC (Auto) Urine Creatinine 10/08/2906/20/21 06/20/21 13:30 17:58 21:24 WBC RBC Hgb Hct MCV MCH MCHC RDW Burt % (Auto) Burt # (Auto) Seg Neutrophils % Seg Neuts % (Manual) Lymphocytes % (Manual) Monocytes % (Manual) Seg Neutrophils # Seg Neutrophils # Man Lymphocytes # (Manual) Monocytes # (Manual) PT APTT D-Dimer Heparin Anti-Xa Level ABG pH POC ABG pCO2 POC ABG pO2 ABG pO2 ABG Hemoglobin ABG Oxyhemoglobin ABG Sodium ABG Potassium ABG Chloride ABG Glucose Carboxyhemoglobin Sodium Potassium Chloride Carbon Dioxide BUN 31 H Creatinine Glucose 196 H POC Glucose 151 H 141 H Lactic Acid Calcium Phosphorus Magnesium Ferritin AST ALT Alkaline Phosphatase Lactate Dehydrogenase Troponin T C-Reactive Protein Total Protein Albumin HDL Cholesterol Arterial Blood Glucose Arterial Blood Ionized Calcium Urine WBC (Auto) Urine Creatinine 06/20/21 06/21/21 06/21/21 23:46 04:07 04:59 WBC RBC Hgb Hct MCV MCH MCHC RDW Burt % (Auto) Burt # (Auto) Seg Neutrophils % Seg Neuts % (Manual) Lymphocytes % (Manual) Monocytes % (Manual) Seg Neutrophils # Seg Neutrophils # Man Lymphocytes # (Manual) Monocytes # (Manual) PT APTT D-Dimer Heparin Anti-Xa Level ABG pH POC ABG pCO2 POC ABG pO2 ABG pO2 ABG Hemoglobin ABG Oxyhemoglobin ABG Sodium ABG Potassium ABG Chloride ABG Glucose Carboxyhemoglobin Sodium Potassium Chloride Carbon Dioxide BUN 36 H Creatinine Glucose 220 H POC Glucose 137 H 213 H Lactic Acid Calcium Phosphorus Magnesium Ferritin AST 79 H ALT 79 H Alkaline Phosphatase 159 H Lactate Dehydrogenase Troponin T C-Reactive Protein Total Protein Albumin 2.6 L HDL Cholesterol Arterial Blood Glucose Arterial Blood Ionized Calcium Urine WBC (Auto) Urine Creatinine 06/21/21 06/21/21 06/21/21 08:10 11:45 17:18 WBC RBC 2.13 L Hgb 7.4 L Hct 21.1 L MCV 99 H MCH 35 H MCHC 35 H RDW Burt % (Auto) 9.3 H Burt # (Auto) 0.9 H Seg Neutrophils % Seg Neuts % (Manual) Lymphocytes % (Manual) Monocytes % (Manual) Seg Neutrophils # Seg Neutrophils # Man Lymphocytes # (Manual) Monocytes # (Manual) PT APTT D-Dimer Heparin Anti-Xa Level ABG pH POC ABG pCO2 POC ABG pO2 ABG pO2 ABG Hemoglobin ABG Oxyhemoglobin ABG Sodium ABG Potassium ABG Chloride ABG Glucose Carboxyhemoglobin Sodium Potassium Chloride Carbon Dioxide BUN Creatinine Glucose POC Glucose 176 H 129 H Lactic Acid Calcium Phosphorus Magnesium Ferritin AST ALT Alkaline Phosphatase Lactate Dehydrogenase Troponin T C-Reactive Protein Total Protein Albumin HDL Cholesterol Arterial Blood Glucose Arterial Blood Ionized Calcium Urine WBC (Auto) Urine Creatinine 06/21/21 06/22/21 06/22/21 23:02 04:36 04:36 WBC RBC 2.38 L Hgb 8.0 L Hct 23.7 L MCV 100 H MCH 33 H MCHC RDW Burt % (Auto) Burt # (Auto) Seg Neutrophils % Seg Neuts % (Manual) Lymphocytes % (Manual) Monocytes % (Manual) Seg Neutrophils # Seg Neutrophils # Man Lymphocytes # (Manual) Monocytes # (Manual) PT APTT D-Dimer Heparin Anti-Xa Level ABG pH POC ABG pCO2 POC ABG pO2 ABG pO2 ABG Hemoglobin ABG Oxyhemoglobin ABG Sodium ABG Potassium ABG Chloride ABG Glucose Carboxyhemoglobin Sodium Potassium Chloride Carbon Dioxide BUN 36 H Creatinine Glucose 167 H POC Glucose 111 H Lactic Acid Calcium Phosphorus Magnesium Ferritin AST ALT Alkaline Phosphatase Lactate Dehydrogenase Troponin T C-Reactive Protein Total Protein Albumin HDL Cholesterol Arterial Blood Glucose Arterial Blood Ionized Calcium Urine WBC (Auto) Urine Creatinine 06/22/21 06/22/21 06/22/21 05:22 12:12 18:17 WBC RBC Hgb Hct MCV MCH MCHC RDW Burt % (Auto) Burt # (Auto) Seg Neutrophils % Seg Neuts % (Manual) Lymphocytes % (Manual) Monocytes % (Manual) Seg Neutrophils # Seg Neutrophils # Man Lymphocytes # (Manual) Monocytes # (Manual) PT APTT D-Dimer Heparin Anti-Xa Level ABG pH POC ABG pCO2 POC ABG pO2 ABG pO2 ABG Hemoglobin ABG Oxyhemoglobin ABG Sodium ABG Potassium ABG Chloride ABG Glucose Carboxyhemoglobin Sodium Potassium Chloride Carbon Dioxide BUN Creatinine Glucose POC Glucose 160 H 176 H 161 H Lactic Acid Calcium Phosphorus Magnesium Ferritin AST ALT Alkaline Phosphatase Lactate Dehydrogenase Troponin T C-Reactive Protein Total Protein Albumin HDL Cholesterol Arterial Blood Glucose Arterial Blood Ionized Calcium Urine WBC (Auto) Urine Creatinine 06/22/21 06/22/21 06/23/21 21:30 22:29 04:00 WBC RBC 2.22 L Hgb 7.5 L Hct 22.4 L MCV 101 H MCH 34 H MCHC RDW Burt % (Auto) Burt # (Auto) Seg Neutrophils % Seg Neuts % (Manual) Lymphocytes % (Manual) Monocytes % (Manual) Seg Neutrophils # Seg Neutrophils # Man Lymphocytes # (Manual) Monocytes # (Manual) PT APTT D-Dimer Heparin Anti-Xa Level ABG pH POC ABG pCO2 POC ABG pO2 ABG pO2 ABG Hemoglobin ABG Oxyhemoglobin ABG Sodium ABG Potassium ABG Chloride ABG Glucose Carboxyhemoglobin Sodium Potassium Chloride Carbon Dioxide BUN Creatinine Glucose POC Glucose 175 H 222 H Lactic Acid Calcium Phosphorus Magnesium Ferritin AST ALT Alkaline Phosphatase Lactate Dehydrogenase Troponin T C-Reactive Protein Total Protein Albumin HDL Cholesterol Arterial Blood Glucose Arterial Blood Ionized Calcium Urine WBC (Auto) Urine Creatinine 06/23/21 06/23/21 06/23/21 04:00 05:09 10:50 WBC RBC Hgb Hct MCV MCH MCHC RDW Burt % (Auto) Burt # (Auto) Seg Neutrophils % Seg Neuts % (Manual) Lymphocytes % (Manual) Monocytes % (Manual) Seg Neutrophils # Seg Neutrophils # Man Lymphocytes # (Manual) Monocytes # (Manual) PT APTT D-Dimer Heparin Anti-Xa Level ABG pH 7.484 H POC ABG pCO2 POC ABG pO2 ABG pO2 ABG Hemoglobin 7.1 L ABG Oxyhemoglobin ABG Sodium ABG Potassium 4.6 H ABG Chloride ABG Glucose 158 H Carboxyhemoglobin Sodium Potassium 5.2 H Chloride Carbon Dioxide BUN 43 H Creatinine 1.3 H Glucose 237 H POC Glucose 212 H Lactic Acid Calcium Phosphorus Magnesium Ferritin AST ALT Alkaline Phosphatase Lactate Dehydrogenase Troponin T C-Reactive Protein Total Protein Albumin HDL Cholesterol Arterial Blood Glucose 158 H Arterial Blood Ionized Calcium 4.3 L Urine WBC (Auto) Urine Creatinine 06/23/21 12:16 WBC RBC Hgb Hct MCV MCH MCHC RDW Burt % (Auto) Burt # (Auto) Seg Neutrophils % Seg Neuts % (Manual) Lymphocytes % (Manual) Monocytes % (Manual) Seg Neutrophils # Seg Neutrophils # Man Lymphocytes # (Manual) Monocytes # (Manual) PT APTT D-Dimer Heparin Anti-Xa Level ABG pH POC ABG pCO2 POC ABG pO2 ABG pO2 ABG Hemoglobin ABG Oxyhemoglobin ABG Sodium ABG Potassium ABG Chloride ABG Glucose Carboxyhemoglobin Sodium Potassium Chloride Carbon Dioxide BUN Creatinine Glucose POC Glucose 144 H Lactic Acid Calcium Phosphorus Magnesium Ferritin AST ALT Alkaline Phosphatase Lactate Dehydrogenase Troponin T C-Reactive Protein Total Protein Albumin HDL Cholesterol Arterial Blood Glucose Arterial Blood Ionized Calcium Urine WBC (Auto) Urine Creatinine Chest x-ray: image reviewed Allied health notes reviewed: RT
[2021-06-23] MEDS ORDERED: SODIUM POLYSTYRENE 15 GM/60 ML ORAL LIQD PO SCH (13:30)
--- NOTE | 2021-06-23 13:35 | Progress Note ---
<TOBIAS QUIROS - Last Filed: 06/23/21 16:58> Assessment and Plan Assessment and plan: This is a 65 year old female with HTN, nonepileptic spells, PTSD, close head injury, DM, CAD s/p stents and SD, independence, hyperlipidemia admitted with sepsis, pneumonia, acute proximal respiratory failure, toxic metabolic encephalo jaky, suspected anoxic brain injury, metabolic acidosis Hospital Course to Date: 05/26/21: Updated family at the bedside, Covid test is negative. Will order EEG and neuro consult. Remains intubated, follow clinically. Sedated on Midazolam and Propofol, just received one dose of Lorazepam for witnessed seizure by RN. NSR now, on heparin drip 05/27/21; remains intubated. pending EEG and neuro eval. wean off vent as tolerated. Continue heparin drip per cardiology, replete potassium yesterday, follow BMP. BP noted to be elevated, next started on antihypertensives. 05/28/21; BP noted to be elevated, initiated on antihypertensive, remains intubated. Pending neurology evaluation and EEG. Continue supportive care, follow BMP. 05/29/21: Ordered for MRI brain, continue Keppra, pending EEG. Appreciate neuro recommendation. follow BMP, tolerating TF 05/30/21: Patient remains intubated, pending MRI brain, follow neurology recommendation. EEG showed diffuse slowing. 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 off sedation now, cont to follow. gurded prognosis 06/01: MRI was suggestive of watershed infarct bilaterally and was seen by neurology and recommend to do MRI with gadolinium. Patient is off sedation and still unresponsive. Prognosis is guarded. 06/02: Continue current management. Prognosis is guarded. Patient needs trach. 06/03: Patient is unresponsive spite of all sedatives. Prognosis is guarded to poor. Neurology consult appreciated. 06/04: Patient is unresponsive. Patient is off sedatives. Blood sugar is uncontrolled and I adjusted her insulin. Neurology consult appreciated. Prognosis is guarded to poor. 06/05/21- Patient remains ETT and on vent support. Off sedation with some improvement in neuro status, but is not following commands. Patient is tolerating SBT trial this am, still on the heparin gtt. AM labs is pending. Patient is still hyperglycemic, increased Qhs lantus. Continue supportive care. 06/06/21- Patient is intubated and on the vent. No longer on sedation, awake but unresponsive, tolerating SBT. Hyperglycemia this am, X1 dose of kayaxalate orderd. Persistent hyperglycemia, insulin adjusted. Continue to monitor electrolytes, repeat BMP this afternoon and am labs ordered. 06/07/21- Patient remains intubated and on the vent. Neuro status is unchanged, spontaneously open yes but is not following commands. SBT trial again, plan to place back on a rate overnight. Leukocytosis noted from this morning lab, stat procalc and CRP ordered, d/w CCM no abx at this time. K 5.4 today, kayalalxate given. Continue to monitor leukocytosis and electrolytes. Am labs ordered 06/08/21- Patient remains intubated and on the vent with no significant change in her neuro status. Patient with no BM in 7days, abdominal soft with positive bowel sounds, colace added and PRN ducolax Supp PRN. Continue to monitor leukocytosis and electrolytes, am labs ordered. Plan for trach and PEG, surgery consulted. 06/09/21- Patient remains stable, intubated with no significant change in neuro status. Trach and Peg cancelled for today. Plan for possibly next week. Hyperkalemia again today, chart review for possible meds interaction. X1 dose of kayexalate ordered. Still no BM today. Episode of emesis today, TF held and NGT to LIS until tommorrow. Orders place for KUB today and Chest XR for the morning. Morning labs ordered. 06/10: Continue supportive care. Trach and PEG planned for early next week. KUB and x-ray with no significant change. Opacity still persist. Critical care management noted. Patient still persistent leukocytosis we will continue to monitor mild hypokalemia noted will replace with potassium. Also noted mild hypernatremia. Agree with holding tube feeds at this time 06/11: Discussed with nursing staff to change to history trickle feeds. Patient is planned for trach and PEG Saturday or Saturday. Continue current management also discussed to hold heparin drip for planned procedure with noted timeframe. We will recheck labs to ensure correction of electrolytes. 06/12/21- Patient's status is unchanged. No significant events overnight. Plan for trach and PEG today. TF and heparin gtt on hold. Continue supportive care. Continue to monitor electrolytes, am labs ordered. 06/13/21- Patient is s/p trach and PEG. D/w surgery okay to use PEGTube and restart TF. Heparin gtt was also restarted per protocol. Persistent hypernatremia and FWF increased for 48hrs, mild hyperkalemia noted no intervention at this time. Continue to monitor renal function and electrolytes, am labs ordered. 06/14: Transition to PO anticoagulation from heparin gtt tomorrow. plan to place on tpiece tomorrow. 06/15: Patient spiked a temp today and was root cultured, h/h decreasing and stool occult ordered. Increase in insulin. T piece trials today. Small volume emesis x2 06/16; patient is on T-piece, On heparin drip for A. fib, will transition to Eliquis , I discussed the case with tariff expert 06/17; tracheal cultures positive for gram-negative rods, ordered cefepime, f ollow cultures Consider ID consult 06/18 no significant change, patient receiving cefepime[sputum cultures gram- negative rods] Follow sensitivities, ID if needed 06/19- Patient was place on Tpiece this morning, plan for Tpiece for 12hrs and rest on the vent overnight. Patient remains afebrile, leukocytosis improved, and patient remains on empiric IV abx. D/W CCM possible ID consult if worsen. 06/20- No significant change in patient status. Patient is tolerating Tpiece, plan to rest on the vent overnight. Patient TMAX 99.8, leukocytosis remains stable, cefepine transition to Rocephin for +Ecoli in sputum. Consider ID consult if febrile. Will continue to monitor, am labs ordered 06/21- Patient remains stable on the vent, continue daily tpiece trial for 12 hrs then rest on the vent at night. Low grade temp noted TMAx 100.7, d/w CCM ID consult placed for further recommendations. Continue current IV abx for now. Will continue to monitor, am labs ordered. 06/22- Patient is tolerating tpiece @28% and 6L, SPO2 @100%. Vomited yesterday, KUB and CXR are unremarkable, reglan added Q8hrs. Plan to stay on Tpiece overnight, repeat ABG at 2100. Will continue to monitor 06/23- Patient tolerated Tpiece for over 24hrs, today's ABG noted, d/w [facility] patient is stable to be transfer to telemetry. Slight hyperkalemia noted, X1 dose of kayaxalate ordered, renal function remains stable. Per case management, patient was denied for LTACH and Rehab, plan for possible SNF placement at this time. Continue to monitor renal function and electrolytes. Assessment and Plan Neuro: Toxic metabolic encephalopathy, likely anoxic brain injury, tonic-cloninc seziure; h/o nonepileptic spells, PTSD, closed head injury -Neurology consulted, appreciate recommendations -CT head completed->see results, without acute or large territorial infarct -Per neurology: MRI brain is suggestive of water shed Infarct Bilateral -- mostly related to Hypoperfusion -06/01 repeat MRI brain noted, possible subacute ischemic changes. -Intact cough/gag, pupils sluggish -Keppra -EEG showed no signs of seizure -prn ativan -Patient is off sedation, open eyes spontaneously, pupils reactive, with +gag and cough. -Not following commands, no movement to stimuli Cardio: S/p cardiac arrest, A. fib with RVR, h/o HTN -Currently on Labetalol, Hydralazine, valsartan, & Doxazosin -PRN hydral IV -Cardiology consulted, appreciate recommendations -05/2020 dobutamine thallium stress test showed normal perfusion study. -05/2020 echo showed normal left ventricular systolic function. -NIBP per protocol Resp: Acute hypoxic respiratory failure -[facility] consulted, appreciate recommendations - s/p trach on 06/12 -06/15 T piece trials started, currently on T-piece -Tolerated Tpiece trial for over 24hrs -ABG/CXR per [facility] -Continuous SP02 monitoring for SPO2 above 92% -Scopalamine and robinul for secretions -VAP bundle -Okay to transfer to Telemetry per [facility] GI: Vomiting; protein -aspen malnutrition -Ntr consult for TF -PEG placed 06/12 - 06/22 KUB with no acute abnormality -PPI- Pepcid -BR: senokot, maalox, colace; prn dulcolax -BM: 06/22 : Acute renal injury likely 2/2 to vasomotor nephrology -Renal function remains stable -strict I&O -daily weights -purwick -Trend BMP -Monitor and replete electrolytes as needed -FWF 100 q 4hours -hypernatremia and Cr slightly improving Endo: Hyperglycemia, h/o DM -SSI -Lantus, titrate as needed -Avoid hypoglycemia -accucheck q6 Heme: Leukocytosis -CTA chest without evidence of PE -IV heparin d/t afib -transitioned to PO Eliquis -Trend CBC -Transfuse for hgb<7 ID: Sepsis, Bilateral Lower Lobe Infiltrates -COVID 19 PCR (-) -s/p cefepime 05/25-05/29 -admit cxr with infiltrates, CTA chest with dense dependent consolidation/ate lectasis in lungs -Monitor temp and WBC curve -noted spike in temp overnight -CXR, Blood culture, UA, 06/19Sputum culture pos. Ecoli -BC/UC/Tracheal aspirate NGTD from 05/25 -Covid 19 PCR negative -06/07 CRP 28.90 and procal 0.36 -Tracheal aspirate gram-negative rods, empiric antibiotics cefepime ordered, follow culture sensitivities - Cefepine switch to rocephin per sensitivity -Consider ID evaluation if febrile The high probability of a clinically significant, sudden or life threatening deterioration of the [multiple] system(s) required my full and direct attention, intervention and personal management. The aggregate critical care time was [60] minutes. This time is in addition to time spent performing reported procedures but includes the following: [x] Data Review and interpretation [x] Patient assessment and monitoring of vital signs [x] Documentation [x] Medication orders and management Disposition Plan: LTACH pending Total Time Spent with Patient (Minutes): 60 History Interval history: Patient seen and examined at the bedside. Neuro status unchanged, awake and opening eyes spontaneously, but not following any commands. Tolerated Tpiece trial for over 24hrs. No significant events overnight Hospitalist Physical - Constitutional Vitals: Temp Pulse Resp BP Pulse Ox 98.6 F 83 25 H 155/66 100 06/23/21 07:24 06/23/21 13:00 06/23/21 13:00 06/23/21 13:00 06/23/21 13:00 General appearance: Present: no acute distress, well-nourished - EENT Eyes: Present: PERRL - Respiratory Respiratory effort: normal Respiratory: bilateral: diminished - Cardiovascular Rhythm: regular Heart Sounds: Present: S1 & S2 - Extremities Extremities: no ischemia, pulses intact, pulses symmetrical Extremity abnormal: edema - Peripheral Assessment Generalized Edema Type: Non-pitting Edema Degree: 1+ Capillary Refill: < 3 seconds Skin Temperature: Warm Peripheral Pulses: within normal limits - Abdominal General gastrointestinal: soft, non-tender, normal bowel sounds - Integumentary Integumentary: Present: clear, warm, dry - Psychiatric Psychiatric: other ([facility]) - Neurologic Neurologic: other ([facility]) - Allied Health Allied health notes reviewed: nursing HEART Score - HEART Score Troponin: Troponin T 0.226 ng/mL (0.00-0.029) H* D 05/25/21 15:19 Results - Labs CBC & Chem 7: 06/23/21 04:00 06/23/21 04:00 Labs: Laboratory Last Values WBC 8.4 K/mm3 (4.5-11.0) 06/23/21 04:00 RBC 2.22 M/mm3 (3.65-5.03) L 06/23/21 04:00 Hgb 7.5 gm/dl (10.1-14.3) L 06/23/21 04:00 Hct 22.4 % (30.3-42.9) L 06/23/21 04:00 MCV 101 fl (79-97) H 06/23/21 04:00 MCH 34 pg (28-32) H 06/23/21 04:00 MCHC 33 % (30-34) 06/23/21 04:00 RDW 14.7 % (13.2-15.2) 06/23/21 04:00 Plt Count 380 K/mm3 (140-440) 06/23/21 04:00 Lymph % (Auto) 18.7 % (13.4-35.0) 06/21/21 08:10 [place] % (Auto) 9.3 % (0.0-7.3) H 06/21/21 08:10 Eos % (Auto) 2.0 % (0.0-4.3) 06/21/21 08:10 Baso % (Auto) 0.3 % (0.0-1.8) 06/21/21 08:10 Lymph # (Auto) 1.9 K/mm3 (1.2-5.4) 06/21/21 08:10 [place] # (Auto) 0.9 K/mm3 (0.0-0.8) H 06/21/21 08:10 Eos # (Auto) 0.2 K/mm3 (0.0-0.4) 06/21/21 08:10 Baso # (Auto) 0.0 K/mm3 (0.0-0.1) 06/21/21 08:10 Add Manual Diff Complete 06/08/21 04:25 Total Counted 100 06/08/21 04:25 Seg Neutrophils % 69.7 % (40.0-70.0) 06/21/21 08:10 Seg Neuts % (Manual) 76.0 % (40.0-70.0) H 06/08/21 04:25 Band Neutrophils % 4.0 % 06/08/21 04:25 Lymphocytes % (Manual) 6.0 % (13.4-35.0) L 06/08/21 04:25 Monocytes % (Manual) 8.0 % (0.0-7.3) H 06/08/21 04:25 Eosinophils % (Manual) 1.0 % (0.0-4.3) 06/08/21 04:25 Metamyelocytes % 3.0 % 06/08/21 04:25 Myelocytes % 2.0 % 06/08/21 04:25 Nucleated RBC % Not Reportable 06/08/21 04:25 Seg Neutrophils # 7.0 K/mm3 (1.8-7.7) 06/21/21 08:10 Seg Neutrophils # Man 12.0 K/mm3 (1.8-7.7) H 06/08/21 04:25 Band Neutrophils # 0.6 K/mm3 06/08/21 04:25 Lymphocytes # (Manual) 0.9 K/mm3 (1.2-5.4) L 06/08/21 04:25 Abs React Lymphs (Man) 0.0 K/mm3 06/08/21 04:25 Monocytes # (Manual) 1.3 K/mm3 (0.0-0.8) H 06/08/21 04:25 Eosinophils # (Manual) 0.2 K/mm3 (0.0-0.4) 06/08/21 04:25 Basophils # (Manual) 0.0 K/mm3 (0.0-0.1) 06/08/21 04:25 Metamyelocytes # 0.5 K/mm3 06/08/21 04:25 Myelocytes # 0.3 K/mm3 06/08/21 04:25 Promyelocytes # 0.0 K/mm3 06/08/21 04:25 Blast Cells # 0.0 K/mm3 06/08/21 04:25 WBC Morphology Not Reportable 06/08/21 04:25 Hypersegmented Neuts Not Reportable 06/08/21 04:25 Hyposegmented Neuts Not Reportable 06/08/21 04:25 Hypogranular Neuts Not Reportable 06/08/21 04:25 Smudge Cells Not Reportable 06/08/21 04:25 Toxic Granulation Not Reportable 06/08/21 04:25 Toxic Vacuolation Not Reportable 06/08/21 04:25 Dohle Bodies Not Reportable 06/08/21 04:25 Pelger-Huet Anomaly Not Reportable 06/08/21 04:25 Peter Rods Not Reportable 06/08/21 04:25 Platelet Estimate Consistent w auto 06/08/21 04:25 Clumped Platelets Not Reportable 06/08/21 04:25 Plt Clumps, EDTA Not Reportable 06/08/21 04:25 Large Platelets Not Reportable 06/08/21 04:25 Giant Platelets Not Reportable 06/08/21 04:25 Platelet Satelliting Not Reportable 06/08/21 04:25 Plt Morphology Comment Not Reportable 06/08/21 04:25 RBC Morphology Not Reportable 06/08/21 04:25 Dimorphic RBCs Not Reportable 06/08/21 04:25 Polychromasia Not Reportable 06/08/21 04:25 Hypochromasia Not Reportable 06/08/21 04:25 Poikilocytosis Not Reportable 06/08/21 04:25 Anisocytosis Not Reportable 06/08/21 04:25 Microcytosis Not Reportable 06/08/21 04:25 Macrocytosis Not Reportable 06/08/21 04:25 Spherocytes Not Reportable 06/08/21 04:25 Pappenheimer Bodies Not Reportable 06/08/21 04:25 Sickle Cells Not Reportable 06/08/21 04:25 Target Cells Not Reportable 06/08/21 04:25 Tear Drop Cells Not Reportable 06/08/21 04:25 Ovalocytes Not Reportable 06/08/21 04:25 Helmet Cells Not Reportable 06/08/21 04:25 [place] Bodies Not Reportable 06/08/21 04:25 [place] Rings Not Reportable 06/08/21 04:25 Lin Cells Not Reportable 06/08/21 04:25 Bite Cells Not Reportable 06/08/21 04:25 Crenated Cell Not Reportable 06/08/21 04:25 Elliptocytes Not Reportable 06/08/21 04:25 Acanthocytes (Spur) Not Reportable 06/08/21 04:25 Rouleaux Not Reportable 06/08/21 04:25 Hemoglobin C Crystals Not Reportable 06/08/21 04:25 Schistocytes Not Reportable 06/08/21 04:25 Malaria parasites Not Reportable 06/08/21 04:25 Shravan Bodies Not Reportable 06/08/21 04:25 Hem Pathologist Commnt No 06/08/21 04:25 PT 14.5 Sec. (12.2-14.9) 06/16/21 18:51 INR 1.08 (0.87-1.13) 06/16/21 18:51 APTT 64.1 Sec. (24.2-36.6) H* 06/16/21 18:51 D-Dimer > 86005 ng/mlDDU (0-234) H 05/25/21 09:21 Heparin Anti-Xa Level 1.53 U.I./ml (0.3-0.7) H 06/17/21 04:19 ABG pH 7.484 (7.320-7.450) H 06/23/21 10:50 POC ABG pCO2 39.0 mmHg (32.0-48.0) 06/23/21 10:50 ABG pCO2 30.3 mm Hg 05/29/21 05:28 POC ABG pO2 96.2 mmHg (83-108) 06/23/21 10:50 ABG pO2 96.2 mm Hg (80.0-90.0) H 05/29/21 05:28 POC ABG HCO3 28.7 06/23/21 10:50 ABG HCO3 24.0 mmol/L (20.0-26.0) 05/29/21 05:28 ABG O2 Saturation 97.5 (0-100) 06/23/21 10:50 ABG O2 Content 10.3 (0.0-44) 05/29/21 05:28 POC ABG Base Excess 4.8 06/23/21 10:50 ABG Base Excess 1.2 mmol/L (-2.0-3.0) 05/29/21 05:28 ABG Hemoglobin 7.1 (12.0-17.5) L 06/23/21 10:50 ABG Oxyhemoglobin 96 (94-98) 06/23/21 10:50 ABG Carboxyhemoglobin 1.6 % (0.0-5.0) 05/29/21 05:28 ABG Methemoglobin 0.3 (0.0-1.5) 06/23/21 10:50 ABG Sodium 141.4 mmol/L (136.0-145.0) 06/23/21 10:50 ABG Potassium 4.6 mmol/L (3.40-4.50) H 06/23/21 10:50 ABG Chloride 106.0 mmol/L (98-107) 06/23/21 10:50 ABG Glucose 158 mg/dL (65-95) H 06/23/21 10:50 Oxyhemoglobin 96.0 % (95.0-99.0) 05/29/21 05:28 Carboxyhemoglobin 1.2 (0.5-1.5) 06/23/21 10:50 FiO2 30 % 05/29/21 05:28 FiO2 % 28 06/23/21 10:50 Sodium 143 mmol/L (137-145) 06/23/21 04:00 Potassium 5.2 mmol/L (3.6-5.0) H 06/23/21 04:00 Chloride 104.3 mmol/L (98-107) 06/23/21 04:00 Carbon Dioxide 25 mmol/L (22-30) 06/23/21 04:00 Anion Gap 19 mmol/L 06/23/21 04:00 BUN 43 mg/dL (7-17) H 06/23/21 04:00 Creatinine 1.3 mg/dL (0.6-1.2) H 06/23/21 04:00 Estimated GFR 49 ml/min 06/23/21 04:00 BUN/Creatinine Ratio 33 % 06/23/21 04:00 Glucose 237 mg/dL (65-100) H 06/23/21 04:00 POC Glucose 144 mg/dL (70-105) H 06/23/21 12:16 Lactic Acid 2.30 mmol/L (0.7-2.0) H* 05/26/21 05:49 Calcium 8.5 mg/dL (8.4-10.2) 06/23/21 04:00 Phosphorus 5.40 mg/dL (2.5-4.5) H 06/16/21 04:31 Magnesium 2.40 mg/dL (1.7-2.3) H 06/19/21 06:20 Ferritin 321.6 ng/mL (10.0-200.0) H 05/25/21 09:21 Total Bilirubin 0.20 mg/dL (0.1-1.2) 06/21/21 04:07 Direct Bilirubin < 0.2 mg/dL (0-0.2) 05/25/21 09:21 Indirect Bilirubin 0.2 mg/dL 05/25/21 09:21 AST 79 units/L (5-40) H 06/21/21 04:07 ALT 79 units/L (7-56) H 06/21/21 04:07 Alkaline Phosphatase 159 units/L (35-129) H 06/21/21 04:07 Lactate Dehydrogenase 445 units/L (91-180) H 05/25/21 09:21 Troponin T 0.226 ng/mL (0.00-0.029) H* D 05/25/21 15:19 C-Reactive Protein 28.90 mg/dL (0.00-1.30) H 06/07/21 14:52 NT-Pro-B Natriuret Pep 173.2 pg/mL (0-900) 05/25/21 09:21 Total Protein 6.5 g/dL (6.3-8.2) 06/21/21 04:07 Albumin 2.6 g/dL (3.9-5) L 06/21/21 04:07 Albumin/Globulin Ratio 0.7 % 06/21/21 04:07 Triglycerides 124 mg/dL (2-149) 05/30/21 11:19 Cholesterol 198 mg/dL (50-199) 05/25/21 15:19 LDL Cholesterol Direct 80 mg/dL (50-130) 05/25/21 15:19 HDL Cholesterol 64 mg/dL (40-59) H 05/25/21 15:19 Cholesterol/HDL Ratio 3.09 % 05/25/21 15:19 Procalcitonin 0.36 ng/mL (<0.15) 06/07/21 14:52 Arterial Blood Glucose 158 mg/dL (65-95) H 06/23/21 10:50 Arterial Blood Ionized Calcium 4.3 mg/dL (4.6-5.3) L 06/23/21 10:50 Urine Color Yellow (Yellow) 06/15/21 Unknown Urine Turbidity Slightly-cloudy (Clear) 06/15/21 Unknown Urine pH 6.0 (5.0-7.0) 06/15/21 Unknown Ur Specific [place] 1.013 (1.003-1.030) 06/15/21 Unknown Urine Protein <15 mg/dl mg/dL (Negative) 06/15/21 Unknown Urine Glucose (UA) Neg mg/dL (Negative) 06/15/21 Unknown Urine Ketones Neg mg/dL (Negative) 06/15/21 Unknown Urine Blood Mod (Negative) 06/15/21 Unknown Urine Nitrite Neg (Negative) 06/15/21 Unknown Ur Reducing Substances Not Reportable 06/15/21 Unknown Urine Bilirubin Neg (Negative) 06/15/21 Unknown Urine Ictotest Not Reportable 06/15/21 Unknown Urine Urobilinogen < 2.0 mg/dL (<2.0) 06/15/21 Unknown Ur Leukocyte Esterase Mod (Negative) 06/15/21 Unknown Urine WBC (Auto) 3.0 /HPF (0.0-6.0) 06/15/21 Unknown Urine RBC (Auto) 3.0 /HPF (0.0-6.0) 06/15/21 Unknown U Epithel Cells (Auto) 2.0 /HPF (0-13.0) 06/15/21 Unknown Urine Bacteria (Auto) 1+ /HPF (Negative) 06/15/21 Unknown Urine Mucus Few /HPF 06/15/21 Unknown Urine Yeast (Budding) Few /HPF 06/15/21 Unknown Urine Osmolality 430 Mosm/kg 06/15/21 Unknown Urine Creatinine 74.7 mg/dL (0.1-20.0) H 06/15/21 Unknown Urine Sodium 14 mmol/L 06/15/21 Unknown Coronavirus (PCR) Negative (Negative) 05/30/21 08:15 Blood Type O POSITIVE 06/15/21 08:00 Antibody Screen Negative 06/15/21 08:00 Tan/IV: Voiding Method External Female Catheter Active Medications - Current Medications Current Medications: Generic Name Dose Route Start Last Admin Trade Name Freq PRN Reason Stop Dose Admin Acetaminophen 650 mg 05/25/21 13:48 05/28/21 04:14 Acetaminophen 325 Mg Tab PO 650 mg Q6H PRN Administration Pain MILD(1-3)/Fever >100.5/SOTOMAYOR Acetylcysteine 200 mg 06/20/21 16:00 06/23/21 02:20 Acetylcysteine 20% 200 Mg/1 Ml *For Inhalation Use* INHALATION 06/25/21 15:59 Not Given Q8HRT ABDIRAHMAN Lipase/Protease/Amylase 1 each 05/26/21 10:00 Lipase 10,500/Protease 25,000/Amylase 43,750 (Units) Dr Munguia FEEDTUBE PRN PRN For Clogged Feeding Tube Apixaban 5 mg 06/16/21 22:00 06/23/21 09:31 Apixaban 5 Mg Tab PO 5 mg Q12HR ABDIRAHMAN Administration Protocol Bisacodyl 10 mg 06/08/21 10:00 Bisacodyl 10 Mg Rect Supp [place] QDAY PRN Constipation Dextrose 50 ml 05/28/21 14:28 Dextrose 50% In Water (25gm) 50 Ml Syringe IV Q30MIN PRN Hypoglycemia Protocol Docusate Sodium 100 mg 06/08/21 10:00 06/23/21 09:30 Docusate Sodium 100 Mg/10 Ml Oral Liqd PO 100 mg BID ABDIRAHMAN Administration Doxazosin Mesylate 2 mg 06/01/21 12:00 06/23/21 09:30 Doxazosin 1 Mg Tab PO 2 mg BID ABDIRAHMAN Administration Famotidine 20 mg 05/29/21 10:00 06/23/21 09:31 Famotidine 20 Mg Tab FEEDTUBE 20 mg BID ABDIRAHMAN Administration Glycopyrrolate 2 mg 06/22/21 22:00 06/23/21 05:55 Glycopyrrolate 2 Mg Tab PO 2 mg Q8HR ABDIRAHMAN Administration Hydralazine HCl 10 mg 06/01/21 11:43 06/07/21 17:23 Hydralazine 20 Mg/1 Ml Inj IV 10 mg Q4HR PRN Administration SBP >160 Hydralazine HCl 50 mg 06/03/21 22:00 06/23/21 05:55 Hydralazine 25 Mg Tab PO 50 mg Q8HR ABDIRAHMAN Administration Hydrophilic Ointment 1 applic 05/25/21 19:04 Lip Therapy Vaseline TP Q2HR PRN Dry Lips Insulin Glargine 30 units 06/15/21 22:00 06/22/21 21:31 Insulin Glargine 100 Units/Ml SUB-Q 30 units QHS ABDIRAHMAN Administration Insulin Human Lispro 0 unit 05/29/21 12:00 06/23/21 12:35 Insulin Lispro 100 Unit/Ml SUB-Q Not Given Q6HR [facility] Protocol Labetalol HCl 300 mg 06/03/21 13:40 06/23/21 09:31 Labetalol 100 Mg Tab PO 300 mg BID ABDIRAHMAN Administration Levetiracetam 250 mg 06/01/21 22:00 06/23/21 09:30 Levetiracetam 500 Mg/5 Ml Oral Liqd FEEDTUBE 250 mg Q12HR ABDIRAHMAN Administration Metoclopramide HCl 5 mg 06/22/21 22:00 06/23/21 05:55 Metoclopramide 10 Mg/2 Ml Inj IV 5 mg Q8HR ABDIRAHMAN Administration Multi-Ingred Cream/Lotion/Oil/Oint 1 applic 05/25/21 19:04 Mineral Oil/Petrolatum, White Ophth Oint 3.5 Gm OU Q4HR PRN Dry Eye(s) Polyethylene Glycol 17 gm 06/05/21 11:00 06/23/21 09:30 Polyethylene Glycol 3350 17 Gm Powder PO 17 gm QDAY ABDIRAHMAN Administration Scopolamine 1 each 06/20/21 10:00 06/23/21 09:32 Scopolamine Transdermal Patch 72 Hr TD 1 each Q3D ABDIRAHMAN Administration Senna/Docusate Sodium 1 tab 05/25/21 22:00 06/23/21 09:30 Sennosides/Docusate Sodium 8.6/50 Mg Tab FEEDTUBE 1 tab BID ABDIRAHMAN Administration Simple Syrup 15 ml 05/26/21 10:00 Simple Syrup 15 Ml FEEDTUBE PRN PRN Hypoglycemia Simple Syrup 30 ml 05/26/21 10:00 Simple Syrup 15 Ml FEEDTUBE PRN PRN Hypoglycemia Sodium Bicarbonate 325 mg 05/26/21 10:00 Sodium Bicarbonate 325 Mg Tab FEEDTUBE PRN PRN For Clogged Feeding Tube Sodium Chloride 10 ml 05/25/21 22:00 06/23/21 09:31 Sodium Chloride 0.9% 10 Ml Flush Syringe IV 10 ml BID ABDIRAHMAN Administration Sodium Chloride 10 ml 05/25/21 13:48 06/04/21 03:57 Sodium Chloride 0.9% 10 Ml Flush Syringe IV 10 ml PRN PRN Administration LINE FLUSH Sodium Polystyrene Sulfonate 15 gm 06/23/21 13:30 Sodium Polystyrene 15 Gm/60 Ml Oral Liqd PO 06/23/21 17:30 ONCE@1330 ABDIRAHMAN Valsartan 160 mg 06/11/21 10:00 06/23/21 09:31 Valsartan 160mg Tab PO 160 mg BID ABDIRAHMAN Administration Nutrition/Malnutrition Assess - Dietary Evaluation Nutrition/Malnutrition Findings: Nutrition Notes Start: 05/26/21 09 :00 Freq: Status: Active Protocol: Document 06/19/21 15:49 GB (Rec: 06/19/21 15:57 GB [id number]) Nutrition Notes Initial or Follow up Reassessment Current Diagnosis COPD,Diabetes,Sepsis, Hypertension,Respiratory Failure Other Pertinent Diagnosis cardiac arrest, seizure disorder, (06/12: Trach/PEG) Current Diet NPO, Tube feeding glucerna 1.2 @50 Labs/Tests 06/19: Na 148, BUN 26, glucose 109, Mg 2.4 Pertinent Medications reviewed Height 5 ft 4 in Weight 63 kg [place] Body Weight (kg) 54.54 BMI 23.8 Weight change and time frame -6.6% since admission No new weights after 05/30 Weight Status Appropriate Subjective/Other Information 06/12: Trach/PEG 06/12: TF formula changed to glucerna 1.2 r/t altered labs and now with trach/peg Last BM 06/17 06/19: waiting for placement SNF vs Home w/home health depending on T-piece tolerance Percent of energy/protein needs met: TF goal rate meets 75% or greater of estimated energy needs Burn Absent Trauma Absent GI Symptoms None Difficulty In Swallowing Food Allergy No Current % PO Other Minimum of two criteria No #1 Nutrition Diagnosis Inadequate oral intake Comments: 06/02: On vent. TF continues. 06/07: Ventilation continues, TF continues. 06/13: Trach/PEG on 06/12, change formula to glucerna 1.2 06/19: T/P continues, TF glucerna 1.2 @50ml/hr Etiology ARF As Evidenced by Signs and Symptoms pt on vent and unable to consume PO Diagnosis Progress(for reassessment Continues documentation) Is patient on ventilator? Yes Is Patient Ambulatory and/or Out of Bed No REE-([facility]-confined to bed) 1385.676 Kcal/Kg value to use for calculation 23 Approximate Energy Requirements Using 1449 kcal/Kg Calculation Used for Recommendations Kcal/kg Additional Notes Protein: (1-1.5g/kg @63kg) 63- 95g Fluid: 1 ml/kcal or per MD Nutrition Intervention Change Diet Order: Continue NPO Nutrition Support: Glucerna 1.2 at 50 ml/hr Flush 75 ml q4h 06/07: continues 06/13: Trach/PEG on 06/12, change formula to glucerna 1.2 06/19: Glucerna 1.2 at 50ml/hr continues Kcal 1,440 Protein (gm) 72 Goal #1 Meet 75% or greater of protein and energy needs via TF 06/13: TF at goal meets 100% estimated energy needs: met, continues 06/19: met continues Goal #2 Change TF formula. Complete current vital 1.2 bottle, change to glucerna 1.2 r/t DM and related lab results 06/19: met, resolved Follow-Up By: 06/26/21 Additional Comments f/u: TF tolerance, new weights available <KASHIF MOORE R - Last Filed: 06/24/21 09:09> Assessment and Plan Assessment and plan: I saw and evaluated the patient. I agree with the findings and the plan of care as documented in the Nurse Practitioner's~note. Hospitalist Physical - Constitutional Vitals: Temp Pulse Resp BP Pulse Ox 97.4 F L 81 16 134/60 100 06/24/21 08:40 06/24/21 08:40 06/24/21 08:40 06/24/21 08:40 06/24/21 08:40 HEART Score - HEART Score Troponin: Troponin T 0.226 ng/mL (0.00-0.029) H* D 05/25/21 15:19 Results - Labs CBC & Chem 7: 06/24/21 04:40 06/24/21 04:40 Labs: Laboratory Last Values WBC 9.7 K/mm3 (4.5-11.0) 06/24/21 04:40 RBC 2.07 M/mm3 (3.65-5.03) L 06/24/21 04:40 Hgb 7.1 gm/dl (10.1-14.3) L 06/24/21 04:40 Hct 20.4 % (30.3-42.9) L 06/24/21 04:40 MCV 99 fl (79-97) H 06/24/21 04:40 MCH 34 pg (28-32) H 06/24/21 04:40 MCHC 35 % (30-34) H 06/24/21 04:40 RDW 14.7 % (13.2-15.2) 06/24/21 04:40 Plt Count 412 K/mm3 (140-440) 06/24/21 04:40 Lymph % (Auto) 18.7 % (13.4-35.0) 06/21/21 08:10 [place] % (Auto) 9.3 % (0.0-7.3) H 06/21/21 08:10 Eos % (Auto) 2.0 % (0.0-4.3) 06/21/21 08:10 Baso % (Auto) 0.3 % (0.0-1.8) 06/21/21 08:10 Lymph # (Auto) 1.9 K/mm3 (1.2-5.4) 06/21/21 08:10 [place] # (Auto) 0.9 K/mm3 (0.0-0.8) H 06/21/21 08:10 Eos # (Auto) 0.2 K/mm3 (0.0-0.4) 06/21/21 08:10 Baso # (Auto) 0.0 K/mm3 (0.0-0.1) 06/21/21 08:10 Add Manual Diff Complete 06/08/21 04:25 Total Counted 100 06/08/21 04:25 Seg Neutrophils % 69.7 % (40.0-70.0) 06/21/21 08:10 Seg Neuts % (Manual) 76.0 % (40.0-70.0) H 06/08/21 04:25 Band Neutrophils % 4.0 % 06/08/21 04:25 Lymphocytes % (Manual) 6.0 % (13.4-35.0) L 06/08/21 04:25 Monocytes % (Manual) 8.0 % (0.0-7.3) H 06/08/21 04:25 Eosinophils % (Manual) 1.0 % (0.0-4.3) 06/08/21 04:25 Metamyelocytes % 3.0 % 06/08/21 04:25 Myelocytes % 2.0 % 06/08/21 04:25 Nucleated RBC % Not Reportable 06/08/21 04:25 Seg Neutrophils # 7.0 K/mm3 (1.8-7.7) 06/21/21 08:10 Seg Neutrophils # Man 12.0 K/mm3 (1.8-7.7) H 06/08/21 04:25 Band Neutrophils # 0.6 K/mm3 06/08/21 04:25 Lymphocytes # (Manual) 0.9 K/mm3 (1.2-5.4) L 06/08/21 04:25 Abs React Lymphs (Man) 0.0 K/mm3 06/08/21 04:25 Monocytes # (Manual) 1.3 K/mm3 (0.0-0.8) H 06/08/21 04:25 Eosinophils # (Manual) 0.2 K/mm3 (0.0-0.4) 06/08/21 04:25 Basophils # (Manual) 0.0 K/mm3 (0.0-0.1) 06/08/21 04:25 Metamyelocytes # 0.5 K/mm3 06/08/21 04:25 Myelocytes # 0.3 K/mm3 06/08/21 04:25 Promyelocytes # 0.0 K/mm3 06/08/21 04:25 Blast Cells # 0.0 K/mm3 06/08/21 04:25 WBC Morphology Not Reportable 06/08/21 04:25 Hypersegmented Neuts Not Reportable 06/08/21 04:25 Hyposegmented Neuts Not Reportable 06/08/21 04:25 Hypogranular Neuts Not Reportable 06/08/21 04:25 Smudge Cells Not Reportable 06/08/21 04:25 Toxic Granulation Not Reportable 06/08/21 04:25 Toxic Vacuolation Not Reportable 06/08/21 04:25 Dohle Bodies Not Reportable 06/08/21 04:25 Pelger-Huet Anomaly Not Reportable 06/08/21 04:25 Peter Rods Not Reportable 06/08/21 04:25 Platelet Estimate Consistent w auto 06/08/21 04:25 Clumped Platelets Not Reportable 06/08/21 04:25 Plt Clumps, EDTA Not Reportable 06/08/21 04:25 Large Platelets Not Reportable 06/08/21 04:25 Giant Platelets Not Reportable 06/08/21 04:25 Platelet Satelliting Not Reportable 06/08/21 04:25 Plt Morphology Comment Not Reportable 06/08/21 04:25 RBC Morphology Not Reportable 06/08/21 04:25 Dimorphic RBCs Not Reportable 06/08/21 04:25 Polychromasia Not Reportable 06/08/21 04:25 Hypochromasia Not Reportable 06/08/21 04:25 Poikilocytosis Not Reportable 06/08/21 04:25 Anisocytosis Not Reportable 06/08/21 04:25 Microcytosis Not Reportable 06/08/21 04:25 Macrocytosis Not Reportable 06/08/21 04:25 Spherocytes Not Reportable 06/08/21 04:25 Pappenheimer Bodies Not Reportable 06/08/21 04:25 Sickle Cells Not Reportable 06/08/21 04:25 Target Cells Not Reportable 06/08/21 04:25 Tear Drop Cells Not Reportable 06/08/21 04:25 Ovalocytes Not Reportable 06/08/21 04:25 Helmet Cells Not Reportable 06/08/21 04:25 [place] Bodies Not Reportable 06/08/21 04:25 [place] Rings Not Reportable 06/08/21 04:25 [place] Cells Not Reportable 06/08/21 04:25 Bite Cells Not Reportable 06/08/21 04:25 Crenated Cell Not Reportable 06/08/21 04:25 Elliptocytes Not Reportable 06/08/21 04:25 Acanthocytes (Spur) Not Reportable 06/08/21 04:25 Rouleaux Not Reportable 06/08/21 04:25 Hemoglobin C Crystals Not Reportable 06/08/21 04:25 Schistocytes Not Reportable 06/08/21 04:25 Malaria parasites Not Reportable 06/08/21 04:25 Shravan Bodies Not Reportable 06/08/21 04:25 Hem Pathologist Commnt No 06/08/21 04:25 PT 14.5 Sec. (12.2-14.9) 06/16/21 18:51 INR 1.08 (0.87-1.13) 06/16/21 18:51 APTT 64.1 Sec. (24.2-36.6) H* 06/16/21 18:51 D-Dimer > 48554 ng/mlDDU (0-234) H 05/25/21 09:21 Heparin Anti-Xa Level 1.53 U.I./ml (0.3-0.7) H 06/17/21 04:19 ABG pH 7.484 (7.320-7.450) H 06/23/21 10:50 POC ABG pCO2 39.0 mmHg (32.0-48.0) 06/23/21 10:50 ABG pCO2 30.3 mm Hg 05/29/21 05:28 POC ABG pO2 96.2 mmHg (83-108) 06/23/21 10:50 ABG pO2 96.2 mm Hg (80.0-90.0) H 05/29/21 05:28 POC ABG HCO3 28.7 06/23/21 10:50 ABG HCO3 24.0 mmol/L (20.0-26.0) 05/29/21 05:28 ABG O2 Saturation 97.5 (0-100) 06/23/21 10:50 ABG O2 Content 10.3 (0.0-44) 05/29/21 05:28 POC ABG Base Excess 4.8 06/23/21 10:50 ABG Base Excess 1.2 mmol/L (-2.0-3.0) 05/29/21 05:28 ABG Hemoglobin 7.1 (12.0-17.5) L 06/23/21 10:50 ABG Oxyhemoglobin 96 (94-98) 06/23/21 10:50 ABG Carboxyhemoglobin 1.6 % (0.0-5.0) 05/29/21 05:28 ABG Methemoglobin 0.3 (0.0-1.5) 06/23/21 10:50 ABG Sodium 141.4 mmol/L (136.0-145.0) 06/23/21 10:50 ABG Potassium 4.6 mmol/L (3.40-4.50) H 06/23/21 10:50 ABG Chloride 106.0 mmol/L (98-107) 06/23/21 10:50 ABG Glucose 158 mg/dL (65-95) H 06/23/21 10:50 Oxyhemoglobin 96.0 % (95.0-99.0) 05/29/21 05:28 Carboxyhemoglobin 1.2 (0.5-1.5) 06/23/21 10:50 FiO2 30 % 05/29/21 05:28 FiO2 % 28 06/23/21 10:50 Sodium 145 mmol/L (137-145) 06/24/21 04:40 Potassium 4.8 mmol/L (3.6-5.0) 06/24/21 04:40 Chloride 104.6 mmol/L (98-107) 06/24/21 04:40 Carbon Dioxide 26 mmol/L (22-30) 06/24/21 04:40 Anion Gap 19 mmol/L 06/24/21 04:40 BUN 45 mg/dL (7-17) H 06/24/21 04:40 Creatinine 1.2 mg/dL (0.6-1.2) 06/24/21 04:40 Estimated GFR 54 ml/min 06/24/21 04:40 BUN/Creatinine Ratio 38 % 06/24/21 04:40 Glucose 229 mg/dL (65-100) H 06/24/21 04:40 POC Glucose 192 mg/dL (70-105) H 06/24/21 05:21 Lactic Acid 2.30 mmol/L (0.7-2.0) H* 05/26/21 05:49 Calcium 8.6 mg/dL (8.4-10.2) 06/24/21 04:40 Phosphorus 5.40 mg/dL (2.5-4.5) H 06/16/21 04:31 Magnesium 2.40 mg/dL (1.7-2.3) H 06/19/21 06:20 Ferritin 321.6 ng/mL (10.0-200.0) H 05/25/21 09:21 Total Bilirubin 0.20 mg/dL (0.1-1.2) 06/24/21 04:40 Direct Bilirubin < 0.2 mg/dL (0-0.2) 05/25/21 09:21 Indirect Bilirubin 0.2 mg/dL 05/25/21 09:21 AST 83 units/L (5-40) H 06/24/21 04:40 ALT 80 units/L (7-56) H 06/24/21 04:40 Alkaline Phosphatase 142 units/L (35-129) H 06/24/21 04:40 Lactate Dehydrogenase 445 units/L (91-180) H 05/25/21 09:21 Troponin T 0.226 ng/mL (0.00-0.029) H* D 05/25/21 15:19 C-Reactive Protein 28.90 mg/dL (0.00-1.30) H 06/07/21 14:52 NT-Pro-B Natriuret Pep 173.2 pg/mL (0-900) 05/25/21 09: Total Protein 7.0 g/dL (6.3-8.2) 06/24/21 04:40 Albumin 2.8 g/dL (3.9-5) L 06/24/21 04:40 Albumin/Globulin Ratio 0.7 % 06/24/21 04:40 Triglycerides 124 mg/dL (2-149) 05/30/21 11:19 Cholesterol 198 mg/dL (50-199) 05/25/21 15:19 LDL Cholesterol Direct 80 mg/dL (50-130) 05/25/21 15:19 HDL Cholesterol 64 mg/dL (40-59) H 05/25/21 15:19 Cholesterol/HDL Ratio 3.09 % 05/25/21 15:19 Procalcitonin 0.36 ng/mL (<0.15) 06/07/21 14:52 Arterial Blood Glucose 158 mg/dL (65-95) H 06/23/21 10:50 Arterial Blood Ionized Calcium 4.3 mg/dL (4.6-5.3) L 06/23/21 10:50 Urine Color Yellow (Yellow) 06/15/21 Unknown Urine Turbidity Slightly-cloudy (Clear) 06/15/21 Unknown Urine pH 6.0 (5.0-7.0) 06/15/21 Unknown Ur Specific [place] 1.013 (1.003-1.030) 06/15/21 Unknown Urine Protein <15 mg/dl mg/dL (Negative) 06/15/21 Unknown Urine Glucose (UA) Neg mg/dL (Negative) 06/15/21 Unknown Urine Ketones Neg mg/dL (Negative) 06/15/21 Unknown Urine Blood Mod (Negative) 06/15/21 Unknown Urine Nitrite Neg (Negative) 06/15/21 Unknown Ur Reducing Substances Not Reportable 06/15/21 Unknown Urine Bilirubin Neg (Negative) 06/15/21 Unknown Urine Ictotest Not Reportable 06/15/21 Unknown Urine Urobilinogen < 2.0 mg/dL (<2.0) 06/15/21 Unknown Ur Leukocyte Esterase Mod (Negative) 06/15/21 Unknown Urine WBC (Auto) 3.0 /HPF (0.0-6.0) 06/15/21 Unknown Urine RBC (Auto) 3.0 /HPF (0.0-6.0) 06/15/21 Unknown U Epithel Cells (Auto) 2.0 /HPF (0-13.0) 06/15/21 Unknown Urine Bacteria (Auto) 1+ /HPF (Negative) 06/15/21 Unknown Urine Mucus Few /HPF 06/15/21 Unknown Urine Yeast (Budding) Few /HPF 06/15/21 Unknown Urine Osmolality 430 Mosm/kg 06/15/21 Unknown Urine Creatinine 74.7 mg/dL (0.1-20.0) H 06/15/21 Unknown Urine Sodium 14 mmol/L 06/15/21 Unknown Coronavirus (PCR) Negative (Negative) 05/30/21 08:15 Blood Type O POSITIVE 06/15/21 08:00 Antibody Screen Negative 06/15/21 08:00 Tan/IV: Voiding Method Incontinent Active Medications - Current Medications Current Medications: Generic Name Dose Route Start Last Admin Trade Name Freq PRN Reason Stop Dose Admin Acetaminophen 650 mg 05/25/21 13:48 05/28/21 04:14 Acetaminophen 325 Mg Tab PO 650 mg Q6H PRN Administration Pain MILD(1-3)/Fever >100.5/SOTOMAYOR Acetylcysteine 200 mg 06/20/21 16:00 06/24/21 00:55 Acetylcysteine 20% 200 Mg/1 Ml *For Inhalation Use* INHALATION 06/25/21 15:59 Not Given Q8HRT ABDIRAHMAN Lipase/Protease/Amylase 1 each 05/26/21 10:00 Lipase 10,500/Protease 25,000/Amylase 43,750 (Units) Dr Munguia FEEDTUBE PRN PRN For Clogged Feeding Tube Apixaban 5 mg 06/16/21 22:00 06/23/21 23:06 Apixaban 5 Mg Tab PO 5 mg Q12HR ABDIRAHMAN Administration Protocol Bisacodyl 10 mg 06/08/21 10:00 Bisacodyl 10 Mg Rect Supp [place] QDAY PRN Constipation Dextrose 50 ml 05/28/21 14:28 Dextrose 50% In Water (25gm) 50 Ml Syringe IV Q30MIN PRN Hypoglycemia Protocol Docusate Sodium 100 mg 06/08/21 10:00 06/24/21 01:12 Docusate Sodium 100 Mg/10 Ml Oral Liqd PO Not Given BID ABDIRAHMAN Doxazosin Mesylate 2 mg 06/01/21 12:00 06/23/21 23:05 Doxazosin 1 Mg Tab PO 2 mg BID ABDIRAHMAN Administration Famotidine 20 mg 05/29/21 10:00 06/23/21 23:05 Famotidine 20 Mg Tab FEEDTUBE 20 mg BID ABDIRAHMAN Administration Glycopyrrolate 2 mg 06/22/21 22:00 06/24/21 06:36 Glycopyrrolate 2 Mg Tab PO Not Given Q8HR ABDIRAHMAN Hydralazine HCl 10 mg 06/01/21 11:43 06/07/21 17:23 Hydralazine 20 Mg/1 Ml Inj IV 10 mg Q4HR PRN Administration SBP >160 Hydralazine HCl 50 mg 06/03/21 22:00 06/24/21 06:22 Hydralazine 25 Mg Tab PO 50 mg Q8HR ABDIRAHMAN Administration Hydrophilic Ointment 1 applic 05/25/21 19:04 Lip Therapy Vaseline TP Q2HR PRN Dry Lips Insulin Glargine 30 units 06/15/21 22:00 06/24/21 01:13 Insulin Glargine 100 Units/Ml SUB-Q Not Given QHS ABDIRAHMAN Insulin Human Lispro 0 unit 05/29/21 12:00 06/24/21 06:38 Insulin Lispro 100 Unit/Ml SUB-Q 1 unit Q6HR ABDIRAHMAN Administration Protocol Labetalol HCl 300 mg 06/03/21 13:40 06/23/21 23:09 Labetalol 100 Mg Tab PO 300 mg BID ABDIRAHMAN Administration Levetiracetam 250 mg 06/01/21 22:00 06/23/21 23:05 Levetiracetam 500 Mg/5 Ml Oral Liqd FEEDTUBE 250 mg Q12HR ABDIRAHMAN Administration Metoclopramide HCl 5 mg 06/22/21 22:00 06/24/21 06:22 Metoclopramide 10 Mg/2 Ml Inj IV 5 mg Q8HR ABDIRAHMAN Administration Multi-Ingred Cream/Lotion/Oil/Oint 1 applic 05/25/21 19:04 Mineral Oil/Petrolatum, White Ophth Oint 3.5 Gm OU Q4HR PRN Dry Eye(s) Polyethylene Glycol 17 gm 06/05/21 11:00 06/23/21 09:30 Polyethylene Glycol 3350 17 Gm Powder PO 17 gm QDAY ABDIRAHMAN Administration Scopolamine 1 each 06/20/21 10:00 06/23/21 09:32 Scopolamine Transdermal Patch 72 Hr TD 1 each Q3D ABDIRAHMAN Administration Senna/Docusate Sodium 1 tab 05/25/21 22:00 06/24/21 01:12 Sennosides/Docusate Sodium 8.6/50 Mg Tab FEEDTUBE Not Given BID ABDIRAHMAN Simple Syrup 15 ml 05/26/21 10:00 Simple Syrup 15 Ml FEEDTUBE PRN PRN Hypoglycemia Simple Syrup 30 ml 05/26/21 10:00 Simple Syrup 15 Ml FEEDTUBE PRN PRN Hypoglycemia Sodium Bicarbonate 325 mg 05/26/21 10:00 Sodium Bicarbonate 325 Mg Tab FEEDTUBE PRN PRN For Clogged Feeding Tube Sodium Chloride 10 ml 05/25/21 22:00 06/24/21 01:21 Sodium Chloride 0.9% 10 Ml Flush Syringe IV 10 ml BID ABDIRAHMAN Administration Sodium Chloride 10 ml 05/25/21 13:48 06/04/21 03:57 Sodium Chloride 0.9% 10 Ml Flush Syringe IV 10 ml PRN PRN Administration LINE FLUSH Valsartan 160 mg 06/11/21 10:00 06/23/21 23:06 Valsartan 160mg Tab PO 160 mg BID ABDIRAHMAN Administration Nutrition/Malnutrition Assess - Dietary Evaluation Nutrition/Malnutrition Findings: Nutrition Notes Start: 05/26/21 09:00 Freq: Status: Active Protocol: Document 06/19/21 15:49 GB (Rec: 06/19/21 15:57 GB [id number]) Nutrition Notes Initial or Follow up Reassessment Current Diagnosis COPD,Diabetes,Sepsis, Hypertension,Respiratory Failure Other Pertinent Diagnosis cardiac arrest, seizure disorder, (06/12: Trach/PEG) Current Diet NPO, Tube feeding glucerna 1.2 @50 Labs/Tests 06/19: Na 148, BUN 26, glucose 109, Mg 2.4 Pertinent Medications reviewed Height 5 ft 4 in Weight 63 kg [place] Body Weight (kg) 54.54 BMI 23.8 Weight change and time frame -6.6% since admission No new weights after 05/30 Weight Status Appropriate Subjective/Other Information 06/12: Trach/PEG 06/12: TF formula changed to glucerna 1.2 r/t altered labs and now with trach/peg Last BM 06/17 06/19: waiting for placement SNF vs Home w/home health depending on T-piece tolerance Percent of energy/protein needs met: TF goal rate meets 75% or greater of estimated energy needs Burn Absent Trauma Absent GI Symptoms None Difficulty In Swallowing Food Allergy No Current % PO Other Minimum of two criteria No #1 Nutrition Diagnosis Inadequate oral intake Comments: 06/02: On vent. TF continues. 06/07: Ventilation continues, TF continues. 06/13: Trach/PEG on 06/12, change formula to glucerna 1.2 06/19: T/P continues, TF glucerna 1.2 @50ml/hr Etiology ARF As Evidenced by Signs and Symptoms pt on vent and unable to consume PO Diagnosis Progress(for reassessment Continues documentation) Is patient on ventilator? Yes Is Patient Ambulatory and/or Out of Bed No REE-([facility]confined [facility]) 1385.676 Kcal/Kg value to use for calculation 23 Approximate Energy Requirements Using 1449 kcal/Kg Calculation Used for Recommendations Kcal/kg Additional Notes Protein: (1-1.5g/kg @63kg) 63- 95g Fluid: 1 ml/kcal or per MD Nutrition Intervention Change Diet Order: Continue NPO Nutrition Support: Glucerna 1.2 at 50 ml/hr Flush 75 ml q4h 06/07: continues 06/13: Trach/PEG on 06/12, change formula to glucerna 1.2 06/19: Glucerna 1.2 at 50ml/hr continues Kcal 1,440 Protein (gm) 72 Goal #1 Meet 75% or greater of protein and energy needs via TF 06/13: TF at goal meets 100% estimated energy needs: met, continues 06/19: met continues Goal #2 Change TF formula. Complete current vital 1.2 bottle, change to glucerna 1.2 r/t DM and related lab results 06/19: met, resolved Follow-Up By: 06/26/21 Additional Comments f/u: TF tolerance, new weights available
--- NOTE | 2021-06-23 23:51 | Event Note ---
Date: 06/23/21 I was called by patients Nurse -patient vomited. patient has trach tube. Patient is on tube feeding and residual about 75cc. Patient seen and assessment completed-patient awake and not in any distress. trach tube in place. Oxygen saturation 100%. Chest x-ray ordered r/o aspiration. Abdomen distended with positive bowel sound.
--- NOTE | 2021-06-24 00:45 | XRay Report ---
CHEST 1 VIEW 06/23/2021 11:28 PM INDICATION / CLINICAL INFORMATION: aspiration. COMPARISON: 06/21/2021 FINDINGS: SUPPORT DEVICES: Stable, satisfactory device positioning. HEART / MEDIASTINUM: No significant abnormality. LUNGS / PLEURA: Left basilar opacity which may represent atelectasis versus aspiration pneumonitis. N o pneumothorax. ADDITIONAL FINDINGS: No significant additional findings. IMPRESSION: 1. Left basilar opacity which may represent atelectasis versus aspiration pneumonitis. Signer Name: Monty Jean DO Signed: 06/24/2021 12:41 AM Workstation Name: [id number]
[2021-06-24] MEDS: ACETYLCYSTEINE 20% 200 MG/1 ML *FOR INHALATION USE INHALATION SCH ×3 (00:55→16:06)
[2021-06-24] MEDS: DOCUSATE SODIUM 100 MG/10 ML ORAL LIQD PO SCH ×3 (01:12→22:25)
[2021-06-24] MEDS: SENNOSIDES/DOCUSATE SODIUM 8.6/50 MG TAB FEEDTUBE SCH ×3 (01:12→22:28)
[2021-06-24] MEDS: INSULIN LISPRO 100 UNIT/ML SUB-Q SCH ×4 (01:13→18:19)
[2021-06-24] MEDS: INSULIN GLARGINE 100 UNITS/ML SUB-Q SCH ×2 (01:13→22:28)
[2021-06-24] MEDS: FREE WATER PO SCH ×8 (01:19→18:12)
[2021-06-24 05:38] LABS: Hematocrit 20.4 % (30.3-42.9); Hemoglobin 7.1 gm/dl (10.1-14.3); Mean Corpuscular HGB Conc 35 % (30-34); Mean Corpuscular Volume 99 fl (79-97); Platelet Count 412 K/mm3 (140-440); Red Blood Count 2.07 M/mm3 (3.65-5.03); Red Cell Distribution Width 14.7 % (13.2-15.2)
[2021-06-24 05:55] LABS: Albumin 2.8 g/dL (3.9-5); Calcium 8.6 mg/dL (8.4-10.2)
[2021-06-24] MEDS: METOCLOPRAMIDE 10 MG/2 ML INJ IV SCH ×3 (06:22→22:27)
[2021-06-24] MEDS: hydrALAZINE 25 MG TAB PO SCH ×3 (06:22→22:27)
[2021-06-24] MEDS: GLYCOPYRROLATE 2 MG TAB PO SCH ×3 (06:36→22:25)
[2021-06-24] MEDS: levETIRAcetam 500 MG/5 ML ORAL LIQD FEEDTUBE SCH ×2 (10:46→22:24)
[2021-06-24] MEDS: VALSARTAN 160MG TAB PO SCH ×2 (10:46→22:25)
[2021-06-24] MEDS: DOXAZOSIN 1 MG TAB PO SCH ×2 (10:47→22:26)
[2021-06-24] MEDS: FAMOTIDINE 20 MG TAB FEEDTUBE SCH ×2 (10:47→22:27)
[2021-06-24] MEDS: POLYETHYLENE GLYCOL 3350 17 GM POWDER PO SCH (10:47)
[2021-06-24] MEDS: APIXABAN 5 MG TAB PO SCH ×2 (10:47→22:25)
--- NOTE | 2021-06-24 14:48 | Progress Note ---
Assessment and Plan Acute hypoxemic respiratory failure s/p trach to ATP s/p Cardiopulmonary arrest wtih ROSC h/o Seizure disorder Sepsis Toxic metabolic encephalopathy, possible anoxia Atrial fibrillation with RVR Metabolic acidosis Bilateral lower lobe infiltrates on imaging Hyperkalemia - continue to titrate supplemental oxygen to keep SpO2 88-90% - Aspiration precautions HOB >30 -trach car, airway clearance, secretion management - continue bronchodilators (MARY & LABA) with pulmonary hygiene per RT -Accuchecks with glycemic control per SSI (While critically ill target blood glucose of 140-180 mg/dL; avoid hypoglycemia) -Enteric nutritional support at goal - Maintenance of sleep-wake cycle, avoid delirium - Stress ulcer prophylaxis- Famotidine - Continue VTE prophylaxis, on therapeutic anticoagulation - mobility, off loading, frequent turning per facility protocol for pressure ulcer prevention - Monitor hemodynamics closely -Kayexalate for hyperkalemia -OK to transfer telemetry - continue other care per attending / other consultants -Discharge planning COVID SPECIFIC INTERVENTIONS -Negative CONDITION: FAIR PROGNOSIS: POOR ENTERPRISE MOBILITY ARCHITECT CODE STATUS: FULL CODE Subjective Date of service: 06/24/21 Principal diagnosis: Ac hypoxemic resp failure; Cardiac arrest; Seizures; Sepsis; AMS; A-Fib RVR Interval history: Summary per medical records. Information verified at the bedside with her son 65 YO Female with HTN, OK, CAD S/P Stent Placement, Nicotine Dependence, DM, HLD, Seizure Disorder presents to ED for evaluation. Patient is intubated and ambulatory support at the time my evaluation is unable to provide history. Patient agitated when EMS staff, ED staff, as well as the patient's son who was made available by telephone for interview. As per son the patient was in her usual state of health on the day prior to admission. 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 Patient son reports that patient began hyperventilating and screaming "help me, help me. EMS was notified and upon arrival the patient was found to be in distress and subsequently lost consciousness and was found to have asystole on classroom monitor. Patient was treated" with ACLS protocol with return of perfusing cardiac rhythm. The patient was transported to [facility] for further care and evaluation of the aforementioned symptoms. The patient was seen and evaluated in the emergency department and shortly upon arrival to the emergency department the patient experienced repeated asystole. Patient was again treated" with ACLS protocol with eventual return of perfusing cardiac rhythm. Patient was found to have acute hypoxemic respiratory failure and was unable to protect her airway and was subsequently intubated while in the emergency department. The patient was also found to have atrial fibrillation with rapid ventricular response, metabolic acidosis, sepsis, toxic metabolic encephalopathy and suspected anoxic brain injury. Patient admitted to ICU and initiated on sepsis protocol. Follow up for: acute hypoxemic resp failure; s/p cardiopulmonary arrest with ROSC; Seizure disorder Patient seen and examined. Vitals, labs, medications, chart reviewed. No fevers, no vomiting. Discussed with nursing and resp staff in interdisciplinary rounds She is s/p trach and has been off MVS overnight Mental status changes persist Objective Vital Signs - 12hr 06/24/21 06/24/21 06/24/21 04:00 04:01 08:40 Temperature 99.2 F 97.4 F L Pulse Rate 78 82 81 Respiratory 20 16 Rate Blood Pressure 143/41 134/60 O2 Sat by Pulse 98 100 100 Oximetry 06/24/21 06/24/21 06/24/21 10:46 10:47 10:48 Temperature Pulse Rate 81 81 81 Respiratory Rate Blood Pressure 134/60 134/60 134/60 O2 Sat by Pulse Oximetry Constitutional: appears uncomfortable, other (elderly female with normal respiratory effort at rest , trach to ATP) Eyes: non-icteric ENT: oropharynx moist, other (+ midline tracheostomy with mild secretions) Neck: supple, no lymphadenopathy Effort: mildly labored Ascultation: Bilateral: diminished breath sounds, rhonchi (scant) Percussion: Bilateral: not dull Cardiovascular: regular rate and rhythm, other (S1,S2) Gastrointestinal: normoactive bowel sounds, soft, non-tender, non-distended (protuberant), other (+ PEG tube) Integumentary: normal Extremities: no cyanosis, pulses normal, no ischemia or petechiae, other (Right femoral CVL) Neurologic: pupils equal and round, unable to assess, other (encephalopathic) Psychiatric: other (unable to assess) CBC and BMP: 06/24/21 04:40 06/24/21 04:40 ABG, PT/INR, D-dimer: ABG ABG pH 7.484 (7.320-7.450) H 06/23/21 10:50 POC ABG pCO2 39.0 mmHg (32.0-48.0) 06/23/21 10:50 ABG pCO2 30.3 mm Hg 05/29/21 05:28 POC ABG pO2 96.2 mmHg (83-108) 06/23/21 10:50 ABG pO2 96.2 mm Hg (80.0-90.0) H 05/29/21 05:28 POC ABG HCO3 28.7 06/23/21 10:50 ABG O2 Saturation 97.5 (0-100) 06/23/21 10:50 PT/INR, D-dimer PT 14.5 Sec. (12.2-14.9) 06/16/21 18:51 INR 1.08 (0.87-1.13) 06/16/21 18:51 D-Dimer > 18020 ng/mlDDU (0-234) H 05/25/21 09:21 Abnormal lab findings: Abnormal Labs 05/25/21 05/25/21 05/25/21 09:07 09:21 09:21 WBC 17.1 H RBC Hgb Hct MCV 106 H MCH 33 H MCHC RDW 15.6 H Stephenson % (Auto) Stephenson # (Auto) Seg Neutrophils % Seg Neuts % (Manual) Lymphocytes % (Manual) Monocytes % (Manual) Seg Neutrophils # Seg Neutrophils # Man 10.1 H Lymphocytes # (Manual) 5.6 H Monocytes # (Manual) PT 15.0 H APTT 44.3 H D-Dimer > 17694 H Heparin Anti-Xa Level ABG pH 7.116 L POC ABG pCO2 POC ABG pO2 ABG pO2 ABG Hemoglobin ABG Oxyhemoglobin 93.7 L ABG Sodium ABG Potassium ABG Chloride ABG Glucose 395 H Carboxyhemoglobin Sodium Potassium Chloride Carbon Dioxide BUN Creatinine Glucose POC Glucose Lactic Acid Calcium Phosphorus Magnesium Ferritin AST ALT Alkaline Phosphatase Lactate Dehydrogenase Troponin T C-Reactive Protein Total Protein Albumin HDL Cholesterol Arterial Blood Glucose 395 H Arterial Blood Ionized Calcium 4.4 L Urine WBC (Auto) Urine Creatinine 05/25/21 05/25/21 05/25/21 09:21 09:21 09:21 WBC RBC Hgb Hct MCV MCH MCHC RDW Stephenson % (Auto) Stephenson # (Auto) Seg Neutrophils % Seg Neuts % (Manual) Lymphocytes % (Manual) Monocytes % (Manual) Seg Neutrophils # Seg Neutrophils # Man Lymphocytes # (Manual) Monocytes # (Manual) PT APTT D-Dimer Heparin Anti-Xa Level ABG pH POC ABG pCO2 POC ABG pO2 ABG pO2 ABG Hemoglobin ABG Oxyhemoglobin ABG Sodium ABG Potassium ABG Chloride ABG Glucose Carboxyhemoglobin Sodium Potassium Chloride Carbon Dioxide 10 L BUN Creatinine Glucose 423 H 424 H POC Glucose Lactic Acid Calcium 8.2 L Phosphorus Magnesium Ferritin 321.6 H AST 162 H ALT 119 H Alkaline Phosphatase Lactate Dehydrogenase 445 H Troponin T C-Reactive Protein Total Protein 5.6 L Albumin 3.2 L HDL Cholesterol Arterial Blood Glucose Arterial Blood Ionized Calcium Urine WBC (Auto) Urine Creatinine 05/25/21 05/25/21 05/25/21 09:35 10:42 11:12 WBC RBC Hgb Hct MCV MCH MCHC RDW Stephenson % (Auto) Stephenson # (Auto) Seg Neutrophils % Seg Neuts % (Manual) Lymphocytes % (Manual) Monocytes % (Manual) Seg Neutrophils # Seg Neutrophils # Man Lymphocytes # (Manual) Monocytes # (Manual) PT APTT D-Dimer Heparin Anti-Xa Level ABG pH POC ABG pCO2 POC ABG pO2 ABG pO2 ABG Hemoglobin ABG Oxyhemoglobin ABG Sodium ABG Potassium ABG Chloride ABG Glucose Carboxyhemoglobin Sodium Potassium Chloride Carbon Dioxide BUN Creatinine Glucose POC Glucose Lactic Acid 16.70 H* 7.70 H* Calcium Phosphorus Magnesium Ferritin AST ALT Alkaline Phosphatase Lactate Dehydrogenase Troponin T C-Reactive Protein Total Protein Albumin HDL Cholesterol Arterial Blood Glucose Arterial Blood Ionized Calcium Urine WBC (Auto) 11.0 H Urine Creatinine 05/25/21 05/25/21 05/25/21 14:07 15:19 19:04 WBC RBC Hgb Hct MCV MCH MCHC RDW Stephenson % (Auto) Stephenson # (Auto) Seg Neutrophils % Seg Neuts % (Manual) Lymphocytes % (Manual) Monocytes % (Manual) Seg Neutrophils # Seg Neutrophils # Man Lymphocytes # (Manual) Monocytes # (Manual) PT APTT D-Dimer Heparin Anti-Xa Level ABG pH POC ABG pCO2 POC ABG pO2 172.2 H ABG pO2 ABG Hemoglobin ABG Oxyhemoglobin 98.7 H ABG Sodium 135.7 L ABG Potassium ABG Chloride ABG Glucose 255 H Carboxyhemoglobin 0.3 L Sodium Potassium Chloride Carbon Dioxide BUN Creatinine Glucose POC Glucose Lactic Acid 3.90 H* Calcium Phosphorus Magnesium Ferritin AST ALT Alkaline Phosphatase Lactate Dehydrogenase Troponin T 0.226 H* D C-Reactive Protein Total Protein Albumin HDL Cholesterol 64 H Arterial Blood Glucose 255 H Arterial Blood Ionized Calcium 3.8 L Urine WBC (Auto) Urine Creatinine 05/25/21 05/25/21 05/26/21 21:16 21:16 04:00 WBC RBC Hgb Hct MCV MCH MCHC RDW Stephenson % (Auto) Stephenson # (Auto) Seg Neutrophils % Seg Neuts % (Manual) Lymphocytes % (Manual) Monocytes % (Manual) Seg Neutrophils # Seg Neutrophils # Man Lymphocytes # (Manual) Monocytes # (Manual) PT APTT D-Dimer Heparin Anti-Xa Level 1.19 H ABG pH 7.547 H POC ABG pCO2 POC ABG pO2 ABG pO2 ABG Hemoglobin 11.9 L ABG Oxyhemoglobin ABG Sodium 133.2 L ABG Potassium 3.1 L ABG Chloride ABG Glucose 243 H Carboxyhemoglobin 0.3 L Sodium Potassium Chloride Carbon Dioxide BUN Creatinine Glucose POC Glucose Lactic Acid 2.50 H* Calcium Phosphorus Magnesium Ferritin AST ALT Alkaline Phosphatase Lactate Dehydrogenase Troponin T C-Reactive Protein Total Protein Albumin HDL Cholesterol Arterial Blood Glucose 243 H Arterial Blood Ionized Calcium Urine WBC (Auto) Urine Creatinine 05/26/21 05/26/21 05/26/21 05:49 05:49 17:33 WBC RBC Hgb Hct MCV MCH MCHC RDW Stephenson % (Auto) Stephenson # (Auto) Seg Neutrophils % Seg Neuts % (Manual) Lymphocytes % (Manual) Monocytes % (Manual) Seg Neutrophils # Seg Neutrophils # Man Lymphocytes # (Manual) Monocytes # (Manual) PT APTT D-Dimer Heparin Anti-Xa Level ABG pH POC ABG pCO2 POC ABG pO2 ABG pO2 ABG Hemoglobin ABG Oxyhemoglobin ABG Sodium ABG Potassium ABG Chloride ABG Glucose Carboxyhemoglobin Sodium Potassium Chloride Carbon Dioxide BUN Creatinine Glucose 226 H POC Glucose 156 H Lactic Acid 2.30 H* Calcium 7.2 L Phosphorus Magnesium Ferritin AST 111 H ALT 97 H Alkaline Phosphatase Lactate Dehydrogenase Troponin T C-Reactive Protein Total Protein 5.4 L Albumin 3.3 L HDL Cholesterol Arterial Blood Glucose Arterial Blood Ionized Calcium Urine WBC (Auto) Urine Creatinine 05/27/21 05/27/21 05/27/21 02:11 02:11 02:11 WBC 14.3 H RBC 3.27 L Hgb Hct MCV 99 H MCH 33 H MCHC RDW 15.3 H Stephenson % (Auto) Stephenson # (Auto) 1.0 H Seg Neutrophils % Seg Neuts % (Manual) Lymphocytes % (Manual) Monocytes % (Manual) Seg Neutrophils # 10.0 H Seg Neutrophils # Man Lymphocytes # (Manual) Monocytes # (Manual) PT APTT D-Dimer Heparin Anti-Xa Level 0.80 H ABG pH POC ABG pCO2 POC ABG pO2 ABG pO2 ABG Hemoglobin ABG Oxyhemoglobin ABG Sodium ABG Potassium ABG Chloride ABG Glucose Carboxyhemoglobin Sodium Potassium 2.9 L* D Chloride Carbon Dioxide 31 H BUN 6 L Creatinine Glucose 215 H POC Glucose Lactic Acid Calcium 8.1 L Phosphorus Magnesium Ferritin AST ALT Alkaline Phosphatase Lactate Dehydrogenase Troponin T C-Reactive Protein Total Protein Albumin HDL Cholesterol Arterial Blood Glucose Arterial Blood Ionized Calcium Urine WBC (Auto) Urine Creatinine 05/27/21 05/27/21 05/27/21 11:24 12:49 18:06 WBC RBC Hgb Hct MCV MCH MCHC RDW Stephenson % (Auto) Stephenson # (Auto) Seg Neutrophils % Seg Neuts % (Manual) Lymphocytes % (Manual) Monocytes % (Manual) Seg Neutrophils # Seg Neutrophils # Man Lymphocytes # (Manual) Monocytes # (Manual) PT APTT D-Dimer Heparin Anti-Xa Level ABG pH POC ABG pCO2 POC ABG pO2 ABG pO2 ABG Hemoglobin ABG Oxyhemoglobin ABG Sodium ABG Potassium ABG Chloride ABG Glucose Carboxyhemoglobin Sodium Potassium Chloride Carbon Dioxide BUN Creatinine Glucose POC Glucose 151 H 165 H 137 H Lactic Acid Calcium Phosphorus Magnesium Ferritin AST ALT Alkaline Phosphatase Lactate Dehydrogenase Troponin T C-Reactive Protein Total Protein Albumin HDL Cholesterol Arterial Blood Glucose Arterial Blood Ionized Calcium Urine WBC (Auto) Urine Creatinine 05/28/21 05/28/21 05/28/21 04:00 04:00 06:02 WBC 13.5 H RBC 3.05 L Hgb Hct MCV 100 H MCH 34 H MCHC RDW Stephenson % (Auto) Stephenson # (Auto) 0.9 H Seg Neutrophils % 78.2 H Seg Neuts % (Manual) Lymphocytes % (Manual) Monocytes % (Manual) Seg Neutrophils # 10.6 H Seg Neutrophils # Man Lymphocytes # (Manual) Monocytes # (Manual) PT APTT D-Dimer Heparin Anti-Xa Level ABG pH 7.507 H POC ABG pCO2 POC ABG pO2 ABG pO2 ABG Hemoglobin 10.6 L ABG Oxyhemoglobin ABG Sodium 129.4 L ABG Potassium ABG Chloride ABG Glucose 243 H Carboxyhemoglobin 0.2 L Sodium 136 L D Potassium Chloride Carbon Dioxide BUN Creatinine Glucose 215 H POC Glucose Lactic Acid Calcium Phosphorus Magnesium Ferritin AST ALT Alkaline Phosphatase Lactate Dehydrogenase Troponin T C-Reactive Protein Total Protein Albumin HDL Cholesterol Arterial Blood Glucose 243 H Arterial Blood Ionized Calcium 4.1 L Urine WBC (Auto) Urine Creatinine 05/28/21 05/28/21 05/29/21 11:27 23:02 04:30 WBC RBC Hgb 9.3 L Hct 26.7 L MCV MCH MCHC RDW Stephenson % (Auto) Stephenson # (Auto) Seg Neutrophils % Seg Neuts % (Manual) Lymphocytes % (Manual) Monocytes % (Manual) Seg Neutrophils # Seg Neutrophils # Man Lymphocytes # (Manual) Monocytes # (Manual) PT APTT D-Dimer Heparin Anti-Xa Level ABG pH POC ABG pCO2 POC ABG pO2 ABG pO2 ABG Hemoglobin ABG Oxyhemoglobin ABG Sodium ABG Potassium ABG Chloride ABG Glucose Carboxyhemoglobin Sodium Potassium Chloride Carbon Dioxide BUN Creatinine Glucose POC Glucose 220 H 212 H Lactic Acid Calcium Phosphorus Magnesium Ferritin AST ALT Alkaline Phosphatase Lactate Dehydrogenase Troponin T C-Reactive Protein Total Protein Albumin HDL Cholesterol Arterial Blood Glucose Arterial Blood Ionized Calcium Urine WBC (Auto) Urine Creatinine 05/29/21 05/29/21 05/29/21 05:02 05:28 12:55 WBC RBC Hgb Hct MCV MCH MCHC RDW Stephenson % (Auto) Stephenson # (Auto) Seg Neutrophils % Seg Neuts % (Manual) Lymphocytes % (Manual) Monocytes % (Manual) Seg Neutrophils # Seg Neutrophils # Man Lymphocytes # (Manual) Monocytes # (Manual) PT APTT D-Dimer Heparin Anti-Xa Level ABG pH 7.516 H POC ABG pCO2 POC ABG pO2 ABG pO2 96.2 H ABG Hemoglobin 7.5 L ABG Oxyhemoglobin ABG Sodium ABG Potassium ABG Chloride ABG Glucose Carboxyhemoglobin Sodium Potassium Chloride Carbon Dioxide BUN Creatinine Glucose POC Glucose 197 H 251 H Lactic Acid Calcium Phosphorus Magnesium Ferritin AST ALT Alkaline Phosphatase Lactate Dehydrogenase Troponin T C-Reactive Protein Total Protein Albumin HDL Cholesterol Arterial Blood Glucose Arterial Blood Ionized Calcium Urine WBC (Auto) Urine Creatinine 05/29/21 05/29/21 05/30/21 18:23 23:31 04:10 WBC RBC Hgb Hct MCV MCH MCHC RDW Stephenson % (Auto) Stephenson # (Auto) Seg Neutrophils % Seg Neuts % (Manual) Lymphocytes % (Manual) Monocytes % (Manual) Seg Neutrophils # Seg Neutrophils # Man Lymphocytes # (Manual) Monocytes # (Manual) PT APTT D-Dimer Heparin Anti-Xa Level ABG pH 7.532 H POC ABG pCO2 30.0 L POC ABG pO2 78.5 L ABG pO2 ABG Hemoglobin 11.3 L ABG Oxyhemoglobin ABG Sodium 126.7 L ABG Potassium ABG Chloride 94.0 L ABG Glucose 270 H Carboxyhemoglobin 0.4 L Sodium Potassium Chloride Carbon Dioxide BUN Creatinine Glucose POC Glucose 236 H 252 H Lactic Acid Calcium Phosphorus Magnesium Ferritin AST ALT Alkaline Phosphatase Lactate Dehydrogenase Troponin T C-Reactive Protein Total Protein Albumin HDL Cholesterol Arterial Blood Glucose 270 H Arterial Blood Ionized Calcium 4.4 L Urine WBC (Auto) Urine Creatinine 05/30/21 05/30/21 05/30/21 05:06 06:23 11:15 WBC RBC Hgb Hct MCV MCH MCHC RDW Stephenson % (Auto) Stephenson # (Auto) Seg Neutrophils % Seg Neuts % (Manual) Lymphocytes % (Manual) Monocytes % (Manual) Seg Neutrophils # Seg Neutrophils # Man Lymphocytes # (Manual) Monocytes # (Manual) PT APTT D-Dimer Heparin Anti-Xa Level ABG pH POC ABG pCO2 POC ABG pO2 ABG pO2 ABG Hemoglobin ABG Oxyhemoglobin ABG Sodium ABG Potassium ABG Chloride ABG Glucose Carboxyhemoglobin Sodium 126 L D Potassium Chloride 91.9 L Carbon Dioxide 20 L D BUN Creatinine 0.4 L Glucose 274 H POC Glucose 242 H 346 H Lactic Acid Calcium Phosphorus Magnesium Ferritin AST ALT Alkaline Phosphatase Lactate Dehydrogenase Troponin T C-Reactive Protein Total Protein Albumin HDL Cholesterol Arterial Blood Glucose Arterial Blood Ionized Calcium Urine WBC (Auto) Urine Creatinine 05/30/21 05/30/21 05/30/21 11:19 11:19 11:19 WBC 18.9 H RBC 3.36 L Hgb Hct MCV 102 H MCH 33 H MCHC RDW 15.5 H Stephenson % (Auto) Stephenson # (Auto) Seg Neutrophils % Seg Neuts % (Manual) Lymphocytes % (Manual) Monocytes % (Manual) Seg Neutrophils # Seg Neutrophils # Man Lymphocytes # (Manual) Monocytes # (Manual) PT APTT D-Dimer Heparin Anti-Xa Level < 0.10 L ABG pH POC ABG pCO2 POC ABG pO2 ABG pO2 ABG Hemoglobin ABG Oxyhemoglobin ABG Sodium ABG Potassium ABG Chloride ABG Glucose Carboxyhemoglobin Sodium 124 L Potassium Chloride Carbon Dioxide BUN Creatinine Glucose POC Glucose Lactic Acid Calcium Phosphorus Magnesium Ferritin AST ALT Alkaline Phosphatase Lactate Dehydrogenase Troponin T C-Reactive Protein Total Protein Albumin HDL Cholesterol Arterial Blood Glucose Arterial Blood Ionized Calcium Urine WBC (Auto) Urine Creatinine 05/30/21 05/30/21 05/31/21 17:02 23:27 03:37 WBC RBC Hgb Hct MCV MCH MCHC RDW Stephenson % (Auto) Stephenson # (Auto) Seg Neutrophils % Seg Neuts % (Manual) Lymphocytes % (Manual) Monocytes % (Manual) Seg Neutrophils # Seg Neutrophils # Man Lymphocytes # (Manual) Monocytes # (Manual) PT APTT D-Dimer Heparin Anti-Xa Level ABG pH POC ABG pCO2 POC ABG pO2 ABG pO2 ABG Hemoglobin 11.6 L ABG Oxyhemoglobin ABG Sodium 130.0 L ABG Potassium ABG Chloride 95.0 L ABG Glucose 292 H Carboxyhemoglobin Sodium Potassium Chloride Carbon Dioxide BUN Creatinine Glucose POC Glucose 270 H 237 H Lactic Acid Calcium Phosphorus Magnesium Ferritin AST ALT Alkaline Phosphatase Lactate Dehydrogenase Troponin T C-Reactive Protein Total Protein Albumin HDL Cholesterol Arterial Blood Glucose 292 H Arterial Blood Ionized Calcium Urine WBC (Auto) Urine Creatinine 05/31/21 05/31/21 05/31/21 04:00 04:00 05:20 WBC 20.9 H RBC 3.13 L Hgb Hct MCV 99 H MCH 34 H MCHC RDW Stephenson % (Auto) Stephenson # (Auto) Seg Neutrophils % Seg Neuts % (Manual) 81.0 H Lymphocytes % (Manual) 8.0 L Monocytes % (Manual) 9.0 H Seg Neutrophils # Seg Neutrophils # Man 16.9 H Lymphocytes # (Manual) Monocytes # (Manual) 1.9 H PT APTT D-Dimer Heparin Anti-Xa Level ABG pH POC ABG pCO2 POC ABG pO2 ABG pO2 ABG Hemoglobin ABG Oxyhemoglobin ABG Sodium ABG Potassium ABG Chloride ABG Glucose Carboxyhemoglobin Sodium 133 L D Potassium Chloride 95.4 L Carbon Dioxide 21 L BUN 30 H Creatinine 0.5 L Glucose 305 H POC Glucose 269 H Lactic Acid Calcium Phosphorus Magnesium Ferritin AST ALT Alkaline Phosphatase Lactate Dehydrogenase Troponin T C-Reactive Protein Total Protein Albumin HDL Cholesterol Arterial Blood Glucose Arterial Blood Ionized Calcium Urine WBC (Auto) Urine Creatinine 05/31/21 05/31/21 05/31/21 11:40 18:16 23:25 WBC RBC Hgb Hct MCV MCH MCHC RDW Stephenson % (Auto) Stephenson # (Auto) Seg Neutrophils % Seg Neuts % (Manual) Lymphocytes % (Manual) Monocytes % (Manual) Seg Neutrophils # Seg Neutrophils # Man Lymphocytes # (Manual) Monocytes # (Manual) PT APTT D-Dimer Heparin Anti-Xa Level ABG pH POC ABG pCO2 POC ABG pO2 ABG pO2 ABG Hemoglobin ABG Oxyhemoglobin ABG Sodium ABG Potassium ABG Chloride ABG Glucose Carboxyhemoglobin Sodium Potassium Chloride Carbon Dioxide BUN Creatinine Glucose POC Glucose 364 H 250 H 231 H Lactic Acid Calcium Phosphorus Magnesium Ferritin AST ALT Alkaline Phosphatase Lactate Dehydrogenase Troponin T C-Reactive Protein Total Protein Albumin HDL Cholesterol Arterial Blood Glucose Arterial Blood Ionized Calcium Urine WBC (Auto) Urine Creatinine 06/01/21 06/01/21 06/01/21 04:03 04:58 04:58 WBC 20.7 H RBC 3.20 L Hgb Hct MCV 99 H MCH 34 H MCHC RDW Stephenson % (Auto) Stephenson # (Auto) Seg Neutrophils % Seg Neuts % (Manual) 82.0 H Lymphocytes % (Manual) 9.0 L Monocytes % (Manual) Seg Neutrophils # Seg Neutrophils # Man 17.0 H Lymphocytes # (Manual) Monocytes # (Manual) 1.4 H PT APTT D-Dimer Heparin Anti-Xa Level 1.18 H ABG pH 7.520 H POC ABG pCO2 POC ABG pO2 66.0 L ABG pO2 ABG Hemoglobin ABG Oxyhemoglobin 92.5 L ABG Sodium 133.6 L ABG Potassium ABG Chloride ABG Glucose 250 H Carboxyhemoglobin Sodium Potassium Chloride Carbon Dioxide BUN Creatinine Glucose POC Glucose Lactic Acid Calcium Phosphorus Magnesium Ferritin AST ALT Alkaline Phosphatase Lactate Dehydrogenase Troponin T C-Reactive Protein Total Protein Albumin HDL Cholesterol Arterial Blood Glucose 250 H Arterial Blood Ionized Calcium 4.4 L Urine WBC (Auto) Urine Creatinine 06/01/21 06/01/21 06/01/21 04:58 05:29 11:39 WBC RBC Hgb Hct MCV MCH MCHC RDW Stephenson % (Auto) Stephenson # (Auto) Seg Neutrophils % Seg Neuts % (Manual) Lymphocytes % (Manual) Monocytes % (Manual) Seg Neutrophils # Seg Neutrophils # Man Lymphocytes # (Manual) Monocytes # (Manual) PT APTT D-Dimer Heparin Anti-Xa Level ABG pH POC ABG pCO2 POC ABG pO2 ABG pO2 ABG Hemoglobin ABG Oxyhemoglobin ABG Sodium ABG Potassium ABG Chloride ABG Glucose Carboxyhemoglobin Sodium 131 L Potassium Chloride 95.7 L Carbon Dioxide BUN 30 H Creatinine 0.5 L Glucose 241 H POC Glucose 215 H 299 H Lactic Acid Calcium Phosphorus Magnesium Ferritin AST ALT Alkaline Phosphatase Lactate Dehydrogenase Troponin T C-Reactive Protein Total Protein Albumin HDL Cholesterol Arterial Blood Glucose Arterial Blood Ionized Calcium Urine WBC (Auto) Urine Creatinine 06/01/21 06/02/21 06/02/21 18:14 00:12 02:25 WBC 17.4 H RBC 3.09 L Hgb Hct MCV 101 H MCH 34 H MCHC RDW 15.5 H Stephenson % (Auto) Stephenson # (Auto) Seg Neutrophils % Seg Neuts % (Manual) Lymphocytes % (Manual) Monocytes % (Manual) Seg Neutrophils # Seg Neutrophils # Man Lymphocytes # (Manual) Monocytes # (Manual) PT APTT D-Dimer Heparin Anti-Xa Level ABG pH POC ABG pCO2 POC ABG pO2 ABG pO2 ABG Hemoglobin ABG Oxyhemoglobin ABG Sodium ABG Potassium ABG Chloride ABG Glucose Carboxyhemoglobin Sodium Potassium Chloride Carbon Dioxide BUN Creatinine Glucose POC Glucose 215 H 175 H Lactic Acid Calcium Phosphorus Magnesium Ferritin AST ALT Alkaline Phosphatase Lactate Dehydrogenase Troponin T C-Reactive Protein Total Protein Albumin HDL Cholesterol Arterial Blood Glucose Arterial Blood Ionized Calcium Urine WBC (Auto) Urine Creatinine 06/02/21 06/02/21 06/02/21 02:25 04:13 04:58 WBC RBC Hgb Hct MCV MCH MCHC RDW Stephenson % (Auto) Stephenson # (Auto) Seg Neutrophils % Seg Neuts % (Manual) Lymphocytes % (Manual) Monocytes % (Manual) Seg Neutrophils # Seg Neutrophils # Man Lymphocytes # (Manual) Monocytes # (Manual) PT APTT D-Dimer Heparin Anti-Xa Level ABG pH 7.481 H POC ABG pCO2 POC ABG pO2 80.0 L ABG pO2 ABG Hemoglobin 11.1 L ABG Oxyhemoglobin ABG Sodium 131.9 L ABG Potassium ABG Chloride ABG Glucose 231 H Carboxyhemoglobin 0.2 L Sodium 134 L Potassium Chloride 95.8 L Carbon Dioxide BUN 31 H Creatinine 0.5 L Glucose 168 H POC Glucose 230 H Lactic Acid Calcium Phosphorus Magnesium Ferritin AST ALT Alkaline Phosphatase Lactate Dehydrogenase Troponin T C-Reactive Protein Total Protein Albumin HDL Cholesterol Arterial Blood Glucose 231 H Arterial Blood Ionized Calcium Urine WBC (Auto) Urine Creatinine 06/02/21 06/02/21 06/02/21 11:27 17:47 23:53 WBC RBC Hgb Hct MCV MCH MCHC RDW Stephenson % (Auto) Stephenson # (Auto) Seg Neutrophils % Seg Neuts % (Manual) Lymphocytes % (Manual) Monocytes % (Manual) Seg Neutrophils # Seg Neutrophils # Man Lymphocytes # (Manual) Monocytes # (Manual) PT APTT D-Dimer Heparin Anti-Xa Level 0.80 H ABG pH POC ABG pCO2 POC ABG pO2 ABG pO2 ABG Hemoglobin ABG Oxyhemoglobin ABG Sodium ABG Potassium ABG Chloride ABG Glucose Carboxyhemoglobin Sodium Potassium Chloride Carbon Dioxide BUN Creatinine Glucose POC Glucose 259 H 297 H Lactic Acid Calcium Phosphorus Magnesium Ferritin AST ALT Alkaline Phosphatase Lactate Dehydrogenase Troponin T C-Reactive Protein Total Protein Albumin HDL Cholesterol Arterial Blood Glucose Arterial Blood Ionized Calcium Urine WBC (Auto) Urine Creatinine 06/03/21 06/03/21 06/03/21 00:05 05:23 09:10 WBC RBC Hgb Hct MCV MCH MCHC RDW [place] % (Auto) [place] # (Auto) Seg Neutrophils % Seg Neuts % (Manual) Lymphocytes % (Manual) Monocytes % (Manual) Seg Neutrophils # Seg Neutrophils # Man Lymphocytes # (Manual) Monocytes # (Manual) PT APTT D-Dimer Heparin Anti-Xa Level 0.84 H ABG pH POC ABG pCO2 POC ABG pO2 ABG pO2 ABG Hemoglobin ABG Oxyhemoglobin ABG Sodium ABG Potassium ABG Chloride ABG Glucose Carboxyhemoglobin Sodium Potassium Chloride Carbon Dioxide BUN Creatinine Glucose POC Glucose 268 H 170 H Lactic Acid Calcium Phosphorus Magnesium Ferritin AST ALT Alkaline Phosphatase Lactate Dehydrogenase Troponin T C-Reactive Protein Total Protein Albumin HDL Cholesterol Arterial Blood Glucose Arterial Blood Ionized Calcium Urine WBC (Auto) Urine Creatinine 06/03/21 06/03/21 06/03/21 12:06 20:22 23:30 WBC RBC Hgb Hct MCV MCH MCHC RDW [place] % (Auto) [place] # (Auto) Seg Neutrophils % Seg Neuts % (Manual) Lymphocytes % (Manual) Monocytes % (Manual) Seg Neutrophils # Seg Neutrophils # Man Lymphocytes # (Manual) Monocytes # (Manual) PT APTT D-Dimer Heparin Anti-Xa Level ABG pH POC ABG pCO2 POC ABG pO2 ABG pO2 ABG Hemoglobin ABG Oxyhemoglobin ABG Sodium ABG Potassium ABG Chloride ABG Glucose Carboxyhemoglobin Sodium Potassium Chloride Carbon Dioxide BUN Creatinine Glucose POC Glucose 275 H 260 H 215 H Lactic Acid Calcium Phosphorus Magnesium Ferritin AST ALT Alkaline Phosphatase Lactate Dehydrogenase Troponin T C-Reactive Protein Total Protein Albumin HDL Cholesterol Arterial Blood Glucose Arterial Blood Ionized Calcium Urine WBC (Auto) Urine Creatinine 06/04/21 06/04/21 06/04/21 05:03 05:57 05:57 WBC 17.8 H RBC 2.83 L Hgb 9.6 L Hct 28.4 L MCV 100 H MCH 34 H MCHC RDW 15.5 H [place] % (Auto) [place] # (Auto) Seg Neutrophils % Seg Neuts % (Manual) 83.0 H Lymphocytes % (Manual) 4.0 L Monocytes % (Manual) Seg Neutrophils # Seg Neutrophils # Man 14.8 H Lymphocytes # (Manual) 0.7 L Monocytes # (Manual) 1.1 H PT APTT D-Dimer Heparin Anti-Xa Level ABG pH POC ABG pCO2 POC ABG pO2 ABG pO2 ABG Hemoglobin ABG Oxyhemoglobin ABG Sodium ABG Potassium ABG Chloride ABG Glucose Carboxyhemoglobin Sodium 135 L Potassium Chloride 96.3 L Carbon Dioxide BUN 51 H Creatinine Glucose 275 H POC Glucose 257 H Lactic Acid Calcium Phosphorus Magnesium Ferritin AST ALT Alkaline Phosphatase Lactate Dehydrogenase Troponin T C-Reactive Protein Total Protein Albumin HDL Cholesterol Arterial Blood Glucose Arterial Blood Ionized Calcium Urine WBC (Auto) Urine Creatinine 06/04/21 06/04/21 06/04/21 09:48 11:08 17:33 WBC RBC Hgb Hct MCV MCH MCHC RDW [place] % (Auto) [place] # (Auto) Seg Neutrophils % Seg Neuts % (Manual) Lymphocytes % (Manual) Monocytes % (Manual) Seg Neutrophils # Seg Neutrophils # Man Lymphocytes # (Manual) Monocytes # (Manual) PT APTT D-Dimer Heparin Anti-Xa Level ABG pH POC ABG pCO2 POC ABG pO2 ABG pO2 ABG Hemoglobin ABG Oxyhemoglobin ABG Sodium ABG Potassium ABG Chloride ABG Glucose Carboxyhemoglobin Sodium Potassium Chloride Carbon Dioxide BUN Creatinine Glucose POC Glucose 198 H 234 H 247 H Lactic Acid Calcium Phosphorus Magnesium Ferritin AST ALT Alkaline Phosphatase Lactate Dehydrogenase Troponin T C-Reactive Protein Total Protein Albumin HDL Cholesterol Arterial Blood Glucose Arterial Blood Ionized Calcium Urine WBC (Auto) Urine Creatinine 06/04/21 06/05/21 06/05/21 23:30 05:38 11:24 WBC RBC Hgb Hct MCV MCH MCHC RDW [place] % (Auto) [place] # (Auto) Seg Neutrophils % Seg Neuts % (Manual) Lymphocytes % (Manual) Monocytes % (Manual) Seg Neutrophils # Seg Neutrophils # Man Lymphocytes # (Manual) Monocytes # (Manual) PT APTT D-Dimer Heparin Anti-Xa Level ABG pH POC ABG pCO2 POC ABG pO2 ABG pO2 ABG Hemoglobin ABG Oxyhemoglobin ABG Sodium ABG Potassium ABG Chloride ABG Glucose Carboxyhemoglobin Sodium Potassium Chloride Carbon Dioxide BUN Creatinine Glucose POC Glucose 192 H 192 H 287 H Lactic Acid Calcium Phosphorus Magnesium Ferritin AST ALT Alkaline Phosphatase Lactate Dehydrogenase Troponin T C-Reactive Protein Total Protein Albumin HDL Cholesterol Arterial Blood Glucose Arterial Blood Ionized Calcium Urine WBC (Auto) Urine Creatinine 06/05/21 06/05/21 06/05/21 12:20 12:20 12:20 WBC 16.2 H RBC 2.56 L Hgb 8.8 L Hct 25.2 L MCV 98 H MCH 35 H MCHC 35 H RDW 15.3 H [place] % (Auto) [place] # (Auto) Seg Neutrophils % Seg Neuts % (Manual) Lymphocytes % (Manual) Monocytes % (Manual) Seg Neutrophils # Seg Neutrophils # Man Lymphocytes # (Manual) Monocytes # (Manual) PT APTT 72.2 H* D-Dimer Heparin Anti-Xa Level ABG pH POC ABG pCO2 POC ABG pO2 ABG pO2 ABG Hemoglobin ABG Oxyhemoglobin ABG Sodium ABG Potassium ABG Chloride ABG Glucose Carboxyhemoglobin Sodium 133 L Potassium Chloride 95.3 L Carbon Dioxide BUN 57 H Creatinine Glucose 313 H POC Glucose Lactic Acid Calcium Phosphorus Magnesium Ferritin AST 90 H ALT 79 H Alkaline Phosphatase 262 H Lactate Dehydrogenase Troponin T C-Reactive Protein Total Protein Albumin 2.7 L HDL Cholesterol Arterial Blood Glucose Arterial Blood Ionized Calcium Urine WBC (Auto) Urine Creatinine 06/05/21 06/05/21 06/05/21 17:50 22:57 23:36 WBC RBC Hgb Hct MCV MCH MCHC RDW [place] % (Auto) [place] # (Auto) Seg Neutrophils % Seg Neuts % (Manual) Lymphocytes % (Manual) Monocytes % (Manual) Seg Neutrophils # Seg Neutrophils # Man Lymphocytes # (Manual) Monocytes # (Manual) PT APTT D-Dimer Heparin Anti-Xa Level 0.28 L ABG pH POC ABG pCO2 POC ABG pO2 ABG pO2 ABG Hemoglobin ABG Oxyhemoglobin ABG Sodium ABG Potassium ABG Chloride ABG Glucose Carboxyhemoglobin Sodium Potassium Chloride Carbon Dioxide BUN Creatinine Glucose POC Glucose 275 H 223 H Lactic Acid Calcium Phosphorus Magnesium Ferritin AST ALT Alkaline Phosphatase Lactate Dehydrogenase Troponin T C-Reactive Protein Total Protein Albumin HDL Cholesterol Arterial Blood Glucose Arterial Blood Ionized Calcium Urine WBC (Auto) Urine Creatinine 06/06/21 06/06/21 06/06/21 04:57 04:57 05:02 WBC 15.7 H RBC 2.77 L Hgb 9.4 L Hct 27.2 L MCV 98 H MCH 34 H MCHC RDW 15.4 H [place] % (Auto) [place] # (Auto) Seg Neutrophils % Seg Neuts % (Manual) Lymphocytes % (Manual) Monocytes % (Manual) Seg Neutrophils # Seg Neutrophils # Man Lymphocytes # (Manual) Monocytes # (Manual) PT APTT D-Dimer Heparin Anti-Xa Level ABG pH POC ABG pCO2 POC ABG pO2 ABG pO2 ABG Hemoglobin ABG Oxyhemoglobin ABG Sodium ABG Potassium ABG Chloride ABG Glucose Carboxyhemoglobin Sodium Potassium 5.7 H Chloride Carbon Dioxide BUN 57 H Creatinine Glucose 245 H POC Glucose 217 H Lactic Acid Calcium Phosphorus Magnesium Ferritin AST 99 H ALT 136 H Alkaline Phosphatase 312 H Lactate Dehydrogenase Troponin T C-Reactive Protein Total Protein 6.1 L Albumin 3.1 L HDL Cholesterol Arterial Blood Glucose Arterial Blood Ionized Calcium Urine WBC (Auto) Urine Creatinine 06/06/21 06/06/21 06/06/21 11:37 17:34 18:09 WBC RBC Hgb Hct MCV MCH MCHC RDW [place] % (Auto) [place] # (Auto) Seg Neutrophils % Seg Neuts % (Manual) Lymphocytes % (Manual) Monocytes % (Manual) Seg Neutrophils # Seg Neutrophils # Man Lymphocytes # (Manual) Monocytes # (Manual) PT APTT D-Dimer Heparin Anti-Xa Level ABG pH POC ABG pCO2 POC ABG pO2 ABG pO2 ABG Hemoglobin ABG Oxyhemoglobin ABG Sodium ABG Potassium ABG Chloride ABG Glucose Carboxyhemoglobin Sodium Potassium 5.2 H Chloride Carbon Dioxide BUN 48 H Creatinine Glucose 245 H POC Glucose 251 H 217 H Lactic Acid Calcium Phosphorus Magnesium Ferritin AST ALT Alkaline Phosphatase Lactate Dehydrogenase Troponin T C-Reactive Protein Total Protein Albumin HDL Cholesterol Arterial Blood Glucose Arterial Blood Ionized Calcium Urine WBC (Auto) Urine Creatinine 06/06/21 06/07/21 06/07/21 23:53 04:45 04:45 WBC 21.5 H RBC 2.71 L Hgb 9.0 L Hct 26.9 L MCV 99 H MCH 33 H MCHC RDW 15.3 H [place] % (Auto) [place] # (Auto) Seg Neutrophils % Seg Neuts % (Manual) Lymphocytes % (Manual) Monocytes % (Manual) Seg Neutrophils # Seg Neutrophils # Man Lymphocytes # (Manual) Monocytes # (Manual) PT APTT D-Dimer Heparin Anti-Xa Level 0.10 L ABG pH POC ABG pCO2 POC ABG pO2 ABG pO2 ABG Hemoglobin ABG Oxyhemoglobin ABG Sodium ABG Potassium ABG Chloride ABG Glucose Carboxyhemoglobin Sodium Potassium Chloride Carbon Dioxide BUN Creatinine Glucose POC Glucose 224 H Lactic Acid Calcium Phosphorus Magnesium Ferritin AST ALT Alkaline Phosphatase Lactate Dehydrogenase Troponin T C-Reactive Protein Total Protein Albumin HDL Cholesterol Arterial Blood Glucose Arterial Blood Ionized Calcium Urine WBC (Auto) Urine Creatinine 06/07/21 06/07/21 06/07/21 04:45 05:11 11:50 WBC RBC Hgb Hct MCV MCH MCHC RDW [place] % (Auto) [place] # (Auto) Seg Neutrophils % Seg Neuts % (Manual) Lymphocytes % (Manual) Monocytes % (Manual) Seg Neutrophils # Seg Neutrophils # Man Lymphocytes # (Manual) Monocytes # (Manual) PT APTT D-Dimer Heparin Anti-Xa Level ABG pH POC ABG pCO2 POC ABG pO2 ABG pO2 ABG Hemoglobin ABG Oxyhemoglobin ABG Sodium ABG Potassium ABG Chloride ABG Glucose Carboxyhemoglobin Sodium Potassium 5.4 H Chloride Carbon Dioxide BUN 55 H Creatinine Glucose 178 H POC Glucose 156 H 118 H Lactic Acid Calcium Phosphorus Magnesium Ferritin AST ALT Alkaline Phosphatase Lactate Dehydrogenase Troponin T C-Reactive Protein Total Protein Albumin HDL Cholesterol Arterial Blood Glucose Arterial Blood Ionized Calcium Urine WBC (Auto) Urine Creatinine 06/07/21 06/07/21 06/07/21 14:52 17:45 20:43 WBC RBC Hgb Hct MCV MCH MCHC RDW [place] % (Auto) [place] # (Auto) Seg Neutrophils % Seg Neuts % (Manual) Lymphocytes % (Manual) Monocytes % (Manual) Seg Neutrophils # Seg Neutrophils # Man Lymphocytes # (Manual) Monocytes # (Manual) PT APTT D-Dimer Heparin Anti-Xa Level 0.73 H ABG pH POC ABG pCO2 POC ABG pO2 ABG pO2 ABG Hemoglobin ABG Oxyhemoglobin ABG Sodium ABG Potassium ABG Chloride ABG Glucose Carboxyhemoglobin Sodium Potassium Chloride Carbon Dioxide BUN Creatinine Glucose POC Glucose 164 H Lactic Acid Calcium Phosphorus Magnesium Ferritin AST ALT Alkaline Phosphatase Lactate Dehydrogenase Troponin T C-Reactive Protein 28.90 H Total Protein Albumin HDL Cholesterol Arterial Blood Glucose Arterial Blood Ionized Calcium Urine WBC (Auto) Urine Creatinine 06/07/21 06/08/21 06/08/21 23:15 04:25 04:25 WBC 15.8 H RBC 2.58 L Hgb 8.6 L Hct 25.7 L MCV 100 H MCH 33 H MCHC RDW [place] % (Auto) [place] # (Auto) Seg Neutrophils % Seg Neuts % (Manual) 76.0 H Lymphocytes % (Manual) 6.0 L Monocytes % (Manual) 8.0 H Seg Neutrophils # Seg Neutrophils # Man 12.0 H Lymphocytes # (Manual) 0.9 L Monocytes # (Manual) 1.3 H PT APTT D-Dimer Heparin Anti-Xa Level ABG pH POC ABG pCO2 POC ABG pO2 ABG pO2 ABG Hemoglobin ABG Oxyhemoglobin ABG Sodium ABG Potassium ABG Chloride ABG Glucose Carboxyhemoglobin Sodium Potassium Chloride Carbon Dioxide BUN 65 H Creatinine Glucose 205 H POC Glucose 236 H Lactic Acid Calcium Phosphorus Magnesium Ferritin AST ALT Alkaline Phosphatase Lactate Dehydrogenase Troponin T C-Reactive Protein Total Protein Albumin HDL Cholesterol Arterial Blood Glucose Arterial Blood Ionized Calcium Urine WBC (Auto) Urine Creatinine 06/08/21 06/08/21 06/08/21 05:36 11:18 17:41 WBC RBC Hgb Hct MCV MCH MCHC RDW [place] % (Auto) [place] # (Auto) Seg Neutrophils % Seg Neuts % (Manual) Lymphocytes % (Manual) Monocytes % (Manual) Seg Neutrophils # Seg Neutrophils # Man Lymphocytes # (Manual) Monocytes # (Manual) PT APTT D-Dimer Heparin Anti-Xa Level ABG pH POC ABG pCO2 POC ABG pO2 ABG pO2 ABG Hemoglobin ABG Oxyhemoglobin ABG Sodium ABG Potassium ABG Chloride ABG Glucose Carboxyhemoglobin Sodium Potassium Chloride Carbon Dioxide BUN Creatinine Glucose POC Glucose 185 H 203 H 173 H Lactic Acid Calcium Phosphorus Magnesium Ferritin AST ALT Alkaline Phosphatase Lactate Dehydrogenase Troponin T C-Reactive Protein Total Protein Albumin HDL Cholesterol Arterial Blood Glucose Arterial Blood Ionized Calcium Urine WBC (Auto) Urine Creatinine 06/08/21 06/09/21 06/09/21 23:34 05:16 05:20 WBC 15.0 H RBC 2.54 L Hgb 8.5 L Hct 25.2 L MCV 99 H MCH 33 H MCHC RDW [place] % (Auto) [place] # (Auto) Seg Neutrophils % Seg Neuts % (Manual) Lymphocytes % (Manual) Monocytes % (Manual) Seg Neutrophils # Seg Neutrophils # Man Lymphocytes # (Manual) Monocytes # (Manual) PT APTT D-Dimer Heparin Anti-Xa Level ABG pH POC ABG pCO2 POC ABG pO2 ABG pO2 ABG Hemoglobin ABG Oxyhemoglobin ABG Sodium ABG Potassium ABG Chloride ABG Glucose Carboxyhemoglobin Sodium Potassium Chloride Carbon Dioxide BUN Creatinine Glucose POC Glucose 200 H 154 H Lactic Acid Calcium Phosphorus Magnesium Ferritin AST ALT Alkaline Phosphatase Lactate Dehydrogenase Troponin T C-Reactive Protein Total Protein Albumin HDL Cholesterol Arterial Blood Glucose Arterial Blood Ionized Calcium Urine WBC (Auto) Urine Creatinine 06/09/21 06/09/21 06/09/21 05:20 11:40 17:09 WBC RBC Hgb Hct MCV MCH MCHC RDW [place] % (Auto) [place] # (Auto) Seg Neutrophils % Seg Neuts % (Manual) Lymphocytes % (Manual) Monocytes % (Manual) Seg Neutrophils # Seg Neutrophils # Man Lymphocytes # (Manual) Monocytes # (Manual) PT APTT D-Dimer Heparin Anti-Xa Level ABG pH POC ABG pCO2 POC ABG pO2 ABG pO2 ABG Hemoglobin ABG Oxyhemoglobin ABG Sodium ABG Potassium ABG Chloride ABG Glucose Carboxyhemoglobin Sodium Potassium 5.2 H Chloride Carbon Dioxide BUN 69 H Creatinine Glucose 163 H POC Glucose 232 H 137 H Lactic Acid Calcium Phosphorus Magnesium Ferritin AST ALT Alkaline Phosphatase Lactate Dehydrogenase Troponin T C-Reactive Protein Total Protein Albumin HDL Cholesterol Arterial Blood Glucose Arterial Blood Ionized Calcium Urine WBC (Auto) Urine Creatinine 06/09/21 06/10/21 06/10/21 23:31 04:42 04:42 WBC 14.5 H RBC 2.41 L Hgb 8.2 L Hct 24.0 L MCV 100 H MCH 34 H MCHC RDW 15.8 H [place] % (Auto) [place] # (Auto) Seg Neutrophils % Seg Neuts % (Manual) Lymphocytes % (Manual) Monocytes % (Manual) Seg Neutrophils # Seg Neutrophils # Man Lymphocytes # (Manual) Monocytes # (Manual) PT APTT D-Dimer Heparin Anti-Xa Level ABG pH POC ABG pCO2 POC ABG pO2 ABG pO2 ABG Hemoglobin ABG Oxyhemoglobin ABG Sodium ABG Potassium ABG Chloride ABG Glucose Carboxyhemoglobin Sodium 146 H D Potassium 3.4 L D Chloride Carbon Dioxide BUN 62 H Creatinine Glucose 174 H POC Glucose 162 H Lactic Acid Calcium Phosphorus Magnesium Ferritin AST ALT Alkaline Phosphatase Lactate Dehydrogenase Troponin T C-Reactive Protein Total Protein Albumin HDL Cholesterol Arterial Blood Glucose Arterial Blood Ionized Calcium Urine WBC (Auto) Urine Creatinine 06/10/21 06/10/21 06/10/21 05:36 11:43 18:24 WBC RBC Hgb Hct MCV MCH MCHC RDW [place] % (Auto) [place] # (Auto) Seg Neutrophils % Seg Neuts % (Manual) Lymphocytes % (Manual) Monocytes % (Manual) Seg Neutrophils # Seg Neutrophils # Man Lymphocytes # (Manual) Monocytes # (Manual) PT APTT D-Dimer Heparin Anti-Xa Level ABG pH POC ABG pCO2 POC ABG pO2 ABG pO2 ABG Hemoglobin ABG Oxyhemoglobin ABG Sodium ABG Potassium ABG Chloride ABG Glucose Carboxyhemoglobin Sodium Potassium Chloride Carbon Dioxide BUN Creatinine Glucose POC Glucose 149 H 183 H 139 H Lactic Acid Calcium Phosphorus Magnesium Ferritin AST ALT Alkaline Phosphatase Lactate Dehydrogenase Troponin T C-Reactive Protein Total Protein Albumin HDL Cholesterol Arterial Blood Glucose Arterial Blood Ionized Calcium Urine WBC (Auto) Urine Creatinine 06/10/21 06/11/21 06/11/21 23:32 04:17 05:22 WBC RBC Hgb Hct MCV MCH MCHC RDW [place] % (Auto) [place] # (Auto) Seg Neutrophils % Seg Neuts % (Manual) Lymphocytes % (Manual) Monocytes % (Manual) Seg Neutrophils # Seg Neutrophils # Man Lymphocytes # (Manual) Monocytes # (Manual) PT APTT D-Dimer Heparin Anti-Xa Level 0.84 H ABG pH POC ABG pCO2 POC ABG pO2 ABG pO2 ABG Hemoglobin ABG Oxyhemoglobin ABG Sodium ABG Potassium ABG Chloride ABG Glucose Carboxyhemoglobin Sodium Potassium Chloride Carbon Dioxide BUN Creatinine Glucose POC Glucose 149 H 138 H Lactic Acid Calcium Phosphorus Magnesium Ferritin AST ALT Alkaline Phosphatase Lactate Dehydrogenase Troponin T C-Reactive Protein Total Protein Albumin HDL Cholesterol Arterial Blood Glucose Arterial Blood Ionized Calcium Urine WBC (Auto) Urine Creatinine 06/11/21 06/11/21 06/12/21 11:26 23:56 04:44 WBC 15.5 H RBC 2.59 L Hgb 8.6 L Hct 25.8 L MCV 100 H MCH 33 H MCHC RDW 15.3 H [place] % (Auto) [place] # (Auto) Seg Neutrophils % Seg Neuts % (Manual) Lymphocytes % (Manual) Monocytes % (Manual) Seg Neutrophils # Seg Neutrophils # Man Lymphocytes # (Manual) Monocytes # (Manual) PT APTT D-Dimer Heparin Anti-Xa Level ABG pH POC ABG pCO2 POC ABG pO2 ABG pO2 ABG Hemoglobin ABG Oxyhemoglobin ABG Sodium ABG Potassium ABG Chloride ABG Glucose Carboxyhemoglobin Sodium Potassium Chloride Carbon Dioxide BUN Creatinine Glucose POC Glucose 198 H 199 H Lactic Acid Calcium Phosphorus Magnesium Ferritin AST ALT Alkaline Phosphatase Lactate Dehydrogenase Troponin T C-Reactive Protein Total Protein Albumin HDL Cholesterol Arterial Blood Glucose Arterial Blood Ionized Calcium Urine WBC (Auto) Urine Creatinine 06/12/21 06/12/21 06/12/21 04:44 04:44 05:29 WBC RBC Hgb Hct MCV MCH MCHC RDW [place] % (Auto) [place] # (Auto) Seg Neutrophils % Seg Neuts % (Manual) Lymphocytes % (Manual) Monocytes % (Manual) Seg Neutrophils # Seg Neutrophils # Man Lymphocytes # (Manual) Monocytes # (Manual) PT APTT D-Dimer Heparin Anti-Xa Level ABG pH POC ABG pCO2 POC ABG pO2 ABG pO2 ABG Hemoglobin ABG Oxyhemoglobin ABG Sodium ABG Potassium ABG Chloride ABG Glucose Carboxyhemoglobin Sodium 148 H Potassium Chloride Carbon Dioxide BUN 49 H 51 H Creatinine Glucose 222 H 223 H POC Glucose 193 H Lactic Acid Calcium Phosphorus Magnesium 3.20 H Ferritin AST 81 H ALT 83 H Alkaline Phosphatase 215 H Lactate Dehydrogenase Troponin T C-Reactive Protein Total Protein Albumin 3.2 L HDL Cholesterol Arterial Blood Glucose Arterial Blood Ionized Calcium Urine WBC (Auto) Urine Creatinine 06/12/21 06/12/21 06/12/21 11:21 17:55 23:23 WBC RBC Hgb Hct MCV MCH MCHC RDW [place] % (Auto) [place] # (Auto) Seg Neutrophils % Seg Neuts % (Manual) Lymphocytes % (Manual) Monocytes % (Manual) Seg Neutrophils # Seg Neutrophils # Man Lymphocytes # (Manual) Monocytes # (Manual) PT APTT D-Dimer Heparin Anti-Xa Level ABG pH POC ABG pCO2 POC ABG pO2 ABG pO2 ABG Hemoglobin ABG Oxyhemoglobin ABG Sodium ABG Potassium ABG Chloride ABG Glucose Carboxyhemoglobin Sodium Potassium Chloride Carbon Dioxide BUN Creatinine Glucose POC Glucose 185 H 210 H 211 H Lactic Acid Calcium Phosphorus Magnesium Ferritin AST ALT Alkaline Phosphatase Lactate Dehydrogenase Troponin T C-Reactive Protein Total Protein Albumin HDL Cholesterol Arterial Blood Glucose Arterial Blood Ionized Calcium Urine WBC (Auto) Urine Creatinine 06/13/21 06/13/21 06/13/21 04:34 04:34 05:17 WBC 17.2 H RBC 2.56 L Hgb 8.6 L Hct 26.1 L MCV 102 H MCH 34 H MCHC RDW [place] % (Auto) [place] # (Auto) Seg Neutrophils % Seg Neuts % (Manual) Lymphocytes % (Manual) Monocytes % (Manual) Seg Neutrophils # Seg Neutrophils # Man Lymphocytes # (Manual) Monocytes # (Manual) PT APTT D-Dimer Heparin Anti-Xa Level ABG pH POC ABG pCO2 POC ABG pO2 ABG pO2 ABG Hemoglobin ABG Oxyhemoglobin ABG Sodium ABG Potassium ABG Chloride ABG Glucose Carboxyhemoglobin Sodium 149 H Potassium 5.1 H Chloride Carbon Dioxide BUN 52 H Creatinine 1.6 H Glucose 231 H POC Glucose 207 H Lactic Acid Calcium Phosphorus Magnesium Ferritin AST 69 H ALT 74 H Alkaline Phosphatase 197 H Lactate Dehydrogenase Troponin T C-Reactive Protein Total Protein Albumin 3.0 L HDL Cholesterol Arterial Blood Glucose Arterial Blood Ionized Calcium Urine WBC (Auto) Urine Creatinine 06/13/21 06/13/21 06/13/21 10:44 11:07 12:07 WBC RBC Hgb Hct MCV MCH MCHC RDW [place] % (Auto) [place] # (Auto) Seg Neutrophils % Seg Neuts % (Manual) Lymphocytes % (Manual) Monocytes % (Manual) Seg Neutrophils # Seg Neutrophils # Man Lymphocytes # (Manual) Monocytes # (Manual) PT APTT D-Dimer Heparin Anti-Xa Level < 0.10 L ABG pH 7.455 H POC ABG pCO2 POC ABG pO2 ABG pO2 ABG Hemoglobin 8.6 L ABG Oxyhemoglobin ABG Sodium ABG Potassium 4.7 H ABG Chloride ABG Glucose 277 H Carboxyhemoglobin Sodium Potassium Chloride Carbon Dioxide BUN Creatinine Glucose POC Glucose 241 H Lactic Acid Calcium Phosphorus Magnesium Ferritin AST ALT Alkaline Phosphatase Lactate Dehydrogenase Troponin T C-Reactive Protein Total Protein Albumin HDL Cholesterol Arterial Blood Glucose 277 H Arterial Blood Ionized Calcium Urine WBC (Auto) Urine Creatinine 06/13/21 06/13/21 06/13/21 17:35 21:13 23:19 WBC RBC Hgb Hct MCV MCH MCHC RDW [place] % (Auto) [place] # (Auto) Seg Neutrophils % Seg Neuts % (Manual) Lymphocytes % (Manual) Monocytes % (Manual) Seg Neutrophils # Seg Neutrophils # Man Lymphocytes # (Manual) Monocytes # (Manual) PT APTT D-Dimer Heparin Anti-Xa Level 0.92 H ABG pH POC ABG pCO2 POC ABG pO2 ABG pO2 ABG Hemoglobin ABG Oxyhemoglobin ABG Sodium ABG Potassium ABG Chloride ABG Glucose Carboxyhemoglobin Sodium Potassium Chloride Carbon Dioxide BUN Creatinine Glucose POC Glucose 233 H 232 H Lactic Acid Calcium Phosphorus Magnesium Ferritin AST ALT Alkaline Phosphatase Lactate Dehydrogenase Troponin T C-Reactive Protein Total Protein Albumin HDL Cholesterol Arterial Blood Glucose Arterial Blood Ionized Calcium Urine WBC (Auto) Urine Creatinine 06/14/21 06/14/21 06/14/21 04:21 04:21 05:36 WBC 15.6 H RBC 2.26 L Hgb 7.6 L Hct 22.9 L MCV 101 H MCH 34 H MCHC RDW 15.3 H [place] % (Auto) [place] # (Auto) Seg Neutrophils % Seg Neuts % (Manual) Lymphocytes % (Manual) Monocytes % (Manual) Seg Neutrophils # Seg Neutrophils # Man Lymphocytes # (Manual) Monocytes # (Manual) PT APTT D-Dimer Heparin Anti-Xa Level ABG pH POC ABG pCO2 POC ABG pO2 ABG pO2 ABG Hemoglobin ABG Oxyhemoglobin ABG Sodium ABG Potassium ABG Chloride ABG Glucose Carboxyhemoglobin Sodium 149 H Potassium Chloride 107.8 H Carbon Dioxide BUN 66 H Creatinine 1.8 H Glucose 192 H POC Glucose 166 H Lactic Acid Calcium Phosphorus Magnesium Ferritin AST ALT Alkaline Phosphatase Lactate Dehydrogenase Troponin T C-Reactive Protein Total Protein Albumin HDL Cholesterol Arterial Blood Glucose Arterial Blood Ionized Calcium Urine WBC (Auto) Urine Creatinine 06/14/21 06/14/21 06/14/21 12:21 17:07 23:14 WBC RBC Hgb Hct MCV MCH MCHC RDW [place] % (Auto) [place] # (Auto) Seg Neutrophils % Seg Neuts % (Manual) Lymphocytes % (Manual) Monocytes % (Manual) Seg Neutrophils # Seg Neutrophils # Man Lymphocytes # (Manual) Monocytes # (Manual) PT APTT D-Dimer Heparin Anti-Xa Level ABG pH POC ABG pCO2 POC ABG pO2 ABG pO2 ABG Hemoglobin ABG Oxyhemoglobin ABG Sodium ABG Potassium ABG Chloride ABG Glucose Carboxyhemoglobin Sodium Potassium Chloride Carbon Dioxide BUN Creatinine Glucose POC Glucose 190 H 172 H 195 H Lactic Acid Calcium Phosphorus Magnesium Ferritin AST ALT Alkaline Phosphatase Lactate Dehydrogenase Troponin T C-Reactive Protein Total Protein Albumin HDL Cholesterol Arterial Blood Glucose Arterial Blood Ionized Calcium Urine WBC (Auto) Urine Creatinine 06/15/21 06/15/21 06/15/21 05:08 05:08 05:47 WBC 15.3 H RBC 2.23 L Hgb 7.3 L Hct 22.5 L MCV 101 H MCH 33 H MCHC RDW [place] % (Auto) [place] # (Auto) Seg Neutrophils % Seg Neuts % (Manual) Lymphocytes % (Manual) Monocytes % (Manual) Seg Neutrophils # Seg Neutrophils # Man Lymphocytes # (Manual) Monocytes # (Manual) PT APTT D-Dimer Heparin Anti-Xa Level ABG pH POC ABG pCO2 POC ABG pO2 ABG pO2 ABG Hemoglobin ABG Oxyhemoglobin ABG Sodium ABG Potassium ABG Chloride ABG Glucose Carboxyhemoglobin Sodium 147 H Potassium Chloride Carbon Dioxide BUN 60 H Creatinine 1.6 H Glucose 158 H POC Glucose 150 H Lactic Acid Calcium 8.2 L Phosphorus 5.90 H Magnesium 3.20 H Ferritin AST ALT Alkaline Phosphatase Lactate Dehydrogenase Troponin T C-Reactive Protein Total Protein Albumin HDL Cholesterol Arterial Blood Glucose Arterial Blood Ionized Calcium Urine WBC (Auto) Urine Creatinine 06/15/21 06/15/21 06/15/21 10:19 11:25 17:47 WBC RBC Hgb Hct MCV MCH MCHC RDW [place] % (Auto) [place] # (Auto) Seg Neutrophils % Seg Neuts % (Manual) Lymphocytes % (Manual) Monocytes % (Manual) Seg Neutrophils # Seg Neutrophils # Man Lymphocytes # (Manual) Monocytes # (Manual) PT APTT D-Dimer Heparin Anti-Xa Level ABG pH 7.471 H POC ABG pCO2 POC ABG pO2 ABG pO2 ABG Hemoglobin ABG Oxyhemoglobin ABG Sodium ABG Potassium ABG Chloride ABG Glucose Carboxyhemoglobin Sodium Potassium Chloride Carbon Dioxide BUN Creatinine Glucose POC Glucose 133 H 201 H Lactic Acid Calcium Phosphorus Magnesium Ferritin AST ALT Alkaline Phosphatase Lactate Dehydrogenase Troponin T C-Reactive Protein Total Protein Albumin HDL Cholesterol Arterial Blood Glucose Arterial Blood Ionized Calcium Urine WBC (Auto) Urine Creatinine 06/15/21 06/15/21 06/16/21 23:43 Unknown 04:31 WBC 13.8 H RBC 2.23 L Hgb 7.5 L Hct 22.4 L MCV 101 H MCH 34 H MCHC RDW Stephenson % (Auto) Stephenson # (Auto) Seg Neutrophils % Seg Neuts % (Manual) Lymphocytes % (Manual) Monocytes % (Manual) Seg Neutrophils # Seg Neutrophils # Man Lymphocytes # (Manual) Monocytes # (Manual) PT APTT D-Dimer Heparin Anti-Xa Level ABG pH POC ABG pCO2 POC ABG pO2 ABG pO2 ABG Hemoglobin ABG Oxyhemoglobin ABG Sodium ABG Potassium ABG Chloride ABG Glucose Carboxyhemoglobin Sodium Potassium Chloride Carbon Dioxide BUN Creatinine Glucose POC Glucose 148 H Lactic Acid Calcium Phosphorus Magnesium Ferritin AST ALT Alkaline Phosphatase Lactate Dehydrogenase Troponin T C-Reactive Protein Total Protein Albumin HDL Cholesterol Arterial Blood Glucose Arterial Blood Ionized Calcium Urine WBC (Auto) Urine Creatinine 74.7 H 06/16/21 06/16/21 06/16/21 04:31 05:48 11:47 WBC RBC Hgb Hct MCV MCH MCHC RDW [place] % (Auto) Stephenson # (Auto) Seg Neutrophils % Seg Neuts % (Manual) Lymphocytes % (Manual) Monocytes % (Manual) Seg Neutrophils # Seg Neutrophils # Man Lymphocytes # (Manual) Monocytes # (Manual) PT APTT D-Dimer Heparin Anti-Xa Level ABG pH POC ABG pCO2 POC ABG pO2 ABG pO2 ABG Hemoglobin ABG Oxyhemoglobin ABG Sodium ABG Potassium ABG Chloride ABG Glucose Carboxyhemoglobin Sodium Potassium Chloride Carbon Dioxide BUN 49 H Creatinine 1.3 H Glucose 194 H POC Glucose 184 H 190 H Lactic Acid Calcium Phosphorus 5.40 H Magnesium 2.90 H Ferritin AST ALT Alkaline Phosphatase Lactate Dehydrogenase Troponin T C-Reactive Protein Total Protein Albumin HDL Cholesterol Arterial Blood Glucose Arterial Blood Ionized Calcium Urine WBC (Auto) Urine Creatinine 06/16/21 06/16/21 06/16/21 18:51 18:51 23:13 WBC 12.4 H RBC 2.22 L Hgb 7.3 L Hct 22.4 L MCV 101 H MCH 33 H MCHC RDW [place] % (Auto) Stephenson # (Auto) Seg Neutrophils % Seg Neuts % (Manual) Lymphocytes % (Manual) Monocytes % (Manual) Seg Neutrophils # Seg Neutrophils # Man Lymphocytes # (Manual) Monocytes # (Manual) PT APTT 64.1 H* D-Dimer Heparin Anti-Xa Level ABG pH POC ABG pCO2 POC ABG pO2 ABG pO2 ABG Hemoglobin ABG Oxyhemoglobin ABG Sodium ABG Potassium ABG Chloride ABG Glucose Carboxyhemoglobin Sodium Potassium Chloride Carbon Dioxide BUN Creatinine Glucose POC Glucose 160 H Lactic Acid Calcium Phosphorus Magnesium Ferritin AST ALT Alkaline Phosphatase Lactate Dehydrogenase Troponin T C-Reactive Protein Total Protein Albumin HDL Cholesterol Arterial Blood Glucose Arterial Blood Ionized Calcium Urine WBC (Auto) Urine Creatinine 06/17/21 06/17/21 06/17/21 04:19 05:02 11:56 WBC RBC Hgb Hct MCV MCH MCHC RDW [place] % (Auto) Stephenson # (Auto) Seg Neutrophils % Seg Neuts % (Manual) Lymphocytes % (Manual) Monocytes % (Manual) Seg Neutrophils # Seg Neutrophils # Man Lymphocytes # (Manual) Monocytes # (Manual) PT APTT D-Dimer Heparin Anti-Xa Level 1.53 H ABG pH POC ABG pCO2 POC ABG pO2 ABG pO2 ABG Hemoglobin ABG Oxyhemoglobin ABG Sodium ABG Potassium ABG Chloride ABG Glucose Carboxyhemoglobin Sodium Potassium Chloride Carbon Dioxide BUN Creatinine Glucose POC Glucose 167 H 166 H Lactic Acid Calcium Phosphorus Magnesium Ferritin AST ALT Alkaline Phosphatase Lactate Dehydrogenase Troponin T C-Reactive Protein Total Protein Albumin HDL Cholesterol Arterial Blood Glucose Arterial Blood Ionized Calcium Urine WBC (Auto) Urine Creatinine 06/17/21 06/17/21 06/17/21 17:48 22:42 23:08 WBC RBC Hgb Hct MCV MCH MCHC RDW [place] % (Auto) Stephenson # (Auto) Seg Neutrophils % Seg Neuts % (Manual) Lymphocytes % (Manual) Monocytes % (Manual) Seg Neutrophils # Seg Neutrophils # Man Lymphocytes # (Manual) Monocytes # (Manual) PT APTT D-Dimer Heparin Anti-Xa Level ABG pH POC ABG pCO2 POC ABG pO2 ABG pO2 ABG Hemoglobin ABG Oxyhemoglobin ABG Sodium ABG Potassium ABG Chloride ABG Glucose Carboxyhemoglobin Sodium Potassium Chloride Carbon Dioxide BUN Creatinine Glucose POC Glucose 159 H 122 H 114 H Lactic Acid Calcium Phosphorus Magnesium Ferritin AST ALT Alkaline Phosphatase Lactate Dehydrogenase Troponin T C-Reactive Protein Total Protein Albumin HDL Cholesterol Arterial Blood Glucose Arterial Blood Ionized Calcium Urine WBC (Auto) Urine Creatinine 06/18/21 06/18/21 06/18/21 05:40 06:20 13:11 WBC RBC 2.19 L Hgb 7.3 L Hct 21.9 L MCV 100 H MCH 33 H MCHC RDW [place] % (Auto) Stephenson # (Auto) Seg Neutrophils % Seg Neuts % (Manual) Lymphocytes % (Manual) Monocytes % (Manual) Seg Neutrophils # Seg Neutrophils # Man Lymphocytes # (Manual) Monocytes # (Manual) PT APTT D-Dimer Heparin Anti-Xa Level ABG pH POC ABG pCO2 POC ABG pO2 ABG pO2 ABG Hemoglobin ABG Oxyhemoglobin ABG Sodium ABG Potassium ABG Chloride ABG Glucose Carboxyhemoglobin Sodium Potassium Chloride Carbon Dioxide BUN Creatinine Glucose POC Glucose 174 H 149 H Lactic Acid Calcium Phosphorus Magnesium Ferritin AST ALT Alkaline Phosphatase Lactate Dehydrogenase Troponin T C-Reactive Protein Total Protein Albumin HDL Cholesterol Arterial Blood Glucose Arterial Blood Ionized Calcium Urine WBC (Auto) Urine Creatinine 06/18/21 06/18/21 06/18/21 18:50 21:45 23:12 WBC RBC Hgb Hct MCV MCH MCHC RDW [place] % (Auto) Stephenson # (Auto) Seg Neutrophils % Seg Neuts % (Manual) Lymphocytes % (Manual) Monocytes % (Manual) Seg Neutrophils # Seg Neutrophils # Man Lymphocytes # (Manual) Monocytes # (Manual) PT APTT D-Dimer Heparin Anti-Xa Level ABG pH POC ABG pCO2 POC ABG pO2 ABG pO2 ABG Hemoglobin ABG Oxyhemoglobin ABG Sodium ABG Potassium ABG Chloride ABG Glucose Carboxyhemoglobin Sodium Potassium Chloride Carbon Dioxide BUN Creatinine Glucose POC Glucose 152 H 151 H 178 H Lactic Acid Calcium Phosphorus Magnesium Ferritin AST ALT Alkaline Phosphatase Lactate Dehydrogenase Troponin T C-Reactive Protein Total Protein Albumin HDL Cholesterol Arterial Blood Glucose Arterial Blood Ionized Calcium Urine WBC (Auto) Urine Creatinine 06/19/21 06/19/21 06/19/21 06:20 06:20 11:54 WBC RBC 2.19 L Hgb 7.4 L Hct 22.2 L MCV 102 H MCH 34 H MCHC RDW Stephen[place] % (Auto) 11.3 H Stephenson # (Auto) 1.0 H Seg Neutrophils % Seg Neuts % (Manual) Lymphocytes % (Manual) Monocytes % (Manual) Seg Neutrophils # Seg Neutrophils # Man Lymphocytes # (Manual) Monocytes # (Manual) PT APTT D-Dimer Heparin Anti-Xa Level ABG pH POC ABG pCO2 POC ABG pO2 ABG pO2 ABG Hemoglobin ABG Oxyhemoglobin ABG Sodium ABG Potassium ABG Chloride ABG Glucose Carboxyhemoglobin Sodium 148 H Potassium Chloride 109.4 H Carbon Dioxide BUN 26 H Creatinine Glucose 109 H POC Glucose 131 H Lactic Acid Calcium Phosphorus Magnesium 2.40 H Ferritin AST ALT Alkaline Phosphatase Lactate Dehydrogenase Troponin T C-Reactive Protein Total Protein Albumin HDL Cholesterol Arterial Blood Glucose Arterial Blood Ionized Calcium Urine WBC (Auto) Urine Creatinine 06/19/21 06/19/21 06/19/21 17:21 21:31 23:13 WBC RBC Hgb Hct MCV MCH MCHC RDW [place] % (Auto) Stephenson # (Auto) Seg Neutrophils % Seg Neuts % (Manual) Lymphocytes % (Manual) Monocytes % (Manual) Seg Neutrophils # Seg Neutrophils # Man Lymphocytes # (Manual) Monocytes # (Manual) PT APTT D-Dimer Heparin Anti-Xa Level ABG pH POC ABG pCO2 POC ABG pO2 ABG pO2 ABG Hemoglobin ABG Oxyhemoglobin ABG Sodium ABG Potassium ABG Chloride ABG Glucose Carboxyhemoglobin Sodium Potassium Chloride Carbon Dioxide BUN Creatinine Glucose POC Glucose 178 H 174 H 216 H Lactic Acid Calcium Phosphorus Magnesium Ferritin AST ALT Alkaline Phosphatase Lactate Dehydrogenase Troponin T C-Reactive Protein Total Protein Albumin HDL Cholesterol Arterial Blood Glucose Arterial Blood Ionized Calcium Urine WBC (Auto) Urine Creatinine 06/20/21 06/20/21 06/20/21 04:18 05:15 11:22 WBC RBC 2.26 L Hgb 7.7 L Hct 22.9 L MCV 101 H MCH 34 H MCHC RDW [place] % (Auto) Stephenson # (Auto) Seg Neutrophils % Seg Neuts % (Manual) Lymphocytes % (Manual) Monocytes % (Manual) Seg Neutrophils # Seg Neutrophils # Man Lymphocytes # (Manual) Monocytes # (Manual) PT APTT D-Dimer Heparin Anti-Xa Level ABG pH POC ABG pCO2 POC ABG pO2 ABG pO2 ABG Hemoglobin ABG Oxyhemoglobin ABG Sodium ABG Potassium ABG Chloride ABG Glucose Carboxyhemoglobin Sodium Potassium Chloride Carbon Dioxide BUN Creatinine Glucose POC Glucose 119 H 177 H Lactic Acid Calcium Phosphorus Magnesium Ferritin AST ALT Alkaline Phosphatase Lactate Dehydrogenase Troponin T C-Reactive Protein Total Protein Albumin HDL Cholesterol Arterial Blood Glucose Arterial Blood Ionized Calcium Urine WBC (Auto) Urine Creatinine 06/20/21 06/20/21 06/20/21 13:30 17:58 21:24 WBC RBC Hgb Hct MCV MCH MCHC RDW Stephen[place] % (Auto) Stephenson # (Auto) Seg Neutrophils % Seg Neuts % (Manual) Lymphocytes % (Manual) Monocytes % (Manual) Seg Neutrophils # Seg Neutrophils # Man Lymphocytes # (Manual) Monocytes # (Manual) PT APTT D-Dimer Heparin Anti-Xa Level ABG pH POC ABG pCO2 POC ABG pO2 ABG pO2 ABG Hemoglobin ABG Oxyhemoglobin ABG Sodium ABG Potassium ABG Chloride ABG Glucose Carboxyhemoglobin Sodium Potassium Chloride Carbon Dioxide BUN 31 H Creatinine Glucose 196 H POC Glucose 151 H 141 H Lactic Acid Calcium Phosphorus Magnesium Ferritin AST ALT Alkaline Phosphatase Lactate Dehydrogenase Troponin T C-Reactive Protein Total Protein Albumin HDL Cholesterol Arterial Blood Glucose Arterial Blood Ionized Calcium Urine WBC (Auto) Urine Creatinine 06/20/21 06/21/21 06/21/21 23:46 04:07 04:59 WBC RBC Hgb Hct MCV MCH MCHC RDW [place] % (Auto) Stephen[place] # (Auto) Seg Neutrophils % Seg Neuts % (Manual) Lymphocytes % (Manual) Monocytes % (Manual) Seg Neutrophils # Seg Neutrophils # Man Lymphocytes # (Manual) Monocytes # (Manual) PT APTT D-Dimer Heparin Anti-Xa Level ABG pH POC ABG pCO2 POC ABG pO2 ABG pO2 ABG Hemoglobin ABG Oxyhemoglobin ABG Sodium ABG Potassium ABG Chloride ABG Glucose Carboxyhemoglobin Sodium Potassium Chloride Carbon Dioxide BUN 36 H Creatinine Glucose 220 H POC Glucose 137 H 213 H Lactic Acid Calcium Phosphorus Magnesium Ferritin AST 79 H ALT 79 H Alkaline Phosphatase 159 H Lactate Dehydrogenase Troponin T C-Reactive Protein Total Protein Albumin 2.6 L HDL Cholesterol Arterial Blood Glucose Arterial Blood Ionized Calcium Urine WBC (Auto) Urine Creatinine 06/21/21 06/21/21 06/21/21 08:10 11:45 17:18 WBC RBC 2.13 L Hgb 7.4 L Hct 21.1 L MCV 99 H MCH 35 H MCHC 35 H RDW Stephen[place] % (Auto) 9.3 H Stephenson # (Auto) 0.9 H Seg Neutrophils % Seg Neuts % (Manual) Lymphocytes % (Manual) Monocytes % (Manual) Seg Neutrophils # Seg Neutrophils # Man Lymphocytes # (Manual) Monocytes # (Manual) PT APTT D-Dimer Heparin Anti-Xa Level ABG pH POC ABG pCO2 POC ABG pO2 ABG pO2 ABG Hemoglobin ABG Oxyhemoglobin ABG Sodium ABG Potassium ABG Chloride ABG Glucose Carboxyhemoglobin Sodium Potassium Chloride Carbon Dioxide BUN Creatinine Glucose POC Glucose 176 H 129 H Lactic Acid Calcium Phosphorus Magnesium Ferritin AST ALT Alkaline Phosphatase Lactate Dehydrogenase Troponin T C-Reactive Protein Total Protein Albumin HDL Cholesterol Arterial Blood Glucose Arterial Blood Ionized Calcium Urine WBC (Auto) Urine Creatinine 06/21/21 06/22/21 06/22/21 23:02 04:36 04:36 WBC RBC 2.38 L Hgb 8.0 L Hct 23.7 L MCV 100 H MCH 33 H MCHC RDW [place] % (Auto) Stephen[place] # (Auto) Seg Neutrophils % Seg Neuts % (Manual) Lymphocytes % (Manual) Monocytes % (Manual) Seg Neutrophils # Seg Neutrophils # Man Lymphocytes # (Manual) Monocytes # (Manual) PT APTT D-Dimer Heparin Anti-Xa Level ABG pH POC ABG pCO2 POC ABG pO2 ABG pO2 ABG Hemoglobin ABG Oxyhemoglobin ABG Sodium ABG Potassium ABG Chloride ABG Glucose Carboxyhemoglobin Sodium Potassium Chloride Carbon Dioxide BUN 36 H Creatinine Glucose 167 H POC Glucose 111 H Lactic Acid Calcium Phosphorus Magnesium Ferritin AST ALT Alkaline Phosphatase Lactate Dehydrogenase Troponin T C-Reactive Protein Total Protein Albumin HDL Cholesterol Arterial Blood Glucose Arterial Blood Ionized Calcium Urine WBC (Auto) Urine Creatinine 06/22/21 06/22/21 06/22/21 05:22 12:12 18:17 WBC RBC Hgb Hct MCV MCH MCHC RDW [place] % (Auto) [place] # (Auto) Seg Neutrophils % Seg Neuts % (Manual) Lymphocytes % (Manual) Monocytes % (Manual) Seg Neutrophils # Seg Neutrophils # Man Lymphocytes # (Manual) Monocytes # (Manual) PT APTT D-Dimer Heparin Anti-Xa Level ABG pH POC ABG pCO2 POC ABG pO2 ABG pO2 ABG Hemoglobin ABG Oxyhemoglobin ABG Sodium ABG Potassium ABG Chloride ABG Glucose Carboxyhemoglobin Sodium Potassium Chloride Carbon Dioxide BUN Creatinine Glucose POC Glucose 160 H 176 H 161 H Lactic Acid Calcium Phosphorus Magnesium Ferritin AST ALT Alkaline Phosphatase Lactate Dehydrogenase Troponin T C-Reactive Protein Total Protein Albumin HDL Cholesterol Arterial Blood Glucose Arterial Blood Ionized Calcium Urine WBC (Auto) Urine Creatinine 06/22/21 06/22/21 06/23/21 21:30 22:29 04:00 WBC RBC 2.22 L Hgb 7.5 L Hct 22.4 L MCV 101 H MCH 34 H MCHC RDW [place] % (Auto) [place] # (Auto) Seg Neutrophils % Seg Neuts % (Manual) Lymphocytes % (Manual) Monocytes % (Manual) Seg Neutrophils # Seg Neutrophils # Man Lymphocytes # (Manual) Monocytes # (Manual) PT APTT D-Dimer Heparin Anti-Xa Level ABG pH POC ABG pCO2 POC ABG pO2 ABG pO2 ABG Hemoglobin ABG Oxyhemoglobin ABG Sodium ABG Potassium ABG Chloride ABG Glucose Carboxyhemoglobin Sodium Potassium Chloride Carbon Dioxide BUN Creatinine Glucose POC Glucose 175 H 222 H Lactic Acid Calcium Phosphorus Magnesium Ferritin AST ALT Alkaline Phosphatase Lactate Dehydrogenase Troponin T C-Reactive Protein Total Protein Albumin HDL Cholesterol Arterial Blood Glucose Arterial Blood Ionized Calcium Urine WBC (Auto) Urine Creatinine 06/23/21 06/23/21 06/23/21 04:00 05:09 10:50 WBC RBC Hgb Hct MCV MCH MCHC RDW [place] % (Auto) [place] # (Auto) Seg Neutrophils % Seg Neuts % (Manual) Lymphocytes % (Manual) Monocytes % (Manual) Seg Neutrophils # Seg Neutrophils # Man Lymphocytes # (Manual) Monocytes # (Manual) PT APTT D-Dimer Heparin Anti-Xa Level ABG pH 7.484 H POC ABG pCO2 POC ABG pO2 ABG pO2 ABG Hemoglobin 7.1 L ABG Oxyhemoglobin ABG Sodium ABG Potassium 4.6 H ABG Chloride ABG Glucose 158 H Carboxyhemoglobin Sodium Potassium 5.2 H Chloride Carbon Dioxide BUN 43 H Creatinine 1.3 H Glucose 237 H POC Glucose 212 H Lactic Acid Calcium Phosphorus Magnesium Ferritin AST ALT Alkaline Phosphatase Lactate Dehydrogenase Troponin T C-Reactive Protein Total Protein Albumin HDL Cholesterol Arterial Blood Glucose 158 H Arterial Blood Ionized Calcium 4.3 L Urine WBC (Auto) Urine Creatinine 06/23/21 06/23/21 06/23/21 12:16 17:03 23:27 WBC RBC Hgb Hct MCV MCH MCHC RDW [place] % (Auto) [place] # (Auto) Seg Neutrophils % Seg Neuts % (Manual) Lymphocytes % (Manual) Monocytes % (Manual) Seg Neutrophils # Seg Neutrophils # Man Lymphocytes # (Manual) Monocytes # (Manual) PT APTT D-Dimer Heparin Anti-Xa Level ABG pH POC ABG pCO2 POC ABG pO2 ABG pO2 ABG Hemoglobin ABG Oxyhemoglobin ABG Sodium ABG Potassium ABG Chloride ABG Glucose Carboxyhemoglobin Sodium Potassium Chloride Carbon Dioxide BUN Creatinine Glucose POC Glucose 144 H 199 H 250 H Lactic Acid Calcium Phosphorus Magnesium Ferritin AST ALT Alkaline Phosphatase Lactate Dehydrogenase Troponin T C-Reactive Protein Total Protein Albumin HDL Cholesterol Arterial Blood Glucose Arterial Blood Ionized Calcium Urine WBC (Auto) Urine Creatinine 06/24/21 06/24/21 06/24/21 04:40 04:40 05:21 WBC RBC 2.07 L Hgb 7.1 L Hct 20.4 L MCV 99 H MCH 34 H MCHC 35 H RDW [place] % (Auto) [place] # (Auto) Seg Neutrophils % Seg Neuts % (Manual) Lymphocytes % (Manual) Monocytes % (Manual) Seg Neutrophils # Seg Neutrophils # Man Lymphocytes # (Manual) Monocytes # (Manual) PT APTT D-Dimer Heparin Anti-Xa Level ABG pH POC ABG pCO2 POC ABG pO2 ABG pO2 ABG Hemoglobin ABG Oxyhemoglobin ABG Sodium ABG Potassium ABG Chloride ABG Glucose Carboxyhemoglobin Sodium Potassium Chloride Carbon Dioxide BUN 45 H Creatinine Glucose 229 H POC Glucose 192 H Lactic Acid Calcium Phosphorus Magnesium Ferritin AST 83 H ALT 80 H Alkaline Phosphatase 142 H Lactate Dehydrogenase Troponin T C-Reactive Protein Total Protein Albumin 2.8 L HDL Cholesterol Arterial Blood Glucose Arterial Blood Ionized Calcium Urine WBC (Auto) Urine Creatinine 06/24/21 12:11 WBC RBC Hgb Hct MCV MCH MCHC RDW [place] % (Auto) [place] # (Auto) Seg Neutrophils % Seg Neuts % (Manual) Lymphocytes % (Manual) Monocytes % (Manual) Seg Neutrophils # Seg Neutrophils # Man Lymphocytes # (Manual) Monocytes # (Manual) PT APTT D-Dimer Heparin Anti-Xa Level ABG pH POC ABG pCO2 POC ABG pO2 ABG pO2 ABG Hemoglobin ABG Oxyhemoglobin ABG Sodium ABG Potassium ABG Chloride ABG Glucose Carboxyhemoglobin Sodium Potassium Chloride Carbon Dioxide BUN Creatinine Glucose POC Glucose 197 H Lactic Acid Calcium Phosphorus Magnesium Ferritin AST ALT Alkaline Phosphatase Lactate Dehydrogenase Troponin T C-Reactive Protein Total Protein Albumin HDL Cholesterol Arterial Blood Glucose Arterial Blood Ionized Calcium Urine WBC (Auto) Urine Creatinine Allied health notes reviewed: RT
--- NOTE | 2021-06-24 16:08 | XRay Report ---
ABDOMEN 1 VIEW INDICATION / CLINICAL INFORMATION: Vomiting. COMPARISON: Radiographs dated 06/21/2021 FINDINGS: TUBES / LINES: Gastrostomy tube projects over the expected region the stomach. BOWEL GAS PATTERN: No significant abnormality. FREE AIR / EXTRALUMINAL GAS: None seen. ADDITIONAL FINDINGS: No significant additional findings. IMPRESSION: 1. No significant abnormality. Signer Name: Eldon Harris MD Signed: 06/24/2021 4:04 PM Workstation Name: [id number]
--- NOTE | 2021-06-24 17:24 | Progress Note ---
Assessment and Plan This is a 65 year old female with HTN, nonepileptic spells, PTSD, close head injury, DM, CAD s/p stents and MA, independence, hyperlipidemia admitted with sepsis, pneumonia, acute proximal respiratory failure, toxic metabolic encephalopathy, suspected anoxic brain injury, metabolic acidosis Assessment and Plan: --S/p cardiac arrest, A. fib with RVR, h/o HTN -Currently on Labetalol, Hydralazine, valsartan, & Doxazosin -PRN hydral IV -Cardiology consulted, appreciate recommendations -05/2020 dobutamine thallium stress test showed normal perfusion study. -05/2020 echo showed normal left ventricular systolic function. -NIBP per protocol --Toxic metabolic encephalopathy, likely anoxic brain injury with bilateral watershed infarct, tonic-cloninc seziure; h/o nonepileptic spells, PTSD, closed head injury -Neurology consulted, appreciate recommendations -CT head completed->see results, without acute or large territorial infarct -Per neurology: MRI brain is suggestive of water shed Infarct Bilateral -- mostly related to Hypoperfusion -06/01 repeat MRI brain noted, possible subacute ischemic changes. -Intact cough/gag, pupils sluggish -Keppra -EEG showed no signs of seizure -prn ativan -Patient is off sedation, open eyes spontaneously, pupils reactive, with +gag and cough. -Not following commands, no movement to stimuli --Acute hypoxic respiratory failure -[facility] consulted, appreciate recommendations - s/p trach on 06/12 -06/15 T piece trials started, currently on T-piece -Tolerated Tpiece trial for over 24hrs -ABG/CXR per [facility] -Continuous SP02 monitoring for SPO2 above 92% -Scopalamine and robinul for secretions -Now transferred to telemetry -- protein -aspen malnutrition -Ntr consult for TF -PEG placed 06/12 - 06/22 KUB with no acute abnormality -PPI- Pepcid -BR: senokot, maalox, colace; prn dulcolax -BM: 06/22 -- Acute renal injury likely 2/2 to vasomotor nephrology -Renal function remains stable -strict I&O -daily weights -purwick -Trend BMP -Monitor and replete electrolytes as needed -FWF 100 q 4hours -hypernatremia and Cr slightly improving --Hyperglycemia, h/o DM -SSI -Lantus, titrate as needed -Avoid hypoglycemia -accucheck q6 -- Leukocytosis, likely stress-induced and from underlying pneumonia -CTA chest without evidence of PE -IV heparin d/t afib -transitioned to PO Eliquis -Trend CBC -Transfuse for hgb<7 --Sepsis, Bilateral Lower Lobe Infiltrates/community-acquired pneumonia -COVID 19 PCR (-) -s/p cefepime 05/25-05/29 -admit cxr with infiltrates, CTA chest with dense dependent consolidation/atelectasis in lungs -Monitor temp and WBC curve -noted spike in temp overnight -CXR, Blood culture, UA, 06/19Sputum culture pos. Ecoli -BC/UC/Tracheal aspirate NGTD from 05/25 -Covid 19 PCR negative -06/07 CRP 28.90 and procal 0.36 -Tracheal aspirate gram-negative rods, empiric antibiotics cefepime ordered, follow culture sensitivities - Cefepine switch to rocephin per sensitivity -Consider ID evaluation if febrile --DVT prophylaxis --Full CODE STATUS Hospital Course to Date: 05/26/21: Updated family at the bedside, Covid test is negative. Will order EEG and neuro consult. Remains intubated, follow clinically. Sedated on Midazolam and Propofol, just received one dose of Lorazepam for witnessed seizure by RN. NSR now, on heparin drip 05/27/21; remains intubated. pending EEG and neuro eval. wean off vent as tolerated. Continue heparin drip per cardiology, replete potassium yesterday, follow BMP. BP noted to be elevated, next started on antihypertensives. 05/28/21; BP noted to be elevated, initiated on antihypertensive, remains intubated. Pending neurology evaluation and EEG. Continue supportive care, follow BMP. 05/29/21: Ordered for MRI brain, continue Keppra, pending EEG. Appreciate neuro recommendation. follow BMP, tolerating TF 05/30/21: Patient remains intubated, pending MRI brain, follow neurology recommendation. EEG showed diffuse slowing. 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 off sedation now, cont to follow. gurded prognosis 06/01: MRI was suggestive of watershed infarct bilaterally and was seen by isha sanders and recommend to do MRI with gadolinium. Patient is off sedation and still unresponsive. Prognosis is guarded. 06/02: Continue current management. Prognosis is guarded. Patient needs trach. 06/03: Patient is unresponsive spite of all sedatives. Prognosis is guarded to poor. Neurology consult appreciated. 06/04: Patient is unresponsive. Patient is off sedatives. Blood sugar is uncont rolled and I adjusted her insulin. Neurology consult appreciated. Prognosis is guarded to poor. 06/05/21- Patient remains ETT and on vent support. Off sedation with some improvement in neuro status, but is not following commands. Patient is tolerating SBT trial this am, still on the heparin gtt. AM labs is pending. Patient is still hyperglycemic, increased Qhs lantus. Continue supportive care. 06/06/21- Patient is intubated and on the vent. No longer on sedation, awake but unresponsive, tolerating SBT. Hyperglycemia this am, X1 dose of kayaxalate orderd. Persistent hyperglycemia, insulin adjusted. Continue to monitor electrolytes, repeat BMP this afternoon and am labs ordered. 06/07/21- Patient remains intubated and on the vent. Neuro status is unchanged, spontaneously open yes but is not following commands. SBT trial again, plan to place back on a rate overnight. Leukocytosis noted from this morning lab, stat procalc and CRP ordered, d/w CCM no abx at this time. K 5.4 today, kayalalxate given. Continue to monitor leukocytosis and electrolytes. Am labs ordered 06/08/21- Patient remains intubated and on the vent with no significant change in her neuro status. Patient with no BM in 7days, abdominal soft with positive bowel sounds, colace added and PRN ducolax Supp PRN. Continue to monitor leukocytosis and electrolytes, am labs ordered. Plan for trach and PEG, surgery consulted. 06/09/21- Patient remains stable, intubated with no significant change in neuro status. Trach and Peg cancelled for today. Plan for possibly next week. Hyperkalemia again today, chart review for possible meds interaction. X1 dose of kayexalate ordered. Still no BM today. Episode of emesis today, TF held and NGT to LIS until tommorrow. Orders place for KUB today and Chest XR for the morning. Morning labs ordered. 06/10: Continue supportive care. Trach and PEG planned for early next week. KUB and x-ray with no significant change. Opacity still persist. Critical care management noted. Patient still persistent leukocytosis we will continue to monitor mild hypokalemia noted will replace with potassium. Also noted mild hypernatremia. Agree with holding tube feeds at this time 06/11: Discussed with nursing staff to change to history trickle feeds. Patient is planned for trach and PEG Saturday or Saturday. Continue current management al so discussed to hold heparin drip for planned procedure with noted timeframe. We will recheck labs to ensure correction of electrolytes. 06/12/21- Patient's status is unchanged. No significant events overnight. Plan for trach and PEG today. TF and heparin gtt on hold. Continue supportive care. Continue to monitor electrolytes, am labs ordered. 06/13/21- Patient is s/p trach and PEG. D/w surgery okay to use PEGTube and restart TF. Heparin gtt was also restarted per protocol. Persistent hyperna tremia and FWF increased for 48hrs, mild hyperkalemia noted no intervention at this time. Continue to monitor renal function and electrolytes, am labs ordered. 06/14: Transition to PO anticoagulation from heparin gtt tomorrow. plan to place on tpiece tomorrow. 06/15: Patient spiked a temp today and was root cultured, h/h decreasing and stool occult ordered. Increase in insulin. T piece trials today. Small volume emesis x2 06/16; patient is on T-piece, On heparin drip for A. fib, will transition to Eliquis , I discussed the case with orthotic/prosthetic practitioner 06/17; tracheal cultures positive for gram-negative rods, ordered cefepime, follow cultures Consider ID consult 06/18 no significant change, patient receiving cefepime[sputum cultures gram- negative rods] Follow sensitivities, ID if needed 06/19- Patient was place on Tpiece this morning, plan for Tpiece for 12hrs and rest on the vent overnight. Patient remains afebrile, leukocytosis improved, and patient remains on empiric IV abx. D/W CCM possible ID consult if worsen. 06/20- No significant change in patient status. Patient is tolerating Tpiece, plan to rest on the vent overnight. Patient TMAX 99.8, leukocytosis remains stable, cefepine transition to Rocephin for +Ecoli in sputum. Consider ID co nsult if febrile. Will continue to monitor, am labs ordered 06/21- Patient remains stable on the vent, continue daily tpiece trial for 12 hrs then rest on the vent at night. Low grade temp noted TMAx 100.7, d/w CCM ID consult placed for further recommendations. Continue current IV abx for now. Will continue to monitor, am labs ordered. 06/22- Patient is tolerating tpiece @28% and 6L, SPO2 @100%. Vomited yesterday, KUB and CXR are unremarkable, reglan added Q8hrs. Plan to stay on Tpiece overnig ht, repeat ABG at 2100. Will continue to monitor 06/23- Patient tolerated Tpiece for over 24hrs, today's ABG noted, d/w CCM patient is stable to be transfer to telemetry. Slight hyperkalemia noted, X1 dose of kayaxalate ordered, renal function remains stable. Per case management, patient was denied for LTACH and Rehab, plan for possible SNF placement at this time. Continue to monitor renal function and electrolytes. 06/24: Continue supportive care, LTAC placement denied. Plan for possible SNF placement continue to provide supportive care Subjective Date of service: 06/24/21 Principal diagnosis: Ac hypoxemic resp failure; Cardiac arrest; Seizures; Sepsis; AMS; A-Fib RVR Interval history: Patient seen and examined. Medical records and medication list reviewed. Pt is on T-piece, off sedation, on TF Discussed plan of care at bedside with patient.s RN Pending placement Objective - Exam Narrative Exam: General appearance: Present: Remains on T-piece, does not follow command, nonverbal - EENT Eyes: Present: PERRL - Respiratory Respiratory effort: normal Respiratory: bilateral: diminished - Cardiovascular Rhythm: regular Heart Sounds: Present: S1 & S2 - Extremities Extremities: no ischemia, pulses intact, pulses symmetrical Extremity abnormal: edema - Peripheral Assessment Generalized Edema Type: Non-pitting Edema Degree: 1+ Capillary Refill: < 3 seconds Skin Temperature: Warm Peripheral Pulses: within normal limits - Abdominal General gastrointestinal: soft, non-tender, normal bowel sounds - Integumentary Integumentary: Present: clear, warm, dry - Psychiatric Psychiatric: other ([facility]) - Neurologic Neurologic: other ([facility]) - Allied Health Allied health notes reviewed: nursing - Constitutional Vitals: Vital Signs - 12hr 06/24/21 06/24/21 06/24/21 08:40 10:46 10:47 Temperature 97.4 F L Pulse Rate 81 81 81 Respiratory 16 Rate Blood Pressure 134/60 134/60 134/60 O2 Sat by Pulse 100 Oximetry 06/24/21 06/24/21 06/24/21 10:48 13:15 16:11 Temperature 97.9 F 98.0 F Pulse Rate 81 86 81 Respiratory 20 18 Rate Blood Pressure 134/60 132/62 118/53 O2 Sat by Pulse 96 100 Oximetry - Labs CBC & Chem 7: 06/24/21 04:40 06/24/21 04:40 Labs: Abnormal lab results 06/23/21 06/24/21 06/24/21 Range/Units 23:27 04:40 04:40 RBC 2.07 L (3.65-5.03) M/mm3 Hgb 7.1 L (10.1-14.3) gm/dl Hct 20.4 L (30.3-42.9) % MCV 99 H (79-97) fl MCH 34 H (28-32) pg MCHC 35 H (30-34) % BUN 45 H (7-17) mg/dL Glucose 229 H (65-100) mg/dL POC Glucose 250 H (70-105) mg/dL AST 83 H (5-40) units/L ALT 80 H (7-56) units/L Alkaline Phosphatase 142 H (35-129) units/L Albumin 2.8 L (3.9-5) g/dL 06/24/21 06/24/21 Range/Units 05:21 12:11 RBC (3.65-5.03) M/mm3 Hgb (10.1-14.3) gm/dl Hct (30.3-42.9) % MCV (79-97) fl MCH (28-32) pg MCHC (30-34) % BUN (7-17) mg/dL Glucose (65-100) mg/dL POC Glucose 192 H 197 H (70-105) mg/dL AST (5-40) units/L ALT (7-56) units/L Alkaline Phosphatase (35-129) units/L Albumin (3.9-5) g/dL HEART Score - HEART Score Troponin: Troponin T 0.226 ng/mL (0.00-0.029) H* D 05/25/21 15:19
[2021-06-25] MEDS: INSULIN LISPRO 100 UNIT/ML SUB-Q SCH ×5 (00:46→22:20)
[2021-06-25] MEDS: FREE WATER PO SCH ×7 (00:47→22:14)
[2021-06-25] MEDS: hydrALAZINE 25 MG TAB PO SCH ×3 (06:46→22:24)
[2021-06-25] MEDS: GLYCOPYRROLATE 2 MG TAB PO SCH ×3 (06:46→22:12)
[2021-06-25] MEDS: METOCLOPRAMIDE 10 MG/2 ML INJ IV SCH ×3 (06:48→22:13)
[2021-06-25] MEDS: POLYETHYLENE GLYCOL 3350 17 GM POWDER PO SCH (09:12)
[2021-06-25] MEDS: levETIRAcetam 500 MG/5 ML ORAL LIQD FEEDTUBE SCH ×2 (09:13→22:12)
[2021-06-25] MEDS: DOXAZOSIN 1 MG TAB PO SCH ×2 (09:14→22:21)
[2021-06-25] MEDS: SENNOSIDES/DOCUSATE SODIUM 8.6/50 MG TAB FEEDTUBE SCH ×2 (09:14→22:12)
[2021-06-25] MEDS: VALSARTAN 160MG TAB PO SCH ×2 (09:15→22:21)
[2021-06-25] MEDS: FAMOTIDINE 20 MG TAB FEEDTUBE SCH ×2 (09:15→22:14)
[2021-06-25] MEDS: APIXABAN 5 MG TAB PO SCH ×2 (09:16→22:13)
[2021-06-25] MEDS: DOCUSATE SODIUM 100 MG/10 ML ORAL LIQD PO SCH ×2 (09:16→22:15)
--- NOTE | 2021-06-25 15:06 | Progress Note ---
Subjective Date of service: 06/25/21 Principal diagnosis: Ac hypoxemic resp failure; Cardiac arrest; Seizures; Sepsis; AMS; A-Fib RVR Interval history: Summary per medical records. Information verified at the bedside with her son 65 YO Female with HTN, TX, CAD S/P Stent Placement, Nicotine Dependence, DM, HLD, Seizure Disorder presents to ED for evaluation. Patient is intubated and ambulatory support at the time my evaluation is unable to provide history. Patient agitated when EMS staff, ED staff, as well as the patient's son who was made available by telephone for interview. As per son the patient was in her usual state of health on the day prior to admission. 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 Patient son reports that patient began hyperventilating and screaming "help me, help me. EMS was notified and upon arrival the patient was found to be in distress and subsequently lost consciousness and was found to have asystole on cardiac monitor technician. Patient was treated" with ACLS protocol with return of perfusing cardiac rhythm. The patient was transported to [facility] for further care and evaluation of the aforementioned symptoms. The patient was seen and evaluated in the emergency department and shortly upon arrival to the emergency department the patient experienced repeated asystole. Patient was again treated" with ACLS protocol with eventual return of perfusing cardiac rhythm. Patient was found to have acute hypoxemic respiratory failure and was unable to protect her airway and was subsequently intubated while in the emergency department. The patient was also found to have atrial fibrillation with rapid ventricular response, metabolic acidosis, sepsis, toxic metabolic encephalopathy and suspected anoxic brain injury. Patient admitted to ICU and initiated on sepsis protocol. Follow up for: acute hypoxemic resp failure; s/p cardiopulmonary arrest with ROSC; Seizure disorder Patient seen and examined. Vitals, labs, medications, chart reviewed. No fevers, no vomiting. Discussed with nursing and resp staff in interdisciplinary rounds She is s/p trach and has been off MVS overnight Mental status changes persist Objective Vital Signs - 12hr 06/25/21 06/25/21 06/25/21 03:31 04:40 06:46 Temperature 98.6 F Pulse Rate 83 83 Respiratory 18 Rate Blood Pressure 110/46 110/46 Blood Pressure [Left] O2 Sat by Pulse 98 Oximetry O2 Sat by Pulse 99 Oximetry [ Assessment] 06/25/21 06/25/2121 08:20 09:13 09:14 Temperature 98.8 F Pulse Rate 87 87 87 Respiratory 18 Rate Blood Pressure 143/65 143/65 Blood Pressure 143/65 [Left] O2 Sat by Pulse 98 Oximetry O2 Sat by Pulse Oximetry [ Assessment] 06/25/21 06/25/21 06/25/21 09:15 11:28 13:02 Temperature Pulse Rate 87 77 Respiratory 18 Rate Blood Pressure 143/65 Blood Pressure 144/72 [Left] O2 Sat by Pulse 99 99 Oximetry O2 Sat by Pulse Oximetry [ Assessment] 06/25/21 14:06 Temperature Pulse Rate 78 Respiratory Rate Blood Pressure 145/75 Blood Pressure [Left] O2 Sat by Pulse Oximetry O2 Sat by Pulse Oximetry [ Assessment] Constitutional: appears uncomfortable, other (elderly female with normal respiratory effort at rest , trach to ATP) Eyes: non-icteric ENT: oropharynx moist, other (+ midline tracheostomy with mild secretions) Neck: supple, no lymphadenopathy Effort: mildly labored Ascultation: Bilateral: diminished breath sounds, rhonchi (scant) Percussion: Bilateral: not dull Cardiovascular: regular rate and rhythm, other (S1,S2) Gastrointestinal: normoactive bowel sounds, soft, non-tender, non-distended (protuberant), other (+ PEG tube) Integumentary: normal Extremities: no cyanosis, pulses normal, no ischemia or petechiae, other (Right femoral CVL) Neurologic: pupils equal and round, unable to assess, other (encephalopathic) Psychiatric: other (unable to assess) CBC and BMP: 06/24/21 04:40 06/24/21 04:40 ABG, PT/INR, D-dimer: ABG ABG pH 7.484 (7.320-7.450) H 06/23/21 10:50 POC ABG pCO2 39.0 mmHg (32.0-48.0) 06/23/21 10:50 ABG pCO2 30.3 mm Hg 05/29/21 05:28 POC ABG pO2 96.2 mmHg (83-108) 06/23/21 10:50 ABG pO2 96.2 mm Hg (80.0-90.0) H 05/29/21 05:28 POC ABG HCO3 28.7 10/15/21 10:50 ABG O2 Saturation 97.5 (0-100) 06/23/21 10:50 PT/INR, D-dimer PT 14.5 Sec. (12.2-14.9) 06/16/21 18:51 INR 1.08 (0.87-1.13) 06/16/21 18:51 D-Dimer > 12431 ng/mlDDU (0-234) H 05/25/21 09:21 Abnormal lab findings: Abnormal Labs 05/25/21 05/25/21 05/25/21 09:07 09:21 09:21 WBC 17.1 H RBC Hgb Hct MCV 106 H MCH 33 H MCHC RDW 15.6 H [place] % (Auto) [place] # (Auto) Seg Neutrophils % Seg Neuts % (Manual) Lymphocytes % (Manual) Monocytes % (Manual) Seg Neutrophils # Seg Neutrophils # Man 10.1 H Lymphocytes # (Manual) 5.6 H Monocytes # (Manual) PT 15.0 H APTT 44.3 H D-Dimer > 92501 H Heparin Anti-Xa Level ABG pH 7.116 L POC ABG pCO2 POC ABG pO2 ABG pO2 ABG Hemoglobin ABG Oxyhemoglobin 93.7 L ABG Sodium ABG Potassium ABG Chloride ABG Glucose 395 H Carboxyhemoglobin Sodium Potassium Chloride Carbon Dioxide BUN Creatinine Glucose POC Glucose Lactic Acid Calcium Phosphorus Magnesium Ferritin AST ALT Alkaline Phosphatase Lactate Dehydrogenase Troponin T C-Reactive Protein Total Protein Albumin HDL Cholesterol Arterial Blood Glucose 395 H Arterial Blood Ionized Calcium 4.4 L Urine WBC (Auto) Urine Creatinine 05/25/21 05/25/21 05/25/21 09:21 09:21 09:21 WBC RBC Hgb Hct MCV MCH MCHC RDW [place] % (Auto) [place] # (Auto) Seg Neutrophils % Seg Neuts % (Manual) Lymphocytes % (Manual) Monocytes % (Manual) Seg Neutrophils # Seg Neutrophils # Man Lymphocytes # (Manual) Monocytes # (Manual) PT APTT D-Dimer Heparin Anti-Xa Level ABG pH POC ABG pCO2 POC ABG pO2 ABG pO2 ABG Hemoglobin ABG Oxyhemoglobin ABG Sodium ABG Potassium ABG Chloride ABG Glucose Carboxyhemoglobin Sodium Potassium Chloride Carbon Dioxide 10 L BUN Creatinine Glucose 423 H 424 H POC Glucose Lactic Acid Calcium 8.2 L Phosphorus Magnesium Ferritin 321.6 H AST 162 H ALT 119 H Alkaline Phosphatase Lactate Dehydrogenase 445 H Troponin T C-Reactive Protein Total Protein 5.6 L Albumin 3.2 L HDL Cholesterol Arterial Blood Glucose Arterial Blood Ionized Calcium Urine WBC (Auto) Urine Creatinine 05/25/21 05/25/21 05/25/21 09:35 10:42 11:12 WBC RBC Hgb Hct MCV MCH MCHC RDW [place] % (Auto) [place] # (Auto) Seg Neutrophils % Seg Neuts % (Manual) Lymphocytes % (Manual) Monocytes % (Manual) Seg Neutrophils # Seg Neutrophils # Man Lymphocytes # (Manual) Monocytes # (Manual) PT APTT D-Dimer Heparin Anti-Xa Level ABG pH POC ABG pCO2 POC ABG pO2 ABG pO2 ABG Hemoglobin ABG Oxyhemoglobin ABG Sodium ABG Potassium ABG Chloride ABG Glucose Carboxyhemoglobin Sodium Potassium Chloride Carbon Dioxide BUN Creatinine Glucose POC Glucose Lactic Acid 16.70 H* 7.70 H* Calcium Phosphorus Magnesium Ferritin AST ALT Alkaline Phosphatase Lactate Dehydrogenase Troponin T C-Reactive Protein Total Protein Albumin HDL Cholesterol Arterial Blood Glucose Arterial Blood Ionized Calcium Urine WBC (Auto) 11.0 H Urine Creatinine 05/25/21 05/25/21 05/25/21 14:07 15:19 19:04 WBC RBC Hgb Hct MCV MCH MCHC RDW [place] % (Auto) [place] # (Auto) Seg Neutrophils % Seg Neuts % (Manual) Lymphocytes % (Manual) Monocytes % (Manual) Seg Neutrophils # Seg Neutrophils # Man Lymphocytes # (Manual) Monocytes # (Manual) PT APTT D-Dimer Heparin Anti-Xa Level ABG pH POC ABG pCO2 POC ABG pO2 172.2 H ABG pO2 ABG Hemoglobin ABG Oxyhemoglobin 98.7 H ABG Sodium 135.7 L ABG Potassium ABG Chloride ABG Glucose 255 H Carboxyhemoglobin 0.3 L Sodium Potassium Chloride Carbon Dioxide BUN Creatinine Glucose POC Glucose Lactic Acid 3.90 H* Calcium Phosphorus Magnesium Ferritin AST ALT Alkaline Phosphatase Lactate Dehydrogenase Troponin T 0.226 H* D C-Reactive Protein Total Protein Albumin HDL Cholesterol 64 H Arterial Blood Glucose 255 H Arterial Blood Ionized Calcium 3.8 L Urine WBC (Auto) Urine Creatinine 05/25/21 05/25/21 05/26/21 21:16 21:16 04:00 WBC RBC Hgb Hct MCV MCH MCHC RDW [place] % (Auto) [place] # (Auto) Seg Neutrophils % Seg Neuts % (Manual) Lymphocytes % (Manual) Monocytes % (Manual) Seg Neutrophils # Seg Neutrophils # Man Lymphocytes # (Manual) Monocytes # (Manual) PT APTT D-Dimer Heparin Anti-Xa Level 1.19 H ABG pH 7.547 H POC ABG pCO2 POC ABG pO2 ABG pO2 ABG Hemoglobin 11.9 L ABG Oxyhemoglobin ABG Sodium 133.2 L ABG Potassium 3.1 L ABG Chloride ABG Glucose 243 H Carboxyhemoglobin 0.3 L Sodium Potassium Chloride Carbon Dioxide BUN Creatinine Glucose POC Glucose Lactic Acid 2.50 H* Calcium Phosphorus Magnesium Ferritin AST ALT Alkaline Phosphatase Lactate Dehydrogenase Troponin T C-Reactive Protein Total Protein Albumin HDL Cholesterol Arterial Blood Glucose 243 H Arterial Blood Ionized Calcium Urine WBC (Auto) Urine Creatinine 05/26/21 05/26/21 05/26/21 05:49 05:49 17:33 WBC RBC Hgb Hct MCV MCH MCHC RDW [place] % (Auto) [place] # (Auto) Seg Neutrophils % Seg Neuts % (Manual) Lymphocytes % (Manual) Monocytes % (Manual) Seg Neutrophils # Seg Neutrophils # Man Lymphocytes # (Manual) Monocytes # (Manual) PT APTT D-Dimer Heparin Anti-Xa Level ABG pH POC ABG pCO2 POC ABG pO2 ABG pO2 ABG Hemoglobin ABG Oxyhemoglobin ABG Sodium ABG Potassium ABG Chloride ABG Glucose Carboxyhemoglobin Sodium Potassium Chloride Carbon Dioxide BUN Creatinine Glucose 226 H POC Glucose 156 H Lactic Acid 2.30 H* Calcium 7.2 L Phosphorus Magnesium Ferritin AST 111 H ALT 97 H Alkaline Phosphatase Lactate Dehydrogenase Troponin T C-Reactive Protein Total Protein 5.4 L Albumin 3.3 L HDL Cholesterol Arterial Blood Glucose Arterial Blood Ionized Calcium Urine WBC (Auto) Urine Creatinine 05/27/21 05/27/21 05/27/21 02:11 02:11 02:11 WBC 14.3 H RBC 3.27 L Hgb Hct MCV 99 H MCH 33 H MCHC RDW 15.3 H [place] % (Auto) [place] # (Auto) 1.0 H Seg Neutrophils % Seg Neuts % (Manual) Lymphocytes % (Manual) Monocytes % (Manual) Seg Neutrophils # 10.0 H Seg Neutrophils # Man Lymphocytes # (Manual) Monocytes # (Manual) PT APTT D-Dimer Heparin Anti-Xa Level 0.80 H ABG pH POC ABG pCO2 POC ABG pO2 ABG pO2 ABG Hemoglobin ABG Oxyhemoglobin ABG Sodium ABG Potassium ABG Chloride ABG Glucose Carboxyhemoglobin Sodium Potassium 2.9 L* D Chloride Carbon Dioxide 31 H BUN 6 L Creatinine Glucose 215 H POC Glucose Lactic Acid Calcium 8.1 L Phosphorus Magnesium Ferritin AST ALT Alkaline Phosphatase Lactate Dehydrogenase Troponin T C-Reactive Protein Total Protein Albumin HDL Cholesterol Arterial Blood Glucose Arterial Blood Ionized Calcium Urine WBC (Auto) Urine Creatinine 05/27/21 05/27/21 05/27/21 11:24 12:49 18:06 WBC RBC Hgb Hct MCV MCH MCHC RDW [place] % (Auto) [place] # (Auto) Seg Neutrophils % Seg Neuts % (Manual) Lymphocytes % (Manual) Monocytes % (Manual) Seg Neutrophils # Seg Neutrophils # Man Lymphocytes # (Manual) Monocytes # (Manual) PT APTT D-Dimer Heparin Anti-Xa Level ABG pH POC ABG pCO2 POC ABG pO2 ABG pO2 ABG Hemoglobin ABG Oxyhemoglobin ABG Sodium ABG Potassium ABG Chloride ABG Glucose Carboxyhemoglobin Sodium Potassium Chloride Carbon Dioxide BUN Creatinine Glucose POC Glucose 151 H 165 H 137 H Lactic Acid Calcium Phosphorus Magnesium Ferritin AST ALT Alkaline Phosphatase Lactate Dehydrogenase Troponin T C-Reactive Protein Total Protein Albumin HDL Cholesterol Arterial Blood Glucose Arterial Blood Ionized Calcium Urine WBC (Auto) Urine Creatinine 05/28/21 05/28/21 05/28/21 04:00 04:00 06:02 WBC 13.5 H RBC 3.05 L Hgb Hct MCV 100 H MCH 34 H MCHC RDW [place] % (Auto) [place] # (Auto) 0.9 H Seg Neutrophils % 78.2 H Seg Neuts % (Manual) Lymphocytes % (Manual) Monocytes % (Manual) Seg Neutrophils # 10.6 H Seg Neutrophils # Man Lymphocytes # (Manual) Monocytes # (Manual) PT APTT D-Dimer Heparin Anti-Xa Level ABG pH 7.507 H POC ABG pCO2 POC ABG pO2 ABG pO2 ABG Hemoglobin 10.6 L ABG Oxyhemoglobin ABG Sodium 129.4 L ABG Potassium ABG Chloride ABG Glucose 243 H Carboxyhemoglobin 0.2 L Sodium 136 L D Potassium Chloride Carbon Dioxide BUN Creatinine Glucose 215 H POC Glucose Lactic Acid Calcium Phosphorus Magnesium Ferritin AST ALT Alkaline Phosphatase Lactate Dehydrogenase Troponin T C-Reactive Protein Total Protein Albumin HDL Cholesterol Arterial Blood Glucose 243 H Arterial Blood Ionized Calcium 4.1 L Urine WBC (Auto) Urine Creatinine 05/28/21 05/28/21 05/29/21 11:27 23:02 04:30 WBC RBC Hgb 9.3 L Hct 26.7 L MCV MCH MCHC RDW [place] % (Auto) [place] # (Auto) Seg Neutrophils % Seg Neuts % (Manual) Lymphocytes % (Manual) Monocytes % (Manual) Seg Neutrophils # Seg Neutrophils # Man Lymphocytes # (Manual) Monocytes # (Manual) PT APTT D-Dimer Heparin Anti-Xa Level ABG pH POC ABG pCO2 POC ABG pO2 ABG pO2 ABG Hemoglobin ABG Oxyhemoglobin ABG Sodium ABG Potassium ABG Chloride ABG Glucose Carboxyhemoglobin Sodium Potassium Chloride Carbon Dioxide BUN Creatinine Glucose POC Glucose 220 H 212 H Lactic Acid Calcium Phosphorus Magnesium Ferritin AST ALT Alkaline Phosphatase Lactate Dehydrogenase Troponin T C-Reactive Protein Total Protein Albumin HDL Cholesterol Arterial Blood Glucose Arterial Blood Ionized Calcium Urine WBC (Auto) Urine Creatinine 05/29/21 05/29/21 05/29/21 05:02 05:28 12:55 WBC RBC Hgb Hct MCV MCH MCHC RDW [place] % (Auto) [place] # (Auto) Seg Neutrophils % Seg Neuts % (Manual) Lymphocytes % (Manual) Monocytes % (Manual) Seg Neutrophils # Seg Neutrophils # Man Lymphocytes # (Manual) Monocytes # (Manual) PT APTT D-Dimer Heparin Anti-Xa Level ABG pH 7.516 H POC ABG pCO2 POC ABG pO2 ABG pO2 96.2 H ABG Hemoglobin 7.5 L ABG Oxyhemoglobin ABG Sodium ABG Potassium ABG Chloride ABG Glucose Carboxyhemoglobin Sodium Potassium Chloride Carbon Dioxide BUN Creatinine Glucose POC Glucose 197 H 251 H Lactic Acid Calcium Phosphorus Magnesium Ferritin AST ALT Alkaline Phosphatase Lactate Dehydrogenase Troponin T C-Reactive Protein Total Protein Albumin HDL Cholesterol Arterial Blood Glucose Arterial Blood Ionized Calcium Urine WBC (Auto) Urine Creatinine 05/29/21 05/29/21 05/30/21 18:23 23:31 04:10 WBC RBC Hgb Hct MCV MCH MCHC RDW [place] % (Auto) [place] # (Auto) Seg Neutrophils % Seg Neuts % (Manual) Lymphocytes % (Manual) Monocytes % (Manual) Seg Neutrophils # Seg Neutrophils # Man Lymphocytes # (Manual) Monocytes # (Manual) PT APTT D-Dimer Heparin Anti-Xa Level ABG pH 7.532 H POC ABG pCO2 30.0 L POC ABG pO2 78.5 L ABG pO2 ABG Hemoglobin 11.3 L ABG Oxyhemoglobin ABG Sodium 126.7 L ABG Potassium ABG Chloride 94.0 L ABG Glucose 270 H Carboxyhemoglobin 0.4 L Sodium Potassium Chloride Carbon Dioxide BUN Creatinine Glucose POC Glucose 236 H 252 H Lactic Acid Calcium Phosphorus Magnesium Ferritin AST ALT Alkaline Phosphatase Lactate Dehydrogenase Troponin T C-Reactive Protein Total Protein Albumin HDL Cholesterol Arterial Blood Glucose 270 H Arterial Blood Ionized Calcium 4.4 L Urine WBC (Auto) Urine Creatinine 05/30/21 05/30/21 05/30/21 05:06 06:23 11:15 WBC RBC Hgb Hct MCV MCH MCHC RDW [place] % (Auto) [place] # (Auto) Seg Neutrophils % Seg Neuts % (Manual) Lymphocytes % (Manual) Monocytes % (Manual) Seg Neutrophils # Seg Neutrophils # Man Lymphocytes # (Manual) Monocytes # (Manual) PT APTT D-Dimer Heparin Anti-Xa Level ABG pH POC ABG pCO2 POC ABG pO2 ABG pO2 ABG Hemoglobin ABG Oxyhemoglobin ABG Sodium ABG Potassium ABG Chloride ABG Glucose Carboxyhemoglobin Sodium 126 L D Potassium Chloride 91.9 L Carbon Dioxide 20 L D BUN Creatinine 0.4 L Glucose 274 H POC Glucose 242 H 346 H Lactic Acid Calcium Phosphorus Magnesium Ferritin AST ALT Alkaline Phosphatase Lactate Dehydrogenase Troponin T C-Reactive Protein Total Protein Albumin HDL Cholesterol Arterial Blood Glucose Arterial Blood Ionized Calcium Urine WBC (Auto) Urine Creatinine 05/30/21 05/30/21 05/30/21 11:19 11:19 11:19 WBC 18.9 H RBC 3.36 L Hgb Hct MCV 102 H MCH 33 H MCHC RDW 15.5 H [place] % (Auto) [place] # (Auto) Seg Neutrophils % Seg Neuts % (Manual) Lymphocytes % (Manual) Monocytes % (Manual) Seg Neutrophils # Seg Neutrophils # Man Lymphocytes # (Manual) Monocytes # (Manual) PT APTT D-Dimer Heparin Anti-Xa Level < 0.10 L ABG pH POC ABG pCO2 POC ABG pO2 ABG pO2 ABG Hemoglobin ABG Oxyhemoglobin ABG Sodium ABG Potassium ABG Chloride ABG Glucose Carboxyhemoglobin Sodium 124 L Potassium Chloride Carbon Dioxide BUN Creatinine Glucose POC Glucose Lactic Acid Calcium Phosphorus Magnesium Ferritin AST ALT Alkaline Phosphatase Lactate Dehydrogenase Troponin T C-Reactive Protein Total Protein Albumin HDL Cholesterol Arterial Blood Glucose Arterial Blood Ionized Calcium Urine WBC (Auto) Urine Creatinine 05/30/21 05/30/21 05/31/21 17:02 23:27 03:37 WBC RBC Hgb Hct MCV MCH MCHC RDW [place] % (Auto) [place] # (Auto) Seg Neutrophils % Seg Neuts % (Manual) Lymphocytes % (Manual) Monocytes % (Manual) Seg Neutrophils # Seg Neutrophils # Man Lymphocytes # (Manual) Monocytes # (Manual) PT APTT D-Dimer Heparin Anti-Xa Level ABG pH POC ABG pCO2 POC ABG pO2 ABG pO2 ABG Hemoglobin 11.6 L ABG Oxyhemoglobin ABG Sodium 130.0 L ABG Potassium ABG Chloride 95.0 L ABG Glucose 292 H Carboxyhemoglobin Sodium Potassium Chloride Carbon Dioxide BUN Creatinine Glucose POC Glucose 270 H 237 H Lactic Acid Calcium Phosphorus Magnesium Ferritin AST ALT Alkaline Phosphatase Lactate Dehydrogenase Troponin T C-Reactive Protein Total Protein Albumin HDL Cholesterol Arterial Blood Glucose 292 H Arterial Blood Ionized Calcium Urine WBC (Auto) Urine Creatinine 05/31/21 05/31/21 05/31/21 04:00 04:00 05:20 WBC 20.9 H RBC 3.13 L Hgb Hct MCV 99 H MCH 34 H MCHC RDW [place] % (Auto) [place] # (Auto) Seg Neutrophils % Seg Neuts % (Manual) 81.0 H Lymphocytes % (Manual) 8.0 L Monocytes % (Manual) 9.0 H Seg Neutrophils # Seg Neutrophils # Man 16.9 H Lymphocytes # (Manual) Monocytes # (Manual) 1.9 H PT APTT D-Dimer Heparin Anti-Xa Level ABG pH POC ABG pCO2 POC ABG pO2 ABG pO2 ABG Hemoglobin ABG Oxyhemoglobin ABG Sodium ABG Potassium ABG Chloride ABG Glucose Carboxyhemoglobin Sodium 133 L D Potassium Chloride 95.4 L Carbon Dioxide 21 L BUN 30 H Creatinine 0.5 L Glucose 305 H POC Glucose 269 H Lactic Acid Calcium Phosphorus Magnesium Ferritin AST ALT Alkaline Phosphatase Lactate Dehydrogenase Troponin T C-Reactive Protein Total Protein Albumin HDL Cholesterol Arterial Blood Glucose Arterial Blood Ionized Calcium Urine WBC (Auto) Urine Creatinine 05/31/21 05/31/21 05/31/21 11:40 18:16 23:25 WBC RBC Hgb Hct MCV MCH MCHC RDW [place] % (Auto) [place] # (Auto) Seg Neutrophils % Seg Neuts % (Manual) Lymphocytes % (Manual) Monocytes % (Manual) Seg Neutrophils # Seg Neutrophils # Man Lymphocytes # (Manual) Monocytes # (Manual) PT APTT D-Dimer Heparin Anti-Xa Level ABG pH POC ABG pCO2 POC ABG pO2 ABG pO2 ABG Hemoglobin ABG Oxyhemoglobin ABG Sodium ABG Potassium ABG Chloride ABG Glucose Carboxyhemoglobin Sodium Potassium Chloride Carbon Dioxide BUN Creatinine Glucose POC Glucose 364 H 250 H 231 H Lactic Acid Calcium Phosphorus Magnesium Ferritin AST ALT Alkaline Phosphatase Lactate Dehydrogenase Troponin T C-Reactive Protein Total Protein Albumin HDL Cholesterol Arterial Blood Glucose Arterial Blood Ionized Calcium Urine WBC (Auto) Urine Creatinine 06/01/21 06/01/21 06/01/21 04:03 04:58 04:58 WBC 20.7 H RBC 3.20 L Hgb Hct MCV 99 H MCH 34 H MCHC RDW [place] % (Auto) [place] # (Auto) Seg Neutrophils % Seg Neuts % (Manual) 82.0 H Lymphocytes % (Manual) 9.0 L Monocytes % (Manual) Seg Neutrophils # Seg Neutrophils # Man 17.0 H Lymphocytes # (Manual) Monocytes # (Manual) 1.4 H PT APTT D-Dimer Heparin Anti-Xa Level 1.18 H ABG pH 7.520 H POC ABG pCO2 POC ABG pO2 66.0 L ABG pO2 ABG Hemoglobin ABG Oxyhemoglobin 92.5 L ABG Sodium 133.6 L ABG Potassium ABG Chloride ABG Glucose 250 H Carboxyhemoglobin Sodium Potassium Chloride Carbon Dioxide BUN Creatinine Glucose POC Glucose Lactic Acid Calcium Phosphorus Magnesium Ferritin AST ALT Alkaline Phosphatase Lactate Dehydrogenase Troponin T C-Reactive Protein Total Protein Albumin HDL Cholesterol Arterial Blood Glucose 250 H Arterial Blood Ionized Calcium 4.4 L Urine WBC (Auto) Urine Creatinine 06/01/21 06/01/21 06/01/21 04:58 05:29 11:39 WBC RBC Hgb Hct MCV MCH MCHC RDW [place] % (Auto) [place] # (Auto) Seg Neutrophils % Seg Neuts % (Manual) Lymphocytes % (Manual) Monocytes % (Manual) Seg Neutrophils # Seg Neutrophils # Man Lymphocytes # (Manual) Monocytes # (Manual) PT APTT D-Dimer Heparin Anti-Xa Level ABG pH POC ABG pCO2 POC ABG pO2 ABG pO2 ABG Hemoglobin ABG Oxyhemoglobin ABG Sodium ABG Potassium ABG Chloride ABG Glucose Carboxyhemoglobin Sodium 131 L Potassium Chloride 95.7 L Carbon Dioxide BUN 30 H Creatinine 0.5 L Glucose 241 H POC Glucose 215 H 299 H Lactic Acid Calcium Phosphorus Magnesium Ferritin AST ALT Alkaline Phosphatase Lactate Dehydrogenase Troponin T C-Reactive Protein Total Protein Albumin HDL Cholesterol Arterial Blood Glucose Arterial Blood Ionized Calcium Urine WBC (Auto) Urine Creatinine 06/01/21 06/02/21 06/02/21 18:14 00:12 02:25 WBC 17.4 H RBC 3.09 L Hgb Hct MCV 101 H MCH 34 H MCHC RDW 15.5 H [place] % (Auto) [place] # (Auto) Seg Neutrophils % Seg Neuts % (Manual) Lymphocytes % (Manual) Monocytes % (Manual) Seg Neutrophils # Seg Neutrophils # Man Lymphocytes # (Manual) Monocytes # (Manual) PT APTT D-Dimer Heparin Anti-Xa Level ABG pH POC ABG pCO2 POC ABG pO2 ABG pO2 ABG Hemoglobin ABG Oxyhemoglobin ABG Sodium ABG Potassium ABG Chloride ABG Glucose Carboxyhemoglobin Sodium Potassium Chloride Carbon Dioxide BUN Creatinine Glucose POC Glucose 215 H 175 H Lactic Acid Calcium Phosphorus Magnesium Ferritin AST ALT Alkaline Phosphatase Lactate Dehydrogenase Troponin T C-Reactive Protein Total Protein Albumin HDL Cholesterol Arterial Blood Glucose Arterial Blood Ionized Calcium Urine WBC (Auto) Urine Creatinine 06/02/21 06/02/21 06/02/21 02:25 04:13 04:58 WBC RBC Hgb Hct MCV MCH MCHC RDW [place] % (Auto) [place] # (Auto) Seg Neutrophils % Seg Neuts % (Manual) Lymphocytes % (Manual) Monocytes % (Manual) Seg Neutrophils # Seg Neutrophils # Man Lymphocytes # (Manual) Monocytes # (Manual) PT APTT D-Dimer Heparin Anti-Xa Level ABG pH 7.481 H POC ABG pCO2 POC ABG pO2 80.0 L ABG pO2 ABG Hemoglobin 11.1 L ABG Oxyhemoglobin ABG Sodium 131.9 L ABG Potassium ABG Chloride ABG Glucose 231 H Carboxyhemoglobin 0.2 L Sodium 134 L Potassium Chloride 95.8 L Carbon Dioxide BUN 31 H Creatinine 0.5 L Glucose 168 H POC Glucose 230 H Lactic Acid Calcium Phosphorus Magnesium Ferritin AST ALT Alkaline Phosphatase Lactate Dehydrogenase Troponin T C-Reactive Protein Total Protein Albumin HDL Cholesterol Arterial Blood Glucose 231 H Arterial Blood Ionized Calcium Urine WBC (Auto) Urine Creatinine 06/02/21 06/02/21 06/02/21 11:27 17:47 23:53 WBC RBC Hgb Hct MCV MCH MCHC RDW [place] % (Auto) [place] # (Auto) Seg Neutrophils % Seg Neuts % (Manual) Lymphocytes % (Manual) Monocytes % (Manual) Seg Neutrophils # Seg Neutrophils # Man Lymphocytes # (Manual) Monocytes # (Manual) PT APTT D-Dimer Heparin Anti-Xa Level 0.80 H ABG pH POC ABG pCO2 POC ABG pO2 ABG pO2 ABG Hemoglobin ABG Oxyhemoglobin ABG Sodium ABG Potassium ABG Chloride ABG Glucose Carboxyhemoglobin Sodium Potassium Chloride Carbon Dioxide BUN Creatinine Glucose POC Glucose 259 H 297 H Lactic Acid Calcium Phosphorus Magnesium Ferritin AST ALT Alkaline Phosphatase Lactate Dehydrogenase Troponin T C-Reactive Protein Total Protein Albumin HDL Cholesterol Arterial Blood Glucose Arterial Blood Ionized Calcium Urine WBC (Auto) Urine Creatinine 06/03/21 06/03/21 06/03/21 00:05 05:23 09:10 WBC RBC Hgb Hct MCV MCH MCHC RDW [place] % (Auto) [place] # (Auto) Seg Neutrophils % Seg Neuts % (Manual) Lymphocytes % (Manual) Monocytes % (Manual) Seg Neutrophils # Seg Neutrophils # Man Lymphocytes # (Manual) Monocytes # (Manual) PT APTT D-Dimer Heparin Anti-Xa Level 0.84 H ABG pH POC ABG pCO2 POC ABG pO2 ABG pO2 ABG Hemoglobin ABG Oxyhemoglobin ABG Sodium ABG Potassium ABG Chloride ABG Glucose Carboxyhemoglobin Sodium Potassium Chloride Carbon Dioxide BUN Creatinine Glucose POC Glucose 268 H 170 H Lactic Acid Calcium Phosphorus Magnesium Ferritin AST ALT Alkaline Phosphatase Lactate Dehydrogenase Troponin T C-Reactive Protein Total Protein Albumin HDL Cholesterol Arterial Blood Glucose Arterial Blood Ionized Calcium Urine WBC (Auto) Urine Creatinine 06/03/21 06/03/21 06/03/21 12:06 20:22 23:30 WBC RBC Hgb Hct MCV MCH MCHC RDW [place] % (Auto) [place] # (Auto) Seg Neutrophils % Seg Neuts % (Manual) Lymphocytes % (Manual) Monocytes % (Manual) Seg Neutrophils # Seg Neutrophils # Man Lymphocytes # (Manual) Monocytes # (Manual) PT APTT D-Dimer Heparin Anti-Xa Level ABG pH POC ABG pCO2 POC ABG pO2 ABG pO2 ABG Hemoglobin ABG Oxyhemoglobin ABG Sodium ABG Potassium ABG Chloride ABG Glucose Carboxyhemoglobin Sodium Potassium Chloride Carbon Dioxide BUN Creatinine Glucose POC Glucose 275 H 260 H 215 H Lactic Acid Calcium Phosphorus Magnesium Ferritin AST ALT Alkaline Phosphatase Lactate Dehydrogenase Troponin T C-Reactive Protein Total Protein Albumin HDL Cholesterol Arterial Blood Glucose Arterial Blood Ionized Calcium Urine WBC (Auto) Urine Creatinine 06/04/21 06/04/21 06/04/21 05:03 05:57 05:57 WBC 17.8 H RBC 2.83 L Hgb 9.6 L Hct 28.4 L MCV 100 H MCH 34 H MCHC RDW 15.5 H [place] % (Auto) [place] # (Auto) Seg Neutrophils % Seg Neuts % (Manual) 83.0 H Lymphocytes % (Manual) 4.0 L Monocytes % (Manual) Seg Neutrophils # Seg Neutrophils # Man 14.8 H Lymphocytes # (Manual) 0.7 L Monocytes # (Manual) 1.1 H PT APTT D-Dimer Heparin Anti-Xa Level ABG pH POC ABG pCO2 POC ABG pO2 ABG pO2 ABG Hemoglobin ABG Oxyhemoglobin ABG Sodium ABG Potassium ABG Chloride ABG Glucose Carboxyhemoglobin Sodium 135 L Potassium Chloride 96.3 L Carbon Dioxide BUN 51 H Creatinine Glucose 275 H POC Glucose 257 H Lactic Acid Calcium Phosphorus Magnesium Ferritin AST ALT Alkaline Phosphatase Lactate Dehydrogenase Troponin T C-Reactive Protein Total Protein Albumin HDL Cholesterol Arterial Blood Glucose Arterial Blood Ionized Calcium Urine WBC (Auto) Urine Creatinine 06/04/21 06/04/21 06/04/21 09:48 11:08 17:33 WBC RBC Hgb Hct MCV MCH MCHC RDW [place] % (Auto) [place] # (Auto) Seg Neutrophils % Seg Neuts % (Manual) Lymphocytes % (Manual) Monocytes % (Manual) Seg Neutrophils # Seg Neutrophils # Man Lymphocytes # (Manual) Monocytes # (Manual) PT APTT D-Dimer Heparin Anti-Xa Level ABG pH POC ABG pCO2 POC ABG pO2 ABG pO2 ABG Hemoglobin ABG Oxyhemoglobin ABG Sodium ABG Potassium ABG Chloride ABG Glucose Carboxyhemoglobin Sodium Potassium Chloride Carbon Dioxide BUN Creatinine Glucose POC Glucose 198 H 234 H 247 H Lactic Acid Calcium Phosphorus Magnesium Ferritin AST ALT Alkaline Phosphatase Lactate Dehydrogenase Troponin T C-Reactive Protein Total Protein Albumin HDL Cholesterol Arterial Blood Glucose Arterial Blood Ionized Calcium Urine WBC (Auto) Urine Creatinine 06/04/21 06/05/21 06/05/21 23:30 05:38 11:24 WBC RBC Hgb Hct MCV MCH MCHC RDW [place] % (Auto) [place] # (Auto) Seg Neutrophils % Seg Neuts % (Manual) Lymphocytes % (Manual) Monocytes % (Manual) Seg Neutrophils # Seg Neutrophils # Man Lymphocytes # (Manual) Monocytes # (Manual) PT APTT D-Dimer Heparin Anti-Xa Level ABG pH POC ABG pCO2 POC ABG pO2 ABG pO2 ABG Hemoglobin ABG Oxyhemoglobin ABG Sodium ABG Potassium ABG Chloride ABG Glucose Carboxyhemoglobin Sodium Potassium Chloride Carbon Dioxide BUN Creatinine Glucose POC Glucose 192 H 192 H 287 H Lactic Acid Calcium Phosphorus Magnesium Ferritin AST ALT Alkaline Phosphatase Lactate Dehydrogenase Troponin T C-Reactive Protein Total Protein Albumin HDL Cholesterol Arterial Blood Glucose Arterial Blood Ionized Calcium Urine WBC (Auto) Urine Creatinine 06/05/21 06/05/21 06/05/21 12:20 12:20 12:20 WBC 16.2 H RBC 2.56 L Hgb 8.8 L Hct 25.2 L MCV 98 H MCH 35 H MCHC 35 H RDW 15.3 H [place] % (Auto) [place] # (Auto) Seg Neutrophils % Seg Neuts % (Manual) Lymphocytes % (Manual) Monocytes % (Manual) Seg Neutrophils # Seg Neutrophils # Man Lymphocytes # (Manual) Monocytes # (Manual) PT APTT 72.2 H* D-Dimer Heparin Anti-Xa Level ABG pH POC ABG pCO2 POC ABG pO2 ABG pO2 ABG Hemoglobin ABG Oxyhemoglobin ABG Sodium ABG Potassium ABG Chloride ABG Glucose Carboxyhemoglobin Sodium 133 L Potassium Chloride 95.3 L Carbon Dioxide BUN 57 H Creatinine Glucose 313 H POC Glucose Lactic Acid Calcium Phosphorus Magnesium Ferritin AST 90 H ALT 79 H Alkaline Phosphatase 262 H Lactate Dehydrogenase Troponin T C-Reactive Protein Total Protein Albumin 2.7 L HDL Cholesterol Arterial Blood Glucose Arterial Blood Ionized Calcium Urine WBC (Auto) Urine Creatinine 06/05/21 06/05/21 06/05/21 17:50 22:57 23:36 WBC RBC Hgb Hct MCV MCH MCHC RDW [place] % (Auto) [place] # (Auto) Seg Neutrophils % Seg Neuts % (Manual) Lymphocytes % (Manual) Monocytes % (Manual) Seg Neutrophils # Seg Neutrophils # Man Lymphocytes # (Manual) Monocytes # (Manual) PT APTT D-Dimer Heparin Anti-Xa Level 0.28 L ABG pH POC ABG pCO2 POC ABG pO2 ABG pO2 ABG Hemoglobin ABG Oxyhemoglobin ABG Sodium ABG Potassium ABG Chloride ABG Glucose Carboxyhemoglobin Sodium Potassium Chloride Carbon Dioxide BUN Creatinine Glucose POC Glucose 275 H 223 H Lactic Acid Calcium Phosphorus Magnesium Ferritin AST ALT Alkaline Phosphatase Lactate Dehydrogenase Troponin T C-Reactive Protein Total Protein Albumin HDL Cholesterol Arterial Blood Glucose Arterial Blood Ionized Calcium Urine WBC (Auto) Urine Creatinine 06/06/21 06/06/21 06/06/21 04:57 04:57 05:02 WBC 15.7 H RBC 2.77 L Hgb 9.4 L Hct 27.2 L MCV 98 H MCH 34 H MCHC RDW 15.4 H [place] % (Auto) [place] # (Auto) Seg Neutrophils % Seg Neuts % (Manual) Lymphocytes % (Manual) Monocytes % (Manual) Seg Neutrophils # Seg Neutrophils # Man Lymphocytes # (Manual) Monocytes # (Manual) PT APTT D-Dimer Heparin Anti-Xa Level ABG pH POC ABG pCO2 POC ABG pO2 ABG pO2 ABG Hemoglobin ABG Oxyhemoglobin ABG Sodium ABG Potassium ABG Chloride ABG Glucose Carboxyhemoglobin Sodium Potassium 5.7 H Chloride Carbon Dioxide BUN 57 H Creatinine Glucose 245 H POC Glucose 217 H Lactic Acid Calcium Phosphorus Magnesium Ferritin AST 99 H ALT 136 H Alkaline Phosphatase 312 H Lactate Dehydrogenase Troponin T C-Reactive Protein Total Protein 6.1 L Albumin 3.1 L HDL Cholesterol Arterial Blood Glucose Arterial Blood Ionized Calcium Urine WBC (Auto) Urine Creatinine 06/06/21 06/06/21 06/06/21 11:37 17:34 18:09 WBC RBC Hgb Hct MCV MCH MCHC RDW [place] % (Auto) [place] # (Auto) Seg Neutrophils % Seg Neuts % (Manual) Lymphocytes % (Manual) Monocytes % (Manual) Seg Neutrophils # Seg Neutrophils # Man Lymphocytes # (Manual) Monocytes # (Manual) PT APTT D-Dimer Heparin Anti-Xa Level ABG pH POC ABG pCO2 POC ABG pO2 ABG pO2 ABG Hemoglobin ABG Oxyhemoglobin ABG Sodium ABG Potassium ABG Chloride ABG Glucose Carboxyhemoglobin Sodium Potassium 5.2 H Chloride Carbon Dioxide BUN 48 H Creatinine Glucose 245 H POC Glucose 251 H 217 H Lactic Acid Calcium Phosphorus Magnesium Ferritin AST ALT Alkaline Phosphatase Lactate Dehydrogenase Troponin T C-Reactive Protein Total Protein Albumin HDL Cholesterol Arterial Blood Glucose Arterial Blood Ionized Calcium Urine WBC (Auto) Urine Creatinine 06/06/21 06/07/21 06/07/21 23:53 04:45 04:45 WBC 21.5 H RBC 2.71 L Hgb 9.0 L Hct 26.9 L MCV 99 H MCH 33 H MCHC RDW 15.3 H [place] % (Auto) [place] # (Auto) Seg Neutrophils % Seg Neuts % (Manual) Lymphocytes % (Manual) Monocytes % (Manual) Seg Neutrophils # Seg Neutrophils # Man Lymphocytes # (Manual) Monocytes # (Manual) PT APTT D-Dimer Heparin Anti-Xa Level 0.10 L ABG pH POC ABG pCO2 POC ABG pO2 ABG pO2 ABG Hemoglobin ABG Oxyhemoglobin ABG Sodium ABG Potassium ABG Chloride ABG Glucose Carboxyhemoglobin Sodium Potassium Chloride Carbon Dioxide BUN Creatinine Glucose POC Glucose 224 H Lactic Acid Calcium Phosphorus Magnesium Ferritin AST ALT Alkaline Phosphatase Lactate Dehydrogenase Troponin T C-Reactive Protein Total Protein Albumin HDL Cholesterol Arterial Blood Glucose Arterial Blood Ionized Calcium Urine WBC (Auto) Urine Creatinine 06/07/21 06/07/21 06/07/21 04:45 05:11 11:50 WBC RBC Hgb Hct MCV MCH MCHC RDW [place] % (Auto) [place] # (Auto) Seg Neutrophils % Seg Neuts % (Manual) Lymphocytes % (Manual) Monocytes % (Manual) Seg Neutrophils # Seg Neutrophils # Man Lymphocytes # (Manual) Monocytes # (Manual) PT APTT D-Dimer Heparin Anti-Xa Level ABG pH POC ABG pCO2 POC ABG pO2 ABG pO2 ABG Hemoglobin ABG Oxyhemoglobin ABG Sodium ABG Potassium ABG Chloride ABG Glucose Carboxyhemoglobin Sodium Potassium 5.4 H Chloride Carbon Dioxide BUN 55 H Creatinine Glucose 178 H POC Glucose 156 H 118 H Lactic Acid Calcium Phosphorus Magnesium Ferritin AST ALT Alkaline Phosphatase Lactate Dehydrogenase Troponin T C-Reactive Protein Total Protein Albumin HDL Cholesterol Arterial Blood Glucose Arterial Blood Ionized Calcium Urine WBC (Auto) Urine Creatinine 06/07/21 06/07/21 06/07/21 14:52 17:45 20:43 WBC RBC Hgb Hct MCV MCH MCHC RDW [place] % (Auto) [place] # (Auto) Seg Neutrophils % Seg Neuts % (Manual) Lymphocytes % (Manual) Monocytes % (Manual) Seg Neutrophils # Seg Neutrophils # Man Lymphocytes # (Manual) Monocytes # (Manual) PT APTT D-Dimer Heparin Anti-Xa Level 0.73 H ABG pH POC ABG pCO2 POC ABG pO2 ABG pO2 ABG Hemoglobin ABG Oxyhemoglobin ABG Sodium ABG Potassium ABG Chloride ABG Glucose Carboxyhemoglobin Sodium Potassium Chloride Carbon Dioxide BUN Creatinine Glucose POC Glucose 164 H Lactic Acid Calcium Phosphorus Magnesium Ferritin AST ALT Alkaline Phosphatase Lactate Dehydrogenase Troponin T C-Reactive Protein 28.90 H Total Protein Albumin HDL Cholesterol Arterial Blood Glucose Arterial Blood Ionized Calcium Urine WBC (Auto) Urine Creatinine 06/07/21 06/08/2106/08/21 23:15 04:25 04:25 WBC 15.8 H RBC 2.58 L Hgb 8.6 L Hct 25.7 L MCV 100 H MCH 33 H MCHC RDW [place] % (Auto) [place] # (Auto) Seg Neutrophils % Seg Neuts % (Manual) 76.0 H Lymphocytes % (Manual) 6.0 L Monocytes % (Manual) 8.0 H Seg Neutrophils # Seg Neutrophils # Man 12.0 H Lymphocytes # (Manual) 0.9 L Monocytes # (Manual) 1.3 H PT APTT D-Dimer Heparin Anti-Xa Level ABG pH POC ABG pCO2 POC ABG pO2 ABG pO2 ABG Hemoglobin ABG Oxyhemoglobin ABG Sodium ABG Potassium ABG Chloride ABG Glucose Carboxyhemoglobin Sodium Potassium Chloride Carbon Dioxide BUN 65 H Creatinine Glucose 205 H POC Glucose 236 H Lactic Acid Calcium Phosphorus Magnesium Ferritin AST ALT Alkaline Phosphatase Lactate Dehydrogenase Troponin T C-Reactive Protein Total Protein Albumin HDL Cholesterol Arterial Blood Glucose Arterial Blood Ionized Calcium Urine WBC (Auto) Urine Creatinine 06/08/21 06/08/21 06/08/21 05:36 11:18 17:41 WBC RBC Hgb Hct MCV MCH MCHC RDW [place] % (Auto) [place] # (Auto) Seg Neutrophils % Seg Neuts % (Manual) Lymphocytes % (Manual) Monocytes % (Manual) Seg Neutrophils # Seg Neutrophils # Man Lymphocytes # (Manual) Monocytes # (Manual) PT APTT D-Dimer Heparin Anti-Xa Level ABG pH POC ABG pCO2 POC ABG pO2 ABG pO2 ABG Hemoglobin ABG Oxyhemoglobin ABG Sodium ABG Potassium ABG Chloride ABG Glucose Carboxyhemoglobin Sodium Potassium Chloride Carbon Dioxide BUN Creatinine Glucose POC Glucose 185 H 203 H 173 H Lactic Acid Calcium Phosphorus Magnesium Ferritin AST ALT Alkaline Phosphatase Lactate Dehydrogenase Troponin T C-Reactive Protein Total Protein Albumin HDL Cholesterol Arterial Blood Glucose Arterial Blood Ionized Calcium Urine WBC (Auto) Urine Creatinine 06/08/21 06/09/21 06/09/21 23:34 05:16 05:20 WBC 15.0 H RBC 2.54 L Hgb 8.5 L Hct 25.2 L MCV 99 H MCH 33 H MCHC RDW [place] % (Auto) [place] # (Auto) Seg Neutrophils % Seg Neuts % (Manual) Lymphocytes % (Manual) Monocytes % (Manual) Seg Neutrophils # Seg Neutrophils # Man Lymphocytes # (Manual) Monocytes # (Manual) PT APTT D-Dimer Heparin Anti-Xa Level ABG pH POC ABG pCO2 POC ABG pO2 ABG pO2 ABG Hemoglobin ABG Oxyhemoglobin ABG Sodium ABG Potassium ABG Chloride ABG Glucose Carboxyhemoglobin Sodium Potassium Chloride Carbon Dioxide BUN Creatinine Glucose POC Glucose 200 H 154 H Lactic Acid Calcium Phosphorus Magnesium Ferritin AST ALT Alkaline Phosphatase Lactate Dehydrogenase Troponin T C-Reactive Protein Total Protein Albumin HDL Cholesterol Arterial Blood Glucose Arterial Blood Ionized Calcium Urine WBC (Auto) Urine Creatinine 06/09/21 06/09/21 06/09/21 05:20 11:40 17:09 WBC RBC Hgb Hct MCV MCH MCHC RDW [place] % (Auto) [place] # (Auto) Seg Neutrophils % Seg Neuts % (Manual) Lymphocytes % (Manual) Monocytes % (Manual) Seg Neutrophils # Seg Neutrophils # Man Lymphocytes # (Manual) Monocytes # (Manual) PT APTT D-Dimer Heparin Anti-Xa Level ABG pH POC ABG pCO2 POC ABG pO2 ABG pO2 ABG Hemoglobin ABG Oxyhemoglobin ABG Sodium ABG Potassium ABG Chloride ABG Glucose Carboxyhemoglobin Sodium Potassium 5.2 H Chloride Carbon Dioxide BUN 69 H Creatinine Glucose 163 H POC Glucose 232 H 137 H Lactic Acid Calcium Phosphorus Magnesium Ferritin AST ALT Alkaline Phosphatase Lactate Dehydrogenase Troponin T C-Reactive Protein Total Protein Albumin HDL Cholesterol Arterial Blood Glucose Arterial Blood Ionized Calcium Urine WBC (Auto) Urine Creatinine 06/09/21 06/10/21 06/10/21 23:31 04:42 04:42 WBC 14.5 H RBC 2.41 L Hgb 8.2 L Hct 24.0 L MCV 100 H MCH 34 H MCHC RDW 15.8 H [place] % (Auto) [place] # (Auto) Seg Neutrophils % Seg Neuts % (Manual) Lymphocytes % (Manual) Monocytes % (Manual) Seg Neutrophils # Seg Neutrophils # Man Lymphocytes # (Manual) Monocytes # (Manual) PT APTT D-Dimer Heparin Anti-Xa Level ABG pH POC ABG pCO2 POC ABG pO2 ABG pO2 ABG Hemoglobin ABG Oxyhemoglobin ABG Sodium ABG Potassium ABG Chloride ABG Glucose Carboxyhemoglobin Sodium 146 H D Potassium 3.4 L D Chloride Carbon Dioxide BUN 62 H Creatinine Glucose 174 H POC Glucose 162 H Lactic Acid Calcium Phosphorus Magnesium Ferritin AST ALT Alkaline Phosphatase Lactate Dehydrogenase Troponin T C-Reactive Protein Total Protein Albumin HDL Cholesterol Arterial Blood Glucose Arterial Blood Ionized Calcium Urine WBC (Auto) Urine Creatinine 06/10/21 06/10/21 06/10/21 05:36 11:43 18:24 WBC RBC Hgb Hct MCV MCH MCHC RDW [place] % (Auto) [place] # (Auto) Seg Neutrophils % Seg Neuts % (Manual) Lymphocytes % (Manual) Monocytes % (Manual) Seg Neutrophils # Seg Neutrophils # Man Lymphocytes # (Manual) Monocytes # (Manual) PT APTT D-Dimer Heparin Anti-Xa Level ABG pH POC ABG pCO2 POC ABG pO2 ABG pO2 ABG Hemoglobin ABG Oxyhemoglobin ABG Sodium ABG Potassium ABG Chloride ABG Glucose Carboxyhemoglobin Sodium Potassium Chloride Carbon Dioxide BUN Creatinine Glucose POC Glucose 149 H 183 H 139 H Lactic Acid Calcium Phosphorus Magnesium Ferritin AST ALT Alkaline Phosphatase Lactate Dehydrogenase Troponin T C-Reactive Protein Total Protein Albumin HDL Cholesterol Arterial Blood Glucose Arterial Blood Ionized Calcium Urine WBC (Auto) Urine Creatinine 06/10/21 06/11/21 06/11/21 23:32 04:17 05:22 WBC RBC Hgb Hct MCV MCH MCHC RDW [place] % (Auto) [place] # (Auto) Seg Neutrophils % Seg Neuts % (Manual) Lymphocytes % (Manual) Monocytes % (Manual) Seg Neutrophils # Seg Neutrophils # Man Lymphocytes # (Manual) Monocytes # (Manual) PT APTT D-Dimer Heparin Anti-Xa Level 0.84 H ABG pH POC ABG pCO2 POC ABG pO2 ABG pO2 ABG Hemoglobin ABG Oxyhemoglobin ABG Sodium ABG Potassium ABG Chloride ABG Glucose Carboxyhemoglobin Sodium Potassium Chloride Carbon Dioxide BUN Creatinine Glucose POC Glucose 149 H 138 H Lactic Acid Calcium Phosphorus Magnesium Ferritin AST ALT Alkaline Phosphatase Lactate Dehydrogenase Troponin T C-Reactive Protein Total Protein Albumin HDL Cholesterol Arterial Blood Glucose Arterial Blood Ionized Calcium Urine WBC (Auto) Urine Creatinine 06/11/21 06/11/21 06/12/21 11:26 23:56 04:44 WBC 15.5 H RBC 2.59 L Hgb 8.6 L Hct 25.8 L MCV 100 H MCH 33 H MCHC RDW 15.3 H [place] % (Auto) [place] # (Auto) Seg Neutrophils % Seg Neuts % (Manual) Lymphocytes % (Manual) Monocytes % (Manual) Seg Neutrophils # Seg Neutrophils # Man Lymphocytes # (Manual) Monocytes # (Manual) PT APTT D-Dimer Heparin Anti-Xa Level ABG pH POC ABG pCO2 POC ABG pO2 ABG pO2 ABG Hemoglobin ABG Oxyhemoglobin ABG Sodium ABG Potassium ABG Chloride ABG Glucose Carboxyhemoglobin Sodium Potassium Chloride Carbon Dioxide BUN Creatinine Glucose POC Glucose 198 H 199 H Lactic Acid Calcium Phosphorus Magnesium Ferritin AST ALT Alkaline Phosphatase Lactate Dehydrogenase Troponin T C-Reactive Protein Total Protein Albumin HDL Cholesterol Arterial Blood Glucose Arterial Blood Ionized Calcium Urine WBC (Auto) Urine Creatinine 06/12/21 06/12/21 06/12/21 04:44 04:44 05:29 WBC RBC Hgb Hct MCV MCH MCHC RDW [place] % (Auto) [place] # (Auto) Seg Neutrophils % Seg Neuts % (Manual) Lymphocytes % (Manual) Monocytes % (Manual) Seg Neutrophils # Seg Neutrophils # Man Lymphocytes # (Manual) Monocytes # (Manual) PT APTT D-Dimer Heparin Anti-Xa Level ABG pH POC ABG pCO2 POC ABG pO2 ABG pO2 ABG Hemoglobin ABG Oxyhemoglobin ABG Sodium ABG Potassium ABG Chloride ABG Glucose Carboxyhemoglobin Sodium 148 H Potassium Chloride Carbon Dioxide BUN 49 H 51 H Creatinine Glucose 222 H 223 H POC Glucose 193 H Lactic Acid Calcium Phosphorus Magnesium 3.20 H Ferritin AST 81 H ALT 83 H Alkaline Phosphatase 215 H Lactate Dehydrogenase Troponin T C-Reactive Protein Total Protein Albumin 3.2 L HDL Cholesterol Arterial Blood Glucose Arterial Blood Ionized Calcium Urine WBC (Auto) Urine Creatinine 06/12/21 06/12/21 06/12/21 11:21 17:55 23:23 WBC RBC Hgb Hct MCV MCH MCHC RDW [place] % (Auto) [place] # (Auto) Seg Neutrophils % Seg Neuts % (Manual) Lymphocytes % (Manual) Monocytes % (Manual) Seg Neutrophils # Seg Neutrophils # Man Lymphocytes # (Manual) Monocytes # (Manual) PT APTT D-Dimer Heparin Anti-Xa Level ABG pH POC ABG pCO2 POC ABG pO2 ABG pO2 ABG Hemoglobin ABG Oxyhemoglobin ABG Sodium ABG Potassium ABG Chloride ABG Glucose Carboxyhemoglobin Sodium Potassium Chloride Carbon Dioxide BUN Creatinine Glucose POC Glucose 185 H 210 H 211 H Lactic Acid Calcium Phosphorus Magnesium Ferritin AST ALT Alkaline Phosphatase Lactate Dehydrogenase Troponin T C-Reactive Protein Total Protein Albumin HDL Cholesterol Arterial Blood Glucose Arterial Blood Ionized Calcium Urine WBC (Auto) Urine Creatinine 06/13/21 06/13/21 06/13/21 04:34 04:34 05:17 WBC 17.2 H RBC 2.56 L Hgb 8.6 L Hct 26.1 L MCV 102 H MCH 34 H MCHC RDW [place] % (Auto) [place] # (Auto) Seg Neutrophils % Seg Neuts % (Manual) Lymphocytes % (Manual) Monocytes % (Manual) Seg Neutrophils # Seg Neutrophils # Man Lymphocytes # (Manual) Monocytes # (Manual) PT APTT D-Dimer Heparin Anti-Xa Level ABG pH POC ABG pCO2 POC ABG pO2 ABG pO2 ABG Hemoglobin ABG Oxyhemoglobin ABG Sodium ABG Potassium ABG Chloride ABG Glucose Carboxyhemoglobin Sodium 149 H Potassium 5.1 H Chloride Carbon Dioxide BUN 52 H Creatinine 1.6 H Glucose 231 H POC Glucose 207 H Lactic Acid Calcium Phosphorus Magnesium Ferritin AST 69 H ALT 74 H Alkaline Phosphatase 197 H Lactate Dehydrogenase Troponin T C-Reactive Protein Total Protein Albumin 3.0 L HDL Cholesterol Arterial Blood Glucose Arterial Blood Ionized Calcium Urine WBC (Auto) Urine Creatinine 06/13/21 06/13/21 06/13/21 10:44 11:07 12:07 WBC RBC Hgb Hct MCV MCH MCHC RDW [place] % (Auto) [place] # (Auto) Seg Neutrophils % Seg Neuts % (Manual) Lymphocytes % (Manual) Monocytes % (Manual) Seg Neutrophils # Seg Neutrophils # Man Lymphocytes # (Manual) Monocytes # (Manual) PT APTT D-Dimer Heparin Anti-Xa Level < 0.10 L ABG pH 7.455 H POC ABG pCO2 POC ABG pO2 ABG pO2 ABG Hemoglobin 8.6 L ABG Oxyhemoglobin ABG Sodium ABG Potassium 4.7 H ABG Chloride ABG Glucose 277 H Carboxyhemoglobin Sodium Potassium Chloride Carbon Dioxide BUN Creatinine Glucose POC Glucose 241 H Lactic Acid Calcium Phosphorus Magnesium Ferritin AST ALT Alkaline Phosphatase Lactate Dehydrogenase Troponin T C-Reactive Protein Total Protein Albumin HDL Cholesterol Arterial Blood Glucose 277 H Arterial Blood Ionized Calcium Urine WBC (Auto) Urine Creatinine 06/13/21 06/13/21 06/13/21 17:35 21:13 23:19 WBC RBC Hgb Hct MCV MCH MCHC RDW [place] % (Auto) [place] # (Auto) Seg Neutrophils % Seg Neuts % (Manual) Lymphocytes % (Manual) Monocytes % (Manual) Seg Neutrophils # Seg Neutrophils # Man Lymphocytes # (Manual) Monocytes # (Manual) PT APTT D-Dimer Heparin Anti-Xa Level 0.92 H ABG pH POC ABG pCO2 POC ABG pO2 ABG pO2 ABG Hemoglobin ABG Oxyhemoglobin ABG Sodium ABG Potassium ABG Chloride ABG Glucose Carboxyhemoglobin Sodium Potassium Chloride Carbon Dioxide BUN Creatinine Glucose POC Glucose 233 H 232 H Lactic Acid Calcium Phosphorus Magnesium Ferritin AST ALT Alkaline Phosphatase Lactate Dehydrogenase Troponin T C-Reactive Protein Total Protein Albumin HDL Cholesterol Arterial Blood Glucose Arterial Blood Ionized Calcium Urine WBC (Auto) Urine Creatinine 06/14/21 06/14/21 06/14/21 04:21 04:21 05:36 WBC 15.6 H RBC 2.26 L Hgb 7.6 L Hct 22.9 L MCV 101 H MCH 34 H MCHC RDW 15.3 H [place] % (Auto) [place] # (Auto) Seg Neutrophils % Seg Neuts % (Manual) Lymphocytes % (Manual) Monocytes % (Manual) Seg Neutrophils # Seg Neutrophils # Man Lymphocytes # (Manual) Monocytes # (Manual) PT APTT D-Dimer Heparin Anti-Xa Level ABG pH POC ABG pCO2 POC ABG pO2 ABG pO2 ABG Hemoglobin ABG Oxyhemoglobin ABG Sodium ABG Potassium ABG Chloride ABG Glucose Carboxyhemoglobin Sodium 149 H Potassium Chloride 107.8 H Carbon Dioxide BUN 66 H Creatinine 1.8 H Glucose 192 H POC Glucose 166 H Lactic Acid Calcium Phosphorus Magnesium Ferritin AST ALT Alkaline Phosphatase Lactate Dehydrogenase Troponin T C-Reactive Protein Total Protein Albumin HDL Cholesterol Arterial Blood Glucose Arterial Blood Ionized Calcium Urine WBC (Auto) Urine Creatinine 06/14/21 06/14/21 06/14/21 12:21 17:07 23:14 WBC RBC Hgb Hct MCV MCH MCHC RDW [place] % (Auto) [place] # (Auto) Seg Neutrophils % Seg Neuts % (Manual) Lymphocytes % (Manual) Monocytes % (Manual) Seg Neutrophils # Seg Neutrophils # Man Lymphocytes # (Manual) Monocytes # (Manual) PT APTT D-Dimer Heparin Anti-Xa Level ABG pH POC ABG pCO2 POC ABG pO2 ABG pO2 ABG Hemoglobin ABG Oxyhemoglobin ABG Sodium ABG Potassium ABG Chloride ABG Glucose Carboxyhemoglobin Sodium Potassium Chloride Carbon Dioxide BUN Creatinine Glucose POC Glucose 190 H 172 H 195 H Lactic Acid Calcium Phosphorus Magnesium Ferritin AST ALT Alkaline Phosphatase Lactate Dehydrogenase Troponin T C-Reactive Protein Total Protein Albumin HDL Cholesterol Arterial Blood Glucose Arterial Blood Ionized Calcium Urine WBC (Auto) Urine Creatinine 06/15/21 06/15/21 06/15/21 05:08 05:08 05:47 WBC 15.3 H RBC 2.23 L Hgb 7.3 L Hct 22.5 L MCV 101 H MCH 33 H MCHC RDW [place] % (Auto) [place] # (Auto) Seg Neutrophils % Seg Neuts % (Manual) Lymphocytes % (Manual) Monocytes % (Manual) Seg Neutrophils # Seg Neutrophils # Man Lymphocytes # (Manual) Monocytes # (Manual) PT APTT D-Dimer Heparin Anti-Xa Level ABG pH POC ABG pCO2 POC ABG pO2 ABG pO2 ABG Hemoglobin ABG Oxyhemoglobin ABG Sodium ABG Potassium ABG Chloride ABG Glucose Carboxyhemoglobin Sodium 147 H Potassium Chloride Carbon Dioxide BUN 60 H Creatinine 1.6 H Glucose 158 H POC Glucose 150 H Lactic Acid Calcium 8.2 L Phosphorus 5.90 H Magnesium 3.20 H Ferritin AST ALT Alkaline Phosphatase Lactate Dehydrogenase Troponin T C-Reactive Protein Total Protein Albumin HDL Cholesterol Arterial Blood Glucose Arterial Blood Ionized Calcium Urine WBC (Auto) Urine Creatinine 06/15/21 06/15/21 06/15/21 10:19 11:25 17:47 WBC RBC Hgb Hct MCV MCH MCHC RDW [place] % (Auto) [place] # (Auto) Seg Neutrophils % Seg Neuts % (Manual) Lymphocytes % (Manual) Monocytes % (Manual) Seg Neutrophils # Seg Neutrophils # Man Lymphocytes # (Manual) Monocytes # (Manual) PT APTT D-Dimer Heparin Anti-Xa Level ABG pH 7.471 H POC ABG pCO2 POC ABG pO2 ABG pO2 ABG Hemoglobin ABG Oxyhemoglobin ABG Sodium ABG Potassium ABG Chloride ABG Glucose Carboxyhemoglobin Sodium Potassium Chloride Carbon Dioxide BUN Creatinine Glucose POC Glucose 133 H 201 H Lactic Acid Calcium Phosphorus Magnesium Ferritin AST ALT Alkaline Phosphatase Lactate Dehydrogenase Troponin T C-Reactive Protein Total Protein Albumin HDL Cholesterol Arterial Blood Glucose Arterial Blood Ionized Calcium Urine WBC (Auto) Urine Creatinine 06/15/21 06/15/21 06/16/21 23:43 Unknown 04:31 WBC 13.8 H RBC 2.23 L Hgb 7.5 L Hct 22.4 L MCV 101 H MCH 34 H MCHC RDW [place] % (Auto) [place] # (Auto) Seg Neutrophils % Seg Neuts % (Manual) Lymphocytes % (Manual) Monocytes % (Manual) Seg Neutrophils # Seg Neutrophils # Man Lymphocytes # (Manual) Monocytes # (Manual) PT APTT D-Dimer Heparin Anti-Xa Level ABG pH POC ABG pCO2 POC ABG pO2 ABG pO2 ABG Hemoglobin ABG Oxyhemoglobin ABG Sodium ABG Potassium ABG Chloride ABG Glucose Carboxyhemoglobin Sodium Potassium Chloride Carbon Dioxide BUN Creatinine Glucose POC Glucose 148 H Lactic Acid Calcium Phosphorus Magnesium Ferritin AST ALT Alkaline Phosphatase Lactate Dehydrogenase Troponin T C-Reactive Protein Total Protein Albumin HDL Cholesterol Arterial Blood Glucose Arterial Blood Ionized Calcium Urine WBC (Auto) Urine Creatinine 74.7 H 06/16/21 06/16/21 06/16/21 04:31 05:48 11:47 WBC RBC Hgb Hct MCV MCH MCHC RDW [place] % (Auto) [place] # (Auto) Seg Neutrophils % Seg Neuts % (Manual) Lymphocytes % (Manual) Monocytes % (Manual) Seg Neutrophils # Seg Neutrophils # Man Lymphocytes # (Manual) Monocytes # (Manual) PT APTT D-Dimer Heparin Anti-Xa Level ABG pH POC ABG pCO2 POC ABG pO2 ABG pO2 ABG Hemoglobin ABG Oxyhemoglobin ABG Sodium ABG Potassium ABG Chloride ABG Glucose Carboxyhemoglobin Sodium Potassium Chloride Carbon Dioxide BUN 49 H Creatinine 1.3 H Glucose 194 H POC Glucose 184 H 190 H Lactic Acid Calcium Phosphorus 5.40 H Magnesium 2.90 H Ferritin AST ALT Alkaline Phosphatase Lactate Dehydrogenase Troponin T C-Reactive Protein Total Protein Albumin HDL Cholesterol Arterial Blood Glucose Arterial Blood Ionized Calcium Urine WBC (Auto) Urine Creatinine 06/16/21 06/16/21 06/16/21 18:51 18:51 23:13 WBC 12.4 H RBC 2.22 L Hgb 7.3 L Hct 22.4 L MCV 101 H MCH 33 H MCHC RDW [place] % (Auto) [place] # (Auto) Seg Neutrophils % Seg Neuts % (Manual) Lymphocytes % (Manual) Monocytes % (Manual) Seg Neutrophils # Seg Neutrophils # Man Lymphocytes # (Manual) Monocytes # (Manual) PT APTT 64.1 H* D-Dimer Heparin Anti-Xa Level ABG pH POC ABG pCO2 POC ABG pO2 ABG pO2 ABG Hemoglobin ABG Oxyhemoglobin ABG Sodium ABG Potassium ABG Chloride ABG Glucose Carboxyhemoglobin Sodium Potassium Chloride Carbon Dioxide BUN Creatinine Glucose POC Glucose 160 H Lactic Acid Calcium Phosphorus Magnesium Ferritin AST ALT Alkaline Phosphatase Lactate Dehydrogenase Troponin T C-Reactive Protein Total Protein Albumin HDL Cholesterol Arterial Blood Glucose Arterial Blood Ionized Calcium Urine WBC (Auto) Urine Creatinine 06/17/21 06/17/21 06/17/21 04:19 05:02 11:56 WBC RBC Hgb Hct MCV MCH MCHC RDW [place] % (Auto) [place] # (Auto) Seg Neutrophils % Seg Neuts % (Manual) Lymphocytes % (Manual) Monocytes % (Manual) Seg Neutrophils # Seg Neutrophils # Man Lymphocytes # (Manual) Monocytes # (Manual) PT APTT D-Dimer Heparin Anti-Xa Level 1.53 H ABG pH POC ABG pCO2 POC ABG pO2 ABG pO2 ABG Hemoglobin ABG Oxyhemoglobin ABG Sodium ABG Potassium ABG Chloride ABG Glucose Carboxyhemoglobin Sodium Potassium Chloride Carbon Dioxide BUN Creatinine Glucose POC Glucose 167 H 166 H Lactic Acid Calcium Phosphorus Magnesium Ferritin AST ALT Alkaline Phosphatase Lactate Dehydrogenase Troponin T C-Reactive Protein Total Protein Albumin HDL Cholesterol Arterial Blood Glucose Arterial Blood Ionized Calcium Urine WBC (Auto) Urine Creatinine 06/17/21 06/17/21 06/17/21 17:48 22:42 23:08 WBC RBC Hgb Hct MCV MCH MCHC RDW [place] % (Auto) [place] # (Auto) Seg Neutrophils % Seg Neuts % (Manual) Lymphocytes % (Manual) Monocytes % (Manual) Seg Neutrophils # Seg Neutrophils # Man Lymphocytes # (Manual) Monocytes # (Manual) PT APTT D-Dimer Heparin Anti-Xa Level ABG pH POC ABG pCO2 POC ABG pO2 ABG pO2 ABG Hemoglobin ABG Oxyhemoglobin ABG Sodium ABG Potassium ABG Chloride ABG Glucose Carboxyhemoglobin Sodium Potassium Chloride Carbon Dioxide BUN Creatinine Glucose POC Glucose 159 H 122 H 114 H Lactic Acid Calcium Phosphorus Magnesium Ferritin AST ALT Alkaline Phosphatase Lactate Dehydrogenase Troponin T C-Reactive Protein Total Protein Albumin HDL Cholesterol Arterial Blood Glucose Arterial Blood Ionized Calcium Urine WBC (Auto) Urine Creatinine 06/18/21 06/18/21 06/18/21 05:40 06:20 13:11 WBC RBC 2.19 L Hgb 7.3 L Hct 21.9 L MCV 100 H MCH 33 H MCHC RDW [place] % (Auto) [place] # (Auto) Seg Neutrophils % Seg Neuts % (Manual) Lymphocytes % (Manual) Monocytes % (Manual) Seg Neutrophils # Seg Neutrophils # Man Lymphocytes # (Manual) Monocytes # (Manual) PT APTT D-Dimer Heparin Anti-Xa Level ABG pH POC ABG pCO2 POC ABG pO2 ABG pO2 ABG Hemoglobin ABG Oxyhemoglobin ABG Sodium ABG Potassium ABG Chloride ABG Glucose Carboxyhemoglobin Sodium Potassium Chloride Carbon Dioxide BUN Creatinine Glucose POC Glucose 174 H 149 H Lactic Acid Calcium Phosphorus Magnesium Ferritin AST ALT Alkaline Phosphatase Lactate Dehydrogenase Troponin T C-Reactive Protein Total Protein Albumin HDL Cholesterol Arterial Blood Glucose Arterial Blood Ionized Calcium Urine WBC (Auto) Urine Creatinine 06/18/21 06/18/21 06/18/21 18:50 21:45 23:12 WBC RBC Hgb Hct MCV MCH MCHC RDW [place] % (Auto) [place] # (Auto) Seg Neutrophils % Seg Neuts % (Manual) Lymphocytes % (Manual) Monocytes % (Manual) Seg Neutrophils # Seg Neutrophils # Man Lymphocytes # (Manual) Monocytes # (Manual) PT APTT D-Dimer Heparin Anti-Xa Level ABG pH POC ABG pCO2 POC ABG pO2 ABG pO2 ABG Hemoglobin ABG Oxyhemoglobin ABG Sodium ABG Potassium ABG Chloride ABG Glucose Carboxyhemoglobin Sodium Potassium Chloride Carbon Dioxide BUN Creatinine Glucose POC Glucose 152 H 151 H 178 H Lactic Acid Calcium Phosphorus Magnesium Ferritin AST ALT Alkaline Phosphatase Lactate Dehydrogenase Troponin T C-Reactive Protein Total Protein Albumin HDL Cholesterol Arterial Blood Glucose Arterial Blood Ionized Calcium Urine WBC (Auto) Urine Creatinine 06/19/21 06/19/21 06/19/21 06:20 06:20 11:54 WBC RBC 2.19 L Hgb 7.4 L Hct 22.2 L MCV 102 H MCH 34 H MCHC RDW [place] % (Auto) 11.3 H [place] # (Auto) 1.0 H Seg Neutrophils % Seg Neuts % (Manual) Lymphocytes % (Manual) Monocytes % (Manual) Seg Neutrophils # Seg Neutrophils # Man Lymphocytes # (Manual) Monocytes # (Manual) PT APTT D-Dimer Heparin Anti-Xa Level ABG pH POC ABG pCO2 POC ABG pO2 ABG pO2 ABG Hemoglobin ABG Oxyhemoglobin ABG Sodium ABG Potassium ABG Chloride ABG Glucose Carboxyhemoglobin Sodium 148 H Potassium Chloride 109.4 H Carbon Dioxide BUN 26 H Creatinine Glucose 109 H POC Glucose 131 H Lactic Acid Calcium Phosphorus Magnesium 2.40 H Ferritin AST ALT Alkaline Phosphatase Lactate Dehydrogenase Troponin T C-Reactive Protein Total Protein Albumin HDL Cholesterol Arterial Blood Glucose Arterial Blood Ionized Calcium Urine WBC (Auto) Urine Creatinine 06/19/21 06/19/21 06/19/21 17:21 21:31 23:13 WBC RBC Hgb Hct MCV MCH MCHC RDW [place] % (Auto) [place] # (Auto) Seg Neutrophils % Seg Neuts % (Manual) Lymphocytes % (Manual) Monocytes % (Manual) Seg Neutrophils # Seg Neutrophils # Man Lymphocytes # (Manual) Monocytes # (Manual) PT APTT D-Dimer Heparin Anti-Xa Level ABG pH POC ABG pCO2 POC ABG pO2 ABG pO2 ABG Hemoglobin ABG Oxyhemoglobin ABG Sodium ABG Potassium ABG Chloride ABG Glucose Carboxyhemoglobin Sodium Potassium Chloride Carbon Dioxide BUN Creatinine Glucose POC Glucose 178 H 174 H 216 H Lactic Acid Calcium Phosphorus Magnesium Ferritin AST ALT Alkaline Phosphatase Lactate Dehydrogenase Troponin T C-Reactive Protein Total Protein Albumin HDL Cholesterol Arterial Blood Glucose Arterial Blood Ionized Calcium Urine WBC (Auto) Urine Creatinine 06/20/21 06/20/21 06/20/21 04:18 05:15 11:22 WBC RBC 2.26 L Hgb 7.7 L Hct 22.9 L MCV 101 H MCH 34 H MCHC RDW [place] % (Auto) [place] # (Auto) Seg Neutrophils % Seg Neuts % (Manual) Lymphocytes % (Manual) Monocytes % (Manual) Seg Neutrophils # Seg Neutrophils # Man Lymphocytes # (Manual) Monocytes # (Manual) PT APTT D-Dimer Heparin Anti-Xa Level ABG pH POC ABG pCO2 POC ABG pO2 ABG pO2 ABG Hemoglobin ABG Oxyhemoglobin ABG Sodium ABG Potassium ABG Chloride ABG Glucose Carboxyhemoglobin Sodium Potassium Chloride Carbon Dioxide BUN Creatinine Glucose POC Glucose 119 H 177 H Lactic Acid Calcium Phosphorus Magnesium Ferritin AST ALT Alkaline Phosphatase Lactate Dehydrogenase Troponin T C-Reactive Protein Total Protein Albumin HDL Cholesterol Arterial Blood Glucose Arterial Blood Ionized Calcium Urine WBC (Auto) Urine Creatinine 06/20/21 06/20/21 06/20/21 13:30 17:58 21:24 WBC RBC Hgb Hct MCV MCH MCHC RDW [place] % (Auto) [place] # (Auto) Seg Neutrophils % Seg Neuts % (Manual) Lymphocytes % (Manual) Monocytes % (Manual) Seg Neutrophils # Seg Neutrophils # Man Lymphocytes # (Manual) Monocytes # (Manual) PT APTT D-Dimer Heparin Anti-Xa Level ABG pH POC ABG pCO2 POC ABG pO2 ABG pO2 ABG Hemoglobin ABG Oxyhemoglobin ABG Sodium ABG Potassium ABG Chloride ABG Glucose Carboxyhemoglobin Sodium Potassium Chloride Carbon Dioxide BUN 31 H Creatinine Glucose 196 H POC Glucose 151 H 141 H Lactic Acid Calcium Phosphorus Magnesium Ferritin AST ALT Alkaline Phosphatase Lactate Dehydrogenase Troponin T C-Reactive Protein Total Protein Albumin HDL Cholesterol Arterial Blood Glucose Arterial Blood Ionized Calcium Urine WBC (Auto) Urine Creatinine 06/20/21 06/21/21 06/21/21 23:46 04:07 04:59 WBC RBC Hgb Hct MCV MCH MCHC RDW [place] % (Auto) [place] # (Auto) Seg Neutrophils % Seg Neuts % (Manual) Lymphocytes % (Manual) Monocytes % (Manual) Seg Neutrophils # Seg Neutrophils # Man Lymphocytes # (Manual) Monocytes # (Manual) PT APTT D-Dimer Heparin Anti-Xa Level ABG pH POC ABG pCO2 POC ABG pO2 ABG pO2 ABG Hemoglobin ABG Oxyhemoglobin ABG Sodium ABG Potassium ABG Chloride ABG Glucose Carboxyhemoglobin Sodium Potassium Chloride Carbon Dioxide BUN 36 H Creatinine Glucose 220 H POC Glucose 137 H 213 H Lactic Acid Calcium Phosphorus Magnesium Ferritin AST 79 H ALT 79 H Alkaline Phosphatase 159 H Lactate Dehydrogenase Troponin T C-Reactive Protein Total Protein Albumin 2.6 L HDL Cholesterol Arterial Blood Glucose Arterial Blood Ionized Calcium Urine WBC (Auto) Urine Creatinine 06/21/21 06/21/21 06/21/21 08:10 11:45 17:18 WBC RBC 2.13 L Hgb 7.4 L Hct 21.1 L MCV 99 H MCH 35 H MCHC 35 H RDW [place] % (Auto) 9.3 H [place] # (Auto) 0.9 H Seg Neutrophils % Seg Neuts % (Manual) Lymphocytes % (Manual) Monocytes % (Manual) Seg Neutrophils # Seg Neutrophils # Man Lymphocytes # (Manual) Monocytes # (Manual) PT APTT D-Dimer Heparin Anti-Xa Level ABG pH POC ABG pCO2 POC ABG pO2 ABG pO2 ABG Hemoglobin ABG Oxyhemoglobin ABG Sodium ABG Potassium ABG Chloride ABG Glucose Carboxyhemoglobin Sodium Potassium Chloride Carbon Dioxide BUN Creatinine Glucose POC Glucose 176 H 129 H Lactic Acid Calcium Phosphorus Magnesium Ferritin AST ALT Alkaline Phosphatase Lactate Dehydrogenase Troponin T C-Reactive Protein Total Protein Albumin HDL Cholesterol Arterial Blood Glucose Arterial Blood Ionized Calcium Urine WBC (Auto) Urine Creatinine 06/21/21 06/22/21 06/22/21 23:02 04:36 04:36 WBC RBC 2.38 L Hgb 8.0 L Hct 23.7 L MCV 100 H MCH 33 H MCHC RDW [place] % (Auto) [place] # (Auto) Seg Neutrophils % Seg Neuts % (Manual) Lymphocytes % (Manual) Monocytes % (Manual) Seg Neutrophils # Seg Neutrophils # Man Lymphocytes # (Manual) Monocytes # (Manual) PT APTT D-Dimer Heparin Anti-Xa Level ABG pH POC ABG pCO2 POC ABG pO2 ABG pO2 ABG Hemoglobin ABG Oxyhemoglobin ABG Sodium ABG Potassium ABG Chloride ABG Glucose Carboxyhemoglobin Sodium Potassium Chloride Carbon Dioxide BUN 36 H Creatinine Glucose 167 H POC Glucose 111 H Lactic Acid Calcium Phosphorus Magnesium Ferritin AST ALT Alkaline Phosphatase Lactate Dehydrogenase Troponin T C-Reactive Protein Total Protein Albumin HDL Cholesterol Arterial Blood Glucose Arterial Blood Ionized Calcium Urine WBC (Auto) Urine Creatinine 06/22/21 06/22/21 06/22/21 05:22 12:12 18:17 WBC RBC Hgb Hct MCV MCH MCHC RDW [place] % (Auto) [place] # (Auto) Seg Neutrophils % Seg Neuts % (Manual) Lymphocytes % (Manual) Monocytes % (Manual) Seg Neutrophils # Seg Neutrophils # Man Lymphocytes # (Manual) Monocytes # (Manual) PT APTT D-Dimer Heparin Anti-Xa Level ABG pH POC ABG pCO2 POC ABG pO2 ABG pO2 ABG Hemoglobin ABG Oxyhemoglobin ABG Sodium ABG Potassium ABG Chloride ABG Glucose Carboxyhemoglobin Sodium Potassium Chloride Carbon Dioxide BUN Creatinine Glucose POC Glucose 160 H 176 H 161 H Lactic Acid Calcium Phosphorus Magnesium Ferritin AST ALT Alkaline Phosphatase Lactate Dehydrogenase Troponin T C-Reactive Protein Total Protein Albumin HDL Cholesterol Arterial Blood Glucose Arterial Blood Ionized Calcium Urine WBC (Auto) Urine Creatinine 06/22/21 06/22/21 06/23/21 21:30 22:29 04:00 WBC RBC 2.22 L Hgb 7.5 L Hct 22.4 L MCV 101 H MCH 34 H MCHC RDW [place] % (Auto) [place] # (Auto) Seg Neutrophils % Seg Neuts % (Manual) Lymphocytes % (Manual) Monocytes % (Manual) Seg Neutrophils # Seg Neutrophils # Man Lymphocytes # (Manual) Monocytes # (Manual) PT APTT D-Dimer Heparin Anti-Xa Level ABG pH POC ABG pCO2 POC ABG pO2 ABG pO2 ABG Hemoglobin ABG Oxyhemoglobin ABG Sodium ABG Potassium ABG Chloride ABG Glucose Carboxyhemoglobin Sodium Potassium Chloride Carbon Dioxide BUN Creatinine Glucose POC Glucose 175 H 222 H Lactic Acid Calcium Phosphorus Magnesium Ferritin AST ALT Alkaline Phosphatase Lactate Dehydrogenase Troponin T C-Reactive Protein Total Protein Albumin HDL Cholesterol Arterial Blood Glucose Arterial Blood Ionized Calcium Urine WBC (Auto) Urine Creatinine 1006/23/21 06/23/21 04:00 05:09 10:50 WBC RBC Hgb Hct MCV MCH MCHC RDW [place] % (Auto) [place] # (Auto) Seg Neutrophils % Seg Neuts % (Manual) Lymphocytes % (Manual) Monocytes % (Manual) Seg Neutrophils # Seg Neutrophils # Man Lymphocytes # (Manual) Monocytes # (Manual) PT APTT D-Dimer Heparin Anti-Xa Level ABG pH 7.484 H POC ABG pCO2 POC ABG pO2 ABG pO2 ABG Hemoglobin 7.1 L ABG Oxyhemoglobin ABG Sodium ABG Potassium 4.6 H ABG Chloride ABG Glucose 158 H Carboxyhemoglobin Sodium Potassium 5.2 H Chloride Carbon Dioxide BUN 43 H Creatinine 1.3 H Glucose 237 H POC Glucose 212 H Lactic Acid Calcium Phosphorus Magnesium Ferritin AST ALT Alkaline Phosphatase Lactate Dehydrogenase Troponin T C-Reactive Protein Total Protein Albumin HDL Cholesterol Arterial Blood Glucose 158 H Arterial Blood Ionized Calcium 4.3 L Urine WBC (Auto) Urine Creatinine 06/23/21 06/23/21 06/23/21 12:16 17:03 23:27 WBC RBC Hgb Hct MCV MCH MCHC RDW [place] % (Auto) [place] # (Auto) Seg Neutrophils % Seg Neuts % (Manual) Lymphocytes % (Manual) Monocytes % (Manual) Seg Neutrophils # Seg Neutrophils # Man Lymphocytes # (Manual) Monocytes # (Manual) PT APTT D-Dimer Heparin Anti-Xa Level ABG pH POC ABG pCO2 POC ABG pO2 ABG pO2 ABG Hemoglobin ABG Oxyhemoglobin ABG Sodium ABG Potassium ABG Chloride ABG Glucose Carboxyhemoglobin Sodium Potassium Chloride Carbon Dioxide BUN Creatinine Glucose POC Glucose 144 H 199 H 250 H Lactic Acid Calcium Phosphorus Magnesium Ferritin AST ALT Alkaline Phosphatase Lactate Dehydrogenase Troponin T C-Reactive Protein Total Protein Albumin HDL Cholesterol Arterial Blood Glucose Arterial Blood Ionized Calcium Urine WBC (Auto) Urine Creatinine 06/24/21 06/24/21 06/24/21 04:40 04:40 05:21 WBC RBC 2.07 L Hgb 7.1 L Hct 20.4 L MCV 99 H MCH 34 H MCHC 35 H RDW [place] % (Auto) [place] # (Auto) Seg Neutrophils % Seg Neuts % (Manual) Lymphocytes % (Manual) Monocytes % (Manual) Seg Neutrophils # Seg Neutrophils # Man Lymphocytes # (Manual) Monocytes # (Manual) PT APTT D-Dimer Heparin Anti-Xa Level ABG pH POC ABG pCO2 POC ABG pO2 ABG pO2 ABG Hemoglobin ABG Oxyhemoglobin ABG Sodium ABG Potassium ABG Chloride ABG Glucose Carboxyhemoglobin Sodium Potassium Chloride Carbon Dioxide BUN 45 H Creatinine Glucose 229 H POC Glucose 192 H Lactic Acid Calcium Phosphorus Magnesium Ferritin AST 83 H ALT 80 H Alkaline Phosphatase 142 H Lactate Dehydrogenase Troponin T C-Reactive Protein Total Protein Albumin 2.8 L HDL Cholesterol Arterial Blood Glucose Arterial Blood Ionized Calcium Urine WBC (Auto) Urine Creatinine 06/24/21 06/24/21 06/24/21 12:11 18:14 23:17 WBC RBC Hgb Hct MCV MCH MCHC RDW [place] % (Auto) [place] # (Auto) Seg Neutrophils % Seg Neuts % (Manual) Lymphocytes % (Manual) Monocytes % (Manual) Seg Neutrophils # Seg Neutrophils # Man Lymphocytes # (Manual) Monocytes # (Manual) PT APTT D-Dimer Heparin Anti-Xa Level ABG pH POC ABG pCO2 POC ABG pO2 ABG pO2 ABG Hemoglobin ABG Oxyhemoglobin ABG Sodium ABG Potassium ABG Chloride ABG Glucose Carboxyhemoglobin Sodium Potassium Chloride Carbon Dioxide BUN Creatinine Glucose POC Glucose 197 H 181 H 185 H Lactic Acid Calcium Phosphorus Magnesium Ferritin AST ALT Alkaline Phosphatase Lactate Dehydrogenase Troponin T C-Reactive Protein Total Protein Albumin HDL Cholesterol Arterial Blood Glucose Arterial Blood Ionized Calcium Urine WBC (Auto) Urine Creatinine 06/25/21 06/25/21 05:25 11:32 WBC RBC Hgb Hct MCV MCH MCHC RDW [place] % (Auto) [place] # (Auto) Seg Neutrophils % Seg Neuts % (Manual) Lymphocytes % (Manual) Monocytes % (Manual) Seg Neutrophils # Seg Neutrophils # Man Lymphocytes # (Manual) Monocytes # (Manual) PT APTT D-Dimer Heparin Anti-Xa Level ABG pH POC ABG pCO2 POC ABG pO2 ABG pO2 ABG Hemoglobin ABG Oxyhemoglobin ABG Sodium ABG Potassium ABG Chloride ABG Glucose Carboxyhemoglobin Sodium Potassium Chloride Carbon Dioxide BUN Creatinine Glucose POC Glucose 151 H 196 H Lactic Acid Calcium Phosphorus Magnesium Ferritin AST ALT Alkaline Phosphatase Lactate Dehydrogenase Troponin T C-Reactive Protein Total Protein Albumin HDL Cholesterol Arterial Blood Glucose Arterial Blood Ionized Calcium Urine WBC (Auto) Urine Creatinine Allied health notes reviewed: RT
--- NOTE | 2021-06-25 15:23 | Progress Note ---
Assessment and Plan This is a 65 year old female with HTN, nonepileptic spells, PTSD, close head injury, DM, CAD s/p stents and CA, independence, hyperlipidemia admitted with sepsis, pneumonia, acute proximal respiratory failure, toxic metabolic encephalopathy, suspected anoxic brain injury, metabolic acidosis Assessment and Plan: --S/p cardiac arrest, A. fib with RVR, h/o HTN -Currently on Labetalol, Hydralazine, valsartan, & Doxazosin -PRN hydral IV -Cardiology consulted, appreciate recommendations -05/2020 dobutamine thallium stress test showed normal perfusion study. -05/2020 echo showed normal left ventricular systolic function. -NIBP per protocol --Toxic metabolic encephalopathy, likely anoxic brain injury with bilateral watershed infarct, tonic-cloninc seziure; h/o nonepileptic spells, PTSD, closed head injury -Neurology consulted, appreciate recommendations -CT head completed->see results, without acute or large territorial infarct -Per neurology: MRI brain is suggestive of water shed Infarct Bilateral -- mostly related to Hypoperfusion -06/01 repeat MRI brain noted, possible subacute ischemic changes. -Intact cough/gag, pupils sluggish -Keppra -EEG showed no signs of seizure -prn ativan -Patient is off sedation, open eyes spontaneously, pupils reactive, with +gag and cough. -Not following commands, no movement to stimuli --Acute hypoxic respiratory failure -[facility] consulted, appreciate recommendations - s/p trach on 06/12 -06/15 T piece trials started, currently on T-piece -Tolerated Tpiece trial for over 24hrs -ABG/CXR per [facility] -Continuous SP02 monitoring for SPO2 above 92% -Scopalamine and robinul for secretions -Now transferred to telemetry -- protein -aspen malnutrition -Ntr consult for TF -PEG placed 06/12 - 06/22 KUB with no acute abnormality -PPI- Pepcid -BR: senokot, maalox, colace; prn dulcolax -BM: 06/22 -- Acute renal injury likely 2/2 to vasomotor nephrology -Renal function remains stable and was normal on admission -strict I&O -daily weights -purwick -Trend BMP -Monitor and replete electrolytes as needed -FWF 100 q 4hours -hypernatremia and Cr slightly improving --Hyperglycemia, h/o DM -SSI -Lantus, titrate as needed -Avoid hypoglycemia -accucheck q6 -- Leukocytosis, likely stress-induced and from underlying pneumonia -CTA chest without evidence of PE -IV heparin d/t afib -transitioned to PO Eliquis -Trend CBC -Transfuse for hgb<7 --Sepsis, Bilateral Lower Lobe Infiltrates/community-acquired pneumonia -COVID 19 PCR (-) -s/p cefepime 05/25-05/29 -admit cxr with infiltrates, CTA chest with dense dependent consolidation/atelectasis in lungs -Monitor temp and WBC curve -noted spike in temp overnight -CXR, Blood culture, UA, 06/19Sputum culture pos. Ecoli -BC/UC/Tracheal aspirate NGTD from 05/25 -Covid 19 PCR negative -06/07 CRP 28.90 and procal 0.36 -Tracheal aspirate gram-negative rods, empiric antibiotics cefepime ordered, follow culture sensitivities - Cefepine switch to rocephin per sensitivity -Consider ID evaluation if febrile --DVT prophylaxis --Full CODE STATUS Hospital Course to Date: 05/26/21: Updated family at the bedside, Covid test is negative. Will order EEG and neuro consult. Remains intubated, follow clinically. Sedated on Midazolam and Propofol, just received one dose of Lorazepam for witnessed seizure by RN. NSR now, on heparin drip 05/27/21; remains intubated. pending EEG and neuro eval. wean off vent as tolerated. Continue heparin drip per cardiology, replete potassium yesterday, f ollow BMP. BP noted to be elevated, next started on antihypertensives. 05/28/21; BP noted to be elevated, initiated on antihypertensive, remains intubated. Pending neurology evaluation and EEG. Continue supportive care, follow BMP. 05/29/21: Ordered for MRI brain, continue Keppra, pending EEG. Appreciate neuro recommendation. follow BMP, tolerating TF 05/30/21: Patient remains intubated, pending MRI brain, follow neurology recommendation. EEG showed diffuse slowing. 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 off sedation now, cont to follow. gurded prognosis 06/01: MRI was suggestive of watershed infarct bilaterally and was seen by neurology and recommend to do MRI with gadolinium. Patient is off sedation and still unresponsive. Prognosis is guarded. 06/02: Continue current management. Prognosis is guarded. Patient needs trach. 06/03: Patient is unresponsive spite of all sedatives. Prognosis is guarded to poor. Neurology consult appreciated. 06/04: Patient is unresponsive. Patient is off sedatives. Blood sugar is uncontrolled and I adjusted her insulin. Neurology consult appreciated. Prog nosis is guarded to poor. 06/05/21- Patient remains ETT and on vent support. Off sedation with some improvement in neuro status, but is not following commands. Patient is tolerating SBT trial this am, still on the heparin gtt. AM labs is pending. Patient is still hyperglycemic, increased Qhs lantus. Continue supportive care. 06/06/21- Patient is intubated and on the vent. No longer on sedation, awake but unresponsive, tolerating SBT. Hyperglycemia this am, X1 dose of kayaxalate orderd. Persistent hyperglycemia, insulin adjusted. Continue to monitor electrolytes, repeat BMP this afternoon and am labs ordered. 06/07/21- Patient remains intubated and on the vent. Neuro status is unchanged, spontaneously open yes but is not following commands. SBT trial again, plan to place back on a rate overnight. Leukocytosis noted from this morning lab, stat procalc and CRP ordered, d/w CCM no abx at this time. K 5.4 today, kayalalxate given. Continue to monitor leukocytosis and electrolytes. Am labs ordered 06/08/21- Patient remains intubated and on the vent with no significant change in her neuro status. Patient with no BM in 7days, abdominal soft with positive bowel sounds, colace added and PRN ducolax Supp PRN. Continue to monitor leukocytosis and electrolytes, am labs ordered. Plan for trach and PEG, surgery consulted. 06/09/21- Patient remains stable, intubated with no significant change in neuro status. Trach and Peg cancelled for today. Plan for possibly next week. Hyperkalemia again today, chart review for possible meds interaction. X1 dose of kayexalate ordered. Still no BM today. Episode of emesis today, TF held and NGT to LIS until tommorrow. Orders place for KUB today and Chest XR for the morning. Morning labs ordered. 06/10: Continue supportive care. Trach and PEG planned for early next week. KUB and x-ray with no significant change. Opacity still persist. Critical care management noted. Patient still persistent leukocytosis we will continue to monitor mild hypokalemia noted will replace with potassium. Also noted mild hyp ernatremia. Agree with holding tube feeds at this time 06/11: Discussed with nursing staff to change to history trickle feeds. Patient is planned for trach and PEG Saturday or Saturday. Continue current management also discussed to hold heparin drip for planned procedure with noted timeframe. We will recheck labs to ensure correction of electrolytes. 06/12/21- Patient's status is unchanged. No significant events overnight. Plan for trach and PEG today. TF and heparin gtt on hold. Continue supportive care. Continue to monitor electrolytes, am labs ordered. 06/13/21- Patient is s/p trach and PEG. D/w surgery okay to use PEGTube and restart TF. Heparin gtt was also restarted per protocol. Persistent hypernatremia and FWF increased for 48hrs, mild hyperkalemia noted no interven tion at this time. Continue to monitor renal function and electrolytes, am labs ordered. 06/14: Transition to PO anticoagulation from heparin gtt tomorrow. plan to place on tpiece tomorrow. 06/15: Patient spiked a temp today and was root cultured, h/h decreasing and stool occult ordered. Increase in insulin. T piece trials today. Small volume emesis x2 06/16; patient is on T-piece, On heparin drip for A. fib, will transition to Eliquis , I discussed the case with slag worker 06/17; tracheal cultures positive for gram-negative rods, ordered cefepime, follow cultures Consider ID consult 06/18 no significant change, patient receiving cefepime[sputum cultures gram- negative rods] Follow sensitivities, ID if needed 06/19- Patient was place on Tpiece this morning, plan for Tpiece for 12hrs and rest on the vent overnight. Patient remains afebrile, leukocytosis improved, and patient remains on empiric IV abx. D/W CCM possible ID consult if worsen. 06/20- No significant change in patient status. Patient is tolerating Tpiece, plan to rest on the vent overnight. Patient TMAX 99.8, leukocytosis remains stable, cefepine transition to Rocephin for +Ecoli in sputum. Consider ID consult if febrile. Will continue to monitor, am labs ordered 06/21- Patient remains stable on the vent, continue daily tpiece trial for 12 hrs then rest on the vent at night. Low grade temp noted TMAx 100.7, d/w [facility] ID consult placed for further recommendations. Continue current IV abx for now. Will continue to monitor, am labs ordered. 06/22- Patient is tolerating tpiece @28% and 6L, SPO2 @100%. Vomited yesterday, KUB and CXR are unremarkable, reglan added Q8hrs. Plan to stay on Tpiece overnight, repeat ABG at 2100. Will continue to monitor 06/23- Patient tolerated Tpiece for over 24hrs, today's ABG noted, d/w [facility] patient is stable to be transfer to telemetry. Slight hyperkalemia noted, X1 dose of kayaxalate ordered, renal function remains stable. Per case management, patient was denied for LTACH and Rehab, plan for possible SNF placement at this time. Continue to monitor renal function and electrolytes. 06/24: Continue supportive care, LTAC placement denied. Plan for possible SNF placement continue to provide supportive care 06/25: Discussed with patient's son in details and they want to set up home hospice for the patient. Continue to follow clinically with supportive care. document imaging manager consulted for hospice placement. Subjective Date of service: 06/25/21 Principal diagnosis: Ac hypoxemic resp failure; Cardiac arrest; Seizures; Sepsis; AMS; A-Fib RVR Interval history: Patient seen and examined. Medical records and medication list reviewed. Pt is on T-piece, off sedation, on TF Discussed plan of care at bedside with patient.s RN Pending placement Objective - Exam Narrative Exam: General appearance: Present: Remains on T-piece, does not follow command, nonverbal - EENT Eyes: Present: PERRL - Respiratory Respiratory effort: normal Respiratory: bilateral: diminished - Cardiovascular Rhythm: regular Heart Sounds: Present: S1 & S2 - Extremities Extremities: no ischemia, pulses intact, pulses symmetrical Extremity abnormal: edema - Peripheral Assessment Generalized Edema Type: Non-pitting Edema Degree: 1+ Capillary Refill: < 3 seconds Skin Temperature: Warm Peripheral Pulses: within normal limits - Abdominal General gastrointestinal: soft, non-tender, normal bowel sounds - Integumentary Integumentary: Present: clear, warm, dry - Psychiatric Psychiatric: other ([facility]) - Neurologic Neurologic: other ([facility]) - Allied Health Allied health notes reviewed: nursing - Constitutional Vitals: Vital Signs - 12hr 06/25/21 06/25/21 06/25/21 03:31 04:40 06:46 Temperature 98.6 F Pulse Rate 83 83 Respiratory 18 Rate Blood Pressure 110/46 110/46 Blood Pressure [Left] O2 Sat by Pulse 98 Oximetry O2 Sat by Pulse 99 Oximetry [ Assessment] 06/25/21 06/25/21 06/25/21 08:20 09:13 09:14 Temperature 98.8 F Pulse Rate 87 87 87 Respiratory 18 Rate Blood Pressure 143/65 143/65 Blood Pressure 143/65 [Left] O2 Sat by Pulse 98 Oximetry O2 Sat by Pulse Oximetry [ Assessment] 06/25/21 06/25/21 06/25/21 09:15 11:28 13:02 Temperature Pulse Rate 87 77 Respiratory 18 Rate Blood Pressure 143/65 Blood Pressure 144/72 [Left] O2 Sat by Pulse 99 99 Oximetry O2 Sat by Pulse Oximetry [ Assessment] 06/25/21 14:06 Temperature Pulse Rate 78 Respiratory Rate Blood Pressure 145/75 Blood Pressure [Left] O2 Sat by Pulse Oximetry O2 Sat by Pulse Oximetry [ Assessment] - Labs CBC & Chem 7: 06/24/21 04:40 06/24/21 04:40 Labs: Abnormal lab results 06/24/21 06/24/21 06/25/21 Range/Units 18:14 23:17 05:25 POC Glucose 181 H 185 H 151 H (70-105) mg/dL 06/25/21 Range/Units 11:32 POC Glucose 196 H (70-105) mg/dL HEART Score - HEART Score Troponin: Troponin T 0.226 ng/mL (0.00-0.029) H* D 05/25/21 15:19
[2021-06-25] MEDS: ACETYLCYSTEINE 20% 200 MG/1 ML *FOR INHALATION USE INHALATION SCH (19:54)
[2021-06-25] MEDS: INSULIN GLARGINE 100 UNITS/ML SUB-Q SCH (22:20)
[2021-06-26] MEDS: INSULIN LISPRO 100 UNIT/ML SUB-Q SCH ×4 (01:43→22:03)
[2021-06-26] MEDS: FREE WATER PO SCH ×4 (02:10→22:04)
[2021-06-26] MEDS: GLYCOPYRROLATE 2 MG TAB PO SCH ×3 (05:24→22:01)
[2021-06-26] MEDS: hydrALAZINE 25 MG TAB PO SCH ×3 (05:24→22:03)
[2021-06-26] MEDS: METOCLOPRAMIDE 10 MG/2 ML INJ IV SCH ×3 (05:25→22:02)
[2021-06-26] MEDS: levETIRAcetam 500 MG/5 ML ORAL LIQD FEEDTUBE SCH ×2 (10:27→22:02)
[2021-06-26] MEDS: APIXABAN 5 MG TAB PO SCH ×2 (10:28→22:01)
[2021-06-26] MEDS: SCOPOLAMINE TRANSDERMAL PATCH 72 HR TD SCH (10:29)
[2021-06-26] MEDS: DOCUSATE SODIUM 100 MG/10 ML ORAL LIQD PO SCH ×2 (10:30→22:09)
--- NOTE | 2021-06-26 11:29 | Discharge Summary ---
Providers - Providers Date of Admission: 05/25/21 13:48 Date of discharge: 06/26/21 Attending physician: KASHIF MOORE 05/25/21 18:38 Consult to Physician [CONS] Routine Comment: Consulting Provider: [place] Physician Instructions: Reason For Exam: cardiac arrest, resp failure 05/25/21 19:04 Consult to Dietitian/Nutrition [CONS] Routine Physician Instructions: Reason For Exam: Reason for Consult: Write/Manage Tube Feeding 05/26/21 13:26 Consult to Physician [CONS] Routine Comment: Consulting Provider: KEVIN WILSON Physician Instructions: Reason For Exam: seizure 05/29/21 09:33 Midline [Consult to PICC Line RN] [CONS] Routine Reason For Exam: midline-edema Type Line:: Midline 06/05/21 12:20 Consult to Case Management [CONS] Routine Services Needed at Discharge: Other Notified:: KEANU Was contact made?: Yes If yes, spoke with:: Miss Aguilar Time called:: 10:46 Comment:: LTAC placement 06/08/21 15:23 Consult to Physician [CONS] Routine Comment: Spoke with dr. Wilson/ roque Consulting Provider: HERMILA WILSON Physician Instructions: Reason For Exam: Tracheostomy & PEG placement 06/13/21 10:18 Consult to Dietitian/Nutrition [CONS] Routine Physician Instructions: Assess nutrtn needs, initiate, modify, manage TF Reason For Exam: Reason for Consult: Write/Manage Tube Feeding Reason for Consult: Write/Manage Tube Feeding 06/25/21 15:25 Consult to Case Management [CONS] Routine Services Needed at Discharge: Other Notified:: supervisor case loading Additional Physician Instructions: hospice Primary care physician: SENIOR GROUP MANAGER Hospitalization Condition: Critical Disposition: 01 HOME / SELF CARE / HOMELESS Final Discharge Diagnosis (Prints w/discharge instructions): --S/p cardiac arrest, A. fib with RVR, h/o HTN. --Toxic metabolic encephalopathy, likely anoxic brain injury with bilateral watershed infarct,. --Acute hypoxic respira tory failure. -- protein -aspen malnutrition, moderate. -- Acute renal injury likely 2/2 to vasomotor nephrology, not POA. --Hyperglycemia, h/o DM. -- Leukocytosis, likely stress-induced and from underlying pneumonia. --Sepsis, Bilateral Lower Lobe Infiltrates/community-acquired pneumonia. Time spent for discharge: 34 minutes Core Measure Documentation - Palliative Care Palliative Care/ Comfort Measures: Hospice Care - Core Measures Any of the following diagnoses?: none Exam - Physical Exam Narrative exam: General appearance: Present: Remains on T-piece, does not follow command, nonverbal - EENT Eyes: Present: PERRL - Respiratory Respiratory effort: normal Respiratory: bilateral: diminished - Cardiovascular Rhythm: regular Heart Sounds: Present: S1 & S2 - Extremities Extremities: no ischemia, pulses intact, pulses symmetrical Extremity abnormal: edema - Peripheral Assessment Generalized Edema Type: Non-pitting Edema Degree: 1+ Capillary Refill: < 3 seconds Skin Temperature: Warm Peripheral Pulses: within normal limits - Abdominal General gastrointestinal: soft, non-tender, normal bowel sounds - Integumentary Integumentary: Present: clear, warm, dry - Psychiatric Psychiatric: other ([facility]) - Neurologic Neurologic: other ([facility]) - Allied Health Allied health notes reviewed: nursing - Constitutional Vitals: Temp Pulse Resp BP Pulse Ox 98.6 F 79 18 145/62 100 06/26/21 04:45 06/26/21 04:45 06/26/21 04:45 06/26/21 04:45 06/26/21 04:45 Plan Activity: up only with assistance Diet: other (TF diet ) Follow up with: PRIMARY CAREMD [Primary Care Provider] - 3-5 Days
[2021-06-26] MEDS: VALSARTAN 160MG TAB PO SCH ×2 (13:19→22:02)
[2021-06-26] MEDS: DOXAZOSIN 1 MG TAB PO SCH ×2 (13:20→22:04)
[2021-06-26] MEDS: POLYETHYLENE GLYCOL 3350 17 GM POWDER PO SCH (13:24)
[2021-06-26] MEDS: SENNOSIDES/DOCUSATE SODIUM 8.6/50 MG TAB FEEDTUBE SCH ×2 (13:30→22:09)
[2021-06-26] MEDS: FAMOTIDINE 20 MG TAB FEEDTUBE SCH ×2 (13:30→22:01)
--- NOTE | 2021-06-26 19:34 | Progress Note ---
Assessment and Plan This is a 65 year old female with HTN, nonepileptic spells, PTSD, close head injury, DM, CAD s/p stents and NC, independence, hyperlipidemia admitted with sepsis, pneumonia, acute respiratory failure, toxic metabolic encephalopathy, suspected anoxic brain injury, metabolic acidosis. Patient sleeping at this time.Not responding to verbal stimuli.. Resting on T tube , FIO2 28%. O2 saturation 100%. No acute respiratory distress. Patient afebrile. No leukocytosis. Blood pressure 164/62, Pulse 62. Chest xray done 06/23/21 reported Left basilar opacity which may represent atelectasis versus aspiration pneumonitis. Patient is on APIXABAN, Famitidine and Scopalamine. - Patient Problems (1) Acute hypoxemic respiratory failure Current Visit: Yes Status: Acute Plan to address problem: Patient is on T tube, FIO2 28%. Patient is on Apixaban. Patient is on famotidine. Albuterol aerosol treatments q 6 hours prn for shortness of breath (2) ACS (acute coronary syndrome) Current Visit: Yes Status: Acute Plan to address problem: Management as per cardiology. (3) Atrial fibrillation with RVR Current Visit: Yes Status: Acute Plan to address problem: Patient is on Apixaban. Management as per cardiology. (4) Cardiac arrest Current Visit: Yes Status: Acute Plan to address problem: Patient resucitated. Patient ROSC. (5) Toxic metabolic encephalopathy Current Visit: Yes Status: Acute Plan to address problem: Management as per primary care and neurology. (6) Uncontrolled hypertension Current Visit: Yes Status: Acute Plan to address problem: Management as per primary care . (7) Seizure Current Visit: No Status: Acute Plan to address problem: Management as per primary care neurology. Subjective Date of service: 06/26/21 Principal diagnosis: Ac hypoxemic resp failure; Cardiac arrest; Seizures; Sepsis; AMS; A-Fib RVR Interval history: This is a 65 year old female with HTN, nonepileptic spells, PTSD, close head injury, DM, CAD s/p stents and NC, independence, hyperlipidemia admitted with sepsis, pneumonia, acute respiratory failure, toxic metabolic encephalopathy, suspected anoxic brain injury, metabolic acidosis. Patient sleeping at this time.Not responding to verbal stimuli.. Resting on T tube , FIO2 28%. O2 saturation 100%. No acute respiratory distress. Patient afebrile. No leukocytosis. Blood pressure 164/62, Pulse 62. Chest xray done 06/23/21 reported Left basilar opacity which may represent atelectasis versus aspiration pneumonitis. Patient is on APIXABAN, Famitidine and Scopalamine. Objective Vital Signs - 12hr 06/26/21 06/26/21 06/26/21 12:05 12:46 13:19 Temperature 98.7 F Pulse Rate 82 80 Respiratory 16 Rate Blood Pressure 155/63 Blood Pressure 155/63 [Left] O2 Sat by Pulse 100 100 Oximetry O2 Sat by Pulse Oximetry [ Assessment] 06/26/21 06/26/21 06/26/21 13:20 13:22 13:31 Temperature Pulse Rate 80 80 80 Respiratory Rate Blood Pressure 155/63 155/63 155/63 Blood Pressure [Left] O2 Sat by Pulse Oximetry O2 Sat by Pulse Oximetry [ Assessment] 06/26/21 06/26/21 06/26/21 15:06 18:43 18:59 Temperature 98.9 F Pulse Rate 78 Respiratory 20 18 Rate Blood Pressure 164/62 Blood Pressure [Left] O2 Sat by Pulse 100 100 Oximetry O2 Sat by Pulse 100 Oximetry [ Assessment] Constitutional: no acute distress, asleep, other (elderly female with normal respiratory effort at rest , trach to ATP) Eyes: non-icteric ENT: oropharynx moist, other (+ midline tracheostomy with mild secretions) Neck: supple, no lymphadenopathy Effort: mildly labored Ascultation: Bilateral: diminished breath sounds, rhonchi (scant) Percussion: Bilateral: not dull Cardiovascular: regular rate and rhythm, other (S1,S2) Gastrointestinal: normoactive bowel sounds, soft, non-tender, non-distended (protuberant), other (+ PEG tube) Integumentary: normal Extremities: no cyanosis, pulses normal, no ischemia or petechiae, other (Right femoral CVL) Neurologic: pupils equal and round, unable to assess, other (encephalopathic) Psychiatric: other (unable to assess) CBC and BMP: 06/24/21 04:40 06/24/21 04:40 ABG, PT/INR, D-dimer: ABG ABG pH 7.484 (7.320-7.450) H 06/23/21 10:50 POC ABG pCO2 39.0 mmHg (32.0-48.0) 06/23/21 10:50 ABG pCO2 30.3 mm Hg 05/29/21 05:28 POC ABG pO2 96.2 mmHg (83-108) 06/23/21 10:50 ABG pO2 96.2 mm Hg (80.0-90.0) H 05/29/21 05:28 POC ABG HCO3 28.7 06/23/21 10:50 ABG O2 Saturation 97.5 (0-100) 06/23/21 10:50 PT/INR, D-dimer PT 14.5 Sec. (12.2-14.9) 06/16/21 18:51 INR 1.08 (0.87-1.13) 06/16/21 18:51 D-Dimer > 05023 ng/mlDDU (0-234) H 05/25/21 09:21 Abnormal lab findings: Abnormal Labs 05/25/21 05/25/21 05/25/21 09:07 09:21 09:21 WBC 17.1 H RBC Hgb Hct MCV 106 H MCH 33 H MCHC RDW 15.6 H [place] % (Auto) [place] # (Auto) Seg Neutrophils % Seg Neuts % (Manual) Lymphocytes % (Manual) Monocytes % (Manual) Seg Neutrophils # Seg Neutrophils # Man 10.1 H Lymphocytes # (Manual) 5.6 H Monocytes # (Manual) PT 15.0 H APTT 44.3 H D-Dimer > 28177 H Heparin Anti-Xa Level ABG pH 7.116 L POC ABG pCO2 POC ABG pO2 ABG pO2 ABG Hemoglobin ABG Oxyhemoglobin 93.7 L ABG Sodium ABG Potassium ABG Chloride ABG Glucose 395 H Carboxyhemoglobin Sodium Potassium Chloride Carbon Dioxide BUN Creatinine Glucose POC Glucose Lactic Acid Calcium Phosphorus Magnesium Ferritin AST ALT Alkaline Phosphatase Lactate Dehydrogenase Troponin T C-Reactive Protein Total Protein Albumin HDL Cholesterol Arterial Blood Glucose 395 H Arterial Blood Ionized Calcium 4.4 L Urine WBC (Auto) Urine Creatinine 05/25/21 05/25/21 05/25/21 09:21 09:21 09:21 WBC RBC Hgb Hct MCV MCH MCHC RDW [place] % (Auto) [place] # (Auto) Seg Neutrophils % Seg Neuts % (Manual) Lymphocytes % (Manual) Monocytes % (Manual) Seg Neutrophils # Seg Neutrophils # Man Lymphocytes # (Manual) Monocytes # (Manual) PT APTT D-Dimer Heparin Anti-Xa Level ABG pH POC ABG pCO2 POC ABG pO2 ABG pO2 ABG Hemoglobin ABG Oxyhemoglobin ABG Sodium ABG Potassium ABG Chloride ABG Glucose Carboxyhemoglobin Sodium Potassium Chloride Carbon Dioxide 10 L BUN Creatinine Glucose 423 H 424 H POC Glucose Lactic Acid Calcium 8.2 L Phosphorus Magnesium Ferritin 321.6 H AST 162 H ALT 119 H Alkaline Phosphatase Lactate Dehydrogenase 445 H Troponin T C-Reactive Protein Total Protein 5.6 L Albumin 3.2 L HDL Cholesterol Arterial Blood Glucose Arterial Blood Ionized Calcium Urine WBC (Auto) Urine Creatinine 05/25/21 05/25/21 05/25/21 09:35 10:42 11:12 WBC RBC Hgb Hct MCV MCH MCHC RDW [place] % (Auto) [place] # (Auto) Seg Neutrophils % Seg Neuts % (Manual) Lymphocytes % (Manual) Monocytes % (Manual) Seg Neutrophils # Seg Neutrophils # Man Lymphocytes # (Manual) Monocytes # (Manual) PT APTT D-Dimer Heparin Anti-Xa Level ABG pH POC ABG pCO2 POC ABG pO2 ABG pO2 ABG Hemoglobin ABG Oxyhemoglobin ABG Sodium ABG Potassium ABG Chloride ABG Glucose Carboxyhemoglobin Sodium Potassium Chloride Carbon Dioxide BUN Creatinine Glucose POC Glucose Lactic Acid 16.70 H* 7.70 H* Calcium Phosphorus Magnesium Ferritin AST ALT Alkaline Phosphatase Lactate Dehydrogenase Troponin T C-Reactive Protein Total Protein Albumin HDL Cholesterol Arterial Blood Glucose Arterial Blood Ionized Calcium Urine WBC (Auto) 11.0 H Urine Creatinine 05/25/21 05/25/21 05/25/21 14:07 15:19 19:04 WBC RBC Hgb Hct MCV MCH MCHC RDW [place] % (Auto) [place] # (Auto) Seg Neutrophils % Seg Neuts % (Manual) Lymphocytes % (Manual) Monocytes % (Manual) Seg Neutrophils # Seg Neutrophils # Man Lymphocytes # (Manual) Monocytes # (Manual) PT APTT D-Dimer Heparin Anti-Xa Level ABG pH POC ABG pCO2 POC ABG pO2 172.2 H ABG pO2 ABG Hemoglobin ABG Oxyhemoglobin 98.7 H ABG Sodium 135.7 L ABG Potassium ABG Chloride ABG Glucose 255 H Carboxyhemoglobin 0.3 L Sodium Potassium Chloride Carbon Dioxide BUN Creatinine Glucose POC Glucose Lactic Acid 3.90 H* Calcium Phosphorus Magnesium Ferritin AST ALT Alkaline Phosphatase Lactate Dehydrogenase Troponin T 0.226 H* D C-Reactive Protein Total Protein Albumin HDL Cholesterol 64 H Arterial Blood Glucose 255 H Arterial Blood Ionized Calcium 3.8 L Urine WBC (Auto) Urine Creatinine 05/25/21 05/25/21 05/26/21 21:16 21:16 04:00 WBC RBC Hgb Hct MCV MCH MCHC RDW [place] % (Auto) [place] # (Auto) Seg Neutrophils % Seg Neuts % (Manual) Lymphocytes % (Manual) Monocytes % (Manual) Seg Neutrophils # Seg Neutrophils # Man Lymphocytes # (Manual) Monocytes # (Manual) PT APTT D-Dimer Heparin Anti-Xa Level 1.19 H ABG pH 7.547 H POC ABG pCO2 POC ABG pO2 ABG pO2 ABG Hemoglobin 11.9 L ABG Oxyhemoglobin ABG Sodium 133.2 L ABG Potassium 3.1 L ABG Chloride ABG Glucose 243 H Carboxyhemoglobin 0.3 L Sodium Potassium Chloride Carbon Dioxide BUN Creatinine Glucose POC Glucose Lactic Acid 2.50 H* Calcium Phosphorus Magnesium Ferritin AST ALT Alkaline Phosphatase Lactate Dehydrogenase Troponin T C-Reactive Protein Total Protein Albumin HDL Cholesterol Arterial Blood Glucose 243 H Arterial Blood Ionized Calcium Urine WBC (Auto) Urine Creatinine 05/26/21 05/26/21 05/26/21 05:49 05:49 17:33 WBC RBC Hgb Hct MCV MCH MCHC RDW [place] % (Auto) [place] # (Auto) Seg Neutrophils % Seg Neuts % (Manual) Lymphocytes % (Manual) Monocytes % (Manual) Seg Neutrophils # Seg Neutrophils # Man Lymphocytes # (Manual) Monocytes # (Manual) PT APTT D-Dimer Heparin Anti-Xa Level ABG pH POC ABG pCO2 POC ABG pO2 ABG pO2 ABG Hemoglobin ABG Oxyhemoglobin ABG Sodium ABG Potassium ABG Chloride ABG Glucose Carboxyhemoglobin Sodium Potassium Chloride Carbon Dioxide BUN Creatinine Glucose 226 H POC Glucose 156 H Lactic Acid 2.30 H* Calcium 7.2 L Phosphorus Magnesium Ferritin AST 111 H ALT 97 H Alkaline Phosphatase Lactate Dehydrogenase Troponin T C-Reactive Protein Total Protein 5.4 L Albumin 3.3 L HDL Cholesterol Arterial Blood Glucose Arterial Blood Ionized Calcium Urine WBC (Auto) Urine Creatinine 05/27/21 05/27/21 05/27/21 02:11 02:11 02:11 WBC 14.3 H RBC 3.27 L Hgb Hct MCV 99 H MCH 33 H MCHC RDW 15.3 H [place] % (Auto) [place] # (Auto) 1.0 H Seg Neutrophils % Seg Neuts % (Manual) Lymphocytes % (Manual) Monocytes % (Manual) Seg Neutrophils # 10.0 H Seg Neutrophils # Man Lymphocytes # (Manual) Monocytes # (Manual) PT APTT D-Dimer Heparin Anti-Xa Level 0.80 H ABG pH POC ABG pCO2 POC ABG pO2 ABG pO2 ABG Hemoglobin ABG Oxyhemoglobin ABG Sodium ABG Potassium ABG Chloride ABG Glucose Carboxyhemoglobin Sodium Potassium 2.9 L* D Chloride Carbon Dioxide 31 H BUN 6 L Creatinine Glucose 215 H POC Glucose Lactic Acid Calcium 8.1 L Phosphorus Magnesium Ferritin AST ALT Alkaline Phosphatase Lactate Dehydrogenase Troponin T C-Reactive Protein Total Protein Albumin HDL Cholesterol Arterial Blood Glucose Arterial Blood Ionized Calcium Urine WBC (Auto) Urine Creatinine 05/27/21 05/27/21 05/27/21 11:24 12:49 18:06 WBC RBC Hgb Hct MCV MCH MCHC RDW [place] % (Auto) [place] # (Auto) Seg Neutrophils % Seg Neuts % (Manual) Lymphocytes % (Manual) Monocytes % (Manual) Seg Neutrophils # Seg Neutrophils # Man Lymphocytes # (Manual) Monocytes # (Manual) PT APTT D-Dimer Heparin Anti-Xa Level ABG pH POC ABG pCO2 POC ABG pO2 ABG pO2 ABG Hemoglobin ABG Oxyhemoglobin ABG Sodium ABG Potassium ABG Chloride ABG Glucose Carboxyhemoglobin Sodium Potassium Chloride Carbon Dioxide BUN Creatinine Glucose POC Glucose 151 H 165 H 137 H Lactic Acid Calcium Phosphorus Magnesium Ferritin AST ALT Alkaline Phosphatase Lactate Dehydrogenase Troponin T C-Reactive Protein Total Protein Albumin HDL Cholesterol Arterial Blood Glucose Arterial Blood Ionized Calcium Urine WBC (Auto) Urine Creatinine 05/28/21 05/28/21 05/28/21 04:00 04:00 06:02 WBC 13.5 H RBC 3.05 L Hgb Hct MCV 100 H MCH 34 H MCHC RDW [place] % (Auto) [place] # (Auto) 0.9 H Seg Neutrophils % 78.2 H Seg Neuts % (Manual) Lymphocytes % (Manual) Monocytes % (Manual) Seg Neutrophils # 10.6 H Seg Neutrophils # Man Lymphocytes # (Manual) Monocytes # (Manual) PT APTT D-Dimer Heparin Anti-Xa Level ABG pH 7.507 H POC ABG pCO2 POC ABG pO2 ABG pO2 ABG Hemoglobin 10.6 L ABG Oxyhemoglobin ABG Sodium 129.4 L ABG Potassium ABG Chloride ABG Glucose 243 H Carboxyhemoglobin 0.2 L Sodium 136 L D Potassium Chloride Carbon Dioxide BUN Creatinine Glucose 215 H POC Glucose Lactic Acid Calcium Phosphorus Magnesium Ferritin AST ALT Alkaline Phosphatase Lactate Dehydrogenase Troponin T C-Reactive Protein Total Protein Albumin HDL Cholesterol Arterial Blood Glucose 243 H Arterial Blood Ionized Calcium 4.1 L Urine WBC (Auto) Urine Creatinine 05/28/21 05/28/21 05/29/21 11:27 23:02 04:30 WBC RBC Hgb 9.3 L Hct 26.7 L MCV MCH MCHC RDW [place] % (Auto) [place] # (Auto) Seg Neutrophils % Seg Neuts % (Manual) Lymphocytes % (Manual) Monocytes % (Manual) Seg Neutrophils # Seg Neutrophils # Man Lymphocytes # (Manual) Monocytes # (Manual) PT APTT D-Dimer Heparin Anti-Xa Level ABG pH POC ABG pCO2 POC ABG pO2 ABG pO2 ABG Hemoglobin ABG Oxyhemoglobin ABG Sodium ABG Potassium ABG Chloride ABG Glucose Carboxyhemoglobin Sodium Potassium Chloride Carbon Dioxide BUN Creatinine Glucose POC Glucose 220 H 212 H Lactic Acid Calcium Phosphorus Magnesium Ferritin AST ALT Alkaline Phosphatase Lactate Dehydrogenase Troponin T C-Reactive Protein Total Protein Albumin HDL Cholesterol Arterial Blood Glucose Arterial Blood Ionized Calcium Urine WBC (Auto) Urine Creatinine 05/29/21 05/29/21 05/29/21 05:02 05:28 12:55 WBC RBC Hgb Hct MCV MCH MCHC RDW [place] % (Auto) [place] # (Auto) Seg Neutrophils % Seg Neuts % (Manual) Lymphocytes % (Manual) Monocytes % (Manual) Seg Neutrophils # Seg Neutrophils # Man Lymphocytes # (Manual) Monocytes # (Manual) PT APTT D-Dimer Heparin Anti-Xa Level ABG pH 7.516 H POC ABG pCO2 POC ABG pO2 ABG pO2 96.2 H ABG Hemoglobin 7.5 L ABG Oxyhemoglobin ABG Sodium ABG Potassium ABG Chloride ABG Glucose Carboxyhemoglobin Sodium Potassium Chloride Carbon Dioxide BUN Creatinine Glucose POC Glucose 197 H 251 H Lactic Acid Calcium Phosphorus Magnesium Ferritin AST ALT Alkaline Phosphatase Lactate Dehydrogenase Troponin T C-Reactive Protein Total Protein Albumin HDL Cholesterol Arterial Blood Glucose Arterial Blood Ionized Calcium Urine WBC (Auto) Urine Creatinine 05/29/21 05/29/21 05/30/21 18:23 23:31 04:10 WBC RBC Hgb Hct MCV MCH MCHC RDW [place] % (Auto) [place] # (Auto) Seg Neutrophils % Seg Neuts % (Manual) Lymphocytes % (Manual) Monocytes % (Manual) Seg Neutrophils # Seg Neutrophils # Man Lymphocytes # (Manual) Monocytes # (Manual) PT APTT D-Dimer Heparin Anti-Xa Level ABG pH 7.532 H POC ABG pCO2 30.0 L POC ABG pO2 78.5 L ABG pO2 ABG Hemoglobin 11.3 L ABG Oxyhemoglobin ABG Sodium 126.7 L ABG Potassium ABG Chloride 94.0 L ABG Glucose 270 H Carboxyhemoglobin 0.4 L Sodium Potassium Chloride Carbon Dioxide BUN Creatinine Glucose POC Glucose 236 H 252 H Lactic Acid Calcium Phosphorus Magnesium Ferritin AST ALT Alkaline Phosphatase Lactate Dehydrogenase Troponin T C-Reactive Protein Total Protein Albumin HDL Cholesterol Arterial Blood Glucose 270 H Arterial Blood Ionized Calcium 4.4 L Urine WBC (Auto) Urine Creatinine 05/30/21 05/30/21 05/30/21 05:06 06:23 11:15 WBC RBC Hgb Hct MCV MCH MCHC RDW [place] % (Auto) [place] # (Auto) Seg Neutrophils % Seg Neuts % (Manual) Lymphocytes % (Manual) Monocytes % (Manual) Seg Neutrophils # Seg Neutrophils # Man Lymphocytes # (Manual) Monocytes # (Manual) PT APTT D-Dimer Heparin Anti-Xa Level ABG pH POC ABG pCO2 POC ABG pO2 ABG pO2 ABG Hemoglobin ABG Oxyhemoglobin ABG Sodium ABG Potassium ABG Chloride ABG Glucose Carboxyhemoglobin Sodium 126 L D Potassium Chloride 91.9 L Carbon Dioxide 20 L D BUN Creatinine 0.4 L Glucose 274 H POC Glucose 242 H 346 H Lactic Acid Calcium Phosphorus Magnesium Ferritin AST ALT Alkaline Phosphatase Lactate Dehydrogenase Troponin T C-Reactive Protein Total Protein Albumin HDL Cholesterol Arterial Blood Glucose Arterial Blood Ionized Calcium Urine WBC (Auto) Urine Creatinine 05/30/21 05/30/21 05/30/21 11:19 11:19 11:19 WBC 18.9 H RBC 3.36 L Hgb Hct MCV 102 H MCH 33 H MCHC RDW 15.5 H [place] % (Auto) [place] # (Auto) Seg Neutrophils % Seg Neuts % (Manual) Lymphocytes % (Manual) Monocytes % (Manual) Seg Neutrophils # Seg Neutrophils # Man Lymphocytes # (Manual) Monocytes # (Manual) PT APTT D-Dimer Heparin Anti-Xa Level < 0.10 L ABG pH POC ABG pCO2 POC ABG pO2 ABG pO2 ABG Hemoglobin ABG Oxyhemoglobin ABG Sodium ABG Potassium ABG Chloride ABG Glucose Carboxyhemoglobin Sodium 124 L Potassium Chloride Carbon Dioxide BUN Creatinine Glucose POC Glucose Lactic Acid Calcium Phosphorus Magnesium Ferritin AST ALT Alkaline Phosphatase Lactate Dehydrogenase Troponin T C-Reactive Protein Total Protein Albumin HDL Cholesterol Arterial Blood Glucose Arterial Blood Ionized Calcium Urine WBC (Auto) Urine Creatinine 05/30/21 05/30/21 05/31/21 17:02 23:27 03:37 WBC RBC Hgb Hct MCV MCH MCHC RDW [place] % (Auto) [place] # (Auto) Seg Neutrophils % Seg Neuts % (Manual) Lymphocytes % (Manual) Monocytes % (Manual) Seg Neutrophils # Seg Neutrophils # Man Lymphocytes # (Manual) Monocytes # (Manual) PT APTT D-Dimer Heparin Anti-Xa Level ABG pH POC ABG pCO2 POC ABG pO2 ABG pO2 ABG Hemoglobin 11.6 L ABG Oxyhemoglobin ABG Sodium 130.0 L ABG Potassium ABG Chloride 95.0 L ABG Glucose 292 H Carboxyhemoglobin Sodium Potassium Chloride Carbon Dioxide BUN Creatinine Glucose POC Glucose 270 H 237 H Lactic Acid Calcium Phosphorus Magnesium Ferritin AST ALT Alkaline Phosphatase Lactate Dehydrogenase Troponin T C-Reactive Protein Total Protein Albumin HDL Cholesterol Arterial Blood Glucose 292 H Arterial Blood Ionized Calcium Urine WBC (Auto) Urine Creatinine 05/31/21 05/31/21 05/31/21 04:00 04:00 05:20 WBC 20.9 H RBC 3.13 L Hgb Hct MCV 99 H MCH 34 H MCHC RDW [place] % (Auto) [place] # (Auto) Seg Neutrophils % Seg Neuts % (Manual) 81.0 H Lymphocytes % (Manual) 8.0 L Monocytes % (Manual) 9.0 H Seg Neutrophils # Seg Neutrophils # Man 16.9 H Lymphocytes # (Manual) Monocytes # (Manual) 1.9 H PT APTT D-Dimer Heparin Anti-Xa Level ABG pH POC ABG pCO2 POC ABG pO2 ABG pO2 ABG Hemoglobin ABG Oxyhemoglobin ABG Sodium ABG Potassium ABG Chloride ABG Glucose Carboxyhemoglobin Sodium 133 L D Potassium Chloride 95.4 L Carbon Dioxide 21 L BUN 30 H Creatinine 0.5 L Glucose 305 H POC Glucose 269 H Lactic Acid Calcium Phosphorus Magnesium Ferritin AST ALT Alkaline Phosphatase Lactate Dehydrogenase Troponin T C-Reactive Protein Total Protein Albumin HDL Cholesterol Arterial Blood Glucose Arterial Blood Ionized Calcium Urine WBC (Auto) Urine Creatinine 05/31/21 05/31/21 05/31/21 11:40 18:16 23:25 WBC RBC Hgb Hct MCV MCH MCHC RDW [place] % (Auto) [place] # (Auto) Seg Neutrophils % Seg Neuts % (Manual) Lymphocytes % (Manual) Monocytes % (Manual) Seg Neutrophils # Seg Neutrophils # Man Lymphocytes # (Manual) Monocytes # (Manual) PT APTT D-Dimer Heparin Anti-Xa Level ABG pH POC ABG pCO2 POC ABG pO2 ABG pO2 ABG Hemoglobin ABG Oxyhemoglobin ABG Sodium ABG Potassium ABG Chloride ABG Glucose Carboxyhemoglobin Sodium Potassium Chloride Carbon Dioxide BUN Creatinine Glucose POC Glucose 364 H 250 H 231 H Lactic Acid Calcium Phosphorus Magnesium Ferritin AST ALT Alkaline Phosphatase Lactate Dehydrogenase Troponin T C-Reactive Protein Total Protein Albumin HDL Cholesterol Arterial Blood Glucose Arterial Blood Ionized Calcium Urine WBC (Auto) Urine Creatinine 06/01/21 06/01/21 06/01/21 04:03 04:58 04:58 WBC 20.7 H RBC 3.20 L Hgb Hct MCV 99 H MCH 34 H MCHC RDW [place] % (Auto) [place] # (Auto) Seg Neutrophils % Seg Neuts % (Manual) 82.0 H Lymphocytes % (Manual) 9.0 L Monocytes % (Manual) Seg Neutrophils # Seg Neutrophils # Man 17.0 H Lymphocytes # (Manual) Monocytes # (Manual) 1.4 H PT APTT D-Dimer Heparin Anti-Xa Level 1.18 H ABG pH 7.520 H POC ABG pCO2 POC ABG pO2 66.0 L ABG pO2 ABG Hemoglobin ABG Oxyhemoglobin 92.5 L ABG Sodium 133.6 L ABG Potassium ABG Chloride ABG Glucose 250 H Carboxyhemoglobin Sodium Potassium Chloride Carbon Dioxide BUN Creatinine Glucose POC Glucose Lactic Acid Calcium Phosphorus Magnesium Ferritin AST ALT Alkaline Phosphatase Lactate Dehydrogenase Troponin T C-Reactive Protein Total Protein Albumin HDL Cholesterol Arterial Blood Glucose 250 H Arterial Blood Ionized Calcium 4.4 L Urine WBC (Auto) Urine Creatinine 06/01/21 06/01/21 06/01/21 04:58 05:29 11:39 WBC RBC Hgb Hct MCV MCH MCHC RDW [place] % (Auto) [place] # (Auto) Seg Neutrophils % Seg Neuts % (Manual) Lymphocytes % (Manual) Monocytes % (Manual) Seg Neutrophils # Seg Neutrophils # Man Lymphocytes # (Manual) Monocytes # (Manual) PT APTT D-Dimer Heparin Anti-Xa Level ABG pH POC ABG pCO2 POC ABG pO2 ABG pO2 ABG Hemoglobin ABG Oxyhemoglobin ABG Sodium ABG Potassium ABG Chloride ABG Glucose Carboxyhemoglobin Sodium 131 L Potassium Chloride 95.7 L Carbon Dioxide BUN 30 H Creatinine 0.5 L Glucose 241 H POC Glucose 215 H 299 H Lactic Acid Calcium Phosphorus Magnesium Ferritin AST ALT Alkaline Phosphatase Lactate Dehydrogenase Troponin T C-Reactive Protein Total Protein Albumin HDL Cholesterol Arterial Blood Glucose Arterial Blood Ionized Calcium Urine WBC (Auto) Urine Creatinine 06/01/21 06/02/21 06/02/21 18:14 00:12 02:25 WBC 17.4 H RBC 3.09 L Hgb Hct MCV 101 H MCH 34 H MCHC RDW 15.5 H [place] % (Auto) [place] # (Auto) Seg Neutrophils % Seg Neuts % (Manual) Lymphocytes % (Manual) Monocytes % (Manual) Seg Neutrophils # Seg Neutrophils # Man Lymphocytes # (Manual) Monocytes # (Manual) PT APTT D-Dimer Heparin Anti-Xa Level ABG pH POC ABG pCO2 POC ABG pO2 ABG pO2 ABG Hemoglobin ABG Oxyhemoglobin ABG Sodium ABG Potassium ABG Chloride ABG Glucose Carboxyhemoglobin Sodium Potassium Chloride Carbon Dioxide BUN Creatinine Glucose POC Glucose 215 H 175 H Lactic Acid Calcium Phosphorus Magnesium Ferritin AST ALT Alkaline Phosphatase Lactate Dehydrogenase Troponin T C-Reactive Protein Total Protein Albumin HDL Cholesterol Arterial Blood Glucose Arterial Blood Ionized Calcium Urine WBC (Auto) Urine Creatinine 06/02/21 06/02/21 06/02/21 02:25 04:13 04:58 WBC RBC Hgb Hct MCV MCH MCHC RDW [place] % (Auto) [place] # (Auto) Seg Neutrophils % Seg Neuts % (Manual) Lymphocytes % (Manual) Monocytes % (Manual) Seg Neutrophils # Seg Neutrophils # Man Lymphocytes # (Manual) Monocytes # (Manual) PT APTT D-Dimer Heparin Anti-Xa Level ABG pH 7.481 H POC ABG pCO2 POC ABG pO2 80.0 L ABG pO2 ABG Hemoglobin 11.1 L ABG Oxyhemoglobin ABG Sodium 131.9 L ABG Potassium ABG Chloride ABG Glucose 231 H Carboxyhemoglobin 0.2 L Sodium 134 L Potassium Chloride 95.8 L Carbon Dioxide BUN 31 H Creatinine 0.5 L Glucose 168 H POC Glucose 230 H Lactic Acid Calcium Phosphorus Magnesium Ferritin AST ALT Alkaline Phosphatase Lactate Dehydrogenase Troponin T C-Reactive Protein Total Protein Albumin HDL Cholesterol Arterial Blood Glucose 231 H Arterial Blood Ionized Calcium Urine WBC (Auto) Urine Creatinine 06/02/21 06/02/21 06/02/21 11:27 17:47 23:53 WBC RBC Hgb Hct MCV MCH MCHC RDW [place] % (Auto) [place] # (Auto) Seg Neutrophils % Seg Neuts % (Manual) Lymphocytes % (Manual) Monocytes % (Manual) Seg Neutrophils # Seg Neutrophils # Man Lymphocytes # (Manual) Monocytes # (Manual) PT APTT D-Dimer Heparin Anti-Xa Level 0.80 H ABG pH POC ABG pCO2 POC ABG pO2 ABG pO2 ABG Hemoglobin ABG Oxyhemoglobin ABG Sodium ABG Potassium ABG Chloride ABG Glucose Carboxyhemoglobin Sodium Potassium Chloride Carbon Dioxide BUN Creatinine Glucose POC Glucose 259 H 297 H Lactic Acid Calcium Phosphorus Magnesium Ferritin AST ALT Alkaline Phosphatase Lactate Dehydrogenase Troponin T C-Reactive Protein Total Protein Albumin HDL Cholesterol Arterial Blood Glucose Arterial Blood Ionized Calcium Urine WBC (Auto) Urine Creatinine 06/03/21 06/03/21 06/03/21 00:05 05:23 09:10 WBC RBC Hgb Hct MCV MCH MCHC RDW [place] % (Auto) [place] # (Auto) Seg Neutrophils % Seg Neuts % (Manual) Lymphocytes % (Manual) Monocytes % (Manual) Seg Neutrophils # Seg Neutrophils # Man Lymphocytes # (Manual) Monocytes # (Manual) PT APTT D-Dimer Heparin Anti-Xa Level 0.84 H ABG pH POC ABG pCO2 POC ABG pO2 ABG pO2 ABG Hemoglobin ABG Oxyhemoglobin ABG Sodium ABG Potassium ABG Chloride ABG Glucose Carboxyhemoglobin Sodium Potassium Chloride Carbon Dioxide BUN Creatinine Glucose POC Glucose 268 H 170 H Lactic Acid Calcium Phosphorus Magnesium Ferritin AST ALT Alkaline Phosphatase Lactate Dehydrogenase Troponin T C-Reactive Protein Total Protein Albumin HDL Cholesterol Arterial Blood Glucose Arterial Blood Ionized Calcium Urine WBC (Auto) Urine Creatinine 06/03/21 06/03/21 06/03/21 12:06 20:22 23:30 WBC RBC Hgb Hct MCV MCH MCHC RDW [place] % (Auto) [place] # (Auto) Seg Neutrophils % Seg Neuts % (Manual) Lymphocytes % (Manual) Monocytes % (Manual) Seg Neutrophils # Seg Neutrophils # Man Lymphocytes # (Manual) Monocytes # (Manual) PT APTT D-Dimer Heparin Anti-Xa Level ABG pH POC ABG pCO2 POC ABG pO2 ABG pO2 ABG Hemoglobin ABG Oxyhemoglobin ABG Sodium ABG Potassium ABG Chloride ABG Glucose Carboxyhemoglobin Sodium Potassium Chloride Carbon Dioxide BUN Creatinine Glucose POC Glucose 275 H 260 H 215 H Lactic Acid Calcium Phosphorus Magnesium Ferritin AST ALT Alkaline Phosphatase Lactate Dehydrogenase Troponin T C-Reactive Protein Total Protein Albumin HDL Cholesterol Arterial Blood Glucose Arterial Blood Ionized Calcium Urine WBC (Auto) Urine Creatinine 06/04/21 06/04/21 06/04/21 05:03 05:57 05:57 WBC 17.8 H RBC 2.83 L Hgb 9.6 L Hct 28.4 L MCV 100 H MCH 34 H MCHC RDW 15.5 H [place] % (Auto) [place] # (Auto) Seg Neutrophils % Seg Neuts % (Manual) 83.0 H Lymphocytes % (Manual) 4.0 L Monocytes % (Manual) Seg Neutrophils # Seg Neutrophils # Man 14.8 H Lymphocytes # (Manual) 0.7 L Monocytes # (Manual) 1.1 H PT APTT D-Dimer Heparin Anti-Xa Level ABG pH POC ABG pCO2 POC ABG pO2 ABG pO2 ABG Hemoglobin ABG Oxyhemoglobin ABG Sodium ABG Potassium ABG Chloride ABG Glucose Carboxyhemoglobin Sodium 135 L Potassium Chloride 96.3 L Carbon Dioxide BUN 51 H Creatinine Glucose 275 H POC Glucose 257 H Lactic Acid Calcium Phosphorus Magnesium Ferritin AST ALT Alkaline Phosphatase Lactate Dehydrogenase Troponin T C-Reactive Protein Total Protein Albumin HDL Cholesterol Arterial Blood Glucose Arterial Blood Ionized Calcium Urine WBC (Auto) Urine Creatinine 06/04/21 06/04/21 06/04/21 09:48 11:08 17:33 WBC RBC Hgb Hct MCV MCH MCHC RDW [place] % (Auto) [place] # (Auto) Seg Neutrophils % Seg Neuts % (Manual) Lymphocytes % (Manual) Monocytes % (Manual) Seg Neutrophils # Seg Neutrophils # Man Lymphocytes # (Manual) Monocytes # (Manual) PT APTT D-Dimer Heparin Anti-Xa Level ABG pH POC ABG pCO2 POC ABG pO2 ABG pO2 ABG Hemoglobin ABG Oxyhemoglobin ABG Sodium ABG Potassium ABG Chloride ABG Glucose Carboxyhemoglobin Sodium Potassium Chloride Carbon Dioxide BUN Creatinine Glucose POC Glucose 198 H 234 H 247 H Lactic Acid Calcium Phosphorus Magnesium Ferritin AST ALT Alkaline Phosphatase Lactate Dehydrogenase Troponin T C-Reactive Protein Total Protein Albumin HDL Cholesterol Arterial Blood Glucose Arterial Blood Ionized Calcium Urine WBC (Auto) Urine Creatinine 09/06/05/21 06/05/21 23:30 05:38 11:24 WBC RBC Hgb Hct MCV MCH MCHC RDW [place] % (Auto) [place] # (Auto) Seg Neutrophils % Seg Neuts % (Manual) Lymphocytes % (Manual) Monocytes % (Manual) Seg Neutrophils # Seg Neutrophils # Man Lymphocytes # (Manual) Monocytes # (Manual) PT APTT D-Dimer Heparin Anti-Xa Level ABG pH POC ABG pCO2 POC ABG pO2 ABG pO2 ABG Hemoglobin ABG Oxyhemoglobin ABG Sodium ABG Potassium ABG Chloride ABG Glucose Carboxyhemoglobin Sodium Potassium Chloride Carbon Dioxide BUN Creatinine Glucose POC Glucose 192 H 192 H 287 H Lactic Acid Calcium Phosphorus Magnesium Ferritin AST ALT Alkaline Phosphatase Lactate Dehydrogenase Troponin T C-Reactive Protein Total Protein Albumin HDL Cholesterol Arterial Blood Glucose Arterial Blood Ionized Calcium Urine WBC (Auto) Urine Creatinine 06/05/21 06/05/21 06/05/21 12:20 12:20 12:20 WBC 16.2 H RBC 2.56 L Hgb 8.8 L Hct 25.2 L MCV 98 H MCH 35 H MCHC 35 H RDW 15.3 H [place] % (Auto) [place] # (Auto) Seg Neutrophils % Seg Neuts % (Manual) Lymphocytes % (Manual) Monocytes % (Manual) Seg Neutrophils # Seg Neutrophils # Man Lymphocytes # (Manual) Monocytes # (Manual) PT APTT 72.2 H* D-Dimer Heparin Anti-Xa Level ABG pH POC ABG pCO2 POC ABG pO2 ABG pO2 ABG Hemoglobin ABG Oxyhemoglobin ABG Sodium ABG Potassium ABG Chloride ABG Glucose Carboxyhemoglobin Sodium 133 L Potassium Chloride 95.3 L Carbon Dioxide BUN 57 H Creatinine Glucose 313 H POC Glucose Lactic Acid Calcium Phosphorus Magnesium Ferritin AST 90 H ALT 79 H Alkaline Phosphatase 262 H Lactate Dehydrogenase Troponin T C-Reactive Protein Total Protein Albumin 2.7 L HDL Cholesterol Arterial Blood Glucose Arterial Blood Ionized Calcium Urine WBC (Auto) Urine Creatinine 06/05/21 06/05/21 06/05/21 17:50 22:57 23:36 WBC RBC Hgb Hct MCV MCH MCHC RDW [place] % (Auto) [place] # (Auto) Seg Neutrophils % Seg Neuts % (Manual) Lymphocytes % (Manual) Monocytes % (Manual) Seg Neutrophils # Seg Neutrophils # Man Lymphocytes # (Manual) Monocytes # (Manual) PT APTT D-Dimer Heparin Anti-Xa Level 0.28 L ABG pH POC ABG pCO2 POC ABG pO2 ABG pO2 ABG Hemoglobin ABG Oxyhemoglobin ABG Sodium ABG Potassium ABG Chloride ABG Glucose Carboxyhemoglobin Sodium Potassium Chloride Carbon Dioxide BUN Creatinine Glucose POC Glucose 275 H 223 H Lactic Acid Calcium Phosphorus Magnesium Ferritin AST ALT Alkaline Phosphatase Lactate Dehydrogenase Troponin T C-Reactive Protein Total Protein Albumin HDL Cholesterol Arterial Blood Glucose Arterial Blood Ionized Calcium Urine WBC (Auto) Urine Creatinine 06/06/21 06/06/21 06/06/21 04:57 04:57 05:02 WBC 15.7 H RBC 2.77 L Hgb 9.4 L Hct 27.2 L MCV 98 H MCH 34 H MCHC RDW 15.4 H [place] % (Auto) [place] # (Auto) Seg Neutrophils % Seg Neuts % (Manual) Lymphocytes % (Manual) Monocytes % (Manual) Seg Neutrophils # Seg Neutrophils # Man Lymphocytes # (Manual) Monocytes # (Manual) PT APTT D-Dimer Heparin Anti-Xa Level ABG pH POC ABG pCO2 POC ABG pO2 ABG pO2 ABG Hemoglobin ABG Oxyhemoglobin ABG Sodium ABG Potassium ABG Chloride ABG Glucose Carboxyhemoglobin Sodium Potassium 5.7 H Chloride Carbon Dioxide BUN 57 H Creatinine Glucose 245 H POC Glucose 217 H Lactic Acid Calcium Phosphorus Magnesium Ferritin AST 99 H ALT 136 H Alkaline Phosphatase 312 H Lactate Dehydrogenase Troponin T C-Reactive Protein Total Protein 6.1 L Albumin 3.1 L HDL Cholesterol Arterial Blood Glucose Arterial Blood Ionized Calcium Urine WBC (Auto) Urine Creatinine 06/06/21 06/06/21 06/06/21 11:37 17:34 18:09 WBC RBC Hgb Hct MCV MCH MCHC RDW [place] % (Auto) [place] # (Auto) Seg Neutrophils % Seg Neuts % (Manual) Lymphocytes % (Manual) Monocytes % (Manual) Seg Neutrophils # Seg Neutrophils # Man Lymphocytes # (Manual) Monocytes # (Manual) PT APTT D-Dimer Heparin Anti-Xa Level ABG pH POC ABG pCO2 POC ABG pO2 ABG pO2 ABG Hemoglobin ABG Oxyhemoglobin ABG Sodium ABG Potassium ABG Chloride ABG Glucose Carboxyhemoglobin Sodium Potassium 5.2 H Chloride Carbon Dioxide BUN 48 H Creatinine Glucose 245 H POC Glucose 251 H 217 H Lactic Acid Calcium Phosphorus Magnesium Ferritin AST ALT Alkaline Phosphatase Lactate Dehydrogenase Troponin T C-Reactive Protein Total Protein Albumin HDL Cholesterol Arterial Blood Glucose Arterial Blood Ionized Calcium Urine WBC (Auto) Urine Creatinine 06/06/21 06/07/21 06/07/21 23:53 04:45 04:45 WBC 21.5 H RBC 2.71 L Hgb 9.0 L Hct 26.9 L MCV 99 H MCH 33 H MCHC RDW 15.3 H [place] % (Auto) [place] # (Auto) Seg Neutrophils % Seg Neuts % (Manual) Lymphocytes % (Manual) Monocytes % (Manual) Seg Neutrophils # Seg Neutrophils # Man Lymphocytes # (Manual) Monocytes # (Manual) PT APTT D-Dimer Heparin Anti-Xa Level 0.10 L ABG pH POC ABG pCO2 POC ABG pO2 ABG pO2 ABG Hemoglobin ABG Oxyhemoglobin ABG Sodium ABG Potassium ABG Chloride ABG Glucose Carboxyhemoglobin Sodium Potassium Chloride Carbon Dioxide BUN Creatinine Glucose POC Glucose 224 H Lactic Acid Calcium Phosphorus Magnesium Ferritin AST ALT Alkaline Phosphatase Lactate Dehydrogenase Troponin T C-Reactive Protein Total Protein Albumin HDL Cholesterol Arterial Blood Glucose Arterial Blood Ionized Calcium Urine WBC (Auto) Urine Creatinine 06/07/21 06/07/21 06/07/21 04:45 05:11 11:50 WBC RBC Hgb Hct MCV MCH MCHC RDW [place] % (Auto) [place] # (Auto) Seg Neutrophils % Seg Neuts % (Manual) Lymphocytes % (Manual) Monocytes % (Manual) Seg Neutrophils # Seg Neutrophils # Man Lymphocytes # (Manual) Monocytes # (Manual) PT APTT D-Dimer Heparin Anti-Xa Level ABG pH POC ABG pCO2 POC ABG pO2 ABG pO2 ABG Hemoglobin ABG Oxyhemoglobin ABG Sodium ABG Potassium ABG Chloride ABG Glucose Carboxyhemoglobin Sodium Potassium 5.4 H Chloride Carbon Dioxide BUN 55 H Creatinine Glucose 178 H POC Glucose 156 H 118 H Lactic Acid Calcium Phosphorus Magnesium Ferritin AST ALT Alkaline Phosphatase Lactate Dehydrogenase Troponin T C-Reactive Protein Total Protein Albumin HDL Cholesterol Arterial Blood Glucose Arterial Blood Ionized Calcium Urine WBC (Auto) Urine Creatinine 06/07/21 06/07/21 06/07/21 14:52 17:45 20:43 WBC RBC Hgb Hct MCV MCH MCHC RDW [place] % (Auto) [place] # (Auto) Seg Neutrophils % Seg Neuts % (Manual) Lymphocytes % (Manual) Monocytes % (Manual) Seg Neutrophils # Seg Neutrophils # Man Lymphocytes # (Manual) Monocytes # (Manual) PT APTT D-Dimer Heparin Anti-Xa Level 0.73 H ABG pH POC ABG pCO2 POC ABG pO2 ABG pO2 ABG Hemoglobin ABG Oxyhemoglobin ABG Sodium ABG Potassium ABG Chloride ABG Glucose Carboxyhemoglobin Sodium Potassium Chloride Carbon Dioxide BUN Creatinine Glucose POC Glucose 164 H Lactic Acid Calcium Phosphorus Magnesium Ferritin AST ALT Alkaline Phosphatase Lactate Dehydrogenase Troponin T C-Reactive Protein 28.90 H Total Protein Albumin HDL Cholesterol Arterial Blood Glucose Arterial Blood Ionized Calcium Urine WBC (Auto) Urine Creatinine 06/07/21 06/08/21 06/08/21 23:15 04:25 04:25 WBC 15.8 H RBC 2.58 L Hgb 8.6 L Hct 25.7 L MCV 100 H MCH 33 H MCHC RDW [place] % (Auto) [place] # (Auto) Seg Neutrophils % Seg Neuts % (Manual) 76.0 H Lymphocytes % (Manual) 6.0 L Monocytes % (Manual) 8.0 H Seg Neutrophils # Seg Neutrophils # Man 12.0 H Lymphocytes # (Manual) 0.9 L Monocytes # (Manual) 1.3 H PT APTT D-Dimer Heparin Anti-Xa Level ABG pH POC ABG pCO2 POC ABG pO2 ABG pO2 ABG Hemoglobin ABG Oxyhemoglobin ABG Sodium ABG Potassium ABG Chloride ABG Glucose Carboxyhemoglobin Sodium Potassium Chloride Carbon Dioxide BUN 65 H Creatinine Glucose 205 H POC Glucose 236 H Lactic Acid Calcium Phosphorus Magnesium Ferritin AST ALT Alkaline Phosphatase Lactate Dehydrogenase Troponin T C-Reactive Protein Total Protein Albumin HDL Cholesterol Arterial Blood Glucose Arterial Blood Ionized Calcium Urine WBC (Auto) Urine Creatinine 06/08/21 06/08/21 06/08/21 05:36 11:18 17:41 WBC RBC Hgb Hct MCV MCH MCHC RDW [place] % (Auto) [place] # (Auto) Seg Neutrophils % Seg Neuts % (Manual) Lymphocytes % (Manual) Monocytes % (Manual) Seg Neutrophils # Seg Neutrophils # Man Lymphocytes # (Manual) Monocytes # (Manual) PT APTT D-Dimer Heparin Anti-Xa Level ABG pH POC ABG pCO2 POC ABG pO2 ABG pO2 ABG Hemoglobin ABG Oxyhemoglobin ABG Sodium ABG Potassium ABG Chloride ABG Glucose Carboxyhemoglobin Sodium Potassium Chloride Carbon Dioxide BUN Creatinine Glucose POC Glucose 185 H 203 H 173 H Lactic Acid Calcium Phosphorus Magnesium Ferritin AST ALT Alkaline Phosphatase Lactate Dehydrogenase Troponin T C-Reactive Protein Total Protein Albumin HDL Cholesterol Arterial Blood Glucose Arterial Blood Ionized Calcium Urine WBC (Auto) Urine Creatinine 06/08/21 06/09/21 06/09/21 23:34 05:16 05:20 WBC 15.0 H RBC 2.54 L Hgb 8.5 L Hct 25.2 L MCV 99 H MCH 33 H MCHC RDW [place] % (Auto) [place] # (Auto) Seg Neutrophils % Seg Neuts % (Manual) Lymphocytes % (Manual) Monocytes % (Manual) Seg Neutrophils # Seg Neutrophils # Man Lymphocytes # (Manual) Monocytes # (Manual) PT APTT D-Dimer Heparin Anti-Xa Level ABG pH POC ABG pCO2 POC ABG pO2 ABG pO2 ABG Hemoglobin ABG Oxyhemoglobin ABG Sodium ABG Potassium ABG Chloride ABG Glucose Carboxyhemoglobin Sodium Potassium Chloride Carbon Dioxide BUN Creatinine Glucose POC Glucose 200 H 154 H Lactic Acid Calcium Phosphorus Magnesium Ferritin AST ALT Alkaline Phosphatase Lactate Dehydrogenase Troponin T C-Reactive Protein Total Protein Albumin HDL Cholesterol Arterial Blood Glucose Arterial Blood Ionized Calcium Urine WBC (Auto) Urine Creatinine 06/09/21 06/09/21 06/09/21 05:20 11:40 17:09 WBC RBC Hgb Hct MCV MCH MCHC RDW [place] % (Auto) [place] # (Auto) Seg Neutrophils % Seg Neuts % (Manual) Lymphocytes % (Manual) Monocytes % (Manual) Seg Neutrophils # Seg Neutrophils # Man Lymphocytes # (Manual) Monocytes # (Manual) PT APTT D-Dimer Heparin Anti-Xa Level ABG pH POC ABG pCO2 POC ABG pO2 ABG pO2 ABG Hemoglobin ABG Oxyhemoglobin ABG Sodium ABG Potassium ABG Chloride ABG Glucose Carboxyhemoglobin Sodium Potassium 5.2 H Chloride Carbon Dioxide BUN 69 H Creatinine Glucose 163 H POC Glucose 232 H 137 H Lactic Acid Calcium Phosphorus Magnesium Ferritin AST ALT Alkaline Phosphatase Lactate Dehydrogenase Troponin T C-Reactive Protein Total Protein Albumin HDL Cholesterol Arterial Blood Glucose Arterial Blood Ionized Calcium Urine WBC (Auto) Urine Creatinine 06/09/21 06/10/21 06/10/21 23:31 04:42 04:42 WBC 14.5 H RBC 2.41 L Hgb 8.2 L Hct 24.0 L MCV 100 H MCH 34 H MCHC RDW 15.8 H [place] % (Auto) [place] # (Auto) Seg Neutrophils % Seg Neuts % (Manual) Lymphocytes % (Manual) Monocytes % (Manual) Seg Neutrophils # Seg Neutrophils # Man Lymphocytes # (Manual) Monocytes # (Manual) PT APTT D-Dimer Heparin Anti-Xa Level ABG pH POC ABG pCO2 POC ABG pO2 ABG pO2 ABG Hemoglobin ABG Oxyhemoglobin ABG Sodium ABG Potassium ABG Chloride ABG Glucose Carboxyhemoglobin Sodium 146 H D Potassium 3.4 L D Chloride Carbon Dioxide BUN 62 H Creatinine Glucose 174 H POC Glucose 162 H Lactic Acid Calcium Phosphorus Magnesium Ferritin AST ALT Alkaline Phosphatase Lactate Dehydrogenase Troponin T C-Reactive Protein Total Protein Albumin HDL Cholesterol Arterial Blood Glucose Arterial Blood Ionized Calcium Urine WBC (Auto) Urine Creatinine 06/10/21 06/10/21 06/10/21 05:36 11:43 18:24 WBC RBC Hgb Hct MCV MCH MCHC RDW [place] % (Auto) [place] # (Auto) Seg Neutrophils % Seg Neuts % (Manual) Lymphocytes % (Manual) Monocytes % (Manual) Seg Neutrophils # Seg Neutrophils # Man Lymphocytes # (Manual) Monocytes # (Manual) PT APTT D-Dimer Heparin Anti-Xa Level ABG pH POC ABG pCO2 POC ABG pO2 ABG pO2 ABG Hemoglobin ABG Oxyhemoglobin ABG Sodium ABG Potassium ABG Chloride ABG Glucose Carboxyhemoglobin Sodium Potassium Chloride Carbon Dioxide BUN Creatinine Glucose POC Glucose 149 H 183 H 139 H Lactic Acid Calcium Phosphorus Magnesium Ferritin AST ALT Alkaline Phosphatase Lactate Dehydrogenase Troponin T C-Reactive Protein Total Protein Albumin HDL Cholesterol Arterial Blood Glucose Arterial Blood Ionized Calcium Urine WBC (Auto) Urine Creatinine 06/10/21 06/11/21 06/11/21 23:32 04:17 05:22 WBC RBC Hgb Hct MCV MCH MCHC RDW [place] % (Auto) [place] # (Auto) Seg Neutrophils % Seg Neuts % (Manual) Lymphocytes % (Manual) Monocytes % (Manual) Seg Neutrophils # Seg Neutrophils # Man Lymphocytes # (Manual) Monocytes # (Manual) PT APTT D-Dimer Heparin Anti-Xa Level 0.84 H ABG pH POC ABG pCO2 POC ABG pO2 ABG pO2 ABG Hemoglobin ABG Oxyhemoglobin ABG Sodium ABG Potassium ABG Chloride ABG Glucose Carboxyhemoglobin Sodium Potassium Chloride Carbon Dioxide BUN Creatinine Glucose POC Glucose 149 H 138 H Lactic Acid Calcium Phosphorus Magnesium Ferritin AST ALT Alkaline Phosphatase Lactate Dehydrogenase Troponin T C-Reactive Protein Total Protein Albumin HDL Cholesterol Arterial Blood Glucose Arterial Blood Ionized Calcium Urine WBC (Auto) Urine Creatinine 06/11/21 06/11/21 06/12/21 11:26 23:56 04:44 WBC 15.5 H RBC 2.59 L Hgb 8.6 L Hct 25.8 L MCV 100 H MCH 33 H MCHC RDW 15.3 H [place] % (Auto) [place] # (Auto) Seg Neutrophils % Seg Neuts % (Manual) Lymphocytes % (Manual) Monocytes % (Manual) Seg Neutrophils # Seg Neutrophils # Man Lymphocytes # (Manual) Monocytes # (Manual) PT APTT D-Dimer Heparin Anti-Xa Level ABG pH POC ABG pCO2 POC ABG pO2 ABG pO2 ABG Hemoglobin ABG Oxyhemoglobin ABG Sodium ABG Potassium ABG Chloride ABG Glucose Carboxyhemoglobin Sodium Potassium Chloride Carbon Dioxide BUN Creatinine Glucose POC Glucose 198 H 199 H Lactic Acid Calcium Phosphorus Magnesium Ferritin AST ALT Alkaline Phosphatase Lactate Dehydrogenase Troponin T C-Reactive Protein Total Protein Albumin HDL Cholesterol Arterial Blood Glucose Arterial Blood Ionized Calcium Urine WBC (Auto) Urine Creatinine 06/12/21 06/12/21 06/12/21 04:44 04:44 05:29 WBC RBC Hgb Hct MCV MCH MCHC RDW [place] % (Auto) [place] # (Auto) Seg Neutrophils % Seg Neuts % (Manual) Lymphocytes % (Manual) Monocytes % (Manual) Seg Neutrophils # Seg Neutrophils # Man Lymphocytes # (Manual) Monocytes # (Manual) PT APTT D-Dimer Heparin Anti-Xa Level ABG pH POC ABG pCO2 POC ABG pO2 ABG pO2 ABG Hemoglobin ABG Oxyhemoglobin ABG Sodium ABG Potassium ABG Chloride ABG Glucose Carboxyhemoglobin Sodium 148 H Potassium Chloride Carbon Dioxide BUN 49 H 51 H Creatinine Glucose 222 H 223 H POC Glucose 193 H Lactic Acid Calcium Phosphorus Magnesium 3.20 H Ferritin AST 81 H ALT 83 H Alkaline Phosphatase 215 H Lactate Dehydrogenase Troponin T C-Reactive Protein Total Protein Albumin 3.2 L HDL Cholesterol Arterial Blood Glucose Arterial Blood Ionized Calcium Urine WBC (Auto) Urine Creatinine 06/12/21 06/12/21 06/12/21 11:21 17:55 23:23 WBC RBC Hgb Hct MCV MCH MCHC RDW [place] % (Auto) [place] # (Auto) Seg Neutrophils % Seg Neuts % (Manual) Lymphocytes % (Manual) Monocytes % (Manual) Seg Neutrophils # Seg Neutrophils # Man Lymphocytes # (Manual) Monocytes # (Manual) PT APTT D-Dimer Heparin Anti-Xa Level ABG pH POC ABG pCO2 POC ABG pO2 ABG pO2 ABG Hemoglobin ABG Oxyhemoglobin ABG Sodium ABG Potassium ABG Chloride ABG Glucose Carboxyhemoglobin Sodium Potassium Chloride Carbon Dioxide BUN Creatinine Glucose POC Glucose 185 H 210 H 211 H Lactic Acid Calcium Phosphorus Magnesium Ferritin AST ALT Alkaline Phosphatase Lactate Dehydrogenase Troponin T C-Reactive Protein Total Protein Albumin HDL Cholesterol Arterial Blood Glucose Arterial Blood Ionized Calcium Urine WBC (Auto) Urine Creatinine 06/13/21 06/13/21 06/13/21 04:34 04:34 05:17 WBC 17.2 H RBC 2.56 L Hgb 8.6 L Hct 26.1 L MCV 102 H MCH 34 H MCHC RDW [place] % (Auto) [place] # (Auto) Seg Neutrophils % Seg Neuts % (Manual) Lymphocytes % (Manual) Monocytes % (Manual) Seg Neutrophils # Seg Neutrophils # Man Lymphocytes # (Manual) Monocytes # (Manual) PT APTT D-Dimer Heparin Anti-Xa Level ABG pH POC ABG pCO2 POC ABG pO2 ABG pO2 ABG Hemoglobin ABG Oxyhemoglobin ABG Sodium ABG Potassium ABG Chloride ABG Glucose Carboxyhemoglobin Sodium 149 H Potassium 5.1 H Chloride Carbon Dioxide BUN 52 H Creatinine 1.6 H Glucose 231 H POC Glucose 207 H Lactic Acid Calcium Phosphorus Magnesium Ferritin AST 69 H ALT 74 H Alkaline Phosphatase 197 H Lactate Dehydrogenase Troponin T C-Reactive Protein Total Protein Albumin 3.0 L HDL Cholesterol Arterial Blood Glucose Arterial Blood Ionized Calcium Urine WBC (Auto) Urine Creatinine 06/13/21 06/13/21 06/13/21 10:44 11:07 12:07 WBC RBC Hgb Hct MCV MCH MCHC RDW [place] % (Auto) [place] # (Auto) Seg Neutrophils % Seg Neuts % (Manual) Lymphocytes % (Manual) Monocytes % (Manual) Seg Neutrophils # Seg Neutrophils # Man Lymphocytes # (Manual) Monocytes # (Manual) PT APTT D-Dimer Heparin Anti-Xa Level < 0.10 L ABG pH 7.455 H POC ABG pCO2 POC ABG pO2 ABG pO2 ABG Hemoglobin 8.6 L ABG Oxyhemoglobin ABG Sodium ABG Potassium 4.7 H ABG Chloride ABG Glucose 277 H Carboxyhemoglobin Sodium Potassium Chloride Carbon Dioxide BUN Creatinine Glucose POC Glucose 241 H Lactic Acid Calcium Phosphorus Magnesium Ferritin AST ALT Alkaline Phosphatase Lactate Dehydrogenase Troponin T C-Reactive Protein Total Protein Albumin HDL Cholesterol Arterial Blood Glucose 277 H Arterial Blood Ionized Calcium Urine WBC (Auto) Urine Creatinine 06/13/21 06/13/21 06/13/21 17:35 21:13 23:19 WBC RBC Hgb Hct MCV MCH MCHC RDW [place] % (Auto) [place] # (Auto) Seg Neutrophils % Seg Neuts % (Manual) Lymphocytes % (Manual) Monocytes % (Manual) Seg Neutrophils # Seg Neutrophils # Man Lymphocytes # (Manual) Monocytes # (Manual) PT APTT D-Dimer Heparin Anti-Xa Level 0.92 H ABG pH POC ABG pCO2 POC ABG pO2 ABG pO2 ABG Hemoglobin ABG Oxyhemoglobin ABG Sodium ABG Potassium ABG Chloride ABG Glucose Carboxyhemoglobin Sodium Potassium Chloride Carbon Dioxide BUN Creatinine Glucose POC Glucose 233 H 232 H Lactic Acid Calcium Phosphorus Magnesium Ferritin AST ALT Alkaline Phosphatase Lactate Dehydrogenase Troponin T C-Reactive Protein Total Protein Albumin HDL Cholesterol Arterial Blood Glucose Arterial Blood Ionized Calcium Urine WBC (Auto) Urine Creatinine 06/14/21 06/14/21 06/14/21 04:21 04:21 05:36 WBC 15.6 H RBC 2.26 L Hgb 7.6 L Hct 22.9 L MCV 101 H MCH 34 H MCHC RDW 15.3 H [place] % (Auto) [place] # (Auto) Seg Neutrophils % Seg Neuts % (Manual) Lymphocytes % (Manual) Monocytes % (Manual) Seg Neutrophils # Seg Neutrophils # Man Lymphocytes # (Manual) Monocytes # (Manual) PT APTT D-Dimer Heparin Anti-Xa Level ABG pH POC ABG pCO2 POC ABG pO2 ABG pO2 ABG Hemoglobin ABG Oxyhemoglobin ABG Sodium ABG Potassium ABG Chloride ABG Glucose Carboxyhemoglobin Sodium 149 H Potassium Chloride 107.8 H Carbon Dioxide BUN 66 H Creatinine 1.8 H Glucose 192 H POC Glucose 166 H Lactic Acid Calcium Phosphorus Magnesium Ferritin AST ALT Alkaline Phosphatase Lactate Dehydrogenase Troponin T C-Reactive Protein Total Protein Albumin HDL Cholesterol Arterial Blood Glucose Arterial Blood Ionized Calcium Urine WBC (Auto) Urine Creatinine 06/14/21 06/14/21 06/14/21 12:21 17:07 23:14 WBC RBC Hgb Hct MCV MCH MCHC RDW [place] % (Auto) [place] # (Auto) Seg Neutrophils % Seg Neuts % (Manual) Lymphocytes % (Manual) Monocytes % (Manual) Seg Neutrophils # Seg Neutrophils # Man Lymphocytes # (Manual) Monocytes # (Manual) PT APTT D-Dimer Heparin Anti-Xa Level ABG pH POC ABG pCO2 POC ABG pO2 ABG pO2 ABG Hemoglobin ABG Oxyhemoglobin ABG Sodium ABG Potassium ABG Chloride ABG Glucose Carboxyhemoglobin Sodium Potassium Chloride Carbon Dioxide BUN Creatinine Glucose POC Glucose 190 H 172 H 195 H Lactic Acid Calcium Phosphorus Magnesium Ferritin AST ALT Alkaline Phosphatase Lactate Dehydrogenase Troponin T C-Reactive Protein Total Protein Albumin HDL Cholesterol Arterial Blood Glucose Arterial Blood Ionized Calcium Urine WBC (Auto) Urine Creatinine 06/15/21 06/15/21 06/15/21 05:08 05:08 05:47 WBC 15.3 H RBC 2.23 L Hgb 7.3 L Hct 22.5 L MCV 101 H MCH 33 H MCHC RDW [place] % (Auto) [place] # (Auto) Seg Neutrophils % Seg Neuts % (Manual) Lymphocytes % (Manual) Monocytes % (Manual) Seg Neutrophils # Seg Neutrophils # Man Lymphocytes # (Manual) Monocytes # (Manual) PT APTT D-Dimer Heparin Anti-Xa Level ABG pH POC ABG pCO2 POC ABG pO2 ABG pO2 ABG Hemoglobin ABG Oxyhemoglobin ABG Sodium ABG Potassium ABG Chloride ABG Glucose Carboxyhemoglobin Sodium 147 H Potassium Chloride Carbon Dioxide BUN 60 H Creatinine 1.6 H Glucose 158 H POC Glucose 150 H Lactic Acid Calcium 8.2 L Phosphorus 5.90 H Magnesium 3.20 H Ferritin AST ALT Alkaline Phosphatase Lactate Dehydrogenase Troponin T C-Reactive Protein Total Protein Albumin HDL Cholesterol Arterial Blood Glucose Arterial Blood Ionized Calcium Urine WBC (Auto) Urine Creatinine 06/15/21 06/15/21 06/15/21 10:19 11:25 17:47 WBC RBC Hgb Hct MCV MCH MCHC RDW [place] % (Auto) [place] # (Auto) Seg Neutrophils % Seg Neuts % (Manual) Lymphocytes % (Manual) Monocytes % (Manual) Seg Neutrophils # Seg Neutrophils # Man Lymphocytes # (Manual) Monocytes # (Manual) PT APTT D-Dimer Heparin Anti-Xa Level ABG pH 7.471 H POC ABG pCO2 POC ABG pO2 ABG pO2 ABG Hemoglobin ABG Oxyhemoglobin ABG Sodium ABG Potassium ABG Chloride ABG Glucose Carboxyhemoglobin Sodium Potassium Chloride Carbon Dioxide BUN Creatinine Glucose POC Glucose 133 H 201 H Lactic Acid Calcium Phosphorus Magnesium Ferritin AST ALT Alkaline Phosphatase Lactate Dehydrogenase Troponin T C-Reactive Protein Total Protein Albumin HDL Cholesterol Arterial Blood Glucose Arterial Blood Ionized Calcium Urine WBC (Auto) Urine Creatinine 06/15/21 06/15/21 06/16/21 23:43 Unknown 04:31 WBC 13.8 H RBC 2.23 L Hgb 7.5 L Hct 22.4 L MCV 101 H MCH 34 H MCHC RDW [place] % (Auto) [place] # (Auto) Seg Neutrophils % Seg Neuts % (Manual) Lymphocytes % (Manual) Monocytes % (Manual) Seg Neutrophils # Seg Neutrophils # Man Lymphocytes # (Manual) Monocytes # (Manual) PT APTT D-Dimer Heparin Anti-Xa Level ABG pH POC ABG pCO2 POC ABG pO2 ABG pO2 ABG Hemoglobin ABG Oxyhemoglobin ABG Sodium ABG Potassium ABG Chloride ABG Glucose Carboxyhemoglobin Sodium Potassium Chloride Carbon Dioxide BUN Creatinine Glucose POC Glucose 148 H Lactic Acid Calcium Phosphorus Magnesium Ferritin AST ALT Alkaline Phosphatase Lactate Dehydrogenase Troponin T C-Reactive Protein Total Protein Albumin HDL Cholesterol Arterial Blood Glucose Arterial Blood Ionized Calcium Urine WBC (Auto) Urine Creatinine 74.7 H 06/16/21 06/16/21 06/16/21 04:31 05:48 11:47 WBC RBC Hgb Hct MCV MCH MCHC RDW [place] % (Auto) [place] # (Auto) Seg Neutrophils % Seg Neuts % (Manual) Lymphocytes % (Manual) Monocytes % (Manual) Seg Neutrophils # Seg Neutrophils # Man Lymphocytes # (Manual) Monocytes # (Manual) PT APTT D-Dimer Heparin Anti-Xa Level ABG pH POC ABG pCO2 POC ABG pO2 ABG pO2 ABG Hemoglobin ABG Oxyhemoglobin ABG Sodium ABG Potassium ABG Chloride ABG Glucose Carboxyhemoglobin Sodium Potassium Chloride Carbon Dioxide BUN 49 H Creatinine 1.3 H Glucose 194 H POC Glucose 184 H 190 H Lactic Acid Calcium Phosphorus 5.40 H Magnesium 2.90 H Ferritin AST ALT Alkaline Phosphatase Lactate Dehydrogenase Troponin T C-Reactive Protein Total Protein Albumin HDL Cholesterol Arterial Blood Glucose Arterial Blood Ionized Calcium Urine WBC (Auto) Urine Creatinine 06/16/21 06/16/21 06/16/21 18:51 18:51 23:13 WBC 12.4 H RBC 2.22 L Hgb 7.3 L Hct 22.4 L MCV 101 H MCH 33 H MCHC RDW [place] % (Auto) [place] # (Auto) Seg Neutrophils % Seg Neuts % (Manual) Lymphocytes % (Manual) Monocytes % (Manual) Seg Neutrophils # Seg Neutrophils # Man Lymphocytes # (Manual) Monocytes # (Manual) PT APTT 64.1 H* D-Dimer Heparin Anti-Xa Level ABG pH POC ABG pCO2 POC ABG pO2 ABG pO2 ABG Hemoglobin ABG Oxyhemoglobin ABG Sodium ABG Potassium ABG Chloride ABG Glucose Carboxyhemoglobin Sodium Potassium Chloride Carbon Dioxide BUN Creatinine Glucose POC Glucose 160 H Lactic Acid Calcium Phosphorus Magnesium Ferritin AST ALT Alkaline Phosphatase Lactate Dehydrogenase Troponin T C-Reactive Protein Total Protein Albumin HDL Cholesterol Arterial Blood Glucose Arterial Blood Ionized Calcium Urine WBC (Auto) Urine Creatinine 06/17/21 06/17/21 06/17/21 04:19 05:02 11:56 WBC RBC Hgb Hct MCV MCH MCHC RDW [place] % (Auto) [place] # (Auto) Seg Neutrophils % Seg Neuts % (Manual) Lymphocytes % (Manual) Monocytes % (Manual) Seg Neutrophils # Seg Neutrophils # Man Lymphocytes # (Manual) Monocytes # (Manual) PT APTT D-Dimer Heparin Anti-Xa Level 1.53 H ABG pH POC ABG pCO2 POC ABG pO2 ABG pO2 ABG Hemoglobin ABG Oxyhemoglobin ABG Sodium ABG Potassium ABG Chloride ABG Glucose Carboxyhemoglobin Sodium Potassium Chloride Carbon Dioxide BUN Creatinine Glucose POC Glucose 167 H 166 H Lactic Acid Calcium Phosphorus Magnesium Ferritin AST ALT Alkaline Phosphatase Lactate Dehydrogenase Troponin T C-Reactive Protein Total Protein Albumin HDL Cholesterol Arterial Blood Glucose Arterial Blood Ionized Calcium Urine WBC (Auto) Urine Creatinine 06/17/21 06/17/21 06/17/21 17:48 22:42 23:08 WBC RBC Hgb Hct MCV MCH MCHC RDW [place] % (Auto) [place] # (Auto) Seg Neutrophils % Seg Neuts % (Manual) Lymphocytes % (Manual) Monocytes % (Manual) Seg Neutrophils # Seg Neutrophils # Man Lymphocytes # (Manual) Monocytes # (Manual) PT APTT D-Dimer Heparin Anti-Xa Level ABG pH POC ABG pCO2 POC ABG pO2 ABG pO2 ABG Hemoglobin ABG Oxyhemoglobin ABG Sodium ABG Potassium ABG Chloride ABG Glucose Carboxyhemoglobin Sodium Potassium Chloride Carbon Dioxide BUN Creatinine Glucose POC Glucose 159 H 122 H 114 H Lactic Acid Calcium Phosphorus Magnesium Ferritin AST ALT Alkaline Phosphatase Lactate Dehydrogenase Troponin T C-Reactive Protein Total Protein Albumin HDL Cholesterol Arterial Blood Glucose Arterial Blood Ionized Calcium Urine WBC (Auto) Urine Creatinine 06/18/21 06/18/21 06/18/21 05:40 06:20 13:11 WBC RBC 2.19 L Hgb 7.3 L Hct 21.9 L MCV 100 H MCH 33 H MCHC RDW [place] % (Auto) [place] # (Auto) Seg Neutrophils % Seg Neuts % (Manual) Lymphocytes % (Manual) Monocytes % (Manual) Seg Neutrophils # Seg Neutrophils # Man Lymphocytes # (Manual) Monocytes # (Manual) PT APTT D-Dimer Heparin Anti-Xa Level ABG pH POC ABG pCO2 POC ABG pO2 ABG pO2 ABG Hemoglobin ABG Oxyhemoglobin ABG Sodium ABG Potassium ABG Chloride ABG Glucose Carboxyhemoglobin Sodium Potassium Chloride Carbon Dioxide BUN Creatinine Glucose POC Glucose 174 H 149 H Lactic Acid Calcium Phosphorus Magnesium Ferritin AST ALT Alkaline Phosphatase Lactate Dehydrogenase Troponin T C-Reactive Protein Total Protein Albumin HDL Cholesterol Arterial Blood Glucose Arterial Blood Ionized Calcium Urine WBC (Auto) Urine Creatinine 06/18/21 06/18/21 06/18/21 18:50 21:45 23:12 WBC RBC Hgb Hct MCV MCH MCHC RDW [place] % (Auto) [place] # (Auto) Seg Neutrophils % Seg Neuts % (Manual) Lymphocytes % (Manual) Monocytes % (Manual) Seg Neutrophils # Seg Neutrophils # Man Lymphocytes # (Manual) Monocytes # (Manual) PT APTT D-Dimer Heparin Anti-Xa Level ABG pH POC ABG pCO2 POC ABG pO2 ABG pO2 ABG Hemoglobin ABG Oxyhemoglobin ABG Sodium ABG Potassium ABG Chloride ABG Glucose Carboxyhemoglobin Sodium Potassium Chloride Carbon Dioxide BUN Creatinine Glucose POC Glucose 152 H 151 H 178 H Lactic Acid Calcium Phosphorus Magnesium Ferritin AST ALT Alkaline Phosphatase Lactate Dehydrogenase Troponin T C-Reactive Protein Total Protein Albumin HDL Cholesterol Arterial Blood Glucose Arterial Blood Ionized Calcium Urine WBC (Auto) Urine Creatinine 06/19/21 06/19/21 06/19/21 06:20 06:20 11:54 WBC RBC 2.19 L Hgb 7.4 L Hct 22.2 L MCV 102 H MCH 34 H MCHC RDW [place] % (Auto) 11.3 H [place] # (Auto) 1.0 H Seg Neutrophils % Seg Neuts % (Manual) Lymphocytes % (Manual) Monocytes % (Manual) Seg Neutrophils # Seg Neutrophils # Man Lymphocytes # (Manual) Monocytes # (Manual) PT APTT D-Dimer Heparin Anti-Xa Level ABG pH POC ABG pCO2 POC ABG pO2 ABG pO2 ABG Hemoglobin ABG Oxyhemoglobin ABG Sodium ABG Potassium ABG Chloride ABG Glucose Carboxyhemoglobin Sodium 148 H Potassium Chloride 109.4 H Carbon Dioxide BUN 26 H Creatinine Glucose 109 H POC Glucose 131 H Lactic Acid Calcium Phosphorus Magnesium 2.40 H Ferritin AST ALT Alkaline Phosphatase Lactate Dehydrogenase Troponin T C-Reactive Protein Total Protein Albumin HDL Cholesterol Arterial Blood Glucose Arterial Blood Ionized Calcium Urine WBC (Auto) Urine Creatinine 06/19/21 06/19/21 06/19/21 17:21 21:31 23:13 WBC RBC Hgb Hct MCV MCH MCHC RDW [place] % (Auto) [place] # (Auto) Seg Neutrophils % Seg Neuts % (Manual) Lymphocytes % (Manual) Monocytes % (Manual) Seg Neutrophils # Seg Neutrophils # Man Lymphocytes # (Manual) Monocytes # (Manual) PT APTT D-Dimer Heparin Anti-Xa Level ABG pH POC ABG pCO2 POC ABG pO2 ABG pO2 ABG Hemoglobin ABG Oxyhemoglobin ABG Sodium ABG Potassium ABG Chloride ABG Glucose Carboxyhemoglobin Sodium Potassium Chloride Carbon Dioxide BUN Creatinine Glucose POC Glucose 178 H 174 H 216 H Lactic Acid Calcium Phosphorus Magnesium Ferritin AST ALT Alkaline Phosphatase Lactate Dehydrogenase Troponin T C-Reactive Protein Total Protein Albumin HDL Cholesterol Arterial Blood Glucose Arterial Blood Ionized Calcium Urine WBC (Auto) Urine Creatinine 06/20/21 06/20/21 06/20/21 04:18 05:15 11:22 WBC RBC 2.26 L Hgb 7.7 L Hct 22.9 L MCV 101 H MCH 34 H MCHC RDW [place] % (Auto) [place] # (Auto) Seg Neutrophils % Seg Neuts % (Manual) Lymphocytes % (Manual) Monocytes % (Manual) Seg Neutrophils # Seg Neutrophils # Man Lymphocytes # (Manual) Monocytes # (Manual) PT APTT D-Dimer Heparin Anti-Xa Level ABG pH POC ABG pCO2 POC ABG pO2 ABG pO2 ABG Hemoglobin ABG Oxyhemoglobin ABG Sodium ABG Potassium ABG Chloride ABG Glucose Carboxyhemoglobin Sodium Potassium Chloride Carbon Dioxide BUN Creatinine Glucose POC Glucose 119 H 177 H Lactic Acid Calcium Phosphorus Magnesium Ferritin AST ALT Alkaline Phosphatase Lactate Dehydrogenase Troponin T C-Reactive Protein Total Protein Albumin HDL Cholesterol Arterial Blood Glucose Arterial Blood Ionized Calcium Urine WBC (Auto) Urine Creatinine 06/20/21 06/20/21 06/20/21 13:30 17:58 21:24 WBC RBC Hgb Hct MCV MCH MCHC RDW [place] % (Auto) [place] # (Auto) Seg Neutrophils % Seg Neuts % (Manual) Lymphocytes % (Manual) Monocytes % (Manual) Seg Neutrophils # Seg Neutrophils # Man Lymphocytes # (Manual) Monocytes # (Manual) PT APTT D-Dimer Heparin Anti-Xa Level ABG pH POC ABG pCO2 POC ABG pO2 ABG pO2 ABG Hemoglobin ABG Oxyhemoglobin ABG Sodium ABG Potassium ABG Chloride ABG Glucose Carboxyhemoglobin Sodium Potassium Chloride Carbon Dioxide BUN 31 H Creatinine Glucose 196 H POC Glucose 151 H 141 H Lactic Acid Calcium Phosphorus Magnesium Ferritin AST ALT Alkaline Phosphatase Lactate Dehydrogenase Troponin T C-Reactive Protein Total Protein Albumin HDL Cholesterol Arterial Blood Glucose Arterial Blood Ionized Calcium Urine WBC (Auto) Urine Creatinine 06/20/21 06/21/21 06/21/21 23:46 04:07 04:59 WBC RBC Hgb Hct MCV MCH MCHC RDW [place] % (Auto) [place] # (Auto) Seg Neutrophils % Seg Neuts % (Manual) Lymphocytes % (Manual) Monocytes % (Manual) Seg Neutrophils # Seg Neutrophils # Man Lymphocytes # (Manual) Monocytes # (Manual) PT APTT D-Dimer Heparin Anti-Xa Level ABG pH POC ABG pCO2 POC ABG pO2 ABG pO2 ABG Hemoglobin ABG Oxyhemoglobin ABG Sodium ABG Potassium ABG Chloride ABG Glucose Carboxyhemoglobin Sodium Potassium Chloride Carbon Dioxide BUN 36 H Creatinine Glucose 220 H POC Glucose 137 H 213 H Lactic Acid Calcium Phosphorus Magnesium Ferritin AST 79 H ALT 79 H Alkaline Phosphatase 159 H Lactate Dehydrogenase Troponin T C-Reactive Protein Total Protein Albumin 2.6 L HDL Cholesterol Arterial Blood Glucose Arterial Blood Ionized Calcium Urine WBC (Auto) Urine Creatinine 06/21/21 06/21/21 06/21/21 08:10 11:45 17:18 WBC RBC 2.13 L Hgb 7.4 L Hct 21.1 L MCV 99 H MCH 35 H MCHC 35 H RDW [place] % (Auto) 9.3 H [place] # (Auto) 0.9 H Seg Neutrophils % Seg Neuts % (Manual) Lymphocytes % (Manual) Monocytes % (Manual) Seg Neutrophils # Seg Neutrophils # Man Lymphocytes # (Manual) Monocytes # (Manual) PT APTT D-Dimer Heparin Anti-Xa Level ABG pH POC ABG pCO2 POC ABG pO2 ABG pO2 ABG Hemoglobin ABG Oxyhemoglobin ABG Sodium ABG Potassium ABG Chloride ABG Glucose Carboxyhemoglobin Sodium Potassium Chloride Carbon Dioxide BUN Creatinine Glucose POC Glucose 176 H 129 H Lactic Acid Calcium Phosphorus Magnesium Ferritin AST ALT Alkaline Phosphatase Lactate Dehydrogenase Troponin T C-Reactive Protein Total Protein Albumin HDL Cholesterol Arterial Blood Glucose Arterial Blood Ionized Calcium Urine WBC (Auto) Urine Creatinine 06/21/21 06/22/21 06/22/21 23:02 04:36 04:36 WBC RBC 2.38 L Hgb 8.0 L Hct 23.7 L MCV 100 H MCH 33 H MCHC RDW [place] % (Auto) [place] # (Auto) Seg Neutrophils % Seg Neuts % (Manual) Lymphocytes % (Manual) Monocytes % (Manual) Seg Neutrophils # Seg Neutrophils # Man Lymphocytes # (Manual) Monocytes # (Manual) PT APTT D-Dimer Heparin Anti-Xa Level ABG pH POC ABG pCO2 POC ABG pO2 ABG pO2 ABG Hemoglobin ABG Oxyhemoglobin ABG Sodium ABG Potassium ABG Chloride ABG Glucose Carboxyhemoglobin Sodium Potassium Chloride Carbon Dioxide BUN 36 H Creatinine Glucose 167 H POC Glucose 111 H Lactic Acid Calcium Phosphorus Magnesium Ferritin AST ALT Alkaline Phosphatase Lactate Dehydrogenase Troponin T C-Reactive Protein Total Protein Albumin HDL Cholesterol Arterial Blood Glucose Arterial Blood Ionized Calcium Urine WBC (Auto) Urine Creatinine 06/22/21 06/22/21 06/22/21 05:22 12:12 18:17 WBC RBC Hgb Hct MCV MCH MCHC RDW [place] % (Auto) [place] # (Auto) Seg Neutrophils % Seg Neuts % (Manual) Lymphocytes % (Manual) Monocytes % (Manual) Seg Neutrophils # Seg Neutrophils # Man Lymphocytes # (Manual) Monocytes # (Manual) PT APTT D-Dimer Heparin Anti-Xa Level ABG pH POC ABG pCO2 POC ABG pO2 ABG pO2 ABG Hemoglobin ABG Oxyhemoglobin ABG Sodium ABG Potassium ABG Chloride ABG Glucose Carboxyhemoglobin Sodium Potassium Chloride Carbon Dioxide BUN Creatinine Glucose POC Glucose 160 H 176 H 161 H Lactic Acid Calcium Phosphorus Magnesium Ferritin AST ALT Alkaline Phosphatase Lactate Dehydrogenase Troponin T C-Reactive Protein Total Protein Albumin HDL Cholesterol Arterial Blood Glucose Arterial Blood Ionized Calcium Urine WBC (Auto) Urine Creatinine 06/22/21 06/22/21 06/23/21 21:30 22:29 04:00 WBC RBC 2.22 L Hgb 7.5 L Hct 22.4 L MCV 101 H MCH 34 H MCHC RDW [place] % (Auto) [place] # (Auto) Seg Neutrophils % Seg Neuts % (Manual) Lymphocytes % (Manual) Monocytes % (Manual) Seg Neutrophils # Seg Neutrophils # Man Lymphocytes # (Manual) Monocytes # (Manual) PT APTT D-Dimer Heparin Anti-Xa Level ABG pH POC ABG pCO2 POC ABG pO2 ABG pO2 ABG Hemoglobin ABG Oxyhemoglobin ABG Sodium ABG Potassium ABG Chloride ABG Glucose Carboxyhemoglobin Sodium Potassium Chloride Carbon Dioxide BUN Creatinine Glucose POC Glucose 175 H 222 H Lactic Acid Calcium Phosphorus Magnesium Ferritin AST ALT Alkaline Phosphatase Lactate Dehydrogenase Troponin T C-Reactive Protein Total Protein Albumin HDL Cholesterol Arterial Blood Glucose Arterial Blood Ionized Calcium Urine WBC (Auto) Urine Creatinine 06/23/21 06/23/21 06/23/21 04:00 05:09 10:50 WBC RBC Hgb Hct MCV MCH MCHC RDW [place] % (Auto) [place] # (Auto) Seg Neutrophils % Seg Neuts % (Manual) Lymphocytes % (Manual) Monocytes % (Manual) Seg Neutrophils # Seg Neutrophils # Man Lymphocytes # (Manual) Monocytes # (Manual) PT APTT D-Dimer Heparin Anti-Xa Level ABG pH 7.484 H POC ABG pCO2 POC ABG pO2 ABG pO2 ABG Hemoglobin 7.1 L ABG Oxyhemoglobin ABG Sodium ABG Potassium 4.6 H ABG Chloride ABG Glucose 158 H Carboxyhemoglobin Sodium Potassium 5.2 H Chloride Carbon Dioxide BUN 43 H Creatinine 1.3 H Glucose 237 H POC Glucose 212 H Lactic Acid Calcium Phosphorus Magnesium Ferritin AST ALT Alkaline Phosphatase Lactate Dehydrogenase Troponin T C-Reactive Protein Total Protein Albumin HDL Cholesterol Arterial Blood Glucose 158 H Arterial Blood Ionized Calcium 4.3 L Urine WBC (Auto) Urine Creatinine 06/23/21 06/23/21 06/23/21 12:16 17:03 23:27 WBC RBC Hgb Hct MCV MCH MCHC RDW [place] % (Auto) [place] # (Auto) Seg Neutrophils % Seg Neuts % (Manual) Lymphocytes % (Manual) Monocytes % (Manual) Seg Neutrophils # Seg Neutrophils # Man Lymphocytes # (Manual) Monocytes # (Manual) PT APTT D-Dimer Heparin Anti-Xa Level ABG pH POC ABG pCO2 POC ABG pO2 ABG pO2 ABG Hemoglobin ABG Oxyhemoglobin ABG Sodium ABG Potassium ABG Chloride ABG Glucose Carboxyhemoglobin Sodium Potassium Chloride Carbon Dioxide BUN Creatinine Glucose POC Glucose 144 H 199 H 250 H Lactic Acid Calcium Phosphorus Magnesium Ferritin AST ALT Alkaline Phosphatase Lactate Dehydrogenase Troponin T C-Reactive Protein Total Protein Albumin HDL Cholesterol Arterial Blood Glucose Arterial Blood Ionized Calcium Urine WBC (Auto) Urine Creatinine 06/24/21 06/24/21 06/24/21 04:40 04:40 05:21 WBC RBC 2.07 L Hgb 7.1 L Hct 20.4 L MCV 99 H MCH 34 H MCHC 35 H RDW [place] % (Auto) [place] # (Auto) Seg Neutrophils % Seg Neuts % (Manual) Lymphocytes % (Manual) Monocytes % (Manual) Seg Neutrophils # Seg Neutrophils # Man Lymphocytes # (Manual) Monocytes # (Manual) PT APTT D-Dimer Heparin Anti-Xa Level ABG pH POC ABG pCO2 POC ABG pO2 ABG pO2 ABG Hemoglobin ABG Oxyhemoglobin ABG Sodium ABG Potassium ABG Chloride ABG Glucose Carboxyhemoglobin Sodium Potassium Chloride Carbon Dioxide BUN 45 H Creatinine Glucose 229 H POC Glucose 192 H Lactic Acid Calcium Phosphorus Magnesium Ferritin AST 83 H ALT 80 H Alkaline Phosphatase 142 H Lactate Dehydrogenase Troponin T C-Reactive Protein Total Protein Albumin 2.8 L HDL Cholesterol Arterial Blood Glucose Arterial Blood Ionized Calcium Urine WBC (Auto) Urine Creatinine 06/24/21 06/24/21 06/24/21 12:11 18:14 23:17 WBC RBC Hgb Hct MCV MCH MCHC RDW [place] % (Auto) [place] # (Auto) Seg Neutrophils % Seg Neuts % (Manual) Lymphocytes % (Manual) Monocytes % (Manual) Seg Neutrophils # Seg Neutrophils # Man Lymphocytes # (Manual) Monocytes # (Manual) PT APTT D-Dimer Heparin Anti-Xa Level ABG pH POC ABG pCO2 POC ABG pO2 ABG pO2 ABG Hemoglobin ABG Oxyhemoglobin ABG Sodium ABG Potassium ABG Chloride ABG Glucose Carboxyhemoglobin Sodium Potassium Chloride Carbon Dioxide BUN Creatinine Glucose POC Glucose 197 H 181 H 185 H Lactic Acid Calcium Phosphorus Magnesium Ferritin AST ALT Alkaline Phosphatase Lactate Dehydrogenase Troponin T C-Reactive Protein Total Protein Albumin HDL Cholesterol Arterial Blood Glucose Arterial Blood Ionized Calcium Urine WBC (Auto) Urine Creatinine 06/25/21 06/25/21 06/25/21 05:25 11:32 18:42 WBC RBC Hgb Hct MCV MCH MCHC RDW [place] % (Auto) [place] # (Auto) Seg Neutrophils % Seg Neuts % (Manual) Lymphocytes % (Manual) Monocytes % (Manual) Seg Neutrophils # Seg Neutrophils # Man Lymphocytes # (Manual) Monocytes # (Manual) PT APTT D-Dimer Heparin Anti-Xa Level ABG pH POC ABG pCO2 POC ABG pO2 ABG pO2 ABG Hemoglobin ABG Oxyhemoglobin ABG Sodium ABG Potassium ABG Chloride ABG Glucose Carboxyhemoglobin Sodium Potassium Chloride Carbon Dioxide BUN Creatinine Glucose POC Glucose 151 H 196 H 162 H Lactic Acid Calcium Phosphorus Magnesium Ferritin AST ALT Alkaline Phosphatase Lactate Dehydrogenase Troponin T C-Reactive Protein Total Protein Albumin HDL Cholesterol Arterial Blood Glucose Arterial Blood Ionized Calcium Urine WBC (Auto) Urine Creatinine 06/25/21 06/26/21 06/26/21 22:19 00:27 07:43 WBC RBC Hgb Hct MCV MCH MCHC RDW [place] % (Auto) [place] # (Auto) Seg Neutrophils % Seg Neuts % (Manual) Lymphocytes % (Manual) Monocytes % (Manual) Seg Neutrophils # Seg Neutrophils # Man Lymphocytes # (Manual) Monocytes # (Manual) PT APTT D-Dimer Heparin Anti-Xa Level ABG pH POC ABG pCO2 POC ABG pO2 ABG pO2 ABG Hemoglobin ABG Oxyhemoglobin ABG Sodium ABG Potassium ABG Chloride ABG Glucose Carboxyhemoglobin Sodium Potassium Chloride Carbon Dioxide BUN Creatinine Glucose POC Glucose 143 H 139 H 122 H Lactic Acid Calcium Phosphorus Magnesium Ferritin AST ALT Alkaline Phosphatase Lactate Dehydrogenase Troponin T C-Reactive Protein Total Protein Albumin HDL Cholesterol Arterial Blood Glucose Arterial Blood Ionized Calcium Urine WBC (Auto) Urine Creatinine 06/26/21 11:38 WBC RBC Hgb Hct MCV MCH MCHC RDW [place] % (Auto) [place] # (Auto) Seg Neutrophils % Seg Neuts % (Manual) Lymphocytes % (Manual) Monocytes % (Manual) Seg Neutrophils # Seg Neutrophils # Man Lymphocytes # (Manual) Monocytes # (Manual) PT APTT D-Dimer Heparin Anti-Xa Level ABG pH POC ABG pCO2 POC ABG pO2 ABG pO2 ABG Hemoglobin ABG Oxyhemoglobin ABG Sodium ABG Potassium ABG Chloride ABG Glucose Carboxyhemoglobin Sodium Potassium Chloride Carbon Dioxide BUN Creatinine Glucose POC Glucose 129 H Lactic Acid Calcium Phosphorus Magnesium Ferritin AST ALT Alkaline Phosphatase Lactate Dehydrogenase Troponin T C-Reactive Protein Total Protein Albumin HDL Cholesterol Arterial Blood Glucose Arterial Blood Ionized Calcium Urine WBC (Auto) Urine Creatinine Chest x-ray: report reviewed, image reviewed Additional Studies: CHEST 1 VIEW 06/23/2021 11:28 PM INDICATION / CLINICAL INFORMATION: aspiration. COMPARISON: 06/21/2021 FINDINGS: SUPPORT DEVICES: Stable, satisfactory device positioning. HEART / MEDIASTINUM: No significant abnormality. LUNGS / PLEURA: Left basilar opacity which may represent atelectasis versus aspiration pneumonitis. No pneumothorax. ADDITIONAL FINDINGS: No significant additional findings. IMPRESSION: 1. Left basilar opacity which may represent atelectasis versus aspiration pneumonitis. Allied health notes reviewed: RT
[2021-06-26] MEDS: INSULIN GLARGINE 100 UNITS/ML SUB-Q SCH (22:09)
[2021-06-27] MEDS: INSULIN LISPRO 100 UNIT/ML SUB-Q SCH ×3 (01:50→12:30)
[2021-06-27] MEDS: FREE WATER PO SCH ×4 (01:51→14:16)
[2021-06-27] MEDS: METOCLOPRAMIDE 10 MG/2 ML INJ IV SCH ×2 (07:01→14:20)
[2021-06-27] MEDS: GLYCOPYRROLATE 2 MG TAB PO SCH (07:02)
[2021-06-27] MEDS: hydrALAZINE 25 MG TAB PO SCH ×2 (07:02→14:19)
[2021-06-27 07:03] VITALS: BP 143/62
--- NOTE | 2021-06-27 07:07 | Progress Note ---
Assessment and Plan This is a 65 year old female with HTN, nonepileptic spells, PTSD, close head injury, DM, CAD s/p stents and OK, independence, hyperlipidemia admitted with sepsis, pneumonia, acute proximal respiratory failure, toxic metabolic encephalopathy, suspected anoxic brain injury, metabolic acidosis Assessment and Plan: --S/p cardiac arrest, A. fib with RVR, h/o HTN -Currently on Labetalol, Hydralazine, valsartan, & Doxazosin -PRN hydral IV -Cardiology consulted, appreciate recommendations -05/2020 dobutamine thallium stress test showed normal perfusion study. -05/2020 echo showed normal left ventricular systolic function. -NIBP per protocol --Toxic metabolic encephalopathy, likely anoxic brain injury with bilateral watershed infarct, tonic-cloninc seziure; h/o nonepileptic spells, PTSD, closed head injury -Neurology consulted, appreciate recommendations -CT head completed->see results, without acute or large territorial infarct -Per neurology: MRI brain is suggestive of water shed Infarct Bilateral -- mostly related to Hypoperfusion -06/01 repeat MRI brain noted, possible subacute ischemic changes. -Intact cough/gag, pupils sluggish -Keppra -EEG showed no signs of seizure -prn ativan -Patient is off sedation, open eyes spontaneously, pupils reactive, with +gag and cough. -Not following commands, no movement to stimuli --Acute hypoxic respiratory failure -[facility] consulted, appreciate recommendations - s/p trach on 06/12 -06/15 T piece trials started, currently on T-piece -Tolerated Tpiece trial for over 24hrs -ABG/CXR per [facility] -Continuous SP02 monitoring for SPO2 above 92% -Scopalamine and robinul for secretions -Now transferred to telemetry -- protein -aspen malnutrition -Ntr consult for TF -PEG placed 06/12 - 06/22 KUB with no acute abnormality -PPI- Pepcid -BR: senokot, maalox, colace; prn dulcolax -BM: 06/22 -- Acute renal injury likely 2/2 to vasomotor nephrology -Renal function remains stable and was normal on admission -strict I&O -daily weights -purwick -Trend BMP -Monitor and replete electrolytes as needed -FWF 100 q 4hours -hypernatremia and Cr slightly improving --Hyperglycemia, h/o DM -SSI -Lantus, titrate as needed -Avoid hypoglycemia -accucheck q6 -- Leukocytosis, likely stress-induced and from underlying pneumonia -CTA chest without evidence of PE -IV heparin d/t afib -transitioned to PO Eliquis -Trend CBC -Transfuse for hgb<7 --Sepsis, Bilateral Lower Lobe Infiltrates/community-acquired pneumonia -COVID 19 PCR (-) -s/p cefepime 05/25-05/29 -admit cxr with infiltrates, CTA chest with dense dependent consolidation/atelectasis in lungs -Monitor temp and WBC curve -noted spike in temp overnight -CXR, Blood culture, UA, 06/19Sputum culture pos. Ecoli -BC/UC/Tracheal aspirate NGTD from 05/25 -Covid 19 PCR negative -06/07 CRP 28.90 and procal 0.36 -Tracheal aspirate gram-negative rods, empiric antibiotics cefepime ordered, follow culture sensitivities - Cefepine switch to rocephin per sensitivity -Consider ID evaluation if febrile --DVT prophylaxis --Full CODE STATUS Hospital Course to Date: 05/26/21: Updated family at the bedside, Covid test is negative. Will order EEG and neuro consult. Remains intubated, follow clinically. Sedated on Midazolam and Propofol, just received one dose of Lorazepam for witnessed seizure by RN. NSR now, on heparin drip 05/27/21; remains intubated. pending EEG and neuro eval. wean off vent as tolerated. Continue heparin drip per cardiology, replete potassium yesterday, f ollow BMP. BP noted to be elevated, next started on antihypertensives. 05/28/21; BP noted to be elevated, initiated on antihypertensive, remains intubated. Pending neurology evaluation and EEG. Continue supportive care, follow BMP. 05/29/21: Ordered for MRI brain, continue Keppra, pending EEG. Appreciate neuro recommendation. follow BMP, tolerating TF 05/30/21: Patient remains intubated, pending MRI brain, follow neurology recommendation. EEG showed diffuse slowing. 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 off sedation now, cont to follow. gurded prognosis 06/01: MRI was suggestive of watershed infarct bilaterally and was seen by neurology and recommend to do MRI with gadolinium. Patient is off sedation and still unresponsive. Prognosis is guarded. 06/02: Continue current management. Prognosis is guarded. Patient needs trach. 06/03: Patient is unresponsive spite of all sedatives. Prognosis is guarded to poor. Neurology consult appreciated. 06/04: Patient is unresponsive. Patient is off sedatives. Blood sugar is uncontrolled and I adjusted her insulin. Neurology consult appreciated. Prog nosis is guarded to poor. 06/05/21- Patient remains ETT and on vent support. Off sedation with some improvement in neuro status, but is not following commands. Patient is tolerating SBT trial this am, still on the heparin gtt. AM labs is pending. Patient is still hyperglycemic, increased Qhs lantus. Continue supportive care. 06/06/21- Patient is intubated and on the vent. No longer on sedation, awake but unresponsive, tolerating SBT. Hyperglycemia this am, X1 dose of kayaxalate orderd. Persistent hyperglycemia, insulin adjusted. Continue to monitor electrolytes, repeat BMP this afternoon and am labs ordered. 06/07/21- Patient remains intubated and on the vent. Neuro status is unchanged, spontaneously open yes but is not following commands. SBT trial again, plan to place back on a rate overnight. Leukocytosis noted from this morning lab, stat procalc and CRP ordered, d/w CCM no abx at this time. K 5.4 today, kayalalxate given. Continue to monitor leukocytosis and electrolytes. Am labs ordered 06/08/21- Patient remains intubated and on the vent with no significant change in her neuro status. Patient with no BM in 7days, abdominal soft with positive bowel sounds, colace added and PRN ducolax Supp PRN. Continue to monitor leukocytosis and electrolytes, am labs ordered. Plan for trach and PEG, surgery consulted. 06/09/21- Patient remains stable, intubated with no significant change in neuro status. Trach and Peg cancelled for today. Plan for possibly next week. Hyperkalemia again today, chart review for possible meds interaction. X1 dose of kayexalate ordered. Still no BM today. Episode of emesis today, TF held and NGT to LIS until tommorrow. Orders place for KUB today and Chest XR for the morning. Morning labs ordered. 06/10: Continue supportive care. Trach and PEG planned for early next week. KUB and x-ray with no significant change. Opacity still persist. Critical care management noted. Patient still persistent leukocytosis we will continue to monitor mild hypokalemia noted will replace with potassium. Also noted mild hyp ernatremia. Agree with holding tube feeds at this time 06/11: Discussed with nursing staff to change to history trickle feeds. Patient is planned for trach and PEG Saturday or Saturday. Continue current management also discussed to hold heparin drip for planned procedure with noted timeframe. We will recheck labs to ensure correction of electrolytes. 06/12/21- Patient's status is unchanged. No significant events overnight. Plan for trach and PEG today. TF and heparin gtt on hold. Continue supportive care. Continue to monitor electrolytes, am labs ordered. 06/13/21- Patient is s/p trach and PEG. D/w surgery okay to use PEGTube and restart TF. Heparin gtt was also restarted per protocol. Persistent hypernatremia and FWF increased for 48hrs, mild hyperkalemia noted no interven tion at this time. Continue to monitor renal function and electrolytes, am labs ordered. 06/14: Transition to PO anticoagulation from heparin gtt tomorrow. plan to place on tpiece tomorrow. 06/15: Patient spiked a temp today and was root cultured, h/h decreasing and stool occult ordered. Increase in insulin. T piece trials today. Small volume emesis x2 06/16; patient is on T-piece, On heparin drip for A. fib, will transition to Eliquis , I discussed the case with battery engineer 06/17; tracheal cultures positive for gram-negative rods, ordered cefepime, follow cultures Consider ID consult 06/18 no significant change, patient receiving cefepime[sputum cultures gram- negative rods] Follow sensitivities, ID if needed 06/19- Patient was place on Tpiece this morning, plan for Tpiece for 12hrs and rest on the vent overnight. Patient remains afebrile, leukocytosis improved, and patient remains on empiric IV abx. D/W CCM possible ID consult if worsen. 06/20- No significant change in patient status. Patient is tolerating Tpiece, plan to rest on the vent overnight. Patient TMAX 99.8, leukocytosis remains stable, cefepine transition to Rocephin for +Ecoli in sputum. Consider ID consult if febrile. Will continue to monitor, am labs ordered 06/21- Patient remains stable on the vent, continue daily tpiece trial for 12 hrs then rest on the vent at night. Low grade temp noted TMAx 100.7, d/w [facility] ID consult placed for further recommendations. Continue current IV abx for now. Will continue to monitor, am labs ordered. 06/22- Patient is tolerating tpiece @28% and 6L, SPO2 @100%. Vomited yesterday, KUB and CXR are unremarkable, reglan added Q8hrs. Plan to stay on Tpiece overnight, repeat ABG at 2100. Will continue to monitor 06/23- Patient tolerated Tpiece for over 24hrs, today's ABG noted, d/w CCM patient is stable to be transfer to telemetry. Slight hyperkalemia noted, X1 dose of kayaxalate ordered, renal function remains stable. Per case management, patient was denied for LTACH and Rehab, plan for possible SNF placement at this time. Continue to monitor renal function and electrolytes. 06/24: Continue supportive care, LTAC placement denied. Plan for possible SNF placement continue to provide supportive care 06/25: Discussed with patient's son in details and they want to set up home hospice for the patient. Continue to follow clinically with supportive care. manager student services consulted for hospice placement. 06/26: ordered for discharge with home hospice but family unable to receive the patient. cont supportive care. Subjective Date of service: 06/26/21 Principal diagnosis: Ac hypoxemic resp failure; Cardiac arrest; Seizures; Sepsis; AMS; A-Fib RVR Interval history: Patient seen and examined. Medical records and medication list reviewed. Pt is on T-piece, off sedation, on TF Discussed plan of care at bedside with patient.s RN Pending placement Objective - Exam Narrative Exam: General appearance: Present: Remains on T-piece, does not follow command, nonverbal - EENT Eyes: Present: PERRL - Respiratory Respiratory effort: normal Respiratory: bilateral: diminished - Cardiovascular Rhythm: regular Heart Sounds: Present: S1 & S2 - Extremities Extremities: no ischemia, pulses intact, pulses symmetrical Extremity abnormal: edema - Peripheral Assessment Generalized Edema Type: Non-pitting Edema Degree: 1+ Capillary Refill: < 3 seconds Skin Temperature: Warm Peripheral Pulses: within normal limits - Abdominal General gastrointestinal: soft, non-tender, normal bowel sounds - Integumentary Integumentary: Present: clear, warm, dry - Psychiatric Psychiatric: other (BJ) - Neurologic Neurologic: other ([facility]) - Allied Health Allied health notes reviewed: nursing - Constitutional Vitals: Vital Signs - 12hr 06/26/21 06/26/21 06/26/21 21:07 21:09 22:02 Temperature Pulse Rate Respiratory Rate Blood Pressure 164/62 O2 Sat by Pulse 100 Oximetry O2 Sat by Pulse 100 Oximetry [ Assessment] 06/26/21 06/26/21 06/26/21 22:03 22:04 23:39 Temperature 98.7 F Pulse Rate 78 80 Respiratory 20 Rate Blood Pressure 164/62 164/62 179/57 O2 Sat by Pulse 100 Oximetry O2 Sat by Pulse Oximetry [ Assessment] 06/26/21 06/27/21 06/27/21 23:42 00:00 04:00 Temperature 98.7 F Pulse Rate 79 79 79 Respiratory 18 Rate Blood Pressure O2 Sat by Pulse 100 Oximetry O2 Sat by Pulse Oximetry [ Assessment] 06/27/21 06/27/21 06:00 07:02 Temperature Pulse Rate Respiratory Rate Blood Pressure 143/62 O2 Sat by Pulse 99 Oximetry O2 Sat by Pulse Oximetry [ Assessment] - Labs CBC & Chem 7: 06/24/21 04:40 06/24/21 04:40 Labs: Abnormal lab results 06/26/21 06/26/21 06/27/21 Range/Units 07:43 11:38 00:09 POC Glucose 122 H 129 H 199 H (70-105) mg/dL HEART Score - HEART Score Troponin: Troponin T 0.226 ng/mL (0.00-0.029) H* D 05/25/21 15:19
[2021-06-27] MEDS: POLYETHYLENE GLYCOL 3350 17 GM POWDER PO SCH (10:25)
[2021-06-27] MEDS: SENNOSIDES/DOCUSATE SODIUM 8.6/50 MG TAB FEEDTUBE SCH (10:25)
[2021-06-27] MEDS: DOCUSATE SODIUM 100 MG/10 ML ORAL LIQD PO SCH (10:25)
[2021-06-27] MEDS: VALSARTAN 160MG TAB PO SCH (10:27)
[2021-06-27] MEDS: FAMOTIDINE 20 MG TAB FEEDTUBE SCH (10:28)
[2021-06-27] MEDS: DOXAZOSIN 1 MG TAB PO SCH (10:28)
[2021-06-27] MEDS: APIXABAN 5 MG TAB PO SCH (10:28)
[2021-06-27] MEDS: levETIRAcetam 500 MG/5 ML ORAL LIQD FEEDTUBE SCH (10:29)
--- NOTE | 2021-06-27 11:31 | Discharge Summary ---
Providers - Providers Date of Admission: 05/25/21 13:48 Date of discharge: 06/27/21 Attending physician: BRANDON BACH 05/25/21 18:38 Consult to Physician [CONS] Routine Comment: Consulting Provider: [place] Physician Instructions: Reason For Exam: cardiac arrest, resp failure 05/25/21 19:04 Consult to Dietitian/Nutrition [CONS] Routine Physician Instructions: Reason For Exam: Reason for Consult: Write/Manage Tube Feeding 05/26/21 13:26 Consult to Physician [CONS] Routine Comment: Consulting Provider: KEVIN WILSON Physician Instructions: Reason For Exam: seizure 05/29/21 09:33 Midline [Consult to PICC Line RN] [CONS] Routine Reason For Exam: midline-edema Type Line:: Midline 06/05/21 12:20 Consult to Case Management [CONS] Routine Services Needed at Discharge: Other Notified:: KEANU Was contact made?: Yes If yes, spoke with:: Miss Aguilar Time called:: 10:46 Comment:: LTAC placement 06/08/21 15:23 Consult to Physician [CONS] Routine Comment: Spoke with dr. Wilson/ roque Consulting Provider: HERMILA WILSON Physician Instructions: Reason For Exam: Tracheostomy & PEG placement 06/13/21 10:18 Consult to Dietitian/Nutrition [CONS] Routine Physician Instructions: Assess nutrtn needs, initiate, modify, manage TF Reason For Exam: Reason for Consult: Write/Manage Tube Feeding Reason for Consult: Write/Manage Tube Feeding 06/25/21 15:25 Consult to Case Management [CONS] Routine Services Needed at Discharge: Other Notified:: caseworker protective services Additional Physician Instructions: hospice Primary care physician: POLICE ARTIST Hospitalization Reason for admission: Status post cardiac arrest/hypoxic respiratory failure/intubated on vent Condition: Fair Pertinent studies: Chest x-ray multiple CT head without contrast CTA chest CT abdomen and pelvis Echocardiogram Abdominal x-ray EEG MRI brain Repeat MRI brain Abdominal x-ray Multiple chest and abdominal x-rays Procedures: Tracheostomy PEG placement Hospital course: This is a 65 year old female with HTN, nonepileptic spells, PTSD, close head injury, DM, CAD s/p stents and [place], independence, hyperlipidemia admitted with sepsis, pneumonia, acute proximal respiratory failure, toxic metabolic encephalopathy, suspected anoxic brain injury, metabolic acidosis 65-year-old female, history of nonepileptic spells, PTSD, closed head injury, hypertension, diabetes, CAD, presents to the ED following cardiac arrest. EMS states Patient collapsed and became unresponsive. Patient was pulseless and apneic. Rhythm was asystole. Patient was intubated by EMS. She was given epi x2. CPR per ACLS protocol followed by return of pulses. Accu-Chek in the 200s.In ED, patient was pulseless again and CPR per ACLS restarted. Patient has return of pulse and noted to be in atrial fib, initiated on iv keppra and heparin drip. Admitted to ICU evaluated by pulmonary critical, cardiology optimized the medications which. Patient also has seizure activity, A. fib with rapid ventricular rate, SIRS, managed appropriately. Patient was also evaluated by neurology, and managed seizures and anoxic brain injury, Patient was stabilized and extubated, patient was critically ill, hospice has evaluated patient , patient's family, case management and hospice have recommended home ,. Patient is discharged home with hospice. Patient's condition is critically ill and with guarded prognosis, family is aware. Hemodynamically stable at discharge Discharge diagnosis: -- s/p cardiac arrest -- Acute hypoxemic respiratory failure Patient intubated and on ventilatory support. Critical care team consulted. Wean vent as tolerated, daily spontaneous breathing trial, sedation holiday, supportive care, arterial blood gas per protocol. --SIRS, likely from cardiac arrest and seizure s/p abx, all Cx so far neg, monitor off abx -COVID PUI, r/o with negative test --Possible Anoxic brain injury Supportive care, neuro check, repeat CT scan brain when medically stable. Consulted Neurology - Atrial fibrillation with RVR, paroxysmal Cardiology team consulted, continue therapeutic anticoagulation as per cardiology team with heparin drip, supportive care., Rate control. - Metabolic acidosis IV fluid resuscitation therapy, follow BMP --Toxic metabolic encephalopathy; --Tonic clonic Seizure Neuro check, antiepileptic therapy with Keppra, neuro consult, EEG order -- patient is full code, patient son Antwon Higginbotham acknowledges understanding and agreement with care plan, --Severe protein calorie malnutrition --Acute kidney injury; --Negative COVID-19 Patient is stable for discharge home with hospice Disposition: ADMITTED INPATIENT Final Discharge Diagnosis (Prints w/discharge instructions): Status post cardiac arrest. Toxic metabolic encephalopathy. Acute hypoxic respiratory failure. Severe protein calorie malnutrition. Acute kidney injury. Hyperglycemia/diabetes mellitus. Leukocytosis. Sepsis bilateral pneumonia. COVID-19 negative. Tracheal aspirate gram-negative rods treated Time spent for discharge: 35 MIN Core Measure Documentation - Palliative Care Palliative Care/ Comfort Measures: Hospice Care - Core Measures Any of the following diagnoses?: none Exam - Constitutional Vitals: Temp Pulse Resp BP Pulse Ox 98.7 F 79 18 143/62 96 06/26/21 23:42 06/27/21 04:00 06/26/21 23:42 06/27/21 10:28 06/27/21 09:11 General appearance: Present: no acute distress, well-nourished - EENT Eyes: Present: PERRL, EOM intact - Neck Neck: Present: supple, normal ROM - Respiratory Respiratory effort: normal Respiratory: bilateral: diminished, negative: rales, rhonchi, wheezing - Cardiovascular Rhythm: regular Heart Sounds: Present: S1 & S2 - Extremities Extremities: no ischemia, No edema - Abdominal General gastrointestinal: Present: soft, non-tender, non-distended, normal bowel sounds - Integumentary Integumentary: Present: clear, warm - Musculoskeletal Musculoskeletal: strength equal bilaterally - Psychiatric Psychiatric: appropriate mood/affect, cooperative - Neurologic Neurologic: moves all extremities Plan Activity: advance as tolerated, fall precautions Diet: other (Tube feeding per protocol) Additional Instructions: Aspiration precautions. Fall precautions. If you have worsening symptoms contact MD or go to the nearest emergency room. Rest of the management per medical technician assistant Follow up with: PRIMARY CARE, [Primary Care Provider] - 3-5 Days
--- NOTE | 2021-06-27 12:25 | Progress Note ---
Assessment and Plan This is a 65 year old female with HTN, nonepileptic spells, PTSD, close head injury, DM, CAD s/p stents and NC, independence, hyperlipidemia admitted with sepsis, pneumonia, acute respiratory failure, toxic metabolic encephalopathy, suspected anoxic brain injury, metabolic acidosis. Patient awake at this time.Not following commands.. Resting on T tube , FIO2 28%. O2 saturation 96%. No acute respiratory distress. Patient afebrile. No leukocytosis. Blood pressure 143/62, Chest xray done 06/23/21 reported Left basilar opacity which may represent atelectasis versus aspiration pneumonitis. Patient is on APIXABAN, Famitidine and Scopalamine. - Patient Problems (1) Acute hypoxemic respiratory failure Status: Acute Plan to address problem: Patient is on T tube, FIO2 28%. Patient is on Apixaban. Patient is on famotidine. Albuterol aerosol treatments q 6 hours prn for shortness of breath (2) ACS (acute coronary syndrome) Status: Acute Plan to address problem: Management as per cardiology. (3) Atrial fibrillation with RVR Status: Acute Plan to address problem: Patient is on Apixaban. Management as per cardiology. (4) Cardiac arrest Status: Acute Plan to address problem: Patient resucitated. Patient ROSC. (5) Toxic metabolic encephalopathy Status: Acute Plan to address problem: Management as per primary care and neurology. (6) Uncontrolled hypertension Status: Acute Plan to address problem: Management as per primary care . (7) Seizure Status: Acute Plan to address problem: Management as per primary care neurology. Subjective Date of service: 06/27/21 Principal diagnosis: Ac hypoxemic resp failure; Cardiac arrest; Seizures; Sepsis; AMS; A-Fib RVR Interval history: This is a 65 year old female with HTN, nonepileptic spells, PTSD, close head injury, DM, CAD s/p stents and NC, independence, hyperlipidemia admitted with sepsis, pneumonia, acute respiratory failure, toxic metabolic encephalopathy, suspected anoxic brain injury, metabolic acidosis. Patient awake at this time.Not following commands.. Resting on T tube , FIO2 28%. O2 saturation 96%. No acute respiratory distress. Patient afebrile. No leukocytosis. Blood pressure 143/62, Chest xray done 06/23/21 reported Left basilar opacity which may represent atelectasis versus aspiration pneumonitis. Patient is on APIXABAN, Famitidine and Scopalamine. Objective Vital Signs - 12hr 06/27/21 06/27/21 06/27/21 04:00 06:00 07:02 Pulse Rate 79 Blood Pressure 143/62 O2 Sat by Pulse 99 Oximetry O2 Sat by Pulse Oximetry [ Assessment] 06/27/21 06/27/21 06/27/21 09:10 09:11 10:27 Pulse Rate Blood Pressure 143/62 O2 Sat by Pulse 96 Oximetry O2 Sat by Pulse 96 Oximetry [ Assessment] 06/27/21 10:28 Pulse Rate Blood Pressure 143/62 O2 Sat by Pulse Oximetry O2 Sat by Pulse Oximetry [ Assessment] Constitutional: no acute distress, asleep, other (elderly female with normal respiratory effort at rest , trach to ATP) Eyes: non-icteric ENT: oropharynx moist, other (+ midline tracheostomy with mild secretions) Neck: supple, no lymphadenopathy Effort: mildly labored Ascultation: Bilateral: diminished breath sounds, rhonchi (scant) Percussion: Bilateral: not dull Cardiovascular: regular rate and rhythm, other (S1,S2) Gastrointestinal: normoactive bowel sounds, soft, non-tender, non-distended (p rotuberant), other (+ PEG tube) Integumentary: normal Extremities: no cyanosis, pulses normal, no ischemia or petechiae, other (Right femoral CVL) Neurologic: pupils equal and round, unable to assess, other (encephalopathic) Psychiatric: other (unable to assess) CBC and BMP: 06/24/21 04:40 06/24/21 04:40 ABG, PT/INR, D-dimer: ABG ABG pH 7.484 (7.320-7.450) H 06/23/21 10:50 POC ABG pCO2 39.0 mmHg (32.0-48.0) 06/23/21 10:50 ABG pCO2 30.3 mm Hg 05/29/21 05:28 POC ABG pO2 96.2 mmHg (83-108) 06/23/21 10:50 ABG pO2 96.2 mm Hg (80.0-90.0) H 05/29/21 05:28 POC ABG HCO3 28.7 06/23/21 10:50 ABG O2 Saturation 97.5 (0-100) 06/23/21 10:50 PT/INR, D-dimer PT 14.5 Sec. (12.2-14.9) 06/16/21 18:51 INR 1.08 (0.87-1.13) 06/16/21 18:51 D-Dimer > 81329 ng/mlDDU (0-234) H 05/25/21 09:21 Abnormal lab findings: Abnormal Labs 05/25/21 05/25/21 05/25/21 09:07 09:21 09:21 WBC 17.1 H RBC Hgb Hct MCV 106 H MCH 33 H MCHC RDW 15.6 H [place] % (Auto) [place] # (Auto) Seg Neutrophils % Seg Neuts % (Manual) Lymphocytes % (Manual) Monocytes % (Manual) Seg Neutrophils # Seg Neutrophils # Man 10.1 H Lymphocytes # (Manual) 5.6 H Monocytes # (Manual) PT 15.0 H APTT 44.3 H D-Dimer > 22367 H Heparin Anti-Xa Level ABG pH 7.116 L POC ABG pCO2 POC ABG pO2 ABG pO2 ABG Hemoglobin ABG Oxyhemoglobin 93.7 L ABG Sodium ABG Potassium ABG Chloride ABG Glucose 395 H Carboxyhemoglobin Sodium Potassium Chloride Carbon Dioxide BUN Creatinine Glucose POC Glucose Lactic Acid Calcium Phosphorus Magnesium Ferritin AST ALT Alkaline Phosphatase Lactate Dehydrogenase Troponin T C-Reactive Protein Total Protein Albumin HDL Cholesterol Arterial Blood Glucose 395 H Arterial Blood Ionized Calcium 4.4 L Urine WBC (Auto) Urine Creatinine 05/25/21 05/25/21 05/25/21 09:21 09:21 09:21 WBC RBC Hgb Hct MCV MCH MCHC RDW [place] % (Auto) [place] # (Auto) Seg Neutrophils % Seg Neuts % (Manual) Lymphocytes % (Manual) Monocytes % (Manual) Seg Neutrophils # Seg Neutrophils # Man Lymphocytes # (Manual) Monocytes # (Manual) PT APTT D-Dimer Heparin Anti-Xa Level ABG pH POC ABG pCO2 POC ABG pO2 ABG pO2 ABG Hemoglobin ABG Oxyhemoglobin ABG Sodium ABG Potassium ABG Chloride ABG Glucose Carboxyhemoglobin Sodium Potassium Chloride Carbon Dioxide 10 L BUN Creatinine Glucose 423 H 424 H POC Glucose Lactic Acid Calcium 8.2 L Phosphorus Magnesium Ferritin 321.6 H AST 162 H ALT 119 H Alkaline Phosphatase Lactate Dehydrogenase 445 H Troponin T C-Reactive Protein Total Protein 5.6 L Albumin 3.2 L HDL Cholesterol Arterial Blood Glucose Arterial Blood Ionized Calcium Urine WBC (Auto) Urine Creatinine 05/25/21 05/25/21 05/25/21 09:35 10:42 11:12 WBC RBC Hgb Hct MCV MCH MCHC RDW [place] % (Auto) [place] # (Auto) Seg Neutrophils % Seg Neuts % (Manual) Lymphocytes % (Manual) Monocytes % (Manual) Seg Neutrophils # Seg Neutrophils # Man Lymphocytes # (Manual) Monocytes # (Manual) PT APTT D-Dimer Heparin Anti-Xa Level ABG pH POC ABG pCO2 POC ABG pO2 ABG pO2 ABG Hemoglobin ABG Oxyhemoglobin ABG Sodium ABG Potassium ABG Chloride ABG Glucose Carboxyhemoglobin Sodium Potassium Chloride Carbon Dioxide BUN Creatinine Glucose POC Glucose Lactic Acid 16.70 H* 7.70 H* Calcium Phosphorus Magnesium Ferritin AST ALT Alkaline Phosphatase Lactate Dehydrogenase Troponin T C-Reactive Protein Total Protein Albumin HDL Cholesterol Arterial Blood Glucose Arterial Blood Ionized Calcium Urine WBC (Auto) 11.0 H Urine Creatinine 05/25/21 05/25/21 05/25/21 14:07 15:19 19:04 WBC RBC Hgb Hct MCV MCH MCHC RDW [place] % (Auto) [place] # (Auto) Seg Neutrophils % Seg Neuts % (Manual) Lymphocytes % (Manual) Monocytes % (Manual) Seg Neutrophils # Seg Neutrophils # Man Lymphocytes # (Manual) Monocytes # (Manual) PT APTT D-Dimer Heparin Anti-Xa Level ABG pH POC ABG pCO2 POC ABG pO2 172.2 H ABG pO2 ABG Hemoglobin ABG Oxyhemoglobin 98.7 H ABG Sodium 135.7 L ABG Potassium ABG Chloride ABG Glucose 255 H Carboxyhemoglobin 0.3 L Sodium Potassium Chloride Carbon Dioxide BUN Creatinine Glucose POC Glucose Lactic Acid 3.90 H* Calcium Phosphorus Magnesium Ferritin AST ALT Alkaline Phosphatase Lactate Dehydrogenase Troponin T 0.226 H* D C-Reactive Protein Total Protein Albumin HDL Cholesterol 64 H Arterial Blood Glucose 255 H Arterial Blood Ionized Calcium 3.8 L Urine WBC (Auto) Urine Creatinine 05/25/21 05/25/21 05/26/21 21:16 21:16 04:00 WBC RBC Hgb Hct MCV MCH MCHC RDW [place] % (Auto) [place] # (Auto) Seg Neutrophils % Seg Neuts % (Manual) Lymphocytes % (Manual) Monocytes % (Manual) Seg Neutrophils # Seg Neutrophils # Man Lymphocytes # (Manual) Monocytes # (Manual) PT APTT D-Dimer Heparin Anti-Xa Level 1.19 H ABG pH 7.547 H POC ABG pCO2 POC ABG pO2 ABG pO2 ABG Hemoglobin 11.9 L ABG Oxyhemoglobin ABG Sodium 133.2 L ABG Potassium 3.1 L ABG Chloride ABG Glucose 243 H Carboxyhemoglobin 0.3 L Sodium Potassium Chloride Carbon Dioxide BUN Creatinine Glucose POC Glucose Lactic Acid 2.50 H* Calcium Phosphorus Magnesium Ferritin AST ALT Alkaline Phosphatase Lactate Dehydrogenase Troponin T C-Reactive Protein Total Protein Albumin HDL Cholesterol Arterial Blood Glucose 243 H Arterial Blood Ionized Calcium Urine WBC (Auto) Urine Creatinine 05/26/21 05/26/21 05/26/21 05:49 05:49 17:33 WBC RBC Hgb Hct MCV MCH MCHC RDW [place] % (Auto) [place] # (Auto) Seg Neutrophils % Seg Neuts % (Manual) Lymphocytes % (Manual) Monocytes % (Manual) Seg Neutrophils # Seg Neutrophils # Man Lymphocytes # (Manual) Monocytes # (Manual) PT APTT D-Dimer Heparin Anti-Xa Level ABG pH POC ABG pCO2 POC ABG pO2 ABG pO2 ABG Hemoglobin ABG Oxyhemoglobin ABG Sodium ABG Potassium ABG Chloride ABG Glucose Carboxyhemoglobin Sodium Potassium Chloride Carbon Dioxide BUN Creatinine Glucose 226 H POC Glucose 156 H Lactic Acid 2.30 H* Calcium 7.2 L Phosphorus Magnesium Ferritin AST 111 H ALT 97 H Alkaline Phosphatase Lactate Dehydrogenase Troponin T C-Reactive Protein Total Protein 5.4 L Albumin 3.3 L HDL Cholesterol Arterial Blood Glucose Arterial Blood Ionized Calcium Urine WBC (Auto) Urine Creatinine 05/27/21 05/27/21 05/27/21 02:11 02:11 02:11 WBC 14.3 H RBC 3.27 L Hgb Hct MCV 99 H MCH 33 H MCHC RDW 15.3 H [place] % (Auto) [place] # (Auto) 1.0 H Seg Neutrophils % Seg Neuts % (Manual) Lymphocytes % (Manual) Monocytes % (Manual) Seg Neutrophils # 10.0 H Seg Neutrophils # Man Lymphocytes # (Manual) Monocytes # (Manual) PT APTT D-Dimer Heparin Anti-Xa Level 0.80 H ABG pH POC ABG pCO2 POC ABG pO2 ABG pO2 ABG Hemoglobin ABG Oxyhemoglobin ABG Sodium ABG Potassium ABG Chloride ABG Glucose Carboxyhemoglobin Sodium Potassium 2.9 L* D Chloride Carbon Dioxide 31 H BUN 6 L Creatinine Glucose 215 H POC Glucose Lactic Acid Calcium 8.1 L Phosphorus Magnesium Ferritin AST ALT Alkaline Phosphatase Lactate Dehydrogenase Troponin T C-Reactive Protein Total Protein Albumin HDL Cholesterol Arterial Blood Glucose Arterial Blood Ionized Calcium Urine WBC (Auto) Urine Creatinine 05/27/21 05/27/21 05/27/21 11:24 12:49 18:06 WBC RBC Hgb Hct MCV MCH MCHC RDW [place] % (Auto) [place] # (Auto) Seg Neutrophils % Seg Neuts % (Manual) Lymphocytes % (Manual) Monocytes % (Manual) Seg Neutrophils # Seg Neutrophils # Man Lymphocytes # (Manual) Monocytes # (Manual) PT APTT D-Dimer Heparin Anti-Xa Level ABG pH POC ABG pCO2 POC ABG pO2 ABG pO2 ABG Hemoglobin ABG Oxyhemoglobin ABG Sodium ABG Potassium ABG Chloride ABG Glucose Carboxyhemoglobin Sodium Potassium Chloride Carbon Dioxide BUN Creatinine Glucose POC Glucose 151 H 165 H 137 H Lactic Acid Calcium Phosphorus Magnesium Ferritin AST ALT Alkaline Phosphatase Lactate Dehydrogenase Troponin T C-Reactive Protein Total Protein Albumin HDL Cholesterol Arterial Blood Glucose Arterial Blood Ionized Calcium Urine WBC (Auto) Urine Creatinine 05/28/21 05/28/21 05/28/21 04:00 04:00 06:02 WBC 13.5 H RBC 3.05 L Hgb Hct MCV 100 H MCH 34 H MCHC RDW [place] % (Auto) [place] # (Auto) 0.9 H Seg Neutrophils % 78.2 H Seg Neuts % (Manual) Lymphocytes % (Manual) Monocytes % (Manual) Seg Neutrophils # 10.6 H Seg Neutrophils # Man Lymphocytes # (Manual) Monocytes # (Manual) PT APTT D-Dimer Heparin Anti-Xa Level ABG pH 7.507 H POC ABG pCO2 POC ABG pO2 ABG pO2 ABG Hemoglobin 10.6 L ABG Oxyhemoglobin ABG Sodium 129.4 L ABG Potassium ABG Chloride ABG Glucose 243 H Carboxyhemoglobin 0.2 L Sodium 136 L D Potassium Chloride Carbon Dioxide BUN Creatinine Glucose 215 H POC Glucose Lactic Acid Calcium Phosphorus Magnesium Ferritin AST ALT Alkaline Phosphatase Lactate Dehydrogenase Troponin T C-Reactive Protein Total Protein Albumin HDL Cholesterol Arterial Blood Glucose 243 H Arterial Blood Ionized Calcium 4.1 L Urine WBC (Auto) Urine Creatinine 05/28/21 05/28/21 05/29/21 11:27 23:02 04:30 WBC RBC Hgb 9.3 L Hct 26.7 L MCV MCH MCHC RDW [place] % (Auto) [place] # (Auto) Seg Neutrophils % Seg Neuts % (Manual) Lymphocytes % (Manual) Monocytes % (Manual) Seg Neutrophils # Seg Neutrophils # Man Lymphocytes # (Manual) Monocytes # (Manual) PT APTT D-Dimer Heparin Anti-Xa Level ABG pH POC ABG pCO2 POC ABG pO2 ABG pO2 ABG Hemoglobin ABG Oxyhemoglobin ABG Sodium ABG Potassium ABG Chloride ABG Glucose Carboxyhemoglobin Sodium Potassium Chloride Carbon Dioxide BUN Creatinine Glucose POC Glucose 220 H 212 H Lactic Acid Calcium Phosphorus Magnesium Ferritin AST ALT Alkaline Phosphatase Lactate Dehydrogenase Troponin T C-Reactive Protein Total Protein Albumin HDL Cholesterol Arterial Blood Glucose Arterial Blood Ionized Calcium Urine WBC (Auto) Urine Creatinine 05/29/21 05/29/21 05/29/21 05:02 05:28 12:55 WBC RBC Hgb Hct MCV MCH MCHC RDW [place] % (Auto) [place] # (Auto) Seg Neutrophils % Seg Neuts % (Manual) Lymphocytes % (Manual) Monocytes % (Manual) Seg Neutrophils # Seg Neutrophils # Man Lymphocytes # (Manual) Monocytes # (Manual) PT APTT D-Dimer Heparin Anti-Xa Level ABG pH 7.516 H POC ABG pCO2 POC ABG pO2 ABG pO2 96.2 H ABG Hemoglobin 7.5 L ABG Oxyhemoglobin ABG Sodium ABG Potassium ABG Chloride ABG Glucose Carboxyhemoglobin Sodium Potassium Chloride Carbon Dioxide BUN Creatinine Glucose POC Glucose 197 H 251 H Lactic Acid Calcium Phosphorus Magnesium Ferritin AST ALT Alkaline Phosphatase Lactate Dehydrogenase Troponin T C-Reactive Protein Total Protein Albumin HDL Cholesterol Arterial Blood Glucose Arterial Blood Ionized Calcium Urine WBC (Auto) Urine Creatinine 05/29/21 05/29/21 05/30/21 18:23 23:31 04:10 WBC RBC Hgb Hct MCV MCH MCHC RDW [place] % (Auto) [place] # (Auto) Seg Neutrophils % Seg Neuts % (Manual) Lymphocytes % (Manual) Monocytes % (Manual) Seg Neutrophils # Seg Neutrophils # Man Lymphocytes # (Manual) Monocytes # (Manual) PT APTT D-Dimer Heparin Anti-Xa Level ABG pH 7.532 H POC ABG pCO2 30.0 L POC ABG pO2 78.5 L ABG pO2 ABG Hemoglobin 11.3 L ABG Oxyhemoglobin ABG Sodium 126.7 L ABG Potassium ABG Chloride 94.0 L ABG Glucose 270 H Carboxyhemoglobin 0.4 L Sodium Potassium Chloride Carbon Dioxide BUN Creatinine Glucose POC Glucose 236 H 252 H Lactic Acid Calcium Phosphorus Magnesium Ferritin AST ALT Alkaline Phosphatase Lactate Dehydrogenase Troponin T C-Reactive Protein Total Protein Albumin HDL Cholesterol Arterial Blood Glucose 270 H Arterial Blood Ionized Calcium 4.4 L Urine WBC (Auto) Urine Creatinine 05/30/21 05/30/21 05/30/21 05:06 06:23 11:15 WBC RBC Hgb Hct MCV MCH MCHC RDW [place] % (Auto) [place] # (Auto) Seg Neutrophils % Seg Neuts % (Manual) Lymphocytes % (Manual) Monocytes % (Manual) Seg Neutrophils # Seg Neutrophils # Man Lymphocytes # (Manual) Monocytes # (Manual) PT APTT D-Dimer Heparin Anti-Xa Level ABG pH POC ABG pCO2 POC ABG pO2 ABG pO2 ABG Hemoglobin ABG Oxyhemoglobin ABG Sodium ABG Potassium ABG Chloride ABG Glucose Carboxyhemoglobin Sodium 126 L D Potassium Chloride 91.9 L Carbon Dioxide 20 L D BUN Creatinine 0.4 L Glucose 274 H POC Glucose 242 H 346 H Lactic Acid Calcium Phosphorus Magnesium Ferritin AST ALT Alkaline Phosphatase Lactate Dehydrogenase Troponin T C-Reactive Protein Total Protein Albumin HDL Cholesterol Arterial Blood Glucose Arterial Blood Ionized Calcium Urine WBC (Auto) Urine Creatinine 05/30/21 05/30/21 05/30/21 11:19 11:19 11:19 WBC 18.9 H RBC 3.36 L Hgb Hct MCV 102 H MCH 33 H MCHC RDW 15.5 H [place] % (Auto) [place] # (Auto) Seg Neutrophils % Seg Neuts % (Manual) Lymphocytes % (Manual) Monocytes % (Manual) Seg Neutrophils # Seg Neutrophils # Man Lymphocytes # (Manual) Monocytes # (Manual) PT APTT D-Dimer Heparin Anti-Xa Level < 0.10 L ABG pH POC ABG pCO2 POC ABG pO2 ABG pO2 ABG Hemoglobin ABG Oxyhemoglobin ABG Sodium ABG Potassium ABG Chloride ABG Glucose Carboxyhemoglobin Sodium 124 L Potassium Chloride Carbon Dioxide BUN Creatinine Glucose POC Glucose Lactic Acid Calcium Phosphorus Magnesium Ferritin AST ALT Alkaline Phosphatase Lactate Dehydrogenase Troponin T C-Reactive Protein Total Protein Albumin HDL Cholesterol Arterial Blood Glucose Arterial Blood Ionized Calcium Urine WBC (Auto) Urine Creatinine 05/30/21 05/30/21 05/31/21 17:02 23:27 03:37 WBC RBC Hgb Hct MCV MCH MCHC RDW [place] % (Auto) [place] # (Auto) Seg Neutrophils % Seg Neuts % (Manual) Lymphocytes % (Manual) Monocytes % (Manual) Seg Neutrophils # Seg Neutrophils # Man Lymphocytes # (Manual) Monocytes # (Manual) PT APTT D-Dimer Heparin Anti-Xa Level ABG pH POC ABG pCO2 POC ABG pO2 ABG pO2 ABG Hemoglobin 11.6 L ABG Oxyhemoglobin ABG Sodium 130.0 L ABG Potassium ABG Chloride 95.0 L ABG Glucose 292 H Carboxyhemoglobin Sodium Potassium Chloride Carbon Dioxide BUN Creatinine Glucose POC Glucose 270 H 237 H Lactic Acid Calcium Phosphorus Magnesium Ferritin AST ALT Alkaline Phosphatase Lactate Dehydrogenase Troponin T C-Reactive Protein Total Protein Albumin HDL Cholesterol Arterial Blood Glucose 292 H Arterial Blood Ionized Calcium Urine WBC (Auto) Urine Creatinine 05/31/21 05/31/21 05/31/21 04:00 04:00 05:20 WBC 20.9 H RBC 3.13 L Hgb Hct MCV 99 H MCH 34 H MCHC RDW [place] % (Auto) [place] # (Auto) Seg Neutrophils % Seg Neuts % (Manual) 81.0 H Lymphocytes % (Manual) 8.0 L Monocytes % (Manual) 9.0 H Seg Neutrophils # Seg Neutrophils # Man 16.9 H Lymphocytes # (Manual) Monocytes # (Manual) 1.9 H PT APTT D-Dimer Heparin Anti-Xa Level ABG pH POC ABG pCO2 POC ABG pO2 ABG pO2 ABG Hemoglobin ABG Oxyhemoglobin ABG Sodium ABG Potassium ABG Chloride ABG Glucose Carboxyhemoglobin Sodium 133 L D Potassium Chloride 95.4 L Carbon Dioxide 21 L BUN 30 H Creatinine 0.5 L Glucose 305 H POC Glucose 269 H Lactic Acid Calcium Phosphorus Magnesium Ferritin AST ALT Alkaline Phosphatase Lactate Dehydrogenase Troponin T C-Reactive Protein Total Protein Albumin HDL Cholesterol Arterial Blood Glucose Arterial Blood Ionized Calcium Urine WBC (Auto) Urine Creatinine 05/31/21 05/31/21 05/31/21 11:40 18:16 23:25 WBC RBC Hgb Hct MCV MCH MCHC RDW [place] % (Auto) [place] # (Auto) Seg Neutrophils % Seg Neuts % (Manual) Lymphocytes % (Manual) Monocytes % (Manual) Seg Neutrophils # Seg Neutrophils # Man Lymphocytes # (Manual) Monocytes # (Manual) PT APTT D-Dimer Heparin Anti-Xa Level ABG pH POC ABG pCO2 POC ABG pO2 ABG pO2 ABG Hemoglobin ABG Oxyhemoglobin ABG Sodium ABG Potassium ABG Chloride ABG Glucose Carboxyhemoglobin Sodium Potassium Chloride Carbon Dioxide BUN Creatinine Glucose POC Glucose 364 H 250 H 231 H Lactic Acid Calcium Phosphorus Magnesium Ferritin AST ALT Alkaline Phosphatase Lactate Dehydrogenase Troponin T C-Reactive Protein Total Protein Albumin HDL Cholesterol Arterial Blood Glucose Arterial Blood Ionized Calcium Urine WBC (Auto) Urine Creatinine 06/01/21 06/01/21 06/01/21 04:03 04:58 04:58 WBC 20.7 H RBC 3.20 L Hgb Hct MCV 99 H MCH 34 H MCHC RDW [place] % (Auto) [place] # (Auto) Seg Neutrophils % Seg Neuts % (Manual) 82.0 H Lymphocytes % (Manual) 9.0 L Monocytes % (Manual) Seg Neutrophils # Seg Neutrophils # Man 17.0 H Lymphocytes # (Manual) Monocytes # (Manual) 1.4 H PT APTT D-Dimer Heparin Anti-Xa Level 1.18 H ABG pH 7.520 H POC ABG pCO2 POC ABG pO2 66.0 L ABG pO2 ABG Hemoglobin ABG Oxyhemoglobin 92.5 L ABG Sodium 133.6 L ABG Potassium ABG Chloride ABG Glucose 250 H Carboxyhemoglobin Sodium Potassium Chloride Carbon Dioxide BUN Creatinine Glucose POC Glucose Lactic Acid Calcium Phosphorus Magnesium Ferritin AST ALT Alkaline Phosphatase Lactate Dehydrogenase Troponin T C-Reactive Protein Total Protein Albumin HDL Cholesterol Arterial Blood Glucose 250 H Arterial Blood Ionized Calcium 4.4 L Urine WBC (Auto) Urine Creatinine 06/01/21 06/01/21 06/01/21 04:58 05:29 11:39 WBC RBC Hgb Hct MCV MCH MCHC RDW [place] % (Auto) [place] # (Auto) Seg Neutrophils % Seg Neuts % (Manual) Lymphocytes % (Manual) Monocytes % (Manual) Seg Neutrophils # Seg Neutrophils # Man Lymphocytes # (Manual) Monocytes # (Manual) PT APTT D-Dimer Heparin Anti-Xa Level ABG pH POC ABG pCO2 POC ABG pO2 ABG pO2 ABG Hemoglobin ABG Oxyhemoglobin ABG Sodium ABG Potassium ABG Chloride ABG Glucose Carboxyhemoglobin Sodium 131 L Potassium Chloride 95.7 L Carbon Dioxide BUN 30 H Creatinine 0.5 L Glucose 241 H POC Glucose 215 H 299 H Lactic Acid Calcium Phosphorus Magnesium Ferritin AST ALT Alkaline Phosphatase Lactate Dehydrogenase Troponin T C-Reactive Protein Total Protein Albumin HDL Cholesterol Arterial Blood Glucose Arterial Blood Ionized Calcium Urine WBC (Auto) Urine Creatinine 06/01/21 06/02/21 06/02/21 18:14 00:12 02:25 WBC 17.4 H RBC 3.09 L Hgb Hct MCV 101 H MCH 34 H MCHC RDW 15.5 H [place] % (Auto) [place] # (Auto) Seg Neutrophils % Seg Neuts % (Manual) Lymphocytes % (Manual) Monocytes % (Manual) Seg Neutrophils # Seg Neutrophils # Man Lymphocytes # (Manual) Monocytes # (Manual) PT APTT D-Dimer Heparin Anti-Xa Level ABG pH POC ABG pCO2 POC ABG pO2 ABG pO2 ABG Hemoglobin ABG Oxyhemoglobin ABG Sodium ABG Potassium ABG Chloride ABG Glucose Carboxyhemoglobin Sodium Potassium Chloride Carbon Dioxide BUN Creatinine Glucose POC Glucose 215 H 175 H Lactic Acid Calcium Phosphorus Magnesium Ferritin AST ALT Alkaline Phosphatase Lactate Dehydrogenase Troponin T C-Reactive Protein Total Protein Albumin HDL Cholesterol Arterial Blood Glucose Arterial Blood Ionized Calcium Urine WBC (Auto) Urine Creatinine 06/02/21 06/02/21 06/02/21 02:25 04:13 04:58 WBC RBC Hgb Hct MCV MCH MCHC RDW [place] % (Auto) [place] # (Auto) Seg Neutrophils % Seg Neuts % (Manual) Lymphocytes % (Manual) Monocytes % (Manual) Seg Neutrophils # Seg Neutrophils # Man Lymphocytes # (Manual) Monocytes # (Manual) PT APTT D-Dimer Heparin Anti-Xa Level ABG pH 7.481 H POC ABG pCO2 POC ABG pO2 80.0 L ABG pO2 ABG Hemoglobin 11.1 L ABG Oxyhemoglobin ABG Sodium 131.9 L ABG Potassium ABG Chloride ABG Glucose 231 H Carboxyhemoglobin 0.2 L Sodium 134 L Potassium Chloride 95.8 L Carbon Dioxide BUN 31 H Creatinine 0.5 L Glucose 168 H POC Glucose 230 H Lactic Acid Calcium Phosphorus Magnesium Ferritin AST ALT Alkaline Phosphatase Lactate Dehydrogenase Troponin T C-Reactive Protein Total Protein Albumin HDL Cholesterol Arterial Blood Glucose 231 H Arterial Blood Ionized Calcium Urine WBC (Auto) Urine Creatinine 06/02/21 06/02/21 06/02/21 11:27 17:47 23:53 WBC RBC Hgb Hct MCV MCH MCHC RDW [place] % (Auto) [place] # (Auto) Seg Neutrophils % Seg Neuts % (Manual) Lymphocytes % (Manual) Monocytes % (Manual) Seg Neutrophils # Seg Neutrophils # Man Lymphocytes # (Manual) Monocytes # (Manual) PT APTT D-Dimer Heparin Anti-Xa Level 0.80 H ABG pH POC ABG pCO2 POC ABG pO2 ABG pO2 ABG Hemoglobin ABG Oxyhemoglobin ABG Sodium ABG Potassium ABG Chloride ABG Glucose Carboxyhemoglobin Sodium Potassium Chloride Carbon Dioxide BUN Creatinine Glucose POC Glucose 259 H 297 H Lactic Acid Calcium Phosphorus Magnesium Ferritin AST ALT Alkaline Phosphatase Lactate Dehydrogenase Troponin T C-Reactive Protein Total Protein Albumin HDL Cholesterol Arterial Blood Glucose Arterial Blood Ionized Calcium Urine WBC (Auto) Urine Creatinine 06/03/21 06/03/21 06/03/21 00:05 05:23 09:10 WBC RBC Hgb Hct MCV MCH MCHC RDW [place] % (Auto) [place] # (Auto) Seg Neutrophils % Seg Neuts % (Manual) Lymphocytes % (Manual) Monocytes % (Manual) Seg Neutrophils # Seg Neutrophils # Man Lymphocytes # (Manual) Monocytes # (Manual) PT APTT D-Dimer Heparin Anti-Xa Level 0.84 H ABG pH POC ABG pCO2 POC ABG pO2 ABG pO2 ABG Hemoglobin ABG Oxyhemoglobin ABG Sodium ABG Potassium ABG Chloride ABG Glucose Carboxyhemoglobin Sodium Potassium Chloride Carbon Dioxide BUN Creatinine Glucose POC Glucose 268 H 170 H Lactic Acid Calcium Phosphorus Magnesium Ferritin AST ALT Alkaline Phosphatase Lactate Dehydrogenase Troponin T C-Reactive Protein Total Protein Albumin HDL Cholesterol Arterial Blood Glucose Arterial Blood Ionized Calcium Urine WBC (Auto) Urine Creatinine 06/03/21 06/03/21 06/03/21 12:06 20:22 23:30 WBC RBC Hgb Hct MCV MCH MCHC RDW [place] % (Auto) [place] # (Auto) Seg Neutrophils % Seg Neuts % (Manual) Lymphocytes % (Manual) Monocytes % (Manual) Seg Neutrophils # Seg Neutrophils # Man Lymphocytes # (Manual) Monocytes # (Manual) PT APTT D-Dimer Heparin Anti-Xa Level ABG pH POC ABG pCO2 POC ABG pO2 ABG pO2 ABG Hemoglobin ABG Oxyhemoglobin ABG Sodium ABG Potassium ABG Chloride ABG Glucose Carboxyhemoglobin Sodium Potassium Chloride Carbon Dioxide BUN Creatinine Glucose POC Glucose 275 H 260 H 215 H Lactic Acid Calcium Phosphorus Magnesium Ferritin AST ALT Alkaline Phosphatase Lactate Dehydrogenase Troponin T C-Reactive Protein Total Protein Albumin HDL Cholesterol Arterial Blood Glucose Arterial Blood Ionized Calcium Urine WBC (Auto) Urine Creatinine 06/04/21 06/04/21 06/04/21 05:03 05:57 05:57 WBC 17.8 H RBC 2.83 L Hgb 9.6 L Hct 28.4 L MCV 100 H MCH 34 H MCHC RDW 15.5 H [place] % (Auto) [place] # (Auto) Seg Neutrophils % Seg Neuts % (Manual) 83.0 H Lymphocytes % (Manual) 4.0 L Monocytes % (Manual) Seg Neutrophils # Seg Neutrophils # Man 14.8 H Lymphocytes # (Manual) 0.7 L Monocytes # (Manual) 1.1 H PT APTT D-Dimer Heparin Anti-Xa Level ABG pH POC ABG pCO2 POC ABG pO2 ABG pO2 ABG Hemoglobin ABG Oxyhemoglobin ABG Sodium ABG Potassium ABG Chloride ABG Glucose Carboxyhemoglobin Sodium 135 L Potassium Chloride 96.3 L Carbon Dioxide BUN 51 H Creatinine Glucose 275 H POC Glucose 257 H Lactic Acid Calcium Phosphorus Magnesium Ferritin AST ALT Alkaline Phosphatase Lactate Dehydrogenase Troponin T C-Reactive Protein Total Protein Albumin HDL Cholesterol Arterial Blood Glucose Arterial Blood Ionized Calcium Urine WBC (Auto) Urine Creatinine 06/04/21 06/04/21 06/04/21 09:48 11:08 17:33 WBC RBC Hgb Hct MCV MCH MCHC RDW [place] % (Auto) [place] # (Auto) Seg Neutrophils % Seg Neuts % (Manual) Lymphocytes % (Manual) Monocytes % (Manual) Seg Neutrophils # Seg Neutrophils # Man Lymphocytes # (Manual) Monocytes # (Manual) PT APTT D-Dimer Heparin Anti-Xa Level ABG pH POC ABG pCO2 POC ABG pO2 ABG pO2 ABG Hemoglobin ABG Oxyhemoglobin ABG Sodium ABG Potassium ABG Chloride ABG Glucose Carboxyhemoglobin Sodium Potassium Chloride Carbon Dioxide BUN Creatinine Glucose POC Glucose 198 H 234 H 247 H Lactic Acid Calcium Phosphorus Magnesium Ferritin AST ALT Alkaline Phosphatase Lactate Dehydrogenase Troponin T C-Reactive Protein Total Protein Albumin HDL Cholesterol Arterial Blood Glucose Arterial Blood Ionized Calcium Urine WBC (Auto) Urine Creatinine 06/04/21 06/05/21 06/05/21 23:30 05:38 11:24 WBC RBC Hgb Hct MCV MCH MCHC RDW [place] % (Auto) [place] # (Auto) Seg Neutrophils % Seg Neuts % (Manual) Lymphocytes % (Manual) Monocytes % (Manual) Seg Neutrophils # Seg Neutrophils # Man Lymphocytes # (Manual) Monocytes # (Manual) PT APTT D-Dimer Heparin Anti-Xa Level ABG pH POC ABG pCO2 POC ABG pO2 ABG pO2 ABG Hemoglobin ABG Oxyhemoglobin ABG Sodium ABG Potassium ABG Chloride ABG Glucose Carboxyhemoglobin Sodium Potassium Chloride Carbon Dioxide BUN Creatinine Glucose POC Glucose 192 H 192 H 287 H Lactic Acid Calcium Phosphorus Magnesium Ferritin AST ALT Alkaline Phosphatase Lactate Dehydrogenase Troponin T C-Reactive Protein Total Protein Albumin HDL Cholesterol Arterial Blood Glucose Arterial Blood Ionized Calcium Urine WBC (Auto) Urine Creatinine 06/05/21 06/05/21 06/05/21 12:20 12:20 12:20 WBC 16.2 H RBC 2.56 L Hgb 8.8 L Hct 25.2 L MCV 98 H MCH 35 H MCHC 35 H RDW 15.3 H [place] % (Auto) [place] # (Auto) Seg Neutrophils % Seg Neuts % (Manual) Lymphocytes % (Manual) Monocytes % (Manual) Seg Neutrophils # Seg Neutrophils # Man Lymphocytes # (Manual) Monocytes # (Manual) PT APTT 72.2 H* D-Dimer Heparin Anti-Xa Level ABG pH POC ABG pCO2 POC ABG pO2 ABG pO2 ABG Hemoglobin ABG Oxyhemoglobin ABG Sodium ABG Potassium ABG Chloride ABG Glucose Carboxyhemoglobin Sodium 133 L Potassium Chloride 95.3 L Carbon Dioxide BUN 57 H Creatinine Glucose 313 H POC Glucose Lactic Acid Calcium Phosphorus Magnesium Ferritin AST 90 H ALT 79 H Alkaline Phosphatase 262 H Lactate Dehydrogenase Troponin T C-Reactive Protein Total Protein Albumin 2.7 L HDL Cholesterol Arterial Blood Glucose Arterial Blood Ionized Calcium Urine WBC (Auto) Urine Creatinine 06/05/21 06/05/21 06/05/21 17:50 22:57 23:36 WBC RBC Hgb Hct MCV MCH MCHC RDW [place] % (Auto) [place] # (Auto) Seg Neutrophils % Seg Neuts % (Manual) Lymphocytes % (Manual) Monocytes % (Manual) Seg Neutrophils # Seg Neutrophils # Man Lymphocytes # (Manual) Monocytes # (Manual) PT APTT D-Dimer Heparin Anti-Xa Level 0.28 L ABG pH POC ABG pCO2 POC ABG pO2 ABG pO2 ABG Hemoglobin ABG Oxyhemoglobin ABG Sodium ABG Potassium ABG Chloride ABG Glucose Carboxyhemoglobin Sodium Potassium Chloride Carbon Dioxide BUN Creatinine Glucose POC Glucose 275 H 223 H Lactic Acid Calcium Phosphorus Magnesium Ferritin AST ALT Alkaline Phosphatase Lactate Dehydrogenase Troponin T C-Reactive Protein Total Protein Albumin HDL Cholesterol Arterial Blood Glucose Arterial Blood Ionized Calcium Urine WBC (Auto) Urine Creatinine 06/06/21 06/06/21 06/06/21 04:57 04:57 05:02 WBC 15.7 H RBC 2.77 L Hgb 9.4 L Hct 27.2 L MCV 98 H MCH 34 H MCHC RDW 15.4 H [place] % (Auto) [place] # (Auto) Seg Neutrophils % Seg Neuts % (Manual) Lymphocytes % (Manual) Monocytes % (Manual) Seg Neutrophils # Seg Neutrophils # Man Lymphocytes # (Manual) Monocytes # (Manual) PT APTT D-Dimer Heparin Anti-Xa Level ABG pH POC ABG pCO2 POC ABG pO2 ABG pO2 ABG Hemoglobin ABG Oxyhemoglobin ABG Sodium ABG Potassium ABG Chloride ABG Glucose Carboxyhemoglobin Sodium Potassium 5.7 H Chloride Carbon Dioxide BUN 57 H Creatinine Glucose 245 H POC Glucose 217 H Lactic Acid Calcium Phosphorus Magnesium Ferritin AST 99 H ALT 136 H Alkaline Phosphatase 312 H Lactate Dehydrogenase Troponin T C-Reactive Protein Total Protein 6.1 L Albumin 3.1 L HDL Cholesterol Arterial Blood Glucose Arterial Blood Ionized Calcium Urine WBC (Auto) Urine Creatinine 06/06/21 06/06/21 06/06/21 11:37 17:34 18:09 WBC RBC Hgb Hct MCV MCH MCHC RDW [place] % (Auto) [place] # (Auto) Seg Neutrophils % Seg Neuts % (Manual) Lymphocytes % (Manual) Monocytes % (Manual) Seg Neutrophils # Seg Neutrophils # Man Lymphocytes # (Manual) Monocytes # (Manual) PT APTT D-Dimer Heparin Anti-Xa Level ABG pH POC ABG pCO2 POC ABG pO2 ABG pO2 ABG Hemoglobin ABG Oxyhemoglobin ABG Sodium ABG Potassium ABG Chloride ABG Glucose Carboxyhemoglobin Sodium Potassium 5.2 H Chloride Carbon Dioxide BUN 48 H Creatinine Glucose 245 H POC Glucose 251 H 217 H Lactic Acid Calcium Phosphorus Magnesium Ferritin AST ALT Alkaline Phosphatase Lactate Dehydrogenase Troponin T C-Reactive Protein Total Protein Albumin HDL Cholesterol Arterial Blood Glucose Arterial Blood Ionized Calcium Urine WBC (Auto) Urine Creatinine 06/06/21 06/07/21 06/07/21 23:53 04:45 04:45 WBC 21.5 H RBC 2.71 L Hgb 9.0 L Hct 26.9 L MCV 99 H MCH 33 H MCHC RDW 15.3 H [place] % (Auto) [place] # (Auto) Seg Neutrophils % Seg Neuts % (Manual) Lymphocytes % (Manual) Monocytes % (Manual) Seg Neutrophils # Seg Neutrophils # Man Lymphocytes # (Manual) Monocytes # (Manual) PT APTT D-Dimer Heparin Anti-Xa Level 0.10 L ABG pH POC ABG pCO2 POC ABG pO2 ABG pO2 ABG Hemoglobin ABG Oxyhemoglobin ABG Sodium ABG Potassium ABG Chloride ABG Glucose Carboxyhemoglobin Sodium Potassium Chloride Carbon Dioxide BUN Creatinine Glucose POC Glucose 224 H Lactic Acid Calcium Phosphorus Magnesium Ferritin AST ALT Alkaline Phosphatase Lactate Dehydrogenase Troponin T C-Reactive Protein Total Protein Albumin HDL Cholesterol Arterial Blood Glucose Arterial Blood Ionized Calcium Urine WBC (Auto) Urine Creatinine 06/07/21 06/07/21 06/07/21 04:45 05:11 11:50 WBC RBC Hgb Hct MCV MCH MCHC RDW [place] % (Auto) [place] # (Auto) Seg Neutrophils % Seg Neuts % (Manual) Lymphocytes % (Manual) Monocytes % (Manual) Seg Neutrophils # Seg Neutrophils # Man Lymphocytes # (Manual) Monocytes # (Manual) PT APTT D-Dimer Heparin Anti-Xa Level ABG pH POC ABG pCO2 POC ABG pO2 ABG pO2 ABG Hemoglobin ABG Oxyhemoglobin ABG Sodium ABG Potassium ABG Chloride ABG Glucose Carboxyhemoglobin Sodium Potassium 5.4 H Chloride Carbon Dioxide BUN 55 H Creatinine Glucose 178 H POC Glucose 156 H 118 H Lactic Acid Calcium Phosphorus Magnesium Ferritin AST ALT Alkaline Phosphatase Lactate Dehydrogenase Troponin T C-Reactive Protein Total Protein Albumin HDL Cholesterol Arterial Blood Glucose Arterial Blood Ionized Calcium Urine WBC (Auto) Urine Creatinine 06/07/21 06/07/21 06/07/21 14:52 17:45 20:43 WBC RBC Hgb Hct MCV MCH MCHC RDW [place] % (Auto) [place] # (Auto) Seg Neutrophils % Seg Neuts % (Manual) Lymphocytes % (Manual) Monocytes % (Manual) Seg Neutrophils # Seg Neutrophils # Man Lymphocytes # (Manual) Monocytes # (Manual) PT APTT D-Dimer Heparin Anti-Xa Level 0.73 H ABG pH POC ABG pCO2 POC ABG pO2 ABG pO2 ABG Hemoglobin ABG Oxyhemoglobin ABG Sodium ABG Potassium ABG Chloride ABG Glucose Carboxyhemoglobin Sodium Potassium Chloride Carbon Dioxide BUN Creatinine Glucose POC Glucose 164 H Lactic Acid Calcium Phosphorus Magnesium Ferritin AST ALT Alkaline Phosphatase Lactate Dehydrogenase Troponin T C-Reactive Protein 28.90 H Total Protein Albumin HDL Cholesterol Arterial Blood Glucose Arterial Blood Ionized Calcium Urine WBC (Auto) Urine Creatinine 06/07/21 06/08/21 06/08/21 23:15 04:25 04:25 WBC 15.8 H RBC 2.58 L Hgb 8.6 L Hct 25.7 L MCV 100 H MCH 33 H MCHC RDW [place] % (Auto) [place] # (Auto) Seg Neutrophils % Seg Neuts % (Manual) 76.0 H Lymphocytes % (Manual) 6.0 L Monocytes % (Manual) 8.0 H Seg Neutrophils # Seg Neutrophils # Man 12.0 H Lymphocytes # (Manual) 0.9 L Monocytes # (Manual) 1.3 H PT APTT D-Dimer Heparin Anti-Xa Level ABG pH POC ABG pCO2 POC ABG pO2 ABG pO2 ABG Hemoglobin ABG Oxyhemoglobin ABG Sodium ABG Potassium ABG Chloride ABG Glucose Carboxyhemoglobin Sodium Potassium Chloride Carbon Dioxide BUN 65 H Creatinine Glucose 205 H POC Glucose 236 H Lactic Acid Calcium Phosphorus Magnesium Ferritin AST ALT Alkaline Phosphatase Lactate Dehydrogenase Troponin T C-Reactive Protein Total Protein Albumin HDL Cholesterol Arterial Blood Glucose Arterial Blood Ionized Calcium Urine WBC (Auto) Urine Creatinine 06/08/21 06/08/21 06/08/21 05:36 11:18 17:41 WBC RBC Hgb Hct MCV MCH MCHC RDW [place] % (Auto) [place] # (Auto) Seg Neutrophils % Seg Neuts % (Manual) Lymphocytes % (Manual) Monocytes % (Manual) Seg Neutrophils # Seg Neutrophils # Man Lymphocytes # (Manual) Monocytes # (Manual) PT APTT D-Dimer Heparin Anti-Xa Level ABG pH POC ABG pCO2 POC ABG pO2 ABG pO2 ABG Hemoglobin ABG Oxyhemoglobin ABG Sodium ABG Potassium ABG Chloride ABG Glucose Carboxyhemoglobin Sodium Potassium Chloride Carbon Dioxide BUN Creatinine Glucose POC Glucose 185 H 203 H 173 H Lactic Acid Calcium Phosphorus Magnesium Ferritin AST ALT Alkaline Phosphatase Lactate Dehydrogenase Troponin T C-Reactive Protein Total Protein Albumin HDL Cholesterol Arterial Blood Glucose Arterial Blood Ionized Calcium Urine WBC (Auto) Urine Creatinine 06/08/21 06/09/21 06/09/21 23:34 05:16 05:20 WBC 15.0 H RBC 2.54 L Hgb 8.5 L Hct 25.2 L MCV 99 H MCH 33 H MCHC RDW [place] % (Auto) [place] # (Auto) Seg Neutrophils % Seg Neuts % (Manual) Lymphocytes % (Manual) Monocytes % (Manual) Seg Neutrophils # Seg Neutrophils # Man Lymphocytes # (Manual) Monocytes # (Manual) PT APTT D-Dimer Heparin Anti-Xa Level ABG pH POC ABG pCO2 POC ABG pO2 ABG pO2 ABG Hemoglobin ABG Oxyhemoglobin ABG Sodium ABG Potassium ABG Chloride ABG Glucose Carboxyhemoglobin Sodium Potassium Chloride Carbon Dioxide BUN Creatinine Glucose POC Glucose 200 H 154 H Lactic Acid Calcium Phosphorus Magnesium Ferritin AST ALT Alkaline Phosphatase Lactate Dehydrogenase Troponin T C-Reactive Protein Total Protein Albumin HDL Cholesterol Arterial Blood Glucose Arterial Blood Ionized Calcium Urine WBC (Auto) Urine Creatinine 06/09/21 06/09/21 06/09/21 05:20 11:40 17:09 WBC RBC Hgb Hct MCV MCH MCHC RDW [place] % (Auto) [place] # (Auto) Seg Neutrophils % Seg Neuts % (Manual) Lymphocytes % (Manual) Monocytes % (Manual) Seg Neutrophils # Seg Neutrophils # Man Lymphocytes # (Manual) Monocytes # (Manual) PT APTT D-Dimer Heparin Anti-Xa Level ABG pH POC ABG pCO2 POC ABG pO2 ABG pO2 ABG Hemoglobin ABG Oxyhemoglobin ABG Sodium ABG Potassium ABG Chloride ABG Glucose Carboxyhemoglobin Sodium Potassium 5.2 H Chloride Carbon Dioxide BUN 69 H Creatinine Glucose 163 H POC Glucose 232 H 137 H Lactic Acid Calcium Phosphorus Magnesium Ferritin AST ALT Alkaline Phosphatase Lactate Dehydrogenase Troponin T C-Reactive Protein Total Protein Albumin HDL Cholesterol Arterial Blood Glucose Arterial Blood Ionized Calcium Urine WBC (Auto) Urine Creatinine 06/09/21 06/10/21 06/10/21 23:31 04:42 04:42 WBC 14.5 H RBC 2.41 L Hgb 8.2 L Hct 24.0 L MCV 100 H MCH 34 H MCHC RDW 15.8 H [place] % (Auto) [place] # (Auto) Seg Neutrophils % Seg Neuts % (Manual) Lymphocytes % (Manual) Monocytes % (Manual) Seg Neutrophils # Seg Neutrophils # Man Lymphocytes # (Manual) Monocytes # (Manual) PT APTT D-Dimer Heparin Anti-Xa Level ABG pH POC ABG pCO2 POC ABG pO2 ABG pO2 ABG Hemoglobin ABG Oxyhemoglobin ABG Sodium ABG Potassium ABG Chloride ABG Glucose Carboxyhemoglobin Sodium 146 H D Potassium 3.4 L D Chloride Carbon Dioxide BUN 62 H Creatinine Glucose 174 H POC Glucose 162 H Lactic Acid Calcium Phosphorus Magnesium Ferritin AST ALT Alkaline Phosphatase Lactate Dehydrogenase Troponin T C-Reactive Protein Total Protein Albumin HDL Cholesterol Arterial Blood Glucose Arterial Blood Ionized Calcium Urine WBC (Auto) Urine Creatinine 06/10/21 06/10/21 06/10/21 05:36 11:43 18:24 WBC RBC Hgb Hct MCV MCH MCHC RDW [place] % (Auto) [place] # (Auto) Seg Neutrophils % Seg Neuts % (Manual) Lymphocytes % (Manual) Monocytes % (Manual) Seg Neutrophils # Seg Neutrophils # Man Lymphocytes # (Manual) Monocytes # (Manual) PT APTT D-Dimer Heparin Anti-Xa Level ABG pH POC ABG pCO2 POC ABG pO2 ABG pO2 ABG Hemoglobin ABG Oxyhemoglobin ABG Sodium ABG Potassium ABG Chloride ABG Glucose Carboxyhemoglobin Sodium Potassium Chloride Carbon Dioxide BUN Creatinine Glucose POC Glucose 149 H 183 H 139 H Lactic Acid Calcium Phosphorus Magnesium Ferritin AST ALT Alkaline Phosphatase Lactate Dehydrogenase Troponin T C-Reactive Protein Total Protein Albumin HDL Cholesterol Arterial Blood Glucose Arterial Blood Ionized Calcium Urine WBC (Auto) Urine Creatinine 06/10/21 06/11/21 06/11/21 23:32 04:17 05:22 WBC RBC Hgb Hct MCV MCH MCHC RDW [place] % (Auto) [place] # (Auto) Seg Neutrophils % Seg Neuts % (Manual) Lymphocytes % (Manual) Monocytes % (Manual) Seg Neutrophils # Seg Neutrophils # Man Lymphocytes # (Manual) Monocytes # (Manual) PT APTT D-Dimer Heparin Anti-Xa Level 0.84 H ABG pH POC ABG pCO2 POC ABG pO2 ABG pO2 ABG Hemoglobin ABG Oxyhemoglobin ABG Sodium ABG Potassium ABG Chloride ABG Glucose Carboxyhemoglobin Sodium Potassium Chloride Carbon Dioxide BUN Creatinine Glucose POC Glucose 149 H 138 H Lactic Acid Calcium Phosphorus Magnesium Ferritin AST ALT Alkaline Phosphatase Lactate Dehydrogenase Troponin T C-Reactive Protein Total Protein Albumin HDL Cholesterol Arterial Blood Glucose Arterial Blood Ionized Calcium Urine WBC (Auto) Urine Creatinine 06/11/21 06/11/21 06/12/21 11:26 23:56 04:44 WBC 15.5 H RBC 2.59 L Hgb 8.6 L Hct 25.8 L MCV 100 H MCH 33 H MCHC RDW 15.3 H [place] % (Auto) [place] # (Auto) Seg Neutrophils % Seg Neuts % (Manual) Lymphocytes % (Manual) Monocytes % (Manual) Seg Neutrophils # Seg Neutrophils # Man Lymphocytes # (Manual) Monocytes # (Manual) PT APTT D-Dimer Heparin Anti-Xa Level ABG pH POC ABG pCO2 POC ABG pO2 ABG pO2 ABG Hemoglobin ABG Oxyhemoglobin ABG Sodium ABG Potassium ABG Chloride ABG Glucose Carboxyhemoglobin Sodium Potassium Chloride Carbon Dioxide BUN Creatinine Glucose POC Glucose 198 H 199 H Lactic Acid Calcium Phosphorus Magnesium Ferritin AST ALT Alkaline Phosphatase Lactate Dehydrogenase Troponin T C-Reactive Protein Total Protein Albumin HDL Cholesterol Arterial Blood Glucose Arterial Blood Ionized Calcium Urine WBC (Auto) Urine Creatinine 06/12/21 06/12/21 06/12/21 04:44 04:44 05:29 WBC RBC Hgb Hct MCV MCH MCHC RDW [place] % (Auto) [place] # (Auto) Seg Neutrophils % Seg Neuts % (Manual) Lymphocytes % (Manual) Monocytes % (Manual) Seg Neutrophils # Seg Neutrophils # Man Lymphocytes # (Manual) Monocytes # (Manual) PT APTT D-Dimer Heparin Anti-Xa Level ABG pH POC ABG pCO2 POC ABG pO2 ABG pO2 ABG Hemoglobin ABG Oxyhemoglobin ABG Sodium ABG Potassium ABG Chloride ABG Glucose Carboxyhemoglobin Sodium 148 H Potassium Chloride Carbon Dioxide BUN 49 H 51 H Creatinine Glucose 222 H 223 H POC Glucose 193 H Lactic Acid Calcium Phosphorus Magnesium 3.20 H Ferritin AST 81 H ALT 83 H Alkaline Phosphatase 215 H Lactate Dehydrogenase Troponin T C-Reactive Protein Total Protein Albumin 3.2 L HDL Cholesterol Arterial Blood Glucose Arterial Blood Ionized Calcium Urine WBC (Auto) Urine Creatinine 06/12/21 06/12/21 06/12/21 11:21 17:55 23:23 WBC RBC Hgb Hct MCV MCH MCHC RDW [place] % (Auto) [place] # (Auto) Seg Neutrophils % Seg Neuts % (Manual) Lymphocytes % (Manual) Monocytes % (Manual) Seg Neutrophils # Seg Neutrophils # Man Lymphocytes # (Manual) Monocytes # (Manual) PT APTT D-Dimer Heparin Anti-Xa Level ABG pH POC ABG pCO2 POC ABG pO2 ABG pO2 ABG Hemoglobin ABG Oxyhemoglobin ABG Sodium ABG Potassium ABG Chloride ABG Glucose Carboxyhemoglobin Sodium Potassium Chloride Carbon Dioxide BUN Creatinine Glucose POC Glucose 185 H 210 H 211 H Lactic Acid Calcium Phosphorus Magnesium Ferritin AST ALT Alkaline Phosphatase Lactate Dehydrogenase Troponin T C-Reactive Protein Total Protein Albumin HDL Cholesterol Arterial Blood Glucose Arterial Blood Ionized Calcium Urine WBC (Auto) Urine Creatinine 06/13/21 06/13/21 06/13/21 04:34 04:34 05:17 WBC 17.2 H RBC 2.56 L Hgb 8.6 L Hct 26.1 L MCV 102 H MCH 34 H MCHC RDW [place] % (Auto) [place] # (Auto) Seg Neutrophils % Seg Neuts % (Manual) Lymphocytes % (Manual) Monocytes % (Manual) Seg Neutrophils # Seg Neutrophils # Man Lymphocytes # (Manual) Monocytes # (Manual) PT APTT D-Dimer Heparin Anti-Xa Level ABG pH POC ABG pCO2 POC ABG pO2 ABG pO2 ABG Hemoglobin ABG Oxyhemoglobin ABG Sodium ABG Potassium ABG Chloride ABG Glucose Carboxyhemoglobin Sodium 149 H Potassium 5.1 H Chloride Carbon Dioxide BUN 52 H Creatinine 1.6 H Glucose 231 H POC Glucose 207 H Lactic Acid Calcium Phosphorus Magnesium Ferritin AST 69 H ALT 74 H Alkaline Phosphatase 197 H Lactate Dehydrogenase Troponin T C-Reactive Protein Total Protein Albumin 3.0 L HDL Cholesterol Arterial Blood Glucose Arterial Blood Ionized Calcium Urine WBC (Auto) Urine Creatinine 06/13/21 06/13/21 06/13/21 10:44 11:07 12:07 WBC RBC Hgb Hct MCV MCH MCHC RDW [place] % (Auto) [place] # (Auto) Seg Neutrophils % Seg Neuts % (Manual) Lymphocytes % (Manual) Monocytes % (Manual) Seg Neutrophils # Seg Neutrophils # Man Lymphocytes # (Manual) Monocytes # (Manual) PT APTT D-Dimer Heparin Anti-Xa Level < 0.10 L ABG pH 7.455 H POC ABG pCO2 POC ABG pO2 ABG pO2 ABG Hemoglobin 8.6 L ABG Oxyhemoglobin ABG Sodium ABG Potassium 4.7 H ABG Chloride ABG Glucose 277 H Carboxyhemoglobin Sodium Potassium Chloride Carbon Dioxide BUN Creatinine Glucose POC Glucose 241 H Lactic Acid Calcium Phosphorus Magnesium Ferritin AST ALT Alkaline Phosphatase Lactate Dehydrogenase Troponin T C-Reactive Protein Total Protein Albumin HDL Cholesterol Arterial Blood Glucose 277 H Arterial Blood Ionized Calcium Urine WBC (Auto) Urine Creatinine 06/13/21 06/13/21 06/13/21 17:35 21:13 23:19 WBC RBC Hgb Hct MCV MCH MCHC RDW [place] % (Auto) [place] # (Auto) Seg Neutrophils % Seg Neuts % (Manual) Lymphocytes % (Manual) Monocytes % (Manual) Seg Neutrophils # Seg Neutrophils # Man Lymphocytes # (Manual) Monocytes # (Manual) PT APTT D-Dimer Heparin Anti-Xa Level 0.92 H ABG pH POC ABG pCO2 POC ABG pO2 ABG pO2 ABG Hemoglobin ABG Oxyhemoglobin ABG Sodium ABG Potassium ABG Chloride ABG Glucose Carboxyhemoglobin Sodium Potassium Chloride Carbon Dioxide BUN Creatinine Glucose POC Glucose 233 H 232 H Lactic Acid Calcium Phosphorus Magnesium Ferritin AST ALT Alkaline Phosphatase Lactate Dehydrogenase Troponin T C-Reactive Protein Total Protein Albumin HDL Cholesterol Arterial Blood Glucose Arterial Blood Ionized Calcium Urine WBC (Auto) Urine Creatinine 06/14/21 06/14/21 06/14/21 04:21 04:21 05:36 WBC 15.6 H RBC 2.26 L Hgb 7.6 L Hct 22.9 L MCV 101 H MCH 34 H MCHC RDW 15.3 H [place] % (Auto) [place] # (Auto) Seg Neutrophils % Seg Neuts % (Manual) Lymphocytes % (Manual) Monocytes % (Manual) Seg Neutrophils # Seg Neutrophils # Man Lymphocytes # (Manual) Monocytes # (Manual) PT APTT D-Dimer Heparin Anti-Xa Level ABG pH POC ABG pCO2 POC ABG pO2 ABG pO2 ABG Hemoglobin ABG Oxyhemoglobin ABG Sodium ABG Potassium ABG Chloride ABG Glucose Carboxyhemoglobin Sodium 149 H Potassium Chloride 107.8 H Carbon Dioxide BUN 66 H Creatinine 1.8 H Glucose 192 H POC Glucose 166 H Lactic Acid Calcium Phosphorus Magnesium Ferritin AST ALT Alkaline Phosphatase Lactate Dehydrogenase Troponin T C-Reactive Protein Total Protein Albumin HDL Cholesterol Arterial Blood Glucose Arterial Blood Ionized Calcium Urine WBC (Auto) Urine Creatinine 06/14/21 06/14/21 06/14/21 12:21 17:07 23:14 WBC RBC Hgb Hct MCV MCH MCHC RDW [place] % (Auto) [place] # (Auto) Seg Neutrophils % Seg Neuts % (Manual) Lymphocytes % (Manual) Monocytes % (Manual) Seg Neutrophils # Seg Neutrophils # Man Lymphocytes # (Manual) Monocytes # (Manual) PT APTT D-Dimer Heparin Anti-Xa Level ABG pH POC ABG pCO2 POC ABG pO2 ABG pO2 ABG Hemoglobin ABG Oxyhemoglobin ABG Sodium ABG Potassium ABG Chloride ABG Glucose Carboxyhemoglobin Sodium Potassium Chloride Carbon Dioxide BUN Creatinine Glucose POC Glucose 190 H 172 H 195 H Lactic Acid Calcium Phosphorus Magnesium Ferritin AST ALT Alkaline Phosphatase Lactate Dehydrogenase Troponin T C-Reactive Protein Total Protein Albumin HDL Cholesterol Arterial Blood Glucose Arterial Blood Ionized Calcium Urine WBC (Auto) Urine Creatinine 06/15/21 06/15/21 06/15/21 05:08 05:08 05:47 WBC 15.3 H RBC 2.23 L Hgb 7.3 L Hct 22.5 L MCV 101 H MCH 33 H MCHC RDW [place] % (Auto) [place] # (Auto) Seg Neutrophils % Seg Neuts % (Manual) Lymphocytes % (Manual) Monocytes % (Manual) Seg Neutrophils # Seg Neutrophils # Man Lymphocytes # (Manual) Monocytes # (Manual) PT APTT D-Dimer Heparin Anti-Xa Level ABG pH POC ABG pCO2 POC ABG pO2 ABG pO2 ABG Hemoglobin ABG Oxyhemoglobin ABG Sodium ABG Potassium ABG Chloride ABG Glucose Carboxyhemoglobin Sodium 147 H Potassium Chloride Carbon Dioxide BUN 60 H Creatinine 1.6 H Glucose 158 H POC Glucose 150 H Lactic Acid Calcium 8.2 L Phosphorus 5.90 H Magnesium 3.20 H Ferritin AST ALT Alkaline Phosphatase Lactate Dehydrogenase Troponin T C-Reactive Protein Total Protein Albumin HDL Cholesterol Arterial Blood Glucose Arterial Blood Ionized Calcium Urine WBC (Auto) Urine Creatinine 06/15/21 06/15/21 06/15/21 10:19 11:25 17:47 WBC RBC Hgb Hct MCV MCH MCHC RDW [place] % (Auto) [place] # (Auto) Seg Neutrophils % Seg Neuts % (Manual) Lymphocytes % (Manual) Monocytes % (Manual) Seg Neutrophils # Seg Neutrophils # Man Lymphocytes # (Manual) Monocytes # (Manual) PT APTT D-Dimer Heparin Anti-Xa Level ABG pH 7.471 H POC ABG pCO2 POC ABG pO2 ABG pO2 ABG Hemoglobin ABG Oxyhemoglobin ABG Sodium ABG Potassium ABG Chloride ABG Glucose Carboxyhemoglobin Sodium Potassium Chloride Carbon Dioxide BUN Creatinine Glucose POC Glucose 133 H 201 H Lactic Acid Calcium Phosphorus Magnesium Ferritin AST ALT Alkaline Phosphatase Lactate Dehydrogenase Troponin T C-Reactive Protein Total Protein Albumin HDL Cholesterol Arterial Blood Glucose Arterial Blood Ionized Calcium Urine WBC (Auto) Urine Creatinine 06/15/21 06/15/21 06/16/21 23:43 Unknown 04:31 WBC 13.8 H RBC 2.23 L Hgb 7.5 L Hct 22.4 L MCV 101 H MCH 34 H MCHC RDW [place] % (Auto) [place] # (Auto) Seg Neutrophils % Seg Neuts % (Manual) Lymphocytes % (Manual) Monocytes % (Manual) Seg Neutrophils # Seg Neutrophils # Man Lymphocytes # (Manual) Monocytes # (Manual) PT APTT D-Dimer Heparin Anti-Xa Level ABG pH POC ABG pCO2 POC ABG pO2 ABG pO2 ABG Hemoglobin ABG Oxyhemoglobin ABG Sodium ABG Potassium ABG Chloride ABG Glucose Carboxyhemoglobin Sodium Potassium Chloride Carbon Dioxide BUN Creatinine Glucose POC Glucose 148 H Lactic Acid Calcium Phosphorus Magnesium Ferritin AST ALT Alkaline Phosphatase Lactate Dehydrogenase Troponin T C-Reactive Protein Total Protein Albumin HDL Cholesterol Arterial Blood Glucose Arterial Blood Ionized Calcium Urine WBC (Auto) Urine Creatinine 74.7 H 06/16/21 06/16/21 06/16/21 04:31 05:48 11:47 WBC RBC Hgb Hct MCV MCH MCHC RDW [place] % (Auto) [place] # (Auto) Seg Neutrophils % Seg Neuts % (Manual) Lymphocytes % (Manual) Monocytes % (Manual) Seg Neutrophils # Seg Neutrophils # Man Lymphocytes # (Manual) Monocytes # (Manual) PT APTT D-Dimer Heparin Anti-Xa Level ABG pH POC ABG pCO2 POC ABG pO2 ABG pO2 ABG Hemoglobin ABG Oxyhemoglobin ABG Sodium ABG Potassium ABG Chloride ABG Glucose Carboxyhemoglobin Sodium Potassium Chloride Carbon Dioxide BUN 49 H Creatinine 1.3 H Glucose 194 H POC Glucose 184 H 190 H Lactic Acid Calcium Phosphorus 5.40 H Magnesium 2.90 H Ferritin AST ALT Alkaline Phosphatase Lactate Dehydrogenase Troponin T C-Reactive Protein Total Protein Albumin HDL Cholesterol Arterial Blood Glucose Arterial Blood Ionized Calcium Urine WBC (Auto) Urine Creatinine 06/16/21 06/16/21 06/16/21 18:51 18:51 23:13 WBC 12.4 H RBC 2.22 L Hgb 7.3 L Hct 22.4 L MCV 101 H MCH 33 H MCHC RDW [place] % (Auto) [place] # (Auto) Seg Neutrophils % Seg Neuts % (Manual) Lymphocytes % (Manual) Monocytes % (Manual) Seg Neutrophils # Seg Neutrophils # Man Lymphocytes # (Manual) Monocytes # (Manual) PT APTT 64.1 H* D-Dimer Heparin Anti-Xa Level ABG pH POC ABG pCO2 POC ABG pO2 ABG pO2 ABG Hemoglobin ABG Oxyhemoglobin ABG Sodium ABG Potassium ABG Chloride ABG Glucose Carboxyhemoglobin Sodium Potassium Chloride Carbon Dioxide BUN Creatinine Glucose POC Glucose 160 H Lactic Acid Calcium Phosphorus Magnesium Ferritin AST ALT Alkaline Phosphatase Lactate Dehydrogenase Troponin T C-Reactive Protein Total Protein Albumin HDL Cholesterol Arterial Blood Glucose Arterial Blood Ionized Calcium Urine WBC (Auto) Urine Creatinine 06/17/21 06/17/21 06/17/21 04:19 05:02 11:56 WBC RBC Hgb Hct MCV MCH MCHC RDW [place] % (Auto) [place] # (Auto) Seg Neutrophils % Seg Neuts % (Manual) Lymphocytes % (Manual) Monocytes % (Manual) Seg Neutrophils # Seg Neutrophils # Man Lymphocytes # (Manual) Monocytes # (Manual) PT APTT D-Dimer Heparin Anti-Xa Level 1.53 H ABG pH POC ABG pCO2 POC ABG pO2 ABG pO2 ABG Hemoglobin ABG Oxyhemoglobin ABG Sodium ABG Potassium ABG Chloride ABG Glucose Carboxyhemoglobin Sodium Potassium Chloride Carbon Dioxide BUN Creatinine Glucose POC Glucose 167 H 166 H Lactic Acid Calcium Phosphorus Magnesium Ferritin AST ALT Alkaline Phosphatase Lactate Dehydrogenase Troponin T C-Reactive Protein Total Protein Albumin HDL Cholesterol Arterial Blood Glucose Arterial Blood Ionized Calcium Urine WBC (Auto) Urine Creatinine 06/17/21 06/17/21 06/17/21 17:48 22:42 23:08 WBC RBC Hgb Hct MCV MCH MCHC RDW [place] % (Auto) [place] # (Auto) Seg Neutrophils % Seg Neuts % (Manual) Lymphocytes % (Manual) Monocytes % (Manual) Seg Neutrophils # Seg Neutrophils # Man Lymphocytes # (Manual) Monocytes # (Manual) PT APTT D-Dimer Heparin Anti-Xa Level ABG pH POC ABG pCO2 POC ABG pO2 ABG pO2 ABG Hemoglobin ABG Oxyhemoglobin ABG Sodium ABG Potassium ABG Chloride ABG Glucose Carboxyhemoglobin Sodium Potassium Chloride Carbon Dioxide BUN Creatinine Glucose POC Glucose 159 H 122 H 114 H Lactic Acid Calcium Phosphorus Magnesium Ferritin AST ALT Alkaline Phosphatase Lactate Dehydrogenase Troponin T C-Reactive Protein Total Protein Albumin HDL Cholesterol Arterial Blood Glucose Arterial Blood Ionized Calcium Urine WBC (Auto) Urine Creatinine 06/18/21 06/18/21 06/18/21 05:40 06:20 13:11 WBC RBC 2.19 L Hgb 7.3 L Hct 21.9 L MCV 100 H MCH 33 H MCHC RDW [place] % (Auto) [place] # (Auto) Seg Neutrophils % Seg Neuts % (Manual) Lymphocytes % (Manual) Monocytes % (Manual) Seg Neutrophils # Seg Neutrophils # Man Lymphocytes # (Manual) Monocytes # (Manual) PT APTT D-Dimer Heparin Anti-Xa Level ABG pH POC ABG pCO2 POC ABG pO2 ABG pO2 ABG Hemoglobin ABG Oxyhemoglobin ABG Sodium ABG Potassium ABG Chloride ABG Glucose Carboxyhemoglobin Sodium Potassium Chloride Carbon Dioxide BUN Creatinine Glucose POC Glucose 174 H 149 H Lactic Acid Calcium Phosphorus Magnesium Ferritin AST ALT Alkaline Phosphatase Lactate Dehydrogenase Troponin T C-Reactive Protein Total Protein Albumin HDL Cholesterol Arterial Blood Glucose Arterial Blood Ionized Calcium Urine WBC (Auto) Urine Creatinine 06/18/21 06/18/21 06/18/21 18:50 21:45 23:12 WBC RBC Hgb Hct MCV MCH MCHC RDW [place] % (Auto) [place] # (Auto) Seg Neutrophils % Seg Neuts % (Manual) Lymphocytes % (Manual) Monocytes % (Manual) Seg Neutrophils # Seg Neutrophils # Man Lymphocytes # (Manual) Monocytes # (Manual) PT APTT D-Dimer Heparin Anti-Xa Level ABG pH POC ABG pCO2 POC ABG pO2 ABG pO2 ABG Hemoglobin ABG Oxyhemoglobin ABG Sodium ABG Potassium ABG Chloride ABG Glucose Carboxyhemoglobin Sodium Potassium Chloride Carbon Dioxide BUN Creatinine Glucose POC Glucose 152 H 151 H 178 H Lactic Acid Calcium Phosphorus Magnesium Ferritin AST ALT Alkaline Phosphatase Lactate Dehydrogenase Troponin T C-Reactive Protein Total Protein Albumin HDL Cholesterol Arterial Blood Glucose Arterial Blood Ionized Calcium Urine WBC (Auto) Urine Creatinine 06/19/21 06/19/21 06/19/21 06:20 06:20 11:54 WBC RBC 2.19 L Hgb 7.4 L Hct 22.2 L MCV 102 H MCH 34 H MCHC RDW [place] % (Auto) 11.3 H [place] # (Auto) 1.0 H Seg Neutrophils % Seg Neuts % (Manual) Lymphocytes % (Manual) Monocytes % (Manual) Seg Neutrophils # Seg Neutrophils # Man Lymphocytes # (Manual) Monocytes # (Manual) PT APTT D-Dimer Heparin Anti-Xa Level ABG pH POC ABG pCO2 POC ABG pO2 ABG pO2 ABG Hemoglobin ABG Oxyhemoglobin ABG Sodium ABG Potassium ABG Chloride ABG Glucose Carboxyhemoglobin Sodium 148 H Potassium Chloride 109.4 H Carbon Dioxide BUN 26 H Creatinine Glucose 109 H POC Glucose 131 H Lactic Acid Calcium Phosphorus Magnesium 2.40 H Ferritin AST ALT Alkaline Phosphatase Lactate Dehydrogenase Troponin T C-Reactive Protein Total Protein Albumin HDL Cholesterol Arterial Blood Glucose Arterial Blood Ionized Calcium Urine WBC (Auto) Urine Creatinine 06/19/21 06/19/21 06/19/21 17:21 21:31 23:13 WBC RBC Hgb Hct MCV MCH MCHC RDW [place] % (Auto) [place] # (Auto) Seg Neutrophils % Seg Neuts % (Manual) Lymphocytes % (Manual) Monocytes % (Manual) Seg Neutrophils # Seg Neutrophils # Man Lymphocytes # (Manual) Monocytes # (Manual) PT APTT D-Dimer Heparin Anti-Xa Level ABG pH POC ABG pCO2 POC ABG pO2 ABG pO2 ABG Hemoglobin ABG Oxyhemoglobin ABG Sodium ABG Potassium ABG Chloride ABG Glucose Carboxyhemoglobin Sodium Potassium Chloride Carbon Dioxide BUN Creatinine Glucose POC Glucose 178 H 174 H 216 H Lactic Acid Calcium Phosphorus Magnesium Ferritin AST ALT Alkaline Phosphatase Lactate Dehydrogenase Troponin T C-Reactive Protein Total Protein Albumin HDL Cholesterol Arterial Blood Glucose Arterial Blood Ionized Calcium Urine WBC (Auto) Urine Creatinine 06/20/21 06/20/21 06/20/21 04:18 05:15 11:22 WBC RBC 2.26 L Hgb 7.7 L Hct 22.9 L MCV 101 H MCH 34 H MCHC RDW [place] % (Auto) [place] # (Auto) Seg Neutrophils % Seg Neuts % (Manual) Lymphocytes % (Manual) Monocytes % (Manual) Seg Neutrophils # Seg Neutrophils # Man Lymphocytes # (Manual) Monocytes # (Manual) PT APTT D-Dimer Heparin Anti-Xa Level ABG pH POC ABG pCO2 POC ABG pO2 ABG pO2 ABG Hemoglobin ABG Oxyhemoglobin ABG Sodium ABG Potassium ABG Chloride ABG Glucose Carboxyhemoglobin Sodium Potassium Chloride Carbon Dioxide BUN Creatinine Glucose POC Glucose 119 H 177 H Lactic Acid Calcium Phosphorus Magnesium Ferritin AST ALT Alkaline Phosphatase Lactate Dehydrogenase Troponin T C-Reactive Protein Total Protein Albumin HDL Cholesterol Arterial Blood Glucose Arterial Blood Ionized Calcium Urine WBC (Auto) Urine Creatinine 06/20/21 06/20/21 06/20/21 13:30 17:58 21:24 WBC RBC Hgb Hct MCV MCH MCHC RDW [place] % (Auto) [place] # (Auto) Seg Neutrophils % Seg Neuts % (Manual) Lymphocytes % (Manual) Monocytes % (Manual) Seg Neutrophils # Seg Neutrophils # Man Lymphocytes # (Manual) Monocytes # (Manual) PT APTT D-Dimer Heparin Anti-Xa Level ABG pH POC ABG pCO2 POC ABG pO2 ABG pO2 ABG Hemoglobin ABG Oxyhemoglobin ABG Sodium ABG Potassium ABG Chloride ABG Glucose Carboxyhemoglobin Sodium Potassium Chloride Carbon Dioxide BUN 31 H Creatinine Glucose 196 H POC Glucose 151 H 141 H Lactic Acid Calcium Phosphorus Magnesium Ferritin AST ALT Alkaline Phosphatase Lactate Dehydrogenase Troponin T C-Reactive Protein Total Protein Albumin HDL Cholesterol Arterial Blood Glucose Arterial Blood Ionized Calcium Urine WBC (Auto) Urine Creatinine 06/20/21 06/21/21 06/21/21 23:46 04:07 04:59 WBC RBC Hgb Hct MCV MCH MCHC RDW [place] % (Auto) [place] # (Auto) Seg Neutrophils % Seg Neuts % (Manual) Lymphocytes % (Manual) Monocytes % (Manual) Seg Neutrophils # Seg Neutrophils # Man Lymphocytes # (Manual) Monocytes # (Manual) PT APTT D-Dimer Heparin Anti-Xa Level ABG pH POC ABG pCO2 POC ABG pO2 ABG pO2 ABG Hemoglobin ABG Oxyhemoglobin ABG Sodium ABG Potassium ABG Chloride ABG Glucose Carboxyhemoglobin Sodium Potassium Chloride Carbon Dioxide BUN 36 H Creatinine Glucose 220 H POC Glucose 137 H 213 H Lactic Acid Calcium Phosphorus Magnesium Ferritin AST 79 H ALT 79 H Alkaline Phosphatase 159 H Lactate Dehydrogenase Troponin T C-Reactive Protein Total Protein Albumin 2.6 L HDL Cholesterol Arterial Blood Glucose Arterial Blood Ionized Calcium Urine WBC (Auto) Urine Creatinine 06/21/21 06/21/21 06/21/21 08:10 11:45 17:18 WBC RBC 2.13 L Hgb 7.4 L Hct 21.1 L MCV 99 H MCH 35 H MCHC 35 H RDW [place] % (Auto) 9.3 H [place] # (Auto) 0.9 H Seg Neutrophils % Seg Neuts % (Manual) Lymphocytes % (Manual) Monocytes % (Manual) Seg Neutrophils # Seg Neutrophils # Man Lymphocytes # (Manual) Monocytes # (Manual) PT APTT D-Dimer Heparin Anti-Xa Level ABG pH POC ABG pCO2 POC ABG pO2 ABG pO2 ABG Hemoglobin ABG Oxyhemoglobin ABG Sodium ABG Potassium ABG Chloride ABG Glucose Carboxyhemoglobin Sodium Potassium Chloride Carbon Dioxide BUN Creatinine Glucose POC Glucose 176 H 129 H Lactic Acid Calcium Phosphorus Magnesium Ferritin AST ALT Alkaline Phosphatase Lactate Dehydrogenase Troponin T C-Reactive Protein Total Protein Albumin HDL Cholesterol Arterial Blood Glucose Arterial Blood Ionized Calcium Urine WBC (Auto) Urine Creatinine 06/21/21 06/22/21 06/22/21 23:02 04:36 04:36 WBC RBC 2.38 L Hgb 8.0 L Hct 23.7 L MCV 100 H MCH 33 H MCHC RDW [place] % (Auto) [place] # (Auto) Seg Neutrophils % Seg Neuts % (Manual) Lymphocytes % (Manual) Monocytes % (Manual) Seg Neutrophils # Seg Neutrophils # Man Lymphocytes # (Manual) Monocytes # (Manual) PT APTT D-Dimer Heparin Anti-Xa Level ABG pH POC ABG pCO2 POC ABG pO2 ABG pO2 ABG Hemoglobin ABG Oxyhemoglobin ABG Sodium ABG Potassium ABG Chloride ABG Glucose Carboxyhemoglobin Sodium Potassium Chloride Carbon Dioxide BUN 36 H Creatinine Glucose 167 H POC Glucose 111 H Lactic Acid Calcium Phosphorus Magnesium Ferritin AST ALT Alkaline Phosphatase Lactate Dehydrogenase Troponin T C-Reactive Protein Total Protein Albumin HDL Cholesterol Arterial Blood Glucose Arterial Blood Ionized Calcium Urine WBC (Auto) Urine Creatinine 06/22/21 06/22/21 06/22/21 05:22 12:12 18:17 WBC RBC Hgb Hct MCV MCH MCHC RDW [place] % (Auto) [place] # (Auto) Seg Neutrophils % Seg Neuts % (Manual) Lymphocytes % (Manual) Monocytes % (Manual) Seg Neutrophils # Seg Neutrophils # Man Lymphocytes # (Manual) Monocytes # (Manual) PT APTT D-Dimer Heparin Anti-Xa Level ABG pH POC ABG pCO2 POC ABG pO2 ABG pO2 ABG Hemoglobin ABG Oxyhemoglobin ABG Sodium ABG Potassium ABG Chloride ABG Glucose Carboxyhemoglobin Sodium Potassium Chloride Carbon Dioxide BUN Creatinine Glucose POC Glucose 160 H 176 H 161 H Lactic Acid Calcium Phosphorus Magnesium Ferritin AST ALT Alkaline Phosphatase Lactate Dehydrogenase Troponin T C-Reactive Protein Total Protein Albumin HDL Cholesterol Arterial Blood Glucose Arterial Blood Ionized Calcium Urine WBC (Auto) Urine Creatinine 06/22/21 06/22/21 06/23/21 21:30 22:29 04:00 WBC RBC 2.22 L Hgb 7.5 L Hct 22.4 L MCV 101 H MCH 34 H MCHC RDW [place] % (Auto) [place] # (Auto) Seg Neutrophils % Seg Neuts % (Manual) Lymphocytes % (Manual) Monocytes % (Manual) Seg Neutrophils # Seg Neutrophils # Man Lymphocytes # (Manual) Monocytes # (Manual) PT APTT D-Dimer Heparin Anti-Xa Level ABG pH POC ABG pCO2 POC ABG pO2 ABG pO2 ABG Hemoglobin ABG Oxyhemoglobin ABG Sodium ABG Potassium ABG Chloride ABG Glucose Carboxyhemoglobin Sodium Potassium Chloride Carbon Dioxide BUN Creatinine Glucose POC Glucose 175 H 222 H Lactic Acid Calcium Phosphorus Magnesium Ferritin AST ALT Alkaline Phosphatase Lactate Dehydrogenase Troponin T C-Reactive Protein Total Protein Albumin HDL Cholesterol Arterial Blood Glucose Arterial Blood Ionized Calcium Urine WBC (Auto) Urine Creatinine 06/23/21 06/23/21 06/23/21 04:00 05:09 10:50 WBC RBC Hgb Hct MCV MCH MCHC RDW [place] % (Auto) [place] # (Auto) Seg Neutrophils % Seg Neuts % (Manual) Lymphocytes % (Manual) Monocytes % (Manual) Seg Neutrophils # Seg Neutrophils # Man Lymphocytes # (Manual) Monocytes # (Manual) PT APTT D-Dimer Heparin Anti-Xa Level ABG pH 7.484 H POC ABG pCO2 POC ABG pO2 ABG pO2 ABG Hemoglobin 7.1 L ABG Oxyhemoglobin ABG Sodium ABG Potassium 4.6 H ABG Chloride ABG Glucose 158 H Carboxyhemoglobin Sodium Potassium 5.2 H Chloride Carbon Dioxide BUN 43 H Creatinine 1.3 H Glucose 237 H POC Glucose 212 H Lactic Acid Calcium Phosphorus Magnesium Ferritin AST ALT Alkaline Phosphatase Lactate Dehydrogenase Troponin T C-Reactive Protein Total Protein Albumin HDL Cholesterol Arterial Blood Glucose 158 H Arterial Blood Ionized Calcium 4.3 L Urine WBC (Auto) Urine Creatinine 06/23/21 06/23/21 06/23/21 12:16 17:03 23:27 WBC RBC Hgb Hct MCV MCH MCHC RDW [place] % (Auto) [place] # (Auto) Seg Neutrophils % Seg Neuts % (Manual) Lymphocytes % (Manual) Monocytes % (Manual) Seg Neutrophils # Seg Neutrophils # Man Lymphocytes # (Manual) Monocytes # (Manual) PT APTT D-Dimer Heparin Anti-Xa Level ABG pH POC ABG pCO2 POC ABG pO2 ABG pO2 ABG Hemoglobin ABG Oxyhemoglobin ABG Sodium ABG Potassium ABG Chloride ABG Glucose Carboxyhemoglobin Sodium Potassium Chloride Carbon Dioxide BUN Creatinine Glucose POC Glucose 144 H 199 H 250 H Lactic Acid Calcium Phosphorus Magnesium Ferritin AST ALT Alkaline Phosphatase Lactate Dehydrogenase Troponin T C-Reactive Protein Total Protein Albumin HDL Cholesterol Arterial Blood Glucose Arterial Blood Ionized Calcium Urine WBC (Auto) Urine Creatinine 06/24/21 06/24/21 06/24/21 04:40 04:40 05:21 WBC RBC 2.07 L Hgb 7.1 L Hct 20.4 L MCV 99 H MCH 34 H MCHC 35 H RDW [place] % (Auto) [place] # (Auto) Seg Neutrophils % Seg Neuts % (Manual) Lymphocytes % (Manual) Monocytes % (Manual) Seg Neutrophils # Seg Neutrophils # Man Lymphocytes # (Manual) Monocytes # (Manual) PT APTT D-Dimer Heparin Anti-Xa Level ABG pH POC ABG pCO2 POC ABG pO2 ABG pO2 ABG Hemoglobin ABG Oxyhemoglobin ABG Sodium ABG Potassium ABG Chloride ABG Glucose Carboxyhemoglobin Sodium Potassium Chloride Carbon Dioxide BUN 45 H Creatinine Glucose 229 H POC Glucose 192 H Lactic Acid Calcium Phosphorus Magnesium Ferritin AST 83 H ALT 80 H Alkaline Phosphatase 142 H Lactate Dehydrogenase Troponin T C-Reactive Protein Total Protein Albumin 2.8 L HDL Cholesterol Arterial Blood Glucose Arterial Blood Ionized Calcium Urine WBC (Auto) Urine Creatinine 06/24/21 06/24/21 06/24/21 12:11 18:14 23:17 WBC RBC Hgb Hct MCV MCH MCHC RDW [place] % (Auto) [place] # (Auto) Seg Neutrophils % Seg Neuts % (Manual) Lymphocytes % (Manual) Monocytes % (Manual) Seg Neutrophils # Seg Neutrophils # Man Lymphocytes # (Manual) Monocytes # (Manual) PT APTT D-Dimer Heparin Anti-Xa Level ABG pH POC ABG pCO2 POC ABG pO2 ABG pO2 ABG Hemoglobin ABG Oxyhemoglobin ABG Sodium ABG Potassium ABG Chloride ABG Glucose Carboxyhemoglobin Sodium Potassium Chloride Carbon Dioxide BUN Creatinine Glucose POC Glucose 197 H 181 H 185 H Lactic Acid Calcium Phosphorus Magnesium Ferritin AST ALT Alkaline Phosphatase Lactate Dehydrogenase Troponin T C-Reactive Protein Total Protein Albumin HDL Cholesterol Arterial Blood Glucose Arterial Blood Ionized Calcium Urine WBC (Auto) Urine Creatinine 06/25/21 06/25/21 06/25/21 05:25 11:32 18:42 WBC RBC Hgb Hct MCV MCH MCHC RDW [place] % (Auto) [place] # (Auto) Seg Neutrophils % Seg Neuts % (Manual) Lymphocytes % (Manual) Monocytes % (Manual) Seg Neutrophils # Seg Neutrophils # Man Lymphocytes # (Manual) Monocytes # (Manual) PT APTT D-Dimer Heparin Anti-Xa Level ABG pH POC ABG pCO2 POC ABG pO2 ABG pO2 ABG Hemoglobin ABG Oxyhemoglobin ABG Sodium ABG Potassium ABG Chloride ABG Glucose Carboxyhemoglobin Sodium Potassium Chloride Carbon Dioxide BUN Creatinine Glucose POC Glucose 151 H 196 H 162 H Lactic Acid Calcium Phosphorus Magnesium Ferritin AST ALT Alkaline Phosphatase Lactate Dehydrogenase Troponin T C-Reactive Protein Total Protein Albumin HDL Cholesterol Arterial Blood Glucose Arterial Blood Ionized Calcium Urine WBC (Auto) Urine Creatinine 06/25/21 06/26/21 06/26/21 22:19 00:27 07:43 WBC RBC Hgb Hct MCV MCH MCHC RDW [place] % (Auto) [place] # (Auto) Seg Neutrophils % Seg Neuts % (Manual) Lymphocytes % (Manual) Monocytes % (Manual) Seg Neutrophils # Seg Neutrophils # Man Lymphocytes # (Manual) Monocytes # (Manual) PT APTT D-Dimer Heparin Anti-Xa Level ABG pH POC ABG pCO2 POC ABG pO2 ABG pO2 ABG Hemoglobin ABG Oxyhemoglobin ABG Sodium ABG Potassium ABG Chloride ABG Glucose Carboxyhemoglobin Sodium Potassium Chloride Carbon Dioxide BUN Creatinine Glucose POC Glucose 143 H 139 H 122 H Lactic Acid Calcium Phosphorus Magnesium Ferritin AST ALT Alkaline Phosphatase Lactate Dehydrogenase Troponin T C-Reactive Protein Total Protein Albumin HDL Cholesterol Arterial Blood Glucose Arterial Blood Ionized Calcium Urine WBC (Auto) Urine Creatinine 06/26/21 06/27/21 06/27/21 11:38 00:09 07:24 WBC RBC Hgb Hct MCV MCH MCHC RDW [place] % (Auto) [place] # (Auto) Seg Neutrophils % Seg Neuts % (Manual) Lymphocytes % (Manual) Monocytes % (Manual) Seg Neutrophils # Seg Neutrophils # Man Lymphocytes # (Manual) Monocytes # (Manual) PT APTT D-Dimer Heparin Anti-Xa Level ABG pH POC ABG pCO2 POC ABG pO2 ABG pO2 ABG Hemoglobin ABG Oxyhemoglobin ABG Sodium ABG Potassium ABG Chloride ABG Glucose Carboxyhemoglobin Sodium Potassium Chloride Carbon Dioxide BUN Creatinine Glucose POC Glucose 129 H 199 H 164 H Lactic Acid Calcium Phosphorus Magnesium Ferritin AST ALT Alkaline Phosphatase Lactate Dehydrogenase Troponin T C-Reactive Protein Total Protein Albumin HDL Cholesterol Arterial Blood Glucose Arterial Blood Ionized Calcium Urine WBC (Auto) Urine Creatinine 06/27/21 11:54 WBC RBC Hgb Hct MCV MCH MCHC RDW [place] % (Auto) [place] # (Auto) Seg Neutrophils % Seg Neuts % (Manual) Lymphocytes % (Manual) Monocytes % (Manual) Seg Neutrophils # Seg Neutrophils # Man Lymphocytes # (Manual) Monocytes # (Manual) PT APTT D-Dimer Heparin Anti-Xa Level ABG pH POC ABG pCO2 POC ABG pO2 ABG pO2 ABG Hemoglobin ABG Oxyhemoglobin ABG Sodium ABG Potassium ABG Chloride ABG Glucose Carboxyhemoglobin Sodium Potassium Chloride Carbon Dioxide BUN Creatinine Glucose POC Glucose 178 H Lactic Acid Calcium Phosphorus Magnesium Ferritin AST ALT Alkaline Phosphatase Lactate Dehydrogenase Troponin T C-Reactive Protein Total Protein Albumin HDL Cholesterol Arterial Blood Glucose Arterial Blood Ionized Calcium Urine WBC (Auto) Urine Creatinine Allied health notes reviewed: RT
== END 2021-06-27 16:40 | disposition hospice, home (50) | DRG 4 ==
LOC: ED 08:40 → CC1 13:48 → 4A 06-23 22:34
PROVIDERS: ADMIT Internal Medicine; ATTEND Internal Medicine
PROC: 4A033R1 Measurement of Arterial Saturation, Peripheral, Percutaneous Approach (ICD-10-PCS; 2021-05-25)
PROC: 06HM33Z Insertion of Infusion Device into Right Femoral Vein, Percutaneous Approach (ICD-10-PCS; 2021-05-25)
PROC: 05H833Z Insertion of Infusion Device into Left Axillary Vein, Percutaneous Approach (ICD-10-PCS; 2021-05-29)
PROC: 5A1955Z Respiratory Ventilation, Greater than 96 Consecutive Hours (ICD-10-PCS; principal; 2021-06-11)
PROC: 0BH17EZ Insertion of Endotracheal Airway into Trachea, Via Natural or Artificial Opening (ICD-10-PCS; 2021-06-11)
PROC: 0B110F4 Bypass Trachea to Cutaneous with Tracheostomy Device, Open Approach (ICD-10-PCS; 2021-06-12)
PROC: 0DH63UZ Insertion of Feeding Device into Stomach, Percutaneous Approach (ICD-10-PCS; 2021-06-12)
DX: A41.9 Sepsis, unspecified organism (principal); J96.01 Acute respiratory failure with hypoxia; I46.9 Cardiac arrest, cause unspecified; G92.8 Other toxic encephalopathy; N17.0 Acute kidney failure with tubular necrosis; G93.1 Anoxic brain damage, not elsewhere classified; I48.20 Chronic atrial fibrillation, unspecified; E46 Unspecified protein-calorie malnutrition; Z68.23 Body mass index [BMI] 23.0-23.9, adult; I25.10 Atherosclerotic heart disease of native coronary artery without angina pectoris; I25.2 Old myocardial infarction; E78.5 Hyperlipidemia, unspecified; E11.65 Type 2 diabetes mellitus with hyperglycemia; Z83.3 Family history of diabetes mellitus; Z82.49 Family history of ischemic heart disease and other diseases of the circulatory system; G40.909 Epilepsy, unspecified, not intractable, without status epilepticus; Z20.822 Contact with and (suspected) exposure to COVID-19; I10 Essential (primary) hypertension
CPT/HCPCS: 36415; 36600; 70450; 70551; 70552; 71045; 71275; 74018; 74177; 80048; 80053; 80061; 80076; 81001; 82140; 82270; 82271; 82565; 82570; 82728; 82803; 82805; 82947; 82962; 83615; 83735; 83880; 83935; 84100; 84145; 84295; 84300; 84478; 84484; 85007; 85014; 85018; 85025; 85027; 85049; 85379; 85520; 85610; 85730; 86140; 86850; 86900; 86901; 87040; 87070; 87076; 87086; 87186; 87205; 93005; 93306; 94002; 94003; 94640; 94760; 95819; G0378; J0171; J0360; J0690; J0692; J0696; J1644; J1815; J1953; J2060; J2250; J2270; J2405; J2704; J2765; J3370; J3480; J7030; J7040; J7050; J7070; Q9967; U0003

== ENCOUNTER 2021-07-09 09:30 | Emergency (ER) | payer MEDICARE ==
--- NOTE | 2021-07-09 09:45 | Emergency Department Report ---
ED CPR HPI - General Chief Complaint: Cardiac Arrest/CPR Stated Complaint: CARDIAC ARREST Time Seen by Provider: 07/09/21 09:37 Source: EMS Mode of arrival: Stretcher Limitations: Other - History of Present Illness Initial Comments: Patient is 65 years old female with history of respiratory failure status post tracheostomy. Patient was admitted to the emergency room here approximately 1 month ago after cardiac arrest. Patient today brought to the emergency room via EMS from home in a full cardiac arrest, CPR in progress. EMS stated that patient family stated that the last time I saw her breathing was 30 minutes prior to the EMS arrival. Upon arrival EMS stated that patient was not breathing and has no pulse. Rhythm showed asystole. ACLS protocol immediately started by EMS. Patient received epinephrine. Upon arrival to the ER, patient in asystole. Pupils are 5 mm fixed and dilated. Patient pronounced at 9:29 AM. Total resuscitation time is 35 minutes. For further information please refer to code sheets. MD Complaint: found unresponsive -: unknown Place: home Initial Findings in the Field: no pulse, systole ROSC in the Field: No Associated Injuries: No Treatments Prior to Arrival: epinephrine mgs # - Related Data Previous Rx's Medication Instructions Recorded Last Taken Type Aspirin EC [Halfprin EC] 81 mg PO QDAY #30 tablet. 05/16/20 02/26/21 22:00 Rx AtorvaSTATin [Lipitor] 40 mg PO QHS #60 tablet 05/16/20 02/26/21 22:00 Rx Citalopram [Celexa] 20 mg PO QDAY #60 tablet 05/16/20 02/26/21 22:00 Rx Acetaminophen [Acetaminophen TAB] 650 mg PO Q6H PRN tablet 06/27/21 Unknown Rx Apixaban [Eliquis] 5 mg PO Q12HR tablet 06/27/21 Unknown Rx Dextrose 50% in Water [D50W (25GM) 50 ml IV Q30MIN PRN syringe 06/27/21 Unknown Rx Syringe] Docusate Sodium [Colace ORAL LIQ] 100 mg PO BID oral.liqd 06/27/21 Unknown Rx Doxazosin [Cardura] 2 mg PO BID tablet 06/27/21 Unknown Rx Famotidine [Pepcid] 20 mg FEEDTUBE BID tablet 06/27/21 Unknown Rx Free Water 150 ml PO Q4HR oral.liqd 06/27/21 Unknown Rx Glycopyrrolate 2 mg PO Q8HR tablet 06/27/21 Unknown Rx Insulin Glargine [Lantus VIAL] 30 units SUB-Q QHS units 06/27/21 Unknown Rx Lipase/Protease/Amylase [Pancreaze 1 each FEEDTUBE PRN PRN capsule 06/27/21 Unknown Rx 10,500 Unit] Lispro Insulin [HumaLOG] 0 unit SUB-Q Q6HR units 06/27/21 Unknown Rx Min Oil/Petrolatum [Artificial 1 applic OU Q4HR PRN tube 06/27/21 Unknown Rx Tears Ophth Oint] Petrolatum,White [Vaseline Lip 1 applic TP Q2HR PRN tube 06/27/21 Unknown Rx Therapy] Scopolamine [Transderm-Scop] 1 each TD Q3D patch 06/27/21 Unknown Rx Sennosides/Docusate [Senokot S] 1 tab FEEDTUBE BID tablet 06/27/21 Unknown Rx Simple Syrup 15 ml FEEDTUBE PRN PRN oral.liqd 06/27/21 Unknown Rx Simple Syrup 30 ml FEEDTUBE PRN PRN oral.liqd 06/27/21 Unknown Rx Sodium Bicarbonate 325 mg FEEDTUBE PRN PRN tablet 06/27/21 Unknown Rx Valsartan [Diovan] 160 mg PO BID tablet 06/27/21 Unknown Rx bisacodyL [Dulcolax suppos] 10 mg LA QDAY PRN supp.rect 06/27/21 Unknown Rx hydrALAZINE [Apresoline TAB] 50 mg PO Q8HR tablet 06/27/21 Unknown Rx labetaloL [Labetalol 100mg TAB] 300 mg PO BID tablet 06/27/21 Unknown Rx levETIRAcetam [Keppra] 250 mg FEEDTUBE Q12HR oral.liqd 06/27/21 Unknown Rx polyethylene glycoL 3350 [Miralax 17 gm PO QDAY powd.pack 06/27/21 Unknown Rx 3350] Allergies Allergy/AdvReac Type Severity Reaction Status Date / Time No Known Allergies Allergy Unverified 05/11/20 05:28 ED Review of Systems ROS: Stated complaint: CARDIAC ARREST Other details as noted in HPI Comment: Unobtainable due to pts medical conditions ED Past Medical Hx - Past Medical History Previous Medical History?: Yes Hx Hypertension: Yes Hx Heart Attack/AMI: Yes (s/p stents; cardiac arrest prior to admission) Hx Diabetes: Yes Hx Deep Vein Thrombosis: No Hx Liver Disease: No Hx Renal Disease: No Hx Seizures: Yes Additional medical history: high chol,. 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 05/16/20 05/29/21 02/26/21 22:00 Rx AtorvaSTATin [Lipitor] 40 mg PO QHS #60 tablet 05/16/20 05/29/21 02/26/21 22:00 Rx Citalopram [Celexa] 20 mg PO QDAY #60 tablet 05/16/20 05/29/21 02/26/21 22:00 Rx Acetaminophen [Acetaminophen TAB] 650 mg PO Q6H PRN tablet 06/27/21 Unknown Rx Apixaban [Eliquis] 5 mg PO Q12HR tablet 06/27/21 Unknown Rx Dextrose 50% in Water [D50W (25GM) 50 ml IV Q30MIN PRN syringe 06/27/21 Unknown Rx Syringe] Docusate Sodium [Colace ORAL LIQ] 100 mg PO BID oral.liqd 06/27/21 Unknown Rx Doxazosin [Cardura] 2 mg PO BID tablet 06/27/21 Unknown Rx Famotidine [Pepcid] 20 mg FEEDTUBE BID tablet 06/27/21 Unknown Rx Free Water 150 ml PO Q4HR oral.liqd 06/27/21 Unknown Rx Glycopyrrolate 2 mg PO Q8HR tablet 06/27/21 Unknown Rx Insulin Glargine [Lantus VIAL] 30 units SUB-Q QHS units 06/27/21 Unknown Rx Lipase/Protease/Amylase [Pancreaze 1 each FEEDTUBE PRN PRN capsule 06/27/21 Unknown Rx 10,500 Unit] Lispro Insulin [HumaLOG] 0 unit SUB-Q Q6HR units 06/27/21 Unknown Rx Min Oil/Petrolatum [Artificial 1 applic OU Q4HR PRN tube 06/27/21 Unknown Rx Tears Ophth Oint] Petrolatum,White [Vaseline Lip 1 applic TP Q2HR PRN tube 06/27/21 Unknown Rx Therapy] Scopolamine [Transderm-Scop] 1 each TD Q3D patch 06/27/21 Unknown Rx Sennosides/Docusate [Senokot S] 1 tab FEEDTUBE BID tablet 06/27/21 Unknown Rx Simple Syrup 15 ml FEEDTUBE PRN PRN oral.liqd 06/27/21 Unknown Rx Simple Syrup 30 ml FEEDTUBE PRN PRN oral.liqd 06/27/21 Unknown Rx Sodium Bicarbonate 325 mg FEEDTUBE PRN PRN tablet 06/27/21 Unknown Rx Valsartan [Diovan] 160 mg PO BID tablet 06/27/21 Unknown Rx bisacodyL [Dulcolax suppos] 10 mg LA QDAY PRN supp.rect 06/27/21 Unknown Rx hydrALAZINE [Apresoline TAB] 50 mg PO Q8HR tablet 06/27/21 Unknown Rx labetaloL [Labetalol 100mg TAB] 300 mg PO BID tablet 06/27/21 Unknown Rx levETIRAcetam [Keppra] 250 mg FEEDTUBE Q12HR oral.liqd 06/27/21 Unknown Rx polyethylene glycoL 3350 [Miralax 17 gm PO QDAY powd.pack 06/27/21 Unknown Rx 3350] ED Physical Exam - General Limitations: Other General appearance: other (CPR in progress) - Head Head exam: Present: atraumatic - Eye Pupils: Present: other (Pupils are 5 mm dilated and fixed.) - ENT ENT exam: Present: mucous membranes dry - Neck Neck exam: Present: other (Tracheostomy in place.) - Respiratory Respiratory exam: Present: other (No spontaneous breathing.) - GI/Abdominal GI/Abdominal exam: Present: other (No spontaneous heart tone.) - Neurological Exam Neurological exam: Present: other (CPR in progress.) - Skin Skin exam: Present: warm Critical Care Time: Yes Critical care time in (mins) excluding proc time.: 35 Critical care attestation.: If time is entered above; I have spent that time in minutes in the direct care of this critically ill patient, excluding procedure time. ED Disposition Clinical Impression: Cardiopulmonary arrest Disposition: 20 Is pt being admited?: No Condition: Stable
== END 2021-07-09 11:22 ==
LOC: ED 09:30
DX: I46.9 Cardiac arrest, cause unspecified (principal); I10 Essential (primary) hypertension; E11.9 Type 2 diabetes mellitus without complications; Z98.890 Other specified postprocedural states; Z79.899 Other long term (current) drug therapy
CPT/HCPCS: 92950